=== PATIENT | male | born 1950 | race Caucasian/White ===

== ENCOUNTER 2017-11-30 10:46 | Outpatient (RCR) | payer MEDICARE, OTHER, SELFPAY ==
[2017-11-30 11:54] LABS: International Normalized Ratio 2.3; Prothrombin Time (Protime)PT. 24.3 SECONDS (11.7-14.9)
[2017-11-30 12:11] LABS: Anion Gap 8 (5-15); BUN 52 mg/dL (7-18); BUN/Creat Ratio 18.8 RATIO (10-20); Calcium,Total 9.1 mg/dL (8.5-10.1); Chloride 109 mmol/L (98-107); Creatinine, Serum 2.77 mg/dL (0.70-1.30); EST Glomerular Filtration Rate 24 mL/min (>60); Est Glom Filt Rate - Afr Amer 29 mL/min (>60); Glucose 137 mg/dL (70-110); Potassium 4.2 mmol/L (3.5-5.1); Sodium Level 140 mmol/L (136-145)
== END 2017-11-30 11:10 | disposition home or self-care (01) ==
LOC: LAB 10:46
PROVIDERS: Family Provider Family Medicine; PCP Family Medicine; Visit Provider Internal Medicine Cardiovascular Disease
DX: Z95.2 Presence of prosthetic heart valve (principal); Z79.01 Long term (current) use of 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; I35.9 Nonrheumatic aortic valve disorder, unspecified; I47.2 Ventricular tachycardia; I48.92 Unspecified atrial flutter; I35.1 Nonrheumatic aortic (valve) insufficiency; N18.3 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, stage 3 (moderate); R06.00 Dyspnea, unspecified
CPT/HCPCS: 36415; 80048; 85610

== ENCOUNTER 2017-12-28 08:48 | Outpatient (RCR) | payer MEDICARE, OTHER, SELFPAY ==
[2017-12-28 12:26] LABS: International Normalized Ratio 3.1; Prothrombin Time (Protime)PT. 30.9 SECONDS (11.7-14.9)
== END 2018-01-16 23:59 ==
LOC: BFHLAB 08:48
PROVIDERS: Family Provider Family Medicine; PCP Family Medicine; Visit Provider Physician Assistant Medical
DX: Z79.01 Long term (current) use of 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 (principal)
CPT/HCPCS: 36415; 85610

== ENCOUNTER 2018-01-18 11:05 | Outpatient (RCR) | payer MEDICARE, OTHER, SELFPAY ==
[2018-01-18 11:37] LABS: Hemoglobin 11.4 g/dl (13.0-16.5); Mean Corp Hgb Conc 32.6 g/gl (32-36); Mean Corpuscular Hgb 32.2 pg (27.0-32.0); Mean Corpuscular Volume 98.9 fL (80-94); Platelet Count 125 K/mm3 (150-450); RBC Distribution Width CV 15.1 % (11.6-14.6); RBC Distribution Width SD 52.3 fl (35.1-43.9); Red Blood Count 3.54 M/mm3 (4.6-6.2); White Blood Count 6.7 K/mm3 (4.4-11.0)
[2018-01-18 11:41] LABS: Scan Indicated on CBC? Y/N NO
[2018-01-18 11:44] LABS: International Normalized Ratio 2.5; Prothrombin Time (Protime)PT. 27.1 SECONDS (11.7-14.9)
[2018-01-18 11:56] LABS: Albumin, Serum 4.1 g/dL (3.2-5.0); BUN 47 mg/dL (7-18); BUN/Creat Ratio 19.9 RATIO (10-20); Chloride 105 mmol/L (98-107); Creatinine, Serum 2.36 mg/dL (0.70-1.30); EST Glomerular Filtration Rate 29 mL/min (>60); Est Glom Filt Rate - Afr Amer 35 mL/min (>60); Glucose 100 mg/dL (74-106); Phosphorus 2.7 mg/dL (2.5-4.9); Potassium 4.4 mmol/L (3.5-5.1); Sodium Level 138 mmol/L (136-145)
[2018-01-18 12:14] LABS: PTHIN 103.6 pg/mL (18.4-80.1)
== END 2018-02-16 23:59 ==
LOC: BFHLAB 11:05
PROVIDERS: Family Provider Family Medicine; PCP Family Medicine; Visit Provider Physician Assistant Medical
DX: Z79.01 Long term (current) use of 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 (principal); N17.0 Acute kidney failure with tubular necrosis; N25.81 Secondary hyperparathyroidism of renal origin; D64.9 Anemia, unspecified
CPT/HCPCS: 36415; 80069; 83970; 85027; 85610

== ENCOUNTER → 2018-02-15 14:41 | Outpatient (CLI) | payer MEDICARE, OTHER, SELFPAY ==
[2018-02-15 16:42] LABS: International Normalized Ratio 2.8; Prothrombin Time (Protime)PT. 29.3 SECONDS (11.7-14.9)
== END ==
PROVIDERS: Family Provider Family Medicine; PCP Family Medicine; Visit Provider Internal Medicine Cardiovascular Disease
DX: Z79.01 Long term (current) use of 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 (principal)
CPT/HCPCS: 85610

== ENCOUNTER → 2018-03-14 14:14 | Outpatient (CLI) | payer MEDICARE, OTHER, SELFPAY ==
[2018-03-14 16:16] LABS: International Normalized Ratio 3.4; Prothrombin Time (Protime)PT. 34.3 SECONDS (11.7-14.9)
== END ==
PROVIDERS: Family Provider Family Medicine; PCP Family Medicine; Visit Provider Physician Assistant Medical
DX: Z79.01 Long term (current) use of 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 (principal)
CPT/HCPCS: 36415; 85610

== ENCOUNTER → 2018-04-01 11:56 | Outpatient (CLI) | payer MEDICARE, OTHER, SELFPAY ==
[2018-04-01 12:54] LABS: International Normalized Ratio 3.4; Prothrombin Time (Protime)PT. 34.8 SECONDS (11.7-14.9)
== END ==
PROVIDERS: Family Provider Family Medicine; PCP Family Medicine; Visit Provider Internal Medicine Cardiovascular Disease
DX: Z79.01 Long term (current) use of 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 (principal)
CPT/HCPCS: 36415; 85610

== ENCOUNTER → 2018-04-10 09:23 | Outpatient (CLI) | payer MEDICARE, OTHER, SELFPAY ==
[2018-04-10 12:41] LABS: International Normalized Ratio 2.4; Prothrombin Time (Protime)PT. 26.4 SECONDS (11.7-14.9)
== END ==
PROVIDERS: Family Provider Family Medicine; PCP Family Medicine; Visit Provider Internal Medicine Cardiovascular Disease
DX: Z79.01 Long term (current) use of 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 (principal)
CPT/HCPCS: 36415; 85610

== ENCOUNTER 2018-04-29 10:49 | Outpatient (RCR) | payer MEDICARE, OTHER, SELFPAY ==
--- NOTE | 2018-04-29 10:49 | DT_ITS ---
This patient was seen during an EMR downtime April 22, 2018 - April 29, 2018. This patient may have a combination of paper and electronic documentation or all paper documentation. All documentation is viewable within the e-chart portion of [facility] for each patient visit.
--- NOTE | 2018-04-29 10:49 | DT_ITS ---
This patient was seen during an EMR downtime April 22, 2018 - April 29, 2018. This patient may have a combination of paper and electronic documentation or all paper documentation. All documentation is viewable within the e-chart portion of [facility] for each patient visit.
[2018-04-29 11:50] LABS: International Normalized Ratio 2.5; Prothrombin Time (Protime)PT. 27.1 SECONDS (11.7-14.9)
== END 2018-05-17 12:00 | disposition home or self-care (01) ==
LOC: LAB 10:49
PROVIDERS: Family Provider Family Medicine; PCP Family Medicine; Visit Provider Internal Medicine Cardiovascular Disease
DX: Z79.01 Long term (current) use of 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 (principal)
CPT/HCPCS: 36415; 85610

== ENCOUNTER → 2018-04-29 15:27 | Outpatient (CLI) | payer MEDICARE, OTHER, SELFPAY ==
--- NOTE | 2018-04-29 15:27 | DT_ITS ---
This patient was seen during an EMR downtime April 22, 2018 - April 29, 2018. This patient may have a combination of paper and electronic documentation or all paper documentation. All documentation is viewable within the e-chart portion of [facility] for each patient visit.
== END ==
PROVIDERS: Visit Provider Otolaryngology
DX: H92.10 Otorrhea, unspecified ear (principal); Z79.01 Long term (current) use of 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
CPT/HCPCS: 87070; 87075; 87077; 87186; 87205

== ENCOUNTER → 2018-05-10 09:47 | Outpatient (CLI) | payer MEDICARE, OTHER, SELFPAY ==
[2018-05-10 12:18] LABS: International Normalized Ratio 2.9; Prothrombin Time (Protime)PT. 30.2 SECONDS (11.7-14.9)
== END ==
PROVIDERS: PCP Family Medicine; Visit Provider Internal Medicine Cardiovascular Disease
DX: Z79.01 Long term (current) use of 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 (principal)
CPT/HCPCS: 36415; 85610

== ENCOUNTER → 2018-05-21 10:40 | Outpatient (CLI) | payer MEDICARE, OTHER, SELFPAY ==
[2018-05-21 12:21] LABS: International Normalized Ratio 2.7; Prothrombin Time (Protime)PT. 29.1 SECONDS (11.7-14.9)
== END ==
PROVIDERS: Family Provider Family Medicine; PCP Family Medicine; Visit Provider Internal Medicine Cardiovascular Disease
DX: Z79.01 Long term (current) use of 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 (principal)
CPT/HCPCS: 36415; 85610

== ENCOUNTER → 2018-06-17 11:43 | Outpatient (CLI) | payer MEDICARE, OTHER, SELFPAY ==
[2018-06-17 15:37] LABS: Albumin, Serum 3.5 g/dL (3.2-5.0); BUN 53 mg/dL (7-18); BUN/Creat Ratio 21.4 RATIO (10-20); Calcium,Total 8.5 mg/dL (8.5-10.1); Chloride 111 mmol/L (98-107); Creatinine, Serum 2.48 mg/dL (0.70-1.30); EST Glomerular Filtration Rate 28 mL/min (>60); Est Glom Filt Rate - Afr Amer 33 mL/min (>60); Glucose 95 mg/dL (74-106); Phosphorus 3.4 mg/dL (2.5-4.9); Potassium 4.8 mmol/L (3.5-5.1); Sodium Level 145 mmol/L (136-145)
[2018-06-17 15:42] LABS: Absolute Lymphocyte Count 0.87 X10^3/ul (0.83-4.51); Absolute Neutrophil Count 3.6 X10^3/uL (2.0-7.7); Basophil# 0.03 X10^3/uL; Basophil% 0.6 % (0-1); Eosinophil# 0.27 X10^3/uL; Eosinophils% 5.2 % (0-5); Hematocrit 23.3 % (40-54); Hemoglobin 7.2 g/dl (13.0-16.5); Lymphocyte # 0.87 X10^3/ul (4.0); Lymphocyte % 16.9 % (19-41); Mean Corp Hgb Conc 30.9 g/gl (32-36); Mean Corpuscular Hgb 32.6 pg (27.0-32.0); Mean Corpuscular Volume 105.4 fL (80-94); Mean Platelet Vol. 10.2 fl (6.2-12.0); Monocyte# 0.43 X10^3/uL; Monocyte% 8.3 % (0-10); Neutrophil # 3.55 X10^3/uL (2.7-7.7); Neutrophil % 68.8 % (47-70); Platelet Count 155 K/mm3 (150-450); RBC Distribution Width CV 16.8 % (11.6-14.6); RBC Distribution Width SD 64.6 fl (35.1-43.9); Red Blood Count 2.21 M/mm3 (4.6-6.2); White Blood Count 5.2 K/mm3 (4.4-11.0)
[2018-06-17 15:47] LABS: POSITIVE COUNT NO; POSITIVE DIFFERENTIAL NO; POSITIVE MORPHOLOGY NO
[2018-06-17 15:57] LABS: Anion Gap 11 (5-15); BUN 53 mg/dL (7-18); BUN/Creat Ratio 21.5 RATIO (10-20); Calcium,Total 8.4 mg/dL (8.5-10.1); Chloride 111 mmol/L (98-107); Creatinine, Serum 2.47 mg/dL (0.70-1.30); EST Glomerular Filtration Rate 28 mL/min (>60); Est Glom Filt Rate - Afr Amer 34 mL/min (>60); Glucose 93 mg/dL (74-106); Potassium 4.7 mmol/L (3.5-5.1); Sodium Level 145 mmol/L (136-145); T4 Total, Thyroxin 9.3 ug/dL (4.5-12.1); Thyroid Stim Hormone (TSH) 3.07 uIU/mL (0.358-3.74)
[2018-06-17 16:36] LABS: PTHIN 151.1 pg/mL (18.4-80.1)
[2018-06-19 16:24] LABS: Prothrombin Time (Protime)PT. 31.7 SECONDS (11.7-14.9)
== END ==
PROVIDERS: Internal Medicine Cardiovascular Disease; Physician Assistant Medical; Family Provider Family Medicine; PCP Family Medicine; Visit Provider Internal Medicine Nephrology
DX: N17.0 Acute kidney failure with tubular necrosis (principal); N25.81 Secondary hyperparathyroidism of renal origin; D64.9 Anemia, unspecified; I47.2 Ventricular tachycardia; I10 Essential (primary) hypertension; I95.9 Hypotension, unspecified; I08.0 Rheumatic disorders of both mitral and aortic valves; R60.9 Edema, unspecified; I43 Cardiomyopathy in diseases classified elsewhere; Z95.0 Presence of cardiac pacemaker; Z79.899 Other long term (current) drug therapy
CPT/HCPCS: 36415; 80048; 80069; 83970; 84436; 84443; 85025; 85027; 85610

== ENCOUNTER 2018-06-20 08:51 | Inpatient (IN) | payer MEDICARE, OTHER, SELFPAY ==
[2018-06-20] VITALS (21 sets, daily range): BP systolic 106–147; BP diastolic 42–73; PULSE 70–78; RESP 16–20; TEMP 36.2–36.8; O2SAT 96–100; BMI 30.8; BMI 31.3
--- NOTE | 2018-06-20 09:16 | EKG12_ITS ---
Test Reason : GI BLEED Blood Pressure : / mmHG Vent. Rate : 071 BPM Atrial Rate : 071 BPM P-R Int : 000 ms QRS Dur : 160 ms QT Int : 528 ms P-R-T Axes : 000 -32 119 degrees QTc Int : 573 ms Ventricular-paced rhythm Biventricular pacemaker detected Abnormal ECG Confirmed by LILIBETH NIX, YANIRA ([id number]), editor newspaper SOFIYA JIMÉNEZ ([id number]) on 06/24/2018 1:53:38 PM Referred By: BRYANT Confirmed By:YANIRA MCELROY MD
--- NOTE | 2018-06-20 09:19 | ED.VISSUMM ---
- ER Visit Summary Date of Service: 06/20/18 Chief Complaint: GI bleed History of Present Illness: The patient is a 68 M reports increased fatigue over the past several months. He noted some lightheadedness when standing a few weeks ago and was seen by cardiology office. His labs on June 18 revealed hemoglobin is 7.5 compared to a previous of 10.9 on August 29. His stool guaiac test was positive. Patient received a phone call from his rubber press operator this morning and advised to come to the emergency room. Patient denies abdominal pain. He states his stool has been dark in color but he also takes iron supplements. Past history significant for hypertension, high cholesterol, DVT, endocarditis, non-Hodgkin's lymphoma, currently in remission, atrial flutter with ablation, chronic kidney disease. Patient did have a mechanical aortic valve replacement and acute mitral valve repair. He had abdominal surgery for a rectus sheath hematoma along with appendectomy and cholecystectomy. He does have a pacemaker in place. Physical Examination: Vital signs unremarkable. Patient sitting upright in bed no acute distress. He is alert and talkative. Head neck examination gross unremarkable. Heart is regular rate and rhythm. Mechanical valve click is noted. Lung sounds are clear. Abdomen is soft and nontender. Active bowel sounds noted. Prior surgical scar is noted. Skin examination does reveal pallor. Test Results: EKG is paced at 71. This is unchanged compared to prior. CBC was hemoglobin 7.5 hematocrit 24.7. This is unchanged when compared to 2 days ago. Chemistry studies reveal BUN 72 and a creatinine of 2.88. INR is 2.7. Emergency Department Course and Treatment: Patient was given gentle IV fluids. I spoke with Dr. Grullon, his facilities director. He requested the patient received 2 units of blood with Lasix in between units. Patient's INR needs to maintain between 2.5 and 3.5. I also spoke with Dr. Russo who is available to see the patient as needed for colonoscopy. I spoke with hospitalist and patient will be admitted. Treatment Plan: [] Disposition: Admit Impression: GI bleed This note was generated with [employer] dictation software. It may contain incorrect words, spelling, and punctuation that were not noted in review of the chart prior to signing ED Disposition - Plan for ED Patient: Chief Complaint: GI Bleed Referrals: Vinny Atkinson MD [Primary Care Provider] -
--- NOTE | 2018-06-20 09:23 | ED.DCSUM_ITS ---
- ER Visit Summary Date of Service: 06/20/18 Chief Complaint: GI bleed History of Present Illness: The patient is a 68 M reports increased fatigue over the past several months. He noted some lightheadedness when standing a few weeks ago and was seen by cardiology office. His labs on June 18 revealed hemoglobin is 7.5 compared to a previous of 10.9 on August 29. His stool guaiac test was positive. Patient received a phone call from his stain maker this morning and advised to come to the emergency room. Patient denies abdominal pain. He states his stool has been dark in color but he also takes iron supplements. Past history significant for hypertension, high cholesterol, DVT, endocarditis, non-Hodgkin's lymphoma, currently in remission, atrial flutter with ablation, chronic kidney disease. Patient did have a mechanical aortic valve replacement and acute mitral valve repair. He had abdominal surgery for a rectus sheath hematoma along with appendectomy and cholecystectomy. He does have a pacemaker in place. Physical Examination: Vital signs unremarkable. Patient sitting upright in bed no acute distress. He is alert and talkative. Head neck examination gross unremarkable. Heart is regular rate and rhythm. Mechanical valve click is noted. Lung sounds are clear. Abdomen is soft and nontender. Active bowel sounds noted. Prior surgical scar is noted. Skin examination does reveal pallor. Test Results: EKG is paced at 71. This is unchanged compared to prior. CBC was hemoglobin 7.5 hematocrit 24.7. This is unchanged when compared to 2 days ago. Chemistry studies reveal BUN 72 and a creatinine of 2.88. INR is 2.7. Emergency Department Course and Treatment: Patient was given gentle IV fluids. I spoke with Dr. Grullon, his cost reduction engineer. He requested the patient received 2 units of blood with Lasix in between units. Patient's INR needs to maintain between 2.5 and 3.5. I also spoke with Dr. Russo who is available to see the patient as needed for colonoscopy. I spoke with hospitalist and patient will be admitted. Treatment Plan: [] Disposition: Admit Impression: GI bleed This note was generated with [employer] dictation software. It may contain incorrect words, spelling, and punctuation that were not noted in review of the chart prior to signing ED Disposition - Plan for ED Patient: Chief Complaint: GI Bleed Referrals: Vinny Atkinson MD [Primary Care Provider] -
[2018-06-20 09:30] LABS: Absolute Neutrophil Count 4.7 X10^3/uL (2.0-7.7); Basophil# 0.03 X10^3/uL; Basophil% 0.5 % (0-1); Eosinophil# 0.34 X10^3/uL; Eosinophils% 5.1 % (0-5); Hematocrit 24.7 % (40-54); Hemoglobin 7.5 g/dl (13.0-16.5); International Normalized Ratio 2.7; Lymphocyte % 16.6 % (19-41); Mean Corp Hgb Conc 30.4 g/gl (32-36); Mean Corpuscular Hgb 32.5 pg (27.0-32.0); Mean Corpuscular Volume 106.9 fL (80-94); Mean Platelet Vol. 9.4 fl (6.2-12.0); Monocyte# 0.43 X10^3/uL; Monocyte% 6.5 % (0-10); Neutrophil # 4.73 X10^3/uL (2.7-7.7); Neutrophil % 71.1 % (47-70); Platelet Count 160 K/mm3 (150-450); RBC Distribution Width CV 16.5 % (11.6-14.6); RBC Distribution Width SD 64.5 fl (35.1-43.9); Red Blood Count 2.31 M/mm3 (4.6-6.2); White Blood Count 6.6 K/mm3 (4.4-11.0)
[2018-06-20 09:31] LABS: POSITIVE COUNT NO; POSITIVE DIFFERENTIAL NO; POSITIVE MORPHOLOGY NO
[2018-06-20] MEDS: 0.9% Normal Saline 1,000 ML 150 ML IV (09:33)
[2018-06-20 09:38] LABS: Anion Gap 7 (5-15); BUN 72 mg/dL (7-18); Calcium,Total 8.9 mg/dL (8.5-10.1); Chloride 112 mmol/L (98-107); Creatinine, Serum 2.88 mg/dL (0.70-1.30); EST Glomerular Filtration Rate 23 mL/min (>60); Est Glom Filt Rate - Afr Amer 28 mL/min (>60); Estimated Creatinine Clearance 22.63 ml/min; Glucose 104 mg/dL (74-106); Potassium 5.1 mmol/L (3.5-5.1); Sodium Level 144 mmol/L (136-145)
--- NOTE | 2018-06-20 11:39 | ED.RN ---
dr anthony states pt to go to the floor. pt will be scoped per dr connors later this afternoon
--- NOTE | 2018-06-20 12:09 | ED.RN ---
dr connors on unit. wants pt in edoscopy will.
--- NOTE | 2018-06-20 12:29 | PCM.OPRPT ---
Report of Operation Date of Procedure: 06/20/18 Pre-Operative Diagnosis: anemia, rule out GI bleeding, history of PUD Post-Operative Diagnosis: same Surgery/Procedure Performed:: esophagogastroduodenoscopy - diagnostic Description of Surgical Findings:: blood flecks noted in stomach, pyloric channel ulcer noted - not actively bleeding - clot on it, no duodenal lesions noted, mild gastritis Type of Anesthesia:: MAC Anesthesiologist: Chris Shipley Specimen's removed: none Estimated Blood Loss (mL): none Fluids Replaced: 250 ml RL Description of Procedure: After informed consent was given, the patient was brought to the endoscopy suite and placed in the upright sitting position. Appropriate time out protocol was followed. Appropriate cardiac, blood pressure, and pulse oximetry monitoring was placed. After stable vital signs were noted, the patient was given intravenous conscious sedation. A bite block was placed. The patient was then placed in the left lateral decubitis position. The upper endoscope was lubricated and inserted into the patients mouth and then carefully placed into the patients throat. The patient was asked to swallow and the endoscope was then easily advanced into the patients esophagus. The endoscope was further advanced down into the patients stomach, then past the pylorus, then past the duodenal bulb and then to the second portion of the duodenum. There were no lesions noted in the duodenum. The endoscope was then retracted back into the stomach. There were blood flecks noted in the stomach and there was mild antral gastritis noted. There was a small pyloric channel ulcer noted, there was a clot on it and there was no active bleeding noted. A retroflex view of the stomach revealed no evidence of any masses. No ulcers, no strictures, no suspicious lesions were noted. The endoscope was retracted into the esophagus, where any insufflated gas in the stomach was aspirated out. A small hiatal hernia was noted, it appeared to have a slight sliding component. The gastroesophageal junction appeared normal. The remainder of the esophagus was normal. The upper endoscope was removed intact. Patient tolerated procedure well. - Complications none noted
--- NOTE | 2018-06-20 12:34 | OP.PCM_ITS ---
Report of Operation Date of Procedure: 06/20/18 Pre-Operative Diagnosis: anemia, rule out GI bleeding, history of PUD Post-Operative Diagnosis: same Surgery/Procedure Performed:: esophagogastroduodenoscopy - diagnostic Description of Surgical Findings:: blood flecks noted in stomach, pyloric channel ulcer noted - not actively bleeding - clot on it, no duodenal lesions noted, mild gastritis Type of Anesthesia:: MAC Anesthesiologist: Chris Shipley Specimen's removed: none Estimated Blood Loss (mL): none Fluids Replaced: 250 ml RL Description of Procedure: After informed consent was given, the patient was brought to the endoscopy suite and placed in the upright sitting position. Appropriate time out protocol was followed. Appropriate cardiac, blood pressure, and pulse oximetry monitoring was placed. After stable vital signs were noted, the patient was given intravenous conscious sedation. A bite block was placed. The patient was then placed in the left lateral decubitis position. The upper endoscope was lubricated and inserted into the patient?s mouth and then carefully placed into the patient?s throat. The patient was asked to swallow and the endoscope was then easily advanced into the patient?s esophagus. The endoscope was further advanced down into the patient?s stomach, then past the pylorus, then past the duodenal bulb and then to the second portion of the duodenum. There were no lesions noted in the duodenum. The endoscope was then retracted back into the stomach. There were blood flecks noted in the stomach and there was mild antral gastritis noted. There was a small pyloric channel ulcer noted, there was a clot on it and there was no active bleeding noted. A retroflex view of the stomach revealed no evidence of any masses. No ulcers, no strictures, no suspicious lesions were noted. The endoscope was retracted into the esophagus, where any insufflated gas in the stomach was aspirated out. A small hiatal hernia was noted, it appeared to have a slight sliding component. The gastroesophageal junction appeared normal. The remainder of the esophagus was normal. The upper endoscope was removed intact. Patient tolerated procedure well. - Complications none noted
[2018-06-20] MEDS: 0.9% NaCl Peripheral Flush Adult/Peds IV (14:03)
[2018-06-20] MEDS: Furosemide 40 MG/4 ML Vial IV (14:04)
[2018-06-20] MEDS: 0.9% Normal Saline 1,000 ML 75 ML IV (14:49)
[2018-06-20 18:29] LABS: Hematocrit 26.9 % (40-54); Hemoglobin 8.6 g/dl (13.0-16.5)
--- NOTE | 2018-06-20 20:05 | PCM.HP.STD ---
Problem List (1) Anemia Status: Acute Qualifiers: Anemia type: unspecified type Qualified Code(s): D64.9 - Anemia, unspecified (2) Hemoccult positive stool Status: Acute History of Present Illness Date of Admission: 06/20/18 Chief Complaint: Anemia, Hemoccult positive stool The patient is a 68 year old M who was seen in the emergency room at [facility] after being sent in by his orchard manager due to abnormal labs and Hemoccult positive stool. Patient was seen in his power ballast machine operator's office last Sunday, he complained of weakness and lab was ordered which the patient did not obtain until Sunday of this week. Patient was contacted because his hemoglobin was low at 7.2, his hemoglobin then was repeated on 06/18/18, it was low again at 7.5. Patient had an appointment with his orchard manager today who saw the patient and did Hemoccult of the stool which was positive for blood, patient was then sent to the emergency room for evaluation. Patient takes chronic iron for chronic anemia, he is on chronic 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 due to mechanical heart valve. Patient denies any hematemesis, he denies any rectal bleeding, he denies any nausea, or vomiting. Patient also denies any diarrhea. Evaluation in the emergency room included labs which were remarkable for hemoglobin of 7.5, patient's INR was 2.7, patient's creatinine was elevated at 2.88, BUN was 72. 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) AVR 2002 Paroxysmal ventricular tachycardia (Chronic) Atrial flutter (Chronic) AV junction ablation 03/01 Hyperlipidemia (Chronic) Cardiomyopathy in disease classified elsewhere (Chronic) High triglycerides (Chronic) 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, stage III (moderate) (Chronic) Benign essential hypertension (Chronic) History of mechanical aortic valve replacement (Chronic ~1986) Medical History: Medical History (Last Reviewed 06/20/18 @ 08:11 by Patience Mccracken) Biventricular cardiac pacemaker in situ (Chronic) Z95.0 Rheumatic mitral insufficiency (Chronic) I05.1 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) I06.0 AVR 2002 Bacterial endocarditis (Resolved) 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 septic chock secondary to MRSA bacteremia Paroxysmal ventricular tachycardia (Chronic) I47.2 Atrial flutter (Chronic) I48.92 AV junction ablation 03/01 Hyperlipidemia (Chronic) E78.5 Cardiomyopathy in disease classified elsewhere (Chronic) I43 High triglycerides (Chronic) E78.1 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, stage III (moderate) (Chronic) N18.3 Benign essential hypertension (Chronic) I10 Gout M10.9 MRSA (methicillin resistant Staphylococcus aureus) infection A49.02 MIA (obstructive sleep apnea) G47.33 Anemia D64.9 Diffuse large b-cell lymphoma, extranodal and solid organ sites C83.39 GI bleed K92.2 History of DVT (deep vein thrombosis) Z86.718 TIA (transient ischemic attack) G45.9 Allergies No Known Allergies Allergy (Verified 06/20/18 08:54) Home Medications: Ambulatory Orders Medication Instructions Recorded Aspirin [Aspirin, Baby] 81 mg PO DAILY@0800 02/21/16 Multivitamins,Therapeutic 1 tab PO DAILY 06/06/16 [Multivitamin] Allopurinol [Zyloprim] 100 mg PO DAILYCM 08/29/17 Calcitriol [Rocaltrol] 0.25 mg PO DAILY 08/29/17 polysaccharide iron complex 150 mg 150 mg PO QDAY cap 11/01/17 iron capsule sodium bicarbonate 650 mg tablet 650 mg PO BID #180 tab 11/01/17 doxycycline hyclate 100 mg capsule 100 mg PO BID #180 cap 01/18/18 furosemide 20 mg tablet 20 mg PO QDAY #90 tab 01/18/18 tamsulosin 0.4 mg capsule 0.4 mg PO DAILY #90 cap 01/18/18 Carvedilol [Coreg (Beta Lloyd)] 6.25 mg PO BID 06/20/18 Warfarin Sodium [Coumadin] 6 mg PO ONCE 06/20/18 Warfarin [Coumadin (PBKC)] 1 mg PO DAILY 06/20/18 Surgical History: Surgical History (Last Reviewed 06/20/18 @ 08:11 by Patience Mccracken) dual chamber pacemaker implantation (Resolved) Onset Date: ~10/2010 Reimplantation of pacemaker 05/26/16 BiV PPM History of mechanical aortic valve replacement (Chronic) Onset Date: ~1986 Z95.2 History of aortic valve replacement Onset Date: ~08/2003 Z95.2 987 aortic valve replacement, AVR pericardial tissue valve in 2002 History of appendectomy Z98.890, Z90.49 History of cholecystectomy Z98.890, Z90.49 History of evacuation of hematoma Z98.890 03/02/16 History of mitral valve repair Onset Date: ~08/2003 Z98.890 with pericardial tissue valve Surgical History: appendectomy, cholecystectomy, pacemaker implantation, - - History of aortic valve replacement ?3-mechanical, mitral valve repair, surgery for removal of rectus muscle hematoma Psychiatric History: No pertinent psych hx Lives: Spouse/ Significant Other Smoking Status: Never smoker Tobacco Use: Non-smoker Alcohol: None Drugs: None - *Family History Maternal Family History: Family History (Last Reviewed 06/20/18 @ 08:11 by Patience Mccracken) Father CAD (coronary artery disease) Brother CAD (coronary artery disease) Mother Diabetes Sister Breast cancer Diabetes History Items: Diabetes Paternal Family History: Family History (Last Reviewed 06/20/18 @ 08:11 by Patience Mccracken) Father CAD (coronary artery disease) Brother CAD (coronary artery disease) Mother Diabetes Sister Breast cancer Diabetes History Items: Heart Disease Sibling Family History: Family History (Last Reviewed 06/20/18 @ 08:11 by Patience Mccracken) Father CAD (coronary artery disease) Brother CAD (coronary artery disease) Mother Diabetes Sister Breast cancer Diabetes History Items: Cancer - breast cancer x2 sisters Review of Systems Constitutional: Reports: Weakness, Fatigue. Denies: Anorexia, Chills, Fever, Night Sweats, Malaise, Weight Change Eyes: Denies: Blurred vision, Cataracts, Conjunctivae Inflammation, Double vision, Drainage HEENT: Denies: Difficulty Swallowing, Dysphasia, Ear Pain, Eye Pain, Hearing Changes, Nasal bleeding, Nasal Congestion, Post Nasal Drip Cardiovascular: Denies: Chest Pain, Claudication, Chest Pressure, Chest Tightness, Edema, Heaviness, Orthopnea, Palpitations, Paroxysmal Noc. Dyspnea Respiratory: Denies: Cough, Hemoptysis, Pleuritic Pain, Shortness of Breath, Shortness of breath at rest, Shortness of breath upon exertion, Sputum production, Wheezing Gastrointestinal: Denies: Abdominal Pain, Constipation, Diarrhea, Hematemesis, Hematochezia, Nausea, Melena, Vomiting Genitourinary: Denies: Dysuria, Frequency, Hematuria, Hesitancy, Urgency Musculoskeletal: Denies: Back Pain, Foot Pain, Hand Pain, Joint Pain, Joint stiffness, Joint swelling, Joint Tenderness, Leg Pain Skin: Denies: Dryness, Pruritis, Rash Neurological: Denies: Blurred vision, Double vision, Change in Speech, Slurred speech, Difficulty swallowing, Focal weakness, Headaches, Incoordination, Numbness, Tingling Psychiatric: Denies: Anxiety, Depression, Homicidal Ideations, Suicidal Ideations Endocrine: Denies: Change in Body Habitus, Heat/ Cold Intolerance, Polydipsia, Polyuria Hematologic/ Lymphatic: Denies: Adenopathy, Anemia, Easy Bruising, Easy Bleeding, Petechiae, Purpura VTE Information - Inpt Only VTE Present on Admission: No VTE Mechan Device Prophylaxis: None VTE Pharm Prophylaxis ordered?: No Reason prophylaxis not ordered:: Medical Contraindication - Patient on Coumadin Patient Problems: Active and Suspected Problems (Last Reviewed 06/20/18 @ 08:11 by Patience Mccracken) Anemia (Acute) Hemoccult positive stool (Acute) - Physical Exam General: Alert, Oriented x3, Cooperative, No apparent distress, Well developed, Well nourished HEENT: Atraumatic, PERRLA, EOMI, Normocephalic Oral: Moist Mucosa Neck: Supple, No JVD, No Nuchal Rigidity, Trachea Midline, Thyroid Normal Size and Texture Lungs: Clear to auscultation, Normal air movement, No rhonchi, No wheeze, No rales Cardiovascular: Regular rate, Regular Rhythm - Patient in paced rhythm, Normal S1, Normal S2, No murmurs, No Ectopic Activity Abdomen: Bowel Sounds Present, Soft, Non Tender, Non-Distended, - - Large scarred area over the patient's anterior abdominal wall, right ventral hernia present Extremities: No clubbing, No cyanosis, No edema, Capillary Refill Less than 3 Seconds Skin: No rashes, No breakdown Musculoskeletal: No Tenderness to Palpation of Joints or Extremities Neurological: Cranial nerves II-XII grossly intact, Neuro grossly intact, Sensory exam intact to light touch and pain, Coordination normal Psych/Mental Status: Normal Affect, Appropriate, Alert and oriented to time, place, person, mood and affect Vital Signs Temp Pulse Resp BP Pulse Ox 97.6 F L 70 16 141/62 H 97 06/20/18 16:30 06/20/18 18:59 06/20/18 16:30 06/20/18 16:30 06/20/18 16:30 Oxygen Delivery Method Room Air Weight: 90.7 kg Body Mass Index (BMI) 31.3 Intake and Output for Last 24 Hours 06/18/18 06/19/18 06/20/18 23:59 23:59 23:59 Intake Total 2491 / 2491 Output Total 2200 / 2200 Balance 291 / 291 Laboratory Tests Past 24 Hrs 06/20/18 06/20/18 18:04 18:04 Hgb 8.6 L Hct 26.9 L Vitamin B12 Pending Assessment/Plan All Active Problems (Last Reviewed 06/20/18 @ 08:11 by Patience Mccracken) Anemia (Acute) Hemoccult positive stool (Acute) dual chamber pacemaker implantation (Resolved ~10/2010) Bacterial endocarditis (Resolved) Shortness of breath (Acute) Other chest pain (Acute) Abdominal hernia (Resolved) Endocarditis due to Staphylococcus (Resolved) Mass of anterior abdominal wall (Resolved) Rectus sheath hematoma (Resolved) Sepsis (Resolved) #1 acute GI hemorrhage on a backdrop of chronic anemia-patient will be admitted to PCU, he will be seen by general surgery and have an EGD performed today, I will place him on a PPI IV and monitor his blood count. #2 acute blood loss anemia on a backdrop of chronic anemia-patient will receive 2 units packed red blood cells, H&H will be monitored #3 valvular heart disease-patient has mechanical aortic valve #4 Coagulopathy secondary to chronic Coumadin usage, INR will be monitored #5 chronic antibiotic usage for prophylaxis for aortic valve infection #6 non-Hodgkin's [id number] type, currently in remission #7 Pulmonary hypertension #8 chronic kidney disease stage IV #9 essential hypertension #10 biventricular pacemaker Code Visit Inpatient E&M: 49862 Init Hosp L3
--- NOTE | 2018-06-20 20:10 | HP.PCM_ITS ---
Problem List (1) Anemia Status: Acute Qualifiers: Anemia type: unspecified type Qualified Code(s): D64.9 - Anemia, unspecified (2) Hemoccult positive stool Status: Acute History of Present Illness Date of Admission: 06/20/18 Chief Complaint: Anemia, Hemoccult positive stool The patient is a 68 year old M who was seen in the emergency room at [facility] after being sent in by his practice administrator due to abnormal labs and Hemoccult positive stool. Patient was seen in his can sealer's office last Sunday, he complained of weakness and lab was ordered which the patient did not obtain until Sunday of this week. Patient was contacted because his hemoglobin was low at 7.2, his hemoglobin then was repeated on 06/18/18, it was low again at 7.5. Patient had an appointment with his practice administrator today who saw the patient and did Hemoccult of the stool which was positive for blood, patient was then sent to the emergency room for evaluation. Patient takes chronic iron for chronic anemia, he is on chronic 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 due to mechanical heart valve. Patient denies any hematemesis, he denies any rectal bleeding, he denies any nausea, or vomiting. Patient also denies any diarrhea. Evaluation in the emergency room included labs which were remarkable for hemoglobin of 7.5, patient's INR was 2.7, patient's creatinine was elevated at 2.88, BUN was 72. 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) AVR 2002 Paroxysmal ventricular tachycardia (Chronic) Atrial flutter (Chronic) AV junction ablation 03/01 Hyperlipidemia (Chronic) Cardiomyopathy in disease classified elsewhere (Chronic) High triglycerides (Chronic) 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, stage III (moderate) (Chronic) Benign essential hypertension (Chronic) History of mechanical aortic valve replacement (Chronic ~1986) Medical History: Medical History (Last Reviewed 06/20/18 @ 08:11 by Patience Mccracken) Biventricular cardiac pacemaker in situ (Chronic) Z95.0 Rheumatic mitral insufficiency (Chronic) I05.1 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) I06.0 AVR 2002 Bacterial endocarditis (Resolved) 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 septic chock secondary to MRSA bacteremia Paroxysmal ventricular tachycardia (Chronic) I47.2 Atrial flutter (Chronic) I48.92 AV junction ablation 03/01 Hyperlipidemia (Chronic) E78.5 Cardiomyopathy in disease classified elsewhere (Chronic) I43 High triglycerides (Chronic) E78.1 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, stage III (moderate) (Chronic) N18.3 Benign essential hypertension (Chronic) I10 Gout M10.9 MRSA (methicillin resistant Staphylococcus aureus) infection A49.02 MIA (obstructive sleep apnea) G47.33 Anemia D64.9 Diffuse large b-cell lymphoma, extranodal and solid organ sites C83.39 GI bleed K92.2 History of DVT (deep vein thrombosis) Z86.718 TIA (transient ischemic attack) G45.9 Allergies No Known Allergies Allergy (Verified 06/20/18 08:54) Home Medications: Ambulatory Orders Medication Instructions Recorded Aspirin [Aspirin, Baby] 81 mg PO DAILY@0800 02/21/16 Multivitamins,Therapeutic 1 tab PO DAILY 06/06/16 [Multivitamin] Allopurinol [Zyloprim] 100 mg PO DAILYCM 08/29/17 Calcitriol [Rocaltrol] 0.25 mg PO DAILY 08/29/17 polysaccharide iron complex 150 mg 150 mg PO QDAY cap 11/01/17 iron capsule sodium bicarbonate 650 mg tablet 650 mg PO BID #180 tab 11/01/17 doxycycline hyclate 100 mg capsule 100 mg PO BID #180 cap 01/18/18 furosemide 20 mg tablet 20 mg PO QDAY #90 tab 01/18/18 tamsulosin 0.4 mg capsule 0.4 mg PO DAILY #90 cap 01/18/18 Carvedilol [Coreg (Beta Lloyd)] 6.25 mg PO BID 06/20/18 Warfarin Sodium [Coumadin] 6 mg PO ONCE 06/20/18 Warfarin [Coumadin ([facility])] 1 mg PO DAILY 06/20/18 Surgical History: Surgical History (Last Reviewed 06/20/18 @ 08:11 by Patience Mccracken) dual chamber pacemaker implantation (Resolved) Onset Date: ~10/2010 Reimplantation of pacemaker 05/26/16 BiV PPM History of mechanical aortic valve replacement (Chronic) Onset Date: ~1986 Z95.2 History of aortic valve replacement Onset Date: ~08/2003 Z95.2 987 aortic valve replacement, AVR pericardial tissue valve in 2002 History of appendectomy Z98.890, Z90.49 History of cholecystectomy Z98.890, Z90.49 History of evacuation of hematoma Z98.890 03/02/16 History of mitral valve repair Onset Date: ~08/2003 Z98.890 with pericardial tissue valve Surgical History: appendectomy, cholecystectomy, pacemaker implantation, - - History of aortic valve replacement ?3-mechanical, mitral valve repair, surgery for removal of rectus muscle hematoma Psychiatric History: No pertinent psych hx Lives: Spouse/ Significant Other Smoking Status: Never smoker Tobacco Use: Non-smoker Alcohol: None Drugs: None - *Family History Maternal Family History: Family History (Last Reviewed 06/20/18 @ 08:11 by Patience Mccracken) Father CAD (coronary artery disease) Brother CAD (coronary artery disease) Mother Diabetes Sister Breast cancer Diabetes History Items: Diabetes Paternal Family History: Family History (Last Reviewed 06/20/18 @ 08:11 by Patience Mccracken) Father CAD (coronary artery disease) Brother CAD (coronary artery disease) Mother Diabetes Sister Breast cancer Diabetes History Items: Heart Disease Sibling Family History: Family History (Last Reviewed 06/20/18 @ 08:11 by Patience Mccracken) Father CAD (coronary artery disease) Brother CAD (coronary artery disease) Mother Diabetes Sister Breast cancer Diabetes History Items: Cancer - breast cancer x2 sisters Review of Systems Constitutional: Reports: Weakness, Fatigue. Denies: Anorexia, Chills, Fever, Night Sweats, Malaise, Weight Change Eyes: Denies: Blurred vision, Cataracts, Conjunctivae Inflammation, Double vision, Drainage HEENT: Denies: Difficulty Swallowing, Dysphasia, Ear Pain, Eye Pain, Hearing Changes, Nasal bleeding, Nasal Congestion, Post Nasal Drip Cardiovascular: Denies: Chest Pain, Claudication, Chest Pressure, Chest Tightness, Edema, Heaviness, Orthopnea, Palpitations, Paroxysmal Noc. Dyspnea Respiratory: Denies: Cough, Hemoptysis, Pleuritic Pain, Shortness of Breath, Shortness of breath at rest, Shortness of breath upon exertion, Sputum production, Wheezing Gastrointestinal: Denies: Abdominal Pain, Constipation, Diarrhea, Hematemesis, Hematochezia, Nausea, Melena, Vomiting Genitourinary: Denies: Dysuria, Frequency, Hematuria, Hesitancy, Urgency Musculoskeletal: Denies: Back Pain, Foot Pain, Hand Pain, Joint Pain, Joint stiffness, Joint swelling, Joint Tenderness, Leg Pain Skin: Denies: Dryness, Pruritis, Rash Neurological: Denies: Blurred vision, Double vision, Change in Speech, Slurred speech, Difficulty swallowing, Focal weakness, Headaches, Incoordination, Numbness, Tingling Psychiatric: Denies: Anxiety, Depression, Homicidal Ideations, Suicidal Ideations Endocrine: Denies: Change in Body Habitus, Heat/ Cold Intolerance, Polydipsia, Polyuria Hematologic/ Lymphatic: Denies: Adenopathy, Anemia, Easy Bruising, Easy Bleeding , Petechiae, Purpura VTE Information - Inpt Only VTE Present on Admission: No VTE Mechan Device Prophylaxis: None VTE Pharm Prophylaxis ordered?: No Reason prophylaxis not ordered:: Medical Contraindication - Patient on Coumadin Patient Problems: Active and Suspected Problems (Last Reviewed 06/20/18 @ 08:11 by Patience Mccracken) Anemia (Acute) Hemoccult positive stool (Acute) - Physical Exam General: Alert, Oriented x3, Cooperative, No apparent distress, Well developed, Well nourished HEENT: Atraumatic, PERRLA, EOMI, Normocephalic Oral: Moist Mucosa Neck: Supple, No JVD, No Nuchal Rigidity, Trachea Midline, Thyroid Normal Size and Texture Lungs: Clear to auscultation, Normal air movement, No rhonchi, No wheeze, No rales Cardiovascular: Regular rate, Regular Rhythm - Patient in paced rhythm, Normal S1, Normal S2, No murmurs, No Ectopic Activity Abdomen: Bowel Sounds Present, Soft, Non Tender, Non-Distended, - - Large scarred area over the patient's anterior abdominal wall, right ventral hernia present Extremities: No clubbing, No cyanosis, No edema, Capillary Refill Less than 3 Seconds Skin: No rashes, No breakdown Musculoskeletal: No Tenderness to Palpation of Joints or Extremities Neurological: Cranial nerves II-XII grossly intact, Neuro grossly intact, Sensory exam intact to light touch and pain, Coordination normal Psych/Mental Status: Normal Affect, Appropriate, Alert and oriented to time, place, person, mood and affect Vital Signs Temp Pulse Resp BP Pulse Ox 97.6 F L 70 16 141/62 H 97 06/20/18 16:30 06/20/18 18:59 06/20/18 16:30 06/20/18 16:30 06/20/18 16:30 Oxygen Delivery Method Room Air Weight: 90.7 kg Body Mass Index (BMI) 31.3 Intake and Output for Last 24 Hours 06/18/18 06/19/18 06/20/18 23:59 23:59 23:59 Intake Total 2491 / 2491 Output Total 2200 / 2200 Balance 291 / 291 Laboratory Tests Past 24 Hrs 06/20/18 06/20/18 18:04 18:04 Hgb 8.6 L Hct 26.9 L Vitamin B12 Pending Assessment/Plan All Active Problems (Last Reviewed 06/20/18 @ 08:11 by Patience Mccracken) Anemia (Acute) Hemoccult positive stool (Acute) dual chamber pacemaker implantation (Resolved ~10/2010) Bacterial endocarditis (Resolved) Shortness of breath (Acute) Other chest pain (Acute) Abdominal hernia (Resolved) Endocarditis due to Staphylococcus (Resolved) Mass of anterior abdominal wall (Resolved) Rectus sheath hematoma (Resolved) Sepsis (Resolved) #1 acute GI hemorrhage on a backdrop of chronic anemia-patient will be admitted to PCU, he will be seen by general surgery and have an EGD performed today, I will place him on a PPI IV and monitor his blood count. #2 acute blood loss anemia on a backdrop of chronic anemia-patient will receive 2 units packed red blood cells, H&H will be monitored #3 valvular heart disease-patient has mechanical aortic valve #4 Coagulopathy secondary to chronic Coumadin usage, INR will be monitored #5 chronic antibiotic usage for prophylaxis for aortic valve infection #6 non-Hodgkin's [id number] type, currently in remission #7 Pulmonary hypertension #8 chronic kidney disease stage IV #9 essential hypertension #10 biventricular pacemaker Code Visit Inpatient E&M: 83963 Init Hosp L3
[2018-06-20] MEDS: Carvedilol 6.25 MG Tablet PO (21:12)
[2018-06-20] MEDS: Sodium Bicarbonate 650 MG Tablet PO (21:12)
[2018-06-20] MEDS: Doxycycline 100 MG CAPSULE PO (21:13)
[2018-06-20 21:55] LABS: Hematocrit 26.2 % (40-54); Hemoglobin 8.3 g/dl (13.0-16.5)
[2018-06-21 00:10] VITALS: BP 122/46; PULSE 70; RESP 16; TEMP 36.6; O2SAT 98
[2018-06-21 02:28] LABS: Hematocrit 25.4 % (40-54); Hemoglobin 8.1 g/dl (13.0-16.5)
[2018-06-21 02:38] LABS: International Normalized Ratio 2.9; Prothrombin Time (Protime)PT. 30.2 SECONDS (11.7-14.9)
[2018-06-21 02:41] LABS: Anion Gap 6 (5-15); BUN 60 mg/dL (7-18); BUN/Creat Ratio 24.4 RATIO (10-20); Calcium,Total 8.3 mg/dL (8.5-10.1); Chloride 112 mmol/L (98-107); Creatinine, Serum 2.46 mg/dL (0.70-1.30); EST Glomerular Filtration Rate 28 mL/min (>60); Est Glom Filt Rate - Afr Amer 34 mL/min (>60); Glucose 90 mg/dL (74-106); Potassium 4.4 mmol/L (3.5-5.1); Sodium Level 143 mmol/L (136-145)
[2018-06-21 03:00] VITALS: PULSE 70
[2018-06-21 05:13] VITALS: BP 113/46; PULSE 72; RESP 16; TEMP 36.6; O2SAT 97
[2018-06-21] MEDS: 0.9% Normal Saline 1,000 ML 75 ML IV (05:16)
[2018-06-21 06:58] VITALS: PULSE 78
[2018-06-21 09:57] VITALS: BP 135/63; PULSE 70; RESP 16; TEMP 36.9; O2SAT 99
[2018-06-21] MEDS: Aspirin 81 MG TAB.CHEW PO (09:57)
[2018-06-21] MEDS: Sodium Bicarbonate 650 MG Tablet PO (09:57)
[2018-06-21] MEDS: Furosemide 20 MG Tablet PO (09:57)
[2018-06-21] MEDS: Tamsulosin HCl 0.4 MG Capsule PO (09:57)
[2018-06-21] MEDS: Iron Polysaccharide Complex 150 MG CAPSULE PO (09:57)
[2018-06-21] MEDS: Pantoprazole Sodium 40 MG Tablet PO (09:57)
[2018-06-21] MEDS: Allopurinol 100 MG Tablet PO (09:57)
[2018-06-21] MEDS: Doxycycline 100 MG CAPSULE PO (09:57)
[2018-06-21] MEDS: Carvedilol 6.25 MG Tablet PO (09:57)
[2018-06-21] MEDS: Calcitriol 0.25 MCG Capsule PO (09:57)
[2018-06-21] MEDS: Multivitamins,Therapeutic Tablet 1 TABLET PO (09:57)
[2018-06-21 10:28] LABS: Vitamin B12 805 pg/mL (211-911)
[2018-06-21 10:58] VITALS: PULSE 70
--- NOTE | 2018-06-21 11:47 | DCINST_ITS ---
- Discharge Diagnoses Current Active Problems: Current Active and Chronic Problems (Last Reviewed 06/20/18 @ 08:11 by Patience Mccracken) History of non-Hodgkin's lymphoma (Chronic) Anemia (Acute) Hemoccult positive stool (Acute) GI bleed (Acute) You will use the following diet at home:: No restrictions Your food should be the consistency of: Regular Your liquids should be the consistency of: Regular/Thin Discharge Activity: Return to Normal Activity Weight Bearing Status: Full weight bearing Allergies/Adverse Reactions: Allergies No Known Allergies Allergy (Verified 06/20/18 08:54) Medications to take at Discharge Aspirin [Aspirin, Baby] 81 mg PO DAILY@0800 02/21/16 Multivitamins,Therapeutic [Multivitamin] 1 tab PO DAILY 06/06/16 Allopurinol [Zyloprim] 100 mg PO DAILYCM 08/29/17 Calcitriol [Rocaltrol] 0.25 mg PO DAILY 08/29/17 polysaccharide iron complex 150 mg iron capsule 150 mg PO QDAY cap 11/01/17 sodium bicarbonate 650 mg tablet 650 mg PO BID #180 tab 11/01/17 doxycycline hyclate 100 mg capsule 100 mg PO BID #180 cap 01/18/18 furosemide 20 mg tablet 20 mg PO QDAY #90 tab 01/18/18 tamsulosin 0.4 mg capsule 0.4 mg PO DAILY #90 cap 01/18/18 Carvedilol [Coreg (Beta Lloyd)] 6.25 mg PO BID 06/20/18 Warfarin Sodium [Coumadin] 6 mg PO ONCE 06/20/18 Warfarin [Coumadin] 1 mg PO DAILY 06/20/18 Warfarin [Coumadin] 1 mg PO DAILY@1700 tablet 06/21/18 Warfarin [Coumadin] 6 mg PO DAILY@1700 tablet 06/21/18 Primary Care Physician: Vinny Atkinson MD [Primary Care Provider] - Please follow up with your Primary Care Physician in: in 1-2 weeks Test Results: Test results from this visit will be discussed in further detail at your follow- up appointment, if applicable. Please Follow Up With: Karthikeyan Turner MD When: as directed
--- NOTE | 2018-06-21 12:30 | CASEMGMT ---
See RN CM Assessment Link. DC Plan: Home on discharge -No needs identified. Angelina LIGHTN RN ACM
--- NOTE | 2018-06-22 11:58 | PCM.DC.SUM ---
Discharge Date and Diagnosis - Problem List Patient Problems: Active and Suspected Problems (Last Reviewed 06/20/18 @ 08:11 by Patience Mccracken) GI bleed (Acute) Date of Admission: 06/20/18 Date of Discharge: 06/21/18 - Primary Discharge Diagnosis Active and Suspected Problems (Last Reviewed 06/20/18 @ 08:11 by Patience Mccracken) #1 acute upper GI bleed secondary to duodenal ulceration #2 acute blood loss anemia requiring blood transfusion #3 valvular heart disease-patient has mechanical aortic valve #4 Coagulopathy secondary to chronic Coumadin usage #5 chronic antibiotic usage for prophylaxis for aortic valve infection #6 non-Hodgkin's [id number] type, currently in remission #7 Pulmonary hypertension #8 chronic kidney disease stage IV #9 essential hypertension #10 biventricular pacemaker - Secondary Discharge Diagnosis Chronic Problems (Last Reviewed 06/20/18 @ 08:11 by Patience Mccracken) History of non-Hodgkin's lymphoma (Chronic) Biventricular cardiac pacemaker in situ (Chronic) Encounter for long-term (current) use of high-risk medication (Chronic) Rheumatic mitral insufficiency (Chronic) 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) AVR 2002 Paroxysmal ventricular tachycardia (Chronic) Atrial flutter (Chronic) AV junction ablation 03/01 Hyperlipidemia (Chronic) Cardiomyopathy in disease classified elsewhere (Chronic) High triglycerides (Chronic) 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, stage III (moderate) (Chronic) Benign essential hypertension (Chronic) History of mechanical aortic valve replacement (Chronic ~1986) Hospital Course and Treatment Operations: None Procedures: Blood transfusion, EGD Summary of Care Provided: The patient is a 68 year old M who was sent to the emergency room for evaluation from his industrial relations officer office due to anemia with Hemoccult positive stool. Patient's hemoglobin in the emergency room was 7.5, INR was elevated, creatinine was elevated at 2.88, BUN was 72. Patient was admitted to PCU, he was given blood transfusions, and underwent an EGD by general surgery which showed a duodenal ulceration with a clot on it but no active bleeding. Patient was treated with PPI, on 06/21/18, patient was seen and examined and felt to be in stable condition for discharge home, at that time, his hemoglobin had been stable over the last 24 hours Discharge Activity: Return to Normal Activity Weight Bearing Status: Full weight bearing Home Medications: Medications to take at Discharge Aspirin [Aspirin, Baby] 81 mg PO DAILY@0800 02/21/16 Multivitamins,Therapeutic [Multivitamin] 1 tab PO DAILY 06/06/16 Allopurinol [Zyloprim] 100 mg PO DAILYCM 08/29/17 Calcitriol [Rocaltrol] 0.25 mg PO DAILY 08/29/17 polysaccharide iron complex 150 mg iron capsule 150 mg PO QDAY cap 11/01/17 sodium bicarbonate 650 mg tablet 650 mg PO BID #180 tab 11/01/17 doxycycline hyclate 100 mg capsule 100 mg PO BID #180 cap 01/18/18 furosemide 20 mg tablet 20 mg PO QDAY #90 tab 01/18/18 tamsulosin 0.4 mg capsule 0.4 mg PO DAILY #90 cap 01/18/18 Carvedilol [Coreg (Beta Lloyd)] 6.25 mg PO BID 06/20/18 Warfarin Sodium [Coumadin] 6 mg PO ONCE 06/20/18 Warfarin [Coumadin] 1 mg PO DAILY 06/20/18 Pantoprazole Sodium [Protonix] 40 mg PO DAILY #30 tab 06/21/18 Warfarin [Coumadin] 1 mg PO DAILY@1700 tablet 06/21/18 Warfarin [Coumadin] 6 mg PO DAILY@1700 tablet 06/21/18 Following Prescrptions Were Given to Patient: Pantoprazole Sodium [Protonix] 40 mg PO DAILY #30 tab Primary Care Physician: Vinny Atkinson MD [Primary Care Provider] - Please follow up with your Primary Care Physician in: in 1-2 weeks Please Follow Up With: Karthikeyan Turner MD When: as directed Disposition: Home Minutes spent on discharge:: 32 Patient Condition:: Stable Medical Necessity - Tobacco Use Smoking Status: Never smoker Tobacco Use: Non-smoker Meaningful Use Info Meaningful Use Diagnoses (Choose all that apply): None applicable Code Visit Inpatient E&M: 15739 Disch Hosp
[2018-06-22 12:30] LABS: H. Pylori Antibody (IgG) 0.26 (0.00-0.79)
--- NOTE | 2018-06-24 15:59 | CASEMGMT ---
GIO HEARN DC PHONE CALL. DC DATE: 06/21/18 MAGALIE DC: home Intro role of CM to patient via phone. 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 No questions re: dc instructions, prescriptions. GIO HEARN thanked pt for using [facility]. No suggestions given for care improvements. Pt was happy with care received. Angelina MARIE RN ACM
== END 2018-06-21 12:44 | disposition home or self-care (01) | DRG 811 ==
LOC: ED 11:20 → PCU 11:49
PROVIDERS: Surgery; Admitting Provider Internal Medicine; Emergency Provider Emergency Medicine; Family Provider Family Medicine; PCP Family Medicine; Visit Provider Internal Medicine
PROC: 0DJ08ZZ Inspection of Upper Intestinal Tract, Via Natural or Artificial Opening Endoscopic (ICD-10-PCS; CPT 43235; principal; 2018-06-20 12:00)
DX: D62 Acute posthemorrhagic anemia (principal); K26.4 Chronic or unspecified duodenal ulcer with hemorrhage; N17.0 Acute kidney failure with tubular necrosis; N18.4 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, stage 4 (severe); C85.90 Non-Hodgkin lymphoma, unspecified, unspecified site; N25.81 Secondary hyperparathyroidism of renal origin; I47.2 Ventricular tachycardia; I43 Cardiomyopathy in diseases classified elsewhere; I95.9 Hypotension, unspecified; I08.0 Rheumatic disorders of both mitral and aortic valves; I12.9 Hypertensive chronic kidney disease with stage 1 through stage 4 chronic kidney disease, or unspecified chronic kidney disease; I27.20 Pulmonary hypertension, unspecified; E78.5 Hyperlipidemia, unspecified; Z79.2 Long term (current) use of antibiotics; Z79.01 Long term (current) use of 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; Z79.82 Long term (current) use of aspirin; Z79.899 Other long term (current) drug therapy; Z87.11 Personal history of peptic ulcer disease; Z86.718 Personal history of other venous thrombosis and embolism; Z86.73 Personal history of transient ischemic attack (TIA), and cerebral infarction without residual deficits; Z95.2 Presence of prosthetic heart valve; Z95.0 Presence of cardiac pacemaker
CPT/HCPCS: 36415; 80048; 80069; 82274; 82607; 83970; 84436; 84443; 85014; 85018; 85025; 85610; 86677; 86850; 86900; 86920; 93005; 97802; 99283; J7030; J7120; P9016; A4216; J1940

== ENCOUNTER → 2018-06-26 10:15 | Outpatient (CLI) | payer MEDICARE, OTHER, SELFPAY ==
[2018-06-26 12:25] LABS: Absolute Lymphocyte Count 0.94 X10^3/ul (0.83-4.51); Absolute Neutrophil Count 3.9 X10^3/uL (2.0-7.7); Basophil# 0.03 X10^3/uL; Basophil% 0.5 % (0-1); Eosinophil# 0.28 X10^3/uL; Hematocrit 28.3 % (40-54); Hemoglobin 8.6 g/dl (13.0-16.5); Lymphocyte # 0.94 X10^3/ul (4.0); Lymphocyte % 16.7 % (19-41); Mean Corp Hgb Conc 30.4 g/gl (32-36); Mean Corpuscular Hgb 30.6 pg (27.0-32.0); Mean Corpuscular Volume 100.7 fL (80-94); Mean Platelet Vol. 10.6 fl (6.2-12.0); Monocyte# 0.45 X10^3/uL; Neutrophil # 3.94 X10^3/uL (2.7-7.7); Neutrophil % 69.8 % (47-70); Platelet Count 147 K/mm3 (150-450); RBC Distribution Width CV 15.8 % (11.6-14.6); RBC Distribution Width SD 57.9 fl (35.1-43.9); Red Blood Count 2.81 M/mm3 (4.6-6.2); White Blood Count 5.6 K/mm3 (4.4-11.0)
[2018-06-26 12:28] LABS: POSITIVE COUNT NO; POSITIVE DIFFERENTIAL NO; POSITIVE MORPHOLOGY NO
== END ==
PROVIDERS: Family Provider Family Medicine; PCP Family Medicine; Visit Provider Internal Medicine Nephrology
DX: D50.9 Iron deficiency anemia, unspecified (principal); N17.9 Acute kidney failure, unspecified; N25.81 Secondary hyperparathyroidism of renal origin
CPT/HCPCS: 36415; 85025

== ENCOUNTER → 2018-07-04 11:56 | Outpatient (CLI) | payer MEDICARE, OTHER, SELFPAY ==
[2018-07-04 15:37] LABS: Absolute Lymphocyte Count 1.16 X10^3/ul (0.83-4.51); Absolute Neutrophil Count 4.3 X10^3/uL (2.0-7.7); Basophil# 0.04 X10^3/uL; Basophil% 0.6 % (0-1); Eosinophils% 4.5 % (0-5); Hematocrit 25.2 % (40-54); Hemoglobin 7.9 g/dl (13.0-16.5); Lymphocyte # 1.16 X10^3/ul (4.0); Lymphocyte % 17.6 % (19-41); Mean Corp Hgb Conc 31.3 g/gl (32-36); Mean Corpuscular Hgb 32.1 pg (27.0-32.0); Mean Corpuscular Volume 102.4 fL (80-94); Mean Platelet Vol. 10.8 fl (6.2-12.0); Monocyte# 0.75 X10^3/uL; Monocyte% 11.4 % (0-10); Neutrophil # 4.34 X10^3/uL (2.7-7.7); Neutrophil % 65.7 % (47-70); Platelet Count 166 K/mm3 (150-450); Red Blood Count 2.46 M/mm3 (4.6-6.2); White Blood Count 6.6 K/mm3 (4.4-11.0)
[2018-07-04 15:46] LABS: POSITIVE COUNT NO; POSITIVE DIFFERENTIAL NO; POSITIVE MORPHOLOGY NO
[2018-07-04 16:07] LABS: International Normalized Ratio 2.9; Prothrombin Time (Protime)PT. 30.8 SECONDS (11.7-14.9)
== END ==
PROVIDERS: Family Provider Family Medicine; PCP Family Medicine; Visit Provider Internal Medicine Cardiovascular Disease
DX: D64.9 Anemia, unspecified (principal); Z79.01 Long term (current) use of 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
CPT/HCPCS: 36415; 85025; 85610

== ENCOUNTER 2018-07-05 09:48 | Emergency (ER) | payer MEDICARE, OTHER, SELFPAY ==
[2018-07-05 09:48] VITALS: BP 118/57; PULSE 74; RESP 18; TEMP 36.6; O2SAT 99; BMI 29.7
[2018-07-05 10:19] VITALS: BP 120/55; BP 132/54; BP 138/92; PULSE 70; PULSE 71
--- NOTE | 2018-07-05 10:21 | ED.VISSUMM ---
- ER Visit Summary Date of Service: 07/05/18 Chief Complaint: Acute on chronic anemia History of Present Illness: The patient is a 68 M known history of prior GI bleed. Had upper endoscopy done by Dr. Yelitza Russo 2 weeks ago. At that time he had a healing gastric ulcer which they did not need to do any procedures on. They are going to watch it. He is currently on Protonix. He is also on iron for anemia and GI bleed. Patient has had a history of lymphoma. He is anticoagulated on Coumadin secondary to an aortic mechanical valve. Lesions in the past. Recent black or bloody stools the last several days. Says otherwise she looks better than it did 2 weeks ago. He is actually been feeling well and was cutting grass the other day. He had outpatient labs done and showed a low hemoglobin and he was sent to the ER. Physical Examination: Well-appearing older male. Vital signs are stable afebrile. No distress. H EENT exam unremarkable. Neck. Lungs clear to auscultation bilaterally. Heart regular rhythm. He does have an aortic valve clinic in 3/6 murmur. Abdomen is soft and nontender. Normal bowel sounds no peritoneal signs. He has old surgical scars on his abdomen from prior surgeries. He is moving all 4 extremities. No edema. Neurologically is awake and alert without focal deficits. Test Results: CBC showed a hemoglobin 8.0. Previously was 8.6 then dropped to 7.9 yesterday and today is 8.0. Electrolytes unremarkable. Chronic renal insufficiency BUN of 54 which is his baseline. Creatinine of 3.1. He is on Coumadin INR of 3.0. Emergency Department Course and Treatment: Patient has a low hemoglobin and concern is could he have recurrent bleeding. Treatment Plan: Repeat exam patient is doing well. I spoke to Dr. Yelitza Russo of general surgery. She sculpted within the last several weeks. She wants him to continue his PPI will follow him up as an outpatient. She will do repeat endoscopy in the near future. Disposition: [] Impression: Acute on chronic anemia Anticoagulated on Coumadin History of mechanical heart valve History of prior gastric ulcer and GI bleeds. This note was generated with [employer] software. It may contain incorrect words, spelling, and punctuation that were not noted in review of the chart prior to signing ED Disposition - Plan for ED Patient: Chief Complaint: Abn Labs Referrals: Vinny Atkinson MD [Primary Care Provider] -
[2018-07-05 10:43] LABS: Hematocrit 26.5 % (40-54); Mean Corp Hgb Conc 30.2 g/gl (32-36); Mean Corpuscular Hgb 31.1 pg (27.0-32.0); Mean Corpuscular Volume 103.1 fL (80-94); Platelet Count 186 K/mm3 (150-450); RBC Distribution Width CV 15.9 % (11.6-14.6); RBC Distribution Width SD 60.3 fl (35.1-43.9); Red Blood Count 2.57 M/mm3 (4.6-6.2)
[2018-07-05 10:45] LABS: Prothrombin Time (Protime)PT. 31.4 SECONDS (11.7-14.9)
[2018-07-05 10:48] LABS: Scan Indicated on CBC? Y/N NO
[2018-07-05 10:52] LABS: Anion Gap 6 (5-15); BUN 54 mg/dL (7-18); BUN/Creat Ratio 17.3 RATIO (10-20); Calcium,Total 8.7 mg/dL (8.5-10.1); Chloride 110 mmol/L (98-107); Creatinine, Serum 3.12 mg/dL (0.70-1.30); EST Glomerular Filtration Rate 21 mL/min (>60); Est Glom Filt Rate - Afr Amer 26 mL/min (>60); Estimated Creatinine Clearance 20.89 ml/min; Glucose 111 mg/dL (74-106); Potassium 4.5 mmol/L (3.5-5.1); Sodium Level 144 mmol/L (136-145)
--- NOTE | 2018-07-05 11:40 | ED.DEP ---
ED Disposition - Plan for ED Patient: Disposition: Home or Assisted Living Chief Complaint: Abn Labs Referrals: Vinny Atkinson MD [Primary Care Provider] - As Needed Yelitza Russo MD [STAFF PHYSICIAN] - 1-2 Weeks Additional Instructions: Continue on your Protonix. Call follow-up with Dr. Russo as scheduled. Return if feeling worse, vomiting blood or black stool. Continue on your current medications.
[2018-07-05 12:11] VITALS: BP 128/58; PULSE 70; RESP 14; O2SAT 98
== END 2018-07-05 12:12 | disposition home or self-care (01) ==
PROVIDERS: Emergency Provider Emergency Medicine; Family Provider Family Medicine; PCP Family Medicine
DX: I13.0 Hypertensive heart and chronic kidney disease with heart failure and stage 1 through stage 4 chronic kidney disease, or unspecified chronic kidney disease (principal); N18.9 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, unspecified; I50.9 Heart failure, unspecified; D64.9 Anemia, unspecified; Z79.82 Long term (current) use of aspirin; Z79.01 Long term (current) use of 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; Z79.899 Other long term (current) drug therapy; Z85.72 Personal history of non-Hodgkin lymphomas; Z87.11 Personal history of peptic ulcer disease; Z87.19 Personal history of other diseases of the digestive system; Z95.2 Presence of prosthetic heart valve
CPT/HCPCS: 80048; 85027; 85610; 99284; A4216

== ENCOUNTER → 2018-07-10 14:55 | Outpatient (CLI) | payer MEDICARE, OTHER, SELFPAY ==
[2018-07-10 15:42] LABS: Absolute Lymphocyte Count 1.04 X10^3/ul (0.83-4.51); Absolute Neutrophil Count 3.7 X10^3/uL (2.0-7.7); Basophil# 0.04 X10^3/uL; Basophil% 0.7 % (0-1); Eosinophil# 0.27 X10^3/uL; Eosinophils% 4.7 % (0-5); Hematocrit 24.8 % (40-54); Hemoglobin 7.8 g/dl (13.0-16.5); Lymphocyte # 1.04 X10^3/ul (4.0); Lymphocyte % 18.2 % (19-41); Mean Corp Hgb Conc 31.5 g/gl (32-36); Mean Corpuscular Hgb 32.4 pg (27.0-32.0); Mean Corpuscular Volume 102.9 fL (80-94); Mean Platelet Vol. 9.2 fl (6.2-12.0); Monocyte# 0.61 X10^3/uL; Monocyte% 10.7 % (0-10); Neutrophil # 3.73 X10^3/uL (2.7-7.7); Neutrophil % 65.3 % (47-70); Platelet Count 170 K/mm3 (150-450); RBC Distribution Width CV 16.1 % (11.6-14.6); RBC Distribution Width SD 60.4 fl (35.1-43.9); Red Blood Count 2.41 M/mm3 (4.6-6.2); White Blood Count 5.7 K/mm3 (4.4-11.0)
[2018-07-10 15:43] LABS: POSITIVE COUNT NO; POSITIVE DIFFERENTIAL NO; POSITIVE MORPHOLOGY NO
== END ==
PROVIDERS: Visit Provider Family Medicine
DX: K26.0 Acute duodenal ulcer with hemorrhage (principal); D64.9 Anemia, unspecified
CPT/HCPCS: 36415; 85025

== ENCOUNTER → 2018-07-15 11:33 | Outpatient (CLI) | payer MEDICARE, OTHER, SELFPAY ==
[2018-07-15 15:32] LABS: Absolute Lymphocyte Count 0.93 X10^3/ul (0.83-4.51); Absolute Neutrophil Count 4.4 X10^3/uL (2.0-7.7); Basophil# 0.03 X10^3/uL; Basophil% 0.5 % (0-1); Eosinophil# 0.29 X10^3/uL; Eosinophils% 4.7 % (0-5); Hematocrit 25.1 % (40-54); Hemoglobin 7.6 g/dl (13.0-16.5); Lymphocyte # 0.93 X10^3/ul (4.0); Mean Corp Hgb Conc 30.3 g/gl (32-36); Mean Corpuscular Hgb 31.7 pg (27.0-32.0); Mean Corpuscular Volume 104.6 fL (80-94); Mean Platelet Vol. 9.7 fl (6.2-12.0); Monocyte# 0.53 X10^3/uL; Monocyte% 8.6 % (0-10); Neutrophil # 4.39 X10^3/uL (2.7-7.7); Platelet Count 180 K/mm3 (150-450); RBC Distribution Width CV 15.9 % (11.6-14.6); RBC Distribution Width SD 60.5 fl (35.1-43.9); White Blood Count 6.2 K/mm3 (4.4-11.0)
[2018-07-15 15:48] LABS: POSITIVE COUNT NO; POSITIVE DIFFERENTIAL NO; POSITIVE MORPHOLOGY NO
== END ==
PROVIDERS: Family Provider Family Medicine; PCP Family Medicine; Visit Provider Family Medicine
DX: D50.9 Iron deficiency anemia, unspecified (principal); K26.0 Acute duodenal ulcer with hemorrhage
CPT/HCPCS: 85025

== ENCOUNTER → 2018-07-23 11:29 | Outpatient (CLI) | payer MEDICARE, OTHER, SELFPAY ==
[2018-07-23 15:43] LABS: Absolute Neutrophil Count 5.8 X10^3/uL (2.0-7.7); Basophil# 0.05 X10^3/uL; Basophil% 0.7 % (0-1); Eosinophil# 0.32 X10^3/uL; Eosinophils% 4.3 % (0-5); Hematocrit 30.2 % (40-54); Hemoglobin 9.4 g/dl (13.0-16.5); Lymphocyte % 10.6 % (19-41); Mean Corp Hgb Conc 31.1 g/gl (32-36); Mean Corpuscular Hgb 32.2 pg (27.0-32.0); Mean Corpuscular Volume 103.4 fL (80-94); Mean Platelet Vol. 10.2 fl (6.2-12.0); Monocyte# 0.57 X10^3/uL; Monocyte% 7.6 % (0-10); Neutrophil # 5.78 X10^3/uL (2.7-7.7); Neutrophil % 76.8 % (47-70); POSITIVE COUNT NO; POSITIVE DIFFERENTIAL NO; POSITIVE MORPHOLOGY NO; Platelet Count 143 K/mm3 (150-450); RBC Distribution Width CV 15.9 % (11.6-14.6); RBC Distribution Width SD 59.1 fl (35.1-43.9); Red Blood Count 2.92 M/mm3 (4.6-6.2); White Blood Count 7.5 K/mm3 (4.4-11.0)
[2018-07-23 15:52] LABS: International Normalized Ratio 3.3
== END ==
PROVIDERS: Family Provider Family Medicine; PCP Family Medicine; Visit Provider Internal Medicine Cardiovascular Disease
DX: K26.0 Acute duodenal ulcer with hemorrhage (principal); D64.9 Anemia, unspecified; Z79.01 Long term (current) use of 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
CPT/HCPCS: 36415; 85025; 85610

== ENCOUNTER → 2018-07-30 10:16 | Outpatient (CLI) | payer MEDICARE, OTHER, SELFPAY ==
[2018-07-30 11:51] LABS: Absolute Neutrophil Count 4.5 X10^3/uL (2.0-7.7); Basophil# 0.05 X10^3/uL; Basophil% 0.8 % (0-1); Eosinophil# 0.35 X10^3/uL; Eosinophils% 5.4 % (0-5); Hematocrit 26.3 % (40-54); Hemoglobin 8.2 g/dl (13.0-16.5); Lymphocyte % 16.9 % (19-41); Mean Corp Hgb Conc 31.2 g/gl (32-36); Mean Corpuscular Hgb 31.8 pg (27.0-32.0); Mean Corpuscular Volume 101.9 fL (80-94); Mean Platelet Vol. 9.8 fl (6.2-12.0); Monocyte# 0.55 X10^3/uL; Monocyte% 8.4 % (0-10); Neutrophil # 4.45 X10^3/uL (2.7-7.7); Neutrophil % 68.3 % (47-70); Platelet Count 179 K/mm3 (150-450); RBC Distribution Width SD 58.5 fl (35.1-43.9); Red Blood Count 2.58 M/mm3 (4.6-6.2); White Blood Count 6.5 K/mm3 (4.4-11.0)
[2018-07-30 11:52] LABS: POSITIVE COUNT NO; POSITIVE DIFFERENTIAL NO; POSITIVE MORPHOLOGY NO
[2018-07-30 12:12] LABS: Anion Gap 10 (5-15); BUN 65 mg/dL (7-18); BUN/Creat Ratio 22.9 RATIO (10-20); Calcium,Total 8.9 mg/dL (8.5-10.1); Chloride 107 mmol/L (98-107); Creatinine, Serum 2.84 mg/dL (0.70-1.30); EST Glomerular Filtration Rate 24 mL/min (>60); Est Glom Filt Rate - Afr Amer 29 mL/min (>60); Glucose 129 mg/dL (74-106); Potassium 4.5 mmol/L (3.5-5.1); Sodium Level 143 mmol/L (136-145)
== END ==
PROVIDERS: Internal Medicine Cardiovascular Disease; Family Provider Family Medicine; PCP Family Medicine; Visit Provider Family Medicine
DX: K26.0 Acute duodenal ulcer with hemorrhage (principal); D64.9 Anemia, unspecified; I47.2 Ventricular tachycardia; I48.92 Unspecified atrial flutter; N18.3 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, stage 3 (moderate); Z79.899 Other long term (current) drug therapy
CPT/HCPCS: 36415; 80048; 85025

== ENCOUNTER 2018-08-30 09:53 | Outpatient (RCR) | payer MEDICARE, OTHER, SELFPAY ==
[2018-08-30 10:35] LABS: International Normalized Ratio 2.6
== END 2018-09-18 23:59 ==
LOC: PAVLAB 09:53
PROVIDERS: Family Provider Family Medicine; PCP Family Medicine; Visit Provider Internal Medicine Cardiovascular Disease
DX: Z79.01 Long term (current) use of 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 (principal)
CPT/HCPCS: 36415; 85610

== ENCOUNTER 2018-09-05 09:31 | Day surgery (SDC) | payer MEDICARE, OTHER, SELFPAY ==
[2018-09-05 09:54] VITALS: BP 110/42; PULSE 70; RESP 16; TEMP 36.5; O2SAT 100; BMI 30.7
--- NOTE | 2018-09-05 10:51 | PCM.OPRPT ---
Report of Operation Date of Procedure: 09/05/18 Pre-Operative Diagnosis: anemia, history of peptic ulcer Post-Operative Diagnosis: same Surgery/Procedure Performed:: esophagogastroduodenoscopy Description of Surgical Findings:: no ulcers or masses noted Type of Anesthesia:: MAC Anesthesiologist: Jas Prieto Specimen's removed: none Estimated Blood Loss (mL): none Fluids Replaced: see anesthesia noted Description of Procedure: After informed consent was given, the patient was brought to the endoscopy suite. Appropriate time out protocol was followed. Appropriate cardiac, blood pressure, and pulse oximetry monitoring was placed. After stable vital signs were noted, the patient was given intravenous conscious sedation. The posterior pharynx was sprayed with lidocaine spray times two and a bite block was placed. The patient was then placed in the left lateral decubitis position. The upper endoscope was lubricated and inserted into the patient?s mouth and then carefully placed into the patient?s throat. The patient was asked to swallow and the endoscope was then easily advanced into the patient?s esophagus. The endoscope was further advanced down into the patient?s stomach, then past the pylorus, then past the duodenal bulb and then to the second portion of the duodenum. There were no lesions noted in the duodenum. The endoscope was then retracted back into the stomach. Careful examination of the pyloric channel area was done - no ulcers were noted. A retroflex view of the stomach revealed no evidence of any masses. No ulcers, no strictures, no suspicious lesions were noted. There was not evidence of bleeding throughout. The endoscope was retracted into the esophagus. The gastroesophageal junction appeared normal. The remainder of the esophagus was normal. The upper endoscope was removed intact. Patient tolerated procedure well. - Complications none noted
[2018-09-05 10:52] VITALS: BP 110/42; BP 99/58; PULSE 70; RESP 16; TEMP 36.6; O2SAT 99
[2018-09-05 10:57] VITALS: BP 105/54; BP 110/42; PULSE 70; RESP 16; O2SAT 99
[2018-09-05 11:02] VITALS: BP 110/42; BP 112/55; PULSE 70; RESP 16; O2SAT 99
[2018-09-05 11:07] VITALS: BP 110/42; PULSE 71; RESP 16; TEMP 36.6; O2SAT 100
--- NOTE | 2018-09-05 11:10 | OP.ENDO_ITS ---
Patient Name: Ravindra Amador Procedure Date: 09/05/2018 10:22 AM Date of : 1950 Age: 68 Procedure: Upper GI endoscopy Indications: Iron deficiency anemia, Peptic ulcer Providers: Yelitza Russo MD Medicines: See the Anesthesia note for documentation of the administered medications Patient Profile: Refer to note in patient chart for documentation of history and physical. Complications: No immediate complications. Procedure: Pre-Anesthesia Assessment: - Prior to the procedure, a History and Physical was performed, and patient medications and allergies were reviewed. The patient is competent. The risks and benefits of the procedure and the sedation options and risks were discussed with the patient. All questions were answered and informed consent was obtained. Patient identification and proposed procedure were verified by the physician in the pre-procedure area. Mental Status Examination: alert and oriented. Airway Examination: normal oropharyngeal airway and neck mobility. Respiratory Examination: clear to auscultation. CV Examination: normal. Prophylactic Antibiotics: The patient does not require prophylactic antibiotics. Prior Anticoagulants: The patient has taken no previous anticoagulant or antiplatelet agents. ASA Grade Assessment: II - A patient with mild systemic disease. After reviewing the risks and benefits, the patient was deemed in satisfactory condition to undergo the procedure. The anesthesia plan was to use monitored anesthesia care (MAC). Immediately prior to administration of medications, the patient was re-assessed for adequacy to receive sedatives. The heart rate, respiratory rate, oxygen saturations, blood pressure, adequacy of pulmonary ventilation, and response to care were monitored throughout the procedure. The physical status of the patient was re-assessed after the procedure. After obtaining informed consent, the endoscope was passed under direct vision. Throughout the procedure, the patient's blood pressure, pulse, and oxygen saturations were monitored continuously. The gastroscope was introduced through the mouth, and advanced to the second part of duodenum. The upper GI endoscopy was accomplished without difficulty. The patient tolerated the procedure well. Scope In: 10:39:43 AM Scope Out: 10:46:46 AM Total Procedure Duration Time 0 hours 7 minutes 3 seconds Findings: The examined esophagus was normal. Suspect gastroparesis due to retained gastric contents. No ulcer seen in stomach or duodenal bulb as previous The first portion of the duodenum and second portion of the duodenum were normal. Impression: - Normal esophagus. - Gastroparesis. - Normal first portion of the duodenum and second portion of the duodenum. - No specimens collected. Recommendation: - Discharge patient to home (ambulatory). - Resume previous diet. - Continue present medications. - The findings and recommendations were discussed with the patient's family. Procedure Code(s): --- Professional --- 13826, Esophagogastroduodenoscopy, flexible, transoral; diagnostic, including collection of specimen(s) by brushing or washing, when performed (separate procedure) Diagnosis Code(s): --- Professional --- K31.84, Gastroparesis D50.9, Iron deficiency anemia, unspecified K27.9, Peptic ulcer, site unspecified, unspecified as acute or chronic, without hemorrhage or perforation CPT copyright 2017 [employer]. All rights reserved. The codes documented in this report are preliminary and upon lobby porter review may be revised to meet current compliance requirements. MD Yelitza Boothe MD 09/05/2018 11:10:41 AM This report has been signed electronically. Number of Addenda: 0 Note Initiated On: 09/05/2018 10:22 AM
[2018-09-05 11:25] VITALS: BP 110/42
== END 2018-09-05 11:40 | disposition home or self-care (01) ==
LOC: EN 09:31 → AC 09:32
PROVIDERS: Family Provider Family Medicine; PCP Family Medicine; Referring Provider Surgery; Visit Provider Surgery
PROC: 0DJ08ZZ Inspection of Upper Intestinal Tract, Via Natural or Artificial Opening Endoscopic (ICD-10-PCS; CPT 43235; principal; 2018-09-05 10:25)
DX: K27.9 Peptic ulcer, site unspecified, unspecified as acute or chronic, without hemorrhage or perforation (principal); K31.84 Gastroparesis; D50.9 Iron deficiency anemia, unspecified; I12.9 Hypertensive chronic kidney disease with stage 1 through stage 4 chronic kidney disease, or unspecified chronic kidney disease; N18.3 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, stage 3 (moderate); E78.5 Hyperlipidemia, unspecified; G47.33 Obstructive sleep apnea (adult) (pediatric); K21.9 Gastro-esophageal reflux disease without esophagitis; Z79.01 Long term (current) use of 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; Z79.82 Long term (current) use of aspirin; Z79.899 Other long term (current) drug therapy; Z87.11 Personal history of peptic ulcer disease; Z85.72 Personal history of non-Hodgkin lymphomas; Z87.19 Personal history of other diseases of the digestive system; Z86.718 Personal history of other venous thrombosis and embolism; Z86.73 Personal history of transient ischemic attack (TIA), and cerebral infarction without residual deficits; Z95.0 Presence of cardiac pacemaker; Z95.2 Presence of prosthetic heart valve
CPT/HCPCS: 43235; J7120

== ENCOUNTER 2018-09-18 09:56 | Day surgery (SDC) | payer MEDICARE, OTHER, SELFPAY ==
[2018-09-18] VITALS (7 sets, daily range): BP systolic 95–136; BP diastolic 48–57; PULSE 70–78; RESP 18; TEMP 36.1–37.1; O2SAT 95–100; BMI 30.5
--- NOTE | 2018-09-18 11:00 | COLBX_PTH ---
PATIENT: CHRISTIAN RICHMOND LOC: EN U#:[id number] AGE/SX: 68/M ROOM: RE09/18/[address]: Dr. Yelitza Russo MD : 1950 BED: DIS: 09/18/2018 SPEC #: [id number] RECD: 09/18/18 11:47 STATUS: FRANCISCO PATTERSON #: [id number] JESSICA: 09/18/18 11:[address]: Yelitza Russo DEPT: SURGICAL PATHOLOGY RECD BY: Soto Nelson ENTERED: 09/18/18 12:38 SP TYPE: COLON BX OTHR DR: Dr. Vinny Atkinson MD Tissues: Right colon Procedures: Surgery Specimen Level IV HEADER OPERATION: Colonoscopy (MAC) PRE-OP DIAGNOSIS: Melena and occult positive stools TISSUE SUBMITTED: Biopsies of right colon MICROSCOPIC DIAGNOSIS Right colon, biopsy: Focal mucosal hemorrhage. No evidence of malignancy. No evidence of colitis. AM:nellie 11/1/18 COMMENT Clinical correlation is suggested. MICROSCOPIC DESCRIPTION Slides are reviewed. GROSS DESCRIPTION Received in fixative is one container labeled with the patient's name and designated biopsy of right colon. The specimen consists of two irregular fragments of light gayle soft tissue that in aggregate measure 0.5 x 0.2 x 0.1 cm. The specimen is totally submitted in one cassette. / SJ:rg 09/18/18 TC:5 CPT: 33364
--- NOTE | 2018-09-18 11:39 | OP.ENDO_ITS ---
Patient Name: Ravindra Amador Procedure Date: 09/18/2018 10:44 AM Date of : 1950 Age: 68 Procedure: Colonoscopy Indications: Rectal bleeding, Iron deficiency anemia Providers: Yelitza Russo MD Medicines: See the Anesthesia note for documentation of the administered medications Patient Profile: Refer to note in patient chart for documentation of history and physical. Last Colonoscopy: several years ago. Complications: No immediate complications. Procedure: Pre-Anesthesia Assessment: - Prior to the procedure, a History and Physical was performed, and patient medications and allergies were reviewed. The patient is competent. The risks and benefits of the procedure and the sedation options and risks were discussed with the patient. All questions were answered and informed consent was obtained. Patient identification and proposed procedure were verified by the physician in the pre-procedure area. Mental Status Examination: alert and oriented. Airway Examination: normal oropharyngeal airway and neck mobility. Respiratory Examination: clear to auscultation. CV Examination: normal. Prophylactic Antibiotics: The patient does not require prophylactic antibiotics. Prior Anticoagulants: The patient has taken Coumadin (warfarin), last dose was 1 day prior to procedure. ASA Grade Assessment: III - A patient with severe systemic disease. After reviewing the risks and benefits, the patient was deemed in satisfactory condition to undergo the procedure. The anesthesia plan was to use monitored anesthesia care (MAC). Immediately prior to administration of medications, the patient was re-assessed for adequacy to receive sedatives. The heart rate, respiratory rate, oxygen saturations, blood pressure, adequacy of pulmonary ventilation, and response to care were monitored throughout the procedure. The physical status of the patient was re-assessed after the procedure. After I obtained informed consent, the scope was passed under direct vision. Throughout the procedure, the patient's blood pressure, pulse, and oxygen saturations were monitored continuously. The Colonoscope was introduced through the anus and advanced to the cecum, identified by the appendiceal orifice, IC valve and transillumination. The colonoscopy was performed without difficulty. The patient tolerated the procedure well. The quality of the bowel preparation was fair, lesions less than 2-3 cm may be missed. Scope In: 11:07:42 AM Scope Withdrawal Time 0 hours 13 minutes 45 seconds Scope Out: 11:32:07 AM Total Procedure Duration Time 0 hours 24 minutes 25 seconds Findings: The perianal and digital rectal examinations were normal. A diffuse area of severely friable mucosa with contact bleeding was found in the ascending colon. This was biopsied with a cold forceps for histology. Estimated blood loss was minimal. Non-bleeding internal hemorrhoids were found. Multiple small and large-mouthed diverticula were found in the sigmoid colon. Impression: - Preparation of the colon was fair. - Friability with contact bleeding in the ascending colon. Biopsied. - Non-bleeding internal hemorrhoids. - Diverticulosis in the sigmoid colon. Recommendation: - Discharge patient to home (ambulatory). - Resume previous diet. - Continue present medications. - Await pathology results. - Repeat colonoscopy date to be determined after pending pathology results are reviewed for surveillance based on pathology results. - Return to my office in 1 week. Procedure Code(s): --- Professional --- 13834, Colonoscopy, flexible; with biopsy, single or multiple Diagnosis Code(s): --- Professional --- K64.8, Other hemorrhoids K92.2, Gastrointestinal hemorrhage, unspecified K62.5, Hemorrhage of anus and rectum D50.9, Iron deficiency anemia, unspecified K57.30, Diverticulosis of large intestine without perforation or abscess without bleeding CPT copyright 2017 [employer]. All rights reserved. The codes documented in this report are preliminary and upon fig washer review may be revised to meet current compliance requirements. MD Yelitza Boothe MD 09/18/2018 11:38:53 AM This report has been signed electronically. Number of Addenda: 0 Note Initiated On: 09/18/2018 10:44 AM
== END 2018-09-18 12:30 | disposition home or self-care (01) ==
LOC: EN 09:57 → AC 09:58
PROVIDERS: Family Provider Family Medicine; PCP Family Medicine; Referring Provider Surgery; Visit Provider Surgery
PROC: 0DJD8ZZ Inspection of Lower Intestinal Tract, Via Natural or Artificial Opening Endoscopic (ICD-10-PCS; CPT 45378; principal; 2018-09-18 10:55)
DX: K62.5 Hemorrhage of anus and rectum (principal); K57.30 Diverticulosis of large intestine without perforation or abscess without bleeding; K64.8 Other hemorrhoids; D50.9 Iron deficiency anemia, unspecified; I12.9 Hypertensive chronic kidney disease with stage 1 through stage 4 chronic kidney disease, or unspecified chronic kidney disease; N18.3 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, stage 3 (moderate); E78.5 Hyperlipidemia, unspecified; G47.33 Obstructive sleep apnea (adult) (pediatric); K21.9 Gastro-esophageal reflux disease without esophagitis; Z79.01 Long term (current) use of 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; Z79.82 Long term (current) use of aspirin; Z79.899 Other long term (current) drug therapy; Z95.2 Presence of prosthetic heart valve; Z86.73 Personal history of transient ischemic attack (TIA), and cerebral infarction without residual deficits; Z86.718 Personal history of other venous thrombosis and embolism; Z85.72 Personal history of non-Hodgkin lymphomas; Z95.0 Presence of cardiac pacemaker
CPT/HCPCS: 45380; 88305; J7120

== ENCOUNTER → 2018-11-14 14:06 | Outpatient (CLI) | payer MEDICARE, OTHER, SELFPAY ==
[2018-11-06 13:48] VITALS: BMI 31.3
[2018-11-14 15:36] LABS: Hematocrit 35.9 % (40-54); Hemoglobin 11.4 g/dl (13.0-16.5); Mean Corp Hgb Conc 31.8 g/gl (32-36); Mean Corpuscular Hgb 32.1 pg (27.0-32.0); Mean Corpuscular Volume 101.1 fL (80-94); Mean Platelet Vol. 11.3 fl (6.2-12.0); Platelet Count 121 K/mm3 (150-450); RBC Distribution Width SD 55.3 fl (35.1-43.9); Red Blood Count 3.55 M/mm3 (4.6-6.2); White Blood Count 6.1 K/mm3 (4.4-11.0)
[2018-11-14 15:47] LABS: Scan Indicated on CBC? Y/N NO
[2018-11-14 15:50] LABS: Albumin, Serum 4.2 g/dL (3.2-5.0); BUN 61 mg/dL (7-18); BUN/Creat Ratio 21.7 RATIO (10-20); Chloride 107 mmol/L (98-107); Creatinine, Serum 2.81 mg/dL (0.70-1.30); EST Glomerular Filtration Rate 24 mL/min (>60); Est Glom Filt Rate - Afr Amer 29 mL/min (>60); Glucose 98 mg/dL (74-106); Phosphorus 3.9 mg/dL (2.5-4.9); Potassium 4.4 mmol/L (3.5-5.1); Sodium Level 141 mmol/L (136-145)
[2018-11-14 16:05] LABS: PTHIN 124.5 pg/mL (18.4-80.1)
== END ==
PROVIDERS: Family Provider Family Medicine; PCP Family Medicine; Visit Provider Internal Medicine Nephrology
DX: N18.3 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, stage 3 (moderate) (principal); N25.81 Secondary hyperparathyroidism of renal origin; K92.2 Gastrointestinal hemorrhage, unspecified
CPT/HCPCS: 36415; 80069; 83970; 85027

== ENCOUNTER 2018-12-10 13:55 | Outpatient (RCR) | payer MEDICARE, OTHER, SELFPAY ==
[2018-11-06 13:48] VITALS: BMI 31.3
[2018-11-27 12:09] LABS: Absolute Lymphocyte Count 1.22 X10^3/ul (0.83-4.51); Absolute Neutrophil Count 4.6 X10^3/uL (2.0-7.7); Basophil# 0.04 X10^3/uL; Basophil% 0.6 % (0-1); Eosinophil# 0.34 X10^3/uL; Hematocrit 35.3 % (40-54); Hemoglobin 11.2 g/dl (13.0-16.5); Lymphocyte # 1.22 X10^3/ul (4.0); Lymphocyte % 17.8 % (19-41); Mean Corp Hgb Conc 31.7 g/gl (32-36); Mean Corpuscular Hgb 31.6 pg (27.0-32.0); Mean Corpuscular Volume 99.7 fL (80-94); Mean Platelet Vol. 12.3 fl (6.2-12.0); Monocyte# 0.67 X10^3/uL; Monocyte% 9.8 % (0-10); Neutrophil # 4.57 X10^3/uL (2.7-7.7); Neutrophil % 66.5 % (47-70); Platelet Count 119 K/mm3 (150-450); RBC Distribution Width CV 14.5 % (11.6-14.6); RBC Distribution Width SD 53.5 fl (35.1-43.9); Red Blood Count 3.54 M/mm3 (4.6-6.2); White Blood Count 6.9 K/mm3 (4.4-11.0)
[2018-11-27 12:13] LABS: POSITIVE COUNT NO; POSITIVE DIFFERENTIAL NO; POSITIVE MORPHOLOGY NO
[2018-11-27 12:21] LABS: International Normalized Ratio 2.4; Prothrombin Time (Protime)PT. 26.2 SECONDS (11.7-14.9)
[2018-11-27 12:28] LABS: Albumin, Serum 3.8 g/dL (3.2-5.0); BUN 57 mg/dL (7-18); BUN/Creat Ratio 20.5 RATIO (10-20); Calcium,Total 8.7 mg/dL (8.5-10.1); Chloride 106 mmol/L (98-107); Creatinine, Serum 2.78 mg/dL (0.70-1.30); EST Glomerular Filtration Rate 24 mL/min (>60); Est Glom Filt Rate - Afr Amer 29 mL/min (>60); Glucose 148 mg/dL (74-106); Phosphorus 3.4 mg/dL (2.5-4.9); Potassium 4.8 mmol/L (3.5-5.1); Sodium Level 136 mmol/L (136-145)
[2018-11-27 23:14] LABS: PTHIN 96.8 pg/mL (18.4-80.1)
[2018-12-10 17:11] LABS: International Normalized Ratio 2.5; Prothrombin Time (Protime)PT. 27.3 SECONDS (11.7-14.9)
== END 2018-12-19 23:59 ==
LOC: BFHLAB 13:55
PROVIDERS: Internal Medicine Medical Oncology; Family Provider Family Medicine; PCP Family Medicine; Referring Provider Internal Medicine Nephrology; Visit Provider Internal Medicine Cardiovascular Disease
DX: N17.9 Acute kidney failure, unspecified (principal); N18.3 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, stage 3 (moderate); K92.2 Gastrointestinal hemorrhage, unspecified; N25.81 Secondary hyperparathyroidism of renal origin; Z79.01 Long term (current) use of 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; Z85.72 Personal history of non-Hodgkin lymphomas
CPT/HCPCS: 36415; 80069; 83970; 85025; 85610

== ENCOUNTER → 2019-01-31 09:19 | Outpatient (CLI) | payer MEDICARE, OTHER, SELFPAY ==
[2019-01-27 10:36] VITALS: BMI 31.4
[2019-01-31 12:39] LABS: Hematocrit 34.7 % (40-54); Mean Corp Hgb Conc 31.7 g/gl (32-36); Mean Corpuscular Hgb 31.9 pg (27.0-32.0); Mean Corpuscular Volume 100.6 fL (80-94); Mean Platelet Vol. 10.9 fl (6.2-12.0); Platelet Count 107 K/mm3 (150-450); RBC Distribution Width CV 15.8 % (11.6-14.6); RBC Distribution Width SD 56.3 fl (35.1-43.9); Red Blood Count 3.45 M/mm3 (4.6-6.2); White Blood Count 6.1 K/mm3 (4.4-11.0)
[2019-01-31 12:42] LABS: Scan Indicated on CBC? Y/N NO
[2019-01-31 12:54] LABS: International Normalized Ratio 2.9; Prothrombin Time (Protime)PT. 30.4 SECONDS (11.7-14.9)
[2019-01-31 12:55] LABS: AST(SGOT) 45 U/L (15-37); Alanine Aminotransfer ALT/SGPT 34 U/L (16-61); Albumin, Serum 3.9 g/dL (3.2-5.0); Alkaline Phosphatase 131 U/L (45-117); Anion Gap 5 (5-15); BUN 53 mg/dL (7-18); BUN/Creat Ratio 19.8 RATIO (10-20); Bilirubin, Direct 0.33 mg/dL (0.00-0.30); Calcium,Total 8.8 mg/dL (8.5-10.1); Chloride 112 mmol/L (98-107); Cholesterol 196 mg/dL (200); Creatinine, Serum 2.68 mg/dL (0.70-1.30); EST Glomerular Filtration Rate 25 mL/min (>60); Est Glom Filt Rate - Afr Amer 31 mL/min (>60); Globulin 4.2 g/dL (2.2-4.2); Glucose 105 mg/dL (74-106); High Density Lipoprotein 31 mg/dL; Phosphorus 2.8 mg/dL (2.5-4.9); Potassium 4.5 mmol/L (3.5-5.1); Protein, Total 8.1 g/dL (6.4-8.2); Sodium Level 142 mmol/L (136-145); Triglycerides 213 mg/dL; Very Low Density Lipoprotein 43 mg/dL (5-40)
[2019-01-31 13:22] LABS: PTHIN 101.9 pg/mL (18.4-80.1)
== END ==
PROVIDERS: Family Provider Family Medicine; PCP Family Medicine; Referring Provider Physician Assistant Medical; Visit Provider Internal Medicine Nephrology
DX: E78.5 Hyperlipidemia, unspecified (principal); N17.9 Acute kidney failure, unspecified; N18.3 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, stage 3 (moderate); K92.2 Gastrointestinal hemorrhage, unspecified; N25.81 Secondary hyperparathyroidism of renal origin; Z79.899 Other long term (current) drug therapy
CPT/HCPCS: 36415; 80048; 80061; 80076; 83970; 84100; 85027; 85610

== ENCOUNTER 2019-04-09 11:49 | Outpatient (RCR) | payer MEDICARE, OTHER, SELFPAY ==
[2019-01-27 10:36] VITALS: BMI 31.4
[2019-04-09 12:45] LABS: Prothrombin Time (Protime)PT. 31.6 SECONDS (11.7-14.9)
== END 2019-04-18 23:59 ==
LOC: BFHLAB 11:49
PROVIDERS: Family Provider Family Medicine; PCP Family Medicine; Visit Provider Internal Medicine Cardiovascular Disease
DX: Z79.01 Long term (current) use of 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 (principal)
CPT/HCPCS: 36415; 85610

== ENCOUNTER → 2019-04-22 11:11 | Outpatient (CLI) | payer MEDICARE, OTHER, SELFPAY ==
[2019-04-18 08:29] VITALS: BMI 31.3
[2019-04-19 01:26] VITALS: BMI 31.4
--- NOTE | 2019-04-22 16:15 | STRESSREP ---
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 The baseline ECG demonstrated an electronic ventricular paced rhythm. The peak pharmacologic ECG demonstrated a continued electronic ventricular paced rhythm. There were no cardiac dysrhythmias pretest, during pharmacologic infusion, or recovery. There was no complaint of chest discomfort during pharmacologic infusion or recovery. The examination was discontinued secondary to completion of protocol. Impression: 1. Pharmacologic (Regadenoson) evaluation 2. Peak pharmacologic ECG with a continued electronic ventricular paced rhythm. 3. There were no cardiac dysrhythmias pretest, during pharmacologic infusion, or recovery. 4. Nuclear images pending Myocardial perfusion imaging study: Technique: The patient was injected with 14.2 millicuries of technetium 99m Cardiolite and subsequently rest SPECT Cardiolite nuclear imaging was obtained in the horizontal long, vertical long, and short axis views. The patient underwent pharmacologic (Regadenoson) evaluation with a peak heart rate of 74 beats per minute (49 % percent predicted maximal heart rate) and a peak blood pressure of 44/62 mmHg. The patient was injected with 44.6 millicuries of technetium 99m Cardiolite and subsequently stress SPECT Cardiolite nuclear imaging was obtained in the horizontal long, vertical long, and short axis views. A gated Cardiolite study at peak stress was obtained. Interpretation: Rest and stress SPECT Cardiolite nuclear imaging status post realignment, normalization, and attenuation correction demonstrate the appearance of left ventricular dilatation and otherwise relative uniform tracer uptake. There is end systolic thickening and brightening. The gated Cardiolite study demonstrates myocardial thickening and inward wall motion. The reported LVEF is 54 %. Impression: 1. Rest and stress SPECT currently nuclear imaging demonstrate the appearance of left ventricular dilatation and otherwise relative uniform tracer uptake with no myocardial perfusion changes considered diagnostic for associated stress-induced myocardial ischemia. 2. The gated Cardiolite study reports an LVEF of 54 %. This note was generated with [employer] software. It may contain incorrect words, spelling, and punctuation that were not noted in checking the note before signing.
--- NOTE | 2019-04-22 16:19 | STRESSREP_ITS ---
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 The baseline ECG demonstrated an electronic ventricular paced rhythm. The peak pharmacologic ECG demonstrated a continued electronic ventricular paced rhythm. There were no cardiac dysrhythmias pretest, during pharmacologic infusion, or recovery. There was no complaint of chest discomfort during pharmacologic infusion or recovery. The examination was discontinued secondary to completion of protocol. Impression: 1. Pharmacologic (Regadenoson) evaluation 2. Peak pharmacologic ECG with a continued electronic ventricular paced rhythm. 3. There were no cardiac dysrhythmias pretest, during pharmacologic infusion, or recovery. 4. Nuclear images pending Myocardial perfusion imaging study: Technique: The patient was injected with 14.2 millicuries of technetium 99m Cardiolite and subsequently rest SPECT Cardiolite nuclear imaging was obtained in the horizontal long, vertical long, and short axis views. The patient underwent pharmacologic (Regadenoson) evaluation with a peak heart rate of 74 beats per minute (49 % percent predicted maximal heart rate) and a peak blood pressure of 44/62 mmHg. The patient was injected with 44.6 millicuries of technetium 99m Cardiolite and subsequently stress SPECT Cardiolite nuclear imaging was obtained in the horizontal long, vertical long, and short axis views. A gated Cardiolite study at peak stress was obtained. Interpretation: Rest and stress SPECT Cardiolite nuclear imaging status post realignment, normalization, and attenuation correction demonstrate the appearance of left ventricular dilatation and otherwise relative uniform tracer uptake. There is end systolic thickening and brightening. The gated Cardiolite study demonstrates myocardial thickening and inward wall motion. The reported LVEF is 54 %. Impression: 1. Rest and stress SPECT currently nuclear imaging demonstrate the appearance of left ventricular dilatation and otherwise relative uniform tracer uptake with no myocardial perfusion changes considered diagnostic for associated stress- induced myocardial ischemia. 2. The gated Cardiolite study reports an LVEF of 54 %. This note was generated with [employer] software. It may contain incorrect words, spelling, and punctuation that were not noted in checking the note before signing.
== END ==
PROVIDERS: Family Provider Family Medicine; PCP Family Medicine; Referring Provider Nurse Practitioner Family; Visit Provider Nurse Practitioner Family
DX: R55 Syncope and collapse (principal); R06.02 Shortness of breath; R07.89 Other chest pain; I05.1 Rheumatic mitral insufficiency; I06.0 Rheumatic aortic stenosis; I10 Essential (primary) hypertension; I48.92 Unspecified atrial flutter; I42.9 Cardiomyopathy, unspecified; I38 Endocarditis, valve unspecified; R01.1 Cardiac murmur, unspecified; Z79.899 Other long term (current) drug therapy; Z98.890 Other specified postprocedural states; Z95.2 Presence of prosthetic heart valve; Z95.0 Presence of cardiac pacemaker
CPT/HCPCS: 78452; 93017; 93306; A9500; A4216; J2785

== ENCOUNTER → 2019-05-07 09:33 | Outpatient (CLI) | payer MEDICARE, OTHER, SELFPAY ==
[2019-05-07 09:32] VITALS: BMI 31.3
[2019-05-07 13:43] LABS: International Normalized Ratio 3.4; Prothrombin Time (Protime)PT. 34.6 SECONDS (11.7-14.9)
== END ==
PROVIDERS: Family Provider Family Medicine; PCP Family Medicine; Visit Provider Internal Medicine Cardiovascular Disease
DX: Z79.01 Long term (current) use of 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 (principal)
CPT/HCPCS: 36415; 85610

== ENCOUNTER → 2019-06-05 10:34 | Outpatient (CLI) | payer MEDICARE, OTHER, SELFPAY ==
[2019-05-29 09:57] VITALS: BMI 31.3
[2019-06-05 12:11] LABS: International Normalized Ratio 2.5; Prothrombin Time (Protime)PT. 26.6 SECONDS (11.7-14.9)
== END ==
PROVIDERS: Family Provider Family Medicine; PCP Family Medicine; Visit Provider Internal Medicine Cardiovascular Disease
DX: Z79.01 Long term (current) use of 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 (principal)
CPT/HCPCS: 36415; 85610

== ENCOUNTER → 2019-07-14 10:08 | Outpatient (CLI) | payer MEDICARE, OTHER, SELFPAY ==
[2019-05-29 09:57] VITALS: BMI 31.3
[2019-07-14 12:52] LABS: Absolute Lymphocyte Count 1.16 X10^3/uL (0.83-4.51); Absolute Neutrophil Count 4.8 X10^3/uL (2.0-7.7); Basophil# 0.03 X10^3/uL; Basophil% 0.4 % (0-1); Eosinophils% 4.3 % (0-5); Hematocrit 35.2 % (40-54); Hemoglobin 11.6 g/dL (13.0-16.5); Lymphocyte # 1.16 X10^3/ul (4.0); Lymphocyte % 16.8 % (19-41); Mean Corpuscular Hgb 32.8 pg (27.0-32.0); Mean Corpuscular Volume 99.4 fL (80-94); Mean Platelet Vol. 11.4 fl (6.2-12.0); Monocyte# 0.63 X10^3/uL; Monocyte% 9.1 % (0-10); NRBC Flagged by Analyzer 0 % (0-5); Neutrophil # 4.75 X10^3/uL (2.7-7.7); Platelet Count 131 K/mm3 (150-450); RBC Distribution Width CV 14.9 % (11.6-14.6); RBC Distribution Width SD 54.6 fl (35.1-43.9); Red Blood Count 3.54 M/mm3 (4.6-6.2); White Blood Count 6.9 K/mm3 (4.4-11.0)
[2019-07-14 13:13] LABS: ALB/GLOB Ratio 0.9 RATIO (0.9-2.4); AST(SGOT) 49 U/L (15-37); Alanine Aminotransfer ALT/SGPT 43 U/L (16-61); Albumin, Serum 3.9 g/dL (3.2-5.0); Alkaline Phosphatase 167 U/L (45-117); Anion Gap 9 (5-15); BUN 45 mg/dL (7-18); BUN/Creat Ratio 19.8 RATIO (10-20); Calcium,Total 9.2 mg/dL (8.5-10.1); Chloride 109 mmol/L (98-107); Creatinine, Serum 2.27 mg/dL (0.70-1.30); EST Glomerular Filtration Rate 31 mL/min (>60); Est Glom Filt Rate - Afr Amer 37 mL/min (>60); Ferritin 188 ng/mL (26-388); Globulin 4.3 g/dL (2.2-4.2); Glucose 104 mg/dL (74-106); Iron 59 ug/dL (65-175); Iron Binding Capacity,Total 314 ug/dL (250-450); LDH 446 U/L (87-241); PERCENT IRON SATURATION 18.8 % (15.0-55.0); Potassium 4.5 mmol/L (3.5-5.1); Protein, Total 8.2 g/dL (6.4-8.2); Sodium Level 139 mmol/L (136-145)
== END ==
PROVIDERS: Internal Medicine Medical Oncology; Family Provider Family Medicine; PCP Family Medicine; Visit Provider Internal Medicine Nephrology
DX: N18.3 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, stage 3 (moderate) (principal); N25.81 Secondary hyperparathyroidism of renal origin; D50.9 Iron deficiency anemia, unspecified; Z79.01 Long term (current) use of 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; Z85.72 Personal history of non-Hodgkin lymphomas
CPT/HCPCS: 36415; 80053; 82728; 83540; 83550; 83615; 83970; 84100; 85025; 85610

== ENCOUNTER → 2019-08-14 09:25 | Outpatient (CLI) | payer MEDICARE, OTHER, SELFPAY ==
[2019-07-15 14:04] VITALS: BMI 31.1
[2019-08-14 12:11] LABS: Hematocrit 37.3 % (40-54); Hemoglobin 11.9 g/dL (13.0-16.5); Mean Corp Hgb Conc 31.9 g/dL (32-36); Mean Corpuscular Hgb 32.3 pg (27.0-32.0); Mean Corpuscular Volume 101.4 fL (80-94); Mean Platelet Vol. 10.8 fl (6.2-12.0); Platelet Count 154 K/mm3 (150-450); RBC Distribution Width CV 15.5 % (11.6-14.6); RBC Distribution Width SD 58.3 fl (35.1-43.9); Red Blood Count 3.68 M/mm3 (4.6-6.2); White Blood Count 6.4 K/mm3 (4.4-11.0)
[2019-08-14 12:22] LABS: ALB/GLOB Ratio 0.9 RATIO (0.9-2.4); AST(SGOT) 45 U/L (15-37); Alanine Aminotransfer ALT/SGPT 33 U/L (16-61); Albumin, Serum 3.8 g/dL (3.2-5.0); Alkaline Phosphatase 144 U/L (45-117); Anion Gap 6 (5-15); BUN 54 mg/dL (7-18); BUN/Creat Ratio 23.4 RATIO (10-20); Bilirubin, Direct 0.38 mg/dL (0.00-0.30); Calcium,Total 9.2 mg/dL (8.5-10.1); Chloride 114 mmol/L (98-107); Cholesterol 176 mg/dL (200); Creatinine, Serum 2.31 mg/dL (0.70-1.30); EST Glomerular Filtration Rate 30 mL/min (>60); Est Glom Filt Rate - Afr Amer 36 mL/min (>60); Globulin 4.3 g/dL (2.2-4.2); Glucose 101 mg/dL (74-106); High Density Lipoprotein 33 mg/dL; Phosphorus 3.5 mg/dL (2.5-4.9); Potassium 4.5 mmol/L (3.5-5.1); Protein, Total 8.1 g/dL (6.4-8.2); Sodium Level 142 mmol/L (136-145); Triglycerides 146 mg/dL; Very Low Density Lipoprotein 29 mg/dL (5-40)
[2019-08-14 12:31] LABS: International Normalized Ratio 2.7; Prothrombin Time (Protime)PT. 28.4 SECONDS (11.7-14.9)
[2019-08-14 13:06] LABS: PTHIN 94.2 pg/mL (18.4-80.1)
== END ==
PROVIDERS: Physician Assistant Medical; Family Provider Family Medicine; PCP Family Medicine; Visit Provider Internal Medicine Nephrology
DX: N18.3 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, stage 3 (moderate) (principal); N25.81 Secondary hyperparathyroidism of renal origin; Z79.01 Long term (current) use of 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
CPT/HCPCS: 36415; 80053; 80061; 82248; 83970; 84100; 85027; 85610

== ENCOUNTER → 2019-09-11 10:14 | Outpatient (CLI) | payer MEDICARE, OTHER, SELFPAY ==
[2019-08-28 10:31] VITALS: BMI 30.8
[2019-09-11 12:59] LABS: Prothrombin Time (Protime)PT. 35.7 SECONDS (11.7-14.9)
[2019-09-11 13:02] LABS: International Normalized Ratio 3.5
== END ==
PROVIDERS: Family Provider Family Medicine; PCP Family Medicine; Visit Provider Internal Medicine Cardiovascular Disease
DX: Z79.01 Long term (current) use of 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 (principal)
CPT/HCPCS: 36415; 85610

== ENCOUNTER 2019-11-06 10:18 | Outpatient (RCR) | payer MEDICARE, OTHER, SELFPAY ==
[2019-04-19 01:26] VITALS: BMI 31.4
[2019-08-28 10:31] VITALS: BMI 30.8
[2019-11-06 11:41] LABS: International Normalized Ratio 2.8; Prothrombin Time (Protime)PT. 29.3 SECONDS (11.7-14.9)
== END 2019-11-06 18:00 | disposition home or self-care (01) ==
LOC: LAB 10:18
PROVIDERS: Family Provider Family Medicine; PCP Family Medicine; Referring Provider Internal Medicine Cardiovascular Disease; Visit Provider Internal Medicine Cardiovascular Disease
DX: Z79.01 Long term (current) use of 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 (principal)
CPT/HCPCS: 36415; 85610

== ENCOUNTER 2019-12-08 10:21 | Outpatient (RCR) | payer MEDICARE, OTHER, SELFPAY ==
[2019-08-28 10:31] VITALS: BMI 30.8
[2019-12-08 11:13] LABS: International Normalized Ratio 2.7; Prothrombin Time (Protime)PT. 28.7 SECONDS (11.7-14.9)
== END 2019-12-08 18:00 | disposition home or self-care (01) ==
LOC: LAB 10:21
PROVIDERS: Family Provider Family Medicine; PCP Family Medicine; Referring Provider Internal Medicine Cardiovascular Disease; Visit Provider Internal Medicine Cardiovascular Disease
DX: Z79.01 Long term (current) use of 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 (principal); Z95.2 Presence of prosthetic heart valve
CPT/HCPCS: 36415; 85610

== ENCOUNTER 2020-01-12 05:56 | Outpatient (RCR) | payer MEDICARE, OTHER, SELFPAY ==
[2019-08-28 10:31] VITALS: BMI 30.8
[2020-01-12 07:40] LABS: Absolute Lymphocyte Count 1.38 X10^3/uL (0.83-4.51); Absolute Neutrophil Count 4.1 X10^3/uL (2.0-7.7); Basophil# 0.05 X10^3/uL; Basophil% 0.7 % (0-1); Eosinophil# 0.38 X10^3/uL; Eosinophils% 5.7 % (0-5); Hemoglobin 11.1 g/dL (13.0-16.5); Lymphocyte # 1.38 X10^3/ul (4.0); Lymphocyte % 20.7 % (19-41); Mean Corp Hgb Conc 32.6 g/dL (32-36); Mean Corpuscular Hgb 32.4 pg (27.0-32.0); Mean Corpuscular Volume 99.1 fL (80-94); Monocyte# 0.74 X10^3/uL; Monocyte% 11.1 % (0-10); NRBC Flagged by Analyzer 0 % (0-5); Neutrophil # 4.08 X10^3/uL (2.7-7.7); Neutrophil % 61.2 % (47-70); Platelet Count 153 K/mm3 (150-450); RBC Distribution Width CV 15.2 % (11.6-14.6); RBC Distribution Width SD 55.4 fl (35.1-43.9); Red Blood Count 3.43 M/mm3 (4.6-6.2); White Blood Count 6.7 K/mm3 (4.4-11.0)
[2020-01-12 08:41] LABS: International Normalized Ratio 2.7; Prothrombin Time (Protime)PT. 29.1 SECONDS (11.7-14.9)
[2020-01-12 08:49] LABS: ALB/GLOB Ratio 0.8 RATIO (0.9-2.4); AST(SGOT) 49 U/L (15-37); Alanine Aminotransfer ALT/SGPT 52 U/L (16-61); Albumin, Serum 3.6 g/dL (3.2-5.0); Alkaline Phosphatase 159 U/L (45-117); Anion Gap 8 (5-15); BUN 55 mg/dL (7-18); BUN/Creat Ratio 20.9 RATIO (10-20); Calcium,Total 9.2 mg/dL (8.5-10.1); Chloride 109 mmol/L (98-107); Creatinine, Serum 2.63 mg/dL (0.70-1.30); EST Glomerular Filtration Rate 26 mL/min (>60); Est Glom Filt Rate - Afr Amer 31 mL/min (>60); Ferritin 167 ng/mL (26-388); Globulin 4.4 g/dL (2.2-4.2); Glucose 110 mg/dL (74-106); Iron 60 ug/dL (65-175); Iron Binding Capacity,Total 315 ug/dL (250-450); LDH 409 U/L (87-241); Potassium 4.7 mmol/L (3.5-5.1); Sodium Level 139 mmol/L (136-145)
[2020-01-13 08:52] LABS: Vitamin B12 1657 pg/mL (211-911)
== END 2020-01-12 18:00 | disposition home or self-care (01) ==
LOC: LAB 05:56
PROVIDERS: Internal Medicine Medical Oncology; Family Provider Family Medicine; PCP Family Medicine; Referring Provider Internal Medicine Cardiovascular Disease; Visit Provider Internal Medicine Cardiovascular Disease
DX: Z79.01 Long term (current) use of 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 (principal); Z95.2 Presence of prosthetic heart valve
CPT/HCPCS: 36415; 80053; 82607; 82728; 82746; 83540; 83550; 83615; 85025; 85610

== ENCOUNTER 2020-02-11 08:47 | Outpatient (RCR) | payer MEDICARE, OTHER, SELFPAY ==
[2020-01-19 09:09] VITALS: BMI 30.8
[2020-01-28 15:03] VITALS: BMI 31.8
[2020-02-02 09:56] LABS: International Normalized Ratio 2.6; Prothrombin Time (Protime)PT. 28.1 SECONDS (11.7-14.9)
[2020-02-11 10:41] LABS: Prothrombin Time (Protime)PT. 36.9 SECONDS (11.7-14.9)
[2020-02-11 10:44] LABS: International Normalized Ratio 3.7
== END 2020-02-17 23:59 ==
LOC: PAVLAB 08:47
PROVIDERS: Family Provider Family Medicine; PCP Family Medicine; Referring Provider Internal Medicine Cardiovascular Disease; Visit Provider Internal Medicine Cardiovascular Disease
DX: Z79.01 Long term (current) use of 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 (principal); Z95.2 Presence of prosthetic heart valve
CPT/HCPCS: 36415; 85610

== ENCOUNTER 2020-03-16 08:55 | Outpatient (RCR) | payer MEDICARE, OTHER, SELFPAY ==
[2020-01-28 15:03] VITALS: BMI 31.8
[2020-03-02 11:21] LABS: Absolute Neutrophil Count 4.6 X10^3/uL (2.0-7.7); Basophil# 0.06 X10^3/uL; Basophil% 0.9 % (0-1); Eosinophil# 0.42 X10^3/uL; Hematocrit 31.7 % (40-54); Lymphocyte % 18.5 % (19-41); Mean Corp Hgb Conc 31.5 g/dL (32-36); Mean Corpuscular Hgb 32.2 pg (27.0-32.0); Mean Corpuscular Volume 101.9 fL (80-94); Mean Platelet Vol. 10.5 fl (6.2-12.0); Monocyte# 0.61 X10^3/uL; Monocyte% 8.7 % (0-10); NRBC Flagged by Analyzer 0 % (0-5); Neutrophil # 4.62 X10^3/uL (2.7-7.7); Neutrophil % 65.5 % (47-70); Platelet Count 141 K/mm3 (150-450); RBC Distribution Width SD 59.4 fl (35.1-43.9); Red Blood Count 3.11 M/mm3 (4.6-6.2)
[2020-03-02 11:24] LABS: International Normalized Ratio 3.3
[2020-03-02 11:43] LABS: PTHIN 156.8 pg/mL (18.4-80.1)
[2020-03-02 11:51] LABS: Albumin, Serum 3.7 g/dL (3.2-5.0); BUN 62 mg/dL (7-18); BUN/Creat Ratio 18.5 RATIO (10-20); Calcium,Total 8.9 mg/dL (8.5-10.1); Chloride 113 mmol/L (98-107); Creatinine, Serum 3.35 mg/dL (0.70-1.30); EST Glomerular Filtration Rate 19 mL/min (>60); Est Glom Filt Rate - Afr Amer 24 mL/min (>60); Glucose 102 mg/dL (74-106); Phosphorus 3.9 mg/dL (2.5-4.9); Potassium 5.1 mmol/L (3.5-5.1); Sodium Level 143 mmol/L (136-145)
[2020-03-16 09:31] LABS: Albumin, Serum 3.4 g/dL (3.2-5.0); BUN 59 mg/dL (7-18); BUN/Creat Ratio 19.4 RATIO (10-20); Chloride 110 mmol/L (98-107); Creatinine, Serum 3.04 mg/dL (0.70-1.30); EST Glomerular Filtration Rate 22 mL/min (>60); Est Glom Filt Rate - Afr Amer 26 mL/min (>60); Glucose 114 mg/dL (74-106); Phosphorus 2.8 mg/dL (2.5-4.9); Potassium 4.4 mmol/L (3.5-5.1); Sodium Level 139 mmol/L (136-145)
[2020-03-16 09:44] LABS: International Normalized Ratio 2.6; Prothrombin Time (Protime)PT. 27.6 SECONDS (11.7-14.9)
== END 2020-03-18 23:59 ==
LOC: PAVLAB 08:55
PROVIDERS: Internal Medicine Nephrology; Family Provider Family Medicine; PCP Family Medicine; Referring Provider Internal Medicine Cardiovascular Disease; Visit Provider Internal Medicine Cardiovascular Disease
DX: N18.3 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, stage 3 (moderate) (principal); N25.81 Secondary hyperparathyroidism of renal origin; Z79.01 Long term (current) use of 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; Z95.2 Presence of prosthetic heart valve; N17.9 Acute kidney failure, unspecified
CPT/HCPCS: 36415; 80069; 83970; 85025; 85610

== ENCOUNTER 2020-04-14 08:18 | Outpatient (RCR) | payer MEDICARE, OTHER, SELFPAY ==
[2020-01-28 15:03] VITALS: BMI 31.8
[2020-03-25 09:50] VITALS: BMI 31.8
[2020-03-31 11:03] LABS: International Normalized Ratio 2.2; Prothrombin Time (Protime)PT. 23.7 SECONDS (11.7-14.9)
[2020-04-14 09:56] LABS: International Normalized Ratio 1.9; Prothrombin Time (Protime)PT. 21.2 SECONDS (11.7-14.9)
== END 2020-04-14 18:00 | disposition home or self-care (01) ==
LOC: LAB 08:18
PROVIDERS: Family Provider Family Medicine; PCP Family Medicine; Referring Provider Internal Medicine Cardiovascular Disease; Visit Provider Internal Medicine Cardiovascular Disease
DX: Z79.01 Long term (current) use of 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 (principal); Z95.2 Presence of prosthetic heart valve
CPT/HCPCS: 36415; 85610

== ENCOUNTER → 2020-04-15 07:15 | Outpatient (CLI) | payer MEDICARE, OTHER, SELFPAY ==
[2020-03-25 09:50] VITALS: BMI 31.8
--- NOTE | 2020-04-15 07:16 | ECHOCS_ITS ---
Reason For Study: AVR and MV Repair Procedure This was a 2D Doppler, Color Flow transthoracic echocardiogram. The study was technically difficult. Contrast injection was performed. Exam performed in department. Left Ventricle Moderately dilated left ventricle. D shaped septum in systole and diastole. Mild concentric left ventricular hypertrophy. Segmental dysfunction with preserved ejection fraction (see wall motion). The estimated ejection fraction is 55 %. Unable to assess diastolic dysfunction. Mid-inferoseptal : Hypokinetic. Mid-anteroseptal : Hypokinetic. Septal [place] : Hypokinetic. Right Ventricle Normal RV size. ICD or pacer leads identified within the right ventricle. Normal systolic function. Atria The left atrium is moderately enlarged. Normal right atrium. ICD or pacer leads identified within the right atrium. No doppler evidence for ASD. Mitral Valve Mild focal mitral valve calcification of the anterior leaflet. Mild mitral valve stenosis. An annuloplasty ring is noted in the mitral position. Mild to moderate (1-2) transvalvular insufficiency of the mitral valve. Tricuspid Valve Normal tricuspid valve. Mild to moderate (1-2+) tricuspid valve insufficiency. Right ventricular systolic pressure estimated to be 60 mmHg. Aortic Valve Mild aortic stenosis. Stable appearing mechanical aortic valve apparatus. Mild to Moderate transvalvular insufficiency of the aortic valve. Pulmonic Valve The pulmonic valve is not well visualized. Mild (1+) pulmonic valve insufficiency. Great Vessels The aortic root is not well visualized. Pericardium/Pleural No pericardial effusion. Medication Diluted definity 1ml given slow IV push to enhance endocardial definition. Dr. Grullon gave permission to use Definity with PAP. MMode/2D Measurements & Calculations LVIDd: 6.0 cm IVSd: 1.3 cm LVOT diam: 2.1 cm LVIDs: 3.9 cm LVPWd: 1.3 cm RVDd: 3.0 cm FS: 35.6 % LVOT area: 3.3 cm2 Ao root diam: 3.8 cm LAV(MOD-bp): 120.5 ml LA A4 area: 32.7 cm2 LAV(MOD-bp) Indexed: 59.7 ml/m2 LAV(MOD-sp2): 95.6 ml LAV(MOD-sp4): 122.8 ml LA dimension(2D): 5.7 cm RA A4 area: 16.4 cm2 Doppler Measurements & Calculations MV E max christie: 156.5 cm/sec MV V2 max: 185.3 cm/sec MV P1/2t max christie: 181.6 cm/sec MV max P.7 mmHg MV P1/2t: 102.0 msec MV V2 mean: 102.3 cm/sec MV dec slope: 521.4 cm/sec2 MV mean P.2 mmHg MV V2 VTI: 43.2 cm MVA(P1/2t): 2.2 cm2 MVA(VTI): 1.8 cm2 Ao V2 max: 281.6 cm/sec AI max christie: 349.0 cm/sec LV V1 max: 107.1 cm/sec Ao max P.7 mmHg AI max P.8 mmHg LV V1 max P.6 mmHg Ao V2 mean: 176.5 cm/sec LV V1 mean P.3 mmHg Ao mean P.7 mmHg AI dec slope: 279.3 cm/sec2 LV V1 mean: 70.7 cm/sec Ao V2 VTI: 54.3 cm AI P1/2t: 366.0 msec LV V1 VTI: 23.9 cm HAJA(I,D): 1.5 cm2 HAJA(V,D): 1.3 cm2 SV(LVOT): 79.4 ml PA V2 max: 110.1 cm/sec TR max christie: 359.5 cm/sec TR max P.7 mmHg Interpretation Summary The study was technically difficult. Contrast injection was performed. Moderately dilated left ventricle. Segmental dysfunction with preserved ejection fraction (see wall motion). The estimated ejection fraction is 55 %. D shaped septum in systole and diastole. Mild concentric left ventricular hypertrophy. The left atrium is moderately enlarged. An annuloplasty ring is noted in the mitral position. Mild focal mitral valve calcification of the anterior leaflet. Mild mitral valve stenosis. Mild to moderate (1-2) transvalvular insufficiency of the mitral valve. Mild to moderate (1-2+) tricuspid valve insufficiency. Stable appearing mechanical aortic valve apparatus. Mild aortic stenosis. Mild to Moderate transvalvular insufficiency of the aortic valve. Mild (1+) pulmonic valve insufficiency. Right ventricular systolic pressure estimated to be 60 mmHg. Unable to assess diastolic dysfunction. ICD or pacer leads identified within the right atrium ICD or pacer leads identified within the right ventricle. Ordering Physician: Jeff Grullon Referring Physician: Vinny Atkinson Performed By: Cassandra Menard RDCS
--- NOTE | 2020-04-15 09:36 | STRESSREP_ITS ---
Stress Test Report Date: 04-15-2020 Procedure: Pharmacologic stress nuclear imaging study Indications: Shortness of breath/dyspnea on exertion; fatigue; status post AVR; atrial dysrhythmia; cardiomyopathy; PPM Consent: Per the patient Procedure: The patient underwent pharmacologic (Regadenoson) evaluation with a peak heart rate of 69 beats per minute (46 %predicted maximal heart rate) and a peak blood pressure of 124/58 mmHg. The baseline ECG demonstrated electronic ventricular paced rhythm. The peak pharmacologic ECG demonstrated no obvious ECG changes. There were no cardiac dysrhythmias pretest, during pharmacologic infusion, or recovery. There was no complaint of chest discomfort during pharmacologic infusion or recovery. The examination was discontinued secondary to completion of protocol. Impression: 1. Pharmacologic (Regadenoson) evaluation 2. Peak pharmacologic ECG with continued electronic ventricular paced rhythm with no obvious ECG changes. 3. There were no cardiac dysrhythmias pretest, during pharmacologic infusion, or recovery. 4. Nuclear images pending Myocardial perfusion imaging study: Technique: The patient was injected with 12.0 millicuries of technetium 99m Cardiolite and subsequently rest SPECT Cardiolite nuclear imaging was obtained in the horizontal long, vertical long, and short axis views. The patient underwent pharmacologic (Regadenoson) evaluation with a peak heart rate of 69 beats per minute (46 % percent predicted maximal heart rate) and a peak blood pressure of 124/58 mmHg. The patient was injected with 36.0 millicuries of technetium 99m Cardiolite and subsequently stress SPECT Cardiolite nuclear imaging was obtained in the horizontal long, vertical long, and short axis views. A gated Cardiolite study at peak stress was obtained. Interpretation: Rest and stress SPECT Cardiolite nuclear imaging status post realignment, normalization, and attenuation correction demonstrate at rest relative uniform tracer uptake and myocardial perfusion appearing within normal limits. Status post stress there is a small area of diminished myocardial perfusion/tracer uptake in the mid to distal anterior segments. There are similar type findings on the resting and stress polar map images. There is end systolic thickening and brightening. The gated Cardiolite study demonstrates myocardial thickening and inward wall motion. The reported LVEF is 52 %. Impression: 1. Rest and stress SPECT current nuclear imaging demonstrate myocardial perfusion changes potentially compatible with an area of stress-induced myocardial ischemia in portions of the mid to distal anterior segments although an element of shifting soft tissue attenuation/artifact cannot necessarily be excluded. 2. The gated Cardiolite study reports an LVEF of 52 %. This note was generated with [employer] software. It may contain incorrect words, spelling, and punctuation that were not noted in checking the note before signing.
== END ==
PROVIDERS: PCP Family Medicine; Referring Provider Internal Medicine Cardiovascular Disease; Visit Provider Internal Medicine Cardiovascular Disease
DX: R06.00 Dyspnea, unspecified (principal); R53.83 Other fatigue; I48.3 Typical atrial flutter; I47.2 Ventricular tachycardia; I43 Cardiomyopathy in diseases classified elsewhere; I10 Essential (primary) hypertension; E78.00 Pure hypercholesterolemia, unspecified; Z95.0 Presence of cardiac pacemaker; Z95.2 Presence of prosthetic heart valve; Z98.890 Other specified postprocedural states
CPT/HCPCS: 78452; 93017; 93306; A9500; Q9957; A4216; C8929; J2785

== ENCOUNTER 2020-05-13 09:19 | Outpatient (RCR) | payer MEDICARE, OTHER, SELFPAY ==
[2020-03-25 09:50] VITALS: BMI 31.8
[2020-04-28 10:44] LABS: International Normalized Ratio 3.3; Prothrombin Time (Protime)PT. 33.2 SECONDS (11.7-14.9)
[2020-05-13 09:41] LABS: International Normalized Ratio 2.7; Prothrombin Time (Protime)PT. 28.5 SECONDS (11.7-14.9)
== END 2020-05-18 23:59 ==
LOC: PAVLAB 09:19
PROVIDERS: Family Provider Family Medicine; PCP Family Medicine; Referring Provider Internal Medicine Cardiovascular Disease; Visit Provider Internal Medicine Cardiovascular Disease
DX: Z79.01 Long term (current) use of 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 (principal); Z95.2 Presence of prosthetic heart valve
CPT/HCPCS: 36415; 85610

== ENCOUNTER → 2020-06-02 13:47 | Outpatient (CLI) | payer MEDICARE, OTHER, SELFPAY ==
[2020-01-28 15:03] VITALS: BMI 31.8
[2020-03-25 09:50] VITALS: BMI 31.8
[2020-06-02 16:23] LABS: Absolute Neutrophil Count 3.6 X10^3/uL (2.0-7.7); Basophil# 0.03 X10^3/uL; Basophil% 0.5 % (0-1); Eosinophil# 0.27 X10^3/uL; Eosinophils% 4.9 % (0-5); Hematocrit 31.8 % (40-54); Hemoglobin 10.3 g/dL (13.0-16.5); Lymphocyte % 18.2 % (19-41); Mean Corp Hgb Conc 32.4 g/dL (32-36); Mean Corpuscular Hgb 33.1 pg (27.0-32.0); Mean Corpuscular Volume 102.3 fL (80-94); Mean Platelet Vol. 11.8 fl (6.2-12.0); Monocyte# 0.57 X10^3/uL; Monocyte% 10.4 % (0-10); NRBC Flagged by Analyzer 0 % (0-5); Neutrophil # 3.59 X10^3/uL (2.7-7.7); Neutrophil % 65.6 % (47-70); Platelet Count 132 K/mm3 (150-450); RBC Distribution Width CV 15.3 % (11.6-14.6); Red Blood Count 3.11 M/mm3 (4.6-6.2); White Blood Count 5.5 K/mm3 (4.4-11.0)
[2020-06-02 16:28] LABS: International Normalized Ratio 2.4; Prothrombin Time (Protime)PT. 25.4 SECONDS (11.7-14.9)
[2020-06-02 16:36] LABS: Albumin, Serum 3.8 g/dL (3.2-5.0); BUN 50 mg/dL (7-18); BUN/Creat Ratio 18.1 RATIO (10-20); Chloride 107 mmol/L (98-107); Creatinine, Serum 2.77 mg/dL (0.70-1.30); EST Glomerular Filtration Rate 24 mL/min (>60); Est Glom Filt Rate - Afr Amer 29 mL/min (>60); Glucose 81 mg/dL (74-106); Phosphorus 3.3 mg/dL (2.5-4.9); Potassium 4.3 mmol/L (3.5-5.1); Sodium Level 139 mmol/L (136-145)
[2020-06-03 09:40] LABS: PTHIN 80.9 pg/mL (18.4-80.1)
== END ==
PROVIDERS: PCP Family Medicine; Referring Provider Internal Medicine Cardiovascular Disease; Visit Provider Internal Medicine Nephrology
DX: Z95.2 Presence of prosthetic heart valve (principal); Z79.01 Long term (current) use of 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; N18.3 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, stage 3 (moderate); N17.9 Acute kidney failure, unspecified; N25.81 Secondary hyperparathyroidism of renal origin; D63.1 Anemia in chronic kidney disease
CPT/HCPCS: 36415; 80069; 83970; 85025; 85610

== ENCOUNTER 2020-06-16 10:41 | Outpatient (RCR) | payer MEDICARE, OTHER, SELFPAY ==
[2020-03-25 09:50] VITALS: BMI 31.8
[2020-06-16 11:35] LABS: International Normalized Ratio 2.5; Prothrombin Time (Protime)PT. 26.8 SECONDS (11.7-14.9)
== END 2020-06-16 18:00 | disposition home or self-care (01) ==
LOC: LAB 10:41
PROVIDERS: Family Provider Family Medicine; PCP Family Medicine; Referring Provider Internal Medicine Cardiovascular Disease; Visit Provider Internal Medicine Cardiovascular Disease
DX: Z95.2 Presence of prosthetic heart valve (principal); Z79.01 Long term (current) use of 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
CPT/HCPCS: 36415; 85610

== ENCOUNTER 2020-08-16 11:20 | Outpatient (RCR) | payer MEDICARE, OTHER, SELFPAY ==
[2020-03-25 09:50] VITALS: BMI 31.8
[2020-07-13 13:32] VITALS: BMI 31.1
[2020-08-09 10:47] LABS: International Normalized Ratio 1.5; Prothrombin Time (Protime)PT. 17.1 SECONDS (11.7-14.9)
[2020-08-09 11:11] LABS: AST(SGOT) 31 U/L (15-37); Alanine Aminotransfer ALT/SGPT 22 U/L (16-61); Albumin, Serum 3.4 g/dL (3.2-5.0); Alkaline Phosphatase 155 U/L (45-117); Bilirubin, Direct 0.44 mg/dL (0.00-0.30); Cholesterol 158 mg/dL (200); Globulin 4.1 g/dL (2.2-4.2); High Density Lipoprotein 29 mg/dL; Protein, Total 7.5 g/dL (6.4-8.2); Triglycerides 113 mg/dL; Very Low Density Lipoprotein 23 mg/dL (5-40)
[2020-08-11 12:45] LABS: International Normalized Ratio 1.7; Prothrombin Time (Protime)PT. 19.6 SECONDS (11.7-14.9)
[2020-08-13 10:47] LABS: International Normalized Ratio 2.2; Prothrombin Time (Protime)PT. 23.7 SECONDS (11.7-14.9)
[2020-08-16 12:12] LABS: International Normalized Ratio 2.4
== END 2020-08-16 18:00 | disposition home or self-care (01) ==
LOC: LAB 11:20
PROVIDERS: Physician Assistant Medical; Family Provider Family Medicine; PCP Family Medicine; Referring Provider Internal Medicine Cardiovascular Disease; Visit Provider Internal Medicine Cardiovascular Disease
DX: E78.00 Pure hypercholesterolemia, unspecified (principal); Z95.2 Presence of prosthetic heart valve; Z79.01 Long term (current) use of 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
CPT/HCPCS: 36415; 80061; 80076; 85610

== ENCOUNTER 2020-09-09 10:29 | Outpatient (RCR) | payer MEDICARE, OTHER, SELFPAY ==
[2020-07-13 13:32] VITALS: BMI 31.1
[2020-08-23 12:30] LABS: International Normalized Ratio 3.2
[2020-09-09 11:00] LABS: Absolute Lymphocyte Count 1.14 X10^3/uL (0.83-4.51); Absolute Neutrophil Count 4.2 X10^3/uL (2.0-7.7); Basophil# 0.03 X10^3/uL; Basophil% 0.5 % (0-1); Eosinophil# 0.32 X10^3/uL; Eosinophils% 5.1 % (0-5); Hematocrit 28.2 % (40-54); Hemoglobin 8.8 g/dL (13.0-16.5); Lymphocyte # 1.14 X10^3/ul (4.0); Lymphocyte % 18.2 % (19-41); Mean Corp Hgb Conc 31.2 g/dL (32-36); Mean Corpuscular Hgb 32.7 pg (27.0-32.0); Mean Corpuscular Volume 104.8 fL (80-94); Mean Platelet Vol. 9.8 fl (6.2-12.0); Monocyte# 0.58 X10^3/uL; Monocyte% 9.3 % (0-10); NRBC Flagged by Analyzer 0 % (0-5); Neutrophil # 4.16 X10^3/uL (2.7-7.7); Neutrophil % 66.4 % (47-70); Platelet Count 138 K/mm3 (150-450); RBC Distribution Width CV 15.9 % (11.6-14.6); Red Blood Count 2.69 M/mm3 (4.6-6.2); White Blood Count 6.3 K/mm3 (4.4-11.0)
[2020-09-09 11:10] LABS: International Normalized Ratio 2.6; Prothrombin Time (Protime)PT. 27.3 SECONDS (11.7-14.9)
[2020-09-09 11:18] LABS: ALB/GLOB Ratio 0.8 RATIO (0.9-2.4); AST(SGOT) 34 U/L (15-37); Alanine Aminotransfer ALT/SGPT 24 U/L (16-61); Albumin, Serum 3.4 g/dL (3.2-5.0); Alkaline Phosphatase 147 U/L (45-117); Anion Gap 8 (5-15); BUN 47 mg/dL (7-18); BUN/Creat Ratio 17.2 RATIO (10-20); Calcium,Total 8.9 mg/dL (8.5-10.1); Chloride 112 mmol/L (98-107); Creatinine, Serum 2.73 mg/dL (0.70-1.30); EST Glomerular Filtration Rate 25 mL/min (>60); Est Glom Filt Rate - Afr Amer 30 mL/min (>60); Ferritin 86 ng/mL (26-388); Globulin 4.1 g/dL (2.2-4.2); Glucose 103 mg/dL (74-106); Iron 47 ug/dL (65-175); Iron Binding Capacity,Total 326 ug/dL (250-450); LDH 390 U/L (87-241); PERCENT IRON SATURATION 14.4 % (15.0-55.0); Potassium 4.4 mmol/L (3.5-5.1); Protein, Total 7.5 g/dL (6.4-8.2); Sodium Level 143 mmol/L (136-145)
[2020-09-09 18:57] LABS: Xtra Tube EP Lab EXTRA TUBE
== END 2020-09-09 18:00 | disposition home or self-care (01) ==
LOC: LAB 10:29
PROVIDERS: Internal Medicine Medical Oncology; Family Provider Family Medicine; PCP Family Medicine; Referring Provider Internal Medicine Cardiovascular Disease; Visit Provider Internal Medicine Cardiovascular Disease
DX: Z79.01 Long term (current) use of 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 (principal); Z95.2 Presence of prosthetic heart valve; N18.30 Chronic kidney disease, stage 3 unspecified; N17.9 Acute kidney failure, unspecified; D64.9 Anemia, unspecified; N25.81 Secondary hyperparathyroidism of renal origin
CPT/HCPCS: 36415; 80053; 82728; 83540; 83550; 83615; 85025; 85610

== ENCOUNTER 2020-09-30 10:16 | Outpatient (RCR) | payer MEDICARE, OTHER, SELFPAY ==
[2020-09-17 10:23] VITALS: BMI 31.4
[2020-09-24 10:27] VITALS: BMI 31.4
[2020-09-30 10:42] LABS: International Normalized Ratio 2.5; Prothrombin Time (Protime)PT. 26.1 SECONDS (11.7-14.9)
== END 2020-09-30 18:00 | disposition home or self-care (01) ==
LOC: LAB 10:16
PROVIDERS: Family Provider Family Medicine; PCP Family Medicine; Referring Provider Internal Medicine Cardiovascular Disease; Visit Provider Internal Medicine Cardiovascular Disease
DX: Z95.2 Presence of prosthetic heart valve (principal); Z79.01 Long term (current) use of 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
CPT/HCPCS: 36415; 85610

== ENCOUNTER 2020-10-27 11:24 | Inpatient (IN) | payer MEDICARE, OTHER, SELFPAY ==
[2020-09-24 10:27] VITALS: BMI 31.4
[2020-10-27] VITALS (7 sets, daily range): BP systolic 109–147; BP diastolic 41–75; PULSE 62–83; RESP 16–31; TEMP 36–36.9; O2SAT 97–99; BMI 29.7; BMI 29.9
--- NOTE | 2020-10-27 11:50 | EKG12_ITS ---
Test Reason : Blood Pressure : / mmHG Vent. Rate : 070 BPM Atrial Rate : 070 BPM P-R Int : 320 ms QRS Dur : 156 ms QT Int : 524 ms P-R-T Axes : 025 -16 076 degrees QTc Int : 565 ms Atrial-sensed ventricular-paced rhythm with prolonged AV conduction Biventricular pacemaker detected Abnormal ECG Confirmed by ALLEN NIX, AMINA ([id number]), managing editor TRINA VIVAR ([id number]) on 10/29/2020 2:04:24 PM Referred By: ANA M Confirmed By:AMINA VILLA MD
--- NOTE | 2020-10-27 11:52 | ED.VISSUMM ---
- ER Visit Summary Date of Service: 10/27/20 Chief Complaint: [Shortness of breath and GI bleed] History of Present Illness: The patient is a 70 M [presents to the emergency department complaint of shortness of breath or about a week ago. Patient states that he has had blood in his stool for about a week which is liquid and blood no real clots. Patient is on Coumadin. He has not had a INR checked in over a month because he was quarantining for a Covid exposure. Patient denies any Covid symptoms currently and states he is always little short of breath. Patient has a mild chronic cough that is no different than usual. He said no fever or sore throat. He denies body aches. Patient states that he had been exposed to his [id number] who developed Covid but today was day 14 of his quarantine. He has history of hypertension, high cholesterol, PSVT, atrial flutter and chronic kidney disease. Patient had a aortic valve replacement. Patient states that he had a colonoscopy in August with Dr. Yelitza Russo and apparently had a lot of friable tissue in the right side of the colon.] Physical Examination: [HEENT-PERRLA, EOMI. Cranial nerves II through XII grossly intact. TMs clear. Mucous membranes moist. No adenopathy. Cardiovascular-regular rate and rhythm without murmur or ectopy Lungs-clear to auscultation, chest wall stable without crepitus or subcu emphysema Abdomen-normoactive bowel sounds, soft, nontender, no rebound or rigidity, no peritoneal signs. Rectal exam-no masses noted. He does have some external hemorrhoids but no bleeding noted. Patient had brown stool Extremities-intact ?4, normal range of motion, normal pulses, atraumatic] Test Results: [] Emergency Department Course and Treatment: [] Treatment Plan: [] Disposition: [] Impression: [] This note was generated with 248 [employer] dictation software. It may contain incorrect words, spelling, and punctuation that were not noted in review of the chart prior to signing ED Disposition - Plan for ED Patient: Referrals: Vinny Atkinson MD [Primary Care Provider] -
[2020-10-27] MEDS: 0.9% Normal Saline 1,000 ML 125 ML IV (12:20)
[2020-10-27 12:27] LABS: Absolute Lymphocyte Count 0.83 X10^3/uL (0.83-4.51); Absolute Neutrophil Count 2.9 X10^3/uL (2.0-7.7); Basophil# 0.01 X10^3/uL; Basophil% 0.2 % (0-1); Eosinophil# 0.04 X10^3/uL; Eosinophils% 0.9 % (0-5); Hematocrit 28.2 % (40-54); Hemoglobin 9.1 g/dL (13.0-16.5); Lymphocyte # 0.83 X10^3/ul (4.0); Lymphocyte % 19.1 % (19-41); Mean Corp Hgb Conc 32.3 g/dL (32-36); Mean Corpuscular Hgb 32.4 pg (27.0-32.0); Mean Corpuscular Volume 100.4 fL (80-94); Mean Platelet Vol. 10.3 fl (6.2-12.0); Monocyte% 13.8 % (0-10); NRBC Flagged by Analyzer 0 % (0-5); Neutrophil # 2.85 X10^3/uL (2.7-7.7); Neutrophil % 65.5 % (47-70); Platelet Count 130 K/mm3 (150-450); RBC Distribution Width CV 15.2 % (11.6-14.6); RBC Distribution Width SD 56.4 fl (35.1-43.9); Red Blood Count 2.81 M/mm3 (4.6-6.2); White Blood Count 4.4 K/mm3 (4.4-11.0)
[2020-10-27 12:37] LABS: International Normalized Ratio 2.9; Prothrombin Time (Protime)PT. 29.7 SECONDS (11.7-14.9)
[2020-10-27 12:44] LABS: Anion Gap 6 (5-15); BUN 64 mg/dL (7-18); BUN/Creat Ratio 17.1 RATIO (10-20); Chloride 110 mmol/L (98-107); Creatinine, Serum 3.74 mg/dL (0.70-1.30); EST Glomerular Filtration Rate 17 mL/min (>60); Est Glom Filt Rate - Afr Amer 21 mL/min (>60); Estimated Creatinine Clearance 16.94 ml/min; Glucose 97 mg/dL (74-106); Potassium 4.6 mmol/L (3.5-5.1); Sodium Level 142 mmol/L (136-145)
--- NOTE | 2020-10-27 13:09 | PCM.HP.STD ---
Problem List (1) GI bleed Status: Acute Qualifiers: GI bleed type/associated pathology: unspecified gastrointestinal hemorrhage type Qualified Code(s): K92.2 - Gastrointestinal hemorrhage, unspecified (2) History of aortic valve replacement Status: Chronic Comment: 1986 mechanical aortic valve replacement; AVR pericardial tissue valve in 2002 (3) History of mitral valve repair Status: Resolved Comment: with pericardial tissue valve (4) History of diffuse large B-cell lymphoma Status: Acute (5) Pure hypercholesterolemia Status: Chronic (6) History of non-Hodgkin's lymphoma Status: Chronic (7) Biventricular cardiac pacemaker in situ Status: Chronic (8) Atrial flutter Status: Chronic Qualifiers: Atrial flutter type: typical Qualified Code(s): I48.3 - Typical atrial flutter Comment: AV junction ablation 03/01 (9) 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, stage III (moderate) Status: Chronic (10) Benign essential hypertension Status: Chronic History of Present Illness Date of Admission: 10/27/20 Chief Complaint: Right red bleeding per rectum - 1 week The patient is a 70 year old M with past medical history of mechanical aortic valve replacement, status post mitral valve repair, status post AICD, history of atrial flutter/PSVT on Coumadin who comes in with complaints of bright red bleeding per rectum ongoing for 1 week. Patient had contact with his [id number] who had COVID-19 infection. He had no sought treatment for his rectal bleeding because he was in a 14-day quarantine. Patient stated that today the last day of his current time and he called Dr. Ortiz's office and was asked to come to emergency department. He denied any fever or chills or cough or shortness of breath. He denied any abdominal discomfort. Denied any nausea or vomiting. Labs in the ED showed temperature of 90 6.8F, heart rate 71, blood pressure 131/61, respiratory rate was 16, SPO2 was 99% on room air. WBC count is 4.4, hemoglobin 9.1, platelet count 130, INR 2.9, sodium 142, calcium 4.6, chloride 110, bicarbonate 26, BUN 64, creatinine 3.74, Troponin 0.075 EKG showed paced rhythm. Patient had a recent stress test in March 2020 that was unremarkable. He also had a colonoscopy in July 2019 that showed a focal right-sided lesion suspicious of ischemic colitis. 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) AVR 2002 Paroxysmal ventricular tachycardia (Chronic) Atrial flutter (Chronic) AV junction ablation 03/01 Cardiomyopathy in disease classified elsewhere (Chronic) High triglycerides (Chronic) 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, stage III (moderate) (Chronic) Benign essential hypertension (Chronic) Medical History: Medical History (Last Reviewed 07/13/20 @ 13:30 by Linh Redman) Pure hypercholesterolemia (Chronic) E78.00 Biventricular cardiac pacemaker in situ (Chronic) Onset Date: ~05/26/16 Z95.0 Rheumatic mitral insufficiency (Chronic) I05.1 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) I06.0 AVR 2002 Paroxysmal ventricular tachycardia (Chronic) I47.2 Atrial flutter (Chronic) I48.92 AV junction ablation 03/01 Cardiomyopathy in disease classified elsewhere (Chronic) I43 High triglycerides (Chronic) E78.1 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, stage III (moderate) (Chronic) N18.3 Benign essential hypertension (Chronic) I10 Gout M10.9 MRSA (methicillin resistant Staphylococcus aureus) infection A49.02 MIA (obstructive sleep apnea) G47.33 Anemia D64.9 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 Diffuse large b-cell lymphoma, extranodal and solid organ sites C83.39 GI bleed K92.2 GI bleed K92.2 History of DVT (deep vein thrombosis) Z86.718 TIA (transient ischemic attack) G45.9 Allergies No Known Allergies Allergy (Verified 10/27/20 11:28) Home Medications: Ambulatory Orders Medication Instructions Recorded RX: Multivitamins,Therapeutic 1 tab PO DAILY 06/06/16 [Multivitamin] RX: Allopurinol [Zyloprim] 100 mg PO DAILYCM 08/29/17 RX: Calcitriol [Rocaltrol] 0.25 mg PO DAILY 08/29/17 doxycycline hyclate 100 mg capsule 100 mg PO BID #180 cap 01/18/18 ferrous sulfate 325 mg (65 mg 65 mg PO DAILY tab 11/21/18 iron) tablet cycloBENZAPRine HCl [Flexeril] 10 mg PO QHS 12/31/18 tamsulosin 0.4 mg capsule 0.4 mg PO DAILY #90 cap 01/29/20 RX: Sodium Bicarbonate 650 mg PO BID 07/13/20 Pantoprazole Sodium [Protonix] 40 mg PO DAILY 09/14/20 RX: Carvedilol 3.125 mg PO BID 10/27/20 RX: Furosemide [Lasix] 20 mg PO DAILY 10/27/20 RX: Isosorbide Mononitrate 30 mg PO DAILY 10/27/20 [Isosorbide Mononitrate ER] Warfarin Sodium [Jantoven] 6 mg PO DAILY 10/27/20 Warfarin [Coumadin (PBKC)] 1 mg PO DAILY 10/27/20 Surgical History: Surgical History (Last Reviewed 07/13/20 @ 13:30 by Linh Redman) History of aortic valve replacement (Chronic) Onset Date: ~08/2003 Z95.2 1987 mechanical aortic valve replacement; AVR pericardial tissue valve in 2002 History of mitral valve repair (Resolved) Onset Date: ~08/2003 Z98.890 with pericardial tissue valve History of appendectomy Z98.890, Z90.49 History of cholecystectomy Z98.890, Z90.49 History of evacuation of hematoma Z98.890 03/02/16 History of mechanical aortic valve replacement Onset Date: ~1986 Z95.2 dual chamber pacemaker implantation Onset Date: ~10/2010 Reimplantation of pacemaker 05/26/16 BiV PPM Surgical History: appendectomy, cholecystectomy, pacemaker implantation, - - History of aortic valve replacement ?3-mechanical, mitral valve repair, surgery for removal of rectus muscle hematoma Psychiatric History: No pertinent psych hx Smoking Status: Never smoker Tobacco Use: Non-smoker Alcohol: None Drugs: None - *Family History Maternal Family History: Family History (Last Reviewed 07/13/20 @ 13:30 by Linh Redman) Father CAD (coronary artery disease) Brother CAD (coronary artery disease) Mother Diabetes Sister Breast cancer Diabetes Sister Cancer Diabetes History Items: Diabetes Paternal Family History: Family History (Last Reviewed 07/13/20 @ 13:30 by Linh Redman) Father CAD (coronary artery disease) Brother CAD (coronary artery disease) Mother Diabetes Sister Breast cancer Diabetes Sister Cancer Diabetes History Items: Heart Disease Sibling Family History: Family History (Last Reviewed 07/13/20 @ 13:30 by Linh Redman) Father CAD (coronary artery disease) Brother CAD (coronary artery disease) Mother Diabetes Sister Breast cancer Diabetes Sister Cancer Diabetes History Items: Cancer - breast cancer x2 sisters Review of Systems Constitutional: Reports: Weakness, Fatigue. Denies: Anorexia, Chills, Fever, Malaise, Weight Change Eyes: Denies: Blurred vision, Cataracts, Conjunctivae Inflammation, Pain, Redness HEENT: Denies: Difficulty Hearing, Difficulty Swallowing, Head Aches, Hearing Changes, Sinus Congestion, Sinus Drainage Cardiovascular: Denies: Chest Pain, Claudication, Orthopnea, Palpitations, Paroxysmal Noc. Dyspnea Respiratory: Denies: Cough, Shortness of Breath, Shortness of breath at rest, Shortness of breath upon exertion, Sputum production Gastrointestinal: Denies: Abdominal Pain, Hematemesis, Hematochezia, Nausea, Vomiting Genitourinary: Denies: Dysuria, Frequency, Incontinence, Nocturia Musculoskeletal: Denies: Joint Pain, Joint stiffness, Joint swelling, Joint Tenderness Skin: Denies: Rash, Wounds Neurological: Denies: Difficulty swallowing, Focal weakness, Numbness, Tingling Psychiatric: Denies: Anxiety, Depression, Homicidal Ideations, Suicidal Ideations Hematologic/ Lymphatic: Denies: Easy Bruising, Easy Bleeding VTE Information - Inpt Only VTE Present on Admission: No VTE Pharm Prophylaxis ordered?: Yes Patient Problems: Active and Suspected Problems (Last Reviewed 07/13/20 @ 13:30 by Linh Redman) GI bleed (Acute) History of diffuse large B-cell lymphoma (Acute) - Physical Exam Vitals/I&O's: Vital Signs Temp Pulse Resp BP Pulse Ox 96.8 F L 76 16 120/48 L 99 10/27/20 11:25 10/27/20 12:21 10/27/20 11:25 10/27/20 12:21 10/27/20 11:25 Oxygen Delivery Method Room Air Weight: 86.183 kg Body Mass Index (BMI) 29.7 General: Alert, Oriented x3, Cooperative, No apparent distress HEENT: Atraumatic, PERRLA, EOMI, Normocephalic Oral: Moist Mucosa Neck: Supple Lungs: Clear to auscultation, - - mid-sternal scar Cardiovascular: Regular rate, Regular Rhythm, Normal S1, Normal S2, No murmurs Abdomen: Bowel Sounds Present, Soft, Non Tender, Non-Distended, No Hepato-splenomegaly, - - multiple scars over the abdomen Extremities: No edema Skin: No rashes Musculoskeletal: No Tenderness to Palpation of Joints or Extremities Lymphatic: No Cervical, Supraclavicular, or Inguinal Adenopathy Neurological: Cranial nerves II-XII grossly intact, Neuro grossly intact Psych/Mental Status: Normal Affect, Appropriate Microbiology Past 72 Hours 10/27/20 12:14 Stool Stool Occult Blood (SANDRA) - Final Occult Blood Positive Laboratory Results 10/27/20 12:15: WBC 4.4, RBC 2.81 L, Hgb 9.1 L, Hct 28.2 L, MCV 100.4 H, MCH 32.4 H, MCHC 32.3, RDW Std Deviation 56.4 H, RDW Coeff of Jennifer 15.2 H, Plt Count 130 L, MPV 10.3, Immature Gran % (Auto) 0.500, Neut % (Auto) 65.5, Lymph % (Auto) 19.1, Wetzel % (Auto) 13.8 H, Eos % (Auto) 0.9, Baso % (Auto) 0.2, Absolute Neuts (auto) 2.9, Absolute Lymphs (auto) 0.83, Nucleated RBC % 0 10/27/20 12:15: Sodium 142, Potassium 4.6, Chloride 110 H, Carbon Dioxide 26.0, Anion Gap 6, BUN 64 H, Creatinine 3.74 H, Estim Creat Clear Calc 16.94, Est GFR (MDRD) Af Amer 21 L, Est GFR (MDRD) Non-Af 17 L, BUN/Creatinine Ratio 17.1, Glucose 97, Calcium 9.0, Troponin I 0.075 H 10/27/20 12:15: PT 29.7 H, INR 2.9 10/27/20 12:15: Blood Type Pending, Antibody Screen Pending Current Medications Sodium Chloride () 1,000 mls @ 125 mls/hr IV .Q8H [facility] Last Admin: 10/27/20 12:20 Dose: 125 mls/hr Documented by: Assessment/Plan All Active Problems (Last Reviewed 07/13/20 @ 13:30 by Linh Redman) GI bleed (Acute) Iron deficiency (Acute) History of mitral valve repair (Resolved ~08/2003) Hematochezia (Acute) History of diffuse large B-cell lymphoma (Acute) Syncope and collapse (Acute) Shortness of breath (Acute) Other chest pain (Acute) Abdominal hernia (Resolved) Endocarditis due to Staphylococcus (Resolved) Hemoccult positive stool (Resolved) Mass of anterior abdominal wall (Resolved) Rectus sheath hematoma (Resolved) Sepsis (Resolved) 1. Acute GI bleed, likely related to ischemic colitis Patient had a colonoscopy in [facility] in July 2020 showed a focal area of ischemic colitis INR is therapeutic at 2.[address] Russo, would manage patient conservatively, Gentle IV fluids, trend H&H's, type and screen 2. Status post mechanical aortic valve/mitral valve repair, on Coumadin INR is 2.9, patient has a current GI bleed Discussed with patient's primary lens molder, Dr. Grullon, okay to hold Coumadin INRs in the future would need to be around lower end of range- (2.0-3.0) We will trend INRs, hold Coumadin 3. Hypertension/status post pacemaker/AICD/paroxysmal ventricular tachycardia, all remain stable Continue on carvedilol, isosorbide, 4. Non-Hodgkin's lymphoma, follows with oncology 5. DVT prophylaxis - INR is therapeutic at 2.9 6. CODE STATUS: full code I discussed goals of care and explained in details the various types of CODE STATUS-full code, DNR CCA, DNR CC. Patient wants all aggressive measures. He chose full code. Time spent discussing CODE STATUS 18 minutes Inpatient E&M: 96940 Init Hosp L3 Procedures: 83153 Advncd Care Plan 30 Min
--- NOTE | 2020-10-27 18:31 | CON.PCM_ITS ---
- Consult Date of Consult: 10/27/20 - Reason for Consult REFERRING PHYSICIAN: I was asked to see patient by Dr. Hodgson CHIEF COMPLAINT: Consult (Consult Blood in stool) HPI: The patient is a pleasant 70 year old male who presents with complaint of rectal bleeding and feeling of fatigue. He is found in the [facility] ED to have Hgb of 9, he usually has an Hgb of 11. He had undergone recent colonoscopy on 08/06/2020 with findings of friability of entire right colon with no discrete site of bleeding with multiple biopsies revealing no pathology. I thought that it may be ischemic colitis by gross examination. He does have calcific plaques of the aorta noted on previous CT scans. He had a colonoscopy on 06/20/18, no abnormalities except for contact bleeding/friability of mucosa of right colon. He has noted rectal bleeding for the past week, continuously, he stated that after the colonoscopy in July he had no rectal bleeding for weeks. He denies weight loss. Denies constipation or diarrhea. He denies abdominal pain. He denies family history of colon cancer. He notes no appetite changes. PAST MEDICAL HISTORY Aortic valve disorders History of diffuse B cell NH lymphoma in remission Hemorrhoidal disease GERD (gastroesophageal reflux disease) HTN (hypertension), benign Hyperlipidemia 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 stage III Obstructive sleep apnea PAST SURGICAL HISTORY APPENDECTOMY 1969 COLONOSCOPY 09/18/2018, 08/06/2020 EGD 09/05/2018 INSER DUNBAR PACER XVENOUS ATRIAL 2002 INSERT/REPLACE TEMP PACEMAKER 2016 Cholecystectomy, lap 2003 Evacuation of abdominal wall hematoma and subsequent wound care 2016 Permanent Pacemaker, replacement 2009 aortic valve replacement, [facility] main 1986 Aortic valve replacement, MECHANICAL/mu 2002 MEDICATIONS- calcitriol (ROCALTROL) 0.25 mcg capsule carvedilol (COREG) 6.25 mg tablet cyclobenzaprine (FLEXERIL) 10 mg tablet furosemide (LASIX) 20 mg tablet rfarin (COUMADIN) 7.5 mg ORAL tablet allopurinol (ZYLOPRIM) [address] (PROTONIX) 40 mg tablet Ramipril (ALTACE) 10 mg ORAL tablet colestipol (COLESTID) 5 gram ORAL packet diltiazem CD (CARDIZEM CD) 120 mg ORAL 24 hr capsule Acetaminophen 500 mg ORAL Cap sotalol (SOTALOL AF) 160 mg ORAL tablet niacin 500 mg ORAL CR capsule Aspirin 81 mg ORAL Tab omeprazole (PRILOSEC) 20 mg ORAL capsule ALLERGIES: Patient has no known allergies. PERSONAL HISTORY: TOB - never ETOH - none Drug use - never FAMILY HISTORY Sister x 2 - breast cancer, diabetes Mother diabetes Father CAD Brother CAD Paternal grandfather CAD Paternal aunt CAD Paternal uncle CAD REVIEW OF SYSTEMS: Constitutional: Denies: Anorexia, Chills, Fever, Night Sweats, Malaise, Weight Change Eyes: Denies: Blurred vision, Cataracts, Conjunctivae Inflammation, Double vision, Drainage HEENT: Denies: Difficulty Swallowing, Dysphasia, Ear Pain, Eye Pain, Hearing Changes, Nasal bleeding, Nasal Congestion, Post Nasal Drip Cardiovascular: has mechanical heart valve, Denies: Chest Pain, Claudication, Chest Pressure, Chest Tightness, Edema, Heaviness, Orthopnea, Palpitations, Paroxysmal Noc. Dyspnea Respiratory: Denies: Cough, Hemoptysis, Pleuritic Pain, Shortness of Breath, Shortness of breath at rest, Shortness of breath upon exertion, Sputum production, Wheezing Gastrointestinal: See HPI Genitourinary: Denies: Dysuria, Frequency, Hematuria, Hesitancy, Urgency Neurological: denies seizures, denies recent CVA Psych: denies hallucinations PHYSICAL EXAMINATION: General: The patient is 70 year old male, well nourished, well hydrated in no acute distress. The patient is oriented to time, place, and person. VITALS: Pulse 74, temperature 36.2 ?C (97.2 ?F), temperature source Temporal Artery, weight 90.5 kg (199 lb 9.6 oz), SpO2 99 %. Head ? Normocephalic. EOM intact with sclera clear and no icterus noted. Mouth with mucus membranes moist. Neck - supple with no jugular venous distention noted. Trachea is midline. Lungs ? clear to auscultation. Normal breath sounds. No rales/rhonchi/wheezing noted. No labored breathing noted, such as retractions. No cough heard. Heart ? normal S1 and S2 auscultated. No rubs/clicks/murmurs noted. Regular rate. Abdomen ? soft and benign. Normal bowel sounds. Large midline abdominal incision with scarring due to probable open wound healing by secondary intention. Difficult to determine if any masses or organomegaly due to body habitus. Extremities ? no calf tenderness noted. No pitting edema noted. Skin ? normal skin integrity. Neurological ? gait normal, no focal deficits noted. Psych ? calm and appropriate IMPRESSION: rectal bleeding, anemia, COVID positive PLAN: I have discussed the above with the patient. At this point in time, given that he had recent colonoscopy in Jul of this year, I do not believe that a colonoscopy would be of much benefit. Also given that his BUN/Creat are elevated, a colon cleansing preparation may be harmful. In previous colonoscopies, there was no specific area of bleeding noted in the colon (thus bleeding can't be controlled endoscopically) - it was diffuse friability in the right colon. Alternate option may be right hemicolectomy if area continues to bleed - but this alternative would be a last resort. I have recommended d/c aspirin, and avoid NSAIDs, such as naproxyn, ibuprofen, e tc. Continue to follow up and observe stability of blood count. I would recommend discontinuing coumadin (or ensuring that the INR is not too high), it seems that he notes rectal bleeding when his INR is too elevated (for him). Patient seems to have had multiple complications on coumadin - right colon bleeding, abdominal wall hematoma - an alternative should be considered, if feasible. He can be on a clear liquid diet. Will follow patient with you.
[2020-10-27 19:06] LABS: Hematocrit 27.4 % (40-54); Hemoglobin 8.7 g/dL (13.0-16.5)
[2020-10-27] MEDS: 0.9% Saline Lock 10 ML Syringe IV (21:12)
[2020-10-27] MEDS: Carvedilol 3.125 MG TABLET PO (21:21)
[2020-10-27] MEDS: Sodium Bicarbonate 650 MG Tablet PO (21:21)
[2020-10-27] MEDS: cycloBENZAPRine HCl 10 MG Tablet PO (21:21)
[2020-10-28] VITALS (11 sets, daily range): BP systolic 107–141; BP diastolic 48–57; PULSE 70–75; RESP 18–20; TEMP 36.3–36.9; O2SAT 96
[2020-10-28 00:29] LABS: Hematocrit 25.8 % (40-54); Hemoglobin 8.5 g/dL (13.0-16.5)
[2020-10-28 06:51] LABS: Absolute Lymphocyte Count 0.97 X10^3/uL (0.83-4.51); Absolute Neutrophil Count 2.3 X10^3/uL (2.0-7.7); Basophil# 0.01 X10^3/uL; Basophil% 0.3 % (0-1); Eosinophil# 0.06 X10^3/uL; Eosinophils% 1.6 % (0-5); Hematocrit 25.9 % (40-54); Hemoglobin 8.3 g/dL (13.0-16.5); Lymphocyte # 0.97 X10^3/ul (4.0); Lymphocyte % 25.1 % (19-41); Mean Corpuscular Hgb 31.6 pg (27.0-32.0); Mean Corpuscular Volume 98.5 fL (80-94); Mean Platelet Vol. 11.3 fl (6.2-12.0); Monocyte# 0.52 X10^3/uL; Monocyte% 13.5 % (0-10); NRBC Flagged by Analyzer 0 % (0-5); Neutrophil # 2.29 X10^3/uL (2.7-7.7); Neutrophil % 59.2 % (47-70); Platelet Count 128 K/mm3 (150-450); RBC Distribution Width CV 15.1 % (11.6-14.6); RBC Distribution Width SD 55.4 fl (35.1-43.9); Red Blood Count 2.63 M/mm3 (4.6-6.2); White Blood Count 3.9 K/mm3 (4.4-11.0)
[2020-10-28 06:59] LABS: International Normalized Ratio 2.9; Prothrombin Time (Protime)PT. 29.8 SECONDS (11.7-14.9)
[2020-10-28 07:23] LABS: ALB/GLOB Ratio 0.8 RATIO (0.9-2.4); AST(SGOT) 46 U/L (15-37); Alanine Aminotransfer ALT/SGPT 23 U/L (16-61); Alkaline Phosphatase 177 U/L (45-117); Anion Gap 6 (5-15); BUN 59 mg/dL (7-18); BUN/Creat Ratio 18.2 RATIO (10-20); Calcium,Total 8.3 mg/dL (8.5-10.1); Chloride 109 mmol/L (98-107); Creatinine, Serum 3.24 mg/dL (0.70-1.30); EST Glomerular Filtration Rate 20 mL/min (>60); Est Glom Filt Rate - Afr Amer 24 mL/min (>60); Estimated Creatinine Clearance 19.55 ml/min; Globulin 3.8 g/dL (2.2-4.2); Glucose 85 mg/dL (74-106); Potassium 4.3 mmol/L (3.5-5.1); Protein, Total 6.8 g/dL (6.4-8.2); Sodium Level 139 mmol/L (136-145)
[2020-10-28] MEDS: 0.9% Saline Lock 10 ML Syringe IV ×3 (08:46→19:49)
[2020-10-28] MEDS: Sodium Bicarbonate 650 MG Tablet PO ×2 (08:47→19:49)
[2020-10-28] MEDS: Isosorbide Mononitrate 30 MG Tablet PO (08:47)
[2020-10-28] MEDS: Allopurinol 100 MG Tablet PO (08:47)
[2020-10-28] MEDS: Calcitriol 0.25 MCG Capsule PO (08:47)
[2020-10-28] MEDS: Carvedilol 3.125 MG TABLET PO ×2 (08:47→19:49)
--- NOTE | 2020-10-28 11:46 | PCM.PN.SRG ---
Patient Problems: Active and Suspected Problems (Last Reviewed 07/13/20 @ 13:30 by Linh Redman) GI bleed (Acute) History of diffuse large B-cell lymphoma (Acute) Subjective: patient still with bloody bowel movements INR unchanged from yesterday Hgb down to 8.3 Patient denies abdominal pain - Physical Exam Vitals/I&O's: Vital Signs Temp Pulse Resp BP Pulse Ox 98.4 F 70 20 H 138/57 H 96 10/28/20 06:02 10/28/20 10:44 10/28/20 06:02 10/28/20 06:02 10/28/20 10:59 Oxygen Delivery Method Room Air Weight: 85.2 kg Body Mass Index (BMI) 29.9 Intake and Output for Last 24 Hours 10/26/20 10/27/20 10/28/20 23:59 23:59 23:59 Intake Total 1294.58 / 1294.58 487.25 / 487.25 Balance 1294.58 / 1294.58 487.25 / 487.25 General: Alert, Oriented x3 Neck: Supple Lungs: Normal air movement Abdomen: Soft Microbiology Past 72 Hours 10/27/20 13:42 Mucosa - Nose SARS-CoV-2 Antigen (Rapid) - Final SARS-CoV-2 (COVID 19) 10/27/20 12:14 Stool Stool Occult Blood (SANDRA) - Final Occult Blood Positive Laboratory Results 10/27/20 12:15: WBC 4.4, RBC 2.81 L, Hgb 9.1 L, Hct 28.2 L, MCV 100.4 H, MCH 32.4 H, MCHC 32.3, RDW Std Deviation 56.4 H, RDW Coeff of Jennifer 15.2 H, Plt Count 130 L, MPV 10.3, Immature Gran % (Auto) 0.500, Neut % (Auto) 65.5, Lymph % (Auto) 19.1, [place] % (Auto) 13.8 H, Eos % (Auto) 0.9, Baso % (Auto) 0.2, Absolute Neuts (auto) 2.9, Absolute Lymphs (auto) 0.83, Nucleated RBC % 0 10/27/20 12:15: Sodium 142, Potassium 4.6, Chloride 110 H, Carbon Dioxide 26.0, Anion Gap 6, BUN 64 H, Creatinine 3.74 H, Estim Creat Clear Calc 16.94, Est GFR (MDRD) Af Amer 21 L, Est GFR (MDRD) Non-Af 17 L, BUN/Creatinine Ratio 17.1, Glucose 97, Calcium 9.0, Troponin I 0.075 H 10/27/20 12:15: PT 29.7 H, INR 2.9 10/27/20 12:15: Blood Type A POSITIVE, Antibody Screen NEGATIVE 10/27/20 18:55: Hgb 8.7 L, Hct 27.4 L 10/28/20 00:15: Hgb 8.5 L, Hct 25.8 L 10/28/20 06:06: WBC 3.9 L, RBC 2.63 L, Hgb 8.3 L, Hct 25.9 L, MCV 98.5 H, MCH 31.6, MCHC 32.0, RDW Std Deviation 55.4 H, RDW Coeff of Jennifer 15.1 H, Plt Count 128 L, MPV 11.3, Immature Gran % (Auto) 0.300, Neut % (Auto) 59.2, Lymph % (Auto) 25.1, Kingsbury % (Auto) 13.5 H, Eos % (Auto) 1.6, Baso % (Auto) 0.3, Absolute Neuts (auto) 2.3, Absolute Lymphs (auto) 0.97, Nucleated RBC % 0 10/28/20 06:06: PT 29.8 H, INR 2.9 10/28/20 06:06: Sodium 139, Potassium 4.3, Chloride 109 H, Carbon Dioxide 24.0, Anion Gap 6, BUN 59 H, Creatinine 3.24 H, Estim Creat Clear Calc 19.55, Est GFR (MDRD) Af Amer 24 L, Est GFR (MDRD) Non-Af 20 L, BUN/Creatinine Ratio 18.2, Glucose 85, Calcium 8.3 L, Total Bilirubin 0.80, AST 46 H, ALT 23, Alkaline Phosphatase 177 H, Total Protein 6.8, Albumin 3.0 L, Globulin 3.8, Albumin/Globulin Ratio 0.8 L Current Medications Acetaminophen (Acetaminophen 325 Mg Tablet) 650 mg PO Q6H PRN PRN PRN Reason: Pain Score 1-10/Temp > 100.7 F Albuterol Sulfate (Albuterol 2.5 Mg/3 Ml Vial.Neb.) 2.5 mg INHALATION Q2H PRN PRN PRN Reason: SOB/Wheezing Allopurinol (Allopurinol 100 Mg Tablet) 100 mg PO DAILY [facility] Last Admin: 10/28/20 08:47 Dose: 100 mg Documented by: Calcitriol (Calcitriol 0.25 Mcg Capsule) 0.25 mcg PO DAILY [facility] Last Admin: 10/28/20 08:47 Dose: 0.25 mcg Documented by: Carvedilol (Carvedilol 3.125 Mg Tablet) 3.125 mg PO BID [facility] Last Admin: 10/28/20 08:47 Dose: 3.125 mg Documented by: Cyclobenzaprine HCl (Cyclobenzaprine Hcl 10 Mg Tablet) 10 mg PO QHS [facility] Last Admin: 10/27/20 21:21 Dose: 10 mg Documented by: Ferrous Sulfate (Ferrous Sulfate 325 Mg Tablet) 325 mg PO 1700 [facility] Pantoprazole Sodium 40 mg/ (Sodium Chloride) 110 mls @ 330 mls/hr IV Q12 [facility] Last Infusion: 10/28/20 10:30 Dose: Infused Documented by: Sodium Chloride () 250 mls @ 15 mls/hr IV .[id number] PRN PRN Reason: Saline Flush Last Infusion: 10/28/20 02:47 Dose: 0 mls/hr Documented by: Sodium Chloride () 250 mls @ 15 mls/hr IV .[id number] PRN PRN Reason: Additional IVPB Infusion Isosorbide Mononitrate (Isosorbide Mononitrate 30 Mg Tablet) 30 mg PO DAILY [facility] Last Admin: 10/28/20 08:47 Dose: 30 mg Documented by: Ondansetron HCl (Ondansetron 4 Mg/2 Ml Vial) 4 mg IV Q8H PRN PRN PRN Reason: NAUSEA/VOMITING Sodium Bicarbonate (Sodium Bicarbonate 650 Mg Tablet) 650 mg PO BID [facility] Last Admin: 10/28/20 08:47 Dose: 650 mg Documented by: Sodium Chloride (0.9% Saline Lock 10 Ml Syringe) 10 - 40 ml IV UD PRN PRN Reason: SALINE FLUSH Last Admin: 10/28/20 10:06 Dose: 10 ml Documented by: Tamsulosin HCl (Tamsulosin Hcl 0.4 Mg Capsule) 0.4 mg PO SUPPER [facility] Medical Necessity - Tobacco Use Smoking Status: Never smoker Tobacco Use: Non-smoker Assessment/Plan All Active Problems (Last Reviewed 07/13/20 @ 13:30 by Linh Redman) GI bleed (Acute) Iron deficiency (Acute) History of mitral valve repair (Resolved ~08/2003) Hematochezia (Acute) History of diffuse large B-cell lymphoma (Acute) Syncope and collapse (Acute) Shortness of breath (Acute) Other chest pain (Acute) Abdominal hernia (Resolved) Endocarditis due to Staphylococcus (Resolved) Hemoccult positive stool (Resolved) Mass of anterior abdominal wall (Resolved) Rectus sheath hematoma (Resolved) Sepsis (Resolved) Impression: lower GI bleed - known diffuse right colon friability/bleeding - cannot be controlled endoscopically Plan: Continue present therapy, rec'd discontinue coumadin and change to another anticoagulant if possible
--- NOTE | 2020-10-28 14:08 | PN_ITS ---
<Mason Campos - Last Filed: 10/28/20 14:08> Patient Problems: Active and Suspected Problems (Last Updated 10/28/20 @ 14:[address] Madelin Miranda MD) GI bleed (Acute) Reason for Visit: Bloody stool Subjective: Ongoing blood in stool this AM. Pt denies SOB, LH, dizziness. He denies symptoms of covid including any cough, SOB, fever, chills. Vitals/I&O's: Vital Signs Temp Pulse Resp BP Pulse Ox 98.5 F 70 20 H 108/49 L 96 10/28/20 12:28 10/28/20 13:53 10/28/20 12:28 10/28/20 12:28 10/28/20 12:28 Oxygen Delivery Method Room Air Weight: 187 lb 13.341 oz Body Mass Index (BMI) 29.9 Intake and Output for Last 24 Hours 10/26/20 10/27/20 10/28/20 23:59 23:59 23:59 Intake Total 1294.58 / 1294.58 487.25 / 487.25 Balance 1294.58 / 1294.58 487.25 / 487.25 General: Alert, Oriented x3, Cooperative HEENT: Atraumatic, PERRLA, EOMI, Normocephalic Neck: Supple, No JVD, Negative Carotid Bruits Lungs: Clear to auscultation, Normal air movement Cardiovascular: Regular rate, No murmurs Abdomen: Bowel Sounds Present, Soft, Non Tender Extremities: No edema, Capillary Refill Less than 3 Seconds Skin: No rashes, No breakdown Musculoskeletal: No Tenderness to Palpation of Joints or Extremities Neurological: Cranial nerves II-XII grossly intact Psych/Mental Status: Normal Affect, Appropriate, Alert and oriented to time, place, person, mood and affect Microbiology Past 72 Hours 10/27/20 13:42 Mucosa - Nose SARS-CoV-2 Antigen (Rapid) - Final SARS-CoV-2 (COVID 19) 10/27/20 12:14 Stool Stool Occult Blood (SANDRA) - Final Occult Blood Positive Laboratory Results 10/27/20 18:55: Hgb 8.7 L, Hct 27.4 L 10/28/20 00:15: Hgb 8.5 L, Hct 25.8 L 10/28/20 06:06: WBC 3.9 L, RBC 2.63 L, Hgb 8.3 L, Hct 25.9 L, MCV 98.5 H, MCH 31.6, MCHC 32.0, RDW Std Deviation 55.4 H, RDW Coeff of Jennifer 15.1 H, Plt Count 128 L, MPV 11.3, Immature Gran % (Auto) 0.300, Neut % (Auto) 59.2, Lymph % (Auto) 25.1, Clare % (Auto) 13.5 H, Eos % (Auto) 1.6, Baso % (Auto) 0.3, Absolute Neuts (auto) 2.3, Absolute Lymphs (auto) 0.97, Nucleated RBC % 0 10/28/20 06:06: PT 29.8 H, INR 2.9 10/28/20 06:06: Sodium 139, Potassium 4.3, Chloride 109 H, Carbon Dioxide 24.0, Anion Gap 6, BUN 59 H, Creatinine 3.24 H, Estim Creat Clear Calc 19.55, Est GFR (MDRD) Af Amer 24 L, Est GFR (MDRD) Non-Af 20 L, BUN/Creatinine Ratio 18.2, Glucose 85, Calcium 8.3 L, Total Bilirubin 0.80, AST 46 H, ALT 23, Alkaline Phosphatase 177 H, Total Protein 6.8, Albumin 3.0 L, Globulin 3.8, Albumin/Globulin Ratio 0.8 L Current Medications Acetaminophen (Acetaminophen 325 Mg Tablet) 650 mg PO Q6H PRN PRN PRN Reason: Pain Score 1-10/Temp > 100.7 F Albuterol Sulfate (Albuterol 2.5 Mg/3 Ml Vial.Neb.) 2.5 mg INHALATION Q2H PRN PRN PRN Reason: SOB/Wheezing Allopurinol (Allopurinol 100 Mg Tablet) 100 mg PO DAILY [facility] Last Admin: 10/28/20 08:47 Dose: 100 mg Documented by: Calcitriol (Calcitriol 0.25 Mcg Capsule) 0.25 mcg PO DAILY [facility] Last Admin: 10/28/20 08:47 Dose: 0.25 mcg Documented by: Carvedilol (Carvedilol 3.125 Mg Tablet) 3.125 mg PO BID [facility] Last Admin: 10/28/20 08:47 Dose: 3.125 mg Documented by: Cyclobenzaprine HCl (Cyclobenzaprine Hcl 10 Mg Tablet) 10 mg PO QHS [facility] Last Admin: 10/27/20 21:21 Dose: 10 mg Documented by: Ferrous Sulfate (Ferrous Sulfate 325 Mg Tablet) 325 mg PO 1700 [facility] Pantoprazole Sodium 40 mg/ (Sodium Chloride) 110 mls @ 330 mls/hr IV Q12 [facility] Last Infusion: 10/28/20 10:30 Dose: Infused Documented by: Sodium Chloride () 250 mls @ 15 mls/hr IV .[id number] PRN PRN Reason: Saline Flush Last Infusion: 10/28/20 02:47 Dose: 0 mls/hr Documented by: Sodium Chloride () 250 mls @ 15 mls/hr IV .[id number] PRN PRN Reason: Additional IVPB Infusion Isosorbide Mononitrate (Isosorbide Mononitrate 30 Mg Tablet) 30 mg PO DAILY [facility] Last Admin: 10/28/20 08:47 Dose: 30 mg Documented by: Ondansetron HCl (Ondansetron 4 Mg/2 Ml Vial) 4 mg IV Q8H PRN PRN PRN Reason: NAUSEA/VOMITING Sodium Bicarbonate (Sodium Bicarbonate 650 Mg Tablet) 650 mg PO BID [facility] Last Admin: 10/28/20 08:47 Dose: 650 mg Documented by: Sodium Chloride (0.9% Saline Lock 10 Ml Syringe) 10 - 40 ml IV UD PRN PRN Reason: SALINE FLUSH Last Admin: 10/28/20 10:06 Dose: 10 ml Documented by: Tamsulosin HCl (Tamsulosin Hcl 0.4 Mg Capsule) 0.4 mg PO SUPPER [facility] STROKE Vital Signs/Narrative: Vital Signs Temp Pulse Resp BP Pulse Ox 10/28/20 13:53 70 10/28/20 12:28 98.5 F 75 20 H 108/49 L 96 10/28/20 10:59 96 10/28/20 10:44 70 10/28/20 10:16 70 Medical Necessity - Tobacco Use Smoking Status: Never smoker Tobacco Use: Non-smoker Assessment/Plan All Active Problems (Last Updated 10/28/20 @ 14:[address] Madelin Miranda MD) GI bleed (Acute) Iron deficiency (Acute) Hematochezia (Acute) 1. Acute blood loss anemia 2/2 presumed lower GI bleed- Dr. Russo following. Colonoscopy in jul showed friable colon and concerns for UC. No plans for repeat colonoscopy at this time. Continue to hold warfarin. INR is still therapeutic. Ongoing blood in stool today. Continue to monitor. IV protonix continued. Some mild thrombocytopenia as well. 2. Hx Mechanical aortic valve - Admitting physician confirmed with Dr. Grullon (pts primary cardio) that it is ok to hold warfarin currently. Will need to confirm with Dr. Grullon for timing of resumption. Pts INR is therapeutic at this time. Goal 2-3. 3. Hx Mitral valve repair 4. Hx NHL, B cell lymphoma 5. CKDIII - improving. Pt states this is due to having a fungal infection following valve repair with cadaver valve in the . He was treated with amphotericin at the time. 6. Hx A flutter - rate controlled. Continue Coreg. 7. Covid 19 - positive test and recent exposure, however pt is asymptomatic. He will remain in isolation. 8. Indeterminate troponin - no symptoms. will repeat x1 to trend. DVT ppx: SCDs This patient was seen by Mason Campos PA-C under the supervision of Dr. Miranda/ <Madelin Miranda E - Last Filed: 10/29/20 12:02> Vitals/I&O's: Vital Signs Temp Pulse Resp BP Pulse Ox 98.5 F 70 20 H 108/49 L 96 10/28/20 12:28 10/28/20 13:53 10/28/20 12:28 10/28/20 12:28 10/28/20 12:28 Oxygen Delivery Method Room Air Weight: 187 lb 13.341 oz Body Mass Index (BMI) 29.9 Intake and Output for Last 24 Hours 10/26/20 10/27/20 10/28/20 23:59 23:59 23:59 Intake Total 1294.58 / 1294.58 487.25 / 487.25 Balance 1294.58 / 1294.58 487.25 / 487.25 Microbiology Past 72 Hours 10/27/20 13:42 Mucosa - Nose SARS-CoV-2 Antigen (Rapid) - Final SARS-CoV-2 (COVID 19) 10/27/20 12:14 Stool Stool Occult Blood (SANDRA) - Final Occult Blood Positive Laboratory Results 10/27/20 18:55: Hgb 8.7 L, Hct 27.4 L 10/28/20 00:15: Hgb 8.5 L, Hct 25.8 L 10/28/20 06:06: WBC 3.9 L, RBC 2.63 L, Hgb 8.3 L, Hct 25.9 L, MCV 98.5 H, MCH 31.6, MCHC 32.0, RDW Std Deviation 55.4 H, RDW Coeff of Jennifer 15.1 H, Plt Count 128 L, MPV 11.3, Immature Gran % (Auto) 0.300, Neut % (Auto) 59.2, Lymph % (Auto) 25.1, Clare % (Auto) 13.5 H, Eos % (Auto) 1.6, Baso % (Auto) 0.3, Absolute Neuts (auto) 2.3, Absolute Lymphs (auto) 0.97, Nucleated RBC % 0 10/28/20 06:06: PT 29.8 H, INR 2.9 10/28/20 06:06: Sodium 139, Potassium 4.3, Chloride 109 H, Carbon Dioxide 24.0, Anion Gap 6, BUN 59 H, Creatinine 3.24 H, Estim Creat Clear Calc 19.55, Est GFR (MDRD) Af Amer 24 L, Est GFR (MDRD) Non-Af 20 L, BUN/Creatinine Ratio 18.2, Glucose 85, Calcium 8.3 L, Total Bilirubin 0.80, AST 46 H, ALT 23, Alkaline Phosphatase 177 H, Total Protein 6.8, Albumin 3.0 L, Globulin 3.8, Albumin/Globulin Ratio 0.8 L Current Medications Acetaminophen (Acetaminophen 325 Mg Tablet) 650 mg PO Q6H PRN PRN PRN Reason: Pain Score 1-10/Temp > 100.7 F Albuterol Sulfate (Albuterol 2.5 Mg/3 Ml Vial.Neb.) 2.5 mg INHALATION Q2H PRN PRN PRN Reason: SOB/Wheezing Allopurinol (Allopurinol 100 Mg Tablet) 100 mg PO DAILY [facility] Last Admin: 10/28/20 08:47 Dose: 100 mg Documented by: Calcitriol (Calcitriol 0.25 Mcg Capsule) 0.25 mcg PO DAILY [facility] Last Admin: 10/28/20 08:47 Dose: 0.25 mcg Documented by: Carvedilol (Carvedilol 3.125 Mg Tablet) 3.125 mg PO BID [facility] Last Admin: 10/28/20 08:47 Dose: 3.125 mg Documented by: Cyclobenzaprine HCl (Cyclobenzaprine Hcl 10 Mg Tablet) 10 mg PO QHS [facility] Last Admin: 10/27/20 21:21 Dose: 10 mg Documented by: Ferrous Sulfate (Ferrous Sulfate 325 Mg Tablet) 325 mg PO 1700 [facility] Pantoprazole Sodium 40 mg/ (Sodium Chloride) 110 mls @ 330 mls/hr IV Q12 [facility] Last Infusion: 10/28/20 10:30 Dose: Infused Documented by: Sodium Chloride () 250 mls @ 15 mls/hr IV .[id number] PRN PRN Reason: Saline Flush Last Infusion: 10/28/20 02:47 Dose: 0 mls/hr Documented by: Sodium Chloride () 250 mls @ 15 mls/hr IV .[id number] PRN PRN Reason: Additional IVPB Infusion Isosorbide Mononitrate (Isosorbide Mononitrate 30 Mg Tablet) 30 mg PO DAILY [facility] Last Admin: 10/28/20 08:47 Dose: 30 mg Documented by: Ondansetron HCl (Ondansetron 4 Mg/2 Ml Vial) 4 mg IV Q8H PRN PRN PRN Reason: NAUSEA/VOMITING Sodium Bicarbonate (Sodium Bicarbonate 650 Mg Tablet) 650 mg PO BID [facility] Last Admin: 10/28/20 08:47 Dose: 650 mg Documented by: Sodium Chloride (0.9% Saline Lock 10 Ml Syringe) 10 - 40 ml IV UD PRN PRN Reason: SALINE FLUSH Last Admin: 10/28/20 10:06 Dose: 10 ml Documented by: Tamsulosin HCl (Tamsulosin Hcl 0.4 Mg Capsule) 0.4 mg PO SUPPER [facility] STROKE Vital Signs/Narrative: Vital Signs Temp Pulse Resp BP Pulse Ox 10/28/20 13:53 70 10/28/20 12:28 98.5 F 75 20 H 108/49 L 96 10/28/20 10:59 96 10/28/20 10:44 70 Assessment/Plan Hospitalist Note: I am seeing this patient in conjunction with Mason Campos. I independently seen and examined the patient. Progress note above, laboratory data and imaging studies reviewed and I concur with above treatment plan. Today, patient still having rectal bleeding. Denied abdominal pain, nausea or vomiting. Reported mild chronic cough, no shortness of breath. No fever or chills. - Physical Exam General: Alert, Oriented x3, Cooperative, No apparent distress. HEENT: Atraumatic, PERRLA, EOMI. Neck: Supple, No JVD, Negative Carotid Bruits, Trachea Midline, Thyroid Normal. Lungs: Clear to auscultation, Normal air movement, diminished, no rhonchi, No wheeze, No rales. Cardiovascular: Regular rate, Regular Rhythm, Normal S1, Normal S2, PMI Normal, metallic click. Abdomen: Bowel Sounds Present, Soft, Non Tender, Non-Distended, No Hepato- splenomegaly. Extremities: No clubbing, No cyanosis, No edema Skin: No rashes, No breakdown Neurological: Cranial nerves are intact, neuro grossly intact Vital Signs are stable. Assessment and plan: #1 acute blood loss anemia: Secondary to lower GI bleed. Patient does have a history of chronic anemia, baseline hemoglobin has been around anywhere between 8 to 11 g/dL. Today's hemoglobin is 8.6 g/dL. Patient still actively bleeding. Vital signs are stable. General surgery consulted. Reportedly, patient had colonoscopy in July, which revealed friable COLON. General surgery thinks that there is no need to repeat colonoscopy this time. Plan to monitor H&H, transfuse if hemoglobin is than 8 g/dL. #2 history of mechanical heart valve replacement: Patient was on Coumadin, INR admission was 2.9. Coumadin held for now after discussion with cardiology. Plan to keep holding Coumadin, repeat INR tomorrow morning. #3 COVID-19 infection: Patient tested positive for COVID-19 antigens. He has no symptoms apart from chronic cough, nothing new. He has been afebrile, on room air. He exposed to his [id number] who has Covid around 3 weeks ago. Plan to monitor. #4 other chronic medical problems: Stable, continue current medications as above. This note was generated with ApplyMapation software. It may contain incorrect words, spelling, and punctuation that were not noted in checking the note before signing. Inpatient E&M: 42059 Subs Hosp L2
--- NOTE | 2020-10-28 15:00 | CASEMGMT ---
GIO HEARN called patient in room for initial transition planning/care coordination assessment. GIO HEARN introduced self and role at [facility]. Patient alert and oriented. Patient willing to participate in assessment and is able to answer all questions appropriately. Care providers, pharmacy, and demographics verified. Patient wishes to discharge home, denies need for home health at this time. Patient states he has no further needs or concerns at this time. CM to follow for discharge planning needs that may arise. PCP: Demetrio Specialists: Mitchel, broadcast producer; Johnny, oncology; Kvng, nephrology Preferred Pharmacy: [facility] Insurance: [facility], [employer] Prescription Benefit: yes Living Will/HPOA: yes, Bre Amador HPOA LNOK: Living Arrangements: Patient lives with in single story home with 3 steps to enter the home. Patient states he is independent at home. Transportation: DME/HHC: Patient states he has cane, walker, shower chair, raised toilet, grab bars. GIO HEARN review DME companies with patient and would like [facility] for possible oxygen at discharge. Disposition Plan: Patient to discharge home with family support and follow-up plans in place. Will monitor for need for home oxygen. Erica MARIE, RN, CM
[2020-10-28] MEDS: Ferrous Sulfate 325 MG Tablet PO (16:20)
[2020-10-28] MEDS: Tamsulosin HCl 0.4 MG Capsule PO (17:44)
[2020-10-28 18:36] LABS: Hematocrit 27.4 % (40-54); Hemoglobin 8.6 g/dL (13.0-16.5)
[2020-10-28] MEDS: cycloBENZAPRine HCl 10 MG Tablet PO (19:49)
[2020-10-29 02:35] VITALS: BP 127/58; PULSE 72; RESP 17; TEMP 36.9; O2SAT 97
[2020-10-29 03:16] VITALS: PULSE 70
[2020-10-29 06:41] LABS: Absolute Lymphocyte Count 0.87 X10^3/uL (0.83-4.51); Absolute Neutrophil Count 2.4 X10^3/uL (2.0-7.7); Basophil# 0.01 X10^3/uL; Basophil% 0.3 % (0-1); Eosinophil# 0.06 X10^3/uL; Eosinophils% 1.6 % (0-5); Hematocrit 25.4 % (40-54); Lymphocyte # 0.87 X10^3/ul (4.0); Lymphocyte % 22.6 % (19-41); Mean Corp Hgb Conc 31.5 g/dL (32-36); Mean Corpuscular Hgb 31.7 pg (27.0-32.0); Mean Corpuscular Volume 100.8 fL (80-94); Mean Platelet Vol. 11.1 fl (6.2-12.0); Monocyte# 0.54 X10^3/uL; NRBC Flagged by Analyzer 0 % (0-5); Neutrophil # 2.35 X10^3/uL (2.7-7.7); Platelet Count 129 K/mm3 (150-450); RBC Distribution Width CV 15.2 % (11.6-14.6); RBC Distribution Width SD 56.1 fl (35.1-43.9); Red Blood Count 2.52 M/mm3 (4.6-6.2); White Blood Count 3.9 K/mm3 (4.4-11.0)
[2020-10-29 06:51] LABS: Prothrombin Time (Protime)PT. 30.5 SECONDS (11.7-14.9)
[2020-10-29 07:04] LABS: Anion Gap 5 (5-15); BUN 54 mg/dL (7-18); BUN/Creat Ratio 17.1 RATIO (10-20); Chloride 109 mmol/L (98-107); Creatinine, Serum 3.16 mg/dL (0.70-1.30); EST Glomerular Filtration Rate 21 mL/min (>60); Est Glom Filt Rate - Afr Amer 25 mL/min (>60); Estimated Creatinine Clearance 20.05 ml/min; Glucose 89 mg/dL (74-106); Potassium 4.4 mmol/L (3.5-5.1); Sodium Level 139 mmol/L (136-145)
[2020-10-29] MEDS: Allopurinol 100 MG Tablet PO (08:55)
[2020-10-29] MEDS: Isosorbide Mononitrate 30 MG Tablet PO (08:55)
[2020-10-29] MEDS: Calcitriol 0.25 MCG Capsule PO (08:55)
[2020-10-29] MEDS: 0.9% Saline Lock 10 ML Syringe IV (08:55)
[2020-10-29] MEDS: Sodium Bicarbonate 650 MG Tablet PO (08:55)
[2020-10-29] MEDS: Carvedilol 3.125 MG TABLET PO (08:55)
[2020-10-29 09:00] VITALS: BP 130/57; PULSE 71; RESP 18; TEMP 36.8; O2SAT 96
[2020-10-29 14:03] LABS: Hematocrit 24.8 % (40-54); Hemoglobin 7.9 g/dL (13.0-16.5)
--- NOTE | 2020-10-29 14:22 | DCINST_ITS ---
- Discharge Diagnoses Current Active Problems: Current Active and Chronic Problems (Last Updated 10/28/20 @ 14:[address] Madelin Miranda MD) GI bleed (Acute) History of aortic valve replacement (Chronic ~08/2003) 1987 mechanical aortic valve replacement; AVR pericardial tissue valve in 2002 History of mitral valve repair (Chronic ~08/2003) with pericardial tissue valve History of diffuse large B-cell lymphoma (Chronic) Pure hypercholesterolemia (Chronic) History of non-Hodgkin's lymphoma (Chronic) Biventricular cardiac pacemaker in situ (Chronic ~05/26/16) Atrial flutter (Chronic) AV junction ablation 03/01 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, stage III (moderate) (Chronic) Benign essential hypertension (Chronic) You will use the following diet at home:: Cardiac Your food should be the consistency of: Regular Discharge Activity: Return to Normal Activity Weight Bearing Status: Weight bearing as tolerated Call your doctor if you observe: Fever of 101 or Higher, Shortness of breath, Dizziness, Fainting spells, Chest pain, Increased palpitations (irregular heartbeat), Uncontrolled pain Instructions: Coronavirus Disease 2019 (COVID-19): Caring for Yourself or Others, Preventing the Spread of Infection Understanding Isolation Procedures Additional Instructions: Continue isolation precautions for at least 5 to 7 days, wear facemask all the time, while your hands frequently. Allergies/Adverse Reactions: Allergies No Known Allergies Allergy (Verified 10/27/20 11:28) Medications to take at Discharge Multivitamins,Therapeutic [Multivitamin] 1 tab PO DAILY 06/06/16 Allopurinol [Zyloprim] 100 mg PO DAILYCM 08/29/17 Calcitriol [Rocaltrol] 0.25 mg PO DAILY 08/29/17 doxycycline hyclate 100 mg capsule 100 mg PO BID #180 cap 01/18/18 ferrous sulfate 325 mg (65 mg iron) tablet 65 mg PO DAILY tab 11/21/18 cycloBENZAPRine HCl [Flexeril] 10 mg PO QHS 12/31/18 tamsulosin 0.4 mg capsule 0.4 mg PO DAILY #90 cap 01/29/20 Sodium Bicarbonate 650 mg PO BID 07/13/20 Pantoprazole Sodium [Protonix] 40 mg PO DAILY 09/14/20 Carvedilol 3.125 mg PO BID 10/27/20 Furosemide [Lasix] 20 mg PO DAILY 10/27/20 Isosorbide Mononitrate [Isosorbide Mononitrate ER] 30 mg PO DAILY 10/27/20 Warfarin Sodium [Jantoven] 6 mg PO DAILY 10/27/20 Warfarin [Coumadin] 1 mg PO DAILY 10/27/20 Primary Care Physician: Vinny Atkinson MD [Primary Care Provider] - Please follow up with your Primary Care Physician in: 1 week. Test Results: Test results from this visit will be discussed in further detail at your follow- up appointment, if applicable. Please Follow Up With: Jeff Grullon MD When: 1-2 weeks.
--- NOTE | 2020-10-29 14:24 | DS.PCM_ITS ---
Discharge Date and Diagnosis - Problem List Patient Problems: Active and Suspected Problems (Last Updated 10/28/20 @ 14:[address] Madelin Miranda MD) GI bleed (Acute) Date of Admission: 10/27/20 Date of Discharge: 10/29/20 - Primary Discharge Diagnosis Acute Problems: Active Problems (Last Updated 10/28/20 @ 14:[address] Madelin Miranda MD) #1 acute on chronic blood loss anemia. #2 lower GI bleed. #3 COVID-19 infection. #4 history of mechanical aortic valve replacement, on Coumadin. - Secondary Discharge Diagnosis Chronic Problems: Chronic Problems (Last Updated 10/28/20 @ 14:[address] 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 Russo, general surgery. Operations: None Procedures: None Summary of Care Provided: Patient seen and examined on the day of discharge and the patient was stable on discharge home. He denied any more rectal bleeding. He denied cough or shortness of breath. He denied fever or chills. His vital signs were stable. The patient is a 70 year old M presented to the emergency room because of mild shortness of breath and rectal bleeding. His main complaint was rectal bleeding. Patient had a history of aortic valve replacement with mechanical valve and he has been on Coumadin. He does have a history of chronic anemia and during this hospital stay, hemoglobin went down as low as 7.9 g/dL. There was no indication for blood transfusion. General surgery consulted and Dr. Hassan recommended that there is no indication to repeat the colonoscopy as patient had colonoscopy done as outpatient on July, that revealed friable colonic mucosa. H&H were monitored. During this hospital stay, Coumadin was held after agreement from cardiology and INR remained above 2.5. I discussed with cardiology as well about continuation of Coumadin and recommended that Coumadin should be continued and cannot be stopped for now. Patient stop rectal bleeding and his vital signs been stable. He tested positive for COVID-19 antigens. Patient states that he exposed to his [id number] who have COVID-19 around 3 weeks ago. He remained on room air and he remained afebrile. He had no significant shortness of breath, no cough or sputum production. After discussion with infectious disease, there was no indication to treat COVID-19. His vital signs remained stable. He remained on room air and he remained afebr ile. Patient discharged home in a stable medical condition, instructed to start taking Coumadin tomorrow as his INR on the day of discharge was 3, instructed to continue isolation precautions for 5 to 7 days, will facemask all times and wash hands frequently, recommended from with PCP in 1 week and follow-up with cardiology in 1 to 2 weeks. Patient Problems: Active and Suspected Problems (Last Updated 10/28/20 @ 14:[address] Madelin Miranda MD) GI bleed (Acute) - Physical Exam Vitals/I&O's: Vital Signs Temp Pulse Resp BP Pulse Ox 98.3 F 71 18 130/57 H 96 10/29/20 09:00 10/29/20 09:00 10/29/20 09:00 10/29/20 09:00 10/29/20 09:00 Oxygen Delivery Method Room Air Weight: 188 lb 4.396 oz Body Mass Index (BMI) 29.9 Intake and Output for Last 24 Hours 10/27/20 10/28/20 10/29/20 23:59 23:59 23:59 Intake Total 1294.58 / 1294.58 937.25 / 937.25 110 / 110 Output Total 400 / 400 Balance 1294.58 / 1294.58 937.25 / 937.25 -290 / -290 General: Alert, Oriented x3, Cooperative, No apparent distress HEENT: Atraumatic, PERRLA, EOMI, Normocephalic Oral: Moist Mucosa, No Gingival or Mucosal Lesions/ Ulcerations Neck: Supple, No JVD, Negative Carotid Bruits, Trachea Midline, Thyroid Normal Size and Texture Lungs: Clear to auscultation, Normal air movement, No rhonchi, No wheeze, No rales Cardiovascular: Regular rate, Regular Rhythm, Normal S1, Normal S2, - - Mechanical click. Abdomen: Bowel Sounds Present, Soft, Non Tender, Non-Distended, No Hepato- splenomegaly Extremities: No clubbing, No cyanosis, No edema Skin: No rashes, No breakdown Lymphatic: No Cervical, Supraclavicular, or Inguinal Adenopathy Neurological: Cranial nerves II-XII grossly intact, Neuro grossly intact Psych/Mental Status: Normal Affect, Appropriate Microbiology Past 72 Hours 10/27/20 13:42 Mucosa - Nose SARS-CoV-2 Antigen (Rapid) - Final SARS-CoV-2 (COVID 19) 10/27/20 12:14 Stool Stool Occult Blood (SANDRA) - Final Occult Blood Positive Laboratory Results 10/28/20 06:06: Troponin I 0.086 H 10/28/20 18:20: Hgb 8.6 L, Hct 27.4 L 10/29/20 06:05: PT 30.5 H, INR 3.0 10/29/20 06:05: WBC 3.9 L, RBC 2.52 L, Hgb 8.0 L, Hct 25.4 L, MCV 100.8 H, MCH 31.7, MCHC 31.5 L, RDW Std Deviation 56.1 H, RDW Coeff of Jennifer 15.2 H, Plt Count 129 L, MPV 11.1, Immature Gran % (Auto) 0.500, Neut % (Auto) 61.0, Lymph % (Auto) 22.6, Chester % (Auto) 14.0 H, Eos % (Auto) 1.6, Baso % (Auto) 0.3, Absolute Neuts (auto) 2.4, Absolute Lymphs (auto) 0.87, Nucleated RBC % 0 10/29/20 06:05: Sodium 139, Potassium 4.4, Chloride 109 H, Carbon Dioxide 25.0, Anion Gap 5, BUN 54 H, Creatinine 3.16 H, Estim Creat Clear Calc 20.05, Est GFR (MDRD) Af Amer 25 L, Est GFR (MDRD) Non-Af 21 L, BUN/Creatinine Ratio 17.1, Gl ucose 89, Calcium 8.0 L 10/29/20 13:47: Hgb 7.9 L, Hct 24.8 L Current Medications Acetaminophen (Acetaminophen 325 Mg Tablet) 650 mg PO Q6H PRN PRN PRN Reason: Pain Score 1-10/Temp > 100.7 F Albuterol Sulfate (Albuterol 2.5 Mg/3 Ml Vial.Neb.) 2.5 mg INHALATION Q2H PRN PRN PRN Reason: SOB/Wheezing Allopurinol (Allopurinol 100 Mg Tablet) 100 mg PO DAILY [facility] Last Admin: 10/29/20 08:55 Dose: 100 mg Documented by: Calcitriol (Calcitriol 0.25 Mcg Capsule) 0.25 mcg PO DAILY [facility] Last Admin: 10/29/20 08:55 Dose: 0.25 mcg Documented by: Carvedilol (Carvedilol 3.125 Mg Tablet) 3.125 mg PO BID [facility] Last Admin: 10/29/20 08:55 Dose: 3.125 mg Documented by: Cyclobenzaprine HCl (Cyclobenzaprine Hcl 10 Mg Tablet) 10 mg PO QHS [facility] Last Admin: 10/28/20 19:49 Dose: 10 mg Documented by: Ferrous Sulfate (Ferrous Sulfate 325 Mg Tablet) 325 mg PO 1700 [facility] Last Admin: 10/28/20 16:20 Dose: 325 mg Documented by: Pantoprazole Sodium 40 mg/ (Sodium Chloride) 110 mls @ 330 mls/hr IV Q12 [facility] Last Infusion: 10/29/20 09:20 Dose: Infused Documented by: Sodium Chloride () 250 mls @ 15 mls/hr IV .[id number] PRN PRN Reason: Saline Flush Last Infusion: 10/29/20 09:20 Dose: 15 mls/hr Documented by: Sodium Chloride () 250 mls @ 15 mls/hr IV .[id number] PRN PRN Reason: Additional IVPB Infusion Isosorbide Mononitrate (Isosorbide Mononitrate 30 Mg Tablet) 30 mg PO DAILY [facility] Last Admin: 10/29/20 08:55 Dose: 30 mg Documented by: Ondansetron HCl (Ondansetron 4 Mg/2 Ml Vial) 4 mg IV Q8H PRN PRN PRN Reason: NAUSEA/VOMITING Sodium Bicarbonate (Sodium Bicarbonate 650 Mg Tablet) 650 mg PO BID [facility] Last Admin: 10/29/20 08:55 Dose: 650 mg Documented by: Sodium Chloride (0.9% Saline Lock 10 Ml Syringe) 10 - 40 ml IV UD PRN PRN Reason: SALINE FLUSH Last Admin: 10/29/20 08:55 Dose: 10 ml Documented by: Tamsulosin HCl (Tamsulosin Hcl 0.4 Mg Capsule) 0.4 mg PO SUPPER [facility] Last Admin: 10/28/20 17:44 Dose: 0.4 mg Documented by: Discharge Activity: Return to Normal Activity Weight Bearing Status: Weight bearing as tolerated Call your doctor if you observe: Fever of 101 or Higher, Shortness of breath, Dizziness, Fainting spells, Chest pain, Increased palpitations (irregular heartbeat), Uncontrolled pain Home Medications: Medications to take at Discharge Multivitamins,Therapeutic [Multivitamin] 1 tab PO DAILY 06/06/16 Allopurinol [Zyloprim] 100 mg PO DAILYCM 08/29/17 Calcitriol [Rocaltrol] 0.25 mg PO DAILY 08/29/17 doxycycline hyclate 100 mg capsule 100 mg PO BID #180 cap 01/18/18 ferrous sulfate 325 mg (65 mg iron) tablet 65 mg PO DAILY tab 11/21/18 cycloBENZAPRine HCl [Flexeril] 10 mg PO QHS 12/31/18 tamsulosin 0.4 mg capsule 0.4 mg PO DAILY #90 cap 01/29/20 Sodium Bicarbonate 650 mg PO BID 07/13/20 Pantoprazole Sodium [Protonix] 40 mg PO DAILY 09/14/20 Carvedilol 3.125 mg PO BID 10/27/20 Furosemide [Lasix] 20 mg PO DAILY 10/27/20 Isosorbide Mononitrate [Isosorbide Mononitrate ER] 30 mg PO DAILY 10/27/20 Warfarin Sodium [Jantoven] 6 mg PO DAILY 10/27/20 Warfarin [Coumadin] 1 mg PO DAILY 10/27/20 Primary Care Physician: Vinny Atkinson MD [Primary Care Provider] - Please follow up with your Primary Care Physician in: 1 week. Please Follow Up With: Jeff Grullon MD When: 1-2 weeks. Patient Instructions: Coronavirus Disease 2019 (COVID-19): Caring for Yourself or Others, Preventing the Spread of Infection Understanding Isolation Procedures Disposition: Home Minutes spent on discharge:: 31 Patient Condition:: Stable Medical Necessity - Tobacco Use Smoking Status: Never smoker Tobacco Use: Non-smoker Meaningful Use Info Meaningful Use Diagnoses (Choose all that apply): None applicable Inpatient E&M: 52111 Disch Hosp
[2020-10-29 15:00] VITALS: BP 125/49; PULSE 72; RESP 18; TEMP 36.7; O2SAT 97
--- NOTE | 2020-11-01 13:41 | CASEMGMT ---
RN CM DISCHARGE PHONE CALL DC DATE: 10/30/2020 DC DISPOSITION: Home with oxygen DC DIAGNOSIS: SARS COVID 2 Attempted call to phone. No answer. Angelina LIGHTN RN ACM
== END 2020-10-29 15:05 | disposition home or self-care (01) | DRG 377 ==
LOC: ED 11:50 → PCU 15:12 → MS2 15:13
PROVIDERS: Physician Assistant; Admitting Provider Internal Medicine; Emergency Provider Emergency Medicine; PCP Family Medicine; Visit Provider Hospitalist
DX: K92.1 Melena (principal); U07.1 COVID-19; I47.2 Ventricular tachycardia; D62 Acute posthemorrhagic anemia; C85.90 Non-Hodgkin lymphoma, unspecified, unspecified site; I43 Cardiomyopathy in diseases classified elsewhere; I48.3 Typical atrial flutter; I08.0 Rheumatic disorders of both mitral and aortic valves; I12.9 Hypertensive chronic kidney disease with stage 1 through stage 4 chronic kidney disease, or unspecified chronic kidney disease; N18.30 Chronic kidney disease, stage 3 unspecified; D63.1 Anemia in chronic kidney disease; K63.89 Other specified diseases of intestine; E78.00 Pure hypercholesterolemia, unspecified; Z95.2 Presence of prosthetic heart valve; Z95.0 Presence of cardiac pacemaker; Z86.718 Personal history of other venous thrombosis and embolism; Z86.14 Personal history of Methicillin resistant Staphylococcus aureus infection; Z86.73 Personal history of transient ischemic attack (TIA), and cerebral infarction without residual deficits; Z79.01 Long term (current) use of 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; Z79.899 Other long term (current) drug therapy
CPT/HCPCS: 36415; 80048; 80053; 82274; 84484; 85014; 85018; 85025; 85610; 86850; 86900; 86901; 87426; 93005; 99285; J7030; J7050; A4216

== ENCOUNTER → 2020-11-01 11:22 | Outpatient (CLI) | payer MEDICARE, OTHER, SELFPAY ==
[2020-10-27 17:58] VITALS: BMI 29.9
[2020-11-01 15:51] LABS: International Normalized Ratio 2.5; Prothrombin Time (Protime)PT. 26.4 SECONDS (11.7-14.9)
== END ==
PROVIDERS: PCP Family Medicine; Visit Provider Internal Medicine Cardiovascular Disease
DX: I48.92 Unspecified atrial flutter (principal); Z95.2 Presence of prosthetic heart valve; Z98.890 Other specified postprocedural states; Z79.01 Long term (current) use of 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
CPT/HCPCS: 36415; 85610

== ENCOUNTER → 2020-11-04 11:26 | Outpatient (CLI) | payer MEDICARE, OTHER, SELFPAY ==
[2020-10-27 17:58] VITALS: BMI 29.9
[2020-11-04 15:37] LABS: Absolute Lymphocyte Count 0.89 X10^3/uL (0.83-4.51); Absolute Neutrophil Count 2.7 X10^3/uL (2.0-7.7); Basophil# 0.01 X10^3/uL; Basophil% 0.2 % (0-1); Eosinophil# 0.13 X10^3/uL; Hematocrit 26.5 % (40-54); Hemoglobin 8.4 g/dL (13.0-16.5); Lymphocyte # 0.89 X10^3/ul (4.0); Lymphocyte % 20.8 % (19-41); Mean Corp Hgb Conc 31.7 g/dL (32-36); Mean Corpuscular Hgb 31.5 pg (27.0-32.0); Mean Corpuscular Volume 99.3 fL (80-94); Mean Platelet Vol. 10.4 fl (6.2-12.0); Monocyte# 0.52 X10^3/uL; Monocyte% 12.2 % (0-10); NRBC Flagged by Analyzer 0 % (0-5); Neutrophil % 63.3 % (47-70); Platelet Count 146 K/mm3 (150-450); RBC Distribution Width CV 14.9 % (11.6-14.6); RBC Distribution Width SD 54.1 fl (35.1-43.9); Red Blood Count 2.67 M/mm3 (4.6-6.2); White Blood Count 4.3 K/mm3 (4.4-11.0)
[2020-11-04 15:54] LABS: Prothrombin Time (Protime)PT. 36.2 SECONDS (11.7-14.9)
[2020-11-04 15:58] LABS: International Normalized Ratio 3.7
[2020-11-04 16:09] LABS: ALB/GLOB Ratio 0.7 RATIO (0.9-2.4); AST(SGOT) 37 U/L (15-37); Alanine Aminotransfer ALT/SGPT 23 U/L (16-61); Albumin, Serum 3.2 g/dL (3.2-5.0); Alkaline Phosphatase 209 U/L (45-117); Anion Gap 4 (5-15); BUN 51 mg/dL (7-18); Calcium,Total 9.2 mg/dL (8.5-10.1); Chloride 109 mmol/L (98-107); Creatinine, Serum 2.84 mg/dL (0.70-1.30); EST Glomerular Filtration Rate 23 mL/min (>60); Est Glom Filt Rate - Afr Amer 28 mL/min (>60); Globulin 4.3 g/dL (2.2-4.2); Glucose 86 mg/dL (74-106); Potassium 4.4 mmol/L (3.5-5.1); Protein, Total 7.5 g/dL (6.4-8.2); Sodium Level 140 mmol/L (136-145)
== END ==
LOC: LAB.FUTURE 11:27 → LAB 11-29 09:56
PROVIDERS: PCP Internal Medicine Cardiovascular Disease; Visit Provider Family Medicine
DX: K92.2 Gastrointestinal hemorrhage, unspecified (principal); D64.9 Anemia, unspecified; Z79.01 Long term (current) use of 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
CPT/HCPCS: 36415; 80053; 85025; 85610

== ENCOUNTER → 2020-11-08 10:45 | Outpatient (CLI) | payer MEDICARE, OTHER, SELFPAY ==
[2020-10-27 17:58] VITALS: BMI 29.9
[2020-11-08 11:28] LABS: Prothrombin Time (Protime)PT. 46.6 SECONDS (11.7-14.9)
== END ==
PROVIDERS: PCP Internal Medicine Cardiovascular Disease; Referring Provider Internal Medicine Cardiovascular Disease; Visit Provider Internal Medicine Cardiovascular Disease
DX: I48.92 Unspecified atrial flutter (principal); Z95.2 Presence of prosthetic heart valve; Z79.01 Long term (current) use of 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; Z98.890 Other specified postprocedural states
CPT/HCPCS: 36415; 85610

== ENCOUNTER 2020-11-15 09:15 | Outpatient (RCR) | payer MEDICARE, OTHER, SELFPAY ==
[2020-09-24 10:27] VITALS: BMI 31.4
[2020-10-27 17:58] VITALS: BMI 29.9
[2020-11-11 09:13] LABS: Prothrombin Time (Protime)PT. 39.2 SECONDS (11.7-14.9)
[2020-11-15 10:24] LABS: International Normalized Ratio 2.6
== END 2020-11-15 18:00 | disposition home or self-care (01) ==
LOC: LAB 09:15
PROVIDERS: Family Provider Family Medicine; PCP Internal Medicine Cardiovascular Disease; Referring Provider Internal Medicine Cardiovascular Disease; Visit Provider Internal Medicine Cardiovascular Disease
DX: Z95.2 Presence of prosthetic heart valve (principal); Z79.01 Long term (current) use of 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
CPT/HCPCS: 36415; 85610

== ENCOUNTER 2020-12-13 11:08 | Outpatient (RCR) | payer MEDICARE, OTHER, SELFPAY ==
[2020-10-27 17:58] VITALS: BMI 29.9
[2020-11-22 12:51] LABS: International Normalized Ratio 2.3; Prothrombin Time (Protime)PT. 25.1 SECONDS (11.7-14.9)
[2020-11-29 10:35] LABS: Hematocrit 32.5 % (40-54); Hemoglobin 10.2 g/dL (13.0-16.5); Mean Corp Hgb Conc 31.4 g/dL (32-36); Mean Corpuscular Hgb 31.2 pg (27.0-32.0); Mean Corpuscular Volume 99.4 fL (80-94); Mean Platelet Vol. 10.2 fl (6.2-12.0); Platelet Count 180 K/mm3 (150-450); RBC Distribution Width CV 16.6 % (11.6-14.6); RBC Distribution Width SD 61.4 fl (35.1-43.9); Red Blood Count 3.27 M/mm3 (4.6-6.2); White Blood Count 6.6 K/mm3 (4.4-11.0)
[2020-11-29 10:42] LABS: Prothrombin Time (Protime)PT. 22.3 SECONDS (11.7-14.9)
[2020-11-29 11:06] LABS: Albumin, Serum 3.5 g/dL (3.2-5.0); BUN 38 mg/dL (7-18); BUN/Creat Ratio 14.6 RATIO (10-20); Calcium,Total 9.3 mg/dL (8.5-10.1); Chloride 106 mmol/L (98-107); EST Glomerular Filtration Rate 26 mL/min (>60); Est Glom Filt Rate - Afr Amer 31 mL/min (>60); Glucose 103 mg/dL (74-106); Phosphorus 3.7 mg/dL (2.5-4.9); Potassium 4.3 mmol/L (3.5-5.1); Sodium Level 138 mmol/L (136-145)
[2020-12-06 10:52] LABS: International Normalized Ratio 1.8
[2020-12-06 17:28] LABS: Absolute Lymphocyte Count 1.34 X10^3/uL (0.83-4.51); Basophil# 0.05 X10^3/uL; Basophil% 0.8 % (0-1); Eosinophil# 0.44 X10^3/uL; Eosinophils% 6.7 % (0-5); Hematocrit 33.3 % (40-54); Hemoglobin 10.6 g/dL (13.0-16.5); Lymphocyte # 1.34 X10^3/ul (4.0); Lymphocyte % 20.5 % (19-41); Mean Corp Hgb Conc 31.8 g/dL (32-36); Mean Corpuscular Hgb 31.2 pg (27.0-32.0); Mean Corpuscular Volume 97.9 fL (80-94); Mean Platelet Vol. 11.8 fl (6.2-12.0); Monocyte% 10.7 % (0-10); NRBC Flagged by Analyzer 0 % (0-5); Neutrophil # 3.99 X10^3/uL (2.7-7.7); Platelet Count 149 K/mm3 (150-450); RBC Distribution Width CV 15.6 % (11.6-14.6); White Blood Count 6.5 K/mm3 (4.4-11.0)
[2020-12-06 18:04] LABS: Vitamin B12 1629 pg/mL (211-911)
[2020-12-06 18:41] LABS: ALB/GLOB Ratio 0.8 RATIO (0.9-2.4); AST(SGOT) 42 U/L (15-37); Alanine Aminotransfer ALT/SGPT 28 U/L (16-61); Albumin, Serum 3.9 g/dL (3.2-5.0); Alkaline Phosphatase 190 U/L (45-117); Anion Gap 6 (5-15); BUN 45 mg/dL (7-18); BUN/Creat Ratio 16.7 RATIO (10-20); Calcium,Total 10.1 mg/dL (8.5-10.1); Chloride 104 mmol/L (98-107); EST Glomerular Filtration Rate 25 mL/min (>60); Est Glom Filt Rate - Afr Amer 30 mL/min (>60); Ferritin 126 ng/mL (26-388); Globulin 4.7 g/dL (2.2-4.2); Glucose 79 mg/dL (74-106); Iron 61 ug/dL (65-175); Iron Binding Capacity,Total 361 ug/dL (250-450); LDH 464 U/L (87-241); PERCENT IRON SATURATION 16.9 % (15.0-55.0); Potassium 4.4 mmol/L (3.5-5.1); Protein, Total 8.6 g/dL (6.4-8.2); Sodium Level 137 mmol/L (136-145); T4 Free Direct 1.77 ng/dL (0.76-1.46); Thyroid Stim Hormone (TSH) 0.01 uIU/mL (0.358-3.74)
[2020-12-13 12:17] LABS: International Normalized Ratio 2.1; Prothrombin Time (Protime)PT. 23.3 SECONDS (11.7-14.9)
== END 2020-12-13 18:00 | disposition home or self-care (01) ==
LOC: LAB 11:08
PROVIDERS: Internal Medicine Medical Oncology; Internal Medicine Nephrology; Family Provider Family Medicine; PCP Family Medicine; Referring Provider Internal Medicine Cardiovascular Disease; Visit Provider Internal Medicine Cardiovascular Disease
DX: D64.9 Anemia, unspecified (principal); Z95.2 Presence of prosthetic heart valve; K92.2 Gastrointestinal hemorrhage, unspecified; N18.9 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, unspecified; G25.0 Essential tremor; Z79.899 Other long term (current) drug therapy
CPT/HCPCS: 36415; 80053; 80069; 82607; 82728; 82746; 83540; 83550; 83615; 83970; 84439; 84443; 85025; 85027; 85610

== ENCOUNTER 2021-01-06 10:22 | Outpatient (RCR) | payer MEDICARE, OTHER, SELFPAY ==
[2020-12-14 14:51] VITALS: BMI 29.0
[2020-12-23 10:51] LABS: International Normalized Ratio 2.7; Prothrombin Time (Protime)PT. 28.6 SECONDS (11.7-14.9)
[2021-01-06 11:39] LABS: International Normalized Ratio 2.4; Prothrombin Time (Protime)PT. 25.6 SECONDS (11.7-14.9)
== END 2021-01-06 18:00 | disposition home or self-care (01) ==
LOC: LAB 10:22
PROVIDERS: Family Provider Family Medicine; PCP Family Medicine; Referring Provider Internal Medicine Cardiovascular Disease; Visit Provider Internal Medicine Cardiovascular Disease
DX: Z95.2 Presence of prosthetic heart valve (principal); Z79.899 Other long term (current) drug therapy
CPT/HCPCS: 36415; 85610

== ENCOUNTER 2021-02-11 10:30 | Outpatient (RCR) | payer MEDICARE, OTHER, SELFPAY ==
[2020-12-14 14:51] VITALS: BMI 29.0
[2021-01-21 09:28] LABS: International Normalized Ratio 2.7; Prothrombin Time (Protime)PT. 28.1 SECONDS (11.7-14.9)
[2021-02-11 11:47] LABS: Prothrombin Time (Protime)PT. 22.3 SECONDS (11.7-14.9)
== END 2021-02-11 18:00 | disposition home or self-care (01) ==
LOC: LAB 10:30
PROVIDERS: Family Provider Family Medicine; PCP Family Medicine; Referring Provider Internal Medicine Cardiovascular Disease; Visit Provider Internal Medicine Cardiovascular Disease
DX: Z95.2 Presence of prosthetic heart valve (principal); Z79.899 Other long term (current) drug therapy
CPT/HCPCS: 36415; 85610

== ENCOUNTER 2021-03-16 09:45 | Outpatient (RCR) | payer MEDICARE, OTHER, SELFPAY ==
[2020-12-14 14:51] VITALS: BMI 29.0
[2021-02-18 09:33] LABS: International Normalized Ratio 2.4; Prothrombin Time (Protime)PT. 25.4 SECONDS (11.7-14.9)
[2021-02-25 10:47] LABS: International Normalized Ratio 2.7; Prothrombin Time (Protime)PT. 27.9 SECONDS (11.7-14.9)
[2021-03-16 10:25] LABS: International Normalized Ratio 2.3; Prothrombin Time (Protime)PT. 24.3 SECONDS (11.7-14.9)
== END 2021-03-16 18:00 | disposition home or self-care (01) ==
LOC: LAB 09:45
PROVIDERS: Family Provider Family Medicine; PCP Family Medicine; Referring Provider Internal Medicine Cardiovascular Disease; Visit Provider Internal Medicine Cardiovascular Disease
DX: Z79.01 Long term (current) use of 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 (principal); Z95.2 Presence of prosthetic heart valve
CPT/HCPCS: 36415; 85610

== ENCOUNTER → 2021-03-17 20:36 | Outpatient (CLI) | payer MEDICARE, OTHER, SELFPAY ==
[2021-03-11 07:38] VITALS: BMI 29.4
== END ==
PROVIDERS: PCP Family Medicine; Referring Provider Internal Medicine Critical Care Medicine; Visit Provider Internal Medicine Critical Care Medicine
DX: G47.33 Obstructive sleep apnea (adult) (pediatric) (principal)
CPT/HCPCS: 95811

== ENCOUNTER → 2021-03-24 10:28 | Outpatient (CLI) | payer MEDICARE, OTHER, SELFPAY ==
[2021-03-24 09:45] VITALS: BMI 29.4
[2021-03-24 13:03] LABS: AST(SGOT) 51 U/L (15-37); Alanine Aminotransfer ALT/SGPT 29 U/L (16-61); Albumin, Serum 3.8 g/dL (3.2-5.0); Alkaline Phosphatase 186 U/L (45-117); Bilirubin, Direct 0.57 mg/dL (0.00-0.30); Free T3 2.3 pg/mL (2.18-3.98); Globulin 4.3 g/dL (2.2-4.2); Protein, Total 8.1 g/dL (6.4-8.2); T4 Free Direct 1.04 ng/dL (0.76-1.46); Thyroid Stim Hormone (TSH) 9.23 uIU/mL (0.358-3.74)
[2021-03-25 20:15] LABS: Thyroid Peroxidase AB < 9 IU/mL (0-34)
== END ==
PROVIDERS: PCP Family Medicine; Referring Provider Internal Medicine Endocrinology, Diabetes & Metabolism; Visit Provider Internal Medicine Endocrinology, Diabetes & Metabolism
DX: I10 Essential (primary) hypertension (principal); E05.90 Thyrotoxicosis, unspecified without thyrotoxic crisis or storm
CPT/HCPCS: 36415; 80076; 84439; 84443; 84481; 86376

== ENCOUNTER → 2021-03-25 09:21 | Outpatient (CLI) | payer MEDICARE, OTHER, SELFPAY ==
[2021-03-11 07:38] VITALS: BMI 29.4
[2021-03-24 09:45] VITALS: BMI 29.4
--- NOTE | 2021-03-26 08:53 | PFTCOMP ---
INTRODUCTION: The patient is a 71-year-old male that presents for pulmonary function studies secondary to a diagnosis of dyspnea. Respiratory therapy reports good patient effort. Bronchodilators were used during testing. INTERPRETATION: Forced expiration spirometry demonstrates no evidence of a large airways obstructive ventilatory defect. There was no significant response to aerosolized bronchodilators. Spirograms are of good quality and plateau normally. Body plethysmography was performed and reveals a decreased TLC to 4.5 L, 78% of predicted, indicative of a mild restrictive ventilatory impairment. Diffusing capacity by single breath CO is mildly reduced to 65% of predicted. IMPRESSION: Mild restrictive ventilatory impairment with symmetric reduction in diffusing capacity.
== END ==
PROVIDERS: PCP Family Medicine; Referring Provider Internal Medicine Critical Care Medicine; Visit Provider Internal Medicine Critical Care Medicine
DX: R06.00 Dyspnea, unspecified (principal)
CPT/HCPCS: 94060; 94726; 94729

== ENCOUNTER → 2021-03-29 13:47 | Outpatient (CLI) | payer MEDICARE, OTHER, SELFPAY ==
[2021-03-11 07:38] VITALS: BMI 29.4
[2021-03-24 09:45] VITALS: BMI 29.4
[2021-03-29 14:09] VITALS: PULSE 84; PULSE 86; PULSE 87; PULSE 88; PULSE 90; PULSE 92; O2SAT 97; O2SAT 98; O2SAT 99
--- NOTE | 2021-03-29 14:57 | PCM.PSN.6M ---
PSN 6 Minute Walk Test 6 Minute Walk Test 6 Minute Walk Test: 6 Minute Walk Test PSN:6-Minute Walk Test Start: 03/29/21 14:08 Freq: Status: Active Protocol: RESP.6MINW Document 03/29/21 14:09 [facility] (Rec: 03/29/21 14:12 [facility] [id number]) 6 Minute Walk Test Date Performed 03/29/21 Time Performed 13:45 Height 5 ft 7 in Weight: 83.915 kg Weight in Pounds 185.[address]: Dr Min Assistive device used: None Pre-test Oxygen Delivery Method Room Air Pulse Ox (%) 98 Pulse Rate (60-100 beats/min) 84 Dyspnea Karrie Scale (0-10) 0 Exertion Karrie Scale (6-20) 6 1st minute Oxygen Delivery Method Room Air Pulse Ox (%) 99 Pulse Rate (60-100 beats/min) 87 2nd minute Oxygen Delivery Method Room Air Pulse Ox (%) 98 Pulse Rate (60-100 beats/min) 88 3rd minute Oxygen Delivery Method Room Air Pulse Ox (%) 98 Pulse Rate (60-100 beats/min) 88 4th minute Oxygen Delivery Method Room Air Pulse Ox (%) 98 Pulse Rate (60-100 beats/min) 88 5th minute Oxygen Delivery Method Room Air Pulse Ox (%) 99 Pulse Rate (60-100 beats/min) 90 6th minute Oxygen Delivery Method Room Air Pulse Ox (%) 97 Pulse Rate (60-100 beats/min) 92 Dyspnea Karrie Scale (0-10) 3 Exertion Karrie Scale (6-20) 12 Post-test Oxygen Delivery Method Room Air Pulse Ox (%) 97 Pulse Rate (60-100 beats/min) 86 Full Laps Walked 18 Partial Lap, Number of Tiles Walked 7 Total Distance Walked (ft) 1069 Interpretation Interpretation: The patient was able to ambulate 1069 feet over the course of 6 minutes on room air with no assistive devices or breaks. The patient experienced no significant desaturation or tachycardia during testing. These findings are consistent with a normal exercise oximetry. Recommendations Recommendations: No supplemental oxygen is indicated at this time.
== END ==
PROVIDERS: PCP Family Medicine; Referring Provider Internal Medicine Critical Care Medicine; Visit Provider Internal Medicine Critical Care Medicine
DX: R06.00 Dyspnea, unspecified (principal)
CPT/HCPCS: 94618

== ENCOUNTER 2021-03-30 08:37 | Outpatient (RCR) | payer MEDICARE, OTHER, SELFPAY ==
[2021-03-11 07:38] VITALS: BMI 29.4
[2021-03-24 09:45] VITALS: BMI 29.4
[2021-03-30 09:29] LABS: Prothrombin Time (Protime)PT. 30.2 SECONDS (11.7-14.9)
== END 2021-03-30 18:00 | disposition home or self-care (01) ==
LOC: LAB 08:37
PROVIDERS: Family Provider Family Medicine; PCP Family Medicine; Referring Provider Internal Medicine Cardiovascular Disease; Visit Provider Internal Medicine Cardiovascular Disease
DX: Z95.2 Presence of prosthetic heart valve (principal); Z79.01 Long term (current) use of 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
CPT/HCPCS: 36415; 85610

== ENCOUNTER → 2021-04-04 08:26 | Outpatient (CLI) | payer MEDICARE, OTHER, SELFPAY ==
[2021-03-24 09:45] VITALS: BMI 29.4
--- NOTE | 2021-04-04 08:28 | US_ITS ---
STUDY: ABDOMINAL ULTRASOUND REASON FOR EXAM: Male, 71 years old. Elevated LFTs, jaundice TECHNIQUE: Transabdominal ultrasound was performed with real-time and static hart scale imaging. TECHNICAL QUALITY: Adequate. COMPARISON: CT scan from 09/12/2017 FINDINGS: Liver: The liver measures 17.4 cm. There is normal echogenicity of the liver. The bile ducts are within normal limits. There is hepatic color flow. The direction of portal flow is hepatopetal. There is no demonstrated mass lesion. Portal vein measurement: Gallbladder: The patient is status post cholecystectomy. Common Bile Duct (C.B.D.): The common bile duct measures 5.1 mm. Pancreas: Normal size of the head, body and tail of the pancreas. There is increased echogenicity of the pancreas. There is no demonstrated pancreatic mass or cyst. Spleen: There is splenomegaly. The spleen measures 13 cm. Right Kidney: Normal size of the right kidney. The right kidney measures 11.7 x 4.7 x 4.6 cm. Normal renal cortex. The right cortex measures 1.0 cm. There is a simple 4.0 cm cyst. There is no right hydronephrosis. Left Kidney: Normal size of the left kidney. The left kidney measures 11.4 x 4.8 x 4.5 cm. Normal renal cortex. The left cortex measures 1.0 cm. Multiple simple cysts, largest measures 2.5 cm There is no left hydronephrosis. Aorta: Tapers normally I.V.C.: The IVC is patent. There is no ascites. US/Abdomen Complete IMPRESSION: Simple bilateral renal cysts, no specific follow-up needed Nonspecific splenomegaly Previous cholecystectomy Electronically Signed: Garcia Price MD at 10:39 EDT , Service support ,
== END ==
PROVIDERS: PCP Family Medicine; Referring Provider Family Medicine; Visit Provider Family Medicine
DX: R17 Unspecified jaundice (principal); D64.9 Anemia, unspecified; N18.9 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, unspecified
CPT/HCPCS: 76700

== ENCOUNTER → 2021-04-05 07:14 | Outpatient (CLI) | payer MEDICARE, OTHER, SELFPAY ==
[2021-03-11 07:38] VITALS: BMI 29.4
[2021-03-24 09:45] VITALS: BMI 29.4
[2021-04-05 10:26] LABS: Hematocrit 33.3 % (40-54); Hemoglobin 10.6 g/dL (13.0-16.5); Mean Corp Hgb Conc 31.8 g/dL (32-36); Mean Corpuscular Hgb 32.8 pg (27.0-32.0); Mean Corpuscular Volume 103.1 fL (80-94); Mean Platelet Vol. 12.2 fl (6.2-12.0); Platelet Count 115 K/mm3 (150-450); RBC Distribution Width CV 16.3 % (11.6-14.6); RBC Distribution Width SD 62.4 fl (35.1-43.9); Red Blood Count 3.23 M/mm3 (4.6-6.2); White Blood Count 5.4 K/mm3 (4.4-11.0)
[2021-04-05 10:51] LABS: Albumin, Serum 3.7 g/dL (3.2-5.0); BUN 47 mg/dL (7-18); BUN/Creat Ratio 16.5 RATIO (10-20); Calcium,Total 9.3 mg/dL (8.5-10.1); Chloride 107 mmol/L (98-107); Creatinine, Serum 2.84 mg/dL (0.70-1.30); EST Glomerular Filtration Rate 23 mL/min (>60); Est Glom Filt Rate - Afr Amer 28 mL/min (>60); Glucose 96 mg/dL (74-106); PTHIN 127.8 pg/mL (18.4-80.1); Potassium 4.3 mmol/L (3.5-5.1); Sodium Level 139 mmol/L (136-145)
== END ==
PROVIDERS: PCP Family Medicine; Referring Provider Nurse Practitioner Family; Visit Provider Nurse Practitioner Family
DX: R06.00 Dyspnea, unspecified (principal); I12.9 Hypertensive chronic kidney disease with stage 1 through stage 4 chronic kidney disease, or unspecified chronic kidney disease; N18.4 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, stage 4 (severe); N25.81 Secondary hyperparathyroidism of renal origin; I05.1 Rheumatic mitral insufficiency; I06.0 Rheumatic aortic stenosis; I43 Cardiomyopathy in diseases classified elsewhere; D63.1 Anemia in chronic kidney disease; E78.00 Pure hypercholesterolemia, unspecified; Z95.0 Presence of cardiac pacemaker; Z95.2 Presence of prosthetic heart valve; Z98.890 Other specified postprocedural states
CPT/HCPCS: 36415; 78452; 80069; 83970; 85027; 93017; A9500; A4216; J2785

== ENCOUNTER → 2021-04-06 08:17 | Outpatient (CLI) | payer MEDICARE, OTHER, SELFPAY ==
[2020-12-01 13:00] VITALS: BMI 29.6
[2021-03-24 09:45] VITALS: BMI 29.4
--- NOTE | 2021-04-05 08:51 | STRESSREP_ITS ---
Stress Test Report Date: 04-05-2021 Procedure: Pharmacologic stress nuclear imaging study Indications: Shortness of breath/dyspnea; syncope; cardiac dysrhythmia; status post permanent pacemaker; status post aortic valve replacement; status post mitral valve repair Consent: Per the patient Procedure: The patient underwent pharmacologic (Regadenoson 0.4mg ) evaluation with a peak heart rate of 81 beats per minute (54%predicted maximal heart rate) and a peak blood pressure of 142/64 mmHg. The baseline ECG demonstrated electronic ventricular paced rhythm. The peak pharmacologic ECG demonstrated an electronic ventricular paced rhythm. There were no cardiac dysrhythmias pretest, during pharmacologic infusion, or recovery. There was no complaint of chest discomfort during pharmacologic infusion or recovery. The examination was discontinued secondary to completion of protocol. Impression: 1. Pharmacologic (Regadenoson) evaluation 2. Peak pharmacologic ECG with an electronic ventricular paced rhythm. 3. There were no cardiac dysrhythmias pretest, during pharmacologic infusion, or recovery. 4. Nuclear images pending Myocardial perfusion imaging study: Technique: The patient was injected with 11.8 millicuries of technetium 99m Cardiolite and subsequently rest SPECT Cardiolite nuclear imaging was obtained in the horizontal long, vertical long, and short axis views. The patient underwent pharmacologic (Regadenoson) evaluation with a peak heart rate of 81 beats per minute (54% percent predicted maximal heart rate) and a peak blood pressure of 142/64 mmHg. The patient was injected with 35.0 millicuries of technetium 99m Cardiolite and subsequently stress SPECT Cardiolite nuclear imaging was obtained in the horizontal long, vertical long, and short axis views. A gated Cardiolite study at peak stress was obtained. Interpretation: Rest and stress SPECT Cardiolite nuclear imaging status post realignment, normalization, and attenuation correction demonstrate the appearance of diminished myocardial perfusion/tracer uptake in portions of the distal inferior segments without significant change between rest and stress. There is diminished end systolic thickening and brightening. The gated Cardiolite study demonstrates diminished myocardial thickening and inward wall motion. The reported LVEF is 45%. Impression: 1. Rest and stress SPECT her nuclear imaging demonstrate myocardial perfusion changes potentially compatible with an area of previous myocardial injury/infarction involving portions of the distal inferior segments although soft tissue attenuation/artifact cannot necessarily be excluded with no myocardial perfusion changes considered diagnostic for associated stress-induced myocardial ischemia. 2. The gated Cardiolite study reports an LVEF of 45%. This note was generated with [employer] software. It may contain incorrect words, spelling, and punctuation that were not noted in checking the note before signing.
[2021-04-06 08:55] LABS: Absolute Lymphocyte Count 0.84 X10^3/uL (0.83-4.51); Absolute Neutrophil Count 3.9 X10^3/uL (2.0-7.7); Basophil# 0.03 X10^3/uL; Basophil% 0.5 % (0-1); Eosinophil# 0.26 X10^3/uL; Eosinophils% 4.6 % (0-5); Hematocrit 32.7 % (40-54); Hemoglobin 10.4 g/dL (13.0-16.5); Lymphocyte # 0.84 X10^3/ul (0.83-4.51); Mean Corp Hgb Conc 31.8 g/dL (32-36); Mean Corpuscular Hgb 32.1 pg (27.0-32.0); Mean Corpuscular Volume 100.9 fL (80-94); Mean Platelet Vol. 11.1 fl (6.2-12.0); Monocyte# 0.51 X10^3/uL; Monocyte% 9.1 % (0-10); NRBC Flagged by Analyzer 0 % (0-5); Neutrophil # 3.94 X10^3/uL (2.7-7.7); Neutrophil % 70.3 % (47-70); Platelet Count 120 K/mm3 (150-450); RBC Distribution Width CV 16.4 % (11.6-14.6); RBC Distribution Width SD 61.4 fl (35.1-43.9); Red Blood Count 3.24 M/mm3 (4.6-6.2); White Blood Count 5.6 K/mm3 (4.4-11.0)
[2021-04-06 09:29] LABS: ALB/GLOB Ratio 0.9 RATIO (0.9-2.4); AST(SGOT) 51 U/L (15-37); Alanine Aminotransfer ALT/SGPT 35 U/L (16-61); Albumin, Serum 3.6 g/dL (3.2-5.0); Alkaline Phosphatase 183 U/L (45-117); Anion Gap 7 (5-15); BUN 48 mg/dL (7-18); BUN/Creat Ratio 17.3 RATIO (10-20); Calcium,Total 9.5 mg/dL (8.5-10.1); Chloride 109 mmol/L (98-107); Creatinine, Serum 2.78 mg/dL (0.70-1.30); EST Glomerular Filtration Rate 24 mL/min (>60); Est Glom Filt Rate - Afr Amer 29 mL/min (>60); Globulin 4.2 g/dL (2.2-4.2); Glucose 128 mg/dL (74-106); Lipase 214 U/L (73-393); Potassium 4.3 mmol/L (3.5-5.1); Protein, Total 7.8 g/dL (6.4-8.2); Sodium Level 140 mmol/L (136-145)
[2021-04-06 10:14] LABS: Hepatitis B Surface Antigen Non-Reactive (Nonreactive); Hepatitis C Antibody Non-Reactive (Nonreactive)
[2021-04-09 09:12] LABS: Anti-Nuclear Antibody Test Negative (.)
== END ==
PROVIDERS: PCP Family Medicine; Referring Provider Family Medicine; Visit Provider Family Medicine
DX: K75.9 Inflammatory liver disease, unspecified (principal); R79.89 Other specified abnormal findings of blood chemistry; R16.1 Splenomegaly, not elsewhere classified
CPT/HCPCS: 36415; 80053; 83690; 84443; 85025; 86038; 86803; 87340

== ENCOUNTER → 2021-04-12 | Outpatient (CLI) | payer MEDICARE, OTHER, SELFPAY ==
[2021-03-24 09:45] VITALS: BMI 29.4
[2021-04-12 13:53] LABS: Bacteria 0 SEEN /hpf (None Seen); Mucous, Urine 0 SEEN /hpf (<or=2+); Red Blood Cells-Urine 0 SEEN /hpf (0-5); Squamous Epithelial Cells - UA 0 SEEN /hpf (0-5); White Blood Cells 0 SEEN /hpf (0-5)
[2021-04-12 14:54] LABS: Color, Urine Yellow (Yellow); Glucose, Dipstick Normal (Normal); Ketone-Dipstick Negative (Negative); Leukocyte Esterase-Dipstick Negative /ul (Negative); Nitrite-Dipstick Negative (Negative); Occult Blood-Urine Negative /ul (Negative); Protein-Dipstick Negative (Negative); Urine Bilirubin Dipstick Negative (Negative); Urine Clarity Clear (Clear); Urine Urobilinogen Normal (Normal)
== END | disposition home or self-care (01) ==
LOC: LABSPEC 13:51
PROVIDERS: PCP Family Medicine; Visit Provider Internal Medicine Nephrology
DX: R30.9 Painful micturition, unspecified (principal)
CPT/HCPCS: 81001

== ENCOUNTER → 2021-04-14 08:22 | Outpatient (CLI) | payer MEDICARE, OTHER, SELFPAY ==
[2021-03-24 09:45] VITALS: BMI 29.4
[2021-04-14 10:06] LABS: T4 Free Direct 1.18 ng/dL (0.76-1.46)
== END ==
PROVIDERS: PCP Family Medicine; Referring Provider Internal Medicine Endocrinology, Diabetes & Metabolism; Visit Provider Internal Medicine Endocrinology, Diabetes & Metabolism
DX: R94.6 Abnormal results of thyroid function studies (principal)
CPT/HCPCS: 36415; 84439; 84443

== ENCOUNTER 2021-05-18 11:24 | Outpatient (RCR) | payer MEDICARE, OTHER, SELFPAY ==
[2021-03-24 09:45] VITALS: BMI 29.4
[2021-04-20 11:30] LABS: International Normalized Ratio 2.8; Prothrombin Time (Protime)PT. 28.4 SECONDS (11.7-14.9)
[2021-05-18 12:46] LABS: International Normalized Ratio 3.1; Prothrombin Time (Protime)PT. 31.2 SECONDS (11.7-14.9)
== END 2021-05-18 18:00 | disposition home or self-care (01) ==
LOC: LAB 11:24
PROVIDERS: Family Provider Family Medicine; PCP Family Medicine; Referring Provider Internal Medicine Cardiovascular Disease; Visit Provider Internal Medicine Cardiovascular Disease
DX: Z95.2 Presence of prosthetic heart valve (principal); Z79.01 Long term (current) use of 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
CPT/HCPCS: 36415; 85610

== ENCOUNTER 2021-05-19 10:59 | Inpatient (IN) | payer MEDICARE, OTHER, SELFPAY ==
[2021-03-24 09:45] VITALS: BMI 29.4
[2021-05-19] VITALS (26 sets, daily range): BP systolic 125–190; BP diastolic 55–94; PULSE 69–71; RESP 13–37; TEMP 35.6–37.2; O2SAT 94–100; BMI 34.2; BMI 29.2
[2021-05-19] MEDS: Succinylcholine Chloride 200 MG/10 ML Vial 100 MG IV (11:04)
[2021-05-19] MEDS: Etomidate 20 MG/10 ML Vial IV (11:04)
--- NOTE | 2021-05-19 11:12 | CT_ITS ---
STUDY: CT BRAIN WITHOUT CONTRAST REASON FOR EXAM: Male, 71 years old. Change of mental status RADIATION DOSAGE (If Supplied By Facility): CTDIvol = ( 44.99 ) mGy, DLP = ( 779.24 ) mGycm TECHNIQUE: Transaxial CT imaging of the brain was performed without administration of intravenous contrast material. Individualized dose optimization techniques were used for this CT. COMPARISON: No relevant priors. FINDINGS: Normal soft tissue structures. Normal calvarium. There is mild cerebral atrophy with widening of the extra-axial spaces and ventricular dilatation. Normal white matter tracts of the cerebral hemispheres. There are small punctate calcifications of the basal ganglia which are seen in the aging brain as a normal variant. Normal brainstem. Normal cerebellum. There is no intracranial hemorrhage. There are no findings of an acute ischemic infarction. Partial opacification of the right sphenoid sinus. CT/Brain/Head without Contrast IMPRESSION: Chronic involutional changes of the brain. Partial opacification of the right sphenoid sinus. Electronically Signed: Donte Álvarez MD at 12:13 EDT , Service support ,
--- NOTE | 2021-05-19 11:12 | EKG12_ITS ---
Test Reason : ARREST Blood Pressure : / mmHG Vent. Rate : 071 BPM Atrial Rate : 072 BPM P-R Int : 000 ms QRS Dur : 154 ms QT Int : 492 ms P-R-T Axes : 000 -13 130 degrees QTc Int : 534 ms Poor data quality, interpretation may be adversely affected Ventricular-paced rhythm Biventricular pacemaker detected Abnormal ECG Confirmed by ALLEN NIX, AMINA ([id number]), international editorial producer TRINA VIVAR ([id number]) on 05/20/2021 1:09:39 PM Referred By: APRIL Confirmed By:AMINA VILLA MD
--- NOTE | 2021-05-19 11:12 | RAD_ITS ---
STUDY: X-RAY CHEST REASON FOR EXAM: Male, 71 years old. Post CPR. Chest pain. TECHNIQUE: Single AP portable view of the chest. COMPARISON: Comparison is made with prior study dated 05/04/2017. FINDINGS: An endotracheal tube is in situ. The tip is at 4.7 cm proximal to the papa. Endogastric tube is seen with the tip in the body of the stomach. Mild degree of vascular congestion. There is no demonstrated pleural abnormality. Sternal cerclage wires and vascular clips are present from a prior sternotomy and coronary artery bypass graft procedure (CABG). Moderate cardiomegaly. Normal mediastinum and max. Normal visualized pulmonary arteries. There is atherosclerotic calcification of the aortic arch with tortuosity. Normal visualized thoracic spine. There is degenerative osteoarthritis of the bilateral shoulders. There is no demonstrated abnormality of the visualized soft tissue structures of the upper abdomen. RAD/Chest 1 View (Portable) IMPRESSION: The tip of the endotracheal tube is at 4.7 cm proximal to papa. Cardiomegaly and mild degree of vascular congestion. Electronically Signed: Donte Álvarez MD at 12:13 EDT , Service support ,
--- NOTE | 2021-05-19 11:16 | EDS_ITS ---
HPI History of Present Illness Chief Complaint: CPR Detail of Chief Complaint: Cardiopulmonary arrest Informant: spouse/S.O. and EMS Onset/Context/Timing Onset: Today Context: Sudden Onset Timing: Continuous Current Severity: Severe Maximum Severity: Severe Narrative Narrative: 71-year-old male brought in by squad. Patient is unable to give any history. He is moaning and otherwise not responsive. Per EMS the patient was at a neighbor's house. Collapsed. CPR was started. When squad arrived about 20 to 25 minutes ago with CPR the patient had a pulse. He also began spontaneous breathing. Therefore CPR was discontinued. They were bagging the patient. Prior to the event he reportedly had no complaints. He does have a pacemaker which was firing. Had a pulse with this. He is also on Coumadin. His is also here I will go get a history from her also. stated patient had very similar event in February had an extensive work-up at [facility] without any known cause or specific diagnosis. He is on the Coumadin for mechanical heart valve. Prior similar symptoms: No Recent Illness/Hospitalization: Yes [facility] Medical History Abnormal results of thyroid function studies Anemia Atrial flutter Bacterial endocarditis Benign essential hypertension Biventricular cardiac pacemaker in situ (~05/26/16) Cardiomyopathy in disease classified elsewhere 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, stage III (moderate) Diffuse large b-cell lymphoma, extranodal and solid organ sites GI bleed GI bleed Gout History of DVT (deep vein thrombosis) Hypothyroidism (acquired) MRSA (methicillin resistant Staphylococcus aureus) infection Non-rheumatic mitral regurgitation Non-rheumatic mitral valve stenosis MIA (obstructive sleep apnea) Paroxysmal ventricular tachycardia Pure hypercholesterolemia Rheumatic aortic stenosis Rheumatic mitral insufficiency TIA (transient ischemic attack) Home Medications multivitamin with folic acid 1 tab PO QODAY 06/06/16 [History Last Taken 10/26/20 17:00] allopurinol 100 mg PO DINNER 08/29/17 [History Last Taken 10/26/20 17:00] calcitriol 0.25 mg PO DINNER 08/29/17 [History Last Taken 10/26/20 17:00] doxycycline hyclate 100 mg capsule 100 mg PO BID #180 cap 01/18/18 [Rx Last Taken 10/27/20 09:00] ferrous sulfate 325 mg (65 mg iron) tablet 65 mg PO DINNER tab 11/21/18 [History Last Taken 10/26/20 17:00] cyclobenzaprine 10 mg PO QHS 12/31/18 [History Last Taken 10/26/20 22:00] furosemide 20 mg tablet 20 mg PO DAILY #90 tab 01/27/21 [Rx Last Taken Unknown] sodium bicarbonate 650 mg tablet 650 mg PO BID tablet 03/01/21 [History Last Taken Unknown] levothyroxine 75 mcg tablet 75 mcg PO DAILY #90 tab 04/14/21 [Rx Last Taken Unkn own] isosorbide mononitrate 30 mg tablet,extended release 24 hr 30 mg PO DAILY #90 tab 04/25/21 [Rx Last Taken Unknown] warfarin 6 mg tablet See Rx Instructions .ROUTE .COMPLEX #90 tab 05/06/21 [Rx La st Taken Unknown] carvedilol 3.125 mg PO BID 05/19/21 [History Last Taken Unknown] pantoprazole 40 mg PO DAILY 05/19/21 [History Last Taken Unknown] tamsulosin 0.4 mg PO DINNER 05/19/21 [History Last Taken Unknown] Allergy/AdvReac Type Severity Reaction Status Date / Time No Known Allergies Allergy Verified 05/19/21 11:38 Family History Father CAD (coronary artery disease) CABG Brother CAD (coronary artery disease) CABG Mother Diabetes Sister Breast cancer Diabetes Sister Cancer breast Diabetes Surgical History dual chamber pacemaker implantation (~10/2010) History of aortic valve replacement (~08/2003) History of appendectomy History of cholecystectomy History of evacuation of hematoma History of mechanical aortic valve replacement (~1986) History of mitral valve repair (~08/2003) Social History Smoking Status: Never smoker alcohol intake: never substance use type: does not use caffeine: No what type of physical activity do you participate in: weight training and other details: Nustep frequency: 3-4 times per week duration: 45-60 minutes/day seatbelt use: always do you feel safe at home: Yes ROS ROS ED ROS Narrative Unable to obtain due to the patient's overall medical condition and mental status Review of Systems ROS Unobtainable: due to mental status Constitutional Constitutional ED: Denies fever(s) Eyes Eyes: Denies change in vision ENT ENT ED: Denies ear pain Cardiovascular Cardiovascular: Denies chest pain Respiratory/Chest Respiratory/Chest: Denies dyspnea Gastrointestinal Gastrointestinal: Denies abdominal pain Genitourinary Genitourinary ED: Denies dysuria Musculoskeletal Musculoskeletal: Denies myalgias Integumentary Denies rash Neurologic Neurologic: Denies headache(s) Psychiatric Psychiatric: Denies depression Endocrine Endocrinology: Denies polyuria Hematologic/Lymphatic Hematologic/Lymphatic: Denies easy bruising Allergic/Immunologic Allergic/Immunologic ED: Denies urticaria EXAM Physical Exam Narrative Exam Narrative: Only male brought in by squad. Decreased mental status. Does not answer questions or follow commands. Is being bagged. He is moaning. He does have a blood pressure 176/92 with a pulse of 71 being paced on the monitor. He has both carotid and femoral pulses. Patient has some blood at his lips. HEENT exam pupils are round reactive to light about 3 mm bilaterally. They are not dilated nor fixed. Neck trachea midline. No lymphadenopathy. Lungs clear to auscultation with bagging and post intubation. Bilaterally. Heart regular rhythm rate about 70 3/6 systolic ejection murmur. Abdomen soft nondistended. He has multiple well-healed prior abdominal surgical scars. Extremities he appears to be posturing with his upper extremities. There is no obvious seizure activity. Lower extremities there is no gross deformity. No shortening or rotation. He has bilateral femoral pulses. Neurologically he is moaning. Follows no commands. Makes no purposeful movements. Skin unremarkable other than some minor bruising on his left side. Appears to be old. No rashes. No cellulitis. Const Vital Signs: 05/19/21 11:00 05/19/21 11:10 05/19/21 11:21 Temperature 96.0 F L Temperature Source Temporal Pulse Rate 71 Respiratory Rate 16 Respiratory Effort Agonal Blood Pressure 176/92 H Blood Pressure Mean 120 Pulse Ox 100 Oxygen Delivery Method Ambu-Bag Ambu-Bag Ambu-Bag Oxygen Flow Rate (L/min) 15 15 Fraction of Inspired Oxygen (FIO2) 05/19/21 11:23 05/19/21 11:30 05/19/21 11:58 Temperature Temperature Source Pulse Rate 71 70 70 Respiratory Rate 29 H 37 H 20 H Respiratory Effort Blood Pressure 161/67 H 190/67 H 174/94 H Blood Pressure Mean 98 108 120 Pulse Ox 99 100 94 Oxygen Delivery Method Ambu-Bag Ambu-Bag Mechanical Ventilator Oxygen Flow Rate (L/min) 15 15 Fraction of Inspired Oxygen (FIO2) 50 05/19/21 12:30 Temperature Temperature Source Pulse Rate 70 Respiratory Rate 13 Respiratory Effort Blood Pressure 164/65 H Blood Pressure Mean 98 Pulse Ox 96 Oxygen Delivery Method Mechanical Ventilator Oxygen Flow Rate (L/min) Fraction of Inspired Oxygen (FIO2) Positive well nourished and well developed General Appearance ED: well developed HEENT normocephalic and atraumatic; Negative for trauma or tenderness Eyes PERRL; Negative for EOMs intact bilaterally Neck No full ROM, no lymphadenopathy, No supple and no JVD Resp Resp Narrative: Bilateral breath sounds with bagging. Spontaneous respirations. Cardio regular rate and regular rhythm; Negative for no murmurs Cardio Narrative: 3/6 systolic ejection murmur. GI non-tender, non-distended and no masses Auscultation: normoactive bowel sounds Palpation: soft; Negative for tender Neuro Neuro Narrative: Moaning. No purposeful movements. Posturing. Not answering questions or following commands. Psych Mood & Affect: depressed Skin Skin Narrative: Minor bruising left side appears to be old. Lesions: no lesions Rashes: no rashes MDM MDM MDM Narrative Medical decision making narrative: Patient was intubated shortly after arrival. He was treated with etomidate and succinylcholine. Intubated with a glide scope on the first attempt. Bilateral breath sounds were heard postintubation. Good color change and vapor in the ET tube. Differential diagnosis for cardiopulmonary arrest would be cardiac causes versus possibly intracranial bleed versus other etiologies. He will be given a fluid bolus. Lab Data Attestation: I reviewed the patient's lab results. Lab results narrative: CBC shows a white count of 5. Hemoglobin 11.9. Electrolytes unremarkable gap of 6 BUN of 45 creatinine 2.98 with a history of chronic renal insufficiency. Glucose 129. Lactic acid elevated 3.1. Troponin is 40. INR is 2.90 is on Coumadin. UA shows blood but no signs of infection. CT of the brain shows chronic changes no acute bleed. Read by the radiologist reviewed by me. Portable chest x-ray shows ET tube in good position above the papa. Prior sternotomy. Cardiomegaly. No acute process. Patient resting on the vent with propofol drip and has received IV Ativan. I discussed test results with the . I spoken to the hospitalist and fiscal technician and he will be admitted to the ICU. Currently we have no specific cause for his cardiopulmonary arrest. Labs: Laboratory Results - last 24 hr 05/19/21 05/19/21 05/19/21 11:17 11:17 11:17 WBC 5.9 RBC 3.66 L Hgb 11.9 L Hct 36.9 L MCV 100.8 H MCH 32.5 H MCHC 32.2 RDW Std Deviation 59.5 H RDW Coeff of Jennifer 15.9 H Plt Count 106 L MPV 11.8 Immature Gran % (Auto) 0.200 Neut % (Auto) 56.6 Lymph % (Auto) 29.6 [place] % (Auto) 10.2 H Eos % (Auto) 2.7 Baso % (Auto) 0.7 Absolute Neuts (auto) 3.3 Absolute Lymphs (auto) 1.74 Nucleated RBC % 0 PT INR APTT Sodium 138 Potassium 4.8 Chloride 107 Carbon Dioxide 25.0 Anion Gap 6 BUN 45 H Creatinine 2.98 H Estim Creat Clear Calc 20.95 Est GFR (MDRD) Af Amer 27 L Est GFR (MDRD) Non-Af 22 L BUN/Creatinine Ratio 15.1 Glucose 129 H Lactic Acid 3.1 H* Calcium 9.4 Troponin I High Sens 40.8 Urine Color Urine Clarity Urine pH Ur Specific [place] Urine Protein Urine Glucose (UA) Urine Ketones Urine Occult Blood Urine Nitrite Urine Bilirubin Urine Urobilinogen Ur Leukocyte Esterase Urine RBC Urine WBC Ur Squamous Epith Cells Ur Renal Epithelial Cell Urine Bacteria Hyaline Casts Urine Mucus 05/19/21 05/19/21 11:17 11:25 WBC RBC Hgb Hct MCV MCH MCHC RDW Std Deviation RDW Coeff of [place] Plt Count MPV Immature Gran % (Auto) Neut % (Auto) Lymph % (Auto) [place] % (Auto) Eos % (Auto) Baso % (Auto) Absolute Neuts (auto) Absolute Lymphs (auto) Nucleated RBC % PT 29.5 H INR 2.9 APTT 47.3 H Sodium Potassium Chloride Carbon Dioxide Anion Gap BUN Creatinine Estim Creat Clear Calc Est GFR (MDRD) Af Amer Est GFR (MDRD) Non-Af BUN/Creatinine Ratio Glucose Lactic Acid Calcium Troponin I High Sens Urine Color Yellow Urine Clarity Clear Urine pH 6.0 Ur Specific [place] 1.015 Urine Protein 100 H Urine Glucose (UA) Normal Urine Ketones Negative Urine Occult Blood 150 H Urine Nitrite Negative Urine Bilirubin Negative Urine Urobilinogen Normal Ur Leukocyte Esterase Negative Urine RBC 10-25 SEEN Urine WBC 0-5 SEEN Ur Squamous Epith Cells 0-5 SEEN Ur Renal Epithelial Cell 0-5 SEEN Urine Bacteria 1+ Hyaline Casts 0-5 SEEN Urine Mucus 0 SEEN Radiography Chest X-Ray - ED: 1 View, Read by ED Physician, Read by Radiologist, Unchanged, Mediastinum, Bony Structures, No Acute Disease and Cardiomegaly Diagnostic Testing: Radiology Impression Brain CT 05/19/21 11:12 IMPRESSION: Chronic involutional changes of the brain. Partial opacification of the right sphenoid sinus. Electronically Signed: Donte Álvarez MD at 12:13 EDT , Service support , Chest X-Ray 05/19/21 11:12 IMPRESSION: The tip of the endotracheal tube is at 4.7 cm proximal to papa. Cardiomegaly and mild degree of vascular congestion. Electronically Signed: Donte Álvarez MD at 12:13 EDT , Service support , Rhythm Strip Rhythm Strip: Paced Rate: 71 Ectopy: None EKG Initial EKG: Attestation: I personally reviewed and interpreted this EKG as follows: Comments: Paced rhythm rate of 71. No ST elevation. Critical Care Time Critical Care Time: Yes Critical care time (excluding procedures): 30-74 minutes Discharge Plan Triage Chief Complaint: CPR ED Provider: Shashank Hernandez Dx/Rx/DC Orders Clinical Impression: Cardiopulmonary arrest with successful resuscitation, Airway intubation performed without difficulty, Coagulopathy, History of pacemaker, History of heart valve replacement with mechanical valve Prescriptions: No Action doxycycline hyclate 100 MG capsule 100 mg PO BID Qty: 180 RF: 3 ferrous sulfate 325 mg (65 mg iron) tablet 65 mg PO DINNER RF: 0 multivitamin with folic acid 1 TABLET tablet 1 tab PO QODAY RF: 0 allopurinol 100 MG tablet 100 mg PO DINNER RF: 0 calcitriol 0.25 MCG capsule 0.25 mg PO DINNER RF: 0 cyclobenzaprine 10 MG tablet 10 mg PO QHS RF: 0 pantoprazole [address] For Susp In Packet 40 mg PO DAILY RF: 0 carvedilol 3.125 mg tablet 3.125 mg PO BID RF: 0 tamsulosin 0.4 mg capsule 0.4 mg PO DINNER RF: 0 furosemide 20 mg tablet 20 mg PO DAILY Qty: 90 RF: 3 sodium bicarbonate 650 mg tablet 650 mg PO BID RF: 0 levothyroxine 75 mcg tablet 75 mcg PO DAILY Qty: 90 RF: 3 isosorbide mononitrate 30 mg tablet extended release 24 hr 30 mg PO DAILY Qty: 90 RF: 3 warfarin 6 mg tablet See Rx Instructions mg .ROUTE .COMPLEX Qty: 90 RF: 3 Primary Care Provider: Vinny Atkinson Referrals: Vinny Atkinson MD [Primary Care Provider] -
[2021-05-19 11:23] LABS: Absolute Lymphocyte Count 1.74 X10^3/uL (0.83-4.51); Absolute Neutrophil Count 3.3 X10^3/uL (2.0-7.7); Basophil# 0.04 X10^3/uL; Basophil% 0.7 % (0-1); Eosinophil# 0.16 X10^3/uL; Eosinophils% 2.7 % (0-5); Hematocrit 36.9 % (40-54); Hemoglobin 11.9 g/dL (13.0-16.5); Lymphocyte # 1.74 X10^3/ul (0.83-4.51); Lymphocyte % 29.6 % (19-41); Mean Corp Hgb Conc 32.2 g/dL (32-36); Mean Corpuscular Hgb 32.5 pg (27.0-32.0); Mean Corpuscular Volume 100.8 fL (80-94); Mean Platelet Vol. 11.8 fl (6.2-12.0); Monocyte% 10.2 % (0-10); NRBC Flagged by Analyzer 0 % (0-5); Neutrophil # 3.32 X10^3/uL (2.7-7.7); Neutrophil % 56.6 % (47-70); Platelet Count 106 K/mm3 (150-450); RBC Distribution Width CV 15.9 % (11.6-14.6); RBC Distribution Width SD 59.5 fl (35.1-43.9); Red Blood Count 3.66 M/mm3 (4.6-6.2); White Blood Count 5.9 K/mm3 (4.4-11.0)
[2021-05-19] MEDS: Propofol 10MG/Ml 1,000 MG/100 ML Bottle 6 MG CONT INF (11:24)
[2021-05-19] MEDS: LORazepam 2 MG/ML Syringe 1 MG IV (11:29)
[2021-05-19 11:30] LABS: Mucous, Urine 0 SEEN /hpf (<or=2+)
[2021-05-19 11:31] LABS: Color, Urine Yellow (Yellow); Glucose, Dipstick Normal (Normal); Ketone-Dipstick Negative (Negative); Leukocyte Esterase-Dipstick Negative /ul (Negative); Nitrite-Dipstick Negative (Negative); Occult Blood-Urine 150 /ul (Negative); Protein-Dipstick 100 mg/dl (Negative); Specific Gravity, Urine 1.015 (1.002-1.030); Urine Bilirubin Dipstick Negative (Negative); Urine Clarity Clear (Clear); Urine Urobilinogen Normal (Normal)
[2021-05-19 11:33] LABS: International Normalized Ratio 2.9; Prothrombin Time (Protime)PT. 29.5 SECONDS (11.7-14.9)
[2021-05-19 11:34] LABS: Partial Thromboplast Time 47.3 Seconds (24.1-36.2)
[2021-05-19 11:39] LABS: Red Blood Cells-Urine 10-25 SEEN /hpf (0-5); Squamous Epithelial Cells - UA 0-5 SEEN /hpf (0-5); White Blood Cells 0-5 SEEN /hpf (0-5)
[2021-05-19 11:40] LABS: Bacteria 1+ /hpf (None Seen); Hyaline Cast 0-5 SEEN /lpf (0-5); Renal Epithelial Cells 0-5 SEEN /hpf (0-5)
[2021-05-19 11:41] LABS: Anion Gap 6 (5-15); BUN 45 mg/dL (7-18); BUN/Creat Ratio 15.1 RATIO (10-20); Calcium,Total 9.4 mg/dL (8.5-10.1); Chloride 107 mmol/L (98-107); Creatinine, Serum 2.98 mg/dL (0.70-1.30); EST Glomerular Filtration Rate 22 mL/min (>60); Est Glom Filt Rate - Afr Amer 27 mL/min (>60); Estimated Creatinine Clearance 20.95 ml/min; Glucose 129 mg/dL (74-106); Potassium 4.8 mmol/L (3.5-5.1); Sodium Level 138 mmol/L (136-145); Troponin-I HS 40.8 pg/mL (3.0-78.5)
[2021-05-19 11:52] LABS: Lactic Acid 3.1 mmol/L (0.4-1.9)
--- NOTE | 2021-05-19 11:57 | ED.RN ---
DR CHEN NOTIFIED OF LACTIC ACID LEVEL.
--- NOTE | 2021-05-19 12:45 | HP.PCM.HOS_ITS ---
HPI - General General Date of Admission: 05/19/21 HPI Narrative CHRISTIAN RICHMOND, is a 71 M who presents with a complaint of syncope. He has an extensive PMH as outlined, and was chatting with his neighbor, and abruptly collapsed. His started CPR, and the EMS were called. On arrival, he was found to have a pulse and he had come around. He was brought to the ED where he was minimally responsive. He had a similar episode back in February 2021 and had an extensive workup for it at [facility], with no results. He has a pacemaker. He was intubated on arrival. Vitals in the ED showed blood pressure of 164/65, pulse rate of 70 and respiratory of 13 with oxygen saturation of 96%. Labs showed WBC of 5.9, hemoglobin of 11.9 and platelets of 106. Chemistry showed creatinine of 2.98 and glucose of 129 with lactic acid of 3.1. Urinalysis showed 1+ bacteria. CT of the brain showed chronic involutional changes with no acute intracranial pathology and chest x-ray done showed cardiomegaly and mild degree of vascular congestion. He has been admitted to be managed for acute cardiopulmonary arrest of unclear etiology. [facility] Medical History (Updated 05/19/21 @ 18:[address] 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, stage III (moderate) Diffuse large b-cell lymphoma, extranodal and solid organ sites GI bleed GI bleed Gout History of DVT (deep vein thrombosis) Hypothyroidism (acquired) MRSA (methicillin resistant Staphylococcus aureus) infection Non-rheumatic mitral regurgitation Non-rheumatic mitral valve stenosis MIA (obstructive sleep apnea) Paroxysmal ventricular tachycardia Pure hypercholesterolemia Rheumatic aortic stenosis Rheumatic mitral insufficiency TIA (transient ischemic attack) (~11/19/15) Home Medications multivitamin with folic acid 1 tab PO QODAY 06/06/16 [History Last Taken 10/26/20 17:00] allopurinol 100 mg PO DINNER 08/29/17 [History Last Taken 10/26/20 17:00] calcitriol 0.25 mg PO DINNER 08/29/17 [History Last Taken 10/26/20 17:00] doxycycline hyclate 100 mg capsule 100 mg PO BID #180 cap 03/02/18 [Rx Last Taken 10/27/20 09:00] ferrous sulfate 325 mg (65 mg iron) tablet 65 mg PO DINNER tab 11/21/18 [History Last Taken 10/26/20 17:00] cyclobenzaprine 10 mg PO QHS 12/31/18 [History Last Taken 10/26/20 22:00] furosemide 20 mg tablet 20 mg PO DAILY #90 tab 01/27/21 [Rx Last Taken Unknown] sodium bicarbonate 650 mg tablet 650 mg PO BID tablet 03/01/21 [History Last Taken Unknown] levothyroxine 75 mcg tablet 75 mcg PO DAILY #90 tab 04/14/21 [Rx Last Taken Unknown] isosorbide mononitrate 30 mg tablet,extended release 24 hr 30 mg PO DAILY #90 tab 04/25/21 [Rx Last Taken Unknown] warfarin 6 mg tablet See Rx Instructions .ROUTE .COMPLEX #90 tab 05/06/21 [Rx Last Taken Unknown] carvedilol 3.125 mg PO BID 05/19/21 [History Last Taken Unknown] pantoprazole 40 mg PO DAILY 05/19/21 [History Last Taken Unknown] tamsulosin 0.4 mg PO DINNER 05/19/21 [History Last Taken Unknown] Allergy/AdvReac Type Severity Reaction Status Date / Time No Known Allergies Allergy Verified 05/19/21 11:38 Family History Father CAD (coronary artery disease) CABG Brother CAD (coronary artery disease) CABG Mother Diabetes Sister Breast cancer Diabetes Sister Cancer breast Diabetes Surgical History dual chamber pacemaker implantation (~10/2010) History of aortic valve replacement (~08/2003) History of appendectomy History of cholecystectomy History of evacuation of hematoma History of mechanical aortic valve replacement (~1986) History of mitral valve repair (~08/2003) Social History Smoking Status: Never smoker alcohol intake: never substance use type: does not use caffeine: No what type of physical activity do you participate in: weight training and other details: Nustep frequency: 3-4 times per week duration: 45-60 minutes/day seatbelt use: always do you feel safe at home: Yes ROS Review of Systems ROS Unobtainable: due to encephalopathy, due to endotracheal tube and other Vital Signs Vital Signs Vital Signs: 05/19/21 11:00 05/19/21 11:10 05/19/21 11:21 Temperature 96.0 F L Temperature Source Temporal Pulse Rate 71 Respiratory Rate 16 Respiratory Effort Agonal Blood Pressure 176/92 H Blood Pressure Mean 120 Pulse Ox 100 Oxygen Delivery Method Ambu-Bag Ambu-Bag Ambu-Bag Oxygen Flow Rate (L/min) 15 15 Fraction of Inspired Oxygen (FIO2) 05/19/21 11:23 05/19/21 11:30 05/19/21 11:58 Temperature Temperature Source Pulse Rate 71 70 70 Respiratory Rate 29 H 37 H 20 H Respiratory Effort Blood Pressure 161/67 H 190/67 H 174/94 H Blood Pressure Mean 98 108 120 Pulse Ox 99 100 94 Oxygen Delivery Method Ambu-Bag Ambu-Bag Mechanical Ventilator Oxygen Flow Rate (L/min) 15 15 Fraction of Inspired Oxygen (FIO2) 50 05/19/21 12:30 Temperature Temperature Source Pulse Rate 70 Respiratory Rate 13 Respiratory Effort Blood Pressure 164/65 H Blood Pressure Mean 98 Pulse Ox 96 Oxygen Delivery Method Mechanical Ventilator Oxygen Flow Rate (L/min) Fraction of Inspired Oxygen (FIO2) Weight Weight: 218 lb 11.177 oz Body Mass Index (BMI) 34.2 Physical Exam Const Constitutional Narrative: intubated, sedated HEENT normocephalic and head/scalp atraumatic Eyes EOMs intact bilaterally and conjunctivae normal Neck no lymphadenopathy and no carotid bruits Resp Resp Narrative: diminished breath sounds bibasally, no wheezes or crackles. intubated and sedated. Cardio regular rate, regular rhythm, S1 normal heart sound, S2 normal heart sound and no murmurs Cardio Narrative: mechanical aortic and mitral valve clicks GI normal to inspection, nondistended, normoactive bowel sounds, soft to palpation, non-tender and non-distended Extremity normal to inspection and no clubbing, cyanosis or edema Peripheral Pulses: Yes pulses 2+ throughout Neuro Neuro Narrative: intubated, sedated Results Lab / Micro Data Result Diagrams: 05/19/21 11:17 05/19/21 11:17 Labs: Laboratory Results - last 24 hr 05/19/21 05/19/21 05/19/21 11:17 11:17 11:17 WBC 5.9 RBC 3.66 L Hgb 11.9 L Hct 36.9 L MCV 100.8 H MCH 32.5 H MCHC 32.2 RDW Std Deviation 59.5 H RDW Coeff of Jennifer 15.9 H Plt Count 106 L MPV 11.8 Immature Gran % (Auto) 0.200 Neut % (Auto) 56.6 Lymph % (Auto) 29.6 [place] % (Auto) 10.2 H Eos % (Auto) 2.7 Baso % (Auto) 0.7 Absolute Neuts (auto) 3.3 Absolute Lymphs (auto) 1.74 Nucleated RBC % 0 PT INR APTT Sodium 138 Potassium 4.8 Chloride 107 Carbon Dioxide 25.0 Anion Gap 6 BUN 45 H Creatinine 2.98 H Estim Creat Clear Calc 20.95 Est GFR (MDRD) Af Amer 27 L Est GFR (MDRD) Non-Af 22 L BUN/Creatinine Ratio 15.1 Glucose 129 H Lactic Acid 3.1 H* Calcium 9.4 Troponin I High Sens 40.8 Urine Color Urine Clarity Urine pH Ur Specific [place] Urine Protein Urine Glucose (UA) Urine Ketones Urine Occult Blood Urine Nitrite Urine Bilirubin Urine Urobilinogen Ur Leukocyte Esterase Urine RBC Urine WBC Ur Squamous Epith Cells Ur Renal Epithelial Cell Urine Bacteria Hyaline Casts Urine Mucus 05/19/21 05/19/21 11:17 11:25 WBC RBC Hgb Hct MCV MCH MCHC RDW Std Deviation RDW Coeff of Jennifer Plt Count MPV Immature Gran % (Auto) Neut % (Auto) Lymph % (Auto) [place] % (Auto) Eos % (Auto) Baso % (Auto) Absolute Neuts (auto) Absolute Lymphs (auto) Nucleated RBC % PT 29.5 H INR 2.9 APTT 47.3 H Sodium Potassium Chloride Carbon Dioxide Anion Gap BUN Creatinine Estim Creat Clear Calc Est GFR (MDRD) Af Amer Est GFR (MDRD) Non-Af BUN/Creatinine Ratio Glucose Lactic Acid Calcium Troponin I High Sens Urine Color Yellow Urine Clarity Clear Urine pH 6.0 Ur Specific [place] 1.015 Urine Protein 100 H Urine Glucose (UA) Normal Urine Ketones Negative Urine Occult Blood 150 H Urine Nitrite Negative Urine Bilirubin Negative Urine Urobilinogen Normal Ur Leukocyte Esterase Negative Urine RBC 10-25 SEEN Urine WBC 0-5 SEEN Ur Squamous Epith Cells 0-5 SEEN Ur Renal Epithelial Cell 0-5 SEEN Urine Bacteria 1+ Hyaline Casts 0-5 SEEN Urine Mucus 0 SEEN Rhythm Strip Rhythm Strip: Paced Rate: 71 Ectopy: None Radiology Impression Brain CT 05/19/21 11:12 IMPRESSION: Chronic involutional changes of the brain. Partial opacification of the right sphenoid sinus. Electronically Signed: Donte Álvarez MD at 12:13 EDT , Service support , Chest X-Ray 05/19/21 11:12 IMPRESSION: The tip of the endotracheal tube is at 4.7 cm proximal to papa. Cardiomegaly and mild degree of vascular congestion. Electronically Signed: Donte Álvarez MD at 12:13 EDT , Service support , Assessment & Plan Assessment/Plan (1) Cardiopulmonary arrest with successful resuscitation: PLAN: #Acute cardiopulmonary arrest * Admit to ICU * Cause of cardiac arrest is not clear. Apparently he had a similar episode giovanni k in February 2021 and had an extensive work-up done at [facility].He also had a similar episode some years ago in [place] and says workup was negative then as well. * Will request records from [facility] * Currently intubated. titrate oxygen to maintain saturation above 90%. * Consult cardiology and pulmonology * Will need his pacemaker interrogated * cycle troponin * 2D echo ordered. * Cardiology reviewed patient and based on his complex history and third AV replacement, that he be transferred to [facility] for cardiac cath as part of evaluation for this event. * #History of atrial flutter * also has a biventricular pacemaker inserted * will need interrogation of pacemaker. * cardiology consulted * He last had his pacemaker checked on April 15, 2021. * on coumadin. INR is 2.9 * #History of aortic and mitral valve replacements: on coumadin. INR is therapeutic at 2.9 #CKD stage 3: appears to be at his baseline #hypertension; BP elevated in the 160s systolic. On carvedilol. #Hypothyroidism: On Synthroid. Will check TSH. 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 * Total [id number] time 17 minutes. * Disposition: to transfer to [facility] as recommended by cardiology. Transfer center contacted. Charges/Coding Visit Charges Inpatient E&M: 50566 Init Hosp L3 Procedures Hospitalists Procedures: 05196 Advncd Care Plan 30 Min
--- NOTE | 2021-05-19 13:18 | NURSING ---
ICU 4 INTUBATED, CPR, PACEMEADAVID BOWEN
--- NOTE | 2021-05-19 13:40 | EX.PCM.CONCC ---
Assessment & Plan Assessment/Plan (1) Acute respiratory failure: PLAN: RECOMMENDATIONS: 1. Continue patient on assist control mode mechanical ventilation. 2. Wean FiO2 and PEEP to maintain saturations at or above 90%. 3. Obtain and send sputum for culture. 4. Obtain arterial blood gas. 5. Await device interrogation. 6. Cardiology consultation is pending. IMPRESSIONS: 1. Acute hypoxemic respiratory failure The patient was initially intubated in the emergency department over concerns for airway protection due to encephalopathy. At this time, the patient will be continued on assist control mode of mechanical ventilation. Will obtain arterial blood gas along with sputum culture. Plan to wean FiO2 and PEEP to maintain oxygen saturations at or above 90%. Wean sedating medications to maintain a RASS of -1 to 1. 2. Syncope/cardiopulmonary arrest Unclear precipitating etiology. Await cardiac device interrogation. Echocardiogram is pending, as is cardiology consultation. 3. History of valvular heart disease/atrial flutter/CKD/hypertension/hypothyroidism/non-Hodgkin's lymphoma Complicates care, management, recovery and prognosis. Continue home medications as indicated. TIME: 38 minutes of critical care time, independent of procedures, was spent addressing the patient's [2], review of all data and collaboration with the care team. ([id number]) HPI Consult Data Date of Consult: 05/20/21 HPI Narrative Reason for Consultation: Acute hypoxemic respiratory failure HPI Narrative: The patient is a 71-year-old male, with a history as outlined below, who presented to the emergency department via EMS on May 19 after experiencing a syncopal event and becoming unresponsive. Bystander CPR was initiated. Per report, the patient had been in his normal state of health and was talking with a neighbor when he became acutely unresponsive and collapsed. Upon EMS arrival, the patient was spontaneously breathing and had a weak pulse. The patient does have a history of CKD stage IV and is currently followed by Dr. Sharron Calderon of nephrology. On presentation to the emergency department, the patient was noted to be afebrile and hemodynamically stable. Initial laboratory evaluation revealed a normal white blood cell count. Chemistry profile was notable for a creatinine of 2.98. Lactate was elevated to 3.1. Urine analysis was unremarkable. CT head revealed chronic involutional changes of the brain. Chest x-ray demonstrated cardiomegaly and mild pulmonary vascular congestion. Due to the patient's encephalopathy, he was emergently intubated in the ED. The patient was subsequently admitted to the medical intensive care unit for further management. [facility] Medical History (Updated 05/19/21 @ 18:[address] 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, stage III (moderate) Diffuse large b-cell lymphoma, extranodal and solid organ sites GI bleed GI bleed Gout History of DVT (deep vein thrombosis) Hypothyroidism (acquired) Infectious endocarditis MRSA (methicillin resistant Staphylococcus aureus) infection Non-rheumatic mitral regurgitation Non-rheumatic mitral valve stenosis Non-ST elevation (NSTEMI) myocardial infarction MIA (obstructive sleep apnea) Paroxysmal ventricular tachycardia Pure hypercholesterolemia Rheumatic aortic stenosis Rheumatic mitral insufficiency TIA (transient ischemic attack) (~11/19/15) Home Medications multivitamin with folic acid 1 tab PO QODAY 06/06/16 [History Last Taken 10/26/20 17:00] allopurinol 100 mg PO DINNER 08/29/17 [History Last Taken 10/26/20 17:00] calcitriol 0.25 mg PO DINNER 08/29/17 [History Last Taken 10/26/20 17:00] doxycycline hyclate 100 mg capsule 100 mg PO BID #180 cap 01/18/18 [Rx Last Taken 10/27/20 09:00] ferrous sulfate 325 mg (65 mg iron) tablet 65 mg PO DINNER tab 11/21/18 [History Last Taken 10/26/20 17:00] cyclobenzaprine 10 mg PO QHS 12/31/18 [History Last Taken 10/26/20 22:00] furosemide 20 mg tablet 20 mg PO DAILY #90 tab 01/27/21 [Rx Last Taken Unknown] sodium bicarbonate 650 mg tablet 650 mg PO BID tablet 03/01/21 [History Last Taken Unknown] levothyroxine 75 mcg tablet 75 mcg PO DAILY #90 tab 04/14/21 [Rx Last Taken Unknown] isosorbide mononitrate 30 mg tablet,extended release 24 hr 30 mg PO DAILY #90 tab 04/25/21 [Rx Last Taken Unknown] warfarin 6 mg tablet See Rx Instructions .ROUTE .COMPLEX #90 tab 05/06/21 [Rx Last Taken Unknown] carvedilol 3.125 mg PO BID 05/19/21 [History Last Taken Unknown] pantoprazole 40 mg PO DAILY 05/19/21 [History Last Taken Unknown] tamsulosin 0.4 mg PO DINNER 05/19/21 [History Last Taken Unknown] Allergy/AdvReac Type Severity Reaction Status Date / Time No Known Allergies Allergy Verified 05/19/21 11:38 Family History Father CAD (coronary artery disease) CABG Brother CAD (coronary artery disease) CABG Mother Diabetes Sister Breast cancer Diabetes Sister Cancer breast Diabetes Surgical History (Updated 05/19/21 @ 18:[address] Jeff Grullon MD) dual chamber pacemaker implantation (~10/2010) History of aortic valve replacement (~08/2003) History of appendectomy History of atrioventricular chiquita ablation History of cholecystectomy History of evacuation of hematoma History of mechanical aortic valve replacement (~1986) History of mitral valve repair (~08/2003) Social History Smoking Status: Never smoker alcohol intake: never substance use type: does not use caffeine: No what type of physical activity do you participate in: weight training and other details: Nustep frequency: 3-4 times per week duration: 45-60 minutes/day seatbelt use: always do you feel safe at home: Yes ROS Review of Systems ROS Unobtainable: due to endotracheal tube and due to mental status Physical Exam Const General Appearance: intubated and patient mechanically ventilated Nutritional Appearance: obese HEENT normocephalic and head/scalp atraumatic Mouth: endotracheal tube in place and OG tube in place Eyes PERRL and conjunctivae normal Neck supple General: trachea midline Resp Auscultation: clear to auscultation bilaterally; Negative for rales, rhonchi or wheezes Cardio regular rate and regular rhythm GI normal to inspection, nondistended, normoactive bowel sounds Extremity no clubbing, cyanosis or edema Skin no rashes or lesions noted Neuro Sensorium / Orientation: sedated on vent Lab / Micro Data Result Diagrams: 05/19/21 11:17 05/19/21 11:17 Labs: Laboratory Results - last 24 hr 05/19/21 05/19/21 05/19/21 11:17 11:17 11:17 WBC 5.9 RBC 3.66 L Hgb 11.9 L Hct 36.9 L MCV 100.8 H MCH 32.5 H MCHC 32.2 RDW Std Deviation 59.5 H RDW Coeff of Jennifer 15.9 H Plt Count 106 L MPV 11.8 Immature Gran % (Auto) 0.200 Neut % (Auto) 56.6 Lymph % (Auto) 29.6 [place] % (Auto) 10.2 H Eos % (Auto) 2.7 Baso % (Auto) 0.7 Absolute Neuts (auto) 3.3 Absolute Lymphs (auto) 1.74 Nucleated RBC % 0 PT INR APTT Sodium 138 Potassium 4.8 Chloride 107 Carbon Dioxide 25.0 Anion Gap 6 BUN 45 H Creatinine 2.98 H Estim Creat Clear Calc 20.95 Est GFR (MDRD) Af Amer 27 L Est GFR (MDRD) Non-Af 22 L BUN/Creatinine Ratio 15.1 Glucose 129 H Lactic Acid 3.1 H* Calcium 9.4 Troponin I High Sens 40.8 Urine Color Urine Clarity Urine pH Ur Specific [place] Urine Protein Urine Glucose (UA) Urine Ketones Urine Occult Blood Urine Nitrite Urine Bilirubin Urine Urobilinogen Ur Leukocyte Esterase Urine RBC Urine WBC Ur Squamous Epith Cells Ur Renal Epithelial Cell Urine Bacteria Hyaline Casts Urine Mucus 05/19/21 05/19/21 11:17 11:25 WBC RBC Hgb Hct MCV MCH MCHC RDW Std Deviation RDW Coeff of Jennifer Plt Count MPV Immature Gran % (Auto) Neut % (Auto) Lymph % (Auto) [place] % (Auto) Eos % (Auto) Baso % (Auto) Absolute Neuts (auto) Absolute Lymphs (auto) Nucleated RBC % PT 29.5 H INR 2.9 APTT 47.3 H Sodium Potassium Chloride Carbon Dioxide Anion Gap BUN Creatinine Estim Creat Clear Calc Est GFR (MDRD) Af Amer Est GFR (MDRD) Non-Af BUN/Creatinine Ratio Glucose Lactic Acid Calcium Troponin I High Sens Urine Color Yellow Urine Clarity Clear Urine pH 6.0 Ur Specific [place] 1.015 Urine Protein 100 H Urine Glucose (UA) Normal Urine Ketones Negative Urine Occult Blood 150 H Urine Nitrite Negative Urine Bilirubin Negative Urine Urobilinogen Normal Ur Leukocyte Esterase Negative Urine RBC 10-25 SEEN Urine WBC 0-5 SEEN Ur Squamous Epith Cells 0-5 SEEN Ur Renal Epithelial Cell 0-5 SEEN Urine Bacteria 1+ Hyaline Casts 0-5 SEEN Urine Mucus 0 SEEN Rhythm Strip Rhythm Strip: Paced Rate: 71 Ectopy: None Radiology Impression Brain CT 05/19/21 11:12 IMPRESSION: Chronic involutional changes of the brain. Partial opacification of the right sphenoid sinus. Electronically Signed: Donte Álvarez MD at 12:13 EDT , Service support , Chest X-Ray 05/19/21 11:12 IMPRESSION: The tip of the endotracheal tube is at 4.7 cm proximal to papa. Cardiomegaly and mild degree of vascular congestion. Electronically Signed: Donte Álvarez MD at 12:13 EDT , Service support , Charges/Coding Procedures Hospitalists Procedures: [id number] Critial Care 1st Hr
[2021-05-19 14:43] LABS: Thyroid Stim Hormone (TSH) 4.66 uIU/mL (0.358-3.74)
[2021-05-19 15:00] LABS: Allen Test Positive; Base Excess 0 mmol/L (-2 to +2); Bicarbonate 23.9 mmol/L (22-26); Blood Gas Specimen Type ART; FI02 30; Mode AC; O2 Delivery Device ET Tube; PEEP 5; PO2 90 mmHG (75-100); RR 14; SITE R Radial; SO2 98 % (95-99); Total Carbon Dioxide 25 mmol/L; Vt 450; pCO2 33.2 mmHg (35-45); pH 7.46 (7.35-7.45)
[2021-05-19 15:20] LABS: Reflex Lactate? Y
[2021-05-19 15:25] LABS: T4 Free Direct 1.34 ng/dL (0.76-1.46)
[2021-05-19] MEDS: 0.9% Normal Saline 1,000 ML 125 ML IV (15:48)
[2021-05-19] MEDS: 0.9% Saline Lock 10 ML Syringe IV ×2 (15:50→17:41)
[2021-05-19 16:17] LABS: Lactic Acid 0.8 mmol/L (0.4-1.9)
[2021-05-19 16:28] LABS: Troponin-I HS 157.2 pg/mL (3.0-78.5)
[2021-05-19] MEDS: Propofol 10MG/Ml 1,000 MG/100 ML Bottle 10.2 MG CONT INF (17:05)
[2021-05-19] MEDS: TITRATION PARAMETER CHANGE 1 EACH IV (17:40)
[2021-05-19 18:05] LABS: Bedside Glucose 74 mg/dL (70-110)
--- NOTE | 2021-05-19 18:21 | CON.PCM.CA_ITS ---
Assessment & Plan Assessment/Plan (1) History of aortic valve replacement: PLAN: The patient has a history of a third aortic valve replacement with the current valve being a mechanical valve. He does need to continue AHA antibiotic prophylaxis and anticoagulant therapy. Based upon his repeat event it is not unreasonable to reassess his valvular anatomy and physiology with a follow-up transthoracic echocardiogram. (2) History of mitral valve repair: PLAN: The patient is status post mitral valve repair as noted. Again he does need to continue AHA antibiotic prophylaxis. (3) Paroxysmal ventricular tachycardia: PLAN: The patient has a history of paroxysmal ventricular dysrhythmias. Based upon his most recent [facility] pacemaker interrogation from 02-28-2021 and his current pacemaker interrogation and stay there is no report of any recurrent ventricular dysrhythmias. (4) Atrial flutter: QUALIFIERS: Atrial flutter type: typical Qualified Code(s): I48.3 - Typical atrial flutter PLAN: The patient has a history of atrial flutter. He is status post AV node ablation. He does have a biventricular pacemaker in place. He has continued medical therapy with anticoagulant therapy. (5) History of atrioventricular chiquita ablation: PLAN: The patient is status post an AV chiquita ablation. He has received a permanent pacemaker. His permanent pacemaker was upgraded to a biventricular [employer]Y ROOM OPERATOR pacemaker secondary to concerns of pacemaker mediated cardiomyopathy. (6) Biventricular cardiac pacemaker in situ: PLAN: The patient's pacemaker was interrogated this day by the company site safety representative. It was reported as functioning appropriately. 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 There is been concerns in the past that this may have been pacemaker induced. The patient did have upgrade of his permanent pacemaker to a biventricular DRY ROOM OPERATOR pacemaker. His most recent LV wall motion systolic function is as noted. (8) CAD (coronary artery disease): PLAN: He does have a history of CAD-none angiographically significant based upon his previous [facility] diagnostic cardiac catheterization. At the present time he does have an abnormal high-sensitivity troponin I level. Based upon his cardiovascular history, event of this day, previous events, and his objective findings it would not be unreasonable to consider the patient for repeat evaluation with diagnostic cardiac catheterization. (9) Non-ST elevation (NSTEMI) myocardial infarction: PLAN: Again the patient does have abnormal cardiac enzymes raising concerns of a non-ST segment elevation CT. As noted it is unclear whether this is a primary event versus a type II event secondary to supply demand mismatch brought out by other etiology superimposed upon his chronic medical conditions and his chronic renal insufficiency. At the present time, as there is been no other obvious explanation for his recurrent events and noting his objective findings there may be concern as to progression of his underlying CAD. Thus consideration for diagnostic cardiac catheterization is not unreasonable noting that he is at increased risk for such procedures based upon having to temporarily interrupt his anticoagulant therapy being used to support his third aortic valve replacement (mechanical) and his underlying renal insufficiency based upon concerns of IV contrast related nephropathy. (10) Cardiopulmonary arrest with successful resuscitation: PLAN: The patient is reported as having a cardiopulmonary arrest. The etiology is unclear at this time of his recurrent event. At the present time he does have an abnormal high-sensitivity troponin I level. It is unclear whether this is part of his primary event from a CAD mediated event versus being secondary to his CPR superimposed upon his other underlying cardiovascular disease issues and all superimposed upon his chronic renal insufficiency He is being monitored. Thus far he has not had any definitive cardiac dysrhythmias found to explain his event. Based upon his recurrent events and his objective findings there may be concern as to whether or not his underlying CAD has progressed and is involved. Thus it would not be unreasonable to consider repeat cardiac catheterization to reassess his coronary anatomy. Also depending upon his findings he may need to have further evaluation by electrophysiology with respect to EPS to assist in his evaluation care and whether or not he does need alteration of his biventricular DRY ROOM OPERATOR pacemaker to a biventricular ICD. (11) Infectious endocarditis: QUALIFIERS: Chronicity: chronic PLAN: The patient has a history of underlying infectious endocarditis. He has been chronic antibiotic therapy. He should continue his chronic antibiotic therapy to minimize the risk of any recurrent acute infectious endocarditis events involving his underlying valvular heart disease as he is already had multiple open heart surgery procedures and has been told that he is not an ideal candidate for repeat open heart surgery /valvular repair/replacement procedure. (12) Pure hypercholesterolemia: PLAN: The patient should continue lipid evaluation and medical therapy as deemed appropriate. (13) Benign essential hypertension: PLAN: The patient's blood pressure will need to be followed and his medicines adjusted accordingly. (14) 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, stage III (moderate): PLAN: The patient does have chronic renal insufficiency. This has to be taken into consideration with his medical management as well as consideration for studies such as cardiac catheterization involving IV contrast based upon the concerns of contrast mediated nephropathy. Thus, nephrology may need to be involved in his ongoing evaluation and care. Addt'l Comments Overall, this is a complex cardiovascular/noncardiovascular patient. He has had cardiovascular care performed locally and at [facility]. He has undergone evaluation and care for 3 syncopal events (1 remotely and one earlier this year) and now presents for a recurrent syncopal event/cardiopulmonary arrest. Today's event has led to the aforementioned evaluation and findings. Based upon his complex history and his ongoing events the patient will continue to be monitored. He will have follow-up laboratory studies/noninvasive studies as deemed appropriate. However, it was felt the patient should be considered for a tertiary care center evaluation at [facility] with respect to consideration for diagnostic cardiac catheterization as noted above as well as EP consultation for consideration for EPS barring another etiology to explain his recurrent cardiovascular events. Thus, it would be recommended that the patient be transferred for [facility] for further advance cardiovascular evaluation and care. The patient's case has been previously discussed with Dr. Kaur, Dr. Weeks, and Dr. Hernandez. This note was generated using a voice recognition system and there may be incorrect words, spelling or punctuation that were not noted when reviewing the office note prior to saving. HPI Consult Data Date of Consult: 05/19/21 HPI Narrative HPI Narrative: CHRISTIAN RICHMOND, is a 71 year old white male who presents for ocular consultation secondary to concerns of a possible cardiac arrest situation requiring transient CPR and subsequently mechanical intubation/ventilation and placement in the ICU superimposed upon a history of an underlying aortic valve replacement (x3), mitral valve insufficiency/repair, atrial dysrhythmia with atrial flutter/tachycardia with high-grade AV block status post AV sequential pacemaker placement, status post AV node ablation, status post permanent pacemaker upgrade to a biventricular pacemaker secondary to concerns of pacem mitch induced cardiomyopathy, CAD-previously thought to be nonangiographically significant, with a history of infectious endocarditis on chronic antibiotic therapy. He has been followed as an outpatient. He has had 2 previous events of syncope for which she has undergone noninvasive evaluation with no definitive etiology other than the possibility of dehydration and orthostasis and a possible vas ovagal mediated event. He has been evaluated for these events locally and at [facility] (the site of his previous advanced cardiovascular care). Today, according to the [facility] medical staff, he was reported as having a syncopal event. His was present. There was a question as to whether or not he did not have a pulse or a pressure or respirations. CPR was performed briefly. The EMS was contacted. According to the EMS ECG he appeared to be in an underlying biventricular paced rhythm. He was brought to [facility] for further evaluation. He has undergone subsequent laboratory evaluation which has demonstrated a positive high-sensitivity troponin I level. His ECG demonstrated the appearance of an underlying biventricular paced rhythm. He was also mechanically intubated/ventilated and placed in the ICU. He has also undergone permanent pacemaker interrogation per the [employer] site safety representative. Per the report given to the ICU staff his pacemaker appeared to be functioning appropriately with no alarms or alerts detected. The patient had an echocardiogram performed at [facility] on 02-28-2021 as part of his evaluation for his second syncopal event. Per the report he was status post mechanical AVR and mitral valve ring/repair with a probable ventricular paced rhythm with a dilated LV with a low normal to mildly impaired LVEF with right ventricular enlargement with moderate dysfunction with comments of mild to moderate MR, mild MS, and an estimated RV systolic pressure of 77 mmHg. He subsequently underwent follow-up pharmacologic stress nuclear imaging study at [facility]. The results are as noted below. He did not proceed with diagnostic cardiac catheterization. He did have a previous cardiac catheterization at [facility] on 03-09-2009. Per the report the LAD had 10 to 25% stenosis, the LCx had 10 to 25% stenosis, the RCA system was noted to have plaque disease. His most recent open heart surgery was performed on 08-24-2003 at [facility] which was his third reoperative aortic valve replacement with a #21 [place] valve and a mitral valve repair with a #28 Brady ring. Of note, the patient has stated that he has been told in the past based upon his complex cardiovascular disease with 3 open heart surgeries and his history of infectious endocarditis that he was not believed to be a candidate for repeat valvular repair/replacement. Thus he is continued on his AHA antibiotic prophylaxis, his anticoagulant therapy, and his chronic antibiotic therapy. [facility] Medical History (Updated 05/19/21 @ 18:[address] 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, stage III (moderate) Diffuse large b-cell lymphoma, extranodal and solid organ sites GI bleed GI bleed Gout History of DVT (deep vein thrombosis) Hypothyroidism (acquired) Infectious endocarditis MRSA (methicillin resistant Staphylococcus aureus) infection Non-rheumatic mitral regurgitation Non-rheumatic mitral valve stenosis Non-ST elevation (NSTEMI) myocardial infarction MIA (obstructive sleep apnea) Paroxysmal ventricular tachycardia Pure hypercholesterolemia Rheumatic aortic stenosis Rheumatic mitral insufficiency TIA (transient ischemic attack) (~11/19/15) Home Medications multivitamin with folic acid 1 tab PO QODAY 06/06/16 [History Last Taken 10/26/20 17:00] allopurinol 100 mg PO DINNER 08/29/17 [History Last Taken 10/26/20 17:00] calcitriol 0.25 mg PO DINNER 08/29/17 [History Last Taken 10/26/20 17:00] doxycycline hyclate 100 mg capsule 100 mg PO BID #180 cap 01/18/18 [Rx Last Taken 10/27/20 09:00] ferrous sulfate 325 mg (65 mg iron) tablet 65 mg PO DINNER tab 11/21/18 [History Last Taken 10/26/20 17:00] cyclobenzaprine 10 mg PO QHS 12/31/18 [History Last Taken 10/26/20 22:00] furosemide 20 mg tablet 20 mg PO DAILY #90 tab 01/27/21 [Rx Last Taken Unknown] sodium bicarbonate 650 mg tablet 650 mg PO BID tablet 03/01/21 [History Last Taken Unknown] levothyroxine 75 mcg tablet 75 mcg PO DAILY #90 tab 04/14/21 [Rx Last Taken Unknown] isosorbide mononitrate 30 mg tablet,extended release 24 hr 30 mg PO DAILY #90 tab 04/25/21 [Rx Last Taken Unknown] warfarin 6 mg tablet See Rx Instructions .ROUTE .COMPLEX #90 tab 05/06/21 [Rx Last Taken Unknown] carvedilol 3.125 mg PO BID 05/19/21 [History Last Taken Unknown] pantoprazole 40 mg PO DAILY 05/19/21 [History Last Taken Unknown] tamsulosin 0.4 mg PO DINNER 05/19/21 [History Last Taken Unknown] Allergy/AdvReac Type Severity Reaction Status Date / Time No Known Allergies Allergy Verified 05/19/21 11:38 Family History Father CAD (coronary artery disease) CABG Brother CAD (coronary artery disease) CABG Mother Diabetes Sister Breast cancer Diabetes Sister Cancer breast Diabetes Surgical History (Updated 05/19/21 @ 18:[address] Jeff Grullon MD) dual chamber pacemaker implantation (~10/2010) History of aortic valve replacement (~08/2003) History of appendectomy History of atrioventricular chiquita ablation History of cholecystectomy History of evacuation of hematoma History of mechanical aortic valve replacement (~1986) History of mitral valve repair (~08/2003) Social History Smoking Status: Never smoker alcohol intake: never substance use type: does not use caffeine: No what type of physical activity do you participate in: weight training and other details: Nustep frequency: 3-4 times per week duration: 45-60 minutes/day seatbelt use: always do you feel safe at home: Yes ROS Constitutional Constitutional: Reports as per HPI Eyes Eyes: Reports as per HPI ENT HEENT: Reports as per HPI Cardiovascular Cardiovascular: Reports syncope Respiratory/Chest Respiratory/Chest: Reports as per HPI Gastrointestinal Gastrointestinal: Reports as per HPI Genitourinary Genitourinary: Reports as per HPI Musculoskeletal Musculoskeletal: Reports as per HPI Physical Exam Narrative The patient is in the ICU currently mechanically intubated/ventilated and sedated. Resp clear to auscultation bilaterally Cardio regular rate, regular rhythm and S1 normal heart sound Heart Sounds: prosthetic sounds crisp prosthetic S2 GI normal to inspection, nondistended, normoactive bowel sounds Extremity no pedal edema Skin no rashes or lesions noted Procedure Criteria Type of Procedure Procedure Type: Elective Elective Risks - COVID COVID Risk Discussion: The surgeon/proceduralist and patient have discussed in detail the risk of exposure to and/or potential harm posed by the COVID-19 virus with having a surgery/procedure at this time versus the risk of delaying the surgery/procedure. It is not possible to know either the risk of delaying the surgery or procedure or chance of getting an infection with perfect accuracy, but a joint decision was made between the patient and the surgeon/proceduralist to proceed at this time with the scheduled surgery/procedure as indicated on the consent form. Objective Data Vital Signs: Vital Signs Temp Pulse Resp BP Pulse Ox 96.7 F L 70 14 138/60 H 100 05/19/21 18:00 05/19/21 18:00 05/19/21 18:00 05/19/21 18:00 05/19/21 18:00 Oxygen Flow Rate (L/min) 15 Oxygen Delivery Method Mechanical Ventilator Weight: 186 lb 8 oz Body Mass Index (BMI) 29.2 Intake & Output: Intake and Output for Last 24 Hours 05/17/21 05/18/21 05/19/21 23:59 23:59 23:59 Intake Total 347.77 / 347.77 Output Total 625 / 625 Balance -277.23 / -277.23 Lab / Micro Data Result Diagrams: 05/19/21 11:17 05/19/21 11:17 Labs: Laboratory Results - last 24 hr 05/19/21 05/19/21 05/19/21 11:17 11:17 11:17 WBC 5.9 RBC 3.66 L Hgb 11.9 L Hct 36.9 L MCV 100.8 H MCH 32.5 H MCHC 32.2 RDW Std Deviation 59.5 H RDW Coeff of Jennifer 15.9 H Plt Count 106 L MPV 11.8 Immature Gran % (Auto) 0.200 Neut % (Auto) 56.6 Lymph % (Auto) 29.6 Marin % (Auto) 10.2 H Eos % (Auto) 2.7 Baso % (Auto) 0.7 Absolute Neuts (auto) 3.3 Absolute Lymphs (auto) 1.74 Nucleated RBC % 0 PT INR APTT Sodium 138 Potassium 4.8 Chloride 107 Carbon Dioxide 25.0 Anion Gap 6 BUN 45 H Creatinine 2.98 H Estim Creat Clear Calc 20.95 Est GFR (MDRD) Af Amer 27 L Est GFR (MDRD) Non-Af 22 L BUN/Creatinine Ratio 15.1 Glucose 129 H Lactic Acid 3.1 H* Calcium 9.4 Troponin I High Sens 40.8 TSH Free T4 Urine Color Urine Clarity Urine pH Ur Specific Redstone Urine Protein Urine Glucose (UA) Urine Ketones Urine Occult Blood Urine Nitrite Urine Bilirubin Urine Urobilinogen Ur Leukocyte Esterase Urine RBC Urine WBC Ur Squamous Epith Cells Ur Renal Epithelial Cell Urine Bacteria Hyaline Casts Urine Mucus POC Glucose 05/19/21 05/19/21 05/19/21 11:17 11:17 11:17 WBC RBC Hgb Hct MCV MCH MCHC RDW Std Deviation RDW Coeff of Jennifer Plt Count MPV Immature Gran % (Auto) Neut % (Auto) Lymph % (Auto) Marin % (Auto) Eos % (Auto) Baso % (Auto) Absolute Neuts (auto) Absolute Lymphs (auto) Nucleated RBC % PT 29.5 H INR 2.9 APTT 47.3 H Sodium Potassium Chloride Carbon Dioxide Anion Gap BUN Creatinine Estim Creat Clear Calc Est GFR (MDRD) Af Amer Est GFR (MDRD) Non-Af BUN/Creatinine Ratio Glucose Lactic Acid Calcium Troponin I High Sens TSH 4.66 H Free T4 1.34 Urine Color Urine Clarity Urine pH Ur Specific [place] Urine Protein Urine Glucose (UA) Urine Ketones Urine Occult Blood Urine Nitrite Urine Bilirubin Urine Urobilinogen Ur Leukocyte Esterase Urine RBC Urine WBC Ur Squamous Epith Cells Ur Renal Epithelial Cell Urine Bacteria Hyaline Casts Urine Mucus POC Glucose 05/19/21 05/19/21 05/19/21 11:25 15:45 15:45 WBC RBC Hgb Hct MCV MCH MCHC RDW Std Deviation RDW Coeff of Jennifer Plt Count MPV Immature Gran % (Auto) Neut % (Auto) Lymph % (Auto) Marin % (Auto) Eos % (Auto) Baso % (Auto) Absolute Neuts (auto) Absolute Lymphs (auto) Nucleated RBC % PT INR APTT Sodium Potassium Chloride Carbon Dioxide Anion Gap BUN Creatinine Estim Creat Clear Calc Est GFR (MDRD) Af Amer Est GFR (MDRD) Non-Af BUN/Creatinine Ratio Glucose Lactic Acid 0.8 Calcium Troponin I High Sens 157.2 H* TSH Free T4 Urine Color Yellow Urine Clarity Clear Urine pH 6.0 Ur Specific Redstone 1.015 Urine Protein 100 H Urine Glucose (UA) Normal Urine Ketones Negative Urine Occult Blood 150 H Urine Nitrite Negative Urine Bilirubin Negative Urine Urobilinogen Normal Ur Leukocyte Esterase Negative Urine RBC 10-25 SEEN Urine WBC 0-5 SEEN Ur Squamous Epith Cells 0-5 SEEN Ur Renal Epithelial Cell 0-5 SEEN Urine Bacteria 1+ Hyaline Casts 0-5 SEEN Urine Mucus 0 SEEN POC Glucose 05/19/21 18:00 WBC RBC Hgb Hct MCV MCH MCHC RDW Std Deviation RDW Coeff of Jennifer Plt Count MPV Immature Gran % (Auto) Neut % (Auto) Lymph % (Auto) Marin % (Auto) Eos % (Auto) Baso % (Auto) Absolute Neuts (auto) Absolute Lymphs (auto) Nucleated RBC % PT INR APTT Sodium Potassium Chloride Carbon Dioxide Anion Gap BUN Creatinine Estim Creat Clear Calc Est GFR (MDRD) Af Amer Est GFR (MDRD) Non-Af BUN/Creatinine Ratio Glucose Lactic Acid Calcium Troponin I High Sens TSH Free T4 Urine Color Urine Clarity Urine pH Ur Specific [place] Urine Protein Urine Glucose (UA) Urine Ketones Urine Occult Blood Urine Nitrite Urine Bilirubin Urine Urobilinogen Ur Leukocyte Esterase Urine RBC Urine WBC Ur Squamous Epith Cells Ur Renal Epithelial Cell Urine Bacteria Hyaline Casts Urine Mucus POC Glucose 74 ABG Data ABG results: ABG 05/19/21 14:57 Specimen Type ART Sample Site R Radial pH 7.46 H Bicarbonate Actual 23.9 Total CO2 25 Base Excess 0 O2 Saturation 98 O2 % 30 ABG pCO2 33.2 L ABG pO2 90 German Test Positive Respiration Rate 14 O2 Delivery Device ET Tube Vent Mode AC Tidal Volume 450 POC PEEP 5 Rhythm Strip Rhythm Strip: Paced Rate: 71 Ectopy: None Cardiology Labs/Tests 05/19/21 11:17: WBC 5.9, RBC 3.66 L, Hgb 11.9 L, Hct 36.9 L, MCV 100.8 H, MCH 32.5 H, MCHC 32.2, Plt Count 106 L, MPV 11.8, Immature Gran % (Auto) 0.200, Neut % (Auto) 56.6, Lymph % (Auto) 29.6, Marin % (Auto) 10.2 H, Eos % (Auto) 2.7, Baso % (Auto) 0.7, Absolute Neuts (auto) 3.3, Nucleated RBC % 0 05/19/21 11:17: Sodium 138, Potassium 4.8, Chloride 107, Carbon Dioxide 25.0, Anion Gap 6, BUN 45 H, Creatinine 2.98 H, Est GFR (MDRD) Af Amer 27 L, Est GFR (MDRD) Non-Af 22 L, BUN/Creatinine Ratio 15.1, Glucose 129 H, Calcium 9.4 05/19/21 11:17: Lactic Acid 3.1 H* 05/19/21 11:17: PT 29.5 H, INR 2.9, APTT 47.3 H 05/19/21 11:25: Urine Color Yellow, Urine Clarity Clear, Urine pH 6.0, Ur Specific [place] 1.015, Urine Protein 100 H, Urine Glucose (UA) Normal, Urine Ketones Negative, Urine Occult Blood 150 H, Urine Nitrite Negative, Urine Bilirubin Negative, Urine Urobilinogen Normal, Ur Leukocyte Esterase Negative, Urine RBC 10-25 SEEN, Urine WBC 0-5 SEEN 05/19/21 14:57: pH 7.46 H, Bicarbonate Actual 23.9, Base Excess 0, O2 Saturation 98, ABG pCO2 33.2 L, ABG pO2 90, German Test Positive 05/19/21 15:45: Lactic Acid 0.8 Rhythm: Electronic ventricular paced rhythm EKG: Electronic biventricular pacemaker ECHO: As noted above Stress Test: Stress Test Report Date: 04-05-2021 Procedure: Pharmacologic stress nuclear imaging study Indications: Shortness of breath/dyspnea; syncope; cardiac dysrhythmia; status post permanent pacemaker; status post aortic valve replacement; status post mitral valve repair Consent: Per the patient Procedure: The patient underwent pharmacologic (Regadenoson 0.4mg ) evaluation with a peak heart rate of 81 beats per minute (54%predicted maximal heart rate) and a peak blood pressure of 142/64 mmHg. The baseline ECG demonstrated electronic ventricular paced rhythm. The peak pharmacologic ECG demonstrated an electronic ventricular paced rhythm. There were no cardiac dysrhythmias pretest, during pharmacologic infusion, or recovery. There was no complaint of chest discomfort during pharmacologic infusion or recovery. The examination was discontinued secondary to completion of protocol. Impression: 1. Pharmacologic (Regadenoson) evaluation 2. Peak pharmacologic ECG with an electronic ventricular paced rhythm. 3. There were no cardiac dysrhythmias pretest, during pharmacologic infusion, or recovery. 4. Nuclear images pending Myocardial perfusion imaging study: Technique: The patient was injected with 11.8 millicuries of technetium 99m Cardiolite and subsequently rest SPECT Cardiolite nuclear imaging was obtained in the horizontal long, vertical long, and short axis views. The patient underwent pharmacologic (Regadenoson) evaluation with a peak heart rate of 81 beats per minute (54% percent predicted maximal heart rate) and a peak blood pressure of 142/64 mmHg. The patient was injected with 35.0 millicuries of technetium 99m Cardiolite and subsequently stress SPECT Cardiolite nuclear imaging was obtained in the horizontal long, vertical long, and short axis views. A gated Cardiolite study at peak stress was obtained. Interpretation: Rest and stress SPECT Cardiolite nuclear imaging status post realignment, normalization, and attenuation correction demonstrate the appearance of diminished myocardial perfusion/tracer uptake in portions of the distal inferior segments without significant change between rest and stress. There is diminished end systolic thickening and brightening. The gated Cardiolite study demonstrates diminished myocardial thickening and inward wall motion. The reported LVEF is 45%. Impression: 1. Rest and stress SPECT her nuclear imaging demonstrate myocardial perfusion changes potentially compatible with an area of previous myocardial injury/infarction involving portions of the distal inferior segments although soft tissue attenuation/artifact cannot necessarily be excluded with no myocardial perfusion changes considered diagnostic for associated stress-induced myocardial ischemia. 2. The gated Cardiolite study reports an LVEF of 45%. Cardiac Cath: As noted above CT Surgery: As noted above Radiography Diagnostic Testing: Radiology Impression Brain CT 05/19/21 11:12 IMPRESSION: Chronic involutional changes of the brain. Partial opacification of the right sphenoid sinus. Electronically Signed: Donte Álvarez MD at 12:13 EDT , Service support , Chest X-Ray 05/19/21 11:12 IMPRESSION: The tip of the endotracheal tube is at 4.7 cm proximal to papa. Cardiomegaly and mild degree of vascular congestion. Electronically Signed: Donte Álvarez MD at 12:13 EDT , Service support ,
[2021-05-19 18:37] LABS: Troponin-I HS 185.8 pg/mL (3.0-78.5)
[2021-05-19] MEDS: Carvedilol 3.125 MG TABLET PO (21:11)
[2021-05-19] MEDS: Doxycycline 100 MG CAPSULE PO (21:11)
[2021-05-19 22:15] LABS: Troponin-I HS 160.8 pg/mL (3.0-78.5)
--- NOTE | 2021-05-19 23:12 | NURSING ---
Patient left at 22:45 with [employer] flight to go to [facility]. Patient was still on the ventilator and propofol gtt. Patient did seem comfortable at this time and resting while they transported him out of the room.
== END 2021-05-19 22:45 | disposition short-term general hospital (02) | DRG 280 ==
LOC: ED 12:36 → ICU 16:23
PROVIDERS: Internal Medicine Critical Care Medicine; Admitting Provider Student in an Organized Health Care Education/Training Program; Emergency Provider Emergency Medicine; PCP Family Medicine; Visit Provider Student in an Organized Health Care Education/Training Program
DX: I21.4 Non-ST elevation (NSTEMI) myocardial infarction (principal); J96.01 Acute respiratory failure with hypoxia; I33.0 Acute and subacute infective endocarditis; I42.9 Cardiomyopathy, unspecified; I48.92 Unspecified atrial flutter; I47.2 Ventricular tachycardia; N18.4 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, stage 4 (severe); I12.9 Hypertensive chronic kidney disease with stage 1 through stage 4 chronic kidney disease, or unspecified chronic kidney disease; I08.0 Rheumatic disorders of both mitral and aortic valves; R79.1 Abnormal coagulation profile; I25.10 Atherosclerotic heart disease of native coronary artery without angina pectoris; E78.00 Pure hypercholesterolemia, unspecified; E03.9 Hypothyroidism, unspecified; M10.9 Gout, unspecified; G47.33 Obstructive sleep apnea (adult) (pediatric); Z79.890 Hormone replacement therapy; Z79.2 Long term (current) use of antibiotics; Z79.01 Long term (current) use of 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; Z79.899 Other long term (current) drug therapy; I25.2 Old myocardial infarction; Z85.72 Personal history of non-Hodgkin lymphomas; Z86.73 Personal history of transient ischemic attack (TIA), and cerebral infarction without residual deficits; Z86.14 Personal history of Methicillin resistant Staphylococcus aureus infection; Z86.718 Personal history of other venous thrombosis and embolism; Z95.0 Presence of cardiac pacemaker; Z95.2 Presence of prosthetic heart valve
CPT/HCPCS: 31500; 31720; 36415; 36600; 51702; 70450; 71045; 80048; 81001; 82803; 82962; 83605; 84439; 84443; 84484; 85025; 85610; 85730; 87070; 87205; 93005; 94002; 99251; 99285; J7030; A4216; G0463; J0330

== ENCOUNTER 2021-06-15 09:14 | Outpatient (RCR) | payer MEDICARE, OTHER, SELFPAY ==
[2021-03-24 09:45] VITALS: BMI 29.4
[2021-05-19 14:32] VITALS: BMI 29.2
[2021-05-30 14:36] LABS: International Normalized Ratio 3.8; Prothrombin Time (Protime)PT. 36.4 SECONDS (11.7-14.9)
[2021-06-15 09:54] LABS: International Normalized Ratio 1.8; Prothrombin Time (Protime)PT. 20.3 SECONDS (11.7-14.9)
[2021-06-15 10:27] LABS: T4 Free Direct 1.22 ng/dL (0.76-1.46)
== END 2021-06-15 18:00 | disposition home or self-care (01) ==
LOC: LAB 09:14
PROVIDERS: Internal Medicine Endocrinology, Diabetes & Metabolism; Family Provider Family Medicine; PCP Family Medicine; Referring Provider Internal Medicine Cardiovascular Disease; Visit Provider Internal Medicine Cardiovascular Disease
DX: Z95.2 Presence of prosthetic heart valve (principal); Z79.01 Long term (current) use of 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; E03.9 Hypothyroidism, unspecified
CPT/HCPCS: 36415; 84439; 84443; 85610

== ENCOUNTER 2021-06-28 13:23 | Inpatient (IN) | payer MEDICARE, OTHER, SELFPAY ==
[2021-06-09 09:59] VITALS: BMI 28.8
[2021-06-28] VITALS (11 sets, daily range): BP systolic 122–150; BP diastolic 42–60; PULSE 70–75; RESP 13–23; TEMP 36.2–37.2; O2SAT 93–99; BMI 28.7; BMI 29.1
--- NOTE | 2021-06-28 13:39 | EKG12_ITS ---
Test Reason : Blood Pressure : / mmHG Vent. Rate : 070 BPM Atrial Rate : 067 BPM P-R Int : 000 ms QRS Dur : 180 ms QT Int : 536 ms P-R-T Axes : 000 -81 114 degrees QTc Int : 578 ms Ventricular-paced rhythm Biventricular pacemaker detected Abnormal ECG Confirmed by SOULEYMANE NIX, AIDEE ([id number]), website/blog editor TRINA VIVAR ([id number]) on 07/01/2021 9:16:13 AM Referred By: ANA M Confirmed By:ALVARADO COMER MD
[2021-06-28] MEDS: 0.9% Normal Saline 1,000 ML 150 ML IV ×2 (13:48→20:34)
[2021-06-28] MEDS: Ondansetron 4 MG/2 ML Vial IV (13:48)
--- NOTE | 2021-06-28 14:00 | CT_ITS ---
STUDY: CT BRAIN WITHOUT CONTRAST REASON FOR EXAM: Male, 71 years old. syncope RADIATION DOSAGE (If Supplied By Facility): CTDIvol = ( 44.99 ) mGy, DLP = ( 796.11 ) mGycm TECHNIQUE: Transaxial CT imaging of the brain was performed without administration of intravenous contrast material. Individualized dose optimization techniques were used for this CT. COMPARISON: 05/19/2021 FINDINGS: Normal soft tissue structures. Normal calvarium. Normal size ventricles and extra-axial spaces for the patient''s age. Normal white matter tracts of the cerebral hemispheres. Normal basal ganglia and thalami. Normal brainstem. Normal cerebellum. There is no intracranial hemorrhage. There are no findings of an acute ischemic infarction. Opacification of the right sphenoid sinus consistent with chronic sinusitis. CT/Brain/Head without Contrast IMPRESSION: Normal unenhanced CT scan of the brain. Electronically Signed: Soto Barber MD at 15:53 EDT Tel , Service support ,
[2021-06-28 14:04] LABS: Absolute Lymphocyte Count 1.59 X10^3/uL (0.83-4.51); Absolute Neutrophil Count 4.3 X10^3/uL (2.0-7.7); Basophil# 0.05 X10^3/uL; Basophil% 0.7 % (0-1); Differential Indicated SCAN CRITERIA MET; Eosinophil# 0.25 X10^3/uL; Eosinophils% 3.6 % (0-5); Hematocrit 36.2 % (40-54); Hemoglobin 11.7 g/dL (13.0-16.5); Lymphocyte # 1.59 X10^3/ul (0.83-4.51); Lymphocyte % 22.7 % (19-41); Mean Corp Hgb Conc 32.3 g/dL (32-36); Mean Corpuscular Hgb 31.8 pg (27.0-32.0); Mean Corpuscular Volume 98.4 fL (80-94); Mean Platelet Vol. 10.7 fl (6.2-12.0); Monocyte# 0.76 X10^3/uL; Monocyte% 10.9 % (0-10); NRBC Flagged by Analyzer 0 % (0-5); Neutrophil # 4.32 X10^3/uL (2.7-7.7); Neutrophil % 61.7 % (47-70); POSITIVE COUNT YES; Platelet Count 99 K/mm3 (150-450); RBC Distribution Width CV 15.7 % (11.6-14.6); RBC Distribution Width SD 56.4 fl (35.1-43.9); Red Blood Count 3.68 M/mm3 (4.6-6.2)
[2021-06-28 14:16] LABS: ALB/GLOB Ratio 0.8 RATIO (0.9-2.4); AST(SGOT) 52 U/L (15-37); Alanine Aminotransfer ALT/SGPT 37 U/L (16-61); Albumin, Serum 3.7 g/dL (3.2-5.0); Alkaline Phosphatase 241 U/L (45-117); Anion Gap 10 (5-15); BUN 53 mg/dL (7-18); BUN/Creat Ratio 18.8 RATIO (10-20); Calcium,Total 9.8 mg/dL (8.5-10.1); Chloride 106 mmol/L (98-107); Creatinine, Serum 2.82 mg/dL (0.70-1.30); EST Glomerular Filtration Rate 24 mL/min (>60); Est Glom Filt Rate - Afr Amer 29 mL/min (>60); Estimated Creatinine Clearance 22.14 ml/min; Globulin 4.6 g/dL (2.2-4.2); Glucose 104 mg/dL (74-106); Lipase 138 U/L (73-393); Potassium 4.1 mmol/L (3.5-5.1); Protein, Total 8.3 g/dL (6.4-8.2); Sodium Level 140 mmol/L (136-145); Troponin-I HS 48.8 pg/mL (3.0-78.5)
[2021-06-28] MEDS: Metoclopramide 10 MG/2 ML Vial 5 MG IV (14:17)
[2021-06-28 14:30] LABS: Platelet Estimate ADEQUATE (ADEQ); Platelet Morphology CLUMPED
--- NOTE | 2021-06-28 15:00 | RAD_ITS ---
EXAM: XR CHEST, 1 VIEW CLINICAL INDICATION: Syncope. TECHNIQUE: Frontal view of the chest. This report was created using [employer] report generation technology. COMPARISON: 05/19/2021. FINDINGS: LUNGS AND PLEURAL SPACES: No confluent infiltrates. No pneumothorax. No effusion. HEART: Cardiomegaly is unchanged. MEDIASTINUM: Central airways and mediastinal contour are unremarkable. BONES/JOINTS: Intact sternal wires. SOFT TISSUES: Unremarkable. TUBES, LINES AND DEVICES: ET tube and OG tube have been removed. Single-chamber pacing lead tip remains in the right ventricle. RAD/Chest 1 View (Portable) IMPRESSION: 1. No acute findings in the chest. 2. Possible mild chronic interstitial lung disease without significant change. HRCT chest will help clarify. Electronically Signed: Claudio Gold MD at 15:27 EDT , Service support ,
--- NOTE | 2021-06-28 15:16 | EX.ED.DYSGE1 ---
HPI History of Present Illness Chief Complaint: Nausea/Vomiting Detail of Chief Complaint: Vomiting and syncope Informant: patient and spouse/S.O. Narrative Narrative: Patient presents to the emergency department via EMS from home. gives most of the history as patient is having dry heaves. He apparently had been outside and noted that he was at the front door and did not look good. He was able to walk into the home. Patient started having dry heaves and then passed out for short time. Patient denies chest pain or shortness of breath. He denies abdominal pain. He had a similar episode per about a month ago and was intubated. Patient had had similar episodes in the past as well and has been to [facility] but no etiology for symptoms have been discovered. Patient has history of aortic valve replacement and is on warfarin therapy. Patient has history of atrial flutter as well as hypertension and history of non-Hodgkin's lymphoma. Prior similar symptoms: Yes PFSH [facility] Medical History Abnormal results of thyroid function studies Anemia Atrial flutter Bacterial endocarditis Benign essential hypertension Biventricular cardiac pacemaker in situ (~05/26/16) CAD (coronary artery disease) Cardiomyopathy in disease classified elsewhere 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, stage III (moderate) Diffuse large b-cell lymphoma, extranodal and solid organ sites GI bleed GI bleed Gout History of DVT (deep vein thrombosis) Hypothyroidism (acquired) Infectious endocarditis MRSA (methicillin resistant Staphylococcus aureus) infection Non-rheumatic mitral regurgitation Non-rheumatic mitral valve stenosis Non-ST elevation (NSTEMI) myocardial infarction MIA (obstructive sleep apnea) Paroxysmal ventricular tachycardia Pure hypercholesterolemia Rheumatic aortic stenosis Rheumatic mitral insufficiency TIA (transient ischemic attack) (~11/19/15) Home Medications multivitamin with folic acid 1 tab PO QODAY 06/06/16 [History Last Taken 10/26/20 17:00] allopurinol 100 mg PO DINNER 08/29/17 [History Last Taken 10/26/20 17:00] calcitriol 0.25 mg PO DINNER 08/29/17 [History Last Taken 10/26/20 17:00] doxycycline hyclate 100 mg capsule 100 mg PO BID #180 cap 01/18/18 [Rx Last Taken 10/27/20 09:00] ferrous sulfate 325 mg (65 mg iron) tablet 65 mg PO DINNER tab 11/21/18 [History Last Taken 10/26/20 17:00] cyclobenzaprine 10 mg PO QHS 12/31/18 [History Last Taken 10/26/20 22:00] furosemide 20 mg tablet 20 mg PO DAILY #90 tab 01/27/21 [Rx Last Taken Unknown] sodium bicarbonate 650 mg tablet 650 mg PO BID tablet 03/01/21 [History Last Taken Unknown] levothyroxine 75 mcg tablet 75 mcg PO DAILY #90 tab 04/14/21 [Rx Last Taken Unknown] isosorbide mononitrate 30 mg tablet,extended release 24 hr 30 mg PO DAILY #90 tab 04/25/21 [Rx Last Taken Unknown] warfarin 6 mg tablet See Rx Instructions .ROUTE .COMPLEX #90 tab 05/06/21 [Rx Last Taken Unknown] carvedilol 3.125 mg PO BID 05/19/21 [History Last Taken Unknown] tamsulosin 0.4 mg PO DINNER 05/19/21 [History Last Taken Unknown] warfarin 1 mg tablet 1 mg PO .COMPLEX 05/30/21 [History Last Taken Unknown] Allergy/AdvReac Type Severity Reaction Status Date / Time No Known Allergies Allergy Verified 06/28/21 13:24 Family History Father CAD (coronary artery disease) CABG Brother CAD (coronary artery disease) CABG Mother Diabetes Sister Breast cancer Diabetes Sister Cancer breast Diabetes Surgical History dual chamber pacemaker implantation (~10/2010) History of aortic valve replacement (~08/2003) History of appendectomy History of atrioventricular chiquita ablation History of cholecystectomy History of evacuation of hematoma History of mechanical aortic valve replacement (~1986) History of mitral valve repair (~08/2003) Social History Smoking Status: Never smoker alcohol intake: never substance use type: does not use caffeine: No what type of physical activity do you participate in: weight training and other details: Nustep frequency: 3-4 times per week duration: 45-60 minutes/day seatbelt use: always do you feel safe at home: Yes ROS ROS ED ROS Narrative Syncope Constitutional Constitutional ED: Reports systems reviewed and no addt'l complaints, except as documented; Denies body ache(s), change in weight or chills Eyes Eyes: Denies acute decrease in peripheral vision, change in vision, double vision or loss of vision ENT ENT ED: Reports none; Denies ear pain, lip swelling, loss taste/smell, neck pain, otalgia or sore throat Cardiovascular Cardiovascular: Reports none; Denies abdominal pain, chest pain with activity, leg edema, lightheadedness, palpitations, rapid heart rate or syncope Respiratory/Chest Respiratory/Chest: Reports none; Denies change in mental status, dry cough, dyspnea, hemoptysis, shortness of breath at rest or shortness of breath with exertion Gastrointestinal Gastrointestinal: Reports none, nausea and vomiting; Denies abdominal pain, change in stool character, diarrhea, hematemesis, hematochezia, melena or rectal bleeding Genitourinary Genitourinary ED: Reports none; Denies abdominal discomfort, anuria, dysuria, genital pain or polyuria Musculoskeletal Musculoskeletal: Reports none; Denies arthralgias, back pain, difficulty walking, extremity pain, muscle weakness or myalgias Integumentary Reports none; Denies abscess or rash Neurologic Neurologic: Reports none; Denies abnormal gait, confusion, focal weakness, frequent falls, headache(s), loss of vision, numbness, paresthesias, radicular pain, vertigo or weakness Psychiatric Psychiatric: Reports systems reviewed and no addt'l complaints, except as documented and none; Denies behavioral changes, confusion, difficulty concentrating, hallucinations, suicidal ideation, tactile hallucinations or visual hallucinations Endocrine Endocrinology: Denies none, cold intolerance, excessive sweating, fatigue or heat intolerance Hematologic/Lymphatic Hematologic/Lymphatic: Reports none; Denies anemia, easy bleeding or easy bruising Allergic/Immunologic Allergic/Immunologic ED: Denies as per HPI, none, lip swelling, mouth swelling, throat swelling, tongue swelling or hives EXAM Physical Exam Narrative Exam Narrative: Pale appearing Const Vital Signs: 06/28/21 13:27 06/28/21 13:32 06/28/21 14:32 Temperature 97.1 F L Temperature Source Temporal Pulse Rate 71 70 70 Respiratory Rate 18 23 H 14 Blood Pressure 144/60 H 144/60 H 124/50 H Blood Pressure Mean 88 88 74 Pulse Ox 94 93 98 Oxygen Delivery Method Room Air Room Air 06/28/21 15:04 Temperature Temperature Source Pulse Rate 70 Respiratory Rate 14 Blood Pressure 122/52 H Blood Pressure Mean 75 Pulse Ox 95 Oxygen Delivery Method Room Air Positive well nourished and well developed General Appearance ED: well developed and NAD HEENT Reports TM's clear and moist mucous membranes normocephalic and atraumatic; Negative for trauma or tenderness Tympanic Membrane ED: Yes TM's clear Eyes PERRL and EOMs intact bilaterally General Eye ED: Negative for pale conjunctiva or scleral icterus Neck no lymphadenopathy, supple and no JVD General: Negative for tenderness Chest Wall inspection of chest normal and palpation of chest normal Chest: Negative for tenderness Resp normal respiratory effort and clear to auscultation bilaterally Effort and Inspection: Negative for respiratory distress or pain with movement Auscultation: Negative for rhonchi, wheezes or diminished lung sounds Cardio regular rate, regular rhythm, S1 normal heart sound, S2 normal heart sound and no murmurs Peripheral Pulses: pulses 2+ throughout GI normal to inspection, nondistended, normoactive bowel sounds, soft to palpation, non-tender, non-distended and no masses GI Narrative: Actively vomiting and dry heaves Back/Spine no CVA tenderness and no thoracic nor lumbar tenderness Extremity normal to inspection General Extremety ED: Negative for edema General Extremity: Negative for edema Neuro oriented x3, CN's II-XII intact bilaterally, no sensory deficits noted and gait normal Sensorium / Orientation: awake, alert, oriented to person, oriented to place and oriented to time Motor Exam: strength 5/5 throughout and strength abnormal Psych mental status grossly normal Skin no rashes or lesions noted and no wounds MDM MDM MDM Narrative Medical decision making narrative: Patient was placed on a media monitor and an IV line established. Patient was given Zofran initially 4 mg IV and initially this did improve his nausea and vomiting however then he started to vomit again prior to going to CT and was given Reglan 5 mg IV. Case will be discussed with hospitalist evaluate patient for admission. Etiology of syncope and symptoms unclear. Lab Data Attestation: I reviewed the patient's lab results. Labs: Laboratory Results - last 24 hr 06/28/21 06/28/21 13:30 13:30 WBC 7.0 RBC 3.68 L Hgb 11.7 L Hct 36.2 L MCV 98.4 H MCH 31.8 MCHC 32.3 RDW Std Deviation 56.4 H RDW Coeff of Jennifer 15.7 H Plt Count 99 L MPV 10.7 Immature Gran % (Auto) 0.400 Neut % (Auto) 61.7 Lymph % (Auto) 22.7 [place] % (Auto) 10.9 H Eos % (Auto) 3.6 Baso % (Auto) 0.7 Absolute Neuts (auto) 4.3 Absolute Lymphs (auto) 1.59 Nucleated RBC % 0 Platelet Estimate ADEQUATE Plt Morphology Comment CLUMPED Sodium 140 Potassium 4.1 Chloride 106 Carbon Dioxide 24.0 Anion Gap 10 BUN 53 H Creatinine 2.82 H Estim Creat Clear Calc 22.14 Est GFR (MDRD) Af Amer 29 L Est GFR (MDRD) Non-Af 24 L BUN/Creatinine Ratio 18.8 Glucose 104 Calcium 9.8 Total Bilirubin 2.10 H AST 52 H ALT 37 Alkaline Phosphatase 241 H Troponin I High Sens 48.8 Total Protein 8.3 H Albumin 3.7 Globulin 4.6 H Albumin/Globulin Ratio 0.8 L Lipase 138 Radiography Chest X-Ray - ED: 1 View Diagnostic Testin view chest x-ray interpreted by myself is cardiomegaly with chronic interstitial changes. Patient has sternotomy wires in place. No significant change noted from prior chest x-ray. Official report from radiology pending. EKG Initial EKG: Comments: Ventricularly paced rhythm with a rate of 70 bpm Prior EKG tracings: available for review Prior: Unchanged Discharge Plan Triage Chief Complaint: Nausea/Vomiting ED Provider: Amy Sellers Dx/Rx/DC Orders Clinical Impression: Syncope, Vomiting Prescriptions: No Action doxycycline hyclate 100 MG capsule 100 mg PO BID Qty: 180 RF: 3 ferrous sulfate 325 mg (65 mg iron) tablet 65 mg PO DINNER RF: 0 multivitamin with folic acid 1 TABLET tablet 1 tab PO QODAY RF: 0 allopurinol 100 MG tablet 100 mg PO DINNER RF: 0 calcitriol 0.25 MCG capsule 0.25 mg PO DINNER RF: 0 cyclobenzaprine 10 MG tablet 10 mg PO QHS RF: 0 carvedilol 3.125 mg tablet 3.125 mg PO BID RF: 0 tamsulosin 0.4 mg capsule 0.4 mg PO DINNER RF: 0 furosemide 20 mg tablet 20 mg PO DAILY Qty: 90 RF: 3 sodium bicarbonate 650 mg tablet 650 mg PO BID RF: 0 levothyroxine 75 mcg tablet 75 mcg PO DAILY Qty: 90 RF: 3 isosorbide mononitrate 30 mg tablet extended release 24 hr 30 mg PO DAILY Qty: 90 RF: 3 warfarin 6 mg tablet See Rx Instructions mg .ROUTE .COMPLEX Qty: 90 RF: 3 warfarin 1 mg tablet 1 mg PO .COMPLEX RF: 0 Primary Care Provider: Vinny Atkinson Referrals: Vinny Atkinson MD [Primary Care Provider] - Disposition Disposition: Acute Care Hospital [facility]
[2021-06-28 15:20] LABS: Lactic Acid 1.2 mmol/L (0.4-1.9)
--- NOTE | 2021-06-28 15:34 | HP.PCM.HOS_ITS ---
HPI - General General Date of Admission: 06/28/21 Date of Service: 06/28/21 Chief Complaint: Syncope with N/V HPI Narrative The patient is a 71 y/o M w/ PMHx: Hx DVT, Hypothyroidism, HTN, HLD, Hx NH Lymphoma, Chronic anemia/Fe Deficiency, PAF s/p ablation, MIA, Hx TIA, Vulvular heart disease w/ hx Infectious endocarditis on chronic doxycycline s/p AVR (mechanical) and MV repair, Cardiomyopathy unclear type s/p pacer/ICD placement, recent history of recurrent syncope with [facility] transfer from [facility] in 05/2021 with questionable cardiac arrest and CPR with intubation and ICU admission with unremarkable non-invasive evaluation as well as neurological assessment who now re-presents to the [facility] ED on 07/29/21 with recent onset on day of presentation nausea, emesis followed by recurrent syncopal event, noted to have been outside initially next to the front door with onset nausea with dry heaves with syncopal event following upon returning into the house. He does report feeling poorly over the last 24 hours. He notes having been vaccinated for COVID. Work-up in the ED included T 97.1, heart rate 71, BP 140/60, respiratory rate 18, initially 94% on room air, CBC with WBC 7, hemoglobin 11.7 (06/03/2021 hemoglobin 11.6), platelets 99 (06/03/2021 platelets 138) without marked shift, pending coags upon requested evaluation of patient, CMP with BUN/creatinine 53/2.82, lactic acid 1.2, total bilirubin 2.10, AST/LT 52/37, alk phos 241, high-sensitivity troponin 48.8, lipase 138, chest x-ray with mild chronic interstitial lung disease uncha nged with no acute cardiopulmonary findings. [facility] Medical History Abnormal results of thyroid function studies Anemia Atrial flutter Bacterial endocarditis Benign essential hypertension Biventricular cardiac pacemaker in situ (~05/26/16) CAD (coronary artery disease) Cardiomyopathy in disease classified elsewhere 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, stage III (moderate) Diffuse large b-cell lymphoma, extranodal and solid organ sites GI bleed GI bleed Gout History of DVT (deep vein thrombosis) Hypothyroidism (acquired) Infectious endocarditis MRSA (methicillin resistant Staphylococcus aureus) infection Non-rheumatic mitral regurgitation Non-rheumatic mitral valve stenosis Non-ST elevation (NSTEMI) myocardial infarction MIA (obstructive sleep apnea) Paroxysmal ventricular tachycardia Pure hypercholesterolemia Rheumatic aortic stenosis Rheumatic mitral insufficiency TIA (transient ischemic attack) (~11/19/15) Home Medications multivitamin with folic acid 1 tab PO DAILY 06/06/16 [History Last Taken 06/27/21] allopurinol 100 mg PO DINNER 08/29/17 [History Last Taken 06/27/21] calcitriol 0.25 mg PO DINNER 08/29/17 [History Last Taken 06/27/21] doxycycline hyclate 100 mg capsule 100 mg PO BID #180 cap 01/18/18 [Rx Last Taken 06/28/21] ferrous sulfate 325 mg (65 mg iron) tablet 65 mg PO DINNER tab 11/21/18 [History Last Taken 06/27/21] cyclobenzaprine 10 mg PO QHS 12/31/18 [History Last Taken 06/27/21] furosemide 20 mg tablet 20 mg PO DAILY #90 tab 01/27/21 [Rx Last Taken 06/28/21] sodium bicarbonate 650 mg tablet 650 mg PO BID tablet 03/01/21 [History Last Taken 06/28/21] levothyroxine 75 mcg tablet 75 mcg PO DAILY #90 tab 04/14/21 [Rx Last Taken 06/28/21] isosorbide mononitrate 30 mg tablet,extended release 24 hr 30 mg PO DAILY #90 tab 04/25/21 [Rx Last Taken 06/28/21] carvedilol 3.125 mg PO BID 05/19/21 [History Last Taken 06/28/21] tamsulosin 0.4 mg PO DINNER 05/19/21 [History Last Taken 06/27/21] warfarin 1 mg tablet 1 mg PO DINNER 05/30/21 [History Last Taken 06/28/21] warfarin 6 mg PO DINNER 06/28/21 [History Last Taken 06/28/21] Allergy/AdvReac Type Severity Reaction Status Date / Time No Known Allergies Allergy Verified 06/28/21 13:24 Family History Father CAD (coronary artery disease) CABG Brother CAD (coronary artery disease) CABG Mother Diabetes Sister Breast cancer Diabetes Sister Cancer breast Diabetes Surgical History dual chamber pacemaker implantation (~10/2010) History of aortic valve replacement (~08/2003) History of appendectomy History of atrioventricular chiquita ablation History of cholecystectomy History of evacuation of hematoma History of mechanical aortic valve replacement (~1986) History of mitral valve repair (~08/2003) Social History (Updated 06/28/21 @ 17:[address] Lenora Victoria MD) household members: spouse Smoking Status: Never smoker alcohol intake: never substance use type: does not use caffeine: No what type of physical activity do you participate in: weight training and other details: Nustep frequency: 3-4 times per week duration: 45-60 minutes/day seatbelt use: always do you feel safe at home: Yes ROS ROS Narrative Admission Review of Systems: CONSTITUTIONAL: No weight loss, fever, chills, + weakness or fatigue. HEENT: Eyes: No visual loss, blurred vision, double vision or yellow sclerae. Ears, Nose, Throat: No hearing loss, sneezing, congestion, runny nose or sore throat. SKIN: No rash or itching, lesions, wounds. CARDIOVASCULAR: + Syncope. No chest pain, chest pressure or chest discomfort, palpitations, edema, orthopnea. RESPIRATORY: No shortness of breath, cough or sputum, wheezing, hemoptysis. GASTROINTESTINAL: + N/V, anorexia, nausea, No diarrhea, abdominal pain, melena, BRBPR. GENITOURINARY: No dysuria, frequency, urgency or retention. NEUROLOGICAL: + Syncope. No headache, dizziness, paralysis, ataxia, numbness or tingling in the extremities, focal weakness, change in bowel or bladder control, seizure. MUSCULOSKELETAL: + muscle, back pain, joint pain or stiffness. HEMATOLOGIC: + anemia, bleeding or bruising. LYMPHATICS: No enlarged nodes. No history of splenectomy. PSYCHIATRIC: No history of depression or anxiety. ENDOCRINOLOGIC: No reports of sweating, cold or heat intolerance. No polyuria or polydipsia. ALLERGIES: No history of asthma, hives, eczema or rhinitis. Vital Signs Vital Signs Vital Signs: 06/28/21 13:27 06/28/21 13:32 06/28/21 14:32 Temperature 97.1 F L Temperature Source Temporal Pulse Rate 71 70 70 Respiratory Rate 18 23 H 14 Blood Pressure 144/60 H 144/60 H 124/50 H Blood Pressure Mean 88 88 74 Pulse Ox 94 93 98 Oxygen Delivery Method Room Air Room Air 06/28/21 15:04 Temperature Temperature Source Pulse Rate 70 Respiratory Rate 14 Blood Pressure 122/52 H Blood Pressure Mean 75 Pulse Ox 95 Oxygen Delivery Method Room Air Weight Weight: 183 lb 6.793 oz Body Mass Index (BMI) 28.7 Physical Exam Narrative Physical Examination: General: Awake, alert, oriented x 3 and cooperative, seated upright in ED bed in no apparent distress, denies any lightheadedness or dizziness. Skin: Normal color, normal turgor, no icterus, no cyanosis. HEENT: AT/NC, EOMI, PERRLA, mildly dry MM, no carotid bruits or marked JVD noted. Lungs: CTA bilaterally, moderate effort, mild decrease BL bases, no rales, ronchi or wheezing. Heart: Regular rate and rhythm; no gallop, rub audible, notable mechanical click. Abdomen: Soft, NTTP, ND, normal BS, no HSM. Extremities: No cyanosis, no clubbing, minimal bilateral ankle nonpitting edema. Neurological: Patient awake, alert, oriented as noted, cognitive function intact; pupils equally reactive to light and accommodation, cranial nerves II- XII grossly normal, moving all 4 extremities, no focal deficits, strength mildly to moderately global decrease secondary to acute presentation, improving. Psychiatric: Affect appears mildly fatigued otherwise normal, no acute evidence of depressive or anxiety feelings. Results Lab / Micro Data Result Diagrams: 06/28/21 13:30 06/28/21 13:30 Labs: Laboratory Results - last 24 hr 06/28/21 13:30: WBC 7.0, RBC 3.68 L, Hgb 11.7 L, Hct 36.2 L, MCV 98.4 H, MCH 31.8, MCHC 32.3, RDW Std Deviation 56.4 H, RDW Coeff of Jennifer 15.7 H, Plt Count 99 L, MPV 10.7, Immature Gran % (Auto) 0.400, Neut % (Auto) 61.7, Lymph % (Auto) 22.7, [place] % (Auto) 10.9 H, Eos % (Auto) 3.6, Baso % (Auto) 0.7, Absolute Neuts (auto) 4.3, Absolute Lymphs (auto) 1.59, Nucleated RBC % 0, Platelet Estimate ADEQUATE, Plt Morphology Comment CLUMPED 06/28/21 13:30: Sodium 140, Potassium 4.1, Chloride 106, Carbon Dioxide 24.0, Anion Gap 10, BUN 53 H, Creatinine 2.82 H, Estim Creat Clear Calc 22.14, Est GFR (MDRD) Af Amer 29 L, Est GFR (MDRD) Non-Af 24 L, BUN/Creatinine Ratio 18.8, Glucose 104, Calcium 9.8, Total Bilirubin 2.10 H, AST 52 H, ALT 37, Alkaline Ph osphatase 241 H, Troponin I High Sens 48.8, Total Protein 8.3 H, Albumin 3.7, Globulin 4.6 H, Albumin/Globulin Ratio 0.8 L, Lipase 138 06/28/21 14:35: Lactic Acid 1.2 Radiology Impression Chest X-Ray 06/28/21 15:00 IMPRESSION: 1. No acute findings in the chest. 2. Possible mild chronic interstitial lung disease without significant change. HRCT chest will help clarify. 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 1. Syncopal Event: Unclear etiololgy, possibly vasovagal laying with nausea and emesis/dry heaving episodes but unclear, EKG in ED without evidence of acute ischemia, CXR w/ chronic interstitial lung disease changes otherwise no acute cardiopulmonary findings, initial trop normal. Will admit to PCU, place on a monitored bed to assure no acute myocardial infarction with serial cardiac e nzymes and EKGs, maintain on fall precautions, obtain admission orthostatic and AM orthostatic VS if notable, place BP hold parameters on BP medications, recent echocardiogram performed thus we will not repeat, will attempt to ascertain if carotid ultrasound was performed at [facility] with records requested however if not done will perform, will also request interrogation of patient device. Given serial recurrent events and complicated cardiac history per discussion with patient and family request Dr. Grullon consultation. 2. Valvular heart disease with history of infectious endocarditis: Patient with notable valve history, status post aortic valve replacement and eventually mechanical valve as well as mitral valve repair, recent echocardiogram therefore will not repeat. 3. Cardiomyopathy, unclear type: From reports possibly associated with device, status post ICD and pacer, interrogation requested. 4. PAF: Status post ablation as well as pacer/ICD as noted, will continue Coumadin with INR trending as well as patient chronic Coreg regimen. 5. Hypertension: Continue home regimen including Coreg, isosorbide, Lasix with hold parameters, PRN hydralazine. 6. Hyperlipidemia: Patient not on statin therapy per current list, FLP in AM. 7. Chronic Kidney Disease Stage IV: Admission BUN/Cr 53/2.82, baseline renal function 2.6-2.9, most recently 06/03/2021 creatinine 2.95, repeat BMP in AM. 8. Chronic anemia, iron deficiency: Admission hemoglobin 11.7, stable, 06/03/2021 hemoglobin 11.6, continue iron supplementation and trending. 9. Hypothyroidism: Continue home synthroid regimen, TSH pending. 10. History of DVT: We will continue Coumadin with INR trending as noted. 11. BPH: We will continue patient home Flomax regimen. 12. DVT prophylaxis: SCDs, continue patient Coumadin with INR trending. 13. CODE status: Patient BRENT is his who is present. Discussed CODE status at length including difference between FULL code, DNR-CCA and DNR-CC status. Following discussions about the differences in these status, requested Full Code status. Advanced Care Planning Face to Face Time: 16 minutes. Charges/Coding Visit Charges OBSV E&M: 30867 Initial observation care L3 Procedures Hospitalists Procedures: 22179 Advncd Care Plan 30 Min
[2021-06-28 15:42] LABS: International Normalized Ratio 2.8; Prothrombin Time (Protime)PT. 28.7 SECONDS (11.7-14.9)
[2021-06-28 17:03] LABS: Magnesium 2.1 mg/dL (1.6-2.6); Phosphorus 3.9 mg/dL (2.5-4.9)
[2021-06-28 17:58] LABS: Procalcitonin 0.08 ng/mL (0.00-0.09)
[2021-06-28 17:59] LABS: Probe Check PASS
--- NOTE | 2021-06-28 18:39 | NURSING ---
pacemaker check completed labs being drawn
[2021-06-28 19:49] LABS: Troponin-I HS 68.1 pg/mL (3.0-78.5)
--- NOTE | 2021-06-28 20:08 | PCM.CONS.C ---
Assessment & Plan Assessment/Plan (1) Syncope: QUALIFIERS: Syncope type: unspecified Qualified Code(s): R55 - Syncope and collapse PLAN: The patient has had a recurrent near syncope/syncope event. The etiology is uncertain although there are concerns based upon his situation today is whether or not this may have been orthostatic or vasovagal mediated. Thus far there is been no definitive etiology for an underlying acute coronary syndrome. His pacemaker has been interrogated. It appears to be functioning appropriately. There was no report of AT or AF or VT or VF events. He has had previous carotid artery duplex studies performed in [facility] in 2019. Based upon that report in the medical record he did not appear to have any hemodynamically significant carotid artery disease reported. At the present time he has also not been reported as having any other acute neurologic events to explain his near syncope/syncope. He is going to continue to be monitored. At the moment despite monitoring and laboratory follow-up there are no additional cardiovascular procedures planned based upon his recent extensive cardiovascular evaluation at [facility] and [facility] (x2). (2) CAD (coronary artery disease): QUALIFIERS: Coronary Disease-Associated Artery/Lesion type: hoopa artery [place] vs. transplanted heart: hoopa heart PLAN: He does have a history of CAD. He has continued medical therapy. He has not required revascularization therapy. During his recent [facility] evaluation they did not recommend further evaluation with diagnostic cardiac catheterization based upon his recent stress test findings and the concerns of IV contrast related nephropathy on top of his chronic renal insufficiency. (3) History of aortic valve replacement: PLAN: He has undergone echocardiographic follow-up of his aortic valve replacement at [facility] recently. The results are as noted above. They did not recommend additional valvular evaluation/procedures. He was to continue anticoagulant therapy and AHA antibiotic prophylaxis. (4) History of mitral valve repair: PLAN: As noted above he underwent recent echocardiographic follow-up at [facility]. The results are as noted. He has been recommended for continued AHA on antibiotic prophylaxis. (5) Paroxysmal ventricular tachycardia: PLAN: He has a history of PVT. His device interrogation this day demonstrated no VT or VF events. He has been continuing beta-ivana therapy. 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 He was upgraded to a biventricular permanent pacemaker. His most recent [facility] echocardiogram is as noted. At the moment he will continue medical therapy. (7) Atrial flutter: QUALIFIERS: Atrial flutter type: typical Qualified Code(s): I48.3 - Typical atrial flutter PLAN: He has a history of atrial dysrhythmias. He has undergone AV node ablation. This led to permanent pacemaker placement. He has continued medical therapy including anticoagulant therapy. (8) History of atrioventricular chiquita ablation: PLAN: He does have a history of AV node ablation and thus proceeding with permanent pacemaker placement. (9) History of pacemaker: PLAN: His pacemaker has been interrogated this day with the results as noted. It appears to be functioning appropriately. (10) Infectious endocarditis: QUALIFIERS: Chronicity: chronic PLAN: He has a history of infectious endocarditis. As he is on his third aortic valve replacement he was placed on chronic antibiotic suppressive therapy. Thus far there is been no obvious evidence of any recurrent infectious endocarditis. (11) Pure hypercholesterolemia: PLAN: He should continue risk factor evaluation care as deemed appropriate. (12) Benign essential hypertension: PLAN: His blood pressures can be followed for any obvious evidence of hypotension, orthostatic hypotension, or hypertensive events. His medications have recently been adjusted to avoid any hypotensive events. (13) 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, stage III (moderate): PLAN: He does have chronic kidney disease which has to be taken into consideration with his medications as well as any diagnostic studies including those with IV contrast. (14) COVID-19: PLAN: He has now been diagnosed with COVID-19 despite having had the COVID-19 vaccination. It is unclear whether or not his diagnosis is contributing to this particular event of near syncope/syncope. He will continue evaluation care by internal medicine as deemed appropriate. Addt'l Comments At the present time the patient will continue to be monitored. He is going to receive IV fluids based upon concerns of his event being possibly orthostatic or vasovagal mediated. However care has to be given not to allow IV fluids to progress to an IV overload state. Otherwise, at the present time, as noted above, there were no immediate plans for additional cardiovascular diagnostic studies barring a change in his clinical course. Thank you for allowing me to participate in the care of your patient. Please don't hesitate to call if any issues arise. This note was generated using a voice recognition system and there may be incorrect words, spelling or punctuation that were not noted when reviewing the office note prior to saving. HPI Consult Data Date of Consult: 06/28/21 HPI Narrative HPI Narrative: CHRISTIAN RICHMOND, is a 71 year old white male who presents for evaluation of recurrent near syncope/syncope superimposed upon a history of underlying aortic valve replacement x3 with a most recent mechanical aortic valve prosthesis, status post mitral valve repair, a history of atrial fibrillation/flutter, status post AV node ablation, status post permanent pacemaker placement, paroxysmal ventricular tachycardia, status post pacemaker upgrade to a biventricular pacemaker secondary to concerns of pacemaker induced cardiomyopathy, history of infectious endocarditis on chronic antibiotic therapy, hyperlipidemia, hypertension, chronic renal insufficiency, and now diagnosed with COVID-19 (despite having the COVID-19 vaccination earlier this year). The patient states that he was feeling well earlier today. He was outside cleaning out his trash cans. He states then he felt dizzy. He went into his home. He is not sure whether he totally lost consciousness this time compared to other times as he states he remembers the EMS being there. He knows after the EMS was there he had multiple episodes of nausea and emesis. He did not report any chest discomfort prior to or after the event. He had no episodes of acute shortness of breath/dyspnea. There was no report of any obvious palpitations or rapid rates. He was brought to the hospital for further evaluation. From a cardiac standpoint his troponin I level was negative. His ECG demonstrated an underlying electronic ventricular paced rhythm. His chest x-ray was demonstrated as no acute findings with possible mild chronic interstitial lung disease without significant change. His INR was reported at 2.8. His BUN and creatinine were 53 and 2.82. His potassium level was 4.1. He has subsequently had his pacemaker interrogated. Based upon preliminary interrogation he had no obvious AT or AF events or VT or VF events. No alarms were reported. His device was reported as functioning appropriately. Of note, he has had 2 [facility] evaluations earlier this year for similar type events. Based upon his most recent [facility] evaluation he had a noninvasive evaluation performed. On 05-21-2021 he had a transthoracic echocardiogram performed. Based on the [facility] report his left ventricle was reported as dilated with low normal LV systolic function with an LVEF 54% with the right ventricle being normal size with moderate systolic dysfunction and moderate left atrial enlargement. He is status post mitral valve annuloplasty with mild MR. He is status post mechanical AVR which appeared to be well-seated with evidence of mild to moderate perivalvular and probably some degree of valvular regurgitation. There was mild TR. His estimated RV systolic pressure was 47 mmHg. His study was compared to a previous [facility] study which demonstrated no significant changes with the exception of his estimated RV systolic pressure had decreased. While at [facility] he was not recommended for further evaluation with diagnostic cardiac catheterization or EPS. According to the [facility] report there was a question as to whether his events may have been neurologic mediated as well as vasovagal mediated. At the present time he denies any ongoing acute symptoms. He has denied orthopnea or PND or peripheral pitting edema. He states he has been taking his medications as prescribed. [facility] Medical History (Updated 06/28/21 @ 20:[address] 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, stage III (moderate) COVID-19 Diffuse large b-cell lymphoma, extranodal and solid organ sites GI bleed GI bleed Gout History of DVT (deep vein thrombosis) Hypothyroidism (acquired) Infectious endocarditis MRSA (methicillin resistant Staphylococcus aureus) infection Non-rheumatic mitral regurgitation Non-rheumatic mitral valve stenosis Non-ST elevation (NSTEMI) myocardial infarction MIA (obstructive sleep apnea) Paroxysmal ventricular tachycardia Pure hypercholesterolemia Rheumatic aortic stenosis Rheumatic mitral insufficiency TIA (transient ischemic attack) (~11/19/15) Home Medications multivitamin with folic acid 1 tab PO DAILY 06/06/16 [History Last Taken 06/27/21] allopurinol 100 mg PO DINNER 08/29/17 [History Last Taken 06/27/21] calcitriol 0.25 mg PO DINNER 08/29/17 [History Last Taken 06/27/21] doxycycline hyclate 100 mg capsule 100 mg PO BID #180 cap 01/18/18 [Rx Last Taken 06/28/21] ferrous sulfate 325 mg (65 mg iron) tablet 65 mg PO DINNER tab 11/21/18 [History Last Taken 06/27/21] cyclobenzaprine 10 mg PO QHS 12/31/18 [History Last Taken 06/27/21] furosemide 20 mg tablet 20 mg PO DAILY #90 tab 01/27/21 [Rx Last Taken 06/28/21] sodium bicarbonate 650 mg tablet 650 mg PO BID tablet 03/01/21 [History Last Taken 06/28/21] levothyroxine 75 mcg tablet 75 mcg PO DAILY #90 tab 04/14/21 [Rx Last Taken 06/28/21] isosorbide mononitrate 30 mg tablet,extended release 24 hr 30 mg PO DAILY #90 tab 04/25/21 [Rx Last Taken 06/28/21] carvedilol 3.125 mg PO BID 05/19/21 [History Last Taken 06/28/21] tamsulosin 0.4 mg PO DINNER 05/19/21 [History Last Taken 06/27/21] warfarin 1 mg tablet 1 mg PO DINNER 05/30/21 [History Last Taken 06/28/21] warfarin 6 mg PO DINNER 06/28/21 [History Last Taken 06/28/21] Allergy/AdvReac Type Severity Reaction Status Date / Time No Known Allergies Allergy Verified 06/28/21 13:24 Family History Father CAD (coronary artery disease) CABG Brother CAD (coronary artery disease) CABG Mother Diabetes Sister Breast cancer Diabetes Sister Cancer breast Diabetes Surgical History dual chamber pacemaker implantation (~10/2010) History of aortic valve replacement (~08/2003) History of appendectomy History of atrioventricular chiquita ablation History of cholecystectomy History of evacuation of hematoma History of mechanical aortic valve replacement (~1986) History of mitral valve repair (~08/2003) Social History (Updated 06/28/21 @ 18:33 by Nalini Paz) household members: spouse housing: house Smoking Status: Never smoker alcohol intake: never substance use type: does not use caffeine: No what type of physical activity do you participate in: weight training and other details: Nustep frequency: 3-4 times per week duration: 45-60 minutes/day seatbelt use: always do you feel safe at home: Yes ROS Constitutional Constitutional: Reports as per HPI Eyes Eyes: Reports as per HPI ENT HEENT: Reports as per HPI Cardiovascular Cardiovascular: Reports nausea, syncope and vomiting Respiratory/Chest Respiratory/Chest: Reports as per HPI Gastrointestinal Gastrointestinal: Reports vomiting Musculoskeletal Musculoskeletal: Reports as per HPI Neurologic Neurologic: Reports as per HPI Physical Exam Const alert, oriented x3 and no apparent distress Orientation / Consciousness: awake HEENT normocephalic, head/scalp atraumatic and hearing grossly normal bilaterally Eyes PERRL, EOMs intact bilaterally and conjunctivae normal Neck full ROM, supple and no JVD Chest Chest: midline sternotomy incision Resp normal respiratory effort and clear to auscultation bilaterally Cardio regular rate and S1 normal heart sound Heart Sounds: murmur diastolic II/ left sternal border and systolic II/ holo apex and axilla and prosthetic sounds crisp prosthetic S2 GI normal to inspection, nondistended, normoactive bowel sounds Extremity no pedal edema Objective Data Vital Signs: Vital Signs Temp Pulse Resp BP Pulse Ox 97.8 F 73 17 150/57 H 98 06/28/21 18:13 06/28/21 18:41 06/28/21 18:13 06/28/21 18:41 06/28/21 18:13 Oxygen Delivery Method Room Air Weight: 186 lb 1.122 oz Body Mass Index (BMI) 29.1 Intake & Output: Intake and Output for Last 24 Hours 06/26/21 06/27/21 06/28/21 23:59 23:59 23:59 Intake Total 120 / 120 Balance 120 / 120 Lab / Micro Data Result Diagrams: 06/28/21 13:30 06/28/21 13:30 Labs: Laboratory Results - last 24 hr 06/28/21 13:30: WBC 7.0, RBC 3.68 L, Hgb 11.7 L, Hct 36.2 L, MCV 98.4 H, MCH 31.8, MCHC 32.3, RDW Std Deviation 56.4 H, RDW Coeff of Jennifer 15.7 H, Plt Count 99 L, MPV 10.7, Immature Gran % (Auto) 0.400, Neut % (Auto) 61.7, Lymph % (Auto) 22.7, Gaston % (Auto) 10.9 H, Eos % (Auto) 3.6, Baso % (Auto) 0.7, Absolute Neuts (auto) 4.3, Absolute Lymphs (auto) 1.59, Nucleated RBC % 0, Platelet Estimate ADEQUATE, Plt Morphology Comment CLUMPED 06/28/21 13:30: Sodium 140, Potassium 4.1, Chloride 106, Carbon Dioxide 24.0, Anion Gap 10, BUN 53 H, Creatinine 2.82 H, Estim Creat Clear Calc 22.14, Est GFR (MDRD) Af Amer 29 L, Est GFR (MDRD) Non-Af 24 L, BUN/Creatinine Ratio 18.8, Glucose 104, Calcium 9.8, Total Bilirubin 2.10 H, AST 52 H, ALT 37, Alkaline Phosphatase 241 H, Troponin I High Sens 48.8, Total Protein 8.3 H, Albumin 3.7, Globulin 4.6 H, Albumin/Globulin Ratio 0.8 L, Lipase 138 06/28/21 13:30: Phosphorus 3.9, Magnesium 2.1 06/28/21 14:35: Lactic Acid 1.2 06/28/21 15:18: PT 28.7 H, INR 2.8 06/28/21 16:28: COVID-19 ([place]) Positive 06/28/21 16:35: Procalcitonin 0.08 06/28/21 19:00: Troponin I High Sens 68.1 Cardiology Labs/Tests 06/28/21 13:30: WBC 7.0, RBC 3.68 L, Hgb 11.7 L, Hct 36.2 L, MCV 98.4 H, MCH 31.8, MCHC 32.3, Plt Count 99 L, MPV 10.7, Immature Gran % (Auto) 0.400, Neut % (Auto) 61.7, Lymph % (Auto) 22.7, Gaston % (Auto) 10.9 H, Eos % (Auto) 3.6, Baso % (Auto) 0.7, Absolute Neuts (auto) 4.3, Nucleated RBC % 0 06/28/21 13:30: Sodium 140, Potassium 4.1, Chloride 106, Carbon Dioxide 24.0, Anion Gap 10, BUN 53 H, Creatinine 2.82 H, Est GFR (MDRD) Af Amer 29 L, Est GFR (MDRD) Non-Af 24 L, BUN/Creatinine Ratio 18.8, Glucose 104, Calcium 9.8, Total Bilirubin 2.10 H 06/28/21 13:30: Phosphorus 3.9, Magnesium 2.1 06/28/21 14:35: Lactic Acid 1.2 06/28/21 15:18: PT 28.7 H, INR 2.8 Rhythm: Electronic ventricular paced rhythm EKG: Electronic ventricular paced rhythm ECHO: 04/15/2020 Interpretation Summary The study was technically difficult. Contrast injection was performed. Moderately dilated left ventricle. Segmental dysfunction with preserved ejection fraction (see wall motion). The estimated ejection fraction is 55 %. D shaped septum in systole and diastole. Mild concentric left ventricular hypertrophy. The left atrium is moderately enlarged. An annuloplasty ring is noted in the mitral position. Mild focal mitral valve calcification of the anterior leaflet. Mild mitral valve stenosis. Mild to moderate (1-2) transvalvular insufficiency of the mitral valve. Mild to moderate (1-2+) tricuspid valve insufficiency. Stable appearing mechanical aortic valve apparatus. Mild aortic stenosis. Mild to Moderate transvalvular insufficiency of the aortic valve. Mild (1+) pulmonic valve insufficiency. Right ventricular systolic pressure estimated to be 60 mmHg. Unable to assess diastolic dysfunction. ICD or pacer leads identified within the right atrium ICD or pacer leads identified within the right ventricle. Stress Test Report Date: 04-05-2021 Procedure: Pharmacologic stress nuclear imaging study Indications: Shortness of breath/dyspnea; syncope; cardiac dysrhythmia; status post permanent pacemaker; status post aortic valve replacement; status post mitral valve repair Consent: Per the patient Procedure: The patient underwent pharmacologic (Regadenoson 0.4mg ) evaluation with a peak heart rate of 81 beats per minute (54%predicted maximal heart rate) and a peak blood pressure of 142/64 mmHg. The baseline ECG demonstrated electronic ventricular paced rhythm. The peak pharmacologic ECG demonstrated an electronic ventricular paced rhythm. There were no cardiac dysrhythmias pretest, during pharmacologic infusion, or recovery. There was no complaint of chest discomfort during pharmacologic infusion or recovery. The examination was discontinued secondary to completion of protocol. Impression: 1. Pharmacologic (Regadenoson) evaluation 2. Peak pharmacologic ECG with an electronic ventricular paced rhythm. 3. There were no cardiac dysrhythmias pretest, during pharmacologic infusion, or recovery. 4. Nuclear images pending Myocardial perfusion imaging study: Technique: The patient was injected with 11.8 millicuries of technetium 99m Cardiolite and subsequently rest SPECT Cardiolite nuclear imaging was obtained in the horizontal long, vertical long, and short axis views. The patient underwent pharmacologic (Regadenoson) evaluation with a peak heart rate of 81 beats per minute (54% percent predicted maximal heart rate) and a peak blood pressure of 142/64 mmHg. The patient was injected with 35.0 millicuries of technetium 99m Cardiolite and subsequently stress SPECT Cardiolite nuclear imaging was obtained in the horizontal long, vertical long, and short axis views. A gated Cardiolite study at peak stress was obtained. Interpretation: Rest and stress SPECT Cardiolite nuclear imaging status post realignment, normalization, and attenuation correction demonstrate the appearance of diminished myocardial perfusion/tracer uptake in portions of the distal inferior segments without significant change between rest and stress. There is diminished end systolic thickening and brightening. The gated Cardiolite study demonstrates diminished myocardial thickening and inward wall motion. The reported LVEF is 45%. Impression: 1. Rest and stress SPECT her nuclear imaging demonstrate myocardial perfusion changes potentially compatible with an area of previous myocardial injury/infarction involving portions of the distal inferior segments although soft tissue attenuation/artifact cannot necessarily be excluded with no myocardial perfusion changes considered diagnostic for associated stress-induced myocardial ischemia. 2. The gated Cardiolite study reports an LVEF of 45%. Radiography Diagnostic Testing: Radiology Impression Brain CT 06/28/21 14:00 IMPRESSION: Normal unenhanced CT scan of the brain. Electronically Signed: Soto Barber MD at 15:53 EDT Tel , Service support , Chest X-Ray 06/28/21 15:00 IMPRESSION: 1. No acute findings in the chest. 2. Possible mild chronic interstitial lung disease without significant change. HRCT chest will help clarify. Electronically Signed: Claudio Gold MD at 15:27 EDT , Service support ,
[2021-06-28] MEDS: Tamsulosin HCl 0.4 MG Capsule PO (20:22)
[2021-06-28] MEDS: Ferrous Sulfate 325 MG Tablet PO (20:22)
[2021-06-28] MEDS: Calcitriol 0.25 MCG Capsule PO (20:23)
[2021-06-28] MEDS: Allopurinol 100 MG Tablet PO (20:23)
[2021-06-28] MEDS: Doxycycline 100 MG CAPSULE PO (20:29)
[2021-06-28 20:37] LABS: Troponin-I HS 66.5 pg/mL (3.0-78.5)
[2021-06-28 21:50] LABS: Bacteria 0 SEEN /hpf (None Seen); Mucous, Urine 0 SEEN /hpf (<or=2+); Red Blood Cells-Urine 0 SEEN /hpf (0-5)
[2021-06-28 22:02] LABS: Color, Urine Yellow (Yellow); Glucose, Dipstick Normal (Normal); Ketone-Dipstick Negative (Negative); Leukocyte Esterase-Dipstick Negative /ul (Negative); Nitrite-Dipstick Negative (Negative); Occult Blood-Urine Negative /ul (Negative); Protein-Dipstick 15 mg/dl (Negative); Specific Gravity, Urine 1.015 (1.002-1.030); Urine Bilirubin Dipstick Negative (Negative); Urine Clarity Clear (Clear); Urine Urobilinogen Normal (Normal)
[2021-06-28] MEDS: 0.9% Normal Saline 1,000 ML 100 ML IV (22:12)
[2021-06-28] MEDS: Carvedilol 3.125 MG TABLET PO (22:15)
[2021-06-28] MEDS: Sodium Bicarbonate 650 MG Tablet PO (22:16)
[2021-06-28] MEDS: cycloBENZAPRine HCl 10 MG Tablet PO (22:16)
[2021-06-28 22:22] LABS: Squamous Epithelial Cells - UA 0-5 SEEN /hpf (0-5); White Blood Cells 0-5 SEEN /hpf (0-5)
[2021-06-29] VITALS (13 sets, daily range): BP systolic 119–147; BP diastolic 51–78; PULSE 70–77; RESP 16–20; TEMP 35.8–36.8; O2SAT 93–100
[2021-06-29] MEDS: Levothyroxine 75 MCG Tablet PO (06:22)
[2021-06-29] MEDS: 0.9% Normal Saline 1,000 ML 100 ML IV ×2 (06:22→14:34)
[2021-06-29 07:16] LABS: Absolute Lymphocyte Count 1.26 X10^3/uL (0.83-4.51); Absolute Neutrophil Count 5.9 X10^3/uL (2.0-7.7); Basophil# 0.04 X10^3/uL; Basophil% 0.5 % (0-1); Eosinophil# 0.16 X10^3/uL; Hematocrit 33.6 % (40-54); Hemoglobin 10.7 g/dL (13.0-16.5); Lymphocyte # 1.26 X10^3/ul (0.83-4.51); Lymphocyte % 15.5 % (19-41); Mean Corp Hgb Conc 31.8 g/dL (32-36); Mean Corpuscular Hgb 31.9 pg (27.0-32.0); Mean Corpuscular Volume 100.3 fL (80-94); Mean Platelet Vol. 11.9 fl (6.2-12.0); Monocyte# 0.76 X10^3/uL; Monocyte% 9.3 % (0-10); NRBC Flagged by Analyzer 0 % (0-5); Neutrophil # 5.89 X10^3/uL (2.7-7.7); Neutrophil % 72.2 % (47-70); POSITIVE COUNT YES; Platelet Count 89 K/mm3 (150-450); RBC Distribution Width CV 15.7 % (11.6-14.6); RBC Distribution Width SD 57.3 fl (35.1-43.9); Red Blood Count 3.35 M/mm3 (4.6-6.2); White Blood Count 8.2 K/mm3 (4.4-11.0)
[2021-06-29 07:54] LABS: ALB/GLOB Ratio 0.9 RATIO (0.9-2.4); AST(SGOT) 47 U/L (15-37); Alanine Aminotransfer ALT/SGPT 32 U/L (16-61); Albumin, Serum 3.3 g/dL (3.2-5.0); Alkaline Phosphatase 210 U/L (45-117); Anion Gap 8 (5-15); BUN 47 mg/dL (7-18); BUN/Creat Ratio 18.9 RATIO (10-20); Calcium,Total 8.7 mg/dL (8.5-10.1); Chloride 109 mmol/L (98-107); Creatinine, Serum 2.49 mg/dL (0.70-1.30); EST Glomerular Filtration Rate 27 mL/min (>60); Est Glom Filt Rate - Afr Amer 33 mL/min (>60); Estimated Creatinine Clearance 25.07 ml/min; Globulin 3.6 g/dL (2.2-4.2); Glucose 93 mg/dL (74-106); Potassium 4.2 mmol/L (3.5-5.1); Protein, Total 6.9 g/dL (6.4-8.2); Sodium Level 140 mmol/L (136-145); T4 Free Direct 1.42 ng/dL (0.76-1.46); Thyroid Stim Hormone (TSH) 2.72 uIU/mL (0.358-3.74)
[2021-06-29 08:17] LABS: International Normalized Ratio 3.2; Prothrombin Time (Protime)PT. 31.6 SECONDS (11.7-14.9)
[2021-06-29] MEDS: Multivitamins,Therapeutic Tablet 1 TABLET PO (10:33)
[2021-06-29] MEDS: Isosorbide Mononitrate 30 MG Tablet PO (10:33)
[2021-06-29] MEDS: Furosemide 20 MG Tablet PO (10:33)
[2021-06-29] MEDS: Carvedilol 3.125 MG TABLET PO ×2 (10:33→20:24)
[2021-06-29] MEDS: Sodium Bicarbonate 650 MG Tablet PO ×2 (10:33→20:24)
[2021-06-29] MEDS: Doxycycline 100 MG CAPSULE PO ×2 (10:33→20:24)
--- NOTE | 2021-06-29 10:37 | NURSING ---
Yvonne charge master specialist nurse assisting in providing care to pt/tele monitoring.
--- NOTE | 2021-06-29 12:00 | CASEMGMT ---
RN CM [employer] CM to room to meet with patient for initial transition planning/care coordination assessment. GIO HEARN introduced self and role at [facility]. Pt voices understanding and consents to assessment at this time. Pt sitting up in chair in room in no distress at this time. Pt is A/O at this time and answers all questions appropriately. Care providers, pharmacy, and demographics verified/updated at this time. PCP: Dr Vinny Atkinson Specialists:Dr Grullon--cardiology, Dr Calderon-nephrology, Dr Turner-oncology, Dr Melton-endocrinology, Dr Min- pulmonology, Dr Marciano Puri--hepatology in [place] (has initial appt Jul 21), Sees a neurologist @ [facility]--does not remember name of doctor. [facility] Prescription Benefit: Yes Living Will/HPOA: Has a LW and Healthcare POA, who is his , Bre [place]: , Bre. Dtr, Alina. Son, Clifton Living Arrangements: Lives w/his in one-story home w/basement. 2 steps w/bilat handrails to enter home. Pt states does okay with the stairs. Independent w/ADL's. does most home mgmt tasks. Transportation: Pt does not drive d/t syncopal episodes. provides transportation and he denies transportation concerns. DME: States has the following DME: CPAP, Scooter for long distances. Otherwise, does not use DME to ambulate. Pt states no need for further DME at this time. HHC/SNF: Hx of going to [facility] and has had HHC, but does not remember name of agency. Denies need for HHC or OP therapy. Pt made aware, once he returns home if he would be interested in HHC, to discuss this w/his PCP. Pt voices understanding. Pt wishes to return home and states has no concerns with going home at time of discharge. CM to follow for home oxygen needs and any further discharge planning/needs. Pt voices no further concerns/needs at this time. Advised pt to ask for CM if any further questions/concerns/needs arise. Voices understanding. PLAN: Home w/spousal support and discharge plans in place. Ricky MARIE RN, CM
--- NOTE | 2021-06-29 13:35 | PCM.PN.HOSP ---
Documented by User: Esa KEMP 06/29/21 13:55 Subjective Subjective Patient is a 71-year-old male comfortably resting in bed, alert and orient x3. Patient reports no change or progression of symptoms from admission. Denies chest pain, shortness of breath, palpitations, hemoptysis, sputum production, fever, chills, N/V/D. Objective Data Objective Data Vital Signs: Vital Signs Temp Pulse Resp BP Pulse Ox 97.9 F 72 20 H 123/78 H 99 06/29/21 10:29 06/29/21 10:29 06/29/21 10:29 06/29/21 10:29 06/29/21 10:29 Oxygen Delivery Method Room Air Weight: 186 lb 4.65 oz Body Mass Index (BMI) 29.1 Intake & Output: Intake and Output for Last 24 Hours 06/27/21 06/28/21 06/29/21 23:59 23:59 23:59 Intake Total 1365 / 1865 1816.67 / 1816.67 Output Total 400 / 400 Balance 1365 / 1465 1416.67 / 1416.67 Lab / Micro Data Result Diagrams: 06/29/21 06:20 06/29/21 06:20 Labs: Laboratory Results - last 24 hr 06/28/21 13:30: WBC 7.0, RBC 3.68 L, Hgb 11.7 L, Hct 36.2 L, MCV 98.4 H, MCH 31.8, MCHC 32.3, RDW Std Deviation 56.4 H, RDW Coeff of Jennifer 15.7 H, Plt Count 99 L, MPV 10.7, Immature Gran % (Auto) 0.400, Neut % (Auto) 61.7, Lymph % (Auto) 22.7, Giles % (Auto) 10.9 H, Eos % (Auto) 3.6, Baso % (Auto) 0.7, Absolute Neuts (auto) 4.3, Absolute Lymphs (auto) 1.59, Nucleated RBC % 0, Platelet Estimate ADEQUATE, Plt Morphology Comment CLUMPED 06/28/21 13:30: Sodium 140, Potassium 4.1, Chloride 106, Carbon Dioxide 24.0, Anion Gap 10, BUN 53 H, Creatinine 2.82 H, Estim Creat Clear Calc 22.14, Est GFR (MDRD) Af Amer 29 L, Est GFR (MDRD) Non-Af 24 L, BUN/Creatinine Ratio 18.8, Glucose 104, Calcium 9.8, Total Bilirubin 2.10 H, AST 52 H, ALT 37, Alkaline Phosphatase 241 H, Troponin I High Sens 48.8, Total Protein 8.3 H, Albumin 3.7, Globulin 4.6 H, Albumin/Globulin Ratio 0.8 L, Lipase 138 06/28/21 13:30: Phosphorus 3.9, Magnesium 2.1 06/28/21 14:35: Lactic Acid 1.2 06/28/21 15:18: PT 28.7 H, INR 2.8 06/28/21 16:28: COVID-19 ([facility]) Positive 06/28/21 16:35: Procalcitonin 0.08 06/28/21 19:00: Troponin I High Sens 68.1 06/28/21 19:50: Troponin I High Sens 66.5 06/28/21 21:20: Urine Color Yellow, Urine Clarity Clear, Urine pH 6.0, Ur Specific Yulan 1.015, Urine Protein 15 H, Urine Glucose (UA) Normal, Urine Ketones Negative, Urine Occult Blood Negative, Urine Nitrite Negative, Urine Bilirubin Negative, Urine Urobilinogen Normal, Ur Leukocyte Esterase Negative, Urine RBC 0 SEEN, Urine WBC 0-5 SEEN, Ur Squamous Epith Cells 0-5 SEEN, Urine Bacteria 0 SEEN, Urine Mucus 0 SEEN 06/29/21 06:20: WBC 8.2, RBC 3.35 L, Hgb 10.7 L, Hct 33.6 L, MCV 100.3 H, MCH 31.9, MCHC 31.8 L, RDW Std Deviation 57.3 H, RDW Coeff of Jennifer 15.7 H, Plt Count 89 L, MPV 11.9, Immature Gran % (Auto) 0.500, Neut % (Auto) 72.2 H, Lymph % (Auto) 15.5 L, Giles % (Auto) 9.3, Eos % (Auto) 2.0, Baso % (Auto) 0.5, Absolute Neuts (auto) 5.9, Absolute Lymphs (auto) 1.26, Nucleated RBC % 0 06/29/21 06:20: PT 31.6 H, INR 3.2 06/29/21 06:20: Sodium 140, Potassium 4.2, Chloride 109 H, Carbon Dioxide 23.0, Anion Gap 8, BUN 47 H, Creatinine 2.49 H, Estim Creat Clear Calc 25.07, Est GFR (MDRD) Af Amer 33 L, Est GFR (MDRD) Non-Af 27 L, BUN/Creatinine Ratio 18.9, Glucose 93, Calcium 8.7, Total Bilirubin 2.50 H, AST 47 H, ALT 32, Alkaline Phosphatase 210 H, Total Protein 6.9, Albumin 3.3, Globulin 3.6, Albumin/Globulin Ratio 0.9, TSH 2.72, Free T4 1.42 Micro: Microbiology 06/28/21 16:28 Mucosa - Nasopharyngeal Respiratory Panel (PCR) - Final Radiography Diagnostic Testing: Radiology Impression Brain CT 06/28/21 14:00 IMPRESSION: Normal unenhanced CT scan of the brain. Electronically Signed: Soto Barber MD at 15:53 EDT Tel , Service support , Chest X-Ray 06/28/21 15:00 IMPRESSION: 1. No acute findings in the chest. 2. Possible mild chronic interstitial lung disease without significant change. HRCT chest will help clarify. Electronically Signed: Claudio Gold MD at 15:27 EDT , Service support , Physical Exam Const alert, oriented x3 and no apparent distress HEENT head/scalp atraumatic and moist oral mucous membranes Head and Scalp: normocephalic Eyes EOMs intact bilaterally and conjunctivae normal Neck no lymphadenopathy, supple and no JVD Resp normal respiratory effort, no retractions, no use of accessory muscles and clear to auscultation bilaterally Cardio regular rate, regular rhythm, no murmurs and no JVD GI normal to inspection, nondistended, normoactive bowel sounds, soft to palpation and non-tender Extremity normal to inspection, full ROM and no clubbing, cyanosis or edema Skin no rashes or lesions noted, no wounds, skin turgor normal and no jaundice Neuro CN's II-XII intact bilaterally Psych affect normal Assessment & Plan Assessment/Plan (1) Syncope: QUALIFIERS: Syncope type: unspecified Qualified Code(s): R55 - Syncope and collapse (2) COVID-19: PLAN: Day 2: See subjective. Discharge planning: Patient to be discharged home, no home health care needs or additional therapies identified. 1) syncopal event of unclear etiology Likely vasovagal or orthostatic given absence of evidence otherwise. Patient has had a total of 4 syncopal events in the past 2 years, for which he has had extensive work-up at this hospital as well as down at [facility]. Patient follows with Dr. Grullon, who has not identified any clear etiology of patients syncopal events. Patient's pacemaker has been interrogated and appears to be functioning appropriately. Cardiology is following for current admission and recommends ongoing monitoring. 2) COVID-19 infection Patients COVID-19 PCR returned back positive. Patient is currently asymptomatic for any respiratory or viral symptoms. Denies chest pain, shortness of breath, palpitations, hemoptysis, sputum production, fever, chills, N/V/D. Patient's vital signs are stable, patient is afebrile and currently satting 99% on room air. There is no leukocytosis on CBC. Chest x-ray demonstrates no acute findings, only stable chronic interstitial lung disease. Plan; COVID-[address], continue to monitor CBC and BMP. 3) valvular heart disease History of infectious endocarditis. S/p aortic valve replacement. Echocardiogram completed in May at [facility] demonstrated normal LV systolic function, an estimated EF of 54%, and RVSP of 47 mmHg and an overall stabe echo from prior study. plan; 4) cardiomyopathy Status post ICD and pacer, interrogation as above. 5) paroxysmal atrial fibrillation Status post ablation as well as pacer/ICD, on Coumadin for anticoagulation and Coreg. Continue home regimen. 6) HTN Continue Coreg, isosorbide, Lasix and as needed hydralazine. 7) hyperlipidemia Not on statin regimen at home. 8) chronic iron deficiency anemia Hemoglobin currently 10.7, stable. Continue iron supplementation and trend CBC. 9) hypothyroidism TSH and T4 within normal meds. Continue Synthroid. 10) BPH Continue Flomax DVT prophylaxis -continue Coumadin Patient seen by Esa Conway PA-C, under the supervision of Dr. Peralta. Documented by User: Dr. Adriel Peralta MD 06/29/21 14:02 Objective Data Lab / Micro Data Result Diagrams: 06/29/21 06:20 06/29/21 06:20 Assessment & Plan Addt'l Comments This patient was seen in conjunction with Esa Conway PA-C. I have independently interviewed and examined the patient and reviewed pertinent historical, laboratory, and other data. Please refer to Esa Conway PA-C's note for details of this patient's presentation, findings, and recommendations. I have reviewed Esa Conway PA-C's note and concur with documented findings. In brief, patient is a 72-year-old male admitted with a syncopal episode. SARS-CoV-2 assay obtained as part of his evaluation came back positive Physical Examination: GENERAL: cooperative HEENT: Atraumatic; EYES; Anicteric, Normal Conjunctiva NECK; supple, normal thyroid, RESPIRATORY: Diminished to auscultation CARDIOVASCULAR: Regular S1 S2, GI: soft, normoactive bowel sounds, : No Renal angle tenderness; EXTREMITIES: No edema, no clubbing, MUSCULOSKELETAL: no muscle waisting NEURO: Awake; no lateralizing signs. SKIN: No Rash PSYCH; Flat affect Assessment: 1. Syncopal episode 2. SARS-CoV-2 infection 3. Hypothyroidism 4. Essential hypertension 5. Dyslipidemia 6. Paroxysmal atrial fibrillation status post ablation 7. Aortic valve replacement with a mechanical valve the mitral valve repair as a result of infective endocarditis 8. History of non-Hodgkin's lymphoma currently in remission 9. Anemia of chronic disorder 10. Obstructive sleep apnea 11. History of DVT 12. BPH 13. DVT prophylaxis Recommendations: 1. I have discussed the results of my overview and impressions with the patient 2. Options for management were reviewed Charges/Coding Visit Charges Inpatient E&M: 75350 Subs Hosp L3
[2021-06-29] MEDS: Calcitriol 0.25 MCG Capsule PO (17:18)
[2021-06-29] MEDS: Tamsulosin HCl 0.4 MG Capsule PO (17:18)
[2021-06-29] MEDS: Ferrous Sulfate 325 MG Tablet PO (17:18)
[2021-06-29] MEDS: Allopurinol 100 MG Tablet PO (17:18)
[2021-06-29] MEDS: cycloBENZAPRine HCl 10 MG Tablet PO (20:24)
[2021-06-30] MEDS: 0.9% Normal Saline 1,000 ML 100 ML IV (00:06)
[2021-06-30 02:21] VITALS: PULSE 70
[2021-06-30 04:47] VITALS: BP 108/45; PULSE 70; RESP 18; TEMP 36.8; O2SAT 95
[2021-06-30] MEDS: Levothyroxine 75 MCG Tablet PO (04:50)
[2021-06-30 07:21] LABS: Absolute Lymphocyte Count 1.23 X10^3/uL (0.83-4.51); Absolute Neutrophil Count 4.8 X10^3/uL (2.0-7.7); Basophil# 0.03 X10^3/uL; Basophil% 0.4 % (0-1); Eosinophil# 0.31 X10^3/uL; Eosinophils% 4.4 % (0-5); Hematocrit 33.4 % (40-54); Hemoglobin 10.4 g/dL (13.0-16.5); Lymphocyte # 1.23 X10^3/ul (0.83-4.51); Lymphocyte % 17.3 % (19-41); Mean Corp Hgb Conc 31.1 g/dL (32-36); Mean Corpuscular Hgb 31.8 pg (27.0-32.0); Mean Corpuscular Volume 102.1 fL (80-94); Mean Platelet Vol. 12.8 fl (6.2-12.0); Monocyte% 9.8 % (0-10); NRBC Flagged by Analyzer 0 % (0-5); Neutrophil # 4.82 X10^3/uL (2.7-7.7); Neutrophil % 67.8 % (47-70); Platelet Count 100 K/mm3 (150-450); RBC Distribution Width CV 15.9 % (11.6-14.6); RBC Distribution Width SD 59.1 fl (35.1-43.9); Red Blood Count 3.27 M/mm3 (4.6-6.2); White Blood Count 7.1 K/mm3 (4.4-11.0)
[2021-06-30 07:30] VITALS: PULSE 70
[2021-06-30 07:49] LABS: Anion Gap 9 (5-15); BUN 52 mg/dL (7-18); BUN/Creat Ratio 20.7 RATIO (10-20); Calcium,Total 8.8 mg/dL (8.5-10.1); Chloride 107 mmol/L (98-107); Creatinine, Serum 2.51 mg/dL (0.70-1.30); EST Glomerular Filtration Rate 27 mL/min (>60); Est Glom Filt Rate - Afr Amer 33 mL/min (>60); Estimated Creatinine Clearance 24.87 ml/min; Glucose 103 mg/dL (74-106); Potassium 4.1 mmol/L (3.5-5.1); Sodium Level 139 mmol/L (136-145)
--- NOTE | 2021-06-30 07:49 | DS.PCM_ITS ---
Providers Date of Admission: 06/29/21 Primary Care Physician: Dr. Vinny Atkinson MD Consultations 06/28/21 17:46 Consult: Cardiology Routine Consulting Provider: Jeff Grullon Reason for Consult: Recurrent syncope EMERGENT Consult: No MD Notified: Yes Date Notified: 06/28/21 Time Notified: 17:19 Method of Notification: Text Reason For Visit: SYNCOPE N/V Diagnosis Discharge Diagnosis (1) Syncope: Status: Acute Code(s): R55 - Syncope and collapse Qualifiers: Syncope type: unspecified Qualified Code(s): R55 - Syncope and collapse (2) COVID-19: Status: Acute Code(s): U07.1 - COVID-19 Medications at Discharge Home Medications multivitamin with folic acid 1 tab PO DAILY 06/06/16 allopurinol 100 mg PO DINNER 08/29/17 calcitriol 0.25 mg PO DINNER 08/29/17 doxycycline hyclate 100 mg capsule 100 mg PO BID #180 cap 01/18/18 ferrous sulfate 325 mg (65 mg iron) tablet 65 mg PO DINNER tab 11/21/18 cyclobenzaprine 10 mg PO QHS 12/31/18 furosemide 20 mg tablet 20 mg PO DAILY #90 tab 01/27/21 sodium bicarbonate 650 mg tablet 650 mg PO BID tablet 03/01/21 levothyroxine 75 mcg tablet 75 mcg PO DAILY #90 tab 04/14/21 isosorbide mononitrate 30 mg tablet,extended release 24 hr 30 mg PO DAILY #90 tab 04/25/21 carvedilol 3.125 mg PO BID 05/19/21 tamsulosin 0.4 mg PO DINNER 05/19/21 warfarin 1 mg tablet 1 mg PO DINNER 05/30/21 warfarin 6 mg PO DINNER 06/28/21 Weight / BMI Weight Weight: 89 kg Body Mass Index (BMI) 29.1 ABG / Lab / Microbiology Data Result Diagrams: 06/30/21 06:30 06/30/21 06:30 Laboratory: Laboratory Results - last 24 hr 06/29/21 06:20: PT 31.6 H, INR 3.2 06/29/21 06:20: Sodium 140, Potassium 4.2, Chloride 109 H, Carbon Dioxide 23.0, Anion Gap 8, BUN 47 H, Creatinine 2.49 H, Estim Creat Clear Calc 25.07, Est GFR (MDRD) Af Amer 33 L, Est GFR (MDRD) Non-Af 27 L, BUN/Creatinine Ratio 18.9, Glucose 93, Calcium 8.7, Total Bilirubin 2.50 H, AST 47 H, ALT 32, Alkaline Phosphatase 210 H, Total Protein 6.9, Albumin 3.3, Globulin 3.6, Albumin/Globulin Ratio 0.9, TSH 2.72, Free T4 1.42 06/30/21 06:30: WBC 7.1, RBC 3.27 L, Hgb 10.4 L, Hct 33.4 L, MCV 102.1 H, MCH 31.8, MCHC 31.1 L, RDW Std Deviation 59.1 H, RDW Coeff of Jennifer 15.9 H, Plt Count 100 L, MPV 12.8 H, Immature Gran % (Auto) 0.300, Neut % (Auto) 67.8, Lymph % (Auto) 17.3 L, [place] % (Auto) 9.8, Eos % (Auto) 4.4, Baso % (Auto) 0.4, Absolute Neuts (auto) 4.8, Absolute Lymphs (auto) 1.23, Nucleated RBC % 0 Microbiology: Microbiology 06/28/21 16:28 Mucosa - Nasopharyngeal Respiratory Panel (PCR) - Final Meaningful Use Info Meaningful Use Diagnoses (Choose all that apply): None applicable Discharge Plan Admission Admit Date/Time: 06/29/21 10:16 Primary Reason for Your Visit: Syncopal episode Attending Provider: Adriel Peralta Primary Care Provider: Vinny Atkinson Consulting Providers: Jeff Grullon Instructions Additional Instructions / Restrictions: Patient Problems: Altered Health Status related to Hospitalization Patient Goals: *Optimal Level of Health *Keep Appointments *Medication Compliance *Remain Safe Discharge Orders/Prescriptions Prescriptions: Continued doxycycline hyclate 100 MG capsule 100 mg PO BID Qty: 180 RF: 3 ferrous sulfate 325 mg (65 mg iron) tablet 65 mg PO DINNER RF: 0 multivitamin with folic acid 1 TABLET tablet 1 tab PO DAILY RF: 0 allopurinol 100 MG tablet 100 mg PO DINNER RF: 0 calcitriol 0.25 MCG capsule 0.25 mg PO DINNER RF: 0 cyclobenzaprine 10 MG tablet 10 mg PO QHS RF: 0 carvedilol 3.125 mg tablet 3.125 mg PO BID RF: 0 tamsulosin 0.4 mg capsule 0.4 mg PO DINNER RF: 0 warfarin 6 mg tablet 6 mg PO DINNER RF: 0 furosemide 20 mg tablet 20 mg PO DAILY Qty: 90 RF: 3 sodium bicarbonate 650 mg tablet 650 mg PO BID RF: 0 levothyroxine 75 mcg tablet 75 mcg PO DAILY Qty: 90 RF: 3 isosorbide mononitrate 30 mg tablet extended release 24 hr 30 mg PO DAILY Qty: 90 RF: 3 warfarin 1 mg tablet 1 mg PO DINNER RF: 0 Referrals / Follow Up: Vinny Atkinson MD [Primary Care Provider] - 07/05/21 10:50 am Jane Torres PA [PHYSICIAN F[employer]INE OPERATOR] - 08/02/21 10:30 am Disposition Disposition (needs filled in before D/C Order can be placed): Home, Self Care Charges/Coding Visit Charges Inpatient E&M: 70285 Disch Hosp
--- NOTE | 2021-06-30 10:59 | PCM.DC.SUM ---
Providers Date of Admission: 06/29/21 Primary Care Physician: Dr. Vinny Atkinson MD Consultations 06/28/21 17:46 Consult: Cardiology Routine Consulting Provider: Jeff Grullon Reason for Consult: Recurrent syncope EMERGENT Consult: No MD Notified: Yes Date Notified: 06/28/21 Time Notified: 17:19 Method of Notification: Text Reason For Visit: SYNCOPE N/V Diagnosis Discharge Diagnosis (1) Syncope: Status: Acute Code(s): R55 - Syncope and collapse Qualifiers: Syncope type: unspecified Qualified Code(s): R55 - Syncope and collapse (2) COVID-19: Status: Acute Code(s): U07.1 - COVID-19 Medications at Discharge Home Medications multivitamin with folic acid 1 tab PO DAILY 06/06/16 allopurinol 100 mg PO DINNER 08/29/17 calcitriol 0.25 mg PO DINNER 08/29/17 doxycycline hyclate 100 mg capsule 100 mg PO BID #180 cap 01/18/18 ferrous sulfate 325 mg (65 mg iron) tablet 65 mg PO DINNER tab 11/21/18 cyclobenzaprine 10 mg PO QHS 12/31/18 furosemide 20 mg tablet 20 mg PO DAILY #90 tab 01/27/21 sodium bicarbonate 650 mg tablet 650 mg PO BID tablet 03/01/21 levothyroxine 75 mcg tablet 75 mcg PO DAILY #90 tab 04/14/21 isosorbide mononitrate 30 mg tablet,extended release 24 hr 30 mg PO DAILY #90 tab 04/25/21 carvedilol 3.125 mg PO BID 05/19/21 tamsulosin 0.4 mg PO DINNER 05/19/21 warfarin 1 mg tablet 1 mg PO DINNER 05/30/21 warfarin 6 mg PO DINNER 06/28/21 Hospital Course Summary of Care Provided Minutes Spent on Discharge: 35 Hospital Course: In brief, patient is a 72-year-old male admitted with a syncopal episode. SARS-CoV-2 assay obtained as part of his evaluation came back positive Assessment: 1. Syncopal episode -Of undetermined etiology. Patient has apparently had 4 previous syncopal episode for which she has undergone extensive work-up. Patient was seen in consultation by Dr. Grullon his notes and recommendations reviewed 2. SARS-CoV-2 infection -Patient remained asymptomatic. Patient is a vaccinated patient. He was instructed to current time for 7 additional days following his discharge 3. Hypothyroidism - Patient is on levothyroxine home dose continued 4. Hypertension - Blood pressure controlled, home medications continued with dose adjustment as needed 5. Dyslipidemia -Patient is on statin therapy, continued at home dose 6. Paroxysmal atrial fibrillation ?Status post ablation 7. Aortic valve replacement with a mechanical valve the mitral valve repair -as a result of infective endocarditis 8. History of non-Hodgkin's lymphoma -currently in remission 9. Anemia of chronic disorder 10. Obstructive sleep apnea 11. History of DVT 12. BPH 13. DVT prophylaxis Physical Exam Narrative GENERAL: cooperative HEENT: Atraumatic; EYES; Anicteric, Normal Conjunctiva NECK; supple, normal thyroid, RESPIRATORY: Diminished to auscultation CARDIOVASCULAR: Regular S1 S2, GI: soft, normoactive bowel sounds, : No Renal angle tenderness; EXTREMITIES: No edema, no clubbing, MUSCULOSKELETAL: no muscle waisting NEURO: Awake; no lateralizing signs. SKIN: No Rash PSYCH; Flat affect Weight / BMI Weight Weight: 89 kg Body Mass Index (BMI) 29.1 ABG / Lab / Microbiology Data Result Diagrams: 06/30/21 06:30 06/30/21 06:30 Laboratory: Laboratory Results - last 24 hr 06/30/21 06:30: WBC 7.1, RBC 3.27 L, Hgb 10.4 L, Hct 33.4 L, MCV 102.1 H, MCH 31.8, MCHC 31.1 L, RDW Std Deviation 59.1 H, RDW Coeff of Jennifer 15.9 H, Plt Count 100 L, MPV 12.8 H, Immature Gran % (Auto) 0.300, Neut % (Auto) 67.8, Lymph % (Auto) 17.3 L, [place] % (Auto) 9.8, Eos % (Auto) 4.4, Baso % (Auto) 0.4, Absolute Neuts (auto) 4.8, Absolute Lymphs (auto) 1.23, Nucleated RBC % 0 06/30/21 06:30: Sodium 139, Potassium 4.1, Chloride 107, Carbon Dioxide 23.0, Anion Gap 9, BUN 52 H, Creatinine 2.51 H, Estim Creat Clear Calc 24.87, Est GFR (MDRD) Af Amer 33 L, Est GFR (MDRD) Non-Af 27 L, BUN/Creatinine Ratio 20.7 H, Glucose 103, Calcium 8.8 Microbiology: Microbiology 06/28/21 16:28 Mucosa - Nasopharyngeal Respiratory Panel (PCR) - Final D/C Instructions Discharge Diet: No restrictions Discharge Activity: Return to Normal Activity Call your doctor if you observe: Fever of 101 or Higher, Shortness of breath, Fainting spells and Chest pain Additional Instructions: Patient to current time for 7 additional days Meaningful Use Info Meaningful Use Diagnoses (Choose all that apply): None applicable Discharge Plan Admission Admit Date/Time: 06/29/21 10:16 Primary Reason for Your Visit: Syncopal episode Attending Provider: Adriel Peralta Primary Care Provider: Vinny Atkinson Consulting Providers: Jeff Grullon Discharge Orders/Prescriptions Prescriptions: Continued doxycycline hyclate 100 MG capsule 100 mg PO BID Qty: 180 RF: 3 ferrous sulfate 325 mg (65 mg iron) tablet 65 mg PO DINNER RF: 0 multivitamin with folic acid 1 TABLET tablet 1 tab PO DAILY RF: 0 allopurinol 100 MG tablet 100 mg PO DINNER RF: 0 calcitriol 0.25 MCG capsule 0.25 mg PO DINNER RF: 0 cyclobenzaprine 10 MG tablet 10 mg PO QHS RF: 0 carvedilol 3.125 mg tablet 3.125 mg PO BID RF: 0 tamsulosin 0.4 mg capsule 0.4 mg PO DINNER RF: 0 warfarin 6 mg tablet 6 mg PO DINNER RF: 0 furosemide 20 mg tablet 20 mg PO DAILY Qty: 90 RF: 3 sodium bicarbonate 650 mg tablet 650 mg PO BID RF: 0 levothyroxine 75 mcg tablet 75 mcg PO DAILY Qty: 90 RF: 3 isosorbide mononitrate 30 mg tablet extended release 24 hr 30 mg PO DAILY Qty: 90 RF: 3 warfarin 1 mg tablet 1 mg PO DINNER RF: 0 Referrals / Follow Up: Jeff Grullon MD [STAFF PHYSICIAN] - Within 1 Month Vinny Atkinson MD [Primary Care Provider] - Within 2 Weeks Disposition Disposition (needs filled in before D/C Order can be placed): Home, Self Care Charges/Coding Visit Charges Inpatient E&M: 06031 Disch Hosp
[2021-06-30] MEDS: Sodium Bicarbonate 650 MG Tablet PO (11:16)
[2021-06-30] MEDS: Carvedilol 3.125 MG TABLET PO (11:16)
[2021-06-30] MEDS: Doxycycline 100 MG CAPSULE PO (11:17)
[2021-06-30] MEDS: Isosorbide Mononitrate 30 MG Tablet PO (11:17)
[2021-06-30] MEDS: Furosemide 20 MG Tablet PO (11:17)
[2021-06-30 11:20] VITALS: BP 131/70; PULSE 70; RESP 20; TEMP 36.6; O2SAT 95
--- NOTE | 2021-06-30 11:44 | PHA.DC.MR ---
Pharmacy Service has performed discharge medication reconciliation for this patient. No new medications at time of discharge. Medications reviewed are from previously reported home medications. Home Medications multivitamin with folic acid 1 tab PO DAILY 06/06/16 allopurinol 100 mg PO DINNER 08/29/17 calcitriol 0.25 mg PO DINNER 08/29/17 doxycycline hyclate 100 mg capsule 100 mg PO BID #180 cap 01/18/18 ferrous sulfate 325 mg (65 mg iron) tablet 65 mg PO DINNER tab 11/21/18 cyclobenzaprine 10 mg PO QHS 12/31/18 furosemide 20 mg tablet 20 mg PO DAILY #90 tab 01/27/21 sodium bicarbonate 650 mg tablet 650 mg PO BID tablet 03/01/21 levothyroxine 75 mcg tablet 75 mcg PO DAILY #90 tab 04/14/21 isosorbide mononitrate 30 mg tablet,extended release 24 hr 30 mg PO DAILY #90 tab 04/25/21 carvedilol 3.125 mg PO BID 05/19/21 tamsulosin 0.4 mg PO DINNER 05/19/21 warfarin 1 mg tablet 1 mg PO DINNER 05/30/21 warfarin 6 mg PO DINNER 06/28/21 The patient's discharge medication list was reviewed for discrepancies and discrepancies were resolved.
[2021-06-30 12:00] VITALS: O2SAT 100; O2SAT 99
--- NOTE | 2021-06-30 12:05 | CASEMGMT ---
Per Ana POWERS, pt does not qualify for home oxygen at this time. Therapy states no need for any further therapy. Pt voices no concerns with going home and states no further questions/concerns/needs. Bina POWERS CM
--- NOTE | 2021-07-01 13:34 | CASEMGMT ---
GIO HEARN Discharge Follow-up Phone Call: MAGALIE: Noa Strata: 3 Call Date: 07/01/21 Discharge Date: 06/30/21 Time of Call: 1330 Duration: 5 min Admitting Diagnosis: Covid GIO HEARN completed follow-up phone call after recent hospitalization. Patient states he is feeling better and doing fine. Patient had no questions regarding discharge instructions. Patient has follow-up appts scheduled. Patient states that his breathing has been good. Patient had no further questions or concerns regarding discharge instructions.
== END 2021-06-30 12:24 | disposition home or self-care (01) | DRG 640 ==
LOC: ED 15:22 → PCU 16:04
PROVIDERS: Physician Assistant; Admitting Provider Family Medicine; Emergency Provider Emergency Medicine; PCP Family Medicine; Visit Provider Internal Medicine
DX: E86.0 Dehydration (principal); U07.1 COVID-19; C83.39 Diffuse large B-cell lymphoma, extranodal and solid organ sites; I47.2 Ventricular tachycardia; I43 Cardiomyopathy in diseases classified elsewhere; I48.3 Typical atrial flutter; N18.4 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, stage 4 (severe); R55 Syncope and collapse; I13.10 Hypertensive heart and chronic kidney disease without heart failure, with stage 1 through stage 4 chronic kidney disease, or unspecified chronic kidney disease; D63.1 Anemia in chronic kidney disease; I25.10 Atherosclerotic heart disease of native coronary artery without angina pectoris; I08.3 Combined rheumatic disorders of mitral, aortic and tricuspid valves; E03.9 Hypothyroidism, unspecified; E78.00 Pure hypercholesterolemia, unspecified; I48.0 Paroxysmal atrial fibrillation; G47.33 Obstructive sleep apnea (adult) (pediatric); N40.0 Benign prostatic hyperplasia without lower urinary tract symptoms; M10.9 Gout, unspecified; Z95.1 Presence of aortocoronary bypass graft; Z95.2 Presence of prosthetic heart valve; Z95.0 Presence of cardiac pacemaker; Z79.01 Long term (current) use of 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; Z79.890 Hormone replacement therapy; Z79.899 Other long term (current) drug therapy; Z86.718 Personal history of other venous thrombosis and embolism; Z86.73 Personal history of transient ischemic attack (TIA), and cerebral infarction without residual deficits
CPT/HCPCS: 36415; 70450; 71045; 80048; 80053; 81001; 83605; 83690; 83735; 84100; 84145; 84439; 84443; 84484; 85025; 85610; 87633; 87635; 93005; 97161; 97166; 99251; 99285; J7030; U0005; A4216; G0463; J2405; U0003

== ENCOUNTER 2021-07-08 13:59 | Outpatient (RCR) | payer MEDICARE, OTHER, SELFPAY ==
[2021-06-09 09:59] VITALS: BMI 28.8
[2021-06-24 10:27] LABS: International Normalized Ratio 2.6; Prothrombin Time (Protime)PT. 27.4 SECONDS (11.7-14.9)
[2021-07-08 14:43] LABS: International Normalized Ratio 3.3; Prothrombin Time (Protime)PT. 32.4 SECONDS (11.7-14.9)
== END 2021-07-08 18:00 | disposition home or self-care (01) ==
LOC: LAB 13:59
PROVIDERS: Family Provider Family Medicine; PCP Family Medicine; Referring Provider Internal Medicine Cardiovascular Disease; Visit Provider Internal Medicine Cardiovascular Disease
DX: Z95.2 Presence of prosthetic heart valve (principal); Z79.01 Long term (current) use of 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
CPT/HCPCS: 36415; 85610

== ENCOUNTER 2021-07-24 17:14 | Emergency (ER) | payer MEDICARE, OTHER, SELFPAY ==
[2021-07-24 17:15] VITALS: BP 148/58; PULSE 71; RESP 18; TEMP 36.9; O2SAT 100; BMI 29.0
[2021-07-24 18:14] VITALS: BP 158/50; PULSE 71; RESP 18; O2SAT 95
--- NOTE | 2021-07-24 18:15 | CT_ITS ---
STUDY: CT CERVICAL SPINE WITHOUT CONTRAST REASON FOR EXAM: Male, 71 years old. Injury fall neck pain RADIATION DOSAGE (If Supplied By Facility): CTDIvol = ( 25.95 ) mGy, DLP = ( 578.49 ) mGycm TECHNIQUE: High resolution transaxial imaging was performed without contrast material. Sagittal and coronal images were reconstructed. Individualized dose optimization techniques were used for this CT. COMPARISON: None FINDINGS: Craniocervical junction and cervical spine are intact and aligned. Mineralization is normal. Paraspinous soft tissues are normal. Age-related degeneration produces moderate thecal sac stenosis at C5-C6 and C6-C7. There are scattered moderate bilateral foraminal stenoses, worse at C5-C6 and C6-7. Pacemaker wire is present in the right upper chest. CT/Spine Cervical without Contras IMPRESSION: 1. No acute osseous injury. 2. Spondylotic thecal sac and foraminal stenosis. Electronically Signed: Moses Jackson MD at 18:53 EDT Tel , Service support ,
--- NOTE | 2021-07-24 18:15 | CT_ITS ---
STUDY: CT BRAIN WITHOUT CONTRAST REASON FOR EXAM: Male, 71 years old. Fall injury headache on blood thinners RADIATION DOSAGE (If Supplied By Facility): CTDIvol = ( 44.99 ) mGy, DLP = ( 812.98 ) mGycm TECHNIQUE: Transaxial CT imaging of the brain was performed without administration of intravenous contrast material. Individualized dose optimization techniques were used for this CT. COMPARISON: 28 June 2021 FINDINGS: Brain parenchyma is without focal lesions, mass effect, acute intracranial hemorrhage, extra parenchymal fluid collections, hydrocephalus or herniation. The skull is intact. CT/Brain/Head without Contrast IMPRESSION: 1. Normal CT brain. Electronically Signed: Moses Jackson MD at 18:52 EDT Tel , Service support ,
--- NOTE | 2021-07-24 18:23 | ED.VIS.FALL ---
HPI HPI - Fall History of Present Illness Chief Complaint: Fall Informant: patient and spouse/S.O. Narrative Narrative: Patient is a 71-year-old male with history of mechanical heart valve on Coumadin presenting after a fall. Patient states he was at his grandsons birthday constitution party and was flying a tight. He backed up and then tripped over a rock. He landed on his butt and then hit his head on the gravel driveway. He is now having a headache as well as left hip pain. He also has an abrasion to his left middle finger. He states his INR was 4.6 on Sunday and he did hold his Coumadin on Sunday and then his dose was decreased. Patient currently denies any other complaints. Did not take any for pain prior to arrival. Tetanus Immunization: Unknown [facility] Medical History Abnormal results of thyroid function studies Anemia Atrial flutter Bacterial endocarditis Benign essential hypertension Biventricular cardiac pacemaker in situ (~05/26/16) CAD (coronary artery disease) Cardiomyopathy in disease classified elsewhere 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, stage III (moderate) COVID-19 Diffuse large b-cell lymphoma, extranodal and solid organ sites GI bleed GI bleed Gout History of DVT (deep vein thrombosis) History of pacemaker Hypothyroidism (acquired) Infectious endocarditis MRSA (methicillin resistant Staphylococcus aureus) infection Non-rheumatic mitral regurgitation Non-rheumatic mitral valve stenosis Non-ST elevation (NSTEMI) myocardial infarction MIA (obstructive sleep apnea) Paroxysmal ventricular tachycardia Pure hypercholesterolemia Rheumatic aortic stenosis Rheumatic mitral insufficiency TIA (transient ischemic attack) (~11/19/15) Home Medications multivitamin with folic acid 1 tab PO DAILY 06/06/16 [History Last Taken 06/27/21] allopurinol 100 mg PO DINNER 08/29/17 [History Last Taken 06/27/21] calcitriol 0.25 mg PO DINNER 08/29/17 [History Last Taken 06/27/21] doxycycline hyclate 100 mg capsule 100 mg PO BID #180 cap 01/18/18 [Rx Last Taken 06/28/21] ferrous sulfate 325 mg (65 mg iron) tablet 65 mg PO DINNER tab 11/21/18 [History Last Taken 06/27/21] cyclobenzaprine 10 mg PO QHS 02/12/19 [History Last Taken 06/27/21] furosemide 20 mg tablet 20 mg PO DAILY #90 tab 01/27/21 [Rx Last Taken 06/28/21] sodium bicarbonate 650 mg tablet 650 mg PO BID tablet 03/01/21 [History Last Taken 06/28/21] levothyroxine 75 mcg tablet 75 mcg PO DAILY #90 tab 04/14/21 [Rx Last Taken 06/28/21] isosorbide mononitrate 30 mg tablet,extended release 24 hr 30 mg PO DAILY #90 tab 04/25/21 [Rx Last Taken 06/28/21] carvedilol 3.125 mg PO BID 05/19/21 [History Last Taken 06/28/21] tamsulosin 0.4 mg PO DINNER 05/19/21 [History Last Taken 06/27/21] warfarin 1 mg tablet 1 mg PO DINNER 05/30/21 [History Last Taken 06/28/21] warfarin 6 mg PO DINNER 06/28/21 [History Last Taken 06/28/21] Allergy/AdvReac Type Severity Reaction Status Date / Time No Known Allergies Allergy Verified 07/24/21 17:14 Family History Father CAD (coronary artery disease) CABG Brother CAD (coronary artery disease) CABG Mother Diabetes Sister Breast cancer Diabetes Sister Cancer breast Diabetes Surgical History dual chamber pacemaker implantation (~10/2010) History of aortic valve replacement (~08/2003) History of appendectomy History of atrioventricular chiquita ablation History of cholecystectomy History of evacuation of hematoma History of mechanical aortic valve replacement (~1986) History of mitral valve repair (~08/2003) Social History household members: spouse housing: house Smoking Status: Never smoker alcohol intake: never substance use type: does not use caffeine: No what type of physical activity do you participate in: weight training and other details: Nustep frequency: 3-4 times per week duration: 45-60 minutes/day seatbelt use: always do you feel safe at home: Yes ROS ROS ED Constitutional Constitutional ED: Denies fever(s) Eyes Eyes: Denies change in vision or eye pain ENT ENT ED: Denies dental pain, ear pain, mouth lesions, nasal trauma or rhinorrhea Cardiovascular Cardiovascular: Denies chest pain or syncope Respiratory/Chest Respiratory/Chest: Denies cough or dyspnea Gastrointestinal Gastrointestinal: Denies abdominal pain or nausea Genitourinary Genitourinary ED: Denies dysuria or hematuria Musculoskeletal Musculoskeletal: Reports other Details: Left hip pain ; Denies back pain, myalgias or neck pain Integumentary Reports Abrasions; Denies wounds Neurologic Neurologic: Reports headache(s); Denies paresthesias or weakness Psychiatric Psychiatric: Denies anxiety or depression Hematologic/Lymphatic Hematologic/Lymphatic: Reports easy bleeding and easy bruising EXAM Physical Exam Const Vital Signs: 07/24/21 17:15 07/24/21 17:43 07/24/21 18:14 Temperature 98.4 F Temperature Source Temporal Pulse Rate 71 71 Respiratory Rate 18 18 Respiratory Effort Normal Blood Pressure 148/58 H 158/50 H Blood Pressure Mean 88 86 Pulse Ox 100 95 Oxygen Delivery Method Room Air Room Air Room Air 07/24/21 20:35 Temperature Temperature Source Pulse Rate 69 Respiratory Rate 16 Respiratory Effort Blood Pressure 138/78 H Blood Pressure Mean Pulse Ox 98 Oxygen Delivery Method Positive well nourished and well developed General Appearance ED: well developed HEENT Reports normocephalic, head/scalp atraumatic and hearing grossly normal bilaterally HEENT Narrative: No septal hematoma present normocephalic; Negative for Kat's sign, raccoon eyes or scalp tenderness Nose: no nasal discharge Tympanic Membrane ED: Yes TM's normal bilaterally Tympanic Membrane: TM's normal bilaterally Mouth ED: Yes other Mouth: other Other Details: No Malocclusion Eyes PERRL Neck full ROM and supple General: Negative for tenderness Thyroid: Negative for tender Chest Wall inspection of chest normal and palpation of chest normal Chest: Negative for crepitus Resp normal respiratory effort, no retractions and clear to auscultation bilaterally Cardio regular rate and regular rhythm Jugular Venous Distention: Negative for JVD Peripheral Pulses: pulses 2+ throughout GI non-tender and non-distended Palpation: soft; Negative for guarding or rebound tenderness present Back/Spine Cervical Spine: Negative for cervical spine tenderness Thoracic Spine / Upper Back: Negative for thoracic spinal tenderness Lumbar Spine / Lower Back: Negative for lumbar spinal tenderness Extremity normal to inspection and full ROM Extremity Narrative: pelvis stable, no deformity . Patient points to his left hip as area of pain however I cannot reproduce it with range of motion of the hip. Neuro oriented x3, moves all extremities and no sensory deficits noted Sensorium / Orientation: alert Motor Exam: strength 5/5 throughout Psych mental status grossly normal Skin no wounds Skin Narrative: Nonbleeding superficial abrasion noted to the posterior, middle scalp. Nonbleeding abrasion noted to the distal aspect of the left middle finger pad Trauma: abrasion MDM MDM MDM Narrative Medical decision making narrative: Patient evaluated after mechanical fall. He appears nontoxic in no acute distress. Given Tylenol for pain. INR is recheck today it is 3.1. He is now therapeutic. CT does not show any acute intracranial process or acute fracture of the neck. X-ray of the hip does not show any acute fracture. Patient is counseled on generalized wound care. He does not require any suture repair of his abrasion/lacerations. He is discharged home with instructions take Tylenol and follow-up with his primary care doctor. He is counseled on return precautions. He verbalizes agreement understand this plan. Lab Data Attestation: I reviewed the patient's lab results. Labs: Laboratory Results - last 24 hr 07/24/21 18:48 PT 31.4 H INR 3.1 Radiography X-Ray: Left Hip, Read by ED Physician, Read by Radiologist and No Fracture Diagnostic Testing: Radiology Impression Brain CT 07/24/21 18:15 IMPRESSION: 1. Normal CT brain. Electronically Signed: Moses Jackson MD at 18:52 EDT Tel , Service support , Cervical Spine CT 07/24/21 18:15 IMPRESSION: 1. No acute osseous injury. 2. Spondylotic thecal sac and foraminal stenosis. Electronically Signed: Moses Jackson MD at 18:53 EDT Tel , Service support , Hip/Pelvis X-Ray 07/24/21 18:30 IMPRESSION: Normal x-ray examination of the pelvis and hip. Electronically Signed: Hermann Veloz DO at 19:49 EDT Tel [phone], Service support , Discharge Plan Triage Chief Complaint: Fall ED Provider: Jodi Friedman Dx/Rx/DC Orders Clinical Impression: Fall, Closed head injury, Abrasion hand, Abrasion of finger of left hand, Acute pain of left hip Instructions: ED Hip Contusion, ED Skin Avulsion, ED Fall Prevention Prescriptions: No Action doxycycline hyclate 100 MG capsule 100 mg PO BID Qty: 180 RF: 3 ferrous sulfate 325 mg (65 mg iron) tablet 65 mg PO DINNER RF: 0 multivitamin with folic acid 1 TABLET tablet 1 tab PO DAILY RF: 0 allopurinol 100 MG tablet 100 mg PO DINNER RF: 0 calcitriol 0.25 MCG capsule 0.25 mg PO DINNER RF: 0 cyclobenzaprine 10 MG tablet 10 mg PO QHS RF: 0 carvedilol 3.125 mg tablet 3.125 mg PO BID RF: 0 tamsulosin 0.4 mg capsule 0.4 mg PO DINNER RF: 0 warfarin 6 mg tablet 6 mg PO DINNER RF: 0 furosemide 20 mg tablet 20 mg PO DAILY Qty: 90 RF: 3 sodium bicarbonate 650 mg tablet 650 mg PO BID RF: 0 levothyroxine 75 mcg tablet 75 mcg PO DAILY Qty: 90 RF: 3 isosorbide mononitrate 30 mg tablet extended release 24 hr 30 mg PO DAILY Qty: 90 RF: 3 warfarin 1 mg tablet 1 mg PO DINNER RF: 0 Primary Care Provider: Vinny Atkinson Referrals: Vinny Atkinson MD [Primary Care Provider] - Disposition Disposition: Home, Self Care Discharge Date/Time: 07/24/21 20:35
--- NOTE | 2021-07-24 18:30 | RAD_ITS ---
STUDY: X-RAY - PELVIS AND LEFT HIP REASON FOR EXAM: Male, 71 years old. Injury/Pain TECHNIQUE: 3 views of the pelvis and hip. COMPARISON: None. FINDINGS: There is a non-specific bowel gas pattern. Normal visualized soft tissue structures. Degenerative lower lumbar changes. Normal bilateral iliac wings, sacroiliac joints and visualized sacrum. Normal bilateral superior and inferior pubic rami. Normal pubic symphysis. Normal bilateral ischial tuberosities. Normal visualized femoral head. Normal acetabulum. Normal hip joint. RAD/HIP, UNI W/ Pelvis 2-3 Views IMPRESSION: Normal x-ray examination of the pelvis and hip. Electronically Signed: Hermann Veloz DO at 19:49 EDT Tel [phone], Service support ,
[2021-07-24] MEDS: Acetaminophen 325 MG Tablet 650 MG PO (18:47)
[2021-07-24 19:10] LABS: International Normalized Ratio 3.1; Prothrombin Time (Protime)PT. 31.4 SECONDS (11.7-14.9)
[2021-07-24 20:35] VITALS: BP 138/78; PULSE 69; RESP 16; O2SAT 98
== END 2021-07-24 20:35 | disposition home or self-care (01) ==
PROVIDERS: Emergency Provider Emergency Medicine; PCP Family Medicine
DX: S09.90XA Unspecified injury of head, initial encounter (principal); S60.512A Abrasion of left hand, initial encounter; S60.419A Abrasion of unspecified finger, initial encounter; M25.552 Pain in left hip; I25.10 Atherosclerotic heart disease of native coronary artery without angina pectoris; I25.2 Old myocardial infarction; Z95.2 Presence of prosthetic heart valve; Z95.0 Presence of cardiac pacemaker; Z86.718 Personal history of other venous thrombosis and embolism; Z79.01 Long term (current) use of 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; W01.0XXA Fall on same level from slipping, tripping and stumbling without subsequent striking against object, initial encounter
CPT/HCPCS: 70450; 72125; 73502; 85610; 99283; A4216

== ENCOUNTER → 2021-08-03 09:56 | Outpatient (CLI) | payer MEDICARE, OTHER, SELFPAY ==
--- NOTE | 2021-08-03 10:01 | US_ITS ---
STUDY: ABDOMINAL ULTRASOUND - RIGHT UPPER QUADRANT REASON FOR VISIT: Male, 71 years old ELEVATED LIVER LEVELS TECHNIQUE: Ultrasound evaluation of the right upper quadrant was performed with real-time and static hart-scale imaging. TECHNICAL QUALITY: Adequate. COMPARISON: Comparison is made with prior examination dated 04/04/2021. FINDINGS: Liver: The liver measures 17.7 cm. There is increased echogenicity consistent with fatty infiltration. The bile ducts are within normal limits. There is hepatic color flow. The direction of portal flow is hepatopetal. There is no demonstrated mass lesion. Gallbladder: The patient is status post cholecystectomy. Common Bile Duct (C.B.D.): The common bile duct measures 6 mm. Pancreas: Normal size of the head, body and tail of the pancreas. There is normal echogenicity of the pancreas. There is no demonstrated pancreatic mass or cyst. Right Kidney: Normal size of the right kidney. The right kidney measures 11.2 cm x 4 cm x 4.2 cm. Normal renal cortex. The right cortex measures 1.2 cm. There is no demonstrated renal mass or cyst. There is no right hydronephrosis. IMPRESSION: Fatty infiltration of the liver. Status post cholecystectomy. Electronically Signed: Donte Álvarez MD at 15:56 EDT , Service support , STUDY: ABDOMINAL ULTRASOUND - ELASTOGRAPHY REASON FOR VISIT: Male, 71 years old. Fatty infiltration of the liver. Elevated liver enzymes. TECHNIQUE: Liver stiffness measurements were obtained on a [employer] 85 ultrasound machine using a CA 1-7 probe following the SRU guidelines. 3 measurements were obtained using a 2-D-SWE method. TheIQR/M was 12% suggesting a quality data set. TECHNICAL QUALITY: Adequate. COMPARISON: Comparison is made with prior examination done earlier today. FINDINGS: Liver: Fatty infiltration of the liver. Median liver stiffness measured 10.3 kPa. US/Abdomen Limited IMPRESSION: Liver stiffness measures 10.3 kPa compatible with F3 Metavir score. Electronically Signed: Donte Álvarez MD at 15:57 EDT , Service support ,
== END ==
PROVIDERS: PCP Family Medicine
DX: K76.0 Fatty (change of) liver, not elsewhere classified (principal); I25.10 Atherosclerotic heart disease of native coronary artery without angina pectoris; N18.9 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, unspecified; G47.30 Sleep apnea, unspecified; R74.01 Elevation of levels of liver transaminase levels; Z95.0 Presence of cardiac pacemaker; Z95.2 Presence of prosthetic heart valve; Z79.01 Long term (current) use of 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
CPT/HCPCS: 76705; 76981

== ENCOUNTER 2021-08-11 13:35 | Outpatient (RCR) | payer MEDICARE, OTHER, SELFPAY ==
[2021-07-19 23:52] VITALS: BMI 28.8
[2021-07-22 12:26] LABS: Absolute Lymphocyte Count 1.09 X10^3/uL (0.83-4.51); Absolute Neutrophil Count 3.5 X10^3/uL (2.0-7.7); Basophil# 0.05 X10^3/uL; Basophil% 0.9 % (0-1); Eosinophil# 0.23 X10^3/uL; Eosinophils% 4.2 % (0-5); Hematocrit 33.9 % (40-54); Lymphocyte # 1.09 X10^3/ul (0.83-4.51); Lymphocyte % 20.1 % (19-41); Mean Corp Hgb Conc 32.4 g/dL (32-36); Mean Corpuscular Hgb 32.2 pg (27.0-32.0); Mean Corpuscular Volume 99.1 fL (80-94); Mean Platelet Vol. 12.2 fl (6.2-12.0); Monocyte% 9.2 % (0-10); NRBC Flagged by Analyzer 0 % (0-5); Neutrophil # 3.52 X10^3/uL (2.7-7.7); Platelet Count 118 K/mm3 (150-450); RBC Distribution Width CV 16.4 % (11.6-14.6); RBC Distribution Width SD 59.9 fl (35.1-43.9); Red Blood Count 3.42 M/mm3 (4.6-6.2); White Blood Count 5.4 K/mm3 (4.4-11.0)
[2021-07-22 12:37] LABS: Prothrombin Time (Protime)PT. 42.7 SECONDS (11.7-14.9)
[2021-07-22 12:40] LABS: International Normalized Ratio 4.6
[2021-07-22 12:46] LABS: ALB/GLOB Ratio 0.8 RATIO (0.9-2.4); AST(SGOT) 54 U/L (15-37); Alanine Aminotransfer ALT/SGPT 31 U/L (16-61); Albumin, Serum 3.3 g/dL (3.2-5.0); Alkaline Phosphatase 231 U/L (45-117); Anion Gap 6 (5-15); BUN 55 mg/dL (7-18); BUN/Creat Ratio 19.6 RATIO (10-20); Calcium,Total 9.5 mg/dL (8.5-10.1); Chloride 105 mmol/L (98-107); Creatinine, Serum 2.81 mg/dL (0.70-1.30); EST Glomerular Filtration Rate 24 mL/min (>60); Est Glom Filt Rate - Afr Amer 29 mL/min (>60); Ferritin 158 ng/mL (26-388); Globulin 4.4 g/dL (2.2-4.2); Glucose 172 mg/dL (74-106); Iron 68 ug/dL (65-175); Iron Binding Capacity,Total 282 ug/dL (250-450); PERCENT IRON SATURATION 24.1 % (15.0-55.0); Potassium 4.4 mmol/L (3.5-5.1); Protein, Total 7.7 g/dL (6.4-8.2); Sodium Level 138 mmol/L (136-145)
[2021-07-23 16:08] LABS: ANTINUCLEAR ANTIBODIES DIRECT Negative (Negative)
[2021-07-23 23:07] LABS: Alpha Antitrypsin Serum 166 mg/dL (101-187); Anti-Mitochondrial AB <20.0 Units (0.0-20.0)
[2021-07-23 23:09] LABS: Anti-Smooth Muscle ABS 7 Units (0-19); Immunoglobulin A 160 mg/dL (61-437); t-Transglutaminase IgA <2 U/mL (0-3)
[2021-07-28 14:02] LABS: International Normalized Ratio 3.4; Prothrombin Time (Protime)PT. 33.4 SECONDS (11.7-14.9)
[2021-08-04 14:40] LABS: International Normalized Ratio 2.1; Prothrombin Time (Protime)PT. 23.2 SECONDS (11.7-14.9)
[2021-08-11 14:22] LABS: International Normalized Ratio 2.7; Prothrombin Time (Protime)PT. 27.7 SECONDS (11.7-14.9)
== END 2021-08-11 18:00 | disposition home or self-care (01) ==
LOC: LAB 13:35
PROVIDERS: Family Provider Family Medicine; PCP Family Medicine; Referring Provider Internal Medicine Cardiovascular Disease; Visit Provider Internal Medicine Cardiovascular Disease
DX: R74.01 Elevation of levels of liver transaminase levels (principal); I25.10 Atherosclerotic heart disease of native coronary artery without angina pectoris; N18.9 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, unspecified; G47.30 Sleep apnea, unspecified; Z95.0 Presence of cardiac pacemaker; Z95.2 Presence of prosthetic heart valve; Z79.01 Long term (current) use of 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
CPT/HCPCS: 36415; 80053; 82103; 82728; 82784; 83516; 83540; 83550; 85025; 85610; 86038

== ENCOUNTER 2021-08-18 12:36 | Inpatient (IN) | payer MEDICARE, OTHER, SELFPAY ==
[2021-08-18] VITALS (11 sets, daily range): BP systolic 136–163; BP diastolic 53–86; PULSE 70–80; RESP 16–36; TEMP 36.3–36.8; O2SAT 95–99; BMI 29.7; BMI 28.7
--- NOTE | 2021-08-18 13:06 | RAD_ITS ---
STUDY: X-RAY CHEST REASON FOR EXAM: Male, 71 years old. Cough, sob TECHNIQUE: Single AP portable view of the chest. COMPARISON: Comparison is made with prior study 06/28/2021. FINDINGS: EKG electrodes are seen. Elevation of the right hemidiaphragm. Focal right lower lobe infiltrate. There is no demonstrated pleural abnormality. Sternal cerclage wires and vascular clips are present from a prior sternotomy and coronary artery bypass graft procedure (CABG). A right-sided unipolar pacemaker is seen. Moderate cardiomegaly. Normal mediastinum and max. Normal visualized pulmonary arteries. There is atherosclerotic calcification of the aortic arch with tortuosity. There are diffuse degenerative changes of the visualized thoracic spine. There is degenerative osteoarthritis of the bilateral shoulders. There is no demonstrated abnormality of the visualized soft tissue structures of the upper abdomen. RAD/Chest 1 View (Portable) IMPRESSION: Right lower lobe infiltrate. Cardiomegaly. Electronically Signed: Donte Álvarez MD at 13:50 EDT , Service support ,
--- NOTE | 2021-08-18 13:06 | CT_ITS ---
STUDY: CT BRAIN WITHOUT CONTRAST REASON FOR EXAM: Male, 71 years old. Altered mental status following a recent fall. RADIATION DOSAGE (If Supplied By Facility): CTDIvol = ( 44.99 ) mGy, DLP = ( 779.24 ) mGycm TECHNIQUE: Transaxial CT imaging of the brain was performed without administration of intravenous contrast material. Individualized dose optimization techniques were used for this CT. COMPARISON: Comparison is made with prior study dated 07/24/2021. FINDINGS: Normal soft tissue structures. Normal calvarium. There is mild cerebral atrophy with widening of the extra-axial spaces and ventricular dilatation. There are areas of decreased attenuation within the white matter tracts of the supratentorial brain, consistent with microvascular disease changes. Normal basal ganglia and thalami. Normal brainstem. Normal cerebellum. There is no intracranial hemorrhage. There are no findings of an acute ischemic infarction. Partial opacification of the right sphenoid sinus. CT/Brain/Head without Contrast IMPRESSION: Chronic involutional changes of the brain. Electronically Signed: Donte Álvarez MD at 14:05 EDT , Service support ,
--- NOTE | 2021-08-18 13:07 | EKG12_ITS ---
Test Reason : CONFUSION Blood Pressure : / mmHG Vent. Rate : 070 BPM Atrial Rate : 070 BPM P-R Int : 000 ms QRS Dur : 168 ms QT Int : 532 ms P-R-T Axes : 000 -07 121 degrees QTc Int : 574 ms Ventricular-paced rhythm Biventricular pacemaker detected Abnormal ECG Confirmed by ALLEN NIX, AMINA ([id number]), technical editor TRINA VIVAR ([id number]) on 08/22/2021 7:57:46 AM Referred By: BB/RU Confirmed By:AMINA VILLA MD
--- NOTE | 2021-08-18 13:08 | EX.ED.DYSGE1 ---
HPI History of Present Illness Chief Complaint: Confusion Informant: patient and spouse/S.O. Narrative Narrative: Patient is on warfarin for a mechanical aortic heart valve. About 3 weeks ago, he was flying a kite outside and lost his balance, falling backward hitting his head against some gravel on the ground, and injuring one of his legs. He was seen in the ER and had a negative CT head and pelvis x-ray. About 3 or 4 days ago, he started getting confused. He is normally not confused at all and this is all new for him. He has been appearing short of breath and his cough is gotten worse recently over the last couple months, states he always looks like he is having shortness of breath as he does now off and on. He was vaccinated against Covid. [facility] Medical History Abnormal results of thyroid function studies Anemia Atrial flutter Bacterial endocarditis Benign essential hypertension Biventricular cardiac pacemaker in situ (~05/26/16) CAD (coronary artery disease) Cardiomyopathy in disease classified elsewhere 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, stage III (moderate) COVID-19 Diffuse large b-cell lymphoma, extranodal and solid organ sites GI bleed GI bleed Gout History of DVT (deep vein thrombosis) History of pacemaker Hypothyroidism (acquired) Infectious endocarditis MRSA (methicillin resistant Staphylococcus aureus) infection Non-rheumatic mitral regurgitation Non-rheumatic mitral valve stenosis Non-ST elevation (NSTEMI) myocardial infarction MIA (obstructive sleep apnea) Paroxysmal ventricular tachycardia Pure hypercholesterolemia Rheumatic aortic stenosis Rheumatic mitral insufficiency TIA (transient ischemic attack) (~11/19/15) Home Medications multivitamin with folic acid 1 tab PO DAILY 06/06/16 [History Last Taken 06/27/21] allopurinol 100 mg PO DINNER 08/29/17 [History Last Taken 06/27/21] calcitriol 0.25 mg PO DINNER 08/29/17 [History Last Taken 06/27/21] doxycycline hyclate 100 mg capsule 100 mg PO BID #180 cap 01/18/18 [Rx Last Taken 06/28/21] ferrous sulfate 325 mg (65 mg iron) tablet 65 mg PO DINNER tab 11/21/18 [History Last Taken 06/27/21] cyclobenzaprine 10 mg PO QHS 12/31/18 [History Last Taken 06/27/21] furosemide 20 mg tablet 20 mg PO DAILY #90 tab 01/27/21 [Rx Last Taken 06/28/21] sodium bicarbonate 650 mg tablet 650 mg PO BID tablet 03/01/21 [History Last Taken 06/28/21] levothyroxine 75 mcg tablet 75 mcg PO DAILY #90 tab 04/14/21 [Rx Last Taken 06/28/21] isosorbide mononitrate 30 mg tablet,extended release 24 hr 30 mg PO DAILY #90 tab 04/25/21 [Rx Last Taken 06/28/21] carvedilol 3.125 mg PO BID 05/19/21 [History Last Taken 06/28/21] tamsulosin 0.4 mg PO DINNER 05/19/21 [History Last Taken 06/27/21] warfarin 1 mg tablet 1 mg PO DINNER 05/30/21 [History Last Taken 06/28/21] warfarin 6 mg PO DINNER 06/28/21 [History Last Taken 06/28/21] pantoprazole 40 mg tablet,delayed release tablet PO 08/02/21 [History Last Taken Unknown] Allergy/AdvReac Type Severity Reaction Status Date / Time No Known Allergies Allergy Verified 08/18/21 12:41 Family History Father CAD (coronary artery disease) CABG Brother CAD (coronary artery disease) CABG Mother Diabetes Sister Breast cancer Diabetes Sister Cancer breast Diabetes Surgical History (Updated 08/18/21 @ 14:[address] Alli Centeno MD) dual chamber pacemaker implantation (~10/2010) History of aortic valve replacement (~08/2003) History of appendectomy History of atrioventricular chiquita ablation History of cholecystectomy History of evacuation of hematoma History of mechanical aortic valve replacement (~1986) History of mitral valve repair (~08/2003) Social History household members: spouse housing: house Smoking Status: Never smoker alcohol intake: never substance use type: does not use caffeine: No what type of physical activity do you participate in: weight training and other details: Nustep frequency: 3-4 times per week duration: 45-60 minutes/day seatbelt use: always do you feel safe at home: Yes ROS ROS ED Constitutional Constitutional ED: Denies chills or fever(s) Eyes Eyes: Denies change in vision or diplopia ENT ENT ED: Denies rhinorrhea or sore throat Cardiovascular Cardiovascular: Denies chest pain or palpitations Respiratory/Chest Respiratory/Chest: Reports as per HPI, cough and dyspnea Gastrointestinal Gastrointestinal: Denies abdominal pain, diarrhea, nausea or vomiting Genitourinary Genitourinary ED: Denies dysuria or hematuria Musculoskeletal Musculoskeletal: Denies back pain or neck pain Integumentary Denies abscess or rash Neurologic Neurologic: Reports as per HPI and confusion; Denies headache(s), paresthesias or weakness Psychiatric Psychiatric: Denies anxiety or suicidal thoughts EXAM Physical Exam Const Vital Signs: 08/18/21 12:38 08/18/21 13:12 Temperature 98.0 F Temperature Source Temporal Pulse Rate 73 70 Respiratory Rate 36 H 24 H Blood Pressure 163/61 H 151/55 H Blood Pressure Mean 95 87 Pulse Ox 99 98 Oxygen Delivery Method Room Air Room Air Positive well nourished and well developed General Appearance ED: well developed and NAD HEENT Reports moist mucous membranes normocephalic and atraumatic Eyes PERRL and EOMs intact bilaterally Neck full ROM and supple Resp normal respiratory effort Resp Narrative: Almost appears to have Etienne-Osorio respirations at times being tachypneic and then going back to normal. Patient states he is not feeling dyspneic at this time. states this is how he is breathing all of the time. Auscultation: rales right base Cardio regular rate and regular rhythm Heart Sounds: click early GI non-tender and non-distended Auscultation: normoactive bowel sounds Palpation: soft Back/Spine no CVA tenderness General Back: other FROM Extremity normal to inspection General Extremety ED: Negative for edema, pulses abnormal or tenderness General Extremity: Negative for edema or pulses abnormal Neuro CN's II-XII intact bilaterally and no sensory deficits noted Neuro Narrative: Keenly alert. Sensorium / Orientation: awake, alert, oriented to person and orientation impaired; Negative for oriented to place or oriented to time Motor Exam: strength 5/5 throughout Skin no rashes or lesions noted and no wounds MDM MDM MDM Narrative Medical decision making narrative: Vital signs remained stable. His respiratory rate did wax and wane but for the most part was 18-20 on my count/exam. He does have a right lower lobe infiltrate on the chest x-ray and his Covid is negative. He does not have a leukocytosis, does not meet SIRS criteria therefore no lactate or blood cultures was felt needed. Antibiotics were ordered. However, after discussing with the more, I was unaware that the patient's doxycycline on his medication list is continuous daily because of having a history of a MRSA line infection. Therefore I do think it is reasonable to get blood cultures and a lactate prior to starting antibiotics which was done. His Etienne-Osorio respirations are very interesting here in the emergency department. His pulse ox goes down to 85%, the lowest that I saw, his breathing speeds up, then his oxygen levels go back up to 98% and his breathing slows back down to normal. He kept doing the cycles in the emergency department so oxygen was placed on him. Late in the patient's ED course I received a copy on the fax machine of the PCPs office note from today, it shows that the patient has a history of [place], so I will also add an ammonia level since the states he has had pneumonia in the past and has never been confused like this with it. Additional information includes that they did check a urine in the office, copy was included, it is negative for infection. Also, he was amnestic about events he normally would remember, his had to help him use a spoon to eat today, and he could not remember that he wears a CPAP machine every night, was struggling to answer questions appropriately, and he had a hard time buttoning his pants. Lab Data Attestation: I reviewed the patient's lab results. Labs: Laboratory Results - last 24 hr 08/18/21 08/18/21 08/18/21 13:20 13:20 13:20 WBC 6.2 RBC 3.69 L Hgb 12.1 L Hct 38.3 L MCV 103.8 H MCH 32.8 H MCHC 31.6 L RDW Std Deviation 71.3 H RDW Coeff of Jennifer 18.7 H Plt Count 86 L MPV 12.5 H Immature Gran % (Auto) 0.200 Neut % (Auto) 65.0 Lymph % (Auto) 19.5 Cross % (Auto) 11.9 H Eos % (Auto) 2.4 Baso % (Auto) 1.0 Absolute Neuts (auto) 4.0 Absolute Lymphs (auto) 1.20 Nucleated RBC % 0 Differential Comment SCANNED Anisocytosis 2+ Microcytosis 1+ Macrocytosis 1+ PT 41.2 H INR 4.4 H* Sodium 145 Potassium 4.3 Chloride 111 H Carbon Dioxide 26.0 Anion Gap 8 BUN 49 H Creatinine 2.63 H Estim Creat Clear Calc 23.74 Est GFR (MDRD) Af Amer 31 L Est GFR (MDRD) Non-Af 26 L BUN/Creatinine Ratio 18.6 Glucose 107 H Calcium 9.7 Troponin I High Sens 51 Radiography Diagnostic Testing: Radiology Impression Brain CT 08/18/21 13:06 IMPRESSION: Chronic involutional changes of the brain. Electronically Signed: Donte Álvarez MD at 14:05 EDT , Service support , Chest X-Ray 08/18/21 13:06 IMPRESSION: Right lower lobe infiltrate. Cardiomegaly. Electronically Signed: Donte Álvarez MD at 13:50 EDT , Service support , Discharge Plan Dx/Rx/DC Orders Clinical Impression: Pneumonia, Delirium due to another medical condition, History of heart valve replacement with mechanical valve, Supratherapeutic INR, Hypoxemia Disposition Disposition: Acute Care [facility]
[2021-08-18 13:32] LABS: Basophil# 0.06 X10^3/uL; Eosinophil# 0.15 X10^3/uL; Eosinophils% 2.4 % (0-5); Hematocrit 38.3 % (40-54); Hemoglobin 12.1 g/dL (13.0-16.5); Lymphocyte % 19.5 % (19-41); Mean Corp Hgb Conc 31.6 g/dL (32-36); Mean Corpuscular Hgb 32.8 pg (27.0-32.0); Mean Corpuscular Volume 103.8 fL (80-94); Mean Platelet Vol. 12.5 fl (6.2-12.0); Monocyte# 0.73 X10^3/uL; Monocyte% 11.9 % (0-10); NRBC Flagged by Analyzer 0 % (0-5); POSITIVE COUNT YES; POSITIVE MORPHOLOGY YES; Platelet Count 86 K/mm3 (150-450); RBC Distribution Width CV 18.7 % (11.6-14.6); RBC Distribution Width SD 71.3 fl (35.1-43.9); Red Blood Count 3.69 M/mm3 (4.6-6.2); White Blood Count 6.2 K/mm3 (4.4-11.0)
[2021-08-18 13:35] LABS: Differential Indicated SCAN CRITERIA MET
[2021-08-18 13:41] LABS: Prothrombin Time (Protime)PT. 41.2 SECONDS (11.7-14.9)
[2021-08-18 13:46] LABS: International Normalized Ratio 4.4
[2021-08-18 13:48] LABS: Anion Gap 8 (5-15); BUN 49 mg/dL (7-18); BUN/Creat Ratio 18.6 RATIO (10-20); Calcium,Total 9.7 mg/dL (8.5-10.1); Chloride 111 mmol/L (98-107); Creatinine, Serum 2.63 mg/dL (0.70-1.30); EST Glomerular Filtration Rate 26 mL/min (>60); Est Glom Filt Rate - Afr Amer 31 mL/min (>60); Estimated Creatinine Clearance 23.74 ml/min; Glucose 107 mg/dL (74-106); Potassium 4.3 mmol/L (3.5-5.1); Sodium Level 145 mmol/L (136-145); Troponin-I HS 51 pg/mL (3.0-78.0)
[2021-08-18 13:56] LABS: Anisocytosis 2+; Differential Comment SCANNED; Macrocytosis 1+; Microcytosis 1+
[2021-08-18] MEDS: Ceftriaxone 1 GM/50 ML BAG IV (15:14)
--- NOTE | 2021-08-18 15:21 | HP.PCM.HOS_ITS ---
HPI - General General Date of Admission: 08/18/21 Date of Service: 08/18/21 Chief Complaint: Confusion, altered mental status - 4 days HPI Narrative CHRISTIAN RICHMOND, is a 71 M who presents with confusion ongoing for about 4 days. Patient is usually alert oriented x3. He was noted to be gradually confused over the past 4 days. There has been no fevers or chills or change in his medication. Patient has been vaccinated against COVID-19 pneumonia. Patient was seen to be gradually fatigued with worsening confusion. Patient has had episodes of worsening cough especially with eating. Patient was seen in his primary care doctor's office, UA was unremarkable. He was sent to the emergency room. [facility] Medical History Abnormal results of thyroid function studies Anemia Atrial flutter Bacterial endocarditis Benign essential hypertension Biventricular cardiac pacemaker in situ (~05/26/16) CAD (coronary artery disease) Cardiomyopathy in disease classified elsewhere 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, stage III (moderate) COVID-19 Diffuse large b-cell lymphoma, extranodal and solid organ sites GI bleed GI bleed Gout History of DVT (deep vein thrombosis) History of pacemaker Hypothyroidism (acquired) Infectious endocarditis MRSA (methicillin resistant Staphylococcus aureus) infection Non-rheumatic mitral regurgitation Non-rheumatic mitral valve stenosis Non-ST elevation (NSTEMI) myocardial infarction MIA (obstructive sleep apnea) Paroxysmal ventricular tachycardia Pure hypercholesterolemia Rheumatic aortic stenosis Rheumatic mitral insufficiency TIA (transient ischemic attack) (~11/19/15) Home Medications multivitamin with folic acid 2 tab PO DAILY 06/06/16 [History Last Taken 08/17/21] allopurinol 100 mg PO DINNER 08/29/17 [History Last Taken 08/17/21] calcitriol 0.25 mg PO DINNER 08/29/17 [History Last Taken 08/17/21] doxycycline hyclate 100 mg capsule 100 mg PO BID #180 cap 01/18/18 [Rx Last Taken 08/18/21] ferrous sulfate 325 mg (65 mg iron) tablet 65 mg PO DINNER tab 11/21/18 [History Last Taken 08/17/21] cyclobenzaprine 10 mg PO QHS 12/31/18 [History Last Taken 08/17/21] furosemide 20 mg tablet 20 mg PO DAILY #90 tab 01/27/21 [Rx Last Taken 08/18/21] sodium bicarbonate 650 mg tablet 650 mg PO BID tablet 03/01/21 [History Last Taken 08/18/21] levothyroxine 75 mcg tablet 75 mcg PO DAILY #90 tab 04/14/21 [Rx Last Taken 08/18/21] isosorbide mononitrate 30 mg tablet,extended release 24 hr 30 mg PO DAILY #90 tab 04/25/21 [Rx Last Taken 08/18/21] carvedilol 3.125 mg PO BID 05/19/21 [History Last Taken 08/18/21] tamsulosin 0.4 mg PO DINNER 05/19/21 [History Last Taken 08/17/21] warfarin 6 mg PO DINNER 06/28/21 [History Last Taken 08/17/21] pantoprazole 40 mg tablet,delayed release 40 tablet PO DAILY 08/02/21 [History Last Taken 08/18/21] Allergy/AdvReac Type Severity Reaction Status Date / Time No Known Allergies Allergy Verified 08/18/21 12:41 Family History Father CAD (coronary artery disease) CABG Brother CAD (coronary artery disease) CABG Mother Diabetes Sister Breast cancer Diabetes Sister Cancer breast Diabetes Surgical History dual chamber pacemaker implantation (~10/2010) History of aortic valve replacement (~08/2003) History of appendectomy History of atrioventricular chiquita ablation History of cholecystectomy History of evacuation of hematoma History of mechanical aortic valve replacement (~1986) History of mitral valve repair (~08/2003) Social History household members: spouse housing: house Smoking Status: Never smoker alcohol intake: never substance use type: does not use caffeine: No what type of physical activity do you participate in: weight training and other details: Nustep frequency: 3-4 times per week duration: 45-60 minutes/day seatbelt use: always do you feel safe at home: Yes ROS Review of Systems ROS Unobtainable: due to encephalopathy Vital Signs Vital Signs Vital Signs: 08/18/21 12:38 08/18/21 13:12 09/30/21 15:15 Temperature 98.0 F Temperature Source Temporal Pulse Rate 73 70 73 Respiratory Rate 36 H 24 H 26 H Blood Pressure 163/61 H 151/55 H 146/53 H Blood Pressure Mean 95 87 84 Pulse Ox 99 98 98 Oxygen Delivery Method Room Air Room Air Nasal Cannula Oxygen Flow Rate (L/min) 2 Weight Weight: 86.183 kg Body Mass Index (BMI) 29.7 Physical Exam Narrative Physical exam: General: Alert, Oriented to self, cooperative, no apparent distress, well develope, on 2L oxygen HEENT: Atraumatic Oral: Moist Mucosa Neck: Supple Lungs: Diminished to auscultation Cardiovascular: HS I+II, regular, no murmurs Abdomen: Bowel Sounds Present, Soft, Non Tender Extremities: Bilateral leg edema +1 Results Lab / Micro Data Result Diagrams: 08/18/21 13:20 08/18/21 13:20 Labs: Laboratory Results - last 24 hr 08/18/21 13:20: WBC 6.2, RBC 3.69 L, Hgb 12.1 L, Hct 38.3 L, MCV 103.8 H, MCH 32.8 H, MCHC 31.6 L, RDW Std Deviation 71.3 H, RDW Coeff of Jennifer 18.7 H, Plt Count 86 L, MPV 12.5 H, Immature Gran % (Auto) 0.200, Neut % (Auto) 65.0, Lymph % (Auto) 19.5, [place] % (Auto) 11.9 H, Eos % (Auto) 2.4, Baso % (Auto) 1.0, Absolute Neuts (auto) 4.0, Absolute Lymphs (auto) 1.20, Nucleated RBC % 0, Differential Comment SCANNED, Anisocytosis 2+, Microcytosis 1+, Macrocytosis 1+ 08/18/21 13:20: PT 41.2 H, INR 4.4 H* 08/18/21 13:20: Sodium 145, Potassium 4.3, Chloride 111 H, Carbon Dioxide 26.0, Anion Gap 8, BUN 49 H, Creatinine 2.63 H, Estim Creat Clear Calc 23.74, Est GFR (MDRD) Af Amer 31 L, Est GFR (MDRD) Non-Af 26 L, BUN/Creatinine Ratio 18.6, Glucose 107 H, Calcium 9.7, Troponin I High Sens 51 Micro: Microbiology 08/18/21 13:23 Nasal Secretion SARS-CoV-2 Antigen (Rapid) - Final Radiology Impression Brain CT 08/18/21 13:06 IMPRESSION: Chronic involutional changes of the brain. Electronically Signed: Donte Álvarez MD at 14:05 EDT , Service support , Chest X-Ray 08/18/21 13:06 IMPRESSION: Right lower lobe infiltrate. Cardiomegaly. Electronically Signed: Donte Álvarez MD at 13:50 EDT , Service support , Assessment & Plan Assessment/Plan (1) Acute metabolic encephalopathy: (2) Supratherapeutic INR: (3) Hypoxemia: (4) History of aortic valve replacement: PLAN: 1. Acute metabolic encephalopathy secondary to community-acquired pneumonia Patient is currently alert oriented x1, he is usually alert and oriented x3 CT of the brain showed chronic involutional changes. We will continue with pneumonia treatment Ammonia level is pending Repeat UA 2. Acute hypoxic respiratory failure secondary to acute right lower lobe community-acquired pneumonia, Suspect aspiration pneumonia Patient is currently on 2 L of oxygen Chest x-ray showed right lower lobe pneumonia Patient's gives history of intermittent coughing Started on IV ceftriaxone azithromycin Will switched to IV Unasyn and azithromycin to cover anaerobes Urine Legionella and streptococcal antigen, sputum culture Pulmonology consult per Family request 3. Supratherapeutic INR, INR is 4.4 Would hold Coumadin tonight, will repeat INR in a.m. 4. CKD stage IIIb, creatinine is at baseline. Creatinine today is 2.63 Repeat blood work in a.m. 5. History of aortic valve replacement/hypothyroidism Continue on levothyroxine, hold Coumadin for tonight, repeat INR in a.m. 6. Anemia, macrocytic,history of GI bleed, continue on oral iron, PPI Check TSH, folic acid, vitamin B12 I discussed and explained in details the various types of CODE STATUS-full code, DNR CCA, DNR CC. Patient's stated that patient is a full code. Time spent discussing CODE STATUS 17 minutes Charges/Coding Visit Charges Inpatient E&M: 19962 Init Hosp L3 Procedures Hospitalists Procedures: 06094 Advncd Care Plan 30 Min
[2021-08-18 15:34] LABS: Lactic Acid 1.6 mmol/L (0.4-1.9)
--- NOTE | 2021-08-18 16:24 | PCS.PANDOC ---
PANDEMIC DOCUMENTATION INITIATED: Date: 07/04/2021 Time: 190
[2021-08-18] MEDS: 0.9% Normal Saline 1,000 ML 75 ML IV (17:18)
[2021-08-18] MEDS: Allopurinol 100 MG Tablet PO (17:38)
[2021-08-18] MEDS: Ferrous Sulfate 325 MG Tablet PO (17:38)
[2021-08-18] MEDS: Calcitriol 0.25 MCG Capsule PO (17:38)
[2021-08-18] MEDS: Tamsulosin HCl 0.4 MG Capsule PO (17:38)
[2021-08-18] MEDS: Ipratropium/Albuterol Sulfate 3 ML AMPUL.NEB INHALATION ×2 (18:51→23:00)
[2021-08-18 19:53] LABS: Thyroid Stim Hormone (TSH) 3.37 uIU/mL (0.358-3.74)
--- NOTE | 2021-08-18 19:53 | CPS ---
Patient's home CPAP setup at bedside. CPAP 11 for pressure with a ramp feature. Patient does not know if he uses O2 will machine at night. Patient will be tried without oxygen into machine till determined if a need for oxygen is present. PRODUCT DEVELOPMENT ASSISTANT will monitor patient overnight.
[2021-08-18] MEDS: 0.9% Saline Lock 10 ML Syringe IV (21:38)
[2021-08-18] MEDS: guaiFENesin 1,200 MG Tablet 1200 MG PO (21:39)
[2021-08-18] MEDS: Lactulose 20 GM/30 ML UDC PO (21:39)
[2021-08-18] MEDS: Sodium Bicarbonate 650 MG Tablet PO (21:39)
[2021-08-18] MEDS: Carvedilol 3.125 MG TABLET PO (21:39)
[2021-08-19] VITALS (12 sets, daily range): BP systolic 115–148; BP diastolic 58–61; PULSE 70–78; RESP 14–24; TEMP 36.4–36.8; O2SAT 96–100
[2021-08-19] MEDS: LORazepam 0.5 MG Tablet PO (04:37)
[2021-08-19] MEDS: Levothyroxine 75 MCG Tablet PO (04:37)
[2021-08-19] MEDS: Albuterol 2.5 MG/3 ML VIAL.NEB. INHALATION (04:42)
[2021-08-19] MEDS: 0.9% Normal Saline 1,000 ML 75 ML IV (06:39)
[2021-08-19] MEDS: Ipratropium/Albuterol Sulfate 3 ML AMPUL.NEB INHALATION ×2 (07:27→18:53)
[2021-08-19 07:36] LABS: Absolute Lymphocyte Count 1.09 X10^3/uL (0.83-4.51); Absolute Neutrophil Count 3.5 X10^3/uL (2.0-7.7); Basophil# 0.05 X10^3/uL; Basophil% 0.9 % (0-1); Eosinophil# 0.28 X10^3/uL; Hematocrit 36.5 % (40-54); Hemoglobin 11.3 g/dL (13.0-16.5); Lymphocyte # 1.09 X10^3/ul (0.83-4.51); Lymphocyte % 19.5 % (19-41); Mean Corpuscular Hgb 32.7 pg (27.0-32.0); Mean Corpuscular Volume 105.5 fL (80-94); Mean Platelet Vol. 12.6 fl (6.2-12.0); Monocyte# 0.63 X10^3/uL; Monocyte% 11.3 % (0-10); NRBC Flagged by Analyzer 0 % (0-5); Neutrophil # 3.54 X10^3/uL (2.7-7.7); Neutrophil % 63.1 % (47-70); POSITIVE COUNT YES; POSITIVE MORPHOLOGY YES; Platelet Count 76 K/mm3 (150-450); RBC Distribution Width CV 18.8 % (11.6-14.6); RBC Distribution Width SD 72.9 fl (35.1-43.9); Red Blood Count 3.46 M/mm3 (4.6-6.2); White Blood Count 5.6 K/mm3 (4.4-11.0)
[2021-08-19 07:39] LABS: Differential Indicated SCAN CRITERIA MET
--- NOTE | 2021-08-19 07:53 | PCM.PN.HOSP ---
Objective Data Objective Data Vital Signs: Vital Signs Temp Pulse Resp BP Pulse Ox 97.6 F L 72 21 H 141/61 H 96 08/19/21 03:31 08/19/21 07:47 08/19/21 07:28 08/19/21 03:31 08/19/21 07:28 Oxygen Flow Rate (L/min) 2 Oxygen Delivery Method Nasal Cannula Weight: 183 lb 6.793 oz Body Mass Index (BMI) 28.7 Intake & Output: Intake and Output for Last 24 Hours 08/17/21 08/18/21 08/19/21 23:59 23:59 23:59 Intake Total 517 / 517 1240 / 1240 Balance 517 / 517 1240 / 1240 Lab / Micro Data Result Diagrams: 08/19/21 06:20 08/18/21 13:20 Labs: Laboratory Results - last 24 hr 08/18/21 13:20: WBC 6.2, RBC 3.69 L, Hgb 12.1 L, Hct 38.3 L, MCV 103.8 H, MCH 32.8 H, MCHC 31.6 L, RDW Std Deviation 71.3 H, RDW Coeff of Jennifer 18.7 H, Plt Count 86 L, MPV 12.5 H, Immature Gran % (Auto) 0.200, Neut % (Auto) 65.0, Lymph % (Auto) 19.5, [place] % (Auto) 11.9 H, Eos % (Auto) 2.4, Baso % (Auto) 1.0, Absolute Neuts (auto) 4.0, Absolute Lymphs (auto) 1.20, Nucleated RBC % 0, Differential Comment SCANNED, Anisocytosis 2+, Microcytosis 1+, Macrocytosis 1+ 08/18/21 13:20: PT 41.2 H, INR 4.4 H* 08/18/21 13:20: Sodium 145, Potassium 4.3, Chloride 111 H, Carbon Dioxide 26.0, Anion Gap 8, BUN 49 H, Creatinine 2.63 H, Estim Creat Clear Calc 23.74, Est GFR (MDRD) Af Amer 31 L, Est GFR (MDRD) Non-Af 26 L, BUN/Creatinine Ratio 18.6, Glucose 107 H, Calcium 9.7, Troponin I High Sens 51 08/18/21 13:20: Folate 49.30, TSH 3.37 08/18/21 15:05: Lactic Acid 1.6 08/18/21 15:45: Ammonia 56.0 H 08/19/21 06:20: WBC 5.6, RBC 3.46 L, Hgb 11.3 L, Hct 36.5 L, MCV 105.5 H, MCH 32.7 H, MCHC 31.0 L, RDW Std Deviation 72.9 H, RDW Coeff of Jennifer 18.8 H, Plt Count 76 L, MPV 12.6 H, Immature Gran % (Auto) 0.200, Neut % (Auto) 63.1, Lymph % (Auto) 19.5, [place] % (Auto) 11.3 H, Eos % (Auto) 5.0, Baso % (Auto) 0.9, Absolute Neuts (auto) 3.5, Absolute Lymphs (auto) 1.09, Nucleated RBC % 0 Micro: Microbiology 08/18/21 18:51 Mucosa - Nasopharyngeal Respiratory Panel (PCR) - Final 08/18/21 17:15 Urine, Clean Catch Legionella Antigen - Final 08/18/21 17:15 Urine, Clean Catch Streptococcus pneumoniae Antigen (M - Final 08/18/21 13:23 Nasal Secretion SARS-CoV-2 Antigen (Rapid) - Final Radiography Diagnostic Testing: Radiology Impression Brain CT 08/18/21 13:06 IMPRESSION: Chronic involutional changes of the brain. Electronically Signed: Donte Álvarez MD at 14:05 EDT , Service support , Chest X-Ray 08/18/21 13:06 IMPRESSION: Right lower lobe infiltrate. Cardiomegaly. Electronically Signed: Donte Álvarez MD at 13:50 EDT , Service support , Assessment & Plan Assessment/Plan (1) Acute metabolic encephalopathy: PLAN: 1. Acute metabolic encephalopathy secondary to community-acquired pneumonia Patient is currently alert oriented x1, he is usually alert and oriented x3 CT of the brain showed chronic involutional changes. We will continue with pneumonia treatment Ammonia level is56 Repeat UA 2. Acute hypoxic respiratory failure secondary to acute right lower lobe community-acquired pneumonia, Suspect aspiration pneumonia Patient is currently on 2 L of oxygen Chest x-ray showed right lower lobe pneumonia Patient's gives history of intermittent coughing Started on IV ceftriaxone azithromycin Will switched to IV Unasyn and azithromycin to cover anaerobes Urine Legionella and streptococcal antigen, sputum culture Pulmonology consult per Family request 3. Supratherapeutic INR, INR is 4.4 Would hold Coumadin tonight, will repeat INR in a.m. 4. CKD stage IIIb, creatinine is at baseline. Creatinine today is 2.63 Repeat blood work in a.m. 5. History of aortic valve replacement/hypothyroidism Continue on levothyroxine, hold Coumadin for tonight, repeat INR in a.m. 6. Anemia, macrocytic,history of GI bleed, continue on oral iron, PPI Check TSH, folic acid, vitamin B12
[2021-08-19 08:03] LABS: ALB/GLOB Ratio 0.8 RATIO (0.9-2.4); AST(SGOT) 35 U/L (15-37); Alanine Aminotransfer ALT/SGPT 19 U/L (16-61); Alkaline Phosphatase 252 U/L (45-117); Anion Gap 9 (5-15); BUN 50 mg/dL (7-18); BUN/Creat Ratio 19.5 RATIO (10-20); Calcium,Total 9.2 mg/dL (8.5-10.1); Chloride 111 mmol/L (98-107); Creatinine, Serum 2.57 mg/dL (0.70-1.30); EST Glomerular Filtration Rate 26 mL/min (>60); Est Glom Filt Rate - Afr Amer 32 mL/min (>60); Estimated Creatinine Clearance 24.29 ml/min; Glucose 90 mg/dL (74-106); Potassium 4.1 mmol/L (3.5-5.1); Sodium Level 144 mmol/L (136-145)
[2021-08-19 08:10] LABS: International Normalized Ratio 4.4; Prothrombin Time (Protime)PT. 41.4 SECONDS (11.7-14.9)
[2021-08-19 08:25] LABS: Platelet Estimate MOD DEC (ADEQ)
[2021-08-19 09:54] LABS: White Blood Cells 0 SEEN /hpf (0-5)
[2021-08-19 09:55] LABS: Color, Urine Yellow (Yellow); Glucose, Dipstick Normal (Normal); Ketone-Dipstick Negative (Negative); Leukocyte Esterase-Dipstick Negative /ul (Negative); Nitrite-Dipstick Negative (Negative); Occult Blood-Urine 10 /ul (Negative); Protein-Dipstick 15 mg/dl (Negative); Specific Gravity, Urine 1.015 (1.002-1.030); Urine Bilirubin Dipstick Negative (Negative); Urine Clarity Clear (Clear); Urine Urobilinogen Normal (Normal)
[2021-08-19 09:56] LABS: Vitamin B12 1930 pg/mL (211-911)
[2021-08-19 10:01] LABS: Bacteria RARE /hpf (None Seen); Mucous, Urine RARE /hpf (<or=2+); Red Blood Cells-Urine 0-5 SEEN /hpf (0-5); Squamous Epithelial Cells - UA 0-5 SEEN /hpf (0-5)
[2021-08-19] MEDS: Isosorbide Mononitrate 30 MG Tablet PO (11:16)
[2021-08-19] MEDS: Pantoprazole Sodium 40 MG Tablet PO (11:16)
[2021-08-19] MEDS: Furosemide 20 MG Tablet PO (11:16)
--- NOTE | 2021-08-19 12:12 | CASEMGMT ---
GIO HEARN assessment: Face to Face with patient for initial transition planning/care coordination assessment. GIO HEARN introduced self and role at [facility], pt/ voice understanding and consent to assessment. Pt is sitting up in chair in no distress on 2L nc. Pt is A/Ox4 and answers all questions appropriately but assists at times. Pt's is at bedside during assessment. Care providers, pharmacy, and demographics verified. Presentation: Pt w/ increased confusion for 3 days s/p fall 3 weeks ago Admitting dx: AMS, CAP PCP: Demetrio Specialists: Pako, pulm; Mitchel, cardio; Kvng, nephro; Leydi, neuro; Emily, liver in [place] Preferred Pharmacy: [facility] Insurance: [facility] A/B, AARP Prescription Benefit: [facility]-M[facility] D Living Will/HPOA: Pt has LW/HPOA and is aware that they are on file at [facility]. Pt states his , Bre Amador, is HPOA. LNOK: Bre Amador, Living Arrangements: Pt states lives with in 1 townhouse with 3-5 steps in and states no concerns at home. Pt states is independent with ADL's. Transportation: Pt drives self or drives and states no transportation concerns. DME/HHC: Pt has the following DME: cane, crutches, raised toilet seat, grab bars/rails, shower bench, adjust bed, and cpap thru [facility]. states no need for any further DME but green sheet on chart, if pt qualifies for home oxygen at discharge. states pt has been to [facility] and has had HHC in past. declines need for HHC at discharge. Pt/ state no concerns with going home at time of discharge. Pt is retired. Pt does not smoke cigarettes or drink ETOH. Pt/ state no further concerns/needs. CM to follow for any further discharge planning/needs. Advised pt to ask for CM if any further questions/concerns/needs arise, voices understanding. Pt Goal: [place] GIO HEARN
--- NOTE | 2021-08-19 12:50 | PCM.PN.HOSP ---
Documented by User: Esa KEMP 08/19/21 13:05 Subjective Subjective Patient is a 71-year-old male comfortably resting in a chair and eating breakfast. Patient cannot provide much insight into his current condition as he is acutely confused. Patients informs provider that the patient has limited response to questions asked and is able to feed himself independently, which is an improvement from prior to admission. Patient is still not back to baseline, according to . Objective Data Objective Data Vital Signs: Vital Signs Temp Pulse Resp BP Pulse Ox 97.6 F L 70 16 145/58 H 100 08/19/21 09:22 08/19/21 09:22 08/19/21 09:22 08/19/21 09:22 08/19/21 09:22 Oxygen Flow Rate (L/min) 3 Oxygen Delivery Method Nasal Cannula Weight: 185 lb 3.013 oz Body Mass Index (BMI) 28.7 Intake & Output: Intake and Output for Last 24 Hours 08/17/21 08/18/21 08/19/21 23:59 23:59 23:59 Intake Total 517 / 517 1669.5 / 1669.5 Balance 517 / 517 1669.5 / 1669.5 Lab / Micro Data Result Diagrams: 08/19/21 06:20 08/19/21 06:20 Labs: Laboratory Results - last 24 hr 08/18/21 13:20: WBC 6.2, RBC 3.69 L, Hgb 12.1 L, Hct 38.3 L, MCV 103.8 H, MCH 32.8 H, MCHC 31.6 L, RDW Std Deviation 71.3 H, RDW Coeff of Jennifer 18.7 H, Plt Count 86 L, MPV 12.5 H, Immature Gran % (Auto) 0.200, Neut % (Auto) 65.0, Lymph % (Auto) 19.5, [place] % (Auto) 11.9 H, Eos % (Auto) 2.4, Baso % (Auto) 1.0, Absolute Neuts (auto) 4.0, Absolute Lymphs (auto) 1.20, Nucleated RBC % 0, Differential Comment SCANNED, Anisocytosis 2+, Microcytosis 1+, Macrocytosis 1+ 08/18/21 13:20: PT 41.2 H, INR 4.4 H* 08/18/21 13:20: Sodium 145, Potassium 4.3, Chloride 111 H, Carbon Dioxide 26.0, Anion Gap 8, BUN 49 H, Creatinine 2.63 H, Estim Creat Clear Calc 23.74, Est GFR (MDRD) Af Amer 31 L, Est GFR (MDRD) Non-Af 26 L, BUN/Creatinine Ratio 18.6, Glucose 107 H, Calcium 9.7, Troponin I High Sens 51 08/18/21 13:20: Folate 49.30, TSH 3.37 08/18/21 15:05: Lactic Acid 1.6 08/18/21 15:45: Ammonia 56.0 H 08/18/21 17:15: Urine Color Yellow, Urine Clarity Clear, Urine pH 5.0, Ur Specific [place] 1.015, Urine Protein 15 H, Urine Glucose (UA) Normal, Urine Ketones Negative, Urine Occult Blood 10 H, Urine Nitrite Negative, Urine Bilirubin Negative, Urine Urobilinogen Normal, Ur Leukocyte Esterase Negative, Urine RBC 0-5 SEEN, Urine WBC 0 SEEN, Ur Squamous Epith Cells 0-5 SEEN, Urine Bacteria RARE, Urine Mucus RARE 08/19/21 06:20: WBC 5.6, RBC 3.46 L, Hgb 11.3 L, Hct 36.5 L, MCV 105.5 H, MCH 32.7 H, MCHC 31.0 L, RDW Std Deviation 72.9 H, RDW Coeff of Jennifer 18.8 H, Plt Count 76 L, MPV 12.6 H, Immature Gran % (Auto) 0.200, Neut % (Auto) 63.1, Lymph % (Auto) 19.5, [place] % (Auto) 11.3 H, Eos % (Auto) 5.0, Baso % (Auto) 0.9, Absolute Neuts (auto) 3.5, Absolute Lymphs (auto) 1.09, Nucleated RBC % 0, Platelet Estimate MOD DEC 08/19/21 06:20: Sodium 144, Potassium 4.1, Chloride 111 H, Carbon Dioxide 24.0, Anion Gap 9, BUN 50 H, Creatinine 2.57 H, Estim Creat Clear Calc 24.29, Est GFR (MDRD) Af Amer 32 L, Est GFR (MDRD) Non-Af 26 L, BUN/Creatinine Ratio 19.5, Glucose 90, Calcium 9.2, Total Bilirubin 2.40 H, AST 35, ALT 19, Alkaline Phosphatase 252 H, Total Protein 7.0, Albumin 3.0 L, Globulin 4.0, Albumin/Globulin Ratio 0.8 L 08/19/21 06:20: PT 41.4 H, INR 4.4 H* 08/19/21 06:20: Vitamin B12 1930 H Micro: Microbiology 08/18/21 18:51 Mucosa - Nasopharyngeal Respiratory Panel (PCR) - Final 08/18/21 17:15 Urine, Clean Catch Legionella Antigen - Final 08/18/21 17:15 Urine, Clean Catch Streptococcus pneumoniae Antigen (M - Final 08/18/21 13:23 Nasal Secretion SARS-CoV-2 Antigen (Rapid) - Final Radiography Diagnostic Testing: Radiology Impression Brain CT 08/18/21 13:06 IMPRESSION: Chronic involutional changes of the brain. Electronically Signed: Donte Álvarez MD at 14:05 EDT , Service support , Chest X-Ray 08/18/21 13:06 IMPRESSION: Right lower lobe infiltrate. Cardiomegaly. Electronically Signed: Donte Álvarez MD at 13:50 EDT , Service support , Physical Exam Const alert and no apparent distress Orientation / Consciousness: confused HEENT head/scalp atraumatic, moist oral mucous membranes and oropharynx normal Head and Scalp: normocephalic Eyes PERRL, EOMs intact bilaterally and conjunctivae normal Neck no lymphadenopathy, supple and no JVD Resp normal respiratory effort, no retractions, no use of accessory muscles and clear to auscultation bilaterally Cardio regular rate, regular rhythm, no murmurs and no JVD GI normal to inspection, nondistended, normoactive bowel sounds, soft to palpation and non-tender Extremity normal to inspection, full ROM and no clubbing, cyanosis or edema Skin no rashes or lesions noted, no wounds and skin turgor normal Neuro CN's II-XII intact bilaterally Psych affect normal Assessment & Plan Assessment/Plan (1) Acute metabolic encephalopathy: (2) Pneumonia: (3) Supratherapeutic INR: (4) Hypoxemia: PLAN: Day 1 Discharge planning: Current plan is for patient to discharge home, case management following. 1) acute metabolic encephalopathy secondary to community-acquired pneumonia Patient is currently alert and oriented to self and has limited response to questions asked, patient is also able to independently feed himself. Patients reports that this is improvement from the past couple days, although patient is still not back at baseline where he is usually alert and oriented x3. CT did not demonstrate any acute change and only showed chronic involutional changes of the brain. Ammonia level elevated, lactulose was given. UA unremarkable. Plan; as below, continue lactulose 20 mg p.o. twice daily. 2) acute hypoxic respiratory failure secondary to right lower lobe community-acquired pneumonia. Currently satting 100 percent on 2 L via nasal cannula, was hypoxic on admission. Legionella and strep pneumo urine antigens negative. Viral respiratory panel negative. Rapid Covid is negative. Blood cultures pending. Plan; continue Unasyn and azithromycin, pulmonology consult ordered per family, continue guaifenesin, continue DuoNebs and albuterol, 3) supratherapeutic INR Currently 4.4. Continue to hold Coumadin, repeat INR in a.m. 4) CKD stage IIIb Creatinine currently 2.5, which is patient's baseline. Continue to trend BMP. 5) hypothyroidism Continue Synthroid. 6) GERD Continue PPI. 7) BPH Continue Flomax. 8) atrial flutter Continue Coreg. 9) HTN Continue Coreg, Lasix and isosorbide. DVT prophylaxis - not indicated due to #3. Patient seen by Esa Conway PA-C, under the supervision of Dr. Chowdhury. Documented by User: Dr. Siddharth Chowdhury MD 08/19/21 16:45 Subjective Subjective Seen and examined. Patient is more awake and alert, very evident and corroborated it. Patient still seems difficulty in understanding complex conversation regarding disease. Patient has history of aortic valve replacement, NHL/diffuse large B-cell lymphoma. Lactic acid normal. INR 4.4. BUN/creatinine elevated. Ammonia elevated on lactulose. Objective Data Lab / Micro Data Result Diagrams: 08/19/21 06:20 08/19/21 06:20 Physical Exam Narrative General: Awake, oriented x3, cooperative HEENT: Atraumatic, PERRLA, EOMI, Normocephalic Oral: No Gingival or Mucosal Lesions/ Ulcerations Neck: Supple, No JVD, Negative Carotid Bruits Lungs: Air entry diminished in bilateral lung bases. Right basilar crepitation present. Cardiovascular: Aortic valve click present. Systolic murmur. Regular rhythm, right subclavicular pacemaker Abdomen: Bowel Sounds Present, Soft, Non Tender, Non-Distended : No renal angle tenderness. No suprapubic tenderness. Extremities: No edema, Capillary Refill Less than 3 Seconds Skin: No rashes, No breakdown Musculoskeletal: No Tenderness to Palpation of Joints or Extremities Neurological: Cranial nerves II-XII grossly intact, DTR 2+/4 and Symmetrical, Neuro grossly intact Psych/Mental Status: Flat affect. Assessment & Plan Assessment/Plan (1) Acute metabolic encephalopathy: PLAN: This patient was seen in conjunction with VIRIDIANA Herr. I have independently interviewed and examined the patient and reviewed pertinent history, examination findings, laboratory and plan of management. I have reviewed the note and agree with the documented findings with the few additional points. In brief, patient is admitted with acute metabolic encephalopathy probably due to community-acquired pneumonia and metabolic encephalopathy. Patient is more awake and alert. Ammonia level elevated on lactulose. Patient also with acute hypoxic respiratory failure secondary to right lower lobe pneumonia. On Unasyn. Discontinue azithromycin. Atrial fibrillation, history of aortic valve replacement due to endocarditis from [facility] on Coumadin. Coumadin on hold. Patient is hyperbilirubinemia, total bili 2.4, alkaline phos 252. ALT and AST are normal. Total bilirubin elevated but has been so since December 09. Cholestatic pattern on liver chemistry. 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 CKD stage IIIb Other comorbidities as mentioned above I have discussed my assessment with VIRIDIANA Herr and orders have been reviewed. Charges/Coding Visit Charges Inpatient E&M: 78136 Subs Hosp L2
[2021-08-19] MEDS: Carvedilol 3.125 MG TABLET PO ×2 (13:09→21:37)
[2021-08-19] MEDS: Sodium Bicarbonate 650 MG Tablet PO ×2 (13:09→21:37)
[2021-08-19] MEDS: guaiFENesin 1,200 MG Tablet 1200 MG PO ×2 (13:09→21:37)
[2021-08-19] MEDS: Lactulose 20 GM/30 ML UDC PO ×2 (13:09→21:37)
--- NOTE | 2021-08-19 13:13 | EX.PCM.CONCC ---
Assessment & Plan Assessment/Plan (1) Acute metabolic encephalopathy: (2) History of aortic valve replacement: (3) 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, stage III (moderate): PLAN: RECOMMENDATIONS: 1. Okay to continue Unasyn. Unclear utility of azithromycin 2. Wean oxygen as tolerated 3. Hold Coumadin. Daily INRs 4. Consider initiation of lactulose 5. Delirium protocol 6. Speech therapy evaluation IMPRESSIONS: 1. Acute metabolic encephalopathy Unclear etiology. Patient does appear to have a right lower lobe infiltrate with a history suggestive of intermittent aspiration. Speech therapy would be an appropriate evaluation. Agree with transitioning of antibiotics from ceftriaxone to Unasyn. Patient does not have findings consistent with atypical pneumonia, so azithromycin may not be of much utility. Patient does have an elevated ammonia with a history of [place]. Given his encephalopathy, initiation of lactulose may be appropriate. Patient would be at higher risk for delirium given advanced age chronic kidney disease and baseline hearing and slight loss. Low clinical suspicion for community-acquired pneumonia, but aspiration is very possible. Continue duo nebs, guaifenesin and pulmonary toileting techniques. 2. Acute hypoxic respiratory insufficiency/MIA Patient's previous pulmonary function test and walking oximetry were benign. Patient does have some mild restriction, but not enough to lead to desaturation. Patient would be at risk for central sleep apnea given cardiac history, but recently lost 50 pounds, so obstructive sleep apnea may have been resolved. Patient will need a walking oximetry prior to discharge. Bronchodilators are not unreasonable, but likely will not have significant improvement in respiratory status. 3. CKD stage IIIb/AKIAK/hypothyroidism/GERD/BPH/hypertension/MADRID Complicates care, management, recovery and prognosis. Okay to continue with baseline medications from my perspective. HPI Consult Data Date of Consult: 08/19/21 HPI Narrative HPI Narrative: CHRISTIAN RICHMOND is a 71 M, with past medical history listed below and known to me from previous encounters, who presents to [facility] on 08[facility]18[facility]21 secondary to worsening confusion, cough and shortness of breath. Patient reportedly fell 3 weeks ago playing a kite outside and lost his balance. Patient is on Coumadin therapy secondary to a mechanical heart valve. In the ER, patient was afebrile, but tachypneic at 36 breaths/min. Patient was slightly hypertensive at 163/61, but saturating well on room air. ER staff had noted some Etienne-Osorio type respirations. Laboratory work-up showed a white blood cell count of 6.2, hemoglobin 12.1 and platelets of 86. Patient's INR was elevated at 4.4 and creatinine was 2.63 with a BUN of 49. CT of the head showed only chronic involutional changes and chest x-ray showed a right lower lobe infiltrate with cardiomegaly. Covid testing was negative. Given confusion, was elected to admit the patient for observation. Patient's reports that he started to get confused about 3 or 4 days ago. Patient states that he feels he is at his baseline at this time. Patient is not reporting any pain. Patient is hard of hearing and has poor memory, so he was not able to provide much additional information. Patient's reports that she had noted the confusion about 3 or 4 days ago. Patient reportedly has a history of coughing with eating, especially with dinner. Patient will have fits of coughing to the point that there is almost posttussive emesis. is not aware of any recent fevers or change in sputum. Patient does wear KAREN hose on a routine basis, but has not noticed increased lower extremity edema recently. No GI bleeding has been reported. Review of systems otherwise negative from a constitutional, HEENT, respiratory, cardiovascular, GI, genitourinary, musculoskeletal, skin, neurologic, psychiatric and hematologic system unless stated above. [facility] Medical History Abnormal results of thyroid function studies Anemia Atrial flutter Bacterial endocarditis Benign essential hypertension Biventricular cardiac pacemaker in situ (~05/26/16) CAD (coronary artery disease) Cardiomyopathy in disease classified elsewhere 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, stage III (moderate) COVID-19 Diffuse large b-cell lymphoma, extranodal and solid organ sites GI bleed GI bleed Gout History of DVT (deep vein thrombosis) History of pacemaker Hypothyroidism (acquired) Infectious endocarditis MRSA (methicillin resistant Staphylococcus aureus) infection Non-rheumatic mitral regurgitation Non-rheumatic mitral valve stenosis Non-ST elevation (NSTEMI) myocardial infarction MIA (obstructive sleep apnea) Paroxysmal ventricular tachycardia Pure hypercholesterolemia Rheumatic aortic stenosis Rheumatic mitral insufficiency TIA (transient ischemic attack) (~11/19/15) Home Medications multivitamin with folic acid 2 tab PO DAILY 06/06/16 [History Last Taken 08/17/21] allopurinol 100 mg PO DINNER 08/29/17 [History Last Taken 08/17/21] calcitriol 0.25 mg PO DINNER 08/29/17 [History Last Taken 08/17/21] doxycycline hyclate 100 mg capsule 100 mg PO BID #180 cap 01/18/18 [Rx Last Taken 08/18/21] ferrous sulfate 325 mg (65 mg iron) tablet 65 mg PO DINNER tab 11/21/18 [History Last Taken 08/17/21] cyclobenzaprine 10 mg PO QHS 12/31/18 [History Last Taken 08/17/21] furosemide 20 mg tablet 20 mg PO DAILY #90 tab 01/27/21 [Rx Last Taken 08/18/21] sodium bicarbonate 650 mg tablet 650 mg PO BID tablet 03/01/21 [History Last Taken 08/18/21] levothyroxine 75 mcg tablet 75 mcg PO DAILY #90 tab 04/14/21 [Rx Last Taken 08/18/21] isosorbide mononitrate 30 mg tablet,extended release 24 hr 30 mg PO DAILY #90 tab 04/25/21 [Rx Last Taken 08/18/21] carvedilol 3.125 mg PO BID 05/19/21 [History Last Taken 08/18/21] tamsulosin 0.4 mg PO DINNER 05/19/21 [History Last Taken 08/17/21] warfarin 6 mg PO DINNER 06/28/21 [History Last Taken 08/17/21] pantoprazole 40 mg tablet,delayed release 40 tablet PO DAILY 08/02/21 [History Last Taken 08/18/21] Allergy/AdvReac Type Severity Reaction Status Date / Time No Known Allergies Allergy Verified 08/18/21 12:41 Family History Father CAD (coronary artery disease) CABG Brother CAD (coronary artery disease) CABG Mother Diabetes Sister Breast cancer Diabetes Sister Cancer breast Diabetes Surgical History dual chamber pacemaker implantation (~10/2010) History of aortic valve replacement (~08/2003) History of appendectomy History of atrioventricular chiquita ablation History of cholecystectomy History of evacuation of hematoma History of mechanical aortic valve replacement (~1986) History of mitral valve repair (~08/2003) Social History household members: spouse housing: house Smoking Status: Never smoker alcohol intake: never substance use type: does not use caffeine: No what type of physical activity do you participate in: weight training and other details: Nustep frequency: 3-4 times per week duration: 45-60 minutes/day seatbelt use: always do you feel safe at home: Yes ROS ROS Narrative See HPI Physical Exam Const alert and no apparent distress Orientation / Consciousness: confused HEENT head/scalp atraumatic, moist oral mucous membranes and oropharynx normal Head and Scalp: normocephalic General Ear: hearing grossly impaired bilateral (Hearing aids in place) Eyes PERRL, EOMs intact bilaterally and conjunctivae normal Neck no lymphadenopathy, supple and no JVD Resp normal respiratory effort, no retractions, no use of accessory muscles and clear to auscultation bilaterally Auscultation: Negative for rales, rhonchi or wheezes Cardio regular rate, regular rhythm, no murmurs and no JVD Cardio Narrative: Mechanical heart sound Heart Sounds: prosthetic sounds GI normal to inspection, nondistended, normoactive bowel sounds, soft to palpation and non-tender no CVA tenderness Extremity normal to inspection, full ROM and no clubbing, cyanosis or edema Skin no rashes or lesions noted, no wounds and skin turgor normal Neuro CN's II-XII intact bilaterally Psych Mood & Affect: flat affect Lab / Micro Data Result Diagrams: 08/19/21 06:20 08/19/21 06:20 Labs: Laboratory Results - last 24 hr 08/18/21 13:20: WBC 6.2, RBC 3.69 L, Hgb 12.1 L, Hct 38.3 L, MCV 103.8 H, MCH 32.8 H, MCHC 31.6 L, RDW Std Deviation 71.3 H, RDW Coeff of Jennifer 18.7 H, Plt Count 86 L, MPV 12.5 H, Immature Gran % (Auto) 0.200, Neut % (Auto) 65.0, Lymph % (Auto) 19.5, [place] % (Auto) 11.9 H, Eos % (Auto) 2.4, Baso % (Auto) 1.0, Absolute Neuts (auto) 4.0, Absolute Lymphs (auto) 1.20, Nucleated RBC % 0, Differential Comment SCANNED, Anisocytosis 2+, Microcytosis 1+, Macrocytosis 1+ 08/18/21 13:20: PT 41.2 H, INR 4.4 H* 08/18/21 13:20: Sodium 145, Potassium 4.3, Chloride 111 H, Carbon Dioxide 26.0, Anion Gap 8, BUN 49 H, Creatinine 2.63 H, Estim Creat Clear Calc 23.74, Est GFR (MDRD) Af Amer 31 L, Est GFR (MDRD) Non-Af 26 L, BUN/Creatinine Ratio 18.6, Glucose 107 H, Calcium 9.7, Troponin I High Sens 51 08/18/21 13:20: Folate 49.30, TSH 3.37 08/18/21 15:05: Lactic Acid 1.6 08/18/21 15:45: Ammonia 56.0 H 08/18/21 17:15: Urine Color Yellow, Urine Clarity Clear, Urine pH 5.0, Ur Specific [place] 1.015, Urine Protein 15 H, Urine Glucose (UA) Normal, Urine Ketones Negative, Urine Occult Blood 10 H, Urine Nitrite Negative, Urine Bilirubin Negative, Urine Urobilinogen Normal, Ur Leukocyte Esterase Negative, Urine RBC 0-5 SEEN, Urine WBC 0 SEEN, Ur Squamous Epith Cells 0-5 SEEN, Urine Bacteria RARE, Urine Mucus RARE 08/19/21 06:20: WBC 5.6, RBC 3.46 L, Hgb 11.3 L, Hct 36.5 L, MCV 105.5 H, MCH 32.7 H, MCHC 31.0 L, RDW Std Deviation 72.9 H, RDW Coeff of Jennifer 18.8 H, Plt Count 76 L, MPV 12.6 H, Immature Gran % (Auto) 0.200, Neut % (Auto) 63.1, Lymph % (Auto) 19.5, [place] % (Auto) 11.3 H, Eos % (Auto) 5.0, Baso % (Auto) 0.9, Absolute Neuts (auto) 3.5, Absolute Lymphs (auto) 1.09, Nucleated RBC % 0, Platelet Estimate MOD DEC 08/19/21 06:20: Sodium 144, Potassium 4.1, Chloride 111 H, Carbon Dioxide 24.0, Anion Gap 9, BUN 50 H, Creatinine 2.57 H, Estim Creat Clear Calc 24.29, Est GFR (MDRD) Af Amer 32 L, Est GFR (MDRD) Non-Af 26 L, BUN/Creatinine Ratio 19.5, Glucose 90, Calcium 9.2, Total Bilirubin 2.40 H, AST 35, ALT 19, Alkaline Phosphatase 252 H, Total Protein 7.0, Albumin 3.0 L, Globulin 4.0, Albumin/Globulin Ratio 0.8 L 08/19/21 06:20: PT 41.4 H, INR 4.4 H* 08/19/21 06:20: Vitamin B12 1930 H Micro: Microbiology 08/18/21 18:51 Mucosa - Nasopharyngeal Respiratory Panel (PCR) - Final 08/18/21 17:15 Urine, Clean Catch Legionella Antigen - Final 08/18/21 17:15 Urine, Clean Catch Streptococcus pneumoniae Antigen (M - Final 08/18/21 13:23 Nasal Secretion SARS-CoV-2 Antigen (Rapid) - Final Radiology Impression Brain CT 08/18/21 13:06 IMPRESSION: Chronic involutional changes of the brain. Electronically Signed: Donte Álvarez MD at 14:05 EDT , Service support , Chest X-Ray 08/18/21 13:06 IMPRESSION: Right lower lobe infiltrate. Cardiomegaly. Electronically Signed: Donte Álvarez MD at 13:50 EDT , Service support , Charges/Coding Visit Charges Inpatient E&M: 67673 Init Hosp L2
--- NOTE | 2021-08-19 15:06 | NURSING ---
Read and review SN documentation. Discussed Plan of Care with SN.
[2021-08-19] MEDS: Tamsulosin HCl 0.4 MG Capsule PO (18:08)
[2021-08-19] MEDS: Allopurinol 100 MG Tablet PO (18:09)
[2021-08-19] MEDS: Ferrous Sulfate 325 MG Tablet PO (18:09)
[2021-08-19] MEDS: Calcitriol 0.25 MCG Capsule PO (18:09)
[2021-08-19] MEDS: 0.9% Saline Lock 10 ML Syringe IV (21:37)
[2021-08-20] VITALS (8 sets, daily range): BP systolic 136–158; BP diastolic 44–63; PULSE 71–95; RESP 16–20; TEMP 36.4; O2SAT 93–96
[2021-08-20] MEDS: Levothyroxine 75 MCG Tablet PO (05:35)
[2021-08-20 05:39] LABS: Absolute Lymphocyte Count 0.93 X10^3/uL (0.83-4.51); Absolute Neutrophil Count 4.3 X10^3/uL (2.0-7.7); Basophil# 0.05 X10^3/uL; Basophil% 0.8 % (0-1); Eosinophil# 0.34 X10^3/uL; Eosinophils% 5.4 % (0-5); Hematocrit 38.8 % (40-54); Hemoglobin 12.1 g/dL (13.0-16.5); Lymphocyte # 0.93 X10^3/ul (0.83-4.51); Lymphocyte % 14.7 % (19-41); Mean Corp Hgb Conc 31.2 g/dL (32-36); Mean Corpuscular Hgb 32.9 pg (27.0-32.0); Mean Corpuscular Volume 105.4 fL (80-94); Mean Platelet Vol. 13.1 fl (6.2-12.0); Monocyte# 0.71 X10^3/uL; Monocyte% 11.2 % (0-10); NRBC Flagged by Analyzer 0 % (0-5); Neutrophil # 4.27 X10^3/uL (2.7-7.7); Neutrophil % 67.6 % (47-70); POSITIVE COUNT YES; POSITIVE MORPHOLOGY YES; Platelet Count 73 K/mm3 (150-450); RBC Distribution Width CV 18.6 % (11.6-14.6); RBC Distribution Width SD 71.7 fl (35.1-43.9); Red Blood Count 3.68 M/mm3 (4.6-6.2); White Blood Count 6.3 K/mm3 (4.4-11.0)
[2021-08-20 05:44] LABS: Differential Indicated SCAN CRITERIA MET
[2021-08-20 05:48] LABS: Prothrombin Time (Protime)PT. 43.3 SECONDS (11.7-14.9)
[2021-08-20 06:11] LABS: International Normalized Ratio 4.7
[2021-08-20 06:23] LABS: Anisocytosis 1+; Differential Comment SCANNED; Macrocytosis 1+; Microcytosis RARE; Platelet Estimate SLT DEC (ADEQ)
[2021-08-20 06:24] LABS: Schistocytes RARE
[2021-08-20 06:38] LABS: Anion Gap 9 (5-15); BUN 46 mg/dL (7-18); BUN/Creat Ratio 17.6 RATIO (10-20); Calcium,Total 9.5 mg/dL (8.5-10.1); Chloride 112 mmol/L (98-107); Creatinine, Serum 2.62 mg/dL (0.70-1.30); EST Glomerular Filtration Rate 26 mL/min (>60); Est Glom Filt Rate - Afr Amer 31 mL/min (>60); Estimated Creatinine Clearance 23.83 ml/min; Glucose 111 mg/dL (74-106); Potassium 4.1 mmol/L (3.5-5.1); Sodium Level 144 mmol/L (136-145)
[2021-08-20] MEDS: Ipratropium/Albuterol Sulfate 3 ML AMPUL.NEB INHALATION ×2 (07:07→10:42)
--- NOTE | 2021-08-20 07:53 | PN.CC_ITS ---
Assessment & Plan Assessment/Plan (1) Acute metabolic encephalopathy: (2) History of aortic valve replacement: (3) 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, stage III (moderate): PLAN: RECOMMENDATIONS: 1. Okay to transition to a p.o. equivalent of Unasyn to complete a 7-day course 2. Wean oxygen as tolerated 3. Hold Coumadin. Daily INRs 4. Consider long-term use of lactulose 5. Delirium protocol 6. Speech therapy evaluation 7. Hemodynamically stable on room air. Will sign off from a pulmonary perspective. 8. Patient can follow-up as previously scheduled 9. Walking oximetry prior to discharge IMPRESSIONS: 1. Acute metabolic encephalopathy Unclear etiology. Patient does appear to have a right lower lobe infiltrate with a history suggestive of intermittent aspiration. Speech therapy is following. Patient can likely be transitioned to a p.o. equivalent of Unasyn to complete a 7-day course. Patient did have an elevated ammonia with a history of Wiley. Could consider long-term use of lactulose to help with ammonia in the future. Patient would be at higher risk for delirium given advanced age chronic kidney disease and baseline hearing and slight loss. Low clinical suspicion for community-acquired pneumonia, but aspiration is very possible. Continue duo nebs, guaifenesin and pulmonary toileting techniques. 2. Acute hypoxic respiratory insufficiency/MIA Patient's previous pulmonary function test and walking oximetry were benign. Patient does have some mild restriction, but not enough to lead to desaturation. Patient would be at risk for central sleep apnea given cardiac h istory, but recently lost 50 pounds, so obstructive sleep apnea may have been resolved. Patient will need a walking oximetry prior to discharge. Bronchodilators are not unreasonable, but likely will not have significant improvement in respiratory status. 3. CKD stage IIIb/[place]/hypothyroidism/GERD/BPH/hypertension/WILEY Complicates care, management, recovery and prognosis. Okay to continue with baseline medications from my perspective. Subjective Subjective Patient appears to be much improved this morning. Patient is currently on room air and completely oriented. Patient was able to recognize me from the outpatient office. Patient denies any chest pain, abdominal pain, nausea or v omiting. Objective Data Objective Data Vital Signs: Vital Signs Temp Pulse Resp BP Pulse Ox 36.4 C L 71 18 136/44 H 96 08/20/21 03:30 08/20/21 03:30 08/20/21 03:30 08/20/21 03:30 08/20/21 03:30 Oxygen Flow Rate (L/min) 2 Oxygen Delivery Method Room Air Weight: 84 kg Body Mass Index (BMI) 28.7 Intake & Output: Intake and Output for Last 24 Hours 08/18/21 08/19/21 08/20/21 23:59 23:59 23:59 Intake Total 517 / 517 3235.25 / 3355.25 240 / 240 Balance 517 / 517 3235.25 / 3355.25 240 / 240 Lab / Micro Data Result Diagrams: 08/20/21 04:50 08/20/21 04:50 Labs: Laboratory Results - last 24 hr 08/18/21 17:15: Urine Color Yellow, Urine Clarity Clear, Urine pH 5.0, Ur Speci fic [place] 1.015, Urine Protein 15 H, Urine Glucose (UA) Normal, Urine Ketones Negative, Urine Occult Blood 10 H, Urine Nitrite Negative, Urine Bilirubin Negative, Urine Urobilinogen Normal, Ur Leukocyte Esterase Negative, Urine RBC 0-5 SEEN, Urine WBC 0 SEEN, Ur Squamous Epith Cells 0-5 SEEN, Urine Bacteria RARE, Urine Mucus RARE 08/19/21 06:20: Platelet Estimate MOD DEC 08/19/21 06:20: Sodium 144, Potassium 4.1, Chloride 111 H, Carbon Dioxide 24.0, Anion Gap 9, BUN 50 H, Creatinine 2.57 H, Estim Creat Clear Calc 24.29, Est GFR (MDRD) Af Amer 32 L, Est GFR (MDRD) Non-Af 26 L, BUN/Creatinine Ratio 19.5, Glucose 90, Calcium 9.2, Total Bilirubin 2.40 H, AST 35, ALT 19, Alkaline Phosphatase 252 H, Total Protein 7.0, Albumin 3.0 L, Globulin 4.0, Albumin/Globulin Ratio 0.8 L 08/19/21 06:20: PT 41.4 H, INR 4.4 H* 08/19/21 06:20: Vitamin B12 1930 H 08/20/21 04:50: PT 43.3 H, INR 4.7 H* 08/20/21 04:50: WBC 6.3, RBC 3.68 L, Hgb 12.1 L, Hct 38.8 L, MCV 105.4 H, MCH 32.9 H, MCHC 31.2 L, RDW Std Deviation 71.7 H, RDW Coeff of Jennifer 18.6 H, Plt Count 73 L, MPV 13.1 H, Immature Gran % (Auto) 0.300, Neut % (Auto) 67.6, Lymph % (Auto) 14.7 L, Swain % (Auto) 11.2 H, Eos % (Auto) 5.4 H, Baso % (Auto) 0.8, Absolute Neuts (auto) 4.3, Absolute Lymphs (auto) 0.93, Nucleated RBC % 0, Differential Comment SCANNED, Platelet Estimate SLT DEC, Anisocytosis 1+, Microcytosis RARE, Macrocytosis 1+, Schistocytes RARE 08/20/21 04:50: Sodium 144, Potassium 4.1, Chloride 112 H, Carbon Dioxide 23.0, Anion Gap 9, BUN 46 H, Creatinine 2.62 H, Estim Creat Clear Calc 23.83, Est GFR (MDRD) Af Amer 31 L, Est GFR (MDRD) Non-Af 26 L, BUN/Creatinine Ratio 17.6, G lucose 111 H, Calcium 9.5 Micro: Microbiology 08/18/21 18:51 Mucosa - Nasopharyngeal Respiratory Panel (PCR) - Final 08/18/21 17:15 Urine, Clean Catch Legionella Antigen - Final 08/18/21 17:15 Urine, Clean Catch Streptococcus pneumoniae Antigen (M - Final 08/18/21 13:23 Nasal Secretion SARS-CoV-2 Antigen (Rapid) - Final Physical Exam Const alert, oriented x3 and no apparent distress HEENT head/scalp atraumatic, moist oral mucous membranes and oropharynx normal Head and Scalp: normocephalic General Ear: hearing grossly impaired bilateral (Hearing aids in place) Eyes PERRL, EOMs intact bilaterally and conjunctivae normal Neck no lymphadenopathy, supple and no JVD Resp normal respiratory effort, no retractions, no use of accessory muscles and clear to auscultation bilaterally Auscultation: Negative for rales, rhonchi or wheezes Cardio regular rate, regular rhythm, no murmurs and no JVD Cardio Narrative: Mechanical heart sound Heart Sounds: prosthetic sounds GI normal to inspection, nondistended, normoactive bowel sounds, soft to palpation and non-tender no CVA tenderness Extremity normal to inspection, full ROM and no clubbing, cyanosis or edema Skin no rashes or lesions noted, no wounds and skin turgor normal Neuro CN's II-XII intact bilaterally Psych Mood & Affect: flat affect Charges/Coding Visit Charges Inpatient E&M: 73129 Subs Hosp L2
[2021-08-20] MEDS: Lactulose 20 GM/30 ML UDC PO (09:44)
[2021-08-20] MEDS: Carvedilol 3.125 MG TABLET PO (09:45)
[2021-08-20] MEDS: Pantoprazole Sodium 40 MG Tablet PO (09:45)
[2021-08-20] MEDS: Furosemide 20 MG Tablet PO (09:45)
[2021-08-20] MEDS: guaiFENesin 1,200 MG Tablet 1200 MG PO (09:45)
[2021-08-20] MEDS: Sodium Bicarbonate 650 MG Tablet PO (09:45)
[2021-08-20] MEDS: Isosorbide Mononitrate 30 MG Tablet PO (09:45)
--- NOTE | 2021-08-20 11:10 | DCINST_ITS ---
Discharge Instructions Diet Discharge Diet: No restrictions Activity Discharge Activity: Return to Normal Activity Weight Bearing Status: Weight bearing as tolerated Dressing / Incision Call your doctor if you observe: Fever of 101 or Higher, Numbness or Tingling, Shortness of breath, Dizziness, Chest pain, Increased palpitations (irregular heartbeat) and Calf discomfort Follow Up Care Please Follow Up With: Primary care provider When: Within the next two weeks. Test Results: Test results from this visit will be discussed in further detail at your follow-up appointment, if applicable. Discharge Plan Admission Admit Date/Time: 08/19/21 09:26 Primary Reason for Your Visit: Confusion Attending Provider: Siddharth Chowdhury Primary Care Provider: Vinny Atkinson Consulting Providers: Isaac Min ; Jd Weeks ; Sue Roberts AWNING HANGER Instructions Additional Instructions / Restrictions: Obtain PT/INR on Sunday08/22/2021. Discharge Orders/Prescriptions Prescriptions: New cefdinir 300 mg capsule 300 mg PO BID Qty: 10 RF: 0 Continued doxycycline hyclate 100 MG capsule 100 mg PO BID Qty: 180 RF: 3 ferrous sulfate 325 mg (65 mg iron) tablet 65 mg PO DINNER RF: 0 pantoprazole 40 mg tablet,delayed release (DR/EC) 40 tablet PO DAILY RF: 0 multivitamin with folic acid 1 TABLET tablet 2 tab PO DAILY RF: 0 allopurinol 100 MG tablet 100 mg PO DINNER RF: 0 calcitriol 0.25 MCG capsule 0.25 mg PO DINNER RF: 0 cyclobenzaprine 10 MG tablet 10 mg PO QHS RF: 0 carvedilol 3.125 mg tablet 3.125 mg PO BID RF: 0 tamsulosin 0.4 mg capsule 0.4 mg PO DINNER RF: 0 furosemide 20 mg tablet 20 mg PO DAILY Qty: 90 RF: 3 sodium bicarbonate 650 mg tablet 650 mg PO BID RF: 0 levothyroxine 75 mcg tablet 75 mcg PO DAILY Qty: 90 RF: 3 isosorbide mononitrate 30 mg tablet extended release 24 hr 30 mg PO DAILY Qty: 90 RF: 3 Held warfarin 6 mg tablet 6 mg PO DINNER RF: 0 Hold Instructions: Resume on 08/22/21. Do not resume unless told to do so by your primary care provider. Other Ambulatory Orders: Prothrombin Time w/INR (Routine) Timeframe: 2 Days Facility: [facility] - Location: Laboratory Ordered By: Esa KEMP Referrals / Follow Up: Vinny Atkinson MD [Primary Care Provider] - Within 1 Week (Obtain PT/INR on Sunday08/22/2021. Consult Dr. Atkinson to resume Coumadin. ) Disposition Disposition (needs filled in before D/C Order can be placed): Home, Self Care
--- NOTE | 2021-08-20 14:21 | DS.PCM_ITS ---
Documented by User: Esa KEMP 08/20/21 14:29 Providers Date of Admission: 08/19/21 Primary Care Physician: Dr. Vinny Atkinson MD Consultations 08/18/21 16:38 Consult: Label Designer / Pulmonary Medicine Routine Consulting Provider: Pulmonary Medicine [facility] [place] Reason for Consult: Family request EMERGENT Consult: No MD Notified: Yes Date Notified: 08/18/21 Time Notified: 16:41 Method of Notification: Text Reason For Visit: ALTERED MENTAL STATUS Diagnosis Discharge Diagnosis (1) Acute metabolic encephalopathy: Status: Acute Code(s): G93.41 - Metabolic encephalopathy (2) History of aortic valve replacement: Status: Chronic Code(s): Z95.2 - Presence of prosthetic heart valve (3) 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, stage III (moderate): Status: Chronic Code(s): N18.3 - 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, stage 3 (moderate) Medications at Discharge Home Medications multivitamin with folic acid 2 tab PO DAILY 06/06/16 allopurinol 100 mg PO DINNER 08/29/17 calcitriol 0.25 mg PO DINNER 08/29/17 doxycycline hyclate 100 mg capsule 100 mg PO BID #180 cap 01/18/18 ferrous sulfate 325 mg (65 mg iron) tablet 65 mg PO DINNER tab 11/21/18 cyclobenzaprine 10 mg PO QHS 12/31/18 furosemide 20 mg tablet 20 mg PO DAILY #90 tab 01/27/21 sodium bicarbonate 650 mg tablet 650 mg PO BID tablet 03/01/21 levothyroxine 75 mcg tablet 75 mcg PO DAILY #90 tab 04/14/21 isosorbide mononitrate 30 mg tablet,extended release 24 hr 30 mg PO DAILY #90 tab 04/25/21 carvedilol 3.125 mg PO BID 05/19/21 tamsulosin 0.4 mg PO DINNER 05/19/21 warfarin 6 mg PO DINNER 06/28/21 pantoprazole 40 mg tablet,delayed release 40 tablet PO DAILY 08/02/21 cefdinir 300 mg PO BID #10 cap 08/20/21 lactulose 20 g PO BID #60 ea 08/20/21 Hospital Course Summary of Care Provided Minutes Spent on Discharge: 35 Hospital Course: Disposition: Patient to be discharged home, home health care shawna luque via case management. 1) acute metabolic encephalopathy secondary to community-acquired pneumonia Patient's encephalopathy has resolved, patient is able to hold appropriate conversation and is alert and oriented x3. CT did not demonstrate any acute change and only showed chronic involutional changes of the brain. Ammonia level elevated, lactulose was given. UA unremarkable. Plan; as below, continue lactulose 20 mg p.o. twice daily x1 month, follow-up with primary care provider within the next 2 weeks. 2) acute hypoxic respiratory failure secondary to right lower lobe community-ac quired pneumonia. Currently satting 95 percent on 2 room air, was hypoxic on admission. CBC does not demonstrate a leukocytosis and vital signs are stable, patient is afebrile. Legionella and strep pneumo urine antigens negative. Viral respiratory panel negative. Rapid Covid is negative. Plan; cefdinir 30 mg p.o. twice daily x5 days initiated, follow-up with pulmonology within next 2 weeks. 3) supratherapeutic INR Currently 4.7, continue to hold Coumadin, recheck PT/INR on 08/22/2021. Consult primary care provider before reinitiating Coumadin. 4) CKD stage IIIb Creatinine currently 2.5, which is patient's baseline. 5) hypothyroidism Continue Synthroid. 6) GERD Continue PPI. 7) BPH Continue Flomax. 8) atrial flutter Continue Coreg. 9) HTN Continue Coreg, Lasix and isosorbide. Patient seen by Esa Conway PA-C, under the supervision of Dr. Chowdhury. Physical Exam Narrative Patient is a 71-year-old male comfortably resting in bed, alert and oriented x3. Patient reports feeling improved from admission and is able to hold appropriate conversation. Denies development of any new symptoms overnight. Denies chest pain, shortness of breath, palpitations, hemoptysis, sputum production, fever, chills, N/V/D. Const alert, oriented x3 and no apparent distress HEENT normocephalic, head/scalp atraumatic and hearing grossly normal bilaterally Eyes PERRL, EOMs intact bilaterally and conjunctivae normal Neck no lymphadenopathy, supple and no JVD Resp normal respiratory effort, no retractions and clear to auscultation bilaterally Cardio regular rate, regular rhythm, no murmurs and no JVD GI normal to inspection, nondistended, normoactive bowel sounds, soft to palpation and non-tender Extremity normal to inspection, full ROM and no clubbing, cyanosis or edema Skin no rashes or lesions noted, no wounds and skin turgor normal Neuro CN's II-XII intact bilaterally Psych affect normal Weight / BMI Weight Weight: 185 lb 3.013 oz Body Mass Index (BMI) 28.7 ABG / Lab / Microbiology Data Result Diagrams: 08/20/21 04:50 08/20/21 04:50 Laboratory: Laboratory Results - last 24 hr 08/20/21 04:50: PT 43.3 H, INR 4.7 H* 08/20/21 04:50: WBC 6.3, RBC 3.68 L, Hgb 12.1 L, Hct 38.8 L, MCV 105.4 H, MCH 32.9 H, MCHC 31.2 L, RDW Std Deviation 71.7 H, RDW Coeff of Jennifer 18.6 H, Plt Count 73 L, MPV 13.1 H, Immature Gran % (Auto) 0.300, Neut % (Auto) 67.6, Lymph % (Auto) 14.7 L, Clinch % (Auto) 11.2 H, Eos % (Auto) 5.4 H, Baso % (Auto) 0.8, Absolute Neuts (auto) 4.3, Absolute Lymphs (auto) 0.93, Nucleated RBC % 0, Differential Comment SCANNED, Platelet Estimate SLT DEC, Anisocytosis 1+, Microcytosis RARE, Macrocytosis 1+, Schistocytes RARE 08/20/21 04:50: Sodium 144, Potassium 4.1, Chloride 112 H, Carbon Dioxide 23.0, Anion Gap 9, BUN 46 H, Creatinine 2.62 H, Estim Creat Clear Calc 23.83, Est GFR (MDRD) Af Amer 31 L, Est GFR (MDRD) Non-Af 26 L, BUN/Creatinine Ratio 17.6, Glucose 111 H, Calcium 9.5 Microbiology: Microbiology 08/18/21 18:51 Mucosa - Nasopharyngeal Respiratory Panel (PCR) - Final 08/18/21 17:15 Urine, Clean Catch Legionella Antigen - Final 08/18/21 17:15 Urine, Clean Catch Streptococcus pneumoniae Antigen (M - Final 08/18/21 13:23 Nasal Secretion SARS-CoV-2 Antigen (Rapid) - Final D/C Instructions Discharge Diet: No restrictions Weight Bearing Status: Weight bearing as tolerated Call your doctor if you observe: Fever of 101 or Higher, Numbness or Tingling, Shortness of breath, Dizziness, Chest pain, Increased palpitations (irregular heartbeat) and Calf discomfort Please Follow Up With: Primary care provider When: Within the next two weeks. Meaningful Use Info Meaningful Use Diagnoses (Choose all that apply): None applicable Discharge Plan Admission Admit Date/Time: 08/19/21 09:26 Primary Reason for Your Visit: Confusion Attending Provider: Siddharth Chowdhury Primary Care Provider: Vinny Atkinson Consulting Providers: Isaac Min ; Jd Weeks ; Sue Roberts DENTAL TECHNOLOGY ADVISOR Instructions Additional Instructions / Restrictions: Obtain PT/INR on Sunday08/22/2021. Discharge Orders/Prescriptions Prescriptions: New cefdinir 300 mg capsule 300 mg PO BID Qty: 10 RF: 0 lactulose 20 gram packet 20 g PO BID Qty: 60 RF: 0 Continued doxycycline hyclate 100 MG capsule 100 mg PO BID Qty: 180 RF: 3 ferrous sulfate 325 mg (65 mg iron) tablet 65 mg PO DINNER RF: 0 pantoprazole 40 mg tablet,delayed release (DR/EC) 40 tablet PO DAILY RF: 0 multivitamin with folic acid 1 TABLET tablet 2 tab PO DAILY RF: 0 allopurinol 100 MG tablet 100 mg PO DINNER RF: 0 calcitriol 0.25 MCG capsule 0.25 mg PO DINNER RF: 0 cyclobenzaprine 10 MG tablet 10 mg PO QHS RF: 0 carvedilol 3.125 mg tablet 3.125 mg PO BID RF: 0 tamsulosin 0.4 mg capsule 0.4 mg PO DINNER RF: 0 furosemide 20 mg tablet 20 mg PO DAILY Qty: 90 RF: 3 sodium bicarbonate 650 mg tablet 650 mg PO BID RF: 0 levothyroxine 75 mcg tablet 75 mcg PO DAILY Qty: 90 RF: 3 isosorbide mononitrate 30 mg tablet extended release 24 hr 30 mg PO DAILY Qty: 90 RF: 3 Held warfarin 6 mg tablet 6 mg PO DINNER RF: 0 Hold Instructions: Resume on 08/22/21. Do not resume unless told to do so by your primary care provider. Other Ambulatory Orders: Prothrombin Time w/INR (Routine) Timeframe: 2 Days Facility: [facility] [place] - Location: Laboratory Ordered By: Esa KEMP Referrals / Follow Up: Vinny Atkinson MD [Primary Care Provider] - Within 1 Week (Obtain PT/INR on Sunday08/22/2021. Consult Dr. Atkinson to resume Coumadin. ) Disposition Disposition (needs filled in before D/C Order can be placed): Home, Self Care Documented by User: Dr. Siddharth Chowdhury MD 08/20/21 14:48 Providers Date of Admission: 08/19/21 Reason For Visit: ALTERED MENTAL STATUS Medications at Discharge Home Medications multivitamin with folic acid 2 tab PO DAILY 06/06/16 allopurinol 100 mg PO DINNER 08/29/17 calcitriol 0.25 mg PO DINNER 08/29/17 doxycycline hyclate 100 mg capsule 100 mg PO BID #180 cap 01/18/18 ferrous sulfate 325 mg (65 mg iron) tablet 65 mg PO DINNER tab 11/21/18 cyclobenzaprine 10 mg PO QHS 12/31/18 furosemide 20 mg tablet 20 mg PO DAILY #90 tab 01/27/21 sodium bicarbonate 650 mg tablet 650 mg PO BID tablet 03/01/21 levothyroxine 75 mcg tablet 75 mcg PO DAILY #90 tab 04/14/21 isosorbide mononitrate 30 mg tablet,extended release 24 hr 30 mg PO DAILY #90 tab 04/25/21 carvedilol 3.125 mg PO BID 05/19/21 tamsulosin 0.4 mg PO DINNER 05/19/21 warfarin 6 mg PO DINNER 06/28/21 pantoprazole 40 mg tablet,delayed release 40 tablet PO DAILY 08/02/21 cefdinir 300 mg PO BID #10 cap 08/20/21 lactulose 20 g PO BID #60 ea 08/20/21 Hospital Course Summary of Care Provided Hospital Course: This patient was seen in conjunction with VIRIDIANA Herr. I have independently interviewed and examined the patient and reviewed pertinent history, examination findings, laboratory and plan of management. I have reviewed the note and agree with the documented findings with the few additional points. In brief, patient is admitted with acute metabolic encephalopathy probably due to community-acquired pneumonia and metabolic encephalopathy. Patient is awake and alert and oriented x3. Ammonia level elevated on lactulose. Patient also with acute hypoxic respiratory failure secondary to right lower lobe pneumonia. On Unasyn. Discontinue azithromycin. 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 Coumadin on hold. Patient is discharged on cefdinir to complete a total of 7 days of antibiotic. Patient is hyperbilirubinemia, total bili 2.4, alkaline phos 252. ALT and AST are normal. Total bilirubin elevated but has been so since December 09. Cholestatic pattern on liver chemistry. 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 CKD stage IIIb Other comorbidities as mentioned above Discharge medication reconciliation done. Discharge follow-up instructions completed. Discharge process discussed with the patient and all questions were answered to patient's satisfaction. Total time spent, exact 35 minutes on discharge meds reconciliation, examination, coordination of care with nurses and ancillary staff, review of imaging and blood test and discussion with the patient on follow-up instructions I have discussed my assessment with VIRIDIANA Herr and orders have been reviewed. Physical Exam Narrative General: Awake, oriented x3, cooperative, patient is alert. HEENT: Atraumatic, PERRLA, EOMI, Normocephalic Oral: No Gingival or Mucosal Lesions/ Ulcerations Neck: Supple, No JVD, Negative Carotid Bruits Lungs: Air entry diminished in bilateral lung bases. Lungs clear. Cardiovascular: Aortic valve click present. Systolic murmur. Regular rhythm, right subclavicular pacemaker Abdomen: Bowel Sounds Present, Soft, Non Tender, Non-Distended : No renal angle tenderness. No suprapubic tenderness. Extremities: No edema, Capillary Refill Less than 3 Seconds Skin: No rashes, No breakdown Musculoskeletal: No Tenderness to Palpation of Joints or Extremities Neurological: Cranial nerves II-XII grossly intact, DTR 2+/4 and Symmetrical, Neuro grossly intact Psych/Mental Status: Flat affect. ABG / Lab / Microbiology Data Result Diagrams: 08/20/21 04:50 08/20/21 04:50 Discharge Plan Admission Admit Date/Time: 08/19/21 09:26 Primary Reason for Your Visit: Confusion Attending Provider: Siddharth Chowdhury Primary Care Provider: Vinny Atkinson Consulting Providers: Isaac Min ; Jd Weeks ; Sue Roberts DENTAL TECHNOLOGY ADVISOR Instructions Additional Instructions / Restrictions: Obtain PT/INR on Sunday08/22/2021. Discharge Orders/Prescriptions Prescriptions: New cefdinir 300 mg capsule 300 mg PO BID Qty: 10 RF: 0 lactulose 20 gram packet 20 g PO BID Qty: 60 RF: 0 Continued doxycycline hyclate 100 MG capsule 100 mg PO BID Qty: 180 RF: 3 ferrous sulfate 325 mg (65 mg iron) tablet 65 mg PO DINNER RF: 0 pantoprazole 40 mg tablet,delayed release (DR/EC) 40 tablet PO DAILY RF: 0 multivitamin with folic acid 1 TABLET tablet 2 tab PO DAILY RF: 0 allopurinol 100 MG tablet 100 mg PO DINNER RF: 0 calcitriol 0.25 MCG capsule 0.25 mg PO DINNER RF: 0 cyclobenzaprine 10 MG tablet 10 mg PO QHS RF: 0 carvedilol 3.125 mg tablet 3.125 mg PO BID RF: 0 tamsulosin 0.4 mg capsule 0.4 mg PO DINNER RF: 0 furosemide 20 mg tablet 20 mg PO DAILY Qty: 90 RF: 3 sodium bicarbonate 650 mg tablet 650 mg PO BID RF: 0 levothyroxine 75 mcg tablet 75 mcg PO DAILY Qty: 90 RF: 3 isosorbide mononitrate 30 mg tablet extended release 24 hr 30 mg PO DAILY Qty: 90 RF: 3 Held warfarin 6 mg tablet 6 mg PO DINNER RF: 0 Hold Instructions: Resume on 08/22/21. Do not resume unless told to do so by your primary care provider. Other Ambulatory Orders: Prothrombin Time w/INR (Routine) Timeframe: 2 Days Facility: [facility] [place] - Location: Laboratory Ordered By: Esa KEMP Referrals / Follow Up: Vinny Atkinson MD [Primary Care Provider] - Within 1 Week (Obtain PT/INR on 08/22/2021. Consult Dr. Atkinson to resume Coumadin. ) Disposition Disposition (needs filled in before D/C Order can be placed): Home, Self Care Charges/Coding Visit Charges Inpatient E&M: 24391 Disch Hosp
--- NOTE | 2021-08-20 15:12 | CASEMGMT ---
Addendum entered by Wolf Bennett 08/20/21 16:33: /pt made aware, if once pt returns home, that they feel that pt needs HHC, to contact PCP and discuss w/him. Original Note: GIO HEARN NOTE: This RN CM informed that pt/ are interested in OP therapy. RN CM to room to talk w/pt and at this time. Discussed both HHC and OP therapy at this time. Pt/ decline HHC. states thinks pt will do better getting out of the home and going to OP therapy and she states would like for him to go to [facility]. Script for OP PT/OT and ST obtained from JULI See, and given to at this time and instructed on calling [facility] to set up appts. She voices understanding and appreciation of script and info. Pt/ deny having any other discharge planning/needs. Ricky MARIE RN CM
--- NOTE | 2021-08-22 15:49 | CASEMGMT ---
DOMENIC DC F/u Call DC Date: 08/20/21 DC diagnosis: Acute metabolic encephalopathy DC Disposition: Home Lace/Strata: 10/21 Called patient listed cell phone, answered by patient Bre. Introduced self and role. States that patient is currently taking a nap. States he is doing good, had blood drawn today, got Dairy mccann and now taking a nap. Confirmed picked up Abx and Lactulose. got all his outpatient appointments set up through [facility]. Denies any further questions, concerns or issues at this time. Sharlene Gonzáles RNCM
== END 2021-08-20 13:50 | disposition home or self-care (01) | DRG 193 ==
LOC: ED 15:23 → PCU 15:30
PROVIDERS: Physician Assistant; Admitting Provider Internal Medicine; Emergency Provider Emergency Medicine; PCP Family Medicine; Visit Provider Internal Medicine
DX: J18.9 Pneumonia, unspecified organism (principal); J96.01 Acute respiratory failure with hypoxia; G93.41 Metabolic encephalopathy; C83.39 Diffuse large B-cell lymphoma, extranodal and solid organ sites; I48.92 Unspecified atrial flutter; I48.91 Unspecified atrial fibrillation; N18.32 Chronic kidney disease, stage 3b; I25.10 Atherosclerotic heart disease of native coronary artery without angina pectoris; I12.9 Hypertensive chronic kidney disease with stage 1 through stage 4 chronic kidney disease, or unspecified chronic kidney disease; G47.33 Obstructive sleep apnea (adult) (pediatric); M10.9 Gout, unspecified; E78.00 Pure hypercholesterolemia, unspecified; D53.9 Nutritional anemia, unspecified; E03.9 Hypothyroidism, unspecified; K21.9 Gastro-esophageal reflux disease without esophagitis; K75.81 Nonalcoholic steatohepatitis (NASH); N40.0 Benign prostatic hyperplasia without lower urinary tract symptoms; I25.2 Old myocardial infarction; Z95.2 Presence of prosthetic heart valve; Z95.0 Presence of cardiac pacemaker; Z86.718 Personal history of other venous thrombosis and embolism; Z79.01 Long term (current) use of 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; Z79.899 Other long term (current) drug therapy; Z79.890 Hormone replacement therapy
CPT/HCPCS: 36415; 70450; 71045; 80048; 80053; 81001; 82140; 82607; 82746; 83605; 84443; 84484; 85025; 85610; 87040; 87426; 87449; 87633; 92526; 92610; 93005; 94640; 97162; 97166; 97802; 99251; 99284; J7030; A4216; G0463; J0295

== ENCOUNTER → 2021-08-22 13:09 | Outpatient (CLI) | payer MEDICARE, OTHER, SELFPAY ==
[2021-03-24 09:45] VITALS: BMI 29.4
[2021-08-22 14:02] LABS: Hematocrit 38.6 % (40-54); Mean Corp Hgb Conc 31.1 g/dL (32-36); Mean Corpuscular Hgb 32.7 pg (27.0-32.0); Mean Corpuscular Volume 105.2 fL (80-94); Mean Platelet Vol. 12.9 fl (6.2-12.0); POSITIVE COUNT YES; POSITIVE MORPHOLOGY YES; Platelet Count 76 K/mm3 (150-450); RBC Distribution Width CV 18.4 % (11.6-14.6); RBC Distribution Width SD 71.1 fl (35.1-43.9); Red Blood Count 3.67 M/mm3 (4.6-6.2); White Blood Count 7.7 K/mm3 (4.4-11.0)
[2021-08-22 14:03] LABS: Scan Indicated on CBC? Y/N YES- FLAGS NOTED
[2021-08-22 14:06] LABS: International Normalized Ratio 2.3; Prothrombin Time (Protime)PT. 24.4 SECONDS (11.7-14.9)
[2021-08-22 14:25] LABS: Differential Comment SCANNED
[2021-08-22 14:25] LABS: Albumin, Serum 3.1 g/dL (3.2-5.0); BUN 39 mg/dL (7-18); BUN/Creat Ratio 16.1 RATIO (10-20); Chloride 112 mmol/L (98-107); Creatinine, Serum 2.42 mg/dL (0.70-1.30); EST Glomerular Filtration Rate 28 mL/min (>60); Est Glom Filt Rate - Afr Amer 34 mL/min (>60); Glucose 76 mg/dL (74-106); Phosphorus 2.7 mg/dL (2.5-4.9); Sodium Level 143 mmol/L (136-145)
== END ==
PROVIDERS: Physician Assistant; PCP Family Medicine; Referring Provider Internal Medicine Nephrology; Visit Provider Internal Medicine Nephrology
DX: N18.4 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, stage 4 (severe) (principal); N25.81 Secondary hyperparathyroidism of renal origin; D64.9 Anemia, unspecified; R79.1 Abnormal coagulation profile
CPT/HCPCS: 36415; 80069; 83970; 85027; 85610

== ENCOUNTER 2021-08-24 05:03 | Inpatient (IN) | payer MEDICARE, OTHER, SELFPAY ==
[2021-08-24] VITALS (30 sets, daily range): BP systolic 108–198; BP diastolic 49–114; PULSE 70–104; RESP 14–45; TEMP 36.2–37.3; O2SAT 91–100; BMI 29.5; BMI 28.5
--- NOTE | 2021-08-24 05:26 | RAD_ITS ---
STUDY: X-RAY CHEST REASON FOR EXAM: Male, 71 years old. Chest pain TECHNIQUE: Single AP portable view of the chest. COMPARISON: August 18, 2021 chest x-ray FINDINGS: There is a right-sided pacer with leads overlying the heart. Sternotomy wires are seen midline. Postoperative change in the right neck soft tissues. There is persistent focal linear density in the right lower lobe. Interstitial markings are still mildly prominent in the left lower lobe. There is mild cardiac enlargement. Normal mediastinum and max. Normal visualized pulmonary arteries. There is atherosclerotic calcification of the aortic arch with tortuosity. There are diffuse degenerative changes of the visualized thoracic spine. Normal visualized ribs, clavicles, and shoulders. There is no demonstrated abnormality of the visualized soft tissue structures of the upper abdomen. RAD/Chest 1 View (Portable) IMPRESSION: Stable possibly chronic lung markings. Pacemaker. Status post sternotomy cardiomegaly. Findings relatively stable compared to prior study. Electronically Signed: Britni Mccracken MD at 6:07 EDT Tel , Service support ,
--- NOTE | 2021-08-24 05:26 | EKG12_ITS ---
Test Reason : SOB Blood Pressure : / mmHG Vent. Rate : 071 BPM Atrial Rate : 071 BPM P-R Int : 360 ms QRS Dur : 162 ms QT Int : 504 ms P-R-T Axes : -16 -06 119 degrees QTc Int : 547 ms Electronic ventricular pacemaker Confirmed by SOULEYMANE NIX, AIDEE ([id number]), sausage grinder TRINA VIVAR ([id number]) on 08/29/2021 10:38:42 AM Referred By: APRIL Confirmed By:ALVARADO COMER MD
--- NOTE | 2021-08-24 05:40 | EX.ED.DYSGE1 ---
HPI History of Present Illness Chief Complaint: Shortness of Breath Detail of Chief Complaint: Confused Informant: spouse/S.O. Onset/Context/Timing Onset: Today and Hours Context: Gradual Onset Timing: Continuous Current Severity: Moderate Maximum Severity: Moderate Narrative Narrative: 71-year-old male extensive past medical history including mechanical heart valve which is on Coumadin. Pacemaker. Prior MRSA infection from abdominal surgery. Renal insufficiency stage III. Prior non-Hodgkin's lymphoma. Recently the patient had a fall and head injury in which a CAT scan was negative. Then last week he seemed confused he was hospitalized at that time diagnosed and treated with aspiration pneumonia for which he still on antibiotics. He also had a elevated ammonia level and abnormal liver enzymes for which she was evaluated by a GI physician in [place]. Tonight his said he was doing well and then he started getting confused and like he was short of breath again. No chest pain. No hemoptysis. No fever. No vomiting or diarrhea. Prior similar symptoms: Yes Recent Illness/Hospitalization: Yes [facility] Medical History Abnormal results of thyroid function studies Anemia Atrial flutter Bacterial endocarditis Benign essential hypertension Biventricular cardiac pacemaker in situ (~05/26/16) CAD (coronary artery disease) Cardiomyopathy in disease classified elsewhere 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, stage III (moderate) COVID-19 Diffuse large b-cell lymphoma, extranodal and solid organ sites GI bleed GI bleed Gout History of DVT (deep vein thrombosis) History of pacemaker History of rheumatic fever as a child Hypothyroidism (acquired) Infectious endocarditis MRSA (methicillin resistant Staphylococcus aureus) infection Non-rheumatic mitral regurgitation Non-rheumatic mitral valve stenosis Non-ST elevation (NSTEMI) myocardial infarction MIA (obstructive sleep apnea) Paroxysmal ventricular tachycardia Pure hypercholesterolemia Rheumatic aortic stenosis Rheumatic mitral insufficiency TIA (transient ischemic attack) (~11/19/15) Home Medications multivitamin with folic acid 2 tab PO DAILY 06/06/16 [History Last Taken 08/17/21] allopurinol 100 mg PO DINNER 08/29/17 [History Last Taken 08/17/21] calcitriol 0.25 mg PO DINNER 08/29/17 [History Last Taken 08/17/21] doxycycline hyclate 100 mg capsule 100 mg PO BID #180 cap 01/18/18 [Rx Last Taken 08/18/21] ferrous sulfate 325 mg (65 mg iron) tablet 65 mg PO DINNER tab 11/21/18 [History Last Taken 08/17/21] cyclobenzaprine 10 mg PO QHS 12/31/18 [History Last Taken 08/17/21] furosemide 20 mg tablet 20 mg PO DAILY #90 tab 01/27/21 [Rx Last Taken 08/18/21] sodium bicarbonate 650 mg tablet 650 mg PO BID tablet 03/01/21 [History Last Taken 08/18/21] levothyroxine 75 mcg tablet 75 mcg PO DAILY #90 tab 04/14/21 [Rx Last Taken 08/18/21] isosorbide mononitrate 30 mg tablet,extended release 24 hr 30 mg PO DAILY #90 tab 04/25/21 [Rx Last Taken 08/18/21] carvedilol 3.125 mg PO BID 05/19/21 [History Last Taken 08/18/21] tamsulosin 0.4 mg PO DINNER 05/19/21 [History Last Taken 08/17/21] warfarin 6 mg PO DINNER 06/28/21 [History Last Taken 08/17/21] pantoprazole 40 mg tablet,delayed release 40 tablet PO DAILY 08/02/21 [History Last Taken 08/18/21] cefdinir 300 mg PO BID #10 cap 08/20/21 [Rx Last Taken Unknown] lactulose 20 g PO BID #60 ea 08/20/21 [Rx Last Taken Unknown] Allergy/AdvReac Type Severity Reaction Status Date / Time No Known Allergies Allergy Verified 08/18/21 12:41 Family History Father CAD (coronary artery disease) CABG Brother CAD (coronary artery disease) CABG Mother Diabetes Sister Breast cancer Diabetes Sister Cancer breast Diabetes Surgical History dual chamber pacemaker implantation (~10/2010) History of aortic valve replacement (~08/2003) History of appendectomy History of atrioventricular chiquita ablation History of cholecystectomy History of evacuation of hematoma History of mechanical aortic valve replacement (~1986) History of mitral valve repair (~08/2003) Social History household members: spouse housing: house Smoking Status: Never smoker alcohol intake: never substance use type: does not use caffeine: No what type of physical activity do you participate in: weight training and other details: Nustep frequency: 3-4 times per week duration: 45-60 minutes/day seatbelt use: always do you feel safe at home: Yes ROS ROS ED ROS Narrative Patient not answering questions. thinks he may be short of breath and confused. Review of Systems ROS Unobtainable: due to mental status Constitutional Constitutional ED: Denies chills or fever(s) Eyes Eyes: Denies change in vision ENT ENT ED: Denies ear pain or sore throat Cardiovascular Cardiovascular: Denies chest pain Respiratory/Chest Respiratory/Chest: Reports dyspnea Gastrointestinal Gastrointestinal: Denies abdominal pain, diarrhea, nausea or vomiting Genitourinary Genitourinary ED: Denies dysuria Musculoskeletal Musculoskeletal: Denies myalgias Integumentary Denies rash Neurologic Neurologic: Denies headache(s) Psychiatric Psychiatric: Denies depression Endocrine Endocrinology: Denies polyuria Allergic/Immunologic Allergic/Immunologic ED: Denies urticaria EXAM Physical Exam Narrative Exam Narrative: Or male lying in bed. Vital signs are stable. He is afebrile. His initial blood pressure is 177/83. HEENT exam pupils round reactive light. No facial droop. No signs of trauma. Neck nontender no meningismus. Lungs clear to auscultation bilaterally. Heart regular rhythm rate about 80. No murmur appreciated. Mechanical click. Abdomen soft nondistended normal bowel sounds no peritoneal signs. Large prior abdominal surgical wound but is healed. Patient moving all 4 extremities. Nontender. No edema. Neurologically he is awake he will open his eyes. He is talking incoherently. He is moving all 4 extremities. He is really not following many commands. He does seem confused. Const Vital Signs: 08/24/21 05:04 08/24/21 05:15 08/24/21 05:18 Temperature 98.5 F 98.9 F Temperature Source Oral Oral Pulse Rate 78 70 Respiratory Rate 38 H 30 H Respiratory Effort Short of Breath Labored Respiratory Depth Shallow Respiratory Pattern Tachypnea Blood Pressure 177/83 H 171/79 H Blood Pressure Mean 114 109 Pulse Ox 98 98 Oxygen Delivery Method Room Air Nasal Cannula Nasal Cannula Oxygen Flow Rate (L/min) 2 2 08/24/21 05:37 08/24/21 05:38 08/24/21 05:52 Temperature Temperature Source Pulse Rate Respiratory Rate Respiratory Effort Respiratory Depth Respiratory Pattern Blood Pressure Blood Pressure Mean Pulse Ox Oxygen Delivery Method Nasal Cannula Nasal Cannula Nasal Cannula Oxygen Flow Rate (L/min) 2 2 2 08/24/21 06:10 08/24/21 06:38 Temperature 97.8 F 99.2 F H Temperature Source Temporal Temporal Pulse Rate 89 80 Respiratory Rate 23 H 20 H Respiratory Effort Respiratory Depth Respiratory Pattern Blood Pressure 198/76 H 108/82 H Blood Pressure Mean 116 90 Pulse Ox 96 98 Oxygen Delivery Method Nasal Cannula Oxygen Flow Rate (L/min) 2 Positive well nourished and well developed; Negative for obese, cachectic, contractures or unkempt General Appearance ED: well developed; Negative for unkempt, cachectic, contractures, cyanotic, diaphoretic or NAD Nutritional Appearance: Negative for cachectic or obese HEENT Reports moist mucous membranes Negative for trauma or tenderness Eyes PERRL and EOMs intact bilaterally Neck no lymphadenopathy, supple and no JVD General: Negative for tenderness Chest Wall inspection of chest normal and palpation of chest normal Resp normal respiratory effort and clear to auscultation bilaterally Effort and Inspection: Negative for pain with movement Auscultation: Negative for rales, rhonchi or wheezes Cardio regular rate, regular rhythm, S1 normal heart sound, S2 normal heart sound and no murmurs GI normal to inspection, nondistended, normoactive bowel sounds; Negative for non-tender or non-distended Auscultation: Negative for normoactive bowel sounds Palpation: soft Back/Spine no CVA tenderness Extremity normal to inspection General Extremety ED: Negative for edema or tenderness General Extremity: Negative for edema Neuro No oriented x3 Neuro Narrative: Confused. Not answering questions. Following limited commands. Sensorium / Orientation: alert and orientation impaired Psych Appearance: Negative for unkempt Skin no rashes or lesions noted and no wounds MDM MDM MDM Narrative Medical decision making narrative: 69-year-old male with mental status change. Questionable shortness of breath. Recent hospitalization for aspiration pneumonia. Recent elevated ammonia level of uncertain etiology. Will undergo a sepsis work-up. Has had 2 recent CAT scans that were unremarkable I do not think he needs imaging at this time. Repeat exam patient was initially given a milligram of Ativan to try to help him relax. He had to be given a second dose. states that this is definitely not his baseline. She said normally he is very calm person. She knows it would not of a specific cause at this time. He will be admitted to the hospital and have further evaluation. Lab Data Attestation: I reviewed the patient's lab results. Lab results narrative: CBC shows a white count 9. Hemoglobin 13. Platelet count 120,000 and low. PT/INR of 20 and 1.8. Electrolytes normal gap at 9 BUN and creatinine are 34 and 2.42. Has a known history of renal insufficiency. Liver enzymes alk phos is elevated to 61 AST is 41. Total bilirubin is 2.8. Ammonia level is 35 and actually lower than it was most recently. Lactic acid is 1.7. Labs are not significantly different from recent labs on admission done. The ammonia level is actually significantly improved and it was only 56 previously. Urinalysis shows no signs of action. No nitrates. No whites or red cells. 1+ bacteria. Patient has had 2 CAT scans of the brain in the last 30 days both of which were unremarkable showing chronic changes. I do not think he needs a CAT scan of his brain today. Labs: Laboratory Results - last 24 hr 08/24/21 08/24/21 08/24/21 05:16 05:16 05:16 WBC 9.4 RBC 3.93 L Hgb 13.0 Hct 41.5 MCV 105.6 H MCH 33.1 H MCHC 31.3 L RDW Std Deviation 71.7 H RDW Coeff of Jennifer 18.6 H Plt Count 120 L MPV 12.3 H Immature Gran % (Auto) 0.300 Neut % (Auto) 80.0 H Lymph % (Auto) 9.[address] [place] % (Auto) 7.1 Eos % (Auto) 2.3 Baso % (Auto) 0.5 Absolute Neuts (auto) 7.5 Absolute Lymphs (auto) 0.92 Nucleated RBC % 0 Anisocytosis 2+ PT 20.5 H INR 1.8 APTT Sodium 144 Potassium 4.0 Chloride 109 H Carbon Dioxide 26.0 Anion Gap 9 BUN 34 H Creatinine 2.42 H Estim Creat Clear Calc 25.80 Est GFR (MDRD) Af Amer 34 L Est GFR (MDRD) Non-Af 28 L BUN/Creatinine Ratio 14.0 Glucose 130 H Lactic Acid Calcium 9.8 Total Bilirubin 2.80 H AST 41 H ALT 22 Alkaline Phosphatase 261 H Ammonia Troponin I High Sens 55 Total Protein 8.1 Albumin 3.5 Globulin 4.6 H Albumin/Globulin Ratio 0.8 L Urine Color Urine Clarity Urine pH Ur Specific [place] Urine Protein Urine Glucose (UA) Urine Ketones Urine Occult Blood Urine Nitrite Urine Bilirubin Urine Urobilinogen Ur Leukocyte Esterase Urine RBC Urine WBC Ur Squamous Epith Cells Urine Bacteria Hyaline Casts Urine Mucus 08/24/21 08/24/21 08/24/21 05:16 05:16 05:16 WBC RBC Hgb Hct MCV MCH MCHC RDW Std Deviation RDW Coeff of Jennifer Plt Count MPV Immature Gran % (Auto) Neut % (Auto) Lymph % (Auto) [place] % (Auto) Eos % (Auto) Baso % (Auto) Absolute Neuts (auto) Absolute Lymphs (auto) Nucleated RBC % Anisocytosis PT INR APTT 38.7 H Sodium Cancelled Potassium Cancelled Chloride Cancelled Carbon Dioxide Cancelled Anion Gap Cancelled BUN Cancelled Creatinine Cancelled Estim Creat Clear Calc Cancelled Est GFR (MDRD) Af Amer Cancelled Est GFR (MDRD) Non-Af Cancelled BUN/Creatinine Ratio Cancelled Glucose Cancelled Lactic Acid Calcium Cancelled Total Bilirubin Cancelled AST Cancelled ALT Cancelled Alkaline Phosphatase Cancelled Ammonia 35.0 H Troponin I High Sens Total Protein Cancelled Albumin Cancelled Globulin Cancelled Albumin/Globulin Ratio Cancelled Urine Color Urine Clarity Urine pH Ur Specific [place] Urine Protein Urine Glucose (UA) Urine Ketones Urine Occult Blood Urine Nitrite Urine Bilirubin Urine Urobilinogen Ur Leukocyte Esterase Urine RBC Urine WBC Ur Squamous Epith Cells Urine Bacteria Hyaline Casts Urine Mucus 08/24/21 08/24/21 05:16 06:10 WBC RBC Hgb Hct MCV MCH MCHC RDW Std Deviation RDW Coeff of Jennifer Plt Count MPV Immature Gran % (Auto) Neut % (Auto) Lymph % (Auto) [place] % (Auto) Eos % (Auto) Baso % (Auto) Absolute Neuts (auto) Absolute Lymphs (auto) Nucleated RBC % Anisocytosis PT INR APTT Sodium Potassium Chloride Carbon Dioxide Anion Gap BUN Creatinine Estim Creat Clear Calc Est GFR (MDRD) Af Amer Est GFR (MDRD) Non-Af BUN/Creatinine Ratio Glucose Lactic Acid 1.7 Calcium Total Bilirubin AST ALT Alkaline Phosphatase Ammonia Troponin I High Sens Total Protein Albumin Globulin Albumin/Globulin Ratio Urine Color Yellow Urine Clarity Clear Urine pH 5.0 Ur Specific [place] 1.025 Urine Protein 100 H Urine Glucose (UA) Normal Urine Ketones 5 H Urine Occult Blood 50 H Urine Nitrite Negative Urine Bilirubin Negative Urine Urobilinogen Normal Ur Leukocyte Esterase 25 H Urine RBC 0-5 SEEN Urine WBC 0-5 SEEN Ur Squamous Epith Cells 0 SEEN Urine Bacteria 1+ Hyaline Casts 0-5 SEEN Urine Mucus 0 SEEN Radiography Chest X-Ray - ED: 1 View, Read by ED Physician, Normal, Heart, Mediastinum, Bony Structures, No Acute Disease and Chronic Changes Diagnostic Testing: Radiology Impression Chest X-Ray 08/24/21 05:26 IMPRESSION: Stable possibly chronic lung markings. Pacemaker. Status post sternotomy cardiomegaly. Findings relatively stable compared to prior study. Electronically Signed: Britni Mccracken MD at 6:07 EDT Tel , Service support , Portable chest x-ray single view interpreted both by myself the radiologist shows chronic changes. There is a chronic density in his right lower lobe which could be atelectasis versus aspiration versus scarring. No significant change from prior EKG. He does have cardiomegaly. Has had a prior sternotomy. And a pacemaker on the right side of his chest. Rhythm Strip Rhythm Strip: Paced Rate: 71 Ectopy: None EKG Initial EKG: Attestation: I personally reviewed and interpreted this EKG as follows: Interpretation: No Acute Injury Pattern and Paced Comments: Paced with a rate of 71. Unchanged from prior. Prior EKG tracings: available for review Prior: Unchanged Discharge Plan Triage Chief Complaint: Shortness of Breath ED Provider: Shashank Hernandez Dx/Rx/DC Orders Clinical Impression: Acute alteration in mental status, History of heart valve replacement with mechanical valve, Delirium, Chronic renal insufficiency Prescriptions: No Action doxycycline hyclate 100 MG capsule 100 mg PO BID Qty: 180 RF: 3 ferrous sulfate 325 mg (65 mg iron) tablet 65 mg PO DINNER RF: 0 pantoprazole 40 mg tablet,delayed release (DR/EC) 40 tablet PO DAILY RF: 0 multivitamin with folic acid 1 TABLET tablet 2 tab PO DAILY RF: 0 allopurinol 100 MG tablet 100 mg PO DINNER RF: 0 calcitriol 0.25 MCG capsule 0.25 mg PO DINNER RF: 0 cyclobenzaprine 10 MG tablet 10 mg PO QHS RF: 0 carvedilol 3.125 mg tablet 3.125 mg PO BID RF: 0 tamsulosin 0.4 mg capsule 0.4 mg PO DINNER RF: 0 warfarin 6 mg tablet 6 mg PO DINNER RF: 0 Hold Instructions: Resume on 08/22/21. Do not resume unless told to do so by your primary care provider. cefdinir 300 mg capsule 300 mg PO BID Qty: 10 RF: 0 lactulose 20 gram packet 20 g PO BID Qty: 60 RF: 0 furosemide 20 mg tablet 20 mg PO DAILY Qty: 90 RF: 3 sodium bicarbonate 650 mg tablet 650 mg PO BID RF: 0 levothyroxine 75 mcg tablet 75 mcg PO DAILY Qty: 90 RF: 3 isosorbide mononitrate 30 mg tablet extended release 24 hr 30 mg PO DAILY Qty: 90 RF: 3 Primary Care Provider: Vinny Atkinson Referrals: Vinny Atkinson MD [Primary Care Provider] - Disposition Disposition: Acute Care Hospital [facility]
[2021-08-24 05:41] LABS: Absolute Lymphocyte Count 0.92 X10^3/uL (0.83-4.51); Absolute Neutrophil Count 7.5 X10^3/uL (2.0-7.7); Basophil# 0.05 X10^3/uL; Basophil% 0.5 % (0-1); Eosinophil# 0.22 X10^3/uL; Eosinophils% 2.3 % (0-5); Hematocrit 41.5 % (40-54); Lymphocyte # 0.92 X10^3/ul (0.83-4.51); Lymphocyte % 9.8 % (19-41); Mean Corp Hgb Conc 31.3 g/dL (32-36); Mean Corpuscular Hgb 33.1 pg (27.0-32.0); Mean Corpuscular Volume 105.6 fL (80-94); Mean Platelet Vol. 12.3 fl (6.2-12.0); Monocyte# 0.67 X10^3/uL; Monocyte% 7.1 % (0-10); NRBC Flagged by Analyzer 0 % (0-5); Neutrophil # 7.52 X10^3/uL (2.7-7.7); POSITIVE MORPHOLOGY YES; Platelet Count 120 K/mm3 (150-450); RBC Distribution Width CV 18.6 % (11.6-14.6); RBC Distribution Width SD 71.7 fl (35.1-43.9); Red Blood Count 3.93 M/mm3 (4.6-6.2); White Blood Count 9.4 K/mm3 (4.4-11.0)
[2021-08-24 05:46] LABS: International Normalized Ratio 1.8; Prothrombin Time (Protime)PT. 20.5 SECONDS (11.7-14.9)
[2021-08-24 05:49] LABS: Differential Indicated SCAN CRITERIA MET
[2021-08-24 05:55] LABS: Partial Thromboplast Time 38.7 Seconds (24.1-36.2)
[2021-08-24] MEDS: 0.9% Normal Saline 1,000 ML 999 ML IV (05:55)
[2021-08-24 05:59] LABS: Anisocytosis 2+
[2021-08-24 06:01] LABS: Lactic Acid 1.7 mmol/L (0.4-1.9)
[2021-08-24 06:02] LABS: ALB/GLOB Ratio 0.8 RATIO (0.9-2.4); AST(SGOT) 41 U/L (15-37); Alanine Aminotransfer ALT/SGPT 22 U/L (16-61); Albumin, Serum 3.5 g/dL (3.2-5.0); Alkaline Phosphatase 261 U/L (45-117); Anion Gap 9 (5-15); BUN 34 mg/dL (7-18); Calcium,Total 9.8 mg/dL (8.5-10.1); Chloride 109 mmol/L (98-107); Creatinine, Serum 2.42 mg/dL (0.70-1.30); EST Glomerular Filtration Rate 28 mL/min (>60); Est Glom Filt Rate - Afr Amer 34 mL/min (>60); Globulin 4.6 g/dL (2.2-4.2); Glucose 130 mg/dL (74-106); Protein, Total 8.1 g/dL (6.4-8.2); Sodium Level 144 mmol/L (136-145); Troponin-I HS 55 pg/mL (3.0-78.0)
[2021-08-24] MEDS: LORazepam 2 MG/ML Syringe 1 MG IV ×4 (06:08→23:18)
[2021-08-24 06:23] LABS: Mucous, Urine 0 SEEN /hpf (<or=2+); Squamous Epithelial Cells - UA 0 SEEN /hpf (0-5)
[2021-08-24 06:29] LABS: Color, Urine Yellow (Yellow); Glucose, Dipstick Normal (Normal); Ketone-Dipstick 5 mg/dl (Negative); Leukocyte Esterase-Dipstick 25 /ul (Negative); Nitrite-Dipstick Negative (Negative); Occult Blood-Urine 50 /ul (Negative); Protein-Dipstick 100 mg/dl (Negative); Specific Gravity, Urine 1.025 (1.002-1.030); Urine Bilirubin Dipstick Negative (Negative); Urine Clarity Clear (Clear); Urine Urobilinogen Normal (Normal)
[2021-08-24 06:48] LABS: Red Blood Cells-Urine 0-5 SEEN /hpf (0-5); White Blood Cells 0-5 SEEN /hpf (0-5)
[2021-08-24 06:49] LABS: Bacteria 1+ /hpf (None Seen); Hyaline Cast 0-5 SEEN /lpf (0-5)
--- NOTE | 2021-08-24 07:15 | NURSING ---
DR BARDSHAW FOR DR CHEN
--- NOTE | 2021-08-24 07:26 | NURSING ---
PCU AUGUSTINE DELIRIUM, MENTAL STATUS CHANGE OF UNCERTAIN CAUSES
--- NOTE | 2021-08-24 07:38 | CT_ITS ---
STUDY: CT BRAIN WITHOUT CONTRAST REASON FOR EXAM: Male, 71 years old. AMS RADIATION DOSAGE (If Supplied By Facility): CTDIvol = ( 44.99 ) mGy, DLP = ( 812.98 ) mGycm TECHNIQUE: Transaxial CT imaging of the brain was performed without administration of intravenous contrast material. Individualized dose optimization techniques were used for this CT. COMPARISON: 08/18/2021 FINDINGS: Normal soft tissue structures. Normal calvarium. Normal size ventricles and extra-axial spaces for the patient''s age. Normal white matter tracts of the cerebral hemispheres. Normal basal ganglia and thalami. Normal brainstem. Normal cerebellum. There is no intracranial hemorrhage. There are no findings of an acute ischemic infarction. There is mucoperiosteal inflammatory disease of the sphenoid sinuses consistent with mild chronic sinusitis. CT/Brain/Head without Contrast IMPRESSION: 1. No acute intracranial hemorrhage or mass effect. Electronically Signed: Jona Dowling MD ([place]) at 8:30 EDT , Service support ,
--- NOTE | 2021-08-24 07:47 | HP.PCM.HOS_ITS ---
HPI - General HPI Narrative CHRISTIAN RICHMOND, is a 71 M who presents with multiple comorbidities including recent hospitalization from 08/18-08/20 came to ER with similar condition of altered mental status, confusion for 1 day. During previous hospitalization patient was also admitted for altered mental status confusion but he was fine fo r 2 days before discharge on antibiotic cefdinir for pneumonia and lactulose. As per , she gave lactulose 1 time yesterday for fear of loose bowel movement. Denies any recent change including fever chills, burning micturition, new cough or respiratory illness. As per his , he was talking meaningless, incoherent last night. No vomiting diarrhea or GI bleed. No fall or head injury. Patient is on Coumadin and INR is subtherapeutic, 1.8 for mechanical aortic valve for which he had 3 surgeries for bacterial endocarditis. He also history of MRSA bacteremia in the past. [facility] Medical History Abnormal results of thyroid function studies Anemia Atrial flutter Bacterial endocarditis Benign essential hypertension Biventricular cardiac pacemaker in situ (~05/26/16) CAD (coronary artery disease) Cardiomyopathy in disease classified elsewhere 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, stage III (moderate) COVID-19 Diffuse large b-cell lymphoma, extranodal and solid organ sites GI bleed GI bleed Gout History of DVT (deep vein thrombosis) History of pacemaker History of rheumatic fever as a child Hypothyroidism (acquired) Infectious endocarditis MRSA (methicillin resistant Staphylococcus aureus) infection Non-rheumatic mitral regurgitation Non-rheumatic mitral valve stenosis Non-ST elevation (NSTEMI) myocardial infarction MIA (obstructive sleep apnea) Paroxysmal ventricular tachycardia Pure hypercholesterolemia Rheumatic aortic stenosis Rheumatic mitral insufficiency TIA (transient ischemic attack) (~11/19/15) Home Medications multivitamin with folic acid 2 tab PO DAILY 06/06/16 [History Last Taken 08/17/21] allopurinol 100 mg PO DINNER 08/29/17 [History Last Taken 08/17/21] calcitriol 0.25 mg PO DINNER 08/29/17 [History Last Taken 08/17/21] doxycycline hyclate 100 mg capsule 100 mg PO BID #180 cap 01/18/18 [Rx Last Taken 08/18/21] ferrous sulfate 325 mg (65 mg iron) tablet 65 mg PO DINNER tab 11/21/18 [History Last Taken 08/17/21] cyclobenzaprine 10 mg PO QHS 12/31/18 [History Last Taken 08/17/21] furosemide 20 mg tablet 20 mg PO DAILY #90 tab 01/27/21 [Rx Last Taken 08/18/21] sodium bicarbonate 650 mg tablet 650 mg PO BID tablet 03/01/21 [History Last Taken 08/18/21] levothyroxine 75 mcg tablet 75 mcg PO DAILY #90 tab 04/14/21 [Rx Last Taken 08/18/21] isosorbide mononitrate 30 mg tablet,extended release 24 hr 30 mg PO DAILY #90 tab 04/25/21 [Rx Last Taken 08/18/21] carvedilol 3.125 mg PO BID 05/19/21 [History Last Taken 08/18/21] tamsulosin 0.4 mg PO DINNER 05/19/21 [History Last Taken 08/17/21] warfarin 6 mg PO DINNER 06/28/21 [History Last Taken 08/17/21] pantoprazole 40 mg tablet,delayed release 40 tablet PO DAILY 08/02/21 [History Last Taken 08/18/21] cefdinir 300 mg PO BID #10 cap 08/20/21 [Rx Last Taken Unknown] lactulose 20 g PO BID #60 ea 08/20/21 [Rx Last Taken Unknown] Allergy/AdvReac Type Severity Reaction Status Date / Time No Known Allergies Allergy Verified 08/18/21 12:41 Family History Father CAD (coronary artery disease) CABG Brother CAD (coronary artery disease) CABG Mother Diabetes Sister Breast cancer Diabetes Sister Cancer breast Diabetes Surgical History dual chamber pacemaker implantation (~10/2010) History of aortic valve replacement (~08/2003) History of appendectomy History of atrioventricular chiquita ablation History of cholecystectomy History of evacuation of hematoma History of mechanical aortic valve replacement (~1986) History of mitral valve repair (~08/2003) Social History household members: spouse housing: house Smoking Status: Never smoker alcohol intake: never substance use type: does not use caffeine: No what type of physical activity do you participate in: weight training and other details: Nustep frequency: 3-4 times per week duration: 45-60 minutes/day seatbelt use: always do you feel safe at home: Yes ROS ROS Narrative ROS mainly obtained from does not show any change in bladder or bowel habit or cough, GI, chest pain. Patient gets intermittent tachypnea and then slow down in Etienne-Osorio pattern. Review of Systems ROS Unobtainable: due to encephalopathy and due to mental status Vital Signs Vital Signs Vital Signs: 08/24/21 05:04 08/24/21 05:15 08/24/21 05:18 Temperature 98.5 F 98.9 F Temperature Source Oral Oral Pulse Rate 78 70 Respiratory Rate 38 H 30 H Respiratory Effort Short of Breath Labored Respiratory Depth Shallow Respiratory Pattern Tachypnea Blood Pressure 177/83 H 171/79 H Blood Pressure Mean 114 109 Pulse Ox 98 98 Oxygen Delivery Method Room Air Nasal Cannula Nasal Cannula Oxygen Flow Rate (L/min) 2 2 08/24/21 05:37 08/24/21 05:38 08/24/21 05:52 Temperature Temperature Source Pulse Rate Respiratory Rate Respiratory Effort Respiratory Depth Respiratory Pattern Blood Pressure Blood Pressure Mean Pulse Ox Oxygen Delivery Method Nasal Cannula Nasal Cannula Nasal Cannula Oxygen Flow Rate (L/min) 2 2 2 08/24/21 06:10 08/24/21 06:38 08/24/21 07:00 Temperature 97.8 F 99.2 F H 99 F Temperature Source Temporal Temporal Temporal Pulse Rate 89 80 76 Respiratory Rate 23 H 20 H 28 H Respiratory Effort Respiratory Depth Respiratory Pattern Blood Pressure 198/76 H 108/82 H 123/98 H Blood Pressure Mean 116 90 106 Pulse Ox 96 98 Oxygen Delivery Method Nasal Cannula Oxygen Flow Rate (L/min) 2 08/24/21 07:22 Temperature 99 F Temperature Source Temporal Pulse Rate 74 Respiratory Rate 20 H Respiratory Effort Respiratory Depth Respiratory Pattern Blood Pressure 123/98 H Blood Pressure Mean 106 Pulse Ox Oxygen Delivery Method Oxygen Flow Rate (L/min) Weight Weight: 188 lb 7.924 oz Body Mass Index (BMI) 29.5 Physical Exam Narrative General: Confused, disoriented, incoherent, restless. HEENT: Atraumatic, PERRLA, EOMI, Normocephalic Oral: Oral mucosa is dry. No Gingival or Mucosal Lesions/ Ulcerations Neck: Supple, No JVD, Negative Carotid Bruits Lungs: Air entry equal in bilateral lung bases. No crepitation/rhonchi. Intermittent tachypnea and then hypopnea. Cardiovascular: Paced rhythm, Normal S1, Normal S2, aortic click sound. Prior midline cardiac surgical scar Abdomen: Bowel Sounds Present, Soft, Non Tender, Non-Distended. Midline abdominal surgical scar. : No renal angle tenderness. No suprapubic tenderness. Extremities: No edema, Capillary Refill Less than 3 Seconds Skin: No rashes, No breakdown Musculoskeletal: No Tenderness to Palpation of Joints or Extremities Neurological: Cranial nerves II-XII grossly intact, nonfocal exam Psych/Mental Status: Restless. Results Lab / Micro Data Result Diagrams: 08/24/21 05:16 08/24/21 05:16 Labs: Laboratory Results - last 24 hr 08/24/21 05:16: WBC 9.4, RBC 3.93 L, Hgb 13.0, Hct 41.5, MCV 105.6 H, MCH 33.1 H , MCHC 31.3 L, RDW Std Deviation 71.7 H, RDW Coeff of Jennifer 18.6 H, Plt Count 120 L, MPV 12.3 H, Immature Gran % (Auto) 0.300, Neut % (Auto) 80.0 H, Lymph % (Auto) 9.8 L, Ritchie % (Auto) 7.1, Eos % (Auto) 2.3, Baso % (Auto) 0.5, Absolute Neuts (auto) 7.5, Absolute Lymphs (auto) 0.92, Nucleated RBC % 0, Anisocytosis 2+ 08/24/21 05:16: Sodium 144, Potassium 4.0, Chloride 109 H, Carbon Dioxide 26.0, Anion Gap 9, BUN 34 H, Creatinine 2.42 H, Estim Creat Clear Calc 25.80, Est GFR (MDRD) Af Amer 34 L, Est GFR (MDRD) Non-Af 28 L, BUN/Creatinine Ratio 14.0, Glucose 130 H, Calcium 9.8, Total Bilirubin 2.80 H, AST 41 H, ALT 22, Alkaline Phosphatase 261 H, Troponin I High Sens 55, Total Protein 8.1, Albumin 3.5, Globulin 4.6 H, Albumin/Globulin Ratio 0.8 L 08/24/21 05:16: PT 20.5 H, INR 1.8 08/24/21 05:16: APTT 38.7 H 08/24/21 05:16: Sodium Cancelled, Potassium Cancelled, Chloride Cancelled, Carbon Dioxide Cancelled, Anion Gap Cancelled, BUN Cancelled, Creatinine Cancelled, Estim Creat Clear Calc Cancelled, Est GFR (MDRD) Af Amer Cancelled, Est GFR (MDRD) Non-Af Cancelled, BUN/Creatinine Ratio Cancelled, Glucose Cancelled, Calcium Cancelled, Total Bilirubin Cancelled, AST Cancelled, ALT Cancelled, Alkaline Phosphatase Cancelled, Total Protein Cancelled, Albumin Cancelled, Globulin Cancelled, Albumin/Globulin Ratio Cancelled 08/24/21 05:16: Ammonia 35.0 H 08/24/21 05:16: Lactic Acid 1.7 08/24/21 06:10: Urine Color Yellow, Urine Clarity Clear, Urine pH 5.0, Ur Specific Bricelyn 1.025, Urine Protein 100 H, Urine Glucose (UA) Normal, Urine Ketones 5 H, Urine Occult Blood 50 H, Urine Nitrite Negative, Urine Bilirubin Negative, Urine Urobilinogen Normal, Ur Leukocyte Esterase 25 H, Urine RBC 0-5 SEEN, Urine WBC 0-5 SEEN, Ur Squamous Epith Cells 0 SEEN, Urine Bacteria 1+, Hyaline Casts 0-5 SEEN, Urine Mucus 0 SEEN Micro: Microbiology 08/24/21 05:35 Interface Orders SARS-CoV-2 Antigen (Rapid) - Final Rhythm Strip Rhythm Strip: Paced Rate: 71 Ectopy: None Radiology Impression Chest X-Ray 08/24/21 05:26 IMPRESSION: Stable possibly chronic lung markings. Pacemaker. Status post sternotomy cardiomegaly. Findings relatively stable compared to prior study. Electronically Signed: Britni Mccracken MD at 6:07 EDT Tel , Service support , Assessment & Plan Assessment/Plan (1) Acute metabolic encephalopathy: PLAN: 1. Acute metabolic encephalopathy exact etiology unclear possible metabolic/nonadherence to lactulose/dehydration: Patient is being admitted in PCU. Started on IV fluid half-normal saline. Lactulose is started. Patient also has BUN elevation but is chronically elevated. Does not have fluid overload symptoms including leg swelling or pulmonary edema. CT head ordered. Patient previous CT head did not show any acute change. Sepsis work-up blood cu ltures x2 urine culture and respiratory panel including blood cultures x2 and urine culture ordered. UA is bland and patient is already on antibiotic cefdinir and doxycycline will continue it. 2) Recent diagnosis of acute hypoxic respiratory failure secondary to right lower lobe community-acquired pneumonia.: At that time urinary antigens were negative. Rapid Covid is negative. 3) history of AVR due to back to endocarditis x3, last one mechanical aortic valve prosthesis: INR is subtherapeutic. Continue Coumadin 6 mg 1 dose and then 4 mg daily. 4) CKD stage IIIb: Estimated creatinine is on baseline with BUN/creatinine 2.42. 5) hypothyroidism Continue Synthroid. 6) GERD Continue PPI. 7) BPH Continue Flomax. 8) history of atrial flutter, paroxysmal VT, DVT, history of rheumatic fever in childhood, nonrheumatic mitral regurgitation status post mitral valve repair and AVR status post dual-chamber pacemaker: Continue Coreg. 9) HTN: Currently his blood pressure is fluctuating because he is moving and restless. Continue Coreg, isosorbide. Hold Lasix as patient seems dehydrated. 10. Extensive comorbidities including hypothyroidism, mild coronary artery disease, diffuse large B-cell lymphoma: TSH tomorrow a.m. CODE STATUS: Full code. Same as the last one. Discussed with patient's .
[2021-08-24] MEDS: Haloperidol Lactate 5 MG/ML Vial 2 MG IV (09:36)
[2021-08-24] MEDS: proMETHazine 25 MG/ML Syringe 12.5 MG IM ×2 (09:37→10:24)
--- NOTE | 2021-08-24 10:09 | NURSING ---
ROOM 110
[2021-08-24 10:21] LABS: Bedside Glucose 133 mg/dL (70-110)
[2021-08-24] MEDS: Lactulose 20 GM/30 ML UDC PO (10:36)
--- NOTE | 2021-08-24 10:45 | ED.RN ---
pt's left approx 0845. pt originally in bed 7. decision was made to move pt to bed 5 for staff to monitor pt. pt was restless at 0700 when this RN took over care. previous RN stated that he had been restless and she gave a second dose of ativan prior to her going home. 2nd dose of ativan did not decrease pt's restlessness. multiple times pt was readjusted in bed, monitoring devices reapplied, blankets and gown re-adjusted. pt continued to be restless after he was moved to room 5. Dr. Chowdhury was consulted and new medications ordered verbally. approx 1000, pt appeared moved restless than before. Dr. Chowdhury again consulted and new orders were verbally given which included soft restraints. pt again medicated with minimal to no decrease in pt's restlessness. Dr. Chowdhury also gave verb order for Lactulose to be given rectally. at this time, no results from Lactulose.
--- NOTE | 2021-08-24 10:57 | ED.RN ---
PT CONTINUES TO BE AGITATED. PT THROWING LEGS OVER THE SIDE. MOVING SIDE TO SIDE. LACTULOSE ENEMA GIVEN PER DR AUGUSTINE GRAY. SITTER CURRENTLY AT BEDSIDE
--- NOTE | 2021-08-24 11:07 | ED.RN ---
PT CONTINUES TO HAVE INCREASED PERIODS OF APNEA. PT OXYGEN SATURATION DROPS TO 84 PERCENT. PERIODS OF APNEA LASTING 13 SECONDS. NONREBREATHER PLACED
--- NOTE | 2021-08-24 11:20 | ED.RN ---
IS BACK IN DEPARTMENT. CURRENTLY SITTING WITH PT. PT PLACED ON NONREBREATHER. AWARE. REQUESTS PT TO BE A FULL CODE
--- NOTE | 2021-08-24 12:35 | ED.RN ---
INFORMED ICU THAT WASACTING A SITTER AND HELPING TO KEEP PT CALM. NOT ALLOWED TO ICU PER ICU STAFF. VERBALIZES UNDERSTANDING
--- NOTE | 2021-08-24 12:50 | CON.PCM.CC_ITS ---
Assessment & Plan Assessment/Plan (1) Encephalopathy: PLAN: RECOMMENDATIONS: 1. Check TSH and obtain arterial blood gas. 2. Consider obtaining MRI brain. 3. The patient does not likely need lactulose, given that his ammonia is only mildly elevated. 4. Hold all sedating medications. 5. Start empiric antimicrobials for now. 6. Obtain neurology consultation. 7. If underlying seizure disorder is of concern, the patient may need to be transferred to a tertiary care facility. IMPRESSIONS: 1. Encephalopathy Unclear precipitating etiology. The patient's ammonia level was only mildly elevated, so this is likely not the culprit. Therefore, I do not feel that lactulose is acutely indicated. Will obtain an arterial blood gas and check TSH for now. Given that he is demonstrating a Inrtyh-Kofswn-rwqt respiratory pattern, MRI brain may need to be obtained. Cultures have been obtained and the patient has been placed on antimicrobials. The patient would likely benefit from being placed on noninvasive positive pressure ventilatory support with a backup rate. However, the patient cannot be restrained in the setting of BiPAP utilization. 2. 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 3. 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/hypothyroidism/GERD/history of atrial flutter Complicates care, management, recovery and prognosis. Continue home medications as indicated. This note was generated with [employer] dictation software. It may contain incorrect words, spelling, and punctuation that were not noted in checking the note before signing. HPI Consult Data Date of Consult: 08/25/21 HPI Narrative Reason for Consultation: Encephalopathy HPI Narrative: The patient is a 71-year-old male, with a history as outlined below, who presented to the emergency department on the morning of August 24 with altered mentation. History pertinent to the patient's hospitalization was obtained primarily via chart review, as the patient is too encephalopathic to provide any additional detail. The patient was just admitted to the hospital August 18 through August 20 after presenting with a cough, shortness of breath and confusion. The patient was treated with antimicrobials over concerns for aspiration pneumonia. He also received lactulose due to an elevated ammonia in the setting of [place]. 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 The patient was admitted to [facility] in May 2021 after he was transferred there from an outside hospital due to a syncopal episode. The patient had a negative tilt table test. Pacemaker interrogation was unremarkable. Echocardiogram revealed an ejection fraction of 55% with an RVSP of 47 mmHg. The patient was worked up as well for neurogenic causes. His EEG was normal. CT head showed no acute intracranial pathology. The patient could not undergo an MRI due to his pacemaker. Neurology recommended seizure precautions and follow-up in their seizure clinic. The suspicion for neurogenic causes was high due to a postictal state. On presentation to the emergency department, the patient was noted to be afebrile and hypertensive. He was notably tachypneic as well. Laboratory evaluation revealed no evidence of a leukocytosis. Platelet count was low at 120,000. Coagulation profile revealed an INR of 1.8. Chemistry profile was no table for a creatinine of 2.42. Total bili was increased to 2.8. Alkaline phosphatase was increased to 261. Ammonia was mildly elevated at 35. Urinalysis was largely unrevealing. CT head was unremarkable. FOR[facility]LY [facility], [facility] Medical History Abnormal results of thyroid function studies Anemia Atrial flutter Bacterial endocarditis Benign essential hypertension Biventricular cardiac pacemaker in situ (~05/26/16) CAD (coronary artery disease) Cardiomyopathy in disease classified elsewhere 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, stage III (moderate) COVID-19 Diffuse large b-cell lymphoma, extranodal and solid organ sites GI bleed GI bleed Gout History of DVT (deep vein thrombosis) History of pacemaker History of rheumatic fever as a child Hypothyroidism (acquired) Infectious endocarditis MRSA (methicillin resistant Staphylococcus aureus) infection Non-rheumatic mitral regurgitation Non-rheumatic mitral valve stenosis Non-ST elevation (NSTEMI) myocardial infarction MIA (obstructive sleep apnea) Paroxysmal ventricular tachycardia Pure hypercholesterolemia Rheumatic aortic stenosis Rheumatic mitral insufficiency TIA (transient ischemic attack) (~11/19/15) Home Medications multivitamin with folic acid 2 tab PO DAILY 06/06/16 [History Last Taken 08/17/21] allopurinol 100 mg PO DINNER 08/29/17 [History Last Taken 08/17/21] calcitriol 0.25 mg PO DINNER 08/29/17 [History Last Taken 08/17/21] ferrous sulfate 325 mg (65 mg iron) tablet 65 mg PO DINNER tab 11/21/18 [History Last Taken 08/17/21] cyclobenzaprine 10 mg PO QHS 12/31/18 [History Last Taken 08/17/21] furosemide 20 mg tablet 20 mg PO DAILY #90 tab 01/27/21 [Rx Last Taken 08/18/21] sodium bicarbonate 650 mg tablet 650 mg PO BID tablet 03/01/21 [History Last Taken 08/18/21] isosorbide mononitrate 30 mg tablet,extended release 24 hr 30 mg PO DAILY #90 tab 04/25/21 [Rx Last Taken 08/18/21] carvedilol 3.125 mg PO BID 05/19/21 [History Last Taken 08/18/21] tamsulosin 0.4 mg PO DINNER 05/19/21 [History Last Taken 08/17/21] warfarin 6 mg PO DINNER 06/28/21 [History Last Taken 08/17/21] pantoprazole 40 mg tablet,delayed release 40 tablet PO DAILY 08/02/21 [History Last Taken 08/18/21] cefdinir 300 mg PO BID #10 cap 08/20/21 [Rx Last Taken 08/23/21] doxycycline hyclate 100 mg PO BID 08/24/21 [History Last Taken Unknown] lactulose 20 g PO BID 08/24/21 [History Last Taken Unknown] levothyroxine 75 mcg PO DAILY 08/24/21 [History Last Taken Unknown] Allergy/AdvReac Type Severity Reaction Status Date / Time No Known Allergies Allergy Verified 08/18/21 12:41 Family History Father CAD (coronary artery disease) CABG Brother CAD (coronary artery disease) CABG Mother Diabetes Sister Breast cancer Diabetes Sister Cancer breast Diabetes Surgical History dual chamber pacemaker implantation (~10/2010) History of aortic valve replacement (~08/2003) History of appendectomy History of atrioventricular chiquita ablation History of cholecystectomy History of evacuation of hematoma History of mechanical aortic valve replacement (~1986) History of mitral valve repair (~08/2003) Social History household members: spouse housing: house Smoking Status: Never smoker alcohol intake: never substance use type: does not use caffeine: No what type of physical activity do you participate in: weight training and other details: Nustep frequency: 3-4 times per week duration: 45-60 minutes/day seatbelt use: always do you feel safe at home: Yes ROS Review of Systems ROS Unobtainable: due to encephalopathy Physical Exam Const General Appearance: uncooperative and lethargic Orientation / Consciousness: confused and disoriented Exam Limitations: altered mental status HEENT normocephalic and head/scalp atraumatic Eyes PERRL Neck supple General: trachea midline Chest inspection of chest normal Resp Resp Narrative: Etienne-Osorio respiratory pattern Auscultation: Negative for rales, rhonchi or wheezes Cardio regular rate and regular rhythm Heart Sounds: click GI normal to inspection, nondistended, normoactive bowel sounds Extremity no clubbing, cyanosis or edema Skin no rashes or lesions noted Neuro moves all extremities Psych Activity / Motor Behavior: restless Lab / Micro Data Result Diagrams: 08/25/21 04:45 08/25/21 04:45 Labs: Laboratory Results - last 24 hr 08/24/21 05:16: WBC 9.4, RBC 3.93 L, Hgb 13.0, Hct 41.5, MCV 105.6 H, MCH 33.1 H , MCHC 31.3 L, RDW Std Deviation 71.7 H, RDW Coeff of Jennifer 18.6 H, Plt Count 120 L, MPV 12.3 H, Immature Gran % (Auto) 0.300, Neut % (Auto) 80.0 H, Lymph % (Auto) 9.8 L, Morrison % (Auto) 7.1, Eos % (Auto) 2.3, Baso % (Auto) 0.5, Absolute Neuts (auto) 7.5, Absolute Lymphs (auto) 0.92, Nucleated RBC % 0, Anisocytosis 2+ 08/24/21 05:16: Sodium 144, Potassium 4.0, Chloride 109 H, Carbon Dioxide 26.0, Anion Gap 9, BUN 34 H, Creatinine 2.42 H, Estim Creat Clear Calc 25.80, Est GFR (MDRD) Af Amer 34 L, Est GFR (MDRD) Non-Af 28 L, BUN/Creatinine Ratio 14.0, Glucose 130 H, Calcium 9.8, Total Bilirubin 2.80 H, AST 41 H, ALT 22, Alkaline Phosphatase 261 H, Troponin I High Sens 55, Total Protein 8.1, Albumin 3.5, Globulin 4.6 H, Albumin/Globulin Ratio 0.8 L 08/24/21 05:16: PT 20.5 H, INR 1.8 08/24/21 05:16: APTT 38.7 H 08/24/21 05:16: Sodium Cancelled, Potassium Cancelled, Chloride Cancelled, Carbon Dioxide Cancelled, Anion Gap Cancelled, BUN Cancelled, Creatinine Cancelled, Estim Creat Clear Calc Cancelled, Est GFR (MDRD) Af Amer Cancelled, Est GFR (MDRD) Non-Af Cancelled, BUN/Creatinine Ratio Cancelled, Glucose Cancelled, Calcium Cancelled, Total Bilirubin Cancelled, AST Cancelled, ALT Cancelled, Alkaline Phosphatase Cancelled, Total Protein Cancelled, Albumin Cancelled, Globulin Cancelled, Albumin/Globulin Ratio Cancelled 08/24/21 05:16: Ammonia 35.0 H 08/24/21 05:16: Lactic Acid 1.7 08/24/21 05:16: Magnesium 2.0 08/24/21 06:10: Urine Color Yellow, Urine Clarity Clear, Urine pH 5.0, Ur Specific Ole[place] 1.025, Urine Protein 100 H, Urine Glucose (UA) Normal, Urine Ketones 5 H, Urine Occult Blood 50 H, Urine Nitrite Negative, Urine Bilirubin Negative, Urine Urobilinogen Normal, Ur Leukocyte Esterase 25 H, Urine RBC 0-5 SEEN, Urine WBC 0-5 SEEN, Ur Squamous Epith Cells 0 SEEN, Urine Bacteria 1+, Hyaline Casts 0-5 SEEN, Urine Mucus 0 SEEN 08/24/21 10:17: POC Glucose 133 H Micro: Microbiology 08/24/21 08:04 Mucosa - Other Respiratory Panel (PCR) - Final 08/24/21 05:35 Interface Orders SARS-CoV-2 Antigen (Rapid) - Final Rhythm Strip Rhythm Strip: Paced Rate: 71 Ectopy: None Radiology Impression Chest X-Ray 08/24/21 05:26 IMPRESSION: Stable possibly chronic lung markings. Pacemaker. Status post sternotomy cardiomegaly. Findings relatively stable compared to prior study. Electronically Signed: Britni Mccracken MD at 6:07 EDT Tel , Service support , Brain CT 08/24/21 07:38 IMPRESSION: 1. No acute intracranial hemorrhage or mass effect. Electronically Signed: Jona Dowling MD ([place]) at 8:30 EDT , Service support , Charges/Coding Visit Charges Inpatient E&M: 90204 Init Hosp L3
[2021-08-24 13:25] LABS: Allen Test Positive; Base Excess -4 mmol/L (-2 to +2); Bicarbonate 20.7 mmol/L (22-26); Blood Gas Specimen Type ART; O2 Delivery Device Cannula; PO2 73 mmHG (75-100); SITE L Radial; SO2 95 % (95-99); Total Carbon Dioxide 22 mmol/L; pCO2 30.7 mmHg (35-45); pH 7.44 (7.35-7.45)
[2021-08-24] MEDS: Ceftriaxone 1 GM/50 ML BAG IV (13:26)
[2021-08-24] MEDS: 0.45% Normal Saline 1,000 ML 100 ML IV (13:48)
[2021-08-24 14:31] LABS: Thyroid Stim Hormone (TSH) 2.02 uIU/mL (0.358-3.74)
--- NOTE | 2021-08-24 14:53 | TELEMED_ITS ---
[facility] Telemed has confirmed receipt of a request for visit. This document confirms receipt of the order initiating the consult. To find the results of the consultation, please view the patient's reports for the scanned Telemed Consult.
--- NOTE | 2021-08-24 15:40 | CASEMGMT ---
Social Work Pt has a HCPOA on file naming his Bre Amador. Document in the EMR. No living will on file. ELAYNE Low
--- NOTE | 2021-08-24 15:49 | CASEMGMT ---
Social Work Pt does have a living will and health care POA naming his Bre Amador. Documents printed from EMR and placed on pt chart. ELAYNE Low
[2021-08-25] VITALS (30 sets, daily range): BP systolic 140–179; BP diastolic 47–87; PULSE 70–82; RESP 24–40; TEMP 35.7–37.8; O2SAT 93–99
[2021-08-25] MEDS: Enoxaparin 30 MG/0.3 ML Syringe SC (01:48)
[2021-08-25] MEDS: Acetaminophen 650 MG Suppository RC (01:49)
[2021-08-25] MEDS: hydrALAZINE 20 MG/ML Vial 10 MG IV ×3 (04:42→13:34)
[2021-08-25 05:32] LABS: Absolute Lymphocyte Count 1.33 X10^3/uL (0.83-4.51); Absolute Neutrophil Count 9.9 X10^3/uL (2.0-7.7); Basophil# 0.05 X10^3/uL; Basophil% 0.4 % (0-1); Hemoglobin 12.7 g/dL (13.0-16.5); Lymphocyte # 1.33 X10^3/ul (0.83-4.51); Lymphocyte % 10.5 % (19-41); Mean Corpuscular Hgb 33.4 pg (27.0-32.0); Mean Corpuscular Volume 107.9 fL (80-94); Mean Platelet Vol. 12.8 fl (6.2-12.0); Monocyte# 1.33 X10^3/uL; Monocyte% 10.5 % (0-10); NRBC Flagged by Analyzer 0 % (0-5); Neutrophil % 77.9 % (47-70); POSITIVE MORPHOLOGY YES; Platelet Count 102 K/mm3 (150-450); RBC Distribution Width SD 74.6 fl (35.1-43.9); White Blood Count 12.7 K/mm3 (4.4-11.0)
[2021-08-25 05:41] LABS: International Normalized Ratio 2.4; Prothrombin Time (Protime)PT. 25.1 SECONDS (11.7-14.9)
[2021-08-25 05:47] LABS: Differential Indicated SCAN CRITERIA MET
[2021-08-25 06:23] LABS: Anion Gap 13 (5-15); BUN 46 mg/dL (7-18); BUN/Creat Ratio 14.6 RATIO (10-20); Calcium,Total 9.6 mg/dL (8.5-10.1); Chloride 111 mmol/L (98-107); Creatinine, Serum 3.14 mg/dL (0.70-1.30); EST Glomerular Filtration Rate 21 mL/min (>60); Est Glom Filt Rate - Afr Amer 25 mL/min (>60); Estimated Creatinine Clearance 19.19 ml/min; Glucose 69 mg/dL (74-106); Phosphorus 4.4 mg/dL (2.5-4.9); Sodium Level 143 mmol/L (136-145)
--- NOTE | 2021-08-25 07:06 | PCM.PN.INT ---
Assessment & Plan Assessment/Plan (1) Encephalopathy: PLAN: RECOMMENDATIONS: 1. Wean supplemental oxygen to maintain saturations at or above 90%. 2. Maintain seizure precautions and obtain EEG. 3. Recheck liver function and ammonia. 4. Start D5W given hypoglycemia noted on morning labs. 5. Continue antimicrobials. IMPRESSIONS: 1. Encephalopathy Unclear precipitating etiology. Metabolic work-up has been unrevealing. CT head was unremarkable. The patient is unable to undergo an MRI brain due to his underlying cardiac device. He does have a history of recent hospitalization in May at [facility], for which an underlying seizure disorder was being considered. Although infection is a possibility, cultures have been obtained and the patient has been placed on empiric antimicrobials. Arterial blood gas was within normal limits. Will recheck his hepatic function profile and ammonia level this morning. However, given our lack of neurology coverage and inability to perform continuous EEG monitoring, the patient would likely best be served at a tertiary care facility. 2. Acute hypoxemic respiratory failure Potentially related to an aspiration event versus a primary neurological phenomenon. The patient will be continued on supplemental oxygen to maintain saturations at or above 90%. He has already been previously initiated on antibiotics. 3. 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 4. 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/hypothyroidism/GERD/history of atrial flutter Complicates care, management, recovery and prognosis. Continue home medications as indicated. This note was generated with [employer] dictation software. It may contain incorrect words, spelling, and punctuation that were not noted in checking the note before signing. Subjective Subjective The patient was seen and examined at the bedside this morning. Events from the last 24 hours have been reviewed. The patient is currently afebrile, hemodynamically stable and maintaining appropriate oxygen saturations on 15 L/min via nasal cannula. The patient remains significantly confused and agitated. Due to the fact that he was requiring restraints, he was not able to be placed on any form of noninvasive positive pressure ventilatory support last night. The patient does not have an MRI safe cardiac device in place. Therefore, additional head imaging could not be obtained yesterday. Creatinine has worsened this morning to 3.14. Bicarbonate is low at 19 and BUN is elevated to 46. Glucose is low at 69. Objective Data Objective Data The patient's most recent lab work, culture data and imaging studies have all been personally reviewed. Vital Signs: Vital Signs Temp Pulse Resp BP Pulse Ox 99.7 F H 73 36 H 172/53 H 99 08/25/21 04:00 08/25/21 07:00 08/25/21 07:00 08/25/21 07:00 08/25/21 07:00 Oxygen Flow Rate (L/min) 15 Oxygen Delivery Method Nasal Cannula Weight: 83 kg Body Mass Index (BMI) 28.5 Intake & Output: Intake and Output for Last 24 Hours 08/23/21 08/24/21 08/25/21 23:59 23:59 23:59 Intake Total 2290 / 2290 Balance 2290 / 2290 Lab / Micro Data Attestation: I reviewed the patient's lab results. Result Diagrams: 08/25/21 04:45 08/25/21 04:45 Labs: Laboratory Results - last 24 hr 08/24/21 05:16: Magnesium 2.0 08/24/21 05:16: TSH 2.02 08/24/21 10:17: POC Glucose 133 H 08/25/21 04:45: Sodium 143, Potassium 5.0, Chloride 111 H, Carbon Dioxide 19.0 L, Anion Gap 13, BUN 46 H, Creatinine 3.14 H, Estim Creat Clear Calc 19.19, Est GFR (MDRD) Af Amer 25 L, Est GFR (MDRD) Non-Af 21 L, BUN/Creatinine Ratio 14.6, Glucose 69 L, Calcium 9.6, Phosphorus 4.4, TSH 1.00 08/25/21 04:45: WBC 12.7 H, RBC 3.80 L, Hgb 12.7 L, Hct 41.0, MCV 107.9 H, MCH 33.4 H, MCHC 31.0 L, RDW Std Deviation 74.6 H, RDW Coeff of Jennifer 19.0 H, Plt Count 102 L, MPV 12.8 H, Immature Gran % (Auto) 0.700, Neut % (Auto) 77.9 H, Lymph % (Auto) 10.5 L, [place] % (Auto) 10.5 H, Eos % (Auto) 0.0, Baso % (Auto) 0.4, Absolute Neuts (auto) 9.9 H, Absolute Lymphs (auto) 1.33, Nucleated RBC % 0 08/25/21 04:45: PT 25.1 H, INR 2.4 Micro: Microbiology 08/24/21 08:04 Mucosa - Other Respiratory Panel (PCR) - Final 08/24/21 05:35 Interface Orders SARS-CoV-2 Antigen (Rapid) - Final ABG Data ABG results: ABG 08/24/21 13:18 Specimen Type ART Sample Site L Radial pH 7.44 Bicarbonate Actual 20.7 L Total CO2 22 Base Excess -4 L O2 Saturation 95 ABG pCO2 30.7 L ABG pO2 73 L German Test Positive O2 Delivery Device Cannula Liter Flow 3.0 Radiography Diagnostic Testing: Radiology Impression Brain CT 08/24/21 07:38 IMPRESSION: 1. No acute intracranial hemorrhage or mass effect. Electronically Signed: Jona Dowling MD (Brooks) at 8:30 EDT , Service support , Rhythm Strip Rhythm Strip: Paced Rate: 71 Ectopy: None Physical Exam Const General Appearance: uncooperative and lethargic Orientation / Consciousness: confused and disoriented Exam Limitations: altered mental status HEENT normocephalic and head/scalp atraumatic Eyes PERRL Neck supple General: trachea midline Chest inspection of chest normal Resp Resp Narrative: Etienne-Osorio respiratory pattern Auscultation: Negative for rales, rhonchi or wheezes Cardio regular rate and regular rhythm Heart Sounds: click GI normal to inspection, nondistended, normoactive bowel sounds Extremity no clubbing, cyanosis or edema Skin no rashes or lesions noted Neuro moves all extremities Psych Activity / Motor Behavior: restless Charges/Coding Visit Charges Inpatient E&M: 94856 Subs Hosp L3
[2021-08-25 07:19] LABS: Anisocytosis 1+; Differential Comment SCANNED; Macrocytosis 1+; Polychromasia RARE
[2021-08-25 08:00] LABS: AST(SGOT) 168 U/L (15-37); Alanine Aminotransfer ALT/SGPT 68 U/L (16-61); Albumin, Serum 3.4 g/dL (3.2-5.0); Alkaline Phosphatase 224 U/L (45-117); Bilirubin, Direct 2.38 mg/dL (0.00-0.30); Globulin 4.2 g/dL (2.2-4.2); Protein, Total 7.6 g/dL (6.4-8.2)
[2021-08-25] MEDS: 0.9% Saline Lock 10 ML Syringe IV ×3 (08:22→20:00)
--- NOTE | 2021-08-25 08:34 | PCM.PN.HOSP ---
Subjective Subjective There is no improvement in the patient mental status. Patient is still Agitated, restless, not comprehensive or communicative. Discussed with the research program assistant and prefers to Transfer to tertiary care for inpatient neurology evaluation and EEG monitoring. I talked to the patient's over the phone and she agreed for transfer to [facility]. Objective Data Objective Data Vital Signs: Vital Signs Temp Pulse Resp BP Pulse Ox 99.7 F H 73 36 H 170/65 H 99 08/25/21 04:00 08/25/21 08:21 08/25/21 07:00 08/25/21 08:21 08/25/21 07:00 Oxygen Flow Rate (L/min) 15 Oxygen Delivery Method Nasal Cannula Weight: 182 lb 15.739 oz Body Mass Index (BMI) 28.5 Intake & Output: Intake and Output for Last 24 Hours 08/23/21 08/24/21 08/25/21 23:59 23:59 23:59 Intake Total 2290 / 2290 Balance 2290 / 2290 Lab / Micro Data Result Diagrams: 08/25/21 04:45 08/25/21 04:45 Labs: Laboratory Results - last 24 hr 08/24/21 05:16: Magnesium 2.0 08/24/21 05:16: TSH 2.02 08/24/21 10:17: POC Glucose 133 H 08/25/21 04:45: Sodium 143, Potassium 5.0, Chloride 111 H, Carbon Dioxide 19.0 L, Anion Gap 13, BUN 46 H, Creatinine 3.14 H, Estim Creat Clear Calc 19.19, Est GFR (MDRD) Af Amer 25 L, Est GFR (MDRD) Non-Af 21 L, BUN/Creatinine Ratio 14.6, Glucose 69 L, Calcium 9.6, Phosphorus 4.4, TSH 1.00 08/25/21 04:45: WBC 12.7 H, RBC 3.80 L, Hgb 12.7 L, Hct 41.0, MCV 107.9 H, MCH 33.4 H, MCHC 31.0 L, RDW Std Deviation 74.6 H, RDW Coeff of Jennifer 19.0 H, Plt Count 102 L, MPV 12.8 H, Immature Gran % (Auto) 0.700, Neut % (Auto) 77.9 H, Lymph % (Auto) 10.5 L, [place] % (Auto) 10.5 H, Eos % (Auto) 0.0, Baso % (Auto) 0.4, Absolute Neuts (auto) 9.9 H, Absolute Lymphs (auto) 1.33, Nucleated RBC % 0, Differential Comment SCANNED, Polychromasia RARE, Anisocytosis 1+, Macrocytosis 1+ 08/25/21 04:45: PT 25.1 H, INR 2.4 08/25/21 04:45: Total Bilirubin 4.70 H, Direct Bilirubin 2.38 H, AST 168 H, ALT 68 H, Alkaline Phosphatase 224 H, Total Protein 7.6, Albumin 3.4, Globulin 4.2 08/25/21 07:50: Ammonia 53.0 H Micro: Microbiology 08/24/21 08:04 Mucosa - Other Respiratory Panel (PCR) - Final 08/24/21 05:35 Interface Orders SARS-CoV-2 Antigen (Rapid) - Final ABG Data ABG results: ABG 08/24/21 13:18 Specimen Type ART Sample Site L Radial pH 7.44 Bicarbonate Actual 20.7 L Total CO2 22 Base Excess -4 L O2 Saturation 95 ABG pCO2 30.7 L ABG pO2 73 L German Test Positive O2 Delivery Device Cannula Liter Flow 3.0 Rhythm Strip Rhythm Strip: Paced Rate: 71 Ectopy: None Physical Exam Narrative General: Confused, disoriented, incoherent, restless.Noncommunicative. HEENT: Atraumatic, PERRLA, EOMI, Normocephalic Oral: Oral mucosa is dry. No Gingival or Mucosal Lesions/ Ulcerations Neck: Supple, No JVD, Negative Carotid Bruits Lungs: Air entry equal in bilateral lung bases. No crepitation/rhonchi. Intermittent tachypnea and then hypopnea. Cardiovascular: Paced rhythm, Normal S1, Normal S2, aortic click sound. Prior midline cardiac surgical scar Abdomen: Bowel Sounds Present, Soft, Non Tender, Non-Distended. Midline abdominal surgical scar. : No renal angle tenderness. No suprapubic tenderness. Extremities: No edema, Capillary Refill Less than 3 Seconds Skin: No rashes, No breakdown Musculoskeletal: No Tenderness to Palpation of Joints or Extremities Neurological: Cranial nerves II-XII grossly intact, nonfocal exam Psych/Mental Status: Restless. Assessment & Plan Assessment/Plan (1) Acute metabolic encephalopathy: PLAN: 1. Acute metabolic encephalopathy exact etiology unclear possible metabolic/nonadherence to lactulose/dehydration: Patient is being admitted in PCU. Started on IV fluid half-normal saline. Lactulose is started. Patient also has BUN elevation but is chronically elevated. Does not have fluid overload symptoms including leg swelling or pulmonary edema. CT head ordered. Patient previous CT head did not show any acute change. Sepsis work-up blood cultures x2 urine culture and respiratory panel including blood cultures x2 and urine culture ordered. UA is bland and patient is already on antibiotic Ceftriaxone and home Chronic prophylactic doxycycline for MRSA. 10: Ammonia level is not diagnostic of change in the mental status.Ammonia level 56, 35 and 53.Elevated direct hyperkalemia, alkaline phosphatase and transaminases, right upper quadrant sonogram is ordered.I talked to the patient's and she preferred [facility] but they do not have bed. I further called [facility] transfer line and exchanged the clinical information with funds transfer clerk and she has put in the prior left wrist. I further said she does not require neuro ICU care as per now. 2) Recent diagnosis of acute hypoxic respiratory failure secondary to right lower lobe community-acquired pneumonia.: At that time urinary antigens were negative. Rapid Covid is negative. 3) history of AVR due to back to endocarditis x3, last one mechanical aortic valve prosthesis: INR is subtherapeutic. 08/25: INR is therapeutic. Started on IV heparin drip. DC Lovenox. 4) TIEN ON CKD stage STAGE 3b: Estimated creatinine is on baseline with BUN/creatinine 2.42.BUN/creatinine elevated 46/3.14. May be related to the fluid status. 5) hypothyroidism Continue Synthroid. 6) GERD Continue PPI. 7) BPH Continue Flomax. 8) history of atrial flutter, paroxysmal VT, DVT, history of rheumatic fever in childhood, nonrheumatic mitral regurgitation status post mitral valve repair and AVR status post dual-chamber pacemaker: Continue Coreg. 9) HTN: Currently his blood pressure is fluctuating because he is moving and restless. Continue Coreg, isosorbide. Hold Lasix as patient seems dehydrated. 10. Extensive comorbidities including hypothyroidism, mild coronary artery disease, diffuse large B-cell lymphoma: TSH tomorrow a.m. CODE STATUS: Full code. Same as the last one. Discussed with patient's . Charges/Coding Visit Charges Inpatient E&M: 58597 Subs Hosp L3
--- NOTE | 2021-08-25 08:49 | US_ITS ---
HISTORY: Abnormal labs. TECHNIQUE: Farah scale and color Doppler imaging was performed of the right upper quadrant. Number of images including paperwork: 74. COMPARISON: 08/03/2021. FINDINGS: LIVER: 17.3 cm in length. Mildly heterogeneous echotexture with a lobulated contour. No intrahepatic biliary ductal dilation. CBD: 4 mm in diameter, nondilated. GALLBLADDER: Surgically absent. PANCREAS: Not well-visualized due to overlying bowel gas. RIGHT KIDNEY: 10.5 cm in length with a cortical thickness of 8 mm. No hydronephrosis. 3.7 x 3.8 x 3.7 cm cyst in the lower pole. OTHER: Right pleural effusion identified. US/Abdomen Limited IMPRESSION: Mild hepatomegaly. Echogenic liver from hepatic steatosis or hepatocellular disease with a lobulated contour, raising the possibility of cirrhosis. Right pleural effusion. Cholecystectomy. 3.7 cm right renal cyst. at 1137 Reported and signed by: Renea Baig MD Electronically Signed: Renea Baig MD at 11:36 EDT Tel , Service support ,
[2021-08-25 09:30] LABS: GGTP 192 U/L (15-85)
[2021-08-25] MEDS: Ceftriaxone 1 GM/50 ML BAG IV (10:19)
[2021-08-25] MEDS: HEPARIN/D5w 25,000 UNITS 25,000 UNITS/250 ML IV.SOLN. 10 UNITS IV (10:30)
[2021-08-25 11:05] LABS: Partial Thromboplast Time 47.3 Seconds (24.1-36.2)
--- NOTE | 2021-08-25 14:42 | PCM.CONS.R ---
Assessment & Plan Assessment/Plan (1) Chronic renal insufficiency: (2) TIEN (acute kidney injury): PLAN: On review office chart, it seems she has CKD stage IIIB. Baseline creatinine is around 1.8-2.0. Now creatinine is higher. Bladder scan showed somewhat elevated residual. May need straight catheter. Could be volume depletion related. Other events include cirrhosis, elevated ammonia. No acute indications for dialysis Possible transfer to [facility] later today. Right upper quadrant ultrasound shows no hydronephrosis of right kidney HPI Consult Data Date of Consult: 08/25/21 HPI Narrative HPI Narrative: CHRISTIAN RICHMOND, is a 71 M who presents To the hospital with complaints of altered mental status. Nephrology consultation due to acute on chronic renal failure. Patient is currently poorly responsive. Most of the history is obtained from the charts. He has known history of aortic valve replacement due to endocarditis. Was admitted at [facility] in May due to suspected seizures. Had extensive testing. He also has what seems like cirrhosis. Bilirubin is high. Upper quadrant ultrasound shows cirrhosis morphology. As per staff, he had some postvoid residual. May need straight catheter or Sheikh catheter. [facility] Medical History Abnormal results of thyroid function studies Anemia Atrial flutter Bacterial endocarditis Benign essential hypertension Biventricular cardiac pacemaker in situ (~05/26/16) CAD (coronary artery disease) Cardiomyopathy in disease classified elsewhere 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, stage III (moderate) COVID-19 Diffuse large b-cell lymphoma, extranodal and solid organ sites GI bleed GI bleed Gout History of DVT (deep vein thrombosis) History of pacemaker History of rheumatic fever as a child Hypothyroidism (acquired) Infectious endocarditis MRSA (methicillin resistant Staphylococcus aureus) infection Non-rheumatic mitral regurgitation Non-rheumatic mitral valve stenosis Non-ST elevation (NSTEMI) myocardial infarction MIA (obstructive sleep apnea) Paroxysmal ventricular tachycardia Pure hypercholesterolemia Rheumatic aortic stenosis Rheumatic mitral insufficiency TIA (transient ischemic attack) (~11/19/15) Home Medications multivitamin with folic acid 2 tab PO DAILY 06/06/16 [History Last Taken 08/17/21] allopurinol 100 mg PO DINNER 08/29/17 [History Last Taken 08/17/21] calcitriol 0.25 mg PO DINNER 08/29/17 [History Last Taken 08/17/21] ferrous sulfate 325 mg (65 mg iron) tablet 65 mg PO DINNER tab 11/21/18 [History Last Taken 08/17/21] cyclobenzaprine 10 mg PO QHS 12/31/18 [History Last Taken 08/17/21] furosemide 20 mg tablet 20 mg PO DAILY #90 tab 01/27/21 [Rx Last Taken 08/18/21] sodium bicarbonate 650 mg tablet 650 mg PO BID tablet 03/01/21 [History Last Taken 08/18/21] isosorbide mononitrate 30 mg tablet,extended release 24 hr 30 mg PO DAILY #90 tab 04/25/21 [Rx Last Taken 08/18/21] carvedilol 3.125 mg PO BID 05/19/21 [History Last Taken 08/18/21] tamsulosin 0.4 mg PO DINNER 05/19/21 [History Last Taken 08/17/21] warfarin 6 mg PO DINNER 06/28/21 [History Last Taken 08/17/21] pantoprazole 40 mg tablet,delayed release 40 tablet PO DAILY 08/02/21 [History Last Taken 08/18/21] cefdinir 300 mg PO BID #10 cap 08/20/21 [Rx Last Taken 08/23/21] doxycycline hyclate 100 mg PO BID 08/24/21 [History Last Taken Unknown] lactulose 20 g PO BID 08/24/21 [History Last Taken Unknown] levothyroxine 75 mcg PO DAILY 08/24/21 [History Last Taken Unknown] Allergy/AdvReac Type Severity Reaction Status Date / Time No Known Allergies Allergy Verified 08/18/21 12:41 Family History Father CAD (coronary artery disease) CABG Brother CAD (coronary artery disease) CABG Mother Diabetes Sister Breast cancer Diabetes Sister Cancer breast Diabetes Surgical History dual chamber pacemaker implantation (~10/2010) History of aortic valve replacement (~08/2003) History of appendectomy History of atrioventricular chiquita ablation History of cholecystectomy History of evacuation of hematoma History of mechanical aortic valve replacement (~1986) History of mitral valve repair (~08/2003) Social History household members: spouse housing: house Smoking Status: Never smoker alcohol intake: never substance use type: does not use caffeine: No what type of physical activity do you participate in: weight training and other details: Nustep frequency: 3-4 times per week duration: 45-60 minutes/day seatbelt use: always do you feel safe at home: Yes ROS ROS Narrative Unable to be obtained due to mental status Physical Exam Narrative sleepy no obvious distress no pallor no icterus no JVD s1s2 no murmurs lungs clear abdomen soft no organomegaly no edema no cyanosis Lab / Micro Data Result Diagrams: 08/25/21 04:45 08/25/21 04:45 Labs: Laboratory Results - last 24 hr 08/25/21 04:45: Sodium 143, Potassium 5.0, Chloride 111 H, Carbon Dioxide 19.0 L, Anion Gap 13, BUN 46 H, Creatinine 3.14 H, Estim Creat Clear Calc 19.19, Est GFR (MDRD) Af Amer 25 L, Est GFR (MDRD) Non-Af 21 L, BUN/Creatinine Ratio 14.6, Glucose 69 L, Calcium 9.6, Phosphorus 4.4, TSH 1.00 08/25/21 04:45: WBC 12.7 H, RBC 3.80 L, Hgb 12.7 L, Hct 41.0, MCV 107.9 H, MCH 33.4 H, MCHC 31.0 L, RDW Std Deviation 74.6 H, RDW Coeff of Jennifer 19.0 H, Plt Count 102 L, MPV 12.8 H, Immature Gran % (Auto) 0.700, Neut % (Auto) 77.9 H, Lymph % (Auto) 10.5 L, [place] % (Auto) 10.5 H, Eos % (Auto) 0.0, Baso % (Auto) 0.4, Absolute Neuts (auto) 9.9 H, Absolute Lymphs (auto) 1.33, Nucleated RBC % 0, Differential Comment SCANNED, Polychromasia RARE, Anisocytosis 1+, Macrocytosis 1+ 08/25/21 04:45: PT 25.1 H, INR 2.4 08/25/21 04:45: Total Bilirubin 4.70 H, Direct Bilirubin 2.38 H, AST 168 H, ALT 68 H, Alkaline Phosphatase 224 H, Total Protein 7.6, Albumin 3.4, Globulin 4.2 08/25/21 04:45: GGT 192 H 08/25/21 07:50: Ammonia 53.0 H 08/25/21 10:30: APTT 47.3 H Micro: Microbiology 08/24/21 06:10 Urine, Catheterized Urine Culture - Preliminary Culture exhibits no growth. 08/24/21 08:04 Mucosa - Other Respiratory Panel (PCR) - Final Rhythm Strip Rhythm Strip: Paced Rate: 71 Ectopy: None Radiology Impression Abdomen Ultrasound 08/25/21 08:49 IMPRESSION: Mild hepatomegaly. Echogenic liver from hepatic steatosis or hepatocellular disease with a lobulated contour, raising the possibility of cirrhosis. Right pleural effusion. Cholecystectomy. 3.7 cm right renal cyst. at 1137 Reported and signed by: Renea Baig MD Electronically Signed: Renea Baig MD at 11:36 EDT Tel , Service support ,
--- NOTE | 2021-08-25 15:37 | CT_ITS ---
HISTORY: AMS. TECHNIQUE: Multiple axial images were obtained of the brain without intravenous contrast. A radiation dose optimization technique was used for this scan. # of images incl. paperwork: 248. COMPARISON: 08/24/2021. FINDINGS: BRAIN PARENCHYMA:Multiple small foci and zones of low attenuation in the cerebral white matter most compatible with chronic small vessel ischemic gliosis. INTRACRANIAL HEMORRHAGE: No acute intracranial hemorrhage. CSF SPACES/MASS EFFECT: Diffuse atrophy with compensatory ventricular enlargement. No midline shift or other significant mass effect. ORBITS: Unremarkable. CALVARIUM: Intact. PARANASAL SINUSES AND MASTOID AIR CELLS: Fluid and mucosal thickening in the sphenoid sinus. CT/Brain/Head without Contrast IMPRESSION: No acute intracranial process identified. Chronic small vessel ischemic gliosis. Sphenoid sinusitis. Individualized dose optimization techniques were used for this CT. at 1645 Reported and signed by: Renea Baig MD Electronically Signed: Renea Baig MD at 16:44 EDT Tel , Service support ,
[2021-08-25 17:15] LABS: Partial Thromboplast Time 207.6 Seconds (24.1-36.2)
--- NOTE | 2021-08-25 17:57 | NURSING ---
PANDEMIC CHARTING 08/25/2021 0700
--- NOTE | 2021-08-25 17:59 | NURSING ---
PANDEMIC CHARTING 08/24/2021 0783
[2021-08-25] MEDS: Lactulose 20 GM/30 ML UDC 200 GM RC (18:34)
[2021-08-25 21:40] LABS: Bedside Glucose 92 mg/dL (70-110)
[2021-08-26] VITALS (17 sets, daily range): BP systolic 108–165; BP diastolic 48–92; PULSE 70–74; RESP 13–31; TEMP 34.7–36.1; O2SAT 93–100
[2021-08-26 02:25] LABS: Partial Thromboplast Time 104.2 Seconds (24.1-36.2)
--- NOTE | 2021-08-26 07:23 | PCM.PN.INT ---
Assessment & Plan Assessment/Plan (1) Encephalopathy: PLAN: RECOMMENDATIONS: 1. Wean supplemental oxygen to maintain saturations at or above 90%. 2. Maintain seizure precautions and Keppra as ordered. 3. Continue empiric antimicrobials. 4. Continue D5W, given n.p.o. status. 5. Awaiting bed availability at [facility] for transfer. 6. The patient is medically stable for transfer out of the intensive care unit. IMPRESSIONS: 1. Encephalopathy Unclear precipitating etiology. Metabolic work-up has been unrevealing. CT head was unremarkable. The patient is unable to undergo an MRI brain due to his underlying cardiac device. He does have a history of recent hospitalization in May at [facility], for which an underlying seizure disorder was being considered. Although infection is a possibility, cultures have been obtained and the patient has been placed on empiric antimicrobials. Arterial blood gas was within normal limits. The patient did have an abnormal EEG and was subsequently placed on Keppra following tele-neurology evaluation. However, given our lack of inpatient neurology coverage and inability to perform 24-hour continuous EEG monitoring, it was recommended that the patient be transferred to a tertiary care facility. 2. Acute hypoxemic respiratory failure Potentially related to an aspiration event versus a primary neurological phenomenon. The patient will be continued on supplemental oxygen to maintain saturations at or above 90%. He has already been previously initiated on antibiotics. 3. 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 4. 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/hypothyroidism/GERD/history of atrial flutter Complicates care, management, recovery and prognosis. Continue home medications as indicated. This note was generated with [employer] dictation software. It may contain incorrect words, spelling, and punctuation that were not noted in checking the note before signing. Subjective Subjective The patient was seen and examined at the bedside this morning. Events from the last 24 hours have been reviewed. The patient is currently afebrile, hemodynamically stable and maintaining appropriate oxygen saturations on 3L/min via nasal cannula. The patient remains significantly confused and agitated. Repeat CT head completed yesterday revealed no interval changes. Repeat ammonia level this morning was noted to be 19. Following evaluation by tele-neurology yesterday, the patient was started on Keppra. Objective Data Objective Data The patient's most recent lab work, culture data and imaging studies have all been personally reviewed. Infectious work-up has been unrevealing to date. EEG demonstrated focal left frontal temporal and generalized electrographic slowing. This is indicative of bihemispheric cerebral dysfunction as well as focal left frontal temporal pathology. No epileptiform activity was present. Vital Signs: Vital Signs Temp Pulse Resp BP Pulse Ox 96.0 F L 71 26 H 165/62 H 97 08/26/21 04:00 08/26/21 07:00 08/26/21 07:00 08/26/21 07:00 08/26/21 07:00 Oxygen Flow Rate (L/min) 3 Oxygen Delivery Method Nasal Cannula Weight: 84.9 kg Body Mass Index (BMI) 28.5 Intake & Output: Intake and Output for Last 24 Hours 08/24/21 08/25/21 08/26/21 23:59 23:59 23:59 Intake Total 2290 / 2290 1325.00 / 1325.00 1052.5 / 1052.5 Output Total 400 / 400 250 / 250 Balance 2290 / 2290 925.00 / 925.00 802.5 / 802.5 Lab / Micro Data Attestation: I reviewed the patient's lab results. Result Diagrams: 08/26/21 12:42 08/26/21 03:30 Labs: Laboratory Results - last 24 hr 08/25/21 04:45: Total Bilirubin 4.70 H, Direct Bilirubin 2.38 H, AST 168 H, ALT 68 H, Alkaline Phosphatase 224 H, Total Protein 7.6, Albumin 3.4, Globulin 4.2 08/25/21 04:45: GGT 192 H 08/25/21 07:50: Ammonia 53.0 H 08/25/21 10:30: APTT 47.3 H 08/25/21 16:25: APTT 207.6 H* 08/25/21 21:35: POC Glucose 92 08/26/21 01:03: APTT 104.2 H* 08/26/21 06:15: Ammonia 19.0 Micro: Microbiology 08/24/21 06:10 Urine, Catheterized Urine Culture - Preliminary Culture exhibits no growth. 08/24/21 08:04 Mucosa - Other Respiratory Panel (PCR) - Final 08/24/21 05:35 Interface Orders SARS-CoV-2 Antigen (Rapid) - Final Radiography Diagnostic Testing: Radiology Impression Abdomen Ultrasound 08/25/21 08:49 IMPRESSION: Mild hepatomegaly. Echogenic liver from hepatic steatosis or hepatocellular disease with a lobulated contour, raising the possibility of cirrhosis. Right pleural effusion. Cholecystectomy. 3.7 cm right renal cyst. at 1137 Reported and signed by: Renea Baig MD Electronically Signed: Renae Baig MD at 11:36 EDT Tel , Service support , Brain CT 08/25/21 15:37 IMPRESSION: No acute intracranial process identified. Chronic small vessel ischemic gliosis. Sphenoid sinusitis. Individualized dose optimization techniques were used for this CT. at 1645 Reported and signed by: Renea Baig MD Electronically Signed: Renea Baig MD at 16:44 EDT Tel , Service support , Rhythm Strip Rhythm Strip: Paced Rate: 71 Ectopy: None Physical Exam Const General Appearance: uncooperative and lethargic Orientation / Consciousness: confused and disoriented Exam Limitations: altered mental status HEENT normocephalic and head/scalp atraumatic Eyes PERRL Neck supple General: trachea midline Chest inspection of chest normal Resp Resp Narrative: Etienne-Osorio respiratory pattern Auscultation: Negative for rales, rhonchi or wheezes Cardio regular rate and regular rhythm Heart Sounds: click GI normal to inspection, nondistended, normoactive bowel sounds Extremity no clubbing, cyanosis or edema Skin no rashes or lesions noted Neuro moves all extremities Psych Activity / Motor Behavior: restless Charges/Coding Visit Charges Inpatient E&M: 14530 Subs Hosp L3
--- NOTE | 2021-08-26 11:18 | PCM.PN.REN ---
Subjective Subjective Following for TIEN on CKD. Pt is obtunded. Does not appear to be uncomfortable. Cannot do ROS. Objective Data Objective Data Vital Signs: Vital Signs Temp Pulse Resp BP Pulse Ox 96.0 F L 71 26 H 165/62 H 93 08/26/21 04:00 08/26/21 07:00 08/26/21 07:00 08/26/21 07:00 08/26/21 07:52 Oxygen Flow Rate (L/min) 3 Oxygen Delivery Method Nasal Cannula Weight: 84.9 kg Body Mass Index (BMI) 28.5 Intake & Output: Intake and Output for Last 24 Hours 08/24/21 08/25/21 08/26/21 23:59 23:59 23:59 Intake Total 2290 / 2290 1325.00 / 1325.00 1052.5 / 1052.5 Output Total 400 / 400 250 / 250 Balance 2290 / 2290 925.00 / 925.00 802.5 / 802.5 Lab / Micro Data Result Diagrams: 08/25/21 04:45 08/25/21 04:45 Labs: Laboratory Results - last 24 hr 08/25/21 16:25: APTT 207.6 H* 08/25/21 21:35: POC Glucose 92 08/26/21 01:03: APTT 104.2 H* 08/26/21 06:15: Ammonia 19.0 Micro: Microbiology 08/24/21 05:46 Blood Culture (Wb) - Left Forearm Blood Culture - Preliminary No growth in 48 hours. 08/24/21 05:47 Blood Culture (Wb) - Right Hand Blood Culture - Preliminary No growth in 48 hours. 08/24/21 06:10 Urine, Catheterized Urine Culture - Final Culture exhibits no growth. 08/24/21 08:04 Mucosa - Other Respiratory Panel (PCR) - Final 08/24/21 05:35 Interface Orders SARS-CoV-2 Antigen (Rapid) - Final Radiography Diagnostic Testing: Radiology Impression Abdomen Ultrasound 08/25/21 08:49 IMPRESSION: Mild hepatomegaly. Echogenic liver from hepatic steatosis or hepatocellular disease with a lobulated contour, raising the possibility of cirrhosis. Right pleural effusion. Cholecystectomy. 3.7 cm right renal cyst. at 1137 Reported and signed by: Renea Baig MD Electronically Signed: Renea Baig MD at 11:36 EDT Tel , Service support , Brain CT 08/25/21 15:37 IMPRESSION: No acute intracranial process identified. Chronic small vessel ischemic gliosis. Sphenoid sinusitis. Individualized dose optimization techniques were used for this CT. at 1645 Reported and signed by: Renea Baig MD Electronically Signed: Renea Baig MD at 16:44 EDT Tel , Service support , Rhythm Strip Rhythm Strip: Paced Rate: 71 Ectopy: None Physical Exam Narrative sleepy-arousable but falls asleep quickly no obvious distress no pallor no icterus no JVD s1s2 no murmurs lungs clear anteriorly abdomen soft no organomegaly no edema no cyanosis Assessment & Plan Assessment/Plan (1) Chronic renal insufficiency: PLAN: Baseline serum creatinine is around 2 mg/dL. He has CKD stage IIIb. (2) TIEN (acute kidney injury): PLAN: -Suspect TIEN was initially prerenal from volume depletion and decreased intake. Urinalysis on admission showed high specific gravity without any significant microscopic RBCs. There was 2+ protein on dipstick although the urine is concentrated. -Abdominal ultrasound only look that right kidney which was normal in size, and there is no hydronephrosis. I have low suspicion for obstructive TIEN, but will check formal renal ultrasound if renal function continues to decline. -The patient has a high chance of progression to ischemic ATN. The patient has gained nearly 3 kg in the last 48 hours with positive fluid balance. I will recheck urine indices. -I am awaiting the results of today's metabolic panel. If there is a trend towards increasing serum creatinine, the patient may ultimately need dialysis since he is encephalopathic with worsening kidney function. d/w Dr. Weeks
--- NOTE | 2021-08-26 12:42 | NURSING ---
Lab draw from RT hand x2 attempts by this RN with 25 G butterfly. Sent to Lab.
[2021-08-26 12:49] LABS: Absolute Neutrophil Count 5.8 X10^3/uL (2.0-7.7); Basophil# 0.05 X10^3/uL; Basophil% 0.6 % (0-1); Eosinophil# 0.49 X10^3/uL; Eosinophils% 5.8 % (0-5); Hematocrit 41.6 % (40-54); Hemoglobin 12.9 g/dL (13.0-16.5); Lymphocyte % 16.6 % (19-41); Mean Corpuscular Hgb 33.1 pg (27.0-32.0); Mean Corpuscular Volume 106.7 fL (80-94); Mean Platelet Vol. 11.8 fl (6.2-12.0); Monocyte# 0.68 X10^3/uL; NRBC Flagged by Analyzer 0 % (0-5); Neutrophil # 5.81 X10^3/uL (2.7-7.7); Neutrophil % 68.8 % (47-70); POSITIVE COUNT YES; POSITIVE MORPHOLOGY YES; Platelet Count 57 K/mm3 (150-450); RBC Distribution Width CV 18.6 % (11.6-14.6); White Blood Count 8.5 K/mm3 (4.4-11.0)
--- NOTE | 2021-08-26 12:52 | PN.HOSP_ITS ---
Subjective Subjective More alert, but not following commands. Objective Data Objective Data Vital Signs: Vital Signs Temp Pulse Resp BP Pulse Ox 35.6 C L 71 26 H 165/62 H 93 08/26/21 04:00 08/26/21 07:00 08/26/21 07:00 08/26/21 07:00 08/26/21 07:52 Oxygen Flow Rate (L/min) 3 Oxygen Delivery Method Nasal Cannula Weight: 84.9 kg Body Mass Index (BMI) 28.5 Intake & Output: Intake and Output for Last 24 Hours 08/24/21 08/25/21 08/26/21 23:59 23:59 23:59 Intake Total 2290 / 2290 1325.00 / 1325.00 1052.5 / 1052.5 Output Total 400 / 400 250 / 250 Balance 2290 / 2290 925.00 / 925.00 802.5 / 802.5 Lab / Micro Data Result Diagrams: 08/25/21 04:45 08/25/21 04:45 Labs: Laboratory Results - last 24 hr 08/25/21 16:25: APTT 207.6 H* 08/25/21 21:35: POC Glucose 92 08/26/21 01:03: APTT 104.2 H* 08/26/21 06:15: Ammonia 19.0 08/26/21 11:40: APTT Cancelled Micro: Microbiology 08/24/21 05:46 Blood Culture (Wb) - Left Forearm Blood Culture - Preliminary No growth in 48 hours. 08/24/21 05:47 Blood Culture (Wb) - Right Hand Blood Culture - Preliminary No growth in 48 hours. 08/24/21 06:10 Urine, Catheterized Urine Culture - Final Culture exhibits no growth. 08/24/21 08:04 Mucosa - Other Respiratory Panel (PCR) - Final 08/24/21 05:35 Interface Orders SARS-CoV-2 Antigen (Rapid) - Final Radiography Diagnostic Testing: Radiology Impression Brain CT 08/25/21 15:37 IMPRESSION: No acute intracranial process identified. Chronic small vessel ischemic gliosis. Sphenoid sinusitis. Individualized dose optimization techniques were used for this CT. at 1645 Reported and signed by: Renea Baig MD Electronically Signed: Renea Baig MD at 16:44 EDT Tel , Service support , Rhythm Strip Rhythm Strip: Paced Rate: 71 Ectopy: None Physical Exam Const Constitutional Narrative: confused. opens eyes to voice. speech incomprehensible. does not follow commands. HEENT Mouth: dry mucous membranes Eyes PERRL Resp normal respiratory effort, no retractions, no use of accessory muscles and clear to auscultation bilaterally Cardio regular rate, regular rhythm, S1 normal heart sound and S2 normal heart sound GI normal to inspection, nondistended, normoactive bowel sounds, soft to palpation, non-tender and non-distended Extremity normal to inspection Skin no rashes or lesions noted Neuro Neuro Narrative: no clonus. moves all extremities spontaneously. Assessment & Plan Assessment/Plan (1) Acute metabolic encephalopathy: PLAN: 1. Acute metabolic encephalopathy * exact etiology unclear possible metabolic/nonadherence to lactulose/dehydration: Patient is being admitted in PCU. Started on IV fluid half-normal saline. Lactulose is started. Patient also has BUN elevation but is chronically elevated. Does not have fluid overload symptoms including leg swelling or pulmonary edema. CT head ordered. Patient previous CT head did not show any acute change. Sepsis work-up blood cultures x2 urine culture and respiratory panel including blood cultures x2 and urine culture ordered. UA is bland and patient is already on antibiotic Ceftriaxone and home Chronic prophylactic doxycycline for MRSA. * 08/25: Ammonia level is not diagnostic of change in the mental status.Ammonia level 56, 35 and 53.Elevated direct hyperkalemia, alkaline phosphatase and transaminases, right upper quadrant sonogram is ordered.I talked to the patient's and she preferred [facility] but they do not have bed. I further called [facility] transfer line and exchanged the clinical information with utilization review coordinator and she has put in the prior left wrist. I further said she does not require neuro ICU care as per now. * 08/26: still confused, but reportedly more alert. EEG was negative for seizure. Since we cannot do continuous EEG. We will recheck an EEG to see if there is any evidence of any kind of seizures. Discussed with Dr. Weeks 2) Recent right lower lobe community-acquired pneumonia.: * At that time urinary antigens were negative. * Rapid Covid is negative. * on CTX 3) history of AVR due to back to endocarditis x3, * mechanical aortic valve prosthesis: INR is subtherapeutic. * 08/25: INR is therapeutic. Started on IV heparin drip. DC Lovenox. 4) CKD stage STAGE 3b: * Estimated creatinine is on baseline with BUN/creatinine 2.42.BUN/creatinine elevated 46/3.14. May be related to the fluid status. 5) hypothyroidism Continue Synthroid. 6) GERD Continue PPI. 7) BPH Continue Flomax. 8) history of atrial flutter, paroxysmal VT, DVT, history of rheumatic fever in childhood, nonrheumatic mitral regurgitation status post mitral valve repair and AVR status post dual-chamber pacemaker: Continue Coreg. 9) HTN: Currently his blood pressure is fluctuating because he is moving and restless. Continue Coreg, isosorbide. Hold Lasix as patient seems dehydrated. 10. Extensive comorbidities including hypothyroidism, mild coronary artery disease, diffuse large B-cell lymphoma: TSH tomorrow a.m. CODE STATUS: Full code. Charges/Coding Visit Charges Inpatient E&M: 11480 Subs Hosp L3
[2021-08-26 12:53] LABS: Differential Indicated SCAN CRITERIA MET
[2021-08-26 12:57] LABS: ALB/GLOB Ratio 0.7 RATIO (0.9-2.4); AST(SGOT) 194 U/L (15-37); Alanine Aminotransfer ALT/SGPT 117 U/L (16-61); Albumin, Serum 2.5 g/dL (3.2-5.0); Alkaline Phosphatase 167 U/L (45-117); Anion Gap 8 (5-15); BUN 58 mg/dL (7-18); BUN/Creat Ratio 21.1 RATIO (10-20); Calcium,Total 8.2 mg/dL (8.5-10.1); Chloride 112 mmol/L (98-107); Creatinine, Serum 2.75 mg/dL (0.70-1.30); EST Glomerular Filtration Rate 24 mL/min (>60); Est Glom Filt Rate - Afr Amer 29 mL/min (>60); Estimated Creatinine Clearance 21.91 ml/min; Globulin 3.8 g/dL (2.2-4.2); Glucose 94 mg/dL (74-106); Protein, Total 6.3 g/dL (6.4-8.2); Sodium Level 142 mmol/L (136-145)
[2021-08-26 12:57] LABS: Partial Thromboplast Time 48.1 Seconds (24.1-36.2)
[2021-08-26 13:14] LABS: Crenated RBC 1+; Platelet Estimate MKD DEC (ADEQ); Schistocytes 1+
[2021-08-26 13:15] LABS: Anisocytosis 1+
[2021-08-26] MEDS: Ceftriaxone 1 GM/50 ML BAG IV (13:48)
[2021-08-26 14:20] LABS: International Normalized Ratio 2.7; Prothrombin Time (Protime)PT. 27.7 SECONDS (11.7-14.9)
--- NOTE | 2021-08-26 15:06 | PCM.PN.BLA ---
Progress Note Metabolic panel reviewed. Renal function has actually improved since yesterday.Serum creatinine is down to 2.75 mg/dL. There is no hyperkalemia or severe acidosis. Therefore, there is no need for dialysis today.
--- NOTE | 2021-08-26 16:09 | PCM.DC.SUM ---
Providers Date of Admission: 08/24/21 Date of Discharge: 08/26/21 Primary Care Physician: Dr. Vinny Atkinson MD Consultations 08/24/21 12:44 Consult: Fish Cleaner / Pulmonary Medicine Routine Consulting Provider: Pulmonary Medicine babs Tavares Reason for Consult: AMS, Etienne wan breathing EMERGENT Consult: No Notified: Yes Date Notified: 08/24/21 Time Notified: 11:30 Method of Notification: Verbal 08/25/21 07:10 Consult: Nephrology Routine Consulting Provider: Benito Montano Reason for Consult: TIEN on CKD EMERGENT Consult: No Notified: Yes Date Notified: 08/25/21 Time Notified: 09:13 Method of Notification: Answering Service Reason For Visit: AMS, RECENT DELIRIUM Diagnosis Discharge Diagnosis (1) Encephalopathy: Status: Acute Code(s): G93.40 - Encephalopathy, unspecified Medications at Discharge Home Medications multivitamin with folic acid 2 tab PO DAILY 06/06/16 allopurinol 100 mg PO DINNER 08/29/17 calcitriol 0.25 mg PO DINNER 08/29/17 ferrous sulfate 325 mg (65 mg iron) tablet 65 mg PO DINNER tab 11/21/18 cyclobenzaprine 10 mg PO QHS 12/31/18 furosemide 20 mg tablet 20 mg PO DAILY #90 tab 01/27/21 sodium bicarbonate 650 mg tablet 650 mg PO BID tablet 03/01/21 isosorbide mononitrate 30 mg tablet,extended release 24 hr 30 mg PO DAILY #90 tab 04/25/21 carvedilol 3.125 mg PO BID 05/19/21 tamsulosin 0.4 mg PO DINNER 05/19/21 warfarin 6 mg PO DINNER 06/28/21 pantoprazole 40 mg tablet,delayed release 40 tablet PO DAILY 08/02/21 cefdinir 300 mg PO BID #10 cap 08/20/21 doxycycline hyclate 100 mg PO BID 08/24/21 lactulose 20 g PO BID 08/24/21 levothyroxine 75 mcg PO DAILY 08/24/21 Hospital Course Operations None Procedures Electroencephalogram Summary of Care Provided Minutes Spent on Discharge: 35 Hospital Course: 69-year-old male presents with change in mental status confusion. Patient had been admitted and discharged earlier diagnosed with pneumonia and given antibiotics. Mental status did slightly improved and patient did have an EEG that was abnormal showing focal attenuation. Patient was seen by [facility] who recommended routine extended daily EEGs for the next few days. Patient was started on empiric levetiracetam 250 mg twice daily. Patient's mental status did slightly improve. However patient was still very confused unable to follow commands. Transfer was requested initially to [facility] but did not have any beds available but did have success with [facility]. Patient will be discharged there in stable condition. Additionally, patient had CKD 3 being seen by nephrology. No need for renal replacement therapy was necessary. Patient was continued on treatment for the recent pneumonia. Weight / BMI Weight Weight: 84.9 kg Body Mass Index (BMI) 28.5 ABG / Lab / Microbiology Data Result Diagrams: 08/26/21 12:42 08/26/21 03:30 Laboratory: Laboratory Results - last 24 hr 08/25/21 16:25: APTT 207.6 H* 08/25/21 21:35: POC Glucose 92 08/26/21 01:03: APTT 104.2 H* 08/26/21 03:30: Sodium 142, Potassium 4.0, Chloride 112 H, Carbon Dioxide 22.0, Anion Gap 8, BUN 58 H, Creatinine 2.75 H, Estim Creat Clear Calc 21.91, Est GFR (MDRD) Af Amer 29 L, Est GFR (MDRD) Non-Af 24 L, BUN/Creatinine Ratio 21.1 H, Glucose 94, Calcium 8.2 L, Total Bilirubin 2.00 H, AST 194 H, ALT 117 H, Alkaline Phosphatase 167 H, Total Protein 6.3 L, Albumin 2.5 L, Globulin 3.8, Albumin/Globulin Ratio 0.7 L 08/26/21 06:15: Ammonia 19.0 08/26/21 11:40: APTT Cancelled 08/26/21 12:42: PT 27.7 H, INR 2.7 08/26/21 12:42: WBC 8.5, RBC 3.90 L, Hgb 12.9 L, Hct 41.6, MCV 106.7 H, MCH 33.1 H, MCHC 31.0 L, RDW Std Deviation 74.0 H, RDW Coeff of Jennifer 18.6 H, Plt Count 57 L, MPV 11.8, Immature Gran % (Auto) 0.200, Neut % (Auto) 68.8, Lymph % (Auto) 16.6 L, Cabell % (Auto) 8.0, Eos % (Auto) 5.8 H, Baso % (Auto) 0.6, Absolute Neuts (auto) 5.8, Absolute Lymphs (auto) 1.40, Nucleated RBC % 0, Platelet Estimate MKD DEC, Anisocytosis 1+, Crenated Cell 1+, Schistocytes 1+ 08/26/21 12:42: APTT 48.1 H Microbiology: Microbiology 08/24/21 05:46 Blood Culture (Wb) - Left Forearm Blood Culture - Preliminary No growth in 48 hours. 08/24/21 05:47 Blood Culture (Wb) - Right Hand Blood Culture - Preliminary No growth in 48 hours. 08/24/21 06:10 Urine, Catheterized Urine Culture - Final Culture exhibits no growth. 08/24/21 08:04 Mucosa - Other Respiratory Panel (PCR) - Final 08/24/21 05:35 Interface Orders SARS-CoV-2 Antigen (Rapid) - Final Radiography Diagnostic Testing: Radiology Impression Brain CT 08/25/21 15:37 IMPRESSION: No acute intracranial process identified. Chronic small vessel ischemic gliosis. Sphenoid sinusitis. Individualized dose optimization techniques were used for this CT. at 1645 Reported and signed by: Renea Baig MD Electronically Signed: Renea Baig MD at 16:44 EDT Tel , Service support , Meaningful Use Info Meaningful Use Diagnoses (Choose all that apply): None applicable Discharge Plan Admission Admit Date/Time: 08/24/21 07:39 Primary Reason for Your Visit: encephalopathy Attending Provider: Pako Valadez Primary Care Provider: Vinny Atkinson Consulting Providers: Isaac Min ; Jd Weeks ; Sue Roberts [employer] ; Benito Montano Discharge Orders/Prescriptions Prescriptions: No Action ferrous sulfate 325 mg (65 mg iron) tablet 65 mg PO DINNER RF: 0 pantoprazole 40 mg tablet,delayed release (DR/EC) 40 tablet PO DAILY RF: 0 multivitamin with folic acid 1 TABLET tablet 2 tab PO DAILY RF: 0 allopurinol 100 MG tablet 100 mg PO DINNER RF: 0 calcitriol 0.25 MCG capsule 0.25 mg PO DINNER RF: 0 cyclobenzaprine 10 MG tablet 10 mg PO QHS RF: 0 carvedilol 3.125 mg tablet 3.125 mg PO BID RF: 0 tamsulosin 0.4 mg capsule 0.4 mg PO DINNER RF: 0 warfarin 6 mg tablet 6 mg PO DINNER RF: 0 Hold Instructions: Resume on 08/22/21. Do not resume unless told to do so by your primary care provider. cefdinir 300 mg capsule 300 mg PO BID Qty: 10 RF: 0 doxycycline hyclate 100 MG capsule 100 mg PO BID RF: 0 levothyroxine 75 mcg tablet 75 mcg PO DAILY RF: 0 lactulose 20 gram packet 20 g PO BID RF: 0 furosemide 20 mg tablet 20 mg PO DAILY Qty: 90 RF: 3 sodium bicarbonate 650 mg tablet 650 mg PO BID RF: 0 isosorbide mononitrate 30 mg tablet extended release 24 hr 30 mg PO DAILY Qty: 90 RF: 3 Referrals / Follow Up: Vinny Atkinson MD [Primary Care Provider] - Disposition Disposition (needs filled in before D/C Order can be placed): Acute Care Hospital Charges/Coding Visit Charges Inpatient E&M: 30085 Disch Hosp
== END 2021-08-26 15:10 | disposition short-term general hospital (02) | DRG 640 ==
LOC: ED 07:15 → ICU 08-25 07:21
PROVIDERS: Internal Medicine Critical Care Medicine; Admitting Provider Internal Medicine; Emergency Provider Emergency Medicine; PCP Family Medicine
DX: E86.0 Dehydration (principal); G93.41 Metabolic encephalopathy; I33.0 Acute and subacute infective endocarditis; J96.01 Acute respiratory failure with hypoxia; J69.0 Pneumonitis due to inhalation of food and vomit; N17.9 Acute kidney failure, unspecified; I48.92 Unspecified atrial flutter; I47.2 Ventricular tachycardia; J90 Pleural effusion, not elsewhere classified; N25.81 Secondary hyperparathyroidism of renal origin; D63.1 Anemia in chronic kidney disease; I12.9 Hypertensive chronic kidney disease with stage 1 through stage 4 chronic kidney disease, or unspecified chronic kidney disease; N18.32 Chronic kidney disease, stage 3b; I25.10 Atherosclerotic heart disease of native coronary artery without angina pectoris; I08.0 Rheumatic disorders of both mitral and aortic valves; E03.9 Hypothyroidism, unspecified; K21.9 Gastro-esophageal reflux disease without esophagitis; N40.0 Benign prostatic hyperplasia without lower urinary tract symptoms; E78.00 Pure hypercholesterolemia, unspecified; G47.33 Obstructive sleep apnea (adult) (pediatric); R79.1 Abnormal coagulation profile; I25.2 Old myocardial infarction; Z78.1 Physical restraint status; Z95.0 Presence of cardiac pacemaker; Z95.2 Presence of prosthetic heart valve; Z91.14 Patient's other noncompliance with medication regimen; Z79.01 Long term (current) use of 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; Z79.890 Hormone replacement therapy; Z79.899 Other long term (current) drug therapy; Z85.72 Personal history of non-Hodgkin lymphomas; Z86.14 Personal history of Methicillin resistant Staphylococcus aureus infection; Z86.718 Personal history of other venous thrombosis and embolism; Z86.16 Personal history of COVID-19; Z86.73 Personal history of transient ischemic attack (TIA), and cerebral infarction without residual deficits
CPT/HCPCS: 36415; 36600; 70450; 71045; 76705; 80048; 80053; 80069; 80076; 81001; 82140; 82803; 82962; 82977; 83605; 83735; 83970; 84100; 84443; 84484; 85025; 85027; 85610; 85730; 87040; 87086; 87426; 87633; 93005; 95819; 99285; J7030; A4216

== ENCOUNTER 2021-11-16 11:49 | Outpatient (RCR) | payer MEDICARE, OTHER, SELFPAY ==
[2021-08-18 21:58] VITALS: BMI 28.8
[2021-10-25 12:20] LABS: International Normalized Ratio 2.9; Prothrombin Time (Protime)PT. 29.9 SECONDS (11.7-14.9)
[2021-11-01 17:33] LABS: Prothrombin Time (Protime)PT. 42.4 SECONDS (11.7-14.9)
[2021-11-01 18:22] LABS: International Normalized Ratio 4.6
[2021-11-10 11:16] LABS: Prothrombin Time (Protime)PT. 42.5 SECONDS (11.7-14.9)
[2021-11-10 11:25] LABS: International Normalized Ratio 4.6
[2021-11-16 12:55] LABS: International Normalized Ratio 3.5; Prothrombin Time (Protime)PT. 34.5 SECONDS (11.7-14.9)
== END 2021-11-19 18:00 | disposition home or self-care (01) ==
LOC: LAB 11:49
PROVIDERS: Family Provider Family Medicine; PCP Family Medicine; Referring Provider Internal Medicine Cardiovascular Disease; Visit Provider Internal Medicine Cardiovascular Disease
DX: Z79.01 Long term (current) use of 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 (principal); Z95.2 Presence of prosthetic heart valve
CPT/HCPCS: 36415; 85610

== ENCOUNTER 2021-11-21 10:16 | Outpatient (CLI) | payer MEDICARE, OTHER, SELFPAY ==
[2021-11-21 11:19] LABS: Anion Gap 9 (5-15); BUN 34 mg/dL (7-18); BUN/Creat Ratio 13.4 RATIO (10-20); Calcium,Total 10.5 mg/dL (8.5-10.1); Chloride 105 mmol/L (98-107); Creatinine, Serum 2.53 mg/dL (0.70-1.30); EST Glomerular Filtration Rate 27 mL/min (>60); Est Glom Filt Rate - Afr Amer 32 mL/min (>60); Glucose 131 mg/dL (74-106); Potassium 3.6 mmol/L (3.5-5.1); Sodium Level 139 mmol/L (136-145)
== END 2021-11-21 23:59 | disposition home or self-care (01) ==
LOC: LAB 10:20
PROVIDERS: PCP Family Medicine; Referring Provider Internal Medicine Nephrology; Visit Provider Internal Medicine Nephrology
DX: N17.9 Acute kidney failure, unspecified (principal)
CPT/HCPCS: 36415; 80048

== ENCOUNTER 2021-11-25 13:00 | Outpatient (RCR) | payer MEDICARE, OTHER, SELFPAY ==
--- NOTE | 2021-10-26 10:54 | HP.PTEVAL_ITS ---
Patient's Visit Information CHRISTIAN RICHMOND is a 71 year old M referred to Physical Therapy by Out of Town Doctor with a diagnosis of Deconditioning. Date of Evaluation: 10/26/21 Physical Therapist: Pako Grossman, SHERRILLT, OCS, CSCS - Visit Plan Frequency: 3x /Week Duration: 4-6 Weeks Plan: 3x/week for 3-6 weeks for. 1. Ex for strengthening of LE, posture and overall mobility that patient can eventually do at home with pics when safe. 2. Gait and stair training. 3. ;Stretch HS and gastrocs. - Subjective Just spent 8 weeks in hospital due to with multiple medical problems including liver adn kidney failure and bleeds and resulting in altered mental status. On dialysis 3 days per week now. Had therapy in hosptial but was in bed long time and got week. may have started with liver problems. Was fine prior to this incident outside of 3 open heart surgeries adn was working out as [employer]. Has not done that in about 2 years. Sleeping is OK. No pain. 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 Occasional lightheaded with position change. Has passed out 4x since 2019 and had many tests and no reason why.EEGs, MRI, tilt bard tests all came back OK. Not employed. Spends day when healthy driving dad to doctor appointments and go fishing and play with grandkids. Could do those prior to last couple months. Basic ADLS incldue dressing, bathroom , shower with monitorring. shoshana present and helps him. Currently spends day working on computer finances, watch TV. Ex is walking at home to bathroom. Got own breakfast. Home from hospital last . Has cane and walker and WC but does not use them. No falls. Has no steps in house but 3 to enter from garage with railing. Does them by himself. - Objective 96 spO2 today and 99 HR after steps. Walks slowly and hunched over back to PT but I. Trasfers requiring UE or extra time but I. Steps are reciprocally with two railing and reliant on UE. deficits in sensation to gross light touch in feet. reflexes 1/3 opatella and achilles. Strength LE 4-/5 knees and ankles and 3+ hip abd and ext. Can stand up straight but tends to be kyphoitc in T/S - Balance/Special Test Scores Functional Gait Assessment Score: 22 % Disability: 26.6700 Lower Extremity Functional Score: 12 TUG Test Time Seconds: 13 30 Second Chair Rise Test Seconds: 9 - Goals Goal 1:: 25/30 FGA to minimzie future problems Goal Time Frame: 4-6 Weeks Goal 2:: 15 30 sec sit to stand and ,10 TUG to improve mobility. Goal Time Frame: 4-6 Weeks Goal 3:: Pt I appropriate home based HEP for strengtha dn mobility adn posture Goal Time Frame: 4-6 Weeks Goal 4:: LEFS 35/80 Goal Time Frame: 4-6 Weeks Goal 5:: Pt feel 80% back to baseline prehospital level. Goal Time Frame: 4-6 Weeks - Rehabilitation Potential Physical Therapy Diagnosis: weakness from hosptial stay causing functional deficits. Rehabilitation Potential: Fair - Anticipated Interventions Patient/Client Instruction: Educate patient on: Condition, Plan of Care For the Purpose of:: To increase ROM, To improve muscle performance and motor function, To increase tolerance to activity/condition/position, To improve ability of physical actions for home/community/work/leisure Therapeutic Exercise to Include: Strength training, Postural training, Flexibilty training, Gait and locomotor training For the Purpose of:: To increase ROM, To improve muscle performance and motor function, To increase tolerance to activity/condition/position, To improve ability of physical actions for home/community/work/leisure, To improve gait and locomotor functions Thank you for the opportunity to evaluate your patient. For Medicare and Medicare HMO plans, please review the plan of care and approve it. It will need to be FAXED BACK to us at [phone] for Medicare purposes. For Medicare only, by signing this I certify the plan of care. Please let me know if there are questions or concerns regarding this plan of care. Physician Signature: Date:
--- NOTE | 2021-10-26 11:43 | HP.OTEVAL ---
Patient's Visit Information CHRISTIAN RICHMOND is a 71 year old M, referred to Occupational Therapy by Out of Town Doctor, with a diagnosis of debility. Date of Evaluation: 10/26/21 Occupational Therapist: Jane Nunez, SILVINO/Jayesh, CHT - Subjective This 71 year old male was seen for OT with dx of debility- pt and pts present during assessment- both states he is is performing his ADLs and started doing light cooking and computer use. both states he is back doing what he was prior to his hospital stay but just needs to rest. pt goes to Dialysis 3x week started this end of SEP. pt is fatigued following dialysis but still able to perform daily tasks safely. - ADLs Comments: pt lives with his in a ranch home- has shower chair- grab bars- has motorized scooter. has adj. bed to assist with head and feet elevation- has ww, standard cane and w/c if needed. - Strength Shoulder: right /Left 4/5 Elbow: right /left 4/5 Client Development Manager: right 55# left 60# Lateral Pinch: right 10# left 10# Tripod Pinch: right 10# left 10# - Sensation Sensation Comments: denies - Quick DASH-Disab of Arm,Shoulder& Hand Quick DASH Score: 40.9075 - Rehabilitation General Assessment: Pt demo fair strength and due to pt and pts stating pt has returned to performing his ADLs and IADLs at his PLOF. Pt will cont. with Physical therapy for increase endurance, LE strength and balance. pt and pts agree to POC. - Anticipated Interventions Other Other Interventions: pt will continue with physical therapy at this time. OT not warranted as pt and pts spouse report he is IND with ADLS and their concern is balance and ambulation - Visit Plan TEXT: Thank you for the opportunity to evaluate your patient. For Medicare and Medicare HMO plans, please review the plan of care and approve it. It will need to be FAXED BACK to us at [phone] for Medicare purposes. Please let me know if there are questions or concerns regarding this plan of care. Physician Signature: Date:
--- NOTE | 2022-02-09 11:39 | HP.PT.NRP ---
CHRISTIAN RICHMOND was seen in my office for initial evaluation on 10/26/21. The following Plan of Care was established for this patient: Initial Frequency: 3x /Week Initial Duration: 4-6 Weeks Patient/Client Instruction: Educate patient on: Condition, Plan of Care For the Purpose of:: To increase ROM, To improve muscle performance and motor function, To increase tolerance to activity/condition/position, To improve ability of physical actions for home/community/work/leisure Therapeutic Exercise to Include: Strength training, Postural training, Flexibilty training, Gait and locomotor training For the Purpose of:: To increase ROM, To improve muscle performance and motor function, To increase tolerance to activity/condition/position, To improve ability of physical actions for home/community/work/leisure, To improve gait and locomotor functions This patient was last seen in our office 11/25/21. Pertinent comments regarding their Physical therapy will appear below: Pt seen 7 visits of POC but did not finish POC for reevaluation. At this point it has been over two months and I will discontinue due to nonattendance. At this point I will be discontinuing this patient from physical therapy. I would be happy to see this patient again in the future if found appropriate by the physician. Thank you! Pako Grossman, DPT, OCS, CSCS Balance/Gait/Functional tests - Balance/Special Test Scores Functional Gait Assessment Score: 22 % Disability: 26.6700 Lower Extremity Functional Score: 12 TUG Test Time Seconds: 13 Tug Test: 20-30sec.=variable mobility 30 Second Chair Rise Test Seconds: 9
== END 2021-11-25 19:00 | disposition home or self-care (01) ==
LOC: PT 13:00
PROVIDERS: PCP Family Medicine
DX: R53.81 Other malaise (principal)
CPT/HCPCS: 97110; 97162; 97166

== ENCOUNTER 2021-11-29 09:32 | Outpatient (CLI) | payer MEDICARE, OTHER, SELFPAY | END 2021-11-29 23:59 | disposition short-term general hospital (02) | LOC: POLAB3 09:32 | PROVIDERS: PCP Family Medicine; Visit Provider Internal Medicine Nephrology | DX: N18.4 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, stage 4 (severe) (principal); N25.81 Secondary hyperparathyroidism of renal origin; D63.1 Anemia in chronic kidney disease | CPT/HCPCS: 82140 ==

== ENCOUNTER 2021-12-14 09:35 | Outpatient (RCR) | payer MEDICARE, OTHER, SELFPAY ==
[2021-11-20 04:36] VITALS: BMI 28.8
[2021-11-23 12:55] LABS: Prothrombin Time (Protime)PT. 39.3 SECONDS (11.7-14.9)
[2021-11-23 13:10] LABS: International Normalized Ratio 4.2
[2021-11-28 13:24] LABS: Prothrombin Time (Protime)PT. 84.6 SECONDS (11.7-14.9)
[2021-11-28 13:35] LABS: International Normalized Ratio 10.8
[2021-11-28 13:55] LABS: Albumin, Serum 3.2 g/dL (3.2-5.0); BUN 47 mg/dL (7-18); BUN/Creat Ratio 17.2 RATIO (10-20); Calcium,Total 10.5 mg/dL (8.5-10.1); Chloride 110 mmol/L (98-107); Creatinine, Serum 2.73 mg/dL (0.70-1.30); EST Glomerular Filtration Rate 24 mL/min (>60); Est Glom Filt Rate - Afr Amer 30 mL/min (>60); Glucose 106 mg/dL (74-106); Phosphorus 3.9 mg/dL (2.5-4.9); Potassium 3.7 mmol/L (3.5-5.1); Sodium Level 145 mmol/L (136-145)
[2021-11-28 14:43] LABS: 24 Hour Urine Protein 318.8 mg/24HR (<150 MG/24HR); 24HR. UA Prot. Total Volume 375 mL
[2021-11-28 22:39] LABS: Creat.Clear Total Volume 375 mL; Creatinine Clearance 19 ml/min (100-200); Creatinine Serum Creat 2.7 mg/dL (0.8-1.3); EST Glomerular Filtration Rate 24 mL/min (>60); Est Glom Filt Rate - Afr Amer 30 mL/min (>60)
[2021-11-30 12:45] LABS: Prothrombin Time (Protime)PT. 47.2 SECONDS (11.7-14.9)
[2021-11-30 12:49] LABS: International Normalized Ratio 5.2
[2021-11-30 13:00] LABS: Albumin, Serum 3.3 g/dL (3.2-5.0); BUN 47 mg/dL (7-18); BUN/Creat Ratio 16.7 RATIO (10-20); Calcium,Total 10.3 mg/dL (8.5-10.1); Chloride 113 mmol/L (98-107); Creatinine, Serum 2.82 mg/dL (0.70-1.30); EST Glomerular Filtration Rate 24 mL/min (>60); Est Glom Filt Rate - Afr Amer 29 mL/min (>60); Glucose 122 mg/dL (74-106); Potassium 3.5 mmol/L (3.5-5.1); Sodium Level 144 mmol/L (136-145)
[2021-12-02 12:55] LABS: Prothrombin Time (Protime)PT. 44.1 SECONDS (11.7-14.9)
[2021-12-02 13:01] LABS: International Normalized Ratio 4.8
[2021-12-05 11:54] LABS: Prothrombin Time (Protime)PT. 39.9 SECONDS (11.7-14.9)
[2021-12-05 12:37] LABS: International Normalized Ratio 4.2
[2021-12-07 11:17] LABS: International Normalized Ratio 2.9; Prothrombin Time (Protime)PT. 29.1 SECONDS (11.7-14.9)
[2021-12-14 10:07] LABS: International Normalized Ratio 2.6
== END 2021-12-19 18:00 | disposition home or self-care (01) ==
LOC: LAB 09:35
PROVIDERS: Family Provider Family Medicine; PCP Family Medicine; Referring Provider Internal Medicine Cardiovascular Disease; Visit Provider Internal Medicine Cardiovascular Disease
DX: I48.3 Typical atrial flutter (principal); N18.4 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, stage 4 (severe); Z79.01 Long term (current) use of 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; Z95.2 Presence of prosthetic heart valve
CPT/HCPCS: 36415; 80069; 82570; 82575; 84156; 85610

== ENCOUNTER 2021-12-14 12:56 | Outpatient (CLI) | payer MEDICARE, OTHER, SELFPAY ==
--- NOTE | 2021-12-14 12:59 | VDUE_ITS ---
Reason For Study: Renal failure Right Arm Left Arm Right Cephalic Vein at the wrist measures Left Cephalic Vein at the wrist measures 0.13 x 0.13. cm. 0.18 x 0.18 cm. Right Cephalic Vein in the forearm measures Left Cephalic Vein in the forearm measures 0.19 x 0.19 cm. 0.15 x 0.15 cm. Right Cephalic Vein below antecub measures Left Cephalic Vein below antecub measures 0.16 x 0.16 cm. 0.26 x 0.26 cm. Right Cephalic Vein above antecub measures Left Cephalic Vein above antecub measures 0.21 x 0.21 cm. 0.15 x 0.15 cm. Right Cephalic Vein mid bicep measures 0.19 Left Cephalic Vein at mid bicep measures x 0.19 cm. 0.14 x 0.14 cm. Right Cephalic Vein at the shoulder measures Left Cephalic Vein at the shoulder measures 0.12 x 0.13 cm. 0.14 x 0.14 cm. Right Basilic Vein at the origin measures Basilic vein at origin measures 0.39 x 0.38 0.47 x 0.47 cm. cm. Right Basilic Vein mid bicep measures 0.48 x Basilic vein at bicep measures 0.37 x 0.37 0.47 cm. cm. Right Basilic Vein above antecub measures Basilic vein above antecub measures 0.47 x 0.54 x 0.53 cm. 0.47 cm. Right Brachial artery measures 0.48 x 0.48 Left Brachial artery measures 0.38 x 0.39 cm cm with a velocity of 85.6 cm/sec. with a vleocity of 76.4 cm/sec. Right Radial artery measures 0.19 x 0.19 cm Left Radial artery measures 0.19 x 0.20 cm with a velocity of 59.5 cm/sec. with a velocity of 71.2 cm/sec. VL/Saphenous Vein Mapping, Bilat Interpretation Summary Cephalic veins small bilaterally Patent, compressible bilateral basilic veins Normal bilateral brachial and radial artery flow Ordering Physician: Ford Wen Referring Physician: Vinny Atkinson Performed By: Erica Siu RVT ?
== END 2021-12-14 23:59 | disposition home or self-care (01) ==
PROVIDERS: PCP Family Medicine; Referring Provider Surgery; Visit Provider Surgery
DX: Z01.818 Encounter for other preprocedural examination (principal); N18.4 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, stage 4 (severe); Z95.2 Presence of prosthetic heart valve; Z79.01 Long term (current) use of 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
CPT/HCPCS: 36415; 80069; 82570; 82575; 84156; 85610; 93970

== ENCOUNTER 2021-12-27 10:54 | Outpatient (CLI) | payer MEDICARE, OTHER, SELFPAY ==
[2021-12-27 11:17] LABS: Potassium 3.2 mmol/L (3.5-5.1)
== END 2021-12-27 23:59 | disposition home or self-care (01) ==
LOC: LABSPEC 10:58
PROVIDERS: PCP Family Medicine; Visit Provider Internal Medicine Nephrology
DX: E87.5 Hyperkalemia (principal)
CPT/HCPCS: 84132

== ENCOUNTER 2022-01-10 10:03 | Inpatient (IN) | payer MEDICARE, OTHER, SELFPAY ==
[2022-01-10] VITALS (20 sets, daily range): BP systolic 100–146; BP diastolic 31–99; PULSE 70–99; RESP 18–43; TEMP 36.3–38.7; O2SAT 92–100; BMI 25.7; BMI 23.0
--- NOTE | 2022-01-10 10:14 | EDS_ITS ---
HPI History of Present Illness Chief Complaint: Alt LOC Informant: patient and EMS Narrative Narrative: Reportedly the patient presents to the emergency room for altered level of consciousness. EMS states that he was at dialysis and had multiple diarrheal bowel movements that were associated with diaphoresis and decreased level of consciousness. EMS states that he was ANO x3 and stable vitals in route to the hospital. Prehospital EKG demonstrated a paced rhythm. The patient tells me he does not feel good. My history is limited basically this because anytime I asked him any questions he looks at me and closes his eyes. Somebody also asked him a question he will respond to them. So he tells other staff members that he vomited before dialysis today and had diarrhea dialysis. He states that he still feels nauseated. Reportedly was fine yesterday and during the night. Patient has previously had Covid. He has had fungemia in the past. He had a DIMITRI 1221 that did not show vegetations. [facility] Medical History Abnormal results of thyroid function studies Airway intubation performed without difficulty Anemia in chronic kidney disease Atrial flutter Bacterial endocarditis Benign essential hypertension Biventricular cardiac pacemaker in situ (~05/26/16) CAD (coronary artery disease) Cardiomyopathy in disease classified elsewhere Cardiopulmonary arrest with successful resuscitation 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, stage III (moderate) Chronic renal insufficiency Coagulopathy COVID-19 Diffuse large b-cell lymphoma, extranodal and solid organ sites Dyspnea Encounter for long-term (current) use of high-risk medication Endocarditis due to Staphylococcus GI bleed Gout History of diffuse large B-cell lymphoma History of DVT (deep vein thrombosis) History of non-Hodgkin's lymphoma History of pacemaker History of rheumatic fever as a child Hyperthyroidism Hypothyroidism (acquired) Infectious endocarditis 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 MRSA (methicillin resistant Staphylococcus aureus) infection Non-rheumatic mitral regurgitation Non-rheumatic mitral valve stenosis Non-ST elevation (NSTEMI) myocardial infarction MIA (obstructive sleep apnea) Paroxysmal ventricular tachycardia Pure hypercholesterolemia Rheumatic aortic stenosis Rheumatic mitral insufficiency TIA (transient ischemic attack) (~11/19/15) Home Medications isosorbide mononitrate 30 mg tablet,extended release 24 hr 30 mg PO DAILY #90 tab 04/25/21 [Rx Last Taken 08/18/21] tamsulosin 0.4 mg PO DINNER 05/19/21 [History Last Taken 08/17/21] pantoprazole 40 mg tablet,delayed release 40 tablet PO DAILY 08/02/21 [History Last Taken 08/18/21] doxycycline hyclate 100 mg PO BID 08/24/21 [History Last Taken Unknown] levothyroxine 75 mcg PO DAILY 08/24/21 [History Last Taken Unknown] fluconazole 200 mg tablet 200 mg PO DAILY tab 10/31/21 [History Last Taken Unknown] ondansetron HCl 4 mg tablet 4 mg PO Q6H PRN 10/31/21 [History Last Taken Unknown] warfarin 1 mg tablet 4 mg PO MOTUWE tab 10/31/21 [History Last Taken Unknown] warfarin 5 mg tablet 2 mg PO SUTHFRSA tab 10/31/21 [History Last Taken Unknown] carvedilol 6.25 mg tablet 6.25 mg PO BID #180 tab 12/20/21 [Rx Last Taken Unknown] alprazolam 1 mg tablet 1 mg PO DAILY PRN tab 01/09/22 [History Last Taken Unkno wn] lactulose 10 gram/15 mL oral solution 15 ml PO BID #946 ml 01/09/22 [Rx Last Taken Unknown] levetiracetam 500 mg tablet 500 mg PO BID #60 tab 01/09/22 [Rx Last Taken Unknown] levocarnitine 330 mg tablet 330 mg PO BID #60 tab 01/09/22 [Rx Last Taken Unknown] B complex-vitamin C-folic acid [Nephro-Baltazar] 1 tab PO DAILY 01/10/22 [History Last Taken Unknown] Allergy/AdvReac Type Severity Reaction Status Date / Time No Known Allergies Allergy Verified 01/09/22 09:00 Family History Father CAD (coronary artery disease) CABG Brother CAD (coronary artery disease) CABG Mother Diabetes Sister Breast cancer Diabetes Sister Cancer breast Diabetes Surgical History dual chamber pacemaker implantation (~10/2010) History of aortic valve replacement (~08/2003) History of appendectomy History of atrioventricular chiquita ablation History of cholecystectomy History of evacuation of hematoma History of heart valve replacement with mechanical valve History of heart valve replacement with mechanical valve History of mechanical aortic valve replacement (~1986) History of mitral valve repair (~08/2003) Social History household members: spouse housing: house Smoking Status: Never smoker alcohol intake: never substance use type: does not use caffeine: No what type of physical activity do you participate in: weight training and other details: Nustep frequency: 3-4 times per week duration: 45-60 minutes/day seatbelt use: always do you feel safe at home: Yes ROS ROS ED Review of Systems ROS Unobtainable: due to mental status Gastrointestinal Gastrointestinal: Reports diarrhea, nausea and vomiting EXAM Physical Exam Const Vital Signs: 01/10/22 10:04 01/10/22 10:08 01/10/22 10:25 Temperature 97.9 F 97.9 F Temperature Source Oral Oral Pulse Rate 99 99 Respiratory Rate 24 H 24 H Respiratory Effort Short of Breath Labored Accessory Muscle Use Respiratory Pattern Tachypnea Blood Pressure 146/99 H 146/99 H Blood Pressure Mean 114 114 Pulse Ox 96 96 Oxygen Delivery Method Room Air Room Air Oxygen Flow Rate (L/min) 01/10/22 11:08 01/10/22 11:57 01/10/22 13:03 Temperature 97.4 F L 97.4 F L Temperature Source Oral Oral Pulse Rate 70 70 70 Respiratory Rate 20 H 18 38 H Respiratory Effort Respiratory Pattern Blood Pressure 110/76 100/61 126/45 H Blood Pressure Mean 87 74 72 Pulse Ox 93 95 97 Oxygen Delivery Method Nasal Cannula Nasal Cannula Room Air Oxygen Flow Rate (L/min) 2 3 01/10/22 13:34 Temperature 101.7 F H Temperature Source Axillary Pulse Rate 70 Respiratory Rate 43 H Respiratory Effort Respiratory Pattern Blood Pressure 125/50 H Blood Pressure Mean 75 Pulse Ox 96 Oxygen Delivery Method Nasal Cannula Oxygen Flow Rate (L/min) 4 Positive well nourished and well developed General Appearance ED: well developed HEENT Reports normocephalic, head/scalp atraumatic, TM's clear and moist mucous membranes Negative for trauma Tympanic Membrane ED: Yes TM's clear Eyes PERRL and EOMs intact bilaterally Neck no lymphadenopathy, supple and no JVD Resp normal respiratory effort and clear to auscultation bilaterally Cardio regular rate, regular rhythm and no murmurs GI normal to inspection, nondistended, normoactive bowel sounds and non-tender Palpation: soft Back/Spine no CVA tenderness and normal ROM Extremity normal to inspection General Extremety ED: Negative for edema General Extremity: Negative for edema Neuro oriented x3 and CN's II-XII intact bilaterally Sensorium / Orientation: alert Motor Exam: strength 5/5 throughout Psych mental status grossly normal Mood & Affect: Negative for depressed or tearful Skin no rashes or lesions noted and no wounds MDM MDM MDM Narrative Medical decision making narrative: White count 8.1 hemoglobin 14.5 with a platelet count of 98. INR 2.2. Creatinine 1.83. Total bili of 3 AST of 74 ALT 41 alk phos 316. Lactic acid is pending. Ammonia level is at 50. CT the abdomen pelvis without contrast demonstrates bilateral pleural effusions with bibasilar atelectasis and/or infiltrates. Ascites prostatic enlargement and diffuse bladder wall thickening. Urine is pending as well as the lactic acid. Patient was given vancomycin and Zosyn. He developed fever of 101.7 and t achypnea at 43. Blood pressure 125/50. He is on oxygen currently. Plan will be admission into the hospital Lab Data Attestation: I reviewed the patient's lab results. Labs: Laboratory Results - last 24 hr 01/10/22 01/10/22 01/10/22 10:20 10:20 10:20 WBC 8.1 RBC 4.49 L Hgb 14.5 Hct 44.0 MCV 98.0 H MCH 32.3 H MCHC 33.0 RDW Std Deviation 71.7 H RDW Coeff of Jennifer 20.3 H Plt Count 98 L MPV 11.5 Immature Gran % (Auto) 0.200 Neut % (Auto) 80.6 H Lymph % (Auto) 9.9 L [place] % (Auto) 7.2 Eos % (Auto) 1.7 Baso % (Auto) 0.4 Absolute Neuts (auto) 6.5 Absolute Lymphs (auto) 0.80 L Nucleated RBC % 0 Platelet Estimate MOD DEC Poikilocytosis 1+ Anisocytosis 1+ Ovalocytes 1+ PT 24.0 H INR 2.2 Sodium 140 Potassium 4.2 Chloride 102 Carbon Dioxide 30.0 Anion Gap 8 BUN 25 H Creatinine 1.83 H Estim Creat Clear Calc 34.11 Est GFR (MDRD) Af Amer 47 L Est GFR (MDRD) Non-Af 39 L BUN/Creatinine Ratio 13.7 Glucose 90 Calcium 9.4 Total Bilirubin 3.00 H AST 74 H ALT 41 Alkaline Phosphatase 316 H Ammonia Troponin I High Sens 41 Total Protein 7.5 Albumin 3.2 Globulin 4.3 H Albumin/Globulin Ratio 0.7 L Lipase 109 01/10/22 01/10/22 11:05 11:30 WBC RBC Hgb Hct MCV MCH MCHC RDW Std Deviation RDW Coeff of Jennifer Plt Count MPV Immature Gran % (Auto) Neut % (Auto) Lymph % (Auto) [place] % (Auto) Eos % (Auto) Baso % (Auto) Absolute Neuts (auto) Absolute Lymphs (auto) Nucleated RBC % Platelet Estimate Poikilocytosis Anisocytosis Ovalocytes PT INR Sodium Potassium Chloride Carbon Dioxide Anion Gap BUN Creatinine Estim Creat Clear Calc Est GFR (MDRD) Af Amer Est GFR (MDRD) Non-Af BUN/Creatinine Ratio Glucose Calcium Total Bilirubin AST ALT Alkaline Phosphatase Ammonia Cancelled 50.0 H Troponin I High Sens Total Protein Albumin Globulin Albumin/Globulin Ratio Lipase Radiography Diagnostic Testing: Clinical Impression(s) from Imaging Studies Abdomen/Pelvis CT 01/10/22 13:15 IMPRESSION: Bilateral pleural effusions with bibasilar atelectasis and/or infiltrates worse on the left side. Ascites. Status post cholecystectomy. Prostatic enlargement. Diffuse bladder wall thickening. Stable bilateral renal cysts. Electronically Signed: Donte Álvarez MD at 13:34 EST , Discharge Plan Triage Chief Complaint: Alt LOC ED Provider: Raúl Gomes Dx/Rx/DC Orders Prescriptions: No Action alprazolam 1 mg tablet 1 mg PO DAILY PRN (Reason: anxiety) RF: 0 levetiracetam 500 mg tablet 500 mg PO BID Qty: 60 RF: 2 lactulose 10 gram/15 mL solution 15 ml PO BID Qty: 946 RF: 2 levocarnitine 330 mg tablet 330 mg PO BID Qty: 60 RF: 2 pantoprazole 40 mg tablet,delayed release (DR/EC) 40 tablet PO DAILY RF: 0 fluconazole 200 mg tablet 200 mg PO DAILY RF: 0 ondansetron HCl 4 mg tablet 4 mg PO Q6H PRN (Reason: Nausea) RF: 0 warfarin 5 mg tablet 2 mg PO SUTHFRSA RF: 0 warfarin 1 mg tablet 4 mg PO MOTUWE RF: 0 tamsulosin 0.4 mg capsule 0.4 mg PO DINNER RF: 0 doxycycline hyclate 100 MG capsule 100 mg PO BID RF: 0 levothyroxine 75 mcg tablet 75 mcg PO DAILY RF: 0 Nephro-Baltazar 0.8 mg tablet 1 tab PO DAILY RF: 0 isosorbide mononitrate 30 mg tablet extended release 24 hr 30 mg PO DAILY Qty: 90 RF: 3 carvedilol 6.25 mg tablet 6.25 mg PO BID Qty: 180 RF: 3 Primary Care Provider: Vinny Atkinson
[2022-01-10] MEDS: Ondansetron 4 MG/2 ML Vial IV ×2 (10:26→11:48)
[2022-01-10 10:31] LABS: Absolute Neutrophil Count 6.5 X10^3/uL (2.0-7.7); Basophil# 0.03 X10^3/uL; Basophil% 0.4 % (0-1); Eosinophil# 0.14 X10^3/uL; Eosinophils% 1.7 % (0-5); Hemoglobin 14.5 g/dL (13.0-16.5); Lymphocyte % 9.9 % (19-41); Mean Corpuscular Hgb 32.3 pg (27.0-32.0); Mean Platelet Vol. 11.5 fl (6.2-12.0); Monocyte# 0.58 X10^3/uL; Monocyte% 7.2 % (0-10); NRBC Flagged by Analyzer 0 % (0-5); Neutrophil % 80.6 % (47-70); POSITIVE COUNT YES; POSITIVE MORPHOLOGY YES; Platelet Count 98 K/mm3 (150-450); RBC Distribution Width CV 20.3 % (11.6-14.6); RBC Distribution Width SD 71.7 fl (35.1-43.9); Red Blood Count 4.49 M/mm3 (4.6-6.2); White Blood Count 8.1 K/mm3 (4.4-11.0)
[2022-01-10 10:46] LABS: International Normalized Ratio 2.2
[2022-01-10 10:47] LABS: BUN 25 mg/dL (7-18); Creatinine, Serum 1.83 mg/dL (0.70-1.30); Estimated Creatinine Clearance 34.11 ml/min; Glucose 90 mg/dL (74-106)
[2022-01-10 10:48] LABS: ALB/GLOB Ratio 0.7 RATIO (0.9-2.4); AST(SGOT) 74 U/L (15-37); Alanine Aminotransfer ALT/SGPT 41 U/L (16-61); Albumin, Serum 3.2 g/dL (3.2-5.0); Alkaline Phosphatase 316 U/L (45-117); Anion Gap 8 (5-15); BUN/Creat Ratio 13.7 RATIO (10-20); Calcium,Total 9.4 mg/dL (8.5-10.1); Chloride 102 mmol/L (98-107); EST Glomerular Filtration Rate 39 mL/min (>60); Est Glom Filt Rate - Afr Amer 47 mL/min (>60); Globulin 4.3 g/dL (2.2-4.2); Lipase 109 U/L (73-393); Potassium 4.2 mmol/L (3.5-5.1); Protein, Total 7.5 g/dL (6.4-8.2); Sodium Level 140 mmol/L (136-145); Troponin-I HS 41 pg/mL (3.0-78.0)
[2022-01-10 10:58] LABS: Differential Indicated SCAN CRITERIA MET
[2022-01-10 10:59] LABS: Anisocytosis 1+; Platelet Estimate MOD DEC (ADEQ); Poikilocytosis 1+
[2022-01-10 11:00] LABS: Ovalocyte 1+
--- NOTE | 2022-01-10 13:15 | CT_ITS ---
STUDY: CT ABDOMEN AND PELVIS WITHOUT CONTRAST REASON FOR EXAM: Male, 71 years old. Vomiting and diarrhea RADIATION DOSAGE (If Supplied By Facility): CTDIvol = ( 13.89 ) mGy, DLP = ( 805.76 ) mGycm TECHNIQUE: Transaxial images were obtained from the dome of the diaphragm to the symphysis pubis without oral contrast, and without intravenous contrast. Sagittal and coronal images were reconstructed. Individualized dose optimization techniques were used for this CT. COMPARISON: Comparison is made with prior study dated 09/12/2017. FINDINGS: Small bilateral pleural effusions with bibasilar atelectasis and/or infiltrate slightly more prominent at the left lung base. Dense calcification of the aortic root. Coronary artery calcification. Normal liver. There are surgical clips in the gallbladder fossa consistent with a prior cholecystectomy. Normal spleen. Normal pancreas. Normal bilateral adrenal glands. Stable 3.8 cm cyst in the lower pole of the right kidney 1.1 cm cyst in the lower pole of the left kidney. Normal visualized stomach. Normal small intestine. Normal colon. The appendix is visualized and appears normal. There is diffuse atherosclerotic calcification of the abdominal aorta and its major visceral branches, without a demonstrated aneurysm. Normal inferior vena cava. Normal retroperitoneum. Diffuse bladder wall thickening although the bladder is not completely distended. Small amount of ascites. Prostatic enlargement. This measures 5.9 cm x 5.5 sinus. This causes indentation at the bladder base. Normal abdominal wall. There are diffuse degenerative changes of the visualized lumbar spine. CT/Abdomen/Pelvis without Cont IMPRESSION: Bilateral pleural effusions with bibasilar atelectasis and/or infiltrates worse on the left side. Ascites. Status post cholecystectomy. Prostatic enlargement. Diffuse bladder wall thickening. Stable bilateral renal cysts. Electronically Signed: Donte Álvarez MD at 13:34 EST ,
--- NOTE | 2022-01-10 13:36 | PCM.HP.STD ---
HPI - General General Date of Admission: 01/10/22 Date of Service: 01/10/22 Chief Complaint: HD on day of presentation, N/V, fever, diarrhea, near syncope HPI Narrative The patient is a 71 y/o M w/ PMHx: CAD, Valvular Heart Disease s/p AVR mechanical on coumadin, MIA, HTN, HLD, Hx High Grade B Cell lymphoma in remission, BPH, PAFlutter s/p ablation, CKD stage IV currently undergoing HD w/ Dr. Calderon once weekly with R chest HD access originally placed at [facility] during recent prolonged 08/30/2021 admission who presents to the [facility] ED on 01/10/22 with significant fatigue, malaise, decreased level of consciousness with onset of significant loose stools despite very limited only as needed lactulose as patient was having significant stools and abdominal cramping when he had been on this more frequently in addition to intractable nausea and emesis with incidental significant fever upon ED initial evaluation, increased respiratory rate and accessory muscle usage noted more so since dialysis which was nearly completed per discussion with ED staff and nephrology. Patient has had the symptoms progressing over the last 24 hours. denies any ill contacts. Work-up in the ED included T up to 101.7, heart rate 70, BP 125/50, respiratory rate initially 24 but increased up to 43, initially 96% on room air however became hypoxic eventually and required 4 L nasal cannula to maintain 96% saturation, CBC with WC 8.1, hemoglobin 14.5, platelet 98 with lymphopenia, INR 2.2, CMP with BUN/creatinine 25/1.83, total bilirubin 3, AST/LT 74/41, alk phos 318, ammonia 50, troponin high-sensitivity 41, lipase 109, CT abdomen and pelvis with bilateral pleural effusions with bibasilar atelectasis and/or infiltrates worse on the left side, ascites, evidence status post Vivian cystectomy, prostatic enlargement, diffuse bladder wall thickening with stable bilateral renal cysts. Discussed with ED physician and lactic acid will be obtained. Did discuss also with ED staff and requested that attempts be made to be able to draw out of the right chest dialysis access. Discussed therapy with ED physician and decision to dose with vancomycin, Zosyn and fluconazole. [facility] Medical History Abnormal results of thyroid function studies Airway intubation performed without difficulty Anemia in chronic kidney disease Atrial flutter Bacterial endocarditis Benign essential hypertension Biventricular cardiac pacemaker in situ (~05/26/16) CAD (coronary artery disease) Cardiomyopathy in disease classified elsewhere Cardiopulmonary arrest with successful resuscitation 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, stage III (moderate) Chronic renal insufficiency Coagulopathy COVID-19 Diffuse large b-cell lymphoma, extranodal and solid organ sites Dyspnea Encounter for long-term (current) use of high-risk medication Endocarditis due to Staphylococcus GI bleed Gout History of diffuse large B-cell lymphoma History of DVT (deep vein thrombosis) History of non-Hodgkin's lymphoma History of pacemaker History of rheumatic fever as a child Hyperthyroidism Hypothyroidism (acquired) Infectious endocarditis Iron deficiency USP (current) use of 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 MRSA (methicillin resistant Staphylococcus aureus) infection Non-rheumatic mitral regurgitation Non-rheumatic mitral valve stenosis Non-ST elevation (NSTEMI) myocardial infarction MIA (obstructive sleep apnea) Paroxysmal ventricular tachycardia Pure hypercholesterolemia Rheumatic aortic stenosis Rheumatic mitral insufficiency TIA (transient ischemic attack) (~11/19/15) Home Medications isosorbide mononitrate 30 mg tablet,extended release 24 hr 30 mg PO DAILY #90 tab 04/25/21 [Rx Last Taken 01/09/22] tamsulosin 0.4 mg PO DINNER 05/19/21 [History Last Taken 01/09/22] pantoprazole 40 mg tablet,delayed release 40 tablet PO DAILY 08/02/21 [History Last Taken 01/09/22] doxycycline hyclate 100 mg PO BID 08/24/21 [History Last Taken 01/09/22] levothyroxine 75 mcg PO DAILY 08/24/21 [History Last Taken 01/10/22] fluconazole 200 mg tablet 200 mg PO DAILY tab 10/31/21 [History Last Taken 01/09/22] ondansetron HCl 4 mg tablet 4 mg PO Q6H PRN 10/31/21 [History Last Taken 01/10/22 04:15] warfarin 1 mg tablet 4 mg PO MOTUWE tab 10/31/21 [History Last Taken 01/09/22] warfarin 5 mg tablet 2 mg PO SUTHFRSA tab 10/31/21 [History Last Taken 01/08/22] carvedilol 6.25 mg tablet 6.25 mg PO BID #180 tab 12/20/21 [Rx Last Taken 01/09/22] alprazolam 1 mg tablet 0.5 mg PO DAILY PRN tab 01/09/22 [History Last Taken 01/09/22] levetiracetam 500 mg tablet 500 mg PO BID #60 tab 01/09/22 [Rx Last Taken 01/09/22] levocarnitine 330 mg tablet 330 mg PO BID #60 tab 01/09/22 [Rx Last Taken Unknown] B complex-vitamin C-folic acid [Nephro-Baltazar] 1 tab PO DAILY 01/10/22 [History Last Taken 01/09/22] ferrous sulfate 325 mg PO DAILY 01/10/22 [History Last Taken 01/09/22] lactulose 10 ml PO BID 01/10/22 [History Last Taken 01/09/22] rifaximin 550 mg PO BID 01/10/22 [History Last Taken 01/09/22] Allergy/AdvReac Type Severity Reaction Status Date / Time No Known Allergies Allergy Verified 01/09/22 09:00 Family History Father CAD (coronary artery disease) CABG Brother CAD (coronary artery disease) CABG Mother Diabetes Sister Breast cancer Diabetes Sister Cancer breast Diabetes Surgical History dual chamber pacemaker implantation (~10/2010) History of aortic valve replacement (~08/2003) History of appendectomy History of atrioventricular chiquita ablation History of cholecystectomy History of evacuation of hematoma History of heart valve replacement with mechanical valve History of heart valve replacement with mechanical valve History of mechanical aortic valve replacement (~1986) History of mitral valve repair (~08/2003) Social History household members: spouse housing: house Smoking Status: Never smoker alcohol intake: never substance use type: does not use caffeine: No what type of physical activity do you participate in: weight training and other details: Nustep frequency: 3-4 times per week duration: 45-60 minutes/day seatbelt use: always do you feel safe at home: Yes ROS ROS Narrative does report recent fatigue, malaise, intractable nausea and emesis as well as loose stools but patient cannot give history as he is too encephalopathic. Upon presentation patient was noted to be febrile and had increased work of breathing with accessory muscle usage. Review of Systems ROS Unobtainable: due to encephalopathy Vital Signs Vital Signs Vital Signs: 01/10/22 10:04 01/10/22 10:08 01/10/22 10:25 Temperature 97.9 F 97.9 F Temperature Source Oral Oral Pulse Rate 99 99 Respiratory Rate 24 H 24 H Respiratory Effort Short of Breath Labored Accessory Muscle Use Respiratory Pattern Tachypnea Blood Pressure 146/99 H 146/99 H Blood Pressure Mean 114 114 Pulse Ox 96 96 Oxygen Delivery Method Room Air Room Air Oxygen Flow Rate (L/min) 01/10/22 11:08 01/10/22 11:57 01/10/22 13:03 Temperature 97.4 F L 97.4 F L Temperature Source Oral Oral Pulse Rate 70 70 70 Respiratory Rate 20 H 18 38 H Respiratory Effort Respiratory Pattern Blood Pressure 110/76 100/61 126/45 H Blood Pressure Mean 87 74 72 Pulse Ox 93 95 97 Oxygen Delivery Method Nasal Cannula Nasal Cannula Room Air Oxygen Flow Rate (L/min) 2 3 01/10/22 13:34 Temperature 101.7 F H Temperature Source Axillary Pulse Rate 70 Respiratory Rate 43 H Respiratory Effort Respiratory Pattern Blood Pressure 125/50 H Blood Pressure Mean 75 Pulse Ox 96 Oxygen Delivery Method Nasal Cannula Oxygen Flow Rate (L/min) 4 Weight Weight: 164 lb 3.91 oz Body Mass Index (BMI) 25.7 Physical Exam Narrative Physical Examination: General: Patient extremely encephalopathic, will awaken to painful stimuli, minimally alert when he is awake and can answer some questions but falls back asleep, oriented only to self and place but unable to answer lengthy questions as he is very lethargic, seated upright in the ED bed, increased work of breathing accessory muscle usage, evidence of distress. Skin: Normal color, normal turgor, no icterus, no cyanosis except occasional staged ecchymoses. HEENT: AT/NC, EOMI but difficult is very encephalopathic and closes eyes again very quickly, PERRLA, dry MM, no carotid bruits or JVD noted. Lungs: Diminished, greater bases, increased work of breathing, accessory muscle usage, evidence of distress, no significant rhonchi, wheezing or rails. Heart: Currently regular rate and rhythm; no gallop, rub audible. Abdomen: Soft, no grimacing with palpation, ND, distant hypoactive BS, positive mild HM Extremities: No cyanosis, no clubbing, left lower extremity with pedal to mid mcarthur 2+ pitting edema. Neurological: Patient extremely encephalopathic, will awaken to painful stimuli, minimally alert when he is awake and can answer some questions but falls back asleep, oriented only to self and place but unable to answer lengthy questions as he is very lethargic, cognitive function not baseline intact; pupils equally reactive to light and accommodation, cranial nerves difficult to assess given encephalopathy, moving all extremities to stimuli, strength severely global decreased. Psychiatric: Affect appears in respiratory distress, encephalopathic, no acute evidence of depressive or anxiety feelings. Results Lab / Micro Data Result Diagrams: 01/10/22 10:20 01/10/22 10:20 Labs: Laboratory Results - last 24 hr 01/10/22 10:20: WBC 8.1, RBC 4.49 L, Hgb 14.5, Hct 44.0, MCV 98.0 H, MCH 32.3 H, MCHC 33.0, RDW Std Deviation 71.7 H, RDW Coeff of Jennifer 20.3 H, Plt Count 98 L, MPV 11.5, Immature Gran % (Auto) 0.200, Neut % (Auto) 80.6 H, Lymph % (Auto) 9.9 L, [place] % (Auto) 7.2, Eos % (Auto) 1.7, Baso % (Auto) 0.4, Absolute Neuts (auto) 6.5, Absolute Lymphs (auto) 0.80 L, Nucleated RBC % 0, Platelet Estimate MOD DEC, Poikilocytosis 1+, Anisocytosis 1+, Ovalocytes 1+ 01/10/22 10:20: Sodium 140, Potassium 4.2, Chloride 102, Carbon Dioxide 30.0, Anion Gap 8, BUN 25 H, Creatinine 1.83 H, Estim Creat Clear Calc 34.11, Est GFR (MDRD) Af Amer 47 L, Est GFR (MDRD) Non-Af 39 L, BUN/Creatinine Ratio 13.7, Glucose 90, Calcium 9.4, Total Bilirubin 3.00 H, AST 74 H, ALT 41, Alkaline Phosphatase 316 H, Troponin I High Sens 41, Total Protein 7.5, Albumin 3.2, Globulin 4.3 H, Albumin/Globulin Ratio 0.7 L, Lipase 109 01/10/22 10:20: PT 24.0 H, INR 2.2 01/10/22 11:05: Ammonia Cancelled 01/10/22 11:30: Ammonia 50.0 H Radiology Impression Abdomen/Pelvis CT 01/10/22 13:15 IMPRESSION: Bilateral pleural effusions with bibasilar atelectasis and/or infiltrates worse on the left side. Ascites. Status post cholecystectomy. Prostatic enlargement. Diffuse bladder wall thickening. Stable bilateral renal cysts. Electronically Signed: Donte Álvarez MD at 13:34 EST , Assessment & Plan Assessment/Plan (1) Sepsis: QUALIFIERS: Sepsis type: sepsis due to unspecified organism Sepsis acute organ dysfunction status: unspecified Qualified Code(s): A41.9 - Sepsis, unspecified organism (2) Acute respiratory failure with hypoxia: (3) Pneumonia: QUALIFIERS: Pneumonia type: due to unspecified organism Laterality: bilateral Lung location: unspecified part of lung Qualified Code(s): J18.9 - Pneumonia, unspecified organism (4) Acute encephalopathy: PLAN: The patient is a 71 y/o M w/ PMHx: CAD, Valvular Heart Disease s/p AVR mechanical on coumadin, MIA, HTN, HLD, Hx High Grade B Cell lymphoma in remission, BPH, PAFlutter s/p ablation, CKD stage IV currently undergoing HD w/ Dr. Calderon once weekly with R chest HD access originally placed at [facility] during recent prolonged 08/30/2021 admission who presents to the [facility] ED on 01/10/22 with significant fatigue, malaise, decreased level of consciousness with onset of significant loose stools despite very limited only as needed lactulose as patient was having significant stools and abdominal cramping when he had been on this more frequently in addition to intractable nausea and emesis with incidental significant fever upon ED initial evaluation, increased respiratory rate and accessory muscle usage. #1. Acute Encephalopathy, Multifactorial, secondary to Acute Sepsis secondary to Acute Hypoxic Respiratory Failure secondary to BL PNA, possible GP/GN, possible recurrent Fungemia as noted #2, possibly component #5: Given significant work of breathing, accessory muscle usage, hypoxia with septic appearance will admit to the ICU, maintain on oxygen with wean as tolerated to room air, normal use of CPAP nightly which will be deferred given intractable nausea and emesis, PRN albuterol, maintain on IV Zosyn and Vancomycin, will obtain MRSA screen and de-escalate as able, additionally as patient did have recent fungemia will place back on IV fluconazole at 400 mg daily, HOB, IS parameters w/ pending sputum cultures and urine antigens. Bld cx x 2 obtained in the ED. Also, specifically requested that blood cultures be drawn from patient's right chest dialysis access. Pulmonary critical care physician consulted and following. #2. Recent Marika fungemia: Outside [facility] evaluation with 2/2+ blood cultures noted on 09/09/2021 with no growth since that time and reportedly unclear source however from review of previous ENT notes patient did have removal in his nare of fungemia ball per ENT, initially treated with fluconazole 400 mg daily until 10/30/2021 with transition to suppression with 200 mg daily following this. Patient has been following with infectious disease outpatient. As noted #1 we will resume fluconazole IV 40 mg daily with first dose now and as noted above requested specifically that blood culture be obtained from the right chest access. If concerning findings on blood culture may require repeat DIMITRI with initial 10/2021 DIMITRI without vegetation. #3. N/V/D, unclear etiology, possibly colitis versus gastroenteritis or potentially due to #1: reports only PRN lactulose recently, normally has 3 BM daily with notable increase on day of presentation. Will obtain c-diff, stool cx, O+P with repeat AM CBC. Anti-emetics, pain regimen PRN. #4. Recent TIEN on CKD stage IV secondary to ATN likely secondary to long-term Diflucan and doxycycline requiring HD w/ tunneled dialysis catheter: Admission BUN/Cr 25/1.83, baseline renal function previously noted 2.53, steadily been improving, following with Dr. Sharron Calderon, will continue consultation with nephrology given ESRD ongoing Sunday, , Sunday, repeat BMP in AM. #5. Hyperammonia with liver cirrhosis, unclear specific type, WILEY versus chemotherapy versus cardiac cirrhosis: Patient had recently been initiated on lactulose while hospitalized at [facility] however had been having abdominal cramping and diarrhea therefore they had discontinued this, ammonia level mildly increased at 50 however mental status appropriate, given current diarrhea will avoid lactulose, repeat level in AM. Given unsafe oral intake will hold rifaximin regimen #6. Seizure disorder: Patient with recent evaluation at [facility] with concern for seizure with no marked evidence noted on EEG per report however given concern patient was continued on empiric Keppra with encourage continued outpatient follow-up with neurology. Will transition to IV Keppra given unsafe oral intake. #7. Valvular heart disease with history of prior endocarditis: Hx MVR and status post mechanical aortic valve secondary to history of previous rheumatic heart disease, goal INR 2.5-3.5, TTE at [facility] 10/2021 without any evidence of any vegetations at that time with noted EF 50-55%, well-seated mechanical aortic valve w/ mean aortic valve gradient of 11 mmHg and mild to moderate perivalvular and valvular regurgitation, mean mitral valve gradient 6 mmHg and mild mitral valve rotation, RVSP 53 mmHg similar to 05/2021 ECHO. Given unsafe oral intake will transition to heparin drip and hold Coumadin with INR trending in a.m. Given usage of antibiotics as noted above we will hold doxycycline chronic regimen for which patient had been on for MRSA history with endocarditis previously. #8. Chronic thrombocytopenia: Admission platelets 98, baseline appears 7200, stable, continue to closely monitor and trend, likely associated to his underlying chronic cirrhosis. #9. Chronic normocytic anemia/AOCD: Admission hemoglobin 14.5, improved from prior levels noted, encourage continued follow-up with nephrology, not on any supplementations. #10. Hypothyroidism: We will temporarily hold patient levothyroxine regimen given unsafe oral intake. #11. Chronic anemia/iron deficiency anemia: Admission hemoglobin 14.5, will hold oral supplementation given unsafe oral intake, repeat CBC in AM. #12. Hypertension: Holding oral regimen including isosorbide, beta-ivana therapy given unsafe oral intake, PRN IV hydralazine in the interim. #13. History of VTE: Patient with prior history of DVT and upper extremity clots, patient did report subtherapeutic INR's at [facility], left lower extremity with increased edema, to be cautious despite therapeutic Coumadin will obtain duplex ultrasound in case this occurred during that timeline and he has chronic swelling associated. #14. PAF, flutter: Status post AV chiquita ablation with permanent pacemaker placement with noted concerns at that time for induced cardiomyopathy, continue to monitor on telemetry, transitioned off of Coumadin to heparin drip given unsafe oral intake, holding oral beta-ivana therapy and may use IV Lopressor if necessary. #15. DVT prophylaxis: SCDs, holding Coumadin with transition to heparin drip as noted. #16. CODE status: Patient BRENT is his who is present. Discussed CODE status at length including difference between FULL code, DNR-CCA and DNR-CC status. Following discussions about the differences in these status, requested Full Code status at this time despite his significant comorbidities but did note that if things progressively worsened she would like to re-discuss. Advanced Care Planning Face to Face Time: 16 minutes. Charges/Coding Visit Charges Inpatient E&M: 53006 Init Hosp L3 Procedures Hospitalists Procedures: 43147 Advncd Care Plan 30 Min
--- NOTE | 2022-01-10 14:00 | RAD_ITS ---
STUDY: X-RAY CHEST REASON FOR EXAM: Male, 71 years old. Fever TECHNIQUE: Single AP portable view of the chest. COMPARISON: Comparison is made with prior study dated 08/24/2021. FINDINGS: EKG electrodes are seen. A right-sided double-lumen catheter is present with the tip in the right atrium. A right-sided unipolar pacemaker is present. There is evidence of a small left pleural effusion with left basilar infiltration. Mild increased markings are also seen at the right lung base. There is superimposed mild degree of CHF. Sternal cerclage wires and vascular clips are present from a prior sternotomy and coronary artery bypass graft procedure (CABG). Cardiomegaly. Normal mediastinum and max. Normal visualized pulmonary arteries. There is atherosclerotic calcification of the aortic arch with tortuosity. There are diffuse degenerative changes of the visualized thoracic spine. Normal visualized ribs, clavicles, and shoulders. There is no demonstrated abnormality of the visualized soft tissue structures of the upper abdomen. RAD/Chest 1 View (Portable) IMPRESSION: Small left pleural effusion with left basilar infiltrate. Increased markings at the right lung base. Mild degree of CHF. Electronically Signed: Donte Álvarez MD at 14:38 EST ,
--- NOTE | 2022-01-10 14:18 | NURSING ---
PCU WHITE SEPSIS, ALOC
--- NOTE | 2022-01-10 14:25 | CASEMGMT ---
GIO HEARN Assessment: RN CM to room to meet with patient for initial transition planning/care coordination assessment. GIO HEARN introduced self and role at [facility]. Patient appears drowsy at this time and history provided by Bre Amador who is present at bedside. Care providers, pharmacy, and demographics verified/updated at this time. Admitting Dx: sepsis, acute hypoxic respiratory failure, encephalopathy, bilateral pneumonia PCP: Vinny Atkinson Specialists: Kvng- nephrology, Mitchel- cardiology, Leydi- neurology, Pako- pulmonology, Johnny- oncology Preferred Pharmacy: [facility] Insurance: Medicare A/B & AARP Prescription Benefit: yes Living Will/HPOA: Patient has a living will and HPOA is Bre Amador. These forms are on file at [facility]. LNOK: Bre Amador Living Arrangements: Patient lives with in single story condo with 3 steps to enter the home and a handrail present. reports patient independent with ADLs prior to hospitalization. Per , patient typically ambulates independently without the use of an assistive device within the home but does use a cane when leaving the home. Patient uses an electric scooter for longer distances, such as when he attends grandchildren's sporting events. Smoking/ETOH: Never smoker, denies ETOH use Transportation: Patient does not drive. drives patient and denies transportation concerns. DME/HHC/SNF: Patient has a cane, walker, crutches, walk-in shower with chair, hand-held shower, grab bars, raised toilet seat, portable wheelchair, electric scooter, BP monitor and pulse oximeter at home. Patient has a CPAP supplied by [employer] (no oxygen bleed in). denies need for additional DME at this time. Previous HHC through [facility] HHC and previous SNF stay at [facility] in 2016 following abdominal surgery and [facility] in October 2021. reports patient has hemodialysis once a week on Tuesdays at [facility] but states there has been recent discussion with Dr. Calderon regarding increasing frequency to twice a week on Tuesdays and Saturdays. Patient has not yet started Sunday treatments. Patient's appears supportive and reports she would like to keep patient in their home, if possible. states, I can get any equipment I might need. is interested in HHC at time of hospital discharge. When offered list of HHC providers including quality and resource use data and consistent with the patient's preferred geographic region, declines, stating, We would just want this hospital's home health. CM to follow for any discharge planning/needs. Patient's voices no concerns/needs at this time. Advised patient's to ask for CM if any questions/concerns/needs arise. Voices understanding. Plan/goal: home with HHC
--- NOTE | 2022-01-10 14:25 | VDLE_ITS ---
Reason For Study: swelling Procedure LEFT This is a venous duplex using B-mode, color GSV is normal. flow and spectral Doppler. CFV is compressible, spontaneous, phasic, Exam performed portable in ED. competent, and demonstrates normal The exam was abbreviated due to the COVID 19 augmentation. protocol. FV is compressible, spontaneous, phasic, The exam was diagnostic. competent and demonstrates normal A preliminary report was called and/or faxed augmentation. to [facility]. POP V is compressible, spontaneous, phasic, competent and demonstrates normal augmentation. T/P Trunk is compressible. PTV is compressible. LT PerV is compressible. VL/Venous Duplex US, Unilateral Interpretation Summary There is no evidence of left lower extremity deep vein thrombosis. Left great s aphenous vein appears patent and compressible segmentally. COVID-19 protocol utilized Ordering Physician: Lenora Victoria Performed By: Diego Harding RVT
[2022-01-10 14:39] LABS: Lactic Acid 1.2 mmol/L (0.4-1.9)
[2022-01-10 19:00] LABS: Magnesium 1.6 mg/dL (1.6-2.6); Phosphorus 2.4 mg/dL (2.5-4.9)
--- NOTE | 2022-01-10 20:17 | PCM.RX.CS ---
Consult Pharmacy has been consulted to manage selected antiobiotic: Vancomycin Type of Consult: New start Prior Doses of Antibiotics Received/Current Regimen: Medications Discontinued Medications Vancomycin HCl 1,750 mg/ (Sodium Chloride) 535 mls @ 250 mls/hr IV X1 ONE Stop: 01/10/22 15:50 Last Admin: 01/10/22 19:35 Dose: Infused Documented by: Labs: Sodium 140 mmol/L (136-145) 01/10/22 10:20 Potassium 4.2 mmol/L (3.5-5.1) 01/10/22 10:20 Chloride 102 mmol/L (98-107) 01/10/22 10:20 Carbon Dioxide 30.0 mmol/L (21.0-32.0) 01/10/22 10:20 Anion Gap 8 (5-15) 01/10/22 10:20 BUN 25 mg/dL (7-18) H 01/10/22 10:20 Creatinine 1.83 mg/dL (0.70-1.30) H 01/10/22 10:20 Est GFR (MDRD) Af Amer 47 mL/min (>60) L 01/10/22 10:20 Est GFR (MDRD) Non-Af 39 mL/min (>60) L 01/10/22 10:20 BUN/Creatinine Ratio 13.7 RATIO (10-20) 01/10/22 10:20 Glucose 90 mg/dL (74-106) 01/10/22 10:20 Microbiology: Microbiology 01/10/22 15:20 Nasal Secretion SARS-CoV-2 Antigen (Rapid) - Final Weight used for dosin kg Estimated Creatinine Clearance: 76 mL/min Goal Trough: 15-20 mcg/mL Pharmacy Plan for Drug Dosinmg in ED, 1250mg IV q12h with trough prior to 4th dose. Pharmacy Service will continue to monitor and adjust dosing as required. Follow-Up Labs: Trough Vancomycin - 01/12 @ 0530
--- NOTE | 2022-01-10 20:26 | NURSING ---
Spoke with Dr Victoria re: blood pressures consistently with MAPs 55-64, current 108/36 (58). Per Dr Victoria, OK for MAPS in this range as long as SBP>90.
[2022-01-10 20:35] LABS: M R Staph aureus DNA By PCR Negative (Negative); Probe Check PASS; Specimen Processing Control PASS
[2022-01-10] MEDS: 0.9% Normal Saline 1,000 ML 100 ML IV (21:27)
[2022-01-10 21:47] LABS: Partial Thromboplast Time 52.8 Seconds (24.1-36.2)
[2022-01-10] MEDS: HEPARIN/D5w 25,000 UNITS 25,000 UNITS/250 ML IV.SOLN. 11 UNITS IV (21:53)
[2022-01-10 23:26] LABS: Procalcitonin 0.15 ng/mL (0.00-0.09)
[2022-01-11] VITALS (21 sets, daily range): BP systolic 105–128; BP diastolic 36–77; PULSE 70–80; RESP 16–26; TEMP 36.1–36.4; O2SAT 85–100
[2022-01-11] MEDS: Menthol/Lanolin/Calamine/Znox 113 GM Tube 1 APPLIC TOPICAL ×3 (00:45→21:07)
[2022-01-11 04:17] LABS: Absolute Lymphocyte Count 0.78 X10^3/uL (0.83-4.51); Absolute Neutrophil Count 3.8 X10^3/uL (2.0-7.7); Basophil# 0.02 X10^3/uL; Basophil% 0.4 % (0-1); Eosinophil# 0.17 X10^3/uL; Eosinophils% 3.3 % (0-5); Hematocrit 35.8 % (40-54); Hemoglobin 11.8 g/dL (13.0-16.5); Lymphocyte # 0.78 X10^3/ul (0.83-4.51); Mean Corpuscular Hgb 33.1 pg (27.0-32.0); Mean Corpuscular Volume 100.6 fL (80-94); Mean Platelet Vol. 10.3 fl (6.2-12.0); Monocyte# 0.45 X10^3/uL; Monocyte% 8.7 % (0-10); NRBC Flagged by Analyzer 0 % (0-5); Neutrophil # 3.76 X10^3/uL (2.7-7.7); Neutrophil % 72.2 % (47-70); POSITIVE COUNT YES; POSITIVE MORPHOLOGY YES; Platelet Count 86 K/mm3 (150-450); RBC Distribution Width CV 20.2 % (11.6-14.6); RBC Distribution Width SD 74.9 fl (35.1-43.9); Red Blood Count 3.56 M/mm3 (4.6-6.2); White Blood Count 5.2 K/mm3 (4.4-11.0)
[2022-01-11 04:18] LABS: Differential Indicated SCAN CRITERIA MET
[2022-01-11 04:31] LABS: Anisocytosis 2+
[2022-01-11 04:46] LABS: ALB/GLOB Ratio 0.8 RATIO (0.9-2.4); AST(SGOT) 45 U/L (15-37); Alanine Aminotransfer ALT/SGPT 30 U/L (16-61); Albumin, Serum 2.6 g/dL (3.2-5.0); Alkaline Phosphatase 227 U/L (45-117); Anion Gap 5 (5-15); BUN 32 mg/dL (7-18); Calcium,Total 8.4 mg/dL (8.5-10.1); Chloride 107 mmol/L (98-107); Creatinine, Serum 2.13 mg/dL (0.70-1.30); EST Glomerular Filtration Rate 33 mL/min (>60); Est Glom Filt Rate - Afr Amer 39 mL/min (>60); Estimated Creatinine Clearance 32.32 ml/min; Globulin 3.3 g/dL (2.2-4.2); Glucose 82 mg/dL (74-106); Protein, Total 5.9 g/dL (6.4-8.2); Sodium Level 142 mmol/L (136-145)
[2022-01-11 04:48] LABS: Partial Thromboplast Time 218.1 Seconds (24.1-36.2)
--- NOTE | 2022-01-11 06:11 | EX.PCM.CONCC ---
Assessment & Plan Assessment/Plan (1) Sepsis: PLAN: RECOMMENDATIONS: 1. Continue empiric antimicrobials while awaiting infectious diseases consultation. 2. Nephrology consultation to assist with hemodialysis needs. 3. Stop continuous IV fluids. 4. Continue as needed antiemetics. 5. Continue heparin infusion until the patient has been evaluated by speech therapy. 6. Wean supplemental oxygen to maintain saturations at or above 90%. 7. Encourage incentive spirometer use and mobilize patient as tolerated. IMPRESSIONS: 1. Sepsis The patient presented with sepsis due to possible infectious gastroenteritis versus pneumonia with acute sepsis related organ dysfunction as evidenced by documented blood pressures with a MAP less than 65, altered mentation and hyperbilirubinemia. Patient is currently followed by infectious diseases due to a recent history of fungemia with unclear source. In light of his presentation, a GI infectious work-up is currently underway. The patient has remained largely hemodynamically stable with supplemental IV fluid hydration. I would recommend conservative use of fluids, given the pleural effusions noted on chest imaging, coupled with a history of heart failure with preserved ejection fraction and pulmonary hypertension. While awaiting additional infectious work-up, plan to continue antimicrobials. 2. History of heart failure with preserved ejection fraction/pulmonary hypertension The patient does have evidence of pleural effusions and an elevated BNP. Anticipate improvement with volume optimization through hemodialysis. Wean supplemental oxygen for now for saturations greater than 90%. 3. Encephalopathy The patient has a complex medical history and has had extensive work-up over concerns for syncopal events since 2019. He was just recently seen by neurology. In the past, there has been some concern of a potential epileptic events versus vasovagal/vasodepressor etiology. At the present time, however, the patient's mentation appears to be improved. He has not had any episodes concerning for seizure activity. 4. End-stage renal disease on hemodialysis Nephrology has been consulted to assist with hemodialysis needs. 5. Liver cirrhosis with hyperammonemia Unclear etiology. The patient was previously on lactulose, which is on hold due to increased frequency of bowel movements. 6. Questionable seizure disorder Continue outpatient antiepileptic regimen and follow-up with neurology on outpatient basis. 7. History of VTE Continue heparin infusion as noted above until the patient has been cleared by speech therapy, after which time, the patient's Coumadin can be resumed. 8. Valvular heart disease/thrombocytopenia/hypothyroidism/paroxysmal atrial fibrillation/flutter Complicates care, management, recovery and prognosis. Continue home medications as indicated once cleared by speech therapy. Check TSH. This note was generated with eri[employer]oo dictation software. It may contain incorrect words, spelling, and punctuation that were not noted in checking the note before signing. HPI Consult Data Date of Consult: 01/11/22 HPI Narrative Reason for Consultation: Respiratory failure, pneumonia, sepsis HPI Narrative: The patient is a 71-year-old male, with a history as outlined below, who presented to the emergency department via EMS on January 10 after he became diaphoretic with decreased responsiveness during his dialysis session. The patient did have associated episodes of diarrhea as well. The patient has a complex medical history including sick sinus syndrome status post pacemaker placement, congestive heart failure, valvular heart disease, hypothyroidism, cirrhosis and chronic kidney disease. On presentation to the emergency department, the patient was noted to be afebrile and hemodynamically stable. Laboratory evaluation revealed no evidence of a leukocytosis. The patient does have chronic thrombocytopenia with a platelet count of 98,000. Chemistry profile was notable for a creatinine of 1.83 and phosphorus of 2.4. Lactate was normal at 1.2. Total bili was increased at 3.0. AST was increased at 74 with an alkaline phosphatase of 316. Ammonia level was elevated at 50. CT abdomen/pelvis revealed bilateral pleural effusions and ascites. Left lower extremity duplex ultrasound showed no evidence for DVT. The patient was initially treated with supplemental IV fluids along with antimicrobials. He was then admitted to the medical intensive care unit for further management. [facility] Medical History Abnormal results of thyroid function studies Airway intubation performed without difficulty Anemia in chronic kidney disease Atrial flutter Bacterial endocarditis Benign essential hypertension Biventricular cardiac pacemaker in situ (~05/26/16) CAD (coronary artery disease) Cardiomyopathy in disease classified elsewhere Cardiopulmonary arrest with successful resuscitation 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, stage III (moderate) Chronic renal insufficiency Coagulopathy COVID-19 Diffuse large b-cell lymphoma, extranodal and solid organ sites Dyspnea Encounter for long-term (current) use of high-risk medication Endocarditis due to Staphylococcus GI bleed Gout History of diffuse large B-cell lymphoma History of DVT (deep vein thrombosis) History of non-Hodgkin's lymphoma History of pacemaker History of rheumatic fever as a child Hyperthyroidism Hypothyroidism (acquired) Infectious endocarditis 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 MRSA (methicillin resistant Staphylococcus aureus) infection Non-rheumatic mitral regurgitation Non-rheumatic mitral valve stenosis Non-ST elevation (NSTEMI) myocardial infarction MIA (obstructive sleep apnea) Paroxysmal ventricular tachycardia Pure hypercholesterolemia Rheumatic aortic stenosis Rheumatic mitral insufficiency TIA (transient ischemic attack) (~11/19/15) Home Medications isosorbide mononitrate 30 mg tablet,extended release 24 hr 30 mg PO DAILY #90 tab 04/25/21 [Rx Last Taken 01/09/22] tamsulosin 0.4 mg PO DINNER 05/19/21 [History Last Taken 01/09/22] pantoprazole 40 mg tablet,delayed release 40 tablet PO DAILY 08/02/21 [History Last Taken 01/09/22] doxycycline hyclate 100 mg PO BID 08/24/21 [History Last Taken 01/09/22] levothyroxine 75 mcg PO DAILY 08/24/21 [History Last Taken 01/10/22] fluconazole 200 mg tablet 200 mg PO DAILY tab 10/31/21 [History Last Taken 01/09/22] ondansetron HCl 4 mg tablet 4 mg PO Q6H PRN 10/31/21 [History Last Taken 01/10/22 04:15] warfarin 1 mg tablet 4 mg PO MOTUWE tab 10/31/21 [History Last Taken 01/09/22] warfarin 5 mg tablet 2 mg PO SUTHFRSA tab 10/31/21 [History Last Taken 01/08/22] carvedilol 6.25 mg tablet 6.25 mg PO BID #180 tab 12/20/21 [Rx Last Taken 01/09/22] alprazolam 1 mg tablet 0.5 mg PO DAILY PRN tab 01/09/22 [History Last Taken 01/09/22] levetiracetam 500 mg tablet 500 mg PO BID #60 tab 01/09/22 [Rx Last Taken 01/09/22] levocarnitine 330 mg tablet 330 mg PO BID #60 tab 01/09/22 [Rx Last Taken Unknown] B complex-vitamin C-folic acid [Nephro-Baltazar] 1 tab PO DAILY 01/10/22 [History Last Taken 01/09/22] ferrous sulfate 325 mg PO DAILY 01/10/22 [History Last Taken 01/09/22] lactulose 10 ml PO BID 01/10/22 [History Last Taken 01/09/22] rifaximin 550 mg PO BID 01/10/22 [History Last Taken 01/09/22] Allergy/AdvReac Type Severity Reaction Status Date / Time No Known Allergies Allergy Verified 01/09/22 09:00 Family History Father CAD (coronary artery disease) CABG Brother CAD (coronary artery disease) CABG Mother Diabetes Sister Breast cancer Diabetes Sister Cancer breast Diabetes Surgical History dual chamber pacemaker implantation (~10/2010) History of aortic valve replacement (~08/2003) History of appendectomy History of atrioventricular chiquita ablation History of cholecystectomy History of evacuation of hematoma History of heart valve replacement with mechanical valve History of heart valve replacement with mechanical valve History of mechanical aortic valve replacement (~1986) History of mitral valve repair (~08/2003) Social History household members: spouse housing: house Smoking Status: Never smoker alcohol intake: never substance use type: does not use caffeine: No what type of physical activity do you participate in: weight training and other details: Nustep frequency: 3-4 times per week duration: 45-60 minutes/day seatbelt use: always do you feel safe at home: Yes ROS Constitutional Constitutional: Reports body ache(s), malaise and weakness Eyes Eyes: Denies blurry vision or change in vision ENT HEENT: Denies dysphagia, hoarseness or sore throat Cardiovascular Cardiovascular: Denies chest pain or dyspnea Respiratory/Chest Respiratory/Chest: Denies cough or dyspnea Gastrointestinal Gastrointestinal: Reports diarrhea, nausea and vomiting Genitourinary Genitourinary: Reports difficulty urinating Musculoskeletal Musculoskeletal: Denies arthralgias, back pain or joint pain Integumentary Integumentary: Denies lesions, rash or skin ulcer Neurologic Neurologic: Reports confusion Psychiatric Psychiatric: Denies anxiety or depression Endocrine Endocrinology: Denies fatigue Hematologic/Lymphatic Hematologic/Lymphatic: Denies easy bleeding or easy bruising Physical Exam Const alert and no apparent distress Constitutional Narrative: Resting comfortably in bed. Still has some residual confusion but is otherwise alert and appropriately interactive. General Appearance: cooperative HEENT normocephalic and head/scalp atraumatic Eyes PERRL and conjunctivae normal Neck supple General: trachea midline Chest inspection of chest normal Resp Auscultation: diminished lung sounds; Negative for rales, rhonchi or wheezes Cardio regular rate and regular rhythm Heart Sounds: murmur GI normal to inspection, nondistended, normoactive bowel sounds Extremity General Extremity: edema; Negative for clubbing Skin no rashes or lesions noted Neuro CN's II-XII intact bilaterally and no focal motor deficits Psych Mood & Affect: flat affect Lab / Micro Data Result Diagrams: 01/11/22 04:07 01/11/22 04:07 Labs: Laboratory Results - last 24 hr 01/10/22 10:20: WBC 8.1, RBC 4.49 L, Hgb 14.5, Hct 44.0, MCV 98.0 H, MCH 32.3 H, MCHC 33.0, RDW Std Deviation 71.7 H, RDW Coeff of Jennifer 20.3 H, Plt Count 98 L, MPV 11.5, Immature Gran % (Auto) 0.200, Neut % (Auto) 80.6 H, Lymph % (Auto) 9.9 L, Garrett % (Auto) 7.2, Eos % (Auto) 1.7, Baso % (Auto) 0.4, Absolute Neuts (auto) 6.5, Absolute Lymphs (auto) 0.80 L, Nucleated RBC % 0, Platelet Estimate MOD DEC, Poikilocytosis 1+, Anisocytosis 1+, Ovalocytes 1+ 01/10/22 10:20: Sodium 140, Potassium 4.2, Chloride 102, Carbon Dioxide 30.0, Anion Gap 8, BUN 25 H, Creatinine 1.83 H, Estim Creat Clear Calc 34.11, Est GFR (MDRD) Af Amer 47 L, Est GFR (MDRD) Non-Af 39 L, BUN/Creatinine Ratio 13.7, Glucose 90, Calcium 9.4, Total Bilirubin 3.00 H, AST 74 H, ALT 41, Alkaline Phosphatase 316 H, Troponin I High Sens 41, Total Protein 7.5, Albumin 3.2, Globulin 4.3 H, Albumin/Globulin Ratio 0.7 L, Lipase 109 01/10/22 10:20: PT 24.0 H, INR 2.2 01/10/22 10:20: Phosphorus 2.4 L, Magnesium 1.6 01/10/22 10:20: Procalcitonin 0.15 H 01/10/22 11:05: Ammonia Cancelled 01/10/22 11:30: Ammonia 50.0 H 01/10/22 14:05: Lactic Acid 1.2 01/10/22 17:30: MRSA (PCR) Negative 01/10/22 20:48: APTT 52.8 H 01/11/22 04:07: WBC 5.2, RBC 3.56 L, Hgb 11.8 L, Hct 35.8 L, MCV 100.6 H, MCH 33.1 H, MCHC 33.0, RDW Std Deviation 74.9 H, RDW Coeff of Jennifer 20.2 H, Plt Count 86 L, MPV 10.3, Immature Gran % (Auto) 0.400, Neut % (Auto) 72.2 H, Lymph % (Auto) 15.0 L, Garrett % (Auto) 8.7, Eos % (Auto) 3.3, Baso % (Auto) 0.4, Absolute Neuts (auto) 3.8, Absolute Lymphs (auto) 0.78 L, Nucleated RBC % 0, Anisocytosis 2+ 01/11/22 04:07: Sodium 142, Potassium 4.0, Chloride 107, Carbon Dioxide 30.0, Anion Gap 5, BUN 32 H, Creatinine 2.13 H, Estim Creat Clear Calc 32.32, Est GFR (MDRD) Af Amer 39 L, Est GFR (MDRD) Non-Af 33 L, BUN/Creatinine Ratio 15.0, Glucose 82, Calcium 8.4 L, Total Bilirubin 3.00 H, AST 45 H, ALT 30, Alkaline Phosphatase 227 H, Total Protein 5.9 L, Albumin 2.6 L, Globulin 3.3, Albumin/Globulin Ratio 0.8 L 01/11/22 04:07: Ammonia 46.0 H 01/11/22 04:07: APTT 218.1 H* Micro: Microbiology 01/10/22 20:00 Stool Stool Lactoferrin - Final 01/10/22 15:20 Nasal Secretion SARS-CoV-2 Antigen (Rapid) - Final Radiology Impression Abdomen/Pelvis CT 01/10/22 13:15 IMPRESSION: Bilateral pleural effusions with bibasilar atelectasis and/or infiltrates worse on the left side. Ascites. Status post cholecystectomy. Prostatic enlargement. Diffuse bladder wall thickening. Stable bilateral renal cysts. Electronically Signed: Donte Álvarez MD at 13:34 EST , Chest X-Ray 01/10/22 14:00 IMPRESSION: Small left pleural effusion with left basilar infiltrate. Increased markings at the right lung base. Mild degree of CHF. Electronically Signed: Donte Álvarez MD at 14:38 EST , Venous Doppler Study 01/10/22 14:25 Interpretation Summary There is no evidence of left lower extremity deep vein thrombosis. Left great saphenous vein appears patent and compressible segmentally. COVID-19 protocol utilized Ordering Physician: Lenora Victoria Performed By: Diego Harding RVT Charges/Coding Visit Charges Inpatient E&M: 14538 Init Hosp L3
--- NOTE | 2022-01-11 07:02 | PCM.PN.HOSP ---
Subjective Subjective Seen and examined. Patient is awake and alert responded to questions. Patient has protracted medical history of multiple disease and surgeries in the past. Her T-max 101.7 yesterday afternoon Objective Data Objective Data Vital Signs: Vital Signs Temp Pulse Resp BP Pulse Ox 97.6 F L 70 21 H 111/45 L 93 01/11/22 04:00 01/11/22 06:00 01/11/22 06:00 01/11/22 06:00 01/11/22 06:00 Oxygen Flow Rate (L/min) 2 Oxygen Delivery Method Nasal Cannula Weight: 159 lb 9.835 oz Body Mass Index (BMI) 23.0 Intake & Output: Intake and Output for Last 24 Hours 01/09/22 01/10/22 01/11/22 23:59 23:59 23:59 Intake Total 800 / 800 326.63 / 326.63 Output Total 0 / 0 Balance 800 / 800 326.63 / 326.63 Lab / Micro Data Result Diagrams: 01/11/22 04:07 01/11/22 04:07 Labs: Laboratory Results - last 24 hr 01/10/22 10:20: WBC 8.1, RBC 4.49 L, Hgb 14.5, Hct 44.0, MCV 98.0 H, MCH 32.3 H, MCHC 33.0, RDW Std Deviation 71.7 H, RDW Coeff of Jennifer 20.3 H, Plt Count 98 L, MPV 11.5, Immature Gran % (Auto) 0.200, Neut % (Auto) 80.6 H, Lymph % (Auto) 9.9 L, Bleckley % (Auto) 7.2, Eos % (Auto) 1.7, Baso % (Auto) 0.4, Absolute Neuts (auto) 6.5, Absolute Lymphs (auto) 0.80 L, Nucleated RBC % 0, Platelet Estimate MOD DEC, Poikilocytosis 1+, Anisocytosis 1+, Ovalocytes 1+ 01/10/22 10:20: Sodium 140, Potassium 4.2, Chloride 102, Carbon Dioxide 30.0, Anion Gap 8, BUN 25 H, Creatinine 1.83 H, Estim Creat Clear Calc 34.11, Est GFR (MDRD) Af Amer 47 L, Est GFR (MDRD) Non-Af 39 L, BUN/Creatinine Ratio 13.7, Glucose 90, Calcium 9.4, Total Bilirubin 3.00 H, AST 74 H, ALT 41, Alkaline Phosphatase 316 H, Troponin I High Sens 41, Total Protein 7.5, Albumin 3.2, Globulin 4.3 H, Albumin/Globulin Ratio 0.7 L, Lipase 109 01/10/22 10:20: PT 24.0 H, INR 2.2 01/10/22 10:20: Phosphorus 2.4 L, Magnesium 1.6 01/10/22 10:20: Procalcitonin 0.15 H 01/10/22 11:05: Ammonia Cancelled 01/10/22 11:30: Ammonia 50.0 H 01/10/22 14:05: Lactic Acid 1.2 01/10/22 17:30: MRSA (PCR) Negative 01/10/22 20:48: APTT 52.8 H 01/11/22 04:07: WBC 5.2, RBC 3.56 L, Hgb 11.8 L, Hct 35.8 L, MCV 100.6 H, MCH 33.1 H, MCHC 33.0, RDW Std Deviation 74.9 H, RDW Coeff of Jennifer 20.2 H, Plt Count 86 L, MPV 10.3, Immature Gran % (Auto) 0.400, Neut % (Auto) 72.2 H, Lymph % (Auto) 15.0 L, Bleckley % (Auto) 8.7, Eos % (Auto) 3.3, Baso % (Auto) 0.4, Absolute Neuts (auto) 3.8, Absolute Lymphs (auto) 0.78 L, Nucleated RBC % 0, Anisocytosis 2+ 01/11/22 04:07: Sodium 142, Potassium 4.0, Chloride 107, Carbon Dioxide 30.0, Anion Gap 5, BUN 32 H, Creatinine 2.13 H, Estim Creat Clear Calc 32.32, Est GFR (MDRD) Af Amer 39 L, Est GFR (MDRD) Non-Af 33 L, BUN/Creatinine Ratio 15.0, Glucose 82, Calcium 8.4 L, Total Bilirubin 3.00 H, AST 45 H, ALT 30, Alkaline Phosphatase 227 H, Total Protein 5.9 L, Albumin 2.6 L, Globulin 3.3, Albumin/Globulin Ratio 0.8 L 01/11/22 04:07: Ammonia 46.0 H 01/11/22 04:07: APTT 218.1 H* Micro: Microbiology 01/10/22 20:00 Stool Stool Lactoferrin - Final 01/10/22 15:20 Nasal Secretion SARS-CoV-2 Antigen (Rapid) - Final Radiography Diagnostic Testing: Radiology Impression Abdomen/Pelvis CT 01/10/22 13:15 IMPRESSION: Bilateral pleural effusions with bibasilar atelectasis and/or infiltrates worse on the left side. Ascites. Status post cholecystectomy. Prostatic enlargement. Diffuse bladder wall thickening. Stable bilateral renal cysts. Electronically Signed: Donte Álvarez MD at 13:34 EST , Chest X-Ray 01/10/22 14:00 IMPRESSION: Small left pleural effusion with left basilar infiltrate. Increased markings at the right lung base. Mild degree of CHF. Electronically Signed: Donte Álvarez MD at 14:38 EST , Venous Doppler Study 01/10/22 14:25 Interpretation Summary There is no evidence of left lower extremity deep vein thrombosis. Left great saphenous vein appears patent and compressible segmentally. COVID-19 protocol utilized Ordering Physician: Lenora Victoria Performed By: Diego Harding RVT Physical Exam Narrative Seen and examined. secured entrance monitor shows Pacemaker rhythm. H/o DVT In remote past. General: Alert, Oriented x3, Cooperative HEENT: Atraumatic, PERRLA, EOMI, Normocephalic Oral: No Gingival or Mucosal Lesions/ Ulcerations Neck: Supple, No JVD, Negative Carotid Bruits Lungs: Pacemaker in the right subclavicular region. Air entry diminished in bilateral lung bases. No crepitation/rhonchi Cardiovascular: paced rhythm, Normal S1, Normal S2, S/P AVR. valve adventious sound/murmur Abdomen: Scar in mid abdomen s/p rectal shealth hematoma revoval Bowel Sounds Present, Soft, Non Tender, Non-Distended : No renal angle tenderness. No suprapubic tenderness. Extremities: No edema, Capillary Refill Less than 3 Seconds Skin: No rashes, No breakdown Musculoskeletal: No Tenderness to Palpation of Joints or Extremities Neurological: Cranial nerves II-XII grossly intact, DTR 2+/4, power 4/5 at major joints Psych/Mental Status: Normal Affect, Appropriate. Assessment & Plan Assessment/Plan (1) Sepsis: QUALIFIERS: Sepsis acute organ dysfunction status: unspecified Sepsis type: sepsis due to unspecified organism Qualified Code(s): A41.9 - Sepsis, unspecified organism (2) Acute respiratory failure with hypoxia: (3) Pneumonia: QUALIFIERS: Laterality: bilateral Lung location: unspecified part of lung Pneumonia type: due to unspecified organism Qualified Code(s): J18.9 - Pneumonia, unspecified organism (4) Acute encephalopathy: PLAN: The patient is a 71 y/o M is admitted in ICU through ED for respiratory failure pneumonia and sepsis. The patient was brought by EMS for fever with decreased responsiveness during the dialysis session, diaphoretic, abdominal cramps with, nausea, vomiting episodes of diarrhea. #1. Acute Encephalopathy, multifactorial probably due to sepsis along with with history of recent Marika fungemia, metabolic, hepatic encephalopathy with history of cirrhosis, ESRD on dialysis and other multiple comorbidities and polypharmacy: The patient is being comanaged with testing and regulating technician. Patient is awake and alert. Responding questions appropriately. Acute encephalopathy much improved. Patient allowed oral diet after nursing screening. Home medication reconciliation done. #2. Sepsis due to Bilateral lower lobe pneumonia likely due to norovirus viral pneumonia, with suspicion of bacterial superinfection and recent Marika fungemia: Blood cultures x2 have been sent. qSOFA score is 2/3 with altered mental status and tachypnea On fluconazole IV. Respiratory panel positive for norovirus. Patient on vancomycin and Zosyn. Consult ID. Patient denies nasal pain/fullness. Denies headache. Has mild chronic sinus congestion. Patient had recent outside voice evaluation, 2 out of 2 blood cultures on 08/10/2021 showed no growth at that time. Unclear source but had incidence of previous fungemia multiholed through 1 year as per previous ENT notes. #3. Possible acute gastroenterocolitis with history of decompensated cirrhosis: Patient takes lactulose to goal of 3 bowel movements per day. Stool for c-diff, stool culture, ova impressed have been ordered along with supportive regimen for symptomatic management. Unclear if it is because of lactulose. #4. Recent TIEN on CKD stage IV secondary to ATN likely secondary to long-term Diflucan and doxycycline requiring HD w/ tunneled dialysis catheter: Admission BUN/Cr 25/1.83, baseline renal function previously noted 2.53. Digital Asset Specialist Dr. Calderon is consulted. #5. Decompensated cirrhosis with history of hepatic encephalopathy, thrombocytopenia possibly due to [place] cirrhosis for cardiac cirrhosis: Patient on lactulose and Xifaxan as an outpatient. Continued #6. Seizure disorder: Patient with recent evaluation at [facility] with concern for seizure with no marked evidence noted on EEG per report however given concern patient was continued on empiric Keppra with encourage continued outpatient follow-up with neurology. On IV Keppra. #7. Valvular heart disease with history of prior endocarditis: Hx MVR and status post mechanical aortic valve secondary to history of previous rheumatic heart disease, goal INR 2.5-3.5, TTE at [facility] 10/2021 without any evidence of any vegetations at that time with noted EF 50-55%, well-seated mechanical aortic valve, mean aortic valve gradient of 11 mmHg and mild to moderate perivalvular and valvular regurgitation, mean mitral valve gradient 6 mmHg and mild mitral valve rotation, RVSP 53 mmHg similar to 05/2021 ECHO. 01/11: Plan Home dose of warfarin resumed. INR 2.2 on 01/10. Repeat INR ordered. #8. Chronic thrombocytopenia: Admission platelets 98, baseline about 70,000. Her baseline. Monitor CBC daily #9. Chronic normocytic anemia/anemia of chronic kidney disease chronic diagnosis anemia mixed: A hemoglobin 11.8. On baseline. Admission hemoglobin 14.5 g may be hemoconcentrated. Next #10. Hypothyroidism: patient levothyroxine regimen. Resumed. 11: History of DVT in lower leg and upper extremity. VTE study of left lower extremity was negative. #12. Hypertension: Blood pressure regimen carvedilol resumed. Normotensive. #13. History of VTE: Patient with prior history of DVT and upper extremity clots, patient did report subtherapeutic INR's at [facility], left lower extremity with increased edema, to be cautious despite therapeutic Coumadin will obtain duplex ultrasound in case this occurred during that timeline and he has chronic swelling associated. #14. 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 hospital monitor shows paced rhythm. #15. CODE status: Patient BRENT is his . As per admitting hospitalist, full code. Total time of the visit including total time spent in counseling or coordination of care, (more than 50% of the total time, spent in obtaining medical information from nurses and other ancillary care providers,explaining to the patient about labs, imaging, diagnosis and management), discussion with sap business intelligence consultant, review of labs and imaging is 40 minutes. Charges/Coding Visit Charges Inpatient E&M: 59978 Subs Hosp L3
--- NOTE | 2022-01-11 08:57 | PCM.CONS.R ---
Assessment & Plan Assessment/Plan (1) CKD stage G5/A1, GFR <15 and albumin creatinine ratio <30 mg/g: PLAN: HD qTues. Last dialysis yesterday. May increase frequency to twice a week (/Sun) if encephalopathy, weakness persists. Recent 24h urine CRCL 13cc/min on 01/03/22.Likely has ATN no recovery. Currently TIEN on CKD. (2) Sepsis: PLAN: await cx, renal dose antibiotics (3) Acute encephalopathy: PLAN: improved today (4) Hyperammonemia: PLAN: xifaxan (5) History of heart valve replacement with mechanical valve: PLAN: on anticoagulation (6) Norovirus: HPI Consult Data Date of Consult: 01/11/22 HPI Narrative Reason for Consultation: Renal failure, dialysis mgmt HPI Narrative: CHRISTIAN RICHMOND, is a 71 M admitted to ICU for progressive decline in health with increased fatigue, weakness, poor appetite with intractable nausea, vomiting. He is being evaluated for sepsis. He presented to ER with fever. He was transferred from dialysis center yesterday after his treatment for evaluation. He has been on dialysis once a week since 10/22/21 after his discharge from [facility] for fungemia. He was started on dialysis during his hospitalization at [facility] for Acute on CKD stage 4 from sepsis with no recovery. He was taken off dialysis for 2 weeks in November with 24h urine CRCL 19cc/min then started back on dialysis for uremic symptoms. Repeat 24h urine CRCL 12cc/min on 01/03/22. He has been pancultured and started on iv antibiotics. Stool cx positive for norovirus He has an extensive medical history with TIEN on CKD stage 4 with no recovery, CAD, Valvular Heart Disease s/p AVR mechanical on coumadin, MIA, HTN, HLD, Hx High Grade B Cell lymphoma in remission, BPH, PAFlutter s/p ablation, hyperammonemia on xifaxin. [facility] Medical History Abnormal results of thyroid function studies Airway intubation performed without difficulty Anemia in chronic kidney disease Atrial flutter Bacterial endocarditis Benign essential hypertension Biventricular cardiac pacemaker in situ (~05/26/16) CAD (coronary artery disease) Cardiomyopathy in disease classified elsewhere Cardiopulmonary arrest with successful resuscitation 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, stage III (moderate) Chronic renal insufficiency Coagulopathy COVID-19 Diffuse large b-cell lymphoma, extranodal and solid organ sites Dyspnea Encounter for long-term (current) use of high-risk medication Endocarditis due to Staphylococcus GI bleed Gout History of diffuse large B-cell lymphoma History of DVT (deep vein thrombosis) History of non-Hodgkin's lymphoma History of pacemaker History of rheumatic fever as a child Hyperthyroidism Hypothyroidism (acquired) Infectious endocarditis 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) use of 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 MRSA (methicillin resistant Staphylococcus aureus) infection Non-rheumatic mitral regurgitation Non-rheumatic mitral valve stenosis Non-ST elevation (NSTEMI) myocardial infarction MIA (obstructive sleep apnea) Paroxysmal ventricular tachycardia Pure hypercholesterolemia Rheumatic aortic stenosis Rheumatic mitral insufficiency TIA (transient ischemic attack) (~11/19/15) Home Medications isosorbide mononitrate 30 mg tablet,extended release 24 hr 30 mg PO DAILY #90 tab 04/25/21 [Rx Last Taken 01/09/22] tamsulosin 0.4 mg PO DINNER 05/19/21 [History Last Taken 01/09/22] pantoprazole 40 mg tablet,delayed release 40 tablet PO DAILY 08/02/21 [History Last Taken 01/09/22] doxycycline hyclate 100 mg PO BID 08/24/21 [History Last Taken 01/09/22] levothyroxine 75 mcg PO DAILY 08/24/21 [History Last Taken 01/10/22] fluconazole 200 mg tablet 200 mg PO DAILY tab 10/31/21 [History Last Taken 01/09/22] ondansetron HCl 4 mg tablet 4 mg PO Q6H PRN 10/31/21 [History Last Taken 01/10/22 04:15] warfarin 1 mg tablet 4 mg PO MOTUWE tab 10/31/21 [History Last Taken 01/09/22] warfarin 5 mg tablet 2 mg PO SUTHFRSA tab 10/31/21 [History Last Taken 01/08/22] carvedilol 6.25 mg tablet 6.25 mg PO BID #180 tab 12/20/21 [Rx Last Taken 01/09/22] alprazolam 1 mg tablet 0.5 mg PO DAILY PRN tab 01/09/22 [History Last Taken 01/09/22] levetiracetam 500 mg tablet 500 mg PO BID #60 tab 01/09/22 [Rx Last Taken 01/09/22] levocarnitine 330 mg tablet 330 mg PO BID #60 tab 01/09/22 [Rx Last Taken Unknown] B complex-vitamin C-folic acid [Nephro-Baltazar] 1 tab PO DAILY 01/10/22 [History Last Taken 01/09/22] ferrous sulfate 325 mg PO DAILY 01/10/22 [History Last Taken 01/09/22] lactulose 10 ml PO BID 01/10/22 [History Last Taken 01/09/22] rifaximin 550 mg PO BID 01/10/22 [History Last Taken 01/09/22] Allergy/AdvReac Type Severity Reaction Status Date / Time No Known Allergies Allergy Verified 01/09/22 09:00 Family History Father CAD (coronary artery disease) CABG Brother CAD (coronary artery disease) CABG Mother Diabetes Sister Breast cancer Diabetes Sister Cancer breast Diabetes Surgical History dual chamber pacemaker implantation (~10/2010) History of aortic valve replacement (~08/2003) History of appendectomy History of atrioventricular chiquita ablation History of cholecystectomy History of evacuation of hematoma History of heart valve replacement with mechanical valve History of heart valve replacement with mechanical valve History of mechanical aortic valve replacement (~1986) History of mitral valve repair (~08/2003) Social History household members: spouse housing: house Smoking Status: Never smoker alcohol intake: never substance use type: does not use caffeine: No what type of physical activity do you participate in: weight training and other details: Nustep frequency: 3-4 times per week duration: 45-60 minutes/day seatbelt use: always do you feel safe at home: Yes ROS Review of Systems ROS Unobtainable: other Details: at bedside Constitutional Constitutional: Reports malaise and weakness; Denies chills or fever(s) Cardiovascular Cardiovascular: Denies chest pain Respiratory/Chest Respiratory/Chest: Reports shortness of breath at rest; Denies hemoptysis Gastrointestinal Gastrointestinal: Reports diarrhea, nausea and vomiting; Denies abdominal pain Genitourinary Genitourinary: Reports other Details: oilguria Musculoskeletal Musculoskeletal: Reports other Details: gen weakness Neurologic Neurologic: Reports frequent falls and weakness; Denies seizures Psychiatric Psychiatric: Reports depression Endocrine Endocrinology: Reports fatigue Hematologic/Lymphatic Hematologic/Lymphatic: Reports anemia Physical Exam Const alert and oriented x3 Constitutional Narrative: more awake, responsive, appetite improved Eyes EOMs intact bilaterally Resp clear to auscultation bilaterally Cardio regular rate Cardio Narrative: paced GI non-tender and non-distended Palpation: soft Extremity General Extremity: edema left Skin no wounds Neuro Sensorium / Orientation: awake and alert Psych cooperative Lab / Micro Data Result Diagrams: 01/11/22 04:07 01/11/22 04:07 Labs: Laboratory Results - last 24 hr 01/10/22 10:20: WBC 8.1, RBC 4.49 L, Hgb 14.5, Hct 44.0, MCV 98.0 H, MCH 32.3 H, MCHC 33.0, RDW Std Deviation 71.7 H, RDW Coeff of Jennifer 20.3 H, Plt Count 98 L, MPV 11.5, Immature Gran % (Auto) 0.200, Neut % (Auto) 80.6 H, Lymph % (Auto) 9.9 L, Waller % (Auto) 7.2, Eos % (Auto) 1.7, Baso % (Auto) 0.4, Absolute Neuts (auto) 6.5, Absolute Lymphs (auto) 0.80 L, Nucleated RBC % 0, Platelet Estimate MOD DEC, Poikilocytosis 1+, Anisocytosis 1+, Ovalocytes 1+ 01/10/22 10:20: Sodium 140, Potassium 4.2, Chloride 102, Carbon Dioxide 30.0, Anion Gap 8, BUN 25 H, Creatinine 1.83 H, Estim Creat Clear Calc 34.11, Est GFR (MDRD) Af Amer 47 L, Est GFR (MDRD) Non-Af 39 L, BUN/Creatinine Ratio 13.7, Glucose 90, Calcium 9.4, Total Bilirubin 3.00 H, AST 74 H, ALT 41, Alkaline Phosphatase 316 H, Troponin I High Sens 41, Total Protein 7.5, Albumin 3.2, Globulin 4.3 H, Albumin/Globulin Ratio 0.7 L, Lipase 109 01/10/22 10:20: PT 24.0 H, INR 2.2 01/10/22 10:20: Phosphorus 2.4 L, Magnesium 1.6 01/10/22 10:20: Procalcitonin 0.15 H 01/10/22 11:05: Ammonia Cancelled 01/10/22 11:30: Ammonia 50.0 H 01/10/22 14:05: Lactic Acid 1.2 01/10/22 17:30: MRSA (PCR) Negative 01/10/22 20:48: APTT 52.8 H 01/11/22 04:07: WBC 5.2, RBC 3.56 L, Hgb 11.8 L, Hct 35.8 L, MCV 100.6 H, MCH 33.1 H, MCHC 33.0, RDW Std Deviation 74.9 H, RDW Coeff of Jennifer 20.2 H, Plt Count 86 L, MPV 10.3, Immature Gran % (Auto) 0.400, Neut % (Auto) 72.2 H, Lymph % (Auto) 15.0 L, Waller % (Auto) 8.7, Eos % (Auto) 3.3, Baso % (Auto) 0.4, Absolute Neuts (auto) 3.8, Absolute Lymphs (auto) 0.78 L, Nucleated RBC % 0, Anisocytosis 2+ 01/11/22 04:07: Sodium 142, Potassium 4.0, Chloride 107, Carbon Dioxide 30.0, Anion Gap 5, BUN 32 H, Creatinine 2.13 H, Estim Creat Clear Calc 32.32, Est GFR (MDRD) Af Amer 39 L, Est GFR (MDRD) Non-Af 33 L, BUN/Creatinine Ratio 15.0, Glucose 82, Calcium 8.4 L, Total Bilirubin 3.00 H, AST 45 H, ALT 30, Alkaline Phosphatase 227 H, Total Protein 5.9 L, Albumin 2.6 L, Globulin 3.3, Albumin/Globulin Ratio 0.8 L 01/11/22 04:07: Ammonia 46.0 H 01/11/22 04:07: APTT 218.1 H* Micro: Microbiology 01/10/22 20:00 Stool Stool Lactoferrin - Final 01/10/22 15:20 Nasal Secretion SARS-CoV-2 Antigen (Rapid) - Final Radiology Impression Abdomen/Pelvis CT 01/10/22 13:15 IMPRESSION: Bilateral pleural effusions with bibasilar atelectasis and/or infiltrates worse on the left side. Ascites. Status post cholecystectomy. Prostatic enlargement. Diffuse bladder wall thickening. Stable bilateral renal cysts. Electronically Signed: Donte Álvarez MD at 13:34 EST , Chest X-Ray 01/10/22 14:00 IMPRESSION: Small left pleural effusion with left basilar infiltrate. Increased markings at the right lung base. Mild degree of CHF. Electronically Signed: Donte Álvarez MD at 14:38 EST , Venous Doppler Study 01/10/22 14:25 Interpretation Summary There is no evidence of left lower extremity deep vein thrombosis. Left great saphenous vein appears patent and compressible segmentally. COVID-19 protocol utilized Ordering Physician: Lenora Victoria Performed By: Diego Harding, RVT
--- NOTE | 2022-01-11 09:23 | CASEMGMT ---
Social Work Pt does have a living will and health care POA naming his Bre Mcguire. Copies printed off of EMR and placed on pt chart. ELAYNE Low
[2022-01-11 09:40] LABS: BNP,B-Type NATRIURETIC PEPTIDE 1573.3 pg/mL (0-100)
[2022-01-11 09:48] LABS: Procalcitonin 0.83 ng/mL (0.00-0.09); Thyroid Stim Hormone (TSH) 1.42 uIU/mL (0.358-3.74)
[2022-01-11 10:20] LABS: Mucous, Urine 0 SEEN /hpf (<or=2+)
[2022-01-11 10:24] LABS: Color, Urine Amber (Yellow); Glucose, Dipstick Normal (Normal); Ketone-Dipstick Negative (Negative); Leukocyte Esterase-Dipstick 25 /ul (Negative); Nitrite-Dipstick Negative (Negative); Occult Blood-Urine 25 /ul (Negative); Protein-Dipstick 30 mg/dl (Negative); Specific Gravity, Urine 1.025 (1.002-1.030); Urine Clarity Clear (Clear); Urine Urobilinogen Normal (Normal)
[2022-01-11 10:31] LABS: Urine Bilirubin Dipstick 1 mg/dL (Negative)
[2022-01-11 10:39] LABS: Bacteria RARE /hpf (None Seen); Red Blood Cells-Urine 0-5 SEEN /hpf (0-5); Squamous Epithelial Cells - UA 0-5 SEEN /hpf (0-5); White Blood Cells 0-5 SEEN /hpf (0-5)
--- NOTE | 2022-01-11 10:58 | PCM.RX.CS ---
Consult Pharmacy has been consulted to manage selected antiobiotic: Vancomycin Type of Consult: Follow-up Suspected Infection: Sepsis, Pneumonia Prior Doses of Antibiotics Received/Current Regimen: Received 1750mg iv x 1 post dialysis on 01.10.22. Labs: Sodium 142 mmol/L (136-145) 01/11/22 04:07 Potassium 4.0 mmol/L (3.5-5.1) 01/11/22 04:07 Chloride 107 mmol/L (98-107) 01/11/22 04:07 Carbon Dioxide 30.0 mmol/L (21.0-32.0) 01/11/22 04:07 Anion Gap 5 (5-15) 01/11/22 04:07 BUN 32 mg/dL (7-18) H 01/11/22 04:07 Creatinine 2.13 mg/dL (0.70-1.30) H 01/11/22 04:07 Est GFR (MDRD) Af Amer 39 mL/min (>60) L 01/11/22 04:07 Est GFR (MDRD) Non-Af 33 mL/min (>60) L 01/11/22 04:07 BUN/Creatinine Ratio 15.0 RATIO (10-20) 01/11/22 04:07 Glucose 82 mg/dL (74-106) 01/11/22 04:07 Microbiology: Microbiology 01/10/22 20:00 Stool Stool Lactoferrin - Final 01/10/22 20:00 Stool C. difficile DNA Amplification - Final 01/10/22 15:20 Nasal Secretion SARS-CoV-2 Antigen (Rapid) - Final Weight used for dosin.4 kg Estimated Creatinine Clearance: 32 ml/min Goal Trough: 15-20 mcg/mL Pharmacy Plan for Drug Dosing: Noted to be dialysis patient q Tues. Todays' renal function of Cr 2.13 and CrCl ~32 ml/min. Have ordered random level for AM 01.12.22. Pharmacy Service will continue to monitor and adjust dosing as required. Follow-Up Labs: Trough Vancomycin - random level 01.12.22@0600
[2022-01-11 11:56] LABS: International Normalized Ratio 2.8; Prothrombin Time (Protime)PT. 28.7 SECONDS (11.7-14.9)
[2022-01-11] MEDS: rifAXIMin 550 MG Tablet PO ×2 (12:09→20:59)
[2022-01-11] MEDS: Folic Acid/Vitamin B Comp W-C 1 Capsule 1 CAP PO (12:09)
[2022-01-11] MEDS: Ferrous Sulfate 325 MG Tablet PO (12:09)
[2022-01-11] MEDS: Carvedilol 3.125 MG TABLET PO ×2 (12:09→20:59)
[2022-01-11] MEDS: 0.9% Saline Lock 10 ML Syringe IV (12:10)
--- NOTE | 2022-01-11 12:56 | CASEMGMT ---
Addendum entered by Erica Ruelas 01/11/22 13:59: GIO HEARN received call back from [facility] and they are not able to accept the patient. GIO HEARN in to discuss with patient and . Patient was provided a list of [facility] providers including quality and resource use data and consistent with the patient?s preferred geographic region, medical needs, and insurance network. The patient?s preferred provider is [facility]. GIO HEARN faxed referral to [facility], awaiting call back. CM will continue to follow this patient and plan for a safe discharge. Original Note: GIO HEARN in to discuss discharge needs with patient and . Patient and would like [facility] at discharge for nursing and therapy and prefer [facility]. RN DHIRAJ called and left message for referral. Awaiting call back. CM will continue to follow this patient and plan for a safe discharge.
--- NOTE | 2022-01-11 15:03 | CHAPLAIN ---
Type of Pastoral Visit _x__ Initial Visit ___ Follow-up Visit ___ On-call Visit ___ General Patient Visit ___ Spiritual Assessment ___ Family Conference ___ Bereavement ___ Rapid Response ___ Code Blue ___ Other (describe below) Pastoral Care Referral From _x__ Patient ___ Family ___ Nurse ___ Physician ___ Middle School Librarian ___ Special Services Agent ___ Other (describe below) Sacrament/Intervention _x__ Active listening ___ Anointing ___ Worship ___ Bereavement ___ Communion ___ Leda exploration ___ _x__ Life review _x__ Prayer ___ Reconciliation ___ Sacrament of Sick _x__ Supportive presence ___ Wedding ___ Other (describe below) Pastoral Comments sat at bedside with patient and his spouse; listened to life/health review of pt who has endured many illnesses; pt has insight and also reports acceptance for overall illness and needs; spouse interacts and adds details in conversation
--- NOTE | 2022-01-11 17:00 | PCM.CONS.GEN ---
Assessment & Plan Assessment/Plan (1) Norovirus: PLAN: Norovirus (+). Likely explanation for his acute illness and improving symptoms. Cxs neg so far. Will stop vanc. Cont zosyn for now, likely can stop tomorrow. Will follow, thank you. Pt is covid vaccinated x3. On shelter doxy and fluc. (2) CKD stage G5/A1, GFR <15 and albumin creatinine ratio <30 mg/g: (3) Acute encephalopathy: HPI Consult Data Date of Consult: 01/11/22 HPI Narrative HPI Narrative: CHRISTIAN RICHMOND, is a 71 M who presented 01/10 with one day history of n/v/d, fatigue, confusion. No sick contacts, no unusual foods. feeling fine. Sx worsened while at HD, sent to ED. Fever here, admitted on vanc/zosyn, continued on shelter fluc. Found to have norovirus. Feeling better today. Full ROS performed and neg except as noted above. [facility] Medical History Abnormal results of thyroid function studies Airway intubation performed without difficulty Anemia in chronic kidney disease Atrial flutter Bacterial endocarditis Benign essential hypertension Biventricular cardiac pacemaker in situ (~05/26/16) CAD (coronary artery disease) Cardiomyopathy in disease classified elsewhere Cardiopulmonary arrest with successful resuscitation 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, stage III (moderate) Chronic renal insufficiency Coagulopathy COVID-19 Diffuse large b-cell lymphoma, extranodal and solid organ sites Dyspnea Encounter for long-term (current) use of high-risk medication Endocarditis due to Staphylococcus GI bleed Gout History of diffuse large B-cell lymphoma History of DVT (deep vein thrombosis) History of non-Hodgkin's lymphoma History of pacemaker History of rheumatic fever as a child Hyperthyroidism Hypothyroidism (acquired) Infectious endocarditis 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 MRSA (methicillin resistant Staphylococcus aureus) infection Non-rheumatic mitral regurgitation Non-rheumatic mitral valve stenosis Non-ST elevation (NSTEMI) myocardial infarction MIA (obstructive sleep apnea) Paroxysmal ventricular tachycardia Pure hypercholesterolemia Rheumatic aortic stenosis Rheumatic mitral insufficiency TIA (transient ischemic attack) (~11/19/15) Home Medications isosorbide mononitrate 30 mg tablet,extended release 24 hr 30 mg PO DAILY #90 tab 04/25/21 [Rx Last Taken 01/09/22] tamsulosin 0.4 mg PO DINNER 05/19/21 [History Last Taken 01/09/22] pantoprazole 40 mg tablet,delayed release 40 tablet PO DAILY 08/02/21 [History Last Taken 01/09/22] doxycycline hyclate 100 mg PO BID 08/24/21 [History Last Taken 01/09/22] levothyroxine 75 mcg PO DAILY 08/24/21 [History Last Taken 01/10/22] fluconazole 200 mg tablet 200 mg PO DAILY tab 10/31/21 [History Last Taken 01/09/22] ondansetron HCl 4 mg tablet 4 mg PO Q6H PRN 10/31/21 [History Last Taken 01/10/22 04:15] warfarin 1 mg tablet 4 mg PO MOTUWE tab 10/31/21 [History Last Taken 01/09/22] warfarin 5 mg tablet 2 mg PO SUTHFRSA tab 10/31/21 [History Last Taken 01/08/22] carvedilol 6.25 mg tablet 6.25 mg PO BID #180 tab 12/20/21 [Rx Last Taken 01/09/22] alprazolam 1 mg tablet 0.5 mg PO DAILY PRN tab 01/09/22 [History Last Taken 01/09/22] levetiracetam 500 mg tablet 500 mg PO BID #60 tab 01/09/22 [Rx Last Taken 01/09/22] levocarnitine 330 mg tablet 330 mg PO BID #60 tab 01/09/22 [Rx Last Taken Unknown] B complex-vitamin C-folic acid [Nephro-Baltazar] 1 tab PO DAILY 01/10/22 [History Last Taken 01/09/22] ferrous sulfate 325 mg PO DAILY 01/10/22 [History Last Taken 01/09/22] lactulose 10 ml PO BID 01/10/22 [History Last Taken 01/09/22] rifaximin 550 mg PO BID 01/10/22 [History Last Taken 01/09/22] Allergy/AdvReac Type Severity Reaction Status Date / Time No Known Allergies Allergy Verified 01/09/22 09:00 Family History Father CAD (coronary artery disease) CABG Brother CAD (coronary artery disease) CABG Mother Diabetes Sister Breast cancer Diabetes Sister Cancer breast Diabetes Surgical History dual chamber pacemaker implantation (~10/2010) History of aortic valve replacement (~08/2003) History of appendectomy History of atrioventricular chiquita ablation History of cholecystectomy History of evacuation of hematoma History of heart valve replacement with mechanical valve History of heart valve replacement with mechanical valve History of mechanical aortic valve replacement (~1986) History of mitral valve repair (~08/2003) Social History household members: spouse housing: house Smoking Status: Never smoker alcohol intake: never substance use type: does not use caffeine: No what type of physical activity do you participate in: weight training and other details: Nustep frequency: 3-4 times per week duration: 45-60 minutes/day seatbelt use: always do you feel safe at home: Yes Physical Exam Const alert and no apparent distress General Appearance: cooperative Exam Limitations: no limitations HEENT normocephalic and head/scalp atraumatic Eyes PERRL and EOMs intact bilaterally Neck supple and No nodes Resp normal air movement and clear to auscultation bilaterally Cardio regular rate and regular rhythm GI soft to palpation, non-tender and non-distended Skin no rashes or lesions noted Neuro CN's II-XII intact bilaterally Medical Records Data Medical Nutrition Assessment Dietitian: Malnutrition Criteria Met Start: 01/11/22 11:13 Freq: Status: Active Protocol: Document 01/11/22 11:13 AG (Rec: 01/11/22 11:40 AG [id number]) Nutrition Malnutrition Evidence of Malnutrition Exists Yes Malnutrition (severe): Chronic Evidenced By Suboptimal Energy Intake ( Severe),Weight Loss (Severe), Physical Changes (Severe) Clinical Problem Chronic Disease or Condition Related Malnutrition Etiology severe, chronic malnutrition r /t inadequate energy intake w/ increased energy needs d/t diaylsis Signs/Symptoms as evidenced by unintentional wt loss of 27.6#/14.7% x 4 months, estimated PO intake meeting <75% of estimated energy needs >3 months; obvious severe muscle wasting/ fat loss upon physical exam in orbital, temporal, acromion, and clavicle regions. Status Active Problem Recommendation Dietitian Recommendations/Changes sodium restricted diet; ensure clear w/ breakfast and dinner and magic cup w/ lunch Lab / Micro Data Result Diagrams: 01/11/22 04:07 01/11/22 04:07 Labs: Laboratory Results - last 24 hr 01/10/22 10:20: Phosphorus 2.4 L, Magnesium 1.6 01/10/22 10:20: Procalcitonin 0.15 H 01/10/22 17:30: MRSA (PCR) Negative 01/10/22 20:48: APTT 52.8 H 01/11/22 04:07: WBC 5.2, RBC 3.56 L, Hgb 11.8 L, Hct 35.8 L, MCV 100.6 H, MCH 33.1 H, MCHC 33.0, RDW Std Deviation 74.9 H, RDW Coeff of Jennifer 20.2 H, Plt Count 86 L, MPV 10.3, Immature Gran % (Auto) 0.400, Neut % (Auto) 72.2 H, Lymph % (Auto) 15.0 L, [place] % (Auto) 8.7, Eos % (Auto) 3.3, Baso % (Auto) 0.4, Absolute Neuts (auto) 3.8, Absolute Lymphs (auto) 0.78 L, Nucleated RBC % 0, Anisocytosis 2+ 01/11/22 04:07: Sodium 142, Potassium 4.0, Chloride 107, Carbon Dioxide 30.0, Anion Gap 5, BUN 32 H, Creatinine 2.13 H, Estim Creat Clear Calc 32.32, Est GFR (MDRD) Af Amer 39 L, Est GFR (MDRD) Non-Af 33 L, BUN/Creatinine Ratio 15.0, Glucose 82, Calcium 8.4 L, Total Bilirubin 3.00 H, AST 45 H, ALT 30, Alkaline Phosphatase 227 H, Total Protein 5.9 L, Albumin 2.6 L, Globulin 3.3, Albumin/Globulin Ratio 0.8 L 01/11/22 04:07: Ammonia 46.0 H 01/11/22 04:07: APTT 218.1 H* 01/11/22 09:20: B-Natriuretic Peptide 1573.3 H 01/11/22 09:20: Procalcitonin 0.83 H 01/11/22 09:20: TSH 1.42 01/11/22 09:20: PT 28.7 H, INR 2.8 01/11/22 10:05: Urine Color Jaelyn, Urine Clarity Clear, Urine pH 5.0, Ur Specific [place] 1.025, Urine Protein 30 H, Urine Glucose (UA) Normal, Urine Ketones Negative, Urine Occult Blood 25 H, Urine Nitrite Negative, Urine Bilirubin 1 H, Urine Urobilinogen Normal, Ur Leukocyte Esterase 25 H, Urine RBC 0-5 SEEN, Urine WBC 0-5 SEEN, Ur Squamous Epith Cells 0-5 SEEN, Urine Bacteria RARE, Urine Mucus 0 SEEN Micro: Microbiology 01/10/22 20:00 Stool Stool Lactoferrin - Final 01/10/22 20:00 Stool Enteric Bacteriology - Final Norovirus 01/10/22 20:00 Stool C. difficile DNA Amplification - Final 01/11/22 10:05 Urine, Random Legionella Antigen - Final 01/11/22 10:05 Urine, Random Streptococcus pneumoniae Antigen (M - Final 01/10/22 15:20 Nasal Secretion SARS-CoV-2 Antigen (Rapid) - Final
[2022-01-11] MEDS: Tamsulosin HCl 0.4 MG Capsule PO (17:12)
[2022-01-11] MEDS: Lactulose 20 GM/30 ML UDC 6.666 GM PO (20:59)
[2022-01-12] VITALS (8 sets, daily range): BP systolic 121–134; BP diastolic 43–55; PULSE 70–74; RESP 18; TEMP 36.3–36.4; O2SAT 83–100
[2022-01-12] MEDS: Levothyroxine 75 MCG Tablet PO (05:17)
[2022-01-12] MEDS: Menthol/Lanolin/Calamine/Znox 113 GM Tube 1 APPLIC TOPICAL (05:17)
[2022-01-12 05:48] LABS: Absolute Neutrophil Count 3.5 X10^3/uL (2.0-7.7); Basophil# 0.02 X10^3/uL; Basophil% 0.4 % (0-1); Eosinophil# 0.22 X10^3/uL; Hematocrit 37.4 % (40-54); Hemoglobin 12.2 g/dL (13.0-16.5); Lymphocyte % 20.1 % (19-41); Mean Corp Hgb Conc 32.6 g/dL (32-36); Mean Corpuscular Hgb 32.4 pg (27.0-32.0); Mean Corpuscular Volume 99.5 fL (80-94); Mean Platelet Vol. 11.8 fl (6.2-12.0); Monocyte# 0.65 X10^3/uL; Monocyte% 11.9 % (0-10); NRBC Flagged by Analyzer 0 % (0-5); Neutrophil # 3.47 X10^3/uL (2.7-7.7); Neutrophil % 63.4 % (47-70); POSITIVE COUNT YES; POSITIVE MORPHOLOGY YES; Platelet Count 87 K/mm3 (150-450); RBC Distribution Width CV 20.3 % (11.6-14.6); RBC Distribution Width SD 74.4 fl (35.1-43.9); Red Blood Count 3.76 M/mm3 (4.6-6.2); White Blood Count 5.5 K/mm3 (4.4-11.0)
[2022-01-12 05:51] LABS: Differential Indicated SCAN CRITERIA MET
[2022-01-12 06:00] LABS: International Normalized Ratio 2.9; Prothrombin Time (Protime)PT. 29.2 SECONDS (11.7-14.9)
[2022-01-12 06:08] LABS: Anisocytosis 2+; Platelet Estimate MOD DEC (ADEQ)
[2022-01-12 06:24] LABS: ALB/GLOB Ratio 0.7 RATIO (0.9-2.4); AST(SGOT) 46 U/L (15-37); Alanine Aminotransfer ALT/SGPT 29 U/L (16-61); Albumin, Serum 2.7 g/dL (3.2-5.0); Alkaline Phosphatase 239 U/L (45-117); Anion Gap 7 (5-15); BUN 35 mg/dL (7-18); Calcium,Total 8.8 mg/dL (8.5-10.1); Chloride 109 mmol/L (98-107); EST Glomerular Filtration Rate 27 mL/min (>60); Est Glom Filt Rate - Afr Amer 33 mL/min (>60); Estimated Creatinine Clearance 27.35 ml/min; Globulin 3.7 g/dL (2.2-4.2); Glucose 98 mg/dL (74-106); Potassium 3.5 mmol/L (3.5-5.1); Protein, Total 6.4 g/dL (6.4-8.2); Sodium Level 143 mmol/L (136-145)
--- NOTE | 2022-01-12 07:37 | CASEMGMT ---
GIO HEARN received message from Jordi at [facility]. Patient has been accepted and moving to scheduling. CM will continue to follow this patient and plan for a safe discharge.
--- NOTE | 2022-01-12 07:54 | PCM.PN.HOSP ---
Subjective Subjective Follow-up for sepsis, norovirus, ESRD on hemodialysis and multiple other comorbidities Afebrile. Heart rate and blood pressure in normal range. On 3 L of oxygen. Objective Data Objective Data Vital Signs: Vital Signs Temp Pulse Resp BP Pulse Ox 97.3 F L 74 18 121/43 H 96 01/12/22 03:20 01/12/22 07:00 01/12/22 03:20 01/12/22 03:20 01/12/22 03:20 Oxygen Flow Rate (L/min) 3 Oxygen Delivery Method Nasal Cannula Weight: 161 lb 9.581 oz Body Mass Index (BMI) 23.0 Intake & Output: Intake and Output for Last 24 Hours 01/10/22 01/11/22 01/12/22 23:59 23:59 23:59 Intake Total 800 / 800 2306.08 / 2506.08 430 / 430 Output Total 0 / 0 200 / 500 300 / 300 Balance 800 / 800 2106.08 / 2006.08 130 / 130 Medical Nutrition Assessment Dietitian: Malnutrition Criteria Met Start: 01/11/22 11:13 Freq: Status: Active Protocol: Document 01/11/22 11:13 AG (Rec: 01/11/22 11:40 AG [id number]) Nutrition Malnutrition Evidence of Malnutrition Exists Yes Malnutrition (severe): Chronic Evidenced By Suboptimal Energy Intake ( Severe),Weight Loss (Severe), Physical Changes (Severe) Clinical Problem Chronic Disease or Condition Related Malnutrition Etiology severe, chronic malnutrition r /t inadequate energy intake w/ increased energy needs d/t diaylsis Signs/Symptoms as evidenced by unintentional wt loss of 27.6#/14.7% x 4 months, estimated PO intake meeting <75% of estimated energy needs >3 months; obvious severe muscle wasting/ fat loss upon physical exam in orbital, temporal, acromion, and clavicle regions. Status Active Problem Recommendation Dietitian Recommendations/Changes sodium restricted diet; ensure clear w/ breakfast and dinner and magic cup w/ lunch Lab / Micro Data Result Diagrams: 01/12/22 04:38 01/12/22 04:38 Labs: Laboratory Results - last 24 hr 01/11/22 09:20: B-Natriuretic Peptide 1573.3 H 01/11/22 09:20: Procalcitonin 0.83 H 01/11/22 09:20: TSH 1.42 01/11/22 09:20: PT 28.7 H, INR 2.8 01/11/22 10:05: Urine Color Jaelyn, Urine Clarity Clear, Urine pH 5.0, Ur Specific [place] 1.025, Urine Protein 30 H, Urine Glucose (UA) Normal, Urine Ketones Negative, Urine Occult Blood 25 H, Urine Nitrite Negative, Urine Bilirubin 1 H, Urine Urobilinogen Normal, Ur Leukocyte Esterase 25 H, Urine RBC 0-5 SEEN, Urine WBC 0-5 SEEN, Ur Squamous Epith Cells 0-5 SEEN, Urine Bacteria RARE, Urine Mucus 0 SEEN 01/12/22 04:38: WBC 5.5, RBC 3.76 L, Hgb 12.2 L, Hct 37.4 L, MCV 99.5 H, MCH 32.4 H, MCHC 32.6, RDW Std Deviation 74.4 H, RDW Coeff of Jennifer 20.3 H, Plt Count 87 L, MPV 11.8, Immature Gran % (Auto) 0.200, Neut % (Auto) 63.4, Lymph % (Auto) 20.1, [place] % (Auto) 11.9 H, Eos % (Auto) 4.0, Baso % (Auto) 0.4, Absolute Neuts (auto) 3.5, Absolute Lymphs (auto) 1.10, Nucleated RBC % 0, Platelet Estimate MOD DEC, Anisocytosis 2+ 01/12/22 04:38: PT 29.2 H, INR 2.9 01/12/22 04:38: Sodium 143, Potassium 3.5, Chloride 109 H, Carbon Dioxide 27.0, Anion Gap 7, BUN 35 H, Creatinine 2.50 H, Estim Creat Clear Calc 27.35, Est GFR (MDRD) Af Amer 33 L, Est GFR (MDRD) Non-Af 27 L, BUN/Creatinine Ratio 14.0, Glucose 98, Calcium 8.8, Total Bilirubin 2.10 H, AST 46 H, ALT 29, Alkaline Phosphatase 239 H, Total Protein 6.4, Albumin 2.7 L, Globulin 3.7, Albumin/Globulin Ratio 0.7 L Micro: Microbiology 01/10/22 14:10 Blood Culture (Wb) - Left Wrist Blood Culture - Preliminary No growth in 48 hours. 01/10/22 14:05 Blood Culture (Wb) - Right Wrist Blood Culture - Preliminary No growth in 48 hours. 01/10/22 20:00 Stool Stool Lactoferrin - Final 01/10/22 20:00 Stool Enteric Bacteriology - Final Norovirus 01/10/22 20:00 Stool C. difficile DNA Amplification - Final 01/11/22 10:05 Urine, Random Legionella Antigen - Final 01/11/22 10:05 Urine, Random Streptococcus pneumoniae Antigen (M - Final 01/10/22 15:20 Nasal Secretion SARS-CoV-2 Antigen (Rapid) - Final Physical Exam Narrative Seen and examined. 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 H/o DVT In remote past. General: Alert, Oriented x3, Cooperative HEENT: Atraumatic, PERRLA, EOMI, Normocephalic Oral: No Gingival or Mucosal Lesions/ Ulcerations Neck: Supple, No JVD, Negative Carotid Bruits Lungs: Pacemaker in the right subclavicular region. Air entry diminished in bilateral lung bases. No crepitation/rhonchi Cardiovascular: paced rhythm, Normal S1, Normal S2, S/P AVR. valve adventious sound/murmur Abdomen: Scar in mid abdomen s/p rectal shealth hematoma revoval Bowel Sounds Present, Soft, Non Tender, Non-Distended : No renal angle tenderness. No suprapubic tenderness. Extremities: No edema, Capillary Refill Less than 3 Seconds Skin: No rashes, No breakdown Musculoskeletal: No Tenderness to Palpation of Joints or Extremities Neurological: Cranial nerves II-XII grossly intact, DTR 2+/4, power 4/5 at major joints Psych/Mental Status: Normal Affect, Appropriate. Assessment & Plan Assessment/Plan (1) Sepsis: QUALIFIERS: Sepsis acute organ dysfunction status: unspecified Sepsis type: sepsis due to unspecified organism Qualified Code(s): A41.9 - Sepsis, unspecified organism (2) Acute respiratory failure with hypoxia: (3) Pneumonia: QUALIFIERS: Laterality: bilateral Lung location: unspecified part of lung Pneumonia type: due to unspecified organism Qualified Code(s): J18.9 - Pneumonia, unspecified organism (4) Acute encephalopathy: PLAN: The patient is a 71 y/o M is admitted in ICU through ED for respiratory failure pneumonia and sepsis. The patient was brought by EMS for fever with decreased responsiveness during the dialysis session, diaphoretic, abdominal cramps with, nausea, vomiting episodes of diarrhea. #1. Acute Encephalopathy, multifactorial probably due to sepsis along with with history of recent Marika fungemia, metabolic, hepatic encephalopathy with history of cirrhosis, ESRD on dialysis and other multiple comorbidities and polypharmacy: The patient is being comanaged with cardiovascular surgical tech. Patient is awake and alert. Responding questions appropriately. Acute encephalopathy much improved. Patient allowed oral diet after nursing screening. Home medication reconciliation done. #2. Sepsis due to Bilateral lower lobe pneumonia with suspicion of bacterial superinfection and recent Marika fungemia: Blood cultures x2 have been sent. qSOFA score is 2/3 with altered mental status and tachypnea On fluconazole IV. Patient on vancomycin and Zosyn. Consult ID. Chest x-ray individually reviewed showed left basilar infiltrate with a small effusion in the right increase in infiltrate Patient denies nasal pain/fullness. Denies headache. Has mild chronic sinus congestion. Patient had recent outside [facility] evaluation, 2 out of 2 blood cultures on 08/10/2021 showed no growth at that time. Unclear source but had incidence of previous fungemia in nasal cavity through 1 year as per previous ENT notes. 01/12: ID consult reviewed. Vancomycin discontinued. Patient remains febrile will discontinue Zosyn too. #3. Possible acute gastroenterocolitis due to norovirus with history of decompensated cirrhosis: Patient takes lactulose to goal of 3 bowel movements per day. Stool for c-diff, stool culture, ova impressed have been ordered along with supportive regimen for symptomatic management. Unclear if it is because of lactulose. Enteric bacteriology panel positive for norovirus 01/12: Patient afebrile. #4. Recent TIEN on CKD stage IV secondary to ATN likely secondary to long-term Diflucan and doxycycline requiring HD w/ tunneled dialysis catheter: Admission BUN/Cr 25/1.83, baseline renal function previously noted 2.53. Photograph Developer Dr. Calderon is consulted. #5. Decompensated cirrhosis with history of hepatic encephalopathy, thrombocytopenia possibly due to [place] cirrhosis for cardiac cirrhosis: Patient on lactulose and Xifaxan as an outpatient. Continued #6. Seizure disorder: Patient with recent evaluation at [facility] with concern for seizure with no marked evidence noted on EEG per report however given concern patient was continued on empiric Keppra with encourage continued outpatient follow-up with neurology. On IV Keppra. #7. Valvular heart disease with history of prior endocarditis: Hx MVR and status post mechanical aortic valve secondary to history of previous rheumatic heart disease, goal INR 2.5-3.5, TTE at [facility] 10/2021 without any evidence of any vegetations at that time with noted EF 50-55%, well-seated mechanical aortic valve, mean aortic valve gradient of 11 mmHg and mild to moderate perivalvular and valvular regurgitation, mean mitral valve gradient 6 mmHg and mild mitral valve rotation, RVSP 53 mmHg similar to 05/2021 ECHO. 01/11: Plan Home dose of warfarin resumed. INR 2.2 on 01/10. Repeat INR ordered. #8. Chronic thrombocytopenia: Admission platelets 98, baseline about 70,000. Her baseline. Monitor CBC daily #9. Chronic normocytic anemia/anemia of chronic kidney disease chronic diagnosis anemia mixed: A hemoglobin 11.8. On baseline. Admission hemoglobin 14.5 g may be hemoconcentrated. Next #10. Hypothyroidism: patient levothyroxine regimen. Resumed. 11: History of DVT in lower leg and upper extremity. VTE study of left lower extremity was negative. #12. Hypertension: Blood pressure regimen carvedilol resumed. Normotensive. #13. History of VTE: Patient with prior history of DVT and upper extremity clots, patient did report subtherapeutic INR's at [facility], left lower extremity with increased edema, to be cautious despite therapeutic Coumadin will obtain duplex ultrasound in case this occurred during that timeline and he has chronic swelling associated. #14. 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 #15. CODE status: Patient BRENT is his . As per admitting hospitalist, full code. Total time of the visit including total time spent in counseling or coordination of care, (more than 50% of the total time, spent in obtaining medical information from nurses and other ancillary care providers,explaining to the patient about labs, imaging, diagnosis and management), discussion with case consultant, review of labs and imaging is 40 minutes. Clinical Impression(s) from Imaging Studies Abdomen/Pelvis CT 01/10/22 13:15 IMPRESSION: Bilateral pleural effusions with bibasilar atelectasis and/or infiltrates worse on the left side. Ascites. Status post cholecystectomy. Prostatic enlargement. Diffuse bladder wall thickening. Stable bilateral renal cysts. Chest X-Ray 01/10/22 14:00 IMPRESSION: Small left pleural effusion with left basilar infiltrate. Increased markings at the right lung base. Mild degree of CHF. Venous Doppler Study 01/10/22 14:25 Interpretation Summary There is no evidence of left lower extremity deep vein thrombosis. Left great saphenous vein appears patent and compressible segmentally. COVID-19 protocol utilized
--- NOTE | 2022-01-12 08:23 | PCM.PN.INT ---
Assessment & Plan Assessment/Plan (1) Norovirus: PLAN: RECOMMENDATIONS: 1. Agree with antimicrobial discontinuation. 2. Nephrology following to assist with hemodialysis needs. 3. Continue as needed antiemetics. 4. Continue Coumadin and check INR daily. 5. Wean supplemental oxygen to maintain saturations at or above 90%. 6. Encourage incentive spirometer use and mobilize patient as tolerated. IMPRESSIONS: 1. Viral gastroenteritis The patient initially presented with signs/symptoms and laboratory derangements concerning for sepsis. However, subsequent work-up revealed that the etiology for the patient's acute presentation was more likely to be uncomplicated viral gastroenteritis. The patient's labile blood pressures are likely secondary to intravascular volume depletion and his hyperbilirubinemia and thrombocytopenia are both chronic medical conditions related to his underlying liver disease. Therefore, sepsis has been ruled out from my perspective. Antibiotics have been discontinued. Continue supportive measures for now. The chest imaging findings are more likely secondary to bilateral pleural effusions, especially in light of an elevated BNP of 1500, as opposed to an occult pulmonary infectious etiology. 2. History of heart failure with preserved ejection fraction/pulmonary hypertension The patient does have evidence of pleural effusions and an elevated BNP. Anticipate improvement with volume optimization through hemodialysis. Wean supplemental oxygen for now for saturations greater than 90%. 3. Encephalopathy The patient has a complex medical history and has had extensive work-up over concerns for syncopal events since 2019. He was just recently seen by neurology. In the past, there has been some concern of a potential epileptic events versus vasovagal/vasodepressor etiology. At the present time, however, the patient's mentation appears to be improved, likely suggesting a metabolic etiology. 4. End-stage renal disease on hemodialysis Nephrology has been consulted to assist with hemodialysis needs. 5. Liver cirrhosis with hyperammonemia Unclear etiology, but potentially related to [place] cirrhosis. The patient was previously on lactulose, which is on hold due to increased frequency of bowel movements. 6. Questionable seizure disorder Continue outpatient antiepileptic regimen and follow-up with neurology on outpatient basis. 7. History of VTE Continue Coumadin and monitor INR daily. 8. Valvular heart disease/thrombocytopenia/hypothyroidism/paroxysmal atrial fibrillation/flutter Complicates care, management, recovery and prognosis. Continue home medications as indicated. This note was generated with [employer] software. It may contain incorrect words, spelling, and punctuation that were not noted in checking the note before signing. Subjective Subjective The patient was seen and examined at the bedside this morning. Events from the last 24 hours have been reviewed. The patient is currently afebrile, hemodynamically stable and maintaining appropriate oxygen saturations on 3 L/min via nasal cannula. The patient is currently documented to be overall net +3 L for the hospitalization. He remains on antimicrobials. The patient's diet was advanced yesterday following evaluation by speech therapy. INR this morning was noted to be 2.9. Total bili is elevated at 2.1. Objective Data Objective Data The patient's most recent lab work, culture data and imaging studies have all been personally reviewed. Enteric panel was positive for norovirus. Vital Signs: Vital Signs Temp Pulse Resp BP Pulse Ox 97.3 F L 74 18 121/43 H 96 01/12/22 03:20 01/12/22 07:00 01/12/22 03:20 01/12/22 03:20 01/12/22 03:20 Oxygen Flow Rate (L/min) 3 Oxygen Delivery Method Nasal Cannula Weight: 73.3 kg Body Mass Index (BMI) 23.0 Intake & Output: Intake and Output for Last 24 Hours 01/10/22 01/11/22 01/12/22 23:59 23:59 23:59 Intake Total 800 / 800 2306.08 / 2506.08 430 / 430 Output Total 0 / 0 200 / 500 300 / 300 Balance 800 / 800 2106.08 / 2006.08 130 / 130 Medical Nutrition Assessment Dietitian: Malnutrition Criteria Met Start: 01/11/22 11:13 Freq: Status: Active Protocol: Document 01/11/22 11:13 (Rec: 01/11/22 11:40 [id number]) Nutrition Malnutrition Evidence of Malnutrition Exists Yes Malnutrition (severe): Chronic Evidenced By Suboptimal Energy Intake ( Severe),Weight Loss (Severe), Physical Changes (Severe) Clinical Problem Chronic Disease or Condition Related Malnutrition Etiology severe, chronic malnutrition r /t inadequate energy intake w/ increased energy needs d/t diaylsis Signs/Symptoms as evidenced by unintentional wt loss of 27.6#/14.7% x 4 months, estimated PO intake meeting <75% of estimated energy needs >3 months; obvious severe muscle wasting/ fat loss upon physical exam in orbital, temporal, acromion, and clavicle regions. Status Active Problem Recommendation Dietitian Recommendations/Changes sodium restricted diet; ensure clear w/ breakfast and dinner and magic cup w/ lunch Lab / Micro Data Attestation: I reviewed the patient's lab results. Result Diagrams: 01/12/22 04:38 01/12/22 04:38 Labs: Laboratory Results - last 24 hr 01/11/22 09:20: B-Natriuretic Peptide 1573.3 H 01/11/22 09:20: Procalcitonin 0.83 H 01/11/22 09:20: TSH 1.42 01/11/22 09:20: PT 28.7 H, INR 2.8 01/11/22 10:05: Urine Color Jaelyn, Urine Clarity Clear, Urine pH 5.0, Ur Specific [place] 1.025, Urine Protein 30 H, Urine Glucose (UA) Normal, Urine Ketones Negative, Urine Occult Blood 25 H, Urine Nitrite Negative, Urine Bilirubin 1 H, Urine Urobilinogen Normal, Ur Leukocyte Esterase 25 H, Urine RBC 0-5 SEEN, Urine WBC 0-5 SEEN, Ur Squamous Epith Cells 0-5 SEEN, Urine Bacteria RARE, Urine Mucus 0 SEEN 01/12/22 04:38: WBC 5.5, RBC 3.76 L, Hgb 12.2 L, Hct 37.4 L, MCV 99.5 H, MCH 32.4 H, MCHC 32.6, RDW Std Deviation 74.4 H, RDW Coeff of Jennifer 20.3 H, Plt Count 87 L, MPV 11.8, Immature Gran % (Auto) 0.200, Neut % (Auto) 63.4, Lymph % (Auto) 20.1, [place] % (Auto) 11.9 H, Eos % (Auto) 4.0, Baso % (Auto) 0.4, Absolute Neuts (auto) 3.5, Absolute Lymphs (auto) 1.10, Nucleated RBC % 0, Platelet Estimate MOD DEC, Anisocytosis 2+ 01/12/22 04:38: PT 29.2 H, INR 2.9 01/12/22 04:38: Sodium 143, Potassium 3.5, Chloride 109 H, Carbon Dioxide 27.0, Anion Gap 7, BUN 35 H, Creatinine 2.50 H, Estim Creat Clear Calc 27.35, Est GFR (MDRD) Af Amer 33 L, Est GFR (MDRD) Non-Af 27 L, BUN/Creatinine Ratio 14.0, Glucose 98, Calcium 8.8, Total Bilirubin 2.10 H, AST 46 H, ALT 29, Alkaline Phosphatase 239 H, Total Protein 6.4, Albumin 2.7 L, Globulin 3.7, Albumin/Globulin Ratio 0.7 L Micro: Microbiology 01/10/22 14:10 Blood Culture (Wb) - Left Wrist Blood Culture - Preliminary No growth in 48 hours. 01/10/22 14:05 Blood Culture (Wb) - Right Wrist Blood Culture - Preliminary No growth in 48 hours. 01/10/22 20:00 Stool Stool Lactoferrin - Final 01/10/22 20:00 Stool Enteric Bacteriology - Final Norovirus 01/10/22 20:00 Stool C. difficile DNA Amplification - Final 01/11/22 10:05 Urine, Random Legionella Antigen - Final 01/11/22 10:05 Urine, Random Streptococcus pneumoniae Antigen (M - Final 01/10/22 15:20 Nasal Secretion SARS-CoV-2 Antigen (Rapid) - Final Physical Exam Const alert and no apparent distress Constitutional Narrative: Resting comfortably in bed. General Appearance: cooperative HEENT normocephalic and head/scalp atraumatic Eyes PERRL and conjunctivae normal Neck supple General: trachea midline Chest inspection of chest normal Resp Auscultation: diminished lung sounds; Negative for rales, rhonchi or wheezes Cardio regular rate and regular rhythm Heart Sounds: murmur GI normal to inspection, nondistended, normoactive bowel sounds Extremity General Extremity: edema; Negative for clubbing Skin no rashes or lesions noted Neuro CN's II-XII intact bilaterally and no focal motor deficits Psych Mood & Affect: flat affect Charges/Coding Visit Charges Inpatient E&M: 49849 Subs Hosp L2
[2022-01-12] MEDS: Lactulose 20 GM/30 ML UDC 6.666 GM PO (09:08)
[2022-01-12] MEDS: Isosorbide Mononitrate 30 MG Tablet PO (09:09)
[2022-01-12] MEDS: Pantoprazole Sodium 40 MG Tablet PO (09:09)
[2022-01-12] MEDS: Carvedilol 3.125 MG TABLET PO (09:09)
[2022-01-12] MEDS: Folic Acid/Vitamin B Comp W-C 1 Capsule 1 CAP PO (09:09)
[2022-01-12] MEDS: rifAXIMin 550 MG Tablet PO (09:09)
--- NOTE | 2022-01-12 09:53 | PN.ID_ITS ---
Physical Exam Narrative Feeling better, no fever, out of icu, still some diarrhea. Const alert General Appearance: cooperative Resp normal air movement and clear to auscultation bilaterally Cardio regular rate and regular rhythm GI soft to palpation, non-tender and non-distended Skin no rashes or lesions noted ID ID: Route of nutrition/ use of supplements: [] Nutritional Intake: [] IV Site: [] Sheikh Catheter: [] Assessment & Plan Assessment/Plan (1) Norovirus: PLAN: Norovirus (+). Likely explanation for his acute illness and improving symptoms. Cxs neg so far. Will stop zosyn. Will follow as needed, please call with any new issues. Pt is covid vaccinated x3. On senior living doxy and fluc. (2) CKD stage G5/A1, GFR <15 and albumin creatinine ratio <30 mg/g: (3) Acute encephalopathy:
--- NOTE | 2022-01-12 10:26 | DCINST_ITS ---
Discharge Instructions Follow Up Care Test Results: Test results from this visit will be discussed in further detail at your follow-up appointment, if applicable. Discharge Plan Admission Admit Date/Time: 01/10/22 14:15 Primary Reason for Your Visit: Viral gastroenteritis. Acute encephalopathy Attending Provider: Siddharth Chowdhury Primary Care Provider: Vinny Atkinson Consulting Providers: Ford March ; Jd Weeks ; Sharron Calderon Discharge Orders/Prescriptions Prescriptions: New furosemide 40 mg Tablet 40 mg PO DAILY Qty: 30 RF: 0 Continued alprazolam 1 mg tablet 0.5 mg PO DAILY PRN (Reason: Sleep) RF: 0 levetiracetam 500 mg tablet 500 mg PO BID Qty: 60 RF: 2 levocarnitine 330 mg tablet 330 mg PO BID Qty: 60 RF: 2 pantoprazole 40 mg tablet,delayed release (DR/EC) 40 tablet PO DAILY RF: 0 fluconazole 200 mg tablet 200 mg PO DAILY RF: 0 ondansetron HCl 4 mg tablet 4 mg PO Q6H PRN (Reason: Nausea) RF: 0 warfarin 5 mg tablet 2 mg PO SUTHFRSA RF: 0 warfarin 1 mg tablet 4 mg PO MOTUWE RF: 0 tamsulosin 0.4 mg capsule 0.4 mg PO DINNER RF: 0 levothyroxine 75 mcg tablet 75 mcg PO DAILY RF: 0 Nephro-Baltazar 0.8 mg tablet 1 tab PO DAILY RF: 0 ferrous sulfate 325 mg (65 mg iron) Tablet 325 mg PO DAILY RF: 0 rifaximin 550 mg Tablet 550 mg PO BID RF: 0 isosorbide mononitrate 30 mg tablet extended release 24 hr 30 mg PO DAILY Qty: 90 RF: 3 carvedilol 6.25 mg tablet 6.25 mg PO BID Qty: 180 RF: 3 Discontinued doxycycline hyclate 100 MG capsule 100 mg PO BID RF: 0 lactulose 10 gram/15 mL solution 10 ml PO BID RF: 0 Referrals / Follow Up: Sharron Calderon DO [STAFF PHYSICIAN] - Within 2 Weeks (For ESRD on hemodialysis) Jd Weeks DO [STAFF PHYSICIAN] - Within 2 Weeks (In pulmonary clinic for history of obstructive sleep apnea.) Vinny Atkinson MD [Primary Care Provider] - Within 1 Week Jane Torres PA [PHYSICIAN SMELTER OPERATOR] - Within 1 Month (FOR VALVULAR HEART DISEASE) Disposition Disposition (needs filled in before D/C Order can be placed): Home Health Service
--- NOTE | 2022-01-12 12:23 | PCM.PN.REN ---
Subjective Subjective complains of diarrhea, stop lactulose since he is on xifaxan. Fatigue today due to insomnia last night. Oxygenation stable but dyspneic at times. Will have him take lasix 40mg daily Objective Data Objective Data Vital Signs: Vital Signs Temp Pulse Resp BP Pulse Ox 97.6 F L 72 18 134/55 H 100 01/12/22 09:05 01/12/22 09:05 01/12/22 09:05 01/12/22 09:05 01/12/22 09:05 Oxygen Flow Rate (L/min) 2 Oxygen Delivery Method Nasal Cannula Weight: 73.3 kg Body Mass Index (BMI) 23.0 Intake & Output: Intake and Output for Last 24 Hours 01/10/22 01/11/22 01/12/22 23:59 23:59 23:59 Intake Total 800 / 800 2306.08 / 2506.08 585 / 585 Output Total 0 / 0 200 / 500 300 / 300 Balance 800 / 800 2106.08 / 2006.08 285 / 285 Medical Nutrition Assessment Dietitian: Malnutrition Criteria Met Start: 01/11/22 11:13 Freq: Status: Active Protocol: Document 01/11/22 11:13 AG (Rec: 01/11/22 11:40 AG [id number]) Nutrition Malnutrition Evidence of Malnutrition Exists Yes Malnutrition (severe): Chronic Evidenced By Suboptimal Energy Intake ( Severe),Weight Loss (Severe), Physical Changes (Severe) Clinical Problem Chronic Disease or Condition Related Malnutrition Etiology severe, chronic malnutrition r /t inadequate energy intake w/ increased energy needs d/t diaylsis Signs/Symptoms as evidenced by unintentional wt loss of 27.6#/14.7% x 4 months, estimated PO intake meeting <75% of estimated energy needs >3 months; obvious severe muscle wasting/ fat loss upon physical exam in orbital, temporal, acromion, and clavicle regions. Status Active Problem Recommendation Dietitian Recommendations/Changes sodium restricted diet; ensure clear w/ breakfast and dinner and magic cup w/ lunch Lab / Micro Data Result Diagrams: 01/12/22 04:38 01/12/22 04:38 Labs: Laboratory Results - last 24 hr 01/12/22 04:38: WBC 5.5, RBC 3.76 L, Hgb 12.2 L, Hct 37.4 L, MCV 99.5 H, MCH 32.4 H, MCHC 32.6, RDW Std Deviation 74.4 H, RDW Coeff of Jennifer 20.3 H, Plt Count 87 L, MPV 11.8, Immature Gran % (Auto) 0.200, Neut % (Auto) 63.4, Lymph % (Auto) 20.1, [place] % (Auto) 11.9 H, Eos % (Auto) 4.0, Baso % (Auto) 0.4, Absolute Neuts (auto) 3.5, Absolute Lymphs (auto) 1.10, Nucleated RBC % 0, Platelet Estimate MOD DEC, Anisocytosis 2+ 01/12/22 04:38: PT 29.2 H, INR 2.9 01/12/22 04:38: Sodium 143, Potassium 3.5, Chloride 109 H, Carbon Dioxide 27.0, Anion Gap 7, BUN 35 H, Creatinine 2.50 H, Estim Creat Clear Calc 27.35, Est GFR (MDRD) Af Amer 33 L, Est GFR (MDRD) Non-Af 27 L, BUN/Creatinine Ratio 14.0, Glucose 98, Calcium 8.8, Total Bilirubin 2.10 H, AST 46 H, ALT 29, Alkaline Phosphatase 239 H, Total Protein 6.4, Albumin 2.7 L, Globulin 3.7, Albumin/Globulin Ratio 0.7 L Micro: Microbiology 01/10/22 14:10 Blood Culture (Wb) - Left Wrist Blood Culture - Preliminary No growth in 48 hours. 01/10/22 14:05 Blood Culture (Wb) - Right Wrist Blood Culture - Preliminary No growth in 48 hours. 01/10/22 20:00 Stool Stool Lactoferrin - Final 01/10/22 20:00 Stool Enteric Bacteriology - Final Norovirus 01/10/22 20:00 Stool C. difficile DNA Amplification - Final 01/11/22 10:05 Urine, Random Legionella Antigen - Final 01/11/22 10:05 Urine, Random Streptococcus pneumoniae Antigen (M - Final 01/10/22 15:20 Nasal Secretion SARS-CoV-2 Antigen (Rapid) - Final Physical Exam Const Constitutional Narrative: somnolent, but arrousable General Appearance: cooperative and comfortable Resp clear to auscultation bilaterally Cardio regular rate Cardio Narrative: paced GI non-tender and non-distended Auscultation: normoactive bowel sounds Palpation: soft Extremity Extremity Narrative: mild leg edema Assessment & Plan Assessment/Plan (1) CKD stage G5/A1, GFR <15 and albumin creatinine ratio <30 mg/g: PLAN: HD qTues. Last dialysis yesterday. Will change to twice a week, next dialysis Sat for fluid management, oliguric. Add lasix 40mg daily for complaints of SOB. Ok from renal standpoint to dc to home. Currently TIEN on CKD stage 5 but likely going to be end stage, no recovery. Discussed with hospitalist, pt spouse at bedside. (2) Sepsis: PLAN: no growth so far, renal dose antibiotics (3) Acute encephalopathy: PLAN: improved today (4) Hyperammonemia: PLAN: continue xifaxan, stop lactulose (5) History of heart valve replacement with mechanical valve: PLAN: on anticoagulation (6) Norovirus:
--- NOTE | 2022-01-12 12:35 | DS.PCM_ITS ---
Providers Date of Admission: 01/10/22 Date of Discharge: 01/12/22 Primary Care Physician: Dr. Vinny Atkinson MD Consultations 01/10/22 19:41 Consult: Infectious Disease Routine Consulting Provider: Ford March Reason for Consult: Sepsis, complicated recent [facility] hosp , fungemia, present PNA EMERGENT Consult: No MD Notified: Yes Date Notified: 01/10/22 Time Notified: 14:20 Method of Notification: Text Consult: Soil Conservation Technician / Pulmonary Medicine Routine Consulting Provider: Jd Weeks Reason for Consult: Resp failure, PNA, Sepsis EMERGENT Consult: No Notified: Yes Date Notified: 01/10/22 Time Notified: 14:19 Method of Notification: cortext Consult: Nephrology Routine Consulting Provider: Sharron Calderon Reason for Consult: ESRD on HD, admit sepsis, resp failure, PNA EMERGENT Consult: No MD Notified: Yes Date Notified: 01/10/22 Time Notified: 14:17 Method of Notification: Text Reason For Visit: SEPSIS,ACUTE HYPOXIC RESP FAILURE,ENCEPHALOPATHY Diagnosis Discharge Diagnosis (1) CKD stage G5/A1, GFR <15 and albumin creatinine ratio <30 mg/g: Status: Acute Code(s): N18.5 - 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, stage 5 (2) Sepsis: Status: Deleted Code(s): A41.9 - Sepsis, unspecified organism (3) Acute encephalopathy: Status: Acute Code(s): G93.40 - Encephalopathy, unspecified (4) Hyperammonemia: Status: Chronic Code(s): E72.20 - Disorder of urea cycle metabolism, unspecified (5) History of heart valve replacement with mechanical valve: Status: Chronic Code(s): Z95.2 - Presence of prosthetic heart valve (6) Norovirus: Status: Acute Code(s): A08.11 - Acute gastroenteropathy due to [place] agent Medications at Discharge Home Medications isosorbide mononitrate 30 mg tablet,extended release 24 hr 30 mg PO DAILY #90 tab 04/25/21 tamsulosin 0.4 mg PO DINNER 05/19/21 pantoprazole 40 mg tablet,delayed release 40 tablet PO DAILY 08/02/21 levothyroxine 75 mcg PO DAILY 08/24/21 fluconazole 200 mg tablet 200 mg PO DAILY tab 12/13/21 ondansetron HCl 4 mg tablet 4 mg PO Q6H PRN 10/31/21 warfarin 1 mg tablet 4 mg PO MOTUWE tab 10/31/21 warfarin 5 mg tablet 2 mg PO SUTHFRSA tab 10/31/21 carvedilol 6.25 mg tablet 6.25 mg PO BID #180 tab 12/20/21 alprazolam 1 mg tablet 0.5 mg PO DAILY PRN tab 01/09/22 levetiracetam 500 mg tablet 500 mg PO BID #60 tab 01/09/22 levocarnitine 330 mg tablet 330 mg PO BID #60 tab 01/09/22 Nephro-Baltazar 1 tab PO DAILY 01/10/22 rifaximin 550 mg PO BID 01/10/22 doxycycline hyclate 100 mg PO BID #60 tab 01/12/22 ferrous sulfate 325 mg PO QODAY #0 tab 01/12/22 furosemide 40 mg PO DAILY #30 tab 01/12/22 Hospital Course Summary of Care Provided Hospital Course: The patient is a 71 y/o M is admitted in ICU through ED for respiratory failure pneumonia and sepsis. The patient was brought by EMS for fever with decreased responsiveness during the dialysis session, diaphoretic, abdominal cramps with, nausea, vomiting episodes of diarrhea. #1. Acute Encephalopathy, multifactorial probably due to sepsis along with with history of recent Marika fungemia, metabolic, hepatic encephalopathy with history of cirrhosis, ESRD on dialysis and other multiple comorbidities and polypharmacy: The patient is being comanaged with professor of special education. Patient is awake and alert. Responding questions appropriately. Acute encephalopathy much improved. Patient allowed oral diet after nursing screening. Home medication reconciliation done. 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 Blood cultures x2 have been sent. qSOFA score is 2/3 with altered mental status and tachypnea On fluconazole IV. Patient on vancomycin and Zosyn. Consult ID. Chest x-ray individually reviewed showed left basilar infiltrate with a small effusion in the right infiltrate. Patient denies nasal pain/fullness. Denies headache. Has mild chronic sinus congestion. Patient had recent outside [facility] evaluation, 2 out of 2 blood cultures on 08/10/2021 showed no growth at that time. Unclear source but had incidence of previous fungemia in nasal cavity through 1 year as per previous ENT notes. 01/12: ID consult reviewed. Vancomycin discontinued. Patient remains febrile and Zosyn discontinued. Blood cultures x2 - for 48 hours. Urinary antigens are negative. Discussed with ID said okay for discharge. Patient to continue lifelong fluconazole. Sepsis resolved. Pneumonia ruled out. #3. Sepsis due to acute gastroenterocolitis due to norovirus with history of decompensated cirrhosis: Patient takes lactulose to goal of 3 bowel movements per day. Stool for c-diff, stool culture, ova impressed have been ordered along with supportive regimen for symptomatic management. Unclear if it is because of lactulose. Enteric bacteriology panel positive for norovirus 01/12: Patient afebrile. Stool for C. difficile negative. Patient has a lot of diarrhea due to lactulose therefore discontinued. Advised patient and his to continue Xifaxan. #4. Recent TIEN on CKD stage IV secondary to ATN likely secondary to long-term Diflucan and doxycycline requiring HD w/ tunneled dialysis catheter: Admission BUN/Cr 25/1.83, baseline renal function previously noted 2.53. Industrial Gas Service Helper Dr. Calderon is consulted. #5. Decompensated cirrhosis with history of hepatic encephalopathy, thrombocytopenia possibly due to [place] cirrhosis for cardiac cirrhosis: Patient on lactulose and Xifaxan as an outpatient. Continued #6. Seizure disorder: Patient with recent evaluation at [facility] with concern for se izure with no marked evidence noted on EEG per report however given concern patient was continued on empiric Keppra with encourage continued outpatient follow-up with neurology. On IV Keppra. Change to oral Keppra. #7. Valvular heart disease with history of prior endocarditis: Hx MVR and status post mechanical aortic valve secondary to history of previous rheumatic heart disease, goal INR 2.5-3.5, TTE at [facility] 10/2021 without any evidence of any vegetations at that time with noted EF 50-55%, well-seated mechanical aortic valve, mean aortic valve gradient of 11 mmHg and mild to moderate perivalvular and valvular regurgitation, mean mitral valve gradient 6 mmHg and mild mitral valve rotation, RVSP 53 mmHg similar to 05/2021 ECHO. 01/11: Plan Home dose of warfarin resumed. INR 2.2 on 01/10. 01/12: INR 2.9. Home dose of warfarin continue #8. Chronic thrombocytopenia: Admission platelets 98, baseline about 70,000. Her baseline. Last platelet count 37,000. On baseline. #9. Chronic normocytic anemia/anemia of chronic kidney disease chronic diagnosis anemia mixed: A hemoglobin 11.8. On baseline. Admission hemoglobin 14.5 g may be hemoconcentrated. Next #10. Hypothyroidism: patient levothyroxine regimen. Resumed. 11: History of DVT in lower leg and upper extremity. VTE study of left lower extremity was negative. #12. Hypertension: Blood pressure regimen carvedilol resumed. Normotensive. #13. History of VTE: Patient with prior history of DVT and upper extremity clots, patient did report subtherapeutic INR's at [facility], left lower extremity with increased edema, to be cautious despite therapeutic Coumadin will obtain duplex ultrasound in case this occurred during that timeline and he has chronic swelling associated. #14. 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 traffic monitor specialist shows paced rhythm. #15. CODE status: Patient YUANOA is his . As per admitting hospitalist, full code. Discharge medication reconciliation done. Discharge follow-up instructions completed. Discharge process discussed with the patient and his present in the room and all questions were answered to patient and his satisfaction. Total time spent, exact 35 minutes on discharge meds reconciliation, examination, coordination of care with nurses and ancillary staff, discussion with consultants, review of imaging and blood test and discussion with the patient on follow-up instructions Clinical Impression(s) from Imaging Studies Abdomen/Pelvis CT 01/10/22 13:15 IMPRESSION: Bilateral pleural effusions with bibasilar atelectasis and/or infiltrates worse on the left side. Ascites. Status post cholecystectomy. Prostatic enlargement. Diffuse bladder wall thickening. Stable bilateral renal cysts. Chest X-Ray 01/10/22 14:00 IMPRESSION: Small left pleural effusion with left basilar infiltrate. Increased markings at the right lung base. Mild degree of CHF. Venous Doppler Study 01/10/22 14:25 Interpretation Summary There is no evidence of left lower extremity deep vein thrombosis. Left great saphenous vein appears patent and compressible segmentally. COVID-19 protocol utilized Physical Exam Narrative Seen and examined. Afebrile. Heart rate and blood pressure in normal range. On 2 L of oxygen. cardiac care nurse shows Pacemaker rhythm. General: Alert, Oriented x3, Cooperative HEENT: Atraumatic, PERRLA, EOMI, Normocephalic Oral: No Gingival or Mucosal Lesions/ Ulcerations Neck: Supple, No JVD, Negative Carotid Bruits Lungs: Pacemaker in the right subclavicular region. Air entry diminished in bilateral lung bases. No crepitation/rhonchi Cardiovascular: paced rhythm, Normal S1, Normal S2, S/P AVR. valve adventious sound/murmur Abdomen: Scar in mid abdomen s/p rectal shealth hematoma revoval Bowel Sounds Present, Soft, Non Tender, Non-Distended : On hemodialysis through right permacath. No renal angle tenderness. No suprapubic tenderness. Extremities: Pedal edema resolved. Capillary Refill Less than 3 Seconds Skin: No rashes, No breakdown Musculoskeletal: No Tenderness to Palpation of Joints or Extremities Neurological: Cranial nerves II-XII grossly intact, DTR 2+/4, power 4/5 at major joints Psych/Mental Status: Flat affect. Medical Records Data Medical Nutrition Assessment Dietitian: Malnutrition Criteria Met Start: 01/11/22 11:13 Freq: Status: Active Protocol: Document 01/11/22 11:13 (Rec: 01/11/22 11:40 [id number]) Nutrition Malnutrition Evidence of Malnutrition Exists Yes Malnutrition (severe): Chronic Evidenced By Suboptimal Energy Intake ( Severe),Weight Loss (Severe), Physical Changes (Severe) Clinical Problem Chronic Disease or Condition Related Malnutrition Etiology severe, chronic malnutrition r /t inadequate energy intake w/ increased energy needs d/t diaylsis Signs/Symptoms as evidenced by unintentional wt loss of 27.6#/14.7% x 4 months, estimated PO intake meeting <75% of estimated energy needs >3 months; obvious severe muscle wasting/ fat loss upon physical exam in orbital, temporal, acromion, and clavicle regions. Status Active Problem Recommendation Dietitian Recommendations/Changes sodium restricted diet; ensure clear w/ breakfast and dinner and magic cup w/ lunch Weight / BMI Weight Weight: 161 lb 9.581 oz Body Mass Index (BMI) 23.0 ABG / Lab / Microbiology Data Result Diagrams: 01/12/22 04:38 01/12/22 04:38 Laboratory: Laboratory Results - last 24 hr 01/12/22 04:38: WBC 5.5, RBC 3.76 L, Hgb 12.2 L, Hct 37.4 L, MCV 99.5 H, MCH 32.4 H, MCHC 32.6, RDW Std Deviation 74.4 H, RDW Coeff of Jennifer 20.3 H, Plt Count 87 L, MPV 11.8, Immature Gran % (Auto) 0.200, Neut % (Auto) 63.4, Lymph % (Auto) 20.1, [place] % (Auto) 11.9 H, Eos % (Auto) 4.0, Baso % (Auto) 0.4, Absolute Neuts (auto) 3.5, Absolute Lymphs (auto) 1.10, Nucleated RBC % 0, Platelet Estimate MOD DEC, Anisocytosis 2+ 01/12/22 04:38: PT 29.2 H, INR 2.9 01/12/22 04:38: Sodium 143, Potassium 3.5, Chloride 109 H, Carbon Dioxide 27.0, Anion Gap 7, BUN 35 H, Creatinine 2.50 H, Estim Creat Clear Calc 27.35, Est GFR (MDRD) Af Amer 33 L, Est GFR (MDRD) Non-Af 27 L, BUN/Creatinine Ratio 14.0, Glucose 98, Calcium 8.8, Total Bilirubin 2.10 H, AST 46 H, ALT 29, Alkaline Phosphatase 239 H, Total Protein 6.4, Albumin 2.7 L, Globulin 3.7, Albumin/Globulin Ratio 0.7 L Microbiology: Microbiology 01/10/22 14:10 Blood Culture (Wb) - Left Wrist Blood Culture - Preliminary No growth in 48 hours. 01/10/22 14:05 Blood Culture (Wb) - Right Wrist Blood Culture - Preliminary No growth in 48 hours. 01/10/22 20:00 Stool Stool Lactoferrin - Final 01/10/22 20:00 Stool Enteric Bacteriology - Final Norovirus 01/10/22 20:00 Stool C. difficile DNA Amplification - Final 01/11/22 10:05 Urine, Random Legionella Antigen - Final 01/11/22 10:05 Urine, Random Streptococcus pneumoniae Antigen (M - Final 01/10/22 15:20 Nasal Secretion SARS-CoV-2 Antigen (Rapid) - Final Meaningful Use Info Meaningful Use Diagnoses (Choose all that apply): None applicable Discharge Plan Admission Admit Date/Time: 01/10/22 14:15 Primary Reason for Your Visit: Viral gastroenteritis. Acute encephalopathy Attending Provider: Siddharth Chowdhury Primary Care Provider: Vinny Atkinson Consulting Providers: Ford March ; Jd Weeks ; Sharron Calderon Discharge Orders/Prescriptions Prescriptions: New furosemide 40 mg Tablet 40 mg PO DAILY Qty: 30 RF: 0 doxycycline hyclate 100 mg tablet 100 mg PO BID Qty: 60 RF: 0 Continued alprazolam 1 mg tablet 0.5 mg PO DAILY PRN (Reason: Sleep) RF: 0 levetiracetam 500 mg tablet 500 mg PO BID Qty: 60 RF: 2 levocarnitine 330 mg tablet 330 mg PO BID Qty: 60 RF: 2 pantoprazole 40 mg tablet,delayed release (DR/EC) 40 tablet PO DAILY RF: 0 fluconazole 200 mg tablet 200 mg PO DAILY RF: 0 ondansetron HCl 4 mg tablet 4 mg PO Q6H PRN (Reason: Nausea) RF: 0 warfarin 5 mg tablet 2 mg PO SUTHFRSA RF: 0 warfarin 1 mg tablet 4 mg PO MOTUWE RF: 0 tamsulosin 0.4 mg capsule 0.4 mg PO DINNER RF: 0 levothyroxine 75 mcg tablet 75 mcg PO DAILY RF: 0 Nephro-Baltazar 0.8 mg tablet 1 tab PO DAILY RF: 0 rifaximin 550 mg Tablet 550 mg PO BID RF: 0 isosorbide mononitrate 30 mg tablet extended release 24 hr 30 mg PO DAILY Qty: 90 RF: 3 carvedilol 6.25 mg tablet 6.25 mg PO BID Qty: 180 RF: 3 Changed ferrous sulfate 325 mg (65 mg iron) Tablet 325 mg PO QODAY Qty: 0 RF: 0 Discontinued doxycycline hyclate 100 MG capsule 100 mg PO BID RF: 0 lactulose 10 gram/15 mL solution 10 ml PO BID RF: 0 Referrals / Follow Up: Sharron Calderon DO [STAFF PHYSICIAN] - Within 2 Weeks (For ESRD on hemodialysis) Jd Weeks DO [STAFF PHYSICIAN] - Within 2 Weeks (In pulmonary clinic for history of obstructive sleep apnea.) Vinny Atkinson MD [Primary Care Provider] - Within 1 Week (Please call to setup a hospital follow up appointment. ) Jane Torres PA [PHYSICIAN RICE CLEANING MACHINE TENDER] - 02/01/22 8:30 am (FOR VALV ULAR HEART DISEASE) Disposition Disposition (needs filled in before D/C Order can be placed): Home Health Service Charges/Coding Visit Charges Inpatient E&M: 34021 Disch Hosp
--- NOTE | 2022-01-12 13:35 | CASEMGMT ---
D/C summ/instructions faxed to [facility] and call to Vaishnavi to notify of pt discharge, voices understanding. This RN CM to room and pt/ updated on HHC-voice understanding and state no further questions/concerns/needs. SStaten GIO CM
== END 2022-01-12 16:15 | disposition home health service (06) | DRG 871 ==
LOC: ED 11:06 → ICU 14:34 → PCU 01-11 17:32
PROVIDERS: Internal Medicine Critical Care Medicine; Admitting Provider Family Medicine; Emergency Provider Emergency Medicine; PCP Family Medicine; Visit Provider Internal Medicine
DX: A41.9 Sepsis, unspecified organism (principal); J96.01 Acute respiratory failure with hypoxia; N17.0 Acute kidney failure with tubular necrosis; G93.41 Metabolic encephalopathy; E43 Unspecified severe protein-calorie malnutrition; E72.20 Disorder of urea cycle metabolism, unspecified; N18.4 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, stage 4 (severe); I43 Cardiomyopathy in diseases classified elsewhere; I50.32 Chronic diastolic (congestive) heart failure; I48.92 Unspecified atrial flutter; I13.0 Hypertensive heart and chronic kidney disease with heart failure and stage 1 through stage 4 chronic kidney disease, or unspecified chronic kidney disease; A08.11 Acute gastroenteropathy due to Norwalk agent; J90 Pleural effusion, not elsewhere classified; I27.20 Pulmonary hypertension, unspecified; D69.6 Thrombocytopenia, unspecified; G40.909 Epilepsy, unspecified, not intractable, without status epilepticus; I48.0 Paroxysmal atrial fibrillation; Z99.2 Dependence on renal dialysis; D63.1 Anemia in chronic kidney disease; I25.10 Atherosclerotic heart disease of native coronary artery without angina pectoris; E78.5 Hyperlipidemia, unspecified; E03.9 Hypothyroidism, unspecified; E78.00 Pure hypercholesterolemia, unspecified; K76.1 Chronic passive congestion of liver; K75.81 Nonalcoholic steatohepatitis (NASH); I08.0 Rheumatic disorders of both mitral and aortic valves; N40.0 Benign prostatic hyperplasia without lower urinary tract symptoms; T37.8X5A Adverse effect of other specified systemic anti-infectives and antiparasitics, initial encounter; T36.4X5A Adverse effect of tetracyclines, initial encounter; Z68.25 Body mass index [BMI] 25.0-25.9, adult; Z95.0 Presence of cardiac pacemaker; Z95.2 Presence of prosthetic heart valve; Z79.01 Long term (current) use of 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; Z79.899 Other long term (current) drug therapy; Z86.74 Personal history of sudden cardiac arrest; Z86.718 Personal history of other venous thrombosis and embolism; Z85.72 Personal history of non-Hodgkin lymphomas; Z86.14 Personal history of Methicillin resistant Staphylococcus aureus infection; Z86.73 Personal history of transient ischemic attack (TIA), and cerebral infarction without residual deficits; Z86.16 Personal history of COVID-19
CPT/HCPCS: 36415; 71045; 74176; 80053; 81001; 82140; 82306; 83605; 83630; 83690; 83735; 83880; 83883; 84100; 84145; 84425; 84443; 84484; 85025; 85610; 85730; 87040; 87177; 87209; 87426; 87449; 87493; 87506; 87641; 92526; 92610; 93971; 97162; 97166; 97802; 99251; 99285; J7030; J7040; J7050; A4216; G0463; J2405

== ENCOUNTER 2022-01-16 13:26 | Outpatient (RCR) | payer MEDICARE, OTHER, SELFPAY ==
[2021-12-20 01:26] VITALS: BMI 28.8
[2021-12-20 13:19] LABS: Absolute Lymphocyte Count 1.08 X10^3/uL (0.83-4.51); Absolute Neutrophil Count 2.2 X10^3/uL (2.0-7.7); Basophil# 0.03 X10^3/uL; Basophil% 0.7 % (0-1); Eosinophil# 0.19 X10^3/uL; Eosinophils% 4.7 % (0-5); Hematocrit 37.8 % (40-54); Hemoglobin 12.4 g/dL (13.0-16.5); Lymphocyte # 1.08 X10^3/ul (0.83-4.51); Lymphocyte % 26.9 % (19-41); Mean Corp Hgb Conc 32.8 g/dL (32-36); Mean Corpuscular Hgb 31.4 pg (27.0-32.0); Mean Corpuscular Volume 95.7 fL (80-94); Mean Platelet Vol. 10.9 fl (6.2-12.0); Monocyte# 0.53 X10^3/uL; Monocyte% 13.2 % (0-10); NRBC Flagged by Analyzer 0 % (0-5); Neutrophil # 2.16 X10^3/uL (2.7-7.7); POSITIVE COUNT YES; Platelet Count 88 K/mm3 (150-450); RBC Distribution Width CV 18.7 % (11.6-14.6); RBC Distribution Width SD 62.1 fl (35.1-43.9); Red Blood Count 3.95 M/mm3 (4.6-6.2)
[2021-12-20 13:29] LABS: International Normalized Ratio 2.3; Prothrombin Time (Protime)PT. 24.5 SECONDS (11.7-14.9)
[2021-12-20 13:43] LABS: PTHIN 93.7 pg/mL (18.4-80.1)
[2021-12-20 13:49] LABS: AST(SGOT) 44 U/L (15-37); Alanine Aminotransfer ALT/SGPT 23 U/L (16-61); Albumin, Serum 3.1 g/dL (3.2-5.0); Alkaline Phosphatase 236 U/L (45-117); Anion Gap 4 (5-15); BUN 12 mg/dL (7-18); BUN/Creat Ratio 10.3 RATIO (10-20); Bilirubin, Direct 1.28 mg/dL (0.00-0.30); Calcium,Total 8.4 mg/dL (8.5-10.1); Chloride 99 mmol/L (98-107); Creatinine, Serum 1.16 mg/dL (0.70-1.30); EST Glomerular Filtration Rate 66 mL/min (>60); Est Glom Filt Rate - Afr Amer 79 mL/min (>60); Glucose 83 mg/dL (74-106); Iron 95 ug/dL (65-175); Iron Binding Capacity,Total 315 ug/dL (250-450); PERCENT IRON SATURATION 30.2 % (15.0-55.0); Potassium 2.8 mmol/L (3.5-5.1); Protein, Total 7.1 g/dL (6.4-8.2); Sodium Level 136 mmol/L (136-145)
[2021-12-28 10:52] LABS: International Normalized Ratio 1.9; Prothrombin Time (Protime)PT. 20.7 SECONDS (11.7-14.9)
[2022-01-02 09:25] LABS: Prothrombin Time (Protime)PT. 22.1 SECONDS (11.7-14.9)
[2022-01-09 12:12] LABS: International Normalized Ratio 2.3; Prothrombin Time (Protime)PT. 24.7 SECONDS (11.7-14.9)
[2022-01-09 12:25] LABS: Vitamin D,25 Hydroxy 52.6 ng/mL
[2022-01-23 12:18] LABS: KEPPRA (LEVETIRACETAM) 31.9 ug/mL (10.0-40.0)
[2022-01-24 12:08] LABS: Free Kappa Light Chains 100.9 mg/L (3.3-19.4); Free Lambda Light Chains 54.5 mg/L (5.7-26.3)
[2022-01-24 15:37] LABS: Vitamin B1, Thiamine 166.3 nmol/L (66.5-200.0)
== END 2022-01-16 23:59 | disposition home or self-care (01) ==
LOC: LAB 13:26
PROVIDERS: Psychiatry & Neurology Neurology; Family Provider Family Medicine; PCP Family Medicine; Referring Provider Internal Medicine Cardiovascular Disease; Visit Provider Internal Medicine Cardiovascular Disease
DX: Z95.2 Presence of prosthetic heart valve (principal); Z79.01 Long term (current) use of 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
CPT/HCPCS: 36415; 80048; 80076; 80177; 82140; 82306; 83540; 83550; 83883; 83970; 84425; 85025; 85610

== ENCOUNTER 2022-02-09 13:00 | Outpatient (CLI) | payer MEDICARE, OTHER, SELFPAY | END 2022-02-09 23:59 | disposition home or self-care (01) | PROVIDERS: PCP Family Medicine; Visit Provider Nurse Practitioner Acute Care | DX: G47.33 Obstructive sleep apnea (adult) (pediatric) (principal) | CPT/HCPCS: 98960; G0463 ==

== ENCOUNTER 2022-02-10 09:20 | Outpatient (RCR) | payer MEDICARE, OTHER, SELFPAY ==
[2022-01-17 09:51] VITALS: BMI 28.8
[2022-01-20 13:38] LABS: International Normalized Ratio 2.2; Prothrombin Time (Protime)PT. 23.5 SECONDS (11.7-14.9)
[2022-01-27 09:39] LABS: International Normalized Ratio 2.3; Prothrombin Time (Protime)PT. 24.4 SECONDS (11.7-14.9)
[2022-02-10 10:17] LABS: International Normalized Ratio 2.6; Prothrombin Time (Protime)PT. 27.1 SECONDS (11.7-14.9)
== END 2022-02-16 18:00 | disposition home or self-care (01) ==
LOC: LAB 09:20
PROVIDERS: Family Provider Family Medicine; PCP Family Medicine; Referring Provider Internal Medicine Cardiovascular Disease; Visit Provider Internal Medicine Cardiovascular Disease
DX: Z95.2 Presence of prosthetic heart valve (principal); Z79.01 Long term (current) use of 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
CPT/HCPCS: 36415; 85610

== ENCOUNTER 2022-02-16 13:16 | Outpatient (CLI) | payer MEDICARE, OTHER, SELFPAY ==
[2022-02-16 13:47] VITALS: PULSE 71; PULSE 79; PULSE 87; PULSE 88; PULSE 90; PULSE 91; O2SAT 92; O2SAT 93; O2SAT 94
--- NOTE | 2022-02-16 14:31 | PCM.PSN.6M ---
PSN 6 Minute Walk Test 6 Minute Walk Test 6 Minute Walk Test: 6 Minute Walk Test PSN:6-Minute Walk Test Start: 02/16/22 13:47 Freq: Status: Active Protocol: [id number] Document 02/16/22 13:47 FR (Rec: 02/16/22 13:50 FR [id number]) 6 Minute Walk Test Date Performed 02/16/22 Time Performed 13:30 Height 5 ft 7 in Weight: 72.575 kg Weight in Pounds 160.[address]: Sue Roberts MOTOR AND GENERATOR BRUSH CUTTER Assistive device used: Cane Pre-test Oxygen Delivery Method Room Air Pulse Ox (%) 94 Pulse Rate (60-100 beats/min) 71 Dyspnea Karrie Scale (0-10) 3 Exertion Karrie Scale (6-20) 10 1st minute Oxygen Delivery Method Room Air Pulse Ox (%) 94 Pulse Rate (60-100 beats/min) 90 2nd minute Oxygen Delivery Method Room Air Pulse Ox (%) 94 Pulse Rate (60-100 beats/min) 90 3rd minute Oxygen Delivery Method Room Air Pulse Ox (%) 92 Pulse Rate (60-100 beats/min) 91 4th minute Oxygen Delivery Method Room Air Pulse Ox (%) 92 Pulse Rate (60-100 beats/min) 90 5th minute Oxygen Delivery Method Room Air Pulse Ox (%) 92 Pulse Rate (60-100 beats/min) 87 6th minute Oxygen Delivery Method Room Air Pulse Ox (%) 93 Pulse Rate (60-100 beats/min) 88 Dyspnea Karrie Scale (0-10) 5 Exertion Karrie Scale (6-20) 11 Post-test Oxygen Delivery Method Room Air Pulse Ox (%) 94 Pulse Rate (60-100 beats/min) 79 Full Laps Walked 7 Partial Lap, Number of Tiles Walked 7 Total Distance Walked (ft) 420 Interpretation Interpretation: The patient was able to ambulate 420 feet over the course of 6 minutes on room air with the assistance of a cane and no breaks. The patient experienced desaturation from a baseline of 94% to as low as 92%. No significant tachycardia was noted. These findings are consistent with a musculoskeletal limitation exercise tolerance. Recommendations Recommendations: No supplemental oxygen is indicated at this time. However, patient may need to be retested if exercise tolerance improves.
== END 2022-02-16 23:59 | disposition home or self-care (01) ==
LOC: PSN 13:20
PROVIDERS: PCP Family Medicine; Referring Provider Nurse Practitioner Acute Care; Visit Provider Nurse Practitioner Acute Care
DX: R06.00 Dyspnea, unspecified (principal)
CPT/HCPCS: 94618

== ENCOUNTER 2022-02-20 06:19 | Outpatient (CLI) | payer MEDICARE, OTHER, SELFPAY | END 2022-02-20 23:59 | disposition home or self-care (01) | LOC: PSN 06:19 | PROVIDERS: PCP Family Medicine; Referring Provider Psychiatry & Neurology Neurology; Visit Provider Psychiatry & Neurology Neurology | DX: G93.40 Encephalopathy, unspecified (principal); G40.909 Epilepsy, unspecified, not intractable, without status epilepticus; G31.84 Mild cognitive impairment of uncertain or unknown etiology | CPT/HCPCS: 95819 ==

== ENCOUNTER 2022-03-03 12:46 | Outpatient (RCR) | payer MEDICARE, OTHER, SELFPAY ==
[2022-02-17 02:42] VITALS: BMI 28.8
[2022-02-17 09:54] LABS: International Normalized Ratio 2.8; Prothrombin Time (Protime)PT. 28.7 SECONDS (11.7-14.9)
[2022-03-03 13:43] LABS: International Normalized Ratio 3.1; Prothrombin Time (Protime)PT. 31.8 SECONDS (11.7-14.9)
== END 2022-03-03 18:00 | disposition home or self-care (01) ==
LOC: LAB 12:46
PROVIDERS: Family Provider Family Medicine; PCP Family Medicine; Referring Provider Internal Medicine Cardiovascular Disease; Visit Provider Internal Medicine Cardiovascular Disease
DX: Z95.2 Presence of prosthetic heart valve (principal); Z79.01 Long term (current) use of 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
CPT/HCPCS: 36415; 85610

== ENCOUNTER 2022-04-04 05:47 | Inpatient (IN) | payer MEDICARE, OTHER, SELFPAY ==
[2022-04-04] VITALS (9 sets, daily range): BP systolic 120–139; BP diastolic 47–61; PULSE 69–83; RESP 14–20; TEMP 36.4–37.1; O2SAT 97–100; BMI 24.9; BMI 24.0
--- NOTE | 2022-04-04 06:10 | EX.ED.DYSGE1 ---
HPI History of Present Illness Chief Complaint: Nosebleed Informant: patient and spouse/S.O. Narrative Narrative: Patient is a 72-year-old male with extensive medical history including end-stage renal disease on hemodialysis Tuesdays and Saturdays, atrial fibrillation, mechanical valce on chronic Coumadin therapy and recent supratherapeutic INR presenting with epistaxis. He states he has had epistaxis in the past and has been cauterized by Dr. Quintanilla. Started having nosebleed yesterday. Has had passage of clots and sometimes feels like there is bleeding going down the back of his throat. Currently the bleeding is stopped. The bleeding seems to be coming from the left side of his nose. Denies any lightheadedness. Was on his way to dialysis when he started bleeding again so he came to the emergency room. Last dialysis was on Sunday, 3 days ago. Patient does note that he is also had some bright red blood per rectum but correlates that to the start of his nosebleeds. Denies any lightheadedness or chest pain. No other complaints at this time. [facility] Medical History Abnormal results of thyroid function studies Airway intubation performed without difficulty Anemia in chronic kidney disease Atrial flutter Bacterial endocarditis Benign essential hypertension Biventricular cardiac pacemaker in situ (~05/26/16) CAD (coronary artery disease) Cardiomyopathy in disease classified elsewhere Cardiopulmonary arrest with successful resuscitation 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, stage III (moderate) Chronic renal insufficiency CKD stage G5/A1, GFR <15 and albumin creatinine ratio <30 mg/g Coagulopathy COVID-19 Diffuse large b-cell lymphoma, extranodal and solid organ sites Dyspnea Encounter for long-term (current) use of high-risk medication Endocarditis due to Staphylococcus GI bleed Gout History of diffuse large B-cell lymphoma History of DVT (deep vein thrombosis) History of non-Hodgkin's lymphoma History of pacemaker History of rheumatic fever as a child Hyperthyroidism Hypothyroidism (acquired) Infectious endocarditis Iron deficiency group home (current) use of 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 MRSA (methicillin resistant Staphylococcus aureus) infection Non-rheumatic mitral regurgitation Non-rheumatic mitral valve stenosis Non-ST elevation (NSTEMI) myocardial infarction MIA (obstructive sleep apnea) Paroxysmal ventricular tachycardia Pure hypercholesterolemia Rheumatic aortic stenosis Rheumatic mitral insufficiency Sepsis TIA (transient ischemic attack) (~11/19/15) Home Medications isosorbide mononitrate 30 mg tablet,extended release 24 hr 30 mg PO DAILY #90 tab 04/25/21 [Rx Last Taken 01/09/22] tamsulosin 0.4 mg PO DINNER 05/19/21 [History Last Taken 01/09/22] levothyroxine 75 mcg PO DAILY 08/24/21 [History Last Taken 01/10/22] fluconazole 200 mg tablet 200 mg PO DAILY tab 10/31/21 [History Last Taken 01/09/22] ondansetron HCl 4 mg tablet 4 mg PO Q6H PRN 10/31/21 [History Last Taken 01/10/22 04:15] Nephro-Baltazar 1 tab PO DAILY 01/10/22 [History Last Taken 01/09/22] rifaximin [Xifaxan] 550 mg PO BID 01/10/22 [History Last Taken 01/09/22] doxycycline hyclate 100 mg PO BID #60 tab 01/12/22 [Rx Last Taken Unknown] ferrous sulfate 325 mg PO QODAY #0 tab 01/12/22 [Rx Last Taken 01/09/22] furosemide 40 mg PO DAILY #30 tab 01/12/22 [Rx Last Taken Unknown] albuterol sulfate 90 mcg/actuation aerosol inhaler 2 puff INHALATION Q4H PRN #18 g 01/26/22 [Rx Last Taken Unknown] alprazolam 1 mg tablet 0.5 mg PO QHS tab 02/01/22 [History Last Taken Unknown] levetiracetam 500 mg tablet 500 mg PO BID tab 02/01/22 [History Last Taken Unknown] pantoprazole 40 mg tablet,delayed release 40 mg PO DAILY tab 02/01/22 [History Last Taken Unknown] warfarin 1 mg tablet 4 mg PO .COMPLEX tab 02/01/22 [History Last Taken Unknown] carvedilol [Coreg] 6.25 mg PO BID 04/04/22 [History Last Taken Unknown] levocarnitine [Carnitor] 330 mg PO BID 04/04/22 [History Last Taken Unknown] Allergy/AdvReac Type Severity Reaction Status Date / Time No Known Allergies Allergy Verified 02/01/22 08:47 Family History Father CAD (coronary artery disease) CABG Brother CAD (coronary artery disease) CABG Mother Diabetes Sister Breast cancer Diabetes Sister Cancer breast Diabetes Surgical History dual chamber pacemaker implantation (~10/2010) History of aortic valve replacement (~08/2003) History of appendectomy History of atrioventricular chiquita ablation History of cholecystectomy History of evacuation of hematoma History of heart valve replacement with mechanical valve History of heart valve replacement with mechanical valve History of mechanical aortic valve replacement (~1986) History of mitral valve repair (~08/2003) Social History household members: spouse housing: house Smoking Status: Never smoker alcohol intake: never substance use type: does not use caffeine: No what type of physical activity do you participate in: weight training and other details: Nustep frequency: 3-4 times per week duration: 45-60 minutes/day seatbelt use: always do you feel safe at home: Yes ROS ROS ED Constitutional Constitutional ED: Denies chills or fever(s) Eyes Eyes: Denies change in vision ENT ENT ED: Reports other Details: epistaxis Cardiovascular Cardiovascular: Denies chest pain or palpitations Respiratory/Chest Respiratory/Chest: Denies cough or dyspnea Gastrointestinal Gastrointestinal: Reports other Details: BRBPR ; Denies abdominal pain or vomiting Musculoskeletal Musculoskeletal: Denies arthralgias or myalgias Integumentary Denies rash Neurologic Neurologic: Denies headache(s) or weakness Hematologic/Lymphatic Hematologic/Lymphatic: Reports easy bleeding and easy bruising EXAM Physical Exam Const Vital Signs: 04/04/22 05:48 Temperature 97.6 F L Temperature Source Temporal Pulse Rate 83 Respiratory Rate 18 Blood Pressure 120/61 Blood Pressure Mean 80 Pulse Ox 99 Oxygen Delivery Method Room Air Positive well nourished and well developed General Appearance ED: well developed, NAD and pallor HEENT Reports moist mucous membranes HEENT Narrative: Dried blood noted in the left nares. No active bleeding. No obvious source of bleeding on exam. No blood noted in the oropharynx. Eyes PERRL and EOMs intact bilaterally General Eye ED: Yes pale conjunctiva Neck supple Chest Wall inspection of chest normal Chest Narrative: Tunneled dialysis catheter in the right anterior chest wall. Pacemaker pocket in the right anterior chest wall. Resp normal respiratory effort and clear to auscultation bilaterally Cardio regular rate, regular rhythm and no murmurs GI normal to inspection, nondistended, normoactive bowel sounds and non-tender GI Narrative: Nontender rectal exam. Red mixed with brown stool on rectal exam. No obvious bleeding hemorrhoid. Palpation: soft Extremity normal to inspection Psych mental status grossly normal Skin no rashes or lesions noted and no wounds General Skin Exam: pallor MDM MDM MDM Narrative Medical decision making narrative: Patient's evaluated for epistaxis, rectal bleeding and supratherapeutic INR. Patient's INR level yesterday was 4.3. Patient did not take his Coumadin yesterday. He started having nosebleeds yesterday which continued this morning. He also noticed of some bright red blood per rectum. Patient denies any pain. He was on his way to dialysis when the nosebleed started again so he came to the emergency room. Patient is hemodynamically stable. He is found to have a hemoglobin of 8.5. I spoke to [facility] who states that his hemoglobin on 03/28 was 9.9 and on 03/21 was 10.3. Patient does not have any active bleeding in the ER. There is no obvious source to cauterize in the nose. He does have blood on rectal exam. Given patient's supratherapeutic INR of 4.9 today, 1.5 g drop in his hemoglobin over the last week and actively and I do think he would benefit from admission. Patient and are agreeable with this plan of care. I spoke to ENT, Dr. Parada, at the request of admitting hospitalist. Did not recommend any acute intervention based on the patient's not current bleeding but is aware of the patient being admitted. Lab Data Attestation: I reviewed the patient's lab results. Labs: Laboratory Results - last 24 hr 04/04/22 04/04/22 04/04/22 06:00 06:00 06:00 WBC 6.3 RBC 2.61 L Hgb 8.5 L Hct 25.3 L MCV 96.9 H MCH 32.6 H MCHC 33.6 RDW Std Deviation 49.4 H RDW Coeff of Jennifer 13.9 Plt Count 131 L MPV 9.8 Immature Gran % (Auto) 0.300 Neut % (Auto) 65.3 Lymph % (Auto) 20.3 Petroleum % (Auto) 9.3 Eos % (Auto) 4.3 Baso % (Auto) 0.5 Absolute Neuts (auto) 4.1 Absolute Lymphs (auto) 1.28 Nucleated RBC % 0 PT 45.5 H INR 4.9 H* Sodium 139 Potassium 4.8 Chloride 101 Carbon Dioxide 27.0 Anion Gap 11 BUN 75 H Creatinine 6.40 H Estim Creat Clear Calc 9.61 Est GFR (MDRD) Af Amer 11 L Est GFR (MDRD) Non-Af 9 L BUN/Creatinine Ratio 11.7 Glucose 104 Calcium 9.3 Crossmatch 04/04/22 06:50 WBC RBC Hgb Hct MCV MCH MCHC RDW Std Deviation RDW Coeff of Jennifer Plt Count MPV Immature Gran % (Auto) Neut % (Auto) Lymph % (Auto) Petroleum % (Auto) Eos % (Auto) Baso % (Auto) Absolute Neuts (auto) Absolute Lymphs (auto) Nucleated RBC % PT INR Sodium Potassium Chloride Carbon Dioxide Anion Gap BUN Creatinine Estim Creat Clear Calc Est GFR (MDRD) Af Amer Est GFR (MDRD) Non-Af BUN/Creatinine Ratio Glucose Calcium Crossmatch See Detail Discharge Plan Triage Chief Complaint: Nosebleed ED Provider: Jodi Friedman Dx/Rx/DC Orders Clinical Impression: Supratherapeutic INR, Epistaxis, GI (gastrointestinal bleed), Acute on chronic anemia Prescriptions: No Action alprazolam [Xanax] 1 mg tablet 0.5 mg PO QHS RF: 0 pantoprazole 40 mg tablet,delayed release (DR/EC) 40 mg PO DAILY RF: 0 fluconazole 200 mg tablet 200 mg PO DAILY RF: 0 ondansetron HCl 4 mg tablet 4 mg PO Q6H PRN (Reason: Nausea) RF: 0 warfarin 1 mg tablet 4 mg PO .COMPLEX RF: 0 levetiracetam [Keppra] 500 mg tablet 500 mg PO BID RF: 0 albuterol sulfate [Ventolin HFA] 90 mcg/actuation HFA aerosol inhaler 2 puff inhalation Q4H PRN (Reason: shortness of breath or wheezing) Qty: 18 RF: 6 tamsulosin 0.4 mg capsule 0.4 mg PO DINNER RF: 0 levothyroxine 75 mcg tablet 75 mcg PO DAILY RF: 0 Nephro-Baltazar 0.8 mg tablet 1 tab PO DAILY RF: 0 Xifaxan 550 mg Tablet 550 mg PO BID RF: 0 furosemide 40 mg Tablet 40 mg PO DAILY Qty: 30 RF: 0 doxycycline hyclate 100 mg tablet 100 mg PO BID Qty: 60 RF: 0 ferrous sulfate 325 mg (65 mg iron) Tablet 325 mg PO QODAY Qty: 0 RF: 0 carvedilol [Coreg] 6.25 mg tablet 6.25 mg PO BID RF: 0 levocarnitine [Carnitor] 330 mg tablet 330 mg PO BID RF: 0 isosorbide mononitrate 30 mg tablet extended release 24 hr 30 mg PO DAILY Qty: 90 RF: 3 Primary Care Provider: Vinny Atkinson Referrals: Vinny Atkinson MD [Primary Care Provider] -
[2022-04-04] MEDS: Oxymetazoline 0.05% 1 SPRAY SPRAY.BTL 2 SPRAY NASAL (06:13)
[2022-04-04 06:18] LABS: Absolute Lymphocyte Count 1.28 X10^3/uL (0.83-4.51); Absolute Neutrophil Count 4.1 X10^3/uL (2.0-7.7); Basophil# 0.03 X10^3/uL; Basophil% 0.5 % (0-1); Eosinophil# 0.27 X10^3/uL; Eosinophils% 4.3 % (0-5); Hematocrit 25.3 % (40-54); Hemoglobin 8.5 g/dL (13.0-16.5); Lymphocyte # 1.28 X10^3/ul (0.83-4.51); Lymphocyte % 20.3 % (19-41); Mean Corp Hgb Conc 33.6 g/dL (32-36); Mean Corpuscular Hgb 32.6 pg (27.0-32.0); Mean Corpuscular Volume 96.9 fL (80-94); Mean Platelet Vol. 9.8 fl (6.2-12.0); Monocyte# 0.59 X10^3/uL; Monocyte% 9.3 % (0-10); NRBC Flagged by Analyzer 0 % (0-5); Neutrophil # 4.13 X10^3/uL (2.7-7.7); Neutrophil % 65.3 % (47-70); Platelet Count 131 K/mm3 (150-450); RBC Distribution Width CV 13.9 % (11.6-14.6); RBC Distribution Width SD 49.4 fl (35.1-43.9); Red Blood Count 2.61 M/mm3 (4.6-6.2); White Blood Count 6.3 K/mm3 (4.4-11.0)
[2022-04-04 06:30] LABS: International Normalized Ratio 4.9; Prothrombin Time (Protime)PT. 45.5 SECONDS (11.7-14.9)
[2022-04-04 06:31] LABS: Anion Gap 11 (5-15); BUN 75 mg/dL (7-18); BUN/Creat Ratio 11.7 RATIO (10-20); Calcium,Total 9.3 mg/dL (8.5-10.1); Chloride 101 mmol/L (98-107); EST Glomerular Filtration Rate 9 mL/min (>60); Est Glom Filt Rate - Afr Amer 11 mL/min (>60); Estimated Creatinine Clearance 9.61 ml/min; Glucose 104 mg/dL (74-106); Potassium 4.8 mmol/L (3.5-5.1); Sodium Level 139 mmol/L (136-145)
--- NOTE | 2022-04-04 07:25 | NURSING ---
MED SURG KITTOE ANEMIA, GI BLEED
--- NOTE | 2022-04-04 08:08 | HP.PCM.HOS_ITS ---
[facility] - General General Date of Admission: 04/04/22 Date of Service: 04/04/22 Chief Complaint: Nosebleed and bleeding per rectum HPI Narrative CHRISTIAN RICHMOND, is a 72 M with significant past medical history including mechanical aortic valve on systemic anticoagulation, stage renal disease on dialysis on Tuesdays and Saturdays who presents with epistaxis and bleeding per rectum. Per patient symptoms started a day prior to coming in. His symptoms started with epistaxis. He later noticed bleeding per rectum which he described as bright as red blood in the evening. In view of the persistent nature of his symptoms presented to the emergency department. Patient Coumadin had been held a day prior to his admission INR obtained as outpatient came back at 4.3. INR on admission was 4.9. Admitted to monitored bed with consultation placed to GI and ENT COUNT INCLUDES [facility] Medical History Abnormal results of thyroid function studies Airway intubation performed without difficulty Anemia in chronic kidney disease Atrial flutter Bacterial endocarditis Benign essential hypertension Biventricular cardiac pacemaker in situ (~05/26/16) CAD (coronary artery disease) Cardiomyopathy in disease classified elsewhere Cardiopulmonary arrest with successful resuscitation 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, stage III (moderate) Chronic renal insufficiency CKD stage G5/A1, GFR <15 and albumin creatinine ratio <30 mg/g Coagulopathy COVID-19 Diffuse large b-cell lymphoma, extranodal and solid organ sites Dyspnea Encounter for long-term (current) use of high-risk medication Endocarditis due to Staphylococcus GI bleed Gout History of diffuse large B-cell lymphoma History of DVT (deep vein thrombosis) History of non-Hodgkin's lymphoma History of pacemaker History of rheumatic fever as a child Hyperthyroidism Hypothyroidism (acquired) Infectious endocarditis 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 MRSA (methicillin resistant Staphylococcus aureus) infection Non-rheumatic mitral regurgitation Non-rheumatic mitral valve stenosis Non-ST elevation (NSTEMI) myocardial infarction MIA (obstructive sleep apnea) Paroxysmal ventricular tachycardia Pure hypercholesterolemia Rheumatic aortic stenosis Rheumatic mitral insufficiency Sepsis TIA (transient ischemic attack) (~11/19/15) Home Medications isosorbide mononitrate 30 mg tablet,extended release 24 hr 30 mg PO DAILY #90 tab 04/25/21 [Rx Last Taken 01/09/22] tamsulosin 0.4 mg PO DINNER 05/19/21 [History Last Taken 01/09/22] levothyroxine 75 mcg PO DAILY 10/06/21 [History Last Taken 01/10/22] fluconazole 200 mg tablet 200 mg PO DAILY tab 10/31/21 [History Last Taken 01/09/22] ondansetron HCl 4 mg tablet 4 mg PO Q6H PRN 10/31/21 [History Last Taken 01/10/22 04:15] Nephro-Baltazar 1 tab PO DAILY 01/10/22 [History Last Taken 01/09/22] rifaximin [Xifaxan] 550 mg PO BID 01/10/22 [History Last Taken 01/09/22] doxycycline hyclate 100 mg PO BID #60 tab 01/12/22 [Rx Last Taken Unknown] ferrous sulfate 325 mg PO QODAY #0 tab 01/12/22 [Rx Last Taken 01/09/22] furosemide 40 mg PO DAILY #30 tab 01/12/22 [Rx Last Taken Unknown] albuterol sulfate 90 mcg/actuation aerosol inhaler 2 puff INHALATION Q4H PRN #18 g 01/26/22 [Rx Last Taken Unknown] alprazolam 1 mg tablet 0.5 mg PO QHS tab 02/01/22 [History Last Taken Unknown] levetiracetam 500 mg tablet 500 mg PO BID tab 02/01/22 [History Last Taken Unknown] pantoprazole 40 mg tablet,delayed release 40 mg PO DAILY tab 02/01/22 [History Last Taken Unknown] warfarin 1 mg tablet 4 mg PO .COMPLEX tab 02/01/22 [History Last Taken Unknown] carvedilol [Coreg] 6.25 mg PO BID 04/04/22 [History Last Taken Unknown] levocarnitine [Carnitor] 330 mg PO BID 04/04/22 [History Last Taken Unknown] Allergy/AdvReac Type Severity Reaction Status Date / Time No Known Allergies Allergy Verified 02/01/22 08:47 Family History Father CAD (coronary artery disease) CABG Brother CAD (coronary artery disease) CABG Mother Diabetes Sister Breast cancer Diabetes Sister Cancer breast Diabetes Surgical History dual chamber pacemaker implantation (~10/2010) History of aortic valve replacement (~08/2003) History of appendectomy History of atrioventricular chiquita ablation History of cholecystectomy History of evacuation of hematoma History of heart valve replacement with mechanical valve History of heart valve replacement with mechanical valve History of mechanical aortic valve replacement (~1986) History of mitral valve repair (~08/2003) Social History household members: spouse housing: house Smoking Status: Never smoker alcohol intake: never substance use type: does not use caffeine: No what type of physical activity do you participate in: weight training and other details: Nustep frequency: 3-4 times per week duration: 45-60 minutes/day seatbelt use: always do you feel safe at home: Yes ROS ROS Narrative GENERAL: denies fever, chills, HEENT: Epistaxis RESPIRATORY: denies cough, sputum production, CARDIAC: denies chest pain, palpitations, orthopnea, GASTROINTESTINAL: Hematochezia GENITOURINARY: denies dysuria, urgency, frequency, EXTREMITY: denies swelling MUSCULOSKELETAL: denies current joint pain or tenderness NEUROLOGIC: denies focal numbness, weakness, tingling HEMATOLOGIC: denies easy bruising and/or hemorrhage INTEGUMENT: denies rashes PSYCHIATRIC: denies suicidal or homicidal ideation Vital Signs Vital Signs Vital Signs: 04/04/22 05:48 04/04/22 07:28 Temperature 97.6 F L 97.6 F L Temperature Source Temporal Temporal Pulse Rate 83 75 Respiratory Rate 18 18 Blood Pressure 120/61 120/50 L Blood Pressure Mean 80 73 Pulse Ox 99 97 Oxygen Delivery Method Room Air Room Air Weight Weight: 72.1 kg Body Mass Index (BMI) 24.9 Results Lab / Micro Data Result Diagrams: 04/04/22 06:00 04/04/22 06:00 Labs: Laboratory Results - last 24 hr 04/04/22 06:00: WBC 6.3, RBC 2.61 L, Hgb 8.5 L, Hct 25.3 L, MCV 96.9 H, MCH 32.6 H, MCHC 33.6, RDW Std Deviation 49.4 H, RDW Coeff of Jennifer 13.9, Plt Count 131 L, MPV 9.8, Immature Gran % (Auto) 0.300, Neut % (Auto) 65.3, Lymph % (Auto) 20.3, Centre % (Auto) 9.3, Eos % (Auto) 4.3, Baso % (Auto) 0.5, Absolute Neuts (auto) 4.1, Absolute Lymphs (auto) 1.28, Nucleated RBC % 0 04/04/22 06:00: PT 45.5 H, INR 4.9 H* 04/04/22 06:00: Sodium 139, Potassium 4.8, Chloride 101, Carbon Dioxide 27.0, Anion Gap 11, BUN 75 H, Creatinine 6.40 H, Estim Creat Clear Calc 9.61, Est GFR (MDRD) Af Amer 11 L, Est GFR (MDRD) Non-Af 9 L, BUN/Creatinine Ratio 11.7, Glucose 104, Calcium 9.3 04/04/22 06:50: Blood Type A POSITIVE, Antibody Screen NEGATIVE, Crossmatch See Detail Micro: Microbiology 04/04/22 06:43 Stool Stool Occult Blood (SANDRA) - Final Occult Blood Positive Assessment & Plan Assessment/Plan (1) Epistaxis: (2) Supratherapeutic INR: (3) GI (gastrointestinal bleed): (4) Acute on chronic anemia: PLAN: Patient is a 72-year-old gentleman presenting with epistaxis and hematochezia 1. Epistaxis ? Secondary to patient coagulopathy from Coumadin use. Patient has been admitted to a monitored bed Coumadin held monitoring INR consultation placed to ENT Dr. Red was notified by the ED physician 2. Hematochezia ? Secondary to coagulopathy from Coumadin use. Coumadin held patient started on on Protonix with consultation placed to Dr. Gilmore with gastroenterology 3. Coagulopathy ? Secondary to Coumadin use currently being held 4. Anemia And secondary to acute blood loss anemia as well as anemia of chronic disorder monitoring H&H with plans to transfuse if hemoglobin falls below 7 5. Valvular heart disease ? With mitral valve repair as well as mechanical aortic valve. Patient is on systemic anticoagulation with Coumadin. INR was elevated at 4.9 on admission goal is 2.5-3.5 6. Paroxysmal A. fib/flutter ? Status post AV node ablation 7. Conduction system disorder ? With previous pacemaker which was upgraded to biventricular pacemaker secondary to concern for pacemaker induced cardiomyopathy 8. Previous history of infectious endocarditis ? Patient is on chronic antibiotic suppressive therapy with doxycycline and fluconazole continued 9. Hypertension - Blood pressure controlled, home medications continued with dose adjustment as needed 10. BPH ? Patient is on tamsulosin did continue 11. Hypothyroidism - Patient is on levothyroxine home dose continued 12. GERD ? On PPI 13. Cirrhosis of the liver ? Patient is on rifaximin did continue 14. History of previous DVT in upper and lower extremities ? Patient is on systemic anticoagulation with Coumadin 15. Chronic thrombocytopenia ? Secondary to chronic liver disease monitoring with daily CBC 16. 5. End-stage renal disease ? 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 Sharron Calderon 17. DVT prophylaxis ? On Coumadin Advance planning; did discuss with the patient and family (patient's ) regarding advanced directives as well as CODE STATUS. Did explain the various scenarios involved ( FULL CODE, DNR CCA, DNR CCA with no intubation, and DNR CC and what each meant) patient and family elected to remain full code with CPR and intubation if needed. Order was placed. Time spent on discussion 18 minutes. Charges/Coding Visit Charges Inpatient E&M: 42054 Init Hosp L3 Procedures Hospitalists Procedures: 41015 Advncd Care Plan 30 Min
--- NOTE | 2022-04-04 09:32 | PCM.CONS.R ---
Assessment & Plan Assessment/Plan (1) ESRD (end stage renal disease) on dialysis: PLAN: dialysis today, no heparin (2) Epistaxis: (3) Supratherapeutic INR: PLAN: for valvular replacement (4) Acute on chronic anemia: PLAN: 1u prbc for hgb 7.9g, gen chronic weakness, hx heart disease (5) History of mitral valve repair: (6) History of aortic valve replacement: (7) Debility: HPI Consult Data Date of Consult: 04/04/22 HPI Narrative Reason for Consultation: ESRD dialysis mgmt HPI Narrative: CHRISTIAN RICHMOND, is a 72 M who presents to ED with persistent epistaxis. bloody stool since yesterday. Hgb low at 7.9g, INR elevated at 3.9. He is ESRD on HD qTues, Sat due for dialysis today. Denies abdominal pain, chest pain. Has chronic weakness, debilitation. [facility] Medical History Abnormal results of thyroid function studies Airway intubation performed without difficulty Anemia in chronic kidney disease Atrial flutter Bacterial endocarditis Benign essential hypertension Biventricular cardiac pacemaker in situ (~05/26/16) CAD (coronary artery disease) Cardiomyopathy in disease classified elsewhere Cardiopulmonary arrest with successful resuscitation 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, stage III (moderate) Chronic renal insufficiency CKD stage G5/A1, GFR <15 and albumin creatinine ratio <30 mg/g Coagulopathy COVID-19 Diffuse large b-cell lymphoma, extranodal and solid organ sites Dyspnea Encounter for long-term (current) use of high-risk medication Endocarditis due to Staphylococcus GI bleed Gout History of diffuse large B-cell lymphoma History of DVT (deep vein thrombosis) History of non-Hodgkin's lymphoma History of pacemaker History of rheumatic fever as a child Hyperthyroidism Hypothyroidism (acquired) Infectious endocarditis Iron deficiency long term (current) use of 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 MRSA (methicillin resistant Staphylococcus aureus) infection Non-rheumatic mitral regurgitation Non-rheumatic mitral valve stenosis Non-ST elevation (NSTEMI) myocardial infarction MIA (obstructive sleep apnea) Paroxysmal ventricular tachycardia Pure hypercholesterolemia Rheumatic aortic stenosis Rheumatic mitral insufficiency Sepsis TIA (transient ischemic attack) (~11/19/15) Home Medications isosorbide mononitrate 30 mg tablet,extended release 24 hr 30 mg PO DAILY #90 tab 04/25/21 [Rx Last Taken 01/09/22] tamsulosin 0.4 mg PO DINNER 05/19/21 [History Last Taken 01/09/22] levothyroxine 75 mcg PO DAILY 08/24/21 [History Last Taken 01/10/22] fluconazole 200 mg tablet 200 mg PO DAILY tab 10/31/21 [History Last Taken 01/09/22] ondansetron HCl 4 mg tablet 4 mg PO Q6H PRN 10/31/21 [History Last Taken 01/10/22 04:15] Nephro-Baltazar 1 tab PO DAILY 01/10/22 [History Last Taken 01/09/22] rifaximin [Xifaxan] 550 mg PO BID 01/10/22 [History Last Taken 01/09/22] doxycycline hyclate 100 mg PO BID #60 tab 01/12/22 [Rx Last Taken Unknown] ferrous sulfate 325 mg PO QODAY #0 tab 01/12/22 [Rx Last Taken 01/09/22] furosemide 40 mg PO DAILY #30 tab 01/12/22 [Rx Last Taken Unknown] albuterol sulfate 90 mcg/actuation aerosol inhaler 2 puff INHALATION Q4H PRN #18 g 01/26/22 [Rx Last Taken Unknown] alprazolam 1 mg tablet 0.5 mg PO QHS tab 02/01/22 [History Last Taken Unknown] levetiracetam 500 mg tablet 500 mg PO BID tab 02/01/22 [History Last Taken Unknown] pantoprazole 40 mg tablet,delayed release 40 mg PO DAILY tab 02/01/22 [History Last Taken Unknown] warfarin 1 mg tablet 4 mg PO .COMPLEX tab 02/01/22 [History Last Taken Unknown] carvedilol [Coreg] 6.25 mg PO BID 04/04/22 [History Last Taken Unknown] levocarnitine [Carnitor] 330 mg PO BID 04/04/22 [History Last Taken Unknown] Allergy/AdvReac Type Severity Reaction Status Date / Time No Known Allergies Allergy Verified 02/01/22 08:47 Family History Father CAD (coronary artery disease) CABG Brother CAD (coronary artery disease) CABG Mother Diabetes Sister Breast cancer Diabetes Sister Cancer breast Diabetes Surgical History dual chamber pacemaker implantation (~10/2010) History of aortic valve replacement (~08/2003) History of appendectomy History of atrioventricular chiquita ablation History of cholecystectomy History of evacuation of hematoma History of heart valve replacement with mechanical valve History of heart valve replacement with mechanical valve History of mechanical aortic valve replacement (~1986) History of mitral valve repair (~08/2003) Social History (Updated 04/04/22 @ 09:04 by Nalini Paz) household members: spouse housing: house current occupational status: retired current occupational exposures/hazards: No history of recent travel: No do you think of yourself as: straight/heterosexual Smoking Status: Never smoker alcohol intake: never substance use type: does not use caffeine: No what type of physical activity do you participate in: weight training and other details: Nustep frequency: 3-4 times per week duration: 45-60 minutes/day seatbelt use: always do you feel safe at home: Yes ROS Constitutional Constitutional: Reports weakness; Denies chills or fever(s) ENT HEENT: Reports epistaxis Cardiovascular Cardiovascular: Denies chest pain Respiratory/Chest Respiratory/Chest: Reports dyspnea on exertion; Denies hemoptysis Gastrointestinal Gastrointestinal: Denies diarrhea, nausea or vomiting Genitourinary Genitourinary: Denies hematuria Musculoskeletal Musculoskeletal: Reports other Details: gen weakness Neurologic Neurologic: Reports weakness; Denies tremor(s) Hematologic/Lymphatic Hematologic/Lymphatic: Reports anemia Physical Exam Const alert and oriented x3 Constitutional Narrative: gen weakness, debilitation, sallow complexion Resp clear to auscultation bilaterally Cardio regular rate Cardio Narrative: systolic click GI non-tender and non-distended Palpation: soft Extremity no clubbing, cyanosis or edema Skin General Skin Exam: Negative for petechiae or purpura Neuro Sensorium / Orientation: awake and alert Psych cooperative Lab / Micro Data Result Diagrams: 04/04/22 10:35 04/04/22 06:00 Labs: Laboratory Results - last 24 hr 04/04/22 06:00: WBC 6.3, RBC 2.61 L, Hgb 8.5 L, Hct 25.3 L, MCV 96.9 H, MCH 32.6 H, MCHC 33.6, RDW Std Deviation 49.4 H, RDW Coeff of Jennifer 13.9, Plt Count 131 L, MPV 9.8, Immature Gran % (Auto) 0.300, Neut % (Auto) 65.3, Lymph % (Auto) 20.3, [place] % (Auto) 9.3, Eos % (Auto) 4.3, Baso % (Auto) 0.5, Absolute Neuts (auto) 4.1, Absolute Lymphs (auto) 1.28, Nucleated RBC % 0 04/04/22 06:00: PT 45.5 H, INR 4.9 H* 04/04/22 06:00: Sodium 139, Potassium 4.8, Chloride 101, Carbon Dioxide 27.0, Anion Gap 11, BUN 75 H, Creatinine 6.40 H, Estim Creat Clear Calc 9.61, Est GFR (MDRD) Af Amer 11 L, Est GFR (MDRD) Non-Af 9 L, BUN/Creatinine Ratio 11.7, Glucose 104, Calcium 9.3 04/04/22 06:50: Blood Type A POSITIVE, Antibody Screen NEGATIVE, Crossmatch See Detail Micro: Microbiology 04/04/22 06:43 Stool Stool Occult Blood (SANDRA) - Final Occult Blood Positive
[2022-04-04 10:58] LABS: Hematocrit 23.9 % (40-54); Hemoglobin 7.9 g/dL (13.0-16.5)
--- NOTE | 2022-04-04 13:35 | CASEMGMT ---
GIO HEARN assessment: Face to Face with patient for initial transition planning/care coordination assessment. GIO HEARN introduced self and role at [facility], pt voices understanding and consents to assessment. Pt is lying in bed on room air in no distress getting HD treatment. Pt is A/Ox4 and answers all questions appropriately. Care providers, pharmacy, and demographics verified. Presentation: Nose bleed 04/03, INR 4.3-held last nights warfarin Admitting dx: GI bleed PCP: Demetrio Specialists: Kvng, nephro; Mitchel, cardio; Johnny, onc; Pako, pulm; Liver dr-does not know name Preferred Pharmacy: [facility] Insurance: [employer] A/B, AARP Prescription Benefit: [employer] Living Will/HPOA: Pt has LW/HPOA and is aware that they are on file at [facility]. Pt's , Bre Amador, is HPOA. LNOK: Bre Amador, ; Alina Guillen, daughter Living Arrangements: Pt lives with in 1 story condo with 3 steps in and states no concerns at home. Pt is independent with ADL's. Transportation: Pt's drives and states no transportation concerns. DME/HHC: Pt has the following DME: cane, grab bars, shower chair, and bench in shower. Pt states no need for any further DME. Pt states no hx of HHC but has been to [facility] in past. Pt is on HD at [facility]. Pt states no concerns with going home at time of discharge. Pt is retired. Pt does not smoke cigarettes or drink ETOH. Pt voices no further concerns/needs. CM to follow for any further discharge planning/needs. Advised pt to ask for CM if any further questions/concerns/needs arise, voices understanding. Pt Goal: Home Plan: [place] GIO HEARN
[2022-04-04 14:46] LABS: Hematocrit 28.3 % (40-54); Hemoglobin 9.5 g/dL (13.0-16.5)
--- NOTE | 2022-04-04 15:07 | DIALYSIS ---
Hemodialysis x4 hours completed at 1445 on a 3K bath, tolerated well, UF 1200mL, received 1 unit PRBCs while on treatment, no s/s of transfusion reaction, accessed via right chest tunneled dialysis catheter, worked well, dressing changed today, next treatment planned for Sunday
[2022-04-04] MEDS: Folic Acid/Vitamin B Comp W-C 1 Capsule 1 CAP PO (15:43)
[2022-04-04] MEDS: levETIRAcetam 500 MG Tablet PO ×2 (15:43→21:42)
[2022-04-04] MEDS: Doxycycline 100 MG CAPSULE PO ×2 (15:44→21:42)
[2022-04-04] MEDS: Furosemide 40 MG Tablet PO (15:45)
[2022-04-04] MEDS: rifAXIMin 550 MG Tablet PO ×2 (15:45→21:42)
[2022-04-04] MEDS: Isosorbide Mononitrate 30 MG Tablet PO (15:45)
[2022-04-04] MEDS: Pantoprazole Sodium 40 MG Tablet PO (15:45)
[2022-04-04] MEDS: Fluconazole 100 MG Tablet 200 MG PO (15:46)
--- NOTE | 2022-04-04 18:08 | PCM.CONS.GEN ---
Assessment & Plan Assessment/Plan (1) GI (gastrointestinal bleed): PLAN: The differential diagnosis for his GI bleed does include upper GI bleed with rapid transit, AVM secondary to being end-stage renal disease and having aortic valve replacement increases risk of angiodysplasia and telangiectasias. Supratherapeutic INR would allow for diverticular bleed or any other spontaneous bleed in the GI tract. He does have elevated BUN/creatinine ratio in the setting of the hemodialysis makes it less sensitive for an upper GI bleed. Since he is not bleeding at this time I recommend conservative therapy. If he does continue to bleed we may have to perform an upper lower endoscopy to evaluate his GI tract. We will continue to follow. Recommend maintaining INR between 2.5-3.5. HPI Consult Data Date of Consult: 04/04/22 HPI Narrative HPI Narrative: CHRISTIAN RICHMOND, is a 72 M who presents from home with worsening bleeding from the nose and rectal bleeding. His past medical history is positive for end-stage renal disease on hemodialysis, atrial fibrillation, mechanical aortic valve , mitral valve replacement, atrial fibrillation, ejection fraction less than 30% status post BiV AICD on Coumadin therapy. He states he has had epistaxis in the past and has been cauterized by Dr. Quintanilla. Started having nosebleed yesterday. Has had passage of clots and sometimes feels like there is bleeding going down the back of his throat. Currently the bleeding is stopped. The bleeding seems to be coming from the left side of his nose. Patient does note that he is also had some bright red blood per rectum but correlates that to the start of his nosebleeds. He says that he was having some dark bloody stools approximately 1 hour after the nosebleed he had started. He denies any lightheadedness or chest pain. No other complaints at this time. His hemoglobin was down to 7.6 on admission and he received 2 units of packed red blood cells. His bleeding has subsequently stopped per rectum but he still having a little bleeding from his nose. [facility] Medical History Abnormal results of thyroid function studies Airway intubation performed without difficulty Anemia in chronic kidney disease Atrial flutter Bacterial endocarditis Benign essential hypertension Biventricular cardiac pacemaker in situ (~05/26/16) CAD (coronary artery disease) Cardiomyopathy in disease classified elsewhere Cardiopulmonary arrest with successful resuscitation 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, stage III (moderate) Chronic renal insufficiency CKD stage G5/A1, GFR <15 and albumin creatinine ratio <30 mg/g Coagulopathy COVID-19 Diffuse large b-cell lymphoma, extranodal and solid organ sites Dyspnea Encounter for long-term (current) use of high-risk medication Endocarditis due to Staphylococcus GI bleed Gout History of diffuse large B-cell lymphoma History of DVT (deep vein thrombosis) History of non-Hodgkin's lymphoma History of pacemaker History of rheumatic fever as a child Hyperthyroidism Hypothyroidism (acquired) Infectious endocarditis Iron deficiency [facility] (current) use of 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 MRSA (methicillin resistant Staphylococcus aureus) infection Non-rheumatic mitral regurgitation Non-rheumatic mitral valve stenosis Non-ST elevation (NSTEMI) myocardial infarction MIA (obstructive sleep apnea) Paroxysmal ventricular tachycardia Pure hypercholesterolemia Rheumatic aortic stenosis Rheumatic mitral insufficiency Sepsis TIA (transient ischemic attack) (~11/19/15) Home Medications isosorbide mononitrate 30 mg tablet,extended release 24 hr 30 mg PO DAILY #90 tab 04/25/21 [Rx Last Taken 01/09/22] tamsulosin 0.4 mg PO DINNER 05/19/21 [History Last Taken 01/09/22] levothyroxine 75 mcg PO DAILY 08/24/21 [History Last Taken 01/10/22] fluconazole 200 mg tablet 200 mg PO DAILY tab 10/31/21 [History Last Taken 01/09/22] ondansetron HCl 4 mg tablet 4 mg PO Q6H PRN 10/31/21 [History Last Taken 01/10/22 04:15] Nephro-Baltazar 1 tab PO DAILY 01/10/22 [History Last Taken 01/09/22] rifaximin [Xifaxan] 550 mg PO BID 01/10/22 [History Last Taken 01/09/22] doxycycline hyclate 100 mg PO BID #60 tab 01/12/22 [Rx Last Taken Unknown] ferrous sulfate 325 mg PO QODAY #0 tab 01/12/22 [Rx Last Taken 01/09/22] furosemide 40 mg PO DAILY #30 tab 01/12/22 [Rx Last Taken Unknown] albuterol sulfate 90 mcg/actuation aerosol inhaler 2 puff INHALATION Q4H PRN #18 g 01/26/22 [Rx Last Taken Unknown] alprazolam 1 mg tablet 0.5 mg PO QHS tab 02/01/22 [History Last Taken Unknown] levetiracetam 500 mg tablet 500 mg PO BID tab 02/01/22 [History Last Taken Unknown] pantoprazole 40 mg tablet,delayed release 40 mg PO DAILY tab 02/01/22 [History Last Taken Unknown] warfarin 1 mg tablet 4 mg PO .COMPLEX tab 02/01/22 [History Last Taken Unknown] carvedilol [Coreg] 6.25 mg PO BID 04/04/22 [History Last Taken Unknown] levocarnitine [Carnitor] 330 mg PO BID 04/04/22 [History Last Taken Unknown] Allergy/AdvReac Type Severity Reaction Status Date / Time No Known Allergies Allergy Verified 02/01/22 08:47 Family History Father CAD (coronary artery disease) CABG Brother CAD (coronary artery disease) CABG Mother Diabetes Sister Breast cancer Diabetes Sister Cancer breast Diabetes Surgical History dual chamber pacemaker implantation (~10/2010) History of aortic valve replacement (~08/2003) History of appendectomy History of atrioventricular chiquita ablation History of cholecystectomy History of evacuation of hematoma History of heart valve replacement with mechanical valve History of heart valve replacement with mechanical valve History of mechanical aortic valve replacement (~1986) History of mitral valve repair (~08/2003) Social History (Updated 04/04/22 @ 09:04 by Nalini Paz) household members: spouse housing: house current occupational status: retired current occupational exposures/hazards: No history of recent travel: No do you think of yourself as: straight/heterosexual Smoking Status: Never smoker alcohol intake: never substance use type: does not use caffeine: No what type of physical activity do you participate in: weight training and other details: Nustep frequency: 3-4 times per week duration: 45-60 minutes/day seatbelt use: always do you feel safe at home: Yes ROS Gastrointestinal Gastrointestinal: Reports rectal bleeding Physical Exam Const alert General Appearance: cooperative Orientation / Consciousness: oriented to person HEENT hearing grossly normal bilaterally Head and Scalp: normal to inspection Face and Sinus: face symmetric Nose: external nose normal Mouth: oral and palatal mucosa normal Eyes conjunctivae normal General Eye: normal appearance of both eyes Neck full ROM General: normal visual inspection Lymph Lymphatic: no lymphadenopathy noted Chest inspection of chest normal and palpation of chest normal Chest: symmetrical chest wall rise Resp normal respiratory effort Effort and Inspection: able to speak in complete sentences Cardio regular rate GI non-distended Percussion: normal to percussion Rectal Exam: deferred Neuro Speech: speech normal Gait (Neuro): normal gait Lab / Micro Data Result Diagrams: 04/04/22 14:35 04/04/22 06:00 Labs: Laboratory Results - last 24 hr 04/04/22 06:00: WBC 6.3, RBC 2.61 L, Hgb 8.5 L, Hct 25.3 L, MCV 96.9 H, MCH 32.6 H, MCHC 33.6, RDW Std Deviation 49.4 H, RDW Coeff of Jennifer 13.9, Plt Count 131 L, MPV 9.8, Immature Gran % (Auto) 0.300, Neut % (Auto) 65.3, Lymph % (Auto) 20.3, [place] % (Auto) 9.3, Eos % (Auto) 4.3, Baso % (Auto) 0.5, Absolute Neuts (auto) 4.1, Absolute Lymphs (auto) 1.28, Nucleated RBC % 0 04/04/22 06:00: PT 45.5 H, INR 4.9 H* 04/04/22 06:00: Sodium 139, Potassium 4.8, Chloride 101, Carbon Dioxide 27.0, Anion Gap 11, BUN 75 H, Creatinine 6.40 H, Estim Creat Clear Calc 9.61, Est GFR (MDRD) Af Amer 11 L, Est GFR (MDRD) Non-Af 9 L, BUN/Creatinine Ratio 11.7, Glucose 104, Calcium 9.3 04/04/22 06:50: Blood Type A POSITIVE, Antibody Screen NEGATIVE, Crossmatch See Detail 04/04/22 10:35: Hgb 7.9 L, Hct 23.9 L 04/04/22 14:35: Hgb 9.5 L, Hct 28.3 L Micro: Microbiology 04/04/22 06:43 Stool Stool Occult Blood (SANDRA) - Final Occult Blood Positive Charges/Coding Visit Charges Inpatient E&M: 53065 Init Hosp L2
[2022-04-04] MEDS: Tamsulosin HCl 0.4 MG Capsule PO (18:11)
[2022-04-04] MEDS: LEVOCARNITINE 330 MG TABLET PO (18:11)
[2022-04-04 19:05] LABS: Hematocrit 26.6 % (40-54); Hemoglobin 8.9 g/dL (13.0-16.5)
[2022-04-04] MEDS: Carvedilol 6.25 MG Tablet PO (21:41)
[2022-04-04] MEDS: ALPRAZolam 0.5 MG Tablet PO (21:44)
[2022-04-04 23:48] LABS: Hematocrit 26.9 % (40-54); Hemoglobin 9.1 g/dL (13.0-16.5)
[2022-04-05] VITALS (10 sets, daily range): BP systolic 114–123; BP diastolic 44–73; PULSE 70–83; RESP 12–16; TEMP 36.6–36.8; O2SAT 95–97
[2022-04-05] MEDS: Levothyroxine 75 MCG Tablet PO (05:13)
[2022-04-05 06:46] LABS: Absolute Lymphocyte Count 1.18 X10^3/uL (0.83-4.51); Absolute Neutrophil Count 5.5 X10^3/uL (2.0-7.7); Basophil# 0.02 X10^3/uL; Basophil% 0.3 % (0-1); Eosinophil# 0.23 X10^3/uL; Hematocrit 27.2 % (40-54); Hemoglobin 8.9 g/dL (13.0-16.5); Lymphocyte # 1.18 X10^3/ul (0.83-4.51); Lymphocyte % 15.4 % (19-41); Mean Corp Hgb Conc 32.7 g/dL (32-36); Mean Corpuscular Hgb 31.3 pg (27.0-32.0); Mean Corpuscular Volume 95.8 fL (80-94); Mean Platelet Vol. 10.1 fl (6.2-12.0); Monocyte# 0.77 X10^3/uL; NRBC Flagged by Analyzer 0 % (0-5); Neutrophil # 5.45 X10^3/uL (2.7-7.7); Platelet Count 127 K/mm3 (150-450); RBC Distribution Width CV 14.9 % (11.6-14.6); RBC Distribution Width SD 51.8 fl (35.1-43.9); Red Blood Count 2.84 M/mm3 (4.6-6.2); White Blood Count 7.7 K/mm3 (4.4-11.0)
[2022-04-05 06:53] LABS: International Normalized Ratio 3.8; Prothrombin Time (Protime)PT. 37.4 SECONDS (11.7-14.9)
[2022-04-05 07:06] LABS: Anion Gap 11 (5-15); BUN 37 mg/dL (7-18); BUN/Creat Ratio 9.9 RATIO (10-20); Calcium,Total 9.4 mg/dL (8.5-10.1); Chloride 98 mmol/L (98-107); Creatinine, Serum 3.74 mg/dL (0.70-1.30); EST Glomerular Filtration Rate 17 mL/min (>60); Est Glom Filt Rate - Afr Amer 21 mL/min (>60); Estimated Creatinine Clearance 16.45 ml/min; Glucose 88 mg/dL (74-106); Magnesium 1.8 mg/dL (1.6-2.6); Phosphorus 4.2 mg/dL (2.5-4.9); Potassium 4.2 mmol/L (3.5-5.1); Sodium Level 135 mmol/L (136-145)
--- NOTE | 2022-04-05 07:32 | PN.HOSP_ITS ---
Subjective Subjective Patient seen hemoglobin 8.9. Patient did receive 1 unit PRBC transfusion ordered by nephrology. Patient still having epistaxis Objective Data Objective Data Vital Signs: Vital Signs Temp Pulse Resp BP Pulse Ox 98.3 F 70 12 114/44 L 97 04/05/22 03:15 04/05/22 03:15 04/05/22 03:15 04/05/22 03:15 04/05/22 03:15 Oxygen Delivery Method Room Air Weight: 68.3 kg Body Mass Index (BMI) 24.0 Intake & Output: Intake and Output for Last 24 Hours 04/03/22 04/04/22 04/05/22 23:59 23:59 23:59 Intake Total 930 / 930 600 / 600 Output Total 1200 / 1200 Balance -270 / -270 600 / 600 Lab / Micro Data Result Diagrams: 04/05/22 05:45 04/05/22 05:45 Labs: Laboratory Results - last 24 hr 04/04/22 06:50: Blood Type A POSITIVE, Antibody Screen NEGATIVE, Crossmatch See Detail 04/04/22 10:35: Hgb 7.9 L, Hct 23.9 L 04/04/22 14:35: Hgb 9.5 L, Hct 28.3 L 04/04/22 18:50: Hgb 8.9 L, Hct 26.6 L 04/04/22 23:28: Hgb 9.1 L, Hct 26.9 L 04/05/22 05:45: WBC 7.7, RBC 2.84 L, Hgb 8.9 L, Hct 27.2 L, MCV 95.8 H, MCH 31.3, MCHC 32.7, RDW Std Deviation 51.8 H, RDW Coeff of Jennifer 14.9 H, Plt Count 127 L, MPV 10.1, Immature Gran % (Auto) 0.300, Neut % (Auto) 71.0 H, Lymph % (Auto) 15.4 L, [place] % (Auto) 10.0, Eos % (Auto) 3.0, Baso % (Auto) 0.3, Absolute Neuts (auto) 5.5, Absolute Lymphs (auto) 1.18, Nucleated RBC % 0 04/05/22 05:45: Sodium 135 L, Potassium 4.2, Chloride 98, Carbon Dioxide 26.0, Anion Gap 11, BUN 37 H, Creatinine 3.74 H, Estim Creat Clear Calc 16.45, Est GFR (MDRD) Af Amer 21 L, Est GFR (MDRD) Non-Af 17 L, BUN/Creatinine Ratio 9.9 L, Glucose 88, Calcium 9.4, Phosphorus 4.2, Magnesium 1.8 04/05/22 05:45: PT 37.4 H, INR 3.8 Micro: Microbiology 04/04/22 06:43 Stool Stool Occult Blood (SANDRA) - Final Occult Blood Positive Physical Exam Narrative GENERAL: cooperative HEENT: Atraumatic; EYES; Anicteric, Normal Conjunctiva NECK; supple, normal thyroid, RESPIRATORY: Diminished to auscultation CARDIOVASCULAR: Regular S1 S2, GI: soft, normoactive bowel sounds, : No Renal angle tenderness; EXTREMITIES: No edema, no clubbing, MUSCULOSKELETAL: no muscle wasting NEURO: Awake; no lateralizing signs. SKIN: No Rash PSYCH; Flat affect Assessment & Plan Assessment/Plan (1) Epistaxis: (2) Supratherapeutic INR: (3) GI (gastrointestinal bleed): (4) Acute on chronic anemia: PLAN: Patient is a 72-year-old gentleman presenting with epistaxis and hematochezia 1. Epistaxis ? Secondary to patient coagulopathy from Coumadin use. Patient has been admitted to a monitored bed Coumadin held monitoring INR consultation placed to ENT Dr. Monsalve was notified by the ED physician -04/05/2022 patient still experiencing epistaxis call placed to Dr. Monsalve, message left 2. Hematochezia ? Secondary to coagulopathy from Coumadin use. Coumadin held patient started on on Protonix with consultation placed to Dr. Gilmore with gastroenterology ? 04/05/2022 patient was seen in consultation by Dr. Zheng who recommends conservative management at this point and to keep INR between 2.5-3.5. Patient INR 3.8 this morning 3. Coagulopathy ? Secondary to Coumadin use currently being held ? 04/05/2022 INR up to 3.8 we will continue holding Coumadin and repeat INR in the morning 4. Anemia And secondary to acute blood loss anemia as well as anemia of chronic disorder monitoring H&H with plans to transfuse if hemoglobin falls below 7 -04/05/2022; patient was transfused with 1 unit PRBC ordered by nephrology. Hemoglobin still remains low at 8.9 we will continue with monitoring 5. Valvular heart disease ? With mitral valve repair as well as mechanical aortic valve. Patient is on systemic anticoagulation with Coumadin. INR was elevated at 4.9 on admission goal is 2.5-3.5 6. Paroxysmal A. fib/flutter ? Status post AV node ablation 7. Conduction system disorder ? With previous pacemaker which was upgraded to biventricular pacemaker secondary to concern for pacemaker induced cardiomyopathy 8. Previous history of infectious endocarditis ? Patient is on chronic antibiotic suppressive therapy with doxycycline and fluconazole continued 9. Hypertension - Blood pressure controlled, home medications continued with dose adjustment as needed 10. BPH ? Patient is on tamsulosin did continue 11. Hypothyroidism - Patient is on levothyroxine home dose continued 12. GERD ? On PPI 13. Cirrhosis of the liver ? Patient is on rifaximin did continue 14. History of previous DVT in upper and lower extremities ? Patient is on systemic anticoagulation with Coumadin 15. Chronic thrombocytopenia ? Secondary to chronic liver disease monitoring with daily CBC 16. 5. End-stage renal disease ? Patient is on hemodialysis on Tuesdays and Saturdays consultation has been placed the patient chief technology officer Dr. Sharron Calderon 17. DVT prophylaxis ? On Coumadin Advance planning; did discuss with the patient and family (patient's ) regarding advanced directives as well as CODE STATUS. Did explain the various scenarios involved ( FULL CODE, DNR CCA, DNR CCA with no intubation, and DNR CC and what each meant) patient and family elected to remain full code with CPR and intubation if needed. Order was placed. Time spent on discussion 18 minutes. Charges/Coding Visit Charges Inpatient E&M: 42241 [facility] Hosp L3
[2022-04-05] MEDS: LEVOCARNITINE 330 MG TABLET PO ×2 (11:01→18:08)
[2022-04-05] MEDS: Furosemide 40 MG Tablet PO (11:01)
[2022-04-05] MEDS: Folic Acid/Vitamin B Comp W-C 1 Capsule 1 CAP PO (11:01)
[2022-04-05] MEDS: Pantoprazole Sodium 40 MG Tablet PO (11:01)
[2022-04-05] MEDS: Isosorbide Mononitrate 30 MG Tablet PO (11:01)
[2022-04-05] MEDS: Ferrous Sulfate 325 MG Tablet PO (11:01)
[2022-04-05] MEDS: Carvedilol 6.25 MG Tablet PO ×2 (11:01→21:41)
--- NOTE | 2022-04-05 11:06 | PN.RENAL_ITS ---
Subjective Subjective elevated INR, still with epistaxis. Hgb stable at 8.9g today Objective Data Objective Data Vital Signs: Vital Signs Temp Pulse Resp BP Pulse Ox 98.3 F 70 12 114/44 L 97 04/05/22 03:15 04/05/22 07:16 04/05/22 03:15 04/05/22 03:15 04/05/22 03:15 Oxygen Delivery Method Room Air Weight: 68.3 kg Body Mass Index (BMI) 24.0 Intake & Output: Intake and Output for Last 24 Hours 04/03/22 04/04/22 04/05/22 23:59 23:59 23:59 Intake Total 930 / 930 600 / 600 Output Total 1200 / 1200 Balance -270 / -270 600 / 600 Lab / Micro Data Result Diagrams: 04/05/22 05:45 04/05/22 05:45 Labs: Laboratory Results - last 24 hr 04/04/22 06:50: Blood Type A POSITIVE, Antibody Screen NEGATIVE, Crossmatch See Detail 04/04/22 14:35: Hgb 9.5 L, Hct 28.3 L 04/04/22 18:50: Hgb 8.9 L, Hct 26.6 L 04/04/22 23:28: Hgb 9.1 L, Hct 26.9 L 04/05/22 05:45: WBC 7.7, RBC 2.84 L, Hgb 8.9 L, Hct 27.2 L, MCV 95.8 H, MCH 31.3, MCHC 32.7, RDW Std Deviation 51.8 H, RDW Coeff of Jennifer 14.9 H, Plt Count 127 L, MPV 10.1, Immature Gran % (Auto) 0.300, Neut % (Auto) 71.0 H, Lymph % (Auto) 15.4 L, [place] % (Auto) 10.0, Eos % (Auto) 3.0, Baso % (Auto) 0.3, Absolute Neuts (auto) 5.5, Absolute Lymphs (auto) 1.18, Nucleated RBC % 0 04/05/22 05:45: Sodium 135 L, Potassium 4.2, Chloride 98, Carbon Dioxide 26.0, Anion Gap 11, BUN 37 H, Creatinine 3.74 H, Estim Creat Clear Calc 16.45, Est GFR (MDRD) Af Amer 21 L, Est GFR (MDRD) Non-Af 17 L, BUN/Creatinine Ratio 9.9 L, Glucose 88, Calcium 9.4, Phosphorus 4.2, Magnesium 1.8 04/05/22 05:45: PT 37.4 H, INR 3.8 Micro: Microbiology 04/04/22 06:43 Stool Stool Occult Blood (SANDRA) - Final Occult Blood Positive Physical Exam Const alert and oriented x3 HEENT HEENT Narrative: epistaxis Resp clear to auscultation bilaterally Cardio regular rate Extremity no clubbing, cyanosis or edema Assessment & Plan Assessment/Plan (1) ESRD (end stage renal disease) on dialysis: PLAN: dialysis 2x/wk, next dialysis Sat. HD yesterday without incident (2) Epistaxis: (3) Supratherapeutic INR: PLAN: for valvular replacement (4) Acute on chronic anemia: PLAN: hgb stable at 8.9g (5) History of mitral valve repair: (6) History of aortic valve replacement: (7) Debility:
--- NOTE | 2022-04-05 12:01 | PCM.CONS.GEN ---
Assessment & Plan Assessment/Plan (1) Epistaxis: PLAN: left anterior / inferior septal source cauterized. may change left cotton ball as needed. continue afrin TID today then stop. f/u at [facility] in 2 wks. HPI Consult Data Date of Consult: 04/05/22 HPI Narrative HPI Narrative: CHRISTIAN RICHMOND, is a 72 M who presents with epistaxis after being admitted for a supratherapeutic INR (mechanical valve). no current bleeding with tissue in left nostril. FORMERLY [facility] Medical History Abnormal results of thyroid function studies Airway intubation performed without difficulty Anemia in chronic kidney disease Atrial flutter Bacterial endocarditis Benign essential hypertension Biventricular cardiac pacemaker in situ (~05/26/16) CAD (coronary artery disease) Cardiomyopathy in disease classified elsewhere Cardiopulmonary arrest with successful resuscitation 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, stage III (moderate) Chronic renal insufficiency CKD stage G5/A1, GFR <15 and albumin creatinine ratio <30 mg/g Coagulopathy COVID-19 Diffuse large b-cell lymphoma, extranodal and solid organ sites Dyspnea Encounter for long-term (current) use of high-risk medication Endocarditis due to Staphylococcus GI bleed Gout History of diffuse large B-cell lymphoma History of DVT (deep vein thrombosis) History of non-Hodgkin's lymphoma History of pacemaker History of rheumatic fever as a child Hyperthyroidism Hypothyroidism (acquired) Infectious endocarditis Iron deficiency group home (current) use of 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 MRSA (methicillin resistant Staphylococcus aureus) infection Non-rheumatic mitral regurgitation Non-rheumatic mitral valve stenosis Non-ST elevation (NSTEMI) myocardial infarction MIA (obstructive sleep apnea) Paroxysmal ventricular tachycardia Pure hypercholesterolemia Rheumatic aortic stenosis Rheumatic mitral insufficiency Sepsis TIA (transient ischemic attack) (~11/19/15) Home Medications isosorbide mononitrate 30 mg tablet,extended release 24 hr 30 mg PO DAILY #90 tab 04/25/21 [Rx Last Taken 01/09/22] tamsulosin 0.4 mg PO DINNER 05/19/21 [History Last Taken 01/09/22] levothyroxine 75 mcg PO DAILY 08/24/21 [History Last Taken 01/10/22] fluconazole 200 mg tablet 200 mg PO DAILY tab 10/31/21 [History Last Taken 01/09/22] ondansetron HCl 4 mg tablet 4 mg PO Q6H PRN 10/31/21 [History Last Taken 01/10/22 04:15] Nephro-Baltazar 1 tab PO DAILY 01/10/22 [History Last Taken 01/09/22] rifaximin [Xifaxan] 550 mg PO BID 01/10/22 [History Last Taken 01/09/22] doxycycline hyclate 100 mg PO BID #60 tab 01/12/22 [Rx Last Taken Unknown] ferrous sulfate 325 mg PO QODAY #0 tab 01/12/22 [Rx Last Taken 01/09/22] furosemide 40 mg PO DAILY #30 tab 01/12/22 [Rx Last Taken Unknown] albuterol sulfate 90 mcg/actuation aerosol inhaler 2 puff INHALATION Q4H PRN #18 g 01/26/22 [Rx Last Taken Unknown] alprazolam 1 mg tablet 0.5 mg PO QHS tab 02/01/22 [History Last Taken Unknown] levetiracetam 500 mg tablet 500 mg PO BID tab 02/01/22 [History Last Taken Unknown] pantoprazole 40 mg tablet,delayed release 40 mg PO DAILY tab 02/01/22 [History Last Taken Unknown] warfarin 1 mg tablet 4 mg PO .COMPLEX tab 02/01/22 [History Last Taken Unknown] carvedilol [Coreg] 6.25 mg PO BID 04/04/22 [History Last Taken Unknown] levocarnitine [Carnitor] 330 mg PO BID 04/04/22 [History Last Taken Unknown] Allergy/AdvReac Type Severity Reaction Status Date / Time No Known Allergies Allergy Verified 02/01/22 08:47 Family History Father CAD (coronary artery disease) CABG Brother CAD (coronary artery disease) CABG Mother Diabetes Sister Breast cancer Diabetes Sister Cancer breast Diabetes Surgical History dual chamber pacemaker implantation (~10/2010) History of aortic valve replacement (~08/2003) History of appendectomy History of atrioventricular chiquita ablation History of cholecystectomy History of evacuation of hematoma History of heart valve replacement with mechanical valve History of heart valve replacement with mechanical valve History of mechanical aortic valve replacement (~1986) History of mitral valve repair (~08/2003) Social History (Updated 04/04/22 @ 09:04 by Nalini Paz) household members: spouse housing: house current occupational status: retired current occupational exposures/hazards: No history of recent travel: No do you think of yourself as: straight/heterosexual Smoking Status: Never smoker alcohol intake: never substance use type: does not use caffeine: No what type of physical activity do you participate in: weight training and other details: Nustep frequency: 3-4 times per week duration: 45-60 minutes/day seatbelt use: always do you feel safe at home: Yes ROS Constitutional Constitutional: Reports systems reviewed and no addt'l complaints, except as documented Physical Exam Const alert and oriented x3 General Appearance: cooperative Orientation / Consciousness: awake Exam Limitations: no limitations HEENT normocephalic HEENT Narrative: left anterior septal bleeding source. Lab / Micro Data Result Diagrams: 04/05/22 05:45 04/05/22 05:45 Labs: Laboratory Results - last 24 hr 04/04/22 06:50: Blood Type A POSITIVE, Antibody Screen NEGATIVE, Crossmatch See Detail 04/04/22 14:35: Hgb 9.5 L, Hct 28.3 L 04/04/22 18:50: Hgb 8.9 L, Hct 26.6 L 04/04/22 23:28: Hgb 9.1 L, Hct 26.9 L 04/05/22 05:45: WBC 7.7, RBC 2.84 L, Hgb 8.9 L, Hct 27.2 L, MCV 95.8 H, MCH 31.3, MCHC 32.7, RDW Std Deviation 51.8 H, RDW Coeff of Jennifer 14.9 H, Plt Count 127 L, MPV 10.1, Immature Gran % (Auto) 0.300, Neut % (Auto) 71.0 H, Lymph % (Auto) 15.4 L, [place] % (Auto) 10.0, Eos % (Auto) 3.0, Baso % (Auto) 0.3, Absolute Neuts (auto) 5.5, Absolute Lymphs (auto) 1.18, Nucleated RBC % 0 04/05/22 05:45: Sodium 135 L, Potassium 4.2, Chloride 98, Carbon Dioxide 26.0, Anion Gap 11, BUN 37 H, Creatinine 3.74 H, Estim Creat Clear Calc 16.45, Est GFR (MDRD) Af Amer 21 L, Est GFR (MDRD) Non-Af 17 L, BUN/Creatinine Ratio 9.9 L, Glucose 88, Calcium 9.4, Phosphorus 4.2, Magnesium 1.8 04/05/22 05:45: PT 37.4 H, INR 3.8
--- NOTE | 2022-04-05 12:04 | PCM.OPRPT ---
Problems Associated Problem List Diagnoses (1) Epistaxis: Report of Operation Date of Procedure: 04/05/22 Pre-Operative Diagnosis: epistaxis Post-Operative Diagnosis: epistaxis Surgery/Procedure Performed:: anterior cauterization Surgeon: marija Description of Procedure: the left nasal cavity was evaluated. an anterior septal source was seen and cauterized with silver nitrate.
[2022-04-05] MEDS: Fluconazole 100 MG Tablet 200 MG PO (12:07)
[2022-04-05] MEDS: rifAXIMin 550 MG Tablet PO ×2 (12:08→21:41)
[2022-04-05] MEDS: Doxycycline 100 MG CAPSULE PO ×2 (12:08→21:42)
[2022-04-05] MEDS: levETIRAcetam 500 MG Tablet PO ×2 (12:08→21:42)
[2022-04-05] MEDS: Oxymetazoline 0.05% 1 SPRAY SPRAY.BTL NASAL ×2 (15:16→21:39)
[2022-04-05] MEDS: Tamsulosin HCl 0.4 MG Capsule PO (18:08)
[2022-04-05] MEDS: ALPRAZolam 0.5 MG Tablet PO (21:46)
[2022-04-06 03:15] VITALS: BP 117/52; PULSE 70; RESP 16; TEMP 36.4; O2SAT 98
[2022-04-06 04:37] VITALS: PULSE 71
[2022-04-06] MEDS: Oxymetazoline 0.05% 1 SPRAY SPRAY.BTL NASAL (06:19)
[2022-04-06] MEDS: Levothyroxine 75 MCG Tablet PO (06:19)
[2022-04-06 06:25] LABS: Absolute Lymphocyte Count 1.36 X10^3/uL (0.83-4.51); Absolute Neutrophil Count 3.8 X10^3/uL (2.0-7.7); Basophil# 0.03 X10^3/uL; Basophil% 0.5 % (0-1); Eosinophil# 0.35 X10^3/uL; Eosinophils% 5.6 % (0-5); Hematocrit 24.5 % (40-54); Hemoglobin 8.3 g/dL (13.0-16.5); Lymphocyte # 1.36 X10^3/ul (0.83-4.51); Lymphocyte % 21.8 % (19-41); Mean Corp Hgb Conc 33.9 g/dL (32-36); Mean Corpuscular Volume 94.6 fL (80-94); Mean Platelet Vol. 9.7 fl (6.2-12.0); Monocyte# 0.72 X10^3/uL; Monocyte% 11.5 % (0-10); NRBC Flagged by Analyzer 0 % (0-5); Neutrophil # 3.76 X10^3/uL (2.7-7.7); Neutrophil % 60.1 % (47-70); Platelet Count 131 K/mm3 (150-450); RBC Distribution Width CV 14.6 % (11.6-14.6); RBC Distribution Width SD 49.9 fl (35.1-43.9); Red Blood Count 2.59 M/mm3 (4.6-6.2); White Blood Count 6.3 K/mm3 (4.4-11.0)
[2022-04-06 06:33] LABS: International Normalized Ratio 3.7; Prothrombin Time (Protime)PT. 36.5 SECONDS (11.7-14.9)
[2022-04-06 06:46] LABS: Anion Gap 10 (5-15); BUN 49 mg/dL (7-18); BUN/Creat Ratio 10.1 RATIO (10-20); Calcium,Total 9.5 mg/dL (8.5-10.1); Chloride 97 mmol/L (98-107); Creatinine, Serum 4.86 mg/dL (0.70-1.30); EST Glomerular Filtration Rate 13 mL/min (>60); Est Glom Filt Rate - Afr Amer 15 mL/min (>60); Estimated Creatinine Clearance 12.66 ml/min; Glucose 87 mg/dL (74-106); Potassium 4.5 mmol/L (3.5-5.1); Sodium Level 132 mmol/L (136-145)
[2022-04-06 07:00] VITALS: PULSE 70
--- NOTE | 2022-04-06 07:35 | DS.PCM_ITS ---
Providers Date of Admission: 04/04/22 Primary Care Physician: Dr. Vinny Atkinson MD Consultations 04/04/22 07:23 Consult: Gastroenterology Routine Consulting Provider: [facility] Reason for Consult: RECTAL BLEED EMERGENT Consult: No MD Notified: Yes Date Notified: 04/04/22 Time Notified: 07:23 Method of Notification: Text 04/04/22 07:33 Consult: ENT Routine Consulting Provider: Rolo Mireles Reason for Consult: Epistaxis EMERGENT Consult: No Notified: Yes Date Notified: 04/04/22 Time Notified: 07:33 Method of Notification: ED Physician Initiated Consult: Nephrology Routine Consulting Provider: Sharron Calderon Reason for Consult: ESRD EMERGENT Consult: No Notified: Yes Date Notified: 04/04/22 Time Notified: 07:34 Method of Notification: Text Reason For Visit: GI BLEED Diagnosis Discharge Diagnosis (1) Epistaxis: Status: Acute Code(s): R04.0 - Epistaxis Medications at Discharge Home Medications isosorbide mononitrate 30 mg tablet,extended release 24 hr 30 mg PO DAILY #90 tab 04/25/21 tamsulosin 0.4 mg PO DINNER 05/19/21 levothyroxine 75 mcg PO DAILY 08/24/21 fluconazole 200 mg tablet 200 mg PO DAILY tab 10/31/21 ondansetron HCl 4 mg tablet 4 mg PO Q6H PRN 10/31/21 Nephro-Baltazar 1 tab PO DAILY 01/10/22 Xifaxan 550 mg PO BID 01/10/22 doxycycline hyclate 100 mg PO BID #60 tab 01/12/22 ferrous sulfate 325 mg PO QODAY #0 tab 01/12/22 furosemide 40 mg PO DAILY #30 tab 01/12/22 albuterol sulfate 90 mcg/actuation aerosol inhaler 2 puff INHALATION Q4H PRN #18 g 01/26/22 alprazolam 1 mg tablet 0.5 mg PO QHS tab 02/01/22 levetiracetam 500 mg tablet 500 mg PO BID tab 02/01/22 pantoprazole 40 mg tablet,delayed release 40 mg PO DAILY tab 02/01/22 carvedilol [Coreg] 6.25 mg PO BID 04/04/22 levocarnitine [Carnitor] 330 mg PO BID 04/04/22 oxymetazoline [Nasal [place] (oxymetazoline)] 1 spray NASAL TID #30 ml 04/06/22 warfarin 4 mg PO .COMPLEX #0 tab 04/06/22 Hospital Course Summary of Care Provided Minutes Spent on Discharge: 35 Hospital Course: 1. Epistaxis ? Secondary to patient coagulopathy from Coumadin use. Patient has been admitted to a monitored bed Coumadin held monitoring INR consultation placed to ENT Dr. Monsalve was notified by the ED physician -04/05/2022 patient still experiencing epistaxis call placed to Dr. Mireles, message left 04/06/2022. Patient underwent anterior cauterization by Dr. Mireles on 04/05/2022. Prescription was written for Afrin 2. Hematochezia ? Secondary to coagulopathy from Coumadin use. Coumadin held patient started on on Protonix with consultation placed to Dr. Gilmore with gastroenterology ? 04/05/2022 patient was seen in consultation by Dr. Zheng who recommends conservative management at this point and to keep INR between 2.5-3.5. Patient INR 3.8 this morning 3. Coagulopathy ? Secondary to Coumadin use currently being held ? 04/05/2022 INR up to 3.8 we will continue holding Coumadin and repeat INR in the morning ? 04/06/2022 patient INR 3.7. Patient was instructed to hold Coumadin for a day, to follow-up with primary care physician Dr. Vinny Atkinson on 04/07/2022 for repeat INR and if Coumadin is less than 3.5 PCP to resume Coumadin dosing 4. Anemia And secondary to acute blood loss anemia as well as anemia of chronic disorder monitoring H&H with plans to transfuse if hemoglobin falls below 7 -04/05/2022; patient was transfused with 1 unit PRBC ordered by nephrology. Hemoglobin still remains low at 8.9 we will continue with monitoring 5. Valvular heart disease ? With mitral valve repair as well as mechanical aortic valve. Patient is on systemic anticoagulation with Coumadin. INR was elevated at 4.9 on admission goal is 2.5-3.5 6. Paroxysmal A. fib/flutter ? Status post AV node ablation 7. Conduction system disorder ? 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 Previous history of infectious endocarditis ? Patient is on chronic antibiotic suppressive therapy with doxycycline and fluconazole continued 9. Hypertension - Blood pressure controlled, home medications continued with dose adjustment as needed 10. BPH ? Patient is on tamsulosin did continue 11. Hypothyroidism - Patient is on levothyroxine home dose continued 12. GERD ? On PPI 13. Cirrhosis of the liver ? Patient is on rifaximin did continue 14. History of previous DVT in upper and lower extremities ? Patient is on systemic anticoagulation with Coumadin 15. Chronic thrombocytopenia ? Secondary to chronic liver disease monitoring with daily CBC 16. 5. End-stage renal disease ? 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 Sharron Calderon 17. DVT prophylaxis ? On Coumadin Physical Exam Narrative GENERAL: cooperative HEENT: Atraumatic; EYES; Anicteric, Normal Conjunctiva NECK; supple, normal thyroid, RESPIRATORY: Diminished to auscultation CARDIOVASCULAR: Regular S1 S2, GI: soft, normoactive bowel sounds, : No Renal angle tenderness; EXTREMITIES: No edema, no clubbing, MUSCULOSKELETAL: no muscle wasting NEURO: Awake; no lateralizing signs. SKIN: No Rash PSYCH; Flat affect Weight / BMI Weight Weight: 68.2 kg Body Mass Index (BMI) 24.0 ABG / Lab / Microbiology Data Result Diagrams: 04/06/22 06:05 04/06/22 06:05 Laboratory: Laboratory Results - last 24 hr 04/06/22 06:05: WBC 6.3, RBC 2.59 L, Hgb 8.3 L, Hct 24.5 L, MCV 94.6 H, MCH 32.0, MCHC 33.9, RDW Std Deviation 49.9 H, RDW Coeff of Jennifer 14.6, Plt Count 131 L, MPV 9.7, Immature Gran % (Auto) 0.500, Neut % (Auto) 60.1, Lymph % (Auto) 21.8, [place] % (Auto) 11.5 H, Eos % (Auto) 5.6 H, Baso % (Auto) 0.5, Absolute Neuts (auto) 3.8, Absolute Lymphs (auto) 1.36, Nucleated RBC % 0 04/06/22 06:05: Sodium 132 L, Potassium 4.5, Chloride 97 L, Carbon Dioxide 25.0, Anion Gap 10, BUN 49 H, Creatinine 4.86 H, Estim Creat Clear Calc 12.66, Est GFR (MDRD) Af Amer 15 L, Est GFR (MDRD) Non-Af 13 L, BUN/Creatinine Ratio 10.1, Glucose 87, Calcium 9.5 04/06/22 06:05: PT 36.5 H, INR 3.7 Microbiology: Microbiology 04/04/22 06:43 Stool Stool Occult Blood (SANDRA) - Final Occult Blood Positive D/C Instructions Discharge Diet: Renal Diet Discharge Activity: Return to Normal Activity Call your doctor if you observe: Fever of 101 or Higher, Shortness of breath, Fainting spells and Chest pain Meaningful Use Info Meaningful Use Diagnoses (Choose all that apply): None applicable Discharge Plan Admission Admit Date/Time: 04/04/22 07:18 Attending Provider: Adriel Peralta Primary Care Provider: Vinny Atkinson Consulting Providers: Rolo Mireles ; Sharron Calderon Discharge Orders/Prescriptions Prescriptions: New oxymetazoline [Nasal [place] (oxymetazoline)] 0.05 % [place],Non-Aerosol 1 spray NASAL TID Qty: 30 RF: 0 Continued alprazolam [Xanax] 1 mg tablet 0.5 mg PO QHS RF: 0 pantoprazole 40 mg tablet,delayed release (DR/EC) 40 mg PO DAILY RF: 0 fluconazole 200 mg tablet 200 mg PO DAILY RF: 0 ondansetron HCl 4 mg tablet 4 mg PO Q6H PRN (Reason: Nausea) RF: 0 levetiracetam [Keppra] 500 mg tablet 500 mg PO BID RF: 0 albuterol sulfate [Ventolin HFA] 90 mcg/actuation HFA aerosol inhaler 2 puff inhalation Q4H PRN (Reason: shortness of breath or wheezing) Qty: 18 RF: 6 tamsulosin 0.4 mg capsule 0.4 mg PO DINNER RF: 0 levothyroxine 75 mcg tablet 75 mcg PO DAILY RF: 0 Nephro-Baltazar 0.8 mg tablet 1 tab PO DAILY RF: 0 Xifaxan 550 mg Tablet 550 mg PO BID RF: 0 furosemide 40 mg Tablet 40 mg PO DAILY Qty: 30 RF: 0 doxycycline hyclate 100 mg tablet 100 mg PO BID Qty: 60 RF: 0 ferrous sulfate 325 mg (65 mg iron) Tablet 325 mg PO QODAY Qty: 0 RF: 0 carvedilol [Coreg] 6.25 mg tablet 6.25 mg PO BID RF: 0 levocarnitine [Carnitor] 330 mg tablet 330 mg PO BID RF: 0 isosorbide mononitrate 30 mg tablet extended release 24 hr 30 mg PO DAILY Qty: 90 RF: 3 Changed warfarin 1 mg tablet 4 mg PO .COMPLEX Qty: 0 RF: 0 Referrals / Follow Up: Vinny Atkinson MD [Primary Care Provider] - 04/07/22 (Patient to follow-up with Dr. Atkinson for INR on 04/07/2022 prior to resumption of Coumadin) Disposition Disposition (needs filled in before D/C Order can be placed): Home, Self Care Charges/Coding Visit Charges Inpatient E&M: 70837 Disch Hosp
[2022-04-06 09:15] VITALS: BP 127/50; PULSE 70; RESP 18; TEMP 36.8; O2SAT 98
[2022-04-06] MEDS: levETIRAcetam 500 MG Tablet PO (09:25)
[2022-04-06] MEDS: Doxycycline 100 MG CAPSULE PO (09:25)
[2022-04-06] MEDS: Carvedilol 6.25 MG Tablet PO (09:25)
[2022-04-06] MEDS: Folic Acid/Vitamin B Comp W-C 1 Capsule 1 CAP PO (09:25)
[2022-04-06] MEDS: Pantoprazole Sodium 40 MG Tablet PO (09:25)
[2022-04-06] MEDS: Furosemide 40 MG Tablet PO (09:25)
[2022-04-06] MEDS: Isosorbide Mononitrate 30 MG Tablet PO (09:25)
[2022-04-06] MEDS: rifAXIMin 550 MG Tablet PO (09:26)
[2022-04-06] MEDS: Fluconazole 100 MG Tablet 200 MG PO (09:26)
[2022-04-06] MEDS: LEVOCARNITINE 330 MG TABLET PO (09:26)
--- NOTE | 2022-04-06 11:21 | CASEMGMT ---
This RN CM to room and pt states no concerns with going home at time of discharge. Pt voices no further questions/concerns/needs. [place] RN CM
[2022-04-06 14:15] VITALS: BP 103/41; PULSE 70; RESP 16; TEMP 36.4; O2SAT 98
== END 2022-04-06 15:07 | disposition home or self-care (01) | DRG 150 ==
LOC: ED 06:37 → PCU 07:32
PROVIDERS: Admitting Provider Internal Medicine; Emergency Provider Emergency Medicine; PCP Family Medicine; Visit Provider Internal Medicine
DX: R04.0 Epistaxis (principal); N18.6 End stage renal disease; I12.0 Hypertensive chronic kidney disease with stage 5 chronic kidney disease or end stage renal disease; D68.32 Hemorrhagic disorder due to extrinsic circulating 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; D62 Acute posthemorrhagic anemia; I42.8 Other cardiomyopathies; I48.92 Unspecified atrial flutter; K92.1 Melena; D63.8 Anemia in other chronic diseases classified elsewhere; Z99.2 Dependence on renal dialysis; I48.0 Paroxysmal atrial fibrillation; K74.60 Unspecified cirrhosis of liver; D69.59 Other secondary thrombocytopenia; I25.10 Atherosclerotic heart disease of native coronary artery without angina pectoris; E78.00 Pure hypercholesterolemia, unspecified; K21.9 Gastro-esophageal reflux disease without esophagitis; E03.9 Hypothyroidism, unspecified; N40.0 Benign prostatic hyperplasia without lower urinary tract symptoms; I25.2 Old myocardial infarction; T45.515A Adverse effect of 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, initial encounter; Z95.2 Presence of prosthetic heart valve; Z95.810 Presence of automatic (implantable) cardiac defibrillator; Z79.01 Long term (current) use of 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; Z79.899 Other long term (current) drug therapy; Z86.718 Personal history of other venous thrombosis and embolism; Z86.79 Personal history of other diseases of the circulatory system; Z86.73 Personal history of transient ischemic attack (TIA), and cerebral infarction without residual deficits; Z86.16 Personal history of COVID-19; Z86.74 Personal history of sudden cardiac arrest
CPT/HCPCS: 36415; 80048; 82274; 83735; 84100; 85014; 85018; 85025; 85610; 86850; 86900; 86901; 86920; 86922; 90937; 99283; J7030; P9016; A4216; G0257

== ENCOUNTER 2022-04-08 05:41 | Emergency (ER) | payer MEDICARE, OTHER, SELFPAY ==
[2022-04-08 05:42] VITALS: BP 109/47; PULSE 84; RESP 20; TEMP 36.6; O2SAT 94; BMI 24.1
--- NOTE | 2022-04-08 05:49 | EDS_ITS ---
HPI HPI - URI History of Present Illness Chief Complaint: Nosebleed Detail of Chief Complaint: Left-sided. Informant: patient and spouse/S.O. Onset/Context/Timing Onset: Hours Context: Gradual Onset Timing: Continuous Current Severity: Mild Maximum Severity: Mild Narrative Narrative: 72-year-old male extensive past medical history of CAD, end-stage renal disease on dialysis, anemia, prior mechanical heart valve for which she is on Coumadin. Patient had nosebleed earlier this week and he was admitted to hospital because of that and rectal bleeding with INR 4.9. He was seen by ear nose and throat Dr. Remington Riley. Patient had a cauterized and was discharged home. Said he was doing well and he started bleeding last night on Sunday night around 6 PM. Prior similar symptoms: Yes Recent Illness/Hospitalization: Yes ROS ROS ED ROS Narrative Denies. Review of Systems ROS Unobtainable: Denies due to encephalopathy Constitutional Constitutional ED: Denies fever(s) Eyes Eyes: Denies change in vision ENT ENT ED: Denies ear pain Cardiovascular Cardiovascular: Denies chest pain Respiratory/Chest Respiratory/Chest: Denies dyspnea Gastrointestinal Gastrointestinal: Denies abdominal pain Genitourinary Genitourinary ED: Denies dysuria Musculoskeletal Musculoskeletal: Denies myalgias Integumentary Denies rash Neurologic Neurologic: Denies headache(s) Psychiatric Psychiatric: Denies depression Endocrine Endocrinology: Denies polyuria Hematologic/Lymphatic Hematologic/Lymphatic: Denies easy bruising Allergic/Immunologic Allergic/Immunologic ED: Denies urticaria PFSH PFSH Medical History Abnormal results of thyroid function studies Airway intubation performed without difficulty Anemia in chronic kidney disease Atrial flutter Bacterial endocarditis Benign essential hypertension Biventricular cardiac pacemaker in situ (~05/26/16) CAD (coronary artery disease) Cardiomyopathy in disease classified elsewhere Cardiopulmonary arrest with successful resuscitation 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, stage III (moderate) Chronic renal insufficiency CKD stage G5/A1, GFR <15 and albumin creatinine ratio <30 mg/g Coagulopathy COVID-19 Diffuse large b-cell lymphoma, extranodal and solid organ sites Dyspnea Encounter for long-term (current) use of high-risk medication Endocarditis due to Staphylococcus GI bleed Gout History of diffuse large B-cell lymphoma History of DVT (deep vein thrombosis) History of non-Hodgkin's lymphoma History of pacemaker History of rheumatic fever as a child Hyperthyroidism Hypothyroidism (acquired) Infectious endocarditis Iron deficiency prison (current) use of 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 MRSA (methicillin resistant Staphylococcus aureus) infection Non-rheumatic mitral regurgitation Non-rheumatic mitral valve stenosis Non-ST elevation (NSTEMI) myocardial infarction MIA (obstructive sleep apnea) Paroxysmal ventricular tachycardia Pure hypercholesterolemia Rheumatic aortic stenosis Rheumatic mitral insufficiency Sepsis TIA (transient ischemic attack) (~11/19/15) Home Medications isosorbide mononitrate 30 mg tablet,extended release 24 hr 30 mg PO DAILY #90 tab 04/25/21 [Rx Last Taken 01/09/22] tamsulosin 0.4 mg PO DINNER 05/19/21 [History Last Taken 01/09/22] levothyroxine 75 mcg PO DAILY 08/24/21 [History Last Taken 01/10/22] fluconazole 200 mg tablet 200 mg PO DAILY tab 10/31/21 [History Last Taken 01/09/22] ondansetron HCl 4 mg tablet 4 mg PO Q6H PRN 10/31/21 [History Last Taken 01/10/22 04:15] Nephro-Baltazar 1 tab PO DAILY 01/10/22 [History Last Taken 01/09/22] Xifaxan 550 mg PO BID 01/10/22 [History Last Taken 01/09/22] doxycycline hyclate 100 mg PO BID #60 tab 01/12/22 [Rx Last Taken Unknown] ferrous sulfate 325 mg PO QODAY #0 tab 01/12/22 [Rx Last Taken 01/09/22] furosemide 40 mg PO DAILY #30 tab 01/12/22 [Rx Last Taken Unknown] albuterol sulfate 90 mcg/actuation aerosol inhaler 2 puff INHALATION Q4H PRN #18 g 01/26/22 [Rx Last Taken Unknown] alprazolam 1 mg tablet 0.5 mg PO QHS tab 02/01/22 [History Last Taken Unknown] levetiracetam 500 mg tablet 500 mg PO BID tab 02/01/22 [History Last Taken Unknown] pantoprazole 40 mg tablet,delayed release 40 mg PO DAILY tab 02/01/22 [History Last Taken Unknown] carvedilol [Coreg] 6.25 mg PO BID 04/04/22 [History Last Taken Unknown] oxymetazoline [Nasal [place] (oxymetazoline)] 1 spray NASAL TID #30 ml 04/06/22 [Rx Last Taken Unknown] warfarin 4 mg PO .COMPLEX #0 tab 04/06/22 [Rx Last Taken Unknown] levocarnitine 330 mg tablet 330 mg PO BID #60 tab 04/07/22 [Rx Last Taken Unknown] amoxicillin 500 mg PO TID 3 Days #9 cap 04/08/22 [Rx Last Taken Unknown] Allergy/AdvReac Type Severity Reaction Status Date / Time No Known Allergies Allergy Verified 02/01/22 08:47 Family History Father CAD (coronary artery disease) CABG Brother CAD (coronary artery disease) CABG Mother Diabetes Sister Breast cancer Diabetes Sister Cancer breast Diabetes Surgical History dual chamber pacemaker implantation (~10/2010) History of aortic valve replacement (~08/2003) History of appendectomy History of atrioventricular chiquita ablation History of cholecystectomy History of evacuation of hematoma History of heart valve replacement with mechanical valve History of heart valve replacement with mechanical valve History of mechanical aortic valve replacement (~1986) History of mitral valve repair (~08/2003) Social History household members: spouse housing: house current occupational status: retired current occupational exposures/hazards: No history of recent travel: No Smoking Status: Never smoker alcohol intake: never substance use type: does not use caffeine: No what type of physical activity do you participate in: weight training and other details: Nustep frequency: 3-4 times per week duration: 45-60 minutes/day seatbelt use: always do you feel safe at home: Yes EXAM Physical Exam Narrative Exam Narrative: 72-year-old male no acute distress. Vital signs stable afebrile. H EENT exam his cottonball stuffed in his left nose and soaked with blood. Lungs are clear. Heart regular rhythm. 4/6 stock ejection murmur. Abdomen soft nontender. Moving all 4 extremities. Nontender no edema. Neurologically is awake alert. Currently the right naris has no blood or active bleeding. The left naris has blood in the anterior proximal axis aspect of his nose with a area that has oozing of blood about 6:00 on the floor of his nose. No significant clots. Posterior pharynx is unremarkable without blood. Const Vital Signs: 04/08/22 05:42 Temperature 97.9 F Temperature Source Temporal Pulse Rate 84 Respiratory Rate 20 H Blood Pressure 109/47 L Blood Pressure Mean 67 Pulse Ox 94 Oxygen Delivery Method Room Air Positive well nourished and well developed; Negative for obese, cachectic or contractures General Appearance ED: well developed and NAD; Negative for cachectic, contractures, cyanotic, diaphoretic or pallor Nutritional Appearance: Negative for cachectic or obese HEENT Reports moist mucous membranes normocephalic and atraumatic External Ear: external ears normal Eyes PERRL and EOMs intact bilaterally General Eye ED: Negative for pale conjunctiva or scleral icterus Neck no lymphadenopathy, supple, no meningeal signs and no JVD General: Negative for anterior neck swelling or lymphadenopathy Resp normal respiratory effort and clear to auscultation bilaterally Auscultation: Negative for rales, rhonchi or wheezes Cardio S1 normal heart sound, S2 normal heart sound and no murmurs Cardio Narrative: 4-6 systolic ejection murmur. Rate: regular rate Rhythm: regular rhythm GI non-tender, non-distended and no masses Inspection: Negative for abdominal distention Auscultation: normoactive bowel sounds Palpation: soft; Negative for tender or guarding Back/Spine no CVA tenderness and normal ROM General Back: Negative for CVA tenderness Cervical Spine: Negative for cervical spine tenderness Thoracic Spine / Upper Back: Negative for thoracic spinal tenderness Extremity normal to inspection and full ROM General Extremety ED: Negative for cyanosis or tenderness General Extremity: Negative for cyanosis Neuro oriented x3 Sensorium / Orientation: alert, oriented to person, oriented to place and oriented to time; Negative for orientation impaired, lethargic or stuporous Motor Exam: strength 5/5 throughout Psych mental status grossly normal Mood & Affect: Negative for depressed or tearful Skin General Skin Exam: Negative for jaundice or pallor Lesions: no lesions Rashes: no rashes MDM MDM MDM Narrative Medical decision making narrative: 72-year-old male on Coumadin with a left anterior nosebleed. Prior history of similar. Patient just had his INR checked yesterday it was 3.3. They like keeping his INR between 2-1/2 and 3.5 due to his mechanical valve per his . Procedures Other Procedures Procedure(s): Left anterior nosebleed. Cottonball soaked with Afrin were placed in both sides of his nose. Bleeding stopped left anterior Merocel nasal pack was placed. Patient tolerated procedure well. Discharge Plan Triage Chief Complaint: Nosebleed ED Provider: Shashank Hernandez Dx/Rx/DC Orders Clinical Impression: Epistaxis, Chronic anticoagulation, History of epistaxis, History of heart valve replacement with mechanical valve Instructions: ED Epistaxis (Adult) Prescriptions: New amoxicillin 500 mg capsule 500 mg PO TID 3 Days Qty: 9 RF: 0 No Action alprazolam [Xanax] 1 mg tablet 0.5 mg PO QHS RF: 0 pantoprazole 40 mg tablet,delayed release (DR/EC) 40 mg PO DAILY RF: 0 fluconazole 200 mg tablet 200 mg PO DAILY RF: 0 ondansetron HCl 4 mg tablet 4 mg PO Q6H PRN (Reason: Nausea) RF: 0 levetiracetam [Keppra] 500 mg tablet 500 mg PO BID RF: 0 albuterol sulfate [Ventolin HFA] 90 mcg/actuation HFA aerosol inhaler 2 puff inhalation Q4H PRN (Reason: shortness of breath or wheezing) Qty: 18 RF: 6 tamsulosin 0.4 mg capsule 0.4 mg PO DINNER RF: 0 levothyroxine 75 mcg tablet 75 mcg PO DAILY RF: 0 Nephro-Baltazar 0.8 mg tablet 1 tab PO DAILY RF: 0 Xifaxan 550 mg Tablet 550 mg PO BID RF: 0 furosemide 40 mg Tablet 40 mg PO DAILY Qty: 30 RF: 0 doxycycline hyclate 100 mg tablet 100 mg PO BID Qty: 60 RF: 0 ferrous sulfate 325 mg (65 mg iron) Tablet 325 mg PO QODAY Qty: 0 RF: 0 carvedilol [Coreg] 6.25 mg tablet 6.25 mg PO BID RF: 0 oxymetazoline [Nasal [place] (oxymetazoline)] 0.05 % [place],Non-Aerosol 1 spray NASAL TID Qty: 30 RF: 0 warfarin 1 mg tablet 4 mg PO .COMPLEX Qty: 0 RF: 0 isosorbide mononitrate 30 mg tablet extended release 24 hr 30 mg PO DAILY Qty: 90 RF: 3 levocarnitine [Carnitor] 330 mg tablet 330 mg PO BID Qty: 60 RF: 0 Primary Care Provider: Vinny Atkinson Referrals: Rolo Mireles MD [STAFF PHYSICIAN] - 3-5 Days Vinny Atkinson MD [Primary Care Provider] - Activity Restrictions/Additional Instructions: If rebleeds pinch the anterior nose for 30 minutes straight. If unable to get the bleeding's stop to return to the emergency department. Follow-up with your ear nose and throat doctor to have the packing removed on Sunday. Disposition Disposition: Home, Self Care
[2022-04-08 06:33] VITALS: PULSE 96; O2SAT 96
--- NOTE | 2022-04-08 06:34 | NURSING ---
ambulated patient in hallway. No nose bleeding noted.
== END 2022-04-08 06:34 | disposition home or self-care (01) ==
PROVIDERS: Emergency Provider Emergency Medicine; PCP Family Medicine; Visit Provider Emergency Medicine
DX: R04.0 Epistaxis (principal); Z99.2 Dependence on renal dialysis; I12.0 Hypertensive chronic kidney disease with stage 5 chronic kidney disease or end stage renal disease; N18.6 End stage renal disease; I25.10 Atherosclerotic heart disease of native coronary artery without angina pectoris; I25.2 Old myocardial infarction; E78.00 Pure hypercholesterolemia, unspecified; E03.9 Hypothyroidism, unspecified; Z95.4 Presence of other heart-valve replacement; Z79.01 Long term (current) use of 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; Z79.899 Other long term (current) drug therapy; Z86.73 Personal history of transient ischemic attack (TIA), and cerebral infarction without residual deficits; Z86.16 Personal history of COVID-19; Z86.74 Personal history of sudden cardiac arrest
CPT/HCPCS: 30901; 99282

== ENCOUNTER 2022-04-14 10:02 | Outpatient (RCR) | payer MEDICARE, OTHER, SELFPAY ==
[2022-03-19 03:35] VITALS: BMI 28.8
[2022-03-24 13:45] LABS: International Normalized Ratio 3.7; Prothrombin Time (Protime)PT. 36.4 SECONDS (11.7-14.9)
[2022-04-03 08:48] LABS: Prothrombin Time (Protime)PT. 41.2 SECONDS (11.7-14.9)
[2022-04-03 08:49] LABS: International Normalized Ratio 4.3
[2022-04-07 11:46] LABS: International Normalized Ratio 3.3; Prothrombin Time (Protime)PT. 33.3 SECONDS (11.7-14.9)
[2022-04-10 13:14] LABS: International Normalized Ratio 1.9; Prothrombin Time (Protime)PT. 21.7 SECONDS (11.7-14.9)
[2022-04-12 10:52] LABS: International Normalized Ratio 1.8; Prothrombin Time (Protime)PT. 20.9 SECONDS (11.7-14.9)
[2022-04-14 11:01] LABS: International Normalized Ratio 2.1; Prothrombin Time (Protime)PT. 23.1 SECONDS (11.7-14.9)
== END 2022-04-14 18:00 | disposition home or self-care (01) ==
LOC: LAB 10:02
PROVIDERS: Family Provider Family Medicine; PCP Family Medicine; Referring Provider Internal Medicine Cardiovascular Disease; Visit Provider Internal Medicine Cardiovascular Disease
DX: Z95.2 Presence of prosthetic heart valve (principal); Z79.01 Long term (current) use of 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
CPT/HCPCS: 36415; 85610

== ENCOUNTER 2022-05-17 09:48 | Outpatient (RCR) | payer MEDICARE, OTHER, SELFPAY ==
[2022-04-18 20:58] VITALS: BMI 28.8
[2022-04-19 09:41] LABS: International Normalized Ratio 3.6; Prothrombin Time (Protime)PT. 35.7 SECONDS (11.7-14.9)
[2022-04-26 10:46] LABS: Prothrombin Time (Protime)PT. 42.6 SECONDS (11.7-14.9)
[2022-04-26 18:46] LABS: International Normalized Ratio 4.5
[2022-05-01 11:26] LABS: Albumin 3.6 g/dL (2.9-4.4); Alpha-1-Globulins 0.4 g/dL (0.0-0.4); Alpha-2-Globulins 0.6 g/dL (0.4-1.0); Free Lambda Light Chains 98.8 mg/L (5.7-26.3); Gamma Globulin 1.6 g/dL (0.4-1.8); Immunoglobulin A 106 mg/dL (61-437); Immunoglobulin G 1296 mg/dL (603-1613); Immunoglobulin M 423 mg/dL (15-143); PROEL- TOTAL PROTEIN 7.1 g/dL (6.0-8.5)
[2022-05-01 19:29] LABS: Immunofixation Urine Comment: (.)
[2022-05-03 10:38] LABS: International Normalized Ratio 2.9; Prothrombin Time (Protime)PT. 29.6 SECONDS (11.7-14.9)
[2022-05-10 10:21] LABS: International Normalized Ratio 2.7; Prothrombin Time (Protime)PT. 28.1 SECONDS (11.7-14.9)
[2022-05-17 10:40] LABS: International Normalized Ratio 2.6; Prothrombin Time (Protime)PT. 27.7 SECONDS (11.7-14.9)
== END 2022-05-17 23:59 | disposition home or self-care (01) ==
LOC: LAB 09:48
PROVIDERS: Psychiatry & Neurology Neurology; Family Provider Family Medicine; PCP Family Medicine; Referring Provider Internal Medicine Cardiovascular Disease; Visit Provider Internal Medicine Cardiovascular Disease
DX: Z95.2 Presence of prosthetic heart valve (principal); Z79.01 Long term (current) use of 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; E72.20 Disorder of urea cycle metabolism, unspecified; G62.9 Polyneuropathy, unspecified
CPT/HCPCS: 36415; 82140; 82784; 83883; 84165; 85610; 86334; 86335

== ENCOUNTER 2022-06-14 10:17 | Outpatient (RCR) | payer MEDICARE, OTHER, SELFPAY ==
[2022-05-19 07:22] VITALS: BMI 28.8
[2022-05-31 11:47] LABS: International Normalized Ratio 2.2; Prothrombin Time (Protime)PT. 24.1 SECONDS (11.7-14.9)
[2022-06-14 11:25] LABS: International Normalized Ratio 1.7; Prothrombin Time (Protime)PT. 19.9 SECONDS (11.7-14.9)
== END 2022-06-18 02:49 | disposition home or self-care (01) ==
LOC: LAB 10:17
PROVIDERS: Family Provider Family Medicine; PCP Family Medicine; Referring Provider Internal Medicine Cardiovascular Disease; Visit Provider Internal Medicine Cardiovascular Disease
DX: Z95.2 Presence of prosthetic heart valve (principal); Z79.01 Long term (current) use of 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
CPT/HCPCS: 36415; 85610

== ENCOUNTER 2022-07-05 09:26 | Outpatient (RCR) | payer MEDICARE, OTHER, SELFPAY ==
[2022-06-18 02:49] VITALS: BMI 28.8
[2022-06-21 10:22] LABS: International Normalized Ratio 2.3; Prothrombin Time (Protime)PT. 24.8 SECONDS (11.7-14.9)
[2022-07-05 09:49] LABS: Prothrombin Time (Protime)PT. 30.7 SECONDS (11.7-14.9)
== END 2022-07-05 18:00 | disposition home or self-care (01) ==
LOC: LAB 09:26
PROVIDERS: Family Provider Family Medicine; PCP Family Medicine; Referring Provider Internal Medicine Cardiovascular Disease; Visit Provider Internal Medicine Cardiovascular Disease
DX: Z95.2 Presence of prosthetic heart valve (principal); Z79.01 Long term (current) use of 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
CPT/HCPCS: 36415; 85610

== ENCOUNTER 2022-07-15 11:45 | Inpatient (IN) | payer MEDICARE, OTHER, SELFPAY ==
[2022-07-15] VITALS (17 sets, daily range): BP systolic 98–124; BP diastolic 33–83; PULSE 70–90; RESP 16–24; TEMP 36.3–37.1; O2SAT 95–100; BMI 27.1; BMI 24.7
--- NOTE | 2022-07-15 11:55 | ED.RN ---
DR GREEN MADE AWARE OF CONDITION OF PT
--- NOTE | 2022-07-15 12:13 | ED.RN ---
THIS RN SPOKE WITH DIALYSIS NURSE YFN. PT ARRIVED TO DIALYSIS THIS MORNING AND WAS LETHARGIC AT TIME BUT ANSWERING QUESTIONS. BY THE END OF TREATMENT BP DROPPED 60/40 AND PT NOT TALKING FOLLOWING COMMANDS APPROX 10:50 AM. PER - PT HAS C/O WEAKNESS AND DIZZINESS THROUGHOUT THIS WEAK. PT OPENING EYES BUT NOT FOLLOWING COMMANDS CURRENTLY.
--- NOTE | 2022-07-15 12:16 | EKG12_ITS ---
Test Reason : ALT LOC Blood Pressure : / mmHG Vent. Rate : 070 BPM Atrial Rate : 075 BPM P-R Int : 000 ms QRS Dur : 172 ms QT Int : 542 ms P-R-T Axes : 000 229 132 degrees QTc Int : 585 ms Ventricular-paced rhythm Biventricular pacemaker detected Abnormal ECG Confirmed by LILIBETH NIX, YANIRA ([id number]), book or script editor TRINA VIVAR ([id number]) on 07/18/2022 7:51:45 AM Referred By: ERICA Confirmed By:YANIRA MCELROY MD
--- NOTE | 2022-07-15 12:17 | ED.RN ---
GIO COULTER CAN BE REACHED AT [phone]. PER DR MALDONADO NO STROKE ALERT CALLED AT THIS TIME.
--- NOTE | 2022-07-15 12:17 | EX.ED.DYSGE1 ---
HPI History of Present Illness Chief Complaint: Alt LOC Narrative Narrative: This is a 72-year-old male presenting from dialysis with generalized weakness and altered mentation. His gives the history. She states that he was feeling generally weak this morning before going dialysis. He gets his dialysis on Sunday, , Sunday. She states that typically after dialysis he does not do much for the rest of the day and feels generally weak. The patient today seems to be a little bit weaker per the he is not really communicating with her very well but he is awake. He has a history of visual disorder but is not having seizures. Patient's notes that his blood pressure's were low at dialysis today, and she states they did not discontinue dialysis even though his pressures were low. She states that the blood pressures were as low as 84/35. She does recall that his systolic pressures usually about 115 and that they try to keep his blood pressure low because of his prosthetic heart valve which has been replaced twice. He is on Coumadin and she states that he has been having trouble getting it to a therapeutic range. Patient has not complained of chest pain or shortness of breath. Has not had a fever. He has not had nausea or vomiting. The patient's does state that he looks a little bit more jaundiced than usual. He has a history of liver failure and sees a specialist at [facility]. He is on lactulose for a very long time but his states now he is on Xifaxan. There is been no medication changes. She states that the patient has had a UTI in the past and he still makes urine 3 times a day. He has not complained of dysuria or urinary frequency. [facility] Medical History Abnormal results of thyroid function studies Airway intubation performed without difficulty Anemia in chronic kidney disease Atrial flutter Bacterial endocarditis Benign essential hypertension Biventricular cardiac pacemaker in situ (~05/26/16) CAD (coronary artery disease) Cardiomyopathy in disease classified elsewhere Cardiopulmonary arrest with successful resuscitation 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, stage III (moderate) Chronic renal insufficiency CKD stage G5/A1, GFR <15 and albumin creatinine ratio <30 mg/g Coagulopathy COVID-19 Diffuse large b-cell lymphoma, extranodal and solid organ sites Dyspnea Encounter for long-term (current) use of high-risk medication Endocarditis due to Staphylococcus GI bleed Gout History of diffuse large B-cell lymphoma History of DVT (deep vein thrombosis) History of non-Hodgkin's lymphoma History of pacemaker History of rheumatic fever as a child Hyperthyroidism Hypothyroidism (acquired) Infectious endocarditis 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 MRSA (methicillin resistant Staphylococcus aureus) infection Non-rheumatic mitral regurgitation Non-rheumatic mitral valve stenosis Non-ST elevation (NSTEMI) myocardial infarction MIA (obstructive sleep apnea) Paroxysmal ventricular tachycardia Pure hypercholesterolemia Rheumatic aortic stenosis Rheumatic mitral insufficiency Sepsis TIA (transient ischemic attack) (~11/19/15) Home Medications tamsulosin 0.4 mg capsule 0.4 mg PO DINNER prostate 05/19/21 [History Last Taken 01/09/22] levothyroxine 75 mcg tablet 75 mcg PO DAILY thyroid 08/24/21 [History Last Taken 01/10/22] fluconazole 200 mg tablet 200 mg PO DAILY fungal infection 10/31/21 [History Last Taken 01/09/22] ondansetron HCl 4 mg tablet 4 mg PO Q6H PRN Nausea 10/31/21 [History Last Taken 01/10/22 04:15] rifaximin 550 mg tablet (Xifaxan) 550 mg PO BID diarrhea 01/10/22 [History Last Taken 01/09/22] vitamin B complex-vitamin C-folic acid 0.8 mg tablet (Nephro-Baltazar) 1 tab PO DAILY vitamin 01/10/22 [History Last Taken 01/09/22] doxycycline hyclate 100 mg tablet 100 mg PO BID #60 tabs 01/12/22 [Rx Last Taken Unknown] ferrous sulfate 325 mg (65 mg iron) tablet 325 mg PO QODAY SUPPLEMENT #0 tabs 01/12/22 [Rx Last Taken 01/09/22] albuterol sulfate 90 mcg/actuation aerosol inhaler (Ventolin HFA) 2 puff inhalation Q4H PRN shortness of breath or wheezing #18 grams 01/26/22 [Rx Last Taken Unknown] alprazolam 1 mg tablet (Xanax) 0.5 mg PO QHS Sleep 02/01/22 [History Last Taken Unknown] pantoprazole 40 mg tablet,delayed release 40 mg PO DAILY GERD 02/01/22 [History Last Taken Unknown] carvedilol 6.25 mg tablet (Coreg) 6.25 mg PO BID 04/04/22 [History Last Taken Unknown] levetiracetam 500 mg tablet (Keppra) 500 mg PO BID #60 tabs 04/24/22 [Rx Last Taken Unknown] levocarnitine 330 mg tablet (Carnitor) 330 mg PO BID #60 tabs 04/24/22 [Rx Last Taken Unknown] sevelamer HCl 800 mg tablet (Renagel) 1,600 mg PO TID 06/06/22 [History Last Taken Unknown] isosorbide mononitrate 30 mg tablet,extended release 24 hr 30 mg PO DAILY 07/15/22 [History Last Taken Unknown] warfarin 1 mg tablet 6 mg PO WETH blood thinner 07/15/22 [History Last Taken Unknown] warfarin 6 mg tablet 3 mg PO SUMOTUFRSA 07/15/22 [History Last Taken Unknown] Allergy/AdvReac Type Severity Reaction Status Date / Time No Known Allergies Allergy Verified 07/15/22 11:51 Family History Father CAD (coronary artery disease) CABG Brother CAD (coronary artery disease) CABG Mother Diabetes Sister Breast cancer Diabetes Sister Cancer breast Diabetes Surgical History dual chamber pacemaker implantation (~10/2010) History of aortic valve replacement (~08/2003) History of appendectomy History of atrioventricular chiquita ablation History of cholecystectomy History of evacuation of hematoma History of heart valve replacement with mechanical valve History of heart valve replacement with mechanical valve History of mechanical aortic valve replacement (~1986) History of mitral valve repair (~08/2003) Social History household members: spouse housing: house current occupational status: retired current occupational exposures/hazards: No history of recent travel: No Smoking Status: Never smoker alcohol intake: never substance use type: does not use caffeine: No what type of physical activity do you participate in: weight training and other details: Nustep frequency: 3-4 times per week duration: 45-60 minutes/day seatbelt use: always do you feel safe at home: Yes ROS ROS ED Review of Systems ROS Unobtainable: due to mental status EXAM Physical Exam Const Vital Signs: 07/15/22 11:47 07/15/22 12:18 07/15/22 13:21 Temperature 98.3 F Temperature Source Oral Pulse Rate 76 72 Respiratory Rate 18 16 Blood Pressure 104/50 L 106/55 L Blood Pressure Mean 68 72 Blood Pressure Source Blood Pressure Position Blood Pressure Location Pulse Ox 95 98 99 Oxygen Delivery Method Room Air Room Air Room Air 07/15/22 14:19 07/15/22 15:03 07/15/22 15:40 Temperature 98 F Temperature Source Oral Pulse Rate 72 71 70 Respiratory Rate 17 18 20 H Blood Pressure 113/50 L 98/47 L 105/36 L Blood Pressure Mean 71 64 59 Blood Pressure Source Blood Pressure Position Blood Pressure Location Pulse Ox 99 98 99 Oxygen Delivery Method Room Air Room Air Room Air 07/15/22 15:46 07/15/22 16:01 07/15/22 16:00 Temperature 98 F 97.3 F L 97.9 F Temperature Source Oral Oral Oral Pulse Rate 70 71 70 Respiratory Rate 18 17 17 Blood Pressure 109/43 L 113/39 L 110/40 L Blood Pressure Mean 65 63 63 Blood Pressure Source Monitor Monitor Monitor Blood Pressure Position Semi-Fowlers Semi-Fowlers Semi-Fowlers Blood Pressure Location Left Arm Left Arm Left Arm Pulse Ox 99 100 100 Oxygen Delivery Method Room Air Room Air Room Air 07/15/22 17:39 07/15/22 17:54 07/15/22 18:17 Temperature 98.6 F 98.7 F Temperature Source Oral Oral Pulse Rate 70 71 70 Respiratory Rate 24 H 22 H 18 Blood Pressure 112/45 L 106/33 L Blood Pressure Mean 67 57 Blood Pressure Source Monitor Monitor Blood Pressure Position Semi-Fowlers Semi-Fowlers Blood Pressure Location Left Arm Left Arm Pulse Ox 99 99 97 Oxygen Delivery Method Room Air Room Air Room Air 07/15/22 18:30 07/15/22 17:41 07/15/22 17:41 Temperature 98.3 F 98.3 F Temperature Source Oral Oral Pulse Rate 74 70 85 Respiratory Rate 18 24 H 18 Blood Pressure 113/59 L 114/83 H Blood Pressure Mean 77 93 Blood Pressure Source Monitor Monitor Blood Pressure Position Semi-Fowlers Semi-Fowlers Blood Pressure Location Left Arm Left Arm Pulse Ox 99 99 100 Oxygen Delivery Method Room Air Room Air General Appearance ED: NAD; Negative for pallor HEENT Reports dry mucous membranes Negative for trauma Mouth ED: Yes dry mucous membranes Mouth: dry mucous membranes Eyes PERRL and EOMs intact bilaterally General Eye ED: Yes pale conjunctiva and scleral icterus Neck no lymphadenopathy Resp normal respiratory effort and clear to auscultation bilaterally Auscultation: Negative for rales, rhonchi or wheezes Cardio regular rate and regular rhythm GI normal to inspection, nondistended, normoactive bowel sounds Palpation: soft Neuro Neuro Narrative: Confused. Sensorium / Orientation: alert Motor Exam: general weakness Skin General Skin Exam: jaundice; Negative for pallor MDM MDM MDM Narrative Medical decision making narrative: Patient presenting with generalized weakness but did get full dialysis today. Apparently he was weak beforehand. He is not had any fever, chills, body aches. His blood pressures were a little bit low at dialysis.. This is a new problem for him. I obtained lab work and his CBC showed no leukocytosis but his hemoglobin was acutely down at 5.4. I presume this is likely due to blood loss anemia as the patient's INR was supratherapeutic at 5.9. The patient did not report any bloody stools and his and he states that they checked this pretty religiously because he has a history of GI bleed. They deny any melena. He is not having abdominal pain. He does have conjunctiva pallor on exam and does appear to be a slightly bit jaundiced. Renal function is expected for dialysis patient and is at baseline. Patient's alkaline phosphatase was elevated however his AST and ALT are normal. His direct bilirubin was elevated 0.37 his total bilirubin was 0.7. Ammonia near baseline at 46 and patient is treated for this. High-sensitivity troponin was 59. EKG on my interpretation shows a ventricular paced rhythm at 70 bpm without sign ischemic change. Chest x-ray shows no acute cardiopulmonary process on my interpretation the radiologist agree. CT brain negative for acute findings. At this point I think the patient is likely source generalized weakness and hypotension is likely blood loss. He was typed and screened and crossmatched for 2 units. Initially we discussed transfer to [facility] but after speaking with the hospitalist he was able to consult Dr. Zheng who will see the patient in the ER so he can stay at [facility]. Patient remained clinically stable here. I attempted to call the patient's to discuss the updated plan however she does not answer the phone. Patient was admitted in stabilized condition. Impression: 1. Blood loss anemia 2. GI bleed 3. Generalized weakness 4. Hypotension resolved 5. History of cirrhosis Lab Data Labs: Laboratory Results - last 24 hr 07/15/22 07/15/22 07/15/22 12:04 12:04 12:04 WBC 5.4 RBC 1.59 L Hgb 5.4 L* Hct 15.8 L MCV 99.4 H MCH 34.0 H MCHC 34.2 RDW Std Deviation 59.7 H RDW Coeff of Jennifer 16.9 H Plt Count 125 L MPV 9.4 Immature Gran % (Auto) 0.400 Neut % (Auto) 75.5 H Lymph % (Auto) 13.2 L Sibley % (Auto) 9.2 Eos % (Auto) 1.5 Baso % (Auto) 0.2 Absolute Neuts (auto) 4.1 Absolute Lymphs (auto) 0.72 L Nucleated RBC % 0 Diff Path Review May foll Platelet Estimate 5.4 Hypochromasia 2+ PT INR Sodium 138 Potassium 4.2 Chloride 99 Carbon Dioxide 35.0 H Anion Gap 4 L BUN 36 H Creatinine 3.06 H Estim Creat Clear Calc 20.10 Est GFR (MDRD) Af Amer 26 L Est GFR (MDRD) Non-Af 21 L BUN/Creatinine Ratio 11.8 Glucose 95 Calcium 8.5 Total Bilirubin 0.70 Direct Bilirubin 0.37 H AST 32 ALT 27 Alkaline Phosphatase 297 H Ammonia 46.0 H Troponin I High Sens 59 B-Natriuretic Peptide 277.9 H Total Protein 6.3 L Albumin 2.8 L Globulin 3.5 Lipase 277 Urine Color Urine Clarity Urine pH Ur Specific [place] Urine Protein Urine Glucose (UA) Urine Ketones Urine Occult Blood Urine Nitrite Urine Bilirubin Urine Urobilinogen Ur Leukocyte Esterase Urine RBC Urine WBC Ur Squamous Epith Cells Urine Bacteria Urine Mucus Blood Type Antibody Screen Crossmatch 07/15/22 07/15/22 07/15/22 12:04 13:35 13:55 WBC RBC Hgb Hct MCV MCH MCHC RDW Std Deviation RDW Coeff of Jennifer Plt Count MPV Immature Gran % (Auto) Neut % (Auto) Lymph % (Auto) Sibley % (Auto) Eos % (Auto) Baso % (Auto) Absolute Neuts (auto) Absolute Lymphs (auto) Nucleated RBC % Diff Path Review Platelet Estimate Hypochromasia PT 52.8 H INR 5.9 H* Sodium Potassium Chloride Carbon Dioxide Anion Gap BUN Creatinine Estim Creat Clear Calc Est GFR (MDRD) Af Amer Est GFR (MDRD) Non-Af BUN/Creatinine Ratio Glucose Calcium Total Bilirubin Direct Bilirubin AST ALT Alkaline Phosphatase Ammonia Troponin I High Sens B-Natriuretic Peptide Total Protein Albumin Globulin Lipase Urine Color Urine Clarity Urine pH Ur Specific [place] Urine Protein Urine Glucose (UA) Urine Ketones Urine Occult Blood Urine Nitrite Urine Bilirubin Urine Urobilinogen Ur Leukocyte Esterase Urine RBC Urine WBC Ur Squamous Epith Cells Urine Bacteria Urine Mucus Blood Type Cancelled A POSITIVE Antibody Screen Cancelled NEGATIVE Crossmatch See Detail See Detail 07/15/22 17:00 WBC RBC Hgb Hct MCV MCH MCHC RDW Std Deviation RDW Coeff of Jennifer Plt Count MPV Immature Gran % (Auto) Neut % (Auto) Lymph % (Auto) Sibley % (Auto) Eos % (Auto) Baso % (Auto) Absolute Neuts (auto) Absolute Lymphs (auto) Nucleated RBC % Diff Path Review Platelet Estimate Hypochromasia PT INR Sodium Potassium Chloride Carbon Dioxide Anion Gap BUN Creatinine Estim Creat Clear Calc Est GFR (MDRD) Af Amer Est GFR (MDRD) Non-Af BUN/Creatinine Ratio Glucose Calcium Total Bilirubin Direct Bilirubin AST ALT Alkaline Phosphatase Ammonia Troponin I High Sens B-Natriuretic Peptide Total Protein Albumin Globulin Lipase Urine Color Yellow Urine Clarity Clear Urine pH 8.0 Ur Specific [place] 1.010 Urine Protein 30 H Urine Glucose (UA) Normal Urine Ketones Negative Urine Occult Blood Negative Urine Nitrite Negative Urine Bilirubin 1 H Urine Urobilinogen Normal Ur Leukocyte Esterase 25 H Urine RBC 0 SEEN Urine WBC 0-5 SEEN Ur Squamous Epith Cells 0 SEEN Urine Bacteria 1+ Urine Mucus 0 SEEN Blood Type Antibody Screen Crossmatch Radiography Diagnostic Testing: Clinical Impression(s) from Imaging Studies Brain CT 07/15/22 12:19 IMPRESSION: Chronic involutional changes of the brain. No acute hemorrhage Electronically Signed: Garcia Price MD at 12:59 EDT , Chest X-Ray 07/15/22 12:24 IMPRESSION: No interval change Electronically Signed: Garcia Price MD at 12:52 EDT , Discharge Plan Disposition Disposition: Acute Care Hospital [facility] Discharge Date/Time: 07/15/22 19:30
--- NOTE | 2022-07-15 12:19 | CT_ITS ---
STUDY: CT BRAIN WITHOUT CONTRAST REASON FOR EXAM: Male, 72 years old. Altered mental status RADIATION DOSAGE (If Supplied By Facility): CTDIvol = ( 44.99 ) mGy, DLP = ( 796.11 ) mGycm TECHNIQUE: Transaxial CT imaging of the brain was performed without administration of intravenous contrast material. Individualized dose optimization techniques were used for this CT. COMPARISON: 08/25/2021 FINDINGS: Normal soft tissue structures. Normal calvarium. Normal size ventricles and extra-axial spaces for the patient''s age. Normal white matter tracts of the cerebral hemispheres. Normal basal ganglia and thalami. Normal brainstem. Normal cerebellum. There is no intracranial hemorrhage. There are no findings of an acute ischemic infarction. Normal visualized paranasal sinuses. CT/Brain/Head without Contrast IMPRESSION: Chronic involutional changes of the brain. No acute hemorrhage Electronically Signed: Garcia Price MD at 12:59 EDT ,
--- NOTE | 2022-07-15 12:24 | RAD_ITS ---
STUDY: X-RAY CHEST REASON FOR EXAM: Male, 72 years old. Chest pain TECHNIQUE: Single AP portable view of the chest. COMPARISON: 01/10/2022 FINDINGS: EKG leads overlie the chest. Stable appearance of a right subclavian pacemaker and right subclavian port. Lung chavez show no significant interval change with persistent left pleural effusion and left basilar atelectasis and opacification in the right lung bases findings are all likely chronic. Sternal cerclage wires and vascular clips are present from a prior sternotomy and coronary artery bypass graft procedure (CABG). Normal mediastinum and max. Normal visualized pulmonary arteries. There is atherosclerotic calcification of the aortic arch with tortuosity. There are diffuse degenerative changes of the visualized thoracic spine. Normal visualized ribs, clavicles, and shoulders. There is no demonstrated abnormality of the visualized soft tissue structures of the upper abdomen. RAD/Chest 1 View (Portable) IMPRESSION: No interval change Electronically Signed: Garcia Price MD at 12:52 EDT ,
[2022-07-15 12:59] LABS: Absolute Lymphocyte Count 0.72 X10^3/uL (0.83-4.51); Absolute Neutrophil Count 4.1 X10^3/uL (2.0-7.7); Basophil# 0.01 X10^3/uL; Basophil% 0.2 % (0-1); Eosinophil# 0.08 X10^3/uL; Eosinophils% 1.5 % (0-5); Hematocrit 15.8 % (40-54); Hemoglobin 5.4 g/dL (13.0-16.5); Lymphocyte # 0.72 X10^3/ul (0.83-4.51); Lymphocyte % 13.2 % (19-41); Mean Corp Hgb Conc 34.2 g/dL (32-36); Mean Corpuscular Volume 99.4 fL (80-94); Mean Platelet Vol. 9.4 fl (6.2-12.0); Monocyte% 9.2 % (0-10); NRBC Flagged by Analyzer 0 % (0-5); Neutrophil # 4.11 X10^3/uL (2.7-7.7); Neutrophil % 75.5 % (47-70); POSITIVE COUNT YES; Platelet Count 125 K/mm3 (150-450); RBC Distribution Width CV 16.9 % (11.6-14.6); RBC Distribution Width SD 59.7 fl (35.1-43.9); Red Blood Count 1.59 M/mm3 (4.6-6.2); White Blood Count 5.4 K/mm3 (4.4-11.0)
[2022-07-15 13:04] LABS: Differential Indicated SCAN CRITERIA MET
--- NOTE | 2022-07-15 13:05 | NURSING ---
call from lab, hgb 5.4 , dr. christian made aware.
[2022-07-15 13:08] LABS: International Normalized Ratio 5.9; Prothrombin Time (Protime)PT. 52.8 SECONDS (11.7-14.9)
[2022-07-15 13:10] LABS: AST(SGOT) 32 U/L (15-37); Alanine Aminotransfer ALT/SGPT 27 U/L (16-61); Albumin, Serum 2.8 g/dL (3.2-5.0); Alkaline Phosphatase 297 U/L (45-117); Anion Gap 4 (5-15); BUN 36 mg/dL (7-18); BUN/Creat Ratio 11.8 RATIO (10-20); Bilirubin, Direct 0.37 mg/dL (0.00-0.30); Calcium,Total 8.5 mg/dL (8.5-10.1); Chloride 99 mmol/L (98-107); Creatinine, Serum 3.06 mg/dL (0.70-1.30); EST Glomerular Filtration Rate 21 mL/min (>60); Est Glom Filt Rate - Afr Amer 26 mL/min (>60); Globulin 3.5 g/dL (2.2-4.2); Glucose 95 mg/dL (74-106); Lipase 277 U/L (73-393); Potassium 4.2 mmol/L (3.5-5.1); Protein, Total 6.3 g/dL (6.4-8.2); Sodium Level 138 mmol/L (136-145); Troponin-I HS 59 pg/mL (3.0-78.0)
[2022-07-15 13:22] LABS: BNP,B-Type NATRIURETIC PEPTIDE 277.9 pg/mL (0-100)
[2022-07-15 13:30] LABS: Hypochromasia 2+; Platelet Estimate 5.4 (ADEQ)
--- NOTE | 2022-07-15 13:45 | ED.RN ---
PER DR MALDONADO, DO NOT NEED TO STRAIGHT CATH PT FOR URINE.
--- NOTE | 2022-07-15 16:15 | NURSING ---
JASON MCKENZIE WITH [facility] TRANSFER LINE. PT IS ACCEPTED TO FACILITY BUT WILL NOT HAVE A BED TODAY
[2022-07-15 17:12] LABS: Mucous, Urine 0 SEEN /hpf (<or=2+); Red Blood Cells-Urine 0 SEEN /hpf (0-5); Squamous Epithelial Cells - UA 0 SEEN /hpf (0-5)
[2022-07-15 17:28] LABS: Color, Urine Yellow (Yellow); Glucose, Dipstick Normal (Normal); Ketone-Dipstick Negative (Negative); Leukocyte Esterase-Dipstick 25 /ul (Negative); Nitrite-Dipstick Negative (Negative); Occult Blood-Urine Negative /ul (Negative); Protein-Dipstick 30 mg/dl (Negative); Urine Clarity Clear (Clear); Urine Urobilinogen Normal (Normal)
[2022-07-15 17:39] LABS: Urine Bilirubin Dipstick 1 mg/dL (Negative)
[2022-07-15 17:43] LABS: Bacteria 1+ /hpf (None Seen); White Blood Cells 0-5 SEEN /hpf (0-5)
--- NOTE | 2022-07-15 19:41 | HP.PCM.HOS_ITS ---
HPI - General General Date of Admission: 07/15/22 Date of Service: 07/15/22 Chief Complaint: Weakness/confusion HPI Narrative CHRISTIAN RICHMOND, is a 72 M who presented to the emergency department [facility] on 07/15/2022 secondary to generalized weakness and altered mental status. His gave most of the history to the emergency department physician but she was gone upon my arrival and did not answer her phone. The patient is unfortunately unable to give much history but does give some. Evidently he was feeling generally weak prior to dialysis today. He typically gets dialysis on Sunday, , and Sunday. She did indicate that typically after dialysis he is weaker but felt that he was more weak than xena rae today and not communicating well with her when he was awake. His blood pressures were reportedly low at dialysis but his dialysis was completed. He has a history of a mechanical aortic valve for which she has had 3 replacements and a mitral valve repair. He is on Coumadin at baseline and evidently recently they have been having some difficulty getting his INR therapeutic. He reports that he has had some dark stools that were not black for approximately the last 2 weeks. He denied any chest pain or shortness of breath, fever or chills, complains of some mild nausea but no vomiting. He has a history of liver disease and follows with tailer out at [facility]. He has been stable with regards to this for some time. He is uncertain what caused his liver disease but reports that he is a nondrinker. In the emergency department his temperature was 98.3, heart rate 76, blood pressure 104/50, respiratory rate 18 and oxygen saturation 95% on room air. CBC was obtained and was found to have a normal white count but a markedly low hemoglobin at 5.4 and a thrombocytopenia at 125,000 which appears to be close to his baseline. He has seen oncology previously for follow-up for non-Hodgkin's lymphoma and anemia related to chronic kidney disease and takes iron at baseline . His last hemoglobin after his visit with them on 06/06/2022 was 12.5 so he is dropped more than 6 g in a little over a month. His INR was 5.9. His goal INR is 2.5-3.5. His chemistry panel showed normal electrolytes, chronically elevated serum bike carbonate, a BUN of 36 and a serum creatinine of 3.06. He has a slightly elevated direct bilirubin at 0.37 but his total bilirubin was only 0.7. His AST and ALT are within normal limits, his ammonia was 46. High- sensitivity troponin was 59. His lipase was 277. His UA was not consistent with infection. CT of his head showed chronic involutional changes but no acute hemorrhage or other changes. His chest x-ray demonstrated no interval change from previous exam on 01/10/2022. In the emergency department he was ordered 2 units of packed red blood cells and it was thought that there was no gastroenterology coverage here this weekend so the patient was initially transferred to [facility] however upon discussion with the emergency department physician I was able to get a hold of gastroenterology, Dr. Zheng, and he was willing to see the patient here. The patient was agreeable to staying and the transfer was canceled. [facility] Medical History Abnormal results of thyroid function studies Airway intubation performed without difficulty Anemia in chronic kidney disease Atrial flutter Bacterial endocarditis Benign essential hypertension Biventricular cardiac pacemaker in situ (~05/26/16) CAD (coronary artery disease) Cardiomyopathy in disease classified elsewhere Cardiopulmonary arrest with successful resuscitation 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, stage III (moderate) Chronic renal insufficiency CKD stage G5/A1, GFR <15 and albumin creatinine ratio <30 mg/g Coagulopathy COVID-19 Diffuse large b-cell lymphoma, extranodal and solid organ sites Dyspnea Encounter for long-term (current) use of high-risk medication Endocarditis due to Staphylococcus GI bleed Gout History of diffuse large B-cell lymphoma History of DVT (deep vein thrombosis) History of non-Hodgkin's lymphoma History of pacemaker History of rheumatic fever as a child Hyperthyroidism Hypothyroidism (acquired) Infectious endocarditis Iron deficiency skilled nursing (current) use of 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 MRSA (methicillin resistant Staphylococcus aureus) infection Non-rheumatic mitral regurgitation Non-rheumatic mitral valve stenosis Non-ST elevation (NSTEMI) myocardial infarction MIA (obstructive sleep apnea) Paroxysmal ventricular tachycardia Pure hypercholesterolemia Rheumatic aortic stenosis Rheumatic mitral insufficiency Sepsis TIA (transient ischemic attack) (~11/19/15) Home Medications tamsulosin 0.4 mg capsule 0.4 mg PO DINNER prostate 05/19/21 [History Last Taken 01/09/22] levothyroxine 75 mcg tablet 75 mcg PO DAILY thyroid 08/24/21 [History Last Taken 01/10/22] fluconazole 200 mg tablet 200 mg PO DAILY fungal infection 10/31/21 [History Last Taken 01/09/22] ondansetron HCl 4 mg tablet 4 mg PO Q6H PRN Nausea 10/31/21 [History Last Taken 01/10/22 04:15] rifaximin 550 mg tablet (Xifaxan) 550 mg PO BID diarrhea 01/10/22 [History Last Taken 01/09/22] vitamin B complex-vitamin C-folic acid 0.8 mg tablet (Nephro-Baltazar) 1 tab PO DAILY vitamin 01/10/22 [History Last Taken 01/09/22] doxycycline hyclate 100 mg tablet 100 mg PO BID #60 tabs 01/12/22 [Rx Last Taken Unknown] ferrous sulfate 325 mg (65 mg iron) tablet 325 mg PO QODAY SUPPLEMENT #0 tabs 01/12/22 [Rx Last Taken 01/09/22] albuterol sulfate 90 mcg/actuation aerosol inhaler (Ventolin HFA) 2 puff inhalation Q4H PRN shortness of breath or wheezing #18 grams 01/26/22 [Rx Last Taken Unknown] alprazolam 1 mg tablet (Xanax) 0.5 mg PO QHS Sleep 02/01/22 [History Last Taken Unknown] pantoprazole 40 mg tablet,delayed release 40 mg PO DAILY GERD 02/01/22 [History Last Taken Unknown] carvedilol 6.25 mg tablet (Coreg) 6.25 mg PO BID 04/04/22 [History Last Taken Unknown] levetiracetam 500 mg tablet (Keppra) 500 mg PO BID #60 tabs 04/24/22 [Rx Last Taken Unknown] levocarnitine 330 mg tablet (Carnitor) 330 mg PO BID #60 tabs 04/24/22 [Rx Last Taken Unknown] sevelamer HCl 800 mg tablet (Renagel) 1,600 mg PO TID 06/06/22 [History Last Taken Unknown] isosorbide mononitrate 30 mg tablet,extended release 24 hr 30 mg PO DAILY 07/15/22 [History Last Taken Unknown] warfarin 1 mg tablet 6 mg PO WETH blood thinner 07/15/22 [History Last Taken Un known] warfarin 6 mg tablet 3 mg PO SUMOTUFRSA 07/15/22 [History Last Taken Unknown] Allergy/AdvReac Type Severity Reaction Status Date / Time No Known Allergies Allergy Verified 07/15/22 11:51 Family History Father CAD (coronary artery disease) CABG Brother CAD (coronary artery disease) CABG Mother Diabetes Sister Breast cancer Diabetes Sister Cancer breast Diabetes Surgical History dual chamber pacemaker implantation (~10/2010) History of aortic valve replacement (~08/2003) History of appendectomy History of atrioventricular chiquita ablation History of cholecystectomy History of evacuation of hematoma History of heart valve replacement with mechanical valve History of heart valve replacement with mechanical valve History of mechanical aortic valve replacement (~1986) History of mitral valve repair (~08/2003) Social History household members: spouse housing: house current occupational status: retired current occupational exposures/hazards: No history of recent travel: No Smoking Status: Never smoker alcohol intake: never substance use type: does not use caffeine: No what type of physical activity do you participate in: weight training and other details: Nustep frequency: 3-4 times per week duration: 45-60 minutes/day seatbelt use: always do you feel safe at home: Yes ROS Constitutional Constitutional: Reports fatigue and weakness; Denies anorexia, change in weight, chills, fever(s), malaise, night sweats or other Eyes Eyes: Denies blurry vision, change in eye color, change in vision, discharge from eye(s), double vision, erythema, eye pain, loss of vision or other ENT HEENT: Denies abnormal hearing, dysphagia, ear pain, epistaxis, headache(s), hearing loss, nasal congestion, nasal discharge, post nasal drip, sinus pressure, sore throat or other Cardiovascular Cardiovascular: Denies chest pain, claudication, dyspnea on exertion, edema, lightheadedness, orthopnea, palpitations, paroxysmal nocturnal dyspnea, rapid heart rate, syncope or other Respiratory/Chest Respiratory/Chest: Denies cough, dyspnea, excessive phlegm production, hemopty sis, productive cough, shortness of breath at rest, shortness of breath with exertion, wheezing or other Gastrointestinal Gastrointestinal: Reports melena and nausea; Denies abdominal pain, coffee ground emesis, constipation, diarrhea, dyspepsia, hematemesis, hematochezia, loose stools, vomiting or other Genitourinary Genitourinary: Denies burning urination, difficulty urinating, dysuria, hematuria, nocturia, urinary frequency, urinary hesitancy, urinary incontinence, urinary urgency or other Musculoskeletal Musculoskeletal: Reports joint pain; Denies arthralgias, back pain, joint stiffness, joint swelling, myalgias, neck pain or other Neurologic Neurologic: Denies abnormal gait, abnormal speech, confusion, disequilibrium, dizziness, focal weakness, headache(s), numbness, paresthesias, seizure-like activity, seizures, syncope, tingling, tremor(s) or other Psychiatric Psychiatric: Denies anxiety, depression, homicidal ideation, suicidal ideation or other Endocrine Endocrinology: Denies change in body appearance, cold intolerance, excessive sweating, heat intolerance, polydipsia, polyuria or other Hematologic/Lymphatic Hematologic/Lymphatic: Reports anemia; Denies easy bleeding, easy bruising, lymphadenopathy or other Allergic/Immunologic Allergic/Immunologic: Denies rhinitis, hives, eczemia, asthma or other Vital Signs Vital Signs Vital Signs: 07/15/22 11:47 07/15/22 12:18 07/15/22 13:21 Temperature 98.3 F Temperature Source Oral Pulse Rate 76 72 Respiratory Rate 18 16 Blood Pressure 104/50 L 106/55 L Blood Pressure Mean 68 72 Blood Pressure Source Blood Pressure Position Blood Pressure Location Pulse Ox 95 98 99 Oxygen Delivery Method Room Air Room Air Room Air 07/15/22 14:19 07/15/22 15:03 07/15/22 15:40 Temperature 98 F Temperature Source Oral Pulse Rate 72 71 70 Respiratory Rate 17 18 20 H Blood Pressure 113/50 L 98/47 L 105/36 L Blood Pressure Mean 71 64 59 Blood Pressure Source Blood Pressure Position Blood Pressure Location Pulse Ox 99 98 99 Oxygen Delivery Method Room Air Room Air Room Air 07/15/22 15:46 07/15/22 16:01 07/15/22 16:00 Temperature 98 F 97.3 F L 97.9 F Temperature Source Oral Oral Oral Pulse Rate 70 71 70 Respiratory Rate 18 17 17 Blood Pressure 109/43 L 113/39 L 110/40 L Blood Pressure Mean 65 63 63 Blood Pressure Source Monitor Monitor Monitor Blood Pressure Position Semi-Fowlers Semi-Fowlers Semi-Fowlers Blood Pressure Location Left Arm Left Arm Left Arm Pulse Ox 99 100 100 Oxygen Delivery Method Room Air Room Air Room Air 07/15/22 17:39 07/15/22 17:54 07/15/22 18:17 Temperature 98.6 F 98.7 F Temperature Source Oral Oral Pulse Rate 70 71 70 Respiratory Rate 24 H 22 H 18 Blood Pressure 112/45 L 106/33 L Blood Pressure Mean 67 57 Blood Pressure Source Monitor Monitor Blood Pressure Position Semi-Fowlers Semi-Fowlers Blood Pressure Location Left Arm Left Arm Pulse Ox 99 99 97 Oxygen Delivery Method Room Air Room Air Room Air 07/15/22 18:30 07/15/22 17:41 07/15/22 19:00 Temperature 98.3 F 98.3 F Temperature Source Oral Oral Pulse Rate 74 70 74 Respiratory Rate 18 24 H 18 Blood Pressure 113/59 L 113/59 L Blood Pressure Mean 77 77 Blood Pressure Source Monitor Blood Pressure Position Semi-Fowlers Blood Pressure Location Left Arm Pulse Ox 99 99 99 Oxygen Delivery Method Room Air Room Air 07/15/22 17:41 Temperature 98.3 F Temperature Source Oral Pulse Rate 85 Respiratory Rate 18 Blood Pressure 114/83 H Blood Pressure Mean 93 Blood Pressure Source Monitor Blood Pressure Position Semi-Fowlers Blood Pressure Location Left Arm Pulse Ox 100 Oxygen Delivery Method Room Air Weight Weight: 78.4 kg Body Mass Index (BMI) 27.1 Physical Exam Const alert and oriented x3 Constitutional Narrative: Older white male sitting up in bed, interacts appropriately however responses are extremely slow, appears comfortable at this time and nontoxic, looks somewhat pale General Appearance: cooperative HEENT normocephalic, head/scalp atraumatic and moist oral mucous membranes HEENT Narrative: Marked hearing loss, Mallampati 3, no thrush Eyes PERRL and EOMs intact bilaterally Eyes Narrative: Pale conjunctiva bilaterally, no scleral icterus Neck no lymphadenopathy, supple, no JVD and no carotid bruits Neck Narrative: Trachea midline, no thyroid enlargement Resp normal respiratory effort, no retractions, no use of accessory muscles and clear to auscultation bilaterally Auscultation: Negative for crackles, rales, rhonchi or wheezes Cardio regular rate, S1 normal heart sound, S2 normal heart sound, no rub, no gallops and no JVD; Negative for regular rhythm, no murmurs or no clicks Cardio Narrative: Paced rhythm with intermittent ectopic beats, click noted, soft murmur GI normal to inspection, nondistended, normoactive bowel sounds, soft to palpation and non-tender Extremity no clubbing, cyanosis or edema Extremity Narrative: 2+ pedal pulses Skin no rashes or lesions noted, no wounds, skin turgor normal, no jaundice, no petechiae and no mottling Skin Narrative: Pale, tunneled dialysis catheter right chest-clean and dry and dressing intact Neuro oriented x3, CN's II-XII intact bilaterally, moves all extremities and no focal motor deficits Neuro Narrative: Response time is slow but answers are correct, significant generalized weakness Sensorium / Orientation: awake, alert, oriented to person, oriented to place and oriented to time Psych Psych Narrative: Affect is flat Results Lab / Micro Data Result Diagrams: 07/15/22 12:04 07/15/22 12:04 Labs: Laboratory Results - last 24 hr 07/15/22 12:04: WBC 5.4, RBC 1.59 L, Hgb 5.4 L*, Hct 15.8 L, MCV 99.4 H, MCH 34.0 H, MCHC 34.2, RDW Std Deviation 59.7 H, RDW Coeff of Jennifer 16.9 H, Plt Count 125 L, MPV 9.4, Immature Gran % (Auto) 0.400, Neut % (Auto) 75.5 H, Lymph % (Auto) 13.2 L, [place] % (Auto) 9.2, Eos % (Auto) 1.5, Baso % (Auto) 0.2, Absolute Neuts (auto) 4.1, Absolute Lymphs (auto) 0.72 L, Nucleated RBC % 0, Diff Path Review May foll, Platelet Estimate 5.4, Hypochromasia 2+ 07/15/22 12:04: Sodium 138, Potassium 4.2, Chloride 99, Carbon Dioxide 35.0 H, Anion Gap 4 L, BUN 36 H, Creatinine 3.06 H, Estim Creat Clear Calc 20.10, Est GFR (MDRD) Af Amer 26 L, Est GFR (MDRD) Non-Af 21 L, BUN/Creatinine Ratio 11.8, Glucose 95, Calcium 8.5, Total Bilirubin 0.70, Direct Bilirubin 0.37 H, AST 32, ALT 27, Alkaline Phosphatase 297 H, Troponin I High Sens 59, Total Protein 6.3 L , Albumin 2.8 L, Globulin 3.5, Lipase 277 07/15/22 12:04: Ammonia 46.0 H, B-Natriuretic Peptide 277.9 H 07/15/22 12:04: PT 52.8 H, INR 5.9 H* 07/15/22 13:35: Blood Type Cancelled, Antibody Screen Cancelled, Crossmatch See Detail 07/15/22 13:55: Blood Type A POSITIVE, Antibody Screen NEGATIVE, Crossmatch See Detail 07/15/22 17:00: Urine Color Yellow, Urine Clarity Clear, Urine pH 8.0, Ur Specific Cardale 1.010, Urine Protein 30 H, Urine Glucose (UA) Normal, Urine Ketones Negative, Urine Occult Blood Negative, Urine Nitrite Negative, Urine Bilirubin 1 H, Urine Urobilinogen Normal, Ur Leukocyte Esterase 25 H, Urine RBC 0 SEEN, Urine WBC 0-5 SEEN, Ur Squamous Epith Cells 0 SEEN, Urine Bacteria 1+, Urine Mucus 0 SEEN Radiology Impression Brain CT 07/15/22 12:19 IMPRESSION: Chronic involutional changes of the brain. No acute hemorrhage Electronically Signed: Garcia Price MD at 12:59 EDT , Chest X-Ray 07/15/22 12:24 IMPRESSION: No interval change Electronically Signed: Garcia Price MD at 12:52 EDT , Assessment & Plan Assessment/Plan (1) Acute metabolic encephalopathy: (2) Supratherapeutic INR: (3) GI bleed: (4) Acute on chronic anemia: PLAN: Plan GI bleed -Patient with history of peptic ulcer disease and also mucosal bleeding in the colon no did on scopes in 2018 -Aspirin was discontinued at that time -Unclear if this is upper or lower at this time however would highly suspect upper given history -Transfused 2 units of packed red blood cells -Cycle H&H -Protonix drip with bolus -Octreotide drip -Hold Coumadin but will hold off on reversing INR at this time with his mechanical valves as I would not want to clot off of valve -Repeat INR in a.m. -With history of liver disease will cover for SBP with ceftriaxone 2 g daily -Would be at significant risk for AVMs -Case discussed with Dr. Zheng from gastroenterology and he will follow norm matthew Acute on chronic anemia -Chronic anemia from chronic renal disease -Hemoglobin at baseline was 12.4 on most recent CBC from May -Down to 5.4 today -Transfused 2 units packed red blood cells -Repeat hemoglobin following transfusion -Cycle H&H's every 6 hours -Sinew home oral iron supplementation Supratherapeutic INR -Patient on anticoagulation for mechanical valves -Goal INR 2.5-3.5 -Will not reverse anticoagulation given his history of mechanical valves however will hold Coumadin at this time and repeat INR in a.m. -May need to reverse if bleeding becomes more significant however at this point I suspect a slow trickle over time given his current symptoms--> he seems to be tolerating this hemoglobin without any significant issues and I suspect this bleed to be slow Acute metabolic encephalopathy -Likely related to marked anemia -Transfusion and continue to monitor -Patient is currently alert and oriented x3 however response times are slow End-stage renal disease on HD -M, W, F dialysis -Consult nephrology -Patient follows with Dr. Calderon -Continue phosphate binder Liver cirrhosis -Etiology is unclear -Patient denies any previous alcohol use -Continue home rifaximin -Currently appears to be compensated and I doubt this is the etiology of his confusion at this time -Ultrasound done at [facility] on 02/2022 to assess for hepatocellular carcinoma and it was negative for any nodules or masses -Continue rifaximin Antibiotic use -Med rec shows doxycycline and fluconazole -Unclear if he is currently on these or not and patient was unable to tell me -We will need to confirm--> but it appears that this may be old prescription still left as confirmed Hypertension -Blood pressures currently soft with severe anemia -Hold carvedilol -Hold isosorbide mononitrate GERD -Hold oral Protonix -Use drip at this time BPH -Continue Flomax Hypothyroidism -Continue levothyroxine -Check TSH Possible seizure history -Continue Keppra -Continue levocarnitine -Follows with Dr. Holley at baseline Insomnia -Takes Xanax 0.5 mg at at bedtime for sleep as needed -We will hold at this time with soft blood pressures -Melatonin made available DVT prophylaxis -None needed as INR supratherapeutic CODE STATUS -DNR CCA with no intubation as per discussion on admission Charges/Coding Visit Charges Inpatient E&M: 38125 Init Hosp L3
--- NOTE | 2022-07-15 20:17 | NURSING ---
pt is not able to verify medications with this nurse. Pt states, Review those with my .
[2022-07-15] MEDS: rifAXIMin 550 MG Tablet PO (21:27)
[2022-07-15] MEDS: levETIRAcetam 500 MG Tablet PO (21:27)
[2022-07-15 22:38] LABS: Hematocrit 23.4 % (40-54); Hemoglobin 7.7 g/dL (13.0-16.5)
[2022-07-16] VITALS (11 sets, daily range): BP systolic 110–136; BP diastolic 48–72; PULSE 69–106; RESP 14–20; TEMP 36.3–37.3; O2SAT 93–100; BMI 25.4
--- NOTE | 2022-07-16 01:35 | NURSING ---
while at pt bedside, pt is on phone and noted to state to pt that home medications were reviewed with nurse in ED. pt is nable to recall/ review home medications at this time.
[2022-07-16 04:51] LABS: Absolute Lymphocyte Count 1.12 X10^3/uL (0.83-4.51); Absolute Neutrophil Count 3.9 X10^3/uL (2.0-7.7); Basophil# 0.04 X10^3/uL; Basophil% 0.7 % (0-1); Eosinophils% 1.7 % (0-5); Hematocrit 22.1 % (40-54); Hemoglobin 7.2 g/dL (13.0-16.5); Lymphocyte # 1.12 X10^3/ul (0.83-4.51); Lymphocyte % 18.9 % (19-41); Mean Corp Hgb Conc 32.6 g/dL (32-36); Mean Corpuscular Hgb 32.1 pg (27.0-32.0); Mean Corpuscular Volume 98.7 fL (80-94); Mean Platelet Vol. 9.6 fl (6.2-12.0); Monocyte# 0.77 X10^3/uL; NRBC Flagged by Analyzer 0 % (0-5); Neutrophil # 3.88 X10^3/uL (2.7-7.7); Neutrophil % 65.5 % (47-70); Platelet Count 127 K/mm3 (150-450); RBC Distribution Width CV 17.7 % (11.6-14.6); RBC Distribution Width SD 62.4 fl (35.1-43.9); Red Blood Count 2.24 M/mm3 (4.6-6.2); White Blood Count 5.9 K/mm3 (4.4-11.0)
[2022-07-16 05:10] LABS: Prothrombin Time (Protime)PT. 44.6 SECONDS (11.7-14.9)
[2022-07-16 05:12] LABS: International Normalized Ratio 4.8
[2022-07-16] MEDS: Levothyroxine 75 MCG Tablet PO (05:20)
[2022-07-16 05:24] LABS: Anion Gap 6 (5-15); BUN 56 mg/dL (7-18); Calcium,Total 8.2 mg/dL (8.5-10.1); Chloride 99 mmol/L (98-107); Creatinine, Serum 4.67 mg/dL (0.70-1.30); EST Glomerular Filtration Rate 13 mL/min (>60); Est Glom Filt Rate - Afr Amer 16 mL/min (>60); Estimated Creatinine Clearance 13.17 ml/min; Glucose 83 mg/dL (74-106); Magnesium 1.8 mg/dL (1.6-2.6); Phosphorus 4.5 mg/dL (2.5-4.9); Potassium 5.9 mmol/L (3.5-5.1); Sodium Level 137 mmol/L (136-145)
[2022-07-16] MEDS: levETIRAcetam 500 MG Tablet PO ×2 (10:06→21:31)
[2022-07-16] MEDS: rifAXIMin 550 MG Tablet PO ×2 (10:06→21:31)
[2022-07-16 10:24] LABS: Hematocrit 21.7 % (40-54); Hemoglobin 7.1 g/dL (13.0-16.5)
[2022-07-16 10:45] LABS: Potassium 6.3 mmol/L (3.5-5.1)
--- NOTE | 2022-07-16 12:31 | PN.HOSP_ITS ---
Subjective Subjective Patient reports he is feeling much better today now that his hemoglobin is improved from 5.4-7.1. His is at the bedside and helps fill in some holes. She does state that his CODE STATUS is full code not DNR CCA as he indicated yesterday on admission. We are awaiting Dr. Zheng's input to see what the plan is with regards to scopes. Objective Data Objective Data Vital Signs: Vital Signs Temp Pulse Resp BP Pulse Ox O2 Del Method 99.1 F 69 16 114/48 L 97 Room Air 07/16/22 08:44 07/16/22 08:44 07/16/22 08:44 07/16/22 08:44 07/16/22 08:44 07/16/22 09:02 Oxygen Delivery Method Room Air Weight: 73.845 kg Body Mass Index (BMI) 24.7 Intake & Output: Intake and Output for Last 24 Hours 07/14/22 07/15/22 07/16/22 23:59 23:59 23:59 Intake Total 885 / 985 575 / 575 Output Total 100 / 100 Balance 885 / 885 475 / 475 Lab / Micro Data Result Diagrams: 07/16/22 10:05 07/16/22 10:05 Labs: Laboratory Results - last 24 hr 07/15/22 12:04: WBC 5.4, RBC 1.59 L, Hgb 5.4 L*, Hct 15.8 L, MCV 99.4 H, MCH 34.0 H, MCHC 34.2, RDW Std Deviation 59.7 H, RDW Coeff of Jennifer 16.9 H, Plt Count 125 L, MPV 9.4, Immature Gran % (Auto) 0.400, Neut % (Auto) 75.5 H, Lymph % (Auto) 13.2 L, [place] % (Auto) 9.2, Eos % (Auto) 1.5, Baso % (Auto) 0.2, Absolute Neuts (auto) 4.1, Absolute Lymphs (auto) 0.72 L, Nucleated RBC % 0, Diff Path Review March, Platelet Estimate 5.4, Hypochromasia 2+ 07/15/22 12:04: Sodium 138, Potassium 4.2, Chloride 99, Carbon Dioxide 35.0 H, Anion Gap 4 L, BUN 36 H, Creatinine 3.06 H, Estim Creat Clear Calc 20.10, Est GFR (MDRD) Af Amer 26 L, Est GFR (MDRD) Non-Af 21 L, BUN/Creatinine Ratio 11.8, Glucose 95, Calcium 8.5, Total Bilirubin 0.70, Direct Bilirubin 0.37 H, AST 32, ALT 27, Alkaline Phosphatase 297 H, Troponin I High Sens 59, Total Protein 6.3 L , Albumin 2.8 L, Globulin 3.5, Lipase 277 07/15/22 12:04: Ammonia 46.0 H, B-Natriuretic Peptide 277.9 H 07/15/22 12:04: PT 52.8 H, INR 5.9 H* 07/15/22 13:35: Blood Type Cancelled, Antibody Screen Cancelled, Crossmatch See Detail 07/15/22 13:55: Blood Type A POSITIVE, Antibody Screen NEGATIVE, Crossmatch See Detail 07/15/22 17:00: Urine Color Yellow, Urine Clarity Clear, Urine pH 8.0, Ur Specific [place] 1.010, Urine Protein 30 H, Urine Glucose (UA) Normal, Urine Ketones Negative, Urine Occult Blood Negative, Urine Nitrite Negative, Urine Bilirubin 1 H, Urine Urobilinogen Normal, Ur Leukocyte Esterase 25 H, Urine RBC 0 SEEN, Urine WBC 0-5 SEEN, Ur Squamous Epith Cells 0 SEEN, Urine Bacteria 1+, Urine Mucus 0 SEEN 07/15/22 22:30: Hgb 7.7 L, Hct 23.4 L 07/16/22 04:25: PT 44.6 H, INR 4.8 H* 07/16/22 04:25: WBC 5.9, RBC 2.24 L, Hgb 7.2 L, Hct 22.1 L, MCV 98.7 H, MCH 32.1 H, MCHC 32.6, RDW Std Deviation 62.4 H, RDW Coeff of Jennifer 17.7 H, Plt Count 127 L , MPV 9.6, Immature Gran % (Auto) 0.200, Neut % (Auto) 65.5, Lymph % (Auto) 18.9 L, [place] % (Auto) 13.0 H, Eos % (Auto) 1.7, Baso % (Auto) 0.7, Absolute Neuts (auto) 3.9, Absolute Lymphs (auto) 1.12, Nucleated RBC % 0 07/16/22 04:25: Sodium 137, Potassium 5.9 H, Chloride 99, Carbon Dioxide 32.0, Anion Gap 6, BUN 56 H, Creatinine 4.67 H, Estim Creat Clear Calc 13.17, Est GFR (MDRD) Af Amer 16 L, Est GFR (MDRD) Non-Af 13 L, BUN/Creatinine Ratio 12.0, Glucose 83, Calcium 8.2 L, Phosphorus 4.5, Magnesium 1.8 07/16/22 10:05: Hgb 7.1 L, Hct 21.7 L 07/16/22 10:05: Potassium 6.3 H* Radiography Diagnostic Testing: Radiology Impression Brain CT 07/15/22 12:19 IMPRESSION: Chronic involutional changes of the brain. No acute hemorrhage Electronically Signed: Garcia Price MD at 12:59 EDT , Chest X-Ray 07/15/22 12:24 IMPRESSION: No interval change Electronically Signed: Garcia Price MD at 12:52 EDT , Physical Exam Const alert, oriented x3, no apparent distress and well nourished Constitutional Narrative: Older white male sitting up in bed, at bedside, response times are much more appropriate and timely, patient appears comfortable and nontoxic and is if he is feeling much better today General Appearance: cooperative HEENT normocephalic, head/scalp atraumatic and moist oral mucous membranes HEENT Narrative: Dentition is poor, Mallampati is 2, no thrush Resp normal respiratory effort, no retractions, no use of accessory muscles and clear to auscultation bilaterally Auscultation: Negative for crackles, rales, rhonchi or wheezes Cardio regular rate, S1 normal heart sound, S2 normal heart sound, no rub, no gallops and no JVD; Negative for regular rhythm, no murmurs or no clicks Cardio Narrative: Paced rhythm with intermittent ectopic beats, click noted, soft murmur GI normal to inspection, nondistended, normoactive bowel sounds, soft to palpation and non-tender Extremity no clubbing, cyanosis or edema Extremity Narrative: 2+ pedal pulses Skin no rashes or lesions noted, no wounds, skin turgor normal, no jaundice, no petechiae and no mottling Skin Narrative: Pale, tunneled dialysis catheter right chest-clean and dry and dressing intact Neuro oriented x3, moves all extremities and no focal motor deficits Neuro Narrative: Thoughts times have normalized, general weakness noted Sensorium / Orientation: awake, alert, oriented to person, oriented to place and oriented to time Speech: speech normal Psych affect normal Psych Narrative: Appropriately interactive Assessment & Plan Assessment/Plan (1) Acute metabolic encephalopathy: (2) Supratherapeutic INR: (3) GI bleed: (4) Acute on chronic anemia: (5) Hyperkalemia: PLAN: Plan GI bleed -Patient with history of peptic ulcer disease and also mucosal bleeding in the colon no did on scopes in 2018 -Aspirin was discontinued at that time -Unclear if this is upper or lower at this time however would highly suspect upper given history -Cycle H&H -Continue Protonix drip with bolus -Continue octreotide drip -Continue to hold Coumadin but will hold off on reversing INR at this time with his mechanical valves as I would not want to thrombose his valve -Repeat INR in a.m.--> trending down -With history of liver disease will cover for SBP with ceftriaxone 2 g daily -Plan is for scope later today -GI is following-appreciate input Acute on chronic anemia -Chronic anemia from chronic renal disease -Hemoglobin at baseline was 12.4 on most recent CBC from May -5.4 on admission -Transfused 2 units packed red blood cells on 01/15/2022 -Hemoglobin stable at 7.1-7.2 after transfusion -Cycle H&H's every 6 hours -Continue home oral iron supplementation Hyperkalemia -5.9 with a repeat of 6.3 -Suspect upper secondary to blood transfusion -Was 4.2 on admission -Kayexalate 30 mg today and repeat in a.m. -Patient is due for dialysis on Sunday Supratherapeutic INR -Patient on anticoagulation for mechanical valves -Goal INR 2.5-3.5 -Will not reverse anticoagulation given his history of mechanical valves however will hold Coumadin at this time and repeat INR in a.m. -May need to reverse if bleeding becomes more significant however at this point I suspect a slow trickle over time given his current symptoms--> he seems to be tolerating this hemoglobin without any significant issues and I suspect this bleed to be slow -INR down from 5.9-4.8 -Continue to hold Coumadin Acute metabolic encephalopathy -Resolved End-stage renal disease on HD -TTS dialysis -Consult nephrology--> Dr. Sharron Calderon notified -Continue phosphate binder Liver cirrhosis -Etiology is unclear -Patient denies any previous alcohol use -Continue home rifaximin -Currently appears to be compensated and I doubt this is the etiology of his confusion at this time -Ultrasound done at [facility] on 02/2022 to assess for hepatocellular carcinoma and it was negative for any nodules or masses -Continue rifaximin Hypertension -Blood pressures improved from admission but still within normal range -Continue to hold carvedilol -Continue to hold isosorbide mononitrate GERD -Hold oral Protonix -Use drip at this time BPH -Continue Flomax Hypothyroidism -Continue levothyroxine -TSH was 1.42 on 01/11/2022 Possible seizure history -Continue Keppra -Continue levocarnitine -Follows with Dr. Holley at baseline Insomnia -Takes Xanax 0.5 mg at at bedtime for sleep as needed -We will hold at this time with soft blood pressures -Melatonin made available DVT prophylaxis -Remain supratherapeutic CODE STATUS -CODE STATUS changed to full code, is at bedside and they both agree that his CODE STATUS should be full code at this time. Charges/Coding Visit Charges Inpatient E&M: 21082 Subs Hosp L2
[2022-07-16] MEDS: Sodium Polystyrene Sulfonate 15 GM/60 ML UDC 30 GM PO (13:18)
--- NOTE | 2022-07-16 14:46 | CON.PCM_ITS ---
Assessment & Plan Assessment/Plan (1) GI bleed: PLAN: Differential diagnosis for acute blood loss anemia would be GI bleed secondary to portal gastropathy from a supratherapeutic INR, gastric esophageal varices or duodenal varices, angiodysplasia, gastric antral vascular ectasia, peptic ulcer disease secondary to cirrhosis. Patient undergoing upper endoscopy to evaluate his upper GI tract. He is INR supratherapeutic. Recommend to hold anticoagulation. Also his potassium is elevated 5.9 recommend Kayexalate and evaluation for hemodialysis. Recommend PPI drip and octreotide along with ceftriaxone 1 g IV every 24 hours. (2) Hyperammonemia: PLAN: Hyperammonia anemia likely secondary to blood loss anemia. He is not have any signs of ascites. As per his he has been compliant with his medicines. Recommend continue Xifaxan and lactulose therapy as previously ordered. It may not improve until he gets dialysis. 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 He was mildly encephalopathic which is improved. He is not significantly more jaundiced than he previously was on last admission when I saw him. His current meld is 12 and he is a child [place] C. That makes him very high risk for any procedures. However if his hemoglobin continues to be down after transfusion and correction of his INR he will likely need emergent endoscopy with the caveat that he carries a high morbidity and mortality. HPI Consult Data Date of Consult: 07/17/22 HPI Narrative HPI Narrative: CHRISTIAN RICHMOND, is a 72 M who presents from home with altered mental status. He is known to the GI service. I saw him previously for diagnosis of anemia.? His gives most of the history.? She states that he was feeling generally weak this morning before going dialysis.? He gets his dialysis on Sunday, , Sunday.? She states that typically after dialysis he does not do much for the rest of the day and feels generally weak.? The patient today seems to be a little bit weaker per the he is not really communicating with her very well but he is awake.? 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 Patient's notes that his blood pressure's were low at dialysis today, and she states they did not discontinue dialysis even though his pressures were low.? She states that the blood pressures were as low as 84/35.? She does recall that his systolic pressures usually about 115 and that they try to keep his blood pressure low because of his prosthetic heart valve which has been replaced twice.? He is on Coumadin and she states that he has been having trouble getting it to a therapeutic range.? Patient has not complained of chest pain or shortness of breath.? Has not had a fever.? He has not had nausea or vomiting.? The patient's does state that he looks a little bit more jaundiced than usual.? He has a history of liver failure and sees a specialist at [facility].? He is on lactulose for a very long time but his states now he is on Xifaxan.? There is been no medication changes.? She states that the patient has had a UTI in the past and he still makes urine 3 times a day.? He has not complained of dysuria or urinary frequency. He has a history of end-stage renal disease and gets dialysis on Sunday and Sunday. He was discovered to have a hemoglobin of 7.1. His INR was discovered to be 5.9. His hemoglobin usually ranges between 10 and 11. I was consulted to see him due to worsening anemia and history of cirrhosis. I have never performed endoscopy on him or colonoscopy. Previous consultation when I saw him was for lower GI bleeding and altered mental status. His hemoglobin improved and he followed up with his outside intermission coordinator. [facility] Medical History Abnormal results of thyroid function studies Airway intubation performed without difficulty Anemia in chronic kidney disease Atrial flutter Bacterial endocarditis Benign essential hypertension Biventricular cardiac pacemaker in situ (~05/26/16) CAD (coronary artery disease) Cardiomyopathy in disease classified elsewhere Cardiopulmonary arrest with successful resuscitation 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, stage III (moderate) Chronic renal insufficiency CKD stage G5/A1, GFR <15 and albumin creatinine ratio <30 mg/g Coagulopathy COVID-19 Diffuse large b-cell lymphoma, extranodal and solid organ sites Dyspnea Encounter for long-term (current) use of high-risk medication Endocarditis due to Staphylococcus GI bleed Gout History of diffuse large B-cell lymphoma History of DVT (deep vein thrombosis) History of non-Hodgkin's lymphoma History of pacemaker History of rheumatic fever as a child Hyperthyroidism Hypothyroidism (acquired) Infectious endocarditis Iron deficiency shelter (current) use of 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 MRSA (methicillin resistant Staphylococcus aureus) infection Non-rheumatic mitral regurgitation Non-rheumatic mitral valve stenosis Non-ST elevation (NSTEMI) myocardial infarction MIA (obstructive sleep apnea) Paroxysmal ventricular tachycardia Pure hypercholesterolemia Rheumatic aortic stenosis Rheumatic mitral insufficiency Sepsis TIA (transient ischemic attack) (~11/19/15) Home Medications tamsulosin 0.4 mg capsule 0.4 mg PO DINNER prostate 05/19/21 [History Last Taken 01/09/22] levothyroxine 75 mcg tablet 75 mcg PO DAILY thyroid 08/24/21 [History Last Taken 01/10/22] fluconazole 200 mg tablet 200 mg PO DAILY fungal infection 10/31/21 [History Last Taken 01/09/22] ondansetron HCl 4 mg tablet 4 mg PO Q6H PRN Nausea 10/31/21 [History Last Taken 01/10/22 04:15] rifaximin 550 mg tablet (Xifaxan) 550 mg PO BID diarrhea 01/10/22 [History Last Taken 01/09/22] vitamin B complex-vitamin C-folic acid 0.8 mg tablet (Nephro-Baltazar) 1 tab PO JOAQUINA LY vitamin 01/10/22 [History Last Taken 01/09/22] doxycycline hyclate 100 mg tablet 100 mg PO BID #60 tabs 01/12/22 [Rx Last Taken Unknown] ferrous sulfate 325 mg (65 mg iron) tablet 325 mg PO QODAY SUPPLEMENT #0 tabs 01/12/22 [Rx Last Taken 01/09/22] albuterol sulfate 90 mcg/actuation aerosol inhaler (Ventolin HFA) 2 puff inhalation Q4H PRN shortness of breath or wheezing #18 grams 01/26/22 [Rx Last Taken Unknown] alprazolam 1 mg tablet (Xanax) 0.5 mg PO QHS Sleep 02/01/22 [History Last Taken Unknown] pantoprazole 40 mg tablet,delayed release 40 mg PO DAILY GERD 02/01/22 [History Last Taken Unknown] carvedilol 6.25 mg tablet (Coreg) 6.25 mg PO BID 04/04/22 [History Last Taken Unknown] levetiracetam 500 mg tablet (Keppra) 500 mg PO BID #60 tabs 04/24/22 [Rx Last Taken Unknown] levocarnitine 330 mg tablet (Carnitor) 330 mg PO BID #60 tabs 04/24/22 [Rx Last Taken Unknown] sevelamer HCl 800 mg tablet (Renagel) 1,600 mg PO TID 06/06/22 [History Last Taken Unknown] isosorbide mononitrate 30 mg tablet,extended release 24 hr 30 mg PO DAILY 07/15/22 [History Last Taken Unknown] warfarin 1 mg tablet 6 mg PO WETH blood thinner 07/15/22 [History Last Taken Unknown] warfarin 6 mg tablet 3 mg PO SUMOTUFRSA 07/15/22 [History Last Taken Unknown] Allergy/AdvReac Type Severity Reaction Status Date / Time No Known Allergies Allergy Verified 07/15/22 11:51 Family History Father CAD (coronary artery disease) CABG Brother CAD (coronary artery disease) CABG Mother Diabetes Sister Breast cancer Diabetes Sister Cancer breast Diabetes Surgical History dual chamber pacemaker implantation (~10/2010) History of aortic valve replacement (~08/2003) History of appendectomy History of atrioventricular chiquita ablation History of cholecystectomy History of evacuation of hematoma History of heart valve replacement with mechanical valve History of heart valve replacement with mechanical valve History of mechanical aortic valve replacement (~1986) History of mitral valve repair (~08/2003) Social History household members: spouse housing: house current occupational status: retired current occupational exposures/hazards: No history of recent travel: No Smoking Status: Never smoker alcohol intake: never substance use type: does not use caffeine: No what type of physical activity do you participate in: weight training and other details: Nustep frequency: 3-4 times per week duration: 45-60 minutes/day seatbelt use: always do you feel safe at home: Yes ROS Constitutional Constitutional: Reports fatigue and weakness; Denies anorexia, change in weight, chills, fever(s), malaise, night sweats or other Eyes Eyes: Denies blurry vision, change in eye color, change in vision, discharge from eye(s), double vision, erythema, eye pain, loss of vision or other ENT HEENT: Denies abnormal hearing, dysphagia, ear pain, epistaxis, headache(s), hearing loss, nasal congestion, nasal discharge, post nasal drip, sinus pressure, sore throat or other Cardiovascular Cardiovascular: Denies chest pain, claudication, dyspnea on exertion, edema, lightheadedness, orthopnea, palpitations, paroxysmal nocturnal dyspnea, rapid heart rate, syncope or other Respiratory/Chest Respiratory/Chest: Denies cough, dyspnea, excessive phlegm production, hemoptysis, productive cough, shortness of breath at rest, shortness of breath with exertion, wheezing or other Gastrointestinal Gastrointestinal: Reports melena and nausea; Denies abdominal pain, coffee ground emesis, constipation, diarrhea, dyspepsia, hematemesis, hematochezia, loose stools, vomiting or other Genitourinary Genitourinary: Denies burning urination, difficulty urinating, dysuria, hematuria, nocturia, urinary frequency, urinary hesitancy, urinary incontinence, urinary urgency or other Musculoskeletal Musculoskeletal: Reports joint pain; Denies arthralgias, back pain, joint stiffness, joint swelling, myalgias, neck pain or other Neurologic Neurologic: Denies abnormal gait, abnormal speech, confusion, disequilibrium, dizziness, focal weakness, headache(s), numbness, paresthesias, seizure-like activity, seizures, syncope, tingling, tremor(s) or other Psychiatric Psychiatric: Denies anxiety, depression, homicidal ideation, suicidal ideation or other Endocrine Endocrinology: Denies change in body appearance, cold intolerance, excessive sweating, heat intolerance, polydipsia, polyuria or other Hematologic/Lymphatic Hematologic/Lymphatic: Reports anemia; Denies easy bleeding, easy bruising, lymphadenopathy or other Allergic/Immunologic Allergic/Immunologic: Denies rhinitis, hives, eczemia, asthma or other Physical Exam Const alert, oriented x3, no apparent distress and well nourished General Appearance: cooperative HEENT normocephalic, head/scalp atraumatic and moist oral mucous membranes HEENT Narrative: Dentition is poor Resp normal respiratory effort, no retractions, no use of accessory muscles and clear to auscultation bilaterally Auscultation: Negative for crackles, rales, rhonchi or wheezes Cardio regular rate, S1 normal heart sound, S2 normal heart sound, no rub, no gallops and no JVD; Negative for regular rhythm, no murmurs or no clicks Cardio Narrative: Paced rhythm with intermittent ectopic beats, click noted, soft murmur GI normal to inspection, nondistended, normoactive bowel sounds, soft to palpation and non-tender Extremity no clubbing, cyanosis or edema Extremity Narrative: 2+ pedal pulses Skin no rashes or lesions noted, no wounds, skin turgor normal, no jaundice, no petechiae and no mottling Skin Narrative: Pale, tunneled dialysis catheter right chest-clean and dry and dressing intact Neuro oriented x3, moves all extremities and no focal motor deficits Neuro Narrative: Thoughts times have normalized, general weakness noted Sensorium / Orientation: awake, alert, oriented to person, oriented to place and oriented to time Speech: speech normal Psych affect normal Psych Narrative: Appropriately interactive Lab / Micro Data Result Diagrams: 07/17/22 05:54 07/17/22 05:54 Labs: Laboratory Results - last 24 hr 07/15/22 13:55: Blood Type A POSITIVE, Antibody Screen NEGATIVE, Crossmatch See Detail 07/15/22 17:00: Urine Color Yellow, Urine Clarity Clear, Urine pH 8.0, Ur Specific [place] 1.010, Urine Protein 30 H, Urine Glucose (UA) Normal, Urine Ketones Negative, Urine Occult Blood Negative, Urine Nitrite Negative, Urine Bilirubin 1 H, Urine Urobilinogen Normal, Ur Leukocyte Esterase 25 H, Urine RBC 0 SEEN, Urine WBC 0-5 SEEN, Ur Squamous Epith Cells 0 SEEN, Urine Bacteria 1+, Urine Mucus 0 SEEN 07/15/22 22:30: Hgb 7.7 L, Hct 23.4 L 07/16/22 04:25: PT 44.6 H, INR 4.8 H* 07/16/22 04:25: WBC 5.9, RBC 2.24 L, Hgb 7.2 L, Hct 22.1 L, MCV 98.7 H, MCH 32.1 H, MCHC 32.6, RDW Std Deviation 62.4 H, RDW Coeff of Jennifer 17.7 H, Plt Count 127 L , MPV 9.6, Immature Gran % (Auto) 0.200, Neut % (Auto) 65.5, Lymph % (Auto) 18.9 L, [place] % (Auto) 13.0 H, Eos % (Auto) 1.7, Baso % (Auto) 0.7, Absolute Neuts (auto) 3.9, Absolute Lymphs (auto) 1.12, Nucleated RBC % 0 07/16/22 04:25: Sodium 137, Potassium 5.9 H, Chloride 99, Carbon Dioxide 32.0, Anion Gap 6, BUN 56 H, Creatinine 4.67 H, Estim Creat Clear Calc 13.17, Est GFR (MDRD) Af Amer 16 L, Est GFR (MDRD) Non-Af 13 L, BUN/Creatinine Ratio 12.0, Glucose 83, Calcium 8.2 L, Phosphorus 4.5, Magnesium 1.8 07/16/22 10:05: Hgb 7.1 L, Hct 21.7 L 07/16/22 10:05: Potassium 6.3 H* Charges/Coding Visit Charges Inpatient E&M: 16331 Init Hosp L3
[2022-07-16 15:06] LABS: Potassium 6.1 mmol/L (3.5-5.1)
[2022-07-16] MEDS: Tamsulosin HCl 0.4 MG Capsule PO (16:43)
[2022-07-16] MEDS: SEVELAMER CARBONATE 800 MG TABLET 1600 MG PO (16:43)
[2022-07-16] MEDS: Folic Acid/Vitamin B Comp W-C 1 Capsule 1 CAP PO (16:43)
[2022-07-16 16:55] LABS: Hematocrit 21.8 % (40-54); Hemoglobin 7.1 g/dL (13.0-16.5)
[2022-07-16 19:25] LABS: Potassium 5.6 mmol/L (3.5-5.1)
[2022-07-16] MEDS: 0.9% Saline Lock 10 ML Syringe IV (21:34)
[2022-07-16] MEDS: Ceftriaxone 1 GM/50 ML BAG IV (21:34)
[2022-07-16 22:36] LABS: Hematocrit 20.2 % (40-54); Hemoglobin 6.6 g/dL (13.0-16.5)
--- NOTE | 2022-07-16 23:43 | EKG12_ITS ---
Test Reason : change in rhythm Blood Pressure : / mmHG Vent. Rate : 090 BPM Atrial Rate : 088 BPM P-R Int : 000 ms QRS Dur : 158 ms QT Int : 462 ms P-R-T Axes : 000 -84 122 degrees QTc Int : 565 ms Ventricular-paced rhythm with frequent Premature ventricular complexes Biventricular pacemaker detected Abnormal ECG Confirmed by LILIBETH NIX, YANIRA ([id number]), business editor TRINA VIVAR ([id number]) on 07/18/2022 7:57:43 AM Referred By: Confirmed By:YANIRA MCELROY MD
[2022-07-17] VITALS (26 sets, daily range): BP systolic 90–141; BP diastolic 37–87; PULSE 64–78; RESP 14–22; TEMP 36.3–37.1; O2SAT 92–100
--- NOTE | 2022-07-17 00:45 | PCM.HOSP.N ---
Hospitalist Note Patient on telemetry with episode of irregular appearance of pacer spikes in odd location; however, follow-up EKG with pacer spikes prior to QRS complex. Also, repeat HH 6.6, will order 2 u PRBC. Patient usually per record HD TThSat; however, staff report intention for AM HD and possible EGD 07/17/22.
[2022-07-17] MEDS: Levothyroxine 75 MCG Tablet PO (05:28)
[2022-07-17 06:27] LABS: Absolute Lymphocyte Count 1.32 X10^3/uL (0.83-4.51); Absolute Neutrophil Count 6.1 X10^3/uL (2.0-7.7); Basophil# 0.04 X10^3/uL; Basophil% 0.5 % (0-1); Eosinophils% 2.3 % (0-5); Hematocrit 22.8 % (40-54); Hemoglobin 7.4 g/dL (13.0-16.5); Lymphocyte # 1.32 X10^3/ul (0.83-4.51); Lymphocyte % 15.2 % (19-41); Mean Corp Hgb Conc 32.5 g/dL (32-36); Mean Corpuscular Hgb 31.8 pg (27.0-32.0); Mean Corpuscular Volume 97.9 fL (80-94); Mean Platelet Vol. 9.7 fl (6.2-12.0); Monocyte# 1.04 X10^3/uL; NRBC Flagged by Analyzer 0 % (0-5); Neutrophil # 6.05 X10^3/uL (2.7-7.7); Neutrophil % 69.7 % (47-70); Platelet Count 140 K/mm3 (150-450); RBC Distribution Width CV 17.4 % (11.6-14.6); RBC Distribution Width SD 60.9 fl (35.1-43.9); Red Blood Count 2.33 M/mm3 (4.6-6.2); White Blood Count 8.7 K/mm3 (4.4-11.0)
[2022-07-17 07:06] LABS: International Normalized Ratio 4.3; Prothrombin Time (Protime)PT. 41.1 SECONDS (11.7-14.9)
[2022-07-17 07:13] LABS: ALB/GLOB Ratio 0.9 RATIO (0.9-2.4); AST(SGOT) 35 U/L (15-37); Alanine Aminotransfer ALT/SGPT 26 U/L (16-61); Albumin, Serum 2.8 g/dL (3.2-5.0); Alkaline Phosphatase 286 U/L (45-117); Anion Gap 8 (5-15); BUN 73 mg/dL (7-18); BUN/Creat Ratio 11.8 RATIO (10-20); Calcium,Total 8.5 mg/dL (8.5-10.1); Chloride 106 mmol/L (98-107); Creatinine, Serum 6.21 mg/dL (0.70-1.30); EST Glomerular Filtration Rate 10 mL/min (>60); Est Glom Filt Rate - Afr Amer 11 mL/min (>60); Globulin 3.1 g/dL (2.2-4.2); Glucose 89 mg/dL (74-106); Potassium 5.6 mmol/L (3.5-5.1); Protein, Total 5.9 g/dL (6.4-8.2); Sodium Level 141 mmol/L (136-145)
--- NOTE | 2022-07-17 07:28 | PCM.CONS.R ---
Assessment & Plan Assessment/Plan (1) ESRD (end stage renal disease) on dialysis: PLAN: pt usual dialysis qTues, Sat. last dialysis Sunday at [facility]. Dialysis today for persistent hyperkalemia, multiple blood transfusions. Next dialysis pending labs, volume status. (2) Hyperkalemia: PLAN: dialysis today (3) Acute on chronic anemia: PLAN: s/p 4units prbc (4) GI bleed: PLAN: s/p prbc, GI consulted, endoscopy (5) Debility: PLAN: acute on chronic due to severe anemia (6) Supratherapeutic INR: PLAN: on chronic anticoagulation for valve replacement (7) History of mitral valve repair: (8) History of aortic valve replacement: (9) Benign essential hypertension: (10) Cirrhosis: HPI Consult Data Date of Consult: 07/17/22 HPI Narrative Reason for Consultation: ESRD dialysis mgmt, hyperkalemia HPI Narrative: CHRISTIAN RICHMOND, is a 72 M with ESRD on dialysis twice a week qTues/Sat transferred from dialysis unit after treatment on 07/15 to [facility] ED via squad for altered mental status, progressive weakness past several days. He had weakness more than his baseline where his had difficulty getting him in and out of the car for dialysis. He does not recall details of events on 07/15. He was found to be anemic with hgb 5.4 with supratherapeutic INR of 5.9 on admit. He noticed dark stools but no melena or hematochezia until he had a BM in the ED on 07/15 where the stool was black. Stool for occult blood was positive. Last hgb at dialysis was 8.1g on 07/11 from his baseline of 10g. He is on iv iron and NARENDRA therapy with dialysis. He is on anticoagulation therapy for mechanical valves and dose was recently increased for subtherapeutic levels. He received blood transfusions on admit and hgb improved to 7.1g. He received another 2 unit of prbc for hgb 6.6g. INR 4.3 today. GI consulted with endoscopy on hold due to elevated potassium. Potassium was elevated at 6.1 and was treated medically. Repeat K 5.6 after kayexalate. Dialysis nurse communication technician was not able to be reached yesterday. No call back was returned to me. Potassium 5.6 today. Dialysis arranged for today and currently on dialysis. Proceeding without incident. Pt feeling better now after blood transfusion. Mentation back to [facility]. Pt spouse at bedside. [facility] Medical History Abnormal results of thyroid function studies Airway intubation performed without difficulty Anemia in chronic kidney disease Atrial flutter Bacterial endocarditis Benign essential hypertension Biventricular cardiac pacemaker in situ (~05/26/16) CAD (coronary artery disease) Cardiomyopathy in disease classified elsewhere Cardiopulmonary arrest with successful resuscitation 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, stage III (moderate) Chronic renal insufficiency CKD stage G5/A1, GFR <15 and albumin creatinine ratio <30 mg/g Coagulopathy COVID-19 Diffuse large b-cell lymphoma, extranodal and solid organ sites Dyspnea Encounter for long-term (current) use of high-risk medication Endocarditis due to Staphylococcus GI bleed Gout History of diffuse large B-cell lymphoma History of DVT (deep vein thrombosis) History of non-Hodgkin's lymphoma History of pacemaker History of rheumatic fever as a child Hyperthyroidism Hypothyroidism (acquired) Infectious endocarditis 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 MRSA (methicillin resistant Staphylococcus aureus) infection Non-rheumatic mitral regurgitation Non-rheumatic mitral valve stenosis Non-ST elevation (NSTEMI) myocardial infarction MIA (obstructive sleep apnea) Paroxysmal ventricular tachycardia Pure hypercholesterolemia Rheumatic aortic stenosis Rheumatic mitral insufficiency Sepsis TIA (transient ischemic attack) (~11/19/15) Home Medications tamsulosin 0.4 mg capsule 0.4 mg PO DINNER prostate 05/19/21 [History Last Taken 01/09/22] levothyroxine 75 mcg tablet 75 mcg PO DAILY thyroid 08/24/21 [History Last Taken 01/10/22] fluconazole 200 mg tablet 200 mg PO DAILY fungal infection 10/31/21 [History Last Taken 01/09/22] ondansetron HCl 4 mg tablet 4 mg PO Q6H PRN Nausea 10/31/21 [History Last Taken 01/10/22 04:15] rifaximin 550 mg tablet (Xifaxan) 550 mg PO BID diarrhea 01/10/22 [History Last Taken 01/09/22] vitamin B complex-vitamin C-folic acid 0.8 mg tablet (Nephro-Baltazar) 1 tab PO DAILY vitamin 01/10/22 [History Last Taken 01/09/22] doxycycline hyclate 100 mg tablet 100 mg PO BID #60 tabs 01/12/22 [Rx Last Taken Unknown] ferrous sulfate 325 mg (65 mg iron) tablet 325 mg PO QODAY SUPPLEMENT #0 tabs 01/12/22 [Rx Last Taken 01/09/22] albuterol sulfate 90 mcg/actuation aerosol inhaler (Ventolin HFA) 2 puff inhalation Q4H PRN shortness of breath or wheezing #18 grams 01/26/22 [Rx Last Taken Unknown] alprazolam 1 mg tablet (Xanax) 0.5 mg PO QHS Sleep 02/01/22 [History Last Taken Unknown] pantoprazole 40 mg tablet,delayed release 40 mg PO DAILY GERD 02/01/22 [History Last Taken Unknown] carvedilol 6.25 mg tablet (Coreg) 6.25 mg PO BID 04/04/22 [History Last Taken Unknown] levetiracetam 500 mg tablet (Keppra) 500 mg PO BID #60 tabs 04/24/22 [Rx Last Taken Unknown] levocarnitine 330 mg tablet (Carnitor) 330 mg PO BID #60 tabs 04/24/22 [Rx Last Taken Unknown] sevelamer HCl 800 mg tablet (Renagel) 1,600 mg PO TID 06/06/22 [History Last Taken Unknown] isosorbide mononitrate 30 mg tablet,extended release 24 hr 30 mg PO DAILY 07/15/22 [History Last Taken Unknown] warfarin 1 mg tablet 6 mg PO WETH blood thinner 07/15/22 [History Last Taken Unknown] warfarin 6 mg tablet 3 mg PO SUMOTUFRSA 07/15/22 [History Last Taken Unknown] Allergy/AdvReac Type Severity Reaction Status Date / Time No Known Allergies Allergy Verified 07/15/22 11:51 Family History Father CAD (coronary artery disease) CABG Brother CAD (coronary artery disease) CABG Mother Diabetes Sister Breast cancer Diabetes Sister Cancer breast Diabetes Surgical History dual chamber pacemaker implantation (~10/2010) History of aortic valve replacement (~08/2003) History of appendectomy History of atrioventricular chiquita ablation History of cholecystectomy History of evacuation of hematoma History of heart valve replacement with mechanical valve History of heart valve replacement with mechanical valve History of mechanical aortic valve replacement (~1986) History of mitral valve repair (~08/2003) Social History household members: spouse housing: house current occupational status: retired current occupational exposures/hazards: No history of recent travel: No Smoking Status: Never smoker alcohol intake: never substance use type: does not use caffeine: No what type of physical activity do you participate in: weight training and other details: Nustep frequency: 3-4 times per week duration: 45-60 minutes/day seatbelt use: always do you feel safe at home: Yes ROS Review of Systems ROS Unobtainable: other Details: more responsive today compared to Sunday. Mentation back to baseline. Pt does not recall events from Sunday Constitutional Constitutional: Reports malaise and weakness; Denies chills or fever(s) Eyes Eyes: Denies loss of vision ENT HEENT: Denies nasal congestion Cardiovascular Cardiovascular: Denies chest pain, dyspnea on exertion or edema Respiratory/Chest Respiratory/Chest: Denies shortness of breath at rest Gastrointestinal Gastrointestinal: Reports other Details: dark stools at home, melena at ER on admit ; Denies abdominal pain, hematochezia or vomiting Genitourinary Genitourinary: Denies change in urinary stream Musculoskeletal Musculoskeletal: Reports muscle weakness and other Details: denied falls Neurologic Neurologic: Reports weakness and other Details: chronic weakness but worse past several days, unable to drive to dialysis on Sunday Psychiatric Psychiatric: Reports other Details: delirium on admission resolved today ; Denies confusion Hematologic/Lymphatic Hematologic/Lymphatic: Reports anemia, easy bleeding, easy bruising and other Details: on chronic anticoagulation Physical Exam Const alert and oriented x3 General Appearance: well developed Nutritional Appearance: thin HEENT normocephalic Eyes EOMs intact bilaterally Neck no JVD Resp clear to auscultation bilaterally Cardio regular rate Cardio Narrative: paced GI non-tender and non-distended Auscultation: normoactive bowel sounds Palpation: soft Extremity no clubbing, cyanosis or edema Skin no rashes or lesions noted Neuro Sensorium / Orientation: awake and alert Psych cooperative Lab / Micro Data Result Diagrams: 07/17/22 05:54 07/17/22 05:54 Labs: Laboratory Results - last 24 hr 07/15/22 13:55: Crossmatch See Detail 07/16/22 10:05: Hgb 7.1 L, Hct 21.7 L 07/16/22 10:05: Potassium 6.3 H* 07/16/22 14:28: Potassium 6.1 H* 07/16/22 16:39: Hgb 7.1 L, Hct 21.8 L 07/16/22 18:25: Potassium 5.6 H 07/16/22 22:17: Hgb 6.6 L, Hct 20.2 L 07/17/22 05:54: PT 41.1 H, INR 4.3 H* 07/17/22 05:54: WBC 8.7, RBC 2.33 L, Hgb 7.4 L, Hct 22.8 L, MCV 97.9 H, MCH 31.8, MCHC 32.5, RDW Std Deviation 60.9 H, RDW Coeff of Jennifer 17.4 H, Plt Count 140 L, MPV 9.7, Immature Gran % (Auto) 0.300, Neut % (Auto) 69.7, Lymph % (Auto) 15.2 L, Evans % (Auto) 12.0 H, Eos % (Auto) 2.3, Baso % (Auto) 0.5, Absolute Neuts (auto) 6.1, Absolute Lymphs (auto) 1.32, Nucleated RBC % 0 07/17/22 05:54: Sodium 141, Potassium 5.6 H, Chloride 106, Carbon Dioxide 27.0, Anion Gap 8, BUN 73 H, Creatinine 6.21 H, Estim Creat Clear Calc 9.90, Est GFR (MDRD) Af Amer 11 L, Est GFR (MDRD) Non-Af 10 L, BUN/Creatinine Ratio 11.8, Glucose 89, Calcium 8.5, Phosphorus 6.0 H, Magnesium 2.0, Total Bilirubin 0.80, AST 35, ALT 26, Alkaline Phosphatase 286 H, Total Protein 5.9 L, Albumin 2.8 L, Globulin 3.1, Albumin/Globulin Ratio 0.9
[2022-07-17] MEDS: levETIRAcetam 500 MG Tablet PO ×2 (08:59→22:18)
[2022-07-17] MEDS: rifAXIMin 550 MG Tablet PO ×2 (08:59→22:18)
--- NOTE | 2022-07-17 09:20 | PN.HOSP_ITS ---
Subjective Subjective Feels well. Objective Data Objective Data Vital Signs: Vital Signs Temp Pulse Resp BP Pulse Ox O2 Del Method 36.8 C 70 16 134/53 H 95 Room Air 07/17/22 08:15 07/17/22 08:15 07/17/22 08:15 07/17/22 08:15 07/17/22 08:15 07/17/22 08:15 Oxygen Delivery Method Room Air Weight: 73.4 kg Body Mass Index (BMI) 25.4 Intake & Output: Intake and Output for Last 24 Hours 07/15/22 07/16/22 07/17/22 23:59 23:59 23:59 Intake Total 885 / 985 1422.17 / 1572.17 577.17 / 577.17 Output Total 100 / 100 Balance 885 / 885 1322.17 / 1472.17 577.17 / 577.17 Lab / Micro Data Result Diagrams: 07/17/22 05:54 07/17/22 05:54 Labs: Laboratory Results - last 24 hr 07/15/22 13:55: Crossmatch See Detail 07/16/22 10:05: Hgb 7.1 L, Hct 21.7 L 07/16/22 10:05: Potassium 6.3 H* 07/16/22 14:28: Potassium 6.1 H* 07/16/22 16:39: Hgb 7.1 L, Hct 21.8 L 07/16/22 18:25: Potassium 5.6 H 07/16/22 22:17: Hgb 6.6 L, Hct 20.2 L 07/17/22 05:54: PT 41.1 H, INR 4.3 H* 07/17/22 05:54: WBC 8.7, RBC 2.33 L, Hgb 7.4 L, Hct 22.8 L, MCV 97.9 H, MCH 31.8, MCHC 32.5, RDW Std Deviation 60.9 H, RDW Coeff of Jennifer 17.4 H, Plt Count 140 L, MPV 9.7, Immature Gran % (Auto) 0.300, Neut % (Auto) 69.7, Lymph % (Auto) 15.2 L, [place] % (Auto) 12.0 H, Eos % (Auto) 2.3, Baso % (Auto) 0.5, Absolute Neuts (auto) 6.1, Absolute Lymphs (auto) 1.32, Nucleated RBC % 0 07/17/22 05:54: Sodium 141, Potassium 5.6 H, Chloride 106, Carbon Dioxide 27.0, Anion Gap 8, BUN 73 H, Creatinine 6.21 H, Estim Creat Clear Calc 9.90, Est GFR (MDRD) Af Amer 11 L, Est GFR (MDRD) Non-Af 10 L, BUN/Creatinine Ratio 11.8, Glucose 89, Calcium 8.5, Phosphorus 6.0 H, Magnesium 2.0, Total Bilirubin 0.80, AST 35, ALT 26, Alkaline Phosphatase 286 H, Total Protein 5.9 L, Albumin 2.8 L, Globulin 3.1, Albumin/Globulin Ratio 0.9 Physical Exam Const alert and no apparent distress Neck no lymphadenopathy Resp normal respiratory effort, no retractions, no use of accessory muscles and clear to auscultation bilaterally Cardio regular rate, regular rhythm, S1 normal heart sound and S2 normal heart sound GI normal to inspection, nondistended, normoactive bowel sounds, soft to palpation, non-tender and non-distended Assessment & Plan Assessment/Plan (1) GI bleed: PLAN: -Patient with history of peptic ulcer disease and also mucosal bleeding in the colon no did on scopes in 2018 -Aspirin was discontinued at that time -Unclear if this is upper or lower at this time however would highly suspect upper given history -Cycle H&H -Continue Protonix drip with bolus -Continue octreotide drip -Continue to hold Coumadin but will hold off on reversing INR at this time with his mechanical valves as I would not want to thrombose his valve -Repeat INR in a.m.--> trending down -With history of liver disease will cover for SBP with ceftriaxone 2 g daily -Plan is for scope later today -GI is following-appreciate input (2) Acute on chronic anemia: PLAN: -Chronic anemia from chronic renal disease -Hemoglobin at baseline was 12.4 on most recent CBC from May -5.4 on admission -Transfused 2 units packed red blood cells on 01/15/2022 -Hemoglobin stable at 7.1-7.2 after transfusion -Cycle H&H's every 6 hours -Continue home oral iron supplementation (3) Supratherapeutic INR: PLAN: -Patient on anticoagulation for mechanical valves -Goal INR 2.5-3.5 -Will not reverse anticoagulation given his history of mechanical valves however will hold Coumadin at this time and repeat INR in a.m. -May need to reverse if bleeding becomes more significant however at this point I suspect a slow trickle over time given his current symptoms--> he seems to be tolerating this hemoglobin without any significant issues and I suspect this bleed to be slow -INR down from 5.9-4.8 -Continue to hold Coumadin (4) Hyperkalemia: PLAN: -5.9 with a repeat of 6.3 -Suspect upper secondary to blood transfusion -Was 4.2 on admission -Kayexalate 30 mg today and repeat in a.m. -Patient is due for dialysis on Sunday (5) Acute metabolic encephalopathy: PLAN: resolved PLAN: Plan Acute metabolic encephalopathy -Resolved End-stage renal disease on HD -TTS dialysis -Consult nephrology--> Dr. Sharron Calderon notified -Continue phosphate binder Liver cirrhosis -Etiology is unclear -Patient denies any previous alcohol use -Continue home rifaximin -Currently appears to be compensated and I doubt this is the etiology of his confusion at this time -Ultrasound done at [facility] on 02/2022 to assess for hepatocellular carcinoma and it was negative for any nodules or masses -Continue rifaximin Hypertension -Blood pressures improved from admission but still within normal range -Continue to hold carvedilol -Continue to hold isosorbide mononitrate GERD -Hold oral Protonix -Use drip at this time BPH -Continue Flomax Hypothyroidism -Continue levothyroxine -TSH was 1.42 on 01/11/2022 Possible seizure history -Continue Keppra -Continue levocarnitine -Follows with Dr. Holley at baseline Insomnia -Takes Xanax 0.5 mg at at bedtime for sleep as needed -We will hold at this time with soft blood pressures -Melatonin made available DVT prophylaxis -Remain supratherapeutic CODE STATUS -CODE STATUS changed to full code, is at bedside and they both agree that his CODE STATUS should be full code at this time. Charges/Coding Visit Charges Inpatient E&M: 51085 Subs Hosp L2
--- NOTE | 2022-07-17 10:45 | CASEMGMT ---
GIO HEARN Face to Face with patient for initial transition planning/care coordination assessment. RN CM introduced self and role at [facility]. Patient lying in bed, alert and oriented. Patient willing to participate in assessment and is able to answer all questions appropriately. Care providers, pharmacy, and demographics verified. Patient wishes to discharge home, with possible HHC vs Outpatient therapy pending progress. Patient states he has no further needs or concerns at this time. CM to follow for discharge planning needs that may arise. PCP: Demetrio Specialists: Kvng, archivist political history; Mitchel, sales and service agent; Johnny, oncologist; Pako, push bench operator helper; Leydi, archivist political history Preferred Pharmacy: [facility] Insurance: [facility], [place] Prescription Benefit: yes Living Will/HPOA: yes, Bre Amador LNOK: Living Arrangements: Patient lives in a condo with 3 steps and railing to enter the home. Patient states he is independent at home. Transportation: self, DME/HHC: Patient states he has shower chair, raised toilet, cane, walker, grab bars, lift chair, walker, pulse ox, BP cuff, adjustable bed, and electric scooter at home. Patient has been to [facility] in the past. Will monitor progress with therapy for recommendations, anticipate HHC vs Outpatient therapy. Disposition Plan: Patient to discharge home with family support and follow-up plans in place. Will monitor for HHC vs Outpatient therapy. Erica MARIE, RN, CM
--- NOTE | 2022-07-17 11:30 | EGD_PTH ---
PATIENT: CHRISTIAN RICHMOND LOC: [facility] U#:[id number] AGE/SX: 72/M ROOM: [facility] RE07/15/[address]: Dr. Pako Valadez DO : 1950 BED: 1 DIS: 07/18/2022 SPEC #: [id number] RECD: 07/17/22 16:56 STATUS: FRANCISCO PATTERSON #: [id number] JESSICA: 07/17/22 11:[address]: Kody Zheng DEPT: SURGICAL PATHOLOGY RECD BY: Teena Lopez ENTERED: 07/18/22 08:03 SP TYPE: EGD BIOPSY OTHR DR: DO Dr. Pako Doan DO Dr. Kathryn Lee, DO Dr. Vinny Atkinson MD Tissues: A - Duodenum, NOS B - Gastric mucous membrane C - Gastric mucous membrane Procedures: Surgery Specimen Level IV Comments: @ Ordering doctor for SURI edited from to @ by FROYLAN at 07/18/22 1027 @ Submitting doctor edited from to @ by RGOOD at 07/18/22 1027 HEADER OPERATION: EGD with biopsies, APC cautery (MAC) PRE-OP DIAGNOSIS: Anemia TISSUE SUBMITTED: A ? Duodenum biopsy, B ? Gastric body biopsy, C ? Gastric cardia biopsy MICROSCOPIC DIAGNOSIS A. Duodenum, biopsy: No pathologic change. B. Gastric body, biopsy: Chronic gastritis. See comment. C. Gastric cardia, biopsy: Chronic gastritis. AM:nellie 07/19/2022 COMMENT B. The results of immunohistochemistry for Helicobacter pylori will be reported separately ([id number]). MICROSCOPIC DESCRIPTION Slides are reviewed. GROSS DESCRIPTION A - Received in fixative is one container labeled with the patient's name and designated duodenum biopsy. The specimen consists of one irregular fragment of light gayle soft tissue that measures 0.4 x 0.4 x 0.1 cm. The specimen is totally submitted in one cassette. B - Received in fixative is one container labeled with the patient's name and designated biopsy gastric body. The specimen consists of two irregular fragments of light gayle soft tissue that in aggregate measure 0.5 x 0.3 x 0.1 cm. The specimen is totally submitted in one cassette. C - Received in fixative is one container labeled with the patient's name and designated biopsy gastric cardia. The specimen consists of two irregular fragments of light gayle soft tissue that in aggregate measure 0.5 x 0.4 x 0.1 cm. The specimen is totally submitted in one cassette. / SJ:rg 07/18/2022 TC:5 CPT: 58009 x3
--- NOTE | 2022-07-17 11:30 | IMM_PTH ---
PATIENT: CHRISTIAN RICHMOND LOC: [facility] U#:[id number] AGE/SX: 72/M ROOM: [facility] RE07/15/[address]: Dr. Pako Valadez DO : 1950 BED: 1 DIS: 07/18/2022 SPEC #: [id number] RECD: 07/18/22 12:30 STATUS: FRANCISCO RELa #: [id number] JESSICA: 07/17/22 11:[address]: Kody Zheng DEPT: IMMUNOHISTOCHEMISTRY RECD BY: Marce Graham ENTERED: 07/18/22 12:31 SP TYPE: IMMUNO OTHR DR: DO Dr. Pako Doan DO Dr. Kathryn Lee, DO Dr. Scott Hannan, MD Tissues: B - Stomach, NOS Procedures: H Pylori (initial) PHYSICIAN & INSTITUTION [place] [id number] SPECIMEN INFORMATION: Tissue Source: B ? Gastric body biopsy Clinical Info: Lily Specimen Number: [id number] CPT code: 17368 METHODOLOGY: Deparaffinized sections of prefer/formalin-fixed tissue or PAP/DQ stained slides are incubated with monoclonal/polyclonal antibodies/oligonucleotide probes. Localization is made via biotin free immunoperoxidase method. Appropriate controls are performed and reacted as expected. Results on target cell population are indicated in the following table: RESULTS: ANTIBODY / CLONE RESULT Block B H Pylori (polyclonal) negative These tests were developed and their performance characteristics determined by [facility]. They may not have been cleared or approved by the U.S. Food and Drug Administration. The FDA has determined that such clearance or approval is not necessary. The above immunohistochemical/dualISH markers are ordered and reviewed by the Pathologist. INTERPRETATION: B. Gastric body, biopsy: Negative for Helicobacter pylori organisms. AM:nellie 07/19/2022
--- NOTE | 2022-07-17 15:29 | DIALYSIS ---
Hemodialysis x4 hours completed at 1410 on a 2K bath, tolerated well, UF 1600mL, accessed via RCW tunneled dialysis catheter, worked well, next tx per nephrology
[2022-07-17 15:33] LABS: Pathologist Review Reviewed
--- NOTE | 2022-07-17 16:51 | OP.CCLET_ITS ---
08/24/2022 Vinny Atkinson Re : Upper GI endoscopy procedure for Ravindra Amador Dear Demetrio This procedure was performed on Sunday, July 17, 2022. My impressions and recommendations are as follows: Impressions : - Normal esophagus. - Medium-sized hiatal hernia. - 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 gastropathy. Biopsied. - Gastric antral vascular ectasia with bleeding. Treated with argon plasma coagulation (APC). - Duodenitis. Biopsied. Recommendations : - Return patient to [facility] for [facility] care. - Full liquid diet today. - Give a beta ivana with dosage titrated by the heart rate. - Use Protonix (pantoprazole) 40 mg PO BID for 8 weeks. - Continue present medications. My findings are described in the full procedure note, which is enclosed. If I can be of further assistance, please feel free to contact me at . Sincerely, Kody Zheng, 07/17/2022 4:51:21 PM This report has been signed electronically.
--- NOTE | 2022-07-17 16:51 | OP.EGD_ITS ---
Patient Name: Ravindra Amador Procedure Date: 07/17/2022 4:06 PM Date of : 1950 Age: 72 Procedure: Upper GI endoscopy Indications: Iron deficiency anemia, Melena Providers: Kody Zheng DO Medicines: Monitored Anesthesia Care Patient Profile: This is a 72 year old male. Refer to note in patient chart for documentation of history and physical. Patient has symptoms of chronic dyspepsia and acute nausea. Complications: No immediate complications. Procedure: Pre-Anesthesia Assessment: - Prior to the procedure, a History and Physical was performed, and patient medications and allergies were reviewed. The patient is competent. The risks and benefits of the procedure and the sedation options and risks were discussed with the patient. All questions were answered and informed consent was obtained. Patient identification and proposed procedure were verified by the physician in the pre-procedure area. Mental Status Examination: alert and oriented. Airway Examination: normal oropharyngeal airway and neck mobility. Respiratory Examination: clear to auscultation. CV Examination: normal. Prophylactic Antibiotics: The patient does not require prophylactic antibiotics. Prior Anticoagulants: The patient has taken no previous anticoagulant or antiplatelet agents. ASA Grade Assessment: II - A patient with mild systemic disease. After reviewing the risks and benefits, the patient was deemed in satisfactory condition to undergo the procedure. The anesthesia plan was to use moderate sedation / analgesia (conscious sedation). Immediately prior to administration of medications, the patient was re-assessed for adequacy to receive sedatives. The heart rate, respiratory rate, oxygen saturations, blood pressure, adequacy of pulmonary ventilation, and response to care were monitored throughout the procedure. The physical status of the patient was re-assessed after the procedure. After obtaining informed consent, the endoscope was passed under direct vision. Throughout the procedure, the patient's blood pressure, pulse, and oxygen saturations were monitored continuously. The gastroscope was introduced through the mouth, and advanced to the second part of duodenum. The upper GI endoscopy was accomplished without difficulty. The patient tolerated the procedure well. Scope In: 4:23:22 PM Scope Out: 4:39:28 PM Total Procedure Duration Time 0 hours 16 minutes 6 seconds Findings: The examined esophagus was normal. A medium-sized hiatal hernia was present. Severe portal hypertensive gastropathy was found in the cardia, in the gastric fundus, in the gastric body, on the anterior wall of the stomach, on the greater curvature of the stomach, on the lesser curvature of the stomach, on the posterior wall of the stomach, at the incisura and in the gastric antrum. Biopsies were taken with a cold forceps for histology. Verification of patient identification for the specimen was done. Estimated blood loss was minimal. 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 Coagulation for hemostasis using argon plasma at 0.3 liters/minute and 20 schaffer was successful. Estimated blood loss was minimal. Patchy moderate inflammation characterized by congestion (edema), erosions and granularity was found in the duodenal bulb. Biopsies were taken with a cold forceps for histology. Verification of patient identification for the specimen was done. Estimated blood loss was minimal. Impression: - Normal esophagus. - Medium-sized hiatal hernia. - 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 gastropathy. Biopsied. - Gastric antral vascular ectasia with bleeding. Treated with argon plasma coagulation (APC). - Duodenitis. Biopsied. Recommendation: - [facility]. - Full liquid diet today. - Give a beta ivana with dosage titrated by the heart rate. - Use Protonix (pantoprazole) 40 mg PO BID for 8 weeks. - Continue present medications. Procedure Code(s): --- Professional --- 18983, 59, Esophagogastroduodenoscopy, flexible, transoral; with control of bleeding, any method 02287, 51, Esophagogastroduodenoscopy, flexible, transoral; with biopsy, single or multiple CPT copyright 2017 [employer]. All rights reserved. The codes documented in this report are preliminary and upon cattle farmer review may be revised to meet current compliance requirements. Kody Zheng DO 07/17/2022 4:51:21 PM This report has been signed electronically. Number of Addenda: 1 Note Initiated On: 07/17/2022 4:06 PM Addendum Number: 1 Addendum Date: 08/24/2022 6:03:12 AM MAC was used as sedation for this procedure. Kody Zheng DO 08/24/2022 6:03:15 AM This report has been signed electronically.
[2022-07-17] MEDS: Acetaminophen 325 MG Tablet 650 MG PO (18:31)
[2022-07-17] MEDS: SEVELAMER CARBONATE 800 MG TABLET 1600 MG PO (18:32)
[2022-07-17] MEDS: Folic Acid/Vitamin B Comp W-C 1 Capsule 1 CAP PO (18:34)
[2022-07-17] MEDS: Ceftriaxone 1 GM/50 ML BAG IV (22:14)
[2022-07-18 03:00] VITALS: PULSE 70
[2022-07-18 03:30] VITALS: BP 115/52; PULSE 70; RESP 16; TEMP 36.1; O2SAT 97
[2022-07-18 04:57] LABS: Absolute Lymphocyte Count 0.97 X10^3/uL (0.83-4.51); Absolute Neutrophil Count 4.5 X10^3/uL (2.0-7.7); Basophil# 0.04 X10^3/uL; Basophil% 0.6 % (0-1); Eosinophil# 0.39 X10^3/uL; Eosinophils% 5.8 % (0-5); Hematocrit 24.8 % (40-54); Hemoglobin 8.1 g/dL (13.0-16.5); Lymphocyte # 0.97 X10^3/ul (0.83-4.51); Lymphocyte % 14.4 % (19-41); Mean Corp Hgb Conc 32.7 g/dL (32-36); Mean Corpuscular Hgb 31.3 pg (27.0-32.0); Mean Corpuscular Volume 95.8 fL (80-94); Mean Platelet Vol. 9.6 fl (6.2-12.0); Monocyte% 11.9 % (0-10); NRBC Flagged by Analyzer 0 % (0-5); Neutrophil # 4.49 X10^3/uL (2.7-7.7); Neutrophil % 66.9 % (47-70); Platelet Count 133 K/mm3 (150-450); RBC Distribution Width CV 16.8 % (11.6-14.6); RBC Distribution Width SD 57.6 fl (35.1-43.9); Red Blood Count 2.59 M/mm3 (4.6-6.2); White Blood Count 6.7 K/mm3 (4.4-11.0)
[2022-07-18 05:05] LABS: International Normalized Ratio 3.4; Prothrombin Time (Protime)PT. 34.4 SECONDS (11.7-14.9)
[2022-07-18 05:21] LABS: ALB/GLOB Ratio 0.8 RATIO (0.9-2.4); AST(SGOT) 39 U/L (15-37); Alanine Aminotransfer ALT/SGPT 26 U/L (16-61); Albumin, Serum 2.6 g/dL (3.2-5.0); Alkaline Phosphatase 275 U/L (45-117); Anion Gap 9 (5-15); BUN 30 mg/dL (7-18); BUN/Creat Ratio 7.8 RATIO (10-20); Calcium,Total 7.4 mg/dL (8.5-10.1); Chloride 95 mmol/L (98-107); Creatinine, Serum 3.87 mg/dL (0.70-1.30); EST Glomerular Filtration Rate 16 mL/min (>60); Est Glom Filt Rate - Afr Amer 20 mL/min (>60); Estimated Creatinine Clearance 15.89 ml/min; Globulin 3.1 g/dL (2.2-4.2); Glucose 83 mg/dL (74-106); Potassium 3.9 mmol/L (3.5-5.1); Protein, Total 5.7 g/dL (6.4-8.2); Sodium Level 133 mmol/L (136-145)
[2022-07-18] MEDS: Levothyroxine 75 MCG Tablet PO (06:13)
[2022-07-18 07:07] VITALS: PULSE 73
[2022-07-18 07:08] VITALS: O2SAT 92
--- NOTE | 2022-07-18 08:03 | PCM.PN.HOSP ---
Subjective Subjective Feels well. No new issues. Objective Data Objective Data Vital Signs: Vital Signs Temp Pulse Resp BP Pulse Ox O2 Del Method 36.1 C L 70 16 115/52 L 97 Room Air 07/18/22 03:30 07/18/22 03:30 07/18/22 03:30 07/18/22 03:30 07/18/22 03:30 07/18/22 04:00 Oxygen Delivery Method Room Air Weight: 72.6 kg Body Mass Index (BMI) 25.4 Intake & Output: Intake and Output for Last 24 Hours 07/16/22 07/17/22 07/18/22 23:59 23:59 23:59 Intake Total 1422.17 / 1572.17 1468.17 / 1468.17 100 / 100 Output Total 100 / 100 1500 / 1700 300 / 300 Balance 1322.17 / 1472.17 -31.83 / -231.83 -200 / -200 Lab / Micro Data Result Diagrams: 07/18/22 03:58 07/18/22 03:58 Labs: Laboratory Results - last 24 hr 07/15/22 12:04: Diff Path Review Reviewed 07/15/22 13:55: Crossmatch See Detail 07/18/22 03:58: WBC 6.7, RBC 2.59 L, Hgb 8.1 L, Hct 24.8 L, MCV 95.8 H, MCH 31.3, MCHC 32.7, RDW Std Deviation 57.6 H, RDW Coeff of Jennifer 16.8 H, Plt Count 133 L, MPV 9.6, Immature Gran % (Auto) 0.400, Neut % (Auto) 66.9, Lymph % (Auto) 14.4 L, [place] % (Auto) 11.9 H, Eos % (Auto) 5.8 H, Baso % (Auto) 0.6, Absolute Neuts (auto) 4.5, Absolute Lymphs (auto) 0.97, Nucleated RBC % 0 07/18/22 03:58: PT 34.4 H, INR 3.4 07/18/22 03:58: Sodium 133 L, Potassium 3.9, Chloride 95 L, Carbon Dioxide 29.0, Anion Gap 9, BUN 30 H, Creatinine 3.87 H, Estim Creat Clear Calc 15.89, Est GFR (MDRD) Af Amer 20 L, Est GFR (MDRD) Non-Af 16 L, BUN/Creatinine Ratio 7.8 L, Glucose 83, Calcium 7.4 L, Total Bilirubin 0.80, AST 39 H, ALT 26, Alkaline Phosphatase 275 H, Total Protein 5.7 L, Albumin 2.6 L, Globulin 3.1, Albumin/Globulin Ratio 0.8 L Physical Exam Const alert and no apparent distress Resp normal respiratory effort, no retractions, no use of accessory muscles and clear to auscultation bilaterally Cardio regular rate, regular rhythm, S1 normal heart sound and S2 normal heart sound GI normal to inspection, nondistended, normoactive bowel sounds, soft to palpation, non-tender and non-distended Extremity normal to inspection Neuro oriented x3 Assessment & Plan Assessment/Plan (1) GI bleed: PLAN: -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 -Patient with history of peptic ulcer disease and also mucosal bleeding in the colon no did on scopes in 2018 -Aspirin was discontinued at that time -Unclear if this is upper or lower at this time however would highly suspect upper given history -Cycle H&H -Continue Protonix drip with bolus -Continue octreotide drip -Continue to hold Coumadin but will hold off on reversing INR at this time with his mechanical valves as I would not want to thrombose his valve -Repeat INR in a.m.--> trending down -With history of liver disease will cover for SBP with ceftriaxone 2 g daily -GI is following-appreciate input (2) Acute on chronic anemia: PLAN: -Chronic anemia from chronic renal disease -Hemoglobin at baseline was 12.4 on most recent CBC from May -5.4 on admission -Transfused 2 units packed red blood cells on 01/15/2022 -Hemoglobin stable at 7.1-7.2 after transfusion -Cycle H&H's every 6 hours -Continue home oral iron supplementation (3) Supratherapeutic INR: PLAN: -Patient on anticoagulation for mechanical valves -Goal INR 2.5-3.5 -Will not reverse anticoagulation given his history of mechanical valves however will hold Coumadin at this time and repeat INR in a.m. -May need to reverse if bleeding becomes more significant however at this point I suspect a slow trickle over time given his current symptoms--> he seems to be tolerating this hemoglobin without any significant issues and I suspect this bleed to be slow -INR down (4) Hyperkalemia: PLAN: -5.9 with a repeat of 6.3 -Suspect upper secondary to blood transfusion -Was 4.2 on admission -Kayexalate 30 mg today and repeat in a.m. -Patient is due for dialysis on Sunday (5) Acute metabolic encephalopathy: PLAN: resolved (6) History of aortic valve replacement: PLAN: Resume warfarin. We will have the patient continue with warfarin at 3mg daily. Previously, patient was on warfarin 3 mg Sunday, Sunday, Sunday, Sunday and Sunday and then 6 mg on Sunday and . PLAN: Plan Acute metabolic encephalopathy -Resolved End-stage renal disease on HD -Sun dialysis -Consult nephrology--> Dr. Sharron Calderon notified -Continue phosphate binder Did have hemodialysis on the Liver cirrhosis -Etiology is unclear -Patient denies any previous alcohol use -Continue home rifaximin -Currently appears to be compensated and I doubt this is the etiology of his confusion at this time -Ultrasound done at [facility] on 02/2022 to assess for hepatocellular carcinoma and it was negative for any nodules or masses -Continue rifaximin Hypertension -Blood pressures improved from admission but still within normal range -Continue to hold carvedilol -Continue to hold isosorbide mononitrate GERD -Hold oral Protonix -Use drip at this time BPH -Continue Flomax Hypothyroidism -Continue levothyroxine -TSH was 1.42 on 01/11/2022 Possible seizure history -Continue Keppra -Continue levocarnitine -Follows with Dr. Holley at baseline Insomnia -Takes Xanax 0.5 mg at at bedtime for sleep as needed -We will hold at this time with soft blood pressures -Melatonin made available DVT prophylaxis -Remain supratherapeutic CODE STATUS -CODE STATUS changed to full code, is at bedside and they both agree that his CODE STATUS should be full code at this time.
[2022-07-18 09:12] VITALS: BP 121/58; PULSE 70; RESP 14; TEMP 36.6; O2SAT 93
[2022-07-18] MEDS: SEVELAMER CARBONATE 800 MG TABLET 1600 MG PO ×2 (09:24→11:15)
[2022-07-18] MEDS: levETIRAcetam 500 MG Tablet PO (09:25)
[2022-07-18] MEDS: rifAXIMin 550 MG Tablet PO (09:25)
[2022-07-18] MEDS: Folic Acid/Vitamin B Comp W-C 1 Capsule 1 CAP PO (09:32)
--- NOTE | 2022-07-18 10:44 | DCINST_ITS ---
Discharge Instructions Diet Discharge Diet: Low fat / Low cholesterol Activity Discharge Activity: Return to Normal Activity Dressing / Incision Call your doctor if you observe: - (blood in stools. dark tarry stools. ) Follow Up Care Test Results: Test results from this visit will be discussed in further detail at your follow- up appointment, if applicable. Discharge Plan Admission Admit Date/Time: 07/15/22 18:52 Primary Reason for Your Visit: GI bleed. hyperkalemia Attending Provider: Pako Valadez Primary Care Provider: Vinny Atkinson Consulting Providers: Sharron Calderon ; Nayeli Calderon Instructions Additional Instructions / Restrictions: Also center will reach out to you if you are to have dialysis again this week such as on . Discharge Orders/Prescriptions Prescriptions: New warfarin 6 mg tablet 3 mg PO DAILY Qty: 30 0RF Continued alprazolam [Xanax] 1 mg tablet 0.5 mg PO QHS levetiracetam [Keppra] 500 mg tablet 500 mg PO BID Qty: 60 5RF levocarnitine [Carnitor] 330 mg tablet 330 mg PO BID Qty: 60 5RF Rx Instructions: must administer with a meal/food albuterol sulfate [Ventolin HFA] 90 mcg/actuation HFA aerosol inhaler 2 puff inhalation Q4H PRN (Reason: shortness of breath or wheezing) Qty: 18 6RF sevelamer HCl [Renagel] 800 mg tablet 1,600 mg PO TID Rx Instructions: must administer with a meal/food tamsulosin 0.4 mg capsule 0.4 mg PO DINNER levothyroxine 75 mcg tablet 75 mcg PO DAILY Nephro-Baltazar 0.8 mg tablet 1 tab PO DAILY Label Comments: TAKE 1 TABLET BY MOUTH EVERY DAY Xifaxan 550 mg Tablet 550 mg PO BID ferrous sulfate 325 mg (65 mg iron) Tablet 325 mg PO QODAY Qty: 0 0RF Rx Instructions: 2 hrs before doxycycline carvedilol [Coreg] 6.25 mg tablet 6.25 mg PO BID Rx Instructions: HOLD IF SYSTOLIC BP <100 isosorbide mononitrate 30 mg tablet extended release 24 hr 30 mg PO DAILY Changed pantoprazole 40 mg tablet,delayed release (DR/EC) 40 mg PO BIDCM Qty: 60 0RF Discontinued fluconazole 200 mg tablet 200 mg PO DAILY ondansetron HCl 4 mg tablet 4 mg PO Q6H PRN (Reason: Nausea) doxycycline hyclate 100 mg tablet 100 mg PO BID Qty: 60 0RF warfarin 6 mg tablet 3 mg PO SUMOTUFRSA Protocol: Dose Management Condition: Sunday Dose/Route: 3 mg Instruction: 3 x 1 mg tablets Condition: Sunday Dose/Route: 3 mg Instruction: 3 x 1 mg tablets Condition: Sunday Dose/Route: 3 mg Instruction: 3 x 1 mg tablets Condition: Sunday Dose/Route: 6 mg Instruction: 1 x 6 mg tablet Condition: Dose/Route: 6 mg Instruction: 1 x 6 mg tablet Condition: Sunday Dose/Route: 3 mg Instruction: 3 x 1 mg tablets Condition: Sunday Dose/Route: 3 mg Instruction: 3 x 1 mg tablets Protocol Text: Adjustment Start Date: Sunday07/05/22 INR Value: 3.0 INR Date: 07/05/22 Recheck Date: 07/26/22 warfarin 1 mg tablet 6 mg PO WETH Protocol: Dose Management Condition: Sunday Dose/Route: 3 mg Instruction: 3 x 1 mg tablets Condition: Sunday Dose/Route: 3 mg Instruction: 3 x 1 mg tablets Condition: Sunday Dose/Route: 3 mg Instruction: 3 x 1 mg tablets Condition: Sunday Dose/Route: 6 mg Instruction: 1 x 6 mg tablet Condition: Dose/Route: 6 mg Instruction: 1 x 6 mg tablet Condition: Sunday Dose/Route: 3 mg Instruction: 3 x 1 mg tablets Condition: Sunday Dose/Route: 3 mg Instruction: 3 x 1 mg tablets Protocol Text: Adjustment Start Date: Sunday07/05/22 INR Value: 3.0 INR Date: 07/05/22 Recheck Date: 07/26/22 Rx Instructions: 1 mg PO as directed for adjustement of INR up or down; Referrals / Follow Up: Jeff Grullon MD [Med Staff - Active Staff] - 11/27/22 11:00 am Timmy Holley MD [Non-Staff] - 10/16/22 2:30 pm Vinny Atkinson MD [Primary Care Provider] - Within 2 Weeks Disposition Disposition (needs filled in before D/C Order can be placed): Home, Self Care
--- NOTE | 2022-07-18 10:59 | PCM.DC.SUM ---
Providers Date of Admission: 07/15/22 Primary Care Physician: Dr. Vinny Atkinson MD Consultations 07/15/22 19:54 Consult: Gastroenterology Routine Consulting Provider: [facility] Reason for Consult: GIB EMERGENT Consult: No Notified: Yes Date Notified: 07/15/22 Time Notified: 18:57 Method of Notification: Verbal 07/16/22 07:31 Consult: Nephrology Routine Consulting Provider: Sharron Calderon Reason for Consult: HD EMERGENT Consult: No Notified: Yes Date Notified: 07/16/22 Time Notified: 07:32 Method of Notification: Text Reason For Visit: SEVERE ANEMIA Diagnosis Discharge Diagnosis (1) GI bleed: Status: Acute Code(s): K92.2 - Gastrointestinal hemorrhage, unspecified Plan: -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 -Patient with history of peptic ulcer disease and also mucosal bleeding in the colon no did on scopes in 2018 -Aspirin was discontinued at that time -Continue Protonix drip with bolus -Continue octreotide drip -Continue to hold Coumadin but will hold off on reversing INR at this time with his mechanical valves as I would not want to thrombose his valve -Repeat INR in a.m.--> trending down -With history of liver disease will cover for SBP with ceftriaxone 2 g daily -GI is following-appreciate input (2) Acute on chronic anemia: Status: Chronic Code(s): D64.9 - Anemia, unspecified Plan: -Chronic anemia from chronic renal disease -Hemoglobin at baseline was 12.4 on most recent CBC from May -5.4 on admission -Transfused 2 units packed red blood cells on 01/15/2022 -Hemoglobin stable at 7.1-7.2 after transfusion -Cycle H&H's every 6 hours -Continue home oral iron supplementation (3) Supratherapeutic INR: Status: Acute Code(s): R79.1 - Abnormal coagulation profile Plan: -Patient on anticoagulation for mechanical valves -Goal INR 2.5-3.5 -Will not reverse anticoagulation given his history of mechanical valves however will hold Coumadin at this time and repeat INR in a.m. -May need to reverse if bleeding becomes more significant however at this point I suspect a slow trickle over time given his current symptoms--> he seems to be tolerating this hemoglobin without any significant issues and I suspect this bleed to be slow -INR down (4) Hyperkalemia: Status: Acute Code(s): E87.5 - Hyperkalemia Plan: -5.9 with a repeat of 6.3 -Suspect upper secondary to blood transfusion -Was 4.2 on admission -Kayexalate 30 mg today and repeat in a.m. -Patient is due for dialysis on Sunday (5) Acute metabolic encephalopathy: Status: Resolved Code(s): G93.41 - Metabolic encephalopathy Plan: resolved (6) History of aortic valve replacement: Status: Chronic Code(s): Z95.2 - Presence of prosthetic heart valve Plan: Resume warfarin. We will have the patient continue with warfarin at 3mg daily. Previously, patient was on warfarin 3 mg Sunday, Sunday, Sunday, Sunday and Sunday and then 6 mg on Sunday and . Plan Acute metabolic encephalopathy -Resolved End-stage renal disease on HD -Sun dialysis -Consult nephrology--> Dr. Sharron Calderon notified -Continue phosphate binder Did have hemodialysis on the Liver cirrhosis -Etiology is unclear -Patient denies any previous alcohol use -Continue home rifaximin -Currently appears to be compensated and I doubt this is the etiology of his confusion at this time -Ultrasound done at [facility] on 02/2022 to assess for hepatocellular carcinoma and it was negative for any nodules or masses -Continue rifaximin Hypertension -Blood pressures improved from admission but still within normal range -Continue to hold carvedilol -Continue to hold isosorbide mononitrate GERD -Hold oral Protonix -Use drip at this time BPH -Continue Flomax Hypothyroidism -Continue levothyroxine -TSH was 1.42 on 01/11/2022 Possible seizure history -Continue Keppra -Continue levocarnitine -Follows with Dr. Holley at baseline Insomnia -Takes Xanax 0.5 mg at at bedtime for sleep as needed -We will hold at this time with soft blood pressures -Melatonin made available DVT prophylaxis -Remain supratherapeutic CODE STATUS -CODE STATUS changed to full code, is at bedside and they both agree that his CODE STATUS should be full code at this time. Medications at Discharge Home Medications tamsulosin 0.4 mg capsule 0.4 mg PO DINNER prostate 05/19/21 levothyroxine 75 mcg tablet 75 mcg PO DAILY thyroid 08/24/21 rifaximin 550 mg tablet (Xifaxan) 550 mg PO BID diarrhea 01/10/22 vitamin B complex-vitamin C-folic acid 0.8 mg tablet (Nephro-Baltazar) 1 tab PO DAILY vitamin 01/10/22 ferrous sulfate 325 mg (65 mg iron) tablet 325 mg PO QODAY SUPPLEMENT #0 tabs 01/12/22 albuterol sulfate 90 mcg/actuation aerosol inhaler (Ventolin HFA) 2 puff inhalation Q4H PRN shortness of breath or wheezing #18 grams 01/26/22 alprazolam 1 mg tablet (Xanax) 0.5 mg PO QHS Sleep 02/01/22 carvedilol 6.25 mg tablet (Coreg) 6.25 mg PO BID 04/04/22 levetiracetam 500 mg tablet (Keppra) 500 mg PO BID #60 tabs 04/24/22 levocarnitine 330 mg tablet (Carnitor) 330 mg PO BID #60 tabs 04/24/22 sevelamer HCl 800 mg tablet (Renagel) 1,600 mg PO TID 06/06/22 isosorbide mononitrate 30 mg tablet,extended release 24 hr 30 mg PO DAILY 07/15/22 pantoprazole 40 mg tablet,delayed release 40 mg PO BIDCM GERD #60 tabs 07/18/22 warfarin 6 mg tablet 3 mg PO DAILY #30 tabs 07/18/22 Hospital Course Operations None Procedures Dialysis and EGD Summary of Care Provided Minutes Spent on Discharge: 35 Hospital Course: 72-year-old male presents with weakness and confusion. Patient was found to have acute blood loss anemia of a hemoglobin of 5.4. Likely due to the anemia contributed to his lack of cerebral perfusion pressure which may have caused him to be confused. Compounded by his over 5. Patient does have mechanical aortic valve and his INR did improve. Patient was transfused blood while he was here. Patient's hemoglobin was stable and patient underwent EGD that showed gastric antral ectasia that was treated with argon laser. Patient has remained stable. She patient did have dialysis on probably due to his hyper kalemia. Mild cognitive impairment. Patient was transfused. Patient will be discharged with twice daily Protonix. He was on it daily previous. Patient's warfarin dose was 3 mg with the exception of Sunday and when he would take 6 mg. I have advised him to cut that back to 3 mg daily. Patient is on that for mechanical aortic valve with an INR goal of 2.5-3.5 preferably around 3. Patient does have issues regards to managing his warfarin dosing. I advised him to avoid green and leafy vegetables. Weight / BMI Weight Weight: 72.6 kg Body Mass Index (BMI) 25.4 ABG / Lab / Microbiology Data Result Diagrams: 07/18/22 03:58 07/18/22 03:58 Laboratory: Laboratory Results - last 24 hr 07/15/22 12:04: Diff Path Review Reviewed 07/18/22 03:58: WBC 6.7, RBC 2.59 L, Hgb 8.1 L, Hct 24.8 L, MCV 95.8 H, MCH 31.3, MCHC 32.7, RDW Std Deviation 57.6 H, RDW Coeff of Jennifer 16.8 H, Plt Count 133 L, MPV 9.6, Immature Gran % (Auto) 0.400, Neut % (Auto) 66.9, Lymph % (Auto) 14.4 L, [place] % (Auto) 11.9 H, Eos % (Auto) 5.8 H, Baso % (Auto) 0.6, Absolute Neuts (auto) 4.5, Absolute Lymphs (auto) 0.97, Nucleated RBC % 0 07/18/22 03:58: PT 34.4 H, INR 3.4 07/18/22 03:58: Sodium 133 L, Potassium 3.9, Chloride 95 L, Carbon Dioxide 29.0, Anion Gap 9, BUN 30 H, Creatinine 3.87 H, Estim Creat Clear Calc 15.89, Est GFR (MDRD) Af Amer 20 L, Est GFR (MDRD) Non-Af 16 L, BUN/Creatinine Ratio 7.8 L, Glucose 83, Calcium 7.4 L, Total Bilirubin 0.80, AST 39 H, ALT 26, Alkaline Phosphatase 275 H, Total Protein 5.7 L, Albumin 2.6 L, Globulin 3.1, Albumin/Globulin Ratio 0.8 L D/C Instructions Discharge Diet: Low fat / Low cholesterol (avoid green leafy vegetables. ) Call your doctor if you observe: - (blood in stools. dark tarry stools. ) Meaningful Use Info Meaningful Use Diagnoses (Choose all that apply): None applicable Discharge Plan Admission Admit Date/Time: 07/15/22 18:52 Primary Reason for Your Visit: GI bleed. hyperkalemia Attending Provider: Pako Valadez Primary Care Provider: Vinny Atkinson Consulting Providers: Sharron Calderon ; Nayeli Calderon Instructions Additional Instructions / Restrictions: Also center will reach out to you if you are to have dialysis again this week such as on . Discharge Orders/Prescriptions Prescriptions: New warfarin 6 mg tablet 3 mg PO DAILY Qty: 30 0RF Continued alprazolam [Xanax] 1 mg tablet 0.5 mg PO QHS levetiracetam [Keppra] 500 mg tablet 500 mg PO BID Qty: 60 5RF levocarnitine [Carnitor] 330 mg tablet 330 mg PO BID Qty: 60 5RF Rx Instructions: must administer with a meal/food albuterol sulfate [Ventolin HFA] 90 mcg/actuation HFA aerosol inhaler 2 puff inhalation Q4H PRN (Reason: shortness of breath or wheezing) Qty: 18 6RF sevelamer HCl [Renagel] 800 mg tablet 1,600 mg PO TID Rx Instructions: must administer with a meal/food tamsulosin 0.4 mg capsule 0.4 mg PO DINNER levothyroxine 75 mcg tablet 75 mcg PO DAILY Nephro-Baltazar 0.8 mg tablet 1 tab PO DAILY Label Comments: TAKE 1 TABLET BY MOUTH EVERY DAY Xifaxan 550 mg Tablet 550 mg PO BID ferrous sulfate 325 mg (65 mg iron) Tablet 325 mg PO QODAY Qty: 0 0RF Rx Instructions: 2 hrs before doxycycline carvedilol [Coreg] 6.25 mg tablet 6.25 mg PO BID Rx Instructions: HOLD IF SYSTOLIC BP <100 isosorbide mononitrate 30 mg tablet extended release 24 hr 30 mg PO DAILY Changed pantoprazole 40 mg tablet,delayed release (DR/EC) 40 mg PO BIDCM Qty: 60 0RF Discontinued fluconazole 200 mg tablet 200 mg PO DAILY ondansetron HCl 4 mg tablet 4 mg PO Q6H PRN (Reason: Nausea) doxycycline hyclate 100 mg tablet 100 mg PO BID Qty: 60 0RF warfarin 6 mg tablet 3 mg PO SUMOTUFRSA Protocol: Dose Management Condition: Sunday Dose/Route: 3 mg Instruction: 3 x 1 mg tablets Condition: Sunday Dose/Route: 3 mg Instruction: 3 x 1 mg tablets Condition: Sunday Dose/Route: 3 mg Instruction: 3 x 1 mg tablets Condition: Sunday Dose/Route: 6 mg Instruction: 1 x 6 mg tablet Condition: Dose/Route: 6 mg Instruction: 1 x 6 mg tablet Condition: Sunday Dose/Route: 3 mg Instruction: 3 x 1 mg tablets Condition: Sunday Dose/Route: 3 mg Instruction: 3 x 1 mg tablets Protocol Text: Adjustment Start Date: Sunday07/05/22 INR Value: 3.0 INR Date: 07/05/22 Recheck Date: 07/26/22 warfarin 1 mg tablet 6 mg PO WETH Protocol: Dose Management Condition: Sunday Dose/Route: 3 mg Instruction: 3 x 1 mg tablets Condition: Sunday Dose/Route: 3 mg Instruction: 3 x 1 mg tablets Condition: Sunday Dose/Route: 3 mg Instruction: 3 x 1 mg tablets Condition: Sunday Dose/Route: 6 mg Instruction: 1 x 6 mg tablet Condition: Dose/Route: 6 mg Instruction: 1 x 6 mg tablet Condition: Sunday Dose/Route: 3 mg Instruction: 3 x 1 mg tablets Condition: Sunday Dose/Route: 3 mg Instruction: 3 x 1 mg tablets Protocol Text: Adjustment Start Date: Sunday07/05/22 INR Value: 3.0 INR Date: 07/05/22 Recheck Date: 07/26/22 Rx Instructions: 1 mg PO as directed for adjustement of INR up or down; Referrals / Follow Up: Jeff Grullon MD [Med Staff - Active Staff] - 11/27/22 11:00 am Timmy Holley MD [Non-Staff] - 10/16/22 2:30 pm Vinny Atkinson MD [Primary Care Provider] - Within 2 Weeks Disposition Disposition (needs filled in before D/C Order can be placed): Home, Self Care Charges/Coding Visit Charges Inpatient E&M: 79999 Disch Hosp
[2022-07-18 11:07] VITALS: PULSE 72
--- NOTE | 2022-07-18 11:10 | CASEMGMT ---
This RN CM to room to discuss discharge plan. Pt/ state no concerns with going home at discharge and pt states no need for any OP or HHC therapy at discharge. Pt/ aware to contact PCP if they feel the need for therapy once home, voices understanding. Per Dr. Valadez, Dr. Calderon states pt does not need HD today and that she will likely have him set up for next OP HD on 07/20/22. Call to [facility] and [facility] aware that pt will not need HD today and that Dr. Calderon would like to have pt come in 07/20/22 and she states they have some spots available. [facility] states they will touch base with Dr Calderon and then will notify pt/. Pt/ aware of all, voices understanding and voice no further questions/concerns/needs. Bina POWERS CM
== END 2022-07-18 13:00 | disposition home or self-care (01) | DRG 377 ==
LOC: ED 19:00 → PCU 19:10
PROVIDERS: Anesthesiology; Internal Medicine Gastroenterology; Admitting Provider Internal Medicine; Emergency Provider Student in an Organized Health Care Education/Training Program; PCP Family Medicine
PROC: 0DJ08ZZ Inspection of Upper Intestinal Tract, Via Natural or Artificial Opening Endoscopic (ICD-10-PCS; CPT 43235; principal; 2022-07-17 11:25)
DX: K31.811 Angiodysplasia of stomach and duodenum with bleeding (principal); G93.41 Metabolic encephalopathy; N18.6 End stage renal disease; I12.0 Hypertensive chronic kidney disease with stage 5 chronic kidney disease or end stage renal disease; I43 Cardiomyopathy in diseases classified elsewhere; K76.6 Portal hypertension; C91.10 Chronic lymphocytic leukemia of B-cell type not having achieved remission; D63.1 Anemia in chronic kidney disease; I95.9 Hypotension, unspecified; Z99.2 Dependence on renal dialysis; K74.60 Unspecified cirrhosis of liver; I25.10 Atherosclerotic heart disease of native coronary artery without angina pectoris; E78.00 Pure hypercholesterolemia, unspecified; D50.0 Iron deficiency anemia secondary to blood loss (chronic); E87.5 Hyperkalemia; K21.9 Gastro-esophageal reflux disease without esophagitis; E03.9 Hypothyroidism, unspecified; K29.80 Duodenitis without bleeding; K44.9 Diaphragmatic hernia without obstruction or gangrene; G47.33 Obstructive sleep apnea (adult) (pediatric); Z86.16 Personal history of COVID-19; Z79.01 Long term (current) use of 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; R79.1 Abnormal coagulation profile; G47.00 Insomnia, unspecified; N40.0 Benign prostatic hyperplasia without lower urinary tract symptoms; Z95.0 Presence of cardiac pacemaker; Z86.718 Personal history of other venous thrombosis and embolism; Z79.899 Other long term (current) drug therapy; Z95.2 Presence of prosthetic heart valve
CPT/HCPCS: 36415; 70450; 71045; 80048; 80053; 80076; 81001; 82140; 83690; 83735; 83880; 84100; 84132; 84484; 85014; 85018; 85025; 85610; 86850; 86900; 86901; 86920; 86922; 88305; 88342; 90937; 93005; 99251; 99285; J7030; J7040; P9016; A4216; G0257; G0463; J0696; J2405; J3490

== ENCOUNTER → 2022-07-31 | Outpatient (CLI) | payer MEDICARE, OTHER, SELFPAY ==
--- NOTE | 2022-07-31 07:09 | US_ITS ---
EXAM: US ABDOMEN LIMITED, RIGHT UPPER QUADRANT CLINICAL INDICATION: HCC SCREENING TECHNIQUE: Real-time ultrasound of the right upper quadrant with image documentation. This report was created using [employer] report generation technology. COMPARISON: None. FINDINGS: LIVER: Mildly nodular surface of the liver raises possibility of underlying cirrhosis. Echotexture is somewhat coarse than normal. No intrahepatic biliary ductal dilation. GALLBLADDER: Gallbladder surgically absent. COMMON BILE DUCT: The proximal common bile duct is within normal limits for the patient''s age. PANCREAS: Unremarkable as visualized. No focal abnormality is demonstrated in the pancreas. No pancreatic ductal dilatation. RIGHT KIDNEY: 4.5 cm simple cyst arises from the lower pole of the right kidney. No specific follow-up is indicated. There is no hydronephrosis. No shadowing calculus. US/Abdomen Limited IMPRESSION: Question of liver cirrhosis. Electronically Signed: Josiah Mcallister MD at 8:23 EDT ,
== END | disposition home or self-care (01) ==
LOC: US 07:08
PROVIDERS: PCP Family Medicine
DX: N28.1 Cyst of kidney, acquired (principal); Z90.49 Acquired absence of other specified parts of digestive tract
CPT/HCPCS: 76705

== ENCOUNTER 2022-08-17 10:38 | Outpatient (RCR) | payer MEDICARE, OTHER, SELFPAY ==
[2022-07-19 23:22] VITALS: BMI 28.8
[2022-07-20 10:47] LABS: Hematocrit 25.1 % (40-54); Hemoglobin 8.2 g/dL (13.0-16.5); Mean Corp Hgb Conc 32.7 g/dL (32-36); Mean Corpuscular Hgb 32.4 pg (27.0-32.0); Mean Corpuscular Volume 99.2 fL (80-94); Mean Platelet Vol. 10.1 fl (6.2-12.0); Platelet Count 136 K/mm3 (150-450); RBC Distribution Width CV 17.1 % (11.6-14.6); RBC Distribution Width SD 58.2 fl (35.1-43.9); Red Blood Count 2.53 M/mm3 (4.6-6.2); White Blood Count 5.3 K/mm3 (4.4-11.0)
[2022-07-20 10:58] LABS: International Normalized Ratio 1.5; Prothrombin Time (Protime)PT. 17.7 SECONDS (11.7-14.9)
[2022-07-20 10:59] LABS: Partial Thromboplast Time 37.8 Seconds (24.1-36.2)
[2022-07-20 11:15] LABS: AST(SGOT) 31 U/L (15-37); Alanine Aminotransfer ALT/SGPT 26 U/L (16-61); Albumin, Serum 2.8 g/dL (3.2-5.0); Alkaline Phosphatase 297 U/L (45-117); Anion Gap 12 (5-15); BUN 53 mg/dL (7-18); BUN/Creat Ratio 7.6 RATIO (10-20); Bilirubin, Direct 0.41 mg/dL (0.00-0.30); Calcium,Total 7.4 mg/dL (8.5-10.1); Chloride 99 mmol/L (98-107); Creatinine, Serum 6.95 mg/dL (0.70-1.30); EST Glomerular Filtration Rate 8 mL/min (>60); Est Glom Filt Rate - Afr Amer 10 mL/min (>60); Globulin 3.4 g/dL (2.2-4.2); Glucose 142 mg/dL (74-106); Potassium 3.8 mmol/L (3.5-5.1); Protein, Total 6.2 g/dL (6.4-8.2); Sodium Level 136 mmol/L (136-145)
[2022-07-23 14:24] LABS: AFP, Tumor Marker 1.1 ng/mL (0.0-8.4)
[2022-07-25 12:13] LABS: International Normalized Ratio 1.6; Prothrombin Time (Protime)PT. 18.8 SECONDS (11.7-14.9)
[2022-07-28 11:53] LABS: Absolute Lymphocyte Count 1.04 X10^3/uL (0.83-4.51); Absolute Neutrophil Count 3.7 X10^3/uL (2.0-7.7); Basophil# 0.03 X10^3/uL; Basophil% 0.5 % (0-1); Eosinophils% 5.2 % (0-5); Hematocrit 26.4 % (40-54); Hemoglobin 8.2 g/dL (13.0-16.5); Lymphocyte # 1.04 X10^3/ul (0.83-4.51); Lymphocyte % 17.9 % (19-41); Mean Corp Hgb Conc 31.1 g/dL (32-36); Mean Corpuscular Hgb 31.9 pg (27.0-32.0); Mean Corpuscular Volume 102.7 fL (80-94); Monocyte# 0.74 X10^3/uL; Monocyte% 12.7 % (0-10); NRBC Flagged by Analyzer 0 % (0-5); Neutrophil # 3.69 X10^3/uL (2.7-7.7); Neutrophil % 63.4 % (47-70); Platelet Count 103 K/mm3 (150-450); RBC Distribution Width SD 63.8 fl (35.1-43.9); Red Blood Count 2.57 M/mm3 (4.6-6.2); White Blood Count 5.8 K/mm3 (4.4-11.0)
[2022-07-28 12:00] LABS: International Normalized Ratio 2.3
[2022-08-03 12:27] LABS: International Normalized Ratio 3.3; Prothrombin Time (Protime)PT. 33.3 SECONDS (11.7-14.9)
[2022-08-17 11:32] LABS: Prothrombin Time (Protime)PT. 52.7 SECONDS (11.7-14.9)
[2022-08-17 11:36] LABS: International Normalized Ratio 5.9
== END 2022-08-17 18:00 | disposition home or self-care (01) ==
LOC: LAB 10:38
PROVIDERS: Family Provider Family Medicine; PCP Family Medicine; Referring Provider Internal Medicine Cardiovascular Disease; Visit Provider Internal Medicine Cardiovascular Disease
DX: Z79.01 Long term (current) use of 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 (principal); Z95.2 Presence of prosthetic heart valve; K74.60 Unspecified cirrhosis of liver
CPT/HCPCS: 36415; 80048; 80076; 82105; 85025; 85027; 85610; 85730

== ENCOUNTER 2022-08-28 11:09 | Outpatient (RCR) | payer MEDICARE, OTHER, SELFPAY ==
[2022-08-18 22:00] VITALS: BMI 28.8
[2022-08-21 12:06] LABS: International Normalized Ratio 3.2; Prothrombin Time (Protime)PT. 32.6 SECONDS (11.7-14.9)
[2022-08-28 13:19] LABS: Prothrombin Time (Protime)PT. 39.5 SECONDS (11.7-14.9)
[2022-08-28 13:25] LABS: International Normalized Ratio 4.1
== END 2022-09-18 23:59 ==
LOC: AC 11:09
PROVIDERS: Family Provider Family Medicine; PCP Family Medicine; Referring Provider Internal Medicine Cardiovascular Disease; Visit Provider Internal Medicine Cardiovascular Disease
DX: Z79.01 Long term (current) use of 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 (principal); Z95.2 Presence of prosthetic heart valve; K74.60 Unspecified cirrhosis of liver
CPT/HCPCS: 36415; 85610

== ENCOUNTER 2022-09-18 10:31 | Outpatient (RCR) | payer MEDICARE, OTHER, SELFPAY ==
[2022-09-04 09:52] LABS: Absolute Lymphocyte Count 1.26 X10^3/uL (0.83-4.51); Absolute Neutrophil Count 3.7 X10^3/uL (2.0-7.7); Basophil# 0.05 X10^3/uL; Basophil% 0.8 % (0-1); Eosinophil# 0.44 X10^3/uL; Eosinophils% 7.1 % (0-5); Hematocrit 36.8 % (40-54); Hemoglobin 11.6 g/dL (13.0-16.5); Lymphocyte # 1.26 X10^3/ul (0.83-4.51); Lymphocyte % 20.2 % (19-41); Mean Corp Hgb Conc 31.5 g/dL (32-36); Mean Corpuscular Hgb 31.6 pg (27.0-32.0); Mean Corpuscular Volume 100.3 fL (80-94); Mean Platelet Vol. 10.1 fl (6.2-12.0); Monocyte% 12.8 % (0-10); NRBC Flagged by Analyzer 0 % (0-5); Neutrophil # 3.67 X10^3/uL (2.7-7.7); Neutrophil % 58.9 % (47-70); Platelet Count 164 K/mm3 (150-450); RBC Distribution Width CV 16.1 % (11.6-14.6); RBC Distribution Width SD 59.2 fl (35.1-43.9); Red Blood Count 3.67 M/mm3 (4.6-6.2); White Blood Count 6.2 K/mm3 (4.4-11.0)
[2022-09-04 09:56] LABS: Prothrombin Time (Protime)PT. 31.1 SECONDS (11.7-14.9)
[2022-09-13 11:40] LABS: International Normalized Ratio 3.4; Prothrombin Time (Protime)PT. 33.6 SECONDS (11.7-14.9)
[2022-09-18 11:59] LABS: International Normalized Ratio 2.3
== END 2022-09-18 18:00 | disposition home or self-care (01) ==
LOC: LAB 10:31
PROVIDERS: PCP Family Medicine; Visit Provider Internal Medicine Cardiovascular Disease
DX: D62 Acute posthemorrhagic anemia (principal); Z79.01 Long term (current) use of 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; Z95.2 Presence of prosthetic heart valve
CPT/HCPCS: 36415; 85025; 85610

== ENCOUNTER 2022-10-16 10:41 | Outpatient (RCR) | payer MEDICARE, OTHER, SELFPAY ==
[2022-09-19 00:10] VITALS: BMI 28.8
[2022-09-22 11:24] LABS: International Normalized Ratio 2.1; Prothrombin Time (Protime)PT. 22.8 SECONDS (11.7-14.9)
[2022-09-29 10:31] LABS: International Normalized Ratio 2.3; Prothrombin Time (Protime)PT. 25.2 SECONDS (11.7-14.9)
[2022-09-29 10:56] LABS: T4 Free Direct 1.13 ng/dL (0.76-1.46); Thyroid Stim Hormone (TSH) 0.72 uIU/mL (0.358-3.74)
[2022-09-29 11:58] LABS: Absolute Lymphocyte Count 1.69 X10^3/uL (0.83-4.51); Absolute Neutrophil Count 3.8 X10^3/uL (2.0-7.7); Basophil# 0.06 X10^3/uL; Basophil% 0.9 % (0-1); Eosinophil# 0.35 X10^3/uL; Eosinophils% 5.1 % (0-5); Hematocrit 38.9 % (40-54); Hemoglobin 12.4 g/dL (13.0-16.5); Lymphocyte # 1.69 X10^3/ul (0.83-4.51); Lymphocyte % 24.9 % (19-41); Mean Corp Hgb Conc 31.9 g/dL (32-36); Mean Corpuscular Hgb 31.6 pg (27.0-32.0); Mean Platelet Vol. 10.2 fl (6.2-12.0); Monocyte% 13.2 % (0-10); NRBC Flagged by Analyzer 0 % (0-5); Neutrophil # 3.79 X10^3/uL (2.7-7.7); Neutrophil % 55.8 % (47-70); Platelet Count 163 K/mm3 (150-450); RBC Distribution Width CV 14.8 % (11.6-14.6); RBC Distribution Width SD 54.4 fl (35.1-43.9); Red Blood Count 3.93 M/mm3 (4.6-6.2); White Blood Count 6.8 K/mm3 (4.4-11.0)
[2022-10-06 10:32] LABS: International Normalized Ratio 2.7; Prothrombin Time (Protime)PT. 28.4 SECONDS (11.7-14.9)
[2022-10-16 11:08] LABS: International Normalized Ratio 2.8
== END 2022-10-18 18:00 | disposition home or self-care (01) ==
LOC: LAB 10:41
PROVIDERS: Nurse Practitioner Adult Health; PCP Family Medicine; Referring Provider Internal Medicine Cardiovascular Disease; Visit Provider Internal Medicine Cardiovascular Disease
DX: Z79.01 Long term (current) use of 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 (principal); Z95.2 Presence of prosthetic heart valve; E03.9 Hypothyroidism, unspecified; K92.2 Gastrointestinal hemorrhage, unspecified
CPT/HCPCS: 36415; 82274; 84439; 84443; 85025; 85610

== ENCOUNTER 2022-11-06 09:35 | Outpatient (RCR) | payer MEDICARE, OTHER, SELFPAY ==
[2022-10-19 00:35] VITALS: BMI 28.8
[2022-10-30 10:37] LABS: International Normalized Ratio 3.9; Prothrombin Time (Protime)PT. 38.2 SECONDS (11.7-14.9)
[2022-11-06 10:54] LABS: International Normalized Ratio 2.4; Prothrombin Time (Protime)PT. 25.7 SECONDS (11.7-14.9)
== END 2022-11-06 18:00 | disposition home or self-care (01) ==
LOC: LAB 09:35
PROVIDERS: Psychiatry & Neurology Neurology; PCP Family Medicine; Referring Provider Internal Medicine Cardiovascular Disease; Visit Provider Internal Medicine Cardiovascular Disease
DX: Z79.01 Long term (current) use of 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 (principal); Z95.2 Presence of prosthetic heart valve
CPT/HCPCS: 36415; 85610

== ENCOUNTER 2022-12-06 09:25 | Outpatient (RCR) | payer MEDICARE, OTHER, SELFPAY ==
[2022-11-19 04:08] VITALS: BMI 28.8
[2022-11-22 10:20] LABS: Hematocrit 32.7 % (40-54); Hemoglobin 10.3 g/dL (13.0-16.5); Mean Corp Hgb Conc 31.5 g/dL (32-36); Mean Corpuscular Hgb 32.2 pg (27.0-32.0); Mean Corpuscular Volume 102.2 fL (80-94); Mean Platelet Vol. 9.3 fl (6.2-12.0); Platelet Count 268 K/mm3 (150-450); RBC Distribution Width CV 17.2 % (11.6-14.6); RBC Distribution Width SD 62.9 fl (35.1-43.9); White Blood Count 9.5 K/mm3 (4.4-11.0)
[2022-11-22 10:31] LABS: Prothrombin Time (Protime)PT. 30.7 SECONDS (11.7-14.9)
[2022-11-22 10:33] LABS: Partial Thromboplast Time 63.2 Seconds (24.1-36.2)
[2022-11-22 11:14] LABS: AST(SGOT) 79 U/L (15-37); Alanine Aminotransfer ALT/SGPT 117 U/L (16-61); Albumin, Serum 3.4 g/dL (3.2-5.0); Alkaline Phosphatase 592 U/L (45-117); Anion Gap 7 (5-15); BUN 50 mg/dL (7-18); BUN/Creat Ratio 6.6 RATIO (10-20); Bilirubin, Direct 0.62 mg/dL (0.00-0.30); Calcium,Total 9.4 mg/dL (8.5-10.1); Chloride 97 mmol/L (98-107); Creatinine, Serum 7.58 mg/dL (0.70-1.30); EST Glomerular Filtration Rate 8 mL/min (>60); Est Glom Filt Rate - Afr Amer 9 mL/min (>60); Globulin 5.4 g/dL (2.2-4.2); Glucose 101 mg/dL (74-106); Potassium 5.1 mmol/L (3.5-5.1); Protein, Total 8.8 g/dL (6.4-8.2); Sodium Level 136 mmol/L (136-145)
[2022-11-24 12:08] LABS: Albumin 3.6 g/dL (2.9-4.4); Alpha-1-Globulins 0.5 g/dL (0.0-0.4); Alpha-2-Globulins 0.8 g/dL (0.4-1.0); Free Lambda Light Chains 166.5 mg/L (5.7-26.3); Gamma Globulin 1.9 g/dL (0.4-1.8); Immunoglobulin A 147 mg/dL (61-437); Immunoglobulin G 1495 mg/dL (603-1613)
[2022-11-24 20:06] LABS: Immunofixation Urine Comment: (.); Immunoglobulin M 785 mg/dL (15-143)
[2022-12-06 11:54] LABS: International Normalized Ratio 2.4; Prothrombin Time (Protime)PT. 25.6 SECONDS (11.7-14.9)
[2022-12-06 12:11] LABS: AST(SGOT) 101 U/L (15-37); Alanine Aminotransfer ALT/SGPT 143 U/L (16-61); Albumin, Serum 3.1 g/dL (3.2-5.0); Alkaline Phosphatase 557 U/L (45-117); Bilirubin, Direct 0.61 mg/dL (0.00-0.30); Globulin 5.3 g/dL (2.2-4.2); Protein, Total 8.4 g/dL (6.4-8.2)
[2022-12-06 12:44] LABS: Hepatitis B Surface Antigen Non-Reactive (Nonreactive); Hepatitis C Antibody Non-Reactive (Nonreactive)
[2022-12-07 22:06] LABS: HCV Quant. RNA PCR HCV Not Detected IU/mL (.); Hepatitis A AB, Total Positive (Negative)
[2022-12-08 13:09] LABS: Hepatitis B Core AB IgM Negative (Negative)
== END 2022-12-06 18:00 | disposition home or self-care (01) ==
LOC: LAB 09:25
PROVIDERS: PCP Family Medicine; Referring Provider Internal Medicine Cardiovascular Disease; Visit Provider Internal Medicine Cardiovascular Disease
DX: Z79.01 Long term (current) use of 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 (principal); Z95.2 Presence of prosthetic heart valve; K74.60 Unspecified cirrhosis of liver
CPT/HCPCS: 36415; 80048; 80076; 82140; 82784; 83883; 84165; 85027; 85610; 85730; 86334; 86335; 86705; 86708; 86803; 87340; 87522

== ENCOUNTER → 2022-12-06 | Outpatient (CLI) | payer MEDICARE, OTHER, SELFPAY ==
--- NOTE | 2022-12-06 09:49 | ECHOD_ITS ---
Reason For Study: VALVE REPLACEMETNE TOMAS Procedure This was a 2D Doppler, Color Flow transthoracic echocardiogram. Exam performed in department. Left Ventricle Borderline enlarged left ventricle. Mild concentric left ventricular hypertrophy. Left ventricular systolic function is normal. The estimated ejection fraction is 60 %. Post operative septal motion. Stage 2 diastolic dysfunction. Right Ventricle Normal RV size. ICD or pacer leads identified within the right ventricle. Normal systolic function. Atria The left atrium is mildly enlarged. The right atrium is mildly enlarged. ICD or pacer leads identified within the right atrium. No doppler evidence for ASD. Mitral Valve Anterior leaflet diffuse mitral valve thickening. Moderate focal mitral valve calcification of the anterior leaflet. An annuloplasty ring is noted in the mitral position. Mild to moderate (1-2) transvalvular insufficiency of the mitral valve. Tricuspid Valve Normal tricuspid valve. Mild to moderate (1-2+) tricuspid valve insufficiency. Right ventricular systolic pressure estimated to be 50 mmHg. Aortic Valve The aortic valve apparatus is not well visualized, however, based upon the 2D echocardiographic images obtained there appears to be a stable mechanical prosthetic aortic valve apparatus with spectral Doppler data compatible with mild aortic valve stenosis. Mild transvalvular insufficiency of the aortic valve. Pulmonic Valve Normal pulmonic valve. Trivial pulmonic valve insufficiency. Great Vessels Normal sized aortic root. Pericardium/Pleural No pericardial effusion. MMode/2D Measurements & Calculations LVIDd: 5.7 cm IVSd: 1.4 cm LVOT diam: 2.0 cm LVIDs: 4.1 cm LVPWd: 1.3 cm LVOT area: 3.2 cm2 RVDd: 3.5 cm FS: 28.1 % Ao root diam: 3.8 cm LAV(MOD-bp): 106.4 ml LVAd ap4: 33.3 cm2 LAV(MOD-bp) Indexed: 57.1 ml/m2 LVLd ap4: 7.9 cm LAV(MOD-sp2): 110.5 ml EDV(MOD-sp4): 112.8 ml LAV(MOD-sp4): 101.6 ml EDV(sp4-el): 119.3 ml LVAs ap4: 18.2 cm2 LVLs ap4: 6.6 cm ESV(MOD-sp4): 43.3 ml ESV(sp4-el): 42.6 ml EF(MOD-sp4): 61.6 % EF(sp4-el): 64.3 % SV(MOD-sp4): 69.5 ml SV(sp4-el): 76.7 ml LA A4 area: 28.6 cm2 LA dimension(2D): 5.9 cm RA A4 area: 16.3 cm2 Time Measurements MV dec time: 0.22 sec Doppler Measurements & Calculations MV E max syed: 155.5 cm/sec Lat Peak E' Syed: 6.9 cm/sec Med Peak E' Syed: 6.3 cm/sec MV A max syed: 87.1 cm/sec E/E' lat: 22.4 E/E' med: 24.9 MV E/A: 1.8 MV V2 max: 159.9 cm/sec MV P1/2t max syed: 255.6 cm/sec Ao V2 max: 263.3 cm/sec MV max P.2 mmHg MV P1/2t: 129.2 msec Ao max P.8 mmHg MV V2 mean: 84.7 cm/sec Ao V2 mean: 172.7 cm/sec MV mean P.7 mmHg MV dec slope: 579.4 cm/sec2 Ao mean P.3 mmHg MV V2 VTI: 44.9 cm MVA(P1/2t): 1.7 cm2 Ao V2 VTI: 59.2 cm AV (velocity ratio): 0.51 MVA(VTI): 2.1 cm2 HAJA(I,D): 1.6 cm2 HAJA(V,D): 1.6 cm2 AI max syed: 341.7 cm/sec LV V1 max: 135.5 cm/sec MR max syed: 496.4 cm/sec AI max P.7 mmHg LV V1 max P.4 mmHg MR max P.6 mmHg LV V1 mean P.5 mmHg MR mean syed: 381.3 cm/sec AI dec slope: 269.0 cm/sec2 LV V1 mean: 101.3 cm/sec MR mean P.6 mmHg AI P1/2t: 372.1 msec LV V1 VTI: 30.5 cm MR VTI: 181.4 cm SV(LVOT): 96.3 ml PA V2 max: 102.1 cm/sec TR max syed: 341.2 cm/sec PA V2 mean: 72.7 cm/sec TR max P.6 mmHg ECHO/Echo Complete Interpretation Summary Borderline enlarged left ventricle. Left ventricular systolic function is normal. The estimated ejection fraction is 60 %. Post operative septal motion. Mild concentric left ventricular hypertrophy. The left atrium is mildly enlarged. The right atrium is mildly enlarged. An annuloplasty ring is noted in the mitral position. Anterior leaflet diffuse mitral valve thickening. Moderate focal mitral valve calcification of the anterior leaflet. Mild to moderate (1-2) transvalvular insufficiency of the mitral valve. Mild to moderate (1-2+) tricuspid valve insufficiency. The aortic valve apparatus is not well visualized, however, based upon the 2D e chocardiographic images obtained there appears to be a stable mechanical prosthetic aortic valve apparatus with spectral Doppler data compatible with mild aortic valve stenosis. Mild transvalvular insufficiency of the aortic valve. Trivial pulmonic valve insufficiency. Right ventricular systolic pressure estimated to be 50 mmHg. Stage 2 diastolic dysfunction. ICD or pacer leads identified within the right atrium ICD or pacer leads identified within the right ventricle. Ordering Physician: Jeff Grullon Referring Physician: Jeff Grullon Performed By: Yvette Poe RCS
== END | disposition home or self-care (01) ==
LOC: CVS 09:48
PROVIDERS: PCP Family Medicine; Referring Provider Internal Medicine Cardiovascular Disease; Visit Provider Internal Medicine Cardiovascular Disease
DX: E78.5 Hyperlipidemia, unspecified (principal); I10 Essential (primary) hypertension; Z95.0 Presence of cardiac pacemaker; Z98.890 Other specified postprocedural states
CPT/HCPCS: 36415; 80076; 85610; 86705; 86708; 86803; 87340; 87522; 93306

== ENCOUNTER → 2022-12-08 | Outpatient (CLI) | payer MEDICARE, OTHER, SELFPAY ==
--- NOTE | 2022-12-08 09:07 | US_ITS ---
STUDY: ABDOMINAL ULTRASOUND - RIGHT UPPER QUADRANT REASON FOR VISIT: Male, 72 years old CIRRHOSIS OF LIVER TECHNIQUE: Ultrasound evaluation of the right upper quadrant was performed with real-time and static hart-scale imaging. TECHNICAL QUALITY: Adequate. COMPARISON: Comparison is made with prior study dated 07/31/2022. FINDINGS: Liver: The liver measures 16.7 cm. There is a heterogeneous echogenicity of the liver with a lobular contour. The bile ducts are within normal limits. There is hepatic color flow. The direction of portal flow is hepatopetal. There is no demonstrated mass lesion. Gallbladder: The patient is status post cholecystectomy. Common Bile Duct (C.B.D.): The common bile duct measures 7.5 mm. Pancreas: Normal size of the head, body and tail of the pancreas. There is no demonstrated pancreatic mass or cyst. Right Kidney: Normal size of the right kidney. The right kidney measures 10.3 cm x 4.7 cm x 4.8 cm. There is thinning of the renal cortex. The right cortex measures 0.8 cm. There is a 4.1 cm x 4 cm x 3.3 cm cyst in the inferior pole of the kidney. There is no right hydronephrosis. US/Abdomen Limited IMPRESSION: Heterogeneous echogenicity of the liver with a lobular contour. Prior cholecystectomy. Right renal cyst Electronically Signed: Donte Álvarez MD at 14:06 EST ,
== END | disposition home or self-care (01) ==
PROVIDERS: PCP Family Medicine
DX: K74.69 Other cirrhosis of liver (principal)
CPT/HCPCS: 76705

== ENCOUNTER 2023-01-03 09:06 | Outpatient (RCR) | payer MEDICARE, OTHER, SELFPAY ==
[2022-12-20 08:35] VITALS: BMI 28.8
[2022-12-20 11:27] LABS: International Normalized Ratio 2.8; Prothrombin Time (Protime)PT. 28.8 SECONDS (11.7-14.9)
[2023-01-03 09:54] LABS: International Normalized Ratio 3.6; Prothrombin Time (Protime)PT. 35.7 SECONDS (11.7-14.9)
== END 2023-01-03 18:00 | disposition home or self-care (01) ==
LOC: LAB 09:06
PROVIDERS: PCP Family Medicine; Referring Provider Internal Medicine Cardiovascular Disease; Visit Provider Internal Medicine Cardiovascular Disease
DX: Z79.01 Long term (current) use of 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 (principal); Z95.2 Presence of prosthetic heart valve
CPT/HCPCS: 36415; 85610

== ENCOUNTER 2023-01-17 16:23 | Inpatient (IN) | payer MEDICARE, OTHER, SELFPAY ==
[2023-01-17] VITALS (12 sets, daily range): BP systolic 94–123; BP diastolic 44–50; PULSE 70–74; RESP 16–20; TEMP 36.4–36.8; O2SAT 97–100; BMI 26.9; BMI 27.1
--- NOTE | 2023-01-17 17:17 | EKG12_ITS ---
Test Reason : ABN LABS Blood Pressure : / mmHG Vent. Rate : 071 BPM Atrial Rate : 076 BPM P-R Int : 000 ms QRS Dur : 142 ms QT Int : 528 ms P-R-T Axes : 000 214 128 degrees QTc Int : 573 ms Ventricular-paced rhythm Abnormal ECG Confirmed by SOULEYMANE NIX, AIDEE ([id number]), medical transcription editor TRINA VIVAR ([id number]) on 01/22/2023 9:53:46 AM Referred By: Confirmed By:ALVARADO COMER MD
--- NOTE | 2023-01-17 17:18 | EX.ED.DYSGE1 ---
HPI History of Present Illness Chief Complaint: Abn Labs Narrative Narrative: 72-year-old male past medical history of aortic valve replacement, mechanical, on Coumadin, pacemaker, cirrhosis of the liver, presents with symptomatic anemia, complaining of shortness of breath, fatigue, but no chest pain. Last year, he did have a small, slow, esophageal bleed, but had a large amount of blood in his stool at that time. He states that Dr. Zheng cauterized it. He presents because of increasing, symptomatic anemia, with decreasing hemoglobin. He denies any bleeding diathesis, no hematemesis, no bright red blood per rectum. He and his state that they went to his relationship manager in [place] and had lab work yesterday which showed he was anemic. They also state that he had lab work today with a hemoglobin of 7.4. He was sent in by gastroenterology because he will require scoping. He denies any dizziness or lightheadedness. [facility] Medical History Abnormal results of thyroid function studies Airway intubation performed without difficulty Anemia in chronic kidney disease Atherosclerotic heart disease of [place] coronary artery without angina pectoris Atrial flutter Bacterial endocarditis Benign essential hypertension Biventricular cardiac pacemaker in situ (~05/26/16) CAD (coronary artery disease) Cardiomyopathy in disease classified elsewhere Cardiopulmonary arrest with successful resuscitation Cirrhosis CKD stage G5/A1, GFR <15 and albumin creatinine ratio <30 mg/g Coagulopathy COVID-19 Diffuse large b-cell lymphoma, extranodal and solid organ sites Dyspnea Encounter for long-term (current) use of high-risk medication Endocarditis due to Staphylococcus Epilepsy ESRD (end stage renal disease) on dialysis Gout History of diffuse large B-cell lymphoma History of DVT (deep vein thrombosis) History of non-Hodgkin's lymphoma History of pacemaker History of rheumatic fever as a child HLD (hyperlipidemia) Hyperthyroidism Hypothyroidism (acquired) Infectious endocarditis 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 Mild cognitive impairment MRSA (methicillin resistant Staphylococcus aureus) infection Non-rheumatic mitral regurgitation Non-rheumatic mitral valve stenosis Non-ST elevation (NSTEMI) myocardial infarction MIA (obstructive sleep apnea) Other specified cardiac dysrhythmias Paroxysmal ventricular tachycardia Polyneuropathy Pure hypercholesterolemia Rheumatic aortic stenosis Rheumatic mitral insufficiency Sepsis TIA (transient ischemic attack) (~11/19/15) Vitamin D insufficiency Home Medications tamsulosin 0.4 mg capsule 0.4 mg PO DINNER prostate 05/19/21 [History Last Taken 01/09/22] levothyroxine 75 mcg tablet 75 mcg PO DAILY thyroid 08/24/21 [History Last Taken 01/10/22] rifaximin 550 mg tablet (Xifaxan) 550 mg PO BID diarrhea 01/10/22 [History Last Taken 01/09/22] vitamin B complex-vitamin C-folic acid 0.8 mg tablet (Nephro-Baltazar) 1 tab PO DAILY vitamin 01/10/22 [History Last Taken 01/09/22] alprazolam 1 mg tablet (Xanax) 0.5 mg PO QHS Sleep 02/01/22 [History Last Taken Unknown] isosorbide mononitrate 30 mg tablet,extended release 24 hr 30 mg PO DAILY 07/15/22 [History Last Taken Unknown] warfarin 6 mg tablet 3 mg PO DAILY #45 tabs 07/20/22 [Rx Last Taken Unknown] warfarin 1 mg tablet 1 mg PO .COMPLEX 09/14/22 [History Last Taken Unknown] levetiracetam 250 mg tablet 250 mg PO BID #60 tabs 10/16/22 [Rx Last Taken Unknown] pantoprazole 40 mg tablet,delayed release 40 mg PO QAM #90 tabs 10/16/22 [Rx Last Taken Unknown] cyclobenzaprine 10 mg tablet 10 mg PO DAILY 11/27/22 [History Last Taken Unknown] doxycycline hyclate 100 mg tablet 100 mg PO BID 11/27/22 [History Last Taken Unknown] fluconazole 200 mg tablet (Diflucan) 200 mg PO DAILY 11/27/22 [History Last Taken Unknown] isosorbide mononitrate 30 mg tablet,extended release 24 hr 30 mg PO DAILY 11/27/22 [History Last Taken Unknown] carvedilol 3.125 mg tablet 3.125 mg PO BID #60 tabs 12/11/22 [Rx Last Taken Unknown] warfarin 1 mg tablet 1.5 mg PO QWEEK 01/17/23 [History Last Taken Unknown] warfarin 3 mg tablet 3 mg PO DAILY 01/17/23 [History Last Taken Unknown] Allergy/AdvReac Type Severity Reaction Status Date / Time No Known Allergies Allergy Verified 01/17/23 16:27 Family History Father CAD (coronary artery disease) CABG Brother CAD (coronary artery disease) CABG Mother Diabetes Sister Breast cancer Diabetes Sister Cancer breast Diabetes Surgical History dual chamber pacemaker implantation (~10/2010) History of aortic valve replacement (~08/2003) History of appendectomy History of atrioventricular chiquita ablation History of cholecystectomy History of evacuation of hematoma History of heart valve replacement with mechanical valve History of heart valve replacement with mechanical valve History of mechanical aortic valve replacement (~1986) History of mechanical aortic valve replacement (~08/24/03) History of mitral valve repair (~08/24/03) Social History household members: spouse housing: house current occupational status: retired current occupational exposures/hazards: No history of recent travel: No Smoking Status: Never smoker alcohol intake: never substance use type: does not use caffeine: No what type of physical activity do you participate in: weight training and other details: Nustep frequency: 3-4 times per week duration: 45-60 minutes/day seatbelt use: always do you feel safe at home: Yes ROS ROS ED ROS Narrative Constitutional: No fever, no chills. Positive fatigue. HEENT: No sore throat. No neck pain. No loss of vision. No rhinorrhea. Cardiovascular: No chest pain. No palpitations. No pedal edema. Respiratory: No cough, mild shortness of breath. Abdominal: No abdominal pain. No nausea. No vomiting. No hematemesis. No bright red blood per rectum. Chronically has dark stool secondary to medication. Genitourinary: No dysuria. No hematuria. Musculoskeletal: No myalgias. No arthralgias. Neurologic: No headaches. No dizziness. No lightheadedness. Skin: No rash. No change in color. Psychiatric: No depression. No anxiety. EXAM Physical Exam Narrative Exam Narrative: Afebrile. Vital signs noted. No noted bleeding diathesis. HEENT: Normocephalic. Atraumatic. PERRL, EOMI. Neck soft and supple. No point tenderness or step off. Cardiovascular: Regular rate and rhythm. No murmurs, rubs, or gallops appreciated. Sound of mechanical heart valve auscultated. Respiratory: No tachypnea. Lungs clear to auscultation bilaterally. Gastrointestinal: Abdomen soft, nontender, with normoactive bowel sounds. No rebound or guarding. Rectal examination deferred/declined by patient. Neurological: Awake. Alert. Nonfocal, nonlateralizing. Skin: No rash. Positive pallor. Musculoskeletal: No pedal edema. Full range of motion extremities. Const Vital Signs: 01/17/23 16:23 01/17/23 17:51 01/17/23 18:51 Temperature 97.8 F Temperature Source Temporal Pulse Rate 74 Pulse Rate [Lying] 71 Pulse Rate [Sitting (for 1 minute prior to obtaining)] Pulse Rate [Standing (for 1 minute prior to obtaining)] Respiratory Rate 16 Respiratory Effort Normal Non-Labored Respiratory Pattern Normal Blood Pressure 102/48 L Blood Pressure [Lying] 106/49 L Blood Pressure [Sitting (for 1 minute prior to obtaining)] Blood Pressure [Standing (for 1 minute prior to obtaining)] Blood Pressure Mean 66 Blood Pressure Mean [Lying] 68 Blood Pressure Mean [Sitting (for 1 minute prior to obtaining)] Blood Pressure Mean [Standing (for 1 minute prior to obtaining)] Pulse Ox 100 Oxygen Delivery Method Room Air 01/17/23 18:57 01/17/23 18:59 01/17/23 19:36 Temperature 97.9 F Temperature Source Temporal Pulse Rate 70 Pulse Rate [Lying] Pulse Rate [Sitting (for 1 minute prior to obtaining)] 71 Pulse Rate [Standing (for 1 minute prior to obtaining)] 71 Respiratory Rate 16 Respiratory Effort Respiratory Pattern Blood Pressure 103/50 L Blood Pressure [Lying] Blood Pressure [Sitting (for 1 minute prior to obtaining)] 105/47 L Blood Pressure [Standing (for 1 minute prior to obtaining)] 97/47 L Blood Pressure Mean 67 Blood Pressure Mean [Lying] Blood Pressure Mean [Sitting (for 1 minute prior to obtaining)] 66 Blood Pressure Mean [Standing (for 1 minute prior to obtaining)] 63 Pulse Ox 98 Oxygen Delivery Method Room Air 01/17/23 19:51 01/17/23 20:34 Temperature 97.6 F L Temperature Source Temporal Pulse Rate 70 70 Pulse Rate [Lying] Pulse Rate [Sitting (for 1 minute prior to obtaining)] Pulse Rate [Standing (for 1 minute prior to obtaining)] Respiratory Rate 16 20 H Respiratory Effort Respiratory Pattern Blood Pressure 95/47 L 100/45 L Blood Pressure [Lying] Blood Pressure [Sitting (for 1 minute prior to obtaining)] Blood Pressure [Standing (for 1 minute prior to obtaining)] Blood Pressure Mean 63 63 Blood Pressure Mean [Lying] Blood Pressure Mean [Sitting (for 1 minute prior to obtaining)] Blood Pressure Mean [Standing (for 1 minute prior to obtaining)] Pulse Ox 98 100 Oxygen Delivery Method Room Air Room Air MDM MDM MDM Narrative Medical decision making narrative: I will obtain new laboratory work including CBC, CMP, INR as he is on Coumadin, and orthostatics with type and screen. As he is going to be scoped by gastroenterology, rectal examination has been deferred and declined by the patient. I will review his laboratory work and speak with the hospitalist regarding admission for endoscopy by gastroenterology. Comprehensive work-up was pursued. EKG was obtained and interpreted which shows a ventricular paced rhythm at [address] changes. I reviewed his CBC which shows a normal white count of 7.0, hemoglobin low at 6.8, hematocrit 22.2. He had initially been typed and screened, but type and crossmatch for transfusion of 2 units was entered. He has normal platelet count of 235. INR shows elevated value at 3.6, but he does have a mechanical heart valve. In review of his CMP, he has a normal sodium of 137, potassium normal at 4.0, BUN is elevated at 67 with a creatinine of 7.67 consistent with his end-stage renal disease. Glucose is elevated at 120 with a normal anion gap of 9. AST and ALT are elevated at 72 and 71 respectively. At this point in time, given his anemia requiring transfusion, symptomatic anemia, and coagulopathy secondary to Coumadin, patient was discussed with the hospitalist, Dr. Rothman, for admission to [facility] for gastroenterology consultation for endoscopy. Prior to admission he was administered an IV bolus of Protonix of 40 mg. Patient is in stable condition. History & Record Review Discussion w/independent historian: Patient and Significant other Additional record(s) reviewed:: Prior labs Lab Data Attestation: I reviewed the patient's lab results. Labs: Laboratory Results - last 24 hr 01/17/23 01/17/23 01/17/23 17:40 17:40 17:40 WBC 7.0 RBC 2.14 L Hgb 6.8 L Hct 22.2 L MCV 103.7 H MCH 31.8 MCHC 30.6 L RDW Std Deviation 62.4 H RDW Coeff of Jennifer 16.6 H Plt Count 235 MPV 9.0 Immature Gran % (Auto) 0.600 Neut % (Auto) 61.7 Lymph % (Auto) 18.1 L [place] % (Auto) 12.9 H Eos % (Auto) 6.0 H Baso % (Auto) 0.7 Absolute Neuts (auto) 4.3 Absolute Lymphs (auto) 1.26 Nucleated RBC % 0 PT 35.8 H INR 3.6 Sodium 137 Potassium 4.0 Chloride 98 Carbon Dioxide 30.0 Anion Gap 9 BUN 67 H Creatinine 7.67 H* Estim Creat Clear Calc 8.02 Est GFR (MDRD) Af Amer 9 L Est GFR (MDRD) Non-Af 7 L BUN/Creatinine Ratio 8.7 L Glucose 120 H Calcium 9.2 Total Bilirubin 0.80 AST 72 H ALT 71 H Alkaline Phosphatase 481 H Total Protein 8.0 Albumin 3.2 Globulin 4.8 H Albumin/Globulin Ratio 0.7 L Blood Type Antibody Screen Crossmatch 01/17/23 01/17/23 17:40 17:40 WBC RBC Hgb Hct MCV MCH MCHC RDW Std Deviation RDW Coeff of Jennifer Plt Count MPV Immature Gran % (Auto) Neut % (Auto) Lymph % (Auto) [place] % (Auto) Eos % (Auto) Baso % (Auto) Absolute Neuts (auto) Absolute Lymphs (auto) Nucleated RBC % PT INR Sodium Potassium Chloride Carbon Dioxide Anion Gap BUN Creatinine Estim Creat Clear Calc Est GFR (MDRD) Af Amer Est GFR (MDRD) Non-Af BUN/Creatinine Ratio Glucose Calcium Total Bilirubin AST ALT Alkaline Phosphatase Total Protein Albumin Globulin Albumin/Globulin Ratio Blood Type A POSITIVE Antibody Screen NEGATIVE Crossmatch See Detail Discharge Plan Dx/Rx/DC Orders Clinical Impression: Anemia requiring transfusions, jail (current) use of 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, Symptomatic anemia, ESRD (end stage renal disease) on dialysis Disposition Disposition: Acute Care Hospital [facility]
[2023-01-17] MEDS: 0.9% Normal Saline 1,000 ML 1000 ML IV (17:48)
[2023-01-17 18:06] LABS: Absolute Lymphocyte Count 1.26 X10^3/uL (0.83-4.51); Absolute Neutrophil Count 4.3 X10^3/uL (2.0-7.7); Basophil# 0.05 X10^3/uL; Basophil% 0.7 % (0-1); Eosinophil# 0.42 X10^3/uL; Hematocrit 22.2 % (40-54); Hemoglobin 6.8 g/dL (13.0-16.5); Lymphocyte # 1.26 X10^3/ul (0.83-4.51); Lymphocyte % 18.1 % (19-41); Mean Corp Hgb Conc 30.6 g/dL (32-36); Mean Corpuscular Hgb 31.8 pg (27.0-32.0); Mean Corpuscular Volume 103.7 fL (80-94); Monocyte% 12.9 % (0-10); NRBC Flagged by Analyzer 0 % (0-5); Neutrophil # 4.29 X10^3/uL (2.7-7.7); Neutrophil % 61.7 % (47-70); Platelet Count 235 K/mm3 (150-450); RBC Distribution Width CV 16.6 % (11.6-14.6); RBC Distribution Width SD 62.4 fl (35.1-43.9); Red Blood Count 2.14 M/mm3 (4.6-6.2)
[2023-01-17 18:12] LABS: International Normalized Ratio 3.6; Prothrombin Time (Protime)PT. 35.8 SECONDS (11.7-14.9)
[2023-01-17 18:34] LABS: ALB/GLOB Ratio 0.7 RATIO (0.9-2.4); AST(SGOT) 72 U/L (15-37); Alanine Aminotransfer ALT/SGPT 71 U/L (16-61); Albumin, Serum 3.2 g/dL (3.2-5.0); Alkaline Phosphatase 481 U/L (45-117); Anion Gap 9 (5-15); BUN 67 mg/dL (7-18); BUN/Creat Ratio 8.7 RATIO (10-20); Calcium,Total 9.2 mg/dL (8.5-10.1); Chloride 98 mmol/L (98-107); Creatinine, Serum 7.67 mg/dL (0.70-1.30); EST Glomerular Filtration Rate 7 mL/min (>60); Est Glom Filt Rate - Afr Amer 9 mL/min (>60); Estimated Creatinine Clearance 8.02 ml/min; Globulin 4.8 g/dL (2.2-4.2); Glucose 120 mg/dL (74-106); Sodium Level 137 mmol/L (136-145)
--- NOTE | 2023-01-17 21:38 | HP.PCM.HOS_ITS ---
HPI - General General Date of Admission: 01/17/23 Date of Service: 01/17/23 Chief Complaint: Anemia HPI Narrative CHRISTIAN RICHMOND, is a 72 M with a significant history of liver cirrhosis; end- stage renal disease on dialysis; lymphoma; prior history of GI bleed; and mechanical aortic valve who presents to emergency department with anemia. On the same day of presentation ordered hemoglobin by his highballer returned as 7.4 (? 7.5) patient was notified by his GI office, Dr. Zheng's office to come to the emergency department as patient may need to be admitted for a scope. The patient reports fatigue ongoing for a while and that has not changed. He reports shortness of breath going for a while that has not changed. Emergency department doctor reported that patient refused rectal examination at the emergency department since the plan is for him to have a scope. [facility] Medical History Abnormal results of thyroid function studies Airway intubation performed without difficulty Anemia in chronic kidney disease Atherosclerotic heart disease of [place] coronary artery without angina pectoris Atrial flutter Bacterial endocarditis Benign essential hypertension Biventricular cardiac pacemaker in situ (~05/26/16) CAD (coronary artery disease) Cardiomyopathy in disease classified elsewhere Cardiopulmonary arrest with successful resuscitation Cirrhosis CKD stage G5/A1, GFR <15 and albumin creatinine ratio <30 mg/g Coagulopathy COVID-19 Diffuse large b-cell lymphoma, extranodal and solid organ sites Dyspnea Encounter for long-term (current) use of high-risk medication Endocarditis due to Staphylococcus Epilepsy ESRD (end stage renal disease) on dialysis Gout History of diffuse large B-cell lymphoma History of DVT (deep vein thrombosis) History of non-Hodgkin's lymphoma History of pacemaker History of rheumatic fever as a child HLD (hyperlipidemia) Hyperthyroidism Hypothyroidism (acquired) Infectious endocarditis 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 Mild cognitive impairment MRSA (methicillin resistant Staphylococcus aureus) infection Non-rheumatic mitral regurgitation Non-rheumatic mitral valve stenosis Non-ST elevation (NSTEMI) myocardial infarction MIA (obstructive sleep apnea) Other specified cardiac dysrhythmias Paroxysmal ventricular tachycardia Polyneuropathy Pure hypercholesterolemia Rheumatic aortic stenosis Rheumatic mitral insufficiency Sepsis TIA (transient ischemic attack) (~11/19/15) Vitamin D insufficiency Home Medications tamsulosin 0.4 mg capsule 0.4 mg PO DINNER prostate 05/19/21 [History Last Taken 01/09/22] levothyroxine 75 mcg tablet 75 mcg PO DAILY thyroid 08/24/21 [History Last Taken 01/10/22] rifaximin 550 mg tablet (Xifaxan) 550 mg PO BID diarrhea 01/10/22 [History Last Taken 01/09/22] vitamin B complex-vitamin C-folic acid 0.8 mg tablet (Nephro-Baltazar) 1 tab PO DAILY vitamin 01/10/22 [History Last Taken 01/09/22] alprazolam 1 mg tablet (Xanax) 0.5 mg PO QHS Sleep 02/01/22 [History Last Taken Unknown] isosorbide mononitrate 30 mg tablet,extended release 24 hr 30 mg PO DAILY Check with primary doctor 07/15/22 [History Last Taken Unknown] levetiracetam 250 mg tablet 250 mg PO BID #60 tabs 10/16/22 [Rx Last Taken Unknown] pantoprazole 40 mg tablet,delayed release 40 mg PO QAM #90 tabs 10/16/22 [Rx Last Taken Unknown] cyclobenzaprine 10 mg tablet 10 mg PO BID PRN PRN Muscle Pain 11/27/22 [History Last Taken Unknown] doxycycline hyclate 100 mg tablet 100 mg PO BID 11/27/22 [History Last Taken Unknown] fluconazole 200 mg tablet (Diflucan) 200 mg PO DAILY 11/27/22 [History Last Taken Unknown] isosorbide mononitrate 30 mg tablet,extended release 24 hr 30 mg PO DAILY 11/27/22 [History Last Taken Unknown] warfarin 1 mg tablet 1.5 mg PO QWEEK 01/17/23 [History Last Taken Unknown] warfarin 3 mg tablet 3 mg PO DAILY 01/17/23 [History Last Taken Unknown] Allergy/AdvReac Type Severity Reaction Status Date / Time No Known Allergies Allergy Verified 01/17/23 16:27 Family History Father CAD (coronary artery disease) CABG Brother CAD (coronary artery disease) CABG Mother Diabetes Sister Breast cancer Diabetes Sister Cancer breast Diabetes Surgical History dual chamber pacemaker implantation (~10/2010) History of aortic valve replacement (~08/2003) History of appendectomy History of atrioventricular chiquita ablation History of cholecystectomy History of evacuation of hematoma History of heart valve replacement with mechanical valve History of heart valve replacement with mechanical valve History of mechanical aortic valve replacement (~1986) History of mechanical aortic valve replacement (~08/24/03) History of mitral valve repair (~08/24/03) Social History household members: spouse housing: house current occupational status: retired current occupational exposures/hazards: No history of recent travel: No Smoking Status: Never smoker alcohol intake: never substance use type: does not use caffeine: No what type of physical activity do you participate in: weight training and other details: Nustep frequency: 3-4 times per week duration: 45-60 minutes/day seatbelt use: always do you feel safe at home: Yes ROS ROS Narrative Pertinent positives and pertinent negatives as noted in HPI. All other systems were reviewed and are negative Vital Signs Vital Signs Vital Signs: 01/17/23 16:23 01/17/23 17:51 01/17/23 18:51 Temperature 97.8 F Temperature Source Temporal Pulse Rate 74 Pulse Rate [Lying] 71 Pulse Rate [Sitting (for 1 minute prior to obtaining)] Pulse Rate [Standing (for 1 minute prior to obtaining)] Respiratory Rate 16 Respiratory Effort Normal Non-Labored Respiratory Pattern Normal Blood Pressure 102/48 L Blood Pressure [Lying] 106/49 L Blood Pressure [Sitting (for 1 minute prior to obtaining)] Blood Pressure [Standing (for 1 minute prior to obtaining)] Blood Pressure Mean 66 Blood Pressure Mean [Lying] 68 Blood Pressure Mean [Sitting (for 1 minute prior to obtaining)] Blood Pressure Mean [Standing (for 1 minute prior to obtaining)] Pulse Ox 100 Oxygen Delivery Method Room Air 01/17/23 18:57 01/17/23 18:59 01/17/23 19:36 Temperature 97.9 F Temperature Source Temporal Pulse Rate 70 Pulse Rate [Lying] Pulse Rate [Sitting (for 1 minute prior to obtaining)] 71 Pulse Rate [Standing (for 1 minute prior to obtaining)] 71 Respiratory Rate 16 Respiratory Effort Respiratory Pattern Blood Pressure 103/50 L Blood Pressure [Lying] Blood Pressure [Sitting (for 1 minute prior to obtaining)] 105/47 L Blood Pressure [Standing (for 1 minute prior to obtaining)] 97/47 L Blood Pressure Mean 67 Blood Pressure Mean [Lying] Blood Pressure Mean [Sitting (for 1 minute prior to obtaining)] 66 Blood Pressure Mean [Standing (for 1 minute prior to obtaining)] 63 Pulse Ox 98 Oxygen Delivery Method Room Air 01/17/23 19:51 01/17/23 20:34 Temperature 97.6 F L Temperature Source Temporal Pulse Rate 70 70 Pulse Rate [Lying] Pulse Rate [Sitting (for 1 minute prior to obtaining)] Pulse Rate [Standing (for 1 minute prior to obtaining)] Respiratory Rate 16 20 H Respiratory Effort Respiratory Pattern Blood Pressure 95/47 L 100/45 L Blood Pressure [Lying] Blood Pressure [Sitting (for 1 minute prior to obtaining)] Blood Pressure [Standing (for 1 minute prior to obtaining)] Blood Pressure Mean 63 63 Blood Pressure Mean [Lying] Blood Pressure Mean [Sitting (for 1 minute prior to obtaining)] Blood Pressure Mean [Standing (for 1 minute prior to obtaining)] Pulse Ox 98 100 Oxygen Delivery Method Room Air Room Air Weight Weight: 78.103 kg Body Mass Index (BMI) 26.9 Physical Exam Narrative Physical exam: General: Well-nourished, well-developed. Head: Normocephalic, atraumatic, no tenderness Eyes: Vision is grossly intact. EOMI ENT, no trauma, moist mucous membranes, no rhinorrhea Neck: Nontender, No thyromegaly. CVS: Regular rate and rhythm. Mechanical click heart sound. Respiratory : clear to auscultation bilaterally, chest wall nontender, no wheezing Abdomen: Soft, nontender, nondistended, normal bowel sounds, no masses : Deferred Back: Nontender, no CVA tenderness, no midline spinal tenderness, deformities, step-offs Extremities: Nontender full range of motion, no trauma Skin: Normal color, no trauma, abrasions Neuro: Alert, oriented, cranial nerves II through XII grossly intact. Psychiatry: Normal mood. Normal affect. Not depressed. Not anxious. Results Lab / Micro Data Attestation: I reviewed the patient's lab results. Result Diagrams: 01/18/23 04:09 01/17/23 17:40 Labs: Laboratory Results - last 24 hr 01/17/23 17:40: WBC 7.0, RBC 2.14 L, Hgb 6.8 L, Hct 22.2 L, MCV 103.7 H, MCH 31.8, MCHC 30.6 L, RDW Std Deviation 62.4 H, RDW Coeff of Jennifer 16.6 H, Plt Count 235, MPV 9.0, Immature Gran % (Auto) 0.600, Neut % (Auto) 61.7, Lymph % (Auto) 18.1 L, [place] % (Auto) 12.9 H, Eos % (Auto) 6.0 H, Baso % (Auto) 0.7, Absolute N euts (auto) 4.3, Absolute Lymphs (auto) 1.26, Nucleated RBC % 0 01/17/23 17:40: PT 35.8 H, INR 3.6 01/17/23 17:40: Sodium 137, Potassium 4.0, Chloride 98, Carbon Dioxide 30.0, Anion Gap 9, BUN 67 H, Creatinine 7.67 H*, Estim Creat Clear Calc 8.02, Est GFR (MDRD) Af Amer 9 L, Est GFR (MDRD) Non-Af 7 L, BUN/Creatinine Ratio 8.7 L, Glucose 120 H, Calcium 9.2, Total Bilirubin 0.80, AST 72 H, ALT 71 H, Alkaline Phosphatase 481 H, Total Protein 8.0, Albumin 3.2, Globulin 4.8 H, Albumin/Glob ulin Ratio 0.7 L 01/17/23 17:40: Blood Type A POSITIVE, Antibody Screen NEGATIVE 01/17/23 17:40: Crossmatch See Detail Assessment & Plan Assessment/Plan (1) Anemia requiring transfusions: (2) ABLA (acute blood loss anemia): PLAN: Plan Acute on chronic anemia requiring blood transfusion secondary to acute blood loss anemia. Fecal occult blood test ordered at the [facility] returned positive. Hemoglobin presentation was 6.8. Hemoglobin earlier on on the same day of presentation was 7.5. Baseline hemoglobin is from 10-12. EGD on 07/17/2022 showed portal hypertensive gastropathy. Biopsies were done. Gastric antral vascular ectasia with bleeding. He had treatment with argon plasma coagulation. Also he had duodenitis. 2 units of packed red blood cells was ordered emergency department to be transfused. Check H&H 1 hour after second liter of blood has been transfused. Hold Coumadin. GI consult. N.p.o. after midnight. With hypotension after 2 units of blood has been given octreotide IV bolus and drip ordered. Hypotension Likely secondary to anemia With 2 units of blood patient systolic blood pressure was less than 90 with MAP of 55. 250 mL of normal saline bolus given. Midodrine ordered. Octreotide ordered. Hold home blood pressure medications. Trend blood pressures. Aortic valve replacement with supratherapeutic INR INR on presentation was 3.6. Trend. End-stage renal disease on dialysis Renal diet Nephrology consult DVT prophylaxis Not indicated as patient is supratherapeutic on INR. Charges/Coding Visit Charges Inpatient E&M: 91111 Init Hosp L3
--- NOTE | 2023-01-17 23:30 | EX.PCM.CON.G ---
HPI Consult Data Date of Consult: 01/17/23 HPI Narrative Reason for Consultation: Anemia HPI Narrative: CHRISTIAN RICHMOND, is a 72 M who presents?72 M who presents for the evaluation of worsening anemia.? He is known to the GI service.? I saw him previously for diagnosis of anemia.? H He gets his dialysis on Sunday, , Sunday.? She states that typically after dialysis he does not do much for the rest of the day and feels generally weak.? The patient today seems to be a little bit weaker per the he is not really communicating with her very well but he is awake.? ?He has a history of visual disorder but is not having seizures.? Patient's notes that his blood pressure's were low at dialysis today, and she states they did not discontinue dialysis even though his pressures were low.? She states that the blood pressures were as low as 84/35.? She does recall that his systolic pressures usually about 115 and that they try to keep his blood pressure low because of his prosthetic heart valve which has been replaced twice.? ?He is on Coumadin and she states that he has been having trouble getting it to a therapeutic range.? Patient has not complained of chest pain or shortness of breath.? Has not had a fever.? He has not had nausea or vomiting.? The patient's does state that he looks a little bit more jaundiced than usual.? He has a history of liver failure and sees a specialist at [facility].? He is on lactulose for a very long time but his states now he is on Xifaxan.? There is been no medication changes.? She states that the patient has had a UTI in the past and he still makes urine 3 times a day.? He has not complained of dysuria or urinary frequency.? He has a history of end-stage renal disease and gets dialysis on Sunday and Sunday. He was discovered to have a hemoglobin of 7.5.? His INR was discovered to be 3.4.? His hemoglobin usually ranges between 10 and 11.? I was consulted to see him due to worsening anemia and history of cirrhosis.?? Previous consultation when I saw him was for lower GI bleeding and altered mental status.? 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 [facility] Medical History Abnormal results of thyroid function studies Airway intubation performed without difficulty Anemia in chronic kidney disease Atherosclerotic heart disease of [place] coronary artery without angina pectoris Atrial flutter Bacterial endocarditis Benign essential hypertension Biventricular cardiac pacemaker in situ (~05/26/16) CAD (coronary artery disease) Cardiomyopathy in disease classified elsewhere Cardiopulmonary arrest with successful resuscitation Cirrhosis CKD stage G5/A1, GFR <15 and albumin creatinine ratio <30 mg/g Coagulopathy COVID-19 Diffuse large b-cell lymphoma, extranodal and solid organ sites Dyspnea Encounter for long-term (current) use of high-risk medication Endocarditis due to Staphylococcus Epilepsy ESRD (end stage renal disease) on dialysis Gout History of diffuse large B-cell lymphoma History of DVT (deep vein thrombosis) History of non-Hodgkin's lymphoma History of pacemaker History of rheumatic fever as a child HLD (hyperlipidemia) Hyperthyroidism Hypothyroidism (acquired) Infectious endocarditis Iron deficiency residential (current) use of 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 Mild cognitive impairment MRSA (methicillin resistant Staphylococcus aureus) infection Non-rheumatic mitral regurgitation Non-rheumatic mitral valve stenosis Non-ST elevation (NSTEMI) myocardial infarction MIA (obstructive sleep apnea) Other specified cardiac dysrhythmias Paroxysmal ventricular tachycardia Polyneuropathy Pure hypercholesterolemia Rheumatic aortic stenosis Rheumatic mitral insufficiency Sepsis TIA (transient ischemic attack) (~11/19/15) Vitamin D insufficiency Home Medications tamsulosin 0.4 mg capsule 0.4 mg PO DINNER prostate 05/19/21 [History Last Taken 01/09/22] levothyroxine 75 mcg tablet 75 mcg PO DAILY thyroid 08/24/21 [History Last Taken 01/10/22] rifaximin 550 mg tablet (Xifaxan) 550 mg PO BID diarrhea 01/10/22 [History Last Taken 01/09/22] vitamin B complex-vitamin C-folic acid 0.8 mg tablet (Nephro-Baltazar) 1 tab PO DAILY vitamin 01/10/22 [History Last Taken 01/09/22] alprazolam 1 mg tablet (Xanax) 0.5 mg PO QHS Sleep 02/01/22 [History Last Taken Unknown] isosorbide mononitrate 30 mg tablet,extended release 24 hr 30 mg PO DAILY Check with primary doctor 07/15/22 [History Last Taken Unknown] levetiracetam 250 mg tablet 250 mg PO BID #60 tabs 10/16/22 [Rx Last Taken Unknown] pantoprazole 40 mg tablet,delayed release 40 mg PO QAM #90 tabs 10/16/22 [Rx Last Taken Unknown] cyclobenzaprine 10 mg tablet 10 mg PO BID PRN PRN Muscle Pain 11/27/22 [History Last Taken Unknown] doxycycline hyclate 100 mg tablet 100 mg PO BID 11/27/22 [History Last Taken Unknown] fluconazole 200 mg tablet (Diflucan) 200 mg PO DAILY 11/27/22 [History Last Taken Unknown] isosorbide mononitrate 30 mg tablet,extended release 24 hr 30 mg PO DAILY 11/27/22 [History Last Taken Unknown] warfarin 1 mg tablet 1.5 mg PO QWEEK 01/17/23 [History Last Taken Unknown] warfarin 3 mg tablet 3 mg PO DAILY 01/17/23 [History Last Taken Unknown] Allergy/AdvReac Type Severity Reaction Status Date / Time No Known Allergies Allergy Verified 01/17/23 16:27 Family History Father CAD (coronary artery disease) CABG Brother CAD (coronary artery disease) CABG Mother Diabetes Sister Breast cancer Diabetes Sister Cancer breast Diabetes Surgical History dual chamber pacemaker implantation (~10/2010) History of aortic valve replacement (~08/2003) History of appendectomy History of atrioventricular chiquita ablation History of cholecystectomy History of evacuation of hematoma History of heart valve replacement with mechanical valve History of heart valve replacement with mechanical valve History of mechanical aortic valve replacement (~1986) History of mechanical aortic valve replacement (~08/24/03) History of mitral valve repair (~08/24/03) Social History household members: spouse housing: house current occupational status: retired current occupational exposures/hazards: No history of recent travel: No Smoking Status: Never smoker alcohol intake: never substance use type: does not use caffeine: No what type of physical activity do you participate in: weight training and other details: Nustep frequency: 3-4 times per week duration: 45-60 minutes/day seatbelt use: always do you feel safe at home: Yes ROS Constitutional Constitutional: Denies chills or fever(s) Eyes Eyes: Denies loss of vision ENT HEENT: Denies nasal congestion Cardiovascular Cardiovascular: Denies chest pain, dyspnea on exertion or edema Respiratory/Chest Respiratory/Chest: Denies dyspnea on exertion, hemoptysis or productive cough Gastrointestinal Gastrointestinal: Denies abdominal pain, anorexia, hematemesis, hematochezia, melena or nausea Genitourinary Genitourinary: Denies change in urinary stream Musculoskeletal Musculoskeletal: Reports other Details: generalized weakness Psychiatric Psychiatric: Denies anxiety or confusion Endocrine Endocrinology: Reports fatigue Hematologic/Lymphatic Hematologic/Lymphatic: Reports easy bleeding and easy bruising Physical Exam Const alert and oriented x3 Constitutional Narrative: at bedside General Appearance: well developed Resp Auscultation: crackles left Cardio regular rate Cardio Narrative: paced GI non-tender and non-distended Auscultation: normoactive bowel sounds Palpation: soft Back/Spine normal ROM Extremity full ROM Skin no rashes or lesions noted and no wounds Neuro CN's II-XII intact bilaterally Sensorium / Orientation: awake and alert Psych cooperative Lab / Micro Data Result Diagrams: 01/18/23 04:09 01/18/23 04:09 Labs: Laboratory Results - last 24 hr 01/17/23 17:40: WBC 7.0, RBC 2.14 L, Hgb 6.8 L, Hct 22.2 L, MCV 103.7 H, MCH 31.8, MCHC 30.6 L, RDW Std Deviation 62.4 H, RDW Coeff of Jennifer 16.6 H, Plt Count 235, MPV 9.0, Immature Gran % (Auto) 0.600, Neut % (Auto) 61.7, Lymph % (Auto) 18.1 L, [place] % (Auto) 12.9 H, Eos % (Auto) 6.0 H, Baso % (Auto) 0.7, Absolute Neuts (auto) 4.3, Absolute Lymphs (auto) 1.26, Nucleated RBC % 0 01/17/23 17:40: PT 35.8 H, INR 3.6 01/17/23 17:40: Sodium 137, Potassium 4.0, Chloride 98, Carbon Dioxide 30.0, Anion Gap 9, BUN 67 H, Creatinine 7.67 H*, Estim Creat Clear Calc 8.02, Est GFR (MDRD) Af Amer 9 L, Est GFR (MDRD) Non-Af 7 L, BUN/Creatinine Ratio 8.7 L, Glucose 120 H, Calcium 9.2, Total Bilirubin 0.80, AST 72 H, ALT 71 H, Alkaline Phosphatase 481 H, Total Protein 8.0, Albumin 3.2, Globulin 4.8 H, Albumin/Globulin Ratio 0.7 L 01/17/23 17:40: Blood Type A POSITIVE, Antibody Screen NEGATIVE 01/17/23 17:40: Crossmatch See Detail 01/18/23 04:09: PT 33.9 H, INR 3.4 01/18/23 04:09: Sodium 135 L, Potassium 4.6, Chloride 98, Carbon Dioxide 26.0, Anion Gap 11, BUN 76 H, Creatinine 8.14 H*, Estim Creat Clear Calc 7.56, Est GFR (MDRD) Af Amer 8 L, Est GFR (MDRD) Non-Af 7 L, BUN/Creatinine Ratio 9.3 L, Glucose 100, Calcium 8.8 01/18/23 04:09: Hgb 9.2 L Micro: Microbiology 01/18/23 00:21 Stool Stool Occult Blood (SANDRA) - Final Occult Blood Positive Assessment & Plan Assessment/Plan (1) GI bleed: PLAN: Differential diagnosis for acute blood loss anemia would be GI bleed secondary to portal gastropathy from a supratherapeutic INR, gastric esophageal varices or duodenal varices, angiodysplasia, gastric antral vascular ectasia, peptic ulcer disease secondary to cirrhosis. Patient undergoing upper endoscopy to evaluate his upper GI tract. He is INR supratherapeutic. Recommend to hold anticoagulation. Also his potassium is elevated 5.9 recommend Kayexalate and evaluation for hemodialysis. Recommend PPI drip and octreotide along with ceftriaxone 1 g IV every 24 hours. (2) Cirrhosis: PLAN: As per the family he has a history of nonalcoholic steatohepatitis resulting in cirrhosis. He was mildly encephalopathic which is improved. He is not significantly more jaundiced than he previously was on last admission when I saw him. His current meld is 12 and he is a child [place] C. That makes him very high risk for any procedures. However if his hemoglobin continues to be down after transfusion and correction of his INR he will likely need emergent endoscopy with the caveat that he carries a high morbidity and mortality. Charges/Coding Visit Charges Inpatient E&M: 29737 Init Hosp L3
[2023-01-18] VITALS (21 sets, daily range): BP systolic 87–143; BP diastolic 38–84; PULSE 69–77; RESP 16–18; TEMP 36.3–36.9; O2SAT 94–100; BMI 27.1
[2023-01-18 04:14] LABS: Hemoglobin 9.2 g/dL (13.0-16.5)
[2023-01-18 04:23] LABS: International Normalized Ratio 3.4; Prothrombin Time (Protime)PT. 33.9 SECONDS (11.7-14.9)
[2023-01-18 04:52] LABS: Anion Gap 11 (5-15); BUN 76 mg/dL (7-18); BUN/Creat Ratio 9.3 RATIO (10-20); Calcium,Total 8.8 mg/dL (8.5-10.1); Chloride 98 mmol/L (98-107); Creatinine, Serum 8.14 mg/dL (0.70-1.30); EST Glomerular Filtration Rate 7 mL/min (>60); Est Glom Filt Rate - Afr Amer 8 mL/min (>60); Estimated Creatinine Clearance 7.56 ml/min; Glucose 100 mg/dL (74-106); Potassium 4.6 mmol/L (3.5-5.1); Sodium Level 135 mmol/L (136-145)
[2023-01-18] MEDS: Midodrine HCl 5 MG Tablet 10 MG PO ×3 (05:21→18:51)
[2023-01-18] MEDS: Octreotide 0.1 MG/ML ML 0.05 MG IV (05:23)
--- NOTE | 2023-01-18 08:49 | PCM.CONS.R ---
Assessment & Plan Assessment/Plan (1) ESRD (end stage renal disease) on dialysis: PLAN: recently completed training for home dialysis. Last dialysis Sunday. Dialysis arranged today (2) Anemia requiring transfusions: PLAN: NARENDRA, iron as needed. 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 Received blood transfusion. Noticed fatigue but other than thaty was fine. Dark stools while on iron. On NARENDRA with dialysis. ESRD due to ATN. Last dialysis was Sunday. He has completed his home dialysis training and was scheduled to go home today. Went to [facility] yesterday for followup with liver specialist. Saw Dr Zheng who avised pt to be admitted for anemia. He is on anticoagulation for afib, prosthetic valve [facility] Medical History Abnormal results of thyroid function studies Airway intubation performed without difficulty Anemia in chronic kidney disease Atherosclerotic heart disease of [place] coronary artery without angina pectoris Atrial flutter Bacterial endocarditis Benign essential hypertension Biventricular cardiac pacemaker in situ (~05/26/16) CAD (coronary artery disease) Cardiomyopathy in disease classified elsewhere Cardiopulmonary arrest with successful resuscitation Cirrhosis CKD stage G5/A1, GFR <15 and albumin creatinine ratio <30 mg/g Coagulopathy COVID-19 Diffuse large b-cell lymphoma, extranodal and solid organ sites Dyspnea Encounter for long-term (current) use of high-risk medication Endocarditis due to Staphylococcus Epilepsy ESRD (end stage renal disease) on dialysis Gout History of diffuse large B-cell lymphoma History of DVT (deep vein thrombosis) History of non-Hodgkin's lymphoma History of pacemaker History of rheumatic fever as a child HLD (hyperlipidemia) Hyperthyroidism Hypothyroidism (acquired) Infectious endocarditis Iron deficiency residential (current) use of 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 Mild cognitive impairment MRSA (methicillin resistant Staphylococcus aureus) infection Non-rheumatic mitral regurgitation Non-rheumatic mitral valve stenosis Non-ST elevation (NSTEMI) myocardial infarction MIA (obstructive sleep apnea) Other specified cardiac dysrhythmias Paroxysmal ventricular tachycardia Polyneuropathy Pure hypercholesterolemia Rheumatic aortic stenosis Rheumatic mitral insufficiency Sepsis TIA (transient ischemic attack) (~11/19/15) Vitamin D insufficiency Home Medications tamsulosin 0.4 mg capsule 0.4 mg PO DINNER prostate 05/19/21 [History Last Taken 01/09/22] levothyroxine 75 mcg tablet 75 mcg PO DAILY thyroid 08/24/21 [History Last Taken 01/10/22] rifaximin 550 mg tablet (Xifaxan) 550 mg PO BID diarrhea 01/10/22 [History Last Taken 01/09/22] vitamin B complex-vitamin C-folic acid 0.8 mg tablet (Nephro-Baltazar) 1 tab PO DAILY vitamin 01/10/22 [History Last Taken 01/09/22] alprazolam 1 mg tablet (Xanax) 0.5 mg PO QHS Sleep 02/01/22 [History Last Taken Unknown] isosorbide mononitrate 30 mg tablet,extended release 24 hr 30 mg PO DAILY Check with primary doctor 07/15/22 [History Last Taken Unknown] levetiracetam 250 mg tablet 250 mg PO BID #60 tabs 10/16/22 [Rx Last Taken Unknown] pantoprazole 40 mg tablet,delayed release 40 mg PO QAM #90 tabs 10/16/22 [Rx Last Taken Unknown] cyclobenzaprine 10 mg tablet 10 mg PO BID PRN PRN Muscle Pain 11/27/22 [History Last Taken Unknown] doxycycline hyclate 100 mg tablet 100 mg PO BID 11/27/22 [History Last Taken Unknown] fluconazole 200 mg tablet (Diflucan) 200 mg PO DAILY 11/27/22 [History Last Taken Unknown] isosorbide mononitrate 30 mg tablet,extended release 24 hr 30 mg PO DAILY 11/27/22 [History Last Taken Unknown] warfarin 1 mg tablet 1.5 mg PO QWEEK 01/17/23 [History Last Taken Unknown] warfarin 3 mg tablet 3 mg PO DAILY 01/17/23 [History Last Taken Unknown] Allergy/AdvReac Type Severity Reaction Status Date / Time No Known Allergies Allergy Verified 01/17/23 16:27 Family History Father CAD (coronary artery disease) CABG Brother CAD (coronary artery disease) CABG Mother Diabetes Sister Breast cancer Diabetes Sister Cancer breast Diabetes Surgical History dual chamber pacemaker implantation (~10/2010) History of aortic valve replacement (~08/2003) History of appendectomy History of atrioventricular chiquita ablation History of cholecystectomy History of evacuation of hematoma History of heart valve replacement with mechanical valve History of heart valve replacement with mechanical valve History of mechanical aortic valve replacement (~1986) History of mechanical aortic valve replacement (~08/24/03) History of mitral valve repair (~08/24/03) Social History household members: spouse housing: house current occupational status: retired current occupational exposures/hazards: No history of recent travel: No Smoking Status: Never smoker alcohol intake: never substance use type: does not use caffeine: No what type of physical activity do you participate in: weight training and other details: Nustep frequency: 3-4 times per week duration: 45-60 minutes/day seatbelt use: always do you feel safe at home: Yes ROS Constitutional Constitutional: Denies chills or fever(s) Eyes Eyes: Denies loss of vision ENT HEENT: Denies nasal congestion Cardiovascular Cardiovascular: Denies chest pain, dyspnea on exertion or edema Respiratory/Chest Respiratory/Chest: Denies dyspnea on exertion, hemoptysis or productive cough Gastrointestinal Gastrointestinal: Denies abdominal pain, anorexia, hematemesis, hematochezia, melena or nausea Genitourinary Genitourinary: Denies change in urinary stream Musculoskeletal Musculoskeletal: Reports other Details: generalized weakness Psychiatric Psychiatric: Denies anxiety or confusion Endocrine Endocrinology: Reports fatigue Hematologic/Lymphatic Hematologic/Lymphatic: Reports easy bleeding and easy bruising Physical Exam Const alert and oriented x3 Constitutional Narrative: at bedside General Appearance: well developed Resp Auscultation: crackles left Cardio regular rate Cardio Narrative: paced GI non-tender and non-distended Auscultation: normoactive bowel sounds Palpation: soft Back/Spine normal ROM Extremity full ROM Skin no rashes or lesions noted and no wounds Neuro CN's II-XII intact bilaterally Sensorium / Orientation: awake and alert Psych cooperative Lab / Micro Data Result Diagrams: 01/18/23 04:09 01/18/23 04:09 Labs: Laboratory Results - last 24 hr 01/17/23 17:40: WBC 7.0, RBC 2.14 L, Hgb 6.8 L, Hct 22.2 L, MCV 103.7 H, MCH 31.8, MCHC 30.6 L, RDW Std Deviation 62.4 H, RDW Coeff of Jennifer 16.6 H, Plt Count 235, MPV 9.0, Immature Gran % (Auto) 0.600, Neut % (Auto) 61.7, Lymph % (Auto) 18.1 L, [place] % (Auto) 12.9 H, Eos % (Auto) 6.0 H, Baso % (Auto) 0.7, Absolute Neuts (auto) 4.3, Absolute Lymphs (auto) 1.26, Nucleated RBC % 0 01/17/23 17:40: PT 35.8 H, INR 3.6 01/17/23 17:40: Sodium 137, Potassium 4.0, Chloride 98, Carbon Dioxide 30.0, Anion Gap 9, BUN 67 H, Creatinine 7.67 H*, Estim Creat Clear Calc 8.02, Est GFR (MDRD) Af Amer 9 L, Est GFR (MDRD) Non-Af 7 L, BUN/Creatinine Ratio 8.7 L, Glucose 120 H, Calcium 9.2, Total Bilirubin 0.80, AST 72 H, ALT 71 H, Alkaline Phosphatase 481 H, Total Protein 8.0, Albumin 3.2, Globulin 4.8 H, Albumin/Globulin Ratio 0.7 L 01/17/23 17:40: Blood Type A POSITIVE, Antibody Screen NEGATIVE 01/17/23 17:40: Crossmatch See Detail 01/18/23 04:09: PT 33.9 H, INR 3.4 01/18/23 04:09: Sodium 135 L, Potassium 4.6, Chloride 98, Carbon Dioxide 26.0, Anion Gap 11, BUN 76 H, Creatinine 8.14 H*, Estim Creat Clear Calc 7.56, Est GFR (MDRD) Af Amer 8 L, Est GFR (MDRD) Non-Af 7 L, BUN/Creatinine Ratio 9.3 L, Glucose 100, Calcium 8.8 01/18/23 04:09: Hgb 9.2 L Micro: Microbiology 01/18/23 00:21 Stool Stool Occult Blood (SANDRA) - Final Occult Blood Positive
--- NOTE | 2023-01-18 09:20 | PCM.PN.HOSP ---
Reason for Visit Reason for Visit: Diagnoses Acute posthemorrhagic anemia (01/17/23) Anemia, unspecified (01/17/23) Subjective Subjective Reported no significant complaints this morning, no chest pain or shortness of breath. Objective Data Objective Data Vital Signs: Vital Signs Temp Pulse Resp BP Pulse Ox O2 Del Method 98.4 F 76 16 117/56 L 95 Room Air 01/18/23 06:15 01/18/23 07:45 01/18/23 06:15 01/18/23 06:15 01/18/23 07:45 01/18/23 07:45 Oxygen Delivery Method Room Air Weight: 78.6 kg Body Mass Index (BMI) 27.1 Intake & Output: Intake and Output for Last 24 Hours 01/16/23 01/17/23 01/18/23 23:59 23:59 23:59 Intake Total 600 / 600 275 / 275 Balance 600 / 600 275 / 275 Lab / Micro Data Result Diagrams: 01/18/23 04:09 01/18/23 04:09 Labs: Laboratory Results - last 24 hr 01/17/23 17:40: WBC 7.0, RBC 2.14 L, Hgb 6.8 L, Hct 22.2 L, MCV 103.7 H, MCH 31.8, MCHC 30.6 L, RDW Std Deviation 62.4 H, RDW Coeff of Jennifer 16.6 H, Plt Count 235, MPV 9.0, Immature Gran % (Auto) 0.600, Neut % (Auto) 61.7, Lymph % (Auto) 18.1 L, [place] % (Auto) 12.9 H, Eos % (Auto) 6.0 H, Baso % (Auto) 0.7, Absolute Neuts (auto) 4.3, Absolute Lymphs (auto) 1.26, Nucleated RBC % 0 01/17/23 17:40: PT 35.8 H, INR 3.6 01/17/23 17:40: Sodium 137, Potassium 4.0, Chloride 98, Carbon Dioxide 30.0, Anion Gap 9, BUN 67 H, Creatinine 7.67 H*, Estim Creat Clear Calc 8.02, Est GFR (MDRD) Af Amer 9 L, Est GFR (MDRD) Non-Af 7 L, BUN/Creatinine Ratio 8.7 L, Glucose 120 H, Calcium 9.2, Total Bilirubin 0.80, AST 72 H, ALT 71 H, Alkaline Phosphatase 481 H, Total Protein 8.0, Albumin 3.2, Globulin 4.8 H, Albumin/Globulin Ratio 0.7 L 01/17/23 17:40: Blood Type A POSITIVE, Antibody Screen NEGATIVE 01/17/23 17:40: Crossmatch See Detail 01/18/23 04:09: PT 33.9 H, INR 3.4 01/18/23 04:09: Sodium 135 L, Potassium 4.6, Chloride 98, Carbon Dioxide 26.0, Anion Gap 11, BUN 76 H, Creatinine 8.14 H*, Estim Creat Clear Calc 7.56, Est GFR (MDRD) Af Amer 8 L, Est GFR (MDRD) Non-Af 7 L, BUN/Creatinine Ratio 9.3 L, Glucose 100, Calcium 8.8 01/18/23 04:09: Hgb 9.2 L Micro: Microbiology 01/18/23 00:21 Stool Stool Occult Blood (SANDRA) - Final Occult Blood Positive Physical Exam Narrative General: Alert, oriented, no apparent distress HEENT: Atraumatic, normocephalic Eyes: Anicteric, normal conjunctiva, extraocular movements grossly intact Neck: Supple Respiratory: Clear to auscultation bilaterally, normal respiratory effort Cardiovascular: Regular rate and rhythm GI: Soft, nontender, nondistended Extremities: No edema Musculoskeletal: Moving all extremities Neuro: No overt focal neurological deficits Skin: No rashes appreciated Psych: Cooperative Assessment & Plan Assessment/Plan (1) GI bleed: PLAN: Plan #Acute blood loss anemia/acute on chronic anemia requiring blood transfusion secondary to GI bleed -Hemoglobin history of 6.8 requiring units of packed red blood cells with hemoglobin this a.m. of 9.2 -Placed on octreotide drip and PPI drip and it was recommended to hold anticoagulation -FOBT was positive -Status post endoscopy with Dr. Zheng 01/18 which showed red blood in the gastric body, portal hypertensive gastropathy and a single bleeding angiodysplastic lesion in the stomach which was treated with a heater probe. Was recommended for full liquid diet to continue current medications -On Coumadin at home for mechanical aortic valve with an INR 3.4 this a.m., continue to trend INR. Coumadin has been on hold due to GI bleed -Remains on PPI and octreotide drips #Mechanical aortic valve replacement/history of mitral valve repair -Mechanical aortic valve is a 21 mm [place] -Mitral valve repair #28 Brady #Atrial fibrillation status post AV chiquita ablation -Has permanent pacemaker -Currently in sinus rhythm #End-stage renal disease on dialysis -Nephrology consulted -Continue midodrine 3 times daily #Heart failure with preserved ejection fraction -Echo 12/06/2022 with stage II diastolic dysfunction -Follows with Dr. Grullon on an outpatient basis -Monitor respiratory and fluid status -Daily weights #Cirrhosis secondary to [place] -Liver enzymes mildly elevated -We will trend CMP -Continue rifaximin #Hypothyroidism -Continue Synthroid #Lymphoma #DVT ppx: Is therapeutic on Coumadin, will add SCDs Mimi Centeno MD Time spent in the patient's overall evaluation,decision-making process, review of diagnostic data, adjustment of management, discussion with other providers, nursing nursing and ancillary staff involved in patient's care documentation, 30 minutes Charges/Coding Visit Charges Inpatient E&M: 79968 Subs Hosp L2
[2023-01-18] MEDS: Epoetin Alfa epbx 10,000 UNITS/ML 10000 UNIT SC (10:43)
--- NOTE | 2023-01-18 12:36 | OP.EGD_ITS ---
Patient Name: Ravindra Amador Procedure Date: 01/18/2023 12:16 PM Date of : 1950 Age: 72 Procedure: Upper GI endoscopy Indications: Melena Providers: Kody Zheng DO Medicines: Monitored Anesthesia Care Patient Profile: This is a 72 year old male. Refer to note in patient chart for documentation of history and physical. Patient has symptoms of acute nausea. Complications: No immediate complications. Procedure: Pre-Anesthesia Assessment: - Prior to the procedure, a History and Physical was performed, and patient medications and allergies were reviewed. The risks and benefits of the procedure and the sedation options and risks were discussed with the patient. All questions were answered and informed consent was obtained. Patient identification and proposed procedure were verified by the physician in the pre-procedure area. Mental Status Examination: alert and oriented. Airway Examination: normal oropharyngeal airway and neck mobility. Respiratory Examination: clear to auscultation. CV Examination: normal. Prophylactic Antibiotics: The patient does not require prophylactic antibiotics. Prior Anticoagulants: The patient has taken no previous anticoagulant or antiplatelet agents. ASA Grade Assessment: II - A patient with mild systemic disease. After reviewing the risks and benefits, the patient was deemed in satisfactory condition to undergo the procedure. The anesthesia plan was to use monitored anesthesia care (MAC). Immediately prior to administration of medications, the patient was re-assessed for adequacy to receive sedatives. The heart rate, respiratory rate, oxygen saturations, blood pressure, adequacy of pulmonary ventilation, and response to care were monitored throughout the procedure. The physical status of the patient was re-assessed after the procedure. After obtaining informed consent, the endoscope was passed under direct vision. Throughout the procedure, the patient's blood pressure, pulse, and oxygen saturations were monitored continuously. The Endoscope was introduced through the mouth, and advanced to the second part of duodenum. The upper GI endoscopy was accomplished without difficulty. The patient tolerated the procedure well. Scope In: 12:25:10 PM Scope Out: 12:30:12 PM Total Procedure Duration Time 0 hours 5 minutes 2 seconds Findings: No gross lesions were noted in the entire esophagus. Red blood was found in the gastric body. Moderate portal hypertensive gastropathy was found in the cardia. A single 5 mm bleeding angiodysplastic lesion was found in the gastric fundus. Coagulation for hemostasis using heater probe was successful. Estimated blood loss was minimal. The second portion of the duodenum was normal. Impression: - No gross lesions in esophagus. - Red blood in the gastric body. - 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 gastropathy. - A single bleeding angiodysplastic lesion in the stomach. Treated with a heater probe. - Normal second portion of the duodenum. - No specimens collected. Recommendation: - Return patient to [facility] for [facility] care. - Full liquid diet. - Continue present medications. Procedure Code(s): --- Professional --- 75475, Esophagogastroduodenoscopy, flexible, transoral; with control of bleeding, any method CPT copyright 2017 [employer]. All rights reserved. The codes documented in this report are preliminary and upon veterinarian epidemiologist review may be revised to meet current compliance requirements. Kody Zheng DO 01/18/2023 12:35:45 PM This report has been signed electronically. Number of Addenda: 0 Note Initiated On: 01/18/2023 12:16 PM
--- NOTE | 2023-01-18 12:37 | OP.CCLET_ITS ---
01/18/2023 David Menjivar [address] [facility] [place] [address] Re : Upper GI endoscopy procedure for Ravindra Amador Dear Dr. Menjivar This procedure was performed on January. My impressions and recommendations are as follows: Impressions : - No gross lesions in esophagus. - Red blood in the gastric body. - 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 gastropathy. - A single bleeding angiodysplastic lesion in the stomach. Treated with a heater probe. - Normal second portion of the duodenum. - No specimens collected. Recommendations : - Return patient to [facility] for [facility] care. - Full liquid diet. - Continue present medications. My findings are described in the full procedure note, which is enclosed. If I can be of further assistance, please feel free to contact me at . Sincerely, Kody Zheng, 01/18/2023 12:35:45 PM This report has been signed electronically.
--- NOTE | 2023-01-18 13:50 | CASEMGMT ---
RN DHIRAJ Face to Face with patient for initial transition planning/care coordination assessment. RN CM introduced self and role at [facility]. Patient lying in bed, alert and oriented, at bedside. Patient willing to participate in assessment and is able to answer all questions appropriately. Care providers, pharmacy, and demographics verified. Patient wishes to discharge home, denies need for home health at this time. Patient states he has no further needs or concerns at this time. CM to follow for discharge planning needs that may arise. PCP: [facility] Specialists: Dwight, ENT; Mitchel, urgent care; Pako, medical records library professor; Norm, GI; Johnny, oncologist; Kvng, spike driver Preferred Pharmacy: [facility] Insurance: [facility], [facility] Prescription Benefit: yes Living Will/HPOA: yes, Bre Amador LNOK: Living Arrangements: Patient lives with in a single story condo with 2 steps and railing to enter the home. Patient is independent at home. Transportation: self, DME/HHC: Patient has shower chair, raised toilet, cane, crutches, grab bars, walker, rollator, wheelchair, and pusle ox at home. Patient attends HD at [facility] but was to be setup with home HD today. Patient has been to [facility] in the past. Patient has had [facility] in the past. Disposition Plan: Patient to discharge home with family support and follow--up plans in place. Erica MARIE, RN, CM
--- NOTE | 2023-01-18 15:08 | CHAPLAIN ---
Type of Pastoral Visit _x__ Initial Visit ___ Follow-up Visit ___ On-call Visit ___ General Patient Visit ___ Spiritual Assessment ___ Family Conference ___ Bereavement ___ Rapid Response ___ Code Blue ___ Other (describe below) Pastoral Care Referral From _x__ Patient ___ Family ___ Nurse ___ Physician ___ Housekeeping Staff ___ Ship Design Teacher ___ Other (describe below) Sacrament/Intervention _x__ Active listening ___ Anointing ___ Orthodox ___ Bereavement ___ Communion ___ Leda exploration ___ ___ Life review ___ Prayer ___ Reconciliation ___ Sacrament of Sick _x__ Supportive presence ___ Wedding ___ Other (describe below) Pastoral Comments patient is receiving dialysis but is alert and able to talk freely; spouse and son are with pt; spouse does much of the talking about pt history; pt is receptive to spiritual care but states that he is not in need of anything at this time; expressions of thankfulness for thoughtful concern
--- NOTE | 2023-01-18 15:13 | CASEMGMT ---
Patient has a Healthcare Power of [employer] Professional on file at [facility]. Patient's is his Healthcare Power of [employer] Professional. Patient does not have a Healthcare Living Will on file at [facility]. Chata BUSH
[2023-01-18] MEDS: Tamsulosin HCl 0.4 MG Capsule PO (18:51)
--- NOTE | 2023-01-18 19:12 | DIALYSIS ---
Hemodialysis tx completed x 3 hours without complications. Pt tolerated tx well, fluid removed 2500ml using crit-line monitor. vitals stable throughout tx. Verbal report given to [employer] Painting. Next scheduled dialysis tx 01/20/23
[2023-01-18] MEDS: Doxycycline 100 MG CAPSULE PO (21:47)
[2023-01-18] MEDS: rifAXIMin 550 MG Tablet PO (21:47)
[2023-01-18] MEDS: 0.9% Saline Lock 10 ML Syringe IV (21:47)
[2023-01-18] MEDS: Pantoprazole Sodium 40 MG Tablet PO (21:47)
[2023-01-18] MEDS: levETIRAcetam 250 MG Tablet PO (21:47)
[2023-01-18] MEDS: ALPRAZolam 0.5 MG Tablet PO (21:47)
[2023-01-19 03:28] VITALS: BP 119/55; PULSE 71; RESP 18; TEMP 36.9; O2SAT 95
[2023-01-19] MEDS: Levothyroxine 75 MCG Tablet PO (05:37)
[2023-01-19 06:00] VITALS: BMI 27.1
[2023-01-19 06:14] LABS: Absolute Lymphocyte Count 1.13 X10^3/uL (0.83-4.51); Absolute Neutrophil Count 5.8 X10^3/uL (2.0-7.7); Basophil# 0.07 X10^3/uL; Basophil% 0.8 % (0-1); Eosinophil# 0.41 X10^3/uL; Eosinophils% 4.9 % (0-5); Hematocrit 32.9 % (40-54); Hemoglobin 11.2 g/dL (13.0-16.5); Lymphocyte # 1.13 X10^3/ul (0.83-4.51); Lymphocyte % 13.4 % (19-41); Mean Corpuscular Hgb 32.5 pg (27.0-32.0); Mean Corpuscular Volume 95.4 fL (80-94); Mean Platelet Vol. 8.3 fl (6.2-12.0); Monocyte# 0.97 X10^3/uL; Monocyte% 11.5 % (0-10); NRBC Flagged by Analyzer 0 % (0-5); Neutrophil # 5.82 X10^3/uL (2.7-7.7); Neutrophil % 68.9 % (47-70); Platelet Count 183 K/mm3 (150-450); RBC Distribution Width SD 58.4 fl (35.1-43.9); Red Blood Count 3.45 M/mm3 (4.6-6.2); White Blood Count 8.4 K/mm3 (4.4-11.0)
[2023-01-19 06:27] LABS: International Normalized Ratio 3.1; Prothrombin Time (Protime)PT. 31.9 SECONDS (11.7-14.9)
[2023-01-19 06:39] LABS: ALB/GLOB Ratio 0.6 RATIO (0.9-2.4); AST(SGOT) 73 U/L (15-37); Alanine Aminotransfer ALT/SGPT 68 U/L (16-61); Albumin, Serum 3.1 g/dL (3.2-5.0); Alkaline Phosphatase 517 U/L (45-117); Anion Gap 9 (5-15); BUN 41 mg/dL (7-18); BUN/Creat Ratio 6.9 RATIO (10-20); Calcium,Total 8.9 mg/dL (8.5-10.1); Chloride 98 mmol/L (98-107); Creatinine, Serum 5.96 mg/dL (0.70-1.30); EST Glomerular Filtration Rate 10 mL/min (>60); Est Glom Filt Rate - Afr Amer 12 mL/min (>60); Estimated Creatinine Clearance 10.32 ml/min; Globulin 4.9 g/dL (2.2-4.2); Glucose 94 mg/dL (74-106); Potassium 4.6 mmol/L (3.5-5.1); Sodium Level 133 mmol/L (136-145)
[2023-01-19 08:04] VITALS: O2SAT 97
[2023-01-19 08:14] VITALS: BP 107/49; PULSE 87; RESP 15; TEMP 36.4; O2SAT 94
[2023-01-19] MEDS: Midodrine HCl 5 MG Tablet 10 MG PO ×2 (08:21→12:22)
[2023-01-19] MEDS: cycloBENZAPRine HCl 10 MG Tablet PO (08:22)
[2023-01-19] MEDS: Folic Acid/Vitamin B Comp W-C 1 Capsule 1 CAP PO (08:22)
[2023-01-19] MEDS: Fluconazole 100 MG Tablet PO (08:22)
[2023-01-19] MEDS: rifAXIMin 550 MG Tablet PO (08:22)
[2023-01-19] MEDS: Doxycycline 100 MG CAPSULE PO (08:22)
[2023-01-19] MEDS: levETIRAcetam 250 MG Tablet PO (08:23)
[2023-01-19] MEDS: Pantoprazole Sodium 40 MG Tablet PO (08:23)
[2023-01-19] MEDS: Lactulose 20 GM/30 ML PHA UDC 30 GM PO (09:52)
[2023-01-19 14:32] VITALS: BP 127/53; PULSE 69; RESP 16; TEMP 36.9; O2SAT 99
--- NOTE | 2023-01-19 15:04 | CASEMGMT ---
GIO HEARN NOTE: Per Dr Centeno, plan is to discharge pt home today. Call placed to [facility] and spoke w/Linh who is the home dialysis nurse. She is aware plan is for pt to discharge home today. She states she is @ pt's home at this time to get everything set up to start home dialysis tomorrow @ 8 AM. GIO HEARN to room. Pt sitting up in chair in room. He is aware of the above plan. He denies having any further discharge planning needs or concerns. Ricky LIGHTN RN CM
--- NOTE | 2023-01-19 15:37 | DS.PCM_ITS ---
Providers Date of Admission: 01/17/23 Date of Discharge: 01/19/23 Primary Care Physician: Dr. David Menjivar, Consultations 01/17/23 22:25 Consult: Gastroenterology Routine Consulting Provider: Kody Zheng Reason for Consult: symptomatic anemia EMERGENT Consult: No Notified: Yes Date Notified: 01/18/23 Time Notified: 06:24 Method of Notification: Text Consult: Nephrology Routine Consulting Provider: Sharron Calderon Reason for Consult: ESRD on dialysis EMERGENT Consult: No Notified: Yes Date Notified: 01/18/23 Time Notified: 06:26 Method of Notification: Text Reason For Visit: SYMPTOMATIC ANEMIA Diagnosis Discharge Diagnosis (1) GI bleed: Status: Resolved Code(s): K92.2 - Gastrointestinal hemorrhage, unspecified Plan #Acute blood loss anemia/acute on chronic anemia requiring blood transfusion secondary to GI bleed #Mechanical aortic valve replacement/history of mitral valve repair #Atrial fibrillation status post AV chiquita ablation #End-stage renal disease on dialysis #Heart failure with preserved ejection fraction #Cirrhosis secondary to [place] #Hypothyroidism #Lymphoma Medications at Discharge Home Medications tamsulosin 0.4 mg capsule 0.4 mg PO DINNER prostate 05/19/21 levothyroxine 75 mcg tablet 75 mcg PO DAILY thyroid 08/24/21 rifaximin 550 mg tablet (Xifaxan) 550 mg PO BID diarrhea 01/10/22 vitamin B complex-vitamin C-folic acid 0.8 mg tablet (Nephro-Baltazar) 1 tab PO DAILY vitamin 01/10/22 alprazolam 1 mg tablet (Xanax) 0.5 mg PO QHS Sleep 02/01/22 levetiracetam 250 mg tablet 250 mg PO BID #60 tabs 10/16/22 pantoprazole 40 mg tablet,delayed release 40 mg PO QAM #90 tabs 10/16/22 cyclobenzaprine 10 mg tablet 10 mg PO BID PRN PRN Muscle Pain 11/27/22 doxycycline hyclate 100 mg tablet 100 mg PO BID infection 11/27/22 fluconazole 200 mg tablet (Diflucan) 200 mg PO DAILY infection 11/27/22 warfarin 1 mg tablet 1.5 mg PO QWEEK blood thinner 01/17/23 warfarin 3 mg tablet 3 mg PO DAILY blood thinner 01/17/23 Hospital Course Procedures - (EGD) Summary of Care Provided Minutes Spent on Discharge: 33 Hospital Course: CHRISTIAN RICHMOND, is a 72 M with a significant history of liver cirrhosis; end-s tage renal disease on dialysis; lymphoma; prior history of GI bleed; and mechanical aortic valve who presented to emergency department 01/17/23 with anemia.? On the same day of presentation ordered hemoglobin by his eligibility counselor returned as 7.4 and patient was notified by his GI office, Dr. Zheng's office, to come to the emergency department as patient may need to be admitted for a scope. He was found to have a hemoglobin of 6.8 in the ED and FOBT positive and given 2 units packed red blood cells. Placed on octreotide and PPI drips and was recommended to hold his Coumadin but this was not reversed. 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 He had EGD on 01/18/2023 which showed red blood in the gastric body with portal hypertensive gastropathy and a single bleeding angiodysplastic lesion in the stomach which was treated with a heater probe. He tolerated this well and tolerated advanced diet. Discussed with Dr. Zheng and he was taken off octreotide and PPI was transitioned to oral. He was cleared for resumption of anticoagulation the following day. On day of discharge she had no complaints. Nephrology did follow for dialysis during his admission as well. Discharge instructions as followed: -Would recommend lab work (CBC) to check your hemoglobin in 3 to 5 days through your primary care physician's office.? Please call their office upon discharge to obtain order for lab work. -You will need to follow-up with Dr. Zheng with GI in his office upon d ischarge.? Please call his office to schedule your hospital follow-up appointment (ph. [phone]) or call your outside provider to schedule a hospital follow-up appointment if preferred -Please resume your home Coumadin, your INR was 3.4 initially and on 01/19 it was 3.1 after a dose was held on admission due to bleeding.? 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 Grullon your beef cattle specialist -Please continue dialysis as scheduled -You had low blood pressure during a portion of your hospital stay and medications were added to keep your blood pressure up.? Your blood pressure is much improved and you will not be discharged on the medicine to increase your blood pressure however would recommend holding isosorbide mononitrate and monitoring blood pressure.? This will likely be able to be resumed but we discussed with prescribing physician prior to resumption -Please call your primary care provider's office upon discharge to schedule a hospital follow up within 1 week. -For any concerning signs or symptoms please call 911 or proceed to the nearest emergency department Physical Exam Narrative General: Alert, oriented, no apparent distress HEENT: Atraumatic, normocephalic Eyes: Anicteric, normal conjunctiva, extraocular movements grossly intact Neck: Supple Respiratory: Clear to auscultation bilaterally, normal respiratory effort Cardiovascular: Regular rate and rhythm GI: Soft, nontender, nondistended Extremities: No edema Musculoskeletal: Moving all extremities Neuro: No overt focal neurological deficits Skin: No rashes appreciated Psych: Cooperative Weight / BMI Weight Weight: 78.8 kg Body Mass Index (BMI) 27.1 ABG / Lab / Microbiology Data Result Diagrams: 01/19/23 06:05 01/19/23 06:05 Laboratory: Laboratory Results - last 24 hr 01/17/23 17:40: Crossmatch See Detail 01/19/23 06:05: PT 31.9 H, INR 3.1 01/19/23 06:05: WBC 8.4, RBC 3.45 L, Hgb 11.2 L, Hct 32.9 L, MCV 95.4 H D, MCH 32.5 H, MCHC 34.0 D, RDW Std Deviation 58.4 H, RDW Coeff of Jennifer 17.0 H, Plt Count 183, MPV 8.3, Immature Gran % (Auto) 0.500, Neut % (Auto) 68.9, Lymph % (Auto) 13.4 L, [place] % (Auto) 11.5 H, Eos % (Auto) 4.9, Baso % (Auto) 0.8, Absolute Neuts (auto) 5.8, Absolute Lymphs (auto) 1.13, Nucleated RBC % 0 01/19/23 06:05: Sodium 133 L, Potassium 4.6, Chloride 98, Carbon Dioxide 26.0, Anion Gap 9, BUN 41 H, Creatinine 5.96 H, Estim Creat Clear Calc 10.32, Est GFR (MDRD) Af Amer 12 L, Est GFR (MDRD) Non-Af 10 L, BUN/Creatinine Ratio 6.9 L, Glucose 94, Calcium 8.9, Total Bilirubin 1.20 H, AST 73 H, ALT 68 H, Alkaline Phosphatase 517 H, Total Protein 8.0, Albumin 3.1 L, Globulin 4.9 H, Albumin/ Globulin Ratio 0.6 L 01/19/23 06:05: Ammonia 38.0 H Microbiology: Microbiology 01/18/23 00:21 Stool Stool Occult Blood (SANDRA) - Final Occult Blood Positive D/C Instructions Discharge Diet: - (Renal diet) Meaningful Use Info Meaningful Use Diagnoses (Choose all that apply): None applicable Discharge Plan Admission Admit Date/Time: 01/17/23 21:26 Primary Reason for Your Visit: Anemia Attending Provider: Mimi Centeno Primary Care Provider: David Menjivar Consulting Providers: Kody Zheng ; Sharron Calderon ; Karthikeyan Rothman Instructions Patient Instructions: ED Upper GI Bleeding (Stable) Additional Instructions / Restrictions: DISCHARGE INSTRUCTIONS PLEASE READ *Please take this with you to your next doctors appointment* -Would recommend lab work (CBC) to check your hemoglobin in 3 to 5 days through your primary care physician's office. Please call their office upon discharge to obtain order for lab work. -You will need to follow-up with Dr. Zheng with GI in his office upon discharge . Please call his office to schedule your hospital follow-up appointment (ph. [phone]) or call your outside provider to schedule a hospital follow-up appointment if preferred -Please resume your home Coumadin, your INR was 3.4 initially and on 01/19 it was 3.1 after a dose was held on admission due to bleeding. 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 Grullon your beef cattle specialist -Please continue dialysis as scheduled -You had low blood pressure during a portion of your hospital stay and medications were added to keep your blood pressure up. Your blood pressure is much improved and you will not be discharged on the medicine to increase your blood pressure however would recommend holding isosorbide mononitrate and monitoring blood pressure. This will likely be able to be resumed but we discussed with prescribing physician prior to resumption -Please call your primary care provider's office upon discharge to schedule a hospital follow up within 1 week. -For any concerning signs or symptoms please call 911 or proceed to the nearest emergency department Discharge Orders/Prescriptions Prescriptions: Continued alprazolam [Xanax] 1 mg tablet 0.5 mg PO QHS levetiracetam 250 mg tablet 250 mg PO BID Qty: 60 6RF cyclobenzaprine 10 mg tablet 10 mg PO BID PRN PRN (Reason: Muscle Pain) doxycycline hyclate 100 mg tablet 100 mg PO BID fluconazole [Diflucan] 200 mg tablet 200 mg PO DAILY tamsulosin 0.4 mg capsule 0.4 mg PO DINNER levothyroxine 75 mcg tablet 75 mcg PO DAILY Nephro-Baltazar 0.8 mg tablet 1 tab PO DAILY Label Comments: TAKE 1 TABLET BY MOUTH EVERY DAY Xifaxan 550 mg Tablet 550 mg PO BID warfarin 3 mg Tablet 3 mg PO DAILY Protocol: Dose Management Condition: Sunday Dose/Route: 3 mg Instruction: 1 x 3 mg tablet Condition: Sunday Dose/Route: 3 mg Instruction: 1 x 3 mg tablet Condition: Sunday Dose/Route: 3 mg Instruction: 1 x 3 mg tablet Condition: Sunday Dose/Route: 1.5 mg Instruction: 0.5 x 3 mg tablets Condition: Dose/Route: 3 mg Instruction: 1 x 3 mg tablet Condition: Sunday Dose/Route: 3 mg Instruction: 1 x 3 mg tablet Condition: Sunday Dose/Route: 3 mg Instruction: 1 x 3 mg tablet Protocol Text: Adjustment Start Date: 01/18/23 INR Value: 3.4 INR Date: 01/18/23 Recheck Date: 01/25/23 Rx Instructions: Every day except wednesdays warfarin 1 mg Tablet 1.5 mg PO QWEEK Protocol: Dose Management Condition: Sunday Dose/Route: 3 mg Instruction: 1 x 3 mg tablet Condition: Sunday Dose/Route: 3 mg Instruction: 1 x 3 mg tablet Condition: Sunday Dose/Route: 3 mg Instruction: 1 x 3 mg tablet Condition: Sunday Dose/Route: 1.5 mg Instruction: 0.5 x 3 mg tablets Condition: Dose/Route: 3 mg Instruction: 1 x 3 mg tablet Condition: Sunday Dose/Route: 3 mg Instruction: 1 x 3 mg tablet Condition: Sunday Dose/Route: 3 mg Instruction: 1 x 3 mg tablet Protocol Text: Adjustment Start Date: 01/18/23 INR Value: 3.4 INR Date: 01/18/23 Recheck Date: 01/25/23 Rx Instructions: every sunday pantoprazole 40 mg tablet,delayed release (DR/EC) 40 mg PO QAM Qty: 90 3RF Discontinued isosorbide mononitrate 30 mg tablet extended release 24 hr 30 mg PO DAILY isosorbide mononitrate 30 mg tablet extended release 24 hr 30 mg PO DAILY Referrals / Follow Up: David Menjivar DO [Primary Care Provider] - 01/24/23 10:20 am Disposition Disposition (needs filled in before D/C Order can be placed): Home, Self Care Charges/Coding Visit Charges Inpatient E&M: 49140 Disch Hosp >30min
[2023-01-19 15:47] VITALS: BP 127/53; PULSE 69; RESP 16; TEMP 36.9; O2SAT 99
--- NOTE | 2023-01-19 15:51 | PHA.DC.MC ---
Pharmacy Service has performed discharge medication reconciliation and counseling for this patient. The patient was counseled on the following discharge medications and changes in medications for homegoing were reviewed. 1. ISOSORBIDE- MEDICATION DISCONTINUED The Reason for Use, instructions for use, and potential side effects were reviewed for all new medications. The patient's questions regarding all of their medications were answered. The patient was able to verbally demonstrate an understanding of their discharge medications. Home Medications tamsulosin 0.4 mg capsule 0.4 mg PO DINNER prostate 05/19/21 levothyroxine 75 mcg tablet 75 mcg PO DAILY thyroid 08/24/21 rifaximin 550 mg tablet (Xifaxan) 550 mg PO BID diarrhea 01/10/22 vitamin B complex-vitamin C-folic acid 0.8 mg tablet (Nephro-Baltazar) 1 tab PO DAILY vitamin 01/10/22 alprazolam 1 mg tablet (Xanax) 0.5 mg PO QHS Sleep 02/01/22 levetiracetam 250 mg tablet 250 mg PO BID #60 tabs 10/16/22 pantoprazole 40 mg tablet,delayed release 40 mg PO QAM #90 tabs 10/16/22 cyclobenzaprine 10 mg tablet 10 mg PO BID PRN PRN Muscle Pain 11/27/22 doxycycline hyclate 100 mg tablet 100 mg PO BID infection 11/27/22 fluconazole 200 mg tablet (Diflucan) 200 mg PO DAILY infection 11/27/22 warfarin 1 mg tablet 1.5 mg PO QWEEK blood thinner 01/17/23 warfarin 3 mg tablet 3 mg PO DAILY blood thinner 01/17/23 The patient's discharge medication list was reviewed for discrepancies and discrepancies were resolved.
== END 2023-01-19 17:00 | disposition home or self-care (01) | DRG 377 ==
LOC: ED 21:33 → PCU 21:45
PROVIDERS: Internal Medicine Gastroenterology; Admitting Provider Hospitalist; Emergency Provider Emergency Medicine; PCP Family Medicine; Visit Provider Internal Medicine
PROC: 0DJ08ZZ Inspection of Upper Intestinal Tract, Via Natural or Artificial Opening Endoscopic (ICD-10-PCS; CPT 43235; principal; 2023-01-18 12:10)
DX: K31.811 Angiodysplasia of stomach and duodenum with bleeding (principal); N18.6 End stage renal disease; K76.6 Portal hypertension; D68.32 Hemorrhagic disorder due to extrinsic circulating 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; D62 Acute posthemorrhagic anemia; I13.2 Hypertensive heart and chronic kidney disease with heart failure and with stage 5 chronic kidney disease, or end stage renal disease; I50.32 Chronic diastolic (congestive) heart failure; D63.1 Anemia in chronic kidney disease; I95.89 Other hypotension; K74.69 Other cirrhosis of liver; Z99.2 Dependence on renal dialysis; I48.91 Unspecified atrial fibrillation; K75.81 Nonalcoholic steatohepatitis (NASH); I25.10 Atherosclerotic heart disease of native coronary artery without angina pectoris; E78.00 Pure hypercholesterolemia, unspecified; K31.89 Other diseases of stomach and duodenum; G31.84 Mild cognitive impairment of uncertain or unknown etiology; I25.2 Old myocardial infarction; E03.9 Hypothyroidism, unspecified; E87.5 Hyperkalemia; T45.515A Adverse effect of 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, initial encounter; Z90.49 Acquired absence of other specified parts of digestive tract; Z95.0 Presence of cardiac pacemaker; Z95.2 Presence of prosthetic heart valve; Z79.01 Long term (current) use of 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; Z79.899 Other long term (current) drug therapy; Z86.74 Personal history of sudden cardiac arrest; Z86.16 Personal history of COVID-19; Z86.73 Personal history of transient ischemic attack (TIA), and cerebral infarction without residual deficits; Z85.72 Personal history of non-Hodgkin lymphomas
CPT/HCPCS: 36415; 80048; 80053; 80076; 82105; 82140; 82274; 85018; 85025; 85610; 86850; 86900; 86901; 86920; 90937; 93005; 99284; J7030; J7040; J7050; P9016; A4216; G0257; J2354; J2405; J3490; Q5106

== ENCOUNTER → 2023-01-24 | Outpatient (CLI) | payer MEDICARE, OTHER, SELFPAY ==
[2023-01-24 15:29] LABS: Absolute Lymphocyte Count 1.08 X10^3/uL (0.83-4.51); Basophil# 0.06 X10^3/uL; Basophil% 0.8 % (0-1); Eosinophil# 0.35 X10^3/uL; Eosinophils% 4.9 % (0-5); Hematocrit 35.6 % (40-54); Hemoglobin 11.2 g/dL (13.0-16.5); Lymphocyte # 1.08 X10^3/ul (0.83-4.51); Mean Corp Hgb Conc 31.5 g/dL (32-36); Mean Corpuscular Hgb 31.5 pg (27.0-32.0); Mean Platelet Vol. 10.2 fl (6.2-12.0); Monocyte# 0.72 X10^3/uL; NRBC Flagged by Analyzer 0 % (0-5); Neutrophil # 4.95 X10^3/uL (2.7-7.7); Neutrophil % 68.6 % (47-70); Platelet Count 127 K/mm3 (150-450); RBC Distribution Width CV 16.6 % (11.6-14.6); RBC Distribution Width SD 60.6 fl (35.1-43.9); Red Blood Count 3.56 M/mm3 (4.6-6.2); White Blood Count 7.2 K/mm3 (4.4-11.0)
[2023-01-24 15:35] LABS: International Normalized Ratio 2.5; Prothrombin Time (Protime)PT. 26.8 SECONDS (11.7-14.9)
== END | disposition home or self-care (01) ==
LOC: BFHLAB 11:15
PROVIDERS: PCP Family Medicine; Visit Provider Family Medicine
DX: D64.9 Anemia, unspecified (principal); Z79.01 Long term (current) use of 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
CPT/HCPCS: 36415; 85025; 85610

== ENCOUNTER 2023-02-02 09:14 | Outpatient (RCR) | payer MEDICARE, OTHER, SELFPAY ==
[2023-01-16 22:30] VITALS: BMI 28.8
[2023-01-17 10:54] LABS: Absolute Lymphocyte Count 1.42 X10^3/uL (0.83-4.51); Absolute Neutrophil Count 5.2 X10^3/uL (2.0-7.7); Basophil# 0.04 X10^3/uL; Basophil% 0.5 % (0-1); Eosinophil# 0.47 X10^3/uL; Eosinophils% 5.9 % (0-5); Hematocrit 23.8 % (40-54); Hemoglobin 7.5 g/dL (13.0-16.5); Lymphocyte # 1.42 X10^3/ul (0.83-4.51); Lymphocyte % 17.7 % (19-41); Mean Corp Hgb Conc 31.5 g/dL (32-36); Mean Corpuscular Hgb 32.1 pg (27.0-32.0); Mean Corpuscular Volume 101.7 fL (80-94); Mean Platelet Vol. 9.4 fl (6.2-12.0); Monocyte# 0.84 X10^3/uL; Monocyte% 10.5 % (0-10); NRBC Flagged by Analyzer 0 % (0-5); Neutrophil % 64.8 % (47-70); Platelet Count 239 K/mm3 (150-450); RBC Distribution Width CV 16.7 % (11.6-14.6); RBC Distribution Width SD 61.4 fl (35.1-43.9); Red Blood Count 2.34 M/mm3 (4.6-6.2)
[2023-01-17 11:10] LABS: International Normalized Ratio 3.4; Prothrombin Time (Protime)PT. 33.8 SECONDS (11.7-14.9)
[2023-01-17 11:35] LABS: AST(SGOT) 64 U/L (15-37); Alanine Aminotransfer ALT/SGPT 74 U/L (16-61); Albumin, Serum 3.2 g/dL (3.2-5.0); Alkaline Phosphatase 519 U/L (45-117); Anion Gap 11 (5-15); BUN 62 mg/dL (7-18); BUN/Creat Ratio 8.6 RATIO (10-20); Bilirubin, Direct 0.39 mg/dL (0.00-0.30); Calcium,Total 9.6 mg/dL (8.5-10.1); Chloride 96 mmol/L (98-107); Creatinine, Serum 7.21 mg/dL (0.70-1.30); EST Glomerular Filtration Rate 8 mL/min (>60); Est Glom Filt Rate - Afr Amer 10 mL/min (>60); Globulin 5.1 g/dL (2.2-4.2); Glucose 96 mg/dL (74-106); Potassium 4.1 mmol/L (3.5-5.1); Protein, Total 8.3 g/dL (6.4-8.2); Sodium Level 135 mmol/L (136-145)
[2023-01-18 18:55] LABS: AFP, Tumor Marker < 1.8 ng/mL (0.0-8.4)
[2023-02-02 09:43] LABS: International Normalized Ratio 2.2
== END 2023-02-16 23:13 | disposition home or self-care (01) ==
LOC: LAB 09:14
PROVIDERS: PCP Family Medicine; Referring Provider Internal Medicine Cardiovascular Disease; Visit Provider Internal Medicine Cardiovascular Disease
DX: Z79.01 Long term (current) use of 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 (principal); Z95.2 Presence of prosthetic heart valve
CPT/HCPCS: 36415; 80048; 80076; 82105; 85025; 85610

== ENCOUNTER → 2023-03-12 | Outpatient (CLI) | payer MEDICARE, OTHER, SELFPAY ==
--- NOTE | 2023-03-12 08:07 | RAD_ITS ---
STUDY: X-RAY CHEST REASON FOR EXAM: Male, 73 years old. Pleural effusion TECHNIQUE: PA and lateral views of the chest. COMPARISON: Comparison is made with prior study dated July 15, 2022. FINDINGS: A right-sided double-lumen catheter seen with the tip at the junction of the superior vena cava and right atrium. A right-sided dual-chamber pacemaker is seen. Persistent pleural parenchymal changes at the left lung base. The left pleural effusion has decreased in size as compared to prior study. The right lung base is unremarkable. There is no demonstrated pleural abnormality. Sternal cerclage wires and vascular clips are present from a prior sternotomy and coronary artery bypass graft procedure (CABG). Normal mediastinum and max. Normal visualized pulmonary arteries. Normal visualized aortic arch and descending thoracic aorta. There are diffuse degenerative changes of the visualized thoracic spine. Normal visualized ribs, clavicles, and shoulders. There is no demonstrated abnormality of the visualized soft tissue structures of the upper abdomen. RAD/Chest PA and Lateral IMPRESSION: Residual pleural-parenchymal change at the left lung base although there has been improvement in the left pleural effusion as compared to prior study. Electronically Signed: Donte Álvarez MD at 12:40 EDT ,
== END | disposition home or self-care (01) ==
LOC: RAD 08:05
PROVIDERS: PCP Family Medicine; Referring Provider Nurse Practitioner Acute Care; Visit Provider Nurse Practitioner Acute Care
DX: J90 Pleural effusion, not elsewhere classified (principal)
CPT/HCPCS: 71046

== ENCOUNTER 2023-03-29 08:30 | Day surgery (SDC) | payer MEDICARE, OTHER, SELFPAY ==
[2023-03-29 07:24] VITALS: BMI 24.3
[2023-03-29 08:45] LABS: Hematocrit 32.2 % (40-54); Hemoglobin 10.3 g/dL (13.0-16.5); Mean Corpuscular Hgb 32.3 pg (27.0-32.0); Mean Corpuscular Volume 100.9 fL (80-94); Mean Platelet Vol. 8.9 fl (6.2-12.0); Platelet Count 245 K/mm3 (150-450); RBC Distribution Width CV 15.6 % (11.6-14.6); RBC Distribution Width SD 57.5 fl (35.1-43.9); Red Blood Count 3.19 M/mm3 (4.6-6.2); White Blood Count 10.5 K/mm3 (4.4-11.0)
--- NOTE | 2023-03-29 08:50 | PCM.HP.BLA ---
History and Physical Date of Admission: 03/29/23 isit Reasons:?CVC EXCHANGE FOR DAMAGED ART LUMEN Chief Complaint: CVC exchange consult [facility] [employer] [facility] Required: No Is patient in pain?: No Allergies No Known Allergies Allergy (Verified 03/27/23 14:46) Medications tamsulosin 0.4 mg capsule 0.4 mg PO DINNER prostate 05/19/21 [History Confirmed 03/27/23] levothyroxine 75 mcg tablet 75 mcg PO DAILY thyroid 08/24/21 [History Confirmed 03/27/23] rifaximin 550 mg tablet (Xifaxan) 550 mg PO BID diarrhea 01/10/22 [History Confirmed 03/27/23] vitamin B complex-vitamin C-folic acid 0.8 mg tablet (Nephro-Baltazar) 1 tab PO DAILY vitamin 01/10/22 [History Confirmed 03/27/23] alprazolam 1 mg tablet (Xanax) 0.5 mg PO QHS Sleep 02/01/22 [History Confirmed 03/27/23] levetiracetam 250 mg tablet 250 mg PO BID #60 tabs 10/16/22 [Rx Confirmed 03/27/23] pantoprazole 40 mg tablet,delayed release 40 mg PO QAM #90 tabs 10/16/22 [Rx Confirmed 03/27/23] cyclobenzaprine 10 mg tablet 10 mg PO BID PRN PRN Muscle Pain 11/27/22 [History Confirmed 03/27/23] doxycycline hyclate 100 mg tablet 100 mg PO BID infection 11/27/22 [History Confirmed 03/27/23] fluconazole 200 mg tablet (Diflucan) 200 mg PO DAILY infection 11/27/22 [History Confirmed 03/27/23] warfarin 1 mg tablet 1.5 mg PO QWEEK blood thinner 01/17/23 [History Confirmed 03/27/23] warfarin 3 mg tablet 3 mg PO DAILY blood thinner 01/17/23 [History Confirmed 03/27/23] amoxicillin 500 mg capsule ea PO 03/27/23 [History Confirmed 03/27/23] PFSH Medical History? ABLA (acute blood loss anemia) Abnormal results of thyroid function studies Airway intubation performed without difficulty Anemia in chronic kidney disease Anemia requiring transfusions Atherosclerotic heart disease of [place] coronary artery without angina pectoris Atrial flutter Bacterial endocarditis Biventricular cardiac pacemaker in situ (~05/26/16) CAD (coronary artery disease) Cardiomyopathy in disease classified elsewhere Cardiopulmonary arrest with successful resuscitation Cirrhosis CKD stage G5/A1, GFR <15 and albumin creatinine ratio <30 mg/g Coagulopathy COVID-19 Diffuse large b-cell lymphoma, extranodal and solid organ sites Dyspnea Encounter for long-term (current) use of high-risk medication Endocarditis due to Staphylococcus Epilepsy ESRD (end stage renal disease) on dialysis Gout History of diffuse large B-cell lymphoma History of DVT (deep vein thrombosis) History of non-Hodgkin's lymphoma History of pacemaker History of rheumatic fever as a child HLD (hyperlipidemia) Hyperthyroidism Hypothyroidism (acquired) Infectious endocarditis Iron deficiency retirement (current) use of 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 Mild cognitive impairment MRSA (methicillin resistant Staphylococcus aureus) infection Non-rheumatic mitral regurgitation Non-rheumatic mitral valve stenosis Non-ST elevation (NSTEMI) myocardial infarction MIA (obstructive sleep apnea) Other specified cardiac dysrhythmias Paroxysmal ventricular tachycardia Polyneuropathy Pure hypercholesterolemia Rheumatic aortic stenosis Rheumatic mitral insufficiency Sepsis TIA (transient ischemic attack) (~11/19/15) Vitamin D insufficiency Surgical History? dual chamber pacemaker implantation (~10/2010) History of aortic valve replacement (~08/2003) History of appendectomy History of atrioventricular chiquita ablation History of cholecystectomy History of evacuation of hematoma History of heart valve replacement with mechanical valve History of heart valve replacement with mechanical valve History of mechanical aortic valve replacement (~1986) History of mechanical aortic valve replacement (~08/24/03) History of mitral valve repair (~08/24/03) Family History? Father?? CAD (coronary artery disease) ?? ? CABGBrother CAD (coronary artery disease) ?? ? CABGMother DiabetesSister Breast cancer DiabetesSister Cancer ?? ? breast Diabetes Social History? household members:? spouse housing:? house current occupational status:? retired current occupational exposures/hazards:? No history of recent travel:? No Smoking Status:? Never smoker alcohol intake:? never substance use type:? does not use caffeine:? No what type of physical activity do you participate in:? weight training and other details: Nustep frequency:? 3-4 times per week duration:? 45-60 minutes/day seatbelt use:? always do you feel safe at home:? Yes HPI HPI HPI: 73-year-old gentleman is referred because of a malfunctioning tunneled hemodialysis catheters.? It is of note that he was just seen by [facility] on March 26, 2023 regarding anemia.? He was treated for a GI bleed early in January.? It is of note that he is on home hemodialysis.? Does have a history of cirrhosis.? Patient had this inserted in interventional general radiology October 10, 2021.? There was high grade stenosis of the caudal aspect of the internal jugular vein with collateralization at the thorax inlet.? The catheter was a glidepath 27 cm tip to cuff.? The arterial line has been damagedScrew with the plastic although they are still using it.? They were told that at the time of his placement they had no other options.? Apparently he had gone down to interventional radiology 3 separate days 3 separate times and this was their last ditch effort 2 years ago to get access.? They remind me that I saw him remotely and attempt to place a fistula and saw no site due to central venous obstruction ROS General General: Yes fatigue; No weight change, appetite, colon cancer, breast cancer or weakness HEENT HEENT: No difficulty swallowing, eye injury, eye surgery, swollen glands or hoarseness Endo Endocrine: Yes thyroid disease; No diabetes mellitus, thyroid cancer, Hair loss, heat intolerance or cold intolerance Skin Skin: No rash or changing moles Breast Breast: No left breast lump, right breast lump, nipple discharge, breast pain, abnormal mammogram, abnormal US or breast enlargement Musc Musculoskeletal: Yes arthritis and gout; No back problems, rheumatoid arthritis or joint pain Cardio Cardiovascular: Yes murmur, pacemaker, heart disease, atrial fibrillation and high blood pressure; No heart attack, heart stent, palpitations, shortness of breat with exertion or chest pain Psych Psychiatric: No depression, anxiety or hearing voices Resp Respiratory: Yes shortness of breath, No sleep apnea, Yes cough, Yes COPD, No asthma, No emphysema and No wheezing Gastro Gastrointestinal: No abdominal pain, No nausea or vomiting, No diarrhea, No constipation, No blood in stool, No acid reflux, Yes hemorrhoids, No ulcers, No gallbladder problem and No black,tarry stools Reji Hematologic: Yes blood thinners, No blood disorders, No bleeding, Yes anemia and No blood clots Neuro Neurologic: No system reviewed and no additional complaints, except as documented, No as per HPI, No abnormal gait, No abnormal hearing, No abnormal movements, No abnormal speech, No behavioral changes, No burning sensations, No confusion, No convulsions, No disequilibrium, No dizziness, No localized weakness, No frequent falls, No headache(s), No lack of coordination, No loss of vision, No memory loss, Yes numbness, No other visual disturbances, No radicular pain, No restless legs, No sensory deficit, No syncope, Yes tingling, No tremor(s), No weakness and No other Exam Const General: cooperative, comfortable and no acute distress Nutritional Appearance: average body habitus Eyes Other: Bronzing of the skin noted Chest Other: Right neck chest has an indwelling glidepath tunneled hemodialysis catheter.? The skin is clean and dry.? Taping on the arterial line side.? No erythema no drainage. Resp Effort & Inspection: normal respiratory effort Cardio Rate: regular rate Rhythm: regular rhythm Neuro General: patient alert and patient awake Psych Appearance: grossly normal Assessment and Plan Assessment and Plan (1) Problem with dialysis access: ?Status:?Acute ?Plan: 73-year-old gentleman with a very difficult presentation.? He has pacemaker defibrillator wires.? He has central venous stenosis.? Even at a tertiary center with interventional radiology 2 years ago they found this last area to place a catheter and found to stenosis at that time as well. I have offered him 3 options.? We could try to see if we can get a glidepath catheter repair kit to replace the arterial side.? We will look into that for him. Secondary option would be to go to the [facility] and to attempt an qauo-gnc-tbid replacement of the current catheter.? There is risk in this and that he already had central venous stenosis at the time of the placement of this catheter 2 years ago Thirdly we could refer to a tertiary center and allow them down at [facility] to either repair the catheter or attempt replacement. He has had an opportunity to ask and have questions answered.? He and his will try to decide how they would like to approach this.? Tentatively I have him scheduled in our [facility] for potential intervention on March 29, 2023.? As noted we are attempting to see if we can get a repair kit for this style the catheter as this is not the catheter that we will utilize locally. Copy: [facility] Frod Wen M.D., F.A.C.S. The patient had been instructed to stop his warfarin. Unfortunately he took it anyway. INR is 2.4. Having to gauge the risk benefit ratio of catheter site infection with a fracture catheter versus bleeding we will attempt to proceed with catheter exchange today. Ford Wen M.D., F.A.C.S.
[2023-03-29 08:55] LABS: International Normalized Ratio 2.4; Prothrombin Time (Protime)PT. 26.4 SECONDS (11.7-14.9)
[2023-03-29 09:22] LABS: Anion Gap 11 (5-15); BUN 77 mg/dL (7-18); BUN/Creat Ratio 8.2 RATIO (10-20); Calcium,Total 9.7 mg/dL (8.5-10.1); Chloride 98 mmol/L (98-107); Creatinine, Serum 9.37 mg/dL (0.70-1.30); EST Glomerular Filtration Rate 6 mL/min (>60); Est Glom Filt Rate - Afr Amer 7 mL/min (>60); Estimated Creatinine Clearance 6.47 ml/min; Glucose 108 mg/dL (74-106); Potassium 4.6 mmol/L (3.5-5.1); Sodium Level 137 mmol/L (136-145)
--- NOTE | 2023-03-29 10:53 | PCM.OPRPT ---
Report of Operation Date of Procedure: 03/29/23 Pre-Operative Diagnosis: Fractured access line tunneled right internal jugular hemodialysis catheters with inability to obtain repair kit Post-Operative Diagnosis: Same Surgery/Procedure Performed:: Removal and exchange right internal jugular tunneled hemodialysis catheters with placement of 23 cm precurved palindrome catheters Lot [id number]. reference [id number] PE, Description of Surgical Findings:: Timeout and informed consent was obtained. The patient was taken to the special procedures lab and placed on the table. He received 2 g of Ancef intravenously. He received 50 mcg of fentanyl and 1 mg Versed is intravenous sedation. The right neck and chest were sterilely prepped with chlorhexidine. Draping was performed. Then the catheters were thoroughly doused with Betadine. They were allowed to dry. 1% lidocaine mixed 50-50 with 0.5% Marcaine was used as a local anesthetic. Throughout the procedure a total of 25 cc was used. Local was instilled at the neck counterincision was created sharp and blunt dissection was used to identify the previously curved catheter and it was secured with a hemostat. Local was instilled lateral to the previous catheter and overlying the previous catheter as well. Counterincision was made at the exit site of the old catheter the cuff was identified dissected free and then the catheter was amputated. The catheter was withdrawn at the neck and an 035 J-wire was inserted through the catheter under fluoroscopic control. A 6 Belgian sheath dilator was inserted. The dilator was removed. A universal flush catheter was placed over the wire and using the standard J-wire to gain access to the inferior vena cava. I exchanged out for an 035 Magic wire. Then I made a counterincision lateral to the previously placed catheter and I tunneled 23 cm precurved palindrome catheter. We gently dilated with the 14 Belgian dilator. Then placed the introducing sheath dilator over the Magic wire. Remove the Magic wire and the dilator. Advanced the catheter through the sheath and split the sheath. Then positioned the catheter so that the tip was close to the SVC atrial junction. Seem to have a very nice positional lie. It aspirated easily. It was flushed with 2 cc of 1 200 units of heparin per channel. The neck site was closed with interrupted 4-0 Vicryl subdermal stitch and Steri-Strips applied. The catheter was secured at the exit site with 3-0 nylon and sterile dressings applied. Fluoroscopy demonstrated good position. Did not see any pneumothorax. Pressure was held for hemostasis. He was taken to the recovery room in satisfactory addition. Head of bed of is elevated. Set portable suction x-rays pending. Specimens none. Drains none. Blood loss 100 cc. He tolerated the procedure well was taken to his recovery room in satisfactory condition. Ford Wen M.D., F.A.C.S. Surgeon: Ford Wen Type of Anesthesia: IV Sedation and Local
--- NOTE | 2023-03-29 11:05 | RAD_ITS ---
STUDY: X-RAY CHEST REASON FOR EXAM: Male, 73 years old. Line placement TECHNIQUE: Single AP portable view of the chest. COMPARISON: Comparison is made with prior examination dated March 12, 2023. FINDINGS: A right-sided temporary dialysis catheter seen with the tip at the junction of the superior vena cava and right atrium. Persistent pleural-parenchymal changes in the left lung base. The right lung is clear. Prominence of the right hilum. There is no demonstrated pleural abnormality. Sternal cerclage wires and vascular clips are present from a prior sternotomy and coronary artery bypass graft procedure (CABG). A right-sided dual-chamber pacemaker is seen. Normal mediastinum and max. Normal visualized pulmonary arteries. There is atherosclerotic calcification of the aortic arch with tortuosity. There are diffuse degenerative changes of the visualized thoracic spine. There is degenerative osteoarthritis of the bilateral shoulders. There is no demonstrated abnormality of the visualized soft tissue structures of the upper abdomen. RAD/Chest 1 View (Portable) IMPRESSION: A right-sided double-lumen catheter is seen with the tip at the junction of the superior vena cava and right atrium. Otherwise, there has been essentially no change. Electronically Signed: Donte Álvarez MD at 14:58 EDT ,
--- NOTE | 2023-03-29 11:12 | DCINST_ITS ---
Discharge Instructions Diet Discharge Diet: Renal Diet Activity Discharge Activity: May Not Drive and May Not Shower (Please do not shower over the catheters for at least 2 weeks. ) Lifting Restrictions: 10 pound weight lifting restriction for 1 week Dressing / Incision Call your doctor if your incision/area has: Continuous Slow Oozing, Sudden Increased Bleeding and Increased Redness Call your doctor if you observe: Fever of 101 or Higher Additional Dressing/Incision Instructions:: Leave the current dressing in place for 2 to 3 days if the patient is able to tolerate and there is no signs of blistering. You may then remove the current dressing but reapply a gauze and tape dressing both to the neck site and chest site changing them as needed to k eep the areas clean and dry for total of 2 weeks. The neck counterincision is closed with sutures underneath the skin that will dissolve and Steri-Strips. You may remove the Steri-Strips in 10 days. The catheters are and secured in place with nylon suture. This will either slowly extrude itself from the skin or require removal. There is a Dacron cuff that needs to heal thoroughly in the place. If the sutures are still intact then please make an appointment for my office between 2 to 3 months to have that suture removed. Follow Up Care Please Follow Up With: Ford Wen MD When: Approximately 2 to 3 months [phone] Test Results: Test results from this visit will be discussed in further detail at your follow- up appointment, if applicable. Discharge Plan Admission Attending Provider: Ford Wen Primary Care Provider: David Menjivar Discharge Orders/Prescriptions Prescriptions: No Action alprazolam [Xanax] 1 mg tablet 0.5 mg PO QHS levetiracetam 250 mg tablet 250 mg PO BID Qty: 60 6RF cyclobenzaprine 10 mg tablet 10 mg PO BID PRN PRN (Reason: Muscle Pain) doxycycline hyclate 100 mg tablet 100 mg PO BID fluconazole [Diflucan] 200 mg tablet 200 mg PO DAILY amoxicillin 500 mg capsule 500 mg PO DAILY Label Comments: take 2 capsules by mouth immediately then 1 capsule by mouth three times a day until finished tamsulosin 0.4 mg capsule 0.4 mg PO DINNER levothyroxine 75 mcg tablet 75 mcg PO DAILY Nephro-Baltazar 0.8 mg tablet 1 tab PO DAILY Label Comments: TAKE 1 TABLET BY MOUTH EVERY DAY Xifaxan 550 mg Tablet 550 mg PO BID warfarin 3 mg Tablet 3 mg PO DAILY Protocol: Dose Management Condition: Sunday Dose/Route: 4 mg Instruction: 1 x 1 mg tablet, 1 x 3 mg tablet Condition: Sunday Dose/Route: 4 mg Instruction: 1 x 1 mg tablet, 1 x 3 mg tablet Condition: Sunday Dose/Route: 4 mg Instruction: 1 x 1 mg tablet, 1 x 3 mg tablet Condition: Sunday Dose/Route: 4 mg Instruction: 1 x 1 mg tablet, 1 x 3 mg tablet Condition: Dose/Route: 4 mg Instruction: 1 x 1 mg tablet, 1 x 3 mg tablet Condition: Sunday Dose/Route: 4 mg Instruction: 1 x 1 mg tablet, 1 x 3 mg tablet Condition: Sunday Dose/Route: 4 mg Instruction: 1 x 1 mg tablet, 1 x 3 mg tablet Protocol Text: Adjustment Start Date: Sunday03/26/23 INR Value: 3.2 INR Date: 03/26/23 Recheck Date: 04/02/23 Rx Instructions: Every day except wednesdays warfarin 1 mg Tablet 1.5 mg PO QWEEK Protocol: Dose Management Condition: Sunday Dose/Route: 4 mg Instruction: 1 x 1 mg tablet, 1 x 3 mg tablet Condition: Sunday Dose/Route: 4 mg Instruction: 1 x 1 mg tablet, 1 x 3 mg tablet Condition: Sunday Dose/Route: 4 mg Instruction: 1 x 1 mg tablet, 1 x 3 mg tablet Condition: Sunday Dose/Route: 4 mg Instruction: 1 x 1 mg tablet, 1 x 3 mg tablet Condition: Dose/Route: 4 mg Instruction: 1 x 1 mg tablet, 1 x 3 mg tablet Condition: Sunday Dose/Route: 4 mg Instruction: 1 x 1 mg tablet, 1 x 3 mg tablet Condition: Sunday Dose/Route: 4 mg Instruction: 1 x 1 mg tablet, 1 x 3 mg tablet Protocol Text: Adjustment Start Date: Sunday03/26/23 INR Value: 3.2 INR Date: 03/26/23 Recheck Date: 04/02/23 Rx Instructions: every sunday pantoprazole 40 mg tablet,delayed release (DR/EC) 40 mg PO QAM Qty: 90 3RF Referrals / Follow Up: David Menjivar DO [Primary Care Provider] - Disposition Disposition (needs filled in before D/C Order can be placed): Home, Self Care
== END 2023-03-29 11:45 | disposition home or self-care (01) ==
PROVIDERS: PCP Family Medicine; Referring Provider Surgery; Visit Provider Surgery
DX: T82.49XA Other complication of vascular dialysis catheter, initial encounter (principal); T82.838A Hemorrhage due to vascular prosthetic devices, implants and grafts, initial encounter; Z99.2 Dependence on renal dialysis; N18.6 End stage renal disease; Z79.01 Long term (current) use of 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; I25.2 Old myocardial infarction; X58.XXXA Exposure to other specified factors, initial encounter; E03.9 Hypothyroidism, unspecified; I25.10 Atherosclerotic heart disease of native coronary artery without angina pectoris; E78.00 Pure hypercholesterolemia, unspecified; D63.1 Anemia in chronic kidney disease; Z95.0 Presence of cardiac pacemaker; Z95.2 Presence of prosthetic heart valve; Z79.899 Other long term (current) drug therapy; Z86.73 Personal history of transient ischemic attack (TIA), and cerebral infarction without residual deficits; Z86.74 Personal history of sudden cardiac arrest; Z86.16 Personal history of COVID-19
CPT/HCPCS: 36415; 36558; 71045; 76937; 77001; 80048; 85025; 85027; 85610; 99152; 99153; 99283; Q9967; A4216; C1769

== ENCOUNTER 2023-03-29 17:01 | Emergency (ER) | payer MEDICARE, OTHER, SELFPAY ==
[2023-03-29 17:03] VITALS: BP 104/45; PULSE 72; RESP 16; TEMP 36.6; O2SAT 100; BMI 27.3
[2023-03-29 17:12] VITALS: BP 113/45; PULSE 73; RESP 14; O2SAT 100
--- NOTE | 2023-03-29 17:17 | EDS_ITS ---
HPI History of Present Illness Chief Complaint: Wound [facility] Medical History ABLA (acute blood loss anemia) Abnormal results of thyroid function studies Airway intubation performed without difficulty Anemia in chronic kidney disease Anemia requiring transfusions Atherosclerotic heart disease of [place] coronary artery without angina pectoris Atrial flutter Bacterial endocarditis Biventricular cardiac pacemaker in situ (~05/26/16) CAD (coronary artery disease) Cardiomyopathy in disease classified elsewhere Cardiopulmonary arrest with successful resuscitation Cirrhosis CKD stage G5/A1, GFR <15 and albumin creatinine ratio <30 mg/g Coagulopathy COVID-19 Diffuse large b-cell lymphoma, extranodal and solid organ sites Dyspnea Encounter for long-term (current) use of high-risk medication Endocarditis due to Staphylococcus Epilepsy ESRD (end stage renal disease) on dialysis Gout History of diffuse large B-cell lymphoma History of DVT (deep vein thrombosis) History of non-Hodgkin's lymphoma History of pacemaker History of rheumatic fever as a child HLD (hyperlipidemia) Hyperthyroidism Hypothyroidism (acquired) Infectious endocarditis [facility] deficiency [facility] (current) use of 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 Mild cognitive impairment MRSA (methicillin resistant Staphylococcus aureus) infection Non-rheumatic mitral regurgitation Non-rheumatic mitral valve stenosis Non-ST elevation (NSTEMI) myocardial infarction MIA (obstructive sleep apnea) Other specified cardiac dysrhythmias Paroxysmal ventricular tachycardia Polyneuropathy Pure hypercholesterolemia Rheumatic aortic stenosis Rheumatic mitral insufficiency Sepsis TIA (transient ischemic attack) (~11/19/15) Vitamin D insufficiency Home Medications tamsulosin 0.4 mg capsule 0.4 mg PO DINNER prostate 05/19/21 [History Last Taken 01/09/22] levothyroxine 75 mcg tablet 75 mcg PO DAILY thyroid 08/24/21 [History Last Taken 01/10/22] rifaximin 550 mg tablet (Xifaxan) 550 mg PO BID diarrhea 01/10/22 [History Last Taken 01/09/22] vitamin B complex-vitamin C-folic acid 0.8 mg tablet (Nephro-Baltazar) 1 tab PO DAILY vitamin 01/10/22 [History Last Taken 01/09/22] alprazolam 1 mg tablet (Xanax) 0.5 mg PO QHS Sleep 02/01/22 [History Last Taken Unknown] levetiracetam 250 mg tablet 250 mg PO BID #60 tabs 10/16/22 [Rx Last Taken Unknown] pantoprazole 40 mg tablet,delayed release 40 mg PO QAM #90 tabs 10/16/22 [Rx Last Taken Unknown] cyclobenzaprine 10 mg tablet 10 mg PO BID PRN PRN Muscle Pain 11/27/22 [History Last Taken Unknown] doxycycline hyclate 100 mg tablet 100 mg PO BID infection 11/27/22 [History Last Taken Unknown] fluconazole 200 mg tablet (Diflucan) 200 mg PO DAILY infection 11/27/22 [History Last Taken Unknown] warfarin 1 mg tablet 1.5 mg PO QWEEK blood thinner 01/17/23 [History Last Taken 03/28/23] warfarin 3 mg tablet 3 mg PO DAILY blood thinner 01/17/23 [History Last Taken Unknown] amoxicillin 500 mg capsule 500 mg PO DAILY 03/27/23 [History Last Taken Unknown] Allergy/AdvReac Type Severity Reaction Status Date / Time No Known Allergies Allergy Verified 03/29/23 17:04 Family History Father CAD (coronary artery disease) CABG Brother CAD (coronary artery disease) CABG Mother Diabetes Sister Breast cancer Diabetes Sister Cancer breast Diabetes Surgical History dual chamber pacemaker implantation (~10/2010) History of aortic valve replacement (~08/2003) History of appendectomy History of atrioventricular chiquita ablation History of cholecystectomy History of evacuation of hematoma History of heart valve replacement with mechanical valve History of heart valve replacement with mechanical valve History of mechanical aortic valve replacement (~1986) History of mechanical aortic valve replacement (~08/24/03) History of mitral valve repair (~08/24/03) Social History household members: spouse housing: house current occupational status: retired current occupational exposures/hazards: No history of recent travel: No Smoking Status: Never smoker alcohol intake: never substance use type: does not use caffeine: No what type of physical activity do you participate in: weight training and other details: Nustep frequency: 3-4 times per week duration: 45-60 minutes/day seatbelt use: always do you feel safe at home: Yes EXAM Physical Exam Const Vital Signs: 03/29/23 17:03 03/29/23 17:12 03/29/23 19:53 Temperature 98 F Temperature Source Temporal Pulse Rate 72 73 71 Respiratory Rate 16 14 18 Blood Pressure 104/45 L 113/45 L 113/50 L Blood Pressure Mean 64 67 71 Pulse Ox 100 100 100 Oxygen Delivery Method Room Air Room Air Room Air [facility] Narrative Medical decision making narrative: HISTORY OF PRESENT ILLNESS: 73-year-old male here for bleeding from recently placed dialysis catheter. This was done by vascular surgery Dr. Wen. REVIEW OF SYSTEMS: Pertinent positives: Bleeding from right chest port Pertinent negatives: Lightheadedness, fatigue, chest pain PHYSICAL EXAM: Nursing triage notes reviewed, Vital signs reviewed Constitutional: [facility] HENT: MMM Eyes: Pupils equal round and reactive to light, Extraocular muscles intact Neck: No stridor, no JVD, full neck ROM Lungs: Clear to auscultation, No wheezing or rales. No increased work of breathing, no conversational dyspnea, no accessory muscle use, no nasal flaring. No respiratory distress noted Heart: Regular rate and rhythm, No murmurs, No rubs and No gallops, 2+ distal pulses (radial, femoral, posterior tibial) in all extremities Abdomen: Soft, there is no tenderness, rigidity, rebound or guarding, no obvious peritoneal signs, no palpable pulsatile abdominal masses, no auscultated abdominal bruit : No CVAT Extremities: No edema Neuro: No focal neurological deficits, cranial nerves II through XII intact, 5/5 strength in all extremities. Intact sensation to light touch in all extremities, 2+ reflexes bilateral patella tendons. Normal gait. No ataxia. Skin: No rash or lesions noted MEDICAL DECISION MAKING: Chief Complaint: Bleeding dialysis fistula. External records reviewed: Chest x-ray from today shows IMPRESSION: A right-sided double-lumen catheter is seen with the tip at the junction of the superior vena cava and right atrium. Otherwise, there has been essentially no change. ? [facility] Narrative: Patient had oozing from a suture site in the right chest. Pressure was applied. Labs including INR were obtained. INR was therapeutic. No need for reversal or emergent vitamin K treatment. He is not significantly anemic. I discussed the case with Dr. Wen. He would like to come in and evaluate the patient for himself. Dr. Wen recommended ED observation approxi-1 hour. After this observation. Patient had no evidence of bleeding. He is appropriate for discharge home. Factors affecting care: Liver cirrhosis, cardiomyopathy, ESRD, DVT, lymphoma, hypothyroidism, NSTEMI, on warfarin Social determinants of health: none History obtained from others: the patient's Shared decision making: I will have a discussion with the patient and or visitors regarding risk/benefits of further testing or admission. They will be made aware of of the risk/benefits inherent in this decision they will be given the opportunity to voice understanding. Consults: Vascular surgery Lab Data Labs: Laboratory Results - last 24 hr 03/29/23 03/29/23 03/29/23 17:30 17:30 17:30 WBC 9.9 RBC 3.09 L Hgb 9.8 L Hct 31.1 L MCV 100.6 H MCH 31.7 MCHC 31.5 L RDW Std Deviation 58.2 H RDW Coeff of Jennifer 15.8 H Plt Count 247 MPV 9.4 Immature Gran % (Auto) 0.500 Neut % (Auto) 66.0 Lymph % (Auto) 16.2 L [place] % (Auto) 11.1 H Eos % (Auto) 5.5 H Baso % (Auto) 0.7 Absolute Neuts (auto) 6.5 Absolute Lymphs (auto) 1.60 Nucleated RBC % 0 PT 28.3 H INR 2.6 Sodium 139 Potassium 4.3 Chloride 99 Carbon Dioxide 27.0 Anion Gap 13 BUN 79 H Creatinine 9.97 H* Estim Creat Clear Calc 6.08 Est GFR (MDRD) Af Amer 7 L Est GFR (MDRD) Non-Af 6 L BUN/Creatinine Ratio 7.9 L Glucose 106 Calcium 9.5 Discharge Plan Triage Chief Complaint: Wound ED Provider: Matt Palafox Dx/Rx/DC Orders Prescriptions: No Action alprazolam [Xanax] 1 mg tablet 0.5 mg PO QHS levetiracetam 250 mg tablet 250 mg PO BID Qty: 60 6RF cyclobenzaprine 10 mg tablet 10 mg PO BID PRN PRN (Reason: Muscle Pain) doxycycline hyclate 100 mg tablet 100 mg PO BID fluconazole [Diflucan] 200 mg tablet 200 mg PO DAILY amoxicillin 500 mg capsule 500 mg PO DAILY Label Comments: take 2 capsules by mouth immediately then 1 capsule by mouth three times a day until finished tamsulosin 0.4 mg capsule 0.4 mg PO DINNER levothyroxine 75 mcg tablet 75 mcg PO DAILY Nephro-Baltazar 0.8 mg tablet 1 tab PO DAILY Label Comments: TAKE 1 TABLET BY MOUTH EVERY DAY Xifaxan 550 mg Tablet 550 mg PO BID warfarin 3 mg Tablet 3 mg PO DAILY Protocol: Dose Management Condition: Sunday Dose/Route: 4 mg Instruction: 1 x 1 mg tablet, 1 x 3 mg tablet Condition: Sunday Dose/Route: 4 mg Instruction: 1 x 1 mg tablet, 1 x 3 mg tablet Condition: Sunday Dose/Route: 4 mg Instruction: 1 x 1 mg tablet, 1 x 3 mg tablet Condition: Sunday Dose/Route: 4 mg Instruction: 1 x 1 mg tablet, 1 x 3 mg tablet Condition: Dose/Route: 4 mg Instruction: 1 x 1 mg tablet, 1 x 3 mg tablet Condition: Sunday Dose/Route: 4 mg Instruction: 1 x 1 mg tablet, 1 x 3 mg tablet Condition: Sunday Dose/Route: 4 mg Instruction: 1 x 1 mg tablet, 1 x 3 mg tablet Protocol Text: Adjustment Start Date: Sunday03/26/23 INR Value: 3.2 INR Date: 03/26/23 Recheck Date: 04/02/23 Rx Instructions: Every day except wednesdays warfarin 1 mg Tablet 1.5 mg PO QWEEK Protocol: Dose Management Condition: Sunday Dose/Route: 4 mg Instruction: 1 x 1 mg tablet, 1 x 3 mg tablet Condition: Sunday Dose/Route: 4 mg Instruction: 1 x 1 mg tablet, 1 x 3 mg tablet Condition: Sunday Dose/Route: 4 mg Instruction: 1 x 1 mg tablet, 1 x 3 mg tablet Condition: Sunday Dose/Route: 4 mg Instruction: 1 x 1 mg tablet, 1 x 3 mg tablet Condition: Dose/Route: 4 mg Instruction: 1 x 1 mg tablet, 1 x 3 mg tablet Condition: Sunday Dose/Route: 4 mg Instruction: 1 x 1 mg tablet, 1 x 3 mg tablet Condition: Sunday Dose/Route: 4 mg Instruction: 1 x 1 mg tablet, 1 x 3 mg tablet Protocol Text: Adjustment Start Date: Sunday03/26/23 INR Value: 3.2 INR Date: 03/26/23 Recheck Date: 04/02/23 Rx Instructions: every sunday pantoprazole 40 mg tablet,delayed release (DR/EC) 40 mg PO QAM Qty: 90 3RF Primary Care Provider: David Menjivar Referrals: David Menjivar DO [Primary Care Provider] -
[2023-03-29 17:48] LABS: Absolute Neutrophil Count 6.5 X10^3/uL (2.0-7.7); Basophil# 0.07 X10^3/uL; Basophil% 0.7 % (0-1); Eosinophil# 0.54 X10^3/uL; Eosinophils% 5.5 % (0-5); Hematocrit 31.1 % (40-54); Hemoglobin 9.8 g/dL (13.0-16.5); Lymphocyte % 16.2 % (19-41); Mean Corp Hgb Conc 31.5 g/dL (32-36); Mean Corpuscular Hgb 31.7 pg (27.0-32.0); Mean Corpuscular Volume 100.6 fL (80-94); Mean Platelet Vol. 9.4 fl (6.2-12.0); Monocyte% 11.1 % (0-10); NRBC Flagged by Analyzer 0 % (0-5); Neutrophil # 6.54 X10^3/uL (2.7-7.7); Platelet Count 247 K/mm3 (150-450); RBC Distribution Width CV 15.8 % (11.6-14.6); RBC Distribution Width SD 58.2 fl (35.1-43.9); Red Blood Count 3.09 M/mm3 (4.6-6.2); White Blood Count 9.9 K/mm3 (4.4-11.0)
[2023-03-29 17:58] LABS: International Normalized Ratio 2.6; Prothrombin Time (Protime)PT. 28.3 SECONDS (11.7-14.9)
[2023-03-29 18:06] LABS: Anion Gap 13 (5-15); BUN 79 mg/dL (7-18); BUN/Creat Ratio 7.9 RATIO (10-20); Calcium,Total 9.5 mg/dL (8.5-10.1); Chloride 99 mmol/L (98-107); Creatinine, Serum 9.97 mg/dL (0.70-1.30); EST Glomerular Filtration Rate 6 mL/min (>60); Est Glom Filt Rate - Afr Amer 7 mL/min (>60); Estimated Creatinine Clearance 6.08 ml/min; Glucose 106 mg/dL (74-106); Potassium 4.3 mmol/L (3.5-5.1); Sodium Level 139 mmol/L (136-145)
--- NOTE | 2023-03-29 19:20 | PN.SURG_ITS ---
Subjective Subjective Patient presented to the emergency room with bleeding at the removal site from the right IJ tunneled dialysis catheter Objective Data Objective Data Vital Signs: Vital Signs Temp Pulse Resp BP Pulse Ox O2 Del Method 98 F 73 14 113/45 L 100 Room Air 03/29/23 17:03 03/29/23 17:12 03/29/23 17:12 03/29/23 17:12 03/29/23 17:12 03/29/23 17:12 Oxygen Delivery Method Room Air Weight: 174 lb 7 oz Body Mass Index (BMI) 27.3 Lab / Micro Data Result Diagrams: 03/29/23 17:30 03/29/23 17:30 Labs: Laboratory Results - last 24 hr 03/29/23 17:30: WBC 9.9, RBC 3.09 L, Hgb 9.8 L, Hct 31.1 L, MCV 100.6 H, MCH 31.7, MCHC 31.5 L, RDW Std Deviation 58.2 H, RDW Coeff of Jennifer 15.8 H, Plt Count 247, MPV 9.4, Immature Gran % (Auto) 0.500, Neut % (Auto) 66.0, Lymph % (Auto) 16.2 L, [place] % (Auto) 11.1 H, Eos % (Auto) 5.5 H, Baso % (Auto) 0.7, Absolute Neuts (auto) 6.5, Absolute Lymphs (auto) 1.60, Nucleated RBC % 0 03/29/23 17:30: PT 28.3 H, INR 2.6 03/29/23 17:30: Sodium 139, Potassium 4.3, Chloride 99, Carbon Dioxide 27.0, Anion Gap 13, BUN 79 H, Creatinine 9.97 H*, Estim Creat Clear Calc 6.08, Est GFR (MDRD) Af Amer 7 L, Est GFR (MDRD) Non-Af 6 L, BUN/Creatinine Ratio 7.9 L, Glucose 106, Calcium 9.5 Assessment & Plan Assessment/Plan (1) Problem with dialysis access: PLAN: Plan There was bruising and slight tunnel hematoma from the site of the removal of the previous right chest tunneled dialysis catheter. The new catheter site appeared relatively dry. I cleansed the area with Betadine I then personally held pressure for 1 hour. There was still some oozing at the site so I then used 1% lidocaine 4 cc and then put two 3-0 nylon sutures then. I placed fibula are and held pressure and there was still some oozing so then I used topical thrombin saturated another piece of fibular placed over the exit site placed with 4 x 4's ABD and a last press pressure dressing and had nursing hold another half hour. At that point it appeared the bleeding is stopped. After discussing with the and patient elected to go home. If there is further bleeding that he will need to return. He will not perform dialysis at home tomorrow. If there are any difficulties since instructed to contact the office or myself. I believe that the bleeding from the tunneled catheter site that was removed was secondary to the chronicity of that which that dialysis catheter was in place for 2 years as well as the patient's Coumadin anticoagulation. Total blood loss approximately 50 cc. Ford Wen M.D., F.A.C.S.
[2023-03-29 19:53] VITALS: BP 113/50; PULSE 71; RESP 18; O2SAT 100
--- NOTE | 2023-03-29 19:54 | ED.RN ---
direct pressure was held to site from [id number]. will observe for 1 hour per surgeon request.
[2023-03-29] MEDS: Thrombin 5,000 IU Kit (PSA) 5,000 IU Vial 5000 IU TOPICAL (20:06)
[2023-03-29 21:09] VITALS: BP 106/47; PULSE 70; RESP 20; O2SAT 100
[2023-03-29 21:59] VITALS: RESP 22
== END 2023-03-29 21:59 | disposition home or self-care (01) ==
PROVIDERS: Emergency Provider Emergency Medicine; PCP Family Medicine; Visit Provider Emergency Medicine
DX: T82.838A Hemorrhage due to vascular prosthetic devices, implants and grafts, initial encounter (principal); Z99.2 Dependence on renal dialysis; N18.6 End stage renal disease; I25.2 Old myocardial infarction; E03.9 Hypothyroidism, unspecified; I25.10 Atherosclerotic heart disease of native coronary artery without angina pectoris; E78.00 Pure hypercholesterolemia, unspecified; D63.1 Anemia in chronic kidney disease; Z95.2 Presence of prosthetic heart valve; Z79.01 Long term (current) use of 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; Z79.899 Other long term (current) drug therapy; Z86.73 Personal history of transient ischemic attack (TIA), and cerebral infarction without residual deficits; Z86.74 Personal history of sudden cardiac arrest; Z86.16 Personal history of COVID-19; X58.XXXA Exposure to other specified factors, initial encounter
CPT/HCPCS: 80048; 85025; 85610; A4216

== ENCOUNTER 2023-04-19 12:41 | Outpatient (RCR) | payer MEDICARE, OTHER, SELFPAY ==
[2023-02-16 23:14] VITALS: BMI 28.8
[2023-04-19 14:11] LABS: International Normalized Ratio 2.7; Prothrombin Time (Protime)PT. 29.4 SECONDS (11.7-14.9)
== END 2023-04-19 18:00 | disposition home or self-care (01) ==
LOC: LAB 12:41
PROVIDERS: PCP Family Medicine; Referring Provider Internal Medicine Cardiovascular Disease; Visit Provider Internal Medicine Cardiovascular Disease
DX: Z79.01 Long term (current) use of 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 (principal); Z95.2 Presence of prosthetic heart valve
CPT/HCPCS: 36415; 85610

== ENCOUNTER 2023-06-11 11:44 | Outpatient (RCR) | payer MEDICARE, OTHER, SELFPAY ==
[2023-05-18 22:35] VITALS: BMI 28.8
[2023-06-11 12:48] LABS: International Normalized Ratio 1.8; Prothrombin Time (Protime)PT. 20.9 SECONDS (11.7-14.9)
== END 2023-06-18 18:00 | disposition home or self-care (01) ==
LOC: LAB 11:44
PROVIDERS: PCP Family Medicine; Referring Provider Internal Medicine Cardiovascular Disease; Visit Provider Internal Medicine Cardiovascular Disease
DX: Z79.01 Long term (current) use of 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 (principal); Z95.2 Presence of prosthetic heart valve
CPT/HCPCS: 36415; 85610

== ENCOUNTER → 2023-07-11 | Outpatient (CLI) | payer MEDICARE, OTHER, SELFPAY ==
[2023-07-11 16:04] LABS: AST(SGOT) 99 U/L (15-37); Alanine Aminotransfer ALT/SGPT 106 U/L (16-61); Albumin, Serum 2.7 g/dL (3.2-5.0); Alkaline Phosphatase 572 U/L (45-117); Bilirubin, Direct 0.54 mg/dL (0.00-0.30); Globulin 5.2 g/dL (2.2-4.2); Protein, Total 7.9 g/dL (6.4-8.2)
== END | disposition home or self-care (01) ==
LOC: BFHLAB 13:35
PROVIDERS: PCP Family Medicine; Referring Provider Family Medicine; Visit Provider Family Medicine
DX: R18.8 Other ascites (principal); R41.0 Disorientation, unspecified
CPT/HCPCS: 36415; 80076; 82140

== ENCOUNTER → 2023-07-31 | Outpatient (CLI) | payer MEDICARE, OTHER, SELFPAY ==
--- NOTE | 2023-07-31 15:28 | CT_ITS ---
INDICATION: CIRRHOSIS OF LIVER EXAMINATION: CT ABDOMEN WITH AND WITHOUT CONTRAST TECHNIQUE: Helically acquired images were obtained of the abdomen both before and after IV contrast. A radiation dose optimization technique was used for this scan. IV Contrast dosage and agent: 100 cc of Isovue-300. Oral contrast: Given. RADIATION DOSAGE (If Supplied By Facility): CTDIvol = ( 23.56 ) mGy, DLP = ( 1846.11 ) mGycm COMPARISON: Prior exam of 01/10/2022. FINDINGS: LOWER CHEST: The visualized left lower lung infiltrate could be due to pneumonia. Persistent small left pleural effusion which could be loculated. Resolved right pleural effusion. LIVER: Homogeneous. No focal mass. GALLBLADDER AND BILIARY TREE: Status post cholecystectomy. No intra- or extrahepatic biliary ductal dilation. PANCREAS: Atrophic pancreas. SPLEEN: Normal size without focal cystic or solid mass. ADRENAL GLANDS: 1 cm left adrenal gland nodule could be due to adenoma. KIDNEYS AND URETERS: Atrophic kidneys. Bilateral simple renal cysts unchanged. No evidence of hydronephrosis PERITONEUM: No ascites or free air. No other fluid collection. BOWEL: No stomach or bowel distension. No focal inflammatory change. The appendix is not visualized. The rectum is not entirely excluded on this exam. LYMPH NODES: No enlarged mesenteric or retroperitoneal lymph nodes. VESSELS: Atherosclerotic calcifications of the abdominal aorta without evidence of aneurysm. ABDOMINAL WALL: No discrete abdominal wall hernia. BONES: No lytic or blastic abnormality. Degenerative changes of the spine. CT/Abdomen W/WO IV Contrast IMPRESSION: 1. Left lower lung infiltrate could be due to pneumonia. Persistent small left pleural effusion which could be loculated. 2. Otherwise no focal acute inflammatory process. 3. Small left adrenal nodule likely due to adenoma. Follow-up exam in one year with washout study or MRI with contrast. 4. Atrophic kidneys without evidence of hydronephrosis. Electronically Signed: Jorden Baldwin MD at 17:24 EDT ,
== END | disposition home or self-care (01) ==
LOC: CT 15:26
PROVIDERS: PCP Family Medicine
DX: K74.69 Other cirrhosis of liver (principal)
CPT/HCPCS: 74170; Q9967

== ENCOUNTER → 2023-10-03 | Outpatient (CLI) | payer MEDICARE, OTHER, SELFPAY ==
[2023-10-03 12:53] LABS: T4 Free Direct 1.01 ng/dL (0.76-1.46)
[2023-10-03 13:01] LABS: Vitamin B12 905 pg/mL (211-911)
== END | disposition home or self-care (01) ==
LOC: BFHLAB 08:55
PROVIDERS: PCP Family Medicine; Visit Provider Family Medicine
DX: E03.9 Hypothyroidism, unspecified (principal); D64.9 Anemia, unspecified
CPT/HCPCS: 36415; 82607; 84439; 84443

== ENCOUNTER → 2023-12-26 | Outpatient (CLI) | payer MEDICARE, OTHER, SELFPAY ==
--- NOTE | 2023-12-26 09:20 | US_ITS ---
STUDY: ABDOMINAL ULTRASOUND - RIGHT UPPER QUADRANT REASON FOR VISIT: Male, 73 years old CIRRHOSIS HCC SCREEN TECHNIQUE: Ultrasound evaluation of the right upper quadrant was performed with real-time and static hart-scale imaging. TECHNICAL QUALITY: Adequate. COMPARISON: Comparison is made with prior study dated June 07, 2023. FINDINGS: Liver: The liver measures 16.8 cm. There is a heterogeneous echogenicity of the liver. The bile ducts are within normal limits. There is hepatic color flow. The direction of portal flow is hepatopetal. There is no demonstrated mass lesion. Gallbladder: The patient is status post cholecystectomy. Common Bile Duct (C.B.D.): The common bile duct measures 7 mm. Pancreas: Normal size of the head, body and tail of the pancreas. There is increased echogenicity of the pancreas. There is no demonstrated pancreatic mass or cyst. Right Kidney: Normal size of the right kidney. The right kidney measures 10.3 cm x 4.1 cm x 4.8 cm. There is thinning of the renal cortex. The right cortex measures 0.7 cm. There is a 4.2 cm by 4 cm x 3.3 cm renal cysts. There is no right hydronephrosis. US/Abdomen Limited IMPRESSION: Heterogeneous echotexture of the liver. Status post cholecystectomy. Stable right renal cyst. Electronically Signed: Donte Álvarez MD at 11:05 EST ,
--- OUTSIDE RECORDS SUMMARY | 2023-12-26 10:54 | XMS RPT_ITS | CCD ---
Author Name Unknown Address [address] [place] [address] Organization [facility] Care Team Providers [facility] [employer] Vendor Name Role Phone GIO Cohen, Meron Goldberg Unavailable Unavailabl e GIO Cohen, Meron Goldberg Unavailable Unavailabl e PROVIDER, UNKNOWN Admitting Unavailable PROVIDER, UNKNOWN Attending Unavailable PROVIDER, UNKNOWN Admitting Unavailable PROVIDER, UNKNOWN Attending Unavailable Jeff Grullon MD Unavailable Nikita Atkinson MD Primary Care Provider [facility] GUERO/ASAD, Karthikeyan Unavailable Sharron Calderon DO Unavailable Isaac Min MD Unavailable Jeff Grullon MD Unavailable Jeff Grullon MD Unavailable Nikita Atkinson MD [facility] JACK/ASAD, Karthikeyan Unavailable Sharron Calderon DO Unavailable Isaac Min MD Unavailable Castro Menjivar DO Primary Care Provider Jeff Grullon MD Unavailable Johnny JACK/ASAD, Karthikeyan Unavailable Sharron Calderon DO Unavailable Isaac Min MD Unavailable Castro Menjivar DO Primary Care Provider NIKITA ATKINSON Primary Care Unavailable THOMAS MONTANA Admitting Unavailable RAVINDRA MCCOY II Attending Unavailable CONSULT, PULMONOLOGY Consulting Unavailable NIKITA ATKINSON Primary Care Unavailable NIKITA ATKINSON Primary Care Unavailable SEBASTIÁN CARTER Attending Unavailable MINGO IBARRA Referring Unavailable CASTRO MENJIVAR Primary Care Unavailable CASTRO MENJIVAR Primary Care Unavailable VAISHNAVI FRY Referring Unavailable VAISHNAVI FRY Attending Unavailable NIKITA ATKINSON Primary Care Unavailable KELBY PEOPLES Attending Unavailable NIKITA ATKINSON Referring Unavailable Allergies Allergy Classification Reported Allergen(s) Allergy Type Date of Onset Reaction(s) Facility (2 sources) NKDA drug allergy 04-24-2013 [facility] Work Phone: (2 sources) NKA drug allergy 04-24-2013 [facility] Work Phone: Medications Current Medications Medication Drug Class(es) Dates Sig (Normalized) Sig (Original) acetaminophen 500 mg oral tablet (9 sources) Start: 04-25-2022 acetaminophen 500 MG tablet Take 1 tablet by mouth. 0 04/25/2022 Active Completed/Discontinued Medications Medication Drug Class(es) Dates Sig (Normalized) Sig (Original) acyclovir 400 mg oral tablet (8 sources) Herpesvirus Nucleoside Analog DNA Polymerase Inhibitor, Herpes Simplex Virus Nucleoside Analog DNA Polymerase Inhibitor, Herpes Zoster Virus Nucleoside Analog DNA Polymerase Inhibitor Start: 11-16-2011 End: 02-26-2012 take 1 tablet by mouth twice daily ACYCLOVIR 400 MG TABS One tablet by mouth twice daily ACYCLOVIR [id number] Aleisha Alonso RN Problems Active Problems Problem Classification Problem Date Documented Da te Episodic/Chronic Cardiac arrest and ventricular fibrillation (6 sources) Cardiac arrest; 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: [Cardiac arrest, cause unspecified] Onset: 05-19-2021 05-19-2021 Chronic Cardiac dysrhythmias (20 sources) Atrial flutter; 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: [Atrial paroxysmal tachycardia] Onset: 05-01-2011 05-01-2011 Chronic 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 (2 sources) 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 stage 3; 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: [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, stage 3 (moderate)] Onset: 06-27-2016 06-27-2016 Chronic Chronic ulcer of skin (2 sources) Skin ulcer; 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: [Non-pressure chronic ulcer of skin of other sites with unspecified severity] Onset: 04-10-2016 07-05-2016 Chronic Conduction disorders (2 sources) Cardiac pacemaker in situ; 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: [Presence of cardiac pacemaker] Onset: 05-01-2011 05-01-2011 Chronic Congestive heart failure; nonhypertensive (6 sources) Chronic systolic heart failure; 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: [Chronic systolic (congestive) heart failure] Onset: 2013 03-08-2016 Chronic Coronary atherosclerosis and other heart disease (6 sources) Coronary arteriosclerosis; 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: [Atherosclerotic heart disease of [place] coronary artery without angina pectoris] 10-17-2021 Chronic Diseases of white blood cells (8 sources) Leukemoid reaction; 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: [Leukocytosis] Onset: 05-01-2011 05-01-2011 Chronic Disorders of lipid metabolism (4 sources) Hypertriglyceridemia ; 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: [Hyperlipidemia] Onset: 05-01-2011 03-03-2015 Chronic Essential hypertension (8 sources) Hypertensive disorder; 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: [Benign hypertension] Onset: 05-01-2011 05-01-2011 Chronic Heart valve disorders (16 sources) Heart valve replaced by other means; 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] Onset: 05-01-2011 05-01-2011 Chronic Hyperplasia of prostate (6 sources) Benign prostatic hyperplasia; 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: [Benign prostatic hyperplasia without lower urinary tract symptoms] 10-17-2021 Chronic Non-Hodgkin's lymphoma (8 sources) Non-Hodgkin's lymphoma (clinical); 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: [Non-Hodgkin lymphoma, unspecified, unspecified site] Onset: 12-26-2010 10-06-2011 Chronic Other circulatory disease (2 sources) 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, unspecified; 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: [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, unspecified] Onset: 05-01-2011 05-01-2011 Chronic Other liver diseases (10 sources) Cirrhosis of liver; 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: [Unspecified cirrhosis of liver] Onset: 08-25-2021 Chronic Other liver diseases (2 sources) Other specified diseases of liver; 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: [Other specified diseases of liver] Onset: 02-03-2023 Chronic Other liver diseases (2 sources) Unspecified cirrhosis of liver; 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: [Unspecified cirrhosis of liver] Onset: 09-10-2021 Chronic Other nervous system disorders (6 sources) Disorder of brain; 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: [Encephalopathy, unspecified] Onset: 08-26-2021 08-28-2021 Chronic Other nutritional; endocrine; and metabolic disorders (2 sources) Other disorders of bilirubin metabolism; 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: [Other disorders of bilirubin metabolism] Onset: 02-03-2023 Chronic Other upper respiratory infections (6 sources) Sphenoidal sinusitis; 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: [Chronic sphenoidal sinusitis] Onset: 08-25-2021 09-21-2021 Chronic Hilary-; endo-; and myocarditis; cardiomyopathy (8 sources) Cardiomyopathy in diseases classified elsewhere; 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: [Cardiomyopathy] Onset: 05-01-2011 05-01-2011 Chronic Residual codes; unclassified (6 sources) Obstructive sleep apnea syndrome; 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: [Obstructive sleep apnea (adult) (pediatric)] 10-17-2021 Chronic Residual codes; unclassified (6 sources) History of radiofrequency ablation operation for arrhythmia; 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: [Other specified postprocedural states] 08-07-2013 Episodic Transient cerebral ischemia (6 sources) Transient cerebral ischemia; 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: [Transient cerebral ischemic attack, unspecified] Onset: 05-20-2016 05-20-2016 Chronic Unclassified (2 sources) Body mass index (BMI) 30.0-30.9, adult; 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: [Body mass index (BMI) 30.0-30.9, adult] Onset: 09-13-2015 09-13-2015 Chronic Unclassified (2 sources) Warfarin therapy started; 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] Onset: 02-28-2017 02-28-2017 Unclassified (2 sources) Tuberculosis screening ; 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: [Encounter for screening for respiratory tuberculosis] Onset: 10-03-2011 10-06-2011 Unclassified (2 sources) Aftercare ; 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: [Encounter for other specified surgical aftercare] Onset: 04-10-2016 07-05-2016 Unclassified (2 sources) Drug therapy finding; 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] Onset: 01-26-2016 03-01-2016 Unclassified (2 sources) Long-term drug therapy; 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: [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] Onset: 05-01-2011 05-01-2011 Unclassified (1 source) Elevation of levels of liver transaminase levels; 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: [Elevation of levels of liver transaminase levels] Onset: 02-03-2023 Past or Other Problems Problem Classification Problem Date Documented Da te Episodic/Chronic Abdominal hernia (2 sources) Hernia of abdominal wall; 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: [Unspecified abdominal hernia without obstruction or gangrene] Onset: 01-26-2016 03-01-2016 Episodic Acute and unspecified renal failure (8 sources) Acute injury of kidney; 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: [Acute kidney failure, unspecified] Onset: 08-25-2021 10-17-2021 Episodic Acute posthemorrhagic anemia (6 sources) Acute posthemorrhagic anemia; 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: [Acute posthemorrhagic anemia] Onset: 03-15-2016 Resolved: 03-30-2016 03-30-2016 Episodic Bacterial infection (8 sources) Methicillin resistant Staphylococcus aureus infection; 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: [Bacteremia due to Methicillin resistant Staphylococcus aureus] Onset: 05-15-2016 Resolved: 06-27-2016 09-06-2016 Episodic Complication of device; implant or graft (6 sources) Infection associated with vascular device; 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: [Infection and inflammatory reaction due to other cardiac and vascular devices, implants and grafts, initial encounter] Onset: 05-15-2016 05-15-2016 Episodic Complications of surgical procedures or medical care (4 sources) Postoperative hemorrhage; 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: [Other complications of procedures, not elsewhere classified, initial encounter] Onset: 04-10-2016 07-05-2016 Episodic Deficiency and other anemia (6 sources) Anemia; 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: [Anemia, unspecified] Onset: 01-12-2011 08-28-2021 Episodic Fluid and electrolyte disorders (6 sources) Disorder of electrolytes; 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: [Other disorders of electrolyte and fluid balance, not elsewhere classified] Onset: 08-28-2021 08-28-2021 Episodic Gastrointestinal hemorrhage (6 sources) Blood-tinged feces; 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: [Melena] Onset: 03-19-2016 Resolved: 03-30-2016 03-30-2016 Episodic Genitourinary symptoms and ill-defined conditions (9 sources) Wayne hematuria; 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: [Gross hematuria] Onset: 03-09-2016 Resolved: 03-30-2016 03-30-2016 Episodic Malaise and fatigue (8 sources) Fatigue; 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: [Asthenia] Onset: 12-08-2013 12-08-2013 Episodic Mood disorders (6 sources) Mood disorders Onset: 07-07-2016 Resolved: 07-07-2016 07-07-2016 Mycoses (6 sources) Fungemia; 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: [Unspecified mycosis] Onset: 09-24-2021 10-17-2021 Episodic Nonspecific chest pain (2 sources) Chest pain, unspecified; 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: [Chest pain, unspecified] Onset: 05-01-2011 05-01-2011 Episodic Open wounds of head; neck; and trunk (6 sources) Open wound of abdomen; 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: [Unspecified open wound of abdominal wall, unspecified quadrant without penetration into peritoneal cavity, initial encounter] Onset: 03-22-2016 03-22-2016 Episodic Other aftercare (6 sources) Patient encounter status; 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: [Encounter for therapeutic drug level monitoring] Onset: 05-19-2016 Resolved: 06-26-2016 06-26-2016 Episodic Other diseases of kidney and ureters (6 sources) Kidney disease; 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: [Disorder of kidney and ureter, unspecified] Onset: 08-26-2021 08-27-2021 Episodic Other disorders of stomach and duodenum (6 sources) Cyclical vomiting syndrome; 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: [Cyclical vomiting syndrome unrelated to migraine] Onset: 03-29-2016 Resolved: 06-26-2016 06-26-2016 Episodic Other gastrointestinal disorders (2 sources) Anterior abdominal wall mass; 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: [Localized swelling, mass and lump, trunk] Onset: 01-26-2016 03-01-2016 Episodic Other lower respiratory disease (4 sources) Dyspnea; 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: [Shortness of breath] Onset: 09-29-2011 09-29-2011 Episodic Other nervous system disorders (6 sources) Metabolic encephalopathy; 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: [Metabolic encephalopathy] Onset: 05-20-2016 Resolved: 06-26-2016 06-26-2016 Chronic Other screening for suspected conditions (not mental disorders or infectious disease) (8 sources) Deviation of international normalized ratio from target range; 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: [Abnormal coagulation profile] Onset: 05-22-2021 05-22-2021 Episodic Hilary-; endo-; and myocarditis; cardiomyopathy (8 sources) Bacterial endocarditis; 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: [Acute infective endocarditis] Onset: 06-27-2016 06-27-2016 Episodic Pleurisy; pneumothorax; pulmonary collapse (5 sources) Pleural effusion; 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: [Pleural effusion, not elsewhere classified] Onset: 02-03-2023 02-03-2023 Episodic Pneumonia (4 sources) Bronchopneumonia, unspecified organism; 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: [Lobar pneumonia, unspecified organism] Onset: 10-03-2011 10-06-2011 Episodic Residual codes; unclassified (6 sources) Altered mental status; 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: [Altered mental status, unspecified] Onset: 08-25-2021 09-09-2021 Episodic Septicemia (except in labor) (12 sources) Septic shock; 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: [Sepsis, unspecified organism] Onset: 03-07-2016 Resolved: 06-26-2016 03-22-2016 Episodic Shock (6 sources) Shock; 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: [Shock, unspecified] Onset: 03-08-2016 Resolved: 03-22-2016 03-22-2016 Episodic Superficial injury; contusion (8 sources) Contusion of abdominal wall, initial encounter; 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: [Hematoma of groin] Onset: 03-03-2013 Resolved: 06-26-2016 03-01-2016 Episodic Syncope (6 sources) Syncope; 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: [Syncope and collapse] Onset: 02-26-2021 05-26-2021 Episodic Unclassified (12 sources) Family history of ischemic heart disease and other diseases of the circulatory system; 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: [Body mass index (BMI) 29.0-29.9, adult] Onset: 09-29-2011 07-28-2014 Episodic Unclassified (1 source) Elevation of levels of liver transaminase levels; 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: [Elevation of levels of liver transaminase levels] Onset: 02-03-2023 Urinary tract infections (6 sources) Urinary tract infectious disease; 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: [Urinary tract infection, site not specified] Onset: 03-25-2016 Resolved: 06-26-2016 06-26-2016 Episodic Viral infection (6 sources) COVID-19; 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: [Pneumonia due to other virus not elsewhere classified] Onset: 08-28-2021 08-28-2021 Episodic Results Test Name Value Interpretation Reference Range Facil ity Vital Signs Date Time Vital Sign Value Performing Clinician Consuelo rincon 07-13-2023 08:33-0400 Body height 170.2 cm Vaishnavi Fry DO Work Phone: [facility] 07-13-2023 08:33-0400 Body mass index (BMI) [Ratio] 27.41 kg/m2 Vaishnavi Fry DO Work Phone: [facility] 07-13-2023 08:33-0400 Body temperature 97.2 [degF] Vaishnavi Fry DO Work Phone: [facility] 07-13-2023 08:33-0400 Body weight 79.38 kg Vaishnavi Fry DO Work Phone: [facility] 07-13-2023 08:33-0400 Diastolic blood pressure 38 mm[Hg] Vaishnavi Fry DO Work Phone: [facility] 07-13-2023 08:33-0400 Systolic blood pressure 88 mm[Hg] Vaishnavi Fry DO Work Phone: [facility] 03-28-2023 09:52-0400 Diastolic blood pressure 53 mm[Hg] Sebastián Garcia MD Work Phone: [facility] 03-28-2023 09:52-0400 Heart rate 90 /min Sebastián Garcia MD Work Phone: [facility] 03-28-2023 09:52-0400 SaO2% (BldA) [Mass fraction] 97 % Sebastián Garcia MD Work Phone: [facility] 03-28-2023 09:52-0400 Systolic blood pressure 83 mm[Hg] Sebastián Garcia MD Work Phone: [facility] 01-15-2023 10:51-0500 Body height 170.2 cm Kelby Peoples APRN-SPOOLING MACHINE OPERATOR Work Phone: [facility] 01-15-2023 10:51-0500 Body mass index (BMI) [Ratio] 27.41 kg/m2 Kelby Peoples APRN-SPOOLING MACHINE OPERATOR Work Phone: [facility] 01-15-2023 10:51-0500 Body temperature 97.9 [degF] Kelby Peoples APRN-SPOOLING MACHINE OPERATOR Work Phone: [facility] 01-15-2023 10:51-0500 Body weight 79.38 kg Kelby Peoples PRODUCTION ASSISTANT-SPOOLING MACHINE OPERATOR Work Phone: [facility] 01-15-2023 10:51-0500 Diastolic blood pressure 54 mm[Hg] Kelby Peoples PRODUCTION ASSISTANT-SPOOLING MACHINE OPERATOR Work Phone: [facility] 01-15-2023 10:51-0500 Heart rate 69 /min Kelby Peoples PRODUCTION ASSISTANT-SPOOLING MACHINE OPERATOR Work Phone: [facility] 01-15-2023 10:51-0500 Respiratory rate 16 /min Kelby Peoples PRODUCTION ASSISTANT-SPOOLING MACHINE OPERATOR Work Phone: [facility] 01-15-2023 10:51-0500 SaO2% (BldA) [Mass fraction] 100 % Kelby Peoples PRODUCTION ASSISTANT-SPOOLING MACHINE OPERATOR Work Phone: [facility] 01-15-2023 10:51-0500 Systolic blood pressure 116 mm[Hg] Kelby Peoples PRODUCTION ASSISTANT-SPOOLING MACHINE OPERATOR Work Phone: [facility] 07-14-2022 11:12-0400 Body height 170.2 cm Vaishnavi Sobotka DO Work Phone: [facility] 07-14-2022 11:12-0400 Body mass index (BMI) [Ratio] 25.87 kg/m2 Vaishnavi Sobotka DO Work Phone: [facility] 07-14-2022 11:12-0400 Body temperature 98.1 [degF] Vaishnavi Sobotka DO Work Phone: [facility] 07-14-2022 11:12-0400 Body weight 74.93 kg Vaishnavi Sobotka DO Work Phone: [facility] 07-14-2022 11:12-0400 Diastolic blood pressure 59 mm[Hg] Vaishnavi Sobotka DO Work Phone: [facility] 07-14-2022 11:12-0400 Heart rate 71 /min Vaishnavi Garciaka DO Work Phone: [facility] 07-14-2022 11:12-0400 Respiratory rate 16 /min Vaishnavi Sobotka DO Work Phone: [facility] 07-14-2022 11:12-0400 SaO2% (BldA) [Mass fraction] 99 % Vaishnavi Sobotka DO Work Phone: [facility] 07-14-2022 11:12-0400 Systolic blood pressure 103 mm[Hg] Vaishnavi Blancootka DO Work Phone: [facility] 07-16-2017 16:22-0400 BMI (Body Mass Index) 28.35 kg/m2 [facility] Work Phone: 07-16-2017 16:22-0400 BP Diastolic 56 mm[Hg] [facility] Work Phone: 07-16-2017 16:22-0400 BP Systolic 128 mm[Hg] [facility] Work Phone: 07-16-2017 16:22-0400 Height 175.26 cm [facility] Work Phone: 07-16-2017 16:22-0400 Pulse (Heart Rate) 64 /min [facility] Work Phone: 07-16-2017 16:22-0400 Respiratory Rate 16 /min [facility] Work Phone: 07-16-2017 16:22-0400 Weight 87.09 kg [facility] Work Phone: 02-19-2017 11:46-0400 Body Temperature 97.3 [degF] [facility] Work Phone: 02-19-2017 11:46-0400 BSA (Body Surface Area) 2.04 m2 [facility] Work Phone: 06-05-2016 15:23-0400 Body Temperature 98.1 [degF] [facility] Work Phone: 04-10-2016 16:42-0400 Height 175.26 cm [facility] Work Phone: 02-26-2015 16:22-0400 Pulse Oximetry 98 % [facility] Work Phone: Encounters Encounter Date Encounter Type Care Provider Facility Start: 10-03-2023 Refill Leia Chatman [email or web address] Start: 07-13-2023 ambulatory [facility] Start: 07-13-2023 End: 07-13-2023 Office outpatient visit 25 minutes Vaishnavi Fry DO Work Phone: Gastroenterology and Hepatology [facility] Procedures Date Procedure Procedure Detail Performing Clinician Start: 03-28-2023 Cysto w/simple remov al stone & stent Sebastián Garcia MD Work Phone: Start: 02-07-2023 PSA screening NIKITA RODNEY Plan of Treatment Date Care Activity Detail Author Start: 07-24-2028 Tetanus vaccination TETANUS [facility] enter Start: 02-04-2028 Lipid panel LIPID SCREENING [facility] Start: 05-20-2026 Fasting lipid profile LIPID SCREENING [facility] Start: 05-20-2026 Lipid panel LIPID SCREENING [facility] Start: 02-08-2024 Prostate specific antigen measurement PROSTATE CANCER SCREENING DISCUSSION [facility] Start: 12-05-2023 End: 12-05-2023 Patient encounter procedure 12/05/2023 10:00 AM EST Office [facility] [address] [place] [id number] Kelby Peoples, PRODUCTION ASSISTANT-SPOOLING MACHINE OPERATOR [address] [place] [address] [facility] Start: 07-20-2023 COVID-19 VACCINE ( season) COVID-19 VACCINE () [facility] Start: 07-20-2023 End: 07-12-2024 CT Abdomen WO and W contrast IV CT ABDOMEN WITH AND WITHOUT CONTRAST Imaging Routine Other cirrhosis of liver Expected: 07/20/2023 (Approximate), Expires: 07/12/2024 [facility] Immunizations Immunization Date Immunization Notes Care Provider Fa jorge 08-22-2022 influenza virus vaccine, unspecified formulation Vaishnavi Fry DO Work Phone: [facility] 10-25-2021 influenza virus vaccine, unspecified formulation Vaishnavi Fry DO Work Phone: [facility] 10-24-2021 pneumococcal conjuga te vaccine, 13 valent Kelby Peoples PRODUCTION ASSISTANT-SPOOLING MACHINE OPERATOR Work Phone: [facility] 07-20-2012 influenza virus vaccine, unspecified formulation Kelby Peoples PRODUCTION ASSISTANT-SPOOLING MACHINE OPERATOR Work Phone: [facility] 08-16-2011 influenza virus vaccine, whole virus Kelby Peoples PRODUCTION ASSISTANT-SPOOLING MACHINE OPERATOR Work Phone: [facility] Work Phone: Payers Date Payer Category Payer Medicare [id number] 2015 Medicare MEDICARE MEDICAR E A AND B [id number] 2015-Present [address] [place] [address] [id number] 2011 Unknown [id number] 2011 Unknown AARP AARP xxxxxx [id number] 2011-Present [address] [place] [address] [id number] 1949 Unknown [id number] 1949 Unknown [id number] 1949 Unknown [id number] 1949 Unknown [id number] 1949 Unknown [id number] 1949 Unknown [id number] 1949 Unknown [id number] Social History Date Type Detail Facility Start: 08-07-2013 End: 01-15-2023 Tobacco smoking status NHIS Never smoked tobacco [facility] Start: 08-07-2013 End: 01-15-2023 Tobacco use and exposure Smokeless tobacco non-user [facility] Start: 12-19-2021 End: 07-13-2023 Alcohol intake Current non-drinker of alcohol (finding) [facility] Start: 1950 Sex Assigned At Not on file [facility] Start: 01-05-2023 End: 01-15-2023 Exposure to SARS-CoV-2 (event) Not sure [facility] Start: 07-13-2023 History of Social function [facility] Start: 07-13-2023 Tobacco use panel [facility] Medical Equipment Procedure Code Equipment Code Equipment Origin al Text Equipment Identifier Dates Lead Patrick Nichole [id number] - [id number] Start: 08-07-2013 Lead Pace Lv [id number] - [id number] Start: 05-26-2016 Cardiac pacemaker, device (physical object) ([id number]) 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 - Oral Last office visit: 07/13/23 Next office visit: 12/05/23 Date of Last Labs: 03/28/23 NICOLAS 07/13/23 PLAN: - Labs (BMP, LFTs, INR) should be performed every 3 months with an updated MELD score. Reviewed recent labs ordered by PCP. - Given his underlying cirrhosis, I recommend HCC screening every 6 months with an abdominal imaging study in conjunction with a serum AFP. Next imaging due CT triple phase to follow up liver lesion; however this appears stable from previous imaging so if again stable, can resume RUQ US for screening. Update AFP. - Variceal screening has been deferred for now given his medical conditions, need for AC and bridging therapy if stopped, etc. Can reconsider based on clinic course. He would not be an ideal candidate for band ligation given need for AC and has not tolerated beta blockers given hypotension. - Continue Rifaximin for management of hepatic encephalopathy. He has not tolerated Lactulose in the past. - For pain, I recommend acetaminophen, up to but not exceeding 2,000 mg daily, and would try to avoid using NSAIDs for pain control given their risk for mucosal ulceration, bleeding and nephrotoxicity. Would also recommend against using narcotics or benzodiazepines given their risk for precipitating or exacerbating hepatic encephalopathy. - I expressed my concern that his ongoing weakness/frailty is multifactorial given cirrhosis, cardiac disease and renal failure and likely to be progressive. At this time, family feels they have adequate support. - Vaccination status: Immunity against HBV and HAV. - For follow up, he will return to clinic in 4 months with Kelby Peoples. [facility] 10-03-2023 Miscellaneous Notes Provider: Dr Fry Name of Medication: rifAXIMin 550 MG tablet Verify dose and usage direction: Take 1 tablet by mouth 2 times daily. - Oral Last office visit: 07/13/23 Next office visit: 12/05/23 Date of Last Labs: 03/28/23 NICOLAS 07/13/23 PLAN: - Labs (BMP, LFTs, INR) should be performed every 3 months with an updated MELD score. Reviewed recent labs ordered by PCP. - Given his underlying cirrhosis, I recommend HCC screening every 6 months with an abdominal imaging study in conjunction with a serum AFP. Next imaging due CT triple phase to follow up liver lesion; however this appears stable from previous imaging so if again stable, can resume RUQ US for screening. Update AFP. - Variceal screening has been deferred for now given his medical conditions, need for AC and bridging therapy if stopped, etc. Can reconsider based on clinic course. He would not be an ideal candidate for band ligation given need for AC and has not tolerated beta blockers given hypotension. - Continue Rifaximin for management of hepatic encephalopathy. He has not tolerated Lactulose in the past. - For pain, I recommend acetaminophen, up to but not exceeding 2,000 mg daily, and would try to avoid using NSAIDs for pain control given their risk for mucosal ulceration, bleeding and nephrotoxicity. Would also recommend against using narcotics or benzodiazepines given their risk for precipitating or exacerbating hepatic encephalopathy. - I expressed my concern that his ongoing weakness/frailty is multifactorial given cirrhosis, cardiac disease and renal failure and likely to be progressive. At this time, family feels they have adequate support. - Vaccination status: Immunity against HBV and HAV. - For follow up, he will return to clinic in 4 months with Kelby Peoples. [facility] REFILL REQUEST Provider: Dr Fry Name of Medication: rifAXIMin 550 MG tablet Verify dose and usage direction: Take 1 tablet by mouth 2 times daily. - Oral Last office visit: 07/13/23 Next office visit: 12/05/23 Date of Last Labs: 03/28/23 Best time to reach patient: Anytime, Does patient prefer 30 day or 90 day supply ? 90 day supply PREFERRED PHARMACY IS ATTACHED TO ENCOUNTER [employer] documented in this encounter [facility] 10-03-2023 Telephone encounter Note GHN REFILL REQUEST Provider: Dr Fry Name of Medication: rifAXIMin 550 MG tablet Verify dose and usage direction: Take 1 tablet by mouth 2 times daily. - Oral Last office visit: 07/13/23 Next office visit: 12/05/23 Date of Last Labs: 03/28/23 Best time to reach patient: Anytime, Does patient prefer 30 day or 90 day supply ? 90 day supply PREFERRED PHARMACY IS ATTACHED TO ENCOUNTER [employer] [facility] 07-13-2023 History of Presen t illness Narrative -Referring Provider for today's consult: Vaishnavi Fry DO -Primary Care Provider: Castro Menjivar History of Present Illness Ravindra Amador is a 73 y.o. male who presents to the [facility] today for consultation regarding his diagnosis of Follow-up. I have reviewed his medical, surgical, family and social history and have updated medication and allergy information in the computerized patient record. I have also personally reviewed pertinent outside hospital documentation, laboratory results and imaging as outlined below. Mr. 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 His medical history is also notable for rheumatic heart disease s/p AV replacement, atrial flutter on Warfarin, CAD, MIA, HLD, ESRD on iHD, possible seizure disorder on Keppra (currently being weaned due to lower suspicion) and hypertension. Mr. Mcguire reports a remote history of abnormal liver function tests though workup was largely unremarkable (previous testing not available to review). In fall 2020, he was transferred to [facility] for respiratory failure due to COVID, retroperitoneal bleeding, pelvic fractures and fumgemia. During this prolonged admission, he underwent abdominal imaging which was concerned for cirrhosis. 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 His liver disease was complicated by HE. He was started on Lactulose with some improvement, though Rifaximin later added after discharge given ongoing concerns for HE. Since his last clinic appointment, he had another prolonged admission due to a loculated pleural effusion thought to be related to PNA which was treated with a chest tube and antibiotics. During this admission, he underwent abdominal imaging which revealed a possible bladder mass and a small subcm lesion in the liver. He is not feeling well today. He has had significant weakness and balance issues. His is with him consistently at home to help. Did slide off the bed last week but did not fall down the stairs. was unable to get him off the floor and had to call the emergency squad. also notes an episode of confusion this weekend. Currently on Rifaximin, not taking Lactulose. Taking Zofran for nausea. Past Medical History He has a past medical history of Anemia, Arthritis, Atrial flutter, Atrial tachycardia, BPH (benign prostatic hyperplasia), CAD (coronary artery disease), Cardiomyopathy, Congestive heart failure, unspecified, Essential hypertension, benign, Gout, Hematochezia, Hematoma (03/2012, 04/2012), HTN (hypertension), benign, Kidney stones, Leukocytosis, Lymphoma, MIA (obstructive sleep apnea), Pacemaker, S/P AVR (aortic valve replacement), S/P radiofrequency ablation operation for arrhythmia, and Septic shock. He has no past medical history of Diabetes mellitus or Difficult intubation. Past Surgical History Past Surgical History: Procedure Laterality Date EGD DIAGNOSTIC 06/2022 INSERTION CVC TUNNELED N/A 10/10/2021 Laterality: N/A; Surgeon: Remy Ferrer MD; Location: [facility] INTERVENTIONAL RADIOLOGY (VIR) INSERTION CVC TUNNELED N/A 10/03/2021 Laterality: N/A; Surgeon: William Duran II, MD; Location: [facility] INTERVENTIONAL RADIOLOGY (VIR) PLACEMENT PROBE FOR TRANSESOPHAGEAL ECHOCARDIOGRAPHY N/A 09/23/2021 Laterality: N/A; Surgeon: Sadia Nieto MD; Location: [facility] ROSS MAIN OR ESS NASAL DIAGNOSTIC Bilateral 09/20/2021 Laterality: Bilateral; Surgeon: You Wise MD; Location: [facility] CCCT MAIN OR ESS SPHENOID SINUSOTOMY WITH REMOVAL TISSUE Right 09/20/2021 Laterality: Right; Surgeon: You Wise MD; Location: [facility] MAIN OR ESS TOTAL ETHMOIDECTOMY Right 09/20/2021 Laterality: Right; Surgeon: You Wise MD; Location: [facility] MAIN OR REMOVAL CVC TUNNELED Right 07/07/2016 Laterality: Right; Surgeon: William Grider MD; Location: [facility] INTERVENTIONAL RADIOLOGY (VIR) CARDIAC VEIN ELECTRODE PLACEMENT FOR LV PACING N/A 05/26/2016 Laterality: N/A; Surgeon: Yi Cody MD; Location: [facility] ROSS EP PACEMAKER PLACEMENT N/A 05/26/2016 Laterality: N/A; Surgeon: Yi Cody MD; Location: [facility] ROS[facility] EP INSERTION CVC TUNNELED Right 05/19/2016 Laterality: Right; Surgeon: William Grider MD; Location: [facility] INTERVENTIONAL RADIOLOGY (VIR) INSERTION CVC TUNNELED Left 05/18/2016 Laterality: Left; Surgeon: William Grider MD; Location: [facility] INTERVENTIONAL RADIOLOGY (VIR) PACEMAKER ELECTRODE REMOVAL N/A 05/08/2016 Laterality: N/A; Surgeon: Luigi Mart MD; Location: [facility] ROSS EP COLONOSCOPY DIAGNOSTIC N/A 03/20/2016 Laterality: N/A; Surgeon: Jeremiah García MD; Location: [facility] ENDOSCOPY EP IMPLANT BIVENTRICULAR PACEMAKER TOTAL 08/07/2013 3 leads CARDIAC VEIN ELECTRODE PLACEMENT FOR LV PACING N/A 08/07/2013 Laterality: N/A; Surgeon: Favio Kline MD; Location: [facility] ROSS EP PACEMAKER ELECTRODE REMOVAL 08/07/2013 Surgeon: Favio Kline MD; Location: [facility] EP AV NODE ABLATION N/A 02/26/2013 Laterality: N/A; Surgeon: Favio Kline MD; Location: [facility] [place] EP CARDIAC PACEMAKER PLACEMENT 10/20/2010 Implant: [employer]onic [id number] [employer] CARDIAC PACEMAKER PLACEMENT 08/31/2003 Implant: Medtronic [id number] [place] [address] APPENDECTOMY CO ANESTH,OPEN HEART SURGERY+PUMP Home Medications Current Outpatient Medications Medication Sig ALPRAZolam 0.5 MG tablet Take 1 tablet by mouth At bedtime as needed for Anxiety. B Njmhqbk-Y-Yjykx Acid (NEPHRO-SHIRIN PO) Take by mouth. Cyclobenzaprine 10 MG tablet Take 1 tablet by mouth Every 8 hours as needed. doxycycline hyclate 100 MG capsule Take 1 capsule by mouth 2 times daily. levothyroxine 75 MCG tablet Take 1 tablet by mouth every morning before breakfast. Midodrine HCl 10 MG tablet Take 1 tablet by mouth. 1 Tablet Sunday, Sunday, Sunday 2 Tablets Sun And Sun pantoprazole [address] tablet DR Take 1 tablet by mouth daily. Tamsulosin HCl 0.4 MG capsule Take 1 capsule by mouth daily with dinner. Xifaxan 550 MG tablet TAKE ONE TABLET BY MOUTH TWICE A DAY fluconazole 200 MG tablet Take 1 tablet by mouth See admin instructions. Starting 10/21, take 2 tablets once per day through 10/30. Starting 10/31, take 1 tablet once per day levETIRAcetam 250 MG tablet Take 1 tablet by mouth 2 times daily. warfarin 4 MG tablet Take 2 tablets by mouth every evening at 6 PM. Allergies No Known Allergies Social History He is present today with his . Family History His family history includes Breast Cancer in his sister; Diabetes in his mother, paternal aunt, paternal uncle, and sister; Heart Defect in his paternal uncle; Heart Disease - Other in his brother, father, paternal aunt, and paternal uncle; Heart Surgery in his brother and father. Review of Systems GENERAL: Negative for any nausea, vomiting, fevers, chills, or weight loss. NEUROLOGIC: Negative for any blurry vision, blind spots, double vision, facial asymmetry, dysphagia, dysarthria, hemiparesis, hemisensory deficits, vertigo, ataxia. HEENT: Negative for any head trauma, neck trauma, neck stiffness, photophobia, phonophobia, sinusitis, rhinitis. CARDIAC: Negative for any chest pain, dyspnea on exertion, paroxysmal nocturnal dyspnea, peripheral edema. PULMONARY: Negative for any shortness of breath, wheezing, GASTROINTESTINAL: Negative for any abdominal pain, nausea, vomiting, bright red blood per rectum, melena. GENITOURINARY: Negative for any dysuria, hematuria, incontinence. INTEGUMENTARY: Negative for any rashes, cuts, insect bites. RHEUMATOLOGIC: Negative for any photosensitive rashes, history of vasculitis or kidney problems. +joint pain. HEMATOLOGIC: Negative for any abnormal bruising, frequent infections or bleeding. Physical Exam Blood pressure (!) 88/38, temperature 97.2 F (36.2 C), temperature source Temporal, height 1.702 m (5' 7 ), weight 79.4 kg (175 lb). Wt Readings from Last 3 Encounters: 07/13/23 79.4 kg (175 lb) 02/12/23 74.4 kg (164 lb 0.4 oz) 01/15/23 79.4 kg (175 lb) Constitutional: Chronically ill appearing male in a wheelchair. HEENT: Normocephalic, pupils equal and round, negative for any scleral icterus. Normal appearing oropharynx without any appreciable cervical lymphadenopathy. Cardiovascular: Mechanical heart sounds, without any appreciable rubs or gallops. Pulmonary: Normal breath sounds, without any appreciable crackles, wheezing or rhonchi. Abdominal: Soft, nontender, nondistended with normal bowel sounds without any appreciable ascites. Negative for any appreciable hepatosplenomegaly. Extremities: No LE edema. Negative for any asterixis. Mild tremor. Skin: Negative for any appreciable rashes. Negative for palmar erythema. Objective Data: Labs: I reviewed the following: OSH Labs -- 07/11/2023: LFT: TB 0.9, AST 99, ALT 106, ALP 572 INR 2.1 CBC: WBC 14.8, HG 10.6, PLT 277 Chem 6: Na 134, K 4.0, Cr 7.63 , Lab Results Component Value Date SODIUM 136 02/21/2023 POTASSIUM 5.0 02/21/2023 CHLORIDE 98 02/21/2023 CO2 24 02/21/2023 BUN 47 (H) 02/21/2023 CREATSERUM 7.20 (H) 02/21/2023 Lab Results Component Value Date WBC 7.92 02/21/2023 HGB 8.3 (L) 02/21/2023 HCT 25.6 (L) 02/21/2023 PLATELET 201 02/21/2023 MCV 98.1 (H) 02/21/2023 Lab Results Component Value Date ALT 39 02/21/2023 AST 34 02/21/2023 GGT 516 (H) 02/06/2023 ALKPHOS 376 (H) 02/21/2023 BILITOTAL 0.9 02/21/2023 BILIDIRECT 0.3 (H) 02/21/2023 MELD 3.0: 27 at 02/22/2023 12:01 PM MELD-Na: 30 at 02/22/2023 12:01 PM Calculated from: Serum Creatinine: On dialysis. Using the maximum value. Serum Sodium: 136 mmol/L at 02/21/2023 1:55 AM Total Bilirubin: 0.9 mg/dL (Using min of 1 mg/dL) at 02/21/2023 1:55 AM Serum Albumin: 3.4 g/dL at 02/21/2023 1:55 AM INR(ratio): 2.5 at 02/22/2023 12:01 PM Age at listing (hypothetical): 72 years Sex: Male at 02/22/2023 12:01 PM Serologic Workup: Hepatitis C AB: Negative Hepatitis B surface AB: Positive Hepatitis B surface AG: Negative Hepatitis B core total AB: Negative Hepatitis A Total IgG: Positive Ferritin: 224.3 Iron saturation: 20 DOUG: Negative AMA: Negative Anti Smooth Muscle AB: Negative Ig IgA: 158 IgM: 383 Ceruloplasmin: 37 A1AT level: 210 Imaging: CT A/P with IV contrast (02/03/2023): 1. Peripheral left lower lobe consolidation with complex pleural effusion. Empyema not excluded. 2. Indeterminate subcentimeter focus of relative hyperenhancement may localize to the posterior bladder wall or underlying prostate. Urothelial malignancy is within the differential diagnosis. Correlation with direct visualization is suggested. 3. Morphologic features of consistent with provided hx hepatic cirrhosis. Tiny hyperenhancing focus within hepatic segment 4A/8 appears unchanged from October 05, 2021. 4. Ancillary findings otherwise as above. RUQ US (03/17/2022); 1. Heterogeneous hepatic parenchymal echogenicity suggestive of hepatic parenchymal disease. No focal hepatic lesion. 2. A 2.8 cm right lower pole renal cyst. Echocardiogram (09/14/2021): Limited echo to evaluate valves. Left ventricle is normal in size. Low-normal LV systolic function. Ejection fraction is 50-55% by visual estimation. Device wire present in RA and RV. S/p mechanical AVR, well seated. Leaflets poorly visualized due to artifact. Mean gradient 11 mmHg. Mild-moderate paravalvular and valvular regurgitation. S/p mitral valve annuloplasty. Mitral leaflets are thickened with restricted motion. Mean gradient 6 mmHg. Mild regurgitation Mild tricuspid regurgitation Mild pulmonary regurgitation. Assuming normal RA pressure, RVSP estimated 53 mmHg There are no obvious prosthetic valve vegetations visualized. Compared to prior study 05/21/21, valvular hemodynamics are similar CT Angio (09/10/2021): 1. Increase in size of the left retroperitoneal hematoma compared to 09/08/2021. No active contrast extravasation identified. 2. Cirrhotic appearance of the liver. 3. Bilateral pleural effusions with associated atelectasis. 4. Unchanged left pubic pubic rami and acetabular fractures CT A/P without contrast (09/08/2021): 1. The left psoas hematoma and small retroperitoneal hematomas are stable however there is new extension into the left iliac fossa and down into the inguinal canal. 2. Small amount of free fluid in the pelvis. No loculated peritoneal fluid collections. 3. Morphology and slight nodularity of the liver suggesting cirrhosis. The spleen is not enlarged and no upper abdominal venous collaterals suggest portal venous hypertension. 4. Stable mild to moderate body wall edema. Stable bilateral pleural effusions, right greater than left. Assessment and Plan Ravindra Amador is a 73 y.o. 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 His medical history is also notable for rheumatic heart disease s/p AV replacement, atrial flutter on Warfarin, CAD, MIA, HLD, ESRD on iHD and hypertension. MELD 3.0 27. PLAN: - Labs (BMP, LFTs, INR) should be performed every 3 months with an updated MELD score. Reviewed recent labs ordered by PCP. - Given his underlying cirrhosis, I recommend HCC screening every 6 months with an abdominal imaging study in conjunction with a serum AFP. Next imaging due CT triple phase to follow up liver lesion; however this appears stable from previous imaging so if again stable, can resume RUQ US for screening. Update AFP. - Variceal screening has been deferred for now given his medical conditions, need for AC and bridging therapy if stopped, etc. Can reconsider based on clinic course. He would not be an ideal candidate for band ligation given need for AC and has not tolerated beta blockers given hypotension. - Continue Rifaximin for management of hepatic encephalopathy. He has not tolerated Lactulose in the past. - For pain, I recommend acetaminophen, up to but not exceeding 2,000 mg daily, and would try to avoid using NSAIDs for pain control given their risk for mucosal ulceration, bleeding and nephrotoxicity. Would also recommend against using narcotics or benzodiazepines given their risk for precipitating or exacerbating hepatic encephalopathy. - I expressed my concern that his ongoing weakness/frailty is multifactorial given cirrhosis, cardiac disease and renal failure and likely to be progressive. At this time, family feels they have adequate support. - Vaccination status: Immunity against HBV and HAV. - For follow up, he will return to clinic in 4 months with Kelby Peoples. Thank you for allowing us to participate in the care of Ravindra Amador. Vaishnavi Fry DO Head Stock Operator of Clinical Medicine Division of Gastroenterology, Hepatology and Nutrition [facility] Pager: [phone] This Mobile Qa Tester verified the patients name and date of . documented in this encounter [facility] 03-28-2023 History of Presen t illness Narrative Patient here today for cystoscopy. Patient escorted to procedure room where procedure was explained and patient agreed to continue. Sterile scope was set up with Normal Saline (Scope # [id number]). Medications and allergies were verified with the patient and are consistent with the EMR. Consent was obtained per Dr. Matthews. Kelfex given prior to procedure. Patient was placed in supine position prepped in sterile fashion with 2% Lidocaine jelly intra-urethra for anesthesia. Time Out Per Dr. Iyer. Patient tolerated the procedure well. Associated Order(s): CYSTOSCOPY Post-Procedure Diagnose(s): Urinary frequency CYSTOSCOPY Date/Time: 03/28/2023 10:00 AM Performed by: Sebastián Garcia MD Authorized by: Sebastián Garcia MD The attending physician was present for the entire procedure. Pre-Procedure: Indications: other Detailed information of all possible complications and side effects were discussed with the patient, these include but not only; UTI, sepsis, hematuria, incontinence, urethral injury and cardiovascular complications. Informed consent was obtained. The patient was given one dose of antibiotics. Procedure: Procedure performed: cystoscopy and calculi / foreign body removal The patient was placed supine with all pressure points well padded. with chlorhexidine. lidocaine 2% topical gel was inserted into urethra for local anesthesia. The flexible cystoscope was lubricated and placed into the urethral tract under direct visualization. A 360 survey of the bladder was performed. The cystoscope was reflected and the bladder neck and the ureteral orifices were inspected. The findings are detailed below. The cystoscope was removed following any additional procedures documented below. Findings: There was a prominent median lobe. The lateral lobes were obstructive in appearance. No tumors observed. No bladder fistula present. No foreign bodies observed. Stone(s) were found within the bladder (a bladder stone was removed using a basket. ). No trabeculations were found. Both ureteral orifices were normal in size, shape and position The urethra was inspected. No foreign body(s) present in urethra. No urethral diverticulum observed. No urethral stricture found. Stone was visualized and removed. Post Procedure: Patient tolerated procedure with no immediate complications Procedure Comments: A urine specimen was taken and sent for culture and cytology. He is noted to have elevated PSA. He tells me his PCP monitors this. I have advised him to consider a biopsy or prostate MRI. unfortunately he is not a candidate for MRI due to his ICD. He also is on blood thinners with target INR of 2.5-3.5 and as such a biopsy would require him going off his anticoagulation. His PCP has been periodically checking his PSA. I have advised him to continue this and consider a biopsy. He does understand not investigating an elevated PSA could lead to undiagnosed clinically significant prostate cancer. At this time he has other health concerns and would like to follow up on his PSA with his GP. I am happy to see him to discuss further in 3-6 months. At this time he is not interested in this. documented [facility] History of Presen t illness Narrative Images from the original note were not included. CLINICAL CARE TEAM: -Referring Provider for today's consult: Nikita Atkinson MD -Primary Care Provider: Nikita Atkinson HISTORY OF PRESENT ILLNESS: Ravindra Amador is a 72 y.o. male who presents to the [facility] today for follow-up. I have reviewed his medical, surgical, and social history and have updated medication and allergy information in the computerized patient record. 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 He was seen by our inpatient team 08/26-10/10/2021 for new concerns of cirrhosis. Patient initially transferred for acute hypoxic respiratory insufficiency secondary to COVID pneumonia, UTI, TIEN. Hospital course c/b left retroperitoneal bleed in setting of warfarin use and thrombocytopenia, pelvic fractures. He was noticed to have increasing hyperbilirubinemia. Per , he was found to have increased LFTs in the past, referred to Gastroenterology with negative workup, although unclear what was done. No history of significant alcohol use, no IV drug use or history of hepatitis. No family history of liver disease. Patient also with no other reported liver disease. CT A/P 09/02/21 with left retroperitoneal hemorrhage, no evidence of hemoperitoneum, bilateral pleural effusions, pelvic fractures, cirrhosis morphology of liver. Last echo with EF 54%. NICOLAS was with Dr. Fry 07/14/2022. Ravindra Amador is doing well. He was recently found to have elevated LFTs, workup unremarkable thus far. He is now requiring dialysis 3-4 days a week due to his CKD. He is tolerating dialysis well. His last iHD treatment was Sunday. Usually 1.8-2.6L off. Denies any swelling in BLE or abd distention. Appetite is good, continues to have issues with fatigue. Thinking is clear, moving his bowels 2-3 times a day. He does follow locally with GI, and completed EGD 07/17/2022 following a GI bleed. Otherwise, he denies any recent fevers, chills, night sweats, unexpected weight loss, chest pain, shortness of breath, abdominal pain, diarrhea, constipation, melena, hematochezia. PAST MEDICAL, SURGICAL, FAMILY, & SOCIAL HISTORY: Past Medical History: Diagnosis Date Anemia Arthritis Atrial flutter Atrial tachycardia BPH (benign prostatic hyperplasia) CAD (coronary artery disease) Cardiomyopathy Congestive heart failure, unspecified Essential hypertension, benign Gout Hematochezia Hematoma 03/2012, 04/2012 HTN (hypertension), benign Kidney stones Leukocytosis Lymphoma h/o chemo MIA (obstructive sleep apnea) Pacemaker S/P AVR (aortic valve replacement) mechanical S/P radiofrequency ablation operation for arrhythmia Septic shock Past Surgical History: Procedure Laterality Date EGD DIAGNOSTIC 06/2022 INSERTION CVC TUNNELED N/A 10/10/2021 Laterality: N/A; Surgeon: Remy Ferrer MD; Location: [facility] INTERVENTIONAL RADIOLOGY (VIR) INSERTION CVC TUNNELED N/A 10/03/2021 Laterality: N/A; Surgeon: William Duran II, MD; Location: [facility] INTERVENTIONAL RADIOLOGY (VIR) PLACEMENT PROBE FOR TRANSESOPHAGEAL ECHOCARDIOGRAPHY N/A 09/23/2021 Laterality: N/A; Surgeon: Sadia Nieto MD; Location: [facility] MAIN OR ESS NASAL DIAGNOSTIC Bilateral 09/20/2021 Laterality: Bilateral; Surgeon: You Wise MD; Location: [facility] MAIN OR ESS SPHENOID SINUSOTOMY WITH REMOVAL TISSUE Right 09/20/2021 Laterality: Right; Surgeon: You Wise MD; Location: [facility] MAIN OR ESS TOTAL ETHMOIDECTOMY Right 09/20/2021 Laterality: Right; Surgeon: You Wise MD; Location: [facility] MA[facility] OR REMOVAL CVC TUNNELED Right 07/07/2016 Laterality: Right; Surgeon: William Grider MD; Location: [facility] INTERVENTIONAL RADIOLOGY (VIR) CARDIAC VEIN ELECTRODE PLACEMENT FOR LV PACING N/A 05/26/2016 Laterality: N/A; Surgeon: Yi Cody MD; Location: [facility] ROSS EP PACEMAKER PLACEMENT N/A 05/26/2016 Laterality: N/A; Surgeon: Yi Cody MD; Location: [facility] EP INSERTION CVC TUNNELED Right 05/19/2016 Laterality: Right; Surgeon: William Grider MD; Location: [facility] INTERVENTIONAL RADIOLOGY (VIR) INSERTION CVC TUNNELED Left 05/18/2016 Laterality: Left; Surgeon: William Grider MD; Location: [facility] INTERVENTIONAL RADIOLOGY (VIR) PACEMAKER ELECTRODE REMOVAL N/A 05/08/2016 Laterality: N/A; Surgeon: Luigi Mart MD; Location: [facility] EP COLONOSCOPY DIAGNOSTIC N/A 03/20/2016 Laterality: N/A; Surgeon: Jeremiah García MD; Location: [facility] EP IMPLANT BIVENTRICULAR PACEMAKER TOTAL 08/07/2013 3 leads CARDIAC VEIN ELECTRODE PLACEMENT FOR LV PACING N/A 08/07/2013 Laterality: N/A; Surgeon: Favio Kline MD; Location: [facility] EP PACEMAKER ELECTRODE REMOVAL 08/07/2013 Surgeon: Favio Kline MD; Location: [facility] EP AV NODE ABLATION N/A 02/26/2013 Laterality: N/A; Surgeon: Favio Kline MD; Location: [facility] EP CARDIAC PACEMAKER PLACEMENT 10/20/2010 Implant: Medtronic [id number] Versa CARDIAC PACEMAKER PLACEMENT 08/31/2003 Implant: Medtronic [id number] [place] [address] APPENDECTOMY CO ANESTH,OPEN HEART SURGERY+PUMP Family History Problem Relation Age of Onset Heart Surgery Father CABG x5 Heart Disease - Other Father Diabetes Mother Heart Disease - Other Paternal Uncle Diabetes Paternal Uncle Heart Surgery Brother CABG x3 Heart Defect Paternal Uncle all Paternal uncles with heart problems Breast Cancer Sister Diabetes Sister Heart Disease - Other Brother Heart Disease - Other Paternal Aunt Diabetes Paternal Aunt Social History Socioeconomic History Marital status: Tobacco Use Smoking status: Never Smokeless tobacco: Never Substance and Sexual Activity Alcohol use: No Drug use: No Sexual activity: Yes Partners: Male Social History Narrative Merged History Encounter MEDICATIONS: Current Outpatient Medications Medication Sig acetaminophen 500 MG tablet Take 1 tablet by mouth. ALPRAZolam 1 MG tablet take 1 tablet by mouth at bedtime for sleep B Pxesvdk-K-Xjaew Acid (NEPHRO-SHIRIN PO) Take by mouth. Cyclobenzaprine 10 MG tablet Take 1 tablet by mouth Every 8 hours as needed. doxycycline hyclate 100 MG capsule Take 1 capsule by mouth 2 times daily. fluconazole 200 MG tablet Take 1 tablet by mouth See admin instructions. Starting 10/21, take 2 tablets once per day through 10/30. Starting 10/31, take 1 tablet once per day Heparin 1000 UNIT/ML Solution by Tube route. isosorbide mononitrate 30 MG Tab SR 24 HR tablet XL Take 1 tablet by mouth daily. levETIRAcetam 250 MG tablet levothyroxine 75 MCG tablet Take 1 tablet by mouth every morning before breakfast. Methoxy PEG-Epoetin Beta (MIRCERA IJ) Inject 200 mcg under the skin. ondansetron 4 MG tablet Take 1 tablet by mouth every 6 hours as needed for Nausea / Vomiting (1st line for Nausea/Vomiting). pantoprazole [address] tablet DR Take 1 tablet by mouth daily. Sucroferric Oxyhydroxide (Velphoro) 500 MG Chew Tab Chew 1 tablet Three times a day. Tamsulosin HCl 0.4 MG capsule Take 1 capsule by mouth daily with dinner. warfarin 1 MG tablet Take 6 tablets by mouth every evening at 6 PM. Xifaxan 550 MG tablet TAKE ONE TABLET BY MOUTH TWICE A DAY ALLERGIES: Patient has no known allergies. PHYSICAL EXAM: BP 116/54 (BP Location: Left arm, BP Position: Sitting) Pulse 69 Temp 97.9 F (36.6 C) Resp 16 Ht 1.702 m (5' 7 ) Wt 79.4 kg (175 lb) SpO2 100% BMI 27.41 kg/m Smoking Status Never Constitutional: Breathing easily, in no acute distress. Does appear cachectic. HEENT: PER, mild scleral icterus, normal appearing oropharynx, no appreciable cervical LAD Cardiovascular: Normal rate and regular rhythm. Right chest permacath. Pulmonary/Chest: Breath sounds normal. Abdominal: Soft. NT/ND. Hepatomegaly. Extrem: +1 LLE edema. No gross focal motor deficits in distal extrem. Neurological: AOx3. No asterixis Skin: Does appear mildly jaundiced. REVIEW OF SYSTEMS; otherwise full ROS was reviewed and was otherwise negative Review of Systems Constitutional: Negative. HENT: Negative. Cardiovascular: Negative. Musculoskeletal: Negative. Psychiatric: Negative. Lymph/Heme: Negative. LABORATORY EVALUATION: I have reviewed his pertinent laboratory data in the computerized patient record. Lab Results Component Value Date/Time PT 24.6 (H) 10/20/2021 05:52 AM PT 27.7 (H) 06/01/2016 04:13 AM INR 2.3 (H) 10/20/2021 05:52 AM INR 2.6 (H) 06/01/2016 04:13 AM PLATELET 80 (L) 10/19/2021 06:26 AM PLATELET 196 08/07/2016 09:38 AM PLATELET 281 06/05/2016 12:00 AM WBC 5.80 10/19/2021 06:26 AM WBC 7.3 08/07/2016 09:38 AM WBC 9.2 06/05/2016 12:00 AM HGB 8.1 (L) 10/19/2021 06:26 AM HGB 9.8 (L) 08/07/2016 09:38 AM HGB 9.3 06/05/2016 12:00 AM POTASSIUM 4.2 10/20/2021 05:52 AM POTASSIUM 5.34 (H) 09/15/2021 12:20 AM POTASSIUM 6.8 06/06/2016 12:00 AM POTASSIUM 4.59 08/25/2003 09:23 AM BUN 15 10/20/2021 05:52 AM BUN 59 (H) 08/07/2016 09:38 AM CREATSERUM 1.97 (H) 10/20/2021 05:52 AM CREATSERUM 2.06 (H) 08/07/2016 09:38 AM CREATSERUM 3.0 06/05/2016 12:00 AM CREATSERUM 0.77 11/25/2014 10:42 AM GFR 34 (L) 10/20/2021 05:52 AM GFR 32 (L) 08/07/2016 09:38 AM Lab Results Component Value Date ALT 14 10/24/2021 AST 32 10/24/2021 GGT 190 (H) 05/15/2016 ALKPHOS 264 (H) 10/24/2021 BILITOTAL 1.6 (H) 10/24/2021 BILIDIRECT 0.7 (H) 10/24/2021 OSH RUQ US 12/08/2021 Unremarkable per pt photo of report. Will obtain results. CT A/P 09/08/2021 IMPRESSION: 1. The left psoas hematoma and small retroperitoneal hematomas are stable however there is new extension into the left iliac fossa and down into the inguinal canal. 2. Small amount of free fluid in the pelvis. No loculated peritoneal fluid collections. 3. Morphology and slight nodularity of the liver suggesting cirrhosis. The spleen is not enlarged and no upper abdominal venous collaterals suggest portal venous hypertension. 4. Stable mild to moderate body wall edema. Stable bilateral pleural effusions, right greater than left. OSH EGD 07/17/2022 Computed MELD-Na score unavailable. Necessary lab results were not found in the last year. Computed MELD score unavailable. Necessary lab results were not found in the last year. ASSESSMENT AND PLAN: Ravindra Amador is a 72 y.o. 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 He was seen by our inpatient team 08/26-10/10/2021 for new concerns of cirrhosis. Patient initially transferred for acute hypoxic respiratory insufficiency secondary to COVID pneumonia, UTI, TIEN. Hospital course c/b left retroperitoneal bleed in setting of warfarin use and thrombocytopenia, pelvic fractures. He was noticed to have increasing hyperbilirubinemia. No recent episodes of hematemesis, melena, abdominal distention. Per , he was found to have increased LFTs in the past, referred to Gastroenterology with negative workup, although unclear what was done. No history of significant alcohol use, no IV drug use or history of hepatitis. No family history of liver disease. Patient also with no other reported liver disease. CTAP 09/02/21 with left retroperitoneal hemorrhage, no evidence of hemoperitoneum, bilateral pleural effusions, pelvic fractures, cirrhosis morphology of liver. Last echo with EF 54%. On iHD 3-4 times weekly. Plan WILEY Cirrhosis: MELD-Na 33 from previous labs. Will recheck MELD-Na labs Sunday with iHD. Ascites: Not present on exam. I would recommend adherence to a strict 2 gram, low sodium diet. EV: EGD reviewed. Continue with local surveillance. . HE: A&Ox3. Continue Xifaxan. HCC: I would recommend ongoing surveillance for HCC with abdominal imaging in conjunction with serum AFP every 6 months. AFP ordered. US reviewed. 2. Frailty/deconditioning/severe protein calorie malnutrition. Recommend Boost/Ensure/Glucerna shakes 1-2 per meal and most importantly 1 before bedtime. Protein: 1.2-1.5 g/kg/day, calories: 30-35 kcal/kg/day. 3. Discussed elevated LFTs, workup unremarkable. Pt denies any new medications or herbal supplements. Ordered US doppler. To note: Pt pacemaker is not MRI compatible. I discussed my impression and plan with the patient. The patient had the opportunity to ask all questions regarding their condition and answered those questions to the best of my ability Discussion with patient and /or family with regards to: Diagnostic results and or recommended studies Risks and benefits of management or treatment options Important of compliance with chosen treatment Risk factor reduction Patient and family education In addition, I would recommend vaccination against hepatitis A and B. I recommend lifelong abstinence from alcohol and tobacco. I would recommend adherence to a strict 2 gram, low sodium diet. I would strictly avoid using NSAIDs for pain control given their risk for mucosal ulceration, bleeding and nephrotoxicity. For pain, I recommend acetaminophen, up to but not exceeding 2,000 mg daily. I would recommend against using narcotics or benzodiazepines given their risk for precipitating or exacerbating hepatic encephalopathy. I would recommend ongoing surveillance for HCC with abdominal imaging in conjunction with serum AFP every 6 months. I would strictly avoid raw shellfish given the risk of Vibrio Vulnificus in cirrhotics. FOLLOW-UP -For follow up, he will return to Dr. Fry's clinic in 4 months. Thank you for allowing me to participate in the care of Ravindra Amador. PATRICIA Purdy Hepatology Nurse Practitioner Division of Gastroenterology, Hepatology, and Nutrition documented in this encounter [facility] 07-14-2022 History of Presen t illness Narrative -Referring Provider for today's consult: Nikita Atkinson MD -Primary Care Provider: Nikita Atkinson History of Present Illness Ravindra Amador is a 72 y.o. male who presents to the [facility] today for consultation regarding his diagnosis of Follow-up. I have reviewed his medical, surgical, family and social history and have updated medication and allergy information in the computerized patient record. I have also personally reviewed pertinent outside hospital documentation, laboratory results and imaging as outlined below. Mr. Mcguire has a history of decompensated cirrhosis complicated by HE that presented to clinic for follow up. His medical history is also notable for rheumatic heart disease s/p AV replacement, atrial flutter on Warfarin, CAD, MIA, HLD, ESRD on iHD and hypertension. Mr. Mcguire reports a remote history of abnormal liver function tests though workup was largely unremarkable (previous testing not available to review). In fall 2020, he was transferred to [facility] for respiratory failure due to COVID, retroperitoneal bleeding, pelvic fractures and fumgemia. During this prolonged admission, he underwent abdominal imaging which was concerned for cirrhosis. Etiology was thought to be related to WILEY. His liver disease was complicated by HE. He was started on Lactulose with some improvement, though Rifaximin later added after discharge given ongoing concerns for HE. Since his last clinic appointment, he has been having issues with joint pain for which he is taking APAP. He reports improvement in HE. He has been taking Rifaximin. Stopped Lactulose. He denies signs of hepatic decompensation including ascites, jaundice, scleral icterus, or GIB. Past Medical History He has a past medical history of Anemia, Arthritis, Atrial flutter, Atrial tachycardia, BPH (benign prostatic hyperplasia), CAD (coronary artery disease), Cardiomyopathy, Congestive heart failure, unspecified, Essential hypertension, benign, Gout, Hematochezia, Hematoma (03/2012, 04/2012), HTN (hypertension), benign, Kidney stones, Leukocytosis, Lymphoma, MIA (obstructive sleep apnea), Pacemaker, S/P AVR (aortic valve replacement), S/P radiofrequency ablation operation for arrhythmia, and Septic shock. He has no past medical history of Diabetes mellitus or Difficult intubation. Past Surgical History Past Surgical History: Procedure Laterality Date INSERTION CVC TUNNELED N/A 10/10/2021 Laterality: N/A; Surgeon: Remy Ferrer MD; Location: [facility] INTERVENTIONAL RADIOLOGY (VIR) INSERTION CVC TUNNELED N/A 10/03/2021 Laterality: N/A; Surgeon: William Duran II, MD; Location: [facility] INTERVENTIONAL RADIOLOGY (VIR) PLACEMENT PROBE FOR TRANSESOPHAGEAL ECHOCARDIOGRAPHY N/A 09/23/2021 Laterality: N/A; Surgeon: Sadia Nieto MD; Location: [facility] MAIN OR ESS NASAL DIAGNOSTIC Bilateral 09/20/2021 Laterality: Bilateral; Surgeon: You Wise MD; Location: [facility] MAIN OR ESS SPHENOID SINUSOTOMY WITH REMOVAL TISSUE Right 09/20/2021 Laterality: Right; Surgeon: You Wise MD; Location: [facility] MAIN OR ESS TOTAL ETHMOIDECTOMY Right 09/20/2021 Laterality: Right; Surgeon: You Wise MD; Location: [facility] MAIN OR REMOVAL CVC TUNNELED Right 07/07/2016 Laterality: Right; Surgeon: William Grider MD; Location: [facility] INTERVENTIONAL RADIOLOGY (VIR) CARDIAC VEIN ELECTRODE PLACEMENT FOR LV PACING N/A 05/26/2016 Laterality: N/A; Surgeon: Yi Cody MD; Location: [facility] EP PACEMAKER PLACEMENT N/A 05/26/2016 Laterality: N/A; Surgeon: Yi Cody MD; Location: [facility] EP INSERTION CVC TUNNELED Right 05/19/2016 Laterality: Right; Surgeon: William Grider MD; Location: [facility] INTERVENTIONAL RADIOLOGY (VIR) INSERTION CVC TUNNELED Left 05/18/2016 Laterality: Left; Surgeon: William Grider MD; Location: [facility] INTERVENTIONAL RADIOLOGY (VIR) PACEMAKER ELECTRODE REMOVAL N/A 05/08/2016 Laterality: N/A; Surgeon: Luigi Mart MD; Location: [facility] EP COLONOSCOPY DIAGNOSTIC N/A 03/20/2016 Laterality: N/A; Surgeon: Jeremiah García MD; Location: [facility] EP IMPLANT BIVENTRICULAR PACEMAKER TOTAL 08-07-2013 3 leads CARDIAC VEIN ELECTRODE PLACEMENT FOR LV PACING N/A 08/07/2013 Laterality: N/A; Surgeon: Favio Kline MD; Location: [facility] EP PACEMAKER ELECTRODE REMOVAL 08/07/2013 Surgeon: Favio Kline MD; Location: [facility] EP AV NODE ABLATION N/A 02/26/2013 Laterality: N/A; Surgeon: Favio Kline MD; Location: [facility] CARDIAC PACEMAKER PLACEMENT 10/20/2010 Implant: Medtronic [id number] Versa CARDIAC PACEMAKER PLACEMENT 08/31/2003 Implant: Medtronic [id number] [place] [address] APPENDECTOMY CO ANESTH,OPEN HEART SURGERY+PUMP Home Medications Current Outpatient Medications Medication Sig carveDILOL 6.25 MG tablet Take 1 tablet by mouth 2 times daily with meals. fluconazole 200 MG tablet Take 1 tablet by mouth See admin instructions. Starting 10/21, take 2 tablets once per day through 10/30. Starting 10/31, take 1 tablet once per day furOSEmide 20 MG tablet Take 20 mg by mouth 2 times daily. isosorbide mononitrate 30 MG Tab SR 24 HR tablet XL Take 1 tablet by mouth daily. levocarnitine 330 MG tablet Take 1 tablet by mouth. levothyroxine 75 MCG tablet Take 1 tablet by mouth every morning before breakfast. ondansetron 4 MG tablet Take 1 tablet by mouth every 6 hours as needed for Nausea / Vomiting (1st line for Nausea/Vomiting). pantoprazole [address] tablet DR Take 1 tablet by mouth daily. rifAXIMin 550 MG tablet 550 mg. sevelamer 800 MG tablet TAKE 3 TABLETS BY MOUTH THREE TIMES DAILY WITH MEALS (INCREASE TO 4 TABLETS IF EATING OUT) Tamsulosin HCl 0.4 MG capsule Take 1 capsule by mouth daily with dinner. ferrous sulfate 325 (65 Fe) MG tablet Take 1 tablet by mouth daily. Levetiracetam 1000 MG tablet Take 1 tablet by mouth at bedtime. rifAXIMin, M-1851, 550 MG tablet Take 1 tablet by mouth once. warfarin 1 MG tablet Take 6 tablets by mouth every evening at 6 PM. Allergies No Known Allergies Social History He is present today with his . Family History His family history includes Breast Cancer in his sister; Diabetes in his mother, paternal aunt, paternal uncle, and sister; Heart Defect in his paternal uncle; Heart Disease - Other in his brother, father, paternal aunt, and paternal uncle; Heart Surgery in his brother and father. Review of Systems GENERAL: Negative for any nausea, vomiting, fevers, chills, or weight loss. NEUROLOGIC: Negative for any blurry vision, blind spots, double vision, facial asymmetry, dysphagia, dysarthria, hemiparesis, hemisensory deficits, vertigo, ataxia. HEENT: Negative for any head trauma, neck trauma, neck stiffness, photophobia, phonophobia, sinusitis, rhinitis. CARDIAC: Negative for any chest pain, dyspnea on exertion, paroxysmal nocturnal dyspnea, peripheral edema. PULMONARY: Negative for any shortness of breath, wheezing, GASTROINTESTINAL: Negative for any abdominal pain, nausea, vomiting, bright red blood per rectum, melena. GENITOURINARY: Negative for any dysuria, hematuria, incontinence. INTEGUMENTARY: Negative for any rashes, cuts, insect bites. RHEUMATOLOGIC: Negative for any photosensitive rashes, history of vasculitis or kidney problems. +joint pain. HEMATOLOGIC: Negative for any abnormal bruising, frequent infections or bleeding. Physical Exam Blood pressure 103/59, pulse 71, temperature 98.1 F (36.7 C), temperature source Temporal, resp. rate 16, height 1.702 m (5' 7 ), weight 74.9 kg (165 lb 3.2 oz), SpO2 99 %. Wt Readings from Last 3 Encounters: 07/14/22 74.9 kg (165 lb 3.2 oz) 12/19/21 59 kg (130 lb) 12/16/21 74 kg (163 lb 3.2 oz) Constitutional: Chronically ill appearing male in a wheelchair. Oriented to person, place, and time. HEENT: Normocephalic, pupils equal and round, negative for any scleral icterus. Normal appearing oropharynx without any appreciable cervical lymphadenopathy. Cardiovascular: Mechanical heart sounds, without any appreciable rubs or gallops. Pulmonary: Normal breath sounds, without any appreciable crackles, wheezing or rhonchi. Abdominal: Soft, nontender, nondistended with normal bowel sounds without any appreciable ascites. Negative for any appreciable hepatosplenomegaly. Extremities: No LE edema. Negative for any asterixis. Skin: Negative for any appreciable rashes. Negative for palmar erythema. Objective Data: Labs: I reviewed the following: Lab Results Component Value Date SODIUM 137 10/20/2021 POTASSIUM 4.2 10/20/2021 CHLORIDE 100 10/20/2021 CO2 30 10/20/2021 BUN 15 10/20/2021 CREATSERUM 1.97 (H) 10/20/2021 Lab Results Component Value Date WBC 5.80 10/19/2021 HGB 8.1 (L) 10/19/2021 HCT 26.3 (L) 10/19/2021 PLATELET 80 (L) 10/19/2021 MCV 101.5 (H) 10/19/2021 Lab Results Component Value Date ALT 14 10/24/2021 AST 32 10/24/2021 GGT 190 (H) 05/15/2016 ALKPHOS 264 (H) 10/24/2021 BILITOTAL 1.6 (H) 10/24/2021 BILIDIRECT 0.7 (H) 10/24/2021 MELD-Na score: 27 at 10/12/2021 9:00 AM MELD score: 27 at 10/13/2021 12:06 AM Calculated from: Serum Creatinine: On dialysis. Using 4 mg/dL. Serum Sodium: 139 mmol/L (Using max of 137 mmol/L) at 10/12/2021 9:00 AM Total Bilirubin: 1.7 mg/dL at 10/11/2021 3:45 AM INR(ratio): 1.6 at 10/11/2021 3:45 AM Age: 71 years Serologic Workup: Hepatitis C AB: Negative Hepatitis B surface AB: Positive Hepatitis B surface AG: Negative Hepatitis B core total AB: Negative Hepatitis A Total IgG: Positive Ferritin: 224.3 Iron saturation: 20 DOUG: Negative AMA: Negative Anti Smooth Muscle AB: Negative Ig IgA: 158 IgM: 383 Ceruloplasmin: 37 A1AT level: 210 Imaging: RUQ US (03/17/2022); 1. Heterogeneous hepatic parenchymal echogenicity suggestive of hepatic parenchymal disease. No focal hepatic lesion. 2. A 2.8 cm right lower pole renal cyst. Echocardiogram (09/14/2021): Limited echo to evaluate valves. Left ventricle is normal in size. Low-normal LV systolic function. Ejection fraction is 50-55% by visual estimation. Device wire present in RA and RV. S/p mechanical AVR, well seated. Leaflets poorly visualized due to artifact. Mean gradient 11 mmHg. Mild-moderate paravalvular and valvular regurgitation. S/p mitral valve annuloplasty. Mitral leaflets are thickened with restricted motion. Mean gradient 6 mmHg. Mild regurgitation Mild tricuspid regurgitation Mild pulmonary regurgitation. Assuming normal RA pressure, RVSP estimated 53 mmHg There are no obvious prosthetic valve vegetations visualized. Compared to prior study 05/21/21, valvular hemodynamics are similar CT Angio (09/10/2021): 1. Increase in size of the left retroperitoneal hematoma compared to 09/08/2021. No active contrast extravasation identified. 2. Cirrhotic appearance of the liver. 3. Bilateral pleural effusions with associated atelectasis. 4. Unchanged left pubic pubic rami and acetabular fractures CT A/P without contrast (09/08/2021): 1. The left psoas hematoma and small retroperitoneal hematomas are stable however there is new extension into the left iliac fossa and down into the inguinal canal. 2. Small amount of free fluid in the pelvis. No loculated peritoneal fluid collections. 3. Morphology and slight nodularity of the liver suggesting cirrhosis. The spleen is not enlarged and no upper abdominal venous collaterals suggest portal venous hypertension. 4. Stable mild to moderate body wall edema. Stable bilateral pleural effusions, right greater than left. Assessment and Plan Ravindra Amador is a 72 y.o. male with a past medical history of decompensated cirrhosis complicated by HE that presented to clinic for follow up. His medical history is also notable for rheumatic heart disease s/p AV replacement, atrial flutter on Warfarin, CAD, MIA, HLD, ESRD on iHD and hypertension. PLAN: - Labs (BMP, LFTs, INR) should be performed every 3 months with an updated MELD score. - Given his underlying cirrhosis, I recommend HCC screening every 6 months with an abdominal imaging study in conjunction with a serum AFP. Next imaging due 08/2022 and ordered RUQ US - Variceal screening has been deferred for now given his medical conditions, need for AC and bridging therapy if stopped, etc. Can reconsider based on clinic course. He would not be an ideal candidate for band ligation given need for AC and has not tolerated beta blockers given hypotension. - Continue Rifaximin for management of hepatic encephalopathy. He was advised when this was started he no longer needed Lactulose. His symptoms seem stable for now and can hold on restarting. - For pain, I recommend acetaminophen, up to but not exceeding 2,000 mg daily, and would try to avoid using NSAIDs for pain control given their risk for mucosal ulceration, bleeding and nephrotoxicity. Would also recommend against using narcotics or benzodiazepines given their risk for precipitating or exacerbating hepatic encephalopathy. - Frailty/Deconditioning/Severe Calorie Malnutrition: Recommend Boost/Ensure/Glucerna shakes 1-2 per meal and most importantly 1 before bedtime. Protein: 1.2-1.5g/kg/day, caloies 30-35 kcal/kg/day. - Vaccination status: Immunity against HBV and HAV. - For follow up, he will return to clinic in 6 months with Kelby Peoples. Thank you for allowing us to participate in the care of Ravindra Amador. Vaishnavi Fry DO Head Stock Operator of Clinical Medicine Division of Gastroenterology, Hepatology and Nutrition [facility] Pager: [phone] documented in this encounter [facility] Diagnosis Cirrhosis of liver without ascites, unspecified hepatic cirrhosis type- Primary [facility] Diagnosis Cirrhosis of liver without ascites, unspecified hepatic cirrhosis type- Primary [facility] Diagnosis Urinary frequency- Primary [facility] Diagnosis Other cirrhosis of liver- Primary documented in this encounter [facility] Summary Purpose Family History No Family History Records FoundNo Family History Records FoundNo Family History Records Found Advance Directives Latest Code Status on File Code Status Date Activated Date Inactivated Comments Full Code 10/10/2021 6:50 PM Full Code 08/26/2021 5:39 PM 10/10/2021 6:50 PM Full Code 05/19/2021 11:54 PM 08/26/2021 5:39 PM Full Code 2021 7:22 AM 05/19/2021 11:54 PM Full Code 02/26/2021 5:53 PM 2021 7:22 AM Latest Code Status on File Code Status Date Activated Date Inactivated Comments Full Code 10/10/2021 6:50 PM Code Status History Code Status Date Activated Date Inactivated Comments Full Code 08/26/2021 5:39 PM 10/10/2021 6:50 PM Full Code 05/19/2021 11:54 PM 08/26/2021 5:39 PM Full Code 2021 7:22 AM 05/19/2021 11:54 PM Full Code 02/26/2021 5:53 PM 2021 7:22 AM Latest Code Status on File Code Status Date Activated Date Inactivated Comments Full Code 02/03/2023 6:13 AM Code Status History Code Status Date Activated Date Inactivated Comments Full Code 10/10/2021 6:50 PM 02/03/2023 6:13 AM Full Code 08/26/2021 5:39 PM 10/10/2021 6:50 PM Full Code 05/19/2021 11:54 PM 08/26/2021 5:39 PM Full Code 2021 7:22 AM 05/19/2021 11:54 PM Latest Code Status on File Code Status Date Activated Date Inactivated Comments Full Code 02/03/2023 6:13 AM Code Status History Code Status Date Activated Date Inactivated Comments Full Code 10/10/2021 6:50 PM 02/03/2023 6:13 AM Full Code 08/26/2021 5:39 PM 10/10/2021 6:50 PM Full Code 05/19/2021 11:54 PM 08/26/2021 5:39 PM Full Code 2021 7:22 AM 05/19/2021 11:54 PM Reason for Referral Specialty Diagnoses / Procedures Referred By Contac t Referred To Contact Diagnoses Cirrhosis of liver without ascites, unspecified hepatic cirrhosis type Procedures US ABDOMEN RUQ/LIVER/GB Kelby Peoples, PRODUCTION ASSISTANT-SPOOLING MACHINE OPERATOR [address] [place] [address] Referral ID Status Reason Start Date Expiration Date V isits Requested Visits Authorized [id number] New Request 12/19/2021 01/13/2023 1 1 Specialty Diagnoses / Procedures Referred By Contac t Referred To Contact Diagnoses Cirrhosis of liver without ascites, unspecified hepatic cirrhosis type Procedures US ABDOMEN RUQ/LIVER/GB Vaishnavi Fry DO [address] [place] [address] Referral ID Status Reason Start Date Expiration Date V isits Requested Visits Authorized [id number] New Request 07/14/2022 08/08/2023 1 1 Specialty Diagnoses / Procedures Referred By Contac t Referred To Contact Diagnoses Cirrhosis of liver without ascites, unspecified hepatic cirrhosis type Procedures US ABDOMEN LIVER DOPPLER Kelby Peoples, PRODUCTION ASSISTANT-SPOOLING MACHINE OPERATOR [address] [place] [address] Referral ID Status Reason Start Date Expiration Date V isits Requested Visits Authorized [id number] New Request 01/15/2023 02/09/2024 1 1 Specialty Diagnoses / Procedures Referred By Contac t Referred To Contact Diagnoses Other cirrhosis of liver Procedures CT ABDOMEN WITH AND WITHOUT CONTRAST CO CT SCAN OF ABDOMEN Vaishnavi Bains DO [address] [place] [address] Referral ID Status Reason Start Date Expiration Date V isits Requested Visits Authorized [id number] New Request 07/13/2023 08/06/2024 1 1 Additional Source Comments (unrecognized sect ion and content) No Status Records FoundNo Status Records FoundNo Status Records Found INFORMATION SOURCE (unrecogn ized section and content) DATE CREATED AUTHOR AUTHOR'S ORGANIZ ATION 12/26/2021 [facility] DATE CREATED AUTHOR AUTHOR'S ORGANIZ ATION 07/14/2023 [facility] Reason for Visit (unrecogniz ed section and content) Referral ID Status Reason Start Date Expiration Date V isits Requested Visits Authorized [id number] New Request 12/19/2021 01/13/2023 1 1 Reason Comments Follow-up Reason Comments Follow-up Cirrhosis Reason Comments Cystoscopy Specialty Diagnoses / Procedures Referred By Contac t Referred To Contact Urology Diagnoses Abnormal radiologic findings on diagnostic imaging of renal pelvis, ureter, or bladder Procedures CO CYSTOURETHROSCOPY FOR DIAGNOSIS Mingo Ibarra MD [address] [place] [address] Referral ID Status Reason Start Date Expiration Date V isits Requested Visits Authorized [id number] New Request 02/06/2023 03/02/2024 1 1 Reason Onset Date Comments Medication Refill 10/03/2023 Care Teams (unrecognized sec tion and content) Market Stall Vendor Relationship Specialty Start Date End Date Nikita Atkinson MD [address] [place] [phone] PCP - General Family Medicine 02/26/21 Jeff Grullon MD [address] [place] [address] Cardiovascular Disease 05/19/13 Karthikeyan Turner MB/[facility]B [address] [place] [address] Oncologist Hematology 08/28/21 Sharron Calderon DO [address] [place] [address] Business Integration Manager Nephrology 08/28/21 Isaac Min MD [address] [place] [address] Reel Fed Printer Pulmonary Disease 08/28/21 Market Stall Vendor Relationship Specialty Start Date End Date Nikita Atkinson MD [address] [place] [phone] PCP - General Family Medicine 02/26/21 Jeff Grullon MD [address] [place] [address] Cardiovascular Disease 05/19/13 Karthikeyan Turner MB/CHB [address] [place] [address] Oncologist Hematology 08/28/21 Sharron Calderon DO [address] [place] [address] Business Integration Manager Nephrology 08/28/21 Isaac Min MD [address] [place] [address] Reel Fed Printer Pulmonary Disease 08/28/21 Market Stall Vendor Relationship Specialty Start Date End Date Castro Menjivar DO [address] [place] [address] [place] [phone] PCP - General Family Medicine 02/03/23 Jeff Grullon MD [address] [place] [address] Cardiovascular Disease 05/19/13 Karthikeyan Turner MB/CHB [address] [place] [address] Oncologist Hematology 08/28/21 Sharron Calderon DO [address] [place] [address] Business Integration Manager Nephrology 08/28/21 Isaac Min MD [address] [place] [address] Reel Fed Printer Pulmonary Disease 08/28/21 Market Stall Vendor Relationship Specialty Start Date End Date Castro Menjivar DO [address] [place] [address] [place] [address] [place] [address] PCP - General Family Medicine 02/03/23 Jeff Grullon MD [address] [place] [address] Cardiovascular Disease 05/19/13 Karthikeyan Turner MB/CHB [address] [place] [address] Oncologist Hematology 08/28/21 Sharron Calderon DO [address] [place] [address] Business Integration Manager Nephrology 08/28/21 Isaac Min MD [address] [place] [address] Reel Fed Printer Pulmonary Disease 08/28/21 Market Stall Vendor Relationship Specialty Start Date End Date Castro Menjivar [address] [place] [address] [place] [address] PCP - General Family Medicine 02/03/23 Jeff Grullon MD [address] [place] [address] Cardiovascular Disease 05/19/13 Karthikeyan Turner MB/[facility] [address] [place] [address] Oncologist Hematology 08/28/21 Sharron Calderon DO [address] [address] Business Integration Manager Nephrology 08/28/21 Isaac Min MD [address] [place] [address] Reel Fed Printer Pulmonary Disease 08/28/21 FOR RECORDS PERTAINING TO PATIENTS WHO ARE OR HAVE BEEN ENROLLED IN A CHEMICAL DEPENDENCY/SUBSTANCEABUSE PROGRAM, SOME INFORMATION MAY BE OMITTED. This clinical summary was aggregated from multiple sources. Caution should be exercised in using it in the provision of clinical care. This summary normalizes information from multiple sources, and as a consequence, information in this document may materially change the coding, format and clinical context of patient data. In addition, data may be omitted in some cases. CLINICAL DECISIONS SHOULD BE BASED ON THE PRIMARY CLINICAL RECORDS. [employer] [facility]. provides no warranty or guarantee of the accuracy or completeness of information in this document.
== END | disposition home or self-care (01) ==
LOC: US 09:19
PROVIDERS: PCP Family Medicine
DX: K74.69 Other cirrhosis of liver (principal)
CPT/HCPCS: 76705

== ENCOUNTER → 2024-04-24 | Outpatient (CLI) | payer MEDICARE, OTHER, SELFPAY ==
[2024-04-24 09:45] LABS: AST(SGOT) 59 U/L (15-37); Alanine Aminotransfer ALT/SGPT 50 U/L (16-61); Albumin, Serum 3.3 g/dL (3.2-5.0); Alkaline Phosphatase 346 U/L (45-117); Bilirubin, Direct 0.32 mg/dL (0.00-0.30); Globulin 5.8 g/dL (2.2-4.2); Protein, Total 9.1 g/dL (6.4-8.2)
== END | disposition home or self-care (01) ==
PROVIDERS: PCP Family Medicine
DX: K74.69 Other cirrhosis of liver (principal)
CPT/HCPCS: 36415; 80076; 82105

== ENCOUNTER → 2024-06-19 | Outpatient (CLI) | payer MEDICARE, OTHER, SELFPAY ==
--- NOTE | 2024-06-19 14:35 | RAD_ITS ---
STUDY: X-RAY - RIGHT HAND, ATTENTION INDEX FINGER REASON FOR EXAM: Male, 74 years old. TRAUMA TECHNIQUE: 3 view(s) of the finger were obtained. COMPARISON: None. FINDINGS: Normal metacarpal head. Normal metacarpophalangeal joint. Nondisplaced oblique fracture through the midportion of the proximal phalanx of the index finger. Normal middle phalanx. Normal distal phalanx. Normal proximal interphalangeal joint. Normal distal interphalangeal joint. Soft tissue swelling. RAD/Finger(s) Min 2 Views IMPRESSION: Nondisplaced oblique fracture through the midportion of the proximal phalanx of the index finger. Overlying soft tissue swelling. Electronically Signed: Donte Álvarez MD at 14:50 EDT ,
== END | disposition home or self-care (01) ==
LOC: RAD 14:27
PROVIDERS: PCP Family Medicine; Referring Provider Family Medicine; Visit Provider Family Medicine
DX: S69.91XA Unspecified injury of right wrist, hand and finger(s), initial encounter (principal); X58.XXXA Exposure to other specified factors, initial encounter
CPT/HCPCS: 73140

== ENCOUNTER → 2024-07-02 | Outpatient (CLI) | payer MEDICARE, OTHER, SELFPAY ==
--- NOTE | 2024-07-02 08:12 | US_ITS ---
STUDY: ABDOMINAL ULTRASOUND - RIGHT UPPER QUADRANT REASON FOR VISIT: Male, 74 years old SCREENING FOR HCC, CIRRHOSIS OF LIVER TECHNIQUE: Ultrasound evaluation of the right upper quadrant was performed with real-time and static hart-scale imaging. TECHNICAL QUALITY: Adequate. COMPARISON: Comparison is made with prior study dated December 26, 2023. FINDINGS: Liver: The liver measures 18.9 cm. There is a heterogeneous echogenicity of the liver. The bile ducts are within normal limits. There is hepatic color flow. The direction of portal flow is hepatopetal. There is no demonstrated mass lesion. Gallbladder: The patient is status post cholecystectomy. Common Bile Duct (C.B.D.): The common bile duct measures 6.1 mm. Pancreas: Normal size of the head, body and tail of the pancreas. There is increased echogenicity of the pancreas. There is no demonstrated pancreatic mass or cyst. Right Kidney: Normal size of the right kidney. The right kidney measures 11.8 cm x 4.3 cm x 4.3 cm. Normal renal cortex. The right cortex measures 1 cm. There is a 4.3 cm x 3.8 cm x 3.3 cm right renal cyst There is no right hydronephrosis. US/Abdomen Limited IMPRESSION: Mild hepatomegaly and heterogeneous echotexture of the liver. Status post cholecystectomy. Stable right renal cyst. Electronically Signed: Donte Álvarez MD at 16:19 EDT ,
== END | disposition home or self-care (01) ==
LOC: US 08:11
PROVIDERS: PCP Family Medicine
DX: K74.69 Other cirrhosis of liver (principal)
CPT/HCPCS: 76705

== ENCOUNTER → 2024-10-08 | Outpatient (CLI) | payer MEDICARE, OTHER, SELFPAY ==
[2024-10-08 12:57] LABS: T4 Free Direct 0.89 ng/dL (0.76-1.46)
== END | disposition home or self-care (01) ==
LOC: BFHLAB 10:03
PROVIDERS: PCP Family Medicine; Referring Provider Family Medicine; Visit Provider Family Medicine
DX: E03.9 Hypothyroidism, unspecified (principal); Z12.5 Encounter for screening for malignant neoplasm of prostate
CPT/HCPCS: 36415; 84153; 84439; 84443; G0103

== ENCOUNTER → 2024-11-25 | Outpatient (CLI) | payer MEDICARE, OTHER, SELFPAY ==
[2024-11-25 19:12] LABS: ALB/GLOB Ratio 0.6 RATIO (0.9-2.4); AST(SGOT) 82 U/L (15-37); Alanine Aminotransfer ALT/SGPT 83 U/L (16-61); Albumin, Serum 3.6 g/dL (3.2-5.0); Alkaline Phosphatase 397 U/L (45-117); Anion Gap 10 (5-15); BUN 46 mg/dL (7-18); Calcium,Total 9.4 mg/dL (8.5-10.1); Chloride 94 mmol/L (98-107); Creatinine, Serum 6.61 mg/dL (0.70-1.30); EST Glomerular Filtration Rate 9 mL/min (>60); Est Glom Filt Rate - Afr Amer 11 mL/min (>60); Globulin 6.2 g/dL (2.2-4.2); Glucose 107 mg/dL (74-106); Potassium 4.2 mmol/L (3.5-5.1); Protein, Total 9.8 g/dL (6.4-8.2); Sodium Level 131 mmol/L (136-145)
[2024-11-28 14:08] LABS: Albumin 4.1 g/dL (2.9-4.4); Alpha-1-Globulins 0.4 g/dL (0.0-0.4); Alpha-2-Globulins 0.8 g/dL (0.4-1.0); Gamma Globulin 2.2 g/dL (0.4-1.8); Immunoglobulin A 183 mg/dL (61-437); Immunoglobulin G 1583 mg/dL (603-1613); Immunoglobulin M 982 mg/dL (15-143); PROEL- TOTAL PROTEIN 8.8 g/dL (6.0-8.5)
== END | disposition home or self-care (01) ==
LOC: MTLAB 14:45
PROVIDERS: PCP Family Medicine; Referring Provider Psychiatry & Neurology Neurology; Visit Provider Psychiatry & Neurology Neurology
DX: E72.20 Disorder of urea cycle metabolism, unspecified (principal); G31.84 Mild cognitive impairment of uncertain or unknown etiology; G62.9 Polyneuropathy, unspecified
CPT/HCPCS: 36415; 80053; 82140; 82784; 84165; 86334

== ENCOUNTER 2024-12-16 14:27 | Emergency (ER) | payer MEDICARE, OTHER, SELFPAY ==
[2024-12-16 14:29] VITALS: BP 118/78; PULSE 98; RESP 18; TEMP 37; O2SAT 98; BMI 26.9
--- NOTE | 2024-12-16 17:51 | EDS_ITS ---
HPI History of Present Illness Chief Complaint: Other, Pain/Inj Informant: patient and spouse/S.O. Narrative Narrative: Sent in here by nephrology for evaluation of his right chest Vas-Cath. Dialysis patient 4 days a week at home. Spouse helps him. He had cath exchange [address] Wen secondary to a fracture of the At that time per spouse. 1 hour into dialysis, noted at least 3 tablespoons of blood from the rubber tubing just proximal to the. She stopped dialysis clean off the blood. She flushed with saline and there was no leakage. She contacted dialysis nurse who discussed with nephrology team. She was told not to use it and to go to the ED for evaluation by general surgery. 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 History of rheumatic fever as a child COVID-19 Infectious endocarditis Non-ST elevation (NSTEMI) myocardial infarction CAD (coronary artery disease) History of pacemaker Coagulopathy Airway intubation performed without difficulty Cardiopulmonary arrest with successful resuscitation Hypothyroidism (acquired) Abnormal results of thyroid function studies Hyperthyroidism MIA (obstructive sleep apnea) Dyspnea Non-rheumatic mitral regurgitation Non-rheumatic mitral valve stenosis Iron deficiency History of diffuse large B-cell lymphoma Anemia in chronic kidney disease Pure hypercholesterolemia Biventricular cardiac pacemaker in situ (~05/26/16) Encounter for long-term (current) use of high-risk medication 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, 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 TIA (transient ischemic attack) (~11/19/15) History of DVT (deep vein thrombosis) Gout Paroxysmal ventricular tachycardia Atrial flutter Cardiomyopathy in disease classified elsewhere MRSA (methicillin resistant Staphylococcus aureus) infection History of non-Hodgkin's lymphoma Endocarditis due to Staphylococcus Benign essential hypertension Home Medications ?Medication ?Instructions ?Recorded ?Last Taken ?Type levothyroxine 75 mcg tablet 75 mcg PO DAILY thyroid 08/24/21 12/16/24 History vitamin B complex-vitamin C-folic 1 tab PO DAILY vitamin 01/10/22 12/16/24 History acid 0.8 mg tablet (Nephro-Baltazar) doxycycline hyclate 100 mg tablet 100 mg PO BID infection 11/27/22 12/16/24 History fluconazole 200 mg tablet 200 mg PO DAILY 06/11/23 12/16/24 History sucroferric oxyhydroxide 500 mg 1,000 mg PO QPC 12/12/23 12/15/24 History chewable tablet (Velphoro) albuterol sulfate 90 mcg/actuation 2 puff inhalation Q4-6H PRN 03/19/24 Unknown History aerosol inhaler shortness of breath or wheezing alprazolam 1 mg tablet (Xanax) 1 mg PO QHS Sleep 05/28/24 12/15/24 History cyclobenzaprine 10 mg tablet 10 mg PO BID 05/28/24 12/16/24 History midodrine 10 mg tablet 40 mg PO DAILY 05/28/24 12/16/24 History pantoprazole 40 mg tablet,delayed 40 mg PO QAM #90 tabs 12/01/24 12/16/24 Rx release cinacalcet 30 mg tablet 30 mg PO MOWEFR 12/16/24 Unknown History lactulose 10 gram/15 mL oral 15 ml PO BID 12/16/24 Unknown History solution (Constulose) warfarin 1 mg tablet (Jantoven) 1 mg PO MOTU 12/16/24 12/16/24 History warfarin 2 mg tablet 2 mg PO SUTUWETHFR 12/16/24 12/15/24 History Allergy/AdvReac Type Severity Reaction Status Date / Time No Known Allergies Allergy Verified 11/25/24 13:56 Family History Father CAD (coronary artery disease) CABG Brother CAD (coronary artery disease) CABG Mother Diabetes Sister Breast cancer Diabetes Sister Cancer breast Diabetes Surgical History History of mechanical aortic valve replacement (~08/24/03) History of heart valve replacement with mechanical valve History of atrioventricular chiquita ablation History of heart valve replacement with mechanical valve History of evacuation of hematoma History of cholecystectomy History of appendectomy dual chamber pacemaker implantation (~10/2010) History of aortic valve replacement (~08/2003) History of mitral valve repair (~08/24/03) History of mechanical aortic valve replacement (~1986) Social History household members: spouse housing: house current occupational status: retired current occupational exposures/hazards: No history of recent travel: No Smoking Status: Never smoker alcohol intake: never substance use type: does not use caffeine: No what type of physical activity do you participate in: weight training and other details: Nustep frequency: 3-4 times per week duration: 45-60 minutes/day seatbelt use: always do you feel safe at home: Yes ROS ROS ED Constitutional Constitutional ED: Denies chills, fever(s) or sweats ENT ENT ED: Denies sore throat Cardiovascular Cardiovascular: Denies chest pain, leg edema, palpitations or racing heartbeat Respiratory/Chest Respiratory/Chest: Denies cough, dyspnea or dyspnea on exertion Gastrointestinal Gastrointestinal: Denies abdominal pain, diarrhea, nausea or vomiting Musculoskeletal Musculoskeletal: Denies back pain, extremity pain or neck pain Neurologic Neurologic: Denies headache(s), paresthesias or weakness EXAM Physical Exam Const Vital Signs: 12/16/24 14:29 12/16/24 18:28 12/16/24 19:52 Temperature 98.6 F 97.8 F Temperature Source Oral Pulse Rate 98 70 70 Respiratory Rate 18 18 Blood Pressure 118/78 105/50 L 112/56 L Blood Pressure Mean 91 68 74 Pulse Ox 98 97 100 Oxygen Delivery Method Room Air Room Air Positive well nourished and well developed General Appearance ED: well developed and NAD HEENT Reports moist mucous membranes normocephalic and atraumatic Eyes General Eye ED: Yes normal appearance of both eyes Neck full ROM Chest Wall Chest Narrative: Right chest wall vas cath dressing clean, dry, intact. rubber between the cap and tubing was cracked. Chest: tenderness Resp normal respiratory effort and normal air movement Effort and Inspection: symmetric chest movement; Negative for respiratory distress Cardio regular rate, regular rhythm and no murmurs Peripheral Pulses: pulses 2+ throughout GI normal to inspection, nondistended, normoactive bowel sounds and non-tender Palpation: Negative for guarding or rebound tenderness present Extremity normal to inspection General Extremety ED: Negative for edema or tenderness General Extremity: Negative for edema Neuro oriented x3 and no sensory deficits noted Sensorium / Orientation: awake and alert Skin no rashes or lesions noted and no wounds MDM MDM MDM Narrative Medical decision making narrative: Interventions / MDM: Differential diagnosis: Vas cath evaluation, end-stage renal disease on hemodialysis, chronic anticoagulation, nonalcoholic cirrhosis Diagnosis considered but do not suspect: N/A My EKG interpretation: N/A Imaging independently reviewed and interpreted by myself: N/A External documents reviewed: N/A Test considered but not ordered:N/A ED course: There is cracking of the rubber between the tubing and the cap. I di scussed with on-call surgeon Dr. Abdullahi who was aware of the patient. He will evaluate the patient. However patient is on warfarin. He would like labs drawn. He will see and help with disposition. 1930: Labs chronic transaminitis, creatinine 88.22 BUN 55. Potassium 4.3. Patient was evaluated by surgery, he was able to flush the tubing there was no leakage. Recommend referral to vascular surgery for outpatient evaluation and further options if needed. Re-evaluation: stable Disposition discussed with patient/family/significant other: Patient seen other Case discussed with consulting clinician: Surgery This note was generated with [employer] dictation software. It may contain incorrect words, spelling, and punctuation that were not noted in checking the note before signing. Lab Data Attestation: I reviewed the patient's lab results. Labs: Laboratory Results - last 24 hr 12/16/24 18:12 WBC 8.4 RBC 3.22 L Hgb 11.1 L Hct 33.7 L MCV 104.7 H MCH 34.5 H MCHC 32.9 RDW Std Deviation 67.9 H RDW Coeff of Jennifer 17.8 H Plt Count 214 MPV 9.0 Immature Gran % (Auto) 0.500 Neut % (Auto) 63.8 Lymph % (Auto) 19.7 Galax % (Auto) 9.1 Eos % (Auto) 5.8 H Baso % (Auto) 1.1 H Absolute Neuts (auto) 5.4 Absolute Lymphs (auto) 1.65 Nucleated RBC % 0 Platelet Estimate ADEQUATE RBC Morphology N CHROM Anisocytosis 1+ Macrocytosis 1+ PT 22.6 H INR 1.9 APTT 88.1 H Sodium 135 L Potassium 4.3 Chloride 97 L Carbon Dioxide 29.0 Anion Gap 10 BUN 55 H Creatinine 8.22 H* Estim Creat Clear Calc 7.26 Est GFR (MDRD) Af Amer 8 L Est GFR (MDRD) Non-Af 7 L BUN/Creatinine Ratio 6.7 L Glucose 101 Calcium 9.0 Total Bilirubin 0.80 Direct Bilirubin 0.44 H AST 52 H ALT 66 H Alkaline Phosphatase 449 H Total Protein 9.0 H Albumin 3.5 Globulin 5.5 H Discharge Plan Triage Chief Complaint: Other, Pain/Inj ED Provider: Diego Reaves Dx/Rx/DC Orders Clinical Impression: Vascular catheter dysfunction, ESRD on hemodialysis, Subtherapeutic international normalized ratio (INR), Liver cirrhosis, Transaminitis Prescriptions: No Action alprazolam [Xanax] 1 mg tablet 1 mg PO QHS doxycycline hyclate 100 mg tablet 100 mg PO BID fluconazole 200 mg tablet 200 mg PO DAILY midodrine 10 mg tablet 40 mg PO DAILY Rx Instructions: TAKE UP TO 4 TABS ONLY ON DIALYSIS DAYS Velphoro 500 mg tablet,chewable 1,000 mg PO QPC cyclobenzaprine 10 mg tablet 10 mg PO BID albuterol sulfate 90 mcg/actuation HFA aerosol inhaler 2 puff inhalation Q4-6H PRN (Reason: shortness of breath or wheezing) Patient Comments: pt hasnt taken in over year levothyroxine 75 mcg tablet 75 mcg PO DAILY Nephro-Baltazar 0.8 mg tablet 1 tab PO DAILY lactulose [Constulose] 10 gram/15 mL solution 15 ml PO BID Patient Comments: PT HASNT STARTED YET. PT ADVISED TO TITRATE AND SEE WHAT WORKS. warfarin [Jantoven] 1 mg tablet 1 mg PO MOTU warfarin 2 mg tablet 2 mg PO SUTUWETHFR Protocol: Dose Management Condition: Sunday Dose/Route: 2 mg Instruction: 1 x 2 mg tablet Condition: Sunday Dose/Route: 1 mg Instruction: 0.5 x 2 mg tablets Condition: Sunday Dose/Route: 1 mg Instruction: 0.5 x 2 mg tablets Condition: Sunday Dose/Route: 2 mg Instruction: 1 x 2 mg tablet Condition: Dose/Route: 2 mg Instruction: 1 x 2 mg tablet Condition: Sunday Dose/Route: 2 mg Instruction: 1 x 2 mg tablet Condition: Sunday Dose/Route: 2 mg Instruction: 1 x 2 mg tablet Protocol Text: Adjustment Start Date: Sunday12/16/24 INR Value: 2.5 INR Date: 12/15/24 Recheck Date: 12/23/24 cinacalcet 30 mg tablet 30 mg PO Patient Comments: TAKE 1 TABLET BY MOUTH THREE DAYS (TIMES) A WEEK pantoprazole 40 mg tablet,delayed release (DR/EC) 40 mg PO QAM Qty: 90 3RF Primary Care Provider: David Menjivar Referrals: Pako Lemus MD [Med Staff - Active Staff] - 3-5 Days David Menjivar DO [Primary Care Provider] - Activity Restrictions/Additional Instructions: Your INR is 1.9 today. Your labs are stable. He was seen by Dr. Abdullahi in the ED. Catheter is flushing with no leakage. Continue to use at home. Follow-up with Dr. Lemus for evaluation. Print Language: Azerbaijani Disposition Disposition: Home, Self Care Discharge Date/Time: 12/16/24 19:53
[2024-12-16 18:22] LABS: Absolute Lymphocyte Count 1.65 X10^3/uL (0.83-4.51); Absolute Neutrophil Count 5.4 X10^3/uL (2.0-7.7); Basophil# 0.09 X10^3/uL; Basophil% 1.1 % (0-1); Eosinophil# 0.49 X10^3/uL; Eosinophils% 5.8 % (0-5); Hematocrit 33.7 % (40-54); Hemoglobin 11.1 g/dL (13.0-16.5); Lymphocyte # 1.65 X10^3/ul (0.83-4.51); Lymphocyte % 19.7 % (19-41); Mean Corp Hgb Conc 32.9 g/dL (32-36); Mean Corpuscular Hgb 34.5 pg (27.0-32.0); Mean Corpuscular Volume 104.7 fL (80-94); Monocyte# 0.76 X10^3/uL; Monocyte% 9.1 % (0-10); NRBC Flagged by Analyzer 0 % (0-5); Neutrophil # 5.36 X10^3/uL (2.7-7.7); Neutrophil % 63.8 % (47-70); POSITIVE MORPHOLOGY YES; Platelet Count 214 K/mm3 (150-450); RBC Distribution Width CV 17.8 % (11.6-14.6); RBC Distribution Width SD 67.9 fl (35.1-43.9); Red Blood Count 3.22 M/mm3 (4.6-6.2); White Blood Count 8.4 K/mm3 (4.4-11.0)
[2024-12-16 18:28] VITALS: BP 105/50; PULSE 70; O2SAT 97
[2024-12-16 18:31] LABS: Differential Indicated SCAN CRITERIA MET
[2024-12-16 18:34] LABS: International Normalized Ratio 1.9; Prothrombin Time (Protime)PT. 22.6 SECONDS (11.7-14.9)
[2024-12-16 18:36] LABS: Partial Thromboplast Time 88.1 Seconds (24.1-36.2)
[2024-12-16 19:14] LABS: Anisocytosis 1+; Macrocytosis 1+; Platelet Estimate ADEQUATE (ADEQ); Red Cell Morphology N CHROM NORMAL (NORM C&C)
[2024-12-16 19:19] LABS: AST(SGOT) 52 U/L (15-37); Alanine Aminotransfer ALT/SGPT 66 U/L (16-61); Albumin, Serum 3.5 g/dL (3.2-5.0); Alkaline Phosphatase 449 U/L (45-117); Anion Gap 10 (5-15); BUN 55 mg/dL (7-18); BUN/Creat Ratio 6.7 RATIO (10-20); Bilirubin, Direct 0.44 mg/dL (0.00-0.30); Chloride 97 mmol/L (98-107); Creatinine, Serum 8.22 mg/dL (0.70-1.30); EST Glomerular Filtration Rate 7 mL/min (>60); Est Glom Filt Rate - Afr Amer 8 mL/min (>60); Estimated Creatinine Clearance 7.26 ml/min; Globulin 5.5 g/dL (2.2-4.2); Glucose 101 mg/dL (74-106); Potassium 4.3 mmol/L (3.5-5.1); Sodium Level 135 mmol/L (136-145)
[2024-12-16] MEDS: Heparin 10,000 UNITS/10 ML Vial IV (19:22)
--- NOTE | 2024-12-16 19:36 | EX.PCM.CON.S ---
Assessment & Plan Assessment/Plan (1) Problem with dialysis access: PLAN: Patient is a 74-year-old male with history of ESRD related to adverse effect from medications on home hemodialysis via a tunneled right internal jugular hemodialysis catheter who presents on direction from his dialysis center because of concerns for a tear in the catheter. However, with patient's 's history and direct exam of the catheter the tear is in a outer rubber sheath that appears to serve a protective coupling function to the underlying tubing and port. There appeared to be no disruption of the tubing. In order to further confirm the integrity of the catheter I sterilely accessed the venous port first aspirating a small volume of blood without observing any extravasation from the catheter tubing. I then locked the catheter with 2 mL of injectable heparin concentration 1000 units/mL. A sterile chlorhexidine was placed over the port. Patient's spouse expressed relief and appreciation for this demonstration. I have asked emergency medicine to provide referral to vascular surgery as patient will need to be considered for an atypical dialysis access and may require a nonanatomic AV graft. Lastly, patient's spouse was advised to try to reinforce the minute tear with a small amount of electrical tape until which time the catheter can hopefully be discontinued. Alonso Abdullahi MD General Surgery Endocrine Surgery Pager: [facility] [address] [place] [address], [address] [place] [address] Office: [phone] HPI Consult Data Date of Consult: 12/16/24 HPI Narrative Reason for Consultation: Hemodialysis access complication HPI Narrative: CHRISTIAN AMADOR, is a 74 M who presents to [facility] on direction from their dialysis center, for sending us after contacting them with a concern about possible leaking dialysis access. Patient presents with his who provides most of the history. She states that her 's been on hemodialysis since approximately 2020 when his progressive chronic kidney disease further deteriorated. Patient's notes that the renal dysfunction began with an initial insult related to use of amphotericin B for a remote fungemia. They report that Dr. Ford Wen performed patient's initial tunneled dialysis catheter and then repeated the procedure in March 2023 after portion of the catheter cracked and could not be repaired. Mrs. Amador further adds that her was deemed a poor candidate for AV fistula given a history of extremity clots and a previously?placed left?sided pacer that had to be relocated to the right side on the account of a bacteremia. She goes on to say that he also was disqualified from consideration for peritoneal dialysis on the basis of a history of a complicated hematoma evacuation from a rectus sheath hematoma and subsequent MRSA infection years ago that led to a 3-month hospital stay with the [facility]. Therefore, given her 's poor health and these disqualification's they have continued on hemodialysis at home via the tunneled right IJ hemodialysis catheter. She details that earlier today she had initiated dialysis and was approximately 1 hour in when she believes she noticed some blood coming from a tear in a rubber covering of the access port. After noting this tear she contacted the dialysis center and was advised as above. 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 continuous churn (current) use of 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 History of rheumatic fever as a child COVID-19 Infectious endocarditis Non-ST elevation (NSTEMI) myocardial infarction CAD (coronary artery disease) History of pacemaker Coagulopathy Airway intubation performed without difficulty Cardiopulmonary arrest with successful resuscitation Hypothyroidism (acquired) Abnormal results of thyroid function studies Hyperthyroidism MIA (obstructive sleep apnea) Dyspnea Non-rheumatic mitral regurgitation Non-rheumatic mitral valve stenosis Iron deficiency History of diffuse large B-cell lymphoma Anemia in chronic kidney disease Pure hypercholesterolemia Biventricular cardiac pacemaker in situ (~05/26/16) Encounter for long-term (current) use of high-risk medication 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, 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 TIA (transient ischemic attack) (~11/19/15) History of DVT (deep vein thrombosis) Gout Paroxysmal ventricular tachycardia Atrial flutter Cardiomyopathy in disease classified elsewhere MRSA (methicillin resistant Staphylococcus aureus) infection History of non-Hodgkin's lymphoma Endocarditis due to Staphylococcus Benign essential hypertension Home Medications ?Medication ?Instructions ?Recorded ?Last Taken ?Type levothyroxine 75 mcg tablet 75 mcg PO DAILY thyroid 08/24/21 12/16/24 History vitamin B complex-vitamin C-folic 1 tab PO DAILY vitamin 01/10/22 12/16/24 History acid 0.8 mg tablet (Nephro-Baltazar) doxycycline hyclate 100 mg tablet 100 mg PO BID infection 11/27/22 12/16/24 History fluconazole 200 mg tablet 200 mg PO DAILY 06/11/23 12/16/24 History sucroferric oxyhydroxide 500 mg 1,000 mg PO QPC 12/12/23 12/15/24 History chewable tablet (Velphoro) albuterol sulfate 90 mcg/actuation 2 puff inhalation Q4-6H PRN 03/19/24 Unknown History aerosol inhaler shortness of breath or wheezing alprazolam 1 mg tablet (Xanax) 1 mg PO QHS Sleep 05/28/24 12/15/24 History cyclobenzaprine 10 mg tablet 10 mg PO BID 05/28/24 12/16/24 History midodrine 10 mg tablet 40 mg PO DAILY 05/28/24 12/16/24 History pantoprazole 40 mg tablet,delayed 40 mg PO QAM #90 tabs 12/01/24 12/16/24 Rx release cinacalcet 30 mg tablet 30 mg PO MOWEFR 12/16/24 Unknown History lactulose 10 gram/15 mL oral 15 ml PO BID 12/16/24 Unknown History solution (Constulose) warfarin 1 mg tablet (Jantoven) 1 mg PO MOTU 12/16/24 12/16/24 History warfarin 2 mg tablet 2 mg PO SUTUWETHFR 12/16/24 12/15/24 History Allergy/AdvReac Type Severity Reaction Status Date / Time No Known Allergies Allergy Verified 11/25/24 13:56 Family History Father CAD (coronary artery disease) CABG Brother CAD (coronary artery disease) CABG Mother Diabetes Sister Breast cancer Diabetes Sister Cancer breast Diabetes Surgical History History of mechanical aortic valve replacement (~08/24/03) History of heart valve replacement with mechanical valve History of atrioventricular chiquita ablation History of heart valve replacement with mechanical valve History of evacuation of hematoma History of cholecystectomy History of appendectomy dual chamber pacemaker implantation (~10/2010) History of aortic valve replacement (~08/2003) History of mitral valve repair (~08/24/03) History of mechanical aortic valve replacement (~1986) Social History household members: spouse housing: house current occupational status: retired current occupational exposures/hazards: No history of recent travel: No Smoking Status: Never smoker alcohol intake: never substance use type: does not use caffeine: No what type of physical activity do you participate in: weight training and other details: Nustep frequency: 3-4 times per week duration: 45-60 minutes/day seatbelt use: always do you feel safe at home: Yes Physical Exam Const alert, oriented x3, no apparent distress and healthy appearing Chest Chest Narrative: Dialysis catheter in place and right upper chest with a clean dry dressing over the tunnel site. Patient's spouse points to a 1 mm tear in the rubber covering over the outer portion of the venous port. Through this tear the underlying catheter tubing is examined and there are no clear areas of fracture or catheter disruption. Lab / Micro Data 12/16/24 18:12 12/16/24 18:12 Labs: Laboratory Results - last 24 hr 12/16/24 18:12: WBC 8.4, RBC 3.22 L, Hgb 11.1 L, Hct 33.7 L, MCV 104.7 H, MCH 34.5 H, MCHC 32.9, RDW Std Deviation 67.9 H, RDW Coeff of Jennifer 17.8 H, Plt Count 214, MPV 9.0, Immature Gran % (Auto) 0.500, Neut % (Auto) 63.8, Lymph % (Auto) 19.7, [place] % (Auto) 9.1, Eos % (Auto) 5.8 H, Baso % (Auto) 1.1 H, Absolute Neuts (auto) 5.4, Absolute Lymphs (auto) 1.65, Nucleated RBC % 0, Platelet Estimate ADEQUATE, RBC Morphology N CHROM, Anisocytosis 1+, Macrocytosis 1+, PT 22.6 H, INR 1.9, APTT 88.1 H, Sodium 135 L, Potassium 4.3, Chloride 97 L, Carbon Dioxide 29.0, Anion Gap 10, BUN 55 H, Creatinine 8.22 H*, Estim Creat Clear Calc 7.26, Est GFR (MDRD) Af Amer 8 L, Est GFR (MDRD) Non-Af 7 L, BUN/Creatinine Ratio 6.7 L, Glucose 101, Calcium 9.0, Total Bilirubin 0.80, Direct Bilirubin 0.44 H, AST 52 H, ALT 66 H, Alkaline Phosphatase 449 H, Total Protein 9.0 H, Albumin 3.5, Globulin 5.5 H Charges/Coding Visit Charges Office Visits / Consults: 49416 ED Visit; Moderate Severity
[2024-12-16 19:52] VITALS: BP 112/56; PULSE 70; RESP 18; TEMP 36.6; O2SAT 100
== END 2024-12-16 19:53 | disposition home or self-care (01) ==
PROVIDERS: Emergency Provider Emergency Medicine; PCP Family Medicine; Visit Provider Emergency Medicine
DX: N18.6 End stage renal disease (principal); K74.60 Unspecified cirrhosis of liver; I42.9 Cardiomyopathy, unspecified; Z99.2 Dependence on renal dialysis; I25.10 Atherosclerotic heart disease of native coronary artery without angina pectoris; R74.01 Elevation of levels of liver transaminase levels; E78.00 Pure hypercholesterolemia, unspecified; I25.2 Old myocardial infarction; G47.33 Obstructive sleep apnea (adult) (pediatric); Z79.01 Long term (current) use of 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; Z86.16 Personal history of COVID-19; Z86.73 Personal history of transient ischemic attack (TIA), and cerebral infarction without residual deficits; Z86.718 Personal history of other venous thrombosis and embolism; Z79.51 Long term (current) use of inhaled steroids; Z79.899 Other long term (current) drug therapy; Z95.0 Presence of cardiac pacemaker
CPT/HCPCS: 80048; 80076; 85025; 85610; 85730; 96374; 99283; A4216

== ENCOUNTER 2024-12-17 15:59 | Emergency (ER) | payer MEDICARE, OTHER, SELFPAY ==
[2024-12-17 16:00] VITALS: BP 116/59; PULSE 82; RESP 16; TEMP 36.8; O2SAT 100; BMI 27.2
[2024-12-17 18:25] VITALS: BP 104/82; PULSE 71; RESP 14; O2SAT 99
[2024-12-17 20:00] VITALS: BP 107/48; PULSE 88; RESP 16; O2SAT 100
--- NOTE | 2024-12-17 20:09 | EDS_ITS ---
HPI History of Present Illness Chief Complaint: Wound Check Informant: patient and family Narrative Narrative: 74-year-old male presenting to the emergency room after being referred here by nephrology. Family was seen last night and was evaluated by surgery for d ysfunction of the dialysis tunneled IJ catheter. Patient has a significant medical history that is outlined below taken from Dr. Abdullahi's history CHRISTIAN AMADOR, is a 74 M who presents to [facility] on direction from their dialysis center, for sending us after contacting them with a concern about possible leaking dialysis access. Patient presents with his who provides most of the history. She states that her 's been on hemodialysis since approximately 2020 when his progressive chronic kidney disease further deteriorated. Patient's notes that the renal dysfunction began with an initial insult related to use of amphotericin B for a remote fungemia. They report that Dr. Ford Wen performed patient's initial tunneled dialysis catheter and then repeated the procedure in March 2023 after portion of the catheter cracked and could not be repaired. Mrs. Amador further adds that her was deemed a poor candidate for AV fistula given a history of extremity clots and a previously?placed left?sided pacer that had to be relocated to the right side on the account of a bacteremia. She goes on to say that he also was disqualified from consideration for peritoneal dialysis on the basis of a history of a complicated hematoma evacuation from a rectus sheath hematoma and subsequent MRSA infection years ago that led to a 3-month hospital stay with the [facility]. Therefore, given her 's poor health and these disqualification's they have continued on hemodialysis at home via the tunneled right IJ hemodialysis catheter. She details that earlier today she had initiated dialysis and was approximately 1 hour in when she believes she noticed some blood coming from a tear in a rubber covering of the access port. After noting this tear she contacted the dialysis center and was advised as above. (1) Problem with dialysis access: PLAN: Patient is a 74-year-old male with history of ESRD related to adverse effect from medications on home hemodialysis via a tunneled right internal jugular hemodialysis catheter who presents on direction from his dialysis center because of concerns for a tear in the catheter. However, with patient's 's history and direct exam of the catheter the tear is in a outer rubber sheath that appears to serve a protective coupling function to the underlying tubing and port. There appeared to be no disruption of the tubing. In order to further confirm the integrity of the catheter I sterilely accessed the venous port first aspirating a small volume of blood without observing any extravasation from the catheter tubing. I then locked the catheter with 2 mL of injectable heparin concentration 1000 units/mL. A sterile chlorhexidine was placed over the port. Patient's spouse expressed relief and appreciation for this demonstration. I have asked emergency medicine to provide referral to vascular surgery as patient will need to be considered for an atypical dialysis access and may require a nonanatomic AV graft. Lastly, patient's spouse was advised to try to reinforce the minute tear with a small amount of electrical tape until which time the catheter can hopefully be discontinued. Today the states he was doing dialysis when she noticed a very small amount of blood. The last 30 minutes the spot of blood turned into about a 2 inch diameter [place]. She spoke with nephrology/dialysis center and was referred back to the emergency room being told that they should not use the tube until it is changed at a risk of infection. [facility] Medical History Pleural effusion associated with hepatic disorder ABLA (acute blood loss anemia) Anemia requiring transfusions Atherosclerotic heart disease of [place] coronary artery without angina pectoris Cirrhosis HLD (hyperlipidemia) Other specified cardiac dysrhythmias ESRD (end stage renal disease) on dialysis CKD stage G5/A1, GFR <15 and albumin creatinine ratio <30 mg/g Sepsis Vitamin D insufficiency Polyneuropathy Mild cognitive impairment Epilepsy group home (current) use of 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 History of rheumatic fever as a child COVID-19 Infectious endocarditis Non-ST elevation (NSTEMI) myocardial infarction CAD (coronary artery disease) History of pacemaker Coagulopathy Airway intubation performed without difficulty Cardiopulmonary arrest with successful resuscitation Hypothyroidism (acquired) Abnormal results of thyroid function studies Hyperthyroidism MIA (obstructive sleep apnea) Dyspnea Non-rheumatic mitral regurgitation Non-rheumatic mitral valve stenosis Iron deficiency History of diffuse large B-cell lymphoma Anemia in chronic kidney disease Pure hypercholesterolemia Biventricular cardiac pacemaker in situ (~05/26/16) Encounter for long-term (current) use of high-risk medication 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, 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 TIA (transient ischemic attack) (~11/19/15) History of DVT (deep vein thrombosis) Gout Paroxysmal ventricular tachycardia Atrial flutter Cardiomyopathy in disease classified elsewhere MRSA (methicillin resistant Staphylococcus aureus) infection History of non-Hodgkin's lymphoma Endocarditis due to Staphylococcus Benign essential hypertension Home Medications ?Medication ?Instructions ?Recorded ?Last Taken ?Type levothyroxine 75 mcg tablet 75 mcg PO DAILY thyroid 08/24/21 12/16/24 History vitamin B complex-vitamin C-folic 1 tab PO DAILY vitamin 01/10/22 12/16/24 History acid 0.8 mg tablet (Nephro-Baltazar) doxycycline hyclate 100 mg tablet 100 mg PO BID infection 11/27/22 12/16/24 History fluconazole 200 mg tablet 200 mg PO DAILY 06/11/23 12/16/24 History sucroferric oxyhydroxide 500 mg 1,000 mg PO QPC 12/12/23 12/15/24 History chewable tablet (Velphoro) albuterol sulfate 90 mcg/actuation 2 puff inhalation Q4-6H PRN 03/19/24 Unknown History aerosol inhaler shortness of breath or wheezing alprazolam 1 mg tablet (Xanax) 1 mg PO QHS Sleep 05/28/24 12/15/24 History cyclobenzaprine 10 mg tablet 10 mg PO BID 05/28/24 12/16/24 History midodrine 10 mg tablet 40 mg PO DAILY 05/28/24 12/16/24 History pantoprazole 40 mg tablet,delayed 40 mg PO QAM #90 tabs 12/01/24 12/16/24 Rx release cinacalcet 30 mg tablet 30 mg PO MOWEFR 12/16/24 Unknown History lactulose 10 gram/15 mL oral 15 ml PO BID 12/16/24 Unknown History solution (Constulose) warfarin 1 mg tablet (Jantoven) 1 mg PO MOTU 12/16/24 12/16/24 History warfarin 2 mg tablet 2 mg PO SUTUWETHFR 12/16/24 12/15/24 History amoxicillin 500 mg capsule 2,000 mg PO DAILY PRN DENTAL 12/17/24 Unknown History TREATMENT triamcinolone acetonide 0.1 % 1 applic topical BID PRN SKIN 12/17/24 Unknown History 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 Allergy/AdvReac Type Severity Reaction Status Date / Time No Known Allergies Allergy Verified 12/17/24 16:01 Family History Father CAD (coronary artery disease) CABG Brother CAD (coronary artery disease) CABG Mother Diabetes Sister Breast cancer Diabetes Sister Cancer breast Diabetes Surgical History History of mechanical aortic valve replacement (~08/24/03) History of heart valve replacement with mechanical valve History of atrioventricular chiquita ablation History of heart valve replacement with mechanical valve History of evacuation of hematoma History of cholecystectomy History of appendectomy dual chamber pacemaker implantation (~10/2010) History of aortic valve replacement (~08/2003) History of mitral valve repair (~08/24/03) History of mechanical aortic valve replacement (~1986) Social History household members: spouse housing: house current occupational status: retired current occupational exposures/hazards: No history of recent travel: No Smoking Status: Never smoker alcohol intake: never substance use type: does not use caffeine: No what type of physical activity do you participate in: weight training and other details: Nustep frequency: 3-4 times per week duration: 45-60 minutes/day seatbelt use: always do you feel safe at home: Yes ROS ROS ED Constitutional Constitutional ED: Denies chills or weight loss Eyes Eyes: Denies change in vision or diplopia ENT ENT ED: Denies ear pain, rhinorrhea or sore throat Cardiovascular Cardiovascular: Denies chest pain, orthopnea, palpitations or racing heartbeat Respiratory/Chest Respiratory/Chest: Denies cough, dyspnea or orthopnea Gastrointestinal Gastrointestinal: Denies abdominal pain, diarrhea, nausea or vomiting Genitourinary Genitourinary ED: Denies dysuria, hematuria or urinary frequency Musculoskeletal Musculoskeletal: Denies arthralgias or myalgias Integumentary Denies abscess or rash Neurologic Neurologic: Denies headache(s) or weakness Psychiatric Psychiatric: Denies anxiety, depression, suicidal ideation or suicidal thoughts Endocrine Endocrinology: Denies polydipsia, polyphagia or polyuria Allergic/Immunologic Allergic/Immunologic ED: Denies mouth swelling, tongue swelling or urticaria EXAM Physical Exam Const Vital Signs: 12/17/24 16:00 12/17/24 18:25 12/17/24 20:00 Temperature 98.2 F Temperature Source Oral Pulse Rate 82 71 88 Respiratory Rate 16 14 16 Blood Pressure 116/59 L 104/82 H 107/48 L Blood Pressure Mean 78 89 67 Pulse Ox 100 99 100 Oxygen Delivery Method Room Air Room Air Room Air 12/17/24 22:00 Temperature Temperature Source Pulse Rate 70 Respiratory Rate 17 Blood Pressure 97/48 L Blood Pressure Mean 64 Pulse Ox 99 Oxygen Delivery Method Room Air Positive well nourished and well developed General Appearance ED: well developed HEENT Reports normocephalic, head/scalp atraumatic and moist mucous membranes Eyes PERRL and EOMs intact bilaterally Neck no lymphadenopathy, supple and no JVD Chest Wall inspection of chest normal and palpation of chest normal Chest Narrative: Dialysis port site clean dry intact Resp normal respiratory effort and clear to auscultation bilaterally Cardio regular rate, regular rhythm and no murmurs GI normal to inspection, nondistended, normoactive bowel sounds and non-tender Palpation: soft Back/Spine no CVA tenderness and normal ROM Extremity normal to inspection General Extremety ED: Negative for edema General Extremity: Negative for edema Neuro oriented x3 and CN's II-XII intact bilaterally Sensorium / Orientation: alert Motor Exam: strength 5/5 throughout Psych mental status grossly normal Mood & Affect: Negative for depressed or tearful Skin no rashes or lesions noted and no wounds MDM MDM MDM Narrative Medical decision making narrative: I spoke with our surgeon Dr. Smyth. We do not have a repair kit at this time and is unclear if we are going to get 1. When the patient had a procedure back in 2022 is because there is an inability to obtain a repair kit. Patient did get his dialysis treatment today but will eventually need 1 in the next several days. I asked surgery about Dr. Lemus here but they state that he deferred to general surgery for this. I did not have a clear plan for this individual. It is highly probable he may need to go to another institution which she is done when he saw [facility] in the past. I reach out to [facility] and waiting a phone call back. In the interim obtain baseline labs shows a white count of 9.3 hemoglobin 11.4 platelet count of 218 INR is 2 creatinine 6.65 potassium 5.8 sodium 129 BUN of 42 glucose 86 magnesium 2.2 phosphorus 3.6. History & Record Review Discussion w/independent historian: Patient and Significant other Lab Data Attestation: I reviewed the patient's lab results. Labs: Laboratory Results - last 24 hr 12/17/24 20:56 WBC 9.3 RBC 3.27 L Hgb 11.4 L Hct 34.6 L MCV 105.8 H MCH 34.9 H MCHC 32.9 RDW Std Deviation 69.6 H RDW Coeff of Jennifer 17.7 H Plt Count 218 MPV 9.7 Immature Gran % (Auto) 0.500 Neut % (Auto) 63.1 Lymph % (Auto) 19.3 [place] % (Auto) 11.0 H Eos % (Auto) 5.3 H Baso % (Auto) 0.8 Absolute Neuts (auto) 5.8 Absolute Lymphs (auto) 1.79 Nucleated RBC % 0 Differential Comment SCANNED Platelet Estimate ADEQUATE Anisocytosis 2+ PT 22.8 H INR 2.0 Sodium 129 L Potassium 5.8 H Chloride 94 L Carbon Dioxide 24.0 Anion Gap 11 BUN 42 H Creatinine 6.65 H Estim Creat Clear Calc 8.97 Est GFR (MDRD) Af Amer 11 L Est GFR (MDRD) Non-Af 9 L BUN/Creatinine Ratio 6.3 L Glucose 86 Calcium 8.6 Phosphorus 3.6 Magnesium 2.2 Discharge Plan Triage Chief Complaint: Wound Check ED Provider: Raúl Gomes Dx/Rx/DC Orders Prescriptions: No Action alprazolam [Xanax] 1 mg tablet 1 mg PO QHS doxycycline hyclate 100 mg tablet 100 mg PO BID fluconazole 200 mg tablet 200 mg PO DAILY midodrine 10 mg tablet 40 mg PO DAILY Rx Instructions: TAKE UP TO 4 TABS ONLY ON DIALYSIS DAYS Velphoro 500 mg tablet,chewable 1,000 mg PO QPC Rx Instructions: WITH EACH MEAL cyclobenzaprine 10 mg tablet 10 mg PO BID albuterol sulfate 90 mcg/actuation HFA aerosol inhaler 2 puff inhalation Q4-6H PRN (Reason: shortness of breath or wheezing) Patient Comments: pt hasnt taken in over year levothyroxine 75 mcg tablet 75 mcg PO DAILY Nephro-Baltazar 0.8 mg tablet 1 tab PO DAILY lactulose [Constulose] 10 gram/15 mL solution 15 ml PO BID Patient Comments: PT ADVISED TO TITRATE AND SEE WHAT WORKS. warfarin [Jantoven] 1 mg tablet 1 mg PO MOTU Patient Comments: BASED ON INR warfarin 2 mg tablet 2 mg PO SUTUWETHFR Protocol: Dose Management Condition: Sunday Dose/Route: 2 mg Instruction: 1 x 2 mg tablet Condition: Sunday Dose/Route: 1 mg Instruction: 0.5 x 2 mg tablets Condition: Sunday Dose/Route: 1 mg Instruction: 0.5 x 2 mg tablets Condition: Sunday Dose/Route: 2 mg Instruction: 1 x 2 mg tablet Condition: Dose/Route: 2 mg Instruction: 1 x 2 mg tablet Condition: Sunday Dose/Route: 2 mg Instruction: 1 x 2 mg tablet Condition: Sunday Dose/Route: 2 mg Instruction: 1 x 2 mg tablet Protocol Text: Adjustment Start Date: Sunday12/16/24 INR Value: 2.5 INR Date: 12/15/24 Recheck Date: 12/23/24 Patient Comments: BASED ON INR cinacalcet 30 mg tablet 30 mg PO Patient Comments: TAKE 1 TABLET BY MOUTH THREE DAYS (TIMES) A WEEK amoxicillin 500 mg capsule 2,000 mg PO DAILY PRN (Reason: DENTAL TREATMENT) Rx Instructions: TAKE 1 HOUR PRIOR TO TREATMENT triamcinolone acetonide 0.1 % lotion 1 applic topical BID PRN (Reason: SKIN 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) pantoprazole 40 mg tablet,delayed release (DR/EC) 40 mg PO QAM Qty: 90 3RF Primary Care Provider: David Menjivar Referrals: David Menjivar DO [Primary Care Provider] - Print Language: Bahamian
[2024-12-17 21:18] LABS: Absolute Lymphocyte Count 1.79 X10^3/uL (0.83-4.51); Absolute Neutrophil Count 5.8 X10^3/uL (2.0-7.7); Basophil# 0.07 X10^3/uL; Basophil% 0.8 % (0-1); Eosinophil# 0.49 X10^3/uL; Eosinophils% 5.3 % (0-5); Hematocrit 34.6 % (40-54); Hemoglobin 11.4 g/dL (13.0-16.5); Lymphocyte # 1.79 X10^3/ul (0.83-4.51); Lymphocyte % 19.3 % (19-41); Mean Corp Hgb Conc 32.9 g/dL (32-36); Mean Corpuscular Hgb 34.9 pg (27.0-32.0); Mean Corpuscular Volume 105.8 fL (80-94); Mean Platelet Vol. 9.7 fl (6.2-12.0); Monocyte# 1.02 X10^3/uL; NRBC Flagged by Analyzer 0 % (0-5); Neutrophil # 5.84 X10^3/uL (2.7-7.7); Neutrophil % 63.1 % (47-70); POSITIVE MORPHOLOGY YES; Platelet Count 218 K/mm3 (150-450); RBC Distribution Width CV 17.7 % (11.6-14.6); RBC Distribution Width SD 69.6 fl (35.1-43.9); Red Blood Count 3.27 M/mm3 (4.6-6.2); White Blood Count 9.3 K/mm3 (4.4-11.0)
[2024-12-17 21:32] LABS: Anisocytosis 2+; Differential Comment SCANNED; Platelet Estimate ADEQUATE (ADEQ)
[2024-12-17 21:33] LABS: Prothrombin Time (Protime)PT. 22.8 SECONDS (11.7-14.9)
[2024-12-17 21:41] LABS: Anion Gap 11 (5-15); BUN 42 mg/dL (7-18); BUN/Creat Ratio 6.3 RATIO (10-20); Calcium,Total 8.6 mg/dL (8.5-10.1); Chloride 94 mmol/L (98-107); Creatinine, Serum 6.65 mg/dL (0.70-1.30); EST Glomerular Filtration Rate 9 mL/min (>60); Est Glom Filt Rate - Afr Amer 11 mL/min (>60); Estimated Creatinine Clearance 8.97 ml/min; Glucose 86 mg/dL (74-106); Magnesium 2.2 mg/dL (1.6-2.6); Phosphorus 3.6 mg/dL (2.5-4.9); Potassium 5.8 mmol/L (3.5-5.1); Sodium Level 129 mmol/L (136-145)
[2024-12-17 22:00] VITALS: BP 97/48; PULSE 70; RESP 17; O2SAT 99
[2024-12-18] VITALS (12 sets, daily range): BP systolic 106–121; BP diastolic 35–50; PULSE 67–80; RESP 12–18; TEMP 36.8; O2SAT 90–99
--- NOTE | 2024-12-18 09:27 | ED.RN ---
CALLED PHYSICIANS @ [id number] THEY ARE ABOUT AN HR OUT. NEW ETA IS 1010
== END 2024-12-18 10:35 | disposition short-term general hospital (02) ==
PROVIDERS: Emergency Provider Emergency Medicine; PCP Family Medicine; Visit Provider Emergency Medicine
DX: T82.898A Other specified complication of vascular prosthetic devices, implants and grafts, initial encounter (principal); N18.6 End stage renal disease; I12.0 Hypertensive chronic kidney disease with stage 5 chronic kidney disease or end stage renal disease; X58.XXXA Exposure to other specified factors, initial encounter; Z99.2 Dependence on renal dialysis; E78.00 Pure hypercholesterolemia, unspecified; I25.10 Atherosclerotic heart disease of native coronary artery without angina pectoris; Z95.2 Presence of prosthetic heart valve; Z79.01 Long term (current) use of 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; Z79.899 Other long term (current) drug therapy; Z86.16 Personal history of COVID-19
CPT/HCPCS: 80048; 83735; 84100; 85025; 85610; 99283; A4216

== ENCOUNTER → 2024-12-31 | Outpatient (CLI) | payer MEDICARE, OTHER, SELFPAY ==
--- NOTE | 2024-12-31 08:47 | US_ITS ---
EXAM: US Abdomen Limited, Right Upper Quadrant CLINICAL INDICATION: TECHNIQUE: Real-time ultrasound of the right upper quadrant with image documentation. COMPARISON: No relevant prior studies available. FINDINGS: LIVER: Hepatopetal blood flow in main portal vein. Liver measures 16.6 cm. No intrahepatic bile duct dilation. GALLBLADDER: Cholecystectomy. COMMON BILE DUCT: Unremarkable as visualized. No stones. No dilation. Common bile duct measures 0.6 cm in diameter. PANCREAS: Unremarkable as visualized. RIGHT KIDNEY: Right renal cyst measuring 4.2 x 3.9 x 3.7 cm. No stones. No hydronephrosis. The right kidney measures 10.1 x 5.2 x 4.3 cm. OTHER FINDINGS: Coarse echotexture. US/Abdomen Limited IMPRESSION: Simple right renal cyst. Coarse echotexture of the liver could be underlying hepatocellular disease. No focal mass. Reading Location: [facility]
== END | disposition home or self-care (01) ==
LOC: US 08:46
PROVIDERS: PCP Family Medicine
DX: K74.69 Other cirrhosis of liver (principal)
CPT/HCPCS: 76705

== ENCOUNTER 2025-02-12 22:15 | Emergency (ER) | payer MEDICARE, OTHER, SELFPAY ==
[2025-02-12 22:16] VITALS: BP 96/41; PULSE 88; RESP 16; TEMP 36.4; O2SAT 95
[2025-02-12 22:19] VITALS: BMI 27.2
--- NOTE | 2025-02-12 23:02 | CT_ITS ---
PROCEDURE: CHEST WITHOUT CONTRAST 02/12/2025 REASON FOR EXAM: 74-year-old male, history of recent pneumonia. TECHNIQUE: Chest CT without contrast. Coronal and Sagittal reconstruction series were provided. One or more dose reduction techniques were used (e.g., Automated exposure control, adjustment of the mA and/or kV according to patient size, use of iterative reconstruction technique RADIATION DOSE SUMMARY: Not recorded. COMPARISON: Chest radiograph earlier same day. FINDINGS: Hardware: Right chest wall pacemaker. Right IJ central venous catheter with tip terminating in the right atrium. Lymph nodes: Visualization is limited without the use of IV contrast. Prominent bilateral lower cervical, mediastinal and hilar nodes. No axillary lymphadenopathy. Heart and Vasculature: Mild cardiomegaly without pericardial effusion. Prior median sternotomy and CABG with severe coronary artery calcification of the [place] arteries. Prior aortic valve replacement. Dilation of the main pulmonary artery measuring 3.8 cm. Lungs and Airways: The central airways are patent. Reticulonodular and ground- glass opacities within the right middle and left upper and lower lobes. Additional small ground-glass nodules throughout the bilateral lungs. Moderate-sized left pleural fluid collection measuring an average Hounsfield unit of 18. No pneumothorax. Bones: Lower cervical and thoracic spondylosis. Surgical clip or marker within the lamina of the right T1 vertebral body. CT/Chest without Contrast IMPRESSION: 1. Moderate-sized left pleural fluid collection, most compatible with pleural e mpyema, however visualization is limited without the use of IV contrast. Diagnostic thoracentesis could be performed if clinica lly indicated for further evaluation. 2. Reticulonodular and ground-glass opacities throughout the bilateral lungs, c ompatible with reported history of pneumonia. Additional considerations include superimposed infection, inflammatory pneumoni tis or, less likely malignancy or pulmonary manifestation of lymphoma. 3. Prominent lower cervical, mediastinal and hilar nodes, of indeterminate sign ificance. Correlation with prior imaging recommended. Reading Location: [id number]
--- NOTE | 2025-02-12 23:02 | EKG12_ITS ---
Test Reason : GI BLEED Blood Pressure : */* mmHG Vent. Rate : 73 BPM Atrial Rate : 73 BPM P-R Int : * ms QRS Dur : 154 ms QT Int : 514 ms P-R-T Axes : * 214 111 degrees QTcB Int : 566 ms Ventricular-paced rhythm Biventricular pacemaker detected Abnormal ECG Confirmed by ALLEN NIX, AMINA ([id number]), research editor SIMON JARA ([id number]) on 02/13/2025 8:26:47 AM Referred By: ABI Confirmed By: AMINA VILLA MD
--- NOTE | 2025-02-12 23:02 | CT_ITS ---
PROCEDURE: CTA ABD/PELVIS W/WO CONTRAST 02/12/2025 REASON FOR EXAM: 74-year-old male, rectal bleeding. Currently on nighttime dialysis at home. TECHNIQUE: CTA imaging of the abdomen and pelvis with intravenous contrast. Coronal and Sagittal reconstruction series were provided. 3D, 3D post processing, 3D reconstructions, Maximum intensity projection (MIPs) Volume rendering and Shaded surface rendering was provided. CONTRAST: Isovue-300 VOLUME: 100mL One or more dose reduction techniques were used (e.g., Automated exposure control, adjustment of the mA and/or kV according to patient size, use of iterative reconstruction technique). RADIATION DOSE SUMMARY: CTDlvol: 75 mGy DLP: 1500 mGycm COMPARISON: Abdominal ultrasound 12/31/2024. FINDINGS: Aorta: Mild ectasia of the abdominal aorta with severe mixed calcified and noncalcified plaque. No aneurysm. Iliac Arteries: The bilateral common iliac, internal and external iliac arteries are patent with moderate mixed atherosclerotic plaque. No aneurysmal dilation. Prior coil embolization of the right inferior epigastric artery. Celiac: Moderate stenosis of the celiac trunk at its origin due to mixed calcified and noncalcified plaque. Standard celiac trunk anatomy with mild mixed calcific plaque throughout the distal vessels. SMA: Moderate stenosis of the SMA origin and just distal to its origin and proximally 2 cm due to mixed calcified and noncalcified plaque. ANNA : Patent. Single bilateral renal arteries are patent with moderate stenosis at their origins. Other Findings: Liver: Normal in size without arterially enhancing mass. No biliary ductal dilation. Prior cholecystectomy. Spleen: Prior infarct along the superior aspect of the spleen with dystrophic calcifications. Adrenals: Multiple small left adrenal nodules. Unremarkable right adrenal gland. Kidneys: Severe bilateral renal cortical atrophy. Bilateral renal cysts and additional hypodensities. Bilateral calcifications, likely vascular. No hydronephrosis. Bladder: Decompressed. Prostate: Marked prostatic enlargement. Bowels: The bowel loops are normal in caliber. No ascites or pneumoperitoneum. No inflammatory mass in the expected region of the appendix. Moderate distal diverticulosis. Lymph nodes: Prominent left retroperitoneal nodes, of indeterminate significance. Bones/soft tissues: Large cutaneous defect along the ventral abdominal wall, compatible with prior abdominal surgery. Thoracolumbar spondylosis. Moderate chronic compression fracture deformity of the L3 vertebral body. Surgical clips within the right inguinal region. CT/CTA Abd/Pelvis W/WO Contrast IMPRESSION: 1. Patent aortoiliac vessels with moderate mixed atherosclerotic plaque as desc ribed. Visualization for acute GI bleed is limited without venous or delayed phase imaging. 2. Multiple small left adrenal nodules and prominent left retroperitoneal nodes , of indeterminate significance. Correlation with prior abdominal imaging recommended if available. If not available, follow-up imaging is recommended. 3. Markedly enlarged prostate. Correlation with PSA recommended. Reading Location: [id number]
--- NOTE | 2025-02-12 23:05 | EX.ED.DYSGE1 ---
HPI History of Present Illness Chief Complaint: GI Bleed Narrative Narrative: The patient is a 74-year-old male with past medical history of end-stage renal disease on dialysis 4 days a week, CAD, Heart valve on warfarin, MIA, cirrhosis on lactulose, TIA, atrial flutter who presents to the emergency department with concern of bright red blood per rectum and generalized weakness not feeling well. He states he is also was diagnosed with pneumonia recently and was started on Levaquin on Sunday this past week however he still coughing up significant amount of phlegm. Patient notes that for the last week he has had off-and-on bright red blood per rectum. He states that his stools have been always dark because he is on a medication with high iron supplementation. 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 History of rheumatic fever as a child COVID-19 Infectious endocarditis Non-ST elevation (NSTEMI) myocardial infarction CAD (coronary artery disease) History of pacemaker Coagulopathy Airway intubation performed without difficulty Cardiopulmonary arrest with successful resuscitation Hypothyroidism (acquired) Abnormal results of thyroid function studies Hyperthyroidism MIA (obstructive sleep apnea) Dyspnea Non-rheumatic mitral regurgitation Non-rheumatic mitral valve stenosis Iron deficiency History of diffuse large B-cell lymphoma Anemia in chronic kidney disease Pure hypercholesterolemia Biventricular cardiac pacemaker in situ (~05/26/16) Encounter for long-term (current) use of high-risk medication 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, 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 TIA (transient ischemic attack) (~11/19/15) History of DVT (deep vein thrombosis) Gout Paroxysmal ventricular tachycardia Atrial flutter Cardiomyopathy in disease classified elsewhere MRSA (methicillin resistant Staphylococcus aureus) infection History of non-Hodgkin's lymphoma Endocarditis due to Staphylococcus Benign essential hypertension Home Medications ?Medication ?Instructions ?Recorded ?Last Taken ?Type levothyroxine 75 mcg tablet 75 mcg PO DAILY thyroid 08/24/21 12/16/24 History vitamin B complex-vitamin C-folic 1 tab PO DAILY vitamin 01/10/22 12/16/24 History acid 0.8 mg tablet (Nephro-Baltazar) doxycycline hyclate 100 mg tablet 100 mg PO BID infection 11/27/22 12/16/24 History fluconazole 200 mg tablet 200 mg PO DAILY 06/11/23 12/16/24 History sucroferric oxyhydroxide 500 mg 1,000 mg PO QPC 12/12/23 12/15/24 History chewable tablet (Velphoro) albuterol sulfate 90 mcg/actuation 2 puff inhalation Q4-6H PRN 03/19/24 Unknown History aerosol inhaler shortness of breath or wheezing alprazolam 1 mg tablet (Xanax) 1 mg PO QHS Sleep 05/28/24 12/15/24 History cyclobenzaprine 10 mg tablet 10 mg PO BID 05/28/24 12/16/24 History midodrine 10 mg tablet 40 mg PO DAILY 05/28/24 12/16/24 History pantoprazole 40 mg tablet,delayed 40 mg PO QAM #90 tabs 12/01/24 12/16/24 Rx release warfarin 1 mg tablet (Jantoven) 1 mg PO .satsun 12/16/24 12/16/24 History warfarin 2 mg tablet 2 mg PO .-sun12/16/24 12/15/24 History amoxicillin 500 mg capsule 2,000 mg PO DAILY PRN DENTAL 12/17/24 Unknown History TREATMENT triamcinolone acetonide 0.1 % 1 applic topical BID PRN SKIN 12/17/24 Unknown History 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 cinacalcet 30 mg tablet 30 mg PO MOTH 01/28/25 Unknown History lactulose 10 gram/15 mL oral 20 ml PO QDAY 01/28/25 Unknown History solution (Constulose) Allergy/AdvReac Type Severity Reaction Status Date / Time No Known Allergies Allergy Verified 02/12/25 22:16 Family History Father CAD (coronary artery disease) CABG Brother CAD (coronary artery disease) CABG Mother Diabetes Sister Breast cancer Diabetes Sister Cancer breast Diabetes Surgical History S/P arteriovenous (AV) fistula repair History of mechanical aortic valve replacement (~08/24/03) History of heart valve replacement with mechanical valve History of atrioventricular chiquita ablation History of heart valve replacement with mechanical valve History of evacuation of hematoma History of cholecystectomy History of appendectomy dual chamber pacemaker implantation (~10/2010) History of aortic valve replacement (~08/2003) History of mitral valve repair (~08/24/03) History of mechanical aortic valve replacement (~1986) Social History household members: spouse housing: house current occupational status: retired current occupational exposures/hazards: No history of recent travel: No Smoking Status: Never smoker alcohol intake: never substance use type: does not use caffeine: No what type of physical activity do you participate in: weight training and other details: Nustep frequency: 3-4 times per week duration: 45-60 minutes/day seatbelt use: always do you feel safe at home: Yes ROS ROS ED ROS Narrative Constitutional: Denies fevers, chills, headaches, lightness, dizziness Eyes: Denies change in vision double vision blurry vision Cardiovascular: Denies chest pain or palpitation Respiratory: Complains of chronic shortness of breath and coughing with sputum production as noted above complains of Abdomen: Complains of bright red blood per rectum with bowel movements as noted above denies any vomiting : Denies urinary symptoms Neurological: Denies numbness, weakness, tingling Musculoskeletal: Denies back pain Skin: Denies any rashes or lesions EXAM Physical Exam Narrative Exam Narrative: General: Patient was lying in bed rest comfortably did not appear to be in acute distress Head: Atraumatic, normocephalic Eyes: PERRL bilaterally, EOMI bilateral, no conjunctival injection noted Neck: Soft, supple, trachea midline Cardiovascular: Regular rate and rhythm no murmurs gallops rubs noted Respiratory: Clear to auscultation bilaterally Abdomen: Soft, nondistended, no tenderness palpation, patient has old surgical scar in the middle of his abdomen that they state was from a previous hematoma that he developed after his rectus sheath ripped Rectal exam: No external hemorrhoids noted no bright red blood per rectum noted, patient did have dark stool noted Extremities: +4/5 strength noted in the bilateral per lower extremity, radial pulse +2/4 in about upper extremities Neurological: Patient follow commands knew that he was at [facility] year is 2024 Skin: Warm, dry, intact, no concern for infection surrounding his dialysis port Const Vital Signs: 02/12/25 22:16 02/12/25 23:08 02/13/25 00:03 Temperature 97.5 F L 98.0 F Temperature Source Oral Oral Pulse Rate 88 70 Respiratory Rate 16 24 H Blood Pressure 96/41 L 101/46 L Blood Pressure Mean 59 64 Pulse Ox 95 100 Oxygen Delivery Method Room Air Nasal Cannula Nasal Cannula Oxygen Flow Rate (L/min) 2 2 02/13/25 00:15 02/13/25 01:00 02/13/25 02:00 Temperature 98.0 F 98.0 F 98 F Temperature Source Oral Oral Oral Pulse Rate 70 70 72 Respiratory Rate 24 H 24 H 23 H Blood Pressure 99/41 L 99/41 L 103/39 L Blood Pressure Mean 60 60 60 Pulse Ox 100 100 100 Oxygen Delivery Method Nasal Cannula Nasal Cannula Room Air Oxygen Flow Rate (L/min) 2 2 02/13/25 04:00 02/13/25 05:30 Temperature 98.0 F Temperature Source Temporal Pulse Rate 74 70 Respiratory Rate 24 H 26 H Blood Pressure 97/43 L 103/50 L Blood Pressure Mean 61 67 Pulse Ox 100 96 Oxygen Delivery Method Nasal Cannula Nasal Cannula Oxygen Flow Rate (L/min) 2 2 MDM MDM MDM Narrative Medical decision making narrative: Patient is a 74-year-old male who presents to the emerged part with concern for pneumonia and rectal bleeding while on warfarin. On the differential diagnose includes Melamin to diverticulosis, diverticulitis, hemorrhoids, multifocal pneumonia. Once workup is obtained reviewed he will be reevaluated. Patient will not be given a 30 cc/kg bolus of IV fluids as there is concern for a hypervolemic state as he is due for dialysis. Patient's CBC was reviewed showed no evidence leukocytosis white blood count 7.9, hemoglobin was noted to be 8.1 his baseline is around 10-11 based on previous blood draws, plate count normal at 151. Patient's INR was 1.4, PT of 17.9, sodium normal 139, potassium normal 3.8, creatinine was elevated at 6.24 however he is on dialysis. Patient's lactic acid was elevated to 3, AST and ALT were 72 and 25 respectively. Patient's ammonia level normal at 27.3. Patient's CT chest was reviewed showed moderate size left pleural effusion most compatible with pleural empyema diagnostic thoracentesis recommended. Reticulonodular groundglass opacities throughout the bilateral lungs compatible with reported history of pneumonia also consider superimposed infection, inflammatory pneumonitis or less likely malignancy or pulmonary manifestation of lymphoma. Prominent lower cervical mediastinal hilar nodes of indeterminate significance. Given that we do not have cardiothoracic surgery as patient likely has an empyema we will discussed with [facility] for transfer as he has been to the facilities in the past. Patient was ordered vancomycin and Zosyn at 1 AM. Patient was given Protonix at 1:30 AM as his rectal exam was Hemoccult positive. Patient at bedside originally was refusing IV fluids as she was concerned that he will drowning in secretions from too much fluid and needing dialysis. After discussion with her she was agreeable to a liter of fluid. I discussed this plan with the patient and at bedside they are agreeable with this plan will reach out to [facility] for transfer. After several hours of waiting callback from physician the patient will ultimately be excepted and transferred down to [facility] by Dr. Weber. They were updated with the plan all question concerns answered. Lab Data Labs: Laboratory Results - last 24 hr 02/12/25 23:08 WBC 7.9 RBC 2.34 L Hgb 8.1 L Hct 25.0 L MCV 106.8 H MCH 34.6 H MCHC 32.4 RDW Std Deviation 71.6 H RDW Coeff of Jennifer 18.6 H Plt Count 151 MPV 10.4 Immature Gran % (Auto) 1.000 H Neut % (Auto) 74.5 H Lymph % (Auto) 13.1 L [place] % (Auto) 9.3 Eos % (Auto) 1.7 Baso % (Auto) 0.4 Absolute Neuts (auto) 5.9 Absolute Lymphs (auto) 1.03 Nucleated RBC % 0.3 Platelet Estimate ADEQUATE RBC Morphology N CHROM Hypochromasia RARE Anisocytosis 1+ Macrocytosis 1+ Ovalocytes RARE PT 17.9 H INR 1.4 APTT 66.1 H Sodium 139 Potassium 3.8 Chloride 94 L Carbon Dioxide 23.1 Anion Gap 21 H BUN 28 H Creatinine 6.24 H Estim Creat Clear Calc 9.56 L* Est GFR (MDRD) Non-Af 9 L BUN/Creatinine Ratio 4.4 L Glucose 97 Lactic Acid 3.0 H* Calcium 8.1 Total Bilirubin 0.59 AST 72 H ALT 25 Alkaline Phosphatase 361 H Total Protein 6.9 Albumin 3.4 Globulin 3.5 Albumin/Globulin Ratio 1.0 Radiography Diagnostic Testing: Clinical Impression(s) from Imaging Studies Abdomen/Pelvis CTA 02/12/25 23:02 IMPRESSION: 1. Patent aortoiliac vessels with moderate mixed atherosclerotic plaque as described. Visualization for acute GI bleed is limited without venous or delayed phase imaging. 2. Multiple small left adrenal nodules and prominent left retroperitoneal nodes, of indeterminate significance. Correlation with prior abdominal imaging recommended if available. If not available, follow-up imaging is recommended. 3. Markedly enlarged prostate. Correlation with PSA recommended. Reading Location: [facility] Chest CT 02/12/25 23:02 IMPRESSION: 1. Moderate-sized left pleural fluid collection, most compatible with pleural empyema, however visualization is limited without the use of IV contrast. Diagnostic thoracentesis could be performed if clinically indicated for further evaluation. 2. Reticulonodular and ground-glass opacities throughout the bilateral lungs, compatible with reported history of pneumonia. Additional considerations include superimposed infection, inflammatory pneumonitis or, less likely malignancy or pulmonary manifestation of lymphoma. 3. Prominent lower cervical, mediastinal and hilar nodes, of indeterminate significance. Correlation with prior imaging recommended. Reading Location: [facility] Discharge Plan Triage Chief Complaint: GI Bleed Other Complaint: Shortness of Breath ED Provider: Kaveh Hadley Dx/Rx/DC Orders Clinical Impression: Pleural effusion on left, Empyema lung, Pneumonia, Acute upper GI bleed, Generalized weakness Prescriptions: No Action alprazolam [Xanax] 1 mg tablet 1 mg PO QHS doxycycline hyclate 100 mg tablet 100 mg PO BID fluconazole 200 mg tablet 200 mg PO DAILY midodrine 10 mg tablet 40 mg PO DAILY Rx Instructions: TAKE UP TO 4 TABS ONLY ON DIALYSIS DAYS Velphoro 500 mg tablet,chewable 1,000 mg PO QPC Rx Instructions: WITH EACH MEAL cyclobenzaprine 10 mg tablet 10 mg PO BID albuterol sulfate 90 mcg/actuation HFA aerosol inhaler 2 puff inhalation Q4-6H PRN (Reason: shortness of breath or wheezing) Patient Comments: pt hasnt taken in over year levothyroxine 75 mcg tablet 75 mcg PO DAILY Nephro-Baltazar 0.8 mg tablet 1 tab PO DAILY warfarin [Jantoven] 1 mg tablet 1 mg PO .sun Protocol: Dose Management Condition: Sunday Dose/Route: 1 mg Instruction: 1 x 1 mg tablet Condition: Sunday Dose/Route: 2 mg Instruction: 1 x 2 mg tablet Condition: Sunday Dose/Route: 2 mg Instruction: 1 x 2 mg tablet Condition: Sunday Dose/Route: 2 mg Instruction: 1 x 2 mg tablet Condition: Dose/Route: 2 mg Instruction: 1 x 2 mg tablet Condition: Sunday Dose/Route: 2 mg Instruction: 1 x 2 mg tablet Condition: Sunday Dose/Route: 1 mg Instruction: 1 x 1 mg tablet Protocol Text: Adjustment Start Date: Sunday02/11/25 INR Value: 2.7 INR Date: 02/11/25 Patient Comments: BASED ON INR warfarin 2 mg tablet 2 mg PO . Protocol: Dose Management Condition: Sunday Dose/Route: 1 mg Instruction: 1 x 1 mg tablet Condition: Sunday Dose/Route: 2 mg Instruction: 1 x 2 mg tablet Condition: Sunday Dose/Route: 2 mg Instruction: 1 x 2 mg tablet Condition: Sunday Dose/Route: 2 mg Instruction: 1 x 2 mg tablet Condition: Dose/Route: 2 mg Instruction: 1 x 2 mg tablet Condition: Sunday Dose/Route: 2 mg Instruction: 1 x 2 mg tablet Condition: Sunday Dose/Route: 1 mg Instruction: 1 x 1 mg tablet Protocol Text: Adjustment Start Date: Sunday02/11/25 INR Value: 2.7 INR Date: 02/11/25 Patient Comments: BASED ON INR lactulose [Constulose] 10 gram/15 mL solution 20 ml PO QDAY cinacalcet 30 mg tablet 30 mg PO MOTH amoxicillin 500 mg capsule 2,000 mg PO DAILY PRN (Reason: DENTAL TREATMENT) Rx Instructions: TAKE 1 HOUR PRIOR TO TREATMENT triamcinolone acetonide 0.1 % lotion 1 applic topical BID PRN (Reason: SKIN 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) pantoprazole 40 mg tablet,delayed release (DR/EC) 40 mg PO QAM Qty: 90 3RF Primary Care Provider: David Menjivar Referrals: David Menjivar DO [Primary Care Provider] - Print Language: Serbian Disposition Disposition: DC/Tx to Another Type of [facility]
[2025-02-12 23:23] LABS: Absolute Lymphocyte Count 1.03 X10^3/uL (0.83-4.51); Absolute Neutrophil Count 5.9 X10^3/uL (2.0-7.7); Basophil# 0.03 X10^3/uL; Basophil% 0.4 % (0-1); Eosinophil# 0.13 X10^3/uL; Eosinophils% 1.7 % (0-5); Hemoglobin 8.1 g/dL (13.0-16.5); Lymphocyte # 1.03 X10^3/ul (0.83-4.51); Lymphocyte % 13.1 % (19-41); Mean Corp Hgb Conc 32.4 g/dL (32-36); Mean Corpuscular Hgb 34.6 pg (27.0-32.0); Mean Corpuscular Volume 106.8 fL (80-94); Mean Platelet Vol. 10.4 fl (6.2-12.0); Monocyte# 0.73 X10^3/uL; Monocyte% 9.3 % (0-10); NRBC Flagged by Analyzer 0.3 % (0-5); Neutrophil # 5.87 X10^3/uL (2.7-7.7); Neutrophil % 74.5 % (47-70); POSITIVE MORPHOLOGY YES; Platelet Count 151 K/mm3 (150-450); RBC Distribution Width CV 18.6 % (11.6-14.6); RBC Distribution Width SD 71.6 fl (35.1-43.9); Red Blood Count 2.34 M/mm3 (4.6-6.2); White Blood Count 7.9 K/mm3 (4.4-11.0)
[2025-02-12 23:33] LABS: International Normalized Ratio 1.4; Prothrombin Time (Protime)PT. 17.9 SECONDS (11.7-14.9)
[2025-02-12 23:34] LABS: Partial Thromboplast Time 66.1 Seconds (24.1-36.2)
[2025-02-12 23:46] LABS: Differential Indicated SCAN CRITERIA MET
[2025-02-12 23:47] LABS: Anisocytosis 1+; Hypochromasia RARE; Macrocytosis 1+; Ovalocyte RARE; Platelet Estimate ADEQUATE (ADEQ); Red Cell Morphology N CHROM NORMAL (NORM C&C)
[2025-02-13] VITALS (10 sets, daily range): BP systolic 92–103; BP diastolic 39–55; PULSE 70–74; RESP 16–26; TEMP 36.6–36.8; O2SAT 95–100
[2025-02-13 00:07] LABS: AST(SGOT) 72 U/L (<=37); Alanine Aminotransfer ALT/SGPT 25 U/L (<=46); Albumin, Serum 3.4 g/dL (3.4-4.8); Alkaline Phosphatase 361 U/L (40-129); Anion Gap 21 (5-15); BUN 28 mg/dL (4-19); BUN/Creat Ratio 4.4 RATIO (10-20); Calcium,Total 8.1 mg/dL (7.6-11.0); Carbon Dioxide 23.1 mmol/L (21.0-32.0); Chloride 94 mmol/L (98-108); Creatinine, Serum 6.24 mg/dL (0.70-1.20); EST Glomerular Filtration Rate 9 (>60); Estimated Creatinine Clearance 9.56 ml/min (50-250); Globulin 3.5 g/dL (2.2-4.2); Glucose 97 mg/dL (70-99); Potassium 3.8 mmol/L (3.3-5.1); Protein, Total 6.9 g/dL (5.9-8.4); Sodium Level 139 mmol/L (133-145); Total Bilirubin 0.59 mg/dL (0.00-1.30)
[2025-02-13] MEDS: Piperacil/Tazobactam 4.5 GM in 0.9% Normal Saline (100mL MB+) 100 ML IV (01:19)
[2025-02-13] MEDS: 0.9% Normal Saline (1000mL) 1,000 ML 999 ML IV (01:38)
[2025-02-13] MEDS: Pantoprazole Sodium 40 MG in 0.9% Normal Saline (100mL MB+) 100 ML 330 MG IV (01:57)
[2025-02-13] MEDS: Vancomycin HCl 1,250 MG in 0.9% Normal Saline (250mL Bag) 250 ML 167 MG IV (02:36)
--- NOTE | 2025-02-13 02:39 | ED.RN ---
Pt's okay with one liter IV normal saline--infusing slow.Pt is a dialysis pt and fear of fluid overload.
--- NOTE | 2025-02-13 05:47 | ED.RN ---
Pt's permitted one liter of fluid and antibiotics and protonix,but did not want him to have more fluids---afraid of fluid overload. aware of 's request.
--- NOTE | 2025-02-13 05:57 | PCA ---
PT ACCEPTED [facility] [address] [phone] ETA 2-3 HRS
--- NOTE | 2025-02-13 06:18 | ED.RN ---
Pt's made aware of the $1000 upfront fee to pay for transportation to [facility]. Pt's said she was fine with that because she wants him to go to [facility]. made aware that pt only got the one liter of Normal Saline. Pt's was stated,Fine.Good.
--- NOTE | 2025-02-13 08:24 | ED.RN ---
updated family and patient on transporting squad ETA
== END 2025-02-13 08:53 | disposition other institution (70) ==
PROVIDERS: Emergency Provider Emergency Medicine; PCP Family Medicine; Visit Provider Emergency Medicine
DX: J86.9 Pyothorax without fistula (principal); I12.0 Hypertensive chronic kidney disease with stage 5 chronic kidney disease or end stage renal disease; N18.6 End stage renal disease; K74.60 Unspecified cirrhosis of liver; J90 Pleural effusion, not elsewhere classified; K62.5 Hemorrhage of anus and rectum; J18.9 Pneumonia, unspecified organism; I25.10 Atherosclerotic heart disease of native coronary artery without angina pectoris; I25.2 Old myocardial infarction; Z99.2 Dependence on renal dialysis; E78.00 Pure hypercholesterolemia, unspecified; R06.02 Shortness of breath; Z95.2 Presence of prosthetic heart valve; Z79.01 Long term (current) use of 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; Z79.899 Other long term (current) drug therapy; Z86.16 Personal history of COVID-19; Z86.73 Personal history of transient ischemic attack (TIA), and cerebral infarction without residual deficits
CPT/HCPCS: 36415; 71046; 71250; 74174; 80048; 80053; 82140; 82274; 83605; 83880; 85025; 85610; 85730; 87040; 93005; 96365; 96366; 96367; 99285; Q9967; A4216

== ENCOUNTER → 2025-02-12 | Outpatient (CLI) | payer MEDICARE, OTHER, SELFPAY ==
--- NOTE | 2025-02-12 15:40 | RAD_ITS ---
PROCEDURE: CHEST PA AND LATERAL 02/12/2025 REASON FOR EXAM: COUGH TECHNIQUE: Single view chest with supine and upright views of the abdomen. COMPARISON: Chest x-ray dated 03/29/2023. FINDINGS: Pacemaker, dialysis catheter are noted overlying the right chest. There are stable median sternotomy wires present. Cardiac silhouette is stable in size. Since prior examination, there has been significant increasing pulmonary vascular congestion throughout. There also increasing bilateral pulmonary infiltrates particularly within the mid to lower lung zones. These findings are concerning for multifocal pneumonia versus pulmonary edema. Follow-up until resolution is recommended. Surgical clips seen within the right upper abdominal quadrant, likely from prior cholecystectomy procedure. Surgical clips seen overlying the right neck region. RAD/Chest PA and Lateral IMPRESSION: Increasing bilateral alveolar interstitial infiltrates are suggestive of multif ocal pneumonia versus significant pulmonary edema. Follow-up until resolution is recommended. Reading Location: [id number]
[2025-02-12 16:14] LABS: Absolute Lymphocyte Count 1.23 X10^3/uL (0.83-4.51); Absolute Neutrophil Count 5.7 X10^3/uL (2.0-7.7); Basophil# 0.03 X10^3/uL; Basophil% 0.4 % (0-1); Eosinophil# 0.15 X10^3/uL; Eosinophils% 1.9 % (0-5); Hematocrit 24.8 % (40-54); Hemoglobin 7.8 g/dL (13.0-16.5); Lymphocyte # 1.23 X10^3/ul (0.83-4.51); Lymphocyte % 15.8 % (19-41); Mean Corp Hgb Conc 31.5 g/dL (32-36); Mean Corpuscular Hgb 34.1 pg (27.0-32.0); Mean Corpuscular Volume 108.3 fL (80-94); Mean Platelet Vol. 10.5 fl (6.2-12.0); Monocyte# 0.68 X10^3/uL; Monocyte% 8.7 % (0-10); NRBC Flagged by Analyzer 0 % (0-5); Neutrophil # 5.65 X10^3/uL (2.7-7.7); Neutrophil % 72.4 % (47-70); POSITIVE MORPHOLOGY YES; Platelet Count 146 K/mm3 (150-450); RBC Distribution Width CV 18.7 % (11.6-14.6); RBC Distribution Width SD 73.6 fl (35.1-43.9); Red Blood Count 2.29 M/mm3 (4.6-6.2); White Blood Count 7.8 K/mm3 (4.4-11.0)
[2025-02-12 17:06] LABS: Ammonia 27.3 umol/L (16-60)
[2025-02-12 17:17] LABS: Differential Indicated SCAN CRITERIA MET
[2025-02-12 17:19] LABS: Anisocytosis 1+; Macrocytosis 1+; Ovalocyte 1+; Platelet Estimate ADEQUATE (ADEQ); Red Cell Morphology N CHROM NORMAL (NORM C&C)
[2025-02-12 19:55] LABS: Anion Gap 20 (5-15); BUN 25 mg/dL (4-19); BUN/Creat Ratio 4.2 RATIO (10-20); Calcium,Total 8.3 mg/dL (7.6-11.0); Carbon Dioxide 23.2 mmol/L (21.0-32.0); Chloride 93 mmol/L (98-108); Creatinine, Serum 5.84 mg/dL (0.70-1.20); EST Glomerular Filtration Rate 9 (>60); Glucose 91 mg/dL (70-99); Potassium 3.3 mmol/L (3.3-5.1); Sodium Level 137 mmol/L (133-145)
[2025-02-12 20:14] LABS: Pro- Brain NATRIURETIC PEPTIDE 46910 pg/mL (<=1800)
== END | disposition home or self-care (01) ==
LOC: LAB 15:09
PROVIDERS: PCP Family Medicine; Referring Provider Family Medicine; Visit Provider Family Medicine
DX: R05.9 Cough, unspecified (principal); K74.60 Unspecified cirrhosis of liver; R53.1 Weakness; R06.00 Dyspnea, unspecified; E87.1 Hypo-osmolality and hyponatremia
CPT/HCPCS: 36415; 71046; 80048; 82140; 83880; 85025

== ENCOUNTER → 2025-03-23 | Outpatient (CLI) | payer MEDICARE, OTHER, SELFPAY ==
--- NOTE | 2025-03-23 13:54 | CT_ITS ---
PROCEDURE: ABDOMEN/PELVIS WITH CONTRAST 03/23/2025 and 07/31/2023 REASON FOR EXAM: HYPEREMESIS TECHNIQUE: Abdomen and pelvis CT with intravenous and oral contrast. Coronal and Sagittal reconstruction series were provided. PATIENT PREPARATION: Per protocol INTRAVENOUS CONTRAST: 100 mL Isovue 300 One or more dose reduction techniques were used (e.g., Automated exposure control, adjustment of the mA and/or kV according to patient size, use of iterative reconstruction technique. RADIATION DOSE SUMMARY: CTDlvol: 15.5 mGy DLP: 852.5 mGycm COMPARISON: CT abdomen and pelvis 02/12/2025 FINDINGS: Lung bases: Left pleural effusion with peripheral enhancement, similar to prior. Left lower lobe atelectasis. Cardiomegaly with device leads partially imaged. Liver: Subcentimeter hyperdensity in the midline liver (series 2 image 24), similar to CT in 2022 Gallbladder: Surgically absent. Spleen: Calcifications at the periphery are unchanged. Pancreas: Unremarkable. Adrenals: Subcentimeter left adrenal nodule is unchanged. Kidneys: Bilateral cortical atrophy. Bilateral simple cysts. No hydronephrosis. Bladder: Unremarkable for degree of distention. Reproductive Organs: Marked prostatomegaly Bowel: No obstruction or inflammation. Colonic diverticulosis. Appendix: The appendix is not identified. There is no inflammatory process identified in the right lower quadrant to suggest appendicitis. Lymph nodes: A few prominent subcentimeter retroperitoneal lymph nodes are unchanged. Vasculature: Moderate diffuse atherosclerotic calcifications are noted. Peritoneum / Retroperitoneum: No free fluid. Bones: Degenerative changes of the spine. Soft tissues: Surgical clips in the right inguinal region. CT/Abdomen/Pelvis WITH Contrast IMPRESSION: 1. No acute intra-abdominal abnormality. 2. Moderate left pleural effusion with peripheral enhancement, again suggestiv e of empyema. 3. Multiple additional unchanged findings as detailed above. Reading Location: [facility]
== END | disposition home or self-care (01) ==
PROVIDERS: PCP Family Medicine
DX: K76.6 Portal hypertension (principal); K31.89 Other diseases of stomach and duodenum
CPT/HCPCS: 74177; Q9967

== ENCOUNTER → 2025-04-08 | Outpatient (CLI) | payer MEDICARE, OTHER, SELFPAY ==
--- NOTE | 2025-04-08 10:10 | NM_ITS ---
PROCEDURE: GASTRIC EMPTYING STUDY 04/08/2025 REASON FOR EXAM: HYPEREMESIS COMPARISON: None TECHNIQUE: The patient ingested a standard meal of oatmeal with 1.2 mCi of technetium labeled sulfur colloid and water. There was no vomiting postprandially. Anterior and posterior planar images of the upper abdomen were obtained for 1 minute immediately following the meal at 1h, 2h and 4h if more than 10% of the activity persisted within the stomach. Regions of interest were drawn, and a geometric mean was used to calculate a [id number]. RADIOPHARMACEUTICAL: Sulfur colloid DOSE 1.2mCi FINDINGS: Percent activity remaining in stomach: 1 hour 50 % (normal 37-90%) NM/Gastric Emptying Study IMPRESSION: Normal gastric emptying. Reading Location: [place] [id number]
== END | disposition home or self-care (01) ==
LOC: PSN 07:54
PROVIDERS: PCP Family Medicine; Referring Provider Nurse Practitioner Acute Care; Visit Provider Nurse Practitioner Acute Care
DX: R06.00 Dyspnea, unspecified (principal); K76.6 Portal hypertension; K31.89 Other diseases of stomach and duodenum
CPT/HCPCS: 78264; 94060; 94726; 94729; A9541

== ENCOUNTER 2025-04-18 17:59 | Emergency (ER) | payer MEDICARE, OTHER, SELFPAY ==
[2025-04-18 18:01] VITALS: BP 106/52; PULSE 94; RESP 16; TEMP 36.4; O2SAT 100; BMI 24.9
--- NOTE | 2025-04-18 18:19 | RAD_ITS ---
PROCEDURE: PELVIS 1 OR 2 VIEWS 04/18/2025 REASON FOR EXAM: PAIN TECHNIQUE: 1 view(s) of the pelvis. COMPARISON: None. FINDINGS: No evidence of acute fracture or dislocation. Mild degenerative changes of the bilateral hips. Surgical clips overlie the right hip. RAD/Pelvis 1 or 2 Views IMPRESSION: No acute osseous abnormalities. Mild hip osteoarthrosis. Reading Location: [place] [id number]
--- NOTE | 2025-04-18 18:19 | RAD_ITS ---
PROCEDURE: FEMUR MIN 2 VIEWS 04/18/2025 REASON FOR EXAM: PAIN TECHNIQUE: 4 views of the right femur. COMPARISON: None. FINDINGS: No evidence of acute fracture or dislocation. Surgical clips overlie the right hip. RAD/Femur Min 2 Views IMPRESSION: No acute osseous abnormality. Reading Location: [place] [id number]
[2025-04-18 18:27] VITALS: BMI 26.5
--- NOTE | 2025-04-18 18:29 | EDS_ITS ---
HPI <VIRIDIANA Art - Last Filed: 04/18/25 19:35> History of Present Illness Chief Complaint: Lower Extremity Injury Narrative Narrative: 75-year-old male uses a rollator and tripped in the bathroom 2 days ago when he was bending over to olive picker a bathroom scale. He states he fell backward onto his buttock and right hip. No head injury or LOC. That evening he was able to ambulate with his rollator but has had progressive pain in the right hip and thigh and his has been pushing him around in a wheelchair. He denies pain radiating down the leg. No weakness or paresthesias. No back pain. 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 History of rheumatic fever as a child COVID-19 Infectious endocarditis Non-ST elevation (NSTEMI) myocardial infarction CAD (coronary artery disease) History of pacemaker Coagulopathy Airway intubation performed without difficulty Cardiopulmonary arrest with successful resuscitation Hypothyroidism (acquired) Abnormal results of thyroid function studies Hyperthyroidism MIA (obstructive sleep apnea) Dyspnea Non-rheumatic mitral regurgitation Non-rheumatic mitral valve stenosis Iron deficiency History of diffuse large B-cell lymphoma Anemia in chronic kidney disease Pure hypercholesterolemia Biventricular cardiac pacemaker in situ (~05/26/16) Encounter for long-term (current) use of high-risk medication 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, 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 TIA (transient ischemic attack) (~11/19/15) History of DVT (deep vein thrombosis) Gout Paroxysmal ventricular tachycardia Atrial flutter Cardiomyopathy in disease classified elsewhere MRSA (methicillin resistant Staphylococcus aureus) infection History of non-Hodgkin's lymphoma Endocarditis due to Staphylococcus Benign essential hypertension Home Medications ?Medication ?Instructions ?Recorded ?Last Taken ?Type levothyroxine 75 mcg tablet 75 mcg PO DAILY thyroid 12/16/24 History vitamin B complex-vitamin C-folic 1 tab PO DAILY vitam in 01/10/22 12/16/24 History acid 0.8 mg tablet (Nephro-Baltazar) doxycycline hyclate 100 mg tablet 100 mg PO BID infect ion 11/27/22 12/16/24 History fluconazole 200 mg tablet 200 mg PO DAILY 06/11/23 History sucroferric oxyhydroxide 500 mg 1,000 mg PO QPC 12/15/24 History chewable tablet (Velphoro) albuterol sulfate 90 mcg/actuation 2 puff inhalation Q 4-6H PRN 03/19/24 Unknown History aerosol inhaler shortness of breath or wheez ing alprazolam 1 mg tablet (Xanax) 1 mg PO QHS Sleep 05/2812/15/24 History cyclobenzaprine 10 mg tablet 10 mg PO BID 05/28/24 History pantoprazole 40 mg tablet,delayed 40 mg PO QAM #90 tab s 12/01/24 12/16/24 Rx release warfarin 1 mg tablet (Jantoven) 1 mg PO .satsun 12/16/24 History warfarin 2 mg tablet 2 mg PO .-sun12/16/2411/20 History amoxicillin 500 mg capsule 2,000 mg PO DAILY PRN DENTA L 12/17/24 Unknown History TREATMENT triamcinolone acetonide 0.1 % 1 applic topical BID PRN SKIN 12/17/24 Unknown History 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 cinacalcet 30 mg tablet 30 mg PO MOTH 01/28/25 Unkno wn History lactulose 10 gram/15 mL oral 20 ml PO QDAY 01/28/25 Un known History solution (Constulose) metoclopramide HCl 5 mg tablet 2.5 mg (1/2 x 5 mg) PO QAC #50 tabs 03/17/25 Unknown Rx midodrine 10 mg tablet See Rx Instructions PO .COMP STU To 03/25/25 Unknown History keep BP up during dialysis Allergy/AdvReac Type Severity Reaction Status Date / Time No Known Allergies Allergy Verified 04/18/25 18:03 Family History Father CAD (coronary artery disease) CABG Brother CAD (coronary artery disease) CABG Mother Diabetes Sister Breast cancer Diabetes Sister Cancer breast Diabetes Surgical History History of esophagogastroduodenoscopy (EGD) History of colonoscopy S/P arteriovenous (AV) fistula repair History of mechanical aortic valve replacement (~08/24/03) History of heart valve replacement with mechanical valve History of atrioventricular chiquita ablation History of heart valve replacement with mechanical valve History of evacuation of hematoma History of cholecystectomy History of appendectomy dual chamber pacemaker implantation (~10/2010) History of aortic valve replacement (~08/2003) History of mitral valve repair (~08/24/03) History of mechanical aortic valve replacement (~1986) Social History household members: spouse housing: house current occupational status: retired current occupational exposures/hazards: No history of recent travel: No Smoking Status: Never smoker alcohol intake: never substance use type: does not use caffeine: No what type of physical activity do you participate in: weight training and other details: Nustep frequency: 3-4 times per week duration: 45-60 minutes/day seatbelt use: always do you feel safe at home: Yes ROS <VIRIDIANA Art - Last Filed: 04/18/25 19:35> ROS ED ROS Narrative Respiratory: Negative for shortness of breath. GI: Negative for abdominal pain, nausea, vomiting. Neuro: Negative for motor/sensory dysfunction. Skin: Negative for wound. Musc: Positive for right hip pain. EXAM <VIRIDIANA Art - Last Filed: 04/18/25 19:35> Physical Exam Narrative Exam Narrative: CONST: Patient sitting in no acute distress. EYES: Normal inspection. NECK: Normal inspection. RESP: No respiratory distress, CTAB. CVS: Regular rate and rhythm, flexor mechanical heart valve. ABD: Soft and nontender, no guarding or rebound, nondistended. Back: Normal inspection, no midline tenderness. SKIN: Color normal, no rash, warm, dry, intact. EXTREMITIES: Normal appearance, full range of motion of upper extremities, no bony tenderness, 2+ radial pulses. Pelvis stable. No reproducible tenderness palpation over the hip femur knee or lower leg but he has pain in the lateral hip and proximal femur with logroll. Able to extend both knees and dorsiflex and plantarflex. 2+ DP pulses. NEURO: Alert and answering questions appropriately. PSYCH: Normal affect. Const Vital Signs: 04/18/25 18:01 Temperature 97.6 F L Temperature Source Oral Pulse Rate 94
--- NOTE | 2025-04-18 18:29 | ED.VIS.LOWEX ---
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 He states he fell backward onto his buttock and right hip. No head injury or LOC. That evening he was able to ambulate with his rollator but has had progressive pain in the right hip and thigh and his has been pushing him around in a wheelchair. He denies pain radiating down the leg. No weakness or paresthesias. No back pain. [facility] <VIRIDIANA Art - Last Filed: 04/18/25 19:35> [facility] Medical History (Reviewed 03/25/25 @ 09:42 by Sue Roberts SPECIAL PROCEDURES TECHNOLOGIST, SPECIAL PROCEDURES TECHNOLOGIST-C) Pleural effusion associated with hepatic disorder ABLA (acute blood loss anemia) Anemia requiring transfusions Atherosclerotic heart disease of [place] coronary artery without angina pectoris Cirrhosis HLD (hyperlipidemia) Other specified cardiac dysrhythmias ESRD (end stage renal disease) on dialysis CKD stage G5/A1, GFR <15 and albumin creatinine ratio <30 mg/g Sepsis Vitamin D insufficiency Polyneuropathy Mild cognitive impairment 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) use of 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 History of rheumatic fever as a child COVID-19 Infectious endocarditis Non-ST elevation (NSTEMI) myocardial infarction CAD (coronary artery disease) History of pacemaker Coagulopathy Airway intubation performed without difficulty Cardiopulmonary arrest with successful resuscitation Hypothyroidism (acquired) Abnormal results of thyroid function studies Hyperthyroidism MIA (obstructive sleep apnea) Dyspnea Non-rheumatic mitral regurgitation Non-rheumatic mitral valve stenosis Iron deficiency History of diffuse large B-cell lymphoma Anemia in chronic kidney disease Pure hypercholesterolemia Biventricular cardiac pacemaker in situ (~05/26/16) Encounter for long-term (current) use of high-risk medication 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, 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 TIA (transient ischemic attack) (~11/19/15) History of DVT (deep vein thrombosis) Gout Paroxysmal ventricular tachycardia Atrial flutter Cardiomyopathy in disease classified elsewhere MRSA (methicillin resistant Staphylococcus aureus) infection History of non-Hodgkin's lymphoma Endocarditis due to Staphylococcus Benign essential hypertension Home Medications ?Medication ?Instructions ?Recorded ?Last Taken ?Type levothyroxine 75 mcg tablet 75 mcg PO DAILY thyroid 08/24/21 12/16/24 History vitamin B complex-vitamin C-folic 1 tab PO DAILY vitamin 01/10/22 12/16/24 History acid 0.8 mg tablet (Nephro-Baltazar) doxycycline hyclate 100 mg tablet 100 mg PO BID infection 11/27/22 12/16/24 History fluconazole 200 mg tablet 200 mg PO DAILY 06/11/23 12/16/24 History sucroferric oxyhydroxide 500 mg 1,000 mg PO QPC 12/12/23 12/15/24 History chewable tablet (Velphoro) albuterol sulfate 90 mcg/actuation 2 puff inhalation Q4-6H PRN 03/19/24 Unknown History aerosol inhaler shortness of breath or wheezing alprazolam 1 mg tablet (Xanax) 1 mg PO QHS Sleep 05/28/24 12/15/24 History cyclobenzaprine 10 mg tablet 10 mg PO BID 05/28/24 12/16/24 History pantoprazole 40 mg tablet,delayed 40 mg PO QAM #90 tabs 12/01/24 12/16/24 Rx release warfarin 1 mg tablet (Jantoven) 1 mg PO .[place] 12/16/24 12/16/24 History warfarin 2 mg tablet 2 mg PO .-sun12/16/24 12/15/24 History amoxicillin 500 mg capsule 2,000 mg PO DAILY PRN DENTAL 12/17/24 Unknown History TREATMENT triamcinolone acetonide 0.1 % 1 applic topical BID PRN SKIN 12/17/24 Unknown History 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 cinacalcet 30 mg tablet 30 mg PO MOTH 01/28/25 Unknown History lactulose 10 gram/15 mL oral 20 ml PO QDAY 01/28/25 Unknown History solution (Constulose) metoclopramide HCl 5 mg tablet 2.5 mg (1/2 x 5 mg) PO QAC #50 tabs 03/17/25 Unknown Rx midodrine 10 mg tablet See Rx Instructions PO .COMPLEX To 03/25/25 Unknown History keep BP up during dialysis Allergy/AdvReac Type Severity Reaction Status Date / Time No Known Allergies Allergy Verified 04/18/25 18:03 Family History (Reviewed 03/25/25 @ 09:42 by Sue Roberts SPECIAL PROCEDURES TECHNOLOGIST, SPECIAL PROCEDURES TECHNOLOGIST-C) Father CAD (coronary artery disease) CABG Brother CAD (coronary artery disease) CABG Mother Diabetes Sister Breast cancer Diabetes Sister Cancer breast Diabetes Surgical History (Reviewed 03/25/25 @ 09:42 by Sue Roberts SPECIAL PROCEDURES TECHNOLOGIST, SPECIAL PROCEDURES TECHNOLOGIST-C) History of esophagogastroduodenoscopy (EGD) History of colonoscopy S/P arteriovenous (AV) fistula repair History of mechanical aortic valve replacement (~08/24/03) History of heart valve replacement with mechanical valve History of atrioventricular chiquita ablation History of heart valve replacement with mechanical valve History of evacuation of hematoma History of cholecystectomy History of appendectomy dual chamber pacemaker implantation (~10/2010) History of aortic valve replacement (~08/2003) History of mitral valve repair (~08/24/03) History of mechanical aortic valve replacement (~1986) Social History (Reviewed 03/25/25 @ 09:42 by Sue Roberts SPECIAL PROCEDURES TECHNOLOGIST, SPECIAL PROCEDURES TECHNOLOGIST-C) household members: spouse housing: house current occupational status: retired current occupational exposures/hazards: No history of recent travel: No Smoking Status: Never smoker alcohol intake: never substance use type: does not use caffeine: No what type of physical activity do you participate in: weight training and other details: Nustep frequency: 3-4 times per week duration: 45-60 minutes/day seatbelt use: always do you feel safe at home: Yes ROS <VIRIDIANA rAt - Last Filed: 04/18/25 19:35> ROS ED ROS Narrative Respiratory: Negative for shortness of breath. GI: Negative for abdominal pain, nausea, vomiting. Neuro: Negative for motor/sensory dysfunction. Skin: Negative for wound. Musc: Positive for right hip pain. EXAM <VIRIDIANA Art - Last Filed: 04/18/25 19:35> Physical Exam Narrative Exam Narrative: CONST: Patient sitting in no acute distress. EYES: Normal inspection. NECK: Normal inspection. RESP: No respiratory distress, CTAB. CVS: Regular rate and rhythm, flexor mechanical heart valve. ABD: Soft and nontender, no guarding or rebound, nondistended. Back: Normal inspection, no midline tenderness. SKIN: Color normal, no rash, warm, dry, intact. EXTREMITIES: Normal appearance, full range of motion of upper extremities, no bony tenderness, 2+ radial pulses. Pelvis stable. No reproducible tenderness palpation over the hip femur knee or lower leg but he has pain in the lateral hip and proximal femur with logroll. Able to extend both knees and dorsiflex and plantarflex. 2+ DP pulses. NEURO: Alert and answering questions appropriately. PSYCH: Normal affect. Const Vital Signs: 04/18/25 18:01 Temperature 97.6 F L Temperature Source Oral Pulse Rate 94 Respiratory Rate 16 Blood Pressure 106/52 L Blood Pressure Mean 70 Pulse Ox 100 Oxygen Delivery Method Room Air <Dr. Kush Pool MD - Last Filed: 04/18/25 20:54> Physical Exam Const Vital Signs: 04/18/25 18:01 Temperature 97.6 F L Temperature Source Oral Pulse Rate 94 Respiratory Rate 16 Blood Pressure 106/52 L Blood Pressure Mean 70 Pulse Ox 100 Oxygen Delivery Method Room Air MDM <VIRIDIANA Art - Last Filed: 04/18/25 19:35> MDM MDM Narrative Medical decision making narrative: History of from: Patient and spouse Differential includes contusion versus hyper phallic fracture 75-year-old male had mechanical fall 2 days ago injuring his right hip. He has had progressively worsening pain. He normally uses a rollator but his has been pushing him in a wheelchair. He is awake alert no distress. Vital stable. He has no external signs of injury. He reports the pain is over the right lateral hip and proximal femur but I cannot reproduce it with palpation. He has slight pain with logroll. No shortening or rotation. Distal pulses intact. The rest of his exam is negative for trauma. X-rays of the right hip and femur are negative. Patient to ambulate with his rollator and they are comfortable going home. I recommended ice and Tylenol and follow-up with primary care if symptoms do not improve with conservative treatment for repeat imaging. He was discharged in stable condition. I have personally performed a face to face assessment of the patient and have reviewed the RYAN Note. I performed a substantive portion of the visit including all aspects of the following. My maldonado findings include: History is patient had mechanical fall. He was reaching for a scale that was in pounds since the pill he was given by dialysis was in kilograms 100 and what his weight was not pounds. He fell. He complains of pain right ischial tuberosity right greater trochanteric area. He has no history of head trauma. He denies neck pain. Nuys paresthesia, anesthesia Medicus upper or lower extremity. Denies cardiac respiratory symptoms Exam is vital signs noted. HEENT is unremarkable no evidence of trauma. There is no midline posterior cervical neck pain. Lungs are clear to sedation. Heart is regular. Rate is normal. Abdomen is soft nontender. There is no pain ovation over the pubic symphysis iliac wing or left ischial tuberosity. He does have pain ovation over the right ischial tuberosity and the right greater trochanteric region there is no shortening of the right lower extremity. Logrolling causes no discomfort. He has no pain to palpation of his knee. There is no swelling of the knee. Medical Decision Making x-ray of the femur and pelvis were obtained. There is no acute findings per my read. Will have nurse make patient ambulate to make sure he is able to weight-bear. If he is able to weight-bear he will be discharged to home Other additions or changes: [None] Radiography Diagnostic Testing: Clinical Impression(s) from Imaging Studies Femur X-Ray 04/18/25 18:19 IMPRESSION: No acute osseous abnormality. Reading Location: [id number] Pelvis X-Ray 04/18/25 18:19 IMPRESSION: No acute osseous abnormalities. Mild hip osteoarthrosis. Reading Location: [id number] ED attending interpretation of right hip shows no fracture or dislocation. ED attending interpretation of right femur shows no fracture or dislocation. <Dr. Kush Pool MD - Last Filed: 04/18/25 20:54> [facility] Narrative Medical decision making narrative: History of from: Patient and spouse Differential includes contusion versus hyper phallic fracture 75-year-old male had mechanical fall 2 days ago injuring his right hip. He has had progressively worsening pain. He normally uses a rollator but his has been pushing him in a wheelchair. He is awake alert no distress. Vital stable. He has no external signs of injury. He reports the pain is over the right lateral hip and proximal femur but I cannot reproduce it with palpation. He has slight pain with logroll. No shortening or rotation. Distal pulses intact. The rest of his exam is negative for trauma. X-rays of the right hip and femur are negative. Patient to ambulate with his rollator and they are comfortable going home. I recommended ice and Tylenol and follow-up with primary care if symptoms do not improve with conservative treatment for repeat imaging. He was discharged in stable condition. I have personally performed a face to face assessment of the patient and have reviewed the RYAN Note. I performed a substantive portion of the visit including all aspects of the following. My maldonado findings include: History is patient had mechanical fall. He was reaching for a scale that was in pounds since the pill he was given by dialysis was in kilograms 100 and what his weight was not pounds. He fell. He complains of pain right ischial tuberosity right greater trochanteric area. He has no history of head trauma. He denies neck pain. Nuys paresthesia, anesthesia Medicus upper or lower extremity. Denies cardiac respiratory symptoms Exam is vital signs noted. HEENT is unremarkable no evidence of trauma. There is no midline posterior cervical neck pain. Lungs are clear to sedation. Heart is regular. Rate is normal. Abdomen is soft nontender. There is no pain ovation over the pubic symphysis iliac wing or left ischial tuberosity. He does have pain ovation over the right ischial tuberosity and the right greater trochanteric region there is no shortening of the right lower extremity. Logrolling causes no discomfort. He has no pain to palpation of his knee. There is no swelling of the knee. Medical Decision Making x-ray of the femur and pelvis were obtained. There is no acute findings per my read. Will have nurse make patient ambulate to make sure he is able to weight-bear. If he is able to weight-bear he will be discharged to home Other additions or changes: Patient was able to walk with his walker. He had no limp. Therefore will discharge to home Radiography Chest X-Ray - ED: 1 View (Single view pelvis reveals no acute fracture or abnormality. Surgical clips noted right side. This is dependently reviewed interpreted by me at 1857), 2 View (2 view x-ray of the femur reveals no fracture. There is no dislocation subluxation of the hip joint or knee joint.) and Read by ED Physician Diagnostic Testing: Clinical Impression(s) from Imaging Studies Femur X-Ray 04/18/25 18:19 IMPRESSION: No acute osseous abnormality. Reading Location: [id number] Pelvis X-Ray 04/18/25 18:19 IMPRESSION: No acute osseous abnormalities. Mild hip osteoarthrosis. Reading Location: [id number] Discharge Plan Triage Chief Complaint: Lower Extremity Injury ED Midlevel Provider: Kayleigh Heath ED Provider: Kush Pool Dx/Rx/DC Orders Clinical Impression: Fall, Contusion of hip, right Instructions: Bruises (Contusions) Prescriptions: No Action alprazolam [Xanax] 1 mg tablet 1 mg PO QHS doxycycline hyclate 100 mg tablet 100 mg PO BID fluconazole 200 mg tablet 200 mg PO DAILY Velphoro 500 mg tablet,chewable 1,000 mg PO QPC Rx Instructions: WITH EACH MEAL cyclobenzaprine 10 mg tablet 10 mg PO BID albuterol sulfate 90 mcg/actuation HFA aerosol inhaler 2 puff inhalation Q4-6H PRN (Reason: shortness of breath or wheezing) Patient Comments: pt hasnt taken in over year metoclopramide HCl 5 mg tablet 2.5 mg PO QAC Qty: 50 1RF Rx Instructions: administer 30 minutes before meals midodrine 10 mg tablet See Rx Instructions PO .COMPLEX Patient Comments: Take up to 4 tabs on dialysis days Rx Instructions: orally; up to 4 tabs on dialysis days (--) levothyroxine 75 mcg tablet 75 mcg PO DAILY Nephro-Baltazar 0.8 mg tablet 1 tab PO DAILY warfarin [Jantoven] 1 mg tablet 1 mg PO .[place] Protocol: Dose Management Condition: Sunday Dose/Route: 2 mg Instruction: 1 x 2 mg tablet Condition: Sunday Dose/Route: 3 mg Instruction: 1 x 1 mg tablet, 1 x 2 mg tablet Condition: Sunday Dose/Route: 2 mg Instruction: 1 x 2 mg tablet Condition: Sunday Dose/Route: 2 mg Instruction: 1 x 2 mg tablet Condition: Dose/Route: 2 mg Instruction: 1 x 2 mg tablet Condition: Sunday Dose/Route: 2 mg Instruction: 1 x 2 mg tablet Condition: Sunday Dose/Route: 2 mg Instruction: 1 x 2 mg tablet Protocol Text: Adjustment Start Date: Sunday04/14/25 INR Value: 2.3 INR Date: 04/13/25 Recheck Date: 04/20/25 Patient Comments: BASED ON INR warfarin 2 mg tablet 2 mg PO . Protocol: Dose Management Condition: Sunday Dose/Route: 2 mg Instruction: 1 x 2 mg tablet Condition: Sunday Dose/Route: 3 mg Instruction: 1 x 1 mg tablet, 1 x 2 mg tablet Condition: Sunday Dose/Route: 2 mg Instruction: 1 x 2 mg tablet Condition: Sunday Dose/Route: 2 mg Instruction: 1 x 2 mg tablet Condition: Dose/Route: 2 mg Instruction: 1 x 2 mg tablet Condition: Sunday Dose/Route: 2 mg Instruction: 1 x 2 mg tablet Condition: Sunday Dose/Route: 2 mg Instruction: 1 x 2 mg tablet Protocol Text: Adjustment Start Date: Sunday04/14/25 INR Value: 2.3 INR Date: 04/13/25 Recheck Date: 04/20/25 Patient Comments: BASED ON INR lactulose [Constulose] 10 gram/15 mL solution 20 ml PO QDAY cinacalcet 30 mg tablet 30 mg PO MOTH amoxicillin 500 mg capsule 2,000 mg PO DAILY PRN (Reason: DENTAL TREATMENT) Rx Instructions: TAKE 1 HOUR PRIOR TO TREATMENT triamcinolone acetonide 0.1 % lotion 1 applic topical BID PRN (Reason: SKIN 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) pantoprazole 40 mg tablet,delayed release (DR/EC) 40 mg PO QAM Qty: 90 3RF Primary Care Provider: David Menjivar Referrals: David Menjivar DO [Primary Care Provider] - Activity Restrictions/Additional Instructions: The x-rays of your hip, pelvis, and femur show no fractures. I suspect you have pain from bruising. I recommend you ice and 20-minute sessions off-and-on throughout the day and take Tylenol every 6 hours as needed. Pain is not improving in 7 to 10 days see your family doctor. Print Language: Hong [place]er Disposition Disposition: Home, Self Care Discharge Date/Time: 04/18/25 19:50
--- NOTE | 2025-04-18 19:46 | NURSING ---
Pt ambulated in the [place] with walker. Did well.
== END 2025-04-18 19:50 | disposition home or self-care (01) ==
PROVIDERS: Emergency Provider Emergency Medicine; PCP Family Medicine; Visit Provider Emergency Medicine
DX: S70.01XA Contusion of right hip, initial encounter (principal); I12.0 Hypertensive chronic kidney disease with stage 5 chronic kidney disease or end stage renal disease; N18.6 End stage renal disease; W01.0XXA Fall on same level from slipping, tripping and stumbling without subsequent striking against object, initial encounter; Y92.002 Bathroom of unspecified non-institutional (private) residence as the place of occurrence of the external cause; Z99.2 Dependence on renal dialysis; Z79.01 Long term (current) use of 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; Z79.899 Other long term (current) drug therapy; Z86.718 Personal history of other venous thrombosis and embolism; Z86.16 Personal history of COVID-19
CPT/HCPCS: 72170; 73552; 99282

== ENCOUNTER → 2025-04-29 | Outpatient (CLI) | payer MEDICARE, OTHER, SELFPAY ==
--- NOTE | 2025-04-29 13:53 | CT_ITS ---
PROCEDURE: CHEST WITHOUT CONTRAST 04/29/2025 REASON FOR EXAM: PNEUMONIA TECHNIQUE: Chest CT without contrast. Coronal and Sagittal reconstruction series were provided. One or more dose reduction techniques were used (e.g., Automated exposure control, adjustment of the mA and/or kV according to patient size, use of iterative reconstruction technique RADIATION DOSE SUMMARY: CTDlvol: 12.38 mGy DLP: 399 mGycm COMPARISON: 02/12/2025. FINDINGS: Right internal jugular central catheter is in good position. AICD remains in good position. Unchanged moderate cardiomegaly. Prior CABG, unchanged. Unchanged coronary artery calcifications. Prior valve replacement, unchanged. Dilatation of the main pulmonary artery measuring 3.8 cm, unchanged. Unchanged moderate-sized left pleural effusion. Unchanged left pleural thickening. Unchanged airspace consolidation in the left lower lobe. Decreased bilateral basilar atelectatic pulmonary changes. Unchanged right pleural calcifications. Moderate diffuse spondylosis. Normal unenhanced main pulmonary artery and right and left pulmonary arteries. Normal bilateral peripheral pulmonary arteries. Calcified atheromatous plaques of the thoracic aorta and visualized great vessels. There is no demonstrated aortic aneurysm. Normal pericardium. Normal mediastinum. Normal hilar regions. Normal visualized trachea and bronchi. CT/Chest without Contrast IMPRESSION: Coronary artery calcification (CAC) is is present Right internal jugular central catheter is in good position. AICD remains in good position. Unchanged moderate cardiomegaly. Prior CABG, unchanged. Unchanged coronary artery calcifications. Prior valve replacement, unchanged. Dilatation of the main pulmonary artery measuring 3.8 cm, unchanged. Unchanged moderate-sized left pleural effusion. Unchanged left pleural thickening. Unchanged airspace consolidation in the left lower lobe. Decreased bilateral basilar atelectatic pulmonary changes. Unchanged right pleural calcifications. Moderate diffuse spondylosis. Reading [facility]
--- NOTE | 2025-04-29 13:54 | CT_ITS ---
PROCEDURE: EXTREMITY LOWER WITHOUT CONTRA 04/29/2025 REASON FOR EXAM: R PROMIXAL FEMUR PAIN S/P FALL X RAY NEGATIVE TECHNIQUE: Axial CT images of the right femur obtained without intravenous contrast. Coronal and Sagittal reconstruction series were provided. CONTRAST: None One or more dose reduction techniques were used (e.g., Automated exposure control, adjustment of the mA and/or kV according to patient size, use of iterative reconstruction technique). RADIATION DOSE SUMMARY: DLP: 879.54 mGycm COMPARISON: April 18, 2025 FINDINGS: Bones: There is a nondisplaced fracture of the right superior ramus, with a component extending into the anterior medial acetabulum, axial image 21-/213. There is a nondisplaced fracture of the inferior pubic ramus in the middle 1/3 on the right, axial image 39-47/213. The femur appears intact. Surgical clips are noted in the inguinal region and right lower quadrant. Atherosclerotic calcifications are visible. Joints: The hip joint space is maintained. CT/Extremity Lower without Contra IMPRESSION: There is a nondisplaced fracture of the right superior ramus, with a component extending into the anterior medial acetabulum, axial image 21-/213. There is a nondisplaced fracture of the inferior pubic ramus in the middle 1/3 on the right, axial image 39-47/213. Multiple attempts were made to communicate the critical findings. Callback con firmation is requested. Reading Location: [facility]
== END | disposition home or self-care (01) ==
LOC: PSN 13:51 → CT 13:51
PROVIDERS: PCP Family Medicine; Referring Provider Nurse Practitioner Acute Care; Visit Provider Family Medicine
DX: M79.651 Pain in right thigh (principal); R06.00 Dyspnea, unspecified
CPT/HCPCS: 71250; 73700; J2405

== ENCOUNTER → 2025-06-11 | Outpatient (CLI) | payer MEDICARE, OTHER, SELFPAY ==
[2025-06-11 11:20] LABS: Prothrombin Time (Protime)PT. 27.9 SECONDS (11.7-14.9)
== END | disposition home or self-care (01) ==
LOC: LAB 10:39
PROVIDERS: PCP Family Medicine; Referring Provider Physician Assistant Medical; Visit Provider Physician Assistant Medical
DX: Z51.81 Encounter for therapeutic drug level monitoring (principal); Z79.01 Long term (current) use of 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; Z95.2 Presence of prosthetic heart valve
CPT/HCPCS: 36415; 85610

== ENCOUNTER 2025-06-14 08:52 | Emergency (ER) | payer MEDICARE, OTHER, SELFPAY ==
[2025-06-14 08:53] VITALS: BP 124/41; PULSE 88; RESP 16; TEMP 36.4; O2SAT 99; BMI 26.2
--- NOTE | 2025-06-14 09:17 | ED.VIS.BACK ---
HPI History of Present Illness Chief Complaint: Back Informant: patient Onset/Context/Timing Onset: Weeks (1.5) Context: Gradual Onset Timing: Continuous Quality: Aching Location: Lumbar Worsened by: improves with Ambulation Relieved by: Nothing Associated Symptoms Associated Symptoms: Numbness, Tingling, Radiation to Right Leg, Radiation to Left Leg and Abdominal Pain; Negative for Fever, Constipation or Fecal Incontinence Narrative Narrative: Patient presents with back pain that has been getting worse over the past 1-1/2 weeks. states patient has been feeling more weak over the past few days. Patient states his pain is mainly over the lower lumbar area. Patient states it is worse with ambulation. Patient states that the pain radiates down both lower extremities. Patient admits to some numbness and tingling in his lower extremities. states that this is chronic. Patient also admits to cough and abdominal pain. The patient denies any nausea or vomiting. Patient denies any fevers or chills. is concerned that this could be from his hepatic encephalopathy. states patient has been taking his lactulose as prescribed. states that patient has had similar symptoms when his ammonia level has been elevated in the past. Prior similar symptoms: Yes PFSH [facility] Medical History Pleural effusion associated with hepatic disorder ABLA (acute blood loss anemia) Anemia requiring transfusions Atherosclerotic heart disease of [place] coronary artery without angina pectoris Cirrhosis HLD (hyperlipidemia) Other specified cardiac dysrhythmias ESRD (end stage renal disease) on dialysis CKD stage G5/A1, GFR <15 and albumin creatinine ratio <30 mg/g Sepsis Vitamin D insufficiency Polyneuropathy Mild cognitive impairment Epilepsy alf (current) use of 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 History of rheumatic fever as a child COVID-19 Infectious endocarditis Non-ST elevation (NSTEMI) myocardial infarction CAD (coronary artery disease) History of pacemaker Coagulopathy Airway intubation performed without difficulty Cardiopulmonary arrest with successful resuscitation Hypothyroidism (acquired) Abnormal results of thyroid function studies Hyperthyroidism MIA (obstructive sleep apnea) Dyspnea Non-rheumatic mitral regurgitation Non-rheumatic mitral valve stenosis Iron deficiency History of diffuse large B-cell lymphoma Anemia in chronic kidney disease Pure hypercholesterolemia Biventricular cardiac pacemaker in situ (~05/26/16) Encounter for long-term (current) use of high-risk medication 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, 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 TIA (transient ischemic attack) (~11/19/15) History of DVT (deep vein thrombosis) Gout Paroxysmal ventricular tachycardia Atrial flutter Cardiomyopathy in disease classified elsewhere MRSA (methicillin resistant Staphylococcus aureus) infection History of non-Hodgkin's lymphoma Endocarditis due to Staphylococcus Benign essential hypertension Home Medications ?Medication ?Instructions ?Recorded ?Last Taken ?Type levothyroxine 75 mcg tablet 75 mcg PO DAILY thyroid 08/24/21 12/16/24 History vitamin B complex-vitamin C-folic 1 tab PO DAILY vitamin 01/10/22 12/16/24 History acid 0.8 mg tablet (Nephro-Baltazar) doxycycline hyclate 100 mg tablet 100 mg PO BID infection 11/27/22 12/16/24 History fluconazole 200 mg tablet 200 mg PO DAILY 06/11/23 12/16/24 History albuterol sulfate 90 mcg/actuation 2 puff inhalation Q4-6H PRN 03/19/24 Unknown History aerosol inhaler shortness of breath or wheezing cyclobenzaprine 10 mg tablet 10 mg PO BID 05/28/24 12/16/24 History pantoprazole 40 mg tablet,delayed 40 mg PO QAM #90 tabs 12/01/24 12/16/24 Rx release warfarin 1 mg tablet (Jantoven) 1 mg PO .satsun 12/16/24 12/16/24 History warfarin 2 mg tablet 2 mg PO .-sun12/16/24 12/15/24 History amoxicillin 500 mg capsule 2,000 mg PO DAILY PRN DENTAL 12/17/24 Unknown History TREATMENT triamcinolone acetonide 0.1 % 1 applic topical BID PRN SKIN 12/17/24 Unknown History 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 lactulose 10 gram/15 mL oral 20 ml PO QDAY 01/28/25 Unknown History solution (Constulose) metoclopramide HCl 5 mg tablet 2.5 mg (1/2 x 5 mg) PO QAC #50 tabs 03/17/25 Unknown Rx midodrine 10 mg tablet See Rx Instructions PO .COMPLEX To 03/25/25 Unknown History keep BP up during dialysis alprazolam 1 mg tablet (Xanax) 2 mg PO QHS Sleep 05/27/25 Unknown History sucroferric oxyhydroxide 500 mg 500 mg PO QPC 05/27/25 Unknown History chewable tablet (Velphoro) sucroferric oxyhydroxide 500 mg 500 mg PO TID To reduce phosphorus 05/27/25 Unknown History chewable tablet (Velphoro) in blood oxycodone-acetaminophen 5 mg-325 1 tab PO Q6H PRN PRN Pain 3 days 06/14/25 Unknown Rx mg tablet #12 TABLETS Allergy/AdvReac Type Severity Reaction Status Date / Time No Known Allergies Allergy Verified 06/14/25 08:57 Family History Father CAD (coronary artery disease) CABG Brother CAD (coronary artery disease) CABG Mother Diabetes Sister Breast cancer Diabetes Sister Cancer breast Diabetes Surgical History History of esophagogastroduodenoscopy (EGD) History of colonoscopy S/P arteriovenous (AV) fistula repair History of mechanical aortic valve replacement (~08/24/03) History of heart valve replacement with mechanical valve History of atrioventricular chiquita ablation History of heart valve replacement with mechanical valve History of evacuation of hematoma History of cholecystectomy History of appendectomy dual chamber pacemaker implantation (~10/2010) History of aortic valve replacement (~08/2003) History of mitral valve repair (~08/24/03) History of mechanical aortic valve replacement (~1986) Social History household members: spouse housing: house current occupational status: retired current occupational exposures/hazards: No history of recent travel: No Smoking Status: Never smoker alcohol intake: never substance use type: does not use caffeine: No what type of physical activity do you participate in: weight training and other details: Nustep frequency: 3-4 times per week duration: 45-60 minutes/day seatbelt use: always do you feel safe at home: Yes ROS ROS ED Constitutional Constitutional ED: Denies chills or fever(s) Eyes Eyes: Denies blurry vision or change in vision ENT ENT ED: Denies rhinorrhea or sore throat Cardiovascular Cardiovascular: Denies chest pain or palpitations Respiratory/Chest Respiratory/Chest: Reports cough; Denies dyspnea Gastrointestinal Gastrointestinal: Reports abdominal pain; Denies nausea or vomiting Genitourinary Genitourinary ED: Denies dysuria or hematuria Musculoskeletal Musculoskeletal: Reports back pain; Denies neck pain Integumentary Denies abscess or rash Neurologic Neurologic: Reports weakness; Denies headache(s) Allergic/Immunologic Allergic/Immunologic ED: Denies mouth swelling or urticaria EXAM Physical Exam Const Vital Signs: 06/14/25 08:53 06/14/25 12:40 06/14/25 13:45 Temperature 97.6 F L 97.6 F L Temperature Source Oral Pulse Rate 88 70 70 Respiratory Rate 16 18 18 Blood Pressure 124/41 H 110/41 L 120/43 L Blood Pressure Mean 68 64 68 Pulse Ox 99 100 99 Oxygen Delivery Method Room Air Positive well nourished and well developed Constitutional Narrative: BMI is 26.3. General Appearance ED: well developed and NAD HEENT Reports moist mucous membranes Eyes General Eye ED: Negative for scleral icterus Neck supple and no JVD Cardio regular rate and regular rhythm GI soft to palpation and non-distended Palpation: tender epigastric, LLQ, RLQ, LUQ, RUQ and periumbilical; Negative for guarding or rebound tenderness present Extremity normal to inspection Neuro oriented x3 and no sensory deficits noted Neuro Narrative: Strength is 4 out of 5 bilaterally in the lower extremities. Sensorium / Orientation: alert Psych Mood & Affect: depressed Skin no rashes or lesions noted General Skin Exam: Negative for jaundice MDM MDM MDM Narrative Medical decision making narrative: Differential diagnosis includes musculoskeletal back pain, pancreatitis, retroperitoneal hematoma, anemia, bowel obstruction, perforation, hepatic encephalopathy, and coagulopathy. CBC will be obtained to assess for leukocytosis anemia. Comprehensive metabolic profile will be obtained to assess for cardiac function, renal function, electrolyte abnormality. Lipase will be obtained to assess for pancreatitis. Urinalysis will be obtained to assess for urinary tract infection.. Serum ammonia level will be obtained to assess for hepatic encephalopathy. Serum lactate will be obtained to assess for sepsis. CT scan of the abdomen pelvis will be obtained to assess for bowel obstruction, pancreatitis, and retroperitoneal hematoma. History & Record Review Additional record(s) reviewed:: Prior ED visit and Prior labs Lab Data Attestation: I reviewed the patient's lab results. Lab results narrative: CBC was reviewed. There is a mild leukocytosis of 11.5. Hemoglobin was low at 9.5 and hematocrit was 29.9. These are consistent with previous results. Comprehensive metabolic profile was reviewed. BUN was elevated at 49 and creatinine was elevated at 6.37. These are consistent with previous results. Lipase was reviewed and was normal at 43. Serum ammonia level was reviewed and was normal at 45. Serum lactate was reviewed and was less than 1.0. PT with INR and PTT were reviewed. Pro time was 24.2 and INR was therapeutic at 2.1. PTT was elevated at 98.5. This is likely due to the heparin that is administered after dialysis. Labs: Laboratory Results - last 24 hr 06/14/25 06/14/25 09:10 09:57 WBC 11.5 H RBC 3.03 L Hgb 9.5 L Hct 29.9 L MCV 98.7 H MCH 31.4 MCHC 31.8 L RDW Std Deviation 68.3 H RDW Coeff of Jennifer 19.0 H Plt Count 216 MPV 10.2 Immature Gran % (Auto) 0.300 Neut % (Auto) 64.9 Lymph % (Auto) 18.8 L [place] % (Auto) 9.8 Eos % (Auto) 5.6 H Baso % (Auto) 0.6 Absolute Neuts (auto) 7.5 Absolute Lymphs (auto) 2.16 Nucleated RBC % 0 Anisocytosis 1+ PT 24.2 H INR 2.1 APTT 98.5 H* Sodium 136 Potassium 3.7 Chloride 92 L Carbon Dioxide 26.6 Anion Gap 17 H BUN 49 H Creatinine 6.37 H Estim Creat Clear Calc 9.22 L* Est GFR (MDRD) Non-Af 8 L BUN/Creatinine Ratio 7.7 L Glucose 99 Lactic Acid < 1.0 Calcium 9.6 Total Bilirubin 0.67 AST 49 H ALT 20 Alkaline Phosphatase 508 H Ammonia 45.0 Total Protein 7.2 Albumin 3.3 L Globulin 4.0 Albumin/Globulin Ratio 0.8 L Lipase 43 Radiography Diagnostic Testing: Clinical Impression(s) from Imaging Studies Abdomen/Pelvis CT 06/14/25 09:50 IMPRESSION: Mild superior endplate compression of L3 which is new since the prior CT. Mildly irregular hepatic surface contour in the setting of hepatomegaly may represent early fibrotic change. Consider elastography. Constipation. Reading Location: [facility] CT scan of the abdomen and pelvis was obtained. There is a mild superior endplate compression of L3 which is new compared to previous CT scan. There is constipation noted. There is early fibrotic changes of the liver. This was interpreted by the radiologist and was also independently reviewed by myself. EKG Initial EKG: Interpretation: Paced (71) and LBBB Comments: EKG was obtained. On my independent interpretation, it showed a paced rhythm with a rate of 71. QRS interval was prolonged at 152 ms. QTc interval was prolonged at 556 ms. There is extreme right axis deviation at 213. There is a left bundle branch block pattern noted. There are no acute ST or T wave changes noted. Prior EKG tracings: available for review Prior: Unchanged (02/12/2025) Treatment and Re-Evaluation Narrative: Patient was given a dose of Zofran here. Patient and spouse were advised of his findings. Patient was able to ambulate here in the emergency department without difficulty. Patient felt comfortable going home. Patient was given a prescription for a short course of Percocet. Patient was instructed to follow-up with his primary care physician in 5 to 7 days. Patient and spouse understood and were agreeable with the plan. All questions were answered. Discharge Plan Triage Chief Complaint: Back ED Provider: Pako Mendoza Dx/Rx/DC Orders Clinical Impression: Acute low back pain, ESRD (end stage renal disease) on dialysis, Benign essential hypertension Instructions: ED Back Pain (Acute or Chronic) Prescriptions: New oxycodone-acetaminophen 5-325 mg tablet 1 tab PO Q6H PRN PRN (Reason: Pain) 3 Days Qty: 12 0RF No Action alprazolam [Xanax] 1 mg tablet 2 mg PO QHS doxycycline hyclate 100 mg tablet 100 mg PO BID fluconazole 200 mg tablet 200 mg PO DAILY cyclobenzaprine 10 mg tablet 10 mg PO BID Velphoro 500 mg tablet,chewable 500 mg PO QPC Rx Instructions: WITH EACH MEAL albuterol sulfate 90 mcg/actuation HFA aerosol inhaler 2 puff inhalation Q4-6H PRN (Reason: shortness of breath or wheezing) Patient Comments: pt hasnt taken in over year metoclopramide HCl 5 mg tablet 2.5 mg PO QAC Qty: 50 1RF Rx Instructions: administer 30 minutes before meals midodrine 10 mg tablet See Rx Instructions PO .COMPLEX Patient Comments: Take up to 4 tabs on dialysis days Rx Instructions: orally; up to 4 tabs on dialysis days (-) Velphoro 500 mg tablet,chewable 500 mg PO TID levothyroxine 75 mcg tablet 75 mcg PO DAILY Nephro-Baltazar 0.8 mg tablet 1 tab PO DAILY warfarin [Jantoven] 1 mg tablet 1 mg PO .sun Protocol: Dose Management Condition: Sunday Dose/Route: 2 mg Instruction: 1 x 2 mg tablet Condition: Sunday Dose/Route: 1 mg Instruction: 1 x 1 mg tablet Condition: Sunday Dose/Route: 1 mg Instruction: 1 x 1 mg tablet Condition: Sunday Dose/Route: 1 mg Instruction: 1 x 1 mg tablet Condition: Dose/Route: 1 mg Instruction: 1 x 1 mg tablet Condition: Sunday Dose/Route: 1 mg Instruction: 1 x 1 mg tablet Condition: Sunday Dose/Route: 2 mg Instruction: 1 x 2 mg tablet Protocol Text: Adjustment Start Date: 06/11/25 INR Value: 2.5 INR Date: 06/11/25 Recheck Date: 06/15/25 Patient Comments: BASED ON INR warfarin 2 mg tablet 2 mg PO . Protocol: Dose Management Condition: Sunday Dose/Route: 2 mg Instruction: 1 x 2 mg tablet Condition: Sunday Dose/Route: 1 mg Instruction: 1 x 1 mg tablet Condition: Sunday Dose/Route: 1 mg Instruction: 1 x 1 mg tablet Condition: Sunday Dose/Route: 1 mg Instruction: 1 x 1 mg tablet Condition: Dose/Route: 1 mg Instruction: 1 x 1 mg tablet Condition: Sunday Dose/Route: 1 mg Instruction: 1 x 1 mg tablet Condition: Sunday Dose/Route: 2 mg Instruction: 1 x 2 mg tablet Protocol Text: Adjustment Start Date: 06/11/25 INR Value: 2.5 INR Date: 06/11/25 Recheck Date: 06/15/25 Patient Comments: BASED ON INR lactulose [Constulose] 10 gram/15 mL solution 20 ml PO QDAY amoxicillin 500 mg capsule 2,000 mg PO DAILY PRN (Reason: DENTAL TREATMENT) Rx Instructions: TAKE 1 HOUR PRIOR TO TREATMENT triamcinolone acetonide 0.1 % lotion 1 applic topical BID PRN (Reason: SKIN 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) pantoprazole 40 mg tablet,delayed release (DR/EC) 40 mg PO QAM Qty: 90 3RF Primary Care Provider: David Menjivar Referrals: David Menjivar DO [Primary Care Provider] - 3-5 Days Print Language: [place]ese Disposition Disposition: Home, Self Care
--- OUTSIDE RECORDS SUMMARY | 2025-06-14 09:31 | XMS RPT_ITS | CCD ---
Author Organization [facility] Care Team Providers Care Wood Science Professor Name Role Phone GIO Cohen, Meron Goldberg Unavailable Unavailabl e GIO Cohen, Meron Goldberg Unavailable Unavailabl e PROVIDER, UNKNOWN Admitting Unavailable PROVIDER, UNKNOWN Attending Unavailable PROVIDER, UNKNOWN Admitting Unavailable PROVIDER, UNKNOWN Attending Unavailable Dr. Vinny Atkinson Primary Care Provider Dr. Vinny Atkinson Referring Provider Linda DRYWALL SANDER, DRYWALL SANDER-C Esa Norwood Attending Provider Isis Arce Attending Provider Unavailable Dr. Ford Wen Attending Provider Dr. Ford Wen Referring Provider MD Sharron Calderon Referring Provider Unavailable Dr. Timmy Miranda Attending Provider Dr. Lenora Victoria Referring Provider [phone] Dr. Marquis Gomes Emergency Provider Dr. Lenora Victoria Admit Provider Dr. Ford March Other Provider Dr. Jd Weeks Attending Provider Dr. Jd Weeks Other Provider Dr. Sharron Calderon Other Provider Dr. Siddharth Chowdhury Other Provider Dr. Siddharth Chowdhury Attending Provider [phone] Alejandra BUSTOS, JULI-C Sue Attending Provider Alejandra BUSTOS, JULI-C Sue Referring Provider [phone] Alejandra BUSTOS, DRYWALL SANDER-C Sue Other Provider Dr. Isaac Min Attending Provider Dr. Vinny Atkinson Primary Care Provider Dr. Vinny Atkinson Referring Provider Isis Arce Attending Provider Unavailable Jeff Grullon MD Unavailable Vinny Atkinson MD Primary Care Provider [facility] MB/Karthikeyan KAMARA Unavailable Sharron Calderon DO Unavailable Isaac Min MD Unavailable Dr. Jodi Friedman Emergency Provider Dr. Adriel Peralta Admit Provider Unavailable Fabian, Dr. Morel Attending Provider Unavailable Fabian, Dr. Morel Other Provider Unavailable Dr. Rolo Mireles Other Provider Norm, Dr. Gates Attending Provider Dr. Vinny Atkinson Primary Care Provider Dr. Ford Wen Attending Provider Dr. Vinny Atkinson Primary Care Provider Dr. Vinny Atkinson Referring Provider Dr. Sharron Calderon Other Provider Dr. Adriel Peralta Referring Provider Unavailable Dr. Timmy Miranda Attending Provider Jeff Grullon MD Unavailable Dr. Vinny Atkinson Primary Care Provider Dr. Vinny Atkinson Referring Provider Isis Arce Attending Provider Unavailable Dr. Isaac Min Attending Provider Dr. Karthikeyan Turner Attending Provider Dr. Eliazar Jeff Emergency Provider Dr. Nayeli Calderon Admit Provider Dr. Nayeli Calderon Attending Provider Dr. Nayeli Calderon Other Provider Dr. Pako Valadez Other Provider Dr. Lenora Victoria Attending Provider Dr. Pako Valadez Attending Provider Dr. Vinny Atkinson Primary Care Provider Dr. Jodi Friedman Emergency Provider Dr. Adriel Peralta Admit Provider Unavailable Fabian, Dr. Morel Attending Provider Unavailable Fabian, Dr. Morel Other Provider Unavailable Dr. Ajith Mireles Other Provider Dr. Sharron Calderon Other Provider Dr. Jeff Grullon Attending Provider Dr. Nayeli Calderon Referring Provider Dr. Pako Valadez Referring Provider Dr. Kody Zheng Attending Provider Dr. Pako Valadez Attending Provider Dr. Vinny Atkinson Primary Care Provider Dr. Sharron Calderon Other Provider Dr. Vinny Atkinson Primary Care Provider Dr. Vinny Atkinson Referring Provider Dr. Vinny Atkinson Referring Provider Best DRYWALL SANDER, DRYWALL SANDER-C Deja Goldberg Attending Provider [phone] Dr. Castro Ferrara Primary Care Provider Dr. Timmy Miranda Attending Provider Dr. Jeff Grullon Attending Provider Isis Arce Attending Provider Unavailable Jeff Grullon MD Unavailable Vinny Atkinson MD Primary Care Provider Johnny JACK/CHB, Karthikeyan Unavailable Sharron Calderon DO Unavailable Isaac Min MD Unavailable MD Claudio Garrison Emergency Provider Dr. Karthikeyan Rothman Admit Provider Dr. Karthikeyan Rothman Attending Provider Dr. Karthikeyan Rothman Other Provider Dr. Kody Zheng Attending Provider [phone] Dr. Kody Zheng Other Provider [phone] Sharron Calderon Other Provider Dr. Mimi Centeno Other Provider Dr. Mimi Centeno Attending Provider Dr. Vinny Atkinson Referring Provider 1([facility][phone] Timmy Miranda Attending Provider 1([facility])[phone] Dr. Castro Ferrara Primary Care Provider 1([facility])[phone] Jeff Grullon Attending Provider [phone] MD Claudio Garrison Emergency Provider Dr. Karthikeyan Rothman Admit Provider Dr. Karthikeyan Rothman Attending Provider Dr. Karthikeyan Rothman Other Provider Dr. Kody Zheng Attending Provider 1([facility][phone] Dr. Kody Zheng Other Provider 1([facility])[phone] Sharron Calderon Other Provider Dr. Mimi Centeno Other Provider Dr. Mimi Centeno Attending Provider Dr. Castro Ferrara Attending Provider Dr. Vinny Atkinson Referring Provider Dr. Castro Ferrara Primary Care Provider Dr. Mimi Centeno Referring Provider 1([facility])[phone] Castro Ferrara Referring Provider Dr. Niels Flores Attending Provider Alejandra BUSTOS, JULI-Eileen Rogers Attending Provider Castro Ferrara DO Primary Care Provider Dr. Castro Ferrara Primary Care Provider Dr. Jeff Grullon Attending Provider Best BUSTOS, JULI-Eileen Goldberg Attending Provider [phone] Dr. Ford Wen Attending Provider Dr. Ford Wen Referring Provider Dr. Ford Wen Other Provider Dr. Castro Ferrara Primary Care Provider [phone] Dr. Jeff Grullon Attending Provider MD Claudio Garrison Emergency Provider Dr. Karthikeyan Rothman Admit Provider Dr. Karthikeyan Rothman Attending Provider Dr. Karthikeyan Rothman Other Provider Dr. Kody Zheng Attending Provider [phone] Dr. Kody Zheng Other Provider [phone] Sharron Calderon Other Provider Dr. Mimi Centeno Referring Provider Dr. Mimi Centeno Other Provider Dr. Mimi Centeno Attending Provider Dr. Castro Ferrara Attending Provider Dr. Castro Ferrara Referring Provider Dr. Niels Flores Attending Provider [phone] AMY Roberts NP Attending Provider AMY Jewell NP Attending Provider [phone] Dr. Ford Wen Attending Provider Dr. Ford Wen Referring Provider [phone] Dr. Ford Wen Other Provider Dr. Castro Ferrara Primary Care Provider MD Claudio Garrison Emergency Provider Dr. Karthikeyan Rothman Admit Provider Dr. aKrthikeyan Rothman Other Provider Norm, Dr. Gates Other Provider Dr. Sharron Calderon Other Provider Dr. Mimi Centeno Other Provider Norm, Dr. Gates Attending Provider [phone] Mimi Centeno Referring Provider Bertha KEMP, PASamantaC Trina Attending Provider Dr. Timmy Miranda Attending Provider Aniya Box Attending Provider Unavailable Mitchel NIX, Jeff Roberts Unavailable Morgan GUERO/CHBKarthikeyan Unavailable Sharron Calderon DO Unavailable Isaac Min MD Unavailable Castro Ferrara DO Primary Care Provider Dr. Castro Ferrara Primary Care Provider [phone] Dr. Castro Ferrara Attending Provider [phone] Castro Ferrara Referring Provider Dr. Karthikeyan Turner Attending Provider Linda DRYWALL SANDER, DRYWALL SANDER-Eileen Norwood Attending Provider Dr. Castro Ferrara Primary Care Provider [phone] Dr. Castro Ferrara Attending Provider [phone] Castro Ferrara Referring Provider Dr. Castro Ferrara Primary Care Provider [phone] Dr. Castro Ferrara Referring Provider [phone] Roof DRYWALL SANDER, DRYWALL SANDER-C Esa Norwood Attending Provider Dr. Castro Ferrara Attending Provider Dr. Timmy Miranda Attending Provider Isis Arce Attending Provider Unavailable Dr. Isaac Min Attending Provider Dr. Castro Ferrara Primary Care Provider Dr. Castro Ferrara Attending Provider Dr. Castro Ferrara Referring Provider Dr. Niels Flores Attending Provider Roof DRYWALL SANDER, DRYWALL SANDER-C Esa Norwood Attending Provider Mitchel NIX, Jeff Roberts Unavailable Karthikeyan Turner MD Unavailable Niels Flores MD Unavailable Dr. Castro Ferrara DO Primary Care Provider Dr. Castro Ferrara DO Attending Provider Dr. Castro Ferrara DO Referring Provider Dr. Timmy Miranda MD Attending Provider Dr. Timmy Miranda MD Referring Provider [phone] Dr. Diego Reaves DO Attending Provider Dr. Diego Reaves DO Emergency Provider Dr. Diego Reaves DO Referring Provider Dr. Alonso Abdullahi MD Attending Provider Dr. Marquis Gomes DO Attending Provider Dr. Marquis Gomes DO Emergency Provider KELBY CHANCE Attending Provider KELBY CHANCE Referring Provider Dr. Sharron Calderon DO Attending Provider Dr. Sharron Calderon DO Referring Provider Dr. Niels Flores MD Attending Provider [phone] Isis Arce Attending Provider Unavailable Linda DRYWALL SANDER-C, Esa Norwood Attending Provider Jomar LOPEZ, Dr. Linn Emergency Provider [phone] Karthikeyan Turner MD Unavailable Kvng LOPEZ, Sharron Unavailable Isaac Min MD Unavailable Unavailable Josias LOPEZ, Castro Clemons Primary Care Provider Raymundo Flores MD, Niels Ortega Unavailable Unavailable Josias LOPEZ, Dr. Hernandez Primary Care Provider Josias LOPEZ, Dr. Hernandez Attending Provider Josias LOPEZ, Dr. Hernandez Referring Provider Jomar LOPEZ, Dr. Linn Attending Provider Paulino DRYWALL SANDER-C, Vaishnavi Attending Provider [phone] Paulino DRYWALL SANDER-C, Vaishnavi Referring Provider Alejandra DRYWALL SANDER-C, Sue Attending Provider Josias LOPEZ, Dr. Hernandez Primary Care Provider Josias LOPEZ, Dr. Hernandez Attending Provider Alejandra DRYWALL SANDER-C, Sue Referring Provider Paulino DRYWALL SANDER-C, Vaishnavi Other Provider [phone] Kvng LOPEZ, Sharron Unavailable Isaac Min MD Unavailable Castro Ferrara DO Primary Care Provider Niels Flores MD Unavailable RIKA CASTRO Attending Unavailable CARLY MANE Admitting Unavailable CONSULT, IP TO NEPHROLOGY [facility] Consulti ng Unavailable CASTRO FERRARA A Primary Care Unavailable MARQUIS GOMES Referring Unavailable SELF, SELF Referring Unavailable CASTRO FERRARA Primary Care Unavailable KELBY CHANCE Attending Unavailable SELF, SELF Referring Unavailable VAISHNAVI FRY Attending Unavailable CASTRO FERRARA Primary Care Unavailable SELF, SELF Referring Unavailable CASTRO FERRARA Primary Care Unavailable KELBY CHANCE Attending Unavailable KAVEH HADLEY Referring Unavailable JOSIAS, CASTRO A Primary Care Unavailable CONSULT, NEPHROLOGY Consulting Unavailable NAYELI CASILLAS Admitting Unavailable HODA MOORE Attending Unavailable Josias LOPEZ, Dr. Hernandez Primary Care Provider Josias DO, Dr. Hernandez Attending Provider Yrn NIX, Dr. Currie Emergency Provider Josias DO, Dr. Hernandez Primary Care Provider Josias DO, Dr. Hernandez Attending Provider Yrn NIX, Dr. Currie Attending Provider Josias DO, Dr. Hernandez Primary Care Provider Josias DO, Dr. Hernandez Attending Provider [facility], Dr. Miles Attending Provider Johnny NIX, Dr. Napier Attending Provider Demetrio NIX, Dr. Casillas Primary Care Provider Unava ilable Demetrio NIX, Dr. Casillas Referring Provider Unavaila rebecca Grullon MD, Dr. Aguilar Other Provider Marquis Gomes Attending Unavailable Josias, Castro Primary Care Unavailable Vaishnavi Bob Referring Unavailable Josias, Castro Primary Care Unavailable Vaishnavi Bob Attending Unavailable Josias, Castro Attending Unavailable Josias, Castro Referring Unavailable Josias, Castro Primary Care Unavailable Timmy Miranda Referring Unavailable Timmy Miranda Attending Unavailable Josias, Castro Primary Care Unavailable Josias, Castro Primary Care Unavailable Josias, Castro Attending Unavailable Josias, Castro Primary Care Unavailable Josias, Castro Attending Unavailable Josias, Castro Primary Care Unavailable Josias, Castro Attending Unavailable Josias, Castro Primary Care Unavailable Josias, Castro Attending Unavailable Josias, Castro Primary Care Unavailable Josias, Castro Attending Unavailable Josias, Castro Attending Unavailable Josias, Castro Primary Care Unavailable Josias, Castro Attending Unavailable Josias, Castro Primary Care Unavailable Josias, Castro Primary Care Unavailable Josias, Castro Attending Unavailable Esa Ansari Referring Unavailable Josias, Castro Primary Care Unavailable Esa Ansari Attending Unavailable Alejandra DRYWALL SANDER, Sue Referring Unavailable Roberts DRYWALL SANDER, Sue Consulting Unavailable Josias, Castro Primary Care Unavailable Castro Ferrara Attending Unavailable Alejandra DRYWALL SANDER, Sue Referring Unavailable Vaishnavi Bob Consulting Unavailable Josias, Castro Primary Care Unavailable Alejandra DRYWALL SANDER, Sue Attending Unavailable Demetrio, Vinny Referring Unavailable Karthikeyan Turner Attending Unavailable Demetrio, Vinny Primary Care Unavailable Jeff Grullon Consulting Unavailable Jane Jhaveri Referring Unavail able Josias, Castro Primary Care Unavailable Jane Jhaveri Attending Unavail able Vaishnavi Bob Referring Unavailable Vaishnavi Bob Attending Unavailable Josias, Castro Primary Care Unavailable Josias, Castro Primary Care Unavailable Josias, Castro Attending Unavailable Josias, Castro Primary Care Unavailable Josias Castro Attending Unavailable Josias, Castro Primary Care Unavailable JosiasCastro Attending Unavailable Josias, Castro Primary Care Unavailable JosiasCastro Attending Unavailable Josias, Castro Attending Unavailable Josias, Castro Primary Care Unavailable JosiasCastro Attending Unavailable Josias, Castro Primary Care Unavailable JosiasCastro Attending Unavailable Josias, Castro Primary Care Unavailable Josias, Castro Attending Unavailable Josias, Castro Primary Care Unavailable Josias, Castro Attending Unavailable Josias, Castro Primary Care Unavailable Josias, Castro Attending Unavailable Josias, Castro Primary Care Unavailable Josias Castro Attending Unavailable Josias, Castro Primary Care Unavailable Josias, Castro Attending Unavailable Josias, Castro Primary Care Unavailable JosiasCastro Attending Unavailable Josias, Castro Primary Care Unavailable JosiasCastro Attending Unavailable Josias, Castro Primary Care Unavailable JosiasCastro Attending Unavailable Josias, Castro Primary Care Unavailable JosiasCastro Attending Unavailable Josias, Castro Primary Care Unavailable JosiasCastro Attending Unavailable Josias, Castro Primary Care Unavailable Josias, Castro Referring Unavailable Isis Arce Attending Unavailable Josias, Castro Primary Care Unavailable Josias Castro Referring Unavailable Esa Mckeon NP Attending Unavailable Josias, Castro Primary Care Unavailable Vaishnavi Bob Attending Unavailable JosiasCastro Referring Unavailable Josias, Castro Primary Care Unavailable Josias, Castro Primary Care Unavailable Niels Flores Attending Unavailable Josias, Castro Primary Care Unavailable Niels Flores Attending Unavailable Josias, Castro Primary Care Unavailable Niels Flores Attending Unavailable JosiasCastro Referring Unavailable Timmy Miranda Attending Unavailable Josias, Castro Referring Unavailable Josias, Castro Primary Care Unavailable Karthikeyan Turner Attending Unavailable Josias, Castro Primary Care Unavailable Josias, Castro Referring Unavailable Josias, Castro Primary Care Unavailable JosiasCastro Attending Unavailable Josias, Castro Primary Care Unavailable JosiasCastro Attending Unavailable Josias, Castro Primary Care Unavailable JosiasCastro Attending Unavailable Josias, Castro Primary Care Unavailable JosiasCastro Attending Unavailable Alejandra DRYWALL SANDER, Sue Referring Unavailable Josias, Castro Primary Care Unavailable Jd Weeks Attending Unavailable Josias, Castro Primary Care Unavailable JosiasCastro parra Attending Unavailable Josias, Castro Primary Care Unavailable JosiasCastro parra Attending Unavailable JosiasCastro moy Attending Unavailable Josias, Castro Primary Care Unavailable Esa Ansari Attending Unavailable Esa Ansari Referring Unavailable Josias, Castro Primary Care Unavailable Josias, Castro Primary Care Unavailable JosiasCastro parra Referring Unavailable JosiasCastro parra Attending Unavailable Diego Reaves Attending Unavailable Josias, Castro Primary Care Unavailable JosiasCastro moy Attending Unavailable JosiasCastro Referring Unavailable Josias, Castro Primary Care Unavailable Josias, Castro Primary Care Unavailable Niels Flores Attending Unavailable Josias, Castro Referring Unavailable Alejandra DRYWALL SANDER, Sue Attending Unavailable Josias, Castro Primary Care Unavailable JosiasCastro Referring Unavailable JosiasCastro parra Attending Unavailable JosiasCastro Primary Care Unavailable JosiasCastro parra Primary Care Unavailable JosiasCastro parra Attending Unavailable Josias, Castro Primary Care Unavailable Kush Pool Attending Unavailable Josias, Castro Primary Care Unavailable JosiasCastro moy Attending Unavailable Josias, Castro Primary Care Unavailable JosiasCastro parra Attending Unavailable JosiasCastro Primary Care Unavailable JosiasCastro parra Attending Unavailable Josias, Castro Primary Care Unavailable JosiasCastro parra Attending Unavailable Josias, Castro Primary Care Unavailable JosiasCastro parar Attending Unavailable Josias, Castro Primary Care Unavailable JosiasCastro moy Attending Unavailable JosiasCastro Attending Unavailable JosiasCastro Primary Care Unavailable JosiasCastro Attending Unavailable Josias, Castro Primary Care Unavailable Josias, Castro Primary Care Unavailable JosiasCastro parra Attending Unavailable Josias, Castro Primary Care Unavailable JosiasCastro parra Attending Unavailable Josias, Castro Primary Care Unavailable Josias, Castro Attending Unavailable Josias, Castro Attending Unavailable Josias, Castro Primary Care Unavailable Josias, Castro Attending Unavailable Josias, Acstro Primary Care Unavailable Josias, Castro Attending Unavailable Josias, Castro Primary Care Unavailable Josias, Castro Primary Care Unavailable Josias, Castro Attending Unavailable Josias, Castro Primary Care Unavailable Josias, Castro Attending Unavailable Josias, Castro Primary Care Unavailable Josias, Castro Attending Unavailable Josias, Castro Primary Care Unavailable Josias, Castro Attending Unavailable Josias, Castro Primary Care Unavailable Josias, Castro Attending Unavailable Josias, Castro Primary Care Unavailable Josias, Castro Attending Unavailable Josias, Castro Primary Care Unavailable Josias, Castro Attending Unavailable Josias, Castro Primary Care Unavailable Josias, Castro Attending Unavailable Josias, Castro Primary Care Unavailable Josias, Castro Attending Unavailable Josias, Castro Primary Care Unavailable Josias, Castro Attending Unavailable Diego Reaves Referring Unavailable Alonso Abdullahi Attending Unavailable Josias, Castro Primary Care Unavailable Josias, Castro Attending Unavailable Josias, Castro Primary Care Unavailable Josias, Castro Primary Care Unavailable Josias, Castro Attending Unavailable Josias, Castro Primary Care Unavailable Josias, Castro Attending Unavailable Josias, Castro Primary Care Unavailable Josias, Castro Attending Unavailable Sharron Calderon Referring Unavailable Sharron Calderon Attending Unavailable Josias, Castro Primary Care Unavailable Josias, Castro Primary Care Unavailable Kaveh Hadley Attending Unavailable Allergies Allergy Classification Reported Allergen(s) Allergy Type Date of Onset Reaction(s) Facility (2 sources) NKDA drug allergy 04-24-2013 [facility] Work Phone: (2 sources) NKA drug allergy 04-24-2013 [facility] Work Phone: Medications Current Medications Medication Drug Class(es) Dates Sig (Normalized) Sig (Original) ALPRAZolam 1 mg oral tablet (20 sources) Benzodiazepine Start: 12-18-2024 End: 12-19-2024 take 1 mg by mouth once daily at bedtime 1 mg, Oral, DAILY AT BEDTIME, First dose on Sun12/18/24 at 2100, Until Discontinued Start: 01-18-2024 End: 03-06-2025 Start: 01-05-2023 take 1 tablet by dyana th at bedtime for sleep ALPRAZolam 1 MG tablet take 1 tablet by mouth at bedtime for sleep 0 01/05/2023 Active Start: 02-01-2022 take 0.5 mg by mouth at bedtime Alprazolam (Xanax) 1 mg tablet Active 0.5 MG PO AT BEDTIME February 01, 2022 7:48am Start: 01-09-2022 End: 05-27-2025 End: 04-02-2024 take 1 tablet by mouth at bedtime as needed for anxiety ALPRAZolam 0.5 MG tablet Take 1 tablet by mouth At bedtime as needed for Anxiety. 04/02/2024 Discontinued (Medication Reconciliation (suppress cancel msg)) amoxicillin 500 mg oral caps ule (20 sources) Penicillin-class Antibacterial Start: 12-17-2024 Start: 03-27-2023 End: 12-12-2023 Start: 04-08-2022 End: 04-24-2022 Start: 04-08-2022 End: 04-24-2022 take 500 mg by mouth three times daily Amoxicillin Discontinued 500 MG PO THREE TIMES A DAY 9 April 07, 2022 11:00pm April 24, 2022 1:04pm B Xzeusak-C-Ihpgv Acid (NEPHRO-BALTAZAR PO) (11 sources) take 1 tablet by dyana th at bedtime B Bfuipyn-Q-Slmwd Acid (NEPHRO-BALTAZAR PO) Take 1 tablet by mouth at bedtime. Active B Oqwejrq-R-Tegq c Acid (NEPHRO-BALTAZAR PO) Take by mouth. Active B Ycgfggj-C-Bgod c Acid (NEPHRO-BALTAZAR PO) Take by mouth. 0 Active B Complex-Vitamin C-Folic Acid (Nephro-Baltazar) 0.8 mg tablet (20 sources) Start: 01-10-2022 take 1 tablet by mouth once daily B Complex-Vitamin C-Folic Acid (Nephro-Baltazar) 0.8 mg tablet Active 1 TABLET PO DAILY January 10, 2022 12:55pm Start: 01-10-2022 take 1 tablet by dyana th once daily B Complex-Vitamin C-Folic Acid (Nephro-Baltazar) 0.8 mg tablet Active 1 TABLET PO DAILY January 10, 2022 12:00am Start: 01-10-2022 take 1 tablet by dyana th once daily B Complex-Vitamin C-Folic Acid (Nephro-Baltazar) 0.8 mg tablet Active 1 TABLET PO DAILY January 10, 2022 1:00am cyclobenzaprine hydrochlorid e 10 mg oral tablet (20 sources) Muscle Relaxant Start: 12-12-2023 End: 03-06-2025 Start: 12-12-2023 take 10 mg by mouth once daily Cyclobenzaprine Active 10 MG PO DAILY December 12, 2023 12:00am Start: 11-27-2022 End: 10-29-2023 Start: 11-27-2022 End: 10-29-2023 take 10 mg by mouth twice daily as needed Cyclobenzaprine Discontinued 10 MG PO TWICE DAILY NEEDED November 27, 2022 12:00am October 29, 2023 6:11pm Start: 11-27-2022 take 10 mg by mouth once daily Cyclobenzaprine Active 10 MG PO DAILY November 27, 2022 12:00am Start: 12-31-2018 End: 10-31-2021 Start: 09-03-2018 End: 11-21-2018 Start: 09-03-2018 End: 11-21-2018 take 10 mg by mouth once daily Cyclobenzaprine Discontinued 10 MG PO DAILY September 02, 2018 11:00pm November 21, 2018 3:07pm take 1 tablet by dyana th every eight hours as needed Cyclobenzaprine 10 MG tablet Take 1 tablet by mouth Every 8 hours as needed. Active fluconazole 200 mg oral tabl et (20 sources) Azole Antifungal Start: 02-15-2025 End: 03-06-2025 Start: 02-13-2025 End: 02-14-2025 Start: 10-20-2021 End: 03-06-2025 furosemide 40 mg oral tablet (20 sources) Loop Diuretic Start: 01-12-2022 take 40 mg by mouth once daily Furosemide Active 40 MG PO DAILY January 12, 2022 1:27pm Hold if systolic blood pressure less than 100 mmHg Start: 11-01-2017 End: 10-31-2021 Start: 05-07-2017 End: 01-18-2018 Start: 05-12-2013 End: 06-29-2016 take 1 tablet by mouth twice daily LASIX 40 MG TABS One tablet by mouth twice daily FUROSEMIDE [id number] Jeff Grullon MD Start: 04-24-2013 End: 02-19-2017 take 1 tablet by mouth once daily as needed LASIX 40 MG TABS One tablet by mouth daily as needed FUROSEMIDE [id number] Patience Mccracken LPN Start: 12-05-2011 End: 01-15-2023 take 1 tablet by mouth twice daily LASIX 20 MG TABS One tablet by mouth twice daily FUROSEMIDE [id number] Oswaldo Ken MD Start: 05-01-2011 take 1 tablet by dyana th once daily LASIX 20 MG TABS One tablet by mouth daily FUROSEMIDE [id number] Philly Molina hydrOXYzine hydrochloride 25 mg oral tablet (5 sources) Antihistamine Start: 04-15-2025 take 1 tablet by mouth three times daily as needed hydrOXYzine HCl 25 MG tablet Take 1 tablet by mouth 3 times daily as needed for Itching. 30 tablet 2 04/15/2025 Active Start: 02-19-2025 End: 03-06-2025 Methoxy PEG-Epoetin Beta (MIRCERA IJ) (1 source) Start: 12-28-2022 Methoxy PEG-Ep oetin Beta (MIRCERA IJ) Inject 200 mcg under the skin. 0 12/28/2022 Active metoclopramide 5 mg oral tablet (6 sources) Dopamine-2 Receptor Antagonist Start: 03-17-2025 midodrine hydrochloride 10 mg oral tablet (20 sources) alpha-Adrenergic Agonist Start: 02-16-2025 End: 03-06-2025 Start: 12-18-2024 End: 12-19-2024 10 mg, Oral, ONCE DIRECTE D, 1 dose, Starting on Sun12/19/24 at 1018, Until Sun12/19/24 at 1239, Other, Administer 30 minutes prior to scheduled dialysis Start: 06-25-2023 Midodrine HCl 10 MG tablet Take 1 tablet by mouth. 1 Tablet Sunday, Sunday, Sunday 2 Tablets Sun And Sun06/25/2023 Active Start: 06-04-2023 End: 03-25-2025 Start: 06-04-2023 End: 06-11-2023 take 1 dose by mouth once daily at bedtime Midodrine Discontinued 10 MG PO THREE TIMES A DAY June 03, 2023 11:00pm June 11, 2023 9:19am do not give last dose of day after 6PM or within 4 hrs of bedtime sucroferric oxyhydroxide 500 mg chewable tablet (20 sources) Start: 12-12-2023 End: 05-27-2025 Start: 08-16-2022 End: 02-24-2025 take 500 mg by mouth twice daily at mealtime Sucroferric Oxyhydroxide (VELPHORO PO) Take 500 mg by mouth 2 times daily. With each meal Active take 500 mg by mouth twice daily at mealtime Sucroferric Oxyhydroxide (VELPHORO PO) Take 500 mg by mouth 2 times daily. With each meal 0 Active triamcinolone acetonide 1 mg /ml topical lotion (6 sources) Corticosteroid Start: 12-17-2024 warfarin sodium 2 mg oral ta blet (20 sources) Vitamin K Antagonist Start: 03-04-2025 End: 03-05-2025 Start: 03-02-2025 End: 03-04-2025 Start: 12-16-2024 Start: 12-12-2023 End: 12-12-2023 Warfarin Active 4 MG PO .COM PLEX 90 December 12, 2023 12:03pm 4 mg orally as directed; Start: 06-06-2023 End: 03-06-2025 Start: 02-22-2023 End: 05-28-2024 Start: 01-17-2023 End: 05-28-2024 Start: 01-17-2023 End: 10-29-2023 Start: 09-14-2022 End: 05-28-2024 Start: 07-15-2022 End: 07-18-2022 Warfarin Discontinued 6 MG P O WETH July 15, 2022 5:51pm July 18, 2022 9:48am 1 mg PO as directed for adjustement of INR up or down; Start: 04-26-2022 End: 01-17-2023 Start: 10-31-2021 End: 07-18-2022 Start: 10-31-2021 End: 02-01-2022 Start: 10-31-2021 End: 07-18-2022 Start: 10-31-2021 End: 04-26-2022 Warfarin Discontinued 4 MG P O .COMPLEX 0 April 06, 2022 9:59am April 26, 2022 11:28am 4 mg PO MOTUWETHSA, 2 mg on Sunday and Sunday; Patient to hold Coumadin on 04/06/2022, INR to be performed on 04/07/2022 and if less than 3.5 patient to resume Coumadin Start: 10-31-2021 End: 02-01-2022 Warfarin Discontinued 2 MG P O SUTHFRSA October 31, 2021 12:00am February 01, 2022 7:53am Start: 10-20-2021 take 6 tablets by mo uth once daily in the evening warfarin 1 MG tablet Take 6 tablets by mouth every evening at 6 PM. 180 tablet 0 10/20/2021 Active Start: 06-28-2021 End: 10-31-2021 take 1 tablet by mouth once daily at dinner Warfarin Discontinued 6 MG PO WITH DINNER June 28, 2021 2:36pm October 31, 2021 2:09pm TAKE ONE TABLET DAILY- CURRENT DOSE IS 7 MG DAILY. OR OTHERWISE INSTRUCTED. Start: 05-06-2021 End: 06-28-2021 Warfarin Discontinued 0 MG . ROUTE .COMPLEX 90 May 06, 2021 7:40am June 28, 2021 2:36pm TAKE ONE TABLET DAILY- CURRENT DOSE IS 7 MG DAILY. OR OTHERWISE INSTRUCTED. Start: 03-24-2021 End: 10-31-2021 Start: 03-24-2021 End: 05-06-2021 take 6 mg by mouth once daily Warfarin Discontinued 6 MG PO DAILY March 23, 2021 11:00pm May 06, 2021 7:40am Start: 11-15-2020 End: 11-16-2020 Start: 10-27-2020 End: 03-24-2021 take 7 mg by mouth once daily Warfarin Discontinued 1 MG PO DAILY October 27, 2020 12:00am March 24, 2021 1:59pm PT CURRENTLY TAKING 7 MG DAILY Start: 10-27-2020 End: 12-01-2020 take 7 mg by mouth once daily Warfarin Sodium (Jantove n) 6 MG tablet Discontinued 6 MG PO DAILY October 27, 2020 12:00am December 01, 2020 1:02pm PT CURRENTLY TAKING 7 MG DAILY Start: 01-27-2019 End: 01-29-2020 take 1 tablet by mouth once daily Warfarin Discontinued 6 MG PO DAILY January 27, 2019 9:40am January 29, 2020 11:04am Take one tablet daily- current dose is 7 mg daily. Or otherwise as instructed. Start: 09-25-2018 End: 03-24-2021 Start: 09-25-2018 End: 10-27-2020 take 1 mg by mouth once daily Warfarin Discontinued 1 MG PO DAILY January 28, 2020 11:00pm October 27, 2020 12:43pm Start: 06-20-2018 End: 01-27-2019 take 7 mg by mouth once daily Warfarin Discontinued 7 MG PO DAILY June 20, 2018 9:45am January 27, 2019 9:45am Start: 01-23-2018 End: 05-02-2018 Start: 01-23-2018 End: 05-02-2018 Warfarin (Coumadin) 1 mg tab let Discontinued 1 MG PO .COMPLEX 180 May 01, 2018 8:57am May 02, 2018 3:57pm 1 mg PO one tablet daily with a 6mg tablet to = 7 mg: pt needs extra tablets as his dose changes often Start: 01-21-2018 End: 06-20-2018 Start: 01-18-2018 End: 01-29-2020 Start: 01-18-2018 End: 06-20-2018 take 1 dose by mouth once Warfarin Discontinued 6 MG P O ONCE 90 January 18, 2018 12:00am June 20, 2018 9:45am current dose is 7 mg 6 days a week and 7.5 mg once a week. Start: 11-01-2017 End: 01-21-2018 Start: 11-01-2017 End: 01-21-2018 take 1 mg by mouth once daily Warfarin Discontinued 1 MG PO daily 180 January 18, 2018 10:45am January 21, 2018 4:24pm Start: 07-03-2016 End: 11-01-2017 take 10 mg by mouth once daily Warfarin Discontinued 1 0 MG PO DAILY@1700 July 03, 2016 9:21am November 01, 2017 9:09am Start: 06-23-2016 End: 07-03-2016 take 3 tablets by mouth once daily Warfarin (Jantoven) 5 MG tablet Discontinued 15 MG PO DAILY@1700 90 June 22, 2016 11:00pm July 03, 2016 9:21am Start: 04-30-2016 End: 11-01-2017 Start: 04-30-2016 End: 06-23-2016 Warfarin (Coumadin (Pbkc)) 5 MG tablet Discontinued 7.5 MG PO DAILY April 29, 2016 11:00pm June 23, 2016 10:26am Start: 09-05-2013 COUMADIN 1 MG TABS Take with a 6 mg : Sunday through Sunday take 7 mg daily, Sunday take 8 mg daily or as directed WARFARIN SODIUM [id number] Jeff Grullon MD Start: 09-05-2013 COUMADIN 1 MG TABS two tablets every evening with a 6mg tablets and as directed WARFARIN SODIUM [id number] Jeff Grullon MD Start: 09-05-2013 End: 06-05-2016 COUMADIN 6 MG TABS This dosa ge includes: 7 mg daily Sun through Sunday, 8 mg on Sat and Sun. WARFARIN SODIUM [id number] Aleisha Alonso RN Start: 09-05-2013 COUMADIN 5 MG TABS 15 mg X 4 days per week and 10 mg X 3 days per week or as directed (dose changes often) WARFARIN SODIUM [id number] Jeff Grullon MD Start: 09-04-2013 COUMADIN 1 MG TABS This dosage includes: 7 mg daily Sun through Sunday, 6.5 mg on Sat and Sun. WARFARIN SODIUM [id number] Aleisha Alonso RN Start: 12-05-2011 End: 06-09-2014 WARFARIN SODIUM 7.5 MG TABS take one and half tablets by mouth every evening WARFARIN SODIUM [id number] Carla Schmid Start: 09-29-2011 COUMADIN 1 MG TABS Take 1 tablet with a 6 mg tablet to = 7 mg a day, except on Sunday take two 1 mg tablets with a 6 to = 8 WARFARIN SODIUM [id number] Aleisha Alonso RN Start: 09-29-2011 take 1 tablet by dyana th once daily, then take 1 tablet by mouth once daily, then take 2 tablets by mouth, then take 8 tablets by mouth COUMADIN 6 MG TABS One tablet by mouth daily (with a 1 mg tablet daily to = 7 mg, except on Sunday take two 1 mg to =8 ) WARFARIN SODIUM [id number] Oswaldo Ken MD (20 sources) Start: 01-10-2022 Start: 10-27-2020 End: 12-01-2020 Start: 06-06-2016 End: 10-31-2021 Completed/Discontinued Medications Medication Drug Class(es) Dates Sig (Normalized) Sig (Original) acetaminophen 325 mg oral tablet (20 sources) Start: 12-18-2024 End: 12-19-2024 take 1 tablet by mouth every six hours as needed 650 mg, Oral, EVERY 6 HOURS NEEDED, Starting on Jerrica 12/18/24 at 1402, Until 12/19/24 at 1904, Mild Pain, Oral temp > 100.4 F, Maximum dose of acetaminophen is 4000 mg from all sources in 24 hours. Start: 04-02-2024 End: 04-02-2024 take 1 tablet by mouth every six hours as needed 650 mg, Oral, EVERY 6 HOURS NEEDED, Starting on Sun04/02/24 at 1136, Until Sun04/02/24 at 1530, Mild Pain, Maximum dose of acetaminophen is 4000 mg from all sources in 24 hours., Post-op/Post-Proc Start: 04-25-2022 acetaminophen 500 MG tablet Take 1 tablet by mouth. 0 04/25/2022 Active Start: 06-23-2016 End: 07-03-2016 Start: 06-23-2016 End: 07-03-2016 take 2 tablets by mouth every six hours as needed Acetaminophen (Tylenol) 325 MG tablet Discontinued 650 MG PO EVERY 6 HOURS NEEDED 0 June 22, 2016 11:00pm July 03, 2016 9:19am Start: 09-04-2013 End: 06-05-2016 take 1 tablet by mouth twice daily ACETAMINOPHEN 500 MG TABS One tablet by mouth twice daily ACETAMINOPHEN [id number] Jane Torres PA-C take 1000 mg by mout h twice daily Acetaminophen (TYLENOL PO) Take 1,000 mg by mouth 2 times daily. Active Acetaminophen (T YLENOL PO) Take by mouth. Active acyclovir 400 mg oral tablet (8 sources) Herpesvirus Nucleoside Analog DNA Polymerase Inhibitor, Herpes Simplex Virus Nucleoside Analog DNA Polymerase Inhibitor, Herpes Zoster Virus Nucleoside Analog DNA Polymerase Inhibitor Start: 11-16-2011 End: 02-26-2012 take 1 tablet by mouth twice daily ACYCLOVIR 400 MG TABS One tablet by mouth twice daily ACYCLOVIR [id number] Aleisha Alonso RN Start: 05-01-2011 End: 10-06-2011 take 1 tablet by mouth twice daily ACYCLOVIR 400 MG TABS One tablet by mouth twice daily ACYCLOVIR [id number] Oswaldo Ken MD [id number] 200 actuat albuter ol 0.09 mg/actuat metered dose inhaler (20 sources) beta2-Adrenergic Agonist Start: 02-14-2025 End: 03-06-2025 Start: 03-19-2024 Start: 01-26-2022 take 1 puff(s) by in halation every four hours Albuterol Sulfate (Ventolin Hfa) 90 mcg/actuation HFA aerosol inhaler Active 2 PUFF INHALATION Q4H January 26, 2022 3:05pm Start: 01-26-2022 End: 10-16-2022 Start: 01-26-2022 End: 10-16-2022 take 1 puff(s) by inhalation every four hours Albuterol Sulfate (Ventolin Hfa) 90 mcg/actuation HFA aerosol inhaler Discontinued 2 PUFF INHALATION Q4H January 26, 2022 12:00am October 16, 2022 11:25am Start: 01-26-2022 End: 10-16-2022 Start: 10-06-2011 End: 07-04-2012 VENTOLIN HFA 108 (90 Base) M CG/ACT AERS As needed - 90mcg/inh ALBUTEROL SULFATE [id number] Oswaldo Ken MD allopurinol 100 mg oral tabl et (20 sources) Xanthine Oxidase Inhibitor Start: 08-29-2017 End: 10-31-2021 Start: 05-01-2011 End: 06-05-2016 take 1 tablet by mouth once daily ALLOPURINOL 100 MG TABS One tablet by mouth daily ALLOPURINOL [id number] Philly Molina aluminum hydroxide 40 mg/ml / magnesium hydroxide 40 mg/ml / simethicone 4 mg/ml oral suspension (2 sources) Start: 12-18-2024 End: 12-19-2024 take 30 mL by mouth every six hours as needed 30 mL, Oral, EVERY 6 HOURS NEEDED, Starting on Jerrica 12/18/24 at 1402, Until Sun12/19/24 at 1904, Indigestion, Per 5 mL is equivalent to: (Alum-Mag Hydroxide 200-225 mg and Simethicone 20 mg) and (Alum-Mag Hydroxide 200-200 mg and Simethicone 20 mg) Start: 04-02-2024 End: 04-02-2024 take 30 mL by mouth every six hours as needed 30 mL, Oral, EVERY 6 HOURS NEEDED, Starting on Sun04/02/24 at 1136, Until Sun04/02/24 at 1530, Indigestion, Per 5 mL is equivalent to: (Alum-Mag Hydroxide 200-225 mg and Simethicone 20 mg) and (Alum-Mag Hydroxide 200-200 mg and Simethicone 20 mg), Post-op/Post-Proc amLODIPine 2.5 mg oral tablet (6 sources) Dihydropyridine Calcium Channel Lloyd Start: 10-29-2014 End: 06-29-2016 take 1 tablet by mouth once daily NORVASC 2.5 MG TABS One tablet by mouth daily AMLODIPINE BESYLATE [id number] Jeff Grullon MD ascorbic acid 500 mg chewable tablet (20 sources) Start: 06-06-2016 End: 07-03-2016 Start: 06-05-2016 End: 06-29-2016 take 1 tablet by mouth twice daily ASCORBIC ACID 250 MG TABS One tablet by mouth twice daily ASCORBIC ACID [id number] Jeff Grullon MD ascorbic acid 100 mg / bioti n 0.15 mg / calcium pantothenate 5 mg / folic acid 1 mg / niacin 20 mg / pyridoxine 10 mg / riboflavin 1.7 mg / thiamine mononitrate 1.5 mg / vitamin b12 0.006 mg oral capsule (5 sources) Nicotinic Acid, Vitamin B12, Vitamin C Start: 02-16-2025 End: 03-06-2025 Start: 12-18-2024 End: 12-19-2024 take 1 capsule by mouth once daily 1 mg (1 capsule), Oral, DAILY, First dose on Jerrica 12/18/24 at 1430, Until Discontinued Start: 10-20-2021 End: 07-14-2022 take 1 capsule by mouth once daily vitamin C/B complex/folic acid 1 MG capsule Take 1 capsule by mouth daily. 30 capsule 0 10/20/2021 07/14/2022 Discontinued aspirin 81 mg delayed release oral tablet (20 sources) Nonsteroidal Anti-inflammatory Drug Start: 03-01-2021 End: 03-07-2021 Start: 05-01-2011 take 1 tablet by dyana once daily ASPIRIN 81 MG TABS One tablet by mouth daily ASPIRIN [id number] Meron Cohen RN Start: 05-01-2011 End: 02-26-2012 take 1 tablet by mouth once daily ASPIRIN EC 81 MG TBEC One tablet by mouth daily ASPIRIN [id number] Gabi Mcconnell RN atropine sulfate 0.025 mg / diphenoxylate hydrochloride 2.5 mg oral tablet (4 sources) Anticholinergic, Cholinergic Muscarinic Antagonist, Antidiarrheal Start: 11-16-2011 End: 02-26-2012 LOMOTIL 2.5-0.025 MG TABS 1 tablet every 4 hours as needed DIPHENOXYLATE-ATROPINE [id number] Oswaldo Ken MD benzonatate (4 sources) Non-narcotic Antitussive Start: 11-16-2011 TESSALON 200 MG CAPS twice daily as needed BENZONATATE [id number] Aleisha Alonso RN Start: 11-16-2011 End: 02-26-2012 TESSALON 200 MG CAPS twice d aily as needed BENZONATATE [id number] Oswaldo Ken MD bisacodyl 5 mg delayed relea se oral tablet (2 sources) Stimulant Laxative Start: 02-15-2025 End: 02-15-2025 calcitriol 0.51884 mg oral c apsule (20 sources) Vitamin D3 Analog Start: 02-16-2025 End: 02-16-2025 Start: 08-29-2017 End: 10-31-2021 take 0.25 mg by mouth at dinner Calcitriol Discontinue d 0.25 MG PO WITH DINNER August 28, 2017 11:00pm October 31, 2021 2:08pm Start: 02-28-2017 End: 07-14-2022 calcium acetate 667 mg oral capsule (2 sources) Start: 02-13-2025 End: 03-06-2025 carvedilol 3.125 mg oral tab let (20 sources) alpha-Adrenergic Lloyd, beta-Adrenergic Lloyd Start: 09-01-2022 End: 12-11-2022 Start: 10-20-2021 End: 01-15-2023 Start: 05-06-2021 End: 10-31-2021 Start: 03-01-2021 End: 05-06-2021 Start: 03-01-2021 End: 05-06-2021 take 3.125 mg by mouth twice daily at mealtime Carvedilol Discontinued 3.125 MG PO TWICE A DAY March 07, 2021 9:33am May 06, 2021 7:40am must administer with a meal/food Start: 06-23-2020 End: 03-01-2021 Start: 06-23-2020 End: 06-25-2020 take 0.5 tablet by mouth twice daily Carvedilol Discontinued 3.125 MG PO TWICE A DAY 180 June 23, 2020 4:04pm June 25, 2020 3:23pm 1/2 tablet po BID Start: 03-25-2020 End: 06-23-2020 take 0.5 tablet by mouth twice daily Carvedilol Discontinued 6.25 MG PO TWICE A DAY 180 March 25, 2020 9:26am June 23, 2020 4:05pm 1/2 tablet po BID Start: 05-29-2019 End: 06-23-2020 Start: 06-20-2018 End: 05-29-2019 take 6.25 mg by mouth twice daily Carvedilol Discontinued 6.25 MG PO TWICE A DAY June 20, 2018 7:13am May 29, 2019 8:50am Start: 06-05-2016 End: 05-29-2019 cefdinir 300 mg oral capsule (20 sources) Cephalosporin Antibacterial Start: 08-20-2021 End: 10-31-2021 cefTRIAXone 1000 mg injection (2 sources) Cephalosporin Antibacterial Start: 02-15-2025 End: 02-19-2025 take 1 g intravenously every twenty-four hours cephalexin 250 mg oral capsule (6 sources) Cephalosporin Antibacterial Start: 03-28-2023 End: 03-28-2023 cephALEXin (KEFLEX) capsule 250 mg Start: 04-23-2014 End: 07-28-2014 take 1 tablet by mouth three times daily KEFLEX 250 MG CAPS One tablet by mouth three times daily CEPHALEXIN [id number] Jane Torres PA-C sugar-free cholestyramine resin 4000 mg powder for oral suspension (14 sources) Bile Acid Sequestrant Start: 01-29-2014 End: 06-05-2016 CHOLESTYRAMINE LIGHT 4 GM PACK 1 and 1/2 pack twice daily to = 6 Grams bid CHOLESTYRAMINE LIGHT [id number] Carla Schmid Start: 01-29-2014 QUESTRAN 4 GM PACK 1-1/2 pkts twice daily to equal 6 Gm twice a day CHOLESTYRAMINE [id number] Jeff Grullon MD Start: 01-16-2013 End: 01-21-2013 QUESTRAN 4 GM PACK 1-1/2 pkt s twice daily to equal 6 Gm twice a day CHOLESTYRAMINE [id number] Jeff Grullon MD cinacalcet 30 mg oral tablet (20 sources) Calcium-sensing Receptor Agonist Start: 12-19-2024 End: 12-19-2024 take 30 mg by mouth once 30 mg, Oral, EVERY M, W & F, First dose on Sun12/19/24 at 0900, Until Discontinued Start: 10-01-2024 End: 05-27-2025 codeine / guaiFENesin (4 sources) Opioid Agonist Start: 11-16-2011 End: 02-26-2012 ROBAFEN AC 100-10 MG/5ML SYR P 1-2 tbsp by mouth every 4 hours as needed GUAIFENESIN-CODEINE [id number] Oswaldo Ken MD Start: 11-16-2011 ROBAFEN AC 100 -10 MG/5ML SYRP 1-2 tbsp by mouth every 4 hours as needed GUAIFENESIN-CODEINE [id number] Aleisha Alonso RN colestipol hydrochloride 5000 mg oral granules (4 sources) Bile Acid Sequestrant Start: 06-09-2011 End: 01-21-2013 COLESTID 5 GM PACK 1 pkg by mouth 2 X daily COLESTIPOL HCL [id number] Oswaldo Ken MD 0.3 ml darbepoetin yonis 0.2 mg/ml prefilled syringe (2 sources) Erythropoiesis-sti mulating Agent Start: 03-03-2025 End: 03-06-2025 24 hr dilTIAZem hydrochloride 180 mg extended release oral capsule (6 sources) Calcium Channel Lloyd Start: 01-21-2013 End: 04-24-2013 take 1 tablet by mouth twice daily CARDIZEM CD 180 MG [id number] One tablet by mouth twice daily DILTIAZEM HCL COATED BEADS [id number] Jeff Grullon MD Start: 05-01-2011 take 1 tablet by dyana once daily CARDIZEM CD 300 MG [id number] One tablet by mouth daily DILTIAZEM HCL COATED BEADS [id number] Oswaldo Ken MD diphenhydrAMINE hydrochloride 25 mg oral tablet (2 sources) Histamine-1 Receptor Antagonist Start: 02-18-2025 End: 02-20-2025 take 25 mg by mouth every six hours as needed docusate sodium 100 mg oral capsule (20 sources) Start: 04-24-2016 End: 07-03-2016 Start: 04-24-2016 End: 07-03-2016 take 2 tablets by mouth twice daily COLACE 100 MG CAPS Two tablets by mouth twice daily DOCUSATE SODIUM [id number] Jeff Grullon MD Docusate Sodium (COLACE PO) Take by mouth 2 times daily. Active Docusate Sodium (COLACE PO) Take by mouth. Active doxycycline monohydrate 100 mg oral capsule (20 sources) Tetracycline-class Drug Start: 02-13-2025 End: 03-06-2025 Start: 12-18-2024 End: 12-19-2024 take 100 mg by mouth every twelve hours 100 mg, Oral, EVERY 12 HOURS, First dose on Sun12/18/24 at 2100, Until Discontinued Start: 12-12-2022 take 1 capsule by mo uth twice daily doxycycline hyclate 100 MG capsule Take 1 capsule by mouth 2 times daily. 12/12/2022 Active Start: 11-27-2022 Start: 01-12-2022 End: 07-18-2022 Start: 01-23-2017 End: 01-23-2018 take 100 mg by mouth every twelve hours DOXYCYCLINE HYCLATE 100 MG CAPS 100 mg po q 12H DOXYCYCLINE HYCLATE [id number] Eli Rajan MD Start: 07-03-2016 End: 01-12-2022 Start: 06-29-2016 End: 02-19-2017 take 1 tablet by mouth twice daily DOXYCYCLINE HYCLATE 100 MG TABS One tablet by mouth twice daily DOXYCYCLINE HYCLATE [id number] Patience Mccracken LPN Drug or medicament (substanc e) (20 sources) Start: 03-05-2025 End: 03-04-2025 Start: 03-05-2025 End: 03-02-2025 Start: 03-01-2025 End: 02-28-2025 Start: 2025 End: 02-26-2025 Start: 02-26-2025 End: 02-25-2025 Start: 02-26-2025 End: 02-23-2025 Start: 02-22-2025 End: 02-21-2025 Start: 02-20-2025 End: 02-19-2025 Start: 02-16-2025 End: 02-16-2025 Start: 02-13-2025 End: 02-13-2025 End: 02-24-2025 0.6 ml enoxaparin sodium 100 mg/ml prefilled syringe (20 sources) Low Molecular Weight Heparin Start: 03-23-2025 End: 03-25-2025 Start: 02-09-2025 End: 02-12-2025 Start: 06-04-2023 End: 06-11-2023 Start: 06-04-2023 End: 06-11-2023 Enoxaparin Discontinued 60 M G SC Q12H 6 June 03, 2023 11:00pm June 11, 2023 9:18am Start: 02-16-2016 End: 08-28-2016 LOVENOX 80 MG/0.8ML SOLN One 80 mg injection subq twice daily ENOXAPARIN SODIUM [id number] Jeff Grullon MD Start: 02-16-2016 LOVENOX 100 MG /ML SOLN one subcutaneous injection twice daily ENOXAPARIN SODIUM [id number] Jeff Grullon MD Start: 05-01-2011 End: 10-06-2011 LOVENOX 100 MG/ML SOLN Subcu taneously every morning ENOXAPARIN SODIUM [id number] Oswaldo Ken MD esomeprazole 40 mg delayed release oral capsule (4 sources) Proton Pump Inhibitor Start: 05-01-2011 End: 11-23-2011 take 1 tablet by mouth once daily NEXIUM 40 MG CPDR One tablet by mouth daily ESOMEPRAZOLE MAGNESIUM [id number] Oswaldo Ken MD ferrous sulfate 325 mg oral tablet (20 sources) Start: 01-10-2022 End: 10-16-2022 Start: 05-27-2021 End: 01-15-2023 take 325 mg by mouth once daily Ferrous Sulfate Discon tinued 325 MG PO DAILY January 10, 2022 12:00am January 12, 2022 1:03pm Start: 11-21-2018 End: 10-31-2021 Start: 11-21-2018 End: 10-31-2021 take 65 mg by mouth at dinner Ferrous Sulfate Disconti nued 65 MG PO WITH DINNER November 21, 2018 12:00am October 31, 2021 2:10pm guaiFENesin 20 mg/ml oral solution (1 source) Start: 12-18-2024 End: 12-19-2024 take 400 mg by mouth every six hours as needed 400 mg, Oral, EVERY 6 HOURS NEEDED, Starting on Jerrica 12/18/24 at 1402, Until 12/19/24 at 1904, Cough, Congestion 250 ml heparin sodium, porcine 100 unt/ml injection (3 sources) Unfractionated Heparin, Anti-coagulant Start: 02-13-2025 End: 03-05-2025 Start: 02-18-2022 Heparin 1000 U NIT/ML Solution by Tube route. 0 02/18/2022 Active 1 ml HYDROmorphone hydrochloride 1 mg/ml cartridge (1 source) Opioid Agonist Start: 04-02-2024 End: 04-02-2024 take 0.2 mg intravenously every two hours as needed 0.2 mg, Intravenous, EVERY 2 HOURS NEEDED, Starting on Sun04/02/24 at 1136, Until Sun04/02/24 at 1530, Severe Pain, If unable to tolerate PO, Post-op/Post-Proc sodium hypochlorite 0.125 mg/ml topical solution (4 sources) Start: 06-05-2016 End: 06-29-2016 DI-DAK-JOELLEN 0.0125 % SOLN one application by topical route as needed SODIUM HYPOCHLORITE [id number] Carla Schmid 24 hr isosorbide mononitrate 30 mg extended release oral tablet (20 sources) Nitrate Vasodilator Start: 04-19-2020 End: 01-19-2023 lactulose 667 mg/ml oral solution (20 sources) Osmotic Laxative Start: 02-13-2025 End: 02-15-2025 Start: 12-16-2024 End: 03-06-2025 Start: 10-16-2022 End: 11-27-2022 Start: 10-16-2022 End: 11-27-2022 take 10 g by mouth once daily Lactulose Discontinued 1 0 GM PO DAILY October 16, 2022 12:00am November 27, 2022 1:25pm Start: 10-31-2021 End: 01-12-2022 Start: 08-20-2021 End: 10-31-2021 levETIRAcetam 250 mg oral ta blet (20 sources) Start: 10-16-2022 End: 09-19-2023 Start: 10-16-2022 End: 04-02-2024 take 250 mg by mouth twice daily Levetiracetam Discontinued 250 MG PO TWICE A DAY 60 October 16, 2022 12:00am June 11, 2023 9:19am Start: 01-09-2022 End: 10-16-2022 Start: 10-31-2021 End: 01-09-2022 levOCARNitine 330 mg oral ta blet (20 sources) Carnitine Analog Start: 01-09-2022 End: 01-15-2023 levothyroxine (20 sources) l-Thyroxine Start: 02-14-2025 End: 03-06-2025 Start: 04-14-2021 End: 12-19-2024 lidocaine hydrochloride 0.02 mg/mg topical gel (2 sources) Antiarrhythmic, Amide Local Anesthetic Start: 03-28-2023 End: 03-28-2023 Lidocaine HCl Urethral/Mucosal 2 % jelly prefilled syringe (Urojet) PRSY 10 mL lisinopril 10 mg oral tablet (20 sources) Angiotensin Converting Enzyme Inhibitor Start: 04-11-2016 End: 04-24-2016 magnesium oxide 400 mg oral tablet (1 source) Start: 04-02-2024 End: 04-02-2024 800 mg, Oral, ADMINISTER DIRECTED, Starting on Sun04/02/24 at 1136, Until Sun04/02/24 at 1530, See admin instructions, For Magnesium 1.6 - 2.0, give 800 mg of Magnesium oxide, Post-op/Post-Proc 50 ml magnesium sulfate 80 mg/ml injection (1 source) Start: 04-02-2024 End: 04-02-2024 4 g, Intravenous, Administer over 4 Hours, ADMINISTER DIRECTED, Starting on Sun04/02/24 at 1136, Until Sun04/02/24 at 1530, Other, Magnesium Replacement Therapy, If Magnesium less than 1.6, give 4 g Magnesium Sulfate IVPB over 4 hours (may give over 1 hour if arrhythmias present)., Post-op/Post-Proc melatonin 3 mg oral tablet (6 sources) Start: 02-13-2025 End: 03-06-2025 Start: 12-18-2024 End: 12-19-2024 take 6 mg by mouth once daily at bedtime as needed 6 mg, Oral, DAILY AT BEDTIME NEEDED, Starting on Jerrica 12/18/24 at 1402, Until Sun12/19/24 at 1904, Insomnia Start: 04-02-2024 End: 04-02-2024 take 3 mg by mouth once daily at bedtime as needed 3 mg, Oral, DAILY AT BEDTIME NEEDED, Starting on Sun04/02/24 at 1136, Until Sun04/02/24 at 1530, Insomnia, Post-op/Post-Proc Start: 10-20-2021 End: 07-14-2022 take 2 tablets by mouth at bedtime as needed melatonin 3 MG tablet Take 2 tablets by mouth at bedtime as needed for Insomnia. 0 10/20/2021 07/14/2022 Discontinued metoprolol tartrate 25 mg oral tablet (20 sources) beta-Adrenergic Lloyd Start: 12-08-2013 End: 06-05-2016 take 0.5 tablet by mouth twice daily METOPROLOL TARTRATE 25 MG TABS One-half tablet by mouth twice daily METOPROLOL TARTRATE [id number] Jeff Grullon MD Start: 05-12-2013 take 1 tablet by dyana th twice daily METOPROLOL TARTRATE 25 MG TABS One tablet by mouth twice daily METOPROLOL TARTRATE [id number] Jane Torres, LORENA Start: 04-24-2013 take 1 tablet by dyana th twice daily METOPROLOL TARTRATE 50 MG TABS One half tablet by mouth twice daily METOPROLOL TARTRATE [id number] Jane Torres PA-C MULTIPLE VITAMIN (2 sources) Start: 06-05-2016 take 1 tablet by mouth once daily DAILY VALUE MULTIVITAMIN TABS One tablet by mouth daily MULTIPLE VITAMIN [id number] Carla Schmid Multivitamin With Folic Acid (20 sources) Start: 06-06-2016 End: 10-31-2021 take 2 tablets by mouth once daily Multivitamin With Folic Acid Discontinued 2 TABLET PO DAILY June 06, 2016 6:36pm October 31, 2021 3:13pm Start: 06-06-2016 End: 10-31-2021 take 2 tablets by mouth once daily Multivitamin With Folic Acid Discontinued 2 TABLET PO DAILY June 05, 2016 11:00pm October 31, 2021 2:13pm Start: 06-06-2016 End: 10-31-2021 take 2 tablets by mouth once daily Multivitamin With Folic Acid Discontinued 2 TABLET PO DAILY June 06, 2016 12:00am October 31, 2021 3:13pm niacin 500 mg extended release oral tablet (20 sources) Nicotinic Acid Start: 03-03-2014 take 1 tablet by mouth once daily NIACIN 500 MG TABS One tablet by mouth daily NIACIN [id number] Jeff Grullon MD Start: 03-03-2014 End: 06-05-2016 take 1 tablet by mouth once daily NIACIN ER 500 MG CR-TABS One tablet by mouth daily NIACIN [id number] Meron Cohen RN Start: 02-26-2012 take 2 tablets by mo [facility] once daily NIASPAN 500 MG CR-TABS two tablets by mouth daily NIACIN (ANTIHYPERLIPIDEMIC) [id number] Oswaldo Ken MD Start: 11-16-2011 End: 04-22-2013 take 1 tablet by mouth once daily NIASPAN 1000 MG CR-TABS One tablet by mouth daily NIACIN (ANTIHYPERLIPIDEMIC) [id number] Jeff Grullon MD Start: 05-01-2011 take 1 tablet by dyana twice daily NIASPAN 500 MG CR-TABS One tablet by mouth twice daily NIACIN (ANTIHYPERLIPIDEMIC) [id number] Philly Molina 2 ml ondansetron 2 mg/ml injection (20 sources) Serotonin-3 Receptor Antagonist Start: 04-02-2024 End: 04-02-2024 4 mg, Intravenous, EVERY 4 HOURS NEEDED, Starting on Sun04/02/24 at 1136, Until Sun04/02/24 at 1530, Nausea / Vomiting, Post-op/Post-Proc Start: 10-10-2021 End: 07-18-2022 Start: 11-16-2011 End: 02-26-2012 ZOFRAN 4 MG TABS every 4 emmy rs As needed ONDANSETRON HCL [id number] Oswaldo Ken MD Start: 05-01-2011 End: 10-06-2011 ZOFRAN 4 MG TABS As needed 2 ONDANSETRON HCL [id number] Philly Molina Ondansetron 4mg/2ml (ZOFRAN) injection 4 mg (1 source) Start: 12-18-2024 End: 12-19-2024 take 4 mg intravenously every six hours as needed Ondansetron 4mg/2ml (ZOFRAN) injection 4 mg oxyCODONE (20 sources) Opioid Agonist Start: 04-02-2024 End: 04-02-2024 take 1 tablet by mouth every four hours as needed oxyCODONE (ROXICODONE) tablet 5 mg Start: 06-05-2016 End: 06-29-2016 take 1 tablet by mouth every three hours as needed OXYCODONE HCL 10 MG TABS one tab by mouth every 3 hours as needed OXYCODONE HCL [id number] Jeff Grullon MD Start: 04-11-2016 End: 06-23-2016 oxymetazoline hydrochloride 0.5 mg/ml nasal spray (20 sources) Start: 04-06-2022 End: 06-06-2022 Start: 04-06-2022 End: 06-06-2022 Oxymetazoline (Nasal Martinez ( Oxymetazoline)) 0.05 % spray,non-aerosol Discontinued 1 SPRAY NASAL THREE TIMES A DAY May 08, 2022 2:39pm June 06, 2022 1:24pm Start: 04-06-2022 End: 06-06-2022 pantoprazole 40 mg delayed r elease oral tablet (20 sources) Proton Pump Inhibitor Start: 02-15-2025 End: 02-18-2025 Start: 08-02-2021 End: 12-19-2024 Start: 08-02-2021 End: 03-06-2025 Start: 09-14-2020 End: 03-01-2021 Start: 06-21-2018 End: 09-03-2018 Perflutren Lipid Microsphere (DEFINITY) 1.5 mL in Normal saline flush 0.9% 8.5 mL (1 source) Start: 03-24-2024 End: 03-24-2024 2 mL, Intravenous, ONCE, 1 dose, On Sun03/24/24 at 1615, FOR ECHO PROCEDURE ONLY Dilute 1.5 mL of Definity with 8.5 mL of 0.9% sodium chloride and draw up in a 10 mL syringe. Administration during procedure as directed by physician. Recorded MAR dose is cumulative amount given during procedure., Echo Procedure polyethylene glycol 3350 02425 mg powder for oral solution (20 sources) Osmotic Laxative Start: 12-18-2024 End: 12-19-2024 17 g, Oral, DAILY NEEDED, Starting on Jerrica 12/18/24 at 1402, Until Sun12/19/24 at 1904, Constipation 1st Line Start: 04-02-2024 End: 04-02-2024 17 g, Oral, DAILY NEEDED, Starting on Sun04/02/24 at 1136, Until Sun04/02/24 at 1530, Constipation 1st Line, Post-op/Post-Proc Start: 06-06-2016 End: 07-03-2016 POLYETHYLENE GLYCOL 3350 (4 sources) Start: 06-05-2016 End: 06-29-2016 take 1 dose by mouth once daily MIRALAX PACK one packet by mouth daily POLYETHYLENE GLYCOL 3350 [id number] Jeff Grullon MD Start: 06-05-2016 take 1 dose by mouth once daily MIRALAX PACK one packet by mouth daily POLYETHYLENE GLYCOL 3350 [id number] Carla Schmid polysaccharide iron complex 150 mg oral capsule (20 sources) Start: 11-01-2017 End: 11-21-2018 Start: 11-01-2017 End: 11-21-2018 Polysaccharide Iron Complex (Ferrex 150) 150 mg iron capsule Discontinued 150 MG PO TWICE A DAY July 29, 2018 9:55am November 21, 2018 3:06pm Start: 07-16-2017 take 1 tablet by dyana once daily FERREX 150 150 MG CAPS One tablet by mouth daily POLYSACCHARIDE IRON COMPLEX [id number] Ariana Maynard POTASSIUM CHLORIDE JOANNE CR (14 sources) Start: 02-15-2025 End: 02-15-2025 Start: 06-25-2012 End: 04-24-2013 take 1 tablet by mouth once daily KLOR-CON M20 20 MEQ CR-TABS One tablet by mouth daily POTASSIUM CHLORIDE JOANNE CR [id number] Jeff Grullon MD Start: 06-25-2012 take 1 tablet by dyana th once daily KLOR-CON M20 20 MEQ CR-TABS One tablet by mouth daily POTASSIUM CHLORIDE JOANNE CR [id number] Oswaldo Ken MD Start: 12-13-2011 KLOR-CON M20 2 0 MEQ CR-TABS POTASSIUM CHLORIDE JOANNE CR [id number] Aleisha Alonso RN Start: 10-06-2011 take 1 tablet by dyana th once daily POTASSIUM CHLORIDE 20 MEQ PACK One tablet by mouth daily POTASSIUM CHLORIDE [id number] Oswaldo Ken MD Start: 05-01-2011 take 1 tablet by dyana th once daily POTASSIUM CHLORIDE ER 10 MEQ CR-TABS One tablet by mouth daily POTASSIUM CHLORIDE [id number] Philly Molina promethazine (20 sources) Phenothiazine Start: 12-18-2024 End: 12-19-2024 take 1 tablet by mouth every six hours as needed Promethazine HCl (PHENERGAN) tablet 25 mg Start: 06-06-2016 End: 07-03-2016 Start: 06-05-2016 End: 08-28-2016 take 1-2 tablets by mouth every eight hours as needed PROMETHAZINE HCL 12.5 MG TABS one-two tabs by mouth every 8 hours as needed PROMETHAZINE HCL [id number] Jeff Grullon MD ramipril 2.5 mg oral capsule (8 sources) Angiotensin Converting Enzyme Inhibitor Start: 11-10-2013 End: 06-05-2016 take 1 tablet by mouth twice daily ALTACE 2.5 MG CAPS One tablet by mouth twice daily RAMIPRIL [id number] Carla Schmid Start: 05-01-2011 take 1 tablet by dyana th once daily ALTACE 2.5 MG CAPS One tablet by mouth daily RAMIPRIL [id number] Oswaldo Ken MD rifAMPin 300 mg oral capsule (20 sources) Rifamycin Antibacterial Start: 06-05-2016 End: 06-29-2016 rifAXIMin 550 mg oral tablet (20 sources) Rifamycin Antibacterial Start: 01-10-2022 End: 11-28-2025 take 1 tablet by mouth once Sarthak Zimmer, [id number], 550 MG tablet Take 1 tablet by mouth once. 0 01/15/2023 Discontinued senna leaves (4 sources) Start: 06-05-2016 take 1 tablet by dyana th twice daily as needed [facility] SENNA 8.6 MG TABS One tablet by mouth twice daily as needed SENNOSIDES [id number] Carla Schmid Start: 06-05-2016 End: 06-29-2016 take 1 tablet by mouth twice daily as needed [facility] SENNA 8.6 MG TABS One tablet by mouth twice daily as needed SENNOSIDES [id number] Jeff Grullon MD sennosides, [facility] 8.6 mg oral tablet (20 sources) Start: 06-06-2016 End: 07-03-2016 Start: 06-06-2016 End: 07-03-2016 take 1 tablet by mouth once daily as needed Sennosides (Ying-Mona) 1 TABLET tablet Discontinued 1 TABLET PO DAILY NEEDED June 05, 2016 11:00pm July 03, 2016 9:17am Start: 06-06-2016 End: 07-03-2016 sevelamer carbonate 800 mg oral tablet (20 sources) Phosphate Binder Start: 12-18-2024 End: 12-19-2024 take 800 mg by mouth three times daily at mealtime 800 mg, Oral, 3 TIMES DAILY WITH MEALS, First dose on Jerrica 12/18/24 at 1700, Until Discontinued, Swallow whole; do not crush, chew, or break. Hold if patient is not receiving tube feeding or on a diet. Start: 02-21-2023 End: 07-13-2023 take 2 tablets by mouth three times daily at mealtime sevelamer 800 MG tablet Take 2 tablets by mouth 3 times daily with meals. 180 tablet 0 02/21/2023 07/13/2023 Discontinued Start: 07-11-2022 End: 01-15-2023 sevelamer 800 MG tablet TAKE 3 TABLETS BY MOUTH THREE TIMES DAILY WITH MEALS (INCREASE TO 4 TABLETS IF EATING OUT) 0 07/11/2022 01/15/2023 Discontinued Start: 06-06-2022 End: 11-27-2022 sodium bicarbonate 650 mg or al tablet (20 sources) Start: 07-13-2020 End: 10-31-2021 Start: 06-05-2016 End: 10-30-2018 Start: 06-05-2016 take 1 tablet by dyana th three times daily SODIUM BICARBONATE 650 MG TABS One tablet by mouth three times daily SODIUM BICARBONATE [id number] Jeff Grullon MD 1000 ml sodium chloride 9 mg/ml injection (1 source) Start: 04-02-2024 End: 04-02-2024 Intravenous, at 10 mL/hr, CONTINUOUS, Starting on Sun04/02/24 at 0745, Until Sun04/02/24 at 1530, KVO fluids, start the morning of procedure., Pre-op/Pre-Proc SOTALOL HCL (6 sources) Antiarrhythmic Start: 07-04-2012 take 1 tablet by mouth twice daily SOTALOL HCL 120 MG TABS One tablet by mouth twice daily SOTALOL HCL [id number] Oswaldo Ken MD Start: 07-04-2012 End: 04-24-2013 take 1 tablet by mouth twice daily SOTALOL HCL 120 MG TABS One tablet by mouth twice daily SOTALOL HCL [id number] Jeff Grullon MD Start: 05-01-2011 take 1 tablet by dyana th twice daily SOTALOL HCL (AF) 120 MG TABS One tablet by mouth twice daily SOTALOL HCL AF [id number] Oswaldo Ken MD sulfamethoxazole 800 mg / trimethoprim 160 mg oral tablet (4 sources) Dihydrofolate Reductase Inhibitor Antibacterial, Sulfonamide Antimicrobial Start: 05-01-2011 End: 10-06-2011 BACTRIM DS 800-160 MG TABS Est-Ctz-Jksihps SULFAMETHOXAZOLE-TRIMETHOPRIM [id number] Oswaldo Ken MD tamsulosin hydrochloride 0.4 mg oral capsule (20 sources) alpha-Adrenergic Lloyd Start: 05-01-2011 End: 10-22-2024 vancomycin 500 mg injection (20 sources) Glycopeptide Antibacterial Start: 06-06-2016 End: 06-23-2016 Start: 06-06-2016 End: 06-23-2016 Vancomycin In 0.9 % Sodium C hl Discontinued 1.25 GM IV EVERY OTHER DAY June 05, 2016 11:00pm June 23, 2016 10:17am Start: 06-06-2016 End: 06-23-2016 Vancomycin HCl in NaCl (Vancocin) 1,500 mg 290 ml premade IVPB (1 source) Start: 04-02-2024 End: 04-02-2024 1,500 mg, Intravenous, Administer over 1 Hours, CRIME SCENE EVIDENCE TECHNICIAN TO PROCEDURE, 1 dose, Starting on Sun04/02/24 at 0000, Until Sun04/02/24 at 0902, Other, Preoperative antibiotic, Order should be timed for day of procedure. Floor nurse to start Vancomycin infusion on unit floor when EP lab staff notifies that patient is section hand to EP lab. Vancomycin is preferred agent for device implants, based on national, community and local ([facility]) MRSA rates., Pre-op/Pre-Proc VITAMIN A TABS (20 sources) Vitamin A Start: 06-27-2016 VITAMIN A PALM ITATE TABS 10,000 IU daily VITAMIN A TABS [id number] Gabi Mcconnell RN Start: 06-27-2016 End: 06-29-2016 VITAMIN A PALMITATE TABS 10, 000 IU daily VITAMIN A TABS [id number] Jeff Grullon MD Start: 06-06-2016 End: 07-03-2016 Problems Active Problems Problem Classification Problem Date Documented Date Episodic/Chronic Acute and unspecified renal failure (20 sources) Injury of kidney; 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: [Acute kidney failure, unspecified] Onset: 1 Resolved: 5 10-17-2021 Episodic Acute posthemorrhagic anemia (20 sources) Acute posthemorrhagic anemia; 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: [Acute posthemorrhagic anemia] Onset: 6 Resolved: 6 03-30-2016 Episodic Bacterial infection (20 sources) Methicillin resistant Staphylococcus aureus infection; 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: [Bacteremia due to Methicillin resistant Staphylococcus aureus] Onset: 6 Resolved: 6 09-06-2016 Episodic Cardiac arrest and ventricular fibrillation (16 sources) Cardiac arrest; 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: [Cardiac arrest, cause unspecified] Onset: 1 05-19-2021 Chronic Cardiac dysrhythmias (20 sources) Atrial flutter; 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: [Atrial paroxysmal tachycardia] Onset: 1 05-01-2011 Chronic 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 (20 sources) 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 stage 3; 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: [Stage 3 chronic kidney disease] Onset: 1 06-27-2016 Chronic Chronic ulcer of skin (2 sources) Skin ulcer; 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: [Non-pressure chronic ulcer of skin of other sites with unspecified severity] Onset: 6 07-05-2016 Chronic Coagulation and hemorrhagic disorders (5 sources) Thrombocytopenic disorder; 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: [Thrombocytopenia, unspecified] Onset: 5 02-13-2025 Chronic Complication of device; implant or graft (20 sources) Dialysis finding; 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: [Other specified complication of vascular prosthetic devices, implants and grafts, initial encounter] Onset: 5 03-27-2023 Chronic Complication of device; implant or graft (20 sources) Infection associated with vascular device; 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: [Infection and inflammatory reaction due to other cardiac and vascular devices, implants and grafts, initial encounter] Onset: 6 05-15-2016 Episodic Complications of surgical procedures or medical care (16 sources) Postoperative hemorrhage; 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: [Other complications of procedures, not elsewhere classified, initial encounter] Onset: 6 07-05-2016 Episodic Conduction disorders (20 sources) Cardiac pacemaker in situ; 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: [Biventricular cardiac pacemaker present] Onset: 1 05-01-2011 Chronic Congestive heart failure; nonhypertensive (20 sources) Chronic systolic heart failure; 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: [Chronic systolic (congestive) heart failure] Onset: 3 03-08-2016 Chronic Coronary atherosclerosis and other heart disease (20 sources) Coronary arteriosclerosis; 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: [Atherosclerotic heart disease of [place] coronary artery without angina pectoris] 10-17-2021 Chronic Deficiency and other anemia (20 sources) Anemia; 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: [Anemia, unspecified] Onset: 1 08-28-2021 Episodic Deficiency and other anemia (20 sources) Chronic anemia; 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: [Anemia, unspecified] 04-14-2022 Episodic Deficiency and other anemia (20 sources) Anemia, unspecified; 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: [Anemia, unspecified] Episodic Delirium, dementia, and amnestic and other cognitive disorders (20 sources) Delirium; 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: [Delirium due to known physiological condition] 08-28-2021 Chronic Diseases of white blood cells (17 sources) Leukemoid reaction; 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: [Leukocytosis] Onset: 1 05-01-2011 Chronic Disorders of lipid metabolism (20 sources) Hypertriglyceridemia; 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: [Hyperlipidemia] Onset: 1 03-03-2015 Chronic E Codes: Fall (20 sources) Fall; 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: [Unspecified fall, initial encounter] 08-28-2021 Episodic Essential hypertension (20 sources) Hypertensive disorder; 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: [Benign essential hypertension] Onset: 1 05-01-2011 Chronic Fluid and electrolyte disorders (20 sources) Disorder of electrolytes; 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: [Other disorders of electrolyte and fluid balance, not elsewhere classified] Onset: 1 08-28-2021 Episodic Heart valve disorders (20 sources) Heart valve replaced by other means; 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] Onset: 3 05-01-2011 Chronic Hepatitis (1 source) Nonalcoholic steatohepatitis; 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: [Nonalcoholic steatohepatitis (MADRID)] 04-16-2025 Chronic Hyperplasia of prostate (16 sources) Benign prostatic hyperplasia; 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: [Benign prostatic hyperplasia without lower urinary tract symptoms] 10-17-2021 Chronic Intestinal infection (20 sources) Viral gastroenteritis due to [place]-like agent; 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: [Acute gastroenteropathy due to [place] agent] Episodic Intestinal obstruction without hernia (4 sources) Stenosis of colon; 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: [Other intestinal obstruction unspecified as to partial versus complete obstruction] Onset: 5 02-17-2025 Episodic Malaise and fatigue (20 sources) Fatigue; 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: [Asthenia] Onset: 4 12-08-2013 Episodic Nausea and vomiting (20 sources) Vomiting; 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: [Vomiting, unspecified] 07-08-2021 Episodic Non-Hodgkin's lymphoma (20 sources) Non-Hodgkin's lymphoma (clinical); 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] Onset: 1 10-06-2011 Chronic Non-Hodgkin`s lymphoma (1 source) Personal history of non-Hodgkin lymphomas; 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: [Personal history of non-Hodgkin lymphomas] Onset: 5 Episodic Nutritional deficiencies (20 sources) Vitamin D deficiency; 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: [Vitamin D deficiency, unspecified] Chronic Other aftercare (20 sources) Long-term current use of anticoagulant; 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] 12-06-2022 Episodic Other aftercare (20 sources) 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; 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: [Long-term (current) use of 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] Episodic Other circulatory disease (2 sources) 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, unspecified; 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: [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, unspecified] Onset: 1 05-01-2011 Chronic Other connective tissue disease (1 source) Pain in right thigh; 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: [Pain in right thigh] Onset: 5 Episodic Other disorders of stomach and duodenum (10 sources) Persistent vomiting; 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: [Cyclical vomiting syndrome unrelated to migraine] 03-18-2025 Episodic Other disorders of stomach and duodenum (1 source) Other diseases of stomach and duodenum; 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: [Other diseases of stomach and duodenum] Onset: 5 Episodic Other hereditary and degenerative nervous system conditions (20 sources) Impaired cognition; 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: [Mild cognitive impairment, so stated] 10-16-2022 Chronic Other hereditary and degenerative nervous system conditions (20 sources) Mild cognitive impairment, so stated; 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: [Mild cognitive impairment, so stated] Onset: 5 Chronic Other hereditary and degenerative nervous system conditions (9 sources) Essential tremor; 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: [Essential tremor] 08-07-2023 Chronic Other hereditary and degenerative nervous system conditions (1 source) Essential tremor; 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: [Essential and other specified forms of tremor] 08-07-2023 Chronic Other injuries and conditions due to external causes (20 sources) Closed injury of head; 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: [Unspecified injury of head, initial encounter] 08-28-2021 Episodic Other injuries and conditions due to external causes (1 source) Unspecified injury of right hip, initial encounter; 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: [Unspecified injury of right hip, initial encounter] Onset: 5 Episodic Other liver diseases (20 sources) Cirrhosis of liver; 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: [Unspecified cirrhosis of liver] Onset: 1 Chronic Other liver diseases (9 sources) Unspecified cirrhosis of liver; 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: [Cirrhosis of liver without mention of alcohol] Chronic Other liver diseases (10 sources) 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 gastropathy; 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: [Portal hypertension] 03-18-2025 Chronic Other liver diseases (3 sources) Other cirrhosis of liver; 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: [Other cirrhosis of liver] Onset: 4 Chronic Other liver diseases (2 sources) Portal hypertension; 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: [Portal hypertension] Onset: 5 Chronic Other liver diseases (6 sources) Enzyme level - finding; 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: [Elevated transaminase measurement] 12-24-2024 Episodic Other liver diseases (1 source) Hepatic encephalopathy; 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: [Hepatic encephalopathy] 04-16-2025 Episodic Other lower respiratory disease (20 sources) Dyspnea; 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: [Dyspnea, unspecified] Onset: 1 09-29-2011 Episodic Other lower respiratory disease (20 sources) Hypoxemia; 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: [Hypoxemia] 08-28-2021 Episodic Other lower respiratory disease (20 sources) Cough; 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: [Cough] Episodic Other lower respiratory disease (20 sources) Dyspnea, unspecified; 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: [Other respiratory abnormalities] Onset: 5 Episodic Other nervous system disorders (20 sources) Disorder of brain; 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: [Encephalopathy, unspecified] Onset: 1 08-28-2021 Chronic Other nervous system disorders (20 sources) Polyneuropathy; 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: [Polyneuropathy, unspecified] 10-16-2022 Chronic Other nervous system disorders (20 sources) Metabolic encephalopathy; 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: [Metabolic encephalopathy] Onset: 6 Resolved: 6 06-26-2016 Chronic Other nervous system disorders (20 sources) Polyneuropathy, unspecified; 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: [Unspecified hereditary and idiopathic peripheral neuropathy] Onset: 5 Chronic Other nervous system disorders (18 sources) Encephalopathy, unspecified; 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: [Encephalopathy, unspecified] Chronic Other nervous system disorders (6 sources) Metabolic encephalopathy; 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: [Metabolic encephalopathy] Chronic Other non-traumatic joint disorders (20 sources) Hip pain; 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: [Pain in left hip] 08-28-2021 Episodic Other nutritional; endocrine; and metabolic disorders (20 sources) Hyperammonemia; 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: [Disorder of urea cycle metabolism, unspecified] 10-16-2022 Chronic Other nutritional; endocrine; and metabolic disorders (20 sources) Disorder of urea cycle metabolism, unspecified; 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: [Disorders of urea cycle metabolism] Onset: Chronic Other screening for suspected conditions (not mental disorders or infectious disease) (10 sources) CT of chest abnormal; 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: [Abnormal findings on diagnostic imaging of other specified body structures] 03-25-2025 Chronic Other screening for suspected conditions (not mental disorders or infectious disease) (20 sources) INR raised; 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: [Abnormal coagulation profile] Onset: 1 05-22-2021 Episodic Other upper respiratory disease (20 sources) Bleeding from nose; 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: [Epistaxis] 04-14-2022 Episodic Other upper respiratory disease (8 sources) Epistaxis; 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: [Epistaxis] Episodic Other upper respiratory infections (15 sources) Sphenoidal sinusitis; 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: [Chronic sphenoidal sinusitis] Onset: 1 09-21-2021 Chronic Hilary-; endo-; and myocarditis; cardiomyopathy (20 sources) Cardiomyopathy in diseases classified elsewhere; 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: [Cardiomyopathy] Onset: 1 05-01-2011 Chronic Peripheral and visceral atherosclerosis (10 sources) Disorder of colon; 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: [Acute infarction of large intestine, extent unspecified] 03-18-2025 Episodic Pleurisy; pneumothorax; pulmonary collapse (20 sources) Pleural effusion; 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: [Pleural effusion, not elsewhere classified] Onset: 3 03-08-2023 Episodic Pneumonia (20 sources) Bronchopneumonia, unspecified organism; 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: [Pneumonia] Onset: 1 10-06-2011 Episodic Residual codes; unclassified (20 sources) Obstructive sleep apnea syndrome; 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: [Obstructive sleep apnea (adult) (pediatric)] 10-17-2021 Chronic Residual codes; unclassified (13 sources) Obstructive sleep apnea (adult) (pediatric); 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: [Obstructive sleep apnea (adult)(pediatric)] Chronic Residual codes; unclassified (20 sources) Altered mental status; 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: [Altered mental status, unspecified] Onset: 1 Resolved: 5 09-09-2021 Episodic Residual codes; unclassified (20 sources) Delirium; 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: [Disorientation, unspecified] 07-26-2022 Episodic Residual codes; unclassified (20 sources) History of radiofrequency ablation operation for arrhythmia; 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: [Other specified postprocedural states] 08-07-2013 Episodic Residual codes; unclassified (20 sources) H/O: respiratory disease; 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: [Personal history of other specified conditions] 04-16-2022 Episodic Residual codes; unclassified (20 sources) History of ablation of atrioventricular node; 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: [Other specified postprocedural states] 11-24-2022 Episodic Residual codes; unclassified (10 sources) Early satiety; 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: [Early satiety] 03-18-2025 Episodic Respiratory failure; insufficiency; arrest (adult) (20 sources) Acute respiratory failure; 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: [Acute respiratory failure with hypoxia] Episodic Septicemia (except in labor) (20 sources) Sepsis; 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: [Sepsis, unspecified organism] Onset: 6 Resolved: 6 Episodic Superficial injury; contusion (20 sources) Contusion of abdominal wall, initial encounter; 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: [Abrasion of hand] Onset: 3 Resolved: 6 03-01-2016 Episodic Syncope (20 sources) Syncope; 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: [Syncope and collapse] Onset: 1 Resolved: 5 Episodic Thyroid disorders (1 source) Hypothyroidism, unspecified; 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: [Hypothyroidism, unspecified] Onset: 4 Chronic Unclassified (2 sources) Body mass index (BMI) 30.0-30.9, adult; 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: [Body mass index (BMI) 30.0-30.9, adult] Onset: 5 09-13-2015 Chronic Unclassified (2 sources) Warfarin therapy started; 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] Onset: 7 02-28-2017 Unclassified (2 sources) Tuberculosis screening ; 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: [Encounter for screening for respiratory tuberculosis] Onset: 1 10-06-2011 Unclassified (2 sources) Aftercare ; 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: [Encounter for other specified surgical aftercare] Onset: 6 07-05-2016 Unclassified (2 sources) Drug therapy finding; 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: [intermediate (current) use of 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] Onset: 6 03-01-2016 Unclassified (2 sources) Long-term drug therapy; 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] Onset: 1 05-01-2011 Unclassified (1 source) Cough, unspecified; 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: [Cough, unspecified] Onset: 5 Viral infection (20 sources) Disease caused by 2019-nCoV; 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: [COVID-19] Onset: 1 Resolved: 5 08-28-2021 Episodic Past or Other Problems Problem Classification Problem Date Documented Da te Episodic/Chronic Abdominal hernia (2 sources) Hernia of abdominal wall; 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: [Unspecified abdominal hernia without obstruction or gangrene] Onset: 01-26-2016 03-01-2016 Episodic Gastrointestinal hemorrhage (20 sources) Hematochezia; 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: [Melena] Onset: 03-19-2016 Resolved: 03-30-2016 03-30-2016 Episodic Genitourinary symptoms and ill-defined conditions (16 sources) Wayne hematuria; 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: [Gross hematuria] Onset: 03-09-2016 Resolved: 03-30-2016 03-30-2016 Episodic Mood disorders (13 sources) Mood disorders Onset: 07-07-2016 Resolved: 07-07-2016 07-07-2016 Mycoses (16 sources) Fungemia; 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: [Unspecified mycosis] Onset: 09-24-2021 10-17-2021 Episodic Nonspecific chest pain (2 sources) Chest pain, unspecified; 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: [Chest pain, unspecified] Onset: 05-01-2011 05-01-2011 Episodic Open wounds of head; neck; and trunk (16 sources) Open wound of abdomen; 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: [Unspecified open wound of abdominal wall, unspecified quadrant without penetration into peritoneal cavity, initial encounter] Onset: 03-22-2016 03-22-2016 Episodic Other aftercare (15 sources) Patient encounter status; 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: [Encounter for therapeutic drug level monitoring] Onset: 05-19-2016 Resolved: 06-26-2016 06-26-2016 Episodic Other diseases of kidney and ureters (16 sources) Kidney disease; 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: [Disorder of kidney and ureter, unspecified] Onset: 08-26-2021 08-27-2021 Episodic Other disorders of stomach and duodenum (15 sources) Cyclical vomiting syndrome; 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: [Cyclical vomiting syndrome unrelated to migraine] Onset: 03-29-2016 Resolved: 06-26-2016 06-26-2016 Episodic Other gastrointestinal disorders (2 sources) Anterior abdominal wall mass; 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: [Localized swelling, mass and lump, trunk] Onset: 01-26-2016 03-01-2016 Episodic Other injuries and conditions due to external causes (1 source) Unspecified injury of right wrist, hand and finger(s), initial encounter; 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: [Unspecified injury of right wrist, hand and finger(s), initial encounter] Onset: 07-18-2024 Episodic Hilary-; endo-; and myocarditis; cardiomyopathy (19 sources) Bacterial endocarditis; 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: [Acute infective endocarditis] Onset: 06-27-2016 06-27-2016 Episodic Residual codes; unclassified (20 sources) History of repair of mitral valve; 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: [Other specified postprocedural states] Onset: 11-19-2002 11-24-2022 Episodic Residual codes; unclassified (20 sources) Other specified postprocedural states; 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: [Personal history of surgery to heart and great vessels, presenting hazards to health] Onset: 11-19-2002 Episodic Shock (15 sources) Shock; 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: [Shock, unspecified] Onset: 03-08-2016 Resolved: 03-22-2016 03-22-2016 Episodic Transient cerebral ischemia (16 sources) Transient cerebral ischemia; 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: [Transient cerebral ischemic attack, unspecified] Onset: 05-20-2016 Resolved: 12-18-2024 05-20-2016 Chronic Unclassified (12 sources) Family history of ischemic heart disease and other diseases of the circulatory system; 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: [Body mass index (BMI) 29.0-29.9, adult] Onset: 09-29-2011 07-28-2014 Episodic Urinary tract infections (15 sources) Urinary tract infectious disease; 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: [Urinary tract infection, site not specified] Onset: 03-25-2016 Resolved: 06-26-2016 06-26-2016 Episodic Results Test Name Value Interpretation Reference Range Facility Absolute lymphocyte countOrd ered By: Karthikeyan Turner on 05-27-2025 Lymphocytes Auto (Unsp spec) [#/Vol] 1.55 10*3/uL 0.83-4.51 [facility] Automated lymphocyte count a s percentage of total leukocytesOrdered By: Karthikeyan Turner on 05-27-2025 Lymphocytes/100 WBC Auto (Unsp spec) 14.9 % Low 19-41 [facility] Basophil percentageOrdered B y: Karthikeyan Turner on 05-27-2025 Basophils/100 WBC (Bld) 0.6 % 0-1 [facility] Eosinophil percentageOrdered By: Karthikeyan Turner on 05-27-2025 Eosinophils/100 WBC (Bld) 3.1 % 0-5 [facility] Erythrocyte distribution wid th ratioOrdered By: Karthikeyan Turner on 05-27-2025 Erythrocyte distribution width (RBC) [Ratio] 17.7 % High 11.6-14.6 [facility] Erythrocyte distribution wid th standard deviationOrdered By: Karthikeyan Turner on 05-27-2025 Erythrocyte distribution width (RBC) [Ratio] 62.8 fl High 35.1-43.9 [facility] Hematocrit Auto (Bld) [Volum e fraction]Ordered By: Karthikeyan Turner on 05-27-2025 Hematocrit (Bld) [Volume fraction] 26.8 % Low 40-54 [facility] Hemoglobin measurementOrdere d By: Karthikeyan Turner on 05-27-2025 Hemoglobin (Bld) [Mass/Vol] 8.3 g/dL Low 13.0-16.5 [facility] Immature granulocytes/100 WB C Auto (Bld)Ordered By: Karthikeyan Turner on 05-27-2025 Immature granulocytes/100 WBC (Bld) 0.700 % 0.0-0.9 [facility] MCV (mean corpuscular volume ) determinationOrdered By: Karthikeyan Turner on 05-27-2025 MCV (RBC) [Entitic vol] 98.2 fL High 80-94 [facility] Mean corpuscular hemoglobin (MCH) determinationOrdered By: Karthikeyan Turner on 05-27-2025 MCH (RBC) [Entitic mass] 30.4 pg 27.0-32.0 [facility] Monocyte percentageOrdered B y: Karthikeyan Turner on 05-27-2025 Monocytes/100 WBC (Bld) 11.0 % High 0-10 [facility] Neutrophil percentageOrdered By: Karthikeyan Turner on 05-27-2025 Neutrophils/100 WBC (Bld) 69.7 % 47-70 [facility] Platelet countOrdered By: Holly Turner on 05-27-2025 Platelets (Bld) [#/Vol] 344 10*3/uL 150-450 [facility] Prothrombin timeOrdered By: Karthikeyan Turner on 05-27-2025 PT Coag (PPP) [Time] 37.6 s High 11.7-14.9 [facility] RBC Auto (Bld) [#/Vol]Ordere d By: Karthikeyan Turner on 05-27-2025 RBC (Bld) [#/Vol] 2.73 10*6/uL Low 4.6-6.2 [facility] White blood cell (WBC) count Ordered By: Karthikeyan Turner on 05-27-2025 WBC (Bld) [#/Vol] 10.4 10*3/uL 4.4-11.0 [facility] No Panel InformationOrdered By: Niels Flores on 05-18-2025 3.2 [facility] No Panel InformationOrdered By: Jane Torres on 05-13-2025 2.1 [facility] No Panel InformationOrdered By: Jane Torres on 05-11-2025 1.9 [facility] No Panel InformationOrdered By: Jane Torres on 05-07-2025 2.5 [facility] No Panel InformationOrdered By: Jane Torres on 05-04-2025 4.8 [facility] No Panel InformationOrdered By: aJne Torres on 04-28-2025 4.2 [facility] No Panel InformationOrdered By: Jane Torres on 04-27-2025 2.4 [facility] No Panel Informationon 04-20 3.2 [facility] No Panel InformationOrdered By: Jane Torres on 04-13-2025 2.3 [facility] No Panel InformationOrdered By: Jane Torres on 04-06-2025 2.1 [facility] No Panel InformationOrdered By: Jane Torres on 03-30-2025 2.8 [facility] No Panel InformationOrdered By: Jane Torres on 03-25-2025 2.5 [facility] No Panel InformationOrdered By: Jane Torres on 03-23-2025 1.7 Low [facility] No Panel Informationon 03-16 2.2 [facility] No Panel InformationOrdered By: Jane Torres on 03-12-2025 3.5 [facility] No Panel InformationOrdered By: Jane Torres on 03-10-2025 4.7 High [facility] No Panel InformationOrdered By: Esa Mckeon on 03-09-2025 4.5 [facility] Laboratory - Coagulationon 0 03-06-2025 INR Coag (Bld) [Relative time] 3.2 {INR} High 0.9 - 1.1 [facility] PT Coag (PPP) [Time] 32.9 s High [facility] No Panel Informationon 03-06 [facility] 3.2 [facility] Interpretation and review of laboratory results Abnormal [facility] Radiology Study observation (narrative) [facility] PROTIME-INRon 03-06-2025 INR Coag (PPP) [Relative time] 3.2 {INR} High 0.9-1.1 [facility] Comment on above: Performed By: #### X M #### [facility] (DEFAULT) [address] [address] PT Coag (PPP) [Time] 32.9 s High 11.9-14.2 [facility] Comment on above: Performed By: #### X M #### [facility] (DEFAULT) [address] [address] CALCIUMon 03-05-2025 Calcium [Mass/Vol] 9.4 mg/dL Normal 8.6-10.5 [facility] Comment on above: Performed By: #### X M #### [facility] (DEFAULT) [address] [place] [address] CBC,PLATELETSon 03-05-2025 Hematocrit (Bld) [Volume fraction] 34.2 % Low 39.6-48.8 [facility] Comment on above: Performed By: #### H EMOGC #### [facility] (DEFAULT) [address] [place] [address] Hemoglobin (Bld) [Mass/Vol] 10.6 g/dL Low 13.4-16.8 [facility] Comment on above: Performed By: #### H EMOGC #### [facility] (DEFAULT) [address] [address] MCV (RBC) [Entitic vol] 104.3 fL High 79.0-94.5 O [facility] Comment on above: Performed By: #### H EMOGC #### [facility] (DEFAULT) [address] [address] Mean Cell Hgb 32.3 pg Normal 26.1-33.3 [facility] Comment on above: Performed By: #### H EMOGC #### [facility] (DEFAULT) [address] [address] Mean Cell Hgb Conc 31.0 g/dL Low 31.9-36.5 [facility] Comment on above: Performed By: #### H EMOGC #### [facility] (DEFAULT) [address] [place] [address] Platelet mean volume (Bld) [Entitic vol] 9.2 fL Normal 8.7-12.3 [facility] Comment on above: Performed By: #### H EMOGC #### [facility] (DEFAULT) [address] [address] Platelets (Bld) [#/Vol] 303 10*3/uL Normal 146-337 [facility] Comment on above: Performed By: #### H EMOGC #### [facility] (DEFAULT) [address] [place] [address] RBC (Bld) [#/Vol] 3.28 10*6/uL Low 4.38-5.83 [facility] Comment on above: Performed By: #### H EMO #### [facility] (DEFAULT) [address] [place] [address] RBC Distribution 17.1 % High 10.9-14.3 [facility] Comment on above: Performed By: #### H EMOGC #### [facility] (DEFAULT) [address] [place] [address] WBC (Bld) [#/Vol] 10.65 10*3/uL High 3.73-10.10 [facility] Comment on above: Performed By: #### H EMO #### [facility] (DEFAULT) [address] [place] [address] CHEM 7 (LYTES,BUN,CREA,GLUC) on 03-05-2025 Anion gap [Moles/Vol] 19 mmol/L High 7-17 [facility] Comment on above: Performed By: #### X M #### [facility] (DEFAULT) [address] [place] [address] Chloride [Moles/Vol] 100 mmol/L Normal 98-108 [facility] Comment on above: Performed By: #### X M #### [facility] (DEFAULT) [address] [place] [address] CO2 [Moles/Vol] 25 mmol/L Normal 21-31 [facility] Comment on above: Performed By: #### X M #### [facility] (DEFAULT) [address] [place] [address] Creatinine [Mass/Vol] 5.35 mg/dL High 0.70-1.30 [facility] Comment on above: Performed By: #### X M #### [facility] (DEFAULT) [address] [place] [address] GFR/1.73 sq M.predicted among non-blacks MDRD (S/P/Bld) [Vol rate/Area] 10 mL/min/{1.73_m2} Low >=60 [facility] Comment on above: Result Comment: Repo rted eGFR is based on the CKD-EPI 2020 equation using creatinine, age, and sex. Performed By: #### X M #### [facility] (DEFAULT) [address] [place] [address] Glucose [Mass/Vol] 95 mg/dL Normal Nonfastin -179 mg/dL; Fastin-99 [facility] Comment on above: Performed By: #### X M #### [facility] (DEFAULT) [address] [place] [address] Osmolality [Osmolality] 297 mosm/kg Normal 278-305 [facility] Comment on above: Performed By: #### X M #### [facility] (DEFAULT) [address] [place] [address] Potassium [Moles/Vol] 5.1 mmol/L High 3.5-5.0 [facility] Comment on above: Performed By: #### X M #### [facility] (DEFAULT) [address] [place] [address] Sodium [Moles/Vol] 139 mmol/L Normal 135-145 [facility] Comment on above: Performed By: #### X M #### [facility] (DEFAULT) [address] [place] [address] Urea nitrogen [Mass/Vol] 26 mg/dL High 7-25 [facility] Comment on above: Performed By: #### X M #### [facility] (DEFAULT) [address] [address] Urea nitrogen/Creatinine [Mass ratio] 5 mg/mg Normal [facility] Comment on above: Performed By: #### X M #### [facility] (DEFAULT) [address] [place] [address] Laboratory - Chemistry and C hemistry - challengeon 03-05-2025 Anion gap [Moles/Vol] 19 mmol/L High 7 - 17 mmol/L [facility] Calcium [Mass/Vol] 9.4 mg/dL 8.6 - 10. 5 mg/dL [facility] Chloride [Moles/Vol] 100 mmol/L 98 - 10 8 mmol/L [facility] CO2 [Moles/Vol] 25 mmol/L 21 - 31 mmol/L [facility] Creatinine [Mass/Vol] 5.35 mg/dL High 0.70 - 1.30 mg/dL [facility] Glucose [Mass/Vol] 95 mg/dL 70 - 179 mg/dL [facility] Magnesium [Mass/Vol] 2 mg/dL 1.6 - 2 .6 mg/dL [facility] Osmolality Calc [Osmolality] 297 [facility] Phosphate [Mass/Vol] 4.9 mg/dL High 2.2 - 4 .6 mg/dL [facility] Potassium [Moles/Vol] 5.1 mmol/L High 3.5 - 5.0 mmol/L [facility] Sodium [Moles/Vol] 139 mmol/L 135 - 145 mmol/L [facility] Urea nitrogen [Mass/Vol] 26 mg/dL High 7 - 25 mg/dL [facility] Urea nitrogen/Creatinine [Mass ratio] 5 mg/mg [facility] Laboratory - Coagulationon 0 03-05-2025 aPTT Coag (PPP) [Time] 86.9 s High [facility] INR Coag (Bld) [Relative time] 2.8 {INR} High 0.9 - 1.1 [facility] PT Coag (PPP) [Time] 29.8 s High [facility] Laboratory - Hematology and Cell countson 03-05-2025 Erythrocyte distribution width (RBC) [Ratio] 17.1 % High 10.9 - 14.3 % [facility] Hematocrit (Bld) [Volume fraction] 34.2 % Low 39.6 - 48.8 % [facility] Hemoglobin (Bld) [Mass/Vol] 10.6 g/dL Low 13.4 - 16.8 g/dL [facility] MCH (RBC) [Entitic mass] 32.3 pg 26.1 - 33.3 pg [facility] MCHC (RBC) [Mass/Vol] 31 g/dL Low 31.9 - 36.5 g/dL [facility] MCV (RBC) [Entitic vol] 104.3 fL High 79.0 - 94.5 fL [facility] Platelet mean volume (Bld) [Entitic vol] 9.2 fL 8.7 - 12.3 fL [facility] Platelets (Bld) [#/Vol] 303 10*3/uL 146 - 337 K/uL [facility] RBC (Bld) [#/Vol] 3.28 10*6/uL Low [facility] WBC (Bld) [#/Vol] 10.65 10*3/uL High 3.73 - 10 .10 K/uL [facility] MAGNESIUMon 03-05-2025 Magnesium [Mass/Vol] 2.0 mg/dL Normal 1.6-2.6 [facility] Comment on above: Performed By: #### X M #### [facility] (DEFAULT) [address] [place] [address] No Panel Informationon 03-05 ABO/RH(D) TYPE Positive [facility] Specimen Expiration 03/08/2025 23:59 [facility] Interpretation and review of laboratory results Abnormal [facility] Interpretation and review of laboratory results Abnormal [facility] eGFR, CKD-EPI, Male 10 Low - PINF [facility] Interpretation and review of laboratory results Abnormal [facility] Interpretation and review of laboratory results Normal [facility] Interpretation and review of laboratory results Abnormal [facility] PHOSPHATE, INORGANICon 03-05 Phosphorous 4.9 mg/dL High 2.2-4.6 [facility] Comment on above: Performed By: #### X M #### [facility] (DEFAULT) [address] [place] [address] PROTIME-INRon 03-05-2025 INR Coag (PPP) [Relative time] 2.8 {INR} High 0.9-1.1 [facility] Comment on above: Performed By: #### X M #### [facility] (DEFAULT) [address] [place] [address] PT Coag (PPP) [Time] 29.8 s High 11.9-14.2 [facility] Comment on above: Performed By: #### X M #### [facility] (DEFAULT) [address] [place] [address] PTTon 03-05-2025 aPTT Coag (Bld) [Time] 86.9 s High 24.0-34.[address] [facility] Comment on above: Order Comment: After initiation a PTT should be checked every 6 hours from time of last dose change or, if dose has not changed, 6 hours after last PTT result posted.? The frequent monitoring should occur until PTT in goal range for two consecutive lab draws without dose changes at which time PTTs may be checked no less frequently than every 12 hours.? If dose requires a change, PTT should be monitored at least every 6 hours until titration is no longer indicated, then as directed above.? If PTT above goal range refer to medication administration instructions. Performed By: #### X M #### [facility] (DEFAULT) [address] [place] [id number] TYPE AND SCREENon 03-05-2025 ABO/RH(D) TYPE Positive Normal [facility] Comment on above: Performed By: #### X M #### [facility] (DEFAULT) [address] [place] [phone] Specimen Expiration 03/08/2025 23:59 Normal [facility] Comment on above: Performed By: #### X M #### [facility] (DEFAULT) [address] [place] [address] BLOOD CULTUREon 03-04-2025 Bacteria identified Cx Nom (Unsp spec) NO GROWTH DAY 5 OF 5 Normal [facility] Comment on above: Order Comment: 2 Bot tles (1 Set - consists of 1 Aerobic bottle and 1 Anaerobic bottle) -1st Peripheral DrawFor vacutainer method draw: Fill aerobic bottle first, then anaerobic Performed By: #### X M #### [facility] (DEFAULT) [address] [place] [address] Laboratory - Coagulationon 0 03-04-2025 aPTT Coag (PPP) [Time] 112.5 s High OS [facility] aPTT Coag (PPP) [Time] 94.9 s High OS [facility] aPTT Coag (PPP) [Time] 113.6 s High OS [facility] aPTT Coag (PPP) [Time] 110.5 s High OS [facility] INR Coag (Bld) [Relative time] 2.4 {INR} High 0.9 - 1.1 [facility] PT Coag (PPP) [Time] 26.1 s High [facility] No Panel Informationon 03-04 Interpretation and review of laboratory results Abnormal [facility] Interpretation and review of laboratory results Abnormal [facility] Interpretation and review of laboratory results Abnormal [facility] Interpretation and review of laboratory results Abnormal [facility] Interpretation and review of laboratory results Abnormal [facility] Radiology Study observation (narrative) [facility] PROTIME-INRon 03-04-2025 INR Coag (PPP) [Relative time] 2.4 {INR} High 0.9-1.1 [facility] Comment on above: Performed By: #### X M #### [facility] (DEFAULT) [address] [place] [phone] PT Coag (PPP) [Time] 26.1 s High 11.9-14.2 [facility] Comment on above: Performed By: #### X M #### [facility] (DEFAULT) [address] [address] PTTon 03-04-2025 aPTT Coag (Bld) [Time] 112.5 s High 24.0-34.[address] [facility] Comment on above: Order Comment: After initiation a PTT should be checked every 6 hours from time of last dose change or, if dose has not changed, 6 hours after last PTT result posted.? The frequent monitoring should occur until PTT in goal range for two consecutive lab draws without dose changes at which time PTTs may be checked no less frequently than every 12 hours.? If dose requires a change, PTT should be monitored at least every 6 hours until titration is no longer indicated, then as directed above.? If PTT above goal range refer to medication administration instructions. Performed By: #### X M #### [facility] (DEFAULT) [address] [address] aPTT Coag (Bld) [Time] 94.9 s High 24.0-34.[address] [facility] Comment on above: Order Comment: After initiation a PTT should be checked every 6 hours from time of last dose change or, if dose has not changed, 6 hours after last PTT result posted.? The frequent monitoring should occur until PTT in goal range for two consecutive lab draws without dose changes at which time PTTs may be checked no less frequently than every 12 hours.? If dose requires a change, PTT should be monitored at least every 6 hours until titration is no longer indicated, then as directed above.? If PTT above goal range refer to medication administration instructions. Performed By: #### X M #### [facility] (DEFAULT) [address] [address] aPTT Coag (Bld) [Time] 113.6 s High 24.0-34.[address] [facility] Comment on above: Order Comment: After initiation a PTT should be checked every 6 hours from time of last dose change or, if dose has not changed, 6 hours after last PTT result posted.? The frequent monitoring should occur until PTT in goal range for two consecutive lab draws without dose changes at which time PTTs may be checked no less frequently than every 12 hours.? If dose requires a change, PTT should be monitored at least every 6 hours until titration is no longer indicated, then as directed above.? If PTT above goal range refer to medication administration instructions. Performed By: #### X M #### [facility] ([facility] [address] [address] aPTT Coag (Bld) [Time] 110.5 s High 24.0-34.[address] [facility] Comment on above: Order Comment: After initiation a PTT should be checked every 6 hours from time of last dose change or, if dose has not changed, 6 hours after last PTT result posted.? The frequent monitoring should occur until PTT in goal range for two consecutive lab draws without dose changes at which time PTTs may be checked no less frequently than every 12 hours.? If dose requires a change, PTT should be monitored at least every 6 hours until titration is no longer indicated, then as directed above.? If PTT above goal range refer to medication administration instructions. Performed By: #### X M #### [facility] (DEFAULT) [address] [place] [id number] BLOOD CULTUREon 03-03-2025 Bacteria identified Cx Nom (Unsp spec) NO GROWTH DAY 5 OF 5 Normal [facility] Comment on above: Order Comment: 2 Bot tles (1 Set - consists of 1 Aerobic bottle and 1 Anaerobic bottle) -1st Peripheral DrawFor vacutainer method draw: Fill aerobic bottle first, then anaerobicResults may be compromised due to LOW VOLUME of the BACT\ALERT bottle UNDER 8mLs, which can be associated with decreased sensitivity. The optimal blood volume is 8-10mLs per aerobic/anaerobic blood culture bottle. Performed By: #### X M #### [facility] (DEFAULT) [address] [address] CALCIUMon 03-03-2025 Calcium [Mass/Vol] 9.0 mg/dL Normal 8.6-10.5 [facility] Comment on above: Performed By: #### X M #### [facility] (DEFAULT) [address] [place] [phone] CBC,PLATELETSon 03-03-2025 Hematocrit (Bld) [Volume fraction] 35.1 % Low 39.6-48.8 [facility] Comment on above: Performed By: #### X M #### [facility] (DEFAULT) [address] [place] [address] 64657 Hemoglobin (Bld) [Mass/Vol] 10.9 g/dL Low 13.4-16.8 [facility] Comment on above: Performed By: #### X M #### [facility] (DEFAULT) [address] [place] [address] 89972 MCV (RBC) [Entitic vol] 104.5 fL High 79.0-94.5 [facility] Comment on above: Performed By: #### X M #### [facility] (DEFAULT) [address] [place] [address] 85995 Mean Cell Hgb 32.4 pg Normal 26.1-33.3 [facility] Comment on above: Performed By: #### X M #### [facility] (DEFAULT) [address] [place] [address] 99162 Mean Cell Hgb Conc 31.1 g/dL Low 31.9-36.5 [facility] Comment on above: Performed By: #### X M #### [facility] (DEFAULT) [address] [place] [address] 27789 Platelet mean volume (Bld) [Entitic vol] 9.5 fL Normal 8.7-12.3 [facility] Comment on above: Performed By: #### X M #### [facility] (DEFAULT) [address] [place] [address] Platelets (Bld) [#/Vol] 288 10*3/uL Normal 146-337 [facility] Comment on above: Performed By: #### X M #### [facility] (DEFAULT) [address] [place] [address] 72004 RBC (Bld) [#/Vol] 3.36 10*6/uL Low 4.38-5.83 [facility] Comment on above: Performed By: #### X M #### [facility] (DEFAULT) [address] [place] [address] 22919 RBC Distribution 17.4 % High 10.9-14.3 [facility] Comment on above: Performed By: #### X M #### [facility] (DEFAULT) [address] [place] [address]156 WBC (Bld) [#/Vol] 8.86 10*3/uL Normal 3.73-10.10 [facility] Comment on above: Performed By: #### X M #### [facility] (DEFAULT) [address] [place] [address] CHEM 7 (LYTES,BUN,CREA,GLUC) on 03-03-2025 Anion gap [Moles/Vol] 18 mmol/L High 7-17 [facility] Comment on above: Performed By: #### X M #### [facility] (DEFAULT) [address] [place] [address]69 Chloride [Moles/Vol] 97 mmol/L Low 98-108 [facility] Comment on above: Performed By: #### X M #### [facility] (DEFAULT) [address] [place] [address] CO2 [Moles/Vol] 25 mmol/L Normal 21-31 [facility] Comment on above: Performed By: #### X M #### [facility] (DEFAULT) [address] [place] [address] Creatinine [Mass/Vol] 5.02 mg/dL High 0.70-1.30 [facility] Comment on above: Performed By: #### X M #### [facility] (DEFAULT) [address] [place] [address] 15574 GFR/1.73 sq M.predicted among non-blacks MDRD (S/P/Bld) [Vol rate/Area] 11 mL/min/{1.73_m2} Low >=60 [facility] Comment on above: Result Comment: Repo rted eGFR is based on the CKD-EPI 2020 equation using creatinine, age, and sex. Performed By: #### X M #### [facility] (DEFAULT) [address] [place] [address] Glucose [Mass/Vol] 89 mg/dL Normal Nonfastin -179 mg/dL; Fastin-99 [facility] Comment on above: Performed By: #### X M #### [facility] (DEFAULT) [address] [place] [address] Osmolality [Osmolality] 288 mosm/kg Normal 278-305 [facility] Comment on above: Performed By: #### X M #### [facility] (DEFAULT) [address] [place] [address] Potassium [Moles/Vol] 4.6 mmol/L Normal 3.5-5.0 [facility] Comment on above: Performed By: #### X M #### [facility] (DEFAULT) [address] [place] [address] Sodium [Moles/Vol] 135 mmol/L Normal 135-145 [facility] Comment on above: Performed By: #### X M #### [facility] (DEFAULT) [address] [place] [address] Urea nitrogen [Mass/Vol] 24 mg/dL Normal 7-25 [facility] Comment on above: Performed By: #### X M #### [facility] (DEFAULT) [address] [place] [address] 58525 Urea nitrogen/Creatinine [Mass ratio] 5 mg/mg Normal [facility] Comment on above: Performed By: #### X M #### [facility] (DEFAULT) [address] [place] [address] IRON/IRON BINDING/TRANSFERRI Non 03-03-2025 Iron [Mass/Vol] 59 ug/dL Normal 40-174 [facility] Comment on above: Performed By: #### X M #### [facility] (DEFAULT) [address] [place] [address] Iron Saturation 24 % Normal 20-55 [facility] Comment on above: Performed By: #### X M #### [facility] (DEFAULT) [address] [address] Total Iron Binding Capacity 241 mcg/dL Low 250-425 [facility] Comment on above: Performed By: #### X M #### [facility] (DEFAULT) [address] [address] Transferrin [Mass/Vol] 193 mg/dL Low 200-[address] [facility] Comment on above: Performed By: #### X M #### [facility] (DEFAULT) [address] [address] Laboratory - Chemistry and C hemistry - challengeon 03-03-2025 Iron [Mass/Vol] 59 ug/dL [facility] Iron binding capacity [Mass/Vol] 241 Low [facility] Iron saturation [Mass fraction] 24 % 20 - 55 % [facility] Transferrin [Mass/Vol] 193 mg/dL Low 200 - 400 mg/dL [facility] Anion gap [Moles/Vol] 18 mmol/L High 7 - 17 mmol/L [facility] Chloride [Moles/Vol] 97 mmol/L Low 98 - 10 8 mmol/L [facility] CO2 [Moles/Vol] 25 mmol/L 21 - 31 mmol/L [facility] Creatinine [Mass/Vol] 5.02 mg/dL High 0.70 - 1.30 mg/dL [facility] Glucose [Mass/Vol] 89 mg/dL 70 - 179 mg/dL [facility] Osmolality Calc [Osmolality] 288 [facility] Potassium [Moles/Vol] 4.6 mmol/L 3.5 - 5.0 mmol/L [facility] Sodium [Moles/Vol] 135 mmol/L 135 - 145 mmol/L [facility] Urea nitrogen [Mass/Vol] 24 mg/dL 7 - 25 mg/dL [facility] Urea nitrogen/Creatinine [Mass ratio] 5 mg/mg [facility] Magnesium [Mass/Vol] 1.9 mg/dL 1.6 - 2 .6 mg/dL [facility] Phosphate [Mass/Vol] 4.5 mg/dL 2.2 - 4 .6 mg/dL [facility] Calcium [Mass/Vol] 9 mg/dL 8.6 - 10. 5 mg/dL [facility] Laboratory - Coagulationon 0 03-03-2025 aPTT Coag (PPP) [Time] 94.8 s High [facility] aPTT Coag (PPP) [Time] 80.8 s High [facility] INR Coag (Bld) [Relative time] 2.1 {INR} High 0.9 - 1.1 [facility] PT Coag (PPP) [Time] 23.6 s High [facility] aPTT Coag (PPP) [Time] 102.3 s High [facility] Laboratory - Hematology and Cell countson 03-03-2025 Erythrocyte distribution width (RBC) [Ratio] 17.4 % High 10.9 - 14.3 % [facility] Hematocrit (Bld) [Volume fraction] 35.1 % Low 39.6 - 48.8 % [facility] Hemoglobin (Bld) [Mass/Vol] 10.9 g/dL Low 13.4 - 16.8 g/dL [facility] MCH (RBC) [Entitic mass] 32.4 pg 26.1 - 33.3 pg [facility] MCHC (RBC) [Mass/Vol] 31.1 g/dL Low 31.9 - 36.5 g/dL [facility] MCV (RBC) [Entitic vol] 104.5 fL High 79.0 - 94.5 fL [facility] Platelet mean volume (Bld) [Entitic vol] 9.5 fL 8.7 - 12.3 fL [facility] Platelets (Bld) [#/Vol] 288 10*3/uL 146 - 337 K/uL [facility] RBC (Bld) [#/Vol] 3.36 10*6/uL Low [facility] WBC (Bld) [#/Vol] 8.86 10*3/uL 3.73 - 10. 10 K/uL [facility] MAGNESIUMon 03-03-2025 Magnesium [Mass/Vol] 1.9 mg/dL Normal 1.6-2.6 [facility] Comment on above: Performed By: #### X M #### [facility] (DEFAULT) [address] [place] [address] No Panel Informationon 03-03 Interpretation and review of laboratory results Abnormal [facility] Interpretation and review of laboratory results Abnormal [facility] Interpretation and review of laboratory results Abnormal [facility] Interpretation and review of laboratory results Abnormal [facility] Interpretation and review of laboratory results Abnormal [facility] eGFR, CKD-EPI, Male 11 Low - PINF [facility] Interpretation and review of laboratory results Abnormal [facility] Interpretation and review of laboratory results Normal [facility] Interpretation and review of laboratory results Abnormal [facility] PHOSPHATE, INORGANICon 03-03 Phosphorous 4.5 mg/dL Normal 2.2-4.6 [facility] Comment on above: Performed By: #### X M #### [facility] (DEFAULT) [address] [place] [id number] PROTIME-INRon 03-03-2025 INR Coag (PPP) [Relative time] 2.1 {INR} High 0.9-1.1 [facility] Comment on above: Performed By: #### X M #### [facility] (DEFAULT) [address] [place] [address] PT Coag (PPP) [Time] 23.6 s High 11.9-14.2 [facility] Comment on above: Performed By: #### X M #### [facility] (DEFAULT) [address] [address] PTTon 03-03-2025 aPTT Coag (Bld) [Time] 94.8 s High 24.0-34.[address] [facility] Comment on above: Order Comment: After initiation a PTT should be checked every 6 hours from time of last dose change or, if dose has not changed, 6 hours after last PTT result posted.? The frequent monitoring should occur until PTT in goal range for two consecutive lab draws without dose changes at which time PTTs may be checked no less frequently than every 12 hours.? If dose requires a change, PTT should be monitored at least every 6 hours until titration is no longer indicated, then as directed above.? If PTT above goal range refer to medication administration instructions. Performed By: #### S URGP #### [facility] (DEFAULT) [address] [place] [address] aPTT Coag (Bld) [Time] 80.8 s High 24.0-34.[address] [facility] Comment on above: Order Comment: After initiation a PTT should be checked every 6 hours from time of last dose change or, if dose has not changed, 6 hours after last PTT result posted.? The frequent monitoring should occur until PTT in goal range for two consecutive lab draws without dose changes at which time PTTs may be checked no less frequently than every 12 hours.? If dose requires a change, PTT should be monitored at least every 6 hours until titration is no longer indicated, then as directed above.? If PTT above goal range refer to medication administration instructions. Performed By: #### X M #### [facility] (DEFAULT) [address] [place] [address] aPTT Coag (Bld) [Time] 102.3 s High 24.0-34.[address] [facility] Comment on above: Order Comment: After initiation a PTT should be checked every 6 hours from time of last dose change or, if dose has not changed, 6 hours after last PTT result posted.? The frequent monitoring should occur until PTT in goal range for two consecutive lab draws without dose changes at which time PTTs may be checked no less frequently than every 12 hours.? If dose requires a change, PTT should be monitored at least every 6 hours until titration is no longer indicated, then as directed above.? If PTT above goal range refer to medication administration instructions. Performed By: #### X M #### [facility] (DEFAULT) [address] [address] Bacteria identified Cx Nom ( Bld)Ordered By: Kia Higuera on 03-02-2025 Bacteria identified Cx Nom (Unsp spec) Growth [facility] Bacteria identified Cx Nom (Unsp spec) METHICILLIN RESISTANT STAPHYLOCOCCUS EPIDERMIDIS Abnormal [facility] Interpretation and review of laboratory results Abnormal [facility] Bacteria identified Cx Nom ( Unsp spec)Ordered By: Jaelyn Rodrigez on 03-02-2025 Microscopic observation Other stain Nom (Unsp spec) Neutrophils, Light [facility] Microscopic observation Other stain Nom (Unsp spec) No organisms seen [facility] CHEM 6 (LYTES, BUN CREA)on 0 03-02-2025 Anion gap [Moles/Vol] 21 mmol/L High 7-17 [facility] Comment on above: Performed By: #### X M #### [facility] (DEFAULT) [address] [place] [address] Chloride [Moles/Vol] 97 mmol/L Low 98-108 [facility] Comment on above: Performed By: #### X M #### [facility] (DEFAULT) [address] [place] [address] CO2 [Moles/Vol] 24 mmol/L Normal 21-31 [facility] Comment on above: Performed By: #### X M #### [facility] (DEFAULT) [address] [place] [address]951 Creatinine [Mass/Vol] 7.34 mg/dL High 0.70-1.30 [facility] Comment on above: Performed By: #### X M #### [facility] (DEFAULT) [address] [place] [address]457 GFR/1.73 sq M.predicted among non-blacks MDRD (S/P/Bld) [Vol rate/Area] 7 mL/min/{1.73_m2} Low >=60 [facility] Comment on above: Result Comment: Repo rted eGFR is based on the CKD-EPI 2020 equation using creatinine, age, and sex. Performed By: #### X M #### [facility] (DEFAULT) [address] [place] [address] Potassium [Moles/Vol] 4.6 mmol/L Normal 3.5-5.0 [facility] Comment on above: Performed By: #### X M #### [facility] (DEFAULT) [address] [place] [address] Sodium [Moles/Vol] 137 mmol/L Normal 135-145 [facility] Comment on above: Performed By: #### X M #### [facility] (DEFAULT) [address] [place] [address] 21747 Urea nitrogen [Mass/Vol] 44 mg/dL High 7-25 [facility] Comment on above: Performed By: #### X M #### [facility] (DEFAULT) [address] [place] [address]996 Urea nitrogen/Creatinine [Mass ratio] 6 mg/mg Normal [facility] Comment on above: Performed By: #### X M #### [facility] (DEFAULT) [address] [address] HEMOGLOBIN & HEMATOCRITon Hematocrit (Bld) [Volume fraction] 30.8 % Low 39.6-48.8 [facility] Comment on above: Performed By: #### X M #### [facility] (DEFAULT) [address] [place] [address] Hemoglobin (Bld) [Mass/Vol] 9.7 g/dL Low 13.4-16.8 [facility] Comment on above: Performed By: #### X M #### [facility] (DEFAULT) [address] [place] [address] Laboratory - Chemistry and C hemistry - challengeon 03-02-2025 Anion gap [Moles/Vol] 21 mmol/L High 7 - 17 mmol/L [facility] Chloride [Moles/Vol] 97 mmol/L Low 98 - 10 8 mmol/L [facility] CO2 [Moles/Vol] 24 mmol/L 21 - 31 mmol/L [facility] Creatinine [Mass/Vol] 7.34 mg/dL High 0.70 - 1.30 mg/dL [facility] Potassium [Moles/Vol] 4.6 mmol/L 3.5 - 5.0 mmol/L [facility] Sodium [Moles/Vol] 137 mmol/L 135 - 145 mmol/L [facility] Urea nitrogen [Mass/Vol] 44 mg/dL High 7 - 25 mg/dL [facility] Urea nitrogen/Creatinine [Mass ratio] 6 mg/mg [facility] Laboratory - CoagulationOrde red By: Rae Meza on 03-02-2025 aPTT Coag (PPP) [Time] 88.4 s High [facility] Laboratory - Coagulationon 0 03-02-2025 INR Coag (Bld) [Relative time] 2.1 {INR} High 0.9 - 1.1 [facility] PT Coag (PPP) [Time] 23 s High [facility] aPTT Coag (PPP) [Time] 61.2 s High [facility] aPTT Coag (PPP) [Time] 130.2 s High [facility] INR Coag (Bld) [Relative time] 1.9 {INR} High 0.9 - 1.1 [facility] PT Coag (PPP) [Time] 21.4 s High [facility] Laboratory - CoagulationOrde red By: Jenni Calle on 03-02-2025 aPTT Coag (PPP) [Time] 53 s High [facility] - Hematology and Cell countson 03-02-2025 Hematocrit (Bld) [Volume fraction] 30.8 % Low 39.6 - 48.8 % [facility] Hemoglobin (Bld) [Mass/Vol] 9.7 g/dL Low 13.4 - 16.8 g/dL [facility] Laboratory - Microbiology an d Antimicrobial susceptibilityOrdered By: Jaelyn Rodrigez on 03-02-2025 Bacteria identified Cx Nom (Unsp spec) NO GROWTH DAY 2 OF 2 [facility] No Panel InformationOrdered By: Rae Meza on 03-02-2025 Interpretation and review of laboratory results Abnormal [facility] No Panel Informationon 03-02 Interpretation and review of laboratory results Abnormal [facility] Interpretation and review of laboratory results Abnormal [facility] eGFR, CKD-EPI, Male 7 Low - PINF [facility] Interpretation and review of laboratory results Abnormal [facility] Interpretation and review of laboratory results Abnormal [facility] Interpretation and review of laboratory results Abnormal [facility] ABO/RH(D) TYPE Positive [facility] Specimen Expiration 03/05/2025 05:08 [facility] Interpretation and review of laboratory results Abnormal [facility] No Panel InformationOrdered By: Jenni Calle on 03-02-2025 Interpretation and review of laboratory results Abnormal [facility] PROTIME-INRon 03-02-2025 INR Coag (PPP) [Relative time] 2.1 {INR} High 0.9-1.1 [facility] Comment on above: Performed By: #### X M #### [facility] (DEFAULT) [address] [place] [phone] PT Coag (PPP) [Time] 23.0 s High 11.9-14.2 [facility] Comment on above: Performed By: #### X M #### [facility] (DEFAULT) [address] [place] [address] 13394 INR Coag (PPP) [Relative time] 1.9 {INR} High 0.9-1.1 [facility] Comment on above: Performed By: #### G EN #### [facility] (DEFAULT) [address] [place] [address] PT Coag (PPP) [Time] 21.4 s High 11.9-14.2 [facility] Comment on above: Performed By: #### G EN #### [facility] (DEFAULT) [address] [place] [address] PTTon 03-02-2025 aPTT Coag (Bld) [Time] 88.4 s High 24.0-34.[address] [facility] Comment on above: Order Comment: After initiation a PTT should be checked every 6 hours from time of last dose change or, if dose has not changed, 6 hours after last PTT result posted.? The frequent monitoring should occur until PTT in goal range for two consecutive lab draws without dose changes at which time PTTs may be checked no less frequently than every 12 hours.? If dose requires a change, PTT should be monitored at least every 6 hours until titration is no longer indicated, then as directed above.? If PTT above goal range refer to medication administration instructions. Performed By: #### X M #### [facility] (DEFAULT) [address] [place] [phone] aPTT Coag (Bld) [Time] 61.2 s High 24.0-34.[address] [facility] Comment on above: Order Comment: After initiation a PTT should be checked every 6 hours from time of last dose change or, if dose has not changed, 6 hours after last PTT result posted.? The frequent monitoring should occur until PTT in goal range for two consecutive lab draws without dose changes at which time PTTs may be checked no less frequently than every 12 hours.? If dose requires a change, PTT should be monitored at least every 6 hours until titration is no longer indicated, then as directed above.? If PTT above goal range refer to medication administration instructions. Performed By: #### X M #### [facility] (DEFAULT) [address] [address] aPTT Coag (Bld) [Time] 53.0 s High 24.0-34.[address] [facility] Comment on above: Order Comment: After initiation a PTT should be checked every 6 hours from time of last dose change or, if dose has not changed, 6 hours after last PTT result posted.? The frequent monitoring should occur until PTT in goal range for two consecutive lab draws without dose changes at which time PTTs may be checked no less frequently than every 12 hours.? If dose requires a change, PTT should be monitored at least every 6 hours until titration is no longer indicated, then as directed above.? If PTT above goal range refer to medication administration instructions. Performed By: #### [facility] #### [facility] (DEFAULT) [address] [address] aPTT Coag (Bld) [Time] 130.2 s High 24.0-34.[address] [facility] Comment on above: Performed By: #### G EN #### [facility] (DEFAULT) [address] [address] TYPE AND SCREENon 03-02-2025 ABO/RH(D) TYPE Positive [facility] Comment on above: Performed By: #### X M #### [facility] (DEFAULT) [address] [address] Specimen Expiration 03/05/2025 05:08 [facility] Comment on above: Performed By: #### X M #### [facility] (DEFAULT) [address] [address] Laboratoryon 03-01-2025 Methicillin resistance mecA+mecC genes Molgen Ql (Islt/Spec) Detected Abnormal Not Detected [facility] Laboratory - Coagulationon 0 03-01-2025 aPTT Coag (PPP) [Time] 103.5 s High [facility] aPTT Coag (PPP) [Time] 57.2 s High OS [facility] Laboratory - CoagulationOrde red By: Flaquita Cook on 03-01-2025 aPTT Coag (PPP) [Time] 102.3 s High [facility] Laboratory - Microbiology an d Antimicrobial susceptibilityon 03-01-2025 C. albicans DNA RENETTA+non-probe Ql (Pos bld culture) Not detected Not Detected [facility] C. glabrata DNA RENETTA+non-probe Ql (Pos bld culture) Not detected Not Detected [facility] C. krusei DNA RENETTA+non-probe Ql (Pos bld culture) Not detected Not Detected [facility] C. parapsilosis DNA RENETTA+non-probe Ql (Pos bld culture) Not detected Not Detected [facility] C. tropicalis DNA RENETTA+non-probe Ql (Pos bld culture) Not detected Not Detected [facility] E. cloacae complex DNA RENETTA+non-probe Ql (Pos bld culture) Not detected Not Detected [facility] E. coli DNA RENETTA+non-probe Ql (Pos bld culture) Not detected Not Detected [facility] H. influenzae DNA RENETTA+non-probe Ql (Pos bld culture) Not detected Not Detected [facility] K. oxytoca DNA RENETTA+non-probe Ql (Pos bld culture) Not detected Not Detected [facility] L. monocytogenes DNA RENETTA+non-probe Ql (Pos bld culture) Not detected Not Detected [facility] N. meningitidis DNA RENETTA+non-probe Ql (Pos bld culture) Not detected Not Detected [facility] P. aeruginosa DNA RENETTA+non-probe Ql (Pos bld culture) Not detected Not Detected [facility] Proteus sp DNA RENETTA+non-probe Ql (Pos bld culture) Not detected Not Detected [facility] S. agalactiae DNA RENETTA+non-probe Ql (Pos bld culture) Not detected Not Detected [facility] S. aureus DNA RENETTA+non-probe Ql (Pos bld culture) Not detected Not Detected [facility] S. marcescens DNA RENETTA+non-probe Ql (Pos bld culture) Not detected [facility] S. pneumoniae DNA RENETTA+non-probe Ql (Pos bld culture) Not detected [facility] S. pyogenes DNA RENETTA+non-probe Ql (Pos bld culture) Not detected Not Detected [facility] Staphylococcus sp DNA RENETTA+non-probe Ql (Pos bld culture) Detected Abnormal Not Detected [facility] Streptococcus sp DNA RENETTA+non-probe Ql (Pos bld culture) Not detected Not Detected [facility] No Panel Informationon 03-01 Interpretation and review of laboratory results Abnormal [facility] Acinetobacter calcoaceticus-baumannii complex DNA Not detected Not Detected [facility] Bacteroides fragilis DNA Not detected Not Detected [facility] Marika auris DNA Not detected Not Detected [facility] Cryptococcus jaime/neoformans DNA Not detected Not Detected [facility] Enterobacterales DNA Not detected Not Detected [facility] Enterococcus faecalis DNA Not detected Not Detected [facility] Enterococcus faecium DNA Not detected Not Detected [facility] Interpretation and review of laboratory results Abnormal [facility] Klebsiella aerogenes DNA Not detected Not Detected [facility] Klebsiella pneumoniae group DNA Not detected Not Detected [facility] Salmonella species DNA Not detected Not Detecte d [facility] Staphylococcus epidermidis DNA Detected Abnormal Not Detected [facility] Staphylococcus lugdunensis DNA Not detected Not Detected [facility] Stenotrophomonas maltophilia DNA Not detected Not Detected [facility] Interpretation and review of laboratory results Abnormal [facility] No Panel InformationOrdered By: Flaquita Cook on 03-01-2025 Interpretation and review of [facility] results [facility] aPTT Coag (Bld) [Time] 103.5 s High 24.0-34.[address] [facility] Comment on above: Order Comment: After initiation a PTT should be checked every 6 hours from time of last dose change or, if dose has not changed, 6 hours after last PTT result posted.? The frequent monitoring should occur until PTT in goal range for two consecutive lab draws without dose changes at which time PTTs may be checked no less frequently than every 12 hours.? If dose requires a change, PTT should be monitored at least every 6 hours until titration is no longer indicated, then as directed above.? If PTT above goal range refer to medication administration instructions. Performed By: #### X M #### [facility] (DEFAULT) [address] [address] aPTT Coag (Bld) [Time] 102.3 s High 24.0-34.[address] [facility] Comment on above: Order Comment: After initiation a PTT should be checked every 6 hours from time of last dose change or, if dose has not changed, 6 hours after last PTT result posted.? The frequent monitoring should occur until PTT in goal range for two consecutive lab draws without dose changes at which time PTTs may be checked no less frequently than every 12 hours.? If dose requires a change, PTT should be monitored at least every 6 hours until titration is no longer indicated, then as directed above.? If PTT above goal range refer to medication administration instructions. Performed By: #### S URGP #### [facility] (DEFAULT) [address] [address] aPTT Coag (Bld) [Time] 57.2 s High 24.0-34.[address] [facility] Comment on above: Order Comment: After initiation a PTT should be checked every 6 hours from time of last dose change or, if dose has not changed, 6 hours after last PTT result posted.? The frequent monitoring should occur until PTT in goal range for two consecutive lab draws without dose changes at which time PTTs may be checked no less frequently than every 12 hours.? If dose requires a change, PTT should be monitored at least every 6 hours until titration is no longer indicated, then as directed above.? If PTT above goal range refer to medication administration instructions. Performed By: #### P TT #### [facility] (DEFAULT) [address] [address] BACTERIAL CULTURE AND DIRECT SMEAR, LESION, TISSUE, DEVICEon 02-28-2025 Bacteria identified Cx Nom (Unsp spec) NO GROWTH DAY 2 OF 2 Normal [facility] Comment on above: Performed By: #### G EN #### [facility] (DEFAULT) [address] [address] Microscopic observation Gram stain Nom (Unsp spec) Normal [facility] Comment on above: Result Comment: Neut rophils, Light No organisms seen Performed By: #### G EN #### [facility] (DEFAULT) [address] [address] BLOOD CULTUREon 02-28-2025 Bacteria identified Cx Nom (Unsp spec) Normal [facility] Comment on above: Order Comment: 2 Bot tles (1 Set - consists of 1 Aerobic bottle and 1 Anaerobic bottle) -1st Peripheral DrawFor vacutainer method draw: Fill aerobic bottle first, then anaerobicResults may be compromised due to HIGH VOLUME of the BACT\ALERT bottle EXCEEDING 10mLs, which can be associated with increased contamination. The optimal blood volume is 8-10mLs per aerobic/anaerobic blood culture bottle. Result Comment: Grow th 4650 Methicillin Resistant Staphylococcus epidermidis The recovery of this organism(s) from a single blood culture most likely represents contamination during collection. Susceptibility testing will not be performed. Please evaluate carefully prior to initiation or continuation of microbial therapy. If further workup is needed, please contact the blood culture area at [phone] within 2 days. Performed By: #### X M #### [facility] (DEFAULT) [address] [address] BLOOD CULTURE IDENTIFICATION PANELon 02-28-2025 Acinetobacter calcoaceticus-baumannii complex DNA Not detected Normal Not Detected [facility] Comment on above: Order Comment: 2 Bot tles (1 Set - consists of 1 Aerobic bottle and 1 Anaerobic bottle) -1st Peripheral DrawFor vacutainer method draw: Fill aerobic bottle first, then anaerobicResults may be compromised due to HIGH VOLUME of the BACT\ALERT bottle EXCEEDING 10mLs, which can be associated with increased contamination. The optimal blood volume is 8-10mLs per aerobic/anaerobic blood culture bottle.This test was performed using a multiplex nucleic acid test that detects and identifies multiple bacterial and yeast nucleic acids and select genetic determinants associated with antimicrobial resistance. Culture is necessary to confirm susceptibilities and identify organisms not detected by this test. A Not Detected result for a genetic marker of antimicrobial resistance does not indicate susceptibility to associated antimicrobial drugs or drug classes. Results should be used in conjunction with other clinical and laboratory findings. Performed By: #### X M #### [facility] (DEFAULT) [address] [place] [address] Bacteroides fragilis DNA Not detected Normal Not Detected [facility] Comment on above: Order Comment: 2 Bot tles (1 Set - consists of 1 Aerobic bottle and 1 Anaerobic bottle) -1st Peripheral DrawFor vacutainer method draw: Fill aerobic bottle first, then anaerobicResults may be compromised due to HIGH VOLUME of the BACT\ALERT bottle EXCEEDING 10mLs, which can be associated with increased contamination. The optimal blood volume is 8-10mLs per aerobic/anaerobic blood culture bottle.This test was performed using a multiplex nucleic acid test that detects and identifies multiple bacterial and yeast nucleic acids and select genetic determinants associated with antimicrobial resistance. Culture is necessary to confirm susceptibilities and identify organisms not detected by this test. A Not Detected result for a genetic marker of antimicrobial resistance does not indicate susceptibility to associated antimicrobial drugs or drug classes. Results should be used in conjunction with other clinical and laboratory findings. Performed By: #### X M #### [facility] (DEFAULT) [address] [place] [id number] Marika albicans DNA Not detected Normal Not Detected [facility] Comment on above: Order Comment: 2 Bot tles (1 Set - consists of 1 Aerobic bottle and 1 Anaerobic bottle) -1st Peripheral DrawFor vacutainer method draw: Fill aerobic bottle first, then anaerobicResults may be compromised due to HIGH VOLUME of the BACT\ALERT bottle EXCEEDING 10mLs, which can be associated with increased contamination. The optimal blood volume is 8-10mLs per aerobic/anaerobic blood culture bottle.This test was performed using a multiplex nucleic acid test that detects and identifies multiple bacterial and yeast nucleic acids and select genetic determinants associated with antimicrobial resistance. Culture is necessary to confirm susceptibilities and identify organisms not detected by this test. A Not Detected result for a genetic marker of antimicrobial resistance does not indicate susceptibility to associated antimicrobial drugs or drug classes. Results should be used in conjunction with other clinical and laboratory findings. Performed By: #### X M #### [facility] (DEFAULT) [address] [address] Marika auris DNA Not detected Normal Not Detected [facility] Comment on above: Order Comment: 2 Bot tles (1 Set - consists of 1 Aerobic bottle and 1 Anaerobic bottle) -1st Peripheral DrawFor vacutainer method draw: Fill aerobic bottle first, then anaerobicResults may be compromised due to HIGH VOLUME of the BACT\ALERT bottle EXCEEDING 10mLs, which can be associated with increased contamination. The optimal blood volume is 8-10mLs per aerobic/anaerobic blood culture bottle.This test was performed using a multiplex nucleic acid test that detects and identifies multiple bacterial and yeast nucleic acids and select genetic determinants associated with antimicrobial resistance. Culture is necessary to confirm susceptibilities and identify organisms not detected by this test. A Not Detected result for a genetic marker of antimicrobial resistance does not indicate susceptibility to associated antimicrobial drugs or drug classes. Results should be used in conjunction with other clinical and laboratory findings. Performed By: #### X M #### [facility] (DEFAULT) [address] [address] Marika glabrata DNA Not detected Normal Not Detected [facility] Comment on above: Order Comment: 2 Bot tles (1 Set - consists of 1 Aerobic bottle and 1 Anaerobic bottle) -1st Peripheral DrawFor vacutainer method draw: Fill aerobic bottle first, then anaerobicResults may be compromised due to HIGH VOLUME of the BACT\ALERT bottle EXCEEDING 10mLs, which can be associated with increased contamination. The optimal blood volume is 8-10mLs per aerobic/anaerobic blood culture bottle.This test was performed using a multiplex nucleic acid test that detects and identifies multiple bacterial and yeast nucleic acids and select genetic determinants associated with antimicrobial resistance. Culture is necessary to confirm susceptibilities and identify organisms not detected by this test. A Not Detected result for a genetic marker of antimicrobial resistance does not indicate susceptibility to associated antimicrobial drugs or drug classes. Results should be used in conjunction with other clinical and laboratory findings. Performed By: #### X M #### [facility] (DEFAULT) [address] [address] Marika krusei DNA Not detected Normal Not Detected [facility] Comment on above: Order Comment: 2 Bot tles (1 Set - consists of 1 Aerobic bottle and 1 Anaerobic bottle) -1st Peripheral DrawFor vacutainer method draw: Fill aerobic bottle first, then anaerobicResults may be compromised due to HIGH VOLUME of the BACT\ALERT bottle EXCEEDING 10mLs, which can be associated with increased contamination. The optimal blood volume is 8-10mLs per aerobic/anaerobic blood culture bottle.This test was performed using a multiplex nucleic acid test that detects and identifies multiple bacterial and yeast nucleic acids and select genetic determinants associated with antimicrobial resistance. Culture is necessary to confirm susceptibilities and identify organisms not detected by this test. A Not Detected result for a genetic marker of antimicrobial resistance does not indicate susceptibility to associated antimicrobial drugs or drug classes. Results should be used in conjunction with other clinical and laboratory findings. Performed By: #### X M #### [facility] (DEFAULT) [address] [address] Marika parapsilosis DNA Not detected Normal Not Detected [facility] Comment on above: Order Comment: 2 Bot tles (1 Set - consists of 1 Aerobic bottle and 1 Anaerobic bottle) -1st Peripheral DrawFor vacutainer method draw: Fill aerobic bottle first, then anaerobicResults may be compromised due to HIGH VOLUME of the BACT\ALERT bottle EXCEEDING 10mLs, which can be associated with increased contamination. The optimal blood volume is 8-10mLs per aerobic/anaerobic blood culture bottle.This test was performed using a multiplex nucleic acid test that detects and identifies multiple bacterial and yeast nucleic acids and select genetic determinants associated with antimicrobial resistance. Culture is necessary to confirm susceptibilities and identify organisms not detected by this test. A Not Detected result for a genetic marker of antimicrobial resistance does not indicate susceptibility to associated antimicrobial drugs or drug classes. Results should be used in conjunction with other clinical and laboratory findings. Performed By: #### X M #### [facility] (DEFAULT) [address] [address] Marika tropicalis DNA Not detected Normal Not Detecte d [facility] Comment on above: Order Comment: 2 Bot tles (1 Set - consists of 1 Aerobic bottle and 1 Anaerobic bottle) -1st Peripheral DrawFor vacutainer method draw: Fill aerobic bottle first, then anaerobicResults may be compromised due to HIGH VOLUME of the BACT\ALERT bottle EXCEEDING 10mLs, which can be associated with increased contamination. The optimal blood volume is 8-10mLs per aerobic/anaerobic blood culture bottle.This test was performed using a multiplex nucleic acid test that detects and identifies multiple bacterial and yeast nucleic acids and select genetic determinants associated with antimicrobial resistance. Culture is necessary to confirm susceptibilities and identify organisms not detected by this test. A Not Detected result for a genetic marker of antimicrobial resistance does not indicate susceptibility to associated antimicrobial drugs or drug classes. Results should be used in conjunction with other clinical and laboratory findings. Performed By: #### X M #### [facility] (DEFAULT) [address] [place] [address] Cryptococcus jaime/neoformans DNA Not detected Normal Not Detected [facility] Comment on above: Order Comment: 2 Bot tles (1 Set - consists of 1 Aerobic bottle and 1 Anaerobic bottle) -1st Peripheral DrawFor vacutainer method draw: Fill aerobic bottle first, then anaerobicResults may be compromised due to HIGH VOLUME of the BACT\ALERT bottle EXCEEDING 10mLs, which can be associated with increased contamination. The optimal blood volume is 8-10mLs per aerobic/anaerobic blood culture bottle.This test was performed using a multiplex nucleic acid test that detects and identifies multiple bacterial and yeast nucleic acids and select genetic determinants associated with antimicrobial resistance. Culture is necessary to confirm susceptibilities and identify organisms not detected by this test. A Not Detected result for a genetic marker of antimicrobial resistance does not indicate susceptibility to associated antimicrobial drugs or drug classes. Results should be used in conjunction with other clinical and laboratory findings. Performed By: #### X M #### [facility] (DEFAULT) [address] [place] [address] Enterobacter cloacae complex DNA Not detected Normal Not Detected [facility] Comment on above: Order Comment: 2 Bot tles (1 Set - consists of 1 Aerobic bottle and 1 Anaerobic bottle) -1st Peripheral DrawFor vacutainer method draw: Fill aerobic bottle first, then anaerobicResults may be compromised due to HIGH VOLUME of the BACT\ALERT bottle EXCEEDING 10mLs, which can be associated with increased contamination. The optimal blood volume is 8-10mLs per aerobic/anaerobic blood culture bottle.This test was performed using a multiplex nucleic acid test that detects and identifies multiple bacterial and yeast nucleic acids and select genetic determinants associated with antimicrobial resistance. Culture is necessary to confirm susceptibilities and identify organisms not detected by this test. A Not Detected result for a genetic marker of antimicrobial resistance does not indicate susceptibility to associated antimicrobial drugs or drug classes. Results should be used in conjunction with other clinical and laboratory findings. Performed By: #### X M #### [facility] (DEFAULT) [address] [place] [id number] Enterobacterales DNA Not detected Normal Not Detected [facility] Comment on above: Order Comment: 2 Bot tles (1 Set - consists of 1 Aerobic bottle and 1 Anaerobic bottle) -1st Peripheral DrawFor vacutainer method draw: Fill aerobic bottle first, then anaerobicResults may be compromised due to HIGH VOLUME of the BACT\ALERT bottle EXCEEDING 10mLs, which can be associated with increased contamination. The optimal blood volume is 8-10mLs per aerobic/anaerobic blood culture bottle.This test was performed using a multiplex nucleic acid test that detects and identifies multiple bacterial and yeast nucleic acids and select genetic determinants associated with antimicrobial resistance. Culture is necessary to confirm susceptibilities and identify organisms not detected by this test. A Not Detected result for a genetic marker of antimicrobial resistance does not indicate susceptibility to associated antimicrobial drugs or drug classes. Results should be used in conjunction with other clinical and laboratory findings. Performed By: #### X M #### [facility] (DEFAULT) [address] [address] Enterococcus faecalis DNA Not detected Normal Not Detected [facility] Comment on above: Order Comment: 2 Bot tles (1 Set - consists of 1 Aerobic bottle and 1 Anaerobic bottle) -1st Peripheral DrawFor vacutainer method draw: Fill aerobic bottle first, then anaerobicResults may be compromised due to HIGH VOLUME of the BACT\ALERT bottle EXCEEDING 10mLs, which can be associated with increased contamination. The optimal blood volume is 8-10mLs per aerobic/anaerobic blood culture bottle.This test was performed using a multiplex nucleic acid test that detects and identifies multiple bacterial and yeast nucleic acids and select genetic determinants associated with antimicrobial resistance. Culture is necessary to confirm susceptibilities and identify organisms not detected by this test. A Not Detected result for a genetic marker of antimicrobial resistance does not indicate susceptibility to associated antimicrobial drugs or drug classes. Results should be used in conjunction with other clinical and laboratory findings. Performed By: #### X M #### [facility] (DEFAULT) [address] [place] [id number] Enterococcus faecium DNA Not detected Normal Not Detected [facility] Comment on above: Order Comment: 2 Bot tles (1 Set - consists of 1 Aerobic bottle and 1 Anaerobic bottle) -1st Peripheral DrawFor vacutainer method draw: Fill aerobic bottle first, then anaerobicResults may be compromised due to HIGH VOLUME of the BACT\ALERT bottle EXCEEDING 10mLs, which can be associated with increased contamination. The optimal blood volume is 8-10mLs per aerobic/anaerobic blood culture bottle.This test was performed using a multiplex nucleic acid test that detects and identifies multiple bacterial and yeast nucleic acids and select genetic determinants associated with antimicrobial resistance. Culture is necessary to confirm susceptibilities and identify organisms not detected by this test. A Not Detected result for a genetic marker of antimicrobial resistance does not indicate susceptibility to associated antimicrobial drugs or drug classes. Results should be used in conjunction with other clinical and laboratory findings. Performed By: #### X M #### [facility] (DEFAULT) [address] [place] [id number] Escherichia coli DNA Not detected Normal Not Detected [facility] Comment on above: Order Comment: 2 Bot tles (1 Set - consists of 1 Aerobic bottle and 1 Anaerobic bottle) -1st Peripheral DrawFor vacutainer method draw: Fill aerobic bottle first, then anaerobicResults may be compromised due to HIGH VOLUME of the BACT\ALERT bottle EXCEEDING 10mLs, which can be associated with increased contamination. The optimal blood volume is 8-10mLs per aerobic/anaerobic blood culture bottle.This test was performed using a multiplex nucleic acid test that detects and identifies multiple bacterial and yeast nucleic acids and select genetic determinants associated with antimicrobial resistance. Culture is necessary to confirm susceptibilities and identify organisms not detected by this test. A Not Detected result for a genetic marker of antimicrobial resistance does not indicate susceptibility to associated antimicrobial drugs or drug classes. Results should be used in conjunction with other clinical and laboratory findings. Performed By: #### X M #### [facility] (DEFAULT) [address] [address] Haemophilus influenzae DNA Not detected Normal Not Detected [facility] Comment on above: Order Comment: 2 Bot tles (1 Set - consists of 1 Aerobic bottle and 1 Anaerobic bottle) -1st Peripheral DrawFor vacutainer method draw: Fill aerobic bottle first, then anaerobicResults may be compromised due to HIGH VOLUME of the BACT\ALERT bottle EXCEEDING 10mLs, which can be associated with increased contamination. The optimal blood volume is 8-10mLs per aerobic/anaerobic blood culture bottle.This test was performed using a multiplex nucleic acid test that detects and identifies multiple bacterial and yeast nucleic acids and select genetic determinants associated with antimicrobial resistance. Culture is necessary to confirm susceptibilities and identify organisms not detected by this test. A Not Detected result for a genetic marker of antimicrobial resistance does not indicate susceptibility to associated antimicrobial drugs or drug classes. Results should be used in conjunction with other clinical and laboratory findings. Performed By: #### X M #### [facility] (DEFAULT) [address] [address] Klebsiella aerogenes DNA Not detected Normal Not Detected [facility] Comment on above: Order Comment: 2 Bot tles (1 Set - consists of 1 Aerobic bottle and 1 Anaerobic bottle) -1st Peripheral DrawFor vacutainer method draw: Fill aerobic bottle first, then anaerobicResults may be compromised due to HIGH VOLUME of the BACT\ALERT bottle EXCEEDING 10mLs, which can be associated with increased contamination. The optimal blood volume is 8-10mLs per aerobic/anaerobic blood culture bottle.This test was performed using a multiplex nucleic acid test that detects and identifies multiple bacterial and yeast nucleic acids and select genetic determinants associated with antimicrobial resistance. Culture is necessary to confirm susceptibilities and identify organisms not detected by this test. A Not Detected result for a genetic marker of antimicrobial resistance does not indicate susceptibility to associated antimicrobial drugs or drug classes. Results should be used in conjunction with other clinical and laboratory findings. Performed By: #### X M #### [facility] (DEFAULT) [address] [address] Klebsiella oxytoca DNA Not detected Normal Not Detecte d [facility] Comment on above: Order Comment: 2 Bot tles (1 Set - consists of 1 Aerobic bottle and 1 Anaerobic bottle) -1st Peripheral DrawFor vacutainer method draw: Fill aerobic bottle first, then anaerobicResults may be compromised due to HIGH VOLUME of the BACT\ALERT bottle EXCEEDING 10mLs, which can be associated with increased contamination. The optimal blood volume is 8-10mLs per aerobic/anaerobic blood culture bottle.This test was performed using a multiplex nucleic acid test that detects and identifies multiple bacterial and yeast nucleic acids and select genetic determinants associated with antimicrobial resistance. Culture is necessary to confirm susceptibilities and identify organisms not detected by this test. A Not Detected result for a genetic marker of antimicrobial resistance does not indicate susceptibility to associated antimicrobial drugs or drug classes. Results should be used in conjunction with other clinical and laboratory findings. Performed By: #### X M #### [facility] (DEFAULT) [address] [place] [id number] Klebsiella pneumoniae group DNA Not detected Normal Not Detected [facility] Comment on above: Order Comment: 2 Bot tles (1 Set - consists of 1 Aerobic bottle and 1 Anaerobic bottle) -1st Peripheral DrawFor vacutainer method draw: Fill aerobic bottle first, then anaerobicResults may be compromised due to HIGH VOLUME of the BACT\ALERT bottle EXCEEDING 10mLs, which can be associated with increased contamination. The optimal blood volume is 8-10mLs per aerobic/anaerobic blood culture bottle.This test was performed using a multiplex nucleic acid test that detects and identifies multiple bacterial and yeast nucleic acids and select genetic determinants associated with antimicrobial resistance. Culture is necessary to confirm susceptibilities and identify organisms not detected by this test. A Not Detected result for a genetic marker of antimicrobial resistance does not indicate susceptibility to associated antimicrobial drugs or drug classes. Results should be used in conjunction with other clinical and laboratory findings. Performed By: #### X M #### [facility] (DEFAULT) [address] [place] [id number] Listeria monocytogenes DNA Not detected Normal Not Detected [facility] Comment on above: Order Comment: 2 Bot tles (1 Set - consists of 1 Aerobic bottle and 1 Anaerobic bottle) -1st Peripheral DrawFor vacutainer method draw: Fill aerobic bottle first, then anaerobicResults may be compromised due to HIGH VOLUME of the BACT\ALERT bottle EXCEEDING 10mLs, which can be associated with increased contamination. The optimal blood volume is 8-10mLs per aerobic/anaerobic blood culture bottle.This test was performed using a multiplex nucleic acid test that detects and identifies multiple bacterial and yeast nucleic acids and select genetic determinants associated with antimicrobial resistance. Culture is necessary to confirm susceptibilities and identify organisms not detected by this test. A Not Detected result for a genetic marker of antimicrobial resistance does not indicate susceptibility to associated antimicrobial drugs or drug classes. Results should be used in conjunction with other clinical and laboratory findings. Performed By: #### X M #### [facility] (DEFAULT) [address] [place] [id number] mecA/C Detected Abnormal Not Detected [facility] Comment on above: Order Comment: 2 Bot tles (1 Set - consists of 1 Aerobic bottle and 1 Anaerobic bottle) -1st Peripheral DrawFor vacutainer method draw: Fill aerobic bottle first, then anaerobicResults may be compromised due to HIGH VOLUME of the BACT\ALERT bottle EXCEEDING 10mLs, which can be associated with increased contamination. The optimal blood volume is 8-10mLs per aerobic/anaerobic blood culture bottle.This test was performed using a multiplex nucleic acid test that detects and identifies multiple bacterial and yeast nucleic acids and select genetic determinants associated with antimicrobial resistance. Culture is necessary to confirm susceptibilities and identify organisms not detected by this test. A Not Detected result for a genetic marker of antimicrobial resistance does not indicate susceptibility to associated antimicrobial drugs or drug classes. Results should be used in conjunction with other clinical and laboratory findings. Performed By: #### X M #### [facility] (DEFAULT) [address] [place] [id number] Neisseria meningitidis DNA Not detected Normal Not Detected [facility] Comment on above: Order Comment: 2 Bot tles (1 Set - consists of 1 Aerobic bottle and 1 Anaerobic bottle) -1st Peripheral DrawFor vacutainer method draw: Fill aerobic bottle first, then anaerobicResults may be compromised due to HIGH VOLUME of the BACT\ALERT bottle EXCEEDING 10mLs, which can be associated with increased contamination. The optimal blood volume is 8-10mLs per aerobic/anaerobic blood culture bottle.This test was performed using a multiplex nucleic acid test that detects and identifies multiple bacterial and yeast nucleic acids and select genetic determinants associated with antimicrobial resistance. Culture is necessary to confirm susceptibilities and identify organisms not detected by this test. A Not Detected result for a genetic marker of antimicrobial resistance does not indicate susceptibility to associated antimicrobial drugs or drug classes. Results should be used in conjunction with other clinical and laboratory findings. Performed By: #### X M #### [facility] (DEFAULT) [address] [place] [id number] Proteus species DNA Not detected Normal Not Detected [facility] Comment on above: Order Comment: 2 Bot tles (1 Set - consists of 1 Aerobic bottle and 1 Anaerobic bottle) -1st Peripheral DrawFor vacutainer method draw: Fill aerobic bottle first, then anaerobicResults may be compromised due to HIGH VOLUME of the BACT\ALERT bottle EXCEEDING 10mLs, which can be associated with increased contamination. The optimal blood volume is 8-10mLs per aerobic/anaerobic blood culture bottle.This test was performed using a multiplex nucleic acid test that detects and identifies multiple bacterial and yeast nucleic acids and select genetic determinants associated with antimicrobial resistance. Culture is necessary to confirm susceptibilities and identify organisms not detected by this test. A Not Detected result for a genetic marker of antimicrobial resistance does not indicate susceptibility to associated antimicrobial drugs or drug classes. Results should be used in conjunction with other clinical and laboratory findings. Performed By: #### X M #### [facility] (DEFAULT) [address] [place] [id number] Pseudomonas aeruginosa DNA Not detected Normal Not Detected [facility] Comment on above: Order Comment: 2 Bot tles (1 Set - consists of 1 Aerobic bottle and 1 Anaerobic bottle) -1st Peripheral DrawFor vacutainer method draw: Fill aerobic bottle first, then anaerobicResults may be compromised due to HIGH VOLUME of the BACT\ALERT bottle EXCEEDING 10mLs, which can be associated with increased contamination. The optimal blood volume is 8-10mLs per aerobic/anaerobic blood culture bottle.This test was performed using a multiplex nucleic acid test that detects and identifies multiple bacterial and yeast nucleic acids and select genetic determinants associated with antimicrobial resistance. Culture is necessary to confirm susceptibilities and identify organisms not detected by this test. A Not Detected result for a genetic marker of antimicrobial resistance does not indicate susceptibility to associated antimicrobial drugs or drug classes. Results should be used in conjunction with other clinical and laboratory findings. Performed By: #### X M #### [facility] (DEFAULT) [address] [address] Salmonella species DNA Not detected Normal Not Detecte d [facility] Comment on above: Order Comment: 2 Bot tles (1 Set - consists of 1 Aerobic bottle and 1 Anaerobic bottle) -1st Peripheral DrawFor vacutainer method draw: Fill aerobic bottle first, then anaerobicResults may be compromised due to HIGH VOLUME of the BACT\ALERT bottle EXCEEDING 10mLs, which can be associated with increased contamination. The optimal blood volume is 8-10mLs per aerobic/anaerobic blood culture bottle.This test was performed using a multiplex nucleic acid test that detects and identifies multiple bacterial and yeast nucleic acids and select genetic determinants associated with antimicrobial resistance. Culture is necessary to confirm susceptibilities and identify organisms not detected by this test. A Not Detected result for a genetic marker of antimicrobial resistance does not indicate susceptibility to associated antimicrobial drugs or drug classes. Results should be used in conjunction with other clinical and laboratory findings. Performed By: #### X M #### [facility] (DEFAULT) [address] [address] Serratia marcescens DNA Not detected Normal Not Detect ed [facility] Comment on above: Order Comment: 2 Bot tles (1 Set - consists of 1 Aerobic bottle and 1 Anaerobic bottle) -1st Peripheral DrawFor vacutainer method draw: Fill aerobic bottle first, then anaerobicResults may be compromised due to HIGH VOLUME of the BACT\ALERT bottle EXCEEDING 10mLs, which can be associated with increased contamination. The optimal blood volume is 8-10mLs per aerobic/anaerobic blood culture bottle.This test was performed using a multiplex nucleic acid test that detects and identifies multiple bacterial and yeast nucleic acids and select genetic determinants associated with antimicrobial resistance. Culture is necessary to confirm susceptibilities and identify organisms not detected by this test. A Not Detected result for a genetic marker of antimicrobial resistance does not indicate susceptibility to associated antimicrobial drugs or drug classes. Results should be used in conjunction with other clinical and laboratory findings. Performed By: #### X M #### [facility] (DEFAULT) [address] [address] Staphylococcus aureus DNA Not detected Normal Not Detected [facility] Comment on above: Order Comment: 2 Bot tles (1 Set - consists of 1 Aerobic bottle and 1 Anaerobic bottle) -1st Peripheral DrawFor vacutainer method draw: Fill aerobic bottle first, then anaerobicResults may be compromised due to HIGH VOLUME of the BACT\ALERT bottle EXCEEDING 10mLs, which can be associated with increased contamination. The optimal blood volume is 8-10mLs per aerobic/anaerobic blood culture bottle.This test was performed using a multiplex nucleic acid test that detects and identifies multiple bacterial and yeast nucleic acids and select genetic determinants associated with antimicrobial resistance. Culture is necessary to confirm susceptibilities and identify organisms not detected by this test. A Not Detected result for a genetic marker of antimicrobial resistance does not indicate susceptibility to associated antimicrobial drugs or drug classes. Results should be used in conjunction with other clinical and laboratory findings. Performed By: #### X M #### [facility] (DEFAULT) [address] [place] [phone] Staphylococcus epidermidis DNA Detected Abnormal Not Detected [facility] Comment on above: Order Comment: 2 Bot tles (1 Set - consists of 1 Aerobic bottle and 1 Anaerobic bottle) -1st Peripheral DrawFor vacutainer method draw: Fill aerobic bottle first, then anaerobicResults may be compromised due to HIGH VOLUME of the BACT\ALERT bottle EXCEEDING 10mLs, which can be associated with increased contamination. The optimal blood volume is 8-10mLs per aerobic/anaerobic blood culture bottle.This test was performed using a multiplex nucleic acid test that detects and identifies multiple bacterial and yeast nucleic acids and select genetic determinants associated with antimicrobial resistance. Culture is necessary to confirm susceptibilities and identify organisms not detected by this test. A Not Detected result for a genetic marker of antimicrobial resistance does not indicate susceptibility to associated antimicrobial drugs or drug classes. Results should be used in conjunction with other clinical and laboratory findings. Performed By: #### X M #### [facility] (DEFAULT) [address] [place] [id number] Staphylococcus lugdunensis DNA Not detected Normal Not Detected [facility] Comment on above: Order Comment: 2 Bot tles (1 Set - consists of 1 Aerobic bottle and 1 Anaerobic bottle) -1st Peripheral DrawFor vacutainer method draw: Fill aerobic bottle first, then anaerobicResults may be compromised due to HIGH VOLUME of the BACT\ALERT bottle EXCEEDING 10mLs, which can be associated with increased contamination. The optimal blood volume is 8-10mLs per aerobic/anaerobic blood culture bottle.This test was performed using a multiplex nucleic acid test that detects and identifies multiple bacterial and yeast nucleic acids and select genetic determinants associated with antimicrobial resistance. Culture is necessary to confirm susceptibilities and identify organisms not detected by this test. A Not Detected result for a genetic marker of antimicrobial resistance does not indicate susceptibility to associated antimicrobial drugs or drug classes. Results should be used in conjunction with other clinical and laboratory findings. Performed By: #### X M #### [facility] (DEFAULT) [address] [address] Staphylococcus species DNA Detected Abnormal Not Detected [facility] Comment on above: Order Comment: 2 Bot tles (1 Set - consists of 1 Aerobic bottle and 1 Anaerobic bottle) -1st Peripheral DrawFor vacutainer method draw: Fill aerobic bottle first, then anaerobicResults may be compromised due to HIGH VOLUME of the BACT\ALERT bottle EXCEEDING 10mLs, which can be associated with increased contamination. The optimal blood volume is 8-10mLs per aerobic/anaerobic blood culture bottle.This test was performed using a multiplex nucleic acid test that detects and identifies multiple bacterial and yeast nucleic acids and select genetic determinants associated with antimicrobial resistance. Culture is necessary to confirm susceptibilities and identify organisms not detected by this test. A Not Detected result for a genetic marker of antimicrobial resistance does not indicate susceptibility to associated antimicrobial drugs or drug classes. Results should be used in conjunction with other clinical and laboratory findings. Performed By: #### X M #### [facility] (DEFAULT) [address] [address] Stenotrophomonas maltophilia DNA Not detected Normal Not Detected [facility] Comment on above: Order Comment: 2 Bot tles (1 Set - consists of 1 Aerobic bottle and 1 Anaerobic bottle) -1st Peripheral DrawFor vacutainer method draw: Fill aerobic bottle first, then anaerobicResults may be compromised due to HIGH VOLUME of the BACT\ALERT bottle EXCEEDING 10mLs, which can be associated with increased contamination. The optimal blood volume is 8-10mLs per aerobic/anaerobic blood culture bottle.This test was performed using a multiplex nucleic acid test that detects and identifies multiple bacterial and yeast nucleic acids and select genetic determinants associated with antimicrobial resistance. Culture is necessary to confirm susceptibilities and identify organisms not detected by this test. A Not Detected result for a genetic marker of antimicrobial resistance does not indicate susceptibility to associated antimicrobial drugs or drug classes. Results should be used in conjunction with other clinical and laboratory findings. Performed By: #### X M #### [facility] (DEFAULT) [address] [address] Streptococcus agalactiae (Group B) DNA Not detected Normal Not Detected [facility] Comment on above: Order Comment: 2 Bot tles (1 Set - consists of 1 Aerobic bottle and 1 Anaerobic bottle) -1st Peripheral DrawFor vacutainer method draw: Fill aerobic bottle first, then anaerobicResults may be compromised due to HIGH VOLUME of the BACT\ALERT bottle EXCEEDING 10mLs, which can be associated with increased contamination. The optimal blood volume is 8-10mLs per aerobic/anaerobic blood culture bottle.This test was performed using a multiplex nucleic acid test that detects and identifies multiple bacterial and yeast nucleic acids and select genetic determinants associated with antimicrobial resistance. Culture is necessary to confirm susceptibilities and identify organisms not detected by this test. A Not Detected result for a genetic marker of antimicrobial resistance does not indicate susceptibility to associated antimicrobial drugs or drug classes. Results should be used in conjunction with other clinical and laboratory findings. Performed By: #### X M #### [facility] (DEFAULT) [address] [place] [id number] Streptococcus pneumoniae DNA Not detected Normal Not Detected [facility] Comment on above: Order Comment: 2 Bot tles (1 Set - consists of 1 Aerobic bottle and 1 Anaerobic bottle) -1st Peripheral DrawFor vacutainer method draw: Fill aerobic bottle first, then anaerobicResults may be compromised due to HIGH VOLUME of the BACT\ALERT bottle EXCEEDING 10mLs, which can be associated with increased contamination. The optimal blood volume is 8-10mLs per aerobic/anaerobic blood culture bottle.This test was performed using a multiplex nucleic acid test that detects and identifies multiple bacterial and yeast nucleic acids and select genetic determinants associated with antimicrobial resistance. Culture is necessary to confirm susceptibilities and identify organisms not detected by this test. A Not Detected result for a genetic marker of antimicrobial resistance does not indicate susceptibility to associated antimicrobial drugs or drug classes. Results should be used in conjunction with other clinical and laboratory findings. Performed By: #### X M #### [facility] (DEFAULT) [address] [address] Streptococcus pyogenes (Group A) DNA Not detected Normal Not Detected [facility] Comment on above: Order Comment: 2 Bot tles (1 Set - consists of 1 Aerobic bottle and 1 Anaerobic bottle) -1st Peripheral DrawFor vacutainer method draw: Fill aerobic bottle first, then anaerobicResults may be compromised due to HIGH VOLUME of the BACT\ALERT bottle EXCEEDING 10mLs, which can be associated with increased contamination. The optimal blood volume is 8-10mLs per aerobic/anaerobic blood culture bottle.This test was performed using a multiplex nucleic acid test that detects and identifies multiple bacterial and yeast nucleic acids and select genetic determinants associated with antimicrobial resistance. Culture is necessary to confirm susceptibilities and identify organisms not detected by this test. A Not Detected result for a genetic marker of antimicrobial resistance does not indicate susceptibility to associated antimicrobial drugs or drug classes. Results should be used in conjunction with other clinical and laboratory findings. Performed By: #### X M #### [facility] (DEFAULT) [address] [address] Streptococcus species DNA Not detected Normal Not Detected [facility] Comment on above: Order Comment: 2 Bot tles (1 Set - consists of 1 Aerobic bottle and 1 Anaerobic bottle) -1st Peripheral DrawFor vacutainer method draw: Fill aerobic bottle first, then anaerobicResults may be compromised due to HIGH VOLUME of the BACT\ALERT bottle EXCEEDING 10mLs, which can be associated with increased contamination. The optimal blood volume is 8-10mLs per aerobic/anaerobic blood culture bottle.This test was performed using a multiplex nucleic acid test that detects and identifies multiple bacterial and yeast nucleic acids and select genetic determinants associated with antimicrobial resistance. Culture is necessary to confirm susceptibilities and identify organisms not detected by this test. A Not Detected result for a genetic marker of antimicrobial resistance does not indicate susceptibility to associated antimicrobial drugs or drug classes. Results should be used in conjunction with other clinical and laboratory findings. Performed By: #### X M #### [facility] (DEFAULT) [address] [address] CALCIUMon 02-28-2025 Calcium [Mass/Vol] 8.9 mg/dL Normal 8.6-10.5 [facility] Comment on above: Performed By: #### H EMOGC #### [facility] (DEFAULT) [address] [place] [address] CBC,PLATELETSon 02-28-2025 Hematocrit (Bld) [Volume fraction] 31.0 % Low 39.6-48.8 [facility] Comment on above: Performed By: #### H EMOGC #### [facility] (DEFAULT) [address] [place] [address] Hemoglobin (Bld) [Mass/Vol] 9.4 g/dL Low 13.4-16.8 [facility] Comment on above: Performed By: #### H EMOGC #### [facility] (DEFAULT) [address] [place] [address] MCV (RBC) [Entitic vol] 107.3 fL High 79.0-94.5 [facility] Comment on above: Performed By: #### H EMO #### [facility] (DEFAULT) [address] [place] [address] Mean Cell Hgb 32.5 pg Normal 26.1-33.3 [facility] Comment on above: Performed By: #### H EMOGC #### [facility] (DEFAULT) [address] [place] [address]47 Mean Cell Hgb Conc 30.3 g/dL Low 31.9-36.5 [facility] Comment on above: Performed By: #### H EMOGC #### [facility] (DEFAULT) [address] [place] [address] Platelet mean volume (Bld) [Entitic vol] 9.7 fL Normal 8.7-12.3 [facility] Comment on above: Performed By: #### H EMOGC #### [facility] (DEFAULT) [address] [place] [address] Platelets (Bld) [#/Vol] 220 10*3/uL Normal 146-337 [facility] Comment on above: Performed By: #### H EMOGC #### [facility] (DEFAULT) [address] [place] [address] RBC (Bld) [#/Vol] 2.89 10*6/uL Low 4.38-5.83 [facility] Comment on above: Performed By: #### H EMOGC #### [facility] (DEFAULT) [address] [place] [address] RBC Distribution 17.6 % High 10.9-14.3 [facility] Comment on above: Performed By: #### H EMOGC #### [facility] (DEFAULT) [address] [address] WBC (Bld) [#/Vol] 6.86 10*3/uL Normal 3.73-10.10 [facility] Comment on above: Performed By: #### H EMOGC #### [facility] (DEFAULT) [address] [place] [address] CHEM 7 (LYTES,BUN,CREA,GLUC) on 02-28-2025 Anion gap [Moles/Vol] 19 mmol/L High 7-17 [facility] Comment on above: Performed By: #### H EMOGC #### [facility] (DEFAULT) [address] [place] [address] Chloride [Moles/Vol] 101 mmol/L Normal 98-108 [facility] Comment on above: Performed By: #### H EMOGC #### [facility] (DEFAULT) [address] [place] [address] CO2 [Moles/Vol] 25 mmol/L Normal 21-31 [facility] Comment on above: Performed By: #### H EMOGC #### [facility] (DEFAULT) [address] [place] [address] Creatinine [Mass/Vol] 6.59 mg/dL High 0.70-1.30 [facility] Comment on above: Performed By: #### H EMOGC #### [facility] (DEFAULT) [address] [place] [address] GFR/1.73 sq M.predicted among non-blacks MDRD (S/P/Bld) [Vol rate/Area] 8 mL/min/{1.73_m2} Low >=60 [facility] Comment on above: Result Comment: Repo rted eGFR is based on the CKD-EPI 2020 equation using creatinine, age, and sex. Performed By: #### H EMOGC #### [facility] (DEFAULT) [address] [place] [address] Glucose [Mass/Vol] 114 mg/dL Normal Nonfastin -179 mg/dL; Fastin-99 [facility] Comment on above: Performed By: #### H EMOGC #### [facility] (DEFAULT) [address] [place] [address] Osmolality [Osmolality] 303 mosm/kg Normal 278-305 [facility] Comment on above: Performed By: #### H EMOGC #### [facility] (DEFAULT) [address] [place] [address] Potassium [Moles/Vol] 4.5 mmol/L Normal 3.5-5.0 [facility] Comment on above: Performed By: #### H EMOGC #### [facility] (DEFAULT) [address] [place] [address] Sodium [Moles/Vol] 140 mmol/L Normal 135-145 [facility] Comment on above: Performed By: #### H EMOGC #### [facility] (DEFAULT) [address] [place] [address] Urea nitrogen [Mass/Vol] 36 mg/dL High 7-25 [facility] Comment on above: Performed By: #### H EMOGC #### [facility] (DEFAULT) [address] [place] [address] Urea nitrogen/Creatinine [Mass ratio] 5 mg/mg Normal [facility] Comment on above: Performed By: #### [facility] #### [facility] (DEFAULT) [address] [place] [address] Laboratory - Chemistry and C hemistry - challengeon 02-28-2025 Anion gap [Moles/Vol] 19 mmol/L High 7 - 17 mmol/L [facility] Chloride [Moles/Vol] 101 mmol/L 98 - 10 8 mmol/L [facility] CO2 [Moles/Vol] 25 mmol/L 21 - 31 mmol/L [facility] Creatinine [Mass/Vol] 6.59 mg/dL High 0.70 - 1.30 mg/dL [facility] Glucose [Mass/Vol] 114 mg/dL 70 - 179 mg/dL [facility] Magnesium [Mass/Vol] 1.9 mg/dL 1.6 - 2 .6 mg/dL [facility] Osmolality Calc [[facility]olality] [facility] Phosphate [Mass/Vol] 4.7 mg/dL High 2.2 - 4 .6 mg/dL [facility] Potassium [Moles/Vol] 4.5 mmol/L 3.5 - 5.0 mmol/L [facility] Sodium [Moles/Vol] 140 mmol/L 135 - 145 mmol/L [facility] Urea nitrogen [Mass/Vol] 36 mg/dL High 7 - 25 mg/dL [facility] Urea nitrogen/Creatinine [Mass ratio] 5 mg/mg [facility] Calcium [Mass/Vol] 8.9 mg/dL 8.6 - 10. 5 mg/dL [facility] Laboratory - Coagulationon 0 02-28-2025 aPTT Coag (PPP) [Time] 73.8 s High OS [facility] INR Coag (Bld) [Relative time] 1.5 {INR} High 0.9 - 1.1 [facility] PT Coag (PPP) [Time] 17.9 s [facility] aP[facility] Coag (PPP) [Time] 82.1 s High OS [facility] aPTT Coag (PPP) [Time] 101.1 s High OS [facility] INR Coag (Bld) [Relative time] 1.5 {INR} High 0.9 - 1.1 [facility] PT Coag (PPP) [Time] 17.8 s High [facility] Laboratory - CoagulationOrde red By: Mindi Abbott on 02-28-2025 aPTT Coag (PPP) [Time] 87.5 s High OS [facility] Laboratory - Hematology and Cell countson 02-28-2025 Erythrocyte distribution width (RBC) [Ratio] 17.6 % High 10.9 - 14.3 % [facility] Hematocrit (Bld) [Volume fraction] 31 % Low 39.6 - 48.8 % [facility] Hemoglobin (Bld) [Mass/Vol] 9.4 g/dL Low 13.4 - 16.8 g/dL [facility] MCH (RBC) [Entitic mass] 32.5 pg 26.1 - 33.3 pg [facility] MCHC (RBC) [Mass/Vol] 30.3 g/dL Low 31.9 - 36.5 g/dL [facility] MCV (RBC) [Entitic vol] 107.3 fL High 79.0 - 94.5 fL [facility] Platelet mean volume (Bld) [Entitic vol] 9.7 fL 8.7 - 12.3 fL [facility] Platelets (Bld) [#/Vol] 220 10*3/uL 146 - 337 K/uL [facility] RBC (Bld) [#/Vol] 2.89 10*6/uL Low [facility] WBC (Bld) [#/Vol] 6.86 10*3/uL 3.73 - 10. 10 K/uL [facility] MAGNESIUMon 02-28-2025 Magnesium [Mass/Vol] 1.9 mg/dL Normal 1.6-2.6 [facility] Comment on above: Performed By: #### [facility] #### [facility] (DEFAULT) [address] [place] [address] No Panel Informationon 02-28 Interpretation and review of laboratory results Abnormal [facility] Interpretation and review of laboratory results Abnormal [facility] Interpretation and review of laboratory results Abnormal [facility] Interpretation and review of laboratory results Abnormal [facility] Interpretation and review of laboratory results Abnormal [facility] eGFR, CKD-EPI, Male 8 Low - PINF [facility] Interpretation and review of laboratory results Abnormal [facility] Interpretation and review of laboratory results Normal [facility] Interpretation and review of laboratory results Abnormal [facility] Radiology Study observation (narrative) [facility] No Panel InformationOrdered By: Mindi Abbott on 02-28-2025 Interpretation and review of laboratory results Abnormal [facility] PHOSPHATE, INORGANICon 02-28 Phosphorous 4.7 mg/dL High 2.2-4.6 [facility] Comment on above: Performed By: #### H EMOGC #### [facility] (DEFAULT) [address] [place] [address] PROTIME-INRon 02-28-2025 INR Coag (PPP) [Relative time] 1.5 {INR} High 0.9-1.1 [facility] Comment on above: Performed By: #### P TI, PTT ####[facility] (DEFAULT)[address] [place] [address] PT Coag (PPP) [Time] 17.9 s High 11.9-14.2 [facility] Comment on above: Performed By: #### P TI, PTT ####[facility] (DEFAULT)[address] [place] [address] INR Coag (PPP) [Relative time] 1.5 {INR} High 0.9-1.1 [facility] Comment on above: Performed By: #### X M #### [facility] (DEFAULT) [address] [address] PT Coag (PPP) [Time] 17.8 s High 11.9-14.2 [facility] Comment on above: Performed By: #### X M #### [facility] (DEFAULT) [address] [address] PTTon 02-28-2025 aPTT Coag (Bld) [Time] 73.8 s High 24.0-34.[address] [facility] Comment on above: Order Comment: After initiation a PTT should be checked every 6 hours from time of last dose change or, if dose has not changed, 6 hours after last PTT result posted.? The frequent monitoring should occur until PTT in goal range for two consecutive lab draws without dose changes at which time PTTs may be checked no less frequently than every 12 hours.? If dose requires a change, PTT should be monitored at least every 6 hours until titration is no longer indicated, then as directed above.? If PTT above goal range refer to medication administration instructions. Performed By: #### P TI, PTT ####[facility] (DEFAULT)[address] [place] [address] aPTT Coag (Bld) [Time] 82.1 s High 24.0-34.[address] [facility] Comment on above: Order Comment: After initiation a PTT should be checked every 6 hours from time of last dose change or, if dose has not changed, 6 hours after last PTT result posted.? The frequent monitoring should occur until PTT in goal range for two consecutive lab draws without dose changes at which time PTTs may be checked no less frequently than every 12 hours.? If dose requires a change, PTT should be monitored at least every 6 hours until titration is no longer indicated, then as directed above.? If PTT above goal range refer to medication administration instructions. Performed By: #### G EN #### [facility] (DEFAULT) [address] [address] aPTT Coag (Bld) [Time] 101.1 s High 24.0-34.[address] [facility] Comment on above: Order Comment: After initiation a PTT should be checked every 6 hours from time of last dose change or, if dose has not changed, 6 hours after last PTT result posted.? The frequent monitoring should occur until PTT in goal range for two consecutive lab draws without dose changes at which time PTTs may be checked no less frequently than every 12 hours.? If dose requires a change, PTT should be monitored at least every 6 hours until titration is no longer indicated, then as directed above.? If PTT above goal range refer to medication administration instructions. Performed By: #### X M #### [facility] (DEFAULT) [address] [address] aPTT Coag (Bld) [Time] 87.5 s High 24.0-34.[address] [facility] Comment on above: Order Comment: After initiation a PTT should be checked every 6 hours from time of last dose change or, if dose has not changed, 6 hours after last PTT result posted.? The frequent monitoring should occur until PTT in goal range for two consecutive lab draws without dose changes at which time PTTs may be checked no less frequently than every 12 hours.? If dose requires a change, PTT should be monitored at least every 6 hours until titration is no longer indicated, then as directed above.? If PTT above goal range refer to medication administration instructions. Performed By: #### X M #### [facility] (DEFAULT) [address] [address] Laboratory - CoagulationOrde red By: Sagrario Schulte on 2025 aPTT Coag (PPP) [Time] 66.9 s High OS [facility] Laboratory - CoagulationOrde red By: Kaylin Arthur on 2025 aPTT Coag (PPP) [Time] 97.6 s High OS [facility] Laboratory - Coagulationon 0 2025 aPTT Coag (PPP) [Time] 64.8 s High OS [facility] INR Coag (Bld) [Relative time] 1.5 {INR} High 0.9 - 1.1 [facility] PT Coag (PPP) [Time] 17.6 s High [facility] No Panel InformationOrdered By: Sagrario Schulte on 2025 Interpretation and review of laboratory results Abnormal [facility] No Panel InformationOrdered By: Kaylin Arthur on 2025 Interpretation and review of laboratory results Abnormal [facility] No Panel Informationon 02-27 ABO/RH(D) TYPE Positive [facility] Specimen Expiration 03/02/2025 04:16 [facility] Interpretation and review of laboratory results Abnormal [facility] Interpretation and review of laboratory results Abnormal [facility] PROTIME-INRon 2025 INR Coag (PPP) [Relative time] 1.5 {INR} High 0.9-1.1 [facility] Comment on above: Performed By: #### X M #### [facility] (DEFAULT) [address] [place] [address] PT Coag (PPP) [Time] 17.6 s High 11.9-14.2 [facility] Comment on above: Performed By: #### X M #### [facility] (DEFAULT) [address] [place] [address] PTTon 2025 aPTT Coag (Bld) [Time] 66.9 s High 24.0-34.[address] [facility] Comment on above: Order Comment: After initiation a PTT should be checked every 6 hours from time of last dose change or, if dose has not changed, 6 hours after last PTT result posted.? The frequent monitoring should occur until PTT in goal range for two consecutive lab draws without dose changes at which time PTTs may be checked no less frequently than every 12 hours.? If dose requires a change, PTT should be monitored at least every 6 hours until titration is no longer indicated, then as directed above.? If PTT above goal range refer to medication administration instructions. Performed By: #### X M #### [facility] (DEFAULT) [address] [address] aPTT Coag (Bld) [Time] 97.6 s High 24.0-34.[address] [facility] Comment on above: Order Comment: After initiation a PTT should be checked every 6 hours from time of last dose change or, if dose has not changed, 6 hours after last PTT result posted.? The frequent monitoring should occur until PTT in goal range for two consecutive lab draws without dose changes at which time PTTs may be checked no less frequently than every 12 hours.? If dose requires a change, PTT should be monitored at least every 6 hours until titration is no longer indicated, then as directed above.? If PTT above goal range refer to medication administration instructions. Performed By: #### P TT ####[facility] (DEFAULT)[address] [place] [address] aPTT Coag (Bld) [Time] 64.8 s High 24.0-34.[address] [facility] Comment on above: Order Comment: After initiation a PTT should be checked every 6 hours from time of last dose change or, if dose has not changed, 6 hours after last PTT result posted.? The frequent monitoring should occur until PTT in goal range for two consecutive lab draws without dose changes at which time PTTs may be checked no less frequently than every 12 hours.? If dose requires a change, PTT should be monitored at least every 6 hours until titration is no longer indicated, then as directed above.? If PTT above goal range refer to medication administration instructions. Performed By: #### X M #### [facility] (DEFAULT) [address] [address] TYPE AND SCREENon 2025 ABO/RH(D) TYPE Positive [facility] Comment on above: Performed By: #### X M #### [facility] (DEFAULT) [address] [address] Specimen Expiration 03/02/2025 04:16 [facility] Comment on above: Performed By: #### X M #### [facility] (DEFAULT) [address] [place] [address] Laboratory - Chemistry and C hemistry - challengeon 02-26-2025 Anion gap [Moles/Vol] 17 mmol/L 7 - 17 mmol/L [facility] Calcium [Mass/Vol] 8.7 mg/dL 8.6 - 10. 5 mg/dL [facility] Chloride [Moles/Vol] 98 mmol/L 98 - 10 8 mmol/L [facility] CO2 [Moles/Vol] 26 mmol/L 21 - 31 mmol/L [facility] Creatinine [Mass/Vol] 4.82 mg/dL High 0.70 - 1.30 mg/dL [facility] Glucose [Mass/Vol] 91 mg/dL 70 - 179 mg/dL [facility] Magnesium [Mass/Vol] 1.8 mg/dL 1.6 - 2 .6 mg/dL [facility] Osmolality Calc [Osmolality] [facility] Phosphate [Mass/Vol] 4.3 mg/dL 2.2 - 4 .6 mg/dL [facility] Potassium [Moles/Vol] 4.4 mmol/L 3.5 - 5.0 mmol/L [facility] Sodium [Moles/Vol] 137 mmol/L 135 - 145 mmol/L [facility] Urea nitrogen [Mass/Vol] 22 mg/dL 7 - 25 mg/dL [facility] Urea nitrogen/Creatinine [Mass ratio] 5 mg/mg [facility] Laboratory - Coagulationon 0 02-26-2025 aPTT Coag (PPP) [Time] 95 s High OS [facility] aPTT Coag (PPP) [Time] 93.8 s High OS [facility] INR Coag (Bld) [Relative time] 1.4 {INR} High 0.9 - 1.1 [facility] PT Coag (PPP) [Time] 16.9 s High [facility] Laboratory - Hematology and Cell countson 02-26-2025 Erythrocyte distribution width (RBC) [Ratio] 18.1 % High 10.9 - 14.3 % [facility] Hematocrit (Bld) [Volume fraction] 28 % Low 39.6 - 48.8 % [facility] Hemoglobin (Bld) [Mass/Vol] 8.5 g/dL Low 13.4 - 16.8 g/dL [facility] MCH (RBC) [Entitic mass] 33.1 pg 26.1 - 33.3 pg [facility] MCHC (RBC) [Mass/Vol] 30.4 g/dL Low 31.9 - 36.5 g/dL [facility] MCV (RBC) [Entitic vol] 108.9 fL High 79.0 - 94.5 fL [facility] Platelet mean volume (Bld) [Entitic vol] 10.1 fL 8.7 - 12.3 fL [facility] Platelets (Bld) [#/Vol] 175 10*3/uL 146 - 337 K/uL [facility] RBC (Bld) [#/Vol] 2.57 10*6/uL Low [facility] WBC (Bld) [#/Vol] 5.9 10*3/uL 3.73 - 10. 10 K/uL [facility] No Panel Informationon 02-26 Interpretation and review of laboratory results Abnormal [facility] Interpretation and review of laboratory results Abnormal [facility] Interpretation and review of laboratory results Abnormal [facility] eGFR, CKD-EPI, Male 12 Low - PINF [facility] Interpretation and review of laboratory results Abnormal [facility] Interpretation and review of laboratory results Normal [facility] Interpretation and review of laboratory results Abnormal [facility] PTTon 02-26-2025 aPTT Coag (Bld) [Time] 95.0 s High 24.0-34.3 [facility] Comment on above: Order Comment: After initiation a PTT should be checked every 6 hours from time of last dose change or, if dose has not changed, 6 hours after last PTT result posted.? The frequent monitoring should occur until PTT in goal range for two consecutive lab draws without dose changes at which time PTTs may be checked no less frequently than every 12 hours.? If dose requires a change, PTT should be monitored at least every 6 hours until titration is no longer indicated, then as directed above.? If PTT above goal range refer to medication administration instructions. Performed By: #### S URGP #### [facility] (DEFAULT) [address] [address] CALCIUMon 02-25-2025 Calcium [Mass/Vol] 8.7 mg/dL Normal 8.6-10.5 [facility] Comment on above: Performed By: #### X M #### [facility] (DEFAULT) [address] [address] CBC,PLATELETSon 02-25-2025 Hematocrit (Bld) [Volume fraction] 28.0 % Low 39.6-48.8 [facility] Comment on above: Performed By: #### X M #### [facility] (DEFAULT) [address] [address] Hemoglobin (Bld) [Mass/Vol] 8.5 g/dL Low 13.4-16.8 [facility] Comment on above: Performed By: #### X M #### [facility] (DEFAULT) [address] [address] MCV (RBC) [Entitic vol] 108.9 fL High 79.0-94.5 O [facility] Comment on above: Performed By: #### X M #### [facility] (DEFAULT) [address] [address] Mean Cell Hgb 33.1 pg Normal 26.1-33.3 [facility] Comment on above: Performed By: #### X M #### [facility] (DEFAULT) [address] [address] Mean Cell Hgb Conc 30.4 g/dL Low 31.9-36.5 [facility] Comment on above: Performed By: #### X M #### [facility] (DEFAULT) [address] [address] Platelet mean volume (Bld) [Entitic vol] 10.1 fL Normal 8.7-12.3 [facility] Comment on above: Performed By: #### X M #### [facility] (DEFAULT) [address] [address] Platelets (Bld) [#/Vol] 175 10*3/uL Normal 146-337 [facility] Comment on above: Performed By: #### X M #### [facility] (DEFAULT) [address] [address] RBC (Bld) [#/Vol] 2.57 10*6/uL Low 4.38-5.83 [facility] Comment on above: Performed By: #### X M #### [facility] (DEFAULT) [address] [address] RBC Distribution 18.1 % High 10.9-14.3 [facility] Comment on above: Performed By: #### X M #### [facility] (DEFAULT) [address] [address] WBC (Bld) [#/Vol] 5.90 10*3/uL Normal 3.73-10.10 [facility] Comment on above: Performed By: #### X M #### [facility] (DEFAULT) [address] [address] CHEM 7 (LYTES,BUN,CREA,GLUC) on 02-25-2025 Anion gap [Moles/Vol] 17 mmol/L Normal 7-17 [facility] Comment on above: Performed By: #### X M #### [facility] (DEFAULT) [address] [address] Chloride [Moles/Vol] 98 mmol/L Normal 98-108 [facility] Comment on above: Performed By: #### X M #### [facility] (DEFAULT) [address] [place] [address] CO2 [Moles/Vol] 26 mmol/L Normal 21-31 [facility] Comment on above: Performed By: #### X M #### [facility] (DEFAULT) [address] [place] [address] Creatinine [Mass/Vol] 4.82 mg/dL High 0.70-1.30 [facility] Comment on above: Performed By: #### X M #### [facility] (DEFAULT) [address] [place] [address] GFR/1.73 sq M.predicted among non-blacks MDRD (S/P/Bld) [Vol rate/Area] 12 mL/min/{1.73_m2} Low >=60 [facility] Comment on above: Result Comment: Repo rted eGFR is based on the CKD-EPI 2020 equation using creatinine, age, and sex. Performed By: #### X M #### [facility] (DEFAULT) [address] [place] [address] Glucose [Mass/Vol] 91 mg/dL Normal Nonfastin -179 mg/dL; Fastin-99 [facility] Comment on above: Performed By: #### X M #### [facility] (DEFAULT) [address] [place] [address] Osmolality [Osmolality] 291 mosm/kg Normal 278-305 [facility] Comment on above: Performed By: #### X M #### [facility] (DEFAULT) [address] [place] [address] Potassium [Moles/Vol] 4.4 mmol/L Normal 3.5-5.0 [facility] Comment on above: Performed By: #### X M #### [facility] (DEFAULT) [address] [place] [address] Sodium [Moles/Vol] 137 mmol/L Normal 135-145 [facility] Comment on above: Performed By: #### X M #### [facility] (DEFAULT) [address] [place] [address] Urea nitrogen [Mass/Vol] 22 mg/dL Normal 7-25 [facility] Comment on above: Performed By: #### X M #### [facility] (DEFAULT) [address] [place] [address] Urea nitrogen/Creatinine [Mass ratio] 5 mg/mg Normal [facility] Comment on above: Performed By: #### X M #### [facility] (DEFAULT) [address] [place] [address] Laboratory - Coagulationon 0 02-25-2025 aPTT Coag (PPP) [Time] 79.7 s High [facility] MAGNESIUMon 02-25-2025 Magnesium [Mass/Vol] 1.8 mg/dL Normal 1.6-2.6 [facility] Comment on above: Performed By: #### X M #### [facility] (DEFAULT) [address] [place] [address] No Panel Informationon 02-25 Interpretation and review of laboratory results Abnormal [facility] PHOSPHATE, INORGANICon 02-25 Phosphorous 4.3 mg/dL Normal 2.2-4.6 [facility] Comment on above: Performed By: #### X M #### [facility] (DEFAULT) [address] [place] [address] PROTIME-INRon 02-25-2025 INR Coag (PPP) [Relative time] 1.4 {INR} High 0.9-1.1 [facility] Comment on above: Performed By: #### P TI, PTT ####[facility] (DEFAULT)[address] [place], [place] [address] [address] PT Coag (PPP) [Time] 16.9 s High 11.9-14.2 [facility] Comment on above: Performed By: #### P TI, PTT ####[facility] (DEFAULT)[address] [place] [address] PTTon 02-25-2025 aPTT Coag (Bld) [Time] 93.8 s High 24.0-34.[address] [facility] Comment on above: Order Comment: After initiation a PTT should be checked every 6 hours from time of last dose change or, if dose has not changed, 6 hours after last PTT result posted.? The frequent monitoring should occur until PTT in goal range for two consecutive lab draws without dose changes at which time PTTs may be checked no less frequently than every 12 hours.? If dose requires a change, PTT should be monitored at least every 6 hours until titration is no longer indicated, then as directed above.? If PTT above goal range refer to medication administration instructions. Performed By: #### P TI, PTT ####[facility] (DEFAULT)[address] [place] [address] aPTT Coag (Bld) [Time] 79.7 s High 24.0-34.[address] [facility] Comment on above: Order Comment: After initiation a PTT should be checked every 6 hours from time of last dose change or, if dose has not changed, 6 hours after last PTT result posted.? The frequent monitoring should occur until PTT in goal range for two consecutive lab draws without dose changes at which time PTTs may be checked no less frequently than every 12 hours.? If dose requires a change, PTT should be monitored at least every 6 hours until titration is no longer indicated, then as directed above.? If PTT above goal range refer to medication administration instructions. Performed By: #### X M #### [facility] (DEFAULT) [address] [place] [address] CALCIUMon 02-24-2025 Calcium [Mass/Vol] 8.6 mg/dL Normal 8.6-10.5 [facility] Comment on above: Performed By: #### X M #### [facility] (DEFAULT) [address] [place] [address] CBC,PLATELETSon 02-24-2025 Hematocrit (Bld) [Volume fraction] 28.9 % Low 39.6-48.8 [facility] Comment on above: Performed By: #### X M #### [facility] (DEFAULT) [address] [address] Hemoglobin (Bld) [Mass/Vol] 8.8 g/dL Low 13.4-16.8 [facility] Comment on above: Performed By: #### X M #### [facility] (DEFAULT) [address] [address] MCV (RBC) [Entitic vol] 108.6 fL High 79.0-94.5 [facility] Comment on above: Performed By: #### X M #### [facility] (DEFAULT) [address] [address] Mean Cell Hgb 33.1 pg Normal 26.1-33.3 [facility] Comment on above: Performed By: #### X M #### [facility] (DEFAULT) [address] [address] Mean Cell Hgb Conc 30.4 g/dL Low 31.9-36.5 [facility] Comment on above: Performed By: #### X M #### [facility] (DEFAULT) [address] [address] Platelet mean volume (Bld) [Entitic vol] 10.4 fL Normal 8.7-12.3 [facility] Comment on above: Performed By: #### X M #### [facility] (DEFAULT) [address] [address] Platelets (Bld) [#/Vol] 159 10*3/uL Normal 146-337 [facility] Comment on above: Performed By: #### X M #### [facility] (DEFAULT) [address] [address] RBC (Bld) [#/Vol] 2.66 10*6/uL Low 4.38-5.83 [facility] Comment on above: Performed By: #### X M #### [facility] (DEFAULT) [address] [place] [address] RBC Distribution 18.4 % High 10.9-14.3 [facility] Comment on above: Performed By: #### X M #### [facility] (DEFAULT) [address] [place] [address] WBC (Bld) [#/Vol] 6.26 10*3/uL Normal 3.73-10.10 [facility] Comment on above: Performed By: #### X M #### [facility] (DEFAULT) [address] [place] [address] CHEM 7 (LYTES,BUN,CREA,GLUC) on 02-24-2025 Anion gap [Moles/Vol] 17 mmol/L Normal 7-17 [facility] Comment on above: Performed By: #### X M #### [facility] (DEFAULT) [address] [place] [address] Chloride [Moles/Vol] 99 mmol/L Normal 98-108 [facility] Comment on above: Performed By: #### X M #### [facility] (DEFAULT) [address] [place] [address] CO2 [Moles/Vol] 27 mmol/L Normal 21-31 [facility] Comment on above: Performed By: #### X M #### [facility] (DEFAULT) [address] [place] [address] Creatinine [Mass/Vol] 3.74 mg/dL High 0.70-1.30 [facility] Comment on above: Performed By: #### X M #### [facility] (DEFAULT) [address] [place] [address] GFR/1.73 sq M.predicted among non-blacks MDRD (S/P/Bld) [Vol rate/Area] 16 mL/min/{1.73_m2} Low >=60 [facility] Comment on above: Result Comment: Repo rted eGFR is based on the CKD-EPI 2020 equation using creatinine, age, and sex. Performed By: #### X M #### [facility] (DEFAULT) [address] [place] [address] Glucose [Mass/Vol] 81 mg/dL Normal Nonfastin -179 mg/dL; Fastin-99 [facility] Comment on above: Performed By: #### X M #### [facility] (DEFAULT) [address] [place] [address] Osmolality [Osmolality] 291 mosm/kg Normal 278-305 [facility] Comment on above: Performed By: #### X M #### [facility] (DEFAULT) [address] [place] [address] Potassium [Moles/Vol] 4.0 mmol/L Normal 3.5-5.0 [facility] Comment on above: Performed By: #### X M #### [facility] (DEFAULT) [address] [place] [address] Sodium [Moles/Vol] 139 mmol/L Normal 135-145 [facility] Comment on above: Performed By: #### X M #### [facility] (DEFAULT) [address] [place] [address] Urea nitrogen [Mass/Vol] 17 mg/dL Normal 7-25 [facility] Comment on above: Performed By: #### X M #### [facility] (DEFAULT) [address] [place] [address] Urea nitrogen/Creatinine [Mass ratio] 5 mg/mg Normal [facility] Comment on above: Performed By: #### X M #### [facility] (DEFAULT) [address] [place] [address] Laboratory - Chemistry and C hemistry - challengeon 02-24-2025 Anion gap [Moles/Vol] 17 mmol/L 7 - 17 mmol/L [facility] Chloride [Moles/Vol] 99 mmol/L 98 - 10 8 mmol/L [facility] CO2 [Moles/Vol] 27 mmol/L 21 - 31 mmol/L [facility] Creatinine [Mass/Vol] 3.74 mg/dL High 0.70 - 1.30 mg/dL [facility] Glucose [Mass/Vol] 81 mg/dL 70 - 179 mg/dL [facility] Osmolality Calc [Osmolality] 291 [facility] Potassium [Moles/Vol] 4 mmol/L 3.5 - 5.0 mmol/L [facility] Sodium [Moles/Vol] 139 mmol/L 135 - 145 mmol/L [facility] Urea nitrogen [Mass/Vol] 17 mg/dL 7 - 25 mg/dL [facility] Urea nitrogen/Creatinine [Mass ratio] 5 mg/mg [facility] Calcium [Mass/Vol] 8.6 mg/dL 8.6 - 10. 5 mg/dL [facility] Magnesium [Mass/Vol] 1.8 mg/dL 1.6 - 2 .6 mg/dL [facility] Phosphate [Mass/Vol] 2.8 mg/dL 2.2 - 4 .6 mg/dL [facility] Laboratory - Coagulationon 0 02-24-2025 aPTT Coag (PPP) [Time] 94.4 s High [facility] INR Coag (Bld) [Relative time] 1.3 {INR} High 0.9 - 1.1 [facility] PT Coag (PPP) [Time] 15.8 s High [facility] aPTT Coag (PPP) [Time] 75.1 s High [facility] aPTT Coag (PPP) [Time] 81.3 s High [facility] INR Coag (Bld) [Relative time] 1.2 {INR} High 0.9 - 1.1 [facility] PT Coag (PPP) [Time] 15.5 s High [facility] aPTT Coag (PPP) [Time] 76.4 s High [facility] Laboratory - Hematology and Cell countson 04-08-2025 Erythrocyte distribution width (RBC) [Ratio] 18.4 % High 10.9 - 14.3 % [facility] Hematocrit (Bld) [Volume fraction] 28.9 % Low 39.6 - 48.8 % [facility] Hemoglobin (Bld) [Mass/Vol] 8.8 g/dL Low 13.4 - 16.8 g/dL [facility] MCH (RBC) [Entitic mass] 33.1 pg 26.1 - 33.3 pg [facility] MCHC (RBC) [Mass/Vol] 30.4 g/dL Low 31.9 - 36.5 g/dL [facility] MCV (RBC) [Entitic vol] 108.6 fL High 79.0 - 94.5 fL [facility] Platelet mean volume (Bld) [Entitic vol] 10.4 fL 8.7 - 12.3 fL [facility] Platelets (Bld) [#/Vol] 159 10*3/uL 146 - 337 K/uL [facility] RBC (Bld) [#/Vol] 2.66 10*6/uL Low [facility] WBC (Bld) [#/Vol] 6.26 10*3/uL 3.73 - 10. 10 K/uL [facility] MAGNESIUMon 02-24-2025 Magnesium [Mass/Vol] 1.8 mg/dL Normal 1.6-2.6 [facility] Comment on above: Performed By: #### X M #### [facility] (DEFAULT) [address] [place] [address] No Panel Informationon 02-24 Interpretation and review of laboratory results Abnormal [facility] Interpretation and review of laboratory results Abnormal [facility] Interpretation and review of laboratory results Abnormal [facility] Interpretation and review of laboratory results Abnormal [facility] Interpretation and review of laboratory results Abnormal [facility] ABO/RH(D) TYPE Positive [facility] Specimen Expiration 2025 07:14 [facility] eGFR, CKD-EPI, Male 16 Low - PINF [facility] Interpretation and review of laboratory results Abnormal [facility] Interpretation and review of laboratory results Normal [facility] Interpretation and review of laboratory results Abnormal [facility] Interpretation and review of laboratory results Abnormal [facility] PHOSPHATE, INORGANICon 02-24 Phosphorous 2.8 mg/dL Normal 2.2-4.6 [facility] Comment on above: Performed By: #### X M #### [facility] (DEFAULT) [address] [place] [address] PROTIME-INRon 02-24-2025 INR Coag (PPP) [Relative time] 1.3 {INR} High 0.9-1.1 [facility] Comment on above: Performed By: #### X M #### [facility] (DEFAULT) [address] [place] [address] PT Coag (PPP) [Time] 15.8 s High 11.9-14.2 [facility] Comment on above: Performed By: #### X M #### [facility] (DEFAULT) [address] [place] [address] INR Coag (PPP) [Relative time] 1.2 {INR} High 0.9-1.1 [facility] Comment on above: Performed By: #### X M #### [facility] (DEFAULT) [address] [place] [address] PT Coag (PPP) [Time] 15.5 s High 11.9-14.2 [facility] Comment on above: Performed By: #### X M #### [facility] (DEFAULT) [address] [place] [address] PTTon 02-24-2025 aPTT Coag (Bld) [Time] 94.4 s High 24.0-34.[address] [facility] Comment on above: Order Comment: After initiation a PTT should be checked every 6 hours from time of last dose change or, if dose has not changed, 6 hours after last PTT result posted.? The frequent monitoring should occur until PTT in goal range for two consecutive lab draws without dose changes at which time PTTs may be checked no less frequently than every 12 hours.? If dose requires a change, PTT should be monitored at least every 6 hours until titration is no longer indicated, then as directed above.? If PTT above goal range refer to medication administration instructions. Performed By: #### X M #### [facility] (DEFAULT) [address] [address] aPTT Coag (Bld) [Time] 75.1 s High 24.0-34.[address] [facility] Comment on above: Order Comment: After initiation a PTT should be checked every 6 hours from time of last dose change or, if dose has not changed, 6 hours after last PTT result posted.? The frequent monitoring should occur until PTT in goal range for two consecutive lab draws without dose changes at which time PTTs may be checked no less frequently than every 12 hours.? If dose requires a change, PTT should be monitored at least every 6 hours until titration is no longer indicated, then as directed above.? If PTT above goal range refer to medication administration instructions. Performed By: #### X M #### [facility] (DEFAULT) [address] [address] aPTT Coag (Bld) [Time] 81.3 s High 24.0-34.[address] [facility] Comment on above: Order Comment: After initiation a PTT should be checked every 6 hours from time of last dose change or, if dose has not changed, 6 hours after last PTT result posted.? The frequent monitoring should occur until PTT in goal range for two consecutive lab draws without dose changes at which time PTTs may be checked no less frequently than every 12 hours.? If dose requires a change, PTT should be monitored at least every 6 hours until titration is no longer indicated, then as directed above.? If PTT above goal range refer to medication administration instructions. Performed By: #### X M #### [facility] (DEFAULT) [address] [place] [address] TYPE AND SCREENon 02-24-2025 ABO/RH(D) TYPE Positive Normal [facility] Comment on above: Performed By: #### X M #### [facility] (DEFAULT) [address] [place] [address] Specimen Expiration 2025 07:14 Normal [facility] Comment on above: Performed By: #### X M #### [facility] (DEFAULT) [address] [place] [address] Laboratory - CoagulationOrde red By: Yocasta Day on 02-23-2025 aPTT Coag (PPP) [Time] 140 s High [facility] Laboratory - CoagulationOrde red By: Lexis Chase on 02-23-2025 aPTT Coag (PPP) [Time] 97.4 s High [facility] Laboratory - Coagulationon 0 02-23-2025 aPTT Coag (PPP) [Time] 41.8 s High [facility] INR Coag (Bld) [Relative time] 1.1 {INR} 0.9 - 1.1 [facility] PT Coag (PPP) [Time] 14.5 s High [facility] No Panel InformationOrdered By: Yocasta Day on 02-23-2025 Interpretation and review of laboratory results Abnormal [facility] No Panel InformationOrdered By: Lexis Chase on 02-23-2025 Interpretation and review of laboratory results Abnormal [facility] No Panel Informationon 02-23 Interpretation and review of laboratory results Abnormal [facility] Interpretation and review of laboratory results Abnormal [facility] PROTIME-INRon 02-23-2025 INR Coag (PPP) [Relative time] 1.1 {INR} Normal 0.9-1.1 [facility] Comment on above: Performed By: #### X M #### [facility] (DEFAULT) [address] [address] PT Coag (PPP) [Time] 14.5 s High 11.9-14.2 [facility] Comment on above: Performed By: #### X M #### [facility] (DEFAULT) [address] [address] PTTon 02-23-2025 aPTT Coag (Bld) [Time] 76.4 s High 24.0-34.[address] [facility] Comment on above: Order Comment: After initiation a PTT should be checked every 6 hours from time of last dose change or, if dose has not changed, 6 hours after last PTT result posted.? The frequent monitoring should occur until PTT in goal range for two consecutive lab draws without dose changes at which time PTTs may be checked no less frequently than every 12 hours.? If dose requires a change, PTT should be monitored at least every 6 hours until titration is no longer indicated, then as directed above.? If PTT above goal range refer to medication administration instructions. Performed By: #### X M #### [facility] (DEFAULT) [address] [address] aPTT Coag (Bld) [Time] 140.0 s High 24.0-34.[address] [facility] Comment on above: Order Comment: After initiation a PTT should be checked every 6 hours from time of last dose change or, if dose has not changed, 6 hours after last PTT result posted.? The frequent monitoring should occur until PTT in goal range for two consecutive lab draws without dose changes at which time PTTs may be checked no less frequently than every 12 hours.? If dose requires a change, PTT should be monitored at least every 6 hours until titration is no longer indicated, then as directed above.? If PTT above goal range refer to medication administration instructions. Performed By: #### P TT #### [facility] (DEFAULT) [address] [place] [address]797 aPTT Coag (Bld) [Time] 97.4 s High 24.0-34.[address] [facility] Comment on above: Order Comment: After initiation a PTT should be checked every 6 hours from time of last dose change or, if dose has not changed, 6 hours after last PTT result posted.? The frequent monitoring should occur until PTT in goal range for two consecutive lab draws without dose changes at which time PTTs may be checked no less frequently than every 12 hours.? If dose requires a change, PTT should be monitored at least every 6 hours until titration is no longer indicated, then as directed above.? If PTT above goal range refer to medication administration instructions. Performed By: #### X M #### [facility] (DEFAULT) [address] [address] aPTT Coag (Bld) [Time] 41.8 s High 24.0-34.[address] [facility] Comment on above: Order Comment: After initiation a PTT should be checked every 6 hours from time of last dose change or, if dose has not changed, 6 hours after last PTT result posted.? The frequent monitoring should occur until PTT in goal range for two consecutive lab draws without dose changes at which time PTTs may be checked no less frequently than every 12 hours.? If dose requires a change, PTT should be monitored at least every 6 hours until titration is no longer indicated, then as directed above.? If PTT above goal range refer to medication administration instructions. Performed By: #### X M #### [facility] (DEFAULT) [address] [place] [address] Laboratory - Coagulationon 0 02-22-2025 aPTT Coag (PPP) [Time] 93.6 s High OS [facility] aPTT Coag (PPP) [Time] 49.7 s High OS [facility] INR Coag (Bld) [Relative time] 1.1 {INR} 0.9 - 1.1 [facility] PT Coag (PPP) [Time] 14.2 s [facility] Laboratory - CoagulationOrde red By: Isidar Donnelly on 02-22-2025 aPTT Coag (PPP) [Time] 74 s High OS [facility] No Panel Informationon 02-22 Interpretation and review of laboratory results Abnormal [facility] Interpretation and review of laboratory results Abnormal [facility] Interpretation and review of laboratory results Normal [facility] No Panel InformationOrdered By: Isidra Donnelly on 02-22-2025 Interpretation and review of laboratory results Abnormal [facility] PROTIME-INRon 02-22-2025 INR Coag (PPP) [Relative time] 1.1 {INR} Normal 0.9-1.1 [facility] Comment on above: Performed By: #### X M #### [facility] (DEFAULT) [address] [place] [address] PT Coag (PPP) [Time] 14.2 s Normal 11.9-14.2 [facility] Comment on above: Performed By: #### X M #### [facility] (DEFAULT) [address] [place] [address] PTTon 02-22-2025 aPTT Coag (Bld) [Time] 93.6 s High 24.0-34.[address] [facility] Comment on above: Order Comment: After initiation a PTT should be checked every 6 hours from time of last dose change or, if dose has not changed, 6 hours after last PTT result posted.? The frequent monitoring should occur until PTT in goal range for two consecutive lab draws without dose changes at which time PTTs may be checked no less frequently than every 12 hours.? If dose requires a change, PTT should be monitored at least every 6 hours until titration is no longer indicated, then as directed above.? If PTT above goal range refer to medication administration instructions. Performed By: #### P TT #### [facility] (DEFAULT) [address] [place] [address] 58701 aPTT Coag (Bld) [Time] 74.0 s High 24.0-34.[address] [facility] Comment on above: Order Comment: After initiation a PTT should be checked every 6 hours from time of last dose change or, if dose has not changed, 6 hours after last PTT result posted.? The frequent monitoring should occur until PTT in goal range for two consecutive lab draws without dose changes at which time PTTs may be checked no less frequently than every 12 hours.? If dose requires a change, PTT should be monitored at least every 6 hours until titration is no longer indicated, then as directed above.? If PTT above goal range refer to medication administration instructions. Performed By: #### X M #### [facility] (DEFAULT) [address] [address] aPTT Coag (Bld) [Time] 49.7 s High 24.0-34.[address] [facility] Comment on above: Order Comment: After initiation a PTT should be checked every 6 hours from time of last dose change or, if dose has not changed, 6 hours after last PTT result posted.? The frequent monitoring should occur until PTT in goal range for two consecutive lab draws without dose changes at which time PTTs may be checked no less frequently than every 12 hours.? If dose requires a change, PTT should be monitored at least every 6 hours until titration is no longer indicated, then as directed above.? If PTT above goal range refer to medication administration instructions. Performed By: #### X M #### [facility] (DEFAULT) [address] [address] CALCIUMon 02-21-2025 Calcium [Mass/Vol] 8.3 mg/dL Low 8.6-10.5 [facility] Comment on above: Performed By: #### S URGP #### [facility] (DEFAULT) [address] [place] [address] CBC,PLATELETSon 02-21-2025 Hematocrit (Bld) [Volume fraction] 27.2 % Low 39.6-48.8 [facility] Comment on above: Performed By: #### [facility] #### [facility] (DEFAULT) [address] [address] Hemoglobin (Bld) [Mass/Vol] 8.1 g/dL Low 13.4-16.8 [facility] Comment on above: Performed By: #### H EMO #### [facility] (DEFAULT) [address] [place] [address] MCV (RBC) [Entitic vol] 109.7 fL High 79.0-94.5 O [facility] Comment on above: Performed By: #### H EMOGC #### [facility] (DEFAULT) [address] [place] [address]251 Mean Cell Hgb 32.7 pg Normal 26.1-33.3 [facility] Comment on above: Performed By: #### H EMOGC #### [facility] (DEFAULT) [address] [address] Mean Cell Hgb Conc 29.8 g/dL Low 31.9-36.5 [facility] Comment on above: Performed By: #### H EMOGC #### [facility] (DEFAULT) [address] [place] [address]927 Platelet mean volume (Bld) [Entitic vol] 11.0 fL Normal 8.7-12.3 [facility] Comment on above: Performed By: #### H EMOGC #### [facility] (DEFAULT) [address] [address] Platelets (Bld) [#/Vol] 141 10*3/uL Low 146-337 [facility] Comment on above: Performed By: #### H EMOGC #### [facility] (DEFAULT) [address] [address] RBC (Bld) [#/Vol] 2.48 10*6/uL Low 4.38-5.83 [facility] Comment on above: Performed By: #### H EMOGC #### [facility] (DEFAULT) [address] [address] RBC Distribution 19.1 % High 10.9-14.3 [facility] Comment on above: Performed By: #### H EMOGC #### [facility] (DEFAULT) [address] [address] WBC (Bld) [#/Vol] 8.97 10*3/uL Normal 3.73-10.10 [facility] Comment on above: Performed By: #### H EMO #### [facility] (DEFAULT) [address] [place] [address] CHEM 7 (LYTES,BUN,CREA,GLUC) on 02-21-2025 Anion gap [Moles/Vol] 17 mmol/L Normal 7-17 [facility] Comment on above: Performed By: #### G EN #### [facility] (DEFAULT) [address] [place] [address]041 Chloride [Moles/Vol] 99 mmol/L Normal 98-108 [facility] Comment on above: Performed By: #### G EN #### [facility] (DEFAULT) [address] [place] [address]125 CO2 [Moles/Vol] 23 mmol/L Normal 21-31 [facility] Comment on above: Performed By: #### G EN #### [facility] (DEFAULT) [address] [place] [address] Creatinine [Mass/Vol] 6.62 mg/dL High 0.70-1.30 [facility] Comment on above: Performed By: #### G EN #### [facility] (DEFAULT) [address] [place] [address] GFR/1.73 sq M.predicted among non-blacks MDRD (S/P/Bld) [Vol rate/Area] 8 mL/min/{1.73_m2} Low >=60 [facility] Comment on above: Result Comment: Repo rted eGFR is based on the CKD-EPI 2020 equation using creatinine, age, and sex. Performed By: #### G EN #### [facility] (DEFAULT) [address] [place] [address]758 Glucose [Mass/Vol] 108 mg/dL Normal Nonfastin -179 mg/dL; Fastin-99 [facility] Comment on above: Performed By: #### G EN #### [facility] (DEFAULT) [address] [place] [address]31 Osmolality [Osmolality] 289 mosm/kg Normal 278-305 [facility] Comment on above: Performed By: #### G EN #### [facility] (DEFAULT) [address] [place] [address] Potassium [Moles/Vol] 3.7 mmol/L [facility] 3.5-5.0 [facility] above: Performed By: #### G EN #### [facility] (DEFAULT) [address] [place] [address] Sodium [Moles/Vol] 135 mmol/L Normal 135-145 [facility] Comment on above: Performed By: #### G EN #### [facility] (DEFAULT) [address] [place] [address]72 Urea nitrogen [Mass/Vol] 28 mg/dL High 7-25 [facility] Comment on above: Performed By: #### G EN #### [facility] (DEFAULT) [address] [place] [address]679 Urea nitrogen/Creatinine [Mass ratio] 4 mg/mg Normal [facility] Comment on above: Performed By: #### G EN #### [facility] (DEFAULT) [address] [place] [address] Laboratory - Chemistry and C hemistry - challengeOrdered By: Summer Thompson on 02-21-2025 Anion gap [Moles/Vol] 17 mmol/L 7 - 17 mmol/L [facility] Chloride [Moles/Vol] 99 mmol/L 98 - 10 8 mmol/L [facility] CO2 [Moles/Vol] 23 mmol/L 21 - 31 mmol/L [facility] Creatinine [Mass/Vol] 6.62 mg/dL High 0.70 - 1.30 mg/dL [facility] Glucose [Mass/Vol] 108 mg/dL 70 - 179 mg/dL [facility] Osmolality Calc [Osmolality] [address] [facility] Potassium [Moles/Vol] 3.7 mmol/L 3.5 - 5.0 mmol/L [facility] Sodium [Moles/Vol] 135 mmol/L 135 - 145 mmol/L [facility] Urea nitrogen [Mass/Vol] 28 mg/dL High 7 - 25 [facility] Urea [facility]/Creatinine [Mass ratio] 4 mg[facility] Laboratory - Chemistry and C hemistry - challengeon 02-21-2025 Calcium [Mass/Vol] 8.3 mg/dL Low 8.6 - 10. 5 mg/dL [facility] Magnesium [Mass/Vol] 1.5 mg/dL Low 1.6 - 2 .6 mg/dL [facility] Phosphate [Mass/Vol] 3.2 mg/dL 2.2 - 4 .6 mg/dL [facility] Laboratory - CoagulationOrde red By: Linh Jang on 02-21-2025 aPTT Coag (PPP) [Time] 132.7 s High OS [facility] Laboratory - Coagulationon 0 02-21-2025 aPTT Coag (PPP) [Time] 93.9 s High OS [facility] INR Coag (Bld) [Relative time] 1.2 {INR} High 0.9 - 1.1 [facility] PT Coag (PPP) [Time] 14.8 s High [facility] Laboratory - Hematology and Cell countson 02-21-2025 Erythrocyte distribution width (RBC) [Ratio] 19.1 % High 10.9 - 14.3 % [facility] Hematocrit (Bld) [Volume fraction] 27.2 % Low 39.6 - 48.8 % [facility] Hemoglobin (Bld) [Mass/Vol] 8.1 g/dL Low 13.4 - 16.8 g/dL [facility] MCH (RBC) [Entitic mass] 32.7 pg 26.1 - 33.3 pg [facility] MCHC (RBC) [Mass/Vol] 29.8 g/dL Low 31.9 - 36.5 g/dL [facility] MCV (RBC) [Entitic vol] 109.7 fL High 79.0 - 94.5 fL [facility] Platelet mean volume (Bld) [Entitic vol] 11 fL 8.7 - 12.3 fL [facility] Platelets (Bld) [#/Vol] 141 10*3/uL Low 146 - 337 K/uL [facility] RBC (Bld) [#/Vol] 2.48 10*6/uL Low [facility] WBC (Bld) [#/Vol] 8.97 10*3/uL 3.73 - 10. 10 K/uL [facility] MAGNESIUMon 02-21-2025 Magnesium [Mass/Vol] 1.5 mg/dL Low 1.6-2.6 [facility] Comment on above: Performed By: #### G EN #### [facility] (DEFAULT) [address] [place] [address] No Panel InformationOrdered By: Linh Jang on 02-21-2025 Interpretation and review of laboratory results Abnormal [facility] No Panel Informationon 02-21 Interpretation and review of laboratory results Abnormal [facility] ABO/RH(D) TYPE Positive [facility] Specimen Expiration 02/24/2025 01:05 [facility] Interpretation and review of laboratory results Abnormal [facility] Interpretation and review of laboratory results Normal [facility] Interpretation and review of laboratory results Abnormal [facility] Interpretation and review of laboratory results Abnormal [facility] No Panel InformationOrdered By: Summer Thompson on 02-21-2025 eGFR, CKD-EPI, Male 8 Low - PINF [facility] Interpretation and review of laboratory results Abnormal [facility] PHOSPHATE, INORGANICon 02-21 Phosphorous 3.2 mg/dL Normal 2.2-4.6 [facility] Comment on above: Performed By: #### G EN #### [facility] (DEFAULT) [address] [address] PROTIME-INRon 02-21-2025 INR Coag (PPP) [Relative time] 1.2 {INR} High 0.9-1.1 [facility] Comment on above: Performed By: #### X M #### [facility] (DEFAULT) [address] [address] PT Coag (PPP) [Time] 14.8 s High 11.9-14.2 [facility] Comment on above: Performed By: #### X M #### [facility] (DEFAULT) [address] [address] PTTon 02-21-2025 aPTT Coag (Bld) [Time] 132.7 s High 24.0-34.[address] [facility] Comment on above: Order Comment: After initiation a PTT should be checked every 6 hours from time of last dose change or, if dose has not changed, 6 hours after last PTT result posted.? The frequent monitoring should occur until PTT in goal range for two consecutive lab draws without dose changes at which time PTTs may be checked no less frequently than every 12 hours.? If dose requires a change, PTT should be monitored at least every 6 hours until titration is no longer indicated, then as directed above.? If PTT above goal range refer to medication administration instructions. Performed By: #### X M #### [facility] (DEFAULT) [address] [address] aPTT Coag (Bld) [Time] 93.9 s High 24.0-34.[address] [facility] Comment on above: Order Comment: After initiation a PTT should be checked every 6 hours from time of last dose change or, if dose has not changed, 6 hours after last PTT result posted.? The frequent monitoring should occur until PTT in goal range for two consecutive lab draws without dose changes at which time PTTs may be checked no less frequently than every 12 hours.? If dose requires a change, PTT should be monitored at least every 6 hours until titration is no longer indicated, then as directed above.? If PTT above goal range refer to medication administration instructions. Performed By: #### G EN #### [facility] (DEFAULT) [address] [address] TYPE AND SCREENon 02-21-2025 ABO/RH(D) TYPE Positive Normal [facility] Comment on above: Performed By: #### S URGP #### [facility] (DEFAULT) [address] [address] Specimen Expiration 02/24/2025 01:05 Normal [facility] Comment on above: Performed By: #### S URGP #### [facility] (DEFAULT) [address] [address] CBC,PLATELETSon 02-20-2025 Hematocrit (Bld) [Volume fraction] 27.2 % Low 39.6-48.8 [facility] Comment on above: Performed By: #### H EMOGC #### [facility] (DEFAULT) [address] [address] Hemoglobin (Bld) [Mass/Vol] 8.2 g/dL Low 13.4-16.8 [facility] Comment on above: Performed By: #### H EMOGC #### [facility] (DEFAULT) [address] [address] MCV (RBC) [Entitic vol] 111.0 fL High 79.0-94.5 O [facility] Comment on above: Performed By: #### H EMOGC #### [facility] (DEFAULT) [address] [address] Mean Cell Hgb 33.5 pg High 26.1-33.3 [facility] Comment on above: Performed By: #### H EMOGC #### [facility] (DEFAULT) [address] [address] Mean Cell Hgb Conc 30.1 g/dL Low 31.9-36.5 [facility] Comment on above: Performed By: #### H EMOGC #### [facility] (DEFAULT) [address] [place] [address] Platelet mean volume (Bld) [Entitic vol] 9.5 fL Normal 8.7-12.3 [facility] Comment on above: Performed By: #### H EMOGC #### [facility] (DEFAULT) [address] [place] [address] Platelets (Bld) [#/Vol] 169 10*3/uL Normal 146-337 [facility] Comment on above: Performed By: #### H EMOGC #### [facility] (DEFAULT) [address] [address] RBC (Bld) [#/Vol] 2.45 10*6/uL Low 4.38-5.83 [facility] Comment on above: Performed By: #### H EMOGC #### [facility] (DEFAULT) [address] [place] [address] RBC Distribution 19.2 % High 10.9-14.3 [facility] Comment on above: Performed By: #### H EMOGC #### [facility] (DEFAULT) [address] [place] [address] WBC (Bld) [#/Vol] 9.07 10*3/uL Normal 3.73-10.10 [facility] Comment on above: Performed By: #### H EMOGC #### [facility] (DEFAULT) [address] [address] CHEM 7 (LYTES,BUN,CREA,GLUC) on 02-20-2025 Anion gap [Moles/Vol] 15 mmol/L Normal 7-17 [facility] Comment on above: Performed By: #### P TT #### [facility] (DEFAULT) [address] [place] [address] Chloride [Moles/Vol] 98 mmol/L Normal 98-108 [facility] Comment on above: Performed By: #### P TT #### [facility] (DEFAULT) [address] [place] [address] CO2 [Moles/Vol] 28 mmol/L Normal 21-31 [facility] Comment on above: Performed By: #### P TT #### [facility] (DEFAULT) [address] [place] [address] Creatinine [Mass/Vol] 4.40 mg/dL High 0.70-1.30 [facility] Comment on above: Performed By: #### P TT #### [facility] (DEFAULT) [address] [place] [address]25 GFR/1.73 sq M.predicted among non-blacks MDRD (S/P/Bld) [Vol rate/Area] 13 mL/min/{1.73_m2} Low >=60 [facility] Comment on above: Result Comment: Repo rted eGFR is based on the CKD-EPI 2020 equation using creatinine, age, and sex. Performed By: #### P TT #### [facility] (DEFAULT) [address] [place] [address] Glucose [Mass/Vol] 99 mg/dL Normal Nonfastin -179 mg/dL; Fastin-99 [facility] Comment on above: Performed By: #### P TT #### [facility] (DEFAULT) [address] [place] [address] Osmolality [Osmolality] 288 mosm/kg Normal 278-305 [facility] Comment on above: Performed By: #### P TT #### [facility] (DEFAULT) [address] [place] [address] Potassium [Moles/Vol] 4.0 mmol/L Normal 3.5-5.0 [facility] Comment on above: Performed By: #### P TT #### [facility] (DEFAULT) [address] [place] [address]77 Sodium [Moles/Vol] 137 mmol/L Normal 135-145 [facility] Comment on above: Performed By: #### P TT #### [facility] (DEFAULT) [address] [place] [address] Urea nitrogen [Mass/Vol] 14 mg/dL Normal 7-25 [facility] Comment on above: Performed By: #### P TT #### [facility] (DEFAULT) [address] [place] [address]75 Urea nitrogen/Creatinine [Mass ratio] 3 mg/mg Normal [facility] Comment on above: Performed By: #### P TT #### [facility] (DEFAULT) [address] [place] [address] Laboratory - Chemistry and C hemistry - challengeon 02-20-2025 Anion gap [Moles/Vol] 15 mmol/L 7 - 17 mmol/L [facility] Chloride [Moles/Vol] 98 mmol/L 98 - 10 8 mmol/L [facility] CO2 [Moles/Vol] 28 mmol/L 21 - 31 mmol/L [facility] Creatinine [Mass/Vol] 4.4 mg/dL High 0.70 - 1.30 mg/dL [facility] Glucose [Mass/Vol] 99 mg/dL 70 - 179 mg/dL [facility] Osmolality Calc [Osmolality] 288 [facility] Potassium [Moles/Vol] 4 mmol/L 3.5 - 5.0 mmol/L [facility] Sodium [Moles/Vol] 137 mmol/L 135 - 145 mmol/L [facility] Urea nitrogen [Mass/Vol] 14 mg/dL 7 - 25 mg/dL [facility] Urea nitrogen/Creatinine [Mass ratio] 3 mg/mg [facility] Magnesium [Mass/Vol] 1.7 mg/dL 1.6 - 2 .6 mg/dL [facility] Phosphate [Mass/Vol] 2.1 mg/dL Low 2.2 - 4 .6 mg/dL [facility] Laboratory - Coagulationon 0 02-20-2025 aPTT Coag (PPP) [Time] 93.3 s High OS [facility] aPTT Coag (PPP) [Time] 88.2 s High OS [facility] INR Coag (Bld) [Relative time] 1.1 {INR} 0.9 - 1.1 [facility] PT Coag (PPP) [Time] 14.5 s High [facility] Laboratory - Hematology and Cell countson 02-20-2025 Erythrocyte distribution width (RBC) [Ratio] 19.2 % High 10.9 - 14.3 % [facility] Hematocrit (Bld) [Volume fraction] 27.2 % Low 39.6 - 48.8 % [facility] Hemoglobin (Bld) [Mass/Vol] 8.2 g/dL Low 13.4 - 16.8 g/dL [facility] MCH (RBC) [Entitic mass] 33.5 pg High 26.1 - 33.3 pg [facility] MCHC (RBC) [Mass/Vol] 30.1 g/dL Low 31.9 - 36.5 g/dL [facility] MCV (RBC) [Entitic vol] 111 fL High 79.0 - 94.5 fL [facility] Platelet mean volume (Bld) [Entitic vol] 9.5 fL 8.7 - 12.3 fL [facility] Platelets (Bld) [#/Vol] 169 10*3/uL 146 - 337 K/uL [facility] RBC (Bld) [#/Vol] 2.45 10*6/uL Low [facility] WBC (Bld) [#/Vol] 9.07 10*3/uL 3.73 - 10. 10 K/uL [facility] MAGNESIUMon 02-20-2025 Magnesium [Mass/Vol] 1.7 mg/dL Normal 1.6-2.6 [facility] Comment on above: Performed By: #### P TT #### [facility] (DEFAULT) [address] [place] [address] No Panel Informationon 02-20 Interpretation and review of laboratory results Abnormal [facility] Interpretation and review of laboratory results Abnormal [facility] eGFR, CKD-EPI, Male 13 Low - PINF [facility] Interpretation and review of laboratory results Abnormal [facility] Interpretation and review of laboratory results Normal [facility] Interpretation and review of laboratory results Abnormal [facility] Interpretation and review of laboratory results Abnormal [facility] Interpretation and review of laboratory results Abnormal [facility] PHOSPHATE, INORGANICon 02-20 Phosphorous 2.1 mg/dL Low 2.2-4.6 [facility] Comment on above: Performed By: #### P TT #### [facility] (DEFAULT) [address] [place] [id number] PROTIME-INRon 02-20-2025 INR Coag (PPP) [Relative time] 1.1 {INR} Normal 0.9-1.1 [facility] Comment on above: Performed By: #### X M #### [facility] (DEFAULT) [address] [place] [address]459 PT Coag (PPP) [Time] 14.5 s High 11.9-14.2 [facility] Comment on above: Performed By: #### X M #### [facility] (DEFAULT) [address] [place] [address] 57068 PTTon 02-20-2025 aPTT Coag (Bld) [Time] 93.3 s High 24.0-34.[address] [facility] Comment on above: Order Comment: After initiation a PTT should be checked every 6 hours from time of last dose change or, if dose has not changed, 6 hours after last PTT result posted.? The frequent monitoring should occur until PTT in goal range for two consecutive lab draws without dose changes at which time PTTs may be checked no less frequently than every 12 hours.? If dose requires a change, PTT should be monitored at least every 6 hours until titration is no longer indicated, then as directed above.? If PTT above goal range refer to medication administration instructions. Performed By: #### X M #### [facility] (DEFAULT) [address] [address] aPTT Coag (Bld) [Time] 88.2 s High 24.0-34.3 [place] [facility] Comment on above: Order Comment: After initiation a PTT should be checked every 6 hours from time of last dose change or, if dose has not changed, 6 hours after last PTT result posted.? The frequent monitoring should occur until PTT in goal range for two consecutive lab draws without dose changes at which time PTTs may be checked no less frequently than every 12 hours.? If dose requires a change, PTT should be monitored at least every 6 hours until titration is no longer indicated, then as directed above.? If PTT above goal range refer to medication administration instructions. Performed By: #### X M #### [facility] (DEFAULT) [address] [address] CBC,PLATELETSon 02-19-2025 Hematocrit (Bld) [Volume fraction] 26.3 % Low 39.6-48.8 [facility] Comment on above: Performed By: #### X M #### [facility] (DEFAULT) [address] [address] Hemoglobin (Bld) [Mass/Vol] 8.0 g/dL Low 13.4-16.8 [facility] Comment on above: Performed By: #### X M #### [facility] (DEFAULT) [address] [address] MCV (RBC) [Entitic vol] 110.5 fL High 79.0-94.5 O [facility] Comment on above: Performed By: #### X M #### [facility] (DEFAULT) [address] [address] Mean Cell Hgb 33.6 pg High 26.1-33.3 [facility] Comment on above: Performed By: #### X M #### [facility] (DEFAULT) [address] [place] [address]66 Mean Cell Hgb Conc 30.4 g/dL Low 31.9-36.5 [facility] Comment on above: Performed By: #### X M #### [facility] (DEFAULT) [address] [place] [address] Platelet mean volume (Bld) [Entitic vol] 10.0 fL Normal 8.7-12.3 [facility] Comment on above: Performed By: #### X M #### [facility] (DEFAULT) [address] [place] [address] Platelets (Bld) [#/Vol] 166 10*3/uL Normal 146-337 [facility] Comment on above: Performed By: #### X M #### [facility] (DEFAULT) [address] [place] [address] RBC (Bld) [#/Vol] 2.38 10*6/uL Low 4.38-5.83 [facility] Comment on above: Performed By: #### X M #### [facility] (DEFAULT) [address] [address] RBC Distribution 19.2 % High 10.9-14.3 [facility] Comment on above: Performed By: #### X M #### [facility] (DEFAULT) [address] [place] [address] WBC (Bld) [#/Vol] 9.51 10*3/uL Normal 3.73-10.10 [facility] Comment on above: Performed By: #### X M #### [facility] (DEFAULT) [address] [place] [address] CHEM 7 (LYTES,BUN,CREA,GLUC) on 02-19-2025 Anion gap [Moles/Vol] 17 mmol/L Normal 7-17 [facility] Comment on above: Performed By: #### G EN #### [facility] (DEFAULT) [address] [place] [address]25 Chloride [Moles/Vol] 99 mmol/L Normal 98-108 [facility] Comment on above: Performed By: #### G EN #### [facility] (DEFAULT) [address] [address] CO2 [Moles/Vol] 25 mmol/L Normal 21-31 [facility] Comment on above: Performed By: #### G EN #### [facility] (DEFAULT) [address] [address] Creatinine [Mass/Vol] 7.51 mg/dL High 0.70-1.30 [facility] Comment on above: Performed By: #### G EN #### [facility] (DEFAULT) [address] [address] GFR/1.73 sq M.predicted among non-blacks MDRD (S/P/Bld) [Vol rate/Area] 7 mL/min/{1.73_m2} Low >=60 [facility] Comment on above: Result Comment: Repo rted eGFR is based on the CKD-EPI 2020 equation using creatinine, age, and sex. Performed By: #### G EN #### [facility] (DEFAULT) [address] [address] Glucose [Mass/Vol] 93 mg/dL Normal Nonfastin -179 mg/dL; Fastin-99 [facility] Comment on above: Performed By: #### G EN #### [facility] (DEFAULT) [address] [place] [address] Osmolality [Osmolality] 291 mosm/kg Normal 278-305 [facility] Comment on above: Performed By: #### G EN #### [facility] (DEFAULT) [address] [address] Potassium [Moles/Vol] 3.8 mmol/L Normal 3.5-5.0 [facility] Comment on above: Performed By: #### G EN #### [facility] (DEFAULT) [address] [place] [address] Sodium [Moles/Vol] 137 mmol/L Normal 135-145 [facility] Comment on above: Performed By: #### G EN #### [facility] (DEFAULT) [address] [place] [address] Urea nitrogen [Mass/Vol] 27 mg/dL High 7-25 [facility] Comment on above: Performed By: #### G EN #### [facility] (DEFAULT) [address] [place] [address] Urea nitrogen/Creatinine [Mass ratio] 4 mg/mg Normal [facility] Comment on above: Performed By: #### G EN #### [facility] (DEFAULT) [address] [address] Laboratory - Chemistry and C hemistry - challengeOrdered By: Fernanda Mcgill on 02-19-2025 Anion gap [Moles/Vol] 17 mmol/L 7 - 17 mmol/L [facility] Chloride [Moles/Vol] 99 mmol/L 98 - 10 8 mmol/L [facility] CO2 [Moles/Vol] 25 mmol/L 21 - 31 mmol/L [facility] Creatinine [Mass/Vol] 7.51 mg/dL High 0.70 - 1.30 mg/dL [facility] Glucose [Mass/Vol] 93 mg/dL 70 - 179 mg/dL [facility] Osmolality Calc [Osmolality] 291 [facility] Potassium [Moles/Vol] 3.8 mmol/L 3.5 - 5.0 mmol/L [facility] Sodium [Moles/Vol] 137 mmol/L 135 - 145 mmol/L [facility] Urea nitrogen [Mass/Vol] 27 mg/dL High 7 - 25 mg/dL [facility] Urea nitrogen/Creatinine [Mass ratio] 4 mg/mg [facility] - Chemistry and C hemistry - challengeon 02-19-2025 Magnesium [Mass/Vol] 1.6 mg/dL 1.6 - 2 .6 mg/dL [facility] Phosphate [Mass/Vol] 3.2 mg/dL 2.2 - 4 .6 mg/dL [facility] Laboratory - Coagulationon 0 02-19-2025 aPTT Coag (PPP) [Time] 93.2 s High OS [facility] aPTT Coag (PPP) [Time] 95.8 s High OS [facility] aPTT Coag (PPP) [Time] 93.3 s High OS [facility] INR Coag (Bld) [Relative time] 1.2 {INR} High 0.9 - 1.[address] [facility] PT Coag (PPP) [Time] 15.4 s High [facility] Laboratory - Hematology and Cell countson 02-19-2025 Erythrocyte distribution width (RBC) [Ratio] 19.2 % High 10.9 - 14.3 % [facility] Hematocrit (Bld) [Volume fraction] 26.3 % Low 39.6 - 48.8 % [facility] Hemoglobin (Bld) [Mass/Vol] 8 g/dL Low 13.4 - 16.8 g/dL [facility] MCH (RBC) [Entitic mass] 33.6 pg High 26.1 - 33.3 pg [facility] MCHC (RBC) [Mass/Vol] 30.4 g/dL Low 31.9 - 36.5 g/dL [facility] MCV (RBC) [Entitic vol] 110.5 fL High 79.0 - 94.5 fL [facility] Platelet mean volume (Bld) [Entitic vol] 10 fL 8.7 - 12.3 fL [facility] Platelets (Bld) [#/Vol] 166 10*3/uL 146 - 337 K/uL [facility] RBC (Bld) [#/Vol] 2.38 10*6/uL Low [facility] WBC (Bld) [#/Vol] 9.51 10*3/uL 3.73 - 10. 10 K/uL [facility] MAGNESIUMon 02-19-2025 Magnesium [Mass/Vol] 1.6 mg/dL Normal 1.6-2.6 [facility] Comment on above: Performed By: #### G EN #### [facility] (DEFAULT) [address] [place] [phone] No Panel Informationon 02-19 Interpretation and review of laboratory results Abnormal [facility] Interpretation and review of laboratory results Abnormal [facility] Interpretation and review of laboratory results Abnormal [facility] Interpretation and review of laboratory results Abnormal [facility] Interpretation and review of laboratory results Normal [facility] Interpretation and review of laboratory results Abnormal [facility] No Panel InformationOrdered By: Fernanda Mcgill on 02-19-2025 eGFR, CKD-EPI, Male 7 Low - PINF [facility] Interpretation and review of laboratory results Abnormal [facility] PHOSPHATE, INORGANICon 02-19 Phosphorous 3.2 mg/dL Normal 2.2-4.6 [facility] Comment on above: Performed By: #### G EN #### [facility] (DEFAULT) [address] [place] [address] PROTIME-INRon 02-19-2025 INR Coag (PPP) [Relative time] 1.2 {INR} High 0.9-1.1 [facility] Comment on above: Performed By: #### S URGP #### [facility] (DEFAULT) [address] [place] [address] PT Coag (PPP) [Time] 15.4 s High 11.9-14.2 [facility] Comment on above: Performed By: #### S URGP #### [facility] (DEFAULT) [address] [place] [address] PTTon 02-19-2025 aPTT Coag (Bld) [Time] 93.2 s High 24.0-34.[address] [facility] Comment on above: Order Comment: After initiation a PTT should be checked every 6 hours from time of last dose change or, if dose has not changed, 6 hours after last PTT result posted.? The frequent monitoring should occur until PTT in goal range for two consecutive lab draws without dose changes at which time PTTs may be checked no less frequently than every 12 hours.? If dose requires a change, PTT should be monitored at least every 6 hours until titration is no longer indicated, then as directed above.? If PTT above goal range refer to medication administration instructions. Performed By: #### P TT ####[facility] (DEFAULT)[address] [place] [address] aPTT Coag (Bld) [Time] 95.8 s High 24.0-34.[address] [facility] Comment on above: Order Comment: After initiation a PTT should be checked every 6 hours from time of last dose change or, if dose has not changed, 6 hours after last PTT result posted.? The frequent monitoring should occur until PTT in goal range for two consecutive lab draws without dose changes at which time PTTs may be checked no less frequently than every 12 hours.? If dose requires a change, PTT should be monitored at least every 6 hours until titration is no longer indicated, then as directed above.? If PTT above goal range refer to medication administration instructions. Performed By: #### P TT #### [facility] (DEFAULT) [address] [place] [address] aPTT Coag (Bld) [Time] 93.3 s High 24.0-34.[address] [facility] Comment on above: Order Comment: After initiation a PTT should be checked every 6 hours from time of last dose change or, if dose has not changed, 6 hours after last PTT result posted.? The frequent monitoring should occur until PTT in goal range for two consecutive lab draws without dose changes at which time PTTs may be checked no less frequently than every 12 hours.? If dose requires a change, PTT should be monitored at least every 6 hours until titration is no longer indicated, then as directed above.? If PTT above goal range refer to medication administration instructions. Performed By: #### S URGP #### [facility] (DEFAULT) [address] [place] [address] CBC,PLATELETSon 02-18-2025 Hematocrit (Bld) [Volume fraction] 26.8 % Low 39.6-48.8 [facility] Comment on above: Performed By: #### P TT #### [facility] (DEFAULT) [address] [place] [address] Hemoglobin (Bld) [Mass/Vol] 8.2 g/dL Low 13.4-16.8 [facility] Comment on above: Performed By: #### P TT #### [facility] (DEFAULT) [address] [place] [address] MCV (RBC) [Entitic vol] 110.3 fL High 79.0-94.5 [facility] Comment on above: Performed By: #### P TT #### [facility] (DEFAULT) [address] [place] [address] Mean Cell Hgb 33.7 pg High 26.1-33.3 [facility] Comment on above: Performed By: #### P TT #### [facility] (DEFAULT) [address] [place] [address] Mean Cell Hgb Conc 30.6 g/dL Low 31.9-36.5 [facility] Comment on above: Performed By: #### P TT #### [facility] (DEFAULT) [address] [place] [address] Platelet mean volume (Bld) [Entitic vol] 10.1 fL Normal 8.7-12.3 [facility] Comment on above: Performed By: #### P TT #### [facility] (DEFAULT) [address] [place] [address] Platelets (Bld) [#/Vol] 188 10*3/uL Normal 146-337 [facility] Comment on above: Performed By: #### P TT #### [facility] (DEFAULT) [address] [place] [address] RBC (Bld) [#/Vol] 2.43 10*6/uL Low 4.38-5.83 [facility] Comment on above: Performed By: #### P TT #### [facility] (DEFAULT) [address] [place] [address] RBC Distribution 19.2 % High 10.9-14.3 [facility] Comment on above: Performed By: #### P TT #### [facility] (DEFAULT) [address] [place] [address] WBC (Bld) [#/Vol] 9.23 10*3/uL Normal 3.73-10.10 [facility] Comment on above: Performed By: #### P TT #### [facility] (DEFAULT) [address] [place] [address] CHEM 7 (LYTES,BUN,CREA,GLUC) on 02-18-2025 Anion gap [Moles/Vol] 17 mmol/L Normal 7-17 [facility] Comment on above: Performed By: #### X M #### [facility] (DEFAULT) [address] [place] [address] Chloride [Moles/Vol] 98 mmol/L Normal 98-108 [facility] Comment on above: Performed By: #### X M #### [facility] (DEFAULT) [address] [place] [address] CO2 [Moles/Vol] 25 mmol/L Normal 21-31 [facility] Comment on above: Performed By: #### X M #### [facility] (DEFAULT) [address] [place] [address] Creatinine [Mass/Vol] 4.82 mg/dL High 0.70-1.30 [facility] Comment on above: Performed By: #### X M #### [facility] (DEFAULT) [address] [place] [address] GFR/1.73 sq M.predicted among non-blacks MDRD (S/P/Bld) [Vol rate/Area] 12 mL/min/{1.73_m2} Low >=60 [facility] Comment on above: Result Comment: Repo rted eGFR is based on the CKD-EPI 2020 equation using creatinine, age, and sex. Performed By: #### X M #### [facility] (DEFAULT) [address] [place] [address] Glucose [Mass/Vol] 84 mg/dL Normal Nonfastin -179 mg/dL; Fastin-99 [facility] Comment on above: Performed By: #### X M #### [facility] (DEFAULT) [address] [place] [address] Osmolality [Osmolality] 286 mosm/kg Normal 278-305 [facility] Comment on above: Performed By: #### X M #### [facility] (DEFAULT) [address] [place] [address] Potassium [Moles/Vol] 4.2 mmol/L Normal 3.5-5.0 [facility] Comment on above: Performed By: #### X M #### [facility] (DEFAULT) [address] [place] [address] Sodium [Moles/Vol] 136 mmol/L Normal 135-145 [facility] Comment on above: Performed By: #### X M #### [facility] (DEFAULT) [address] [place] [address] Urea nitrogen [Mass/Vol] 16 mg/dL Normal 7-25 [facility] Comment on above: Performed By: #### X M #### [facility] (DEFAULT) [address] [place] [address] Urea nitrogen/Creatinine [Mass ratio] 3 mg/mg Normal [facility] Comment on above: Performed By: #### X M #### [facility] (DEFAULT) [address] [place] [address] Laboratory - Chemistry and C hemistry - challengeon 02-18-2025 Phosphate [Mass/Vol] 2.7 mg/dL 2.2 - 4 .6 mg/dL [facility] Anion gap [Moles/Vol] 17 mmol/L 7 - 17 mmol/L [facility] Chloride [Moles/Vol] 98 mmol/L 98 - 10 8 mmol/L [facility] CO2 [Moles/Vol] 25 mmol/L 21 - 31 mmol/L [facility] Creatinine [Mass/Vol] 4.82 mg/dL High 0.70 - 1.30 mg/dL [facility] Glucose [Mass/Vol] 84 mg/dL 70 - 179 mg/dL [facility] Magnesium [Mass/Vol] 1.7 mg/dL 1.6 - 2 .6 mg/dL [facility] Osmolality Calc [Osmolality] 286 [facility] Potassium [Moles/Vol] 4.2 mmol/L 3.5 - 5.0 mmol/L [facility] Sodium [Moles/Vol] 136 mmol/L 135 - 145 mmol/L [facility] Urea nitrogen [Mass/Vol] 16 mg/dL 7 - 25 mg/dL [facility] Urea nitrogen/Creatinine [Mass ratio] 3 mg/mg [facility] Laboratory - Coagulationon 0 02-18-2025 aPTT Coag (PPP) [Time] 91.2 s High [facility] aPTT Coag (PPP) [Time] 80.4 s High [facility] INR Coag (Bld) [Relative time] 1.4 {INR} High 0.9 - 1.1 [facility] PT Coag (PPP) [Time] 16.7 s [facility] aPTT Coag (PPP) [Time] 64.5 s High [facility] Laboratory - CoagulationOrde red By: Marybeth Russo on 02-18-2025 aPTT Coag (PPP) [Time] 49.3 s High [facility] Laboratory - Hematology and Cell countson 02-18-2025 Erythrocyte distribution width (RBC) [Ratio] 19.2 % High 10.9 - 14.3 % [facility] Hematocrit (Bld) [Volume fraction] 26.8 % Low 39.6 - 48.8 % [facility] Hemoglobin (Bld) [Mass/Vol] 8.2 g/dL Low 13.4 - 16.8 g/dL [facility] MCH (RBC) [Entitic mass] 33.7 pg High 26.1 - 33.3 pg [facility] MCHC (RBC) [Mass/Vol] 30.6 g/dL Low 31.9 - 36.5 g/dL [facility] MCV (RBC) [Entitic vol] 110.3 fL High 79.0 - 94.5 fL [facility] Platelet mean volume (Bld) [Entitic vol] 10.1 fL 8.7 - 12.3 fL [facility] Platelets (Bld) [#/Vol] 188 10*3/uL 146 - 337 K/uL [facility] RBC (Bld) [#/Vol] 2.43 10*6/uL Low [facility] WBC (Bld) [#/Vol] 9.23 10*3/uL 3.73 - 10. 10 K/uL [facility] Platelet mean volume (Bld) [Entitic vol] 10.3 fL 8.7 - 12.3 fL [facility] Platelets (Bld) [#/Vol] 186 10*3/uL 146 - 337 K/uL [facility] MAGNESIUMon 02-18-2025 Magnesium [Mass/Vol] 1.7 mg/dL Normal 1.6-2.6 [facility] Comment on above: Performed By: #### X M #### [facility] (DEFAULT) [address] [place] [address] No Panel Informationon 02-18 Interpretation and review of laboratory results Abnormal [facility] Interpretation and review of laboratory results Abnormal [facility] Interpretation and review of laboratory results Abnormal [facility] ABO/RH(D) TYPE Positive [facility] Specimen Expiration 02/21/2025 03:43 [facility] Interpretation and review of laboratory results Abnormal [facility] Interpretation and review of laboratory results Normal [facility] eGFR, CKD-EPI, Male 12 Low - PINF [facility] Interpretation and review of laboratory results Abnormal [facility] Interpretation and review of laboratory results Normal [facility] Interpretation and review of laboratory results Abnormal [facility] Interpretation and review of laboratory results Normal [facility] No Panel InformationOrdered By: Faith Pina on 02-18-2025 Case Report [facility] Work Phone: Clinical History [id number] NVxh miHyQNLbjKSrG1UkduiaKAen QI3yIL5lqInkhPVkqNBpCVIs YlDgb1igh922rGJqr3cjSRZK dtrxnYv7hJqrP45rd9L3Dhbp W5adEWKkCStiKHDxEBrfsKNr CSw1JEBiwAJvpoKgXbKjTCHr yILjtIS9PXIrUE7htkzjTDyf UUvzBNFgthR8ZSQkqGZgO7Xk HLTgCD9hvrzoJNY5GUffMMVz OLW9DpLfLTWbg9Dplzz0PvOy xVq5l5pfBZCgFEAdkHcis1th AOC0UNYfgZXmC9mrvJ9xRYZh KR9eicmkt3znWDdaFUiyHNZl jSP8inE2JFKtuQFgE4RawR6o FHPgJNQswhTkzAvqrR8eIgKx DDbwUdUnHv9jMSykM6nkdQol WyHqOb7rCD0vmBnttxCcN6sb JVACGGVaW8WqNGptv8Ampyg7 ICBBdHJpYWwgdGFjaHljYXJk oZHwTGQPc5CmkaGeeZTvxuQg acuzHYohCGYxIX1wSZj3aPGk nDWai7ghebwmXkHgfBmuOsLp Z9MmfWY1I5YyinBbx6etTRMa HKVjIRNxAJSXC6UhenBqmR0r hxXfiWUfY4unKIFwSIUir54q m9UmgwF1xSCxJNBdysQcnkDv xWUzjWaxAkVcJX8tgKdyFnOm HPFrJK19xIJqSRd6qPSciQNp g8xikbxsIuSvuWlgNtCvIPL2 aHJpdGlzLiAgSGVtYXRvbWEu WVXBbA1eqC2uOI4yBSfsbPQ5 l8OoJPshPN9pKHn3bP37cQro t3tttIDzYhRdEYBrwOf9rY3b WK1lPPt4eXVxoHhnySOzyRig SxGtIYXzvYApFVCheWO5UVXj MSBLC0VlSZ1nkOfrLLAgeVHm UDGqbUxlU2BjHH37ZePcOXE5 f61ggLGbw9zgRvWsRlTdnGul YHCvd1F9OVIvDsUpzULgyuEm LCFhOK7nKHqeiMOhYAHAIWTu lMHoDPCgQOSCoATxPXtae9Bz srJcGwBtJ42mG3TghQk9HQGr PXJavEMbKCixdVLpYJY6sdWd BAXgUcgiDB4wDUAgeaByo747 r3JpmMv0XlFiR1OsbAmrAKJf d7OkKpHeWomnlN1chVqmBLia THB1WVCiw2Ciy8XiCQIHbXIc ciBkaXNlYXNlLiAgVHJhbnNp JV99JRepN5wvdJksXHV3kWGc vm3kJMqjg7Dfb5Oan0UvMVec YOlnflJynZH4LCBdn7Gqe5Hs XZZQTKu4dQWiol1jDVErm3Z4 pUTtEVLpq2Jub2IbYZxhXLF7 [facility] Work Phone: For Immediate Release to Patient's MyChart? Yes Yes [facility] Work Phone: Gross Description q5tthVIvOZLhg0nvWIUb bGFu ZzEwMzNcZnRuYmpcdWMxIHtc fxPtOLcrmKuzFHGoBCHfDL6l lPhrzFt7uJzbUCLappY5iHCv VFjay0gkGXG4x5gvbiwkQTOk VJeyJl2zlGTekLthCgNdWDZz TCf7kG42UDCwfJ1uvGPgWCfl qfNpTZInK3BkTG0aDHpjjUFu DNW0hGboJNSvusmrMnW8RJwd VHMigyltIVz3KGhfEAYgwCW0 LSFsjTYzK2QwMGFwAH2houe5 FRW3JFcxSPRxXeQ3UNUviDNi EOCdfDeaHImks828HAH3DePx TYZmneTwfByhqM7oMdXdOCUy VGhlIHNwZWNpbWVuIGlzIHJl N3MtxvLnMQuwQZ6uAHYdny0v ZXJseSBsYWJlbGVkIGNvbnRh tP9bvjZ5gORiMOKkIBCuXOXs FJ83T8NurvVeFCMzuaIeJSQo VOWhpP8rLW63aLHgcw1zDPCq ffqoISXlV2VhMARhK1LvKZ1m ePPpZVGxXHXlqVJlrH2xaaAg cuMhADIyE90ozWIjGEFtfYgf n6uyNBDsnZ4hTGY1oxjvdg7e XOwiN5icqMflXPAgS67bsDQh hAfjAR7gySIeED2qTOUwuwWr k0GzOG7uXX3rIDGyj2X6XWWq pvWht0X2uF5oLQ5nSVTgc3A1 CXV7vChxkODkttQnJzRlD10e kY2aF8NfABCqs1QpWCsfHP3h bF8cXoRkDKWhVMDllQQeNEEn vnBHMTAjBAMfPD0bcDl6IOcj IhiMUYSpBWl2Efl7PnjpXTUf ga88DYU8CgLdx3A6GGNcQiQd YWPeAP6tcZnpRBLtKC3xDTOd K3bioD5glbn9RsPbQQXdYqG3 JMEwyuW5Wzr0IOQmUNenq7kl i5MoFBYaIXn0eTfcVvHtHKZe m0wqvhBkMwLhHPEaUFXyPJMg vVCjV036k2hrm6pnjnFfcYZ4 FDXoPXN6XCusqtMbujV1BXvq uEFhNzS3HPixxcJwOUlvtvRt uiZgPau2CPCiN777KVN9aVaa l1qvHTJ1ITGcBCMzRmApWg7n pZSpM175CSWkIQIQLYOnkDn8 TFQvclRfwqQpaLTYg389S854 j7ppIDAuibUboCyChpdtd3aq B654OMMvgLMfqyWfSuCjTAPc yXFxpTX8RECzZT5gtryhSZxc PVjbCYHapjG2UUKuiRPiT2Ie WQWnSU3mgqtjEDT4BKtgCKNn YUX4KuKdSVRxj0Smthu3DmXn db9tgf40IBL2m5GojMdbBAS0 DOY4FsMbSa7voFNqVJCmZU6y EzHsxGUlFWBjkr03uOgnLCfb sgPmvQ3mMiExVYMkfIHgHVFd DP2yxXFiJKYleG7dvxpjMOHo UnJncmwgPBGwtDcinsOoOf0c tUgiQNB4VYpfI2bdgF0lKkP5 ZPpfP7uifP6tLHq7HNpbuSE1 IBZmdX0iLU0yelaea0blGOzp OTlrEPPwnrN3hiC0WHBsvRVj V0LfwR9iVKZwMP5ywysqj3nd GBC8TNpkAKPyHUU7OeUgFKDw t9Fjewa1QkIhj1AzvQPuXUcb X85me439LGJnfhZjB0pzzCMv rmiayDWornhbGBznqxN1LXVj XHBsYWluXGYxXGZzMjJcbGFu ZzEwMzNcaGljaFxmMVxkYmNo YQKxMTuwR5hwWwJoBkApXcWZ mw6gh7KgDZRnjyV3uXuhPFNv o0Cvh9RzWpPQnyW0VAfqbSIo cnRccGFyfX0= [facility] Work Phone: Microscopic Description a7orrUNvKYJdg4xu ZGVmbGFu ZzEwMzNcZnRuYmpcdWMxIHtc ftVuNCorx5OlR9PqXdWzIAmr bnNpXGRlZmxhbmcxMDMzXGZ0 ytPmTEXxDOilAKZsQBvgIh4l xPQmjEyrWvAmNWNsw7gevnPZ hqsibJd8g3iaRTJwYbP4uFSc FPfxT2vdcoZocCPfGEQfYCt3 qS19UYHbiA3umVUsNPexbjWi TmP7APvnMUSdOkY8RWKwnVTa YTOsZ7ihNLIjXQhuBNHaEVvd qZDaIUT7sZohz2C3dTKkuMCy zVetNtPcLzPfKoBZg5TeFIk1 tLpiG1WrSLSuJzH4hPYwJCSh QGqtAVOvSTIhuvG9uJ93ACsb iiW6jTAvs8Chk15tc913dD1o vYEgKIC7LBVmPYBygYQpFJJv NRP4ZNXlpSGhE5uyDODzSW6z pqarPVqzVAonVMUdhQJ4WBSx zUYaA1ZuHIVaBYgnZKKpimm3 PoKvNa7uqQJgfNjxEKlsu7hi i4blaZInRjt5MFXiFoPiEwtv OLqlr1Bxf1maERNxaj7jBLY8 dUNwkRezb3B1yQShHVWrlIKv muKbNOKvIbR8OEyaIN4lmo82 IPKhDBZ9zd9heIFkyFsjysXj hIGsWXcwX9HqFZIjy652PKSb X3UeSKKcv1R7odZdFjZgRUKd tBJ6kmN0MPVbSKm8wDAkrzD1 txWgxPBrF0crhM5oSHMwGI9p ejfsa0vaNCunOVqkGISesPR8 onP3DZNbcQHmN7QlvP8dSOGf VLefDCPmrry5CnHdMq5duNKh eTcyMFxzYmtwYWdlXHBnbmNv bnRccGduZGVjXHBsYWluXHBs YWluXGYwXGZzMjRccWxccGxh nY7fJqTnNuHfSUqrIK6zLYNs P1amiRDxSOFgZUTtP0tnJpBq hJ9dkDfkLTlojuDpOWOusVwd qf4kG68gnZWbGPsdvSftEUWc v95su1MzIOOcdcUpzd3lOR1h SCBjwm78ARP8KzWpm9C1VDZu NrRlCAXeSZ4spHvqLUPkFB9s DHUyZ1ycuD6pfnk3UnJaCXRo YgG0BBFpboN1Arh1BXTgLRqa x5snl2KuTOKyVRl9iWynHrYg DUMnu4fpijPnOdLkTTGsFTVw RCTsbPBtK969g4gqr4ioeyOx aEV1DYIxHDZ9TPrnasSuloP6 MZxwyTVlUaU9KYgwdiSgAMod lePaedYpXmv3CLQqU379ZRP4 xUfcq7ubZZU4NKAbWDSvKxHi Fs9boDZvG713GGUyKEWGGCBo dUz1AFQvsgCyfcIznBFEt775 L185g6rbABVfehUhwHaMjqjw z5deF970BBNmoGUfrgVgKoJk ABSjwAKzhDI9MUAvYO0cnhyt RCsxCPbjEGPvvsB1ACNaiXSv G3QuMIWpLE8jbhhvKMK7GXcs JMCjWNJ4SnSgRJWtx7Wvvce1 MbUciv4byw44UPQ1y6OthBun LRG4TLO8PaSkWf9ucQUiHXDb EW3uIhSgdIIjXHQpjc95yXbf CUgfjrWerL6iHoZeXACjxOZf HXXqLK9zkYMoXNXoxY1ilnap XHBnYnJkcmhlYWRccGdicmRy Jo9geAhqBST0HXsvE4rbrY8x KoM5VMsvA6okpW1dOWh6VKnd bXJ1QWQjuH5wEK4krikdg1al XYetTJnbAGVgxvL8mzR9QEAb jJLpV7DniX7rUZEsNE0vvsuh b7lsYMT0UAohHLRyUIM7SoJw GKFfh8Autcl4YqYcb2UcvVIm UIjzT44ym018CUGhztEkB3gy bGFpblxwbGFpblxmMFxmczI0 XHFsXHBsYWluXGYxXGZzMjBc bGFuZzEwMzNcaGljaFxmMVxk AyOrNSPwQQrlI2jzHvKtY3Mg UVAfWlFqnPVhDESfmFSqf982 an3enaNyqB50GVThoMRvoOFv RGZxTEUePMG0jAMqsOrvFPZd rYQodF11bu3geUT5q0WePN6q n8OrdVCfYPtTDSvgdL2op3o9 dHZocMQerFDekbF7oE0wKOyQ J8zjFTIeceBfsGhrhB6sqHFb qMFjtXW8IND9wkV5IFQgIYHk teMza9IcMOHobBImmuEdIWPv SGYpysHfhc4hEESazNG7tDQd W5EJGLbeeJ0wjrRVJDHrL2Mo IENlbnRlciBDbGluaWNhbCBM MGLcccM5g1U7QDTPjMZ1l5fl B9fiHT5eJHwUUaKZMZXmCVZ5 DHYMV6lifl0yyeSEt4ZzOMHF vXASNXwoYBTTo9y7vIX8vthm C6ozSJVaUMMaDFFOfYdpFU8s gJ5sObd4t1Xsi9OlrpMhNWfL NVN0RKH8skW7OLOxDLPyreAy o9ZqLQGyeTFhlwWiIEIpSESg ajTyiw8eDMVxmJA1kLGyZ6EH WXvopI7gccEAPMUnK8XkHTXv bnRlciBDbGluaWNhbCBMYWJv btR8l1Q2PFLGBC1yeLAVbGSj s6vjdujwCOUbCOrhVKPmgIyb VWMbcsFkHIXSj5z3hJR8kjue N6tjREOdYQMwCLWidEB8CRA7 cyByZXBvcnRlZCBoZXJlLCBl aJFkbULvSp4mRCHRTRtjFOGp XKHvLN3sdYIcNFXcVCJpQKYv BVGuGowzl4BlPCYuye73LXOi FawpvSkzVQQMCCHkw5HmQW6r SIOdzOetXFDxuA9ai4VfBZXb w09uAPPISHfhLZMnGTNqMSRr myV5d8M0VPlkUGAyD0VwSCAm WDP2wmMkeoSTBXxPBCHcKOX8 HDkdMiglDHN9zeXaJIZok4Tm HKzuJ7mhN75tcBxkkMh7gGU0 DFU9wK1nGhWWgMEvtTOjeZPu LATwLZDlPJNbCd8vAGOunM6b X4WeMDN5ipKpk0HbNbRDoOM7 OXTpg0MySYKzq3TfRoCtunCi AXYxBSUkSFQnjH58RCI0uPko pKleplOuVD3mVCZsenPxGTDk HBRgrL0oeLAhiD7= [facility] Work Phone: Pathologic Diagnosis b5ywkVPbQYJpbDVqKUZ wNVxh mkWgMDMomYQrW9JbfpgmINzd IX7fIJ5gjPyajWIleCOgSFOn UcMvy1zjr171yMDeg8acBIKY bvmjjVi2e3eiIFMLyO1gm9i4 qI10KOJhhN8lyWEwHIlvjsOz KBepiqPkncTuMhv7HSQ9jFso WxursCE1hBAabUU9EDyyr5Fm lBtnkAiwUZPgGBT2WTQ1VWoe b9O0DP9koTH7NJdlDKU5JZlq j2SdIM7jFKd2CDate3XmnJKx oLR4BRzpy1CdFRGigCwrGMPf fZ4zLtRxVVjphzCqihGqqmNk ZRloyrEcqnNdDXlboaLwz8Mg kwBwhPX5GXnzxsKjjUK6xGwz PNKaT0W7G335VAbhopApdmDs NvBistn1JSFqAMWdCkCyjErp DeYlQwheUPQ8b5gxtST0mDQ7 JGnjdYI2YUbyMmVcW6grWCSy lK9aC61qE2wgLKVmjRvrLJdj BJDjmPF1WIY6YRWwt8xsMTQo dUMqtIBwIrOxMKnxXee2i8bj THMfpF06rIHvodO1pHfyFJbp czIwfXtcbGlzdGxldmVsXGxl yhYnomNdVqAzcTH7BTotFsHl UwPhkPF3VDmpElJtlMX2WSkv mAZlfQR9BNpewQH9LBq2ZXr2 PJrlBJfxJpp2nKzdaBG5IZdn tF3jIJVwA14fMvZsIwYaSN24 VTfmq4CbGFTcsMtfNGKlsT0j YzIzXGxldmVsbmZjbjIzXGxl awQkofXpUUejgpQhy3UoirPq tJQ6FYvtbiCaeHR8fAolPEKs V9I0Z120JTfvyoRgrkTdTvIn trf3UDLhOYFnAqA1z2ejvHF0 bNC9YLbaxOV1XItuRsNxK4pb DVJhrE9jY29sC5elEXUcsOfb QJqtSKKstVA2NRP4UFQpf5fw ZXZlbHRleHRcJzAxXCdiNzt9 y7fwPTHegD74aRMbizY0nAie MVxmczIwfXtcbGlzdGxldmVs LDgqqxQgydNxJwVdpOY1OLpp LlSjTaWbuKS7FOljMwCmjNB4 RFwmlYRrqTM2LLhbzAE8HAz2 PKp0JJajPWrjGgi8eDfybJK4 SXzgqJ3vRFEiL96dEyCxBfIr SM53LHood0MuDWOtyDyqCDDr nG4zSrQdXSijnlFaoaNlskWy TWgrnsGbwmSpAXclxrUpn9Cg lvHfbDB1REdsstCdwUA4oJcn YEVeD9C0Q935ODedmjHqmhLk SnKppuq4BYGzTFYwVfZ1y9ag oRZ9vDR0SWiaoAI1OQudMgOf S9fkCZOuqZ0mM10lT5hmWKBn fJrdVCufWDPewKC2IPH0YKOh b5xiYUUeqXOiwUFzQiNbVWbl Zid2w8osLOQefZ67qVBlxbN6 fVxmMVxmczIwfXtcbGlzdGxl dmVsXGxldmVsbmZjMjNcbGV2 JZhcJcXqYtXxsLF7DYkwSvQj hAG6CClpvLKpzQK5VNhfjNT5 WOu4HUy4SDsvWPhaVds9fMii eKG9YLnvcV6kWRAkO32rSyHg KqSsSZ26aRyjFiaipRO7h8Da zfLqHBU7YFBgVVjjRcoiwAL3 v7KucjZhBEZarWwvrTpsAMNd QZE8IGZ1MMmbs5LfgcXkshso BNUnnA86GXfhghJ2vJqkTTIh taorAlT1QZcsBADcskjgHKk0 OCcyZPQhcSI0ZHTvsDJiL4Jl OQPqTN1drpu7ZQE2EZiqBWWy UpA7DWVzzQWrJLHazNkwZHep z585ZXJ3AbMeNSVladKyvBeo yY8zLgslatRgYOBuYCRKVcZW z2dqmzkij5ykoC9uVPytSlxf jQS7StspXXPzvSffLtLkCbxs ODBcbGluMzYwXGxzMVxpbHZs WPdiiDFkifhlJNKgGrDoW0Qk PVM1nVSwf9p5LZUveFIrs9Nv PHCtZGOnzWEzsZGfk8IuJS8w C3Nue0caEAZnLHjcmGk2ZTNw m8CnyMWatLqnAN3xeRiip6Fx QUIltA5mftViVFxrIANeMD3e dP1clLzfbH2reVYvqFIctNOm cSMborGaYf1pDFN8gS0fBBwn gA93rRX2smCtpdHxZIbtmGw5 YADfc6NztwtjWLbgdA4wbVPy jN3dmz0rMBJmdqognZNrNigj FStvbmSsiYBpTFXczwPUm98r FG58EoDTyVUaZycuWFerR4Zi NLOaTBOjktCto1BgifIyh7v5 aCBjbGluaWNhbCBpbXByZXNz sG0kND4kGZKmyT8sxHOfgYYs aGVtaWEuIFNpbWlsYXIgZmlu VMhyD8NfSKM5BUeqDWY5TVAo Q2QtbJceVTNppoVkHQFaFVGh JFgdDTWei18blDM7cG7bJJlo kKpwlM9zSPF3rP0emmQtstFr z4K7XHXjQN7oFNjvXJEfa40a yF2cnQM2NrGMaZRlDUWspxWu tpFzqianQI3dZXYkZtGeVWwy S06pseK9SeSmgYRfqF== [facility] Work Phone: Professional Interpretation Performed at: e8aceLVqQDYlfKAwWmChBAFv EOGpj6sdEVEcxFCrTeTmFdFh JeAmQosopHTeCCQaGoFjw9rm l912tIXwf7awQGXfYxT5jSXv YSSboRXlJ960SNKrVQkah8cd c8CmBYHttBCyu3N1VMBBgyqq jVy7vRaoC18xu8E9HlulX8wg MMBqVQGqS5QhID7sLQUzUki8 KXO7IZH8FVXvGVFjC0HdFA3v WJGapXFcSQe1g5cgtJzlRLCi UYP0j2kmKVpzxaIjZE2ueg9w yXq7f8hvnpLuRQIvUZSomFLH IWKlH3ZxoBycCd5bsRa3pWhf XjrkAHJ5Zwg7VV2gqj47pih1 xDwfKIPjavbeTcC9UJxaJVPq ecppOEs6MNupVTWqkID4XVBi tXUhX4VqURAfND8yhin0COS7 KHxtVFVjIyG0UUQhgCYrRQIb nEgdKIipc170AOK0ZvWvQD6w N7Flc6G0yB1ihWTlZNVtcGXp RzEcMTKyqu5vwBTfMSphe6Ih HKL2jaM1yLGdlCHvTUCxIV28 Ygsuj5JgVnwdGKO9UJSycfOh s4Toj4yzRoYoloYdC0njM6Iw PVGwBWRtYGAbTpFzagDzg6Bx c9QuqTIawAj4h2ymNZOxSYHk lSicv3oxCFT2ILRhG8C9gXUg e0jpPDyqNEDwlML6csY7RYBx uMIdV5WkbQ9uHNOzDB2fqyr6 q2bbYAF9NMpnAWLuAmE1duI8 JIFpeJMmUWCjtLonVNkjh288 PRA2XdOhFECqe8LxC7XrtPjn O75riLdfF90zYLKmoTjvmH0y uUpsgM2eTdTcTvNcLHbpZRQj XHBsYWluXGYxXGZzMjJcbGFu ZzEwMzNcaGljaFxmMVxkYmNo XDZuPOflL4ahYlKpPlOdHfAK G6OfG9WBUfNGEL9XFFjQZHgk S2WCHCWNQSYULI0WS2XVEHeB Rv0MLTUEGnwzmINpNFUpKOAD TVC1KNHfsHsyIWBpGZRfdvYS r5j4lAX0zbauV3wgzkJ7EbKd MFxwYXJ9 [facility] Work Phone: [facility] Work Phone: No Panel InformationOrdered By: Marybeth Russo on 02-18-2025 Interpretation and review of laboratory results Abnormal [facility] PHOSPHATE, INORGANICon 02-18 Phosphorous 2.7 mg/dL Normal 2.2-4.6 [facility] Comment on above: Performed By: #### X M #### [facility] (DEFAULT) [address] [place] [id number] PLATELET COUNTon 02-18-2025 Platelet mean volume (Bld) [Entitic vol] 10.3 fL Normal 8.7-12.3 [facility] Comment on above: Performed By: #### X M #### [facility] (DEFAULT) [address] [place] [id number] Platelets (Bld) [#/Vol] 186 10*3/uL Normal 146-337 [facility] Comment on above: Performed By: #### X M #### [facility] (DEFAULT) [address] [place] [address] PROTIME-INRon 02-18-2025 INR Coag (PPP) [Relative time] 1.4 {INR} High 0.9-1.1 [facility] Comment on above: Performed By: #### P TT, PTI ####[facility] (DEFAULT)[address] [place] [id number] PT Coag (PPP) [Time] 16.7 s High 11.9-14.2 [facility] Comment on above: Performed By: #### P TT, PTI ####[facility] (DEFAULT)[address] [place] [id number] PTTon 02-18-2025 aPTT Coag (Bld) [Time] 91.2 s High 24.0-34.[address] [facility] Comment on above: Order Comment: After initiation a PTT should be checked every 6 hours from time of last dose change or, if dose has not changed, 6 hours after last PTT result posted.? The frequent monitoring should occur until PTT in goal range for two consecutive lab draws without dose changes at which time PTTs may be checked no less frequently than every 12 hours.? If dose requires a change, PTT should be monitored at least every 6 hours until titration is no longer indicated, then as directed above.? If PTT above goal range refer to medication administration instructions. Performed By: #### X M #### [facility] (DEFAULT) [address] [address] aPTT Coag (Bld) [Time] 80.4 s High 24.0-34.[address] [facility] Comment on above: Order Comment: After initiation a PTT should be checked every 6 hours from time of last dose change or, if dose has not changed, 6 hours after last PTT result posted.? The frequent monitoring should occur until PTT in goal range for two consecutive lab draws without dose changes at which time PTTs may be checked no less frequently than every 12 hours.? If dose requires a change, PTT should be monitored at least every 6 hours until titration is no longer indicated, then as directed above.? If PTT above goal range refer to medication administration instructions. Performed By: #### H EMOGC #### [facility] (DEFAULT) [address] [address] aPTT Coag (Bld) [Time] 64.5 s High 24.0-34.[address] [facility] Comment on above: Order Comment: After initiation a PTT should be checked every 6 hours from time of last dose change or, if dose has not changed, 6 hours after last PTT result posted.? The frequent monitoring should occur until PTT in goal range for two consecutive lab draws without dose changes at which time PTTs may be checked no less frequently than every 12 hours.? If dose requires a change, PTT should be monitored at least every 6 hours until titration is no longer indicated, then as directed above.? If PTT above goal range refer to medication administration instructions. Performed By: #### P TT, PTI ####[facility] (DEFAULT)[address] [address] aPTT Coag (Bld) [Time] 49.3 s High 24.0-34.[address] [facility] Comment on above: Order Comment: After initiation a PTT should be checked every 6 hours from time of last dose change or, if dose has not changed, 6 hours after last PTT result posted.? The frequent monitoring should occur until PTT in goal range for two consecutive lab draws without dose changes at which time PTTs may be checked no less frequently than every 12 hours.? If dose requires a change, PTT should be monitored at least every 6 hours until titration is no longer indicated, then as directed above.? If PTT above goal range refer to medication administration instructions. Performed By: #### X M #### [facility] (DEFAULT) [address] [address] TYPE AND SCREENon 02-18-2025 ABO/RH(D) TYPE Positive Normal [facility] Comment on above: Performed By: #### X M #### [facility] (DEFAULT) [address] [address] Specimen Expiration 02/21/2025 03:43 Normal [facility] Comment on above: Performed By: #### X M #### [facility] (DEFAULT) [address] [address] CBC,PLATELETSon 02-17-2025 Hematocrit (Bld) [Volume fraction] 24.0 % Low 39.6-48.8 [facility] Comment on above: Performed By: #### X M #### [facility] (DEFAULT) [address] [address] Hemoglobin (Bld) [Mass/Vol] 7.6 g/dL Low 13.4-16.8 [facility] Comment on above: Performed By: #### X M #### [facility] (DEFAULT) [address] [address] MCV (RBC) [Entitic vol] 108.6 fL High 79.0-94.5 O [facility] Comment on above: Performed By: #### X M #### [facility] (DEFAULT) [address] [address] Mean Cell Hgb 34.4 pg High 26.1-33.3 [facility] Comment on above: Performed By: #### X M #### [facility] (DEFAULT) [address] [place] [address] Mean Cell Hgb Conc 31.7 g/dL Low 31.9-36.5 [facility] Comment on above: Performed By: #### X M #### [facility] (DEFAULT) [address] [place] [address] Platelet mean volume (Bld) [Entitic vol] 9.7 fL Normal 8.7-12.3 [facility] Comment on above: Performed By: #### X M #### [facility] (DEFAULT) [address] [place] [address] Platelets (Bld) [#/Vol] 170 10*3/uL Normal 146-337 [facility] Comment on above: Performed By: #### X M #### [facility] (DEFAULT) [address] [place] [address] RBC (Bld) [#/Vol] 2.21 10*6/uL Low 4.38-5.83 [facility] Comment on above: Performed By: #### X M #### [facility] (DEFAULT) [address] [place] [address] RBC Distribution 19.4 % High 10.9-14.3 [facility] Comment on above: Performed By: #### X M #### [facility] (DEFAULT) [address] [place] [address] WBC (Bld) [#/Vol] 8.48 10*3/uL Normal 3.73-10.10 [facility] Comment on above: Performed By: #### X M #### [facility] (DEFAULT) [address] [place] [address] CHEM 7 (LYTES,BUN,CREA,GLUC) on 02-17-2025 Anion gap [Moles/Vol] 16 mmol/L Normal 7-17 [facility] Comment on above: Performed By: #### X M #### [facility] (DEFAULT) [address] [place] [address] Chloride [Moles/Vol] 98 mmol/L Normal 98-108 [facility] Comment on above: Performed By: #### X M #### [facility] (DEFAULT) [address] [place] [address] CO2 [Moles/Vol] 27 mmol/L Normal 21-31 [facility] Comment on above: Performed By: #### X M #### [facility] (DEFAULT) [address] [place] [address] Creatinine [Mass/Vol] 5.28 mg/dL High 0.70-1.30 [facility] Comment on above: Performed By: #### X M #### [facility] (DEFAULT) [address] [place] [address] GFR/1.73 sq M.predicted among non-blacks MDRD (S/P/Bld) [Vol rate/Area] 11 mL/min/{1.73_m2} Low >=60 [facility] Comment on above: Result Comment: Repo rted eGFR is based on the CKD-EPI 2020 equation using creatinine, age, and sex. Performed By: #### X M #### [facility] (DEFAULT) [address] [place] [address] Glucose [Mass/Vol] 99 mg/dL Normal Nonfastin -179 mg/dL; Fastin-99 [facility] Comment on above: Performed By: #### X M #### [facility] (DEFAULT) [address] [place] [address] Osmolality [Osmolality] 289 mosm/kg Normal 278-305 [facility] Comment on above: Performed By: #### X M #### [facility] (DEFAULT) [address] [place] [address] Potassium [Moles/Vol] 4.1 mmol/L Normal 3.5-5.0 [facility] Comment on above: Performed By: #### X M #### [facility] (DEFAULT) [address] [place] [address] Sodium [Moles/Vol] 137 mmol/L Normal 135-145 [facility] Comment on above: Performed By: #### X M #### [facility] (DEFAULT) [address] [place] [address] Urea nitrogen [Mass/Vol] 17 mg/dL Normal 7-25 [facility] Comment on above: Performed By: #### X M #### [facility] (DEFAULT) [address] [place] [address] Urea nitrogen/Creatinine [Mass ratio] 3 mg/mg Normal [facility] Comment on above: Performed By: #### X M #### [facility] (DEFAULT) [address] [place] [address] Cardiac echo study Procedure on 02-17-2025 Ao ASC index 2.02 cm/m2 [facility] Ao peak christie 1.92 m/s [facility] Ao SOV index 1.94 cm/m2 [facility] Ao STJ index 1.98 cm/m2 [facility] V[facility] LVOT peak gradient 1 mmHg [facility] gradient 15 [facility]HG [facility] AV valve area 1.24 cm2 [facility] AV Velocity Ratio 0.27 [facility] HAJA (continuity Vmax) 1 cm2 [facility] HAJA (continuity VTI) 1.24 cm2 [facility] HAJA index (continuity Vmax) 0.52 [facility] index (continuity VTI) 0.65 [facility]2/[facility] e' pk christie 0.06 m/s [facility] Avg E/e' ratio 10.[address] [facility] Body surface area Derived from formula 1.91 m2 [facility] BP EF 69 % [facility] DI (Vmax) 0.[address] [facility] DI (VTI) 0.33 m/[address] [facility] E wave decelartion time 298.06 msec [facility] e' lateral pk christie 0.0664 m/s [facility] e' lateral pk christie 0.07 m/s [facility] e' septal pk christie 0.0482 m/s [facility] e' septal pk christie 0.05 m/s [facility] E/A ratio 1.[address] [facility] E/e' lateral ratio 8.73 [facility] E/e' septal ratio 12.03 [facility] Echo EF Estimated 55 % [facility] EF SP 2CH [address] [facility] EF SP 4CH [address] [facility] EST RAP 8 mmHg [facility] EST RVSP 55 mmHg [facility] FS 31 % [facility] IVC ostium 2.29 cm [facility] IVS 1.2 cm [facility] [place] area 4CH 32.01 cm2 [facility] [place] ESV BP (MOD) 108 mL [facility] [place] ESV BP (MOD) index 57 mL/m2 [facility] [place] ESV SP 2CH (MOD) 76 mL [facility] [place] ESV SP 4CH (MOD) 127 mL [facility] [place] EDV BP 103 mL [facility] [place] EDV SP 2CH 134 mL [facility] [place] EDV SP 4CH 78 mL [facility] [place] ESV BP 32 mL [facility] [place] ESV SP 2CH 36 mL [facility] [place] ESV SP 4CH 26 mL [facility] LV mass 234.36 g [facility] [place] Mass Index 122.7 g/m2 [facility] [place] RWT 0.[address] [facility] [place] stroke volume BP (ml) 71 mL [facility] [place] stroke volume index BP 37.17 mL/m2 [facility] LVIDD 5.73 cm [facility] LVIDS 3.98 cm [facility] LVOT area 3.76 cm2 [facility] LVOT diameter 2.19 cm [facility] LVOT peak christie 0.51 m/s [facility] LVOT peak VTI 12.66 cm [facility] LVOT stroke volume 48 cm3 [facility] LVOT stroke volume index 24.96 ml/m2 [facility] Mr max christie 5 m/s [facility] MR PISA EROA 0.15 cm2 [facility] MV mean gradient 4 mmHg [facility] MV peak gradient 12 mmHg [facility] MV pk A christie 0.35 m/s [facility] MV pk E christie 0.58 [facility] valve area by continuity eq 0.99 cm2 [facility] MV VTI 48.32 cm [facility] MVA (continuity VTI) 0.99 cm [facility] AV VTI RATIO PRE STRESS 0.[address] [facility] LV BIPLANE SYSTOLIC VOLUME INDEX 16.75 mL/m2 [facility] LV BP DIASTOLIC VOLUME INDEX 53.93 mL/m2 [facility] PW 0.84 cm [facility] RA area 4CH (MOD) 17.18 cm2 [facility] RA vol index 4CH (MOD) 26.18 mL/m2 [facility] Radius 0.6 cm [facility] Right atrium volume 4 chamber method of disks 50 mL [facility] RV Area diastolic 18 cm2 [facility] RV Area systolic 12.5 cm2 [facility] RV basal diam 3.54 cm [facility] RV Fractional area change 30.6 % [facility] RV long diam 8.08 cm [facility] RV mid diam 2.65 cm [facility] RV S' 6.95 cm/s [facility] RVOT peak gradient 1 mmHg [facility] RVOT peak christie 0.44 m/s [facility] RVOT peak VTI 11.1 cm [facility] RVOT PLAX DIAM 2.5 cm [facility] Sinus 3.71 cm [facility] STJ 3.79 cm [facility] Stroke Volume 48 cm/mL [facility] Stroke volume index [facility].81 [facility] TR pk grad 47 mmHg [facility] TR pk christie 3.41 m/s [facility] Vn Nyquist 0.33 m/s [facility] UMOUT [facility] Radiology Study observation (narrative) [facility] ECHOCARDIOGRAMon 02-17-2025 Echocardiography Mildly dilated left ventricle with mild increase in septal wall wall thickness (max 1.2 cm). Normal systolic function, LVEF 55-60%, with abnormal septal motion. Diastolic function could not be assessed d/t MVr. Normal right ventricular size with low normal systolic function. S/p mitral valve repair with an annuloplasty ring & mild residual, posteriorly directed, regurgitation (EROA 0.15 cm2). MV gradients of 12/4 mmHg obtained at HR of 70 bpm. Prosthesis in aortic position, appears well seated. Disk mobility could not be assessed. No evidence of dysfunction on Doppler assessment (Vmax 1.9, PG 15/9 mmHg, DI Vmax 0.27, DI VTI 0.33) with mild regurgitation. Mild to moderate tricuspid regurgitation with moderate RVSP elevation, estimated at 55 mmHg. Mild dilation of the visualized segments of the ascending aorta (3.8 cm). No evidence of intracardiac shunting on agitated saline or color Doppler study. Table formatting from the original result was not included. Images from the original result were not included. [facility] Facility [facility] Patient Information Patient Name Christian Amador Legal Sex Male Indication for Exam Priority: Routine Dx: Systolic heart failure, unspecified HF chronicity [I50.20 (ICD-10-CM)] Order Question Reason for Exam Followed valvular disease and check for shunting. Please schedule for Saturday 02/17 due to EGD/colonoscopy on Sunday. Interpretation Summary Result History is available. Mildly dilated left ventricle with mild increase in septal wall wall thickness (max 1.2 cm). Normal systolic function, LVEF 55-60%, with abnormal septal motion. Diastolic function could not be assessed d/t MVr. Normal right ventricular size with low normal systolic function. S/p mitral valve repair with an annuloplasty ring & mild residual, posteriorly directed, regurgitation (EROA 0.15 cm2). MV gradients of 12/4 mmHg obtained at HR of 70 bpm. Prosthesis in aortic position, appears well seated. Disk mobility could not be assessed. No evidence of dysfunction on Doppler assessment (Vmax 1.9, PG 15/9 mmHg, DI Vmax 0.27, DI VTI 0.33) with mild regurgitation. Mild to moderate tricuspid regurgitation with moderate RVSP elevation, estimated at 55 mmHg. Mild dilation of the visualized segments of the ascending aorta (3.8 cm). No evidence of intracardiac shunting on agitated saline or color Doppler study. Findings Left Ventricle Chamber size is normal. Increased wall thickness. Normal global systolic function. Regional wall motion is normal. Abnormal septal motion. The ejection fraction is 55% (+/- 5%) by visual estimate. Ejection fraction is normal (55 - 60%). Unable to assess diastolic function. Right Ventricle Chamber size is normal. Systolic function is low normal. Device wire is present. Estimated right ventricular systolic pressure is 55 mmHg. Right ventricular S' is 6.95 cm/s. Tricuspid annular plane systolic excursion is 1.81 cm. Left Atrium Chamber size is severely enlarged. Right Atrium Chamber size is mildly enlarged. A device wire is present. Septum The atrial septum is normal. No evidence of patent foramen ovale determined by color flow and saline contrast. Mitral Valve Moderate anterior and posterior leaflet thickening. Leaflet mobility is normal. A prosthetic 28 mm Brady annular ring is present. Mild regurgitation. EROA by PISA 0.15 cm2. No valve stenosis. Aortic Valve Trileaflet valve. Leaflet mobility is normal. [address] Edward mechanical valve. Trace regurgitation. No stenosis. LVOT diameter: 2.19 cm. Mean gradient: 9 mmHg. Dimensionless Index by VTI: 0.33. Dimensionless Index by VMAX: 0.27. Valve area continuity VMAX: 1.00 cm2. Valve area continuity VTI: 1.24 cm2. Stroke volume index: 24.96 ml/m2. The valve Vmax is 1.92 m/s. Tricuspid Valve Normal leaflets. Leaflet mobility is normal. Mild to moderate regurgitation directed centrally. Hepatic vein flow shows systolic reversal. No stenosis. Pulmonary artery/right heart systolic pressure is elevated, estimated at 51-55mmHg, (Consider referral to cardiology: Pulmonary Hypertension). Estimated right ventricular systolic pressure is 55 mmHg. Estimated right atrial pressure is 8.00 mmHg. Pulmonic Valve Trace regurgitation. No stenosis. Aorta Ascending aorta is mildly enlarged. SOV: 3.71 cm. STJ: 3.79 cm. Ascendin.85 cm. Pericardium No pericardial effusion. IVC/SVC The inferior vena cava is enlarged. The inferior vena cava structure is normal. Reading Providers Reading Role Read Date Rosetta Sainz MD [facility] [place], Test [employer] 02/17/2025 Left Heart Measurements LV - Systole LVIDD 5.73 cm IVS 1.2 cm LVIDS 3.98 cm PW 0.84 cm LV RWT 0.29 LV Mass Index 122.7 g/m2 LV EDV BP 103 mL LV ESV BP 32 mL BP EF 69 % LV stroke volume BP (ml) 71 mL LV stroke volume index BP 37.17 mL/m2 LV - Diastole MV pk E christie (more content not included)... Normal [facility] Laboratory - Chemistry and C hemistry - challengeOrdered By: Adrian Coronado on 02-17-2025 Anion gap [Moles/Vol] 16 mmol/L 7 - 17 mmol/L [facility] Chloride [Moles/Vol] 98 mmol/L 98 - 10 8 mmol/L [facility] CO2 [Moles/Vol] 27 mmol/L 21 - 31 mmol/L [facility] Creatinine [Mass/Vol] 5.28 mg/dL High 0.70 - 1.30 mg/dL [facility] Glucose [Mass/Vol] 99 mg/dL 70 - 179 mg/dL [facility] Osmolality Calc [Osmolality] 289 [facility] Potassium [Moles/Vol] 4.1 mmol/L 3.5 - 5.0 mmol/L [facility] Sodium [Moles/Vol] 137 mmol/L 135 - 145 mmol/L [facility] Urea nitrogen [Mass/Vol] 17 mg/dL 7 - 25 mg/dL [facility] Urea nitrogen/Creatinine [Mass ratio] 3 mg/mg [facility] Laboratory - Chemistry and C hemistry - challengeon 02-17-2025 Magnesium [Mass/Vol] 1.7 mg/dL 1.6 - 2 .6 mg/dL [facility] Phosphate [Mass/Vol] 2.9 mg/dL 2.2 - 4 .6 mg/dL [facility] Laboratory - CoagulationOrde red By: Ekta Cano on 02-17-2025 aPTT Coag (PPP) [Time] Critically high [facility] Laboratory - Coagulationon 0 02-17-2025 aPTT Coag (PPP) [Time] 109.2 s High [facility] aPTT Coag (PPP) [Time] 93.6 s High [facility] Laboratory - Hematology and Cell countson 02-17-2025 Erythrocyte distribution width (RBC) [Ratio] 19.4 % High 10.9 - 14.3 % [facility] Hematocrit (Bld) [Volume fraction] 24 % Low 39.6 - 48.8 % [facility] Hemoglobin (Bld) [Mass/Vol] 7.6 g/dL Low 13.4 - 16.8 g/dL [facility] MCH (RBC) [Entitic mass] 34.4 pg High 26.1 - 33.3 pg [facility] MCHC (RBC) [Mass/Vol] 31.7 g/dL Low 31.9 - 36.5 g/dL [facility] MCV (RBC) [Entitic vol] 108.6 fL High 79.0 - 94.5 fL [facility] Platelet mean volume (Bld) [Entitic vol] 9.7 fL 8.7 - 12.3 fL [facility] Platelets (Bld) [#/Vol] 170 10*3/uL 146 - 337 K/uL [facility] RBC (Bld) [#/Vol] 2.21 10*6/uL Low [facility] WBC (Bld) [#/Vol] 8.48 10*3/uL 3.73 - 10. 10 K/uL [facility] MAGNESIUMon 02-17-2025 Magnesium [Mass/Vol] 1.7 mg/dL Normal 1.6-2.6 [facility] Comment on above: Performed By: #### X M #### [facility] (DEFAULT) [address] [place] [id number] No Panel InformationOrdered By: Ekta Cano on 02-17-2025 Interpretation and review of laboratory results Abnormal [facility] No Panel Informationon 02-17 Interpretation and review of laboratory results Abnormal [facility] Interpretation and review of laboratory results Normal [facility] Interpretation and review of laboratory results Abnormal [facility] Interpretation and review of laboratory results Abnormal [facility] No Panel InformationOrdered By: Adrian Coronado on 02-17-2025 eGFR, CKD-EPI, Male 11 Low - PINF [facility] Interpretation and review of laboratory results Abnormal [facility] PHOSPHATE, INORGANICon 02-17 Phosphorous 2.9 mg/dL Normal 2.2-4.6 [facility] Comment on above: Performed By: #### X M #### [facility] (DEFAULT) [address] [place] [address] PTTon 02-17-2025 aPTT Coag (Bld) [Time] s Critically high 24.0-34. 3 [facility] Comment on above: Order Comment: After initiation a PTT should be checked every 6 hours from time of last dose change or, if dose has not changed, 6 hours after last PTT result posted.? The frequent monitoring should occur until PTT in goal range for two consecutive lab draws without dose changes at which time PTTs may be checked no less frequently than every 12 hours.? If dose requires a change, PTT should be monitored at least every 6 hours until titration is no longer indicated, then as directed above.? If PTT above goal range refer to medication administration instructions. Result Comment: Spec imen integrity checked. Repeated and verified Performed By: #### P TT #### [facility] (DEFAULT) [address] [place] [phone] aPTT Coag (Bld) [Time] 109.2 s High 24.0-34.[address] [facility] Comment on above: Order Comment: After initiation a PTT should be checked every 6 hours from time of last dose change or, if dose has not changed, 6 hours after last PTT result posted.? The frequent monitoring should occur until PTT in goal range for two consecutive lab draws without dose changes at which time PTTs may be checked no less frequently than every 12 hours.? If dose requires a change, PTT should be monitored at least every 6 hours until titration is no longer indicated, then as directed above.? If PTT above goal range refer to medication administration instructions. Performed By: #### X M #### [facility] (DEFAULT) [address] [address] aPTT Coag (Bld) [Time] 93.6 s High 24.0-34.[address] [facility] Comment on above: Order Comment: After initiation a PTT should be checked every 6 hours from time of last dose change or, if dose has not changed, 6 hours after last PTT result posted.? The frequent monitoring should occur until PTT in goal range for two consecutive lab draws without dose changes at which time PTTs may be checked no less frequently than every 12 hours.? If dose requires a change, PTT should be monitored at least every 6 hours until titration is no longer indicated, then as directed above.? If PTT above goal range refer to medication administration instructions. Performed By: #### X M #### [facility] (DEFAULT) [address] [place] [id number] Bacteria identified Respirat ory culture Nom (Unsp spec)Ordered By: Momo Fofana on 02-16-2025 Bacteria identified Cx Nom (Unsp spec) Growth [facility] Bacteria identified Cx Nom (Unsp spec) Light Growth Common oropharyngeal microbes [facility] Microscopic observation Other stain Nom (Unsp spec) Neutrophils, Light [facility] Microscopic observation Other stain Nom (Unsp spec) Contaminating bacteria and epithelials present [facility] Microscopic observation Other stain Nom (Unsp spec) Specimen is of optimum quality [facility] CBC,PLATELETSon 02-16-2025 Hematocrit (Bld) [Volume fraction] 25.8 % Low 39.6-48.8 [facility] Comment on above: Performed By: #### X M #### [facility] (DEFAULT) [address] [place] [id number] Hemoglobin (Bld) [Mass/Vol] 7.8 g/dL Low 13.4-16.8 [facility] Comment on above: Performed By: #### X M #### [facility] (DEFAULT) [address] [place] [phone] MCV (RBC) [Entitic vol] 110.3 fL High 79.0-94.5 O [facility] Comment on above: Performed By: #### X M #### [facility] (DEFAULT) [address] [place] [address] Mean Cell Hgb 33.3 pg Normal 26.1-33.3 [facility] Comment on above: Performed By: #### X M #### [facility] (DEFAULT) [address] [place] [address] Mean Cell Hgb Conc 30.2 g/dL Low 31.9-36.5 [facility] Comment on above: Performed By: #### X M #### [facility] (DEFAULT) [address] [place] [phone] Platelet mean volume (Bld) [Entitic vol] 10.0 fL Normal 8.7-12.3 [facility] Comment on above: Performed By: #### X M #### [facility] (DEFAULT) [address] [place] [phone] Platelets (Bld) [#/Vol] 181 10*3/uL Normal 146-337 [facility] Comment on above: Performed By: #### X M #### [facility] (DEFAULT) [address] [place] [address] RBC (Bld) [#/Vol] 2.34 10*6/uL Low 4.38-5.83 [facility] Comment on above: Performed By: #### X M #### [facility] (DEFAULT) [address] [place] [address] RBC Distribution 19.2 % High 10.9-14.3 [facility] Comment on above: Performed By: #### X M #### [facility] (DEFAULT) [address] [place] [phone] WBC (Bld) [#/Vol] 16.30 10*3/uL High 3.73-10.10 [facility] Comment on above: Performed By: #### X M #### [facility] (DEFAULT) [address] [place] [phone] CHEM 7 (LYTES,BUN,CREA,GLUC) on 02-16-2025 Anion gap [Moles/Vol] 23 mmol/L High 7-17 [facility] Comment on above: Performed By: #### X M #### [facility] (DEFAULT) [address] [place] [phone] Chloride [Moles/Vol] 97 mmol/L Low 98-108 [facility] Comment on above: Performed By: #### X M #### [facility] (DEFAULT) [address] [place] [address] CO2 [Moles/Vol] 22 mmol/L Normal 21-31 [facility] Comment on above: Performed By: #### X M #### [facility] (DEFAULT) [address] [place] [address] Creatinine [Mass/Vol] 8.21 mg/dL High 0.70-1.30 [facility] Comment on above: Performed By: #### X M #### [facility] (DEFAULT) [address] [place] [address] GFR/1.73 sq M.predicted among non-blacks MDRD (S/P/Bld) [Vol rate/Area] 6 mL/min/{1.73_m2} Low >=60 [facility] Comment on above: Result Comment: Repo rted eGFR is based on the CKD-EPI 2020 equation using creatinine, age, and sex. Performed By: #### X M #### [facility] (DEFAULT) [address] [place] [address] Glucose [Mass/Vol] 84 mg/dL Normal Nonfastin -179 mg/dL; Fastin-99 [facility] Comment on above: Performed By: #### X M #### [facility] (DEFAULT) [address] [place] [address] Osmolality [Osmolality] 293 mosm/kg Normal 278-305 [facility] Comment on above: Performed By: #### X M #### [facility] (DEFAULT) [address] [place] [address] Potassium [Moles/Vol] 4.7 mmol/L Normal 3.5-5.0 [facility] Comment on above: Performed By: #### X M #### [facility] (DEFAULT) [address] [place] [address]2827 Sodium [Moles/Vol] 137 mmol/L Normal 135-145 [facility] Comment on above: Performed By: #### X M #### [facility] (DEFAULT) [address] [place] [address] 15874 Urea nitrogen [Mass/Vol] 29 mg/dL High 7-25 [facility] Comment on above: Performed By: #### X M #### [facility] (DEFAULT) [address] [place] [address] Urea nitrogen/Creatinine [Mass ratio] 4 mg/mg Normal [facility] Comment on above: Performed By: #### X M #### [facility] (DEFAULT) [address] [place] [phone] Laboratory - Chemistry and C hemistry - challengeOrdered By: Shikha Mayo on 02-16-2025 Anion gap [Moles/Vol] 23 mmol/L High 7 - 17 mmol/L [facility] Chloride [Moles/Vol] 97 mmol/L Low 98 - 10 8 mmol/L [facility] CO2 [Moles/Vol] 22 mmol/L 21 - 31 mmol/L [facility] Creatinine [Mass/Vol] 8.21 mg/dL High 0.70 - 1.30 mg/dL [facility] Glucose [Mass/Vol] 84 mg/dL 70 - 179 mg/dL [facility] Osmolality Calc [Osmolality] 293 [facility] Potassium [Moles/Vol] 4.7 mmol/L 3.5 - 5.0 mmol/L [facility] Sodium [Moles/Vol] 137 mmol/L 135 - 145 mmol/L [facility] Urea nitrogen [Mass/Vol] 29 mg/dL High 7 - 25 mg/dL [facility] Urea nitrogen/Creatinine [Mass ratio] 4 mg/mg [facility] Laboratory - CoagulationOrde red By: Ernestine Sharpe on 02-16-2025 aPTT Coag (PPP) [Time] 86.8 s High [facility] Laboratory - Coagulationon 0 02-16-2025 aPTT Coag (PPP) [Time] 46 s High [facility] INR Coag (Bld) [Relative time] 1.5 {INR} High 0.9 - 1.[address] [facility] PT Coag (PPP) [Time] 17.9 s High [facility] Laboratory - Hematology and Cell countson 02-16-2025 Erythrocyte distribution width (RBC) [Ratio] 19.2 % High 10.9 - 14.3 % [facility] Hematocrit (Bld) [Volume fraction] 25.8 % Low 39.6 - 48.8 % [facility] Hemoglobin (Bld) [Mass/Vol] 7.8 g/dL Low 13.4 - 16.8 g/dL [facility] MCH (RBC) [Entitic mass] 33.3 pg 26.1 - 33.3 pg [facility] MCHC (RBC) [Mass/Vol] 30.2 g/dL Low 31.9 - 36.5 g/dL [facility] MCV (RBC) [Entitic vol] 110.3 fL High 79.0 - 94.5 fL [facility] Platelet mean volume (Bld) [Entitic vol] 10 fL 8.7 - 12.3 fL [facility] Platelets (Bld) [#/Vol] 181 10*3/uL 146 - 337 K/uL [facility] RBC (Bld) [#/Vol] 2.34 10*6/uL Low [facility] WBC (Bld) [#/Vol] 16.3 10*3/uL High 3.73 - 10. 10 K/uL [facility] No Panel InformationOrdered By: Ernestine Sharpe on 02-16-2025 Interpretation and review of laboratory results Abnormal [facility] No Panel Informationon 02-16 [facility] Body surface area Derived from formula 1.91 m2 [facility] LAB, [facility] Radiology Study observation (narrative) [facility] Interpretation and review of laboratory results Abnormal [facility] Interpretation and review of laboratory results Abnormal [facility] No Panel InformationOrdered By: Shikha Mayo on 02-16-2025 eGFR, CKD-EPI, Male 6 Low - PINF [facility] Interpretation and review of laboratory results Abnormal [facility] PT,INR,PTTon 02-16-2025 aPTT Coag (Bld) [Time] 46.0 s High 24.0-34.[address] [facility] Comment on above: Performed By: #### X M #### [facility] (DEFAULT) [address] [place] [id number] INR Coag (PPP) [Relative time] 1.5 {INR} High 0.9-1.1 [facility] Comment on above: Performed By: #### X M #### [facility] (DEFAULT) [address] [address] PT Coag (PPP) [Time] 17.9 s High 11.9-14.2 [facility] Comment on above: Performed By: #### X M #### [facility] (DEFAULT) [address] [place] [address] [id number] PTTon 02-16-2025 aPTT Coag (Bld) [Time] 86.8 s High 24.0-34.[address] [facility] Comment on above: Order Comment: After initiation a PTT should be checked every 6 hours from time of last dose change or, if dose has not changed, 6 hours after last PTT result posted.? The frequent monitoring should occur until PTT in goal range for two consecutive lab draws without dose changes at which time PTTs may be checked no less frequently than every 12 hours.? If dose requires a change, PTT should be monitored at least every 6 hours until titration is no longer indicated, then as directed above.? If PTT above goal range refer to medication administration instructions. Performed By: #### X M #### [facility] (DEFAULT) [address] [address] SURG PATH REQUESTon 02-17-20 Case Report Normal [facility] Comment on above: Result Comment: Surg ical Pathology Report Case: [id number] Authorizing Provider: Gen Oh MD Collected: 02/16/2025 09:28 AM Ordering Location: [facility] Received: 02/16/2025 11:19 AM Pathologist: ROSE Lawson Specimen: COLON TISSUE OR BIOPSY, sigmoid colon bxs; r/o ischemia, r/o malignancy Performed By: #### S URGP #### [facility] (DEFAULT) [address] [place] [address] Clinical History R/o ischemia. R/o malignancy. Medical History: Atrial tachycardia. Coronary artery disease. Hypertension, benign. Obstructive sleep apnea. S/p radiofrequency ablation operative for arrhythmia. Anemia. Essential hypertension, benign. Arthritis. Hematoma. Lymphoma. Hematochezia. Hypothyroidism. Arrhythmia. Hyperlipidemia. Atrial flutter. S/p aortic valve replacement. Leukocytosis. Benign prostatic hyperplasia. Gout. Pacemaker. Kidney stones. Congestive heart failure, unspecified. Cardiomyopathy. Septic shock. Rheumatic heart disease. Liver disease. Transient ischemic attack. Gastroesophageal reflux disease. Seizures. Vascular disease. Normal [facility] Comment on above: Performed By: #### S URGP #### [facility] (DEFAULT) [address] [place] [address] Gross Description Normal [facility] Comment on above: Result Comment: The specimen is received in one properly labeled container with the patient's name and accession number. A. The specimen is designated sigmoid colon bxs; r/o ischemia, r/o malignancy and consists of one soft gayle portion of tissue which is 0.4 cm in greatest dimension. TE 1 Lab Use Only: JobID [id number] Grosser for this case was: Chris Wilson Performed By: #### S URGP #### [facility] (DEFAULT) [address] [place] [address] Microscopic Description Normal [facility] Comment on above: Result Comment: A fl croscopic examination was performed. All controls show appropriate reactivity. All immunohistochemistry (IHC), in situ hybridization (DONNA), and histochemical tests were developed by and are performed at the [facility] Clinical Laboratory, Histology and IHC Lab, [address] [place] [address], [place] [address]. All Immunofluorescent (IF) tests were developed by and are performed at the [facility], Renal Division, [address] [place] [address]. All tests reported here, except for PD-L1, have not been cleared by or approved by the [place] Food and Drug Administration (FDA). The laboratory is regulated under CLIA as qualified to perform high-complexity testing. The tests are used for clinical purposes. They should not be regarded as investigational or for research. Performed By: #### S URGP #### [facility] (DEFAULT) [address] [place] [address] Pathologic Diagnosis Normal [facility] Comment on above: Result Comment: A. C olon, sigmoid, biopsy: Extensive mucosal and submucosal necrosis, negative for malignancy, see comment. Immunohistochemical stains for Cytomegalovirus is negative for viral inclusions. Comment: The findings are consistent with clinical impression of colonic ischemia. Similar findings (at least focally) can be seen in association with infections and severe medication injury. There is no evidence of malignancy. at 1116 EDT Performed By: #### S URGP #### [facility] (DEFAULT) [address] [place] [address] Professional Interpretation Performed at: [facility] Comment on above: Result Comment: [facility] For Immediate Release to Patient's [facility]? Yes [address] [place] [address] Performed By: #### S URGP #### [facility] (DEFAULT) [address] [place] [id number] CBC,PLATELETSon 02-15-2025 Hematocrit (Bld) [Volume fraction] 25.0 % Low 39.6-48.8 [facility] Comment on above: Performed By: #### X M #### [facility] (DEFAULT) [address] [address] Hemoglobin (Bld) [Mass/Vol] 7.6 g/dL Low 13.4-16.8 [facility] Comment on above: Performed By: #### X M #### [facility] (DEFAULT) [address] [place] [address] MCV (RBC) [Entitic vol] 111.1 fL High 79.0-94.5 O [facility] Comment on above: Performed By: #### X M #### [facility] (DEFAULT) [address] [place] [address] 16294 Mean Cell Hgb 33.8 pg High 26.1-33.3 [facility] Comment on above: Performed By: #### X M #### [facility] (DEFAULT) [address] [place] [address] 9[address] Mean Cell Hgb Conc 30.4 g/dL Low 31.9-36.5 [facility] Comment on above: Performed By: #### X M #### [facility] (DEFAULT) [address] [place] [address]134 Platelet mean volume (Bld) [Entitic vol] 9.6 fL Normal 8.7-12.3 [facility] Comment on above: Performed By: #### X M #### [facility] (DEFAULT) [address] [place] [address] Platelets (Bld) [#/Vol] 158 10*3/uL Normal 146-337 [facility] Comment on above: Performed By: #### X M #### [facility] (DEFAULT) [address] [place] [address]233 RBC (Bld) [#/Vol] 2.25 10*6/uL Low 4.38-5.83 [facility] Comment on above: Performed By: #### X M #### [facility] (DEFAULT) [address] [place] [address] 10671 RBC Distribution 19.3 % High 10.9-14.3 [facility] Comment on above: Performed By: #### X M #### [facility] (DEFAULT) [address] [place] [address]167 WBC (Bld) [#/Vol] 8.41 10*3/uL Normal 3.73-10.10 [facility] Comment on above: Performed By: #### X M #### [facility] (DEFAULT) [address] [place] [address] CHEM 7 (LYTES,BUN,CREA,GLUC) on 02-15-2025 Anion gap [Moles/Vol] 16 mmol/L Normal 7-17 [facility] Comment on above: Performed By: #### X M #### [facility] (DEFAULT) [address] [place] [address]451 Chloride [Moles/Vol] 99 mmol/L Normal 98-108 [facility] Comment on above: Performed By: #### X M #### [facility] (DEFAULT) [address] [place] [address] 27768 CO2 [Moles/Vol] 26 mmol/L Normal 21-31 [facility] Comment on above: Performed By: #### X M #### [facility] (DEFAULT) [address] [place] [address] Creatinine [Mass/Vol] 7.08 mg/dL High 0.70-1.30 [facility] Comment on above: Performed By: #### X M #### [facility] (DEFAULT) [address] [place] [address] GFR/1.73 sq M.predicted among non-blacks MDRD (S/P/Bld) [Vol rate/Area] 7 mL/min/{1.73_m2} Low >=60 [facility] Comment on above: Result Comment: Repo rted eGFR is based on the CKD-EPI 2020 equation using creatinine, age, and sex. Performed By: #### X M #### [facility] (DEFAULT) [address] [place] [address]367 Glucose [Mass/Vol] 93 mg/dL Normal Nonfastin -179 mg/dL; Fastin-99 [facility] Comment on above: Performed By: #### X M #### [facility] (DEFAULT) [address] [place] [address] Osmolality [Osmolality] 292 mosm/kg Normal 278-305 [facility] Comment on above: Performed By: #### X M #### [facility] (DEFAULT) [address] [place] [address] Potassium [Moles/Vol] 3.4 mmol/L Low 3.5-5.0 [facility] on above: Performed By: #### X M #### [facility] (DEFAULT) [address] [place] [address] Sodium [Moles/Vol] 138 mmol/L Normal 135-145 [facility] Comment on above: Performed By: #### X M #### [facility] (DEFAULT) [address] [place] [address] Urea nitrogen [Mass/Vol] 24 mg/dL Normal 7-25 [facility] Comment on above: Performed By: #### X M #### [facility] (DEFAULT) [address] [place] [address] 065[address] Urea nitrogen/Creatinine [Mass ratio] 3 mg/mg Normal [facility] Comment on above: Performed By: #### X M #### [facility] (DEFAULT) [address] [place] [address] Laboratory - Chemistry and C hemistry - challengeOrdered By: Soto Layton on 02-15-2025 Anion gap [Moles/Vol] 16 mmol/L 7 - 17 mmol/L [facility] Chloride [Moles/Vol] 99 mmol/L 98 - 10 8 mmol/L [facility] CO2 [Moles/Vol] 26 mmol/L 21 - 31 mmol/L [facility] Creatinine [Mass/Vol] 7.08 mg/dL High 0.70 - 1.30 mg/dL [facility] Glucose [Mass/Vol] 93 mg/dL 70 - 179 mg/dL [facility] Osmolality Calc [Osmolality] 292 [facility] Potassium [Moles/Vol] 3.4 mmol/L Low 3.5 - 5.0 mmol/L [facility] Sodium [Moles/Vol] 138 mmol/L 135 - 145 mmol/L [facility] Urea nitrogen [Mass/Vol] 24 mg/dL 7 - 25 mg/dL [facility] Urea nitrogen/Creatinine [Mass ratio] 3 mg/mg [facility] Laboratory - Coagulationon 0 02-15-2025 aPTT Coag (PPP) [Time] 77.2 s High OS U [facility] aPTT Coag (PPP) [Time] 93.3 s High OS [facility] INR Coag (Bld) [Relative time] 1.6 {INR} High 0.9 - 1.1 [facility] PT Coag (PPP) [Time] 19.2 s [facility] Cell countson 02-15-2025 Platelet mean volume (Bld) [Entitic vol] 10 fL 8.7 - 12.3 fL [facility] Platelets (Bld) [#/Vol] 181 10*3/uL 146 - 337 K/uL [facility] Erythrocyte distribution width (RBC) [Ratio] 19.3 % High 10.9 - 14.3 % [facility] Hematocrit (Bld) [Volume fraction] 25 % Low 39.6 - 48.8 % [facility] Hemoglobin (Bld) [Mass/Vol] 7.6 g/dL Low 13.4 - 16.8 g/dL [facility] MCH (RBC) [Entitic mass] 33.8 pg High 26.1 - 33.3 pg [facility] MCHC (RBC) [Mass/Vol] 30.4 g/dL Low 31.9 - 36.5 g/dL [facility] MCV (RBC) [Entitic vol] 111.1 fL High 79.0 - 94.5 fL [facility] Platelet mean volume (Bld) [Entitic vol] 9.6 fL 8.7 - 12.3 fL [facility] Platelets (Bld) [#/Vol] 158 10*3/uL 146 - 337 K/uL [facility] RBC (Bld) [#/Vol] 2.25 10*6/uL Low [facility] WBC (Bld) [#/Vol] 8.41 10*3/uL 3.73 - 10. 10 K/uL [facility] No Panel Informationon 02-15 Interpretation and review of laboratory results Abnormal [facility] Interpretation and review of laboratory results Normal [facility] ABO/RH(D) TYPE Positive [facility] Specimen Expiration 02/18/2025 06:12 [facility] Interpretation and review of laboratory results Abnormal [facility] Interpretation and review of laboratory results Abnormal [facility] Interpretation and review of laboratory results Abnormal [facility] No Panel InformationOrdered By: Soto Layton on 02-15-2025 eGFR, CKD-EPI, Male 7 Low - PINF [facility] Interpretation and review of laboratory results Abnormal [facility] PLATELET COUNTon 02-15-2025 Platelet mean volume (Bld) [Entitic vol] 10.0 fL Normal 8.7-12.3 [facility] Comment on above: Performed By: #### S URGP #### [facility] (DEFAULT) [address] [place] [address] Platelets (Bld) [#/Vol] 181 10*3/uL Normal 146-337 [facility] Comment on above: Performed By: #### S URGP #### [facility] (DEFAULT) [address] [place] [address] PROTIME-INRon 02-15-2025 INR Coag (PPP) [Relative time] 1.6 {INR} High 0.9-1.1 [facility] Comment on above: Order Comment: Ongoi ng: Daily until INR is therapeutic for 2 consecutive days, then every 2 days for 14 days or until discharged. Performed By: #### P TI, PTT ####[facility] (DEFAULT)[address] [place] [address] PT Coag (PPP) [Time] 19.2 s High 11.9-14.2 [facility] Comment on above: Order Comment: Ongoi ng: Daily until INR is therapeutic for 2 consecutive days, then every 2 days for 14 days or until discharged. Performed By: #### P TI, PTT ####[facility] (DEFAULT)[address] [place] [address] PTTon 02-15-2025 aPTT Coag (Bld) [Time] 77.2 s High 24.0-34.[address] [facility] Comment on above: Order Comment: After initiation a PTT should be checked every 6 hours from time of last dose change or, if dose has not changed, 6 hours after last PTT result posted.? The frequent monitoring should occur until PTT in goal range for two consecutive lab draws without dose changes at which time PTTs may be checked no less frequently than every 12 hours.? If dose requires a change, PTT should be monitored at least every 6 hours until titration is no longer indicated, then as directed above.? If PTT above goal range refer to medication administration instructions. Performed By: #### X M #### [facility] (DEFAULT) [address] [place] [address] aPTT Coag (Bld) [Time] 93.3 s High 24.0-34.[address] [facility] Comment on above: Order Comment: After initiation a PTT should be checked every 6 hours from time of last dose change or, if dose has not changed, 6 hours after last PTT result posted.? The frequent monitoring should occur until PTT in goal range for two consecutive lab draws without dose changes at which time PTTs may be checked no less frequently than every 12 hours.? If dose requires a change, PTT should be monitored at least every 6 hours until titration is no longer indicated, then as directed above.? If PTT above goal range refer to medication administration instructions. Performed By: #### P TI, PTT ####[facility] (DEFAULT)[address] [place] [address] TYPE AND SCREENon 02-15-2025 ABO/RH(D) TYPE Positive Normal [facility] Comment on above: Performed By: #### X M #### [facility] (DEFAULT) [address] [place] [address] Specimen Expiration 02/18/2025 06:12 Normal [facility] Comment on above: Performed By: #### X M #### [facility] (DEFAULT) [address] [place] [address] CALCIUMon 02-14-2025 Calcium [Mass/Vol] 8.0 mg/dL Low 8.6-10.5 [facility] Comment on above: Performed By: #### X M #### [facility] (DEFAULT) [address] [place] [address]42 CBC,PLATELETSon 02-14-2025 Hematocrit (Bld) [Volume fraction] 24.3 % Low 39.6-48.8 [facility] Comment on above: Performed By: #### X M #### [facility] (DEFAULT) [address] [place] [address] 23442 Hemoglobin (Bld) [Mass/Vol] 7.4 g/dL Low 13.4-16.8 [facility] Comment on above: Performed By: #### X M #### [facility] (DEFAULT) [address] [place] [address] 38753 MCV (RBC) [Entitic vol] 110.5 fL High 79.0-94.5 [facility] Comment on above: Performed By: #### X M #### [facility] (DEFAULT) [address] [place] [address] 91617 Mean Cell Hgb 33.6 pg High 26.1-33.3 [facility] Comment on above: Performed By: #### X M #### [facility] (DEFAULT) [address] [place] [address] 14893 Mean Cell Hgb Conc 30.5 g/dL Low 31.9-36.5 [facility] Comment on above: Performed By: #### X M #### [facility] (DEFAULT) [address] [place] [address] 24420 Platelet mean volume (Bld) [Entitic vol] 9.7 fL Normal 8.7-12.3 [facility] Comment on above: Performed By: #### X M #### [facility] (DEFAULT) [address] [place] [address] 09687 Platelets (Bld) [#/Vol] 157 10*3/uL Normal 146-337 [facility] Comment on above: Performed By: #### X M #### [facility] (DEFAULT) [address] [address] RBC (Bld) [#/Vol] 2.20 10*6/uL Low 4.38-5.83 [facility] Comment on above: Performed By: #### X M #### [facility] (DEFAULT) [address] [place] [address] 64022 RBC Distribution 18.6 % High 10.9-14.3 [facility] Comment on above: Performed By: #### X M #### [facility] (DEFAULT) [address] [place] [address] 44143 WBC (Bld) [#/Vol] 8.48 10*3/uL Normal 3.73-10.10 [facility] Comment on above: Performed By: #### X M #### [facility] (DEFAULT) [address] [address] CHEM 7 (LYTES,BUN,CREA,GLUC) on 02-14-2025 Anion gap [Moles/Vol] 16 mmol/L Normal 7-17 [facility] Comment on above: Performed By: #### X M #### [facility] (DEFAULT) [address] [place] [address] 35120 Chloride [Moles/Vol] 98 mmol/L Normal 98-108 [facility] Comment on above: Performed By: #### X M #### [facility] (DEFAULT) [address] [place] [address] 56700 CO2 [Moles/Vol] 26 mmol/L Normal 21-31 [facility] Comment on above: Performed By: #### X M #### [facility] (DEFAULT) [address] [place] [address] 35640 Creatinine [Mass/Vol] 4.06 mg/dL High 0.70-1.30 [facility] Comment on above: Performed By: #### X M #### [facility] (DEFAULT) [address] [place] [address] 91754 GFR/1.73 sq M.predicted among non-blacks MDRD (S/P/Bld) [Vol rate/Area] 15 mL/min/{1.73_m2} Low >=60 [facility] Comment on above: Result Comment: Repo rted eGFR is based on the CKD-EPI 2020 equation using creatinine, age, and sex. Performed By: #### X M #### [facility] (DEFAULT) [address] [place] [address] 82631 Glucose [Mass/Vol] 100 mg/dL Normal Nonfastin -179 mg/dL; Fastin-99 [facility] Comment on above: Performed By: #### X M #### [facility] (DEFAULT) [address] [place] [address] 19453 Osmolality [Osmolality] 285 mosm/kg Normal 278-305 [facility] Comment on above: Performed By: #### X M #### [facility] (DEFAULT) [address] [place] [address] 55664 Potassium [Moles/Vol] 3.6 mmol/L Normal 3.5-5.0 [facility] Comment on above: Performed By: #### X M #### [facility] (DEFAULT) [address] [place] [address] 64100 Sodium [Moles/Vol] 136 mmol/L Normal 135-145 [facility] Comment on above: Performed By: #### X M #### [facility] (DEFAULT) [address] [place] [address] 82287 Urea nitrogen [Mass/Vol] 13 mg/dL Normal 7-25 [facility] Comment on above: Performed By: #### X M #### [facility] (DEFAULT) [address] [place] [address] 40987 Urea nitrogen/Creatinine [Mass ratio] 3 mg/mg Normal [facility] Comment on above: Performed By: #### X M #### [facility] (DEFAULT) [address] [place] [address] 74539 FOLATE, SERUMon 02-14-2025 Folate 38.32 ng/mL Normal >5.38 [facility] Comment on above: Performed By: #### X M #### [facility] (DEFAULT) [address] [place] [address]9650 HEPATIC FUNCTION PANELon Albumin [Mass/Vol] 3.4 g/dL Low 3.5-5.0 [facility] Comment on above: Performed By: #### X M #### [facility] (DEFAULT) [address] [place] [address] 47487 ALP [Catalytic activity/Vol] 274 U/L High 32-126 [facility] Comment on above: Performed By: #### X M #### [facility] (DEFAULT) [address] [place] [address] 79102 ALT [Catalytic activity/Vol] 15 U/L Normal 10-52 [facility] Comment on above: Performed By: #### X M #### [facility] (DEFAULT) [address] [place] [address] 62721 AST [Catalytic activity/Vol] 41 U/L High 10-39 [facility] Comment on above: Performed By: #### X M #### [facility] (DEFAULT) [address] [place] [address] 36723 Bilirubin [Mass/Vol] 0.7 mg/dL Normal <1.5 [facility] Comment on above: Performed By: #### X M #### [facility] (DEFAULT) [address] [place] [address] 59682 Bilirubin.indirect [Mass/Vol] 0.3 mg/dL High <0.3 [facility] Comment on above: Performed By: #### X M #### [facility] (DEFAULT) [address] [place] [address] Protein [Mass/Vol] 7.0 g/dL Normal 6.4-8.3 [facility] Comment on above: Performed By: #### X M #### [facility] (DEFAULT) [address] [address] IMMUNOCOMPROMISED RESPIRATOR Y PANELon 02-14-2025 Adenovirus - Pcr Not detected Normal Not Detected [facility] Comment on above: Order Comment: Viral transport media (red screw top with red liquid media) or BAL - Collection must be done while wearing N-95 mask, eye protection, gown and gloves.\X09\Results should be used in conjunction with other clinical and laboratory findings. This result does not rule out co-infections with pathogens that are not screened for by the Respiratory Panel(RP). This RP assay was performed using a Film Array multiplex nucleic acid assay. Performed By: #### X M #### [facility] (DEFAULT) [address] [address] Bordetella Parapertussis Not detected Normal Not Detected [facility] Comment on above: Order Comment: Viral transport media (red screw top with red liquid media) or BAL - Collection must be done while wearing N-95 mask, eye protection, gown and gloves.\X09\Results should be used in conjunction with other clinical and laboratory findings. This result does not rule out co-infections with pathogens that are not screened for by the Respiratory Panel(RP). This RP assay was performed using a Film Array multiplex nucleic acid assay. Performed By: #### X M #### [facility] (DEFAULT) [address] [address] Bordetella Pertussis Not detected Normal Not Detected [facility] Comment on above: Order Comment: Viral transport media (red screw top with red liquid media) or BAL - Collection must be done while wearing N-95 mask, eye protection, gown and gloves.\X09\Results should be used in conjunction with other clinical and laboratory findings. This result does not rule out co-infections with pathogens that are not screened for by the Respiratory Panel(RP). This RP assay was performed using a Film Array multiplex nucleic acid assay. Performed By: #### X M #### [facility] (DEFAULT) [address] [address] Chlamydia Pneumoniae Not detected Normal Not Detected [facility] Comment on above: Order Comment: Viral transport media (red screw top with red liquid media) or BAL - Collection must be done while wearing N-95 mask, eye protection, gown and gloves.\X09\Results should be used in conjunction with other clinical and laboratory findings. This result does not rule out co-infections with pathogens that are not screened for by the Respiratory Panel(RP). This RP assay was performed using a Film Array multiplex nucleic acid assay. Performed By: #### X M #### [facility] (DEFAULT) [address] [address] Coronavirus 229E Not detected Normal Not Detected [facility] Comment on above: Order Comment: Viral transport media (red screw top with red liquid media) or BAL - Collection must be done while wearing N-95 mask, eye protection, gown and gloves.\X09\Results should be used in conjunction with other clinical and laboratory findings. This result does not rule out co-infections with pathogens that are not screened for by the Respiratory Panel(RP). This RP assay was performed using a Film Array multiplex nucleic acid assay. Performed By: #### X M #### [facility] (DEFAULT) [address] [address] Coronavirus Hku1 Not detected Normal Not Detected [facility] Comment on above: Order Comment: Viral transport media (red screw top with red liquid media) or BAL - Collection must be done while wearing N-95 mask, eye protection, gown and gloves.\X09\Results should be used in conjunction with other clinical and laboratory findings. This result does not rule out co-infections with pathogens that are not screened for by the Respiratory Panel(RP). This RP assay was performed using a Film Array multiplex nucleic acid assay. Performed By: #### X M #### [facility] (DEFAULT) [address] [address] Coronavirus Nl63 Not detected Normal Not Detected [facility] Comment on above: Order Comment: Viral transport media (red screw top with red liquid media) or BAL - Collection must be done while wearing N-95 mask, eye protection, gown and gloves.\X09\Results should be used in conjunction with other clinical and laboratory findings. This result does not rule out co-infections with pathogens that are not screened for by the Respiratory Panel(RP). This RP assay was performed using a Film Array multiplex nucleic acid assay. Performed By: #### X M #### [facility] (DEFAULT) [address] [address] Coronavirus Oc43 Not detected Normal Not Detected [facility] Comment on above: Order Comment: Viral transport media (red screw top with red liquid media) or BAL - Collection must be done while wearing N-95 mask, eye protection, gown and gloves.\X09\Results should be used in conjunction with other clinical and laboratory findings. This result does not rule out co-infections with pathogens that are not screened for by the Respiratory Panel(RP). This RP assay was performed using a Film Array multiplex nucleic acid assay. Performed By: #### X M #### [facility] (DEFAULT) [address] [address] Influenza A - Pcr Not detected Normal Not Detected [facility] Comment on above: Order Comment: Viral transport media (red screw top with red liquid media) or BAL - Collection must be done while wearing N-95 mask, eye protection, gown and gloves.\X09\Results should be used in conjunction with other clinical and laboratory findings. This result does not rule out co-infections with pathogens that are not screened for by the Respiratory Panel(RP). This RP assay was performed using a Film Array multiplex nucleic acid assay. Performed By: #### X M #### [facility] (DEFAULT) [address] [address] Influenza B - Pcr Not detected Normal Not Detected [facility] Comment on above: Order Comment: Viral transport media (red screw top with red liquid media) or BAL - Collection must be done while wearing N-95 mask, eye protection, gown and gloves.\X09\Results should be used in conjunction with other clinical and laboratory findings. This result does not rule out co-infections with pathogens that are not screened for by the Respiratory Panel(RP). This RP assay was performed using a Film Array multiplex nucleic acid assay. Performed By: #### X M #### [facility] (DEFAULT) [address] [address] Metapneumovirus - Pcr Detected Abnormal Not Detected [facility] Comment on above: Order Comment: Viral transport media (red screw top with red liquid media) or BAL - Collection must be done while wearing N-95 mask, eye protection, gown and gloves.\X09\Results should be used in conjunction with other clinical and laboratory findings. This result does not rule out co-infections with pathogens that are not screened for by the Respiratory Panel(RP). This RP assay was performed using a Film Array multiplex nucleic acid assay. Result Comment: DROP LET PLUS CONTACT ISOLATION IS REQUIRED for INPATIENTS with human metapneumovirus. Performed By: #### X M #### [facility] (DEFAULT) [address] [address] Mycoplasma Pneumoniae Not detected Normal Not Detected [facility] Comment on above: Order Comment: Viral transport media (red screw top with red liquid media) or BAL - Collection must be done while wearing N-95 mask, eye protection, gown and gloves.\X09\Results should be used in conjunction with other clinical and laboratory findings. This result does not rule out co-infections with pathogens that are not screened for by the Respiratory Panel(RP). This RP assay was performed using a Film Array multiplex nucleic acid assay. Performed By: #### X M #### [facility] (DEFAULT) [address] [address] Parainfluenza 1 - Pcr Not detected Normal Not Detected [facility] Comment on above: Order Comment: Viral transport media (red screw top with red liquid media) or BAL - Collection must be done while wearing N-95 mask, eye protection, gown and gloves.\X09\Results should be used in conjunction with other clinical and laboratory findings. This result does not rule out co-infections with pathogens that are not screened for by the Respiratory Panel(RP). This RP assay was performed using a Film Array multiplex nucleic acid assay. Performed By: #### X M #### [facility] (DEFAULT) [address] [place] [address] Parainfluenza 2 - Pcr Not detected Normal Not Detected [facility] Comment on above: Order Comment: Viral transport media (red screw top with red liquid media) or BAL - Collection must be done while wearing N-95 mask, eye protection, gown and gloves.\X09\Results should be used in conjunction with other clinical and laboratory findings. This result does not rule out co-infections with pathogens that are not screened for by the Respiratory Panel(RP). This RP assay was performed using a Film Array multiplex nucleic acid assay. Performed By: #### X M #### [facility] (DEFAULT) [address] [address] Parainfluenza 3 - Pcr Not detected Normal Not Detected [facility] Comment on above: Order Comment: Viral transport media (red screw top with red liquid media) or BAL - Collection must be done while wearing N-95 mask, eye protection, gown and gloves.\X09\Results should be used in conjunction with other clinical and laboratory findings. This result does not rule out co-infections with pathogens that are not screened for by the Respiratory Panel(RP). This RP assay was performed using a Film Array multiplex nucleic acid assay. Performed By: #### X M #### [facility] (DEFAULT) [address] [address] Parainfluenza 4 - Pcr Not detected Normal Not Detected [facility] Comment on above: Order Comment: Viral transport media (red screw top with red liquid media) or BAL - Collection must be done while wearing N-95 mask, eye protection, gown and gloves.\X09\Results should be used in conjunction with other clinical and laboratory findings. This result does not rule out co-infections with pathogens that are not screened for by the Respiratory Panel(RP). This RP assay was performed using a Film Array multiplex nucleic acid assay. Performed By: #### X M #### [facility] (DEFAULT) [address] [place] [address] Rhinovirus/Enterovirus - PCR Not detected Normal Not Detected [facility] Comment on above: Order Comment: Viral transport media (red screw top with red liquid media) or BAL - Collection must be done while wearing N-95 mask, eye protection, gown and gloves.\X09\Results should be used in conjunction with other clinical and laboratory findings. This result does not rule out co-infections with pathogens that are not screened for by the Respiratory Panel(RP). This RP assay was performed using a Film Array multiplex nucleic acid assay. Performed By: #### X M #### [facility] (DEFAULT) [address] [place] [address] Rsv - Pcr Not detected Normal Not Detected [facility] Comment on above: Order Comment: Viral transport media (red screw top with red liquid media) or BAL - Collection must be done while wearing N-95 mask, eye protection, gown and gloves.\X09\Results should be used in conjunction with other clinical and laboratory findings. This result does not rule out co-infections with pathogens that are not screened for by the Respiratory Panel(RP). This RP assay was performed using a Film Array multiplex nucleic acid assay. Performed By: #### X M #### [facility] (DEFAULT) [address] [place] [address] SARS-CoV-2 (COVID-19) RNA RENETTA+probe Ql (Unsp spec) Not detected Normal NOT DETECTED [facility] Comment on above: Order Comment: Viral transport media (red screw top with red liquid media) or BAL - Collection must be done while wearing N-95 mask, eye protection, gown and gloves.\X09\Results should be used in conjunction with other clinical and laboratory findings. This result does not rule out co-infections with pathogens that are not screened for by the Respiratory Panel(RP). This RP assay was performed using a Film Array multiplex nucleic acid assay. Performed By: #### X M #### [facility] (DEFAULT) [address] [place] [address] LOWER RESPIRATORY CULTURE, B ACTERIALon 02-14-2025 Bacteria identified Cx Nom (Unsp spec) Normal [facility] Comment on above: Result Comment: Grow th 4471 Light Growth Common oropharyngeal microbes Performed By: #### X M #### [facility] (DEFAULT) [address] [place] [address] Microscopic observation Gram stain Nom (Unsp spec) Normal [facility] Comment on above: Result Comment: Neut rophils, Light Contaminating bacteria and epithelials present Specimen is of optimum quality Performed By: #### X M #### [facility] (DEFAULT) [address] [place] [address] Laboratory - Chemistry and C hemistry - challengeOrdered By: Ganesh Carson on 02-14-2025 Folate [Mass/Vol] 38.32 ng/mL 5.38 - PIN F ng/mL [facility] Laboratory - Chemistry and C hemistry - challengeon 02-14-2025 Cobalamin (Vitamin B12) [Mass/Vol] 1962 pg/mL High 211 - 911 pg/mL [facility] Calcium [Mass/Vol] 8 mg/dL Low 8.6 - 10. 5 mg/dL [facility] Albumin [Mass/Vol] 3.4 g/dL Low 3.5 - 5.0 g/dL [facility] ALP [Catalytic activity/Vol] 274 U/L High 32 - 126 U/L [facility] ALT [Catalytic activity/Vol] 15 U/L 10 - 52 U/L [facility] AST [Catalytic activity/Vol] 41 U/L High 10 - 39 U/L [facility] Bilirubin [Mass/Vol] 0.7 mg/dL NINF - 1.5 mg/dL [facility] Bilirubin.direct [Mass/Vol] 0.3 mg/dL High NINF - 0.3 mg/dL [facility] Magnesium [Mass/Vol] 1.7 mg/dL 1.6 - 2 .6 mg/dL [facility] Phosphate [Mass/Vol] 2.1 mg/dL Low 2.2 - 4 .6 mg/dL [facility] Protein [Mass/Vol] 7 g/dL 6.4 - 8.3 g/dL [facility] Laboratory - Chemistry and C hemistry - challengeOrdered By: Jay Chin on 02-14-2025 Anion gap [Moles/Vol] 16 mmol/L 7 - 17 mmol/L [facility] Chloride [Moles/Vol] 98 mmol/L 98 - 10 8 mmol/L [facility] CO2 [Moles/Vol] 26 mmol/L 21 - 31 mmol/L [facility] Creatinine [Mass/Vol] 4.06 mg/dL High 0.70 - 1.30 mg/dL [facility] Glucose [Mass/Vol] 100 mg/dL 70 - 179 mg/dL [facility] Osmolality Calc [Osmolality] 285 [facility] Potassium [Moles/Vol] 3.6 mmol/L 3.5 - 5.0 mmol/L [facility] Sodium [Moles/Vol] 136 mmol/L 135 - 145 mmol/L [facility] Urea nitrogen [Mass/Vol] 13 mg/dL 7 - 25 mg/dL [facility] Urea nitrogen/Creatinine [Mass ratio] 3 mg/mg [facility] Laboratory - Coagulationon 0 02-14-2025 aPTT Coag (PPP) [Time] 80.1 s High [facility] aPTT Coag (PPP) [Time] 94.8 s High OS [facility] aPTT Coag (PPP) [Time] 98.3 s High OS [facility] Laboratory - CoagulationOrde red By: Simone Tong on 02-14-2025 aPTT Coag (PPP) [Time] 99.9 s High [facility] INR Coag (Bld) [Relative time] 1.7 {INR} High 0.9 - 1.1 [facility] PT Coag (PPP) [Time] 19.5 s High [facility] Laboratory - Hematology and Cell countson 02-14-2025 Erythrocyte distribution width (RBC) [Ratio] 18.6 % High 10.9 - 14.3 % [facility] Hematocrit (Bld) [Volume fraction] 24.3 % Low 39.6 - 48.8 % [facility] Hemoglobin (Bld) [Mass/Vol] 7.4 g/dL Low 13.4 - 16.8 g/dL [facility] MCH (RBC) [Entitic mass] 33.6 pg High 26.1 - 33.3 pg [facility] MCHC (RBC) [Mass/Vol] 30.5 g/dL Low 31.9 - 36.5 g/dL [facility] MCV (RBC) [Entitic vol] 110.5 fL High 79.0 - 94.5 fL [facility] Platelet mean volume (Bld) [Entitic vol] 9.7 fL 8.7 - 12.3 fL [facility] Platelets (Bld) [#/Vol] 157 10*3/uL 146 - 337 K/uL [facility] RBC (Bld) [#/Vol] 2.2 10*6/uL Low [facility] WBC (Bld) [#/Vol] 8.48 10*3/uL 3.73 - 10. 10 K/uL [facility] MAGNESIUMon 02-14-2025 Magnesium [Mass/Vol] 1.7 mg/dL Normal 1.6-2.6 [facility] Comment on above: Performed By: #### X M #### [facility] (DEFAULT) [address] [place] [address] No Panel Informationon 02-14 Interpretation [facility] review of [facility] of [facility] results Abnormal [facility] Interpretation and review of laboratory results Abnormal [facility] Interpretation and review of laboratory results Abnormal [facility] Interpretation and review of laboratory results Abnormal [facility] Interpretation and review of laboratory results Normal [facility] Interpretation and review of laboratory results Abnormal [facility] Interpretation and review of laboratory results Abnormal [facility] No Panel InformationOrdered By: Ganesh Carson on 02-14-2025 Interpretation and review of laboratory results Normal [facility] No Panel InformationOrdered By: Unassigned Pacs on 02-14-2025 [facility] Work Phone: No Panel InformationOrdered By: Jay Chin on 02-14-2025 eGFR, CKD-EPI, Male 15 Low - PINF [facility] Interpretation and review of laboratory results Abnormal [facility] No Panel InformationOrdered By: Simone Tong on 02-14-2025 Interpretation and review of laboratory results Abnormal [facility] PHOSPHATE, INORGANICon 02-14 Phosphorous 2.1 mg/dL Low 2.2-4.6 [facility] Comment on above: Performed By: #### X M #### [facility] (DEFAULT) [address] [place] [id number] PT,INR,PTTon 02-14-2025 aPTT Coag (Bld) [Time] 99.9 s High 24.0-34.[address] [facility] Comment on above: Performed By: #### X M #### [facility] (DEFAULT) [address] [place] [address] INR Coag (PPP) [Relative time] 1.7 {INR} High 0.9-1.1 [facility] Comment on above: Performed By: #### X M #### [facility] (DEFAULT) [address] [place] [id number] PT Coag (PPP) [Time] 19.5 s High 11.9-14.2 [facility] Comment on above: Performed By: #### X M #### [facility] (DEFAULT) [address] [place] [address] PTTon 02-14-2025 aPTT Coag (Bld) [Time] 80.1 s High 24.0-34.[address] [facility] Comment on above: Order Comment: After initiation a PTT should be checked every 6 hours from time of last dose change or, if dose has not changed, 6 hours after last PTT result posted.? The frequent monitoring should occur until PTT in goal range for two consecutive lab draws without dose changes at which time PTTs may be checked no less frequently than every 12 hours.? If dose requires a change, PTT should be monitored at least every 6 hours until titration is no longer indicated, then as directed above.? If PTT above goal range refer to medication administration instructions. Performed By: #### X M #### [facility] (DEFAULT) [address] [place] [address] aPTT Coag (Bld) [Time] 94.8 s High 24.0-34.[address] [facility] Comment on above: Order Comment: After initiation a PTT should be checked every 6 hours from time of last dose change or, if dose has not changed, 6 hours after last PTT result posted.? The frequent monitoring should occur until PTT in goal range for two consecutive lab draws without dose changes at which time PTTs may be checked no less frequently than every 12 hours.? If dose requires a change, PTT should be monitored at least every 6 hours until titration is no longer indicated, then as directed above.? If PTT above goal range refer to medication administration instructions. Performed By: #### H EMO #### [facility] (DEFAULT) [address] [place] [address] aPTT Coag (Bld) [Time] 98.3 s High 24.0-34.[address] [facility] Comment on above: Order Comment: After initiation a PTT should be checked every 6 hours from time of last dose change or, if dose has not changed, 6 hours after last PTT result posted.? The frequent monitoring should occur until PTT in goal range for two consecutive lab draws without dose changes at which time PTTs may be checked no less frequently than every 12 hours.? If dose requires a change, PTT should be monitored at least every 6 hours until titration is no longer indicated, then as directed above.? If PTT above goal range refer to medication administration instructions. Performed By: #### X M #### [facility] (DEFAULT) [address] [place] [address] Respiratory virus DNA+RNA NA A+probe Nom (Unsp spec)Ordered By: Jairon Jiménez on 02-14-2025 Adenovirus DNA RENETTA+probe Nom (Unsp spec) Not detected Not Detected [facility] B. parapertussis DNA RENETTA+probe Ql (Unsp spec) Not detected Not Detected [facility] B. pertussis DNA RENETTA+probe Ql (Unsp spec) Not detected Not Detected [facility] C. pneumoniae DNA RENETTA+probe Ql (Unsp spec) Not detected Not Detected [facility] FLUAV RNA RENETTA+probe Ql (Unsp spec) Not detected Not Detected [facility] FLUBV RNA RENETTA+probe Ql (Unsp spec) Not detected Not Detected [facility] HCoV 229E RNA RENETTA+non-probe Ql (Nph) Not detected Not Detected [facility] HCoV HKU1 RNA RENETTA+non-probe Ql (Nph) Not detected Not Detected [facility] HCoV NL63 RNA RENETTA+non-probe Ql (Nph) Not detected Not Detected [facility] HCoV OC43 RNA RENETTA+non-probe Ql (Nph) Not detected Not Detected [facility] hMPV A RNA RENETTA+probe Ql (Unsp spec) Detected Abnormal Not Detected [facility] Interpretation and review of laboratory results Abnormal [facility] M. pneumoniae DNA RENETTA+probe Ql (Unsp spec) Not detected Not Detected [facility] Parainfluenza virus 1 RNA RENETTA+probe Ql (Unsp spec) Not detected Not Detected [facility] Parainfluenza virus 2 RNA RENETTA+probe Ql (Unsp spec) Not detected Not Detected [facility] Parainfluenza virus 3 RNA RENETTA+probe Ql (Unsp spec) Not detected Not Detected [facility] Parainfluenza virus 4 RNA RENETTA+probe Ql (Unsp spec) Not detected Not Detected [facility] Rhinovirus+Enterovirus RNA RENETTA+probe Ql (Unsp spec) Not detected Not Detected [facility] RSV RNA RENETTA+probe Ql (Unsp spec) Not detected Not Detected [facility] SARS-CoV-2 (COVID-19) RNA RENETTA+probe Ql (Unsp spec) Not detected NOT DETECTED [facility] VITAMIN B12on 02-14-2025 Cobalamin (Vitamin B12) [Mass/Vol] 1962 pg/mL High 211-911 [facility] Comment on above: Result Comment: Test ing of Methylmalonic Acid and Intrinsic Factor Blocking Antibody are recommended if clinical suspicion for pernicious anemia due to B12 deficiency is high for patients with intermediate B12 levels (211 to 400 pg/mL) to rule out spurious heterophile antibodies. Performed By: #### X M #### [facility] (DEFAULT) [address] [address] CALCIUMon 02-13-2025 Calcium [Mass/Vol] 7.5 mg/dL Low 8.6-10.5 [facility] Comment on above: Performed By: #### X M #### [facility] (DEFAULT) [address] [place] [phone] CBC AND ELECTRONIC DIFFon Abs Baso Auto < Normal 0.00-0.09 [facility] Comment on above: Performed By: #### X M #### [facility] (DEFAULT) [address] [place] [address]91 Basophils/100 WBC (Bld) 0.4 % Normal [facility] Comment on above: Performed By: #### X M #### [facility] (DEFAULT) [address] [place] [address] DIFF STATUS Electronic Differential Normal [facility] Comment on above: Performed By: #### X M #### [facility] (DEFAULT) [address] [place] [address] Eosinophils (Bld) [#/Vol] 0.14 10*3/uL Normal 0.00-0.48 [facility] Comment on above: Performed By: #### X M #### [facility] (DEFAULT) [address] [address] Eosinophils/100 WBC (Bld) 1.8 % Normal [facility] Comment on above: Performed By: #### X M #### [facility] (DEFAULT) [address] [place] [address] Hematocrit (Bld) [Volume fraction] 24.4 % Low 39.6-48.8 [facility] Comment on above: Performed By: #### X M #### [facility] (DEFAULT) [address] [address] Hemoglobin (Bld) [Mass/Vol] 7.3 g/dL Low 13.4-16.8 [facility] Comment on above: Performed By: #### X M #### [facility] (DEFAULT) [address] [address] Immature Grans % 0.8 % Normal [facility] Comment on above: Performed By: #### X M #### [facility] (DEFAULT) [address] [address] Immature Grans Absolute 0.06 K/uL Normal <=0.07 [facility] Comment on above: Performed By: #### X M #### [facility] (DEFAULT) [address] [place] [address] Lymphocytes (Bld) [#/Vol] 1.34 10*3/uL Normal 0.83-3.57 [facility] Comment on above: Performed By: #### X M #### [facility] (DEFAULT) [address] [address] Lymphocytes/100 WBC (Bld) 16.9 % Normal [facility] Comment on above: Performed By: #### X M #### [facility] (DEFAULT) [address] [address] MCV (RBC) [Entitic vol] 110.4 fL High 79.0-94.5 [facility] Comment on above: Performed By: #### X M #### [facility] (DEFAULT) [address] [address] Mean Cell Hgb 33.0 pg Normal 26.1-33.3 [facility] Comment on above: Performed By: #### X M #### [facility] (DEFAULT) [address] [address] Mean Cell Hgb Conc 29.9 g/dL Low 31.9-36.5 [facility] Comment on above: Performed By: #### X M #### [facility] (DEFAULT) [address] [address] Monocytes (Bld) [#/Vol] 0.90 10*3/uL Normal 0.24-0.93 [facility] Comment on above: Performed By: #### X M #### [facility] (DEFAULT) [address] [address] Monocytes/100 WBC (Bld) 11.3 % Normal [facility] Comment on above: Performed By: #### X M #### [facility] (DEFAULT) [address] [address] Nucleated RBC 0.0 /100 WBC Normal <=0.2 [facility] Comment on above: Performed By: #### X M #### [facility] (DEFAULT) [address] [place] [address] Platelet mean volume (Bld) [Entitic vol] 9.5 fL Normal 8.7-12.3 [facility] Comment on above: Performed By: #### X M #### [facility] (DEFAULT) [address] [place] [address] Platelets (Bld) [#/Vol] 139 10*3/uL Low 146-337 [facility] Comment on above: Performed By: #### X M #### [facility] (DEFAULT) [address] [place] [address]852 RBC (Bld) [#/Vol] 2.21 10*6/uL Low 4.38-5.83 [facility] Comment on above: Performed By: #### X M #### [facility] (DEFAULT) [address] [place] [address] RBC Distribution 18.6 % High 10.9-14.3 [facility] Comment on above: Performed By: #### X M #### [facility] (DEFAULT) [address] [place] [address] Segs + Bands Auto 68.8 % Normal [facility] Comment on above: Performed By: #### X M #### [facility] (DEFAULT) [address] [place] [address] Segs + Bands,Absolute Auto 5.46 K/uL Normal 1.57-6.19 [facility] Comment on above: Performed By: #### X M #### [facility] (DEFAULT) [address] [place] [address] WBC (Bld) [#/Vol] 7.93 10*3/uL Normal 3.73-10.10 [facility] Comment on above: Performed By: #### X M #### [facility] (DEFAULT) [address] [place] [address] CBC,PLATELETSon 02-13-2025 Hematocrit (Bld) [Volume fraction] 24.7 % Low 39.6-48.8 [facility] Comment on above: Order Comment: Basel ine: within 24 hours prior to treatment initiationOngoing: as needed for monitoring Performed By: #### X M #### [facility] (DEFAULT) [address] [address] Hemoglobin (Bld) [Mass/Vol] 7.6 g/dL Low 13.4-16.8 [facility] Comment on above: Order Comment: Basel ine: within 24 hours prior to treatment initiationOngoing: as needed for monitoring Performed By: #### X M #### [facility] (DEFAULT) [address] [address] MCV (RBC) [Entitic vol] 109.8 fL High 79.0-94.5 [facility] Comment on above: Order Comment: Basel ine: within 24 hours prior to treatment initiationOngoing: as needed for monitoring Performed By: #### X M #### [facility] (DEFAULT) [address] [address] Mean Cell Hgb 33.8 pg High 26.1-33.3 [facility] Comment on above: Order Comment: Basel ine: within 24 hours prior to treatment initiationOngoing: as needed for monitoring Performed By: #### X M #### [facility] (DEFAULT) [address] [address] Mean Cell Hgb Conc 30.8 g/dL Low 31.9-36.5 [facility] Comment on above: Order Comment: Basel ine: within 24 hours prior to treatment initiationOngoing: as needed for monitoring Performed By: #### X M #### [facility] (DEFAULT) [address] [address] Platelet mean volume (Bld) [Entitic vol] 10.1 fL Normal 8.7-12.3 [facility] Comment on above: Order Comment: Basel ine: within 24 hours prior to treatment initiationOngoing: as needed for monitoring Performed By: #### X M #### [facility] (DEFAULT) [address] [address] Platelets (Bld) [#/Vol] 156 10*3/uL Normal 146-337 [facility] Comment on above: Order Comment: Basel ine: within 24 hours prior to treatment initiationOngoing: as needed for monitoring Performed By: #### X M #### [facility] (DEFAULT) [address] [address] RBC (Bld) [#/Vol] 2.25 10*6/uL Low 4.38-5.83 [facility] Comment on above: Order Comment: Basel ine: within 24 hours prior to treatment initiationOngoing: as needed for monitoring Performed By: #### X M #### [facility] (DEFAULT) [address] [address] RBC Distribution 18.9 % High 10.9-14.3 [facility] Comment on above: Order Comment: Basel ine: within 24 hours prior to treatment initiationOngoing: as needed for monitoring Performed By: #### X M #### [facility] (DEFAULT) [address] [address] WBC (Bld) [#/Vol] 8.91 10*3/uL Normal 3.73-10.10 [facility] Comment on above: Order Comment: Basel ine: within 24 hours prior to treatment initiationOngoing: as needed for monitoring Performed By: #### X M #### [facility] (DEFAULT) [address] [address] CHEM 7 (LYTES,BUN,CREA,GLUC) on 02-13-2025 Anion gap [Moles/Vol] 16 mmol/L Normal 7-17 [facility] Comment on above: Performed By: #### X M #### [facility] (DEFAULT) [address] [address] Chloride [Moles/Vol] 97 mmol/L Low 98-108 [facility] Comment on above: Performed By: #### X M #### [facility] (DEFAULT) [address] [place] [address] CO2 [Moles/Vol] 31 mmol/L Normal 21-31 [facility] Comment on above: Performed By: #### X M #### [facility] (DEFAULT) [address] [place] [address] Creatinine [Mass/Vol] 7.16 mg/dL High 0.70-1.30 [facility] Comment on above: Performed By: #### X M #### [facility] (DEFAULT) [address] [place] [address] GFR/1.73 sq M.predicted among non-blacks MDRD (S/P/Bld) [Vol rate/Area] 7 mL/min/{1.73_m2} Low >=60 [facility] Comment on above: Result Comment: Repo rted eGFR is based on the CKD-EPI 2020 equation using creatinine, age, and sex. Performed By: #### X M #### [facility] (DEFAULT) [address] [place] [address] Glucose [Mass/Vol] 87 mg/dL Normal Nonfastin -179 mg/dL; Fastin-99 [facility] Comment on above: Performed By: #### X M #### [facility] (DEFAULT) [address] [place] [address] Osmolality [Osmolality] 298 mosm/kg Normal 278-305 [facility] Comment on above: Performed By: #### X M #### [facility] (DEFAULT) [address] [place] [address] Potassium [Moles/Vol] 3.6 mmol/L Normal 3.5-5.0 [facility] Comment on above: Performed By: #### X M #### [facility] (DEFAULT) [address] [place] [address] Sodium [Moles/Vol] 140 mmol/L Normal 135-145 [facility] Comment on above: Performed By: #### X M #### [facility] (DEFAULT) [address] [place] [address] Urea nitrogen [Mass/Vol] 33 mg/dL High 7-25 [facility] Comment on above: Performed By: #### X M #### [facility] (DEFAULT) [address] [place] [address] Urea nitrogen/Creatinine [Mass ratio] 5 mg/mg Normal [facility] Comment on above: Performed By: #### X M #### [facility] (DEFAULT) [address] [place] [address] CT CHEST (INTERPRETATION - O UTSIDE IMAGE)on 02-13-2025 CT CHEST (INTERPRETATION - OUTSIDE IMAGE) EXAM: CT CHEST (INTERPRETATION - OUTSIDE IMAGE), 02/13/2025 12:03 PM DATE- OUTSIDE STUDY PERFORMED: February 12, 2025 COMPARISON: February 06, 2023 CLINICAL INDICATIONS: Reason for Exam:->cough, SOB DISCLAIMER: This is an interpretation of images obtained at an outside imaging facility. This report refers only to the anatomic area or body part in the study description, as requested. Image quality is good but a tobacco drying machine operator view was not provided STUDY DESCRIPTION: CT Chest without IV contrast TECHNIQUE: Standard CT of the chest was performed without IV contrast. FINDINGS: Lungs and Pleura: Left pleural effusion with surrounding pleural thickening. Underlying compressive volume loss. Bilateral patches of groundglass attenuation, suggestive of superimposed pneumonia. Tracheobronchial tree: Patent centrally. Mediastinum/Jovanna: Scattered prominent mediastinal lymph nodes, likely reactive. Axilla and Supraclavicular Region: Scattered supraclavicular nodes. Normal thyroid. Cardiovascular: Normal heart size. Dense atherosclerotic calcifications of the aorta and coronary arteries. Surgical changes of prior coronary artery bypass grafting. Right subclavian pacemaker with lead tips in the right ventricle and in a coronary vein over the left ventricle. The origin of the chest is centered slightly into the IVC, unchanged. Mildly enlarged main pulmonary artery, similar to the previous study. Aortic valve replacement. Upper Abdomen: Prior cholecystectomy. Vascular calcifications. Left adrenal gland thickening, similar to the previous study. Bones and Soft Tissue: Midline sternal wires. Degenerative change of the thoracic spine. Additional Findings: Right IJ line tip in good position near the cavoatrial junction. IMPRESSION: 1. Left pleural effusion with dense pleural thickening suggestive of empyema. 2. Asymmetric patches of groundglass attenuation bilaterally, suggestive of pneumonia. Normal [facility] CT Cheston 02-13-2025 RADIOLOGY RADIOLOGY [facility] Radiology Study observation (narrative) [facility] CT ChestOrdered By: Kaden Patterson on 02-13-2025 [facility] Work Phone: Chronic hepatitis differenti ation between hepatitis B and C virus panelon 02-13-2025 HBV core IgG+IgM Ql (S) Negative Negative [facility] HBV surface Ab IA Ql (S) Negative Negative [facility] HCV Ab Ql (S) Negative Negative [facility] Interpretation and review of laboratory results Normal [facility] DIALYSIS HEP PANEL-CHRONICon 02-13-2025 Hep B Core Ab,Total (IgG+IgM) Negative Normal Negative [facility] Comment on above: Performed By: #### X M #### [facility] (DEFAULT) [address] [address] Hep B Surface Ab Negative Normal Negative [facility] Comment on above: Performed By: #### X M #### [facility] (DEFAULT) [address] [place] [address] Hepatitis C Antibody Negative Normal Negative [facility] Comment on above: Performed By: #### X M #### [facility] (DEFAULT) [address] [address] Electrocardiogram reportOrde red By: Niels Flores on 02-13-2025 EKG study [facility] Work Phone: HEP B SURFACE AG-Marylou 01-18 Hepatitis B Surface Ag-Stat Negative Normal Negative [facility] Comment on above: Performed By: #### X M #### [facility] (DEFAULT) [address] [place] [address] HEPATIC FUNCTION PANELon Albumin [Mass/Vol] 3.3 g/dL Low 3.5-5.0 [facility] Comment on above: Performed By: #### X M #### [facility] (DEFAULT) [address] [place] [address] ALP [Catalytic activity/Vol] 265 U/L High 32-126 [facility] Comment on above: Performed By: #### X M #### [facility] (DEFAULT) [address] [place] [address] ALT [Catalytic activity/Vol] 19 U/L Normal 10-52 [facility] Comment on above: Performed By: #### X M #### [facility] (DEFAULT) [address] [place] [address] AST [Catalytic activity/Vol] 40 U/L High 10-39 [facility] Comment on above: Performed By: #### X M #### [facility] (DEFAULT) [address] [address] Bilirubin [Mass/Vol] 0.7 mg/dL Normal <1.5 [facility] Comment on above: Performed By: #### X M #### [facility] (DEFAULT) [address] [address] Bilirubin.indirect [Mass/Vol] 0.3 mg/dL High <0.3 [facility] Comment on above: Performed By: #### X M #### [facility] (DEFAULT) [address] [place] [address] Protein [Mass/Vol] 6.8 g/dL Normal 6.4-8.3 [facility] Comment on above: Performed By: #### X M #### [facility] (DEFAULT) [address] [place] [address] LACTATE DEHYDROGENASEon 01-18 LD Total 301 U/L High 100-190 [facility] Comment on above: Performed By: #### P TT #### [facility] (DEFAULT) [address] [place] [address] Laboratory - Chemistry and C hemistry - challengeon 02-13-2025 LDH Lactate to pyruvate reaction [Catalytic activity/Vol] 301 U/L High 100 - 190 U/L [facility] Protein [Mass/Vol] 7 g/dL 6.4 - 8.3 g/dL [facility] Albumin [Mass/Vol] 3.3 g/dL Low 3.5 - 5.0 g/dL [facility] ALP [Catalytic activity/Vol] 265 U/L High 32 - 126 U/L [facility] ALT [Catalytic activity/Vol] 19 U/L 10 - 52 U/L [facility] Anion gap [Moles/Vol] 16 mmol/L 7 - 17 mmol/L [facility] AST [Catalytic activity/Vol] 40 U/L High 10 - 39 U/L [facility] Bilirubin [Mass/Vol] 0.7 mg/dL NINF - 1.5 mg/dL [facility] Bilirubin.direct [Mass/Vol] 0.3 mg/dL High NINF - 0.3 mg/dL [facility] Calcium [Mass/Vol] 7.5 mg/dL Low 8.6 - 10. 5 mg/dL [facility] Chloride [Moles/Vol] 97 mmol/L Low 98 - 10 8 mmol/L [facility] CO2 [Moles/Vol] 31 mmol/L 21 - 31 mmol/L [facility] Creatinine [Mass/Vol] 7.16 mg/dL High 0.70 - 1.30 mg/dL [facility] Glucose [Mass/Vol] 87 mg/dL 70 - 179 mg/dL [facility] Magnesium [Mass/Vol] 1.8 mg/dL 1.6 - 2 .6 mg/dL [facility] Osmolality Calc [Osmolality] [facility] [Mass/Vol] 2.9 mg/dL 2.2 - 4 .6 mg/dL [facility] Potassium [Moles/Vol] 3.6 mmol/L 3.5 - 5.0 mmol/L [facility] Protein [Mass/Vol] 6.8 g/dL 6.4 - 8.3 g/dL [facility] Sodium [Moles/Vol] 140 mmol/L 135 - 145 mmol/L [facility] Urea nitrogen [Mass/Vol] 33 mg/dL High 7 - 25 mg/dL [facility] Urea nitrogen/Creatinine [Mass ratio] 5 mg/mg [facility] Laboratory - Coagulationon 0 02-13-2025 aPTT Coag (PPP) [Time] 60.5 s High [facility] INR Coag (Bld) [Relative time] 1.7 {INR} High 0.9 - 1.1 [facility] PT Coag (PPP) [Time] 20 s High [facility] Laboratory - Hematology and Cell countson 02-13-2025 Erythrocyte distribution width (RBC) [Ratio] 18.9 % High 10.9 - 14.3 % [facility] Hematocrit (Bld) [Volume fraction] 24.7 % Low 39.6 - 48.8 % [facility] Hemoglobin (Bld) [Mass/Vol] 7.6 g/dL Low 13.4 - 16.8 g/dL [facility] MCH (RBC) [Entitic mass] 33.8 pg High 26.1 - 33.3 pg [facility] MCHC (RBC) [Mass/Vol] 30.8 g/dL Low 31.9 - 36.5 g/dL [facility] MCV (RBC) [Entitic vol] 109.8 fL High 79.0 - 94.5 fL [facility] Platelet mean volume (Bld) [Entitic vol] 10.1 fL 8.7 - 12.3 fL [facility] Platelets (Bld) [#/Vol] 156 10*3/uL 146 - 337 K/uL [facility] RBC (Bld) [#/Vol] 2.25 10*6/uL Low [facility] WBC (Bld) [#/Vol] 8.91 10*3/uL 3.73 - 10. 10 K/uL [facility] Basophils (Bld) [#/Vol] K/uL 0.00 - 0.09 K/uL [facility] Basophils/100 WBC (Bld) 0.4 % O [facility] Differential cell count method Nom (Bld) Electronic Differential [facility] Eosinophils (Bld) [#/Vol] 0.14 10*3/uL 0.00 - 0.48 K/uL [facility] Eosinophils/100 WBC (Bld) 1.8 % [facility] Erythrocyte distribution width (RBC) [Ratio] 18.6 % High 10.9 - 14.3 % [facility] Hematocrit (Bld) [Volume fraction] 24.4 % Low 39.6 - 48.8 % [facility] Hemoglobin (Bld) [Mass/Vol] 7.3 g/dL Low 13.4 - 16.8 g/dL [facility] Immature granulocytes (Bld) [#/Vol] 0.06 10*3/uL NINF - 0.07 K/uL [facility] Immature granulocytes/100 WBC (Bld) 0.8 % [facility] Lymphocytes (Bld) [#/Vol] 1.34 10*3/uL 0.83 - 3.57 K/uL [facility] Lymphocytes/100 WBC (Bld) 16.9 % [facility] MCH (RBC) [Entitic mass] 33 pg 26.1 - 33.3 pg [facility] MCHC (RBC) [Mass/Vol] 29.9 g/dL Low 31.9 - 36.5 g/dL [facility] MCV (RBC) [Entitic vol] 110.4 fL High 79.0 - 94.5 fL [facility] Monocytes (Bld) [#/Vol] 0.9 10*3/uL 0.24 - 0.93 K/uL [facility] Monocytes/100 WBC (Bld) 11.3 % [facility] Neutrophils (Bld) [#/Vol] 5.46 10*3/uL 1.57 - 6.19 K/uL [facility] Nucleated RBC/100 WBC (Bld) [Ratio] 0 % NINF [facility] Platelet mean volume (Bld) [Entitic vol] 9.5 fL 8.7 - 12.3 fL [facility] Platelets (Bld) [#/Vol] 139 10*3/uL Low 146 - 337 K/uL [facility] RBC (Bld) [#/Vol] 2.21 10*6/uL Low [facility] Segmented neutrophils/100 WBC (Bld) 68.8 % [facility] WBC (Bld) [#/Vol] 7.93 10*3/uL 3.73 - 10. 10 K/uL [facility] Laboratory - Microbiology an d Antimicrobial susceptibilityOrdered By: Helga Yang on 02-13-2025 HBV surface Ag Ql (S) Negative Negative [facility] MAGNESIUMon 02-13-2025 Magnesium [Mass/Vol] 1.8 mg/dL Normal 1.6-2.6 [facility] Comment on above: Performed By: #### X M #### [facility] (DEFAULT) [address] [place] [address] No Panel Informationon 02-13 Interpretation and review of laboratory results Abnormal [facility] Interpretation and review of laboratory results Abnormal [facility] Interpretation and review of laboratory results Abnormal [facility] Interpretation and review of laboratory results Normal [facility] Interpretation and review of laboratory results Abnormal [facility] eGFR, CKD-EPI, Male 7 Low - PINF [facility] Interpretation and review of laboratory results Abnormal [facility] Interpretation and review of laboratory results Normal [facility] Interpretation and review of laboratory results Abnormal [facility] No Panel InformationOrdered By: Helga Yang on 02-13-2025 Interpretation and review of laboratory results Normal [facility] PHOSPHATE, INORGANICon 02-13 Phosphorous 2.9 mg/dL Normal 2.2-4.6 [facility] Comment on above: Performed By: #### X M #### [facility] (DEFAULT) [address] [address] PROTEIN TOTALon 02-13-2025 Protein [Mass/Vol] 7.0 g/dL Normal 6.4-8.3 [facility] Comment on above: Performed By: #### P TT #### [facility] (DEFAULT) [address] [address] PROTIME-INRon 02-13-2025 INR Coag (PPP) [Relative time] 1.7 {INR} High 0.9-1.1 [facility] Comment on above: Order Comment: Basel ine: within 24 hours prior to treatment initiationCheck for duplicate INR orders within the last 24 hours Performed By: #### X M #### [facility] (DEFAULT) [address] [address] PT Coag (PPP) [Time] 20.0 s High 11.9-14.2 [facility] Comment on above: Order Comment: Basel ine: within 24 hours prior to treatment initiationCheck for duplicate INR orders within the last 24 hours Performed By: #### X M #### [facility] (DEFAULT) [address] [address] PTTon 02-13-2025 aPTT Coag (Bld) [Time] 60.5 s High 24.0-34.[address] [facility] Comment on above: Order Comment: Draw prior to initiation of intravenous Heparin. Performed By: #### X M #### [facility] (DEFAULT) [address] [address] ALP [Catalytic activity/Vol] Ordered By: Kaveh Hadley on 02-12-2025 Serum or plasma alkaline phosphatase measurement 361 U/L High 40-129 [facility] ALT [Catalytic activity/Vol] Ordered By: Kaveh Hadley on 02-12-2025 Serum or plasma alanine aminotransferase (ALT) measurement 25 U/L <47 [facility] Absolute lymphocyte countOrd ered By: Kaveh Hadley on 02-12-2025 Lymphocytes Auto (Unsp spec) [#/Vol] 1.03 10*3/uL 0.83-4.51 [facility] Absolute lymphocyte countOrd ered By: Castro Ferrara on 02-12-2025 Lymphocytes Auto (Unsp spec) [#/Vol] 1.23 10*3/uL 0.83-4.51 [facility] Absolute neutrophil countOrd ered By: Kaveh Hadley on 02-12-2025 Absolute neutrophil count 5.9 X10^3/uL 2.0-7.7 [facility] Absolute neutrophil countOrd ered By: Castro Ferrara on 02-12-2025 Absolute neutrophil count 5.7 X10^3/uL 2.0-7.7 [facility] Activated partial thrombopla stin time (aPTT) in platelet poor plasma by coagulation aOrdered By: Kaveh Hadley on 02-12-2025 aPTT Coag (PPP) [Time] 66.1 s High 24.1-36.2 [facility] Albumin [Mass/Vol]Ordered By : Kaveh Hadley on 02-12-2025 Serum or plasma albumin measurement (mass/volume) 3.4 g/dL 3.4-4.8 [facility] Albumin/Globulin [Mass ratio ]Ordered By: Kaveh Hadley on 02-12-2025 Serum or plasma albumin/globulin mass ratio 1.0 RATIO 0.9-2.4 [facility] Anion gap [Moles/Vol]Ordered By: Kaveh Hadley on 02-12-2025 Anion gap in Serum or Plasma 21 High 5-15 [facility] Anion gap [Moles/Vol]Ordered By: Castro Ferrara on 02-12-2025 Anion gap in Serum or Plasma 20 High 5-15 [facility] Anion gap in Serum or Plasma Ordered By: Kaveh Hadley on 02-12-2025 Anion gap [Moles/Vol] 21 mmol/L High 5-15 [facility] Anion gap in Serum or Plasma Ordered By: Castro Ferrara on 02-12-2025 Anion gap [Moles/Vol] 20 mmol/L High 5-15 [facility] Automated lymphocyte count a s percentage of total leukocytesOrdered By: Kaveh Hadley on 02-12-2025 Lymphocytes/100 WBC Auto (Unsp spec) 13.1 % Low 19-41 [facility] Automated lymphocyte count a s percentage of total leukocytesOrdered By: Castro Ferrara on 02-12-2025 Lymphocytes/100 WBC Auto (Unsp spec) 15.8 % Low 19-41 [facility] BUN/creatinine ratioOrdered By: Kaveh Hadley on 02-12-2025 Urea nitrogen/Creatinine [Mass ratio] 4.4 mg/mg Low 10-20 [facility] BUN/creatinine ratio 4.4 RATIO Low 10-20 [facility] BUN/creatinine ratioOrdered By: Castro Ferrara on 02-12-2025 Urea nitrogen/Creatinine [Mass ratio] 4.2 mg/mg Low 10- [facility] BUN/creatinine ratio 4.2 RATIO Low 10-20 [facility] Basophil percentageOrdered B y: Kaveh Hadley on 02-12-2025 Basophils/100 WBC (Bld) 0.4 % 0-1 [facility] Basophil percentage 0.4 % 0-1 [facility] Basophil percentageOrdered B y: Castro Ferrara on 02-12-2025 Basophils/100 WBC (Bld) 0.4 % 0-1 [facility] Basophil percentage 0.4 % 0-1 [facility] Bilirubin, totalOrdered By: Kaveh Hadley on 02-12-2025 Bilirubin [Mass/Vol] 0.59 mg/dL 0.00-1.30 [facility] Bilirubin, total 0.59 mg/dL 0.00-1.30 [facility] Blood cultureOrdered By: Michelet Hadley on 02-12-2025 Bacteria identified Cx Nom (Bld) No growth in 5 days. [facility] Bacteria identified Cx Nom (Bld) No growth in 5 days. [facility] Blood manual differential co mment interpretation (narrative result)Ordered By: Castro Ferrara on 02-12-2025 Manual differential comment [place] (Bld) [Interp] @SLIDESCANNED [facility] Calcium [Mass/Vol]Ordered By : Kaveh Hadley on 02-12-2025 Serum or plasma calcium measurement (mass/volume) 8.1 mg/dL 7.6-11.0 [facility] Calcium [Mass/Vol]Ordered By : Castro Ferrara on 02-12-2025 Serum or plasma calcium measurement (mass/volume) 8.3 mg/dL 7.6-11.0 [facility] Carbon dioxide, total [Moles /volume] in Central venous bloodOrdered By: Kaveh Hadley on 02-12-2025 CO2 [Moles/Vol] 23.1 mmol/L 21.0-32.0 [facility] Carbon dioxide, total [Moles/volume] in Central venous blood 23.1 mmol/L 21.0-32.0 [facility] Carbon dioxide, total [Moles /volume] in Central venous bloodOrdered By: Castro Ferrara on 02-12-2025 CO2 [Moles/Vol] 23.2 mmol/L 21.0-32.0 [facility] Carbon dioxide, total [Moles/volume] in Central venous blood 23.2 mmol/L 21.0-32.0 [facility] Chloride assayOrdered By: Rommel Hadley on 02-12-2025 Chloride [Moles/Vol] 94 mmol/L Low 98-108 [facility] Chloride assay 94 mmol/L Low 98-108 [facility] Chloride assayOrdered By: Shailesh Ferrara on 02-12-2025 Chloride [Moles/Vol] 93 mmol/L Low 98-108 [facility] Chloride assay 93 mmol/L Low 98-108 [facility] Creatinine [Mass/Vol]Ordered By: Kaveh Hadley on 02-12-2025 Serum creatinine measurement (mass/volume) 6.24 mg/dL High 0.70-1.20 [facility] Creatinine [Mass/Vol]Ordered By: Castro Ferrara on 02-12-2025 Serum creatinine measurement (mass/volume) 5.84 mg/dL High 0.70-1.20 [facility] Eosinophil percentageOrdered By: Kaveh Hadley on 02-12-2025 Eosinophils/100 WBC (Bld) 1.7 % 0-5 [facility] Eosinophil percentage 1.7 % 0-5 [facility] Eosinophil percentageOrdered By: Castro Ferrara on 02-12-2025 Eosinophils/100 WBC (Bld) 1.9 % 0-5 [facility] Eosinophil percentage 1.9 % 0-5 [facility] Erythrocyte distribution wid th (RBC) [Entitic vol]Ordered By: Kaveh Hadley on 02-12-2025 Erythrocyte distribution width standard deviation 71.6 fl High 35.1-43.9 [facility] Erythrocyte distribution wid th (RBC) [Entitic vol]Ordered By: Castro Ferrara on 02-12-2025 Erythrocyte distribution width standard deviation 73.6 fl High 35.1-43.9 [facility] Erythrocyte distribution wid th (RBC) [Ratio]Ordered By: aKveh Hadley on 02-12-2025 Erythrocyte distribution width ratio 18.6 % High 11.6-14.6 [facility] Erythrocyte distribution wid th (RBC) [Ratio]Ordered By: Castro Ferrara on 02-12-2025 Erythrocyte distribution width ratio 18.7 % High 11.6-14.6 [facility] Erythrocyte distribution wid th ratioOrdered By: Kaveh Hadley on 02-12-2025 Erythrocyte distribution width (RBC) [Ratio] 18.6 % High 11.6-14.6 [facility] Erythrocyte distribution wid th ratioOrdered By: Castro Ferrara on 02-12-2025 Erythrocyte distribution width (RBC) [Ratio] 18.7 % High 11.6-14.6 [facility] Erythrocyte distribution wid th standard deviationOrdered By: Kaveh Hadley on 02-12-2025 Erythrocyte distribution width (RBC) [Ratio] 71.6 fl High 35.1-43.9 [facility] Erythrocyte distribution wid th standard deviationOrdered By: Castro Ferrara on 02-12-2025 Erythrocyte distribution width (RBC) [Ratio] 73.6 fl High 35.1-43.9 [facility] Erythrocyte morphology asses smentOrdered By: Kaveh Hadley on 02-12-2025 RBC morphology finding Nom (Bld) N CHROM NORMAL NORM C&C [facility] Erythrocyte morphology asses smentOrdered By: Castro Ferrara on 02-12-2025 RBC morphology finding Nom (Bld) N CHROM NORMAL NORM C&C [facility] Estimation of creatinine omkar aranceOrdered By: Kaveh Hadley on 02-12-2025 Estimation of creatinine clearance 9.56 ml/min Low 50-250 [facility] GFR/1.73 sq M.predicted bonnie g non-blacks MDRD (S/P/Bld) [Vol rate/Area]Ordered By: Kaveh Hadley on 02-12-2025 Glomerular filtration rate (GFR) estimation/1.73 sq m using serum, plasma, or whole b 9 Low >60 [facility] GFR/1.73 sq M.predicted bonnie g non-blacks MDRD (S/P/Bld) [Vol rate/Area]Ordered By: Castro Ferrara on 02-12-2025 Glomerular filtration rate (GFR) estimation/1.73 sq m using serum, plasma, or whole b 9 Low >60 [facility] Glomerular filtration rate ( GFR) estimation/1.73 sq m using serum, plasma, or whole bOrdered By: Kaveh Hadley on 02-12-2025 GFR/1.73 sq M.predicted among non-blacks MDRD (S/P/Bld) [Vol rate/Area] 9 mL/min/{1.73_m2} Low >60 [facility] Glomerular filtration rate ( GFR) estimation/1.73 sq m using serum, plasma, or whole bOrdered By: Castro Ferrara on 02-12-2025 GFR/1.73 sq M.predicted among non-blacks MDRD (S/P/Bld) [Vol rate/Area] 9 mL/min/{1.73_m2} Low >60 [facility] Glucose [Mass/Vol]Ordered By : Kaveh Hadley on 02-12-2025 Serum glucose measurement (mass/volume) 97 mg/dL - [facility] Glucose [Mass/Vol]Ordered By : Castro Ferrara on 02-12-2025 Serum glucose measurement (mass/volume) 91 mg/dL -99 [facility] Hematocrit Auto (Bld) [Volum e fraction]Ordered By: Kaveh Hadley on 02-12-2025 Hematocrit (Bld) [Volume fraction] 25.0 % Low 40-54 [facility] Automated blood hematocrit (percentage) 25.0 % Low 40-54 [facility] Hematocrit Auto (Bld) [Volum e fraction]Ordered By: Castro Ferrara on 02-12-2025 Hematocrit (Bld) [Volume fraction] 24.8 % Low 40-54 [facility] Automated blood hematocrit (percentage) 24.8 % Low 40-54 [facility] Hemoglobin measurementOrdere d By: Kaveh Hadley on 02-12-2025 Hemoglobin (Bld) [Mass/Vol] 8.1 g/dL Low 13.0-16.5 [facility] Hemoglobin measurement 8.1 g/dL Low 13.0-16.5 [facility] Hemoglobin measurementOrdere d By: Castro Ferrara on 02-12-2025 Hemoglobin (Bld) [Mass/Vol] 7.8 g/dL Low 13.0-16.5 [facility] Hemoglobin measurement 7.8 g/dL Low 13.0-16.5 [facility] Hypochromatic red blood cell detectionOrdered By: Kaveh Hadley on 02-12-2025 Hypochromia Ql (Bld) RARE [facility] Hypochromatic red blood cell detection RARE [facility] Immature granulocytes/100 WB C Auto (Bld)Ordered By: Kaveh Hadley on 02-12-2025 Immature granulocytes/100 WBC (Bld) 1.000 % High 0.0-0.9 [facility] Automated immature granulocyte percentage 1.000 % High 0.0-0.9 [facility] Immature granulocytes/100 WB C Auto (Bld)Ordered By: Castro Ferrara on 02-12-2025 Immature granulocytes/100 WBC (Bld) 0.800 % 0.0-0.9 [facility] Automated immature granulocyte percentage 0.800 % 0.0-0.9 [facility] International normalized rat io (INR) calculationOrdered By: Kaveh Hadley on 02-12-2025 International normalized ratio (INR) calculation 1.4 [facility] Lactic acid measurementOrder ed By: Kaveh Hadley on 02-12-2025 Lactic acid measurement 3.0 mmol/L High 0.0-2.0 [facility] Lower GI hemoglobin IA Ql (S tl)Ordered By: Kaveh Hadley on 02-12-2025 Stool gastrointestinal hemoglobin detection by immunologic method Positive Abnormal [facility] Lymphocytes Auto (Unsp spec) [#/Vol]Ordered By: Kaveh Hadley on 02-12-2025 Absolute lymphocyte count 1.03 X10^3/uL 0.83-4.51 [facility] Lymphocytes Auto (Unsp spec) [#/Vol]Ordered By: Castro Ferrara on 02-12-2025 Absolute lymphocyte count 1.23 X10^3/uL 0.83-4.51 [facility] Lymphocytes/100 WBC Auto (Un sp spec)Ordered By: Kaveh Hadley on 02-12-2025 Automated lymphocyte count as percentage of total leukocytes 13.1 % Low - [facility] Lymphocytes/100 WBC Auto (Un sp spec)Ordered By: Castro Ferrara on 02-12-2025 Automated lymphocyte count as percentage of total leukocytes 15.8 % Low - [facility] MCV (RBC) [Entitic vol]Order ed By: Kaveh Hadley on 02-12-2025 MCV (mean corpuscular volume) determination 106.8 fL High 80-94 [facility] MCV (RBC) [Entitic vol]Order ed By: Castro Ferrara on 02-12-2025 MCV (mean corpuscular volume) determination 108.3 fL High 80-94 [facility] MCV (mean corpuscular volume ) determinationOrdered By: Kaveh Hadley on 02-12-2025 MCV (RBC) [Entitic vol] 106.8 fL High 80-94 [facility] MCV (mean corpuscular volume ) determinationOrdered By: Castro Ferrara on 02-12-2025 MCV (RBC) [Entitic vol] 108.3 fL High 80-94 [facility] Macrocytes detectionOrdered By: Kaveh Hadley on 02-12-2025 Macrocytes Ql (Bld) 1+ [facility] Macrocytes detection 1+ [facility] Macrocytes detectionOrdered By: Castro Ferrara on 02-12-2025 Macrocytes Ql (Bld) 1+ [facility] Macrocytes detection 1+ [facility] Manual differential comment [place] (Bld) [Interp]Ordered By: Castro Ferrara on 02-12-2025 Blood manual differential comment interpretation (narrative result) @SLIDESCANNED [facility] Mean corpuscular hemoglobin (MCH) determinationOrdered By: Kaveh Hadley on 02-12-2025 MCH (RBC) [Entitic mass] 34.6 pg High 27.0-32.0 [facility] Mean corpuscular hemoglobin (MCH) determination 34.6 pg High 27.0-32.0 [facility] Mean corpuscular hemoglobin (MCH) determinationOrdered By: Castro Ferrara on 02-12-2025 MCH (RBC) [Entitic mass] 34.1 pg High 27.0-32.0 [facility] Mean corpuscular hemoglobin (MCH) determination 34.1 pg High 27.0-32.0 [facility] Mean corpuscular hemoglobin concentration (MCHC) determinationOrdered By: Kaveh Haldey on 02-12-2025 Mean corpuscular hemoglobin concentration (MCHC) determination 32.4 g/dL 32-36 [facility] Mean corpuscular hemoglobin concentration (MCHC) determinationOrdered By: Castro Ferrara on 02-12-2025 Mean corpuscular hemoglobin concentration (MCHC) determination 31.5 g/dL Low 32-36 [facility] Mean platelet volume determi nationOrdered By: Kaveh Hadley on 02-12-2025 Mean platelet volume determination 10.4 fl 6.2-12.0 [facility] Mean platelet volume determi nationOrdered By: Castro Ferrara on 02-12-2025 Mean platelet volume determination 10.5 fl 6.2-12.0 [facility] Monocyte percentageOrdered B y: Kaveh Hadley on 02-12-2025 Monocytes/100 WBC (Bld) 9.3 % 0-10 [facility] Monocyte percentage 9.3 % 0-10 [facility] Monocyte percentageOrdered B y: Castro Ferrara on 02-12-2025 Monocytes/100 WBC (Bld) 8.7 % 0-10 [facility] Monocyte percentage 8.7 % 0-10 [facility] Neutrophil percentageOrdered By: Kaveh Hadley on 02-12-2025 Neutrophils/100 WBC (Bld) 74.5 % High 47-70 [facility] Neutrophil percentage 74.5 % High 47-70 [facility] Neutrophil percentageOrdered By: Castro Ferrara on 02-12-2025 Neutrophils/100 WBC (Bld) 72.4 % High 47-70 [facility] Neutrophil percentage 72.4 % High 47-70 [facility] No Panel InformationOrdered By: Kaveh Hadley on 02-12-2025 72 U/L High <38 [facility] No Panel InformationOrdered By: Castro Ferrara on 02-12-2025 [address] pg/mL High <1800 [facility] Nucleated red blood cell per centageOrdered By: Kaveh Hadley on 02-12-2025 Nucleated red blood cell percentage 0.3 % 0-5 [facility] Nucleated red blood cell per centageOrdered By: Castro Ferrara on 02-12-2025 Nucleated red blood cell percentage 0 % 0-5 [facility] Ovalocyte detectionOrdered B y: Kaveh Hadley on 02-12-2025 Ovalocytes LM Ql (Bld) RARE [facility] Ovalocyte detectionOrdered B y: Castro Ferrara on 02-12-2025 Ovalocytes LM Ql (Bld) 1+ [facility] Platelet countOrdered By: Rommel Hadley on 02-12-2025 Platelets (Bld) [#/Vol] 151 10*3/uL 150-450 [facility] Platelet count 151 K/mm3 150-450 [facility] Platelet countOrdered By: Shailesh Ferrara on 02-12-2025 Platelets (Bld) [#/Vol] 146 10*3/uL Low 150-450 [facility] Platelet count 146 K/mm3 Low 150-450 [facility] Platelet estimateOrdered By: Kaveh Hadley on 02-12-2025 Platelets LM Ql (Bld) ADEQUATE ADEQ [facility] Platelet estimateOrdered By: Castro Ferrara on 02-12-2025 Platelets LM Ql (Bld) ADEQUATE ADEQ [facility] Platelets LM Ql (Bld)Ordered By: Kaveh Hadley on 02-12-2025 Platelet estimate ADEQUATE ADEQ [facility] Platelets LM Ql (Bld)Ordered By: Castro Ferrara on 02-12-2025 Platelet estimate ADEQUATE ADEQ [facility] Potassium (Unsp spec) [Mass/ Vol]Ordered By: Kaveh Hadley on 02-12-2025 Potassium measurement (mass/volume) 3.8 mmol/L 3.3-5.1 [facility] Potassium (Unsp spec) [Mass/ Vol]Ordered By: Castro Ferrara on 02-12-2025 Potassium measurement (mass/volume) 3.3 mmol/L 3.3-5.1 [facility] Potassium measurement (mass/ volume)Ordered By: Kaveh Hadley on 02-12-2025 Potassium (Unsp spec) [Mass/Vol] 3.8 mmol/L 3.3-5.1 [facility] Potassium measurement (mass/ volume)Ordered By: Castro Ferrara on 02-12-2025 Potassium (Unsp spec) [Mass/Vol] 3.3 mmol/L 3.3-5.1 [facility] Prothrombin timeOrdered By: Kaveh Hadley on 02-12-2025 PT Coag (PPP) [Time] 17.9 s High 11.7-14.9 [facility] Prothrombin time 17.9 SECONDS High 11.7-14.9 [facility] RBC Auto (Bld) [#/Vol]Ordere d By: Kaveh Hadley on 02-12-2025 RBC (Bld) [#/Vol] 2.34 10*6/uL Low 4.6-6.2 [facility] Automated blood erythrocyte count 2.34 M/mm3 Low 4.6-6.2 [facility] RBC Auto (Bld) [#/Vol]Ordere d By: Castro Ferrara on 02-12-2025 RBC (Bld) [#/Vol] 2.29 10*6/uL Low 4.6-6.2 [facility] Automated blood erythrocyte count 2.29 M/mm3 Low 4.6-6.2 [facility] RBC morphology finding Nom ( Bld)Ordered By: Kaveh Hadley on 02-12-2025 Erythrocyte morphology assessment N CHROM NORMAL NORM C&C [facility] RBC morphology finding Nom ( Bld)Ordered By: Castro Ferrara on 02-12-2025 Erythrocyte morphology assessment N CHROM NORMAL NORM C&C [facility] Serum creatinine measurement (mass/volume)Ordered By: Kaveh Hadley on 02-12-2025 Creatinine [Mass/Vol] 6.24 mg/dL High 0.70-1.20 [facility] Serum creatinine measurement (mass/volume)Ordered By: Castro Ferrara on 02-12-2025 Creatinine [Mass/Vol] 5.84 mg/dL High 0.70-1.20 [facility] Serum globulin measurementOr dered By: Kaveh Hadley on 02-12-2025 Globulin (S) [Mass/Vol] 3.5 g/dL 2.2-4.2 [facility] Serum globulin measurement 3.5 g/dL 2.2-4.2 [facility] Serum glucose measurement (m ass/volume)Ordered By: Kaveh Hadley on 02-12-2025 Glucose [Mass/Vol] 97 mg/dL 70-99 [facility] Serum glucose measurement (m ass/volume)Ordered By: Castro Ferrara on 02-12-2025 Glucose [Mass/Vol] 91 mg/dL 70-99 [facility] Serum or plasma alanine lorenzana otransferase (ALT) measurementOrdered By: Kaveh Hadley on 02-12-2025 ALT [Catalytic activity/Vol] 25 U/L <47 [facility] Serum or plasma albumin khalif urement (mass/volume)Ordered By: Kaveh aHdley on 02-12-2025 Albumin [Mass/Vol] 3.4 g/dL 3.4-4.8 [facility] Serum or plasma albumin/glob ulin mass ratioOrdered By: Kaveh Hadley on 02-12-2025 Albumin/Globulin [Mass ratio] 1.0 {ratio} 0.9-2.4 [facility] Serum or plasma alkaline guille sphatase measurementOrdered By: Kaveh Hadley on 02-12-2025 ALP [Catalytic activity/Vol] 361 U/L High 40-129 [facility] Serum or plasma calcium khalif urement (mass/volume)Ordered By: Kaveh Hadley on 02-12-2025 Calcium [Mass/Vol] 8.1 mg/dL 7.6-11.0 [facility] Serum or plasma calcium khalif urement (mass/volume)Ordered By: Castro Ferrara on 02-12-2025 Calcium [Mass/Vol] 8.3 mg/dL 7.6-11.0 [facility] Serum or plasma urea nitroge n measurement (mass/volume)Ordered By: Kaveh Hadley on 02-12-2025 Urea nitrogen [Mass/Vol] 28 mg/dL High 03-07 [facility] Serum or plasma urea nitroge n measurement (mass/volume)Ordered By: Castro Ferrara on 02-12-2025 Urea nitrogen [Mass/Vol] 25 mg/dL High 03-07 [facility] Sodium levelOrdered By: Kody Hadley on 02-12-2025 Sodium [Moles/Vol] 139 mmol/L 133-145 [facility] Sodium level 139 mmol/L 133-145 [facility] Sodium levelOrdered By: Castro Ferrara on 02-12-2025 Sodium [Moles/Vol] 137 mmol/L 133-145 [facility] Sodium level 137 mmol/L 133-145 [facility] Stool gastrointestinal hemog lobin detection by immunologic methodOrdered By: Kaveh Hadley on 02-12-2025 Lower GI hemoglobin IA Ql (Stl) Positive Abnormal [facility] Total proteinOrdered By: Michelet Hadley on 02-12-2025 Protein [Mass/Vol] 6.9 g/dL 5.9-8.4 [facility] Total protein 6.9 g/dL 5.9-8.4 [facility] Urea nitrogen [Mass/Vol]Orde red By: Kaveh Hadley on 02-12-2025 Serum or plasma urea nitrogen measurement (mass/volume) 28 mg/dL [facility] 03-07 [facility] Urea nitrogen [Mass/Vol]Orde red By: Castro Ferrara on 02-12-2025 Serum or plasma urea nitrogen measurement (mass/volume) 25 mg/dL High 03-07 [facility] Venous blood ammonia measure mentOrdered By: Castro Ferrara on 02-12-2025 Ammonia (P) [Moles/Vol] 27.3 umol/L 16-60 [facility] Venous blood ammonia measurement 27.3 umol/L 16-60 [facility] White blood cell (WBC) count Ordered By: Kaveh Hadley on 02-12-2025 WBC (Bld) [#/Vol] 7.9 10*3/uL 4.4-11.0 [facility] White blood cell (WBC) count 7.9 K/mm3 4.4-11.0 [facility] White blood cell (WBC) count Ordered By: Castro Ferrara on 02-12-2025 WBC (Bld) [#/Vol] 7.8 10*3/uL 4.4-11.0 [facility] White blood cell (WBC) count 7.8 K/mm3 4.4-11.0 [facility] aPTT Coag (PPP) [Time]Ordere d By: Kaveh Hadley on 02-12-2025 Activated partial thromboplastin time (aPTT) in platelet poor plasma by coagulation a 66.1 Seconds High 24.1-36.2 [facility] No Panel InformationOrdered By: Jane Torres on 02-11-2025 2.7 [facility] No Panel InformationOrdered By: Jane Torres on 02-09-2025 1.9 [facility] No Panel InformationOrdered By: Jane Torres on 02-02-2025 4.1 [facility] No Panel InformationOrdered By: Jane Torres on 01-26-2025 3.9 [facility] Hematocrit Auto (Bld) [Volum e fraction]Ordered By: Sharron Calderon on 01-22-2025 Hematocrit (Bld) [Volume fraction] 31.3 % [facility] 40-54 [facility] Automated blood hematocrit (percentage) 31.3 % [facility] 40-54 [facility] Hemoglobin measurementOrdere d By: Sharron Calderon on 01-22-2025 Hemoglobin (Bld) [Mass/Vol] 10.1 g/dL Low 13.0-16.5 [facility] Hemoglobin measurement 10.1 g/dL Low 13.0-16.5 [facility] No Panel Informationon 01-19 3.6 [facility] No Panel Informationon 01-05 3.9 [facility] No Panel InformationOrdered By: Jane Torres on 01-02-2025 3.2 [facility] No Panel Informationon 12-29 2.3 [facility] No Panel InformationOrdered By: sEa Mckeon on 12-24-2024 1.9 [facility] No Panel InformationOrdered By: Jane Torres on 12-22-2024 1.9 [facility] CASE REQUEST DEPARTMENT USE ONLY INTERVENTIONAL RADIOLOGY: REPAIR CENTRAL VENOUS ACCESS DEVICE CATHETER W/O PORT PUMPon 12-19-2024 ROSE Liriano 12/19/2024 10:51 AM CASE REQUEST DEPARTMENT USE ONLY INTERVENTIONAL RADIOLOGY: REPAIR CENTRAL VENOUS ACCESS DEVICE CATHETER W/O PORT PUMP Procedure Date: 12/19/2024 Performed by: ROSE Liriano Authorized by: Trina Graham APRN-CUSTOMER ASSISTANT DIAGNOSIS End stage renal disease Indications Indications: broken port Niland Protocol Verbal consent obtained Risks and benefits were discussed. Consent given by: patient Patient identity confirmed: verbally with patient time out called Checklist was followed: Yes Procedure Details Hand hygiene used Landmarks identified Skin prep agent completely dried prior to procedure Maximum sterile barriers were used: cap, mask, sterile gown, sterile gloves, and large sterile sheet Location: right IJ THDC Patient position: Supine Anesthesia: Local anesthesia used: no Sedation Patient not sedated Procedure stop date: 12/19/2024 Post-procedure Line secured: Yes Dressing applied: Sterile Post Procedure Diagnosis: End stage renal disease Estimated blood loss (ml): 0 Procedure complications: none Patient tolerated the procedure well with no immediate complications I performed the procedure myself Additional Notes OPERATORS ROSE Liriano PREOPERATIVE DIAGNOSIS Broken clamp of a tunneled HD catheter. PROCEDURE 1. Repair of right IJ tunneled hemodialysis catheter. INDICATIONS/CONSENT Christian Amador is a 74 y.o. male, with ESRD , who was referred for repair of his tunneled hemodialysis catheter because of broken clamp. The risks, benefits and alternatives of the procedure were explained and a consent was obtained TECHNIQUE The catheter and skin were prepped and draped in the usual sterile fashion. The port was clamped, old hub were removed and a hub was placed. Port was flushed and capped. There were no complications. ROSE Liriano [facility] Radiology Study observation (narrative) [facility] CBC,PLATELETSon 12-19-2024 Erythrocyte distribution width (RBC) [Ratio] 17.7 % High 10.9 - 14.3 % [facility] Hematocrit (Bld) [Volume fraction] 35.8 % Low 39.6 - 48.8 % [facility] Hemoglobin (Bld) [Mass/Vol] 11.3 g/dL Low 13.4 - 16.8 g/dL [facility] Interpretation and review of laboratory results Abnormal [facility] MCH (RBC) [Entitic mass] 33.5 pg High 26.1 - 33.3 pg [facility] MCHC (RBC) [Mass/Vol] 31.6 g/dL Low 31.9 - 36.5 g/dL [facility] MCV (RBC) [Entitic vol] 106.2 fL High 79.0 - 94.5 fL [facility] Platelet mean volume (Bld) [Entitic vol] 10.3 fL 8.7 - 12.3 fL [facility] Platelets (Bld) [#/Vol] 201 10*3/uL 146 - 337 K/uL [facility] RBC (Bld) [#/Vol] 3.37 10*6/uL Low [facility] WBC (Bld) [#/Vol] 9.85 10*3/uL 3.73 - 10. 10 K/uL [facility] Hematocrit (Bld) [Volume fraction] 35.8 % Low 39.6-48.8 [facility] Comment on above: Performed By: #### X M #### [facility] (DEFAULT) [address] [address] Hemoglobin (Bld) [Mass/Vol] 11.3 g/dL Low 13.4-16.8 [facility] Comment on above: Performed By: #### X M #### [facility] (DEFAULT) [address] [address] MCV (RBC) [Entitic vol] 106.2 fL High 79.0-94.5 O [facility] Comment on above: Performed By: #### X M #### [facility] (DEFAULT) [address] [address] Mean Cell Hgb 33.5 pg High 26.1-33.3 [facility] Comment on above: Performed By: #### X M #### [facility] (DEFAULT) [address] [address] Mean Cell Hgb Conc 31.6 g/dL Low 31.9-36.5 [facility] Comment on above: Performed By: #### X M #### [facility] (DEFAULT) [address] [address] Platelet mean volume (Bld) [Entitic vol] 10.3 fL Normal 8.7-12.3 [facility] Comment on above: Performed By: #### X M #### [facility] (DEFAULT) [address] [address] Platelets (Bld) [#/Vol] 201 10*3/uL Normal 146-337 [facility] Comment on above: Performed By: #### X M #### [facility] (DEFAULT) [address] [address] RBC (Bld) [#/Vol] 3.37 10*6/uL Low 4.38-5.83 [facility] Comment on above: Performed By: #### X M #### [facility] (DEFAULT) [address] [address] RBC Distribution 17.7 % High 10.9-14.3 [facility] Comment on above: Performed By: #### X M #### [facility] (DEFAULT) [address] [address] WBC (Bld) [#/Vol] 9.85 10*3/uL Normal 3.73-10.10 [facility] Comment on above: Performed By: #### X M #### [facility] (DEFAULT) [address] [address] CHEM 7 (LYTES,BUN,CREA,GLUC) on 12-19-2024 Anion gap [Moles/Vol] 21 mmol/L High 7 - 17 mmol/L [facility] Chloride [Moles/Vol] 94 mmol/L Low 98 - 10 8 mmol/L [facility] CO2 [Moles/Vol] 25 mmol/L 21 - 31 mmol/L [facility] Creatinine [Mass/Vol] 9.09 mg/dL High 0.70 - 1.30 mg/dL [facility] eGFR, CKD-EPI, Male 6 Low - PINF [facility] Comment on above: Reported eGFR is bas ed on the CKD-EPI 2020 equation using creatinine, age, and sex. Glucose [Mass/Vol] 83 mg/dL 70 - 99 mg/dL [facility] Interpretation and review of laboratory results Abnormal [facility] Osmolality Calc [Osmolality] 299 [facility] Potassium [Moles/Vol] 4.5 mmol/L 3.5 - 5.0 mmol/L [facility] Sodium [Moles/Vol] 135 mmol/L 135 - 145 mmol/L [facility] Urea nitrogen [Mass/Vol] 58 mg/dL High 7 - 25 mg/dL [facility] Urea nitrogen/Creatinine [Mass ratio] 6 mg/mg [facility] Anion gap [Moles/Vol] 21 mmol/L High 7-17 [facility] Comment on above: Performed By: #### X M #### [facility] (DEFAULT) [address] [place] [address] Chloride [Moles/Vol] 94 mmol/L Low 98-108 [facility] Comment on above: Performed By: #### X M #### [facility] (DEFAULT) [address] [place] [address] CO2 [Moles/Vol] 25 mmol/L Normal 21-31 [facility] Comment on above: Performed By: #### X M #### [facility] (DEFAULT) [address] [place] [address] Creatinine [Mass/Vol] 9.09 mg/dL High 0.70-1.30 [facility] Comment on above: Performed By: #### X M #### U [facility] (DEFAULT) [address] [place] [address] GFR/1.73 sq M.predicted among non-blacks MDRD (S/P/Bld) [Vol rate/Area] 6 mL/min/{1.73_m2} Low >=60 [facility] Comment on above: Result Comment: Repo rted eGFR is based on the CKD-EPI 2020 equation using creatinine, age, and sex. Performed By: #### X M #### [facility] (DEFAULT) [address] [place] [address] Glucose [Mass/Vol] 83 mg/dL Normal 70-99 [facility] Comment on above: Performed By: #### X M #### [facility] (DEFAULT) [address] [place] [address] Osmolality [Osmolality] 299 mosm/kg Normal 278-305 [facility] Comment on above: Performed By: #### X M #### [facility] (DEFAULT) [address] [place] [address] Potassium [Moles/Vol] 4.5 mmol/L Normal 3.5-5.0 [facility] Comment on above: Performed By: #### X M #### [facility] (DEFAULT) [address] [place] [address] Sodium [Moles/Vol] 135 mmol/L Normal 135-145 [facility] Comment on above: Performed By: #### X M #### U [facility] (DEFAULT) [address] [place] [address] Urea nitrogen [Mass/Vol] 58 mg/dL High 7-25 [facility] Comment on above: Performed By: #### X M #### [facility] (DEFAULT) [address] [place] [address] Urea nitrogen/Creatinine [Mass ratio] 6 mg/mg Normal [facility] Comment on above: Performed By: #### X M #### [facility] (DEFAULT) [address] [place] [address] No Panel Informationon 12-19 2.0 [facility] PT,INR,PTTon 12-19-2024 aPTT Coag (PPP) [Time] 80.4 s High [facility] INR Coag (Bld) [Relative time] 2.0 {INR} High 0.9 - 1.1 [facility] Interpretation and review of laboratory results Abnormal [facility] PT Coag (PPP) [Time] 22.3 s High [facility] aPTT Coag (Bld) [Time] 80.4 s High 24.0-34.[address] [facility] Comment on above: Performed By: #### X M #### [facility] (DEFAULT) [address] [place] [address] INR Coag (PPP) [Relative time] 2.0 {INR} High 0.9-1.1 [facility] Comment on above: Performed By: #### X M #### [facility] (DEFAULT) [address] [place] [address] PT Coag (PPP) [Time] 22.3 s High 11.9-14.2 [facility] Comment on above: Performed By: #### X M #### [facility] (DEFAULT) [address] [place] [address] CBC,PLATELETSon 12-18-2024 Erythrocyte distribution width (RBC) [Ratio] 17.8 % High 10.9 - 14.3 % [facility] Hematocrit (Bld) [Volume fraction] 33.8 % Low 39.6 - 48.8 % [facility] Hemoglobin (Bld) [Mass/Vol] 11.0 g/dL Low 13.4 - 16.8 g/dL [facility] Interpretation and review of laboratory results Abnormal [facility] MCH (RBC) [Entitic mass] 34.4 pg High 26.1 - 33.3 pg [facility] MCHC (RBC) [Mass/Vol] 32.5 g/dL 31.9 - 36.5 g/dL [facility] MCV (RBC) [Entitic vol] 105.6 fL High 79.0 - 94.5 fL [facility] Platelet mean volume (Bld) [Entitic vol] 9.9 fL 8.7 - 12.3 fL [facility] Platelets (Bld) [#/Vol] 198 10*3/uL 146 - 337 K/uL [facility] RBC (Bld) [#/Vol] 3.20 10*6/uL Low [facility] WBC (Bld) [#/Vol] 9.74 10*3/uL 3.73 - 10. 10 K/uL [facility] Hematocrit (Bld) [Volume fraction] 33.8 % Low 39.6-48.8 [facility] Comment on above: Performed By: #### X M #### [facility] (DEFAULT) [address] [address] Hemoglobin (Bld) [Mass/Vol] 11.0 g/dL Low 13.4-16.8 [facility] Comment on above: Performed By: #### X M #### [facility] (DEFAULT) [address] [place] [address] MCV (RBC) [Entitic vol] 105.6 fL High 79.0-94.5 O [facility] Comment on above: Performed By: #### X M #### [facility] (DEFAULT) [address] [place] [address] Mean Cell Hgb 34.4 pg High 26.1-33.3 [facility] Comment on above: Performed By: #### X M #### [facility] (DEFAULT) [address] [address] Mean Cell Hgb Conc 32.5 g/dL Normal 31.9-36.5 [facility] Comment on above: Performed By: #### X M #### [facility] (DEFAULT) [address] [place] [address] Platelet mean volume (Bld) [Entitic vol] 9.9 fL Normal 8.7-12.3 [facility] Comment on above: Performed By: #### X M #### [facility] (DEFAULT) [address] [place] [address] Platelets (Bld) [#/Vol] 198 10*3/uL Normal 146-337 [facility] Comment on above: Performed By: #### X M #### [facility] (DEFAULT) [address] [place] [address] RBC (Bld) [#/Vol] 3.20 10*6/uL Low 4.38-5.83 [facility] Comment on above: Performed By: #### X M #### [facility] (DEFAULT) [address] [place] [address] RBC Distribution 17.8 % High 10.9-14.3 [facility] Comment on above: Performed By: #### X M #### [facility] (DEFAULT) [address] [place] [address] WBC (Bld) [#/Vol] 9.74 10*3/uL Normal 3.73-10.10 [facility] Comment on above: Performed By: #### X M #### [facility] (DEFAULT) [address] [place] [address] CHEM 7 (LYTES,BUN,CREA,GLUC) on 12-18-2024 Anion gap [Moles/Vol] 17 mmol/L 7 - 17 mmol/L [facility] Chloride [Moles/Vol] 93 mmol/L Low 98 - 10 8 mmol/L [facility] CO2 [Moles/Vol] 28 mmol/L 21 - 31 mmol/L [facility] Creatinine [Mass/Vol] 8.06 mg/dL High 0.70 - 1.30 mg/dL [facility] eGFR, CKD-EPI, Male 6 Low - PINF [facility] Comment on above: Reported eGFR is bas ed on the CKD-EPI 2020 equation using creatinine, age, and sex. Glucose [Mass/Vol] 89 mg/dL 70 - 99 mg/dL [facility] Osmolality Calc [Osmolality] 294 [facility] Potassium [Moles/Vol] 5.2 mmol/L High 3.5 - 5.0 mmol/L [facility] Comment on above: Specimen slightly he molyzed. Potassium results may be falsey elevated by more than 0.5 mmol/L. Consider recollection. Sodium [Moles/Vol] 133 mmol/L Low 135 - 145 mmol/L [facility] Urea nitrogen [Mass/Vol] 48 mg/dL High 7 - 25 mg/dL [facility] Urea nitrogen/Creatinine [Mass ratio] 6 mg/mg [facility] Anion gap [Moles/Vol] 17 mmol/L Normal 7-17 [facility] Comment on above: Performed By: #### X M #### [facility] (DEFAULT) [address] [address] Chloride [Moles/Vol] 93 mmol/L Low 98-108 [facility] Comment on above: Performed By: #### X M #### [facility] (DEFAULT) [address] [address] CO2 [Moles/Vol] 28 mmol/L Normal 21-31 [facility] Comment on above: Performed By: #### X M #### [facility] (DEFAULT) [address] [address] Creatinine [Mass/Vol] 8.06 mg/dL High 0.70-1.30 [facility] Comment on above: Performed By: #### X M #### [facility] (DEFAULT) [address] [address] GFR/1.73 sq M.predicted among non-blacks MDRD (S/P/Bld) [Vol rate/Area] 6 mL/min/{1.73_m2} Low >=60 [facility] Comment on above: Result Comment: Repo rted eGFR is based on the CKD-EPI 2020 equation using creatinine, age, and sex. Performed By: #### X M #### [facility] (DEFAULT) [address] [place] [address] Glucose [Mass/Vol] 89 mg/dL Normal 70-99 [facility] Comment on above: Performed By: #### X M #### [facility] (DEFAULT) [address] [place] [address] Osmolality [Osmolality] 294 mosm/kg Normal 278-305 [facility] Comment on above: Performed By: #### X M #### [facility] (DEFAULT) [address] [place] [address] Potassium [Moles/Vol] 5.2 mmol/L High 3.5-5.0 [facility] Comment on above: Result Comment: Spec imen slightly hemolyzed. Potassium results may be falsey elevated by more than 0.5 mmol/L. Consider recollection. Performed By: #### X M #### [facility] (DEFAULT) [address] [place] [address] Sodium [Moles/Vol] 133 mmol/L Low 135-145 [facility] Comment on above: Performed By: #### X M #### [facility] (DEFAULT) [address] [place] [address] Urea nitrogen [Mass/Vol] 48 mg/dL High 7-25 [facility] Comment on above: Performed By: #### X M #### [facility] (DEFAULT) [address] [place] [address] Urea nitrogen/Creatinine [Mass ratio] 6 mg/mg Normal [facility] Comment on above: Performed By: #### X M #### [facility] (DEFAULT) [address] [place] [address] HEPATIC FUNCTION PANELon Albumin [Mass/Vol] 4.2 g/dL 3.5 - 5.0 g/dL [facility] ALP [Catalytic activity/Vol] 375 U/L High 32 - 126 U/L [facility] ALT [Catalytic activity/Vol] 37 U/L 10 - 52 U/L [facility] AST [Catalytic activity/Vol] 48 U/L High 10 - 39 U/L [facility] Comment on above: Specimen slightly he molyzed. AST results may be falsely elevated. Interpret within the clinical context. Bilirubin [Mass/Vol] 1.1 mg/dL NINF - 1.5 mg/dL [facility] Bilirubin.direct [Mass/Vol] 0.2 mg/dL [facility] mg/dL [facility] Comment on above: Specimen hemolyzed. Direct bilirubin results may be falsely decreased. Interpret within the clinical context. Protein [Mass/Vol] 8.6 g/dL High 6.4 - 8.3 g/dL [facility] Albumin [Mass/Vol] 4.2 g/dL Normal 3.5-5.0 [facility] Comment on above: Performed By: #### X M #### [facility] (DEFAULT) [address] [address] ALP [Catalytic activity/Vol] 375 U/L High 32-126 [facility] Comment on above: Performed By: #### X M #### [facility] (DEFAULT) [address] [place] [address] ALT [Catalytic activity/Vol] 37 U/L Normal 10-52 [facility] Comment on above: Performed By: #### X M #### [facility] (DEFAULT) [address] [place] [address] AST [Catalytic activity/Vol] 48 U/L High 10-39 [facility] Comment on above: Result Comment: Spec imen slightly hemolyzed. AST results may be falsely elevated. Interpret within the clinical context. Performed By: #### X M #### [facility] (DEFAULT) [address] [place] [address] Bilirubin [Mass/Vol] 1.1 mg/dL Normal <1.5 [facility] Comment on above: Performed By: #### X M #### [facility] (DEFAULT) [address] [place] [address] Bilirubin.indirect [Mass/Vol] 0.2 mg/dL Normal <0.3 [facility] Comment on above: Result Comment: Spec imen hemolyzed. Direct bilirubin results may be falsely decreased. Interpret within the clinical context. Performed By: #### X M #### [facility] (DEFAULT) [address] [place] [address] Protein [Mass/Vol] 8.6 g/dL High 6.4-8.3 [facility] Comment on above: Performed By: #### X M #### [facility] (DEFAULT) [address] [place] [address] No Panel Informationon 12-18 Interpretation and review of laboratory results Abnormal [facility] PT,INR,PTTon 12-18-2024 aPTT Coag (PPP) [Time] 75.2 s High [facility] INR Coag (Bld) [Relative time] 1.9 {INR} High 0.9 - 1.1 [facility] Interpretation and review of laboratory results Abnormal [facility] PT Coag (PPP) [Time] 21.8 s High [facility] aPTT Coag (Bld) [Time] 75.2 s High 24.0-34.[address] [facility] Comment on above: Performed By: #### X M #### [facility] (DEFAULT) [address] [place] [id number] INR Coag (PPP) [Relative time] 1.9 {INR} High 0.9-1.1 [facility] Comment on above: Performed By: #### X M #### [facility] (DEFAULT) [address] [place] [address] PT Coag (PPP) [Time] 21.8 s High 11.9-14.2 [facility] Comment on above: Performed By: #### X M #### [facility] (DEFAULT) [address] [place] [id number] Absolute lymphocyte countOrd ered By: Marquis Gomes on 12-17-2024 Lymphocytes Auto (Unsp spec) [#/Vol] 1.79 10*3/uL 0.83-4.51 [facility] Absolute neutrophil countOrd ered By: Marquis Gomes on 12-17-2024 Absolute neutrophil count 5.8 X10^3/uL 2.0-7.7 [facility] Automated lymphocyte count a s percentage of total leukocytesOrdered By: Marquis Gomes on 12-17-2024 Lymphocytes/100 WBC Auto (Unsp spec) 19.3 % 19-41 [facility] Basophil percentageOrdered B y: Marquis Gomes on 12-17-2024 Basophils/100 WBC (Bld) 0.8 % 0-1 [facility] Basophil percentage 0.8 % 0-1 [facility] Blood manual differential co mment interpretation (narrative result)Ordered By: Marquis Gomes on 12-17-2024 Manual differential comment [place] (Bld) [Interp] SCANNED [facility] Blood urea nitrogen (BUN)/cr eatinine ratioOrdered By: Marquis Gomes on 12-17-2024 Blood urea nitrogen (BUN)/creatinine ratio 6.3 RATIO Low 10-20 [facility] Calcium [Mass/Vol]Ordered By : Marquis Gomes on 12-17-2024 Serum or plasma calcium measurement (mass/volume) 8.6 mg/dL 8.5-10.1 [facility] Carbon dioxide measurementOr dered By: Marquis Gomes on 12-17-2024 CO2 [Moles/Vol] 24.0 mmol/L 21.0-32.0 [facility] Carbon dioxide measurement 24.0 mmol/L 21.0-32.0 [facility] Chloride measurementOrdered By: Marquis Gomes on 12-17-2024 Chloride [Moles/Vol] 94 mmol/L Low 98-107 [facility] Chloride measurement 94 mmol/L Low 98-107 [facility] Creatinine [Mass/Vol]Ordered By: Marquis Gomes on 12-17-2024 Serum or plasma creatinine measurement (mass/volume) 6.65 mg/dL High 0.70-1.30 [facility] Eosinophil percentageOrdered By: Marquis Gomes on 12-17-2024 Eosinophils/100 WBC (Bld) 5.3 % High 0-5 [facility] Eosinophil percentage 5.3 % High 0-5 [facility] Erythrocyte distribution wid th (RBC) [Entitic vol]Ordered By: Marquis Gomes on 12-17-2024 Erythrocyte distribution width standard deviation 69.6 fl High 35.1-43.9 [facility] Erythrocyte distribution wid th (RBC) [Ratio]Ordered By: Marquis Gomes on 12-17-2024 Erythrocyte distribution width ratio 17.7 % High 11.6-14.6 [facility] Erythrocyte distribution wid th ratioOrdered By: Marquis Gomes on 12-17-2024 Erythrocyte distribution width (RBC) [Ratio] 17.7 % High 11.6-14.6 [facility] Erythrocyte distribution wid th standard deviationOrdered By: Marquis Gomes on 12-17-2024 Erythrocyte distribution width (RBC) [Ratio] 69.6 fl High 35.1-43.9 [facility] Estimated glomerular filtrat ion rate (GFR) AmericanOrdered By: Marquis Gomes on 12-17-2024 Estimated glomerular filtration rate (GFR) 11 mL/min Low >60 [facility] Estimation of creatinine omkar aranceOrdered By: Marquis Gomes on 12-17-2024 Estimation of creatinine clearance 8.97 ml/min [facility] Glomerular filtration rate ( GFR) estimationOrdered By: Marquis Gomes on 12-17-2024 GFR/1.73 sq M.predicted among non-blacks MDRD (S/P/Bld) [Vol rate/Area] 9 mL/min/{1.73_m2} Low >60 [facility] Glomerular filtration rate (GFR) estimation 9 mL/min Low >60 [facility] Glucose measurementOrdered B y: Marquis Gomes on 12-17-2024 Glucose [Mass/Vol] 86 mg/dL 74-[address] [facility] [address] [facility] Glucose measurement 86 mg/dL 74-[address] [facility] [address] [facility] Hematocrit Auto (Bld) [Volum e fraction]Ordered By: Marquis Gomes on 12-17-2024 Hematocrit (Bld) [Volume fraction] 34.6 % Low 40-54 [facility] Automated blood hematocrit (percentage) 34.6 % Low 40-54 [facility] Hemoglobin measurementOrdere d By: Marquis Gomes on 12-17-2024 Hemoglobin (Bld) [Mass/Vol] 11.4 g/dL Low 13.0-16.5 [facility] Hemoglobin measurement 11.4 g/dL Low 13.0-16.5 [facility] Immature granulocytes/100 WB C Auto (Bld)Ordered By: Marquis Gomes on 12-17-2024 Immature granulocytes/100 WBC (Bld) 0.500 % 0.0-0.9 [facility] Automated immature granulocyte percentage 0.500 % 0.0-0.9 [facility] International normalized rat io (INR) calculationOrdered By: Marquis Gomes on 12-17-2024 International normalized ratio (INR) calculation 2.0 [facility] Lymphocytes Auto (Unsp spec) [#/Vol]Ordered By: Marquis Gomes on 12-17-2024 Absolute lymphocyte count 1.79 X10^3/uL 0.83-4.51 [facility] Lymphocytes/100 WBC Auto (Un sp spec)Ordered By: Marquis Gomes on 12-17-2024 Automated lymphocyte count as percentage of total leukocytes 19.3 % 19-41 [facility] MCV (RBC) [Entitic vol]Order ed By: Marquis Gomes on 12-17-2024 MCV (mean corpuscular volume) determination 105.8 fL High 80-94 [facility] MCV (mean corpuscular volume ) determinationOrdered By: Marquis Gomes on 12-17-2024 MCV (RBC) [Entitic vol] 105.8 fL High 80-94 [facility] Magnesium measurementOrdered By: Marquis Gomes on 12-17-2024 Magnesium [Mass/Vol] 2.2 mg/dL 1.6-2.6 [facility] Magnesium measurement 2.2 mg/dL 1.6-2.6 [facility] Manual differential comment [place] (Bld) [Interp]Ordered By: Marquis Gomes on 12-17-2024 Blood manual differential comment interpretation (narrative result) SCANNED [facility] Mean corpuscular hemoglobin (MCH) determinationOrdered By: Marquis Gomes on 12-17-2024 MCH (RBC) [Entitic mass] 34.9 pg High 27.0-32.0 [facility] Mean corpuscular hemoglobin (MCH) determination 34.9 pg High 27.0-32.0 [facility] Mean corpuscular hemoglobin concentration (MCHC) determinationOrdered By: Marquis Gomes on 12-17-2024 Mean corpuscular hemoglobin concentration (MCHC) determination 32.9 g/dL 32-36 [facility] Mean platelet volume determi nationOrdered By: Marquis Gomes on 12-17-2024 Mean platelet volume determination 9.7 fl 6.2-12.0 [facility] Monocyte percentageOrdered B y: Marquis Gomes on 12-17-2024 Monocytes/100 WBC (Bld) 11.0 % High 0-10 [facility] Monocyte percentage 11.0 % High 0-10 [facility] Neutrophil percentageOrdered By: Marquis Gomes on 12-17-2024 Neutrophils/100 WBC (Bld) 63.1 % 47-70 [facility] Neutrophil percentage 63.1 % 47-70 [facility] No Panel InformationOrdered By: Marquis Gomes on 12-17-2024 2+ [facility] Nucleated red blood cell per centageOrdered By: Marquis Gomes on 12-17-2024 Nucleated red blood cell percentage 0 % 0-5 [facility] Phosphorus measurementOrdere d By: Marquis Gomes on 12-17-2024 Phosphorus measurement 3.6 mg/dL 2.5-4.9 [facility] Platelet countOrdered By: Anshu Gomes on 12-17-2024 Platelets (Bld) [#/Vol] 218 10*3/uL 150-450 [facility] Platelet count 218 K/mm3 150-450 [facility] Platelet estimateOrdered By: Marquis Gomes on 12-17-2024 Platelets LM Ql (Bld) ADEQUATE ADEQ [facility] Platelets LM Ql (Bld)Ordered By: Marquis Gomes on 12-17-2024 Platelet estimate ADEQUATE ADEQ [facility] Potassium measurementOrdered By: Marquis Gomes on 12-17-2024 Potassium [Moles/Vol] 5.8 mmol/L High 3.5-5.1 [facility] Potassium measurement 5.8 mmol/L High 3.5-5.1 [facility] Prothrombin timeOrdered By: Marquis Gomes on 12-17-2024 PT Coag (PPP) [Time] 22.8 s High 11.7-14.9 [facility] Prothrombin time 22.8 SECONDS High 11.7-14.9 [facility] RBC Auto (Bld) [#/Vol]Ordere d By: Marquis Gomes on 12-17-2024 RBC (Bld) [#/Vol] 3.27 10*6/uL Low 4.6-6.2 [facility] Automated blood erythrocyte count 3.27 M/mm3 Low 4.6-6.2 [facility] Serum anion gap measurementO rdered By: Marquis Gomes on 12-17-2024 Serum anion gap measurement 11 5-15 [facility] Serum or plasma calcium khalif urement (mass/volume)Ordered By: Marquis Gomes on 12-17-2024 Calcium [Mass/Vol] 8.6 mg/dL 8.5-10.1 [facility] Serum or plasma creatinine m easurement (mass/volume)Ordered By: Marquis Gomes on 12-17-2024 Creatinine [Mass/Vol] 6.65 mg/dL High 0.70-1.30 [facility] Serum or plasma urea nitroge n measurement (mass/volume)Ordered By: Marquis Gomes on 12-17-2024 Urea nitrogen [Mass/Vol] 42 mg/dL High 7-18 [facility] Sodium levelOrdered By: Sourav Gomes on 12-17-2024 Sodium [Moles/Vol] 129 mmol/L Low 136-145 [facility] Sodium level 129 mmol/L Low 136-145 [facility] Urea nitrogen [Mass/Vol]Orde red By: Marquis Gomes on 12-17-2024 Serum or plasma urea nitrogen measurement (mass/volume) 42 mg/dL High 7-18 [facility] White blood cell (WBC) count Ordered By: Marquis Gomes on 12-17-2024 WBC (Bld) [#/Vol] 9.3 10*3/uL 4.4-11.0 [facility] White blood cell (WBC) count 9.3 K/mm3 4.4-11.0 [facility] ALP [Catalytic activity/Vol] Ordered By: Diego Reaves on 12-16-2024 Serum or plasma alkaline phosphatase measurement 449 U/L High 45-117 [facility] ALT [Catalytic activity/Vol] Ordered By: Diego Reaves on 12-16-2024 Serum or plasma alanine aminotransferase (ALT) measurement 66 U/L High 16-61 [facility] Absolute lymphocyte countOrd ered By: Diego Reaves on 12-16-2024 Lymphocytes Auto (Unsp spec) [#/Vol] 1.65 10*3/uL 0.83-4.51 [facility] Absolute neutrophil countOrd ered By: Diego Reaves on 12-16-2024 Absolute neutrophil count 5.4 X10^3/uL 2.0-7.7 [facility] Activated partial thrombopla stin time (aPTT) in platelet poor plasma by coagulation aOrdered By: Diego Reaves on 12-16-2024 aPTT Coag (PPP) [Time] 88.1 s High 24.1-36.2 [facility] Albumin [Mass/Vol]Ordered By : Diego Reaves on 12-16-2024 Serum or plasma albumin measurement (mass/volume) 3.5 g/dL 3.2-5.0 [facility] Automated lymphocyte count a s percentage of total leukocytesOrdered By: Diego Reaves on 12-16-2024 Lymphocytes/100 WBC Auto (Unsp spec) 19.7 % 19-41 [facility] Basophil percentageOrdered B y: Diego Reaves on 12-16-2024 Basophils/100 WBC (Bld) 1.1 % High 0-1 [facility] Basophil percentage 1.1 % High 0-1 [facility] Bilirubin directOrdered By: Diego Reaves on 12-16-2024 Bilirubin.direct [Mass/Vol] 0.44 mg/dL High 0.00-0.30 [facility] Bilirubin, totalOrdered By: Diego Reaves on 12-16-2024 Bilirubin [Mass/Vol] 0.80 mg/dL 0.20-1.00 [facility] Bilirubin, total 0.80 mg/dL 0.20-1.00 [facility] Bilirubin.direct [Mass/Vol]O rdered By: Diego Reaves on 12-16-2024 Bilirubin direct 0.44 mg/dL High 0.00-0.30 [facility] Blood urea nitrogen (BUN)/cr eatinine ratioOrdered By: Diego Reaves on 12-16-2024 Blood urea nitrogen (BUN)/creatinine ratio 6.7 RATIO Low 10-20 [facility] Calcium [Mass/Vol]Ordered By : Diego Reaves on 12-16-2024 Serum or plasma calcium measurement (mass/volume) 9.0 mg/dL 8.5-10.1 [facility] Carbon dioxide measurementOr dered By: Diego Reaves on 12-16-2024 CO2 [Moles/Vol] 29.0 mmol/L 21.0-32.0 [facility] Carbon dioxide measurement 29.0 mmol/L 21.0-32.0 [facility] Chloride measurementOrdered By: Diego Reaves on 12-16-2024 Chloride [Moles/Vol] 97 mmol/L Low 98-107 [facility] Chloride measurement 97 mmol/L Low 98-107 [facility] Creatinine [Mass/Vol]Ordered By: Diego Reaves on 12-16-2024 Serum or plasma creatinine measurement (mass/volume) 8.22 mg/dL High 0.70-1.30 [facility] Eosinophil percentageOrdered By: Diego Reaves on 12-16-2024 Eosinophils/100 WBC (Bld) 5.8 % High 0-5 [facility] Eosinophil percentage 5.8 % High 0-5 [facility] Erythrocyte distribution wid th (RBC) [Entitic vol]Ordered By: Diego Reaves on 12-16-2024 Erythrocyte distribution width standard deviation 67.9 fl High 35.1-43.9 [facility] Erythrocyte distribution wid th (RBC) [Ratio]Ordered By: Diego Reaves on 12-16-2024 Erythrocyte distribution width ratio 17.8 % High 11.6-14.6 [facility] Erythrocyte distribution wid th ratioOrdered By: Diego Reaves on 12-16-2024 Erythrocyte distribution width (RBC) [Ratio] 17.8 % High 11.6-14.6 [facility] Erythrocyte distribution wid th standard deviationOrdered By: Diego Reaves on 12-16-2024 Erythrocyte distribution width (RBC) [Ratio] 67.9 fl High 35.1-43.9 [facility] Erythrocyte morphology asses smentOrdered By: Diego Reaves on 12-16-2024 RBC morphology finding Nom (Bld) N CHROM NORMAL NORM C&C [facility] Estimated glomerular filtrat ion rate (GFR) AmericanOrdered By: Diego Reaves on 12-16-2024 Estimated glomerular filtration rate (GFR) 8 mL/min Low >60 [facility] Estimation of creatinine omkar aranceOrdered By: Diego Reaves on 12-16-2024 Estimation of creatinine clearance 7.26 ml/min [facility] Glomerular filtration rate ( GFR) estimationOrdered By: Diego Reaves on 12-16-2024 GFR/1.73 sq M.predicted among non-blacks MDRD (S/P/Bld) [Vol rate/Area] 7 mL/min/{1.73_m2} Low >60 [facility] Glomerular filtration rate (GFR) estimation 7 mL/min Low >60 [facility] Glucose measurementOrdered B y: Diego Reaves on 12-16-2024 Glucose [Mass/Vol] 101 mg/dL 74-106 [facility] Glucose measurement 101 mg/dL 74-[address] [address] [facility] Hematocrit Auto (Bld) [Volum e fraction]Ordered By: Diego Reaves on 12-16-2024 Hematocrit (Bld) [Volume fraction] 33.7 % Low 40-54 [facility] Automated blood hematocrit (percentage) 33.7 % Low 40-54 [facility] Hemoglobin measurementOrdere d By: Diego Reaves on 12-16-2024 Hemoglobin (Bld) [Mass/Vol] 11.1 g/dL Low 13.0-16.5 [facility] Hemoglobin measurement 11.1 g/dL Low 13.0-16.5 [facility] Immature granulocytes/100 WB C Auto (Bld)Ordered By: Diego Reaves on 12-16-2024 Immature granulocytes/100 WBC (Bld) 0.500 % 0.0-0.9 [facility] Automated immature granulocyte percentage 0.500 % 0.0-0.9 [facility] International normalized rat io (INR) calculationOrdered By: Diego Reaves on 12-16-2024 International normalized ratio (INR) calculation 1.9 [facility] Lymphocytes Auto (Unsp spec) [#/Vol]Ordered By: Diego Reaves on 12-16-2024 Absolute lymphocyte count 1.65 X10^3/uL 0.83-4.51 [facility] Lymphocytes/100 WBC Auto (Un sp spec)Ordered By: Diego Reaves on 12-16-2024 Automated lymphocyte count as percentage of total leukocytes 19.7 % 19-41 [facility] MCV (RBC) [Entitic vol]Order ed By: Diego Reaves on 12-16-2024 MCV (mean corpuscular volume) determination 104.7 fL High 80-94 [facility] MCV (mean corpuscular volume ) determinationOrdered By: Diego Reaves on 12-16-2024 MCV (RBC) [Entitic vol] 104.7 fL High 80-94 [facility] Macrocytes detectionOrdered By: Diego Reaves on 12-16-2024 [facility]Bld[facility] Mean corpuscular hemoglobin (MCH) determinationOrdered By: Diego Reaves on 12-16-2024 MCH (RBC) [Entitic mass] 34.5 pg High 27.0-32.0 [facility] Mean corpuscular hemoglobin (MCH) determination 34.5 pg High 27.0-32.0 [facility] Mean corpuscular hemoglobin concentration (MCHC) determinationOrdered By: Diego Reaves on 12-16-2024 Mean corpuscular hemoglobin concentration (MCHC) determination 32.9 g/dL 32-36 [facility] Mean platelet volume determi nationOrdered By: Diego Reaves on 12-16-2024 Mean platelet volume determination 9.0 fl 6.2-12.0 [facility] Monocyte percentageOrdered B y: Diego Reaves on 12-16-2024 Monocytes/100 WBC (Bld) 9.1 % 0-10 [facility] Monocyte percentage 9.1 % 0-10 [facility] Neutrophil percentageOrdered By: Diego Reaves on 12-16-2024 Neutrophils/100 WBC (Bld) 63.8 % 47-70 [facility] Neutrophil percentage 63.8 % 47-70 [facility] No Panel InformationOrdered By: Diego Reaves on 12-16-2024 52 U/L High 15-37 [facility] Nucleated red blood cell per centageOrdered By: Diego Reaves on 12-16-2024 Nucleated red blood cell percentage 0 % 0-5 [facility] Platelet countOrdered By: Costa Reaves on 12-16-2024 Platelets (Bld) [#/Vol] 214 10*3/uL 150-450 [facility] Platelet count 214 K/mm3 150-450 [facility] Platelet estimateOrdered By: Diego Reaves on 12-16-2024 Platelets LM Ql (Bld) ADEQUATE ADEQ [facility] Platelets LM Ql (Bld)Ordered By: Diego Reaves on 12-16-2024 Platelet estimate ADEQUATE [facility] Potassium measurementOrdered By: Diego Reaves on 12-16-2024 Potassium [Moles/Vol] 4.3 mmol/L 3.5-5.1 [facility] Potassium measurement 4.3 mmol/L 3.5-5.1 [facility] Prothrombin timeOrdered By: Diego Reaves on 12-16-2024 PT Coag (PPP) [Time] 22.6 s High 11.7-14.9 [facility] Prothrombin time 22.6 SECONDS High 11.7-14.9 [facility] RBC Auto (Bld) [#/Vol]Ordere d By: Diego Reaves on 12-16-2024 RBC (Bld) [#/Vol] 3.22 10*6/uL Low 4.6-6.2 [facility] Automated blood erythrocyte count 3.22 M/mm3 Low 4.6-6.2 [facility] RBC morphology finding Nom ( Bld)Ordered By: Diego Reaves on 12-16-2024 Erythrocyte morphology assessment N CHROM NORMAL NORM C&C [facility] Serum anion gap measurementO rdered By: Diego Reaves on 12-16-2024 Serum anion gap measurement 10 5-15 [facility] Serum globulin measurementOr dered By: Diego Reaves on 12-16-2024 Globulin (S) [Mass/Vol] 5.5 g/dL High 2.2-4.2 [facility] Serum globulin measurement 5.5 g/dL High 2.2-4.2 [facility] Serum or plasma alanine lorenzana otransferase (ALT) measurementOrdered By: Diego Reaves on 12-16-2024 ALT [Catalytic activity/Vol] 66 U/L High 16-61 [facility] Serum or plasma albumin khalif urement (mass/volume)Ordered By: Diego Reaves on 12-16-2024 Albumin [Mass/Vol] 3.5 g/dL 3.2-5.0 [facility] Serum or plasma alkaline guille sphatase measurementOrdered By: Diego Reaves on 12-16-2024 ALP [Catalytic activity/Vol] 449 U/L High 45-117 [facility] Serum or plasma calcium khalif urement (mass/volume)Ordered By: Diego Reaves on 12-16-2024 Calcium [Mass/Vol] 9.0 mg/dL 8.5-10.1 [facility] Serum or plasma creatinine m easurement (mass/volume)Ordered By: Diego Reaves on 12-16-2024 Creatinine [Mass/Vol] 8.22 mg/dL High 0.70-1.30 [facility] Serum or plasma urea nitroge n measurement (mass/volume)Ordered By: Diego Reaves on 12-16-2024 Urea nitrogen [Mass/Vol] 55 mg/dL High 7-18 [facility] Sodium levelOrdered By: Diego Reaves on 12-16-2024 Sodium [Moles/Vol] 135 mmol/L Low 136-145 [facility] Sodium level 135 mmol/L Low 136-145 [facility] Total proteinOrdered By: Cristian Reaves on 12-16-2024 Protein [Mass/Vol] 9.0 g/dL High 6.4-8.2 [facility] Total protein 9.0 g/dL High 6.4-8.2 [facility] Urea nitrogen [Mass/Vol]Orde red By: Diego Reaves on 12-16-2024 Serum or plasma urea nitrogen measurement (mass/volume) 55 mg/dL High 7-18 [facility] White blood cell (WBC) count Ordered By: Diego Reaves on 12-16-2024 WBC (Bld) [#/Vol] 8.4 10*3/uL 4.4-11.0 [facility] White blood cell (WBC) count 8.4 K/mm3 4.4-11.0 [facility] aPTT Coag (PPP) [Time]Ordere d By: Diego Reaves on 12-16-2024 Activated partial thromboplastin time (aPTT) in platelet poor plasma by coagulation a 88.1 Seconds High 24.1-36.2 [facility] No Panel Informationon 12-15 2.5 [facility] No Panel Informationon 12-08 2.5 [facility] No Panel Informationon 12-03 2.5 [facility] No Panel Informationon 12-01 4.5 High [facility] ALP [Catalytic activity/Vol] Ordered By: Timmy Miranda on 11-25-2024 Serum or plasma alkaline phosphatase measurement 397 U/L High 45-117 [facility] ALT [Catalytic activity/Vol] Ordered By: Timmy Miranda on 11-25-2024 Serum or plasma alanine aminotransferase (ALT) measurement 83 U/L High 16-61 [facility] Albumin Elph [Mass/Vol]Order ed By: Timmy Miranda on 11-25-2024 Serum or plasma albumin measurement by electrophoresis (mass/volume) 4.1 g/dL 2.9-4.4 [facility] Albumin [Mass/Vol]Ordered By : Timmy Miranda on 11-25-2024 Serum or plasma albumin measurement (mass/volume) 3.6 g/dL 3.2-5.0 [facility] Albumin to globulin ratioOrd ered By: Timmy Miranda on 11-25-2024 Albumin to globulin ratio 0.6 RATIO Low 0.9-2.4 [facility] Alpha 1 globulin Elph [Mass/ Vol]Ordered By: Timmy Miranda on 11-25-2024 Serum or plasma alpha 1 globulin measurement by electrophoresis (mass/volume) 0.4 g/dL 0.0-0.4 [facility] Serum or plasma alpha 1 globulin measurement by electrophoresis (mass/volume) 0.8 g/dL 0.4-1.0 [facility] Beta globulin Elph [Mass/Vol ]Ordered By: Timmy Miranda on 11-25-2024 Serum or plasma beta globulin measurement by electrophoresis (mass/volume) 1.3 g/dL 0.7-1.3 [facility] Bilirubin, totalOrdered By: Timmy Miranda on 11-25-2024 Bilirubin, total 1.00 mg/dL 0.20-1.00 [facility] Blood urea nitrogen (BUN)/cr eatinine ratioOrdered By: Timmy Miranda on 11-25-2024 Blood urea nitrogen (BUN)/creatinine ratio 7.0 RATIO Low 10-20 [facility] Calcium [Mass/Vol]Ordered By : Timmy iMranda on 11-25-2024 Serum or plasma calcium measurement (mass/volume) 9.4 mg/dL 8.5-10.1 [facility] Carbon dioxide measurementOr dered By: Timmy Miranda on 11-25-2024 Carbon dioxide measurement 28.0 mmol/L 21.0-32.0 [facility] Chloride measurementOrdered By: Timmy Miranda 11-25-2024 Chloride measurement 94 mmol/L Low 98-107 [facility] Creatinine [Mass/Vol]Ordered By: Timmy Miranda 11-25-2024 Serum or plasma creatinine measurement (mass/volume) 6.61 mg/dL High 0.70-1.30 [facility] Estimated glomerular filtrat ion rate (GFR) AmericanOrdered By: Timmy Miranda on 11-25-2024 Estimated glomerular filtration rate (GFR) 11 mL/min Low >60 [facility] Gamma globulin Elph [Mass/Vo l]Ordered By: Timmy Miranda on 11-25-2024 Serum or plasma gamma globulin measurement by electrophoresis (mass/volume) 2.2 g/dL High 0.4-1.8 [facility] Globulin (S) [Mass/Vol]Order ed By: Timmy Miranda on 11-25-2024 Serum globulin measurement (mass/volume) 4.7 g/dL High 2.2-3.9 [facility] Glomerular filtration rate ( GFR) estimationOrdered By: Timmy Miranda on 11-25-2024 Glomerular filtration rate (GFR) estimation 9 mL/min Low >60 [facility] Glucose measurementOrdered B y: Timmy Miranda on 11-25-2024 Glucose measurement 107 mg/dL High 74-106 [facility] IgA [Mass/Vol]Ordered By: Ra john Miranda on 11-25-2024 Serum or plasma IgA measurement (mass/volume) 183 mg/dL 61-437 [facility] IgG [Mass/Vol]Ordered By: Ra john Miranda on 11-25-2024 Serum or plasma IgG measurement (mass/volume) 1583 mg/dL 603-1613 [facility] Immunoglobulin M measurement Ordered By: Timmy Miranda on 11-25-2024 Immunoglobulin M measurement 982 mg/dL High 15-143 [facility] No Panel InformationOrdered By: Timmy Miranda on 11-25-2024 82 U/L High 15-37 [facility] Potassium measurementOrdered By: Timmy Miranda on 11-25-2024 Potassium measurement 4.2 mmol/L 3.5-5.1 [facility] Protein Fractions Immunofixa tion [place] [Interp]Ordered By: Timmy Miranda on 11-25-2024 Interpretation of serum or plasma protein pattern by immunofixation (narrative result Not Observed g/dL Not Observed [facility] Protein [Mass/Vol]Ordered By : Timmy Miranda on 11-25-2024 Serum or plasma protein measurement (mass/volume) 8.8 g/dL High 6.0-8.5 [facility] Serum albumin/globulin ratio Ordered By: Timmy Miranda on 11-25-2024 Serum albumin/globulin ratio 0.9 0.7-1.7 [facility] Serum anion gap measurementO rdered By: Timmy Miranda on 11-25-2024 Serum anion gap measurement 10 5-15 [facility] Serum or plasma immunoelectr ophoresis interpretation (nominal result)Ordered By: Timmy Miranda on 11-25-2024 Serum or plasma immunoelectrophoresis interpretation (nominal result) Comment . [facility] Sodium levelOrdered By: Berenice leyvajason Miranda on 11-25-2024 Sodium level 131 mmol/L Low 136-145 [facility] Total proteinOrdered By: Andres alves Leydi on 11-25-2024 Total protein 9.8 g/dL High 6.4-8.2 [facility] Urea nitrogen [Mass/Vol]Orde red By: Timmy Miranda on 11-25-2024 Serum or plasma urea nitrogen measurement (mass/volume) 46 mg/dL High 7-18 [facility] Venous blood ammonia measure mentOrdered By: Timmy Miranda on 11-25-2024 Venous blood ammonia measurement 74.0 umol/L High 11-32 [facility] No Panel Informationon 11-24 3.3 [facility] No Panel Informationon 11-17 3.6 High [facility] No Panel Informationon 11-03 2.7 [facility] No Panel Informationon 10-27 3.1 [facility] AFP TUMOR MARKERon AFP Tumor Marker 2.6 ng/mL Normal <8.1 [facility] Comment on above: Result Comment: This test was performed on the [employer] Immunoassay platform by [employer] which is a two-site sandwich chemiluminescent immunoassay. It is important to note that assays using different manufacturers and/or methods may not be comparable. Performed By: #### X M #### [facility] (DEFAULT) [address] [address] CBC AND ELECTRONIC DIFFon Basophils (Bld) [#/Vol] 0.07 10*3/uL Normal 0.00-0.09 [facility] Comment on above: Performed By: #### X M #### [facility] (DEFAULT) [address] [address] Basophils/100 WBC (Bld) 0.7 % Normal O [facility] Comment on above: Performed By: #### X M #### [facility] (DEFAULT) [address] [address] DIFF STATUS Electronic Differential Normal [facility] Comment on above: Performed By: #### X M #### [facility] (DEFAULT) [address] [address] Eosinophils (Bld) [#/Vol] 0.45 10*3/uL Normal 0.00-0.48 [facility] Comment on above: Performed By: #### X M #### [facility] (DEFAULT) [address] [place] [address] Eosinophils/100 WBC (Bld) 4.5 % Normal [facility] Comment on above: Performed By: #### X M #### [facility] (DEFAULT) [address] [place] [address] Hematocrit (Bld) [Volume fraction] 36.5 % Low 39.6-48.8 [facility] Comment on above: Performed By: #### X M #### [facility] (DEFAULT) [address] [place] [address] Hemoglobin (Bld) [Mass/Vol] 11.5 g/dL Low 13.4-16.8 [facility] Comment on above: Performed By: #### X M #### [facility] (DEFAULT) [address] [place] [address] Immature Grans % 0.4 % Normal [facility] Comment on above: Performed By: #### X M #### [facility] (DEFAULT) [address] [place] [address] Immature Grans Absolute 0.04 K/uL Normal <=0.07 O [facility] Comment on above: Performed By: #### X M #### [facility] (DEFAULT) [address] [place] [address] Lymphocytes (Bld) [#/Vol] 1.74 10*3/uL Normal 0.83-3.57 [facility] Comment on above: Performed By: #### X M #### [facility] (DEFAULT) [address] [place] [address] Lymphocytes/100 WBC (Bld) 17.6 % Normal [facility] Comment on above: Performed By: #### X M #### [facility] (DEFAULT) [address] [place] [address] MCV (RBC) [Entitic vol] 106.7 fL High 79.0-94.5 [facility] Comment on above: Performed By: #### X M #### [facility] (DEFAULT) [address] [place] [address] Mean Cell Hgb 33.6 pg High 26.1-33.3 [facility] Comment on above: Performed By: #### X M #### [facility] (DEFAULT) [address] [place] [address] Mean Cell Hgb Conc 31.5 g/dL Low 31.9-36.5 [facility] Comment on above: Performed By: #### X M #### [facility] (DEFAULT) [address] [place] [address] Monocytes (Bld) [#/Vol] 0.98 10*3/uL High 0.24-0.93 [facility] Comment on above: Performed By: #### X M #### [facility] (DEFAULT) [address] [place] [address] Monocytes/100 WBC (Bld) 9.9 % Normal [facility] Comment on above: Performed By: #### X M #### [facility] (DEFAULT) [address] [place] [address] Nucleated RBC 0.0 /100 WBC Normal <=0.2 [facility] Comment on above: Performed By: #### X M #### [facility] (DEFAULT) [address] [place] [address] Platelet mean volume (Bld) [Entitic vol] 11.2 fL Normal 8.7-12.3 [facility] Comment on above: Performed By: #### X M #### [facility] (DEFAULT) [address] [place] [address] Platelets (Bld) [#/Vol] 180 10*3/uL Normal 146-337 [facility] Comment on above: Performed By: #### X M #### [facility] (DEFAULT) [address] [place] [address] RBC (Bld) [#/Vol] 3.42 10*6/uL Low 4.38-5.83 [facility] Comment on above: Performed By: #### X M #### [facility] (DEFAULT) [address] [place] [address] RBC Distribution 17.6 % High 10.9-14.3 [facility] Comment on above: Performed By: #### X M #### [facility] (DEFAULT) [address] [place] [address] Segs + Bands Auto 66.9 % Normal [facility] Comment on above: Performed By: #### X M #### [facility] (DEFAULT) [address] [place] [address] Segs + Bands,Absolute Auto 6.63 K/uL High 1.57-6.19 [facility] Comment on above: Performed By: #### X M #### [facility] (DEFAULT) [address] [place] [address] WBC (Bld) [#/Vol] 9.91 10*3/uL Normal 3.73-10.10 [facility] Comment on above: Performed By: #### X M #### [facility] (DEFAULT) [address] [place] [address] CHEM 6 (LYTES, BUN CREA)on 1 12-23-2023 Anion gap [Moles/Vol] 19 mmol/L High 7 - 17 mmol/L [facility] Chloride [Moles/Vol] 92 mmol/L Low 98 - 10 8 mmol/L [facility] CO2 [Moles/Vol] 31 mmol/L 21 - 31 mmol/L [facility] Creatinine [Mass/Vol] 7.96 mg/dL High 0.70 - 1.30 mg/dL [facility] eGFR, CKD-EPI, Male 7 Low - PINF [facility] Comment on above: Reported eGFR is bas ed on the CKD-EPI 2020 equation using creatinine, age, and sex. Potassium [Moles/Vol] 3.7 mmol/L 3.5 - 5.0 mmol/L [facility] Sodium [Moles/Vol] 138 mmol/L 135 - 145 mmol/L [facility] Urea nitrogen [Mass/Vol] 57 mg/dL High 7 - 25 mg/dL [facility] Urea nitrogen/Creatinine [Mass ratio] 7 mg/mg [facility] Anion gap [Moles/Vol] 19 mmol/L High 7-17 [facility] Comment on above: Performed By: #### S URGP #### [facility] (DEFAULT) [address] [address] Chloride [Moles/Vol] 92 mmol/L Low 98-108 [facility] Comment on above: Performed By: #### S URGP #### [facility] (DEFAULT) [address] [place] [address] CO2 [Moles/Vol] 31 mmol/L Normal 21-31 [facility] Comment on above: Performed By: #### S URGP #### [facility] (DEFAULT) [address] [address] Creatinine [Mass/Vol] 7.96 mg/dL High 0.70-1.30 [facility] Comment on above: Performed By: #### S URGP #### [facility] (DEFAULT) [address] [address] GFR/1.73 sq M.predicted among non-blacks MDRD (S/P/Bld) [Vol rate/Area] 7 mL/min/{1.73_m2} Low >=60 [facility] Comment on above: Result Comment: Repo rted eGFR is based on the CKD-EPI 2020 equation using creatinine, age, and sex. Performed By: #### S URGP #### [facility] (DEFAULT) [address] [place] [address] Potassium [Moles/Vol] 3.7 mmol/L Normal 3.5-5.0 [facility] Comment on above: Performed By: #### S URGP #### [facility] (DEFAULT) [address] [place] [address] Sodium [Moles/Vol] 138 mmol/L Normal 135-145 [facility] Comment on above: Performed By: #### S URGP #### [facility] (DEFAULT) [address] [place] [address] Urea nitrogen [Mass/Vol] 57 mg/dL High 7-25 [facility] Comment on above: Performed By: #### S URGP #### [facility] (DEFAULT) [address] [place] [address] Urea nitrogen/Creatinine [Mass ratio] 7 mg/mg Normal [facility] Comment on above: Performed By: #### S URGP #### U [facility] (DEFAULT) [address] [place] [address] HEPATIC FUNCTION PANELon Albumin [Mass/Vol] 4.4 g/dL 3.5 - 5.0 g/dL [facility] ALP [Catalytic activity/Vol] 410 U/L High 32 - 126 U/L [facility] ALT [Catalytic activity/Vol] 64 U/L High 10 - 52 U/L [facility] AST [Catalytic activity/Vol] 64 U/L High 10 - 39 U/L [facility] Bilirubin [Mass/Vol] 1.0 mg/dL [facility] mg/dL [facility] Bilirubin.direct [Mass/Vol] 0.4 mg/dL High NINF - 0.3 mg/dL [facility] Protein [Mass/Vol] 9.0 g/dL High 6.4 - 8.3 g/dL [facility] Albumin [Mass/Vol] 4.4 g/dL Normal 3.5-5.0 [facility] Comment on above: Performed By: #### S URGP #### [facility] (DEFAULT) [address] [place] [address] ALP [Catalytic activity/Vol] 410 U/L High 32-126 [facility] Comment on above: Performed By: #### S URGP #### [facility] (DEFAULT) [address] [place] [address] ALT [Catalytic activity/Vol] 64 U/L High 10-52 [facility] Comment on above: Performed By: #### S URGP #### [facility] (DEFAULT) [address] [place] [address] AST [Catalytic activity/Vol] 64 U/L High 10-39 [facility] Comment on above: Performed By: #### S URGP #### [facility] (DEFAULT) [address] [place] [address] Bilirubin [Mass/Vol] 1.0 mg/dL Normal <1.5 [facility] Comment on above: Performed By: #### S URGP #### [facility] (DEFAULT) [address] [place] [address] Bilirubin.indirect [Mass/Vol] 0.4 mg/dL High <0.3 [facility] Comment on above: Performed By: #### S URGP #### [facility] (DEFAULT) [address] [place] [address] Protein [Mass/Vol] 9.0 g/dL High 6.4-8.3 [facility] Comment on above: Performed By: #### S URGP #### [facility] (DEFAULT) [address] [place] [address] No Panel Informationon 10-22 Interpretation and review of laboratory results Abnormal [facility] PROTIME-INRon 10-22-2024 INR Coag (Bld) [Relative time] 2.1 {INR} High 0.9 - 1.1 [facility] Interpretation and review of laboratory results Abnormal [facility] PT Coag (PPP) [Time] 23.5 s High [facility] INR Coag (PPP) [Relative time] 2.1 {INR} High 0.9-1.1 [facility] Comment on above: Performed By: #### X M #### [facility] (DEFAULT) [address] [place] [address] PT Coag (PPP) [Time] 23.5 s High 11.9-14.2 [facility] Comment on above: Performed By: #### X M #### [facility] (DEFAULT) [address] [place] [address] No Panel Informationon 10-20 3.9 High [facility] Alanine aminotransferase (AL T) assayOrdered By: Karthikeyan Turner on 05-28-2024 ALT [Catalytic activity/Vol] 64 U/L High 16-61 [facility] Alkaline phosphataseOrdered By: Karthikeyan Turner on 05-28-2024 ALP [Catalytic activity/Vol] 359 U/L High 45-117 [facility] Bilirubin, totalOrdered By: Karthikeyan Turner on 05-28-2024 Bilirubin [Mass/Vol] 0.80 mg/dL 0.20-1.00 [facility] Carbon dioxide measurementOr dered By: Karthikeyan Turner on 05-28-2024 CO2 [Moles/Vol] 28.0 mmol/L 21.0-32.0 [facility] Chloride measurementOrdered By: Karthikeyan Turner on 05-28-2024 Chloride [Moles/Vol] 93 mmol/L Low 98-107 [facility] Glomerular filtration rate ( GFR) estimationOrdered By: Karthikeyan Turner on 05-28-2024 GFR/1.73 sq M.predicted among non-blacks MDRD (S/P/Bld) [Vol rate/Area] 7 mL/min/{1.73_m2} Low >60 [facility] Glucose measurementOrdered B y: Karthikeyan Turner on 05-28-2024 Glucose [Mass/Vol] 128 mg/dL High 74-106 [facility] No Panel InformationOrdered By: Karthikeyan Turner on 05-28-2024 RARE [facility] 63 U/L High 15-37 [facility] Potassium measurementOrdered By: Karthikeyan Turner on 05-28-2024 Potassium [Moles/Vol] 3.5 mmol/L 3.5-5.1 [facility] Serum albumin measurementOrd ered By: Karthikeyan Turner on 05-28-2024 Albumin [Mass/Vol] 3.4 g/dL 3.2-5.0 [facility] Serum globulin measurementOr dered By: Karthikeyan Turner on 05-28-2024 Globulin (S) [Mass/Vol] 5.8 g/dL High 2.2-4.2 W [facility] Serum or plasma calcium khalif urement (mass/volume)Ordered By: Karthikeyan Turner on 05-28-2024 Calcium [Mass/Vol] 10.1 mg/dL 8.5-10.1 [facility] Serum or plasma creatinine m easurement (mass/volume)Ordered By: Karthikeyan Turner on 05-28-2024 Creatinine [Mass/Vol] 8.46 mg/dL High 0.70-1.30 [facility] Serum or plasma urea nitroge n measurement (mass/volume)Ordered By: Karthikeyan Turner on 05-28-2024 Urea nitrogen [Mass/Vol] 60 mg/dL High 7-18 [facility] Sodium levelOrdered By: Lebron Turner on 05-28-2024 Sodium [Moles/Vol] 133 mmol/L Low 136-145 [facility] Total proteinOrdered By: Lul Turner on 05-28-2024 Protein [Mass/Vol] 9.2 g/dL High 6.4-8.2 [facility] CBC AND ELECTRONIC DIFFon Basophils (Bld) [#/Vol] 0.09 10*3/uL 0.00 - 0.09 K/uL [facility] Basophils/100 WBC (Bld) 0.8 % O [facility] Differential cell count method Nom (Bld) Electronic Differential [facility] Eosinophils (Bld) [#/Vol] 0.48 10*3/uL 0.00 - 0.48 K/uL [facility] Eosinophils/100 WBC (Bld) 4.3 % [facility] Erythrocyte distribution width (RBC) [Ratio] 17.2 % High 10.9 - 14.3 % [facility] Hematocrit (Bld) [Volume fraction] 38.7 % Low 39.6 - 48.8 % [facility] Hemoglobin (Bld) [Mass/Vol] 12.7 g/dL Low 13.4 - 16.8 g/dL [facility] Immature granulocytes (Bld) [#/Vol] 0.08 10*3/uL High NINF - 0.07 K/uL [facility] Immature granulocytes/100 WBC (Bld) 0.7 % [facility] Interpretation and review of laboratory results Abnormal [facility] Lymphocytes (Bld) [#/Vol] 2.40 10*3/uL 0.83 - 3.57 K/uL [facility] Lymphocytes/100 WBC (Bld) 21.7 % [facility] MCH (RBC) [Entitic mass] 34.9 pg High 26.1 - 33.3 pg [facility] MCHC (RBC) [Mass/Vol] 32.8 g/dL 31.9 - 36.5 g/dL [facility] MCV (RBC) [Entitic vol] 106.3 fL High 79.0 - 94.5 fL [facility] Comment on above: Results inconsistent with previous results Monocytes (Bld) [#/Vol] 1.24 10*3/uL High 0.24 - 0.93 K/uL [facility] Monocytes/100 WBC (Bld) 11.2 % O [facility] Neutrophils (Bld) [#/Vol] 6.79 10*3/uL High 1.57 - 6.19 K/uL [facility] Nucleated RBC/100 WBC (Bld) [Ratio] 0.0 % NINF [facility] Platelet mean volume (Bld) [Entitic vol] 9.3 fL 8.7 - 12.3 fL [facility] Platelets (Bld) [#/Vol] 247 10*3/uL 146 - 337 K/uL [facility] RBC (Bld) [#/Vol] 3.64 10*6/uL Low [facility] Segmented neutrophils/100 WBC (Bld) 61.3 % [facility] WBC (Bld) [#/Vol] 11.08 10*3/uL High 3.73 - 10 .10 K/uL [facility] CHEM 7 (LYTES,BUN,CREA,GLUC) Ordered By: Jenni Espinal on 04-02-2024 Anion gap [Moles/Vol] 24 mmol/L High 7 - 17 mmol/L [facility] Chloride [Moles/Vol] 91 mmol/L Low 98 - 10 8 mmol/L [facility] CO2 [Moles/Vol] 25 mmol/L 21 - 31 mmol/L [facility] Creatinine [Mass/Vol] 7.94 mg/dL High 0.70 - 1.30 mg/dL [facility] eGFR, CKD-EPI, Male 7 Low - PINF [facility] Comment on above: Reported eGFR is bas ed on the CKD-EPI 2020 equation using creatinine, age, and sex. Glucose [Mass/Vol] 94 mg/dL 70 - 99 mg/dL [facility] Interpretation and review of laboratory results Abnormal [facility] Osmolality Calc [Osmolality] 300 [facility] Potassium [Moles/Vol] 4.0 mmol/L 3.5 - 5.0 mmol/L [facility] Sodium [Moles/Vol] 136 mmol/L 135 - 145 mmol/L [facility] Urea nitrogen [Mass/Vol] 54 mg/dL High 7 - 25 mg/dL [facility] Urea nitrogen/Creatinine [Mass ratio] 7 mg/mg [facility] PT,INR,PTTon 04-02-2024 aPTT Coag (PPP) [Time] 56.0 s High OS [facility] INR Coag (Bld) [Relative time] 1.7 {INR} High 0.9 - 1.1 [facility] Interpretation and review of laboratory results Abnormal [facility] PT Coag (PPP) [Time] 19.9 s High [facility] US Heart limitedOrdered By: Jeff Grullon on 03-24-2024 Avg e' pk christie 0.10 m/s [facility] Work Phone: Avg E/e' ratio 12.35 [facility] Work Phone: Body surface area Derived from formula 1.89 m2 [facility]: BP EF 49 % [facility] Work Phone: E wave decelartion time 295.09 msec [facility] Work Phone: e' lateral pk christie 0.1095 m/s [facility]: e' lateral pk christie 0.11 m/s [facility] Work [facility]: e' septal pk christie 0.0900 m/s [facility] Work [facility]: e' septal pk christie 0.09 m/s [facility] Work Phone: E/e' lateral ratio 11.14 [facility] Work Phone: E/e' septal ratio 13.56 [facility] Work Phone: EF SP 2CH [address] [facility] Work Phone: EF SP 4CH [address] [facility] Work Phone: EST RAP 3.00 mmHg [facility] Work Phone: EST RVSP 36 mmHg [facility] Work Phone: FS 32 % 28 - 44 % [facility] Work Phone: IVC ostium 1.88 cm [facility] Work Phone: IVS 1.08 cm [facility] Work Phone: LA area 4CH 22.62 cm2 [facility] Work Phone: LA ESV SP 4CH (MOD) 77 mL [facility] Work Phone: LA size 5.04 cm [facility] Work Phone: LEFT ATRIAL DIAMETER INDEX 2.67 cm/m2 [facility] Work Phone: LV EDV BP 110 mL [facility] Work Phone: LV EDV SP 2CH 113 mL [facility] Work Phone: LV EDV SP 4CH 103 mL [facility] Work Phone: LV ESV BP 56 mL [facility] Work Phone: LV ESV SP 2CH 57 mL [facility] Work Phone: LV ESV SP 4CH 53 mL [facility] Work Phone: LV mass 272.55 g [facility] Work Phone: LV Mass Index 144.2 g/m2 [facility] Work Phone: LV RWT 0.33 [facility] Work Phone: LV stroke volume BP (ml) 54 mL [facility] Work Phone: LV stroke volume index BP 28.57 mL/m2 [facility] Work Phone: LVIDD 6.15 cm [facility] Work Phone: LVIDS 4.19 cm [facility] Work Phone: LVOT area 3.87 cm2 [facility] Work Phone: LVOT diameter 2.22 cm [facility] Work Phone: MV pk E christie 1.22 m/s [facility] Work Phone: MV stenosis pressure 1/2 time 85.57 ms [facility] Work Phone: MV valve area p 1/2 method 2.57 cm2 [facility] Work Phone: [facility] ECHO LV BIPLANE SYSTOLIC VOLUME INDEX 29.63 mL/m2 [facility] Work Phone: [facility] ECHO LV BP DIASTOLIC VOLUME INDEX 58.20 mL/m2 [facility] Work Phone: PW 1.01 cm [facility] Work Phone: RA vol index 4CH (MOD) 26.98 mL/m2 [facility] Work Phone: Right atrium volume 4 chamber method of disks [facility]: RV S' 8.41 cm/s [facility] Work Phone: TR pk grad 33 mmHg [facility] Work Phone: TR pk christie 2.88 m/s [facility] Work Phone: [facility] Work Phone: Heart limitedon 4 Left Ventricle: Fede france size is mildly enlarged. Increased wall thickness. Mild concentric hypertrophy. Global hypokinesis. Abnormal septal motion consistent with right ventricular pacing. Ejection fraction is mildly reduced (45 - 50%). Unable to assess diastolic function. Right Ventricle: Chamber size is normal. Systolic function is normal. Device wire is present. Left Atrium: Chamber size is enlarged. Right Atrium: Chamber size is normal. A device wire is present. Aortic Valve: [address] Edward mechanical valve. Stable appearing. Mitral Valve: Moderate anterior and posterior leaflet thickening. Leaflet mobility is restricted. A prosthetic 28 mm Brday annular ring is present. Tricuspid Valve: Mild regurgitation. Estimated right ventricular systolic pressure is 36 mmHg. Pulmonary artery/right heart systolic pressure is elevated. (Mild) Comment: Limited Study. Technically difficult study. Left Ventricle Chamber size is mildly enlarged. Increased wall thickness. Mild concentric hypertrophy. Global hypokinesis. Abnormal septal motion consistent with right ventricular pacing. The ejection fraction is 49%. Ejection fraction is mildly reduced (45 - 50%). Unable to assess diastolic function. Right Ventricle Chamber size is normal. Segmental wall motion is normal. Systolic function is normal. Device wire is present. Left Atrium Chamber size is enlarged. Right Atrium Chamber size is normal. A device wire is present. IVC/SVC The inferior vena cava is normal in size. Mitral Valve Moderate anterior and posterior leaflet thickening. Leaflet mobility is restricted. A prosthetic 28 mm Brady annular ring is present. Tricuspid Valve Normal leaflets. Leaflet mobility is normal. Mild regurgitation. Pulmonary artery/right heart systolic pressure is elevated. Estimated right ventricular systolic pressure is 36 mmHg. Aortic Valve [address] Edward mechanical valve. Stable appearing. Pulmonic Valve Pulmonic valve not well visualized. Pericardium No pericardial effusion. Septum The atrial septum is normal. Pulmonary Artery Pulmonary artery not well visualized. Aorta Aorta not assessed. Study Details A limited echocardiography study (including microbubbles) was performed. Overall study quality was poor. Contrast indication: evaluation of left ventricle contiguous segments and evaluation of left ventricle apex. Study limitations include technically difficult study. Imaging system used: Siemens. Clinical history: Prior to device changeout, scheduled 04/02. Asses EF to confirm if device upgrade is needed.. Indications Indications for study: LV function, abnormal ecg and atrial fib / atrial flutter. Wall Scoring Score Index: 2.00 The left ventricular wall motion is globally hypokinetic. [facility] Radiology Study observation (narrative) [facility] No Panel Informationon 12-24 INR International Normalized Ratio 2.7 [facility] No Panel Informationon 12-17 INR International Normalized Ratio 2.3 [facility] No Panel Informationon 12-10 INR International Normalized Ratio 2.6 [facility] AFP TUMOR MARKEROrdered By: Juan Carlos Calderon on 12-05-2023 AFP.tumor marker [Mass/Vol] ng/mL NINF - 8.1 ng/mL [facility] Comment on above: This test was perfor med on the [employer] Immunoassay platform by [employer] which is a two-site sandwich chemiluminescent immunoassay. It is important to note that assays using different manufacturers and/or methods may not be comparable. Interpretation and review of laboratory results Normal [facility] CHEM 6 (LYTES, BUN CREA)on 0 12-05-2023 Anion gap [Moles/Vol] 21 mmol/L High 7 - 17 mmol/L [facility] Chloride [Moles/Vol] 91 mmol/L Low 98 - 10 8 mmol/L [facility] CO2 [Moles/Vol] 28 mmol/L 21 - 31 mmol/L [facility] Creatinine [Mass/Vol] 8.10 mg/dL High 0.70 - 1.30 mg/dL [facility] eGFR, CKD-EPI, Male 6 Low - PINF [facility] Comment on above: Reported eGFR is bas ed on the CKD-EPI 2020 equation using creatinine, age, and sex. Potassium [Moles/Vol] 4.4 mmol/L 3.5 - 5.0 mmol/L [facility] Sodium [Moles/Vol] 136 mmol/L 135 - 145 mmol/L [facility] Urea nitrogen [Mass/Vol] 57 mg/dL High 7 - 25 mg/dL [facility] Urea nitrogen/Creatinine [Mass ratio] 7 mg/mg [facility] HEPATIC FUNCTION PANELon Albumin [Mass/Vol] 4.4 g/dL 3.5 - 5.0 g/dL [facility] ALP [Catalytic activity/Vol] 337 U/L High 32 - 126 U/L [facility] ALT [Catalytic activity/Vol] 56 U/L High 10 - 52 U/L [facility] AST [Catalytic activity/Vol] 63 U/L High 10 - 39 U/L [facility] Bilirubin [Mass/Vol] 1.0 mg/dL [facility] mg/dL [facility] Bilirubin.direct [Mass/Vol] 0.3 mg/dL High NINF - 0.3 mg/dL [facility] Protein [Mass/Vol] 9.3 g/dL High 6.4 - 8.3 g/dL [facility] No Panel Informationon 12-05 Interpretation and review of laboratory results Abnormal [facility] PROTIME-INRon 12-05-2023 INR Coag (Bld) [Relative time] 1.8 {INR} High 0.9 - 1.1 [facility] Interpretation and review of laboratory results Abnormal [facility] PT Coag (PPP) [Time] 20.8 s High [facility] No Panel Informationon 12-03 INR International Normalized Ratio 2.9 [facility] No Panel Informationon 11-26 INR International Normalized Ratio 3.2 [facility] No Panel Informationon 11-19 INR International Normalized Ratio 3.8 [facility] No Panel Informationon 11-12 INR International Normalized Ratio 2.7 [facility] No Panel Informationon 11-05 INR International Normalized Ratio 2.7 [facility] No Panel Informationon 10-29 INR International Normalized Ratio 3.1 [facility] No Panel Informationon 10-22 INR International Normalized Ratio 3.7 [facility] No Panel Informationon 10-15 INR International Normalized Ratio 3.1 [facility] No Panel Informationon 10-08 INR International Normalized Ratio 4.0 [facility] Laboratory - Chemistry and C hemistry - challengeOrdered By: Castro Ferrara on 10-03-2023 Cobalamin (Vitamin B12) [Mass/Vol] 905 pg/mL 211-911 [facility] Free T4 [Mass/Vol] 1.01 ng/dL 0.76-1.46 [facility] No Panel InformationOrdered By: Castro Ferrara on 10-03-2023 Thyroid Stimulating Hormone (TSH) 4.40 uIU/mL 0.358-3.74 [facility] No Panel Informationon 10-01 INR International Normalized Ratio 3.7 [facility] No Panel Informationon 09-24 INR International Normalized Ratio 2.2 [facility] No Panel Informationon 09-17 INR International Normalized Ratio 3.3 [facility] No Panel Informationon 09-10 INR International Normalized Ratio 2.9 [facility] No Panel Informationon 09-03 INR International Normalized Ratio 2.2 [facility] No Panel Informationon 08-27 INR International Normalized Ratio 4.3 [facility] No Panel Informationon 08-20 INR International Normalized Ratio 2.8 [facility] No Panel Informationon 08-13 INR International Normalized Ratio 2.5 [facility] No Panel Informationon 08-06 INR International Normalized Ratio 2.1 [facility] No Panel Informationon 07-30 INR International Normalized Ratio 2.9 [facility] No Panel Informationon 07-23 INR International Normalized Ratio 3.2 [facility] No Panel Informationon 07-16 INR International Normalized Ratio 2.3 [facility] Basophil percentageOrdered B y: Castro Ferrara on 07-11-2023 Ammonia (P) [Moles/Vol] 25.0 umol/L [facility] Bilirubin [Mass/Vol] 0.90 mg/dL 0.20-1.00 [facility] Comment on above: For patients on eltr ombopag therapy, use of Dimension [place] TBIL is not recommended. Protein [Mass/Vol] 7.9 g/dL 6.4-8.2 [facility] Direct bilirubinOrdered By: Castro Ferrara on 07-11-2023 Bilirubin.direct [Mass/Vol] 0.54 mg/dL 0.00-0.30 [facility] Laboratory - Chemistry and C hemistry - challengeOrdered By: Castro Ferrara on 07-11-2023 ALP [Catalytic activity/Vol] 572 U/L 45-117 [facility] ALT [Catalytic activity/Vol] 106 U/L 16-61 [facility] Globulin (S) [Mass/Vol] 5.2 g/dL 2.2-4.2 [facility] Serum or plasma albumin khalif urement (mass/volume)Ordered By: Castro Ferrara on 07-11-2023 Albumin [Mass/Vol] 2.7 g/dL 3.2-5.0 [facility] Thin prep Papanicolaou smear with manual screeningOrdered By: Castro Ferrara on 07-11-2023 Thin prep Papanicolaou smear with manual screening 99 U/L 15-37 [facility] No Panel Informationon 07-09 INR International Normalized Ratio 2.1 [facility] No Panel Informationon 07-02 INR International Normalized Ratio 2.7 [facility] No Panel Informationon 06-27 INR International Normalized Ratio 3.5 [facility] No Panel Informationon 06-25 INR International Normalized Ratio 4.8 [facility] No Panel Informationon 06-18 INR International Normalized Ratio 4.0 [facility] No Panel Informationon 06-15 INR International Normalized Ratio 3.3 [facility] INR in Blood by Coagulation assayOrdered By: Niels Flores on 06-11-2023 INR Coag (Bld) [Relative time] 1.8 {INR} [facility] Laboratory - CoagulationOrde red By: Niels Flores on 06-11-2023 PT Coag (PPP) [Time] 20.9 s 11.7-14.9 [facility] No Panel Informationon 06-08 INR International Normalized Ratio 2.5 [facility] No Panel Informationon 06-06 INR International Normalized Ratio 7.0 [facility] Absolute lymphocyte countOrd ered By: Karthikeyan Turner on 06-04-2023 Lymphocytes Auto (Unsp spec) [#/Vol] 1.59 10*3/uL 0.83-4.51 [facility] Albumin Elph [Mass/Vol]Order ed By: Timmy Miranda on 06-04-2023 Albumin [Mass/Vol] 3.6 g/dL 2.9-4.4 [facility] Basophil percentageOrdered B y: Timmy Miranda on 06-04-2023 Ammonia (P) [Moles/Vol] 26.0 umol/L 11-32 [facility] Basophil percentageOrdered B y: Karthikeyan Turner on 06-04-2023 Basophils/100 WBC (Bld) 0.5 % 0-1 [facility] Bilirubin [Mass/Vol] 0.80 mg/dL 0.20-1.00 [facility] Comment on above: For patients on eltr ombopag therapy, use of Dimension [place] TBIL is not recommended. Chloride [Moles/Vol] 97 mmol/L 98-107 [facility] Eosinophils/100 WBC (Bld) 1.2 % 0-5 [facility] Glucose [Mass/Vol] 183 mg/dL 74-106 [facility] Comment on above: Fasting Glucose resu lt greater than or equal to 126 mg/dL suggests DIABETES MELLITUS per A.D.A. criteria. LDH [Catalytic activity/Vol] 373 U/L 87-241 [facility] Neutrophils (Bld) [#/Vol] 12.0 10*3/uL 2.0-7.7 [facility] Neutrophils/100 WBC (Bld) 80.8 % 47-70 [facility] Potassium [Moles/Vol] 4.0 mmol/L 3.5-5.1 [facility] Protein [Mass/Vol] 9.6 g/dL 6.4-8.2 [facility] Sodium [Moles/Vol] 134 mmol/L 136-145 [facility] WBC (Bld) [#/Vol] 14.8 10*3/uL 4.4-11.0 [facility] Blood erythrocytes count (nu mber/volume)Ordered By: Karthikeyan Turenr on 06-04-2023 RBC (Bld) [#/Vol] 3.30 10*6/uL 4.6-6.2 [facility] Blood hemoglobin measurement (mass/volume)Ordered By: Karthikeyan Turner on 06-04-2023 Hemoglobin (Bld) [Mass/Vol] 10.6 g/dL 13.0-16.5 [facility] Blood lymphocytes/100 leukoc ytesOrdered By: Karthikeyan Turner on 06-04-2023 Lymphocytes/100 WBC (Bld) 10.7 % 19-41 [facility] Blood monocytes/100 leukocyt esOrdered By: Karthikeyan Turner on 06-04-2023 Monocytes/100 WBC (Bld) 5.5 % 0-10 [facility] Blood platelet mean volumeOr dered By: Karthikeyan Turner on 06-04-2023 Platelet mean volume (Bld) [Entitic vol] 9.3 fL 6.2-12.0 [facility] Determination of erythrocyte mean corpuscular volume (MCV)Ordered By: Karthikeyan Turner on 06-04-2023 MCV (RBC) [Entitic vol] 100.6 fL 80-94 [facility] Hematocrit Auto (Bld) [Volum e fraction]Ordered By: Karthikeyan Turner on 06-04-2023 Hematocrit (Bld) [Volume fraction] 33.2 % 40-54 [facility] Interpretation of serum or p lasma protein pattern by immunofixation (narrative resultOrdered By: Timmy Miranda on 06-04-2023 Protein Fractions Immunofixation [place] [Interp] See comment [facility] Comment on above: NOT OBSERVED Laboratory - Chemistry and C hemistry - challengeOrdered By: Karthikeyan Turner on 06-04-2023 ALP [Catalytic activity/Vol] 564 U/L 45-117 [facility] ALT [Catalytic activity/Vol] 119 U/L 16-61 [facility] CO2 [Moles/Vol] 28.0 mmol/L 21.0-32.0 [facility] Urea nitrogen/Creatinine [Mass ratio] 6.2 mg/mg 10-20 [facility] Laboratory - Hematology and Cell countsOrdered By: Karthikeyan Turner on 06-04-2023 Erythrocyte distribution width (RBC) [Entitic vol] 62.4 fL 35.1-43.9 [facility] Erythrocyte distribution width (RBC) [Ratio] 17.2 % 11.6-14.6 [facility] Immature granulocytes/100 WBC (Bld) 1.300 % 0.0-0.9 [facility] Comment on above: IG% - Immature Granu locytes (promyelocytes, myelocytes and metamyelocytes) > 1% indicates that a LEFT SHIFT is Present. MCH (RBC) [Entitic mass] 32.1 pg 27.0-32.0 [facility] Nucleated RBC/100 WBC (Bld) [Ratio] 0 % 0-5 [facility] MCHC Auto (RBC) [Mass/Vol]Or dered By: Karthikeyan Turner on 06-04-2023 MCHC (RBC) [Mass/Vol] 31.9 g/dL 32-36 [facility] No Panel InformationOrdered By: Timmy Miranda on 06-04-2023 Addendum Document Comment . [facility] Comment on above: Protein electrophore sis scan will follow via computer,mail, or mechanical engineering teacher delivery.Performed at: [place] [id number] Director: Zen Joshi PhD, Phone: [phone] No Panel InformationOrdered By: Karthikeyan Turner on 06-04-2023 Estimated Creatinine Clearance Calc 7.94 ml/min [facility] Estimated GFR (MDRD) Amer 9 mL/min >60 [facility] Comment on above: GFR Calc Estimated GFR (MDRD) Non-Af Amer 7 mL/min >60 [facility] Comment on above: Non- GFR Calc No Panel Informationon 06-04 INR International Normalized Ratio 1.6 [facility] Platelets bldOrdered By: Lul Turner on 06-04-2023 Platelets (Bld) [#/Vol] 277 10*3/uL 150-450 [facility] Serum [id number] measu rement by electrophoresisOrdered By: Timmy Miranda on 06-04-2023 Alpha 1 globulin Elph [Mass/Vol] 0.4 g/dL 0.0-0.4 [facility] Alpha 1 globulin Elph [Mass/Vol] 1.0 g/dL 0.4-1.0 [facility] Serum globulin measurement ( mass/volume)Ordered By: Timmy Miranda on 06-04-2023 Globulin (S) [Mass/Vol] 4.6 g/dL 2.2-3.9 [facility] Serum or plasma IgA measurem ent (mass/volume)Ordered By: Timmy Miranda on 06-04-2023 IgA [Mass/Vol] 164 mg/dL 61-437 [facility] Serum or plasma IgG measurem ent (mass/volume)Ordered By: Timmy Miranda on 06-04-2023 IgG [Mass/Vol] 1594 mg/dL 603-1613 [facility] Serum or plasma IgM measurem ent (mass/volume)Ordered By: Timmy Miranda on 06-04-2023 IgM [Mass/Vol] 795 mg/dL High 15-143 [facility] Comment on above: Results confirmed on dilution. Serum or plasma albumin khalif urement (mass/volume)Ordered By: Karthikeyan Turner on 06-04-2023 Albumin [Mass/Vol] 3.3 g/dL 3.2-5.0 [facility] Serum or plasma albumin/glob ulin mass ratioOrdered By: Karthikeyan Turner on 06-04-2023 Albumin/Globulin [Mass ratio] 0.5 {ratio} 0.9-2.4 [facility] Serum or plasma beta globuli n measurement by electrophoresis (mass/volume)Ordered By: Timmy Miranda on 06-04-2023 Beta globulin Elph [Mass/Vol] 1.1 g/dL 0.7-1.3 [facility] Serum or plasma calcium khalif urement (mass/volume)Ordered By: Karthikeyan Turner on 06-04-2023 Calcium [Mass/Vol] 10.5 mg/dL 8.5-10.1 [facility] Serum or plasma creatinine m easurement (mass/volume)Ordered By: Karthikeyan Turner on 06-04-2023 Creatinine [Mass/Vol] 7.63 mg/dL 0.70-1.30 [facility] Comment on above: Critical Result(s) C alled at: 14:29:52 06/04/2023 by: Shana Herman to [facility]. Results read back by same.The validity of the calculated GFR & GFRAA in patients over 70 years has not been determined. Clinical correlation is essential. Serum or plasma gamma globul in measurement by electrophoresis (mass/volume)Ordered By: Timmy Mrianda on 06-04-2023 Gamma globulin Elph [Mass/Vol] 2.0 g/dL High 0.4-1.8 [facility] Serum or plasma immunoelectr ophoresis interpretation (nominal result)Ordered By: Timmy Miranda on 06-04-2023 Interpretation IEP [Interp] Comment . [facility] Comment on above: No monoclonality det ected. Serum or plasma urea nitroge n measurement (mass/volume)Ordered By: Karthikeyan Turner on 06-04-2023 Urea nitrogen [Mass/Vol] 47 mg/dL 7-18 [facility] Thin prep Papanicolaou smear with manual screeningOrdered By: Karthikeyan Turner on 06-04-2023 Thin prep Papanicolaou smear with manual screening 98 U/L 15- [facility] Thin prep Papanicolaou smear with manual screening 9 5-15 [facility] Thin prep Papanicolaou smear with manual screeningOrdered By: Timmy Miranda on 06-04-2023 Thin prep Papanicolaou smear with manual screening 0.8 0.7-1.7 [facility] Total protein bloodOrdered B y: Timmy Miranda on 06-04-2023 Protein [Mass/Vol] 8.2 g/dL 6.0-8.5 [facility] No Panel Informationon 05-28 INR International Normalized Ratio 3.2 [facility] No Panel Informationon 05-25 INR International Normalized Ratio 2.8 [facility] No Panel Informationon 05-23 INR International Normalized Ratio 4.0 [facility] No Panel Informationon 05-21 INR International Normalized Ratio 5.1 [facility] No Panel Informationon 05-14 INR International Normalized Ratio 2.3 [facility] No Panel Informationon 05-07 INR International Normalized Ratio 3.0 [facility] No Panel Informationon 04-30 INR International Normalized Ratio 4.4 [facility] No Panel Informationon 04-23 INR International Normalized Ratio 2.6 [facility] INR in Blood by Coagulation assayOrdered By: Niels Flores on 04-19-2023 INR Coag (Bld) [Relative time] 2.7 {INR} [facility] Laboratory - CoagulationOrde red By: Niels Flores on 04-19-2023 PT Coag (PPP) [Time] 29.4 s 11.7-14.9 [facility] No Panel Informationon 04-16 INR International Normalized Ratio 4.1 [facility] No Panel Informationon 04-09 INR International Normalized Ratio 2.7 [facility] No Panel Informationon 04-02 INR International Normalized Ratio 2.2 [facility] Absolute lymphocyte countOrd ered By: Dr. Palafox on 03-29-2023 Lymphocytes Auto (Unsp spec) [#/Vol] 1.60 10*3/uL 0.83-4.51 [facility] Basophil percentageOrdered B y: Dr. Palafox on 03-29-2023 Basophil percentage 106 mg/dL 74-106 [facility] Basophil percentage 139 mmol/L 136-145 [facility] Basophil percentage 4.3 mmol/L 3.5-5.1 [facility] Basophil percentage 99 mmol/L 98-107 [facility] Basophils (Bld) [#/Vol] 9.9 10*3/uL 4.4-11.0 [facility] Basophils (Bld) [#/Vol] 6.5 10*3/uL 2.0-7.7 [facility] Basophils/100 WBC (Bld) 66.0 % 47-70 [facility] Basophils/100 WBC (Bld) 5.5 % 0-5 [facility] Basophils/100 WBC (Bld) 0.7 % 0-1 [facility] Basophil percentageOrdered B y: Matt Palafox on 03-29-2023 Chloride [Moles/Vol] 99 mmol/L 98-107 [facility] Eosinophils/100 WBC (Bld) 5.5 % 0-5 [facility] Glucose [Mass/Vol] 106 mg/dL 74-106 [facility] Comment on above: Fasting Glucose resu lt from 100 to 125 mg/dL suggests IMPAIRED HOMEOSTASIS per A.D.A. criteria. Neutrophils (Bld) [#/Vol] 6.5 10*3/uL 2.0-7.7 [facility] Neutrophils/100 WBC (Bld) 66.0 % 47-70 [facility] Potassium [Moles/Vol] 4.3 mmol/L 3.5-5.1 [facility] Sodium [Moles/Vol] 139 mmol/L 136-145 [facility] WBC (Bld) [#/Vol] 9.9 10*3/uL 4.4-11.0 [facility] Basophil percentageOrdered B y: Dr. Wen on 03-29-2023 Basophil percentage 108 mg/dL 74-106 [facility] Basophil percentage 137 mmol/L 136-145 [facility] Basophil percentage 4.6 mmol/L 3.5-5.1 [facility] Basophil percentage 98 mmol/L 98-107 [facility] Basophils (Bld) [#/Vol] 10.5 10*3/uL 4.4-11.0 [facility] Chloride [Moles/Vol] 98 mmol/L 98-107 [facility] Glucose [Mass/Vol] 108 mg/dL 74-106 [facility] Comment on above: Fasting Glucose resu lt from 100 to 125 mg/dL suggests IMPAIRED HOMEOSTASIS per A.D.A. criteria. Potassium [Moles/Vol] 4.6 mmol/L 3.5-5.1 [facility] Sodium [Moles/Vol] 137 mmol/L 136-145 [facility] WBC (Bld) [#/Vol] 10.5 10*3/uL 4.4-11.0 [facility] Blood erythrocytes count (nu mber/volume)Ordered By: Dr. Palafox on 03-29-2023 RBC (Bld) [#/Vol] 3.09 10*6/uL 4.6-6.2 [facility] Blood erythrocytes count (nu mber/volume)Ordered By: Dr. Wen on 03-29-2023 RBC (Bld) [#/Vol] 3.19 10*6/uL 4.6-6.2 [facility] Blood hemoglobin measurement (mass/volume)Ordered By: Dr. Palafox on 03-29-2023 Hemoglobin (Bld) [Mass/Vol] 9.8 g/dL 13.0-16.5 [facility] Blood hemoglobin measurement (mass/volume)Ordered By: Dr. Wen on 03-29-2023 Hemoglobin (Bld) [Mass/Vol] 10.3 g/dL 13.0-16.5 [facility] Blood lymphocytes/100 leukoc ytesOrdered By: Dr. Palafox on 03-29-2023 Lymphocytes/100 WBC (Bld) 16.2 % 19-41 [facility] Blood monocytes/100 leukocyt esOrdered By: Dr. Palafox on 03-29-2023 Monocytes/100 WBC (Bld) 11.1 % 0-10 [facility] Blood platelet mean volumeOr dered By: Dr. Palafox on 03-29-2023 Platelet mean volume (Bld) [Entitic vol] 9.4 fL 6.2-12.0 [facility] Blood platelet mean volumeOr dered By: Dr. Wen on 03-29-2023 Platelet mean volume (Bld) [Entitic vol] 8.9 fL 6.2-12.0 [facility] Determination of erythrocyte mean corpuscular volume (MCV)Ordered By: Dr. Palafox on 03-29-2023 MCV (RBC) [Entitic vol] 100.6 fL 80-94 [facility] [place] Determination of erythrocyte mean corpuscular volume (MCV)Ordered By: Dr. Wen on 03-29-2023 MCV (RBC) [Entitic vol] 100.9 fL 80-94 [facility] Hematocrit Auto (Bld) [Volum e fraction]Ordered By: Dr. Palafox on 03-29-2023 Hematocrit (Bld) [Volume fraction] 31.1 % 40-54 [facility] Hematocrit Auto (Bld) [Volum e fraction]Ordered By: Dr. Wen on 03-29-2023 Hematocrit (Bld) [Volume fraction] 32.2 % 40-54 [facility] INR in Blood by Coagulation assayOrdered By: Dr. Palafox on 03-29-2023 INR Coag (Bld) [Relative time] 2.6 {INR} [facility] INR in Blood by Coagulation assayOrdered By: Dr. Wen on 03-29-2023 INR Coag (Bld) [Relative time] 2.4 {INR} [facility] Laboratory - Chemistry and C hemistry - challengeOrdered By: Matt Palafox on 03-29-2023 CO2 [Moles/Vol] 27.0 mmol/L 21.0-32.0 [facility] Urea nitrogen/Creatinine [Mass ratio] 7.9 mg/mg 10- [facility] Laboratory - Chemistry and C hemistry - challengeOrdered By: Dr. Wen on 03-29-2023 CO2 [Moles/Vol] 28.0 mmol/L 21.0-32.0 [facility] Urea nitrogen/Creatinine [Mass ratio] 8.2 mg/mg 10 [facility] Laboratory - CoagulationOrde red By: Matt Palafox on 03-29-2023 PT Coag (PPP) [Time] 28.3 s 11.7-14.9 [facility] Laboratory - CoagulationOrde red By: Dr. Wen on 03-29-2023 PT Coag (PPP) [Time] 26.4 s 11.7-14.9 [facility] Laboratory - Hematology and Cell countsOrdered By: Matt Palafox on 03-29-2023 Erythrocyte distribution width (RBC) [Entitic vol] 58.2 fL 35.1-43.9 [facility] Erythrocyte distribution width (RBC) [Ratio] 15.8 % 11.6-14.6 [facility] Immature granulocytes/100 WBC (Bld) 0.500 % 0.0-0.9 [facility] Comment on above: IG% - Immature Granu locytes (promyelocytes, myelocytes and metamyelocytes) > 1% indicates that a LEFT SHIFT is Present. MCH (RBC) [Entitic mass] 31.7 pg 27.0-32.0 [facility] Nucleated RBC/100 WBC (Bld) [Ratio] 0 % 0-5 [facility] Laboratory - Hematology and Cell countsOrdered By: Dr. Wen on 03-29-2023 Erythrocyte distribution width (RBC) [Entitic vol] 57.5 fL 35.1-43.9 [facility] Erythrocyte distribution width (RBC) [Ratio] 15.6 % 11.6-14.6 [facility] MCH (RBC) [Entitic mass] 32.3 pg 27.0-32.0 [facility] MCHC Auto (RBC) [Mass/Vol]Or dered By: Dr. Palafox on 03-29-2023 MCHC (RBC) [Mass/Vol] 31.5 g/dL 32-36 [facility] Auto (RBC) [Mass/Vol]Or dered By: Dr. Wen on 03-29-2023 MCHC (RBC) [Mass/Vol] 32.0 g/dL 32-36 [facility] No Panel InformationOrdered By: Matt Palafox on 03-29-2023 Estimated Creatinine Clearance Calc 6.08 ml/min [facility] Estimated GFR (MDRD) Amer 7 mL/min >60 [facility] Comment on above: GFR Calc Estimated GFR (MDRD) Non-Af Amer 6 mL/min >60 [facility] Comment on above: Non- GFR Calc No Panel InformationOrdered By: Dr. Palafox on 03-29-2023 31.7 pg 27.0-32.0 [facility] 15.8 % 11.6-14.6 [facility] 58.2 fl 35.1-43.9 [facility] 0.500 % 0.0-0.9 [facility] 0 % 0-5 [facility] 28.3 SECONDS 11.7-14.9 [facility] 6 mL/min >60 [facility] 7 mL/min >60 [facility] 6.08 ml/min [facility] 7.9 RATIO 10-20 [facility] 27.0 mmol/L 21.0-32.0 [facility] No Panel InformationOrdered By: Dr. Wen on 03-29-2023 Estimated Creatinine Clearance Calc 6.47 ml/min [facility] Estimated GFR (MDRD) Amer 7 mL/min >60 [facility] Comment on above: GFR Calc Estimated GFR (MDRD) Non-Af Amer 6 mL/min >60 [facility] Comment on above: Non- GFR Calc 32.3 pg 27.0-32.0 [facility] 15.6 % 11.6-14.6 [facility] 57.5 fl 35.1-43.9 [facility] 26.4 SECONDS 11.7-14.9 [facility] 6 mL/min >60 [facility] 7 mL/min >60 [facility] 6.47 ml/min [facility] 8.2 RATIO 10-20 [facility] 28.0 mmol/L 21.0-32.0 [facility] Platelets bldOrdered By: Dr. Palafox on 03-29-2023 Platelets (Bld) [#/Vol] 247 10*3/uL 150-450 [facility] Platelets bldOrdered By: Dr. Wen on 03-29-2023 Platelets (Bld) [#/Vol] 245 10*3/uL 150-450 [facility] Serum or plasma calcium khalif urement (mass/volume)Ordered By: Dr. Palafox on 03-29-2023 Calcium [Mass/Vol] 9.5 mg/dL 8.5-10.1 [facility] Serum or plasma calcium khalif urement (mass/volume)Ordered By: Dr. Wen on 03-29-2023 Calcium [Mass/Vol] 9.7 mg/dL 8.5-10.1 [facility] Serum or plasma creatinine m easurement (mass/volume)Ordered By: Dr. Palafox on 03-29-2023 Creatinine [Mass/Vol] 9.97 mg/dL 0.70-1.30 [facility] Comment on above: Critical Result(s) C alled at: 18:13:03 03/29/2023 by: KAYLIN VICTORIA to ANN MARIE PATINO. Results read back by same.The validity of the calculated GFR & GFRAA in patients over 70 years has not been determined. Clinical correlation is essential. Serum or plasma creatinine m easurement (mass/volume)Ordered By: Dr. Wen on 03-29-2023 Creatinine [Mass/Vol] 9.37 mg/dL 0.70-1.30 [facility] Comment on above: Critical Result(s) C alled at: 09:29:52 03/29/2023 by: Shana Feldman. Results read back by same.The validity of the calculated GFR & GFRAA in patients over 70 years has not been determined. Clinical correlation is essential. Serum or plasma urea nitroge n measurement (mass/volume)Ordered By: Dr. Palafox on 03-29-2023 Urea nitrogen [Mass/Vol] 79 mg/dL 7-18 [facility] Serum or plasma urea nitroge n measurement (mass/volume)Ordered By: Dr. Wen on 03-29-2023 Urea nitrogen [Mass/Vol] 77 mg/dL 7-18 [facility] Thin prep Papanicolaou smear with manual screeningOrdered By: Dr. Palafox on 03-29-2023 Thin prep Papanicolaou smear with manual screening 13 04-02 [facility] Thin prep Papanicolaou smear with manual screeningOrdered By: Dr. Wen on 03-29-2023 Thin prep Papanicolaou smear with manual screening 11 04-02 [facility] CYSTOSCOPYon 03-28-2023 Darrel echavarria MD 03/28/2023 12:02 PM CYSTOSCOPY Date/Time: 03/28/2023 10:00 AM Performed by: Darrel Garcia MD Authorized by: Darrel Garcia MD The attending physician was present [...] time he is not interested in this. [facility] Radiology Study observation (narrative) [facility] No Panel Informationon 03-26 INR International Normalized Ratio 3.2 [facility] 3.2 [facility] No Panel Informationon 03-19 INR International Normalized Ratio 4.0 [facility] 4.0 [facility] No Panel Informationon 03-12 INR International Normalized Ratio 2.4 [facility] 2.4 [facility] No Panel Informationon 03-05 INR International Normalized Ratio 2.0 [facility] 2.0 [facility] No Panel Informationon 03-01 INR International Normalized Ratio 2.9 [facility] 2.9 [facility] No Panel Informationon 02-28 INR International Normalized Ratio 4.2 [facility] 4.2 [facility] No Panel Informationon 02-26 INR International Normalized Ratio 5.4 [facility] 5.4 [facility] No Panel Informationon 02-23 INR International Normalized Ratio 4.4 [facility] 4.4 [facility] INR in Blood by Coagulation assayOrdered By: Dr. Grullon on 02-02-2023 INR Coag (Bld) [Relative time] 2.2 {INR} [facility] Laboratory - CoagulationOrde red By: Dr. Grullon on 02-02-2023 PT Coag (PPP) [Time] 24.0 s 11.7-14.9 [facility] No Panel InformationOrdered By: Dr. Grullon on 02-02-2023 24.0 SECONDS 11.7-14.9 [facility] No Panel Informationon 01-31 INR International Normalized Ratio 4.6 [facility] 4.6 [facility] No Panel Informationon 01-29 INR International Normalized Ratio 5.7 [facility] 5.7 [facility] Absolute lymphocyte countOrd ered By: Dr. Ferrara on 01-24-2023 Lymphocytes Auto (Unsp spec) [#/Vol] 1.08 10*3/uL 0.83-4.51 [facility] Basophil percentageOrdered B y: Dr. Ferrara on 01-24-2023 Basophils (Bld) [#/Vol] 7.2 10*3/uL 4.4-11.0 [facility] Basophils (Bld) [#/Vol] 5.0 10*3/uL 2.0-7.7 [facility] Basophils/100 WBC (Bld) 0.8 % 0-1 [facility] Basophils/100 WBC (Bld) 68.6 % 47-70 [facility] Basophils/100 WBC (Bld) 4.9 % 0-5 [facility] Eosinophils/100 WBC (Bld) 4.9 % 0-5 [facility] Neutrophils (Bld) [#/Vol] 5.0 10*3/uL 2.0-7.7 [facility] Neutrophils/100 WBC (Bld) 68.6 % 47-70 [facility] WBC (Bld) [#/Vol] 7.2 10*3/uL 4.4-11.0 [facility] Blood erythrocytes count (nu mber/volume)Ordered By: Dr. Ferrara on 01-24-2023 RBC (Bld) [#/Vol] 3.56 10*6/uL 4.6-6.2 [facility] Blood hemoglobin measurement (mass/volume)Ordered By: Dr. Ferrara on 01-24-2023 Hemoglobin (Bld) [Mass/Vol] 11.2 g/dL 13.0-16.5 [facility] Blood lymphocytes/100 leukoc ytesOrdered By: Dr. Ferrara on 01-24-2023 Lymphocytes/100 WBC (Bld) 15.0 % 19-41 [facility] Blood monocytes/100 leukocyt esOrdered By: Dr. Ferrara on 01-24-2023 Monocytes/100 WBC (Bld) 10.0 % 0-10 [facility] Blood platelet mean volumeOr dered By: Dr. Ferrara on 01-24-2023 Platelet mean volume (Bld) [Entitic vol] 10.2 fL 6.2-12.0 [facility] Determination of erythrocyte mean corpuscular volume (MCV)Ordered By: Dr. Ferrara on 01-24-2023 MCV (RBC) [Entitic vol] 100.0 fL 80-94 [facility] Hematocrit Auto (Bld) [Volum e fraction]Ordered By: Dr. Ferrara on 01-24-2023 Hematocrit (Bld) [Volume fraction] 35.6 % 40-54 [facility] INR in Blood by Coagulation assayOrdered By: Dr. Ferrara on 01-24-2023 INR Coag (Bld) [Relative time] 2.5 {INR} [facility] Laboratory - CoagulationOrde red By: Dr. Ferrara on 01-24-2023 PT Coag (PPP) [Time] 26.8 s 11.7-14.9 [facility] Laboratory - Hematology and Cell countsOrdered By: Dr. Ferrara on 01-24-2023 Erythrocyte distribution width (RBC) [Entitic vol] 60.6 fL 35.1-43.9 [facility] Erythrocyte distribution width (RBC) [Ratio] 16.6 % 11.6-14.6 [facility] Immature granulocytes/100 WBC (Bld) 0.700 % 0.0-0.9 [facility] Comment on above: IG% - Immature Granu locytes (promyelocytes, myelocytes and metamyelocytes) > 1% indicates that a LEFT SHIFT is Present. MCH (RBC) [Entitic mass] 31.5 pg 27.0-32.0 [facility] Nucleated RBC/100 WBC (Bld) [Ratio] 0 % 0-5 [facility] MCHC Auto (RBC) [Mass/Vol]Or dered By: Dr. Ferrara on 01-24-2023 MCHC (RBC) [Mass/Vol] 31.5 g/dL 32-36 [facility] No Panel InformationOrdered By: Dr. Ferrara on 01-24-2023 31.5 pg 27.0-32.0 [facility] 16.6 % 11.6-14.6 [facility] 60.6 fl 35.1-43.9 [facility] 0.700 % 0.0-0.9 [facility] 0 % 0-5 [facility] 26.8 SECONDS 11.7-14.9 [facility] Platelets bldOrdered By: Dr. Ferrara on 01-24-2023 Platelets (Bld) [#/Vol] 127 10*3/uL 150-450 [facility] No Panel Informationon 01-22 INR International Normalized Ratio 1.6 [facility] 1.6 [facility] Absolute lymphocyte countOrd ered By: Dr. Centeno on 01-19-2023 Lymphocytes Auto (Unsp spec) [#/Vol] 1.13 10*3/uL 0.83-4.51 [facility] Basophil percentageOrdered B y: Dr. Centeno on 01-19-2023 Ammonia (P) [Moles/Vol] 38.0 umol/L - [facility] Basophil percentage 94 mg/dL 74-106 [facility] Basophil percentage 8.0 g/dL 6.4-8.2 [facility] Basophil percentage 1.20 mg/dL 0.20-1.00 [facility] Basophil percentage 133 mmol/L 136-145 [facility] Basophil percentage 4.6 mmol/L 3.5-5.1 [facility] Basophil percentage 98 mmol/L 98-107 [facility] Basophil percentage 38.0 umol/L 11-32 [facility] Basophils (Bld) [#/Vol] 8.4 10*3/uL 4.4-11.0 [facility] Basophils (Bld) [#/Vol] 5.8 10*3/uL 2.0-7.7 [facility] Basophils/100 WBC (Bld) 0.8 % 0-1 [facility] [place] Basophils/100 WBC (Bld) 68.9 % 47-70 [facility] Basophils/100 WBC (Bld) 4.9 % 0-5 [facility] Bilirubin [Mass/Vol] 1.20 mg/dL 0.20-1.00 [facility] Comment on above: For patients on eltr ombopag therapy, use of Dimension [place] TBIL is not recommended. Chloride [Moles/Vol] 98 mmol/L 98-107 [facility] Eosinophils/100 WBC (Bld) 4.9 % 0-5 [facility] Glucose [Mass/Vol] 94 mg/dL 74-106 [facility] Neutrophils (Bld) [#/Vol] 5.8 10*3/uL 2.0-7.7 [facility] Neutrophils/100 WBC (Bld) 68.9 % 47-70 [facility] Potassium [Moles/Vol] 4.6 mmol/L 3.5-5.1 [facility] Protein [Mass/Vol] 8.0 g/dL 6.4-8.2 [facility] Sodium [Moles/Vol] 133 mmol/L 136-145 [facility] WBC (Bld) [#/Vol] 8.4 10*3/uL 4.4-11.0 [facility] Blood erythrocytes count (nu mber/volume)Ordered By: Dr. Centeno on 01-19-2023 RBC (Bld) [#/Vol] 3.45 10*6/uL 4.6-6.2 [facility] Blood hemoglobin measurement (mass/volume)Ordered By: Dr. Centeno on 01-19-2023 Hemoglobin (Bld) [Mass/Vol] 11.2 g/dL 13.0-16.5 [facility] Blood lymphocytes/100 leukoc ytesOrdered By: Dr. Centeno on 01-19-2023 Lymphocytes/100 WBC (Bld) 13.4 % 19-41 [facility] Blood monocytes/100 leukocyt esOrdered By: Dr. Centeno on 01-19-2023 Monocytes/100 WBC (Bld) 11.5 % 0-10 [facility] Blood platelet mean volumeOr dered By: Dr. Centeno on 01-19-2023 Platelet mean volume (Bld) [Entitic vol] 8.3 fL 6.2-12.0 [facility] Determination of erythrocyte mean corpuscular volume (MCV)Ordered By: Dr. Centeno on 01-19-2023 MCV (RBC) [Entitic vol] 95.4 fL 80-94 [facility] Comment on above: Delta: 103.7 on Hematocrit Auto (Bld) [Volum e fraction]Ordered By: Dr. Centeno on 01-19-2023 Hematocrit (Bld) [Volume fraction] 32.9 % 40-54 [facility] INR in Blood by Coagulation assayOrdered By: Dr. Rothman on 01-19-2023 INR Coag (Bld) [Relative time] 3.1 {INR} [facility] Laboratory - Chemistry and C hemistry - challengeOrdered By: Dr. Centeno on 01-19-2023 ALP [Catalytic activity/Vol] 517 U/L 45-117 [facility] ALT [Catalytic activity/Vol] 68 U/L 16-61 [facility] CO2 [Moles/Vol] 26.0 mmol/L 21.0-32.0 [facility] Globulin (S) [Mass/Vol] 4.9 g/dL 2.2-4.2 [facility] Urea nitrogen/Creatinine [Mass ratio] 6.9 mg/mg 10-20 [facility] Laboratory - CoagulationOrde red By: Dr. Rothman on 01-19-2023 PT Coag (PPP) [Time] 31.9 s 11.7-14.9 [facility] Laboratory - Hematology and Cell countsOrdered By: Dr. Centeno on 01-19-2023 Erythrocyte distribution width (RBC) [Entitic vol] 58.4 fL 35.1-43.9 [facility] Erythrocyte distribution width (RBC) [Ratio] 17.0 % 11.6-14.6 [facility] Immature granulocytes/100 WBC (Bld) 0.500 % 0.0-0.9 [facility] Comment on above: IG% - Immature Granu locytes (promyelocytes, myelocytes and metamyelocytes) > 1% indicates that a LEFT SHIFT is Present. MCH (RBC) [Entitic mass] 32.5 pg 27.0-32.0 [facility] Nucleated RBC/100 WBC (Bld) [Ratio] 0 % 0-5 [facility] MCHC Auto (RBC) [Mass/Vol]Or dered By: Dr. Centeno on 01-19-2023 MCHC (RBC) [Mass/Vol] 34.0 g/dL 32-36 [facility] Comment on above: Delta: 30.6 on [id number] No Panel InformationOrdered By: Dr. Centeno on 01-19-2023 Estimated Creatinine Clearance Calc 10.32 ml/min [facility] Estimated GFR (MDRD) Amer 12 mL/min >60 [facility] Comment on above: GFR Calc Estimated GFR (MDRD) Non-Af Amer 10 mL/min >60 [facility] Comment on above: Non- GFR Calc 32.5 pg 27.0-32.0 [facility] 17.0 % 11.6-14.6 [facility] 58.4 fl 35.1-43.9 [facility] 0.500 % 0.0-0.9 [facility] 0 % 0-5 [facility] 10 mL/min >60 [facility] 12 mL/min >60 [facility] 10.32 ml/min [facility] 6.9 RATIO 10-20 [facility] 4.9 g/dL 2.2-4.2 [facility] 517 U/L 45-117 [facility] 68 U/L 16-61 [facility] 26.0 mmol/L 21.0-32.0 [facility] No Panel InformationOrdered By: Dr. Rothman on 01-19-2023 31.9 SECONDS 11.7-14.9 [facility] Platelets bldOrdered By: Dr. Centeno on 01-19-2023 Platelets (Bld) [#/Vol] 183 10*3/uL 150-450 [facility] Serum or plasma albumin khalif urement (mass/volume)Ordered By: Dr. Centeno on 01-19-2023 Albumin [Mass/Vol] 3.1 g/dL 3.2-5.0 [facility] Serum or plasma albumin/glob ulin mass ratioOrdered By: Dr. Centeno on 01-19-2023 Albumin/Globulin [Mass ratio] 0.6 {ratio} 0.9-2.4 [facility] Serum or plasma calcium khalif urement (mass/volume)Ordered By: Dr. Centeno on 01-19-2023 Calcium [Mass/Vol] 8.9 mg/dL 8.5-10.1 [facility] Serum or plasma creatinine m easurement (mass/volume)Ordered By: Dr. Centeno on 01-19-2023 Creatinine [Mass/Vol] 5.96 mg/dL 0.70-1.30 [facility] Comment on above: The validity of the calculated GFR & GFRAA in patients over 70 years has not been determined. Clinical correlation is essential. Serum or plasma urea nitroge n measurement (mass/volume)Ordered By: Dr. Centeno on 01-19-2023 Urea nitrogen [Mass/Vol] 41 mg/dL 7-18 [facility] Thin prep Papanicolaou smear with manual screeningOrdered By: Dr. Centeno on 01-19-2023 Thin prep Papanicolaou smear with manual screening 73 U/L 15-37 [facility] Thin prep Papanicolaou smear with manual screening 9 5-15 [facility] Lower GI hemoglobin IA Ql (S tl)Ordered By: Dr. Rothman on 01-18-2023 Stool Occult Blood (SANDRA) Positive [facility] Stool gastrointestinal hemoglobin detection by immunologic method Positive [facility] Absolute lymphocyte countOrd ered By: Dr. Garrison on 01-17-2023 Lymphocytes Auto (Unsp spec) [#/Vol] 1.26 10*3/uL 0.83-4.51 [facility] Absolute lymphocyte countOrd ered By: Dr. Grullon on 01-17-2023 Lymphocytes Auto (Unsp spec) [#/Vol] 1.42 10*3/uL 0.83-4.51 [facility] Basophil percentageOrdered B y: Dr. Garrison on 01-17-2023 Basophils/100 WBC (Bld) 0.7 % 0-1 [facility] Bilirubin [Mass/Vol] 0.80 mg/dL 0.20-1.00 [facility] Comment on above: For patients on eltr ombopag therapy, use of Dim[employer] [place] TBIL is not recommended. Chloride [Moles/Vol] 98 mmol/L 98-107 [facility] Eosinophils/100 WBC (Bld) 6.0 % 0-5 [facility] Glucose [Mass/Vol] 120 mg/dL 74-106 [facility] Comment on above: Fasting Glucose resu lt from 100 to 125 mg/dL suggests IMPAIRED HOMEOSTASIS per A.D.A. criteria. Neutrophils (Bld) [#/Vol] 4.3 10*3/uL 2.0-7.7 [facility] Neutrophils/100 WBC (Bld) 61.7 % 47-70 [facility] Potassium [Moles/Vol] 4.0 mmol/L 3.5-5.1 [facility] Protein [Mass/Vol] 8.0 g/dL 6.4-8.2 [facility] Sodium [Moles/Vol] 137 mmol/L 136-145 [facility] WBC (Bld) [#/Vol] 7.0 10*3/uL 4.4-11.0 [facility] Basophil percentageOrdered B y: Dr. Grullon on 01-17-2023 Basophil percentage 96 mg/dL 74-106 [facility] Basophil percentage 8.3 g/dL 6.4-8.2 [facility] Basophil percentage 0.80 mg/dL 0.20-1.00 [facility] Basophil percentage 135 mmol/L 136-145 [facility] Basophil percentage 4.1 mmol/L 3.5-5.1 [facility] Basophil percentage 96 mmol/L 98-107 [facility] Basophils (Bld) [#/Vol] 8.0 10*3/uL 4.4-11.0 [facility] Basophils (Bld) [#/Vol] 5.2 10*3/uL 2.0-7.7 [facility] Basophils/100 WBC (Bld) 0.5 % 0-1 [facility] Basophils/100 WBC (Bld) 64.8 % 47-70 [facility] Basophils/100 WBC (Bld) 5.9 % 0-5 [facility] Bilirubin [Mass/Vol] 0.80 mg/dL 0.20-1.00 [facility] Comment on above: For patients on eltr ombopag therapy, use of Dimension [place] TBIL is not recommended. Chloride [Moles/Vol] 96 mmol/L 98-107 [facility] Eosinophils/100 WBC (Bld) 5.9 % 0-5 [facility] Glucose [Mass/Vol] 96 mg/dL 74-106 [facility] Neutrophils (Bld) [#/Vol] 5.2 10*3/uL 2.0-7.7 [facility] Neutrophils/100 WBC (Bld) 64.8 % 47-70 [facility] Potassium [Moles/Vol] 4.1 mmol/L 3.5-5.1 [facility] Protein [Mass/Vol] 8.3 g/dL 6.4-8.2 [facility] Sodium [Moles/Vol] 135 mmol/L 136-145 [facility] WBC (Bld) [#/Vol] 8.0 10*3/uL 4.4-11.0 [facility] Blood erythrocytes count (nu mber/volume)Ordered By: Dr. Garrison on 01-17-2023 RBC (Bld) [#/Vol] 2.14 10*6/uL 4.6-6.2 [facility] Blood erythrocytes count (nu mber/volume)Ordered By: Dr. Grullon on 01-17-2023 RBC (Bld) [#/Vol] 2.34 10*6/uL 4.6-6.2 [facility] Blood hemoglobin measurement (mass/volume)Ordered By: Dr. Garrison on 01-17-2023 Hemoglobin (Bld) [Mass/Vol] 6.8 g/dL 13.0-16.5 [facility] Blood hemoglobin measurement (mass/volume)Ordered By: Dr. Grullon on 01-17-2023 Hemoglobin (Bld) [Mass/Vol] 7.5 g/dL 13.0-16.5 [facility] Blood lymphocytes/100 leukoc ytesOrdered By: Dr. Garrison on 01-17-2023 Lymphocytes/100 WBC (Bld) 18.1 % 19- [facility] Blood lymphocytes/100 leukoc ytesOrdered By: Dr. Grullon on 01-17-2023 Lymphocytes/100 WBC (Bld) 17.7 % - [facility] Blood monocytes/100 leukocyt esOrdered By: Dr. Garrison on 01-17-2023 Monocytes/100 WBC (Bld) 12.9 % 0-10 W [facility] [place] Blood monocytes/100 leukocyt esOrdered By: Dr. Grullon on 01-17-2023 Monocytes/100 WBC (Bld) 10.5 % 0-10 [facility] Blood platelet mean volumeOr dered By: Dr. Garrison on 01-17-2023 Platelet mean volume (Bld) [Entitic vol] 9.0 fL 6.2-12.0 [facility] Blood platelet mean volumeOr dered By: Dr. Grullon on 01-17-2023 Platelet mean volume (Bld) [Entitic vol] 9.4 fL 6.2-12.0 [facility] Determination of erythrocyte mean corpuscular volume (MCV)Ordered By: Dr. Garrison on 01-17-2023 MCV (RBC) [Entitic vol] 103.7 fL 80-94 [facility] Determination of erythrocyte mean corpuscular volume (MCV)Ordered By: Dr. Grullon on 01-17-2023 MCV (RBC) [Entitic vol] 101.7 fL 80-94 [facility] Direct bilirubinOrdered By: Dr. Grullon on 01-17-2023 Bilirubin.direct [Mass/Vol] 0.39 mg/dL 0.00-0.30 [facility] Hematocrit Auto (Bld) [Volum e fraction]Ordered By: Dr. Garrison on 01-17-2023 Hematocrit (Bld) [Volume fraction] 22.2 % 40-54 [facility] Hematocrit Auto (Bld) [Volum e fraction]Ordered By: Dr. Grullon on 01-17-2023 Hematocrit (Bld) [Volume fraction] 23.8 % 40-54 [facility] INR in Blood by Coagulation assayOrdered By: Dr. Garrison on 01-17-2023 INR Coag (Bld) [Relative time] 3.6 {INR} [facility] INR in Blood by Coagulation assayOrdered By: Dr. Grullon on 01-17-2023 INR Coag (Bld) [Relative time] 3.4 {INR} [facility] Laboratory - Chemistry and C hemistry - challengeOrdered By: Dr. Garrison on 01-17-2023 ALP [Catalytic activity/Vol] 481 U/L 45-117 [facility] ALT [Catalytic activity/Vol] 71 U/L [facility] CO2 [Moles/Vol] 30.0 mmol/L 21.0-32.0 [facility] Globulin (S) [Mass/Vol] 4.8 g/dL 2.2-4.2 [facility] Urea nitrogen/Creatinine [Mass ratio] 8.7 mg/mg 09-07 [facility] Laboratory - Chemistry and C hemistry - challengeOrdered By: Dr. Grullon on 01-17-2023 ALP [Catalytic activity/Vol] 519 U/L 45-117 [facility] ALT [Catalytic activity/Vol] 74 U/L - [facility] CO2 [Moles/Vol] 28.0 mmol/L 21.0-32.0 [facility] Globulin (S) [Mass/Vol] 5.1 g/dL 2.2-4.2 [facility] Urea nitrogen/Creatinine [Mass ratio] 8.6 mg/mg 09-07 [facility] Laboratory - CoagulationOrde red By: Dr. Garrison on 01-17-2023 PT Coag (PPP) [Time] 35.8 s 11.7-14.9 [facility] Laboratory - CoagulationOrde red By: Dr. Grullon on 01-17-2023 PT Coag (PPP) [Time] 33.8 s 11.7-14.9 [facility] Laboratory - Hematology and Cell countsOrdered By: Dr. Grarison on 01-17-2023 Erythrocyte distribution width (RBC) [Entitic vol] 62.4 fL 35.1-43.9 [facility] Erythrocyte distribution width (RBC) [Ratio] 16.6 % 11.6-14.6 [facility] Immature granulocytes/100 WBC (Bld) 0.600 % 0.0-0.9 [facility] Comment on above: IG% - Immature Granu locytes (promyelocytes, myelocytes and metamyelocytes) > 1% indicates that a LEFT SHIFT is Present. MCH (RBC) [Entitic mass] 31.8 pg 27.0-32.0 [facility] Nucleated RBC/100 WBC (Bld) [Ratio] 0 % 0-5 [facility] Laboratory - Hematology and Cell countsOrdered By: Dr. Grullon on 01-17-2023 Erythrocyte distribution width (RBC) [Entitic vol] 61.4 fL 35.1-43.9 [facility] Erythrocyte distribution width (RBC) [Ratio] 16.7 % 11.6-14.6 [facility] Immature granulocytes/100 WBC (Bld) 0.600 % 0.0-0.9 [facility] Comment on above: IG% - Immature Granu locytes (promyelocytes, myelocytes and metamyelocytes) > 1% indicates that a LEFT SHIFT is Present. MCH (RBC) [Entitic mass] 32.1 pg 27.0-32.0 [facility] Nucleated RBC/100 WBC (Bld) [Ratio] 0 % 0-5 [facility] Lower GI hemoglobin IA Ql (S tl)Ordered By: Karthikeyan Rothman on 01-17-2023 Stool Occult Blood (SANDRA) Positive [facility] MCHC Auto (RBC) [Mass/Vol]Or dered By: Dr. Garrison on 01-17-2023 MCHC (RBC) [Mass/Vol] 30.6 g/dL 32-36 [facility] MCHC Auto (RBC) [Mass/Vol]Or dered By: Dr. Grullon on 01-17-2023 MCHC (RBC) [Mass/Vol] 31.5 g/dL 32-36 [facility] No Panel InformationOrdered By: Dr. Garrison on 01-17-2023 Estimated Creatinine Clearance Calc 8.02 ml/min [facility] Estimated GFR (MDRD) Amer 9 mL/min >60 [facility] Comment on above: GFR Calc Estimated GFR (MDRD) Non-Af Amer 7 mL/min >60 [facility] Comment on above: Non- GFR Calc No Panel InformationOrdered By: Dr. Grullon on 01-17-2023 Estimated GFR (MDRD) Amer 10 mL/min >60 [facility] Comment on above: GFR Calc Estimated GFR (MDRD) Non-Af Amer 8 mL/min >60 [facility] Comment on above: Non- GFR Calc 32.1 pg 27.0-32.0 [facility] 16.7 % 11.6-14.6 [facility] 61.4 fl 35.1-43.9 [facility] 0.600 % 0.0-0.9 [facility] 0 % 0-5 [facility] 8 mL/min >60 [facility] 10 mL/min >60 [facility] 8.6 RATIO 10-20 [facility] 5.1 g/dL 2.2-4.2 [facility] 519 U/L 45-117 [facility] 74 U/L 16-61 [facility] 28.0 mmol/L 21.0-32.0 [facility] Platelets bldOrdered By: Dr. Garrison on 01-17-2023 Platelets (Bld) [#/Vol] 235 10*3/uL 150-450 [facility] Platelets bldOrdered By: Dr. Grullon on 01-17-2023 Platelets (Bld) [#/Vol] 239 10*3/uL 150-450 [facility] Serum or plasma albumin khalif urement (mass/volume)Ordered By: Dr. Garrison on 01-17-2023 Albumin [Mass/Vol] 3.2 g/dL 3.2-5.0 [facility] Serum or plasma albumin khalif urement (mass/volume)Ordered By: Dr. Grullon on 01-17-2023 Albumin [Mass/Vol] 3.2 g/dL 3.2-5.0 [facility] Serum or plasma albumin/glob ulin mass ratioOrdered By: Dr. Garrison on 01-17-2023 Albumin/Globulin [Mass ratio] 0.7 {ratio} 0.9-2.4 [facility] Serum or plasma pwkcu-0-wbar protein tumor marker measurement (units/volume)Ordered By: Dr. Grullon on 01-17-2023 AFP.tumor marker Qn < 1.8 ng/mL 0.0-8.4 [facility] Comment on above: [employer] [place] ectrochemiluminescence Immunoassay(ECLIA)Values obtained with different assay methods or kits cannotbe used interchangeably. Results cannot be interpreted asabsolute evidence of the presence or absence of malignantdisease.This test is not interpretable in females.Performed at: [facility] [id number] Director: Zen Joshi PhD, Phone: [phone] Serum or plasma calcium khalif urement (mass/volume)Ordered By: Dr. Garrison on 01-17-2023 Calcium [Mass/Vol] 9.2 mg/dL 8.5-10.1 [facility] Serum or plasma calcium khalif urement (mass/volume)Ordered By: Dr. Grullon on 01-17-2023 Calcium [Mass/Vol] 9.6 mg/dL 8.5-10.1 [facility] Serum or plasma creatinine m easurement (mass/volume)Ordered By: Dr. Garrison on 01-17-2023 Creatinine [Mass/Vol] 7.67 mg/dL 0.70-1.30 [facility] Comment on above: Critical Result(s) C alled at: 18:40:59 01/17/2023 by: Gabriela Sanderson to [facility]. Results read back by same.The validity of the calculated GFR & GFRAA in patients over 70 years has not been determined. Clinical correlation is essential. Serum or plasma creatinine m easurement (mass/volume)Ordered By: Dr. Grullon on 01-17-2023 Creatinine [Mass/Vol] 7.21 mg/dL 0.70-1.30 [facility] Comment on above: The validity of the calculated GFR & GFRAA in patients over 70 years has not been determined. Clinical correlation is essential. Serum or plasma urea nitroge n measurement (mass/volume)Ordered By: Dr. Garrison on 01-17-2023 Urea nitrogen [Mass/Vol] 67 mg/dL 06-05 [facility] Serum or plasma urea nitroge n measurement (mass/volume)Ordered By: Dr. Grullon on 01-17-2023 Urea nitrogen [Mass/Vol] 62 mg/dL 06-05 [facility] Thin prep Papanicolaou smear with manual screeningOrdered By: Dr. Garrison on 01-17-2023 Thin prep Papanicolaou smear with manual screening 72 U/L [facility] Thin prep Papanicolaou smear with manual screening 9 04-02 [facility] Thin prep Papanicolaou smear with manual screeningOrdered By: Dr. Grullon on 01-17-2023 Thin prep Papanicolaou smear with manual screening 64 U/L [facility] Thin prep Papanicolaou smear with manual screening 11 04-02 [facility] INR in Blood by Coagulation assayOrdered By: Dr. Grullon on 01-03-2023 INR Coag (Bld) [Relative time] 3.6 {INR} [facility] Laboratory - CoagulationOrde red By: Dr. Grullon on 01-03-2023 PT Coag (PPP) [Time] 35.7 s 11.7-14.9 [facility] No Panel InformationOrdered By: Dr. Grullon on 01-03-2023 35.7 SECONDS 11.7-14.9 [facility] Basophil percentageOrdered B y: Dr. Grullon on 12-06-2022 Basophil percentage TNP [facility] Comment on above: Test not performed Basophil percentage 8.4 g/dL 6.4-8.2 [facility] Basophil percentage 1.00 mg/dL 0.20-1.00 [facility] Bilirubin [Mass/Vol] 1.00 mg/dL 0.20-1.00 [facility] Comment on above: For patients on eltr ombopag therapy, use of Dimension [place] TBIL is not recommended. Protein [Mass/Vol] 8.4 g/dL 6.4-8.2 [facility] Direct bilirubinOrdered By: Dr. Grullon on 12-06-2022 Bilirubin.direct [Mass/Vol] 0.61 mg/dL 0.00-0.30 [facility] INR in Blood by Coagulation assayOrdered By: Dr. Grullon on 12-06-2022 INR Coag (Bld) [Relative time] 2.4 {INR} [facility] Laboratory - Chemistry and C hemistry - challengeOrdered By: Dr. Grullon on 12-06-2022 ALP [Catalytic activity/Vol] 557 U/L 45-117 [facility] ALT [Catalytic activity/Vol] 143 U/L - [facility] Globulin (S) [Mass/Vol] 5.3 g/dL 2.2-4.2 [facility] Laboratory - CoagulationOrde red By: Dr. Grullon on 12-06-2022 PT Coag (PPP) [Time] 25.6 s 11.7-14.9 [facility] No Panel InformationOrdered By: Dr. Grullon on 12-06-2022 Addendum Document Comment . [facility] Comment on above: The quantitative ran ge of this assay is 15 IU/mL to 100million IU/mL. Hepatitis A Antibody Total Positive Negative [facility] Hepatitis B Core IgM Antibody Negative Negative [facility] Comment on above: Performed at: [employer] [facility] [id number] Director: Kenny Akbar MD, Phone: [phone] at: [employer] [facility] [id number] Director: Zen Joshi PhD, Phone: [phone] Hepatitis B Surface Antigen Non-Reactive Nonreactive [facility] Hepatitis C Antibody Non-Reactive Nonreactive [facility] Comment on above: Non Reactive: < 0.8 Equivocal: >/= 0.8 to < 1.0 Reactive: >/= 1.0The CDC recommends that a reactive/equivocal HCV antibody result be followed up by the HCV Nucleic Acid Amplificationtest (309631) 25.6 SECONDS 11.7-14.9 [facility] 5.3 g/dL 2.2-4.2 [facility] 557 U/L 45-117 [facility] 143 U/L - [facility] Positive Negative [facility] Negative Negative [facility] Non-Reactive Nonreactive [facility] Serum or plasma albumin khalif urement (mass/volume)Ordered By: Dr. Grullon on 12-06-2022 Albumin [Mass/Vol] 3.1 g/dL 3.2-5.0 [facility] Serum or plasma hepatitis C virus RNA measurement by probe and target amplification mOrdered By: Dr. Grullon on 12-06-2022 HCV RNA RENETTA+probe Qn Not detected . [facility] Thin prep Papanicolaou smear with manual screeningOrdered By: Dr. Grullon on 12-06-2022 Thin prep Papanicolaou smear with manual screening 101 U/L 15-37 [facility] Albumin Elph [Mass/Vol]on Albumin [Mass/Vol] 3.6 g/dL 2.9-4.4 [facility] Basophil percentageOrdered B y: Dr. Miranda on 11-22-2022 Basophil percentage 101 mg/dL 74-106 [facility] Basophil percentage 136 mmol/L 136-145 [facility] Basophil percentage 5.1 mmol/L 3.5-5.1 [facility] Basophil percentage 97 mmol/L 98-107 [facility] Basophils (Bld) [#/Vol] 9.5 10*3/uL 4.4-11.0 [facility] Chloride [Moles/Vol] 97 mmol/L 98-107 [facility] Glucose [Mass/Vol] 101 mg/dL 74-106 [facility] Comment on above: Fasting Glucose resu lt from 100 to 125 mg/dL suggests IMPAIRED HOMEOSTASIS per A.D.A. criteria. Potassium [Moles/Vol] 5.1 mmol/L 3.5-5.1 [facility] Sodium [Moles/Vol] 136 mmol/L 136-145 [facility] WBC (Bld) [#/Vol] 9.5 10*3/uL 4.4-11.0 [facility] Ammonia (P) [Moles/Vol] 27.0 umol/L 11-32 [facility] Basophil percentage 27.0 umol/L 11-32 [facility] Basophil percentageon 2022 Basophil percentage Comment: . [facility] Comment on above: Presence of monoclon al protein is unclear at this time. Suggestrepeat in 3 to 6 months if clinically indicated.Performed at: - [facility] [id number] Director: Zen Joshi PhD, Phone: [phone] Blood erythrocytes count (nu mber/volume)Ordered By: Dr. Miranda on 11-22-2022 RBC (Bld) [#/Vol] 3.20 10*6/uL 4.6-6.2 [facility] Blood hemoglobin measurement (mass/volume)Ordered By: Dr. Miranda on 11-22-2022 Hemoglobin (Bld) [Mass/Vol] 10.3 g/dL 13.0-16.5 [facility] Blood platelet mean volumeOr dered By: Dr. Miranda on 11-22-2022 Platelet mean volume (Bld) [Entitic vol] 9.3 fL 6.2-12.0 [facility] Determination of erythrocyte mean corpuscular volume (MCV)Ordered By: Dr. Miranda on 11-22-2022 MCV (RBC) [Entitic vol] 102.2 fL 80-94 [facility] Hematocrit Auto (Bld) [Volum e fraction]Ordered By: Dr. Miranda on 11-22-2022 Hematocrit (Bld) [Volume fraction] 32.7 % 40-54 [facility] Interpretation of serum or p lasma protein pattern by immunofixation (narrative resulton 11-22-2022 Protein Fractions Immunofixation [place] [Interp] See comment [facility] Comment on above: NOT OBSERVED Laboratory - Chemistry and C hemistry - challengeOrdered By: Dr. Miranda on 11-22-2022 CO2 [Moles/Vol] 32.0 mmol/L 21.0-32.0 [facility] Urea nitrogen/Creatinine [Mass ratio] 6.6 mg/mg 10-20 [facility] Laboratory - CoagulationOrde red By: Dr. Miranda on 11-22-2022 aPTT Coag (Bld) [Time] 63.2 s 24.1-36.2 [facility] Laboratory - Hematology and Cell countsOrdered By: Dr. Miranda on 11-22-2022 Erythrocyte distribution width (RBC) [Entitic vol] 62.9 fL 35.1-43.9 [facility] Erythrocyte distribution width (RBC) [Ratio] 17.2 % 11.6-14.6 [facility] MCH (RBC) [Entitic mass] 32.2 pg 27.0-32.0 [facility] Auto (RBC) [Mass/Vol]Or dered By: Dr. Miranda on 11-22-2022 MCHC (RBC) [Mass/Vol] 31.5 g/dL 32-36 [facility] No Panel InformationOrdered By: Dr. Miranda on 11-22-2022 Estimated GFR (MDRD) Amer 9 mL/min >60 [facility] Comment on above: GFR Calc Estimated GFR (MDRD) Non-Af Amer 8 mL/min >60 [facility] Comment on above: Non- GFR Calc 32.2 pg 27.0-32.0 [facility] 17.2 % 11.6-14.6 [facility] 62.9 fl 35.1-43.9 [facility] 63.2 Seconds 24.1-36.2 [facility] 8 mL/min >60 [facility] 9 mL/min >60 [facility] 6.6 RATIO 10-20 [facility] 32.0 mmol/L 21.0-32.0 [facility] No Panel Informationon 11-22 Addendum Document Comment . [facility] Comment on above: Protein electrophore sis scan will follow via computer,mail, or mechanical engineering teacher delivery. Free Lambda Light Chains, Quant 166.5 mg/L 5.7-26.3 [facility] 166.5 mg/L 5.7-26.3 [facility] Platelets bldOrdered By: Dr. Miranda on 11-22-2022 Platelets (Bld) [#/Vol] 268 10*3/uL 150-450 [facility] Serum vxood-3-qlzpaoaw measu rement by electrophoresison 11-22-2022 Alpha 1 globulin Elph [Mass/Vol] 0.5 g/dL 0.0-0.4 [facility] Alpha 1 globulin Elph [Mass/Vol] 0.8 g/dL 0.4-1.0 [facility] Serum immunoglobulin kappa l ight chains/immunoglobulin lambda light chains mass ratioon 11-22-2022 Immunoglobulin light chains.kappa/Immunoglob ulin light chains.lambda (S) [Mass ratio] 1.77 0.26-1.65 [facility] Serum or plasma IgA measurem ent (mass/volume)on 11-22-2022 IgA [Mass/Vol] 147 mg/dL 61-437 [facility] Serum or plasma IgG measurem ent (mass/volume)on 11-22-2022 IgG [Mass/Vol] 1495 mg/dL 603-1613 [facility] Serum or plasma IgM measurem ent (mass/volume)on 11-22-2022 IgM [Mass/Vol] 785 mg/dL 15-143 [facility] Comment on above: Results confirmed on dilution. Serum or plasma beta globuli n measurement by electrophoresis (mass/volume)on 11-22-2022 Beta globulin Elph [Mass/Vol] 1.2 g/dL 0.7-1.3 [facility] Serum or plasma calcium khalif urement (mass/volume)Ordered By: Dr. Miranda on 11-22-2022 Calcium [Mass/Vol] 9.4 mg/dL 8.5-10.1 [facility] Serum or plasma creatinine m easurement (mass/volume)Ordered By: Dr. Miranda on 11-22-2022 Creatinine [Mass/Vol] 7.58 mg/dL 0.70-1.30 [facility] Comment on above: Critical Result(s) C alled at: 11:20:48 11/22/2022 by: Shana Herman to Adalgisa Lofton. Results read back by same.The validity of the calculated GFR & GFRAA in patients over 70 years has not been determined. Clinical correlation is essential. Serum or plasma gamma globul in measurement by electrophoresis (mass/volume)on 11-22-2022 Gamma globulin Elph [Mass/Vol] 1.9 g/dL 0.4-1.8 [facility] Serum or plasma immunoelectr ophoresis interpretation (nominal result)on 11-22-2022 Interpretation IEP [Interp] Comment . [facility] Comment on above: No monoclonality det ected. Serum or plasma immunoglobul in kappa light chains measurement (mass/volume)on 11-22-2022 Immunoglobulin light chains.kappa [Mass/Vol] 294.0 mg/L 3.3-19.4 [facility] Serum or plasma urea nitroge n measurement (mass/volume)Ordered By: Dr. Miranda on 01-04-2023 Urea nitrogen [Mass/Vol] 50 mg/dL 7-18 [facility] Thin prep Papanicolaou smear with manual screeningOrdered By: Dr. Miranda on 11-22-2022 Thin prep Papanicolaou smear with manual screening 7 5-15 [facility] Thin prep Papanicolaou smear with manual screeningon 11-22-2022 Thin prep Papanicolaou smear with manual screening 0.9 0.7-1.7 [facility] Total protein bloodon 2022 Protein [Mass/Vol] 8.0 g/dL 6.0-8.5 [facility] INR in Blood by Coagulation assayOrdered By: Dr. Grullon on 11-06-2022 INR Coag (Bld) [Relative time] 2.4 {INR} [facility] Laboratory - CoagulationOrde red By: Dr. Grullon on 11-06-2022 PT Coag (PPP) [Time] 25.7 s 11.7-14.9 [facility] INR in Blood by Coagulation assayOrdered By: Dr. Grullon on 10-16-2022 INR Coag (Bld) [Relative time] 2.8 {INR} [facility] Laboratory - CoagulationOrde red By: Dr. Grullon on 10-16-2022 PT Coag (PPP) [Time] 29.0 s 11.7-14.9 [facility] Absolute lymphocyte countOrd ered By: Deja Jewell on 09-29-2022 Lymphocytes Auto (Unsp spec) [#/Vol] 1.69 10*3/uL 0.83-4.51 [facility] Basophil percentageOrdered B y: Deja Jewell on 09-29-2022 Basophils/100 WBC (Bld) 0.9 % 0-1 [facility] Eosinophils/100 WBC (Bld) 5.1 % 0-5 [facility] Neutrophils (Bld) [#/Vol] 3.8 10*3/uL 2.0-7.7 [facility] Neutrophils/100 WBC (Bld) 55.8 % 47-70 [facility] WBC (Bld) [#/Vol] 6.8 10*3/uL 4.4-11.0 [facility] Blood erythrocytes count (nu mber/volume)Ordered By: Deja Jewell on 09-29-2022 RBC (Bld) [#/Vol] 3.93 10*6/uL 4.6-6.2 [facility] Blood hemoglobin measurement (mass/volume)Ordered By: Deja Jewell on 09-29-2022 Hemoglobin (Bld) [Mass/Vol] 12.4 g/dL 13.0-16.5 [facility] Blood lymphocytes/100 leukoc ytesOrdered By: Deja Jewell on 09-29-2022 Lymphocytes/100 WBC (Bld) 24.9 % 19-41 [facility] Blood monocytes/100 leukocyt esOrdered By: Deja Jewell on 09-29-2022 Monocytes/100 WBC (Bld) 13.2 % 0-10 [facility] [place] Blood platelet mean volumeOr dered By: Deja Jewell on 09-29-2022 Platelet mean volume (Bld) [Entitic vol] 10.2 fL 6.2-12.0 [facility] Determination of erythrocyte mean corpuscular volume (MCV)Ordered By: Deja Jewell on 09-29-2022 MCV (RBC) [Entitic vol] 99.0 fL 80-94 [facility] [place] Hematocrit Auto (Bld) [Volum e fraction]Ordered By: Deja Jewell on 09-29-2022 Hematocrit (Bld) [Volume fraction] 38.9 % 40-54 [facility] Laboratory - Chemistry and C hemistry - challengeOrdered By: Dr. Grullon on 09-29-2022 Free T4 [Mass/Vol] 1.13 ng/dL 0.76-1.46 [facility] Laboratory - Hematology and Cell countsOrdered By: Deja Jewell on 09-29-2022 Erythrocyte distribution width (RBC) [Entitic vol] 54.4 fL 35.1-43.9 [facility] Erythrocyte distribution width (RBC) [Ratio] 14.8 % 11.6-14.6 [facility] Immature granulocytes/100 WBC (Bld) 0.100 % 0.0-0.9 [facility] Comment on above: IG% - Immature Granu locytes (promyelocytes, myelocytes and metamyelocytes) > 1% indicates that a LEFT SHIFT is Present. MCH (RBC) [Entitic mass] 31.6 pg 27.0-32.0 [facility] Nucleated RBC/100 WBC (Bld) [Ratio] 0 % 0-5 [facility] Lower GI hemoglobin IA Ql (S tl)Ordered By: Deja Jewell on 09-29-2022 Stool Occult Blood (SANDRA) Positive [facility] MCHC Auto (RBC) [Mass/Vol]Or dered By: Deja Jewell on 09-29-2022 MCHC (RBC) [Mass/Vol] 31.9 g/dL 32-36 [facility] No Panel InformationOrdered By: Dr. Grullon on 09-29-2022 Thyroid Stimulating Hormone (TSH) 0.72 uIU/mL 0.358-3.74 [facility] Platelets bldOrdered By: Ritu Jewell on 09-29-2022 Platelets (Bld) [#/Vol] 163 10*3/uL 150-450 [facility] INR in Blood by Coagulation assayOrdered By: Dr. Grullon on 09-18-2022 INR Coag (Bld) [Relative time] 2.3 {INR} [facility] Laboratory - CoagulationOrde red By: Dr. Grullon on 09-18-2022 PT Coag (PPP) [Time] 25.0 s 11.7-14.9 [facility] Absolute lymphocyte countOrd ered By: Dr. Ferrara on 09-04-2022 Lymphocytes Auto (Unsp spec) [#/Vol] 1.26 10*3/uL 0.83-4.51 [facility] Basophil percentageOrdered B y: Dr. Ferrara on 09-04-2022 Basophils/100 WBC (Bld) 0.8 % 0-1 [facility] [place] Eosinophils/100 WBC (Bld) 7.1 % 0-5 [facility] Neutrophils (Bld) [#/Vol] 3.7 10*3/uL 2.0-7.7 [facility] Neutrophils/100 WBC (Bld) 58.9 % 47-70 [facility] WBC (Bld) [#/Vol] 6.2 10*3/uL 4.4-11.0 [facility] Blood erythrocytes count (nu mber/volume)Ordered By: Dr. Ferrara on 09-04-2022 RBC (Bld) [#/Vol] 3.67 10*6/uL 4.6-6.2 [facility] Blood hemoglobin measurement (mass/volume)Ordered By: Dr. Ferrara on 09-04-2022 Hemoglobin (Bld) [Mass/Vol] 11.6 g/dL 13.0-16.5 [facility] Blood lymphocytes/100 leukoc ytesOrdered By: Dr. Ferrara on 09-04-2022 Lymphocytes/100 WBC (Bld) 20.2 % 19-41 [facility] Blood monocytes/100 leukocyt esOrdered By: Dr. Ferrara on 09-04-2022 Monocytes/100 WBC (Bld) 12.8 % 0-10 [facility] [place] Blood platelet mean volumeOr dered By: Dr. Ferrara on 09-04-2022 Platelet mean volume (Bld) [Entitic vol] 10.1 fL 6.2-12.0 [facility] Determination of erythrocyte mean corpuscular volume (MCV)Ordered By: Dr. Ferrara on 09-04-2022 MCV (RBC) [Entitic vol] 100.3 fL 80-94 [facility] [place] Hematocrit Auto (Bld) [Volum e fraction]Ordered By: Dr. Ferrara on 09-04-2022 Hematocrit (Bld) [Volume fraction] 36.8 % 40-54 [facility] Laboratory - Hematology and Cell countsOrdered By: Dr. Ferrara on 09-04-2022 Erythrocyte distribution width (RBC) [Entitic vol] 59.2 fL 35.1-43.9 [facility] Erythrocyte distribution width (RBC) [Ratio] 16.1 % 11.6-14.6 [facility] Immature granulocytes/100 WBC (Bld) 0.200 % 0.0-0.9 [facility] Comment on above: IG% - Immature Granu locytes (promyelocytes, myelocytes and metamyelocytes) > 1% indicates that a LEFT SHIFT is Present. MCH (RBC) [Entitic mass] 31.6 pg 27.0-32.0 [facility] Nucleated RBC/100 WBC (Bld) [Ratio] 0 % 0-5 [facility] MCHC Auto (RBC) [Mass/Vol]Or dered By: Dr. Ferrara on 09-04-2022 MCHC (RBC) [Mass/Vol] 31.5 g/dL 32-36 [facility] Platelets bldOrdered By: Dr. Ferrara on 09-04-2022 Platelets (Bld) [#/Vol] 164 10*3/uL 150-450 [facility] INR in Blood by Coagulation assayOrdered By: Dr. Grullon on 08-28-2022 INR Coag (Bld) [Relative time] 4.1 {INR} [facility] Comment on above: CRITICAL VALUE VERIF IED. CALLED TO TRINA CORMIER08/28/22 1324 Sherley Mckeon.RESULTS READ BACK BY SAME . Laboratory - CoagulationOrde red By: Dr. Grullon on 08-28-2022 PT Coag (PPP) [Time] 39.5 s 11.7-14.9 [facility] INR in Blood by Coagulation assayon 08-17-2022 INR Coag (Bld) [Relative time] 5.9 {INR} [facility] Work Phone: Comment on above: CRITICAL VALUE VERIF IED. [facility]08/17[facility]22 1134 Hubert De Los Santos.RESULTS READ BACK BY SAME. Laboratory - Coagulationon 0 08-17-2022 PT Coag (PPP) [Time] 52.7 s 11.7-14.9 [facility] Work Phone: INR in Blood by Coagulation assayon 08-03-2022 INR Coag (Bld) [Relative time] 3.3 {INR} [facility] Work Phone: [phone] Laboratory - Coagulationon 0 08-03-2022 PT Coag (PPP) [Time] 33.3 s 11.7-14.9 [facility] Work Phone: Absolute lymphocyte counton 07-28-2022 Lymphocytes Auto (Unsp spec) [#/Vol] 1.04 10*3/uL 0.83-4.51 [facility] Work Phone: Basophil percentageon 2021 Basophils/100 WBC (Bld) 0.5 % 0-1 [facility] [place] Work Phone: [phone] Eosinophils/100 WBC (Bld) 5.2 % 0-5 [facility] Work Phone: Neutrophils (Bld) [#/Vol] 3.7 10*3/uL 2.0-7.7 [facility] Work Phone: Neutrophils/100 WBC (Bld) 63.4 % 47-70 [facility] Work Phone: [phone] WBC (Bld) [#/Vol] 5.8 10*3/uL 4.4-11.0 [facility] Work Phone: [phone] Blood erythrocytes count (nu mber/volume)on 07-28-2022 RBC (Bld) [#/Vol] 2.57 10*6/uL 4.6-6.2 [facility] Work Phone: Blood hemoglobin measurement (mass/volume)on 07-28-2022 Hemoglobin (Bld) [Mass/Vol] 8.2 g/dL 13.0-16.5 [facility] Work Phone: Blood lymphocytes/100 leukoc yteson 07-28-2022 Lymphocytes/100 WBC (Bld) 17.9 % 19-41 [facility] Work Phone: Blood monocytes/100 leukocyt eson 07-28-2022 Monocytes/100 WBC (Bld) 12.7 % 0-10 [facility] [place] Work Phone: Blood platelet mean volumeon 07-28-2022 Platelet mean volume (Bld) [Entitic vol] 10.0 fL 6.2-12.0 [facility] Work Phone: Determination of erythrocyte mean corpuscular volume (MCV)on 07-28-2022 MCV (RBC) [Entitic vol] 102.7 fL 80-94 [facility] [place] Work Phone: Hematocrit Auto (Bld) [Volum e fraction]on 07-28-2022 Hematocrit (Bld) [Volume fraction] 26.4 % 40-54 [facility] Work Phone: Laboratory - Hematology and Cell countson 07-28-2022 Erythrocyte distribution width (RBC) [Entitic vol] 63.8 fL 35.1-43.9 [facility] Work Phone: Erythrocyte distribution width (RBC) [Ratio] 17.0 % 11.6-14.6 [facility] Work Phone: Immature granulocytes/100 WBC (Bld) 0.300 % 0.0-0.9 [facility] Work Phone: Comment on above: IG% - Immature Granu locytes (promyelocytes, myelocytes and metamyelocytes) > 1% indicates that a LEFT SHIFT is Present. MCH (RBC) [Entitic mass] 31.9 pg 27.0-32.0 [facility] Work Phone: Nucleated RBC/100 WBC (Bld) [Ratio] 0 % 0-5 [facility] Work Phone: MCHC Auto (RBC) [Mass/Vol]on 07-28-2022 MCHC (RBC) [Mass/Vol] 31.1 g/dL 32-36 [facility] Work Phone: [phone] Platelets bldon 07-28-2022 Platelets (Bld) [#/Vol] 103 10*3/uL 150-450 [facility] Work Phone: Basophil percentageon 2021 Bilirubin [Mass/Vol] 0.70 mg/dL 0.20-1.00 [facility] Work Phone: Comment on above: For patients on eltr ombopag therapy, use of Dimension [place] TBIL is not recommended. Chloride [Moles/Vol] 99 mmol/L 98-107 [facility] Work Phone: Glucose [Mass/Vol] 142 mg/dL 74-106 [facility] Work Phone: Comment on above: Fasting Glucose resu lt greater than or equal to 126 mg/dL suggests DIABETES MELLITUS per A.D.A. criteria. Potassium [Moles/Vol] 3.8 mmol/L 3.5-5.1 [facility] Work Phone: Protein [Mass/Vol] 6.2 g/dL 6.4-8.2 [facility] Work Phone: Sodium [Moles/Vol] 136 mmol/L 136-145 [facility] Work Phone: Direct bilirubinon 2 Bilirubin.direct [Mass/Vol] 0.41 mg/dL 0.00-0.30 [facility] Work Phone: Laboratory - Chemistry and C hemistry - challengeon 07-20-2022 ALP [Catalytic activity/Vol] 297 U/L 45-117 [facility] Work Phone: ALT [Catalytic activity/Vol] 26 U/L 16-61 [facility] Work Phone: CO2 [Moles/Vol] 25.0 mmol/L 21.0-32.0 [facility] Work Phone: Globulin (S) [Mass/Vol] 3.4 g/dL 2.2-4.2 [facility] [place] Work Phone: Urea nitrogen/Creatinine [Mass ratio] 7.6 mg/mg 10-20 [facility] Work Phone: Laboratory - Coagulationon 0 07-20-2022 aPTT Coag (Bld) [Time] 37.8 s 24.1-36.2 [facility] Work Phone: No Panel Informationon 07-20 Estimated GFR (MDRD) Amer 10 mL/min >60 [facility] Work Phone: Comment on above: GFR Calc Estimated GFR (MDRD) Non-Af Amer 8 mL/min >60 [facility] Work Phone: Comment on above: Non- GFR Calc Serum or plasma albumin khalif urement (mass/volume)on 07-20-2022 Albumin [Mass/Vol] 2.8 g/dL 3.2-5.0 [facility] Work Phone: Serum or plasma [id number] protein tumor marker measurement (units/volume)on 07-20-2022 AFP.tumor marker Qn 1.1 ng/mL 0.0-8.4 [facility] Work Phone: Comment on above: [employer] [place] ectrochemiluminescence Immunoassay(ECLIA)Values obtained with different assay methods or kits cannotbe used interchangeably. Results cannot be interpreted asabsolute evidence of the presence or absence of malignantdisease.This test is not interpretable in females.Performed at: [facility] [address] [id number] Director: Zen Joshi PhD, Phone: [phone] Serum or plasma calcium khalif urement (mass/volume)on 07-20-2022 Calcium [Mass/Vol] 7.4 mg/dL 8.5-10.1 [facility] Work Phone: Serum or plasma creatinine m easurement (mass/volume)on 07-20-2022 Creatinine [Mass/Vol] 6.95 mg/dL 0.70-1.30 [facility] Work Phone: Comment on above: The validity of the calculated GFR & GFRAA in patients over 70 years has not been determined. Clinical correlation is essential. Serum or plasma urea nitroge n measurement (mass/volume)on 07-20-2022 Urea nitrogen [Mass/Vol] 53 mg/dL 7-18 [facility] Work Phone: Thin prep Papanicolaou smear with manual screeningon 07-20-2022 Thin prep Papanicolaou smear with manual screening 31 U/L 15-37 [facility] Work Phone: Thin prep Papanicolaou smear with manual screening 12 5-15 [facility] Work Phone: Absolute lymphocyte counton 07-18-2022 Lymphocytes Auto (Unsp spec) [#/Vol] 0.97 10*3/uL 0.83-4.51 [facility] Work Phone: Basophil percentageon 2021 Basophils/100 WBC (Bld) 0.6 % 0-1 [facility] [place] Work Phone: [phone] Bilirubin [Mass/Vol] 0.80 mg/dL 0.20-1.00 [facility] Work Phone: Comment on above: For patients on eltr ombopag therapy, use of [employer] [place] TBIL is not recommended. Chloride [Moles/Vol] 95 mmol/L 98-107 [facility] Work Phone: [phone] Eosinophils/100 WBC (Bld) 5.8 % 0-5 [facility] Work Phone: Glucose [Mass/Vol] 83 mg/dL 74-106 [facility] Work Phone: Neutrophils (Bld) [#/Vol] 4.5 10*3/uL 2.0-7.7 [facility] Work Phone: Neutrophils/100 WBC (Bld) 66.9 % 47-70 [facility] Work Phone: [phone] Potassium [Moles/Vol] 3.9 mmol/L 3.5-5.1 [facility] Work Phone: [phone] Protein [Mass/Vol] 5.7 g/dL 6.4-8.2 [facility] Work Phone: Sodium [Moles/Vol] 133 mmol/L 136-145 [facility] Work Phone: [phone] WBC (Bld) [#/Vol] 6.7 10*3/uL 4.4-11.0 [facility] Work Phone: Blood erythrocytes count (nu mber/volume)on 07-18-2022 RBC (Bld) [#/Vol] 2.59 10*6/uL 4.6-6.2 [facility] Work Phone: [phone] Blood hemoglobin measurement (mass/volume)on 07-18-2022 Hemoglobin (Bld) [Mass/Vol] 8.1 g/dL 13.0-16.5 [facility] Work Phone: Blood lymphocytes/100 leukoc yteson 07-18-2022 Lymphocytes/100 WBC (Bld) 14.4 % 19-41 [facility] Work Phone: [phone] Blood monocytes/100 leukocyt eson 07-18-2022 Monocytes/100 WBC (Bld) 11.9 % 0-10 [facility] [place] Work Phone: Blood platelet mean volumeon 07-18-2022 Platelet mean volume (Bld) [Entitic vol] 9.6 fL 6.2-12.0 [facility] Work Phone: Determination of erythrocyte mean corpuscular volume (MCV)on 07-18-2022 MCV (RBC) [Entitic vol] 95.8 fL 80-94 [facility] [place] Work Phone: Hematocrit Auto (Bld) [Volum e fraction]on 07-18-2022 Hematocrit (Bld) [Volume fraction] 24.8 % 40-54 [facility] Work Phone: INR in Blood by Coagulation assayon 07-18-2022 INR Coag (Bld) [Relative time] 3.4 {INR} [facility] Work Phone: Laboratory - Chemistry and C hemistry - challengeon 07-18-2022 ALP [Catalytic activity/Vol] 275 U/L 45-117 [facility] Work Phone: ALT [Catalytic activity/Vol] 26 U/L 16-61 [facility] Work Phone: CO2 [Moles/Vol] 29.0 mmol/L 21.0-32.0 [facility] Work Phone: Globulin (S) [Mass/Vol] 3.1 g/dL 2.2-4.2 [facility] [place] Work Phone: Urea nitrogen/Creatinine [Mass ratio] 7.8 mg/mg 10-20 [facility] Work Phone: Laboratory - Coagulationon 0 07-18-2022 PT Coag (PPP) [Time] 34.4 s 11.7-14.9 [facility] Work Phone: Laboratory - Hematology and Cell countson 07-18-2022 Erythrocyte distribution width (RBC) [Entitic vol] 57.6 fL 35.1-43.9 [facility] Work Phone: Erythrocyte distribution width (RBC) [Ratio] 16.8 % 11.6-14.6 [facility] Work Phone: Immature granulocytes/100 WBC (Bld) 0.400 % 0.0-0.9 [facility] Work Phone: Comment on above: IG% - Immature Granu locytes (promyelocytes, myelocytes and metamyelocytes) > 1% indicates that a LEFT SHIFT is Present. MCH (RBC) [Entitic mass] 31.3 pg 27.0-32.0 [facility] Work Phone: Nucleated RBC/100 WBC (Bld) [Ratio] 0 % 0-5 [facility] Work Phone: MCHC Auto (RBC) [Mass/Vol]on 07-18-2022 MCHC (RBC) [Mass/Vol] 32.7 g/dL 32-36 [facility] Work Phone: No Panel Informationon 07-18 Estimated Creatinine Clearance Calc 15.89 ml/min [facility] Work Phone: Estimated GFR (MDRD) Amer 20 mL/min >60 [facility] Work Phone: Comment on above: GFR Calc Estimated GFR (MDRD) Non-Af Amer 16 mL/min >60 [facility] Work Phone: Comment on above: Non- GFR Calc Platelets bldon 07-18-2022 Platelets (Bld) [#/Vol] 133 10*3/uL 150-450 [facility] Work Phone: Serum or plasma albumin khalif urement (mass/volume)on 07-18-2022 Albumin [Mass/Vol] 2.6 g/dL 3.2-5.0 [facility] Work Phone: Serum or plasma albumin/glob ulin mass ratioon 07-18-2022 Albumin/Globulin [Mass ratio] 0.8 {ratio} 0.9-2.4 [facility] Work Phone: Serum or plasma calcium khalif urement (mass/volume)on 07-18-2022 Calcium [Mass/Vol] 7.4 mg/dL 8.5-10.1 [facility] Work Phone: Serum or plasma creatinine m easurement (mass/volume)on 07-18-2022 Creatinine [Mass/Vol] 3.87 mg/dL 0.70-1.30 [facility] Work Phone: Comment on above: The validity of the calculated GFR & GFRAA in patients over 70 years has not been determined. Clinical correlation is essential. Serum or plasma urea nitroge n measurement (mass/volume)on 07-18-2022 Urea nitrogen [Mass/Vol] 30 mg/dL 7-18 [facility] Work Phone: Thin prep Papanicolaou smear with manual screeningon 07-18-2022 Thin prep Papanicolaou smear with manual screening 39 U/L 15-37 [facility] Work Phone: Thin prep Papanicolaou smear with manual screening 9 5-15 [facility] Work Phone: Basophil percentageon 2021 Basophil percentage 6.0 mg/dL 2.5-4.9 [facility] Work Phone: Laboratory - Chemistry and C hemistry - challengeon 07-17-2022 Magnesium [Mass/Vol] 2.0 mg/dL 1.6-2.6 [facility] Work Phone: Absolute lymphocyte counton 07-15-2022 Lymphocytes Auto (Unsp spec) [#/Vol] 0.72 10*3/uL 0.83-4.51 [facility] Work Phone: Basophil percentageon 2021 Basophil percentage 0-5 SEEN /hpf 0-5 [facility] Work Phone: Ammonia (P) [Moles/Vol] 46.0 umol/L 11-32 [facility] Work Phone: [phone] Basophils/100 WBC (Bld) 0.2 % 0-1 [facility] [place] Work Phone: Bilirubin [Mass/Vol] 0.70 mg/dL 0.20-1.00 [facility] Work Phone: Comment on above: For patients on eltr ombopag therapy, use of Dim[employer] [place] TBIL is not recommended. Chloride [Moles/Vol] 99 mmol/L 98-107 [facility] Work Phone: [phone] Eosinophils/100 WBC (Bld) 1.5 % 0-5 [facility] Work Phone: [phone] Glucose [Mass/Vol] 95 mg/dL 74-106 [facility] Work Phone: Neutrophils (Bld) [#/Vol] 4.1 10*3/uL 2.0-7.7 [facility] Work Phone: Neutrophils/100 WBC (Bld) 75.5 % 47-70 [facility] Work Phone: [phone] Potassium [Moles/Vol] 4.2 mmol/L 3.5-5.1 [facility] Work Phone: Protein [Mass/Vol] 6.3 g/dL 6.4-8.2 [facility] Work Phone: [phone] Sodium [Moles/Vol] 138 mmol/L 136-145 [facility] Work Phone: WBC (Bld) [#/Vol] 5.4 10*3/uL 4.4-11.0 [facility] Work Phone: Bilirubin Test strip Ql (U)o n 07-15-2022 Bilirubin Ql (U) 1 mg/dL Negative [facility] Work Phone: Comment on above: COLOR OF URINE MAY A FFECT DIPSTICK RESULTS. Blood erythrocytes count (nu mber/volume)on 07-15-2022 RBC (Bld) [#/Vol] 1.59 10*6/uL 4.6-6.2 [facility] Work Phone: Blood hemoglobin measurement (mass/volume)on 07-15-2022 Hemoglobin (Bld) [Mass/Vol] 5.4 g/dL 13.0-16.5 [facility] Work Phone: Blood lymphocytes/100 leukoc yteson 07-15-2022 Lymphocytes/100 WBC (Bld) 13.2 % 19-41 [facility] Work Phone: Blood monocytes/100 leukocyt eson 07-15-2022 Monocytes/100 WBC (Bld) 9.2 % 0-10 [facility] [place] Work Phone: Blood platelet adequacy dete ction by light microscopyon 07-15-2022 Platelets LM Ql (Bld) 5.4 ADEQ [facility] Work Phone: Blood platelet mean volumeon 07-15-2022 Platelet mean volume (Bld) [Entitic vol] 9.4 fL 6.2-12.0 [facility] Work Phone: Determination of erythrocyte mean corpuscular volume (MCV)on 07-15-2022 MCV (RBC) [Entitic vol] 99.4 fL 80-94 [facility] [place] Work Phone: Direct bilirubinon 2 Bilirubin.direct [Mass/Vol] 0.37 mg/dL 0.00-0.30 [facility] Work Phone: Hematocrit Auto (Bld) [Volum e fraction]on 07-15-2022 Hematocrit (Bld) [Volume fraction] 15.8 % 40-54 [facility] Work Phone: Hypochromatic red blood cell detectionon 07-15-2022 Hypochromia Ql (Bld) 2+ [facility] Work Phone: INR in Blood by Coagulation assayon 07-15-2022 INR Coag (Bld) [Relative time] 5.9 {INR} [facility] Work Phone: Ketones Test strip Ql (U)on 07-15-2022 Ketones Ql (U) Negative Negative [facility] Work Phone: Laboratory - Chemistry and C hemistry - challengeon 07-15-2022 ALP [Catalytic activity/Vol] 297 U/L 45-117 [facility] Work Phone: [phone] ALT [Catalytic activity/Vol] 27 U/L 16-61 [facility] Work Phone: CO2 [Moles/Vol] 35.0 mmol/L 21.0-32.0 [facility] Work Phone: Globulin (S) [Mass/Vol] 3.5 g/dL 2.2-4.2 [facility] [place] Work Phone: Lipase [Catalytic activity/Vol] 277 U/L 73-393 [facility] Work Phone: [phone] Natriuretic peptide B (Bld) [Mass/Vol] 277.9 pg/mL 0-100 [facility] Work Phone: Urea nitrogen/Creatinine [Mass ratio] 11.8 mg/mg 10-20 [facility] Work Phone: Laboratory - Coagulationon 0 07-15-2022 PT Coag (PPP) [Time] 52.8 s 11.7-14.9 [facility] Work Phone: Laboratory - Hematology and Cell countson 07-15-2022 Erythrocyte distribution width (RBC) [Entitic vol] 59.7 fL 35.1-43.9 [facility] Work Phone: [phone] Erythrocyte distribution width (RBC) [Ratio] 16.9 % 11.6-14.6 [facility] Work Phone: Immature granulocytes/100 WBC (Bld) 0.400 % 0.0-0.9 [facility] Work Phone: Comment on above: IG% - Immature Granu locytes (promyelocytes, myelocytes and metamyelocytes) > 1% indicates that a LEFT SHIFT is Present. MCH (RBC) [Entitic mass] 34.0 pg 27.0-32.0 [facility] Work Phone: Nucleated RBC/100 WBC (Bld) [Ratio] 0 % 0-5 [facility] Work Phone: MCHC Auto (RBC) [Mass/Vol]on 07-15-2022 MCHC (RBC) [Mass/Vol] 34.2 g/dL 32-36 [facility] Work Phone: Mucus LM Ql (Urine sed)on Mucus Ql (Urine sed) 0 SEEN /hpf [facility] Work Phone: Nitrite Test strip Ql (U)on 07-15-2022 Nitrite Ql (U) Negative Negative [facility] Work Phone: No Panel Informationon 07-15 Estimated Creatinine Clearance Calc 20.10 ml/min [facility] Work Phone: Estimated GFR (MDRD) Amer 26 mL/min >60 [facility] Work Phone: Comment on above: GFR Calc Estimated GFR (MDRD) Non-Af Amer 21 mL/min >60 [facility] Work Phone: Comment on above: Non- GFR Calc Troponin I High Sensitivity 59 pg/mL 3.0-78.0 [facility] Work Phone: Comment on above: Please Note: New Nichole t Units and Gender Specific Reference Ranges. For more information see Policy Stat Procedure [place] High Sensitivity Troponin (TNIH) and attachments. Platelets bldon 07-15-2022 Platelets (Bld) [#/Vol] 125 10*3/uL 150-450 [facility] Work Phone: Protein Test strip Ql (U)on 07-15-2022 Protein Ql (U) 30 mg/dl Negative [facility] Work Phone: Review by pathologiston 06-20 Pathologist review [place] (Unsp spec) [Interp] Flor barber [facility] Work Phone: Pathologist review [place] (Unsp spec) [Interp] Reviewed [facility] Work Phone: Comment on above: Previous reported re sult: Flor barber Edited by: RGOOD on 07/17/22:1533Severe Microcytic anemia.Mild Thrombocytopenia.Clinical correlation necessary.Jose Frank M.D. 07/17/22 AMENDED REPORT 07/17/22 1533 PATH REV previously reported as: Flor barber Serum or plasma albumin khalif urement (mass/volume)on 07-15-2022 Albumin [Mass/Vol] 2.8 g/dL 3.2-5.0 [facility] Work Phone: Serum or plasma calcium khalif urement (mass/volume)on 07-15-2022 Calcium [Mass/Vol] 8.5 mg/dL 8.5-10.1 [facility] Work Phone: Serum or plasma creatinine m easurement (mass/volume)on 07-15-2022 Creatinine [Mass/Vol] 3.06 mg/dL 0.70-1.30 [facility] Work Phone: Comment on above: The validity of the calculated GFR & GFRAA in patients over 70 years has not been determined. Clinical correlation is essential. Serum or plasma urea nitroge n measurement (mass/volume)on 07-15-2022 Urea nitrogen [Mass/Vol] 36 mg/dL 7-18 [facility] Work Phone: Squamous epithelial cells de tection in urine sediment by light microscopyon 07-15-2022 Epithelial cells.squamous LM Ql (Urine sed) 0 SEEN /hpf 0-5 [facility] Work Phone: Thin prep Papanicolaou smear with manual screeningon 07-15-2022 Thin prep Papanicolaou smear with manual screening 32 U/L 15-37 [facility] Work Phone: Thin prep Papanicolaou smear with manual screening 4 5-15 [facility] Work Phone: Urine blood detectionon 06-20 RBC Ql (U) Negative Negative [facility] Work Phone: RBC Ql (U) 0 SEEN /hpf 0-5 [facility] Work Phone: Urine clarityon 07-15-2022 Clarity (U) Clear Clear [facility] Work Phone: Urine color determinationon 07-15-2022 Color (U) Yellow Yellow [facility] Work Phone: Urine glucose detectionon Glucose Ql (U) Normal mg/dl Normal [facility] Work Phone: Urine leukocyte esterase det ection by dipstickon 07-15-2022 Leukocyte esterase Test strip Ql (U) 25 /ul Negative [facility] Work Phone: Urine pHon 07-15-2022 pH (U) 8.0 [pH] 5.0 - 8.0 [facility] Work Phone: Urine sediment bacteria coun t by microscopy (number/high power field)on 07-15-2022 Bacteria LM.HPF (Urine sed) [#/Area] 1 /[HPF] None Seen [facility] Work Phone: Urine specific gravity measu rementon 07-15-2022 Specific gravity (U) [Rel density] 1.010 1.002-1.030 [facility] Work Phone: Urobilinogen Auto test strip Ql (U)on 07-15-2022 Urobilinogen Ql (U) Normal mg/dl Normal [facility] Work Phone: INR in Blood by Coagulation assayon 07-05-2022 INR Coag (Bld) [Relative time] 3.0 {INR} [facility] Work Phone: Laboratory - Coagulationon 0 07-05-2022 PT Coag (PPP) [Time] 30.7 s 11.7-14.9 [facility] Work Phone: INR in Blood by Coagulation assayon 06-14-2022 INR Coag (Bld) [Relative time] 1.7 {INR} [facility] Work Phone: Laboratory - Coagulationon 0 06-14-2022 PT Coag (PPP) [Time] 19.9 s 11.7-14.9 [facility] Work Phone: Absolute lymphocyte counton 06-06-2022 Lymphocytes Auto (Unsp spec) [#/Vol] 1.06 10*3/uL 0.83-4.51 [facility] Work Phone: Basophil percentageon 2021 Basophils/100 WBC (Bld) 0.9 % 0-1 [facility] Work Phone: Bilirubin [Mass/Vol] 1.40 mg/dL 0.20-1.00 [facility] Work Phone: Comment on above: For patients on eltr ombopag therapy, use of Dimension [place] TBIL is not recommended. Chloride [Moles/Vol] 99 mmol/L 98-107 [facility] Work Phone: [phone] Eosinophils/100 WBC (Bld) 5.5 % 0-5 [facility] Work Phone: Glucose [Mass/Vol] 132 mg/dL 74-106 [facility] Work Phone: Comment on above: Fasting Glucose resu lt greater than or equal to 126 mg/dL suggests DIABETES MELLITUS per A.D.A. criteria. Neutrophils (Bld) [#/Vol] 3.8 10*3/uL 2.0-7.7 [facility] Work Phone: Neutrophils/100 WBC (Bld) 64.1 % 47-70 [facility] Work Phone: Potassium [Moles/Vol] 4.2 mmol/L 3.5-5.1 [facility] Work Phone: Protein [Mass/Vol] 8.9 g/dL 6.4-8.2 [facility] Work Phone: Sodium [Moles/Vol] 139 mmol/L 136-145 [facility] Work Phone: WBC (Bld) [#/Vol] 5.9 10*3/uL 4.4-11.0 [facility] Work Phone: Blood erythrocytes count (nu mber/volume)on 06-06-2022 RBC (Bld) [#/Vol] 3.86 10*6/uL 4.6-6.2 [facility] Work Phone: Blood hemoglobin measurement (mass/volume)on 06-06-2022 Hemoglobin (Bld) [Mass/Vol] 12.4 g/dL 13.0-16.5 [facility] Work Phone: Blood lymphocytes/100 leukoc yteson 06-06-2022 Lymphocytes/100 WBC (Bld) 18.1 % 19-41 [facility] Work Phone: Blood monocytes/100 leukocyt eson 06-06-2022 Monocytes/100 WBC (Bld) 11.2 % 0-10 [facility] Work Phone: Blood platelet mean volumeon 06-06-2022 Platelet mean volume (Bld) [Entitic vol] 9.2 fL 6.2-12.0 [facility] Work Phone: Determination of erythrocyte mean corpuscular volume (MCV)on 06-06-2022 MCV (RBC) [Entitic vol] 98.4 fL 80-94 [facility] Work Phone: Hematocrit Auto (Bld) [Volum e fraction]on 06-06-2022 Hematocrit (Bld) [Volume fraction] 38.0 % 40-54 [facility] Work Phone: Iron measurement (mass/mass) Ordered By: Karthikeyan Turner on 06-06-2022 Iron (Unsp spec) [Mass/Mass] 143 ug/dL 65-175 [facility] Laboratory - Chemistry and C hemistry - challengeon 06-06-2022 ALP [Catalytic activity/Vol] 566 U/L 45-117 [facility] Work Phone: ALT [Catalytic activity/Vol] 56 U/L 16-61 [facility] Work Phone: [phone] CO2 [Moles/Vol] 33.0 mmol/L 21.0-32.0 [facility] Work Phone: Globulin (S) [Mass/Vol] 5.1 g/dL 2.2-4.2 [facility] Work Phone: Urea nitrogen/Creatinine [Mass ratio] 8.7 mg/mg 10-20 [facility] Work Phone: Laboratory - Chemistry and C hemistry - challengeOrdered By: Karthikeyan Turner on 06-06-2022 Cobalamin (Vitamin B12) [Mass/Vol] 1049 pg/mL 211-911 [facility] Laboratory - Hematology and Cell countson 06-06-2022 Erythrocyte distribution width (RBC) [Entitic vol] 50.9 fL 35.1-43.9 [facility] Work Phone: Erythrocyte distribution width (RBC) [Ratio] 14.0 % 11.6-14.6 [facility] Work Phone: Immature granulocytes/100 WBC (Bld) 0.200 % 0.0-0.9 [facility] Work Phone: Comment on above: IG% - Immature Granu locytes (promyelocytes, myelocytes and metamyelocytes) > 1% indicates that a LEFT SHIFT is Present. MCH (RBC) [Entitic mass] 32.1 pg 27.0-32.0 [facility] Work Phone: [phone] Nucleated RBC/100 WBC (Bld) [Ratio] 0 % 0-5 [facility] Work Phone: MCHC Auto (RBC) [Mass/Vol]on 06-06-2022 MCHC (RBC) [Mass/Vol] 32.6 g/dL 32-36 [facility] Work Phone: No Panel Informationon 06-06 Estimated Creatinine Clearance Calc 19.91 ml/min [facility] Work Phone: Estimated GFR (MDRD) Amer 26 mL/min >60 [facility] Work Phone: Comment on above: GFR Calc Estimated GFR (MDRD) Non-Af Amer 21 mL/min >60 [facility] Work Phone: Comment on above: Non- GFR Calc No Panel InformationOrdered By: Karthikeyan Turner on 06-06-2022 Total Iron Binding Capacity 297 ug/dL 250-450 [facility] 1049 pg/mL High 211-911 [facility] 297 ug/dL 250-450 [facility] Platelets bldon 06-06-2022 Platelets (Bld) [#/Vol] 133 10*3/uL 150-450 [facility] Work Phone: Serum or plasma albumin khalif urement (mass/volume)on 06-06-2022 Albumin [Mass/Vol] 3.8 g/dL 3.2-5.0 [facility] Work Phone: Serum or plasma albumin/glob ulin mass ratioon 06-06-2022 Albumin/Globulin [Mass ratio] 0.7 {ratio} 0.9-2.4 [facility] Work Phone: Serum or plasma calcium khalif urement (mass/volume)on 06-06-2022 Calcium [Mass/Vol] 9.8 mg/dL 8.5-10.1 [facility] Work Phone: Serum or plasma creatinine m easurement (mass/volume)on 06-06-2022 Creatinine [Mass/Vol] 3.09 mg/dL 0.70-1.30 [facility] Work Phone: Comment on above: The validity of the calculated GFR & GFRAA in patients over 70 years has not been determined. Clinical correlation is essential. Serum or plasma ferritin vivienne surement (mass/volume)Ordered By: Karthikeyan Tunrer on 06-06-2022 Ferritin [Mass/Vol] 829 ng/mL High 26-388 [facility] Serum or plasma folate measu rement (mass/volume)Ordered By: Karthikeyan Turner on 06-06-2022 Folate [Mass/Vol] 54.20 ng/mL 3.1-55.4 [facility] Serum or plasma iron saturat ion measurement (mass fraction)Ordered By: Karthikeyan Turner on 06-06-2022 Iron saturation [Mass fraction] 48.1 % 15.0-55.0 [facility] Serum or plasma urea nitroge n measurement (mass/volume)on 06-06-2022 Urea nitrogen [Mass/Vol] 27 mg/dL 7-18 [facility] Work Phone: Thin prep Papanicolaou smear with manual screeningon 06-06-2022 Thin prep Papanicolaou smear with manual screening 71 U/L 15-37 [facility] Work Phone: Thin prep Papanicolaou smear with manual screening 7 5-15 [facility] Work Phone: Thin prep Papanicolaou smear with manual screening 537 U/L 87-241 [facility] Work Phone: INR in Blood by Coagulation assayon 05-17-2022 INR Coag (Bld) [Relative time] 2.6 {INR} [facility] Work Phone: Laboratory - Coagulationon 0 05-17-2022 PT Coag (PPP) [Time] 27.7 s 11.7-14.9 [facility] Work Phone: Albumin Elph [Mass/Vol]on Albumin [Mass/Vol] 3.6 g/dL 2.9-4.4 [facility] Work Phone: Basophil percentageon 2021 Ammonia (P) [Moles/Vol] 37.0 umol/L 11-32 [facility] Work Phone: Basophil percentage Comment: . [facility] Work Phone: Comment on above: Presence of monoclon al protein is unclear at this time. Suggestrepeat in 3 to 6 months if clinically indicated.Performed at: [facility] [address] [id number] Director: Zen Joshi PhD, Phone: [phone] Interpretation of serum or p lasma protein pattern by immunofixation (narrative resulton 04-26-2022 Protein Fractions Immunofixation [place] [Interp] See comment [facility] Work Phone: Comment on above: NOT OBSERVED No Panel Informationon 04-26 Addendum Document Comment . [facility] Work Phone: Comment on above: Protein electrophore sis scan will follow via computer,mail, or mechanical engineering teacher delivery. Free Lambda Light Chains, Quant 98.8 mg/L 5.7-26.3 [facility] Work Phone: Serum mogaf-5-hcdfvygg measu rement by electrophoresison 04-26-2022 Alpha 1 globulin Elph [Mass/Vol] 0.4 g/dL 0.0-0.4 [facility] Work Phone: Alpha 1 globulin Elph [Mass/Vol] 0.6 g/dL 0.4-1.0 [facility] Work Phone: Serum globulin measurement ( mass/volume)on 04-26-2022 Globulin (S) [Mass/Vol] 3.5 g/dL 2.2-3.9 [facility] Work Phone: Serum immunoglobulin kappa l ight chains/immunoglobulin lambda light chains mass ratioon 04-26-2022 Immunoglobulin light chains.kappa/Immunoglob ulin light chains.lambda (S) [Mass ratio] 1.89 0.26-1.65 [facility] Work Phone: Serum or plasma IgA measurem ent (mass/volume)on 04-26-2022 IgA [Mass/Vol] 106 mg/dL 61-437 [facility] Work Phone: Serum or plasma IgG measurem ent (mass/volume)on 04-26-2022 IgG [Mass/Vol] 1296 mg/dL 603-1613 [facility] Work Phone: Serum or plasma IgM measurem ent (mass/volume)on 04-26-2022 IgM [Mass/Vol] 423 mg/dL 15-143 [facility] Work Phone: Serum or plasma beta globuli n measurement by electrophoresis (mass/volume)on 04-26-2022 Beta globulin Elph [Mass/Vol] 0.9 g/dL 0.7-1.3 [facility] Work Phone: Serum or plasma gamma globul in measurement by electrophoresis (mass/volume)on 04-26-2022 Gamma globulin Elph [Mass/Vol] 1.6 g/dL 0.4-1.8 [facility] Work Phone: Serum or plasma immunoelectr ophoresis interpretation (nominal result)on 04-26-2022 Interpretation IEP [Interp] Comment . [facility] Work Phone: Comment on above: No monoclonality det ected. Serum or plasma immunoglobul in kappa light chains measurement (mass/volume)on 04-26-2022 Immunoglobulin light chains.kappa [Mass/Vol] 187.0 mg/L 3.3-19.4 [facility] Work Phone: Thin prep Papanicolaou smear with manual screeningon 04-26-2022 Thin prep Papanicolaou smear with manual screening 1.1 0.7-1.7 [facility] Work Phone: Total protein bloodon 2021 Protein [Mass/Vol] 7.1 g/dL 6.0-8.5 [facility] Work Phone: INR in Blood by Coagulation assayon 04-14-2022 INR Coag (Bld) [Relative time] 2.1 {INR} [facility] Work Phone: Laboratory - Coagulationon 0 04-14-2022 PT Coag (PPP) [Time] 23.1 s 11.7-14.9 [facility] Work Phone: INR in Blood by Coagulation assayon 04-07-2022 INR Coag (Bld) [Relative time] 3.3 {INR} [facility] Work Phone: Laboratory - Coagulationon 0 04-07-2022 PT Coag (PPP) [Time] 33.3 s 11.7-14.9 [facility] Work Phone: Absolute lymphocyte counton 04-06-2022 Lymphocytes Auto (Unsp spec) [#/Vol] 1.36 10*3/uL 0.83-4.51 [facility] Work Phone: Basophil percentageon 2021 Basophils/100 WBC (Bld) 0.5 % 0-1 [facility] Work Phone: Chloride [Moles/Vol] 97 mmol/L 98-[address] [facility] Work Phone: Eosinophils/100 WBC (Bld) 5.6 % 0-5 [facility] Work Phone: Glucose [Mass/Vol] 87 mg/dL 74-106 [facility] Work Phone: Neutrophils (Bld) [#/Vol] 3.8 10*3/uL 2.0-7.7 [facility] Work Phone: Neutrophils/100 WBC (Bld) 60.1 % 47-70 [facility] Work Phone: Potassium [Moles/Vol] 4.5 mmol/L 3.5-5.1 [facility] Work Phone: Sodium [Moles/Vol] 132 mmol/L 136-145 [facility] Work Phone: WBC (Bld) [#/Vol] 6.3 10*3/uL 4.4-11.0 [facility] Work Phone: Blood erythrocytes count (nu mber/volume)on 04-06-2022 RBC (Bld) [#/Vol] 2.59 10*6/uL 4.6-6.2 [facility] Work Phone: Blood hemoglobin measurement (mass/volume)on 04-06-2022 Hemoglobin (Bld) [Mass/Vol] 8.3 g/dL 13.0-16.5 [facility] Work Phone: Blood lymphocytes/100 leukoc yteson 04-06-2022 Lymphocytes/100 WBC (Bld) 21.8 % 19-41 [facility] Work Phone: Blood monocytes/100 leukocyt eson 04-06-2022 Monocytes/100 WBC (Bld) 11.5 % 0-10 [facility] Work Phone: Blood platelet mean volumeon 04-06-2022 Platelet mean volume (Bld) [Entitic vol] 9.7 fL 6.2-12.0 [facility] Work Phone: Determination of erythrocyte mean corpuscular volume (MCV)on 04-06-2022 MCV (RBC) [Entitic vol] 94.6 fL 80-94 [facility] Work Phone: Hematocrit Auto (Bld) [Volum e fraction]on 04-06-2022 Hematocrit (Bld) [Volume fraction] 24.5 % 40-54 [facility] Work Phone: INR in Blood by Coagulation assayon 04-06-2022 INR Coag (Bld) [Relative time] 3.7 {INR} [facility] Work Phone: Laboratory - Chemistry and C hemistry - challengeon 04-06-2022 CO2 [Moles/Vol] 25.0 mmol/L 21.0-32.0 [facility] Work Phone: Urea nitrogen/Creatinine [Mass ratio] 10.1 mg/mg 10-20 [facility] Work Phone: Laboratory - Coagulationon 0 04-06-2022 PT Coag (PPP) [Time] 36.5 s [facility].7-14.9 [facility]: Laboratory - Hematology and Cell countson 04-06-2022 Erythrocyte distribution width (RBC) [Entitic vol] 49.9 fL 35.1-43.9 [facility] Work Phone: Erythrocyte distribution width (RBC) [Ratio] 14.6 % 11.6-14.6 [facility] Work Phone: Immature granulocytes/100 WBC (Bld) 0.500 % 0.0-0.9 [facility] Work Phone: Comment on above: IG% - Immature Granu locytes (promyelocytes, myelocytes and metamyelocytes) > 1% indicates that a LEFT SHIFT is Present. MCH (RBC) [Entitic mass] 32.0 pg 27.0-32.0 [facility] Work Phone: Nucleated RBC/100 WBC (Bld) [Ratio] 0 % 0-5 [facility] Work Phone: MCHC Auto (RBC) [Mass/Vol]on 04-06-2022 MCHC (RBC) [Mass/Vol] 33.9 g/dL 32-36 [facility] Work Phone: No Panel Informationon 04-06 Estimated Creatinine Clearance Calc 12.66 ml/min [facility] Work Phone: Estimated GFR (MDRD) Amer 15 mL/min >60 [facility] Work Phone: Comment on above: GFR Calc Estimated GFR (MDRD) Non-Af Amer 13 mL/min >60 [facility] Work Phone: Comment on above: Non- GFR Calc Platelets bldon 04-06-2022 Platelets (Bld) [#/Vol] 131 10*3/uL 150-450 [facility] Work Phone: Serum or plasma calcium khalif urement (mass/volume)on 04-06-2022 Calcium [Mass/Vol] 9.5 mg/dL 8.5-10.1 [facility] Work Phone: Serum or plasma creatinine m easurement (mass/volume)on 04-06-2022 Creatinine [Mass/Vol] 4.86 mg/dL 0.70-1.30 [facility] Work Phone: Comment on above: The validity of the calculated GFR & GFRAA in patients over 70 years has not been determined. Clinical correlation is essential. Serum or plasma urea nitroge n measurement (mass/volume)on 04-06-2022 Urea nitrogen [Mass/Vol] 49 mg/dL 7-18 [facility] Work Phone: Thin prep Papanicolaou smear with manual screeningon 04-06-2022 Thin prep Papanicolaou smear with manual screening 10 5-15 [facility] Work Phone: Basophil percentageon 2021 Basophil percentage 4.2 mg/dL 2.5-4.9 [facility] Work Phone: Laboratory - Chemistry and C hemistry - challengeon 04-05-2022 Magnesium [Mass/Vol] 1.8 mg/dL 1.6-2.6 [facility] Work Phone: Lower GI hemoglobin IA Ql (S tl)on 04-04-2022 Stool Occult Blood (SANDRA) Positive [facility] Work Phone: INR in Blood by Coagulation assayon 04-03-2022 INR Coag (Bld) [Relative time] 4.3 {INR} [facility] Work Phone: Comment on above: CRITICAL VALUE VERIF IED. CALLED TO [id number]/16/22 0849 Shana Herman.RESULTS READ BACK BY SAME . Laboratory - Coagulationon 0 04-03-2022 PT Coag (PPP) [Time] 41.2 s 11.7-14.9 [facility] Work Phone: INR in Blood by Coagulation assayon 03-03-2022 INR Coag (Bld) [Relative time] 3.1 {INR} [facility] Work Phone: Laboratory - Coagulationon 0 03-03-2022 PT Coag (PPP) [Time] 31.8 s 11.7-14.9 [facility] Work Phone: INR in Blood by Coagulation assayon 02-17-2022 INR Coag (Bld) [Relative time] 2.8 {INR} [facility] Work Phone: Laboratory - Coagulationon 0 02-17-2022 PT Coag (PPP) [Time] 28.7 s 11.7-14.9 [facility] Work Phone: INR in Blood by Coagulation assayon 02-10-2022 INR Coag (Bld) [Relative time] 2.6 {INR} [facility] Work Phone: Laboratory - Coagulationon 0 02-10-2022 PT Coag (PPP) [Time] 27.1 s 11.7-14.9 [facility] Work Phone: Basophil percentageon 2021 Ammonia (P) [Moles/Vol] 50.0 umol/L 11-32 [facility] Work Phone: INR in Blood by Coagulation assayon 01-16-2022 INR Coag (Bld) [Relative time] 2.0 {INR} [facility] Work Phone: Laboratory - Coagulationon 0 01-16-2022 PT Coag (PPP) [Time] 22.0 s 11.7-14.9 [facility] Work Phone: No Panel Informationon 01-16 Levetiracetam (Keppra) Level 31.9 ug/mL [facility] Work Phone: Comment on above: Performed at: [address] [id number] Director: Kenny Akbar MD, Phone: [phone] Absolute lymphocyte counton 01-12-2022 Lymphocytes Auto (Unsp spec) [#/Vol] 1.10 10*3/uL 0.83-4.51 [facility] Work Phone: Basophil percentageon 2021 Basophils/100 WBC (Bld) 0.4 % 0-1 [facility] [place] Work Phone: Bilirubin [Mass/Vol] 2.10 mg/dL 0.20-1.00 [facility] Work Phone: Comment on above: For patients on eltr ombopag therapy, use of Dimension [place] TBIL is not recommended. Chloride [Moles/Vol] 109 mmol/L 98-107 [facility] Work Phone: Eosinophils/100 WBC (Bld) 4.0 % 0-5 [facility] Work Phone: [phone] Glucose [Mass/Vol] 98 mg/dL 74-106 [facility] Work Phone: Neutrophils (Bld) [#/Vol] 3.5 10*3/uL 2.0-7.7 [facility] Work Phone: [phone] Neutrophils/100 WBC (Bld) 63.4 % 47-70 [facility] Work Phone: Potassium [Moles/Vol] 3.5 mmol/L 3.5-5.1 [facility] Work Phone: Protein [Mass/Vol] 6.4 g/dL 6.4-8.2 [facility] Work Phone: [phone] Sodium [Moles/Vol] 143 mmol/L 136-145 [facility] Work Phone: WBC (Bld) [#/Vol] 5.5 10*3/uL 4.4-11.0 [facility] Work Phone: Blood erythrocytes count (nu mber/volume)on 01-12-2022 RBC (Bld) [#/Vol] 3.76 10*6/uL 4.6-6.2 [facility] Work Phone: Blood hemoglobin measurement (mass/volume)on 01-12-2022 Hemoglobin (Bld) [Mass/Vol] 12.2 g/dL 13.0-16.5 [facility] Work Phone: [phone] Blood lymphocytes/100 leukoc yteson 01-12-2022 Lymphocytes/100 WBC (Bld) 20.1 % 19-41 [facility] Work Phone: [phone] Blood monocytes/100 leukocyt eson 01-12-2022 Monocytes/100 WBC (Bld) 11.9 % 0-10 [facility] Work Phone: Blood platelet adequacy dete ction by light microscopyon 01-12-2022 Platelets LM Ql (Bld) MOD DEC ADEQ [facility] Work Phone: Blood platelet mean volumeon 01-12-2022 Platelet mean volume (Bld) [Entitic vol] 11.8 fL 6.2-12.0 [facility] Work Phone: Determination of erythrocyte mean corpuscular volume (MCV)on 01-12-2022 MCV (RBC) [Entitic vol] 99.5 fL 80-94 [facility] Work Phone: Hematocrit Auto (Bld) [Volum e fraction]on 01-12-2022 Hematocrit (Bld) [Volume fraction] 37.4 % 40-54 [facility] Work Phone: INR in Blood by Coagulation assayon 01-12-2022 INR Coag (Bld) [Relative time] 2.9 {INR} [facility] Work Phone: Laboratory - Chemistry and C hemistry - challengeon 01-12-2022 ALP [Catalytic activity/Vol] 239 U/L 45-117 [facility] Work Phone: ALT [Catalytic activity/Vol] 29 U/L 16-61 [facility] Work Phone: CO2 [Moles/Vol] 27.0 mmol/L 21.0-32.0 [facility] Work Phone: Globulin (S) [Mass/Vol] 3.7 g/dL 2.2-4.2 [facility] [place] Work Phone: Urea nitrogen/Creatinine [Mass ratio] 14.0 mg/mg 10-20 [facility] Work Phone: Laboratory - Coagulationon 0 01-12-2022 PT Coag (PPP) [Time] 29.2 s 11.7-14.9 [facility] - Hematology and Cell countson 01-12-2022 Anisocytosis Ql (Bld) 2+ [facility] Work Phone: Erythrocyte distribution width (RBC) [Entitic vol] 74.4 fL 35.1-43.9 [facility] Work Phone: Erythrocyte distribution width (RBC) [Ratio] 20.3 % 11.6-14.6 [facility] Work Phone: Immature granulocytes/100 WBC (Bld) 0.200 % 0.0-0.9 [facility] Work Phone: Comment on above: IG% - Immature Granu locytes (promyelocytes, myelocytes and metamyelocytes) > 1% indicates that a LEFT SHIFT is Present. MCH (RBC) [Entitic mass] 32.4 pg 27.0-32.0 [facility] Work Phone: Nucleated RBC/100 WBC (Bld) [Ratio] 0 % 0-5 [facility] Work Phone: MCHC Auto (RBC) [Mass/Vol]on 01-12-2022 MCHC (RBC) [Mass/Vol] 32.6 g/dL 32-36 [facility] Work Phone: No Panel Informationon 01-12 Estimated Creatinine Clearance Calc 27.35 ml/min [facility] Work Phone: Estimated GFR (MDRD) Amer 33 mL/min >60 [facility] Work Phone: Comment on above: GFR Calc Estimated GFR (MDRD) Non-Af Amer 27 mL/min >60 [facility] Work Phone: Comment on above: Non- GFR Calc Platelets bldon 01-12-2022 Platelets (Bld) [#/Vol] 87 10*3/uL 150-450 [facility] [place] Work Phone: Serum or plasma albumin khalif urement (mass/volume)on 01-12-2022 Albumin [Mass/Vol] 2.7 g/dL 3.2-5.0 [facility] Work Phone: Serum or plasma albumin/glob ulin mass ratioon 01-12-2022 Albumin/Globulin [Mass ratio] 0.7 {ratio} 0.9-2.4 [facility] Work Phone: Serum or plasma calcium khalif urement (mass/volume)on 01-12-2022 Calcium [Mass/Vol] 8.8 mg/dL 8.5-10.1 [facility] Work Phone: Serum or plasma creatinine m easurement (mass/volume)on 01-12-2022 Creatinine [Mass/Vol] 2.50 mg/dL 0.70-1.30 [facility] Work Phone: Comment on above: The validity of the calculated GFR & GFRAA in patients over 70 years has not been determined. Clinical correlation is essential. Serum or plasma urea nitroge n measurement (mass/volume)on 01-12-2022 Urea nitrogen [Mass/Vol] 35 mg/dL 7-18 [facility] Work Phone: Thin prep Papanicolaou smear with manual screeningon 01-12-2022 Thin prep Papanicolaou smear with manual screening 46 U/L 15-37 [facility] Work Phone: Thin prep Papanicolaou smear with manual screening 7 5-15 [facility] Work Phone: Activated partial thrombopla stin time (aPTT) in platelet poor plasma by coagulation aon 01-11-2022 aPTT Coag (PPP) [Time] 218.1 s 24.1-36.2 [facility] Work Phone: Comment on above: CRITICAL VALUE VERIF IED. CALLED TO Eileen FINNEY RN ICU01/11/22 0447 Robert Odonnell.RESULTS READ BACK BY SAME. Basophil percentageon 2021 Basophil percentage 0-5 SEEN /hpf [facility] Work Phone: Ammonia (P) [Moles/Vol] 46.0 umol/L 11-32 [facility] Work Phone: Bilirubin Test strip Ql (U)o n 01-11-2022 Bilirubin Ql (U) 1 mg/dL Negative [facility] Work Phone: Comment on above: COLOR OF URINE MAY A FFECT DIPSTICK RESULTS. Ketones Test strip Ql (U)on 01-11-2022 Ketones Ql (U) Negative Negative [facility] Work Phone: Laboratory - Chemistry and C hemistry - challengeon 01-11-2022 Natriuretic peptide B (Bld) [Mass/Vol] 1573.3 pg/mL 0-100 [facility] Work Phone: Mucus LM Ql (Urine sed)on Mucus Ql (Urine sed) 0 SEEN /hpf [facility] Work Phone: Nitrite Test strip Ql (U)on 01-11-2022 Nitrite Ql (U) Negative Negative [facility] Work Phone: No Panel Informationon 01-11 Thyroid Stimulating Hormone (TSH) 1.42 uIU/mL 0.358-3.74 [facility] Work Phone: Streptococcus pneumoniae Antigen (M [facility] Work Phone: Protein Test strip Ql (U)on 01-11-2022 Protein Ql (U) 30 mg/dl Negative [facility] Work Phone: Serum procalcitonin measurem enton 01-11-2022 Procalcitonin [Mass/Vol] 0.83 ng/mL 0.00-0.09 [facility] Work Phone: Comment on above: A procalcitonin (PCT ) level above 2.0 ng/mL on the first day of ICU admission is associated with a high risk for progression to severe sepsis and/or septic shock. A PCT level below 0.5 ng/mL on the first day of ICU admission is associated with a low risk for progression to severe and/or septic shock. Note: Concentrations <0.5 ng/mL do not exclude an infection on account of localized infections (without systemic signs) which can be associated with such low concentrations, or a systemic infection in its initial stages (<6 hours). Furthermore, increased procalcitonin can occur without infection. PCT concentrations between 0.5 and 2.0 ng/mL should be interpreted taking into account the patient's history. It is recommended to retest PCT within 6-24 hours if any concentrations <2 ng/mL are obtained. Squamous epithelial cells de tection in urine sediment by light microscopyon 01-11-2022 Epithelial cells.squamous LM Ql (Urine sed) 0-5 SEEN /hpf [facility] Work Phone: Urine blood detectionon 12-21 RBC Ql (U) 25 /ul Negative [facility] Work Phone: RBC Ql (U) 0-5 SEEN /hpf [facility] Work Phone: Urine clarityon 01-11-2022 Clarity (U) Clear Clear [facility] Work Phone: Urine color determinationon 01-11-2022 Color (U) Jaelyn Yellow [facility] Work Phone: Urine glucose detectionon Glucose Ql (U) Normal mg/dl Normal [facility] Work Phone: Urine leukocyte esterase det ection by dipstickon 01-11-2022 Leukocyte esterase Test strip Ql (U) 25 /ul Negative [facility] Work Phone: Urine pHon 01-11-2022 pH (U) 5.0 [pH] [facility] Work Phone: Urine sediment bacteria coun t by microscopy (number/high power field)on 01-11-2022 Bacteria LM.HPF (Urine sed) [#/Area] RARE /hpf None Seen [facility] Work Phone: Urine specific gravity measu rementon 01-11-2022 Specific gravity (U) [Rel density] 1.025 [facility] Work Phone: Urobilinogen Auto test strip Ql (U)on 01-11-2022 Urobilinogen Ql (U) Normal mg/dl Normal [facility] Work Phone: Basophil percentageon 2021 Lactate [Moles/Vol] 1.2 mmol/L 0.4-2.0 [facility] Work Phone: Basophil percentage 2.4 mg/dL 2.5-4.9 [facility] Work Phone: Blood poikilocytosis detecti on by light microscopyon 01-10-2022 Poikilocytosis LM Ql (Bld) 1+ [facility] Work Phone: Laboratory - Chemistry and C hemistry - challengeon 01-10-2022 Lipase [Catalytic activity/Vol] 109 U/L 73-393 [facility] Work Phone: Magnesium [Mass/Vol] 1.6 mg/dL 1.6-2.6 [facility] Work Phone: Comment on above: Slight Hemolysis, Re sult may be falsely increased. Laboratory - Microbiology an d Antimicrobial susceptibilityon 01-10-2022 Bacteria identified Cx Nom (Bld) No growth in 5 days. [facility] Work Phone: No Panel Informationon 01-10 Methicillin-Resist S.aureus DNA PCR Negative Negative [facility] Work Phone: SARS-CoV-2 Antigen (Rapid) [facility] Work Phone: Troponin I High Sensitivity 41 pg/mL 3.0-78.0 [facility] Work Phone: Comment on above: Please Note: New Nichole t Units and Gender Specific Reference Ranges. For more information see Policy Stat Procedure [place] High Sensitivity Troponin (TNIH) and attachments. Ovalocyte detectionon 2021 Ovalocytes LM Ql (Bld) 1+ [facility] Work Phone: No Panel Informationon 01-09 Free Lambda Light Chains, Quant 54.5 mg/L [facility] Work Phone: Vitamin D 25-Hydroxy 52.6 ng/mL [facility] Work Phone: Comment on above: Vitamin D 25(OH) Sta tus Range Deficiency <20 ng/mL (50nmol/L) Insufficiency 20 - 30 ng/mL (50 - 75 nmol/L) Sufficiency 30 - 100 ng/mL (75 - 250 nmol/L) Toxicity >100 ng/mL (>250 nmol/L) Whole Blood Vitamin B1 Level 166.3 nmol/L [facility] Work Phone: Comment on above: Performed at: [facility] [address]esh [id number] [place], [place] [id number] Director: Zen Joshi PhD, Phone: [phone] at: [facility] [address] [id number] Director: Kenny Akbar MD, Phone: [phone] Serum immunoglobulin kappa l ight chains/immunoglobulin lambda light chains mass ratioon 01-09-2022 Immunoglobulin light chains.kappa/Immunoglob ulin light chains.lambda (S) [Mass ratio] 1.85 [facility] Work Phone: Serum or plasma immunoglobul in kappa light chains measurement (mass/volume)on 01-09-2022 Immunoglobulin light chains.kappa [Mass/Vol] 100.9 mg/L [facility] Work Phone: Basophil percentageon 2021 Potassium [Moles/Vol] 3.2 mmol/L 3.5-5.1 [facility] Work Phone: Absolute lymphocyte counton 12-20-2021 Lymphocytes Auto (Unsp spec) [#/Vol] 1.08 10*3/uL 0.83-4.51 [facility] Work Phone: Basophil percentageon 2021 Basophils/100 WBC (Bld) 0.7 % 0-1 [facility] [place] Work Phone: Bilirubin [Mass/Vol] 2.50 mg/dL 0.20-1.00 [facility] Work Phone: Comment on above: For patients on eltr ombopag therapy, use of Dimension [place] TBIL is not recommended. Chloride [Moles/Vol] 99 mmol/L 98-107 [facility] Work Phone: Eosinophils/100 WBC (Bld) 4.7 % 0-5 [facility] Work Phone: Glucose [Mass/Vol] 83 mg/dL 74-106 [facility] Work Phone: Neutrophils (Bld) [#/Vol] 2.2 10*3/uL 2.0-7.7 [facility] Work Phone: Neutrophils/100 WBC (Bld) 54.0 % 47-70 [facility] Work Phone: Potassium [Moles/Vol] 2.8 mmol/L 3.5-5.1 [facility] Work Phone: Protein [Mass/Vol] 7.1 g/dL 6.4-8.2 [facility] Work Phone: Sodium [Moles/Vol] 136 mmol/L 136-145 [facility] Work Phone: WBC (Bld) [#/Vol] 4.0 10*3/uL 4.4-11.0 [facility] Work Phone: Blood erythrocytes count (nu mber/volume)on 12-20-2021 RBC (Bld) [#/Vol] 3.95 10*6/uL 4.6-6.2 [facility] Work [facility]: Blood hemoglobin measurement (mass/volume)on 12-20-2021 Hemoglobin (Bld) [Mass/Vol] 12.4 g/dL 13.0-16.5 [facility] Work Phone: Blood lymphocytes/100 leukoc yteson 12-20-2021 Lymphocytes/100 WBC (Bld) 26.9 % 19-41 [facility] Work Phone: Blood monocytes/100 leukocyt eson 12-20-2021 Monocytes/100 WBC (Bld) 13.2 % 0-10 [facility] [place] Work Phone: Blood platelet mean volumeon 12-20-2021 Platelet mean volume (Bld) [Entitic vol] 10.9 fL 6.2-12.0 [facility] Work Phone: Determination of erythrocyte mean corpuscular volume (MCV)on 12-20-2021 MCV (RBC) [Entitic vol] 95.7 fL 80-94 [facility] Work Phone: Direct bilirubinon 2 Bilirubin.direct [Mass/Vol] 1.28 mg/dL 0.00-0.30 [facility] Work Phone: Hematocrit Auto (Bld) [Volum e fraction]on 12-20-2021 Hematocrit (Bld) [Volume fraction] 37.8 % 40-54 [facility] Work Phone: Iron measurement (mass/mass) on 12-20-2021 Iron (Unsp spec) [Mass/Mass] 95 ug/dL 65-175 [facility] Work Phone: Laboratory - Chemistry and C hemistry - challengeon 12-20-2021 ALP [Catalytic activity/Vol] 236 U/L 45-117 [facility] Work Phone: ALT [Catalytic activity/Vol] 23 U/L 16-61 [facility] Work Phone: CO2 [Moles/Vol] 33.0 mmol/L 21.0-32.0 [facility] Work Phone: Globulin (S) [Mass/Vol] 4.0 g/dL 2.2-4.2 [facility] Work Phone: Urea nitrogen/Creatinine [Mass ratio] 10.3 mg/mg 10-20 [facility] Work Phone: Laboratory - Hematology and Cell countson 12-20-2021 Erythrocyte distribution width (RBC) [Entitic vol] 62.1 fL 35.1-43.9 [facility] Work Phone: Erythrocyte distribution width (RBC) [Ratio] 18.7 % 11.6-14.6 [facility] Work Phone: Immature granulocytes/100 WBC (Bld) 0.500 % 0.0-0.9 [facility] Work Phone: Comment on above: IG% - Immature Granu locytes (promyelocytes, myelocytes and metamyelocytes) > 1% indicates that a LEFT SHIFT is Present. MCH (RBC) [Entitic mass] 31.4 pg 27.0-32.0 [facility] Work Phone: Nucleated RBC/100 WBC (Bld) [Ratio] 0 % 0-5 [facility] Work Phone: MCHC Auto (RBC) [Mass/Vol]on 12-20-2021 MCHC (RBC) [Mass/Vol] 32.8 g/dL 32-36 [facility] Work Phone: No Panel Informationon 12-20 Estimated GFR (MDRD) Amer 79 mL/min >60 [facility] Work Phone: Comment on above: GFR Calc Estimated GFR (MDRD) Non-Af Amer 66 mL/min >60 [facility] Work Phone: Comment on above: Non- GFR Calc Parathyroid Hormone (Intact) 93.7 pg/mL 18.4-80.1 [facility] Work Phone: Total Iron Binding Capacity 315 ug/dL 250-450 [facility] Work Phone: Platelets bldon 12-20-2021 Platelets (Bld) [#/Vol] 88 10*3/uL 150-450 [facility] Work Phone: Serum or plasma albumin khalif urement (mass/volume)on 12-20-2021 Albumin [Mass/Vol] 3.1 g/dL 3.2-5.0 [facility] Work Phone: Serum or plasma calcium khalif urement (mass/volume)on 12-20-2021 Calcium [Mass/Vol] 8.4 mg/dL 8.5-10.1 [facility] Work Phone: Serum or plasma creatinine m easurement (mass/volume)on 12-20-2021 Creatinine [Mass/Vol] 1.16 mg/dL 0.70-1.30 [facility] Work Phone: Comment on above: The validity of the calculated GFR & GFRAA in patients over 70 years has not been determined. Clinical correlation is essential. Serum or plasma iron saturat ion measurement (mass fraction)on 12-20-2021 Iron saturation [Mass fraction] 30.2 % 15.0-55.0 [facility] Work Phone: Serum or plasma urea nitroge n measurement (mass/volume)on 12-20-2021 Urea nitrogen [Mass/Vol] 12 mg/dL 7-18 [facility] Work Phone: Thin prep Papanicolaou smear with manual screeningon 12-20-2021 Thin prep Papanicolaou smear with manual screening 44 U/L 15-37 [facility] Work Phone: Thin prep Papanicolaou smear with manual screening 4 5-15 [facility] Work Phone: INR in Blood by Coagulation assayon 12-14-2021 INR Coag (Bld) [Relative time] 2.6 {INR} [facility] Work Phone: Laboratory - Coagulationon 0 12-14-2021 PT Coag (PPP) [Time] 27.0 s 11.7-14.9 [facility] Work Phone: Basophil percentageon 2021 Basophil percentage 4.0 mg/dL 2.5-4.9 [facility] Work Phone: Chloride [Moles/Vol] 113 mmol/L 98-107 [facility] Work Phone: Glucose [Mass/Vol] 122 mg/dL 74-106 [facility] Work Phone: Comment on above: Fasting Glucose resu lt from 100 to 125 mg/dL suggests IMPAIRED HOMEOSTASIS per A.D.A. criteria.Please note revised GLUCOSE reference range effective 2017. Potassium [Moles/Vol] 3.5 mmol/L 3.5-5.1 [facility] Work Phone: Sodium [Moles/Vol] 144 mmol/L 136-145 [facility] Work Phone: Laboratory - Chemistry and C hemistry - challengeon 11-30-2021 CO2 [Moles/Vol] 21.0 mmol/L 21.0-32.0 [facility] Work Phone: Urea nitrogen/Creatinine [Mass ratio] 16.7 mg/mg 10-20 [facility] Work Phone: No Panel Informationon 11-30 Estimated GFR (MDRD) Amer 29 mL/min >60 [facility] Work Phone: Comment on above: GFR Calc Estimated GFR (MDRD) Non-Af Amer 24 mL/min >60 [facility] Work Phone: Comment on above: Non- GFR Calc Serum or plasma albumin khalif urement (mass/volume)on 11-30-2021 Albumin [Mass/Vol] 3.3 g/dL 3.2-5.0 [facility] Work Phone: Serum or plasma calcium khalif urement (mass/volume)on 11-30-2021 Calcium [Mass/Vol] 10.3 mg/dL 8.5-10.1 [facility] Work Phone: Serum or plasma creatinine m easurement (mass/volume)on 11-30-2021 Creatinine [Mass/Vol] 2.82 mg/dL 0.70-1.30 [facility] Work Phone: Comment on above: The validity of the calculated GFR & GFRAA in patients over 70 years has not been determined. Clinical correlation is essential. Serum or plasma urea nitroge n measurement (mass/volume)on 11-30-2021 Urea nitrogen [Mass/Vol] 47 mg/dL 7-18 [facility] Work Phone: Urine creatinine measurement (mass/volume)on 11-30-2021 Creatinine (U) [Mass/Vol] 197.00 mg/dL NO RANGE EST. [facility] Work Phone: Basophil percentageon 2021 Ammonia (P) [Moles/Vol] 53.0 umol/L 11-32 [facility] Work Phone: 24 hour urine protein measur ement (mass/time)on 11-28-2021 Protein (24H U) [Mass/Time] 318.8 mg/24HR 0-151 [facility] Work Phone: 24 hour urine protein measur ement (mass/volume)on 11-28-2021 Protein (24H U) [Mass/Vol] 85.0 mg/dL 0.0-11.8 [facility] Work Phone: Creatinine clearanceon 11-28 Creatinine renal clearance Unsp time (U+S/P) [Vol/Time] 19 ml/min 100-200 [facility] Work Phone: Laboratory - Specimen inform ationon 11-28-2021 Collection duration (U) 24.0 HOURS 24.0-24.0 [facility] Work Phone: No Panel Informationon 11-28 Timed Urine Volume 375 mL [facility] Work Phone: Basophil percentageon 2021 Chloride [Moles/Vol] 105 mmol/L 98-107 [facility] Work Phone: Glucose [Mass/Vol] 131 mg/dL 74-106 [facility] Work Phone: Comment on above: Fasting Glucose resu lt greater than or equal to 126 mg/dL suggests DIABETES MELLITUS per A.D.A. criteria.Please note revised GLUCOSE reference range effective 2017. Potassium [Moles/Vol] 3.6 mmol/L 3.5-5.1 [facility] Work Phone: Sodium [Moles/Vol] 139 mmol/L 136-145 [facility] Work Phone: Laboratory - Chemistry and C hemistry - challengeon 11-21-2021 CO2 [Moles/Vol] 25.0 mmol/L 21.0-32.0 [facility] Work Phone: Urea nitrogen/Creatinine [Mass ratio] 13.4 mg/mg 10-20 [facility] Work Phone: No Panel Informationon 11-21 Estimated GFR (MDRD) Amer 32 mL/min >60 [facility] Work Phone: Comment on above: GFR Calc Estimated GFR (MDRD) Non-Af Amer 27 mL/min >60 [facility] Work Phone: Comment on above: Non- GFR Calc Serum or plasma calcium khalif urement (mass/volume)on 11-21-2021 Calcium [Mass/Vol] 10.5 mg/dL 8.5-10.1 [facility] Work Phone: Serum or plasma creatinine m easurement (mass/volume)on 11-21-2021 Creatinine [Mass/Vol] 2.53 mg/dL 0.70-1.30 [facility] Work Phone: Comment on above: The validity of the calculated GFR & GFRAA in patients over 70 years has not been determined. Clinical correlation is essential. Serum or plasma urea nitroge n measurement (mass/volume)on 11-21-2021 Urea nitrogen [Mass/Vol] 34 mg/dL 7-18 [facility] Work Phone: Thin prep Papanicolaou smear with manual screeningon 11-21-2021 Thin prep Papanicolaou smear with manual screening 9 5-15 [facility] Work Phone: INR in Blood by Coagulation assayon 11-16-2021 INR Coag (Bld) [Relative time] 3.5 {INR} [facility] Work Phone: Laboratory - Coagulationon 1 PT Coag (PPP) [Time] 34.5 s 11.7-14.9 [facility] Work Phone: Dina 08-02-2021 CNPN Telephone (CARDMN) -------- CHRISTIAN AMADOR ([id number]) 1950 M Date Time Provider Department 08/02/21 ALFONSO DAHL During your visit today, we recorded the following information about you: Laverne Weber [facility] 08/02/2021 5:14 PM Addendum Patient referred to Dr. Dahl from [facility], [place], [place], Dr. Jeff Grullon. Records Scanned into Pyreg Request sent to the appointment center to schedule patient. Laverne Weber [facility] Allergies As of Date: 08/02/2021 (No Known Allergies) Date Reviewed: 08/06/2020 Reviewed by: Rachael Garcia) GIO Forrest - Fully Assessed Reason for Visit: Received Outside Medical Records [[id number]] Prescriptions as of 08/02/2021 - calcitriol (ROCALTROL) 0.25 mcg capsule Take 0.25 mcg by mouth once daily. - carvedilol (COREG) 6.25 mg tablet Take 3.125 mg by mouth twice daily with meals. - doxycycline hyclate (VIBRAMYCIN) 100 mg capsule Take 100 mg by mouth twice daily. - cyclobenzaprine (FLEXERIL) 10 mg tablet Take 10 mg by mouth three times daily as needed. - furosemide (LASIX) 20 mg tablet Take 20 mg by mouth twice daily. - ferrous sulfate (IRON) 325 mg (65 mg iron) tablet Take 325 mg by mouth daily with breakfast. - MULTI-VITAMIN ORAL Take by mouth. - pantoprazole DR (PROTONIX) 40 mg tablet Take 40 mg by mouth once daily. - sodium bicarbonate 650 mg tablet Take 650 mg by mouth twice daily. - pantoprazole DR (PROTONIX) 40 mg tablet Take 1 tablet by mouth twice daily. - Ramipril (ALTACE) 10 mg ORAL tablet Take one tablet daily - tamsulosin (FLOMAX) 0.4 mg ORAL Cp24 Take one tablet daily - colestipol (COLESTID) 5 gram ORAL packet Take two times daily - diltiazem CD (CARDIZEM CD) 120 mg ORAL 24 hr capsule Take two times daily - Acetaminophen 500 mg ORAL Cap Takes two tablets two times daily - sotalol (SOTALOL AF) 160 mg ORAL tablet Take one tablet two times daily - warfarin (COUMADIN) 7.5 mg ORAL tablet Takes 7-7.5mg one time daily - allopurinol (ZYLOPRIM) 100 mg ORAL tablet Take one tablet daily - niacin 500 mg ORAL CR capsule Take two tablets one time daily - Aspirin 81 mg ORAL Tab Take one to two tablets daily - acetaminophen-hydrocodon e (VICODIN) 5-500 mg ORAL per tablet Take one tablet every four to tsix hours - omeprazole (PRILOSEC) 20 mg ORAL capsule Take one talet daily Problem List As Of Date 08/02/2021 Noted Resolved Lymphadenopathy [R59.1] 11/15/2010 Encounter Status:Closed by LAVERNE DAVISON on 08/02/21 Normal [facility] INR in Blood by Coagulation assayon 06-03-2021 INR Coag (Bld) [Relative time] 3.0 {INR} [facility] Laboratory - Coagulationon 0 06-03-2021 PT Coag (PPP) [Time] 30.4 s 11.7-14.9 [facility] Erythrocyte distribution wid th standard deviationon 12-31-2018 Erythrocyte distribution width (RBC) [Entitic vol] 52.8 fL High 35.1-43.9 [facility] Laboratory - Hematology and Cell countson 12-31-2018 Erythrocyte distribution width (RBC) [Ratio] 14.8 % 11.6-14.6 [facility] No Panel Informationon 12-31 14.8 % High 11.6-14.6 [facility] Total cell counton 9 Cells counted [employer] (Bld/Tiss) [#] Not Reportable [facility] No Panel Informationon 08-13 Stool Occult Blood (SANDRA) Positive [facility] Positive Abnormal [facility] No Panel Informationon 06-18 Positive Abnormal [facility] Coumadin Management: Valery Orona 10-09-2017 INR Coag RelTime (Bld) 2.5 to 3.5 Invalid Interpretation Code [facility] Work Phone: Lab Report: Prothrombin Time w/INRon 10-08-2017 INR Coag RelTime (PPP) 2.4 {INR} Invalid Interpretation Code [facility] Work Phone: Prothrombin time (PT) Coag time (PPP) 25.3 s High 11.7-14.9 [facility] Work Phone: Coumadin Management: Valery rod Calcon 09-20-2017 INR Coag RelTime (Bld) Hospital lab Invalid Interpretation Code [employer] Work Phone: [phone] INR Coag RelTime (Bld) 2.5 to 3.5 Invalid Interpretation Code [employer] Work Phone: [phone] INR Coag RelTime (PPP) 3.5 {INR} Invalid Interpretation Code [employer] Work Phone: [phone] Prothrombin time (PT) Coag time (PPP) 33.8 s Invalid Interpretation Code [employer] Work Phone: [phone] Lab Report: Prothrombin Time w/INRon 09-20-2017 Prothrombin time (PT) Coag time (PPP) 33.8 s High 11.7-14.9 [employer] Work Phone: [phone] Replaced Document: Uric Acid on 08-08-2017 Urate 9.1 mg/dL High 3.5-7.2 [employer] Work Phone: [phone] Office Visiton 07-16-2017 Dietary management education, guidance, and counseling (procedure) yes Invalid Interpretation Code [employer] Work Phone: [phone] Documentation of current medications (procedure) Done Invalid Interpretation Code [employer] Work Phone: [phone] Fall risk assessment No Invalid Interpretation Code [employer] Work Phone: [phone] Tobacco use CPHS Never smoker Invalid Interpretation Code [employer] Work Phone: [phone] Lab Report: BNP,B-Type NATRI URETIC PEPTIDEon 05-02-2017 BNP 410.2 pg/mL High 0-100 [employer] Work Phone: [phone] Lab Report: Basic Metabolic Profile (BMP)on 05-02-2017 Anion gap 8 mmol/L Invalid Interpretation Code 5-15 [employer] Work Phone: [phone] BUN/Creatinine Ratio 18.4 RATIO Invalid Interpretation Code 10-20 [employer] Work Phone: [phone] Calcium 9.0 mg/dL Invalid Interpretation Code 8.5-10.1 [employer] Work Phone: [phone] Chloride 105 mmol/L Invalid Interpretation Code 98-107 [employer] Work Phone: [phone] CO2 24.0 mmol/L Invalid Interpretation Code 21.0-32.0 [facility] Work Phone: [phone] Creatinine 1.96 mg/dL High 0.70-1.30 [facility] Work Phone: [phone] eGFR (non-black) 44 mL/min/{1.73_m2} Low >60 [facility] Work Phone: [phone] eGFR (non-black) 36 mL/min/{1.73_m2} Low >60 [facility] Work Phone: [phone] Glucose mass conc 94 mg/dL Invalid Interpretation Code 70-110 [facility] Work Phone: [phone] Potassium molar conc 4.4 mmol/L Invalid Interpretation Code 3.5-5.1 [facility] Work Phone: [phone] Sodium 137 mmol/L Invalid Interpretation Code 136-145 [facility] Work Phone: [phone] Urea nitrogen 36 mg/dL High 7-18 [facility] Work Phone: [phone] Lab Report: CBC W/Diff, Auto matedon 05-02-2017 Absolute Neut 3.4 X10 3/UL Invalid Interpretation Code 2.0-7.7 [facility] Work Phone: [phone] Basophils/100 WBC Auto (Bld) 0.5 % Invalid Interpretation Code 0-1 [facility] Work Phone: [phone] Eosinophils/100 leukocytes 3.9 % Invalid Interpretation Code 0-5 [facility] Work Phone: [phone] Erythrocyte distribution width Auto Ratio (RBC) 14.8 % High 11.6-14.6 [facility] Work Phone: [phone] Erythrocytes (RBC) 3.77 10*6/uL Low 4.6-6.2 [facility] Work Phone: [phone] Hematocrit (HCT) 36.8 % Low 40-54 [facility] Work Phone: [phone] Hemoglobin mass conc (Bld) 12.0 g/dL Low 13.0-16.5 [facility] Work Phone: [phone] Immature granulocytes/100 WBC (Bld) 0.200 % Invalid Interpretation Code 0.0-0.9 [employer] Work Phone: [phone] Lymphocytes 1.49 X10 3/UL Invalid Interpretation Code 0.83-4.51 [employer] Work Phone: [phone] Lymphocytes/100 leukocytes 25.5 % Invalid Interpretation Code 19-41 [employer] Work Phone: [phone] MCH 31.8 pg Invalid Interpretation Code 27.0-32.0 [employer] Work Phone: [phone] MCHC mass conc (RBC) 32.6 G/GL Invalid Interpretation Code 32-36 [employer] Work Phone: [phone] MCV 97.6 fL High 80-94 [employer] Work Phone: [phone] Monocytes/100 leukocytes 12.5 % High 0-10 [employer] Work Phone: [phone] Neutrophils/100 WBC Auto (Bld) 57.4 % Invalid Interpretation Code 47-70 [employer] Work Phone: [phone] Platelets 117 10*3/mm3 Low 150-450 [employer] Work Phone: [phone] PMV by Tao 10.8 fL Invalid Interpretation Code 6.2-12.0 [employer] Work Phone: [phone] RDW SD 53.3 fL High 35.1-43.9 [employer] Work Phone: [phone] WBC (Leukocytes) 5.9 10*3/uL Invalid Interpretation Code 4.4-11.0 [employer] Work Phone: [phone] Lab Report: T4 Total, Thyrox inon 05-02-2017 Thyroxine (T4) 7.8 ug/dL Invalid Interpretation Code 4.5-12.1 [employer] Work Phone: [phone] Lab Report: Thyroid Stim Hor radha (TSH)on 05-02-2017 Thyroid stimulating hormone (TSH) 2.38 u[iU]/mL Invalid Interpretation Code 0.358-3.74 [employer] Work Phone: [phone] Lab Report: PTH,INTACTon Parathyrin intact (PTH) 186 pg/mL High 14-72 [employer] Work Phone: [phone] Lab Report: Vitamin D,25 Hyd roxyon 04-11-2017 Vitamin D 25-OH 28.0 ng/mL Invalid Interpretation Code [employer] Work Phone: [phone] Lab Report: Renal Profileon 04-10-2017 Albumin 3.6 g/dL Invalid Interpretation Code 3.4-5.0 [facility] [employer] Work Phone: [phone] PHOS 2.4 mg/dL Low 2.5-4.9 [facility] Work Phone: [phone] Lab Report: Comprehensive Me tabolic Profilon 02-19-2017 Alanine aminotransferase (ALT) 42 U/L Invalid Interpretation Code 12-78 [employer] Work Phone: [phone] Albumin/Globulin Ratio 1 {ratio} Invalid Interpretation Code 0.9-2.4 [employer] Work Phone: [phone] Alkaline phosphatase (ALP) 173 U/L High 45-117 [employer] Work Phone: [phone] Aspartate aminotransferase (AST) 40 U/L High 15-37 [employer] Work Phone: [phone] Bilirubin (total) 1.10 mg/dL High 0.20-1.00 [employer] Work Phone: [phone] Globulin 4.3 g/dL High 2.3-3.5 [employer] Work Phone: [phone] Protein 8.5 g/dL High 6.4-8.2 [employer] Work Phone: [phone] Lab Report: LDHon 02-19-2017 LDH 344 U/L High 87-241 [employer] Work Phone: [phone] Lab Report: Magnesiumon Magnesium 2.3 mg/dL Invalid Interpretation Code 1.8-2.4 [employer] Work Phone: [phone] Lab Report: PSA,Total- Diagn osticon 02-19-2017 PSA, DIAGNOSTIC 4.73 ng/mL High 0.0-4.0 [employer] Work Phone: [phone] Office Visit: 6 MO - LABSon 02-19-2017 Tobacco smoking status NHIS Never Invalid Interpretation Code [employer] Work Phone: [phone] 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 See lab report for original value. [employer] Work Phone: [phone] Lab Report: Erythrocyte Sed Rateon 09-11-2016 Erythrocyte sedimentation rate 41 mm/h High 0-20 [employer] Work Phone: [phone] Lab Report: PSA,Total - Viridiana al Screenon 09-05-2016 PSA,TOT SCREEN 4.68 ng/mL High 0.00-4.00 [employer] Work Phone: [phone] Microbiology: Culture, Fungu s w/ [id number] 04-05-2016 CUFST . Invalid Interpretation Code [employer] Phone: [phone] Microbiology: Culture, Blood (WB)on 03-12-2016 Bacteria culture BCNo growth in 5 days. Invalid Interpretation Code [employer] Phone: [phone] Microbiology: Culture, Sputu mon 03-10-2016 Bacteria sputum culture . Invalid Interpretation Code [employer] Work Phone: [phone] Lab Report: Basic Metabolic Profile (BMP)on 03-07-2016 Creatinine 34.13 mL/min Invalid Interpretation Code [employer] Phone: [phone] Lab Report: CBC W/Diff, Auto matedon 03-07-2016 Pathologist (cervix/vaginal) May foll Invalid Interpretation Code [employer] Work Phone: [phone] SMEAR COMMENT SCANNED Invalid Interpretation Code [employer] Phone: [phone] Lab Report: Partial Thrombop last Timeon 03-07-2016 aPTT 62.4 s High 24.1-36.2 [employer] Work Phone: Replaced Document: Mk R Staph Aureus DNA by PCRon 03-07-2016 INR Coag RelTime (Bld) Negative Invalid Interpretation Code Negative [employer] Work Phone: Lab Report: Hemoglobin A1con 03-06-2016 Hemoglobin A1c/Hemoglobin.total mass fraction (Bld) 5.3 % Invalid Interpretation Code 4.2-6.3 [employer] Work Phone: [phone] Lab Report: Lactic Acidon Lactate 1.8 mmol/L Invalid Interpretation Code 0.4-2.0 [employer] Work Phone: [phone] Lab Report: CBC W/Diff, Auto matedon 03-05-2016 Anisocytosis presence 3+ Invalid Interpretation Code [employer] Work Phone: [phone] MICROCYTES 1+ Invalid Interpretation Code [employer] Phone: [phone] Lab Report: Prealbuminon Prealbumin 25.3 mg/dL Invalid Interpretation Code 20.0-40.0 [employer] Work Phone: [phone] Lab Report: Prothrombin Time Fingerstickon 03-02-2016 Prothrombin time (PT) Coag time (PPP) 14.7 s High 11.9-14.4 [employer] Work Phone: Office Visiton 01-18-2016 Colonoscopy (procedure) Diverticulosis Invalid Interpretation Code [employer] Phone: [phone] Lab Report: Lipid Profileon 12-09-2015 Cholesterol 229 mg/dL High 200 [employer] Work Phone: [phone] HDL Cholesterol 44 mg/dL Invalid Interpretation Code [employer] Work Phone: [phone] LDL Cholesterol 127 mg/dL Invalid Interpretation Code 0-130 [employer] Work Phone: [phone] Triglyceride 291 mg/dL High [employer] Work Phone: [phone] very low density lipoproteins 58 mg/dL High 5-40 [employer] Work Phone: [phone] Lab Report: Liver Profileon 12-09-2015 Bilirubin (direct) 0.18 mg/dL Invalid Interpretation Code 0.00-0.30 [employer] Work Phone: [phone] Office Visit: [facility] 09-13-20 15 General cardiovascular disease 10Y risk [#] [place] 27 % Invalid Interpretation Code [employer] Work Phone: [phone] Replaced Document: Mable CADET Observationson 09-13-2015 EKG QRS axis -96 deg Invalid Interpretation Code [employer] Work Phone: [phone] Interpretation Electronic ventricul ar pacemaker Pacemaker ECG, No further analysis INSUFFICIENT DATA Invalid Interpretation Code [employer] Work Phone: [phone] P [place] 1 deg Invalid Interpretation Code [employer] Work Phone: [phone] AR Interval 0 ms Invalid Interpretation Code [employer] Work Phone: [phone] Pulse (Heart Rate) 71 /min Invalid Interpretation Code [employer] Work Phone: [phone] QRS Duration 144 ms Invalid Interpretation Code [employer] Work Phone: [phone] QT Interval new path ms Invalid Interpretation Code [employer] Work Phone: [phone] T [place] 109 deg Invalid Interpretation Code [employer] Work Phone: [phone] Replaced Document: Mable CADET Observationson 05-08-2013 Pulse (Heart Rate) 532 ms Invalid Interpretation Code [employer] Work Phone: [phone] Office Visiton 10-06-2011 cardiac risk group B Invalid Interpretation Code [employer] Work Phone: [phone] cholesterol, target level 200 mg/dL Invalid Interpretation Code [employer] Work Phone: [phone] HDL cholesterol, serum, target level 40 mg/dL Invalid Interpretation Code [employer] Work Phone: [phone] LDL target level 130 mg/dL Invalid Interpretation Code [employer] Work Phone: [phone] triglyceride, target level 150 mg/dL Invalid Interpretation Code [employer] Work Phone: [phone] Stool gastrointestinal hemog lobin detection by immunologic method Stool Occult Blood (SANDRA) Positive [facility] Work Phone: Vital Signs Date Time Vital Sign Value Performing Clinician Facility 05-27-2025 13:14-0400 Body height 170.[address] Castro Ferrara DO Work Phone: [facility] 05-27-2025 13:14-0400 Body mass index (BMI) [Ratio] 25 kg/m2 Dr. Castro Ferrara DO Work Phone: [facility] 05-27-2025 13:14-0400 Body weight 72.[address] Castro Ferrara DO Work Phone: [facility] 05-27-2025 13:14-0400 Diastolic blood pressure 48 mm[Hg] Dr. Castro Ferrara DO Work Phone: [facility] 05-27-2025 13:14-0400 Heart rate 72 /min Dr. Castro Ferrara DO Work Phone: [facility] 05-27-2025 13:14-0400 Respiratory rate 14 /min Dr. Castro Ferrara DO Work Phone: [facility] 05-27-2025 13:14-0400 SaO2% (BldA) [Mass fraction] 97 % Dr. Castro Ferrara DO Work Phone: [facility] 05-27-2025 13:14-0400 Systolic blood pressure 105 mm[Hg] Dr. Castro Ferrara DO Work Phone: [facility] 04-18-2025 18:27-0400 Body mass index (BMI) [Ratio] 26.5 kg/m2 Dr. Castro Ferrara DO Work Phone: [facility] 04-18-2025 18:27-0400 Body weight 76.[address] Castro Ferrara DO Work Phone: [facility] 04-18-2025 18:01-0400 Body height 170.[address] Castro Ferrara DO Work Phone: [facility] 04-18-2025 18:01-0400 Body temperature 97.6 [degF] Dr. Castro Ferrara DO Work Phone: [facility] 04-18-2025 18:01-0400 Diastolic blood pressure 52 mm[Hg] Dr. Castro Ferrara DO Work Phone: [facility] 04-18-2025 18:01-0400 Heart rate 94 /min Dr. Castro Ferrara DO Work Phone: [facility] 04-18-2025 18:01-0400 Respiratory rate 16 /min Dr. Castro Ferrara DO Work Phone: [facility] 04-18-2025 18:01-0400 SaO2% (BldA) [Mass fraction] 100 % Dr. Castro Ferrara DO Work Phone: [facility] 04-18-2025 18:01-0400 Systolic blood pressure 106 mm[Hg] Dr. Castro Ferrara DO Work Phone: [facility] 04-15-2025 15:44-0400 Body height 170.8 cm Vaishnavi Blancootka DO Work Phone: [facility] Comment on above: pt. stated 04-15-2025 15:44-0400 Body mass index (BMI) [Ratio] 21.45 kg/m2 Vaishnavi Sobotka DO Work Phone: [facility] 04-15-2025 15:44-0400 Body weight 62.6 kg Vaishnavi Bellaotka DO Work Phone: [facility] 04-15-2025 15:44-0400 Diastolic blood pressure 40 mm[Hg] Vaishnavi Bellaotka DO Work Phone: [facility] Comment on above: provider made aware 04-15-2025 15:44-0400 Heart rate 70 /min Vaishnavi Sobotka DO Work Phone: [facility] 04-15-2025 15:44-0400 Respiratory rate 16 /min Vaishnavi Sobotka DO Work Phone: [facility] 04-15-2025 15:44-0400 SaO2% (BldA) [Mass fraction] 96 % Vaishnavi Fry DO Work Phone: [facility] 04-15-2025 15:44-0400 Systolic blood pressure 90 mm[Hg] Vaishnavi Fry DO Work Phone: [facility] Comment on above: provider made aware 03-25-2025 08:28-0400 Body mass index (BMI) [Ratio] 25.2 kg/m2 Dr. Castro Ferrara DO Work Phone: [facility] 03-25-2025 08:28-0400 Body temperature 96.8 [degF] Dr. Castro Ferrara DO Work Phone: [facility] 03-25-2025 08:28-0400 Body weight 73.[address] Castro Ferrara DO Work Phone: [facility] 03-25-2025 08:28-0400 Diastolic blood pressure 56 mm[Hg] Dr. Castro Ferrara DO Work Phone: [facility] 03-25-2025 08:28-0400 Heart rate 52 /min Dr. Castro Ferrara DO Work Phone: [facility] 03-25-2025 08:28-0400 Respiratory rate 18 /min Dr. Castro Ferrraa DO Work Phone: [facility] 03-25-2025 08:28-0400 SaO2% (BldA) [Mass fraction] 96 % Dr. Castro Ferrara DO Work Phone: [facility] 03-25-2025 08:28-0400 Systolic blood pressure 95 mm[Hg] Dr. Castro Ferrara DO Work Phone: [facility] 03-17-2025 15:11-0400 Body weight 73.[address] Castro Ferrara DO Work Phone: [facility] 03-06-2025 14:24-0400 Body temperature 97.5 [degF] Hoda Moore MD Work Phone: [facility] 03-06-2025 14:24-0400 Diastolic blood pressure 57 mm[Hg] Hoda Moore MD Work Phone: [facility] 03-06-2025 14:24-0400 Heart rate 69 /min Hoda Moore MD Work Phone: [facility] 03-06-2025 14:24-0400 Respiratory rate 18 /min Hoda Moore MD Work Phone: [facility] 03-06-2025 14:24-0400 SaO2% (BldA) [Mass fraction] 100 % Hoda Moore MD Work Phone: [facility] 03-06-2025 14:24-0400 Systolic blood pressure 116 mm[Hg] Hoda Moore MD Work Phone: [facility] 02-17-2025 07:32-0400 Body height 170.2 cm Hoda Moore MD Work Phone: [facility] 02-17-2025 07:32-0400 Body mass index (BMI) [Ratio] 27.24 kg/m2 Hoda Moore MD Work Phone: [facility] 02-17-2025 07:32-0400 Body weight 78.9 kg Hoda Moore MD Work Phone: [facility] 02-13-2025 08:00-0400 Diastolic blood pressure 55 mm[Hg] Dr. Castro Ferrara DO Work Phone: [facility] 02-13-2025 08:00-0400 Heart rate 74 /min Dr. Castro Ferrara DO Work Phone: [facility] 02-13-2025 08:00-0400 Inhaled oxygen flow rate 2 L/min Dr. Castro Ferrara DO Work Phone: [facility] 02-13-2025 08:00-0400 Respiratory rate 16 /min Dr. Castro Ferrara DO Work Phone: [facility] 02-13-2025 08:00-0400 SaO2% (BldA) [Mass fraction] 95 % Dr. Castro Ferrara DO Work Phone: [facility] 02-13-2025 08:00-0400 Systolic blood pressure 92 mm[Hg] Dr. Castro Ferrara DO Work Phone: [facility] 02-13-2025 06:12-0400 Body temperature 98.2 [degF] Dr. Castro Ferrara DO Work Phone: [facility] 02-12-2025 22:19-0400 Body mass index (BMI) [Ratio] 27.2 kg/m2 Dr. Castro Ferrara DO Work Phone: [facility] 02-12-2025 22:19-0400 Body weight 78.[address] Castro Ferrara DO Work Phone: [facility] 02-12-2025 22:16-0400 Body height 170.[address] Castro Ferrara DO Work Phone: [facility] 01-28-2025 10:39-0400 Body mass index (BMI) [Ratio] 27.2 kg/m2 Dr. Castro Ferrara DO Work Phone: [facility] 01-28-2025 10:39-0400 Body weight 78.[address] Castro Ferrara DO Work Phone: [facility] 01-28-2025 10:39-0400 Diastolic blood pressure 51 mm[Hg] Dr. Castro Ferrara DO Work Phone: [facility] 03-12-2025 10:39-0400 Heart rate 73 /min Dr. Castro Ferrara DO Work Phone: [facility] 01-28-2025 10:39-0400 Respiratory rate 16 /min Dr. Castro Ferrara DO Work Phone: [facility] 01-28-2025 10:39-0400 Systolic blood pressure 92 mm[Hg] Dr. Castro Ferrara DO Work Phone: [facility] 12-19-2024 16:00-0500 Body temperature 97.7 [degF] Carly Mane MD Work Phone: [facility] 12-19-2024 16:00-0500 Diastolic blood pressure 55 mm[Hg] Carly Mane MD Work Phone: [facility] 12-19-2024 16:00-0500 Heart rate 87 /min Carly Mane MD Work Phone: [facility] 12-19-2024 16:00-0500 Respiratory rate 18 /min Carly Mane MD Work Phone: [facility] 12-19-2024 16:00-0500 SaO2% (BldA) [Mass fraction] 96 % Carly Mane MD Work Phone: [facility] 12-19-2024 16:00-0500 Systolic blood pressure 115 mm[Hg] Carly Mane MD Work Phone: [facility] 12-18-2024 17:00-0500 Body height 170.2 cm Carly Mane MD Work Phone: [facility] 12-18-2024 17:00-0500 Body mass index (BMI) [Ratio] 27.32 kg/m2 Carly Mane MD Work Phone: [facility] 12-18-2024 17:00-0500 Body weight 79.15 kg Carly Mane MD Work Phone: [facility] 12-18-2024 10:11-0500 Diastolic blood pressure 48 mm[Hg] Dr. Castro Ferrara DO Work Phone: [facility] 12-18-2024 10:11-0500 Heart rate 80 /min Dr. Castro Ferrara DO Work Phone: [facility] 12-18-2024 10:11-0500 Respiratory rate 16 /min Dr. Castro Ferrara DO Work Phone: [facility] 12-18-2024 10:11-0500 SaO2% (BldA) [Mass fraction] 95 % Dr. Castro Ferrara DO Work Phone: [facility] 12-18-2024 10:11-0500 Systolic blood pressure 116 mm[Hg] Dr. Castro Ferrara DO Work Phone: [facility] 12-18-2024 09:09-0500 Body temperature 98.2 [degF] Dr. Castro Ferrara DO Work Phone: [facility] 12-17-2024 16:00-0500 Body mass index (BMI) [Ratio] 27.2 kg/m2 Dr. Castro Ferrara DO Work Phone: [facility] 12-17-2024 16:00-0500 Body weight 78.[address] Castro Ferrara DO Work Phone: [facility] 12-16-2024 19:52-0500 Body temperature 97.8 [degF] Dr. Castro Ferrara DO Work Phone: [facility] 12-16-2024 19:52-0500 Diastolic blood pressure 56 mm[Hg] Dr. Castro Ferrara DO Work Phone: [facility] 12-16-2024 19:52-0500 Heart rate 70 /min Dr. Castro Ferrara DO Work Phone: [facility] 12-16-2024 19:52-0500 Respiratory rate 18 /min Dr. Castro Ferrara DO Work Phone: [facility] 12-16-2024 19:52-0500 SaO2% (BldA) [Mass fraction] 100 % Dr. Castro Ferrara DO Work Phone: [facility] 12-16-2024 19:52-0500 Systolic blood pressure 112 mm[Hg] Dr. Castro Ferrara DO Work Phone: [facility] 12-16-2024 14:29-0500 Body mass index (BMI) [Ratio] 26.9 kg/m2 Dr. Castro Ferrara DO Work Phone: [facility] 12-16-2024 14:29-0500 Body weight [address] Castro Ferrara DO Work Phone: [facility] 11-25-2024 16:09-0500 Diastolic blood pressure 44 mm[Hg] Dr. Castro Ferrara DO Work Phone: [facility] 11-25-2024 16:09-0500 Systolic blood pressure 90 mm[Hg] Dr. Castro Ferrara DO Work Phone: [facility] 11-25-2024 13:49-0500 Body mass index (BMI) [Ratio] 27.2 kg/m2 Dr. Castro Ferrara DO Work Phone: [facility] 11-25-2024 13:49-0500 Body temperature 97.7 [degF] Dr. Castro Ferrara DO Work Phone: [facility] 11-25-2024 13:49-0500 Body weight 78.[address] Castro Ferrara DO Work Phone: [facility] 11-25-2024 13:49-0500 Heart rate 80 /min Dr. Castro Ferrara DO Work Phone: [facility] 11-25-2024 13:49-0500 Respiratory rate 17 /min Dr. Castro Ferrara DO Work Phone: [facility] 11-25-2024 13:49-0500 SaO2% (BldA) [Mass fraction] 100 % Dr. Castro Ferrara DO Work Phone: [facility] 10-22-2024 10:51-0500 Body height 170.2 cm Kelby Chance BUSINESS SERVICES SPECIALIST SALES-CUSTOMER ASSISTANT Work Phone: [facility] 10-22-2024 10:51-0500 Body mass index (BMI) [Ratio] 27.25 kg/m2 Kelby Chance BUSINESS SERVICES SPECIALIST SALES-CUSTOMER ASSISTANT Work Phone: [facility] 10-22-2024 10:51-0500 Body weight 78.93 kg Kelby Chance BUSINESS SERVICES SPECIALIST SALES-CUSTOMER ASSISTANT Work Phone: [facility] 10-22-2024 10:51-0500 Diastolic blood pressure 48 mm[Hg] Kelby Chance BUSINESS SERVICES SPECIALIST SALES-CUSTOMER ASSISTANT Work Phone: [facility] 10-22-2024 10:51-0500 Systolic blood pressure 122 mm[Hg] Kelby Chance BUSINESS SERVICES SPECIALIST SALES-CUSTOMER ASSISTANT Work Phone: [facility] 04-16-2024 10:19-0400 Diastolic blood pressure 38 mm[Hg] Vaishnavi Sobotka DO Work Phone: [facility] 04-16-2024 10:19-0400 Heart rate 70 /min Vaishnavi Sobotka DO Work Phone: [facility] 04-16-2024 10:19-0400 SaO2% (BldA) [Mass fraction] 100 % Vaishnavi Sobotka DO Work Phone: [facility] 04-16-2024 10:19-0400 Systolic blood pressure 78 mm[Hg] Vaishnavi Sobotka DO Work Phone: [facility] 04-02-2024 13:15-0400 Diastolic blood pressure 54 mm[Hg] Ronnie Ferrari MD Work Phone: [facility] 04-02-2024 13:15-0400 Heart rate 69 /min Ronnie Ferrari MD Work Phone: 7(736)[phone] [place] [address] 04-02-2024 13:15-0400 Respiratory rate 18 /min Ronnie Ferrari MD Work Phone: 5(320)[phone] [place] [address] 04-02-2024 13:15-0400 SaO2% (BldA) [Mass fraction] 99 % Ronnie Ferrari MD Work Phone: 7(325)330-781486 [place] [address] 04-02-2024 13:15-0400 Systolic blood pressure 98 mm[Hg] Ronnie Ferrari MD Work Phone: 8(967)295-625986 [place] [address] 04-02-2024 08:03-0400 Body height 170.2 cm Ronnie Ferrari MD Work Phone: 6(151)[phone] [place] [address] 04-02-2024 08:03-0400 Body mass index (BMI) [Ratio] 26.41 kg/m2 Ronnie Ferrari MD Work Phone: 7(679)238-844986 [place] [address] 04-02-2024 08:03-0400 Body temperature 98.1 [degF] Ronnie Ferrari MD Work Phone: 4(276)277-052486 [place] [address] 04-02-2024 08:03-0400 Body weight 76.5 kg Ronnie Ferrari MD Work Phone: 0(631)[phone] [place] [address] 03-24-2024 16:11-0400 Body height 170.2 cm Carla ROSE Work Phone: 7(715)[phone] [place] [address] 03-24-2024 16:11-0400 Body mass index (BMI) [Ratio] 26.62 kg/m2 Carla ROSE Work Phone: 8(550)600-142886 [place] [address] 03-24-2024 16:11-0400 Body weight 77.1 kg Carla De Andazal MBBS Work Phone: [facility] 03-24-2024 16:11-0400 Diastolic blood pressure 62 mm[Hg] Aguirre Nelson MBBS Work Phone: [facility] 03-24-2024 16:11-0400 Systolic blood pressure 108 mm[Hg] Aguirre Nelson MBBS Work Phone: [facility] 12-12-2023 11:12-0500 Body height 170.[address] Castro Ferrara Work Phone: [facility] 12-12-2023 11:12-0500 Body mass index (BMI) [Ratio] 27.3 kg/m2 Dr. Castro Ferrara Work Phone: [facility] 12-12-2023 11:12-0500 Body weight 79.[address] Castro Ferrara Work Phone: [facility] 12-12-2023 11:12-0500 Diastolic blood pressure 57 mm[Hg] Dr. Castro Ferrara Work Phone: [facility] 12-12-2023 11:12-0500 Heart rate 71 /min Dr. Castro Ferrara Work Phone: [facility] 12-12-2023 11:12-0500 Respiratory rate 16 /min Dr. Castro Ferrara Work Phone: [facility] 12-12-2023 11:12-0500 Systolic blood pressure 96 mm[Hg] Dr. Castro Ferrara Work Phone: [facility] 12-05-2023 09:47-0500 Body height 170.2 cm Kelby GOMEZ Work Phone: [facility] 12-05-2023 09:47-0500 Body mass index (BMI) [Ratio] 26.63 kg/m2 Kelby Chance APRN-CUSTOMER ASSISTANT Work Phone: [facility] 12-05-2023 09:47-0500 Body weight 77.11 kg Kelby Chance APRN-CUSTOMER ASSISTANT Work Phone: [facility] 12-05-2023 09:47-0500 Diastolic blood pressure 62 mm[Hg] Kelby Chance APRN-CUSTOMER ASSISTANT Work Phone: [facility] 12-05-2023 09:47-0500 Heart rate 74 /min Kelby Chance APRN-CUSTOMER ASSISTANT Work Phone: [facility] 12-05-2023 09:47-0500 SaO2% (BldA) [Mass fraction] 93 % Kelby Chance APRN-CUSTOMER ASSISTANT Work Phone: [facility] 12-05-2023 09:47-0500 Systolic blood pressure 108 mm[Hg] Kelby Chance APRN-CUSTOMER ASSISTANT Work Phone: [facility] 09-19-2023 06:08-0400 Body height 170.[address] Castro Ferrara Work Phone: [facility] 09-19-2023 06:08-0400 Body mass index (BMI) [Ratio] 26.9 kg/m2 Dr. Castro Ferrara Work Phone: [facility] 09-19-2023 06:08-0400 Body temperature 97.3 [degF] Dr. Castro Ferrara Work Phone: [facility] 09-19-2023 06:08-0400 Body weight 78.[address] Castro Ferrara Work Phone: [facility] 09-19-2023 06:08-0400 Diastolic blood pressure 54 mm[Hg] Dr. Castro Ferrara Work Phone: [facility] 09-19-2023 06:08-0400 Heart rate 92 /min Dr. Castro Ferrara Work Phone: [facility] 09-19-2023 06:08-0400 Respiratory rate 18 /min Dr. Castro Ferrara Work Phone: [facility] 09-19-2023 06:08-0400 SaO2% (BldA) [Mass fraction] 92 % Dr. Castro Ferrara Work Phone: [facility] 09-19-2023 06:08-0400 Systolic blood pressure 88 mm[Hg] Dr. Castro Ferrara Work Phone: [facility] 08-07-2023 14:36-0400 Body temperature 98.2 [degF] Dr. Castro Ferrara Work Phone: [facility] 08-07-2023 14:36-0400 Diastolic blood pressure 40 mm[Hg] Dr. Castro Ferrara Work Phone: [facility] 08-07-2023 14:36-0400 Heart rate 74 /min Dr. Castro Ferrara Work Phone: [facility] 08-07-2023 14:36-0400 Respiratory rate 16 /min Dr. Castro Ferrara Work Phone: [facility] 08-07-2023 14:36-0400 SaO2% (BldA) [Mass fraction] 99 % Dr. Castro Ferrara Work Phone: [facility] 08-07-2023 14:36-0400 Systolic blood pressure 98 mm[Hg] Dr. Castro Ferrara Work Phone: [facility] 07-13-2023 08:33-0400 Body height 170.2 cm Vaishnavi Sobashkanka DO Work Phone: [facility] 07-13-2023 08:33-0400 Body mass index (BMI) [Ratio] 27.41 kg/m2 Vaishnavi Sobotka DO Work Phone: [facility] 07-13-2023 08:33-0400 Body temperature 97.2 [degF] Vaishnavi Garciaka DO Work Phone: [facility] 07-13-2023 08:33-0400 Body weight 79.38 kg Vaishnavi Sobotka DO Work Phone: [facility] 07-13-2023 08:33-0400 Diastolic blood pressure 38 mm[Hg] Vaishnavi Sobotka DO Work Phone: [facility] 07-13-2023 08:33-0400 Systolic blood pressure 88 mm[Hg] Vaishnavi Garciaka DO Work Phone: [facility] 06-11-2023 10:09-0400 Body height 170.[address] Castro Ferrara Work Phone: [facility] 06-11-2023 10:09-0400 Body mass index (BMI) [Ratio] 27.3 kg/m2 Dr. Castro Ferrara Work Phone: [facility] 06-11-2023 10:09-0400 Body weight 79.[address] Castro Ferrara Work Phone: [facility] 06-11-2023 10:09-0400 Diastolic blood pressure 59 mm[Hg] Dr. Castro Ferrara Work Phone: [facility] 06-11-2023 10:09-0400 Heart rate 88 /min Dr. Castro Ferrara Work Phone: [facility] 06-11-2023 10:09-0400 Respiratory rate 22 /min Dr. Castro Ferrara Work Phone: [facility] 06-11-2023 10:09-0400 SaO2% (BldA) [Mass fraction] 99 % Dr. Castro Ferrara Work Phone: [facility] 06-11-2023 10:09-0400 Systolic blood pressure 98 mm[Hg] Dr. Castro Ferrara Work Phone: [facility] 06-04-2023 14:32-0400 Body mass index (BMI) [Ratio] 26.6 kg/m2 Dr. Castro Ferrara Work Phone: [facility] 06-04-2023 14:32-0400 Body temperature 97.2 [degF] Dr. Castro Ferrara Work Phone: [facility] 06-04-2023 14:32-0400 Body weight 77.[address] Castro Ferrara Work Phone: [facility] 06-04-2023 14:32-0400 Diastolic blood pressure 54 mm[Hg] Dr. Castro Ferrara Work Phone: [facility] 06-04-2023 14:32-0400 Heart rate 69 /min Dr. Castro Ferrara Work Phone: [facility] 06-04-2023 14:32-0400 Respiratory rate 16 /min Dr. Castro Ferrara Work Phone: [facility] 06-04-2023 14:32-0400 SaO2% (BldA) [Mass fraction] 99 % Dr. Castro Ferrara Work Phone: [facility] 06-04-2023 14:32-0400 Systolic blood pressure 98 mm[Hg] Dr. Castro Ferrara Work Phone: [facility] 05-18-2023 22:35-0400 Body mass index (BMI) [Ratio] 28.8 kg/m2 Dr. Castro Ferrara Work Phone: [facility] 04-09-2023 11:02-0400 Body height 170.[address] Castro Ferrara Work Phone: [facility] 04-09-2023 11:02-0400 Body mass index (BMI) [Ratio] 27.4 kg/m2 Dr. Castro Ferrara Work Phone: [facility] 04-09-2023 11:02-0400 Body temperature 97.8 [degF] Dr. Castro Ferrara Work Phone: [facility] 04-09-2023 11:02-0400 Body weight 79.[address] Castro Ferrara Work Phone: [facility] 04-09-2023 11:02-0400 Diastolic blood pressure 50 mm[Hg] Dr. Castro Ferrara Work Phone: [facility] 04-09-2023 11:02-0400 Heart rate 87 /min Dr. Castro Ferrara Work Phone: [facility] 04-09-2023 11:02-0400 Respiratory rate 16 /min Dr. Castro Ferrara Work Phone: [facility] 04-09-2023 11:02-0400 SaO2% (BldA) [Mass fraction] 99 % Dr. Castro Ferrara Work Phone: [facility] 04-09-2023 11:02-0400 Systolic blood pressure 116 mm[Hg] Dr. Castro Ferrara Work Phone: [facility] 03-29-2023 21:59-0400 Respiratory rate 22 /min Dr. Castro Ferrara Work Phone: [facility] 03-29-2023 21:09-0400 Diastolic blood pressure 47 mm[Hg] Dr. Castro Ferrara Work Phone: [facility] 03-29-2023 21:09-0400 Heart rate 70 /min Dr. Castro Ferrara Work Phone: [facility] 03-29-2023 21:09-0400 SaO2% (BldA) [Mass fraction] 100 % Dr. Castro Ferrara Work Phone: [facility] 03-29-2023 21:09-0400 Systolic blood pressure 106 mm[Hg] Dr. Castro Ferrara Work Phone: [facility] 03-29-2023 17:03-0400 Body height 170.[address] Castro Ferrara Work Phone: [facility] 03-29-2023 17:03-0400 Body mass index (BMI) [Ratio] 27.3 kg/m2 Dr. Castro Ferrara Work Phone: [facility] 03-29-2023 17:03-0400 Body temperature 98 [degF] Dr. Castro Ferrara Work Phone: [facility] 03-29-2023 17:03-0400 Body weight 79.[address] Castro Ferrara Work Phone: [facility] 03-29-2023 09:06-0400 Body height 170.[address] Castro Ferrara Work Phone: [facility] 03-29-2023 09:06-0400 Body weight 70.[address] Castro Ferrara Work Phone: [facility] 03-29-2023 07:24-0400 Body mass index (BMI) [Ratio] 24.3 kg/m2 Dr. Castro Ferrara Work Phone: [facility] 03-28-2023 09:52-0400 Diastolic blood pressure 53 mm[Hg] Darrel Garcia MD Work Phone: [facility] 03-28-2023 09:52-0400 Heart rate 90 /min Darrel Garcia MD Work Phone: [facility] 03-28-2023 09:52-0400 SaO2% (BldA) [Mass fraction] 97 % Darrel Garcia MD Work Phone: [facility] 03-28-2023 09:52-0400 Systolic blood pressure 83 mm[Hg] Darrel Garcia MD Work Phone: [facility] 03-27-2023 14:44-0400 Body temperature 96.6 [degF] Dr. Castro Ferrara Work Phone: [facility] 03-27-2023 14:44-0400 Diastolic blood pressure 61 mm[Hg] Dr. Castro Ferrara Work Phone: [facility] 03-27-2023 14:44-0400 Heart rate 70 /min Dr. Castro Ferrara Work Phone: [facility] 03-27-2023 14:44-0400 Respiratory rate 18 /min Dr. Castro Ferrara Work Phone: [facility] 03-27-2023 14:44-0400 SaO2% (BldA) [Mass fraction] 98 % Dr. Castro Ferrara Work Phone: [facility] 03-27-2023 14:44-0400 Systolic blood pressure 97 mm[Hg] Dr. Castro Ferrara Work Phone: [facility] 03-08-2023 10:27-0400 Body height 170.[address] Vinny Atkinson Work Phone: [facility] 03-08-2023 10:27-0400 Body mass index (BMI) [Ratio] 29.1 kg/m2 Dr. Vinny Atkinson Work Phone: [facility] 03-08-2023 10:27-0400 Body temperature 97.3 [degF] Dr. Vinny Atkinson Work Phone: [facility] 03-08-2023 10:27-0400 Body weight 84.[address] Vinny Atkinson Work Phone: [facility] 03-08-2023 10:27-0400 Diastolic blood pressure 48 mm[Hg] Dr. Vinny Atkinson Work Phone: [facility] 03-08-2023 10:27-0400 Heart rate 88 /min Dr. Vinny Atkinson Work Phone: [facility] 03-08-2023 10:27-0400 Respiratory rate 18 /min Dr. Vinny Atkinson Work Phone: [facility] 03-08-2023 10:27-0400 SaO2% (BldA) [Mass fraction] 99 % Dr. Vinny Atkinson Work Phone: [facility] 03-08-2023 10:27-0400 Systolic blood pressure 81 mm[Hg] Dr. Vinny Atkinson Work Phone: [facility] 02-16-2023 23:14-0400 Body mass index (BMI) [Ratio] 28.8 kg/m2 Dr. Castro Ferrara Work Phone: [facility] 01-19-2023 15:47-0500 Body temperature 98.4 [degF] Dr. Vinny Atkinson Work Phone: [facility] 01-19-2023 15:47-0500 Diastolic blood pressure 53 mm[Hg] Dr. Vinny Atkinson Work Phone: [facility] 01-19-2023 15:47-0500 Heart rate 69 /min Dr. Vinny Atkinson Work Phone: [facility] 01-19-2023 15:47-0500 Respiratory rate 16 /min Dr. Vinny Atkinson Work Phone: [facility] 01-19-2023 15:47-0500 SaO2% (BldA) [Mass fraction] 99 % Dr. Vinny Atkinson Work Phone: [facility] 01-19-2023 15:47-0500 Systolic blood pressure 127 mm[Hg] Dr. Vinny Atkinson Work Phone: [facility] 01-19-2023 15:28-0500 Body height 170.[address] Vinny Atkinson Work Phone: [facility] 01-19-2023 15:28-0500 Body weight 78.[address] Vinny Atkinson Work Phone: [facility] 01-19-2023 06:00-0500 Body mass index (BMI) [Ratio] 27.1 kg/m2 Dr. Vinny Atkinson Work Phone: [facility] 01-17-2023 22:04-0500 Body temperature 97.8 [degF] Dr. Vinny Atkinson Work Phone: [facility] 01-17-2023 22:04-0500 Diastolic blood pressure 47 mm[Hg] Dr. Vinny Atkinson Work Phone: [facility] 01-17-2023 22:04-0500 Heart rate 74 /min Dr. Vinny Atkinson Work Phone: [facility] 01-17-2023 22:04-0500 Respiratory rate 18 /min Dr. Vinny Atkinson Work Phone: [facility] 01-17-2023 22:04-0500 SaO2% (BldA) [Mass fraction] 99 % Dr. Vinny Atkinson Work Phone: [facility] 01-17-2023 22:04-0500 Systolic blood pressure 106 mm[Hg] Dr. Vinny Atkinson Work Phone: [facility] 01-17-2023 16:23-0500 Body height 170.[address] Vinny Atkinson Work Phone: [facility] 01-17-2023 16:23-0500 Body mass index (BMI) [Ratio] 26.9 kg/m2 Dr. Vinny Atkinson Work Phone: [facility] 01-17-2023 16:23-0500 Body weight 78.[address] Vinny Atkinson Work Phone: [facility] 01-16-2023 22:30-0500 Body mass index (BMI) [Ratio] 28.8 kg/m2 Dr. Vinny Atkinson Work Phone: [facility] 01-15-2023 10:51-0500 Body height 170.2 cm Kelby GOMEZ Work Phone: [facility] 01-15-2023 10:51-0500 Body mass index (BMI) [Ratio] 27.41 kg/m2 Kelby Chance APRN-CUSTOMER ASSISTANT Work Phone: [facility] 01-15-2023 10:51-0500 Body temperature 97.9 [degF] Kelby Chance APRN-CUSTOMER ASSISTANT Work Phone: [facility] 01-15-2023 10:51-0500 Body weight 79.38 kg Kelby Chance APRN-CUSTOMER ASSISTANT Work Phone: [facility] 01-15-2023 10:51-0500 Diastolic blood pressure 54 mm[Hg] Kelby Chance APRN-CUSTOMER ASSISTANT Work Phone: [facility] 01-15-2023 10:51-0500 Heart rate 69 /min Kelby Chance APRN-CUSTOMER ASSISTANT Work Phone: [facility] 01-15-2023 10:51-0500 Respiratory rate 16 /min Kelby Chance APRN-CUSTOMER ASSISTANT Work Phone: [facility] 01-15-2023 10:51-0500 SaO2% (BldA) [Mass fraction] 100 % Kelby Chance APRN-CUSTOMER ASSISTANT Work Phone: [facility] 01-15-2023 10:51-0500 Systolic blood pressure 116 mm[Hg] Kelby Chance APRN-CUSTOMER ASSISTANT Work Phone: [facility] 12-20-2022 08:35-0500 Body mass index (BMI) [Ratio] 28.8 kg/m2 Dr. Vinny Atkinson Work Phone: [facility] 11-27-2022 13:21-0500 Body height 170.[address] Vinny Atkinson Work Phone: [facility] 11-27-2022 13:21-0500 Body mass index (BMI) [Ratio] 26 kg/m2 Dr. Vinny Atkinson Work Phone: [facility] 11-27-2022 13:21-0500 Body weight 75.[address] Vinny Atkinson Work Phone: [facility] 11-27-2022 13:21-0500 Diastolic blood pressure 60 mm[Hg] Dr. Vinny Atkinson Work Phone: [facility] 11-27-2022 13:21-0500 Heart rate 72 /min Dr. Vinny Atkinson Work Phone: [facility] 11-27-2022 13:21-0500 Respiratory rate 16 /min Dr. Vinny Atkinson Work Phone: [facility] 11-27-2022 13:21-0500 Systolic blood pressure 110 mm[Hg] Dr. Vinny Atkinson Work Phone: [facility] 11-19-2022 04:08-0500 Body mass index (BMI) [Ratio] 28.8 kg/m2 Dr. Vinny Atkinson Work Phone: [facility] 10-19-2022 00:35-0500 Body mass index (BMI) [Ratio] 28.8 kg/m2 Dr. Vinny Atkinson Work Phone: [facility] 10-16-2022 12:06-0500 Body mass index (BMI) [Ratio] 25.8 kg/m2 Dr. Vinny Atkinson Work Phone: [facility] 10-16-2022 12:06-0500 Diastolic blood pressure 42 mm[Hg] Dr. Vinny Atkinson Work Phone: [facility] 10-16-2022 12:06-0500 Systolic blood pressure 100 mm[Hg] Dr. Vinny Atkinson Work Phone: [facility] 10-16-2022 11:16-0500 Body temperature 98.2 [degF] Dr. Vinny Atkinson Work Phone: [facility] 10-16-2022 11:16-0500 Body weight 74.[address] Vinny Atkinson Work Phone: [facility] 10-16-2022 11:16-0500 Heart rate 87 /min Dr. Vinny Atkinson Work Phone: [facility] 10-16-2022 11:16-0500 Respiratory rate 16 /min Dr. Vinny Atkinson Work Phone: [facility] 10-16-2022 11:16-0500 SaO2% (BldA) [Mass fraction] 97 % Dr. Vinny Atkinson Work Phone: [facility] 09-27-2022 08:33-0500 Body mass index (BMI) [Ratio] 25.3 kg/m2 Dr. Vinny Atkinson Work Phone: [facility] 09-27-2022 08:33-0500 Body weight 73.[address] Vinny Atkinson Work Phone: [facility] 09-27-2022 08:33-0500 Diastolic blood pressure 64 mm[Hg] Dr. Vinny Atkinson Work Phone: [facility] 09-27-2022 08:33-0500 Heart rate 70 /min Dr. Vinny Atkinson Work Phone: [facility] 09-27-2022 08:33-0500 SaO2% (BldA) [Mass fraction] 98 % Dr. Vinny Atkinson Work Phone: [facility] 09-27-2022 08:33-0500 Systolic blood pressure 108 mm[Hg] Dr. Vinny Atkinson Work Phone: [facility] 09-19-2022 00:10-0400 Body mass index (BMI) [Ratio] 28.8 kg/m2 Dr. Vinny Atkinson Work Phone: [facility] 08-18-2022 22:00-0400 Body mass index (BMI) [Ratio] 28.8 kg/m2 Dr. Vinny Atkinson Work Phone: [facility] 07-19-2022 23:22-0400 Body mass index (BMI) [Ratio] 28.8 kg/m2 Dr. Vinny Atkinson Work Phone: [facility] Work Phone: 07-18-2022 11:07-0400 Heart rate 72 /min Dr. Vinny Atkinson Work Phone: [facility] Work Phone: 07-18-2022 09:12-0400 Body temperature 97.9 [degF] Dr. Vinny Atkinson Work Phone: [facility] Work Phone: 07-18-2022 09:12-0400 Diastolic blood pressure 58 mm[Hg] Dr. Vinny Atkinson Work Phone: [facility] Work Phone: 07-18-2022 09:12-0400 Respiratory rate 14 /min Dr. Vinny Atkinson Work Phone: [facility] Work Phone: 07-18-2022 09:12-0400 SaO2% (BldA) [Mass fraction] 93 % Dr. Vinny Atkinson Work Phone: [facility] Work Phone: 07-18-2022 09:12-0400 Systolic blood pressure 121 mm[Hg] Dr. Vinny Atkinson Work Phone: [facility] Work Phone: 07-18-2022 03:58-0400 Body weight 72.[address] Vinny Atkinson Work Phone: [facility] Work Phone: 07-16-2022 13:00-0400 Body height 170.[address] Vinny Atkinson Work Phone: [facility] Work Phone: 07-16-2022 13:00-0400 Body mass index (BMI) [Ratio] 25.4 kg/m2 Dr. Vinny Atkinson Work Phone: [facility] Work Phone: 07-15-2022 19:00-0400 Body temperature 98.3 [degF] Dr. Vinny Atkinson Work Phone: [facility] Work Phone: 07-15-2022 19:00-0400 Diastolic blood pressure 59 mm[Hg] Dr. Vinny Atkinson Work Phone: [facility] Work Phone: 07-15-2022 19:00-0400 Heart rate 74 /min Dr. Vinny Atkinson Work Phone: [facility] Work Phone: 07-15-2022 19:00-0400 Respiratory rate 18 /min Dr. Vinny Atkinson Work Phone: [facility] Work Phone: 07-15-2022 19:00-0400 SaO2% (BldA) [Mass fraction] 99 % Dr. Vinny Atkinson Work Phone: [facility] Work Phone: 07-15-2022 19:00-0400 Systolic blood pressure 113 mm[Hg] Dr. Vinny Atkinson Work Phone: [facility] Work Phone: 07-15-2022 11:47-0400 Body height 170.[address] Vinny Atkinson Work Phone: [facility] Work Phone: 07-15-2022 11:47-0400 Body mass index (BMI) [Ratio] 27.1 kg/m2 Dr. Vinny Atkinson Work Phone: [facility] Work Phone: 07-15-2022 11:47-0400 Body weight 78.[address] Vinny Atkinson Work Phone: [facility] Work Phone: 07-14-2022 11:12-0400 Body height 170.2 cm Vaishnavi Fry Work Phone: [facility] 07-14-2022 11:12-0400 Body mass index (BMI) [Ratio] 25.87 kg/m2 Vaishnavi Sobotka DO Work Phone: [facility] 07-14-2022 11:12-0400 Body temperature 98.1 [degF] Vaishnavi Sobotka DO Work Phone: [facility] 07-14-2022 11:12-0400 Body weight 74.93 kg Vaishnavi Sobotka DO Work Phone: [facility] 07-14-2022 11:12-0400 Diastolic blood pressure 59 mm[Hg] Vaishnavi Sobotka DO Work Phone: [facility] 07-14-2022 11:12-0400 Heart rate 71 /min Vaishnavi Sobotka DO Work Phone: [facility] 07-14-2022 11:12-0400 Respiratory rate 16 /min Vaishnavi Sobotka DO Work Phone: [facility] 07-14-2022 11:12-0400 SaO2% (BldA) [Mass fraction] 99 % Vaishnavi Sobotka DO Work Phone: [facility] 07-14-2022 11:12-0400 Systolic blood pressure 103 mm[Hg] Vaishnavi Sobotka DO Work Phone: [facility] 06-18-2022 02:49-0400 Body mass index (BMI) [Ratio] 28.8 kg/m2 Dr. Vinny Atkinson Work Phone: [facility] Work Phone: 06-06-2022 14:06-0400 Body mass index (BMI) [Ratio] 24 kg/m2 Dr. Vinny Atkinson Work Phone: [facility] Work Phone: 06-06-2022 14:06-0400 Body temperature 98.2 [degF] Dr. Vinny Atkinson Work Phone: [facility] Work Phone: 06-06-2022 14:06-0400 Body weight 69.[address] Vinny Atkinson Work Phone: [facility] Work Phone: 06-06-2022 14:06-0400 Diastolic blood pressure 61 mm[Hg] Dr. Vinny Atkinson Work Phone: [facility] Work Phone: 06-06-2022 14:06-0400 Heart rate 69 /min Dr. Vinny Atkinson Work Phone: [facility] Work Phone: 06-06-2022 14:06-0400 Respiratory rate 18 /min Dr. Vinny Atkinson Work Phone: [facility] Work Phone: 06-06-2022 14:06-0400 SaO2% (BldA) [Mass fraction] 98 % Dr. Vinny Atkinson Work Phone: [facility] Work Phone: 06-06-2022 14:06-0400 Systolic blood pressure 123 mm[Hg] Dr. Vinny Atkinson Work Phone: [facility] Work Phone: 05-23-2022 10:47-0400 Body mass index (BMI) [Ratio] 23.8 kg/m2 Dr. Vinny Atkinson Work Phone: [facility] Work Phone: 05-23-2022 10:47-0400 Body temperature 98.6 [degF] Dr. Vinny Atkinson Work Phone: [facility] Work Phone: 05-23-2022 10:47-0400 Body weight 68.[address] Vinny Atkinson Work Phone: [facility] Work Phone: 05-23-2022 10:47-0400 Diastolic blood pressure 54 mm[Hg] Dr. Vinny Atkinson Work Phone: [facility] Work Phone: 05-23-2022 10:47-0400 Heart rate 78 /min Dr. Vinny Atkinson Work Phone: [facility] Work Phone: 05-23-2022 10:47-0400 Respiratory rate 17 /min Dr. Vinny Atkinson Work Phone: [facility] Work Phone: 05-23-2022 10:47-0400 SaO2% (BldA) [Mass fraction] 98 % Dr. Vinny Atkinson Work Phone: [facility] Work Phone: 05-23-2022 10:47-0400 Systolic blood pressure 122 mm[Hg] Dr. Vinny Atkinson Work Phone: [facility] Work Phone: 05-19-2022 07:22-0400 Body mass index (BMI) [Ratio] 28.8 kg/m2 Dr. Vinny Atkinson Work Phone: [facility] Work Phone: 05-08-2022 15:37-0400 Body height 170.[address] Vinny Atkinson Work Phone: [facility] Work Phone: 05-08-2022 15:37-0400 Body mass index (BMI) [Ratio] 24.5 kg/m2 Dr. Vinny Atkinson Work Phone: [facility] Work Phone: 05-08-2022 15:37-0400 Body weight 71.[address] Vinny Atkinson Work Phone: [facility] Work Phone: 05-08-2022 15:37-0400 Diastolic blood pressure 56 mm[Hg] Dr. Vinny Atkinson Work Phone: [facility] Work Phone: 05-08-2022 15:37-0400 Heart rate 80 /min Dr. Vinny Atkinson Work Phone: [facility] Work Phone: 05-08-2022 15:37-0400 Respiratory rate 16 /min Dr. Vinny Atkinson Work Phone: [facility] Work Phone: 05-08-2022 15:37-0400 Systolic blood pressure 124 mm[Hg] Dr. Vinny Atkinson Work Phone: [facility] Work Phone: 04-24-2022 14:04-0400 Body temperature 98.5 [degF] Dr. Vinny Atkinson Work Phone: [facility] Work Phone: 04-24-2022 14:04-0400 Diastolic blood pressure 52 mm[Hg] Dr. Vinny Atkinson Work Phone: [facility] Work Phone: 04-24-2022 14:04-0400 Heart rate 72 /min Dr. Vinny Atkinson Work Phone: [facility] Work Phone: 04-24-2022 14:04-0400 Respiratory rate 17 /min Dr. Vinny Atkisnon Work Phone: [facility] Work Phone: 04-24-2022 14:04-0400 SaO2% (BldA) [Mass fraction] 97 % Dr. Vinny Atkinson Work Phone: [facility] Work Phone: 04-24-2022 14:04-0400 Systolic blood pressure 116 mm[Hg] Dr. Vinny Atkinson Work Phone: [facility] Work Phone: 04-18-2022 20:58-0400 Body mass index (BMI) [Ratio] 28.8 kg/m2 Dr. Vinny Atkinson Work Phone: [facility] Work Phone: 04-08-2022 06:33-0400 Heart rate 96 /min Dr. Vinny Atkinson Work Phone: [facility] Work Phone: 04-08-2022 06:33-0400 SaO2% (BldA) [Mass fraction] 96 % Dr. Vinny Atkinson Work Phone: [facility] Work Phone: 04-08-2022 05:42-0400 Body height 170.[address] Vinny Atkinson Work Phone: [facility] Work Phone: 04-08-2022 05:42-0400 Body mass index (BMI) [Ratio] 24.1 kg/m2 Dr. Vinny Atkinson Work Phone: [facility] Work Phone: 04-08-2022 05:42-0400 Body temperature 97.9 [degF] Dr. Vinny Atkinson Work Phone: [facility] Work Phone: 04-08-2022 05:42-0400 Body weight [address] Vinny Atkinson Work Phone: [facility] Work Phone: 04-08-2022 05:42-0400 Diastolic blood pressure 47 mm[Hg] Dr. Vinny Atkinson Work Phone: [facility] Work Phone: 04-08-2022 05:42-0400 Respiratory rate 20 /min Dr. Vinny Atkinson Work Phone: [facility] Work Phone: 04-08-2022 05:42-0400 Systolic blood pressure 109 mm[Hg] Dr. Vinny Atkinson Work Phone: [facility] Work Phone: 04-06-2022 14:15-0400 Body temperature 97.6 [degF] Dr. Vinny Atkinson Work Phone: [facility] Work Phone: 04-06-2022 14:15-0400 Diastolic blood pressure 41 mm[Hg] Dr. Vinny Atkinson Work Phone: [facility] Work Phone: 04-06-2022 14:15-0400 Heart rate 70 /min Dr. Vinny Atkinson Work Phone: [facility] Work Phone: 04-06-2022 14:15-0400 Respiratory rate 16 /min Dr. Vinny Atkinson Work Phone: [facility] Work Phone: 04-06-2022 14:15-0400 SaO2% (BldA) [Mass fraction] 98 % Dr. Vinny Atkinson Work Phone: [facility] Work Phone: 04-06-2022 14:15-0400 Systolic blood pressure 103 mm[Hg] Dr. Vinny Atkinson Work Phone: [facility] Work Phone: 04-06-2022 06:00-0400 Body weight 68.[address] Vinny Atkinson Work Phone: [facility] Work Phone: 04-04-2022 14:50-0400 Body height 170.[address] Vinny Atkinson Work Phone: [facility] Work Phone: 04-04-2022 09:01-0400 Body mass index (BMI) [Ratio] 24 kg/m2 Dr. Vinny Atkinson Work Phone: [facility] Work Phone: 03-19-2022 03:35-0400 Body mass index (BMI) [Ratio] 28.8 kg/m2 Dr. Vinny Atkinson Work Phone: [facility] Work Phone: 02-17-2022 02:42-0400 Body mass index (BMI) [Ratio] 28.8 kg/m2 Dr. Vinny Atkinson Work Phone: [facility] Work Phone: 02-16-2022 13:47-0400 Body height 170.[address] Vinny Atkinson Work Phone: [facility] Work Phone: 02-16-2022 13:47-0400 Body weight 72.[address] Vinny Atkinson Work Phone: [facility] Work Phone: 02-16-2022 13:47-0400 Heart rate 71 /min Dr. Vinny Atkinson Work Phone: [facility] Work Phone: 02-16-2022 13:47-0400 SaO2% (BldA) [Mass fraction] 94 % Dr. Vinny Atkinson Work Phone: [facility] Work Phone: 02-01-2022 08:44-0400 Body mass index (BMI) [Ratio] 22.5 kg/m2 Dr. Vinny Atkinson Work Phone: [facility] Work Phone: 02-01-2022 08:44-0400 Body weight 71.[address] Vinny Atkinson Work Phone: [facility] Work Phone: 02-01-2022 08:44-0400 Diastolic blood pressure 58 mm[Hg] Dr. Vinny Atkinson Work Phone: [facility] Work Phone: 03-16-2022 08:44-0400 Heart rate 69 /min Dr. Vinny Atkinson Work Phone: [facility] Work Phone: 02-01-2022 08:44-0400 Respiratory rate 18 /min Dr. Vinny Atkinson Work Phone: [facility] Work Phone: 02-01-2022 08:44-0400 Systolic blood pressure 114 mm[Hg] Dr. Vinny Atkinson Work Phone: [facility] Work Phone: 02-01-2022 08:44-0400 Body mass index (BMI) [Ratio] 22.5 kg/m2 Dr. Vinny Atkinson Work Phone: [facility] Work Phone: 02-01-2022 08:44-0400 Body weight 71.[address] Vinny Atkinson Work Phone: [facility] Work Phone: 02-01-2022 08:44-0400 Diastolic blood pressure 58 mm[Hg] Dr. Vinny Atkinson Work Phone: [facility] Work Phone: 02-01-2022 08:44-0400 Heart rate 69 /min Dr. Vinny Atkinson Work Phone: [facility] Work Phone: 02-01-2022 08:44-0400 Respiratory rate 18 /min Dr. Vinny Atkinson Work Phone: [facility] Work Phone: 02-01-2022 08:44-0400 Systolic blood pressure 114 mm[Hg] Dr. Vinny Atkinson Work Phone: [facility] Work Phone: 01-26-2022 13:40-0500 Diastolic blood pressure 66 mm[Hg] Dr. Vinny Atkinson Work Phone: [facility] Work Phone: 01-26-2022 13:40-0500 Heart rate 70 /min Dr. Vinny Atkinson Work Phone: [facility] Work Phone: 01-26-2022 13:40-0500 Respiratory rate 16 /min Dr. Vinny Atkinson Work Phone: [facility] Work Phone: 01-26-2022 13:40-0500 SaO2% (BldA) [Mass fraction] 97 % Dr. Vinny Atkinson Work Phone: [facility] Work Phone: 01-26-2022 13:40-0500 Systolic blood pressure 131 mm[Hg] Dr. Vinny Atkinson Work Phone: [facility] Work Phone: 01-26-2022 12:40-0500 Diastolic blood pressure 66 mm[Hg] Dr. Vinny Atkinson Work Phone: [facility] Work Phone: 01-26-2022 12:40-0500 Heart rate 70 /min Dr. Vinny Atkinson Work Phone: [facility] Work Phone: 01-26-2022 12:40-0500 Respiratory rate 16 /min Dr. Vinny Atkinson Work Phone: [facility] Work Phone: 01-26-2022 12:40-0500 SaO2% (BldA) [Mass fraction] 97 % Dr. Vinny Atkinson Work Phone: [facility] Work Phone: 01-26-2022 12:40-0500 Systolic blood pressure 131 mm[Hg] Dr. Vinny Atkinson Work Phone: [facility] Work Phone: 01-17-2022 09:51-0500 Body mass index (BMI) [Ratio] 28.8 kg/m2 Dr. Vinny Atkinson Work Phone: [facility] Work Phone: 01-17-2022 08:51-0500 Body mass index (BMI) [Ratio] 28.8 kg/m2 Dr. Vinny Atkinson Work Phone: [facility] Work Phone: 01-12-2022 12:48-0500 Body temperature 97.6 [degF] Dr. Vinny Atkinson Work Phone: [facility] Work Phone: 01-12-2022 12:48-0500 Diastolic blood pressure 55 mm[Hg] Dr. Vinny Atkinson Work Phone: [facility] Work Phone: 01-12-2022 12:48-0500 Heart rate 72 /min Dr. Vinny Atkinson Work Phone: [facility] Work Phone: 01-12-2022 12:48-0500 Respiratory rate 18 /min Dr. Vinny Atkinson Work Phone: [facility] Work Phone: 01-12-2022 12:48-0500 SaO2% (BldA) [Mass fraction] 100 % Dr. Vinny Atkinson Work Phone: [facility] Work Phone: 01-12-2022 12:48-0500 Systolic blood pressure 134 mm[Hg] Dr. iVnny Atkinson Work Phone: [facility] Work Phone: 01-12-2022 05:00-0500 Body weight 73.[address] Vinny Atkinson Work Phone: [facility] Work Phone: 01-10-2022 14:05-0500 Body mass index (BMI) [Ratio] 23 kg/m2 Dr. Vinny Atkinson Work Phone: [facility] Work Phone: 01-10-2022 13:48-0500 Inhaled oxygen concentration 100 % Dr. Vinny Atkinson Work Phone: [facility] Work Phone: 01-09-2022 19:31-0500 Diastolic blood pressure 66 mm[Hg] Dr. Vinny Atkinson Work Phone: [facility] Work Phone: 01-09-2022 19:31-0500 Systolic blood pressure 150 mm[Hg] Dr. Vinny Atkinson Work Phone: [facility] Work Phone: 01-09-2022 07:57-0500 Heart rate 75 /min Dr. Vinny Atkinson Work Phone: [facility] Work Phone: 01-09-2022 07:57-0500 SaO2% (BldA) [Mass fraction] 98 % Dr. Vinny Atkinson Work Phone: [facility] Work Phone: 12-20-2021 00:26-0500 Body mass index (BMI) [Ratio] 28.8 kg/m2 Dr. Vinny Atkinson Work Phone: [facility] Work Phone: 12-15-2021 11:30-0500 Body mass index (BMI) [Ratio] 24.3 kg/m2 Dr. Vinny Atkinson Work Phone: [facility] Work Phone: 12-15-2021 11:30-0500 Body temperature 96.7 [degF] Dr. Vinny Atkinson Work Phone: [facility] Work Phone: 12-15-2021 11:30-0500 Body weight 70.[address] Vinny Atkinson Work Phone: [facility] Work Phone: 12-15-2021 11:30-0500 Diastolic blood pressure 71 mm[Hg] Dr. Vinny Atkinson Work Phone: [facility] Work Phone: 12-15-2021 11:30-0500 Heart rate 70 /min Dr. Vinny Atkinson Work Phone: [facility] Work Phone: 12-15-2021 11:30-0500 Respiratory rate 20 /min Dr. Vinny Atkinson Work Phone: [facility] Work Phone: 12-15-2021 11:30-0500 SaO2% (BldA) [Mass fraction] 97 % Dr. Vinny Atkinson Work Phone: [facility] Work Phone: 12-15-2021 11:30-0500 Systolic blood pressure 136 mm[Hg] Dr. Vinny Atkinson Work Phone: [facility] Work Phone: 11-20-2021 03:36-0500 Body mass index (BMI) [Ratio] 28.8 kg/m2 Dr. Vinny Atkinson Work Phone: [facility] Work Phone: 10-31-2021 12:56-0500 Body mass index (BMI) [Ratio] 25.7 kg/m2 Dr. Vinny Atkinson Work Phone: [facility] Work Phone: 10-31-2021 12:56-0500 Body weight 74.[address] Vinny Atkinson Work Phone: [facility] Work Phone: 10-31-2021 12:56-0500 Diastolic blood pressure 58 mm[Hg] Dr. Vinny Atkinson Work Phone: [facility] Work Phone: 10-31-2021 12:56-0500 Heart rate 72 /min Dr. Vinny Atkinson Work Phone: [facility] Work Phone: 10-31-2021 12:56-0500 Respiratory rate 16 /min Dr. Vinny Atkinson Work Phone: [facility] Work Phone: 10-31-2021 12:56-0500 Systolic blood pressure 144 mm[Hg] Dr. Vinny Atkinson Work Phone: [facility] Work Phone: 08-18-2021 21:58-0400 Body mass index (BMI) [Ratio] 28.8 kg/m2 Dr. Vinny Atkinson Work Phone: [facility] Work Phone: 05-19-2021 14:32-0400 Body mass index (BMI) [Ratio] 29.2 kg/m2 Dr. Vinny Atkinson Work Phone: [facility] Work Phone: 12-14-2020 14:51-0500 Body mass index (BMI) [Ratio] 29 kg/m2 Dr. Vinny Atkinsno Work Phone: [facility] 12-14-2020 14:51-0500 Body temperature 97.6 [degF] Dr. Vinny Atkinson Work Phone: [facility] 12-14-2020 14:51-0500 Body weight 84.[address] Vinny Atkinson Work Phone: [facility] Work Phone: 12-14-2020 14:51-0500 Diastolic blood pressure 64 mm[Hg] Dr. Vinny Atkinson Work Phone: [facility] 12-14-2020 14:51-0500 Heart rate 70 /min Dr. Vinny Atkinson Work Phone: [facility] 12-14-2020 14:51-0500 Respiratory rate 16 /min Dr. Vinny Atkinson Work Phone: [facility] 12-14-2020 14:51-0500 SaO2% (BldA) [Mass fraction] 100 % Dr. Vinny Atkinson Work Phone: [facility] 12-14-2020 14:51-0500 Systolic blood pressure 154 mm[Hg] Dr. Vinny Atkinson Work Phone: [facility] 07-16-2017 16:22-0400 BMI (Body Mass Index) 28.35 [...] 11:46-0400 BSA (Body Surface Area) 2.04 m2 [facility] Work Phone: 06-05-2016 15:23-0400 Body Temperature 98.1 [degF] [facility] Work Phone: 04-10-2016 16:42-0400 Height 175.26 cm Meron Cohen RN [facility] Work Phone: 02-26-2015 16:22-0400 Pulse Oximetry 98 % Meron Cohen RN [facility] Work Phone: Encounters Encounter Date Encounter Type Care Provider Facility Start: 06-11-2025 ambulatory Jane KEMP Facility:[facility] Start: 06-10-2025 ambulatory [facility]: [facility] Start: 06-08-2025 ambulatory [facility]: [facility] Start: 06-01-2025 ambulatory [facility] Facility:[facility] Start: 05-29-2025 ambulatory [facility]: [facility] Start: 05-27-2025 End: 05-27-[address] Castro Ferrara DO Work Phone: -[facility] Start: 05-27-2025 End: 05-27-2025 Dr. Karthikeyan Turner MD -[facility] Work Phone: Start: 05-27-2025 ambulatory [facility] Facility: [facility] Start: 05-27-2025 Dr. Castro moy DO -[facility] Work Phone: Start: 05-25-2025 ambulatory [facility]: [facility] Start: 05-25-2025 Dr. Castro moy DO -[facility] Work Phone: Start: 05-18-2025 ambulatory [facility]: [facility] Start: 05-18-2025 Dr. Castro moy DO -[facility] Work Phone: Start: 05-13-2025 ambulatory [facility] Facility: [facility] Start: 05-13-2025 Dr. Castro moy DO -[facility] Work Phone: Start: 05-11-2025 ambulatory [facility] Facility: [facility] Start: 05-11-2025 Dr. Castro moy DO -[facility] Work Phone: Start: 05-07-2025 ambulatory [facility]: [facility] Start: 05-07-2025 Dr. Castro moy DO -[facility] Work Phone: Start: 05-04-2025 ambulatory Castro Ferrara Facility: [facility] Start: 05-04-2025 Dr. Castro moy DO -[facility] Work Phone: Start: 04-29-2025 End: 04-29-[address] Castro Ferrara DO Work Phone: [facility] Work Phone: Start: 04-29-2025 End: 04-29-2025 Dr. Castro Ferrara DO -[facility] Work Phone: Start: 04-28-2025 End: 04-29-2025 ambulatory [facility] Facility:[facility] Start: 04-28-2025 Dr. Castro moy DO -[facility] Work Phone: Start: 04-27-2025 ambulatory Castro Ferrara Facility: [facility] Start: 04-27-2025 Dr. Castro moy DO -[facility] Work Phone: Start: 04-20-2025 ambulatory Castro Ferrara Facility: [facility] Start: 04-20-2025 Dr. Castro moy DO -[facility] Work Phone: Start: 04-18-2025 End: 04-18-2025 Dr. Castro Ferrara DO Work Phone: -Emergency Department Work Phone: Start: 04-18-2025 End: 04-18-2025 Emergency department patient visit Dr. Castro Ferrara DO Work Phone: [facility] Work Phone: Start: 04-15-2025 End: 04-15-2025 Office outpatient visit 25 minutes Vaishnavi Fry DO Work Phone: [facility] Comment on above: Other cirrhosis of l iver (Primary Dx); Hepatic encephalopathy; Metabolic dysfunction-associated steatohepatitis (MASH) Start: 04-15-2025 ambulatory SELF SELF Facility:[facility] Start: 04-13-2025 ambulatory Castro Josias Facility: [facility] Start: 04-13-2025 Dr. Castro moy [facility] Work Phone: Start: 04-08-2025 ambulatory Vaishnavi Bob Facility: [facility] Start: 04-08-2025 End: 04-08-[address] Castro Ferrara DO Work Phone: [facility] Work Phone: Start: 04-08-2025 End: 04-08-2025 Sue Roberts DRYWALL SANDER-C -Pulmonary Services/Neurology Work Phone: Start: 04-08-2025 End: 04-08-2025 ambulatory Sue Roberts NP Facility:[facility] Start: 04-06-2025 ambulatory Castro Ferrara Facility: [facility] Start: 04-06-2025 Dr. Castro moy -[facility] Work Phone: Start: 03-30-2025 ambulatory Castro Murilloman Facility: [facility] Start: 03-30-2025 Dr. Castro moy [facility] Work Phone: Start: 03-25-2025 End: 03-25-2025 Sue Roberts DRYWALL SANDER-C -[facility] Work Phone: Start: 03-25-2025 End: 03-25-2025 ambulatory Sue Roberts NP Facility:[facility] Start: 03-23-2025 End: 03-23-[address] Castro Ferrara DO Work Phone: [facility] Work Phone: Start: 03-23-2025 End: 03-23-2025 Vaishnavi Bob DRYWALL SANDER-C -[facility] Work Phone: Start: 03-23-2025 ambulatory Castro Ferrara Facility: [facility] Start: 03-23-2025 Dr. Castro moy DO -[facility] Work Phone: Start: 03-23-2025 End: 03-23-2025 ambulatory Vaishnavi Bob Facility:[facility] Start: 03-17-2025 End: 03-17-2025 Vaishnavi Bob DRYWALL SANDER-C -[facility] Work Phone: Start: 03-17-2025 End: 03-17-2025 ambulatory Vaishnavi Bob Facility:[facility] Start: 03-16-2025 ambulatory [facility]: [facility] Start: 03-16-2025 Dr. Castro moy -[facility] Work Phone: Start: 03-12-2025 ambulatory [facility] Facility: [facility] Start: 03-12-2025 Dr. Castro moy -[facility] Work Phone: Start: 03-10-2025 ambulatory [facility] Facility: [facility] Start: 03-10-2025 Dr. Castro moy -[facility] Work Phone: Start: 03-09-2025 [facility] Start: 03-09-2025 Dr. Castro moy [facility] Work Phone: Start: 03-06-2025 ambulatory [facility]: [facility] Start: 03-06-2025 Dr. Castro moy [facility] Work Phone: Start: 02-13-2025 End: 03-06-2025 Evaluation and management of inpatient Fernanda Parra MD Work Phone: [id number] Start: 02-12-2025 End: 02-13-2025 Dr. Castro Ferrara DO Work Phone: -Emergency Department Work Phone: Start: 02-12-2025 End: 02-13-2025 Emergency department patient visit Dr. Castro Ferrara DO Work Phone: [facility] Work Phone: Start: 02-12-2025 End: 02-12-2025 Dr. Castro Ferrara DO -Laboratory Work Phone: Start: 02-11-2025 End: 02-12-2025 ambulatory [facility] Facility:[facility] Start: 02-11-2025 Dr. Castro moy DO -[facility] Work Phone: Start: 02-09-2025 ambulatory [facility] Facility: [facility] Start: 02-09-2025 Dr. Castro moy DO -[facility] Work Phone: Start: 02-02-2025 ambulatory [facility] Facility: [facility] Start: 02-02-2025 Dr. Castro moy DO -[facility] Work Phone: Start: 01-28-2025 End: 01-28-2025 ambulatory [facility] Facility:[facility] Start: 01-28-2025 End: 01-28-2025 Dr. Niels Flores MD -[facility] Work Phone: Start: 01-26-2025 ambulatory [facility] Facility: [facility] Start: 01-26-2025 Dr. Castro moy DO -[facility] Work Phone: Start: 01-22-2025 Dr. Sharron Calderon DO -Laboratory Work Phone: Start: 01-22-2025 ambulatory Sharron Calderon Facility: [facility] Start: 01-19-2025 ambulatory [facility]: [facility] Start: 01-19-2025 Dr. Castro moy DO -[facility] Work Phone: Start: 01-05-2025 ambulatory [facility]: [facility] Start: 01-05-2025 Dr. Castro moy DO -[facility] Work Phone: Start: 01-02-2025 ambulatory [facility] Facility: [facility] Start: 01-02-2025 Dr. Castro moy DO -[facility] Work Phone: Start: 12-31-2024 End: 12-31-2024 Dr. Castro Ferrara DO Work Phone[facility] Work Phone: Start: 12-31-2024 End: 12-31-2024 ambulatory [facility] Facility:[facility] Start: 12-29-2024 ambulatory [facility]: [facility] Start: 12-29-2024 Dr. Castro moy DO -[facility] Work Phone: Start: 12-24-2024 ambulatory [facility] Facility: [facility] Start: 12-24-2024 Dr. Castro moy DO -[facility] Work Phone: Start: 12-22-2024 ambulatory [facility]: [facility] Start: 12-22-2024 Dr. Castro moy DO -[facility] Work Phone: Start: 12-19-2024 ambulatory [facility]: [facility] Start: 12-19-2024 Dr. Castro moy DO -[facility] Work Phone: Start: 12-18-2024 End: 12-19-2024 Evaluation and management of inpatient Carly Mane MD Work Phone: [id number] Comment on above: Acute candidal endoc arditis Start: 12-17-2024 End: 12-18-2024 Dr. Marquis Gomes DO -Emergency Department Work Phone: Start: 12-17-2024 End: 12-18-2024 Emergency department patient visit Marquis Gomes Facility:[facility] Start: 12-16-2024 ambulatory Diego Reaves [facility] Start: 12-16-2024 Dr. Alonso connor MD -[facility] Start: 12-16-2024 End: 12-16-2024 Dr. Diego Reaves DO -Emergency Departmen t Work Phone: Start: 12-16-2024 End: 12-16-2024 Emergency department patient visit Diego Reaves Facility:[facility] Start: 12-15-2024 ambulatory [facility]: [facility] Start: 12-15-2024 Dr. Castro moy DO -[facility] Work Phone: Start: 12-08-2024 ambulatory [facility] Facility: [facility] Start: 12-08-2024 Dr. Castro moy DO -[facility] Work Phone: Start: 12-03-2024 ambulatory [facility]: [facility] Start: 12-03-2024 Dr. Castro moy DO -[facility] Work Phone: Start: 12-01-2024 ambulatory [facility]: [facility] Start: 12-01-2024 Dr. Castro moy DO -[facility] Work Phone: Start: 11-25-2024 End: 11-25-2024 Dr. Timmy Miranda MD -[facility] Work Phone: Start: 11-25-2024 End: 11-25-[address] [facility] Start: 11-24-2024 End: 11-25-20[facility] [facility] Start: 11-24-2024 Dr. Castro moy DO -[facility] Work Phone: Start: 11-17-2024 ambulatory [facility] Facility: [facility] Start: 11-17-2024 Dr. Castro moy DO -[facility] Work Phone: Start: 11-03-2024 ambulatory [facility] Facility: [facility] Start: 11-03-2024 Dr. Castro moy DO -[facility] Work Phone: Start: 10-27-2024 ambulatory [facility] Facility: [facility] Start: 10-27-2024 Dr. Castro moy DO -[facility] Work Phone: Start: 10-22-2024 End: 10-22-2024 Office outpatient visit 25 minutes Kelby Chance APRN-CUSTOMER ASSISTANT Work Phone: [facility] [place] Comment on above: Other cirrhosis of l iver (Primary Dx) Start: 10-22-2024 ambulatory SELF SELF Facility:[facility] Start: 10-20-2024 ambulatory [facility] Facility: [facility] Start: 10-20-2024 Dr. Castro moy -[facility] Work Phone: Start: 10-13-2024 ambulatory Castro Josias Facility: [facility] Start: 10-08-2024 End: 10-08-2024 ambulatory Castro Josias Facility:[facility] Start: 10-06-2024 ambulatory Castro Josias Facility: [facility] Start: 09-29-2024 ambulatory Castro Josias Facility: [facility] Start: 09-22-2024 ambulatory Castro Josias Facility: [facility] Start: 09-15-2024 ambulatory Castro Josias Facility: [facility] Start: 09-08-2024 ambulatory Castro Josias Facility: [facility] Start: 09-01-2024 ambulatory Castro Josias Facility: [facility] Start: 08-25-2024 ambulatory Castro Josias Facility: [facility] Start: 08-18-2024 ambulatory Castro Josias Facility: [facility] Start: 08-11-2024 ambulatory Castro Josias Facility: [facility] Start: 08-07-2024 ambulatory Castro Josias Facility: [facility] Start: 08-04-2024 ambulatory Castro Josias Facility: [facility] Start: 07-31-2024 End: 07-31-2024 ambulatory Castro Josias Facility:[facility] Start: 07-28-2024 ambulatory Castro Josias Facility: [facility] Start: 07-22-2024 ambulatory Castro Josias Facility: [facility] Start: 07-21-2024 ambulatory Castro Josias Facility: [facility] Start: 07-14-2024 ambulatory Castro Josias Facility: [facility] Start: 07-07-2024 ambulatory Castro Josias Facility: [facility] Start: 07-02-2024 End: 07-02-2024 ambulatory [facility] Facility:[facility] Start: 06-30-2024 ambulatory Castro Josias Facility: [facility] Start: 06-23-2024 ambulatory Castro Josias Facility: [facility] Start: 06-19-2024 End: 06-19-2024 ambulatory Castro Josias Facility:[facility] Start: 06-16-2024 ambulatory Castro Josias Facility: [facility] Start: 04-16-2024 End: 04-16-2024 Office outpatient visit 25 minutes Vaishnavi Fry DO Work Phone: [facility] Comment on above: Other cirrhosis of l iver (Primary Dx) Start: 04-02-2024 End: 04-02-2024 Subsequent hospital visit by physician Ronnie Ferrari MD Work Phone: Cardiology [facility] Comment on above: SSS (sick sinus synd theodora) Start: 03-24-2024 End: 03-24-2024 Subsequent hospital visit by physician Carla ROSE Work Phone: [facility] [place] Start: 12-31-2023 Non-patient / Non-visit Dr. Shailesh Ferrara Work Phone: [facility] Work Phone: Start: 12-26-2023 End: 12-26-[address] Castro Ferrara Work Phone: [facility] Work Phone: Start: 12-26-2023 End: 12-26-[address] Castro Ferrara Work Phone: [facility]-Ultrasound, [facility] Work Phone: Start: 12-24-2023 Non-patient / Non-visit Dr. Shailesh Ferrara Work Phone: [facility] Work Phone: Start: 12-17-2023 Non-patient / Non-visit Dr. Shailesh Ferrara Work Phone: [facility] Work Phone: Start: 12-12-2023 End: 12-12-[address] Castro Ferrara Work Phone: [facility] Work Phone: Start: 12-10-2023 Non-patient / Non-visit Dr. Shailesh Ferrara Work Phone: [facility] Work Phone: Start: 12-05-2023 End: 12-05-2023 Office outpatient visit 25 minutes Kelby Chance BUSINESS SERVICES SPECIALIST SALES-CUSTOMER ASSISTANT Work Phone: [facility] [place] Comment on above: Other cirrhosis of l iver (Primary Dx); Cirrhosis of liver without ascites, unspecified hepatic cirrhosis type; Frailty; Physical deconditioning Start: 12-03-2023 Non-patient / Non-visit Dr. Shailesh Ferrara Work Phone: [facility] Work Phone: Start: 11-26-2023 Non-patient / Non-visit Dr. Shailesh Ferrara Work Phone: [facility] Work Phone: Start: 11-19-2023 Non-patient / Non-visit Dr. Shailesh Ferrara Work Phone: [facility] Work Phone: Start: 11-12-2023 Non-patient / Non-visit Dr. Shailesh Ferrara Work Phone: [facility] Work Phone: Start: 11-05-2023 Non-patient / Non-visit Dr. Shailesh Ferrara Work Phone: [facility] Work Phone: Start: 10-29-2023 Non-patient / Non-visit Dr. Shailesh Ferrara Work Phone: [facility] Work Phone: Start: 10-22-2023 Non-patient / Non-visit Dr. Shailesh Ferrara Work Phone: [facility] Work Phone: Start: 10-15-2023 Non-patient / Non-visit Dr. Shailesh Ferrara Work Phone: [facility] Work Phone: Start: 10-08-2023 Non-patient / Non-visit Dr. Shailesh Ferrara Work Phone: [facility] Work Phone: Start: 10-03-2023 End: 10-03-2023 Refill Leia Tucker Central Scheduling Start: 10-03-2023 End: 10-03-[address] Castro Ferrara Work Phone: [facility] Start: 10-01-2023 Non-patient / Non-visit Dr. Shailesh Ferrara Work Phone: [facility] Work Phone: Start: 09-24-2023 Non-patient / Non-visit Dr. Shailesh Ferrara Work Phone: [facility] Work Phone: Start: 09-19-2023 End: 09-19-[address] Castro Ferrara Work Phone: [facility]-Pulmonary Medicine [facility] Work Phone: Start: 09-17-2023 Non-patient / Non-visit Dr. Shailesh Ferrara Work Phone: [facility] Work Phone: Start: 09-12-2023 End: 09-12-[address] Castro Ferrara Work Phone: [facility] Work Phone: Start: 09-10-2023 Non-patient / Non-visit Dr. Shailesh Ferrara Work Phone: [facility] Work Phone: Start: 09-03-2023 Non-patient / Non-visit Dr. Shailesh Ferrara Work Phone: [facility] Work Phone: Start: 08-27-2023 Non-patient / Non-visit Dr. Shailesh Ferrara Work Phone: [facility] Work Phone: Start: 08-20-2023 Non-patient / Non-visit [facility] Shialesh Ferr[facility] Start: 08-13-2023 Non-patient / Non-visit Dr. Shailesh Ferrara Work Phone: [facility] Work Phone: Start: 08-07-2023 End: 08-07-[address] Castro Ferrara Work Phone: [facility] Work Phone: Start: 08-06-2023 Non-patient / Non-visit Dr. Shailesh Ferrara Work Phone: [facility] Work Phone: Start: 07-31-2023 End: 07-31-[address] Castro Ferrara Work Phone: [facility] Work Phone: Start: 07-31-2023 End: 07-31-[address] Castro Ferrara Work Phone: [facility] Work Phone: Start: 07-30-2023 Non-patient / Non-visit Dr. Shailesh Ferrara Work Phone: [facility] Work Phone: Start: 07-23-2023 Non-patient / Non-visit Dr. Shailesh Ferrara Work Phone: [facility] Work Phone: Start: 07-16-2023 Non-patient / Non-visit Dr. Shailesh Ferrara Work Phone: [facility] Work Phone: Start: 07-13-2023 End: 07-13-2023 Office outpatient visit 25 minutes Vaishnavi Fry DO Work Phone: Gastroenterology and Hepatology [facility] Comment on above: Other cirrhosis of l iver (Primary Dx) Start: 07-11-2023 End: 07-11-[address] Castro Ferrara Work Phone: [facility] Work Phone: Start: 07-11-2023 End: 07-11-[address] Castro Ferrara Work Phone: [facility] Start: 07-09-2023 Non-patient / Non-visit Dr. Shailesh Ferrara Work Phone: [facility] Work Phone: Start: 07-02-2023 Non-patient / Non-visit [facility] Shailesh Ferrara [facility] Work [facility]: Start: 06-27-2023 Non-patient / Non-visit Dr. Shailesh Ferrara Work Phone: [facility] Work Phone: Start: 06-25-2023 Non-patient / Non-visit [facility] Shailesh Ferrara [facility]: Start: 06-18-2023 Non-patient / Non-visit Dr. Shailesh Ferrara Work Phone: [facility] Work Phone: Start: 06-15-2023 Non-patient / Non-visit Dr. Shailesh Ferrara Work Phone: [facility] Work Phone: Start: 06-11-2023 End: 06-18-[address] Castro Ferrara Work Phone: [facility]-Laboratory Work Phone: Start: 06-11-2023 End: 06-11-[address] Castro Ferrara Work Phone: [facility] Work Phone: Start: 06-08-2023 Non-patient / Non-visit Dr. Shailesh Ferrara Work Phone: [facility] Work Phone: Start: 06-06-2023 Non-patient / Non-visit Dr. Shailesh Ferrara Work Phone: [facility] Work Phone: Start: 06-04-2023 End: 06-04-[address] Castro Ferrara Work Phone: [facility] Work Phone: Start: 06-04-[address] Castro Ferrara Work Phone: [facility] Start: 06-04-2023 Non-patient / Non-visit Dr. Shailesh Ferrara Work Phone: [facility] Work Phone: Start: 05-28-2023 Non-patient / Non-visit Dr. Shailesh Ferrara Work Phone: [facility] Work Phone: Start: 05-25-2023 Non-patient / Non-visit Dr. Shailesh Ferrara Work Phone: [facility] Work Phone: Start: 05-23-2023 Non-patient / Non-visit Dr. Shailesh Ferrara Work Phone: [facility] Work Phone: Start: 05-21-2023 Non-patient / Non-visit Dr. Shailesh verduzco Josias Work Phone: [facility] Work Phone: Start: 05-14-2023 Non-patient / Non-visit Dr. Shailesh verduzco Josias Work Phone: [facility] Work Phone: Start: 05-07-2023 Non-patient / Non-visit Dr. Shailesh Ferrara Work Phone: [facility] Work Phone: Start: 04-30-2023 Non-patient / Non-visit Dr. Shailesh Davisutzman Work Phone: [facility] Work Phone: Start: 04-23-2023 Non-patient / Non-visit Dr. Shailesh verduzco Josias Work Phone: [facility] Work Phone: Start: 04-19-2023 End: 04-19-[address] Castro Ferrara Work Phone: [facility] Work Phone: Start: 04-19-2023 End: 04-19-[address] Castro Ferrara Work Phone: [facility]-Laboratory Work Phone: Start: 04-17-2023 Non-patient / Non-visit Dr. Shailesh Ferrara Work Phone: [facility] Work Phone: Start: 04-16-2023 Non-patient / Non-visit Dr. Shailesh Ferrara Work Phone: [facility] Work Phone: Start: 04-09-2023 End: 04-09-[address] Castro Ferrara Work Phone: [facility] Work Phone: Start: 04-09-2023 Non-patient / Non-visit Dr. Shailesh Ferrara Work Phone: [facility] Work Phone: Start: 04-04-2023 End: 04-04-[address] Castro Ferrara Work Phone: [facility] Work Phone: Start: 04-02-2023 End: 04-02-[address] Castro Ferrara Work Phone: [facility] Work Phone: Start: 03-29-2023 End: 03-29-2023 Emergency department patient visit Dr. Castro Ferrara Work Phone: [facility] Work Phone: Start: 03-29-2023 End: 03-29-2023 Dr. Castro Ferrara Work Phone: [facility]-Emergency Department Start: 03-29-2023 Non-patient / Non-visit Dr. Shailesh Ferrara Work Phone: [facility] Start: 03-29-2023 End: 03-29-2023 Admission to same day surgery center Dr. Castro Ferrara Work Phone: [facility]-Bone Char Kiln Tender/Special Procedures Start: 03-29-2023 End: 03-29-[address] Castro Ferrara Work Phone: [facility] Work Phone: Start: 03-29-2023 End: 03-29-2023 Dr. Castro Ferrara Work Phone: [facility]-Bone Char Kiln Tender/Special Procedures Start: 03-28-2023 End: 03-28-2023 Patient encounter procedure Darrel Garcia MD Work Phone: [facility] Comment on above: Urinary frequency (P rimary Dx) Start: 03-27-2023 End: 03-27-[address] Castro Ferrara Work Phone: [facility] Start: 03-27-2023 End: 03-27-2023 Dr. Castro Ferrara Work Phone: [facility] Start: 03-26-2023 End: 03-26-[address] Castro Ferrara Work Phone: [facility] Start: 03-26-2023 End: 03-26-2023 Dr. Castro Ferrara Work Phone: [facility] Start: 03-19-2023 Non-patient / Non-visit Dr. Shailesh Ferrara Work Phone: [facility] Start: 03-19-2023 Dr. Castro moy Work Phone: [facility] Start: 03-12-2023 Non-patient / Non-visit Dr. Domigno Atkisnon Work Phone: [facility] Start: 03-12-2023 Dr. Castro moy Work Phone: [facility] Start: 03-12-2023 End: 03-12-[address] Vinny Atkinson Work Phone: [facility] Work Phone: Start: 03-12-2023 End: 03-12-[address] Vinny Atkinson Work Phone: [facility] Start: 03-12-2023 End: 03-12-2023 Dr. Castro Ferrara Work Phone: [facility] Start: 03-08-2023 End: 03-08-[address] Vinny Atkinson Work Phone: [facility] Start: 03-08-2023 End: 03-08-2023 Dr. Castro Ferrara Work Phone: [facility] Start: 03-05-2023 End: 03-05-[address] Vinny Atkinson Work Phone: [facility] Start: 03-05-2023 End: 03-05-2023 Dr. Castro Ferrara Work Phone: [facility] Start: 03-01-2023 Non-patient / Non-visit Dr. Domingo Atkinson Work Phone: [facility] Start: 03-01-2023 Dr. Castro moy Work Phone: [facility] Start: 02-28-2023 Non-patient / Non-visit Dr. Domingo Atkinson Work Phone: [facility] Start: 02-28-2023 Dr. Castro moy Work Phone: [facility] Start: 02-26-2023 Non-patient / Non-visit Dr. Domingo Atkinson Work Phone: [facility] Start: 02-26-2023 Dr. Castro moy Work Phone: [facility] Start: 02-23-2023 Non-patient / Non-visit Dr. Domingo Atkinson Work Phone: [facility] Start: 02-23-2023 Dr. Castro moy Work Phone: [facility] Start: 02-02-2023 End: 02-16-[address] Vinny Atkinson Work Phone: [facility] Work Phone: Start: 02-02-2023 End: 02-16-[address] Vinny Atkinson Work Phone: [facility] Start: 02-02-2023 End: 02-16-2023 Dr. Castro Ferrara Work Phone: [facility] Start: 01-31-2023 Non-patient / Non-visit Dr. Domingo Atkinson Work Phone: [facility] Start: 01-31-2023 Dr. Castro moy Work Phone: [facility] Start: 01-29-2023 Non-patient / Non-visit Dr. Domingo Atkinson Work Phone: [facility] Start: 01-29-2023 Dr. Castro moy Work Phone: [facility] Start: 01-24-2023 End: 01-24-[address] Vinny Atkinson Work Phone: [facility] Work Phone: Start: 01-24-2023 End: 01-24-[address] Vinny Atkinson Work Phone: [facility] Start: 01-24-2023 End: 01-24-2023 Dr. Castro Ferrara Work Phone: [facility] Start: 01-22-2023 Non-patient / Non-visit Dr. Domingo Atkinson Work Phone: [facility] Start: 01-22-2023 Dr. Castro moy Work Phone: [facility] Start: 01-19-2023 Non-patient / Non-visit Dr. Domingo Atkinson Work Phone: [facility] Start: 01-19-2023 Dr. Castro moy Work Phone: [facility] Start: 01-18-2023 Non-patient / Non-visit Dr. Domingo Atkinson Work Phone: [facility] Start: 01-18-2023 Dr. Castro moy Work Phone: [facility] Start: 01-18-2023 Non-patient / Non-visit Dr. Domingo Atkinson Work Phone: [facility] Start: 01-18-2023 Dr. Castro moy Work Phone: [facility] Start: 01-17-2023 Non-patient / Non-visit Dr. Domingo Atkinson Work Phone: [facility] Start: 01-17-2023 Dr. Castro moy Work Phone: [facility] Start: 01-17-2023 Non-patient / Non-visit Dr. Domingo Atkinson Work Phone: [facility] Start: 01-17-2023 End: 01-19-2023 Evaluation and management of inpatient Dr. Vinny Atkinson Work Phone: [facility]-Progressive Care Unit Start: 01-17-2023 End: 01-19-2023 Dr. Castro Ferrara Work Phone: [facility]-Progressive Care Unit Start: 01-17-[address] Vinny Atkinson Work Phone: [facility]-Laboratory Start: 01-15-2023 End: 01-15-2023 Office outpatient visit 25 minutes Kelby Chance BUSINESS SERVICES SPECIALIST SALES-CUSTOMER ASSISTANT Work Phone: [facility]astroenterology [facility] Hepatology [facility] Comment on above: Cirrhosis of liver w ithout ascites, unspecified hepatic cirrhosis type (Primary Dx) Start: 01-03-2023 End: 01-03-[address] Vinny Atkinson Work Phone: [facility] Work Phone: Start: 01-03-2023 End: 01-03-[address] Vinny Atkinson Work Phone: [facility]-Laboratory Start: 01-03-2023 End: 01-03-2023 Dr. Castro Ferrara Work Phone: [facility] Start: 12-08-2022 End: 12-08-[address] Vinny Atkinson Work Phone: [facility] Work Phone: Start: 12-08-2022 End: 12-08-[address] Vinny Atkinson Work Phone: [facility]-Ultrasound, [facility] Start: 12-08-2022 End: 12-08-2022 Dr. Castro Ferrara Work Phone: [facility]-Ultrasound, [facility] Start: 12-06-2022 Non-patient / Non-visit Dr. Domingo Atkinson Work Phone: [facility] Start: 12-06-2022 End: 12-06-[address] Vinny Atkinson Work Phone: [facility]-Cardiovascular Services Start: 12-06-2022 End: 12-06-[address] Vinny Atkinson Work Phone: [facility] Work Phone: Start: 12-06-2022 End: 12-06-[address] V[facility] At[facility] Start: 12-06-[address] Vinny Atkinson Work Phone: [facility] Start: 12-06-2022 End: 12-06-2022 Dr. Castro Ferrara Work Phone: [facility] Start: 11-27-2022 End: 11-27-[address] Vinny Atkinson Work Phone: [facility] Start: 11-06-2022 End: 11-06-[address] Vinny Atkinson [facility] Start: 10-16-2022 End: 10-16-[address] Vinny Atkinson Work Phone: [facility] Start: 10-16-2022 End: 10-18-[address] Vinny Atkinson [facility] Start: 09-27-2022 End: 09-27-[address] Vinny Atkinson Work Phone: [facility] Start: 09-18-2022 End: 09-18-[address] Vinny Atkinson Work Phone: [facility] Work Phone: Start: 09-18-2022 End: 09-18-[address] Vinny Atkinson [facility] Start: 09-18-[address] Vinny Atkinson Work Phone: [facility] Start: 08-28-2022 End: 09-18-[address] Vinny Atkinson Work Phone: [facility] Work Phone: Start: 08-28-2022 End: 09-18-[address] Vinny Atkinson Work Phone: [facility]-Hris Developer Start: 08-17-2022 End: 08-17-[address] Vinny Atkinson Work Phone: [facility] Work Phone: Start: 08-17-2022 End: 08-17-[address] Vinny Atkinson Work Phone: [facility]-Labor[facility] Start: 08-03-[address] Vinny Atkinson Work Phone: [facility] Start: 07-31-2022 End: 07-31-[address] Vinny Atkinson Work Phone: [facility] Work Phone: Start: 07-31-2022 End: 07-31-[address] Vinny Atkinson Work Phone: [facility] Start: 07-18-2022 Non-patient / Non-visit Dr. Domingo Atkinson Work Phone: [facility] Phys[facility] Start: 07-17-2022 Non-patient / Non-visit Dr. Domingo Atkinson Work Phone: [facility] Start: 07-17-2022 Non-patient / Non-visit Dr. Domingo Atkinson Work Phone: [facility] Start: 07-16-2022 Non-patient / Non-visit Dr. Domingo Atkinson Work Phone: [facility] Start: 07-16-2022 Non-patient / Non-visit Dr. Domingo Atkinson Work Phone: [facility] Start: 07-15-2022 End: 07-18-2022 Non-patient / Non-visit Dr. Vinny Atkinson Work Phone: [facility] Start: 07-15-2022 End: 07-18-2022 Evaluation and management of inpatient Dr. Vinny Atkinson Work Phone: [facility]-Progressive Care Unit Start: 07-14-2022 End: 07-14-2022 Office outpatient visit 25 minutes Ethel Robertson APRN-CUSTOMER ASSISTANT Work Phone: Gastroenterology and Hepatology [facility] Comment on above: Cirrhosis of liver w ithout ascites, unspecified hepatic cirrhosis type (Primary Dx) Start: 07-05-2022 End: 07-05-[address] Vinny Atkinson Work Phone: [facility] Work Phone: Start: 07-05-2022 End: 07-05-[address] Vinny Atkinson Work Phone: [facility]-Laboratory Start: 07-05-[address] Vinny Atkinson Work Phone: [facility]Laboratory Start: 06-14-2022 End: 06-18-[address] Vinny Atkinson Work Phone: [facility]Laboratory Start: 06-06-2022 End: 06-06-[address] Vinny Atkinson Work Phone: [facility] Start: 06-06-[address] Vinny Atkinson Work Phone: [facility] Oncology Start: 05-23-2022 End: 05-23-[address] [facility] Start: 05-17-2022 End: 05-17-[address] Vinny Atkinson Work Phone: [facility]Labor[facility] Start: 05-08-2022 End: 05-08-[address] Vinny Atkinson Work Phone: [facility] Start: 04-24-2022 End: 04-24-[address] Vinny Atkinson Work Phone: [facility] Neurology Start: 04-14-2022 End: 04-14-[address] Vinny Atkinson Work Phone: [facility]Laboratory Start: 04-08-2022 End: 04-08-2022 Emergency department patient visit Dr. Vinny Atkinson Work Phone: [facility]-Emergency Department Start: 04-07-[address] Vinny Atkinson Work Phone: [facility]Laboratory Start: 04-06-2022 Non-patient / Non-visit Dr. Domingo Atkinson Work Phone: [facility] Inpatient Physicians Start: 04-05-2022 Non-patient / Non-visit Dr. Domingo Atkinson Work Phone: [facility] Inpatient Physicians Start: 04-04-2022 Non-patient / Non-visit Dr. Domingo Atkinson Work Phone: [facility] Start: 04-04-2022 Non-patient / Non-visit Dr. Domingo Atkinson Work Phone: [facility]patient [facility]icians Start: 04-04-2022 End: 04-06-2022 Evaluation and management of inpatient Dr. Vinny Atkinson Work Phone: [facility]Progressive Care Unit Start: 04-03-[address] Vinny Atkinson Work Phone: [facility]Laboratory Start: 03-17-2022 End: 03-17-2022 Subsequent hospital visit by physician Kelby Chance APRN-BILL Work Phone: [facility] Comment on above: Arrived Start: 03-03-2022 End: 03-03-[address] Vinny Atkinson Work Phone: [facility]Labor[facility] Start: 02-20-2022 End: 02-20-[address] Vinny Atkinson Work Phone: [facility]-Pulmonary Services/Neurology Start: 02-17-[address] Vinny Atkinson Work Phone: [facility]Laboratory Start: 02-16-2022 Non-patient / Non-visit Dr. Domingo Atkinson Work Phone: [facility] Start: 02-16-2022 End: 02-16-[address] Vinny Atkinson [facility] Start: 02-10-2022 End: 02-16-[address] Vinny Atkinson Work Phone: [facility]Labor[facility] Start: 02-09-2022 End: 02-09-[address] Vinny Atkinson Work Phone: [facility]Sleep Lab Start: 02-01-2022 End: 02-01-[address] Vinny Atkinson Work Phone: [facility] Start: 01-26-2022 End: 01-26-[address] Vinny Atkinson [facility] Start: 01-16-2022 End: 01-16-[address] Vinny Atkinson Work Phone: [facility] Start: 01-12-2022 Non-patient / Non-visit Dr. Domingo Atkinson Work Phone: [facility] Inpatient Physicians Start: 01-12-2022 Non-patient / Non-visit Dr. Domingo Atkinson Work Phone: [facility] Start: 01-11-2022 Non-patient / Non-visit Dr. Domingo Atkinson Work Phone: [facility] Inpatient Physicians Start: 01-10-2022 Non-patient / Non-visit Dr. Domingo Atkinson Work Phone: [facility] Start: 01-10-2022 End: 01-12-2022 Evaluation and management of inpatient Dr. Vinny Atkinson [facility] Start: 01-09-2022 End: 01-09-[address] Vinny Atkinson Work Phone: [facility] Neurology Start: 12-27-2021 End: 12-27-[address] Vinny Atkinson Work Phone: [facility]-Laboratory, Specimen Start: 12-15-2021 End: 12-15-[address] Vinny Atkinson Work Phone: [facility] Start: 12-14-2021 Non-patient / Non-visit Dr. Domingo Atkinson Work Phone: [facility] Start: 12-14-2021 End: 12-14-[address] Vinyn Atkinson Work Phone: [facility]-Cardiovascular Services Start: 12-14-2021 End: 12-19-[address] Vinny Atkinson Work Phone: [facility] Start: 11-29-2021 End: 11-29-[address] Vinny Atkinson Work Phone: [facility]-Laboratory, Phy Office 3rd Flr Start: 11-25-2021 End: 11-25-[address] Vinny Atkinson Work Phone: [facility]-Physical Therapy Start: 11-21-2021 End: 11-21-[address] Vinny Atkinson [facility] Start: 11-16-2021 End: 11-19-[address] Vinny Atkinson [facility] Start: 10-31-2021 End: 10-31-[address] Vinny Atkinson Work Phone: [facility] Start: 10-31-2021 End: 10-31-[address] Vinny Atkinson Work Phone: [facility] Start: 05-24-2021 End: 05-24-2021 ambulatory UNKNOWN PROVIDER Facility:[facility] Start: 05-19-2021 ambulatory [facility] Procedures Date Procedure Procedure Detail Performing Clinician Start: 05-27-2025 Blood count smear mcrscp w/mnl difrntl wbc count Dr. Castro Ferrara DO Work Phone: Start: 05-27-2025 Calculation of international normalized ratio Dr. Castro Ferrara DO Work Phone: Start: 05-27-2025 Mean corpuscular hemoglobin concentration determination Dr. Castro Ferrara DO Work Phone: Start: 05-27-2025 Nucleated red blood cell count procedure Dr. Castro Ferrara DO Work Phone: Start: 05-27-2025 Platelet mean volume determination Dr. Mk Ferrara DO Work Phone: Start: 04-29-2025 MRI of lower extremity Dr. Castro Ferrara DO Work Phone: Start: 04-29-2025 CT of chest without contrast Dr. Castro Godoy DO Work Phone: Start: 04-18-2025 Plain radiography of pelvis Dr. Castro reyes DO Work Phone: Start: 04-18-2025 Plain X-ray of femur Dr. Castro Ferrara DO Work Phone: Start: 04-08-2025 Radionuclide gastric emptying study Dr. Castro Ferrara DO Work Phone: Start: 03-23-2025 Computed tomography of abdomen and pelvis with contrast Dr. Castro Ferrara DO Work Phone: Start: 03-06-2025 GENERAL PROCEDURE Alexander Stiles MD Work Phone: Start: 03-06-2025 Prothrombin time Key Rizo MD Work Phone: Start: 03-05-2025 Hemodialysis Alexander Stiles MD Work Phone: Start: 03-05-2025 Antibody screen Hoda Moore MD Work Phone: Start: 03-05-2025 Antibody screen RIKA CASTRO Comment on above: Performed By: #### XM #### [facility] [address] Start: 03-05-2025 Assay of magnesium Hien Anderson MD Work Phone: Start: 03-05-2025 Blood typing serologic abo Agueda mcconnell MD Work Phone: Start: 03-04-2025 Thromboplastin time partial plasma/whole blood Nayeli Casillas MD Work Phone: Start: 03-04-2025 Thromboplastin time partial plasma/whole blood Nayeli Casillas MD Work Phone: Start: 03-04-2025 GENERAL PROCEDURE Alexander Stiles MD Work Phone: Start: 03-04-2025 Culture bacterial blood aerobic w/id isolates Mel Aldana MD Work Phone: Start: 03-04-2025 Thromboplastin time partial plasma/whole blood Nayeli Casillas MD Work Phone: Start: 03-04-2025 Thromboplastin time partial plasma/whole blood Nayeli Casillas MD Work Phone: Start: 03-04-2025 Prothrombin time Key Rizo MD Work Phone: Start: 03-03-2025 Thromboplastin time partial plasma/whole blood Nayeli Casillas MD Work Phone: Start: 03-03-2025 Culture bacterial blood aerobic w/id isolates Mel Aldana MD Work Phone: Start: 03-03-2025 Prothrombin time Mel Aldana MD Work Phone: Start: 03-03-2025 Hemodialysis Taya ROSE Work Phone: Start: 03-03-2025 Assay of magnesium Hien Anderson MD Work Phone: Start: 03-02-2025 Prothrombin time Key Rizo MD Work Phone: Start: 03-02-2025 Thromboplastin time partial plasma/whole blood Nayeli Casillas MD Work Phone: Start: 03-02-2025 Assay of urea nitrogen quantitative Taya ROSE Work Phone: Start: 03-02-2025 Thromboplastin time partial plasma/whole blood Nayeli Casillas MD Work Phone: Start: 03-02-2025 Antibody screen Hoda Moore MD Work Phone: Start: 03-02-2025 Antibody screen SILVIATAMAR SCHWARTZG Comment on above: Performed By: #### XM #### [facility] ([facility]) [address] [place] [address] Start: 03-02-2025 Blood typing serologic abo Agueda mcconnell MD Work Phone: Start: 03-02-2025 Prothrombin time Key Rizo MD Work Phone: Start: 03-01-2025 Thromboplastin time partial plasma/whole blood Nayeli Casillas MD Work Phone: Start: 03-01-2025 Thromboplastin time partial plasma/whole blood Nayeli Casillas MD Work Phone: Start: 03-01-2025 Thromboplastin time partial plasma/whole blood Nayeli Casillas MD Work Phone: Start: 03-01-2025 Hemodialysis [place] J Kalani [facility] Work Phone: Start: 02-28-2025 Prothrombin time Key Rizo MD Work Phone: Start: 02-28-2025 BLOOD CULTURE IDENTIFICATION PANEL Ladyhet u Jayesh Stiles MD Work Phone: Start: 02-28-2025 Cul bact xcpt urine blood/stool aerobic isol Alexander Stiles MD Work Phone: Start: 02-28-2025 GENERAL PROCEDURE Alexander Stiles MD Work Phone: Start: 02-28-2025 Thromboplastin time partial plasma/whole blood Nayeli Casillas MD Work Phone: Start: 02-28-2025 Thromboplastin time partial plasma/whole blood Nayeli Casillas MD Work Phone: Start: 02-28-2025 Assay of magnesium Hien Anderson MD Work Phone: Start: 2025 Thromboplastin time partial plasma/whole blood Nayeli Casillas MD Work Phone: Start: 2025 Hemodialysis [place] Kurt JACK Work Phone: Start: 2025 Thromboplastin time partial plasma/whole blood Nayeli Casillas MD Work Phone: Start: 2025 Antibody screen Hoda Moore MD Work Phone: Start: 2025 Antibody screen RIKA CASTRO Comment on above: Performed By: #### XM #### [facility] (DEFAULT) [address] [address] Start: 2025 Blood typing serologic abo Agueda mcconnell MD Work Phone: Start: 2025 Prothrombin time Key Rizo MD Work Phone: Start: 02-26-2025 Thromboplastin time partial plasma/whole blood Nayeli Casillas MD Work Phone: Start: 02-25-2025 Assay of magnesium Hien Anderson MD Work Phone: Start: 02-25-2025 Hemodialysis [place] Kaci ROSE Work Phone: Start: 02-25-2025 Thromboplastin time partial plasma/whole blood Nayeli Casillas MD Work Phone: Start: 02-24-2025 Prothrombin time Key Rizo MD Work Phone: Start: 02-24-2025 Hemodialysis Maria Eugenia ROSE Work Phone: Start: 02-24-2025 Thromboplastin time partial plasma/whole blood Nayeli Casillas MD Work Phone: Start: 02-24-2025 Prothrombin time Key Rizo MD Work Phone: Start: 02-24-2025 Antibody screen Hoda Moore MD Work Phone: Start: 02-24-2025 Antibody screen SILVIADIANThomas MARBELLA Comment on above: Performed By: #### XM #### [facility] (DEFAULT) [address] [address] Start: 02-23-2025 End: 02-24-2025 Assay of magnesium Hien Anderson MD Work Phone: Start: 02-24-2025 Blood typing serologic abo Agueda mcconnell MD Work Phone: Start: 02-23-2025 Thromboplastin time partial plasma/whole blood Nayeli Casillas MD Work Phone: Start: 02-23-2025 Thromboplastin time partial plasma/whole blood Nayeli Casillas MD Work Phone: Start: 02-23-2025 Thromboplastin time partial plasma/whole blood Nayeli Casillas MD Work Phone: Start: 02-23-2025 Prothrombin time Key Rizo MD Work Phone: Start: 02-22-2025 Thromboplastin time partial plasma/whole blood Nayeli Casillas MD Work Phone: Start: 02-22-2025 Thromboplastin time partial plasma/whole blood Nayeli Casillas MD Work Phone: Start: 02-22-2025 Prothrombin time Key Rizo MD Work Phone: Start: 02-22-2025 Hemodialysis Taya JACK Work Phone: Start: 02-21-2025 Thromboplastin time partial plasma/whole blood Nayeli Casillas MD Work Phone: Start: 02-21-2025 Thromboplastin time partial plasma/whole blood Nayeli Casillas MD Work Phone: Start: 02-21-2025 Antibody screen Hoda Moore MD Work Phone: Start: 02-21-2025 Antibody screen RIKA CASTRO Comment on above: Performed By: #### SURGP #### [facility] ([facility]) [address] [place] [address] Start: 02-21-2025 Assay of magnesium Castro A Yann [facility] Work Phone: Start: 02-21-2025 Blood typing serologic abo Agueda mcconnell MD Work Phone: Start: 02-20-2025 Thromboplastin time partial plasma/whole blood Nayeli Casillas MD Work Phone: Start: 02-20-2025 Thromboplastin time partial plasma/whole blood Nayeli Casillas MD Work Phone: Start: 02-20-2025 Hemodialysis Taya JACK Work Phone: Start: 02-20-2025 Assay of magnesium Castro A [facility] Work Phone: Start: 02-19-2025 Thromboplastin time partial plasma/whole blood Nayeli Casillas MD Work Phone: Start: 02-19-2025 Thromboplastin time partial plasma/whole blood Nayeli Casillas MD Work Phone: Start: 02-19-2025 Assay of magnesium Castro A [facility] Work Phone: Start: 02-18-2025 Thromboplastin time partial plasma/whole blood Nayeli Casillas MD Work Phone: Start: 02-18-2025 Hemodialysis Kelby Elizondo BUSINESS SERVICES SPECIALIST SALES-CUSTOMER ASSISTANT Work Phone: Start: 02-18-2025 Thromboplastin time partial plasma/whole blood Nayeli Casillas MD Work Phone: Start: 02-18-2025 Antibody screen Hoda Moore MD Work Phone: Start: 02-18-2025 Antibody screen SILVIADIANThomas CASTRO Comment on above: Performed By: #### XM #### [facility] [address] Start: 02-18-2025 End: 02-18-2025 Assay of magnesium Castro A [facility] Work Phone: Start: 02-18-2025 Blood typing serologic abo Agueda mcconnell MD Work Phone: Start: 02-18-2025 Thromboplastin time partial plasma/whole blood Nayeli Casillas MD Work Phone: Start: 02-17-2025 Thromboplastin time partial plasma/whole blood Nayeli Casillas MD Work Phone: Start: 02-17-2025 Thromboplastin time partial plasma/whole blood Nayeli Casillas MD Work Phone: Start: 02-17-2025 Echo tthrc r-t 2d w/wom-mode compl spec&colr d Agueda Collins MD Work Phone: Start: 02-17-2025 Assay of magnesium Castro Lerner [facility] Work Phone: Start: 02-16-2025 Thromboplastin time partial plasma/whole blood Nayeli Casillas MD Work Phone: Start: 02-16-2025 Hemodialysis Maria Eugenia ROSE Work Phone: Start: 02-16-2025 CONTINUOUS CARDIAC MONITORING STRIP Other Other Start: 02-16-2025 CARDIAC RHYTHM (SCANNED) Other Other OT Start: 02-16-2025 Hemodialysis Maria Eugenia ROSE Work Phone: Start: 02-16-2025 Colonoscopy flx dx w/collj spec when pfrmd Elie Sanches MD Work Phone: Start: 02-16-2025 DIAGNOSTIC UPPER ENDOSCOPY lEie Aparicio Work Phone: Start: 02-16-2025 Level iv surg pathology gross&microscopic exam Gen Oh MD Work Phone: Start: 02-16-2025 Creatinine blood Agueda Collins MD Work Phone: Start: 02-15-2025 Blood count platelet automated Nayeli Casillas MD Work Phone: Start: 02-15-2025 Antibody screen Hoda Moore MD Work Phone: Start: 02-15-2025 Antibody screen RIKA CASTRO Comment on above: Performed By: #### XM #### [facility] (DEFAULT) [address] [place] [address] Start: 02-15-2025 Blood typing serologic abo Agueda mcconnell MD Work Phone: Start: 02-15-2025 Prothrombin time Nayeli Casillas MD Work Phone: Start: 02-14-2025 Thromboplastin time partial plasma/whole blood Nayeli Casillas MD Work Phone: Start: 02-14-2025 Assay of folic acid serum Agueda Collins MD Work Phone: Start: 02-14-2025 Smr prim src gram/giemsa stain bct fungi/cell Agueda Collins MD Work Phone: Start: 02-14-2025 Respiratory virus DNA+RNA [Identifier] in Unspecified specimen by RENETTA with probe detection Agueda Collins MD Work Phone: Start: 02-14-2025 Thromboplastin time partial plasma/whole blood Nayeli Casillas MD Work Phone: Start: 02-14-2025 CONTINUOUS CARDIAC MONITORING STRIP Other Other Start: 02-14-2025 Bilirubin direct Nayeli Casillas MD Work Phone: Start: 02-13-2025 Blood count complete automated Nayeli Casillas MD Work Phone: Start: 02-13-2025 Thromboplastin time partial plasma/whole blood Nayeli Casillas MD Work Phone: Start: 02-13-2025 CHRONIC HEPATITIS PANEL(DIALYSIS, ESRD, TIEN) Maria Eugenia JACK Work Phone: Start: 02-13-2025 Hepatitis b surf antibody hbsab Maria Eugenia ROSE Work Phone: Start: 02-13-2025 Iaad ia hepatitis b surface antigen Maria Eugenia ROSE Work Phone: Start: 02-13-2025 Lactate dehydrogenase ldh Nayeli echavarria MD Work Phone: Start: 02-13-2025 Hemodialysis Maria Eugenia Landry ROSE Work Phone: Start: 02-13-2025 Ct thorax w/o contrast material Nayeli Casillas MD Work Phone: Start: 02-13-2025 Bilirubin direct Nayeli Casillas MD Work Phone: Start: 02-13-2025 CBC AND ELECTRONIC DIFF Nayeli Casillas MD Work Phone: Start: 02-13-2025 Complete blood count with white cell differential, automated Nayeli Casillas MD Work Phone: Start: 02-12-2025 Blood count smear mcrscp w/mnl difrntl wbc count Dr. Castro Ferrara DO Work Phone: Start: 02-12-2025 Calculation of international normalized ratio Dr. Castro Ferrara DO Work Phone: Start: 02-12-[address] Castro Ferrara DO Work Phone: Start: 02-12-2025 Mean corpuscular hemoglobin concentration determination Dr. Castro Ferrara DO Work Phone: Start: 02-12-2025 Nucleated red blood cell count procedure Dr. Castro Ferrara DO Work Phone: Start: 02-12-2025 Platelet mean volume determination Dr. Mk Ferrara DO Work Phone: Start: 02-12-2025 Computed tomography of abdomen and pelvis with contrast Dr. Castro Ferrara DO Work Phone: Start: 02-12-2025 CT of chest without contrast Dr. Castro Godoy DO Work Phone: Start: 02-12-2025 X-ray of chest, PA and lateral views Dr. Castro Ferrara DO Work Phone: Start: 02-12-2025 Blood count smear mcrscp w/mnl difrntl wbc count Dr. Castro Ferrara DO Work Phone: Start: 02-12-2025 Mean corpuscular hemoglobin concentration determination Dr. Castro Ferrara DO Work Phone: Start: 02-12-2025 Nucleated red blood cell count procedure Dr. Castro Ferrara DO Work Phone: Start: 02-12-2025 Platelet mean volume determination Dr. Mk Ferrara DO Work Phone: Start: 02-12-[address] Castro Ferrara DO Work Phone: Start: 02-12-2025 Measurement of occult blood in stool specimen using immunoassay Dr. Castro Ferrara DO Work Phone: Start: 12-31-[address] Castro lira DO Work Phone: Start: 12-19-2024 Hemodialysis Trina B Santos BUSINESS SERVICES SPECIALIST SALES-CUSTOMER ASSISTANT Work Phone: Start: 12-19-2024 Creatinine blood Malcom Fuller MD Work Phone: Start: 12-18-2024 Prothrombin time Malcom Fuller MD Work Phone: Start: 12-18-2024 Creatinine blood Malcom Fuller MD Work Phone: Start: 12-18-2024 Hepatic function panel Malcom rod MD Work Phone: Start: 12-17-[address] Castro Ferrara DO Work Phone: Start: 12-17-2024 Blood count smear mcrscp w/mnl difrntl wbc count Dr. Castro Ferrara DO Work Phone: Start: 12-17-2024 BUN/Creatinine ratio Dr. Castro Ferrara DO Work Phone: Start: 12-17-2024 Calculation of international normalized ratio Dr. Castro Ferrara DO Work Phone: Start: 12-17-[address] Castro Ferrara DO Work Phone: Start: 12-17-2024 Mean corpuscular hemoglobin concentration determination Dr. Castro Ferrara DO Work Phone: Start: 12-17-2024 Measurement of renal function Dr. Castro whitman DO Work Phone: Start: 12-17-2024 Nucleated red blood cell count procedure Dr. Castro Ferrara DO Work Phone: Start: 12-17-2024 Platelet mean volume determination Dr. Mk Ferrara DO Work Phone: Start: 12-16-[address] Castro Ferrara DO Work Phone: Start: 12-16-2024 Blood count smear mcrscp w/mnl difrntl wbc count Dr. Castro Ferrara DO Work Phone: Start: 12-16-2024 BUN/Creatinine ratio Dr. Castro Ferrara DO Work Phone: Start: 12-16-2024 Calculation of international normalized ratio Dr. Castro Ferrara DO Work Phone: Start: 12-16-[address] Castro Ferrara DO Work Phone: Start: 12-16-2024 Mean corpuscular hemoglobin concentration determination Dr. Castro Ferrara DO Work Phone: Start: 12-16-2024 Measurement of renal function Dr. Castro whitman DO Work Phone: Start: 12-16-2024 Nucleated red blood cell count procedure Dr. Castro Ferrara DO Work Phone: Start: 12-16-2024 Platelet mean volume determination Dr. Mk Ferrara DO Work Phone: Start: 05-28-2024 Albumin/Globulin ratio Dr. Castro Ferrara DO Work Phone: Start: 05-28-[address] Castro Ferrara DO Work Phone: Start: 05-28-2024 BUN/Creatinine ratio Dr. Castro Ferrara DO Work Phone: Start: 05-28-[address] Castro Ferrara DO Work Phone: Start: 05-28-[address] Castro moy DO Work Phone: Start: 05-28-2024 Measurement of renal function Dr. Castro whitman DO Work Phone: Start: 04-02-2024 Cardiac electrophysiology Ronnie leyva MD Work Phone: Start: 04-02-2024 CBC AND ELECTRONIC DIFF Aileen Phoenix BUSINESS SERVICES SPECIALIST SALES-CUSTOMER ASSISTANT Work Phone: Start: 04-02-2024 Complete blood count with white cell differential, automated Aileen Phoenix BUSINESS SERVICES SPECIALIST SALES-CUSTOMER ASSISTANT Work Phone: Start: 04-02-2024 Creatinine blood Aileen Phoenix BUSINESS SERVICES SPECIALIST SALES-CUSTOMER ASSISTANT Work Phone: Start: 04-02-2024 Ecg routine ecg w/least 12 lds w/i&r Aileen Phoenix BUSINESS SERVICES SPECIALIST SALES-CUSTOMER ASSISTANT Work Phone: Start: 03-24-2024 Echo transthorc r-t 2d w/wo m-mode rec f-up/lmtd Aguirre Danilo Nelson ROSE Work Phone: Start: 12-26-[address] Castro lira Work Phone: Start: 07-31-2023 CT of abdomen with contrast Dr. Castro reyes Work Phone: Start: 06-04-2023 Allergen spec ige crude allergen extract each Dr. Castro Ferrara DO Work Phone: Start: 06-04-[address] Castro lira DO Work Phone: Start: 03-29-2023 Plain chest X-ray Dr. Castro Ferrara Work Phone: Start: 03-28-2023 Cysto w/simple removal stone & stent Darrel Garcia MD Work Phone: Start: 03-12-2023 Plain chest X-ray Dr. Vinny Atkinson Work Phone: Start: 02-03-2023 Lipid 1996 panel - Serum or Plasma Darrel Garcia MD Work Phone: Start: 01-18-2023 Measurement of occult blood in stool specimen using immunoassay Dr. Castro Ferrara Work Phone: Start: 01-18-[address] Vinny guido Work Phone: Start: 12-08-[address] Vinny guido Work Phone: Start: 07-31-[address] Vinny guido Work Phone: Start: 07-17-[address] Vinny guido Work Phone: Start: 07-15-2022 Plain chest X-ray Dr. Vinny Atkinson Work Phone: Start: 07-15-2022 CT of head without contrast Dr. Vinny myers Work Phone: Start: 04-04-2022 Measurement of occult blood in stool specimen using immunoassay Dr. Vinny Atkinson Work Phone: Start: 01-11-2022 End: 01-11-2022 Legionella pneumophila antigen assay Dr. Vinny Atkinson Work Phone: Start: 01-11-2022 Streptococcus pneumoniae Antigen (M Dr. Vinny Atkinson Work Phone: Start: 01-10-2022 Bacteria identified in Blood by Culture Dr. Vinny Atkinson Work Phone: Start: 01-10-2022 Ova OR parasites identification Dr. Manjinder Atkinson Work Phone: Start: 01-10-2022 Plain chest X-ray Dr. Vinny Atkinson Work Phone: Start: 01-10-2022 SARS-CoV-2 Antigen (Rapid) Dr. Vinny guido Work Phone: Start: 01-10-2022 CT of abdomen and pelvis without contrast Dr. Vinny Atkinson Work Phone: Start: 05-20-2021 Lipid 1996 panel - Serum or Plasma Kelby Chance BUSINESS SERVICES SPECIALIST SALES-CUSTOMER ASSISTANT Work Phone: Start: 08-13-2018 Stool Occult Blood (SANDRA) Dr. Castro Jama an Work Phone: Start: 08-13-2018 Dr. Castro Ferrara DO Work Phone: Start: 06-18-2018 Dr. Castro Ferrara DO Work Phone: Start: 08-28-2017 End: 08-28-2017 Interrogation eval f2f implantable cv mntr sys Jane Torres PA-C Work Phone: Start: 08-28-2017 End: 08-28-2017 Program eval implantable in prsn multi ld pacer Jane Torres PA-C Work Phone: Start: 07-16-2017 End: 07-16-2017 Follow Up Appt 6 months Jeff Grullon MD Start: 07-16-2017 End: 07-16-2017 MMM Jeff Grullon MD Start: 05-04-2017 End: 06-26-2017 Follow Up Appt 3 months Jeff Grullon MD Start: 05-04-2017 End: 06-26-2017 Pacer Clinic Jeff Grullon MD Start: 05-04-2017 End: 05-04-2017 Program eval implantable in prsn multi ld pacer Jeff Grullon MD Start: 05-02-2017 End: 05-02-2017 *BMP Jane Torres PA-C Work Phone: Start: 05-02-2017 End: 05-02-2017 *CBC with Differential Jane Torres PA-C Work Phone: Start: 05-02-2017 End: 06-26-2017 Follow Up Appt Other Jane Torres PA-C Work Phone: Start: 05-02-2017 End: 05-02-2017 Natriuretic peptide B [Mass/volume] in Blood Jane Torres PA-C Work Phone: Start: 05-02-2017 End: 06-26-2017 PFM Jane Torres PA-C Work Phone: Start: 05-02-2017 End: 05-02-2017 Thyrotropin [Units/volume] in Serum or Plasma Jane Torres PA-C Work Phone: Start: 05-02-2017 End: 05-02-2017 Thyroxine (T4) [Mass/volume] in Serum or Plasma Jane Torres PA-C Work Phone: Start: 02-28-2017 End: 03-06-2017 INR in Platelet poor plasma by Coagulation assay Jeff Grullon MD Start: 02-19-2017 End: 02-22-2017 *CBC w/Diff - oncology ONLY Carla lezama Work Phone: Start: 02-19-2017 End: 02-22-2017 *CMP Complete Metabolic Panel Carla Schmid Work Phone: Start: 02-19-2017 End: 02-22-2017 Carcinoembryonic Ag [Mass/volume] in Serum or Plasma Karthikeyan Turner MD Work Phone: Start: 02-19-2017 End: 02-19-2017 Lactate dehydrogenase [Enzymatic activity/volume] in Serum or Plasma Carla Schmid Work Phone: Start: 02-19-2017 End: 02-19-2017 Magnesium [Mass/volume] in Serum or Plasma Carla Schmid Work Phone: Start: 02-19-2017 End: 02-19-2017 Urate [Mass/volume] in Serum or Plasma Carla Schmid Work Phone: Start: 01-23-2017 End: 04-17-2017 Follow Up Appt 3 months Jane Torres PA-C Work Phone: Start: 01-23-2017 End: 04-17-2017 Pacer Clinic Jane Torres PA-C Work Phone: Start: 01-23-2017 End: 01-23-2017 Program eval implantable in prsn multi ld pacer Jane Torres PA-C Work Phone: Start: 12-18-2016 End: 12-18-2016 Follow Up Appt 6 months Jeff Grullon MD Start: 12-18-2016 End: 12-18-2016 [facility] Jeff Grullon MD Start: 10-17-2016 End: 04-10-2017 Follow Up Appt 3 months Jane Torres PA-C Work Phone: Start: 10-17-2016 End: 04-10-2017 Pacer Clinic Jane Torres PA-C Work Phone: Start: 10-17-2016 End: 10-17-2016 Program eval implantable in prsn multi ld pacer Jane Torres PA-C Work Phone: Start: 09-06-2016 End: 09-11-2016 C reactive protein [Mass/volume] in Serum or Plasma by High sensitivity method Eli Rajan MD Start: 09-06-2016 End: 09-11-2016 Erythrocyte sedimentation rate Eli Rajan MD Start: 08-28-2016 End: 08-28-2016 Follow Up Appt 3 months Jeff Grullon MD Start: 08-28-2016 End: 08-28-2016 Follow Up Appt Other Jeff Grullon MD Start: 08-28-2016 End: 08-28-2016 PFM Jeff Grullon MD Start: 07-13-2016 End: 07-13-2016 *BMP Jeff Grullon MD Start: 07-13-2016 End: 07-13-2016 INR in Platelet poor plasma by Coagulation assay Jeff Grullon MD Start: 07-05-2016 End: 08-28-2016 Follow Up Appt 3 months Jeff Grullon MD Start: 07-05-2016 End: 08-28-2016 Pacer Clinic Jeff Grullon MD Start: 07-05-2016 End: 07-05-2016 Program eval implantable in prsn multi ld pacer Jeff Grullon MD Start: 06-29-2016 End: 04-10-2017 Echocardiography Jeff Grullon MD Start: 06-29-2016 End: 06-29-2016 Follow Up Appt 6 weeks Jeff Grullon MD Start: 06-29-2016 End: 06-29-2016 MMM Jeff Grullon MD Start: 04-10-2016 End: 10-16-2016 Follow Up Appt 2 weeks Kaylin Kyle MD Start: 03-09-2016 End: 04-10-2017 *Hepatic Function Panel Jeff Grullon MD Start: 03-09-2016 End: 04-10-2017 Lipid 1996 panel - Serum or Plasma Jeff Grullon MD Start: 01-26-2016 End: 03-01-2016 Follow Up Appt Other Kaylin Kyle MD Start: 12-15-2015 End: 06-29-2016 Follow Up Appt 3 months Jeff Grullon MD Start: 12-15-2015 End: 06-29-2016 Pacer Clinic Jeff Grullon MD Start: 12-15-2015 End: 12-15-2015 Program eval implantable in prsn multi ld pacer Jeff Grullon MD Start: 12-03-2015 End: 12-09-2015 *Hepatic Function Panel Jeff Grullon MD Start: 12-03-2015 End: 12-09-2015 Lipid 1996 panel - Serum or Plasma Jeff Grullon MD Start: 09-13-2015 End: 09-21-2015 *BMP Jane Torres PA-C Work Phone: Start: 09-13-2015 End: 09-21-2015 *CBC with Differential Jane Torres PA-C Work Phone: Start: 09-13-2015 End: 06-29-2016 Follow Up Appt 3 months Jane Torres PA-C Work Phone: Start: 09-13-2015 End: 06-29-2016 Follow Up Appt 6 months Jane Torres PA-C Work Phone: Start: 09-13-2015 End: 06-29-2016 Pacer Clinic Jane Torres PA-C Work Phone: Start: 09-13-2015 End: 06-29-2016 PFM Jane Torres PA-C Work Phone: Start: 09-13-2015 End: 09-13-2015 Program eval implantable in prsn multi ld pacer Jane Torres PA-C Work Phone: Start: 06-03-2015 End: 06-03-2015 *Hepatic Function Panel Jane Torres PA-C Work Phone: Start: 06-03-2015 End: 06-03-2015 Lipid 1996 panel - Serum or Plasma Rosalie Torres PA-C Work Phone: Start: 05-14-2015 End: 09-01-2015 Follow Up Appt 3 months Jeff Grullon MD Start: 05-14-2015 End: 05-19-2015 Interrogation eval f2f implantable cv mntr sys Jeff Grullon MD Start: 05-14-2015 End: 09-01-2015 Pacer Clinic Jeff Grullon MD Start: 05-14-2015 End: 05-19-2015 Program eval implantable in prsn multi ld pacer Jeff Grullon MD Start: 03-03-2015 End: 06-03-2015 *BMP Jane Torres PA-C Work Phone: Start: 02-26-2015 End: 03-01-2015 Follow Up Appt 6 months Jeff Grullon MD Start: 02-26-2015 End: 03-01-2015 MMM Jeff Grullon MD Start: 02-17-2015 End: 03-03-2015 *Hepatic Function Panel Jane Torres PA-C Work Phone: Start: 02-17-2015 End: 03-03-2015 Lipid 1996 panel - Serum or Plasma Rosalie Torres PA-C Work Phone: Start: 02-08-2015 End: 03-01-2015 Follow Up Appt 3 months Jeff Grullon MD Start: 02-08-2015 End: 03-01-2015 Pacer Clinic Jeff Grullon MD Start: 02-08-2015 End: 02-08-2015 Program eval implantable in prsn multi ld pacer Jeff Grullon MD Start: 12-17-2014 End: 03-01-2015 INR in Platelet poor plasma by Coagulation assay Jeff Grullon MD Start: 11-24-2014 End: 11-24-2014 Nurse, Teaching, Wound Check (no charge) Jane Torres PA-C Work Phone: Start: 10-29-2014 End: 11-16-2014 Follow Up BP Check Jeff Grullon MD Start: 10-27-2014 End: 03-01-2015 Follow Up Appt 3 months Jane Torres PA-C Work Phone: Start: 10-27-2014 End: 10-28-2014 Interrogation eval f2f implantable cv mntr sys Jane Torres PA-C Work Phone: Start: 10-27-2014 End: 03-01-2015 Pacer Clinic Jane Torres PA-C Work Phone: Start: 10-27-2014 End: 10-28-2014 Program eval implantable in prsn multi ld pacer Jane Torres PA-C Work Phone: Start: 07-28-2014 End: 07-28-2014 Follow Up Appt 6 months Jane Torres PA-C Work Phone: Start: 07-28-2014 End: 07-28-2014 PFM Jane Torres PA-C Work Phone: Start: 07-23-2014 End: 07-28-2014 Follow Up Appt 3 months Jeff Grullon MD Start: 07-23-2014 End: 07-28-2014 Pacer Clinic Jeff Grullon MD Start: 07-23-2014 End: 07-23-2014 Program eval implantable in prsn multi ld pacer Jeff Grullon MD Start: 05-19-2014 End: 06-09-2014 Lipid 1996 panel - Serum or Plasma Jeff Grullon MD Start: 05-15-2014 End: 06-09-2014 *Hepatic Function Panel Jeff Grullon MD Start: 04-29-2014 End: 05-01-2014 Echocardiography Jeff Grullon MD Start: 04-23-2014 End: 07-06-2014 Device Interrogation Jeff Grullon MD Start: 04-23-2014 End: 07-06-2014 Echocardiography Jeff Grullon MD Start: 04-23-2014 End: 07-06-2014 Follow Up Appt 3 months Jeff Grullon MD Start: 04-23-2014 End: 04-23-2014 Interrogation eval f2f implantable cv mntr sys Jeff Grullon MD Start: 04-23-2014 End: 07-06-2014 MMM Jeff Grullon MD Start: 04-23-2014 End: 04-24-2014 Pacer Clinic Jeff Grullon MD Start: 04-23-2014 End: 04-23-2014 Program eval implantable in prsn multi ld pacer Jeff Grullon MD Start: 03-24-2014 End: 03-24-2014 *Hepatic Function Panel Jeff Grullon MD Start: 02-24-2014 End: 02-24-2014 Lipid 1996 panel - Serum or Plasma Jeff Grullon MD Start: 12-08-2013 End: 12-09-2013 CBC W Auto Differential panel - Blood Jane Torres PA-C Work Phone: Start: 12-08-2013 End: 12-08-2013 Follow Up Appt 3 months Jeff Grullon MD Start: 12-08-2013 End: 12-08-2013 Follow Up Appt 4 months Jane Torres PA-C Work Phone: Start: 12-08-2013 End: 12-08-2013 Pacer Clinic Jeff Grullon MD Start: 12-08-2013 End: 12-08-2013 PFM Jane Torres PA-C Work Phone: Start: 12-08-2013 End: 12-08-2013 Program eval implantable in prsn multi ld pacer Jeff Grullon MD Start: 11-18-2013 End: 12-03-2013 *BMP Jeff Grullon MD Start: 09-15-2013 End: 11-10-2013 *Hepatic Function Panel Jeff Grullon MD Start: 09-15-2013 End: 11-10-2013 Lipid 1996 panel - Serum or Plasma Jeff Grullon MD Start: 09-11-2013 End: 09-24-2013 *BMP Jeff Grullon MD Start: 09-04-2013 End: 11-10-2013 Echocardiography Jeff Grullon MD Start: 09-04-2013 End: 11-10-2013 Follow Up Appt 3 months Jeff Grullon MD Start: 09-04-2013 End: 09-04-2013 MM Jeff Grullon MD Start: 09-04-2013 End: 11-10-2013 Pacer Clinic Jeff Grullon MD Start: 09-04-2013 End: 09-04-2013 Program eval implantable in prsn multi ld pacer Jeff Grullon MD Start: 08-15-2013 End: 11-10-2013 Follow Up Appt 1 month Jeff Grullon MD Start: 08-15-2013 End: 08-15-2013 Nurse, Teaching, Wound Check (no charge) Jeff Grullon MD Start: 08-15-2013 End: 11-10-2013 Pacer Clinic Jeff Grullon MD Start: 06-09-2013 End: 06-09-2013 *Hepatic Function Panel Jeff Grullon MD Start: 06-09-2013 End: 06-09-2013 Lipid 1996 panel - Serum or Plasma Jeff Grullon MD Start: 06-03-2013 End: 06-09-2013 *Hepatic Function Panel Jeff Grullon MD Start: 05-13-2013 End: 11-10-2013 *BMP Jane Torres PA-C Work Phone: Start: 05-12-2013 End: 05-13-2013 *BMP Jane Torres PA-C Work Phone: Start: 05-12-2013 End: 05-13-2013 *CBC with Differential Jane Torres PA-C Work Phone: Start: 05-12-2013 End: 11-10-2013 Echocardiography Jane Torres PA-C Work Phone: Start: 05-12-2013 End: 05-13-2013 Natriuretic peptide B [Mass/volume] in Blood Jane Torres PA-C Work Phone: Start: 05-08-2013 End: 11-10-2013 Follow Up Appt 3 months Mk Moran Start: 05-08-2013 End: 05-08-2013 Follow Up Appt Other Jane Torres PA-C Work Phone: Start: 05-08-2013 End: 11-10-2013 Pacer Loli Flores MD Start: 05-08-2013 End: 05-08-2013 Program eval implantable in persn dual ld pacedanilo Flores MD Start: 04-24-2013 End: 05-06-2013 *BMP Jeff Grullon MD Start: 04-24-2013 End: 05-08-2013 *Hepatic Function Panel Jeff Grullon MD Start: 04-24-2013 End: 05-08-2013 Follow Up Appt 3 months Jeff Grullon MD Start: 04-24-2013 End: 05-08-2013 Lipid 1996 panel - Serum or Plasma Jeff Grullon MD Start: 04-24-2013 End: 05-08-2013 PFM Jeff Grullon MD Start: 01-21-2013 End: 03-18-2013 *BMP Oswaldo Ken MD Start: 01-21-2013 End: 03-18-2013 *CBC with Differential Oswaldo Ken MD Start: 01-21-2013 End: 01-21-2013 Follow Up Appt 3 months Oswaldo Ken MD Start: 01-21-2013 End: 03-18-2013 Magnesium [Mass/volume] in Serum or Plasma Oswaldo Ken MD Start: 01-21-2013 End: 03-18-2013 Thyrotropin [Units/volume] in Serum or Plasma Oswaldo Ken MD Start: 01-21-2013 End: 03-18-2013 Thyroxine (T4) [Mass/volume] in Serum or Plasma Oswaldo Ken MD Start: 10-24-2012 End: 01-01-2013 *BMP Oswaldo Ken MD Start: 10-24-2012 End: 10-30-2012 Echocardiography Oswaldo Ken MD Start: 10-24-2012 End: 10-24-2012 Follow Up Appt 3 months Oswaldo Ken MD Start: 10-24-2012 End: 01-01-2013 Magnesium [Mass/volume] in Serum or Plasma Oswaldo Ken MD Start: 10-24-2012 End: 01-01-2013 Thyrotropin [Units/volume] in Serum or Plasma Oswaldo Ken MD Start: 10-24-2012 End: 01-01-2013 Thyroxine (T4) [Mass/volume] in Serum or Plasma Oswaldo Ken MD Start: 09-25-2012 End: 10-07-2012 *Hepatic Function Panel Oswaldo Ken MD Start: 09-25-2012 End: 10-07-2012 Lipid 1996 panel - Serum or Plasma Marcie Ken MD Start: 07-04-2012 End: 07-04-2012 Follow Up Appt 4 months Oswaldo Ken MD Start: 06-17-2012 End: 06-17-2012 *BMP Oswaldo Ken MD Start: 06-17-2012 End: 06-17-2012 *Hepatic Function Panel Oswaldo Ken MD Start: 06-17-2012 End: 06-17-2012 Lipid 1996 panel - Serum or Plasma Marcie Ken MD Start: 06-17-2012 End: 06-17-2012 Magnesium [Mass/volume] in Serum or Plasma Oswaldo Ken MD Start: 02-26-2012 End: 02-26-2012 Follow Up Appt 4 months Oswaldo Ken MD Start: 12-12-2011 End: 12-12-2011 *Hepatic Function Panel Ally Arce RN Start: 12-12-2011 End: 12-12-2011 Lipid 1996 panel - Serum or Plasma Ally Arce RN Start: 12-11-2011 End: 12-12-2011 *BMP Oswaldo Ken MD Start: 12-11-2011 End: 12-12-2011 INR in Platelet poor plasma by Coagulation assay Oswaldo Ken MD Start: 11-23-2011 End: 11-23-2011 Follow Up Appt 3 months Ally Arce RN Start: 10-06-2011 End: 10-06-2011 Ecg routine ecg w/least 12 lds w/i&r Oswaldo Ken MD Start: 10-06-2011 End: 10-06-2011 Follow Up Appt Other Oswaldo Ken MD Measurement of occul t blood in stool specimen using immunoassay Dr. Vinny Atkinson Work Phone: Measurement of occul t blood in stool specimen using immunoassay Dr. Vinny Atkinson Work Phone: Measurement of occul t blood in stool specimen using immunoassay Dr. Vinny Atkinson Work Phone: Stool Occult Blood (SANDRA) Dr. Vinny Atkinson Work Phone: Plan of Treatment Date Care Activity Detail Author Start: 07-24-2028 Tetanus vaccination [facility] Start: 02-04-2028 Lipid panel LIPID SCREENING [facility] Start: 05-20-2026 Fasting lipid profile LIPID SCREENING [facility] Start: 05-20-2026 Lipid panel LIPID SCREENING [facility] Start: 02-16-2026 Screening for malignant neoplasm of colon [facility] Start: 11-18-2025 End: 11-18-2025 Patient encounter procedure 11/18/2025 11:00 AM EST Office Visit [facility] [address] [place] [address] Kelby Chance, BUSINESS SERVICES SPECIALIST SALES-CUSTOMER ASSISTANT [address] [place] [address] [facility] Start: 10-16-2025 End: 04-15-2026 US Abdomen RUQ US ABDOMEN RUQ/LIVER/GB Imaging Routine Other cirrhosis of liver Expected: 10/16/2025 (Approximate), Expires: 04/15/2026 [facility] Comment on above: Expected: 10/16/2025 (Approximate), Expi res: 04/15/2026 Start: 06-24-2025 End: 06-24-2025 Patient encounter procedure 06/24/2025 1:30 PM EDT Office Visit [facility]enterology [facility] [address] [place] [id number] Vaishnavi Fry, DO [address] [place] [address] [facility] Start: 06-03-2025 End: 06-03-2025 Patient encounter procedure 06/03/2025 11:30 AM EDT Office Visit [facility] [address] [place] [address] Vaishnavi Fry, DO [address] [place] [address] [facility]ology [facility] Start: 05-27-2025 [facility] Start: 04-29-2025 Walking distance 6 minutes [facility] Start: 04-18-2025 [facility] Start: 04-16-2025 End: 04-16-2026 AFP TUMOR MARKER AFP TUMOR MARKER Lab Routine Other cirrhosis of liver Expected: 04/16/2025 (Approximate), Expires: 04/16/2026 [facility] Comment on above: Expected: 04/16/2025 (Approximate), Expi res: 04/16/2026 Start: 04-15-2025 End: 04-15-2025 ambulatory [facility] Start: 04-08-2025 Measurement of respiratory function [facility] Start: 03-23-2025 Computed tomography of abdomen and pelvis with contrast [facility] Start: 03-23-2025 CT Abdomen and Pelvis W contrast IV [facility] Start: 02-13-2025 End: 02-13-2025 [facility] Start: 02-12-2025 End: 02-12-2025 [facility] Start: 02-03-2025 COVID-19 VACCINE (6 - Pfizer risk season) COVID-19 VACCINE (6 - Pfizer risk season) [facility] Start: 12-29-2024 End: 10-22-2025 US Abdomen RUQ US ABDOMEN RUQ/LIVER/GB Imaging Routine Other cirrhosis of liver Expected: 12/29/2024 (Approximate), Expires: 10/22/2025 [facility] Comment on above: Expected: 12/29/2024 (Approximate), Expi res: 10/22/2025 Start: 12-17-2024 [facility] Start: 12-16-2024 [facility] Start: 12-16-2024 [facility] Start: 10-22-2024 End: 10-22-2025 AFP TUMOR MARKER [facility] Comment on above: Expected: 10/22/2024 (Approximate), Expi res: 10/22/2025 Start: 10-22-2024 End: 10-22-2024 Patient encounter procedure 10/22/2024 11:00 AM EST Office Visit [facility] [address] [place] [phone] Kelby Chance, BUSINESS SERVICES SPECIALIST SALES-CUSTOMER ASSISTANT [address] [place] [address] [facility] Start: 07-17-2024 End: 04-16-2025 US Abdomen RUQ US ABDOMEN RUQ/LIVER/GB Imaging Routine Other cirrhosis of liver Expected: 07/17/2024 (Approximate), Expires: 04/16/2025 [facility] Comment on above: Expected: 07/17/2024 (Approximate), Expi res: 04/16/2025 Start: 04-16-2024 End: 04-16-2024 Patient encounter procedure 04/16/2024 10:30 AM EDT Office Visit [facility]ology [facility] [address] [place] [address] Vaishnavi Fry, [address] [place], [place] [id number] [facility] Start: 04-02-2024 End: 04-02-2024 Admission to same day surgery center 04/02/2024 9:45 AM EDT - 04/02/2024 11:00 AM EDT Surgery Cardiovascular Imaging [facility] [address] [place] [phone] Rick Stuart All [address] [place] [address] ICD Generator Changeout Cardiovascular Imaging Lab [facility] Comment on above: ICD Generator Changeout Start: 04-02-2024 Subsequent hospital visit by physician 04/02/2024 9:45 AM EDT Hospital Encounter [facility]iology [facility] [address] [place] [address] Ronnie Ferrari MD [address] [place] [address] SSS (sick sinus syndrome) [facility] Comment on above: SSS (sick sinus syndrome) Start: 02-08-2024 Prostate specific antigen measurement PROSTATE CANCER SCREENING DISCUSSION [facility] Start: 01-18-2024 End: 12-05-2024 US Abdomen RUQ US ABDOMEN RUQ/LIVER/GB Imaging Routine Other cirrhosis of liver Cirrhosis of liver without ascites, unspecified hepatic cirrhosis type Frailty Expected: 01/18/2024 (Approximate), Expires: 12/05/2024 [facility] Comment on above: Expected: 01/18/2024 (Approximate), Expi res: 12/05/2024 Start: 12-05-2023 End: 12-05-2023 Patient encounter procedure 12/05/2023 10:00 AM EST Office Visit [facility] [address] [place] [phone] Kelby Chance, BUSINESS SERVICES SPECIALIST SALES-CUSTOMER ASSISTANT [address] [place] [address] [facility] Start: 12-04-2023 Zoster vaccine hzv live for subcutaneous use ZOSTER (SHINGLES) VACCINE (2 of 2) [facility] Start: 07-20-2023 COVID-19 VACCINE ( season) COVID-19 VACCINE ( season) [facility] Start: 07-20-2023 End: 07-12-2024 CT Abdomen WO and W contrast IV CT ABDOMEN WITH AND WITHOUT CONTRAST Imaging Routine Other cirrhosis of liver Expected: 07/20/2023 (Approximate), Expires: 07/12/2024 [facility] Comment on above: Expected: 07/20/2023 (Approximate), Expi res: 07/12/2024 Start: 07-20-2023 Influenza vaccination INFLUENZA VACCINE (#1) [facility] Start: 05-08-2023 End: 05-08-2023 Patient encounter procedure 05/08/2023 Office Visit Gastroenterology Vaishnavi Fry, [address] [place] [address] Gastroenterology and Hepatology [facility] Start: 03-29-2023 [facility] Start: 03-29-2023 Plain chest X-ray Chest 1 View (Portable) [facility] Start: 03-29-2023 XR Chest Single view [facility] Start: 03-28-2023 End: 03-28-2024 Bacteria identified in Urine by Culture [facility] Comment on above: Expected: 03/28/2023, Expires: Start: 01-19-2023 Patient discharge [facility] Start: 01-18-2023 Application of intermittent pneumatic compression device [facility] Start: 01-18-2023 Administration of blood product [facility] Start: 01-17-2023 Following clinical pathway protocol [facility] Start: 01-17-2023 Assessment of risk of venous thromboembolism [facility] Start: 01-17-2023 Insertion of catheter into peripheral vein [facility] Start: 01-17-2023 Oxygen therapy [facility] Start: 01-17-2023 Providing care according to standard [facility] Start: 01-17-2023 Provision of activity privileges [facility] Start: 01-17-2023 Referral to gastroenterology service [facility] Start: 01-17-2023 Referral to salesperson [employer] [facility] Start: 01-17-2023 [facility] Start: 01-17-2023 Verification routine [facility] Start: 01-17-2023 Admission procedure [facility] Start: 01-17-2023 Administration of blood product [facility] Start: 01-17-2023 Transfusion of red blood cells [facility] Start: 01-17-2023 Leukocyte reduced red blood cells [facility] Start: 01-15-2023 End: 01-15-2024 AFP TUMOR MARKER AFP TUMOR MARKER Lab Routine Cirrhosis of liver without ascites, unspecified hepatic cirrhosis type Expected: 01/15/2023 (Approximate), Expires: 01/15/2024 [facility] Comment on above: Expected: 01/15/2023 (Approximate), Expi res: 01/15/2024 Start: 01-15-2023 End: 01-15-2024 CHEM 6 (LYTES, BUN CREA) CHEM 6 (LYTES, BUN CREA) Lab Routine Cirrhosis of liver without ascites, unspecified hepatic cirrhosis type Expected: 01/15/2023, Expires: 01/15/2024 [facility] Comment on above: Expected: 01/15/2023, Expires: Start: 01-15-2023 End: 01-15-2024 Complete blood count with white cell differential, automated CBC, EDIF, PLATELET Lab Routine Cirrhosis of liver without ascites, unspecified hepatic cirrhosis type Expected: 01/15/2023 (Approximate), Expires: 01/15/2024 [facility] Comment on above: Expected: 01/15/2023 (Approximate), Expi res: 01/15/2024 Start: 01-15-2023 End: 01-15-2024 Hepatic function 2000 panel - Serum or Plasma HEPATIC FUNCTION PANEL Lab Routine Cirrhosis of liver without ascites, unspecified hepatic cirrhosis type Expected: 01/15/2023 (Approximate), Expires: 01/15/2024 [facility] Comment on above: Expected: 01/15/2023 (Approximate), Expi res: 01/15/2024 Start: 01-15-2023 End: 01-15-2024 PROTIME-INR PROTIME-INR Lab Routine Cirrhosis of liver without ascites, unspecified hepatic cirrhosis type Expected: 01/15/2023 (Approximate), Expires: 01/15/2024 [facility] Comment on above: Expected: 01/15/2023 (Approximate), Expi res: 01/15/2024 Start: 01-15-2023 End: 01-15-2024 US.doppler Abdominal vessels US ABDOMEN LIVER DOPPLER Imaging Routine Cirrhosis of liver without ascites, unspecified hepatic cirrhosis type Expected: 01/15/2023, Expires: 01/15/2024 [facility] Comment on above: Expected: 01/15/2023, Expires: Start: 01-15-2023 End: 01-15-2023 Patient encounter procedure 01/15/2023 Office Visit Gastroenterology Kelby Chance, BUSINESS SERVICES SPECIALIST SALES-CUSTOMER ASSISTANT [address] [place] [address] Gastroenterology and Hepatology [facility] Start: 10-24-2022 Pneumococcal vaccination [facility] Start: 08-26-2022 Thyroid stimulating hormone measurement [facility] Start: 08-19-2022 End: 07-14-2023 US Abdomen RUQ US ABDOMEN RUQ/LIVER/GB Imaging Routine Cirrhosis of liver without ascites, unspecified hepatic cirrhosis type Expected: 08/19/2022, Expires: 07/14/2023 [facility] Comment on above: Expected: 08/19/2022, Expires: Start: 07-20-2022 Influenza vaccination INFLUENZA VACCINE (#1) [facility] Start: 07-18-2022 Patient discharge [facility] Work Phone: Start: 07-18-2022 [facility] Work Phone: Start: 07-17-2022 Referral to occupational therapist [facility] Work Phone: Start: 07-17-2022 Dialysis procedure [facility] Work Phone: Start: 07-17-2022 Prothrombin time [facility] Work Phone: Start: 07-17-2022 Administration of blood product [facility] Work Phone: Start: 07-17-2022 [facility] Work Phone: Start: 07-16-2022 Referral to salesperson [employer] [facility] Work Phone: Start: 07-16-2022 Prothrombin time [facility] Work Phone: Start: 07-15-2022 Following clinical pathway protocol [facility] Work Phone: Start: 07-15-2022 Assessment of risk of venous thromboembolism [facility] Work Phone: Start: 07-15-2022 Catheterization of vein [facility] Work Phone: Start: 07-15-2022 Incentive spirometry [facility] Work Phone: Start: 07-15-2022 Insertion of catheter into peripheral vein [facility] Work Phone: Start: 07-15-2022 Measuring intake and output [facility] Work Phone: Start: 07-15-2022 Providing care according to standard [facility] Work Phone: Start: 07-15-2022 Provision of activity privileges [facility] Work Phone: Start: 07-15-2022 Referral to gastroenterology service [facility] Work Phone: Start: 07-15-2022 Referral to service [facility] Work Phone: Start: 07-15-2022 [facility] Work Phone: Start: 07-15-2022 Admission procedure [facility] Work Phone: Start: 07-15-2022 Administration of blood product [facility] Work Phone: Start: 07-15-2022 End: 07-16-2022 [facility] Work Phone: Start: 04-20-2022 End: 04-20-2022 Patient encounter procedure 04/20/2022 Office Visit Gastroenterology Vaishnavi Fry, DO [address] [place] [address] Gastroenterology and Hepatology [facility] Start: 04-08-2022 Control nasal hemorrhage anterior simple CONTROL OF NOSEBLEED [facility] Work Phone: Start: 04-06-2022 Patient discharge [facility] Work Phone: Start: 04-04-2022 Administration of blood product [facility] Work Phone: Start: 04-04-2022 Dialysis procedure [facility] Work Phone: Start: 04-04-2022 Following clinical pathway protocol [facility] Work Phone: Start: 04-04-2022 Referral to ear, nose and throat service [facility] Work Phone: Start: 04-04-2022 Referral to salesperson [employer] [facility] Work Phone: Start: 04-04-2022 Referral to gastroenterology service [facility] Work Phone: Start: 04-04-2022 Catheterization of vein [facility] Work Phone: Start: 04-04-2022 Incentive spirometry [facility] Work Phone: Start: 04-04-2022 Admission procedure [facility] Work Phone: Start: 04-04-2022 Assessment of risk of venous thromboembolism [facility] Work Phone: Start: 04-04-2022 Insertion of catheter into peripheral vein [facility] Work Phone: Start: 04-04-2022 Measuring intake and output [facility] Work Phone: Start: 04-04-2022 Providing care according to standard [facility] Work Phone: Start: 04-04-2022 End: 04-04-2022 [facility] Work Phone: Start: 04-04-2022 Ambulation without limitation [facility] Work Phone: Start: 04-04-2022 Transfusion of red blood cells [facility] Work Phone: Start: 12-23-2021 COVID-19 VACCINE (4 - Booster for Pfizer series) COVID-19 VACCINE (4 - Booster for Pfizer series) [facility] Start: 08-06-2021 Screening for malignant neoplasm of colon COLORECTAL CANCER SCREENING DISCUSSION [facility] Start: 09-12-2018 Administration of blood product [facility] Start: 09-12-2018 [facility] Start: 08-14-2018 Administration of blood product [facility] Start: 08-14-2018 [facility] Start: 07-17-2018 Administration of blood product [facility] Start: 07-17-2018 [facility] Start: 01-18-2018 End: 01-18-2018 Appointment Appointment [facility] Work Phone: Start: 12-04-2017 End: 12-04-2017 Appointment Appointment [facility] Work Phone: Start: 10-08-2017 End: 10-08-2017 INR Coag RelTime (PPP) *PT/INR - Standing Order [facility] Work Phone: Start: 08-28-2017 End: 08-28-2017 Follow Up Appt 3 months Follow Up Appt 3 months [facility] Work Phone: Start: 08-28-2017 End: 08-28-2017 Pacer Clinic [facility] Work Phone: Start: 08-21-2017 End: 02-19-2017 *CBC w/Diff - oncology ONLY *CBC w/Diff - oncology ONLY [facility] Work Phone: Start: 08-21-2017 End: 02-19-2017 *CMP Complete Metabolic Panel *CMP Complete Metabolic Panel [facility] Work Phone: Start: 08-21-2017 End: 02-19-2017 Lactate dehydrogenase (LDH) *LDH -LDH (Lactate Dehydrogenase) [facility] Work Phone: Start: 07-16-2017 End: 07-16-2017 Follow Up Appt 6 months Follow Up Appt 6 months [facility] Work Phone: Start: 07-16-2017 End: 07-16-2017 MMM MMM [facility] Work Phone: Start: 05-04-2017 End: 06-26-2017 Follow Up Appt 3 months Follow Up Appt 3 months [employer] [facility] Work Phone: Start: 05-04-2017 End: 06-26-2017 Pacer Clinic [facility] Work Phone: Start: 05-02-2017 End: 05-02-2017 *BMP *BMP [facility] Work Phone: Start: 05-02-2017 End: 05-02-2017 *CBC with Differential *CBC with Differential [facility] Work Phone: Start: 05-02-2017 End: 05-02-2017 BNP *Brain Natriuretic Peptide BNP [facility] Work Phone: Start: 05-02-2017 End: 05-02-2017 Chest x-ray X-Ray, Chest, PA & Lateral [facility] Work Phone: Start: 05-02-2017 End: 06-26-2017 Follow Up Appt Other Follow Up Appt Other [facility] Work Phone: Start: 05-02-2017 End: 06-26-2017 PFM PFM [facility] Work Phone: Start: 05-02-2017 End: 05-02-2017 Thyroid stimulating hormone (TSH) *TSH [facility] Work Phone: Start: 05-02-2017 End: 05-02-2017 Thyroxine (T4) *T4 (Total) [facility] Work Phone: Start: 05-01-2017 Colonoscopy COLORECTAL CANCER SCREENING DISCUSSION [facility] Start: 05-01-2017 Screening for malignant neoplasm of colon COLORECTAL CANCER SCREENING DISCUSSION [facility] Start: 02-28-2017 End: 03-06-2017 INR Coag RelTime (PPP) *PT/INR - Standing Order [facility] Work Phone: Start: 02-19-2017 End: 02-22-2017 *CBC w/Diff - oncology ONLY *CBC w/Diff - oncology ONLY [facility] Work Phone: Start: 02-19-2017 End: 02-22-2017 *CMP Complete Metabolic Panel *CMP Complete Metabolic Panel [facility] Work Phone: Start: 02-19-2017 End: 02-22-2017 Carcinoembryonic antigen *CEA (Carcinoembryonic Ag) [facility] Work Phone: Start: 02-19-2017 End: 02-19-2017 Lactate dehydrogenase (LDH) *LDH -LDH (Lactate Dehydrogenase) [facility] Work Phone: Start: 02-19-2017 End: 02-19-2017 Magnesium *Magnesium [facility] Work Phone: Start: 02-19-2017 End: 02-22-2017 Office outpatient visit 15 minutes [id number] Ofc Vst, Est Level III [facility] Work Phone: Start: 02-19-2017 End: 02-19-2017 Urate *Uric Acid Blood [facility] Work Phone: Start: 01-23-2017 End: 04-17-2017 Follow Up Appt 3 months Follow Up Appt 3 months [facility] Work Phone: Start: 01-23-2017 End: 04-17-2017 Pacer Clinic Pacer Clinic [facility] Work Phone: Start: 12-18-2016 End: 12-18-2016 Follow Up Appt 6 months Follow Up Appt 6 months [facility] Work Phone: Start: 12-18-2016 End: 12-18-2016 PFM PFM [facility] Work Phone: Start: 11-29-2016 End: 09-07-2016 Echocardiography Echocardiogram (complete) [facility] Work Phone: Start: 10-17-2016 End: 04-10-2017 Follow Up Appt 3 months Follow Up Appt 3 months [facility] Work Phone: Start: 10-17-2016 End: 04-10-2017 Pacer Clinic Pacer Clinic [facility] Work Phone: Start: 09-06-2016 End: 09-11-2016 C reactive protein (hsCRP) *CRP - C-Reative Protein [employer] Work Phone: Start: 09-06-2016 End: 09-11-2016 Erythrocyte sedimentation rate *Sedimentation Rate (ESR) [employer] Work Phone: Start: 09-04-2016 End: 06-05-2016 *CBC with Differential *CBC with Differential [employer] Work Phone: Start: 09-04-2016 End: 06-05-2016 *CMP Complete Metabolic Panel *CMP Complete Metabolic Panel [facility] Work Phone: Start: 09-04-2016 End: 06-05-2016 Lactate dehydrogenase (LDH) *LDH -LDH (Lactate Dehydrogenase) [facility] Work Phone: Start: 09-04-2016 End: 06-05-2016 Urate *Uric Acid Blood [facility] Work Phone: Start: 08-28-2016 End: 08-28-2016 Follow Up Appt 3 months Follow Up Appt 3 months [facility] Work Phone: Start: 08-28-2016 End: 08-28-2016 Follow Up Appt Other Follow Up Appt Other [facility] Work Phone: Start: 08-28-2016 End: 08-28-2016 PFM PFM [facility] Work Phone: Start: 07-13-2016 End: 07-13-2016 *BMP *BMP [facility] Work Phone: Start: 07-13-2016 End: 07-13-2016 INR Coag RelTime (PPP) *PT/INR [facility] Work Phone: Start: 07-05-2016 End: 08-28-2016 Follow Up Appt 3 months Follow Up Appt 3 months [facility] Work Phone: Start: 07-05-2016 End: 08-28-2016 Pacer Clinic Pacer Clinic [facility] Work Phone: Start: 06-29-2016 End: 06-29-2016 Echocardiography Echocardiogram (complete) [facility] Work Phone: Start: 06-29-2016 End: 06-29-2016 Follow Up Appt 6 weeks Follow Up Appt 6 weeks [facility] Work Phone: Start: 06-29-2016 End: 06-29-2016 MMM MMM [facility] Work Phone: Start: 05-25-2016 End: 11-25-2015 *CBC with Differential *CBC with Differential [facility] Work Phone: Start: 05-25-2016 End: 11-25-2015 *CMP Complete Metabolic Panel *CMP Complete Metabolic Panel [facility] Work Phone: Start: 05-25-2016 End: 11-25-2015 Lactate dehydrogenase (LDH) *LDH -LDH (Lactate Dehydrogenase) [facility] Work Phone: Start: 05-25-2016 End: 11-25-2015 Urate *Uric Acid Blood [facility] Work Phone: Start: 04-10-2016 End: 10-16-2016 Follow Up Appt 2 weeks Follow Up Appt 2 weeks [facility] Work Phone: Start: 03-09-2016 End: 04-10-2017 *Hepatic Function Panel *Hepatic Function Panel [facility] Work Phone: Start: 03-09-2016 End: 04-10-2017 Lipid panel [AGGREGATE] *Lipid Profile CC PCP [facility] Work Phone: Start: 01-26-2016 End: 03-01-2016 Follow Up Appt Other Follow Up Appt Other [facility] Work Phone: Start: 01-04-2016 End: 01-05-2016 Surgery Referral Surgery Referral Kaylin Kyle MD, [facility], [address], [address], [place], [address] [facility] Work Phone: Start: 12-15-2015 End: 06-29-2016 Follow Up Appt 3 months Follow Up Appt 3 months [facility] Work Phone: Start: 12-15-2015 End: 06-29-2016 Pacer Clinic Pacer Clinic [facility] Work Phone: Start: 12-03-2015 End: 12-09-2015 *Hepatic Function Panel *Hepatic Function Panel [facility] Work Phone: Start: 12-03-2015 End: 12-09-2015 Lipid panel [AGGREGATE] *Lipid Profile CC PCP [facility] Work Phone: Start: 09-13-2015 End: 09-21-2015 *BMP *BMP [facility] Work Phone: Start: 09-13-2015 End: 09-21-2015 *CBC with Differential *CBC with Differential [facility] Work Phone: Start: 09-13-2015 End: 06-29-2016 Follow Up Appt 3 months Follow Up Appt 3 months [facility] Work Phone: Start: 09-13-2015 End: 06-29-2016 Follow Up Appt 6 months Follow Up Appt 6 months [facility] Work Phone: Start: 09-13-2015 End: 06-29-2016 Pacer Clinic Pacer Clinic [facility] Work Phone: Start: 09-13-2015 End: 06-29-2016 PFM PFM [facility] Work Phone: Start: 06-03-2015 End: 06-03-2015 *Hepatic Function Panel *Hepatic Function Panel [facility] Work Phone: Start: 06-03-2015 End: 06-03-2015 Lipid panel [AGGREGATE] *Lipid Profile CC PCP [facility] Work Phone: Start: 05-14-2015 End: 09-01-2015 Follow Up Appt 3 months Follow Up Appt 3 months [facility] Work Phone: Start: 05-14-2015 End: 09-01-2015 Pacer Clinic Pacer Clinic [facility] Work Phone: Start: 03-03-2015 End: 03-04-2015 *BMP *BMP [facility] Work Phone: Start: 02-26-2015 End: 03-01-2015 Follow Up Appt 6 months Follow Up Appt 6 months [facility] Work Phone: Start: 02-26-2015 End: 03-01-2015 MMM MMM [facility] Work Phone: Start: 02-17-2015 End: 02-16-2015 *Hepatic Function Panel *Hepatic Function Panel [facility] Work Phone: Start: 02-17-2015 End: 02-16-2015 Lipid panel [AGGREGATE] *Lipid Profile CC PCP [facility] Work Phone: Start: 02-08-2015 End: 03-01-2015 Follow Up Appt 3 months Follow Up Appt 3 months [facility] Work Phone: Start: 02-08-2015 End: 03-01-2015 Pacer Clinic Pacer Clinic [facility] Work Phone: Start: 12-17-2014 End: 03-01-2015 INR Coag RelTime (PPP) *PT/INR - Standing Order [facility] Work Phone: Start: 10-29-2014 End: 11-16-2014 Follow Up BP Check Follow Up BP Check [facility] Work Phone: Start: 10-27-2014 End: 03-01-2015 Follow Up Appt 3 months Follow Up Appt 3 months [facility] Work Phone: Start: 10-27-2014 End: 03-01-2015 Pacer Clinic Pacer Clinic [facility] Work Phone: Start: 07-28-2014 End: 07-28-2014 Follow Up Appt 6 months Follow Up Appt 6 months [facility] Work Phone: Start: 07-28-2014 End: 07-28-2014 PFM PFM [facility] Work Phone: Start: 07-23-2014 End: 07-28-2014 Follow Up Appt 3 months Follow Up Appt 3 months [facility] Work Phone: Start: 07-23-2014 End: 07-28-2014 Pacer Clinic Pacer Clinic [facility] Work Phone: Start: 05-19-2014 End: 06-09-2014 Lipid panel [AGGREGATE] *Lipid Profile CC PCP [facility] Work Phone: Start: 05-15-2014 End: 05-15-2014 *Hepatic Function Panel *Hepatic Function Panel [facility] Work Phone: Start: 04-29-2014 End: 04-24-2014 Echocardiography Echocardiogram (complete) [facility] Work Phone: Start: 04-23-2014 End: 07-06-2014 Device Interrogation Device Interrogation [facility] Work Phone: Start: 04-23-2014 End: 04-24-2014 Echocardiography Echocardiogram (complete) [facility] Work Phone: Start: 04-23-2014 End: 07-06-2014 Follow Up Appt 3 months Follow Up Appt 3 months [facility] Work Phone: Start: 04-23-2014 End: 07-06-2014 MMM MMM [facility] Work Phone: Start: 04-23-2014 End: 04-24-2014 Pacer Clinic Pacer Clinic [facility] Work Phone: Start: 03-30-2014 End: 03-24-2014 *Hepatic Function Panel *Hepatic Function Panel [facility] Work Phone: Start: 03-19-2014 End: 02-24-2014 Lipid panel [AGGREGATE] *Lipid Profile CC PCP [facility] Work Phone: Start: 12-08-2013 End: 12-09-2013 CBC W Auto Differential panel - Blood *CBC without Diff [facility] Work Phone: Start: 12-08-2013 End: 12-08-2013 Follow Up Appt 3 months Follow Up Appt 3 months [facility] Work Phone: Start: 12-08-2013 End: 12-08-2013 Follow Up Appt 4 months Follow Up Appt 4 months [facility] Work Phone: Start: 12-08-2013 End: 12-08-2013 Pacer Clinic Pacer Clinic [facility] Work Phone: Start: 12-08-2013 End: 12-08-2013 PFM PFM [facility] Work Phone: Start: 11-18-2013 End: 12-03-2013 *BMP *BMP [facility] Work Phone: Start: 09-15-2013 End: 11-10-2013 *Hepatic Function Panel *Hepatic Function Panel [facility] Work Phone: Start: 09-15-2013 End: 11-10-2013 Lipid panel [AGGREGATE] *Lipid Profile CC PCP [facility] Work Phone: Start: 09-11-2013 End: 09-24-2013 *BMP *BMP [facility] Work Phone: Start: 09-04-2013 End: 09-04-2013 Echocardiography Echocardiogram (limited) [facility] Work Phone: Start: 09-04-2013 End: 11-10-2013 Follow Up Appt 3 months Follow Up Appt 3 months [facility] Work Phone: Start: 09-04-2013 End: 09-04-2013 MMM MMM [facility] Work Phone: Start: 09-04-2013 End: 11-10-2013 Pacer Clinic Pacer Clinic [facility] Work Phone: Start: 08-15-2013 End: 11-10-2013 Follow Up Appt 1 month Follow Up Appt 1 month [facility] Work Phone: Start: 08-15-2013 End: 11-10-2013 Pacer Clinic Pacer Clinic [facility] Work Phone: Start: 07-23-2013 End: 06-09-2013 *Hepatic Function Panel *Hepatic Function Panel [facility] Work Phone: Start: 07-23-2013 End: 06-09-2013 Lipid panel [AGGREGATE] *Lipid Profile CC PCP [facility] Work Phone: Start: 06-03-2013 End: 06-09-2013 *Hepatic Function Panel *Hepatic Function Panel [facility] Work Phone: Start: 05-13-2013 End: 11-10-2013 *BMP *BMP [facility] Work Phone: Start: 05-12-2013 End: 05-13-2013 *BMP *BMP [facility] Work Phone: Start: 05-12-2013 End: 05-13-2013 *CBC with Differential *CBC with Differential [facility] Work Phone: Start: 05-12-2013 End: 05-13-2013 BNP *Brain Natriuretic Peptide BNP [facility] Work Phone: Start: 05-12-2013 End: 05-12-2013 Echocardiography Echocardiogram (complete) [facility] Work Phone: Start: 05-08-2013 End: 11-10-2013 Follow Up Appt 3 months Follow Up Appt 3 months [facility] Work Phone: Start: 05-08-2013 End: 05-08-2013 Follow Up Appt Other Follow Up Appt Other [facility] Work Phone: Start: 05-08-2013 End: 11-10-2013 Pacer Clinic Pacer Clinic [facility] Work Phone: Start: 04-24-2013 End: 05-06-2013 *BMP *BMP [facility] Work Phone: Start: 04-24-2013 End: 05-08-2013 *Hepatic Function Panel *Hepatic Function Panel [facility] Work Phone: Start: 04-24-2013 End: 05-08-2013 Follow Up Appt 3 months Follow Up Appt 3 months [facility] Work Phone: Start: 04-24-2013 End: 05-08-2013 Lipid panel [AGGREGATE] *Lipid Profile CC PCP [facility] Work Phone: Start: 04-24-2013 End: 05-08-2013 PFM PFM [facility] Work Phone: Start: 01-21-2013 End: 03-18-2013 *BMP *BMP [facility] Work Phone: Start: 01-21-2013 End: 03-18-2013 *CBC with Differential *CBC with Differential [facility] Work Phone: Start: 01-21-2013 End: 01-21-2013 Follow Up Appt 3 months Follow Up Appt 3 months [facility] Work Phone: Start: 01-21-2013 End: 03-18-2013 Magnesium *Magnesium [facility] Work Phone: Start: 01-21-2013 End: 03-18-2013 Thyroid stimulating hormone (TSH) *TSH [facility] Work Phone: Start: 01-21-2013 End: 03-18-2013 Thyroxine (T4) *T4 (Total) [facility] Work Phone: Start: 10-24-2012 End: 01-01-2013 *BMP *BMP [facility] Work Phone: Start: 10-24-2012 End: 10-24-2012 Echocardiography Echocardiogram (complete) [facility] Work Phone: Start: 10-24-2012 End: 10-24-2012 Follow Up Appt 3 months Follow Up Appt 3 months [facility] Work Phone: Start: 10-24-2012 End: 01-01-2013 Magnesium *Magnesium [facility] Work Phone: Start: 10-24-2012 End: 01-01-2013 Thyroid stimulating hormone (TSH) *TSH [facility] Work Phone: Start: 10-24-2012 End: 01-01-2013 Thyroxine (T4) *T4 (Total) [facility] Work Phone: Start: 09-25-2012 End: 10-07-2012 *Hepatic Function Panel *Hepatic Function Panel [facility] Work Phone: Start: 09-25-2012 End: 10-07-2012 Lipid panel [AGGREGATE] *Lipid Profile [facility] Work Phone: Start: 07-04-2012 End: 07-04-2012 Follow Up Appt 4 months Follow Up Appt 4 months [facility] Work Phone: Start: 06-26-2012 End: 06-17-2012 *BMP *BMP [facility] Work Phone: Start: 06-26-2012 End: 06-17-2012 *Hepatic Function Panel *Hepatic Function Panel [facility] Work Phone: Start: 06-26-2012 End: 06-17-2012 Lipid panel [AGGREGATE] *Lipid Profile [facility] Work Phone: Start: 06-26-2012 End: 06-17-2012 Magnesium *Magnesium [facility] Work Phone: Start: 05-22-2012 End: 12-12-2011 *Hepatic Function Panel *Hepatic Function Panel [facility] Work Phone: Start: 05-22-2012 End: 12-12-2011 Lipid panel [AGGREGATE] *Lipid Profile [facility] Work Phone: Start: 02-26-2012 End: 02-26-2012 Follow Up Appt 4 months Follow Up Appt 4 months [facility] Work Phone: Start: 12-11-2011 End: 12-12-2011 *BMP *BMP [facility] Work Phone: Start: 12-11-2011 End: 12-12-2011 INR Coag RelTime (PPP) *PT/INR [facility] Work Phone: Start: 11-23-2011 End: 11-23-2011 Follow Up Appt 3 months Follow Up Appt 3 months [facility] Work Phone: Start: 10-06-2011 End: 10-06-2011 Ecg routine ecg w/least 12 lds w/i&r EKG (In office) [facility] Work Phone: Start: 10-06-2011 End: 10-06-2011 Follow Up Appt Other Follow Up Appt Other [facility] Work Phone: Start: 1999 Prostate specific antigen measurement PROSTATE CANCER SCREENING DISCUSSION [facility] Start: 1999 Zoster vaccine hzv live for subcutaneous use ZOSTER (SHINGLES) VACCINE (1 of 2) [facility] Start: 02-28-1968 Third diphtheria, tetanus and acellular pertussis (DTaP) vaccination TDAP (ADULT) [facility] Start: 02-28-1968 Zoster vaccine hzv live for subcutaneous use ZOSTER (SHINGLES) VACCINE (1 of 2) [facility] Start: 1967 Tetanus vaccination TETANUS [facility] Start: 1954 COVID-19 VACCINE (#1) COVID-19 VACCINE (#1) [facility] Start: 1949 COVID-19 VACCINE (#1) COVID-19 VACCINE (#1) [facility] AFP TUMOR MARKER AFP TUMOR MARKE R Lab Routine Cirrhosis of liver without ascites, unspecified hepatic cirrhosis type Ordered: 07/14/2022 [facility] Comment on above: Ordered: 07/14/2022 AFP TUMOR MARKER AFP TUMOR MARKE R Lab Routine Other cirrhosis of liver Ordered: 04/16/2024 [facility] Comment on above: Ordered: 04/16/2024 Alanine aminotransfe rase [Enzymatic activity/volume] in Serum or Plasma [facility] Albumin [Mass/volume ] in Serum or Plasma [facility] Alkaline phosphatase [Enzymatic activity/volume] in Serum or Plasma [facility] Dxtkm-5-yyehshwqdgh. tumo r marker [Units/volume] in Serum or Plasma [facility] Anion gap in Serum o r Plasma [facility] End: 02-28-2025 Bacteria identified in Blood by Culture [facility] End: 03-03-2025 Bacteria identified in Blood by Culture [facility] End: 03-04-2025 Bacteria identified in Blood by Culture [facility] Bilirubin, total measurement [facility] BUN/Creatinine ratio [facility] Calcium [Mass/volume ] in Serum or Plasma [facility] CALCULI, URINARY (KI DNEY STONE) CALCULI, URINARY (KIDNEY STONE) Fluids Routine Urinary frequency 03/28/2023 10:56 AM EDT [facility] Carbon dioxide, tota l [Moles/volume] in Central venous blood [facility] CBC,PLATELETS CBC,PLATELETS La b Routine Cirrhosis of liver without ascites, unspecified hepatic cirrhosis type Ordered: 07/14/2022 [facility] Comment on above: Ordered: 07/14/2022 CHEM 6 (LYTES, BUN CREA) CHEM 6 (LYTES, BUN CREA) Lab Routine Cirrhosis of liver without ascites, unspecified hepatic cirrhosis type Ordered: 07/14/2022 [facility] Comment on above: Ordered: 07/14/2022 Creatinine [Mass/vol ume] in Serum or Plasma [facility] CT Abdomen and Pelvi s contrast [facility] Work Phone: CT Abdomen and Pelvi s contrast [facility] CT Chest WO contrast [facility] Work Phone: CT Chest WO contrast [facility] CT Chest WO contrast [facility] CYTOLOGY, NON-REPOSSESSOR CYTOLOGY, NON- REPOSSESSOR Cytology Routine Urinary frequency 03/28/2023 10:56 AM EDT [facility] Electrophysiology study EP PROCE DURE - EPS/ABLATION/DEVICE Electrophysiology Routine SSS (sick sinus syndrome) 04/02/2024 11:28 AM EDT [facility] Work Phone: Ferritin [Mass/volum e] in Serum or Plasma [facility] Glucose [Mass/volume ] in Serum or Plasma [facility] Hemoglobin [Mass/vol ume] in Blood [facility] Work Phone: Hepatic function 200 0 panel - Serum or Plasma HEPATIC FUNCTION PANEL Lab Routine Cirrhosis of liver without ascites, unspecified hepatic cirrhosis type Ordered: 07/14/2022 [facility] Comment on above: Ordered: 07/14/2022 Hepatic function 200 0 panel - Serum or Plasma HEPATIC FUNCTION PANEL Lab Routine Other cirrhosis of liver Ordered: 04/16/2024 [facility] Comment on above: Ordered: 04/16/2024 INR in Blood by Coagulation assay [facility] Work Phone: Iron [Mass/mass] in Unspecified specimen [facility] Iron saturation [Mas s Fraction] in Serum or Plasma [facility] Lactate dehydrogenas e measurement [facility] Measurement of renal function [facility] Patient Education [facility] [employer] Work Phone: Patient referral [facility] Work Phone: Potassium measurement [facility] Prothrombin time [facility] Work Phone: PT,INR,PTT PT,INR,PTT Lab R outine Cirrhosis of liver without ascites, unspecified hepatic cirrhosis type Ordered: 07/14/2022 [facility] Comment on above: Ordered: 07/14/2022 Radionuclide gastric emptying study [facility] Serum chloride measurement [facility] Sodium measurement [facility] Total iron binding capacity measurement [facility] Total protein measurement [facility] Urea nitrogen [Mass/volume] in Serum or Plasma [facility] Urine immunofixation [facility] End: 03-17-2022 US Abdomen RUQ [facility] Comment on above: 1 Occurrences starting 03/17/2022 until 03/17/2022 Walking distance 6 minutes [facility] Immunizations Immunization Date Immunization Notes Care Provider Frantz patel 10-09-2023 zoster vaccine, unspecified formulation Kelby Chance BUSINESS SERVICES SPECIALIST SALES-CUSTOMER ASSISTANT Work Phone: [facility] 08-22-2022 influenza virus vaccine, unspecified formulation Vaishnavi Sobotka DO Work Phone: [facility] 10-25-2021 influenza virus vaccine, unspecified formulation Vaishnavi Sobotka DO Work Phone: [facility] 10-24-2021 pneumococcal conjuga te vaccine, 13 valent Kelby Chance BUSINESS SERVICES SPECIALIST SALES-CUSTOMER ASSISTANT Work Phone: [facility] 09-19-[address] Vinny Atkinson Work Phone: [facility] 01-21-2021 Covid (Pfizer) Dr. Vinny guido Work Phone: [facility] 12-24-2020 Covid (Pfizer) Dr. Vinny guido Work Phone: [facility] 08-25-[address] Vinny Atkinson Work Phone: [facility] 07-20-2012 influenza virus vaccine, unspecified formulation Kelby Chance BUSINESS SERVICES SPECIALIST SALES-CUSTOMER ASSISTANT Work Phone: [facility] 08-16-2011 influenza virus vaccine, whole virus Kelby Chance BUSINESS SERVICES SPECIALIST SALES-CUSTOMER ASSISTANT Work Phone: [facility] Work Phone: Payers Date Payer Category Payer Self-pay [id number] 2015 Medicare [id number] 2013 Medicare [id number] 2013 Medicare [id number] 2011 Managed Care (unspecified) [id number] 2011 Unknown AARP AARP [id number] 2011-Present [address] [place] [address] [id number] 2011 Unknown [id number] 1950 Unknown [id number] 2.16.840.1.668873.3.579.2.7 32 1950 Unknown [id number] 2.16.840.1.497494.3.579.2.5 94 1949 Unknown [id number] 2.16.840.1.092342.3.579.2.5 94 1949 Unknown [id number] 2.16.840.1.757879.3.579.2.5 94 1949 Unknown [id number] 2.16.840.1.935509.3.579.2.5 94 1949 Unknown [id number] 2.16.840.1.555947.3.579.2.5 94 Unknown [id number] 2.16.840.1.093271.3.579.2.4 62 Unknown [id number] 2.16.840.1.519098.3.579.2.4 62 Unknown [id number] 2.16.840.1.763844.3.579.2.4 62 Unknown [id number] 2.16.840.1.920409.3.579.2.4 62 Unknown [id number] 2.16.840.1.338276.3.579.2.4 62 Unknown [id number] 2.16.840.1.925799.3.579.2.4 62 Unknown [id number] 2.16.840.1.463373.3.579.2.4 62 Unknown [id number] 2.16.840.1.738751.3.579.2.4 62 Unknown [id number] 2.16.840.1.253443.3.579.2.4 62 Unknown [id number] 2.16.840.1.406096.3.579.2.4 62 Unknown [id number] 2.16.840.1.601311.3.579.2.4 62 Unknown [id number] 2.16.840.1.656819.3.579.2.4 62 Unknown [id number] 2.16.840.1.616798.3.579.2.4 62 Unknown [id number] 2.16.840.1.831649.3.579.2.4 62 Unknown [id number] 2.16.840.1.472108.3.579.2.4 62 Unknown [id number] 2.16.840.1.777535.3.579.2.4 62 Unknown [id number] 2.16.840.1.472268.3.579.2.4 62 Unknown [id number] 2.16.840.1.372915.3.579.2.4 62 Unknown [id number] 2.16.840.1.366539.3.579.2.4 62 Unknown [id number] 2.16.840.1.976786.3.579.2.4 62 Unknown [id number] 2.16.840.1.632751.3.579.2.4 62 Unknown [id number] 2.16.840.1.066485.3.579.2.4 62 Unknown [id number] 2.16.840.1.112524.3.579.2.4 62 Unknown [id number] 2.16.840.1.262533.3.579.2.4 62 Unknown [id number] 2.16.840.1.246704.3.579.2.4 62 Unknown [id number] 2.16.840.1.039406.3.579.2.4 62 Unknown [id number] 2.16.840.1.943032.3.579.2.4 62 Unknown [id number] 2.16.840.1.153627.3.579.2.4 62 Unknown [id number] 2.16.840.1.278669.3.579.2.4 62 Unknown [id number] 2.16.840.1.613184.3.579.2.4 62 Unknown [id number] 2.16.840.1.633585.3.579.2.4 62 Unknown [id number] 2.16.840.1.347181.3.579.2.4 62 Unknown [id number] 2.16.840.1.081443.3.579.2.4 62 Unknown [id number] 2.16.840.1.667888.3.579.2.4 62 Unknown [id number] 2.16.840.1.261756.3.579.2.4 62 Unknown [id number] 2.16.840.1.351584.3.579.2.4 62 Unknown [id number] 2.16.840.1.265022.3.579.2.4 62 Unknown [id number] 2.16.840.1.242050.3.579.2.4 62 Unknown [id number] 2.16.840.1.095290.3.579.2.4 62 Unknown [id number] 2.16.840.1.118469.3.579.2.4 62 Unknown [id number] 2.16.840.1.959283.3.579.2.4 62 Unknown [id number] 2.16.840.1.306049.3.579.2.4 62 Unknown [id number] 2.16.840.1.772180.3.579.2.4 62 Unknown [id number] 2.16.840.1.381445.3.579.2.4 62 Unknown [id number] 2.16.840.1.093603.3.579.2.4 62 Unknown [id number] 2.16.840.1.290564.3.579.2.4 62 Unknown [id number] 2.16.840.1.599816.3.579.2.4 62 Unknown [id number] 2.16.840.1.810487.3.579.2.4 62 Unknown [id number] 2.16.840.1.014315.3.579.2.4 62 Unknown [id number] 2.16.840.1.789993.3.579.2.4 62 Unknown [id number] 2.16.840.1.236218.3.579.2.4 62 Unknown [id number] 2.16.840.1.778753.3.579.2.4 62 Unknown [id number] 2.16.840.1.752280.3.579.2.4 62 Unknown [id number] 2.16.840.1.438435.3.579.2.4 62 Unknown [id number] 2.16.840.1.816665.3.579.2.4 62 Unknown [id number] 2.16.840.1.576773.3.579.2.4 62 Unknown [id number] 2.16.840.1.787946.3.579.2.4 62 Unknown [id number] 2.16.840.1.031674.3.579.2.4 62 Unknown [id number] 2.16.840.1.732423.3.579.2.4 62 Unknown [id number] 2.16.840.1.465202.3.579.2.4 62 Unknown [id number] 2.16.840.1.149254.3.579.2.4 62 Unknown [id number] 2.16.840.1.506168.3.579.2.4 62 Unknown [id number] 2.16.840.1.392293.3.579.2.4 62 Unknown [id number] 2.16.840.1.970153.3.579.2.4 62 Unknown [id number] 2.16.840.1.780298.3.579.2.4 62 Unknown [id number] 2.16.840.1.303760.3.579.2.4 62 Unknown [id number] 2.16.840.1.870431.3.579.2.4 62 Unknown [id number] 2.16.840.1.444737.3.579.2.4 62 Unknown [id number] 2.16.840.1.669417.3.579.2.4 62 Unknown [id number] 2.16.840.1.287759.3.579.2.4 62 Unknown [id number] 2.16.840.1.041147.3.579.2.4 62 Unknown [id number] 2.16.840.1.358224.3.579.2.4 62 Unknown [id number] 2.16.840.1.391976.3.579.2.4 62 Unknown [id number] 2.16.840.1.318968.3.579.2.4 62 Unknown [id number] 2.16.840.1.075433.3.579.2.4 62 Unknown [id number] 2.16.840.1.061890.3.579.2.4 62 Unknown [id number] 2.16.840.1.184828.3.579.2.4 62 Unknown [id number] 2.16.840.1.126297.3.579.2.4 62 Unknown [id number] 2.16.840.1.605336.3.579.2.4 62 Unknown [id number] 2.16.840.1.315784.3.579.2.4 62 Unknown [id number] 2.16.840.1.034486.3.579.2.4 62 Unknown [id number] 2.16.840.1.449291.3.579.2.4 62 Unknown [id number] 2.16.840.1.590775.3.579.2.4 62 Unknown [id number] 2.16.840.1.473814.3.579.2.4 62 Unknown [id number] 2.16.840.1.153387.3.579.2.4 62 Unknown [id number] 2.16.840.1.985436.3.579.2.4 62 Unknown [id number] 2.16.840.1.046617.3.579.2.4 62 Unknown [id number] 2.16.840.1.577861.3.579.2.4 62 Unknown [id number] 2.16.840.1.842887.3.579.2.4 62 Unknown [id number] 2.16.840.1.651896.3.579.2.4 62 Unknown [id number] 2.16.840.1.934865.3.579.2.4 62 Social History Date Type Detail Facility Start: 02-01-2022 End: 12-12-2023 Tobacco smoking status NHIS Unknown if ever smoked [facility] Start: 03-15-2021 None [facility] Start: 03-15-2021 Non-smoker [facility] Start: 1950 Sex Assigned At Male [facility] Start: 08-07-2013 End: 04-18-2025 Tobacco smoking status NHIS Never smoked tobacco [facility] Start: 08-07-2013 End: 01-15-2023 Tobacco use and exposure Smokeless tobacco non-user [facility] Start: 12-19-2021 End: 12-05-2023 Alcohol intake Current non-drinker of alcohol (finding) [facility] Start: 1950 Sex Assigned At Not on file [facility] Start: 01-05-2023 End: 01-15-2023 Exposure to SARS-CoV-2 (event) Not sure [facility] Start: 06-21-2018 Spouse/ Significant Other [facility] Start: 07-13-2023 End: 02-15-2025 History of Social function [facility] Start: 07-13-2023 End: 02-15-2025 Tobacco use panel [facility] Start: 04-16-2024 End: 04-15-2025 Alcoholic beverage intake Lifetime non-drinker (finding) [facility] Start: 10-17-2024 Gender identity Identifies as male gender (finding) [facility] Start: 10-17-2024 Sexual orientation Heterosexual (finding) [facility] Has the [employer], oil, or water [employer] threatened to shut off services in your home in past 12Mo No [facility] How hard is it for y ou to pay for the very basics like food, housing, medical care, and heating Not very hard [facility] (I/We) worried hannah er (my/our) food would run out before (I/we) got money to buy more. Never true [facility] In the past 12 month s, has lack of transportation kept you from medical appointments or from getting medications? No [facility] Start: 12-22-2012 End: 02-13-2025 Sex Male (finding) [facility] Medical Equipment Procedure Code Equipment Code Equipment Original Text Equipment Identifier Dates [employer] COOK SHORT ORDER-P [id number] FDA Start: 05-26-2016 [employer] COOK SHORT ORDER-P [id number] FDA Start: 05-26-2016 [employer] COOK SHORT ORDER-P C4TR01 FDA Start: 05-26-2016 [employer] COOK SHORT ORDER-P C4TR01 FDA Start: 05-26-2016 [employer] COOK SHORT ORDER-P C4TR01 FDA Start: 05-26-2016 [id number] Start: 08-07-2013 Lead Pace Lv [id number]/75 - [id number] Start: 05-26-2016 Cardiac pacemaker, device (physical object) ([id number]) 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 ([id number], [id number]_[id number] FDA Start: 10-10-2021 Comment on above: Description: Implant time-out completed by intra-procedural staff including this RN, scada technician, and performing physician. The following was completed. RN reads out loud implant type/size/ expiration date, and verbalizes location. Holds package up to tech to visually verify implant details. Tech reads back package details MD verifies verbally correct implant Time-out was completed for each coil during embolization, if applicable. [employer] COOK SHORT ORDER-P C4TR01 FDA Start: 05-26-2016 [employer] COOK SHORT ORDER-P C4TR01 FDA Start: 05-26-2016 [employer] COOK SHORT ORDER-P C4TR01 FDA Start: 05-26-2016 [employer] COOK SHORT ORDER-P C4TR01 FDA Start: 05-26-2016 [employer] COOK SHORT ORDER-P C4TR01 FDA Start: 05-26-2016 [employer] COOK SHORT ORDER-P C4TR01 FDA Start: 05-26-2016 [employer] COOK SHORT ORDER-P C4TR01 FDA Start: 05-26-2016 [employer] COOK SHORT ORDER-P C4TR01 FDA Start: 05-26-2016 [employer] COOK SHORT ORDER-P C4TR01 FDA Start: 05-26-2016 [employer] COOK SHORT ORDER-P C4TR01 FDA Start: 05-26-2016 [employer] COOK SHORT ORDER-P C4TR01 FDA Start: 05-26-2016 [employer] COOK SHORT ORDER-P C4TR01 FDA Start: 05-26-2016 [employer] COOK SHORT ORDER-P C4TR01 FDA Start: 05-26-2016 [employer] COOK SHORT ORDER-P C4TR01 FDA Start: 05-26-2016 [employer] COOK SHORT ORDER-P C4TR01 FDA Start: 05-26-2016 [employer] COOK SHORT ORDER-P C4TR01 FDA Start: 05-26-2016 [employer] COOK SHORT ORDER-P C4TR01 FDA Start: 05-26-2016 [employer] COOK SHORT ORDER-P C4TR01 FDA Start: 05-26-2016 [employer] COOK SHORT ORDER-P C4TR01 FDA Start: 05-26-2016 [employer] COOK SHORT ORDER-P C4TR01 FDA Start: 05-26-2016 [employer] COOK SHORT ORDER-P C4TR01 FDA Start: 05-26-2016 [employer] COOK SHORT ORDER-P C4TR01 FDA Start: 05-26-2016 FDA Start: 05-26-2016 [id number] FDA Start: 03-29-2023 [employer] COOK SHORT ORDER-P C4TR01 FDA Start: 05-26-2016 [employer] COOK SHORT ORDER-P C4TR01 FDA Start: 05-26-2016 [employer] COOK SHORT ORDER-P C4TR01 FDA Start: 05-26-2016 [employer] COOK SHORT ORDER-P C4TR01 FDA Start: 05-26-2016 [employer] COOK SHORT ORDER-P C4TR01 FDA Start: 05-26-2016 Lead Pace Standard Mdt 52cm - [id number] Start: 05-26-2016 Cardiac pacemaker, device (physical object) ([id number]) [id number] Start: 04-02-2024 Cardiac pacemaker, device (physical object) ([id number]) 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 FDA Start: 05-26-2016 FDA Start: 05-26-2016 FDA Start: 05-26-2016 FDA Start: 05-26-2016 FDA Start: 05-26-2016 FDA Start: 05-26-2016 Goals Date Patient Goal Desired Activity /State Functional Status Date Assessment Result Facility 02-15-2025 Within the last year , have you been humiliated or emotionally abused in other ways by your partner or ex-partner? No [facility] 02-15-2025 Within the last year , have you been afraid of your partner or ex-partner? No [facility] 02-15-2025 Within the last year , have you been kicked, hit, slapped, or otherwise physically hurt by your partner or ex-partner? No [facility] 02-13-2025 Are you deaf, or do you have serious difficulty hearing Yes [facility] 02-13-2025 Are you blind, or do you have serious difficulty seeing, even when wearing glasses No [facility] 02-13-2025 Do you have serious difficulty walking or climbing stairs No [facility] 02-13-2025 Do you have difficul ty dressing or bathing Yes [facility] 02-13-2025 Because of a physica l, mental, or emotional condition, do you have difficulty doing errands alone such as visiting a physician's office or shopping No [facility] 01-19-2023 Functional status Ambulates;Bill r;Bathroom Privilege [facility] Work Phone: 07-18-2022 Functional status Patient Activity Chair [facility] Work Phone: 07-18-2022 Functional status Activity Abili ty With Assist of 1 [facility] Work Phone: 07-17-2022 Functional status None [facility] Work Phone: 04-06-2022 Functional status Chair [facility] Work Phone: 01-12-2022 Functional status Patient Activi ty Ambulates [facility] Work Phone: 01-12-2022 Functional status Activity Abili ty With Assist of 1 [facility] Work Phone: 01-12-2022 Functional status None [facility] Work Phone: Mental Status Date Assessment Result Facility 02-13-2025 Because of a physica l, mental, or emotional condition, do you have serious difficulty concentrating, remembering, or making decisions No [facility] 12-16-2024 Cognitive function Awake;Alert;Appropriat e [facility] Work Phone: 01-19-2023 Cognitive function Voice/Name [facility] Work Phone: 01-17-2023 Cognitive function Level Of Cons ciousness Awake;Alert;Appropriate;Fol lows Commands [facility] Work Phone: 07-18-2022 Cognitive function Voice/Name [facility] Work Phone: 07-15-2022 Cognitive function Level Of Cons ciousness Drowsy [facility] Work Phone: 04-06-2022 Cognitive function Voice/Name [facility] Work Phone: 01-12-2022 Cognitive function Voice/Name [facility] Work Phone: 09-27-2020 Cognitive function Awake;Alert;A ppropriate;Fol lows Commands [facility] Work Phone: 09-24-2020 Cognitive function Voice/Name [facility] Work Phone: 09-12-2018 Cognitive function Appropriate;C ashlee;Relaxed;Ch eerful [facility] Work Phone: Clinical Notes 08-19-2003 to 04-30-2025 Vaishnavi Fry DO - 04/15/2025 4:00 PM EDTBgrecia Arana LPN - 04/15/2025 4:00 PM EDTPatient InstructionsNursing Notes - Adeel Ramon RN - 03/06/2025 3:07 PM EDKaren Crowe - 03/03/2025 1:26 PM EDT Note Date & Type Note Facility 04-30-2025 Radiology Diagnostic study note [facility] 04-30-2025 Radiology Diagnostic study note [facility] 04-18-2025 Radiology Diagnostic study note [facility] 04-18-2025 Radiology Diagnostic study note [facility] 04-18-2025 Hospital Discharge instructions Additional Instructions The x-rays of your hip, pelvis, and femur show no fractures. I suspect you have pain from bruising. I recommend you ice and 20-minute sessions off-and-on throughout the day and take Tylenol every 6 hours as needed. Pain is not improving in 7 to 10 days see your family doctor. [facility] Work Phone: 04-15-2025 History of Present illness Narrative -Referring Provider for today's consult: Self, Self -Primary Care Provider: Castro Ferrara History of Present Illness Christian Amador is a 75 y.o. male who presents to the [facility] today for consultation regarding his diagnosis of Follow-up (Pt's states he was in the hospital at [facility] in 02/13/2025-03/09/2025 for pneumonia, rectal bleeding, cat scan of abdomen and gastric emptying test done at [place]. ). I have reviewed his medical, surgical, family [...] Warfarin, CAD, MIA, HLD, ESRD on iHD, and possible seizure disorder previously on Keppra. Mr. Mcguire reports a remote history of abnormal liver function tests though workup was largely unremarkable (previous testing not available to review). In fall 2020, he was transferred to [facility] for respiratory failure due to COVID, retroperitoneal bleeding, pelvic fractures and fungemia. During this prolonged admission, he underwent abdominal imaging which was concerning for cirrhosis. 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 His liver disease was complicated by HE which is improved on Lactulose. Mr. Mcguire had another prolonged admission in 02/2023 due to a loculated pleural effusion thought to be related to PNA which was treated with a chest tube and antibiotics. During this admission, he underwent abdominal imaging which revealed a possible bladder mass and a small subcm lesion in the liver. He did complete follow up imaging for this lesion in 07/2023 without evidence of a liver lesion. Since his last appointment, he was admitted again for SOB -- found to have metapneumovirus in the setting of his chronic effusion. During this admission, he was noted to have rectal bleeding -- underwent an EGD which revealed PHG and a colonoscopy with evidence of colonic ischemia which was thought to be the source. Since discharge, he has been feeling overall ok. Fatigue/energy level has been fluctuating. Itching remains a prominent issue. He denies signs of hepatic decompensation including ascites, jaundice, scleral icterus, HE or GIB. Past Medical History He has a past medical history of Anemia, Arrhythmia, Arthritis, Atrial flutter, Atrial tachycardia, BPH (benign prostatic hyperplasia), CAD (coronary artery disease), Cardiomyopathy, Congestive heart failure, unspecified, Essential hypertension, benign, GERD (gastroesophageal reflux disease), Gout, Hematochezia, Hematoma (03/2012, 04/2012), HTN (hypertension), benign, Hyperlipidemia, Hypothyroidism, Kidney stones, Leukocytosis, Liver disease, Lymphoma, Lymphoma, MIA (obstructive sleep apnea), Pacemaker, Rheumatic heart disease, S/P AVR (aortic valve replacement), S/P radiofrequency ablation operation for arrhythmia, Seizure (06/08), Septic shock, TIA (transient ischemic attack), and Vascular disease. He has no past medical history of Diabetes mellitus or Difficult intubation. Past Surgical History Past Surgical History: Procedure Laterality Date UPGRADE GENERATOR PACEMAKER SINGLE TO DUAL CHAMBER SYSTEM N/A 04/02/2024 Laterality: N/A; Surgeon: oRnnie Ferrari MD; Location: [facility] EGD DIAGNOSTIC 06/2022 INSERTION CVC TUNNELED N/A 10/10/2021 Laterality: N/A; Surgeon: Remy Ferrer MD; Location: [facility]) INSERTION CVC TUNNELED N/A 10/03/2021 Laterality: N/A; Surgeon: Kaylin Duran II, MD; Location: [facility] ([facility]) PLACEMENT PROBE FOR TRANSESOPHAGEAL [...] CVC TUNNELED Right 07/07/2016 Laterality: Right; Surgeon: Kaylin Grider MD; Location: [facility] INTERVENTIONAL RADIOLOGY (VIR) CARDIAC VEIN ELECTRODE PLACEMENT FOR LV PACING N/A 05/26/2016 Laterality: N/A; Surgeon: Yi Cody MD; Location: [facility] EP PACEMAKER PLACEMENT N/A 05/26/2016 Laterality: N/A; Surgeon: Yi Cody MD; Location: [facility] INSERTION CVC TUNNELED Right 05/19/2016 Laterality: Right; Surgeon: Kaylin Grider MD; Location: [facility] INTERVENTIONAL RADIOLOGY (VIR) INSERTION CVC TUNNELED Left 05/18/2016 Laterality: Left; Surgeon: Kaylin Grider MD; Location: [facility] INTERVENTIONAL RADIOLOGY (VIR) PACEMAKER ELECTRODE REMOVAL [...] N/A; Surgeon: Favio Kline MD; Location: [facility] CARDIAC PACEMAKER PLACEMENT 10/20/2010 Implant: Medtronic [id number] Versa CARDIAC PACEMAKER PLACEMENT 08/31/2003 Implant: Medtronic LUQ000 [place] [address] APPENDECTOMY AR ANES HRT PERICRD SAC&GRT 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 ALPRAZolam 1 MG tablet Take 1 tablet by mouth at bedtime. B Rjyzpqw-Q-Yuajc Acid (NEPHRO-BALTAZAR PO) Take 1 tablet by mouth at bedtime. Cyclobenzaprine 10 MG tablet Take 1 tablet by mouth 2 times daily. doxycycline hyclate 100 MG capsule Take 1 capsule by mouth 2 times daily. Fluconazole 200 MG tablet Take 1 tablet by mouth daily. Lactulose 10 GM/15ML Solution oral solution Take 15 mL by mouth 2 times daily. (Patient taking differently: Take 15 mL by mouth daily.) levothyroxine 75 MCG tablet Take 1 tablet by mouth every morning before breakfast. Midodrine HCl 10 MG tablet Take 1 tablet by mouth. 1 Tablet Sunday, Sunday, Sunday 2 Tablets Sun And Sun (Patient taking differently: Take 1 tablet by mouth. 1 Tablet Sunday, Sunday, Sunday 2 Tablets Sun And Sun and up to 40 mg on dialysis days (4 tabs)) pantoprazole [address] tablet DR Take 1 tablet by mouth daily. Reglan 5 MG tablet Take 0.5 tablets by mouth Three times a day. 1/2 hour before meals Sensipar 30 MG tablet Take 1 tablet by mouth 3 times weekly. (Patient taking differently: Take 1 tablet by mouth twice a week. Given on Sunday and ) Sucroferric Oxyhydroxide 500 MG Chew Tab Chew 1,000 mg 3 times daily with meals. warfarin 2 MG tablet Take 1 tablet by mouth every evening at 6 PM. Allergies No Known Allergies Social History He is present today with his . Family History His family history includes Breast Cancer in his sister; Coronary Artery Disease in his brother and father; Diabetes in his mother, paternal aunt, paternal uncle, and sister; Heart Defect in his paternal uncle; Heart Disease - Other in his brother, father, paternal aunt, and paternal uncle; Heart Surgery in his brother and father; Myocardial Infarction in his paternal uncle and paternal uncle; Sudden Cardiac in his paternal uncle. Review of Systems GENERAL: Negative for any nausea, vomiting, fevers, chills, or weight loss. +fatigue NEUROLOGIC: Negative for any blurry vision, blind [...] Negative for any rashes, cuts, insect bites. +itching RHEUMATOLOGIC: Negative for any photosensitive rashes, history of vasculitis or kidney problems. HEMATOLOGIC: Negative for any abnormal bruising, frequent infections or bleeding. Physical Exam Blood pressure 90/40, pulse 70, resp. rate 16, height 1.708 m (5' 7.25), weight 62.6 kg (138 lb), SpO2 96%. Wt Readings from Last 3 Encounters: 04/15/25 62.6 kg (138 lb) 02/17/25 78.9 kg (173 lb 15.1 oz) 12/18/24 79.2 kg (174 lb 8 oz) Constitutional: Chronically ill appearing male in [...] following: Lab Results Component Value Date SODIUM 139 03/05/2025 POTASSIUM 5.1 (H) 03/05/2025 CHLORIDE 100 03/05/2025 CO2 25 03/05/2025 BUN 26 (H) 03/05/2025 CREATSERUM 5.35 (H) 03/05/2025 Lab Results Component Value Date WBC 10.65 (H) 03/05/2025 HGB 10.6 (L) 03/05/2025 HCT 34.2 (L) 03/05/2025 PLATELET 303 03/05/2025 MCV 104.3 (H) 03/05/2025 Lab Results Component Value Date ALT 15 02/14/2025 AST 41 (H) 02/14/2025 GGT 516 (H) 02/06/2023 ALKPHOS 274 (H) 02/14/2025 BILITOTAL 0.7 02/14/2025 BILIDIRECT 0.3 (H) 02/14/2025 MELD 3.0: 22 at 02/16/2025 4:31 AM MELD-Na: 25 at 02/16/2025 4:31 AM Calculated from: Serum Creatinine: 8.21 mg/dL (Using max of 3 mg/dL) at 02/16/2025 4:31 AM Serum Sodium: 137 mmol/L at 02/16/2025 4:31 AM Total Bilirubin: 0.7 mg/dL (Using min of 1 mg/dL) at 02/14/2025 12:26 AM Serum Albumin: 3.4 g/dL at 02/14/2025 12:26 AM INR(ratio): 1.6 at 02/15/2025 4:47 AM Age at listing (hypothetical): 74 years Sex: Male at 02/16/2025 4:31 AM Serologic Workup: Hepatitis C AB: Negative Hepatitis B surface AB: Positive Hepatitis B surface AG: Negative Hepatitis B core total AB: Negative Hepatitis A Total IgG: Positive Ferritin: 224.3 Iron saturation: 20 DOUG: Negative AMA: Negative Anti Smooth Muscle AB: Negative Ig IgA: 158 IgM: 383 Ceruloplasmin: 37 A1AT level: 210 Imaging: Echocardiogram (02/17/2025): Mildly dilated left ventricle with mild increase in septal wall wall thickness (max 1.2 cm). Normal systolic function, LVEF 55-60%, with abnormal septal motion. Diastolic function could not be assessed d/t MVr. Normal right ventricular size with low normal systolic function. S/p mitral valve repair with an annuloplasty ring & mild residual, posteriorly directed, regurgitation (EROA 0.15 cm2). MV gradients of 12/4 mmHg obtained at HR of 70 bpm. Prosthesis in aortic position, appears well seated. Disk mobility could not be assessed. No evidence of dysfunction on Doppler assessment (Vmax 1.9, PG 15/9 mmHg, DI Vmax 0.27, DI VTI 0.33) with mild regurgitation. Mild to moderate tricuspid regurgitation with moderate RVSP elevation, estimated at 55 mmHg. Mild dilation of the visualized segments of the ascending aorta (3.8 cm). No evidence of intracardiac shunting on agitated saline or color Doppler study RUQ US (12/31/2024): Coarse echotexture of the liver could be underlying hepatocellular disease. No focal mass. RUQ US (07/02/2024): Mild hepatomegaly and hetergenous echotexture of the liver. RUQ US (12/2023): Heterogenous echotexture of the liver. CT A/P with IV contrast (07/2024): Left lobe infiltrate could be due to pneumonia. Persistent small left pleural effusion which could be loculated. Otherwise no focal acute inflammatory process Small adrenal nodule Atrophic kidneys without evidence of hydronpehrosis Liver without mass Echocardiogram (02/12/2023): - Left ventricle is normal in size with mild concentric hypertrophy. Ejection fraction 50-55%. - Right ventricle is normal in size with mildly reduced function. Device wire is present. - Severely dilated left atrium. - Bubble study is negative for shunt. - Aortic valve is mechanical ([address] [place]). Vmax 3.2 m/s, MG 20 mmHg. Mild regurgitation, likely valvular and paravalvular. - Mitral valve is s/p ring annuloplasty (#28 Brady) with known ring dehiscence. Leaflets are moderately thickened. Mild-moderate regurgitation. Mean gradient 4 mmHg at 71 bpm. - Mild TR, mild AR. - RVSP estimated 42 mmHg. - Compared to prior study 09/23/21, overall findings are similar. CT A/P with IV contrast (02/03/2023): 1. [...] Ancillary findings otherwise as above. RUQ US (03/17/2022): 1. Heterogeneous hepatic parenchymal echogenicity suggestive of [...] bilateral pleural effusions, right greater than left. Procedures: Colonoscopy (02/16/2025): Impression: - Moderate stenosis and ulceration in the sigmoid colon. Due to concern for possible ischemic bowel, the moderate stenosis was not traversed. Biopsied. - Myochosis in sigmoid colon - Bleeding external and internal hemorrhoids. EGD (02/16/2025): Impression: - Z-line regular, 43 cm from the incisors. - Normal esophagus. - 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 gastropathy. - Normal examined duodenum. Assessment and Plan Christian Amador is a 75 y.o. 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 His medical history is also notable for rheumatic heart disease s/p AV replacement, atrial flutter on Warfarin, CAD, MIA, HLD, ESRD on iHD, possible seizure disorder previously on Keppra. MELD 22 but driven by INR on Coumadin and renal dysfunction PLAN: - Labs (BMP, LFTs, INR) should be performed every 3 months with an updated MELD score. Reviewed recent labs. - Given his underlying cirrhosis, I recommend HCC screening every 6 months with an abdominal imaging study in conjunction with a serum AFP. Reports that he underwent an unremarkable CT scan last month at this local hospital. We'll attempt to obtain this report then tentatively plan for a RUQ US in 6months. Update AFP with next labs. - He underwent an EGD on 01/2025 without evidence of varices. Can consider repeat EGD in 2-3 years based on overall clinic status. - He has to restart Lactulose and stop Rifaximin due to insurance limitations. - For pain, I recommend acetaminophen, up to but not exceeding 2,000 mg daily, and would try to avoid using NSAIDs for pain control given their risk for mucosal ulceration, bleeding and nephrotoxicity. Would also recommend against using narcotics or benzodiazepines given their risk for precipitating or exacerbating hepatic encephalopathy. - Vaccination status: Immunity against HBV and HAV. - For follow up, he will return to clinic in 6months with Kelby Chance and with me in 1 year. Thank you for allowing us to participate in the care of Christian Amador. Vaishnavi Fry DO Guidance Director of Clinical Medicine Division of Gastroenterology, Hepatology and Nutrition [facility] Pager: [phone] Patient verified name and date of with this [employer]. Pt. Is accompanied by his today. documented in this encounter [facility] 04-15-2025 Instructions Vaishnavi Fry DO - 04/15/2025 4:00 PM EDT Plan for repeat liver ultrasound in 6months which can be completed locally Atarax prescribed for itching Follow up in 6months with Kelby Chance documented in this encounter [facility] 04-08-2025 Nuclear medicine Diagnostic study note [facility] 03-06-2025 Miscellaneous Notes Summary: discharge Patient discharge instructions reviewed, to include follow-up scheduling, discharge medications and changes to home medications, discharge plans. IV removed; patient denies any questions. Patient discharged in stable condition, by wheelchair, accompanied by RN Tunneled HD CVC used for HD treatment, adequate flows on machine, able to achieve pump speed: 400 ml/min blood flow rate. Net 1705 ml removed over 3.5hours; BLP 82.3. Average Crit Line Profile A-B. Pt tolerated well with VSS - No LOC changes/concerns. No behavioral issues during tx. - Pt in AV paced Rhythm, no changes in rhythm during tx. - Dialyzer Clearance:Moderate. - No medication administered. 03/06/25 1335 Tx Assessment/Safety (Pre/Post) Post Procedure Bleach Disinfectant? No Blood Liters Processed (BLP) 76.9 Transport Modality bed Dialyzer Clearance moderate Tolerance to Dialysis Procedure Patient goal decreased for BP support. Patient had emesis of about 20 ml while on HD. Net removal 1705 Treatment Assessment Machine Temperature 96.8 F (36 C) Crit Line - Hematocrit 35 % Crit Line - Hemoglobin 11.9 g/dL Crit Line - Blood Volume % -10 % Crit Line - SvO2 39.2 % Hemodialysis, Lines Secure/Site Visible Yes Hemodialysis, Safety Factors no supplemental oxygenation needed;access site visible and intact Hemodialysis, Comments patient tolerating treatment well;resting with stable VS, no complaints (Treatment end blood returned) Vital Signs Temp 97.8 F (36.6 C) Temp source Oral Pulse (Heart Rate) 71 Resp Rate (!) 27 BP 91/48 MAP (mmHg) 68 mmHg O2 Sat (%) 99 % ECG/Rhythm Lead Monitored Lead II Rhythm A-V sequential paced Tunneled Central Line - Double Lumen 10/10/21 1116 red white internal jugular vein, right other (see comments) Placement Date/Time: 10/10/21 111 Present On Admission : yes Placement Over Guidewire: yes Lumen 1: red Lumen 2: white Location: internal jugular vein, right Device/Lot Number: dialysis/apheresis catheter Size/Length: (c) other (see comments)... Insertion Site WDL WDL Site Signs/Symptoms dressing dry and intact;site asymptomatic Site Preparation/Maintenance site cleansed: chlorhexidine solution;site cleansed: 70% alcohol;dressing: transparent semipermeable;dressing: antimicrobial;dressing: dry and intact Date Dressing Changed 03/02/25 Securement sutures, secured with Lumen 1 Patency/Maintenance flushed without difficulty Date Lumen 1 Cap/Connector Changed/Applied 03/06/25 Lumen 2 Patency/Maintenance flushed without difficulty Date Lumen 2 Cap/Connector Changed/Applied 03/06/25 Indication/Daily Review of Necessity hemodialysis Treatment Record Start Time 1000 Stop Time 1335 Initiation air foam detector engaged;all connections secured;parameters set, arterial;parameters set, venous;prime given (specify mL);saline line double clamped Fluid Volume Removal 2004 Total Fluid Given 300 Returning to Patient Care Unit Transport Testing Complete yes NPO no O2 (Room air) Changes In Status no [place] Procedure Orders Written no Sending RN/Tech Name Alyssa Phone [phone] Returning to Patient Care Unit Transport yes General Pain Documentation (Adult, OB, Peds) Presence of Pain denies pain/discomfort Presence of Pain Score (Auto-calculated) 0 LOC/Significant Event RASS (Crain Agitation-Sedation Scale) 0-->alert and calm Significant Event HD treatment end Post-Hemodialysis Assessment Report given to GIO Donnelly Problem: Hemodialysis Goal: Safe, Effective Therapy Delivery Outcome: Progressing Goal: Effective Tissue Perfusion Outcome: Progressing Goal: Absence of Infection Signs and Symptoms Outcome: Progressing iHD tx ordered x 3.5 hrs. Plan to remove 2 kg as pt tolerates.. Pt on 2K bath as ordered, K+ of 5.1 on 03/06/2025. During [facility] Dialysis Treatment on 03/06/2025 the following interventions for Prevent/Manage Dialysis Procedure Complication were completed: Ensure system correctly primed, connections secure, and air detector alarms engaged. Verify correct machine setting with physician order. Assure proper dialysate conductivity and water quality prior to starting treatment Closely monitor patient throughout for tolerance to treatment During [facility] Dialysis Treatment on 03/06/2025 the following interventions to Protect/Monitor Dialysis Line/Access Site were completed: Inspect and monitor dialysis line and access site. Change dressing and caps per protocol Educate patient on home care, and reportable symptoms During [facility] Dialysis Treatment on 03/06/2025 the following interventions for Prevent/Manage Dialysis Procedure Complication were completed: Ensure system correctly primed, connections secure, and air detector alarms engaged. Verify correct machine setting with physician order. Assure proper dialysate conductivity and water quality prior to starting treatment Closely monitor patient throughout for tolerance to treatment Problem: Infection Goal: Absence of Infection Signs and Symptoms Outcome: Progressing Problem: Fall Injury Risk Goal: Fall/Trauma/Injury Risk: Absence of Trauma/Injury/Falls Description: Patient will demonstrate the desired outcomes. Outcome: Progressing Problem: Pain Acute Goal: Optimal Pain Control and Function Outcome: Progressing During [facility] Dialysis Treatment on 03/04/2025 the following interventions for Prevent/Manage Dialysis Procedure Complication were completed: Ensure system correctly primed, connections secure, and air detector alarms engaged. Verify correct machine setting with physician order. Assure proper dialysate conductivity and water quality prior to starting treatment Closely monitor patient throughout for tolerance to treatment During [facility] Dialysis Treatment on 03/04/2025 the following interventions for Monitoring and Managing Fluid Electrolyte/Acid Base Balance were completed: Monitor intake and output. Monitor daily weight. Enforce fluid restriction. Manage electrolyte shifts and resulting effect. Assess presence/location of edema. During Christian Amador's Dialysis Treatment on 03/04/2025 the following interventions to Protect/Monitor Dialysis Line/Access Site were completed: Inspect and monitor dialysis line and access site. Change dressing and caps per protocol Educate patient on home care, and reportable symptoms 03/04/25 1355 Tx Assessment/Safety (Pre/Post) Blood Liters Processed (BLP) 74.2 Transport Modality bed Dialyzer Clearance moderate Tolerance to Dialysis Procedure Tolerated tx well, 2L UF removed. Off 10 min early d/t transport early arrival. Treatment Assessment UF Goal/mL: 2300 Fluid Removed/mL: 2300 ml Profile B Hemodialysis, Lines Secure/Site Visible Yes Hemodialysis, Safety Factors vital signs stable Vital Signs Temp 97.5 F (36.4 C) Pulse (Heart Rate) 71 Resp Rate (!) 26 BP 103/52 MAP (mmHg) 73 mmHg O2 Sat (%) 100 % ECG/Rhythm Lead Monitored Lead II Rhythm ventricular paced Tunneled Central Line - Double Lumen 10/10/21 1116 red white internal jugular vein, right other (see comments) Placement Date/Time: 10/10/21 1116 Present On Admission : yes Placement Over Guidewire: yes Lumen 1: red Lumen 2: white Location: internal jugular vein, right Device/Lot Number: dialysis/apheresis catheter Size/Length: (c) other (see comments)... Insertion Site WDL WDL Lumen 1 Patency/Maintenance flushed without difficulty Date Lumen 1 Cap/Connector Changed/Applied 03/04/25 Lumen 2 Patency/Maintenance flushed without difficulty Date Lumen 2 Cap/Connector Changed/Applied 03/04/25 Indication/Daily Review of Necessity hemodialysis Treatment Record Stop Time 1355 Fluid Volume Removal 2300 Total Fluid Given 300 Returning to Patient Care Unit Transport Testing Complete yes Changes In Status no [place] Procedure Orders Written no Sending RN/Tech Name Kenn POWERS Returning to Patient Care Unit Transport yes Cognitive/Neuro/Behavioral WDL Cognitive/Neuro/Behavioral WDL WDL Cardiovascular WDL Cardiac WDL ex;heart sounds Heart Sounds valve click Respiratory WDL Respiratory WDL ex;breath sounds Breath Sounds All Lung Chavez Breath Sounds diminished LOC/Significant Event RASS (Crain Agitation-Sedation Scale) 0-->alert and calm Significant Event HD completed. Post-Hemodialysis Assessment Report given to GIO Douglas Pt next PTT is due at 1415. HD RN accidentally draw pt PTT whiles the pt is at HD and it was 113.6. Per sliding scale, If PTT is 112-126, hold infusion for 60 minutes and decrease dose by 2 units/kg/hr. DO you want me to hold the heparin drip or let it run and draw the right PTT, which is due at 1415. MD Aldana notified. During [facility] Dialysis Treatment on 03/04/2025 the following interventions for Monitoring and Managing Fluid Electrolyte/Acid Base Balance were completed: Monitor intake and output. Monitor daily weight. Enforce fluid restriction. Manage electrolyte shifts and resulting effect. Assess presence/location of edema. During [facility] Dialysis Treatment on 03/04/2025 the following interventions for Prevent/Manage Dialysis Procedure Complication were completed: Ensure system correctly primed, connections secure, and air detector alarms engaged. Verify correct machine setting with physician order. Assure proper dialysate conductivity and water quality prior to starting treatment Closely monitor patient throughout for tolerance to treatment During [facility] Dialysis Treatment on 03/04/2025 the following interventions to Protect/Monitor Dialysis Line/Access Site were completed: Inspect and monitor dialysis line and access site. Change dressing and caps per protocol Educate patient on home care, and reportable symptoms The blood culture order from the line was mistakenly marked as collected by the VICE PRESIDENT [employer] GENERAL MANAGER [employer] [place], but it was not collected properly. Dr. Mel Aldana was notified and a re-order was requested. Problem: Adult Inpatient Plan of Care Goal: Plan of Care Review Outcome: Progressing Goal: Patient-Specific Goal (Individualized) Outcome: Progressing Goal: Absence of Hospital-Acquired Illness or Injury Outcome: Progressing Goal: Optimal Comfort and Wellbeing Outcome: Progressing Goal: Readiness for Transition of Care Outcome: Progressing HD Treatment Note iHD treatment complete, blood returned. Lines clamped and capped. Treatment Length: 3.5 hours; Bath Used: 3K; Blood Pump: adequate flows on machine, able to achieve BFR of 400 ml/min; Net Removed: 2 kg; BLP: 78.2. Average Crit Line Profile A/B. Tolerance: Pt tolerated treatment well with no interventions. Access: Right IJ Tunneled HD Line. Access Concerns: Pt has two small skin tears under the window dressing to his TDC. Small amounts of blood still seeping from tears, so sterile 2x2 gauze placed under window and SILVERIO Acevedo, consulted. Art & Yovani pressures were mildly elevated throughout tx. Dr. Jordan Uriarte notified, pt might benefit from TPA dwell prior to next tx. Cognition: Baseline: Oriented x 4. Changes: No LOC changes/concerns. Behavior: No behavioral issues during tx. Cardiac: Baseline: V-Paced.. Changes during tx: None Dialyzer Clearance: Clear. Medication: No medication administered. Report given to Stella Clemons RN. HD RN remained at bedside for duration of treatment. Pt stable upon departure from Dialysis Unit. 03/02/25 1430 Machine Checks Station/Room Number [id number] Tx Assessment/Safety (Pre/Post) Blood Liters Processed (BLP) 78.2 Transport Modality bed Dialyzer Clearance clear Tolerance to Dialysis Procedure well Treatment Assessment Blood Flow Rate (BFR) mL/min 400 Dialysate Flow Rate (DFR) mL/min 800 mL/min Arterial Pressure (AP) mmHg -250 Venous Pressure (FITNESS/WELLNESS DIRECTOR) mmHg 200 Transmembrane Pressure (TMP) mmHg 40 UF Goal/mL: 2300 Ultrafiltration Rate (UFR) mL/hr 750 Fluid Removed/mL: 2300 ml Machine Temperature 95.9 F (35.5 C) Crit Line - Hematocrit 30.6 % Crit Line - Hemoglobin 10.4 g/dL Crit Line - Blood Volume % -9.8 % Crit Line - SvO2 45.9 % Profile B Hemodialysis, Lines Secure/Site Visible Yes Hemodialysis, Safety Factors vital signs stable;access site visible and intact;no supplemental oxygenation needed Hemodialysis, Comments patient tolerating treatment well;resting with stable VS, no complaints Vital Signs Temp 97.6 F (36.4 C) Temp source Axillary Pulse (Heart Rate) 71 Heart Rate Source Monitor Resp Rate 23 BP 95/48 MAP (mmHg) 69 mmHg BP Method Automatic BP Location Left arm BP Position Lying O2 Sat (%) 100 % O2 Device room air ECG/Rhythm Lead Monitored Lead II Rhythm ventricular paced Tunneled Central Line - Double Lumen 10/10/21 1116 red white internal jugular vein, right other (see comments) Placement Date/Time: 10/10/21 1116 Present On Admission : yes Placement Over Guidewire: yes Lumen 1: red Lumen 2: white Location: internal jugular vein, right Device/Lot Number: dialysis/apheresis catheter Size/Length: (c) other (see comments)... Insertion Site WDL WDL Site Signs/Symptoms dressing dry and intact;site asymptomatic Site Preparation/Maintenance dressing: dry and intact Treatment Record Start Time 1055 Stop Time 1427 Fluid Volume Removal 2300 Total Fluid Given 300 Returning to Patient Care Unit Transport Testing Complete yes Additional Restrictions no Changes In Status no [place] Procedure Orders Written no Sending RN/Tech Name GIO Paulson Phone [phone] Returning to Patient Care Unit Transport yes Cognitive/Neuro/Behavioral WDL Cognitive/Neuro/Behavioral WDL WDL Motor Response (unassessed) Cardiovascular WDL Cardiac WDL ex Heart Sounds valve click Respiratory WDL Respiratory WDL ex Breath Sounds All Lung Chavez Breath Sounds diminished Genitourinary WDL Genitourinary WDL ex Voiding Characteristics patient on hemodialysis Safety Patient Safety WDL WDL Patient Safety Factors side rails raised x 3;bed in low position;wheels locked;call light in reach;ID band on;sitter/caregiver at bedside (HD RN remained at bedside for duration of tx) Infection Prevention personal protective equipment utilized;hand hygiene promoted;equipment surfaces disinfected Isolation Precautions contact precautions maintained;droplet precautions maintained Safety Management Safety Promotion/Fall Prevention clutter-free environment maintained;fall prevention program maintained General Pain Documentation (Adult, OB, Peds) Presence of Pain denies pain/discomfort Presence of Pain Score (Auto-calculated) 0 LOC/Significant Event RASS (Crain Agitation-Sedation Scale) 0-->alert and calm Significant Event iHD complete, pt off circ Post-Hemodialysis Assessment Report given to Stella Clemons RN Problem: Hemodialysis Goal: Safe, Effective Therapy Delivery Outcome: Progressing Goal: Effective Tissue Perfusion Outcome: Progressing Goal: Absence of Infection Signs and Symptoms Outcome: Progressing iHD tx ordered x 3.5 hrs. Plan to remove 2 kg as pt tolerates. Last iHD tx was 02/28/2025. Pt on 3K bath as ordered, K+ of 4.6 on 03/02/2025. During [facility] on 03/02/2025 the following interventions for Prevent/Manage Dialysis Procedure Complication were completed: Ensure system correctly primed, connections secure, and air detector alarms engaged. Verify correct machine setting with physician order. Assure proper dialysate conductivity and water quality prior to starting treatment Closely monitor patient throughout for tolerance to treatment During [facility] on 03/02/2025 the following interventions to Protect/Monitor Dialysis Line/Access Site were completed: Inspect and monitor dialysis line and access site. Change dressing and caps per protocol Educate patient on home care, and reportable symptoms During [facility] on 03/02/2025 the following interventions for Prevent/Manage Dialysis Procedure Complication were completed: Ensure system correctly primed, connections secure, and air detector alarms engaged. Verify correct machine setting with physician order. Assure proper dialysate conductivity and water quality prior to starting treatment Closely monitor patient throughout for tolerance to treatment Problem: Infection Goal: Absence of Infection Signs and Symptoms Outcome: Progressing Problem: Fall Injury Risk Goal: Fall/Trauma/Injury Risk: Absence of Trauma/Injury/Falls Description: Patient will demonstrate the desired outcomes. Outcome: Progressing Goal: Knowledge of risk factors/behavior modification Description: Knowledge of risk factors/behavior modification for fall/injury prevention Outcome: Progressing 02/28/251918 Tx Assessment/Safety (Pre/Post) Blood Liters Processed (BLP) 77.3 Transport Modality bed Dialyzer Clearance clear Tolerance to Dialysis Procedure tolerated tx well. 2.7 L net fluid removal in 3.5 hours. got Midodrine prior to HD. BP was stable until the very end when it dropped into the 80s systolic (pt asymptoamtic - BP stabilizaed post tx). pt's dressing was bloody when he arrived to tx with drainage coming from two separate skin tears above the insertion site (pictures in media file). this RN notified dr stiles and swabbed for infection and chris blood cultures x1 from the line. pressure dressing applied to contain bleeding. no signs of bleeding post tx - no blood in dressing Treatment Assessment Fluid Removed/mL: 2958 ml Hemodialysis, Comments (off circ) Vital Signs Temp 97.7 F (36.5 C) Temp source Axillary Heart Rate Source Monitor BP 98/51 BP Method Automatic BP Location Left arm BP Position Lying O2 Sat (%) 100 % O2 Device room air Treatment Record Stop Time 1918 Fluid Volume Removal 2958 Total Fluid Given 300 Safety Patient Safety WDL WDL Patient Safety Factors bed in low position;call light in reach;ID band on;side rails raised x 4;wheels locked General Pain Documentation (Adult, OB, Peds) Presence of Pain denies pain/discomfort Presence of Pain Score (Auto-calculated) 0 Post-Hemodialysis Assessment Report given to abraham lundberg During [facility] on 02/28/2025 the following interventions for Prevent/Manage Dialysis Procedure Complication were completed: Ensure system correctly primed, connections secure, and air detector alarms engaged. Verify correct machine setting with physician order. Assure proper dialysate conductivity and water quality prior to starting treatment Closely monitor patient throughout for tolerance to treatment During [facility] on 02/28/2025 the following interventions for Monitoring and Managing Fluid Electrolyte/Acid Base Balance were completed: Monitor intake and output. Monitor daily weight. Enforce fluid restriction. Manage electrolyte shifts and resulting effect. Assess presence/location of edema. During [facility] on 02/28/2025 the following interventions to Protect/Monitor Dialysis Line/Access Site were completed: Inspect and monitor dialysis line and access site. Change dressing and caps per protocol Educate patient on home care, and reportable symptoms Pt PTT is due but pt is at HD. Told Adriel DWYER RN about the PTT and he said he will draw it. Problem: Adult Inpatient Plan of Care Goal: Plan of Care Review Outcome: Progressing Goal: Absence of Hospital-Acquired Illness or Injury Outcome: Progressing Goal: Optimal Comfort and Wellbeing Outcome: Progressing Problem: Hemodialysis Goal: Safe, Effective Therapy Delivery Outcome: Progressing Goal: Effective Tissue Perfusion Outcome: Progressing Goal: Absence of Infection Signs and Symptoms Outcome: Progressing Problem: Breathing Pattern Ineffective Goal: Effective Breathing Pattern Outcome: Progressing 02/26/25 1032 Tx Assessment/Safety (Pre/Post) Blood Liters Processed (BLP) 65.4 Transport Modality bed Dialyzer Clearance moderate Tolerance to Dialysis Procedure Well, 2L UF. Vital Signs Temp 97.6 F (36.4 C) Temp source Oral Pulse (Heart Rate) 75 Resp Rate (!) 34 BP 101/51 MAP (mmHg) 73 mmHg O2 Sat (%) 99 % Treatment Record Start Time 0732 Stop Time 1032 Fluid Volume Removal 2400 Total Fluid Given 400 Returning to Patient Care Unit Transport Testing Complete yes NPO no Additional Restrictions no Changes In Status no [place] Procedure Orders Written no Sending RN/Tech Name Jordi POWERS Returning to Patient Care Unit Transport yes LOC/Significant Event Significant Event iHD completed Post-Hemodialysis Assessment Report given to Primary RN Problem: Hemodialysis Goal: Safe, Effective Therapy Delivery Outcome: Progressing During [facility] Treatment on 02/26/2025 the following interventions for Monitoring and Managing Fluid Electrolyte/Acid Base Balance were completed: Monitor intake and output. Monitor daily weight. Enforce fluid restriction. Manage electrolyte shifts and resulting effect. Assess presence/location of edema. During [facility] on 02/26/2025 the following interventions for Prevent/Manage Dialysis Procedure Complication were completed: Ensure system correctly primed, connections secure, and air detector alarms engaged. Verify correct machine setting with physician order. Assure proper dialysate conductivity and water quality prior to starting treatment Closely monitor patient throughout for tolerance to treatment During [facility] on 02/26/2025 the following interventions to Protect/Monitor Dialysis Line/Access Site were completed: Inspect and monitor dialysis line and access site. Change dressing and caps per protocol Educate patient on home care, and reportable symptoms Problem: Adult Inpatient Plan of Care Goal: Absence of Hospital-Acquired Illness or Injury Outcome: Progressing Goal: Optimal Comfort and Wellbeing Outcome: Progressing Problem: Breathing Pattern Ineffective Goal: Effective Breathing Pattern Outcome: Progressing A dual assessment of skin condition was performed by this signwriter and Bonnie Layton RN> Skin Assessment: Skin not within defined limits. - Photo taken and uploaded into notes in [facility]: Yes Fabian Score: 19 LDA Added:No Stella Swenson RN 02/25/25 1057 Tx Assessment/Safety (Pre/Post) Blood Liters Processed (BLP) 66.8 Transport Modality bed Dialyzer Clearance moderate Tolerance to Dialysis Procedure Well. 1.7L UF per crit line/vitals. Treatment Assessment Fluid Removed/mL: 2000 ml Vital Signs Pulse (Heart Rate) 69 Resp Rate (!) 31 BP 97/49 MAP (mmHg) 70 mmHg O2 Sat (%) 99 % Treatment Record Start Time 0756 Stop Time 1057 Fluid Volume Removal 2000 Total Fluid Given 300 Returning to Patient Care Unit Transport Testing Complete yes NPO no Additional Restrictions no Changes In Status no [place] Procedure Orders Written no Sending RN/Tech Name Jordi POWERS Returning to Patient Care Unit Transport yes LOC/Significant Event Significant Event iHD completed Post-Hemodialysis Assessment Report given to Primary RN Problem: Hemodialysis Goal: Safe, Effective Therapy Delivery Outcome: Progressing During [facility] on 02/25/2025 the following interventions for Monitoring and Managing Fluid Electrolyte/Acid Base Balance were completed: Monitor intake and output. Monitor daily weight. Enforce fluid restriction. Manage electrolyte shifts and resulting effect. Assess presence/location of edema. During [facility] on 02/25/2025 the following interventions for Prevent/Manage Dialysis Procedure Complication were completed: Ensure system correctly primed, connections secure, and air detector alarms engaged. Verify correct machine setting with physician order. Assure proper dialysate conductivity and water quality prior to starting treatment Closely monitor patient throughout for tolerance to treatment During [facility] on 02/25/2025 the following interventions to Protect/Monitor Dialysis Line/Access Site were completed: Inspect and monitor dialysis line and access site. Change dressing and caps per protocol Educate patient on home care, and reportable symptoms Problem: Adult Inpatient Plan of Care Goal: Plan of Care Review Outcome: Progressing Goal: Patient-Specific Goal (Individualized) Outcome: Progressing Goal: Absence of Hospital-Acquired Illness or Injury Outcome: Progressing Problem: Hemodialysis Goal: Safe, Effective Therapy Delivery Outcome: Progressing Goal: Effective Tissue Perfusion Outcome: Progressing Goal: Absence of Infection Signs and Symptoms Outcome: Progressing Problem: Breathing Pattern Ineffective Goal: Effective Breathing Pattern Outcome: Progressing 02/23/25 1730 Tx Assessment/Safety (Pre/Post) Blood Liters Processed (BLP) 76.4 Transport Modality bed Dialyzer Clearance moderate Tolerance to Dialysis Procedure Well with 2L UF off. Profile A/B throughout tx. Treatment Assessment Blood Flow Rate (BFR) mL/min 400 Dialysate Flow Rate (DFR) mL/min 800 mL/min Arterial Pressure (AP) mmHg -230 Venous Pressure (FITNESS/WELLNESS DIRECTOR) mmHg 160 Transmembrane Pressure (TMP) mmHg 30 UF Goal/mL: 2300 Ultrafiltration Rate (UFR) mL/hr 660 Fluid Removed/mL: 2300 ml Machine Temperature 95.9 F (35.5 C) Crit Line - Hematocrit 27.6 % Crit Line - Hemoglobin 9.4 g/dL Crit Line - Blood Volume % -8 % Crit Line - SvO2 60.4 % Profile A Hemodialysis, Lines Secure/Site Visible Yes Hemodialysis, Safety Factors vital signs stable;access site visible and intact Hemodialysis, Comments patient tolerating treatment well;resting with stable VS, no complaints Vital Signs Temp 97.5 F (36.4 C) Temp source Oral Pulse (Heart Rate) 70 Heart Rate Source Monitor Resp Rate (!) 26 BP 97/51 MAP (mmHg) 72 mmHg BP Method Automatic BP Location Left arm BP Position Lying O2 Sat (%) 99 % O2 Device room air Tunneled Central Line - Double Lumen 10/10/21 1116 red white internal jugular vein, right other (see comments) Placement Date/Time: 10/10/21 111 Present On Admission : yes Placement Over Guidewire: yes Lumen 1: red Lumen 2: white Location: internal jugular vein, right Device/Lot Number: dialysis/apheresis catheter Size/Length: (c) other (see comments)... Insertion Site WDL WDL Site Signs/Symptoms site asymptomatic;dressing dry and intact Site Preparation/Maintenance dressing: changed Date Dressing Changed 02/23/25 Securement catheter securement device, secured with Lumen 1 Patency/Maintenance flushed without difficulty Date Lumen 1 Cap/Connector Changed/Applied 02/23/25 Lumen 2 Patency/Maintenance flushed without difficulty Date Lumen 2 Cap/Connector Changed/Applied 02/23/25 Indication/Daily Review of Necessity hemodialysis Treatment Record Start Time 1408 Stop Time 1738 Initiation air foam detector engaged;all connections secured;parameters set, arterial;parameters set, venous Fluid Volume Removal 2300 Total Fluid Given 300 Returning to Patient Care Unit Transport Testing Complete yes NPO no Additional Restrictions no Changes In Status no [place] Procedure Orders Written no Sending RN/Tech Name Juju POWERS Phone [phone] Returning to Patient Care Unit Transport yes Cognitive/Neuro/Behavioral WDL Cognitive/Neuro/Behavioral WDL WDL Safety Patient Safety WDL ex;safety factors Safety Management Safety Promotion/Fall Prevention safety round/check completed;fall prevention program maintained LOC/Significant Event RASS (Crain Agitation-Sedation Scale) 0-->alert and calm Significant Event HD completed Post-Hemodialysis Assessment Report given to Raissa POWERS During [facility] on 02/23/2025 the following interventions for Monitoring and Managing Fluid Electrolyte/Acid Base Balance were completed: Monitor intake and output. Monitor daily weight. Enforce fluid restriction. Manage electrolyte shifts and resulting effect. Assess presence/location of edema. During [facility] on 02/23/2025 the following interventions for Prevent/Manage Dialysis Procedure Complication were completed: Ensure system correctly primed, connections secure, and air detector alarms engaged. Verify correct machine setting with physician order. Assure proper dialysate conductivity and water quality prior to starting treatment Closely monitor patient throughout for tolerance to treatment During [facility] on 02/23/2025 the following interventions to Protect/Monitor Dialysis Line/Access Site were completed: Inspect and monitor dialysis line and access site. Change dressing and caps per protocol Educate patient on home care, and reportable symptoms 02/23/25 1402 Outlier Review Reviewing for: Outlier Meeting Medical Necessity: Yes Medical Necessity Summary: heparin gtt until INR therapeutic. Lovenox bridge not appropriate due to dialysis patient and mechanical mitral valve. Barriers: IV Drug Needs;Standard Treatment/Therapy Barrier(s) Comments: no discharge barriers. INR 1.1 today - goal 2.5-3.5 Intervention: No intervention needed;Discussion with team Ever is established w/a local coumadin clinic - will follow up there once INR is therapeutic. Juju Su RN Clinical Office Specialist Please note that I am a float floor care technician and may not cover the same service every day. Please call the main Care Management office at [phone] for up-to-date coverage. Problem: Adult Inpatient Plan of Care Goal: Plan of Care Review Outcome: Progressing Goal: Patient-Specific Goal (Individualized) Outcome: Progressing Goal: Absence of Hospital-Acquired Illness or Injury Outcome: Progressing Goal: Optimal Comfort and Wellbeing Outcome: Progressing Goal: Readiness for Transition of Care Outcome: Progressing Problem: Hemodialysis Goal: Safe, Effective Therapy Delivery Outcome: Progressing Goal: Effective Tissue Perfusion Outcome: Progressing Goal: Absence of Infection Signs and Symptoms Outcome: Progressing Problem: Breathing Pattern Ineffective Goal: Effective Breathing Pattern Outcome: Progressing Problem: Adult Inpatient Plan of Care Goal: Plan of Care Review Outcome: Progressing Goal: Patient-Specific Goal (Individualized) Outcome: Progressing Goal: Absence of Hospital-Acquired Illness or Injury Outcome: Progressing Goal: Optimal Comfort and Wellbeing Outcome: Progressing Goal: Readiness for Transition of Care Outcome: Progressing HD Treatment Note iHD treatment complete, blood returned. Lines clamped and capped. Treatment Length: 3.5 hours; Bath Used: 3K; Blood Pump: adequate flows on machine, able to achieve BFR of 400 ml/min; Net Removed: 2 kg; BLP: 77.3. Average Crit Line Profile A/B. Tolerance: Pt tolerated treatment well with no interventions. Access: Right IJ Tunneled HD Line; dressing and caps CDI. Access Concerns: No concerns with access noted. Cognition: Baseline: Oriented x 4. Changes: No LOC changes/concerns. Behavior: No behavioral issues during tx. Cardiac: Baseline: V-Paced.. Changes during tx: None Dialyzer Clearance: Moderate. Medication: Pt was given 10 mg Midodrine PO at start of iHD tx. Report given to Farrah Anthony, RN, [phone]. HD RN remained at bedside for duration of treatment. Pt stable upon departure from Dialysis Unit. 02/21/25 1830 Machine Checks Station/Room Number [id number] Tx Assessment/Safety (Pre/Post) Blood Liters Processed (BLP) 77.3 Transport Modality bed Dialyzer Clearance moderate Tolerance to Dialysis Procedure well Treatment Assessment Blood Flow Rate (BFR) mL/min 400 Dialysate Flow Rate (DFR) mL/min 800 mL/min Arterial Pressure (AP) mmHg -190 Venous Pressure (FITNESS/WELLNESS DIRECTOR) mmHg 170 Transmembrane Pressure (TMP) mmHg 10 UF Goal/mL: 2300 Ultrafiltration Rate (UFR) mL/hr 780 Fluid Removed/mL: 2300 ml Machine Temperature 95.9 F (35.5 C) Crit Line - Hematocrit 27.1 % Crit Line - Hemoglobin 9.2 g/dL Crit Line - Blood Volume % -8.5 % Crit Line - SvO2 59.8 % Profile A Hemodialysis, Lines Secure/Site Visible Yes Hemodialysis, Safety Factors vital signs stable;access site visible and intact;no supplemental oxygenation needed Hemodialysis, Comments patient tolerating treatment well;resting with stable VS, no complaints Vital Signs Pulse (Heart Rate) 69 Heart Rate Source Monitor Resp Rate (!) 55 BP 104/51 MAP (mmHg) 74 mmHg BP Method Automatic BP Location Right arm BP Position Lying O2 Sat (%) 99 % O2 Device room air ECG/Rhythm Lead Monitored Lead II Rhythm ventricular paced Tunneled Central Line - Double Lumen 10/10/21 1116 red white internal jugular vein, right other (see comments) Placement Date/Time: 10/10/21 1116 Present On Admission : yes Placement Over Guidewire: yes Lumen 1: red Lumen 2: white Location: internal jugular vein, right Device/Lot Number: dialysis/apheresis catheter Size/Length: (c) other (see comments)... Insertion Site WDL WDL Site Signs/Symptoms dressing dry and intact;site asymptomatic Site Preparation/Maintenance dressing: dry and intact Treatment Record Start Time 1458 Stop Time 1826 Fluid Volume Removal 2300 Total Fluid Given 300 Returning to Patient Care Unit Transport Testing Complete yes Additional Restrictions no Changes In Status no [place] Procedure Orders Written no Sending RN/Felix Name GIO Paulson Phone [phone] Returning to Patient Care Unit Transport yes Cognitive/Neuro/Behavioral WDL Cognitive/Neuro/Behavioral WDL ex Motor Response (unassessed) Cardiovascular WDL Cardiac WDL ex Heart Sounds valve click Respiratory WDL Respiratory WDL ex Breath Sounds All Lung Chavez Breath Sounds diminished Genitourinary WDL Genitourinary WDL ex Voiding Characteristics patient on hemodialysis Safety Patient Safety WDL WDL Patient Safety Factors side rails raised x 3;bed in low position;wheels locked;call light in reach;ID band on;sitter/caregiver at bedside (HD RN remained at bedside for duration of tx) Infection Prevention personal protective equipment utilized;hand hygiene promoted;equipment surfaces disinfected Isolation Precautions contact precautions maintained;droplet precautions maintained Safety Management Safety Promotion/Fall Prevention clutter-free environment maintained;fall prevention program maintained General Pain Documentation (Adult, OB, Peds) Presence of Pain denies pain/discomfort Presence of Pain Score (Auto-calculated) 0 LOC/Significant Event RASS (Crain Agitation-Sedation Scale) 0-->alert and calm Significant Event iHD complete, pt off circ Post-Hemodialysis Assessment Report given to Farrah Anthony RN, [phone] Problem: Hemodialysis Goal: Safe, Effective Therapy Delivery Outcome: Progressing Goal: Effective Tissue Perfusion Outcome: Progressing Goal: Absence of Infection Signs and Symptoms Outcome: Progressing iHD tx ordered x 3.5 hrs. Plan to remove 2 kg as pt tolerates. Last iHD tx was 02/19/2025. Pt on 3K bath as ordered, K+ of 3.7 on 02/21/2025. During [facility] on 02/21/2025 the following interventions for Prevent/Manage Dialysis Procedure Complication were completed: Ensure system correctly primed, connections secure, and air detector alarms engaged. Verify correct machine setting with physician order. Assure proper dialysate conductivity and water quality prior to starting treatment Closely monitor patient throughout for tolerance to treatment During [facility] on 02/21/2025 the following interventions to Protect/Monitor Dialysis Line/Access Site were completed: Inspect and monitor dialysis line and access site. Change dressing and caps per protocol Educate patient on home care, and reportable symptoms During [facility] on 02/21/2025 the following interventions for Prevent/Manage Dialysis Procedure Complication were completed: Ensure system correctly primed, connections secure, and air detector alarms engaged. Verify correct machine setting with physician order. Assure proper dialysate conductivity and water quality prior to starting treatment Closely monitor patient throughout for tolerance to treatment Problem: Adult Inpatient Plan of Care Goal: Optimal Comfort and Wellbeing Outcome: Progressing Goal: Readiness for Transition of Care Outcome: Progressing Problem: Hemodialysis Goal: Absence of Infection Signs and Symptoms Outcome: Progressing 1820: PTT came back at 95.8. Physician okay'd Heparin gtt. To continue to run at the current rate. HD Treatment Note Access used for this treatment: RIJ tunneled line Access issues/complications: None Average Crit line profile: A-B LOC baseline: WNL Any changes to LOC baseline after HD: None Any changes to cardiac rhythm with HD: None Kidney cleared: Moderate Medications with HD treatment: pt on heparin gtt (see MAR) Patient tolerated treatment: Well without intervention Treatment Length: 3.5 hours; Blood pump: 400 ml/min Dialysate Flow: 800 ml/min; Net UF: 2 kg; BVP: 77 L; Bath Used: 3 K / 2.5 Ca 02/19/25 1828 Tx Assessment/Safety (Pre/Post) Less Than 30 Days Hepatitis B Surface Antigen Status Negative Hepatitis B Surface Antigen Resulted From [facility] lab Date Hepatitis B Surface Antigen Status Obtained 03/16/24 Post Procedure Bleach Disinfectant? No Blood Liters Processed (BLP) 77 Transport Modality bed Dialyzer Clearance moderate Tolerance to Dialysis Procedure well Treatment Assessment Fluid Removed/mL: 2400 ml Crit Line - Hematocrit 25.6 % Crit Line - Hemoglobin 8.7 g/dL Crit Line - Blood Volume % -10.2 % Crit Line - SvO2 73 % Hemodialysis, Comments (HD treatment complete; pt's blood returned) Vital Signs Pulse (Heart Rate) 69 Resp Rate 24 BP 98/48 MAP (mmHg) 69 mmHg O2 Sat (%) 98 % O2 Device room air Flow (L/min) 0 Tunneled Central Line - Double Lumen 10/10/21 1116 red white internal jugular vein, right other (see comments) Placement Date/Time: 10/10/21 1116 Present On Admission : yes Placement Over Guidewire: yes Lumen 1: red Lumen 2: white Location: internal jugular vein, right Device/Lot Number: dialysis/apheresis catheter Size/Length: (c) other (see comments)... Site Signs/Symptoms dressing dry and intact Lumen 1 Patency/Maintenance flushed without difficulty;blood return, able to obtain Lumen 2 Patency/Maintenance flushed without difficulty;blood return, able to obtain Indication/Daily Review of Necessity hemodialysis Treatment Record Start Time 1457 Stop Time 1828 Fluid Volume Removal 2400 Total Fluid Given 400 Cognitive/Neuro/Behavioral WDL Cognitive/Neuro/Behavioral WDL WDL LOC/Significant Event RASS (Crain Agitation-Sedation Scale) 0-->alert and calm Significant Event HD treatment complete; HD Treatment Plan of Care Plan for a 3.5 hour HD treatment today with UF goal of 2 kg as tolerated During [facility] on 02/19/2025 the following interventions to Protect/Monitor Dialysis Line/Access Site were completed: Inspect and monitor dialysis line and access site. Change dressing and caps per protocol Educate patient on home care, and reportable symptoms During [facility] on 02/19/2025 the following interventions for Prevent/Manage Dialysis Procedure Complication were completed: Ensure system correctly primed, connections secure, and air detector alarms engaged. Verify correct machine setting with physician order. Assure proper dialysate conductivity and water quality prior to starting treatment Closely monitor patient throughout for tolerance to treatment Problem: Adult Inpatient Plan of Care Goal: Optimal Comfort and Wellbeing Outcome: Progressing Goal: Readiness for Transition of Care Outcome: Progressing Problem: Hemodialysis Goal: Effective Tissue Perfusion Outcome: Progressing Goal: Absence of Infection Signs and Symptoms Outcome: Progressing Problem: Adult Inpatient Plan of Care Goal: Plan of Care Review Outcome: Progressing Problem: Adult Inpatient Plan of Care Goal: Optimal Comfort and Wellbeing Outcome: Progressing Goal: Readiness for Transition of Care Outcome: Progressing Problem: Breathing Pattern Ineffective Goal: Effective Breathing Pattern Outcome: Progressing Problem: Hemodialysis Goal: Effective Tissue Perfusion Outcome: Progressing Goal: Absence of Infection Signs and Symptoms Outcome: Progressing 02/17/251939 Tx Assessment/Safety (Pre/Post) Blood Liters Processed (BLP) 64.5 Transport Modality bed Dialyzer Clearance streaked Tolerance to Dialysis Procedure Well, net uf 2L removed, via Rt TDC. maintained soft BP throughout tx, however asymptomatic. Treatment Assessment UF Goal/mL: 2300 Fluid Removed/mL: 2300 ml Machine Temperature 97.9 F (36.6 C) Crit Line - Hematocrit 25.3 % Crit Line - Hemoglobin 8.6 g/dL Crit Line - Blood Volume % -10.3 % Crit Line - SvO2 58.7 % Profile B Hemodialysis, Lines Secure/Site Visible Yes Hemodialysis, Safety Factors access site visible and intact;vital signs stable;no supplemental oxygenation needed Hemodialysis, Comments resting with stable VS, no complaints;patient tolerating treatment well (iHD tx ended, vss, pt stable) Vital Signs Temp 97.7 F (36.5 C) Temp source Oral Pulse (Heart Rate) 71 Heart Rate Source Monitor Resp Rate (!) 29 BP 107/53 MAP (mmHg) 76 mmHg BP Method Automatic BP Location Left arm BP Position Lying O2 Sat (%) 100 % O2 Device room air Treatment Record Stop Time 1939 Initiation prime given (specify mL) Fluid Volume Removal 2300 Total Fluid Given 300 Returning to Patient Care Unit Transport Testing Complete yes NPO no Additional Restrictions none Changes In Status no [place] Procedure Orders Written no Sending RN/Tech Name Abigail POWERS Phone [phone] Returning to Patient Care Unit Transport yes Cognitive/Neuro/Behavioral WDL Cognitive/Neuro/Behavioral WDL WDL Motor Response General General return to WDL General Pain Documentation (Adult, OB, Peds) Presence of Pain denies pain/discomfort Presence of Pain Score (Auto-calculated) 0 Sleep/Rest/Relaxation (Adult,Pediatric,OB) Sleep/Rest/Relaxation awake LOC/Significant Event RASS (Crain Agitation-Sedation Scale) 0-->alert and calm Significant Event Off circ, conversant Post-Hemodialysis Assessment Report given to Prim RN Problem: Hemodialysis Goal: Safe, Effective Therapy Delivery Outcome: Progressing Goal: Effective Tissue Perfusion Outcome: Progressing Goal: Absence of Infection Signs and Symptoms Outcome: Progressing During [facility] on 02/17/2025 the following interventions for Monitoring and Managing Fluid Electrolyte/Acid Base Balance were completed: Monitor intake and output. Monitor daily weight. Enforce fluid restriction. Manage electrolyte shifts and resulting effect. Assess presence/location of edema. During [facility] on 02/17/2025 the following interventions to Protect/Monitor Dialysis Line/Access Site were completed: Inspect and monitor dialysis line and access site. Change dressing and caps per protocol Educate patient on home care, and reportable symptoms During [facility] on 02/17/2025 the following interventions for Prevent/Manage Dialysis Procedure Complication were completed: Ensure system correctly primed, connections secure, and air detector alarms engaged. Verify correct machine setting with physician order. Assure proper dialysate conductivity and water quality prior to starting treatment Closely monitor patient throughout for tolerance to treatment Requested that pt do walk of life with staff. Pt refused saying that he was to weak to walk today. Since pt is not leaving today will attempt to do walk of like again tomorrow when his is here. Brief GI/Hepatology update [facility] is a 74 y.o. 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 Colonoscopy 02/16/25 Impression: - Moderate stenosis and ulceration in the sigmoid colon. Due to concern for possible ischemic bowel, the moderate stenosis was not traversed. Biopsied. - Myochosis in sigmoid colon - Bleeding external and internal hemorrhoids. EGD 02/16/25 Impression: - Z-line regular, 43 cm from the incisors. - Normal esophagus. - 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 gastropathy. - Normal examined duodenum. - No specimens collected. Recommendation: - Resume previous diet. - Continue present medications. - Await pathology results. - Repeat colonoscopy date to be determined after pending pathology results are reviewed for surveillance based on pathology results and for surveillance based on clinical status at that time - No endoscopic indication for PPI - Please place referral for outpatient GI - We will sign off Discussed with Dr. Jordan, attending physician Please reach out with any questions. Tia Billingsley MD Fellow, Gastroenterology 02/16/25 1725 Tx Assessment/Safety (Pre/Post) Post Procedure Bleach Disinfectant? No Blood Liters Processed (BLP) 67.1 Transport Modality bed Dialyzer Clearance moderate;streaked Tolerance to Dialysis Procedure Tolerated well with systolic bp in the 90's most of the session. Treatment Assessment Fluid Removed/mL: 2300 ml Machine Temperature 96.8 F (36 C) Crit Line - Hematocrit 25.8 % Crit Line - Hemoglobin 8.8 g/dL Crit Line - Blood Volume % -11.4 % Crit Line - SvO2 55 % Profile B Hemodialysis, Lines Secure/Site Visible Yes Hemodialysis, Safety Factors no supplemental oxygenation needed;vital signs stable;access site visible and intact Vital Signs Temp 97.7 F (36.5 C) Temp source Axillary Pulse (Heart Rate) 69 Heart Rate Source Monitor Resp Rate 24 BP 90/49 MAP (mmHg) 65 mmHg BP Method Automatic BP Location Left arm BP Position Lying O2 Sat (%) 98 % O2 Device room air Flow (L/min) 0 Tunneled Central Line - Double Lumen 10/10/21 1116 red white internal jugular vein, right other (see comments) Placement Date/Time: 10/10/21 1116 Present On Admission : yes Placement Over Guidewire: yes Lumen 1: red Lumen 2: white Location: internal jugular vein, right Device/Lot Number: dialysis/apheresis catheter Size/Length: (c) other (see comments)... Insertion Site WDL WDL Site Signs/Symptoms dressing dry and intact;site asymptomatic Site Preparation/Maintenance site cleansed: 70% alcohol;dressing: dry and intact (alcohol to tegos) Date Dressing Changed 02/16/25 Lumen 1 Patency/Maintenance flushed without difficulty Lumen 2 Patency/Maintenance flushed without difficulty Indication/Daily Review of Necessity hemodialysis Treatment Record Start Time 1426 Stop Time 1725 Fluid Volume Removal 2300 Total Fluid Given 300 Returning to Patient Care Unit Transport Testing Complete yes NPO no Additional Restrictions none Changes In Status no [place] Procedure Orders Written no Sending RN/Tech Name Ivan POWERS Phone [phone] Returning to Patient Care Unit Transport yes LOC/Significant Event RASS (Crain Agitation-Sedation Scale) 0-->alert and calm Significant Event HD tx completed. Post-Hemodialysis Assessment Report given to To Nalini POWERS 3 hour HD tx completed. Blood returned. NET UF=2kgs. SIM=750wx/min. No medications administered. Stable tx with soft bp, systolic in the 90's most of session. Alert and oriented X4. Planning a 3 hour dialysis session today with 2kgs to be removed. During [facility] on 02/16/2025 the following interventions to Protect/Monitor Dialysis Line/Access Site were completed: Inspect and monitor dialysis line and access site. Change dressing and caps per protocol Educate patient on home care, and reportable symptoms During [facility] on 02/16/2025 the following interventions for Monitoring and Managing Fluid Electrolyte/Acid Base Balance were completed: Monitor intake and output. Monitor daily weight. Enforce fluid restriction. Manage electrolyte shifts and resulting effect. Assess presence/location of edema. Problem: Adult Inpatient Plan of Care Goal: Optimal Comfort and Wellbeing Outcome: Progressing Goal: Readiness for Transition of Care Outcome: Progressing Problem: Hemodialysis Goal: Effective Tissue Perfusion Outcome: Progressing Goal: Absence of Infection Signs and Symptoms Outcome: Progressing Problem: Breathing Pattern Ineffective Goal: Effective Breathing Pattern Outcome: Progressing Per Farrah with [facility] micro lab ([phone]) who states blood cultures drawn 01/2725 have no growth. Expected to finalize tomorrow. Notified hospitalist Dr Rizo. Siobhan Fern[place] [phone] Report called to Nalini Webber updated on patient status post procedure. MD Serrano notified that patients BM at 0300 was yellow liquid with some particles and picture was uploaded into media. also notified that patient had finished initial 4000mL of colonoscopy prep. This RN asked if patient needed to receive PRN Golytely dose. declined PRN dose stating BM did not have any stool in it and it would be fine. Problem: Adult Inpatient Plan of Care Goal: Plan of Care Review Outcome: Progressing Goal: Patient-Specific Goal (Individualized) Outcome: Progressing Goal: Absence of Hospital-Acquired Illness or Injury Outcome: Progressing Goal: Optimal Comfort and Wellbeing Outcome: Progressing Goal: Readiness for Transition of Care Outcome: Progressing Problem: Adult Inpatient Plan of Care Goal: Optimal Comfort and Wellbeing Outcome: Progressing Problem: Breathing Pattern Ineffective Goal: Effective Breathing Pattern Outcome: Progressing RPP + for human metapneumo virus will place required contact and droplet precautions. Linn Serrano MD Overnight cross covering physician [phone] Problem: Breathing Pattern Ineffective Goal: Effective Breathing Pattern Outcome: Progressing Intervention: Promote Improved Breathing Pattern Flowsheets (Taken 02/14/2025 1112) Head of Bed (HOB) Positioning: HOB at 30-45 degrees Thoracic Surgery Updated Plan of Care Thoracic surgery was engaged yesterday for concern for left empyema. Poor surgical candidate so we recommended pulmonology and IR consideration. Per pulmonology, chronic collection is unlikely to be source of symptoms and did not show great improvement with drainage on previous presentations. As such tube placement was deferred which is reasonable. - Patient is not a surgical candidate for VATS in setting of significant surgical history and comorbidities. - Defer further management to pulmonology and primary service - Thoracic surgery will sign off at this time. Plan discussed with attending Dr. Nash. Please do not hesitate to reach out if new questions or concerns arise. Please identify the Thoracic Surgery consult resident section hand via [employer]. The signwriter of this note may not be the resident section hand or available for immediate responses. Thank you for allowing us to participate in the excellent care of this patient. Kenrick Lopez MD Cardiothoracic Surgery PGY-2 #[id number] Overnight Call: Previous Progress Notes and/or H&P Reviewed. Informed that pt with pt has twitching of face states a little more since HD done but his body was twitching then and not so much now. we are getting ready to draw PTT (heparin gtt) and am labs do you want anything added? - advised RN to get chem 7 earlier and added calcium and mag. No further reports of twitching. Linn Serrano MD Overnight cross covering physician [phone] Problem: Adult Inpatient Plan of Care Goal: Absence of Hospital-Acquired Illness or Injury Outcome: Progressing Goal: Optimal Comfort and Wellbeing Outcome: Progressing 02/13/25 1840 Tx Assessment/Safety (Pre/Post) Less Than 30 Days Hepatitis B Surface Antigen Status Negative Hepatitis B Surface Antigen Resulted From [facility] lab Date Hepatitis B Surface Antigen Status Obtained 02/13/25 Transport Modality bed Dialyzer Clearance moderate;streaked Tolerance to Dialysis Procedure Tolerated well with pt's desired UF goal of 1kg. Treatment Assessment Fluid Removed/mL: 1300 ml Machine Temperature 96.8 F (36 C) Crit Line - Hematocrit 25.2 % Crit Line - Hemoglobin 8.6 g/dL Crit Line - Blood Volume % -8.7 % Crit Line - SvO2 50.3 % Profile B Hemodialysis, Lines Secure/Site Visible Yes Hemodialysis, Safety Factors supplemental oxygenation;access site visible and intact;vital signs stable Hemodialysis, Comments (3 hour HD tx completed. Blood returned. NET UF=1kg.) Vital Signs Temp 97.6 F (36.4 C) Temp source Oral Pulse (Heart Rate) 76 Heart Rate Source Monitor Resp Rate 18 BP 110/53 MAP (mmHg) 77 mmHg BP Method Automatic BP Location Right arm BP Position Lying O2 Sat (%) 99 % O2 Device nasal cannula Flow (L/min) 2 Tunneled Central Line - Double Lumen 10/10/21 1116 red white internal jugular vein, right other (see comments) Placement Date/Time: 10/10/21 111 Present On Admission : yes Placement Over Guidewire: yes Lumen 1: red Lumen 2: white Location: internal jugular vein, right Device/Lot Number: dialysis/apheresis catheter Size/Length: (c) other (see comments)... Insertion Site WDL WDL Site Signs/Symptoms dressing dry and intact;site asymptomatic Site Preparation/Maintenance site cleansed: 70% alcohol (alcohol to tegos) Lumen 1 Patency/Maintenance flushed without difficulty Lumen 2 Patency/Maintenance flushed without difficulty Indication/Daily Review of Necessity hemodialysis Treatment Record Start Time 1537 Stop Time 1840 Fluid Volume Removal 1300 Total Fluid Given 300 Returning to Patient Care Unit Transport Testing Complete yes NPO no O2 NC Additional Restrictions none Changes In Status no [place] Procedure Orders Written no Sending RN/Tech Name Ivan POWERS Phone [phone] Returning to Patient Care Unit Transport yes LOC/Significant Event RASS (Crain Agitation-Sedation Scale) 0-->alert and calm Significant Event HD tx completed. Post-Hemodialysis Assessment Report given to Report to Adiel POWERS 3 hour HD tx completed. Blood returned. NET UF=1kg per pt request. States usually it's 0.5-1kg. AJQ=125pr/min. Coumadin 2mg and Heparin drip started at 12units/kg/hr. Stable tx. Planning a 3 hour HD tx with 2kgs to be removed. During [facility] Treatment on 02/13/2025 the following interventions to Protect/Monitor Dialysis Line/Access Site were completed: Inspect and monitor dialysis line and access site. Change dressing and caps per protocol Educate patient on home care, and reportable symptoms During [facility] Treatment on 02/13/2025 the following interventions for Monitoring and Managing Fluid Electrolyte/Acid Base Balance were completed: Monitor intake and output. Monitor daily weight. Enforce fluid restriction. Manage electrolyte shifts and resulting effect. Assess presence/location of edema. Interventional Plan of Care Note After Pulmonary evaluated, it was determined that the effusion was chronic and does not require chest tube placement. Will cancel chest tube placement. Please reach out to IR if this changes. Shana Lew MD Diagnostic Radiology PGY3 R2 Images from the original note were not included. On admission to [facility], from outside facility a dual RN initial assessment of skin condition was performed by Adiel Olvera RN and Linh Mcconnell RN. Skin Assessment: Skin not within defined limits. - Wound(s) identified: Yes - Photo taken and uploaded into notes in [facility]: Yes Fabian Score: 19 LDA Added:Yes Adiel Olvera RN documented in this encounter [facility] 03-06-2025 Miscellaneous Notes Summary: discharge Patient discharge instructions reviewed, to include follow-up scheduling, discharge medications and changes to home medications, discharge plans. IV removed; patient denies any questions. Patient discharged in stable condition, by wheelchair, accompanied by RN Tunneled HD CVC used for HD treatment, adequate flows on machine, able to achieve pump speed: 400 ml/min blood flow rate. Net 1705 ml removed over 3.5hours; BLP 82.3. Average Crit Line Profile A-B. Pt tolerated well with VSS - No LOC changes/concerns. No behavioral issues during tx. - Pt in AV paced Rhythm, no changes in rhythm during tx. - Dialyzer Clearance:Moderate. - No medication administered. 03/06/25 1335 Tx Assessment/Safety (Pre/Post) Post Procedure Bleach Disinfectant? No Blood Liters Processed (BLP) 76.9 Transport Modality bed Dialyzer Clearance moderate Tolerance to Dialysis Procedure Patient goal decreased for BP support. Patient had emesis of about 20 ml while on HD. Net removal 1705 Treatment Assessment Machine Temperature 96.8 F (36 C) Crit Line - Hematocrit 35 % Crit Line - Hemoglobin 11.9 g/dL Crit Line - Blood Volume % -10 % Crit Line - SvO2 39.2 % Hemodialysis, Lines Secure/Site Visible Yes Hemodialysis, Safety Factors no supplemental oxygenation needed;access site visible and intact Hemodialysis, Comments patient tolerating treatment well;resting with stable VS, no complaints (Treatment end blood returned) Vital Signs Temp 97.8 F (36.6 C) Temp source Oral Pulse (Heart Rate) 71 Resp Rate (!) 27 BP 91/48 MAP (mmHg) 68 mmHg O2 Sat (%) 99 % ECG/Rhythm Lead Monitored Lead II Rhythm A-V sequential paced Tunneled Central Line - Double Lumen 10/10/21 1116 red white internal jugular vein, right other (see comments) Placement Date/Time: 10/10/21 111 Present On Admission : yes Placement Over Guidewire: yes Lumen 1: red Lumen 2: white Location: internal jugular vein, right Device/Lot Number: dialysis/apheresis catheter Size/Length: (c) other (see comments)... Insertion Site WDL WDL Site Signs/Symptoms dressing dry and intact;site asymptomatic Site Preparation/Maintenance site cleansed: chlorhexidine solution;site cleansed: 70% alcohol;dressing: transparent semipermeable;dressing: antimicrobial;dressing: dry and intact Date Dressing Changed 03/02/25 Securement sutures, secured with Lumen 1 Patency/Maintenance flushed without difficulty Date Lumen 1 Cap/Connector Changed/Applied 03/06/25 Lumen 2 Patency/Maintenance flushed without difficulty Date Lumen 2 Cap/Connector Changed/Applied 03/06/25 Indication/Daily Review of Necessity hemodialysis Treatment Record Start Time 1000 Stop Time 1335 Initiation air foam detector engaged;all connections secured;parameters set, arterial;parameters set, venous;prime given (specify mL);saline line double clamped Fluid Volume Removal 2004 Total Fluid Given 300 Returning to Patient Care Unit Transport Testing Complete yes NPO no O2 (Room air) Changes In Status no [place] Procedure Orders Written no Sending RN/Tech Name Alyssa Phone [phone] Returning to Patient Care Unit Transport yes General Pain Documentation (Adult, OB, Peds) Presence of Pain denies pain/discomfort Presence of Pain Score (Auto-calculated) 0 LOC/Significant Event RASS (Crain Agitation-Sedation Scale) 0-->alert and calm Significant Event HD treatment end Post-Hemodialysis Assessment Report given to GIO Donnelly Problem: Hemodialysis Goal: Safe, Effective Therapy Delivery Outcome: Progressing Goal: Effective Tissue Perfusion Outcome: Progressing Goal: Absence of Infection Signs and Symptoms Outcome: Progressing iHD tx ordered x 3.5 hrs. Plan to remove 2 kg as pt tolerates.. Pt on 2K bath as ordered, K+ of 5.1 on 03/06/2025. During [facility] Treatment on 03/06/2025 the following interventions for Prevent/Manage Dialysis Procedure Complication were completed: Ensure system correctly primed, connections secure, and air detector alarms engaged. Verify correct machine setting with physician order. Assure proper dialysate conductivity and water quality prior to starting treatment Closely monitor patient throughout for tolerance to treatment During [facility] on 03/06/2025 the following interventions to Protect/Monitor Dialysis Line/Access Site were completed: Inspect and monitor dialysis line and access site. Change dressing and caps per protocol Educate patient on home care, and reportable symptoms During [facility] Treatment on 03/06/2025 the following interventions for Prevent/Manage Dialysis Procedure Complication were completed: Ensure system correctly primed, connections secure, and air detector alarms engaged. Verify correct machine setting with physician order. Assure proper dialysate conductivity and water quality prior to starting treatment Closely monitor patient throughout for tolerance to treatment Problem: Infection Goal: Absence of Infection Signs and Symptoms Outcome: Progressing Problem: Fall Injury Risk Goal: Fall/Trauma/Injury Risk: Absence of Trauma/Injury/Falls Description: Patient will demonstrate the desired outcomes. Outcome: Progressing Problem: Pain Acute Goal: Optimal Pain Control and Function Outcome: Progressing During [facility] Treatment on 03/04/2025 the following interventions for Prevent/Manage Dialysis Procedure Complication were completed: Ensure system correctly primed, connections secure, and air detector alarms engaged. Verify correct machine setting with physician order. Assure proper dialysate conductivity and water quality prior to starting treatment Closely monitor patient throughout for tolerance to treatment During [facility] Treatment on 03/04/2025 the following interventions for Monitoring and Managing Fluid Electrolyte/Acid Base Balance were completed: Monitor intake and output. Monitor daily weight. Enforce fluid restriction. Manage electrolyte shifts and resulting effect. Assess presence/location of edema. During [facility] Treatment on 03/04/2025 the following interventions to Protect/Monitor Dialysis Line/Access Site were completed: Inspect and monitor dialysis line and access site. Change dressing and caps per protocol Educate patient on home care, and reportable symptoms 03/04/25 1355 Tx Assessment/Safety (Pre/Post) Blood Liters Processed (BLP) 74.2 Transport Modality bed Dialyzer Clearance moderate Tolerance to Dialysis Procedure Tolerated tx well, 2L UF removed. Off 10 min early d/t transport early arrival. Treatment Assessment UF Goal/mL: 2300 Fluid Removed/mL: 2300 ml Profile B Hemodialysis, Lines Secure/Site Visible Yes Hemodialysis, Safety Factors vital signs stable Vital Signs Temp 97.5 F (36.4 C) Pulse (Heart Rate) 71 Resp Rate (!) 26 BP 103/52 MAP (mmHg) 73 mmHg O2 Sat (%) 100 % ECG/Rhythm Lead Monitored Lead II Rhythm ventricular paced Tunneled Central Line - Double Lumen 10/10/21 1116 red white internal jugular vein, right other (see comments) Placement Date/Time: 10/10/21 111 Present On Admission : yes Placement Over Guidewire: yes Lumen 1: red Lumen 2: white Location: internal jugular vein, right Device/Lot Number: dialysis/apheresis catheter Size/Length: (c) other (see comments)... Insertion Site WDL WDL Lumen 1 Patency/Maintenance flushed without difficulty Date Lumen 1 Cap/Connector Changed/Applied 03/04/25 Lumen 2 Patency/Maintenance flushed without difficulty Date Lumen 2 Cap/Connector Changed/Applied 03/04/25 Indication/Daily Review of Necessity hemodialysis Treatment Record Stop Time 1355 Fluid Volume Removal 2300 Total Fluid Given 300 Returning to Patient Care Unit Transport Testing Complete yes Changes In Status no [place] Procedure Orders Written no Sending RN/Tech Name Kenn POWERS Returning to Patient Care Unit Transport yes Cognitive/Neuro/Behavioral WDL Cognitive/Neuro/Behavioral WDL WDL Cardiovascular WDL Cardiac WDL ex;heart sounds Heart Sounds valve click Respiratory WDL Respiratory WDL ex;breath sounds Breath Sounds All Lung Chavez Breath Sounds diminished LOC/Significant Event RASS (Crain Agitation-Sedation Scale) 0-->alert and calm Significant Event HD completed. Post-Hemodialysis Assessment Report given to GIO Douglas Pt next PTT is due at 1415. HD RN accidentally draw pt PTT whiles the pt is at HD and it was 113.6. Per sliding scale, If PTT is 112-126, hold infusion for 60 minutes and decrease dose by 2 units/kg/hr. DO you want me to hold the heparin drip or let it run and draw the right PTT, which is due at 1415. MD Aldana notified. During [facility] on 03/04/2025 the following interventions for Monitoring and Managing Fluid Electrolyte/Acid Base Balance were completed: Monitor intake and output. Monitor daily weight. Enforce fluid restriction. Manage electrolyte shifts and resulting effect. Assess presence/location of edema. During [facility] on 03/04/2025 the following interventions for Prevent/Manage Dialysis Procedure Complication were completed: Ensure system correctly primed, connections secure, and air detector alarms engaged. Verify correct machine setting with physician order. Assure proper dialysate conductivity and water quality prior to starting treatment Closely monitor patient throughout for tolerance to treatment During [facility] on 03/04/2025 the following interventions to Protect/Monitor Dialysis Line/Access Site were completed: Inspect and monitor dialysis line and access site. Change dressing and caps per protocol Educate patient on home care, and reportable symptoms The blood culture order from the line was mistakenly marked as collected by the VICE PRESIDENT [employer] GENERAL [employer] [place], but it was not collected properly. Dr. Mel Aldana was notified and a re-order was requested. Problem: Adult Inpatient Plan of Care Goal: Plan of Care Review Outcome: Progressing Goal: Patient-Specific Goal (Individualized) Outcome: Progressing Goal: Absence of Hospital-Acquired Illness or Injury Outcome: Progressing Goal: Optimal Comfort and Wellbeing Outcome: Progressing Goal: Readiness for Transition of Care Outcome: Progressing HD Treatment Note iHD treatment complete, blood returned. Lines clamped and capped. Treatment Length: 3.5 hours; Bath Used: 3K; Blood Pump: adequate flows on machine, able to achieve BFR of 400 ml/min; Net Removed: 2 kg; BLP: 78.2. Average Crit Line Profile A/B. Tolerance: Pt tolerated treatment well with no interventions. Access: Right IJ Tunneled HD Line. Access Concerns: Pt has two small skin tears under the window dressing to his TDC. Small amounts of blood still seeping from tears, so sterile 2x2 gauze placed under window and Kristina TAKE AWAY WORKER, consulted. Art [employer] Yovani pressures were mildly elevated throughout tx. Dr. Jordan Uriarte notified, pt might benefit from TPA dwell prior to next tx. Cognition: Baseline: Oriented x 4. Changes: No LOC changes/concerns. Behavior: No behavioral issues during tx. Cardiac: Baseline: V-Paced.. Changes during tx: None Dialyzer Clearance: Clear. Medication: No medication administered. Report given to Stella Clemons RN. HD RN remained at bedside for duration of treatment. Pt stable upon departure from Dialysis Unit. 03/02/25 1430 Machine Checks Station/Room Number [id number] Tx Assessment/Safety (Pre/Post) Blood Liters Processed (BLP) 78.2 Transport Modality bed Dialyzer Clearance clear Tolerance to Dialysis Procedure well Treatment Assessment Blood Flow Rate (BFR) mL/min 400 Dialysate Flow Rate (DFR) mL/min 800 mL/min Arterial Pressure (AP) mmHg -250 Venous Pressure (FITNESS/WELLNESS DIRECTOR) mmHg 200 Transmembrane Pressure (TMP) mmHg 40 UF Goal/mL: 2300 Ultrafiltration Rate (UFR) mL/hr 750 Fluid Removed/mL: 2300 ml Machine Temperature 95.9 F (35.5 C) Crit Line - Hematocrit 30.6 % Crit Line - Hemoglobin 10.4 g/dL Crit Line - Blood Volume % -9.8 % Crit Line - SvO2 45.9 % Profile B Hemodialysis, Lines Secure/Site Visible Yes Hemodialysis, Safety Factors vital signs stable;access site visible and intact;no supplemental oxygenation needed Hemodialysis, Comments patient tolerating treatment well;resting with stable VS, no complaints Vital Signs Temp 97.6 F (36.4 C) Temp source Axillary Pulse (Heart Rate) 71 Heart Rate Source Monitor Resp Rate 23 BP 95/48 MAP (mmHg) 69 mmHg BP Method Automatic BP Location Left arm BP Position Lying O2 Sat (%) 100 % O2 Device room air ECG/Rhythm Lead Monitored Lead II Rhythm ventricular paced Tunneled Central Line - Double Lumen 10/10/21 1116 red white internal jugular vein, right other (see comments) Placement Date/Time: 10/10/21 1116 Present On Admission : yes Placement Over Guidewire: yes Lumen 1: red Lumen 2: white Location: internal jugular vein, right Device/Lot Number: dialysis/apheresis catheter Size/Length: (c) other (see comments)... Insertion Site WDL WDL Site Signs/Symptoms dressing dry and intact;site asymptomatic Site Preparation/Maintenance dressing: dry and intact Treatment Record Start Time 1055 Stop Time 1427 Fluid Volume Removal 2300 Total Fluid Given 300 Returning to Patient Care Unit Transport Testing Complete yes Additional Restrictions no Changes In Status no [place] Procedure Orders Written no Sending RN/Tech Name GIO Paulson Phone [phone] Returning to Patient Care Unit Transport yes Cognitive/Neuro/Behavioral WDL Cognitive/Neuro/Behavioral WDL WDL Motor Response (unassessed) Cardiovascular WDL Cardiac WDL ex Heart Sounds valve click Respiratory WDL Respiratory WDL ex Breath Sounds All Lung Chavez Breath Sounds diminished Genitourinary WDL Genitourinary WDL ex Voiding Characteristics patient on hemodialysis Safety Patient Safety WDL WDL Patient Safety Factors side rails raised x 3;bed in low position;wheels locked;call light in reach;ID band on;sitter/caregiver at bedside (HD RN remained at bedside for duration of tx) Infection Prevention personal protective equipment utilized;hand hygiene promoted;equipment surfaces disinfected Isolation Precautions contact precautions maintained;droplet precautions maintained Safety Management Safety Promotion/Fall Prevention clutter-free environment maintained;fall prevention program maintained General Pain Documentation (Adult, OB, Peds) Presence of Pain denies pain/discomfort Presence of Pain Score (Auto-calculated) 0 LOC/Significant Event RASS (Crain Agitation-Sedation Scale) 0-->alert and calm Significant Event iHD complete, pt off circ Post-Hemodialysis Assessment Report given to Stella Clemons RN Problem: Hemodialysis Goal: Safe, Effective Therapy Delivery Outcome: Progressing Goal: Effective Tissue Perfusion Outcome: Progressing Goal: Absence of Infection Signs and Symptoms Outcome: Progressing iHD tx ordered x 3.5 hrs. Plan to remove 2 kg as pt tolerates. Last iHD tx was 02/28/2025. Pt on 3K bath as ordered, K+ of 4.6 on 03/02/2025. During [facility] on 03/02/2025 the following interventions for Prevent/Manage Dialysis Procedure Complication were completed: Ensure system correctly primed, connections secure, and air detector alarms engaged. Verify correct machine setting with physician order. Assure proper dialysate conductivity and water quality prior to starting treatment Closely monitor patient throughout for tolerance to treatment During [facility] on 03/02/2025 the following interventions to Protect/Monitor Dialysis Line/Access Site were completed: Inspect and monitor dialysis line and access site. Change dressing and caps per protocol Educate patient on home care, and reportable symptoms During [facility] on 03/02/2025 the following interventions for Prevent/Manage Dialysis Procedure Complication were completed: Ensure system correctly primed, connections secure, and air detector alarms engaged. Verify correct machine setting with physician order. Assure proper dialysate conductivity and water quality prior to starting treatment Closely monitor patient throughout for tolerance to treatment Problem: Infection Goal: Absence of Infection Signs and Symptoms Outcome: Progressing Problem: Fall Injury Risk Goal: Fall/Trauma/Injury Risk: Absence of Trauma/Injury/Falls Description: Patient will demonstrate the desired outcomes. Outcome: Progressing Goal: Knowledge of risk factors/behavior modification Description: Knowledge of risk factors/behavior modification for fall/injury prevention Outcome: Progressing 02/28/251918 Tx Assessment/Safety (Pre/Post) Blood Liters Processed (BLP) 77.3 Transport Modality bed Dialyzer Clearance clear Tolerance to Dialysis Procedure tolerated tx well. 2.7 L net fluid removal in 3.5 hours. got Midodrine prior to HD. BP was stable until the very end when it dropped into the 80s systolic (pt asymptoamtic - BP stabilizaed post tx). pt's dressing was bloody when he arrived to tx with drainage coming from two separate skin tears above the insertion site (pictures in media file). this RN notified dr stiles and swabbed for infection and chris blood cultures x1 from the line. pressure dressing applied to contain bleeding. no signs of bleeding post tx - no blood in dressing Treatment Assessment Fluid Removed/mL: 2958 ml Hemodialysis, Comments (off circ) Vital Signs Temp 97.7 F (36.5 C) Temp source Axillary Heart Rate Source Monitor BP 98/51 BP Method Automatic BP Location Left arm BP Position Lying O2 Sat (%) 100 % O2 Device room air Treatment Record Stop Time 1918 Fluid Volume Removal 2958 Total Fluid Given 300 Safety Patient Safety WDL WDL Patient Safety Factors bed in low position;call light in reach;ID band on;side rails raised x 4;wheels locked General Pain Documentation (Adult, OB, Peds) Presence of Pain denies pain/discomfort Presence of Pain Score (Auto-calculated) 0 Post-Hemodialysis Assessment Report given to abraham lundberg During [facility] on 02/28/2025 the following interventions for Prevent/Manage Dialysis Procedure Complication were completed: Ensure system correctly primed, connections secure, and air detector alarms engaged. Verify correct machine setting with physician order. Assure proper dialysate conductivity and water quality prior to starting treatment Closely monitor patient throughout for tolerance to treatment During [facility] on 02/28/2025 the following interventions for Monitoring and Managing Fluid Electrolyte/Acid Base Balance were completed: Monitor intake and output. Monitor daily weight. Enforce fluid restriction. Manage electrolyte shifts and resulting effect. Assess presence/location of edema. During [facility] on 02/28/2025 the following interventions to Protect/Monitor Dialysis Line/Access Site were completed: Inspect and monitor dialysis line and access site. Change dressing and caps per protocol Educate patient on home care, and reportable symptoms Pt PTT is due but pt is at HD. Told Adriel HD RN about the PTT and he said he will draw it. Problem: Adult Inpatient Plan of Care Goal: Plan of Care Review Outcome: Progressing Goal: Absence of Hospital-Acquired Illness or Injury Outcome: Progressing Goal: Optimal Comfort and Wellbeing Outcome: Progressing Problem: Hemodialysis Goal: Safe, Effective Therapy Delivery Outcome: Progressing Goal: Effective Tissue Perfusion Outcome: Progressing Goal: Absence of Infection Signs and Symptoms Outcome: Progressing Problem: Breathing Pattern Ineffective Goal: Effective Breathing Pattern Outcome: Progressing 02/26/25 1032 Tx Assessment/Safety (Pre/Post) Blood Liters Processed (BLP) 65.4 Transport Modality bed Dialyzer Clearance moderate Tolerance to Dialysis Procedure Well, 2L UF. Vital Signs Temp 97.6 F (36.4 C) Temp source Oral Pulse (Heart Rate) 75 Resp Rate (!) 34 BP 101/51 MAP (mmHg) 73 mmHg O2 Sat (%) 99 % Treatment Record Start Time 0732 Stop Time 1032 Fluid Volume Removal 2400 Total Fluid Given 400 Returning to Patient Care Unit Transport Testing Complete yes NPO no Additional Restrictions no Changes In Status no [place] Procedure Orders Written no Sending RN/Tech Name Jordi POWERS Returning to Patient Care Unit Transport yes LOC/Significant Event Significant Event iHD completed Post-Hemodialysis Assessment Report given to Primary RN Problem: Hemodialysis Goal: Safe, Effective Therapy Delivery Outcome: Progressing During [facility] on 02/26/2025 the following interventions for Monitoring and Managing Fluid Electrolyte/Acid Base Balance were completed: Monitor intake and output. Monitor daily weight. Enforce fluid restriction. Manage electrolyte shifts and resulting effect. Assess presence/location of edema. During [facility] on 02/26/2025 the following interventions for Prevent/Manage Dialysis Procedure Complication were completed: Ensure system correctly primed, connections secure, and air detector alarms engaged. Verify correct machine setting with physician order. Assure proper dialysate conductivity and water quality prior to starting treatment Closely monitor patient throughout for tolerance to treatment During [facility] on 02/26/2025 the following interventions to Protect/Monitor Dialysis Line/Access Site were completed: Inspect and monitor dialysis line and access site. Change dressing and caps per protocol Educate patient on home care, and reportable symptoms Problem: Adult Inpatient Plan of Care Goal: Absence of Hospital-Acquired Illness or Injury Outcome: Progressing Goal: Optimal Comfort and Wellbeing Outcome: Progressing Problem: Breathing Pattern Ineffective Goal: Effective Breathing Pattern Outcome: Progressing A dual assessment of skin condition was performed by this signwriter and Bonnie Layton RN> Skin Assessment: Skin not within defined limits. - Photo taken and uploaded into notes in [facility]: Yes Fabian Score: 19 LDA Added:No Stella Swenson RN 02/25/25 1057 Tx Assessment/Safety (Pre/Post) Blood Liters Processed (BLP) 66.8 Transport Modality bed Dialyzer Clearance moderate Tolerance to Dialysis Procedure Well. 1.7L UF per crit line/vitals. Treatment Assessment Fluid Removed/mL: 2000 ml Vital Signs Pulse (Heart Rate) 69 Resp Rate (!) 31 BP 97/49 MAP (mmHg) 70 mmHg O2 Sat (%) 99 % Treatment Record Start Time 0756 Stop Time 1057 Fluid Volume Removal 2000 Total Fluid Given 300 Returning to Patient Care Unit Transport Testing Complete yes NPO no Additional Restrictions no Changes In Status no [place] Procedure Orders Written no Sending RN/Tech Name Jordi POWERS Returning to Patient Care Unit Transport yes LOC/Significant Event Significant Event iHD completed Post-Hemodialysis Assessment Report given to Primary RN Problem: Hemodialysis Goal: Safe, Effective Therapy Delivery Outcome: Progressing During [facility] on 02/25/2025 the following interventions for Monitoring and Managing Fluid Electrolyte/Acid Base Balance were completed: Monitor intake and output. Monitor daily weight. Enforce fluid restriction. Manage electrolyte shifts and resulting effect. Assess presence/location of edema. During [facility] on 02/25/2025 the following interventions for Prevent/Manage Dialysis Procedure Complication were completed: Ensure system correctly primed, connections secure, and air detector alarms engaged. Verify correct machine setting with physician order. Assure proper dialysate conductivity and water quality prior to starting treatment Closely monitor patient throughout for tolerance to treatment During [facility] on 02/25/2025 the following interventions to Protect/Monitor Dialysis Line/Access Site were completed: Inspect and monitor dialysis line and access site. Change dressing and caps per protocol Educate patient on home care, and reportable symptoms Problem: Adult Inpatient Plan of Care Goal: Plan of Care Review Outcome: Progressing Goal: Patient-Specific Goal (Individualized) Outcome: Progressing Goal: Absence of Hospital-Acquired Illness or Injury Outcome: Progressing Problem: Hemodialysis Goal: Safe, Effective Therapy Delivery Outcome: Progressing Goal: Effective Tissue Perfusion Outcome: Progressing Goal: Absence of Infection Signs and Symptoms Outcome: Progressing Problem: Breathing Pattern Ineffective Goal: Effective Breathing Pattern Outcome: Progressing 02/23/25 1730 Tx Assessment/Safety (Pre/Post) Blood Liters Processed (BLP) 76.4 Transport Modality bed Dialyzer Clearance moderate Tolerance to Dialysis Procedure Well with 2L UF off. Profile A/B throughout tx. Treatment Assessment Blood Flow Rate (BFR) mL/min 400 Dialysate Flow Rate (DFR) mL/min 800 mL/min Arterial Pressure (AP) mmHg -230 Venous Pressure (FITNESS/WELLNESS DIRECTOR) mmHg 160 Transmembrane Pressure (TMP) mmHg 30 UF Goal/mL: 2300 Ultrafiltration Rate (UFR) mL/hr 660 Fluid Removed/mL: 2300 ml Machine Temperature 95.9 F (35.5 C) Crit Line - Hematocrit 27.6 % Crit Line - Hemoglobin 9.4 g/dL Crit Line - Blood Volume % -8 % Crit Line - SvO2 60.4 % Profile A Hemodialysis, Lines Secure/Site Visible Yes Hemodialysis, Safety Factors vital signs stable;access site visible and intact Hemodialysis, Comments patient tolerating treatment well;resting with stable VS, no complaints Vital Signs Temp 97.5 F (36.4 C) Temp source Oral Pulse (Heart Rate) 70 Heart Rate Source Monitor Resp Rate (!) 26 BP 97/51 MAP (mmHg) 72 mmHg BP Method Automatic BP Location Left arm BP Position Lying O2 Sat (%) 99 % O2 Device room air Tunneled Central Line - Double Lumen 10/10/21 111 red white internal jugular vein, right other (see comments) Placement Date/Time: 10/10/211115 Present On Admission : yes Placement Over Guidewire: yes Lumen 1: red Lumen 2: white Location: internal jugular vein, right Device/Lot Number: dialysis/apheresis catheter Size/Length: (c) other (see comments)... Insertion Site WDL WDL Site Signs/Symptoms site asymptomatic;dressing dry and intact Site Preparation/Maintenance dressing: changed Date Dressing Changed 02/23/25 Securement catheter securement device, secured with Lumen 1 Patency/Maintenance flushed without difficulty Date Lumen 1 Cap/Connector Changed/Applied 02/23/25 Lumen 2 Patency/Maintenance flushed without difficulty Date Lumen 2 Cap/Connector Changed/Applied 02/23/25 Indication/Daily Review of Necessity hemodialysis Treatment Record Start Time 1408 Stop Time 1738 Initiation air foam detector engaged;all connections secured;parameters set, arterial;parameters set, venous Fluid Volume Removal 2300 Total Fluid Given 300 Returning to Patient Care Unit Transport Testing Complete yes NPO no Additional Restrictions no Changes In Status no [place] Procedure Orders Written no Sending RN/Tech Name Juju POWERS Phone [phone] Returning to Patient Care Unit Transport yes Cognitive/Neuro/Behavioral WDL Cognitive/Neuro/Behavioral WDL WDL Safety Patient Safety WDL ex;safety factors Safety Management Safety Promotion/Fall Prevention safety round/check completed;fall prevention program maintained LOC/Significant Event RASS (Crain Agitation-Sedation Scale) 0-->alert and calm Significant Event HD completed Post-Hemodialysis Assessment Report given to Raissa POWERS During [facility] on 02/23/2025 the following interventions for Monitoring and Managing Fluid Electrolyte/Acid Base Balance were completed: Monitor intake and output. Monitor daily weight. Enforce fluid restriction. Manage electrolyte shifts and resulting effect. Assess presence/location of edema. During [facility] on 02/23/2025 the following interventions for Prevent/Manage Dialysis Procedure Complication were completed: Ensure system correctly primed, connections secure, and air detector alarms engaged. Verify correct machine setting with physician order. Assure proper dialysate conductivity and water quality prior to starting treatment Closely monitor patient throughout for tolerance to treatment During [facility] on 02/23/2025 the following interventions to Protect/Monitor Dialysis Line/Access Site were completed: Inspect and monitor dialysis line and access site. Change dressing and caps per protocol Educate patient on home care, and reportable symptoms 02/23/25 1402 Outlier Review Reviewing for: Outlier Meeting Medical Necessity: Yes Medical Necessity Summary: heparin gtt until INR therapeutic. Lovenox bridge not appropriate due to dialysis patient and mechanical mitral valve. Barriers: IV Drug Needs;Standard Treatment/Therapy Barrier(s) Comments: no discharge barriers. INR 1.1 today - goal 2.5-3.5 Intervention: No intervention needed;Discussion with team Ever is established w/a local coumadin clinic - will follow up there once INR is therapeutic. Juju Su RN Clinical Office Specialist Please note that I am a float floor care technician and may not cover the same service every day. Please call the main Care Management office at [phone] for up-to-date coverage. Problem: Adult Inpatient Plan of Care Goal: Plan of Care Review Outcome: Progressing Goal: Patient-Specific Goal (Individualized) Outcome: Progressing Goal: Absence of Hospital-Acquired Illness or Injury Outcome: Progressing Goal: Optimal Comfort and Wellbeing Outcome: Progressing Goal: Readiness for Transition of Care Outcome: Progressing Problem: Hemodialysis Goal: Safe, Effective Therapy Delivery Outcome: Progressing Goal: Effective Tissue Perfusion Outcome: Progressing Goal: Absence of Infection Signs and Symptoms Outcome: Progressing Problem: Breathing Pattern Ineffective Goal: Effective Breathing Pattern Outcome: Progressing Problem: Adult Inpatient Plan of Care Goal: Plan of Care Review Outcome: Progressing Goal: Patient-Specific Goal (Individualized) Outcome: Progressing Goal: Absence of Hospital-Acquired Illness or Injury Outcome: Progressing Goal: Optimal Comfort and Wellbeing Outcome: Progressing Goal: Readiness for Transition of Care Outcome: Progressing HD Treatment Note iHD treatment complete, blood returned. Lines clamped and capped. Treatment Length: 3.5 hours; Bath Used: 3K; Blood Pump: adequate flows on machine, able to achieve BFR of 400 ml/min; Net Removed: 2 kg; BLP: 77.3. Average Crit Line Profile A/B. Tolerance: Pt tolerated treatment well with no interventions. Access: Right IJ Tunneled HD Line; dressing and caps CDI. Access Concerns: No concerns with access noted. Cognition: Baseline: Oriented x 4. Changes: No LOC changes/concerns. Behavior: No behavioral issues during tx. Cardiac: Baseline: V-Paced.. Changes during tx: None Dialyzer Clearance: Moderate. Medication: Pt was given 10 mg Midodrine PO at start of iHD tx. Report given to Farrah Anthony RN, [phone]. HD RN remained at bedside for duration of treatment. Pt stable upon departure from Dialysis Unit. 02/21/25 1830 Machine Checks Station/Room Number [id number] Tx Assessment/Safety (Pre/Post) Blood Liters Processed (BLP) 77.3 Transport Modality bed Dialyzer Clearance moderate Tolerance to Dialysis Procedure well Treatment Assessment Blood Flow Rate (BFR) mL/min 400 Dialysate Flow Rate (DFR) mL/min 800 mL/min Arterial Pressure (AP) mmHg -190 Venous Pressure (FITNESS/WELLNESS DIRECTOR) mmHg 170 Transmembrane Pressure (TMP) mmHg 10 UF Goal/mL: 2300 Ultrafiltration Rate (UFR) mL/hr 780 Fluid Removed/mL: 2300 ml Machine Temperature 95.9 F (35.5 C) Crit Line - Hematocrit 27.1 % Crit Line - Hemoglobin 9.2 g/dL Crit Line - Blood Volume % -8.5 % Crit Line - SvO2 59.8 % Profile A Hemodialysis, Lines Secure/Site Visible Yes Hemodialysis, Safety Factors vital signs stable;access site visible and intact;no supplemental oxygenation needed Hemodialysis, Comments patient tolerating treatment well;resting with stable VS, no complaints Vital Signs Pulse (Heart Rate) 69 Heart Rate Source Monitor Resp Rate (!) 55 BP 104/51 MAP (mmHg) 74 mmHg BP Method Automatic BP Location Right arm BP Position Lying O2 Sat (%) 99 % O2 Device room air ECG/Rhythm Lead Monitored Lead II Rhythm ventricular paced Tunneled Central Line - Double Lumen 10/10/21 1116 red white internal jugular vein, right other (see comments) Placement Date/Time: 10/10/21 111 Present On Admission : yes Placement Over Guidewire: yes Lumen 1: red Lumen 2: white Location: internal jugular vein, right Device/Lot Number: dialysis/apheresis catheter Size/Length: (c) other (see comments)... Insertion Site WDL WDL Site Signs/Symptoms dressing dry and intact;site asymptomatic Site Preparation/Maintenance dressing: dry and intact Treatment Record Start Time 1458 Stop Time 1826 Fluid Volume Removal 2300 Total Fluid Given 300 Returning to Patient Care Unit Transport Testing Complete yes Additional Restrictions no Changes In Status no [place] Procedure Orders Written no Sending RN/Tech Name GIO Paulson Phone [phone] Returning to Patient Care Unit Transport yes Cognitive/Neuro/Behavioral WDL Cognitive/Neuro/Behavioral WDL ex Motor Response (unassessed) Cardiovascular WDL Cardiac WDL ex Heart Sounds valve click Respiratory WDL Respiratory WDL ex Breath Sounds All Lung Chavez Breath Sounds diminished Genitourinary WDL Genitourinary WDL ex Voiding Characteristics patient on hemodialysis Safety Patient Safety WDL WDL Patient Safety Factors side rails raised x 3;bed in low position;wheels locked;call light in reach;ID band on;sitter/caregiver at bedside (HD RN remained at bedside for duration of tx) Infection Prevention personal protective equipment utilized;hand hygiene promoted;equipment surfaces disinfected Isolation Precautions contact precautions maintained;droplet precautions maintained Safety Management Safety Promotion/Fall Prevention clutter-free environment maintained;fall prevention program maintained General Pain Documentation (Adult, OB, Peds) Presence of Pain denies pain/discomfort Presence of Pain Score (Auto-calculated) 0 LOC/Significant Event RASS (Crain Agitation-Sedation Scale) 0-->alert and calm Significant Event iHD complete, pt off circ Post-Hemodialysis Assessment Report given to Farrah Anthony RN, [phone] Problem: Hemodialysis Goal: Safe, Effective Therapy Delivery Outcome: Progressing Goal: Effective Tissue Perfusion Outcome: Progressing Goal: Absence of Infection Signs and Symptoms Outcome: Progressing iHD tx ordered x 3.5 hrs. Plan to remove 2 kg as pt tolerates. Last iHD tx was 02/19/2025. Pt on 3K bath as ordered, K+ of 3.7 on 02/21/2025. During [facility] on 02/21/2025 the following interventions for Prevent/Manage Dialysis Procedure Complication were completed: Ensure system correctly primed, connections secure, and air detector alarms engaged. Verify correct machine setting with physician order. Assure proper dialysate conductivity and water quality prior to starting treatment Closely monitor patient throughout for tolerance to treatment During [facility] on 02/21/2025 the following interventions to Protect/Monitor Dialysis Line/Access Site were completed: Inspect and monitor dialysis line and access site. Change dressing and caps per protocol Educate patient on home care, and reportable symptoms During [facility] on 02/21/2025 the following interventions for Prevent/Manage Dialysis Procedure Complication were completed: Ensure system correctly primed, connections secure, and air detector alarms engaged. Verify correct machine setting with physician order. Assure proper dialysate conductivity and water quality prior to starting treatment Closely monitor patient throughout for tolerance to treatment Problem: Adult Inpatient Plan of Care Goal: Optimal Comfort and Wellbeing Outcome: Progressing Goal: Readiness for Transition of Care Outcome: Progressing Problem: Hemodialysis Goal: Absence of Infection Signs and Symptoms Outcome: Progressing 182: PTT came back at 95.8. Physician renita'd Heparin gtt. To continue to run at the current rate. HD Treatment Note Access used for this treatment: RIJ tunneled line Access issues/complications: None Average Crit line profile: A-B LOC baseline: WNL Any changes to LOC baseline after HD: None Any changes to cardiac rhythm with HD: None Kidney cleared: Moderate Medications with HD treatment: pt on heparin gtt (see MAR) Patient tolerated treatment: Well without intervention Treatment Length: 3.5 hours; Blood pump: 400 ml/min Dialysate Flow: 800 ml/min; Net UF: 2 kg; BVP: 77 L; Bath Used: 3 K / 2.5 Ca 02/19/25 1828 Tx Assessment/Safety (Pre/Post) Less Than 30 Days Hepatitis B Surface Antigen Status Negative Hepatitis B Surface Antigen Resulted From [facility] lab Date Hepatitis B Surface Antigen Status Obtained 03/16/24 Post Procedure Bleach Disinfectant? No Blood Liters Processed (BLP) 77 Transport Modality bed Dialyzer Clearance moderate Tolerance to Dialysis Procedure well Treatment Assessment Fluid Removed/mL: 2400 ml Crit Line - Hematocrit 25.6 % Crit Line - Hemoglobin 8.7 g/dL Crit Line - Blood Volume % -10.2 % Crit Line - SvO2 73 % Hemodialysis, Comments (HD treatment complete; pt's blood returned) Vital Signs Pulse (Heart Rate) 69 Resp Rate 24 BP 98/48 MAP (mmHg) 69 mmHg O2 Sat (%) 98 % O2 Device room air Flow (L/min) 0 Tunneled Central Line - Double Lumen 10/10/21 1116 red white internal jugular vein, right other (see comments) Placement Date/Time: 10/10/21 111 Present On Admission : yes Placement Over Guidewire: yes Lumen 1: red Lumen 2: white Location: internal jugular vein, right Device/Lot Number: dialysis/apheresis catheter Size/Length: (c) other (see comments)... Site Signs/Symptoms dressing dry and intact Lumen 1 Patency/Maintenance flushed without difficulty;blood return, able to obtain Lumen 2 Patency/Maintenance flushed without difficulty;blood return, able to obtain Indication/Daily Review of Necessity hemodialysis Treatment Record Start Time 1457 Stop Time 1828 Fluid Volume Removal 2400 Total Fluid Given 400 Cognitive/Neuro/Behavioral WDL Cognitive/Neuro/Behavioral WDL WDL LOC/Significant Event RASS (Crain Agitation-Sedation Scale) 0-->alert and calm Significant Event HD treatment complete; HD Treatment Plan of Care Plan for a 3.5 hour HD treatment today with UF goal of 2 kg as tolerated During [facility] on 02/19/2025 the following interventions to Protect/Monitor Dialysis Line/Access Site were completed: Inspect and monitor dialysis line and access site. Change dressing and caps per protocol Educate patient on home care, and reportable symptoms During [facility] Treatment on 02/19/2025 the following interventions for Prevent/Manage Dialysis Procedure Complication were completed: Ensure system correctly primed, connections secure, and air detector alarms engaged. Verify correct machine setting with physician order. Assure proper dialysate conductivity and water quality prior to starting treatment Closely monitor patient throughout for tolerance to treatment Problem: Adult Inpatient Plan of Care Goal: Optimal Comfort and Wellbeing Outcome: Progressing Goal: Readiness for Transition of Care Outcome: Progressing Problem: Hemodialysis Goal: Effective Tissue Perfusion Outcome: Progressing Goal: Absence of Infection Signs and Symptoms Outcome: Progressing Problem: Adult Inpatient Plan of Care Goal: Plan of Care Review Outcome: Progressing Problem: Adult Inpatient Plan of Care Goal: Optimal Comfort and Wellbeing Outcome: Progressing Goal: Readiness for Transition of Care Outcome: Progressing Problem: Breathing Pattern Ineffective Goal: Effective Breathing Pattern Outcome: Progressing Problem: Hemodialysis Goal: Effective Tissue Perfusion Outcome: Progressing Goal: Absence of Infection Signs and Symptoms Outcome: Progressing 02/17/251939 Tx Assessment/Safety (Pre/Post) Blood Liters Processed (BLP) 64.5 Transport Modality bed Dialyzer Clearance streaked Tolerance to Dialysis Procedure Well, net uf 2L removed, via Rt TDC. maintained soft BP throughout tx, however asymptomatic. Treatment Assessment UF Goal/mL: 2300 Fluid Removed/mL: 2300 ml Machine Temperature 97.9 F (36.6 C) Crit Line - Hematocrit 25.3 % Crit Line - Hemoglobin 8.6 g/dL Crit Line - Blood Volume % -10.3 % Crit Line - SvO2 58.7 % Profile B Hemodialysis, Lines Secure/Site Visible Yes Hemodialysis, Safety Factors access site visible and intact;vital signs stable;no supplemental oxygenation needed Hemodialysis, Comments resting with stable VS, no complaints;patient tolerating treatment well (iHD tx ended, vss, pt stable) Vital Signs Temp 97.7 F (36.5 C) Temp source Oral Pulse (Heart Rate) 71 Heart Rate Source Monitor Resp Rate (!) 29 BP 107/53 MAP (mmHg) 76 mmHg BP Method Automatic BP Location Left arm BP Position Lying O2 Sat (%) 100 % O2 Device room air Treatment Record Stop Time 1939 Initiation prime given (specify mL) Fluid Volume Removal 2300 Total Fluid Given 300 Returning to Patient Care Unit Transport Testing Complete yes NPO no Additional Restrictions none Changes In Status no [place] Procedure Orders Written no Sending RN/Tech Name Abigail POWERS Phone [phone] Returning to Patient Care Unit Transport yes Cognitive/Neuro/Behavioral WDL Cognitive/Neuro/Behavioral WDL WDL Motor Response General General return to WDL General Pain Documentation (Adult, OB, Peds) Presence of Pain denies pain/discomfort Presence of Pain Score (Auto-calculated) 0 Sleep/Rest/Relaxation (Adult,Pediatric,OB) Sleep/Rest/Relaxation awake LOC/Significant Event RASS (Crain Agitation-Sedation Scale) 0-->alert and calm Significant Event Off circ, conversant Post-Hemodialysis Assessment Report given to Prim RN Problem: Hemodialysis Goal: Safe, Effective Therapy Delivery Outcome: Progressing Goal: Effective Tissue Perfusion Outcome: Progressing Goal: Absence of Infection Signs and Symptoms Outcome: Progressing During [facility] Treatment on 02/17/2025 the following interventions for Monitoring and Managing Fluid Electrolyte/Acid Base Balance were completed: Monitor intake and output. Monitor daily weight. Enforce fluid restriction. Manage electrolyte shifts and resulting effect. Assess presence/location of edema. During [facility] Treatment on 02/17/2025 the following interventions to Protect/Monitor Dialysis Line/Access Site were completed: Inspect and monitor dialysis line and access site. Change dressing and caps per protocol Educate patient on home care, and reportable symptoms During [facility] Treatment on 02/17/2025 the following interventions for Prevent/Manage Dialysis Procedure Complication were completed: Ensure system correctly primed, connections secure, and air detector alarms engaged. Verify correct machine setting with physician order. Assure proper dialysate conductivity and water quality prior to starting treatment Closely monitor patient throughout for tolerance to treatment Requested that pt do walk of life with staff. Pt refused saying that he was to weak to walk today. Since pt is not leaving today will attempt to do walk of like again tomorrow when his is here. Brief GI/Hepatology update Christian Amador is a 74 y.o. 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 Colonoscopy 02/16/25 Impression: - Moderate stenosis and ulceration in the sigmoid colon. Due to concern for possible ischemic bowel, the moderate stenosis was not traversed. Biopsied. - Myochosis in sigmoid colon - Bleeding external and internal hemorrhoids. EGD 02/16/25 Impression: - Z-line regular, 43 cm from the incisors. - Normal esophagus. - 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 gastropathy. - Normal examined duodenum. - No specimens collected. Recommendation: - Resume previous diet. - Continue present medications. - Await pathology results. - Repeat colonoscopy date to be determined after pending pathology results are reviewed for surveillance based on pathology results and for surveillance based on clinical status at that time - No endoscopic indication for PPI - Please place referral for outpatient GI - We will sign off Discussed with Dr. Jordan, attending physician Please reach out with any questions. Tia Billingsley MD Fellow, Gastroenterology 02/16/25 1725 Tx Assessment/Safety (Pre/Post) Post Procedure Bleach Disinfectant? No Blood Liters Processed (BLP) 67.1 Transport Modality bed Dialyzer Clearance moderate;streaked Tolerance to Dialysis Procedure Tolerated well with systolic bp in the 90's most of the session. Treatment Assessment Fluid Removed/mL: 2300 ml Machine Temperature 96.8 F (36 C) Crit Line - Hematocrit 25.8 % Crit Line - Hemoglobin 8.8 g/dL Crit Line - Blood Volume % -11.4 % Crit Line - SvO2 55 % Profile B Hemodialysis, Lines Secure/Site Visible Yes Hemodialysis, Safety Factors no supplemental oxygenation needed;vital signs stable;access site visible and intact Vital Signs Temp 97.7 F (36.5 C) Temp source Axillary Pulse (Heart Rate) 69 Heart Rate Source Monitor Resp Rate 24 BP 90/49 MAP (mmHg) 65 mmHg BP Method Automatic BP Location Left arm BP Position Lying O2 Sat (%) 98 % O2 Device room air Flow (L/min) 0 Tunneled Central Line - Double Lumen 10/10/21 1116 red white internal jugular vein, right other (see comments) Placement Date/Time: 10/10/21 111 Present On Admission : yes Placement Over Guidewire: yes Lumen 1: red Lumen 2: white Location: internal jugular vein, right Device/Lot Number: dialysis/apheresis catheter Size/Length: (c) other (see comments)... Insertion Site WDL WDL Site Signs/Symptoms dressing dry and intact;site asymptomatic Site Preparation/Maintenance site cleansed: 70% alcohol;dressing: dry and intact (alcohol to tegos) Date Dressing Changed 02/16/25 Lumen 1 Patency/Maintenance flushed without difficulty Lumen 2 Patency/Maintenance flushed without difficulty Indication/Daily Review of Necessity hemodialysis Treatment Record Start Time 1426 Stop Time 1725 Fluid Volume Removal 2300 Total Fluid Given 300 Returning to Patient Care Unit Transport Testing Complete yes NPO no Additional Restrictions none Changes In Status no [place] Procedure Orders Written no Sending RN/Tech Name Ivan POWERS Phone [phone] Returning to Patient Care Unit Transport yes LOC/Significant Event RASS (Crain Agitation-Sedation Scale) 0-->alert and calm Significant Event HD tx completed. Post-Hemodialysis Assessment Report given to To Nalini POWERS 3 hour HD tx completed. Blood returned. NET UF=2kgs. PUS=401br/min. No medications administered. Stable tx with soft bp, systolic in the 90's most of session. Alert and oriented X4. Planning a 3 hour dialysis session today with 2kgs to be removed. During [facility] Dialysis Treatment on 02/16/2025 the following interventions to Protect/Monitor Dialysis Line/Access Site were completed: Inspect and monitor dialysis line and access site. Change dressing and caps per protocol Educate patient on home care, and reportable symptoms During [facility] Treatment on 02/16/2025 the following interventions for Monitoring and Managing Fluid Electrolyte/Acid Base Balance were completed: Monitor intake and output. Monitor daily weight. Enforce fluid restriction. Manage electrolyte shifts and resulting effect. Assess presence/location of edema. Problem: Adult Inpatient Plan of Care Goal: Optimal Comfort and Wellbeing Outcome: Progressing Goal: Readiness for Transition of Care Outcome: Progressing Problem: Hemodialysis Goal: Effective Tissue Perfusion Outcome: Progressing Goal: Absence of Infection Signs and Symptoms Outcome: Progressing Problem: Breathing Pattern Ineffective Goal: Effective Breathing Pattern Outcome: Progressing Per Farrah with [facility] micro lab ([phone]) who states blood cultures drawn 01/2725 have no growth. Expected to finalize tomorrow. Notified hospitalist Dr Rizo. Siobhan Fernandez[place] [phone] Report called to Nalini Webber updated on patient status post procedure. MD Serrano notified that patients BM at 0300 was yellow liquid with some particles and picture was uploaded into media. also notified that patient had finished initial 4000mL of colonoscopy prep. This RN asked if patient needed to receive PRN Golytely dose. MD declined PRN dose stating BM did not have any stool in it and it would be fine. Problem: Adult Inpatient Plan of Care Goal: Plan of Care Review Outcome: Progressing Goal: Patient-Specific Goal (Individualized) Outcome: Progressing Goal: Absence of Hospital-Acquired Illness or Injury Outcome: Progressing Goal: Optimal Comfort and Wellbeing Outcome: Progressing Goal: Readiness for Transition of Care Outcome: Progressing Problem: Adult Inpatient Plan of Care Goal: Optimal Comfort and Wellbeing Outcome: Progressing Problem: Breathing Pattern Ineffective Goal: Effective Breathing Pattern Outcome: Progressing RPP + for human metapneumo virus will place required contact and droplet precautions. Linn Serrano MD Overnight cross covering physician [phone] Problem: Breathing Pattern Ineffective Goal: Effective Breathing Pattern Outcome: Progressing Intervention: Promote Improved Breathing Pattern Flowsheets (Taken 02/14/2025 1112) Head of Bed (HOB) Positioning: HOB at 30-45 degrees Thoracic Surgery Updated Plan of Care Thoracic surgery was engaged yesterday for concern for left empyema. Poor surgical candidate so we recommended pulmonology and IR consideration. Per pulmonology, chronic collection is unlikely to be source of symptoms and did not show great improvement with drainage on previous presentations. As such tube placement was deferred which is reasonable. - Patient is not a surgical candidate for VATS in setting of significant surgical history and comorbidities. - Defer further management to pulmonology and primary service - Thoracic surgery will sign off at this time. Plan discussed with attending Dr. Nash. Please do not hesitate to reach out if new questions or concerns arise. Please identify the Thoracic Surgery consult resident section hand via [employer]. The signwriter of this note may not be the resident section hand or available for immediate responses. Thank you for allowing us to participate in the excellent care of this patient. Kenrick Lopez MD Cardiothoracic Surgery PGY-2 #[id number] Overnight Call: Previous Progress Notes and/or H&P Reviewed. Informed that pt with pt has twitching of face states a little more since HD done but his body was twitching then and not so much now. we are getting ready to draw PTT (heparin gtt) and am labs do you want anything added? - advised RN to get chem 7 earlier and added calcium and mag. No further reports of twitching. Linn Serrano MD Overnight cross covering physician [phone] Problem: Adult Inpatient Plan of Care Goal: Absence of Hospital-Acquired Illness or Injury Outcome: Progressing Goal: Optimal Comfort and Wellbeing Outcome: Progressing 02/13/25 1840 Tx Assessment/Safety (Pre/Post) Less Than 30 Days Hepatitis B Surface Antigen Status Negative Hepatitis B Surface Antigen Resulted From [facility] lab Date Hepatitis B Surface Antigen Status Obtained 02/13/25 Transport Modality bed Dialyzer Clearance moderate;streaked Tolerance to Dialysis Procedure Tolerated well with pt's desired UF goal of 1kg. Treatment Assessment Fluid Removed/mL: 1300 ml Machine Temperature 96.8 F (36 C) Crit Line - Hematocrit 25.2 % Crit Line - Hemoglobin 8.6 g/dL Crit Line - Blood Volume % -8.7 % Crit Line - SvO2 50.3 % Profile B Hemodialysis, Lines Secure/Site Visible Yes Hemodialysis, Safety Factors supplemental oxygenation;access site visible and intact;vital signs stable Hemodialysis, Comments (3 hour HD tx completed. Blood returned. NET UF=1kg.) Vital Signs Temp 97.6 F (36.4 C) Temp source Oral Pulse (Heart Rate) 76 Heart Rate Source Monitor Resp Rate 18 BP 110/53 MAP (mmHg) 77 mmHg BP Method Automatic BP Location Right arm BP Position Lying O2 Sat (%) 99 % O2 Device nasal cannula Flow (L/min) 2 Tunneled Central Line - Double Lumen 10/10/21 1116 red white internal jugular vein, right other (see comments) Placement Date/Time: 10/10/21 111 Present On Admission : yes Placement Over Guidewire: yes Lumen 1: red Lumen 2: white Location: internal jugular vein, right Device/Lot Number: dialysis/apheresis catheter Size/Length: (c) other (see comments)... Insertion Site WDL WDL Site Signs/Symptoms dressing dry and intact;site asymptomatic Site Preparation/Maintenance site cleansed: 70% alcohol (alcohol to tegos) Lumen 1 Patency/Maintenance flushed without difficulty Lumen 2 Patency/Maintenance flushed without difficulty Indication/Daily Review of Necessity hemodialysis Treatment Record Start Time 1536 Stop Time 1840 Fluid Volume Removal 1300 Total Fluid Given 300 Returning to Patient Care Unit Transport Testing Complete yes NPO no O2 NC Additional Restrictions none Changes In Status no [place] Procedure Orders Written no Sending RN/Tech Name Ivan POWERS Phone [phone] Returning to Patient Care Unit Transport yes LOC/Significant Event RASS (Crain Agitation-Sedation Scale) 0-->alert and calm Significant Event HD tx completed. Post-Hemodialysis Assessment Report given to Report to Adiel POWERS 3 hour HD tx completed. Blood returned. NET UF=1kg per pt request. States usually it's 0.5-1kg. JDY=079up/min. Coumadin 2mg and Heparin drip started at 12units/kg/hr. Stable tx. Planning a 3 hour HD tx with 2kgs to be removed. During [facility] Dialysis Treatment on 02/13/2025 the following interventions to Protect/Monitor Dialysis Line/Access Site were completed: Inspect and monitor dialysis line and access site. Change dressing and caps per protocol Educate patient on home care, and reportable symptoms During [facility] Treatment on 02/13/2025 the following interventions for Monitoring and Managing Fluid Electrolyte/Acid Base Balance were completed: Monitor intake and output. Monitor daily weight. Enforce fluid restriction. Manage electrolyte shifts and resulting effect. Assess presence/location of edema. Interventional Plan of Care Note After Pulmonary evaluated, it was determined that the effusion was chronic and does not require chest tube placement. Will cancel chest tube placement. Please reach out to IR if this changes. Shana Lew MD Diagnostic Radiology PGY3 R2 Images from the original note were not included. On admission to [facility], from outside facility a dual RN initial assessment of skin condition was performed by Adiel Olvera RN and Linh Mcconnell RN. Skin Assessment: Skin not within defined limits. - Wound(s) identified: Yes - Photo taken and uploaded into notes in IHIS: Yes Fabian Score: 19 LDA Added:Yes Adiel Olvera RN documented in this encounter [facility] 03-06-2025 History of Present illness Narrative Care Management Discharge Note Selected Continued Care - Admitted Since 02/13/2025 Dialysis/Infusion Coordination complete. Service Provider Services Address Phone Fax Patient Preferred [facility] [facility] Dialysis [address], [place] [address] [phone] -- Internal Comment last updated by ELAYNE Vo 2025 1307 Home HD Confirmed with patients at bedside that patient checks his INR every Sunday and follows up his Director Private with results. to transport patient home. AVS updated. Patient medically stable for discharge per physician/medical team. 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 Mel MARIE, RN Clinical Office Specialist [address] [place] [address] Can be reached by phone at [phone] or by Secure Chat Images from the original note were not included. Infectious Disease Consult Progress Note CURRENT HOSPITALIZATION/LOS: Admit Date: 02/13/2025 Date of Evaluation: 55:07 PM Pt goind well and without complaints. in room. Scheduled Meds: ALPRAZolam 1 mg Oral QHS [Held by provider] calcium acetate - Phos Binder 667 mg Oral TID w/meals Cinacalcet 30 mg Oral Once per day on Sunday Cyclobenzaprine 10 mg Oral Q12H darbepoetin 60 mcg Subcutaneous Q7 days Doxycycline monohydrate 100 mg Oral Q12H Fluconazole 200 mg Oral QHS Lactulose 10 g Oral BID Levothyroxine 75 mcg Oral Before BKF Midodrine HCl 10 mg Oral Once per day on Sunday Pantoprazole 40 mg Oral BID vitamin C/B complex/folic acid (VIRT-CAPS) 1 capsule Oral Daily Warfarin 2 mg Oral Daily early evening Continuous Infusions: OBJECTIVE FINDINGS: Vital Signs (24hrs): Temp: [97.4 F (36.3 C)-99.1 F (37.3 C)] 99.1 F (37.3 C) Pulse (Heart Rate): [69-83] 73 Resp Rate: [16-18] 16 BP: (99-107)/(50-55) 105/50 O2 Sat (%): [96 %-100 %] 97 % Lines/Drains/Airways/Wounds: Patient Lines/Drains/Airways Status Active Lines, Drains, Airways, & Wound Overview Name Placement date Placement time Site Days Tunneled Central Line - Double Lumen 10/10/21 1116 red white internal jugular vein, right other (see comments) 10/10/21 1116 -- 1242 Peripheral IV Line - Single Lumen 02/14/25 1840 forearm, posterior, right 22 gauge 02/14/25 1840 -- 18 Wound Skin Tear 02/03/23 1515 Midline;Posterior Buttocks 02/03/23 1515 Buttocks 761 Wound Surgical 02/13/23 0820 incision Left Back 02/13/23 0820 Back 751 PHYSICAL EXAM: General: Laying in bed, no apparent distress. CV: S1 and S2 normal, no murmurs, clicks, gallops or rubs. Regular rate and rhythm. Pulm: Chest is clear, no wheezing or rales. Normal symmetric air entry throughout both lung chavez. No chest wall deformities or tenderness. Trunk/Abd: The abdomen is soft without tenderness, guarding, mass, rebound or organomegaly. Bowel sounds are normal. Ext& Skin: No edema, No rash. DIAGNOSTIC RESULTS/PROCEDURES: Labs: WBC/Hgb/Hct/Plts: 10.65/10.6/34.2/303 (03/05 416) Bun/Creat/Cl/CO2/Glucose: 26/5.35/100/25/95 (03/05 416) Na/K+/Phos/Mg/Ca: 139/5.1/4.9/2.0/9.4 (03/05 416) Radiology/Images: Reviewed TTE: Mildly dilated left ventricle with mild increase in septal wall wall thickness (max 1.2 cm). Normal systolic function, LVEF 55-60%, with abnormal septal motion. Diastolic function could not be assessed d/t MVr. Normal right ventricular size with low normal systolic function. S/p mitral valve repair with an annuloplasty ring & mild residual, posteriorly directed, regurgitation (EROA 0.15 cm2). MV gradients of 12/4 mmHg obtained at HR of 70 bpm. Prosthesis in aortic position, appears well seated. Disk mobility could not be assessed. No evidence of dysfunction on Doppler assessment (Vmax 1.9, PG 15/9 mmHg, DI Vmax 0.27, DI VTI 0.33) with mild regurgitation. Mild to moderate tricuspid regurgitation with moderate RVSP elevation, estimated at 55 mmHg. Mild dilation of the visualized segments of the ascending aorta (3.8 cm). No evidence of intracardiac shunting on agitated saline or color Doppler study Cultures: Reviewed ASSESSMENT: Line cx + MRSE, swabs insertion site neg. Repeat cx neg. 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 pMV with PPM Cirrhosis RECOMMENDATIONS: Hold additional abx. Repeat blood cultures neg. ID will sign off. Call back if concerns or questions. Garcia Bay MD, PhD [facility] Progress Note Patient: Christian Amador, : 1950, Impression / Plan Christian Amador is a 74 y.o. 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 He presented to [facility] with fatigue and [facility] fluid [facility] that was found to be chronic. He was found to have metapneumo virus infection. Also found to have acute on chronic anemia in setting of hematochezia for which he underwent colonoscopy which was inconclusive. He remains inpatient for heparin gtt bridge to home warfarin. S/p Mechanical MV Subtherapeutic INR - resolved INR goal 2.5-3.5, INR 1.7 on admission. On warfarin at home with regimen of 2mg M-F, 1mg on Sat and Sun (12mg total weekly dose, started about 1 week prior to presentation due to previously labile INRs). - s/p heparin gtt; bridged until therapeutic on home warfarin (high risk medication requiring monitoring for toxicity) - pharmacy consulted for assistance with warfarin management and dose adjustments. Had been giving 4mg daily (double home dose) for several days without much movement. gave 8mg 02/24. Gave 4mg 02/25, pharm adjusted dose to 4 mg 02/27 with plan for 3 mg until therapeutic but INR not moving - gave 8 mg again 02/28, 03/01 - give 5mg warfarin 03/02, 03/03 - decrease to 3 mg 03/04, down to 2mg on 03/05 given at goal and anticipate can do daily, with INR check 03/09/25 Positive blood culture Blood cultures requested per neph due to skin changes at TDC site. Grew staph epi in 11/20, high suspicion for contaminant given specimen and patient's clinical status (no fevers, normal WBC), but neph remains concerned about site. - ID consulted for further guidance on c/f infected TDC - repeat blood cultures from line 03/04 NGTD - pending NGTD on 03/06 can dc home Acute blood loss anemia 2/2 rectal bleeding Stenosis and ulceration of sigmoid colon c/f ischemia Bleeding external and internal hemorrhoids Hb back in Nov was 11, Hb 7.3 on admission and has remained stable. GI consulted and patient underwent colonoscopy which revealed area of stenosis and possible ischemia in sigmoid colon, unable to pass camera beyond stenosis. EGD revealed PHG. - path negative for malignancy - Repeat cscope date to be determined by GI pending path results and based on clinical status at that time (needs referral for GI follow up at discharge) MADRID cirrhosis of liver MELD 26 - Continue lactulose - EGD this admission with PHG but no varices. No BB 2/2 hypotension - HCC screening UTD Metapneumovirus infection Supportive care, isolation Chronic pleural effusion Effusion is chronic and stable since at least CT Chest in January 2023. Pleural fluid was exudative at that time with no evidence of malignant cells on cytology. Thoracic consulted and pt is not a candidate for VATS. His current symptoms are more likely to be related to his viral infection than to this effusion ESRD on home dialysis - Neph consulted - Midodrine with HD - Continue cinacalcet, phos binder to be resumed on dc given uptrending again (sub formulary option) Atrial fibrillation s/p AVN ablation, PPM on AC as above MRSA bacteremia on life long suppressive antibiotics Continue home doxy History of fungemia on chronic fluconazole Continue home fluconazole Insomnia continue home xanax nightly Complexity Hypothyroidism - Continue thyroid replacement. Any conditions listed below are present on admission unless otherwise specified. Medical Readiness For Discharge: Anticipated Tomorrow 03/06/2025 DVT prophylaxis with hep gtt -> warfarin Anticipated Disposition: home 03/06 Code status is Full Code Interval History / Subjective No acute events overnight. at bedside. Updated on INR at goal but still pending cx ngtd x 48 hrs. Really wants to dc home. Objective Temp: [97.3 F (36.3 C)-98.2 F (36.8 C)] 98.1 F (36.7 C) Pulse (Heart Rate): [69-83] 79 Resp Rate: [16-26] 16 BP: (93-107)/(50-55) 99/55 O2 Sat (%): [95 %-100 %] 100 % Physical Exam Gen: A, A, NAD ENT: MMM Resp: normal effort on room air, TDC in R chest Cardio: RRR with loud click, no KVNG Psych: appropriate affect and cognition Data Review WBC/Hgb/Hct/Plts: 10.65/10.6/34.2/303 (03/05 416) Na/K+/Phos/Mg/Ca: 139/5.1/4.9/2.0/9.4 (03/05 416) Bun/Creat/Cl/CO2/Glucose: 26/5.35/100/25/95 (03/05 416) Ptt/Pt/Inr: 86.9/29.8/2.8 (03/05 416) [facility] Medicine Progress Note Patient: Christian Amador, : 1950, Impression / Plan Christian Amador is a 74 y.o. 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 He presented to OSH with fatigue and was [facility] for [facility] fluid collection that was found to be chronic. He was found to have metapneumo virus infection. Also found to have acute on chronic anemia in setting of hematochezia for which he underwent colonoscopy which was inconclusive. He remains inpatient for heparin gtt bridge to home warfarin. S/p Mechanical MV Subtherapeutic INR INR goal 2.5-3.5, INR 1.7 on admission. On warfarin at home with regimen of 2mg M-F, 1mg on Sat and Sun (12mg total weekly dose). Stable dose regimen and no other medication or diet changes recently - heparin gtt to bridge until therapeutic on home warfarin (high risk medication requiring monitoring for toxicity) - pharmacy consulted for assistance with warfarin management and dose adjustments. Had been giving 4mg daily (double home dose) for several days without much movement. gave 8mg 02/24. Gave 4mg 02/25, pharm adjusted dose to 4 mg 02/27 with plan for 3 mg until therapeutic but INR not moving - gave 8 mg again 02/28, 03/01 - give 5mg warfarin 03/02, 03/03 - decrease to 3 mg 03/04 as INR near goal Positive blood culture Blood cultures requested per neph due to skin changes at TDC site. Grew staph epi in 11/20, high suspicion for contaminant given specimen and patient's clinical status (no fevers, normal WBC), but neph remains concerned about site. - ID consulted for further guidance on c/f infected TDC - repeat blood cultures ordered (cx from line marked as collected but not done 03/03 - reordered line cx 03/04) Acute blood loss anemia 2/2 rectal bleeding Stenosis and ulceration of sigmoid colon c/f ischemia Bleeding external and internal hemorrhoids Hb back in Nov was 11, Hb 7.3 on admission and has remained stable. GI consulted and patient underwent colonoscopy which revealed area of stenosis and possible ischemia in sigmoid colon, unable to pass camera beyond stenosis. EGD revealed PHG. - path negative for malignancy - Repeat cscope date to be determined by GI pending path results and based on clinical status at that time (needs referral for GI follow up at discharge) MADRID cirrhosis of liver MELD 26 - Continue lactulose - EGD this admission with PHG but no varices. No BB 2/2 hypotension - HCC screening UTD Metapneumovirus infection Supportive care, isolation Chronic pleural effusion Effusion is chronic and stable since at least CT Chest in January 2023. Pleural fluid was exudative at that time with no evidence of malignant cells on cytology. Thoracic consulted and pt is not a candidate for VATS. His current symptoms are more likely to be related to his viral infection than to this effusion ESRD on home dialysis - Neph consulted - Midodrine with HD - Continue cinacalcet, phos binder (sub formulary option) Atrial fibrillation s/p AVN ablation, PPM on AC as above MRSA bacteremia on life long suppressive antibiotics Continue home doxy History of fungemia on chronic fluconazole Continue home fluconazole Insomnia continue home xanax nightly Complexity Hypothyroidism - Continue thyroid replacement. Any conditions listed below are present on admission unless otherwise specified. Medical Readiness For Discharge: Anticipated in 5+ Days DVT prophylaxis with hep gtt -> warfarin Anticipated Disposition: home when INR 2.5 Code status is Full Code Interval History / Subjective No acute events overnight. INR nearing goal. Repeat blood cultures pending. Denies any acute complaints apart from wanting to get out of the hospital. Objective Temp: [97 F (36.1 C)-98.3 F (36.8 C)] 97.4 F (36.3 C) Pulse (Heart Rate): [69-82] 69 Resp Rate: [16-28] 24 BP: (97-116)/(50-67) 112/52 O2 Sat (%): [95 %-100 %] 99 % Physical Exam Gen: A, A, NAD ENT: MMM Resp: normal effort on room air Cardio: RRR, WWP Psych: Ox3, appropriate affect and cognition Data Review Ptt/Pt/Inr: 113.6/26.1/2.4 (03/04 0322-03/04 1040) Care Management Progress Note Plan of Care- Treatment Updates: Working on therapeutic INR, must be 2.5 prior to discharge. INR was 2.1. Patient with positive cultures, ID consulted, awaiting final recs. Discharge updates: Patient to discharge home with spouse, spouse to provide transportation. Patient has home HD, patient to follow with home hemo RN at discharge. Barriers: medical readiness (therapeutic INR, final ID plan) Current Referrals and Status Home Dialysis info Selected Continued Care - Admitted Since 02/13/2025 Dialysis/Infusion Service Provider Services Address Phone Fax Patient Preferred [facility] D[facility] [address], [place] [address] [phone] -- Internal Comment last updated by ELAYNE Vo 2025 1307 Home HD ELAYNE Guzman Clinical Trials Nurse [phone] Available on secure chat. NUTRITION FOLLOW-UP Pt with identified nutrition risk factors: Current admit and PMHx Nutrition Plan of Care: 1. Continue current diet order. 2. Pt declined oral nutrition supplements. 3. Monitor for significant weight changes. 4. Monitor GI and skin integrity. 5. Monitor and encourage po intakes with goal of average po being 75%. 6. Cooperer to follow. ___ Met with patient today at bedside wearing mask to obtain following information: Diet Order: DIET PHOSPHORUS AND POTASSIUM RESTRICTED (RENAL) Appetite: good Per doc flow sheet: Date Breakfast Lunch Dinner 03/03 03/02 50% 03/01 75% 02/28 100% 02/27 100% 100% Po average over past five days is 85% of 5 meals. Admit wt: 174 lb Last recorded : 02/17/25 Weight: 78.9 kg (173 lb 15.1 oz) Height: 170.2 cm (5' 7.01) no significant weight changes in 1 month Net IO Since Admission: -8,571.62 mL [03/03/25 1326] GI Last Bowel Movement: 03/02/25 Skin Assessment Fabian Score: 19 Pt does not meet criteria for STAND skin bundle Active Wounds: Wound Skin Tear 02/03/23 1515 Midline;Posterior Buttocks (759) Wound Surgical 02/13/23 0820 incision Left Back (749) Edema none Additional Information Pt stated not wanting a nepro oral supplement. Pt states they don't have any nausea or vomiting. Laney Crowe [facility] dietary director student Cosigned by PAMELA Riggins at 03/03/2025 2:33 PM EDT Associated attestation - Tamiko Boss DT - 03/03/2025 2:33 PM EDT I have reviewed/corrected the Cooperer student note and agree with the nutrition plan of care. PAMELA Riggins Pager [phone] Hospital Medicine Progress Note Patient: Christian Amador, : 1950, Impression / Plan Christian Amadro is a 74 y.o. 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 He presented to OSH with fatigue and was [facility] for [facility] fluid collection that was found to be chronic. He was found to have metapneumo virus infection. Also found to have acute on chronic anemia in setting of hematochezia for which he underwent colonoscopy which was inconclusive. He remains inpatient for heparin gtt bridge to home warfarin. S/p Mechanical MV Subtherapeutic INR INR goal 2.5-3.5, INR 1.7 on admission. On warfarin at home with regimen of 2mg M-F, 1mg on Sat and Sun (12mg total weekly dose). Stable dose regimen and no other medication or diet changes recently - heparin gtt to bridge until therapeutic on home warfarin (high risk medication requiring monitoring for toxicity) - pharmacy consulted for assistance with warfarin management and dose adjustments. Had been giving 4mg daily (double home dose) for several days without much movement. gave 8mg 02/24. Gave 4mg 02/25, pharm adjusted dose to 4 mg 02/27 with plan for 3 mg until therapeutic but INR not moving - gave 8 mg again 02/28, 03/01 - give 5mg warfarin 03/02 - will f/up pm INR (am lab drawn at 10 pm) and consider decreasing to 4mg Positive blood culture Blood cultures requested per neph due to skin changes at TDC site. Grew staph epi in 1/2, high suspicion for contaminant given specimen and patient's clinical status (no fevers, normal WBC), but neph remains concerned about site. - ID consulted for further guidance on c/f infected TDC - repeat blood cultures ordered Acute blood loss anemia 2/2 rectal bleeding Stenosis and ulceration of sigmoid colon c/f ischemia Bleeding external and internal hemorrhoids Hb back in Nov was 11, Hb 7.3 on admission and has remained stable. GI consulted and patient underwent colonoscopy which revealed area of stenosis and possible ischemia in sigmoid colon, unable to pass camera beyond stenosis. EGD revealed PHG. - path negative for malignancy - Repeat cscope date to be determined by GI pending path results and based on clinical status at that time (needs referral for GI follow up at discharge) MADRID cirrhosis of liver MELD 26 - Continue lactulose - EGD this admission with PHG but no varices. No BB 2/2 hypotension - HCC screening UTD Metapneumovirus infection Supportive care, isolation Chronic pleural effusion Effusion is chronic and stable since at least CT Chest in January 2023. Pleural fluid was exudative at that time with no evidence of malignant cells on cytology. Thoracic consulted and pt is not a candidate for VATS. His current symptoms are more likely to be related to his viral infection than to this effusion ESRD on home dialysis - Neph consulted - Midodrine with HD - Continue cinacalcet, phos binder (sub formulary option) Atrial fibrillation s/p AVN ablation, PPM on AC as above MRSA bacteremia on life long suppressive antibiotics Continue home doxy History of fungemia on chronic fluconazole Continue home fluconazole Insomnia continue home xanax nightly Complexity Hypothyroidism - Continue thyroid replacement. Any conditions listed below are present on admission unless otherwise specified. Medical Readiness For Discharge: Anticipated in 5+ Days DVT prophylaxis with hep gtt -> warfarin Anticipated Disposition: home when INR 2.5 Code status is Full Code Interval History / Subjective No acute events overnight. INR slowly improving. Discussed plan for ID consult due to nephrology's concern re: blood culture. Denies any acute complaints apart from wanting to get out of the hospital. Objective Temp: [97.4 F (36.3 C)-98.2 F (36.8 C)] 97.4 F (36.3 C) Pulse (Heart Rate): [69-139] 70 Resp Rate: [16-37] 16 BP: (81-116)/(44-56) 107/53 O2 Sat (%): [95 %-100 %] 95 % Physical Exam Gen: A, A, NAD ENT: MMM Resp: normal effort on room air Cardio: RRR, WWP Psych: Ox3, appropriate affect and cognition Data Review WBC/Hgb/Hct/Plts: 8.86/10.9/35.1/288 (03/03 517) Na/K+/Phos/Mg/Ca: 135/4.6/4.5/1.9/9.0 (03/03 517) Bun/Creat/Cl/CO2/Glucose: 24/5.02/97/25/89 (03/03 517) Ptt/Pt/Inr: 102.3/23.0/2.1 (03/02 2226-03/03 517) ESRD Note: Diagnosis: ESRD on dialysis currently hospitalized for workup of hematochezia. Remains hospitalized to get his INR therapeutic Subjective: Feels ok today, seen after dialysis Plan: ESRD MTTS- HD today, 3K, 2L UF (4x/week) Anemia of renal disease - Hb low, check iron saturation, start aranesp 60mcg/wk Secondary hyperparathyroidism - Phos at goal, continue phoslo, sensipar Blood pressure management in a patient with ESRD - acceptable, continue midodrine Access - RIJ TDC, area of skin defect close to exit site. No ozzing. Nutrition - Nephronex/nephrocaps Pertinent Data/Labs: Lab Results Component Value Date POTASSIUM 4.6 03/02/2025 POTASSIUM 4.5 02/28/2025 POTASSIUM 4.4 02/25/2025 POTASSIUM 5.34 (H) 09/15/2021 POTASSIUM 4.8 08/07/2016 POTASSIUM 6.8 06/06/2016 POTASSIUM 6.6 06/05/2016 POTASSIUM 5.5 (H) 06/01/2016 POTASSIUM 5.0 05/31/2016 POTASSIUM 4.59 08/25/2003 POTASSIUM 4.20 08/24/2003 POTASSIUM 4.70 08/24/2003 Lab Results Component Value Date HGB 9.7 (L) 03/02/2025 HGB 9.4 (L) 02/28/2025 HGB 8.5 (L) 02/25/2025 HGB 9.8 (L) 08/07/2016 HGB 9.3 06/05/2016 HGB 8.9 (L) 06/01/2016 HGB 9.0 (L) 05/31/2016 IRONSATURAT 47 02/12/2023 IRONSATURAT 5 (L) 05/03/2016 FERRITIN 224.3 09/12/2021 FERRITIN 726 (H) 05/03/2016 Lab Results Component Value Date PHOSPHORUS 4.7 (H) 02/28/2025 PHOSPHORUS 4.3 02/25/2025 PHOSPHORUS 3.3 05/02/2016 PHOSPHORUS 4.0 05/01/2016 CALCIUM 8.9 02/28/2025 CALCIUM 8.7 02/25/2025 CALCIUM 9.4 08/07/2016 CALCIUM 9.4 06/01/2016 PTH 283.6 (H) 02/04/2023 PTH 101.8 (H) 09/13/2021 PTH 87.2 (H) 05/15/2016 BP Readings from Last 3 Encounters: 03/02/25 95/48 12/19/24 115/55 10/22/24 122/48 Physical Exam: BP 95/48 (BP Location: Left arm, BP Position: Lying) Pulse 71 Temp 97.6 F (36.4 C) (Axillary) Resp 23 Ht 1.702 m (5' 7.01) Wt 78.9 kg (173 lb 15.1 oz) SpO2 100% BMI 27.24 kg/m Smoking Status Never Gen: NAD Heart: audible heart sounds, no edema Lungs: CTAB Abd: soft, NT Neuro: Awake and alert Access: RIJ TDC ALPRAZolam 1 mg Oral QHS [Held by provider] calcium acetate - Phos Binder 667 mg Oral TID w/meals Cinacalcet 30 mg Oral Once per day on Sunday Cyclobenzaprine 10 mg Oral Q12H Doxycycline monohydrate 100 mg Oral Q12H Fluconazole 200 mg Oral QHS Lactulose 10 g Oral BID Levothyroxine 75 mcg Oral Before BKF Midodrine HCl 10 mg Oral Once per day on Sunday Pantoprazole 40 mg Oral BID vitamin C/B complex/folic acid (VIRT-CAPS) 1 capsule Oral Daily Warfarin 5 mg Oral Daily early evening ROSE Browne, MS Attending Auditor Tax 03/02/25 1151 Outlier Review Reviewing for: Outlier Meeting Medical Necessity: Yes Medical Necessity Summary: Patient's INR must be 2.5 prior to discharge, today 03/02 INR 1.9 Barriers: Standard Treatment/Therapy Intervention: No intervention needed Action by Other Stakeholder SW;Office SpecialistIcu Rn Comments: CM/SW continue to follow Escalated to: None Required ELAYNE Guzman Clinical Trials Nurse [phone] Available on secure chat. Hospital Medicine Progress Note Patient: Christian Amador, : 1950, Impression / Plan Christian Amador is a 74 y.o. 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 He presented to OSH with fatigue and was transferred to [facility] for [facility] fluid collection that was found to be chronic. He was found to have metapneumo virus infection. Also found to have acute on chronic anemia in setting of hematochezia for which he underwent colonoscopy which was inconclusive. He remains inpatient for heparin gtt bridge to home warfarin. S/p Mechanical MV Subtherapeutic INR INR goal 2.5-3.5, INR 1.7 on admission. On warfarin at home with regimen of 2mg M-F, 1mg on Sat and Sun (12mg total weekly dose). Stable dose regimen and no other medication or diet changes recently - heparin gtt to bridge until therapeutic on home warfarin (high risk medication requiring monitoring for toxicity) - pharmacy consulted for assistance with warfarin management and dose adjustments. Had been giving 4mg daily (double home dose) for several days without much movement. gave 8mg 02/24. Gave 4mg 02/25, pharm adjusted dose to 4 mg 02/27 with plan for 3 mg until therapeutic but INR not moving - gave 8 mg again 02/28, 03/01 - give 5mg warfarin 03/02 Acute blood loss anemia 2/2 rectal bleeding Stenosis and ulceration of sigmoid colon c/f ischemia Bleeding external and internal hemorrhoids Hb back in Nov was 11, Hb 7.3 on admission and has remained stable. GI consulted and patient underwent colonoscopy which revealed area of stenosis and possible ischemia in sigmoid colon, unable to pass camera beyond stenosis. EGD revealed PHG. - path negative for malignancy - Repeat cscope date to be determined by GI pending path results and based on clinical status at that time (needs referral for GI follow up at discharge) MADRID cirrhosis of liver MELD 26 - Continue lactulose - EGD this admission with PHG but no varices. No BB 2/2 hypotension - HCC screening UTD Metapneumovirus infection Supportive care, isolation Chronic pleural effusion Effusion is chronic and stable since at least CT Chest in January 2023. Pleural fluid was exudative at that time with no evidence of malignant cells on cytology. Thoracic consulted and pt is not a candidate for VATS. His current symptoms are more likely to be related to his viral infection than to this effusion ESRD on home dialysis - Neph consulted - Midodrine with HD - Continue cinacalcet, phos binder (sub formulary option) Atrial fibrillation s/p AVN ablation, PPM on AC as above MRSA bacteremia on life long suppressive antibiotics Continue home doxy History of fungemia on chronic fluconazole Continue home fluconazole Insomnia continue home xanax nightly Complexity Hypothyroidism - Continue thyroid replacement. Any conditions listed below are present on admission unless otherwise specified. Medical Readiness For Discharge: Anticipated in 5+ Days DVT prophylaxis with hep gtt -> warfarin Anticipated Disposition: home when INR 2.5 Code status is Full Code Interval History / Subjective No acute events overnight. INR slowly improving. D/w and patient at bedside. No acute complaints. Objective Temp: [97.1 F (36.2 C)-98.1 F (36.7 C)] 97.5 F (36.4 C) Pulse (Heart Rate): [70-79] 70 Resp Rate: [16-18] 16 BP: (106-119)/(51-56) 119/51 O2 Sat (%): [95 %-100 %] 98 % Physical Exam Gen: A, A, NAD ENT: MMM Resp: normal effort on room air Cardio: RRR, WWP Psych: Ox3, appropriate affect and cognition Data Review Ptt/Pt/Inr: 53.0/21.4/1.9 (03/02 032-03/02 813) [facility] Medicine Progress Note Patient: Christian Amador, : 1950, Impression / Plan Christian Amador is a 74 y.o. 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 He presented to OSH with fatigue and was transferred to [facility] for pleural fluid collection that was found to be chronic. He was found to have metapneumo virus infection. Also found to have acute on chronic anemia in setting of hematochezia for which he underwent colonoscopy which was inconclusive. He remains inpatient for heparin gtt bridge to home warfarin. S/p Mechanical MV Subtherapeutic INR INR goal 2.5-3.5, INR 1.7 on admission. On warfarin at home with regimen of 2mg M-F, 1mg on Sat and Sun (12mg total weekly dose). Stable dose regimen and no other medication or diet changes recently - heparin gtt to bridge until therapeutic on home warfarin (high risk medication requiring monitoring for toxicity) - pharmacy consulted for assistance with warfarin management and dose adjustments. Had been giving 4mg daily (double home dose) for several days without much movement. gave 8mg 02/24. Gave 4mg 02/25, pharm adjusted dose to 4 mg 02/27 with plan for 3 mg until therapeutic but INR not moving - will give 8 mg again 02/28, 03/01 and adjust tomorrow as needed Acute blood loss anemia 2/2 rectal bleeding Stenosis and ulceration of sigmoid colon c/f ischemia Bleeding external and internal hemorrhoids Hb back in Nov was 11, Hb 7.3 on admission and has remained stable. GI consulted and patient underwent colonoscopy which revealed area of stenosis and possible ischemia in sigmoid colon, unable to pass camera beyond stenosis. EGD revealed PHG. - path negative for malignancy - Repeat cscope date to be determined by GI pending path results and based on clinical status at that time (needs referral for GI follow up at discharge) MADRID cirrhosis of liver MELD 26 - Continue lactulose - EGD this admission with PHG but no varices. No BB 2/2 hypotension - HCC screening UTD Metapneumovirus infection Supportive care, isolation Chronic pleural effusion Effusion is chronic and stable since at least CT Chest in January 2023. Pleural fluid was exudative at that time with no evidence of malignant cells on cytology. Thoracic consulted and pt is not a candidate for VATS. His current symptoms are more likely to be related to his viral infection than to this effusion ESRD on home dialysis - Neph consulted - Midodrine with HD - Continue cinacalcet, phos binder (sub formulary option) Atrial fibrillation s/p AVN ablation, PPM on AC as above MRSA bacteremia on life long suppressive antibiotics Continue home doxy History of fungemia on chronic fluconazole Continue home fluconazole Insomnia continue home xanax nightly Complexity Hypothyroidism - Continue thyroid replacement. Any conditions listed below are present on admission unless otherwise specified. Medical Readiness For Discharge: Anticipated in 5+ Days DVT prophylaxis with hep gtt -> warfarin Anticipated Disposition: home when INR 2.5 Code status is Full Code Interval History / Subjective No acute events overnight. INR flat again today. Continuing increased dose. No acute complaints. Objective Temp: [97.2 F (36.2 C)-98.5 F (36.9 C)] 97.5 F (36.4 C) Pulse (Heart Rate): [69-82] 82 Resp Rate: [16-28] 16 BP: (88-112)/(46-59) 104/54 O2 Sat (%): [96 %-100 %] 96 % Physical Exam Gen: A, A, NAD ENT: MMM Resp: normal effort on room air Cardio: RRR, WWP Psych: Ox3, appropriate affect and cognition Data Review Ptt/Pt/Inr: 57.2/17.9/1.5 (02/28 2221-03/01 0539) Hospital Medicine Progress Note Patient: Christian Amador, : 1950, Impression / Plan Christian Amador is a 74 y.o. 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 He presented to OSH with fatigue and was transferred to [facility] for pleural fluid collection that was found to be chronic. He was found to have metapneumo virus infection. Also found to have acute on chronic anemia in setting of hematochezia for which he underwent colonoscopy which was inconclusive. He remains inpatient for heparin gtt bridge to home warfarin. S/p Mechanical MV Subtherapeutic INR INR goal 2.5-3.5, INR 1.7 on admission. On warfarin at home with regimen of 2mg M-F, 1mg on Sat and Sun (12mg total weekly dose). Stable dose regimen and no other medication or diet changes recently - heparin gtt to bridge until therapeutic on home warfarin (high risk medication requiring monitoring for toxicity) - pharmacy consulted for assistance with warfarin management and dose adjustments. Had been giving 4mg daily (double home dose) for several days without much movement. gave 8mg 02/24. Gave 4mg 02/25, pharm adjusted dose to 4 mg 02/27 with plan for 3 mg until therapeutic but INR not moving - will give 8 mg again 02/28 and adjust tomorrrow Acute blood loss anemia 2/2 rectal bleeding Stenosis and ulceration of sigmoid colon c/f ischemia Bleeding external and internal hemorrhoids Hb back in Nov was 11, Hb 7.3 on admission and has remained stable. GI consulted and patient underwent colonoscopy which revealed area of stenosis and possible ischemia in sigmoid colon, unable to pass camera beyond stenosis. EGD revealed PHG. - path negative for malignancy - Repeat cscope date to be determined by GI pending path results and based on clinical status at that time (needs referral for GI follow up at discharge) MADRID cirrhosis of liver MELD 26 - Continue lactulose - EGD this admission with PHG but no varices. No BB 2/2 hypotension - HCC screening UTD Metapneumovirus infection Supportive care, isolation Chronic pleural effusion Effusion is chronic and stable since at least CT Chest in January 2023. Pleural fluid was exudative at that time with no evidence of malignant cells on cytology. Thoracic consulted and pt is not a candidate for VATS. His current symptoms are more likely to be related to his viral infection than to this effusion ESRD on home dialysis - Neph consulted - Midodrine with HD - Continue cinacalcet, phos binder (sub formulary option) Atrial fibrillation s/p AVN ablation, PPM on AC as above MRSA bacteremia on life long suppressive antibiotics Continue home doxy History of fungemia on chronic fluconazole Continue home fluconazole Insomnia continue home xanax nightly Complexity Hypothyroidism - Continue thyroid replacement. Any conditions listed below are present on admission unless otherwise specified. Medical Readiness For Discharge: Anticipated in 5+ Days DVT prophylaxis with hep gtt -> warfarin Anticipated Disposition: home when INR 2.5 Code status is Full Code Interval History / Subjective No acute events overnight. INR flat today. D/w and patient plan to increase dose tonight, which they are both happy with. No acute complaints. Objective Temp: [97.3 F (36.3 C)-98.6 F (37 C)] 98.5 F (36.9 C) Pulse (Heart Rate): [69-79] 76 Resp Rate: [16] 16 BP: (103-124)/(46-75) 124/59 O2 Sat (%): [91 %-100 %] 92 % Physical Exam Gen: A, A, NAD ENT: MMM Resp: normal effort on room air Cardio: RRR, WWP Psych: Ox3, appropriate affect and cognition Data Review WBC/Hgb/Hct/Plts: 6.86/9.4/31.0/220 (02/28 109) Na/K+/Phos/Mg/Ca: 140/4.5/4.7/1.9/8.9 (02/28 109) Bun/Creat/Cl/CO2/Glucose: 36/6.59/101/25/114 (02/28 109) Ptt/Pt/Inr: 101.1/17.8/1.5 (02/28 109-02/28 0759) Care Management Progress Note Plan of Care- Treatment Updates: Working on therapeutic INR, must be 2.5 prior to discharge. INR today 02/27 was 1.5 Discharge updates: Patient to discharge home with spouse, spouse to provide transportation. Patient has home HD, patient to follow with home hemo RN at discharge. Current Referrals and Status Home Dialysis info Selected Continued Care - Admitted Since 02/13/2025 Dialysis/Infusion Service Provider Services Address Phone Fax Patient Preferred [facility] [place] [facility] D[facility] [address], [facility] [id number] [phone] -- Internal Comment last updated by ELAYNE Vo 2025 1307 Home HD ELAYNE Guzman Clinical Trials Nurse [phone] Available on secure chat. Hospital Medicine Progress Note Patient: Christian Amador, : 1950, Impression / Plan Christian Amador is a 74 y.o. 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 He presented to OSH with fatigue and was transferred to [facility] for pleural fluid collection that was found to be chronic. He was found to have metapneumo virus infection. Also found to have acute on chronic anemia in setting of hematochezia for which he underwent colonoscopy which was inconclusive. He remains inpatient for heparin gtt bridge to home warfarin. S/p Mechanical MV Subtherapeutic INR INR goal 2.5-3.5, INR 1.7 on admission. On warfarin at home with regimen of 2mg M-F, 1mg on Sat and Sun (12mg total weekly dose). Stable dose regimen and no other medication or diet changes recently - heparin gtt to bridge until therapeutic on home warfarin (high risk medication requiring monitoring for toxicity) - pharmacy consulted for assistance with warfarin management and dose adjustments. Had been giving 4mg daily (double home dose) for several days without much movement. gave 8mg 02/24. Gave 4mg 02/25, pharm adjusted dose to 4 mg tonight, 02/27, then plan for 3 mg until therapeutic Acute blood loss anemia 2/2 rectal bleeding Stenosis and ulceration of sigmoid colon c/f ischemia Bleeding external and internal hemorrhoids Hb back in Nov was 11, Hb 7.3 on admission and has remained stable. GI consulted and patient underwent colonoscopy which revealed area of stenosis and possible ischemia in sigmoid colon, unable to pass camera beyond stenosis. EGD revealed PHG. - path negative for malignancy - Repeat cscope date to be determined by GI pending path results and based on clinical status at that time (needs referral for GI follow up at discharge) MADRID cirrhosis of liver MELD 26 - Continue lactulose - EGD this admission with PHG but no varices. No BB 2/2 hypotension - HCC screening UTD Metapneumovirus infection Supportive care, isolation Chronic pleural effusion Effusion is chronic and stable since at least CT Chest in January 2023. Pleural fluid was exudative at that time with no evidence of malignant cells on cytology. Thoracic consulted and pt is not a candidate for VATS. His current symptoms are more likely to be related to his viral infection than to this effusion ESRD on home dialysis - Neph consulted - Midodrine with HD - Continue cinacalcet, phos binder (sub formulary option) Atrial fibrillation s/p AVN ablation, PPM on AC as above MRSA bacteremia on life long suppressive antibiotics Continue home doxy History of fungemia on chronic fluconazole Continue home fluconazole Insomnia continue home xanax nightly Complexity Hypothyroidism - Continue thyroid replacement. Any conditions listed below are present on admission unless otherwise specified. Medical Readiness For Discharge: Anticipated in 5+ Days DVT prophylaxis with hep gtt -> warfarin Anticipated Disposition: home when INR 2.5 Code status is Full Code Interval History / Subjective No acute events overnight. INR slowly increasing, 1.5 today. Patient says it has taken him 2 weeks in the past to get INR up while hospitalized. No acute complaints. Objective Temp: [97.5 F (36.4 C)-98.6 F (37 C)] 98.3 F (36.8 C) Pulse (Heart Rate): [69-80] 69 Resp Rate: [16] 16 BP: (99-121)/(48-56) 106/54 O2 Sat (%): [93 %-99 %] 93 % Physical Exam Gen: A, A, NAD ENT: MMM Resp: normal effort on room air Cardio: RRR, WWP Psych: Ox3, appropriate affect and cognition Data Review Ptt/Pt/Inr: 97.6/17.6/1.5 (02/275-02/27 0935) Hospital Medicine Progress Note Patient: Christian Amador, : 1950, Impression / Plan Christian Amador is a 74 y.o. 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 He presented to OSH with fatigue and was transferred to [facility] for pleural fluid collection that was found to be chronic. He was found to have metapneumo virus infection. Also found to have acute on chronic anemia in setting of hematochezia for which he underwent colonoscopy which was inconclusive. He remains inpatient for heparin gtt bridge to home warfarin. S/p Mechanical MV Subtherapeutic INR INR goal 2.5-3.5, INR 1.7 on admission. On warfarin at home with regimen of 2mg M-F, 1mg on Sat and Sun (12mg total weekly dose). Stable dose regimen and no other medication or diet changes recently - heparin gtt to bridge until therapeutic on home warfarin (high risk medication requiring monitoring for toxicity) - pharmacy consulted for assistance with warfarin management and dose adjustments. Had been giving 4mg daily (double home dose) for several days without much movement. gave 8mg 02/24. Gave 4mg 02/25, pharm adjusted dose to alternating 2mg, 1mg every other day Acute blood loss anemia 2/2 rectal bleeding Stenosis and ulceration of sigmoid colon c/f ischemia Bleeding external and internal hemorrhoids Hb back in Nov was 11, Hb 7.3 on admission and has remained stable. GI consulted and patient underwent colonoscopy which revealed area of stenosis and possible ischemia in sigmoid colon, unable to pass camera beyond stenosis. EGD revealed PHG. - path negative for malignancy - Repeat cscope date to be determined by GI pending path results and based on clinical status at that time (needs referral for GI follow up at discharge) MADRID cirrhosis of liver MELD 26 - Continue lactulose - EGD this admission with PHG but no varices. No BB 2/2 hypotension - HCC screening UTD Metapneumovirus infection Supportive care, isolation Chronic pleural effusion Effusion is chronic and stable since at least CT Chest in January 2023. Pleural fluid was exudative at that time with no evidence of malignant cells on cytology. Thoracic consulted and pt is not a candidate for VATS. His current symptoms are more likely to be related to his viral infection than to this effusion ESRD on home dialysis - Neph consulted - Midodrine with HD - Continue cinacalcet, phos binder (sub formulary option) Atrial fibrillation s/p AVN ablation, PPM on AC as above MRSA bacteremia on life long suppressive antibiotics Continue home doxy History of fungemia on chronic fluconazole Continue home fluconazole Insomnia continue home xanax nightly Complexity Hypothyroidism - Continue thyroid replacement. Any conditions listed below are present on admission unless otherwise specified. Medical Readiness For Discharge: Anticipated in 5+ Days DVT prophylaxis with hep gtt -> warfarin Anticipated Disposition: home when INR 2.5 Code status is Full Code Interval History / Subjective No acute events overnight. Seen in HD. INR slowly increasing, 1.4 today. Objective Temp: [97.4 F (36.3 C)-97.6 F (36.4 C)] 97.5 F (36.4 C) Pulse (Heart Rate): [69-77] 70 Resp Rate: [18-38] 18 BP: (86-118)/(45-67) 116/67 O2 Sat (%): [95 %-100 %] 97 % Physical Exam Gen: A, A, NAD ENT: MMM Resp: normal effort on room air Cardio: RRR, WWP Psych: Ox3, appropriate affect and cognition Data Review WBC/Hgb/Hct/Plts: 5.90/8.5/28.0/175 (02/255) Na/K+/Phos/Mg/Ca: 137/4.4/4.3/1.8/8.7 (02/25 2345) Bun/Creat/Cl/CO2/Glucose: 22/4.82/98/26/91 (02/25 2345) Ptt/Pt/Inr: 93.8/16.9/1.4 (02/25 2345) ESRD Note: Diagnosis: ESRD on dialysis currently hospitalized for workup of hematochezia. And pleural effusion Remains hospitalized to get his INR therapeutic Subjective: Feels ok today, seen during dialysis bp low but tolerating well continues to be in isolation Plan: ESRD MTTS- HD today, 3K, 2L UF (4x/week) this week did MWTH and will do sat Anemia of renal disease - Hb low, check iron saturation, start aranesp 60mcg/wk Secondary hyperparathyroidism - Phos at goal, continue phoslo, sensipar Blood pressure management in a patient with ESRD - acceptable, continue midodrine Access - RIJ TDC Nutrition - Nephronex/nephrocaps Pertinent Data/Labs: Lab Results Component Value Date POTASSIUM 4.4 02/25/2025 POTASSIUM 4.0 02/24/2025 POTASSIUM 3.7 02/21/2025 POTASSIUM 5.34 (H) 09/15/2021 POTASSIUM 4.8 08/07/2016 POTASSIUM 6.8 06/06/2016 POTASSIUM 6.6 06/05/2016 POTASSIUM 5.5 (H) 06/01/2016 POTASSIUM 5.0 05/31/2016 POTASSIUM 4.59 08/25/2003 POTASSIUM 4.20 08/24/2003 POTASSIUM 4.70 08/24/2003 Lab Results Component Value Date HGB 8.5 (L) 02/25/2025 HGB 8.8 (L) 02/24/2025 HGB 8.1 (L) 02/21/2025 HGB 9.8 (L) 08/07/2016 HGB 9.3 06/05/2016 HGB 8.9 (L) 06/01/2016 HGB 9.0 (L) 05/31/2016 IRONSATURAT 47 02/12/2023 IRONSATURAT 5 (L) 05/03/2016 FERRITIN 224.3 09/12/2021 FERRITIN 726 (H) 05/03/2016 Lab Results Component Value Date PHOSPHORUS 4.3 02/25/2025 PHOSPHORUS 2.8 02/24/2025 PHOSPHORUS 3.3 05/02/2016 PHOSPHORUS 4.0 05/01/2016 CALCIUM 8.7 02/25/2025 CALCIUM 8.6 02/24/2025 CALCIUM 9.4 08/07/2016 CALCIUM 9.4 06/01/2016 PTH 283.6 (H) 02/04/2023 PTH 101.8 (H) 09/13/2021 PTH 87.2 (H) 05/15/2016 BP Readings from Last 3 Encounters: 02/26/25 114/54 12/19/24 115/55 10/22/24 122/48 Physical Exam: BP 114/54 Pulse 74 Temp 97.6 F (36.4 C) (Oral) Resp (!) 31 Ht 1.702 m (5' 7.01) Wt 78.9 kg (173 lb 15.1 oz) SpO2 99% BMI 27.24 kg/m Smoking Status Never Gen: NAD Heart: audible heart sounds, no edema Lungs: CTAB Abd: soft, NT Neuro: Awake and alert Access: RIJ TDC ALPRAZolam 1 mg Oral QHS [Held by provider] calcium acetate - Phos Binder 667 mg Oral TID w/meals Cinacalcet 30 mg Oral Once per day on Sunday Cyclobenzaprine 10 mg Oral Q12H [START ON 2025] dialysate Dialysis Once in dialysis Doxycycline monohydrate 100 mg Oral Q12H Fluconazole 200 mg Oral QHS Lactulose 10 g Oral BID Levothyroxine 75 mcg Oral Before BKF Midodrine HCl 10 mg Oral Once per day on Sunday Pantoprazole 40 mg Oral BID vitamin C/B complex/folic acid (VIRT-CAPS) 1 capsule Oral Daily warfarin 2 mg Oral Once per day on Sunday And [START ON 02/28/2025] Warfarin 1 mg Oral Once per day on Sunday MARIA EUGENIA LANDRY M.D,ALEJANDRO Attending Nephrology ESRD Note: Diagnosis: ESRD on dialysis currently hospitalized for workup of hematochezia. And pleural effusion Remains hospitalized to get his INR therapeutic Subjective: Feels ok today, seen during dialysis bp low but tolerating well Plan: ESRD MTTS- HD today, 3K, 2L UF (4x/week) Anemia of renal disease - Hb low, check iron saturation, start aranesp 60mcg/wk Secondary hyperparathyroidism - Phos at goal, continue phoslo, sensipar Blood pressure management in a patient with ESRD - acceptable, continue midodrine Access - RIJ TDC Nutrition - Nephronex/nephrocaps Pertinent Data/Labs: Lab Results Component Value Date POTASSIUM 4.0 02/24/2025 POTASSIUM 3.7 02/21/2025 POTASSIUM 4.0 02/20/2025 POTASSIUM 5.34 (H) 09/15/2021 POTASSIUM 4.8 08/07/2016 POTASSIUM 6.8 06/06/2016 POTASSIUM 6.6 06/05/2016 POTASSIUM 5.5 (H) 06/01/2016 POTASSIUM 5.0 05/31/2016 POTASSIUM 4.59 08/25/2003 POTASSIUM 4.20 08/24/2003 POTASSIUM 4.70 08/24/2003 Lab Results Component Value Date HGB 8.8 (L) 02/24/2025 HGB 8.1 (L) 02/21/2025 HGB 8.2 (L) 02/20/2025 HGB 9.8 (L) 08/07/2016 HGB 9.3 06/05/2016 HGB 8.9 (L) 06/01/2016 HGB 9.0 (L) 05/31/2016 IRONSATURAT 47 02/12/2023 IRONSATURAT 5 (L) 05/03/2016 FERRITIN 224.3 09/12/2021 FERRITIN 726 (H) 05/03/2016 Lab Results Component Value Date PHOSPHORUS 2.8 02/24/2025 PHOSPHORUS 3.2 02/21/2025 PHOSPHORUS 3.3 05/02/2016 PHOSPHORUS 4.0 05/01/2016 CALCIUM 8.6 02/24/2025 CALCIUM 8.3 (L) 02/21/2025 CALCIUM 9.4 08/07/2016 CALCIUM 9.4 06/01/2016 PTH 283.6 (H) 02/04/2023 PTH 101.8 (H) 09/13/2021 PTH 87.2 (H) 05/15/2016 BP Readings from Last 3 Encounters: 02/25/25 102/52 12/19/24 115/55 10/22/24 122/48 Physical Exam: BP 102/52 Pulse 71 Temp 97.9 F (36.6 C) (Oral) Resp (!) 32 Ht 1.702 m (5' 7.01) Wt 78.9 kg (173 lb 15.1 oz) SpO2 99% BMI 27.24 kg/m Smoking Status Never Gen: NAD Heart: audible heart sounds, no edema Lungs: CTAB Abd: soft, NT Neuro: Awake and alert Access: RIJ TDC ALPRAZolam 1 mg Oral QHS [Held by provider] calcium acetate - Phos Binder 667 mg Oral TID w/meals Cinacalcet 30 mg Oral Once per day on Sunday Cyclobenzaprine 10 mg Oral Q12H [START ON 02/26/2025] dialysate Dialysis Once in dialysis Doxycycline monohydrate 100 mg Oral Q12H Fluconazole 200 mg Oral QHS Lactulose 10 g Oral BID Levothyroxine 75 mcg Oral Before BKF Midodrine HCl 10 mg Oral Once per day on Sunday Pantoprazole 40 mg Oral BID vitamin C/B complex/folic acid (VIRT-CAPS) 1 capsule Oral Daily [START ON 02/26/2025] warfarin 2 mg Oral Once per day on Sunday And [START ON 02/28/2025] Warfarin 1 mg Oral Once per day on Sunday Warfarin 4 mg Oral Daily early evening MARIA EUGENIA LANDRY M.D,ALEJANDRO Attending Nephrology Hospital Medicine Progress Note Patient: Christian Amador, : 1950, Impression / Plan Christian Amador is a 74 y.o. 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 He presented to OSH with fatigue and was transferred to [facility] for pleural fluid collection that was found to be chronic. He was found to have metapneumo virus infection. Also found to have acute on chronic anemia in setting of hematochezia for which he underwent colonoscopy which was inconclusive. He remains inpatient for heparin gtt bridge to home warfarin. S/p Mechanical MV Subtherapeutic INR INR goal 2.5-3.5, INR 1.7 on admission. On warfarin at home with regimen of 2mg M-F, 1mg on Sat and Sun (12mg total weekly dose). Stable dose regimen and no other medication or diet changes recently - heparin gtt to bridge until therapeutic on home warfarin (high risk medication requiring monitoring for toxicity) - pharmacy consulted for assistance with warfarin management and dose adjustments. Had been giving 4mg daily (double home dose) for several days without much movement. gave 8mg 02/24. Will give 4mg today 02/25 Acute blood loss anemia 2/2 rectal bleeding Stenosis and ulceration of sigmoid colon c/f ischemia Bleeding external and internal hemorrhoids Hb back in Nov was 11, Hb 7.3 on admission and has remained stable. GI consulted and patient underwent colonoscopy which revealed area of stenosis and possible ischemia in sigmoid colon, unable to pass camera beyond stenosis. EGD revealed PHG. - await colon pathology results. Repeat cscope date to be determined by GI pending path results and based on clinical status at that time (needs referral for GI follow up at discharge) MADRID cirrhosis of liver MELD 26 - Continue lactulose - EGD this admission with PHG but no varices. No BB 2/2 hypotension - HCC screening UTD Metapneumovirus infection Supportive care, isolation Chronic pleural effusion Effusion is chronic and stable since at least CT Chest in January 2023. Pleural fluid was exudative at that time with no evidence of malignant cells on cytology. Thoracic consulted and pt is not a candidate for VATS. His current symptoms are more likely to be related to his viral infection than to this effusion ESRD on home dialysis - Neph consulted - Midodrine with HD - Continue cinacalcet, phos binder (sub formulary option) Atrial fibrillation s/p AVN ablation, PPM on AC as above MRSA bacteremia on life long suppressive antibiotics Continue home doxy History of fungemia on chronic fluconazole Continue home fluconazole Insomnia continue home xanax nightly Complexity Hypothyroidism - Continue thyroid replacement. Any conditions listed below are present on admission unless otherwise specified. Medical Readiness For Discharge: Anticipated in 5+ Days DVT prophylaxis with hep gtt -> warfarin Anticipated Disposition: home when INR 2.5 Code status is Full Code Hien Anderson MD [facility] [id number] Interval History / Subjective No new issues INR 1.3 Seen this afternoon after HD Objective Temp: [97.7 F (36.5 C)-98.6 F (37 C)] 97.7 F (36.5 C) Pulse (Heart Rate): [69-84] 73 Resp Rate: [16-36] 20 BP: (88-130)/(45-64) 97/51 O2 Sat (%): [94 %-100 %] 98 % Physical Exam Gen: A, A, NAD ENT: MMM Resp: normal effort on room air Cardio: RRR, WWP Psych: Ox3, appropriate affect and cognition Data Review Ptt/Pt/Inr: 79.7/15.8/1.3 (02/24 2307-02/25 1135) Follow up Note: Diagnosis: ESRD on dialysis currently hospitalized for workup of hematochezia./pleural effusion Remains hospitalized to get his INR therapeutic Subjective: Feels ok today, no chest pain no sob denies nausea or vommitting looks tired Plan: ESRD MTTS- HD Sunday , 3K, 2L UF (4x/week) Anemia of renal disease - Hb low, check iron saturation, start aranesp 60mcg/wk Secondary hyperparathyroidism - Phos at goal, continue phoslo, sensipar Blood pressure management in a patient with ESRD - acceptable, continue midodrine Access - RIJ TDC Nutrition - Nephronex/nephrocaps Pertinent Data/Labs: Lab Results Component Value Date POTASSIUM 4.0 02/24/2025 POTASSIUM 3.7 02/21/2025 POTASSIUM 4.0 02/20/2025 POTASSIUM 5.34 (H) 09/15/2021 POTASSIUM 4.8 08/07/2016 POTASSIUM 6.8 06/06/2016 POTASSIUM 6.6 06/05/2016 POTASSIUM 5.5 (H) 06/01/2016 POTASSIUM 5.0 05/31/2016 POTASSIUM 4.59 08/25/2003 POTASSIUM 4.20 08/24/2003 POTASSIUM 4.70 08/24/2003 Lab Results Component Value Date HGB 8.8 (L) 02/24/2025 HGB 8.1 (L) 02/21/2025 HGB 8.2 (L) 02/20/2025 HGB 9.8 (L) 08/07/2016 HGB 9.3 06/05/2016 HGB 8.9 (L) 06/01/2016 HGB 9.0 (L) 05/31/2016 IRONSATURAT 47 02/12/2023 IRONSATURAT 5 (L) 05/03/2016 FERRITIN 224.3 09/12/2021 FERRITIN 726 (H) 05/03/2016 Lab Results Component Value Date PHOSPHORUS 2.8 02/24/2025 PHOSPHORUS 3.2 02/21/2025 PHOSPHORUS 3.3 05/02/2016 PHOSPHORUS 4.0 05/01/2016 CALCIUM 8.6 02/24/2025 CALCIUM 8.3 (L) 02/21/2025 CALCIUM 9.4 08/07/2016 CALCIUM 9.4 06/01/2016 PTH 283.6 (H) 02/04/2023 PTH 101.8 (H) 09/13/2021 PTH 87.2 (H) 05/15/2016 BP Readings from Last 3 Encounters: 02/24/25 98/50 12/19/24 115/55 10/22/24 122/48 Physical Exam: BP 98/50 (BP Location: Left arm, BP Position: Lying) Pulse 72 Temp 97.8 F (36.6 C) (Oral) Resp 16 Ht 1.702 m (5' 7.01) Wt 78.9 kg (173 lb 15.1 oz) SpO2 94% BMI 27.24 kg/m Smoking Status Never Gen: NAD Heart: audible heart sounds, no edema Lungs: CTAB Abd: soft, NT Neuro: Awake and alert Access: RIJ TDC ALPRAZolam 1 mg Oral QHS [Held by provider] calcium acetate - Phos Binder 667 mg Oral TID w/meals Cinacalcet 30 mg Oral Once per day on Sunday Cyclobenzaprine 10 mg Oral Q12H Doxycycline monohydrate 100 mg Oral Q12H Fluconazole 200 mg Oral QHS Lactulose 10 g Oral BID Levothyroxine 75 mcg Oral Before BKF Midodrine HCl 10 mg Oral Once per day on Sunday Pantoprazole 40 mg Oral BID vitamin C/B complex/folic acid (VIRT-CAPS) 1 capsule Oral Daily warfarin 2 mg Oral Once per day on Sunday And [START ON 02/28/2025] Warfarin 1 mg Oral Once per day on Sunday Warfarin 6 mg Oral Daily early evening MARIA EUGENIA LANDRY M.D,KATHRINEN Attending Nephrology [facility] Progress Note Patient: Christian Amador, : 1950, Impression / Plan Christian Amador is a 74 y.o. 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 He presented to OSH with fatigue and was transferred to [facility] for pleural fluid collection that was found to be chronic. He was found to have metapneumo virus infection. Also found to have acute on chronic anemia in setting of hematochezia for which he underwent colonoscopy which was inconclusive. He remains inpatient for heparin gtt bridge to home warfarin. S/p Mechanical MV Subtherapeutic INR INR goal 2.5-3.5, INR 1.7 on admission. On warfarin at home with regimen of 2mg M-F, 1mg on Sat and Sun (12mg total weekly dose) - heparin gtt to bridge until therapeutic on home warfarin (high risk medication requiring monitoring for toxicity) - pharmacy consulted for assistance with warfarin management and dose adjustments. Will give 8mg today 02/24 as his INR has not increased after several days of 4mg. Additionally, pt reports in past he has needed up to 10mg daily x3 days for his INR to increase Acute blood loss anemia 2/2 rectal bleeding Stenosis and ulceration of sigmoid colon c/f ischemia Bleeding external and internal hemorrhoids Hb back in Nov was 11, Hb 7.3 on admission and has remained stable. GI consulted and patient underwent colonoscopy which revealed area of stenosis and possible ischemia in sigmoid colon, unable to pass camera beyond stenosis. EGD revealed PHG. - await colon pathology results. Repeat cscope date to be determined by GI pending path results and based on clinical status at that time (needs referral for GI follow up at discharge) MADRID cirrhosis of liver MELD 26 - Continue lactulose - EGD this admission with PHG but no varices. No BB 2/2 hypotension - HCC screening UTD Metapneumovirus infection Supportive care, isolation Chronic pleural effusion Effusion is chronic and stable since at least CT Chest in January 2023. Pleural fluid was exudative at that time with no evidence of malignant cells on cytology. Thoracic consulted and pt is not a candidate for VATS. His current symptoms are more likely to be related to his viral infection than to this effusion ESRD on home dialysis - Neph consulted - Midodrine with HD - Continue cinacalcet, phos binder (sub formulary option) Atrial fibrillation s/p AVN ablation, PPM on AC as above MRSA bacteremia on life long suppressive antibiotics Continue home doxy History of fungemia on chronic fluconazole Continue home fluconazole Insomnia continue home xanax nightly Complexity Hypothyroidism - Continue thyroid replacement. Any conditions listed below are present on admission unless otherwise specified. Medical Readiness For Discharge: Anticipated in 5+ Days DVT prophylaxis with hep gtt -> warfarin Anticipated Disposition: home when INR 2.5 Code status is Full Code Hien Anderson MD [facility] [id number] Interval History / Subjective No new issues INR 1.2 at bedside Objective Temp: [97.5 F (36.4 C)-98.4 F (36.9 C)] 97.8 F (36.6 C) Pulse (Heart Rate): [69-82] 72 Resp Rate: [16-30] 16 BP: (86-111)/(47-64) 98/50 O2 Sat (%): [93 %-100 %] 94 % Physical Exam Gen: A, A, NAD ENT: MMM Resp: normal effort on room air Cardio: RRR, WWP Psych: Ox3, appropriate affect and cognition Data Review WBC/Hgb/Hct/Plts: 6.26/8.8/28.9/159 (04/08 0002) Na/K+/Phos/Mg/Ca: 139/4.0/2.8/1.8/8.6 (02/24 0002) Bun/Creat/Cl/CO2/Glucose: 17/3.74/99/27/81 (02/24 2) Ptt/Pt/Inr: 75.1/15.5/1.2 (02/24 0433-02/24 104) ESRD Note: Diagnosis: ESRD on dialysis currently hospitalized for workup of hematochezia. Remains hospitalized to get his INR therapeutic Subjective: Feels ok today, seen prior to dialysis Plan: ESRD MTTS- HD today, 3K, 2L UF (4x/week) Anemia of renal disease - Hb low, check iron saturation, start aranesp 60mcg/wk Secondary hyperparathyroidism - Phos at goal, continue phoslo, sensipar Blood pressure management in a patient with ESRD - acceptable, continue midodrine Access - RIJ TDC Nutrition - Nephronex/nephrocaps Pertinent Data/Labs: Lab Results Component Value Date POTASSIUM 3.7 02/21/2025 POTASSIUM 4.0 02/20/2025 POTASSIUM 3.8 02/19/2025 POTASSIUM 5.34 (H) 09/15/2021 POTASSIUM 4.8 08/07/2016 POTASSIUM 6.8 06/06/2016 POTASSIUM 6.6 06/05/2016 POTASSIUM 5.5 (H) 06/01/2016 POTASSIUM 5.0 05/31/2016 POTASSIUM 4.59 08/25/2003 POTASSIUM 4.20 08/24/2003 POTASSIUM 4.70 08/24/2003 Lab Results Component Value Date HGB 8.1 (L) 02/21/2025 HGB 8.2 (L) 02/20/2025 HGB 8.0 (L) 02/19/2025 HGB 9.8 (L) 08/07/2016 HGB 9.3 06/05/2016 HGB 8.9 (L) 06/01/2016 HGB 9.0 (L) 05/31/2016 IRONSATURAT 47 02/12/2023 IRONSATURAT 5 (L) 05/03/2016 FERRITIN 224.3 09/12/2021 FERRITIN 726 (H) 05/03/2016 Lab Results Component Value Date PHOSPHORUS 3.2 02/21/2025 PHOSPHORUS 2.1 (L) 02/20/2025 PHOSPHORUS 3.3 05/02/2016 PHOSPHORUS 4.0 05/01/2016 CALCIUM 8.3 (L) 02/21/2025 CALCIUM 8.0 (L) 02/14/2025 CALCIUM 9.4 08/07/2016 CALCIUM 9.4 06/01/2016 PTH 283.6 (H) 02/04/2023 PTH 101.8 (H) 09/13/2021 PTH 87.2 (H) 05/15/2016 BP Readings from Last 3 Encounters: 02/23/25 102/51 12/19/24 115/55 10/22/24 122/48 Physical Exam: BP 102/51 Pulse 69 Temp 97.3 F (36.3 C) (Oral) Resp (!) 26 Ht 1.702 m (5' 7.01) Wt 78.9 kg (173 lb 15.1 oz) SpO2 100% BMI 27.24 kg/m Smoking Status Never Gen: NAD Heart: audible heart sounds, no edema Lungs: CTAB Abd: soft, NT Neuro: Awake and alert Access: RIJ TDC ALPRAZolam 1 mg Oral QHS [Held by provider] calcium acetate - Phos Binder 667 mg Oral TID w/meals Cinacalcet 30 mg Oral Once per day on Sunday Cyclobenzaprine 10 mg Oral Q12H [START ON 02/26/2025] dialysate Dialysis Once in dialysis Doxycycline monohydrate 100 mg Oral Q12H Fluconazole 200 mg Oral QHS Lactulose 10 g Oral BID Levothyroxine 75 mcg Oral Before BKF Midodrine HCl 10 mg Oral Once per day on Sunday Pantoprazole 40 mg Oral BID vitamin C/B complex/folic acid (VIRT-CAPS) 1 capsule Oral Daily warfarin 2 mg Oral Once per day on Sunday And [START ON 02/28/2025] Warfarin 1 mg Oral Once per day on Sunday ROSE Browne, MS Attending [employer] NUTRITION RISK SCREENING NOTE Pt with identified nutrition risk factors: Current admit, PMHx, and Low Fabian score Nutrition Plan of Care: 1. Continue current diet order. 2. No oral supplements warranted at this time. 3. Monitor for significant weight changes. 4. Monitor GI and skin integrity. 5. Monitor and encourage po intakes with goal of average po being 75%. 6. Cooperer to follow. Christian Amador is a 74 y.o. male admitted with a PMH of ESRD on home dialysis, atrial fibrillation s/p AVN ablation and PPM, MRSA bacteremia on life long suppressive antibiotics, fungemia on chronic fluconazole, mechanical mitral valve, and MADRID cirrhosis of liver, presented to OSH with fatigue, transferred to [facility] for pleural fluid collection that was found to be chronic. Also found to have acute on chronic anemia in setting of hematochezia. Past medical history reviewed in chart. Pt is being seen for nutrition screen due to the following: admission 7 days or greater Nutrition Risk Factor Screening Met with patient today at bedside wearing mask to obtain following information: Pt's appetite is good. Pt with no nausea, vomiting, diarrhea or constipation GI: Last Bowel Movement: 02/22/25 Pt with no issues with chewing and/or swallowing Food Allergies reviewed:None Cultural or Uatsdin Restrictions/Preferences: None Pt reports weight loss of 1 lbs in 10 days . Nutrition Risk Screening (MST) Have you recently lost weight without trying?: 0- no Have you been eating poorly because of decreased appetite?: 0- No Malnutrition Screening Tool Score: 0 Skin Assessment Fabian Score: 18 STAND skin bundle initiated Active Wounds: Wound Skin Tear 02/03/23 1515 Midline;Posterior Buttocks (751) Wound Surgical 02/13/23 0820 incision Left Back (741) Edema none I/O Net IO Since Admission: -2,684.15 mL [02/23/25 1514] Additional Information Pt stated having a good appetite/PO and has been consuming 100% of most all meals this admission. Pt has no other nutritional concerns and denies N/V, diarrhea, constipation,chewing/swallow issues or severe weight changes over the past three months. Follow for tolerance to PO and weight changes. Current Diet Order DIET PHOSPHORUS AND POTASSIUM RESTRICTED (RENAL) Anthropometrics Height: 170.2 cm (5' 7.01) Admit wt: 174 lb IBW: 148 lb %IBW: 118% BMI: 27.2 UBW: 174 lb %UBW: 100% Wt Readings from Last 10 Encounters: 02/17/25 78.9 kg (173 lb 15.1 oz) 12/18/24 79.2 kg (174 lb 8 oz) 10/22/24 78.9 kg (174 lb) 04/16/24 (P) 78.9 kg (174 lb) 04/02/24 76.5 kg (168 lb 10.4 oz) 03/24/24 77.1 kg (169 lb 15.6 oz) 12/05/23 77.1 kg (170 lb) 07/13/23 79.4 kg (175 lb) 02/12/23 74.4 kg (164 lb 0.4 oz) 01/15/23 79.4 kg (175 lb) PAMELA Greenberg Pager:[phone] [facility] Progress Note Patient: Christian Amador, : 1950, Impression / Plan Christian Amador is a 74 y.o. 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 He presented to OSH with fatigue and was transferred to [facility] for pleural fluid collection that was found to be chronic. He was found to have metapneumo virus infection. Also found to have acute on chronic anemia in setting of hematochezia for which he underwent colonoscopy which was inconclusive. He remains inpatient for heparin gtt bridge to home warfarin. S/p Mechanical MV Subtherapeutic INR INR goal 2.5-3.5, INR 1.7 on admission. On warfarin at home with regimen of 2mg M-F, 1mg on Sat and Sun (12mg total weekly dose) - heparin gtt to bridge until therapeutic on home warfarin (high risk medication requiring monitoring for toxicity) - pharmacy consulted for assistance with warfarin management and dose adjustments Acute blood loss anemia 2/2 rectal bleeding Stenosis and ulceration of sigmoid colon c/f ischemia Bleeding external and internal hemorrhoids Hb back in Nov was 11, Hb 7.3 on admission and has remained stable. GI consulted and patient underwent colonoscopy which revealed area of stenosis and possible ischemia in sigmoid colon, unable to pass camera beyond stenosis. EGD revealed PHG. - await colon pathology results. Repeat cscope date to be determined by GI pending path results and based on clinical status at that time (needs referral for GI follow up at discharge) MADRID cirrhosis of liver MELD 26 - Continue lactulose - EGD this admission with PHG but no varices. No BB 2/2 hypotension - HCC screening UTD Metapneumovirus infection Supportive care, isolation Chronic pleural effusion Effusion is chronic and stable since at least CT Chest in January 2023. Pleural fluid was exudative at that time with no evidence of malignant cells on cytology. Thoracic consulted and pt is not a candidate for VATS. His current symptoms are more likely to be related to his viral infection than to this effusion ESRD on home dialysis - Neph consulted - Midodrine with HD - Continue cinacalcet, phos binder (sub formulary option) Atrial fibrillation s/p AVN ablation, PPM on AC as above MRSA bacteremia on life long suppressive antibiotics Continue home doxy History of fungemia on chronic fluconazole Continue home fluconazole Insomnia continue home xanax nightly Complexity Hypomagnesemia - Continue to monitor and replete. Hypocalcemia - Continue to monitor and replete. Thrombocytopenia - Continue to monitor. Hypothyroidism - Continue thyroid replacement. Any conditions listed below are present on admission unless otherwise specified. Medical Readiness For Discharge: Anticipated in 5+ Days DVT prophylaxis with hep gtt -> warfarin Anticipated Disposition: home when INR 2.5 Code status is Full Code Hien Anderson MD [facility] [id number] Interval History / Subjective No new issues INR 1.1 Objective Temp: [97.3 F (36.3 C)-98.3 F (36.8 C)] 98.2 F (36.8 C) Pulse (Heart Rate): [69-95] 71 Resp Rate: [16] 16 BP: (92-113)/(48-57) 110/53 O2 Sat (%): [94 %-100 %] 96 % Physical Exam Gen: A, A, NAD ENT: MMM Resp: normal effort on room air Cardio: RRR, WWP Psych: Ox3, appropriate affect and cognition Data Review Ptt/Pt/Inr: 41.8/14.5/1.1 (02/23 0417-02/23 0548) [facility] Progress Note Patient: Christian Amador, : 1950, Impression / Plan Christian Amador is a 74 y.o. 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 He presented to OSH with fatigue and was transferred to [facility] for pleural fluid collection that was found to be chronic. He was found to have metapneumo virus infection. Also found to have acute on chronic anemia in setting of hematochezia for which he underwent colonoscopy which was inconclusive. He remains inpatient for heparin gtt bridge to home warfarin. S/p Mechanical MV Subtherapeutic INR INR goal 2.5-3.5, INR 1.7 on admission. On warfarin at home with regimen of 2mg M-F, 1mg on Sat and Sun (12mg total weekly dose) - heparin gtt to bridge until therapeutic on home warfarin (high risk medication requiring monitoring for toxicity) - pharmacy consulted for assistance with warfarin management and dose adjustments Acute blood loss anemia 2/2 rectal bleeding Stenosis and ulceration of sigmoid colon c/f ischemia Bleeding external and internal hemorrhoids Hb back in Nov was 11, Hb 7.3 on admission and has remained stable. GI consulted and patient underwent colonoscopy which revealed area of stenosis and possible ischemia in sigmoid colon, unable to pass camera beyond stenosis. EGD revealed PHG. - await colon pathology results. Repeat cscope date to be determined by GI pending path results and based on clinical status at that time (needs referral for GI follow up at discharge) MADRID cirrhosis of liver MELD 26 - Continue lactulose - EGD this admission with PHG but no varices. No BB 2/2 hypotension - HCC screening UTD Metapneumovirus infection Supportive care, isolation Chronic pleural effusion Effusion is chronic and stable since at least CT Chest in January 2023. Pleural fluid was exudative at that time with no evidence of malignant cells on cytology. Thoracic consulted and pt is not a candidate for VATS. His current symptoms are more likely to be related to his viral infection than to this effusion ESRD on home dialysis - Neph consulted - Midodrine with HD - Continue cinacalcet, phos binder (sub formulary option) Atrial fibrillation s/p AVN ablation, PPM on AC as above MRSA bacteremia on life long suppressive antibiotics Continue home doxy History of fungemia on chronic fluconazole Continue home fluconazole Insomnia continue home xanax nightly Complexity Hypomagnesemia - Continue to monitor and replete. Hypocalcemia - Continue to monitor and replete. Thrombocytopenia - Continue to monitor. Hypothyroidism - Continue thyroid replacement. Any conditions listed below are present on admission unless otherwise specified. Medical Readiness For Discharge: Anticipated in 5+ Days DVT prophylaxis with hep gtt -> warfarin Anticipated Disposition: home when INR 2.5 Code status is Full Code Hien Anderson MD [facility] [id number] Interval History / Subjective No new issues INR 1.1 Objective Temp: [97.2 F (36.2 C)-98.2 F (36.8 C)] 98.1 F (36.7 C) Pulse (Heart Rate): [69-77] 75 Resp Rate: [14-55] 16 BP: (94-118)/(46-66) 109/55 O2 Sat (%): [94 %-100 %] 94 % Physical Exam Gen: A, A, NAD ENT: MMM Resp: normal effort on room air Cardio: RRR, WWP Psych: Ox3, appropriate affect and cognition Data Review Ptt/Pt/Inr: 74.0/14.2/1.1 (02/23 132-02/22 829) ESRD Note: Diagnosis: ESRD on dialysis currently hospitalized for workup of hematochezia Subjective: seen on floor prior to dialysis, feeling weak. SOB at baseline. Not lightheaded or dizzy. Plan: ESRD MTTS- HD today, 3K, 2L UF (4x/week) Anemia of renal disease - Hb low, aranesp 60mcg/wk Secondary hyperparathyroidism - Phos at goal, continue phoslo, sensipar Blood pressure management in a patient with ESRD - acceptable, continue midodrine Access - RIJ TDC Nutrition - Nephronex/nephrocaps Pertinent Data/Labs: Lab Results Component Value Date POTASSIUM 3.7 02/21/2025 POTASSIUM 4.0 02/20/2025 POTASSIUM 3.8 02/19/2025 POTASSIUM 5.34 (H) 09/15/2021 POTASSIUM 4.8 08/07/2016 POTASSIUM 6.8 06/06/2016 POTASSIUM 6.6 06/05/2016 POTASSIUM 5.5 (H) 06/01/2016 POTASSIUM 5.0 05/31/2016 POTASSIUM 4.59 08/25/2003 POTASSIUM 4.20 08/24/2003 POTASSIUM 4.70 08/24/2003 Lab Results Component Value Date HGB 8.1 (L) 02/21/2025 HGB 8.2 (L) 02/20/2025 HGB 8.0 (L) 02/19/2025 HGB 9.8 (L) 08/07/2016 HGB 9.3 06/05/2016 HGB 8.9 (L) 06/01/2016 HGB 9.0 (L) 05/31/2016 IRONSATURAT 47 02/12/2023 IRONSATURAT 5 (L) 05/03/2016 FERRITIN 224.3 09/12/2021 FERRITIN 726 (H) 05/03/2016 Lab Results Component Value Date PHOSPHORUS 3.2 02/21/2025 PHOSPHORUS 2.1 (L) 02/20/2025 PHOSPHORUS 3.3 05/02/2016 PHOSPHORUS 4.0 05/01/2016 CALCIUM 8.3 (L) 02/21/2025 CALCIUM 8.0 (L) 02/14/2025 CALCIUM 9.4 08/07/2016 CALCIUM 9.4 06/01/2016 PTH 283.6 (H) 02/04/2023 PTH 101.8 (H) 09/13/2021 PTH 87.2 (H) 05/15/2016 BP Readings from Last 3 Encounters: 02/21/25 118/53 12/19/24 115/55 10/22/24 122/48 Physical Exam: BP 118/53 (BP Location: Right arm, BP Position: Lying) Pulse 71 Temp 98.1 F (36.7 C) (Oral) Resp 22 Ht 1.702 m (5' 7.01) Wt 78.9 kg (173 lb 15.1 oz) SpO2 94% BMI 27.24 kg/m Smoking Status Never Gen: NAD HEENT: MMM, no icterus or pallor Heart: regular, no edema Lungs: Comfortable breathing, no wheezing Abd: soft, NT Neuro: Awake and alert Access: RIJ TDC ALPRAZolam 1 mg Oral QHS [Held by provider] calcium acetate - Phos Binder 667 mg Oral TID w/meals Cinacalcet 30 mg Oral Once per day on Sunday Cyclobenzaprine 10 mg Oral Q12H Doxycycline monohydrate 100 mg Oral Q12H Fluconazole 200 mg Oral QHS Lactulose 10 g Oral BID Levothyroxine 75 mcg Oral Before BKF Midodrine HCl 10 mg Oral Once per day on Sunday Pantoprazole 40 mg Oral BID vitamin C/B complex/folic acid (VIRT-CAPS) 1 capsule Oral Daily [START ON 02/23/2025] warfarin 2 mg Oral Once per day on Sunday And Warfarin 1 mg Oral Once per day on Sunday Kaveh Perez MD Division of Nephrology [facility] Medicine Progress Note Patient: Christian Amador, : 1950, Impression / Plan Christian Amador is a 74 y.o. 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 He presented to OSH with fatigue and was transferred to [facility] for pleural fluid collection that was found to be chronic. He was found to have metapneumo virus infection. Also found to have acute on chronic anemia in setting of hematochezia for which he underwent colonoscopy which was inconclusive. He remains inpatient for heparin gtt bridge to home warfarin. S/p Mechanical MV Subtherapeutic INR INR goal 2.5-3.5, INR 1.7 on admission. On warfarin at home with regimen of 2mg M-F, 1mg on Sat and Sun (12mg total weekly dose) - heparin gtt to bridge until therapeutic on home warfarin (high risk medication requiring monitoring for toxicity) - pharmacy consulted for assistance with warfarin management and dose adjustments Acute blood loss anemia 2/2 rectal bleeding Stenosis and ulceration of sigmoid colon c/f ischemia Bleeding external and internal hemorrhoids Hb back in Nov was 11, Hb 7.3 on admission and has remained stable. GI consulted and patient underwent colonoscopy which revealed area of stenosis and possible ischemia in sigmoid colon, unable to pass camera beyond stenosis. EGD revealed PHG. - await colon pathology results. Repeat cscope date to be determined by GI pending path results and based on clinical status at that time (needs referral for GI follow up at discharge) MADRID cirrhosis of liver MELD 26 - Continue lactulose - EGD this admission with PHG but no varices. No BB 2/2 hypotension - HCC screening UTD Metapneumovirus infection Supportive care, isolation Chronic pleural effusion Effusion is chronic and stable since at least CT Chest in January 2023. Pleural fluid was exudative at that time with no evidence of malignant cells on cytology. Thoracic consulted and pt is not a candidate for VATS. His current symptoms are more likely to be related to his viral infection than to this effusion ESRD on home dialysis - Neph consulted - Midodrine with HD - Do not have his home phos binder on formulary, starting Phoslo while amditted - Continue cinacalcet Atrial fibrillation s/p AVN ablation, PPM on AC as above MRSA bacteremia on life long suppressive antibiotics Continue home doxy History of fungemia on chronic fluconazole Continue home fluconazole Insomnia continue home xanax nightly Complexity Hypomagnesemia - Continue to monitor and replete. Hypocalcemia - Continue to monitor and replete. Thrombocytopenia - Continue to monitor. Hypothyroidism - Continue thyroid replacement. Any conditions listed below are present on admission unless otherwise specified. Medical Readiness For Discharge: Anticipated in 5+ Days DVT prophylaxis with hep gtt -> warfarin Anticipated Disposition: home when INR 2.5 Code status is Full Code Hien Anderson MD Hospital Medicine [id number] Interval History / Subjective No new issues INR 1.2, hb stable at bedside Objective Temp: [97.3 F (36.3 C)-98.5 F (36.9 C)] 98.5 F (36.9 C) Pulse (Heart Rate): [69-71] 71 Resp Rate: [16-18] 16 BP: (94-103)/(47-55) 101/55 O2 Sat (%): [94 %-100 %] 94 % Physical Exam Gen: A, A, NAD ENT: MMM Resp: normal effort on room air Cardio: RRR, WWP Psych: Ox3, appropriate affect and cognition Data Review WBC/Hgb/Hct/Plts: 8.97/8.1/27.2/141 (02/21 319) Na/K+/Phos/Mg/Ca: 135/3.7/3.2/1.5/8.3 (02/21 319) Bun/Creat/Cl/CO2/Glucose: 28/6.62/99/23/108 (02/21 319) Ptt/Pt/Inr: 93.9/14.8/1.2 (02/21 319-02/21 1014) Care Management Progress Note Plan of Care- Treatment Updates: Currently working on heparin drip bridge to home warfarin. INR must be 2.5-3.5 to be therapeutic. Patient's INR 1.1 today 02/20. Discharge updates: Patient to discharge home with spouse. Patient to resume home HD through [facility] dialysis. Spouse to provide transportation. Barriers: Medical readiness (therapeutic INR) Sarah ANGULO, CH[employer] Clinical Trials Nurse [phone] Available on secure chat. Hospital Medicine Progress Note Patient: Christian Amador, : 1950, Impression / Plan Christian Amador is a 74 y.o. 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 He presented to OSH with fatigue and was transferred to [facility] for pleural fluid collection that was found to be chronic. He was found to have metapneumo virus infection. Also found to have acute on chronic anemia in setting of hematochezia for which he underwent colonoscopy which was inconclusive. He remains inpatient for heparin gtt bridge to home warfarin. S/p Mechanical MV Subtherapeutic INR INR goal 2.5-3.5, INR 1.7 on admission. On warfarin at home with regimen of 2mg M-F, 1mg on Sat and Sun (12mg total weekly dose) - heparin gtt to bridge until therapeutic on home warfarin (high risk medication requiring monitoring for toxicity) - received 4mg warfarin 02/19 and will order again today 02/20. pharmacy consulted for assistance with warfarin management and dose adjustments Acute blood loss anemia 2/2 rectal bleeding Stenosis and ulceration of sigmoid colon c/f ischemia Bleeding external and internal hemorrhoids Hb back in Nov was 11, Hb 7.3 on admission and has remained stable. GI consulted and patient underwent colonoscopy which revealed area of stenosis and possible ischemia in sigmoid colon, unable to pass camera beyond stenosis. EGD revealed PHG. - await colon pathology results. Repeat cscope date to be determined by GI pending path results and based on clinical status at that time (needs referral for GI follow up at discharge) MADRID cirrhosis of liver MELD 26 - Continue lactulose - EGD this admission with PHG but no varices. No BB 2/2 hypotension - HCC screening UTD Metapneumovirus infection Supportive care, isolation Chronic pleural effusion Effusion is chronic and stable since at least CT Chest in January 2023. Pleural fluid was exudative at that time with no evidence of malignant cells on cytology. Thoracic consulted and pt is not a candidate for VATS. His current symptoms are more likely to be related to his viral infection than to this effusion ESRD on home dialysis - Neph consulted - Midodrine with HD - Do not have his home phos binder on formulary, starting Phoslo while amditted - Continue cinacalcet Atrial fibrillation s/p AVN ablation, PPM on AC as above MRSA bacteremia on life long suppressive antibiotics Continue home doxy History of fungemia on chronic fluconazole Continue home fluconazole Insomnia continue home xanax nightly Complexity Hypocalcemia - Continue to monitor and replete. Hypophosphatemia - Continue to monitor and replete. Hypothyroidism - Continue thyroid replacement. Any conditions listed below are present on admission unless otherwise specified. Medical Readiness For Discharge: Anticipated in 5+ Days DVT prophylaxis with hep gtt -> warfarin Anticipated Disposition: home when INR 2.5 Code status is Full Code Hien Anderson MD [facility] Medicine [id number] Interval History / Subjective No new issues INR 1.1, hb stable at bedside Objective Temp: [97.5 F (36.4 C)-98.7 F (37.1 C)] 97.8 F (36.6 C) Pulse (Heart Rate): [69-76] 71 Resp Rate: [16-27] 18 BP: (89-108)/(45-62) 101/62 O2 Sat (%): [94 %-99 %] 94 % Physical Exam Gen: A, A, NAD ENT: MMM Resp: normal effort on room air Cardio: RRR, WWP Psych: Ox3, appropriate affect and cognition Data Review WBC/Hgb/Hct/Plts: 9.07/8.2/27.2/169 (02/20 303) Na/K+/Phos/Mg/Ca: 137/4.0/2.1/1.7/-- (02/20 303) Bun/Creat/Cl/CO2/Glucose: 14/4.40/98/28/99 (02/20 303) Ptt/Pt/Inr: 88.2/14.5/1.1 (02/20 030-02/20 1009) Pt is currently a Home Hemo pt at [facility] . Pt will need to follow up with their Home Hemo RN at discharge. [facility] Medicine Progress Note Patient: Christian Amador, : 1950, Impression / Plan Christian Amador is a 74 y.o. 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 He presented to OSH with fatigue and was transferred to [facility] for pleural fluid collection that was found to be chronic. He was found to have metapneumo virus infection. Also found to have acute on chronic anemia in setting of hematochezia for which he underwent colonoscopy which was inconclusive. He remains inpatient for heparin gtt bridge to home warfarin. S/p Mechanical MV Subtherapeutic INR INR goal 2.5-3.5, INR 1.7 on admission. On warfarin at home with regimen of 2mg M-F, 1mg on Sat and Sun. - heparin gtt to bridge until therapeutic on home warfarin (high risk medication requiring monitoring for toxicity) - will increase home dose to 4mg tonight 4.3 and then back to home reg tomorrow Acute blood loss anemia 2/2 rectal bleeding Stenosis and ulceration of sigmoid colon c/f ischemia Bleeding external and internal hemorrhoids Hb back in Nov was 11, Hb 7.3 on admission and has remained stable. GI consulted and patient underwent colonoscopy which revealed area of stenosis and possible ischemia in sigmoid colon, unable to pass camera beyond stenosis. EGD revealed PHG. - await colon pathology results. Repeat cscope date to be determined by GI pending path results and based on clinical status at that time (needs referral for GI follow up at discharge) MADRID cirrhosis of liver MELD 26 - Continue lactulose - EGD this admission with PHG but no varices. No BB 2/2 hypotension - HCC screening UTD Metapneumovirus infection Supportive care, isolation Chronic pleural effusion Effusion is chronic and stable since at least CT Chest in January 2023. Pleural fluid was exudative at that time with no evidence of malignant cells on cytology. Thoracic consulted and pt is not a candidate for VATS. His current symptoms are more likely to be related to his viral infection than to this effusion ESRD on home dialysis - Neph consulted - Midodrine with HD - Do not have his home phos binder on formulary, starting Phoslo while amditted - Continue cinacalcet Atrial fibrillation s/p AVN ablation, PPM on AC as above MRSA bacteremia on life long suppressive antibiotics Continue home doxy History of fungemia on chronic fluconazole Continue home fluconazole Insomnia continue home xanax nightly Complexity Hypocalcemia - Continue to monitor and replete. Hypothyroidism - Continue thyroid replacement. Any conditions listed below are present on admission unless otherwise specified. Medical Readiness For Discharge: Anticipated in 2-4 Days DVT prophylaxis with hep gtt -> warfarin Anticipated Disposition: home when INR 2.5 Code status is Full Code Hien Anderson MD [facility] Medicine [id number] Interval History / Subjective Pt feeling tired today, didn't sleep much overnight due to coughing Going for HD today at bedside. Questions answered Objective Temp: [97.6 F (36.4 C)-99.4 F (37.4 C)] 97.7 F (36.5 C) Pulse (Heart Rate): [69-80] 69 Resp Rate: [16-27] 21 BP: (89-107)/(45-61) 101/53 O2 Sat (%): [92 %-99 %] 99 % Physical Exam Gen: A, A, NAD ENT: MMM Resp: normal effort on room air with few crackles at bases Cardio: RRR, +mechanical valve click, WWP GI: S/NT/ND, NABS Psych: Ox3, appropriate affect and cognition Data Review WBC/Hgb/Hct/Plts: 9.51/8.0/26.3/166 (02/19 423) Na/K+/Phos/Mg/Ca: 137/3.8/3.2/1.6/-- (02/19 423) Bun/Creat/Cl/CO2/Glucose: 27/7.51/99/25/93 (02/19 423) Ptt/Pt/Inr: 93.3/15.4/1.2 (02/19 423) ESRD Note: Diagnosis: ESRD on dialysis currently hospitalized for workup of hematochezia Subjective: Feels ok today, seen prior to dialysis Plan: ESRD MTTS- HD today, 3K, 2L UF (4x/week) Anemia of renal disease - Hb low, check iron saturation, start aranesp 60mcg/wk Secondary hyperparathyroidism - Phos at goal, continue phoslo, sensipar Blood pressure management in a patient with ESRD - acceptable, continue midodrine Access - RIJ TDC Nutrition - Nephronex/nephrocaps Pertinent Data/Labs: Lab Results Component Value Date POTASSIUM 3.8 02/19/2025 POTASSIUM 4.2 02/18/2025 POTASSIUM 4.1 02/17/2025 POTASSIUM 5.34 (H) 09/15/2021 POTASSIUM 4.8 08/07/2016 POTASSIUM 6.8 06/06/2016 POTASSIUM 6.6 06/05/2016 POTASSIUM 5.5 (H) 06/01/2016 POTASSIUM 5.0 05/31/2016 POTASSIUM 4.59 08/25/2003 POTASSIUM 4.20 08/24/2003 POTASSIUM 4.70 08/24/2003 Lab Results Component Value Date HGB 8.0 (L) 02/19/2025 HGB 8.2 (L) 02/18/2025 HGB 7.6 (L) 02/17/2025 HGB 9.8 (L) 08/07/2016 HGB 9.3 06/05/2016 HGB 8.9 (L) 06/01/2016 HGB 9.0 (L) 05/31/2016 IRONSATURAT 47 02/12/2023 IRONSATURAT 5 (L) 05/03/2016 FERRITIN 224.3 09/12/2021 FERRITIN 726 (H) 05/03/2016 Lab Results Component Value Date PHOSPHORUS 3.2 02/19/2025 PHOSPHORUS 2.7 02/18/2025 PHOSPHORUS 3.3 05/02/2016 PHOSPHORUS 4.0 05/01/2016 CALCIUM 8.0 (L) 02/14/2025 CALCIUM 7.5 (L) 02/13/2025 CALCIUM 9.4 08/07/2016 CALCIUM 9.4 06/01/2016 PTH 283.6 (H) 02/04/2023 PTH 101.8 (H) 09/13/2021 PTH 87.2 (H) 05/15/2016 BP Readings from Last 3 Encounters: 02/19/25 106/53 12/19/24 115/55 10/22/24 122/48 Physical Exam: BP 106/53 (BP Location: Left arm, BP Position: Lying) Pulse 80 Temp 97.7 F (36.5 C) (Oral) Resp 16 Ht 1.702 m (5' 7.01) Wt 78.9 kg (173 lb 15.1 oz) SpO2 95% BMI 27.24 kg/m Smoking Status Never Gen: NAD Heart: audible heart sounds, no edema Lungs: CTAB Abd: soft, NT Neuro: Awake and alert Access: RIJ TDC ALPRAZolam 1 mg Oral QHS calcium acetate - Phos Binder 667 mg Oral TID w/meals cefTRIAXone 1 g Intravenous Q24H Cinacalcet 30 mg Oral Once per day on Sunday Cyclobenzaprine 10 mg Oral Q12H Doxycycline monohydrate 100 mg Oral Q12H Fluconazole 200 mg Oral QHS Lactulose 10 g Oral BID Levothyroxine 75 mcg Oral Before BKF Midodrine HCl 10 mg Oral Once per day on Sunday Pantoprazole 40 mg Oral BID vitamin C/B complex/folic acid (VIRT-CAPS) 1 capsule Oral Daily warfarin 2 mg Oral Once per day on Sunday And Warfarin 1 mg Oral Once per day on Sunday ROSE Browne, MS Attending [employer]itor [employer] [facility] Medicine Progress Note Patient: Christian Amador, : 1950, Impression / Plan Christian Amador is a 74 y.o. male with a PMH of ESRD on home dialysis, atrial fibrillation s/p AVN ablation and PPM, MRSA bacteremia on life long suppressive antibiotics, fungemia on chronic fluconazole, mechanical mitral valve, and MADRID cirrhosis of liver, presented to OSH with fatigue, transferred to [facility] for pleural fluid collection that was found to be chronic. Also found to have acute on chronic anemia in setting of hematochezia. Fatigue/weakness Hematochezia Acute blood loss anemia Pt has known external hemorrhoids. Hb back in Nov was 11, Hb 7.3 on admission and has remained stable. - No recent colonoscopies seen in our system - Blood consent completed - monitor H/H, type and screen --H/H has remained stable - GI consulted-- -s/p EGD and colonoscopy -Area of stenosis and possible ischemia unable to pass in colonoscopy -Ulceration noted -Continue IV PPI until GI update -Resume regular diet per report recs -Follow up recs regarding colonoscopy findings -check folate- WNL/B12- c/w supplenentation today given macrocytosis Chronic pleural effusion Effusion is chronic as it was present at least [address] Chest, noted on CT Chest in January 2023 on L side. Pleural fluid was exudative at that time with no evidence of malignant cells on cytology. Thought secondary to PNA, completed tx with ceftriaxone x2 weeks and had chest tube placed for drainage. Although he has cough, he has not had fever and is on RA, breathing comfortably so holding off on antibiotics for now. - Thoracic consulted-- not a candidate for VATS - Pulm consulted-- did not recommend Chest tube- should re establish with pulm outpatient - Holding off on antibiotics for now -Check LRCX and RVP. Unable to get legionella/step Ag due to being anuric. -metapneumovirus positive- supportive care. Likely accounts for some of his fatigue/weakness. Metapneumovirus infection -supportive care, isolation Mechanical MV INR goal 2.5-3.5, INR 1.7 on admission. On warfarin at home with regimen of 2mg M-F, 1mg on Sat and Sun. - Resuming warfarin today, monitor INR - heparin gtt to bridge until therapeutic ESRD on home dialysis Pt reports he does HD at home 4x weekly. - Neph consulted - Midodrine with HD - Do not have his home phos binder on formulary, starting Phoslo while amditted - Continue cinacalcet Atrial fibrillation s/p AVN ablation PPM - on AC as above. Holding for colonoscopy MRSA bacteremia on life long suppressive antibiotics - Continue home doxy History of fungemia on chronic fluconazole - Continue home fluconazole MADRID cirrhosis of liver MELD 26 - Continue lactulose - No evidence of ascites on exam - Dec HCC screening negative Complexity Hypocalcemia - Continue to monitor and replete. Hypothyroidism - Continue thyroid replacement. Medical Readiness For Discharge: Anticipated in 2-4 Days DVT prophylaxis with currently on heparin gtt Anticipated Disposition: home Code status is Full Code Interval History / Subjective No acute events overnight, updated pt and his on plans Objective Temp: [97.5 F (36.4 C)-99.1 F (37.3 C)] 98.3 F (36.8 C) Pulse (Heart Rate): [69-74] 70 Resp Rate: [16-31] 16 BP: (92-113)/(47-63) 100/55 O2 Sat (%): [90 %-100 %] 93 % Physical Exam Gen: Sleeping after anesthesia, wakes easily Eyes:EOMI, no icterus ENT:MMM, trachea midline Resp: Decreased but coarse breath sounds in L lung field, normal respiratory effort Cardio: RRR, normal S1, S2, no M/R/G. No KVNG. GI:S/NT/ND Skin:No jaundice or rash Neuro: No focal deficits Psych:Ox3, appropriate affect and cognition Data Review WBC/Hgb/Hct/Plts: 9.23/8.2/26.8/186, 188 (02/18 530) Na/K+/Phos/Mg/Ca: 136/4.2/2.7/1.7/-- (02/18 537) Bun/Creat/Cl/CO2/Glucose: 16/4.82/98/25/84 (02/18 537) Ptt/Pt/Inr: 80.4/16.7/1.4 (02/18 0559-02/19 932) Dialysis Note: Patient seen on hemodialysis. Chart and flowsheet reviewed. Tolerating procedure well. Patient denies CP. SOB. And and N/V/D. Indication of Dialysis: ESRD Ix: Clearance and Volume UF (kg): 2L K (meq): 3mEq Filter: Optiflux BFR (ml/min): 400 DFR (ml/min): 800 Access: Rt TDC ESRD - On HHD 4 times a week 3 hours dry weight 75.5 kg -HD today and continue TTS schedule -check weight daily and after each dialysis treatment -check chem 6 daily while admitted -keep strict Is and Os -give nephrocaps/nephronex daily -low Na, low K, low phos, high protein diet. 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 Thank you, Kelby Elizondo APRN-[facility] Nephrology Pager #[phone] Physical Examination: Constitutional: no acute distress, appears comfortable Chest: normal respiratory effort; on room air Abdominal: non-distended Extremities: well perfused, trace bilateral lower extremity edema Skin: no rash Wt Readings from Last 3 Encounters: 02/17/25 78.9 kg (173 lb 15.1 oz) 12/18/24 79.2 kg (174 lb 8 oz) 10/22/24 78.9 kg (174 lb) Temp Readings from Last 3 Encounters: 02/17/25 98.3 F (36.8 C) (Oral) 12/19/24 97.7 F (36.5 C) (Oral) 04/02/24 98.1 F (36.7 C) (Oral) BP Readings from Last 3 Encounters: 02/17/25 108/54 12/19/24 115/55 10/22/24 122/48 Pulse Readings from Last 3 Encounters: 02/17/25 69 12/19/24 87 04/16/24 70 Lab Results Component Value Date CREATSERUM 5.28 (H) 02/17/2025 CREATSERUM 8.21 (H) 02/16/2025 CREATSERUM 7.08 (H) 02/15/2025 BUN 17 02/17/2025 BUN 29 (H) 02/16/2025 SODIUM 137 02/17/2025 POTASSIUM 4.1 02/17/2025 CHLORIDE 98 02/17/2025 CO2 27 02/17/2025 CALCIUM 8.0 (L) 02/14/2025 PHOSPHORUS 2.9 02/17/2025 ALBUMIN 3.4 (L) 02/14/2025 Lab Results Component Value Date PTH 283.6 (H) 02/04/2023 [id number] 40.3 09/03/2021 CALCIUM 8.0 (L) 02/14/2025 ICA 4.6 09/15/2021 PHOSPHORUS 2.9 02/17/2025 MAGNESIUM 1.7 02/17/2025 Lab Results Component Value Date WBC 8.48 02/17/2025 HGB 7.6 (L) 02/17/2025 HCT 24.0 (L) 02/17/2025 PLATELET 170 02/17/2025 MCV 108.6 (H) 02/17/2025 Lab Results Component Value Date PH 7.346 09/16/2021 PCO2 43.7 09/16/2021 PO2 51.4 09/16/2021 HCO3 23.4 09/16/2021 LACT 1.5 02/04/2023 [facility] Medicine Progress Note Patient: Christian Amador, : 1950, Impression / Plan Christian Amador is a 74 y.o. male with a PMH of ESRD on home dialysis, atrial fibrillation s/p AVN ablation and PPM, MRSA bacteremia on life long suppressive antibiotics, fungemia on chronic fluconazole, mechanical mitral valve, and MADRID cirrhosis of liver, presented to OSH with fatigue, transferred to [facility] for pleural fluid collection that was found to be chronic. Also found to have acute on chronic anemia in setting of hematochezia. Fatigue/weakness Hematochezia Acute blood loss anemia Pt has known external hemorrhoids. Hb back in Nov was 11, Hb 7.3 on admission and has remained stable. - No recent colonoscopies seen in our system - Blood consent completed - monitor H/H, type and screen --H/H has remained stable - GI consulted-- -s/p EGD and colonoscopy -Area of stenosis and possible ischemia unable to pass in colonoscopy -Ulceration noted -Continue IV PPI until GI update -Resume regular diet per report recs -Follow up recs regarding colonoscopy findings -check folate/B12 today given macrocytosis Chronic pleural effusion Effusion is chronic as it was present at least [address] Chest, noted on CT Chest in January 2023 on L side. Pleural fluid was exudative at that time with no evidence of malignant cells on cytology. Thought secondary to PNA, completed tx with ceftriaxone x2 weeks and had chest tube placed for drainage. Although he has cough, he has not had fever and is on RA, breathing comfortably so holding off on antibiotics for now. - Thoracic consulted-- not a candidate for VATS - Pulm consulted-- did not recommend Chest tube- should re establish with pulm outpatient - Holding off on antibiotics for now -Check LRCX and RVP. Unable to get legionella/step Ag due to being anuric. -metapneumovirus positive- supportive care. Likely accounts for some of his fatigue/weakness. Metapneumovirus infection -supportive care, isolation Mechanical MV INR goal 2.5-3.5, INR 1.7 on admission. On warfarin at home with regimen of 2mg M-F, 1mg on Sat and Sun. - Resuming warfarin today, monitor INR - heparin gtt to bridge until therapeutic - if Hb stabilizes can consider dc with lovenox bridge sooner ESRD on home dialysis Pt reports he does HD at home 4x weekly. - Neph consulted - Midodrine with HD - Do not have his home phos binder on formulary, starting Phoslo while amditted - Continue cinacalcet Atrial fibrillation s/p AVN ablation PPM - on AC as above. Holding for colonoscopy MRSA bacteremia on life long suppressive antibiotics - Continue home doxy History of fungemia on chronic fluconazole - Continue home fluconazole MADRID cirrhosis of liver MELD 26 - Continue lactulose - No evidence of ascites on exam - Dec HCC screening negative Complexity Hypocalcemia - Continue to monitor and replete. Hypothyroidism - Continue thyroid replacement. Medical Readiness For Discharge: Anticipated in 2-4 Days DVT prophylaxis with currently on heparin gtt Anticipated Disposition: home Code status is Full Code Interval History / Subjective No acute events overnight, updated pt and his on plans Objective Temp: [97.2 F (36.2 C)-98.6 F (37 C)] 98.1 F (36.7 C) Pulse (Heart Rate): [69-71] 69 Resp Rate: [16-26] 18 BP: (89-113)/(43-54) 113/53 O2 Sat (%): [90 %-99 %] 91 % Weight: [78.9 kg (173 lb 15.1 oz)] 78.9 kg (173 lb 15.1 oz) Physical Exam Gen: Sleeping after anesthesia, wakes easily Eyes:EOMI, no icterus ENT:MMM, trachea midline Resp: Decreased but coarse breath sounds in L lung field, normal respiratory effort Cardio: RRR, normal S1, S2, no M/R/G. No KVNG. GI:S/NT/ND Skin:No jaundice or rash Neuro: No focal deficits Psych:Ox3, appropriate affect and cognition Data Review WBC/Hgb/Hct/Plts: 8.48/7.6/24.0/170 (02/17 103) Na/K+/Phos/Mg/Ca: 137/4.1/2.9/1.7/-- (02/17 103) Bun/Creat/Cl/CO2/Glucose: 17/5.28/98/27/99 (02/17 103) Ptt/Pt/Inr: 109.2/--/-- (02/17 1329) Care Management Progress Note Plan of Care- Treatment Updates: Hepatology signed off, GI and nephrology following. Patient had EGD and colonoscopy yesterday 02/16. Monitoring Hb level. Patient currently on heparin drip. Therapeutic INR for patient would be 2.5-3.5. If patient discharges prior to therapeutic INR, will need lovenox bridge to warfarin. Discharge updates: Patient to discharge home with spouse. Patient to resume home HD. Spouse to provide transportation. ELAYNE Guzman Clinical Trials Nurse [phone] Available on secure chat. NEPHROLOGY INPATIENT FOLLOW UP NOTE Reason for Consultation: ESRD Referring Provider: Key Rizo MD Hospital Day: 3 SUBJECTIVE Seen during dialysis doing well talked earlier to his also denies cp or sob no nausea or vommiting had echocardiogram earlier OBJECTIVE Vitals: BP 93/52 Pulse 69 Temp 97.9 F (36.6 C) (Oral) Resp (!) 25 Ht 1.702 m (5' 7) Wt 78.9 kg (174 lb) SpO2 94% BMI 27.25 kg/m Smoking Status Never I/O last 3 completed shifts: In: 550 [P.O.:200; I.V.:350] Out: - Scheduled Medications ALPRAZolam 1 mg Oral QHS [Held by provider] calcium acetate - Phos Binder 667 mg Oral TID w/meals cefTRIAXone 1 g Intravenous Q24H Cinacalcet 30 mg Oral Once per day on Sunday Cyclobenzaprine 10 mg Oral Q12H dialysate Dialysis Once in dialysis Doxycycline monohydrate 100 mg Oral Q12H Fluconazole 200 mg Oral QHS Lactulose 10 g Oral BID Levothyroxine 75 mcg Oral Before BKF Midodrine HCl 10 mg Oral Once per day on Sunday Pantoprazole 40 mg Intravenous BID vitamin C/B complex/folic acid (VIRT-CAPS) 1 capsule Oral Daily [Held by provider] warfarin 2 mg Oral Once per day on Sunday And [Held by provider] Warfarin 1 mg Oral Once per day on Sunday Physical Examination: Constitutional: no acute distress Chest: ctab, no wheezing Cardiovascular: rrr, no murmurs Abdominal: non-distended, +bowel sounds Extremities: well perfused, trace le edema Dialysis acess rt TDC Relevant Data: Lab Results Component Value Date SODIUM 137 02/16/2025 POTASSIUM 4.7 02/16/2025 CHLORIDE 97 (L) 02/16/2025 CO2 22 02/16/2025 BUN 29 (H) 02/16/2025 CREATSERUM 8.21 (H) 02/16/2025 GLUCOSE 84 02/16/2025 Lab Results Component Value Date WBC 16.30 (H) 02/16/2025 HGB 7.8 (L) 02/16/2025 HCT 25.8 (L) 02/16/2025 PLATELET 181 02/16/2025 MCV 110.3 (H) 02/16/2025 Lab Results Component Value Date PTH 283.6 (H) 02/04/2023 CALCIUM 8.0 (L) 02/14/2025 PHOSPHORUS 2.1 (L) 02/14/2025 ASSESSMENT AND PLAN: 74 yr old male with history of htn ,esrd on home hd ,history of AVR,afib,lymphoma admitted with progressive sob ,weakness found to have left pleural effusion Problem list: ESRD Left pleural effusion Recommendations: On HHD 4 times a week 3 hours dry weight 75.5 kg will dialyse today for 3 hours try 2 litres uf using 3 k bath will dialyse again in am Anemia transfuse if HB drops below 7 check iron studies if replete start aranesp 40 micrograms weekly BMD po4 low encourage to eat dairy products start calcitriol 0.25 micrograms with dialysis as calcium low too Rectal bleed gi following Thank you for allowing us to participate in the care of this patient. Please page with questions or concerns. MARIA EUGENIA LANDRY M.D,ALEJANDRO Attending Nephrology page [phone] Hospital Medicine Progress Note Patient: Christian Amador, : 1950, Impression / Plan Christian Amador is a 74 y.o. male with a PMH of ESRD on home dialysis, atrial fibrillation s/p AVN ablation and PPM, MRSA bacteremia on life long suppressive antibiotics, fungemia on chronic fluconazole, mechanical mitral valve, and MADRID cirrhosis of liver, presented to OSH with fatigue, transferred to [facility] for pleural fluid collection that was found to be chronic. Also found to have acute on chronic anemia in setting of hematochezia. Fatigue/weakness Hematochezia Acute blood loss anemia Pt has known external hemorrhoids. Hb back in Nov was 11, Hb 7.3 on admission and has remained stable. - No recent colonoscopies seen in our system - Blood consent completed - monitor H/H, type and screen --H/H has remained stable - GI consulted-- -s/p EGD and colonoscopy -Area of stenosis and possible ischemia unable to pass in colonoscopy -Ulceration noted -Continue IV PPI until GI update -Resume regular diet per report recs -Follow up recs regarding colonoscopy findings -check folate/B12 today given macrocytosis Chronic pleural effusion Effusion is chronic as it was present at least [address] Chest, noted on CT Chest in January 2023 on L side. Pleural fluid was exudative at that time with no evidence of malignant cells on cytology. Thought secondary to PNA, completed tx with ceftriaxone x2 weeks and had chest tube placed for drainage. Although he has cough, he has not had fever and is on RA, breathing comfortably so holding off on antibiotics for now. - Thoracic consulted-- not a candidate for VATS - Pulm consulted-- did not recommend Chest tube- should re establish with pulm outpatient - Holding off on antibiotics for now -Check LRCX and RVP. Unable to get legionella/step Ag due to being anuric. -metapneumovirus positive- supportive care. Likely accounts for some of his fatigue/weakness. Metapneumovirus infection -supportive care, isolation Mechanical MV INR goal 2.5-3.5, INR 1.7 on admission. On warfarin at home with regimen of 2mg M-F, 1mg on Sat and Sun. - holding warfarin - heparin gtt to bridge until therapeutic ESRD on home dialysis Pt reports he does HD at home 4x weekly. - Neph consulted - Midodrine with HD - Do not have his home phos binder on formulary, starting Phoslo while amditted - Continue cinacalcet Atrial fibrillation s/p AVN ablation PPM - on AC as above. Holding for colonoscopy MRSA bacteremia on life long suppressive antibiotics - Continue home doxy History of fungemia on chronic fluconazole - Continue home fluconazole MADRID cirrhosis of liver MELD 26 - Continue lactulose - No evidence of ascites on exam - Dec HCC screening negative Complexity Hypocalcemia - Continue to monitor and replete. Hypophosphatemia - Continue to monitor and replete. Medical Readiness For Discharge: Anticipated in 2-4 Days DVT prophylaxis with currently on heparin gtt Anticipated Disposition: home Code status is Full Code Interval History / Subjective Seen after colonoscopy, sleeping, discussed updates with his Objective Temp: [97.3 F (36.3 C)-98.5 F (36.9 C)] 97.9 F (36.6 C) Pulse (Heart Rate): [69-81] 73 Resp Rate: [16-31] 31 BP: (89-115)/(51-55) 89/53 O2 Sat (%): [91 %-100 %] 92 % Weight: [78.9 kg (174 lb)] 78.9 kg (174 lb) Physical Exam Gen: Sleeping after anesthesia, wakes easily Eyes:EOMI, no icterus ENT:MMM, trachea midline Resp: Decreased but coarse breath sounds in L lung field, normal respiratory effort Cardio: RRR, normal S1, S2, no M/R/G. No KVNG. GI:S/NT/ND Skin:No jaundice or rash Neuro: No focal deficits Psych:Ox3, appropriate affect and cognition Data Review WBC/Hgb/Hct/Plts: 16.30/7.8/25.8/181 (02/16 431) Na/K+/Phos/Mg/Ca: 137/4.7/--/--/-- (02/16 431) Bun/Creat/Cl/CO2/Glucose: 29/8.21/97/22/84 (02/16 431) Ptt/Pt/Inr: 46.0/17.9/1.5 (02/16 431) Department of Pharmacy Renal Documentation Note Patient: Christian Amador Room/Bed: 1191/A Patient is on Intermittent Hemodialysis Phosphorus Binder Management The patient is currently prescribed Phoslo 667 TID. The patient s most recent phosphorus levels include: Lab Results Component Value Date/Time Phosphorous 2.1 (L) 02/14/2025 0026 Phosphorous 2.9 02/13/2025 1150 Based on this/these value(s) I have made the following changes: Held Phoslo. I have modified the orders in I[facility] to reflect the above plan. Please feel free to contact me with any further questions. Name: Castro Lerner RPH Date/Time: 02/16/2025 6:45 AM Department of Pharmacy Renal Documentation Note Patient: Christian Amador Room/Bed: 1191/A Patient is on Intermittent Hemodialysis Nephrocap Addition Because this patient is on hemodialysis, I have added a daily nephrocap to the orders in IS. Please feel free to contact me with any further questions. Name: Castro Lerner RPH Date/Time: 02/16/2025 6:44 AM Hospital Medicine Progress Note Patient: Christian Amador, : 1950, Impression / Plan Christian Amador is a 74 y.o. male with a PMH of ESRD on home dialysis, atrial fibrillation s/p AVN ablation and PPM, MRSA bacteremia on life long suppressive antibiotics, fungemia on chronic fluconazole, mechanical mitral valve, and MADRID cirrhosis of liver, presented to OSH with fatigue, transferred to [facility] for pleural fluid collection that was found to be chronic. Also found to have acute on chronic anemia in setting of hematochezia. Fatigue/weakness Hematochezia Acute blood loss anemia Pt has known external hemorrhoids. Hb back in Nov was 11, Hb 7.3 on admission and has remained stable. - No recent colonoscopies seen in our system - Blood consent completed - monitor H/H, type and screen --H/H has remained stable - GI consulted-- planning for EGD and colonoscopy on Sunday. Will prep tonight. -PPI BID, ceftriaxone ppx, -hold heparin at midnight -check folate/B12 today given macrocytosis Chronic pleural effusion Effusion is chronic as it was present at least [address] Chest, noted on CT Chest in January 2023 on L side. Pleural fluid was exudative at that time with no evidence of malignant cells on cytology. Thought secondary to PNA, completed tx with ceftriaxone x2 weeks and had chest tube placed for drainage. Although he has cough, he has not had fever and is on RA, breathing comfortably so holding off on antibiotics for now. - Thoracic consulted-- not a candidate for VATS - Pulm consulted-- did not recommend Chest tube - Holding off on antibiotics for now -Check LRCX and RVP. Unable to get legionella/step Ag due to being anuric. -metapneumovirus positive- supportive care. Likely accounts for some of his fatigue/weakness. Metapneumovirus infection -supportive care, isolation Mechanical MV INR goal 2.5-3.5, INR 1.7 on admission. On warfarin at home with regimen of 2mg M-F, 1mg on Sat and Sun. - holding warfarin - heparin gtt to bridge until therapeutic ESRD on home dialysis Pt reports he does HD at home 4x weekly. - Neph consulted - Midodrine with HD - Do not have his home phos binder on formulary, starting Phoslo while amditted - Continue cinacalcet Atrial fibrillation s/p AVN ablation PPM - on AC as above. Holding for colonoscopy MRSA bacteremia on life long suppressive antibiotics - Continue home doxy History of fungemia on chronic fluconazole - Continue home fluconazole MADRID cirrhosis of liver MELD 26 - Continue lactulose - No evidence of ascites on exam - Dec HCC screening negative Complexity Hypokalemia - Continue to monitor and replete. Hypocalcemia - Continue to monitor and replete. Hypophosphatemia - Continue to monitor and replete. Hypothyroidism - Continue thyroid replacement. Medical Readiness For Discharge: Anticipated in 2-4 Days DVT prophylaxis with currently on heparin gtt Anticipated Disposition: home Code status is Full Code Interval History / Subjective No significant events overnight. No new concerns. Planning for colonoscopy tomorrow. Objective Temp: [97.3 F (36.3 C)-99.7 F (37.6 C)] 97.4 F (36.3 C) Pulse (Heart Rate): [69-83] 70 Resp Rate: [16-18] 16 BP: (104-117)/(51-58) 107/54 O2 Sat (%): [91 %-98 %] 96 % Physical Exam Gen:Alert, Awake, NAD Eyes:EOMI, no icterus ENT:MMM, trachea midline Resp: Decreased but coarse breath sounds in L lung field, normal respiratory effort Cardio: RRR, normal S1, S2, no M/R/G. No KVNG. GI:S/NT/ND Skin:No jaundice or rash Neuro: No focal deficits Psych:Ox3, appropriate affect and cognition Data Review WBC/Hgb/Hct/Plts: 8.41/7.6/25.0/158 (02/15 447) Na/K+/Phos/Mg/Ca: 138/3.4/--/--/-- (02/15 447) Bun/Creat/Cl/CO2/Glucose: 24/7.08/99/26/93 (02/15 447) Ptt/Pt/Inr: 93.3/19.2/1.6 (02/15 447) Discharge Planning Assessment Is the patient able to participate in the assessment?: Yes Care Management Plan Completion of AVS and discharge documentation Arrangement of outpatient follow up Initial Discharge Planning Expected Discharge Disposition: Home Transportation Available for Discharge: Private Vehicle, Family or Friend () Anticipated DME: none Anticipated Services at Discharge: Outpatient follow up Patient Assessment Completed: Initial Legal Next of Kin Does the patient have a Guardian?: No Spouse: Yes Name and Contact information: Anna Amador, /HCPOA per patient report, Adult Child(jane), List All Adult Children: Yes Name and Contact information: Sean Amador, son [phone]. Anna noted he lives about 30 min from them Reviewed and Updated in Demographics? : Yes Advanced Care Planning Medication Management Does the patient have prescription insurance coverage? : Yes (medicare, AARP) Is the patient on Anticoagulation? : No [facility] [address] [place] [phone] - [address] [facility] [phone] Living Environment and Support System Is the patient from a facility or snf?: No Living Environment: Condominium (ranch condo with finished basement) Patient Caregiving Responsibilities: Self Patient-identified caregiver/support network: Family Who does the patient identify as a teachable caregiver(s)?: Spouse or Partner, Child(jane) - Independent Services Does the patient use a home health or hospice agency?: No Current with dialysis?: Yes (home dialysis 4 days a week) Does the patient use any community programs or services?: No Does patient use DME? : rollator, straight cane, wheelchair, grab bars, elevated toilet seat Does the patient use oxygen?: No Does patient use medical supplies? : none Anticipated Changes Related to Illness/Injury? : No Initial ADLs Prior to Arrival What is the patient's baseline physical functioning prior to this acute illness?: assist with ADLs What is the patient's baseline cognitive functioning prior to this acute illness?: independent Is the patient's baseline functioning changed by this acute illness? : No Concerns with patient being able to care for themselves at home? 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 : No Patient is a 74 yo male admitted for hematochezia as well as concern for empyema at [facility] (which patient does not have). Care plan includes GI, pulmonary and thoracic surgery consults. Planning for EGD and colonoscopy tomorrow. Patient on IV ATB for concern for pneumonia. Patient has multiple chronic medical problems. He is on home dialysis. 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 She is extremely supportive. Patient reports that he lives in [place] with his and will return home at discharge. Patient does use some DME at home but no HHC. Patient and family deny any active SDOH concerns. Anna noted that the ambulance company made her pay $1400 before they would transport the patient to [facility] from [facility] on Sunday since he was not going to the next closest hospital. She states that she has never been charged like this before and patient has been transferred her other times previously. I encouraged her to call the ambulance company, as I also have never heard of a patient being charged up front to be transported to a higher level of care hospital. Anna also noted that if patient needs outpatient PT at discharge, they have a favorite place to go outpatient. She states that patient has been SOB lately when walking to the bathroom and although his pulse ox is always in the mid 90s, she may pursue self-pay home oxygen for a little while after discharge to see if that helps the patient. She states that Dr Ferrara gave her a prescription already so she may try to make those arrangements after discharge. Please consult case management if discharge planning needs arise. At the time of this assessment, patient and spouse plan to return home at discharge without HHC. Spouse noted that her car is in the shop and ready to be picked up tomorrow 02/16 so she will be away from the hospital for a bit. Deborah ARCE CM Pt called out stating arm was bleeding. Rt arm bleeding from small pinpoint area from old IV start attempt. Pressure held 20minutes then pressure dressing applied. No bleeding at this time noted. Circ checks WNL to rt arm. Heparin gtt infusing with no problem. Pt at bedside. 0115: no bleeding from Rt arm site. Pt resting easy. Heparin gtt continues Hospital Medicine Progress Note Patient: Christian Amador, : 1950, Impression / Plan Christian Amador is a 74 y.o. male with a PMH of ESRD on home dialysis, atrial fibrillation s/p AVN ablation and PPM, MRSA bacteremia on life long suppressive antibiotics, fungemia on chronic fluconazole, mechanical mitral valve, and MADRID cirrhosis of liver, presented to OSH with fatigue, transferred to [facility] for pleural fluid collection that was found to be chronic. Also found to have acute on chronic anemia in setting of hematochezia. Fatigue/weakness Hematochezia Acute blood loss anemia Pt has known external hemorrhoids. Hb back in Nov was 11, Hb 7.3 on admission and has remained stable. - No recent colonoscopies seen in our system - Blood consent completed - monitor H/H, type and screen - GI consult today -check folate/B12 today given macrocytosis Chronic pleural effusion Effusion is chronic as it was present at least [address] Chest, noted on CT Chest in January 2023 on L side. Pleural fluid was exudative at that time with no evidence of malignant cells on cytology. Thought secondary to PNA, completed tx with ceftriaxone x2 weeks and had chest tube placed for drainage. Although he has cough, he has not had fever and is on RA, breathing comfortably so holding off on antibiotics for now. - Thoracic consulted-- not a candidate for VATS - Pulm consulted-- did not recommend Chest tube - Holding off on antibiotics for now -Check LRCX and RVP. Unable to get legionella/step Ag due to being anuric. Mechanical MV INR goal 2.5-3.5, INR 1.7 on admission. On warfarin at home with regimen of 2mg M-F, 1mg on Sat and Sun. - Continue warfarin - heparin gtt to bridge until therapeutic ESRD on home dialysis Pt reports he does HD at home 4x weekly. - Neph consulted - Midodrine with HD - Do not have his home phos binder on formulary, starting Phoslo while amditted - Continue cinacalcet Atrial fibrillation s/p AVN ablation PPM - on AC as above MRSA bacteremia on life long suppressive antibiotics - Continue home doxy History of fungemia on chronic fluconazole - Continue home fluconazole MADRID cirrhosis of liver MELD 26 - Continue lactulose - No evidence of ascites on exam - Dec HCC screening negative Complexity Hypocalcemia - Continue to monitor and replete. Hypophosphatemia - Continue to monitor and replete. Hypothyroidism - Continue thyroid replacement. Medical Readiness For Discharge: DVT prophylaxis with currently on heparin gtt Anticipated Disposition: home Code status is Full Code Interval History / Subjective No significant events overnight. No new concerns. Did not notice any hematochezia this morning. No hematemesis. Stool is always dark due to iron supplements. Objective Temp: [97.3 F (36.3 C)-98.7 F (37.1 C)] 98.1 F (36.7 C) Pulse (Heart Rate): [69-81] 81 Resp Rate: [16-30] 18 BP: (93-115)/(50-83) 107/53 O2 Sat (%): [92 %-100 %] 98 % Weight: [78.9 kg (174 lb)] 78.9 kg (174 lb) Physical Exam Gen:Alert, Awake, NAD Eyes:EOMI, no icterus ENT:MMM, trachea midline Resp: Decreased but coarse breath sounds in L lung field, normal respiratory effort Cardio: RRR, normal S1, S2, no M/R/G. No KVNG. GI:S/NT/ND Skin:No jaundice or rash Neuro: No focal deficits Psych:Ox3, appropriate affect and cognition Data Review WBC/Hgb/Hct/Plts: 8.48/7.4/24.3/157 (02/14 26) Na/K+/Phos/Mg/Ca: 136/3.6/2.1/1.7/8.0 (02/14 26) Bun/Creat/Cl/CO2/Glucose: 13/4.06/98/26/100 (02/14 26) Ptt/Pt/Inr: 98.3/19.5/1.7 (02/14 26-02/14 701) Pt noted to have facial twitching at times. Pt verifies jerking movements were to arms and legs earlier and now just face. Pt denies any distress. Dr Serrano notified. 0026: labs sent at this time with PTT. Pt twitching a little less noticeable but continues. Pt denies distress.. NNO 0241: Pt resting easy. No jerking or twitching noted in sleep. Tele and cpox wnl at rest. Department of Pharmacy Renal Documentation Note Patient: Christian Amador Room/Bed: 1191/A Assessment and Plan: The patient is currently maintained on intermittent hemodialysis. The current medication profile was reviewed for appropriate dosing and timing and any contraindications to prescribed therapies. No adjustments to medication therapy are necessary at this time. A pharmacist will continue to follow patient and recommend drug levels and dose changes as clinically appropriate. Would recommend adding on neprocap (home med for patient). Please contact with any questions, Name: Omid Bonilla RPh,Lakesha Phone: [phone] Date/Time: 02/13/2025 5:19 PM documented in this encounter [facility] 03-06-2025 History of Present illness Narrative Care Management Discharge Note Selected Continued Care - Admitted Since 02/13/2025 Dialysis/Infusion Coordination complete. Service Provider Services Address Phone Fax Patient Preferred [facility] [facility] [address], [place] [address] [phone] -- Internal Comment last updated by ELAYNE Vo 2025 1307 Home HD Confirmed with patients at bedside that patient checks his INR every Sunday and follows up his Director Private with results. to transport patient home. AVS updated. Patient medically stable for discharge per physician/medical team. 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 Mel MARIE, RN Clinical Office Specialist [address] [place] [address] Can be reached by phone at [phone] or by Secure Chat Images from the original note were not included. Infectious Disease Consult Progress Note CURRENT HOSPITALIZATION/LOS: Admit Date: 02/13/2025 Date of Evaluation: :07 PM Pt goind well and without complaints. in room. Scheduled Meds: ALPRAZolam 1 mg Oral QHS [Held by provider] calcium acetate - Phos Binder 667 mg Oral TID w/meals Cinacalcet 30 mg Oral Once per day on Sunday Cyclobenzaprine 10 mg Oral Q12H darbepoetin 60 mcg Subcutaneous Q7 days Doxycycline monohydrate 100 mg Oral Q12H Fluconazole 200 mg Oral QHS Lactulose 10 g Oral BID Levothyroxine 75 mcg Oral Before BKF Midodrine HCl 10 mg Oral Once per day on Sunday Pantoprazole 40 mg Oral BID vitamin C/B complex/folic acid (VIRT-CAPS) 1 capsule Oral Daily Warfarin 2 mg Oral Daily early evening Continuous Infusions: OBJECTIVE FINDINGS: Vital Signs (24hrs): Temp: [97.4 F (36.3 C)-99.1 F (37.3 C)] 99.1 F (37.3 C) Pulse (Heart Rate): [69-83] 73 Resp Rate: [16-18] 16 BP: (99-107)/(50-55) 105/50 O2 Sat (%): [96 %-100 %] 97 % Lines/Drains/Airways/Wounds: Patient Lines/Drains/Airways Status Active Lines, Drains, Airways, & Wound Overview Name Placement date Placement time Site Days Tunneled Central Line - Double Lumen 10/10/21 1116 red white internal jugular vein, right other (see comments) 10/10/21 1116 -- 1242 Peripheral IV Line - Single Lumen 02/14/25 1840 forearm, posterior, right 22 gauge 02/14/25 1840 -- 18 Wound Skin Tear 02/03/23 1515 Midline;Posterior Buttocks 02/03/23 1515 Buttocks 761 Wound Surgical 02/13/23 0820 incision Left Back 02/13/23 0820 Back 751 PHYSICAL EXAM: General: Laying in bed, no apparent distress. CV: S1 and S2 normal, no murmurs, clicks, gallops or rubs. Regular rate and rhythm. Pulm: Chest is clear, no wheezing or rales. Normal symmetric air entry throughout both lung chavez. No chest wall deformities or tenderness. Trunk/Abd: The abdomen is soft without tenderness, guarding, mass, rebound or organomegaly. Bowel sounds are normal. Ext& Skin: No edema, No rash. DIAGNOSTIC RESULTS/PROCEDURES: Labs: WBC/Hgb/Hct/Plts: 10.65/10.6/34.2/303 (03/05 416) Bun/Creat/Cl/CO2/Glucose: 26/5.35/100/25/95 (03/05 416) Na/K+/Phos/Mg/Ca: 139/5.1/4.9/2.0/9.4 (03/05 416) Radiology/Images: Reviewed TTE: Mildly dilated left ventricle with mild increase in septal wall wall thickness (max 1.2 cm). Normal systolic function, LVEF 55-60%, with abnormal septal motion. Diastolic function could not be assessed d/t MVr. Normal right ventricular size with low normal systolic function. S/p mitral valve repair with an annuloplasty ring & mild residual, posteriorly directed, regurgitation (EROA 0.15 cm2). MV gradients of 12/4 mmHg obtained at HR of 70 bpm. Prosthesis in aortic position, appears well seated. Disk mobility could not be assessed. No evidence of dysfunction on Doppler assessment (Vmax 1.9, PG 15/9 mmHg, DI Vmax 0.27, DI VTI 0.33) with mild regurgitation. Mild to moderate tricuspid regurgitation with moderate RVSP elevation, estimated at 55 mmHg. Mild dilation of the visualized segments of the ascending aorta (3.8 cm). No evidence of intracardiac shunting on agitated saline or color Doppler study Cultures: Reviewed ASSESSMENT: Line cx + MRSE, swabs insertion site neg. Repeat cx neg. 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 pMV with PPM Cirrhosis RECOMMENDATIONS: Hold additional abx. Repeat blood cultures neg. ID will sign off. Call back if concerns or questions. Garcia Bay MD, PhD [facility] Hospital Medicine Progress Note Patient: Christian Amador, : 1950, Impression / Plan Christian Amador is a 74 y.o. 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 He presented to OSH with fatigue and was transferred to [facility] for pleural fluid collection that was found to be chronic. He was found to have metapneumo virus infection. Also found to have acute on chronic anemia in setting of hematochezia for which he underwent colonoscopy which was inconclusive. He remains inpatient for heparin gtt bridge to home warfarin. S/p Mechanical MV Subtherapeutic INR - resolved INR goal 2.5-3.5, INR 1.7 on admission. On warfarin at home with regimen of 2mg M-F, 1mg on Sat and Sun (12mg total weekly dose, started about 1 week prior to presentation due to previously labile INRs). - s/p heparin gtt; bridged until therapeutic on home warfarin (high risk medication requiring monitoring for toxicity) - pharmacy consulted for assistance with warfarin management and dose adjustments. Had been giving 4mg daily (double home dose) for several days without much movement. gave 8mg 02/24. Gave 4mg 02/25, pharm adjusted dose to 4 mg 02/27 with plan for 3 mg until therapeutic but INR not moving - gave 8 mg again 02/28, 03/01 - give 5mg warfarin 03/02, 03/03 - decrease to 3 mg 03/04, down to 2mg on 03/05 given at goal and anticipate can do daily, with INR check 03/09/25 Positive blood culture Blood cultures requested per neph due to skin changes at TDC site. Grew staph epi in 11/20, high suspicion for contaminant given specimen and patient's clinical status (no fevers, normal WBC), but neph remains concerned about site. - ID consulted for further guidance on c/f infected TDC - repeat blood cultures from line 03/04 NGTD - pending NGTD on 03/06 can dc home Acute blood loss anemia 2/2 rectal bleeding Stenosis and ulceration of sigmoid colon c/f ischemia Bleeding external and internal hemorrhoids Hb back in Nov was 11, Hb 7.3 on admission and has remained stable. GI consulted and patient underwent colonoscopy which revealed area of stenosis and possible ischemia in sigmoid colon, unable to pass camera beyond stenosis. EGD revealed PHG. - path negative for malignancy - Repeat cscope date to be determined by GI pending path results and based on clinical status at that time (needs referral for GI follow up at discharge) MADRID cirrhosis of liver MELD 26 - Continue lactulose - EGD this admission with PHG but no varices. No BB 2/2 hypotension - HCC screening UTD Metapneumovirus infection Supportive care, isolation Chronic pleural effusion Effusion is chronic and stable since at least CT Chest in January 2023. Pleural fluid was exudative at that time with no evidence of malignant cells on cytology. Thoracic consulted and pt is not a candidate for VATS. His current symptoms are more likely to be related to his viral infection than to this effusion ESRD on home dialysis - Neph consulted - Midodrine with HD - Continue cinacalcet, phos binder to be resumed on dc given uptrending again (sub formulary option) Atrial fibrillation s/p AVN ablation, PPM on AC as above MRSA bacteremia on life long suppressive antibiotics Continue home doxy History of fungemia on chronic fluconazole Continue home fluconazole Insomnia continue home xanax nightly Complexity Hypothyroidism - Continue thyroid replacement. Any conditions listed below are present on admission unless otherwise specified. Medical Readiness For Discharge: Anticipated Tomorrow 03/06/2025 DVT prophylaxis with hep gtt -> warfarin Anticipated Disposition: home 03/06 Code status is Full Code Interval History / Subjective No acute events overnight. at bedside. Updated on INR at goal but still pending cx ngtd x 48 hrs. Really wants to dc home. Objective Temp: [97.3 F (36.3 C)-98.2 F (36.8 C)] 98.1 F (36.7 C) Pulse (Heart Rate): [69-83] 79 Resp Rate: [16-26] 16 BP: (93-107)/(50-55) 99/55 O2 Sat (%): [95 %-100 %] 100 % Physical Exam Gen: A, A, NAD ENT: MMM Resp: normal effort on room air, TDC in R chest Cardio: RRR with loud click, no KVNG Psych: appropriate affect and cognition Data Review WBC/Hgb/Hct/Plts: 10.65/10.6/34.2/303 (03/05 416) Na/K+/Phos/Mg/Ca: 139/5.1/4.9/2.0/9.4 (03/05 416) Bun/Creat/Cl/CO2/Glucose: 26/5.35/100/25/95 (03/05 416) Ptt/Pt/Inr: 86.9/29.8/2.8 (03/05 416) Hospital Medicine Progress Note Patient: Christian Amador, : 1950, Impression / Plan Christian Amador is a 74 y.o. 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 He presented to OSH with fatigue and was transferred to [facility] for pleural fluid collection that was found to be chronic. He was found to have metapneumo virus infection. Also found to have acute on chronic anemia in setting of hematochezia for which he underwent colonoscopy which was inconclusive. He remains inpatient for heparin gtt bridge to home warfarin. S/p Mechanical MV Subtherapeutic INR INR goal 2.5-3.5, INR 1.7 on admission. On warfarin at home with regimen of 2mg M-F, 1mg on Sat and Sun (12mg total weekly dose). Stable dose regimen and no other medication or diet changes recently - heparin gtt to bridge until therapeutic on home warfarin (high risk medication requiring monitoring for toxicity) - pharmacy consulted for assistance with warfarin management and dose adjustments. Had been giving 4mg daily (double home dose) for several days without much movement. gave 8mg 02/24. Gave 4mg 02/25, pharm adjusted dose to 4 mg 02/27 with plan for 3 mg until therapeutic but INR not moving - gave 8 mg again 02/28, 03/01 - give 5mg warfarin 03/02, 03/03 - decrease to 3 mg 03/04 as INR near goal Positive blood culture Blood cultures requested per neph due to skin changes at TDC site. Grew staph epi in 11/20, high suspicion for contaminant given specimen and patient's clinical status (no fevers, normal WBC), but neph remains concerned about site. - ID consulted for further guidance on c/f infected TDC - repeat blood cultures ordered (cx from line marked as collected but not done 03/03 - reordered line cx 03/04) Acute blood loss anemia 2/2 rectal bleeding Stenosis and ulceration of sigmoid colon c/f ischemia Bleeding external and internal hemorrhoids Hb back in Nov was 11, Hb 7.3 on admission and has remained stable. GI consulted and patient underwent colonoscopy which revealed area of stenosis and possible ischemia in sigmoid colon, unable to pass camera beyond stenosis. EGD revealed PHG. - path negative for malignancy - Repeat cscope date to be determined by GI pending path results and based on clinical status at that time (needs referral for GI follow up at discharge) MADRID cirrhosis of liver MELD 26 - Continue lactulose - EGD this admission with PHG but no varices. No BB 2/2 hypotension - HCC screening UTD Metapneumovirus infection Supportive care, isolation Chronic pleural effusion Effusion is chronic and stable since at least CT Chest in January 2023. Pleural fluid was exudative at that time with no evidence of malignant cells on cytology. Thoracic consulted and pt is not a candidate for VATS. His current symptoms are more likely to be related to his viral infection than to this effusion ESRD on home dialysis - Neph consulted - Midodrine with HD - Continue cinacalcet, phos binder (sub formulary option) Atrial fibrillation s/p AVN ablation, PPM on AC as above MRSA bacteremia on life long suppressive antibiotics Continue home doxy History of fungemia on chronic fluconazole Continue home fluconazole Insomnia continue home xanax nightly Complexity Hypothyroidism - Continue thyroid replacement. Any conditions listed below are present on admission unless otherwise specified. Medical Readiness For Discharge: Anticipated in 5+ Days DVT prophylaxis with hep gtt -> warfarin Anticipated Disposition: home when INR 2.5 Code status is Full Code Interval History / Subjective No acute events overnight. INR nearing goal. Repeat blood cultures pending. Denies any acute complaints apart from wanting to get out of the hospital. Objective Temp: [97 F (36.1 C)-98.3 F (36.8 C)] 97.4 F (36.3 C) Pulse (Heart Rate): [69-82] 69 Resp Rate: [16-28] 24 BP: (97-116)/(50-67) 112/52 O2 Sat (%): [95 %-100 %] 99 % Physical Exam Gen: A, A, NAD ENT: MMM Resp: normal effort on room air Cardio: RRR, WWP Psych: Ox3, appropriate affect and cognition Data Review Ptt/Pt/Inr: 113.6/26.1/2.4 (03/04 0322-03/04 1040) Care Management Progress Note Plan of Care- Treatment Updates: Working on therapeutic INR, must be 2.5 prior to discharge. INR was 2.1. Patient with positive cultures, ID consulted, awaiting final recs. Discharge updates: Patient to discharge home with spouse, spouse to provide transportation. Patient has home HD, patient to follow with home hemo RN at discharge. Barriers: medical readiness (therapeutic INR, final ID plan) Current Referrals and Status Home Dialysis info Selected Continued Care - Admitted Since 02/13/2025 Dialysis/Infusion Service Provider Services Address Phone Fax Patient Preferred [facility] [place] [facility] [address] [place] [address] [phone] -- Internal Comment last updated by ELAYNE Vo 2025 1307 Home HD Sarah ANGULO, ELAYNE Clinical Trials Nurse [phone] Available on secure chat. NUTRITION FOLLOW-UP Pt with identified nutrition risk factors: Current admit and PMHx Nutrition Plan of Care: 1. Continue current diet order. 2. Pt declined oral nutrition supplements. 3. Monitor for significant weight changes. 4. Monitor GI and skin integrity. 5. Monitor and encourage po intakes with goal of average po being 75%. 6. Cooperer to follow. ___ Met with patient today at bedside wearing mask to obtain following information: Diet Order: DIET PHOSPHORUS AND POTASSIUM RESTRICTED (RENAL) Appetite: good Per doc flow sheet: Date Breakfast Lunch Dinner 03/03 03/02 50% 03/01 75% 02/28 100% 02/27 100% 100% Po average over past five days is 85% of 5 meals. Admit wt: 174 lb Last recorded : 02/17/25 Weight: 78.9 kg (173 lb 15.1 oz) Height: 170.2 cm (5' 7.01) no significant weight changes in 1 month Net IO Since Admission: -8,571.62 mL [03/03/25 1326] GI Last Bowel Movement: 03/02/25 Skin Assessment Fabian Score: 19 Pt does not meet criteria for STAND skin bundle Active Wounds: Wound Skin Tear 02/03/23 1515 Midline;Posterior Buttocks (759) Wound Surgical 02/13/23 0820 incision Left Back (749) Edema none Additional Information Pt stated not wanting a nepro oral supplement. Pt states they don't have any nausea or vomiting. Laney Crowe [facility] dietary director student Cosigned by PAMELA Riggins at 03/03/2025 2:33 PM EDT Associated attestation - Tamiko Boss DT - 03/03/2025 2:33 PM EDT I have reviewed/corrected the Cooperer student note and agree with the nutrition plan of care. PAMELA Riggins Pager [phone] Hospital Medicine Progress Note Patient: Christian Amador, : 1950, Impression / Plan Christian Amador is a 74 y.o. 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 He presented to OSH with fatigue and was transferred to [facility] for pleural fluid collection that was found to be chronic. He was found to have metapneumo virus infection. Also found to have acute on chronic anemia in setting of hematochezia for which he underwent colonoscopy which was inconclusive. He remains inpatient for heparin gtt bridge to home warfarin. S/p Mechanical MV Subtherapeutic INR INR goal 2.5-3.5, INR 1.7 on admission. On warfarin at home with regimen of 2mg M-F, 1mg on Sat and Sun (12mg total weekly dose). Stable dose regimen and no other medication or diet changes recently - heparin gtt to bridge until therapeutic on home warfarin (high risk medication requiring monitoring for toxicity) - pharmacy consulted for assistance with warfarin management and dose adjustments. Had been giving 4mg daily (double home dose) for several days without much movement. gave 8mg 02/24. Gave 4mg 02/25, pharm adjusted dose to 4 mg 02/27 with plan for 3 mg until therapeutic but INR not moving - gave 8 mg again 02/28, 03/01 - give 5mg warfarin 03/02 - will f/up pm INR (am lab drawn at 10 pm) and consider decreasing to 4mg Positive blood culture Blood cultures requested per neph due to skin changes at TDC site. Grew staph epi in 1, high suspicion for contaminant given specimen and patient's clinical status (no fevers, normal WBC), but neph remains concerned about site. - ID consulted for further guidance on c/f infected TDC - repeat blood cultures ordered Acute blood loss anemia 2/2 rectal bleeding Stenosis and ulceration of sigmoid colon c/f ischemia Bleeding external and internal hemorrhoids Hb back in Nov was 11, Hb 7.3 on admission and has remained stable. GI consulted and patient underwent colonoscopy which revealed area of stenosis and possible ischemia in sigmoid colon, unable to pass camera beyond stenosis. EGD revealed PHG. - path negative for malignancy - Repeat cscope date to be determined by GI pending path results and based on clinical status at that time (needs referral for GI follow up at discharge) MADRID cirrhosis of liver MELD 26 - Continue lactulose - EGD this admission with PHG but no varices. No BB 2/2 hypotension - HCC screening UTD Metapneumovirus infection Supportive care, isolation Chronic pleural effusion Effusion is chronic and stable since at least CT Chest in January 2023. Pleural fluid was exudative at that time with no evidence of malignant cells on cytology. Thoracic consulted and pt is not a candidate for VATS. His current symptoms are more likely to be related to his viral infection than to this effusion ESRD on home dialysis - Neph consulted - Midodrine with HD - Continue cinacalcet, phos binder (sub formulary option) Atrial fibrillation s/p AVN ablation, PPM on AC as above MRSA bacteremia on life long suppressive antibiotics Continue home doxy History of fungemia on chronic fluconazole Continue home fluconazole Insomnia continue home xanax nightly Complexity Hypothyroidism - Continue thyroid replacement. Any conditions listed below are present on admission unless otherwise specified. Medical Readiness For Discharge: Anticipated in 5+ Days DVT prophylaxis with hep gtt -> warfarin Anticipated Disposition: home when INR 2.5 Code status is Full Code Interval History / Subjective No acute events overnight. INR slowly improving. Discussed plan for ID consult due to nephrology's concern re: blood culture. Denies any acute complaints apart from wanting to get out of the hospital. Objective Temp: [97.4 F (36.3 C)-98.2 F (36.8 C)] 97.4 F (36.3 C) Pulse (Heart Rate): [69-139] 70 Resp Rate: [16-37] 16 BP: (81-116)/(44-56) 107/53 O2 Sat (%): [95 %-100 %] 95 % Physical Exam Gen: A, A, NAD ENT: MMM Resp: normal effort on room air Cardio: RRR, WWP Psych: Ox3, appropriate affect and cognition Data Review WBC/Hgb/Hct/Plts: 8.86/10.9/35.1/288 (03/03 517) Na/K+/Phos/Mg/Ca: 135/4.6/4.5/1.9/9.0 (03/03 517) Bun/Creat/Cl/CO2/Glucose: 24/5.02/97/25/89 (03/03 517) Ptt/Pt/Inr: 102.3/23.0/2.1 (03/02 2226-03/03 517) ESRD Note: Diagnosis: ESRD on dialysis currently hospitalized for workup of hematochezia. Remains hospitalized to get his INR therapeutic Subjective: Feels ok today, seen after dialysis Plan: ESRD MTTS- HD today, 3K, 2L UF (4x/week) Anemia of renal disease - Hb low, check iron saturation, start aranesp 60mcg/wk Secondary hyperparathyroidism - Phos at goal, continue phoslo, sensipar Blood pressure management in a patient with ESRD - acceptable, continue midodrine Access - RIJ TDC, area of skin defect close to exit site. No ozzing. Nutrition - Nephronex/nephrocaps Pertinent Data/Labs: Lab Results Component Value Date POTASSIUM 4.6 03/02/2025 POTASSIUM 4.5 02/28/2025 POTASSIUM 4.4 02/25/2025 POTASSIUM 5.34 (H) 09/15/2021 POTASSIUM 4.8 08/07/2016 POTASSIUM 6.8 06/06/2016 POTASSIUM 6.6 06/05/2016 POTASSIUM 5.5 (H) 06/01/2016 POTASSIUM 5.0 05/31/2016 POTASSIUM 4.59 08/25/2003 POTASSIUM 4.20 08/24/2003 POTASSIUM 4.70 08/24/2003 Lab Results Component Value Date HGB 9.7 (L) 03/02/2025 HGB 9.4 (L) 02/28/2025 HGB 8.5 (L) 02/25/2025 HGB 9.8 (L) 08/07/2016 HGB 9.3 06/05/2016 HGB 8.9 (L) 06/01/2016 HGB 9.0 (L) 05/31/2016 IRONSATURAT 47 02/12/2023 IRONSATURAT 5 (L) 05/03/2016 FERRITIN 224.3 09/12/2021 FERRITIN 726 (H) 05/03/2016 Lab Results Component Value Date PHOSPHORUS 4.7 (H) 02/28/2025 PHOSPHORUS 4.3 02/25/2025 PHOSPHORUS 3.3 05/02/2016 PHOSPHORUS 4.0 05/01/2016 CALCIUM 8.9 02/28/2025 CALCIUM 8.7 02/25/2025 CALCIUM 9.4 08/07/2016 CALCIUM 9.4 06/01/2016 PTH 283.6 (H) 02/04/2023 PTH 101.8 (H) 09/13/2021 PTH 87.2 (H) 05/15/2016 BP Readings from Last 3 Encounters: 03/02/25 95/48 12/19/24 115/55 10/22/24 122/48 Physical Exam: BP 95/48 (BP Location: Left arm, BP Position: Lying) Pulse 71 Temp 97.6 F (36.4 C) (Axillary) Resp 23 Ht 1.702 m (5' 7.01) Wt 78.9 kg (173 lb 15.1 oz) SpO2 100% BMI 27.24 kg/m Smoking Status Never Gen: NAD Heart: audible heart sounds, no edema Lungs: CTAB Abd: soft, NT Neuro: Awake and alert Access: RIJ TDC ALPRAZolam 1 mg Oral QHS [Held by provider] calcium acetate - Phos Binder 667 mg Oral TID w/meals Cinacalcet 30 mg Oral Once per day on Sunday Cyclobenzaprine 10 mg Oral Q12H Doxycycline monohydrate 100 mg Oral Q12H Fluconazole 200 mg Oral QHS Lactulose 10 g Oral BID Levothyroxine 75 mcg Oral Before BKF Midodrine HCl 10 mg Oral Once per day on Sunday Pantoprazole 40 mg Oral BID vitamin C/B complex/folic acid (VIRT-CAPS) 1 capsule Oral Daily Warfarin 5 mg Oral Daily early evening ROSE Browne, MS Attending Auditor Tax 03/02/25 1151 Outlier Review Reviewing for: Outlier Meeting Medical Necessity: Yes Medical Necessity Summary: Patient's INR must be 2.5 prior to discharge, today 03/02 INR 1.9 Barriers: Standard Treatment/Therapy Intervention: No intervention needed Action by Other Stakeholder SW;Office SpecialistIcu Rn Comments: CM/SW continue to follow Escalated to: None Required ELAYNE Guzman Clinical Trials Nurse [phone] Available on secure chat. Hospital Medicine Progress Note Patient: Christian Amador, : 1950, Impression / Plan Christian Amador is a 74 y.o. 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 He presented to OSH with fatigue and was transferred to [facility] for pleural fluid collection that was found to be chronic. He was found to have metapneumo virus infection. Also found to have acute on chronic anemia in setting of hematochezia for which he underwent colonoscopy which was inconclusive. He remains inpatient for heparin gtt bridge to home warfarin. S/p Mechanical MV Subtherapeutic INR INR goal 2.5-3.5, INR 1.7 on admission. On warfarin at home with regimen of 2mg M-F, 1mg on Sat and Sun (12mg total weekly dose). Stable dose regimen and no other medication or diet changes recently - heparin gtt to bridge until therapeutic on home warfarin (high risk medication requiring monitoring for toxicity) - pharmacy consulted for assistance with warfarin management and dose adjustments. Had been giving 4mg daily (double home dose) for several days without much movement. gave 8mg 02/24. Gave 4mg 02/25, pharm adjusted dose to 4 mg 02/27 with plan for 3 mg until therapeutic but INR not moving - gave 8 mg again 02/28, 03/01 - give 5mg warfarin 03/02 Acute blood loss anemia 2/2 rectal bleeding Stenosis and ulceration of sigmoid colon c/f ischemia Bleeding external and internal hemorrhoids Hb back in Nov was 11, Hb 7.3 on admission and has remained stable. GI consulted and patient underwent colonoscopy which revealed area of stenosis and possible ischemia in sigmoid colon, unable to pass camera beyond stenosis. EGD revealed PHG. - path negative for malignancy - Repeat cscope date to be determined by GI pending path results and based on clinical status at that time (needs referral for GI follow up at discharge) MADRID cirrhosis of liver MELD 26 - Continue lactulose - EGD this admission with PHG but no varices. No BB 2/2 hypotension - HCC screening UTD Metapneumovirus infection Supportive care, isolation Chronic pleural effusion Effusion is chronic and stable since at least CT Chest in January 2023. Pleural fluid was exudative at that time with no evidence of malignant cells on cytology. Thoracic consulted and pt is not a candidate for VATS. His current symptoms are more likely to be related to his viral infection than to this effusion ESRD on home dialysis - Neph consulted - Midodrine with HD - Continue cinacalcet, phos binder (sub formulary option) Atrial fibrillation s/p AVN ablation, PPM on AC as above MRSA bacteremia on life long suppressive antibiotics Continue home doxy History of fungemia on chronic fluconazole Continue home fluconazole Insomnia continue home xanax nightly Complexity Hypothyroidism - Continue thyroid replacement. Any conditions listed below are present on admission unless otherwise specified. Medical Readiness For Discharge: Anticipated in 5+ Days DVT prophylaxis with hep gtt -> warfarin Anticipated Disposition: home when INR 2.5 Code status is Full Code Interval History / Subjective No acute events overnight. INR slowly improving. D/w and patient at bedside. No acute complaints. Objective Temp: [97.1 F (36.2 C)-98.1 F (36.7 C)] 97.5 F (36.4 C) Pulse (Heart Rate): [70-79] 70 Resp Rate: [16-18] 16 BP: (106-119)/(51-56) 119/51 O2 Sat (%): [95 %-100 %] 98 % Physical Exam Gen: A, A, NAD ENT: MMM Resp: normal effort on room air Cardio: RRR, WWP Psych: Ox3, appropriate affect and cognition Data Review Ptt/Pt/Inr: 53.0/21.4/1.9 (03/02 0325-03/02 0813) [facility] Medicine Progress Note Patient: Christian Amador, : 1950, Impression / Plan Christian Amador is a 74 y.o. 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 He presented to OSH with fatigue and was transferred to [facility] for pleural fluid collection that was found to be chronic. He was found to have metapneumo virus infection. Also found to have acute on chronic anemia in setting of hematochezia for which he underwent colonoscopy which was inconclusive. He remains inpatient for heparin gtt bridge to home warfarin. S/p Mechanical MV Subtherapeutic INR INR goal 2.5-3.5, INR 1.7 on admission. On warfarin at home with regimen of 2mg M-F, 1mg on Sat and Sun (12mg total weekly dose). Stable dose regimen and no other medication or diet changes recently - heparin gtt to bridge until therapeutic on home warfarin (high risk medication requiring monitoring for toxicity) - pharmacy consulted for assistance with warfarin management and dose adjustments. Had been giving 4mg daily (double home dose) for several days without much movement. gave 8mg 02/24. Gave 4mg 02/25, pharm adjusted dose to 4 mg 02/27 with plan for 3 mg until therapeutic but INR not moving - will give 8 mg again 02/28, 03/01 and adjust tomorrow as needed Acute blood loss anemia 2/2 rectal bleeding Stenosis and ulceration of sigmoid colon c/f ischemia Bleeding external and internal hemorrhoids Hb back in Nov was 11, Hb 7.3 on admission and has remained stable. GI consulted and patient underwent colonoscopy which revealed area of stenosis and possible ischemia in sigmoid colon, unable to pass camera beyond stenosis. EGD revealed PHG. - path negative for malignancy - Repeat cscope date to be determined by GI pending path results and based on clinical status at that time (needs referral for GI follow up at discharge) MADRID cirrhosis of liver MELD 26 - Continue lactulose - EGD this admission with PHG but no varices. No BB 2/2 hypotension - HCC screening UTD Metapneumovirus infection Supportive care, isolation Chronic pleural effusion Effusion is chronic and stable since at least CT Chest in January 2023. Pleural fluid was exudative at that time with no evidence of malignant cells on cytology. Thoracic consulted and pt is not a candidate for VATS. His current symptoms are more likely to be related to his viral infection than to this effusion ESRD on home dialysis - Neph consulted - Midodrine with HD - Continue cinacalcet, phos binder (sub formulary option) Atrial fibrillation s/p AVN ablation, PPM on AC as above MRSA bacteremia on life long suppressive antibiotics Continue home doxy History of fungemia on chronic fluconazole Continue home fluconazole Insomnia continue home xanax nightly Complexity Hypothyroidism - Continue thyroid replacement. Any conditions listed below are present on admission unless otherwise specified. Medical Readiness For Discharge: Anticipated in 5+ Days DVT prophylaxis with hep gtt -> warfarin Anticipated Disposition: home when INR 2.5 Code status is Full Code Interval History / Subjective No acute events overnight. INR flat again today. Continuing increased dose. No acute complaints. Objective Temp: [97.2 F (36.2 C)-98.5 F (36.9 C)] 97.5 F (36.4 C) Pulse (Heart Rate): [69-82] 82 Resp Rate: [16-28] 16 BP: (88-112)/(46-59) 104/54 O2 Sat (%): [96 %-100 %] 96 % Physical Exam Gen: A, A, NAD ENT: MMM Resp: normal effort on room air Cardio: RRR, WWP Psych: Ox3, appropriate affect and cognition Data Review Ptt/Pt/Inr: 57.2/17.9/1.5 (02/28 2221-03/01 0539) Hospital Medicine Progress Note Patient: Christian Amador, : 1950, Impression / Plan Christian Amador is a 74 y.o. 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 He presented to OSH with fatigue and was transferred to [facility] for pleural fluid collection that was found to be chronic. He was found to have metapneumo virus infection. Also found to have acute on chronic anemia in setting of hematochezia for which he underwent colonoscopy which was inconclusive. He remains inpatient for heparin gtt bridge to home warfarin. S/p Mechanical MV Subtherapeutic INR INR goal 2.5-3.5, INR 1.7 on admission. On warfarin at home with regimen of 2mg M-F, 1mg on Sat and Sun (12mg total weekly dose). Stable dose regimen and no other medication or diet changes recently - heparin gtt to bridge until therapeutic on home warfarin (high risk medication requiring monitoring for toxicity) - pharmacy consulted for assistance with warfarin management and dose adjustments. Had been giving 4mg daily (double home dose) for several days without much movement. gave 8mg 02/24. Gave 4mg 02/25, pharm adjusted dose to 4 mg 02/27 with plan for 3 mg until therapeutic but INR not moving - will give 8 mg again 02/28 and adjust tomorrrow Acute blood loss anemia 2/2 rectal bleeding Stenosis and ulceration of sigmoid colon c/f ischemia Bleeding external and internal hemorrhoids Hb back in Nov was 11, Hb 7.3 on admission and has remained stable. GI consulted and patient underwent colonoscopy which revealed area of stenosis and possible ischemia in sigmoid colon, unable to pass camera beyond stenosis. EGD revealed PHG. - path negative for malignancy - Repeat cscope date to be determined by GI pending path results and based on clinical status at that time (needs referral for GI follow up at discharge) MADRID cirrhosis of liver MELD 26 - Continue lactulose - EGD this admission with PHG but no varices. No BB 2/2 hypotension - HCC screening UTD Metapneumovirus infection Supportive care, isolation Chronic pleural effusion Effusion is chronic and stable since at least CT Chest in January 2023. Pleural fluid was exudative at that time with no evidence of malignant cells on cytology. Thoracic consulted and pt is not a candidate for VATS. His current symptoms are more likely to be related to his viral infection than to this effusion ESRD on home dialysis - Neph consulted - Midodrine with HD - Continue cinacalcet, phos binder (sub formulary option) Atrial fibrillation s/p AVN ablation, PPM on AC as above MRSA bacteremia on life long suppressive antibiotics Continue home doxy History of fungemia on chronic fluconazole Continue home fluconazole Insomnia continue home xanax nightly Complexity Hypothyroidism - Continue thyroid replacement. Any conditions listed below are present on admission unless otherwise specified. Medical Readiness For Discharge: Anticipated in 5+ Days DVT prophylaxis with hep gtt -> warfarin Anticipated Disposition: home when INR 2.5 Code status is Full Code Interval History / Subjective No acute events overnight. INR flat today. D/w and patient plan to increase dose tonight, which they are both happy with. No acute complaints. Objective Temp: [97.3 F (36.3 C)-98.6 F (37 C)] 98.5 F (36.9 C) Pulse (Heart Rate): [69-79] 76 Resp Rate: [16] 16 BP: (103-124)/(46-75) 124/59 O2 Sat (%): [91 %-100 %] 92 % Physical Exam Gen: A, A, NAD ENT: MMM Resp: normal effort on room air Cardio: RRR, WWP Psych: Ox3, appropriate affect and cognition Data Review WBC/Hgb/Hct/Plts: 6.86/9.4/31.0/220 (02/28 109) Na/K+/Phos/Mg/Ca: 140/4.5/4.7/1.9/8.9 (02/28 109) Bun/Creat/Cl/CO2/Glucose: 36/6.59/101/25/114 (02/28 109) Ptt/Pt/Inr: 101.1/17.8/1.5 (02/28 0109-02/28 0759) Care Management Progress Note Plan of Care- Treatment Updates: Working on therapeutic INR, must be 2.5 prior to discharge. INR today 02/27 was 1.5 Discharge updates: Patient to discharge home with spouse, spouse to provide transportation. Patient has home HD, patient to follow with home hemo RN at discharge. Current Referrals and Status Home Dialysis info Selected Continued Care - Admitted Since 02/13/2025 Dialysis/Infusion Service Provider Services Address Phone Fax Patient Preferred [facility] [place] [facility] D[facility] [phone], [facility] [id number] [phone] -- Internal Comment last updated by ELAYNE Vo 2025 [id number] Home HD Sarah ANGULO, ELAYNE Clinical Trials Nurse [phone] Available on secure chat. Hospital Medicine Progress Note Patient: Christian Amador, : 1950, Impression / Plan Christian Amador is a 74 y.o. 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 He presented to OSH with fatigue and was transferred to [facility] for pleural fluid collection that was found to be chronic. He was found to have metapneumo virus infection. Also found to have acute on chronic anemia in setting of hematochezia for which he underwent colonoscopy which was inconclusive. He remains inpatient for heparin gtt bridge to home warfarin. S/p Mechanical MV Subtherapeutic INR INR goal 2.5-3.5, INR 1.7 on admission. On warfarin at home with regimen of 2mg M-F, 1mg on Sat and Sun (12mg total weekly dose). Stable dose regimen and no other medication or diet changes recently - heparin gtt to bridge until therapeutic on home warfarin (high risk medication requiring monitoring for toxicity) - pharmacy consulted for assistance with warfarin management and dose adjustments. Had been giving 4mg daily (double home dose) for several days without much movement. gave 8mg 02/24. Gave 4mg 02/25, pharm adjusted dose to 4 mg tonight, 02/27, then plan for 3 mg until therapeutic Acute blood loss anemia 2/2 rectal bleeding Stenosis and ulceration of sigmoid colon c/f ischemia Bleeding external and internal hemorrhoids Hb back in Nov was 11, Hb 7.3 on admission and has remained stable. GI consulted and patient underwent colonoscopy which revealed area of stenosis and possible ischemia in sigmoid colon, unable to pass camera beyond stenosis. EGD revealed PHG. - path negative for malignancy - Repeat cscope date to be determined by GI pending path results and based on clinical status at that time (needs referral for GI follow up at discharge) MADRID cirrhosis of liver MELD 26 - Continue lactulose - EGD this admission with PHG but no varices. No BB 2/2 hypotension - HCC screening UTD Metapneumovirus infection Supportive care, isolation Chronic pleural effusion Effusion is chronic and stable since at least CT Chest in January 2023. Pleural fluid was exudative at that time with no evidence of malignant cells on cytology. Thoracic consulted and pt is not a candidate for VATS. His current symptoms are more likely to be related to his viral infection than to this effusion ESRD on home dialysis - Neph consulted - Midodrine with HD - Continue cinacalcet, phos binder (sub formulary option) Atrial fibrillation s/p AVN ablation, PPM on AC as above MRSA bacteremia on life long suppressive antibiotics Continue home doxy History of fungemia on chronic fluconazole Continue home fluconazole Insomnia continue home xanax nightly Complexity Hypothyroidism - Continue thyroid replacement. Any conditions listed below are present on admission unless otherwise specified. Medical Readiness For Discharge: Anticipated in 5+ Days DVT prophylaxis with hep gtt -> warfarin Anticipated Disposition: home when INR 2.5 Code status is Full Code Interval History / Subjective No acute events overnight. INR slowly increasing, 1.5 today. Patient says it has taken him 2 weeks in the past to get INR up while hospitalized. No acute complaints. Objective Temp: [97.5 F (36.4 C)-98.6 F (37 C)] 98.3 F (36.8 C) Pulse (Heart Rate): [69-80] 69 Resp Rate: [16] 16 BP: (99-121)/(48-56) 106/54 O2 Sat (%): [93 %-99 %] 93 % Physical Exam Gen: A, A, NAD ENT: MMM Resp: normal effort on room air Cardio: RRR, WWP Psych: Ox3, appropriate affect and cognition Data Review Ptt/Pt/Inr: 97.6/17.6/1.5 (02/27 0205-02/27 0935) Hospital Medicine Progress Note Patient: Christian Amador, : 1950, Impression / Plan Christian Amador is a 74 y.o. 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 He presented to OSH with fatigue and was transferred to [facility] for pleural fluid collection that was found to be chronic. He was found to have metapneumo virus infection. Also found to have acute on chronic anemia in setting of hematochezia for which he underwent colonoscopy which was inconclusive. He remains inpatient for heparin gtt bridge to home warfarin. S/p Mechanical MV Subtherapeutic INR INR goal 2.5-3.5, INR 1.7 on admission. On warfarin at home with regimen of 2mg M-F, 1mg on Sat and Sun (12mg total weekly dose). Stable dose regimen and no other medication or diet changes recently - heparin gtt to bridge until therapeutic on home warfarin (high risk medication requiring monitoring for toxicity) - pharmacy consulted for assistance with warfarin management and dose adjustments. Had been giving 4mg daily (double home dose) for several days without much movement. gave 8mg 02/24. Gave 4mg 02/25, pharm adjusted dose to alternating 2mg, 1mg every other day Acute blood loss anemia 2/2 rectal bleeding Stenosis and ulceration of sigmoid colon c/f ischemia Bleeding external and internal hemorrhoids Hb back in Nov was 11, Hb 7.3 on admission and has remained stable. GI consulted and patient underwent colonoscopy which revealed area of stenosis and possible ischemia in sigmoid colon, unable to pass camera beyond stenosis. EGD revealed PHG. - path negative for malignancy - Repeat cscope date to be determined by GI pending path results and based on clinical status at that time (needs referral for GI follow up at discharge) MADRID cirrhosis of liver MELD 26 - Continue lactulose - EGD this admission with PHG but no varices. No BB 2/2 hypotension - HCC screening UTD Metapneumovirus infection Supportive care, isolation Chronic pleural effusion Effusion is chronic and stable since at least CT Chest in January 2023. Pleural fluid was exudative at that time with no evidence of malignant cells on cytology. Thoracic consulted and pt is not a candidate for VATS. His current symptoms are more likely to be related to his viral infection than to this effusion ESRD on home dialysis - Neph consulted - Midodrine with HD - Continue cinacalcet, phos binder (sub formulary option) Atrial fibrillation s/p AVN ablation, PPM on AC as above MRSA bacteremia on life long suppressive antibiotics Continue home doxy History of fungemia on chronic fluconazole Continue home fluconazole Insomnia continue home xanax nightly Complexity Hypothyroidism - Continue thyroid replacement. Any conditions listed below are present on admission unless otherwise specified. Medical Readiness For Discharge: Anticipated in 5+ Days DVT prophylaxis with hep gtt -> warfarin Anticipated Disposition: home when INR 2.5 Code status is Full Code Interval History / Subjective No acute events overnight. Seen in HD. INR slowly increasing, 1.4 today. Objective Temp: [97.4 F (36.3 C)-97.6 F (36.4 C)] 97.5 F (36.4 C) Pulse (Heart Rate): [69-77] 70 Resp Rate: [18-38] 18 BP: (86-118)/(45-67) 116/67 O2 Sat (%): [95 %-100 %] 97 % Physical Exam Gen: A, A, NAD ENT: MMM Resp: normal effort on room air Cardio: RRR, WWP Psych: Ox3, appropriate affect and cognition Data Review WBC/Hgb/Hct/Plts: 5.90/8.5/28.0/175 (02/255) Na/K+/Phos/Mg/Ca: 137/4.4/4.3/1.8/8.7 (02/25 2345) Bun/Creat/Cl/CO2/Glucose: 22/4.82/98/26/91 (02/25 2345) Ptt/Pt/Inr: 93.8/16.9/1.4 (02/25 2345) ESRD Note: Diagnosis: ESRD on dialysis currently hospitalized for workup of hematochezia. And pleural effusion Remains hospitalized to get his INR therapeutic Subjective: Feels ok today, seen during dialysis bp low but tolerating well continues to be in isolation Plan: ESRD MTTS- HD today, 3K, 2L UF (4x/week) this week did MWTH and will do sat Anemia of renal disease - Hb low, check iron saturation, start aranesp 60mcg/wk Secondary hyperparathyroidism - Phos at goal, continue phoslo, sensipar Blood pressure management in a patient with ESRD - acceptable, continue midodrine Access - RIJ TDC Nutrition - Nephronex/nephrocaps Pertinent Data/Labs: Lab Results Component Value Date POTASSIUM 4.4 02/25/2025 POTASSIUM 4.0 02/24/2025 POTASSIUM 3.7 02/21/2025 POTASSIUM 5.34 (H) 09/15/2021 POTASSIUM 4.8 08/07/2016 POTASSIUM 6.8 06/06/2016 POTASSIUM 6.6 06/05/2016 POTASSIUM 5.5 (H) 06/01/2016 POTASSIUM 5.0 05/31/2016 POTASSIUM 4.59 08/25/2003 POTASSIUM 4.20 08/24/2003 POTASSIUM 4.70 08/24/2003 Lab Results Component Value Date HGB 8.5 (L) 02/25/2025 HGB 8.8 (L) 02/24/2025 HGB 8.1 (L) 02/21/2025 HGB 9.8 (L) 08/07/2016 HGB 9.3 06/05/2016 HGB 8.9 (L) 06/01/2016 HGB 9.0 (L) 05/31/2016 IRONSATURAT 47 02/12/2023 IRONSATURAT 5 (L) 05/03/2016 FERRITIN 224.3 09/12/2021 FERRITIN 726 (H) 05/03/2016 Lab Results Component Value Date PHOSPHORUS 4.3 02/25/2025 PHOSPHORUS 2.8 02/24/2025 PHOSPHORUS 3.3 05/02/2016 PHOSPHORUS 4.0 05/01/2016 CALCIUM 8.7 02/25/2025 CALCIUM 8.6 02/24/2025 CALCIUM 9.4 08/07/2016 CALCIUM 9.4 06/01/2016 PTH 283.6 (H) 02/04/2023 PTH 101.8 (H) 09/13/2021 PTH 87.2 (H) 05/15/2016 BP Readings from Last 3 Encounters: 02/26/25 114/54 12/19/24 115/55 10/22/24 122/48 Physical Exam: BP 114/54 Pulse 74 Temp 97.6 F (36.4 C) (Oral) Resp (!) 31 Ht 1.702 m (5' 7.01) Wt 78.9 kg (173 lb 15.1 oz) SpO2 99% BMI 27.24 kg/m Smoking Status Never Gen: NAD Heart: audible heart sounds, no edema Lungs: CTAB Abd: soft, NT Neuro: Awake and alert Access: RIJ TDC ALPRAZolam 1 mg Oral QHS [Held by provider] calcium acetate - Phos Binder 667 mg Oral TID w/meals Cinacalcet 30 mg Oral Once per day on Sunday Cyclobenzaprine 10 mg Oral Q12H [START ON 2025] dialysate Dialysis Once in dialysis Doxycycline monohydrate 100 mg Oral Q12H Fluconazole 200 mg Oral QHS Lactulose 10 g Oral BID Levothyroxine 75 mcg Oral Before BKF Midodrine HCl 10 mg Oral Once per day on Sunday Pantoprazole 40 mg Oral BID vitamin C/B complex/folic acid (VIRT-CAPS) 1 capsule Oral Daily warfarin 2 mg Oral Once per day on Sunday And [START ON 02/28/2025] Warfarin 1 mg Oral Once per day on Sunday MARIA EUGENIA LANDRY M.D,ALEJANDRO Attending Nephrology ESRD Note: Diagnosis: ESRD on dialysis currently hospitalized for workup of hematochezia. And pleural effusion Remains hospitalized to get his INR therapeutic Subjective: Feels ok today, seen during dialysis bp low but tolerating well Plan: ESRD MTTS- HD today, 3K, 2L UF (4x/week) Anemia of renal disease - Hb low, check iron saturation, start aranesp 60mcg/wk Secondary hyperparathyroidism - Phos at goal, continue phoslo, sensipar Blood pressure management in a patient with ESRD - acceptable, continue midodrine Access - RIJ TDC Nutrition - Nephronex/nephrocaps Pertinent Data/Labs: Lab Results Component Value Date POTASSIUM 4.0 02/24/2025 POTASSIUM 3.7 02/21/2025 POTASSIUM 4.0 02/20/2025 POTASSIUM 5.34 (H) 09/15/2021 POTASSIUM 4.8 08/07/2016 POTASSIUM 6.8 06/06/2016 POTASSIUM 6.6 06/05/2016 POTASSIUM 5.5 (H) 06/01/2016 POTASSIUM 5.0 05/31/2016 POTASSIUM 4.59 08/25/2003 POTASSIUM 4.20 08/24/2003 POTASSIUM 4.70 08/24/2003 Lab Results Component Value Date HGB 8.8 (L) 02/24/2025 HGB 8.1 (L) 02/21/2025 HGB 8.2 (L) 02/20/2025 HGB 9.8 (L) 08/07/2016 HGB 9.3 06/05/2016 HGB 8.9 (L) 06/01/2016 HGB 9.0 (L) 05/31/2016 IRONSATURAT 47 02/12/2023 IRONSATURAT 5 (L) 05/03/2016 FERRITIN 224.3 09/12/2021 FERRITIN 726 (H) 05/03/2016 Lab Results Component Value Date PHOSPHORUS 2.8 02/24/2025 PHOSPHORUS 3.2 02/21/2025 PHOSPHORUS 3.3 05/02/2016 PHOSPHORUS 4.0 05/01/2016 CALCIUM 8.6 02/24/2025 CALCIUM 8.3 (L) 02/21/2025 CALCIUM 9.4 08/07/2016 CALCIUM 9.4 06/01/2016 PTH 283.6 (H) 02/04/2023 PTH 101.8 (H) 09/13/2021 PTH 87.2 (H) 05/15/2016 BP Readings from Last 3 Encounters: 02/25/25 102/52 12/19/24 115/55 10/22/24 122/48 Physical Exam: BP 102/52 Pulse 71 Temp 97.9 F (36.6 C) (Oral) Resp (!) 32 Ht 1.702 m (5' 7.01) Wt 78.9 kg (173 lb 15.1 oz) SpO2 99% BMI 27.24 kg/m Smoking Status Never Gen: NAD Heart: audible heart sounds, no edema Lungs: CTAB Abd: soft, NT Neuro: Awake and alert Access: RIJ TDC ALPRAZolam 1 mg Oral QHS [Held by provider] calcium acetate - Phos Binder 667 mg Oral TID w/meals Cinacalcet 30 mg Oral Once per day on Sunday Cyclobenzaprine 10 mg Oral Q12H [START ON 02/26/2025] dialysate Dialysis Once in dialysis Doxycycline monohydrate 100 mg Oral Q12H Fluconazole 200 mg Oral QHS Lactulose 10 g Oral BID Levothyroxine 75 mcg Oral Before BKF Midodrine HCl 10 mg Oral Once per day on Sunday Pantoprazole 40 mg Oral BID vitamin C/B complex/folic acid (VIRT-CAPS) 1 capsule Oral Daily [START ON 02/26/2025] warfarin 2 mg Oral Once per day on Sunday And [START ON 02/28/2025] Warfarin 1 mg Oral Once per day on Sunday Warfarin 4 mg Oral Daily early evening MARIA EUGENIA LANDRY M.D,ALEJANDRO Attending Nephrology [facility] Medicine Progress Note Patient: Christian Amador, : 1950, Impression / Plan Christian Amador is a 74 y.o. 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 He presented to OSH with fatigue and was transferred to [facility] for pleural fluid collection that was found to be chronic. He was found to have metapneumo virus infection. Also found to have acute on chronic anemia in setting of hematochezia for which he underwent colonoscopy which was inconclusive. He remains inpatient for heparin gtt bridge to home warfarin. S/p Mechanical MV Subtherapeutic INR INR goal 2.5-3.5, INR 1.7 on admission. On warfarin at home with regimen of 2mg M-F, 1mg on Sat and Sun (12mg total weekly dose). Stable dose regimen and no other medication or diet changes recently - heparin gtt to bridge until therapeutic on home warfarin (high risk medication requiring monitoring for toxicity) - pharmacy consulted for assistance with warfarin management and dose adjustments. Had been giving 4mg daily (double home dose) for several days without much movement. gave 8mg 02/24. Will give 4mg today 02/25 Acute blood loss anemia 2/2 rectal bleeding Stenosis and ulceration of sigmoid colon c/f ischemia Bleeding external and internal hemorrhoids Hb back in Nov was 11, Hb 7.3 on admission and has remained stable. GI consulted and patient underwent colonoscopy which revealed area of stenosis and possible ischemia in sigmoid colon, unable to pass camera beyond stenosis. EGD revealed PHG. - await colon pathology results. Repeat cscope date to be determined by GI pending path results and based on clinical status at that time (needs referral for GI follow up at discharge) MADRID cirrhosis of liver MELD 26 - Continue lactulose - EGD this admission with PHG but no varices. No BB 2/2 hypotension - HCC screening UTD Metapneumovirus infection Supportive care, isolation Chronic pleural effusion Effusion is chronic and stable since at least CT Chest in January 2023. Pleural fluid was exudative at that time with no evidence of malignant cells on cytology. Thoracic consulted and pt is not a candidate for VATS. His current symptoms are more likely to be related to his viral infection than to this effusion ESRD on home dialysis - Neph consulted - Midodrine with HD - Continue cinacalcet, phos binder (sub formulary option) Atrial fibrillation s/p AVN ablation, PPM on AC as above MRSA bacteremia on life long suppressive antibiotics Continue home doxy History of fungemia on chronic fluconazole Continue home fluconazole Insomnia continue home xanax nightly Complexity Hypothyroidism - Continue thyroid replacement. Any conditions listed below are present on admission unless otherwise specified. Medical Readiness For Discharge: Anticipated in 5+ Days DVT prophylaxis with hep gtt -> warfarin Anticipated Disposition: home when INR 2.5 Code status is Full Code Hien Anderson MD [facility] Hospital Medicine [id number] Interval History / Subjective No new issues INR 1.3 Seen this afternoon after HD Objective Temp: [97.7 F (36.5 C)-98.6 F (37 C)] 97.7 F (36.5 C) Pulse (Heart Rate): [69-84] 73 Resp Rate: [16-36] 20 BP: (88-130)/(45-64) 97/51 O2 Sat (%): [94 %-100 %] 98 % Physical Exam Gen: A, A, NAD ENT: MMM Resp: normal effort on room air Cardio: RRR, WWP Psych: Ox3, appropriate affect and cognition Data Review Ptt/Pt/Inr: 79.7/15.8/1.3 (02/24 2307-02/25 1135) Follow up Note: Diagnosis: ESRD on dialysis currently hospitalized for workup of hematochezia./pleural effusion Remains hospitalized to get his INR therapeutic Subjective: Feels ok today, no chest pain no sob denies nausea or vommitting looks tired Plan: ESRD MTTS- HD Sunday , 3K, 2L UF (4x/week) Anemia of renal disease - Hb low, check iron saturation, start aranesp 60mcg/wk Secondary hyperparathyroidism - Phos at goal, continue phoslo, sensipar Blood pressure management in a patient with ESRD - acceptable, continue midodrine Access - RIJ TDC Nutrition - Nephronex/nephrocaps Pertinent Data/Labs: Lab Results Component Value Date POTASSIUM 4.0 02/24/2025 POTASSIUM 3.7 02/21/2025 POTASSIUM 4.0 02/20/2025 POTASSIUM 5.34 (H) 09/15/2021 POTASSIUM 4.8 08/07/2016 POTASSIUM 6.8 06/06/2016 POTASSIUM 6.6 06/05/2016 POTASSIUM 5.5 (H) 06/01/2016 POTASSIUM 5.0 05/31/2016 POTASSIUM 4.59 08/25/2003 POTASSIUM 4.20 08/24/2003 POTASSIUM 4.70 08/24/2003 Lab Results Component Value Date HGB 8.8 (L) 02/24/2025 HGB 8.1 (L) 02/21/2025 HGB 8.2 (L) 02/20/2025 HGB 9.8 (L) 08/07/2016 HGB 9.3 06/05/2016 HGB 8.9 (L) 06/01/2016 HGB 9.0 (L) 05/31/2016 IRONSATURAT 47 02/12/2023 IRONSATURAT 5 (L) 05/03/2016 FERRITIN 224.3 09/12/2021 FERRITIN 726 (H) 05/03/2016 Lab Results Component Value Date PHOSPHORUS 2.8 02/24/2025 PHOSPHORUS 3.2 02/21/2025 PHOSPHORUS 3.3 05/02/2016 PHOSPHORUS 4.0 05/01/2016 CALCIUM 8.6 02/24/2025 CALCIUM 8.3 (L) 02/21/2025 CALCIUM 9.4 08/07/2016 CALCIUM 9.4 06/01/2016 PTH 283.6 (H) 02/04/2023 PTH 101.8 (H) 09/13/2021 PTH 87.2 (H) 05/15/2016 BP Readings from Last 3 Encounters: 02/24/25 98/50 12/19/24 115/55 10/22/24 122/48 Physical Exam: BP 98/50 (BP Location: Left arm, BP Position: Lying) Pulse 72 Temp 97.8 F (36.6 C) (Oral) Resp 16 Ht 1.702 m (5' 7.01) Wt 78.9 kg (173 lb 15.1 oz) SpO2 94% BMI 27.24 kg/m Smoking Status Never Gen: NAD Heart: audible heart sounds, no edema Lungs: CTAB Abd: soft, NT Neuro: Awake and alert Access: RIJ TDC ALPRAZolam 1 mg Oral QHS [Held by provider] calcium acetate - Phos Binder 667 mg Oral TID w/meals Cinacalcet 30 mg Oral Once per day on Sunday Cyclobenzaprine 10 mg Oral Q12H Doxycycline monohydrate 100 mg Oral Q12H Fluconazole 200 mg Oral QHS Lactulose 10 g Oral BID Levothyroxine 75 mcg Oral Before BKF Midodrine HCl 10 mg Oral Once per day on Sunday Pantoprazole 40 mg Oral BID vitamin C/B complex/folic acid (VIRT-CAPS) 1 capsule Oral Daily warfarin 2 mg Oral Once per day on Sunday And [START ON 02/28/2025] Warfarin 1 mg Oral Once per day on Sunday Warfarin 6 mg Oral Daily early evening MARIA EUGENIA LANDRY M.D,ALEJANDRO Attending Nephrology [facility] Medicine Progress Note Patient: Christian Amador, : 1950, Impression / Plan Christian Amador is a 74 y.o. 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 He presented to OSH with fatigue and was transferred to [facility] for pleural fluid collection that was found to be chronic. He was found to have metapneumo virus infection. Also found to have acute on chronic anemia in setting of hematochezia for which he underwent colonoscopy which was inconclusive. He remains inpatient for heparin gtt bridge to home warfarin. S/p Mechanical MV Subtherapeutic INR INR goal 2.5-3.5, INR 1.7 on admission. On warfarin at home with regimen of 2mg M-F, 1mg on Sat and Sun (12mg total weekly dose) - heparin gtt to bridge until therapeutic on home warfarin (high risk medication requiring monitoring for toxicity) - pharmacy consulted for assistance with warfarin management and dose adjustments. Will give 8mg today 02/24 as his INR has not increased after several days of 4mg. Additionally, pt reports in past he has needed up to 10mg daily x3 days for his INR to increase Acute blood loss anemia 2/2 rectal bleeding Stenosis and ulceration of sigmoid colon c/f ischemia Bleeding external and internal hemorrhoids Hb back in Nov was 11, Hb 7.3 on admission and has remained stable. GI consulted and patient underwent colonoscopy which revealed area of stenosis and possible ischemia in sigmoid colon, unable to pass camera beyond stenosis. EGD revealed PHG. - await colon pathology results. Repeat cscope date to be determined by GI pending path results and based on clinical status at that time (needs referral for GI follow up at discharge) MADRID cirrhosis of liver MELD 26 - Continue lactulose - EGD this admission with PHG but no varices. No BB 2/2 hypotension - HCC screening UTD Metapneumovirus infection Supportive care, isolation Chronic pleural effusion Effusion is chronic and stable since at least CT Chest in January 2023. Pleural fluid was exudative at that time with no evidence of malignant cells on cytology. Thoracic consulted and pt is not a candidate for VATS. His current symptoms are more likely to be related to his viral infection than to this effusion ESRD on home dialysis - Neph consulted - Midodrine with HD - Continue cinacalcet, phos binder (sub formulary option) Atrial fibrillation s/p AVN ablation, PPM on AC as above MRSA bacteremia on life long suppressive antibiotics Continue home doxy History of fungemia on chronic fluconazole Continue home fluconazole Insomnia continue home xanax nightly Complexity Hypothyroidism - Continue thyroid replacement. Any conditions listed below are present on admission unless otherwise specified. Medical Readiness For Discharge: Anticipated in 5+ Days DVT prophylaxis with hep gtt -> warfarin Anticipated Disposition: home when INR 2.5 Code status is Full Code Hien Anderson MD [facility] Medicine [id number] Interval History / Subjective No new issues INR 1.2 at bedside Objective Temp: [97.5 F (36.4 C)-98.4 F (36.9 C)] 97.8 F (36.6 C) Pulse (Heart Rate): [69-82] 72 Resp Rate: [16-30] 16 BP: (86-111)/(47-64) 98/50 O2 Sat (%): [93 %-100 %] 94 % Physical Exam Gen: A, A, NAD ENT: MMM Resp: normal effort on room air Cardio: RRR, WWP Psych: Ox3, appropriate affect and cognition Data Review WBC/Hgb/Hct/Plts: 6.26/8.8/28.9/159 (02/24 0002) Na/K+/Phos/Mg/Ca: 139/4.0/2.8/1.8/8.6 (02/24 0002) Bun/Creat/Cl/CO2/Glucose: 17/3.74/99/27/81 (02/24 0002) Ptt/Pt/Inr: 75.1/15.5/1.2 (02/24 0433-02/24 1049) ESRD Note: Diagnosis: ESRD on dialysis currently hospitalized for workup of hematochezia. Remains hospitalized to get his INR therapeutic Subjective: Feels ok today, seen prior to dialysis Plan: ESRD MTTS- HD today, 3K, 2L UF (4x/week) Anemia of renal disease - Hb low, check iron saturation, start aranesp 60mcg/wk Secondary hyperparathyroidism - Phos at goal, continue phoslo, sensipar Blood pressure management in a patient with ESRD - acceptable, continue midodrine Access - RIJ TDC Nutrition - Nephronex/nephrocaps Pertinent Data/Labs: Lab Results Component Value Date POTASSIUM 3.7 02/21/2025 POTASSIUM 4.0 02/20/2025 POTASSIUM 3.8 02/19/2025 POTASSIUM 5.34 (H) 09/15/2021 POTASSIUM 4.8 08/07/2016 POTASSIUM 6.8 06/06/2016 POTASSIUM 6.6 06/05/2016 POTASSIUM 5.5 (H) 06/01/2016 POTASSIUM 5.0 05/31/2016 POTASSIUM 4.59 08/25/2003 POTASSIUM 4.20 08/24/2003 POTASSIUM 4.70 08/24/2003 Lab Results Component Value Date HGB 8.1 (L) 02/21/2025 HGB 8.2 (L) 02/20/2025 HGB 8.0 (L) 02/19/2025 HGB 9.8 (L) 08/07/2016 HGB 9.3 06/05/2016 HGB 8.9 (L) 06/01/2016 HGB 9.0 (L) 05/31/2016 IRONSATURAT 47 02/12/2023 IRONSATURAT 5 (L) 05/03/2016 FERRITIN 224.3 09/12/2021 FERRITIN 726 (H) 05/03/2016 Lab Results Component Value Date PHOSPHORUS 3.2 02/21/2025 PHOSPHORUS 2.1 (L) 02/20/2025 PHOSPHORUS 3.3 05/02/2016 PHOSPHORUS 4.0 05/01/2016 CALCIUM 8.3 (L) 02/21/2025 CALCIUM 8.0 (L) 02/14/2025 CALCIUM 9.4 08/07/2016 CALCIUM 9.4 06/01/2016 PTH 283.6 (H) 02/04/2023 PTH 101.8 (H) 09/13/2021 PTH 87.2 (H) 05/15/2016 BP Readings from Last 3 Encounters: 02/23/25 102/51 12/19/24 115/55 10/22/24 122/48 Physical Exam: BP 102/51 Pulse 69 Temp 97.3 F (36.3 C) (Oral) Resp (!) 26 Ht 1.702 m (5' 7.01) Wt 78.9 kg (173 lb 15.1 oz) SpO2 100% BMI 27.24 kg/m Smoking Status Never Gen: NAD Heart: audible heart sounds, no edema Lungs: CTAB Abd: soft, NT Neuro: Awake and alert Access: RIJ TDC ALPRAZolam 1 mg Oral QHS [Held by provider] calcium acetate - Phos Binder 667 mg Oral TID w/meals Cinacalcet 30 mg Oral Once per day on Sunday Cyclobenzaprine 10 mg Oral Q12H [START ON 02/26/2025] dialysate Dialysis Once in dialysis Doxycycline monohydrate 100 mg Oral Q12H Fluconazole 200 mg Oral QHS Lactulose 10 g Oral BID Levothyroxine 75 mcg Oral Before BKF Midodrine HCl 10 mg Oral Once per day on Sunday Pantoprazole 40 mg Oral BID vitamin C/B complex/folic acid (VIRT-CAPS) 1 capsule Oral Daily warfarin 2 mg Oral Once per day on Sunday And [START ON 02/28/2025] Warfarin 1 mg Oral Once per day on Sunday ROSE Browne, MS Attending [employer] NUTRITION RISK SCREENING NOTE Pt with identified nutrition risk factors: Current admit, PMHx, and Low Fabian score Nutrition Plan of Care: 1. Continue current diet order. 2. No oral supplements warranted at this time. 3. Monitor for significant weight changes. 4. Monitor GI and skin integrity. 5. Monitor and encourage po intakes with goal of average po being 75%. 6. Cooperer to follow. Christian Amador is a 74 y.o. male admitted with a PMH of ESRD on home dialysis, atrial fibrillation s/p AVN ablation and PPM, MRSA bacteremia on life long suppressive antibiotics, fungemia on chronic fluconazole, mechanical mitral valve, and MADRID cirrhosis of liver, presented to OSH with fatigue, transferred to [facility] for pleural fluid collection that was found to be chronic. Also found to have acute on chronic anemia in setting of hematochezia. Past medical history reviewed in chart. Pt is being seen for nutrition screen due to the following: admission 7 days or greater Nutrition Risk Factor Screening Met with patient today at bedside wearing mask to obtain following information: Pt's appetite is good. Pt with no nausea, vomiting, diarrhea or constipation GI: Last Bowel Movement: 02/22/25 Pt with no issues with chewing and/or swallowing Food Allergies reviewed:None Cultural or Uatsdin Restrictions/Preferences: None Pt reports weight loss of 1 lbs in 10 days . Nutrition Risk Screening (MST) Have you recently lost weight without trying?: 0- no Have you been eating poorly because of decreased appetite?: 0- No Malnutrition Screening Tool Score: 0 Skin Assessment Fabian Score: 18 STAND skin bundle initiated Active Wounds: Wound Skin Tear 02/03/23 1515 Midline;Posterior Buttocks (751) Wound Surgical 02/13/23 0820 incision Left Back (741) Edema none I/O Net IO Since Admission: -2,684.15 mL [02/23/25 1514] Additional Information Pt stated having a good appetite/PO and has been consuming 100% of most all meals this admission. Pt has no other nutritional concerns and denies N/V, diarrhea, constipation,chewing/swallow issues or severe weight changes over the past three months. Follow for tolerance to PO and weight changes. Current Diet Order DIET PHOSPHORUS AND POTASSIUM RESTRICTED (RENAL) Anthropometrics Height: 170.2 cm (5' 7.01) Admit wt: 174 lb IBW: 148 lb %IBW: 118% BMI: 27.2 UBW: 174 lb %UBW: 100% Wt Readings from Last 10 Encounters: 02/17/25 78.9 kg (173 lb 15.1 oz) 12/18/24 79.2 kg (174 lb 8 oz) 10/22/24 78.9 kg (174 lb) 04/16/24 (P) 78.9 kg (174 lb) 04/02/24 76.5 kg (168 lb 10.4 oz) 03/24/24 77.1 kg (169 lb 15.6 oz) 12/05/23 77.1 kg (170 lb) 07/13/23 79.4 kg (175 lb) 02/12/23 74.4 kg (164 lb 0.4 oz) 01/15/23 79.4 kg (175 lb) PAMELA Greenberg Pager:[phone] Hospital Medicine Progress Note Patient: Christian Amador, : 1950, Impression / Plan Christian Amador is a 74 y.o. 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 He presented to OSH with fatigue and was transferred to [facility] for pleural fluid collection that was found to be chronic. He was found to have metapneumo virus infection. Also found to have acute on chronic anemia in setting of hematochezia for which he underwent colonoscopy which was inconclusive. He remains inpatient for heparin gtt bridge to home warfarin. S/p Mechanical MV Subtherapeutic INR INR goal 2.5-3.5, INR 1.7 on admission. On warfarin at home with regimen of 2mg M-F, 1mg on Sat and Sun (12mg total weekly dose) - heparin gtt to bridge until therapeutic on home warfarin (high risk medication requiring monitoring for toxicity) - pharmacy consulted for assistance with warfarin management and dose adjustments Acute blood loss anemia 2/2 rectal bleeding Stenosis and ulceration of sigmoid colon c/f ischemia Bleeding external and internal hemorrhoids Hb back in Nov was 11, Hb 7.3 on admission and has remained stable. GI consulted and patient underwent colonoscopy which revealed area of stenosis and possible ischemia in sigmoid colon, unable to pass camera beyond stenosis. EGD revealed PHG. - await colon pathology results. Repeat cscope date to be determined by GI pending path results and based on clinical status at that time (needs referral for GI follow up at discharge) MADRID cirrhosis of liver MELD 26 - Continue lactulose - EGD this admission with PHG but no varices. No BB 2/2 hypotension - HCC screening UTD Metapneumovirus infection Supportive care, isolation Chronic pleural effusion Effusion is chronic and stable since at least CT Chest in January 2023. Pleural fluid was exudative at that time with no evidence of malignant cells on cytology. Thoracic consulted and pt is not a candidate for VATS. His current symptoms are more likely to be related to his viral infection than to this effusion ESRD on home dialysis - Neph consulted - Midodrine with HD - Continue cinacalcet, phos binder (sub formulary option) Atrial fibrillation s/p AVN ablation, PPM on AC as above MRSA bacteremia on life long suppressive antibiotics Continue home doxy History of fungemia on chronic fluconazole Continue home fluconazole Insomnia continue home xanax nightly Complexity Hypomagnesemia - Continue to monitor and replete. Hypocalcemia - Continue to monitor and replete. Thrombocytopenia - Continue to monitor. Hypothyroidism - Continue thyroid replacement. Any conditions listed below are present on admission unless otherwise specified. Medical Readiness For Discharge: Anticipated in 5+ Days DVT prophylaxis with hep gtt -> warfarin Anticipated Disposition: home when INR 2.5 Code status is Full Code Hien Anderson MD [facility] Medicine [id number] Interval History / Subjective No new issues INR 1.1 Objective Temp: [97.3 F (36.3 C)-98.3 F (36.8 C)] 98.2 F (36.8 C) Pulse (Heart Rate): [69-95] 71 Resp Rate: [16] 16 BP: (92-113)/(48-57) 110/53 O2 Sat (%): [94 %-100 %] 96 % Physical Exam Gen: A, A, NAD ENT: MMM Resp: normal effort on room air Cardio: RRR, WWP Psych: Ox3, appropriate affect and cognition Data Review Ptt/Pt/Inr: 41.8/14.5/1.1 (02/23 417-02/23 05) Hospital Medicine Progress Note Patient: Christian Amador, : 1950, Impression / Plan Christian Amador is a 74 y.o. 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 He presented to OSH with fatigue and was transferred to [facility] for pleural fluid collection that was found to be chronic. He was found to have metapneumo virus infection. Also found to have acute on chronic anemia in setting of hematochezia for which he underwent colonoscopy which was inconclusive. He remains inpatient for heparin gtt bridge to home warfarin. S/p Mechanical MV Subtherapeutic INR INR goal 2.5-3.5, INR 1.7 on admission. On warfarin at home with regimen of 2mg M-F, 1mg on Sat and Sun (12mg total weekly dose) - heparin gtt to bridge until therapeutic on home warfarin (high risk medication requiring monitoring for toxicity) - pharmacy consulted for assistance with warfarin management and dose adjustments Acute blood loss anemia 2/2 rectal bleeding Stenosis and ulceration of sigmoid colon c/f ischemia Bleeding external and internal hemorrhoids Hb back in Nov was 11, Hb 7.3 on admission and has remained stable. GI consulted and patient underwent colonoscopy which revealed area of stenosis and possible ischemia in sigmoid colon, unable to pass camera beyond stenosis. EGD revealed PHG. - await colon pathology results. Repeat cscope date to be determined by GI pending path results and based on clinical status at that time (needs referral for GI follow up at discharge) MADRID cirrhosis of liver MELD 26 - Continue lactulose - EGD this admission with PHG but no varices. No BB 2/2 hypotension - HCC screening UTD Metapneumovirus infection Supportive care, isolation Chronic pleural effusion Effusion is chronic and stable since at least CT Chest in January 2023. Pleural fluid was exudative at that time with no evidence of malignant cells on cytology. Thoracic consulted and pt is not a candidate for VATS. His current symptoms are more likely to be related to his viral infection than to this effusion ESRD on home dialysis - Neph consulted - Midodrine with HD - Continue cinacalcet, phos binder (sub formulary option) Atrial fibrillation s/p AVN ablation, PPM on AC as above MRSA bacteremia on life long suppressive antibiotics Continue home doxy History of fungemia on chronic fluconazole Continue home fluconazole Insomnia continue home xanax nightly Complexity Hypomagnesemia - Continue to monitor and replete. Hypocalcemia - Continue to monitor and replete. Thrombocytopenia - Continue to monitor. Hypothyroidism - Continue thyroid replacement. Any conditions listed below are present on admission unless otherwise specified. Medical Readiness For Discharge: Anticipated in 5+ Days DVT prophylaxis with hep gtt -> warfarin Anticipated Disposition: home when INR 2.5 Code status is Full Code Hien Anderson MD [facility] [id number] Interval History / Subjective No new issues INR 1.1 Objective Temp: [97.2 F (36.2 C)-98.2 F (36.8 C)] 98.1 F (36.7 C) Pulse (Heart Rate): [69-77] 75 Resp Rate: [14-55] 16 BP: (94-118)/(46-66) 109/55 O2 Sat (%): [94 %-100 %] 94 % Physical Exam Gen: A, A, NAD ENT: MMM Resp: normal effort on room air Cardio: RRR, WWP Psych: Ox3, appropriate affect and cognition Data Review Ptt/Pt/Inr: 74.0/14.2/1.1 (02/23 132-02/22 829) ESRD Note: Diagnosis: ESRD on dialysis currently hospitalized for workup of hematochezia Subjective: seen on floor prior to dialysis, feeling weak. SOB at baseline. Not lightheaded or dizzy. Plan: ESRD MTTS- HD today, 3K, 2L UF (4x/week) Anemia of renal disease - Hb low, aranesp 60mcg/wk Secondary hyperparathyroidism - Phos at goal, continue phoslo, sensipar Blood pressure management in a patient with ESRD - acceptable, continue midodrine Access - RIJ TDC Nutrition - Nephronex/nephrocaps Pertinent Data/Labs: Lab Results Component Value Date POTASSIUM 3.7 02/21/2025 POTASSIUM 4.0 02/20/2025 POTASSIUM 3.8 02/19/2025 POTASSIUM 5.34 (H) 09/15/2021 POTASSIUM 4.8 08/07/2016 POTASSIUM 6.8 06/06/2016 POTASSIUM 6.6 06/05/2016 POTASSIUM 5.5 (H) 06/01/2016 POTASSIUM 5.0 05/31/2016 POTASSIUM 4.59 08/25/2003 POTASSIUM 4.20 08/24/2003 POTASSIUM 4.70 08/24/2003 Lab Results Component Value Date HGB 8.1 (L) 02/21/2025 HGB 8.2 (L) 02/20/2025 HGB 8.0 (L) 02/19/2025 HGB 9.8 (L) 08/07/2016 HGB 9.3 06/05/2016 HGB 8.9 (L) 06/01/2016 HGB 9.0 (L) 05/31/2016 IRONSATURAT 47 02/12/2023 IRONSATURAT 5 (L) 05/03/2016 FERRITIN 224.3 09/12/2021 FERRITIN 726 (H) 05/03/2016 Lab Results Component Value Date PHOSPHORUS 3.2 02/21/2025 PHOSPHORUS 2.1 (L) 02/20/2025 PHOSPHORUS 3.3 05/02/2016 PHOSPHORUS 4.0 05/01/2016 CALCIUM 8.3 (L) 02/21/2025 CALCIUM 8.0 (L) 02/14/2025 CALCIUM 9.4 08/07/2016 CALCIUM 9.4 06/01/2016 PTH 283.6 (H) 02/04/2023 PTH 101.8 (H) 09/13/2021 PTH 87.2 (H) 05/15/2016 BP Readings from Last 3 Encounters: 02/21/25 118/53 12/19/24 115/55 10/22/24 122/48 Physical Exam: BP 118/53 (BP Location: Right arm, BP Position: Lying) Pulse 71 Temp 98.1 F (36.7 C) (Oral) Resp 22 Ht 1.702 m (5' 7.01) Wt 78.9 kg (173 lb 15.1 oz) SpO2 94% BMI 27.24 kg/m Smoking Status Never Gen: NAD HEENT: MMM, no icterus or pallor Heart: regular, no edema Lungs: Comfortable breathing, no wheezing Abd: soft, NT Neuro: Awake and alert Access: RIJ TDC ALPRAZolam 1 mg Oral QHS [Held by provider] calcium acetate - Phos Binder 667 mg Oral TID w/meals Cinacalcet 30 mg Oral Once per day on Sunday Cyclobenzaprine 10 mg Oral Q12H Doxycycline monohydrate 100 mg Oral Q12H Fluconazole 200 mg Oral QHS Lactulose 10 g Oral BID Levothyroxine 75 mcg Oral Before BKF Midodrine HCl 10 mg Oral Once per day on Sunday Pantoprazole 40 mg Oral BID vitamin C/B complex/folic acid (VIRT-CAPS) 1 capsule Oral Daily [START ON 02/23/2025] warfarin 2 mg Oral Once per day on Sunday And Warfarin 1 mg Oral Once per day on Sunday Kaveh Perez MD Division of Nephrology [facility] Medicine Progress Note Patient: Christian Amador, : 1950, Impression / Plan Christian Amador is a 74 y.o. 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 He presented to OSH with fatigue and was transferred to [facility] for pleural fluid collection that was found to be chronic. He was found to have metapneumo virus infection. Also found to have acute on chronic anemia in setting of hematochezia for which he underwent colonoscopy which was inconclusive. He remains inpatient for heparin gtt bridge to home warfarin. S/p Mechanical MV Subtherapeutic INR INR goal 2.5-3.5, INR 1.7 on admission. On warfarin at home with regimen of 2mg M-F, 1mg on Sat and Sun (12mg total weekly dose) - heparin gtt to bridge until therapeutic on home warfarin (high risk medication requiring monitoring for toxicity) - pharmacy consulted for assistance with warfarin management and dose adjustments Acute blood loss anemia 2/2 rectal bleeding Stenosis and ulceration of sigmoid colon c/f ischemia Bleeding external and internal hemorrhoids Hb back in Nov was 11, Hb 7.3 on admission and has remained stable. GI consulted and patient underwent colonoscopy which revealed area of stenosis and possible ischemia in sigmoid colon, unable to pass camera beyond stenosis. EGD revealed PHG. - await colon pathology results. Repeat cscope date to be determined by GI pending path results and based on clinical status at that time (needs referral for GI follow up at discharge) MADRID cirrhosis of liver MELD 26 - Continue lactulose - EGD this admission with PHG but no varices. No BB 2/2 hypotension - HCC screening UTD Metapneumovirus infection Supportive care, isolation Chronic pleural effusion Effusion is chronic and stable since at least CT Chest in January 2023. Pleural fluid was exudative at that time with no evidence of malignant cells on cytology. Thoracic consulted and pt is not a candidate for VATS. His current symptoms are more likely to be related to his viral infection than to this effusion ESRD on home dialysis - Neph consulted - Midodrine with HD - Do not have his home phos binder on formulary, starting Phoslo while amditted - Continue cinacalcet Atrial fibrillation s/p AVN ablation, PPM on AC as above MRSA bacteremia on life long suppressive antibiotics Continue home doxy History of fungemia on chronic fluconazole Continue home fluconazole Insomnia continue home xanax nightly Complexity Hypomagnesemia - Continue to monitor and replete. Hypocalcemia - Continue to monitor and replete. Thrombocytopenia - Continue to monitor. Hypothyroidism - Continue thyroid replacement. Any conditions listed below are present on admission unless otherwise specified. Medical Readiness For Discharge: Anticipated in 5+ Days DVT prophylaxis with hep gtt -> warfarin Anticipated Disposition: home when INR 2.5 Code status is Full Code Hien Anderson MD Hospital Medicine [id number] Interval History / Subjective No new issues INR 1.2, hb stable at bedside Objective Temp: [97.3 F (36.3 C)-98.5 F (36.9 C)] 98.5 F (36.9 C) Pulse (Heart Rate): [69-71] 71 Resp Rate: [16-18] 16 BP: (94-103)/(47-55) 101/55 O2 Sat (%): [94 %-100 %] 94 % Physical Exam Gen: A, A, NAD ENT: MMM Resp: normal effort on room air Cardio: RRR, WWP Psych: Ox3, appropriate affect and cognition Data Review WBC/Hgb/Hct/Plts: 8.97/8.1/27.2/141 (02/21 319) Na/K+/Phos/Mg/Ca: 135/3.7/3.2/1.5/8.3 (02/21 319) Bun/Creat/Cl/CO2/Glucose: 28/6.62/99/23/108 (02/21 319) Ptt/Pt/Inr: 93.9/14.8/1.2 (02/21 319-02/21 1014) Care Management Progress Note Plan of Care- Treatment Updates: Currently working on heparin drip bridge to home warfarin. INR must be 2.5-3.5 to be therapeutic. Patient's INR 1.1 today /4. Discharge updates: Patient to discharge home with spouse. Patient to resume home HD through [facility] dialysis. Spouse to provide transportation. Barriers: Medical readiness (therapeutic INR) Sarah ANGULO, [employer] Clinical Trials Nurse [phone] Available on secure chat. Hospital Medicine Progress Note Patient: Christian Amador, : 1950, Impression / Plan Christian Amador is a 74 y.o. 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 He presented to OSH with fatigue and was transferred to [facility] for pleural fluid collection that was found to be chronic. He was found to have metapneumo virus infection. Also found to have acute on chronic anemia in setting of hematochezia for which he underwent colonoscopy which was inconclusive. He remains inpatient for heparin gtt bridge to home warfarin. S/p Mechanical MV Subtherapeutic INR INR goal 2.5-3.5, INR 1.7 on admission. On warfarin at home with regimen of 2mg M-F, 1mg on Sat and Sun (12mg total weekly dose) - heparin gtt to bridge until therapeutic on home warfarin (high risk medication requiring monitoring for toxicity) - received 4mg warfarin 02/19 and will order again today 02/20. pharmacy consulted for assistance with warfarin management and dose adjustments Acute blood loss anemia 2/2 rectal bleeding Stenosis and ulceration of sigmoid colon c/f ischemia Bleeding external and internal hemorrhoids Hb back in Nov was 11, Hb 7.3 on admission and has remained stable. GI consulted and patient underwent colonoscopy which revealed area of stenosis and possible ischemia in sigmoid colon, unable to pass camera beyond stenosis. EGD revealed PHG. - await colon pathology results. Repeat cscope date to be determined by GI pending path results and based on clinical status at that time (needs referral for GI follow up at discharge) MADRID cirrhosis of liver MELD 26 - Continue lactulose - EGD this admission with PHG but no varices. No BB 2/2 hypotension - HCC screening UTD Metapneumovirus infection Supportive care, isolation Chronic pleural effusion Effusion is chronic and stable since at least CT Chest in January 2023. Pleural fluid was exudative at that time with no evidence of malignant cells on cytology. Thoracic consulted and pt is not a candidate for VATS. His current symptoms are more likely to be related to his viral infection than to this effusion ESRD on home dialysis - Neph consulted - Midodrine with HD - Do not have his home phos binder on formulary, starting Phoslo while amditted - Continue cinacalcet Atrial fibrillation s/p AVN ablation, PPM on AC as above MRSA bacteremia on life long suppressive antibiotics Continue home doxy History of fungemia on chronic fluconazole Continue home fluconazole Insomnia continue home xanax nightly Complexity Hypocalcemia - Continue to monitor and replete. Hypophosphatemia - Continue to monitor and replete. Hypothyroidism - Continue thyroid replacement. Any conditions listed below are present on admission unless otherwise specified. Medical Readiness For Discharge: Anticipated in 5+ Days DVT prophylaxis with hep gtt -> warfarin Anticipated Disposition: home when INR 2.5 Code status is Full Code Hien Anderson MD [facility] Medicine [id number] Interval History / Subjective No new issues INR 1.1, hb stable at bedside Objective Temp: [97.5 F (36.4 C)-98.7 F (37.1 C)] 97.8 F (36.6 C) Pulse (Heart Rate): [69-76] 71 Resp Rate: [16-27] 18 BP: (89-108)/(45-62) 101/62 O2 Sat (%): [94 %-99 %] 94 % Physical Exam Gen: A, A, NAD ENT: MMM Resp: normal effort on room air Cardio: RRR, WWP Psych: Ox3, appropriate affect and cognition Data Review WBC/Hgb/Hct/Plts: 9.07/8.2/27.2/169 (02/20 303) Na/K+/Phos/Mg/Ca: 137/4.0/2.1/1.7/-- (02/20 303) Bun/Creat/Cl/CO2/Glucose: 14/4.40/98/28/99 (02/20 303) Ptt/Pt/Inr: 88.2/14.5/1.1 (02/20 030-02/20 1009) Pt is currently a Home Hemo pt at [facility] . Pt will need to follow up with their Home Hemo RN at discharge. Hospital Medicine Progress Note Patient: Christian Amador, : 1950, Impression / Plan Christian Amador is a 74 y.o. 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 He presented to OSH with fatigue and was transferred to [facility] for pleural fluid collection that was found to be chronic. He was found to have metapneumo virus infection. Also found to have acute on chronic anemia in setting of hematochezia for which he underwent colonoscopy which was inconclusive. He remains inpatient for heparin gtt bridge to home warfarin. S/p Mechanical MV Subtherapeutic INR INR goal 2.5-3.5, INR 1.7 on admission. On warfarin at home with regimen of 2mg M-F, 1mg on Sat and Sun. - heparin gtt to bridge until therapeutic on home warfarin (high risk medication requiring monitoring for toxicity) - will increase home dose to 4mg tonight 4.3 and then back to home reg tomorrow Acute blood loss anemia 2/2 rectal bleeding Stenosis and ulceration of sigmoid colon c/f ischemia Bleeding external and internal hemorrhoids Hb back in Nov was 11, Hb 7.3 on admission and has remained stable. GI consulted and patient underwent colonoscopy which revealed area of stenosis and possible ischemia in sigmoid colon, unable to pass camera beyond stenosis. EGD revealed PHG. - await colon pathology results. Repeat cscope date to be determined by GI pending path results and based on clinical status at that time (needs referral for GI follow up at discharge) MADRID cirrhosis of liver MELD 26 - Continue lactulose - EGD this admission with PHG but no varices. No BB 2/2 hypotension - HCC screening UTD Metapneumovirus infection Supportive care, isolation Chronic pleural effusion Effusion is chronic and stable since at least CT Chest in January 2023. Pleural fluid was exudative at that time with no evidence of malignant cells on cytology. Thoracic consulted and pt is not a candidate for VATS. His current symptoms are more likely to be related to his viral infection than to this effusion ESRD on home dialysis - Neph consulted - Midodrine with HD - Do not have his home phos binder on formulary, starting Phoslo while amditted - Continue cinacalcet Atrial fibrillation s/p AVN ablation, PPM on AC as above MRSA bacteremia on life long suppressive antibiotics Continue home doxy History of fungemia on chronic fluconazole Continue home fluconazole Insomnia continue home xanax nightly Complexity Hypocalcemia - Continue to monitor and replete. Hypothyroidism - Continue thyroid replacement. Any conditions listed below are present on admission unless otherwise specified. Medical Readiness For Discharge: Anticipated in 2-4 Days DVT prophylaxis with hep gtt -> warfarin Anticipated Disposition: home when INR 2.5 Code status is Full Code Hien Anderson MD [facility] Medicine [id number] Interval History / Subjective Pt feeling tired today, didn't sleep much overnight due to coughing Going for HD today at bedside. Questions answered Objective Temp: [97.6 F (36.4 C)-99.4 F (37.4 C)] 97.7 F (36.5 C) Pulse (Heart Rate): [69-80] 69 Resp Rate: [16-27] 21 BP: (89-107)/(45-61) 101/53 O2 Sat (%): [92 %-99 %] 99 % Physical Exam Gen: A, A, NAD ENT: MMM Resp: normal effort on room air with few crackles at bases Cardio: RRR, +mechanical valve click, WWP GI: S/NT/ND, NABS Psych: Ox3, appropriate affect and cognition Data Review WBC/Hgb/Hct/Plts: 9.51/8.0/26.3/166 (02/19 423) Na/K+/Phos/Mg/Ca: 137/3.8/3.2/1.6/-- (02/19 423) Bun/Creat/Cl/CO2/Glucose: 27/7.51/99/25/93 (02/19 423) Ptt/Pt/Inr: 93.3/15.4/1.2 (02/19 423) ESRD Note: Diagnosis: ESRD on dialysis currently hospitalized for workup of hematochezia Subjective: Feels ok today, seen prior to dialysis Plan: ESRD MTTS- HD today, 3K, 2L UF (4x/week) Anemia of renal disease - Hb low, check iron saturation, start aranesp 60mcg/wk Secondary hyperparathyroidism - Phos at goal, continue phoslo, sensipar Blood pressure management in a patient with ESRD - acceptable, continue midodrine Access - RIJ TD Nutrition - Nephronex/nephrocaps Pertinent Data/Labs: Lab Results Component Value Date POTASSIUM 3.8 02/19/2025 POTASSIUM 4.2 02/18/2025 POTASSIUM 4.1 02/17/2025 POTASSIUM 5.34 (H) 09/15/2021 POTASSIUM 4.8 08/07/2016 POTASSIUM 6.8 06/06/2016 POTASSIUM 6.6 06/05/2016 POTASSIUM 5.5 (H) 06/01/2016 POTASSIUM 5.0 05/31/2016 POTASSIUM 4.59 08/25/2003 POTASSIUM 4.20 08/24/2003 POTASSIUM 4.70 08/24/2003 Lab Results Component Value Date HGB 8.0 (L) 02/19/2025 HGB 8.2 (L) 02/18/2025 HGB 7.6 (L) 02/17/2025 HGB 9.8 (L) 08/07/2016 HGB 9.3 06/05/2016 HGB 8.9 (L) 06/01/2016 HGB 9.0 (L) 05/31/2016 IRONSATURAT 47 02/12/2023 IRONSATURAT 5 (L) 05/03/2016 FERRITIN 224.3 09/12/2021 FERRITIN 726 (H) 05/03/2016 Lab Results Component Value Date PHOSPHORUS 3.2 02/19/2025 PHOSPHORUS 2.7 02/18/2025 PHOSPHORUS 3.3 05/02/2016 PHOSPHORUS 4.0 05/01/2016 CALCIUM 8.0 (L) 02/14/2025 CALCIUM 7.5 (L) 02/13/2025 CALCIUM 9.4 08/07/2016 CALCIUM 9.4 06/01/2016 PTH 283.6 (H) 02/04/2023 PTH 101.8 (H) 09/13/2021 PTH 87.2 (H) 05/15/2016 BP Readings from Last 3 Encounters: 02/19/25 106/53 12/19/24 115/55 10/22/24 122/48 Physical Exam: BP 106/53 (BP Location: Left arm, BP Position: Lying) Pulse 80 Temp 97.7 F (36.5 C) (Oral) Resp 16 Ht 1.702 m (5' 7.01) Wt 78.9 kg (173 lb 15.1 oz) SpO2 95% BMI 27.24 kg/m Smoking Status Never Gen: NAD Heart: audible heart sounds, no edema Lungs: CTAB Abd: soft, NT Neuro: Awake and alert Access: RIJ TDC ALPRAZolam 1 mg Oral QHS calcium acetate - Phos Binder 667 mg Oral TID w/meals cefTRIAXone 1 g Intravenous Q24H Cinacalcet 30 mg Oral Once per day on Sunday Cyclobenzaprine 10 mg Oral Q12H Doxycycline monohydrate 100 mg Oral Q12H Fluconazole 200 mg Oral QHS Lactulose 10 g Oral BID Levothyroxine 75 mcg Oral Before BKF Midodrine HCl 10 mg Oral Once per day on Sunday Pantoprazole 40 mg Oral BID vitamin C/B complex/folic acid (VIRT-CAPS) 1 capsule Oral Daily warfarin 2 mg Oral Once per day on Sunday And Warfarin 1 mg Oral Once per day on Sunday ROSE Browne, MS Attending [employer] Hospital Medicine Progress Note Patient: Christian Amador, : 1950, Impression / Plan Christian Amador is a 74 y.o. male with a PMH of ESRD on home dialysis, atrial fibrillation s/p AVN ablation and PPM, MRSA bacteremia on life long suppressive antibiotics, fungemia on chronic fluconazole, mechanical mitral valve, and MADRID cirrhosis of liver, presented to OSH with fatigue, transferred to [facility] for pleural fluid collection that was found to be chronic. Also found to have acute on chronic anemia in setting of hematochezia. Fatigue/weakness Hematochezia Acute blood loss anemia Pt has known external hemorrhoids. Hb back in Nov was 11, Hb 7.3 on admission and has remained stable. - No recent colonoscopies seen in our system - Blood consent completed - monitor H/H, type and screen --H/H has remained stable - GI consulted-- -s/p EGD and colonoscopy -Area of stenosis and possible ischemia unable to pass in colonoscopy -Ulceration noted -Continue IV PPI until GI update -Resume regular diet per report recs -Follow up recs regarding colonoscopy findings -check folate- WNL/B12- c/w supplenentation today given macrocytosis Chronic pleural effusion Effusion is chronic as it was present at least [address] Chest, noted on CT Chest in January 2023 on L side. Pleural fluid was exudative at that time with no evidence of malignant cells on cytology. Thought secondary to PNA, completed tx with ceftriaxone x2 weeks and had chest tube placed for drainage. Although he has cough, he has not had fever and is on RA, breathing comfortably so holding off on antibiotics for now. - Thoracic consulted-- not a candidate for VATS - Pulm consulted-- did not recommend Chest tube- should re establish with pulm outpatient - Holding off on antibiotics for now -Check LRCX and RVP. Unable to get legionella/step Ag due to being anuric. -metapneumovirus positive- supportive care. Likely accounts for some of his fatigue/weakness. Metapneumovirus infection -supportive care, isolation Mechanical MV INR goal 2.5-3.5, INR 1.7 on admission. On warfarin at home with regimen of 2mg M-F, 1mg on Sat and Sun. - Resuming warfarin today, monitor INR - heparin gtt to bridge until therapeutic ESRD on home dialysis Pt reports he does HD at home 4x weekly. - Neph consulted - Midodrine with HD - Do not have his home phos binder on formulary, starting Phoslo while amditted - Continue cinacalcet Atrial fibrillation s/p AVN ablation PPM - on AC as above. Holding for colonoscopy MRSA bacteremia on life long suppressive antibiotics - Continue home doxy History of fungemia on chronic fluconazole - Continue home fluconazole MADRID cirrhosis of liver MELD 26 - Continue lactulose - No evidence of ascites on exam - Dec HCC screening negative Complexity Hypocalcemia - Continue to monitor and replete. Hypothyroidism - Continue thyroid replacement. Medical Readiness For Discharge: Anticipated in 2-4 Days DVT prophylaxis with currently on heparin gtt Anticipated Disposition: home Code status is Full Code Interval History / Subjective No acute events overnight, updated pt and his on plans Objective Temp: [97.5 F (36.4 C)-99.1 F (37.3 C)] 98.3 F (36.8 C) Pulse (Heart Rate): [69-74] 70 Resp Rate: [16-31] 16 BP: (92-113)/(47-63) 100/55 O2 Sat (%): [90 %-100 %] 93 % Physical Exam Gen: Sleeping after anesthesia, wakes easily Eyes:EOMI, no icterus ENT:MMM, trachea midline Resp: Decreased but coarse breath sounds in L lung field, normal respiratory effort Cardio: RRR, normal S1, S2, no M/R/G. No KVNG. GI:S/NT/ND Skin:No jaundice or rash Neuro: No focal deficits Psych:Ox3, appropriate affect and cognition Data Review WBC/Hgb/Hct/Plts: 9.23/8.2/26.8/186, 188 (02/18 530) Na/K+/Phos/Mg/Ca: 136/4.2/2.7/1.7/-- (02/18 537) Bun/Creat/Cl/CO2/Glucose: 16/4.82/98/25/84 (02/18 537) Ptt/Pt/Inr: 80.4/16.7/1.4 (02/18 0559-02/18 0932) Dialysis Note: Patient seen on hemodialysis. Chart and flowsheet reviewed. Tolerating procedure well. Patient denies CP. SOB. And and N/V/D. Indication of Dialysis: ESRD Ix: Clearance and Volume UF (kg): 2L K (meq): 3mEq Filter: Optiflux BFR (ml/min): 400 DFR (ml/min): 800 Access: Rt TDC ESRD - On HHD 4 times a week 3 hours dry weight 75.5 kg -HD today and continue TTS schedule -check weight daily and after each dialysis treatment -check chem 6 daily while admitted -keep strict Is and Os -give nephrocaps/nephronex daily -low Na, low K, low phos, high protein diet. 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 Thank you, Kelby Elizondo APRN-[facility] Nephrology Pager #[phone] Physical Examination: Constitutional: no acute distress, appears comfortable Chest: normal respiratory effort; on room air Abdominal: non-distended Extremities: well perfused, trace bilateral lower extremity edema Skin: no rash Wt Readings from Last 3 Encounters: 02/17/25 78.9 kg (173 lb 15.1 oz) 12/18/24 79.2 kg (174 lb 8 oz) 10/22/24 78.9 kg (174 lb) Temp Readings from Last 3 Encounters: 02/17/25 98.3 F (36.8 C) (Oral) 12/19/24 97.7 F (36.5 C) (Oral) 04/02/24 98.1 F (36.7 C) (Oral) BP Readings from Last 3 Encounters: 02/17/25 108/54 12/19/24 115/55 10/22/24 122/48 Pulse Readings from Last 3 Encounters: 02/17/25 69 12/19/24 87 04/16/24 70 Lab Results Component Value Date CREATSERUM 5.28 (H) 02/17/2025 CREATSERUM 8.21 (H) 02/16/2025 CREATSERUM 7.08 (H) 02/15/2025 BUN 17 02/17/2025 BUN 29 (H) 02/16/2025 SODIUM 137 02/17/2025 POTASSIUM 4.1 02/17/2025 CHLORIDE 98 02/17/2025 CO2 27 02/17/2025 CALCIUM 8.0 (L) 02/14/2025 PHOSPHORUS 2.9 02/17/2025 ALBUMIN 3.4 (L) 02/14/2025 Lab Results Component Value Date PTH 283.6 (H) 02/04/2023 [id number] 40.3 09/03/2021 CALCIUM 8.0 (L) 02/14/2025 ICA 4.6 09/15/2021 PHOSPHORUS 2.9 02/17/2025 MAGNESIUM 1.7 02/17/2025 Lab Results Component Value Date WBC 8.48 02/17/2025 HGB 7.6 (L) 02/17/2025 HCT 24.0 (L) 02/17/2025 PLATELET 170 02/17/2025 MCV 108.6 (H) 02/17/2025 Lab Results Component Value Date PH 7.346 09/16/2021 PCO2 43.7 09/16/2021 PO2 51.4 09/16/2021 HCO3 23.4 09/16/2021 LACT 1.5 02/04/2023 [facility] Medicine Progress Note Patient: Christian Amador, : 1950, Impression / Plan Christian Amador is a 74 y.o. male with a PMH of ESRD on home dialysis, atrial fibrillation s/p AVN ablation and PPM, MRSA bacteremia on life long suppressive antibiotics, fungemia on chronic fluconazole, mechanical mitral valve, and MADRID cirrhosis of liver, presented to OSH with fatigue, transferred to [facility] for pleural fluid collection that was found to be chronic. Also found to have acute on chronic anemia in setting of hematochezia. Fatigue/weakness Hematochezia Acute blood loss anemia Pt has known external hemorrhoids. Hb back in Nov was 11, Hb 7.3 on admission and has remained stable. - No recent colonoscopies seen in our system - Blood consent completed - monitor H/H, type and screen --H/H has remained stable - GI consulted-- -s/p EGD and colonoscopy -Area of stenosis and possible ischemia unable to pass in colonoscopy -Ulceration noted -Continue IV PPI until GI update -Resume regular diet per report recs -Follow up recs regarding colonoscopy findings -check folate/B12 today given macrocytosis Chronic pleural effusion Effusion is chronic as it was present at least [address] Chest, noted on CT Chest in January 2023 on L side. Pleural fluid was exudative at that time with no evidence of malignant cells on cytology. Thought secondary to PNA, completed tx with ceftriaxone x2 weeks and had chest tube placed for drainage. Although he has cough, he has not had fever and is on RA, breathing comfortably so holding off on antibiotics for now. - Thoracic consulted-- not a candidate for VATS - Pulm consulted-- did not recommend Chest tube- should re establish with pulm outpatient - Holding off on antibiotics for now -Check LRCX and RVP. Unable to get legionella/step Ag due to being anuric. -metapneumovirus positive- supportive care. Likely accounts for some of his fatigue/weakness. Metapneumovirus infection -supportive care, isolation Mechanical MV INR goal 2.5-3.5, INR 1.7 on admission. On warfarin at home with regimen of 2mg M-F, 1mg on Sat and Sun. - Resuming warfarin today, monitor INR - heparin gtt to bridge until therapeutic - if Hb stabilizes can consider dc with lovenox bridge sooner ESRD on home dialysis Pt reports he does HD at home 4x weekly. - Neph consulted - Midodrine with HD - Do not have his home phos binder on formulary, starting Phoslo while amditted - Continue cinacalcet Atrial fibrillation s/p AVN ablation PPM - on AC as above. Holding for colonoscopy MRSA bacteremia on life long suppressive antibiotics - Continue home doxy History of fungemia on chronic fluconazole - Continue home fluconazole MADRID cirrhosis of liver MELD 26 - Continue lactulose - No evidence of ascites on exam - Dec HCC screening negative Complexity Hypocalcemia - Continue to monitor and replete. Hypothyroidism - Continue thyroid replacement. Medical Readiness For Discharge: Anticipated in 2-4 Days DVT prophylaxis with currently on heparin gtt Anticipated Disposition: home Code status is Full Code Interval History / Subjective No acute events overnight, updated pt and his on plans Objective Temp: [97.2 F (36.2 C)-98.6 F (37 C)] 98.1 F (36.7 C) Pulse (Heart Rate): [69-71] 69 Resp Rate: [16-26] 18 BP: (89-113)/(43-54) 113/53 O2 Sat (%): [90 %-99 %] 91 % Weight: [78.9 kg (173 lb 15.1 oz)] 78.9 kg (173 lb 15.1 oz) Physical Exam Gen: Sleeping after anesthesia, wakes easily Eyes:EOMI, no icterus ENT:MMM, trachea midline Resp: Decreased but coarse breath sounds in L lung field, normal respiratory effort Cardio: RRR, normal S1, S2, no M/R/G. No KVNG. GI:S/NT/ND Skin:No jaundice or rash Neuro: No focal deficits Psych:Ox3, appropriate affect and cognition Data Review WBC/Hgb/Hct/Plts: 8.48/7.6/24.0/170 (02/17 103) Na/K+/Phos/Mg/Ca: 137/4.1/2.9/1.7/-- (02/17 103) Bun/Creat/Cl/CO2/Glucose: 17/5.28/98/27/99 (02/17 103) Ptt/Pt/Inr: 109.2/--/-- (02/17 132) Care Management Progress Note Plan of Care- Treatment Updates: Hepatology signed off, GI and nephrology following. Patient had EGD and colonoscopy yesterday 02/16. Monitoring Hb level. Patient currently on heparin drip. Therapeutic INR for patient would be 2.5-3.5. If patient discharges prior to therapeutic INR, will need lovenox bridge to warfarin. Discharge updates: Patient to discharge home with spouse. Patient to resume home HD. Spouse to provide transportation. ELAYNE Guzman Clinical Trials Nurse [phone] Available on secure chat. NEPHROLOGY INPATIENT FOLLOW UP NOTE Reason for Consultation: ESRD Referring Provider: Key Rizo MD Hospital Day: 3 SUBJECTIVE Seen during dialysis doing well talked earlier to his also denies cp or sob no nausea or vommiting had echocardiogram earlier OBJECTIVE Vitals: BP 93/52 Pulse 69 Temp 97.9 F (36.6 C) (Oral) Resp (!) 25 Ht 1.702 m (5' 7) Wt 78.9 kg (174 lb) SpO2 94% BMI 27.25 kg/m Smoking Status Never I/O last 3 completed shifts: In: 550 [P.O.:200; I.V.:350] Out: - Scheduled Medications ALPRAZolam 1 mg Oral QHS [Held by provider] calcium acetate - Phos Binder 667 mg Oral TID w/meals cefTRIAXone 1 g Intravenous Q24H Cinacalcet 30 mg Oral Once per day on Sunday Cyclobenzaprine 10 mg Oral Q12H dialysate Dialysis Once in dialysis Doxycycline monohydrate 100 mg Oral Q12H Fluconazole 200 mg Oral QHS Lactulose 10 g Oral BID Levothyroxine 75 mcg Oral Before BKF Midodrine HCl 10 mg Oral Once per day on Sunday Pantoprazole 40 mg Intravenous BID vitamin C/B complex/folic acid (VIRT-CAPS) 1 capsule Oral Daily [Held by provider] warfarin 2 mg Oral Once per day on Sunday And [Held by provider] Warfarin 1 mg Oral Once per day on Sunday Physical Examination: Constitutional: no acute distress Chest: ctab, no wheezing Cardiovascular: rrr, no murmurs Abdominal: non-distended, +bowel sounds Extremities: well perfused, trace le edema Dialysis acess rt TDC Relevant Data: Lab Results Component Value Date SODIUM 137 02/16/2025 POTASSIUM 4.7 02/16/2025 CHLORIDE 97 (L) 02/16/2025 CO2 22 02/16/2025 BUN 29 (H) 02/16/2025 CREATSERUM 8.21 (H) 02/16/2025 GLUCOSE 84 02/16/2025 Lab Results Component Value Date WBC 16.30 (H) 02/16/2025 HGB 7.8 (L) 02/16/2025 HCT 25.8 (L) 02/16/2025 PLATELET 181 02/16/2025 MCV 110.3 (H) 02/16/2025 Lab Results Component Value Date PTH 283.6 (H) 02/04/2023 CALCIUM 8.0 (L) 02/14/2025 PHOSPHORUS 2.1 (L) 02/14/2025 ASSESSMENT AND PLAN: 74 yr old male with history of htn ,esrd on home hd ,history of AVR,afib,lymphoma admitted with progressive sob ,weakness found to have left pleural effusion Problem list: ESRD Left pleural effusion Recommendations: On HHD 4 times a week 3 hours dry weight 75.5 kg will dialyse today for 3 hours try 2 litres uf using 3 k bath will dialyse again in am Anemia transfuse if HB drops below 7 check iron studies if replete start aranesp 40 micrograms weekly BMD po4 low encourage to eat dairy products start calcitriol 0.25 micrograms with dialysis as calcium low too Rectal bleed gi following Thank you for allowing us to participate in the care of this patient. Please page with questions or concerns. MARIA EUGENIA LANDRY M.D,ALEJANDRO Attending Nephrology page [phone] Hospital Medicine Progress Note Patient: Christian Amador, : 1950, Impression / Plan Christian Amador is a 74 y.o. male with a PMH of ESRD on home dialysis, atrial fibrillation s/p AVN ablation and PPM, MRSA bacteremia on life long suppressive antibiotics, fungemia on chronic fluconazole, mechanical mitral valve, and MADRID cirrhosis of liver, presented to OSH with fatigue, transferred to [facility] for pleural fluid collection that was found to be chronic. Also found to have acute on chronic anemia in setting of hematochezia. Fatigue/weakness Hematochezia Acute blood loss anemia Pt has known external hemorrhoids. Hb back in Nov was 11, Hb 7.3 on admission and has remained stable. - No recent colonoscopies seen in our system - Blood consent completed - monitor H/H, type and screen --H/H has remained stable - GI consulted-- -s/p EGD and colonoscopy -Area of stenosis and possible ischemia unable to pass in colonoscopy -Ulceration noted -Continue IV PPI until GI update -Resume regular diet per report recs -Follow up recs regarding colonoscopy findings -check folate/B12 today given macrocytosis Chronic pleural effusion Effusion is chronic as it was present at least [address] Chest, noted on CT Chest in January 2023 on L side. Pleural fluid was exudative at that time with no evidence of malignant cells on cytology. Thought secondary to PNA, completed tx with ceftriaxone x2 weeks and had chest tube placed for drainage. Although he has cough, he has not had fever and is on RA, breathing comfortably so holding off on antibiotics for now. - Thoracic consulted-- not a candidate for VATS - Pulm consulted-- did not recommend Chest tube- should re establish with pulm outpatient - Holding off on antibiotics for now -Check LRCX and RVP. Unable to get legionella/step Ag due to being anuric. -metapneumovirus positive- supportive care. Likely accounts for some of his fatigue/weakness. Metapneumovirus infection -supportive care, isolation Mechanical MV INR goal 2.5-3.5, INR 1.7 on admission. On warfarin at home with regimen of 2mg M-F, 1mg on Sat and Sun. - holding warfarin - heparin gtt to bridge until therapeutic ESRD on home dialysis Pt reports he does HD at home 4x weekly. - Neph consulted - Midodrine with HD - Do not have his home phos binder on formulary, starting Phoslo while amditted - Continue cinacalcet Atrial fibrillation s/p AVN ablation PPM - on AC as above. Holding for colonoscopy MRSA bacteremia on life long suppressive antibiotics - Continue home doxy History of fungemia on chronic fluconazole - Continue home fluconazole MADRID cirrhosis of liver MELD 26 - Continue lactulose - No evidence of ascites on exam - Dec HCC screening negative Complexity Hypocalcemia - Continue to monitor and replete. Hypophosphatemia - Continue to monitor and replete. Medical Readiness For Discharge: Anticipated in 2-4 Days DVT prophylaxis with currently on heparin gtt Anticipated Disposition: home Code status is Full Code Interval History / Subjective Seen after colonoscopy, sleeping, discussed updates with his Objective Temp: [97.3 F (36.3 C)-98.5 F (36.9 C)] 97.9 F (36.6 C) Pulse (Heart Rate): [69-81] 73 Resp Rate: [16-31] 31 BP: (89-115)/(51-55) 89/53 O2 Sat (%): [91 %-100 %] 92 % Weight: [78.9 kg (174 lb)] 78.9 kg (174 lb) Physical Exam Gen: Sleeping after anesthesia, wakes easily Eyes:EOMI, no icterus ENT:MMM, trachea midline Resp: Decreased but coarse breath sounds in L lung field, normal respiratory effort Cardio: RRR, normal S1, S2, no M/R/G. No KVNG. GI:S/NT/ND Skin:No jaundice or rash Neuro: No focal deficits Psych:Ox3, appropriate affect and cognition Data Review WBC/Hgb/Hct/Plts: 16.30/7.8/25.8/181 (02/16 431) Na/K+/Phos/Mg/Ca: 137/4.7/--/--/-- (02/16 431) Bun/Creat/Cl/CO2/Glucose: 29/8.21/97/22/84 (02/16 431) Ptt/Pt/Inr: 46.0/17.9/1.5 (02/16 431) Department of Pharmacy Renal Documentation Note Patient: Christian Amador Room/Bed: [facility]/A Patient is on Intermittent Hemodialysis Phosphorus Binder Management The patient is currently prescribed Phoslo 667 TID. The patient s most recent phosphorus levels include: Lab Results Component Value Date/Time Phosphorous 2.1 (L) 02/14/2025 0026 Phosphorous 2.9 02/13/2025 1150 Based on this/these value(s) I have made the following changes: Held Phoslo. I have modified the orders in [facility] to reflect the above plan. Please feel free to contact me with any further questions. Name: Castro Lerner RPH Date/Time: 02/16/2025 6:45 AM Department of Pharmacy Renal Documentation Note Patient: Christian Amador Room/Bed: 1191/A Patient is on Intermittent Hemodialysis Nephrocap Addition Because this patient is on hemodialysis, I have added a daily nephrocap to the orders in IHIS. Please feel free to contact me with any further questions. Name: Castro Lerner RPH Date/Time: 02/16/2025 6:44 AM Hospital Medicine Progress Note Patient: Christian Amador, : 1950, Impression / Plan Christian Amador is a 74 y.o. male with a PMH of ESRD on home dialysis, atrial fibrillation s/p AVN ablation and PPM, MRSA bacteremia on life long suppressive antibiotics, fungemia on chronic fluconazole, mechanical mitral valve, and MADRID cirrhosis of liver, presented to OSH with fatigue, transferred to [facility] for pleural fluid collection that was found to be chronic. Also found to have acute on chronic anemia in setting of hematochezia. Fatigue/weakness Hematochezia Acute blood loss anemia Pt has known external hemorrhoids. Hb back in Nov was 11, Hb 7.3 on admission and has remained stable. - No recent colonoscopies seen in our system - Blood consent completed - monitor H/H, type and screen --H/H has remained stable - GI consulted-- planning for EGD and colonoscopy on Sunday. Will prep tonight. -PPI BID, ceftriaxone ppx, -hold heparin at midnight -check folate/B12 today given macrocytosis Chronic pleural effusion Effusion is chronic as it was present at least [address] Chest, noted on CT Chest in January 2023 on L side. Pleural fluid was exudative at that time with no evidence of malignant cells on cytology. Thought secondary to PNA, completed tx with ceftriaxone x2 weeks and had chest tube placed for drainage. Although he has cough, he has not had fever and is on RA, breathing comfortably so holding off on antibiotics for now. - Thoracic consulted-- not a candidate for VATS - Pulm consulted-- did not recommend Chest tube - Holding off on antibiotics for now -Check LRCX and RVP. Unable to get legionella/step Ag due to being anuric. -metapneumovirus positive- supportive care. Likely accounts for some of his fatigue/weakness. Metapneumovirus infection -supportive care, isolation Mechanical MV INR goal 2.5-3.5, INR 1.7 on admission. On warfarin at home with regimen of 2mg M-F, 1mg on Sat and Sun. - holding warfarin - heparin gtt to bridge until therapeutic ESRD on home dialysis Pt reports he does HD at home 4x weekly. - Neph consulted - Midodrine with HD - Do not have his home phos binder on formulary, starting Phoslo while amditted - Continue cinacalcet Atrial fibrillation s/p AVN ablation PPM - on AC as above. Holding for colonoscopy MRSA bacteremia on life long suppressive antibiotics - Continue home doxy History of fungemia on chronic fluconazole - Continue home fluconazole MADRID cirrhosis of liver MELD 26 - Continue lactulose - No evidence of ascites on exam - Dec HCC screening negative Complexity Hypokalemia - Continue to monitor and replete. Hypocalcemia - Continue to monitor and replete. Hypophosphatemia - Continue to monitor and replete. Hypothyroidism - Continue thyroid replacement. Medical Readiness For Discharge: Anticipated in 2-4 Days DVT prophylaxis with currently on heparin gtt Anticipated Disposition: home Code status is Full Code Interval History / Subjective No significant events overnight. No new concerns. Planning for colonoscopy tomorrow. Objective Temp: [97.3 F (36.3 C)-99.7 F (37.6 C)] 97.4 F (36.3 C) Pulse (Heart Rate): [69-83] 70 Resp Rate: [16-18] 16 BP: (104-117)/(51-58) 107/54 O2 Sat (%): [91 %-98 %] 96 % Physical Exam Gen:Alert, Awake, NAD Eyes:EOMI, no icterus ENT:MMM, trachea midline Resp: Decreased but coarse breath sounds in L lung field, normal respiratory effort Cardio: RRR, normal S1, S2, no M/R/G. No KVNG. GI:S/NT/ND Skin:No jaundice or rash Neuro: No focal deficits Psych:Ox3, appropriate affect and cognition Data Review WBC/Hgb/Hct/Plts: 8.41/7.6/25.0/158 (02/15 447) Na/K+/Phos/Mg/Ca: 138/3.4/--/--/-- (02/15 447) Bun/Creat/Cl/CO2/Glucose: 24/7.08/99/26/93 (02/15 447) Ptt/Pt/Inr: 93.3/19.2/1.6 (02/15 447) Discharge Planning Assessment Is the patient able to participate in the assessment?: Yes Care Management Plan Completion of AVS and discharge documentation Arrangement of outpatient follow up Initial Discharge Planning Expected Discharge Disposition: Home Transportation Available for Discharge: Private Vehicle, Family or Friend () Anticipated DME: none Anticipated Services at Discharge: Outpatient follow up Patient Assessment Completed: Initial Legal Next of Kin Does the patient have a Guardian?: No Spouse: Yes Name and Contact information: Anna Amador, /HCPOA per patient report, Adult Child(jane), List All Adult Children: Yes Name and Contact information: Sean Amador, son [phone]. Anna noted he lives about 30 min from them Reviewed and Updated in Demographics? : Yes Advanced Care Planning Medication Management Does the patient have prescription insurance coverage? : Yes (medicare, AARP) Is the patient on Anticoagulation? : No [facility] [address] [place] [phone] - [address] [facility] [phone] Living Environment and Support System Is the patient from a facility or snf?: No Living Environment: Condominium (ranch condo with finished basement) Patient Caregiving Responsibilities: Self Patient-identified caregiver/support network: Family Who does the patient identify as a teachable caregiver(s)?: Spouse or Partner, Child(jane) - Independent Services Does the patient use a home health or hospice agency?: No Current with dialysis?: Yes (home dialysis 4 days a week) Does the patient use any community programs or services?: No Does patient use DME? : rollator, straight cane, wheelchair, grab bars, elevated toilet seat Does the patient use oxygen?: No Does patient use medical supplies? : none Anticipated Changes Related to Illness/Injury? : No Initial ADLs Prior to Arrival What is the patient's baseline physical functioning prior to this acute illness?: assist with ADLs What is the patient's baseline cognitive functioning prior to this acute illness?: independent Is the patient's baseline functioning changed by this acute illness? : No Concerns with patient being able to care for themselves at home? 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 : No Patient is a 74 yo male admitted for hematochezia as well as concern for empyema at [facility] (which patient does not have). Care plan includes GI, pulmonary and thoracic surgery consults. Planning for EGD and colonoscopy tomorrow. Patient on IV ATB for concern for pneumonia. Patient has multiple chronic medical problems. He is on home dialysis. 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 She is extremely supportive. Patient reports that he lives in [place] with his and will return home at discharge. Patient does use some DME at home but no HHC. Patient and family deny any active SDOH concerns. Anna noted that the ambulance company made her pay $1400 before they would transport the patient to [facility] from the [facility] on Sunday since he was not going to the next closest hospital. She states that she has never been charged like this before and patient has been transferred her other times previously. I encouraged her to call the ambulance company, as I also have never heard of a patient being charged up front to be transported to a higher level of care hospital. Anna also noted that if patient needs outpatient PT at discharge, they have a favorite place to go outpatient. She states that patient has been SOB lately when walking to the bathroom and although his pulse ox is always in the mid 90s, she may pursue self-pay home oxygen for a little while after discharge to see if that helps the patient. She states that Dr Ferrara gave her a prescription already so she may try to make those arrangements after discharge. Please consult case management if discharge planning needs arise. At the time of this assessment, patient and spouse plan to return home at discharge without HHC. Spouse noted that her car is in the shop and ready to be picked up tomorrow 02/16 so she will be away from the hospital for a bit. Deborah ARCE CM Pt called out stating arm was bleeding. Rt arm bleeding from small pinpoint area from old IV start attempt. Pressure held 20minutes then pressure dressing applied. No bleeding at this time noted. Circ checks WNL to rt arm. Heparin gtt infusing with no problem. Pt at bedside. 0115: no bleeding from Rt arm site. Pt resting easy. Heparin gtt continues Hospital Medicine Progress Note Patient: Christian Amador, : 1950, Impression / Plan Christian Amador is a 74 y.o. male with a PMH of ESRD on home dialysis, atrial fibrillation s/p AVN ablation and PPM, MRSA bacteremia on life long suppressive antibiotics, fungemia on chronic fluconazole, mechanical mitral valve, and MADRID cirrhosis of liver, presented to OSH with fatigue, transferred to [facility] for pleural fluid collection that was found to be chronic. Also found to have acute on chronic anemia in setting of hematochezia. Fatigue/weakness Hematochezia Acute blood loss anemia Pt has known external hemorrhoids. Hb back in Nov was 11, Hb 7.3 on admission and has remained stable. - No recent colonoscopies seen in our system - Blood consent completed - monitor H/H, type and screen - GI consult today -check folate/B12 today given macrocytosis Chronic pleural effusion Effusion is chronic as it was present at least [address] Chest, noted on CT Chest in January 2023 on L side. Pleural fluid was exudative at that time with no evidence of malignant cells on cytology. Thought secondary to PNA, completed tx with ceftriaxone x2 weeks and had chest tube placed for drainage. Although he has cough, he has not had fever and is on RA, breathing comfortably so holding off on antibiotics for now. - Thoracic consulted-- not a candidate for VATS - Pulm consulted-- did not recommend Chest tube - Holding off on antibiotics for now -Check LRCX and RVP. Unable to get legionella/step Ag due to being anuric. Mechanical MV INR goal 2.5-3.5, INR 1.7 on admission. On warfarin at home with regimen of 2mg M-F, 1mg on Sat and Sun. - Continue warfarin - heparin gtt to bridge until therapeutic ESRD on home dialysis Pt reports he does HD at home 4x weekly. - Neph consulted - Midodrine with HD - Do not have his home phos binder on formulary, starting Phoslo while amditted - Continue cinacalcet Atrial fibrillation s/p AVN ablation PPM - on AC as above MRSA bacteremia on life long suppressive antibiotics - Continue home doxy History of fungemia on chronic fluconazole - Continue home fluconazole MADRID cirrhosis of liver MELD 26 - Continue lactulose - No evidence of ascites on exam - Dec HCC screening negative Complexity Hypocalcemia - Continue to monitor and replete. Hypophosphatemia - Continue to monitor and replete. Hypothyroidism - Continue thyroid replacement. Medical Readiness For Discharge: DVT prophylaxis with currently on heparin gtt Anticipated Disposition: home Code status is Full Code Interval History / Subjective No significant events overnight. No new concerns. Did not notice any hematochezia this morning. No hematemesis. Stool is always dark due to iron supplements. Objective Temp: [97.3 F (36.3 C)-98.7 F (37.1 C)] 98.1 F (36.7 C) Pulse (Heart Rate): [69-81] 81 Resp Rate: [16-30] 18 BP: (93-115)/(50-83) 107/53 O2 Sat (%): [92 %-100 %] 98 % Weight: [78.9 kg (174 lb)] 78.9 kg (174 lb) Physical Exam Gen:Alert, Awake, NAD Eyes:EOMI, no icterus ENT:MMM, trachea midline Resp: Decreased but coarse breath sounds in L lung field, normal respiratory effort Cardio: RRR, normal S1, S2, no M/R/G. No KVNG. GI:S/NT/ND Skin:No jaundice or rash Neuro: No focal deficits Psych:Ox3, appropriate affect and cognition Data Review WBC/Hgb/Hct/Plts: 8.48/7.4/24.3/157 (02/14 26) Na/K+/Phos/Mg/Ca: 136/3.6/2.1/1.7/8.0 (02/14 26) Bun/Creat/Cl/CO2/Glucose: 13/4.06/98/26/100 (02/14 26) Ptt/Pt/Inr: 98.3/19.5/1.7 (02/14 26-02/14 701) Pt noted to have facial twitching at times. Pt verifies jerking movements were to arms and legs earlier and now just face. Pt denies any distress. Dr Serrano notified. 0026: labs sent at this time with PTT. Pt twitching a little less noticeable but continues. Pt denies distress.. NNO 0241: Pt resting easy. No jerking or twitching noted in sleep. Tele and cpox wnl at rest. Department of Pharmacy Renal Documentation Note Patient: Christian Amador Room/Bed: 1191/A Assessment and Plan: The patient is currently maintained on intermittent hemodialysis. The current medication profile was reviewed for appropriate dosing and timing and any contraindications to prescribed therapies. No adjustments to medication therapy are necessary at this time. A pharmacist will continue to follow patient and recommend drug levels and dose changes as clinically appropriate. Would recommend adding on neprocap (home med for patient). Please contact with any questions, Name: Omid Bonilla RPh,[place]akesha Phone: [phone] Date/Time: 02/13/2025 5:19 PM documented in this encounter [facility] 03-06-2025 Hospital course Narrative Images from the original note were not included. Hospital Medicine Discharge Summary Patient Name Christian Amador Age (Date of ) 75 y.o. (1950) Admit Date 02/13/2025 Discharge Date 03/06/2025 Inpatient Days 21 Primary Diagnoses Subtherapeutic INR with mechanical aortic valve and MV annuloplasty Acute blood loss anemia due to rectal bleeding, stenosis and ulceration of sigmoid colon; chronic anemia of CKD Metapneumovirus infection Chronic pleural effusion Positive blood culture Action Items Follow up with PCP for routine care Continue warfarin 2mg/d and INR check 03/09/25 Cont home HD; f/up with local neph re: aranesp Follow up with local GI Follow up with [facility]ology Follow up with [facility] hepatology Dear Doctors, I recently had the opportunity to care for Christian Amador during his recent hospital stay at [facility]. As you may know, Christian Amador is a 75 y.o. 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 The below details his hospital course. All problems present on admission unless otherwise noted. Patient presented with fatigue and cough and rectal bleeding over the last week. PCP ordered Chest x-ray and saw what seemed to be a large pleural effusion so was recommended to present for further care. CT chest at outside hospital showed moderate size left pleural effusion compatible with empyema. They did not do thoracentesis or chest tube. CT angio abdomen pelvis was obtained due to GI bleeding without acute GI bleed. He was transferred to [facility] for further care. Notably, patient's pleural effusion is chronic and stable compared to CT chest in January of 2023. Pleural fluid at that time was exudative without evidence of malignancy on cytology. Thoracic surgery was consulted this admission and he was not a candidate for VATS. Given he was positive for metapneumovirus, this was thought to be the triggering etiology for his symptoms as opposed to the pleural effusion and he will follow up with pulmonology as an outpatient. For his acute on chronic anemia, he underwent EGD and colonoscopy - former showed portal hypertensive gastropathy, latter showed area of stenosis and possible ischemia in the sigmoid, and unable to pass the camera past the stenosis. Pathology with extensive mucosal and submucosal necrosis, negative for malignancy or CMV. Overall suspected related to colonic ischemia. His hemoglobin remained stable and he will follow up with his local GI provider given his colonoscopy results. He will also follow up with [facility] hepatology given his MADRID cirrhosis. Neph continued his dialysis while he was admitted. There was concern about infection involving his tunneled line, so blood culture obtained per neph request from his line on which grew VITO. Subsequent repeat culture was negative. ID thought contaminant. He will follow up with his local salesperson [employer] glass[employer] for consideration for starting Aranesp versus alternative agent and his phos binder was resumed on discharge. Finally, patient had a subtherapeutic INR on admission with his goal INR of 2.5-3.5 with his mechanical AV (+Afib, recognizing goal without this would be 2-3). He was ultimately bridged with heparin to Coumadin (required a few boosts of dosing for warfarin before got to goal); given overall trend, he will discharge on 2mg daily (from 2mg M-F and 1mg Sat + Sun), with repeat INR on 03/09/25. He will follow up with his local teradata solution architect for continued care. Upon discharge the patient's code was Full Code Please see the remainder of this document for relevant data from this admission as well as the patient's discharge instructions and follow-up appointments.. An electronic copy of the patient's records can be obtained via [facility] at [email or web address] It has been my pleasure participating in this patient's care. Please contact me with any questions or concerns regarding his hospital stay. The total time of discharge was 60 minutes. Sincerely, Hoda Moore MD Division of Hospital Medicine This note was formatted using dictation software. Please excuse spelling or grammatical errors. For patients -- this note is intended for communication between physicians and other members of your medical team and may contain words and language that are unfamiliar. Relevant Data from this Admission Vitals BP: 91/52 Pulse (Heart Rate): 72 Resp Rate: 18 Temp: 97.7 F (36.5 C) O2 Sat (%): 99 % Weight: 78.9 kg (173 lb 15.1 oz) Physical Exam on Discharge Gen: laying in bed, no acute distress Resp: lungs clear to auscultation bilaterally, normal work of breathing; TDC in R chest CV: RRR, soft systolic murmur, normal S1 and S2, No KVNG Abd: soft, nondistended, +BS Psych: appropriate affect and cognition Recent Labs 03/05/25 0416 03/06/25 0458 WBC 10.65* -- HGB 10.6* -- PLATELET 303 -- SODIUM 139 -- POTASSIUM 5.1* -- CO2 25 -- ANIONGAP 19* -- BUN 26* -- CREATSERUM 5.35* -- MAGNESIUM 2.0 -- PHOSPHORUS 4.9* -- INR 2.8* 3.2* PTT 86.9* -- The patient has Malnutrition Severity: none. I reviewed and agreed with the Nutrition plan outlined in the Dietitian s note. Patient Instructions on Discharge Future Appointments Date Time Provider Department Center 03/24/2025 2:30 PM Wm Nicholas MD [facility] 04/15/2025 4:00 PM Vaishnavi Fry, CPNGAS [facility] Other [facility] [address] [facility] [id number] Follow up Follow up with your Home Hemo RN upon discharge Medication List for when you go home START taking these medications Morning Afternoon Evening Bedtime As Needed Sucroferric Oxyhydroxide 500 MG CHEW Chew 1,000 mg 3 times daily with meals. 1,000 mg 1,000 mg 1,000 mg CONTINUE taking these medications Morning Afternoon Evening Bedtime As Needed ALPRAZolam 1 MG TABS Take 1 tablet by mouth at bedtime. Commonly known as: XANAX Last time this was given: 1 mg on March 05, 2025 9:23 PM 1 tablet Cyclobenzaprine 10 MG TABS Take 1 tablet by mouth 2 times daily. Commonly known as: FLEXERIL Last time this was given: 10 mg on March 06, 2025 8:09 AM 1 tablet 1 tablet doxycycline hyclate 100 MG CAPS Take 1 capsule by mouth 2 times daily. Commonly known as: VIBRAMYCIN Last time this was given: Ask your nurse or doctor 1 capsule 1 capsule Fluconazole 200 MG TABS Take 1 tablet by mouth daily. Commonly known as: DIFLUCAN Last time this was given: 200 mg on March 05, 2025 9:23 PM 1 tablet Lactulose 10 GM/15ML SOLN oral solution Take 15 mL by mouth 2 times daily. Commonly known as: CHRONULAC Last time this was given: 10 g on March 06, 2025 8:10 AM 15 mL 15 mL Levothyroxine 75 MCG TABS Take 1 tablet by mouth every morning before breakfast. Commonly known as: SYNTHROID Last time this was given: 75 mcg on March 06, 2025 5:58 AM 1 tablet Midodrine HCl 10 MG TABS Take 1 tablet by mouth. 1 Tablet Sunday, Sunday, Sunday 2 Tablets Sun And Sun Last time this was given: 10 mg on March 06, 2025 8:09 AM Take 1 tablet by mouth. 1 Tablet Sunday, Sunday, Sunday 2 Tablets Sun And Sun NEPHRO-BALTAZAR PO Take 1 tablet by mouth at bedtime. Last time this was given: Ask your nurse or doctor 1 tablet Pantoprazole [address] tablet DR Take 1 tablet by mouth daily. Commonly known as: PROTONIX Last time this was given: 40 mg on March 06, 2025 8:09 AM 1 tablet Sensipar 30 MG TABS Take 1 tablet by mouth 3 times weekly. Last time this was given: 30 mg on March 05, 2025 8:09 AM Generic drug: Cinacalcet Take 1 tablet by mouth 3 times weekly. TYLENOL PO Take by mouth. Take by mouth. warfarin 2 MG tablet Take 1 tablet by mouth every evening at 6 PM. Commonly known as: COUMADIN Last time this was given: 2 mg on March 05, 2025 5:59 PM 1 tablet STOP taking these medications rifAXIMin 550 MG TABS Commonly known as: XIFAXAN documented in this encounter [facility] 03-06-2025 Hospital course Narrative Images from the original note were not included. Hospital Medicine Discharge Summary Patient Name Christian Amador Age (Date of ) 75 y.o. (1950) Admit Date 02/13/2025 Discharge Date 03/06/2025 Inpatient Days 21 Primary Diagnoses Subtherapeutic INR with mechanical aortic valve and MV annuloplasty Acute blood loss anemia due to rectal bleeding, stenosis and ulceration of sigmoid colon; chronic anemia of CKD Metapneumovirus infection Chronic pleural effusion Positive blood culture Action Items Follow up with PCP for routine care Continue warfarin 2mg/d and INR check 03/09/25 Cont home HD; f/up with local neph re: aranesp Follow up with local GI Follow up with [facility] Follow up with [facility] Dear Doctors, I recently had the opportunity to care for Christian Amador during his recent hospital stay at [facility]. As you may know, Christian Amador is a 75 y.o. 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 The below details his hospital course. All problems present on admission unless otherwise noted. Patient presented with fatigue and cough and rectal bleeding over the last week. PCP ordered Chest x-ray and saw what seemed to be a large pleural effusion so was recommended to present for further care. CT chest at outside hospital showed moderate size left pleural effusion compatible with empyema. They did not do thoracentesis or chest tube. CT angio abdomen pelvis was obtained due to GI bleeding without acute GI bleed. He was transferred to [facility] for further care. Notably, patient's pleural effusion is chronic and stable compared to CT chest in January of 2023. Pleural fluid at that time was exudative without evidence of malignancy on cytology. Thoracic surgery was consulted this admission and he was not a candidate for VATS. Given he was positive for metapneumovirus, this was thought to be the triggering etiology for his symptoms as opposed to the pleural effusion and he will follow up with pulmonology as an outpatient. For his acute on chronic anemia, he underwent EGD and colonoscopy - former showed portal hypertensive gastropathy, latter showed area of stenosis and possible ischemia in the sigmoid, and unable to pass the camera past the stenosis. Pathology with extensive mucosal and submucosal necrosis, negative for malignancy or CMV. Overall suspected related to colonic ischemia. His hemoglobin remained stable and he will follow up with his local GI provider given his colonoscopy results. He will also follow up with [facility] hepatology given his MADRID cirrhosis. Neph continued his dialysis while he was admitted. There was concern about infection involving his tunneled line, so blood culture obtained per neph request from his line on which grew VITO. Subsequent repeat culture was negative. ID thought contaminant. He will follow up with his local salesperson [employer] for consideration for starting Aranesp versus alternative agent and his phos binder was resumed on discharge. Finally, patient had a subtherapeutic INR on admission with his goal INR of 2.5-3.5 with his mechanical AV (+Afib, recognizing goal without this would be 2-3). He was ultimately bridged with heparin to Coumadin (required a few boosts of dosing for warfarin before got to goal); given overall trend, he will discharge on 2mg daily (from 2mg M-F and 1mg Sat + Sun), with repeat INR on 03/09/25. He will follow up with his local teradata solution architect for continued care. Upon discharge the patient's code was Full Code Please see the remainder of this document for relevant data from this admission as well as the patient's discharge instructions and follow-up appointments.. An electronic copy of the patient's records can be obtained via [facility] at [email or web address] It has been my pleasure participating in this patient's care. Please contact me with any questions or concerns regarding his hospital stay. The total time of discharge was 60 minutes. Sincerely, Hoda Moore MD Division of Hospital Medicine This note was formatted using dictation software. Please excuse spelling or grammatical errors. For patients -- this note is intended for communication between physicians and other members of your medical team and may contain words and language that are unfamiliar. Relevant Data from this Admission Vitals BP: 91/52 Pulse (Heart Rate): 72 Resp Rate: 18 Temp: 97.7 F (36.5 C) O2 Sat (%): 99 % Weight: 78.9 kg (173 lb 15.1 oz) Physical Exam on Discharge Gen: laying in bed, no acute distress Resp: lungs clear to auscultation bilaterally, normal work of breathing; TDC in R chest CV: RRR, soft systolic murmur, normal S1 and S2, No KVNG Abd: soft, nondistended, +BS Psych: appropriate affect and cognition Recent Labs 03/05/25 0416 03/06/25 0458 WBC 10.65* -- HGB 10.6* -- PLATELET 303 -- SODIUM 139 -- POTASSIUM 5.1* -- CO2 25 -- ANIONGAP 19* -- BUN 26* -- CREATSERUM 5.35* -- MAGNESIUM 2.0 -- PHOSPHORUS 4.9* -- INR 2.8* 3.2* PTT 86.9* -- The patient has Malnutrition Severity: none. I reviewed and agreed with the Nutrition plan outlined in the Dietitian s note. Patient Instructions on Discharge Future Appointments Date Time Provider Department Center 03/24/2025 2:30 PM Wm Nicholas MD [facility] 04/15/2025 4:00 PM Vaishnavi Fry, CPNGAS [facility] Other [facility] [address] [facility] [address] Follow up Follow up with your Home Hemo RN upon discharge Medication List for when you go home START taking these medications Morning Afternoon Evening Bedtime As Needed Sucroferric Oxyhydroxide 500 MG CHEW Chew 1,000 mg 3 times daily with meals. 1,000 mg 1,000 mg 1,000 mg CONTINUE taking these medications Morning Afternoon Evening Bedtime As Needed ALPRAZolam 1 MG TABS Take 1 tablet by mouth at bedtime. Commonly known as: XANAX Last time this was given: 1 mg on March 05, 2025 9:23 PM 1 tablet Cyclobenzaprine 10 MG TABS Take 1 tablet by mouth 2 times daily. Commonly known as: FLEXERIL Last time this was given: 10 mg on March 06, 2025 8:09 AM 1 tablet 1 tablet doxycycline hyclate 100 MG CAPS Take 1 capsule by mouth 2 times daily. Commonly known as: VIBRAMYCIN Last time this was given: Ask your nurse or doctor 1 capsule 1 capsule Fluconazole 200 MG TABS Take 1 tablet by mouth daily. Commonly known as: DIFLUCAN Last time this was given: 200 mg on March 05, 2025 9:23 PM 1 tablet Lactulose 10 GM/15ML SOLN oral solution Take 15 mL by mouth 2 times daily. Commonly known as: CHRONULAC Last time this was given: 10 g on March 06, 2025 8:10 AM 15 mL 15 mL Levothyroxine 75 MCG TABS Take 1 tablet by mouth every morning before breakfast. Commonly known as: SYNTHROID Last time this was given: 75 mcg on March 06, 2025 5:58 AM 1 tablet Midodrine HCl 10 MG TABS Take 1 tablet by mouth. 1 Tablet Sunday, Sunday, Sunday 2 Tablets Sun And Sun Last time this was given: 10 mg on March 06, 2025 8:09 AM Take 1 tablet by mouth. 1 Tablet Sunday, Sunday, Sunday 2 Tablets Sun And Sun NEPHRO-BALTAZAR PO Take 1 tablet by mouth at bedtime. Last time this was given: Ask your nurse or doctor 1 tablet Pantoprazole [address] tablet DR Take 1 tablet by mouth daily. Commonly known as: PROTONIX Last time this was given: 40 mg on March 06, 2025 8:09 AM 1 tablet Sensipar 30 MG TABS Take 1 tablet by mouth 3 times weekly. Last time this was given: 30 mg on March 05, 2025 8:09 AM Generic drug: Cinacalcet Take 1 tablet by mouth 3 times weekly. TYLENOL PO Take by mouth. Take by mouth. warfarin 2 MG tablet Take 1 tablet by mouth every evening at 6 PM. Commonly known as: COUMADIN Last time this was given: 2 mg on March 05, 2025 5:59 PM 1 tablet STOP taking these medications rifAXIMin 550 MG TABS Commonly known as: XIFAXAN documented in this encounter [facility] 03-06-2025 Procedure note Associated Ord er(s): GENERAL PROCEDURE Dialysis Procedure Note Subjective/ events: Seen on HD. No new complaints . Vitals were stable. Dialysis Prescription Indication of HD: ESRD UF (kg): 1-2 kg, K (meq) bath: 3K BFR (ml/min): 400 DFR (ml/min): 800 Access: TDC Vitals Vitals: 03/05/25 2047 03/05/25 2351 03/06/25 0457 03/06/25 0719 BP: 127/54 114/52 104/48 98/50 Pulse: 79 70 76 83 Resp: 16 16 16 16 Temp: 97.1 degrees F (36.2 degrees C) 97.8 degrees F (36.6 degrees C) 98.2 degrees F (36.8 degrees C) 97.4 degrees F (36.3 degrees C) TempSrc: Oral Oral Oral Oral SpO2: 96% 98% 97% 93% Weight: Height: Wt Readings from Last 3 Encounters: 02/17/25 78.9 kg (173 lb 15.1 oz) 12/18/24 79.2 kg (174 lb 8 oz) 10/22/24 78.9 kg (174 lb) Intake/Output Summary (Last 24 hours) at 03/06/2025 1103 Last data filed at 03/06/2025 0600 Gross per 24 hour Intake 490 ml Output -- Net 490 ml Meds: ALPRAZolam 1 mg Oral QHS [Held by provider] calcium acetate - Phos Binder 667 mg Oral TID w/meals Cinacalcet 30 mg Oral Once per day on Sunday Cyclobenzaprine 10 mg Oral Q12H darbepoetin 60 mcg Subcutaneous Q7 days Doxycycline monohydrate 100 mg Oral Q12H Fluconazole 200 mg Oral QHS Lactulose 10 g Oral BID Levothyroxine 75 mcg Oral Before BKF Midodrine HCl 10 mg Oral Once per day on Sunday Pantoprazole 40 mg Oral BID vitamin C/B complex/folic acid (VIRT-CAPS) 1 capsule Oral Daily Warfarin 2 mg Oral Daily early evening Labs: Lab Results Component Value Date SODIUM 139 03/05/2025 POTASSIUM 5.1 (H) 03/05/2025 CHLORIDE 100 03/05/2025 CO2 25 03/05/2025 BUN 26 (H) 03/05/2025 CREATSERUM 5.35 (H) 03/05/2025 GLUCOSE 95 03/05/2025 Lab Results Component Value Date CALCIUM 9.4 03/05/2025 PHOSPHORUS 4.9 (H) 03/05/2025 Lab Results Component Value Date IRON 59 03/03/2025 FERRITIN 224.3 09/12/2021 Lab Results Component Value Date ALBUMIN 3.4 (L) 02/14/2025 ALBUMINALB 3.4 (L) 09/05/2021 Assessment : ESKD on HD Plan and recommendations: Patient is seen and examined during dialysis. Dialysis prescription reviewed and adjusted as needed. Access is functional. Patient tolerated treatment without issues. Alexander Stiles MD Division of Nephrology Pager: [phone] Associated Order(s): GENERAL PROCEDURE Dialysis Procedure Note Subjective/ events: Seen on HD. No new complaints . Vitals were stable. Dialysis Prescription Indication of HD: ESRD UF (kg): 1-2 K (meq) bath: 3K BFR (ml/min): 400 DFR (ml/min): 800 Access: TDC Vitals Vitals: 03/04/25 0300 03/04/25 0804 03/04/25 1030 03/04/25 1100 BP: 111/59 116/53 97/67 112/52 Pulse: 71 79 71 69 Resp: 20 20 (!) 28 24 Temp: 97.7 degrees F (36.5 degrees C) 98.3 degrees F (36.8 degrees C) 97.4 degrees F (36.3 degrees C) TempSrc: Oral Oral Oral SpO2: 100% 98% 100% 99% Weight: Height: Wt Readings from Last 3 Encounters: 02/17/25 78.9 kg (173 lb 15.1 oz) 12/18/24 79.2 kg (174 lb 8 oz) 10/22/24 78.9 kg (174 lb) Intake/Output Summary (Last 24 hours) at 03/04/2025 1143 Last data filed at 03/04/2025 0909 Gross per 24 hour Intake 1486.01 ml Output -- Net 1486.01 ml Meds: ALPRAZolam 1 mg Oral QHS [Held by provider] calcium acetate - Phos Binder 667 mg Oral TID w/meals Cinacalcet 30 mg Oral Once per day on Sunday Cyclobenzaprine 10 mg Oral Q12H darbepoetin 60 mcg Subcutaneous Q7 days [START ON 03/05/2025] dialysate Dialysis Once in dialysis Doxycycline monohydrate 100 mg Oral Q12H Fluconazole 200 mg Oral QHS Lactulose 10 g Oral BID Levothyroxine 75 mcg Oral Before BKF Midodrine HCl 10 mg Oral Once per day on Sunday Pantoprazole 40 mg Oral BID vitamin C/B complex/folic acid (VIRT-CAPS) 1 capsule Oral Daily Warfarin 3 mg Oral Daily early evening Labs: Lab Results Component Value Date SODIUM 135 03/03/2025 POTASSIUM 4.6 03/03/2025 CHLORIDE 97 (L) 03/03/2025 CO2 25 03/03/2025 BUN 24 03/03/2025 CREATSERUM 5.02 (H) 03/03/2025 GLUCOSE 89 03/03/2025 Lab Results Component Value Date CALCIUM 9.0 03/03/2025 PHOSPHORUS 4.5 03/03/2025 Lab Results Component Value Date IRON 59 03/03/2025 FERRITIN 224.3 09/12/2021 Lab Results Component Value Date ALBUMIN 3.4 (L) 02/14/2025 ALBUMINALB 3.4 (L) 09/05/2021 Assessment : ESKD on HD Plan and recommendations: Patient is seen and examined during dialysis. Dialysis prescription reviewed and adjusted as needed. Access is functional. Patient tolerated treatment without issues. Alexander Stiles MD Division of Nephrology Pager: [phone] Associated Order(s): GENERAL PROCEDURE Dialysis Procedure Note Subjective/ events: Seen on HD. No new complaints . Vitals were stable. Swab from exit site taken due to concern for infection Dialysis Prescription Indication of HD: ESRD UF (kg): 2-3 K (meq) bath: 3K BFR (ml/min): 400 DFR (ml/min): 800 Access: TDC Vitals Vitals: 02/27/25 2320 02/28/25 0249 02/28/25 0749 02/28/25 1155 BP: 109/54 112/75 124/59 109/52 Pulse: 71 79 76 76 Resp: 16 16 Temp: 98.6 degrees F (37 degrees C) 98.2 degrees F (36.8 degrees C) 98.5 degrees F (36.9 degrees C) 97.5 degrees F (36.4 degrees C) TempSrc: Oral Oral Oral Oral SpO2: 95% 91% 92% 100% Weight: Height: Wt Readings from Last 3 Encounters: 02/17/25 78.9 kg (173 lb 15.1 oz) 12/18/24 79.2 kg (174 lb 8 oz) 10/22/24 78.9 kg (174 lb) Intake/Output Summary (Last 24 hours) at 02/28/2025 1533 Last data filed at 02/28/2025 0800 Gross per 24 hour Intake 0 ml Output -- Net 0 ml Meds: ALPRAZolam 1 mg Oral QHS [Held by provider] calcium acetate - Phos Binder 667 mg Oral TID w/meals Cinacalcet 30 mg Oral Once per day on Sunday Cyclobenzaprine 10 mg Oral Q12H [START ON 03/01/2025] dialysate Dialysis Once in dialysis Doxycycline monohydrate 100 mg Oral Q12H Fluconazole 200 mg Oral QHS Lactulose 10 g Oral BID Levothyroxine 75 mcg Oral Before BKF Midodrine HCl 10 mg Oral Once per day on Sunday Pantoprazole 40 mg Oral BID vitamin C/B complex/folic acid (VIRT-CAPS) 1 capsule Oral Daily Warfarin 8 mg Oral Daily early evening Labs: Lab Results Component Value Date SODIUM 140 02/28/2025 POTASSIUM 4.5 02/28/2025 CHLORIDE 101 02/28/2025 CO2 25 02/28/2025 BUN 36 (H) 02/28/2025 CREATSERUM 6.59 (H) 02/28/2025 GLUCOSE 114 02/28/2025 Lab Results Component Value Date CALCIUM 8.9 02/28/2025 PHOSPHORUS 4.7 (H) 02/28/2025 Lab Results Component Value Date IRON 102 02/12/2023 FERRITIN 224.3 09/12/2021 Lab Results Component Value Date ALBUMIN 3.4 (L) 02/14/2025 ALBUMINALB 3.4 (L) 09/05/2021 Assessment : ESKD on HD Plan and recommendations: Patient is seen and examined during dialysis. Dialysis prescription reviewed and adjusted as needed. Access is functional. Patient tolerated treatment without issues. Alexander Stiles MD Division of Nephrology Pager: [phone] documented in this encounter [facility] 03-06-2025 Procedure note Associated Ord er(s): GENERAL PROCEDURE Dialysis Procedure Note Subjective/ events: Seen on HD. No new complaints . Vitals were stable. Dialysis Prescription Indication of HD: ESRD UF (kg): 1-2 kg, K (meq) bath: 3K BFR (ml/min): 400 DFR (ml/min): 800 Access: TDC Vitals Vitals: 03/05/25 2047 03/05/25 2351 03/06/25 0457 03/06/25 0719 BP: 127/54 114/52 104/48 98/50 Pulse: 79 70 76 83 Resp: 16 16 16 16 Temp: 97.1 degrees F (36.2 degrees C) 97.8 degrees F (36.6 degrees C) 98.2 degrees F (36.8 degrees C) 97.4 degrees F (36.3 degrees C) TempSrc: Oral Oral Oral Oral SpO2: 96% 98% 97% 93% Weight: Height: Wt Readings from Last 3 Encounters: 02/17/25 78.9 kg (173 lb 15.1 oz) 12/18/24 79.2 kg (174 lb 8 oz) 10/22/24 78.9 kg (174 lb) Intake/Output Summary (Last 24 hours) at 03/06/2025 1103 Last data filed at 03/06/2025 0600 Gross per 24 hour Intake 490 ml Output -- Net 490 ml Meds: ALPRAZolam 1 mg Oral QHS [Held by provider] calcium acetate - Phos Binder 667 mg Oral TID w/meals Cinacalcet 30 mg Oral Once per day on Sunday Cyclobenzaprine 10 mg Oral Q12H darbepoetin 60 mcg Subcutaneous Q7 days Doxycycline monohydrate 100 mg Oral Q12H Fluconazole 200 mg Oral QHS Lactulose 10 g Oral BID Levothyroxine 75 mcg Oral Before BKF Midodrine HCl 10 mg Oral Once per day on Sunday Pantoprazole 40 mg Oral BID vitamin C/B complex/folic acid (VIRT-CAPS) 1 capsule Oral Daily Warfarin 2 mg Oral Daily early evening Labs: Lab Results Component Value Date SODIUM 139 03/05/2025 POTASSIUM 5.1 (H) 03/05/2025 CHLORIDE 100 03/05/2025 CO2 25 03/05/2025 BUN 26 (H) 03/05/2025 CREATSERUM 5.35 (H) 03/05/2025 GLUCOSE 95 03/05/2025 Lab Results Component Value Date CALCIUM 9.4 03/05/2025 PHOSPHORUS 4.9 (H) 03/05/2025 Lab Results Component Value Date IRON 59 03/03/2025 FERRITIN 224.3 09/12/2021 Lab Results Component Value Date ALBUMIN 3.4 (L) 02/14/2025 ALBUMINALB 3.4 (L) 09/05/2021 Assessment : ESKD on HD Plan and recommendations: Patient is seen and examined during dialysis. Dialysis prescription reviewed and adjusted as needed. Access is functional. Patient tolerated treatment without issues. Alexander Stiles MD Division of Nephrology Pager: [phone] Associated Order(s): GENERAL PROCEDURE Dialysis Procedure Note Subjective/ events: Seen on HD. No new complaints . Vitals were stable. Dialysis Prescription Indication of HD: ESRD UF (kg): 1-2 K (meq) bath: 3K BFR (ml/min): 400 DFR (ml/min): 800 Access: TDC Vitals Vitals: 03/04/25 0300 03/04/25 0804 03/04/25 1030 03/04/25 1100 BP: 111/59 116/53 97/67 112/52 Pulse: 71 79 71 69 Resp: 20 20 (!) 28 24 Temp: 97.7 degrees F (36.5 degrees C) 98.3 degrees F (36.8 degrees C) 97.4 degrees F (36.3 degrees C) TempSrc: Oral Oral Oral SpO2: 100% 98% 100% 99% Weight: Height: Wt Readings from Last 3 Encounters: 02/17/25 78.9 kg (173 lb 15.1 oz) 12/18/24 79.2 kg (174 lb 8 oz) 10/22/24 78.9 kg (174 lb) Intake/Output Summary (Last 24 hours) at 03/04/2025 1143 Last data filed at 03/04/2025 0909 Gross per 24 hour Intake 1486.01 ml Output -- Net 1486.01 ml Meds: ALPRAZolam 1 mg Oral QHS [Held by provider] calcium acetate - Phos Binder 667 mg Oral TID w/meals Cinacalcet 30 mg Oral Once per day on Sunday Cyclobenzaprine 10 mg Oral Q12H darbepoetin 60 mcg Subcutaneous Q7 days [START ON 03/05/2025] dialysate Dialysis Once in dialysis Doxycycline monohydrate 100 mg Oral Q12H Fluconazole 200 mg Oral QHS Lactulose 10 g Oral BID Levothyroxine 75 mcg Oral Before BKF Midodrine HCl 10 mg Oral Once per day on Sunday Pantoprazole 40 mg Oral BID vitamin C/B complex/folic acid (VIRT-CAPS) 1 capsule Oral Daily Warfarin 3 mg Oral Daily early evening Labs: Lab Results Component Value Date SODIUM 135 03/03/2025 POTASSIUM 4.6 03/03/2025 CHLORIDE 97 (L) 03/03/2025 CO2 25 03/03/2025 BUN 24 03/03/2025 CREATSERUM 5.02 (H) 03/03/2025 GLUCOSE 89 03/03/2025 Lab Results Component Value Date CALCIUM 9.0 03/03/2025 PHOSPHORUS 4.5 03/03/2025 Lab Results Component Value Date IRON 59 03/03/2025 FERRITIN 224.3 09/12/2021 Lab Results Component Value Date ALBUMIN 3.4 (L) 02/14/2025 ALBUMINALB 3.4 (L) 09/05/2021 Assessment : ESKD on HD Plan and recommendations: Patient is seen and examined during dialysis. Dialysis prescription reviewed and adjusted as needed. Access is functional. Patient tolerated treatment without issues. Alexander Stiles MD Division of Nephrology Pager: [phone] Associated Order(s): GENERAL PROCEDURE Dialysis Procedure Note Subjective/ events: Seen on HD. No new complaints . Vitals were stable. Swab from exit site taken due to concern for infection Dialysis Prescription Indication of HD: ESRD UF (kg): 2-3 K (meq) bath: 3K BFR (ml/min): 400 DFR (ml/min): 800 Access: TDC Vitals Vitals: 02/27/25 2320 02/28/25 0249 02/28/25 0749 02/28/25 1155 BP: 109/54 112/75 124/59 109/52 Pulse: 71 79 76 76 Resp: Temp: 98.6 degrees F (37 degrees C) 98.2 degrees F (36.8 degrees C) 98.5 degrees F (36.9 degrees C) 97.5 degrees F (36.4 degrees C) TempSrc: Oral Oral Oral Oral SpO2: 95% 91% 92% 100% Weight: Height: Wt Readings from Last 3 Encounters: 02/17/25 78.9 kg (173 lb 15.1 oz) 12/18/24 79.2 kg (174 lb 8 oz) 10/22/24 78.9 kg (174 lb) Intake/Output Summary (Last 24 hours) at 02/28/2025 1533 Last data filed at 02/28/2025 0800 Gross per 24 hour Intake 0 ml Output -- Net 0 ml Meds: ALPRAZolam 1 mg Oral QHS [Held by provider] calcium acetate - Phos Binder 667 mg Oral TID w/meals Cinacalcet 30 mg Oral Once per day on Sunday Cyclobenzaprine 10 mg Oral Q12H [START ON 03/01/2025] dialysate Dialysis Once in dialysis Doxycycline monohydrate 100 mg Oral Q12H Fluconazole 200 mg Oral QHS Lactulose 10 g Oral BID Levothyroxine 75 mcg Oral Before BKF Midodrine HCl 10 mg Oral Once per day on Sunday Pantoprazole 40 mg Oral BID vitamin C/B complex/folic acid (VIRT-CAPS) 1 capsule Oral Daily Warfarin 8 mg Oral Daily early evening Labs: Lab Results Component Value Date SODIUM 140 02/28/2025 POTASSIUM 4.5 02/28/2025 CHLORIDE 101 02/28/2025 CO2 25 02/28/2025 BUN 36 (H) 02/28/2025 CREATSERUM 6.59 (H) 02/28/2025 GLUCOSE 114 02/28/2025 Lab Results Component Value Date CALCIUM 8.9 02/28/2025 PHOSPHORUS 4.7 (H) 02/28/2025 Lab Results Component Value Date IRON 102 02/12/2023 FERRITIN 224.3 09/12/2021 Lab Results Component Value Date ALBUMIN 3.4 (L) 02/14/2025 ALBUMINALB 3.4 (L) 09/05/2021 Assessment : ESKD on HD Plan and recommendations: Patient is seen and examined during dialysis. Dialysis prescription reviewed and adjusted as needed. Access is functional. Patient tolerated treatment without issues. Alexander Stiles MD Division of Nephrology Pager: [phone] documented in this encounter [facility] 03-03-2025 Consult note Associated Order (s): IP CONSULT TO INFECTIOUS DISEASE Images from the original note were not included. Infectious Disease Consult Note REQUESTING PHYSICIAN: Mel Aldana MD REASON FOR CONSULTATION: Pt with 1/2 positive blood cx MRSE, more likely contaminant but neph with concern about TDC site and want removed if c/f real bacteremia, appreciate eval HISTORY OF PRESENT ILLNESS: Christian Amador is a 75 y.o. male w h/o ESRD on HD, afib s/p AVN ablation and PPM, s/p AVR x3 c/b MRSA bacteremia on suppressive doxy, fungemia on chronic fluconazole, and MADRID cirrhosis who presented to the hospital on 02/13/2025 with fatigue and pleural effusion and found to have metapneumo vl course c/b GI bleeding. PT with bleeding around TDC site and blood cx from line for MRSE. Swabs of TDC site neg. REVIEW OF SYSTEMS: Constitutional: No fevers or chills Eyes: No vision changes Ears: No hearing changes Cardiovascular: No chest pain or palpitations Respiratory: No shortness of breath or cough Gastrointestinal: No abdominal pain, nausea/vomiting/constipation/diarr hea. Genitourinary: No urinary frequency or dysuria Musculoskeletal: No myalgia or arthralgia Skin: No rash Neurology: No paresthesias Hematology/Lymphatic: No edema CURRENT HOSPITALIZATION/LOS: Admit Date: 02/13/2025 [facility] Hospital LOS: 18 days MEDICAL HISTORY: Past Medical History: Diagnosis Date Anemia Arrhythmia Arthritis Atrial flutter Atrial tachycardia BPH (benign prostatic hyperplasia) CAD (coronary artery disease) Cardiomyopathy Congestive heart failure, unspecified Essential hypertension, benign GERD (gastroesophageal reflux disease) Gout Hematochezia Hematoma 03/2012, 04/2012 HTN (hypertension), benign Hyperlipidemia Hypothyroidism Kidney stones Leukocytosis Liver disease Lymphoma h/o chemo Lymphoma MIA (obstructive sleep apnea) Pacemaker Rheumatic heart disease S/P AVR (aortic valve replacement) mechanical S/P radiofrequency ablation operation for arrhythmia Seizure 06/08 Septic shock TIA (transient ischemic attack) Vascular disease SURGICAL HISTORY: Past Surgical History: Procedure Laterality Date UPGRADE GENERATOR PACEMAKER SINGLE TO DUAL CHAMBER SYSTEM N/A 04/02/2024 Laterality: N/A; Surgeon: Ronnie Ferrari MD; Location: [facility] EGD DIAGNOSTIC 06/2022 INSERTION CVC TUNNELED N/A 10/10/2021 Laterality: N/A; Surgeon: Remy Ferrer MD; Location: [facility] INTERVENTIONAL RADIOLOGY (VIR) INSERTION CVC TUNNELED N/A 10/03/2021 Laterality: N/A; Surgeon: Kaylin Duran II, MD; Location: [facility] INTERVENTIONAL RADIOLOGY (VIR) PLACEMENT PROBE FOR [...] CVC TUNNELED Right 07/07/2016 Laterality: Right; Surgeon: Kaylin Grider MD; Location: [facility] INTERVENTIONAL RADIOLOGY (VIR) CARDIAC VEIN ELECTRODE PLACEMENT FOR LV PACING N/A 05/26/2016 Laterality: N/A; Surgeon: Yi Cody MD; Location: [facility] EP PACEMAKER PLACEMENT N/A 05/26/2016 Laterality: N/A; Surgeon: Yi Cody MD; Location: [facility] EP INSERTION CVC TUNNELED Right 05/19/2016 Laterality: Right; Surgeon: Kaylin Grider MD; Location: [facility] INTERVENTIONAL RADIOLOGY (VIR) INSERTION CVC TUNNELED Left 05/18/2016 Laterality: Left; Surgeon: Kaylin Grider MD; Location: [facility] INTERVENTIONAL RADIOLOGY (VIR) PACEMAKER ELECTRODE REMOVAL N/A 05/08/2016 Laterality: N/A; Surgeon: Luigi Mart MD; Location: [facility] EP COLONOSCOPY DIAGNOSTIC N/A 03/20/2016 Laterality: N/A; Surgeon: Jeremiah García MD; Location: [facility] ENDOSCOPY EP IMPLANT BIVENTRICULAR PACEMAKER TOTAL 08/07/2013 [...] Versa CARDIAC PACEMAKER PLACEMENT 08/31/2003 Implant: Medtronic [id number] [place] [address] APPENDECTOMY AR ANES HRT PERICRD SAC&GRT 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 FAMILY HISTORY: Family History Problem Relation Age of Onset Diabetes Mother Heart Surgery Father CABG x5 Heart Disease - Other Father Coronary Artery Disease Father Breast Cancer Sister Diabetes Sister Heart Surgery Brother CABG x3 Heart Disease - Other Brother Coronary Artery Disease Brother Heart Disease - Other Paternal Aunt Diabetes Paternal Aunt Heart Disease - Other Paternal Uncle Diabetes Paternal Uncle Myocardial Infarction Paternal Uncle Heart Defect Paternal Uncle all Paternal uncles with heart problems Sudden Cardiac Paternal Uncle Myocardial Infarction Paternal Uncle SOCIAL HISTORY: Social History Tobacco Use Smoking status: Never Smokeless tobacco: Never Vaping Use Vaping status: Never Used Substance Use Topics Alcohol use: Never Drug use: No ALLERGIES: No Known Allergies PRIOR TO ARRIVAL MEDS: Medications Prior to Admission Medication Sig Dispense Refill Last Dose/Taking Acetaminophen (TYLENOL PO) Take by mouth. ALPRAZolam 1 MG tablet Take 1 tablet by mouth at bedtime. B Uddrhkb-B-Oyhpy Acid (NEPHRO-BALTAZAR PO) Take 1 tablet by mouth at bedtime. Cyclobenzaprine 10 MG tablet Take 1 tablet by mouth 2 times daily. doxycycline hyclate 100 MG capsule Take 1 capsule by mouth 2 times daily. fluconazole 200 MG tablet Take 1 tablet by mouth See admin instructions. Starting 10/21, take 2 tablets once per day through 10/30. Starting 10/31, take 1 tablet once per day (Patient taking differently: Take 1 tablet by mouth daily.) 40 tablet 0 Lactulose 10 GM/15ML Solution oral solution Take 15 mL by mouth 2 times daily. levothyroxine 75 MCG tablet Take 1 tablet by mouth every morning before breakfast. 30 tablet 0 Midodrine HCl 10 MG tablet Take 1 tablet by mouth. 1 Tablet Sunday, Sunday, Sunday 2 Tablets Sun And Sun pantoprazole [address] tablet DR Take 1 tablet by mouth daily. 30 tablet 0 rifAXIMin 550 MG tablet Take 1 tablet by mouth 2 times daily. 60 tablet 11 Sensipar 30 MG tablet Take 1 tablet by mouth 3 times weekly. warfarin 2 MG tablet Take 1 tablet by mouth every evening at 6 PM. Scheduled Meds: ALPRAZolam 1 mg Oral QHS [Held by provider] calcium acetate - Phos Binder 667 mg Oral TID w/meals Cinacalcet 30 mg Oral Once per day on Sunday Cyclobenzaprine 10 mg Oral Q12H darbepoetin 60 mcg Subcutaneous Q7 days Doxycycline monohydrate 100 mg Oral Q12H Fluconazole 200 mg Oral QHS Lactulose 10 g Oral BID Levothyroxine 75 mcg Oral Before BKF Midodrine HCl 10 mg Oral Once per day on Sunday Pantoprazole 40 mg Oral BID vitamin C/B complex/folic acid (VIRT-CAPS) 1 capsule Oral Daily Warfarin 5 mg Oral Daily early evening Continuous Infusions: heparin 7 Units/kg/hr (03/03/25 06) PRN Meds:Albuterol, hydroxyzine, Melatonin OBJECTIVE FINDINGS: Vital Signs (24hrs): Temp: [97.4 F (36.3 C)-98.2 F (36.8 C)] 97.8 F (36.6 C) Pulse (Heart Rate): [69-139] 72 Resp Rate: [16-37] 16 BP: (81-116)/(44-56) 116/56 O2 Sat (%): [95 %-100 %] 95 % Lines/Drains/Airways/Wounds: Patient Lines/Drains/Airways Status Active Lines, Drains, Airways, & Wound Overview Name Placement date Placement time Site Days Tunneled Central Line - Double Lumen 10/10/21 1116 red white internal jugular vein, right other (see comments) 10/10/21 1116 -- 1239 Peripheral IV Line - Single Lumen 02/14/25 1840 forearm, posterior, right 22 gauge 02/14/25 1840 -- 16 Wound Skin Tear 02/03/23 1515 Midline;Posterior Buttocks 02/03/23 1515 Buttocks 758 Wound Surgical 02/13/23 0820 incision Left Back 02/13/23 0820 Back 749 PHYSICAL EXAM: General: Laying in bed, no apparent distress. HEENT: Pupils equal and reactive, extraocular muscles intact. Mucous membranes are moist. Neck: Supple, no lymphadenopathy. CV: S1 and S2 normal, no murmurs, clicks, gallops or rubs. Regular rate and rhythm. Pulm: Chest is clear, no wheezing or rales. Normal symmetric air entry throughout both lung chavez. No chest wall deformities or tenderness. Trunk/Abd: The abdomen is soft without tenderness, guarding, mass, rebound or organomegaly. Bowel sounds are normal. Ext & Skin: TDC site; Neuro: Patient is alert and oriented times three. DIAGNOSTIC RESULTS/PROCEDURES: WBC/Hgb/Hct/Plts: 8.86/10.9/35.1/288 (03/03 517) Bun/Creat/Cl/CO2/Glucose: 24/5.02/97/25/89 (03/03 517) Na/K+/Phos/Mg/Ca: 135/4.6/4.5/1.9/9.0 (03/03 517) Lab Results Component Value Date SEDRATE 51 06/05/2016 Lab Results Component Value Date CRP 26.1 06/05/2016 Cultures: Reviewed Cx TDC site neg Blood cx line + MRSE Radiology/Images: Reviewed TTE 4-1: Mildly dilated left ventricle with mild increase in septal wall wall thickness (max 1.2 cm). Normal systolic function, LVEF 55-60%, with abnormal septal motion. Diastolic function could not be assessed d/t MVr. Normal right ventricular size with low normal systolic function. S/p mitral valve repair with an annuloplasty ring & mild residual, posteriorly directed, regurgitation (EROA 0.15 cm2). MV gradients of 12/4 mmHg obtained at HR of 70 bpm. Prosthesis in aortic position, appears well seated. Disk mobility could not be assessed. No evidence of dysfunction on Doppler assessment (Vmax 1.9, PG 15/9 mmHg, DI Vmax 0.27, DI VTI 0.33) with mild regurgitation. Mild to moderate tricuspid regurgitation with moderate RVSP elevation, estimated at 55 mmHg. Mild dilation of the visualized segments of the ascending aorta (3.8 cm). No evidence of intracardiac shunting on agitated saline or color Doppler study. ASSESSMENT: Line cx + MRSE, swabs insertion site neg. 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 pMV with PPM Cirrhosis RECOMMENDATIONS: Hold any additional abx for now. Repeat line and peripheral blood cx. Please ensure sterile technique in obtaining blood cx. If neg would conclude the initial cx and contaminant. If positive start vanco and remove line and get DIMITRI. ID team 5 to follow. Garcia Bay MD, PhD [facility] Associated Order(s): IP CONSULT TO GASTROENTEROLOGY Images from the original note were not included. HEPATOLOGY INITIAL CONSULT NOTE Reason for Consultation: anemia and hematochezia HISTORY OF PRESENT ILLNESS: Christian Amador is a 74 y.o. 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 Follows with Dr. Fry outpatient. GI consulted for BRBPR, anemia. Endorses intermittent rectal bleeding (describes as blood mixed with stool) which he has noticed in the past and attributed to his known external hemorrhoids. Single episode of overt hematochezia while he was at OSH along with single episode of nonbloody emesis. Denies hematemesis, CGE, melena. Also noticed worsening SOB on exertion so was seen by PCP who ordered a CXR that found large pleural effusion so was advised to go to ED. At baseline sleeps on several pillows at home or elevated HOB. OSH CT Chest showing moderate sized Left pleural fluid collection most compatible with empyema. Reticoulonodular groundglass opacities thorughout bilateral lungs. They did not perform thoracentesis or place chest tube. OSH CTA A/P for GI bleeding which showed no acute GI bleed but multiple small L adrenal nodules, markedly enlarged prostate. OSH notable for Hb 8.1, WBC 7.9, INR 1.4. Most recent vitals: stable, on 2L NC. Pertinent labs: WBC 8.5, Hgb 7.4 (baseline 11-12), PLT 157, INR 1.7. Evaluated by pulmonology and thoracic surgery for pleural effusion-- neither plan intervention given apparent chronicity of collection. Decompensated [facility] cirrhosis history - HE: rifaximin 550mg bid and lactulose - Varices: previously deferred EV screening given his medical conditions, need for AC and bridging therapy if stopped, etc. He would not be an ideal candidate for band ligation given need for AC and has not tolerated beta blockers given hypotension. - Renal: on HD - Ascites: n/a - SBP: n/a - HCC: most recent OSH RUQUS normal (12/31/24); AFP 2.6 (10/2024) Anticoagulation/Antiplatelet: warfarin, bridging over with hep gtt NSAIDs: denies Imaging: OSH imaging as above [facility] over read of CT Chest 1. Left pleural effusion with dense pleural thickening suggestive of empyema. 2. Asymmetric patches of groundglass attenuation bilaterally, suggestive of pneumonia. Prior endoscopy: OSH colonoscopy (07/2020) - Non-bleeding external and internal hemorrhoids. - Diverticulosis in the sigmoid colon, in the descending colon, in the transverse colon and in the ascending colon. - Erythematous mucosa in the ascending colon. Biopsied. Right colon, biopsy - Colonic mucosa with no significant diagnostic alteration. OS EGD 07/17/2022 Blood products: n/a Most recent TTE: EF 45-50%, RVSP normal PAST MEDICAL HISTORY: PAST MEDICAL HISTORY Past Medical History: Diagnosis Date Anemia Arrhythmia Arthritis Atrial flutter Atrial tachycardia BPH (benign prostatic hyperplasia) CAD (coronary artery disease) Cardiomyopathy Congestive heart failure, unspecified Essential hypertension, benign GERD (gastroesophageal reflux disease) Gout Hematochezia Hematoma 03/2012, 04/2012 HTN (hypertension), benign Hyperlipidemia Hypothyroidism Kidney stones Leukocytosis Liver disease Lymphoma h/o chemo Lymphoma MIA (obstructive sleep apnea) Pacemaker Rheumatic heart disease S/P AVR (aortic valve replacement) mechanical S/P radiofrequency ablation operation for arrhythmia Seizure 06/08 Septic shock TIA (transient ischemic attack) Vascular disease PAST SURGICAL HISTORY Past Surgical History: Procedure Laterality Date UPGRADE GENERATOR PACEMAKER SINGLE TO DUAL CHAMBER SYSTEM N/A 04/02/2024 Laterality: N/A; Surgeon: Ronnie Ferrari MD; Location: [facility] EGD DIAGNOSTIC 06/2022 INSERTION CVC TUNNELED N/A 10/10/2021 Laterality: N/A; Surgeon: Remy Ferrer MD; Location: [facility] INTERVENTIONAL RADIOLOG[facility] (VIR) INSERTION CVC TUNNELED N/A 10/03/2021 Laterality: N/A; Surgeon: Kaylin Duran II, MD; Location: [facility] INTERVENTIONAL RADIOLOG[facility] (VIR) PLACEMENT PROBE FOR TRANSESOPHAGEAL [...] CVC TUNNELED Right 07/07/2016 Laterality: Right; Surgeon: Kaylin Grider MD; Location: [facility] INTERVENTIONAL RADIOLOGY (VIR) CARDIAC VEIN ELECTRODE PLACEMENT FOR LV PACING N/A 05/26/2016 Laterality: N/A; Surgeon: Yi Cody MD; Location: [facility] EP PACEMAKER PLACEMENT N/A 05/26/2016 Laterality: N/A; Surgeon: Yi Cody MD; Location: [facility] EP INSERTION CVC TUNNELED Right 05/19/2016 Laterality: Right; Surgeon: Kaylin Grider MD; Location: [facility] INTERVENTIONAL RADIOLOGY (VIR) INSERTION CVC TUNNELED Left 05/18/2016 Laterality: Left; Surgeon: Kaylin Grider MD; Location: [facility] INTERVENTIONAL RADIOLOGY (VIR) PACEMAKER ELECTRODE REMOVAL N/A 05/08/2016 Laterality: N/A; Surgeon: Luigi Mart MD; Location: [facility] EP COLONOSCOPY DIAGNOSTIC N/A 03/20/2016 Laterality: N/A; Surgeon: Jeremiah García MD; Location: [facility] ENDOSCOPY EP IMPLANT BIVENTRICULAR PACEMAKER TOTAL 08/07/2013 3 leads CARDIAC VEIN ELECTRODE PLACEMENT FOR LV PACING N/A 08/07/2013 Laterality: N/A; Surgeon: Favio Kline MD; Location: [facility] EP PACEMAKER ELECTRODE REMOVAL 08/07/2013 Surgeon: Favio Kline MD; Location: [facility] EP AV NODE ABLATION N/A 02/26/2013 Laterality: N/A; Surgeon: Favio lKine MD; Location: [facility] EP CARDIAC PACEMAKER PLACEMENT 10/20/2010 Implant: Medtronic [id number] Versa CARDIAC PACEMAKER PLACEMENT 08/31/2003 Implant: [employer]onic [id number] [place] [address] APPENDECTOMY AR ANES HRT PERICRD SAC&GRT 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 He has never used smokeless tobacco. He reports that he does not drink alcohol and does not use drugs. FAMILY HISTORY Family History Problem Relation Age of Onset Diabetes Mother Heart Surgery Father CABG x5 Heart Disease - Other Father Coronary Artery Disease Father Breast Cancer Sister Diabetes Sister Heart Surgery Brother CABG x3 Heart Disease - Other Brother Coronary Artery Disease Brother Heart Disease - Other Paternal Aunt Diabetes Paternal Aunt Heart Disease - Other Paternal Uncle Diabetes Paternal Uncle Myocardial Infarction Paternal Uncle Heart Defect Paternal Uncle all Paternal uncles with heart problems Sudden Cardiac Paternal Uncle Myocardial Infarction Paternal Uncle REVIEW OF SYSTEMS: 10-point ROS negative unless otherwise noted in HPI. PHYSICAL EXAM: Temp: [97.3 F (36.3 C)-98.7 F (37.1 C)] 98.1 F (36.7 C) Pulse (Heart Rate): [69-81] 81 Resp Rate: [16-30] 18 BP: (93-115)/(50-83) 107/53 O2 Sat (%): [92 %-100 %] 98 % Weight: [78.9 kg (174 lb)] 78.9 kg (174 lb) Wt Readings from Last 3 Encounters: 02/13/25 78.9 kg (174 lb) 12/18/24 79.2 kg (174 lb 8 oz) 10/22/24 78.9 kg (174 lb) Gen: AAO x 3, NAD Card: RRR Pulm: normal WOB Abd: soft, NT, ND. No ascites. Ext: no edema Neuro: no focal deficits or asterixis LABS: Reviewed. IMAGING/STUDIES: All relevant imaging and procedures were reviewed. MELD 3.0: 24 at 02/14/2025 12:26 AM MELD-Na: 26 at 02/14/2025 12:26 AM Calculated from: Serum Creatinine: 4.06 mg/dL (Using max of 3 mg/dL) at 02/14/2025 12:26 AM Serum Sodium: 136 mmol/L at 02/14/2025 12:26 AM Total Bilirubin: 0.7 mg/dL (Using min of 1 mg/dL) at 02/14/2025 12:26 AM Serum Albumin: 3.4 g/dL at 02/14/2025 12:26 AM INR(ratio): 1.7 at 02/14/2025 12:26 AM Age at listing (hypothetical): 74 years Sex: Male at 02/14/2025 12:26 AM ASSESSMENT: Christian Amador is a 74 y.o. 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 Follows with Dr. Fry outpatient. GI consulted for BRBPR, anemia. His BRBPR is likely outlet bleeding from known hemorrhoids. However he has had a large drop in hemoglobin from baseline in the span of 2 months and it seems unlikely that this is entirely attributable to hemorrhoids. 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 His ESRD also predisposes to formation of AVMs which can have a similar effect. RECOMMENDATIONS: - Plan for EGD and colonoscopy, earliest possible on 02/16. - Start prep on 02/15, instructions below. Make NPO at 0001 on 02/16 - Please hold heparin gtt starting at midnight prior to procedure - IV PPI 40mg bid - 2 large bore IV (18 gauge or more) - Trend CBC, transfuse for goal Hgb > 7 - Ceftriaxone as part of UGIB prophylaxis in cirrhosis - Check CBC, coags, and BMP in the morning of procedure. Please ensure that hemoglobin is >7, platelets >50 and INR <1.6 - Endoscopy may need to be rescheduled reasons including but not limited to the following: urgent / emergent procedures, change in clinic status (example - respiratory decompensation overnight, hypotension, etc), echocardiogram ordered but not complete prior to endoscopy or at the discretion of anesthesia staff Prep instructions Use colonoscopy order set which includes diet, prep and labs. - If patient is unable to tolerate the prep, can consider placing an NG tube to help with administration. - appropriate stool for colonoscopy should be clear or light yellow; there should be NO brown stool; there should be no solid or semi-solid stool components; the floor RN should assist in assessing stool for appropriateness - failure of adequate bowel prep and confirmation may result in delay of patient's colonoscopy Decompensated [facility] cirrhosis history - HE: continue rifaximin 550mg bid and lactulose - Varices: previously deferred EV screening given his medical conditions, need for AC and bridging therapy if stopped, etc. He would not be an ideal candidate for band ligation given need for AC and has not tolerated beta blockers given hypotension. - Renal: on HD - Ascites: n/a - SBP: n/a - HCC: most recent OSH RUQUS normal (12/31/24); AFP 2.6 (10/2024) This consult was seen and discussed with Dr. Marcos, the attending physician. We will continue to follow. Elie Sanches MD Fellow, Gastroenterology Cosigned by Fernanad Marcos MD at 02/14/2025 1:58 PM EDT Associated attestation - Fernanda Marcos MD - 02/14/2025 1:58 PM EDT ATTENDING STATEMENT: Patient's history and physical exam reviewed with the fellow. All pertinent laboratory data, imaging and procedures have been reviewed. I have reviewed the fellow's documentation and have made appropriate changes. I agree with the fellow's dictated impression and plan as outlined below. In summary, Christian Amador is a 74 y.o.male with MASH cirrhosis c/b HE, rheumatic heart disease s/p MVR on warfarin, ESRD on HD who is admitted with rectal bleeding and acute on chronic anemia. Patient reports intermittent rectal bleeding - bright red blood mixed with stool. Notes that stool is chronically dark. Hgb is ~7 here, previous baseline of 11-12 as recently as 11/2024. Has not had recent endoscopic evaluation given need for uninterrupted anticoagulation. Now, given concern for blood loss and ability to bridge warfarin as an inpatient, reasonable to pursue both EGD (history of GAVE) and colonoscopy. Prep instructions as noted by Dr. Sanches. Warfarin should be held (with heparin gtt continued). Please ensure BID lactulose is continued. Please contact the hepatology consult service with additional questions and concerns. Fernanda Marcos MD Guidance Director of Internal Medicine Division of Gastroenterology, Hepatology, and Nutrition Pager: [phone] Associated Order(s): IP CONSULT TO PULMONOLOGY Images from the original note were not included. Pulmonary/Critical Care Medicine Inpatient Consultation Reason for Consultation: 74 yo transferred to [facility] for L pleural fluid collection concerning for empyema. Thoracic recommending pulm consult Requesting Physician: Nayeli Casillas MD Outpatient Pulmonary Physician: none HPI: Christian Amador is a 74 y.o. male w/PMHx of non-hodgkin's lymphoma s/p therapy, HTN, ESRD on HD, cardiomyopathy s/p PPM, BPH, CAD, s/p mechanical AVR on warfarin, MRSA bacteremia on suppressive antibiotics, fungemia on suppressive antifungals who presented on 02/13/2025 with from an OSH for evaluation of a pleural effusion. He originally presented to a hospital in [place], [place] with subacute worsening of chronic weakness over the course of about 1.5-3 weeks. Prior to this, he was able to perform ADLs and walk about half a city block: now, he can barely sit on the side of the bed without significant difficulty. He has a chronic dry cough since 2010 that has worsened over the last 1.5-3wks and is now productive of greenish sputum. His had increased cough over this time as well. He denies fever, chills, chest pain, rigors. He notes a history of chronic dyspnea for an unspecified amount of time, but at least 1 year. As above, he is unable to walk more than half a block at a time without feeling short of breath. Relevant Prior Pulmonary History: Chronic left pleural effusion since at least 2020. Previously exudative in 2022. Chest tube placed in 2022 without significant resolution of effusion. Never smoker. Lives with 1 cat and 1 dog, no birds. He has minimal workplace exposures. Never in the or [facility]. No history of lung cancer. No history of asthma. ROS: Pertinent positives and negatives as per HPI. All other systems were reviewed and negative. Past Medical, Surgical, Family & Social History: Past Medical History: Diagnosis Date Anemia Arrhythmia Arthritis Atrial flutter Atrial tachycardia BPH (benign prostatic hyperplasia) CAD (coronary artery disease) Cardiomyopathy Congestive heart failure, unspecified Essential hypertension, benign GERD (gastroesophageal reflux disease) Gout Hematochezia Hematoma 03/2012, 04/2012 HTN (hypertension), benign Hyperlipidemia Hypothyroidism Kidney stones Leukocytosis Liver disease Lymphoma h/o chemo Lymphoma MIA (obstructive sleep apnea) Pacemaker Rheumatic heart disease S/P AVR (aortic valve replacement) mechanical S/P radiofrequency ablation operation for arrhythmia Seizure 06/08 Septic shock TIA (transient ischemic attack) Vascular disease Past Surgical History: Procedure Laterality Date UPGRADE GENERATOR PACEMAKER SINGLE TO DUAL CHAMBER SYSTEM N/A 04/02/2024 Laterality: N/A; Surgeon: Ronnie Ferrari MD; Location: [facility] EP EGD DIAGNOSTIC 06/2022 INSERTION CVC TUNNELED N/A 10/10/2021 Laterality: N/A; Surgeon: Remy Ferrer MD; Location: [facility] INTERVENTIONAL RADIOLOGY (VIR) INSERTION CVC TUNNELED N/A 10/03/2021 Laterality: N/A; Surgeon: Kaylin Duran II, MD; Location: [facility] INTERVENTIONAL RADIOLOGY (VIR) PLACEMENT PROBE FOR TRANSESOPHAGEAL ECHOCARDIOGRAPHY N/A 09/23/2021 Laterality: N/A; Surgeon: Sadia Nieto MD; Location: [facility] MAIN OR ESS NASAL DIAGNOSTIC Bilateral 09/20/2021 Laterality: Bilateral; Surgeon: You Wise MD; Location[facility] MA[facility] OR ESS SPHENOID SINUSOTOMY WITH REMOVAL TISSUE Right 09/20/2021 Laterality: Right; Surgeon: You Wise MD; Location[facility] MA[facility] OR ESS TOTAL ETHMOIDECTOMY Right 09/20/2021 Laterality: Right; Surgeon: You Wise MD; Location[facility] MAIN OR REMOVAL CVC TUNNELED Right 07/07/2016 Laterality: Right; Surgeon: Kalyin Grider MD; Location: [facility] INTERVENTIONAL RADIOLOGY (VIR) CARDIAC VEIN ELECTRODE PLACEMENT FOR LV PACING N/A 05/26/2016 Laterality: N/A; Surgeon: Yi Cody MD; Location: [facility] EP PACEMAKER PLACEMENT N/A 05/26/2016 Laterality: N/A; Surgeon: Yi Cody MD; Location: [facility] EP INSERTION CVC TUNNELED Right 05/19/2016 Laterality: Right; Surgeon: Kaylin Grider MD; Location: [facility] INTERVENTIONAL RADIOLOGY (VIR) INSERTION CVC TUNNELED Left 05/18/2016 Laterality: Left; Surgeon: Kaylin Grider MD; Location: [facility] INTERVENTIONAL RADIOLOGY (VIR) [...] Versa CARDIAC PACEMAKER PLACEMENT 08/31/2003 Implant: Medtronic [id number] [place] [address] APPENDECTOMY AR ANES HRT PERICRD SAC&GRT 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 Family History Problem Relation Age of Onset Diabetes Mother Heart Surgery Father CABG x5 Heart Disease - Other Father Coronary Artery Disease Father Breast Cancer Sister Diabetes Sister Heart Surgery Brother CABG x3 Heart Disease - Other Brother Coronary Artery Disease Brother Heart Disease - Other Paternal Aunt Diabetes Paternal Aunt Heart Disease - Other Paternal Uncle Diabetes Paternal Uncle Myocardial Infarction Paternal Uncle Heart Defect Paternal Uncle all Paternal uncles with heart problems Sudden Cardiac Paternal Uncle Myocardial Infarction Paternal Uncle Social History Tobacco Use Smoking status: Never Smokeless tobacco: Never Vaping Use Vaping status: Never Used Substance Use Topics Alcohol use: Never Drug use: No Allergies & Medications: No Known Allergies Scheduled Medications: ALPRAZolam 1 mg Oral QHS calcium acetate - Phos Binder 667 mg Oral TID w/meals Cinacalcet 30 mg Oral Once per day on Sunday Cyclobenzaprine 10 mg Oral Q12H Doxycycline monohydrate 100 mg Oral Q12H Fluconazole 200 mg Oral Daily Lactulose 10 g Oral Daily [START ON 02/14/2025] Levothyroxine 75 mcg Oral Before BKF [START ON 02/16/2025] Midodrine HCl 10 mg Oral Once per day on Sunday Pantoprazole 40 mg Oral Daily [Held by provider] warfarin 2 mg Oral Once per day on Sunday And [Held by provider] Warfarin 1 mg Oral Once per day on Sunday Continuous Infusions: PRN Medications:Melatonin Objective Findings: Physical Exam: Temp: [97.7 F (36.5 C)] 97.7 F (36.5 C) Pulse (Heart Rate): [76] 76 Resp Rate: [18] 18 BP: (110)/(51) 110/51 O2 Sat (%): [96 %] 96 % Weight: [78.9 kg (174 lb)] 78.9 kg (174 lb) GEN: deconditioned elderly gentleman, NAD HEENT: mucosa moist, pupils equal and reactive to light, slow speech, hard of hearing RESP: normal inspiratory effort, bilateral polyphonic expiratory wheezing in most lung chavez, inspiratory crackles in bilateral lower windows CV: RRR, no m/g/r. Very prominent S2, loudest over LUSB. GI: soft, NT, ND, MSK: no gross deformities EXT: no lower extremity edema SKIN: no overt clubbing, warm, dry NEURO: AxOx3, no gross motor deficits Wt Readings from Last 10 Encounters: 02/13/25 78.9 kg (174 lb) 12/18/24 79.2 kg (174 lb 8 oz) 10/22/24 78.9 kg (174 lb) 04/16/24 (P) 78.9 kg (174 lb) 04/02/24 76.5 kg (168 lb 10.4 oz) 03/24/24 77.1 kg (169 lb 15.6 oz) 12/05/23 77.1 kg (170 lb) 07/13/23 79.4 kg (175 lb) 02/12/23 74.4 kg (164 lb 0.4 oz) 01/15/23 79.4 kg (175 lb) Lab Data: WBC/Hgb/Hct/Plts: 7.93/7.3/24.4/139 (02/13 1150) Na/K+/Phos/Mg/Ca: 140/3.6/2.9/1.8/7.5 (02/13 1150) Bun/Creat/Cl/CO2/Glucose: 33/7.16/97/31/87 (02/13 1150) Ptt/Pt/Inr: --/20.0/1.7 (02/13 115) Relevant Microbiologic Data: Lab Results Component Value Date BALIMPRESSIO 12/12/2010 (NOTE) Cellular specimen comprised of alveolar macrophages and rare neutrophils. No microorganisms are seen. Moderare red blood cells. Review Of Tests and Records: CXR: 02/12/2025 Comparison to 02/05/[address]: 02/13/2025 on top, 02/03/2023 on bottom Prior Echo: 03/24/2024 Left Ventricle: Chamber size is mildly enlarged. Increased wall thickness. Mild concentric hypertrophy. Global hypokinesis. Abnormal septal motion consistent with right ventricular pacing. Ejection fraction is mildly reduced (45 - 50%). Unable to assess diastolic function. Right Ventricle: Chamber size is normal. Systolic function is normal. Device wire is present. Left Atrium: Chamber size is enlarged. Right Atrium: Chamber size is normal. A device wire is present. Aortic Valve: [address] [place] mechanical valve. Stable appearing. Mitral Valve: Moderate anterior and posterior leaflet thickening. Leaflet mobility is restricted. A prosthetic 28 mm Brady annular ring is present. Tricuspid Valve: Mild regurgitation. Estimated right ventricular systolic pressure is 36 mmHg. Pulmonary artery/right heart systolic pressure is elevated. (Mild) Comment: Limited Study. Technically difficult study. I have personally reviewed and interpreted the above imaging studies with the pulmonary/critical care attending. Impression & Recommendations: 74yo male with a notable pmh of lymphoma s/p chemotherapy, numerous cardiac surgeries, ESRD on HD, MADRID cirrhosis who presented for evaluation of a pleural effusion from an OSH. This pleural effusion is chronic and most likely secondary to a previous cardiac surgery and does not likely represent an active empyema or acute process. Impression: Chronic Left Pleural Effusion Etiology is possibly a prior cardiac surgery given the exudative, but noninfected and nonmalignant nature of the effusion in 2022. Unlikely to represent an acute infection like empyema. He has few symptoms of intrapleural sepsis and the effusion is nearly identical to the previous effusion Remarkably similar in size and character as 202. There is a chance the effusion is contributing to his chronic dyspnea. 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 At this time, definitive management of the effusion would require VATS due to the chronic nature and thickened pleural rinds that would not respond to chest tube drainage. Increased Cough and Sputum Production Unclear etiology, but a low level of bacterial or viral infection may be present. Recommendations: Infectious work up with lower respiratory culture, RVP, urine strep and legionella antigens It is reasonable to cover for CAP. Ultimate choice of antibiotics per primary. We do not feel a chest tube or thoracentesis is warranted at this time: the effusion is chronic and stable appearing compared to 2023 and we have very little concern for intrapleural sepsis at this time. Standard bronchopulmonary hygiene with IS, PEP, frequent ambulation (if unable to ambulate, frequent up to chair and PT/OT) Given wheezing on exam, recommend prn albuterol or duoneb nebulizers Thank you for this consult. Please page with additional questions or concerns. Patient was seen and discussed with the pulmonary consult attending. All recommendations are preliminary until cosigned by the attending. Layo Steward MD Internal Medicine PGY-2 [facility] Pulmonary Consults Cosigned by Israel Kemp MD at 02/13/2025 9:22 PM EDT Associated attestation - Israel Kemp MD - 02/13/2025 9:22 PM EDT Pulmonary/Critical Care Staff. I personally interviewed and examined this patient and discussed the case with the resident. I reviewed the history and exam detailed in the note. I agree with the medical decision making, assessment and plan. The patient has a chronic left pleural effusion dating back to at least 2020 with evidence of loculation since 2022. No significant change in appearance of the effusion now compared to January 2023. Attempts at drainage of the effusion and improvement in the pleural space were attempted in 2022 with a pigtail catheter. There was no benefit then. I see no reason to repeat the procedure now. It is not likely that this chronic pleural effusion is contributing to the patient's current symptoms of weakness. It could be contributing to underlying dyspnea and respiratory insufficiency due to restriction of left lung. However, this would require VATS to address which carries significant morbidity in this patient. The patient does have a productive cough and would check a sputum culture. Israel Kemp MD assisted living director Division of Pulmonary Medicine, Critical Care and Sleep Dept of Internal Medicine [facility] Associated Order(s): IP CONSULT TO INTERVENTIONAL RADIOLOGY Interventional Radiology Consult Note [facility] evaporator supervisor [id number] - [facility] evaporator supervisor [id number] PATIENT: Mr. Christian Amador Admission Date: 02/13/2025 Requesting Provider/Service: Fernanda Parra MD HPI: Christian Amador is a 74 y.o. male with HTN, ESRD on dialysis, lymphoma s/p chemotherapy, who presented with worsening cough, was found to have left lung loculated effusion. Reason for Consult: 74 yo transferred to [facility] for L pleural fluid collection concerning for empyema. Thoracic recommending pulm consult Currently on Blood Thinner: Warfarin, currently being held Sedation Anticipated: Moderate Diet: DIET LIVER - VERY LOW SODIUM Code Status: Full Code Pertinent Labs: Lab Results Component Value Date/Time INR 1.7 (H) 02/13/2025 11:50 AM INR 2.6 (H) 06/01/2016 04:13 AM PLATELET 139 (L) 02/13/2025 11:50 AM PLATELET 196 08/07/2016 09:38 AM PLATELET 281 06/05/2016 12:00 AM HGB 7.3 (L) 02/13/2025 11:50 AM HGB 9.8 (L) 08/07/2016 09:38 AM HGB 9.3 06/05/2016 12:00 AM GFR 7 (L) 02/13/2025 11:50 AM GFR 34 (L) 10/20/2021 05:52 AM GFR 32 (L) 08/07/2016 09:38 AM No Known Allergies Contrast Allergy: No Current Medications: ALPRAZolam 1 mg Oral QHS calcium acetate - Phos Binder 667 mg Oral TID w/meals Cinacalcet 30 mg Oral Once per day on Sunday Cyclobenzaprine 10 mg Oral Q12H Doxycycline monohydrate 100 mg Oral Q12H Fluconazole 200 mg Oral Daily Lactulose 10 g Oral Daily [START ON 02/14/2025] Levothyroxine 75 mcg Oral Before BKF [START ON 02/16/2025] Midodrine HCl 10 mg Oral Once per day on Sunday Pantoprazole 40 mg Oral Daily [Held by provider] warfarin 2 mg Oral Once per day on Sunday And [Held by provider] Warfarin 1 mg Oral Once per day on Sunday Melatonin Vitals: Blood pressure 110/51, pulse 76, temperature 97.7 F (36.5 C), temperature source Oral, resp. rate 18, weight 78.9 kg (174 lb), SpO2 96%. Laboratory Data: Lab Results Component Value Date/Time PT 20.0 (H) 02/13/2025 11:50 AM PT 27.7 (H) 06/01/2016 04:13 AM INR 1.7 (H) 02/13/2025 11:50 AM INR 2.6 (H) 06/01/2016 04:13 AM PTT 80.4 (H) 12/19/2024 03:25 AM PTT 110 (HH) 06/01/2016 04:13 AM Lab Results Component Value Date WBC 7.93 02/13/2025 HGB 7.3 (L) 02/13/2025 HCT 24.4 (L) 02/13/2025 PLATELET 139 (L) 02/13/2025 MCV 110.4 (H) 02/13/2025 Lab Results Component Value Date SODIUM 140 02/13/2025 POTASSIUM 3.6 02/13/2025 CHLORIDE 97 (L) 02/13/2025 CO2 31 02/13/2025 BUN 33 (H) 02/13/2025 CREATSERUM 7.16 (H) 02/13/2025 GLUCOSE 87 02/13/2025 Lab Results Component Value Date/Time GFR 7 (L) 02/13/2025 11:50 AM GFR 34 (L) 10/20/2021 05:52 AM GFR 32 (L) 08/07/2016 09:38 AM Imaging Information: CT Chest 02/12/25 reviewed in the record. IMPRESSION AND RECOMMENDATIONS Christian Amador is a 74 y.o. male with HTN, ESRD on dialysis, lymphoma s/p chemotherapy, who presented with worsening cough, was found to have left lung loculated effusion. Will plan for Image Guided Left chest tube when IR schedule permits. Please keep NPO at midnight prior to the procedure. Coag goals INR <1.5 and Platelets > 50k. Please notify IR if the situation changes. Consult discussed with Dr. Parra from the requesting team on 02/13/2025 at 1:55 PM. Consult reviewed with IR Attending Dr. Clark who agrees with the above plan. Shana Lew MD; 02/13/2025, 1:34 PM Important Notes Procedures are performed with either moderate sedation or anesthesia services. Both require the patient to be NPO (which includes tube feeds). Patients will need to lie flat comfortably for the duration of the procedure. Please be aware that patients requiring anesthesia services will require additional coordination which may increase the time from consult to procedure. Cosigned by Dilan Clark MD at 02/13/2025 2:03 PM EDT Associated Order(s): IP CONSULT TO NEPHROLOGY Inpatient Nephrology Consult Note Reason for Consultation: ESRD Requesting Physician: Fernanda Parra MD History of Present Illness: Christian Amador is a 74 y.o. male who we have been consulted to see on 02/13/2025. Christian Amador has a past medical history of HTN,ESRD on home hemodialysis ,HTN,S/P AVR,lymphoma s/p chemo Patient was having progressive weakness for the past week or so. Chronic cough possibly worsening, chronic SOB stable. Not on O2 at home. He presented to his PCP who heard crackles in LLL and prescribed levaquin. Patient presented to [facility] ED last night for progressive symptoms and was found to have L pleural effusion concerning for empyema. WBC 7.9 at OSH. He was transferred immediately to [facility] for thoracic surgery evaluation. No chest tube was placed. He denies fevers/chills.he makes little urine gets Home HD 4 days a week for 3 hours he has a right TDC in place in nov it was replaced he gives use of amphotericin B used during his heart surgery as cause of esrd Nephrology is consulted for Dialysis management Past Medical History: Diagnosis Date Anemia Arrhythmia Arthritis Atrial flutter Atrial tachycardia BPH (benign prostatic hyperplasia) CAD (coronary artery disease) Cardiomyopathy Congestive heart failure, unspecified Essential hypertension, benign GERD (gastroesophageal reflux disease) Gout Hematochezia Hematoma 03/2012, 04/2012 HTN (hypertension), benign Hyperlipidemia Hypothyroidism Kidney stones Leukocytosis Liver disease Lymphoma h/o chemo Lymphoma MIA (obstructive sleep apnea) Pacemaker Rheumatic heart disease S/P AVR (aortic valve replacement) mechanical S/P radiofrequency ablation operation for arrhythmia Seizure 06/08 Septic shock TIA (transient ischemic attack) Vascular disease Past Surgical History: Procedure Laterality Date UPGRADE GENERATOR PACEMAKER SINGLE TO DUAL CHAMBER SYSTEM N/A 04/02/2024 Laterality: N/A; Surgeon: Ronnie Ferrari MD; Location: [facility] EP EGD DIAGNOSTIC 06/2022 INSERTION CVC TUNNELED N/A 10/10/2021 Laterality: N/A; Surgeon: Remy Ferrer MD; Location: [facility] INTERVENTIONAL RADIOLOGY (VIR) INSERTION CVC TUNNELED N/A 10/03/2021 Laterality: N/A; Surgeon: Kaylin Duran II, MD; Location: [facility] INTERVENTIONAL RADIOLOGY (VIR) PLACEMENT PROBE FOR TRANSESOPHAGEAL ECHOCARDIOGRAPHY N/A 09/23/2021 Laterality: N/A; Surgeon: Sadia Nieto MD; Location: [facility] MAIN OR ESS NASAL DIAGNOSTIC Bilateral 09/20/2021 Laterality: Bilateral; Surgeon: You Wise MD; Location: [facility] MAIN OR ESS SPHENOID SINUSOTOMY WITH REMOVAL TISSUE Right 09/20/2021 Laterality: Right; Surgeon: You Wise MD; Location: [facility] MAIN OR ESS TOTAL ETHMOIDECTOMY Right 09/20/2021 Laterality: Right; Surgeon: You Wise MD; Location: [facility] MAIN OR REMOVAL CVC TUNNELED Right 07/07/2016 Laterality: Right; Surgeon: Kaylin Grider MD; Location: [facility] INTERVENTIONAL RADIOLOGY (VIR) CARDIAC VEIN ELECTRODE PLACEMENT FOR LV PACING N/A 05/26/2016 Laterality: N/A; Surgeon: Yi Cody MD; Location: [facility] EP PACEMAKER PLACEMENT N/A 05/26/2016 Laterality: N/A; Surgeon: Yi Cody MD; Location: [facility] EP INSERTION CVC TUNNELED Right 05/19/2016 Laterality: Right; Surgeon: Kaylin Grider MD; Location: [facility] INTERVENTIONAL RADIOLOGY (VIR) INSERTION CVC TUNNELED Left 05/18/2016 Laterality: Left; Surgeon: Kaylin Grider MD; Location: [facility] INTERVENTIONAL RADIOLOGY (VIR) [...] Versa CARDIAC PACEMAKER PLACEMENT 08/31/2003 Implant: [employer]tr[employer] [id number] [place] [address] APPENDECTOMY AR ANES HRT PERICRD SAC&GRT 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 ALPRAZolam 1 MG tablet Take 1 tablet by mouth at bedtime. B Nqmubvp-I-Ojjga Acid (NEPHRO-BALTAZAR PO) Take 1 tablet by mouth at bedtime. Cyclobenzaprine 10 MG tablet Take 1 tablet by mouth 2 times daily. Docusate Sodium (COLACE PO) Take by mouth 2 times daily. doxycycline hyclate 100 MG capsule Take 1 capsule by mouth 2 times daily. fluconazole 200 MG tablet Take 1 tablet by mouth See admin instructions. Starting 10/21, take 2 tablets once per day through 10/30. Starting 10/31, take 1 tablet once per day (Patient taking differently: Take 1 tablet by mouth daily.) 40 tablet 0 Lactulose 10 GM/15ML Solution oral solution Take 15 mL by mouth 2 times daily. levothyroxine 75 MCG tablet Take 1 tablet by mouth every morning before breakfast. 30 tablet 0 Midodrine HCl 10 MG tablet Take 1 tablet by mouth. 1 Tablet Sunday, Sunday, Sunday 2 Tablets Sun And Sun pantoprazole [address] tablet DR Take 1 tablet by mouth daily. 30 tablet 0 rifAXIMin 550 MG tablet Take 1 tablet by mouth 2 times daily. 60 tablet 11 Sensipar 30 MG tablet Take 1 tablet by mouth 3 times weekly. Sucroferric Oxyhydroxide 500 MG Chew Tab Chew 1,000 mg 3 times daily with meals. Plus one tablet with snacks warfarin 2 MG tablet Take 1 tablet by mouth every evening at 6 PM. Inpatient Meds: ALPRAZolam 1 mg Oral QHS calcium acetate - Phos Binder 667 mg Oral TID w/meals Cinacalcet 30 mg Oral Once per day on Sunday Cyclobenzaprine 10 mg Oral BID Doxycycline monohydrate 100 mg Oral Q12H Fluconazole 200 mg Oral Daily Lactulose 10 g Oral Daily [START ON 02/14/2025] Levothyroxine 75 mcg Oral Before BKF [START ON 02/16/2025] Midodrine HCl 10 mg Oral Once per day on Sunday Pantoprazole 40 mg Oral Daily vancomycin 10 mg/kg (Adjusted) Intravenous Q48H [Held by provider] warfarin 2 mg Oral Once per day on Sunday And [Held by provider] Warfarin 1 mg Oral Once per day on Sunday No Known Allergies Family History Problem Relation Age of Onset Diabetes Mother Heart Surgery Father CABG x5 Heart Disease - Other Father Coronary Artery Disease Father Breast Cancer Sister Diabetes Sister Heart Surgery Brother CABG x3 Heart Disease - Other Brother Coronary Artery Disease Brother Heart Disease - Other Paternal Aunt Diabetes Paternal Aunt Heart Disease - Other Paternal Uncle Diabetes Paternal Uncle Myocardial Infarction Paternal Uncle Heart Defect Paternal Uncle all Paternal uncles with heart problems Sudden Cardiac Paternal Uncle Myocardial Infarction Paternal Uncle Social History Tobacco Use Smoking status: Never Smokeless tobacco: Never Vaping Use Vaping status: Never Used Substance Use Topics Alcohol use: Never Drug use: No Review of Systems: General ROS: as per HPI and the remainder of the ROS is negative. Physical Examination: Vital Signs Temp: [97.7 F (36.5 C)] 97.7 F (36.5 C) Pulse (Heart Rate): [76] 76 Resp Rate: [18] 18 BP: (110)/(51) 110/51 O2 Sat (%): [96 %] 96 % Weight: [78.9 kg (174 lb)] 78.9 kg (174 lb) No intake/output data recorded. No intake/output data recorded. BP 110/51 (BP Location: Right arm, BP Position: Lying) Pulse 76 Temp 97.7 F (36.5 C) (Oral) Resp 18 Wt 78.9 kg (174 lb) SpO2 96% BMI 27.25 kg/m Smoking Status Never General: Alert and comfortable, not in respiratory distress HEENT: Normocephalic,atraumatic head, no scleral icterus, no periorbital edema, moist mucous membranes. Neck: Supple, no LAD, Heart: Regular rhythm, S1 and S2 auscultated,ssm at apex Lungs: decreased breath sounds on left side no use of accessary muscles Abdomen: Soft, non-tender, non-distended, normoactive BS. Extremities: No lower extremity edema. Warm and dry, peripheral pulses are palpable Skin: No rashes, excoriations. No stasis dermatitis. Neuro: Alert, oriented x 3, able to move all extremities Dialysis acess RT TDC with dressing over it looks clean Relevant Data: Lab Results Component Value Date SODIUM 140 02/13/2025 POTASSIUM 3.6 02/13/2025 CHLORIDE 97 (L) 02/13/2025 CO2 31 02/13/2025 BUN 33 (H) 02/13/2025 CREATSERUM 7.16 (H) 02/13/2025 GLUCOSE 87 02/13/2025 Lab Results Component Value Date CALCIUM 7.5 (L) 02/13/2025 PHOSPHORUS 2.9 02/13/2025 Lab Results Component Value Date WBC 7.93 02/13/2025 HGB 7.3 (L) 02/13/2025 HCT 24.4 (L) 02/13/2025 PLATELET 139 (L) 02/13/2025 MCV 110.4 (H) 02/13/2025 Lab Results Component Value Date CREATSERUM 7.16 (H) 02/13/2025 CREATSERUM 9.09 (H) 12/19/2024 CREATSERUM 8.06 (H) 12/18/2024 CREATSERUM 2.06 (H) 08/07/2016 CREATSERUM 3.0 06/05/2016 CREATSERUM 2.41 (H) 06/01/2016 CREATSERUM 2.29 (H) 05/31/2016 CREATSERUM 0.77 11/25/2014 CREATSERUM 1.35 (H) 11/26/2013 CREATSERUM 1.17 (H) 05/07/2013 Lab Results Component Value Date SPGRVTYUR 1.024 09/12/2021 GLUCOSEURINE Negative 09/12/2021 BILIRUBINURI NEGATIVE 04/27/2012 KETONESURINE Negative 09/12/2021 BLOODURINE Large (A) 09/12/2021 NITRITESURIN Negative 09/12/2021 LEUKOCESTUR Small (A) 09/12/2021 WBCURINE 10-20 (A) 09/12/2021 RBCURINE >20 (A) 09/12/2021 BACTERIAURIN TRACE (A) 09/12/2021 Impressions: 74 yr old male with history of htn ,esrd on home hd ,history of AVR,afib,lymphoma admitted with progressive sob ,weakness found to have left pleural effusion Problem list: ESRD Left pleural effusion Recommendations: On HHD 4 times a week 3 hours dry weight 75.5 kg will dialyse today for 3 hours try 2 litres uf using 3 k bath Anemia transfuse if HB drops below 7 check iron studies if replete start aranesp 40 micrograms weekly BMD check po4 and ipth Hypocalcemia stable if po4 is above 5.5 start phoslo 667 mg 1 tab tid with meals Thank you for allowing [facility] to participate in the care of your patient. MARIA EUGENIA LANDRY M.D,ALEJANDRO Attending Nephrology Associated Order(s): IP CONSULT TO SURGERY - THORACIC THORACIC SURGERY CONSULT NOTE Patient Name: Christian Amador Admit Date: 02/13/2025 [facility] Hospital: LOS: 0 days Date of Evaluation: 02/13/2025 11:59 AM Reason for Consult / Chief Complaint: 74 yo transferred to [facility] for thoracic evaluation in setting of empyema ASSESSMENT: Christian Amador is a 74 y.o. male with extensive cardiac history, history of lymphoma, and ESRD on HD who presents with L pleural effusion concerning for empyema. PLAN: - recommend IR consult for pigtail chest tube placement - Patient is a poor surgical candidate recommend pulmonology consult for further recommendations after chest tube placement - recommend heparin bridge This plan was discussed with and approved by Attending MD Dr. Nash. Thank you for allowing us to participate in the care of your patient. Should you have any further questions please do not hesitate to contact the surgery consult team. Mindi Lozano MD HPI: Patient was having progressive weakness for the past week or so. Chronic cough possibly worsening, chronic SOB stable. Not on O2 at home. He presented to his PCP who heard crackles in LLL and prescribed levaquin. Patient presented to [facility] ED last night for progressive symptoms and was found to have L pleural effusion concerning for empyema. WBC 7.9 at OSH. He was [facility] for [facility] evaluation. No chest tube was placed. He denies fevers/chills. HISTORY: PAST MEDICAL HISTORY He has a past medical history of Anemia, Arrhythmia, Arthritis, Atrial flutter, Atrial tachycardia, BPH (benign prostatic hyperplasia), CAD (coronary artery disease), Cardiomyopathy, Congestive heart failure, unspecified, Essential hypertension, benign, GERD (gastroesophageal reflux disease), Gout, Hematochezia, Hematoma (03/2012, 04/2012), HTN (hypertension), benign, Hyperlipidemia, Hypothyroidism, Kidney stones, Leukocytosis, Liver disease, Lymphoma, Lymphoma, MIA (obstructive sleep apnea), Pacemaker, Rheumatic heart disease, S/P AVR (aortic valve replacement), S/P radiofrequency ablation operation for arrhythmia, Seizure (06/08), Septic shock, TIA (transient ischemic attack), and Vascular disease. He has no past medical history of Diabetes mellitus or Difficult intubation. PAST SURGICAL HISTORY His has a past surgical history that includes cardiac pacemaker placement (08/31/2003); cardiac pacemaker placement (10/20/2010); appendectomy; pr anes hrt pericrd sac&grt vsls w/internal investigator oxtj >1mo po; ep implant biventricular pacemaker total (08/07/2013); cardiac vein electrode placement for lv pacing (N/A, 08/07/2013); pacemaker electrode removal (08/07/2013); av node ablation (N/A, 02/26/2013); colonoscopy diagnostic (N/A, 03/20/2016); pacemaker electrode removal (N/A, 05/08/2016); insertion cvc tunneled (Left, 05/18/2016); insertion cvc tunneled (Right, 05/19/2016); cardiac vein electrode placement for lv pacing (N/A, 05/26/2016); pacemaker placement (N/A, 05/26/2016); removal cvc tunneled (Right, 07/07/2016); ess nasal diagnostic (Bilateral, 09/20/2021); ess sphenoid sinusotomy with removal tissue (Right, 09/20/2021); ess total ethmoidectomy (Right, 09/20/2021); placement probe for transesophageal echocardiography (N/A, 09/23/2021); insertion cvc tunneled (N/A, 10/03/2021); insertion cvc tunneled (N/A, 10/10/2021); egd diagnostic (06/2022); and upgrade generator pacemaker single to dual chamber system (N/A, 04/02/2024). Social History Tobacco Use Smoking status: Never Smokeless tobacco: Never Vaping Use Vaping status: Never Used Substance Use Topics Alcohol use: Never Drug use: No FAMILY HISTORY His family history includes Breast Cancer in his sister; Coronary Artery Disease in his brother and father; Diabetes in his mother, paternal aunt, paternal uncle, and sister; Heart Defect in his paternal uncle; Heart Disease - Other in his brother, father, paternal aunt, and paternal uncle; Heart Surgery in his brother and father; Myocardial Infarction in his paternal uncle and paternal uncle; Sudden Cardiac in his paternal uncle. He He indicated that his mother is . He indicated that his father is . He indicated that two of his three sisters are alive. He indicated that only one of his four brothers is alive. He indicated that the status of his paternal aunt is unknown. He indicated that one of his three paternal uncles is . ALLERGIES No Known Allergies Prior to Admission medications Medication Sig Start Date End Date Taking? Authorizing Provider Acetaminophen (TYLENOL PO) Take by mouth. Historical Provider ALPRAZolam 1 MG tablet Take 1 tablet by mouth at bedtime. 01/18/24 Historical Provider B Wrhxdoh-V-Ucekb Acid (NEPHRO-BALTAZAR PO) Take 1 tablet by mouth at bedtime. Historical Provider Cyclobenzaprine 10 MG tablet Take 1 tablet by mouth 2 times daily. Historical Provider Docusate Sodium (COLACE PO) Take by mouth 2 times daily. Historical Provider doxycycline hyclate 100 MG capsule Take 1 capsule by mouth 2 times daily. 12/12/22 Historical Provider fluconazole 200 MG tablet Take 1 tablet by mouth See admin instructions. Starting 10/21, take 2 tablets once per day through 10/30. Starting 10/31, take 1 tablet once per day Patient taking differently: Take 1 tablet by mouth daily. 10/20/21 Mike Mendoza MD Lactulose 10 GM/15ML Solution oral solution Take 15 mL by mouth 2 times daily. Historical Provider levothyroxine 75 MCG tablet Take 1 tablet by mouth every morning before breakfast. 10/21/21 Mike Mendoza MD Midodrine HCl 10 MG tablet Take 1 tablet by mouth. 1 Tablet Sunday, Sunday, Sunday 2 Tablets Sun And Sun06/25/23 Historical Provider pantoprazole [address] tablet DR Take 1 tablet by mouth daily. 10/21/21 Mike Mendoza MD rifAXIMin 550 MG tablet Take 1 tablet by mouth 2 times daily. 12/03/24 11/28/25 Vaishnavi Fry, Sensipar 30 MG tablet Take 1 tablet by mouth 3 times weekly. 10/01/24 Historical Provider Sucroferric Oxyhydroxide 500 MG Chew Tab Chew 1,000 mg 3 times daily with meals. Plus one tablet with snacks Historical Provider warfarin 2 MG tablet Take 1 tablet by mouth every evening at 6 PM. 03/06/24 Historical Provider REVIEW OF SYSTEMS: A full review of systems was preformed and was negative unless otherwise noted. General: Negative; Dermatological: Negative; Ophthalmic: Negative; ENT: Negative; Breast: negative; Gastrointestinal: Negative; Cardiac: Negative; Respiratory: Negative; Genito-Urinary: Negative. Endocrine: Negative; Musculoskeletal : Negative; Neurological: Negative; Psychological:Negative PHYSICAL EXAM: Vital Signs: Reviewed: BP 110/51 (BP Location: Right arm, BP Position: Lying) Pulse 76 Temp 97.7 F (36.5 C) (Oral) Resp 18 SpO2 96% Smoking Status Never , There is no height or weight on file to calculate BMI. Constitutional: Well-developed, well-nourished, in no distress. Skin/Wounds: Walsh, warm and dry Neurological: Awake, alert, follows commands, moves all extremities Lungs: Respiratory effort is normal, equal rise and fall of chest. On NC Heart: Regular rate and rhythm, peripheral pulses 2+, well perfused Abdomen: Soft, non-distended : Deferred Extremities: Movement of extremities to command DATA REVIEWED Medications, allergies, diagnostic studies and lab reports reviewed. VITAL SIGNS: INTAKE/OUTPUT: Temp: [97.7 F (36.5 C)] 97.7 F (36.5 C) Pulse (Heart Rate): [76] 76 Resp Rate: [18] 18 BP: (110)/(51) 110/51 O2 Sat (%): [96 %] 96 % No intake/output data recorded. WEIGHT/BMI: RESPIRATORY: Wt Readings from Last 2 Encounters: 12/18/24 79.2 kg (174 lb 8 oz) 10/22/24 78.9 kg (174 lb) There is no height or weight on file to calculate BMI. Oxygen Therapy O2 Sat (%): 96 % O2 Device: room air LABS: Lab Results Component Value Date RESULTCULT NO GROWTH DAY 5 OF 5 05/15/2016 RESULTCULT NO GROWTH DAY 5 OF 5 05/15/2016 DIAGNOSTIC RESULTS: Significant New Imaging/Radiological Studies: CT ANGIO ABDOMEN/PELVIS (OUTSIDE IMAGE) Result Date: 02/13/2025 Outside Imaging Study for Support of Clinical Care. This study was sent from an outside facility to [facility] for support of clinical care of the patient within the [facility] system. XR CHEST (OUTSIDE IMAGE) Result Date: 02/13/2025 Outside Imaging Study for Support of Clinical Care. This study was sent from an outside facility to [facility] for support of clinical care of the patient within the [facility] system. CT CHEST (OUTSIDE IMAGE) Result Date: 02/13/2025 Outside Imaging Study for Support of Clinical Care. This study was sent from an outside facility to [facility] for support of clinical care of the patient within the [facility] system. Cosigned by Galileo Nash MD at 02/18/2025 4:59 PM EDT documented in this encounter [facility] 03-03-2025 Consult note Associated Order (s): IP CONSULT TO INFECTIOUS DISEASE Images from the original note were not included. Infectious Disease Consult Note REQUESTING PHYSICIAN: Mel Aldana MD REASON FOR CONSULTATION: Pt with 1/2 positive blood cx MRSE, more likely contaminant but neph with concern about TDC site and want removed if c/f real bacteremia, appreciate eval HISTORY OF PRESENT ILLNESS: Christian Amador is a 75 y.o. male w h/o ESRD on HD, afib s/p AVN ablation and PPM, s/p AVR x3 c/b MRSA bacteremia on suppressive doxy, fungemia on chronic fluconazole, and MADRID cirrhosis who presented to the hospital on 02/13/2025 with fatigue and pleural effusion and found to have metapneumo vl course c/b GI bleeding. PT with bleeding around TDC site and blood cx from line for MRSE. Swabs of TDC site neg. REVIEW OF SYSTEMS: Constitutional: No fevers or chills Eyes: No vision changes Ears: No hearing changes Cardiovascular: No chest pain or palpitations Respiratory: No shortness of breath or cough Gastrointestinal: No abdominal pain, nausea/vomiting/constipation/diarr hea. Genitourinary: No urinary frequency or dysuria Musculoskeletal: No myalgia or arthralgia Skin: No rash Neurology: No paresthesias Hematology/Lymphatic: No edema CURRENT HOSPITALIZATION/LOS: Admit Date: 02/13/2025 [facility] LOS: 18 days MEDICAL HISTORY: Past Medical History: Diagnosis Date Anemia Arrhythmia Arthritis Atrial flutter Atrial tachycardia BPH (benign prostatic hyperplasia) CAD (coronary artery disease) Cardiomyopathy Congestive heart failure, unspecified Essential hypertension, benign GERD (gastroesophageal reflux disease) Gout Hematochezia Hematoma 03/2012, 04/2012 HTN (hypertension), benign Hyperlipidemia Hypothyroidism Kidney stones Leukocytosis Liver disease Lymphoma h/o chemo Lymphoma MIA (obstructive sleep apnea) Pacemaker Rheumatic heart disease S/P AVR (aortic valve replacement) mechanical S/P radiofrequency ablation operation for arrhythmia Seizure 06/08 Septic shock TIA (transient ischemic attack) Vascular disease SURGICAL HISTORY: Past Surgical History: Procedure Laterality Date UPGRADE GENERATOR PACEMAKER SINGLE TO DUAL CHAMBER SYSTEM N/A 04/02/2024 Laterality: N/A; Surgeon: Ronnie Ferrari MD; Location: [facility] EP EGD DIAGNOSTIC 06/2022 INSERTION CVC TUNNELED N/A 10/10/2021 Laterality: N/A; Surgeon: Remy Ferrer MD; Location: [facility] INTERVENTIONAL RADIOLOGY (VIR) INSERTION CVC TUNNELED N/A 10/03/2021 Laterality: N/A; Surgeon: Kaylin Duran II, MD; Location: [facility] INTERVENTIONAL RADIOLOGY (VIR) PLACEMENT PROBE FOR TRANSESOPHAGEAL ECHOCARDIOGRAPHY N/A 09/23/2021 Laterality: N/A; Surgeon: Sadia Nieto MD; Location: [facility] MAIN OR ESS NASAL DIAGNOSTIC Bilateral 09/20/2021 Laterality: Bilateral; Surgeon: You Wise MD; [facility] OR ESS SPHENOID SINUSOTOMY WITH REMOVAL TISSUE Right 09/20/2021 Laterality: Right; Surgeon: You Wise MD; [facility] MA[facility] OR ESS TOTAL ETHMOIDECTOMY Right 09/20/2021 Laterality: Right; Surgeon: You Wise MD; Location: [facility] MAIN OR REMOVAL CVC TUNNELED Right 07/07/2016 Laterality: Right; Surgeon: Kaylin Grider MD; Location: [facility] INTERVENTIONAL RADIOLOGY (VIR) CARDIAC VEIN ELECTRODE PLACEMENT FOR LV PACING N/A 05/26/2016 Laterality: N/A; Surgeon: Yi Cody MD; Location: [facility] EP PACEMAKER PLACEMENT N/A 05/26/2016 Laterality: N/A; Surgeon: Yi Cody MD; Location: [facility] EP INSERTION CVC TUNNELED Right 05/19/2016 Laterality: Right; Surgeon: Kaylin Grider MD; Location: [facility] INTERVENTIONAL RADIOLOGY (VIR) INSERTION CVC TUNNELED Left 05/18/2016 Laterality: Left; Surgeon: Kaylin Grider MD; Location: [facility] INTERVENTIONAL RADIOLOGY (VIR) [...] Versa CARDIAC PACEMAKER PLACEMENT 08/31/2003 Implant: Medtronic [id number] [place] [address] APPENDECTOMY AR ANES HRT PERICRD SAC&GRT 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 FAMILY HISTORY: Family History Problem Relation Age of Onset Diabetes Mother Heart Surgery Father CABG x5 Heart Disease - Other Father Coronary Artery Disease Father Breast Cancer Sister Diabetes Sister Heart Surgery Brother CABG x3 Heart Disease - Other Brother Coronary Artery Disease Brother Heart Disease - Other Paternal Aunt Diabetes Paternal Aunt Heart Disease - Other Paternal Uncle Diabetes Paternal Uncle Myocardial Infarction Paternal Uncle Heart Defect Paternal Uncle all Paternal uncles with heart problems Sudden Cardiac Paternal Uncle Myocardial Infarction Paternal Uncle SOCIAL HISTORY: Social History Tobacco Use Smoking status: Never Smokeless tobacco: Never Vaping Use Vaping status: Never Used Substance Use Topics Alcohol use: Never Drug use: No ALLERGIES: No Known Allergies PRIOR TO ARRIVAL MEDS: Medications Prior to Admission Medication Sig Dispense Refill Last Dose/Taking Acetaminophen (TYLENOL PO) Take by mouth. ALPRAZolam 1 MG tablet Take 1 tablet by mouth at bedtime. B Heijqqi-F-Qjkxd Acid (NEPHRO-BALTAZAR PO) Take 1 tablet by mouth at bedtime. Cyclobenzaprine 10 MG tablet Take 1 tablet by mouth 2 times daily. doxycycline hyclate 100 MG capsule Take 1 capsule by mouth 2 times daily. fluconazole 200 MG tablet Take 1 tablet by mouth See admin instructions. Starting 10/21, take 2 tablets once per day through 10/30. Starting 10/31, take 1 tablet once per day (Patient taking differently: Take 1 tablet by mouth daily.) 40 tablet 0 Lactulose 10 GM/15ML Solution oral solution Take 15 mL by mouth 2 times daily. levothyroxine 75 MCG tablet Take 1 tablet by mouth every morning before breakfast. 30 tablet 0 Midodrine HCl 10 MG tablet Take 1 tablet by mouth. 1 Tablet Sunday, Sunday, Sunday 2 Tablets Sun And Sun pantoprazole [address] tablet DR Take 1 tablet by mouth daily. 30 tablet 0 rifAXIMin 550 MG tablet Take 1 tablet by mouth 2 times daily. 60 tablet 11 Sensipar 30 MG tablet Take 1 tablet by mouth 3 times weekly. warfarin 2 MG tablet Take 1 tablet by mouth every evening at 6 PM. Scheduled Meds: ALPRAZolam 1 mg Oral QHS [Held by provider] calcium acetate - Phos Binder 667 mg Oral TID w/meals Cinacalcet 30 mg Oral Once per day on Sunday Cyclobenzaprine 10 mg Oral Q12H darbepoetin 60 mcg Subcutaneous Q7 days Doxycycline monohydrate 100 mg Oral Q12H Fluconazole 200 mg Oral QHS Lactulose 10 g Oral BID Levothyroxine 75 mcg Oral Before BKF Midodrine HCl 10 mg Oral Once per day on Sunday Pantoprazole 40 mg Oral BID vitamin C/B complex/folic acid (VIRT-CAPS) 1 capsule Oral Daily Warfarin 5 mg Oral Daily early evening Continuous Infusions: heparin 7 Units/kg/hr (03/03/25 06) PRN Meds:Albuterol, hydroxyzine, Melatonin OBJECTIVE FINDINGS: Vital Signs (24hrs): Temp: [97.4 F (36.3 C)-98.2 F (36.8 C)] 97.8 F (36.6 C) Pulse (Heart Rate): [69-139] 72 Resp Rate: [16-37] 16 BP: (81-116)/(44-56) 116/56 O2 Sat (%): [95 %-100 %] 95 % Lines/Drains/Airways/Wounds: Patient Lines/Drains/Airways Status Active Lines, Drains, Airways, & Wound Overview Name Placement date Placement time Site Days Tunneled Central Line - Double Lumen 10/10/21 1116 red white internal jugular vein, right other (see comments) 10/10/21 1116 -- 1239 Peripheral IV Line - Single Lumen 02/14/25 1840 forearm, posterior, right 22 gauge 02/14/25 1840 -- 16 Wound Skin Tear 02/03/23 1515 Midline;Posterior Buttocks 02/03/23 1515 Buttocks 758 Wound Surgical 02/13/23 0820 incision Left Back 02/13/23 0820 Back 749 PHYSICAL EXAM: General: Laying in bed, no apparent distress. HEENT: Pupils equal and reactive, extraocular muscles intact. Mucous membranes are moist. Neck: Supple, no lymphadenopathy. CV: S1 and S2 normal, no murmurs, clicks, gallops or rubs. Regular rate and rhythm. Pulm: Chest is clear, no wheezing or rales. Normal symmetric air entry throughout both lung chavez. No chest wall deformities or tenderness. Trunk/Abd: The abdomen is soft without tenderness, guarding, mass, rebound or organomegaly. Bowel sounds are normal. Ext & Skin: TDC site; Neuro: Patient is alert and oriented times three. DIAGNOSTIC RESULTS/PROCEDURES: WBC/Hgb/Hct/Plts: 8.86/10.9/35.1/288 (03/03 517) Bun/Creat/Cl/CO2/Glucose: 24/5.02/97/25/89 (03/03 517) Na/K+/Phos/Mg/Ca: 135/4.6/4.5/1.9/9.0 (03/03 0517) Lab Results Component Value Date SEDRATE 51 06/05/2016 Lab Results Component Value Date CRP 26.1 06/05/2016 Cultures: Reviewed Cx TDC site neg Blood cx line + MRSE Radiology/Images: Reviewed TTE 4-1: Mildly dilated left ventricle with mild increase in septal wall wall thickness (max 1.2 cm). Normal systolic function, LVEF 55-60%, with abnormal septal motion. Diastolic function could not be assessed d/t MVr. Normal right ventricular size with low normal systolic function. S/p mitral valve repair with an annuloplasty ring & mild residual, posteriorly directed, regurgitation (EROA 0.15 cm2). MV gradients of 12/4 mmHg obtained at HR of 70 bpm. Prosthesis in aortic position, appears well seated. Disk mobility could not be assessed. No evidence of dysfunction on Doppler assessment (Vmax 1.9, PG 15/9 mmHg, DI Vmax 0.27, DI VTI 0.33) with mild regurgitation. Mild to moderate tricuspid regurgitation with moderate RVSP elevation, estimated at 55 mmHg. Mild dilation of the visualized segments of the ascending aorta (3.8 cm). No evidence of intracardiac shunting on agitated saline or color Doppler study. ASSESSMENT: Line cx + MRSE, swabs insertion site neg. 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 pMV with PPM Cirrhosis RECOMMENDATIONS: Hold any additional abx for now. Repeat line and peripheral blood cx. Please ensure sterile technique in obtaining blood cx. If neg would conclude the initial cx and contaminant. If positive start vanco and remove line and get DIMITRI. ID team [id number] to follow. Garcia Bay MD, PhD [facility]fect[facility] Associated Order(s): IP CONSULT TO GASTROENTEROLOGY Images from the original note were not included. HEPATOLOGY INITIAL CONSULT NOTE Reason for Consultation: anemia and hematochezia HISTORY OF PRESENT ILLNESS: Christian Amador is a 74 y.o. 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 Follows with Dr. Fry outpatient. GI consulted for BRBPR, anemia. Endorses intermittent rectal bleeding (describes as blood mixed with stool) which he has noticed in the past and attributed to his known external hemorrhoids. Single episode of overt hematochezia while he was at OSH along with single episode of nonbloody emesis. Denies hematemesis, CGE, melena. Also noticed worsening SOB on exertion so was seen by PCP who ordered a CXR that found large pleural effusion so was advised to go to ED. At baseline sleeps on several pillows at home or elevated HOB. OSH CT Chest showing moderate sized Left pleural fluid collection most compatible with empyema. Reticoulonodular groundglass opacities thorughout bilateral lungs. They did not perform thoracentesis or place chest tube. OSH CTA A/P for GI bleeding which showed no acute GI bleed but multiple small L adrenal nodules, markedly enlarged prostate. OSH notable for Hb 8.1, WBC 7.9, INR 1.4. Most recent vitals: stable, on 2L NC. Pertinent labs: WBC 8.5, Hgb 7.4 (baseline 11-12), PLT 157, INR 1.7. Evaluated by pulmonology and thoracic surgery for pleural effusion-- neither plan intervention given apparent chronicity of collection. Decompensated [facility] cirrhosis history - HE: rifaximin 550mg bid and lactulose - Varices: previously deferred EV screening given his medical conditions, need for AC and bridging therapy if stopped, etc. He would not be an ideal candidate for band ligation given need for AC and has not tolerated beta blockers given hypotension. - Renal: on HD - Ascites: n/a - SBP: n/a - HCC: most recent OSH RUQUS normal (12/31/24); AFP 2.6 (10/2024) Anticoagulation/Antiplatelet: warfarin, bridging over with hep gtt NSAIDs: denies Imaging: OSH imaging as above [facility] over read of CT Chest 1. Left pleural effusion with dense pleural thickening suggestive of empyema. 2. Asymmetric patches of groundglass attenuation bilaterally, suggestive of pneumonia. Prior endoscopy: [facility] colonoscopy (07/2020) - Non-bleeding external and internal hemorrhoids. - Diverticulosis in the sigmoid colon, in the descending colon, in the transverse colon and in the ascending colon. - Erythematous mucosa in the ascending colon. Biopsied. Right colon, biopsy - Colonic mucosa with no significant diagnostic alteration. OSH EGD 07/17/2022 Blood products: n/a Most recent TTE: EF 45-50%, RVSP normal PAST MEDICAL HISTORY: PAST MEDICAL HISTORY Past Medical History: Diagnosis Date Anemia Arrhythmia Arthritis Atrial flutter Atrial tachycardia BPH (benign prostatic hyperplasia) CAD (coronary artery disease) Cardiomyopathy Congestive heart failure, unspecified Essential hypertension, benign GERD (gastroesophageal reflux disease) Gout Hematochezia Hematoma 03/2012, 04/2012 HTN (hypertension), benign Hyperlipidemia Hypothyroidism Kidney stones Leukocytosis Liver disease Lymphoma h/o chemo Lymphoma MIA (obstructive sleep apnea) Pacemaker Rheumatic heart disease S/P AVR (aortic valve replacement) mechanical S/P radiofrequency ablation operation for arrhythmia Seizure 06/08 Septic shock TIA (transient ischemic attack) Vascular disease PAST SURGICAL HISTORY Past Surgical History: Procedure Laterality Date UPGRADE GENERATOR PACEMAKER SINGLE TO DUAL CHAMBER SYSTEM N/A 04/02/2024 Laterality: N/A; Surgeon: Ronnie Ferrari MD; Location: [facility] EP EGD DIAGNOSTIC 06/2022 INSERTION CVC TUNNELED N/A 10/10/2021 Laterality: N/A; Surgeon: Remy Ferrer MD; Location: [facility] INTERVENTIONAL RADIOLOGY (VIR) INSERTION CVC TUNNELED N/A 10/03/2021 Laterality: N/A; Surgeon: Kaylin Duran II, MD; Location: [facility] INTERVENTIONAL RADIOLOGY (VIR) PLACEMENT PROBE FOR TRANSESOPHAGEAL ECHOCARDIOGRAPHY N/A 09/23/2021 Laterality: N/A; Surgeon: Sadia Nieto MD; Location: [facility] MAIN OR ESS NASAL DIAGNOSTIC Bilateral 09/20/2021 Laterality: Bilateral; Surgeon: You Wise MD; Location: [facility] MAIN OR ESS SPHENOID SINUSOTOMY WITH REMOVAL TISSUE Right 09/20/2021 Laterality: Right; Surgeon: You Wise MD; Location: [facility] MAIN OR ESS TOTAL ETHMOIDECTOMY Right 09/20/2021 Laterality: Right; Surgeon: You Wise MD; Location: [facility] MAIN OR REMOVAL CVC TUNNELED Right 07/07/2016 Laterality: Right; Surgeon: Kaylin Grider MD; Location: [facility] INTERVENTIONAL RADIOLOGY (VIR) CARDIAC VEIN ELECTRODE PLACEMENT FOR LV PACING N/A 05/26/2016 Laterality: N/A; Surgeon: Yi Cody MD; Location: [facility] EP PACEMAKER PLACEMENT N/A 05/26/2016 Laterality: N/A; Surgeon: Yi Cody MD; Location: [facility] EP INSERTION CVC TUNNELED Right 05/19/2016 Laterality: Right; Surgeon: Kaylin Grider MD; Location: [facility] INTERVENTIONAL RADIOLOGY (VIR) INSERTION CVC TUNNELED Left 05/18/2016 Laterality: Left; Surgeon: Kaylin Grider MD; Location: [facility] INTERVENTIONAL RADIOLOGY (VIR) [...] Versa CARDIAC PACEMAKER PLACEMENT 08/31/2003 Implant: [employer] [id number] [place] [address] APPENDECTOMY AR ANES HRT PERICRD SAC&GRT 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 He has never used smokeless tobacco. He reports that he does not drink alcohol and does not use drugs. FAMILY HISTORY Family History Problem Relation Age of Onset Diabetes Mother Heart Surgery Father CABG x5 Heart Disease - Other Father Coronary Artery Disease Father Breast Cancer Sister Diabetes Sister Heart Surgery Brother CABG x3 Heart Disease - Other Brother Coronary Artery Disease Brother Heart Disease - Other Paternal Aunt Diabetes Paternal Aunt Heart Disease - Other Paternal Uncle Diabetes Paternal Uncle Myocardial Infarction Paternal Uncle Heart Defect Paternal Uncle all Paternal uncles with heart problems Sudden Cardiac Paternal Uncle Myocardial Infarction Paternal Uncle REVIEW OF SYSTEMS: 10-point ROS negative unless otherwise noted in HPI. PHYSICAL EXAM: Temp: [97.3 F (36.3 C)-98.7 F (37.1 C)] 98.1 F (36.7 C) Pulse (Heart Rate): [69-81] 81 Resp Rate: [16-30] 18 BP: (93-115)/(50-83) 107/53 O2 Sat (%): [92 %-100 %] 98 % Weight: [78.9 kg (174 lb)] 78.9 kg (174 lb) Wt Readings from Last 3 Encounters: 02/13/25 78.9 kg (174 lb) 12/18/24 79.2 kg (174 lb 8 oz) 10/22/24 78.9 kg (174 lb) Gen: AAO x 3, NAD Card: RRR Pulm: normal WOB Abd: soft, NT, ND. No ascites. Ext: no edema Neuro: no focal deficits or asterixis LABS: Reviewed. IMAGING/STUDIES: All relevant imaging and procedures were reviewed. MELD 3.0: 24 at 02/14/2025 12:26 AM MELD-Na: 26 at 02/14/2025 12:26 AM Calculated from: Serum Creatinine: 4.06 mg/dL (Using max of 3 mg/dL) at 02/14/2025 12:26 AM Serum Sodium: 136 mmol/L at 02/14/2025 12:26 AM Total Bilirubin: 0.7 mg/dL (Using min of 1 mg/dL) at 02/14/2025 12:26 AM Serum Albumin: 3.4 g/dL at 02/14/2025 12:26 AM INR(ratio): 1.7 at 02/14/2025 12:26 AM Age at listing (hypothetical): 74 years Sex: Male at 02/14/2025 12:26 AM ASSESSMENT: Christian Amador is a 74 y.o. 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 Follows with Dr. Fry outpatient. GI consulted for BRBPR, anemia. His BRBPR is likely outlet bleeding from known hemorrhoids. However he has had a large drop in hemoglobin from baseline in the span of 2 months and it seems unlikely that this is entirely attributable to hemorrhoids. 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 His ESRD also predisposes to formation of AVMs which can have a similar effect. RECOMMENDATIONS: - Plan for EGD and colonoscopy, earliest possible on 02/16. - Start prep on 02/15, instructions below. Make NPO at 0001 on 02/16 - Please hold heparin gtt starting at midnight prior to procedure - IV PPI 40mg bid - 2 large bore IV (18 gauge or more) - Trend CBC, transfuse for goal Hgb > 7 - Ceftriaxone as part of UGIB prophylaxis in cirrhosis - Check CBC, coags, and BMP in the morning of procedure. Please ensure that hemoglobin is >7, platelets >50 and INR <1.6 - Endoscopy may need to be rescheduled reasons including but not limited to the following: urgent / emergent procedures, change in clinic status (example - respiratory decompensation overnight, hypotension, etc), echocardiogram ordered but not complete prior to endoscopy or at the discretion of anesthesia staff Prep instructions Use colonoscopy order set which includes diet, prep and labs. - If patient is unable to tolerate the prep, can consider placing an NG tube to help with administration. - appropriate stool for colonoscopy should be clear or light yellow; there should be NO brown stool; there should be no solid or semi-solid stool components; the floor RN should assist in assessing stool for appropriateness - failure of adequate bowel prep and confirmation may result in delay of patient's colonoscopy Decompensated [facility] cirrhosis history - HE: continue rifaximin 550mg bid and lactulose - Varices: previously deferred EV screening given his medical conditions, need for AC and bridging therapy if stopped, etc. He would not be an ideal candidate for band ligation given need for AC and has not tolerated beta blockers given hypotension. - Renal: on HD - Ascites: n/a - SBP: n/a - HCC: most recent OSH RUQUS normal (12/31/24); AFP 2.6 (10/2024) This consult was seen and discussed with Dr. Marcos, the attending physician. We will continue to follow. Elie Sanches MD Fellow, Gastroenterology Cosigned by Fernanda Marcos MD at 02/14/2025 1:58 PM EDT Associated attestation - Fernanda Marcos MD - 02/14/2025 1:58 PM EDT ATTENDING STATEMENT: Patient's history and physical exam reviewed with the fellow. All pertinent laboratory data, imaging and procedures have been reviewed. I have reviewed the fellow's documentation and have made appropriate changes. I agree with the fellow's dictated impression and plan as outlined below. In summary, Christian Amador is a 74 y.o.male with [facility] cirrhosis c/b HE, rheumatic heart disease s/p MVR on warfarin, ESRD on HD who is admitted with rectal bleeding and acute on chronic anemia. Patient reports intermittent rectal bleeding - bright red blood mixed with stool. Notes that stool is chronically dark. Hgb is ~7 here, previous baseline of 11-12 as recently as 11/2024. Has not had recent endoscopic evaluation given need for uninterrupted anticoagulation. Now, given concern for blood loss and ability to bridge warfarin as an inpatient, reasonable to pursue both EGD (history of GAVE) and colonoscopy. Prep instructions as noted by Dr. Sanches. Warfarin should be held (with heparin gtt continued). Please ensure BID lactulose is continued. Please contact the hepatology consult service with additional questions and concerns. Fernanda Marcos MD Guidance Director of Internal Medicine Division of Gastroenterology, Hepatology, and Nutrition Pager: [phone] Associated Order(s): IP CONSULT TO PULMONOLOGY Images from the original note were not included. Pulmonary/Critical Care Medicine Inpatient Consultation Reason for Consultation: 74 yo transferred to [facility] for L pleural fluid collection concerning for empyema. Thoracic recommending pulm consult Requesting Physician: Nayeli Casillas MD Outpatient Pulmonary Physician: none HPI: Christian Amador is a 74 y.o. male w/PMHx of non-hodgkin's lymphoma s/p therapy, HTN, ESRD on HD, cardiomyopathy s/p PPM, BPH, CAD, s/p mechanical AVR on warfarin, MRSA bacteremia on suppressive antibiotics, fungemia on suppressive antifungals who presented on 02/13/2025 with from an OSH for evaluation of a pleural effusion. He originally presented to a hospital in [place], [place] with subacute worsening of chronic weakness over the course of about 1.5-3 weeks. Prior to this, he was able to perform ADLs and walk about half a city block: now, he can barely sit on the side of the bed without significant difficulty. He has a chronic dry cough since 2010 that has worsened over the last 1.5-3wks and is now productive of greenish sputum. His had increased cough over this time as well. He denies fever, chills, chest pain, rigors. He notes a history of chronic dyspnea for an unspecified amount of time, but at least 1 year. As above, he is unable to walk more than half a block at a time without feeling short of breath. Relevant Prior Pulmonary History: Chronic left pleural effusion since at least 2020. Previously exudative in 2022. Chest tube placed in 2022 without significant resolution of effusion. Never smoker. Lives with 1 cat and 1 dog, no birds. He has minimal workplace exposures. Never in the or [facility]. No history of lung cancer. No history of asthma. ROS: Pertinent positives and negatives as per HPI. All other systems were reviewed and negative. Past Medical, Surgical, Family & Social History: Past Medical History: Diagnosis Date Anemia Arrhythmia Arthritis Atrial flutter Atrial tachycardia BPH (benign prostatic hyperplasia) CAD (coronary artery disease) Cardiomyopathy Congestive heart failure, unspecified Essential hypertension, benign GERD (gastroesophageal reflux disease) Gout Hematochezia Hematoma 03/2012, 04/2012 HTN (hypertension), benign Hyperlipidemia Hypothyroidism Kidney stones Leukocytosis Liver disease Lymphoma h/o chemo Lymphoma MIA (obstructive sleep apnea) Pacemaker Rheumatic heart disease S/P AVR (aortic valve replacement) mechanical S/P radiofrequency ablation operation for arrhythmia Seizure 06/08 Septic shock TIA (transient ischemic attack) Vascular disease Past Surgical History: Procedure Laterality Date UPGRADE GENERATOR PACEMAKER SINGLE TO DUAL CHAMBER SYSTEM N/A 04/02/2024 Laterality: N/A; Surgeon: Ronnie Ferrari MD; Location: [facility] EP EGD DIAGNOSTIC 06/2022 INSERTION CVC TUNNELED N/A 10/10/2021 Laterality: N/A; Surgeon: Remy Ferrer MD; Location: [facility] INTERVENTIONAL RADIOLOGY (VIR) INSERTION CVC TUNNELED N/A 10/03/2021 Laterality: N/A; Surgeon: Kaylin Duran II, MD; Location: [facility] INTERVENTIONAL RADIOLOGY (VIR) PLACEMENT PROBE FOR TRANSESOPHAGEAL ECHOCARDIOGRAPHY N/A 09/23/2021 Laterality: N/A; Surgeon: Sadia Nieto MD; Location: [facility] MAIN OR ESS NASAL DIAGNOSTIC Bilateral 09/20/2021 Laterality: Bilateral; Surgeon: You Wise MD; Location: [facility] MAIN OR ESS SPHENOID SINUSOTOMY WITH REMOVAL TISSUE Right 09/20/2021 Laterality: Right; Surgeon: You Wise MD; Location: [facility] MAIN OR ESS TOTAL ETHMOIDECTOMY Right 09/20/2021 Laterality: Right; Surgeon: Yuo Wise MD; Location: [facility] MAIN OR REMOVAL CVC TUNNELED Right 07/07/2016 Laterality: Right; Surgeon: Kaylin Grider MD; Location: [facility] INTERVENTIONAL RADIOLOGY (VIR) CARDIAC VEIN ELECTRODE PLACEMENT FOR LV PACING N/A 05/26/2016 Laterality: N/A; Surgeon: Yi Cody MD; Location: [facility] EP PACEMAKER PLACEMENT N/A 05/26/2016 Laterality: N/A; Surgeon: Yi Cody MD; Location: [facility] EP INSERTION CVC TUNNELED Right 05/19/2016 Laterality: Right; Surgeon: Kaylin Grider MD; Location: [facility] INTERVENTIONAL RADIOLOGY (VIR) INSERTION CVC TUNNELED Left 05/18/2016 Laterality: Left; Surgeon: Kaylin Grider MD; Location: [facility] INTERVENTIONAL RADIOLOGY (VIR) PACEMAKER ELECTRODE REMOVAL [...] Vers[employer] CARDIAC PACEMAKER PLACEMENT 08/31/2003 Implant: [employer] [id number] [place] [address] APPENDECTOMY AR ANES HRT PERICRD SAC&GRT 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 Family History Problem Relation Age of Onset Diabetes Mother Heart Surgery Father CABG x5 Heart Disease - Other Father Coronary Artery Disease Father Breast Cancer Sister Diabetes Sister Heart Surgery Brother CABG x3 Heart Disease - Other Brother Coronary Artery Disease Brother Heart Disease - Other Paternal Aunt Diabetes Paternal Aunt Heart Disease - Other Paternal Uncle Diabetes Paternal Uncle Myocardial Infarction Paternal Uncle Heart Defect Paternal Uncle all Paternal uncles with heart problems Sudden Cardiac Paternal Uncle Myocardial Infarction Paternal Uncle Social History Tobacco Use Smoking status: Never Smokeless tobacco: Never Vaping Use Vaping status: Never Used Substance Use Topics Alcohol use: Never Drug use: No Allergies & Medications: No Known Allergies Scheduled Medications: ALPRAZolam 1 mg Oral QHS calcium acetate - Phos Binder 667 mg Oral TID w/meals Cinacalcet 30 mg Oral Once per day on Sunday Cyclobenzaprine 10 mg Oral Q12H Doxycycline monohydrate 100 mg Oral Q12H Fluconazole 200 mg Oral Daily Lactulose 10 g Oral Daily [START ON 02/14/2025] Levothyroxine 75 mcg Oral Before BKF [START ON 02/16/2025] Midodrine HCl 10 mg Oral Once per day on Sunday Pantoprazole 40 mg Oral Daily [Held by provider] warfarin 2 mg Oral Once per day on Sunday And [Held by provider] Warfarin 1 mg Oral Once per day on Sunday Continuous Infusions: PRN Medications:Melatonin Objective Findings: Physical Exam: Temp: [97.7 F (36.5 C)] 97.7 F (36.5 C) Pulse (Heart Rate): [76] 76 Resp Rate: [18] 18 BP: (110)/(51) 110/51 O2 Sat (%): [96 %] 96 % Weight: [78.9 kg (174 lb)] 78.9 kg (174 lb) GEN: deconditioned elderly gentleman, NAD HEENT: mucosa moist, pupils equal and reactive to light, slow speech, hard of hearing RESP: normal inspiratory effort, bilateral polyphonic expiratory wheezing in most lung chavez, inspiratory crackles in bilateral lower windows CV: RRR, no m/g/r. Very prominent S2, loudest over LUSB. GI: soft, NT, ND, MSK: no gross deformities EXT: no lower extremity edema SKIN: no overt clubbing, warm, dry NEURO: AxOx3, no gross motor deficits Wt Readings from Last 10 Encounters: 02/13/25 78.9 kg (174 lb) 12/18/24 79.2 kg (174 lb 8 oz) 10/22/24 78.9 kg (174 lb) 04/16/24 (P) 78.9 kg (174 lb) 04/02/24 76.5 kg (168 lb 10.4 oz) 03/24/24 77.1 kg (169 lb 15.6 oz) 12/05/23 77.1 kg (170 lb) 07/13/23 79.4 kg (175 lb) 02/12/23 74.4 kg (164 lb 0.4 oz) 01/15/23 79.4 kg (175 lb) Lab Data: WBC/Hgb/Hct/Plts: 7.93/7.3/24.4/139 (02/13 1150) Na/K+/Phos/Mg/Ca: 140/3.6/2.9/1.8/7.5 (02/13 1150) Bun/Creat/Cl/CO2/Glucose: 33/7.16/97/31/87 (02/13 1150) Ptt/Pt/Inr: --/20.0/1.7 (02/13 1150) Relevant Microbiologic Data: Lab Results Component Value Date BALIMPRESSIO 12/12/2010 (NOTE) Cellular specimen comprised of alveolar macrophages and rare neutrophils. No microorganisms are seen. Moderare red blood cells. Review Of Tests and Records: CXR: 02/12/2025 Comparison to 02/05/[address]: 02/13/2025 on top, 02/03/2023 on bottom Prior Echo: 03/24/2024 Left Ventricle: Chamber size is mildly enlarged. Increased wall thickness. Mild concentric hypertrophy. Global hypokinesis. Abnormal septal motion consistent with right ventricular pacing. Ejection fraction is mildly reduced (45 - 50%). Unable to assess diastolic function. Right Ventricle: Chamber size is normal. Systolic function is normal. Device wire is present. Left Atrium: Chamber size is enlarged. Right Atrium: Chamber size is normal. A device wire is present. Aortic Valve: [address] [place] mechanical valve. Stable appearing. Mitral Valve: Moderate anterior and posterior leaflet thickening. Leaflet mobility is restricted. A prosthetic 28 mm Brady annular ring is present. Tricuspid Valve: Mild regurgitation. Estimated right ventricular systolic pressure is 36 mmHg. Pulmonary artery/right heart systolic pressure is elevated. (Mild) Comment: Limited Study. Technically difficult study. I have personally reviewed and interpreted the above imaging studies with the pulmonary/critical care attending. Impression & Recommendations: 74yo male with a notable pmh of lymphoma s/p chemotherapy, numerous cardiac surgeries, ESRD on HD, MADRID cirrhosis who presented for evaluation of a pleural effusion from an OSH. This pleural effusion is chronic and most likely secondary to a previous cardiac surgery and does not likely represent an active empyema or acute process. Impression: Chronic Left Pleural Effusion Etiology is possibly a prior cardiac surgery given the exudative, but noninfected and nonmalignant nature of the effusion in 2022. Unlikely to represent an acute infection like empyema. He has few symptoms of intrapleural sepsis and the effusion is nearly identical to the previous effusion Remarkably similar in size and character as 202. There is a chance the effusion is contributing to his chronic dyspnea. 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 At this time, definitive management of the effusion would require VATS due to the chronic nature and thickened pleural rinds that would not respond to chest tube drainage. Increased Cough and Sputum Production Unclear etiology, but a low level of bacterial or viral infection may be present. Recommendations: Infectious work up with lower respiratory culture, RVP, urine strep and legionella antigens It is reasonable to cover for CAP. Ultimate choice of antibiotics per primary. We do not feel a chest tube or thoracentesis is warranted at this time: the effusion is chronic and stable appearing compared to 2023 and we have very little concern for intrapleural sepsis at this time. Standard bronchopulmonary hygiene with IS, PEP, frequent ambulation (if unable to ambulate, frequent up to chair and PT/OT) Given wheezing on exam, recommend prn albuterol or duoneb nebulizers Thank you for this consult. Please page with additional questions or concerns. Patient was seen and discussed with the pulmonary consult attending. All recommendations are preliminary until cosigned by the attending. Layo Steward MD Internal Medicine PGY-2 [facility] Pulmonary Consults Cosigned by Israel Kemp MD at 02/13/2025 9:22 PM EDT Associated attestation - Israel Kemp MD - 02/13/2025 9:22 PM EDT Pulmonary/Critical Care Staff. I personally interviewed and examined this patient and discussed the case with the resident. I reviewed the history and exam detailed in the note. I agree with the medical decision making, assessment and plan. The patient has a chronic left pleural effusion dating back to at least 2020 with evidence of loculation since 2022. No significant change in appearance of the effusion now compared to January 2023. Attempts at drainage of the effusion and improvement in the pleural space were attempted in 2022 with a pigtail catheter. There was no benefit then. I see no reason to repeat the procedure now. It is not likely that this chronic pleural effusion is contributing to the patient's current symptoms of weakness. It could be contributing to underlying dyspnea and respiratory insufficiency due to restriction of left lung. However, this would require VATS to address which carries significant morbidity in this patient. The patient does have a productive cough and would check a sputum culture. Israel Kemp MD assisted living director Division of Pulmonary Medicine, Critical Care and Sleep Dept of Internal Medicine [facility] Associated Order(s): IP CONSULT TO INTERVENTIONAL RADIOLOGY Interventional Radiology Consult Note [facility] evaporator supervisor [id number] - [facility] evaporator supervisor [id number] PATIENT: Mr. Christian Amador Admission Date: 02/13/2025 Requesting Provider/Service: Fernanda Parra MD HPI: Christian Amador is a 74 y.o. male with HTN, ESRD on dialysis, lymphoma s/p chemotherapy, who presented with worsening cough, was found to have left lung loculated effusion. Reason for Consult: 74 yo transferred to [facility] for L pleural fluid collection concerning for empyema. Thoracic recommending pulm consult Currently on Blood Thinner: Warfarin, currently being held Sedation Anticipated: Moderate Diet: DIET LIVER - VERY LOW SODIUM Code Status: Full Code Pertinent Labs: Lab Results Component Value Date/Time INR 1.7 (H) 02/13/2025 11:50 AM INR 2.6 (H) 06/01/2016 04:13 AM PLATELET 139 (L) 02/13/2025 11:50 AM PLATELET 196 08/07/2016 09:38 AM PLATELET 281 06/05/2016 12:00 AM HGB 7.3 (L) 02/13/2025 11:50 AM HGB 9.8 (L) 08/07/2016 09:38 AM HGB 9.3 06/05/2016 12:00 AM GFR 7 (L) 02/13/2025 11:50 AM GFR 34 (L) 10/20/2021 05:52 AM GFR 32 (L) 08/07/2016 09:38 AM No Known Allergies Contrast Allergy: No Current Medications: ALPRAZolam 1 mg Oral QHS calcium acetate - Phos Binder 667 mg Oral TID w/meals Cinacalcet 30 mg Oral Once per day on Sunday Cyclobenzaprine 10 mg Oral Q12H Doxycycline monohydrate 100 mg Oral Q12H Fluconazole 200 mg Oral Daily Lactulose 10 g Oral Daily [START ON 02/14/2025] Levothyroxine 75 mcg Oral Before BKF [START ON 02/16/2025] Midodrine HCl 10 mg Oral Once per day on Sunday Pantoprazole 40 mg Oral Daily [Held by provider] warfarin 2 mg Oral Once per day on Sunday And [Held by provider] Warfarin 1 mg Oral Once per day on Sunday Melatonin Vitals: Blood pressure 110/51, pulse 76, temperature 97.7 F (36.5 C), temperature source Oral, resp. rate 18, weight 78.9 kg (174 lb), SpO2 96%. Laboratory Data: Lab Results Component Value Date/Time PT 20.0 (H) 02/13/2025 11:50 AM PT 27.7 (H) 06/01/2016 04:13 AM INR 1.7 (H) 02/13/2025 11:50 AM INR 2.6 (H) 06/01/2016 04:13 AM PTT 80.4 (H) 12/19/2024 03:25 AM PTT 110 (HH) 06/01/2016 04:13 AM Lab Results Component Value Date WBC 7.93 02/13/2025 HGB 7.3 (L) 02/13/2025 HCT 24.4 (L) 02/13/2025 PLATELET 139 (L) 02/13/2025 MCV 110.4 (H) 02/13/2025 Lab Results Component Value Date SODIUM 140 02/13/2025 POTASSIUM 3.6 02/13/2025 CHLORIDE 97 (L) 02/13/2025 CO2 31 02/13/2025 BUN 33 (H) 02/13/2025 CREATSERUM 7.16 (H) 02/13/2025 GLUCOSE 87 02/13/2025 Lab Results Component Value Date/Time GFR 7 (L) 02/13/2025 11:50 AM GFR 34 (L) 10/20/2021 05:52 AM GFR 32 (L) 08/07/2016 09:38 AM Imaging Information: CT Chest 02/12/25 reviewed in the record. IMPRESSION AND RECOMMENDATIONS Christian Amador is a 74 y.o. male with HTN, ESRD on dialysis, lymphoma s/p chemotherapy, who presented with worsening cough, was found to have left lung loculated effusion. Will plan for Image Guided Left chest tube when IR schedule permits. Please keep NPO at midnight prior to the procedure. Coag goals INR <1.5 and Platelets > 50k. Please notify IR if the situation changes. Consult discussed with Dr. Parra from the requesting team on 02/13/2025 at 1:55 PM. Consult reviewed with IR Attending Dr. Clark who agrees with the above plan. Shana Lew MD; 02/13/2025, 1:34 PM Important Notes Procedures are performed with either moderate sedation or anesthesia services. Both require the patient to be NPO (which includes tube feeds). Patients will need to lie flat comfortably for the duration of the procedure. Please be aware that patients requiring anesthesia services will require additional coordination which may increase the time from consult to procedure. Cosigned by Dilan Clark MD at 02/13/2025 2:03 PM EDT Associated Order(s): IP CONSULT TO NEPHROLOGY Inpatient Nephrology Consult Note Reason for Consultation: ESRD Requesting Physician: Fernanda Parra MD History of Present Illness: Christian Amador is a 74 y.o. male who we have been consulted to see on 02/13/2025. Christian Amador has a past medical history of HTN,ESRD on home hemodialysis ,HTN,S/P AVR,lymphoma s/p chemo Patient was having progressive weakness for the past week or so. Chronic cough possibly worsening, chronic SOB stable. Not on O2 at home. He presented to his PCP who heard crackles in LLL and prescribed levaquin. Patient presented to OSH ED last night for progressive symptoms and was found to have L pleural effusion concerning for empyema. WBC 7.9 at OSH. He was transferred immediately to [facility] for thoracic surgery evaluation. No chest tube was placed. He denies fevers/chills.he makes little urine gets Home HD 4 days a week for 3 hours he has a right TDC in place in [place] it was replaced he gives use of amphotericin B used during his heart surgery as cause of esrd Nephrology is consulted for Dialysis management Past Medical History: Diagnosis Date Anemia Arrhythmia Arthritis Atrial flutter Atrial tachycardia BPH (benign prostatic hyperplasia) CAD (coronary artery disease) Cardiomyopathy Congestive heart failure, unspecified Essential hypertension, benign GERD (gastroesophageal reflux disease) Gout Hematochezia Hematoma 03/2012, 04/2012 HTN (hypertension), benign Hyperlipidemia Hypothyroidism Kidney stones Leukocytosis Liver disease Lymphoma h/o chemo Lymphoma MIA (obstructive sleep apnea) Pacemaker Rheumatic heart disease S/P AVR (aortic valve replacement) mechanical S/P radiofrequency ablation operation for arrhythmia Seizure 06/08 Septic shock TIA (transient ischemic attack) Vascular disease Past Surgical History: Procedure Laterality Date UPGRADE GENERATOR PACEMAKER SINGLE TO DUAL CHAMBER SYSTEM N/A 04/02/2024 Laterality: N/A; Surgeon: Ronnie Ferrari MD; Location: [facility] RICK EGD DIAGNOSTIC 06/2022 INSERTION CVC TUNNELED N/A 10/10/2021 Laterality: N/A; Surgeon: Remy Ferrer MD; Location: [facility] INTERVENTIONAL RADIOLOGY (VIR) INSERTION CVC TUNNELED N/A 10/03/2021 Laterality: N/A; Surgeon: Kaylin Duran II, MD; Location: [facility] INTERVENTIONAL RADIOLOGY (VIR) PLACEMENT PROBE FOR [...] CVC TUNNELED Right 07/07/2016 Laterality: Right; Surgeon: Kaylin Grider MD; Location: [facility] INTERVENTIONAL RADIOLOGY (VIR) CARDIAC VEIN ELECTRODE PLACEMENT FOR LV PACING N/A 05/26/2016 Laterality: N/A; Surgeon: Yi Cody MD; Location: [facility] ROSS EP PACEMAKER PLACEMENT N/A 05/26/2016 Laterality: N/A; Surgeon: Yi Cody MD; Location: [facility] ROSS EP INSERTION CVC TUNNELED Right 05/19/2016 Laterality: Right; Surgeon: Kaylin Grider MD; Location: [facility] INTERVENTIONAL RADIOLOGY (VIR) INSERTION CVC TUNNELED Left 05/18/2016 Laterality: Left; Surgeon: Kaylin Girder MD; Location: [facility] INTERVENTIONAL RADIOLOGY (VIR) PACEMAKER [...] Versa CARDIAC PACEMAKER PLACEMENT 08/31/2003 Implant: [employer] [id number] [place] [address] APPENDECTOMY AR ANES HRT PERICRD SAC&GRT 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 ALPRAZolam 1 MG tablet Take 1 tablet by mouth at bedtime. B Ajxzcgl-M-Rbhuj Acid (NEPHRO-BALTAZAR PO) Take 1 tablet by mouth at bedtime. Cyclobenzaprine 10 MG tablet Take 1 tablet by mouth 2 times daily. Docusate Sodium (COLACE PO) Take by mouth 2 times daily. doxycycline hyclate 100 MG capsule Take 1 capsule by mouth 2 times daily. fluconazole 200 MG tablet Take 1 tablet by mouth See admin instructions. Starting 10/21, take 2 tablets once per day through 10/30. Starting 10/31, take 1 tablet once per day (Patient taking differently: Take 1 tablet by mouth daily.) 40 tablet 0 Lactulose 10 GM/15ML Solution oral solution Take 15 mL by mouth 2 times daily. levothyroxine 75 MCG tablet Take 1 tablet by mouth every morning before breakfast. 30 tablet 0 Midodrine HCl 10 MG tablet Take 1 tablet by mouth. 1 Tablet Sunday, Sunday, Sunday 2 Tablets Sun And Sun pantoprazole [address] tablet DR Take 1 tablet by mouth daily. 30 tablet 0 rifAXIMin 550 MG tablet Take 1 tablet by mouth 2 times daily. 60 tablet 11 Sensipar 30 MG tablet Take 1 tablet by mouth 3 times weekly. Sucroferric Oxyhydroxide 500 MG Chew Tab Chew 1,000 mg 3 times daily with meals. Plus one tablet with snacks warfarin 2 MG tablet Take 1 tablet by mouth every evening at 6 PM. Inpatient Meds: ALPRAZolam 1 mg Oral QHS calcium acetate - Phos Binder 667 mg Oral TID w/meals Cinacalcet 30 mg Oral Once per day on Sunday Cyclobenzaprine 10 mg Oral BID Doxycycline monohydrate 100 mg Oral Q12H Fluconazole 200 mg Oral Daily Lactulose 10 g Oral Daily [START ON 02/14/2025] Levothyroxine 75 mcg Oral Before BKF [START ON 02/16/2025] Midodrine HCl 10 mg Oral Once per day on Sunday Pantoprazole 40 mg Oral Daily vancomycin 10 mg/kg (Adjusted) Intravenous Q48H [Held by provider] warfarin 2 mg Oral Once per day on Sunday And [Held by provider] Warfarin 1 mg Oral Once per day on Sunday No Known Allergies Family History Problem Relation Age of Onset Diabetes Mother Heart Surgery Father CABG x5 Heart Disease - Other Father Coronary Artery Disease Father Breast Cancer Sister Diabetes Sister Heart Surgery Brother CABG x3 Heart Disease - Other Brother Coronary Artery Disease Brother Heart Disease - Other Paternal Aunt Diabetes Paternal Aunt Heart Disease - Other Paternal Uncle Diabetes Paternal Uncle Myocardial Infarction Paternal Uncle Heart Defect Paternal Uncle all Paternal uncles with heart problems Sudden Cardiac Paternal Uncle Myocardial Infarction Paternal Uncle Social History Tobacco Use Smoking status: Never Smokeless tobacco: Never Vaping Use Vaping status: Never Used Substance Use Topics Alcohol use: Never Drug use: No Review of Systems: General ROS: as per HPI and the remainder of the ROS is negative. Physical Examination: Vital Signs Temp: [97.7 F (36.5 C)] 97.7 F (36.5 C) Pulse (Heart Rate): [76] 76 Resp Rate: [18] 18 BP: (110)/(51) 110/51 O2 Sat (%): [96 %] 96 % Weight: [78.9 kg (174 lb)] 78.9 kg (174 lb) No intake/output data recorded. No intake/output data recorded. BP 110/51 (BP Location: Right arm, BP Position: Lying) Pulse 76 Temp 97.7 F (36.5 C) (Oral) Resp 18 Wt 78.9 kg (174 lb) SpO2 96% BMI 27.25 kg/m Smoking Status Never General: Alert and comfortable, not in respiratory distress HEENT: Normocephalic,atraumatic head, no scleral icterus, no periorbital edema, moist mucous membranes. Neck: Supple, no LAD, Heart: Regular rhythm, S1 and S2 auscultated,ssm at apex Lungs: decreased breath sounds on left side no use of accessary muscles Abdomen: Soft, non-tender, non-distended, normoactive BS. Extremities: No lower extremity edema. Warm and dry, peripheral pulses are palpable Skin: No rashes, excoriations. No stasis dermatitis. Neuro: Alert, oriented x 3, able to move all extremities Dialysis acess RT TDC with dressing over it looks clean Relevant Data: Lab Results Component Value Date SODIUM 140 02/13/2025 POTASSIUM 3.6 02/13/2025 CHLORIDE 97 (L) 02/13/2025 CO2 31 02/13/2025 BUN 33 (H) 02/13/2025 CREATSERUM 7.16 (H) 02/13/2025 GLUCOSE 87 02/13/2025 Lab Results Component Value Date CALCIUM 7.5 (L) 02/13/2025 PHOSPHORUS 2.9 02/13/2025 Lab Results Component Value Date WBC 7.93 02/13/2025 HGB 7.3 (L) 02/13/2025 HCT 24.4 (L) 02/13/2025 PLATELET 139 (L) 02/13/2025 MCV 110.4 (H) 02/13/2025 Lab Results Component Value Date CREATSERUM 7.16 (H) 02/13/2025 CREATSERUM 9.09 (H) 12/19/2024 CREATSERUM 8.06 (H) 12/18/2024 CREATSERUM 2.06 (H) 08/07/2016 CREATSERUM 3.0 06/05/2016 CREATSERUM 2.41 (H) 06/01/2016 CREATSERUM 2.29 (H) 05/31/2016 CREATSERUM 0.77 11/25/2014 CREATSERUM 1.35 (H) 11/26/2013 CREATSERUM 1.17 (H) 05/07/2013 Lab Results Component Value Date SPGRVTYUR 1.024 09/12/2021 GLUCOSEURINE Negative 09/12/2021 BILIRUBINURI NEGATIVE 04/27/2012 KETONESURINE Negative 09/12/2021 BLOODURINE Large (A) 09/12/2021 NITRITESURIN Negative 09/12/2021 LEUKOCESTUR Small (A) 09/12/2021 WBCURINE 10-20 (A) 09/12/2021 RBCURINE >20 (A) 09/12/2021 BACTERIAURIN TRACE (A) 09/12/2021 Impressions: 74 yr old male with history of htn ,esrd on home hd ,history of AVR,afib,lymphoma admitted with progressive sob ,weakness found to have left pleural effusion Problem list: ESRD Left pleural effusion Recommendations: On HHD 4 times a week 3 hours dry weight 75.5 kg will dialyse today for 3 hours try 2 litres uf using 3 k bath Anemia transfuse if HB drops below 7 check iron studies if replete start aranesp 40 micrograms weekly BMD check po4 and ipth Hypocalcemia stable if po4 is above 5.5 start phoslo 667 mg 1 tab tid with meals Thank you for allowing [facility] to participate in the care of your patient. MARIA EUGENIA LANDRY M.D,ALEJANDRO Attending Nephrology Associated Order(s): IP CONSULT TO SURGERY - THORACIC THORACIC SURGERY CONSULT NOTE Patient Name: Christian Amador Admit Date: 02/13/2025 [facility] Hospital: LOS: 0 days Date of Evaluation: 02/13/2025 11:59 AM Reason for Consult / Chief Complaint: 74 yo transferred to [facility] for thoracic evaluation in setting of empyema ASSESSMENT: Christian Amador is a 74 y.o. male with extensive cardiac history, history of lymphoma, and ESRD on HD who presents with L pleural effusion concerning for empyema. PLAN: - recommend IR consult for pigtail chest tube placement - Patient is a poor surgical candidate recommend pulmonology consult for further recommendations after chest tube placement - recommend heparin bridge This plan was discussed with and approved by Attending MD Dr. Nash. Thank you for allowing us to participate in the care of your patient. Should you have any further questions please do not hesitate to contact the surgery consult team. Mindi Lozano MD HPI: Patient was having progressive weakness for the past week or so. Chronic cough possibly worsening, chronic SOB stable. Not on O2 at home. He presented to his PCP who heard crackles in LLL and prescribed levaquin. Patient presented [facility] ED last night for progressive symptoms and was found to have L pleural effusion concerning for empyema. WBC 7.9 at OSH. He was transferred immediately to [facility] for thoracic surgery evaluation. No chest tube was placed. He denies fevers/chills. HISTORY: PAST MEDICAL HISTORY He has a past medical history of Anemia, Arrhythmia, Arthritis, Atrial flutter, Atrial tachycardia, BPH (benign prostatic hyperplasia), CAD (coronary artery disease), Cardiomyopathy, Congestive heart failure, unspecified, Essential hypertension, benign, GERD (gastroesophageal reflux disease), Gout, Hematochezia, Hematoma (03/2012, 04/2012), HTN (hypertension), benign, Hyperlipidemia, Hypothyroidism, Kidney stones, Leukocytosis, Liver disease, Lymphoma, Lymphoma, MIA (obstructive sleep apnea), Pacemaker, Rheumatic heart disease, S/P AVR (aortic valve replacement), S/P radiofrequency ablation operation for arrhythmia, Seizure (06/08), Septic shock, TIA (transient ischemic attack), and Vascular disease. He has no past medical history of Diabetes mellitus or Difficult intubation. PAST SURGICAL HISTORY His has a past surgical history that includes cardiac pacemaker placement (08/31/2003); cardiac pacemaker placement (10/20/2010); appendectomy; pr anes hrt pericrd sac&grt vsls w/internal investigator oxtj >1mo po; ep implant biventricular pacemaker total (08/07/2013); cardiac vein electrode placement for lv pacing (N/A, 08/07/2013); pacemaker electrode removal (08/07/2013); av node ablation (N/A, 02/26/2013); colonoscopy diagnostic (N/A, 03/20/2016); pacemaker electrode removal (N/A, 05/08/2016); insertion cvc tunneled (Left, 05/18/2016); insertion cvc tunneled (Right, 05/19/2016); cardiac vein electrode placement for lv pacing (N/A, 05/26/2016); pacemaker placement (N/A, 05/26/2016); removal cvc tunneled (Right, 07/07/2016); ess nasal diagnostic (Bilateral, 09/20/2021); ess sphenoid sinusotomy with removal tissue (Right, 09/20/2021); ess total ethmoidectomy (Right, 09/20/2021); placement probe for transesophageal echocardiography (N/A, 09/23/2021); insertion cvc tunneled (N/A, 10/03/2021); insertion cvc tunneled (N/A, 10/10/2021); egd diagnostic (06/2022); and upgrade generator pacemaker single to dual chamber system (N/A, 04/02/2024). Social History Tobacco Use Smoking status: Never Smokeless tobacco: Never Vaping Use Vaping status: Never Used Substance Use Topics Alcohol use: Never Drug use: No FAMILY HISTORY His family history includes Breast Cancer in his sister; Coronary Artery Disease in his brother and father; Diabetes in his mother, paternal aunt, paternal uncle, and sister; Heart Defect in his paternal uncle; Heart Disease - Other in his brother, father, paternal aunt, and paternal uncle; Heart Surgery in his brother and father; Myocardial Infarction in his paternal uncle and paternal uncle; Sudden Cardiac in his paternal uncle. He He indicated that his mother is . He indicated that his father is . He indicated that two of his three sisters are alive. He indicated that only one of his four brothers is alive. He indicated that the status of his paternal aunt is unknown. He indicated that one of his three paternal uncles is . ALLERGIES No Known Allergies Prior to Admission medications Medication Sig Start Date End Date Taking? Authorizing Provider Acetaminophen (TYLENOL PO) Take by mouth. Historical Provider ALPRAZolam 1 MG tablet Take 1 tablet by mouth at bedtime. 01/18/24 Historical Provider B Kakpdqs-B-Osskb Acid (NEPHRO-BALTAZAR PO) Take 1 tablet by mouth at bedtime. Historical Provider Cyclobenzaprine 10 MG tablet Take 1 tablet by mouth 2 times daily. Historical Provider Docusate Sodium (COLACE PO) Take by mouth 2 times daily. Historical Provider doxycycline hyclate 100 MG capsule Take 1 capsule by mouth 2 times daily. 12/12/22 Historical Provider fluconazole 200 MG tablet Take 1 tablet by mouth See admin instructions. Starting 10/21, take 2 tablets once per day through 10/30. Starting 10/31, take 1 tablet once per day Patient taking differently: Take 1 tablet by mouth daily. 10/20/21 Mike Mendoza MD Lactulose 10 GM/15ML Solution oral solution Take 15 mL by mouth 2 times daily. Historical Provider levothyroxine 75 MCG tablet Take 1 tablet by mouth every morning before breakfast. 10/21/21 Mike Mendoza MD Midodrine HCl 10 MG tablet Take 1 tablet by mouth. 1 Tablet Sunday, Sunday, Sunday 2 Tablets Sun And Sun06/25/23 Historical Provider pantoprazole [address] tablet DR Take 1 tablet by mouth daily. 10/21/21 Mike Mendoza MD rifAXIMin 550 MG tablet Take 1 tablet by mouth 2 times daily. 12/03/24 11/28/25 Vaishnavi Fry DO Sensipar 30 MG tablet Take 1 tablet by mouth 3 times weekly. 10/01/24 Historical Provider Sucroferric Oxyhydroxide 500 MG Chew Tab Chew 1,000 mg 3 times daily with meals. Plus one tablet with snacks Historical Provider warfarin 2 MG tablet Take 1 tablet by mouth every evening at 6 PM. 03/06/24 Historical Provider REVIEW OF SYSTEMS: A full review of systems was preformed and was negative unless otherwise noted. General: Negative; Dermatological: Negative; Ophthalmic: Negative; ENT: Negative; Breast: negative; Gastrointestinal: Negative; Cardiac: Negative; Respiratory: Negative; Genito-Urinary: Negative. Endocrine: Negative; Musculoskeletal : Negative; Neurological: Negative; Psychological:Negative PHYSICAL EXAM: Vital Signs: Reviewed: BP 110/51 (BP Location: Right arm, BP Position: Lying) Pulse 76 Temp 97.7 F (36.5 C) (Oral) Resp 18 SpO2 96% Smoking Status Never , There is no height or weight on file to calculate BMI. Constitutional: Well-developed, well-nourished, in no distress. Skin/Wounds: Walsh, warm and dry Neurological: Awake, alert, follows commands, moves all extremities Lungs: Respiratory effort is normal, equal rise and fall of chest. On NC Heart: Regular rate and rhythm, peripheral pulses 2+, well perfused Abdomen: Soft, non-distended : Deferred Extremities: Movement of extremities to command DATA REVIEWED Medications, allergies, diagnostic studies and lab reports reviewed. VITAL SIGNS: INTAKE/OUTPUT: Temp: [97.7 F (36.5 C)] 97.7 F (36.5 C) Pulse (Heart Rate): [76] 76 Resp Rate: [18] 18 BP: (110)/(51) 110/51 O2 Sat (%): [96 %] 96 % No intake/output data recorded. WEIGHT/BMI: RESPIRATORY: Wt Readings from Last 2 Encounters: 12/18/24 79.2 kg (174 lb 8 oz) 10/22/24 78.9 kg (174 lb) There is no height or weight on file to calculate BMI. Oxygen Therapy O2 Sat (%): 96 % O2 Device: room air LABS: Lab Results Component Value Date RESULTCULT NO GROWTH DAY 5 OF 05/15/2016 RESULTCULT NO GROWTH DAY 5 OF 05/15/2016 DIAGNOSTIC RESULTS: Significant New Imaging/Radiological Studies: CT ANGIO ABDOMEN/PELVIS (OUTSIDE IMAGE) Result Date: 02/13/2025 Outside Imaging Study for Support of Clinical Care. This study was sent from an outside facility to [facility] for support of clinical care of the patient within the [facility] system. XR CHEST (OUTSIDE IMAGE) Result Date: 02/13/2025 Outside Imaging Study for Support of Clinical Care. This study was sent from an outside facility to [facility] for support of clinical care of the patient within the [facility] system. CT CHEST (OUTSIDE IMAGE) Result Date: 02/13/2025 Outside Imaging Study for Support of Clinical Care. This study was sent from an outside facility to [facility] for support of clinical care of the patient within the [facility] system. Cosigned by Galileo Nash MD at 02/18/2025 4:59 PM EDT documented in this encounter [facility] 02-16-2025 Hospital Discharge instructions Hoda Moore MD - 02/16/2025 10:21 AM EDT Patient Experience Survey Reminder You may receive a survey in the mail within a few weeks regarding your hospitalization. This helps us to improve the care and services we provide at [facility]. We truly appreciate you taking the time to fill this out. We particularly welcome any specific comments you may have (good or bad!) regarding your experience at [facility] so that we may use them to continue to strive towards excellence for our patients. Discharge instructions from your inpatient doctor, Hoda Moore MD, and team You were admitted to the hospital for fatigue probably related to metapneumovirus infection While you were here, - your pleural effusion was stable - you had acute on chronic anemia. GI performed colonoscopy which showed some stenosis and possible ischemia in the sigmoid colon. EGD did not show varices but did show portal hypertensive gastropathy (common with people with cirrhosis, and can be source for bleeding) - we got your INR back to goal After discharge, please do the following: Follow up with PCP for routine care Continue warfarin at 2mg every day. Recheck INR next Sunday Follow up with GI (Dr. Zheng) given colonoscopy results Follow up with pulmonary given your pleural effusion Follow up with hepatology (Dr. Fry) Follow up with nephrology about starting aranesp (injection treatment to help low blood counts due to dialysis - usually administered during dialysis once a week) You Have a Referral To Our Outpatient Pulmonary (Lung Doctor) Clinics During your stay in the hospital, our doctors found that you would benefit from seeing our lung specialists in the clinic to help with your lungs and breathing. Some of the conditions our lung doctors see in the clinic: Asthma Bronchiectasis Chronic Bronchitis Chronic Obstructive Pulmonary Disease (COPD) Emphysema Interstitial Lung Disease Lung Nodules Pneumonia Pulmonary Fibrosis Pulmonary Hypertension Sarcoidosis Scheduling Please call [phone] to schedule this appointment. Many appointments can also be scheduled online using [employer] by visiting ([email or web address]). The outpatient pulmonary clinics are at the following locations: [facility]; [address]; [address] [address] Outpatient Care [place]; [address] [address] Outpatient Care [place], [facility] [facility] 4th Floor, [address] [address] You can go to the following website for more information: [email or web address] Please review the first page of your after-visit summary for a detailed list of medication changes, follow-up instructions and scheduled appointments. Please note that not all appointments will be set up on discharge per case management policy. Please check your my chart if needed and follow up with your appointments if you do not receive a call. If you have any questions after your discharge, please call our office at [phone] or your floor and one of our nurses will call you back. Division of Hospital Medicine [phone] documented in this encounter [facility] 02-16-2025 Hospital Discharge instructions Hoda Moore MD - 02/16/2025 10:21 AM EDT Patient Experience Survey Reminder You may receive a survey in the mail within a few weeks regarding your hospitalization. This helps us to improve the care and services we provide at [facility]. We truly appreciate you taking the time to fill this out. We particularly welcome any specific comments you may have (good or bad!) regarding your experience at [facility] so that we may use them to continue to strive towards excellence for our patients. Discharge instructions from your inpatient doctor, Hoda Moore MD, and team You were admitted to the hospital for fatigue probably related to metapneumovirus infection While you were here, - your pleural effusion was stable - you had acute on chronic anemia. GI performed colonoscopy which showed some stenosis and possible ischemia in the sigmoid colon. EGD did not show varices but did show portal hypertensive gastropathy (common with people with cirrhosis, and can be source for bleeding) - we got your INR back to goal After discharge, please do the following: Follow up with PCP for routine care Continue warfarin at 2mg every day. Recheck INR next Sunday Follow up with GI (Dr. Zheng) given colonoscopy results Follow up with pulmonary given your pleural effusion Follow up with hepatology (Dr. Fry) Follow up with nephrology about starting aranesp (injection treatment to help low blood counts due to dialysis - usually administered during dialysis once a week) You Have a Referral To Our Outpatient Pulmonary (Lung Doctor) Clinics During your stay in the hospital, our doctors found that you would benefit from seeing our lung specialists in the clinic to help with your lungs and breathing. Some of the conditions our lung doctors see in the clinic: Asthma Bronchiectasis Chronic Bronchitis Chronic Obstructive Pulmonary Disease (COPD) Emphysema Interstitial Lung Disease Lung Nodules Pneumonia Pulmonary Fibrosis Pulmonary Hypertension Sarcoidosis Scheduling Please call [phone] to schedule this appointment. Many appointments can also be scheduled online using [employer] by visiting ([email or web address]). The outpatient pulmonary clinics are at the following locations: Outpatient Care [facility]; [address] [facility] [address] [facility] Outpatient Care; [address] [facility] [address] Outpatient Care [place]; [address] [address] Outpatient Care [place], [address], [address], [place] [address] You can go to the following website for more information: [email or web address] Please review the first page of your after-visit summary for a detailed list of medication changes, follow-up instructions and scheduled appointments. Please note that not all appointments will be set up on discharge per case management policy. Please check your my chart if needed and follow up with your appointments if you do not receive a call. If you have any questions after your discharge, please call our office at [phone] or your floor and one of our nurses will call you back. Division of Hospital Medicine [phone] documented in this encounter [facility] 02-13-2025 History and physical note Hospital Medicine Admission History & Physical Patient: Christian Amador, : 1950, Date of face to face patient encounter: 02/13/2025 Impression / Plan Christian Amador is a 74 y.o. male with a PMH of ESRD on home dialysis, atrial fibrillation s/p AVN ablation and PPM, MRSA bacteremia on life long suppressive antibiotics, fungemia on chronic fluconazole, mechanical mitral valve, and MADRID cirrhosis of liver, presented to OSH with fatigue, [facility] for [facility] fluid collection that was found to be chronic. Also found to have acute on chronic anemia in setting of hematochezia. Problem list reviewed at admission. Fatigue/weakness Hematochezia Pt has known external hemorrhoids. Hb back in Nov was 11, Hb 7.3 on admission. No recent colonoscopies seen in our system - Blood consent completed - Hb check @ 8p - GI consult tomorrow Chronic pleural effusion Effusion is chronic as it was present at least [address] Chest, noted on CT Chest in January 2023 on L side. Pleural fluid was exudative at that time with no evidence of malignant cells on cytology. Thought secondary to PNA, completed tx with ceftriaxone x2 weeks and had chest tube placed for drainage. Although he has cough, he has not had fever and is on RA, breathing comfortably so holding off on antibiotics for now. - Thoracic consulted - Pulm consulted - Given chronicity, no need to place chest tube now - Holding off on antibiotics for now Mechanical MV INR goal 2.5-3.5, INR 1.7 on admission. On warfarin at home with regimen of 2mg M-F, 1mg on Sat and Sun. - Continue warfarin - heparin gtt to bridge until therapeutic ESRD on home dialysis Pt reports he does HD at home 4x weekly. - Neph consulted - Midodrine with HD - Do not have his home phos binder on formulary, starting Phoslo while amditted - Continue cinacalcet Atrial fibrillation s/p AVN ablation PPM - on AC as above MRSA bacteremia on life long suppressive antibiotics - Continue home doxy History of fungemia on chronic fluconazole - Continue home fluconazole MADRID cirrhosis of liver MELD 26 - Continue lactulose - No evidence of ascites on exam - Dec HCC screening negative Complexity. Any conditions listed below are present on admission unless otherwise specified. . DVT prophylaxis with lovenox Anticipated Disposition: home vs SNF Code status is FULL Chief Complaint Pleural fluid collection History of Presenting Illness Christian Amador is a 74 y.o. male with a PMH of ESRD on home dialysis, mechanical mitral valve, atrial fibrillation s/p AVN ablation and PPM, MRSA bacteremia on life long suppressive antibiotics, fungemia on chronic fluconazole and MADRID cirrhosis of liver, admitted here as transfer from OSH for pleural fluid collection. Pt reports for the past week or so, he has started to feel extremely weak and fatigued. He reports associated cough and also noted rectal bleeding, which he has had before with his external hemorrhoids. He saw his PCP who performed a CXR and labs. PCP saw what seemed to be large pleural effusion on CXR so he advised pt go to the ED for further evaluation. CT Chest obtained at OSH ED showing moderate sized Left pleural fluid collection most compatible with empyema. Reticoulonodular groundglass opacities thorughout bilateral lungs. They did not perform thoracentesis or place chest tube. They also obtained CTA A/P for GI bleeding which showed no acute GI bleed but multiple small L adrenal nodules, markedly enlarged prostate. Labs notable for Hb 8.1, WBC 7.9, INR 1.4. Review of Systems Constitutional: No fever, chills, weight changes Eyes: No vision changes ENT: No ringing, loss of hearing Cardiovascular: No LE edema, leg pain with walking, PND, Orthopnea Respiratory: + cough, SOB Gastrointestinal: No abd pain, constipation, diarrhea Genitourinary: No dysuria, gross hematuria Integumentary: No rash Musculoskeletal: No joint deformity, joint pains Psychiatric: No depressed mood History Past Medical History: Diagnosis Date Anemia Arrhythmia Arthritis Atrial flutter Atrial tachycardia BPH (benign prostatic hyperplasia) CAD (coronary artery disease) Cardiomyopathy Congestive heart failure, unspecified Essential hypertension, benign GERD (gastroesophageal reflux disease) Gout Hematochezia Hematoma 03/2012, 04/2012 HTN (hypertension), benign Hyperlipidemia Hypothyroidism Kidney stones Leukocytosis Liver disease Lymphoma h/o chemo Lymphoma MIA (obstructive sleep apnea) Pacemaker Rheumatic heart disease S/P AVR (aortic valve replacement) mechanical S/P radiofrequency ablation operation for arrhythmia Seizure 06/08 Septic shock TIA (transient ischemic attack) Vascular disease Past Surgical History: Procedure Laterality Date UPGRADE GENERATOR PACEMAKER SINGLE TO DUAL CHAMBER SYSTEM N/A 04/02/2024 Laterality: N/A; Surgeon: Ronnie Ferrari MD; Location: [facility] EP EGD DIAGNOSTIC 06/2022 INSERTION CVC TUNNELED N/A 10/10/2021 Laterality: N/A; Surgeon: Remy Ferrer MD; Location: [facility] INTERVENTIONAL RADIOLOGY (VIR) INSERTION CVC TUNNELED N/A 10/03/2021 Laterality: N/A; Surgeon: Kaylin Duran II, MD; Location: [facility] INTERVENTIONAL RADIOLOGY (VIR) PLACEMENT PROBE FOR TRANSESOPHAGEAL ECHOCARDIOGRAPHY N/A 09/23/2021 Laterality: N/A; Surgeon: Sadia Nieto MD; Location: [facility] MAIN OR ESS NASAL DIAGNOSTIC Bilateral 09/20/2021 Laterality: Bilateral; Surgeon: You Wise MD; [facility] ESS SPHENOID SINUSOTOMY WITH REMOVAL TISSUE Right 09/20/2021 Laterality: Right; Surgeon: You Wise MD; Location: [facility] MAIN OR ESS TOTAL ETHMOIDECTOMY Right 09/20/2021 Laterality: Right; Surgeon: You Wise MD; Location: [facility] MAIN OR REMOVAL CVC TUNNELED Right 07/07/2016 Laterality: Right; Surgeon: Kaylin Grider MD; Location: [facility] INTERVENTIONAL RADIOLOGY (VIR) CARDIAC VEIN ELECTRODE PLACEMENT FOR LV PACING N/A 05/26/2016 Laterality: N/A; Surgeon: Yi Cody MD; Location: [facility] EP PACEMAKER PLACEMENT N/A 05/26/2016 Laterality: N/A; Surgeon: Yi Cody MD; Location: [facility] EP INSERTION CVC TUNNELED Right 05/19/2016 Laterality: Right; Surgeon: Kaylin Grider MD; Location: [facility] INTERVENTIONAL RADIOLOGY (VIR) INSERTION CVC TUNNELED Left 05/18/2016 Laterality: Left; Surgeon: Kaylin Grider MD; Location: [facility] INTERVENTIONAL RADIOLOGY (VIR) PACEMAKER ELECTRODE REMOVAL N/A 05/08/2016 Laterality: N/A; Surgeon: Luigi Mart MD; Location: [facility] EP COLONOSCOPY DIAGNOSTIC N/A 03/20/2016 Laterality: N/A; Surgeon: Jeremiah García MD; Location: [facility] ENDOSCOPY EP IMPLANT BIVENTRICULAR PACEMAKER TOTAL 08/07/2013 [...] Versa CARDIAC PACEMAKER PLACEMENT 08/31/2003 Implant: Medtronic [id number] [place] [address] APPENDECTOMY AR ANES HRT PERICRD SAC&GRT 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 He has never used smokeless tobacco. He reports that he does not drink alcohol and does not use drugs. Family History family history includes Breast Cancer in his sister; Coronary Artery Disease in his brother and father; Diabetes in his mother, paternal aunt, paternal uncle, and sister; Heart Defect in his paternal uncle; Heart Disease - Other in his brother, father, paternal aunt, and paternal uncle; Heart Surgery in his brother and father; Myocardial Infarction in his paternal uncle and paternal uncle; Sudden Cardiac in his paternal uncle. Medications / Allergies Prior to Admission Medications Prescriptions ALPRAZolam 1 MG tablet Sig: Take 1 tablet by mouth at bedtime. Acetaminophen (TYLENOL PO) Sig: Take by mouth. B Rymyvcg-Z-Totll Acid (NEPHRO-BALTAZAR PO) Sig: Take 1 tablet by mouth at bedtime. Cyclobenzaprine 10 MG tablet Sig: Take 1 tablet by mouth 2 times daily. Docusate Sodium (COLACE PO) Sig: Take by mouth 2 times daily. Lactulose 10 GM/15ML Solution oral solution Sig: Take 15 mL by mouth 2 times daily. Midodrine HCl 10 MG tablet Sig: Take 1 tablet by mouth. 1 Tablet Sunday, Sunday, Sunday 2 Tablets Sun And Sun Sensipar 30 MG tablet Sig: Take 1 tablet by mouth 3 times weekly. Sucroferric Oxyhydroxide 500 MG Chew Tab Sig: Chew 1,000 mg 3 times daily with meals. Plus one tablet with snacks doxycycline hyclate 100 MG capsule Sig: Take 1 capsule by mouth 2 times daily. fluconazole 200 MG tablet Sig: Take 1 tablet by mouth See admin instructions. Starting 10/21, take 2 tablets once per day through 10/30. Starting 10/31, take 1 tablet once per day Patient taking differently: Take 1 tablet by mouth daily. levothyroxine 75 MCG tablet Sig: Take 1 tablet by mouth every morning before breakfast. pantoprazole [address] tablet Sig: Take 1 tablet by mouth daily. rifAXIMin 550 MG tablet Sig: Take 1 tablet by mouth 2 times daily. warfarin 2 MG tablet Sig: Take 1 tablet by mouth every evening at 6 PM. Note (12/19/2024): Current dose is 1 mg Sun/Sun and 2 mg rest of week Facility-Administered Medications: None No Known Allergies Objective Findings Smoking Status Never Physical Exam Gen: Alert, Awake, NAD Eyes: EOMI, no icterus ENT: MMM, trachea midline Resp: Decreased but coarse breath sounds in L lung field, normal respiratory effort Cardio: RRR, normal S1, S2, no M/R/G. No KVNG. GI: S/NT/ND Skin: No jaundice or rash Neuro: No focal deficits Psych: Ox3, appropriate affect and cognition Data Review documented in this encounter [facility] 02-13-2025 History and physical note Hospital Medicine Admission History & Physical Patient: Christian Amador, : 1950, Date of face to face patient encounter: 02/13/2025 Impression / Plan Christian Amador is a 74 y.o. male with a PMH of ESRD on home dialysis, atrial fibrillation s/p AVN ablation and PPM, MRSA bacteremia on life long suppressive antibiotics, fungemia on chronic fluconazole, mechanical mitral valve, and MADRID cirrhosis of liver, presented to OSH with fatigue, transferred to [facility] for pleural fluid collection that was found to be chronic. Also found to have acute on chronic anemia in setting of hematochezia. Problem list reviewed at admission. Fatigue/weakness Hematochezia Pt has known external hemorrhoids. Hb back in Nov was 11, Hb 7.3 on admission. No recent colonoscopies seen in our system - Blood consent completed - Hb check @ 8p - GI consult tomorrow Chronic pleural effusion Effusion is chronic as it was present at least [address] Chest, noted on CT Chest in January 2023 on L side. Pleural fluid was exudative at that time with no evidence of malignant cells on cytology. Thought secondary to PNA, completed tx with ceftriaxone x2 weeks and had chest tube placed for drainage. Although he has cough, he has not had fever and is on RA, breathing comfortably so holding off on antibiotics for now. - Thoracic consulted - Pulm consulted - Given chronicity, no need to place chest tube now - Holding off on antibiotics for now Mechanical MV INR goal 2.5-3.5, INR 1.7 on admission. On warfarin at home with regimen of 2mg M-F, 1mg on Sat and Sun. - Continue warfarin - heparin gtt to bridge until therapeutic ESRD on home dialysis Pt reports he does HD at home 4x weekly. - Neph consulted - Midodrine with HD - Do not have his home phos binder on formulary, starting Phoslo while amditted - Continue cinacalcet Atrial fibrillation s/p AVN ablation PPM - on AC as above MRSA bacteremia on life long suppressive antibiotics - Continue home doxy History of fungemia on chronic fluconazole - Continue home fluconazole MADRID cirrhosis of liver MELD 26 - Continue lactulose - No evidence of ascites on exam - Dec HCC screening negative Complexity. Any conditions listed below are present on admission unless otherwise specified. . DVT prophylaxis with lovenox Anticipated Disposition: home vs SNF Code status is FULL Chief Complaint Pleural fluid collection History of Presenting Illness Christian Amador is a 74 y.o. male with a PMH of ESRD on home dialysis, mechanical mitral valve, atrial fibrillation s/p AVN ablation and PPM, MRSA bacteremia on life long suppressive antibiotics, fungemia on chronic fluconazole and MADRID cirrhosis of liver, admitted here as transfer from OSH for pleural fluid collection. Pt reports for the past week or so, he has started to feel extremely weak and fatigued. He reports associated cough and also noted rectal bleeding, which he has had before with his external hemorrhoids. He saw his PCP who performed a CXR and labs. PCP saw what seemed to be large pleural effusion on CXR so he advised pt go to the ED for further evaluation. CT Chest obtained at O[facility] ED showing moderate sized Left pleural fluid collection most compatible with empyema. Reticoulonodular groundglass opacities thorughout bilateral lungs. They did not perform thoracentesis or place chest tube. They also obtained CTA A/P for GI bleeding which showed no acute GI bleed but multiple small L adrenal nodules, markedly enlarged prostate. Labs notable for Hb 8.1, WBC 7.9, INR 1.4. Review of Systems Constitutional: No fever, chills, weight changes Eyes: No vision changes ENT: No ringing, loss of hearing Cardiovascular: No LE edema, leg pain with walking, PND, Orthopnea Respiratory: + cough, SOB Gastrointestinal: No abd pain, constipation, diarrhea Genitourinary: No dysuria, gross hematuria Integumentary: No rash Musculoskeletal: No joint deformity, joint pains Psychiatric: No depressed mood History Past Medical History: Diagnosis Date Anemia Arrhythmia Arthritis Atrial flutter Atrial tachycardia BPH (benign prostatic hyperplasia) CAD (coronary artery disease) Cardiomyopathy Congestive heart failure, unspecified Essential hypertension, benign GERD (gastroesophageal reflux disease) Gout Hematochezia Hematoma 03/2012, 04/2012 HTN (hypertension), benign Hyperlipidemia Hypothyroidism Kidney stones Leukocytosis Liver disease Lymphoma h/o chemo Lymphoma MIA (obstructive sleep apnea) Pacemaker Rheumatic heart disease S/P AVR (aortic valve replacement) mechanical S/P radiofrequency ablation operation for arrhythmia Seizure 06/08 Septic shock TIA (transient ischemic attack) Vascular disease Past Surgical History: Procedure Laterality Date UPGRADE GENERATOR PACEMAKER SINGLE TO DUAL CHAMBER SYSTEM N/A 04/02/2024 Laterality: N/A; Surgeon: Ronnie Ferrari MD; Location: [facility] EP EGD DIAGNOSTIC 06/2022 INSERTION CVC TUNNELED N/A 10/10/2021 Laterality: N/A; Surgeon: Remy Ferrer MD; Location: [facility] INTERVENTIONAL RADIOLOGY (VIR) INSERTION CVC TUNNELED N/A 10/03/2021 Laterality: N/A; Surgeon: Kaylin Duran II, MD; Location: [facility] INTERVENTIONAL RADIOLOGY (VIR) PLACEMENT PROBE FOR TRANSESOPHAGEAL ECHOCARDIOGRAPHY N/A 09/23/2021 Laterality: N/A; Surgeon: Sadia Nieto MD; Location: [facility] MAIN OR ESS NASAL DIAGNOSTIC Bilateral 09/20/2021 Laterality: Bilateral; Surgeon: You Wise MD; Location: [facility] MAIN OR ESS SPHENOID SINUSOTOMY WITH REMOVAL TISSUE Right 09/20/2021 Laterality: Right; Surgeon: You Wise MD; Location: [facility] MAIN OR ESS TOTAL ETHMOIDECTOMY Right 09/20/2021 Laterality: Right; Surgeon: You Wise MD; Location: [facility] MAIN OR REMOVAL CVC TUNNELED Right 07/07/2016 Laterality: Right; Surgeon: Kaylin Grider MD; Location: [facility] INTERVENTIONAL RADIOLOGY (VIR) CARDIAC VEIN ELECTRODE PLACEMENT FOR LV PACING N/A 05/26/2016 Laterality: N/A; Surgeon: Yi Cody MD; Location: [facility] EP PACEMAKER PLACEMENT N/A 05/26/2016 Laterality: N/A; Surgeon: Yi Cody MD; Location: [facility] EP INSERTION CVC TUNNELED Right 05/19/2016 Laterality: Right; Surgeon: Kaylin Grider MD; Location: [facility] INTERVENTIONAL RADIOLOGY (VIR) INSERTION CVC TUNNELED Left 05/18/2016 Laterality: Left; Surgeon: Kaylin Grider MD; Location: [facility] INTERVENTIONAL RADIOLOGY (VIR) [...] Versa CARDIAC PACEMAKER PLACEMENT 08/31/2003 Implant: Medtronic [id number] [place] [address] APPENDECTOMY AR ANES HRT PERICRD SAC&GRT 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 He has never used smokeless tobacco. He reports that he does not drink alcohol and does not use drugs. Family History family history includes Breast Cancer in his sister; Coronary Artery Disease in his brother and father; Diabetes in his mother, paternal aunt, paternal uncle, and sister; Heart Defect in his paternal uncle; Heart Disease - Other in his brother, father, paternal aunt, and paternal uncle; Heart Surgery in his brother and father; Myocardial Infarction in his paternal uncle and paternal uncle; Sudden Cardiac in his paternal uncle. Medications / Allergies Prior to Admission Medications Prescriptions ALPRAZolam 1 MG tablet Sig: Take 1 tablet by mouth at bedtime. Acetaminophen (TYLENOL PO) Sig: Take by mouth. B Mjkityq-M-Vccnr Acid (NEPHRO-BALTAZAR PO) Sig: Take 1 tablet by mouth at bedtime. Cyclobenzaprine 10 MG tablet Sig: Take 1 tablet by mouth 2 times daily. Docusate Sodium (COLACE PO) Sig: Take by mouth 2 times daily. Lactulose 10 GM/15ML Solution oral solution Sig: Take 15 mL by mouth 2 times daily. Midodrine HCl 10 MG tablet Sig: Take 1 tablet by mouth. 1 Tablet Sunday, Sunday, Sunday 2 Tablets Sun And Sun Sensipar 30 MG tablet Sig: Take 1 tablet by mouth 3 times weekly. Sucroferric Oxyhydroxide 500 MG Chew Tab Sig: Chew 1,000 mg 3 times daily with meals. Plus one tablet with snacks doxycycline hyclate 100 MG capsule Sig: Take 1 capsule by mouth 2 times daily. fluconazole 200 MG tablet Sig: Take 1 tablet by mouth See admin instructions. Starting 10/21, take 2 tablets once per day through 10/30. Starting 10/31, take 1 tablet once per day Patient taking differently: Take 1 tablet by mouth daily. levothyroxine 75 MCG tablet Sig: Take 1 tablet by mouth every morning before breakfast. pantoprazole [address] migdalia CAO Sig: Take 1 tablet by mouth daily. rifAXIMin 550 MG tablet Sig: Take 1 tablet by mouth 2 times daily. warfarin 2 MG tablet Sig: Take 1 tablet by mouth every evening at 6 PM. Note (12/19/2024): Current dose is 1 mg Sun/Sun and 2 mg rest of week Facility-Administered Medications: None No Known Allergies Objective Findings Smoking Status Never Physical Exam Gen: Alert, Awake, NAD Eyes: EOMI, no icterus ENT: MMM, trachea midline Resp: Decreased but coarse breath sounds in L lung field, normal respiratory effort Cardio: RRR, normal S1, S2, no M/R/G. No KVNG. GI: S/NT/ND Skin: No jaundice or rash Neuro: No focal deficits Psych: Ox3, appropriate affect and cognition Data Review documented in this encounter [facility] 02-13-2025 Discharge summary Note Date/Time February 13, 2025 6:07am [facility] Medical Records Department [address] [place] [address] Emergency Department Summary 02/12/25 MR#: [id number] Acct: [id number] Name: CHRISTIAN AMADOR Rep #:[id number] : 1950 74 From: Kaveh Hadley DO PCP: Dr. Castro Ferrara DO Status:REG ER Location: ED ADDENDUM by Dr. Kaveh Hadley DO on 02/13/25 at 0607 Patient is EKG reviewed and showed sinus rhythm with a rate of 81 bpm 02/13/25 0607<Electronically signed by Kaveh Hadley DO> Cosigner Signature (if applicable): cc: Dr. Castro Ferrara DO ~* Signed HPI History of Present Illness Chief Complaint: GI Bleed Narrative Narrative: The patient is a 74-year-old male with past medical history of end-stage renal disease on dialysis 4 days a week, CAD, Heart valve on warfarin, MIA, cirrhosis on lactulose, TIA, atrial flutter who presents to the emergency department with concern of bright red blood per rectum and generalized weakness not feeling well. He states he is also was diagnosed with pneumonia recently and was started on Levaquin on Sunday this past week however he still coughing up significant amount of phlegm. Patient notes that for the last week he has had off-and-on bright red blood per rectum. He states that his stools have been always dark because he is on a medication with high iron supplementation. 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 History of rheumatic fever as a child COVID-19 Infectious endocarditis Non-ST elevation (NSTEMI) myocardial infarction CAD (coronary artery disease) History of pacemaker Coagulopathy Airway intubation performed without difficulty Cardiopulmonary arrest with successful resuscitation Hypothyroidism (acquired) Abnormal results of thyroid function studies Hyperthyroidism MIA (obstructive sleep apnea) Dyspnea Non-rheumatic mitral regurgitation Non-rheumatic mitral valve stenosis Iron deficiency History of diffuse large B-cell lymphoma Anemia in chronic kidney disease Pure hypercholesterolemia Biventricular cardiac pacemaker in situ (~05/26/16) Encounter for long-term (current) use of high-risk medication 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, 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 TIA (transient ischemic attack) (~11/19/15) History of DVT (deep vein thrombosis) Gout Paroxysmal ventricular tachycardia Atrial flutter Cardiomyopathy in disease classified elsewhere MRSA (methicillin resistant Staphylococcus aureus) infection History of non-Hodgkin's lymphoma Endocarditis due to Staphylococcus Benign essential hypertension Home Medications ?Medication ?Instructions ?Recorded ?Last Taken ?Type levothyroxine 75 mcg tablet 75 mcg PO DAILY thyroid 12/16/24 History vitamin B complex-vitamin C-folic 1 tab PO DAILY vitam in 01/10/22 12/16/24 History acid 0.8 mg tablet (Nephro-Baltazar) doxycycline hyclate 100 mg tablet 100 mg PO BID infect ion 11/27/22 12/16/24 History fluconazole 200 mg tablet 200 mg PO DAILY 06/11/23 History sucroferric oxyhydroxide 500 mg 1,000 mg PO QPC 12/15/24 History chewable tablet (Velphoro) albuterol sulfate 90 mcg/actuation 2 puff inhalation Q 4-6H PRN 03/19/24 Unknown History aerosol inhaler shortness of breath or wheez ing alprazolam 1 mg tablet (Xanax) 1 mg PO QHS Sleep 05/2812/15/24 History cyclobenzaprine 10 mg tablet 10 mg PO BID 05/28/24 History midodrine 10 mg tablet 40 mg PO DAILY 05/28/2411/20 History pantoprazole 40 mg tablet,delayed 40 mg PO QAM #90 tab s 12/01/24 12/16/24 Rx release warfarin 1 mg tablet (Jantoven) 1 mg PO .satsun 12/16/24 History warfarin 2 mg tablet 2 mg PO .-sun12/16/2411/20 History amoxicillin 500 mg capsule 2,000 mg PO DAILY PRN DENTA L 12/17/24 Unknown History TREATMENT triamcinolone acetonide 0.1 % 1 applic topical BID PRN SKIN 12/17/24 Unknown History 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 cinacalcet 30 mg tablet 30 mg PO MOTH 01/28/25 Unkno wn History lactulose 10 gram/15 mL oral 20 ml PO QDAY 01/28/25 Un known History solution (Constulose) Allergy/AdvReac Type Severity Reaction Status Date / Time No Known Allergies Allergy Verified 02/12/25 22:16 Family History Father CAD (coronary artery disease) CABG Brother CAD (coronary artery disease) CABG Mother Diabetes Sister Breast cancer Diabetes Sister Cancer breast Diabetes Surgical History S/P arteriovenous (AV) fistula repair History of mechanical aortic valve replacement (~08/24/03) History of heart valve replacement with mechanical valve History of atrioventricular chiquita ablation History of heart valve replacement with mechanical valve History of evacuation of hematoma History of cholecystectomy History of appendectomy dual chamber pacemaker implantation (~10/2010) History of aortic valve replacement (~08/2003) History of mitral valve repair (~08/24/03) History of mechanical aortic valve replacement (~1986) Social History household members: spouse housing: house current occupational status: retired current occupational exposures/hazards: No history of recent travel: No Smoking Status: Never smoker alcohol intake: never substance use type: does not use caffeine: No what type of physical activity do you participate in: weight training and otherdetails: Nustep frequency: 3-4 times per week duration: 45-60 minutes/day seatbelt use: always do you feel safe at home: Yes ROS ROS ED ROS Narrative Constitutional: Denies fevers, chills, headaches, lightness, dizziness Eyes: Denies change in vision double vision blurry vision Cardiovascular: Denies chest pain or palpitation Respiratory: Complains of chronic shortness of breath and coughing with sputum production as noted above complains of Abdomen: Complains of bright red blood per rectum with bowel movements as noted above denies any vomiting : Denies urinary symptoms Neurological: Denies numbness, weakness, tingling Musculoskeletal: Denies back pain Skin: Denies any rashes or lesions EXAM Physical Exam Narrative Exam Narrative: General: Patient was lying in bed rest comfortably did not appear to be in acutedistress Head: Atraumatic, normocephalic Eyes: PERRL bilaterally, EOMI bilateral, no conjunctival injection noted Neck: Soft, supple, trachea midline Cardiovascular: Regular rate and rhythm no murmurs gallops rubs noted Respiratory: Clear to auscultation bilaterally Abdomen: Soft, nondistended, no tenderness palpation, patient has old surgical scar in the middle of his abdomen that they state was from a previous hematoma that he developed after his rectus sheath ripped Rectal exam: No external hemorrhoids noted no bright red blood per rectum noted,patient did have dark stool noted Extremities: +4/5 strength noted in the bilateral per lower extremity, radial pulse +2/4 in about upper extremities Neurological: Patient follow commands knew that he was at [facility] year is 2024 Skin: Warm, dry, intact, no concern for infection surrounding his dialysis port Const Vital Signs: 02/12/25 22:16 02/12/25 23:08 02/13/25 00:03 Temperature 97.5 F L 98.0 F Temperature Source Oral Oral Pulse Rate 88 70 Respiratory Rate 16 24 H Blood Pressure 96/41 L 101/46 L Blood Pressure Mean 59 64 Pulse Ox 95 100 Oxygen Delivery Method Room Air Nasal Cannula Nasal Cannula Oxygen Flow Rate (L/min) 2 2 02/13/25 00:15 02/13/25 01:00 02/13/25 02:00 Temperature 98.0 F 98.0 F 98 F Temperature Source Oral Oral Oral Pulse Rate 70 70 72 Respiratory Rate 24 H 24 H 23 H Blood Pressure 99/41 L 99/41 L 103/39 L Blood Pressure Mean 60 60 60 Pulse Ox 100 100 100 Oxygen Delivery Method Nasal Cannula Nasal Cannula Room Air Oxygen Flow Rate (L/min) 2 2 02/13/25 04:00 02/13/25 05:30 Temperature 98.0 F Temperature Source Temporal Pulse Rate 74 70 Respiratory Rate 24 H 26 H Blood Pressure 97/43 L 103/50 L Blood Pressure Mean 61 67 Pulse Ox 100 96 Oxygen Delivery Method Nasal Cannula Nasal Cannula Oxygen Flow Rate (L/min) 2 2 MDM MDM MDM Narrative Medical decision making narrative: Patient is a 74-year-old male who presents to the emerged part with concern for pneumonia and rectal bleeding while on warfarin. On the differential diagnose includes Melamin to diverticulosis, diverticulitis, hemorrhoids, multifocal pneumonia. Once workup is obtained reviewed he will be reevaluated. Patient will not be given a 30 cc/kg bolus of IV fluids as there is concern for a hypervolemic state as he is due for dialysis. Patient's CBC was reviewed showed no evidence leukocytosis white blood count 7.9, hemoglobin was noted to be 8.1 his baseline is around 10-11 based on previous blood draws, plate count normal at 151. Patient's INR was 1.4, PT of 17.9, sodium normal 139, potassium normal 3.8, creatinine was elevated at 6.24 however he is on dialysis. Patient's lactic acid was elevated to 3, AST and ALTwere 72 and 25 respectively. Patient's ammonia level normal at 27.3. Patient'sCT chest was reviewed showed moderate size left pleural effusion most compatiblewith pleural empyema diagnostic thoracentesis recommended. Reticulonodular groundglass opacities throughout the bilateral lungs compatible with reported history of pneumonia also consider superimposed infection, inflammatory pneumonitis or less likely malignancy or pulmonary manifestation of lymphoma. Prominent lower cervical mediastinal hilar nodes of indeterminate significance. Given that we do not have cardiothoracic surgery as patient likely has an empyema we will discussed with [facility] for transfer as he has been to the facilities in the past. Patient was ordered vancomycin and Zosyn at 1 AM. Patient was given Protonix at1:30 AM as his rectal exam was Hemoccult positive. Patient at bedside originally was refusing IV fluids as she was concerned that he will drowning in secretions from too much fluid and needing dialysis. After discussion with her she was agreeable to a liter of fluid. I discussed this plan with the patient and at bedside they are agreeable with this plan will reach out to [facility] for transfer. After several hours of waiting callback from physician the patient will ultimately be excepted and transferred down to [facility] by Dr. Weber. They were updated with the plan all question concerns answered. Lab Data Labs: Laboratory Results - last 24 hr 02/12/25 23:08 WBC 7.9 RBC 2.34 L Hgb 8.1 L Hct 25.0 L MCV 106.8 H MCH 34.6 H MCHC 32.4 RDW Std Deviation 71.6 H RDW Coeff of Jennifer 18.6 H Plt Count 151 MPV 10.4 Immature Gran % (Auto) 1.000 H Neut % (Auto) 74.5 H Lymph % (Auto) 13.1 L Ingham % (Auto) 9.3 Eos % (Auto) 1.7 Baso % (Auto) 0.4 Absolute Neuts (auto) 5.9 Absolute Lymphs (auto) 1.03 Nucleated RBC % 0.3 Platelet Estimate ADEQUATE RBC Morphology N CHROM Hypochromasia RARE Anisocytosis 1+ Macrocytosis 1+ Ovalocytes RARE PT 17.9 H INR 1.4 APTT 66.1 H Sodium 139 Potassium 3.8 Chloride 94 L Carbon Dioxide 23.1 Anion Gap 21 H BUN 28 H Creatinine 6.24 H Estim Creat Clear Calc 9.56 L* Est GFR (MDRD) Non-Af 9 L BUN/Creatinine Ratio 4.4 L Glucose 97 Lactic Acid 3.0 H* Calcium 8.1 Total Bilirubin 0.59 AST 72 H ALT 25 Alkaline Phosphatase 361 H Total Protein 6.9 Albumin 3.4 Globulin 3.5 Albumin/Globulin Ratio 1.0 Radiography Diagnostic Testing: Clinical Impression(s) from Imaging Studies Abdomen/Pelvis CTA 02/12/25 23:02 IMPRESSION: 1. Patent aortoiliac vessels with moderate mixed atherosclerotic plaque as described. Visualization for acute GI bleed is limited without venous or delayed phase imaging. 2. Multiple small left adrenal nodules and prominent left retroperitoneal nodes,of indeterminate significance. Correlation with prior abdominal imaging recommended if available. If not available, follow-up imaging is recommended. 3. Markedly enlarged prostate. Correlation with PSA recommended. Reading Location: [facility] Chest CT 02/12/25 23:02 IMPRESSION: 1. Moderate-sized left pleural fluid collection, most compatible with pleural empyema, however visualization is limited without the use of IV contrast. Diagnostic thoracentesis could be performed if clinically indicated for further evaluation. 2. Reticulonodular and ground-glass opacities throughout the bilateral lungs, compatible with reported history of pneumonia. Additional considerations include superimposed infection, inflammatory pneumonitis or, less likely malignancy or pulmonary manifestation of lymphoma. 3. Prominent lower cervical, mediastinal and hilar nodes, of indeterminate significance. Correlation with prior imaging recommended. Reading Location: [facility] Discharge Plan Triage Chief Complaint: GI Bleed Other Complaint: Shortness of Breath ED Provider: Kaveh Hadley Dx/Rx/DC Orders Clinical Impression: Pleural effusion on left, Empyema lung, Pneumonia, Acute upper GI bleed, Generalized weakness Prescriptions: No Action alprazolam [Xanax] 1 mg tablet 1 mg PO QHS doxycycline hyclate 100 mg tablet 100 mg PO BID fluconazole 200 mg tablet 200 mg PO DAILY midodrine 10 mg tablet 40 mg PO DAILY Rx Instructions: TAKE UP TO 4 TABS ONLY ON DIALYSIS DAYS Velphoro 500 mg tablet,chewable 1,000 mg PO QPC Rx Instructions: WITH EACH MEAL cyclobenzaprine 10 mg tablet 10 mg PO BID albuterol sulfate 90 mcg/actuation HFA aerosol inhaler 2 puff inhalation Q4-6H PRN (Reason: shortness of breath or wheezing) Patient Comments: pt hasnt taken in over year levothyroxine 75 mcg tablet 75 mcg PO DAILY Nephro-Baltazar 0.8 mg tablet 1 tab PO DAILY warfarin [Jantoven] 1 mg tablet 1 mg PO .satsun Protocol: Dose Management Condition: Sunday Dose/Route: 1 mg Instruction: 1 x 1 mg tablet Condition: Sunday Dose/Route: 2 mg Instruction: 1 x 2 mg tablet Condition: Sunday Dose/Route: 2 mg Instruction: 1 x 2 mg tablet Condition: Sunday Dose/Route: 2 mg Instruction: 1 x 2 mg tablet Condition: Dose/Route: 2 mg Instruction: 1 x 2 mg tablet Condition: Sunday Dose/Route: 2 mg Instruction: 1 x 2 mg tablet Condition: Sunday Dose/Route: 1 mg Instruction: 1 x 1 mg tablet Protocol Text: Adjustment Start Date: Sunday02/11/25 INR Value: 2.7 INR Date: 02/11/25 Patient Comments: BASED ON INR warfarin 2 mg tablet 2 mg PO . Protocol: Dose Management Condition: Sunday Dose/Route: 1 mg Instruction: 1 x 1 mg tablet Condition: Sunday Dose/Route: 2 mg Instruction: 1 x 2 mg tablet Condition: Sunday Dose/Route: 2 mg Instruction: 1 x 2 mg tablet Condition: Sunday Dose/Route: 2 mg Instruction: 1 x 2 mg tablet Condition: Dose/Route: 2 mg Instruction: 1 x 2 mg tablet Condition: Sunday Dose/Route: 2 mg Instruction: 1 x 2 mg tablet Condition: Sunday Dose/Route: 1 mg Instruction: 1 x 1 mg tablet Protocol Text: Adjustment Start Date: Sunday02/11/25 INR Value: 2.7 INR Date: 02/11/25 Patient Comments: BASED ON INR lactulose [Constulose] 10 gram/15 mL solution 20 ml PO QDAY cinacalcet 30 mg tablet 30 mg PO MOTH amoxicillin 500 mg capsule 2,000 mg PO DAILY PRN (Reason: DENTAL TREATMENT) Rx Instructions: TAKE 1 HOUR PRIOR TO TREATMENT triamcinolone acetonide 0.1 % lotion 1 applic topical BID PRN (Reason: SKIN 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) pantoprazole 40 mg tablet,delayed release (DR/EC) 40 mg PO QAM Qty: 90 3RF Primary Care Provider: Castro Ferrara Referrals: Castro Ferrara DO [Primary Care Provider] - Print Language: Malagasy Disposition Disposition: DC/Tx to Another Type of HCF What to do if you have Problems For any increased pain, shortness of breath, bleeding, nausea or vomiting, chestpain, or any unexpected problems, contact your Primary Care Provider. Call [facility] ([phone]) or report to the closest Emergency Room. Call 911 if necessary. 02/13/25 0559 <Electronically signed by Kaveh Hadley DO> Cosigner Signature (if applicable): CC: Dr. 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 * Plan of Care - Shikha Johnson RN - 12/19/2024 4:48 PM EST Problem: Hemodialysis Goal: Safe, Effective Therapy Delivery Outcome: Progressing Goal: Effective Tissue Perfusion Outcome: Progressing Goal: Absence of Infection Signs and Symptoms Outcome: Progressing * Nursing Notes - Shikha Johsnon RN - 12/19/2024 4:48 PM EST End of Hemodialysis/Ultrafiltration Report 2 hr HD tx completed, blood returned. NET UF OFF= 1kg BFR = 350; BVP= 38L. Overall pt Crit Line Profile was B. Post HD access care provided per policy and procedure. Shikha Johnson RN 12/19/24 1530 Tx Assessment/Safety (Pre/Post) Post Procedure Bleach Disinfectant? No Blood Liters Processed (BLP) 38.1 Transport Modality bed Dialyzer Clearance clear Tolerance to Dialysis Procedure well Treatment Assessment Fluid Removed/mL: 1300 ml Machine Temperature 96.8 F (36 C) Profile A Hemodialysis, Lines Secure/Site Visible Yes Hemodialysis, Safety Factors no supplemental oxygenation needed;vital signs stable;access site visible and intact Vital Signs Temp 97.6 F (36.4 C) Temp source Temporal Pulse (Heart Rate) 69 Resp Rate 22 BP 112/55 MAP (mmHg) 78 mmHg O2 Sat (%) 100 % Tunneled Central Line - Double Lumen 10/10/21 1116 red white internal jugular vein, right other (see comments) Placement Date/Time: 10/10/21 1116 Present On Admission : yes Placement Over Guidewire: yes Lumen 1: red Lumen 2: white Location: internal jugular vein, right Device/Lot Number: dialysis/apheresis catheter Size/Length: (c) other (see comments)... Insertion Site WDL WDL Indication/Daily Review of Necessity hemodialysis Treatment Record Stop Time 1530 Fluid Volume Removal 1300 Total Fluid Given 300 Returning to Patient Care Unit Transport Returning to Patient Care Unit Transport yes Sending RN/Tech Name [facility] GIO Cognitive/Neuro/Behavioral WDL Cognitive/Neuro/Behavioral WDL WDL Cardiovascular WDL Cardiac WDL WDL Peripheral Neurovascular WDL Peripheral Neurovascular WDL WDL Respiratory WDL Respiratory WDL WDL Genitourinary WDL Genitourinary WDL ex;voiding ability/characteristics Voiding Characteristics patient on hemodialysis Safety Patient Safety WDL WDL Safety Management Safety Promotion/Fall Prevention fall prevention program maintained General Pain Documentation (Adult, OB, Peds) Presence of Pain denies pain/discomfort Presence of Pain Score (Auto-calculated) 0 Select Pain Scale DVPRS (Defense and Veterans Pain Rating Scale) (Adult- Cognitively Intact) DVPRS (Defense and Veterans Pain Rating Scale) DVPRS: Rest 0- no pain DVPRS: Activity 0- no pain LOC/Significant Event RASS (Crain Agitation-Sedation Scale) 0-->alert and calm Significant Event HD TX ended per policy Post-Hemodialysis Assessment Report given to Katherine POWERS * Nursing Notes - Rosangela Yousif RN - 12/19/2024 1:39 PM EST Final Discharge Planning and Transportation Final Discharge Planning Discharge Disposition: Home Services at Discharge: Outpatient dialysis/Peritoneal dialysis Selected Continued Care - Admitted Since 12/18/2024 Dialysis/Infusion Service Provider Selected Services Address Phone Fax Patient Preferred [facility] D[facility] [address] [address] [phone] -- Internal Comment last updated by ELAYNE Guzman 12/19/2024 1050 Patient does PD at home 12/18/24 1542 Final Discharge Planning Discharge Disposition Home Services at Discharge Outpatient dialysis/Peritoneal dialysis CM/SW AVS Portion Completed Yes Plan Plan discharge home with self care and follow up appointments Patient/Family In Agreement With Plan yes Plan Comments patient has denied any needs for HHC or DME services at this time. Transport Request Mode of Transfer Private Vehicle Plan Plan: discharge home with self care and follow up appointments Patient/Family In Agreement With Plan: yes Plan Comments: patient has denied any needs for HHC or DME services at this time. Transportation Transport Request Mode of Transfer: Private Vehicle CM had conversation with patient/caregiver related to specialty care follow-up. Barriers identified: None Signed, Rosangela MARIE, RN Clinical Office Specialist/ Float * Nursing Notes - Ayana Crouch RN - 12/19/2024 11:47 AM EST Hep B Surface Ag (HBsAg) Negative No Reference Range Provided - November 25, 2024 * Plan of Care - Rachael Platt RN - 12/19/2024 12:58 AM EST Problem: Adult Inpatient Plan of Care Goal: Plan of Care Review Outcome: Progressing Goal: Patient-Specific Goal (Individualized) Outcome: Progressing Problem: Pain Acute Goal: Optimal Pain Control and Function Outcome: Progressing * Plan of Care - Farrah Schafer RN - 12/18/2024 5:20 PM EST RN reassessed pt.at bedside. No significant changes were noted from previous assessment. Pt. is resting comfortably. Personal items and call light are within pt. reach. Problem: Adult Inpatient Plan of Care Goal: Plan of Care Review Outcome: Progressing Goal: Patient-Specific Goal (Individualized) Outcome: Progressing Goal: Absence of Hospital-Acquired Illness or Injury Outcome: Progressing Goal: Optimal Comfort and Wellbeing Outcome: Progressing Goal: Readiness for Transition of Care Outcome: Progressing Problem: Swallowing Impairment Goal: Optimal Eating/Swallowing without Aspiration Outcome: Progressing * Nursing Notes - Rosangela Yousif RN - 12/18/2024 3:00 PM EST Discharge Planning Assessment Is the patient able to participate in the assessment?: Yes Care Management Plan Plan to discharge home with self care and follow up appointments. Initial Discharge Planning Expected Discharge Disposition: Home Transportation Available for Discharge: Family or Friend Anticipated DME: none Anticipated Services at Discharge: Outpatient follow up, Outpatient dialysis/Peritoneal dialysis Patient Assessment Completed: Initial Legal Next of Kin Does the patient have a Guardian?: No Spouse: Yes Name and Contact information: Anna Mcguire [phone] Adult Child(jane), List All Adult Children: Yes Name and Contact information: Alina Mindy [phone] Would you like to add additional adult children?: Yes Name and Contact information: Sean Amador [phone] Parent(s) - List All Living Parents: No Adult Sibling(s), List All Adult Siblings: No Nearest Adult Related by Blood or Adoption: No Patient Reports No Relatives by Blood or Adoption.: No Referral to Social Work to Identify Legal Next of Kin?: No Reviewed and Updated in Demographics? : Yes Advanced Care Planning Has the patient completed Advance Directives?: Not Completed Referral to Social Work for Advance Care Planning? : Patient Declines Medication Management Does the patient have prescription insurance coverage? : Yes Is the patient on Anticoagulation? : No [facility] [address] [place] [address] Living Environment and Support System Is the patient from a facility or snf?: No Living Environment: House Patient Caregiving Responsibilities: Self, Spouse Patient-identified caregiver/support network: Family Who does the patient identify as a teachable caregiver(s)?: Spouse or Partner Services Does the patient use a home health or hospice agency?: No Current with dialysis?: Yes Dialysis Overview Updated?: Yes Does the patient use any community programs or services?: No Does patient use DME? : gila perera DME provider name and contact: unknown Would you like to add additional DME providers?: No Does the patient use oxygen?: No Does patient use medical supplies? : none Anticipated Changes Related to Illness/Injury? : No Initial ADLs Prior to Arrival What is the patient's baseline physical functioning prior to this acute illness?: independent What is the patient's baseline cognitive functioning prior to this acute illness?: independent Is the patient's baseline functioning changed by this acute illness? : No Concerns with patient being able to care for themselves at home? 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 : No Signed, Rosangela AMRIE, RN Clinical Office Specialist/ Float * Nursing Notes - Farrah Schafer RN - 12/18/2024 1:32 PM EST Received Christian Amador to [place] [id number] from outside ED Transferred to bed without incident. Vital signs stable. Pain level is good. Pt oriented to room, call light, and bed alarms. Bed in low position, siderails elevated x2 to allow for pt mobility and bed alarm set. MCB tablet offered, pt acceptedAssessment complete. [facility] Note* Nursing Notes - Shikha Johnson RN - 12/19/2024 4:48 PM EST End of Hemodialysis/Ultrafiltration Report 2 hr HD tx completed, blood returned. NET UF OFF= 1kg BFR = 350; BVP= 38L. Overall pt Crit Line Profile was B. Post HD access care provided per policy and procedure. Shikha Johnson RN 12/19/24 1530 Tx Assessment/Safety (Pre/Post) Post Procedure Bleach Disinfectant? No Blood Liters Processed (BLP) 38.1 Transport Modality bed Dialyzer Clearance clear Tolerance to Dialysis Procedure well Treatment Assessment Fluid Removed/mL: 1300 ml Machine Temperature 96.8 F (36 C) Profile A Hemodialysis, Lines Secure/Site Visible Yes Hemodialysis, Safety Factors no supplemental oxygenation needed;vital signs stable;access site visible and intact Vital Signs Temp 97.6 F (36.4 C) Temp source Temporal Pulse (Heart Rate) 69 Resp Rate 22 BP 112/55 MAP (mmHg) 78 mmHg O2 Sat (%) 100 % Tunneled Central Line - Double Lumen 10/10/21 1116 red white internal jugular vein, right other (see comments) Placement Date/Time: 10/10/21 1116 Present On Admission : yes Placement Over Guidewire: yes Lumen 1: red Lumen 2: white Location: internal jugular vein, right Device/Lot Number: dialysis/apheresis catheter Size/Length: (c) other (see comments)... Insertion Site WDL WDL Indication/Daily Review of Necessity hemodialysis Treatment Record Stop Time 1530 Fluid Volume Removal 1300 Total Fluid Given 300 Returning to Patient Care Unit Transport Returning to Patient Care Unit Transport yes Sending RN/Tech Name [facility] GIO Cognitive/Neuro/Behavioral WDL Cognitive/Neuro/Behavioral WDL WDL Cardiovascular WDL Cardiac WDL WDL Peripheral Neurovascular WDL Peripheral Neurovascular WDL WDL Respiratory WDL Respiratory WDL WDL Genitourinary WDL Genitourinary WDL ex;voiding ability/characteristics Voiding Characteristics patient on hemodialysis Safety Patient Safety WDL WDL Safety Management Safety Promotion/Fall Prevention fall prevention program maintained General Pain Documentation (Adult, OB, Peds) Presence of Pain denies pain/discomfort Presence of Pain Score (Auto-calculated) 0 Select Pain Scale DVPRS (Defense and Veterans Pain Rating Scale) (Adult- Cognitively Intact) DVPRS (Defense and Veterans Pain Rating Scale) DVPRS: Rest 0- no pain DVPRS: Activity 0- no pain LOC/Significant Event RASS (Crain Agitation-Sedation Scale) 0-->alert and calm Significant Event HD TX ended per policy Post-Hemodialysis Assessment Report given to Katherine POWERS [facility]01-31-2025 Plan of care note* Plan of Care - Shikha Johnson RN - 12/19/2024 4:48 PM EST Problem: Hemodialysis Goal: Safe, Effective Therapy Delivery Outcome: Progressing Goal: Effective Tissue Perfusion Outcome: Progressing Goal: Absence of Infection Signs and Symptoms Outcome: Progressing [facility]01-31-2025 Nurse Note* Nursing Notes - Rosangela Yousif RN - 12/19/2024 1:39 PM EST Final Discharge Planning and Transportation Final Discharge Planning Discharge Disposition: Home Services at Discharge: Outpatient dialysis/Peritoneal dialysis Selected Continued Care - Admitted Since 12/18/2024 Dialysis/Infusion Service Provider Selected Services Address Phone Fax Patient Preferred [facility] Dialysis [address], [facility] [address] [phone] -- Internal Comment last updated by ELAYNE Guzman 12/19/2024 1050 Patient does PD at home 12/18/24 1542 Final Discharge Planning Discharge Disposition Home Services at Discharge Outpatient dialysis/Peritoneal dialysis CM/SW AVS Portion Completed Yes Plan Plan discharge home with self care and follow up appointments Patient/Family In Agreement With Plan yes Plan Comments patient has denied any needs for HHC or DME services at this time. Transport Request Mode of Transfer Private Vehicle Plan Plan: discharge home with self care and follow up appointments Patient/Family In Agreement With Plan: yes Plan Comments: patient has denied any needs for HHC or DME services at this time. Transportation Transport Request Mode of Transfer: Private Vehicle CM had conversation with patient/caregiver related to specialty care follow-up. Barriers identified: None Signed, Rosangela MARIE, RN Clinical Office Specialist/ Float 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 Christian Amador is a 74 y.o. 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 Patient is on home dialysis and use HD 4 times a week on , , Sun and Sun. He noticed some leaking of blood around one of the HD ports 2 days ago and only was dialyzed for 1 hour, he contacted his Auditor Tax and they recommended him to go to the ED, after adm, nephrology consulted, exchanged the port at bedside. He tolerated well. Go for HD today.tolerate well, port works well. His INR at 2.0. called to Dr. Flores's DRYW[employer]ANDER Donnell, was instructed to just taking his warfarin 2mg and follow up with him. Ok to dc today. BMI: 27.4 Upon discharge the patient's code was Full Code Please see the remainder of this document for relevant data from this admission as well as the patient's discharge instructions and follow-up appointments. An electronic copy of the patient's recordscan be obtained via [facility] at [email or web address] It has been my pleasure participating in this patient's care. Please contact me with any questions or concerns regarding his hospital stay. The total time of discharge was 30 minutes. Sincerely, Rika Castro MD Division of Hospital Medicine Problem list reviewed at discharge. Relevant Data from this Admission Temp: [97.2 F (36.2 C)-98.1 F (36.7 C)] 97.2 F (36.2 C) Pulse (Heart Rate): [70-92] 71 Resp Rate: [16-18] 18 BP: (106-122)/(56-67) 114/56 O2 Sat (%): [94 %-98 %] 97 % Weight: [79.2 kg (174 lb 8 oz)] 79.2 kg (174 lb 8 oz) Physical Exam Gen: Alert, Awake, NAD Eyes: PERRLA, EOMI, no icterus ENT: MMM, trachea midline Resp: CTA & P, normal respiratory effort. HD port in right chest Cardio: RRR, normal S1, S2, no M/R/G. No KVNG. GI: S/NT/ND, NABS Recent Labs 12/18/24 1512 12/18/24 1754 12/19/24 0325 WBC 9.74 -- 9.85 HGB 11.0* -- 11.3* PLATELET 198 -- 201 SODIUM 133* -- 135 POTASSIUM 5.2* -- 4.5 CO2 28 -- 25 ANIONGAP 17 -- 21* BUN 48* -- 58* CREATSERUM 8.06* -- 9.09* AST 48* -- -- ALT 37 -- -- ALKPHOS 375* -- -- BILITOTAL 1.1 -- -- BILIDIRECT 0.2 -- -- INR -- < > 2.0* PTT -- < > 80.4* < > = values in this interval not displayed. Patient Instructions Future Appointments Date Time Provider Department Center 12/19/2024 12:30 PM DIALYSIS [facility] [address], [facility] 06/24/2025 1:30 PM Vaishnavi Fry DO [facility] Castro Clemons JosiasDO [address] Madi Clemons [facility] [phone] Schedule an appointment as soon as possible for a visit post hospital discharge Medication List for when you go home CONTINUE taking these medications Morning Afternoon Evening Bedtime As Needed ALPRAZolam 1 MG TABS Take 1 tablet by mouth at bedtime. Commonly known as: XANAX Last time this was given: 1 mg on December 18, 2024 8:32 PM COLACE PO Take by mouth 2 times daily. Cyclobenzaprine 10 MG TABS Take 1 tablet by mouth 2 times daily. Commonly known as: FLEXERIL Last time this was given: 10 mg on December 19, 2024 8:29 AM doxycycline hyclate 100 MG CAPS Take 1 capsule by mouth 2 times daily. Commonly known as: VIBRAMYCIN Last time this was given: Ask your nurse or doctor Fluconazole 200 MG TABS Take 1 tablet by mouth See admin instructions. Starting 10/21, take 2 tablets once per day through 10/30. Starting 10/31, take 1 tablet once per day Commonly known as: DIFLUCAN Last time this was given: 200 mg on December 19, 2024 8:29 AM Lactulose 10 GM/15ML SOLN oral solution Take 15 mL by mouth 2 times daily. Commonly known as: CHRONULAC Last time this was given: 20 g on December 19, 2024 8:29 AM Levothyroxine 75 MCG TABS Take 1 tablet by mouth every morning before breakfast. Commonly known as: SYNTHROID Last time this was given: 75 mcg on December 19, 2024 6:27 AM Midodrine HCl 10 MG TABS Take 1 tablet by mouth. 1 Tablet Sunday, Sunday, Sunday 2 Tablets Sun And Sun NEPHRO-BALTAZAR PO Take 1 tablet by mouth at bedtime. Last time this was given: Ask your nurse or doctor Pantoprazole [address] tablet DR Take 1 tablet by mouth daily. Commonly known as: PROTONIX Last time this was given: 40 mg on December 19, 2024 8:29 AM rifAXIMin 550 MG TABS Take 1 tablet by mouth 2 times daily. Commonly known as: XIFAXAN Sensipar 30 MG TABS Take 1 tablet by mouth 3 times weekly. Last time this was given: 30 mg on December 19, 2024 8:36 AM Generic drug: Cinacalcet TYLENOL PO Take by mouth. VELPHORO PO Take 500 mg by mouth 2 times daily. With each meal warfarin 2 MG tablet Take 1 tablet by mouth every evening at 6 PM. Commonly known as: COUMADIN [facility] Nurse Note* Nursing Notes - Ayana Crouch RN - 12/19/2024 11:47 AM EST Hep B Surface Ag (HBsAg) Negative No Reference Range Provided - November 25, 2024 [facility]01-31-2025 History of Present illness Narrative* ELAYNE Guzman - 12/19/2024 10:50 AM EST Care Management Discharge Note Selected Continued Care - Admitted Since 12/18/2024 Dialysis/Infusion Service Provider Selected Services Address Phone Fax Patient Preferred [facility] Dialysis [address] [facility], [facility] [address] [phone] -- Internal Comment last updated by ELAYNE Guzman 12/19/2024 1050 Patient does PD at home Patient to resume dialysis at discharge. Please let Power Superintendent know if patient will need iv antibiotics with dialysis at dc. RN to fax discharge information to dialysis day of discharge : john/avs/dc summary/last dialysis order or flowsheet information. KEV Sanz Clinical Trials Nurse * PATRICIA Nina - 12/19/2024 10:16 AM EST Inpatient Nephrology Follow-up Note Primary Reason for Consult: Fluid and Electrolyte Evaluation/Management for ESRD patients Subjective: Patient was seen in his room prior to TDC repair and again in dialysis. Tolerating session well. Nofurther complaints. Hopeful to go home this evening. ALPRAZolam 1 mg Oral QHS Cinacalcet 30 mg Oral Q MWF Cyclobenzaprine 10 mg Oral Q12H Doxycycline monohydrate 100 mg Oral Q12H Fluconazole 200 mg Oral Daily Lactulose 20 g Oral BID Levothyroxine 75 mcg Oral Before BKF Pantoprazole 40 mg Oral Daily sevelamer 800 mg Oral TID w/meals vitamin C/B complex/folic acid (VIRT-CAPS) 1 capsule Oral Daily Physical Examination: BP 114/56 (BP Location: Right arm, BP Position: Sitting) Pulse 71 Temp 97.2 F (36.2 C) (Oral) Resp 18 Ht 1.702 m (5' 7.01) Wt 79.2 kg (174 lb 8 oz) SpO2 97% BMI 27.32 kg/m Smoking Status Never I/O last 3 completed shifts: In: 220 [P.O.:220] Out: - Constitutional: NAD, awake, comfortable appearing Chest: Unlabored on RA Cardiovascular: Normal rate & regular rhythm. Abdomen: Soft, non-tender, non-distended Extremities: No peripheral edema Neurological: alert, oriented, grossly intact Skin: No rash noted Access: RIJ TDC Relevent Data: Lab Results Component Value Date CREATSERUM 9.09 (H) 12/19/2024 CREATSERUM 8.06 (H) 12/18/2024 CREATSERUM 7.96 (H) 10/22/2024 BUN 58 (H) 12/19/2024 SODIUM 135 12/19/2024 POTASSIUM 4.5 12/19/2024 CHLORIDE 94 (L) 12/19/2024 CO2 25 12/19/2024 CALCIUM 9.4 02/21/2023 PHOSPHORUS 5.8 (H) 02/21/2023 ALBUMIN 4.2 12/18/2024 Lab Results Component Value Date WBC 9.85 12/19/2024 HGB 11.3 (L) 12/19/2024 PLATELET 201 12/19/2024 Lab Results Component Value Date PTH 283.6 (H) 02/04/2023 [id number] 40.3 09/03/2021 [id number] 10.3 (L) 05/15/2016 CALCIUM 9.4 02/21/2023 PHOSPHORUS 5.8 (H) 02/21/2023 Lab Results Component Value Date URIC 10.0 (H) 09/05/2021 Lab Results Component Value Date HGB 11.3 (L) 12/19/2024 MCV 106.2 (H) 12/19/2024 FERRITIN 224.3 09/12/2021 IRON 102 02/12/2023 IRONSATURAT 47 02/12/2023 TIBC 216 (L) 02/12/2023 TRANSFERRIN 173 (L) 02/12/2023 Lab Results Component Value Date HEPATITISB Negative 02/04/2023 Labs and imaging and microbiology data reviewed Assessment: The patient is a 74 y.o. male with a PMH of ESRD on home dialysis, atrial fibrillation, status postAVN ablation, PPM, MRSA bacteremia on life long suppressive antibiotics, fungemia on chronic fluconazole, mechanical mitral valve, MADRID cirrhosis of liver admitted directly from an outside hospital for TDC malfunction. 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 ESRD - HD today s/p TDC repair: 2 hrs, 1 kg UF as tolerated, 3 K bath. If catheter is functioning well he can discharge home today. 2. HTN (goal < 140/90) - Stable at goal. Not on antihypertensives. Resume daily PRN midodrine, and pre-HD midodrine before his next dialysis session. 3. Anemia of CKD (goal Hgb 10-11 g/dL) - Stable at goal. 4. 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 Velphoro non formulary, start sevelamer 800 mg TID with meals Resume cinacalcet 30 mg TIW 5. Nutrition - Cont renal vitamin 1 tab daily. Recommend low salt, low potassium, low phosphate, and high protein diet. Limit fluids to 1.2 L/day. Goal albumin is 4.0 g/dL. 6. Assessment of dialysis access - RIJ TDC s/p repair. Tolerating dialysis, BFR 350 ml/min. . Thank you for allowing us to participate in the care of this patient! PATRICIA Nina Nephrology Pager # [phone] [facility] Procedure note* ROSE Liriano - 12/19/2024 10:48 AM ESTAssociated Order(s): CASE REQUEST DEPARTMENT USE ONLY INTERVENTIONAL RADIOLOGY: REPAIR CENTRAL VENOUS ACCESS DEVICE CATHETER W/O PORT PUMP Post-Procedure Diagnose(s): ESRD (end stage renal disease) CASE REQUEST DEPARTMENT USE ONLY INTERVENTIONAL RADIOLOGY: REPAIR CENTRAL VENOUS ACCESS DEVICE CATHETER W/O PORT PUMP Procedure Date: 12/19/2024 Performed by: ROSE Liriano Authorized by: PATRICIA Nina DIAGNOSIS End stage renal disease Indications Indications: broken port Niland Protocol Verbal consent obtained Risks and benefits were discussed. Consent given by: patient Patient identity confirmed: verbally with patient time out called Checklist was followed: Yes Procedure Details Hand hygiene used Landmarks identified Skin prep agent completely dried prior to procedure Maximum sterile barriers were used: cap, mask, sterile gown, sterile gloves, and large sterile sheet Location: right IJ THDC Patient position: Supine Anesthesia: Local anesthesia used: no Sedation Patient not sedated Procedure stop date: 12/19/2024 Post-procedure Line secured: Yes Dressing applied: Sterile Post Procedure Diagnosis: End stage renal disease Estimated blood loss (ml): 0 Procedure complications: none Patient tolerated the procedure well with no immediate complications I performed the procedure myself Additional Notes OPERATORS ROSE Liriano PREOPERATIVE DIAGNOSIS Broken clamp of a tunneled HD catheter. PROCEDURE 1. Repair of right IJ tunneled hemodialysis catheter. INDICATIONS/CONSENT Christian Amador is a 74 y.o. male, with ESRD , who was referred for repair of his tunneled hemodialysis catheter because of broken clamp. The risks, benefits and alternatives of the procedure were explained and a consent was obtained TECHNIQUE The catheter and skin were prepped and draped in the usual sterile fashion. The port was clamped, old hub were removed and a hub was placed. Port was flushed and capped. There were no complications. ROSE Liriano [facility]01-31-2025 Procedure note* ROSE Liriano - 12/19/2024 10:48 AM ESTAssociated Order(s): CASE REQUEST DEPARTMENT USE ONLY INTERVENTIONAL RADIOLOGY: REPAIR CENTRAL VENOUS ACCESS DEVICE CATHETER W/O PORT PUMP Post-Procedure Diagnose(s): ESRD (end stage renal disease) CASE REQUEST DEPARTMENT USE ONLY INTERVENTIONAL RADIOLOGY: REPAIR CENTRAL VENOUS ACCESS DEVICE CATHETER W/O PORT PUMP Procedure Date: 12/19/2024 Performed by: ROSE Liriano Authorized by: PATRICIA Nina DIAGNOSIS End stage renal disease Indications Indications: broken port Niland Protocol Verbal consent obtained Risks and benefits were discussed. Consent given by: patient Patient identity confirmed: verbally with patient time out called Checklist was followed: Yes Procedure Details Hand hygiene used Landmarks identified Skin prep agent completely dried prior to procedure Maximum sterile barriers were used: cap, mask, sterile gown, sterile gloves, and large sterile sheet Location: right IJ [facility] Patient position: Supine Anesthesia: Local anesthesia used: no Sedation Patient not sedated Procedure stop date: 12/19/2024 Post-procedure Line secured: Yes Dressing applied: Sterile Post Procedure Diagnosis: End stage renal disease Estimated blood loss (ml): 0 Procedure complications: none Patient tolerated the procedure well with no immediate complications I performed the procedure myself Additional Notes OPERATORS ROSE Liriano PREOPERATIVE DIAGNOSIS Broken clamp of a tunneled HD catheter. PROCEDURE 1. Repair of right IJ tunneled hemodialysis catheter. INDICATIONS/CONSENT Christian Amador is a 74 y.o. male, with ESRD , who was referred for repair of his tunneled hemodialysis catheter because of broken clamp. The risks, benefits and alternatives of the procedure were explained and a consent was obtained TECHNIQUE The catheter and skin were prepped and draped in the usual sterile fashion. The port was clamped, old hub were removed and a hub was placed. Port was flushed and capped. There were no complications. ROSE Liriano documented [facility] Hospital Discharge instructions* Discharge Instructions* Kayleigh Izquierdo RN - 12/19/2024 9:44 AM EST Patient Experience Survey Reminder You may receive a survey in the mail within a few weeks regarding your hospitalization. This helps us to improve the care and services we provide at [facility]. We truly appreciate you taking the time to fill this out. We particularly welcome any specific comments you may have (good or bad!) regarding your experienceat [facility] so that we may use them to continue to strive towards excellence for our patients. documented in this encounterOS[facility] Plan of care note* Plan of Care - Rachael Platt RN - 12/19/2024 12:58 AM EST Problem: Adult Inpatient Plan of Care Goal: Plan of Care Review Outcome: Progressing Goal: Patient-Specific Goal (Individualized) Outcome: Progressing Problem: Pain Acute Goal: Optimal Pain Control and Function Outcome: Progressing [facility] Plan of care note* Plan of Care - Farrah Schafer RN - 12/18/2024 5:20 PM EST RN reassessed pt.at bedside. No significant changes were noted from previous assessment. Pt. is resting comfortably. Personal items and call light are within pt. reach. Problem: Adult Inpatient Plan of Care Goal: Plan of Care Review Outcome: Progressing Goal: Patient-Specific Goal (Individualized) Outcome: Progressing Goal: Absence of Hospital-Acquired Illness or Injury Outcome: Progressing Goal: Optimal Comfort and Wellbeing Outcome: Progressing Goal: Readiness for Transition of Care Outcome: Progressing Problem: Swallowing Impairment Goal: Optimal Eating/Swallowing without Aspiration Outcome: Progressing [facility] Nurse Note* Nursing Notes - Rosangela Yousif RN - 12/18/2024 3:00 PM EST Discharge Planning Assessment Is the patient able to participate in the assessment?: Yes Care Management Plan Plan to discharge home with self care and follow up appointments. Initial Discharge Planning Expected Discharge Disposition: Home Transportation Available for Discharge: Family or Friend Anticipated DME: none Anticipated Services at Discharge: Outpatient follow up, Outpatient dialysis/Peritoneal dialysis Patient Assessment Completed: Initial Legal Next of Kin Does the patient have a Guardian?: No Spouse: Yes Name and Contact information: Anna Mcguire [phone] Adult Child(jane), List All Adult Children: Yes Name and Contact information: Alina Guillen [phone] Would you like to add additional adult children?: Yes Name and Contact information: Sean Amador [phone] Parent(s) - List All Living Parents: No Adult Sibling(s), List All Adult Siblings: No Nearest Adult Related by Blood or Adoption: No Patient Reports No Relatives by Blood or Adoption.: No Referral to Social Work to Identify Legal Next of Kin?: No Reviewed and Updated in Demographics? : Yes Advanced Care Planning Has the patient completed Advance Directives?: Not Completed Referral to Social Work for Advance Care Planning? : Patient Declines Medication Management Does the patient have prescription insurance coverage? : Yes Is the patient on Anticoagulation? : No [facility] [address], [address] [place] [address] Living Environment and Support System Is the patient from a facility or snf?: No Living Environment: House Patient Caregiving Responsibilities: Self, Spouse Patient-identified caregiver/support network: Family Who does the patient identify as a teachable caregiver(s)?: Spouse or Partner Services Does the patient use a home health or hospice agency?: No Current with dialysis?: Yes Dialysis Overview Updated?: Yes Does the patient use any community programs or services?: No Does patient use DME? : gila perera DME provider name and contact: unknown Would you like to add additional DME providers?: No Does the patient use oxygen?: No Does patient use medical supplies? : none Anticipated Changes Related to Illness/Injury? : No Initial ADLs Prior to Arrival What is the patient's baseline physical functioning prior to this acute illness?: independent What is the patient's baseline cognitive functioning prior to this acute illness?: independent Is the patient's baseline functioning changed by this acute illness? : No Concerns with patient being able to care for themselves at home? 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 : No Signed, Rosangela MARIE, GIO Clinical Office Specialist/ Float [facility] Consult note* Trina Carmelina Tavarezt, BUSINESS SERVICES SPECIALIST SALES-CUSTOMER ASSISTANT - 12/18/2024 2:33 PM ESTAssociated Order(s): IP CONSULT TO NEPHROLOGY [facility] DIV[facility] NEPHROLOGY INPATIENT CONSULTATION NOTE I saw Christian Amador at the [facility] on 12/18/2024. Reason for Consultation: ESRD Evaluation and management Referring Provider: Malcom Araiza MD History of Present Illness: Christian Amador is a 74 y.o. male who we have been consulted to see on 12/18/2024 Patient has a past medical history of ESRD on home dialysis, atrial fibrillation, status post AVN ablation, PPM, MRSA bacteremia on life long suppressive antibiotics, fungemia on chronic fluconazole,mechanical mitral valve, MADRID cirrhosis of liver admitted directly from an outside hospital for TDCmalfunction. He first noticed blood slowly leaking from the distal portion (blue port) of his TDC during dialysis on Sunday. 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 This did not resolve the issue. He was transferred to [facility] for further intervention. His last dialysis session was Sunday. He is hopeful the catheter can be repaired rather than replaced as he is on warfarin for a mechanical valve and will require heparin bridge. He states it has taken 2 weeks to become therapeutic during previous heparin bridge occurrences. He overall feels well. He denies fevers, chills, chest pain, SOB, headaches, dizziness, abdominal pain, nausea, vomiting and diarrhea. Nephrology is consulted for ESRD management. Dialysis History: Dialysis Prescription: The patient dialyzes at home (HHD) on // under the care of Dr. Sharron Calderon Dialysis Vintage: 2020 Access History: RIJ TDC Residual Kidney Function: Anuric Past Medical History: Diagnosis Date Anemia Arrhythmia Arthritis Atrial flutter Atrial tachycardia BPH (benign prostatic hyperplasia) CAD (coronary artery disease) Cardiomyopathy Congestive heart failure, unspecified Essential hypertension, benign GERD (gastroesophageal reflux disease) Gout Hematochezia Hematoma 03/2012, 04/2012 HTN (hypertension), benign Hyperlipidemia Hypothyroidism Kidney stones Leukocytosis Liver disease Lymphoma h/o chemo Lymphoma MIA (obstructive sleep apnea) Pacemaker Rheumatic heart disease S/P AVR (aortic valve replacement) mechanical S/P radiofrequency ablation operation for arrhythmia Seizure 06/08 Septic shock TIA (transient ischemic attack) Vascular disease Past Surgical History: Procedure Laterality Date UPGRADE GENERATOR PACEMAKER SINGLE TO DUAL CHAMBER SYSTEM N/A 04/02/2024 Laterality: N/A; Surgeon: Ronnie Ferrari MD; Location: [facility] EP EGD DIAGNOSTIC 06/2022 INSERTION CVC TUNNELED N/A 10/10/2021 Laterality: N/A; Surgeon: Remy Ferrer MD; Location: [facility] INTERVENTIONAL RADIOLOGY (VIR) INSERTION CVC TUNNELED N/A 10/03/2021 Laterality: N/A; Surgeon: Kaylin Duran II, MD; Location: [facility] INTERVENTIONAL RADIOLOGY (VIR) PLACEMENT PROBE FOR TRANSESOPHAGEAL ECHOCARDIOGRAPHY N/A 09/23/2021 Laterality: N/A; Surgeon: Sadia Nieto MD; Location: [facility] MAIN OR ESS NASAL DIAGNOSTIC Bilateral 09/20/2021 Laterality: Bilateral; Surgeon: You Wise MD; Location: [facility] MAIN OR ESS SPHENOID SINUSOTOMY WITH REMOVAL TISSUE Right 09/20/2021 Laterality: Right; Surgeon: You Wise MD; [facility] TOTAL ETHMOIDECTOMY Right 09/20/2021 Laterality: Right; Surgeon: You Wise MD; Location: [facility] MAIN OR REMOVAL CVC TUNNELED Right 07/07/2016 Laterality: Right; Surgeon: Kaylin Grider MD; Location: [facility] INTERVENTIONAL RADIOLOGY (VIR) CARDIAC VEIN ELECTRODE PLACEMENT FOR LV PACING N/A 05/26/2016 Laterality: N/A; Surgeon: Yi Cody MD; Location: [facility] EP PACEMAKER PLACEMENT N/A 05/26/2016 Laterality: N/A; Surgeon: Yi Cody MD; Location: [facility] EP INSERTION CVC TUNNELED Right 05/19/2016 Laterality: Right; Surgeon: Kaylin Grider MD; Location: [facility] INTERVENTIONAL RADIOLOGY (VIR) INSERTION CVC TUNNELED Left 05/18/2016 Laterality: Left; Surgeon: Kaylin Grider MD; Location: [facility] INTERVENTIONAL RADIOLOGY (VIR) [...] Versa CARDIAC PACEMAKER PLACEMENT 08/31/2003 Implant: [employer] [id number] [place] [address] APPENDECTOMY AR ANES HRT PERICRD SAC&GRT 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 Scheduled Meds: ALPRAZolam 1 mg Oral QHS [START ON 12/19/2024] Cinacalcet 30 mg Oral Q MWF Cyclobenzaprine 10 mg Oral Q12H Doxycycline monohydrate 100 mg Oral Q12H [START ON 12/19/2024] Fluconazole 200 mg Oral Daily Lactulose 20 g Oral BID [START ON 12/19/2024] Levothyroxine 75 mcg Oral Before BKF Pantoprazole 40 mg Oral Daily sevelamer 800 mg Oral TID w/meals vitamin C/B complex/folic acid (VIRT-CAPS) 1 capsule Oral Daily IV Infusions: No Known Allergies Family History Problem Relation Age of Onset Diabetes Mother Heart Surgery Father CABG x5 Heart Disease - Other Father Coronary Artery Disease Father Breast Cancer Sister Diabetes Sister Heart Surgery Brother CABG x3 Heart Disease - Other Brother Coronary Artery Disease Brother Heart Disease - Other Paternal Aunt Diabetes Paternal Aunt Heart Disease - Other Paternal Uncle Diabetes Paternal Uncle Myocardial Infarction Paternal Uncle Heart Defect Paternal Uncle all Paternal uncles with heart problems Sudden Cardiac Paternal Uncle Myocardial Infarction Paternal Uncle Social History Socioeconomic History Marital status: Spouse name: Not on file Number of children: Not on file Years of education: Not on file Highest education level: Not on file Occupational History Not on file Tobacco Use Smoking status: Never Smokeless tobacco: Never Vaping Use Vaping status: Never Used Substance and Sexual Activity Alcohol use: Never Drug use: No Sexual activity: Not Currently Partners: Female control/protection: Female Sterilization, Menopause, Tubal Ligation Other Topics Concern Occupational Exposure No Hobby Hazards No Social History Narrative Merged History Encounter Social Determinants of Health Financial Resource Strain: Not on file Food Insecurity: Not on file Transportation Needs: Not on file Physical Activity: Not on file Stress: Not on file Social Connections: Not on file Intimate Partner Violence: Not on file Housing Stability: Not on file Review of Systems: Negative except for as stated in HPI Physical Examination: Vital Signs BP 122/58 (BP Location: Right arm, BP Position: Sitting) Pulse 92 Temp 97.4 F (36.3 C) (Oral) Resp 16 Ht 1.702 m (5' 7) Wt 79.2 kg (174 lb 8 oz) SpO2 94% BMI 27.33 kg/m Smoking Status Never No intake/output data recorded. Constitutional: Well developed, well nourished, comfortable appearing HEENT: Normocephalic and atraumatic. Sclera non-icteric, mucus membranes moist Neck: Supple, no masses Chest: Respiratory effort is normal. The lungs are clear without rales or rhonchi. Cardiovascular: Exam reveals no gallop or rub. 2+ peripheral pulses bilaterally Abdominal: Soft. No tenderness, no rebound Musculoskeletal: Grossly normal range of motion all extremities, no joint swelling Extremities: Warm and well perfused. No peripheral edema Neurological: alert, oriented, grossly intact Skin: No obvious rash Dialysis Access: [facility] Relevant Data: Lab Results Component Value Date SODIUM 138 10/22/2024 POTASSIUM 3.7 10/22/2024 CHLORIDE 92 (L) 10/22/2024 CO2 31 10/22/2024 BUN 57 (H) 10/22/2024 CREATSERUM 7.96 (H) 10/22/2024 GLUCOSE 94 04/02/2024 Lab Results Component Value Date WBC 9.91 10/22/2024 HGB 11.5 (L) 10/22/2024 HCT 36.5 (L) 10/22/2024 PLATELET 180 10/22/2024 MCV 106.7 (H) 10/22/2024 Lab Results Component Value Date SPGRVTYUR 1.024 09/12/2021 GLUCOSEURINE Negative 09/12/2021 BILIRUBINURI NEGATIVE 04/27/2012 KETONESURINE Negative 09/12/2021 BLOODURINE Large (A) 09/12/2021 NITRITESURIN Negative 09/12/2021 LEUKOCESTUR Small (A) 09/12/2021 WBCURINE 10-20 (A) 09/12/2021 RBCURINE >20 (A) 09/12/2021 BACTERIAURIN TRACE (A) 09/12/2021 Lab Results Component Value Date CREATSERUM 7.96 (H) 10/22/2024 CREATSERUM 7.94 (H) 04/02/2024 CREATSERUM 8.10 (H) 12/05/2023 CREATSERUM 2.06 (H) 08/07/2016 CREATSERUM 3.0 06/05/2016 CREATSERUM 2.41 (H) 06/01/2016 CREATSERUM 2.29 (H) 05/31/2016 CREATSERUM 0.77 11/25/2014 CREATSERUM 1.35 (H) 11/26/2013 CREATSERUM 1.17 (H) 05/07/2013 Lab Results Component Value Date PTH 283.6 (H) 02/04/2023 CALCIUM 9.4 02/21/2023 PHOSPHORUS 5.8 (H) 02/21/2023 Assessment/Plan: Assessment: The patient is a 74 y.o. male with a PMH of ESRD on home dialysis, atrial fibrillation, status postAVN ablation, PPM, MRSA bacteremia on life long suppressive antibiotics, fungemia on chronic fluconazole, mechanical mitral valve, MADRID cirrhosis of liver admitted directly from an outside hospital for TDC malfunction. 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 ESRD - No indication for HD today. Will resume HD tomorrow pending TDC repair. 2. HTN (goal < 140/90) - Stable at goal. Not on antihypertensives. Resume daily PRN midodrine, and pre-HD midodrine before his next dialysis session. 3. Anemia of CKD (goal Hgb 10-11 g/dL) - Transfuse to maintain hgb > 7. 4. 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 Velphoro non formulary, start sevelamer 800 mg TID with meals Resume cinacalcet 30 mg TIW 5. Nutrition - Cont renal vitamin 1 tab daily. Recommend low salt, low potassium, low phosphate, and high protein diet. Limit fluids to 1.2 L/day. Goal albumin is 4.0 g/dL. 6. Assessment of dialysis access - RIJ TDC. Tape to distal portion of the blue port. To be further assessed tomorrow. . Thank you for allowing us to participate in the care of this patient! PATRICIA Nina Nephrology Pager # [phone] [facility]01-30-2025 Consult note* PATRICIA Nina - 12/18/2024 2:33 PM ESTAssociated Order(s): IP CONSULT TO NEPHROLOGY [facility] NEPHROLOGY INPATIENT CONSULTATION NOTE I saw Christian Amador at the [facility] on 12/18/2024. Reason for Consultation: ESRD Evaluation and management Referring Provider: Malcom Araiza MD History of Present Illness: Christian Amador is a 74 y.o. male who we have been consulted to see on 12/18/2024 Patient has a past medical history of ESRD on home dialysis, atrial fibrillation, status post AVN ablation, PPM, MRSA bacteremia on life long suppressive antibiotics, fungemia on chronic fluconazole,mechanical mitral valve, MADRID cirrhosis of liver admitted directly from an outside hospital for TDCmalfunction. He first noticed blood slowly leaking from the distal portion (blue port) of his TDC during dialysis on Sunday. 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 This did not resolve the issue. He was transferred to [facility] for further intervention. His last dialysis session was Sunday. He is hopeful the catheter can be repaired rather than replaced as he is on warfarin for a mechanical valve and will require heparin bridge. He states it has taken 2 weeks to become therapeutic during previous heparin bridge occurrences. He overall feels well. He denies fevers, chills, chest pain, SOB, headaches, dizziness, abdominal pain, nausea, vomiting and diarrhea. Nephrology is consulted for ESRD management. Dialysis History: Dialysis Prescription: The patient dialyzes at home (HHD) on // under the care of Dr. Sharron Calderon Dialysis Vintage: 2020 Access History: [facility] Residual Kidney Function: Anuric Past Medical History: Diagnosis Date Anemia Arrhythmia Arthritis Atrial flutter Atrial tachycardia BPH (benign prostatic hyperplasia) CAD (coronary artery disease) Cardiomyopathy Congestive heart failure, unspecified Essential hypertension, benign GERD (gastroesophageal reflux disease) Gout Hematochezia Hematoma 03/2012, 04/2012 HTN (hypertension), benign Hyperlipidemia Hypothyroidism Kidney stones Leukocytosis Liver disease Lymphoma h/o chemo Lymphoma MIA (obstructive sleep apnea) Pacemaker Rheumatic heart disease S/P AVR (aortic valve replacement) mechanical S/P radiofrequency ablation operation for arrhythmia Seizure 06/08 Septic shock TIA (transient ischemic attack) Vascular disease Past Surgical History: Procedure Laterality Date UPGRADE GENERATOR PACEMAKER SINGLE TO DUAL CHAMBER SYSTEM N/A 04/02/2024 Laterality: N/A; Surgeon: Ronnie Ferrari MD; Location: [facility] EP EGD DIAGNOSTIC 06/2022 INSERTION CVC TUNNELED N/A 10/10/2021 Laterality: N/A; Surgeon: Remy Ferrer MD; Location: [facility] INTERVENTIONAL RADIOLOGY (VIR) INSERTION CVC TUNNELED N/A 10/03/2021 Laterality: N/A; Surgeon: Kaylin Duran II, MD; Location: [facility] INTERVENTIONAL RADIOLOGY (VIR) PLACEMENT PROBE FOR TRANSESOPHAGEAL ECHOCARDIOGRAPHY N/A 09/23/2021 Laterality: N/A; Surgeon: Sadia Nieto MD; Location: [facility] MAIN OR ESS NASAL DIAGNOSTIC Bilateral 09/20/2021 Laterality: Bilateral; Surgeon: You Wise MD; Location: [facility] MAIN OR ESS SPHENOID SINUSOTOMY WITH REMOVAL TISSUE Right 09/20/2021 Laterality: Right; Surgeon: You Wise MD; Location: [facility] MAIN OR ESS TOTAL ETHMOIDECTOMY Right 09/20/2021 Laterality: Right; Surgeon: You Wise MD; Location: [facility] MAIN OR REMOVAL CVC TUNNELED Right 07/07/2016 Laterality: Right; Surgeon: Kaylin Grider MD; Location: [facility] INTERVENTIONAL RADIOLOGY (VIR) CARDIAC VEIN ELECTRODE PLACEMENT FOR LV PACING N/A 05/26/2016 Laterality: N/A; Surgeon: Yi Cody MD; Location: [facility] EP PACEMAKER PLACEMENT N/A 05/26/2016 Laterality: N/A; Surgeon: Yi Cody MD; Location: [facility] EP INSERTION CVC TUNNELED Right 05/19/2016 Laterality: Right; Surgeon: Kaylin Grider MD; Location: [facility] INTERVENTIONAL RADIOLOGY (VIR) INSERTION CVC TUNNELED Left 05/18/2016 Laterality: Left; Surgeon: Kaylin Grider MD; Location: [facility] INTERVENTIONAL RADIOLOGY (VIR) [...] Versa CARDIAC PACEMAKER PLACEMENT 08/31/2003 Implant: [employer]tronic [id number] [place] [address] APPENDECTOMY AR ANES HRT PERICRD SAC&GRT 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 Scheduled Meds: ALPRAZolam 1 mg Oral QHS [START ON 12/19/2024] Cinacalcet 30 mg Oral Q MWF Cyclobenzaprine 10 mg Oral Q12H Doxycycline monohydrate 100 mg Oral Q12H [START ON 12/19/2024] Fluconazole 200 mg Oral Daily Lactulose 20 g Oral BID [START ON 12/19/2024] Levothyroxine 75 mcg Oral Before BKF Pantoprazole 40 mg Oral Daily sevelamer 800 mg Oral TID w/meals vitamin C/B complex/folic acid (VIRT-CAPS) 1 capsule Oral Daily IV Infusions: No Known Allergies Family History Problem Relation Age of Onset Diabetes Mother Heart Surgery Father CABG x5 Heart Disease - Other Father Coronary Artery Disease Father Breast Cancer Sister Diabetes Sister Heart Surgery Brother CABG x3 Heart Disease - Other Brother Coronary Artery Disease Brother Heart Disease - Other Paternal Aunt Diabetes Paternal Aunt Heart Disease - Other Paternal Uncle Diabetes Paternal Uncle Myocardial Infarction Paternal Uncle Heart Defect Paternal Uncle all Paternal uncles with heart problems Sudden Cardiac Paternal Uncle Myocardial Infarction Paternal Uncle Social History Socioeconomic History Marital status: Spouse name: Not on file Number of children: Not on file Years of education: Not on file Highest education level: Not on file Occupational History Not on file Tobacco Use Smoking status: Never Smokeless tobacco: Never Vaping Use Vaping status: Never Used Substance and Sexual Activity Alcohol use: Never Drug use: No Sexual activity: Not Currently Partners: Female control/protection: Female Sterilization, Menopause, Tubal Ligation Other Topics Concern Occupational Exposure No Hobby Hazards No Social History Narrative Merged History Encounter Social Determinants of Health Financial Resource Strain: Not on file Food Insecurity: Not on file Transportation Needs: Not on file Physical Activity: Not on file Stress: Not on file Social Connections: Not on file Intimate Partner Violence: Not on file Housing Stability: Not on file Review of Systems: Negative except for as stated in HPI Physical Examination: Vital Signs BP 122/58 (BP Location: Right arm, BP Position: Sitting) Pulse 92 Temp 97.4 F (36.3 C) (Oral) Resp 16 Ht 1.702 m (5' 7) Wt 79.2 kg (174 lb 8 oz) SpO2 94% BMI 27.33 kg/m Smoking Status Never No intake/output data recorded. Constitutional: Well developed, well nourished, comfortable appearing HEENT: Normocephalic and atraumatic. Sclera non-icteric, mucus membranes moist Neck: Supple, no masses Chest: Respiratory effort is normal. The lungs are clear without rales or rhonchi. Cardiovascular: Exam reveals no gallop or rub. 2+ peripheral pulses bilaterally Abdominal: Soft. No tenderness, no rebound Musculoskeletal: Grossly normal range of motion all extremities, no joint swelling Extremities: Warm and well perfused. No peripheral edema Neurological: alert, oriented, grossly intact Skin: No obvious rash Dialysis Access: [facility] Relevant Data: Lab Results Component Value Date SODIUM 138 10/22/2024 POTASSIUM 3.7 10/22/2024 CHLORIDE 92 (L) 10/22/2024 CO2 31 10/22/2024 BUN 57 (H) 10/22/2024 CREATSERUM 7.96 (H) 10/22/2024 GLUCOSE 94 04/02/2024 Lab Results Component Value Date WBC 9.91 10/22/2024 HGB 11.5 (L) 10/22/2024 HCT 36.5 (L) 10/22/2024 PLATELET 180 10/22/2024 MCV 106.7 (H) 10/22/2024 Lab Results Component Value Date SPGRVTYUR 1.024 09/12/2021 GLUCOSEURINE Negative 09/12/2021 BILIRUBINURI NEGATIVE 04/27/2012 KETONESURINE Negative 09/12/2021 BLOODURINE Large (A) 09/12/2021 NITRITESURIN Negative 09/12/2021 LEUKOCESTUR Small (A) 09/12/2021 WBCURINE 10-20 (A) 09/12/2021 RBCURINE >20 (A) 09/12/2021 BACTERIAURIN TRACE (A) 09/12/2021 Lab Results Component Value Date CREATSERUM 7.96 (H) 10/22/2024 CREATSERUM 7.94 (H) 04/02/2024 CREATSERUM 8.10 (H) 12/05/2023 CREATSERUM 2.06 (H) 08/07/2016 CREATSERUM 3.0 06/05/2016 CREATSERUM 2.41 (H) 06/01/2016 CREATSERUM 2.29 (H) 05/31/2016 CREATSERUM 0.77 11/25/2014 CREATSERUM 1.35 (H) 11/26/2013 CREATSERUM 1.17 (H) 05/07/2013 Lab Results Component Value Date PTH 283.6 (H) 02/04/2023 CALCIUM 9.4 02/21/2023 PHOSPHORUS 5.8 (H) 02/21/2023 Assessment/Plan: Assessment: The patient is a 74 y.o. male with a PMH of ESRD on home dialysis, atrial fibrillation, status postAVN ablation, PPM, MRSA bacteremia on life long suppressive antibiotics, fungemia on chronic fluconazole, mechanical mitral valve, MADRID cirrhosis of liver admitted directly from an outside hospital for TDC malfunction. 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 ESRD - No indication for HD today. Will resume HD tomorrow pending TDC repair. 2. HTN (goal < 140/90) - Stable at goal. Not on antihypertensives. Resume daily PRN midodrine, and pre-HD midodrine before his next dialysis session. 3. Anemia of CKD (goal Hgb 10-11 g/dL) - Transfuse to maintain hgb > 7. 4. 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 Velphoro non formulary, start sevelamer 800 mg TID with meals Resume cinacalcet 30 mg TIW 5. Nutrition - Cont renal vitamin 1 tab daily. Recommend low salt, low potassium, low phosphate, and high protein diet. Limit fluids to 1.2 L/day. Goal albumin is 4.0 g/dL. 6. Assessment of dialysis access - RIJ TDC. Tape to distal portion of the blue port. To be further assessed tomorrow. . Thank you for allowing us to participate in the care of this patient! Trina Graham APRN-[facility] Nephrology Pager # [phone] [facility] History and physical note* Malcom Araiza MD - 12/18/2024 2:03 PM EST Images from the original note were not included. Hospital Medicine Admission History & Physical Patient: Christian Amador, 1950, [id number] Physician: Malcom Fuller MD, Attending Physician, Pager #[phone], [facility] service Date of face to face patient encounter: 12/18/2024. Assessment and Plan Christian Amador is a 74 y.o. 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 ESRD on home HD for the last 1 year. He usually do HD on , Sun, Sun and Sunday. Noted leaking around one of the HD port and was advised to go to the ED, from ED he was admitted [facility]. Consult Nephrology. Check labs. - Renal diet, close I&O monitoring - Home Velphoro -> sevelamer 800mg tid while inpatient (not on formulary) HD associated hypotension: takes Midodrine as needed on the HD days. History of MRSA bacteremia complicated by mechanical heart valve endocarditis s/p replacement of mechanical aortic valve - goal 2.5-3.5, on warfarin at home. Check INR Likely need reversal of INR and heparin bridge. continue Doxycycline 100 mg BID (on it life long) Also continue Fluconazole due to fungemia 200 mg daily. MADRID cirrhosis with history of hepatic encephalopathy. No longer able to afford Rifaximin, Currently on lactulose. Monitor mental status, adjust lactulose as needed. Also reported mild cognitive impairment. Check LFT History of CAD, heart failure, afib/flutter and SSS s/p AVN ablation and PPM placement - no acute issues at this time. - Off GDMT due to hypotension with HD DLBCL (s/p treatment now in remission), GERD- continue pantoprazole Hypothyroidism- continue Synthroid DVT prophylaxis with warfarin/heparin Disposition: Home when improved Code status is Full Code Discussed with and updated regarding the plan of care. Chief Complaint Dialysis access problem History of Presenting Illness Christian Amador is a 74 y.o. male that has been admitted to [facility]. Christian Amador is a 74 y.o. 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 Patient is on home dialysis and use HD 4 times a week on , , Sun and Sun. He noticed some leaking of blood around one of the HD ports 2 days ago and only was dialyzed for 1 hour, he contacted hisNephrologist and they recommended him to go to the ED, he was seen by a surgeon who recommended to tape the port, but the leaking recurred and he went back to the ED [facility]. He denied any chest pain, shortness of breath or leg swelling. Takes midodrine during HD days when BP runs low. Medical History Past Medical History: Diagnosis Date Anemia Arrhythmia Arthritis Atrial flutter Atrial tachycardia BPH (benign prostatic hyperplasia) CAD (coronary artery disease) Cardiomyopathy Congestive heart failure, unspecified Essential hypertension, benign GERD (gastroesophageal reflux disease) Gout Hematochezia Hematoma 03/2012, 04/2012 HTN (hypertension), benign Hyperlipidemia Hypothyroidism Kidney stones Leukocytosis Liver disease Lymphoma h/o chemo Lymphoma MIA (obstructive sleep apnea) Pacemaker Rheumatic heart disease S/P AVR (aortic valve replacement) mechanical S/P radiofrequency ablation operation for arrhythmia Seizure 06/08 Septic shock TIA (transient ischemic attack) Vascular disease Past Surgical History: Procedure Laterality Date UPGRADE GENERATOR PACEMAKER SINGLE TO DUAL CHAMBER SYSTEM N/A 04/02/2024 Laterality: N/A; Surgeon: Ronnie Ferrari MD; Location: [facility] EP EGD DIAGNOSTIC 06/2022 INSERTION CVC TUNNELED N/A 10/10/2021 Laterality: N/A; Surgeon: Remy Ferrer MD; Location: [facility] INTERVENTIONAL RADIOLOGY (VIR) INSERTION CVC TUNNELED N/A 10/03/2021 Laterality: N/A; Surgeon: Kaylin Duran II, MD; Location: [facility] INTERVENTIONAL RADIOLOGY (VIR) PLACEMENT PROBE FOR TRANSESOPHAGEAL ECHOCARDIOGRAPHY N/A 09/23/2021 Laterality: N/A; Surgeon: Sadia Nieto MD; Location: [facility] MAIN OR ESS NASAL DIAGNOSTIC Bilateral 09/20/2021 Laterality: Bilateral; Surgeon: You Wise MD; Location: [facility] MAIN OR ESS SPHENOID SINUSOTOMY WITH REMOVAL TISSUE Right 09/20/2021 Laterality: Right; Surgeon: You Wise MD; Location: [facility] MAIN OR ESS TOTAL ETHMOIDECTOMY Right 09/20/2021 Laterality: Right; Surgeon: You Wise MD; Location: [facility] MAIN OR REMOVAL CVC TUNNELED Right 07/07/2016 Laterality: Right; Surgeon: Kaylin Grider MD; Location: [facility] INTERVENTIONAL RADIOLOGY (VIR) CARDIAC VEIN ELECTRODE PLACEMENT FOR LV PACING N/A 05/26/2016 Laterality: N/A; Surgeon: Yi Cody MD; Location: [facility] EP PACEMAKER PLACEMENT N/A 05/26/2016 Laterality: N/A; Surgeon: Yi Cody MD; Location: [facility] EP INSERTION CVC TUNNELED Right 05/19/2016 Laterality: Right; Surgeon: Kaylin Grider MD; Location[facility] INTERVENTIONAL RADIOLOGY (VIR) INSERTION CVC TUNNELED Left 05/18/2016 Laterality: Left; Surgeon: Kaylin Grider MD; Location: [facility] INTERVENTIONAL RADIOLOGY (VIR) PACEMAKER ELECTRODE REMOVAL N/A 05/08/2016 Laterality: N/A; Surgeon: Luigi Mart MD; Location: [facility] EP COLONOSCOPY DIAGNOSTIC N/A 03/20/2016 Laterality: N/A; Surgeon: Jeremiah García MD; Location: [facility] ENDOSCOPY EP IMPLANT BIVENTRICULAR PACEMAKER TOTAL 08/07/2013 [...] Versa CARDIAC PACEMAKER PLACEMENT 08/31/2003 Implant: [employer] [id number] [place] [address] APPENDECTOMY AR ANES HRT PERICRD SAC&GRT 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 Social History Social History Tobacco Use Smoking status: Never Smokeless tobacco: Never Substance Use Topics Alcohol use: Never Social History Substance and Sexual Activity Drug Use No Family History family history includes Breast Cancer in his sister; Coronary Artery Disease in his brother and father; Diabetes in his mother, paternal aunt, paternal uncle, and sister; Heart Defect in his paternaluncle; Heart Disease - Other in his brother, father, paternal aunt, and paternal uncle; Heart Surgery in his brother and father; Myocardial Infarction in his paternal uncle and paternal uncle; SuddenCardiac in his paternal uncle. MEDICATIONS Prior to Admission Medications Prescriptions Last Dose Informant Patient Reported? Taking? ALPRAZolam 1 MG tablet Yes No Sig: Take 1 tablet by mouth at bedtime. Acetaminophen (TYLENOL PO) Yes No Sig: Take by mouth. B Obpbcec-Z-Qvkkc Acid (NEPHRO-BALTAZAR PO) Yes No Sig: Take 1 tablet by mouth at bedtime. Cyclobenzaprine 10 MG tablet Yes No Sig: Take 1 tablet by mouth 2 times daily. Docusate Sodium (COLACE PO) Self Yes No Sig: Take by mouth 2 times daily. Lactulose 10 GM/15ML Solution oral solution Yes No Sig: Take 15 mL by mouth 2 times daily. Midodrine HCl 10 MG tablet Yes No Sig: Take 1 tablet by mouth. 1 Tablet Sunday, Sunday, Sunday 2 Tablets Sun And Sun Sensipar 30 MG tablet Yes No Sig: Take 1 tablet by mouth 3 times weekly. Sucroferric Oxyhydroxide (VELPHORO PO) Yes No Sig: Take 500 mg by mouth 2 times daily. With each meal doxycycline hyclate 100 MG capsule Yes No Sig: Take 1 capsule by mouth 2 times daily. fluconazole 200 MG tablet No No Sig: Take 1 tablet by mouth See admin instructions. Starting 10/21, take 2 tablets once per day through 10/30. Starting 10/31, take 1 tablet once per day Patient taking differently: Take 1 tablet by mouth daily. levothyroxine 75 MCG tablet No No Sig: Take 1 tablet by mouth every morning before breakfast. pantoprazole [address] tablet DR No No Sig: Take 1 tablet by mouth daily. rifAXIMin 550 MG tablet No No Sig: Take 1 tablet by mouth 2 times daily. warfarin 2 MG tablet Yes No Sig: Take 1 tablet by mouth every evening at 6 PM. Facility-Administered Medications: None ALLERGIES No Known Allergies Review of Systerms As per HPI PHYSICAL EXAM Vitals: 12/18/24 1331 BP: 122/58 Pulse: 92 Resp: 16 Temp: 97.4 F (36.3 C) SpO2: 94% O2 Device: room air (12/18/24 1331) Constitutional: vital signs noted. oriented to person, place, and time. Cardiovascular: normal rate and regular rhythm. Respiratory: no tachypnea, retractions or cyanosis. Gastrointestinal: no rebound tenderness noted. Musculoskeletal: no muscular tenderness noted. Skin: normal coloration and turgor, no rashes, no suspicious skin lesions noted. Neurological: screening mental status exam normal. DATA REVIEW Body mass index is 27.33 kg/m . I have reviewed the patient's medical history in detail and updated the computerized patient record. Reviewed all the relevant laboratory and imaging studies. Malcom Fuller MD Guidance Director-Clinical, Division of Hospital Medicine [facility] 12/18/2024 2:03 PM [facility]01-30-2025 History and physical note* Malcom Araiza MD - 12/18/2024 2:03 PM EST Images from the original note were not included. Hospital Medicine Admission History & Physical Patient: Christian Amador, 1950, [id number] Physician: Malcom Fuller MD, Attending Physician, Pager #[phone], [facility] service Date of face to face patient encounter: 12/18/2024. Assessment and Plan Christian Amador is a 74 y.o. 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 ESRD on home HD for the last 1 year. He usually do HD on , Sun, Sun and Sunday. Noted leaking around one of the HD port and was advised to go to the ED, from ED he was admitted [facility]. Consult Nephrology. Check labs. - Renal diet, close I&O monitoring - Home Velphoro -> sevelamer 800mg tid while inpatient (not on formulary) HD associated hypotension: takes Midodrine as needed on the HD days. History of MRSA bacteremia complicated by mechanical heart valve endocarditis s/p replacement of mechanical aortic valve - goal 2.5-3.5, on warfarin at home. Check INR Likely need reversal of INR and heparin bridge. continue Doxycycline 100 mg BID (on it life long) Also continue Fluconazole due to fungemia 200 mg daily. MADRID cirrhosis with history of hepatic encephalopathy. No longer able to afford Rifaximin, Currently on lactulose. Monitor mental status, adjust lactulose as needed. Also reported mild cognitive impairment. Check LFT History of CAD, heart failure, afib/flutter and SSS s/p AVN ablation and PPM placement - no acute issues at this time. - Off GDMT due to hypotension with HD DLBCL (s/p treatment now in remission), GERD- continue pantoprazole Hypothyroidism- continue Synthroid DVT prophylaxis with warfarin/heparin Disposition: Home when improved Code status is Full Code Discussed with and updated regarding the plan of care. Chief Complaint Dialysis access problem History of Presenting Illness Christian Amador is a 74 y.o. male that has been admitted to [facility]. Christian Amador is a 74 y.o. 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 Patient is on home dialysis and use HD 4 times a week on , , Sun and Sun. He noticed some leaking of blood around one of the HD ports 2 days ago and only was dialyzed for 1 hour, he contacted hisNephrologist and they recommended him to go to the ED, he was seen by a surgeon who recommended to tape the port, but the leaking recurred and he went back to the ED [facility]. He denied any chest pain, shortness of breath or leg swelling. Takes midodrine during HD days when BP runs low. Medical History Past Medical History: Diagnosis Date Anemia Arrhythmia Arthritis Atrial flutter Atrial tachycardia BPH (benign prostatic hyperplasia) CAD (coronary artery disease) Cardiomyopathy Congestive heart failure, unspecified Essential hypertension, benign GERD (gastroesophageal reflux disease) Gout Hematochezia Hematoma 03/2012, 04/2012 HTN (hypertension), benign Hyperlipidemia Hypothyroidism Kidney stones Leukocytosis Liver disease Lymphoma h/o chemo Lymphoma MIA (obstructive sleep apnea) Pacemaker Rheumatic heart disease S/P AVR (aortic valve replacement) mechanical S/P radiofrequency ablation operation for arrhythmia Seizure 06/08 Septic shock TIA (transient ischemic attack) Vascular disease Past Surgical History: Procedure Laterality Date UPGRADE GENERATOR PACEMAKER SINGLE TO DUAL CHAMBER SYSTEM N/A 04/02/2024 Laterality: N/A; Surgeon: Ronnie Ferrari MD; Location: [facility] EP EGD DIAGNOSTIC 06/2022 INSERTION CVC TUNNELED N/A 10/10/2021 Laterality: N/A; Surgeon: Remy Ferrer MD; Location: [facility] INTERVENTIONAL RADIOLOGY (VIR) INSERTION CVC TUNNELED N/A 10/03/2021 Laterality: N/A; Surgeon: Kaylin Duran II, MD; Location: [facility] INTERVENTIONAL RADIOLOGY (VIR) PLACEMENT PROBE FOR [...] CVC TUNNELED Right 07/07/2016 Laterality: Right; Surgeon: Kaylin Grider MD; Location: [facility] INTERVENTIONAL RADIOLOGY (VIR) CARDIAC VEIN ELECTRODE PLACEMENT FOR LV PACING N/A 05/26/2016 Laterality: N/A; Surgeon: Yi Cody MD; Location: [facility] EP PACEMAKER PLACEMENT N/A 05/26/2016 Laterality: N/A; Surgeon: Yi Cody MD; Location: [facility] EP INSERTION CVC TUNNELED Right 05/19/2016 Laterality: Right; Surgeon: Kaylin Grider MD; Location: [facility] INTERVENTIONAL RADIOLOGY (VIR) INSERTION CVC TUNNELED Left 05/18/2016 Laterality: Left; Surgeon: Kaylin Grider MD; Location: [facility] INTERVENTIONAL RADIOLOGY (VIR) PACEMAKER ELECTRODE REMOVAL N/A 05/08/2016 Laterality: N/A; Surgeon: Luigi Mart MD; Location: [facility] EP COLONOSCOPY DIAGNOSTIC N/A 03/20/2016 Laterality: N/A; Surgeon: Jeremiah García MD; Location: [facility] ENDOSCOPY EP IMPLANT BIVENTRICULAR PACEMAKER TOTAL 08/07/2013 3 leads CARDIAC VEIN ELECTRODE PLACEMENT FOR LV PACING N/A 08/07/2013 Laterality: N/A; Surgeon: Favio Kline MD; Location: [facility] EP PACEMAKER ELECTRODE REMOVAL 08/07/2013 Surgeon: Favio Kline MD; Location: [facility] EP AV NODE ABLATION N/A 02/26/2013 Laterality: N/A; Surgeon: Favio Kline MD; Location: [facility] CARDIAC PACEMAKER PLACEMENT 10/20/2010 Implant: Medtronic [id number] Versa CARDIAC PACEMAKER PLACEMENT 08/31/2003 Implant: Medtronic [id number] [place] [address] APPENDECTOMY AR ANES HRT PERICRD SAC&GRT 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 Social History Social History Tobacco Use Smoking status: Never Smokeless tobacco: Never Substance Use Topics Alcohol use: Never Social History Substance and Sexual Activity Drug Use No Family History family history includes Breast Cancer in his sister; Coronary Artery Disease in his brother and father; Diabetes in his mother, paternal aunt, paternal uncle, and sister; Heart Defect in his paternaluncle; Heart Disease - Other in his brother, father, paternal aunt, and paternal uncle; Heart Surgery in his brother and father; Myocardial Infarction in his paternal uncle and paternal uncle; SuddenCardiac in his paternal uncle. MEDICATIONS Prior to Admission Medications Prescriptions Last Dose Informant Patient Reported? Taking? ALPRAZolam 1 MG tablet Yes No Sig: Take 1 tablet by mouth at bedtime. Acetaminophen (TYLENOL PO) Yes No Sig: Take by mouth. B Ywfkpzd-R-Fbhvk Acid (NEPHRO-BALTAZAR PO) Yes No Sig: Take 1 tablet by mouth at bedtime. Cyclobenzaprine 10 MG tablet Yes No Sig: Take 1 tablet by mouth 2 times daily. Docusate Sodium (COLACE PO) Self Yes No Sig: Take by mouth 2 times daily. Lactulose 10 GM/15ML Solution oral solution Yes No Sig: Take 15 mL by mouth 2 times daily. Midodrine HCl 10 MG tablet Yes No Sig: Take 1 tablet by mouth. 1 Tablet Sunday, Sunday, Sunday 2 Tablets Sun And Sun Sensipar 30 MG tablet Yes No Sig: Take 1 tablet by mouth 3 times weekly. Sucroferric Oxyhydroxide (VELPHORO PO) Yes No Sig: Take 500 mg by mouth 2 times daily. With each meal doxycycline hyclate 100 MG capsule Yes No Sig: Take 1 capsule by mouth 2 times daily. fluconazole 200 MG tablet No No Sig: Take 1 tablet by mouth See admin instructions. Starting 10/21, take 2 tablets once per day through 10/30. Starting 10/31, take 1 tablet once per day Patient taking differently: Take 1 tablet by mouth daily. levothyroxine 75 MCG tablet No No Sig: Take 1 tablet by mouth every morning before breakfast. pantoprazole [address] tablet DR No No Sig: Take 1 tablet by mouth daily. rifAXIMin 550 MG tablet No No Sig: Take 1 tablet by mouth 2 times daily. warfarin 2 MG tablet Yes No Sig: Take 1 tablet by mouth every evening at 6 PM. Facility-Administered Medications: None ALLERGIES No Known Allergies Review of Systerms As per HPI PHYSICAL EXAM Vitals: 12/18/24 1331 BP: 122/58 Pulse: 92 Resp: 16 Temp: 97.4 F (36.3 C) SpO2: 94% O2 Device: room air (12/18/24 1331) Constitutional: vital signs noted. oriented to person, place, and time. Cardiovascular: normal rate and regular rhythm. Respiratory: no tachypnea, retractions or cyanosis. Gastrointestinal: no rebound tenderness noted. Musculoskeletal: no muscular tenderness noted. Skin: normal coloration and turgor, no rashes, no suspicious skin lesions noted. Neurological: screening mental status exam normal. DATA REVIEW Body mass index is 27.33 kg/m . I have reviewed the patient's medical history in detail and updated the computerized patient record. Reviewed all the relevant laboratory and imaging studies. Malcom Fuller MD Guidance Director-Clinical, Division of Hospital Medicine [facility] 12/18/2024 2:03 PM documented [facility] Nurse Note* Nursing Notes - Farrah Schafer RN - 12/18/2024 1:32 PM EST Received Christian Amador to [place] [id number] from outside ED Transferred to bed without incident. Vital signs stable. Pain level is good. Pt oriented to room, call light, and bed alarms. Bed in low position, siderails elevated x2 to allow for pt mobility and bed alarm set. MCB tablet offered, pt acceptedAssessment complete. [facility] Evaluation note* Diagnosis Onset Date Resolution Status Admit Date Essential tremor chronic November 25, 2024 1:45pm Hyperammonemia chronic November 1:45pm Mild cognitive impairment chronic November 25, 2024 1:45pm Polyneuropathy chronic November 1:45pm Syncope resolved November 25, 1:45pm Biventricular cardiac pacemaker in situ May, acute January 28 10:02am Cardiomyopathy chronic January 10:02am History of cardiac radiofrequency ablation (RFA) [facility] 2024 10:02am Biventricular cardiac pacemaker in situ May, acute January 28 10:03am History of mitral valve repair August, acute January 28, 2025 10:03am Benign essential hypertension chroni c January 28, 2025 10:03am CAD (coronary artery disease) chroni c January 28, 2025 10:03am Cardiomyopathy chronic January 10:03am History of aortic valve replacement 2002January 28, 2025 10:03am History of cardiac radiofrequency ablation (RFA) chronic [facility] 2024 10:03am HLD (hyperlipidemia) [facility] 2024 10:03am Other specified cardiac dysrhythmias chronic January 28, 2025 10:03am [facility] Work Phone: [phone]) 467-842412-04-2024 History of Present illness Narrative* Kelby Chance, BUSINESS SERVICES SPECIALIST SALES-CUSTOMER ASSISTANT - 10/22/2024 11:00 AM EST Images from the original note were not included. CLINICAL CARE TEAM: -Referring Provider for today's consult: Self, Self -Primary Care Provider: Castro Ferrara HISTORY OF PRESENT ILLNESS: Christian Amador is a 74 y.o. male who [facility] [...] warfarin use and thrombocytopenia, pelvic fractures. He wasnoticed to have increasing hyperbilirubinemia. Per , he was found to have increased LFTs in thepast, referred to Gastroenterology with negative workup, although unclear what was done. No historyof significant alcohol use, no IV drug use or history of hepatitis. No family history of liver disease. Patient also with no other reported liver disease. CT A/P 09/02/21 with left retroperitoneal hemorrhage, no evidence of hemoperitoneum, bilateral pleural effusions, pelvic fractures, cirrhosis morphology of liver. Last echo with EF 54%. He had another prolonged admission due to a loculated pleural effusion thought to be related to PNAwhich was treated with a chest tube and antibiotics. During this admission, he underwent abdominal imaging which revealed a possible bladder mass and a small subcm lesion in the liver. NICOLAS was with Dr. Fry 04/16/2024. Christian Amador is doing well. Denies any recent ER visits or hospitalizations. Appetite is good,he has been working on portion control. He is moving his bowels without issues. He is moving his bowels 2-3 times daily. Denies any swelling in BLE or abd distention. He is not tolerant to lactulose b ut is taking Rifaximin as ordered. His currently on iHD; schedule is M,, and Sunday. Continues to have issues with fatigue. He continues to have issues with poor sleep, but improved since last visit. Otherwise, he denies any recent fevers, chills, night sweats, unexpected weight loss, chest pain, abdominal pain, diarrhea, constipation, melena, hematochezia. He does have chronic SOB. Presents to clinic today with his . PAST MEDICAL, SURGICAL, FAMILY, & SOCIAL HISTORY: Past Medical History: Diagnosis Date Anemia Arrhythmia Arthritis Atrial flutter Atrial tachycardia BPH (benign prostatic hyperplasia) CAD (coronary artery disease) Cardiomyopathy Congestive heart failure, unspecified Essential hypertension, benign GERD (gastroesophageal reflux disease) Gout Hematochezia Hematoma 03/2012, 04/2012 HTN (hypertension), benign Hyperlipidemia Hypothyroidism Kidney stones Leukocytosis Liver disease Lymphoma h/o chemo Lymphoma MIA (obstructive sleep apnea) Pacemaker Rheumatic heart disease S/P AVR (aortic valve replacement) mechanical S/P radiofrequency ablation operation for arrhythmia Seizure 06/08 Septic shock TIA (transient ischemic attack) Vascular disease Past Surgical History: Procedure Laterality Date UPGRADE GENERATOR PACEMAKER SINGLE TO DUAL CHAMBER SYSTEM N/A 04/02/2024 Laterality: N/A; Surgeon: Ronnie Ferrari MD; Location: [facility] EP EGD DIAGNOSTIC 06/2022 INSERTION CVC TUNNELED N/A 10/10/2021 Laterality: N/A; Surgeon: Remy Ferrer MD; Location: [facility] INTERVENTIONAL RADIOLOGY (VIR) INSERTION CVC TUNNELED N/A 10/03/2021 Laterality: N/A; Surgeon: Kaylin Duran II, MD; Location: [facility] INTERVENTIONAL RADIOLOGY (VIR) PLACEMENT PROBE FOR TRANSESOPHAGEAL ECHOCARDIOGRAPHY N/A 09/23/2021 Laterality: N/A; Surgeon: Sadia Nieto MD; Location: [facility] MAIN OR ESS NASAL DIAGNOSTIC Bilateral 09/20/2021 Laterality: Bilateral; Surgeon: You Wise MD; Location: [facility] MAIN OR ESS SPHENOID SINUSOTOMY WITH REMOVAL TISSUE Right 09/20/2021 Laterality: Right; Surgeon: You Wise MD; Location: [facility] MAIN OR ESS TOTAL ETHMOIDECTOMY Right 09/20/2021 Laterality: Right; Surgeon: You Wise MD; Location: [facility] MAIN OR REMOVAL CVC TUNNELED Right 07/07/2016 Laterality: Right; Surgeon: Kaylin Grider MD; Location: [facility] INTERVENTIONAL RADIOLOGY (VIR) CARDIAC VEIN ELECTRODE PLACEMENT FOR LV PACING N/A 05/26/2016 Laterality: N/A; Surgeon: Yi Cody MD; Location: [facility] EP PACEMAKER PLACEMENT N/A 05/26/2016 Laterality: N/A; Surgeon: Yi Cody MD; Location: [facility] EP INSERTION CVC TUNNELED Right 05/19/2016 Laterality: Right; Surgeon: Kaylin Grider MD; [facility] INTERVENTIONAL RADIOLOGY (VIR) INSERTION CVC TUNNELED Left 05/18/2016 Laterality: Left; Surgeon: Kaylin Grider MD; [facility] INTER[facility] (VIR) PACEMAKER ELECTRODE REMOVAL [...] Versa CARDIAC PACEMAKER PLACEMENT 08/31/2003 Implant: Medtronic [id number] [place] [address] APPENDECTOMY AR ANES HRT PERICRD SAC&GRT 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 Family History Problem Relation Age of Onset Diabetes Mother Heart Surgery Father CABG x5 Heart Disease - Other Father Coronary Artery Disease Father Breast Cancer Sister Diabetes Sister Heart Surgery Brother CABG x3 Heart Disease - Other Brother Coronary Artery Disease Brother Heart Disease - Other Paternal Aunt Diabetes Paternal Aunt Heart Disease - Other Paternal Uncle Diabetes Paternal Uncle Myocardial Infarction Paternal Uncle Heart Defect Paternal Uncle all Paternal uncles with heart problems Sudden Cardiac Paternal Uncle Myocardial Infarction Paternal Uncle Social History Socioeconomic History Marital status: Tobacco Use Smoking status: Never Smokeless tobacco: Never Vaping Use Vaping status: Never Used Substance and Sexual Activity Alcohol use: Never Drug use: No Sexual activity: Not Currently Partners: Female control/protection: Female Sterilization, Menopause, Tubal Ligation Other Topics Concern Occupational Exposure No Hobby Hazards No Social History Narrative Merged History Encounter MEDICATIONS: Current Outpatient Medications Medication Sig Acetaminophen (TYLENOL PO) Take by mouth. ALPRAZolam 1 MG tablet Take 1 tablet by mouth at bedtime. B Owobkvv-O-Ggbon Acid (NEPHRO-BALTAZAR PO) Take 1 tablet by mouth at bedtime. Cyclobenzaprine 10 MG tablet Take 1 tablet by mouth 2 times daily. Docusate Sodium (COLACE PO) Take by mouth 2 times daily. doxycycline hyclate 100 MG capsule Take 1 capsule by mouth 2 times daily. fluconazole 200 MG tablet Take 1 tablet by mouth See admin instructions. Starting 10/21, take 2 tablets once per day through 10/30. Starting 10/31, take 1 tablet once per day (Patient taking differently: Take 1 tablet by mouth daily.) levothyroxine 75 MCG tablet Take 1 tablet by mouth every morning before breakfast. Midodrine HCl 10 MG tablet Take 1 tablet by mouth. 1 Tablet Sunday, Sunday, Sunday 2 Tablets Sun And Sun pantoprazole [address] tablet DR Take 1 tablet by mouth daily. Sensipar 30 MG tablet Take 1 tablet by mouth 3 times weekly. Sucroferric Oxyhydroxide (VELPHORO PO) Take 500 mg by mouth 2 times daily. With each meal warfarin 2 MG tablet Take 1 tablet by mouth every evening at 6 PM. rifAXIMin 550 MG tablet Take 1 tablet by mouth 2 times daily. ALLERGIES: Patient has no known allergies. PHYSICAL EXAM: BP 122/48 (BP Location: Left arm, BP Position: Sitting) Ht 1.702 m (5' 7) Wt 78.9 kg (174 lb) BMI 27.25 kg/m Smoking Status Never Constitutional: Breathing easily, in no acute distress. Does appear cachectic. HEENT: PER, mild scleral icterus, normal appearing oropharynx, no appreciable cervical LAD Cardiovascular: Normal rate and regular rhythm. Right chest permacath. Pulmonary/Chest: Breath sounds normal. Abdominal: Soft. NT/ND. Hepatomegaly. Extrem: No appreciable LE edema. No gross focal motor deficits in [...] record. Lab Results Component Value Date/Time PT 19.9 (H) 04/02/2024 07:57 AM PT 27.7 (H) 06/01/2016 04:13 AM INR 1.7 (H) 04/02/2024 07:57 AM INR 2.6 (H) 06/01/2016 04:13 AM PLATELET 247 04/02/2024 07:57 AM PLATELET 196 08/07/2016 09:38 AM PLATELET 281 06/05/2016 12:00 AM WBC 11.08 (H) 04/02/2024 07:57 AM WBC 7.3 08/07/2016 09:38 AM WBC 9.2 06/05/2016 12:00 AM HGB 12.7 (L) 04/02/2024 07:57 AM HGB 9.8 (L) 08/07/2016 09:38 AM HGB 9.3 06/05/2016 12:00 AM POTASSIUM 4.0 04/02/2024 07:57 AM POTASSIUM 5.34 (H) 09/15/2021 12:20 AM POTASSIUM 6.8 06/06/2016 12:00 AM POTASSIUM 4.59 08/25/2003 09:23 AM BUN 54 (H) 04/02/2024 07:57 AM BUN 59 (H) 08/07/2016 09:38 AM CREATSERUM 7.94 (H) 04/02/2024 07:57 AM CREATSERUM 2.06 (H) 08/07/2016 09:38 AM CREATSERUM 3.0 06/05/2016 12:00 AM CREATSERUM 0.77 11/25/2014 10:42 AM GFR 7 (L) 04/02/2024 07:57 AM GFR 34 (L) 10/20/2021 05:52 AM GFR 32 (L) 08/07/2016 09:38 AM Lab Results Component Value Date ALT 56 (H) 12/05/2023 AST 63 (H) 12/05/2023 GGT 516 (H) 02/06/2023 ALKPHOS 337 (H) 12/05/2023 BILITOTAL 1.0 12/05/2023 BILIDIRECT 0.3 (H) 12/05/2023 Serologic Workup: Hepatitis C AB: Negative Hepatitis B surface AB: Positive Hepatitis B surface AG: Negative Hepatitis B core total AB: Negative Hepatitis A Total IgG: Positive Ferritin: 224.3 Iron saturation: 20 DOUG: Negative AMA: Negative Anti Smooth Muscle AB: Negative Ig IgA: 158 IgM: 383 Ceruloplasmin: 37 A1AT level: 210 Imaging: RUQ US 07/02/2024 CT A/P with IV contrast (02/03/2023): 1. [...] visualized due to artifact. Mean gradient 11 mmHg.Mild-moderate paravalvular and valvular regurgitation. S/p mitral valve [...] bilateral pleural effusions, right greater than left. MELD 3.0: 24 at 12/05/2023 10:36 AM MELD-Na: 26 at 12/05/2023 10:36 AM Calculated from: Serum Creatinine: 8.10 mg/dL (Using max of 3 mg/dL) at 12/05/2023 10:36 AM Serum Sodium: 136 mmol/L at 12/05/2023 10:36 AM Total Bilirubin: 1.0 mg/dL at 12/05/2023 10:36 AM Serum Albumin: 4.4 g/dL (Using max of 3.5 g/dL) at 12/05/2023 10:36 AM INR(ratio): 1.8 at 12/05/2023 10:36 AM Age at listing (hypothetical): 73 years Sex: Male at 12/05/2023 10:36 AM ASSESSMENT AND PLAN: Christian Amador is a 74 y.o. 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 He was seen by our inpatient team 08/26-10/10/2021 for new concerns of cirrhosis.Patient initially transferred for acute hypoxic respiratory insufficiency secondary to COVID pneumonia, UTI, TIEN. Hospital course c/b left retroperitoneal bleed in setting of warfarin use and thrombocytopenia, pelvic fractures. He was noticed to have increasing hyperbilirubinemia. No recent episodes of hematemesis, melena, abdominal distention. Per , he was found to have increased LFTs in thepast, referred to Gastroenterology with negative workup, although unclear what was done. No historyof significant alcohol use, no IV drug use or history of hepatitis. No family history of liver disease. Patient also with no other reported liver disease. CTAP 09/02/21 with left retroperitoneal hemorrhage, no evidence of hemoperitoneum, bilateral pleural effusions, pelvic fractures, cirrhosis morphology of liver. Last echo with EF 54%. On iHD 4 times weekly. Plan MADRID Cirrhosis: MELD 24 from previous labs. Will recheck MELD labs today. Ascites: Not present on exam. I would recommend adherence to a strict 2 gram, low sodium diet. EV: Variceal screening has been deferred for now given his medical conditions, need for AC . HE: A&Ox3. Continue Xifaxan. HCC: I would recommend ongoing surveillance for HCC with abdominal imaging in conjunction with serum AFP every 6 months. US and AFP ordered. 2. Frailty/deconditioning/severe protein calorie malnutrition. Recommend Boost/Ensure/Glucerna shakes 1-2 per meal and most importantly 1 before bedtime. Protein: 1.2-1.5 g/kg/day, calories: 30-35 kcal/kg/day. I discussed my impression and plan with [...] strictly avoid raw shellfish given the risk ofVibrio Vulnificus in cirrhotics. FOLLOW-UP -For follow up, he will return to Dr. Fry's clinic in 6 months. Thank you for allowing me to participate in the care of Christian Alejandra Lacyana maría. Kelby Chance, AILIN-CUSTOMER ASSISTANT Hepatology Nurse Practitioner Division of Gastroenterology, Hepatology, and Nutrition documented in this encounter[facility] Instructions* Patient Instructions* PATRICIA Flower - 10/22/2024 11:00 AM EST Labs today Schedule your ultrasound for 12/2024 locally documented in [facility] encounter[facility] History of Present illness Narrative* Vaishnavi Fry, - 04/16/2024 10:30 AM EDT -Referring Provider for today's consult: Olena Salas MD -Primary Care Provider: Castro Ferrara History of Present Illness Christian Amador is a 74 y.o. male who presents to the [facility] today for consultation regarding his diagnosis of Follow-up (Patient's states he gets tired often.). I have reviewedhis medical, surgical, family and social history and have updated medication and allergy information in the computerized patient record. I have also personally reviewed pertinent outside hospital documentation, laboratory results and imaging as outlined below. Mr. 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 His medical history is also notable for rheumatic heart disease s/p AV replacement, atrial flutter on Warfarin, CAD, MIA, HLD, ESRD on iHD, and possible seizure disorder previously on Keppra. Mr. Mcguire reports a remote history of abnormal liver function tests though workup was largely unremarkable (previous testing not available to review). In fall 2020, he was transferred to [facility] for respiratory failure due to COVID, retroperitoneal bleeding, pelvic fractures and fumgemia. During this prolonged admission, he underwent abdominal imaging which was concerning for cirrhosis. Etiology wasthought to be related to MASH. His liver disease was complicated by HE. He was started on Lactulosewith some improvement, though Rifaximin later added after discharge given ongoing concerns for HE. He had another prolonged admission in 02/2023 due to a loculated pleural effusion thought to be related to PNA which was treated with a chest tube and antibiotics. During this admission, he underwent abdominal imaging which revealed a possible bladder mass and a small subcm lesion in the liver. He did complete follow up imaging for this lesion in 07/2023 without evidence of a liver lesion. He has no acute complaints today other then ongoing nausea and fatigue. He denies signs of hepatic decompensation including ascites, jaundice, scleral icterus, HE or GIB. Past Medical History He has a past medical history of Anemia, Arrhythmia, Arthritis, Atrial flutter, Atrial tachycardia,BPH (benign prostatic hyperplasia), CAD (coronary artery disease), Cardiomyopathy, Congestive heartfailure, unspecified, Essential hypertension, benign, GERD (gastroesophageal reflux disease), Gout,Hematochezia, Hematoma (03/2012, 04/2012), HTN (hypertension), benign, Hyperlipidemia, Hypothyroidism, Kidney stones, Leukocytosis, Liver disease, Lymphoma, Lymphoma, MIA (obstructive sleep apnea), Pacemaker, Rheumatic heart disease, S/P AVR (aortic valve replacement), S/P radiofrequency ablation operation for arrhythmia, Seizure (06/08), Septic shock, TIA (transient ischemic attack), and Vascular disease. He has no past medical history of Diabetes mellitus or Difficult intubation. Past Surgical History Past Surgical History: Procedure Laterality Date UPGRADE GENERATOR PACEMAKER SINGLE TO DUAL CHAMBER SYSTEM N/A 04/02/2024 Laterality: N/A; Surgeon: Ronnie Ferrari MD; Location: [facility] EP EGD DIAGNOSTIC 06/2022 INSERTION CVC TUNNELED N/A 10/10/2021 Laterality: N/A; Surgeon: Remy Ferrer MD; Location: [facility] INTERVENTIONAL RADIOLOGY (VIR) INSERTION CVC TUNNELED N/A 10/03/2021 Laterality: N/A; Surgeon: Kaylin Duran II, MD; Location: [facility] INTERVENTIONAL RADIOLOGY (VIR) PLACEMENT PROBE FOR TRANSESOPHAGEAL ECHOCARDIOGRAPHY N/A 09/23/2021 Laterality: N/A; Surgeon: Sadia Nieto MD; Location: [facility] MAIN OR ESS NASAL DIAGNOSTIC Bilateral 09/20/2021 Laterality: Bilateral; Surgeon: You Wise MD; Location: [facility] MAIN OR ESS SPHENOID SINUSOTOMY WITH REMOVAL TISSUE Right 09/20/2021 Laterality: Right; Surgeon: You Wise MD; Location[facility] MA[facility] OR ESS TOTAL ETHMOIDECTOMY Right 09/20/2021 Laterality: Right; Surgeon: You Wise MD; Location: [facility] MAIN OR REMOVAL CVC TUNNELED Right 07/07/2016 Laterality: Right; Surgeon: Kaylin Grider MD; Location: [facility] INTERVENTIONAL RADIOLOGY (VIR) CARDIAC VEIN ELECTRODE PLACEMENT FOR LV PACING N/A 05/26/2016 Laterality: N/A; Surgeon: Yi Cody MD; Location: [facility] EP PACEMAKER PLACEMENT N/A 05/26/2016 Laterality: N/A; Surgeon: Yi Cody MD; Location: [facility] EP INSERTION CVC TUNNELED Right 05/19/2016 Laterality: Right; Surgeon: Kaylin Grider MD; Location: [facility] INTERVENTIONAL RADIOLOGY (VIR) INSERTION CVC TUNNELED Left 05/18/2016 Laterality: Left; Surgeon: Kaylin Grider MD; Location: [facility] INTERVENTIONAL RADIOLOGY (VIR) PACEMAKER ELECTRODE REMOVAL N/A 05/08/2016 Laterality: N/A; Surgeon: Luigi Mart MD; Location: [facility] EP COLONOSCOPY DIAGNOSTIC N/A 03/20/2016 Laterality: N/A; [...] Versa CARDIAC PACEMAKER PLACEMENT 08/31/2003 Implant: Medtronic [id number] [place] [address] APPENDECTOMY AR ANES HRT PERICRD SAC&GRT 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 ALPRAZolam 1 MG tablet Take 1 tablet by mouth at bedtime. B Ayquqdn-E-Ijaoe Acid (NEPHRO-BALTAZAR PO) Take 1 tablet by mouth at bedtime. Cyclobenzaprine 10 MG tablet Take 1 tablet by mouth 2 times daily. Docusate Sodium (COLACE PO) Take by mouth 2 times daily. doxycycline hyclate 100 MG capsule Take 1 capsule by mouth 2 times daily. fluconazole 200 MG tablet Take 1 tablet by mouth See admin instructions. Starting 10/21, take 2 tablets once per day through 10/30. Starting 10/31, take 1 tablet once per day (Patient taking differently: Take 1 tablet by mouth daily.) levothyroxine 75 MCG tablet Take 1 tablet by mouth every morning before breakfast. Midodrine HCl 10 MG tablet Take 1 tablet by mouth. 1 Tablet Sunday, Sunday, Sunday 2 Tablets Sun And Sun pantoprazole [address] tablet DR Take 1 tablet by mouth daily. Sucroferric Oxyhydroxide (VELPHORO PO) Take 500 mg by mouth 2 times daily. With each meal Tamsulosin HCl 0.4 MG capsule Take 1 capsule by mouth daily with dinner. warfarin 2 MG tablet Take 1 tablet by mouth every evening at 6 PM. rifAXIMin 550 MG tablet Take 1 tablet by mouth 2 times daily. Allergies No Known Allergies Social History He is present today with his . Family History His family history includes Breast Cancer in his sister; Coronary Artery Disease in his brother andfather; Diabetes in his mother, paternal aunt, paternal uncle, and sister; Heart Defect in his paternal uncle; Heart Disease - Other in his brother, father, paternal aunt, and paternal uncle; Heart Surgery in his brother and father; Myocardial Infarction in his paternal uncle and paternal uncle; Sandra den Cardiac in his paternal uncle. Review of Systems GENERAL: Negative for any nausea, vomiting, fevers, chills, or weight loss. +fatigue NEUROLOGIC: Negative for any blurry vision, blind spots, double vision, facial asymmetry, dysphagia, dysarthria, hemiparesis, hemisensory deficits, vertigo, ataxia. HEENT: Negative for any head trauma, neck trauma, neck stiffness, photophobia, phonophobia, sinusitis, rhinitis. CARDIAC: Negative for any chest pain, dyspnea on exertion, paroxysmal nocturnal dyspnea, peripheraledema. PULMONARY: Negative for any shortness of breath, wheezing, GASTROINTESTINAL: Negative for any abdominal pain, nausea, vomiting, bright red blood per rectum, melena. GENITOURINARY: Negative for any dysuria, hematuria, incontinence. INTEGUMENTARY: Negative for any rashes, cuts, insect bites. RHEUMATOLOGIC: Negative for any photosensitive rashes, history of vasculitis or kidney problems. HEMATOLOGIC: Negative for any abnormal bruising, frequent infections or bleeding. Physical Exam Blood pressure (!) 78/38, pulse 70, resp. rate (P) 24, height (P) 1.702 m (5' 7), weight (P) 78.9 kg (174 lb), SpO2 100%. Wt Readings from Last 3 Encounters: 04/16/24 (P) 78.9 kg (174 lb) 04/02/24 76.5 kg (168 lb 10.4 oz) 03/24/24 77.1 kg (169 lb 15.6 oz) Constitutional: Chronically ill appearing male in [...] following: Lab Results Component Value Date SODIUM 136 04/02/2024 POTASSIUM 4.0 04/02/2024 CHLORIDE 91 (L) 04/02/2024 CO2 25 04/02/2024 BUN 54 (H) 04/02/2024 CREATSERUM 7.94 (H) 04/02/2024 Lab Results Component Value Date WBC 11.08 (H) 04/02/2024 HGB 12.7 (L) 04/02/2024 HCT 38.7 (L) 04/02/2024 PLATELET 247 04/02/2024 MCV 106.3 (H) 04/02/2024 Lab Results Component Value Date ALT 56 (H) 12/05/2023 AST 63 (H) 12/05/2023 GGT 516 (H) 02/06/2023 ALKPHOS 337 (H) 12/05/2023 BILITOTAL 1.0 12/05/2023 BILIDIRECT 0.3 (H) 12/05/2023 MELD 3.0: 24 at 12/05/2023 10:36 AM MELD-Na: 26 at 12/05/2023 10:36 AM Calculated from: Serum Creatinine: 8.10 mg/dL (Using max of 3 mg/dL) at 12/05/2023 10:36 AM Serum Sodium: 136 mmol/L at 12/05/2023 10:36 AM Total Bilirubin: 1.0 mg/dL at 12/05/2023 10:36 AM Serum Albumin: 4.4 g/dL (Using max of 3.5 g/dL) at 12/05/2023 10:36 AM INR(ratio): 1.8 at 12/05/2023 10:36 AM Age at listing (hypothetical): 73 years Sex: Male at 12/05/2023 10:36 AM Serologic Workup: Hepatitis C AB: Negative Hepatitis B surface AB: Positive Hepatitis B surface AG: Negative Hepatitis B core total AB: Negative Hepatitis A Total IgG: Positive Ferritin: 224.3 Iron saturation: 20 DOUG: Negative AMA: Negative Anti Smooth Muscle AB: Negative Ig IgA: 158 IgM: 383 Ceruloplasmin: 37 A1AT level: 210 Imaging: RUQ US (12/2023): Report not available but patient denies note of HCC. CT A/P with IV contrast (07/2024): Left lobe infiltrate could be due to pneumonia. Persistent small left pleural effusion which could be loculated. Otherwise no focal acute inflammatory process Small adrenal nodule Atrophic kidneys without evidence of hydronpehrosis Liver without mass Echocardiogram (02/12/2023): - Left ventricle is normal in size with mild concentric hypertrophy. Ejection fraction 50-55%. - Right ventricle is normal in size with mildly reduced function. Device wire is present. - Severely dilated left atrium. - Bubble study is negative for shunt. - Aortic valve is mechanical ([address] [place]). Vmax 3.2 m/s, MG 20 mmHg. Mild regurgitation, likely valvular and paravalvular. - Mitral valve is s/p ring annuloplasty (#28 Brady) with known ring dehiscence. Leaflets are moderately thickened. Mild-moderate regurgitation. Mean gradient 4 mmHg at 71 bpm. - Mild TR, mild AR. - RVSP estimated 42 mmHg. - Compared to prior study 09/23/21, overall findings are similar. CT A/P with IV contrast (02/03/2023): 1. [...] Ancillary findings otherwise as above. RUQ US (03/17/2022): 1. Heterogeneous hepatic parenchymal echogenicity suggestive of [...] visualized due to artifact. Mean gradient 11 mmHg.Mild-moderate paravalvular and valvular regurgitation. S/p mitral valve [...] right greater than left. Assessment and Plan Christian Amador is a 74 y.o. 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 His medical history is also notable for rheumatic heart disease s/p AV replacement, atrial flutter on Warfarin, CAD, MIA, HLD, ESRD on iHD, possible seizure disorder previously on Keppra. MELD [address] INR on Coumadin and renal dysfunction PLAN: - Labs (BMP, LFTs, INR) should be performed every 3 months with an updated MELD score. Reviewed recent labs. - Given his underlying cirrhosis, I recommend HCC screening every 6 months with an abdominal imaging study in conjunction with a serum AFP. Next RUQ US due and 06/2024 (assuming 12/2023 US confirmed not to have HCC--completed at [facility]) and ordered today to complete locally. Update AFP with next labs. - Variceal screening has been deferred for [...] for precipitating or exacerbating hepatic encephalopathy. - Vaccination status: Immunity against HBV and HAV. - He reports chronic hypotension, worsen on dialysis days. His BP is low in clinic today and I encouraged him to review this with his [employer] to see if dose needs adjustment. - For follow up, he will return to clinic in 6months with Kelby Chance and with me in 1 year. Thank you for allowing us to participate in the care of Christian Amador. Vaishnavi Fry DO Guidance Director of Clinical Medicine Division of Gastroenterology, Hepatology and Nutrition [facility] Pager: [phone] * Brenda Arana LPN - 04/16/2024 10:30 AM EDT Patient verified name and date of with this INTERN [employer]AND. Patient is accompanied by his today. [facility]U [facility] Instructions* Patient Instructions* Vaishnavi Fry DO - 04/16/2024 10:30 AM EDT Follow up in 6months with Kelby Chance Print liver ultrasound to complete around 06/2024 Print labs to complete with next blood draw documented in this encounterU [facility] Nurse Note* Nursing Notes - Enrico Bateman RN - 04/02/2024 1:13 PM EDT Discharge instructions and printed AVS reviewed with patient by GIO Weston all questions answered. Ptverbalizes understanding. IV dc'd with no difficulty and catheter tip intact. Telemetry dc'd. VS stable at time of discharge. Patient being discharged to home by car with spouse. No patient belongings left at bedside. Post procedure recovery without events. R chest/axillary site without bleeding orhematoma, palpable radial pulses. Ice pack applied to site. U [facility]05-15-2024 Miscellaneous Notes* Nursing Notes - Enrico Bateman RN - 04/02/2024 1:13 PM EDT Discharge instructions and printed AVS reviewed with patient by GIO Weston all questions answered. Ptverbalizes understanding. IV dc'd with no difficulty and catheter tip intact. Telemetry dc'd. VS stable at time of discharge. Patient being discharged to home by car with spouse. No patient belongings left at bedside. Post procedure recovery without events. R chest/axillary site without bleeding orhematoma, palpable radial pulses. Ice pack applied to site. * Nursing Notes - Enrico Bateman RN - 04/02/2024 8:06 AM EDT Pt arrives to room 2446 in IPR for ICD c/o. ECG completed. IV started in R arm. Labs drawn and sent. 0.9 NS IVF initiated @ 10mL/ hr per pump. Pt prep completed. Valuables given to spouse. Clothes secured in room. Questions about procedure answered. Family brought to bedside. Bed in low position, side rail up x2 and call light given to pt. Tele monitor shows Vpaced . [facility] Discharge instructions* Discharge Instr - Activity* PATRICIA Bunch - 04/02/2024 11:04 AM EDT YOUR ACTIVITY RESTRICTIONS FOR THE NEXT FOUR WEEKS Avoid lifting any objects heavier than 10 pounds Avoid raising your device side arm above your shoulder. We encourage you to use the arm on the ICD implanted side as long as the movement is below shoulder level and within the lifting restrictions. Avoid activities that require pushing or pulling heavy objects Avoid vigorous exercise which would include the following: Washing windows or goodwin Vacuuming Tennis and golf but you may practice putting Lifting weights Running, jogging, or aerobics Contact sports Snow shoveling Mowing the lawn Chopping wood It is ok to lift your arms up to wash your hair but you should not be raising your arm on a repetitive basis. You must wait six weeks post implant before resuming a full golf swing DRIVING RESTRICTIONS You are not allowed to drive for 48 hours after your surgery Patients who have had a syncopal episode (or passed out) have an additional restriction: They are not allowed to drive for three months after their last syncopal (passing out) episode. If you have questions regarding this restriction, please contact your physician s office, not the Device [facility] * Discharge Instr - Diet* PATRICIA Bunch - 04/02/2024 11:04 AM EDT Diet: Cardiac 4gm NA Low sodium, low fat, low cholesterol, caffeine controlled. Sodium restricted to 4 grams. * Discharge Instr - Notify* PATRICIA Bunch - 04/02/2024 11:04 AM EDT Images from the original note were not included. Call the Device Clinic if you have: Dizziness, lightheadedness, or you pass out A very slow heartbeat - 40 beats per minute or slower Unusual shortness of breath Other signs that concern you If you have any of these signs and need medical help right away, call 911. When you are nauseated, you may feel weak and sweaty and notice a lot of saliva in your mouth. Nausea often leads to vomiting. Most of the time you do not need to worry about nausea and vomiting, butthey can be signs of other illnesses. The doctor has checked you carefully, but problems can develop later. If you notice any problems ornew symptoms, get medical treatment right away. Follow-up care is a maldonado part of your treatment and safety. Be sure to make and go to all appointments, and call your doctor if you are having problems. It's also a good idea to know your test resultsand keep a list of the medicines you take. How can you care for yourself at home? To prevent dehydration, drink plenty of fluids, enough so that your urine is light yellow or clear like water. Choose water and other caffeine-free clear liquids until you feel better. If you have kidney, heart, or liver disease and have to limit fluids, talk with your doctor before you increase the amount of fluids you drink. Rest in bed until you feel better. When you are able to eat, try clear soups, mild foods, and liquids until all symptoms are gone for 12 to 48 hours. Other good choices include dry toast, crackers, cooked cereal, and gelatin dessert, such as Jell-O. When should you call for help? Call 911 anytime you think you may need emergency care. For example, call if: You passed out (lost consciousness) Call your doctor now or seek immediate medical care if: You have symptoms of dehydration, such as: Dry eyes and a dry mouth Passing only a little dark urine Feeling thirstier than usual You have new or worsening belly pain You have a new or higher fever You vomit blood or what looks like coffee grounds Watch closely for changes in your health, and be sure to contact your doctor if: You have on going nausea and vomiting Your vomiting gets worse Your vomiting last longer than 2 days You are not getting better as expected Where can you learn more? Go to https://www.Pieceablewise.net/osumychart. * Discharge Instr - Wound Care* PTARICIA Bunch - 04/02/2024 11:04 AM EDT Your incision care The pacemaker may buldge slightly under the skin. This is normal and common right after surgery. This will lesson over the nxt few weeks. You may have bruising around the incision, especially if you take blood thinner medicines, called 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, such as aspirin or warfarin. Itching is a normal part of the healing process. Try not to rub or scratch the incision site. Keep your incision clean and dry. Your dressing is waterproof and can be worn in the shower. Your dressing can be left in place for up to seven (7) days. Dressing may need to be changed sooner, depending on the amount of fluid it absorbs. Dressing flexes with skin during body movement. * Attachments The following attachments cannot be sent through Care Everywhere. * [facility] ([facility]) (Malagasy) documented in this encounterSelect [facility] History and physical note* PATRICIA Bunch - 04/02/2024 8:15 AM EDT Chief Complaint Device Change Out HPI Christian Amador is a 74 y.o. 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 He has undergone COOK SHORT ORDER-P implant in the past, reportedly by after AV node ablation, although details regarding deviceand outside records are unavailable to me at this time. Reportedly, the device has reached battery depletion and he presents today for change out. Patient Active Problem List Diagnosis SSS (sick sinus syndrome) MIA (obstructive sleep apnea) Leukocytosis HTN (hypertension), benign Atrial flutter Atrial tachycardia S/P radiofrequency ablation operation for arrhythmia High Grade B cell lymphoma Anemia Atrial fibrillation Chronic systolic heart failure H/O mechanical aortic valve replacement Cardiomyopathy, nonischemic Open abdominal wall wound Infection due to implanted cardiac device TIA (transient ischemic attack) Syncope Cardiac arrest Subtherapeutic international normalized ratio (INR) Acute encephalopathy Renal disease (High Serum Creatinine) Electrolyte disorder (K, Cl, or Na) Pneumonia due to COVID-19 virus Altered mental status Cirrhosis of liver without ascites Sphenoid sinusitis Acute candidal endocarditis Fungemia TIEN (acute kidney injury) Debility CAD (coronary artery disease) BPH (benign prostatic hyperplasia) Pleural effusion Past Medical History: Diagnosis Date Anemia Arthritis Atrial flutter Atrial tachycardia BPH (benign prostatic hyperplasia) CAD (coronary artery disease) Cardiomyopathy Congestive heart failure, unspecified Essential hypertension, benign Gout Hematochezia Hematoma 03/2012, 04/2012 HTN (hypertension), benign Hypothyroidism Kidney stones Leukocytosis Liver disease Lymphoma h/o chemo Lymphoma MIA (obstructive sleep apnea) Pacemaker Rheumatic heart disease S/P AVR (aortic valve replacement) mechanical S/P radiofrequency ablation operation for arrhythmia Septic shock TIA (transient ischemic attack) Past Surgical History: Procedure Laterality Date EGD DIAGNOSTIC 06/2022 INSERTION CVC TUNNELED N/A 10/10/2021 Laterality: N/A; Surgeon: Remy Ferrer MD; Location: [facility] INTERVENTIONAL RADIOLOGY (VIR) INSERTION CVC TUNNELED N/A 10/03/2021 Laterality: N/A; Surgeon: Kaylin Duran II, MD; Location: [facility] INTERVENTIONAL RADIOLOGY (VIR) PLACEMENT PROBE FOR TRANSESOPHAGEAL ECHOCARDIOGRAPHY N/A 09/23/2021 Laterality: N/A; Surgeon: Sadia Nieto MD; Location: [facility] MAIN OR ESS NASAL DIAGNOSTIC Bilateral 09/20/2021 Laterality: Bilateral; Surgeon: You Wise MD; Location: [facility] MAIN OR ESS SPHENOID SINUSOTOMY WITH REMOVAL TISSUE Right 09/20/2021 Laterality: Right; Surgeon: You Wise MD; Location: [facility] MAIN OR ESS TOTAL ETHMOIDECTOMY Right 09/20/2021 Laterality: Right; Surgeon: You Wise MD; Location: [facility] MAIN OR REMOVAL CVC TUNNELED Right 07/07/2016 Laterality: Right; Surgeon: Kaylin Grider MD; Location: [facility] INTERVENTIONAL RADIOLOGY (VIR) CARDIAC VEIN ELECTRODE PLACEMENT FOR LV PACING N/A 05/26/2016 Laterality: N/A; Surgeon: Yi Cody MD; Location: [facility] EP PACEMAKER PLACEMENT N/A 05/26/2016 Laterality: N/A; Surgeon: Yi Cody MD; Location: [facility] EP INSERTION CVC TUNNELED Right 05/19/2016 Laterality: Right; Surgeon: Kaylin Grider MD; Location: [facility] INTERVENTIONAL RADIOLOGY (VIR) INSERTION CVC TUNNELED Left 05/18/2016 Laterality: Left; Surgeon: Kaylin Grider MD; Location: [facility] INTERVENTIONAL RADIOLOGY (VIR) [...] Versa CARDIAC PACEMAKER PLACEMENT 08/31/2003 Implant: Medtronic [id number] [place] [address] APPENDECTOMY AR ANESTH,OPEN HEART SURGERY+PUMP Medications Prior to Admission Medication Sig Dispense Refill Last Dose ALPRAZolam 1 MG tablet Take 1 tablet by mouth at bedtime. 04/01/2024 B Sjombqe-A-Fwgfs Acid (NEPHRO-BALTAZAR PO) Take 1 tablet by mouth at bedtime. 04/01/2024 Cyclobenzaprine 10 MG tablet Take 1 tablet by mouth 2 times daily. 04/02/2024 doxycycline hyclate 100 MG capsule Take 1 capsule by mouth 2 times daily. 04/01/2024 levothyroxine 75 MCG tablet Take 1 tablet by mouth every morning before breakfast. 30 tablet 0 04/02/2024 Midodrine HCl 10 MG tablet Take 1 tablet by mouth. 1 Tablet Sunday, Sunday, Sunday 2 Tablets Sun And Sun04/02/2024 pantopraz[address] tablet DR Take 1 tablet by mouth daily. 30 tablet 0 04/01/2024 Sucroferric Oxyhydroxide (VELPHORO PO) Take 500 mg by mouth 2 times daily. With each meal 04/01/2024 Tamsulosin HCl 0.4 MG capsule Take 1 capsule by mouth daily with dinner. 30 capsule 0 04/01/2024 warfarin 2 MG tablet Take 1 tablet by mouth every evening at 6 PM. 04/01/2024 Acetaminophen (TYLENOL PO) Take by mouth. Docusate Sodium (COLACE PO) Take by mouth. fluconazole 200 MG tablet Take 1 tablet by mouth See admin instructions. Starting 10/21, take 2 tablets once per day through 10/30. Starting 10/31, take 1 tablet once per day (Patient taking differently: Take 1 tablet by mouth daily.) 40 tablet 0 No Known Allergies Social History Socioeconomic History Marital status: Tobacco Use Smoking status: Never Smokeless tobacco: Never Vaping Use Vaping status: Never Used Substance and Sexual Activity Alcohol use: No Drug use: No Sexual activity: Yes Partners: Male Social History Narrative Merged History Encounter Family History Problem Relation Age of Onset Heart Surgery Father CABG x5 Heart Disease - Other Father Diabetes Mother Heart Disease - Other Paternal Uncle Diabetes Paternal Uncle Heart Surgery Brother CABG x3 Heart Defect Paternal Uncle all Paternal uncles with heart problems Breast Cancer Sister Diabetes Sister Heart Disease - Other Brother Heart Disease - Other Paternal Aunt Diabetes Paternal Aunt Referring MD Dr. Flores PCP Castro CABRERA MD: Dr. Ferrari Anticoagulation: coumadin managed by: home monitoring Has the patient missed any doses of anticoagulation. no When was the last dose taken. 04/01/2024 [id number] Vasc score: 9 ([id number]) Prior Cardiac testing: Results for orders placed during the hospital encounter of 03/24/24 ECHOCARDIOGRAM LIMITED/FOLLOWUP 03/24/2024 (Final) Interpretation Summary Left Ventricle: Chamber size is mildly enlarged. Increased wall thickness. Mild concentric hypertrophy. Global hypokinesis. Abnormal septal motion consistent with right ventricular pacing. Ejection fraction is mildly reduced (45 - 50%). Unable to assess diastolic function. Right Ventricle: Chamber size is normal. Systolic function is normal. Device wire is present. Left Atrium: Chamber size is enlarged. Right Atrium: Chamber size is normal. A device wire is present. Aortic Valve: [address] Edward mechanical valve. Stable appearing. Mitral Valve: Moderate anterior and posterior leaflet thickening. Leaflet mobility is restricted. Aprosthetic 28 mm Brady annular ring is present. Tricuspid Valve: Mild regurgitation. Estimated right ventricular systolic pressure is 36 mmHg. Pulmonary artery/right heart systolic pressure is elevated. (Mild) Comment: Limited Study. Technically difficult study. Review of System Constitutional: Negative for fever, weight loss, weight gain and reports malaise/fatigue. Skin: Negative. HEENT: Negative. Cardiovascular: Negative for leg swelling. Negative for palpitations, chest pain, + dyspnea, no orthopnea, and PND. Negative for lightheadedness or syncope. Respiratory: Negative for cough. Is not experiencing shortness of breath currently. Gastrointestinal: Negative for abdominal pain, nausea, vomiting, diarrhea, melena, and constipation. Endocrine: Negative for polyuria, polydipsia, heat or cold intolerance. Genitourinary: Negative for frequency or burning with urination. Neurological: Negative for dizziness and headaches. Psychiatric: No documented psych history Telemetry V pace BP 113/55 (BP Location: Left arm, BP Position: Lying) Pulse 71 Temp 98.1 F (36.7 C) (Oral) Resp 16 Ht 1.702 m (5' 7) Wt 76.5 kg (168 lb 10.4 oz) SpO2 98% BMI 26.41 kg/m Smoking Status Never Body mass index is 26.41 kg/m . Physical Exam General appearance - alert, LOC x 3, well appearing, and in no distress Neck - supple, no significant adenopathy, carotids upstroke normal bilaterally without bruits. Chest - lungs clear to auscultation, breath sounds equal and symmetric, no rhonchi, rales or wheezes, no accessory muscle use Heart - regular rate and rhythm, S1 and S2 normal, no murmurs, + mechanical click, gallops or rubs,normal bilateral carotid upstroke without bruits, + JVD Abdomen - soft, nontender, nondistended, no masses or organomegaly, bowel sounds present x 4 quadrants. Extremities - peripheral pulses intact, no pedal edema, no clubbing or cyanosis Skin - normal coloration and turgor, no rashes, no suspicious skin lesions noted Lab Results Component Value Date SODIUM 136 12/05/2023 POTASSIUM 4.4 12/05/2023 CHLORIDE 91 (L) 12/05/2023 CO2 28 12/05/2023 BUN 57 (H) 12/05/2023 CREATSERUM 8.10 (H) 12/05/2023 GLUCOSE 98 02/21/2023 Lab Results Component Value Date WBC 11.08 (H) 04/02/2024 HGB 12.7 (L) 04/02/2024 HCT 38.7 (L) 04/02/2024 PLATELET 247 04/02/2024 MCV 106.3 (H) 04/02/2024 INR Date Value Ref Range Status 12/05/2023 1.8 (H) 0.9 - 1.1 Final 02/22/2023 2.5 (H) 0.9 - 1.1 Final 02/22/2023 2.4 (H) 0.9 - 1.1 Final Assessment and Plan Device Battery Depletion: Proceed with change out with routine post procedure orders. [facility] Work Phone: [phone]) 225-738005-15-2024 History and physical note* Miracle Parks, AILIN-CUSTOMER ASSISTANT - 04/02/2024 8:15 AM EDT Chief Complaint Device Change Out HPI Christian Amador is a 74 y.o. 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 He has undergone COOK SHORT ORDER-P implant in the past, reportedly by after AV node ablation, although details regarding deviceand outside records are unavailable to me at this time. Reportedly, the device has reached battery depletion and he presents today for change out. Patient Active Problem List Diagnosis SSS (sick sinus syndrome) MIA (obstructive sleep apnea) Leukocytosis HTN (hypertension), benign Atrial flutter Atrial tachycardia S/P radiofrequency ablation operation for arrhythmia High Grade B cell lymphoma Anemia Atrial fibrillation Chronic systolic heart failure H/O mechanical aortic valve replacement Cardiomyopathy, nonischemic Open abdominal wall wound Infection due to implanted cardiac device TIA (transient ischemic attack) Syncope Cardiac arrest Subtherapeutic international normalized ratio (INR) Acute encephalopathy Renal disease (High Serum Creatinine) Electrolyte disorder (K, Cl, or Na) Pneumonia due to COVID-19 virus Altered mental status Cirrhosis of liver without ascites Sphenoid sinusitis Acute candidal endocarditis Fungemia TIEN (acute kidney injury) Debility CAD (coronary artery disease) BPH (benign prostatic hyperplasia) Pleural effusion Past Medical History: Diagnosis Date Anemia Arthritis Atrial flutter Atrial tachycardia BPH (benign prostatic hyperplasia) CAD (coronary artery disease) Cardiomyopathy Congestive heart failure, unspecified Essential hypertension, benign Gout Hematochezia Hematoma 03/2012, 04/2012 HTN (hypertension), benign Hypothyroidism Kidney stones Leukocytosis Liver disease Lymphoma h/o chemo Lymphoma MIA (obstructive sleep apnea) Pacemaker Rheumatic heart disease S/P AVR (aortic valve replacement) mechanical S/P radiofrequency ablation operation for arrhythmia Septic shock TIA (transient ischemic attack) Past Surgical History: Procedure Laterality Date EGD DIAGNOSTIC 06/2022 INSERTION CVC TUNNELED N/A 10/10/2021 Laterality: N/A; Surgeon: Remy Ferrer MD; Location: [facility] INTERVENTIONAL RADIOLOGY (VIR) INSERTION CVC TUNNELED N/A 10/03/2021 Laterality: N/A; Surgeon: Kaylin Duran II, MD; Location: [facility] INTERVENTIONAL RADIOLOGY (VIR) PLACEMENT PROBE FOR TRANSESOPHAGEAL ECHOCARDIOGRAPHY N/A 09/23/2021 Laterality: N/A; Surgeon: Sadia Nieto MD; Location: [facility] MAIN OR ESS NASAL DIAGNOSTIC Bilateral 09/20/2021 Laterality: Bilateral; Surgeon: You Wise MD; Location: [facility] MAIN OR ESS SPHENOID SINUSOTOMY WITH REMOVAL TISSUE Right 09/20/2021 Laterality: Right; Surgeon: You Wise MD; Location: [facility] MAIN OR ESS TOTAL ETHMOIDECTOMY Right 09/20/2021 Laterality: Right; Surgeon: You Wise MD; Location: [facility] MAIN OR REMOVAL CVC TUNNELED Right 07/07/2016 Laterality: Right; Surgeon: Kaylin Grider MD; Location: [facility] INTERVENTIONAL RADIOLOGY (VIR) CARDIAC VEIN ELECTRODE PLACEMENT FOR LV PACING N/A 05/26/2016 Laterality: N/A; Surgeon: Yi Cody MD; Location: [facility] EP PACEMAKER PLACEMENT N/A 05/26/2016 Laterality: N/A; Surgeon: Yi Cody MD; Location: [facility] EP INSERTION CVC TUNNELED Right 05/19/2016 Laterality: Right; Surgeon: Kaylin Grider MD; Location: [facility] INTERVENTIONAL RADIOLOGY (VIR) INSERTION CVC TUNNELED Left 05/18/2016 Laterality: Left; Surgeon: Kaylin Grider MD; Location: [facility] INTERVENTIONAL RADIOLOGY (VIR) [...] Versa CARDIAC PACEMAKER PLACEMENT 08/31/2003 Implant: Medtronic [id number] [place] [address] APPENDECTOMY AR ANESTH,OPEN HEART SURGERY+PUMP Medications Prior to Admission Medication Sig Dispense Refill Last Dose ALPRAZolam 1 MG tablet Take 1 tablet by mouth at bedtime. 04/01/2024 B Ehrwcih-W-Cloxw Acid (NEPHRO-BALTAZAR PO) Take 1 tablet by mouth at bedtime. 04/01/2024 Cyclobenzaprine 10 MG tablet Take 1 tablet by mouth 2 times daily. 04/02/2024 doxycycline hyclate 100 MG capsule Take 1 capsule by mouth 2 times daily. 04/01/2024 levothyroxine 75 MCG tablet Take 1 tablet by mouth every morning before breakfast. 30 tablet 0 04/02/2024 Midodrine HCl 10 MG tablet Take 1 tablet by mouth. 1 Tablet Sunday, Sunday, Sunday 2 Tablets Sun And Sun04/02/[address] pantop[address] tablet DR Take 1 tablet by mouth daily. 30 tablet 0 04/01/2024 Sucroferric Oxyhydroxide (VELPHORO PO) Take 500 mg by mouth 2 times daily. With each meal 04/01/2024 Tamsulosin HCl 0.4 MG capsule Take 1 capsule by mouth daily with dinner. 30 capsule 0 04/01/2024 warfarin 2 MG tablet Take 1 tablet by mouth every evening at 6 PM. 04/01/2024 Acetaminophen (TYLENOL PO) Take by mouth. Docusate Sodium (COLACE PO) Take by mouth. fluconazole 200 MG tablet Take 1 tablet by mouth See admin instructions. Starting 10/21, take 2 tablets once per day through 10/30. Starting 10/31, take 1 tablet once per day (Patient taking differently: Take 1 tablet by mouth daily.) 40 tablet 0 No Known Allergies Social History Socioeconomic History Marital status: Tobacco Use Smoking status: Never Smokeless tobacco: Never Vaping Use Vaping status: Never Used Substance and Sexual Activity Alcohol use: No Drug use: No Sexual activity: Yes Partners: Male Social History Narrative Merged History Encounter Family History Problem Relation Age of Onset Heart Surgery Father CABG x5 Heart Disease - Other Father Diabetes Mother Heart Disease - Other Paternal Uncle Diabetes Paternal Uncle Heart Surgery Brother CABG x3 Heart Defect Paternal Uncle all Paternal uncles with heart problems Breast Cancer Sister Diabetes Sister Heart Disease - Other Brother Heart Disease - Other Paternal Aunt Diabetes Paternal Aunt Referring MD Dr. Flores PCP Castro CABRERA MD: Dr. Ferrari Anticoagulation: coumadin managed by: home monitoring Has the patient missed any doses of anticoagulation. no When was the last dose taken. 04/01/2024 [id number]- Vasc score: 9 ([id number]) Prior Cardiac testing: Results for orders placed during the hospital encounter of 03/24/24 ECHOCARDIOGRAM LIMITED/FOLLOWUP 03/24/2024 (Final) Interpretation Summary Left Ventricle: Chamber size is mildly enlarged. Increased wall thickness. Mild concentric hypertrophy. Global hypokinesis. Abnormal septal motion consistent with right ventricular pacing. Ejection fraction is mildly reduced (45 - 50%). Unable to assess diastolic function. Right Ventricle: Chamber size is normal. Systolic function is normal. Device wire is present. Left Atrium: Chamber size is enlarged. Right Atrium: Chamber size is normal. A device wire is present. Aortic Valve: [address] Edward mechanical valve. Stable appearing. Mitral Valve: Moderate anterior and posterior leaflet thickening. Leaflet mobility is restricted. Aprosthetic 28 mm Brady annular ring is present. Tricuspid Valve: Mild regurgitation. Estimated right ventricular systolic pressure is 36 mmHg. Pulmonary artery/right heart systolic pressure is elevated. (Mild) Comment: Limited Study. Technically difficult study. Review of System Constitutional: Negative for fever, weight loss, weight gain and reports malaise/fatigue. Skin: Negative. HEENT: Negative. Cardiovascular: Negative for leg swelling. Negative for palpitations, chest pain, + dyspnea, no orthopnea, and PND. Negative for lightheadedness or syncope. Respiratory: Negative for cough. Is not experiencing shortness of breath currently. Gastrointestinal: Negative for abdominal pain, nausea, vomiting, diarrhea, melena, and constipation. Endocrine: Negative for polyuria, polydipsia, heat or cold intolerance. Genitourinary: Negative for frequency or burning with urination. Neurological: Negative for dizziness and headaches. Psychiatric: No documented psych history Telemetry V pace BP 113/55 (BP Location: Left arm, BP Position: Lying) Pulse 71 Temp 98.1 F (36.7 C) (Oral) Resp 16 Ht 1.702 m (5' 7) Wt 76.5 kg (168 lb 10.4 oz) SpO2 98% BMI 26.41 kg/m Smoking Status Never Body mass index is 26.41 kg/m . Physical Exam General appearance - alert, LOC x 3, well appearing, and in no distress Neck - supple, no significant adenopathy, carotids upstroke normal bilaterally without bruits. Chest - lungs clear to auscultation, breath sounds equal and symmetric, no rhonchi, rales or wheezes, no accessory muscle use Heart - regular rate and rhythm, S1 and S2 normal, no murmurs, + mechanical click, gallops or rubs,normal bilateral carotid upstroke without bruits, + JVD Abdomen - soft, nontender, nondistended, no masses or organomegaly, bowel sounds present x 4 quadrants. Extremities - peripheral pulses intact, no pedal edema, no clubbing or cyanosis Skin - normal coloration and turgor, no rashes, no suspicious skin lesions noted Lab Results Component Value Date SODIUM 136 12/05/2023 POTASSIUM 4.4 12/05/2023 CHLORIDE 91 (L) 12/05/2023 CO2 28 12/05/2023 BUN 57 (H) 12/05/2023 CREATSERUM 8.10 (H) 12/05/2023 GLUCOSE 98 02/21/2023 Lab Results Component Value Date WBC 11.08 (H) 04/02/2024 HGB 12.7 (L) 04/02/2024 HCT 38.7 (L) 04/02/2024 PLATELET 247 04/02/2024 MCV 106.3 (H) 04/02/2024 INR Date Value Ref Range Status 12/05/2023 1.8 (H) 0.9 - 1.1 Final 02/22/2023 2.5 (H) 0.9 - 1.1 Final 02/22/2023 2.4 (H) 0.9 - 1.1 Final Assessment and Plan Device Battery Depletion: Proceed with change out with routine post procedure orders. [facility] Nurse Note* Nursing Notes - Enrico Bateman RN - 04/02/2024 8:06 AM EDT Pt arrives to room 2446 in IPR for ICD c/o. ECG completed. IV started in R arm. Labs drawn and sent. 0.9 NS IVF initiated @ 10mL/ hr per pump. Pt prep completed. Valuables given to spouse. Clothes secured in room. Questions about procedure answered. Family brought to bedside. Bed in low position, side rail up x2 and call light given to pt. Tele monitor shows Vpaced . [facility]05-06-2024 History of Present illness Narrative* Alina Kulkarni RN - 03/24/2024 3:30 PM EDT Definity Risk Screening: Explained Definity use to patient including potential side effects with emphasis on patient informing the RN/technologist if they develop any symptoms after administration. status: na Medication list reviewed. Known sensitivity to Perflutren or Polyethylene Glycol (PEG-containing products such as bowel preparations or laxatives): no Definity dose: 1.5 ml diluted with 8.5 ml saline (start with 1-2 ml, additional doses as needed) Total dose given: 2 ml After administration of Definity contrast, the patient experienced no side effects and was without complaints. IV removed and intact. Adequate hemostasis achieved. [facility] History of Present illness Narrative* Kelby Jayesh Chance, BUSINESS SERVICES SPECIALIST SALES-CUSTOMER ASSISTANT - 12/05/2023 10:00 AM EST CLINICAL CARE TEAM: -Referring Provider for today's consult: Castro Ferrara, -Primary Care Provider: Castro Ferrara HISTORY OF PRESENT ILLNESS: Christian Amador is a 73 y.o. male who [facility] today for follow-up. I have [...] warfarin use and thrombocytopenia, pelvic fractures. He wasnoticed to have increasing hyperbilirubinemia. Per , he was found to have increased LFTs in thepast, referred to Gastroenterology with negative workup, although unclear what was done. No historyof significant alcohol use, no IV drug use or history of hepatitis. No family history of liver disease. Patient also with no other reported liver disease. CT A/P 09/02/21 with left retroperitoneal hemorrhage, no evidence of hemoperitoneum, bilateral pleural effusions, pelvic fractures, cirrhosis morphology of liver. Last echo with EF 54%. He had another prolonged admission due to a loculated pleural effusion thought to be related to PNAwhich was treated with a chest tube and antibiotics. During this admission, he underwent abdominal imaging which revealed a possible bladder mass and a small subcm lesion in the liver. NICOLAS was with Dr. Fry 07/13/2023. Christian Amador is doing well. Denies any recent ER visits or hospitalizations. Appetite is good,moving his bowels without issues. He is moving his bowels 2-3 times daily. Denies any swelling in BLE or abd distention. He is not tolerant to lactulose but is taking Rifaximin as ordered. His current ly on iHD; schedule is ,, and Sunday. Continues to have issues with fatigue. He does follow locally with GI, and completed EGD 07/17/2022. He continues to have issues with poor sleep. Otherwise, he denies any recent fevers, chills, night sweats, unexpected weight loss, chest pain, abdominal pain , diarrhea, constipation, melena, hematochezia. He does have chronic SOB. Presents to clinic today with his . PAST MEDICAL, SURGICAL, FAMILY, & SOCIAL HISTORY: [...] CVC TUNNELED N/A 10/03/2021 Laterality: N/A; Surgeon: Kaylin Duran II, MD; Location: [facility] INTERVENTIONAL RADIOLOGY (VIR) PLACEMENT PROBE FOR TRANSESOPHAGEAL [...] CVC TUNNELED Right 07/07/2016 Laterality: Right; Surgeon: Kaylin Grider MD; Location: [facility] INTERVENTIONAL RADIOLOGY (VIR) CARDIAC VEIN ELECTRODE PLACEMENT FOR LV PACING N/A 05/26/2016 Laterality: N/A; Surgeon: Yi Cody MD; Location: [facility] EP PACEMAKER PLACEMENT N/A 05/26/2016 Laterality: N/A; Surgeon: Yi Cody MD; Location: [facility] EP INSERTION CVC TUNNELED Right 05/19/2016 Laterality: Right; Surgeon: Kaylin Grider MD; Location: [facility] INTERVENTIONAL RADIOLOGY (VIR) INSERTION CVC TUNNELED Left 05/18/2016 Laterality: Left; Surgeon: Kaylin Grider MD; Location: [facility] INTERVENTIONAL RADIOLOGY (VIR) PACEMAKER ELECTRODE REMOVAL [...] Versa CARDIAC PACEMAKER PLACEMENT 08/31/2003 Implant: Medtronic [id number] [place] [address] APPENDECTOMY AR ANESTH,OPEN HEART SURGERY+PUMP Family History Problem Relation [...] Use Smoking status: Never Smokeless tobacco: Never Vaping Use Vaping Use: Never used Substance and Sexual Activity Alcohol use: No Drug use: No Sexual activity: Yes Partners: Male Social History Narrative Merged History Encounter MEDICATIONS: Current Outpatient Medications Medication Sig ALPRAZolam 0.5 MG tablet Take 1 tablet by mouth At bedtime as needed for Anxiety. B Vtcxbir-T-Fdbcu Acid (NEPHRO-BALTAZAR PO) Take by mouth. Cyclobenzaprine 10 MG tablet Take 1 tablet by mouth Every 8 hours as needed. doxycycline hyclate 100 MG capsule Take 1 capsule by mouth 2 times daily. fluconazole 200 MG tablet Take 1 tablet by mouth See admin instructions. Starting 10/21, take 2 tablets once per day through 10/30. Starting 10/31, take 1 tablet once per day levothyroxine 75 MCG tablet Take 1 tablet by mouth every morning before breakfast. Midodrine HCl 10 MG tablet Take 1 tablet by mouth. 1 Tablet Sunday, Sunday, Sunday 2 Tablets Sun And Sun pantoprazole [address] tablet DR Take 1 tablet by mouth daily. Sucroferric Oxyhydroxide (VELPHORO PO) Take 500 mg by mouth 2 times daily. With each meal Tamsulosin HCl 0.4 MG capsule Take 1 capsule by mouth daily with dinner. levETIRAcetam 250 MG tablet Take 1 tablet by mouth 2 times daily. rifAXIMin 550 MG tablet Take 1 tablet by mouth 2 times daily. (Patient not taking: Reported on 12/05/2023) warfarin 4 MG tablet Take 2 tablets by mouth every evening at 6 PM. ALLERGIES: Patient has no known allergies. PHYSICAL EXAM: BP 108/62 (BP Location: Left arm, BP Position: Sitting) Pulse 74 Ht 1.702 m (5' 7) Wt 77.1 kg (170 lb) SpO2 93% BMI 26.63 kg/m Smoking Status Never Constitutional: Breathing easily, in no acute distress. Does appear cachectic. HEENT: PER, mild scleral icterus, normal appearing oropharynx, no appreciable cervical LAD Cardiovascular: Normal rate and regular rhythm. Right chest permacath. Pulmonary/Chest: Breath sounds normal. Abdominal: Soft. NT/ND. Hepatomegaly. Extrem: No appreciable LE edema. No gross focal motor deficits in [...] record. Lab Results Component Value Date/Time PT 20.8 (H) 12/05/2023 10:36 AM PT 27.7 (H) 06/01/2016 04:13 AM INR 1.8 (H) 12/05/2023 10:36 AM INR 2.6 (H) 06/01/2016 04:13 AM PLATELET 255 12/05/2023 10:36 AM PLATELET 196 08/07/2016 09:38 AM PLATELET 281 06/05/2016 12:00 AM WBC 11.34 (H) 12/05/2023 10:36 AM WBC 7.3 08/07/2016 09:38 AM WBC 9.2 06/05/2016 12:00 AM HGB 12.3 (L) 12/05/2023 10:36 AM HGB 9.8 (L) 08/07/2016 09:38 AM HGB 9.3 06/05/2016 12:00 AM POTASSIUM 4.4 12/05/2023 10:36 AM POTASSIUM 5.34 (H) 09/15/2021 12:20 AM POTASSIUM 6.8 06/06/2016 12:00 AM POTASSIUM 4.59 08/25/2003 09:23 AM BUN 57 (H) 12/05/2023 10:36 AM BUN 59 (H) 08/07/2016 09:38 AM CREATSERUM 8.10 (H) 12/05/2023 10:36 AM CREATSERUM 2.06 (H) 08/07/2016 09:38 AM CREATSERUM 3.0 06/05/2016 12:00 AM CREATSERUM 0.77 11/25/2014 10:42 AM GFR 6 (L) 12/05/2023 10:36 AM GFR 34 (L) 10/20/2021 05:52 AM GFR 32 (L) 08/07/2016 09:38 AM Lab Results Component Value Date ALT 56 (H) 12/05/2023 AST 63 (H) 12/05/2023 GGT 516 (H) 02/06/2023 ALKPHOS 337 (H) 12/05/2023 BILITOTAL 1.0 12/05/2023 BILIDIRECT 0.3 (H) 12/05/2023 Serologic Workup: Hepatitis C AB: Negative Hepatitis [...] visualized due to artifact. Mean gradient 11 mmHg.Mild-moderate paravalvular and valvular regurgitation. S/p mitral valve [...] bilateral pleural effusions, right greater than left. MELD 3.0: 24 at 12/05/2023 10:36 AM MELD-Na: 26 at 12/05/2023 10:36 AM Calculated from: Serum Creatinine: 8.10 mg/dL (Using max of 3 mg/dL) at 12/05/2023 10:36 AM Serum Sodium: 136 mmol/L at 12/05/2023 10:36 AM Total Bilirubin: 1.0 mg/dL at 12/05/2023 10:36 AM Serum Albumin: 4.4 g/dL (Using max of 3.5 g/dL) at 12/05/2023 10:36 AM INR(ratio): 1.8 at 12/05/2023 10:36 AM Age at listing (hypothetical): 73 years Sex: Male at 12/05/2023 10:36 AM ASSESSMENT AND PLAN: Christian Amador is a 73 y.o. 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 He was seen by our inpatient team 08/26-10/10/2021 for new concerns of cirrhosis.Patient initially transferred for acute hypoxic respiratory insufficiency secondary to COVID pneumonia, UTI, TIEN. Hospital course c/b left retroperitoneal bleed in setting of warfarin use and thrombocytopenia, pelvic fractures. He was noticed to have increasing hyperbilirubinemia. No recent episodes of hematemesis, melena, abdominal distention. Per , he was found to have increased LFTs in thepast, referred to Gastroenterology with negative workup, although unclear what was done. No historyof significant alcohol use, no IV drug use or history of hepatitis. No family history of liver disease. Patient also with no other reported liver disease. CTAP 09/02/21 with left retroperitoneal hemorrhage, no evidence of hemoperitoneum, bilateral pleural effusions, pelvic fractures, cirrhosis morphology of liver. Last echo with EF 54%. On iHD 4 times weekly. 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 Will recheck MELD labs today. Ascites: Not present on exam. I would recommend adherence to a strict 2 gram, low sodium diet. EV: Variceal screening has been deferred for now given his medical conditions, need for AC . HE: A&Ox3. Continue Xifaxan. HCC: I would recommend ongoing surveillance for HCC with abdominal imaging in conjunction with serum AFP every 6 months. US and AFP ordered. Reviewed outside CT from 07/2023 no liver lesions. . 2. Frailty/deconditioning/severe protein calorie malnutrition. Recommend Boost/Ensure/Glucerna shakes 1-2 per meal and most importantly 1 before bedtime. Protein: 1.2-1.5 g/kg/day, calories: 30-35 kcal/kg/day. 3. Again discussed disease progression and multiple comorbidities. Answered all questions to pt satisfaction. I discussed my impression and plan with [...] strictly avoid raw shellfish given the risk ofVibrio Vulnificus in cirrhotics. FOLLOW-UP -For follow up, he will return to Dr. Fry's clinic in 4 months. Thank you for allowing me to participate in the care of Christian Amador. PATRICIA Purdy Hepatology Nurse Practitioner Division of Gastroenterology, Hepatology, and Nutrition documented in this [facility]01-17-2024 Instructions* Patient Instructions* PATRICIA Flower - 12/05/2023 10:00 AM EST Labs today Schedule your ultrasound locally for 01/2024 Return to clinic in 4 months documented in this [facility]11-15-2023 Telephone encounter Note* Telephone Encounter - Tayler Pineda RN - 10/03/2023 10:52 AM EST Provider: Dr Fry Name of Medication: rifAXIMin [...] CT triple phase to follow up liver lesion;however this appears stable from previous imaging so [...] to clinic in 4 months with Kelby Chance. [facility]11-15-2023 Miscellaneous Notes* Telephone Encounter - Tayler Pineda RN - 10/03/2023 10:52 AM EST Provider: Dr Fry Name of Medication: rifAXIMin [...] CT triple phase to follow up liver lesion;however this appears stable from previous imaging so [...] to clinic in 4 months with Kelby Chance. * Telephone Encounter - Leia Chatman - 10/03/2023 10:40 AM EST ARIEL REFILL REQUEST Provider: Dr Fry Name of [...] supply PREFERRED PHARMACY IS [facility] documented [facility] this [facility] Telephone encounter Note* Telephone Encounter - Leia Chatman - 10/03/2023 10:40 AM EST ARIEL REFILL REQUEST Provider: Dr Fry Name of [...] supply PREFERRED PHARMACY IS ATTACHED TO ENCOUNTER [employer] [facility]08-25-[facility]23 History of Present illness Narrative* Vaishnavi Fry DO - 07/13/2023 9:00 AM EDT -Referring Provider for today's consult: Vaishnavi Fry DO -Primary Care Provider: Castro Ferrara History of Present Illness Christian Amador is a 73 y.o. male who presents to the [facility] today for consultation regarding his diagnosis of Follow-up. I have reviewed his medical, surgical, family and social history and have updated medication and allergy information in the computerized patient record. I have also personally reviewed pertinent outside hospital documentation, laboratory results and imaging asoutlined below. Mr. 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 His medical history is also [...] with a chest tube and antibiotics. During thisadmission, he underwent abdominal imaging which revealed a [...] Anemia, Arthritis, Atrial flutter, Atrial tachycardia, BPH (benignprostatic hyperplasia), CAD (coronary artery disease), Cardiomyopathy, Congestive [...] Laterality: N/A; Surgeon: Remy Ferrer MD; Location: [facility] INTERVENTIONAL RADIOLOGY (VIR) INSERTION CVC TUNNELED N/A 10/03/2021 Laterality: N/A; Surgeon: Kaylin Duran II, MD; Location: [facility] INTERVENTIONAL RADIOLOGY (VIR) PLACEMENT PROBE FOR TRANSESOPHAGEAL ECHOCARDIOGRAPHY N/A 09/23/2021 Laterality: N/A; Surgeon: Sadia Nieto MD; Location: [facility] MAIN OR ESS NASAL DIAGNOSTIC Bilateral 09/20/2021 Laterality: Bilateral; Surgeon: You Wise MD; Location: [facility] MAIN OR ESS SPHENOID SINUSOTOMY WITH REMOVAL TISSUE Right 09/20/2021 Laterality: Right; Surgeon: You Wise MD; Location: [facility] MAIN OR ESS TOTAL ETHMOIDECTOMY Right 09/20/2021 Laterality: Right; Surgeon: You Wise MD; Location: [facility] MAIN OR REMOVAL CVC TUNNELED Right 07/07/2016 Laterality: Right; Surgeon: Kaylin Grider MD; Location: [facility] INTERVENTIONAL RADIOLOGY (VIR) CARDIAC VEIN ELECTRODE PLACEMENT FOR LV PACING N/A 05/26/2016 Laterality: N/A; Surgeon: Yi Cody MD; Location: [facility] EP PACEMAKER PLACEMENT N/A 05/26/2016 Laterality: N/A; Surgeon: Yi Cody MD; Location: [facility] EP INSERTION CVC TUNNELED Right 05/19/2016 Laterality: Right; Surgeon: Kaylin Grider MD; Location: [facility] INTERVENTIONAL RADIOLOGY (VIR) INSERTION CVC TUNNELED Left 05/18/2016 Laterality: Left; Surgeon: Kaylin Grider MD; Location: [facility] INTERVENTIONAL RADIOLOGY (VIR) PACEMAKER ELECTRODE REMOVAL N/A 05/08/2016 Laterality: N/A; Surgeon: Luigi Mart MD; Location: [facility] EP COLONOSCOPY DIAGNOSTIC N/A 03/20/2016 Laterality: N/A; Surgeon: Jeremiah García MD; Location: [facility] ENDOSCOPY EP IMPLANT BIVENTRICULAR PACEMAKER TOTAL 08/07/2013 3 leads CARDIAC VEIN ELECTRODE PLACEMENT FOR LV PACING N/A 08/07/2013 Laterality: N/A; Surgeon: Favio Kline MD; Location: [facility] EP PACEMAKER ELECTRODE REMOVAL 08/07/2013 Surgeon: Favio Kline MD; Location: [facility] AV NODE ABLATION N/A 02/26/2013 Laterality: N/A; Surgeon: Favio Kline MD; Location: [facility] EP CARDIAC PACEMAKER PLACEMENT 10/20/2010 Implant: [employer] [id number] Versa CARDIAC PACEMAKER PLACEMENT 08/31/2003 Implant: [employer]onic [id number] [place] [address] APPENDECTOMY AR ANESTH,OPEN HEART SURGERY+PUMP Home Medications Current Outpatient Medications Medication Sig ALPRAZolam 0.5 MG tablet Take 1 tablet by mouth At bedtime as needed for Anxiety. B Ryppldx-B-Aunno Acid (NEPHRO-BALTAZAR PO) Take by mouth. Cyclobenzaprine 10 MG tablet Take 1 tablet by mouth Every 8 hours as needed. doxycycline hyclate 100 MG capsule Take 1 capsule by mouth 2 times daily. levothyroxine 75 MCG tablet Take 1 tablet by mouth every morning before breakfast. Midodrine HCl 10 MG tablet Take 1 tablet by mouth. 1 Tablet Sunday, Sunday, Sunday 2 Tablets Sun Th And Sun pantoprazole [address] [...] pain, dyspnea on exertion, paroxysmal nocturnal dyspnea, peripheraledema. PULMONARY: Negative for any shortness of breath, [...] temperature source Temporal, height 1.702 m (5' 7), weight 79.4 kg (175 lb). Wt Readings [...] visualized due to artifact. Mean gradient 11 mmHg.Mild-moderate paravalvular and valvular regurgitation. S/p mitral valve [...] right greater than left. Assessment and Plan Christian Amador is a 73 y.o. male with [...] CT triple phase to follow up liver lesion;however this appears stable from previous imaging so [...] to clinic in 4 months with Kelby Chance. Thank you for allowing us to participate in the care of Christian Amador. Vaishnavi Fry DO Guidance Director of Clinical Medicine Division of Gastroenterology, Hepatology and Nutrition [facility] Pager: [phone] * Ismael Mora - 07/13/2023 9:00 AM EDT This Proof Inspector verified the patients name and date of . documented in this encounterOS[facility] Wen [facility] March 29, 2023 7:23pm Note Date/Time March 29, 2023 7:23p [facility] Medical Records Department [address] [place] [address] Progress Note - Surgery 03/29/231919 MR#: [id number] Acct: [id number] Name: CHRISTIAN AMADOR Rep #:[id number] : 1950 73 From: Ford Wen MD PCP: Dr. Castro Ferrara, Status:REG ER Location: ED Subjective Subjective Patient presented to the emergency room with bleeding at the removal site from the right IJ tunneled dialysis catheter Objective Data Objective Data Vital Signs: Vital Signs Temp Pulse Resp BP Pulse Ox O2 Del Method 98 F 73 14 113/45 L 100 Room Air 03/29/23 17:03 03/29/23 17:12 03/29/23 17:12 03/29/23 17:12 03/29/23 17:12 03/29/23 17:12 Oxygen Delivery Method Room Air Weight: 174 lb 7 oz Body Mass Index (BMI) 27.3 Lab / Micro Data Result Diagrams: 03/29/23 17:30 03/29/23 17:30 Labs: Laboratory Results - last 24 hr 03/29/23 17:30: WBC 9.9, RBC 3.09 L, Hgb 9.8 L, Hct 31.1 L, MCV 100.6 H, MCH 31.7, MCHC 31.5 L, RDW Std Deviation 58.2 H, RDW Coeff of Jennifer 15.8 H, Plt Count 247, MPV 9.4, Immature Gran % (Auto) 0.500, Neut % (Auto) 66.0, Lymph % (Auto) 16.2 L, Ingham % (Auto) 11.1 H, Eos % (Auto) 5.5 H, Baso % (Auto) 0.7, Absolute Neuts (auto) 6.5, Absolute Lymphs (auto) 1.60, Nucleated RBC % 0 03/29/23 17:30: PT 28.3 H, INR 2.6 03/29/23 17:30: Sodium 139, Potassium 4.3, Chloride 99, Carbon Dioxide 27.0, Anion Gap 13, BUN 79 H, Creatinine 9.97 H*, Estim Creat Clear Calc 6.08, Est GFR(MDRD) Af Amer 7 L, Est GFR (MDRD) Non-Af 6 L, BUN/Creatinine Ratio 7.9 L, Glucose 106, Calcium 9.5 Assessment & Plan Assessment/Plan (1) Problem with dialysis access: PLAN: Plan There was bruising and slight tunnel hematoma from the site of the removal of the previous right chest tunneled dialysis catheter. The new catheter site appeared relatively dry. I cleansed the area with Betadine I then personally held pressure for 1 hour. There was still some oozing at the site so I then used 1% lidocaine 4 cc and then put two 3-0 nylon sutures then. I placed fibulaare and held pressure and there was still some oozing so then I used topical thrombin saturated another piece of fibular placed over the exit site placed with 4 x 4's ABD and a last press pressure dressing and had nursing hold anotherhalf hour. At that point it appeared the bleeding is stopped. After discussingwith the and patient elected to go home. If there is further bleeding thathe will need to return. He will not perform dialysis at home tomorrow. If there are any difficulties since instructed to contact the office or myself. I believe that the bleeding from the tunneled catheter site that was removed wassecondary to the chronicity of that which that dialysis catheter was in place for 2 years as well as the patient's Coumadin anticoagulation. Total blood lossapproximately 50 cc. Ford Wen M.D., F.A.C.S. 03/29/231922 <Electronically signed by Ford Wen MD> Cosigner Signature (if applicable): CC: ~ Signed [facility] Work Phone: 1(689) 515-619105-11-[address] Palafox [facility] March 29, 2023 9:10pm Note Date/Time March 29, 2023 5:21p m [facility] Medical Records Department [address] [place] [address] Emergency Department Summary 03/29/23 MR#: [id number] Acct: [id number] Name: CHRISTIAN AMADOR Rep #:[id number] : 1950 73 From: Matt Drake PCP: Dr. Castro Ferrara, DO Status:REG ER Location: ED HPI History of Present Illness Chief Complaint: Wound [employer] [facility] [employer] Medical History ABLA (acute blood loss anemia) Abnormal results of thyroid function studies Airway intubation performed without difficulty Anemia in chronic kidney disease Anemia requiring transfusions Atherosclerotic heart disease of [place] band coronary artery without angina pectoris Atrial flutter Bacterial endocarditis Biventricular cardiac pacemaker in situ (~05/26/16) CAD (coronary artery disease) Cardiomyopathy in disease classified elsewhere Cardiopulmonary arrest with successful resuscitation Cirrhosis CKD stage G5/A1, GFR <15 and albumin creatinine ratio <30 mg/g Coagulopathy COVID-19 Diffuse large b-cell lymphoma, extranodal and solid organ sites Dyspnea Encounter for long-term (current) use of high-risk medication Endocarditis due to Staphylococcus Epilepsy ESRD (end stage renal disease) on dialysis Gout History of diffuse large B-cell lymphoma History of DVT (deep vein thrombosis) History of non-Hodgkin's lymphoma History of pacemaker History of rheumatic fever as a child HLD (hyperlipidemia) Hyperthyroidism Hypothyroidism (acquired) Infectious endocarditis Iron deficiency intermediate (current) use of 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 Mild cognitive impairment MRSA (methicillin resistant Staphylococcus aureus) infection Non-rheumatic mitral regurgitation Non-rheumatic mitral valve stenosis Non-ST elevation (NSTEMI) myocardial infarction MIA (obstructive sleep apnea) Other specified cardiac dysrhythmias Paroxysmal ventricular tachycardia Polyneuropathy Pure hypercholesterolemia Rheumatic aortic stenosis Rheumatic mitral insufficiency Sepsis TIA (transient ischemic attack) (~11/19/15) Vitamin D insufficiency Home Medications tamsulosin 0.4 mg capsule 0.4 mg PO DINNER prostate 05/19/21 [History Last Taken 01/09/22] levothyroxine 75 mcg tablet 75 mcg PO DAILY thyroid 08/24/21 [History Last Taken 01/10/22] rifaximin 550 mg tablet (Xifaxan) 550 mg PO BID diarrhea 01/10/22 [History Last Taken 01/09/22] vitamin B complex-vitamin C-folic acid 0.8 mg tablet (Nephro-Baltazar) 1 tab PO DAILY vitamin 01/10/22 [History Last Taken 01/09/22] alprazolam 1 mg tablet (Xanax) 0.5 mg PO QHS Sleep 02/01/22 [History Last Taken Unknown] levetiracetam 250 mg tablet 250 mg PO BID #60 tabs 10/16/22 [Rx Last Taken Unknown] pantoprazole 40 mg tablet,delayed release 40 mg PO QAM #90 tabs 10/16/22 [Rx Last Taken Unknown] cyclobenzaprine 10 mg tablet 10 mg PO BID PRN PRN Muscle Pain 11/27/22 [History Last Taken Unknown] doxycycline hyclate 100 mg tablet 100 mg PO BID infection 11/27/22 [History Last Taken Unknown] fluconazole 200 mg tablet (Diflucan) 200 mg PO DAILY infection 11/27/22 [History Last Taken Unknown] warfarin 1 mg tablet 1.5 mg PO QWEEK blood thinner 01/17/23 [History Last Taken 03/28/23] warfarin 3 mg tablet 3 mg PO DAILY blood thinner 01/17/23 [History Last Taken Unknown] amoxicillin 500 mg capsule 500 mg PO DAILY 03/27/23 [History Last Taken Unknown] Allergy/AdvReac Type Severity Reaction Status Date / Time No Known Allergies Allergy Verified 03/29/23 17:04 Family History Father CAD (coronary artery disease) CABG Brother CAD (coronary artery disease) CABG Mother Diabetes Sister Breast cancer Diabetes Sister Cancer breast Diabetes Surgical History dual chamber pacemaker implantation (~10/2010) History of aortic valve replacement (~08/2003) History of appendectomy History of atrioventricular chiquita ablation History of cholecystectomy History of evacuation of hematoma History of heart valve replacement with mechanical valve History of heart valve replacement with mechanical valve History of mechanical aortic valve replacement (~1986) History of mechanical aortic valve replacement (~08/24/03) History of mitral valve repair (~08/24/03) Social History household members: spouse housing: house current occupational status: retired current occupational exposures/hazards: No history of recent travel: No Smoking Status: Never smoker alcohol intake: never substance use type: does not use caffeine: No what type of physical activity do you participate in: weight training and otherdetails: Nustep frequency: 3-4 times per week duration: 45-60 minutes/day seatbelt use: always do you feel safe at home: Yes EXAM Physical Exam Const Vital Signs: 03/29/23 17:03 03/29/23 17:12 03/29/23 19:53 Temperature 98 F Temperature Source Temporal Pulse Rate 72 73 71 Respiratory Rate 16 14 18 Blood Pressure 104/45 L 113/45 L 113/50 L Blood Pressure Mean 64 67 71 Pulse Ox 100 100 100 Oxygen Delivery Method Room Air Room Air Room Air MDM MDM MDM Narrative Medical decision making narrative: HISTORY OF PRESENT ILLNESS: 73-year-old male here for bleeding from recently placed dialysis catheter. Thiswas done by vascular surgery Dr. Wen. REVIEW OF SYSTEMS: Pertinent positives: Bleeding from right chest port Pertinent negatives: Lightheadedness, fatigue, chest pain PHYSICAL EXAM: Nursing triage notes reviewed, Vital signs reviewed Constitutional: please see mdm HENT: MMM Eyes: Pupils equal round and reactive to light, Extraocular muscles intact Neck: No stridor, no JVD, full neck ROM Lungs: Clear to auscultation, No wheezing or rales. No increased work of breathing, no conversational dyspnea, no accessory muscle use, no nasal flaring. No respiratory distress noted Heart: Regular rate and rhythm, No murmurs, No rubs and No gallops, 2+ distal pulses (radial, femoral, posterior tibial) in all extremities Abdomen: Soft, there is no tenderness, rigidity, rebound or guarding, no obviousperitoneal signs, no palpable pulsatile abdominal masses, no auscultated abdominal bruit : No CVAT Extremities: No edema Neuro: No focal neurological deficits, cranial nerves II through XII intact, 5/5strength in all extremities. Intact sensation to light touch in all extremities,2+ reflexes bilateral patella tendons. Normal gait. No ataxia. Skin: No rash or lesions noted MEDICAL DECISION MAKING: Chief Complaint: Bleeding dialysis fistula. External records reviewed: Chest x-ray from today shows IMPRESSION: A right-sided double-lumen catheter is seen with the tip at the junction of the superior vena cava and right atrium. Otherwise, there has been essentially no change. ? MDM Narrative: Patient had oozing from a suture site in the right chest. Pressure was applied. Labs including INR were obtained. INR was therapeutic. No need for reversal or emergent vitamin K treatment. He is not significantly anemic. I discussed the case with Dr. Wen. He would like to come in and evaluate the patient for himself. Dr. Wen recommended ED observation approxi-1 hour. After this observation. Patient had no evidence of bleeding. He is appropriate for discharge home. Factors affecting care: Liver cirrhosis, cardiomyopathy, ESRD, DVT, lymphoma, hypothyroidism, NSTEMI, on warfarin Social determinants of health: none History obtained from others: the patient's Shared decision making: I will have a discussion with the patient and or visitors regarding risk/benefits of further testing or admission. They will be made aware of of the risk/benefits inherent in this decision they will be given the opportunity to voice understanding. Consults: Vascular surgery Lab Data Labs: Laboratory Results - last 24 hr 03/29/23 03/29/23 03/29/23 17:30 17:30 17:30 WBC 9.9 RBC 3.09 L Hgb 9.8 L Hct 31.1 L MCV 100.6 H MCH 31.7 MCHC 31.5 L RDW Std Deviation 58.2 H RDW Coeff of Jennifer 15.8 H Plt Count 247 MPV 9.4 Immature Gran % (Auto) 0.500 Neut % (Auto) 66.0 Lymph % (Auto) 16.2 L Ingham % (Auto) 11.1 H Eos % (Auto) 5.5 H Baso % (Auto) 0.7 Absolute Neuts (auto) 6.5 Absolute Lymphs (auto) 1.60 Nucleated RBC % 0 PT 28.3 H INR 2.6 Sodium 139 Potassium 4.3 Chloride 99 Carbon Dioxide 27.0 Anion Gap 13 BUN 79 H Creatinine 9.97 H* Estim Creat Clear Calc 6.08 Est GFR (MDRD) Af Amer 7 L Est GFR (MDRD) Non-Af 6 L BUN/Creatinine Ratio 7.9 L Glucose 106 Calcium 9.5 Discharge Plan Triage Chief Complaint: Wound ED Provider: Matt Palafox Dx/Rx/DC Orders Prescriptions: No Action alprazolam [Xanax] 1 mg tablet 0.5 mg PO QHS levetiracetam 250 mg tablet 250 mg PO BID Qty: 60 6RF cyclobenzaprine 10 mg tablet 10 mg PO BID PRN PRN (Reason: Muscle Pain) doxycycline hyclate 100 mg tablet 100 mg PO BID fluconazole [Diflucan] 200 mg tablet 200 mg PO DAILY amoxicillin 500 mg capsule 500 mg PO DAILY Label Comments: take 2 capsules by mouth immediately then 1 capsule by mouth three times a day until finished tamsulosin 0.4 mg capsule 0.4 mg PO DINNER levothyroxine 75 mcg tablet 75 mcg PO DAILY Nephro-Baltazar 0.8 mg tablet 1 tab PO DAILY Label Comments: TAKE 1 TABLET BY MOUTH EVERY DAY Xifaxan 550 mg Tablet 550 mg PO BID warfarin 3 mg Tablet 3 mg PO DAILY Protocol: Dose Management Condition: Sunday Dose/Route: 4 mg Instruction: 1 x 1 mg tablet, 1 x 3 mg tablet Condition: Sunday Dose/Route: 4 mg Instruction: 1 x 1 mg tablet, 1 x 3 mg tablet Condition: Sunday Dose/Route: 4 mg Instruction: 1 x 1 mg tablet, 1 x 3 mg tablet Condition: Sunday Dose/Route: 4 mg Instruction: 1 x 1 mg tablet, 1 x 3 mg tablet Condition: Dose/Route: 4 mg Instruction: 1 x 1 mg tablet, 1 x 3 mg tablet Condition: Sunday Dose/Route: 4 mg Instruction: 1 x 1 mg tablet, 1 x 3 mg tablet Condition: Sunday Dose/Route: 4 mg Instruction: 1 x 1 mg tablet, 1 x 3 mg tablet Protocol Text: Adjustment Start Date: Sunday03/26/23 INR Value: 3.2 INR Date: 03/26/23 Recheck Date: 04/02/23 Rx Instructions: Every day except wednesdays warfarin 1 mg Tablet 1.5 mg PO QWEEK Protocol: Dose Management Condition: Sunday Dose/Route: 4 mg Instruction: 1 x 1 mg tablet, 1 x 3 mg tablet Condition: Sunday Dose/Route: 4 mg Instruction: 1 x 1 mg tablet, 1 x 3 mg tablet Condition: Sunday Dose/Route: 4 mg Instruction: 1 x 1 mg tablet, 1 x 3 mg tablet Condition: Sunday Dose/Route: 4 mg Instruction: 1 x 1 mg tablet, 1 x 3 mg tablet Condition: Dose/Route: 4 mg Instruction: 1 x 1 mg tablet, 1 x 3 mg tablet Condition: Sunday Dose/Route: 4 mg Instruction: 1 x 1 mg tablet, 1 x 3 mg tablet Condition: Sunday Dose/Route: 4 mg Instruction: 1 x 1 mg tablet, 1 x 3 mg tablet Protocol Text: Adjustment Start Date: Sunday03/26/23 INR Value: 3.2 INR Date: 03/26/23 Recheck Date: 04/02/23 Rx Instructions: every sunday pantoprazole 40 mg tablet,delayed release (DR/EC) 40 mg PO QAM Qty: 90 3RF Primary Care Provider: Castro Ferrara Referrals: Castro Ferrara DO [Primary Care Provider] - What to do if you have Problems For any increased pain, shortness of breath, bleeding, nausea or vomiting, chestpain, or any unexpected problems, contact your Primary Care Provider. Call [facility] ([phone]) or report to the closest Emergency Room. Call 911 if necessary. 03/29/232109 <Electronically signed by Matt Palafox DO> Cosigner Signature (if applicable): CC: Dr. Castro Ferrara DO ~ Signed [facility] Work Phone: 1([phone]) 519-310305-11-[address] Wen [facility] March 29, 2023 11:15am Note Date/Time March 29, 2023 11:15 am [facility] Medical Records Department [address] [place] [address] Instructions for Home/Discharge Instructions 03/29/23 1112 MR#: [id number] Acct: [id number] Name: CHRISTIAN AMADOR Rep #:[id number] : 1950 73 From: Ford Wen MD PCP: Dr. Castro Ferrara DO Status:REG [facility] Discharge Instructions Diet Discharge Diet: Renal Diet Activity Discharge Activity: May Not Drive and May Not Shower (Please do not shower over the catheters for at least 2 weeks. ) Lifting Restrictions: 10 pound weight lifting restriction for 1 week Dressing / Incision Call your doctor if your incision/area has: Continuous Slow Oozing, Sudden Increased Bleeding and Increased Redness Call your doctor if you observe: Fever of 101 or Higher Additional Dressing/Incision Instructions:: Leave the current dressing in place for 2 to 3 days if the patient is able to tolerate and there is no signs of blistering. You may then remove the current dressing but reapply a gauze and tape dressing both to the neck site and chest site changing them as needed to keep the areas clean and dry for total of 2 weeks. The neck counterincision is closed with sutures underneath the skin that will dissolve and Steri-Strips. You may remove the Steri-Strips in 10 days. The catheters are and secured in place with nylon suture. This will either slowly extrude itself from the skin or require removal. There is a Dacron cuff that needs to heal thoroughly in the place. If the sutures are still intact then please make an appointment for my office between 2 to 3 months to have thatsuture removed. Follow Up Care Please Follow Up With: Ford Wen MD When: Approximately 2 to 3 months [phone] Test Results: Test results from this visit will be discussed in further detail at your follow- up appointment, if applicable. Discharge Plan Admission Attending Provider: Ford Wen Primary Care Provider: Castro Ferrara Discharge Orders/Prescriptions Prescriptions: No Action alprazolam [Xanax] 1 mg tablet 0.5 mg PO QHS levetiracetam 250 mg tablet 250 mg PO BID Qty: 60 6RF cyclobenzaprine 10 mg tablet 10 mg PO BID PRN PRN (Reason: Muscle Pain) doxycycline hyclate 100 mg tablet 100 mg PO BID fluconazole [Diflucan] 200 mg tablet 200 mg PO DAILY amoxicillin 500 mg capsule 500 mg PO DAILY Label Comments: take 2 capsules by mouth immediately then 1 capsule by mouth three times a day until finished tamsulosin 0.4 mg capsule 0.4 mg PO DINNER levothyroxine 75 mcg tablet 75 mcg PO DAILY Nephro-Baltazar 0.8 mg tablet 1 tab PO DAILY Label Comments: TAKE 1 TABLET BY MOUTH EVERY DAY Xifaxan 550 mg Tablet 550 mg PO BID warfarin 3 mg Tablet 3 mg PO DAILY Protocol: Dose Management Condition: Sunday Dose/Route: 4 mg Instruction: 1 x 1 mg tablet, 1 x 3 mg tablet Condition: Sunday Dose/Route: 4 mg Instruction: 1 x 1 mg tablet, 1 x 3 mg tablet Condition: Sunday Dose/Route: 4 mg Instruction: 1 x 1 mg tablet, 1 x 3 mg tablet Condition: Sunday Dose/Route: 4 mg Instruction: 1 x 1 mg tablet, 1 x 3 mg tablet Condition: Dose/Route: 4 mg Instruction: 1 x 1 mg tablet, 1 x 3 mg tablet Condition: Sunday Dose/Route: 4 mg Instruction: 1 x 1 mg tablet, 1 x 3 mg tablet Condition: Sunday Dose/Route: 4 mg Instruction: 1 x 1 mg tablet, 1 x 3 mg tablet Protocol Text: Adjustment Start Date: Sunday03/26/23 INR Value: 3.2 INR Date: 03/26/23 Recheck Date: 04/02/23 Rx Instructions: Every day except wednesdays warfarin 1 mg Tablet 1.5 mg PO QWEEK Protocol: Dose Management Condition: Sunday Dose/Route: 4 mg Instruction: 1 x 1 mg tablet, 1 x 3 mg tablet Condition: Sunday Dose/Route: 4 mg Instruction: 1 x 1 mg tablet, 1 x 3 mg tablet Condition: Sunday Dose/Route: 4 mg Instruction: 1 x 1 mg tablet, 1 x 3 mg tablet Condition: Sunday Dose/Route: 4 mg Instruction: 1 x 1 mg tablet, 1 x 3 mg tablet Condition: Dose/Route: 4 mg Instruction: 1 x 1 mg tablet, 1 x 3 mg tablet Condition: Sunday Dose/Route: 4 mg Instruction: 1 x 1 mg tablet, 1 x 3 mg tablet Condition: Sunday Dose/Route: 4 mg Instruction: 1 x 1 mg tablet, 1 x 3 mg tablet Protocol Text: Adjustment Start Date: Sunday03/26/23 INR Value: 3.2 INR Date: 03/26/23 Recheck Date: 04/02/23 Rx Instructions: every sunday pantoprazole 40 mg tablet,delayed release (DR/EC) 40 mg PO QAM Qty: 90 3RF Referrals / Follow Up: Castro Ferrara DO [Primary Care Provider] - Disposition Disposition (needs filled in before D/C Order can be placed): Home, Self Care 03/29/23 1115<Electronically signed by Ford Wen MD>Ford Wen MD CC: Dr. Castro Ferrara, DO ~ Signed [facility] Work Phone: 1(329) 453-949205-11-2023 History and physical note Author Dr. Wen [facility] March 29, 2023 9:04am Note Date/Time March 29, 2023 8:51a m [facility] Medical Records Department [address] [place] [address] History & Physical Exam 03/29/23 0850 MR#: [id number] Acct: [id number] Name: CHRISTIAN AMADOR Rep #:[id number] : 1950 73 From: Ford Wen MD PCP: Dr. Castro Ferrara, Status[place] [place] [facility] History and Physical Date of Admission: 03/29/23 isit Reasons:?CVC EXCHANGE FOR DAMAGED ART LUMEN Chief Complaint: CVC exchange consult Provider Network Analyst Required: No Is patient in pain?: No Allergies No Known Allergies Allergy (Verified 03/27/23 14:46) Medications tamsulosin 0.4 mg capsule 0.4 mg PO DINNER prostate 05/19/21 [History Confirmed 03/27/23] levothyroxine 75 mcg tablet 75 mcg PO DAILY thyroid 08/24/21 [History Confirmed 03/27/23] rifaximin 550 mg tablet (Xifaxan) 550 mg PO BID diarrhea 01/10/22 [History Confirmed 03/27/23] vitamin B complex-vitamin C-folic acid 0.8 mg tablet (Nephro-Baltazar) 1 tab PO DAILY vitamin 01/10/22 [History Confirmed 03/27/23] alprazolam 1 mg tablet (Xanax) 0.5 mg PO QHS Sleep 02/01/22 [History Confirmed 03/27/23] levetiracetam 250 mg tablet 250 mg PO BID #60 tabs 10/16/22 [Rx Confirmed 03/27/23] pantoprazole 40 mg tablet,delayed release 40 mg PO QAM #90 tabs 10/16/22 [Rx Confirmed 03/27/23] cyclobenzaprine 10 mg tablet 10 mg PO BID PRN PRN Muscle Pain 11/27/22 [History Confirmed 03/27/23] doxycycline hyclate 100 mg tablet 100 mg PO BID infection 11/27/22 [History Confirmed 03/27/23] fluconazole 200 mg tablet (Diflucan) 200 mg PO DAILY infection 11/27/22 [History Confirmed 03/27/23] warfarin 1 mg tablet 1.5 mg PO QWEEK blood thinner 01/17/23 [History Confirmed 03/27/23] warfarin 3 mg tablet 3 mg PO DAILY blood thinner 01/17/23 [History Confirmed 03/27/23] amoxicillin 500 mg capsule ea PO 03/27/23 [History Confirmed 03/27/23] PFSH Medical History? ABLA (acute blood loss anemia) Abnormal results of thyroid function studies Airway intubation performed without difficulty Anemia in chronic kidney disease Anemia requiring transfusions Atherosclerotic heart disease of match-e-be[place]she[place]wish band coronary artery without angina pectoris Atrial flutter Bacterial endocarditis Biventricular cardiac pacemaker in situ (~05/26/16) CAD (coronary artery disease) Cardiomyopathy in disease classified elsewhere Cardiopulmonary arrest with successful resuscitation Cirrhosis CKD stage G5/A1, GFR <15 and albumin creatinine ratio <30 mg/g Coagulopathy COVID-19 Diffuse large b-cell lymphoma, extranodal and solid organ sites Dyspnea Encounter for long-term (current) use of high-risk medication Endocarditis due to Staphylococcus Epilepsy ESRD (end stage renal disease) on dialysis Gout History of diffuse large B-cell lymphoma History of DVT (deep vein thrombosis) History of non-Hodgkin's lymphoma History of pacemaker History of rheumatic fever as a child HLD (hyperlipidemia) Hyperthyroidism Hypothyroidism (acquired) Infectious endocarditis 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 dual chamber pacemaker implantation (~10/2010) History of aortic valve replacement (~08/2003) History of appendectomy History of atrioventricular chiquita ablation History of cholecystectomy History of evacuation of hematoma History of heart valve replacement with mechanical valve History of heart valve replacement with mechanical valve History of mechanical aortic valve replacement (~1986) History of mechanical aortic valve replacement (~08/24/03) History of mitral valve repair (~08/24/03) Family History? Father?? CAD (coronary artery disease) ?? ? CABGBrother CAD (coronary artery disease) ?? ? CABGMother DiabetesSister Breast cancer DiabetesSister Cancer ?? ? breast Diabetes Social History? household members:? spouse housing:? house current occupational status:? retired current occupational exposures/hazards:? No history of recent travel:? No Smoking Status:? Never smoker alcohol intake:? never substance use type:? does not use caffeine:? No what type of physical activity do you participate in:? weight training and otherdetails: Nustep frequency:? 3-4 times per week duration:? 45-60 minutes/day seatbelt use:? always do you feel safe at home:? Yes HPI HPI HPI: 73-year-old gentleman is referred because of a malfunctioning tunneled hemodialysis catheters.? It is of note that he was just seen by [facility] gastroenterology on March 26, 2023 regarding anemia.? He was treated for a GI bleedearly in January.? It is of note that he is on home hemodialysis.? Does have a history of cirrhosis.? Patient had this inserted in interventional general radiology October 10, 2021.? 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 The catheter was a glidepath 27 cm tip to cuff.? The arterial line has been damagedScrew with the plastic although they are still using it.? They were told that at the time of his placement they had no other options.? Apparently he had gone down to interventional radiology 3 separate days 3 separate times and this was their last ditch effort 2 years ago to get access.? They remind me that I saw him remotely and attempt to place a fistula and saw no site due to central venous obstruction ROS General General: Yes fatigue; No weight change, appetite, colon cancer, breast cancer or weakness HEENT HEENT: No difficulty swallowing, eye injury, eye surgery, swollen glands or hoarseness Endo Endocrine: Yes thyroid disease; No diabetes mellitus, thyroid cancer, Hair loss, heat intolerance or cold intolerance Skin Skin: No rash or changing moles Breast Breast: No left breast lump, right breast lump, nipple discharge, breast pain, abnormal mammogram, abnormal US or breast enlargement Musc Musculoskeletal: Yes arthritis and gout; No back problems, rheumatoid arthritis or joint pain Cardio Cardiovascular: Yes murmur, pacemaker, heart disease, atrial fibrillation and high blood pressure; No heart attack, heart stent, palpitations, shortness of breat with exertion or chest pain Psych Psychiatric: No depression, anxiety or hearing voices Resp Respiratory: Yes shortness of breath, No sleep apnea, Yes cough, Yes COPD, No asthma, No emphysema and No wheezing Gastro Gastrointestinal: No abdominal pain, No nausea or vomiting, No diarrhea, No constipation, No blood in stool, No acid reflux, Yes hemorrhoids, No ulcers, No gallbladder problem and No black,tarry stools Reji Hematologic: Yes blood thinners, No blood disorders, No bleeding, Yes anemia andNo blood clots Neuro Neurologic: No system reviewed and no additional complaints, except as documented, No as per HPI, No abnormal gait, No abnormal hearing, No abnormal movements, No abnormal speech, No behavioral changes, No burning sensations, No confusion, No convulsions, No disequilibrium, No dizziness, No localized weakness, No frequent falls, No headache(s), No lack of coordination, No loss ofvision, No memory loss, Yes numbness, No other visual disturbances, No radicularpain, No restless legs, No sensory deficit, No syncope, Yes tingling, No tremor(s), No weakness and No other Exam Const General: cooperative, comfortable and no acute distress Nutritional Appearance: average body habitus Eyes Other: Bronzing of the skin noted Chest Other: Right neck chest has an indwelling glidepath tunneled hemodialysis catheter.? The skin is clean and dry.? Taping on the arterial line side.? No erythema no drainage. Resp Effort & Inspection: normal respiratory effort Cardio Rate: regular rate Rhythm: regular rhythm Neuro General: patient alert and patient awake Psych Appearance: grossly normal Assessment and Plan Assessment and Plan (1) Problem with dialysis access: ?Status:?Acute ?Plan: 73-year-old gentleman with a very difficult presentation.? He has pacemaker defibrillator wires.? He has central venous stenosis.? Even at a tertiary centerwith interventional radiology 2 years ago they found this last area to place a catheter and found to stenosis at that time as well. I have offered him 3 options.? We could try to see if we can get a glidepath catheter repair kit to replace the arterial side.? We will look into that for him. Secondary option would be to go to the [facility] and to attempt an [id number] replacement of the current catheter.? There is risk in this and that he already had central venous stenosis at the time of the placement of this catheter 2 years ago Thirdly we could refer to a tertiary center and allow them down at [facility] to either repair the catheter or attempt replacement. He has had an opportunity to ask and have questions answered.? He and his will try to decide how they would like to approach this.? Tentatively I have himscheduled in our [facility] for potential intervention on March 29, 2023.? As noted we are attempting to see if we can get a repair kit for this style the catheter as this is not the catheter that we will utilize locally. Copy: [facility] Ford Wen M.D., F.A.C.S. The patient had been instructed to stop his warfarin. Unfortunately he took it anyway. INR is 2.4. Having to gauge the risk benefit ratio of catheter site infection with a fracture catheter versus bleeding we will attempt to proceed withcatheter exchange today. Ford Wen M.D., F.A.C.S. 03/29/23 0904 <Electronically signed by Ford Wen MD> Cosigner Signature (if applicable): CC: Dr. Castro Ferrara, DO; Dr. Ford Wen MD~ Signed [facility] Work Phone: 1(974) 130-469505-11-2023 Procedure [facility] 03-28-2023 History of Present illness Narrative* Bouchra Lim, DEVAUGHN - 03/28/2023 10:00 AM EDT Patient here today for cystoscopy. Patient escorted to procedure room where procedure was explainedand patient agreed to continue. Sterile scope was [...] Dr. Iyer. Patient tolerated the procedure well. * Darrel Garcia MD - 03/28/2023 10:00 AM EDTAssociated Order(s): CYSTOSCOPY Post-Procedure Diagnose(s): Urinary frequency CYSTOSCOPY Date/Time: 03/28/2023 10:00 AM Performed by: Darrel Garcia MD Authorized by: Darrel Garcia MD The attending physician was present [...] for local anesthesia. The flexible cystoscope was lubricatedand placed into the urethral tract under direct [...] bodies observed. Stone(s) were found within the bladder(a bladder stone was removed using a basket. [...] monitors this. I have advised him to considera biopsy or prostate MRI. unfortunately he is not a candidate for MRI due to his ICD. He also is onblood thinners with target INR of 2.5-3.5 and as such a biopsy would require him going off his anticoagulation. His PCP has been periodically checking his PSA. I have advised him to continue this andconsider a biopsy. He does understand not investigating an elevated PSA could lead to undiagnosed clinically significant prostate cancer. At this time he has other health concerns and would like to follow up on his PSA with his GP. I am happy to see him to discuss further in 3-6 months. At this time he is not interested in this. [facility] Centeno [facility] January 18, 2023 4:50pm Note Date/Time January 18, 2023 9:20 am [facility] Medical Records Department [address] [place] [id number] Progress Note - Hospitalist 01/18/23919 MR#: [id number] Acct: [id number] Name: CHRISTIAN AMADOR Rep #:[id number] : 1950 72 From: Mimi Centeno MD PCP: Dr. Castro Ferrara, DO Status:ADM IN Location: [facility] [id number] Reason for Visit Reason for Visit: Diagnoses Acute posthemorrhagic anemia (01/17/23) Anemia, unspecified (01/17/23) Subjective Subjective Reported no significant complaints this morning, no chest pain or shortness of breath. Objective Data Objective Data Vital Signs: Vital Signs Temp Pulse Resp BP Pulse Ox O2 Del Method 98.4 F 76 16 117/56 L 95 Room Air 01/18/23 06:15 01/18/23 07:45 01/18/23 06:15 01/18/23 06:15 01/18/23 07:45 01/18/23 07:45 Oxygen Delivery Method Room Air Weight: 78.6 kg Body Mass Index (BMI) 27.1 Intake & Output: Intake and Output for Last 24 Hours 01/16/23 01/17/23 01/18/23 23:59 23:59 23:59 Intake Total 600 / 600 275 / 275 Balance 600 / 600 275 / 275 Lab / Micro Data Result Diagrams: 01/18/23 04:09 01/18/23 04:09 Labs: Laboratory Results - last 24 hr 01/17/23 17:40: WBC 7.0, RBC 2.14 L, Hgb 6.8 L, Hct 22.2 L, MCV 103.7 H, MCH 31.8, MCHC 30.6 L, RDW Std Deviation 62.4 H, RDW Coeff of Jennifer 16.6 H, Plt Count 235, MPV 9.0, Immature Gran % (Auto) 0.600, Neut % (Auto) 61.7, Lymph % (Auto) 18.1 L, Ingham % (Auto) 12.9 H, Eos % (Auto) 6.0 H, Baso % (Auto) 0.7, Absolute Neuts (auto) 4.3, Absolute Lymphs (auto) 1.26, Nucleated RBC % 0 01/17/23 17:40: PT 35.8 H, INR 3.6 01/17/23 17:40: Sodium 137, Potassium 4.0, Chloride 98, Carbon Dioxide 30.0, Anion Gap 9, BUN 67 H, Creatinine 7.67 H*, Estim Creat Clear Calc 8.02, Est GFR (MDRD) Af Amer 9 L, Est GFR (MDRD) Non-Af 7 L, BUN/Creatinine Ratio 8.7 L, Glucose 120 H, Calcium 9.2, Total Bilirubin 0.80, AST 72 H, ALT 71 H, Alkaline Phosphatase 481 H, Total Protein 8.0, Albumin 3.2, Globulin 4.8 H, Albumin/Globulin Ratio 0.7 L 01/17/23 17:40: Blood Type A POSITIVE, Antibody Screen NEGATIVE 01/17/23 17:40: Crossmatch See Detail 01/18/23 04:09: PT 33.9 H, INR 3.4 01/18/23 04:09: Sodium 135 L, Potassium 4.6, Chloride 98, Carbon Dioxide 26.0, Anion Gap 11, BUN 76 H, Creatinine 8.14 H*, Estim Creat Clear Calc 7.56, Est GFR(MDRD) Af Amer 8 L, Est GFR (MDRD) Non-Af 7 L, BUN/Creatinine Ratio 9.3 L, Glucose 100, Calcium 8.8 01/18/23 04:09: Hgb 9.2 L Micro: Microbiology 01/18/23 00:21 Stool Stool Occult Blood (SANDRA) - Final Occult Blood Positive Physical Exam Narrative General: Alert, oriented, no apparent distress HEENT: Atraumatic, normocephalic Eyes: Anicteric, normal conjunctiva, extraocular movements grossly intact Neck: Supple Respiratory: Clear to auscultation bilaterally, normal respiratory effort Cardiovascular: Regular rate and rhythm GI: Soft, nontender, nondistended Extremities: No edema Musculoskeletal: Moving all extremities Neuro: No overt focal neurological deficits Skin: No rashes appreciated Psych: Cooperative Assessment & Plan Assessment/Plan (1) GI bleed: PLAN: Plan #Acute blood loss anemia/acute on chronic anemia requiring blood transfusion secondary to GI bleed -Hemoglobin history of 6.8 requiring units of packed red blood cells with hemoglobin this a.m. of 9.2 -Placed on octreotide drip and PPI drip and it was recommended to hold anticoagulation -FOBT was positive -Status post endoscopy with Dr. Zheng / which showed red blood in the gastricbody, portal hypertensive gastropathy and a single bleeding angiodysplastic lesion in the stomach which was treated with a heater probe. Was recommended for full liquid diet to continue current medications -On Coumadin at home for mechanical aortic valve with an INR 3.4 this a.m., continue to trend INR. Coumadin has been on hold due to GI bleed -Remains on PPI and octreotide drips #Mechanical aortic valve replacement/history of mitral valve repair -Mechanical aortic valve is a 21 mm [place] -Mitral valve repair #28 Brady #Atrial fibrillation status post AV chiquita ablation -Has permanent pacemaker -Currently in sinus rhythm #End-stage renal disease on dialysis -Nephrology consulted -Continue midodrine 3 times daily #Heart failure with preserved ejection fraction -Echo 12/06/2022 with stage II diastolic dysfunction -Follows with Dr. Grullon on an outpatient basis -Monitor respiratory and fluid status -Daily weights #Cirrhosis secondary to [place] -Liver enzymes mildly elevated -We will trend CMP -Continue rifaximin #Hypothyroidism -Continue Synthroid #Lymphoma #DVT ppx: Is therapeutic on Coumadin, will add SCDs Mimi Centeno MD Time spent in the patient's overall evaluation,decision-making process, review of diagnostic data, adjustment of management, discussion with other providers, nursing nursing and ancillary staff involved in patient's care documentation, 30minutes Charges/Coding Visit Charges Inpatient E&M: 34558 Subs Hosp L2 01/18/23 1631 <Electronically signed by Mimi Centeno MD> Cosigner Signature (if applicable): CC: ~ Signed ADDENDUM by Dr. Mimi Centeno MD on 01/18/23 at [address] Zheng, will DC octreotide, change PPI to oral, also requested 1 unit packed red blood cells and to hold an anticoagulation today and can consider resumption tomorrow. 01/18/23 1650<Electronically signed by Mimi Centeno MD> Cosigner Signature (if applicable): cc: ~* Signed [facility] Work Phone: 1(594) 794-582003-02-2023 Consult note Author Kody Zheng [facility] January 18, 2023 11:55am Note Date/Time January 18, 2023 11:5 5am [facility] Medical Records Department [address] [place] [address] Consultation - GI 01/17/23 2330 MR#: [id number] Acct: [id number] Name: CHRISTIAN AMADOR Rep #:[id number] : 1950 72 From: Kody Zheng DO PCP: Dr. Castro Ferrara, DO Status:ADM IN Location: [place] [id number]- HPI Consult Data Date of Consult: 01/17/23 HPI Narrative Reason for Consultation: Anemia HPI Narrative: CHRISTIAN AMADOR, is a 72 M who presents?72 M who presents for the evaluation of worsening anemia.? He is known to the GI service.? I saw him previously for diagnosis of anemia.? H He gets his dialysis on Sunday, , Sunday.? She states that typically after dialysis he does not do much for the rest of theday and feels generally weak.? The patient today seems to be a little bit weakerper the he is not really communicating with her very well but he is awake.? ?He has a history of visual disorder but is not having seizures.? Patient's wifenotes that his blood pressure's were low at dialysis today, and she states they did not discontinue dialysis even though his pressures were low.? She states that the blood pressures were as low as 84/35.? She does recall that his systolic pressures usually about 115 and that they try to keep his blood pressure low because of his prosthetic heart valve which has been replaced twice.? ?He is on Coumadin and she states that he has been having trouble getting it to a therapeutic range.? Patient has not complained of chest pain or shortness of breath.? Has not had a fever.? He has not had nausea or vomiting.? The patient'swife does state that he looks a little bit more jaundiced than usual.? He has a history of liver failure and sees a specialist at [facility].? He is on lactulose for a very long time but his states now he is on Xifaxan.? There is been no medication changes.? She states that the patient has had a UTI in the past and he still makes urine 3 times a day.? He has not complained of dysuria or urinary frequency.? He has a history of end-stage renal disease and gets dialysis on Sunday and Sunday. He was discovered to have a hemoglobin of 7.5.? His INR was discovered to be 3.4.? His hemoglobin usually ranges between 10 and 11.? I was consulted to see him due to worsening anemia and history of cirrhosis.?? Previous consultation when I saw him was for lower GI bleeding and altered mental status.? His hemoglobin improved and he followed up with his outside computer engineer. [facility] Medical History Abnormal results of thyroid function studies Airway intubation performed without difficulty Anemia in chronic kidney disease Atherosclerotic heart disease of match-e-be-n[place]she-wish band coronary artery without angina pectoris Atrial flutter Bacterial endocarditis Benign essential hypertension Biventricular cardiac pacemaker in situ (~05/26/16) CAD (coronary artery disease) Cardiomyopathy in disease classified elsewhere Cardiopulmonary arrest with successful resuscitation Cirrhosis CKD stage G5/A1, GFR <15 and albumin creatinine ratio <30 mg/g Coagulopathy COVID-19 Diffuse large b-cell lymphoma, extranodal and solid organ sites Dyspnea Encounter for long-term (current) use of high-risk medication Endocarditis due to Staphylococcus Epilepsy ESRD (end stage renal disease) on dialysis Gout History of diffuse large B-cell lymphoma History of DVT (deep vein thrombosis) History of non-Hodgkin's lymphoma History of pacemaker History of rheumatic fever as a child HLD (hyperlipidemia) Hyperthyroidism Hypothyroidism (acquired) Infectious endocarditis 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 Mild cognitive impairment MRSA (methicillin resistant Staphylococcus aureus) infection Non-rheumatic mitral regurgitation Non-rheumatic mitral valve stenosis Non-ST elevation (NSTEMI) myocardial infarction MIA (obstructive sleep apnea) Other specified cardiac dysrhythmias Paroxysmal ventricular tachycardia Polyneuropathy Pure hypercholesterolemia Rheumatic aortic stenosis Rheumatic mitral insufficiency Sepsis TIA (transient ischemic attack) (~11/19/15) Vitamin D insufficiency Home Medications tamsulosin 0.4 mg capsule 0.4 mg PO DINNER prostate 05/19/21 [History Last Taken 01/09/22] levothyroxine 75 mcg tablet 75 mcg PO DAILY thyroid 08/24/21 [History Last Taken 01/10/22] rifaximin 550 mg tablet (Xifaxan) 550 mg PO BID diarrhea 01/10/22 [History Last Taken 01/09/22] vitamin B complex-vitamin C-folic acid 0.8 mg tablet (Nephro-Baltazar) 1 tab PO DAILY vitamin 01/10/22 [History Last Taken 01/09/22] alprazolam 1 mg tablet (Xanax) 0.5 mg PO QHS Sleep 02/01/22 [History Last Taken Unknown] isosorbide mononitrate 30 mg tablet,extended release 24 hr 30 mg PO DAILY Check with primary doctor 07/15/22 [History Last Taken Unknown] levetiracetam 250 mg tablet 250 mg PO BID #60 tabs 10/16/22 [Rx Last Taken Unknown] pantoprazole 40 mg tablet,delayed release 40 mg PO QAM #90 tabs 10/16/22 [Rx Last Taken Unknown] cyclobenzaprine 10 mg tablet 10 mg PO BID PRN PRN Muscle Pain 11/27/22 [History Last Taken Unknown] doxycycline hyclate 100 mg tablet 100 mg PO BID 11/27/22 [History Last Taken Unknown] fluconazole 200 mg tablet (Diflucan) 200 mg PO DAILY 11/27/22 [History Last Taken Unknown] isosorbide mononitrate 30 mg tablet,extended release 24 hr 30 mg PO DAILY 11/27/22 [History Last Taken Unknown] warfarin 1 mg tablet 1.5 mg PO QWEEK 01/17/23 [History Last Taken Unknown] warfarin 3 mg tablet 3 mg PO DAILY 01/17/23 [History Last Taken Unknown] Allergy/AdvReac Type Severity Reaction Status Date / Time No Known Allergies Allergy Verified 01/17/23 16:27 Family History Father CAD (coronary artery disease) CABG Brother CAD (coronary artery disease) CABG Mother Diabetes Sister Breast cancer Diabetes Sister Cancer breast Diabetes Surgical History dual chamber pacemaker implantation (~10/2010) History of aortic valve replacement (~08/2003) History of appendectomy History of atrioventricular chiquita ablation History of cholecystectomy History of evacuation of hematoma History of heart valve replacement with mechanical valve History of heart valve replacement with mechanical valve History of mechanical aortic valve replacement (~1986) History of mechanical aortic valve replacement (~08/24/03) History of mitral valve repair (~08/24/03) Social History household members: spouse housing: house current occupational status: retired current occupational exposures/hazards: No history of recent travel: No Smoking Status: Never smoker alcohol intake: never substance use type: does not use caffeine: No what type of physical activity do you participate in: weight training and otherdetails: Nustep frequency: 3-4 times per week duration: 45-60 minutes/day seatbelt use: always do you feel safe at home: Yes ROS Constitutional Constitutional: Denies chills or fever(s) Eyes Eyes: Denies loss of vision ENT HEENT: Denies nasal congestion Cardiovascular Cardiovascular: Denies chest pain, dyspnea on exertion or edema Respiratory/Chest Respiratory/Chest: Denies dyspnea on exertion, hemoptysis or productive cough Gastrointestinal Gastrointestinal: Denies abdominal pain, anorexia, hematemesis, hematochezia, melena or nausea Genitourinary Genitourinary: Denies change in urinary stream Musculoskeletal Musculoskeletal: Reports other Details: generalized weakness Psychiatric Psychiatric: Denies anxiety or confusion Endocrine Endocrinology: Reports fatigue Hematologic/Lymphatic Hematologic/Lymphatic: Reports easy bleeding and easy bruising Physical Exam Const alert and oriented x3 Constitutional Narrative: at bedside General Appearance: well developed Resp Auscultation: crackles left Cardio regular rate Cardio Narrative: paced GI non-tender and non-distended Auscultation: normoactive bowel sounds Palpation: soft Back/Spine normal ROM Extremity full ROM Skin no rashes or lesions noted and no wounds Neuro CN's II-XII intact bilaterally Sensorium / Orientation: awake and alert Psych cooperative Lab / Micro Data Result Diagrams: 01/18/23 04:09 01/18/23 04:09 Labs: Laboratory Results - last 24 hr 01/17/23 17:40: WBC 7.0, RBC 2.14 L, Hgb 6.8 L, Hct 22.2 L, MCV 103.7 H, MCH 31.8, MCHC 30.6 L, RDW Std Deviation 62.4 H, RDW Coeff of Jennifer 16.6 H, Plt Count 235, MPV 9.0, Immature Gran % (Auto) 0.600, Neut % (Auto) 61.7, Lymph % (Auto) 18.1 L, Ingham % (Auto) 12.9 H, Eos % (Auto) 6.0 H, Baso % (Auto) 0.7, Absolute Neuts (auto) 4.3, Absolute Lymphs (auto) 1.26, Nucleated RBC % 0 01/17/23 17:40: PT 35.8 H, INR 3.6 01/17/23 17:40: Sodium 137, Potassium 4.0, Chloride 98, Carbon Dioxide 30.0, Anion Gap 9, BUN 67 H, Creatinine 7.67 H*, Estim Creat Clear Calc 8.02, Est GFR (MDRD) Af Amer 9 L, Est GFR (MDRD) Non-Af 7 L, BUN/Creatinine Ratio 8.7 L, Glucose 120 H, Calcium 9.2, Total Bilirubin 0.80, AST 72 H, ALT 71 H, Alkaline Phosphatase 481 H, Total Protein 8.0, Albumin 3.2, Globulin 4.8 H, Albumin/Globulin Ratio 0.7 L 01/17/23 17:40: Blood Type A POSITIVE, Antibody Screen NEGATIVE 01/17/23 17:40: Crossmatch See Detail 01/18/23 04:09: PT 33.9 H, INR 3.4 01/18/23 04:09: Sodium 135 L, Potassium 4.6, Chloride 98, Carbon Dioxide 26.0, Anion Gap 11, BUN 76 H, Creatinine 8.14 H*, Estim Creat Clear Calc 7.56, Est GFR(MDRD) Af Amer 8 L, Est GFR (MDRD) Non-Af 7 L, BUN/Creatinine Ratio 9.3 L, Glucose 100, Calcium 8.8 01/18/23 04:09: Hgb 9.2 L Micro: Microbiology 01/18/23 00:21 Stool Stool Occult Blood (SANDRA) - Final Occult Blood Positive Assessment & Plan Assessment/Plan (1) GI bleed: PLAN: Differential diagnosis for acute blood loss anemia would be GI bleed secondary to portal gastropathy from a supratherapeutic INR, gastric esophageal varices or duodenal varices, angiodysplasia, gastric antral vascular ectasia, peptic ulcer disease secondary to cirrhosis. Patient undergoing upper endoscopyto evaluate his upper GI tract. He is INR supratherapeutic. Recommend to hold anticoagulation. Also his potassium is elevated 5.9 recommend Kayexalate and evaluation for hemodialysis. Recommend PPI drip and octreotide along with ceftriaxone 1 g IV every 24 hours. (2) Cirrhosis: PLAN: As per the family he has a history of nonalcoholic steatohepatitis resulting in cirrhosis. He was mildly encephalopathic which is improved. He isnot significantly more jaundiced than he previously was on last admission when Isaw him. His current meld is 12 and he is a child [place] C. That makes him very high risk for any procedures. However if his hemoglobin continues to be down after transfusion and correction of his INR he will likely need emergent endoscopy with the caveat that he carries a high morbidity and mortality. Charges/Coding Visit Charges Inpatient E&M: 88954 Init Hosp L3 01/18/23 1155 <Electronically signed by Kody Zheng DO> Cosigner Signature (if applicable): CC: Dr. Sharron Calderon DO; Dr. Karthikeyan Rothman MD; Dr. Castro Ferrara DO; Kody Zheng DO~ Signed [facility] Work Phone: 1(887) 545-844403-02-2023 Procedure [facility] 01-18-2023 Procedure [facility]03-02-2023 History and physical note Author Dr. Rothman [facility] January 18, 2023 5:12am Note Date/Time January 17, 2023 9:38 pm [facility] Medical Records Department [address] [place] [address] H&P Exam - Hospitalist 01/17/238 MR#: [id number] Acct: [id number] Name: CHRISTINA AMADOR Rep #:[id number] : 1950 72 From: Karthikeyan Rothman MD PCP: Dr. Castro Ferrara, DO Status:ADM IN Location: [facility] [id number] HPI - General General Date of Admission: 01/17/23 Date of Service: 01/17/23 Chief Complaint: Anemia HPI Narrative CHRISTIAN AMADOR, is a 72 M with a significant history of liver cirrhosis; end- stage renal disease on dialysis; lymphoma; prior history of GI bleed; and mechanical aortic valve who presents to emergency department with anemia. On the same day of presentation ordered hemoglobin by his lokie driver returned as 7.4 (? 7.5) patient was notified by his GI office, Dr. Zheng's office to come to the emergency department as patient may need to be admitted for a scope. The patient reports fatigue ongoing for a while and that has not changed. He reports shortness of breath going for a while that has not changed. Emergency department doctor reported that patient refused rectal examination at the emergency department since the plan is for him to have a scope. [facility] Medical History Abnormal results of thyroid function studies Airway intubation performed without difficulty Anemia in chronic kidney disease Atherosclerotic heart disease of [place] coronary artery without angina pectoris Atrial flutter Bacterial endocarditis Benign essential hypertension Biventricular cardiac pacemaker in situ (~05/26/16) CAD (coronary artery disease) Cardiomyopathy in disease classified elsewhere Cardiopulmonary arrest with successful resuscitation Cirrhosis CKD stage G5/A1, GFR <15 and albumin creatinine ratio <30 mg/g Coagulopathy COVID-19 Diffuse large b-cell lymphoma, extranodal and solid organ sites Dyspnea Encounter for long-term (current) use of high-risk medication Endocarditis due to Staphylococcus Epilepsy ESRD (end stage renal disease) on dialysis Gout History of diffuse large B-cell lymphoma History of DVT (deep vein thrombosis) History of non-Hodgkin's lymphoma History of pacemaker History of rheumatic fever as a child HLD (hyperlipidemia) Hyperthyroidism Hypothyroidism (acquired) Infectious endocarditis 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 Mild cognitive impairment MRSA (methicillin resistant Staphylococcus aureus) infection Non-rheumatic mitral regurgitation Non-rheumatic mitral valve stenosis Non-ST elevation (NSTEMI) myocardial infarction MIA (obstructive sleep apnea) Other specified cardiac dysrhythmias Paroxysmal ventricular tachycardia Polyneuropathy Pure hypercholesterolemia Rheumatic aortic stenosis Rheumatic mitral insufficiency Sepsis TIA (transient ischemic attack) (~11/19/15) Vitamin D insufficiency Home Medications tamsulosin 0.4 mg capsule 0.4 mg PO DINNER prostate 05/19/21 [History Last Taken 01/09/22] levothyroxine 75 mcg tablet 75 mcg PO DAILY thyroid 08/24/21 [History Last Taken 01/10/22] rifaximin 550 mg tablet (Xifaxan) 550 mg PO BID diarrhea 01/10/22 [History Last Taken 01/09/22] vitamin B complex-vitamin C-folic acid 0.8 mg tablet (Nephro-Baltazar) 1 tab PO DAILY vitamin 01/10/22 [History Last Taken 01/09/22] alprazolam 1 mg tablet (Xanax) 0.5 mg PO QHS Sleep 02/01/22 [History Last Taken Unknown] isosorbide mononitrate 30 mg tablet,extended release 24 hr 30 mg PO DAILY Check with primary doctor 07/15/22 [History Last Taken Unknown] levetiracetam 250 mg tablet 250 mg PO BID #60 tabs 10/16/22 [Rx Last Taken Unknown] pantoprazole 40 mg tablet,delayed release 40 mg PO QAM #90 tabs 10/16/22 [Rx Last Taken Unknown] cyclobenzaprine 10 mg tablet 10 mg PO BID PRN PRN Muscle Pain 11/27/22 [History Last Taken Unknown] doxycycline hyclate 100 mg tablet 100 mg PO BID 11/27/22 [History Last Taken Unknown] fluconazole 200 mg tablet (Diflucan) 200 mg PO DAILY 11/27/22 [History Last Taken Unknown] isosorbide mononitrate 30 mg tablet,extended release 24 hr 30 mg PO DAILY 11/27/22 [History Last Taken Unknown] warfarin 1 mg tablet 1.5 mg PO QWEEK 01/17/23 [History Last Taken Unknown] warfarin 3 mg tablet 3 mg PO DAILY 01/17/23 [History Last Taken Unknown] Allergy/AdvReac Type Severity Reaction Status Date / Time No Known Allergies Allergy Verified 01/17/23 16:27 Family History Father CAD (coronary artery disease) CABG Brother CAD (coronary artery disease) CABG Mother Diabetes Sister Breast cancer Diabetes Sister Cancer breast Diabetes Surgical History dual chamber pacemaker implantation (~10/2010) History of aortic valve replacement (~08/2003) History of appendectomy History of atrioventricular chiquita ablation History of cholecystectomy History of evacuation of hematoma History of heart valve replacement with mechanical valve History of heart valve replacement with mechanical valve History of mechanical aortic valve replacement (~1986) History of mechanical aortic valve replacement (~08/24/03) History of mitral valve repair (~08/24/03) Social History household members: spouse housing: house current occupational status: retired current occupational exposures/hazards: No history of recent travel: No Smoking Status: Never smoker alcohol intake: never substance use type: does not use caffeine: No what type of physical activity do you participate in: weight training and otherdetails: Nustep frequency: 3-4 times per week duration: 45-60 minutes/day seatbelt use: always do you feel safe at home: Yes ROS ROS Narrative Pertinent positives and pertinent negatives as noted in HPI. All other systems were reviewed and are negative Vital Signs Vital Signs Vital Signs: 01/17/23 16:23 01/17/23 17:51 01/17/23 18:51 Temperature 97.8 F Temperature Source Temporal Pulse Rate 74 Pulse Rate [Lying] 71 Pulse Rate [Sitting (for 1 minute prior to obtaining)] Pulse Rate [Standing (for 1 minute prior to obtaining)] Respiratory Rate 16 Respiratory Effort Normal Non-Labored Respiratory Pattern Normal Blood Pressure 102/48 L Blood Pressure [Lying] 106/49 L Blood Pressure [Sitting (for 1 minute prior to obtaining)] Blood Pressure [Standing (for 1 minute prior to obtaining)] Blood Pressure Mean 66 Blood Pressure Mean [Lying] 68 Blood Pressure Mean [Sitting (for 1 minute prior to obtaining)] Blood Pressure Mean [Standing (for 1 minute prior to obtaining)] Pulse Ox 100 Oxygen Delivery Method Room Air 01/17/23 18:57 01/17/23 18:59 01/17/23 19:36 Temperature 97.9 F Temperature Source Temporal Pulse Rate 70 Pulse Rate [Lying] Pulse Rate [Sitting (for 1 minute prior to obtaining)] 71 Pulse Rate [Standing (for 1 minute prior to obtaining)] 71 Respiratory Rate 16 Respiratory Effort Respiratory Pattern Blood Pressure 103/50 L Blood Pressure [Lying] Blood Pressure [Sitting (for 1 minute prior to obtaining)] 105/47 L Blood Pressure [Standing (for 1 minute prior to obtaining)] 97/47 L Blood Pressure Mean 67 Blood Pressure Mean [Lying] Blood Pressure Mean [Sitting (for 1 minute prior to obtaining)] 66 Blood Pressure Mean [Standing (for 1 minute prior to obtaining)] 63 Pulse Ox 98 Oxygen Delivery Method Room Air 01/17/23 19:51 01/17/23 20:34 Temperature 97.6 F L Temperature Source Temporal Pulse Rate 70 70 Pulse Rate [Lying] Pulse Rate [Sitting (for 1 minute prior to obtaining)] Pulse Rate [Standing (for 1 minute prior to obtaining)] Respiratory Rate 16 20 H Respiratory Effort Respiratory Pattern Blood Pressure 95/47 L 100/45 L Blood Pressure [Lying] Blood Pressure [Sitting (for 1 minute prior to obtaining)] Blood Pressure [Standing (for 1 minute prior to obtaining)] Blood Pressure Mean 63 63 Blood Pressure Mean [Lying] Blood Pressure Mean [Sitting (for 1 minute prior to obtaining)] Blood Pressure Mean [Standing (for 1 minute prior to obtaining)] Pulse Ox 98 100 Oxygen Delivery Method Room Air Room Air Weight Weight: 78.103 kg Body Mass Index (BMI) 26.9 Physical Exam Narrative Physical exam: General: Well-nourished, well-developed. Head: Normocephalic, atraumatic, no tenderness Eyes: Vision is grossly intact. EOMI ENT, no trauma, moist mucous membranes, no rhinorrhea Neck: Nontender, No thyromegaly. CVS: Regular rate and rhythm. Mechanical click heart sound. Respiratory : clear to auscultation bilaterally, chest wall nontender, no wheezing Abdomen: Soft, nontender, nondistended, normal bowel sounds, no masses : Deferred Back: Nontender, no CVA tenderness, no midline spinal tenderness, deformities, step-offs Extremities: Nontender full range of motion, no trauma Skin: Normal color, no trauma, abrasions Neuro: Alert, oriented, cranial nerves II through XII grossly intact. Psychiatry: Normal mood. Normal affect. Not depressed. Not anxious. Results Lab / Micro Data Attestation: I reviewed the patient's lab results. Result Diagrams: 01/18/23 04:09 01/17/23 17:40 Labs: Laboratory Results - last 24 hr 01/17/23 17:40: WBC 7.0, RBC 2.14 L, Hgb 6.8 L, Hct 22.2 L, MCV 103.7 H, MCH 31.8, MCHC 30.6 L, RDW Std Deviation 62.4 H, RDW Coeff of Jennifer 16.6 H, Plt Count 235, MPV 9.0, Immature Gran % (Auto) 0.600, Neut % (Auto) 61.7, Lymph % (Auto) 18.1 L, Ingham % (Auto) 12.9 H, Eos % (Auto) 6.0 H, Baso % (Auto) 0.7, Absolute Neuts (auto) 4.3, Absolute Lymphs (auto) 1.26, Nucleated RBC % 0 01/17/23 17:40: PT 35.8 H, INR 3.6 01/17/23 17:40: Sodium 137, Potassium 4.0, Chloride 98, Carbon Dioxide 30.0, Anion Gap 9, BUN 67 H, Creatinine 7.67 H*, Estim Creat Clear Calc 8.02, Est GFR (MDRD) Af Amer 9 L, Est GFR (MDRD) Non-Af 7 L, BUN/Creatinine Ratio 8.7 L, Glucose 120 H, Calcium 9.2, Total Bilirubin 0.80, AST 72 H, ALT 71 H, Alkaline Phosphatase 481 H, Total Protein 8.0, Albumin 3.2, Globulin 4.8 H, Albumin/Globulin Ratio 0.7 L 01/17/23 17:40: Blood Type A POSITIVE, Antibody Screen NEGATIVE 01/17/23 17:40: Crossmatch See Detail Assessment & Plan Assessment/Plan (1) Anemia requiring transfusions: (2) ABLA (acute blood loss anemia): PLAN: Plan Acute on chronic anemia requiring blood transfusion secondary to acute blood loss anemia. Fecal occult blood test ordered at the [facility] returned positive. Hemoglobin presentation was 6.8. Hemoglobin earlier on on the same day of presentation was 7.5. Baseline hemoglobin is from 10-12. EGD on 07/17/2022 showed portal hypertensive gastropathy. Biopsies were done. Gastric antral vascular ectasia with bleeding. He had treatment with argon plasma coagulation. Also he had duodenitis. 2 units of packed red blood cells was ordered emergency department to be transfused. Check H&H 1 hour after second liter of blood has been transfused. Hold Coumadin. GI consult. N.p.o. after midnight. With hypotension after 2 units of blood has been given octreotide IV bolus and drip ordered. Hypotension Likely secondary to anemia With 2 units of blood patient systolic blood pressure was less than 90 with MAP of 55. 250 mL of normal saline bolus given. Midodrine ordered. Octreotide ordered. Hold home blood pressure medications. Trend blood pressures. Aortic valve replacement with supratherapeutic INR INR on presentation was 3.6. Trend. End-stage renal disease on dialysis Renal diet Nephrology consult DVT prophylaxis Not indicated as patient is supratherapeutic on INR. Charges/Coding Visit Charges Inpatient E&M: 74419 Init Hosp L3 01/18/23 0512 <Electronically signed by Karthikeyan Rothman MD> Cosigner Signature (if applicable): CC: Dr. Karthikeyan Rothman MD; Dr. Castro Ferrara DO~ Signed [facility] Work Phone: 1(875) 842-336703-01-[address] Garrison [facility] January 17, 2023 9:34pm Note Date/Time January 17, 2023 5:24 pm [facility] Medical Records Department [address] [place] [id number] Emergency Department Summary 01/17/23 MR#: [id number] Acct: [id number] Name: CHRISTIAN AMADOR Rep #:[id number] : 1950 72 From: Claudio Garrison MD PCP: Dr. Castro Ferrara DO Status:REG ER Location: ED HPI History of Present Illness Chief Complaint: Abn Labs Narrative Narrative: 72-year-old male past medical history of aortic valve replacement, mechanical, on Coumadin, pacemaker, cirrhosis of the liver, presents with symptomatic anemia, complaining of shortness of breath, fatigue, but no chest pain. Last year, he did have a small, slow, esophageal bleed, but had a large amount of blood in his stool at that time. He states that Dr. Zheng cauterized it. He presents because of increasing, symptomatic anemia, with decreasing hemoglobin. He denies any bleeding diathesis, no hematemesis, no bright red blood per rectum. 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 They also state that he had lab work today with a hemoglobin of 7.4. He was sent in by gastroenterologybecause he will require scoping. He denies any dizziness or lightheadedness. [facility] Medical History Abnormal results of thyroid function studies Airway intubation performed without difficulty Anemia in chronic kidney disease Atherosclerotic heart disease of [place] coronary artery without angina pectoris Atrial flutter Bacterial endocarditis Benign essential hypertension Biventricular cardiac pacemaker in situ (~05/26/16) CAD (coronary artery disease) Cardiomyopathy in disease classified elsewhere Cardiopulmonary arrest with successful resuscitation Cirrhosis CKD stage G5/A1, GFR <15 and albumin creatinine ratio <30 mg/g Coagulopathy COVID-19 Diffuse large b-cell lymphoma, extranodal and solid organ sites Dyspnea Encounter for long-term (current) use of high-risk medication Endocarditis due to Staphylococcus Epilepsy ESRD (end stage renal disease) on dialysis Gout History of diffuse large B-cell lymphoma History of DVT (deep vein thrombosis) History of non-Hodgkin's lymphoma History of pacemaker History of rheumatic fever as a child HLD (hyperlipidemia) Hyperthyroidism Hypothyroidism (acquired) Infectious endocarditis 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 Mild cognitive impairment MRSA (methicillin resistant Staphylococcus aureus) infection Non-rheumatic mitral regurgitation Non-rheumatic mitral valve stenosis Non-ST elevation (NSTEMI) myocardial infarction MIA (obstructive sleep apnea) Other specified cardiac dysrhythmias Paroxysmal ventricular tachycardia Polyneuropathy Pure hypercholesterolemia Rheumatic aortic stenosis Rheumatic mitral insufficiency Sepsis TIA (transient ischemic attack) (~11/19/15) Vitamin D insufficiency Home Medications tamsulosin 0.4 mg capsule 0.4 mg PO DINNER prostate 05/19/21 [History Last Taken 01/09/22] levothyroxine 75 mcg tablet 75 mcg PO DAILY thyroid 08/24/21 [History Last Taken 01/10/22] rifaximin 550 mg tablet (Xifaxan) 550 mg PO BID diarrhea 01/10/22 [History Last Taken 01/09/22] vitamin B complex-vitamin C-folic acid 0.8 mg tablet (Nephro-Baltazar) 1 tab PO DAILY vitamin 01/10/22 [History Last Taken 01/09/22] alprazolam 1 mg tablet (Xanax) 0.5 mg PO QHS Sleep 02/01/22 [History Last Taken Unknown] isosorbide mononitrate 30 mg tablet,extended release 24 hr 30 mg PO DAILY 07/15/22 [History Last Taken Unknown] warfarin 6 mg tablet 3 mg PO DAILY #45 tabs 07/20/22 [Rx Last Taken Unknown] warfarin 1 mg tablet 1 mg PO .COMPLEX 09/14/22 [History Last Taken Unknown] levetiracetam 250 mg tablet 250 mg PO BID #60 tabs 10/16/22 [Rx Last Taken Unknown] pantoprazole 40 mg tablet,delayed release 40 mg PO QAM #90 tabs 10/16/22 [Rx Last Taken Unknown] cyclobenzaprine 10 mg tablet 10 mg PO DAILY 11/27/22 [History Last Taken Unknown] doxycycline hyclate 100 mg tablet 100 mg PO BID 11/27/22 [History Last Taken Unknown] fluconazole 200 mg tablet (Diflucan) 200 mg PO DAILY 11/27/22 [History Last Taken Unknown] isosorbide mononitrate 30 mg tablet,extended release 24 hr 30 mg PO DAILY 11/27/22 [History Last Taken Unknown] carvedilol 3.125 mg tablet 3.125 mg PO BID #60 tabs 12/11/22 [Rx Last Taken Unknown] warfarin 1 mg tablet 1.5 mg PO QWEEK 01/17/23 [History Last Taken Unknown] warfarin 3 mg tablet 3 mg PO DAILY 01/17/23 [History Last Taken Unknown] Allergy/AdvReac Type Severity Reaction Status Date / Time No Known Allergies Allergy Verified 01/17/23 16:27 Family History Father CAD (coronary artery disease) CABG Brother CAD (coronary artery disease) CABG Mother Diabetes Sister Breast cancer Diabetes Sister Cancer breast Diabetes Surgical History dual chamber pacemaker implantation (~10/2010) History of aortic valve replacement (~08/2003) History of appendectomy History of atrioventricular chiquita ablation History of cholecystectomy History of evacuation of hematoma History of heart valve replacement with mechanical valve History of heart valve replacement with mechanical valve History of mechanical aortic valve replacement (~1986) History of mechanical aortic valve replacement (~08/24/03) History of mitral valve repair (~08/24/03) Social History household members: spouse housing: house current occupational status: retired current occupational exposures/hazards: No history of recent travel: No Smoking Status: Never smoker alcohol intake: never substance use type: does not use caffeine: No what type of physical activity do you participate in: weight training and otherdetails: Nustep frequency: 3-4 times per week duration: 45-60 minutes/day seatbelt use: always do you feel safe at home: Yes ROS ROS ED ROS Narrative Constitutional: No fever, no chills. Positive fatigue. HEENT: No sore throat. No neck pain. No loss of vision. No rhinorrhea. Cardiovascular: No chest pain. No palpitations. No pedal edema. Respiratory: No cough, mild shortness of breath. Abdominal: No abdominal pain. No nausea. No vomiting. No hematemesis. No bright red blood per rectum. Chronically has dark stool secondary to medication. Genitourinary: No dysuria. No hematuria. Musculoskeletal: No myalgias. No arthralgias. Neurologic: No headaches. No dizziness. No lightheadedness. Skin: No rash. No change in color. Psychiatric: No depression. No anxiety. EXAM Physical Exam Narrative Exam Narrative: Afebrile. Vital signs noted. No noted bleeding diathesis. HEENT: Normocephalic. Atraumatic. PERRL, EOMI. Neck soft and supple. No pointtenderness or step off. Cardiovascular: Regular rate and rhythm. No murmurs, rubs, or gallops appreciated. Sound of mechanical heart valve auscultated. Respiratory: No tachypnea. Lungs clear to auscultation bilaterally. Gastrointestinal: Abdomen soft, nontender, with normoactive bowel sounds. No rebound or guarding. Rectal examination deferred/declined by patient. Neurological: Awake. Alert. Nonfocal, nonlateralizing. Skin: No rash. Positive pallor. Musculoskeletal: No pedal edema. Full range of motion extremities. Const Vital Signs: 01/17/23 16:23 01/17/23 17:51 01/17/23 18:51 Temperature 97.8 F Temperature Source Temporal Pulse Rate 74 Pulse Rate [Lying] 71 Pulse Rate [Sitting (for 1 minute prior to obtaining)] Pulse Rate [Standing (for 1 minute prior to obtaining)] Respiratory Rate 16 Respiratory Effort Normal Non-Labored Respiratory Pattern Normal Blood Pressure 102/48 L Blood Pressure [Lying] 106/49 L Blood Pressure [Sitting (for 1 minute prior to obtaining)] Blood Pressure [Standing (for 1 minute prior to obtaining)] Blood Pressure Mean 66 Blood Pressure Mean [Lying] 68 Blood Pressure Mean [Sitting (for 1 minute prior to obtaining)] Blood Pressure Mean [Standing (for 1 minute prior to obtaining)] Pulse Ox 100 Oxygen Delivery Method Room Air 01/17/23 18:57 01/17/23 18:59 01/17/23 19:36 Temperature 97.9 F Temperature Source Temporal Pulse Rate 70 Pulse Rate [Lying] Pulse Rate [Sitting (for 1 minute prior to obtaining)] 71 Pulse Rate [Standing (for 1 minute prior to obtaining)] 71 Respiratory Rate 16 Respiratory Effort Respiratory Pattern Blood Pressure 103/50 L Blood Pressure [Lying] Blood Pressure [Sitting (for 1 minute prior to obtaining)] 105/47 L Blood Pressure [Standing (for 1 minute prior to obtaining)] 97/47 L Blood Pressure Mean 67 Blood Pressure Mean [Lying] Blood Pressure Mean [Sitting (for 1 minute prior to obtaining)] 66 Blood Pressure Mean [Standing (for 1 minute prior to obtaining)] 63 Pulse Ox 98 Oxygen Delivery Method Room Air 01/17/23 19:51 01/17/23 20:34 Temperature 97.6 F L Temperature Source Temporal Pulse Rate 70 70 Pulse Rate [Lying] Pulse Rate [Sitting (for 1 minute prior to obtaining)] Pulse Rate [Standing (for 1 minute prior to obtaining)] Respiratory Rate 16 20 H Respiratory Effort Respiratory Pattern Blood Pressure 95/47 L 100/45 L Blood Pressure [Lying] Blood Pressure [Sitting (for 1 minute prior to obtaining)] Blood Pressure [Standing (for 1 minute prior to obtaining)] Blood Pressure Mean 63 63 Blood Pressure Mean [Lying] Blood Pressure Mean [Sitting (for 1 minute prior to obtaining)] Blood Pressure Mean [Standing (for 1 minute prior to obtaining)] Pulse Ox 98 100 Oxygen Delivery Method Room Air Room Air MDM MDM MDM Narrative Medical decision making narrative: I will obtain new laboratory work including CBC, CMP, INR as he is on Coumadin, and orthostatics with type and screen. As he is going to be scoped by gastroenterology, rectal examination has been deferred and declined by the patient. I will review his laboratory work and speak with the hospitalist regarding admission for endoscopy by gastroenterology. Comprehensive work-up was pursued. EKG was obtained and interpreted which showsa ventricular paced rhythm at [address] changes. I reviewed his CBC which shows a normal white count of 7.0, hemoglobin low at 6.8, hematocrit 22.2. He had initially been typed and screened, but type and crossmatch for transfusion of 2 units was entered. He has normal platelet count of 235. INR shows elevated value at 3.6, but he does have a mechanical heart valve. In review of his CMP, he has a normal sodium of 137, potassium normal at 4.0, BUN is elevated at 67 with a creatinine of 7.67 consistent with his end-stage renal disease. Glucose is elevated at 120 with a normal anion gap of 9. AST and ALT are elevated at 72 and 71 respectively. At this point in time, given his anemia requiring transfusion, symptomatic anemia, and coagulopathy secondary to Coumadin, patient was discussed with the hospitalist, Dr. Rothman, for admission to [facility] for gastroenterology consultation for endoscopy. Prior to admission he was administered an IV bolus of Protonix of 40 mg. Patient is in stable condition. History & Record Review Discussion w/independent historian: Patient and Significant other Additional record(s) reviewed:: Prior labs Lab Data Attestation: I reviewed the patient's lab results. Labs: Laboratory Results - last 24 hr 01/17/23 01/17/23 01/17/23 17:40 17:40 17:40 WBC 7.0 RBC 2.14 L Hgb 6.8 L Hct 22.2 L MCV 103.7 H MCH 31.8 MCHC 30.6 L RDW Std Deviation 62.4 H RDW Coeff of Jennifer 16.6 H Plt Count 235 MPV 9.0 Immature Gran % (Auto) 0.600 Neut % (Auto) 61.7 Lymph % (Auto) 18.1 L Ingham % (Auto) 12.9 H Eos % (Auto) 6.0 H Baso % (Auto) 0.7 Absolute Neuts (auto) 4.3 Absolute Lymphs (auto) 1.26 Nucleated RBC % 0 PT 35.8 H INR 3.6 Sodium 137 Potassium 4.0 Chloride 98 Carbon Dioxide 30.0 Anion Gap 9 BUN 67 H Creatinine 7.67 H* Estim Creat Clear Calc 8.02 Est GFR (MDRD) Af Amer 9 L Est GFR (MDRD) Non-Af 7 L BUN/Creatinine Ratio 8.7 L Glucose 120 H Calcium 9.2 Total Bilirubin 0.80 AST 72 H ALT 71 H Alkaline Phosphatase 481 H Total Protein 8.0 Albumin 3.2 Globulin 4.8 H Albumin/Globulin Ratio 0.7 L Blood Type Antibody Screen Crossmatch 01/17/23 01/17/23 17:40 17:40 WBC RBC Hgb Hct MCV MCH MCHC RDW Std Deviation RDW Coeff of Jennifer Plt Count MPV Immature Gran % (Auto) Neut % (Auto) Lymph % (Auto) Ingham % (Auto) Eos % (Auto) Baso % (Auto) Absolute Neuts (auto) Absolute Lymphs (auto) Nucleated RBC % PT INR Sodium Potassium Chloride Carbon Dioxide Anion Gap BUN Creatinine Estim Creat Clear Calc Est GFR (MDRD) Af Amer Est GFR (MDRD) Non-Af BUN/Creatinine Ratio Glucose Calcium Total Bilirubin AST ALT Alkaline Phosphatase Total Protein Albumin Globulin Albumin/Globulin Ratio Blood Type A POSITIVE Antibody Screen NEGATIVE Crossmatch See Detail Discharge Plan Dx/Rx/DC Orders Clinical Impression: Anemia requiring transfusions, intermediate (current) use of 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, Symptomatic anemia, ESRD (end stage renal disease) on dialysis Disposition Disposition: Acute Care [facility] What to do if you have Problems For any increased pain, shortness of breath, bleeding, nausea or vomiting, chestpain, or any unexpected problems, contact your Primary Care Provider. Call [facility] ([phone]) or report to the closest Emergency Room. Call 911 if necessary. 01/17/232133 <Electronically signed by Claudio Garrison MD> Cosigner Signature (if applicable): CC: Dr. Castro Ferrara, ~ Signed [facility] Work Phone: [phone]) 873-138903-01-[address] Garrison [facility] January 17, 2023 9:34pm Note Date/Time January 17, 2023 5:24 pm [facility] Medical Records Department [address] [place] [address] Emergency Department Summary 01/17/23 MR#: [id number] Acct: [id number] Name: CHRISTIAN AMADOR Rep #:[id number] : 1950 72 From: Claudio Garrison MD PCP: Dr. Castro Ferrara DO Status:REG ER Location: ED HPI History of Present Illness Chief Complaint: Abn Labs Narrative Narrative: 72-year-old male past medical history of aortic valve replacement, mechanical, on Coumadin, pacemaker, cirrhosis of the liver, presents with symptomatic anemia, complaining of shortness of breath, fatigue, but no chest pain. Last year, he did have a small, slow, esophageal bleed, but had a large amount of blood in his stool at that time. He states that Dr. Zheng cauterized it. He presents because of increasing, symptomatic anemia, with decreasing hemoglobin. He denies any bleeding diathesis, no hematemesis, no bright red blood per rectum. 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 They also state that he had lab work today with a hemoglobin of 7.4. He was sent in by gastroenterologybecause he will require scoping. He denies any dizziness or lightheadedness. [facility] Medical History Abnormal results of thyroid function studies Airway intubation performed without difficulty Anemia in chronic kidney disease Atherosclerotic heart disease of [place] coronary artery without angina pectoris Atrial flutter Bacterial endocarditis Benign essential hypertension Biventricular cardiac pacemaker in situ (~05/26/16) CAD (coronary artery disease) Cardiomyopathy in disease classified elsewhere Cardiopulmonary arrest with successful resuscitation Cirrhosis CKD stage G5/A1, GFR <15 and albumin creatinine ratio <30 mg/g Coagulopathy COVID-19 Diffuse large b-cell lymphoma, extranodal and solid organ sites Dyspnea Encounter for long-term (current) use of high-risk medication Endocarditis due to Staphylococcus Epilepsy ESRD (end stage renal disease) on dialysis Gout History of diffuse large B-cell lymphoma History of DVT (deep vein thrombosis) History of non-Hodgkin's lymphoma History of pacemaker History of rheumatic fever as a child HLD (hyperlipidemia) Hyperthyroidism Hypothyroidism (acquired) Infectious endocarditis Iron deficiency intermediate (current) use of 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 Mild cognitive impairment MRSA (methicillin resistant Staphylococcus aureus) infection Non-rheumatic mitral regurgitation Non-rheumatic mitral valve stenosis Non-ST elevation (NSTEMI) myocardial infarction MIA (obstructive sleep apnea) Other specified cardiac dysrhythmias Paroxysmal ventricular tachycardia Polyneuropathy Pure hypercholesterolemia Rheumatic aortic stenosis Rheumatic mitral insufficiency Sepsis TIA (transient ischemic attack) (~11/19/15) Vitamin D insufficiency Home Medications tamsulosin 0.4 mg capsule 0.4 mg PO DINNER prostate 05/19/21 [History Last Taken 01/09/22] levothyroxine 75 mcg tablet 75 mcg PO DAILY thyroid 08/24/21 [History Last Taken 01/10/22] rifaximin 550 mg tablet (Xifaxan) 550 mg PO BID diarrhea 01/10/22 [History Last Taken 01/09/22] vitamin B complex-vitamin C-folic acid 0.8 mg tablet (Nephro-Baltazar) 1 tab PO DAILY vitamin 01/10/22 [History Last Taken 01/09/22] alprazolam 1 mg tablet (Xanax) 0.5 mg PO QHS Sleep 02/01/22 [History Last Taken Unknown] isosorbide mononitrate 30 mg tablet,extended release 24 hr 30 mg PO DAILY 07/15/22 [History Last Taken Unknown] warfarin 6 mg tablet 3 mg PO DAILY #45 tabs 07/20/22 [Rx Last Taken Unknown] warfarin 1 mg tablet 1 mg PO .COMPLEX 09/14/22 [History Last Taken Unknown] levetiracetam 250 mg tablet 250 mg PO BID #60 tabs 10/16/22 [Rx Last Taken Unknown] pantoprazole 40 mg tablet,delayed release 40 mg PO QAM #90 tabs 10/16/22 [Rx Last Taken Unknown] cyclobenzaprine 10 mg tablet 10 mg PO DAILY 11/27/22 [History Last Taken Unknown] doxycycline hyclate 100 mg tablet 100 mg PO BID 11/27/22 [History Last Taken Unknown] fluconazole 200 mg tablet (Diflucan) 200 mg PO DAILY 11/27/22 [History Last Taken Unknown] isosorbide mononitrate 30 mg tablet,extended release 24 hr 30 mg PO DAILY 11/27/22 [History Last Taken Unknown] carvedilol 3.125 mg tablet 3.125 mg PO BID #60 tabs 12/11/22 [Rx Last Taken Unknown] warfarin 1 mg tablet 1.5 mg PO QWEEK 01/17/23 [History Last Taken Unknown] warfarin 3 mg tablet 3 mg PO DAILY 01/17/23 [History Last Taken Unknown] Allergy/AdvReac Type Severity Reaction Status Date / Time No Known Allergies Allergy Verified 01/17/23 16:27 Family History Father CAD (coronary artery disease) CABG Brother CAD (coronary artery disease) CABG Mother Diabetes Sister Breast cancer Diabetes Sister Cancer breast Diabetes Surgical History dual chamber pacemaker implantation (~10/2010) History of aortic valve replacement (~08/2003) History of appendectomy History of atrioventricular chiquita ablation History of cholecystectomy History of evacuation of hematoma History of heart valve replacement with mechanical valve History of heart valve replacement with mechanical valve History of mechanical aortic valve replacement (~1986) History of mechanical aortic valve replacement (~08/24/03) History of mitral valve repair (~08/24/03) Social History household members: spouse housing: house current occupational status: retired current occupational exposures/hazards: No history of recent travel: No Smoking Status: Never smoker alcohol intake: never substance use type: does not use caffeine: No what type of physical activity do you participate in: weight training and otherdetails: Nustep frequency: 3-4 times per week duration: 45-60 minutes/day seatbelt use: always do you feel safe at home: Yes ROS ROS ED ROS Narrative Constitutional: No fever, no chills. Positive fatigue. HEENT: No sore throat. No neck pain. No loss of vision. No rhinorrhea. Cardiovascular: No chest pain. No palpitations. No pedal edema. Respiratory: No cough, mild shortness of breath. Abdominal: No abdominal pain. No nausea. No vomiting. No hematemesis. No bright red blood per rectum. Chronically has dark stool secondary to medication. Genitourinary: No dysuria. No hematuria. Musculoskeletal: No myalgias. No arthralgias. Neurologic: No headaches. No dizziness. No lightheadedness. Skin: No rash. No change in color. Psychiatric: No depression. No anxiety. EXAM Physical Exam Narrative Exam Narrative: Afebrile. Vital signs noted. No noted bleeding diathesis. HEENT: Normocephalic. Atraumatic. PERRL, EOMI. Neck soft and supple. No pointtenderness or step off. Cardiovascular: Regular rate and rhythm. No murmurs, rubs, or gallops appreciated. Sound of mechanical heart valve auscultated. Respiratory: No tachypnea. Lungs clear to auscultation bilaterally. Gastrointestinal: Abdomen soft, nontender, with normoactive bowel sounds. No rebound or guarding. Rectal examination deferred/declined by patient. Neurological: Awake. Alert. Nonfocal, nonlateralizing. Skin: No rash. Positive pallor. Musculoskeletal: No pedal edema. Full range of motion extremities. Const Vital Signs: 01/17/23 16:23 01/17/23 17:51 01/17/23 18:51 Temperature 97.8 F Temperature Source Temporal Pulse Rate 74 Pulse Rate [Lying] 71 Pulse Rate [Sitting (for 1 minute prior to obtaining)] Pulse Rate [Standing (for 1 minute prior to obtaining)] Respiratory Rate 16 Respiratory Effort Normal Non-Labored Respiratory Pattern Normal Blood Pressure 102/48 L Blood Pressure [Lying] 106/49 L Blood Pressure [Sitting (for 1 minute prior to obtaining)] Blood Pressure [Standing (for 1 minute prior to obtaining)] Blood Pressure Mean 66 Blood Pressure Mean [Lying] 68 Blood Pressure Mean [Sitting (for 1 minute prior to obtaining)] Blood Pressure Mean [Standing (for 1 minute prior to obtaining)] Pulse Ox 100 Oxygen Delivery Method Room Air 01/17/23 18:57 01/17/23 18:59 01/17/23 19:36 Temperature 97.9 F Temperature Source Temporal Pulse Rate 70 Pulse Rate [Lying] Pulse Rate [Sitting (for 1 minute prior to obtaining)] 71 Pulse Rate [Standing (for 1 minute prior to obtaining)] 71 Respiratory Rate 16 Respiratory Effort Respiratory Pattern Blood Pressure 103/50 L Blood Pressure [Lying] Blood Pressure [Sitting (for 1 minute prior to obtaining)] 105/47 L Blood Pressure [Standing (for 1 minute prior to obtaining)] 97/47 L Blood Pressure Mean 67 Blood Pressure Mean [Lying] Blood Pressure Mean [Sitting (for 1 minute prior to obtaining)] 66 Blood Pressure Mean [Standing (for 1 minute prior to obtaining)] 63 Pulse Ox 98 Oxygen Delivery Method Room Air 01/17/23 19:51 01/17/23 20:34 Temperature 97.6 F L Temperature Source Temporal Pulse Rate 70 70 Pulse Rate [Lying] Pulse Rate [Sitting (for 1 minute prior to obtaining)] Pulse Rate [Standing (for 1 minute prior to obtaining)] Respiratory Rate 16 20 H Respiratory Effort Respiratory Pattern Blood Pressure 95/47 L 100/45 L Blood Pressure [Lying] Blood Pressure [Sitting (for 1 minute prior to obtaining)] Blood Pressure [Standing (for 1 minute prior to obtaining)] Blood Pressure Mean 63 63 Blood Pressure Mean [Lying] Blood Pressure Mean [Sitting (for 1 minute prior to obtaining)] Blood Pressure Mean [Standing (for 1 minute prior to obtaining)] Pulse Ox 98 100 Oxygen Delivery Method Room Air Room Air MDM MDM MDM Narrative Medical decision making narrative: I will obtain new laboratory work including CBC, CMP, INR as he is on Coumadin, and orthostatics with type and screen. As he is going to be scoped by gastroenterology, rectal examination has been deferred and declined by the patient. I will review his laboratory work and speak with the hospitalist regarding admission for endoscopy by gastroenterology. Comprehensive work-up was pursued. EKG was obtained and interpreted which showsa ventricular paced rhythm at [address] changes. I reviewed his CBC which shows a normal white count of 7.0, hemoglobin low at 6.8, hematocrit 22.2. He had initially been typed and screened, but type and crossmatch for transfusion of 2 units was entered. He has normal platelet count of 235. INR shows elevated value at 3.6, but he does have a mechanical heart valve. In review of his CMP, he has a normal sodium of 137, potassium normal at 4.0, BUN is elevated at 67 with a creatinine of 7.67 consistent with his end-stage renal disease. Glucose is elevated at 120 with a normal anion gap of 9. AST and ALT are elevated at 72 and 71 respectively. At this point in time, given his anemia requiring transfusion, symptomatic anemia, and coagulopathy secondary to Coumadin, patient was discussed with the hospitalist, Dr. Rothman, for admission to [facility] for gastroenterology consultation for endoscopy. Prior to admission he was administered an IV bolus of Protonix of 40 mg. Patient is in stable condition. History & Record Review Discussion w/independent historian: Patient and Significant other Additional record(s) reviewed:: Prior labs Lab Data Attestation: I reviewed the patient's lab results. Labs: Laboratory Results - last 24 hr 01/17/23 01/17/23 01/17/23 17:40 17:40 17:40 WBC 7.0 RBC 2.14 L Hgb 6.8 L Hct 22.2 L MCV 103.7 H MCH 31.8 MCHC 30.6 L RDW Std Deviation 62.4 H RDW Coeff of Jennifer 16.6 H Plt Count 235 MPV 9.0 Immature Gran % (Auto) 0.600 Neut % (Auto) 61.7 Lymph % (Auto) 18.1 L Ingham % (Auto) 12.9 H Eos % (Auto) 6.0 H Baso % (Auto) 0.7 Absolute Neuts (auto) 4.3 Absolute Lymphs (auto) 1.26 Nucleated RBC % 0 PT 35.8 H INR 3.6 Sodium 137 Potassium 4.0 Chloride 98 Carbon Dioxide 30.0 Anion Gap 9 BUN 67 H Creatinine 7.67 H* Estim Creat Clear Calc 8.02 Est GFR (MDRD) Af Amer 9 L Est GFR (MDRD) Non-Af 7 L BUN/Creatinine Ratio 8.7 L Glucose 120 H Calcium 9.2 Total Bilirubin 0.80 AST 72 H ALT 71 H Alkaline Phosphatase 481 H Total Protein 8.0 Albumin 3.2 Globulin 4.8 H Albumin/Globulin Ratio 0.7 L Blood Type Antibody Screen Crossmatch 01/17/23 01/17/23 17:40 17:40 WBC RBC Hgb Hct MCV MCH MCHC RDW Std Deviation RDW Coeff of Jennifer Plt Count MPV Immature Gran % (Auto) Neut % (Auto) Lymph % (Auto) Ingham % (Auto) Eos % (Auto) Baso % (Auto) Absolute Neuts (auto) Absolute Lymphs (auto) Nucleated RBC % PT INR Sodium Potassium Chloride Carbon Dioxide Anion Gap BUN Creatinine Estim Creat Clear Calc Est GFR (MDRD) Af Amer Est GFR (MDRD) Non-Af BUN/Creatinine Ratio Glucose Calcium Total Bilirubin AST ALT Alkaline Phosphatase Total Protein Albumin Globulin Albumin/Globulin Ratio Blood Type A POSITIVE Antibody Screen NEGATIVE Crossmatch See Detail Discharge Plan Dx/Rx/DC Orders Clinical Impression: Anemia requiring transfusions, 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 Call [facility] ([phone]) or report to the closest Emergency Room. Call 911 if necessary. 01/17/232133 <Electronically signed by Claudio Garrison MD> Cosigner Signature (if applicable): CC: Dr. Castro Ferrara, DO ~ Signed [facility] Work Phone: [phone] History of Present illness Narrative* Kelby Jayesh Chance, BUSINESS SERVICES SPECIALIST SALES-CUSTOMER ASSISTANT - 01/15/2023 11:30 AM EST Images from the original note were not included. CLINICAL CARE TEAM: -Referring Provider for today's consult: Vinny Atkinson MD -Primary Care Provider: Vinny Atkinson HISTORY OF PRESENT ILLNESS: Christian Amador is a 72 y.o. male who [...] warfarin use and thrombocytopenia, pelvic fractures. He wasnoticed to have increasing hyperbilirubinemia. Per , he was found to have increased LFTs in thepast, referred to Gastroenterology with negative workup, although unclear what was done. No historyof significant alcohol use, no IV drug use or history of hepatitis. No family history of liver disease. Patient also with no other reported liver disease. CT A/P 09/02/21 with left retroperitoneal hemorrhage, no evidence of hemoperitoneum, bilateral pleural effusions, pelvic fractures, cirrhosis morphology of liver. Last echo with EF 54%. NICOLAS was with Dr. Fry 07/14/2022. Christian Amador is doing well. He was recently [...] with fatigue. Thinking is clear, moving his bowels2-3 times a day. He does follow locally [...] CVC TUNNELED N/A 10/03/2021 Laterality: N/A; Surgeon: Kaylin Duran II, MD; Location: [facility] INTERVENTIONAL RADIOLOGY (VIR) PLACEMENT PROBE FOR TRANSESOPHAGEAL [...] CVC TUNNELED Right 07/07/2016 Laterality: Right; Surgeon: Kaylin Grider MD; Location: [facility] INTERVENTIONAL RADIOLOGY (VIR) CARDIAC VEIN ELECTRODE PLACEMENT FOR LV PACING N/A 05/26/2016 Laterality: N/A; Surgeon: Yi Cody MD; Location: [facility] ROSS EP PACEMAKER PLACEMENT N/A 05/26/2016 Laterality: N/A; Surgeon: Yi Cody MD; Location: [facility] ROSS EP INSERTION CVC TUNNELED Right 05/19/2016 Laterality: Right; Surgeon: Kaylin Grider MD; Location: [facility] INTERVENTIONAL RADIOLOGY (VIR) INSERTION CVC TUNNELED Left 05/18/2016 Laterality: Left; Surgeon: Kaylin Grider MD; Location: [facility] INTERVENTIONAL RADIOLOGY (VIR) [...] Laterality: N/A; Surgeon: Favio Kline MD; Location: [facility] EP CARDIAC PACEMAKER PLACEMENT 10/20/2010 Implant: [employer] [id number] Versa CARDIAC PACEMAKER PLACEMENT 08/31/2003 Implant: [employer] [id number] [place] [address] APPENDECTOMY AR ANESTH,OPEN HEART SURGERY+PUMP Family History Problem Relation [...] by mouth at bedtime for sleep B [id number] Acid (NEPHRO-BALTAZAR PO) Take by mouth. Cyclobenzaprine 10 MG [...] C) Resp 16 Ht 1.702 m (5' 7) Wt 79.4 kg (175 lb) SpO2 100% [...] in the last year. ASSESSMENT AND PLAN: Christian Amador is a 72 y.o. 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 He was seen by our inpatient team 08/26-10/10/2021 for new concerns of cirrhosis.Patient initially transferred for acute hypoxic respiratory insufficiency secondary to COVID pneumonia, UTI, TIEN. Hospital course c/b left retroperitoneal bleed in setting of warfarin use and thrombocytopenia, pelvic fractures. He was noticed to have increasing hyperbilirubinemia. No recent episodes of hematemesis, melena, abdominal distention. Per , he was found to have increased LFTs in thepast, referred to Gastroenterology with negative workup, although unclear what was done. No historyof significant alcohol use, no IV drug use or history of hepatitis. No family history of liver disease. Patient also with no other reported liver disease. CTAP 09/02/21 with left retroperitoneal hemorrhage, no evidence of hemoperitoneum, bilateral pleural effusions, pelvic fractures, cirrhosis morphology of liver. Last echo with EF 54%. On iHD 3-4 times weekly. 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 Will [...] strictly avoid raw shellfish given the risk ofVibrio Vulnificus in cirrhotics. FOLLOW-UP -For follow up, he will return to Dr. Fry's clinic in 4 months. Thank you for allowing me to participate in the care of Christian Amador. PATRICIA Purdy Hepatology Nurse Practitioner Division of Gastroenterology, Hepatology, and Nutrition [facility] History of Present illness Narrative* Vaishnavi Clemons Ang, DO - 07/14/2022 11:30 AM EDT -Referring Provider for today's consult: Vinny Atkinson MD -Primary Care Provider: Vinny Atkisnon History of Present Illness Christian Amador is a 72 y.o. male who presents to the [facility] today for consultation regarding his diagnosis of Follow-up. I have reviewed his medical, surgical, family and social history and have updated medication and allergy information in the computerized patient record. I have also personally reviewed pertinent outside hospital documentation, laboratory results and imaging asoutlined below. Mr. 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 His liver disease was complicated by HE. He was started on Lactulose with some improvement, though Rifaximin later added after discharge given ongoing concerns for HE. Since his last clinic appointment, he has been having issues with joint pain for which he is takingAPAP. He reports improvement in HE. He has been taking Rifaximin. Stopped Lactulose. He denies signs of hepatic decompensation including ascites, jaundice, scleral icterus, or GIB. Past Medical History He has a past medical history of Anemia, Arthritis, Atrial flutter, Atrial tachycardia, BPH (benignprostatic hyperplasia), CAD (coronary artery disease), Cardiomyopathy, Congestive [...] Laterality: N/A; Surgeon: Remy Ferrer MD; Location: [facility] INTERVENTIONAL RADIOLOGY (VIR) INSERTION CVC TUNNELED N/A 10/03/2021 Laterality: N/A; Surgeon: Kaylin Duran II, MD; Location: [facility] INTERVENTIONAL RADIOLOGY (VIR) PLACEMENT PROBE FOR TRANSESOPHAGEAL ECHOCARDIOGRAPHY N/A 09/23/2021 Laterality: N/A; Surgeon: Sadia Nieto MD; Location: [facility] MAIN OR ESS NASAL DIAGNOSTIC Bilateral 09/20/2021 Laterality: Bilateral; Surgeon: You Wise MD; Location: [facility] MAIN OR ESS SPHENOID SINUSOTOMY WITH REMOVAL TISSUE Right 09/20/2021 Laterality: Right; Surgeon: You Wise MD; Location: [facility] MAIN OR ESS TOTAL ETHMOIDECTOMY Right 09/20/2021 Laterality: Right; Surgeon: You Wise MD; Location: [facility] MAIN OR REMOVAL CVC TUNNELED Right 07/07/2016 Laterality: Right; Surgeon: Kaylin Grider MD; Location: [facility] INTERVENTIONAL RADIOLOGY (VIR) CARDIAC VEIN ELECTRODE PLACEMENT FOR LV PACING N/A 05/26/2016 Laterality: N/A; Surgeon: Yi Cody MD; Location: [facility] EP PACEMAKER PLACEMENT N/A 05/26/2016 Laterality: N/A; Surgeon: Yi Cody MD; Location: [facility] EP INSERTION CVC TUNNELED Right 05/19/2016 Laterality: Right; Surgeon: Kaylin Grider MD; Location: [facility] INTERVENTIONAL RADIOLOGY (VIR) INSERTION CVC TUNNELED Left 05/18/2016 Laterality: Left; Surgeon: Kaylin Grider MD; Location: [facility] INTERVENTIONAL RADIOLOGY (VIR) PACEMAKER ELECTRODE REMOVAL N/A 05/08/2016 Laterality: N/A; Surgeon: Luigi Mart MD; Location: [facility] EP COLONOSCOPY DIAGNOSTIC N/A 03/20/2016 Laterality: N/A; Surgeon: eJremiah García MD; Location: [facility] ENDOSCOPY EP IMPLANT BIVENTRICULAR PACEMAKER TOTAL 08-07-2013 3 leads CARDIAC VEIN ELECTRODE PLACEMENT FOR LV PACING N/A 08/07/2013 Laterality: N/A; Surgeon: Favio Kline MD; Location: [facility] EP PACEMAKER ELECTRODE REMOVAL 08/07/2013 Surgeon: Favio Kline MD; Location: [facility] EP AV NODE ABLATION N/A 02/26/2013 Laterality: N/A; Surgeon: Favio Kline MD; Location: [facility] EP CARDIAC PACEMAKER PLACEMENT 10/20/2010 Implant: [employer]onic [id number] Versa CARDIAC PACEMAKER PLACEMENT 08/31/2003 Implant: [employer]onic [id number] [place] [address] APPENDECTOMY AR ANESTH,OPEN HEART SURGERY+PUMP Home Medications Current Outpatient [...] TIMES DAILY WITH MEALS (INCREASE TO 4 TABLETSIF EATING OUT) Tamsulosin HCl 0.4 MG capsule [...] pain, dyspnea on exertion, paroxysmal nocturnal dyspnea, peripheraledema. PULMONARY: Negative for any shortness of breath, [...] resp. rate 16, height 1.702 m (5' 7), weight 74.9 kg (165 lb 3.2 oz), [...] visualized due to artifact. Mean gradient 11 mmHg.Mild-moderate paravalvular and valvular regurgitation. S/p mitral valve [...] right greater than left. Assessment and Plan Christian Amador is a 72 y.o. male with [...] encephalopathy. He was advised when this was startedhe no longer needed Lactulose. His symptoms seem [...] to clinic in 6 months with Kelby Chance. Thank you for allowing us to participate in the care of Christian Amador. Vaishnavi Fry DO Guidance Director of Clinical Medicine Division of Gastroenterology, Hepatology and Nutrition [facility] Pager: [phone] 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 Hyperammonemia resolved Syncope resolved Encephalopathy acute Sepsis acute Vitamin D insufficiency 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 Acute encephalopathy resolve d Acute respiratory failure with hypoxia resolved History of heart valve repla cement with mechanical valve resolved Hyperammonemia resolved Norovirus resolved Pneumonia resolved Cough acute Dyspnea acute MIA (obstructive sleep apnea) acute Cough acute Benign essential hypertension chronic Biventricular cardiac pacemaker in situ May, chronic History of aortic valve replacement 2002 chronic History of mitral valve repair 2002 chronic Biventricular cardiac pacemaker in situ May, chronic [facility] Work Phone: [phone]) 510-997407-01-2016 Evaluation note* Diagnosis Onset Date Resolution Status Hyperammonemia chronic Mild cognitive impairment ch ronic Polyneuropathy chronic Syncope resolved Biventricular cardiac pacemaker in situ May, acute History of cardiac radiofrequency ablation (RFA) acute History of mitral valve repair August, acute HLD (hyperlipidemia) acute Biventricular cardiac pacemaker in situ May, acute History of atrioventricular chiquita ablation acute History of cardiac radiofrequency ablation (RFA) acute ESRD (end stage renal disease) on dialysis acute History of mechanical aortic valve replacement August acute History of mitral valve repair August, acute Liver cirrhosis acute GI bleed resolved [facility] Work Phone: [phone]) [phone] Evaluation note* Diagnosis Onset Date Resolution Status Biventricular cardiac pacemaker in situ May, acute History of cardiac radiofrequency ablation (RFA) acute History of mitral valve repair August, acute HLD (hyperlipidemia) acute Biventricular cardiac pacemaker in situ May, acute History of atrioventricular chiquita ablation acute History of cardiac radiofrequency ablation (RFA) acute ESRD (end stage renal disease) on dialysis acute History of mechanical aortic valve replacement August acute History of mitral valve repair August, acute Liver cirrhosis acute GI bleed resolved [facility] Work Phone: 1([phone] 231-222107-01-2016 Evaluation note* Diagnosis Onset Date Resolution Status Biventricular cardiac pacemaker in situ May, acute History of cardiac radiofrequency ablation (RFA) acute History of mitral valve repair August, acute HLD (hyperlipidemia) acute Biventricular cardiac pacemaker in situ May, acute History of atrioventricular chiquita ablation acute History of cardiac radiofrequency ablation (RFA) acute ESRD (end stage renal disease) on dialysis acute History of mechanical aortic valve replacement August acute History of mitral valve repair August, acute Liver cirrhosis acute GI bleed resolved Biventricular cardiac pacemaker in situ May, acute History of atrioventricular chiquita ablation acute History of cardiac radiofrequency ablation (RFA) acute Pleural effusion acute [facility] Work Phone: [phone] 300-796807-01-2016 Evaluation note* Diagnosis Onset Date Resolution Status Biventricular cardiac pacemaker in situ May, acute History of atrioventricular chiquita ablation acute Cardiomyopathy chronic Biventricular cardiac pacemaker in situ May, acute History of mitral valve repair August, acute HLD (hyperlipidemia) acute Cardiomyopathy chronic History of aortic valve replacement 2002 chronic History of cardiac radiofrequency ablation (RFA) 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 Other specified cardiac dysrhythmias chronic Benign essential hypertension resolved Essential tremor chronic Mild cognitive impairment ch ronic Polyneuropathy chronic Syncope resolved Biventricular cardiac pacemaker in situ May, acute History of atrioventricular chiquita ablation acute Cardiomyopathy chronic History of cardiac radiofrequency ablation (RFA) chronic Dyspnea [facility] Work Phone: 1([phone]) 244-427707-01-2016 Evaluation note* Diagnosis Onset Date Resolution Status Biventricular cardiac pacemaker in situ May, acute History of atrioventricular chiquita ablation acute Cardiomyopathy chronic History of cardiac radiofrequency ablation (RFA) chronic Dyspnea chronic Biventricular cardiac pacemaker in situ May, acute History of atrioventricular chiquita ablation acute Cardiomyopathy chronic Biventricular cardiac pacemaker in situ May, acute History of mitral valve repair August, acute Benign essential hypertension chronic CAD (coronary artery disease) chronic Cardiomyopathy chronic History of aortic valve replacement 2002 chronic History of cardiac radiofrequency ablation (RFA) chronic HLD (hyperlipidemia) chronic Other specified cardiac dysrhythmias [facility] Work Phone: 1([phone]) 529-943307-01-2016 Evaluation note* Diagnosis Onset Date Resolution Status Admit Date Biventricular cardiac pacema ker in situ May, acute January 28, 2025 10:02am Cardiomyopathy chronic January 10:02am History of cardiac radiofrequency ablation (RFA) chronic [facility] 2024 10:02am Biventricular cardiac pacema ker in situ May, acute January 28, 2025 10:03am History of mitral valve repair August, ac [place] January 28, 2025 10:03am Benign essential hypertension chroni c January 28, 2025 10:03am CAD (coronary artery disease) chroni c January 28, 2025 10:03am Cardiomyopathy chronic January 10:03am History of aortic valve replacement 2003 chronic January 28, 2025 10:03am History of cardiac radiofrequency ablation (RFA) chronic [facility] 2024 10:03am HLD (hyperlipidemia) chronic [facility] 2024 10:03am Other specified cardiac dysrhythmias chronic January 28, 2025 10:03am Early satiety acute March 17, 2025 2:51pm Emesis, persistent acute March 17, 2025 2:51pm Necrosis of colon acute February 182024 2:51pm 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, 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 2:51pm Abnormal CT scan, chest acute M 2024 9:12am Cardiomyopathy chronic March 25, 2 025 9:12am Dyspnea chronic March 25, 2025 9:12am MIA (obstructive sleep apnea) [facility] March 25, 2025 9:12am [facility] Work Phone: 1([phone] 655-241607-01-2016 Evaluation note* Diagnosis Onset Date Resolution Status Admit Date Biventricular cardiac pacemaker in situ May, acute January 28 10:02am Cardiomyopathy chronic January 10:02am History of cardiac radiofrequency ablation (RFA) [facility] 2024 10:02am Biventricular cardiac pacemaker in situ May, acute January 28 10:03am History of mitral valve repair August, ac [place] January 28, 2025 10:03am Benign essential hypertension [facility] January 28, 2025 10:03am CAD (coronary artery disease) [facility] January 28, 2025 10:03am Cardiomyopathy chronic January 10:03am History of aortic valve replacement 2002 [facility] January 28, 2025 10:03am History of cardiac radiofrequency ablation (RFA) [facility] 2024 10:03am HLD (hyperlipidemia) [facility] 2024 10:03am Other specified cardiac dysrhythmias chronic January 28, 2025 10:03am Early satiety acute March 17, 2025 2:51pm Emesis, persistent acute March 17, 2025 2:51pm Necrosis of colon acute February 182024 2:51pm 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 gastropathy chronic March 17, 2025 2:51pm Abnormal CT scan, chest acute M 2024 9:12am Cardiomyopathy chronic March 25, 2 025 9:12am Dyspnea chronic March 25, 2025 9:12am [facility]IA (ob[facility]ive [facility] apnea[facility] March 25, 2025 9:12am GI bleed acute May 27, 2025 12:45pm Hematochezia resolved May 27 12:45pm [facility] Work Phone: 1([phone] 403-504110-01-2003 Evaluation note* Diagnosis Onset Date Resolution Status ESRD (end stage renal disease) on dialysis acute History of mechanical aortic valve replacement August acute History of mitral valve repair August, acute Liver cirrhosis acute GI bleed resolved Biventricular cardiac pacemaker in situ May, acute History of atrioventricular chiquita ablation acute History of cardiac radiofrequency ablation (RFA) acute Pleural effusion acute Anemia chronic Problem with dialysis access acute [facility] Work Phone: [phone]) 646-760810-01-2003 Evaluation note* Diagnosis Onset Date Resolution Status ESRD (end stage renal disease) on dialysis acute History of mechanical aortic valve replacement August acute History of mitral valve repair August, acute Liver cirrhosis acute GI bleed resolved Biventricular cardiac pacemaker in situ May, acute History of atrioventricular chiquita ablation acute History of cardiac radiofrequency ablation (RFA) acute Pleural effusion acute Anemia chronic Problem with dialysis access acute ESRD (end stage renal disease) on dialysis acute Problem with dialysis access acute [facility] Work Phone: Discharge summary Author Dr. Centeno [facility] January 19, 2023 3:37pm Note Date/Time January 19, 2023 3:37 pm [facility] Medical Records Department [address] [place] [id number] Instructions for Home/Discharge Instructions 01/19/23 1536 MR#: [id number] Acct: [id number] Name: CHRISTIAN AMADOR Rep #:[id number] : 1950 72 From: Mimi Centeno MD PCP: Dr. Castro Ferrara, DO Status:ADM IN Discharge Instructions Diet Discharge Diet: - (Renal diet) Activity Discharge Activity: Return to Normal Activity Follow Up Care Test Results: Test results from this visit will be discussed in further detail at your follow- up appointment, if applicable. Discharge Plan Admission Admit Date/Time: 01/17/23 21:26 Primary Reason for Your Visit: Anemia Attending Provider: Mimi Centeno Primary Care Provider: Castro Ferrara Consulting Providers: Kdoy Zheng ; Sharron Calderon ; Karthikeyan Rothman Instructions Patient Instructions: ED Upper GI Bleeding (Stable) Additional Instructions / Restrictions: DISCHARGE INSTRUCTIONS PLEASE READ *Please take this with you to your next doctors appointment* -Would recommend lab work (CBC) to check your hemoglobin in 3 to 5 days through your primary care physician's office. Please call their office upon discharge to obtain order for lab work. -You will need to follow-up with Dr. Zheng with GI in his office upon discharge. Please call his office to schedule your hospital follow-up appointment (ph. [phone]) or call your outside provider to schedule a hospital follow-up appointment if preferred -Please resume your home Coumadin, your INR was 3.4 initially and on 01/19 it was 3.1 after a dose was held on admission due to bleeding. 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 Your blood pressure is much improved and you will not be discharged on the medicine to increase your blood pressure however would recommend holding isosorbide mononitrate and monitoring blood pressure. This will likely be able to be resumed but we discussed with prescribing physician prior to resumption -Please call your primary care provider's office upon discharge to schedule a hospital follow up within 1 week. -For any concerning signs or symptoms please call [phone] or proceed to the nearest emergency department Discharge Orders/Prescriptions Prescriptions: Continued alprazolam [Xanax] 1 mg tablet 0.5 mg PO QHS levetiracetam 250 mg tablet 250 mg PO BID Qty: 60 6RF cyclobenzaprine 10 mg tablet 10 mg PO BID PRN PRN (Reason: Muscle Pain) doxycycline hyclate 100 mg tablet 100 mg PO BID fluconazole [Diflucan] 200 mg tablet 200 mg PO DAILY tamsulosin 0.4 mg capsule 0.4 mg PO DINNER levothyroxine 75 mcg tablet 75 mcg PO DAILY Nephro-Baltazar 0.8 mg tablet 1 tab PO DAILY Label Comments: TAKE 1 TABLET BY MOUTH EVERY DAY Xifaxan 550 mg Tablet 550 mg PO BID warfarin 3 mg Tablet 3 mg PO DAILY Protocol: Dose Management Condition: Sunday Dose/Route: 3 mg Instruction: 1 x 3 mg tablet Condition: Sunday Dose/Route: 3 mg Instruction: 1 x 3 mg tablet Condition: Sunday Dose/Route: 3 mg Instruction: 1 x 3 mg tablet Condition: Sunday Dose/Route: 1.5 mg Instruction: 0.5 x 3 mg tablets Condition: Dose/Route: 3 mg Instruction: 1 x 3 mg tablet Condition: Sunday Dose/Route: 3 mg Instruction: 1 x 3 mg tablet Condition: Sunday Dose/Route: 3 mg Instruction: 1 x 3 mg tablet Protocol Text: Adjustment Start Date: 01/18/23 INR Value: 3.4 INR Date: 01/18/23 Recheck Date: 01/25/23 Rx Instructions: Every day except wednesdays warfarin 1 mg Tablet 1.5 mg PO QWEEK Protocol: Dose Management Condition: Sunday Dose/Route: 3 mg Instruction: 1 x 3 mg tablet Condition: Sunday Dose/Route: 3 mg Instruction: 1 x 3 mg tablet Condition: Sunday Dose/Route: 3 mg Instruction: 1 x 3 mg tablet Condition: Sunday Dose/Route: 1.5 mg Instruction: 0.5 x 3 mg tablets Condition: Dose/Route: 3 mg Instruction: 1 x 3 mg tablet Condition: Sunday Dose/Route: 3 mg Instruction: 1 x 3 mg tablet Condition: Sunday Dose/Route: 3 mg Instruction: 1 x 3 mg tablet Protocol Text: Adjustment Start Date: 01/18/23 INR Value: 3.4 INR Date: 01/18/23 Recheck Date: 01/25/23 Rx Instructions: every sunday pantoprazole 40 mg tablet,delayed release (DR/EC) 40 mg PO QAM Qty: 90 3RF Discontinued isosorbide mononitrate 30 mg tablet extended release 24 hr 30 mg PO DAILY isosorbide mononitrate 30 mg tablet extended release 24 hr 30 mg PO DAILY Referrals / Follow Up: Castro Ferrara DO [Primary Care Provider] - Within 1 Week Disposition Disposition (needs filled in before D/C Order can be placed): Home, Self Care 01/19/23 1537<Electronically signed by Mimi Centeno MD>Mimi Centeno MD CC: Dr. Sharron Calderon DO; Dr. Karthikeyan Rothman MD; Dr. 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 Acute encephalopathy resolve d Acute respiratory failure with hypoxia resolved History of heart valve repla cement with mechanical valve resolved Hyperammonemia resolved Norovirus resolved Pneumonia resolved Cough acute Dyspnea acute MIA (obstructive sleep apnea) acute Cough acute Benign essential hypertension chronic Biventricular cardiac pacemaker in situ May, chronic History of aortic valve replacement 2002 chronic History of mitral valve repair 2002 chronic Biventricular cardiac pacemaker in situ May, [facility] Work Phone: Evaluation note* Diagnosis Cirrhosis of liver without ascites, unspecified hepatic cirrhosis type 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 Acute encephalopathy resolve d Acute respiratory failure with hypoxia resolved History of heart valve repla cement with mechanical valve resolved Hyperammonemia resolved Norovirus resolved Pneumonia resolved Cough acute Dyspnea acute MIA (obstructive sleep apnea) acute Cough acute Benign essential hypertension chronic Biventricular cardiac pacemaker in situ May, chronic History of aortic valve replacement 2002 chronic History of mitral valve repair 2002 chronic Biventricular cardiac pacemaker in situ May, chronic Debility acute Epistaxis acute ESRD (end stage renal disease) on dialysis acute GI (gastrointestinal bleed) acute Supratherapeutic INR acute 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 History of aortic valve replacement 2002 chronic History of mitral valve repair 2002 [facility] Work Phone: Evaluation note* Diagnosis Onset Date Resolution Status Polyneuropathy acute Mild cognitive impairment ch ronic Vitamin D insufficiency 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 Hyperammonemia resolved Syncope resolved Encephalopathy acute Sepsis acute Vitamin D insufficiency 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 Acute encephalopathy resolve d Acute respiratory failure with hypoxia resolved History of heart valve repla cement with mechanical valve resolved Hyperammonemia resolved Norovirus resolved Pneumonia resolved Cough acute Dyspnea acute MIA (obstructive sleep apnea) acute Cough acute Benign essential hypertension chronic Biventricular cardiac pacemaker in situ May, chronic History of aortic valve replacement 2002 chronic History of mitral valve repair 2002 chronic Biventricular cardiac pacemaker in situ May, chronic Debility acute ESRD (end stage renal disease) on dialysis acute Supratherapeutic INR acute History of aortic valve replacement 2002 chronic History of mitral valve repair 2002 chronic Acute on chronic anemia reso lved Epistaxis resolved GI (gastrointestinal bleed) resolved [facility] Work Phone: Evaluation note* Diagnosis Onset Date Resolution Status Cough acute Dyspnea acute MIA (obstructive sleep apnea) acute Cough acute Benign essential hypertension chronic Biventricular cardiac pacemaker in situ May, chronic History of aortic valve replacement 2002 chronic History of mitral valve repair 2002 chronic Biventricular cardiac pacemaker in situ May, chronic Debility acute ESRD (end stage renal disease) on dialysis acute Supratherapeutic INR acute History of aortic valve replacement 2002 chronic History of mitral valve repair 2002 chronic Acute on chronic anemia reso lved Epistaxis resolved GI (gastrointestinal bleed) resolved Hyperammonemia chronic Mild cognitive impairment ch ronic Polyneuropathy chronic Syncope resolved CAD (coronary artery disease) acute Cardiomyopathy acute History of cardiac radiofrequency ablation (RFA) acute HLD (hyperlipidemia) acute intermediate (current) use of 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 acute Other specified cardiac dysrhythmias acute Benign essential hypertension chronic Biventricular cardiac pacemaker in situ May, chronic History of aortic valve replacement 2002 chronic History of mitral valve repair 2003 chronic Cardiomyopathy acute History of cardiac radiofrequency ablation (RFA) acute Biventricular cardiac pacemaker in situ May, chronic History of aortic valve replacement 2002 chronic History of mitral valve repair 2002 chronic [facility] Work Phone: Evaluation note* Diagnosis Cirrhosis of liver without ascites, unspecified hepatic cirrhosis type- Primary 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 Other specified cardiac dysrhythmias acute Benign essential hypertension chronic Biventricular cardiac pacemaker in situ May, chronic History of aortic valve replacement 2002 chronic History of mitral valve repair 2003 chronic Cardiomyopathy acute History of cardiac radiofrequency ablation (RFA) acute Biventricular cardiac pacemaker in situ May, chronic History of aortic valve replacement 2003 chronic History of mitral valve repair 2003 chronic Cough acute Dyspnea acute MIA (obstructive sleep apnea) acute Hematochezia resolved [facility] Work Phone: Evaluation note* Diagnosis Onset Date Resolution Status Debility acute ESRD (end stage renal disease) on dialysis acute Supratherapeutic INR acute History of aortic valve replacement 2003 chronic History of mitral valve repair 2003 chronic Acute on chronic anemia reso lved Epistaxis resolved GI (gastrointestinal bleed) resolved Hyperammonemia chronic Mild cognitive impairment ch ronic Polyneuropathy chronic Syncope resolved CAD (coronary artery disease) acute Cardiomyopathy acute History of cardiac radiofrequency ablation (RFA) acute HLD (hyperlipidemia) 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 Other specified cardiac dysrhythmias acute Benign essential hypertension chronic Biventricular cardiac pacemaker in situ May, chronic History of aortic valve replacement 2002 chronic History of mitral valve repair 2002 chronic Cardiomyopathy acute History of cardiac radiofrequency ablation (RFA) acute Biventricular cardiac pacemaker in situ May, chronic History of aortic valve replacement 2002 chronic History of mitral valve repair 2002 chronic Cough acute Dyspnea acute MIA (obstructive sleep apnea) acute Hematochezia resolved Cirrhosis acute Debility acute ESRD (end stage renal disease) on dialysis acute GI bleed acute Hyperkalemia acute Supratherapeutic INR acute 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 Benign essential hypertension chronic History of aortic valve replacement 2003 chronic History of mitral valve repair 2003 chronic Hyperammonemia chronic Acute metabolic encephalopathy resolved [facility] Work Phone: Evaluation note* Diagnosis Onset Date Resolution Status Acute on chronic anemia reso lved Debility resolved Epistaxis resolved GI (gastrointestinal bleed) resolved Supratherapeutic INR resolve d Hyperammonemia resolved Syncope resolved Cough resolved Dyspnea resolved GI bleed acute Hematochezia resolved Acute metabolic encephalopathy resolved Acute on chronic anemia reso lved Debility resolved GI bleed resolved Hyperammonemia resolved Hyperkalemia resolved Supratherapeutic INR resolve d [facility] Work Phone: Evaluation note* Diagnosis Onset Date Resolution Status Hyperammonemia resolved Syncope resolved Cough resolved Dyspnea resolved GI bleed acute Hematochezia resolved Acute metabolic encephalopathy resolved Acute on chronic anemia reso lved Debility resolved GI bleed resolved Hyperammonemia resolved Hyperkalemia resolved Supratherapeutic INR resolve [facility] Work Phone: Evaluation note* Diagnosis Onset Date Resolution Status Cough resolved Dyspnea resolved GI bleed acute Hematochezia resolved Acute metabolic encephalopathy resolved Acute on chronic anemia reso lved Debility resolved GI bleed resolved Hyperammonemia resolved Hyperkalemia resolved Supratherapeutic INR resolve [facility] Work Phone: Evaluation note* Diagnosis Onset Date Resolution Status GI bleed acute Hyperammonemia chronic Mild cognitive impairment ch ronic Polyneuropathy chronic Syncope resolved Benign essential hypertension acute Biventricular cardiac pacemaker in situ May, acute History of cardiac radiofrequency ablation (RFA) acute History of mitral valve repair August, acute HLD (hyperlipidemia) acute intermediate (current) use of 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 acute Biventricular cardiac pacemaker in situ May, acute History of atrioventricular chiquita ablation acute History of cardiac radiofrequency ablation (RFA) acute [facility] Work Phone: Evaluation note* Diagnosis Cirrhosis of liver without ascites, unspecified hepatic cirrhosis type- Primary [facility] Diagnosis Onset Date Resolution Status GI bleed acute Hyperammonemia chronic Mild cognitive impairment ch ronic Polyneuropathy chronic Syncope resolved Benign essential hypertension acute Biventricular cardiac pacemaker in situ May, acute History of cardiac radiofrequency ablation (RFA) acute History of mitral valve repair August, acute HLD (hyperlipidemia) acute intermediate (current) use of 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 acute Biventricular cardiac pacemaker in situ May, acute History of atrioventricular chiquita ablation acute History of cardiac radiofrequency ablation (RFA) acute Anemia requiring transfusions acute ESRD (end stage renal disease) on dialysis 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 Symptomatic anemia acute [facility] Work Phone: Evaluation note* Diagnosis Onset Date Resolution Status GI bleed acute Hyperammonemia chronic Mild cognitive impairment ch ronic Polyneuropathy chronic Syncope resolved Benign essential hypertension acute Biventricular cardiac pacemaker in situ May, acute History of cardiac radiofrequency ablation (RFA) acute History of mitral valve repair August, acute HLD (hyperlipidemia) acute intermediate (current) use of 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 acute Biventricular cardiac pacemaker in situ May, acute History of atrioventricular chiquita ablation acute History of cardiac radiofrequency ablation (RFA) acute ABLA (acute blood loss anemia) acute Anemia requiring transfusions acute Atherosclerotic heart diseas e of [place] coronary artery without angina pectoris acute Benign essential hypertension acute ESRD (end stage renal disease) on dialysis acute History of mechanical aortic valve replacement August acute History of mitral valve repair August, acute Liver cirrhosis acute intermediate (current) use of 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 acute Symptomatic anemia acute GI bleed resolved [facility] Work Phone: Evaluation note* Diagnosis Urinary frequency- Primary [facility] Diagnosis Other cirrhosis of liver- Primary [facility] Diagnosis Onset Date Resolution Status Anemia chronic Problem with dialysis access acute ESRD (end stage renal disease) on dialysis acute Problem with dialysis access acute Hyperammonemia chronic Mild cognitive impairment ch ronic Polyneuropathy chronic Syncope resolved GI bleed acute Hematochezia resolved Biventricular cardiac pacemaker in situ May, acute History of atrioventricular chiquita ablation acute Cardiomyopathy chronic Biventricular cardiac pacemaker in situ May, acute History of mitral valve repair August, acute HLD (hyperlipidemia) acute Cardiomyopathy chronic History of aortic valve replacement 2002 chronic History of cardiac radiofrequency ablation (RFA) 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 Other specified cardiac dysrhythmias chronic Benign essential hypertension resolved [facility] Work Phone: Evaluation note* Diagnosis Onset Date Resolution Status Hyperammonemia chronic Mild cognitive impairment ch ronic Polyneuropathy chronic Syncope resolved GI bleed acute Hematochezia resolved Biventricular cardiac pacemaker in situ May, acute History of atrioventricular chiquita ablation acute Cardiomyopathy chronic Biventricular cardiac pacemaker in situ May, acute History of mitral valve repair August, acute HLD (hyperlipidemia) acute Cardiomyopathy chronic History of aortic valve replacement 2002 chronic History of cardiac radiofrequency ablation (RFA) 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 Other specified cardiac dysrhythmias chronic Benign essential hypertension resolved [facility] Work Phone: Evaluation note* Diagnosis SSS (sick sinus syndrome) Sinoatrial node dysfunction Pleural effusion- Primary Unspecified pleural effusion SSS (sick sinus syndrome) Sinoatrial node dysfunction PAF (paroxysmal atrial fibrillation) Atrial fibrillation Benign prostatic hyperplasia, unspecified whether lower urinary tract symptoms present Debility Debility, unspecified TIEN (acute kidney injury) Acute kidney failure, unspecified Fungemia Other and unspecified mycoses Acute candidal endocarditis Cirrhosis of liver without ascites, unspecified hepatic cirrhosis type Altered mental status, unspecified altered mental status type Pneumonia due to COVID-19 virus Electrolyte disorder (K, Cl, or Na) Electrolyte and fluid disorders not elsewhere classified Renal disease (High Serum Creatinine) Unspecified disorder of kidney and ureter Acute encephalopathy Encephalopathy, unspecified Subtherapeutic international normalized ratio (INR) Abnormal coagulation profile Cardiac arrest Syncope, unspecified syncope type TIA (transient ischemic attack) Unspecified transient cerebral ischemia Infection due to implanted cardiac device Open wound of abdominal wall, initial encounter Cardiomyopathy, nonischemic Other primary cardiomyopathies H/O mechanical aortic valve replacement Heart valve replaced by other means Chronic systolic heart failure Atrial fibrillation, unspecified type Anemia, unspecified type Non-Hodgkin's lymphoma, unspecified body region, unspecified non-Hodgkin lymphoma type S/P radiofrequency ablation operation for arrhythmia Other postprocedural status Atrial tachycardia Other specified cardiac dysrhythmias Atrial flutter, unspecified type HTN (hypertension), benign Essential hypertension, benign MIA (obstructive sleep apnea) Obstructive sleep apnea (adult) (pediatric) SSS (sick sinus syndrome) Sinoatrial node dysfunction [facility] Diagnosis SSS (sick sinus syndrome) Sinoatrial node dysfunction SSS (sick sinus syndrome) Sinoatrial node dysfunction [facility] Diagnosis Other cirrhosis of liver- Primary [facility] Diagnosis Cirrhosis of liver without ascites, unspecified hepatic cirrhosis type Frailty Senility without mention of psychosis Physical deconditioning Debility, unspecified [facility] Diagnosis Atrial fibrillation- Primary A-fib Atrial fibrillation H/O mechanical aortic valve replacement Heart valve replaced by other means HTN (hypertension), benign Essential hypertension, benign SSS (sick sinus syndrome) Sinoatrial node dysfunction Atrial flutter Atrial tachycardia Other specified cardiac dysrhythmias Chronic systolic heart failure High Grade B cell lymphoma Other malignant lymphomas, unspecified site, extranodal and solid organ sites Hematoma of groin Contusion of abdominal wall Cardiomyopathy Other primary cardiomyopathies SSS (sick sinus syndrome) Sinoatrial node dysfunction Other cirrhosis of liver- Primary [facility] Diagnosis Atrial fibrillation- Primary A-fib Atrial fibrillation H/O mechanical aortic valve replacement Heart valve replaced by other means HTN (hypertension), benign Essential hypertension, benign SSS (sick sinus syndrome) Sinoatrial node dysfunction Atrial flutter Atrial tachycardia Other specified cardiac dysrhythmias Chronic systolic heart failure High Grade B cell lymphoma Other malignant lymphomas, unspecified site, extranodal and solid organ sites Hematoma of groin Contusion of abdominal wall Cardiomyopathy Other primary cardiomyopathies SSS (sick sinus syndrome) Sinoatrial node dysfunction ESRD (end stage renal disease)- Primary End stage renal disease ESRD (end stage renal disease) End stage renal disease Mechanical complication of hemodialysis catheter Acute candidal endocarditis CAD (coronary artery disease) Coronary atherosclerosis of unspecified type of vessel, [place] or graft Chronic systolic heart failure Electrolyte disorder (K, Cl, or Na) Electrolyte and fluid disorders not elsewhere classified H/O mechanical aortic valve replacement Heart valve replaced by other means HTN (hypertension), benign Essential hypertension, benign S/P radiofrequency ablation operation for arrhythmia Other postprocedural status [facility] Diagnosis Atrial fibrillation- Primary A-fib Atrial fibrillation H/O mechanical aortic valve replacement Heart valve replaced by other means HTN (hypertension), benign Essential hypertension, benign SSS (sick sinus syndrome) Sinoatrial node dysfunction Atrial flutter Atrial tachycardia Other specified cardiac dysrhythmias Chronic systolic heart failure High Grade B cell lymphoma Other malignant lymphomas, unspecified site, extranodal and solid organ sites Hematoma of groin Contusion of abdominal wall Cardiomyopathy Other primary cardiomyopathies SSS (sick sinus syndrome) Sinoatrial node dysfunction Empyema- Primary Empyema without mention of fistula Pleural effusion Unspecified pleural effusion Stenosis colon Unspecified intestinal obstruction Abnormal colonoscopy Nonspecific (abnormal) findings on radiological and other examination of gastrointestinal tract Chronic pleural effusion Systolic heart failure, unspecified HF chronicity ESRD (end stage renal disease) End stage renal disease Subtherapeutic international normalized ratio (INR) Abnormal coagulation profile Thrombocytopenia (Low Platelets) Thrombocytopenia, unspecified [facility] Diagnosis Atrial fibrillation- Primary A-fib Atrial fibrillation H/O mechanical aortic valve replacement Heart valve replaced by other means HTN (hypertension), benign Essential hypertension, benign SSS (sick sinus syndrome) Sinoatrial node dysfunction Atrial flutter Atrial tachycardia Other specified cardiac dysrhythmias Chronic systolic heart failure High Grade B cell lymphoma Other malignant lymphomas, unspecified site, extranodal and solid organ sites Hematoma of groin Contusion of abdominal wall Cardiomyopathy Other primary cardiomyopathies SSS (sick sinus syndrome) Sinoatrial node dysfunction Other cirrhosis of liver- Primary Hepatic encephalopathy Metabolic dysfunction-associated steatohepatitis (MASH) [facility] Attachments The following attachments cannot be sent through Care Everywhere. * [facility] (Malagasy[facility] for referral (narrative)No reason for referral information availableWSelect [facility] [place] Work Phone: Reason for visit Narrative* Auth/Cert (Routine) Specialty Diagnoses / Procedures Referred By Pricila t Referred To Contact Diagnoses Pneumonia (Empyema) Fernanda Parra MD [address] [place] [address] Phone: tel: fax: [facility] [address] [place] [address] Referral ID Status Reason Start Date Expiration Date Visits Re quested Visits Authorized [id number] 1 1 [facility] Summary Purpose Family History No Family History Records Found Relationship Condition Age at Onset Recorded Date/T carleen father Coronary artery disease Unknown brother Coronary artery disease Unknown mother Diabetes mellitus Unknown sister Malignant neoplasm of breast Unknown Diabetes mellitus Unknown sister Malignant neoplasm Unknown Advance Directives No Advanced Directives Records Found Advance Directive Response Recorded Date/ Time Advance Directives Yes September 22, 2020 1:15pm Living Will Yes January 10 4:07pm Power of Medical Imaging Tech Yes January 10, 2022 4:07pm Latest Code Status on File Code Status Date Activated Date Inactivated Comments Full Code 10/10/2021 6:50 PM Full Code 08/26/2021 5:39 PM 10/10/2021 6:50 PM Full Code 05/19/2021 11:54 PM 08/26/2021 5:39 PM Full Code 2021 7:22 AM 05/19/2021 11:54 PM Full Code 02/26/2021 5:53 PM 2021 7:22 AM Advance Directive Response Recorded Date/ Time Name of Medical Power of Medical Imaging Tech ANNA AMADOR January 10, 2022 4:07pm Advance Directives Yes September 22, 2020 1:15pm Living Will No April 04, 2022 9 :10am Power of Medical Imaging Tech No April 04, 2022 9:10am Advance Directive Response Recorded Date/ Time Name of Medical Power of Medical Imaging Tech ANNA AMADOR January 10, 2022 4:07pm Advance Directives Yes September 22, 2020 1:15pm Living Will No April 08, 2022 5 :45am Power of Medical Imaging Tech No April 08, 2022 5:45am Advance Directive Response Recorded Date/ Time Advance Directives Yes September 22, 2020 1:15pm Living Will No April 08, 2022 5 :45am Power of Medical Imaging Tech No April 08, 2022 5:45am Advance Directive Response Recorded Date/ Time Advance Directives on File Yes 2019 1:15pm Name of Medical Power of Medical Imaging Tech ANNA AMADOR () September 22, 2020 1:15pm Name of Medical Power of Medical Imaging Tech July 15, 2022 11:54am Advance Directives Yes September 22, 2020 1:15pm Living Will Yes July 15 11:54am Power of Medical Imaging Tech Yes July 15 11:54am Advance Directive Response Recorded Date/ Time Advance Directives on File Yes 2019 1:15pm Name of Medical Power of Medical Imaging Tech ANNA AMADOR () September 22, 2020 1:15pm Name of Medical Power of Medical Imaging Tech Anna Amador July 15, 2022 8:00pm Advance Directives Yes September 22, 2020 1:15pm Living Will Yes July 15 8:00pm Power of Medical Imaging Tech Yes July 15 022 8:00pm Advance Directive Response Recorded Date/ Time Advance Directives Yes September 22, 2020 12:15pm Living Will Yes July 15 7:00pm Power of Medical Imaging Tech Yes July 15 7:00pm Latest Code Status on File Code Status Date Activated Date Inactivated Comments Full Code 10/10/2021 6:50 PM Code Status History Code Status Date Activated Date Inactivated Comments Full Code 08/26/2021 5:39 PM 10/10/2021 6:50 PM Full Code 05/19/2021 11:54 PM 08/26/2021 5:39 PM Full Code 2021 7:22 AM 05/19/2021 11:54 PM Full Code 02/26/2021 5:53 PM 2021 7:22 AM Advance Directive Response Recorded Date/ Time Advance Directives Yes September 22, 2020 12:15pm Living Will No January 17, 2023 5:51pm Power of Medical Imaging Tech No January 17 5:51pm Advance Directive Response Recorded Date/ Time Name of Medical Power of Medical Imaging Tech anna lacy ana maría January 17, 2023 10:33pm Advance Directives Yes September 22, 2020 12:15pm Living Will Yes January 17, 2023 10:33pm Power of Medical Imaging Tech Yes January 17 10:33pm Advance Directive Response Recorded Date/ Time Name of Medical Power of Medical Imaging Tech anna lacy ana maría January 17, 2023 11:33pm Advance Directives Yes September 22, 2020 1:15pm Living Will Yes January 17, 2023 11:33pm Power of Medical Imaging Tech Yes January 17 11:33pm Latest Code Status on File Code Status Date Activated Date Inactivated Comments Full Code 02/03/2023 6:13 AM Code Status History Code Status Date Activated Date Inactivated Comments Full Code 10/10/2021 6:50 PM 02/03/2023 6:13 AM Full Code 08/26/2021 5:39 PM 10/10/2021 6:50 PM Full Code 05/19/2021 11:54 PM 08/26/2021 5:39 PM Full Code 2021 7:22 AM 05/19/2021 11:54 PM Advance Directive Response Recorded Date/ Time Name of Medical Power of Medical Imaging Tech anna lacy ana maría January 17, 2023 11:33pm Advance Directives on File Yes March 192022 9:06am Name of Medical Power of Medical Imaging Tech Martin March 29, 2023 9:06am Advance Directives Yes March 29 9:06am Living Will Yes March 29, 2023 9 :06am Power of Medical Imaging Tech Yes March 29, 2023 9:06am Advance Directive Response Recorded Date/ Time Name of Medical Power of Medical Imaging Tech anna lacy ana maría January 17, 2023 11:33pm Advance Directives on File Yes March 192022 9:06am Name of Medical Power of Medical Imaging Tech (Anna March 29, 2023 9:06am Name of Medical Power of Medical Imaging Tech Anna MOISE wi fe March 29, 2023 5:12pm Advance Directives Yes March 29 9:06am Living Will Yes March 29, 2023 5 :12pm Power of Medical Imaging Tech Yes March 29, 2023 5:12pm Latest Code Status on File Code Status Date Activated Date Inactivated Comments Full Code 02/03/2023 6:13 AM Code Status History Code Status Date Activated Date Inactivated Comments Full Code 10/10/2021 6:50 PM 02/03/2023 6:13 AM Full Code 08/26/2021 5:39 PM 10/10/2021 6:50 PM Full Code 05/19/2021 11:54 PM 08/26/2021 5:39 PM Full Code 2021 7:22 AM 05/19/2021 11:54 PM Advance Directive Response Recorded Date/ Time Advance Directives on File Yes 2019 1:15pm Name of Medical Power of Medical Imaging Tech ANNA AMADOR () September 22, 2020 1:15pm Advance Directives on File Yes March 192022 9:06am Name of Medical Power of Medical Imaging Tech (Anna March 29, 2023 9:06am Name of Medical Power of Medical Imaging Tech Anna MOISE wi fe March 29, 2023 5:12pm Advance Directives Yes March 29 9:06am Living Will Yes March 29, 2023 5 :12pm Power of Medical Imaging Tech Yes March 29, 2023 5:12pm Advance Directive Response Recorded Date/ Time Advance Directives on File Yes 2019 1:15pm Name of Medical Power of Medical Imaging Tech ANNA AMADOR () September 22, 2020 1:15pm Advance Directives Yes March 29 9:06am Living Will Yes March 29, 2023 5 :12pm Power of Medical Imaging Tech Yes March 29, 2023 5:12pm Advance Directive Response Recorded Date/ Time Advance Directives Yes March 29 8:06am Living Will Yes March 29, 2023 4 :12pm Power of Medical Imaging Tech Yes March 29, 2023 4:12pm Date Activated Date Inactivated Comments 02/03/2023 6:13 AM Date Activated Date Inactivated Comments 10/10/2021 6:50 PM 02/03/2023 6:13 AM Date Activated Date Inactivated Comments 08/26/2021 5:39 PM 10/10/2021 6:50 PM Date Activated Date Inactivated Comments 05/19/2021 11:54 PM 08/26/2021 5:39 PM Date Activated Date Inactivated Comments 2021 7:22 AM 05/19/2021 11:54 PM Date Activated Date Inactivated Comments 04/02/2024 11:37 AM Date Activated Date Inactivated Comments 02/03/2023 6:13 AM 04/02/2024 11:37 AM Date Activated Date Inactivated Comments 10/10/2021 6:50 PM 02/03/2023 6:13 AM Date Activated Date Inactivated Comments 08/26/2021 5:39 PM 10/10/2021 6:50 PM Date Activated Date Inactivated Comments 05/19/2021 11:54 PM 08/26/2021 5:39 PM Date Activated Date Inactivated Comments 12/18/2024 2:02 PM Date Activated Date Inactivated Comments 04/02/2024 11:37 AM 12/18/2024 2:02 PM Date Activated Date Inactivated Comments 02/03/2023 6:13 AM 04/02/2024 11:37 AM Date Activated Date Inactivated Comments 10/10/2021 6:50 PM 02/03/2023 6:13 AM Date Activated Date Inactivated Comments 08/26/2021 5:39 PM 10/10/2021 6:50 PM Advance Directive Response Recorded Date/ Time Living Will Yes March 29, 2023 5 :12pm Do you have a Healthcare Power of Medical Imaging Tech? Yes March 29, 2023 5:12pm Living Will Yes December 16 6:17pm Do you have a Healthcare Power of Medical Imaging Tech? Yes December 16, 2024 6:17pm Name of Medical Power of Medical Imaging Tech Crys Mcguire December 16, 2024 6:17pm Living Will Yes February 12, 2025 10:36pm Do you have a Healthcare Power of Medical Imaging Tech? Yes February 12, 2025 10:36pm Name of Medical Power of Medical Imaging Tech --anna February 12, 2025 10:36pm Living Will Yes December 17 8:43pm Do you have a Healthcare Power of Medical Imaging Tech? Yes December 17, 2024 8:43pm Name of Medical Power of Medical Imaging Tech ANNA MCGUIRE December 17, 2024 8:43pm Advance Directives Yes March 29 9:06am Date Activated Date Inactivated Comments 02/13/2025 10:53 AM Date Activated Date Inactivated Comments 12/18/2024 2:02 PM 02/13/2025 10:53 AM Date Activated Date Inactivated Comments 04/02/2024 11:37 AM 12/18/2024 2:02 PM Date Activated Date Inactivated Comments 02/03/2023 6:13 AM 04/02/2024 11:37 AM Date Activated Date Inactivated Comments 10/10/2021 6:50 PM 02/03/2023 6:13 AM Advance Directive Response Recorded Date/ Time Living Will Yes March 29, 2023 5 :12pm Do you have a Healthcare Power of Medical Imaging Tech? Yes March 29, 2023 5:12pm Living Will Yes February 12, 2025 10:36pm Do you have a Healthcare Power of Medical Imaging Tech? Yes February 12, 2025 10:36pm Name of Medical Power of Medical Imaging Tech --anna February 12, 2025 10:36pm Do you have a Healthcare Power of Medical Imaging Tech? Yes April 18, 2025 6:23pm Name of Medical Power of Medical Imaging Tech Anna Amador April 18, 2025 6:23pm Advance Directives Yes March 29 9:06am Advance Directive Response Recorded Date/ Time Living Will Yes March 29, 2023 5 :12pm Do you have a Healthcare Pow er of Medical Imaging Tech? Yes March 29, 2023 5:12pm Advance Directives on File Yes 2019 1:15pm Living Will Yes September 22 1:15pm Do you have a Healthcare Pow er of Medical Imaging Tech? Yes September 22, 2020 1:15pm Name of Medical Power of Medical Imaging Tech ANNA AMADOR () September 22, 2020 1:15pm Living Will Yes March 27th, 2025 10:36pm Do you have a Healthcare Pow er of Medical Imaging Tech? Yes February 12, 2025 10:36pm Name of Medical Power of Medical Imaging Tech --anna February 12, 2025 10:36pm Do you have a Healthcare Pow er of Medical Imaging Tech? Yes April 18, 2025 6:23pm Name of Medical Power of Medical Imaging Tech Anna Amador April 18, 2025 6:23pm Advance Directives Yes March 29 9:06am Chief Complaint and Reason for Visit Chief Complaint S/P [facility] (RECORDS [facility]) PPM CK S/O TIEN WEAKNESS/ PT BRING RX S/O kidney desaese VM 12/12, FISTULA HYPERKALEMIA SYNCOPE EPISODES/HOSP FU SEPSIS,ACUTE HYPOXIC RESP FAILURE,ENCEPHALOPATHY SEPSIS,ACUTE HYPOXIC RESP FAILURE,ENCEPHALOPATHY SEPSIS,ACUTE HYPOXIC RESP FAILURE,ENCEPHALOPATHY SEPSIS,ACUTE HYPOXIC RESP FAILURE,ENCEPHALOPATHY SEPSIS,ACUTE HYPOXIC RESP FAILURE,ENCEPHALOPATHY S/O/ LABS FROM 2 OTHER DRS/CC INR TO [facility] FU 3 mos COOK SHORT ORDER-P f/u Sees JHR @ 9AM SLEEP APNEA; LM 02/06 S/O/ LABS FROM 2 OTHER DRS/CC INR TO [facility] Dyspnea, unspecified Dyspnea, unspecified Reason for Visit Benign essential hyp ertension Biventricular cardiac pacemaker in situ History of aortic valve replacement History of mitral valve repair Syncope Biventricular cardiac pacemaker in situ 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, 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 Polyneuropathy Mild cognitive impairment Vitamin D insufficiency Hyperammonemia Syncope Encephalopathy Sepsis Vitamin D insufficiency Acute encephalopathy Acute respiratory failure with hypoxia History of heart valve replacement with mechanical valve Hyperammonemia Norovirus Pneumonia Cough Dyspnea MIA (obstructive sleep apnea) Cough Benign essential hypertension Biventricular cardiac pacemaker in situ History of aortic valve replacement History of mitral valve repair Biventricular cardiac pacemaker in situ Chief Complaint S/P [facility] (RECORDS [facility]) PPM CK S/O TIEN WEAKNESS/ PT BRING RX S/O kidney desaese VM 12/12, FISTULA HYPERKALEMIA SYNCOPE EPISODES/HOSP FU SEPSIS,ACUTE HYPOXIC RESP FAILURE,ENCEPHALOPATHY SEPSIS,ACUTE HYPOXIC RESP FAILURE,ENCEPHALOPATHY SEPSIS,ACUTE HYPOXIC RESP FAILURE,ENCEPHALOPATHY SEPSIS,ACUTE HYPOXIC RESP FAILURE,ENCEPHALOPATHY SEPSIS,ACUTE HYPOXIC RESP FAILURE,ENCEPHALOPATHY S/O/ [facility]S [facility] DRS[facility] COOK SHORT ORDER-P f/u Sees JHR @ 9AM SLEEP APNEA; LM 02/06 S/O/ LABS FROM 2 OTHER DRS[facility] Dyspnea, unspecified Dyspnea, unspecified S/O/ LABS FROM 2 OTHER DRS/CC [facility] TO [facility] ENCEPHALOPATHY Reason for Visit Benign essential hyp ertension Biventricular cardiac pacemaker in situ History of aortic valve replacement History of mitral valve repair Syncope Biventricular cardiac pacemaker in situ 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, stage III (moderate) intermediate (current) use of 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 Polyneuropathy Mild cognitive impairment Vitamin D insufficiency Hyperammonemia Syncope Encephalopathy Sepsis Vitamin D insufficiency Acute encephalopathy Acute respiratory failure with hypoxia History of heart valve replacement with mechanical valve Hyperammonemia Norovirus Pneumonia Cough Dyspnea MIA (obstructive sleep apnea) Cough Benign essential hypertension Biventricular cardiac pacemaker in situ History of aortic valve replacement History of mitral valve repair Biventricular cardiac pacemaker in situ Chief Complaint S/O TIEN WEAKNESS/ PT BRING RX S/O kidney desaese VM 12/12, FISTULA HYPERKALEMIA SYNCOPE EPISODES/HOSP FU SEPSIS,ACUTE HYPOXIC RESP FAILURE,ENCEPHALOPATHY SEPSIS,ACUTE HYPOXIC RESP FAILURE,ENCEPHALOPATHY SEPSIS,ACUTE HYPOXIC RESP FAILURE,ENCEPHALOPATHY SEPSIS,ACUTE HYPOXIC RESP FAILURE,ENCEPHALOPATHY SEPSIS,ACUTE HYPOXIC RESP FAILURE,ENCEPHALOPATHY S/O/ LABS FROM 2 OTHER DRS/CC INR TO [facility] FU 3 mos COOK SHORT ORDER-P f/u Sees JHR @ 9AM SLEEP APNEA; LM 02/06 S/O/ LABS FROM 2 OTHER DRS/CC [facility] Dyspnea, unspecified Dyspnea, unspecified S/O/ LABS FROM 2 OTHER DRS/CC [facility] ENCEPHALOPATHY Reason for Visit Chronic kidney disea se, stage III (moderate) intermediate (current) use of 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 Polyneuropathy Mild cognitive impairment Vitamin D insufficiency Hyperammonemia Syncope Encephalopathy Sepsis Vitamin D insufficiency Acute encephalopathy Acute respiratory failure with hypoxia History of heart valve replacement with mechanical valve Hyperammonemia Norovirus Pneumonia Cough Dyspnea MIA (obstructive sleep apnea) Cough Benign essential hypertension Biventricular cardiac pacemaker in situ History of aortic valve replacement History of mitral valve repair Biventricular cardiac pacemaker in situ Chief Complaint TIEN WEAKNESS/ PT BRING RX I483 kidney desaese VM 12/12, FISTULA HYPERKALEMIA SYNCOPE EPISODES/HOSP FU SEPSIS,ACUTE HYPOXIC RESP FAILURE,ENCEPHALOPATHY SEPSIS,ACUTE HYPOXIC RESP FAILURE,ENCEPHALOPATHY SEPSIS,ACUTE HYPOXIC RESP FAILURE,ENCEPHALOPATHY SEPSIS,ACUTE HYPOXIC RESP FAILURE,ENCEPHALOPATHY SEPSIS,ACUTE HYPOXIC RESP FAILURE,ENCEPHALOPATHY S/O/ LABS FROM 2 OTHER DRS/CC INR TO [facility] FU 3 mos COOK SHORT ORDER-P f/u Sees JHR @ 9AM SLEEP APNEA; LM 02/06 S/O/ [facility] Dyspnea, unspecified Dyspnea, unspecified ENCEPHALOPATHY S/O/ LABS FROM 2 OTHER DRS/CC [facility] TO [facility] Reason for Visit Chronic kidney disea se, 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 Polyneuropathy Mild cognitive impairment Vitamin D insufficiency Hyperammonemia Syncope Encephalopathy Sepsis Vitamin D insufficiency Acute encephalopathy Acute respiratory failure with hypoxia History of heart valve replacement with mechanical valve Hyperammonemia Norovirus Pneumonia Cough Dyspnea MIA (obstructive sleep apnea) Cough Benign essential hypertension Biventricular cardiac pacemaker in situ History of aortic valve replacement History of mitral valve repair Biventricular cardiac pacemaker in situ Chief Complaint I483 kidney desaese VM 12/12, FISTULA HYPERKALEMIA SYNCOPE EPISODES/HOSP FU SEPSIS,ACUTE HYPOXIC RESP FAILURE,ENCEPHALOPATHY SEPSIS,ACUTE HYPOXIC RESP FAILURE,ENCEPHALOPATHY SEPSIS,ACUTE HYPOXIC RESP FAILURE,ENCEPHALOPATHY SEPSIS,ACUTE HYPOXIC RESP FAILURE,ENCEPHALOPATHY SEPSIS,ACUTE HYPOXIC RESP FAILURE,ENCEPHALOPATHY S/O/ LABS FROM 2 OTHER DRS/CC INR TO [facility] FU 3 mos COOK SHORT ORDER-P f/u Sees JHR @ 9AM SLEEP APNEA; LM 02/06 S/O/ LABS FROM 2 OTHER DRS/CC INR TO [facility] Dyspnea, unspecified Dyspnea, unspecified ENCEPHALOPATHY S/O/ LABS FROM 2 OTHER DRS/CC IN[facility] TO [facility] S/O GI BLEED GI BLEED GI BLEED GI BLEED GI BLEED Reason for Visit Chronic kidney disea se, 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 Polyneuropathy Mild cognitive impairment Vitamin D insufficiency Hyperammonemia Syncope Encephalopathy Sepsis Vitamin D insufficiency Acute encephalopathy Acute respiratory failure with hypoxia History of heart valve replacement with mechanical valve Hyperammonemia Norovirus Pneumonia Cough Dyspnea MIA (obstructive sleep apnea) Cough Benign essential hypertension Biventricular cardiac pacemaker in situ History of aortic valve replacement History of mitral valve repair Biventricular cardiac pacemaker in situ Debility Epistaxis ESRD (end stage renal disease) on dialysis GI (gastrointestinal bleed) Supratherapeutic INR Acute on chronic anemia History of aortic valve replacement History of mitral valve repair Chief Complaint I483 kidney desaese VM 12/12, FISTULA HYPERKALEMIA SYNCOPE EPISODES/HOSP FU SEPSIS,ACUTE HYPOXIC RESP FAILURE,ENCEPHALOPATHY SEPSIS,ACUTE HYPOXIC RESP FAILURE,ENCEPHALOPATHY SEPSIS,ACUTE HYPOXIC RESP FAILURE,ENCEPHALOPATHY SEPSIS,ACUTE HYPOXIC RESP FAILURE,ENCEPHALOPATHY SEPSIS,ACUTE HYPOXIC RESP FAILURE,ENCEPHALOPATHY S/O/ LABS FROM 2 OTHER DRS[facility] 3 mos COOK SHORT ORDER-P f/u Sees JHR @ 9AM SLEEP APNEA; LM 02/06 S/O/ LABS FROM 2 OTHER DRS/CC [facility] Dyspnea, unspecified Dyspnea, unspecified ENCEPHALOPATHY S/O/ LABS FROM 2 OTHER DRS/CC [facility] GI BLEED GI BLEED GI BLEED GI BLEED GI BLEED S/O nose bleed Reason for Visit Chronic kidney disea se, 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 Polyneuropathy Mild cognitive impairment Vitamin D insufficiency Hyperammonemia Syncope Encephalopathy Sepsis Vitamin D insufficiency Acute encephalopathy Acute respiratory failure with hypoxia History of heart valve replacement with mechanical valve Hyperammonemia Norovirus Pneumonia Cough Dyspnea MIA (obstructive sleep apnea) Cough Benign essential hypertension Biventricular cardiac pacemaker in situ History of aortic valve replacement History of mitral valve repair Biventricular cardiac pacemaker in situ Debility Epistaxis ESRD (end stage renal disease) on dialysis GI (gastrointestinal bleed) Supratherapeutic INR Acute on chronic anemia History of aortic valve replacement History of mitral valve repair Chief Complaint HYPERKALEMIA SYNCOPE EPISODES/HOSP FU SEPSIS,ACUTE HYPOXIC RESP FAILURE,ENCEPHALOPATHY SEPSIS,ACUTE HYPOXIC RESP FAILURE,ENCEPHALOPATHY SEPSIS,ACUTE HYPOXIC RESP FAILURE,ENCEPHALOPATHY SEPSIS,ACUTE HYPOXIC RESP FAILURE,ENCEPHALOPATHY SEPSIS,ACUTE HYPOXIC RESP FAILURE,ENCEPHALOPATHY S/O/ LABS FROM 2 OTHER DRS/CC INR TO [facility] FU 3 mos COOK SHORT ORDER-P f/u Sees JHR @ 9AM SLEEP APNEA; LM 02/06 S/O/ LABS FROM 2 OTHER DRS/CC IN[facility] TO [facility] Dyspnea, unspecified Dyspnea, unspecified ENCEPHALOPATHY S/O/ LABS FROM 2 OTHER DRS/CC [facility] GI BLEED GI BLEED GI BLEED GI BLEED GI BLEED nose bleed S/O Reason for Visit Polyneuropathy Mild cognitive impairment Vitamin D insufficiency Hyperammonemia Syncope Encephalopathy Sepsis Vitamin D insufficiency Acute encephalopathy Acute respiratory failure with hypoxia History of heart valve replacement with mechanical valve Hyperammonemia Norovirus Pneumonia Cough Dyspnea MIA (obstructive sleep apnea) Cough Benign essential hypertension Biventricular cardiac pacemaker in situ History of aortic valve replacement History of mitral valve repair Biventricular cardiac pacemaker in situ Debility ESRD (end stage renal disease) on dialysis Supratherapeutic INR History of aortic valve replacement History of mitral valve repair Acute on chronic anemia Epistaxis GI (gastrointestinal bleed) Chief Complaint Hospital FU 3 mos COOK SHORT ORDER-P f/u Sees J[facility] @ 9AM SLEEP APNEA; LM 02/06 S/O/ LABS FROM 2 OTHER DRS/CC INR TO [facility] Dyspnea, unspecified Dyspnea, unspecified ENCEPHALOPATHY S/O/ LABS FROM 2 OTHER DRS/CC [facility] TO [facility] GI BLEED GI BLEED GI BLEED GI BLEED GI BLEED nose bleed S/O 3 M FU 3 mo COOK SHORT ORDER-P fu/PFM 3:30 S/O ADD'L E ORDERS DR MIRANDA 04/26/22 Reason for Visit Cough Dyspnea MIA (obstructive sleep apnea) Cough Benign essential hypertension Biventricular cardiac pacemaker in situ History of aortic valve replacement History of mitral valve repair Biventricular cardiac pacemaker in situ Debility ESRD (end stage renal disease) on dialysis Supratherapeutic INR History of aortic valve replacement History of mitral valve repair Acute on chronic anemia Epistaxis GI (gastrointestinal bleed) Hyperammonemia Mild cognitive impairment Polyneuropathy Syncope CAD (coronary artery disease) Cardiomyopathy History of cardiac radiofrequency ablation (RFA) HLD (hyperlipidemia) intermediate (current) use of 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 Other specified cardiac dysrhythmias Benign essential hypertension Biventricular cardiac pacemaker in situ History of aortic valve replacement History of mitral valve repair Cardiomyopathy History of cardiac radiofrequency ablation (RFA) Biventricular cardiac pacemaker in situ History of aortic valve replacement History of mitral valve repair Chief Complaint GI BLEED GI BLEED GI BLEED GI BLEED GI BLEED nose bleed S/O 3 M FU 3 mo COOK SHORT ORDER-P fu/PFM 3:30 S/O ADD'L E ORDERS DR MIRANDA 04/26/22 3 M FU 6MO LABS 1YR LABS S/O ADD'L E ORDERS DR MIRANDA 04/26/22 S/O ADD'L E ORDERS DR MIRANDA 04/26/22 SEVERE ANEMIA Reason for Visit Debility ESRD (end stage renal disease) on dialysis Supratherapeutic INR History of aortic valve replacement History of mitral valve repair Acute on chronic anemia Epistaxis GI (gastrointestinal bleed) Hyperammonemia Mild cognitive impairment Polyneuropathy Syncope CAD (coronary artery disease) Cardiomyopathy History of cardiac radiofrequency ablation (RFA) HLD (hyperlipidemia) intermediate (current) use of 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 Other specified cardiac dysrhythmias Benign essential hypertension Biventricular cardiac pacemaker in situ History of aortic valve replacement History of mitral valve repair Cardiomyopathy History of cardiac radiofrequency ablation (RFA) Biventricular cardiac pacemaker in situ History of aortic valve replacement History of mitral valve repair Cough Dyspnea MIA (obstructive sleep apnea) Hematochezia Chief Complaint GI BLEED GI BLEED GI BLEED GI BLEED GI BLEED nose bleed S/O 3 M FU 3 mo COOK SHORT ORDER-P fu/PFM 3:30 S/O ADD'L E ORDERS DR MIRANDA 04/26/22 3 M FU 6MO LABS 1YR LABS S/O ADD'L E ORDERS DR MIRANDA 04/26/22 S/O ADD'L E ORDERS DR MIRANDA 04/26/22 SEVERE ANEMIA SEVERE ANEMIA SEVERE ANEMIA SEVERE ANEMIA SEVERE ANEMIA SEVERE ANEMIA Reason for Visit Debility ESRD (end stage renal disease) on dialysis Supratherapeutic INR History of aortic valve replacement History of mitral valve repair Acute on chronic anemia Epistaxis GI (gastrointestinal bleed) Hyperammonemia Mild cognitive impairment Polyneuropathy Syncope CAD (coronary artery disease) Cardiomyopathy History of cardiac radiofrequency ablation (RFA) 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 Other specified cardiac dysrhythmias Benign essential hypertension Biventricular cardiac pacemaker in situ History of aortic valve replacement History of mitral valve repair Cardiomyopathy History of cardiac radiofrequency ablation (RFA) Biventricular cardiac pacemaker in situ History of aortic valve replacement History of mitral valve repair Cough Dyspnea MIA (obstructive sleep apnea) Hematochezia Cirrhosis Debility ESRD (end stage renal disease) on dialysis GI bleed Hyperkalemia Supratherapeutic INR Acute on chronic anemia Benign essential hypertension History of aortic valve replacement History of mitral valve repair Hyperammonemia Acute metabolic encephalopathy Chief Complaint GI BLEED GI BLEED nose bleed S/O 3 M FU 3 mo COOK SHORT ORDER-P fu/PFM 3:30 S/O ADD'L E ORDERS DR MIRANDA 04/26/22 3 M FU 6MO LABS 1YR LABS S/O ADD'L E ORDERS DR MIRANDA 04/26/22 S/O ADD'L E ORDERS DR MIRANDA 04/26/22 SEVERE ANEMIA SEVERE ANEMIA SEVERE ANEMIA SEVERE ANEMIA SEVERE ANEMIA SEVERE ANEMIA SEVERE ANEMIA HCC SCREENING S/O addl paper order Dr Ferrara 07/28/22 Reason for Visit Acute on chronic ane ryder Debility Epistaxis GI (gastrointestinal bleed) Supratherapeutic INR Hyperammonemia Syncope Cough Dyspnea GI bleed Hematochezia Acute metabolic encephalopathy Acute on chronic anemia Debility GI bleed Hyperammonemia Hyperkalemia Supratherapeutic INR Chief Complaint 3 M FU 3 mo COOK SHORT ORDER-P fu/PFM 3:30 S/O ADD'L E ORDERS DR MIRANDA 04/26/22 3 M FU 6MO LABS 1YR LABS S/O ADD'L E ORDERS DR MIRANDA 04/26/22 S/O ADD'L E ORDERS DR MIRANDA 04/26/22 SEVERE ANEMIA SEVERE ANEMIA SEVERE ANEMIA SEVERE ANEMIA SEVERE ANEMIA SEVERE ANEMIA SEVERE ANEMIA HCC SCREENING S/O addl paper order Dr Ferrara 07/28/22 Reason for Visit Hyperammonemia Syncope Cough Dyspnea GI bleed Hematochezia Acute metabolic encephalopathy Acute on chronic anemia Debility GI bleed Hyperammonemia Hyperkalemia Supratherapeutic INR Chief Complaint 3 M FU 6MO LABS 1YR LABS S/O ADD'L E ORDERS DR MIRANDA 04/26/22 S/O ADD'L E ORDERS DR MIRANDA 04/26/22 SEVERE ANEMIA SEVERE ANEMIA SEVERE ANEMIA SEVERE ANEMIA SEVERE ANEMIA SEVERE ANEMIA SEVERE ANEMIA HCC SCREENING S/O addl paper order Dr Ferrara 07/28/22 S/O addl paper order Dr Ferrara 07/28/22 Reason for Visit Cough Dyspnea GI bleed Hematochezia Acute metabolic encephalopathy Acute on chronic anemia Debility GI bleed Hyperammonemia Hyperkalemia Supratherapeutic INR Chief Complaint S/O addl paper order Dr Ferrara 07/28/22 FU LABSPEC/THREE ORDERS THREE IZABELLA 09-29-22 6 M FU PRIORITY s/o 6 m fu/Ally 2:00 6 m fu/PFM 1:15 s/o Other specified postprocedural states CIRRHOSIS Reason for Visit GI bleed Hyperammonemia Mild cognitive impairment Polyneuropathy Syncope Benign essential hypertension Biventricular cardiac pacemaker in situ History of cardiac radiofrequency ablation (RFA) History of mitral valve repair 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 Biventricular cardiac pacemaker in situ History of atrioventricular chiquita ablation History of cardiac radiofrequency ablation (RFA) Chief Complaint FU LABSPEC/THREE ORDERS THREE IZABELLA 09-29-22 6 M FU PRIORITY s/o 6 m fu/Ally 2:00 6 m fu/PFM 1:15 s/o Other specified postprocedural states CIRRHOSIS s/o Reason for Visit GI bleed Hyperammonemia Mild cognitive impairment Polyneuropathy Syncope Benign essential hypertension Biventricular cardiac pacemaker in situ History of cardiac radiofrequency ablation (RFA) History of mitral valve repair 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 Biventricular cardiac pacemaker in situ History of atrioventricular chiquita ablation History of cardiac radiofrequency ablation (RFA) Chief Complaint FU LABSPEC/THREE ORDERS THREE IZABELLA 09-29-22 6 M FU PRIORITY s/o 6 m fu/Ally 2:00 6 m fu/PFM 1:15 s/o Other specified postprocedural states CIRRHOSIS s/o s/o SYMPTOMATIC ANEMIA Reason for Visit GI bleed Hyperammonemia Mild cognitive impairment Polyneuropathy Syncope Benign essential hypertension Biventricular cardiac pacemaker in situ History of cardiac radiofrequency ablation (RFA) History of mitral valve repair 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 Biventricular cardiac pacemaker in situ History of atrioventricular chiquita ablation History of cardiac radiofrequency ablation (RFA) Anemia requiring transfusions ESRD (end stage renal disease) on 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 Symptomatic anemia Chief Complaint FU LABSPEC/THREE ORDERS THREE IZABELLA 09-29-22 6 M FU PRIORITY s/o 6 m fu/Ally 2:00 6 m fu/PFM 1:15 s/o Other specified postprocedural states CIRRHOSIS s/o s/o SYMPTOMATIC ANEMIA SYMPTOMATIC ANEMIA SYMPTOMATIC ANEMIA SYMPTOMATIC ANEMIA Reason for Visit GI bleed Hyperammonemia Mild cognitive impairment Polyneuropathy Syncope Benign essential hypertension Biventricular cardiac pacemaker in situ History of cardiac radiofrequency ablation (RFA) History of mitral valve repair HLD (hyperlipidemia) intermediate (current) use of 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 Biventricular cardiac pacemaker in situ History of atrioventricular chiquita ablation History of cardiac radiofrequency ablation (RFA) ABLA (acute blood loss anemia) Anemia requiring transfusions Atherosclerotic heart disease of [place] coronary artery without angina pectoris Benign essential hypertension ESRD (end stage renal disease) on dialysis History of mechanical aortic valve replacement History of mitral valve repair 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 Symptomatic anemia GI bleed Chief Complaint LABSPEC/THREE ORDERS THREE IZABELLA 09-29-22 6 M FU PRIORITY s/o 6 m fu/Ally 2:00 6 m fu/PFM 1:15 s/o Other specified postprocedural states CIRRHOSIS s/o s/o SYMPTOMATIC ANEMIA SYMPTOMATIC ANEMIA SYMPTOMATIC ANEMIA SYMPTOMATIC ANEMIA SYMPTOMATIC ANEMIA Reason for Visit Hyperammonemia Mild cognitive impairment Polyneuropathy Syncope Biventricular cardiac pacemaker in situ History of cardiac radiofrequency ablation (RFA) History of mitral valve repair HLD (hyperlipidemia) Biventricular cardiac pacemaker in situ History of atrioventricular chiquita ablation History of cardiac radiofrequency ablation (RFA) ESRD (end stage renal disease) on dialysis History of mechanical aortic valve replacement History of mitral valve repair Liver cirrhosis GI bleed Chief Complaint s/o 6 m fu/Ally 2:00 6 m fu/PFM 1:15 s/o Other specified postprocedural states CIRRHOSIS s/o SYMPTOMATIC ANEMIA SYMPTOMATIC ANEMIA SYMPTOMATIC ANEMIA SYMPTOMATIC ANEMIA SYMPTOMATIC ANEMIA s/o Reason for Visit Biventricular cardia c pacemaker in situ History of cardiac radiofrequency ablation (RFA) History of mitral valve repair HLD (hyperlipidemia) Biventricular cardiac pacemaker in situ History of atrioventricular chiquita ablation History of cardiac radiofrequency ablation (RFA) ESRD (end stage renal disease) on dialysis History of mechanical aortic valve replacement History of mitral valve repair Liver cirrhosis GI bleed Chief Complaint 6 m fu/Ally 2:00 6 m fu/PFM 1:15 s/o Other specified postprocedural states CIRRHOSIS s/o SYMPTOMATIC ANEMIA SYMPTOMATIC ANEMIA SYMPTOMATIC ANEMIA SYMPTOMATIC ANEMIA SYMPTOMATIC ANEMIA s/o 3 [facility] FU EORDER Reason for Visit Biventricular cardia c pacemaker in situ History of cardiac radiofrequency ablation (RFA) History of mitral valve repair HLD (hyperlipidemia) Biventricular cardiac pacemaker in situ History of atrioventricular chiquita ablation History of cardiac radiofrequency ablation (RFA) ESRD (end stage renal disease) on dialysis History of mechanical aortic valve replacement History of mitral valve repair Liver cirrhosis GI bleed Biventricular cardiac pacemaker in situ History of atrioventricular chiquita ablation History of cardiac radiofrequency ablation (RFA) Pleural effusion Chief Complaint s/o Other specified postprocedural states CIRRHOSIS s/o SYMPTOMATIC ANEMIA SYMPTOMATIC ANEMIA SYMPTOMATIC ANEMIA SYMPTOMATIC ANEMIA SYMPTOMATIC ANEMIA s/o 3 [facility] FU EORDER 6 MO FU CVC EXCHANGE FOR DAMAGED ART LUMEN stat labs stat labs Reason for Visit ESRD (end stage gildardo l disease) on dialysis History of mechanical aortic valve replacement History of mitral valve repair Liver cirrhosis GI bleed Biventricular cardiac pacemaker in situ History of atrioventricular chiquita ablation History of cardiac radiofrequency ablation (RFA) Pleural effusion Anemia Problem with dialysis access Chief Complaint s/o Other specified postprocedural states CIRRHOSIS s/o SYMPTOMATIC ANEMIA SYMPTOMATIC ANEMIA SYMPTOMATIC ANEMIA SYMPTOMATIC ANEMIA SYMPTOMATIC ANEMIA s/o 3 [facility] FU EORDER 6 MO FU CVC EXCHANGE FOR DAMAGED ART LUMEN stat labs stat labs WOUND Reason for Visit ESRD (end stage gildardo l disease) on dialysis History of mechanical aortic valve replacement History of mitral valve repair Liver cirrhosis GI bleed Biventricular cardiac pacemaker in situ History of atrioventricular chiquita ablation History of cardiac radiofrequency ablation (RFA) Pleural effusion Anemia Problem with dialysis access Chief Complaint SYMPTOMATIC ANEMIA SYMPTOMATIC ANEMIA SYMPTOMATIC ANEMIA s/o 3 [facility] FU EORDER 6 MO FU CVC EXCHANGE FOR DAMAGED ART LUMEN stat labs stat labs WOUND suture removal and check caths check catheter exchange site 6 M FU Amb Documentation s/o Reason for Visit ESRD (end stage gildardo l disease) on dialysis History of mechanical aortic valve replacement History of mitral valve repair Liver cirrhosis GI bleed Biventricular cardiac pacemaker in situ History of atrioventricular chiquita ablation History of cardiac radiofrequency ablation (RFA) Pleural effusion Anemia Problem with dialysis access ESRD (end stage renal disease) on dialysis Problem with dialysis access Chief Complaint 6 MO FU CVC EXCHANGE FOR DAMAGED ART LUMEN stat labs stat labs WOUND suture removal and check caths check catheter exchange site 6 M FU Amb Documentation s/o 6MO LABS 1YR LABS 6 MO F/U / ALLY 10:00 s/o Reason for Visit Anemia Problem with dialysis access ESRD (end stage renal disease) on dialysis Problem with dialysis access Hyperammonemia Mild cognitive impairment Polyneuropathy Syncope GI bleed Hematochezia Biventricular cardiac pacemaker in situ History of atrioventricular chiquita ablation Cardiomyopathy Biventricular cardiac pacemaker in situ History of mitral valve repair HLD (hyperlipidemia) Cardiomyopathy History of aortic valve replacement History of cardiac radiofrequency ablation (RFA) intermediate (current) use of 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 Other specified cardiac dysrhythmias Benign essential hypertension Chief Complaint 6 M FU Amb Documentation s/o 6MO LABS 1YR LABS 6 MO F/U / ALLY 10:00 s/o CIRRHOSIS OF LIVER Reason for Visit Hyperammonemia Mild cognitive impairment Polyneuropathy Syncope GI bleed Hematochezia Biventricular cardiac pacemaker in situ History of atrioventricular chiquita ablation Cardiomyopathy Biventricular cardiac pacemaker in situ History of mitral valve repair HLD (hyperlipidemia) Cardiomyopathy History of aortic valve replacement History of cardiac radiofrequency ablation (RFA) intermediate (current) use of 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 Other specified cardiac dysrhythmias Benign essential hypertension Chief Complaint 6 MO F/U / ALLY 10:00 s/o CIRRHOSIS OF LIVER 4 M FU 3 m PPM check 4 M FU Reason for Visit Biventricular cardia c pacemaker in situ History of atrioventricular chiquita ablation Cardiomyopathy Biventricular cardiac pacemaker in situ History of mitral valve repair HLD (hyperlipidemia) Cardiomyopathy History of aortic valve replacement History of cardiac radiofrequency ablation (RFA) intermediate (current) use of 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 Other specified cardiac dysrhythmias Benign essential hypertension Essential tremor Mild cognitive impairment Polyneuropathy Syncope Biventricular cardiac pacemaker in situ History of atrioventricular chiquita ablation Cardiomyopathy History of cardiac radiofrequency ablation (RFA) Dyspnea Chief Complaint 3 m PPM check 4 M FU Pacer Check Remote 6 m fu / JHR @ 11:30 6 m fu / ALLY @ 11 CIRRHOSIS, SCREENING FOR HCC Reason for Visit Biventricular cardia c pacemaker in situ History of atrioventricular chiquita ablation Cardiomyopathy History of cardiac radiofrequency ablation (RFA) Dyspnea Biventricular cardiac pacemaker in situ History of atrioventricular chiquita ablation Cardiomyopathy Biventricular cardiac pacemaker in situ History of mitral valve repair Benign essential hypertension CAD (coronary artery disease) Cardiomyopathy History of aortic valve replacement History of cardiac radiofrequency ablation (RFA) HLD (hyperlipidemia) Other specified cardiac dysrhythmias Chief Complaint Admit Date 10 mo fu November 25, 2024 1: 45pm EORDER November 25, 2024 2: 44pm DIALYSIS CATHETER CHECK December 16 2:27pm DIALYSIS CATHETER CHECK December 16 7:36pm DIALYSIS PORT LEAKING December 17, 2024 3:59pm MADRID CIRRHOSIS, HCC SCREEN December 8:45am D63.1 January 22, 2025 2:00 pm Pacer Check Remote January 28, 2025 9:0 0am 3 mos COOK SHORT ORDER-P f/u / JHR @ 10:30 January 10:02am 6 m fu / ALLY @ 10 January 28, 2025 10: 03am GI BLEED, PNEUMONIA February 12, 2025 10: 15pm Reason for Visit Admit Date Essential tremor November 25, 2024 1: 45pm Hyperammonemia November 25, 2024 1: 45pm Mild cognitive impairment November 25, 2 025 1:45pm Polyneuropathy November 25, 2024 1: 45pm Syncope November 25, 2024 1: 45pm Biventricular cardiac pacemaker in situ January 28, 2025 10:02am Cardiomyopathy January 28, 2025 10: 02am History of cardiac radiofrequency ablati on (RFA) January 28, 2025 10:02am Biventricular cardiac pacemaker in situ January 28, 2025 10:03am History of mitral valve repair January 10:03am Benign essential hypertension January 10:03am CAD (coronary artery disease) January 10:03am Cardiomyopathy January 28, 2025 10: 03am History of aortic valve replacement [facility] 2024 10:03am History of cardiac radiofrequency ablati on (RFA) January 28, 2025 10:03am HLD (hyperlipidemia) January 28, 2025 10 :03am Other specified cardiac dysrhythmias [facility] 2024 10:03am Chief Complaint Admit Date DIALYSIS CATHETER CHECK December 16 2:27pm DIALYSIS CATHETER CHECK December 16 7:36pm DIALYSIS PORT LEAKING December 17, 2024 3:59pm MADRID CIRRHOSIS, HCC SCREEN December 8:45am D63.1 January 22, 2025 2:00 pm Pacer Check Remote January 28, 2025 9:0 0am 3 mos COOK SHORT ORDER-P f/u / JHR @ 10:30 January 10:02am 6 m fu / ALLY @ 10 January 28, 2025 10: 03am GI BLEED, PNEUMONIA February 12, 2025 10: 15pm Hospital FU March 17, 2025 2:5 1pm HYPEREMESIS March 23, 2025 1:53pm Hospital Follow up March 25, 2025 9:12am Reason for Visit Admit Date Biventricular cardiac pacemaker in situ January 28, 2025 10:02am Cardiomyopathy January 28, 2025 10: 02am History of cardiac radiofrequency ablati on (RFA) January 28, 2025 10:02am Biventricular cardiac pacemaker in situ January 28, 2025 10:03am History of mitral valve repair January 10:03am Benign essential hypertension January 10:03am CAD (coronary artery disease) January 10:03am Cardiomyopathy January 28, 2025 10: 03am History of aortic valve replacement [facility] 2024 10:03am History of cardiac radiofrequency ablati on (RFA) January 28, 2025 10:03am HLD (hyperlipidemia) January 28, 2025 10 :03am Other specified cardiac dysrhythmias Mar [facility] 2024 10:03am Early satiety March 17, 2025 2:5 1pm Emesis, persistent March 17, 2025 2:5 1pm Necrosis of colon March 17, 2025 2:5 1pm 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 gastropathy March 172024 2:51pm Abnormal CT scan, chest March 25, 2025 9: 12am Cardiomyopathy March 25, 2025 9:12am Dyspnea March 25, 2025 9:12am MIA (obstructive sleep apnea) March 25, 9:12am Chief Complaint Admit Date DIALYSIS CATHETER CHECK December 16 2:27pm DIALYSIS CATHETER CHECK December 16 7:36pm DIALYSIS PORT LEAKING December 17, 2024 3:59pm MADRID CIRRHOSIS, HCC SCREEN December 8:45am D63.1 January 22, 2025 2:00 pm Pacer Check Remote January 28, 2025 9:0 0am 3 mos COOK SHORT ORDER-P f/u / JHR @ 10:January 10:02am 6 m fu / ALLY @ January 28, 2025 10: 03am GI BLEED, PNEUMONIA February 12, 2025 10: 15pm Hospital FU March 17, 2025 2:5 1pm HYPEREMESIS March 23, 2025 1:53pm Hospital Follow up March 25, 2025 9:12am R06.00 - Dyspnea, unspecified April 08, 2025 7:52am Chief Complaint Admit Date MADRID CIRRHOSIS, HCC SCREEN December 8:45am D63.1 January 22, 2025 2:00 pm Pacer Check Remote January 28, 2025 9:0 0am 3 mos COOK SHORT ORDER-P f/u / JHR @ 10:January 10:02am 6 m fu / ALLY @ 10 January 28, 2025 10: 03am GI BLEED, PNEUMONIA February 12, 2025 10: 15pm Hospital FU March 17, 2025 2:5 1pm HYPEREMESIS March 23, 2025 1:53pm Hospital Follow up March 25, 2025 9:12am R06.00 - Dyspnea, unspecified April 08, 2025 7:52am lower extre April 18, 2025 5:59p m Chief Complaint Admit Date D63.1 January 22, 2025 2:00 pm Pacer Check Remote January 28, 2025 9:0 0am 3 mos COOK SHORT ORDER-P f/u / JHR @ 10:30 January 10:02am 6 m fu / ALLY @ 10 January 28, 2025 10: 03am GI BLEED, PNEUMONIA February 12, 2025 10: 15pm Hospital FU March 17, 2025 2:5 1pm HYPEREMESIS March 23, 2025 1:53pm Hospital Follow up March 25, 2025 9:12am R06.00 - Dyspnea, unspecified April 08, 2025 7:52am lower extre April 18, 2025 5:59p m R06.00 - Dyspnea, unspecified / PAIN IN R THIGH April 29, 2025 1:50pm Chief Complaint Admit Date Pacer Check Remote January 28, 2025 9:0 0am 3 mos COOK SHORT ORDER-P f/u / JHR @ 10:January 10:02am 6 m fu / ALLY @ 10 January 28, 2025 10: 03am GI BLEED, PNEUMONIA February 12, 2025 10: 15pm Hospital FU March 17, 2025 2:5 1pm HYPEREMESIS March 23, 2025 1:53pm Hospital Follow up March 25, 2025 9:12am R06.00 - Dyspnea, unspecified April 08, 2025 7:52am R06.00 - Dyspnea, unspecified April 08, 2025 8:15am lower extre April 18, 2025 5:59p m R06.00 - Dyspnea, unspecified / PAIN IN R THIGH April 29, 2025 1:50pm 6MO LABS May 27, 2025 12:45 pm 1 YEAR LABS May 27, 2025 12:51 pm Reason for Visit Admit Date Biventricular cardiac pacemaker in situ January 28, 2025 10:02am Cardiomyopathy January 28, 2025 10: 02am History of cardiac radiofrequency ablati on (RFA) January 28, 2025 10:02am Biventricular cardiac pacemaker in situ January 28, 2025 10:03am History of mitral valve repair January 10:03am Benign essential hypertension January 10:03am CAD (coronary artery disease) January 10:03am Cardiomyopathy January 28, 2025 10: 03am History of aortic valve replacement [facility] 20[facility] 10:03am History of cardiac radiofrequency ablati on (RFA) January 28, 2025 10:03am HLD (hyperlipidemia) January 28, 2025 10 :03am Other specified cardiac dysrhythmias Mar 2024 10:03am Early satiety March 17, 2025 2:5 1pm Emesis, persistent March 17, 2025 2:5 1pm Necrosis of colon March 17, 2025 2:5 1pm 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 gastropathy March 172024 2:51pm Abnormal CT scan, chest March 25, 2025 9: 12am Cardiomyopathy March 25, 2025 9:12am Dyspnea March 25, 2025 9:12am MIA (obstructive sleep apnea) March 25, 9:12am GI bleed May 27, 2025 12:45 pm Hematochezia May 27, 2025 12:45 pm Reason for Referral Specialty Diagnoses / Procedures Referred By Contac t Referred To Contact Diagnoses Cirrhosis of liver without ascites, unspecified hepatic cirrhosis type Procedures US ABDOMEN RUQ/LIVER/GB Kelby Chance APRN-CUSTOMER ASSISTANT [address] [place] [address] Referral ID Status Reason Start Date Expiration Date V isits Requested Visits Authorized [id number] New Request 12/19/2021 01/13/2023 1 1 Specialty Diagnoses / Procedures Referred By Contac t Referred To Contact Diagnoses Cirrhosis of liver without ascites, unspecified hepatic cirrhosis type Procedures US ABDOMEN RUQ/LIVER/GB Vaishnavi Fry, DO [address] [place] [address] Referral ID Status Reason Start Date Expiration Date V isits Requested Visits Authorized [id number] New Request 07/14/2022 08/08/2023 1 1 Specialty Diagnoses / Procedures Referred By Contac t Referred To Contact Diagnoses Cirrhosis of liver without ascites, unspecified hepatic cirrhosis type Procedures US ABDOMEN LIVER DOPPLER Kelby Chance, BUSINESS SERVICES SPECIALIST SALES-CUSTOMER ASSISTANT [address] [place] [address] Referral ID Status Reason Start Date Expiration Date V isits Requested Visits Authorized [id number] New Request 01/15/2023 02/09/2024 1 1 Specialty Diagnoses / Procedures Referred By Contac t Referred To Contact Diagnoses Other cirrhosis of liver Procedures CT ABDOMEN WITH AND WITHOUT CONTRAST AR CT SCAN OF ABDOMEN COMBO Vaishnavi Fry, DO [address] [place] [address] Referral ID Status Reason Start Date Expiration Date V isits Requested Visits Authorized [id number] New Request 07/13/2023 08/06/2024 1 1 Specialty Diagnoses / Procedures Referred By Contac t Referred To Contact Diagnoses SSS (sick sinus syndrome) PAF (paroxysmal atrial fibrillation) Procedures ECHOCARDIOGRAM LIMITED/FOLLOWUP AR ECHO HEART XTHORACIC,LIMITED AR DOPPLER ECHO HEART,LIMITED,F/U AR DOPPLER COLOR FLOW VELOCITY MAP Carla Damon, MBBS [address] [place] [address] Referral ID Status Reason Start Date Expiration Date V isits Requested Visits Authorized [id number] New Request 03/17/2024 04/11/2025 1 1 Specialty Diagnoses / Procedures Referred By Contac t Referred To Contact Procedures ECG Aileen Phoenix, BUSINESS SERVICES SPECIALIST SALES-CUSTOMER ASSISTANT [address] [place] [address] Referral ID Status Reason Start Date Expiration Date V isits Requested Visits Authorized [id number] New Request 04/02/2024 04/27/2025 1 1 Specialty Diagnoses / Procedures Referred By Contac t Referred To Contact Diagnoses Other cirrhosis of liver Procedures US ABDOMEN RUQ/LIVER/GB Vaishnavi Fry, DO [address] [place] [address] Referral ID Status Reason Start Date Expiration Date V isits Requested Visits Authorized [id number] New Request 04/16/2024 05/11/2025 1 1 Specialty Diagnoses / Procedures Referred By Contac t Referred To Contact Diagnoses Other cirrhosis of liver Cirrhosis of liver without ascites, unspecified hepatic cirrhosis type Frailty Procedures US ABDOMEN RUQ/LIVER/GB Kelby Chance, BUSINESS SERVICES SPECIALIST SALES-CUSTOMER ASSISTANT [address] [place] [address] Referral ID Status Reason Start Date Expiration Date V isits Requested Visits Authorized [id number] New Request 12/05/2023 12/29/2024 1 1 Specialty Diagnoses / Procedures Referred By Contac t Referred To Contact Diagnoses Other cirrhosis of liver Procedures US ABDOMEN RUQ/LIVER/GB Kelby Chance, BUSINESS SERVICES SPECIALIST SALES-CUSTOMER ASSISTANT [address] [place] [phone] Referral ID Status Reason Start Date Expiration Date V isits Requested Visits Authorized [id number] New Request 10/22/2024 11/16/2025 1 1 Specialty Diagnoses / Procedures Referred By Contac t Referred To Contact Procedures Trina No, BUSINESS SERVICES SPECIALIST SALES-CUSTOMER ASSISTANT [address] [place], [place] [id number] Referral ID Status Reason Start Date Expiration Date V isits Requested Visits Authorized [id number] New Request 12/19/2024 01/13/2026 1 1 Specialty Diagnoses / Procedures Referred By Contac t Referred To Contact Procedures NO PHARMACOLOGICAL DVT PROPHYLAXIS Malcom Chicas MD [address] [place] [phone] Referral ID Status Reason Start Date Expiration Date V isits Requested Visits Authorized [id number] New Request 12/18/2024 01/12/2026 1 1 Specialty Diagnoses / Procedures Referred By Contac t Referred To Contact Procedures DVT/VTE RISK ASSESSMENT Malcom Chicas MD [address] [place] [address] Referral ID Status Reason Start Date Expiration Date V isits Requested Visits Authorized [id number] New Request 12/18/2024 01/12/2026 1 1 Additional Source Comments (unrecognized sect ion and content) No Status Records FoundNo Status Records FoundNo Status Records FoundNo Status Records Found INFORMATION SOURCE (unrecogn ized section and content) DATE CREATED AUTHOR 06/25/2021 [employer] DATE CREATED AUTHOR AUTHOR'S ORGANIZ ATION 12/26/2021 [facility] DATE CREATED AUTHOR AUTHOR'S ORGANIZ ATION 04/18/2025 [facility] DATE CREATED AUTHOR AUTHOR'S ORGANIZ ATION 06/11/2025 [facility] Goals (unrecognized section and content) Goals may be documented in a n alternate sectionGoals may be documented in an alternate sectionGoals may be documented in an alternate sectionGoals may be documented in an alternate sectionGoals may be documented in an alternate sectionGoals may be documented in an alternate sectionGoals may be documented in an alternate sectionGoals may be documented in an alternate sectionGoals may be documented in an alternate sectionGoals may be documented in an alternate sectionGoals may be documented in an alternate sectionGoals may be documented in an alternate sectionGoals may be documented in an alternate sectionGoals may be documented in an alternate sectionGoals may be documented in an alternate sectionGoals may be documented in an alternate sectionGoals may be documented in an alternate sectionGoals may be documented in an alternate sectionGoals may be documented in an alternate sectionGoals may be documented in an alternate sectionGoals may be documented in an alternate sectionGoals may be documented in an alternate sectionGoals may be documented in an alternate sectionGoals may be documented in an alternate section Reason for Visit (unrecogniz ed section and content) Specialty Diagnoses / Procedures Referred By Pricila anthony Referred To Contact Diagnoses Cirrhosis of liver without ascites, unspecified hepatic cirrhosis type Procedures US ABDOMEN RUQ/LIVER/GB Kelby Chance, BUSINESS SERVICES SPECIALIST SALES-CUSTOMER ASSISTANT [address] [place] [address] Referral ID Status Reason Start Date Expiration Date V isits Requested Visits Authorized [id number] New Request 12/19/2021 01/13/2023 1 1 Reason Comments Follow-up Reason Comments Follow-up Cirrhosis Reason Comments Cystoscopy Specialty Diagnoses / Procedures Referred By Contac t Referred To Contact Urology Diagnoses Abnormal radiologic findings on diagnostic imaging of renal pelvis, ureter, or bladder Procedures AR CYSTOURETHROSCOPY FOR DIAGNOSIS Mingo Shine MD [address] [place] [address] Referral ID Status Reason Start Date Expiration Date V isits Requested Visits Authorized [id number] New Request 02/06/2023 03/02/2024 1 1 Reason Onset Date Comments Medication Refill 10/03/2023 Specialty Diagnoses / Procedures Referred By Contac t Referred To Contact Diagnoses SSS (sick sinus syndrome) PAF (paroxysmal atrial fibrillation) Procedures ECHOCARDIOGRAM LIMITED/FOLLOWUP AR ECHO HEART XTHORACIC,LIMITED AR DOPPLER ECHO HEART,LIMITED,F/U AR DOPPLER COLOR FLOW VELOCITY MAP Carla Damon MBBS [address] [place] [address] Referral ID Status Reason Start Date Expiration Date V isits Requested Visits Authorized [id number] New Request 03/17/2024 04/11/2025 1 1 Specialty Diagnoses / Procedures Referred By Contac t Referred To Contact Diagnoses SSS (sick sinus syndrome) SSS (sick sinus syndrome) [I49.5] Procedures AR RMVL IMPLTBL DFB PLSE GEN W/REPL PLSE GEN 1 LEAD ICD GENERATOR CHANGEOUT Ronnie Ferrari MD [address] [facility] [address] [place] [address] [facility] [address] [place] [address] Referral ID Status Reason Start Date Expiration Date Visits Re quested Visits Authorized [id number] 1 1 Reason Comments Follow-up Patient's state s he gets tired often. Reason Comments Cirrhosis Cirrhosis of liver w ithout ascites, unspecified hepatic cirrhosis type Follow-up Reason Comments Follow-up Pt is being seen for 6 month follow up. Specialty Diagnoses / Procedures Referred By Contac t Referred To Contact Diagnoses Issues with HD Carly Marquez MD [address] [place] [address] [facility] [address] [place] [address] Referral ID Status Reason Start Date Expiration Date Visits Re quested Visits Authorized [id number] 1 Reason Comments Follow-up Pt's states he was in the hospital at [facility] in 02/13/2025- 03/09/2025 for pneumonia, rectal bleeding, cat scan of abdomen and gastric emptying test done at [place]. Care Teams (unrecognized sec tion and content) Wood Science Professor Relationship Specialty Start Date End Date Vinny Atkinson MD [address] [place] [phone] PCP - General Family Medicine 02/26/21 Jeff Grullon MD [address] [facility] [place] [phone] Cardiovascular Medicine 05/19/13 Karthikeyan Turner MB/ASAD [address] [place], [place] [address] Oncologist Hematology 08/28/21 Sharron Calderon DO [address] [phone] Auditor Tax Nephrology 08/28/21 Isaac Min MD [address] [place] [address] Handcrew Foreman Pulmonary Disease 08/28/21 Wood Science Professor Relationship Specialty Start Date End Date Vinny Atkinson MD [address] [place] [address] PCP - General Family Medicine 02/26/21 Jeff Grullon MD [address] [facility] [place] [phone] Cardiovascular Disease 05/19/13 Karthikeyan Turner MB/CHB [address] [place], [place] [phone] Oncologist Hematology 08/28/21 Sharron Calderon DO [address] [place] [phone] Auditor Tax Nephrology 08/28/21 Isaac Min MD [address] [place] [phone] Handcrew Foreman Pulmonary Disease 08/28/21 Team Status: Active Member Role Status Dates Dr. Vinny Atkinson MD Family Provider Active Dr. Castro Ferrara DO Primary Care Provider Active Team Status: Inactive Member Role Status Dates Dr. Vinny Atkinson MD Referring Provider Active Dr. Timmy Miranda MD Attending Provider Active Dr. Castro Ferrara DO Primary Care Provider Active Team Status: Inactive Member Role Status Dates Dr. Vinny Atkinson MD Referring Provider Active Dr. Jeff Grullon MD Attending Provider Active Dr. Castro Ferrara DO Primary Care Provider Active Team Status: Inactive Member Role Status Dates Dr. Vinny Atkinson MD Referring Provider Active Isis Arce Attending Provider Active Dr. Castro Ferrara DO Primary Care Provider Active Team Status: Inactive Member Role Status Dates Dr. Vinny Atkinson MD Referring Provider Active Deja Jewell DRYWALL SANDER, DRYWALL SANDER-C Attending Provider Active Dr. Castro Ferrara DO Primary Care Provider Active Team Status: Active Member Role Status Dates Dr. Castro Ferrara DO Primary Care Provider Active Dr. Jeff Grullon MD Attending Provider Active Team Status: Inactive Member Role Status Dates Dr. Castro Ferrara DO Primary Care Provider Active Dr. Jeff Grullon MD Attending Provider Active Team Status: Inactive Member Role Status Dates Dr. Vinny Atkinson MD Primary Care Provider, Family Mn ovider Active Dr. Jeff Grullon MD Attending Provider, Referring Provider Active Dr. Karthikeyan Turner MD Other Provider Active Dr. Pedro Melton MD Other Provider Active LETICIA SUAREZ Other Provider Active Dr. Sharron Calderon DO Other Provider Active MERON LAMA Other Provider Active Dr. Timmy Miranda MD Other Provider Active ANG DAVIS Other Provider Active Dr. Castro Ferrara , DO Other Provider Active Team Status: Inactive Member Role Status Dates Dr. Castro Ferrara , DO Primary Care Provider Active Dr. Jeff Grullon MD Attending Provider, Referring Provider Active Dr. Kody Zheng , DO Other Provider Active Dr. Vinny Atkinson MD Other Provider Active Team Status: Inactive Member Role Status Dates Dr. Castro Ferrara , DO Primary Care Provider Active Dr. Jeff Grullon MD Attending Provider, Referring Provider Active Dr. Kody Zheng , DO Other Provider Active Dr. Vinny Atkinson MD Other Provider Active Dr. Timmy Miranda MD Other Provider Active Team Status: Active Member Role Status Dates Dr. Castro Ferrara , DO Primary Care Provider Active Dr. Jeff Grullon MD Attending Provider, Referring Provider Active Dr. Kody Zheng , DO Other Provider Active Dr. Vinny Atkinson MD Other Provider Active Dr. Timmy Miranda MD Other Provider Active ANG DAVIS Other Provider Active Team Status: Active Member Role Status Dates Dr. Castro Ferrara DO Primary Care Provider Active ANG DAVIS Attending Provider, Referring Provide r Active Team Status: Inactive Member Role Status Dates Dr. Castro Ferrara , DO Primary Care Provider Active Dr. Jeff Grullon MD Attending Provider, Referring Provider Active Team Status: Inactive Member Role Status Dates Dr. Castro Ferrara , DO Primary Care Provider Active ANG DAVIS Attending Provider, Referring Provide r Active Team Status: Inactive Member Role Status Dates Dr. Castro Ferrara , DO Primary Care Provider Active Dr. Jeff Grullon MD Attending Provider, Referring Provider Active Dr. Kody Zheng , DO Other Provider Active Dr. Vinny Atkinson MD Other Provider Active Dr. Timmy Miranda MD Other Provider Active ANG DAVIS Other Provider Active Wood Science Professor Relationship Specialty Start Date End Date Vinny Atkinson MD [address] [place] [phone] PCP - General Family Medicine 02/26/21 Jeff Grullon MD [address] [facility] [place] [phone] Cardiovascular Disease 05/19/13 Karthikeyan Turner MB/CHB [address] [place] [address] Oncologist Hematology 08/28/21 Sharron Calderon DO [address] [place] [phone] Auditor Tax Nephrology 08/28/21 Isaac Min MD [address] [place] [address] Handcrew Foreman Pulmonary Disease 08/28/21 Team Status: Inactive Member Role Status Dates Dr. Vinny Atkinson MD Referring Provider Active Isis Arce Active Dr. Castro Ferrara , DO Primary Care Provider Active Dr. Jeff Grullon MD Attending Provider Active Team Status: Active Member Role Status Dates Dr. Castro Ferrara , DO Primary Care Provider Active Dr. Jeff Grullon MD Attending Provider, Referring Provider Active Dr. Kody Zheng , DO Other Provider Active Dr. Vinny Atkinson MD Other Provider Active Dr. Timmy Miranda MD Other Provider Active ANG DAVIS Other Provider Active MERON LAMA Other Provider Active Team Status: Active Member Role Status Dates Dr. Castro Ferrara , DO Primary Care Provider Active Claudio Garrison MD Emergency Provider Active Dr. Karthikeyan Rothman MD Admit Provider, Attending Pro vider Active Team Status: Active Member Role Status Dates Dr. Castro Ferrara , DO Primary Care Provider Active Claudio Garrison MD Emergency Provider Active Dr. Karthikeyan Rothman MD Admit Provider, Attending Provider, Other Provider Active Team Status: Active Member Role Status Dates Dr. Castro Ferrara , DO Primary Care Provider Active Claudio Garrison MD Emergency Provider Active Dr. Karthikeyan Rothman MD Admit Provider, Other Provide r Active Dr. Kody Zheng , DO Attending Provider, Other Prov ider Active Dr. Sharron Calderon , DO Other Provider Active Dr. Mimi Centeno MD Other Provider Active Team Status: Active Member Role Status Dates Dr. Castro Ferrara , DO Primary Care Provider Active Dr. Kody Zheng , DO Attending Provider Active Team Status: Active Member Role Status Dates Dr. Castro Ferrara , DO Primary Care Provider Active Claudio Garrison MD Emergency Provider Active Dr. Karthikeyan Rothman MD Admit Provider, Other Provide r Active Dr. Kody Zheng , DO Other Provider Active Dr. Sharron Calderon , DO Other Provider Active Dr. Mimi Centeno MD Attending Provider, Other Provid er Active Team Status: Inactive Member Role Status Dates Dr. Castro Ferrara , DO Primary Care Provider Active Claudio Garrison MD Emergency Provider Active Dr. Karthikeyan Rothman MD Admit Provider, Other Provide r Active Dr. Kody Zheng , DO Other Provider Active Dr. Sharron Calderon , DO Other Provider Active Dr. Mimi Centeno MD Attending Provider Active Team Status: Active Member Role Status Dates Dr. Castro Ferrara , DO Primary Care Provider, Attendin g Provider Active Team Status: Inactive Member Role Status Dates Dr. Castro Ferrara , DO Primary Care Provider, Attendin g Provider Active Team Status: Inactive Member Role Status Dates Dr. Castro Ferrara , DO Primary Care Provider Active Dr. Jeff Grullon MD Attending Provider, Referring Provider Active Dr. Kody Zheng , DO Other Provider Active Dr. Vinny Atkinson MD Other Provider Active Dr. Timmy Miranda MD Other Provider Active ANG DAVIS Other Provider Active MERON LAMA Other Provider Active Team Status: Inactive Member Role Status Dates Dr. Castro Ferrara , DO Primary Care Provider, Referrin g Provider Active Isis Arce Active Dr. Niels Flores MD Attending Provider Active Team Status: Active Member Role Status Dates Dr. Castro Ferrara , DO Primary Care Provider Active Claudio Garrison MD Emergency Provider Active Dr. Karthikeyan Rothman MD Admit Provider, Other Provide r Active Dr. Kody Zheng , DO Attending Provider, Other Prov ider Active Dr. Sharron Calderon , DO Other Provider Active Dr. Mimi Centeno MD Referring Provider, Other Provid er Active Team Status: Active Member Role Status Dates Dr. Castro Ferrara , DO Primary Care Provider Active Dr. Kody Zheng , DO Attending Provider Active Dr. Mimi Centeno MD Referring Provider Active Team Status: Inactive Member Role Status Dates Dr. Castro Ferrara DO Primary Care Provider, Referrin g Provider Active Sue Roberts DRYWALL SANDER, DRYWALL SANDER-C Attending Provider Active Team Status: Inactive Member Role Status Dates Dr. Castro Ferrara DO Primary Care Provider Active Sue Roberts DRYWALL SANDER, DRYWALL SANDER-C Attending Provider, Referrin g Provider Active Wood Science Professor Relationship Specialty Start Date End Date Castro Ferrara DO [address] [place] [address] [place] [address] PCP - General Family Medicine 02/03/23 Jeff Grullon MD [address] [facility] [address] [place] [address] Cardiovascular Disease 05/19/13 Karthikeyan Turner MB/CHB [address] [facility] [place] [address] Oncologist Hematology 08/28/21 Sharron Calderon DO [address] [facility] [address] Auditor Tax Nephrology 08/28/21 Isaac Min MD [address] [place] [address] Handcrew Foreman Pulmonary Disease 08/28/21 Team Status: Inactive Member Role Status Dates Dr. Castro Ferrara DO Primary Care Provider, Referrin g Provider Active Deja Jewell DRYWALL SANDER, DRYWALL SANDER-C Attending Provider Active Team Status: Inactive Member Role Status Dates Dr. Castro Ferrara DO Primary Care Provider, Referrin g Provider Active Dr. Ford Wen MD Attending Provider Active Team Status: Active Member Role Status Dates Dr. Castro Ferrara DO Primary Care Provider Active Dr. Ford Wen MD Attending Provid er, Referring Provider, Other Provider Active Team Status: Inactive Member Role Status Dates Dr. Castro Ferrara DO Primary Care Provider Active Dr. Ford Wen MD Attending Provider, Referring Provider Active Team Status: Inactive Member Role Status Dates Dr. Castro Ferrara , DO Primary Care Provider Active Dr. Matt Palafox , DO Emergency Provider Active Team Status: Inactive Member Role Status Dates Dr. Castro Ferrara , DO Primary Care Provider, Referrin g Provider Active Dr. Timmy Miranda MD Attending Provider Active Team Status: Inactive Member Role Status Dates Dr. Castro Ferrara DO Primary Care Provider, Referrin g Provider Active Trina KEMP, PA-C Attending Provider Active Team Status: Active Member Role Status Dates Dr. Castro Ferrara DO Primary Care Provider Active Aniya Box Attending Provider Active Team Status: Inactive Member Role Status Dates Dr. Castro Ferrara DO Primary Care Provider Active Dr. Kody Zheng DO Other Provider Active Dr. Vinny Atkinson MD Other Provider Active Dr. Timmy Miranda MD Other Provider Active ANG DAVIS Other Provider Active MERON LAMA Other Provider Active Dr. Niels Flores MD Attending Provider, Referring Pro vider Active Team Status: Inactive Member Role Status Dates Dr. Castro Ferrara , DO Primary Care Provider Active Dr. Matt Palafox DO Attending Provider, Emergency P nelly Active Wood Science Professor Relationship Specialty Start Date End Date Castro Ferrara DO [address] [place] [address] [place] [phone] PCP - General Family Medicine 02/03/23 Jeff Grullon MD [address] [facility] [place] [phone] Cardiovascular Disease 05/19/13 Karthikeyan Turner MB/CHB [address] [place], [place] [phone] Oncologist Hematology 08/28/21 Sharron Calderon DO [address] [place] [phone] Auditor Tax Nephrology 08/28/21 Isaac Min MD [address] [place] [address] Handcrew Foreman Pulmonary Disease 08/28/21 Team Status: Inactive Member Role Status Dates Dr. Castro Ferrara , Primary Care Provider, Referrin g Provider Active Esa Mckeon DRYWALL SANDER, DRYWALL SANDER-C Attending Provider Active Team Status: Inactive Member Role Status Dates Dr. Castro Ferrara DO Primary Care Provider, Referrin g Provider Active Dr. Karthikeyan Turner MD Attending Provider Active Team Status: Active Member Role Status Dates Dr. Karthikeyan Turner MD Attending Provider Active Dr. Vinny Atkinson MD Primary Care Provi demetri, Family Provider, Referring Provider Active Dr. Jeff Grullon MD Other Provider Active Team Status: Inactive Member Role Status Dates Dr. Castro Ferrara DO Primary Care Prov ider, Attending Provider, Referring Provider Active Team Status: Inactive Member Role Status Dates Dr. Castro Ferrara DO Primary Care Provider Active ANG DAVIS Attending Provider Active Wood Science Professor Relationship Specialty Start Date End Date Castro Ferrara DO [address] [place] [address] [place] [address] PCP - General Family Medicine 02/03/23 Jeff Grullon MD [address] [facility] [place] [address] Cardiovascular Disease 05/19/13 Karthikeyan Turner MB/ASAD [address] [place] [address] Oncologist Hematology 08/28/21 Sharron Calderon DO [address] [address] Auditor Tax Nephrology 08/28/21 Isaac Min MD [address] [place] [address] Handcrew Foreman Pulmonary Disease 08/28/21 Team Status: Inactive Member Role Status Dates Dr. Castro Ferrara DO Primary Care Provider, Referrin g Provider Active Dr. Isaac Min MD Attending Provider Active Team Status: Inactive Member Role Status Dates Dr. Castro Ferrara DO Primary Care Provider, Referrin g Provider Active Isis Arce Attending Provider Active Team Status: Inactive Member Role Status Dates Dr. Castro Ferrara DO Primary Care Provider Active Dr. Niels Flores MD Attending Provider Active Team Status: Inactive Member Role Status Dates Dr. Castro Ferrara DO Primary Care Provider Active MERON LAMA Attending Provider, Referring Provider Active Wood Science Professor Relationship Specialty Start Date End Date Castro Ferrara DO [address] [place] [address] PCP - General Family Medicine 02/03/23 Jeff Grullon MD Cardiovascular Disease 05/19/13 Karthikeyan Turner MD [address] [place] [place] [id number] Oncologist Hematology 08/28/21 Sharron Calderon DO [address] [place] [address] Auditor Tax Nephrology 08/28/21 Isaac Min MD [address] [place] [address] Handcrew Foreman Pulmonary Disease 08/28/21 Wood Science Professor Relationship Specialty Start Date End Date Castro Ferrara DO [address] [place] [address] [place] [phone] PCP - General Family Medicine 02/03/23 Karthikeyan Turner MD [address] [place] [place] [id number] Oncologist Hematology 08/28/21 Sharron Calderon DO [address] [place] [phone] Auditor Tax Nephrology 08/28/21 Isaac Min MD [address] [place] [phone] Handcrew Foreman Pulmonary Disease 08/28/21 Niels Flores MD [address] [place] [phone] Cardiovascular Disease 04/02/24 Wood Science Professor Relationship Specialty Start Date End Date Castro Ferrara DO [address] [place] [address] [place] [phone] PCP - General Family Medicine 02/03/23 Karthikeyan Turner MD [address], [place] [phone] Oncologist Hematology 08/28/21 Sharron Calderon DO [address] [place] [phone] Auditor Tax Nephrology 08/28/21 Isaac Min MD [address] [place] [phone] Handcrew Foreman Pulmonary Disease 08/28/21 Niels Flores MD [address] [facility] [place] [address] Cardiovascular Disease 04/02/24 Wood Science Professor Relationship Specialty Start Date End Date Castro Ferrara DO [address] [place] [address] PCP - General Family Medicine 02/03/23 Jeff Grullon MD [address] [facility] [place] [address] Cardiovascular Disease 05/19/13 Karthikeyan Turner MB/CHB [address] [place], [place] [phone] Oncologist Hematology 08/28/21 Sharron Calderon DO [address] [facility] [place] [phone] Auditor Tax Nephrology 08/28/21 Isaac Min MD [address] [place] [address] Handcrew Foreman Pulmonary Disease 08/28/21 Wood Science Professor Relationship Specialty Start Date End Date Castro Ferrara DO [address] [place] [address] [place] [address] PCP - General Family Medicine 02/03/23 Karthikeyan Turner MD [address] [place] [place] [address] Oncologist Hematology 08/28/21 Sharron Calderon DO [address] [place] [phone] Auditor Tax Nephrology 08/28/21 Isaac Min MD [address] [place] [phone] Handcrew Foreman Pulmonary Disease 08/28/21 Niels Flores MD [address] [place] [phone] Cardiovascular Disease 04/02/24 Wood Science Professor Relationship Specialty Start Date End Date Josias Castro ClemonsDO [address] [place] [address] [place] [address] PCP - General Family Medicine 02/03/23 Karthikeyan Turner MD [address] [place], [place] [id number] Oncologist Hematology 08/28/21 Sharron Calderon DO [address] [place] [phone] Auditor Tax Nephrology 08/28/21 Isaac Min MD [address] [place] [phone] Handcrew Foreman Pulmonary Disease 08/28/21 Niels Flores MD [address] [place] [address] Cardiovascular Disease 04/02/24 Team Status: Active Member Role Status Dates Dr. Castro Ferrara DO Primary Care Provider Active Team Status: Active Member Role Status Dates Dr. Castro Ferrara DO Primary Care Provider Active Start: October 20, 2024 Dr. Castro Ferrara DO Attending Provider Active Start: October 20, 2024 Team Status: Active Member Role Status Dates Dr. Castro Ferrara DO Primary Care Provider Active Start: October 27, 2024 Dr. Castro Ferrara DO Attending Provider Active Start: October 27, 2024 Team Status: Active Member Role Status Dates Dr. Castro Ferrara DO Primary Care Provider Active Start: November 03, 2024 Dr. Castro Ferrara DO Attending Provider Active Start: November 03, 2024 Team Status: Active Member Role Status Dates Dr. Castro Ferrara DO Primary Care Provider Active Start: November 17, 2024 Dr. Castro Ferrara DO Attending Provider Active Start: November 17, 2024 Team Status: Active Member Role Status Dates Dr. Castro Ferrara DO Primary Care Provider Active Start: November 24, 2024 Dr. Castro Ferrara DO Attending Provider Active Start: November 24, 2024 Team Status: Inactive Member Role Status Dates Dr. Castro Ferrara DO Primary Care Provider Active Start: November 25, 2024 End: November 25, 2024 Dr. Castro Ferrara DO Referring Provider Active Start: November 25, 2024 End: November 25, 2024 Dr. Timmy Miranda MD Attending Provider Active Start: November 25, 2024 End: November 25, 2024 Team Status: Inactive Member Role Status Dates Dr. Castro Ferrara DO Primary Care Provider Active Start: November 25, 2024 End: November 25, 2024 Dr. Timmy Miranda MD Attending Provider Active Start: November 25, 2024 End: November 25, 2024 Dr. Timmy Miranda MD Referring Provider Active Start: November 25, 2024 End: November 25, 2024 Team Status: Active Member Role Status Dates Dr. Castro Ferrara DO Primary Care Provider Active Start: December 01, 2024 Dr. Castro Ferrara DO Attending Provider Active Start: December 01, 2024 Team Status: Active Member Role Status Dates Dr. Castro Ferrara DO Primary Care Provider Active Start: December 03, 2024 Dr. Castro Ferrara DO Attending Provider Active Start: December 03, 2024 Team Status: Active Member Role Status Dates Dr. Castro Ferrara DO Primary Care Provider Active Start: December 08, 2024 Dr. Castro Ferrara DO Attending Provider Active Start: December 08, 2024 Team Status: Active Member Role Status Dates Dr. Castro Ferrara DO Primary Care Provider Active Start: December 15, 2024 Dr. Castro Ferrara DO Attending Provider Active Start: December 15, 2024 Team Status: Inactive Member Role Status Dates Dr. Castro Ferrara DO Primary Care Provider Active Start: December 16, 2024 End: December 16, 2024 Dr. Diego Reaves DO Attending Provider Active Start : December 16, 2024 End: December 16, 2024 Dr. Diego Reaves DO Emergency Provider Active Start : December 16, 2024 End: December 16, 2024 Team Status: Active Member Role Status Dates Dr. Castro Ferrara DO Primary Care Provider Active Start: December 16, 2024 Dr. Diego Reaves DO Referring Provider Active Start : December 16, 2024 Dr. Diego Reaves DO Emergency Provider Active Start : December 16, 2024 Dr. Alonso Abdullahi MD Attending Provider Active Start: December 16, 2024 Team Status: Inactive Member Role Status Dates Dr. Castro Ferrara DO Primary Care Provider Active Start: December 17, 2024 End: December 18, 2024 Dr. Marquis Gomes DO Attending Provider Active Start: December 17, 2024 End: December 18, 2024 Dr. Marquis Gomes DO Emergency Provider Active Start: December 17, 2024 End: December 18, 2024 Team Status: Active Member Role Status Dates Dr. Castro Ferrara DO Primary Care Provider Active Start: December 19, 2024 Dr. Castro Ferrara DO Attending Provider Active Start: December 19, 2024 Team Status: Active Member Role Status Dates Dr. Castro Ferrara DO Primary Care Provider Active Start: December 22, 2024 Dr. Castro Ferrara DO Attending Provider Active Start: December 22, 2024 Team Status: Active Member Role Status Dates Dr. Castro Ferrara DO Primary Care Provider Active Start: December 24, 2024 Dr. Castro Ferrara DO Attending Provider Active Start: December 24, 2024 Team Status: Active Member Role Status Dates Dr. Castro Ferrara DO Primary Care Provider Active Start: December 29, 2024 Dr. Castro Ferrara DO Attending Provider Active Start: December 29, 2024 Team Status: Inactive Member Role Status Dates Dr. Castro Ferrara DO Primary Care Provider Active Start: December 31, 2024 End: December 31, 2024 MERON LAMA Attending Provider Active Start: December 31, 2024 End: December 31, 2024 MERON LAMA Referring Provider Active Start: December 31, 2024 End: December 31, 2024 Team Status: Active Member Role Status Dates Dr. Castro Ferrara DO Primary Care Provider Active Start: January 02, 2025 Dr. Castro Ferrara DO Attending Provider Active Start: January 02, 2025 Team Status: Active Member Role Status Dates Dr. Castro Ferrara DO Primary Care Provider Active Start: January 05, 2025 Dr. Castro Ferrara DO Attending Provider Active Start: January 05, 2025 Team Status: Active Member Role Status Dates Dr. Castro Ferrara DO Primary Care Provider Active Start: January 19, 2025 Dr. Castro Ferrara DO Attending Provider Active Start: January 19, 2025 Team Status: Active Member Role Status Dates Dr. Castro Ferrara DO Primary Care Provider Active Start: January 22, 2025 Dr. Sharron Calderon DO Attending Provider Active Start: January 22, 2025 Dr. Sharron Calderon DO Referring Provider Active Start: January 22, 2025 Team Status: Active Member Role Status Dates Dr. Castro Ferrara DO Primary Care Provider Active Start: January 26, 2025 Dr. Castro Ferrara DO Attending Provider Active Start: January 26, 2025 Team Status: Inactive Member Role Status Dates Dr. Castro Ferrara DO Primary Care Provider Active Start: January 28, 2025 End: January 28, 2025 Dr. Niels Flores MD Attending Provider Active S tart: January 28, 2025 End: January 28, 2025 Team Status: Inactive Member Role Status Dates Dr. Castro Ferrara DO Primary Care Provider Active Start: January 28, 2025 End: January 28, 2025 Dr. Castro Ferrara DO Referring Provider Active Start: January 28, 2025 End: January 28, 2025 Isis Arce Attending Provider Active Start: 2024 End: January 28, 2025 Team Status: Inactive Member Role Status Dates Dr. Castro Ferrara DO Primary Care Provider Active Start: January 28, 2025 End: January 28, 2025 Dr. Castro Ferrara DO Referring Provider Active Start: January 28, 2025 End: January 28, 2025 Esa Mckeon DRYWALL SANDER, DRYWALL SANDER-C Attending Provider Active S tart: January 28, 2025 End: January 28, 2025 Team Status: Active Member Role Status Dates Dr. Castro Ferrara DO Primary Care Provider Active Start: February 02, 2025 Dr. Castro Ferrara DO Attending Provider Active Start: February 02, 2025 Team Status: Active Member Role Status Dates Dr. Castro Ferrara DO Primary Care Provider Active Start: February 09, 2025 Dr. Castro Ferrara DO Attending Provider Active Start: February 09, 2025 Team Status: Active Member Role Status Dates Dr. Castro Ferrara DO Primary Care Provider Active Start: February 11, 2025 Dr. Castro Ferrara DO Attending Provider Active Start: February 11, 2025 Team Status: Active Member Role Status Dates Dr. Castro Ferrara DO Primary Care Provider Active Start: February 12, 2025 Dr. Castro Ferrara DO Attending Provider Active Start: February 12, 2025 Dr. Castro Ferrara DO Referring Provider Active Start: February 12, 2025 Team Status: Inactive Member Role Status Dates Dr. Castro Ferrara DO Primary Care Provider Active Start: February 12, 2025 End: February 13, 2025 Dr. Kaveh Hadley DO Emergency Provider Active Start: February 12, 2025 End: February 13, 2025 Wood Science Professor Relationship Specialty Start Date End Date Castro Ferrara DO [address] [place] [address] PCP - General Family Medicine 02/03/23 Karthikeyan Turner MD [address] [place] [address] Oncologist Hematology 08/28/21 Sharron Calderon DO [address] [place] [address] Auditor Tax Nephrology 08/28/21 Isaac Min MD [address] [place] [address] Handcrew Foreman Pulmonary Disease 08/28/21 Niels Flores MD [address] [place] [address] Cardiovascular Disease 04/02/24 Wood Science Professor Relationship Specialty Start Date End Date Castro Ferrara DO [address] [place] [address] PCP - General Family Medicine 02/03/23 Karthikeyan Turner MD [address] [place] [address] Oncologist Hematology 08/28/21 Sharron Calderon DO [address] [place] [address] Auditor Tax Nephrology 08/28/21 Isaac Min MD [address] [place] [address] Handcrew Foreman Pulmonary Disease 08/28/21 Niels Flores MD [address] [place] [address] Cardiovascular Disease 04/02/24 Team Status: Inactive Member Role Status Dates Dr. Castro Ferrara DO Primary Care Provider Active Start: February 12, 2025 End: February 12, 2025 Dr. Castro Ferrara DO Attending Provider Active Start: February 12, 2025 End: February 12, 2025 Dr. Castro Ferrara DO Referring Provider Active Start: February 12, 2025 End: February 12, 2025 Team Status: Inactive Member Role Status Dates Dr. Castro Ferrara DO Primary Care Provider Active Start: February 12, 2025 End: February 13, 2025 Dr. Kaveh Hadley DO Attending Provider Active Start: February 12, 2025 End: February 13, 2025 Dr. Kaveh Hadley DO Emergency Provider Active Start: February 12, 2025 End: February 13, 2025 Team Status: Active Member Role Status Dates Dr. Castro Ferrara DO Primary Care Provider Active Start: March 06, 2025 Dr. Castro Ferrara DO Attending Provider Active Start: March 06, 2025 Team Status: Active Member Role Status Dates Dr. Castro Ferrara DO Primary Care Provider Active Start: March 09, 2025 Dr. Castro Ferrara DO Attending Provider Active Start: March 09, 2025 Team Status: Active Member Role Status Dates Dr. Castro Ferrara DO Primary Care Provider Active Start: March 10, 2025 Dr. Castro Ferrara DO Attending Provider Active Start: March 10, 2025 Team Status: Active Member Role Status Dates Dr. Castro Ferrara DO Primary Care Provider Active Start: March 12, 2025 Dr. Castro Ferrara DO Attending Provider Active Start: March 12, 2025 Team Status: Active Member Role Status Dates Dr. Castro Ferrara DO Primary Care Provider Active Start: March 16, 2025 Dr. Castro Ferrara DO Attending Provider Active Start: March 16, 2025 Team Status: Inactive Member Role Status Dates Dr. Castro Ferrara DO Primary Care Provider Active Start: March 17, 2025 End: March 17, 2025 Dr. Castro Ferrara DO Referring Provider Active Start: March 17, 2025 End: March 17, 2025 AMY Caro Attending Provider Active S tart: March 17, 2025 End: March 17, 2025 Team Status: Active Member Role Status Dates Dr. Castro Ferrara DO Primary Care Provider Active Start: March 23, 2025 Dr. Castro Ferrara DO Attending Provider Active Start: March 23, 2025 Team Status: Inactive Member Role Status Dates Dr. Castro Ferrara DO Primary Care Provider Active Start: March 23, 2025 End: March 23, 2025 AMY Caro Attending Provider Active S tart: March 23, 2025 End: March 23, 2025 AMY Caro Referring Provider Active S tart: March 23, 2025 End: March 23, 2025 Team Status: Inactive Member Role Status Dates Dr. Castro Ferrara DO Primary Care Provider Active Start: March 25, 2025 End: March 25, 2025 Dr. Castro Ferrara DO Referring Provider Active Start: March 25, 2025 End: March 25, 2025 Sue Roberts NP, DRYWALL SANDER-C Attending Provider Active Start: March 25, 2025 End: March 25, 2025 Team Status: Active Member Role Status Dates Dr. Castro Ferrara DO Primary Care Provider Active Start: March 30, 2025 Dr. Castro Ferrara DO Attending Provider Active Start: March 30, 2025 Team Status: Active Member Role Status Dates Dr. Castro Ferrara DO Primary Care Provider Active Start: April 06, 2025 Dr. Castro Ferrara DO Attending Provider Active Start: April 06, 2025 Team Status: Inactive Member Role Status Dates Dr. Castro Ferrara DO Primary Care Provider Active Start: April 08, 2025 End: April 08, 2025 Sue Roberts NP, DRYWALL SANDER-C Attending Provider Active Start: April 08, 2025 End: April 08, 2025 Sue Roberts NP, DRYWALL SANDER-C Referring Provider Active Start: April 08, 2025 End: April 08, 2025 AMY Caro Other Provider Active Start : April 08, 2025 End: April 08, 2025 Wood Science Professor Relationship Specialty Start Date End Date Castro Ferrara DO [address] [place] [address] PCP - General Family Medicine 02/03/23 Karthikeyan Turner MD [address], [place] [address] Oncologist Hematology 08/28/21 Sharron Calderon DO [address] [place] [address] Auditor Tax Nephrology 08/28/21 Isaac Min MD [address] [place] [address] Handcrew Foreman Pulmonary Disease 08/28/21 Niels Flores MD [address] [place] [address] Cardiovascular Disease 04/02/24 Team Status: Active Member Role Status Dates Dr. Castro Ferrara DO Primary Care Provider Active Start: April 13, 2025 Dr. Castro Ferrara DO Attending Provider Active Start: April 13, 2025 Team Status: Inactive Member Role Status Dates Dr. Castro Ferrara DO Primary Care Provider Active Start: April 18, 2025 End: April 18, 2025 Dr. Kush Pool MD Emergency Provider Active Sta rt: April 18, 2025 End: April 18, 2025 Team Status: Inactive Member Role Status Dates Dr. Castro Ferrara DO Primary Care Provider Active Start: April 18, 2025 End: April 18, 2025 Dr. Kush Pool MD Attending Provider Active Sta rt: April 18, 2025 End: April 18, 2025 Dr. Kush Pool MD Emergency Provider Active Sta rt: April 18, 2025 End: April 18, 2025 Team Status: Active Member Role Status Dates Dr. Castro Ferrara DO Primary Care Provider Active Start: April 20, 2025 Dr. Castro Ferrara DO Attending Provider Active Start: April 20, 2025 Team Status: Active Member Role Status Dates Dr. Castro Ferrara DO Primary Care Provider Active Start: April 27, 2025 Dr. Castro Ferrara DO Attending Provider Active Start: April 27, 2025 Team Status: Active Member Role Status Dates Dr. Castro Ferrara DO Primary Care Provider Active Start: April 28, 2025 Dr. Castro Ferrara DO Attending Provider Active Start: April 28, 2025 Team Status: Inactive Member Role Status Dates Dr. Castro Ferrara DO Primary Care Provider Active Start: April 29, 2025 End: April 29, 2025 Dr. Castro Ferrara DO Attending Provider Active Start: April 29, 2025 End: April 29, 2025 Sue Roberts DRYWALL SANDER, DRYWALL SANDER-C Referring Provider Active Start: April 29, 2025 End: April 29, 2025 Team Status: Active Member Role Status Dates Dr. Castro Ferrara DO Primary Care Provider Active Start: May 04, 2025 Dr. Castro Ferrara DO Attending Provider Active Start: May 04, 2025 Team Status: Active Member Role/Relationship Status Dates Dr. Castro Ferrara DO Primary Care Provider Active Team Status: Inactive Member Role/Relationship Status Dates Dr. Castro Ferrara DO Primary Care Provider Active Start: January 28, 2025 End: January 28, 2025 Dr. Niels Flores MD Attending Provider Active S tart: January 28, 2025 End: January 28, 2025 Team Status: Inactive Member Role/Relationship Status Dates Dr. Castro Ferrara DO Primary Care Provider Active Start: January 28, 2025 End: January 28, 2025 Dr. Castro Ferrara DO Referring Provider Active Start: January 28, 2025 End: January 28, 2025 Isis Arce Attending Provider Active Start: 2024 End: January 28, 2025 Team Status: Inactive Member Role/Relationship Status Dates Dr. Castro Ferrara DO Primary Care Provider Active Start: January 28, 2025 End: January 28, 2025 Dr. Castro Ferrara DO Referring Provider Active Start: January 28, 2025 End: January 28, 2025 Esa Mckeon DRYWALL SANDER, DRYWALL SANDER-C Attending Provider Active S tart: January 28, 2025 End: January 28, 2025 Team Status: Active Member Role/Relationship Status Dates Dr. Castro Ferrara DO Primary Care Provider Active Start: February 02, 2025 Dr. Castro Ferrara DO Attending Provider Active Start: February 02, 2025 Team Status: Active Member Role/Relationship Status Dates Dr. Castro Ferrara DO Primary Care Provider Active Start: February 09, 2025 Dr. Castro Ferrara DO Attending Provider Active Start: February 09, 2025 Team Status: Active Member Role/Relationship Status Dates Dr. Castro Ferrara DO Primary Care Provider Active Start: February 11, 2025 Dr. Castro Ferrara DO Attending Provider Active Start: February 11, 2025 Team Status: Inactive Member Role/Relationship Status Dates Dr. Castro Ferrara DO Primary Care Provider Active Start: February 12, 2025 End: February 12, 2025 Dr. Castro Ferrara DO Attending Provider Active Start: February 12, 2025 End: February 12, 2025 Dr. aCstro Ferrara DO Referring Provider Active Start: February 12, 2025 End: February 12, 2025 Team Status: Inactive Member Role/Relationship Status Dates Dr. Castro Ferrara DO Primary Care Provider Active Start: February 12, 2025 End: February 13, 2025 Dr. Kaveh Hadley DO Attending Provider Active Start: February 12, 2025 End: February 13, 2025 Dr. Kaveh Hadley DO Emergency Provider Active Start: February 12, 2025 End: February 13, 2025 Team Status: Active Member Role/Relationship Status Dates Dr. Castro Ferrara DO Primary Care Provider Active Start: March 06, 2025 Dr. Castro Ferrara DO Attending Provider Active Start: March 06, 2025 Team Status: Active Member Role/Relationship Status Dates Dr. Castro Ferrara DO Primary Care Provider Active Start: March 09, 2025 Dr. Castro Ferrara DO Attending Provider Active Start: March 09, 2025 Team Status: Active Member Role/Relationship Status Dates Dr. Castro Ferrara DO Primary Care Provider Active Start: March 10, 2025 Dr. Castro Ferrara DO Attending Provider Active Start: March 10, 2025 Team Status: Active Member Role/Relationship Status Dates Dr. Castro Ferrara DO Primary Care Provider Active Start: March 12, 2025 Dr. Castro Ferrara DO Attending Provider Active Start: March 12, 2025 Team Status: Active Member Role/Relationship Status Dates Dr. Castro Ferrara DO Primary Care Provider Active Start: March 16, 2025 Dr. Castro Ferrara DO Attending Provider Active Start: March 16, 2025 Team Status: Inactive Member Role/Relationship Status Dates Dr. Castro Ferrara DO Primary Care Provider Active Start: March 17, 2025 End: March 17, 2025 Dr. Castro Ferrara DO Referring Provider Active Start: March 17, 2025 End: March 17, 2025 AMY Caro Attending Provider Active S tart: March 17, 2025 End: March 17, 2025 Team Status: Active Member Role/Relationship Status Dates Dr. Castro Ferrara DO Primary Care Provider Active Start: March 23, 2025 Dr. Castro Ferrara DO Attending Provider Active Start: March 23, 2025 Team Status: Inactive Member Role/Relationship Status Dates Dr. Castro Ferrara DO Primary Care Provider Active Start: March 23, 2025 End: March 23, 2025 Vaishnavi Bob NP-C Attending Provider Active S tart: March 23, 2025 End: March 23, 2025 Vaishnavi Bob DRYWALL SANDER-C Referring Provider Active S tart: March 23, 2025 End: March 23, 2025 Team Status: Inactive Member Role/Relationship Status Dates Dr. Castro Ferrara DO Primary Care Provider Active Start: March 25, 2025 End: March 25, 2025 Dr. Castro Ferrara DO Referring Provider Active Start: March 25, 2025 End: March 25, 2025 Sue Roberts DRYWALL SANDER, DRYWALL SANDER-C Attending Provider Active Start: March 25, 2025 End: March 25, 2025 Team Status: Active Member Role/Relationship Status Dates Dr. Castro Ferrara DO Primary Care Provider Active Start: March 30, 2025 Dr. Castro Ferrara DO Attending Provider Active Start: March 30, 2025 Team Status: Active Member Role/Relationship Status Dates Dr. Castro Ferrara DO Primary Care Provider Active Start: April 06, 2025 Dr. Castro Ferrara DO Attending Provider Active Start: April 06, 2025 Team Status: Inactive Member Role/Relationship Status Dates Dr. Castro Ferrara DO Primary Care Provider Active Start: April 08, 2025 End: April 08, 2025 Sue Roberts DRYWALL SANDER, DRYWALL SANDER-C Attending Provider Active Start: April 08, 2025 End: April 08, 2025 Sue Roberts DRYWALL SANDER, DRYWALL SANDER-C Referring Provider Active Start: April 08, 2025 End: April 08, 2025 Vaishnavi Bob NP-C Other Provider Active Start : April 08, 2025 End: April 08, 2025 Team Status: Active Member Role/Relationship Status Dates Dr. Castro Ferrara DO Primary Care Provider Active Start: April 08, 2025 Dr. Jd Weeks DO Attending Provider Active S tart: April 08, 2025 Sue Roberts DRYWALL SANDER, DRYWALL SANDER-C Referring Provider Active Start: April 08, 2025 Team Status: Active Member Role/Relationship Status Dates Dr. Castro Ferrara DO Primary Care Provider Active Start: April 13, 2025 Dr. Castro Ferrara DO Attending Provider Active Start: April 13, 2025 Team Status: Inactive Member Role/Relationship Status Dates Dr. Castro Ferrara DO Primary Care Provider Active Start: April 18, 2025 End: April 18, 2025 Dr. Kush Pool MD Attending Provider Active Sta rt: April 18, 2025 End: April 18, 2025 Dr. Kush Pool MD Emergency Provider Active Sta rt: April 18, 2025 End: April 18, 2025 Team Status: Active Member Role/Relationship Status Dates Dr. Castro Ferrara DO Primary Care Provider Active Start: April 20, 2025 Dr. Castro Ferrara DO Attending Provider Active Start: April 20, 2025 Team Status: Active Member Role/Relationship Status Dates Dr. Castro Ferrara DO Primary Care Provider Active Start: April 27, 2025 Dr. Castro Ferrara DO Attending Provider Active Start: April 27, 2025 Team Status: Active Member Role/Relationship Status Dates Dr. Castro Ferrara DO Primary Care Provider Active Start: April 28, 2025 Dr. Castro Ferrara DO Attending Provider Active Start: April 28, 2025 Team Status: Inactive Member Role/Relationship Status Dates Dr. Castro Ferrara DO Primary Care Provider Active Start: April 29, 2025 End: April 29, 2025 Dr. Castro Ferrara DO Attending Provider Active Start: April 29, 2025 End: April 29, 2025 Sue Roberts DRYWALL SANDER, DRYWALL SANDER-C Referring Provider Active Start: April 29, 2025 End: April 29, 2025 Team Status: Active Member Role/Relationship Status Dates Dr. Castro Ferrara DO Primary Care Provider Active Start: May 04, 2025 Dr. Castro Ferrara DO Attending Provider Active Start: May 04, 2025 Team Status: Active Member Role/Relationship Status Dates Dr. Castro Ferrara DO Primary Care Provider Active Start: May 07, 2025 Dr. Castro Ferrara DO Attending Provider Active Start: May 07, 2025 Team Status: Active Member Role/Relationship Status Dates Dr. Castro Ferrara DO Primary Care Provider Active Start: May 11, 2025 Dr. Castro Ferrara DO Attending Provider Active Start: May 11, 2025 Team Status: Active Member Role/Relationship Status Dates Dr. Castro Ferrara DO Primary Care Provider Active Start: May 13, 2025 Dr. Castro Ferrara DO Attending Provider Active Start: May 13, 2025 Team Status: Active Member Role/Relationship Status Dates Dr. Castro Ferrara DO Primary Care Provider Active Start: May 18, 2025 Dr. Castro Ferrara DO Attending Provider Active Start: May 18, 2025 Team Status: Active Member Role/Relationship Status Dates Dr. Castro Ferrara DO Primary Care Provider Active Start: May 25, 2025 Dr. Csatro Ferrara DO Attending Provider Active Start: May 25, 2025 Team Status: Active Member Role/Relationship Status Dates Dr. Castro Ferrara DO Primary Care Provider Active Start: May 27, 2025 Dr. Castro Ferrara DO Attending Provider Active Start: May 27, 2025 Team Status: Active Member Role/Relationship Status Dates Dr. Karthikeyan Tunrer MD Attending Provider Active S tart: May 27, 2025 Dr. Vinny Atkinson MD Primary Care Provider Active Start: May 27, 2025 Dr. Vinny Atkinson MD Family Provider Active Sta rt: May 27, 2025 Dr. Vinny Atkinson MD Referring Provider Active Start: May 27, 2025 Dr. Jeff Grullon MD Other Provider Active St art: May 27, 2025 Team Status: Inactive Member Role/Relationship Status Dates Dr. Castro Ferrara DO Primary Care Provider Active Start: May 27, 2025 End: May 27, 2025 Dr. Castro Ferrara DO Referring Provider Active Start: May 27, 2025 End: May 27, 2025 Dr. Karthikeyan Turner MD Attending Provider Active S tart: May 27, 2025 End: May 27, 2025 Continuous Active and Recently Administ ered Medications (unrecognized section and content) Medication Order 03/31/2024 04/01/2024 04/02/2024 Sodium chloride 0.9% IV solution 500 mL Intravenous, at 10 mL/hr, CONTINUOUS, Starting on Sun04/02/24 at 0745, Until Sun04/02/24 at 1530, KVO fluids, start the morning of procedure., Pre-op/Pre-Proc 0801 ($$New Bag$$ - Provider: Enrico Bateman RN) PRN Medication Order 03/31/2024 04/01/2024 04/02/2024 Acetaminophen (TYLENOL) tablet 650 mg 650 mg, Oral, EVERY 6 HOURS NEEDED, Starting on Sun04/02/24 at 1136, Until Sun04/02/24 at 1530, Mild Pain, Maximum dose of acetaminophen is 4000 mg from all sources in 24 hours., Post-op/Post-Proc alum/mag hydrox.-simethicone oral suspension 30 mL 30 mL, Oral, EVERY 6 HOURS NEEDED, Starting on Sun04/02/24 at 1136, Until Sun04/02/24 at 1530, Indigestion, Per 5 mL is equivalent to: (Alum-Mag Hydroxide 200-225 mg and Simethicone 20 mg) and (Alum-Mag Hydroxide 200-200 mg and Simethicone 20 mg), Post-op/Post-Proc ceFAZolin (ANCEF) injection (CANCELED) Administer over 3 Minutes, NEEDED, Starting on Sun04/02/24 at 1020, Until Sun04/02/24 at 1147, Intra-op/Intra-Proc 1020 (Given - Provid er: Ford Gonzalez RN) fentaNYL (SUBLIMAZE) injection (CANCELED) Administer over 2 Minutes, NEEDED, Starting on Sun04/02/24 at 1030, Until Sun04/02/24 at 1147, Intra-op/Intra-Proc 1030 (Given - Provid er: Ford Gonzalez RN) HYDROmorphone (DILAUDID) injection 0.2 mg 0.2 mg, Intravenous, EVERY 2 HOURS NEEDED, Starting on Sun04/02/24 at 1136, Until Sun04/02/24 at 1530, Severe Pain, If unable to tolerate PO, Post-op/Post-Proc Lidocaine (XYLOCAINE) 10 mg/mL injection (CANCELED) NEEDED, Starting on Sun04/02/24 at 1035, Until Sun04/02/24 at 1147, Intra-op/Intra-Proc 1035 (Given - Provid er: Carrie Freeman MD) magnesium oxide (MAG-OX) tablet 800 mg 800 mg, Oral, ADMINISTER DIRECTED, Starting on Sun04/02/24 at 1136, Until Sun04/02/24 at 1530, See admin instructions, For Magnesium 1.6 - 2.0, give 800 mg of Magnesium oxide, Post-op/Post-Proc Magnesium sulfate 4 g in sterile water 50 ml premix IVPB 4 g, Intravenous, Administer over 4 Hours, ADMINISTER DIRECTED, Starting on Sun04/02/24 at 1136, Until Sun04/02/24 at 1530, Other, Magnesium Replacement Therapy, If Magnesium less than 1.6, give 4 g Magnesium Sulfate IVPB over 4 hours (may give over 1 hour if arrhythmias present)., Post-op/Post-Proc Melatonin tablet 3 mg 3 mg, Oral, DAILY AT BEDTIME NEEDED, Starting on Sun04/02/24 at 1136, Until Sun04/02/24 at 1530, Insomnia, Post-op/Post-Proc midazolam (VERSED) injection (CANCELED) NEEDED, Starting on Sun04/02/24 at 1030, Until Sun04/02/24 at 1147, Intra-op/Intra-Proc 1030 (Given - Provid er: Ford Gonzalez RN) Ondansetron 4mg/2ml (ZOFRAN) injection 4 mg 4 mg, Intravenous, EVERY 4 HOURS NEEDED, Starting on Sun04/02/24 at 1136, Until Sun04/02/24 at 1530, Nausea / Vomiting, Post-op/Post-Proc oxyCODONE (ROXICODONE) tablet 5 mg(Linked Group 1) 5 mg, Oral, EVERY 4 HOURS NEEDED, Starting on Sun04/02/24 at 1136, Until Sun04/02/24 at 1530, Moderate Pain, Severe Pain, PRN for Moderate Pain. Use for Severe Pain if IV not available for use as initial dose. Higher dose may be administred if lower dose was previously documented as ineffective and did not result in adverse effects (RR<10, decrease in level of consciousness)., Post-op/Post-Proc oxyCODONE HCl (ROXICODONE) tablet 10 mg(Linked Group 1) 10 mg, Oral, EVERY 4 HOURS NEEDED, Starting on Sun04/02/24 at 1136, Until Sun04/02/24 at 1530, Moderate Pain, Severe Pain, PRN for Moderate Pain. Use for Severe Pain if IV not available for use as initial dose. 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 Floor nurse to start Vancomycin infusion on unit floor when EP lab staff notifies that patient is section hand to EP lab. Vancomycin is preferred agent for device implants, based on national, community and local ([facility]) MRSA rates., Pre-op/Pre-Proc 0802 ($$New Bag$$ - Provider: Enrico Bateman RN) No Frequency Medication Order 03/31/2024 04/01/2024 04/02/2024 Sodium chloride 0.9% IV solution 1 dose, Starting on Sun04/02/24 at 0738, Until Sun04/02/24 at 1530, Created by cabinet override [id number] (Canceled Entry - Provider: System Discharge - Comment: Automatically canceled at discontinue of medication order) Linked Groups Order Group 1: oxyCODONE (ROXICODONE) tablet 5 mgJump to med 5 mg, Oral, EVERY 4 HOURS NEEDED, Starting on Sun04/02/24 at 1136, Until Sun04/02/24 at 1530, Moderate Pain, Severe Pain, PRN for Moderate Pain. Use for Severe Pain if IV not available for use as initial dose. Higher dose may be administred if lower dose was previously documented as ineffective and did not result in adverse effects (RR<10, decrease in level of consciousness)., Post-op/Post-Proc Or oxyCODONE HCl (ROXICODONE) tablet 10 mgJump to med 10 mg, Oral, EVERY 4 HOURS NEEDED, Starting on Sun04/02/24 at 1136, Until Sun04/02/24 at 1530, Moderate Pain, Severe Pain, PRN for Moderate Pain. Use for Severe Pain if IV not available for use as initial dose. Higher dose may be administred if lower dose was previously documented as ineffective and did not result in adverse effects (RR<10, decrease in level of consciousness), Post-op/Post-Proc Scheduled Medication Order 12/17/2024 12/18/2024 12/19/2024 ALPRAZolam (XANAX) tablet 1 mg 1 mg, Oral, DAILY AT BEDTIME, First dose on Sun12/18/24 at 2100, Until Discontinued 2031 (Given - Provider: Rachael Platt RN) Cinacalcet (SENSIPAR) tablet 30 mg 30 mg, Oral, EVERY M, W & F, First dose on Sun12/19/24 at 0900, Until Discontinued 835 (Given - Provid er: Katherine Enciso RN) Cyclobenzaprine (FLEXERIL) tablet 10 mg 10 mg, Oral, EVERY 12 HOURS, First dose on Sun12/18/24 at 2100, Until Discontinued 2031 (Given - Provider: Rachael Platt RN) 08 (Given - Provider: Katherine Enciso RN) Doxycycline monohydrate (MONODOX) capsule 100 mg 100 mg, Oral, EVERY 12 HOURS, First dose on Sun12/18/24 at 2100, Until Discontinued 2031 (Given - Provider: Rachael Platt RN) 08 (Given - Provider: Katherine Enciso RN) Fluconazole (DIFLUCAN) tablet 200 mg 200 mg, Oral, DAILY, First dose on Sun12/19/24 at 0900, Until Discontinued, Swallow tablet whole; do not crush, split or chew. Contact pharmacy if alternate route or dose is needed. 08 (Given - Provid er: Katherine Enciso RN) Lactulose (CHRONULAC) oral solution 20 g 20 g, Oral, 2 TIMES DAILY, First dose (after last modification) on Sun12/18/24 at 1700, Until Discontinued, Monitor frequency of bowel movements, Titrate the dose for 2-3 soft bowel movements/day 5 (Given - Provider: Farrah Schafer RN) 0829 (Given - Provider: Katherine Enciso RN)1700 (Canceled Entry - Provider: System Discharge - Comment: Automatically canceled at discontinue of medication order) Levothyroxine (SYNTHROID) tablet 75 mcg 75 mcg, Oral, DAILY BEFORE BREAKFAST, First dose on Sun12/19/24 at 0600, Until Discontinued 06 (Given - Provid er: Rachael Platt RN) Pantoprazole (PROTONIX) tablet DR 40 mg 40 mg, Oral, DAILY, First dose on Jerrica 12/18/24 at 1430, Until Discontinued, Swallow whole; do not crush or chew., Indications: Continuation of Home Therapy 151 (Given - Provider: Farrah Schafer RN) 0829 (Given - Provider: Katherine Enciso RN) sevelamer (RENVELA) tablet 800 mg 800 mg, Oral, 3 TIMES DAILY WITH MEALS, First dose on Jerrica 12/18/24 at 1700, Until Discontinued, Swallow whole; do not crush, chew, or break. Hold if patient is not receiving tube feeding or on a diet. 1745 (Given - Provider: Farrah Schafer RN) 0829 (Given - Provider: Katherine Enciso RN)1250 (Given - Provider: Katherine Enciso RN)1700 (Canceled Entry - Provider: System Discharge - Comment: Automatically canceled at discontinue of medication order) vitamin C/B complex/folic acid (VIRT-CAPS) capsule 1 mg 1 mg (1 capsule), Oral, DAILY, First dose on Jerrica 12/18/24 at 1430, Until Discontinued 151 (Given - Provider: Farrah Schafer RN) 0829 (Given - Provider: Katherine Enciso RN) PRN Medication Order 12/17/2024 12/18/2024 12/19/2024 Acetaminophen (TYLENOL) tablet 650 mg 650 mg, Oral, EVERY 6 HOURS NEEDED, Starting on Jerrica 12/18/24 at 1402, Until Sun12/19/24 at 1904, Mild Pain, Oral temp > 100.4 F, Maximum dose of acetaminophen is 4000 mg from all sources in 24 hours. alum/mag hydrox.-simethicone oral suspension 30 mL 30 mL, Oral, EVERY 6 HOURS NEEDED, Starting on Sun12/18/24 at 1402, Until Sun12/19/24 at 1904, Indigestion, Per 5 mL is equivalent to: (Alum-Mag Hydroxide 200-225 mg and Simethicone 20 mg) and (Alum-Mag Hydroxide 200-200 mg and Simethicone 20 mg) guaiFENesin (ROBITUSSIN) oral solution 400 mg 400 mg, Oral, EVERY 6 HOURS NEEDED, Starting on Sun12/18/24 at 1402, Until Sun12/19/24 at 1904, Cough, Congestion Melatonin tablet 6 mg 6 mg, Oral, DAILY AT BEDTIME NEEDED, Starting on Sun12/18/24 at 1402, Until Sun12/19/24 at 1904, Insomnia midodrine (ProAmatine) tablet 10 mg 10 mg, Oral, DAILY NEEDED, Starting on Jerrica 12/18/24 at 1358, Until Sun12/19/24 at 1904, Other, low BP midodrine (ProAmatine) tablet 10 mg (COMPLETED) 10 mg, Oral, ONCE DIRECTED, 1 dose, Starting on Sun12/19/24 at 1018, Until Sun12/19/24 at 1239, Other, Administer 30 minutes prior to scheduled dialysis 1239 (Given - Provid er: Katherine Enciso RN) Ondansetron (ZOFRAN) tablet 4 mg(Linked Group 1) 4 mg, Oral, EVERY 6 HOURS NEEDED, Starting on Jerrica 12/18/24 at 1402, Until Sun12/19/24 at 1904, Nausea / Vomiting, 1st line for Nausea/Vomiting Ondansetron 4mg/2ml (ZOFRAN) injection 4 mg(Linked Group 1) 4 mg, Intravenous, EVERY 6 HOURS NEEDED, Starting on Jerrica 12/18/24 at 1402, Until Sun12/19/24 at 1904, Nausea / Vomiting, 1st line for Nausea/Vomiting Polyethylene glycol (MIRALAX) packet 17 g 17 g, Oral, DAILY NEEDED, Starting on Jerrica 12/18/24 at 1402, Until Sun12/19/24 at 1904, Constipation 1st Line Promethazine (PHENERGAN) suppository 25 mg(Linked Group 2) 25 mg, Rectal, EVERY 6 HOURS NEEDED, Starting on Jerrica 12/18/24 at 1402, Until Sun12/19/24 at 1904, Refractory Nausea Vomiting, 2nd line for nausea/vomiting Promethazine HCl (PHENERGAN) tablet 25 mg(Linked Group 2) 25 mg, Oral, EVERY 6 HOURS NEEDED, Starting on Jerrica 12/18/24 at 1402, Until Sun12/19/24 at 1904, Refractory Nausea Vomiting, 2nd line for nausea/vomiting Linked Groups Order Group 1: Ondansetron 4mg/2ml (ZOFRAN) injection 4 mgJump to med 4 mg, Intravenous, EVERY 6 HOURS NEEDED, Starting on Jerrica 12/18/24 at 1402, Until Sun12/19/24 at 1904, Nausea / Vomiting, 1st line for Nausea/Vomiting Or Ondansetron (ZOFRAN) tablet 4 mgJump to med 4 mg, Oral, EVERY 6 HOURS NEEDED, Starting on Sun12/18/24 at 1402, Until Sun12/19/24 at 1904, Nausea / Vomiting, 1st line for Nausea/Vomiting Group 2: Promethazine HCl (PHENERGAN) tablet 25 mgJump to med 25 mg, Oral, EVERY 6 HOURS NEEDED, Starting on Sun12/18/24 at 1402, Until Sun12/19/24 at 1904, Refractory Nausea Vomiting, 2nd line for nausea/vomiting Or Promethazine (PHENERGAN) suppository 25 mgJump to med 25 mg, Rectal, EVERY 6 HOURS NEEDED, Starting on Sun12/18/24 at 1402, Until Sun12/19/24 at 1904, Refractory Nausea Vomiting, 2nd line for nausea/vomiting Scheduled Medication Order 03/04/2025 03/05/2025 03/06/2025 ALPRAZolam (XANAX) tablet 1 mg 1 mg, Oral, DAILY AT BEDTIME, First dose on Sun02/13/25 at 2100, Until Discontinued 2030 (Given - Provider: Che Cabrera RN) 2122 (Given - Provider: Shana Rees RN) calcium acetate - Phos Binder (PHOSLO) capsule 667 mg 667 mg, Oral, 3 TIMES DAILY WITH MEALS, First dose on Sun02/13/25 at 1700, Until Discontinued, On hold since Sun02/20/2025 at 0825 until manually unheld 0800 (Automatically Held)1200 (Automatically Held)1700 (Automatically Held) 0800 (Automatically Held)1200 (Automatically Held)1700 (Automatically Held) 0800 (Automatically Held)1200 (Automatically Held)1730 (Unheld by provider - Provider: System Discharge) Cinacalcet (SENSIPAR) tablet 30 mg 30 mg, Oral, TWICE WEEKLY (Once per day on Sunday), First dose on Sun02/13/25 at 1315, Until Discontinued 808 (Given - Provider: Sally Huff, GIO) Cyclobenzaprine (FLEXERIL) tablet 10 mg 10 mg, Oral, EVERY 12 HOURS, First dose on Sun02/13/25 at 1315, Until Discontinued 0848 (Given - Provider: Stella Swenson RN)2030 (Given - Provider: Che Cabrera, RN) 807 (Given - Provider: Sally Huff, GIO)2122 (Given - Provider: Shana Rees RN) 808 (Given - Provider: Adeel Ramon, GIO) Darbepoetin Yonis (ARANESP) injection 60 mcg 60 mcg, Subcutaneous, EVERY 7 DAYS, First dose on Sun03/03/25 at 1700, Until Discontinued, Indications: Iron Deficiency Anemia in Patients with ESRD on dialysis dialysate 3 K - 2.50 Ca Solution 1 (COMPLETED) Dialysis, Administer over 3.5 Hours, ONCE IN DIALYSIS, 1 dose, On Sun03/05/25 at 0000, Dialysis 1100 (Given - Provider: Thea Villa RN) 0000 (Due) Doxycycline monohydrate (MONODOX) capsule 100 mg 100 mg, Oral, EVERY 12 HOURS, First dose on Sun02/13/25 at 1315, Until Discontinued 0848 (Given - Provider: Stella Swenson RN)2030 (Given - Provider: Che Cabrera, GIO) 807 (Given - Provider: Sally Huff RN)2122 (Given - Provider: Shana Rees RN) 808 (Given - Provider: Adeel Ramon, GIO) Fluconazole (DIFLUCAN) tablet 200 mg 200 mg, Oral, DAILY AT BEDTIME, First dose (after last modification) on Sun02/15/25 at 2100, Until Discontinued, Swallow tablet whole; do not crush, split or chew. Contact pharmacy if alternate route or dose is needed. 2030 (Given - Provider: Che Cabrera RN) 2122 (Given - Provider: Shana Rees RN) Lactulose (CHRONULAC) oral solution 10 g 10 g, Oral, 2 TIMES DAILY, First dose (after last modification) on Sun02/15/25 at 0900, Until Discontinued 0848 (Given - Provider: Stella Swenson RN)170 (Given - Provider: Stella Swenson RN) 0848 (Given - Provider: Sally Huff RN)1757 (Given - Provider: Sally Huff, GIO) 0810 (Given - Provider: Adeel Ramon, GIO)1700 (Canceled Entry - Provider: System Discharge - Comment: Automatically canceled at discontinue of medication order) Levothyroxine (SYNTHROID) tablet 75 mcg 75 mcg, Oral, DAILY BEFORE BREAKFAST, First dose on Sun02/14/25 at 0600, Until Discontinued, Hold tube feedings for 1 hour before and 1 hour after medication administration. 0525 (Given - Provider: Chuck Syed RN) 0606 (Given - Provider: Che Cabrera RN) 0558 (Given - Provider: Sagrario Guevara RN) midodrine (ProAmatine) tablet 10 mg 10 mg, Oral, CUSTOM FREQUENCY (Once per day on Sunday), First dose on Sun02/16/25 at 0900, Until Discontinued 0808 (Given - Provider: Sally Huff RN) 0809 (Given - Provider: Adeel Ramon, GIO) Pantoprazole (PROTONIX) tablet DR 40 mg 40 mg, Oral, 2 TIMES DAILY, First dose on Sun02/18/25 at 1700, Until Discontinued, Swallow whole; do not crush or chew., Indications: Continuation of Home Therapy, GI Bleed 0849 (Given - Provider: Stella Swenson RN)1706 (Given - Provider: Stella Swenson, GIO) 0808 (Given - Provider: Sally Huff RN)1759 (Given - Provider: Sally Huff, GIO) 0809 (Given - Provider: Adeel Ramon, GIO)1700 (Canceled Entry - Provider: System Discharge - Comment: Automatically canceled at discontinue of medication order) vitamin C/B complex/folic acid (VIRT-CAPS) capsule 1 mg 1 mg (1 capsule), Oral, DAILY, First dose on Sun02/16/25 at 0900, Until Discontinued 0848 (Given - Provider: Stella Swenson RN) 0808 (Given - Provider: Sally Huff, GIO) 0809 (Given - Provider: Adeel Ramon, GIO) warfarin (COUMADIN) tablet 2 mg 2 mg, Oral, DAILY EARLY EVENING, First dose (after last modification) on Jerrica 03/05/25 at 1800, Until Discontinued, Swallow tablet whole; do not crush, split or chew. Contact pharmacy if alternate route or dose is needed. 175 (Given - Provider: Sally Huff RN) Warfarin (COUMADIN) tablet 3 mg (CANCELED) 3 mg, Oral, DAILY EARLY EVENING, First dose (after last modification) on Sun03/04/25 at 1800, Until Discontinued, Swallow tablet whole; do not crush, split or chew. Contact pharmacy if alternate route or dose is needed. 170 (Given - Provider: Stella Swenson RN) Continuous Medication Order 03/04/2025 03/05/2025 03/06/2025 Heparin 25,000 units in dextrose 5% 250 mL premix infusion (CANCELED) CONTINUOUS, Starting on Sun02/13/25 at 1630, Until Jerrica 03/05/25 at 0713, INTERMEDIATE/CARDIAC SLIDING SCALE FOR PATIENTS EQUAL TO OR GREATER THAN 65KG: Initiate dose at 12 units/kg/hr. If PTT is less than 47, increase dose by 3 units/kg/hr. If PTT is 47-60, increase dose by 2 units/kg/hr. If PTT is 61-71, increase dose by 1 unit/kg/hr. If PTT is 72-95, no change. If PTT is 96-111, decrease dose by 1 unit/kg/hr. If PTT is 112-126, hold infusion for 60 minutes and decrease dose by 2 units/kg/hr. If PTT greater than 126, hold infusion and check PTT every 2 hours. Once PTT is in goal range or below, restart infusion at 3 units/kg/hr lower than the most recent dose. Note: Round PTT to nearest whole number (e.g. 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 0547 ($$New Bag$$ - Provider: Chuck Syed RN)0657 (Rate/Dose Verify - Provider: Chuck Syed RN)0815 (Rate/Dose Change - Provider: Stella Swenson RN - Comment: PTT 110.5, Per sliding scale If PTT is 96-111, decrease dose by 1 unit/kg/hr.)1529 (Rate/Dose Verify - Provider: Stella Swenson RN - Comment: PTT 94.9, per sliding scale, If PTT is 72-95, no change.)2158 (Hold - Provider: Che Cabrera RN - Reason: Other - Comment: PTT is 112.5, hold for 60 minutes per protocol)2326 (Rate/Dose Change - Provider: Che Cabrera RN) 0508 (Rate/Dose Verify - Provider: Che Cabrera RN - Comment: PTT-86.9, per protocol no change in rate)0810 (Stopped - Provider: Sally Huff RN) PRN Medication Order 03/04/2025 03/05/2025 03/06/2025 Albuterol inhaler 2 puff 2 puff, Inhalation, EVERY 6 HOURS NEEDED, Starting on Sun02/14/25 at 0630, Until Sun03/06/25 at 1730, Shortness of Breath, Wait at least one(1) full minute between inhalations hydrOXYzine hcl (ATARAX) tablet 10 mg 10 mg, Oral, 3 TIMES DAILY NEEDED, Starting on Sun02/20/25 at 0314, Until Sun03/06/25 at 1730, Anxiety, Itching Melatonin tablet 6 mg 6 mg, Oral, DAILY AT BEDTIME NEEDED, Starting on Sun02/13/25 at 1051, Until Sun03/06/25 at 1730, Insomnia Scheduled Medication Order 03/04/2025 03/05/2025 03/06/2025 ALPRAZolam (XANAX) tablet 1 mg 1 mg, Oral, DAILY AT BEDTIME, First dose on Sun02/13/25 at 2100, Until Discontinued 2030 (Given - Provider: Che Cabrera RN) 2122 (Given - Provider: Shana Rees RN) calcium acetate - Phos Binder (PHOSLO) capsule 667 mg 667 mg, Oral, 3 TIMES DAILY WITH MEALS, First dose on Sun02/13/25 at 1700, Until Discontinued, On hold since Sun02/20/2025 at 0825 until manually unheld 0800 (Automatically Held)1200 (Automatically Held)1700 (Automatically Held) 0800 (Automatically Held)1200 (Automatically Held)1700 (Automatically Held) 0800 (Automatically Held)1200 (Automatically Held)1730 (Unheld by provider - Provider: System Discharge) Cinacalcet (SENSIPAR) tablet 30 mg 30 mg, Oral, TWICE WEEKLY (Once per day on Sunday), First dose on Sun02/13/25 at 1315, Until Discontinued 08 (Given - Provider: Sally Huff RN) Cyclobenzaprine (FLEXERIL) tablet 10 mg 10 mg, Oral, EVERY 12 HOURS, First dose on Sun02/13/25 at 1315, Until Discontinued 0848 (Given - Provider: Stella Swenson RN)2030 (Given - Provider: Che Cabrera RN) 08 (Given - Provider: Sally Huff RN)2122 (Given - Provider: Shana Rees RN) 0809 (Given - Provider: Adeel Ramon RN) Darbepoetin Yonis (ARANESP) injection 60 mcg 60 mcg, Subcutaneous, EVERY 7 DAYS, First dose on Sun03/03/25 at 1700, Until Discontinued, Indications: Iron Deficiency Anemia in Patients with ESRD on dialysis dialysate 3 K - 2.50 Ca Solution 1 (COMPLETED) Dialysis, Administer over 3.5 Hours, ONCE IN DIALYSIS, 1 dose, On Sun03/05/25 at 0000, Dialysis 1100 (Given - Provider: Thea Villa RN) 0000 (Due) Doxycycline monohydrate (MONODOX) capsule 100 mg 100 mg, Oral, EVERY 12 HOURS, First dose on Sun02/13/25 at 1315, Until Discontinued 0848 (Given - Provider: Stella Swenson RN)2030 (Given - Provider: Che Cabrera RN) 08 (Given - Provider: Sally Huff RN)2122 (Given - Provider: Shana Rees RN) 0809 (Given - Provider: Adeel Ramon RN) Fluconazole (DIFLUCAN) tablet 200 mg 200 mg, Oral, DAILY AT BEDTIME, First dose (after last modification) on Sun02/15/25 at 2100, Until Discontinued, Swallow tablet whole; do not crush, split or chew. Contact pharmacy if alternate route or dose is needed. 2030 (Given - Provider: Che Cabrera, GIO) 2122 (Given - Provider: Shana Rees RN) Lactulose (CHRONULAC) oral solution 10 g 10 g, Oral, 2 TIMES DAILY, First dose (after last modification) on 02/15/25 at 0900, Until Discontinued 0848 (Given - Provider: Stella Swenson RN)1705 (Given - Provider: Stella Swenson RN) 0848 (Given - Provider: Sally Huff RN)1757 (Given - Provider: Sally Huff RN) 0810 (Given - Provider: Adeel Ramon RN)1700 (Canceled Entry - Provider: System Discharge - Comment: Automatically canceled at discontinue of medication order) Levothyroxine (SYNTHROID) tablet 75 mcg 75 mcg, Oral, DAILY BEFORE BREAKFAST, First dose on Sun02/14/25 at 0600, Until Discontinued, Hold tube feedings for 1 hour before and 1 hour after medication administration. 0525 (Given - Provider: Chuck Syed RN) 0606 (Given - Provider: Che Cabrera RN) 0558 (Given - Provider: Sagrario Guevara RN) midodrine (ProAmatine) tablet 10 mg 10 mg, Oral, CUSTOM FREQUENCY (Once per day on Sunday), First dose on Sun02/16/25 at 0900, Until Discontinued 0808 (Given - Provider: Sally Huff RN) 0809 (Given - Provider: Adeel Ramon RN) Pantoprazole (PROTONIX) tablet DR 40 mg 40 mg, Oral, 2 TIMES DAILY, First dose on Sun02/18/25 at 1700, Until Discontinued, Swallow whole; do not crush or chew., Indications: Continuation of Home Therapy, GI Bleed 0849 (Given - Provider: Stella Swenson RN)1706 (Given - Provider: Stella Swenson RN) 0808 (Given - Provider: Sally Huff RN)1759 (Given - Provider: Sally Huff, RN) 0809 (Given - Provider: Adeel Ramon, RN)1700 (Canceled Entry - Provider: System Discharge - Comment: Automatically canceled at discontinue of medication order) vitamin C/B complex/folic acid (VIRT-CAPS) capsule 1 mg 1 mg (1 capsule), Oral, DAILY, First dose on Sun02/16/25 at 0900, Until Discontinued 0848 (Given - Provider: Stella Swenson RN) 0808 (Given - Provider: Sally Huff RN) 0809 (Given - Provider: Adeel Ramon, RN) warfarin (COUMADIN) tablet 2 mg 2 mg, Oral, DAILY EARLY EVENING, First dose (after last modification) on Sun03/05/25 at 1800, Until Discontinued, Swallow tablet whole; do not crush, split or chew. Contact pharmacy if alternate route or dose is needed. 175 (Given - Provider: Sally Huff RN) Warfarin (COUMADIN) tablet 3 mg (CANCELED) 3 mg, Oral, DAILY EARLY EVENING, First dose (after last modification) on Sun03/04/25 at 1800, Until Discontinued, Swallow tablet whole; do not crush, split or chew. Contact pharmacy if alternate route or dose is needed. 170 (Given - Provider: Stella Swenson RN) Continuous Medication Order 03/04/2025 03/05/2025 03/06/2025 Heparin 25,000 units in dextrose 5% 250 mL premix infusion (CANCELED) CONTINUOUS, Starting on Sun02/13/25 at 1630, Until Sun03/05/25 at 0713, INTERMEDIATE/CARDIAC SLIDING SCALE FOR PATIENTS EQUAL TO OR GREATER THAN 65KG: Initiate dose at 12 units/kg/hr. If PTT is less than 47, increase dose by 3 units/kg/hr. If PTT is 47-60, increase dose by 2 units/kg/hr. If PTT is 61-71, increase dose by 1 unit/kg/hr. If PTT is 72-95, no change. If PTT is 96-111, decrease dose by 1 unit/kg/hr. If PTT is 112-126, hold infusion for 60 minutes and decrease dose by 2 units/kg/hr. If PTT greater than 126, hold infusion and check PTT every 2 hours. Once PTT is in goal range or below, restart infusion at 3 units/kg/hr lower than the most recent dose. Note: Round PTT to nearest whole number (e.g. 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 0547 ($$New Bag$$ - Provider: Chuck Syed RN)0657 (Rate/Dose Verify - Provider: Chuck Syed RN)0815 (Rate/Dose Change - Provider: Stella Swenson RN - Comment: PTT 110.5, Per sliding scale If PTT is 96-111, decrease dose by 1 unit/kg/hr.)1529 (Rate/Dose Verify - Provider: Stella Swenson RN - Comment: PTT 94.9, per sliding scale, If PTT is 72-95, no change.)2158 (Hold - Provider: Che Cabrera RN - Reason: Other - Comment: PTT is 112.5, hold for 60 minutes per protocol)2326 (Rate/Dose Change - Provider: Che Cabrera RN) 0508 (Rate/Dose Verify - Provider: Che Cabrera RN - Comment: PTT-86.9, per protocol no change in rate)0810 (Stopped - Provider: Sally Huff RN) PRN Medication Order 03/04/2025 03/05/2025 03/06/2025 Albuterol inhaler 2 puff 2 puff, Inhalation, EVERY 6 HOURS NEEDED, Starting on 02/14/25 at 0630, Until Sun03/06/25 at 1730, Shortness of Breath, Wait at least one(1) full minute between inhalations hydrOXYzine hcl (ATARAX) tablet 10 mg 10 mg, Oral, 3 TIMES DAILY NEEDED, Starting on Sun02/20/25 at 0314, Until Sun03/06/25 at 1730, Anxiety, Itching Melatonin tablet 6 mg 6 mg, Oral, DAILY AT BEDTIME NEEDED, Starting on Sun02/13/25 at 1051, Until Sun03/06/25 at 1730, Insomnia Dialysis Access Sites (unrec ognized section and content) Type Status Location Placement Date Removal Da te Hemodialysis Peripheral AV Access 04/02/24 0748 HEMODIALYSIS USE ONLY;Hemodialysis Inactive Right Breast - Upper 04/02/2024 4 Arterial Line (Adult, Obstetrics) 05/08/16 1716 Right radial artery 20 gauge Inactive 05/08/2016 05/08/2016 Sheath (CV Access Device) 05/08/16 1612 Arterial 5 Fr 11 cm Right femoral Label 2 Inactive 05/08/201604/20 Sheath (CV Access Device) 05/08/16 1610 Venous 6 Fr 11 cm Right femoral Label 1 Inactive 05/08/201604/20 Sheath (CV Access Device) 02/26/13 1020 Venous 8 Fr 11 cm Right femoral Label 1 Inactive 02/26/201302/17 FOR RECORDS PERTAINING TO PATIENTS WHO ARE [...] BE BASED ON THE PRIMARY CLINICAL RECORDS. [facility] [employer] [facility]. provides no warranty or guarantee of the accuracy or completeness of information in this document.
--- NOTE | 2025-06-14 09:49 | EKG12_ITS ---
Test Reason : BACK PAIN Blood Pressure : */* mmHG Vent. Rate : 71 BPM Atrial Rate : 71 BPM P-R Int : * ms QRS Dur : 152 ms QT Int : 512 ms P-R-T Axes : * 213 121 degrees QTcB Int : 556 ms Ventricular-paced rhythm Biventricular pacemaker detected Abnormal ECG Confirmed by ALLEN NIX, AMINA ([id number]), newspaper managing editor TRINA VIVAR ([id number]) on 06/15/2025 1:01:33 PM Referred By: Confirmed By: AMINA VILLA MD
--- NOTE | 2025-06-14 09:50 | CT_ITS ---
PROCEDURE: ABDOMEN/PELVIS WITHOUT CONT 06/14/2025 REASON FOR EXAM: BACK PAIN TECHNIQUE: ABDOMEN/PELVIS WITHOUT CONT Noncontrast technique limits evaluation of the abdominal and pelvic viscera. Coronal and Sagittal reconstruction series were provided. One or more dose reduction techniques were used (e.g., Automated exposure control, adjustment of the mA and/or kV according to patient size, use of iterative reconstruction technique). RADIATION DOSE SUMMARY: CTDlvol: 8 mGy DLP: 456 mGycm COMPARISON: 03/23/2025. FINDINGS: Small left and trace right pleural effusions. Left basilar density which may represent atelectasis or aspiration/pneumonia. Chronic healing fractures of the right superior and inferior pubic rami. Mild superior endplate compression deformity of L3 which is new since the prior CT. Moderate atherosclerosis. No suspicious lymphadenopathy. Mildly irregular liver surface contour. Enlarged liver. Pancreas, spleen, and adrenals are unremarkable. Surgically absent gallbladder. Severe bilateral kidney atrophy. Bilateral kidney cysts. Additional bilateral renal subcentimeter hypodense lesions that are too small to characterize. No hydroureteronephrosis. Prostatomegaly. The urinary bladder is unremarkable. Normal caliber large and small bowel. Dense colonic stool. CT/Abdomen/Pelvis without Cont IMPRESSION: Mild superior endplate compression of L3 which is new since the prior CT. Mildly irregular hepatic surface contour in the setting of hepatomegaly may rep resent early fibrotic change. Consider elastography. Constipation. Reading Location: [id number]
[2025-06-14 10:01] LABS: Hematocrit 29.9 % (40-54); Hemoglobin 9.5 g/dL (13.0-16.5); Immature Granulocytes Count 0.040 X10^3/uL (0.0-0.0); Mean Corp Hgb Conc 31.8 g/dL (32-36); Mean Corpuscular Volume 98.7 fL (80-94); Mean Platelet Vol. 10.2 fl (6.2-12.0); NRBC Flagged by Analyzer 0 % (0-5); POSITIVE MORPHOLOGY YES; Platelet Count 216 K/mm3 (150-450); RBC Distribution Width CV 19.0 % (11.6-14.6); RBC Distribution Width SD 68.3 fl (35.1-43.9); Red Blood Count 3.03 M/mm3 (4.6-6.2); White Blood Count 11.5 K/mm3 (4.4-11.0)
[2025-06-14 10:02] LABS: Differential Indicated SCAN CRITERIA MET
[2025-06-14 10:27] LABS: Anisocytosis 1+
--- NOTE | 2025-06-14 10:37 | ED.RN ---
Pt states that he no longer makes urine dr luther made aware
[2025-06-14 10:55] LABS: Ammonia 45.0 umol/L (16-60)
[2025-06-14 10:56] LABS: Lipase 43 U/L (13-75)
[2025-06-14 11:04] LABS: AST(SGOT) 49 U/L (<=37); Alanine Aminotransfer ALT/SGPT 20 U/L (<=46); Albumin, Serum 3.3 g/dL (3.4-4.8); Alkaline Phosphatase 508 U/L (40-129); Anion Gap 17 (5-15); BUN 49 mg/dL (4-19); BUN/Creat Ratio 7.7 RATIO (10-20); Calcium,Total 9.6 mg/dL (7.6-11.0); Carbon Dioxide 26.6 mmol/L (21.0-32.0); Chloride 92 mmol/L (98-108); Estimated Creatinine Clearance 9.22 ml/min (50-250); Globulin 4.0 g/dL (2.2-4.2); Glucose 99 mg/dL (70-99); Potassium 3.7 mmol/L (3.3-5.1)
[2025-06-14 12:31] LABS: Prothrombin Time (Protime)PT. 24.2 SECONDS (11.7-14.9)
[2025-06-14 12:37] LABS: Partial Thromboplast Time 98.5 Seconds (24.1-36.2)
[2025-06-14 12:40] VITALS: BP 110/41; PULSE 70; RESP 18; O2SAT 100
[2025-06-14 13:45] VITALS: BP 120/43; PULSE 70; RESP 18; TEMP 36.4; O2SAT 99
== END 2025-06-14 14:31 | disposition home or self-care (01) ==
PROVIDERS: Emergency Provider Emergency Medicine; PCP Family Medicine; Visit Provider Emergency Medicine
DX: M54.50 Low back pain, unspecified (principal); I12.0 Hypertensive chronic kidney disease with stage 5 chronic kidney disease or end stage renal disease; N18.6 End stage renal disease; Z99.2 Dependence on renal dialysis; Z79.899 Other long term (current) drug therapy
CPT/HCPCS: 74176; 80053; 82140; 83605; 83690; 85025; 85610; 85730; 93005; 96374; 99285; A4216; J2405

== ENCOUNTER 2025-06-23 10:16 | Emergency (ER) | payer MEDICARE, OTHER, SELFPAY ==
[2025-06-23] VITALS (7 sets, daily range): BP systolic 113–134; BP diastolic 47–54; PULSE 68–85; RESP 18–26; TEMP 36.4; O2SAT 93–100; BMI 24.1
--- NOTE | 2025-06-23 11:14 | CT_ITS ---
PROCEDURE: ABDOMEN/PELVIS WITHOUT CONT 06/23/2025 REASON FOR EXAM: BACK PAIN TECHNIQUE: ABDOMEN/PELVIS WITHOUT CONT Noncontrast technique limits evaluation of the abdominal and pelvic viscera. Coronal and Sagittal reconstruction series were provided. One or more dose reduction techniques were used (e.g., Automated exposure control, adjustment of the mA and/or kV according to patient size, use of iterative reconstruction technique). RADIATION DOSE SUMMARY: CTDlvol: 9.93 mGy DLP: 52.21 mGycm COMPARISON: Prior study dated June 14, 2025. FINDINGS: Lung bases: Small bilateral pleural effusions with bibasilar infiltration worse at the left lung base. This has progressed slightly as compared to prior study. Prior midline sternotomy and coronary artery bypass surgery. Dual-chamber pacemaker is seen. Coronary artery calcifications present. Liver: Hepatomegaly. Gallbladder: Surgically absent. Spleen: Mild splenomegaly. Pancreas: Normal size. No surrounding inflammation. Adrenals: Stable bilateral adrenal adenomas. Kidneys: Bilateral renal cortical atrophy and bilateral renal cysts. Stable. Bladder: Diffuse thickening of the urinary bladder. Marked enlargement of the prostate gland with indentation of the bladder base. Bowel: Colonic diverticulosis without diverticulitis. Appendix: The appendix is not identified. There is no inflammatory process identified in the right lower quadrant to suggest appendicitis. Lymph nodes: Unremarkable. Vasculature: Mild diffuse atherosclerotic calcifications are noted. Peritoneum / Retroperitoneum: Unremarkable Bones: Irregularity of the inferior endplate of the L2 and superior endplate of the L3 vertebrae suggestive of possible infection. Multilevel disc space narrowing. CT/Abdomen/Pelvis without Cont IMPRESSION: Stable examination. There is evidence of irregularity of the inferior endplate of the L2 vertebrae and superior endplate of the L3 vertebrae. Infectious process should be ruled out. Reading Location: [id number]
--- NOTE | 2025-06-23 11:14 | ED.VIS.BACK ---
HPI History of Present Illness Chief Complaint: Back Detail of Chief Complaint: Back pain Informant: patient Narrative Narrative: Patient presents to the emergency department complaint of back pain that was severe last night. Had remote history of a fall in April 16 where he had a pelvic fracture. Was brought into the emergency department for back pain June [address] scan that showed an L3 compression fracture. Last night he had a hard time sleeping because of back pain and finally gave the Percocet this morning. EMS was called to bring him in because he was having a hard time walking even with his rollator. Patient gets home hemodialysis which needs to be done today. Patient also on Coumadin for history of mechanical aortic valve and history of A-fib. He has not had any recent falls or injuries to his back. [facility] Medical History Pleural effusion associated with hepatic disorder ABLA (acute blood loss anemia) Anemia requiring transfusions Atherosclerotic heart disease of [place] coronary artery without angina pectoris Cirrhosis HLD (hyperlipidemia) Other specified cardiac dysrhythmias ESRD (end stage renal disease) on dialysis CKD stage G5/A1, GFR <15 and albumin creatinine ratio <30 mg/g Sepsis Vitamin D insufficiency Polyneuropathy Mild cognitive impairment Epilepsy long term (current) use of 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 History of rheumatic fever as a child COVID-19 Infectious endocarditis Non-ST elevation (NSTEMI) myocardial infarction CAD (coronary artery disease) History of pacemaker Coagulopathy Airway intubation performed without difficulty Cardiopulmonary arrest with successful resuscitation Hypothyroidism (acquired) Abnormal results of thyroid function studies Hyperthyroidism MIA (obstructive sleep apnea) Dyspnea Non-rheumatic mitral regurgitation Non-rheumatic mitral valve stenosis Iron deficiency History of diffuse large B-cell lymphoma Anemia in chronic kidney disease Pure hypercholesterolemia Biventricular cardiac pacemaker in situ (~05/26/16) Encounter for long-term (current) use of high-risk medication 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, 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 TIA (transient ischemic attack) (~11/19/15) History of DVT (deep vein thrombosis) Gout Paroxysmal ventricular tachycardia Atrial flutter Cardiomyopathy in disease classified elsewhere MRSA (methicillin resistant Staphylococcus aureus) infection History of non-Hodgkin's lymphoma Endocarditis due to Staphylococcus Benign essential hypertension Home Medications ?Medication ?Instructions ?Recorded ?Last Taken ?Type levothyroxine 75 mcg tablet 75 mcg PO DAILY thyroid 08/24/21 12/16/24 History vitamin B complex-vitamin C-folic 1 tab PO DAILY vitamin 01/10/22 12/16/24 History acid 0.8 mg tablet (Nephro-Baltazar) doxycycline hyclate 100 mg tablet 100 mg PO BID infection 11/27/22 12/16/24 History fluconazole 200 mg tablet 200 mg PO DAILY 06/11/23 12/16/24 History albuterol sulfate 90 mcg/actuation 2 puff inhalation Q4-6H PRN 03/19/24 Unknown History aerosol inhaler shortness of breath or wheezing cyclobenzaprine 10 mg tablet 10 mg PO BID 05/28/24 12/16/24 History pantoprazole 40 mg tablet,delayed 40 mg PO QAM #90 tabs 12/01/24 12/16/24 Rx release warfarin 1 mg tablet (Jantoven) 2 mg PO .[place] 12/16/24 12/16/24 History warfarin 2 mg tablet 1 mg PO .-sun12/16/24 12/15/24 History amoxicillin 500 mg capsule 2,000 mg PO DAILY PRN DENTAL 12/17/24 Unknown History TREATMENT triamcinolone acetonide 0.1 % 1 applic topical BID PRN SKIN 12/17/24 Unknown History 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 lactulose 10 gram/15 mL oral 20 ml PO QDAY 01/28/25 Unknown History solution (Constulose) metoclopramide HCl 5 mg tablet 2.5 mg (1/2 x 5 mg) PO QAC #50 tabs 03/17/25 Unknown Rx midodrine 10 mg tablet See Rx Instructions PO .COMPLEX To 03/25/25 Unknown History keep BP up during dialysis alprazolam 1 mg tablet (Xanax) 1 mg PO QHS Sleep 05/27/25 Unknown History sucroferric oxyhydroxide 500 mg 500 mg PO TID To reduce phosphorus 05/27/25 Unknown History chewable tablet (Velphoro) in blood amino acids-protein hydrolysate 16 30 ml PO DAILY 06/23/25 Unknown History gram-100 kcal/30 mL oral liquid (Liquacel) docusate sodium 100 mg capsule 100 mg PO DAILY 06/23/25 Unknown History (Colace) docusate sodium 100 mg capsule 200 mg PO QHS 06/23/25 Unknown History (Colace) Allergy/AdvReac Type Severity Reaction Status Date / Time No Known Allergies Allergy Verified 06/23/25 10:22 Family History Father CAD (coronary artery disease) CABG Brother CAD (coronary artery disease) CABG Mother Diabetes Sister Breast cancer Diabetes Sister Cancer breast Diabetes Surgical History History of esophagogastroduodenoscopy (EGD) History of colonoscopy S/P arteriovenous (AV) fistula repair History of mechanical aortic valve replacement (~08/24/03) History of heart valve replacement with mechanical valve History of atrioventricular chiquita ablation History of heart valve replacement with mechanical valve History of evacuation of hematoma History of cholecystectomy History of appendectomy dual chamber pacemaker implantation (~10/2010) History of aortic valve replacement (~08/2003) History of mitral valve repair (~08/24/03) History of mechanical aortic valve replacement (~1986) Social History household members: spouse housing: house current occupational status: retired current occupational exposures/hazards: No history of recent travel: No Smoking Status: Never smoker alcohol intake: never substance use type: does not use caffeine: No what type of physical activity do you participate in: weight training and other details: Nustep frequency: 3-4 times per week duration: 45-60 minutes/day seatbelt use: always do you feel safe at home: Yes ROS ROS ED Review of Systems ROS Unobtainable: other Constitutional Constitutional ED: Reports lethargy; Denies chills, fever(s), sweats or weight loss Eyes Eyes: Denies blurry vision, change in vision or diplopia ENT ENT ED: Denies rhinorrhea or sore throat Cardiovascular Cardiovascular: Denies chest pain, orthopnea or racing heartbeat Respiratory/Chest Respiratory/Chest: Reports dyspnea and dyspnea on exertion; Denies cough, orthopnea or sputum Gastrointestinal Gastrointestinal: Denies abdominal pain, diarrhea, nausea or vomiting Genitourinary Genitourinary ED: Denies dysuria, hematuria or urinary frequency Musculoskeletal Musculoskeletal: Reports back pain; Denies arthralgias, myalgias or neck pain Integumentary Denies abscess, Abrasions or rash Neurologic Neurologic: Denies headache(s) or weakness Psychiatric Psychiatric: Denies anxiety, depression or suicidal thoughts Endocrine Endocrinology: Denies polydipsia, polyphagia or polyuria Hematologic/Lymphatic Hematologic/Lymphatic: Denies easy bleeding, easy bruising or lymphadenopathy Allergic/Immunologic Allergic/Immunologic ED: Denies mouth swelling, tongue swelling or urticaria EXAM Physical Exam Const Vital Signs: 06/23/25 10:17 06/23/25 12:16 Temperature 97.5 F L Temperature Source Oral Pulse Rate 85 68 Respiratory Rate 18 18 Blood Pressure 134/54 H 128/49 H Blood Pressure Mean 80 75 Pulse Ox 95 93 Oxygen Delivery Method Room Air Room Air Positive well nourished and well developed General Appearance ED: well developed and NAD HEENT Reports TM's clear and moist mucous membranes normocephalic and atraumatic; Negative for trauma or tenderness Tympanic Membrane ED: Yes TM's clear Eyes PERRL and EOMs intact bilaterally General Eye ED: Negative for pale conjunctiva or scleral icterus Neck no lymphadenopathy, supple and no JVD General: Negative for tenderness Chest Wall inspection of chest normal and palpation of chest normal Chest: Negative for tenderness Resp normal respiratory effort and clear to auscultation bilaterally Effort and Inspection: Negative for respiratory distress or pain with movement Auscultation: Negative for rhonchi, wheezes or diminished lung sounds Cardio regular rate, regular rhythm, S1 normal heart sound, S2 normal heart sound and no murmurs Peripheral Pulses: pulses 2+ throughout GI normal to inspection, nondistended, normoactive bowel sounds, soft to palpation, non-tender, non-distended and no masses Back/Spine no CVA tenderness and no thoracic nor lumbar tenderness Back/Spine Narrative: Tenderness palpation diffusely over lumbar spine. There is no ecchymosis or bruising. No erythema or warmth. Negative straight leg raises. Deep tendon reflexes plus 2 out of 4 bilaterally at the patella and Achilles. Normal L5 extension bilaterally. Normal sensation to light touch. Extremity normal to inspection General Extremety ED: Negative for edema General Extremity: Negative for edema Neuro oriented x3, CN's II-XII intact bilaterally, no sensory deficits noted and gait normal Sensorium / Orientation: awake, alert, oriented to person, oriented to place and oriented to time Motor Exam: strength 5/5 throughout and strength abnormal Psych mental status grossly normal Skin no rashes or lesions noted and no wounds MDM MDM MDM Narrative Medical decision making narrative: Patient presents with complicated medical history and ongoing back pain. Seen in the emergency department about a week ago and had a CT scan that showed an L3 compression fracture. Severe pain last night. No fever. Patient does home dialysis. He has a artificial aortic valve and is on chronic Coumadin therapy. IV line established. CBC with differential, 12.0 with hemoglobin 10.7 and platelet count of 146. Chemistries unremarkable. BUN was 43 and creatinine 5.88. AST was 41 with an ALT of 17 and alk phos of 515. Patient had a CT scan of the abdomen pelvis read by radiology as evidence of irregularity of the inferior endplate of L2 vertebrae and superior endplate of L3 vertebrae and infectious process should be ruled out. Case was discussed with hospitalist who recommended transfer to a tertiary care center as we do not have ability to perform biopsy of the area and patient will likely require back specialist which is not available here at this time. Dr. Jansen also spoke with Dr. March who did not recommend using antibiotics until biopsy results were obtained. Patient already currently on chronic doxycycline and Diflucan. Discussed this with patient's who is medical decision maker for him. I discussed case with [facility] Internal medicine physician who accepted transfer to their facility. We will be awaiting a bed for transfer. Lab Data Attestation: I reviewed the patient's lab results. Labs: Laboratory Results - last 24 hr 06/23/25 06/23/25 10:35 12:30 WBC 12.0 H RBC 3.41 L Hgb 10.7 L Hct 33.6 L MCV 98.5 H MCH 31.4 MCHC 31.8 L RDW Std Deviation 68.0 H RDW Coeff of Jennifer 18.8 H Plt Count 146 L MPV 11.8 Immature Gran % (Auto) 0.500 Neut % (Auto) 68.2 Lymph % (Auto) 15.5 L [place] % (Auto) 10.4 H Eos % (Auto) 4.8 Baso % (Auto) 0.6 Absolute Neuts (auto) 8.2 H Absolute Lymphs (auto) 1.85 Nucleated RBC % 0 Platelet Estimate SLT DEC Polychromasia 1+ Anisocytosis 1+ ESR 91 H PT 25.6 H INR 2.3 Sodium 135 Potassium 3.5 Chloride 91 L Carbon Dioxide 28.0 Anion Gap 16 H BUN 43 H Creatinine 5.88 H Estim Creat Clear Calc 9.99 L* Est GFR (MDRD) Non-Af 9 L BUN/Creatinine Ratio 7.3 L Glucose 103 H Calcium 9.5 Total Bilirubin 0.76 AST 41 H ALT 17 Alkaline Phosphatase 515 H Total Protein 7.2 Albumin 3.4 Globulin 3.8 Albumin/Globulin Ratio 0.9 Radiography Diagnostic Testing: Clinical Impression(s) from Imaging Studies Abdomen/Pelvis CT 06/23/25 11:14 IMPRESSION: Stable examination. There is evidence of irregularity of the inferior endplate of the L2 vertebrae and superior endplate of the L3 vertebrae. Infectious process should be ruled out. Reading Location: [id number] Discharge Plan Triage Chief Complaint: Back ED Provider: Amy Sellers Dx/Rx/DC Orders Clinical Impression: Back pain, Leukocytosis, Weakness Prescriptions: No Action alprazolam [Xanax] 1 mg tablet 1 mg PO QHS doxycycline hyclate 100 mg tablet 100 mg PO BID fluconazole 200 mg tablet 200 mg PO DAILY cyclobenzaprine 10 mg tablet 10 mg PO BID albuterol sulfate 90 mcg/actuation HFA aerosol inhaler 2 puff inhalation Q4-6H PRN (Reason: shortness of breath or wheezing) Patient Comments: pt hasnt taken in over year metoclopramide HCl 5 mg tablet 2.5 mg PO QAC Qty: 50 1RF Rx Instructions: administer 30 minutes before meals midodrine 10 mg tablet See Rx Instructions PO .COMPLEX Patient Comments: Take up to 4 tabs on dialysis days Rx Instructions: orally; up to 4 tabs on dialysis days (-) Velphoro 500 mg tablet,chewable 500 mg PO TID levothyroxine 75 mcg tablet 75 mcg PO DAILY Nephro-Baltazar 0.8 mg tablet 1 tab PO DAILY warfarin [Jantoven] 1 mg tablet 2 mg PO .[place] Protocol: Dose Management Condition: Sunday Dose/Route: 2 mg Instruction: 1 x 2 mg tablet Condition: Sunday Dose/Route: 1 mg Instruction: 1 x 1 mg tablet Condition: Sunday Dose/Route: 1 mg Instruction: 1 x 1 mg tablet Condition: Sunday Dose/Route: 1 mg Instruction: 1 x 1 mg tablet Condition: Dose/Route: 1 mg Instruction: 1 x 1 mg tablet Condition: Sunday Dose/Route: 1 mg Instruction: 1 x 1 mg tablet Condition: Sunday Dose/Route: 2 mg Instruction: 1 x 2 mg tablet Protocol Text: Adjustment Start Date: Sunday06/22/25 INR Value: 3.4 INR Date: 06/22/25 Recheck Date: 06/29/25 Patient Comments: BASED ON INR warfarin 2 mg tablet 1 mg PO . Protocol: Dose Management Condition: Sunday Dose/Route: 2 mg Instruction: 1 x 2 mg tablet Condition: Sunday Dose/Route: 1 mg Instruction: 1 x 1 mg tablet Condition: Sunday Dose/Route: 1 mg Instruction: 1 x 1 mg tablet Condition: Sunday Dose/Route: 1 mg Instruction: 1 x 1 mg tablet Condition: Dose/Route: 1 mg Instruction: 1 x 1 mg tablet Condition: Sunday Dose/Route: 1 mg Instruction: 1 x 1 mg tablet Condition: Sunday Dose/Route: 2 mg Instruction: 1 x 2 mg tablet Protocol Text: Adjustment Start Date: Sunday06/22/25 INR Value: 3.4 INR Date: 06/22/25 Recheck Date: 06/29/25 Patient Comments: BASED ON INR lactulose [Constulose] 10 gram/15 mL solution 20 ml PO QDAY amoxicillin 500 mg capsule 2,000 mg PO DAILY PRN (Reason: DENTAL TREATMENT) Rx Instructions: TAKE 1 HOUR PRIOR TO TREATMENT triamcinolone acetonide 0.1 % lotion 1 applic topical BID PRN (Reason: SKIN 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) Liquacel 16-100 gram-kcal/30 mL liquid 30 ml PO DAILY docusate sodium [Colace] 100 mg capsule 200 mg PO QHS docusate sodium [Colace] 100 mg capsule 100 mg PO DAILY pantoprazole 40 mg tablet,delayed release (DR/EC) 40 mg PO QAM Qty: 90 3RF Primary Care Provider: David Menjivar Referrals: David Menjivar DO [Primary Care Provider] - Print Language: Divehi Disposition Disposition: DC/Tx to Another Type of HCF
[2025-06-23 11:22] LABS: Hematocrit 33.6 % (40-54); Hemoglobin 10.7 g/dL (13.0-16.5); Immature Granulocytes Count 0.060 X10^3/uL (0.0-0.0); Mean Corp Hgb Conc 31.8 g/dL (32-36); Mean Corpuscular Volume 98.5 fL (80-94); Mean Platelet Vol. 11.8 fl (6.2-12.0); NRBC Flagged by Analyzer 0 % (0-5); POSITIVE MORPHOLOGY YES; Platelet Count 146 K/mm3 (150-450); RBC Distribution Width CV 18.8 % (11.6-14.6); RBC Distribution Width SD 68.0 fl (35.1-43.9); Red Blood Count 3.41 M/mm3 (4.6-6.2); White Blood Count 12.0 K/mm3 (4.4-11.0)
[2025-06-23 11:28] LABS: Differential Indicated SCAN CRITERIA MET
[2025-06-23 11:36] LABS: Prothrombin Time (Protime)PT. 25.6 SECONDS (11.7-14.9)
[2025-06-23 11:48] LABS: AST(SGOT) 41 U/L (<=37); Alanine Aminotransfer ALT/SGPT 17 U/L (<=46); Albumin, Serum 3.4 g/dL (3.4-4.8); Alkaline Phosphatase 515 U/L (40-129); Anion Gap 16 (5-15); BUN 43 mg/dL (4-19); BUN/Creat Ratio 7.3 RATIO (10-20); Calcium,Total 9.5 mg/dL (7.6-11.0); Carbon Dioxide 28.0 mmol/L (21.0-32.0); Chloride 91 mmol/L (98-108); Estimated Creatinine Clearance 9.99 ml/min (50-250); Globulin 3.8 g/dL (2.2-4.2); Glucose 103 mg/dL (70-99); Potassium 3.5 mmol/L (3.3-5.1)
[2025-06-23 11:53] LABS: Anisocytosis 1+; Polychromasia 1+
[2025-06-23 14:29] LABS: CRP 122.00 mg/L (0.0-3.0)
--- NOTE | 2025-06-23 19:25 | CM.ED ---
Social Work SW met with patient and patient . stated they will be transferring patient. states she is in agreement with plan as she is uncertain what could be causing the pain in his back. states that patient had been more independent until the last week or two when his pain began to escalate. Patient was sleeping during most of visit. No further needs identified at this time. Batsheva Pop, [employer], INTERIOR WALL [employer]SEM[employer]ER
[2025-06-24] VITALS: BP 139/50; PULSE 70; RESP 25; O2SAT 98
[2025-06-24 02:00] VITALS: BP 139/50; PULSE 70; RESP 25; O2SAT 98
[2025-06-24 04:00] VITALS: BP 123/48; PULSE 70; RESP 16; O2SAT 96
[2025-06-24 06:00] VITALS: BP 127/50; PULSE 70; RESP 19; O2SAT 99
--- NOTE | 2025-06-24 07:12 | PCA ---
CALLED [facility] AND TALKED TO RON @ [phone]. SHE SAID CHRISTIAN HAS A BED ASSIGNED TO HIM AND SOON THE DAY SHIFT MANAGER [employer]CH[employer] STARTS THE CLEANING PROCESS SHE WILL CALL ME TO SET TRANSPORT. SHE APOLOGIZED AND SAID THAT THEY ONLY HAD TWO HOUSEKEEPERS AT NIGHT.
--- NOTE | 2025-06-24 07:52 | PCA ---
RON CALLED AND HAS A BED ASSIGNMENT RM [id number]- BED 2 RIDE WILL BED HER IN 45 MINS- 60 MINS ([phone])
[2025-06-24 08:00] VITALS: BP 135/52; PULSE 71; RESP 22; O2SAT 91
--- NOTE | 2025-06-24 08:09 | ED.RN ---
CAlled and spoke with Bre about transfer. Pt is aware will be coming in prior to transfer.
[2025-06-24 08:45] VITALS: BP 135/52; PULSE 71; RESP 22; TEMP 36.4; O2SAT 91
== END 2025-06-24 08:47 | disposition short-term general hospital (02) ==
PROVIDERS: Emergency Provider Emergency Medicine; PCP Family Medicine; Visit Provider Emergency Medicine
DX: M54.9 Dorsalgia, unspecified (principal); I12.0 Hypertensive chronic kidney disease with stage 5 chronic kidney disease or end stage renal disease; N18.6 End stage renal disease; I42.9 Cardiomyopathy, unspecified; R53.1 Weakness; E78.00 Pure hypercholesterolemia, unspecified; I25.10 Atherosclerotic heart disease of native coronary artery without angina pectoris; D72.829 Elevated white blood cell count, unspecified; Z79.01 Long term (current) use of 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; Z86.718 Personal history of other venous thrombosis and embolism; I25.2 Old myocardial infarction; Z79.51 Long term (current) use of inhaled steroids; Z79.899 Other long term (current) drug therapy; Z86.16 Personal history of COVID-19; Z86.73 Personal history of transient ischemic attack (TIA), and cerebral infarction without residual deficits; Z95.0 Presence of cardiac pacemaker
CPT/HCPCS: 74176; 80053; 85025; 85610; 85652; 86140; 99285; A4216

== ENCOUNTER → 2025-07-20 | Outpatient (REF) | payer MEDICARE, OTHER, SELFPAY ==
--- OUTSIDE RECORDS SUMMARY | 2025-07-20 11:28 | XMS RPT_ITS | CCD ---
Author Organization [facility] Care Team Providers Care Radiator Specialist Name Role Phone GIO Cohen, Meron Goldberg Unavailable Unavailabl e GIO Cohen, Meron Goldberg Unavailable Unavailabl e PROVIDER, UNKNOWN Admitting Unavailable PROVIDER, UNKNOWN Attending Unavailable PROVIDER, UNKNOWN Admitting Unavailable PROVIDER, UNKNOWN Attending Unavailable Dr. Vinny Atkinson Primary Care Provider Dr. Vinny Atkinson Referring Provider Linda CANVAS GOODS MAKER, CANVAS GOODS MAKER-C Esa Norwood Attending Provider Isis Arce Attending Provider Unavailable Dr. Ford Wen Attending Provider Dr. Ford eWn Referring Provider MD Bruce Calderon Referring Provider Unavailable Dr. Timmy Miranda Attending Provider Dr. Lenora Victoria Referring Provider Dr. Marquis Gomes Emergency Provider [phone] Dr. Lenora Victoria Admit Provider Dr. Ford March Other Provider Dr. Jd Weeks Attending Provider Dr. Jd Weeks Other Provider Dr. Bruce Calderon Other Provider Dr. Siddharth Chowdhury Other Provider Dr. Siddharth Chowdhury Attending Provider [phone] Alejandra BUSTOS, JULI-C Sue Attending Provider [phone] Alejandra BUSTOS, JULI-C Sue Referring Provider Alejandra BUSTOS, CANVAS GOODS MAKER-C Sue Other Provider Dr. Isaac Min Attending Provider Dr. Vinny Atkinson Primary Care Provider Dr. Vinny Atkinson Referring Provider Isis Arce Attending Provider Unavailable Jeff Grullon MD Unavailable Vinny Atkinson MD Primary Care Provider [facility] MB/Karthikeyan KAMARA Unavailable Bruce Calderon DO Unavailable Isaac Min MD Unavailable Dr. Jodi Friedman Emergency Provider Dr. Ligia Peralta Admit Provider Unavailable Fabian, Dr. Morel Attending Provider Unavailable Fabian, Dr. Morel Other Provider Unavailable Dr. Rolo Mireles Other Provider Norm, Dr. Gates Attending Provider Dr. Vinny Atkinson Primary Care Provider Dr. Ford Wen Attending Provider Dr. Vinny Atkinson Primary Care Provider Dr. Vinny Atkinson Referring Provider Dr. Bruce Calderon Other Provider Dr. Ligia Peralta Referring Provider Unavailable Dr. Timmy Miranda [...] Provider Dr. Jodi Friedman Emergency Provider Dr. Ligia Peralta Admit Provider Unavailable Fabian, Dr. Morel Attending Provider Unavailable Fabian, Dr. Morel Other Provider Unavailable Dr. Ajith Mireles Other Provider Dr. Bruce Calderon Other Provider Dr. Jeff Grullon Attending Provider Dr. Nayeli Calderon Referring Provider Dr. Pako Valadez Referring Provider Dr. Kody Zheng Attending Provider Dr. Pako Valadez Attending Provider Dr. Vinny Atkinson Primary Care Provider Dr. Bruce Calderon Other Provider Dr. Vinny Atkinson Primary Care Provider Dr. Vinny Atkinson Referring Provider Dr. Vinny Atkinson Referring Provider Best [employer] GOODS MAKER, CANVAS GOODS MAKER-C Deja Goldberg Attending Provider [phone] Dr. Castro Ferrara Primary Care Provider Dr. Timmy Miranda Attending Provider Dr. Jeff Grullon Attending Provider Isis Arce Attending Provider Unavailable Jeff Grullon MD Unavailable Vinny Atkinson MD Primary Care Provider Johnny JACK/CHB, Karthikeyan Unavailable Bruce Calderon DO Unavailable Isaac Min MD Unavailable MD Claudio Garrison Emergency Provider Dr. Karthikeyan Rothman Admit Provider Dr. Karthikeyan Rothman Attending Provider Dr. Karthikeyan Rothman Other Provider Dr. Kody Zheng Attending Provider [phone] Dr. Kody Zheng Other Provider [phone] Bruce Calderon Other Provider Dr. Mimi Centeno Other Provider Dr. Mimi Centeno Attending Provider Dr. Vinny Atkinson Referring Provider [phone] Timmy Miranda Attending Provider [phone])[phone] Dr. Castro Ferrara Primary Care Provider [phone]([facility])[phone] Jeff Grullon Attending Provider [phone] MD Claudio Garrison Emergency Provider Dr. Karthikeyan Rothman Admit Provider Dr. Karthikeyan Rothman Attending Provider Dr. Karthikeyan Rothman Other Provider Dr. Kody Zheng Attending Provider [phone])[phone] Dr. Kody Zheng Other Provider 1([facility])[phone] Bruce Calderon Other Provider Dr. Mimi Centeno Other Provider Dr. Mimi Centeno Attending Provider Dr. Castro Ferrara Attending Provider Dr. Vinny Atkinson Referring Provider Dr. Castro Ferrara Primary Care Provider Dr. Mimi Centeno Referring Provider [phone])[phone] Castro Ferrara Referring Provider Dr. Niels Flores Attending Provider Alejandra BUSTOS, JULI-Eileen Rogers Attending Provider Castro Ferrara DO Primary Care Provider Dr. Castro Ferrara Primary Care Provider Dr. Jeff Grullon Attending Provider Best BUSTOS, JULI-Eileen Goldberg Attending Provider [phone] Dr. Ford Wen Attending Provider Dr. Ford Wen Referring Provider Dr. Ford Wen Other Provider Dr. Castro Ferrara Primary Care Provider [phone] Dr. Jeff Grullon Attending Provider MD Claudio Garrison Emergency Provider Dr. Karthikeyan Rothman Admit Provider Dr. Karthikeyan Rothman Attending Provider Dr. Karthikeyan Rothman Other Provider Dr. Kody Zheng Attending Provider [phone] Dr. Kody Zheng Other Provider [phone] Bruce Calderon Other Provider Dr. Mimi Centeno Referring Provider Dr. Mimi Centeno Other Provider Dr. Mimi Centeno Attending Provider Dr. Castro Ferrara Attending Provider Dr. Castro Ferrara Referring Provider Dr. Niels Flores Attending Provider [phone] AMY Roberts NP Attending Provider AMY Jewell NP Attending Provider [phone] Dr. Ford Wen Attending Provider Dr. Ford Wen Referring Provider Dr. Ford Wen Other Provider Dr. Castro Ferrara Primary Care Provider MD Claudio Garrison Emergency Provider Dr. Karthikeyan Rothman Admit Provider Dr. Karthikeyan Rothman Other Provider Norm, Dr. Gates Other Provider Dr. Bruce Calderon Other Provider Dr. Mimi Centeno Other Provider Norm, Dr. Gates Attending Provider [phone] Mimi Centeno Referring Provider Bertha KEMP, PASamantaC Trina Attending Provider Dr. Timmy Miranda Attending Provider Aniya Box Attending Provider Unavailable Mitchel NIX, Jeff Roberts Unavailable Morgan GUERO/CHBKarthikeyan Unavailable Bruce Calderon DO Unavailable Isaac Min MD Unavailable Castro Ferrara DO Primary Care Provider Dr. Castro Ferrara Primary Care Provider [phone] Dr. Castro Ferrara Attending Provider [phone] Castro Ferrara Referring Provider Dr. Karthikeyan Turner Attending Provider Linda [employer]AS GOODS MAKER, CANVAS GOODS MAKER-Eileen Norwood Attending Provider Dr. Castro Ferrara Primary Care Provider [phone] Dr. Castro Ferrara Attending Provider [phone] Castro Ferrara Referring Provider Dr. Castro Ferrara Primary Care Provider [phone] Dr. Castro Ferrara Referring Provider [phone] Roof CANVAS GOODS MAKER, CANVAS GOODS MAKER-C Esa Norwood Attending Provider Dr. Castro Ferrara Attending Provider Dr. Timmy Miranda Attending Provider Isis Arce Attending Provider Unavailable Dr. Isaac Min Attending Provider Dr. Castro Ferrara Primary Care Provider Dr. Castro Ferrara Attending Provider Dr. Castro Ferrara Referring Provider Dr. Niels Flores Attending Provider Roof CANVAS GOODS MAKER, CANVAS GOODS MAKER-C Esa Norwood Attending Provider Mitchel NIX, Jeff Roberts Unavailable Karthikeyan Turner MD Unavailable Niels Flores MD Unavailable Dr. Castro Ferrara DO Primary Care Provider Dr. Castro Ferrara DO Attending Provider Dr. Castro Ferrara DO Referring Provider Dr. Timmy Miranda MD Attending Provider Dr. Timmy Miranda MD Referring Provider [phone] Dr. Diego Reaves DO Attending Provider Dr. Diego Reaves DO Emergency Provider Dr. Diego Reaves DO Referring Provider Dr. Alonso Abdullahi MD Attending Provider Dr. Marquis Gomes DO Attending Provider Dr. Marquis Gomes DO Emergency Provider KELBY CHANCE Attending Provider KELBY CHANCE Referring Provider Dr. Bruce Calderon DO Attending Provider Dr. Bruce Calderon DO Referring Provider Dr. Niels Flores MD Attending Provider [phone] Isis Arce Attending Provider Unavailable Linda CANVAS GOODS MAKER-C, Esa Norwood Attending Provider [phone] Jomar LOPEZ, Dr. Linn Emergency Provider [phone] Karthikeyan Turner MD Unavailable Kvng LOPEZ, Bruce Unavailable Isaac Min MD Unavailable Unavailable Josias LOPEZ, Castro Clemons Primary Care Provider Raymundo Flores MD, Niels Ortega Unavailable Unavailable Josias LOPEZ, Dr. Hernandez Primary Care Provider Josias LOPEZ, Dr. Hernandez Attending Provider Josias LOPEZ, Dr. Hernandez Referring Provider Jomar LOPEZ, Dr. Linn Attending Provider Paulino CANVAS GOODS MAKER-C, Vaishnavi Attending Provider [phone] Paulino CANVAS GOODS MAKER-C, Vaishnavi Referring Provider Alejandra CANVAS GOODS MAKER-C, Sue Attending Provider Josias LOPEZ, Dr. Hernandez Primary Care Provider Josias LOPEZ, Dr. Hernandez Attending Provider Alejandra CANVAS GOODS MAKER-C, Sue Referring Provider Paulino CANVAS GOODS MAKER-C, Vaishnavi Other Provider [phone] Kvng LOPEZ, Bruce Unavailable Isaac Min MD Unavailable Castro Ferrara DO Primary Care Provider Niels Flores MD Unavailable RIKA CASTRO Attending Unavailable CARLY AMNE Admitting Unavailable CONSULT, IP TO NEPHROLOGY [facility] Consulti ng Unavailable CASTRO FERRARA A Primary Care Unavailable MARQUIS GOMES Referring Unavailable SELF, SELF Referring Unavailable CASTRO FERRARA Primary Care Unavailable KELBY CHANCE Attending Unavailable SELF, SELF Referring Unavailable VAISHNAVI FRY Attending Unavailable CASTRO FERRARA Primary Care Unavailable SELF, SELF Referring Unavailable CASTRO FERRARA Primary Care Unavailable KELBY CHANCE Attending Unavailable KAVEH HADLEY Referring Unavailable JOSIAS CASTRO Clemons Primary Care Unavailable CONSULT, NEPHROLOGY Consulting Unavailable NAYELI CASILLAS Admitting Unavailable HODA MOORE Attending Unavailable Josias LOPEZ, Dr. Hernandez Primary Care Provider Josias DO, Dr. Hernandez Attending Provider Dr. Kush Pool MD Emergency Provider Josias DO, Dr. Hernandez Primary Care Provider [facility] , Dr. Hernandez Attending Provider Yrn NIX, Dr. Currie Attending Provider Josias , Dr. Hernandez Primary Care Provider Josias DO, Dr. Hernandez Attending Provider [facility] Dr. Jd LOPEZ Attending Provider Johnny NIX, Dr. Napier Attending Provider Demetrio NIX, Dr. Casillas Primary Care Provider Dr. Vinny Nicholson MD Referring Provider Rachael Grullon MD, Dr. Aguilar Other Provider [phone] Josias LOPEZ, Dr. Hernandez Primary Care Provider Josias DO, Dr. Hernandez Attending Provider Josias DO, Dr. Hernandez Referring Provider Johnny NIX, Dr. Napier Attending Provider Demetrio NIX, Dr. Casillas Primary Care Provider Lyric Atkinson MD, Dr. Casillas Referring Provider Rachael Grullon MD, Dr. Aguilar Other Provider [phone] Jane Jhaveri Attending Provider Jane Jhaveri Referring Provider Dr. Pako Mendoza DO Emergency Provider [phone] Pako Mendoza DO Attending Provider [phone] Amy Viramontes DO Emergency Provider [phone] Kaylin Sosa Lefty Primary Care Provider UnavailJeff Brink MD Unavailable STEPHEN VIRAMONTESUS A Referring Unavailable KAYLIN SOSA Primary Care Unavailable PATEL MURPHY Admitting Unavailable BRUCE BACH Attending Unavailable LIGIA FUENTES Unavailable Kaveh Hadley Attending Unavailable Josias, Castro Primary Care Unavailable Josias, Castro Primary Care Unavailable Amy Viramontes Attending Unavailable Josias, Castro Primary Care Unavailable Pako Mendoza Attending Unavailable Josias, Castro Primary Care Unavailable Josias, Castro Attending Unavailable Alejandra BUSTOS, Sue Referring Unavailable Vaishnavi Bob Consulting Unavailable Josias, Castro Primary Care Unavailable Alejandra CANVAS GOODS MAKER, Sue Attending Unavailable Josias, Castro Primary Care Unavailable Josias, Castro Attending Unavailable Josias, Castro Primary Care Unavailable Josias, Castro Attending Unavailable Josias, Castro Primary Care Unavailable Niels Flores Attending Unavailable Niels Flores Attending Unavailable Josias, Castro Primary Care Unavailable Josias, Castro Primary Care Unavailable Kush Pool Attending Unavailable Josias, Castro Primary Care Unavailable Marquis Gomes Attending Unavailable MICHAELL, PRIYA Referring Unavailable Josias, Castro Primary Care Unavailable PRIYA GUERRA Attending Unavailable Timmy Miranda Referring Unavailable Josias, Castro Primary Care Unavailable Timmy Miranda Attending Unavailable Josias, Castro Referring Unavailable Josias, Castro Attending Unavailable Josias, Castro Primary Care Unavailable RUMMARCUSL JE Attending Unavailable RUMMELL, JE Referring Unavailable Josias, Castro Primary Care Unavailable Josias, Castro Primary Care Unavailable Vaishnavi Bob Referring Unavailable Vaishnavi Bob Attending Unavailable Karthikeyan Turner Attending Unavailable Vinny Atkinson Referring Unavailable Demetrio, Vinny Primary Care Unavailable Jeff Grullon Consulting Unavailable Bruce Calderon Referring Unavailable Bruce Calderon Attending Unavailable Josias, Castro Primary Care Unavailable Constantino Gant Attending Unavailabl e Josias, Castro Primary Care Unavailable Josias, Castro Primary Care Unavailable Josias, Castro Attending Unavailable Josias, Castro Primary Care Unavailable Josias, Castro Attending Unavailable Josias, Castor Primary Care Unavailable Josias, Castor Attending Unavailable Alejandra CANVAS GOODS MAKER, Sue Referring Unavailable Josias, Castro Primary Care Unavailable Jd Weeks Attending Unavailable Josias, Castro Primary Care Unavailable Josias, Castro Referring Unavailable Josias, Castro Attending Unavailable Josias, Castro Primary Care Unavailable Vaishnavi Bob Referring Unavailable Vaishnavi Bob Attending [...] Attending Unavailable Josias, Castro Primary Care Unavailable Castro Ferrara Attending Unavailable Timym Miranda Attending Unavailable Josias, Castro Primary Care Unavailable Josias Castro Referring Unavailable Josias, Castro Primary Care Unavailable Sue Roberts NP Attending Unavailable Josias, Castro Referring Unavailable Josias, Castro Primary Care Unavailable Vaishnavi Bob Attending Unavailable Josias, Castro Referring Unavailable Niels Flores Attending Unavailable Josias, Castro Referring Unavailable Josias, Castro Primary Care Unavailable Josias, Castro Primary Care Unavailable Josias, Castro Referring Unavailable Karthikeyan Turner Attending Unavailable Mark, [place] Attending Unavailable Josias, Castro Referring Unavailable Josias, Castro Primary Care Unavailable Josias, Castro Referring Unavailable Esa Mckeon NP Attending Unavailable Josias, Castro Primary Care Unavailable Josias Castro Referring Unavailable Isis Arce Attending Unavailable Josias, Castro Primary Care Unavailable Josias, Castro Primary Care Unavailable JosiasCastro parra Attending Unavailable JosiasCastro Attending Unavailable Josias, Castro Primary [...] Primary Care Unavailable JosiasCastro parra Attending Unavailable Roberts CANVAS GOODS MAKER, Sue Referring Unavailable Roberts CANVAS GOODS MAKER, Sue Consulting Unavailable JosiasCastro Primary Care Unavailable JosiasCastro parra Attending Unavailable JosiasCastro Primary Care Unavailable Diego Reaves Attending Unavailable JosiasCastro Primary Care Unavailable Constantino Gant Attending Unavailabl e JosiasCastro parra Primary Care Unavailable JosiasCastro parra Attending Unavailable JosiasCastro Primary Care Unavailable JosiasCastro parra Attending Unavailable Josias, Castro Primary Care Unavailable JosiasCastro parra Attending Unavailable JosiasCastro Attending Unavailable JosiasCastro Primary Care Unavailable JosiasCastro parra Primary Care Unavailable Castro Ferrara Attending Unavailable Jane Jhaveri Referring Unavail able JosiasCastro parra Primary Care Unavailable Jane Jhaveri Attending Unavail able JosiasCastro parra Primary Care Unavailable Castro Ferrara Attending Unavailable JosiasCastro parra Primary Care Unavailable Castro Ferrara Attending Unavailable JosiasCastro Primary Care Unavailable Castro Ferrara Attending Unavailable JosiasCastro Primary Care Unavailable JosiasCastro parra Attending Unavailable JosiasCastro parra Attending Unavailable JosiasCastro Primary Care Unavailable JosiasCastro parra Attending Unavailable JosiasCastro Primary Care Unavailable JosiasCastro parra Attending Unavailable Josias, Castro Primary Care Unavailable JosiasCastro parra Attending Unavailable JosiasCastro Primary Care Unavailable JosiasCastro parra Attending Unavailable JosiasCastro parra Primary Care Unavailable JosiasCastro parra Attending Unavailable JosiasCastro Primary Care Unavailable JosiasCastro parra Attending Unavailable JosiasCastro Primary Care Unavailable JosiasCastro parra Attending Unavailable Josias, Castro Primary Care Unavailable JosiasCastro Attending Unavailable JosiasCastro Primary Care Unavailable JosiasCastro parra Attending Unavailable JosiasCastro Primary Care Unavailable JosiasCastro parra Attending Unavailable JosiasCastro Primary Care Unavailable JosiasCastro parra Attending Unavailable JosiasCastro Primary Care Unavailable JosiasCastro Primary Care Unavailable JosiasCastro prara Attending Unavailable JosiasCastro Primary Care Unavailable JosiasCastro parra Attending Unavailable JosiasCastro parra Attending Unavailable JosiasCastro Primary Care Unavailable JosiasCastro parra Primary Care Unavailable Alonso Abdullahi Attending Unavailable Diego Reaves Referring Unavailable Castro Ferrara Attending Unavailable JosiasCastro moy Primary Care Unavailable JosiasCastro moy Attending Unavailable JosiasCastro moy Primary Care Unavailable Castro Ferrara Primary Care Unavailable JosiasCastro moy Attending Unavailable JosiasCastro moy Primary Care Unavailable JosiasCastro moy Attending Unavailable JosaisCastro moy Primary Care Unavailable JosiasCastro parra Attending Unavailable Castro Ferrara Primary Care Unavailable Castro Ferrara Attending Unavailable JosiasCastro moy Primary Care Unavailable Castro Ferrara Attending Unavailable JosiasCastro moy Primary Care Unavailable JosiasCastro moy Attending Unavailable Allergies Allergy Classification Reported Allergen(s) Allergy Type Date of Onset Reaction(s) Facility (2 sources) NKDA drug allergy 04-24-2013 [facility] [employer] Work Phone: (2 sources) NKA drug allergy 04-24-2013 [employer] Work Phone: Medications Current Medications Medication Drug Class(es) Dates Sig (Normalized) Sig (Original) ALPRAZolam 1 mg oral tablet (20 sources) Benzodiazepine Start: 12-18-2024 End: 12-19-2024 take 1 mg by mouth once daily at bedtime 1 mg, Oral, DAILY AT BEDTIME, First dose on Jerrica 12/18/24 at 2100, Until Discontinued Start: 01-18-2024 End: [...] 500 MG PO THREE TIMES A DAY 07 22April 07, 2022 11:00pm April 24, 2022 1:04pm B Hyjmyzr-Z-Dqqmu Acid (NEPHRO-BALTAZAR PO) (11 sources) take 1 tablet by dyana th at bedtime B Uenboxy-T-Ypenk Acid (NEPHRO-BALTAZAR PO) Take 1 tablet by mouth at bedtime. Active B Vwnghzn-B-Sdya c Acid (NEPHRO-BALTAZAR PO) Take by mouth. Active B Crcynub-W-Mxdo c Acid (NEPHRO-BALTAZAR PO) Take by mouth. [...] dyana th every eight hours as needed cyclobenzaprine (FLEXERIL) 10 mg tablet Take 10 mg by mouth three times daily as needed. Suspended take 1 tablet by dyana th every eight hours as needed Cyclobenzaprine 10 MG tablet Take 1 tablet by mouth Every 8 hours as needed. Active docusate sodium 100 mg oral capsule (20 sources) Start: 06-23-2025 Start: 04-24-2016 End: 07-03-2016 Start: 04-24-2016 End: 07-03-2016 take 2 tablets by mouth twice daily COLACE 100 MG CAPS Two tablets by mouth twice daily DOCUSATE SODIUM [id number] Jeff Grullon MD take 2 capsules by m out twice daily, then take 2 capsules by mouth in the morning, then take 4 capsules by mouth at bedtime docusate sodium (COLACE) 50 mg capsule Take 100 mg by mouth two times a day. 100mg in morning, 200mg at bedtime Suspended Docusate Sodium (COLACE PO) Take by mouth 2 times daily. Active Docusate Sodium (COLACE PO) Take by mouth. Active fluconazole 200 mg oral tabl et [...] One tablet by mouth twice daily FUROSEMIDE [id number] Jeff Grullon MD Start: 04-24-2013 End: 02-19-2017 take 1 tablet by mouth once daily as needed LASIX 40 MG TABS One tablet by mouth daily as needed FUROSEMIDE [id number] Patience Mccracken LPN Start: 12-05-2011 End: 01-15-2023 take 1 tablet by mouth twice daily LASIX 20 MG TABS One tablet by mouth twice daily FUROSEMIDE [id number] Oswaldo Ken MD Start: 05-01-2011 take 1 tablet by dyana th once daily LASIX 20 MG TABS One tablet by mouth daily FUROSEMIDE [id number] Philly Molina hydrOXYzine hydrochloride 25 mg oral [...] 12/28/2022 Active metoclopramide 5 mg oral tablet (10 sources) Dopamine-2 Receptor Antagonist Start: 03-17-2025 take 2.5 mg by mouth once daily at breakfast metoclopramide HCl (REGLAN) 5 mg tablet Take 2.5 mg by mouth daily with breakfast. Suspended midodrine hydrochloride 10 m g oral tablet (20 sources) alpha-Adrenergic Agonist Start: [...] 6PM or within 4 hrs of bedtime take 4 tablets by mo uth four times daily midodrine (PROAMATINE) 10 mg tablet Take 10 mg by mouth four times daily. Up to 4 tablets on dialysis on Sunday, Sunday, , and Sunday) Suspended triamcinolone acetonide 1 mg /ml topical lotion (10 sources) Corticosteroid Start: 12-17-2024 warfarin sodium 2 [...] Warfarin Discontinued 6 MG P O ONCE January 18, 2018 12:00am June 20, 2018 [...] mg daily or as directed WARFARIN SODIUM [id number] Jeff Grullon MD Start: 09-05-2013 COUMADIN 1 MG TABS two tablets every evening with a 6mg tablets and as directed WARFARIN SODIUM [id number] Jeff Grullon MD Start: 09-05-2013 End: 06-05-2016 COUMADIN 6 MG TABS This dosa ge includes: 7 mg daily Mon through Sunday, 8 mg on Sat and Sun. WARFARIN SODIUM [id number] Aleisha Alonso RN Start: 09-05-2013 COUMADIN 5 MG TABS 15 mg X 4 days per week and 10 mg X 3 days per week or as directed (dose changes often) WARFARIN SODIUM [id number] Jeff Grullon MD Start: 09-04-2013 COUMADIN 1 MG TABS This dosage includes: 7 mg daily Sun through Sunday, 6.5 mg on Sat and Sun. WARFARIN SODIUM [id number] Aleisha Alonso RN Start: 12-05-2011 End: 06-09-2014 WARFARIN SODIUM 7.5 MG TABS take one and half tablets by mouth every evening WARFARIN SODIUM [id number] Carla Schmid Start: 09-29-2011 COUMADIN 1 MG TABS Take 1 tablet with a 6 mg tablet to = 7 mg a day, except on Sunday take two 1 mg tablets with a 6 to = 8 WARFARIN SODIUM [id number] Aleisha Alonso RN Start: 09-29-2011 take 1 [...] 1 mg to =8 ) WARFARIN SODIUM [id number] Oswaldo Ken MD (20 sources) Start: 06-23-2025 Start: 01-10-2022 Start: 10-27-2020 End: 12-01-2020 Start: [...] One tablet by mouth twice daily ACETAMINOPHEN [id number] Jane Torres PA-C take 1000 mg by mout h twice daily Acetaminophen (TYLENOL PO) Take 1,000 mg by mouth 2 times daily. Active Acetaminophen (T YLENOL PO) Take by mouth. Active acetaminophen 325 mg / oxyCODONE hydrochloride 5 mg oral tablet (3 sources) Opioid Agonist Start: 06-14-2025 End: 06-23-2025 acyclovir 400 mg oral tablet (8 sources) Herpesvirus Nucleoside Analog DNA Polymerase Inhibitor, Herpes Simplex Virus Nucleoside Analog DNA Polymerase Inhibitor, Herpes Zoster Virus Nucleoside Analog DNA Polymerase Inhibitor Start: 11-16-2011 End: 02-26-2012 take 1 tablet by mouth twice daily ACYCLOVIR 400 MG TABS One tablet by mouth twice daily ACYCLOVIR [id number] Aleisha Alonso RN Start: 05-01-2011 End: 10-06-2011 take 1 tablet by mouth twice daily ACYCLOVIR 400 MG TABS One tablet by mouth twice daily ACYCLOVIR [id number] Oswaldo Ken MD [id number] actuat albuter ol 0.09 mg/actuat metered [...] AERS As needed - 90mcg/inh ALBUTEROL SULFATE [id number] Oswaldo Ken MD take 2 puff(s) by in halation every four hours as needed for wheezing albuterol HFA (PROVENTIL HFA, VENTOLIN HFA) 90 mcg/actuation inhaler Inhale 2 puffs as instructed every 4 hours as needed for wheezing/shortness of breath. Suspended allopurinol 100 mg oral tabl et (20 sources) Xanthine Oxidase Inhibitor Start: 08-29-2017 End: 10-31-2021 Start: 05-01-2011 End: 06-05-2016 take 1 tablet by mouth once daily ALLOPURINOL 100 MG TABS One tablet by mouth daily ALLOPURINOL [id number] Philly Molina aluminum hydroxide 40 mg/ml / [...] 200-200 mg and Simethicone 20 mg), Post-op/Post-Proc amino acids-protein hydrolys (LIQUACEL) 16-100 gram-kcal/30 mL liqd (1 source) amino acids-prot ein hydrolys (LIQUACEL) 16-100 gram-kcal/30 mL liqd Take 16-100 g by mouth once daily. Suspended amLODIPine 2.5 mg oral tablet (6 sources) Dihydropyridine Calcium Channel Lloyd Start: 10-29-20 14 End: 06-29-20 16 take 1 tablet by mouth once daily NORVASC 2.5 MG TABS One tablet by mouth daily AMLODIPINE BESYLATE [id number] Jeff Grullon MD ascorbic acid 500 mg chewable tablet (20 sources) Start: 07 End: 07-03-20 Start: 06-05-2016 End: 06-29-2016 take 1 tablet by mouth twice daily ASCORBIC ACID 250 MG TABS One tablet by mouth twice daily ASCORBIC ACID [id number] Jeff Grullon MD ascorbic acid 100 mg [...] TABS One tablet by mouth daily ASPIRIN [id number] Meron Cohen RN Start: 05-01-2011 End: 02-26-2012 take 1 tablet by mouth once daily ASPIRIN EC 81 MG TBEC One tablet by mouth daily ASPIRIN [id number] Gabi Mcconnell RN atropine sulfate 0.025 mg / diphenoxylate hydrochloride 2.5 mg oral tablet (4 sources) Anticholinergic, Cholinergic Muscarinic Antagonist, Antidiarrheal Start: 11-16-2011 End: 02-26-2012 LOMOTIL 2.5-0.025 MG TABS 1 tablet every 4 hours as needed DIPHENOXYLATE-ATROPINE [id number] Oswaldo Ken MD B Complex-Vitamin C-Folic Acid (NEPHRO-BALTAZAR) 0.8 mg tab (1 source) take 1 tablet by mouth once daily B Complex-Vitamin C-Folic Acid (NEPHRO-BALTAZAR) 0.8 mg tab Take 0.8 mg by mouth once daily. Suspended benzonatate (4 sources) Non-narcotic Antitussive Start: 11-16-2011 TESSALON 200 MG CAPS twice daily as needed BENZONATATE [id number] Aleisha Alonso RN Start: 11-16-2011 End: 02-26-2012 TESSALON 200 MG CAPS twice d aily as needed BENZONATATE [id number] Oswaldo Ken MD bisacodyl 5 mg delayed relea se oral tablet (2 sources) Stimulant Laxative Start: 02-15-2025 End: 02-15-2025 calcitriol 0.04334 mg oral c apsule (20 sources) Vitamin [...] 29, 2019 8:50am Start: 06-05-2016 End: 05-29-2019 take 3.125 mg by dyana th twice daily at mealtime carvedilol (COREG) 6.25 mg tablet Take 3.125 mg by mouth twice daily with meals. Suspended cefdinir 300 mg oral capsule (20 sources) [...] tablet by mouth three times daily CEPHALEXIN [id number] Jane Torres PA-C sugar-free cholestyramine resin 4000 mg powder for oral suspension (14 sources) Bile Acid Sequestrant Start: 01-29-2014 End: 06-05-2016 CHOLESTYRAMINE LIGHT 4 GM PACK 1 and 1/2 pack twice daily to = 6 Grams bid CHOLESTYRAMINE LIGHT [id number] Carla Schmid Start: 01-29-2014 QUESTRAN 4 GM PACK 1-1/2 pkts twice daily to equal 6 Gm twice a day CHOLESTYRAMINE [id number] Jeff Grullon MD Start: 01-16-2013 End: 01-21-2013 QUESTRAN 4 GM PACK 1-1/2 pkt s twice daily to equal 6 Gm twice a day CHOLESTYRAMINE [id number] Jeff Grullon MD cinacalcet 30 mg oral [...] mouth every 4 hours as needed GUAIFENESIN-CODEINE [id number] Oswaldo Ken MD Start: 11-16-2011 ROBAFEN AC 100 -10 MG/5ML SYRP 1-2 tbsp by mouth every 4 hours as needed GUAIFENESIN-CODEINE [id number] Aleisha Alonso RN colestipol hydrochloride 5000 mg oral granules (4 sources) Bile Acid Sequestrant Start: 06-09-2011 End: 01-21-2013 COLESTID 5 GM PACK 1 pkg by mouth 2 X daily COLESTIPOL HCL [id number] Oswaldo Ken MD 0.3 ml darbepoetin yonis 0.2 mg/ml prefilled syringe (2 sources) Erythropoiesis-sti mulating Agent Start: 03-03-2025 End: 03-06-2025 24 hr dilTIAZem hydrochloride 180 mg extended release oral capsule (6 sources) Calcium Channel Lloyd Start: 01-21-2013 End: 04-24-2013 take 1 tablet by mouth twice daily CARDIZEM CD 180 MG [id number] One tablet by mouth twice daily DILTIAZEM HCL COATED BEADS [id number] Jeff Grullon MD Start: 05-01-2011 take 1 tablet by dyana th once daily CARDIZEM CD 300 MG [id number] One tablet by mouth daily DILTIAZEM HCL COATED BEADS [id number] Oswaldo Ken MD diphenhydrAMINE hydrochloride 25 mg oral tablet (2 sources) Histamine-1 Receptor Antagonist Start: 02-18-2025 End: 02-20-2025 take 25 mg by mouth every six hours as needed doxycycline monohydrate 100 mg oral capsule (20 sources) Tetracycline-class Drug Start: 02-13-2025 End: 03-06-2025 Start: 12-18-2024 End: 12-19-2024 take 100 mg by mouth every twelve hours 100 mg, Oral, EVERY 12 HOURS, First dose on Jerrica 12/18/24 at 2100, Until Discontinued Start: 12-12-2022 take 1 capsule by mo uth twice daily doxycycline hyclate 100 MG capsule Take 1 capsule by mouth 2 times daily. 12/12/2022 Active Start: 11-27-2022 Start: 01-12-2022 End: 07-18-2022 Start: 01-23-2017 End: 01-23-2018 take 100 mg by mouth every twelve hours DOXYCYCLINE HYCLATE 100 MG CAPS 100 mg po q 12H DOXYCYCLINE HYCLATE [id number] Eli Rajan MD Start: 07-03-2016 End: 01-12-2022 Start: 06-29-2016 End: 02-19-2017 take 1 tablet by mouth twice daily DOXYCYCLINE HYCLATE 100 MG TABS One tablet by mouth twice daily DOXYCYCLINE HYCLATE [id number] Patience Mccracken LPN Drug or medicament (substanc [...] mg injection subq twice daily ENOXAPARIN SODIUM [id number] Jeff Grullon MD Start: 02-16-2016 LOVENOX 100 MG /ML SOLN one subcutaneous injection twice daily ENOXAPARIN SODIUM [id number] Jeff Grullon MD Start: 05-01-2011 End: 10-06-2011 LOVENOX 100 MG/ML SOLN Subcu taneously every morning ENOXAPARIN SODIUM [id number] Oswaldo Ken MD esomeprazole 40 mg delayed release oral capsule (4 sources) Proton Pump Inhibitor Start: 05-01-2011 End: 11-23-2011 take 1 tablet by mouth once daily NEXIUM 40 MG CPDR One tablet by mouth daily ESOMEPRAZOLE MAGNESIUM [id number] Oswaldo Ken MD ferrous sulfate 325 mg [...] 12/18/24 at 1402, Until Sun12/19/24 at 1904, Cough, Congestion 250 ml heparin [...] by topical route as needed SODIUM HYPOCHLORITE [id number] Carla Schmid 24 hr isosorbide mononitrate 30 [...] 10-31-2021 End: 01-12-2022 Start: 08-20-2021 End: 10-31-2021 take 20 g by mouth once daily la ctulose 10 gram/15 mL solution Take 20 g by mouth once daily. Suspended levETIRAcetam 250 mg oral ta blet (20 [...] 02-14-2025 End: 03-06-2025 Start: 04-14-2021 End: 12-19-2024 take 1 capsule by [facility] once daily before breakfast levothyroxine 75 mcg cap Take 75 mcg by mouth daily before breakfast. Suspended lidocaine hydrochloride 0.02 mg/mg topical gel (2 [...] tablet by mouth twice daily METOPROLOL TARTRATE [id number] Jeff Grullon MD Start: 05-12-2013 take 1 tablet by dyana twice daily METOPROLOL TARTRATE 25 MG TABS One tablet by mouth twice daily METOPROLOL TARTRATE [id number] Jane Torrse PA-C Start: 04-24-2013 take 1 tablet by dyana twice daily METOPROLOL TARTRATE 50 MG TABS One half tablet by mouth twice daily METOPROLOL TARTRATE [id number] Jane Torres PA-C MULTI-VITAMIN ORAL (1 source) MULTI-VITAMIN OR AL Take by mouth. Suspended MULTIPLE VITAMIN (2 sources) Start: 06-05-2016 take 1 tablet by mouth once daily DAILY VALUE MULTIVITAMIN TABS One tablet by mouth daily MULTIPLE VITAMIN [id number] Carla Schmid Multivitamin With Folic Acid (20 [...] TABS One tablet by mouth daily NIACIN [id number] Jeff Grullon MD Start: 03-03-2014 End: 06-05-2016 take 1 tablet by mouth once daily NIACIN ER 500 MG CR-TABS One tablet by mouth daily NIACIN [id number] Meron Cohen RN Start: 02-26-2012 take [address] [facility] once daily NIASPAN 500 MG CR-TABS two tablets by mouth daily NIACIN (ANTIHYPERLIPIDEMIC) [id number] Oswaldo Ken MD Start: 11-16-2011 End: 04-22-2013 take 1 tablet by mouth once daily NIASPAN 1000 MG CR-TABS One tablet by mouth daily NIACIN (ANTIHYPERLIPIDEMIC) [id number] Jeff Grullon MD Start: 05-01-2011 take 1 tablet by [facility] twice daily NIASPAN 500 MG CR-TABS One tablet by mouth twice daily NIACIN (ANTIHYPERLIPIDEMIC) [id number] Philly Molina 2 ml ondansetron 2 mg/ml injection (20 sources) Serotonin-3 Receptor Antagonist Start: 04-02-2024 End: 04-02-2024 4 mg, Intravenous, EVERY 4 HOURS NEEDED, Starting on Sun04/02/24 at 1136, Until Sun04/02/24 at 1530, Nausea / Vomiting, Post-op/Post-Proc Start: 10-10-2021 End: 07-18-2022 Start: 11-16-2011 End: 02-26-2012 ZOFRAN 4 MG TABS every 4 emmy rs As needed ONDANSETRON HCL [id number] Oswaldo Ken MD Start: 05-01-2011 End: 10-06-2011 ZOFRAN 4 MG TABS As needed 2 ONDANSETRON HCL [id number] Philly Molina Ondansetron 4mg/2ml (ZOFRAN) injection 4 [...] every 3 hours as needed OXYCODONE HCL [id number] Jeff Grullon MD Start: 04-11-2016 End: 06-23-2016 oxymetazoline hydrochloride 0.5 mg/ml nasal spray (20 sources) Start: 04-06-2022 End: 06-06-2022 Start: 04-06-2022 End: 06-06-2022 Oxymetazoline (Nasal [place] ( Oxymetazoline)) 0.05 % spray,non-aerosol Discontinued 1 SPRAY NASAL THREE TIMES A DAY May 08, 2022 2:39pm June 06, 2022 1:24pm Start: 04-06-2022 End: 06-06-2022 pantoprazole 40 mg delayed r elease oral tablet (20 sources) Proton Pump Inhibitor Start: 02-15-2025 End: 02-18-2025 Start: 08-02-2021 End: 12-19-2024 Start: 09-14-2020 End: 03-01-2021 Start: 09-02-2018 End: 03-06-2025 Start: 06-21-2018 End: 09-03-2018 Perflutren Lipid Microsphere [...] during procedure., Echo Procedure polyethylene glycol 3350 97035 mg powder for oral solution (20 sources) [...] packet by mouth daily POLYETHYLENE GLYCOL 3350 [id number] Jeff Grullon MD Start: 06-05-2016 take 1 dose by mouth once daily MIRALAX PACK one packet by mouth daily POLYETHYLENE GLYCOL 3350 [id number] Carla Goldberg Alam polysaccharide iron complex 150 mg oral capsule (20 sources) Start: 11-01-2017 End: 11-21-2018 Start: 11-01-2017 End: 11-21-2018 Polysaccharide Iron Complex (Ferrex 150) 150 mg iron capsule Discontinued 150 MG PO TWICE A DAY July 29, 2018 9:55am November 21, 2018 3:06pm Start: 07-16-2017 take 1 tablet by dyana th once daily FERREX 150 150 MG CAPS One tablet by mouth daily POLYSACCHARIDE IRON COMPLEX [id number] Ariana Maynard POTASSIUM CHLORIDE JOANNE CR (14 sources) Start: 02-15-2025 End: 02-15-2025 Start: 06-25-2012 End: 04-24-2013 take 1 tablet by mouth once daily KLOR-CON M20 20 MEQ CR-TABS One tablet by mouth daily POTASSIUM CHLORIDE JOANNE CR [id number] Jeff Grullon MD Start: 06-25-2012 take 1 tablet by dayna th once daily KLOR-CON M20 20 MEQ CR-TABS One tablet by mouth daily POTASSIUM CHLORIDE JOANNE CR [id number] Oswaldo Ken MD Start: 12-13-2011 KLOR-CON M20 2 0 MEQ CR-TABS POTASSIUM CHLORIDE JOANNE CR [id number] Aleisha Alonso RN Start: 10-06-2011 take 1 tablet by dyana th once daily POTASSIUM CHLORIDE 20 MEQ PACK One tablet by mouth daily POTASSIUM CHLORIDE [id number] Oswaldo Ken MD Start: 05-01-2011 take 1 tablet by dyana th once daily POTASSIUM CHLORIDE ER 10 MEQ CR-TABS One tablet by mouth daily POTASSIUM CHLORIDE [id number] Philly Molina promethazine (20 sources) Phenothiazine Start: 12-18-2024 End: 12-19-2024 take 1 tablet by mouth every six hours as needed Promethazine HCl (PHENERGAN) tablet 25 mg Start: 06-06-2016 End: 07-03-2016 Start: 06-05-2016 End: 08-28-2016 take 1-2 tablets by mouth every eight hours as needed PROMETHAZINE HCL 12.5 MG TABS one-two tabs by mouth every 8 hours as needed PROMETHAZINE HCL [id number] Jeff Grullon MD ramipril 2.5 mg oral capsule (8 sources) Angiotensin Converting Enzyme Inhibitor Start: 11-10-2013 End: 06-05-2016 take 1 tablet by mouth twice daily ALTACE 2.5 MG CAPS One tablet by mouth twice daily RAMIPRIL [id number] Carla Schmid Start: 05-01-2011 take 1 tablet by dyana th once daily ALTACE 2.5 MG CAPS One tablet by mouth daily RAMIPRIL [id number] Oswaldo Ken MD rifAMPin 300 mg oral capsule (20 sources) Rifamycin Antibacterial Start: 06-05-2016 End: 06-29-2016 rifAXIMin 550 mg oral tablet (20 sources) Rifamycin Antibacterial Start: 01-10-2022 End: 11-28-2025 take 1 tablet by mouth once rifA XIMin, M-1851, 550 MG tablet Take 1 tablet by mouth once. 0 01/15/2023 Discontinued senna leaves (4 sources) Start: 06-05-2016 take 1 tablet by dyana th twice daily as needed [facility] SENNA 8.6 MG TABS One tablet by mouth twice daily as needed SENNOSIDES [id number] Carla Schmid Start: 06-05-2016 End: 06-29-2016 take 1 tablet by mouth twice daily as needed [facility] SENNA 8.6 MG TABS One tablet by mouth twice daily as needed SENNOSIDES [id number] Jeff Grullon MD sennosides, correction 8.6 mg oral tablet (20 sources) Start: [...] 10-30-2018 Start: 06-05-2016 take 1 tablet by dyaan th three times daily SODIUM BICARBONATE 650 MG TABS One tablet by mouth three times daily SODIUM BICARBONATE [id number] Jeff Grullon MD 1000 ml sodium chloride [...] tablet by mouth twice daily SOTALOL HCL [id number] Oswaldo Ken MD Start: 07-04-2012 End: 04-24-2013 take 1 tablet by mouth twice daily SOTALOL HCL 120 MG TABS One tablet by mouth twice daily SOTALOL HCL [id number] Jeff Grullon MD Start: 05-01-2011 take 1 tablet by dyana twice daily SOTALOL HCL (AF) 120 MG TABS One tablet by mouth twice daily SOTALOL HCL AF [id number] Oswaldo Ken MD sucroferric oxyhydroxide 500 mg chewable tablet (20 sources) Start: 12-12-2023 End: 06-23-2025 Start: 08-16-2022 End: 02-24-2025 take 500 mg by mouth twice daily at mealtime Sucroferric Oxyhydroxide (VELPHORO PO) Take 500 mg by mouth 2 times daily. With each meal Active take 500 mg by mouth twice daily at mealtime Sucroferric Oxyhydroxide (VELPHORO PO) Take 500 mg by mouth 2 times daily. With each meal 0 Active sulfamethoxazole 800 mg / trimethoprim 160 mg oral tablet (4 sources) Dihydrofolate Reductase Inhibitor Antibacterial, Sulfonamide Antimicrobial Start: 05-01-2011 End: 10-06-2011 BACTRIM DS 800-160 MG TABS Adc-[id number] SULFAMETHOXAZOLE-TRIMETHOPRIM [id number] Oswaldo Ken MD tamsulosin hydrochloride 0.4 mg [...] 1,500 mg, Intravenous, Administer over 1 Hours, STOCKROOM ASSOCIATE TO PROCEDURE, 1 dose, Starting on Sun04/02/24 at 0000, Until Sun04/02/24 at 0902, Other, Preoperative antibiotic, Order should be timed for day of procedure. 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 Vancomycin is preferred agent for device implants, based on national, community and local ([facility]) MRSA rates., Pre-op/Pre-Proc VITAMIN A TABS (20 sources) Vitamin A Start: 06-27-2016 VITAMIN A PALM ITATE TABS 10,000 IU daily VITAMIN A TABS [id number] Gabi Mcconnell RN Start: 06-27-2016 End: 06-29-2016 VITAMIN A PALMITATE TABS 10, 000 IU daily VITAMIN A TABS [id number] Jeff Grullon MD Start: 06-06-2016 End: 07-03-2016 [...] Complications of surgical procedures or medical care (19 sources) Postoperative hemorrhage; 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: [Other complications of [...] Coronary arteriosclerosis; 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: [Atherosclerotic heart disease of [place] coronary artery without angina pectoris] Onset: 5 10-17-2021 Chronic Deficiency and other anemia (20 [...] 08-28-2021 Chronic Diseases of white blood cells (19 sources) Leukemoid reaction; 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: [Leukocytosis] Onset: 1 [...] infection (20 sources) Viral gastroenteritis due to [place]-like agent; 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: [Acute gastroenteropathy due to [place] agent] Episodic Intestinal obstruction without hernia (4 sources) Stenosis of colon; 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: [Other intestinal obstruction unspecified as to partial versus complete obstruction] Onset: 5 02-17-2025 Episodic Nausea and vomiting (20 sources) Vomiting; 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: [Vomiting, unspecified] 07-08-2021 Episodic Non-Hodgkin's lymphoma (20 sources) Non-Hodgkin's lymphoma (clinical); 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] Onset: 1 10-06-2011 Chronic Non-Hodgkin`s lymphoma (1 source) Personal history of non-Hodgkin lymphomas; 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: [Personal history of non-Hodgkin lymphomas] Onset: 5 Episodic Nutritional deficiencies (20 sources) Vitamin D deficiency; 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: [Vitamin D deficiency, unspecified] Onset: 2 Chronic Other aftercare (20 sources) Long-term current use of anticoagulant; 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: [long term care pharmacist (current) use of 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] 12-06-2022 Episodic Other aftercare (20 sources) nursing home (current) use of 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; 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: [Long-term (current) use of 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] Onset: 5 Episodic Other aftercare (1 source) Long-term current use of antibiotic; 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: [nursing home (current) use of antibiotics] Onset: 5 06-25-2025 Episodic Other aftercare (1 source) Encounter for therapeutic drug level monitoring; 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: [Encounter for therapeutic drug level monitoring] Onset: Episodic Other circulatory disease (2 sources) 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, unspecified; 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: [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, unspecified] Onset: 1 05-01-2011 Chronic Other ROOM INSPECTOR infection and poliomyelitis (1 source) Abscess in epidural space of lumbar spine; 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: [Intraspinal abscess and granuloma] Onset: 5 06-24-2025 Episodic Other connective tissue disease (1 source) Pain in right thigh; 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: [Pain in right thigh] Onset: 5 Episodic Other disorders of stomach and duodenum (16 sources) Persistent vomiting; 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: [Cyclical vomiting syndrome unrelated to migraine] 03-18-2025 Episodic Other fractures (1 source) Compression fracture of lumbar spine; 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: [Wedge compression fracture of unspecified lumbar vertebra, initial encounter for closed fracture] Onset: 5 06-24-2025 Episodic Other fractures (1 source) Wedge compression fracture of unspecified lumbar vertebra, initial encounter for closed fracture; 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: [Lumbar compression fracture, closed, initial encounter ([facility])] Onset: Episodic Other hereditary and degenerative nervous system conditions (20 sources) Impaired cognition; 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: [Mild cognitive impairment, so stated] 10-16-2022 Chronic Other hereditary and degenerative nervous system conditions (20 sources) Mild cognitive impairment, so stated; 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: [Mild cognitive impairment, so stated] Onset: Chronic Other hereditary and degenerative nervous system conditions (12 sources) Essential tremor; 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: [Essential tremor] 08-07-2023 [...] mention of alcohol] Chronic Other liver diseases (16 sources) 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 gastropathy; 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: [Portal hypertension] 03-18-2025 Chronic Other liver diseases (3 sources) Other cirrhosis of liver; Translations: [Other cirrhosis of liver] Onset: 4 Chronic Other liver diseases (2 sources) Portal hypertension; Translations: [Portal hypertension] Onset: 5 Chronic Other liver diseases (9 sources) Enzyme level - finding; Translations: [Elevated [...] disorders (20 sources) Polyneuropathy; Translations: [Polyneuropathy, unspecified] Onset: 5 10-16-2022 Chronic Other nervous system disorders (20 [...] conditions (not mental disorders or infectious disease) (16 sources) CT of chest abnormal; Translations: [Abnormal [...] 1 05-01-2011 Chronic Peripheral and visceral atherosclerosis (16 sources) Disorder of colon; Translations: [Acute infarction of large intestine, extent unspecified] 03-18-2025 Episodic Pleurisy; pneumothorax; pulmonary collapse (20 sources) Pleural effusion; Translations: [Pleural effusion, not elsewhere classified] Onset: 3 03-08-2023 Episodic Pneumonia (20 sources) Bronchopneumonia, unspecified organism; Translations: [Pneumonia] Onset: 1 10-06-2011 Episodic Residual codes; unclassified (20 sources) Obstructive sleep apnea syndrome; Translations: [Obstructive sleep apnea (adult) (pediatric)] Onset: 1 10-17-2021 Chronic Residual codes; unclassified (13 sources) [...] for arrhythmia; Translations: [Other specified postprocedural states] Onset: 5 08-07-2013 Episodic Residual codes; unclassified (20 sources) H/O: respiratory disease; Translations: [Personal history of other specified conditions] 04-16-2022 Episodic Residual codes; unclassified (20 sources) History of ablation of atrioventricular node; Translations: [Other specified postprocedural states] 11-24-2022 Episodic Residual codes; unclassified (16 sources) Early satiety; Translations: [Early satiety] 03-18-2025 Episodic Respiratory failure; insufficiency; arrest (adult) (20 sources) Acute respiratory failure; Translations: [Acute respiratory failure with hypoxia] Episodic Septicemia (except in labor) (20 sources) Sepsis; Translations: [Sepsis, unspecified organism] Onset: 6 Resolved: 6 Episodic Spondylosis; intervertebral disc disorders; other back problems (1 source) Lumbar discitis; Translations: [Discitis, unspecified, lumbar region] Onset: 5 06-25-2025 Chronic Spondylosis; intervertebral disc disorders; other back problems (5 sources) Acute low back pain; Translations: [Acute low back pain] Onset: 5 06-14-2025 Episodic Superficial injury; contusion (20 sources) Contusion [...] Unclassified (2 sources) Warfarin therapy started; Translations: [nursing home (current) use of 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] Onset: 7 02-28-2017 Unclassified (2 sources) Tuberculosis screening ; Translations: [Encounter for screening for respiratory tuberculosis] Onset: 1 10-06-2011 Unclassified (2 sources) Aftercare ; Translations: [Encounter for other specified surgical aftercare] Onset: 6 07-05-2016 Unclassified (2 sources) Drug therapy finding; Translations: [nursing home (current) use of 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] Onset: 6 03-01-2016 Unclassified (2 sources) Long-term drug therapy; Translations: [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) drug therapy] Onset: 1 05-01-2011 Unclassified (1 source) Autogenerated Problem Onset: 5 06-29-2025 Unclassified (1 source) Low back pain, unspecified; Translations: [Low back pain, unspecified] Onset: 5 Unclassified (1 source) Cough, unspecified; Translations: [Cough, [...] hematuria] Onset: 03-09-2016 Resolved: 03-30-2016 03-30-2016 Episodic Lymphadenitis (1 source) Lymphadenopathy; Translations: [Generalized enlarged lymph nodes] Onset: 11-15-2010 06-24-2025 Episodic Malaise and fatigue (20 sources) Fatigue; Translations: [Asthenia] Onset: 12-08-2013 12-08-2013 Episodic Mood disorders (13 sources) Mood disorders Onset: 07-07-2016 Resolved: 07-07-2016 07-07-2016 Mycoses (17 sources) Fungemia; Translations: [Unspecified mycosis] Onset: 09-24-2021 [...] Onset: 05-19-2016 Resolved: 06-26-2016 06-26-2016 Episodic Other aftercare (1 source) Warfarin therapy started; Translations: [nursing home (current) use of 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] Onset: 02-28-2017 06-24-2025 Episodic Other circulatory disease (1 source) Low blood pressure; Translations: [Hypotension, unspecified] Onset: 06-14-2018 06-24-2025 Episodic Other diseases of kidney and ureters (16 sources) Kidney disease; Translations: [Disorder of kidney and ureter, unspecified] Onset: 08-26-2021 08-27-2021 Episodic Other disorders of stomach and duodenum (15 sources) Cyclical vomiting syndrome; Translations: [Cyclical vomiting syndrome unrelated to migraine] Onset: 03-29-2016 Resolved: 06-26-2016 06-26-2016 Episodic Other disorders of stomach and duodenum (1 source) Other diseases of stomach and duodenum; Translations: [Other diseases of stomach and duodenum] Onset: 03-26-2025 Episodic Other gastrointestinal disorders (2 sources) Anterior abdominal wall mass; Translations: [Localized swelling, mass and lump, trunk] Onset: 01-26-2016 03-01-2016 Episodic Hilary-; endo-; and myocarditis; cardiomyopathy (19 [...] Test Name Value Interpretation Reference Range Facility CASE MANAGEMon 07-15-2025 CASE MANAGEM Normal [facility] CNDSon 07-15-2025 CNDS Normal [facility] CONSULT PROGon 07-15-2025 CONSULT PROG Normal [facility] PT panel Coag (PPP)on 2024 INR Coag (PPP) [Relative time] 3.4 {INR} High 0.9-1.3 [facility] Comment on above: Order Comment: Speci men Type: BLOOD SPECIMENOrdering Facility: [facility] Address: [address] [place] [address] Result Comment: Zina min K Antagonist (VKA) Therapeutic Range: INR 2 to 3 (Target INR of 2.5)Note: For patients treated with VKA drugs, such as warfarin, the [employer] 2012 Guideline recommends a therapeutic INR range of 2 to 3 (target INR of 2.5). This recommendation includes high-risk patients with antiphospholipid syndrome with previous arterial or venous thromboembolism, current-generation mechanical or bioprosthetic aortic heart valve replacement.Note: Patients with mechanical aortic valve replacement and additional risk factors for thromboembolic events (atrial fibrillation, previous thromboembolism, LV dysfunction, hypercoagulable conditions) or an older generation mechanical AVR (i.e., ball in-Cage) or any mechanical MVR should have a INR therapeutic range of 2.5 to 3.5 (target INR of 3).Karon NAPOLES, et al. Chest 2012, 141:7S-47SChino RA, et al. [facility] 2017, 70: 252-289 Performed By: #### 3 4528-0 ####[facility] LABORATORYCLIA [id number] [address] STATES OF [facility] PT Coag (PPP) [Time] 33.7 s High 9.7-13.0 [facility] Comment on above: Order Comment: Zach ortega Type: BLOOD SPECIMENOrdering Facility: [facility] Address: [address] [place] [address] Performed By: #### 3 4528-0 ####[facility] CAR[facility]ELCL[facility] [id number] [address] THERAPY NTon 07-15-2025 THERAPY NT Normal [facility] CBC panel Auto (Bld)on 07-14 Erythrocyte distribution width (RBC) [Ratio] 17.3 % High 11.5-15.0 [facility] Comment on above: Order Comment: Zach ortega Type: BLOOD SPECIMENOrdering Facility: [facility] Address: [address] [place] [address] Performed By: #### 5 8410-2 ####[facility] CARMELCLIA [id number] [address] Hematocrit (Bld) [Volume fraction] 29.7 % Low 39.0-51.0 [facility] Comment on above: Order Comment: Zach ortega Type: BLOOD SPECIMENOrdering Facility: [facility] Address: [address] [place] [address] Performed By: #### 5 8410-2 ####[facility] LABORATORYCLIA [id number] [address] Hemoglobin (Bld) [Mass/Vol] 8.9 g/dL Low 13.0-17.0 [facility] Comment on above: Order Comment: Speci men Type: BLOOD SPECIMENOrdering Facility: [facility] Address: [address] [place] [address] Performed By: #### 5 8410-2 ####[facility] LABORATORYCLIA [id number] [address] STATES [facility] MCH (RBC) [Entitic mass] 30.6 pg Normal 26.0-34.0 [facility] Comment on above: Order Comment: Speci men Type: BLOOD SPECIMENOrdering Facility: [facility] Address: [address] [place] [address] Performed By: #### 5 8410-2 ####[facility] LABORATORYCLIA [id number] [address] [place] MCHC (RBC) [Mass/Vol] 30.0 g/dL Low 30.5-36.0 [facility] Comment on above: Order Comment: Speci men Type: BLOOD SPECIMENOrdering Facility: [facility] Address: [address] [place] [address] Performed By: #### 5 8410-2 ####[facility] LABORATORYCLIA [id number] [address] MCV (RBC) [Entitic vol] 102.1 fL High 80.0-100.0 [facility] Comment on above: Order Comment: Speci men Type: BLOOD SPECIMENOrdering Facility: [facility] Address: [address] [place] [address] Performed By: #### 5 8410-2 ####[facility] LABORATORYCLIA [id number] [address] Nucleated RBC (Bld) [#/Vol] 10*3/uL Normal <0.01 [facility] Comment on above: Order Comment: Speci men Type: BLOOD SPECIMENOrdering Facility: [facility] Address: [address] [place] [address] Performed By: #### 5 8410-2 ####[facility] LABORATORYCLIA [id number] [place] [address] [place] Platelet mean volume (Bld) [Entitic vol] 8.9 fL Low 9.0-12.7 [facility] Comment on above: Order Comment: Speci men Type: BLOOD SPECIMENOrdering Facility: [facility] Address: [address] [place] [address] Performed By: #### 5 8410-2 ####[facility] LABORATORYCLIA [id number] [place] [address] [place] Platelets (Bld) [#/Vol] 171 10*3/uL Normal 150-400 [facility] Comment on above: Order Comment: Speci men Type: BLOOD SPECIMENOrdering Facility: [facility] Address: [address] [place] [address] Performed By: #### 5 8410-2 ####[facility] LABORATORYCLIA [id number] [place] [address] [place] RBC (Bld) [#/Vol] 2.91 10*6/uL Low 4.20-6.00 [facility] Comment on above: Order Comment: Speci men Type: BLOOD SPECIMENOrdering Facility: [facility] Address: [address] [place] [address] Performed By: #### 5 8410-2 ####[facility] LABORATORYCLIA [id number] [place] [address] [place] WBC (Bld) [#/Vol] 8.51 10*3/uL Normal 3.70-11.00 [facility] Comment on above: Order Comment: Speci men Type: BLOOD SPECIMENOrdering Facility: [facility] Address: [address] [place] [address] Performed By: #### 5 8410-2 ####[facility] LABORATORYCLIA [id number] [address] [place] CONSULT PROGon 07-14-2025 CONSULT PROG Normal [facility] PT panel Coag (PPP)on 2024 INR Coag (PPP) [Relative time] 2.7 {INR} High 0.9-1.3 [facility] Comment on above: Order Comment: Zach ortega Type: BLOOD SPECIMENOrdering Facility: [facility] Address: [address] [place] [address] Result Comment: Zina min K Antagonist (VKA) Therapeutic Range: INR 2 to 3 (Target INR of 2.5)Note: For patients treated with VKA drugs, such as warfarin, the [place] [employer] 2012 Guideline recommends a therapeutic INR range of 2 to 3 (target INR of 2.5). This recommendation includes high-risk patients with antiphospholipid syndrome with previous arterial or venous thromboembolism, current-generation mechanical or bioprosthetic aortic heart valve replacement.Note: Patients with mechanical aortic valve replacement and additional risk factors for thromboembolic events (atrial fibrillation, previous thromboembolism, LV dysfunction, hypercoagulable conditions) or an older generation mechanical AVR (i.e., ball in-Cage) or any mechanical MVR should have a INR therapeutic range of 2.5 to 3.5 (target INR of 3).Karon NAPOLES, et al. Chest 2012, 141:7S-47SNishdawood RA, et al. [facility] 2017, 70: 252-289 Performed By: #### 1 4979-9, 33817-8 ####[facility] LABORATORYCLIA [id number] [place] [address] [place] PT Coag (PPP) [Time] 27.0 s High 9.7-13.0 [facility] Comment on above: Order Comment: Zach ortega Type: BLOOD SPECIMENOrdering Facility: [facility] Address: [address] [place] [address] Performed By: #### 1 4979-9, 40489-7 ####[facility] LABORATORYCLIA [id number] [place] [address] [place] aPTT PPPon 07-14-2025 aPTT Coag (PPP) [Time] 70.6 s High 23.0-32.4 [facility] Comment on above: Order Comment: Zach ortega Type: BLOOD SPECIMENOrdering Facility: [facility] Address: [address] [place] [address] Performed By: #### 1 4979-9, 35418-9 ####[facility] LABORATORYCLIA [id number] [address] OF [facility] CASE MANAGEMon 07-13-2025 CASE MANAGEM Normal [facility] CBC panel Auto (Bld)on 07-13 Erythrocyte distribution width (RBC) [Ratio] 17.3 % High 11.5-15.0 [facility] Comment on above: Order Comment: Speci men Type: BLOOD SPECIMENOrdering Facility: [facility] Address: [address] [place] [address] Performed By: #### 5 8410-2 ####[facility] LABORATORYCLIA [id number] [address] STATES [facility] Hematocrit (Bld) [Volume fraction] 32.4 % Low 39.0-51.0 [facility] Comment on above: Order Comment: Speci men Type: BLOOD SPECIMENOrdering Facility: [facility] Address: [address] [place] [address] Performed By: #### 5 8410-2 ####[facility] LABORATORYCLIA [id number] [address] [place] Hemoglobin (Bld) [Mass/Vol] 9.9 g/dL Low 13.0-17.0 [facility] Comment on above: Order Comment: Speci men Type: BLOOD SPECIMENOrdering Facility: [facility] Address: [address] [place] [address] Performed By: #### 5 8410-2 ####[facility] LABORATORYCLIA [id number] [address] [place] MCH (RBC) [Entitic mass] 30.5 pg Normal 26.0-34.0 [facility] Comment on above: Order Comment: Speci men Type: BLOOD SPECIMENOrdering Facility: [facility] Address: [address] [place] [address] Performed By: #### 5 8410-2 ####[facility] LABORATORYCLIA [id number] [address] STATES OF [facility] MCHC (RBC) [Mass/Vol] 30.6 g/dL Normal 30.5-36.0 [facility] Comment on above: Order Comment: Speci men Type: BLOOD SPECIMENOrdering Facility: [facility] Address: [address] [place] [address] Performed By: #### 5 8410-2 ####[facility] LABORATORYCLIA [id number] [address] [place] MCV (RBC) [Entitic vol] 99.7 fL Normal 80.0-100.0 [facility] Comment on above: Order Comment: Speci men Type: BLOOD SPECIMENOrdering Facility: [facility] Address: [address] [place] [address] Performed By: #### 5 8410-2 ####[facility] LABORATORYCLIA [id number] [address] Nucleated RBC (Bld) [#/Vol] 10*3/uL Normal <0.01 [facility] Comment on above: Order Comment: Speci men Type: BLOOD SPECIMENOrdering Facility: [facility] Address: [address] [place] [address] Performed By: #### 5 8410-2 ####[facility] LABORATORYCLIA [id number] [address] [place] Platelet mean volume (Bld) [Entitic vol] 9.7 fL Normal 9.0-12.7 [facility] Comment on above: Order Comment: Speci men Type: BLOOD SPECIMENOrdering Facility: [facility] Address: [address] [place] [address] Performed By: #### 5 8410-2 ####[facility] LABORATORYCLIA [id number] [address] Platelets (Bld) [#/Vol] 243 10*3/uL Normal 150-400 [facility] Comment on above: Order Comment: Speci men Type: BLOOD SPECIMENOrdering Facility: [facility] Address: [address] [place] [address] Performed By: #### 5 8410-2 ####[facility] LABORATORYCLIA [id number] [place] [id number] [facility] [place] RBC (Bld) [#/Vol] 3.25 10*6/uL Low 4.20-6.00 [facility] Comment on above: Order Comment: Speci men Type: BLOOD SPECIMENOrdering Facility: [facility] Address: [address] [place] [address] Performed By: #### 5 8410-2 ####[facility] LABORATORYCLIA [id number] [place] [id number] [facility] WBC (Bld) [#/Vol] 9.29 10*3/uL Normal 3.70-11.00 [facility] Comment on above: Order Comment: Speci men Type: BLOOD SPECIMENOrdering Facility: [facility] Address: [address] [place] [address] Performed By: #### 5 8410-2 ####[facility] LABORATORYCLIA [id number] [address] CONSULT PROGon 07-13-2025 CONSULT PROG Normal [facility] CONSULT PROG Normal [facility] CONSULT PROG Normal [facility] PT panel Coag (PPP)on 2024 INR Coag (PPP) [Relative time] 2.1 {INR} High 0.9-1.3 [facility] Comment on above: Order Comment: Speci men Type: BLOOD SPECIMENOrdering Facility: [facility] Address: [address] [place] [address] Result Comment: Zina min K Antagonist (VKA) Therapeutic Range: INR 2 to 3 (Target INR of 2.5)Note: For patients treated with VKA drugs, such as warfarin, the [place] [employer] 2012 Guideline recommends a therapeutic INR range of 2 to 3 (target INR of 2.5). This recommendation includes high-risk patients with antiphospholipid syndrome with previous arterial or venous thromboembolism, current-generation mechanical or bioprosthetic aortic heart valve replacement.Note: Patients with mechanical aortic valve replacement and additional risk factors for thromboembolic events (atrial fibrillation, previous thromboembolism, LV dysfunction, hypercoagulable conditions) or an older generation mechanical AVR (i.e., ball in-Cage) or any mechanical MVR should have a INR therapeutic range of 2.5 to 3.5 (target INR of 3).Karon NAPOLES, et al. Chest 2012, 141:7S-47SChino RA, et al. [facility] 2017, 70: 252-289 Performed By: #### 3 4528-0, 06838-3 ####[facility] CARMELCLIA [id number] [place] [address] [place] [facility] PT Coag (PPP) [Time] 22.1 s High 9.7-13.0 [facility] Comment on above: Order Comment: Zach ortega Type: BLOOD SPECIMENOrdering Facility: [facility] Address: [address] [place] [address] Performed By: #### 3 4528-0, 16073-9 ####[facility] CARMELCLIA [id number] [place] [address] [place] Vancomycin random [Mass/Vol] on 07-13-2025 Vancomycin [Mass/Vol] 15.4 ug/mL Normal 10.0-20.0 [facility] Comment on above: Order Comment: Zach ortega Type: BLOOD SPECIMENOrdering Facility: [facility] Address: [address] [place] [address] Result Comment: Refe rence ranges and high/low indicator flags are provided as general guidelines only. The treating physician must determine appropriate target levels/dosing based on the specific clinical situation. Performed By: #### 4 091-5 ####[facility] CARMELCLIA [id number] [address] [place] aPTT PPPon 07-13-2025 aPTT Coag (PPP) [Time] 61.8 s High 23.0-32.4 [facility] Comment on above: Order Comment: Zach ortega Type: BLOOD SPECIMENOrdering Facility: [facility] Address: [address] [place] [address] Performed By: #### 3 4528-0, 41692-6 ####[facility] LABORATORYCLIA [id number] [address] [place] ALLIED HEALTHon 07-12-2025 ALLIED HEALTH Normal [facility] ALLIED HEALTH Normal [facility] Ammonia Plas-sCncon 07-12-20 25 Ammonia (P) [Moles/Vol] 17 umol/L Normal 16-60 [facility] Comment on above: Order Comment: Speci men Type: BLOOD SPECIMENOrdering Facility: [facility] Address: [address] [place] [address] Performed By: #### 1 6362-6 ####[facility] LABORATORYCLIA [id number] [address] OF [facility] Basic metabolic 2000 panelon 07-12-2025 Anion gap [Moles/Vol] 10 mmol/L Normal 8-15 [facility] Comment on above: Order Comment: Speci men Type: BLOOD SPECIMENOrdering Facility: [facility] Address: [address] [place] [address] Performed By: #### 3 3762-6, 27499-8 ####[facility]ORATORYCLIA [id number] [address] [place] Calcium [Mass/Vol] 9.3 mg/dL Normal 8.5-10.2 [facility] Comment on above: Order Comment: Speci men Type: BLOOD SPECIMENOrdering Facility: [facility] Address: [address] [place] [address] Performed By: #### 3 3762-6, 32454-2 ####[facility]ORATORYCLIA [id number] [address] [place] Chloride [Moles/Vol] 96 mmol/L Low 98-107 [facility] Comment on above: Order Comment: Speci men Type: BLOOD SPECIMENOrdering Facility: [facility] Address: [address] [place] [address] Performed By: #### 3 3762-6, 48496-2 ####[facility]ORATORYCLIA [id number] [place] [address] [place] CO2 [Moles/Vol] 27 mmol/L Normal 22-30 [facility] Comment on above: Order Comment: Speci men Type: BLOOD SPECIMENOrdering Facility: [facility] Address: [address] [place] [address] Performed By: #### 3 3762-6, 84934-7 ####[facility] LABORATORYCLIA [id number] [place] [address] [place] Creatinine [Mass/Vol] 4.95 mg/dL High 0.73-1.22 [facility] Comment on above: Order Comment: Speci men Type: BLOOD SPECIMENOrdering Facility: [facility] Address: [address] [place] [address] Performed By: #### 3 3762-6, 29186-2 ####[facility]ORATORYCLIA [id number] [address] eGFRcr SerPlBld CKD-EPI 2020 11 mL/min/1.73m??? Low >=60 [facility] Comment on above: Order Comment: Speci men Type: BLOOD SPECIMENOrdering Facility: [facility] Address: [address] [place] [address] Result Comment: Faviola mated Glomerular Filtration Rate (eGFR) is calculated using the 2020 CKD-EPI creatinine equation. This equation utilizes serum creatinine, sex, and age as parameters. The creatinine assay has traceable calibration to isotope dilution-mass spectrometry. Refer to KDIGO guidelines for clinical interpretation. In patients with unstable renal function, e.g. those with acute kidney injury, the eGFR may not accurately reflect actual GFR. Performed By: #### 3 3762-6, 97023-8 ####[facility]ORATORYCLIA [id number] [address] [place] Glucose [Mass/Vol] 97 mg/dL Normal 74-99 [facility] Comment on above: Order Comment: Speci men Type: BLOOD SPECIMENOrdering Facility: [facility] Address: [address] [place] [address] Result Comment: The [place] [employer] (ADA) provides guidance for cutoff values for fasting glucose and random glucose. The ADA defines fasting as no caloric intake for at least 8 hours. Fasting plasma glucose results between 100 to 125 mg/dL indicate increased risk for diabetes (prediabetes).Fasting plasma glucose results greater than or equal to 126 mg/dL meet the criteria for diagnosis of diabetes. In the absence of unequivocal hyperglycemia, results should be confirmed by repeat testing. In a patient with classic symptoms of hyperglycemia or hyperglycemic crisis, random plasma glucose results greater than or equal to 200 mg/dL meet the criteria for diagnosis of diabetes.Reference: Standards of Medical Care in Diabetes 2016, [place] [employer]. Diabetes Care. 2016.39(Suppl 1). Performed By: #### 3 3762-6, 66996-5 ####[facility] LABORATORYCLIA [id number] [place] [address] [place] Potassium [Moles/Vol] 4.9 mmol/L Normal 3.7-5.1 [facility] Comment on above: Order Comment: Speci men Type: BLOOD SPECIMENOrdering Facility: [facility] Address: [address] [place] [address] Performed By: #### 3 3762-6, 31380-5 ####[facility]ORATORYCLIA [id number] [place] [address] [place] Sodium [Moles/Vol] 133 mmol/L Low 136-144 [facility] Comment on above: Order Comment: Speci men Type: BLOOD SPECIMENOrdering Facility: [facility] Address: [address] [place] [address] Performed By: #### 3 3762-6, 99908-5 ####[facility] LABORATORYCLIA [id number] [place] [address] [place] Urea nitrogen [Mass/Vol] 28 mg/dL High 9-24 [facility] Comment on above: Order Comment: Speci men Type: BLOOD SPECIMENOrdering Facility: [facility] Address: [address] [place] [address] Performed By: #### 3 3762-6, 66334-4 ####[facility]ORATORYCLIA [id number] [address] CBC panel Auto (Bld)on 07-12 Erythrocyte distribution width (RBC) [Ratio] 17.2 % High 11.5-15.0 [facility] Comment on above: Order Comment: Speci men Type: BLOOD SPECIMENOrdering Facility: [facility] Address: [address] [place] [address] Performed By: #### 5 8410-2 ####[facility] LABORATORYCLIA [id number] [address] Hematocrit (Bld) [Volume fraction] 31.3 % Low 39.0-51.0 [facility] Comment on above: Order Comment: Speci men Type: BLOOD SPECIMENOrdering Facility: [facility] Address: [address] [place] [address] Performed By: #### 5 8410-2 ####[facility]ORATORYCLIA [id number] [address] Hemoglobin (Bld) [Mass/Vol] 9.6 g/dL Low 13.0-17.0 [facility] Comment on above: Order Comment: Speci men Type: BLOOD SPECIMENOrdering Facility: [facility] Address: [address] [place] [address] Performed By: #### 5 8410-2 ####[facility] LABORATORYCLIA [id number] [address] STATES [facility] MCH (RBC) [Entitic mass] 30.3 pg Normal 26.0-34.0 [facility] Comment on above: Order Comment: Speci men Type: BLOOD SPECIMENOrdering Facility: [facility] Address: [address] [place] [address] Performed By: #### 5 8410-2 ####[facility] LABORATORYCLIA [id number] [address] MCHC (RBC) [Mass/Vol] 30.7 g/dL Normal 30.5-36.0 [facility] Comment on above: Order Comment: Speci men Type: BLOOD SPECIMENOrdering Facility: [facility] Address: [address] [place] [address] Performed By: #### 5 8410-2 ####[facility] LABORATORYCLIA [id number] [address] MCV (RBC) [Entitic vol] 98.7 fL Normal 80.0-100.0 [facility] Comment on above: Order Comment: Speci men Type: BLOOD SPECIMENOrdering Facility: [facility] Address: [address] [place] [address] Performed By: #### 5 8410-2 ####[facility] LABORATORYCLIA [id number] [address] Nucleated RBC (Bld) [#/Vol] 10*3/uL Normal <0.01 [facility] Comment on above: Order Comment: Speci men Type: BLOOD SPECIMENOrdering Facility: [facility] Address: [address] [place] [address] Performed By: #### 5 8410-2 ####[facility] LABORATORYCLIA [id number] [address] OF [facility] Platelet mean volume (Bld) [Entitic vol] 9.5 fL Normal 9.0-12.7 [facility] Comment on above: Order Comment: Speci men Type: BLOOD SPECIMENOrdering Facility: [facility] Address: [address] [place] [address] Performed By: #### 5 8410-2 ####[facility]ORATORYCLIA [id number] [address] Platelets (Bld) [#/Vol] 219 10*3/uL Normal 150-400 [facility] Comment on above: Order Comment: Speci men Type: BLOOD SPECIMENOrdering Facility: [facility] Address: [address] [place] [address] Performed By: #### 5 8410-2 ####[facility] LABORATORYCLIA [id number] [address] [place] RBC (Bld) [#/Vol] 3.17 10*6/uL Low 4.20-6.00 [facility] Comment on above: Order Comment: Speci men Type: BLOOD SPECIMENOrdering Facility: [facility] Address: [address] [place] [address] Performed By: #### 5 8410-2 ####[facility] LABORATORYCLIA [id number] [place] [address] [place] WBC (Bld) [#/Vol] 11.40 10*3/uL High 3.70-11.00 [facility] Comment on above: Order Comment: Speci men Type: BLOOD SPECIMENOrdering Facility: [facility] Address: [address] [place] [address] Performed By: #### 5 8410-2 ####[facility]ORATORYCLIA [id number] [address] [place] CONSULT PROGon 07-12-2025 CONSULT PROG Normal [facility] CT BRAIN ATTACK WO IVCONon 0 07-12-2025 CT BRAIN ATTACK WO IVCON Invalid Interpretation Code [facility] CT BRAIN WO IVCONon 07-12-20 CT BRAIN WO IVCON Normal [facility] CTA HEAD W IVCONon 5 CTA HEAD W IVCON Normal [facility] CTA NECK W IVCONon 5 CTA NECK W IVCON Normal [facility] Gas and Carbon monoxide pane l (BldV)on 07-12-2025 Base excess Calc (BldV) [Moles/Vol] 4 mmol/L High 0-2 [facility] Comment on above: Order Comment: Speci men Type: VENOUS BLOOD SPECIMENOrdering Facility: [facility] Address: [address] [place] [address] Performed By: #### 2 4344-4 ####[facility] LABORATORYCLIA [id number] [address] [place] Body temperature 97.88 [degF] Normal [facility] Comment on above: Order Comment: Speci men Type: VENOUS BLOOD SPECIMENOrdering Facility: [facility] Address: [address] [place] [address] Performed By: #### 2 4344-4 ####[facility] LABORATORYCLIA [id number] [address] Calcium.ionized (BldV) [Mass/Vol] 1.19 mmol/L Normal 1.08-1.30 [facility] Comment on above: Order Comment: Speci men Type: VENOUS BLOOD SPECIMENOrdering Facility: [facility] Address: [address] [place] [address] Performed By: #### 2 4344-4 ####[facility]ORATORYCLIA [id number] [address] Calcium.ionized adjusted to pH 7.4 (BldA) [Moles/Vol] 1.18 mmol/L Normal 1.08-1.30 [facility] Comment on above: Order Comment: Speci men Type: VENOUS BLOOD SPECIMENOrdering Facility: [facility] Address: [address] [place] [address] Performed By: #### 2 4344-4 ####[facility] LABORATORYCLIA [id number] [address] OF [facility] Carboxyhemoglobin (BldV) [Mass fraction] 2.9 % High 0.0-2.0 [facility] Comment on above: Order Comment: Speci men Type: VENOUS BLOOD SPECIMENOrdering Facility: [facility] Address: [address] [place] [address] Result Comment: Carb oxyhemoglobin Reference Range for Smokers: 2.0-8.0% Performed By: #### 2 4344-4 ####[facility] LABORATORYCLIA [id number] [address] [place] Chloride [Moles/Vol] 100 mmol/L Normal 97-105 [facility] Comment on above: Order Comment: Speci men Type: VENOUS BLOOD SPECIMENOrdering Facility: [facility] Address: [address] [place] [address] Performed By: #### 2 4344-4 ####[facility] LABORATORYCLIA [id number] [address] [place] CO2 (BldV) [Partial pressure] 50 mm[Hg] Normal 42-55 [facility] Comment on above: Order Comment: Speci men Type: VENOUS BLOOD SPECIMENOrdering Facility: [facility] Address: [address] [place] [address] Performed By: #### 2 4344-4 ####[facility] LABORATORYCLIA [id number] [address] [place] CO2 adjusted to patient's actual temperature (BldV) [Partial pressure] 49 mmHg Normal 42-55 [facility] Comment on above: Order Comment: Speci men Type: VENOUS BLOOD SPECIMENOrdering Facility: [facility] Address: [address] [place] [address] Performed By: #### 2 4344-4 ####[facility] LABORATORYCLIA [id number] [address] [place] Glucose [Mass/Vol] 96 mg/dL Normal 60-105 [facility] Comment on above: Order Comment: Speci men Type: VENOUS BLOOD SPECIMENOrdering Facility: [facility] Address: [address] [place] [address] Performed By: #### 2 4344-4 ####[facility] LABORATORYCLIA [id number] [address] [place] HCO3 (Bld) [Moles/Vol] 30 mmol/L High 24-28 [facility] Comment on above: Order Comment: Speci men Type: VENOUS BLOOD SPECIMENOrdering Facility: [facility] Address: [address] [place] [address] Performed By: #### 2 4344-4 ####[facility] LABORATORYCLIA [id number] [address] [place] Hematocrit (Bld) [Volume fraction] 31.6 % Low 39.0-51.0 [facility] Comment on above: Order Comment: Speci men Type: VENOUS BLOOD SPECIMENOrdering Facility: [facility] Address: [address] [place] [address] Performed By: #### 2 4344-4 ####[facility] LABORATORYCLIA [id number] [address] [place] Hemoglobin (Bld) [Mass/Vol] 10.2 g/dL Low 13.0-17.0 [facility] Comment on above: Order Comment: Speci men Type: VENOUS BLOOD SPECIMENOrdering Facility: [facility] Address: [address] [place] [address] Performed By: #### 2 4344-4 ####[facility]ORATORYCLIA [id number] [address] [place] Lactate [Moles/Vol] 1.4 mmol/L Normal 0.5-2.2 [facility] Comment on above: Order Comment: Speci men Type: VENOUS BLOOD SPECIMENOrdering Facility: [facility] Address: [address] [place] [address] Performed By: #### 2 4344-4 ####[facility] LABORATORYCLIA [id number] [address] [place] Methemoglobin (Bld) [Mass fraction] 0.7 % Normal 0.0-1.5 [facility] Comment on above: Order Comment: Speci men Type: VENOUS BLOOD SPECIMENOrdering Facility: [facility] Address: [address] [place] [address] Performed By: #### 2 4344-4 ####[facility] LABORATORYCLIA [id number] [address] [place] O2 THERAPY RA=Room Air Normal [facility] Comment on above: Order Comment: Speci men Type: VENOUS BLOOD SPECIMENOrdering Facility: [facility] Address: [address] [place] [address] Performed By: #### 2 4344-4 ####[facility]ORATORYCLIA [id number] [address] [place] Oxygen (BldV) [Partial pressure] 42 mm[Hg] Normal 35-45 [facility] Comment on above: Order Comment: Speci men Type: VENOUS BLOOD SPECIMENOrdering Facility: [facility] Address: [address] [place] [address] Performed By: #### 2 4344-4 ####[facility]ORATORYCLIA [id number] [address] [place] Oxygen adjusted to patient's actual temperature (BldV) [Partial pressure] 41 mmHg Normal 35-45 [facility] Comment on above: Order Comment: Speci men Type: VENOUS BLOOD SPECIMENOrdering Facility: [facility] Address: [address] [place] [address] Performed By: #### 2 4344-4 ####[facility]ORATORYCLIA [id number] [address] Oxygen saturation in Venous blood 70 % Normal 60-85 [facility] Comment on above: Order Comment: Speci men Type: VENOUS BLOOD SPECIMENOrdering Facility: [facility] Address: [address] [place] [address] Performed By: #### 2 4344-4 ####[facility]ORATORYCLIA [id number] [address] [place] Oxyhemoglobin (BldV) [Mass fraction] 68 % Normal 60-85 [facility] Comment on above: Order Comment: Speci men Type: VENOUS BLOOD SPECIMENOrdering Facility: [facility] Address: [address] [place] [address] Performed By: #### 2 4344-4 ####[facility]ORATORYCLIA [id number] [address] [place] pH (BldV) 7.39 [pH] Normal 7.32-7.42 [facility] Comment on above: Order Comment: Speci men Type: VENOUS BLOOD SPECIMENOrdering Facility: [facility] Address: [address] [place] [address] Performed By: #### 2 4344-4 ####[facility]ORATORYCLIA [id number] [address] [place] pH adjusted to patient's actual temperature (BldV) 7.39 Normal 7.32-7.42 [facility] Comment on above: Order Comment: Speci men Type: VENOUS BLOOD SPECIMENOrdering Facility: [facility] Address: [address] [place] [address] Performed By: #### 2 4344-4 ####[facility] LABORATORYCLIA [id number] [address] OF [facility] Potassium [Moles/Vol] 4.7 mmol/L Normal 3.5-5.0 [facility] Comment on above: Order Comment: Speci men Type: VENOUS BLOOD SPECIMENOrdering Facility: [facility] Address: [address] [place] [address] Performed By: #### 2 4344-4 ####[facility]ORATORYCLIA [id number] [address] Sodium [Moles/Vol] 132 mmol/L Low 136-144 [facility] Comment on above: Order Comment: Speci men Type: VENOUS BLOOD SPECIMENOrdering Facility: [facility] Address: [address] [place] [address] Performed By: #### 2 4344-4 ####[facility] LABORATORYCLIA [id number] [address] [facility] Natriuretic peptide.B prohormone N-Terminal [Mass/Vol] >79718 High <450 [facility] Comment on above: Order Comment: Speci men Type: BLOOD SPECIMENOrdering Facility: [facility] Address: [address] [place] [address] Performed By: #### 3 3762-6, 65069-5 ####[facility]ORATORYCLIA [id number] [address] [place] NURSING PROGon 07-12-2025 NURSING PROG Normal [facility] PT panel Coag (PPP)on 2024 INR Coag (PPP) [Relative time] 1.9 {INR} High 0.9-1.3 [facility] Comment on above: Order Comment: Speci men Type: BLOOD SPECIMENOrdering Facility: [facility] Address: [place] [address] Result Comment: Zina min K Antagonist (VKA) Therapeutic Range: INR 2 to 3 (Target INR of 2.5)Note: For patients treated with VKA drugs, such as warfarin, the [employer] 2012 Guideline recommends a therapeutic INR range of 2 to 3 (target INR of 2.5). This recommendation includes high-risk patients with antiphospholipid syndrome with previous arterial or venous thromboembolism, current-generation mechanical or bioprosthetic aortic heart valve replacement.Note: Patients with mechanical aortic valve replacement and additional risk factors for thromboembolic events (atrial fibrillation, previous thromboembolism, LV dysfunction, hypercoagulable conditions) or an older generation mechanical AVR (i.e., ball in-Cage) or any mechanical MVR should have a INR therapeutic range of 2.5 to 3.5 (target INR of 3).Karon NAPOLES, et al. Chest 2012, 141:7S-47SChino RA, et al. [facility] 2017, 70: 252-289 Performed By: #### 1 4979-9, 99844-6 ####[facility] CARMELCLIA [id number] [place] [address] [place] PT Coag (PPP) [Time] 19.4 s High 9.7-13.0 [facility] Comment on above: Order Comment: Speci men Type: BLOOD SPECIMENOrdering Facility: [facility] Address: [address] [place] [address] Performed By: #### 1 4979-9, 08523-9 ####[facility] CARMELCLIA [id number] [address] [place] aPTT PPPon 07-12-2025 aPTT Coag (PPP) [Time] 79.6 s High 23.0-32.4 [facility] Comment on above: Order Comment: Speci men Type: BLOOD SPECIMENOrdering Facility: [facility] Address: [address] [place] [address] Performed By: #### 1 4979-9, 16768-5 ####[facility] CARMELCLIA [id number] [place] [address] CBC panel Auto (Bld)on 07-11 Erythrocyte distribution width (RBC) [Ratio] 17.5 % High 11.5-15.0 [facility] Comment on above: Order Comment: Speci men Type: BLOOD SPECIMENOrdering Facility: [facility] Address: [address] [place] [address] Performed By: #### 5 8410-2 ####[facility] LABORATORYCLIA [id number] [address] Hematocrit (Bld) [Volume fraction] 33.7 % Low 39.0-51.0 [facility] Comment on above: Order Comment: Speci men Type: BLOOD SPECIMENOrdering Facility: [facility] Address: [address] [place] [address] Performed By: #### 5 8410-2 ####[facility]ORATORYCLIA [id number] [address] Hemoglobin (Bld) [Mass/Vol] 10.4 g/dL Low 13.0-17.0 [facility] Comment on above: Order Comment: Speci men Type: BLOOD SPECIMENOrdering Facility: [facility] Address: [address] [place] [address] Performed By: #### 5 8410-2 ####[facility]ORATORYCLIA [id number] [address] MCH (RBC) [Entitic mass] 30.7 pg Normal 26.0-34.0 [facility] Comment on above: Order Comment: Speci men Type: BLOOD SPECIMENOrdering Facility: [facility] Address: [address] [place] [address] Performed By: #### 5 8410-2 ####[facility]ORATORYCLIA [id number] [address] MCHC (RBC) [Mass/Vol] 30.9 g/dL Normal 30.5-36.0 [facility] Comment on above: Order Comment: Speci men Type: BLOOD SPECIMENOrdering Facility: [facility] Address: [address] [place] [address] Performed By: #### 5 8410-2 ####[facility]ORATORYCLIA [id number] [address] MCV (RBC) [Entitic vol] 99.4 fL Normal 80.0-100.0 [facility] Comment on above: Order Comment: Speci men Type: BLOOD SPECIMENOrdering Facility: [facility] Address: [address] [place] [address] Performed By: #### 5 8410-2 ####[facility]ORATORYCLIA [id number] [address] Nucleated RBC (Bld) [#/Vol] 10*3/uL Normal <0.01 [facility] Comment on above: Order Comment: Speci men Type: BLOOD SPECIMENOrdering Facility: [facility] Address: [address] [place] [address] Performed By: #### 5 8410-2 ####[facility]ORATORYCLIA [id number] [address] Platelet mean volume (Bld) [Entitic vol] 9.3 fL Normal 9.0-12.7 [facility] Comment on above: Order Comment: Speci men Type: BLOOD SPECIMENOrdering Facility: [facility] Address: [address] [place] [address] Performed By: #### 5 8410-2 ####[facility]ORATORYCLIA [id number] [address] Platelets (Bld) [#/Vol] 242 10*3/uL Normal 150-400 [facility] Comment on above: Order Comment: Speci men Type: BLOOD SPECIMENOrdering Facility: [facility] Address: [address] [place] [address] Performed By: #### 5 8410-2 ####[facility]ORATORYCLIA [id number] [address] [place] RBC (Bld) [#/Vol] 3.39 10*6/uL Low 4.20-6.00 [facility] Comment on above: Order Comment: Zach ortega Type: BLOOD SPECIMENOrdering Facility: [facility] Address: [address] [place] [address] Performed By: #### 5 8410-2 ####[facility]ORATORYCLIA [id number] [place] [address] [place] WBC (Bld) [#/Vol] 11.06 10*3/uL High 3.70-11.00 [facility] Comment on above: Order Comment: Zach ortega Type: BLOOD SPECIMENOrdering Facility: [facility] Address: [address] [place] [address] Performed By: #### 5 8410-2 ####[facility]ORATORYCLIA [id number] [place] [id number] [facility] CONSULT PROGon 07-11-2025 CONSULT PROG Normal [facility] PT panel Coag (PPP)on 2024 INR Coag (PPP) [Relative time] 1.8 {INR} High 0.9-1.3 [facility] Comment on above: Order Comment: Zach ortega Type: BLOOD SPECIMENOrdering Facility: [facility] Address: [address] [place] [address] Result Comment: Zina min K Antagonist (VKA) Therapeutic Range: INR 2 to 3 (Target INR of 2.5)Note: For patients treated with VKA drugs, such as warfarin, the [employer] 2012 Guideline recommends a therapeutic INR range of 2 to 3 (target INR of 2.5). This recommendation includes high-risk patients with antiphospholipid syndrome with previous arterial or venous thromboembolism, current-generation mechanical or bioprosthetic aortic heart valve replacement.Note: Patients with mechanical aortic valve replacement and additional risk factors for thromboembolic events (atrial fibrillation, previous thromboembolism, LV dysfunction, hypercoagulable conditions) or an older generation mechanical AVR (i.e., ball in-Cage) or any mechanical MVR should have a INR therapeutic range of 2.5 to 3.5 (target INR of 3).Karon GH, et al. Chest 2012, 141:7S-47SNishimura RA, et al. [facility] 2017, 70: 252-289 Performed By: #### 3 4528-0, 54797-1 ####[facility] LABORATORYCLIA [id number] [place], [place] [id number] [place] [address] [place] [facility] PT Coag (PPP) [Time] 18.8 s High 9.7-13.0 [facility] Comment on above: Order Comment: Speci men Type: BLOOD SPECIMENOrdering Facility: [facility] Address: [address] [place] [address] Performed By: #### 3 4528-0, 48982-8 ####[facility]ORATORYCLIA [id number] [address] [place] aPTT PPPon 07-11-2025 aPTT Coag (PPP) [Time] 64.5 s High 23.0-32.4 [facility] Comment on above: Order Comment: Speci men Type: BLOOD SPECIMENOrdering Facility: [facility] Address: [address] [place] [address] Performed By: #### 1 4979-9 ####[facility]ORATORYCLIA [id number] [address] aPTT Coag (PPP) [Time] 75.6 s High 23.0-32.4 [facility] Comment on above: Order Comment: Speci men Type: BLOOD SPECIMENOrdering Facility: [facility] Address: [address] [place] [address] Performed By: #### 1 4979-9 ####[facility]ORATORYCLIA [id number] [address] aPTT Coag (PPP) [Time] 87.7 s High 23.0-32.4 [facility] Comment on above: Order Comment: Speci men Type: BLOOD SPECIMENOrdering Facility: [facility] Address: [address] [place] [address] Performed By: #### 3 4528-0, 12432-1 ####[facility]ORATORYCLIA [id number] [address] [place] CASE MANAGEMon 07-10-2025 CASE MANAGEM Normal [facility] CBC panel Auto (Bld)on 07-10 Erythrocyte distribution width (RBC) [Ratio] 17.2 % High 11.5-15.0 [facility] Comment on above: Order Comment: Speci men Type: BLOOD SPECIMENOrdering Facility: [facility] Address: [address] [place] [address] Performed By: #### 5 8410-2 ####[facility]ORATORYCLIA [id number] [address] Hematocrit (Bld) [Volume fraction] 34.1 % Low 39.0-51.0 [facility] Comment on above: Order Comment: Speci men Type: BLOOD SPECIMENOrdering Facility: [facility] Address: [address] [place] [address] Performed By: #### 5 8410-2 ####[facility]ORATORYCLIA [id number] [address] Hemoglobin (Bld) [Mass/Vol] 10.4 g/dL Low 13.0-17.0 [facility] Comment on above: Order Comment: Speci men Type: BLOOD SPECIMENOrdering Facility: [facility] Address: [address] [place] [address] Performed By: #### 5 8410-2 ####[facility]ORATORYCLIA [id number] [address] STATES [facility] MCH (RBC) [Entitic mass] 30.2 pg Normal 26.0-34.0 [facility] Comment on above: Order Comment: Speci men Type: BLOOD SPECIMENOrdering Facility: [facility] Address: [address] [place] [address] Performed By: #### 5 8410-2 ####[facility]ORATORYCLIA [id number] [address] [place] MCHC (RBC) [Mass/Vol] 30.5 g/dL Normal 30.5-36.0 [facility] Comment on above: Order Comment: Speci men Type: BLOOD SPECIMENOrdering Facility: [facility] Address: [address] [place] [address] Performed By: #### 5 8410-2 ####[facility]ORATORYCLIA [id number] [address] [place] MCV (RBC) [Entitic vol] 99.1 fL Normal 80.0-100.0 [facility] Comment on above: Order Comment: Speci men Type: BLOOD SPECIMENOrdering Facility: [facility] Address: [address] [place] [address] Performed By: #### 5 8410-2 ####[facility]ORATORYCLIA [id number] [address] OF [facility] Nucleated RBC (Bld) [#/Vol] 10*3/uL Normal <0.01 [facility] Comment on above: Order Comment: Speci men Type: BLOOD SPECIMENOrdering Facility: [facility] Address: [address] [place] [address] Performed By: #### 5 8410-2 ####[facility]ORATORYCLIA [id number] [address] Platelet mean volume (Bld) [Entitic vol] 9.0 fL Normal 9.0-12.7 [facility] Comment on above: Order Comment: Speci men Type: BLOOD SPECIMENOrdering Facility: [facility] Address: [address] [place] [address] Performed By: #### 5 8410-2 ####[facility]ATORYCLIA [id number] [address] [place] Platelets (Bld) [#/Vol] 245 10*3/uL Normal 150-400 [facility] Comment on above: Order Comment: Speci men Type: BLOOD SPECIMENOrdering Facility: [facility] Address: [address] [place] [address] Performed By: #### 5 8410-2 ####[facility]ORATORYCLIA [id number] [address] [place] RBC (Bld) [#/Vol] 3.44 10*6/uL Low 4.20-6.00 [facility] Comment on above: Order Comment: Zach ortega Type: BLOOD SPECIMENOrdering Facility: [facility] Address: [address] [place] [address] Performed By: #### 5 8410-2 ####[facility]ATORYCLIA [id number] [address] [place] WBC (Bld) [#/Vol] 10.52 10*3/uL Normal 3.70-11.00 [facility] Comment on above: Order Comment: Zach ortega Type: BLOOD SPECIMENOrdering Facility: [facility] Address: [address] [place] [address] Performed By: #### 5 8410-2 ####[facility]ATORYCLIA [id number] [address] CONSULT PROGon 07-10-2025 CONSULT PROG Normal [facility] CONSULT PROG Normal [facility] CONSULT PROG Normal [facility] PT panel Coag (PPP)on 2024 INR Coag (PPP) [Relative time] 1.4 {INR} High 0.9-1.3 [facility] Comment on above: Order Comment: Zach ortega Type: BLOOD SPECIMENOrdering Facility: [facility] Address: [address] [place] [address] Result Comment: Zina min K Antagonist (VKA) Therapeutic Range: INR 2 to 3 (Target INR of 2.5)Note: For patients treated with VKA drugs, such as warfarin, the [employer] [employer] 2012 Guideline recommends a therapeutic INR range of 2 to 3 (target INR of 2.5). This recommendation includes high-risk patients with antiphospholipid syndrome with previous arterial or venous thromboembolism, current-generation mechanical or bioprosthetic aortic heart valve replacement.Note: Patients with mechanical aortic valve replacement and additional risk factors for thromboembolic events (atrial fibrillation, previous thromboembolism, LV dysfunction, hypercoagulable conditions) or an older generation mechanical AVR (i.e., ball in-Cage) or any mechanical MVR should have a INR therapeutic range of 2.5 to 3.5 (target INR of 3).Karon GH, et al. Chest 2012, 141:7S-47SNishimura RA, et al. [facility] 2017, 70: 252-289 Performed By: #### 1 4979-9, 88693-1 ####[facility]ORATORYCLIA [id number] [address] PT Coag (PPP) [Time] 14.6 s High 9.7-13.0 [facility] Comment on above: Order Comment: Speci men Type: BLOOD SPECIMENOrdering Facility: [facility] Address: [address] [place] [address] Performed By: #### 1 4979-9, 18851-4 ####[facility] CARMELCLIA [id number] [address] Vancomycin random [Mass/Vol] on 07-10-2025 Vancomycin [Mass/Vol] 22.1 ug/mL High 10.0-20.0 [facility] Comment on above: Order Comment: Speci jordan Type: BLOOD SPECIMENOrdering Facility: [facility] Address: [address] [place] [address] Result Comment: Refe rence ranges and high/low indicator flags are provided as general guidelines only. The treating physician must determine appropriate target levels/dosing based on the specific clinical situation. Performed By: #### 4 091-5 ####[facility]ORATORYCLIA [id number] [address] aPTT PPPon 07-10-2025 aPTT Coag (PPP) [Time] 65.2 s High 23.0-32.4 [facility] Comment on above: Order Comment: Speci jordan Type: BLOOD SPECIMENOrdering Facility: [facility] Address: [address] [place] [address] Performed By: #### 1 4979-9, 76238-2 ####[facility]ORATORYCLIA [id number] [address] CBC panel Auto (Bld)on 07-09 Erythrocyte distribution width (RBC) [Ratio] 17.2 % High 11.5-15.0 [facility] Comment on above: Order Comment: Speci men Type: BLOOD SPECIMENOrdering Facility: [facility] Address: [address] [place] [address] Performed By: #### 5 8410-2 ####[facility]ORATORYCLIA [id number] [address] Hematocrit (Bld) [Volume fraction] 38.7 % Low 39.0-51.0 [facility] Comment on above: Order Comment: Speci men Type: BLOOD SPECIMENOrdering Facility: [facility] Address: [address] [place] [address] Performed By: #### 5 8410-2 ####[facility]ORATORYCLIA [id number] [address] Hemoglobin (Bld) [Mass/Vol] 11.6 g/dL Low 13.0-17.0 [facility] Comment on above: Order Comment: Speci men Type: BLOOD SPECIMENOrdering Facility: [facility] Address: [address] [place] [address] Performed By: #### 5 8410-2 ####[facility]ORATORYCLIA [id number] [address] [place] MCH (RBC) [Entitic mass] 30.1 pg Normal 26.0-34.0 [facility] Comment on above: Order Comment: Speci men Type: BLOOD SPECIMENOrdering Facility: [facility] Address: [address] [place] [address] Performed By: #### 5 8410-2 ####[facility]ORATORYCLIA [id number] [address] [place] MCHC (RBC) [Mass/Vol] 30.0 g/dL Low 30.5-36.0 [facility] Comment on above: Order Comment: Speci men Type: BLOOD SPECIMENOrdering Facility: [facility] Address: [address] [place] [address] Performed By: #### 5 8410-2 ####[facility]ORATORYCLIA [id number] [address] MCV (RBC) [Entitic vol] 100.5 fL High 80.0-100.0 [facility] Comment on above: Order Comment: Speci men Type: BLOOD SPECIMENOrdering Facility: [facility] Address: [facility] [place] [address] Performed By: #### 5 8410-2 ####[facility]ORATORYCLIA [id number] [address] [place] Nucleated RBC (Bld) [#/Vol] 10*3/uL Normal <0.01 [facility] Comment on above: Order Comment: Speci men Type: BLOOD SPECIMENOrdering Facility: [facility] Address: [address] [place] [address] Performed By: #### 5 8410-2 ####[facility] LABORATORYCLIA [id number] [address] STATES OF [facility] Platelet mean volume (Bld) [Entitic vol] 8.8 fL Low 9.0-12.7 [facility] Comment on above: Order Comment: Speci men Type: BLOOD SPECIMENOrdering Facility: [facility] Address: [address] [place] [address] Performed By: #### 5 8410-2 ####[facility] LABORATORYCLIA [id number] [address] [place] Platelets (Bld) [#/Vol] 259 10*3/uL Normal 150-400 [facility] Comment on above: Order Comment: Speci men Type: BLOOD SPECIMENOrdering Facility: [facility] Address: [facility] [place] [address] Performed By: #### 5 8410-2 ####[facility] LABORATORYCLIA [id number] [address] [place] RBC (Bld) [#/Vol] 3.85 10*6/uL Low 4.20-6.00 [facility] Comment on above: Order Comment: Zach ortega Type: BLOOD SPECIMENOrdering Facility: [facility] Address: [address] [place] [address] Performed By: #### 5 8410-2 ####[facility] LABORATORYCLIA [id number] [place] [id number] [place] WBC (Bld) [#/Vol] 9.89 10*3/uL Normal 3.70-11.00 [facility] Comment on above: Order Comment: Zach jordan Type: BLOOD SPECIMENOrdering Facility: [facility] Address: [address] [place] [address] Performed By: #### 5 8410-2 ####[facility] LABORATORYCLIA [id number] [place] [id number] [facility] [place] CONSULT PROGon 07-09-2025 CONSULT PROG Normal [facility] CONSULT PROG Normal [facility] CONSULT PROG Normal [facility] NURSING PROGon 07-09-2025 NURSING PROG Normal [facility] NUTRITIONon 07-09-2025 NUTRITION Normal [facility] PT panel Coag (PPP)on 2024 INR Coag (PPP) [Relative time] 1.2 {INR} Normal 0.9-1.3 [facility] Comment on above: Order Comment: Zach jordan Type: BLOOD SPECIMENOrdering Facility: [facility] Address: [address] [place] [address] Result Comment: Zina min K Antagonist (VKA) Therapeutic Range: INR 2 to 3 (Target INR of 2.5)Note: For patients treated with VKA drugs, such as warfarin, the [employer] 2012 Guideline recommends a therapeutic INR range of 2 to 3 (target INR of 2.5). This recommendation includes high-risk patients with antiphospholipid syndrome with previous arterial or venous thromboembolism, current-generation mechanical or bioprosthetic aortic heart valve replacement.Note: Patients with mechanical aortic valve replacement and additional risk factors for thromboembolic events (atrial fibrillation, previous thromboembolism, LV dysfunction, hypercoagulable conditions) or an older generation mechanical AVR (i.e., ball in-Cage) or any mechanical MVR should have a INR therapeutic range of 2.5 to 3.5 (target INR of 3).Karon GH, et al. Chest 2012, 141:7S-47SNishimura RA, et al. [facility] 2017, 70: 252-289 Performed By: #### 3 4528-0, 79260-1 ####[facility] LABORATORYCLIA [id number] [place] [id number] [place] OF [facility] PT Coag (PPP) [Time] 13.0 s Normal 9.7-13.0 [facility] Comment on above: Order Comment: Speci men Type: BLOOD SPECIMENOrdering Facility: [facility] Address: [address] [place] [address] Performed By: #### 3 4528-0, 89094-3 ####[facility] LABORATORYCLIA [id number] [address] aPTT PPPon 07-09-2025 aPTT Coag (PPP) [Time] 58.0 s High 23.0-32.4 [facility] Comment on above: Order Comment: Speci men Type: BLOOD SPECIMENOrdering Facility: [facility] Address: [address] [place] [address] Performed By: #### 3 4528-0, 72108-5 ####[facility] LABORATORYCLIA [id number] [address] CASE MANAGEMon 07-08-2025 CASE MANAGEM Normal [facility] CBC panel Auto (Bld)on 07-08 Erythrocyte distribution width (RBC) [Ratio] 17.1 % High 11.5-15.0 [facility] Comment on above: Order Comment: Speci men Type: BLOOD SPECIMENOrdering Facility: [facility] Address: [address] [place] [address] Performed By: #### 5 8410-2 ####[facility] LABORATORYCLIA [id number] [address] OF [facility] Hematocrit (Bld) [Volume fraction] 33.8 % Low 39.0-51.0 [facility] Comment on above: Order Comment: Speci men Type: BLOOD SPECIMENOrdering Facility: [facility] Address: [address] [place] [address] Performed By: #### 5 8410-2 ####[facility] LABORATORYCLIA [id number] [address] STATES OF [facility] Hemoglobin (Bld) [Mass/Vol] 10.0 g/dL Low 13.0-17.0 [facility] Comment on above: Order Comment: Speci men Type: BLOOD SPECIMENOrdering Facility: [facility] Address: [address] [place] [address] Performed By: #### 5 8410-2 ####[facility] LABORATORYCLIA [id number] [address] [place] MCH (RBC) [Entitic mass] 29.6 pg Normal 26.0-34.0 [facility] Comment on above: Order Comment: Speci men Type: BLOOD SPECIMENOrdering Facility: [facility] Address: [address] [place] [address] Performed By: #### 5 8410-2 ####[facility] LABORATORYCLIA [id number] [address] [place] MCHC (RBC) [Mass/Vol] 29.6 g/dL Low 30.5-36.0 [facility] Comment on above: Order Comment: Speci men Type: BLOOD SPECIMENOrdering Facility: [facility] Address: [address] [place] [address] Performed By: #### 5 8410-2 ####[facility] LABORATORYCLIA [id number] [address] [place] MCV (RBC) [Entitic vol] 100.0 fL Normal 80.0-100.0 [facility] Comment on above: Order Comment: Speci men Type: BLOOD SPECIMENOrdering Facility: [facility] Address: [address] [place] [address] Performed By: #### 5 8410-2 ####[facility] LABORATORYCLIA [id number] [address] [place] Nucleated RBC (Bld) [#/Vol] 10*3/uL Normal <0.01 [facility] Comment on above: Order Comment: Speci men Type: BLOOD SPECIMENOrdering Facility: [facility] Address: [address] [place] [address] Performed By: #### 5 8410-2 ####[facility] LABORATORYCLIA [id number] [place] [address] [place] Platelet mean volume (Bld) [Entitic vol] 9.6 fL Normal 9.0-12.7 [facility] Comment on above: Order Comment: Speci men Type: BLOOD SPECIMENOrdering Facility: [facility] Address: [address] [place] [address] Performed By: #### 5 8410-2 ####[facility] LABORATORYCLIA [id number] [address] [place] Platelets (Bld) [#/Vol] 248 10*3/uL Normal 150-400 [facility] Comment on above: Order Comment: Speci men Type: BLOOD SPECIMENOrdering Facility: [facility] Address: [address] [place] [address] Performed By: #### 5 8410-2 ####[facility] LABORATORYCLIA [id number] [place] [address] [place] RBC (Bld) [#/Vol] 3.38 10*6/uL Low 4.20-6.00 [facility] Comment on above: Order Comment: Speci men Type: BLOOD SPECIMENOrdering Facility: [facility] Address: [address] [place] [address] Performed By: #### 5 8410-2 ####[facility] LABORATORYCLIA [id number] [address] [place] WBC (Bld) [#/Vol] 8.67 10*3/uL Normal 3.70-11.00 [facility] Comment on above: Order Comment: Speci men Type: BLOOD SPECIMENOrdering Facility: [facility] Address: [address] [place] [address] Performed By: #### 5 8410-2 ####[facility] LABORATORYCLIA [id number] [address] [place] CONSULT PROGon 07-08-2025 CONSULT PROG Normal [facility] PT panel Coag (PPP)on 2024 INR Coag (PPP) [Relative time] 1.3 {INR} Normal 0.9-1.3 [facility] Comment on above: Order Comment: Speci men Type: BLOOD SPECIMENOrdering Facility: [facility] Address: [address] [place] [address] Result Comment: Zina min K Antagonist (VKA) Therapeutic Range: INR 2 to 3 (Target INR of 2.5)Note: For patients treated with VKA drugs, such as warfarin, the [employer] 2012 Guideline recommends a therapeutic INR range of 2 to 3 (target INR of 2.5). This recommendation includes high-risk patients with antiphospholipid syndrome with previous arterial or venous thromboembolism, current-generation mechanical or bioprosthetic aortic heart valve replacement.Note: Patients with mechanical aortic valve replacement and additional risk factors for thromboembolic events (atrial fibrillation, previous thromboembolism, LV dysfunction, hypercoagulable conditions) or an older generation mechanical AVR (i.e., ball in-Cage) or any mechanical MVR should have a INR therapeutic range of 2.5 to 3.5 (target INR of 3).Karon GH, et al. Chest 2012, 141:7S-47SNishimmel RA, et al. [facility] 2017, 70: 252-289 Performed By: #### 3 4528-0, 28245-0 ####[facility] LABORATORYCLIA [id number] [address] [place] PT Coag (PPP) [Time] 13.5 s High 9.7-13.0 [facility] Comment on above: Order Comment: Speci men Type: BLOOD SPECIMENOrdering Facility: [facility] Address: [address] [place] [address] Performed By: #### 3 4528-0, 72459-8 ####[facility] LABORATORYCLIA [id number] [address] [place] aPTT PPPon 07-08-2025 aPTT Coag (PPP) [Time] 77.9 s High 23.0-32.4 [facility] Comment on above: Order Comment: Speci men Type: BLOOD SPECIMENOrdering Facility: [facility] Address: [address] [place] [address] Performed By: #### 3 4528-0, 94905-7 ####[facility] LABORATORYCLIA [id number] [address] OF [facility] CASE MANAGEMon 07-07-2025 CASE MANAGEM Normal [facility] CBC panel Auto (Bld)on 07-07 Erythrocyte distribution width (RBC) [Ratio] 17.2 % High 11.5-15.0 [facility] Comment on above: Order Comment: Speci men Type: BLOOD SPECIMENOrdering Facility: [facility] Address: [address] [place] [address] Performed By: #### 5 8410-2 ####[facility] LABORATORYCLIA [id number] [address] STATES [facility] Hematocrit (Bld) [Volume fraction] 32.7 % Low 39.0-51.0 [facility] Comment on above: Order Comment: Speci men Type: BLOOD SPECIMENOrdering Facility: [facility] Address: [address] [place] [address] Performed By: #### 5 8410-2 ####[facility]ORATORYCLIA [id number] [address] [place] Hemoglobin (Bld) [Mass/Vol] 9.9 g/dL Low 13.0-17.0 [facility] Comment on above: Order Comment: Speci men Type: BLOOD SPECIMENOrdering Facility: [facility] Address: [address] [place] [address] Performed By: #### 5 8410-2 ####[facility] LABORATORYCLIA [id number] [address] [place] MCH (RBC) [Entitic mass] 29.9 pg Normal 26.0-34.0 [facility] Comment on above: Order Comment: Speci men Type: BLOOD SPECIMENOrdering Facility: [facility] Address: [address] [place] [address] Performed By: #### 5 8410-2 ####[facility] LABORATORYCLIA [id number] [address] [place] MCHC (RBC) [Mass/Vol] 30.3 g/dL Low 30.5-36.0 [facility] Comment on above: Order Comment: Speci men Type: BLOOD SPECIMENOrdering Facility: [facility] Address: [address] [place] [address] Performed By: #### 5 8410-2 ####[facility] LABORATORYCLIA [id number] [address] [place] MCV (RBC) [Entitic vol] 98.8 fL Normal 80.0-100.0 [facility] Comment on above: Order Comment: Speci men Type: BLOOD SPECIMENOrdering Facility: [facility] Address: [address] [place] [address] Performed By: #### 5 8410-2 ####[facility] LABORATORYCLIA [id number] [address] Nucleated RBC (Bld) [#/Vol] 10*3/uL Normal <0.01 [facility] Comment on above: Order Comment: Speci men Type: BLOOD SPECIMENOrdering Facility: [facility] Address: [address] [place] [address] Performed By: #### 5 8410-2 ####[facility] LABORATORYCLIA [id number] [address] Platelet mean volume (Bld) [Entitic vol] 9.8 fL Normal 9.0-12.7 [facility] Comment on above: Order Comment: Speci men Type: BLOOD SPECIMENOrdering Facility: [facility] Address: [address] [place] [address] Performed By: #### 5 8410-2 ####[facility] LABORATORYCLIA [id number] [address] [place] Platelets (Bld) [#/Vol] 295 10*3/uL Normal 150-400 [facility] Comment on above: Order Comment: Speci men Type: BLOOD SPECIMENOrdering Facility: [facility] Address: [address] [place] [address] Performed By: #### 5 8410-2 ####[facility] LABORATORYCLIA [id number] [place] [address] [place] RBC (Bld) [#/Vol] 3.31 10*6/uL Low 4.20-6.00 [facility] Comment on above: Order Comment: Speci men Type: BLOOD SPECIMENOrdering Facility: [facility] Address: [address] [place] [address] Performed By: #### 5 8410-2 ####[facility]ORATORYCLIA [id number] [address] OF [facility] WBC (Bld) [#/Vol] 8.86 10*3/uL Normal 3.70-11.00 [facility] Comment on above: Order Comment: Speci men Type: BLOOD SPECIMENOrdering Facility: [facility] Address: [address] [place] [address] Performed By: #### 5 8410-2 ####[facility]ORATORYCLIA [id number] [address] [place] CONSULT PROGon 07-07-2025 CONSULT PROG Normal [facility] CONSULT PROG Normal [facility] CRP SerPl-mCncon 07-07-2025 CRP [Mass/Vol] 5.0 mg/dL High <0.9 [facility] Comment on above: Order Comment: Speci men Type: BLOOD SPECIMENOrdering Facility: [facility] Address: [address] [place] [address] Performed By: #### 1 988-5, 3024-7, TSHRF ####[facility] LABORATORYCLIA [id number] [place] [address] [place] ECG COMPLETEon 07-07-2025 ECG COMPLETE Normal [facility] NURSING PROGon 07-07-2025 NURSING PROG Normal [facility] PT panel Coag (PPP)on 2024 INR Coag (PPP) [Relative time] 1.4 {INR} High 0.9-1.3 [facility] Comment on above: Order Comment: Zach ortega Type: BLOOD SPECIMENOrdering Facility: [facility] Address: [address] [place] [address] Result Comment: Zina min K Antagonist (VKA) Therapeutic Range: INR 2 to 3 (Target INR of 2.5)Note: For patients treated with VKA drugs, such as warfarin, the [employer] [employer] 2012 Guideline recommends a therapeutic INR range of 2 to 3 (target INR of 2.5). This recommendation includes high-risk patients with antiphospholipid syndrome with previous arterial or venous thromboembolism, current-generation mechanical or bioprosthetic aortic heart valve replacement.Note: Patients with mechanical aortic valve replacement and additional risk factors for thromboembolic events (atrial fibrillation, previous thromboembolism, LV dysfunction, hypercoagulable conditions) or an older generation mechanical AVR (i.e., ball in-Cage) or any mechanical MVR should have a INR therapeutic range of 2.5 to 3.5 (target INR of 3).Karon NAPOLES, et al. Chest 2012, 141:7S-47SChino RA, et al. [facility] 2017, 70: 252-289 Performed By: #### 3 4528-0, 27997-0 ####[facility] LABORATORYCLIA [id number] [place] [id number] [place] PT Coag (PPP) [Time] 14.6 s High 9.7-13.0 [facility] Comment on above: Order Comment: Zach ortega Type: BLOOD SPECIMENOrdering Facility: [facility] Address: [address] [place] [address] Performed By: #### 3 4528-0, 85128-1 ####[facility] LABORATORYCLIA [id number] [place] [address] [place] T4 Free SerPl-mCncon 025 Free T4 [Mass/Vol] 1.6 ng/dL Normal 0.9-1.7 [facility] Comment on above: Order Comment: Speci men Type: BLOOD SPECIMENOrdering Facility: [facility] Address: [address] [place] [address] Performed By: #### 1 988-5, 3024-7, TSHRF ####[facility]ORATORYCLIA [id number] [address] TSH W/REFLEX FT4on TSH Qn 10.600 m[IU]/L High 0.270-4.200 [facility] Comment on above: Order Comment: Speci men Type: BLOOD SPECIMENOrdering Facility: [facility] Address: [address] [place] [address] Performed By: #### 1 988-5, 3024-7, TSHRF ####[facility]ELCLIA [id number] [address] aPTT PPPon 07-07-2025 aPTT Coag (PPP) [Time] 55.4 s High 23.0-32.4 [facility] Comment on above: Order Comment: Speci men Type: BLOOD SPECIMENOrdering Facility: [facility] Address: [address] [place] [address] Performed By: #### 1 4979-9 ####[facility] LABORATORYCLIA [id number] [address] STATES OF [facility] aPTT Coag (PPP) [Time] 75.1 s High 23.0-32.4 [facility] Comment on above: Order Comment: Speci men Type: BLOOD SPECIMENOrdering Facility: [facility] Address: [address] [place] [address] Performed By: #### 1 4979-9 ####[facility]ORATORYCLIA [id number] [address] aPTT Coag (PPP) [Time] 48.7 s High 23.0-32.4 [facility] Comment on above: Order Comment: Speci men Type: BLOOD SPECIMENOrdering Facility: [facility] Address: [address] [place] [address] Performed By: #### 3 4528-0, 59605-3 ####[facility]ORATORYCLIA [id number] [address] [place] CASE MANAGEMon 07-06-2025 CASE MANAGEM Normal [facility] CBC panel Auto (Bld)on 07-06 Erythrocyte distribution width (RBC) [Ratio] 17.2 % High 11.5-15.0 [facility] Comment on above: Order Comment: Speci men Type: BLOOD SPECIMENOrdering Facility: [facility] Address: [address] [place] [address] Performed By: #### 5 8410-2 ####[facility]ORATORYCLIA [id number] [address] [place] Hematocrit (Bld) [Volume fraction] 32.3 % Low 39.0-51.0 [facility] Comment on above: Order Comment: Speci men Type: BLOOD SPECIMENOrdering Facility: [facility] Address: [address] [place] [address] Performed By: #### 5 8410-2 ####[facility]ORATORYCLIA [id number] [address] [place] Hemoglobin (Bld) [Mass/Vol] 10.0 g/dL Low 13.0-17.0 [facility] Comment on above: Order Comment: Speci men Type: BLOOD SPECIMENOrdering Facility: [facility] Address: [address] [place] [address] Performed By: #### 5 8410-2 ####[facility] LABORATORYCLIA [id number] [address] [place] MCH (RBC) [Entitic mass] 31.4 pg Normal 26.0-34.0 [facility] Comment on above: Order Comment: Speci men Type: BLOOD SPECIMENOrdering Facility: [facility] Address: [address] [place] [address] Performed By: #### 5 8410-2 ####[facility] LABORATORYCLIA [id number] [address] MCHC (RBC) [Mass/Vol] 31.0 g/dL Normal 30.5-36.0 [facility] Comment on above: Order Comment: Speci men Type: BLOOD SPECIMENOrdering Facility: [facility] Address: [facility] [place] [address] Performed By: #### 5 8410-2 ####[facility] LABORATORYCLIA [id number] [address] [place] MCV (RBC) [Entitic vol] 101.6 fL High 80.0-100.0 [facility] Comment on above: Order Comment: Speci men Type: BLOOD SPECIMENOrdering Facility: [facility] Address: [address] [place] [address] Performed By: #### 5 8410-2 ####[facility] LABORATORYCLIA [id number] [address] OF [facility] Nucleated RBC (Bld) [#/Vol] 10*3/uL Normal <0.01 [facility] Comment on above: Order Comment: Speci men Type: BLOOD SPECIMENOrdering Facility: [facility] Address: [address] [place] [address] Performed By: #### 5 8410-2 ####[facility] LABORATORYCLIA [id number] [address] STATES OF [facility] Platelet mean volume (Bld) [Entitic vol] 10.2 fL Normal 9.0-12.7 [facility] Comment on above: Order Comment: Speci men Type: BLOOD SPECIMENOrdering Facility: [facility] Address: [address] [place] [address] Performed By: #### 5 8410-2 ####[facility] LABORATORYCLIA [id number] [address] [place] Platelets (Bld) [#/Vol] 232 10*3/uL Normal 150-400 [facility] Comment on above: Order Comment: Speci men Type: BLOOD SPECIMENOrdering Facility: [facility] Address: [address] [place] [address] Performed By: #### 5 8410-2 ####[facility] LABORATORYCLIA [id number] [place] [address] [place] RBC (Bld) [#/Vol] 3.18 10*6/uL Low 4.20-6.00 [facility] Comment on above: Order Comment: Speci men Type: BLOOD SPECIMENOrdering Facility: [facility] Address: [address] [place] [address] Performed By: #### 5 8410-2 ####[facility] LABORATORYCLIA [id number] [address] STATES OF [facility] WBC (Bld) [#/Vol] 8.58 10*3/uL Normal 3.70-11.00 [facility] Comment on above: Order Comment: Speci men Type: BLOOD SPECIMENOrdering Facility: [facility] Address: [address] [place] [address] Performed By: #### 5 8410-2 ####[facility] LABORATORYCLIA [id number] [address] CONSULT PROGon 07-06-2025 CONSULT PROG Normal [facility] CONSULT PROG Normal [facility] CONSULT PROG Normal [facility] NURSING PROGon 07-06-2025 NURSING PROG Normal [facility] NURSING PROG Normal [facility] PT panel Coag (PPP)on 2024 INR Coag (PPP) [Relative time] 1.5 {INR} High 0.9-1.3 [facility] Comment on above: Order Comment: Speci men Type: BLOOD SPECIMENOrdering Facility: [facility] Address: [address] [place] [address] Result Comment: Zina min K Antagonist (VKA) Therapeutic Range: INR 2 to 3 (Target INR of 2.5)Note: For patients treated with VKA drugs, such as warfarin, the [employer] 2012 Guideline recommends a therapeutic INR range of 2 to 3 (target INR of 2.5). This recommendation includes high-risk patients with antiphospholipid syndrome with previous arterial or venous thromboembolism, current-generation mechanical or bioprosthetic aortic heart valve replacement.Note: Patients with mechanical aortic valve replacement and additional risk factors for thromboembolic events (atrial fibrillation, previous thromboembolism, LV dysfunction, hypercoagulable conditions) or an older generation mechanical AVR (i.e., ball in-Cage) or any mechanical MVR should have a INR therapeutic range of 2.5 to 3.5 (target INR of 3).Karon NAPOLES, et al. Chest 2012, 141:7S-47SNishdawood RA, et al. [facility] 2017, 70: 252-289 Performed By: #### 1 4979-9, 98590-6 ####[facility] LABORATORYCLIA [id number] [address] [place] PT Coag (PPP) [Time] 16.3 s High 9.7-13.0 [facility] Comment on above: Order Comment: Speci men Type: BLOOD SPECIMENOrdering Facility: [facility] Address: [address] [place] [address] Performed By: #### 1 4979-9, 67145-7 ####[facility] LABORATORYCLIA [id number] [address] [place] THERAPY NTon 07-06-2025 THERAPY NT Normal [facility] aPTT PPPon 07-06-2025 aPTT Coag (PPP) [Time] 73.0 s High 23.0-32.4 [facility] Comment on above: Order Comment: Speci men Type: BLOOD SPECIMENOrdering Facility: [facility] Address: [address] [place] [address] Performed By: #### 1 4979-9 ####[facility] LABORATORYCLIA [id number] [address] aPTT Coag (PPP) [Time] 67.3 s High 23.0-32.4 [facility] Comment on above: Order Comment: Speci men Type: BLOOD SPECIMENOrdering Facility: [facility] Address: [address] [place] [address] Performed By: #### 1 4979-9 ####[facility] LABORATORYCLIA [id number] [address] aPTT Coag (PPP) [Time] 99.1 s High 23.0-32.4 [facility] Comment on above: Order Comment: Speci men Type: BLOOD SPECIMENOrdering Facility: [facility] Address: [address] [place] [address] Performed By: #### 1 4979-9, 01557-9 ####[facility] LABORATORYCLIA [id number] [address] aPTT Coag (PPP) [Time] 100.9 s High 23.0-32.4 [facility] Comment on above: Order Comment: Speci men Type: BLOOD SPECIMENOrdering Facility: [facility] Address: [address] [place] [address] Performed By: #### 1 4979-9 ####[facility] LABORATORYCLIA [id number] [address] CBC panel Auto (Bld)on 07-05 Erythrocyte distribution width (RBC) [Ratio] 17.3 % High 11.5-15.0 [facility] Comment on above: Order Comment: Speci men Type: BLOOD SPECIMENOrdering Facility: [facility] Address: [address] [place] [address] Performed By: #### 5 8410-2 ####[facility] LABORATORYCLIA [id number] [address] Hematocrit (Bld) [Volume fraction] 34.6 % Low 39.0-51.0 [facility] Comment on above: Order Comment: Speci men Type: BLOOD SPECIMENOrdering Facility: [facility] Address: [address] [place] [address] Performed By: #### 5 8410-2 ####[facility] LABORATORYCLIA [id number] [address] Hemoglobin (Bld) [Mass/Vol] 10.6 g/dL Low 13.0-17.0 [facility] Comment on above: Order Comment: Speci men Type: BLOOD SPECIMENOrdering Facility: [facility] Address: [address] [place] [address] Performed By: #### 5 8410-2 ####[facility] LABORATORYCLIA [id number] [address] MCH (RBC) [Entitic mass] 30.0 pg Normal 26.0-34.0 [facility] Comment on above: Order Comment: Speci men Type: BLOOD SPECIMENOrdering Facility: [facility] Address: [address] [place] [address] Performed By: #### 5 8410-2 ####[facility] LABORATORYCLIA [id number] [address] MCHC (RBC) [Mass/Vol] 30.6 g/dL Normal 30.5-36.0 [facility] Comment on above: Order Comment: Speci men Type: BLOOD SPECIMENOrdering Facility: [facility] Address: [address] [place] [address] Performed By: #### 5 8410-2 ####[facility] LABORATORYCLIA [id number] [address] MCV (RBC) [Entitic vol] 98.0 fL Normal 80.0-100.0 [facility] Comment on above: Order Comment: Speci men Type: BLOOD SPECIMENOrdering Facility: [facility] Address: [address] [place] [address] Performed By: #### 5 8410-2 ####[facility] LABORATORYCLIA [id number] [address] Nucleated RBC (Bld) [#/Vol] 10*3/uL Normal <0.01 [facility] Comment on above: Order Comment: Speci men Type: BLOOD SPECIMENOrdering Facility: [facility] Address: [address] [place], [place] [address] Performed By: #### 5 8410-2 ####[facility] LABORATORYCLIA [id number] [address] [place] Platelet mean volume (Bld) [Entitic vol] 9.5 fL Normal 9.0-12.7 [facility] Comment on above: Order Comment: Speci men Type: BLOOD SPECIMENOrdering Facility: [facility] Address: [address] [place] [address] Performed By: #### 5 8410-2 ####[facility] LABORATORYCLIA [id number] [place] [address] [place] Platelets (Bld) [#/Vol] 250 10*3/uL Normal 150-400 [facility] Comment on above: Order Comment: Speci men Type: BLOOD SPECIMENOrdering Facility: [facility] Address: [address] [place] [address] Performed By: #### 5 8410-2 ####[facility] LABORATORYCLIA [id number] [place] [address] [place] RBC (Bld) [#/Vol] 3.53 10*6/uL Low 4.20-6.00 [facility] Comment on above: Order Comment: Speci men Type: BLOOD SPECIMENOrdering Facility: [facility] Address: [address] [place] [address] Performed By: #### 5 8410-2 ####[facility] LABORATORYCLIA [id number] [place] [address] [place] WBC (Bld) [#/Vol] 9.85 10*3/uL Normal 3.70-11.00 [facility] Comment on above: Order Comment: Speci men Type: BLOOD SPECIMENOrdering Facility: [facility] Address: [address] [place] [address] Performed By: #### 5 8410-2 ####[facility] LABORATORYCLIA [id number] [address] [place] CONSULT PROGon 07-05-2025 CONSULT PROG Normal [facility] PT panel Coag (PPP)on 2024 INR Coag (PPP) [Relative time] 1.6 {INR} High 0.9-1.3 [facility] Comment on above: Order Comment: Zach ortega Type: BLOOD SPECIMENOrdering Facility: [facility] Address: [address] [place] [address] Result Comment: Zina min K Antagonist (VKA) Therapeutic Range: INR 2 to 3 (Target INR of 2.5)Note: For patients treated with VKA drugs, such as warfarin, the [place] [employer] 2012 Guideline recommends a therapeutic INR range of 2 to 3 (target INR of 2.5). This recommendation includes high-risk patients with antiphospholipid syndrome with previous arterial or venous thromboembolism, current-generation mechanical or bioprosthetic aortic heart valve replacement.Note: Patients with mechanical aortic valve replacement and additional risk factors for thromboembolic events (atrial fibrillation, previous thromboembolism, LV dysfunction, hypercoagulable conditions) or an older generation mechanical AVR (i.e., ball in-Cage) or any mechanical MVR should have a INR therapeutic range of 2.5 to 3.5 (target INR of 3).Karon GH, et al. Chest 2012, 141:7S-47SNishimura RA, et al. [facility] 2017, 70: 252-289 Performed By: #### 3 4528-0, 31314-4 ####[facility] LABORATORYCLIA [id number] [place] [address] [place] PT Coag (PPP) [Time] 17.1 s High 9.7-13.0 [facility] Comment on above: Order Comment: Zach ortega Type: BLOOD SPECIMENOrdering Facility: [facility] Address: [address] [place] [address] Performed By: #### 3 4528-0, 25952-2 ####[facility] LABORATORYCLIA [id number] [address] [place] INR Coag (PPP) [Relative time] 1.7 {INR} High 0.9-1.3 [facility] Comment on above: Order Comment: Zach ortega Type: BLOOD SPECIMENOrdering Facility: [facility] Address: [address] [place] [address] Result Comment: Zina min K Antagonist (VKA) Therapeutic Range: INR 2 to 3 (Target INR of 2.5)Note: For patients treated with VKA drugs, such as warfarin, the [place] [employer] 2012 Guideline recommends a therapeutic INR range of 2 to 3 (target INR of 2.5). This recommendation includes high-risk patients with antiphospholipid syndrome with previous arterial or venous thromboembolism, current-generation mechanical or bioprosthetic aortic heart valve replacement.Note: Patients with mechanical aortic valve replacement and additional risk factors for thromboembolic events (atrial fibrillation, previous thromboembolism, LV dysfunction, hypercoagulable conditions) or an older generation mechanical AVR (i.e., ball in-Cage) or any mechanical MVR should have a INR therapeutic range of 2.5 to 3.5 (target INR of 3).Karon NAPOLES, et al. Chest 2012, 141:7S-47SNishdawood RA, et al. [facility] 2017, 70: 252-289 Performed By: #### 3 4528-0 ####[facility] LABORATORYCLIA [id number] [place] [address] [place] PT Coag (PPP) [Time] 17.3 s High 9.7-13.0 [facility] Comment on above: Order Comment: Speci men Type: BLOOD SPECIMENOrdering Facility: [facility] Address: [address] [place] [address] Performed By: #### 3 4528-0 ####[facility] LABORATORYCLIA [id number] [address] [place] THERAPY NTon 07-05-2025 THERAPY NT Normal [facility] THERAPY NT Normal [facility] aPTT PPPon 07-05-2025 aPTT Coag (PPP) [Time] 110.5 s High 23.0-32.4 [facility] Comment on above: Order Comment: Speci men Type: BLOOD SPECIMENOrdering Facility: [facility] Address: [address] [place] [address] Performed By: #### 1 4979-9 ####[facility]ORATORYCLIA [id number] [place] [id number] [place] aPTT Coag (PPP) [Time] 37.3 s High 23.0-32.4 [facility] Comment on above: Order Comment: Speci men Type: BLOOD SPECIMENOrdering Facility: [facility] Address: [address] [place] [address] Performed By: #### 3 4528-0, 55207-6 ####[facility] LABORATORYCLIA [id number] [place] [address] [place] Basic metabolic 2000 panelon 07-04-2025 Anion gap [Moles/Vol] 11 mmol/L Normal 8-15 [facility] Comment on above: Order Comment: Speci men Type: BLOOD SPECIMENOrdering Facility: [facility] Address: [address] [place] [address] Performed By: #### 2 4321-2 ####[facility] LABORATORYCLIA [id number] [place] [address] [place] Calcium [Mass/Vol] 9.0 mg/dL Normal 8.5-10.2 [facility] Comment on above: Order Comment: Speci men Type: BLOOD SPECIMENOrdering Facility: [facility] Address: [address] [place] [address] Performed By: #### 2 4321-2 ####[facility] LABORATORYCLIA [id number] [place] [address] [place] Chloride [Moles/Vol] 96 mmol/L Low 98-107 [facility] Comment on above: Order Comment: Speci men Type: BLOOD SPECIMENOrdering Facility: [facility] Address: [address] [place] [address] Performed By: #### 2 4321-2 ####[facility] LABORATORYCLIA [id number] [place] [address] [place] CO2 [Moles/Vol] 27 mmol/L Normal 22-30 [facility] Comment on above: Order Comment: Speci men Type: BLOOD SPECIMENOrdering Facility: [facility] Address: [address] [place] [address] Performed By: #### 2 4321-2 ####[facility] LABORATORYCLIA [id number] [place] [id number] [place] Creatinine [Mass/Vol] 3.11 mg/dL High 0.73-1.22 [facility] Comment on above: Order Comment: Speci men Type: BLOOD SPECIMENOrdering Facility: [facility] Address: [address] [place] [address] Performed By: #### 2 4321-2 ####[facility] CARMELCLIA [id number] [address] [place] eGFRcr SerPlBld CKD-EPI 2020 20 mL/min/1.73m??? Low >=60 [facility] Comment on above: Order Comment: Zach ortega Type: BLOOD SPECIMENOrdering Facility: [facility] Address: [address] [place] [address] Result Comment: Faviola mated Glomerular Filtration Rate (eGFR) is calculated using the 2020 CKD-EPI creatinine equation. This equation utilizes serum creatinine, sex, and age as parameters. The creatinine assay has traceable calibration to isotope dilution-mass spectrometry. Refer to KDIGO guidelines for clinical interpretation. In patients with unstable renal function, e.g. those with acute kidney injury, the eGFR may not accurately reflect actual GFR. Performed By: #### 2 4321-2 ####[facility] LABORATORYCLIA [id number] [place] [id number] [place] Glucose [Mass/Vol] 97 mg/dL Normal 74-99 [facility] Comment on above: Order Comment: Speci jordan Type: BLOOD SPECIMENOrdering Facility: [facility] Address: [address] [place] [address] Result Comment: The [place] [employer] (ADA) provides guidance for cutoff values for fasting glucose and random glucose. The ADA defines fasting as no caloric intake for at least 8 hours. Fasting plasma glucose results between 100 to 125 mg/dL indicate increased risk for diabetes (prediabetes).Fasting plasma glucose results greater than or equal to 126 mg/dL meet the criteria for diagnosis of diabetes. In the absence of unequivocal hyperglycemia, results should be confirmed by repeat testing. In a patient with classic symptoms of hyperglycemia or hyperglycemic crisis, random plasma glucose results greater than or equal to 200 mg/dL meet the criteria for diagnosis of diabetes.Reference: Standards of Medical Care in Diabetes 2016, [place] [employer]. Diabetes Care. 2016.39(Suppl 1). Performed By: #### 2 4321-2 ####[facility] LABORATORYCLIA [id number] [address] STATES OF [facility] Potassium [Moles/Vol] 3.8 mmol/L Normal 3.7-5.1 [facility] Comment on above: Order Comment: Speci men Type: BLOOD SPECIMENOrdering Facility: [facility] Address: [address] [place] [address] Performed By: #### 2 4321-2 ####[facility]ORATORYCLIA [id number] [address] Sodium [Moles/Vol] 134 mmol/L Low 136-144 [facility] Comment on above: Order Comment: Speci men Type: BLOOD SPECIMENOrdering Facility: [facility] Address: [address] [place] [address] Performed By: #### 2 4321-2 ####[facility]ORATORYCLIA [id number] [address] Urea nitrogen [Mass/Vol] 12 mg/dL Normal 9-24 [facility] Comment on above: Order Comment: Camdeni jordan Type: BLOOD SPECIMENOrdering Facility: [facility] Address: [address] [place] [address] Performed By: #### 2 4321-2 ####[facility] LABORATORYCLIA [id number] [address] [place] CBC panel Auto (Bld)on 07-04 Erythrocyte distribution width (RBC) [Ratio] 17.4 % High 11.5-15.0 [facility] Comment on above: Order Comment: Camdeni men Type: BLOOD SPECIMENOrdering Facility: [facility] Address: [address] [place] [address] Performed By: #### 5 8410-2 ####[facility]ORATORYCLIA [id number] [address] Hematocrit (Bld) [Volume fraction] 35.5 % Low 39.0-51.0 [facility] Comment on above: Order Comment: Speci men Type: BLOOD SPECIMENOrdering Facility: [facility] Address: [address] [place] [address] Performed By: #### 5 8410-2 ####[facility] LABORATORYCLIA [id number] [address] OF [facility] Hemoglobin (Bld) [Mass/Vol] 10.5 g/dL Low 13.0-17.0 [facility] Comment on above: Order Comment: Speci men Type: BLOOD SPECIMENOrdering Facility: [facility] Address: [address] [place] [address] Performed By: #### 5 8410-2 ####[facility] LABORATORYCLIA [id number] [address] MCH (RBC) [Entitic mass] 30.0 pg Normal 26.0-34.0 [facility] Comment on above: Order Comment: Speci men Type: BLOOD SPECIMENOrdering Facility: [facility] Address: [address] [place] [address] Performed By: #### 5 8410-2 ####[facility] LABORATORYCLIA [id number] [address] [place] MCHC (RBC) [Mass/Vol] 29.6 g/dL Low 30.5-36.0 [facility] Comment on above: Order Comment: Speci men Type: BLOOD SPECIMENOrdering Facility: [facility] Address: [address] [place] [address] Performed By: #### 5 8410-2 ####[facility] LABORATORYCLIA [id number] [address] OF [facility] MCV (RBC) [Entitic vol] 101.4 fL High 80.0-100.0 [facility] Comment on above: Order Comment: Speci men Type: BLOOD SPECIMENOrdering Facility: [facility] Address: [address] [place] [address] Performed By: #### 5 8410-2 ####[facility]ORATORYCLIA [id number] [address] Nucleated RBC (Bld) [#/Vol] 10*3/uL Normal <0.01 [facility] Comment on above: Order Comment: Speci men Type: BLOOD SPECIMENOrdering Facility: [facility] Address: [address] [place] [address] Performed By: #### 5 8410-2 ####[facility] LABORATORYCLIA [id number] [address] [place] Platelet mean volume (Bld) [Entitic vol] 10.5 fL Normal 9.0-12.7 [facility] Comment on above: Order Comment: Speci men Type: BLOOD SPECIMENOrdering Facility: [facility] Address: [address] [place] [address] Performed By: #### 5 8410-2 ####[facility] LABORATORYCLIA [id number] [address] [place] Platelets (Bld) [#/Vol] 223 10*3/uL Normal 150-400 [facility] Comment on above: Order Comment: Speci men Type: BLOOD SPECIMENOrdering Facility: [facility] Address: [address] [place] [address] Performed By: #### 5 8410-2 ####[facility] LABORATORYCLIA [id number] [address] [place] RBC (Bld) [#/Vol] 3.50 10*6/uL Low 4.20-6.00 [facility] Comment on above: Order Comment: Speci men Type: BLOOD SPECIMENOrdering Facility: [facility] Address: [address] [place] [address] Performed By: #### 5 8410-2 ####[facility]ORATORYCLIA [id number] [address] [place] WBC (Bld) [#/Vol] 9.55 10*3/uL Normal 3.70-11.00 [facility] Comment on above: Order Comment: Zach ortega Type: BLOOD SPECIMENOrdering Facility: [facility] Address: [address] [place] [address] Performed By: #### 5 8410-2 ####[facility] LABORATORYCLIA [id number] [address] CONSULT PROGon 07-04-2025 CONSULT PROG Normal [facility] CONSULT PROG Normal [facility] MEDICAL EMERon 07-04-2025 MEDICAL GRISELDA Normal [facility] PT panel Coag (PPP)on 2024 INR Coag (PPP) [Relative time] 2.1 {INR} High 0.9-1.3 [facility] Comment on above: Order Comment: Zach ortega Type: BLOOD SPECIMENOrdering Facility: [facility] Address: [address] [place] [address] Result Comment: Zina min K Antagonist (VKA) Therapeutic Range: INR 2 to 3 (Target INR of 2.5)Note: For patients treated with VKA drugs, such as warfarin, the [place] [employer] 2012 Guideline recommends a therapeutic INR range of 2 to 3 (target INR of 2.5). This recommendation includes high-risk patients with antiphospholipid syndrome with previous arterial or venous thromboembolism, current-generation mechanical or bioprosthetic aortic heart valve replacement.Note: Patients with mechanical aortic valve replacement and additional risk factors for thromboembolic events (atrial fibrillation, previous thromboembolism, LV dysfunction, hypercoagulable conditions) or an older generation mechanical AVR (i.e., ball in-Cage) or any mechanical MVR should have a INR therapeutic range of 2.5 to 3.5 (target INR of 3).Karon GH, et al. Chest 2012, 141:7S-47SNishimura RA, et al. [facility] 2017, 70: 252-289 Performed By: #### 3 4528-0 ####[facility] LABORATORYCLIA [id number] [address] PT Coag (PPP) [Time] 21.4 s High 9.7-13.0 [facility] Comment on above: Order Comment: Zach ortega Type: BLOOD SPECIMENOrdering Facility: [facility] Address: [address] [place] [address] Performed By: #### 3 4528-0 ####[facility] LABORATORYCLIA [id number] [place] [id number] [facility] CASE MANAGEMon 07-03-2025 CASE MANAGEM Normal [facility] CONSULT PROGon 07-03-2025 CONSULT PROG Normal [facility] CONSULT PROG Normal [facility] CONSULT PROG Normal [facility] NM INFECTION LIMITED WBCon 0 07-03-2025 NM INFECTION LIMITED WBC Normal [facility] PT panel Coag (PPP)on 2024 INR Coag (PPP) [Relative time] 3.4 {INR} High 0.9-1.3 [facility] Comment on above: Order Comment: Zach ortega Type: BLOOD SPECIMENOrdering Facility: [facility] Address: [address] [place] [address] Result Comment: Zina min K Antagonist (VKA) Therapeutic Range: INR 2 to 3 (Target INR of 2.5)Note: For patients treated with VKA drugs, such as warfarin, the [place] [employer] 2012 Guideline recommends a therapeutic INR range of 2 to 3 (target INR of 2.5). This recommendation includes high-risk patients with antiphospholipid syndrome with previous arterial or venous thromboembolism, current-generation mechanical or bioprosthetic aortic heart valve replacement.Note: Patients with mechanical aortic valve replacement and additional risk factors for thromboembolic events (atrial fibrillation, previous thromboembolism, LV dysfunction, hypercoagulable conditions) or an older generation mechanical AVR (i.e., ball in-Cage) or any mechanical MVR should have a INR therapeutic range of 2.5 to 3.5 (target INR of 3).Karon GH, et al. Chest 2012, 141:7S-47SChino ELIZABETH et al. [facility] 2017, 70: 252-289 Performed By: #### 3 4528-0 ####[facility] LABORATORYCLIA [id number] [place] [id number] [place] PT Coag (PPP) [Time] 33.5 s High 9.7-13.0 [facility] Comment on above: Order Comment: Speci men Type: BLOOD SPECIMENOrdering Facility: [facility] Address: [address] [place] [address] Performed By: #### 3 4528-0 ####[facility] LABORATORYCLIA [id number] [address] [place] Vancomycin random [Mass/Vol] on 07-03-2025 Vancomycin [Mass/Vol] 21.0 ug/mL High 10.0-20.0 [facility] Comment on above: Order Comment: Speci men Type: BLOOD SPECIMENOrdering Facility: [facility] Address: [address] [place] [address] Result Comment: Refe rence ranges and high/low indicator flags are provided as general guidelines only. The treating physician must determine appropriate target levels/dosing based on the specific clinical situation. Performed By: #### 4 091-5 ####[facility] LABORATORYCLIA [id number] [address] [place] Ammonia Plas-sCncon 07-02-20 25 Ammonia (P) [Moles/Vol] 29 umol/L Normal 16-60 [facility] Comment on above: Order Comment: Speci men Type: BLOOD SPECIMENOrdering Facility: [facility] Address: [address] [place] [address] Performed By: #### 1 6362-6 ####[facility] LABORATORYCLIA [id number] [place] [address] [place] Basic metabolic 2000 panelon 07-02-2025 Anion gap [Moles/Vol] 16 mmol/L High 8-15 [facility] Comment on above: Order Comment: Speci men Type: BLOOD SPECIMENOrdering Facility: [facility] Address: [address] [place] [address] Performed By: #### 2 4321-2, 84733-9 ####[facility] LABORATORYCLIA [id number] [place] [address] [place] Calcium [Mass/Vol] 9.0 mg/dL Normal 8.5-10.2 [facility] Comment on above: Order Comment: Speci men Type: BLOOD SPECIMENOrdering Facility: [facility] Address: [address] [place] [address] Performed By: #### 2 4321-2, ####[facility] LABORATORYCLIA [id number] [place] [address] [place] Chloride [Moles/Vol] 95 mmol/L Low 98-107 [facility] Comment on above: Order Comment: Speci men Type: BLOOD SPECIMENOrdering Facility: [facility] Address: [address] [place] [address] Performed By: #### 2 432-2, ####[facility] LABORATORYCLIA [id number] [place] [address] [place] CO2 [Moles/Vol] 24 mmol/L Normal 22-30 [facility] Comment on above: Order Comment: Speci men Type: BLOOD SPECIMENOrdering Facility: [facility] Address: [address] [place] [address] Performed By: #### 2 4320-2, ####[facility] LABORATORYCLIA [id number] [place] [address] [place] Creatinine [Mass/Vol] 3.38 mg/dL High 0.73-1.22 [facility] Comment on above: Order Comment: Speci men Type: BLOOD SPECIMENOrdering Facility: [facility] Address: [address] [place] [address] Performed By: #### 2 1-2, ####[facility] LABORATORYCLIA [id number] [place] [address] [place] eGFRcr SerPlBld CKD-EPI 2020 18 mL/min/1.73m??? Low >=60 [facility] Comment on above: Order Comment: Speci men Type: BLOOD SPECIMENOrdering Facility: [facility] Address: [address] [place] [address] Result Comment: Faviola mated Glomerular Filtration Rate (eGFR) is calculated using the 2020 CKD-EPI creatinine equation. This equation utilizes serum creatinine, sex, and age as parameters. The creatinine assay has traceable calibration to isotope dilution-mass spectrometry. Refer to KDIGO guidelines for clinical interpretation. In patients with unstable renal function, e.g. those with acute kidney injury, the eGFR may not accurately reflect actual GFR. Performed By: #### 2 432-, ####[facility] LABORATORYCLIA [id number] [place] [address] [place] Glucose [Mass/Vol] 95 mg/dL Normal 74-99 [facility] Comment on above: Order Comment: Zach ortega Type: BLOOD SPECIMENOrdering Facility: [facility] Address: [address] [place] [address] Result Comment: The [place] [employer] (ADA) provides guidance for cutoff values for fasting glucose and random glucose. The ADA defines fasting as no caloric intake for at least 8 hours. Fasting plasma glucose results between 100 to 125 mg/dL indicate increased risk for diabetes (prediabetes).Fasting plasma glucose results greater than or equal to 126 mg/dL meet the criteria for diagnosis of diabetes. In the absence of unequivocal hyperglycemia, results should be confirmed by repeat testing. In a patient with classic symptoms of hyperglycemia or hyperglycemic crisis, random plasma glucose results greater than or equal to 200 mg/dL meet the criteria for diagnosis of diabetes.Reference: Standards of Medical Care in Diabetes 2016, [place] [employer]. Diabetes Care. 2016.39(Suppl 1). Performed By: #### 2 432-, ####[facility] LABORATORYCLIA [id number] [place] [address] [place] Potassium [Moles/Vol] 4.1 mmol/L Normal 3.7-5.1 [facility] Comment on above: Order Comment: Zach ortega Type: BLOOD SPECIMENOrdering Facility: [facility] Address: [address] [address] Performed By: #### 2 432-, ####[facility] LABORATORYCLIA [id number] [place] [address] [place] Sodium [Moles/Vol] 135 mmol/L Low 136-144 [facility] Comment on above: Order Comment: Speci men Type: BLOOD SPECIMENOrdering Facility: [facility] Address: [address] [place] [address] Performed By: #### 2 4321-2, 41449-2 ####[facility] LABORATORYCLIA [id number] [place] [address] [place] Urea nitrogen [Mass/Vol] 16 mg/dL Normal 9-24 [facility] Comment on above: Order Comment: Speci men Type: BLOOD SPECIMENOrdering Facility: [facility] Address: [address] [place] [address] Performed By: #### 2 4321-2, 83241-4 ####[facility] LABORATORYCLIA [id number] [address] [place] CASE MANAGEMon 07-02-2025 CASE MANAGEM Normal [facility] CASE MANAGEM Normal [facility] CBC panel Auto (Bld)on 07-02 Erythrocyte distribution width (RBC) [Ratio] 17.3 % High 11.5-15.0 [facility] Comment on above: Order Comment: Speci men Type: BLOOD SPECIMENOrdering Facility: [facility] Address: [address] [place] [address] Performed By: #### 5 8410-2 ####[facility] LABORATORYCLIA [id number] [place] [address] [place] Hematocrit (Bld) [Volume fraction] 35.2 % Low 39.0-51.0 [facility] Comment on above: Order Comment: Speci men Type: BLOOD SPECIMENOrdering Facility: [facility] Address: [address] [place] [address] Performed By: #### 5 8410-2 ####[facility] LABORATORYCLIA [id number] [place] [address] [place] Hemoglobin (Bld) [Mass/Vol] 10.8 g/dL Low 13.0-17.0 [facility] Comment on above: Order Comment: Speci men Type: BLOOD SPECIMENOrdering Facility: [facility] Address: [address] [place] [address] Performed By: #### 5 8410-2 ####[facility] LABORATORYCLIA [id number] [address] MCH (RBC) [Entitic mass] 30.4 pg Normal 26.0-34.0 [facility] Comment on above: Order Comment: Speci men Type: BLOOD SPECIMENOrdering Facility: [facility] Address: [address] [place] [address] Performed By: #### 5 8410-2 ####[facility] LABORATORYCLIA [id number] [address] MCHC (RBC) [Mass/Vol] 30.7 g/dL Normal 30.5-36.0 [facility] Comment on above: Order Comment: Speci men Type: BLOOD SPECIMENOrdering Facility: [facility] Address: [address] [place] [address] Performed By: #### 5 8410-2 ####[facility] LABORATORYCLIA [id number] [address] MCV (RBC) [Entitic vol] 99.2 fL Normal 80.0-100.0 [facility] Comment on above: Order Comment: Speci men Type: BLOOD SPECIMENOrdering Facility: [facility] Address: [address] [place] [address] Performed By: #### 5 8410-2 ####[facility] LABORATORYCLIA [id number] [address] Nucleated RBC (Bld) [#/Vol] 10*3/uL Normal <0.01 [facility] Comment on above: Order Comment: Speci men Type: BLOOD SPECIMENOrdering Facility: [facility] Address: [address] [place] [address] Performed By: #### 5 8410-2 ####[facility] LABORATORYCLIA [id number] [address] [place] Platelet mean volume (Bld) [Entitic vol] 9.8 fL Normal 9.0-12.7 [facility] Comment on above: Order Comment: Speci men Type: BLOOD SPECIMENOrdering Facility: [facility] Address: [address] [place] [address] Performed By: #### 5 8410-2 ####[facility]ORATORYCLIA [id number] [place] [address] [place] Platelets (Bld) [#/Vol] 223 10*3/uL Normal 150-400 [facility] Comment on above: Order Comment: Speci men Type: BLOOD SPECIMENOrdering Facility: [facility] Address: [address] [place] [address] Performed By: #### 5 8410-2 ####[facility]ORATORYCLIA [id number] [place] [address] [place] RBC (Bld) [#/Vol] 3.55 10*6/uL Low 4.20-6.00 [facility] Comment on above: Order Comment: Speci men Type: BLOOD SPECIMENOrdering Facility: [facility] Address: [address] [place] [address] Performed By: #### 5 8410-2 ####[facility]ORATORYCLIA [id number] [address] [place] WBC (Bld) [#/Vol] 9.46 10*3/uL Normal 3.70-11.00 [facility] Comment on above: Order Comment: Speci men Type: BLOOD SPECIMENOrdering Facility: [facility] Address: [address] [place] [address] Performed By: #### 5 8410-2 ####[facility]ORATORYCLIA [id number] [address] [place] CONSULTon 07-02-2025 CONSULT Normal [facility] CONSULT PROGon 07-02-2025 CONSULT PROG Normal [facility] CONSULT PROG Normal [facility] CONSULT PROG Normal [facility] ECG COMPLETEon 07-02-2025 ECG COMPLETE Normal [facility] Gas and Carbon monoxide pane l (BldV)on 07-02-2025 Base excess Calc (BldV) [Moles/Vol] 1 mmol/L Normal 0-2 [facility] Comment on above: Order Comment: Speci men Type: VENOUS BLOOD SPECIMENOrdering Facility: [facility] Address: [address] [place] [address] Performed By: #### 2 4344-4 ####[facility]ORATORYCLIA [id number] [address] [place] Body temperature 98.6 [degF] Normal [facility] Comment on above: Order Comment: Speci men Type: VENOUS BLOOD SPECIMENOrdering Facility: [facility] Address: [address] [place] [address] Performed By: #### 2 4344-4 ####[facility]ORATORYCLIA [id number] [address] [place] Calcium.ionized (BldV) [Mass/Vol] 1.05 mmol/L Low 1.08-1.30 [facility] Comment on above: Order Comment: Speci men Type: VENOUS BLOOD SPECIMENOrdering Facility: [facility] Address: [address] [place] [address] Performed By: #### 2 4344-4 ####[facility]ORATORYCLIA [id number] [address] [place] Calcium.ionized adjusted to pH 7.4 (BldA) [Moles/Vol] 1.04 mmol/L Low 1.08-1.30 [facility] Comment on above: Order Comment: Speci men Type: VENOUS BLOOD SPECIMENOrdering Facility: [facility] Address: [address] [place] [address] Performed By: #### 2 4344-4 ####[facility]ORATORYCLIA [id number] [address] [place] Carboxyhemoglobin (BldV) [Mass fraction] 3.7 % High 0.0-2.0 [facility] Comment on above: Order Comment: Speci men Type: VENOUS BLOOD SPECIMENOrdering Facility: [facility] Address: [address] [place] [address] Result Comment: Carb oxyhemoglobin Reference Range for Smokers: 2.0-8.0% Performed By: #### 2 4344-4 ####[facility] LABORATORYCLIA [id number] [place] [address] [place] Chloride [Moles/Vol] 102 mmol/L Normal 97-105 [facility] Comment on above: Order Comment: Speci men Type: VENOUS BLOOD SPECIMENOrdering Facility: [facility] Address: [address] [place] [address] Performed By: #### 2 4344-4 ####[facility]ORATORYCLIA [id number] [address] [place] CO2 (BldV) [Partial pressure] 45 mm[Hg] Normal 42-55 [facility] Comment on above: Order Comment: Speci men Type: VENOUS BLOOD SPECIMENOrdering Facility: [facility] Address: [address] [place] [address] Performed By: #### 2 4344-4 ####[facility]ORATORYCLIA [id number] [place] [address] [place] Glucose [Mass/Vol] 96 mg/dL Normal 60-105 [facility] Comment on above: Order Comment: Speci men Type: VENOUS BLOOD SPECIMENOrdering Facility: [facility] Address: [address] [place] [address] Performed By: #### 2 4344-4 ####[facility] LABORATORYCLIA [id number] [place] [address] [place] HCO3 (Bld) [Moles/Vol] 26 mmol/L Normal 24-28 [facility] Comment on above: Order Comment: Speci men Type: VENOUS BLOOD SPECIMENOrdering Facility: [facility] Address: [address] [place] [address] Performed By: #### 2 4344-4 ####[facility]ORATORYCLIA [id number] [address] Hematocrit (Bld) [Volume fraction] 32.5 % Low 39.0-51.0 [facility] Comment on above: Order Comment: Speci men Type: VENOUS BLOOD SPECIMENOrdering Facility: [facility] Address: [address] [place] [address] Performed By: #### 2 4344-4 ####[facility]ORATORYCLIA [id number] [address] [place] Hemoglobin (Bld) [Mass/Vol] 10.5 g/dL Low 13.0-17.0 [facility] Comment on above: Order Comment: Speci men Type: VENOUS BLOOD SPECIMENOrdering Facility: [facility] Address: [address] [place] [address] Performed By: #### 2 4344-4 ####[facility] LABORATORYCLIA [id number] [address] STATES [facility] Lactate [Moles/Vol] 1.4 mmol/L Normal 0.5-2.2 [facility] Comment on above: Order Comment: Speci men Type: VENOUS BLOOD SPECIMENOrdering Facility: [facility] Address: [address] [place] [address] Performed By: #### 2 4344-4 ####[facility]ORATORYCLIA [id number] [address] [place] Methemoglobin (Bld) [Mass fraction] 0.7 % Normal 0.0-1.5 [facility] Comment on above: Order Comment: Speci men Type: VENOUS BLOOD SPECIMENOrdering Facility: [facility] Address: [address] [place] [address] Performed By: #### 2 4344-4 ####[facility]ORATORYCLIA [id number] [address] [place] O2 THERAPY RA=Room Air Normal [facility] Comment on above: Order Comment: Speci men Type: VENOUS BLOOD SPECIMENOrdering Facility: [facility] Address: [address] [place] [address] Performed By: #### 2 4344-4 ####[facility]ATORYCLIA [id number] [place] [address] [place] Oxygen (BldV) [Partial pressure] 57 mm[Hg] High 35-45 [facility] Comment on above: Order Comment: Speci men Type: VENOUS BLOOD SPECIMENOrdering Facility: [facility] Address: [address] [place] [address] Performed By: #### 2 4344-4 ####[facility]ORATORYCLIA [id number] [address] [place] Oxygen saturation in Venous blood 85 % Normal 60-85 [facility] Comment on above: Order Comment: Speci men Type: VENOUS BLOOD SPECIMENOrdering Facility: [facility] Address: [address] [place] [address] Performed By: #### 2 4344-4 ####[facility]ORATORYCLIA [id number] [address] [place] Oxyhemoglobin (BldV) [Mass fraction] 82 % Normal 60-85 [facility] Comment on above: Order Comment: Speci men Type: VENOUS BLOOD SPECIMENOrdering Facility: [facility] Address: [address] [place] [address] Performed By: #### 2 4344-4 ####[facility]ORATORYCLIA [id number] [place] [id number] [place] pH (BldV) 7.38 [pH] Normal 7.32-7.42 [facility] Comment on above: Order Comment: Speci men Type: VENOUS BLOOD SPECIMENOrdering Facility: [facility] Address: [address] [place] [address] Performed By: #### 2 4344-4 ####[facility]ORATORYCLIA [id number] [address] [place] Potassium [Moles/Vol] 4.0 mmol/L Normal 3.5-5.0 [facility] Comment on above: Order Comment: Speci men Type: VENOUS BLOOD SPECIMENOrdering Facility: [facility] Address: [address] [place] [address] Performed By: #### 2 4344-4 ####[facility]ATORYCLIA [id number] [address] [place] Sodium [Moles/Vol] 134 mmol/L Low 136-144 [facility] Comment on above: Order Comment: Speci men Type: VENOUS BLOOD SPECIMENOrdering Facility: [facility] Address: [address] [place] [address] Performed By: #### 2 4344-4 ####[facility]ORATORYCLIA [id number] [address] [place] Base excess Calc (BldV) [Moles/Vol] 3 mmol/L High 0-2 [facility] Comment on above: Order Comment: Speci men Type: VENOUS BLOOD SPECIMENOrdering Facility: [facility] Address: [address] [place] [address] Performed By: #### 2 4344-4 ####[facility]ORATORYCLIA [id number] [address] STATES OF [facility] Body temperature 98.6 [degF] Normal [facility] Comment on above: Order Comment: Speci men Type: VENOUS BLOOD SPECIMENOrdering Facility: [facility] Address: [address] [place] [address] Performed By: #### 2 4344-4 ####[facility]ORATORYCLIA [id number] [address] [place] Calcium.ionized (BldV) [Mass/Vol] 1.05 mmol/L Low 1.08-1.30 [facility] Comment on above: Order Comment: Speci men Type: VENOUS BLOOD SPECIMENOrdering Facility: [facility] Address: [address] [place] [address] Performed By: #### 2 4344-4 ####[facility]ORATORYCLIA [id number] [address] [place] Calcium.ionized adjusted to pH 7.4 (BldA) [Moles/Vol] 1.08 mmol/L Normal 1.08-1.30 [facility] Comment on above: Order Comment: Speci men Type: VENOUS BLOOD SPECIMENOrdering Facility: [facility] Address: [address] [place] [address] Performed By: #### 2 4344-4 ####[facility]ORATORYCLIA [id number] [address] [place] Carboxyhemoglobin (BldV) [Mass fraction] 3.6 % High 0.0-2.0 [facility] Comment on above: Order Comment: Speci men Type: VENOUS BLOOD SPECIMENOrdering Facility: [facility] Address: [address] [place] [address] Result Comment: Carb oxyhemoglobin Reference Range for Smokers: 2.0-8.0% Performed By: #### 2 4344-4 ####[facility]ORATORYCLIA [id number] [address] [place] Chloride [Moles/Vol] 101 mmol/L Normal 97-105 [facility] Comment on above: Order Comment: Speci men Type: VENOUS BLOOD SPECIMENOrdering Facility: [facility] Address: [address] [place] [address] Performed By: #### 2 4344-4 ####[facility]ORATORYCLIA [id number] [address] [place] CO2 (BldV) [Partial pressure] 39 mm[Hg] Low 42-55 [facility] Comment on above: Order Comment: Speci men Type: VENOUS BLOOD SPECIMENOrdering Facility: [facility] Address: [address] [place] [address] Performed By: #### 2 4344-4 ####[facility]ORATORYCLIA [id number] [place] [address] [place] Glucose [Mass/Vol] 96 mg/dL Normal 60-105 [facility] Comment on above: Order Comment: Speci men Type: VENOUS BLOOD SPECIMENOrdering Facility: [facility] Address: [address] [place] [address] Performed By: #### 2 4344-4 ####[facility]ORATORYCLIA [id number] [address] [place] HCO3 (Bld) [Moles/Vol] 27 mmol/L Normal 24-28 [facility] Comment on above: Order Comment: Speci men Type: VENOUS BLOOD SPECIMENOrdering Facility: [facility] Address: [address] [place] [address] Performed By: #### 2 4344-4 ####[facility]ORATORYCLIA [id number] [address] [place] Hematocrit (Bld) [Volume fraction] 34.8 % Low 39.0-51.0 [facility] Comment on above: Order Comment: Speci men Type: VENOUS BLOOD SPECIMENOrdering Facility: [facility] Address: [address] [place] [address] Performed By: #### 2 4344-4 ####[facility]ORATORYCLIA [id number] [address] [place] Hemoglobin (Bld) [Mass/Vol] 11.3 g/dL Low 13.0-17.0 [facility] Comment on above: Order Comment: Speci men Type: VENOUS BLOOD SPECIMENOrdering Facility: [facility] Address: [address] [place] [address] Performed By: #### 2 4344-4 ####[facility]ORATORYCLIA [id number] [address] [place] Lactate [Moles/Vol] 1.3 mmol/L Normal 0.5-2.2 [facility] Comment on above: Order Comment: Speci men Type: VENOUS BLOOD SPECIMENOrdering Facility: [facility] Address: [address] [place] [address] Performed By: #### 2 4344-4 ####[facility]ORATORYCLIA [id number] [address] [place] Methemoglobin (Bld) [Mass fraction] 0.6 % Normal 0.0-1.5 [facility] Comment on above: Order Comment: Speci men Type: VENOUS BLOOD SPECIMENOrdering Facility: [facility] Address: [address] [place] [address] Performed By: #### 2 4344-4 ####[facility]ORATORYCLIA [id number] [place] [id number] [facility] [place] O2 THERAPY RA=Room Air Normal [facility] Comment on above: Order Comment: Speci men Type: VENOUS BLOOD SPECIMENOrdering Facility: [facility] Address: [address] [place] [address] Performed By: #### 2 4344-4 ####[facility]ORATORYCLIA [id number] [place], [place] [address] [place] [address] [place] Oxygen (BldV) [Partial pressure] 71 mm[Hg] High 35-45 [facility] Comment on above: Order Comment: Speci men Type: VENOUS BLOOD SPECIMENOrdering Facility: [facility] Address: [address] [place] [address] Performed By: #### 2 4344-4 ####[facility]ORATORYCLIA [id number] [address] [place] Oxygen saturation in Venous blood 94 % High 60-85 [facility] Comment on above: Order Comment: Speci men Type: VENOUS BLOOD SPECIMENOrdering Facility: [facility] Address: [address] [place] [address] Performed By: #### 2 4344-4 ####[facility]ATORYCLIA [id number] [place] [address] [place] Oxyhemoglobin (BldV) [Mass fraction] 90 % High 60-85 [facility] Comment on above: Order Comment: Speci men Type: VENOUS BLOOD SPECIMENOrdering Facility: [facility] Address: [address] [place] [address] Performed By: #### 2 4344-4 ####[facility]ORATORYCLIA [id number] [place] [id number] [place] pH (BldV) 7.45 [pH] High 7.32-7.42 [facility] Comment on above: Order Comment: Speci men Type: VENOUS BLOOD SPECIMENOrdering Facility: [facility] Address: [address] [place] [address] Performed By: #### 2 4344-4 ####[facility] LABORATORYCLIA [id number] [place] [address] [place] Potassium [Moles/Vol] 3.9 mmol/L Normal 3.5-5.0 [facility] Comment on above: Order Comment: Speci men Type: VENOUS BLOOD SPECIMENOrdering Facility: [facility] Address: [address] [place] [address] Performed By: #### 2 4344-4 ####[facility]ORATORYCLIA [id number] [address] [place] Sodium [Moles/Vol] 133 mmol/L Low 136-144 [facility] Comment on above: Order Comment: Speci men Type: VENOUS BLOOD SPECIMENOrdering Facility: [facility] Address: [address] [place] [address] Performed By: #### 2 4344-4 ####[facility] LABORATORYCLIA [id number] [place] [address] [place] Magnesium SerPl-mCncon 07-02 Magnesium [Mass/Vol] 2.0 mg/dL Normal 1.7-2.3 [facility] Comment on above: Order Comment: Speci men Type: BLOOD SPECIMENOrdering Facility: [facility] Address: [address] [place] [address] Performed By: #### 2 4321-2, 87100-6 ####[facility] LABORATORYCLIA [id number] [place] [address] [place] NUTRITIONon 07-02-2025 NUTRITION Normal [facility] PT panel Coag (PPP)on 2024 INR Coag (PPP) [Relative time] 3.1 {INR} High 0.9-1.3 [facility] Comment on above: Order Comment: Speci men Type: BLOOD SPECIMENOrdering Facility: [facility] Address: [address] [place] [address] Result Comment: Zina min K Antagonist (VKA) Therapeutic Range: INR 2 to 3 (Target INR of 2.5)Note: For patients treated with VKA drugs, such as warfarin, the [employer] [employer] 2012 Guideline recommends a therapeutic INR range of 2 to 3 (target INR of 2.5). This recommendation includes high-risk patients with antiphospholipid syndrome with previous arterial or venous thromboembolism, current-generation mechanical or bioprosthetic aortic heart valve replacement.Note: Patients with mechanical aortic valve replacement and additional risk factors for thromboembolic events (atrial fibrillation, previous thromboembolism, LV dysfunction, hypercoagulable conditions) or an older generation mechanical AVR (i.e., ball in-Cage) or any mechanical MVR should have a INR therapeutic range of 2.5 to 3.5 (target INR of 3).Karon GH, et al. Chest 2012, 141:7S-47SNishimura RA, et al. [facility] 2017, 70: 252-289 Performed By: #### 3 4528-0 ####[facility]ORATORYCLIA [id number] [place] [address] [place] PT Coag (PPP) [Time] 31.4 s High 9.7-13.0 [facility] Comment on above: Order Comment: Speci men Type: BLOOD SPECIMENOrdering Facility: [facility] Address: [address] [place] [address] Performed By: #### 3 4528-0 ####[facility]ORATORYCLIA [id number] [address] [place] THERAPY NTon 07-02-2025 THERAPY NT Normal [facility] THERAPY NT Normal [facility] XR ABDOMEN 1V SUPINEon 07-02 XR ABDOMEN 1V SUPINE Normal [facility] CASE MANAGEMon 07-01-2025 CASE MANAGEM Normal [facility] CBC W Auto Differential pane l (Bld)on 07-01-2025 Basophils (Bld) [#/Vol] 0.10 10*3/uL Normal <0.11 [facility] Comment on above: Order Comment: Speci men Type: BLOOD SPECIMENOrdering Facility: [facility] Address: [address] [place] [address] Performed By: #### 5 7021-8 ####[facility] LABORATORYCLIA [id number] [address] [place] Basophils/100 WBC (Bld) 1.1 % Normal [facility] Comment on above: Order Comment: Speci men Type: BLOOD SPECIMENOrdering Facility: [facility] Address: [address] [place] [address] Performed By: #### 5 7021-8 ####[facility]ORATORYCLIA [id number] [address] OF [facility] Differential cell count method Nom (Bld) Auto Normal [facility] Comment on above: Order Comment: Speci men Type: BLOOD SPECIMENOrdering Facility: [facility] Address: [address] [place] [address] Performed By: #### 5 7021-8 ####[facility] LABORATORYCLIA [id number] [address] [place] Eosinophils (Bld) [#/Vol] 0.43 10*3/uL Normal <0.46 [facility] Comment on above: Order Comment: Speci men Type: BLOOD SPECIMENOrdering Facility: [facility] Address: [address] [place] [address] Performed By: #### 5 7021-8 ####[facility]ORATORYCLIA [id number] [address] Eosinophils/100 WBC (Bld) 4.7 % Normal [facility] Comment on above: Order Comment: Speci men Type: BLOOD SPECIMENOrdering Facility: [facility] Address: [address] [place] [address] Performed By: #### 5 7021-8 ####[facility]ORATORYCLIA [id number] [address] Erythrocyte distribution width (RBC) [Ratio] 17.8 % High 11.5-15.0 [facility] Comment on above: Order Comment: Speci men Type: BLOOD SPECIMENOrdering Facility: [facility] Address: [address] [place], [place] [address] Performed By: #### 5 7021-8 ####[facility] LABORATORYCLIA [id number] [address] [place] Hematocrit (Bld) [Volume fraction] 37.1 % Low 39.0-51.0 [facility] Comment on above: Order Comment: Speci men Type: BLOOD SPECIMENOrdering Facility: [facility] Address: [address] [place] [address] Performed By: #### 5 7021-8 ####[facility] LABORATORYCLIA [id number] [address] [place] Hemoglobin (Bld) [Mass/Vol] 10.9 g/dL Low 13.0-17.0 [facility] Comment on above: Order Comment: Speci men Type: BLOOD SPECIMENOrdering Facility: [facility] Address: [address] [place] [address] Performed By: #### 5 7021-8 ####[facility] LABORATORYCLIA [id number] [address] [place] Immature granulocytes (Bld) [#/Vol] 0.06 10*3/uL Normal <0.10 [facility] Comment on above: Order Comment: Speci men Type: BLOOD SPECIMENOrdering Facility: [facility] Address: [address] [place] [address] Performed By: #### 5 7021-8 ####[facility] LABORATORYCLIA [id number] [address] [place] Immature granulocytes/100 WBC (Bld) 0.7 % Normal [facility] Comment on above: Order Comment: Speci men Type: BLOOD SPECIMENOrdering Facility: [facility] Address: [address] [place] [address] Performed By: #### 5 7021-8 ####[facility] LABORATORYCLIA [id number] [place] [address] [place] Lymphocytes (Bld) [#/Vol] 1.54 10*3/uL Normal 1.00-4.00 [facility] Comment on above: Order Comment: Speci men Type: BLOOD SPECIMENOrdering Facility: [facility] Address: [address] [place] [address] Performed By: #### 5 7021-8 ####[facility] LABORATORYCLIA [id number] [address] STATES [facility] Lymphocytes/100 WBC (Bld) 16.8 % Normal [facility] Comment on above: Order Comment: Speci men Type: BLOOD SPECIMENOrdering Facility: [facility] Address: [address] [place] [address] Performed By: #### 5 7021-8 ####[facility] LABORATORYCLIA [id number] [address] STATES [facility] MCH (RBC) [Entitic mass] 29.7 pg Normal 26.0-34.0 [facility] Comment on above: Order Comment: Speci men Type: BLOOD SPECIMENOrdering Facility: [facility] Address: [address] [place] [address] Performed By: #### 5 7021-8 ####[facility] LABORATORYCLIA [id number] [address] MCHC (RBC) [Mass/Vol] 29.4 g/dL Low 30.5-36.0 [facility] Comment on above: Order Comment: Speci men Type: BLOOD SPECIMENOrdering Facility: [facility] Address: [address] [place] [address] Performed By: #### 5 7021-8 ####[facility] LABORATORYCLIA [id number] [address] [place] MCV (RBC) [Entitic vol] 101.1 fL High 80.0-100.0 [facility] Comment on above: Order Comment: Speci men Type: BLOOD SPECIMENOrdering Facility: [facility] Address: [address] [place] [address] Performed By: #### 5 7021-8 ####[facility] LABORATORYCLIA [id number] [place] [address] [place] Monocytes (Bld) [#/Vol] 0.96 10*3/uL High <0.87 [facility] Comment on above: Order Comment: Speci men Type: BLOOD SPECIMENOrdering Facility: [facility] Address: [address] [place] [address] Performed By: #### 5 7021-8 ####[facility]ORATORYCLIA [id number] [address] [place] Monocytes/100 WBC (Bld) 10.5 % Normal [facility] Comment on above: Order Comment: Speci men Type: BLOOD SPECIMENOrdering Facility: [facility] Address: [address] [place] [address] Performed By: #### 5 7021-8 ####[facility] LABORATORYCLIA [id number] [address] [place] Neutrophils (Bld) [#/Vol] 6.09 10*3/uL Normal 1.45-7.50 [facility] Comment on above: Order Comment: Speci men Type: BLOOD SPECIMENOrdering Facility: [facility] Address: [address] [place] [address] Performed By: #### 5 7021-8 ####[facility] [facility]ORATORYCLIA [id number] [address] [place] Neutrophils/100 WBC (Bld) 66.2 % Normal [facility] Comment on above: Order Comment: Speci men Type: BLOOD SPECIMENOrdering Facility: [facility] Address: [address] [place] [address] Performed By: #### 5 7021-8 ####[facility] [facility]ORATORYCLIA [id number] [place] [address] [place] Nucleated RBC (Bld) [#/Vol] 10*3/uL Normal <0.01 [facility] Comment on above: Order Comment: Speci men Type: BLOOD SPECIMENOrdering Facility: [facility] Address: [address] [place] [address] Performed By: #### 5 7021-8 ####[facility] [facility]ORATORYCLIA [id number] [address] [place] Nucleated RBC/100 WBC (Bld) [Ratio] 0.0 /100 WBC Normal [facility] Comment on above: Order Comment: Speci men Type: BLOOD SPECIMENOrdering Facility: [facility] Address: [address] [place] [address] Performed By: #### 5 7021-8 ####[facility] LABORATORYCLIA [id number] [address] [place] Platelet mean volume (Bld) [Entitic vol] 11.1 fL Normal 9.0-12.7 [facility] Comment on above: Order Comment: Speci men Type: BLOOD SPECIMENOrdering Facility: [facility] Address: [address] [place] [address] Performed By: #### 5 7021-8 ####[facility] LABORATORYCLIA [id number] [address] [place] Platelets (Bld) [#/Vol] 176 10*3/uL Normal 150-400 [facility] Comment on above: Order Comment: Speci men Type: BLOOD SPECIMENOrdering Facility: [facility] Address: [address] [place] [address] Performed By: #### 5 7021-8 ####[facility] LABORATORYCLIA [id number] [address] [place] RBC (Bld) [#/Vol] 3.67 10*6/uL Low 4.20-6.00 [facility] Comment on above: Order Comment: Speci men Type: BLOOD SPECIMENOrdering Facility: [facility] Address: [address] [place] [address] Performed By: #### 5 7021-8 ####[facility] LABORATORYCLIA [id number] [address] [place] WBC (Bld) [#/Vol] 9.18 10*3/uL Normal 3.70-11.00 [facility] Comment on above: Order Comment: Speci men Type: BLOOD SPECIMENOrdering Facility: [facility] Address: [address] [place] [address] Performed By: #### 5 7021-8 ####[facility] LABORATORYCLIA [id number] [address] OF [facility] CONSULT PROGon 07-01-2025 CONSULT PROG Normal [facility] CONSULT PROG Normal [facility] Comprehensive metabolic 2000 panelon 07-01-2025 Albumin [Mass/Vol] 3.0 g/dL Low 3.9-4.9 [facility] Comment on above: Order Comment: Speci men Type: BLOOD SPECIMENOrdering Facility: [facility] Address: [address] [place] [address] Performed By: #### 2 4323-8 ####[facility] LABORATORYCLIA [id number] [address] [place] ALP [Catalytic activity/Vol] 499 U/L High 38-113 [facility] Comment on above: Order Comment: Speci men Type: BLOOD SPECIMENOrdering Facility: [facility] Address: [address] [place] [address] Performed By: #### 2 4323-8 ####[facility] LABORATORYCLIA [id number] [address] [place] ALT With P-5'-P [Catalytic activity/Vol] 14 U/L Normal 10-54 [facility] Comment on above: Order Comment: Speci men Type: BLOOD SPECIMENOrdering Facility: [facility] Address: [address] [place] [address] Performed By: #### 2 4323-8 ####[facility] LABORATORYCLIA [id number] [address] [place] Anion gap [Moles/Vol] 15 mmol/L Normal 8-15 [facility] Comment on above: Order Comment: Speci men Type: BLOOD SPECIMENOrdering Facility: [facility] Address: [address] [place] [address] Performed By: #### 2 4323-8 ####[facility] LABORATORYCLIA [id number] [place] [address] [place] AST With P-5'-P [Catalytic activity/Vol] 32 U/L Normal 14-40 [facility] Comment on above: Order Comment: Speci men Type: BLOOD SPECIMENOrdering Facility: [facility] Address: [address] [place] [address] Performed By: #### 2 4323-8 ####[facility] LABORATORYCLIA [id number] [place] [address] [place] Bilirubin [Mass/Vol] 0.7 mg/dL Normal 0.2-1.3 [facility] Comment on above: Order Comment: Speci men Type: BLOOD SPECIMENOrdering Facility: [facility] Address: [address] [place] [address] Performed By: #### 2 4323-8 ####[facility] LABORATORYCLIA [id number] [place] [address] [place] Calcium [Mass/Vol] 9.0 mg/dL Normal 8.5-10.2 [facility] Comment on above: Order Comment: Speci men Type: BLOOD SPECIMENOrdering Facility: [facility] Address: [address] [place] [address] Performed By: #### 2 4323-8 ####[facility] LABORATORYCLIA [id number] [place] [address] [place] Chloride [Moles/Vol] 96 mmol/L Low 98-107 [facility] Comment on above: Order Comment: Speci men Type: BLOOD SPECIMENOrdering Facility: [facility] Address: [address] [place] [address] Performed By: #### 2 4323-8 ####[facility] LABORATORYCLIA [id number] [place] [address] [place] CO2 [Moles/Vol] 24 mmol/L Normal 22-30 [facility] Comment on above: Order Comment: Speci men Type: BLOOD SPECIMENOrdering Facility: [facility] Address: [address] [place] [address] Performed By: #### 2 4323-8 ####[facility] CARMELCLIA [id number] [place] [id number] [place] Creatinine [Mass/Vol] 4.73 mg/dL High 0.73-1.22 [facility] Comment on above: Order Comment: Zach ortega Type: BLOOD SPECIMENOrdering Facility: [facility] Address: [address] [place] [address] Performed By: #### 2 4323-8 ####[facility] HOSPITALIA [id number] [place] [id number] [place] eGFRcr SerPlBld CKD-EPI 2020 12 mL/min/1.73m??? Low >=60 [facility] Comment on above: Order Comment: Zach ortega Type: BLOOD SPECIMENOrdering Facility: [facility] Address: [address] [place] [address] Result Comment: Faviola mated Glomerular Filtration Rate (eGFR) is calculated using the 2020 CKD-EPI creatinine equation. This equation utilizes serum creatinine, sex, and age as parameters. The creatinine assay has traceable calibration to isotope dilution-mass spectrometry. Refer to KDIGO guidelines for clinical interpretation. In patients with unstable renal function, e.g. those with acute kidney injury, the eGFR may not accurately reflect actual GFR. Performed By: #### 2 4323-8 ####[facility] HOSPITALIA [id number] [address] [place] Glucose [Mass/Vol] 92 mg/dL Normal 74-99 [facility] Comment on above: Order Comment: Zach jordan Type: BLOOD SPECIMENOrdering Facility: [facility] Address: [address] [place] [address] Result Comment: The [place] [employer] (ADA) provides guidance for cutoff values for fasting glucose and random glucose. The ADA defines fasting as no caloric intake for at least 8 hours. Fasting plasma glucose results between 100 to 125 mg/dL indicate increased risk for diabetes (prediabetes).Fasting plasma glucose results greater than or equal to 126 mg/dL meet the criteria for diagnosis of diabetes. In the absence of unequivocal hyperglycemia, results should be confirmed by repeat testing. In a patient with classic symptoms of hyperglycemia or hyperglycemic crisis, random plasma glucose results greater than or equal to 200 mg/dL meet the criteria for diagnosis of diabetes.Reference: Standards of Medical Care in Diabetes 2016, [place] [employer]. Diabetes Care. 2016.39(Suppl 1). Performed By: #### 2 4323-8 ####[facility] LABORATORYCLIA [id number] [address] [place] Potassium [Moles/Vol] 4.8 mmol/L Normal 3.7-5.1 [facility] Comment on above: Order Comment: Speci men Type: BLOOD SPECIMENOrdering Facility: [facility] Address: [address] [place] [address] Performed By: #### 2 4323-8 ####[facility] LABORATORYCLIA [id number] [address] STATES OF [facility] Protein [Mass/Vol] 7.0 g/dL Normal 6.3-8.0 [facility] Comment on above: Order Comment: Camdeni men Type: BLOOD SPECIMENOrdering Facility: [facility] Address: [address] [place] [address] Performed By: #### 2 4323-8 ####[facility] LABORATORYCLIA [id number] [address] STATES [facility] Sodium [Moles/Vol] 135 mmol/L Low 136-144 [facility] Comment on above: Order Comment: Camdeni men Type: BLOOD SPECIMENOrdering Facility: [facility] Address: [address] [place] [address] Performed By: #### 2 4323-8 ####[facility] LABORATORYCLIA [id number] [place] [address] [place] Urea nitrogen [Mass/Vol] 24 mg/dL Normal 9-24 [facility] Comment on above: Order Comment: Camdeni men Type: BLOOD SPECIMENOrdering Facility: [facility] Address: [address] [place] [address] Performed By: #### 2 4323-8 ####[facility] LABORATORYCLIA [id number] [place] [address] [place] [facility] NURSING PROGon 07-01-2025 NURSING PROG Normal [facility] NURSING PROG Normal [facility] NURSING PROG Normal [facility] PT panel Coag (PPP)on 2024 INR Coag (PPP) [Relative time] 3.7 {INR} High 0.9-1.3 [facility] Comment on above: Order Comment: Zach ortega Type: BLOOD SPECIMENOrdering Facility: [facility] Address: [address] [place] [address] Result Comment: Zina min K Antagonist (VKA) Therapeutic Range: INR 2 to 3 (Target INR of 2.5)Note: For patients treated with VKA drugs, such as warfarin, the [place] [employer] 2012 Guideline recommends a therapeutic INR range of 2 to 3 (target INR of 2.5). This recommendation includes high-risk patients with antiphospholipid syndrome with previous arterial or venous thromboembolism, current-generation mechanical or bioprosthetic aortic heart valve replacement.Note: Patients with mechanical aortic valve replacement and additional risk factors for thromboembolic events (atrial fibrillation, previous thromboembolism, LV dysfunction, hypercoagulable conditions) or an older generation mechanical AVR (i.e., ball in-Cage) or any mechanical MVR should have a INR therapeutic range of 2.5 to 3.5 (target INR of 3).Karon GH, et al. Chest 2012, 141:7S-47SChino RA, et al. [facility] 2017, 70: 252-289 Performed By: #### 3 4528-0 ####[facility] LABORATORYCLIA [id number] [address] STATES OF [facility] PT Coag (PPP) [Time] 36.2 s High 9.7-13.0 [facility] Comment on above: Order Comment: Zach ortega Type: BLOOD SPECIMENOrdering Facility: [facility] Address: [address] [place] [address] Performed By: #### 3 4528-0 ####[facility] LABORATORYCLIA [id number] [address] [place] CASE MANAGEMon 06-30-2025 CASE MANAGEM Normal [facility] CBC W Auto Differential pane l (Bld)on 06-30-2025 Basophils (Bld) [#/Vol] 0.13 10*3/uL High <0.11 [facility] Comment on above: Order Comment: Speci men Type: BLOOD SPECIMENOrdering Facility: [facility] Address: [address] [place] [address] Performed By: #### 5 7021-8 ####[facility] [facility]ORATORYCLIA [id number] [place] [address] [place] Basophils/100 WBC (Bld) 1.2 % Normal [facility] Comment on above: Order Comment: Speci men Type: BLOOD SPECIMENOrdering Facility: [facility] Address: [address] [place] [address] Performed By: #### 5 7021-8 ####[facility] LABORATORYCLIA [id number] [place] [address] [place] Differential cell count method Nom (Bld) Auto Normal [facility] Comment on above: Order Comment: Speci men Type: BLOOD SPECIMENOrdering Facility: [facility] Address: [address] [place] [address] Performed By: #### 5 7021-8 ####[facility]ORATORYCLIA [id number] [place] [address] [place] Eosinophils (Bld) [#/Vol] 0.69 10*3/uL High <0.46 [facility] Comment on above: Order Comment: Speci men Type: BLOOD SPECIMENOrdering Facility: [facility] Address: [address] [place] [address] Performed By: #### 5 7021-8 ####[facility]ATORYCLIA [id number] [address] [place] Eosinophils/100 WBC (Bld) 6.5 % Normal [facility] Comment on above: Order Comment: Speci men Type: BLOOD SPECIMENOrdering Facility: [facility] Address: [address] [place] [address] Performed By: #### 5 7021-8 ####[facility]ORATORYCLIA [id number] [address] [place] Erythrocyte distribution width (RBC) [Ratio] 17.7 % High 11.5-15.0 [facility] Comment on above: Order Comment: Speci men Type: BLOOD SPECIMENOrdering Facility: [facility] Address: [address] [place] [address] Performed By: #### 5 7021-8 ####[facility] LABORATORYCLIA [id number] [address] [place] Hematocrit (Bld) [Volume fraction] 35.5 % Low 39.0-51.0 [facility] Comment on above: Order Comment: Speci men Type: BLOOD SPECIMENOrdering Facility: [facility] Address: [address] [place] [address] Performed By: #### 5 7021-8 ####[facility] LABORATORYCLIA [id number] [address] [place] Hemoglobin (Bld) [Mass/Vol] 10.5 g/dL Low 13.0-17.0 [facility] Comment on above: Order Comment: Speci men Type: BLOOD SPECIMENOrdering Facility: [facility] Address: [address] [place] [address] Performed By: #### 5 7021-8 ####[facility]ORATORYCLIA [id number] [address] [place] Immature granulocytes (Bld) [#/Vol] 0.04 10*3/uL Normal <0.10 [facility] Comment on above: Order Comment: Speci men Type: BLOOD SPECIMENOrdering Facility: [facility] Address: [address] [place] [address] Performed By: #### 5 7021-8 ####[facility] LABORATORYCLIA [id number] [address] Immature granulocytes/100 WBC (Bld) 0.4 % Normal [facility] Comment on above: Order Comment: Speci men Type: BLOOD SPECIMENOrdering Facility: [facility] Address: [address] [place] [address] Performed By: #### 5 7021-8 ####[facility] LABORATORYCLIA [id number] [address] [place] Lymphocytes (Bld) [#/Vol] 2.04 10*3/uL Normal 1.00-4.00 [facility] Comment on above: Order Comment: Speci men Type: BLOOD SPECIMENOrdering Facility: [facility] Address: [address] [place] [address] Performed By: #### 5 7021-8 ####[facility] LABORATORYCLIA [id number] [address] Lymphocytes/100 WBC (Bld) 19.3 % Normal [facility] Comment on above: Order Comment: Speci men Type: BLOOD SPECIMENOrdering Facility: [facility] Address: [address] [place] [address] Performed By: #### 5 7021-8 ####[facility] LABORATORYCLIA [id number] [address] STATES OF [facility] MCH (RBC) [Entitic mass] 29.7 pg Normal 26.0-34.0 [facility] Comment on above: Order Comment: Speci men Type: BLOOD SPECIMENOrdering Facility: [facility] Address: [address] [place] [address] Performed By: #### 5 7021-8 ####[facility] LABORATORYCLIA [id number] [address] [place] MCHC (RBC) [Mass/Vol] 29.6 g/dL Low 30.5-36.0 [facility] Comment on above: Order Comment: Speci men Type: BLOOD SPECIMENOrdering Facility: [facility] Address: [address] [place] [address] Performed By: #### 5 7021-8 ####[facility] LABORATORYCLIA [id number] [address] [place] MCV (RBC) [Entitic vol] 100.3 fL High 80.0-100.0 [facility] Comment on above: Order Comment: Speci men Type: BLOOD SPECIMENOrdering Facility: [facility] Address: [address] [place] [address] Performed By: #### 5 7021-8 ####[facility] GENER[facility] LABORATORYCLIA [id number] [address] [place] Monocytes (Bld) [#/Vol] 1.03 10*3/uL High <0.87 [facility] Comment on above: Order Comment: Speci men Type: BLOOD SPECIMENOrdering Facility: [facility] Address: [address] [place] [address] Performed By: #### 5 7021-8 ####[facility] LABORATORYCLIA [id number] [address] Monocytes/100 WBC (Bld) 9.8 % Normal [facility] Comment on above: Order Comment: Speci men Type: BLOOD SPECIMENOrdering Facility: [facility] Address: [address] [place] [address] Performed By: #### 5 7021-8 ####[facility] LABORATORYCLIA [id number] [address] [place] Neutrophils (Bld) [#/Vol] 6.62 10*3/uL Normal 1.45-7.50 [facility] Comment on above: Order Comment: Speci men Type: BLOOD SPECIMENOrdering Facility: [facility] Address: [address] [place] [address] Performed By: #### 5 7021-8 ####[facility]ATORYCLIA [id number] [address] [place] Neutrophils/100 WBC (Bld) 62.8 % Normal [facility] Comment on above: Order Comment: Speci men Type: BLOOD SPECIMENOrdering Facility: [facility] Address: [address] [place] [address] Performed By: #### 5 7021-8 ####[facility]ATORYCLIA [id number] [address] [place] Nucleated RBC (Bld) [#/Vol] 10*3/uL Normal <0.01 [facility] Comment on above: Order Comment: Speci men Type: BLOOD SPECIMENOrdering Facility: [facility] Address: [address] [place] [address] Performed By: #### 5 7021-8 ####[facility] LABORATORYCLIA [id number] [address] [place] Nucleated RBC/100 WBC (Bld) [Ratio] 0.0 /100 WBC Normal [facility] Comment on above: Order Comment: Speci men Type: BLOOD SPECIMENOrdering Facility: [facility] Address: [address] [place] [address] Performed By: #### 5 7021-8 ####[facility] LABORATORYCLIA [id number] [address] [place] Platelet mean volume (Bld) [Entitic vol] 9.7 fL Normal 9.0-12.7 [facility] Comment on above: Order Comment: Speci men Type: BLOOD SPECIMENOrdering Facility: [facility] Address: [address] [place] [address] Performed By: #### 5 7021-8 ####[facility] LABORATORYCLIA [id number] [address] [place] Platelets (Bld) [#/Vol] 240 10*3/uL Normal 150-400 [facility] Comment on above: Order Comment: Speci men Type: BLOOD SPECIMENOrdering Facility: [facility] Address: [address] [place] [address] Performed By: #### 5 7021-8 ####[facility] LABORATORYCLIA [id number] [place] [address] [place] RBC (Bld) [#/Vol] 3.54 10*6/uL Low 4.20-6.00 [facility] Comment on above: Order Comment: Speci men Type: BLOOD SPECIMENOrdering Facility: [facility] Address: [address] [place] [address] Performed By: #### 5 7021-8 ####[facility] LABORATORYCLIA [id number] [address] [place] WBC (Bld) [#/Vol] 10.55 10*3/uL Normal 3.70-11.00 [facility] Comment on above: Order Comment: Speci men Type: BLOOD SPECIMENOrdering Facility: [facility] Address: [address] [place] [address] Performed By: #### 5 7021-8 ####[facility] LABORATORYCLIA [id number] [address] CONSULT PROGon 06-30-2025 CONSULT PROG Normal [facility] CONSULT PROG Normal [facility] Comprehensive metabolic 2000 panelon 06-30-2025 Albumin [Mass/Vol] 3.1 g/dL Low 3.9-4.9 [facility] Comment on above: Order Comment: Speci men Type: BLOOD SPECIMENOrdering Facility: [facility] Address: [address] [place] [address] Performed By: #### 2 4323-8 ####[facility] LABORATORYCLIA [id number] [address] ALP [Catalytic activity/Vol] 488 U/L High 38-113 [facility] Comment on above: Order Comment: Speci men Type: BLOOD SPECIMENOrdering Facility: [facility] Address: [address] [place] [address] Performed By: #### 2 4323-8 ####[facility] LABORATORYCLIA [id number] [address] [place] ALT With P-5'-P [Catalytic activity/Vol] 14 U/L Normal 10-54 [facility] Comment on above: Order Comment: Speci men Type: BLOOD SPECIMENOrdering Facility: [facility] Address: [address] [place] [address] Performed By: #### 2 4323-8 ####[facility] LABORATORYCLIA [id number] [address] STATES [facility] Anion gap [Moles/Vol] 18 mmol/L High 8-15 [facility] Comment on above: Order Comment: Speci men Type: BLOOD SPECIMENOrdering Facility: [facility] Address: [address] [place] [address] Performed By: #### 2 4323-8 ####[facility]ORATORYCLIA [id number] [place] [address] [place] AST With P-5'-P [Catalytic activity/Vol] 32 U/L Normal 14-40 [facility] Comment on above: Order Comment: Speci men Type: BLOOD SPECIMENOrdering Facility: [facility] Address: [address] [place] [address] Performed By: #### 2 4323-8 ####[facility] LABORATORYCLIA [id number] [address] [place] Bilirubin [Mass/Vol] 0.7 mg/dL Normal 0.2-1.3 [facility] Comment on above: Order Comment: Speci men Type: BLOOD SPECIMENOrdering Facility: [facility] Address: [address] [place] [address] Performed By: #### 2 4323-8 ####[facility] LABORATORYCLIA [id number] [address] STATES OF [facility] Calcium [Mass/Vol] 9.0 mg/dL Normal 8.5-10.2 [facility] Comment on above: Order Comment: Speci men Type: BLOOD SPECIMENOrdering Facility: [facility] Address: [address] [place] [address] Performed By: #### 2 4323-8 ####[facility]ORATORYCLIA [id number] [place] [address] [place] Chloride [Moles/Vol] 94 mmol/L Low 98-107 [facility] Comment on above: Order Comment: Speci men Type: BLOOD SPECIMENOrdering Facility: [facility] Address: [address] [place] [address] Performed By: #### 2 4323-8 ####[facility]ORATORYCLIA [id number] [place] [address] [place] CO2 [Moles/Vol] 23 mmol/L Normal 22-30 [facility] Comment on above: Order Comment: Speci men Type: BLOOD SPECIMENOrdering Facility: [facility] Address: [address] [place] [address] Performed By: #### 2 4323-8 ####[facility] CARMELCLIA [id number] [place] [address] [place] Creatinine [Mass/Vol] 7.79 mg/dL High 0.73-1.22 [facility] Comment on above: Order Comment: Speci men Type: BLOOD SPECIMENOrdering Facility: [facility] Address: [address] [place] [address] Performed By: #### 2 4323-8 ####[facility] CARMELCLIA [id number] [address] eGFRcr SerPlBld CKD-EPI 2020 7 mL/min/1.73m??? Low >=60 [facility] Comment on above: Order Comment: Speci men Type: BLOOD SPECIMENOrdering Facility: [facility] Address: [address] [place] [address] Result Comment: Faviola mated Glomerular Filtration Rate (eGFR) is calculated using the 2020 CKD-EPI creatinine equation. This equation utilizes serum creatinine, sex, and age as parameters. The creatinine assay has traceable calibration to isotope dilution-mass spectrometry. Refer to KDIGO guidelines for clinical interpretation. In patients with unstable renal function, e.g. those with acute kidney injury, the eGFR may not accurately reflect actual GFR. Performed By: #### 2 4323-8 ####[facility] LABORATORYCLIA [id number] [address] STATES OF [facility] Glucose [Mass/Vol] 91 mg/dL Normal 74-99 [facility] Comment on above: Order Comment: Speci men Type: BLOOD SPECIMENOrdering Facility: [facility] Address: [address] [place] [address] Result Comment: The [place] [employer] (ADA) provides guidance for cutoff values for fasting glucose and random glucose. The ADA defines fasting as no caloric intake for at least 8 hours. Fasting plasma glucose results between 100 to 125 mg/dL indicate increased risk for diabetes (prediabetes).Fasting plasma glucose results greater than or equal to 126 mg/dL meet the criteria for diagnosis of diabetes. In the absence of unequivocal hyperglycemia, results should be confirmed by repeat testing. In a patient with classic symptoms of hyperglycemia or hyperglycemic crisis, random plasma glucose results greater than or equal to 200 mg/dL meet the criteria for diagnosis of diabetes.Reference: Standards of Medical Care in Diabetes 2016, [place] [employer]. Diabetes Care. 2016.39(Suppl 1). Performed By: #### 2 4323-8 ####[facility]ORATORYCLIA [id number] [place] [address] [place] Potassium [Moles/Vol] 5.6 mmol/L High 3.7-5.1 [facility] Comment on above: Order Comment: Zach ortega Type: BLOOD SPECIMENOrdering Facility: [facility] Address: [address] [place] [address] Performed By: #### 2 4323-8 ####[facility] LABORATORYCLIA [id number] [place] [address] [place] Protein [Mass/Vol] 6.9 g/dL Normal 6.3-8.0 [facility] Comment on above: Order Comment: Zach ortega Type: BLOOD SPECIMENOrdering Facility: [facility] Address: [address] [place] [address] Performed By: #### 2 4323-8 ####[facility]ORATORYCLIA [id number] [place] [address] [place] Sodium [Moles/Vol] 135 mmol/L Low 136-144 [facility] Comment on above: Order Comment: Zach ortega Type: BLOOD SPECIMENOrdering Facility: [facility] Address: [address] [place] [address] Performed By: #### 2 4323-8 ####[facility]ORATORYCLIA [id number] [place] [address] [place] Urea nitrogen [Mass/Vol] 53 mg/dL High 9-24 [facility] Comment on above: Order Comment: Zach ortega Type: BLOOD SPECIMENOrdering Facility: [facility] Address: [address] [place] [address] Performed By: #### 2 4323-8 ####[facility] LABORATORYCLIA [id number] [address] [place] NURSING PROGon 06-30-2025 NURSING PROG Normal [facility] NURSING PROG Normal [facility] PT panel Coag (PPP)on 2024 INR Coag (PPP) [Relative time] 3.1 {INR} High 0.9-1.3 [facility] Comment on above: Order Comment: Zach ortega Type: BLOOD SPECIMENOrdering Facility: [facility] Address: [address] [place] [address] Result Comment: Zina min K Antagonist (VKA) Therapeutic Range: INR 2 to 3 (Target INR of 2.5)Note: For patients treated with VKA drugs, such as warfarin, the [place] [employer] 2012 Guideline recommends a therapeutic INR range of 2 to 3 (target INR of 2.5). This recommendation includes high-risk patients with antiphospholipid syndrome with previous arterial or venous thromboembolism, current-generation mechanical or bioprosthetic aortic heart valve replacement.Note: Patients with mechanical aortic valve replacement and additional risk factors for thromboembolic events (atrial fibrillation, previous thromboembolism, LV dysfunction, hypercoagulable conditions) or an older generation mechanical AVR (i.e., ball in-Cage) or any mechanical MVR should have a INR therapeutic range of 2.5 to 3.5 (target INR of 3).Karon NAPOLES, et al. Chest 2012, 141:7S-47SChino RA, et al. [facility] 2017, 70: 252-289 Performed By: #### 3 4528-0 ####[facility] LABORATORYCLIA [id number] [address] [place] PT Coag (PPP) [Time] 31.2 s High 9.7-13.0 [facility] Comment on above: Order Comment: Zach ortega Type: BLOOD SPECIMENOrdering Facility: [facility] Address: [address] [place] [address] Performed By: #### 3 4528-0 ####[facility] LABORATORYCLIA [id number] [place] [address] [place] ANES PRE-OPon 06-29-2025 ANES PRE-OP Normal [facility] CASE MANAGEMon 06-29-2025 CASE MANAGEM Normal [facility] CBC W Auto Differential pane l (Bld)on 06-29-2025 Basophils (Bld) [#/Vol] 0.07 10*3/uL Normal <0.11 [facility] Comment on above: Order Comment: Speci men Type: BLOOD SPECIMENOrdering Facility: [facility] Address: [address] [place] [address] Performed By: #### 5 7021-8 ####[facility]ORATORYCLIA [id number] [place] [address] [place] Basophils/100 WBC (Bld) 0.7 % Normal [facility] Comment on above: Order Comment: Speci men Type: BLOOD SPECIMENOrdering Facility: [facility] Address: [address] [place] [address] Performed By: #### 5 7021-8 ####[facility]ORATORYCLIA [id number] [place] [address] [place] Differential cell count method Nom (Bld) Auto Normal [facility] Comment on above: Order Comment: Speci men Type: BLOOD SPECIMENOrdering Facility: [facility] Address: [address] [place] [address] Performed By: #### 5 7021-8 ####[facility]ORATORYCLIA [id number] [place] [address] [place] Eosinophils (Bld) [#/Vol] 0.93 10*3/uL High <0.46 [facility] Comment on above: Order Comment: Speci men Type: BLOOD SPECIMENOrdering Facility: [facility] Address: [address] [place] [address] Performed By: #### 5 7021-8 ####[facility]ORATORYCLIA [id number] [address] [place] Eosinophils/100 WBC (Bld) 9.2 % Normal [facility] Comment on above: Order Comment: Speci men Type: BLOOD SPECIMENOrdering Facility: [facility] Address: [address] [place] [address] Performed By: #### 5 7021-8 ####[facility] LABORATORYCLIA [id number] [address] Erythrocyte distribution width (RBC) [Ratio] 18.3 % High 11.5-15.0 [facility] Comment on above: Order Comment: Speci men Type: BLOOD SPECIMENOrdering Facility: [facility] Address: [address] [place] [address] Performed By: #### 5 7021-8 ####[facility] LABORATORYCLIA [id number] [address] Hematocrit (Bld) [Volume fraction] 34.0 % Low 39.0-51.0 [facility] Comment on above: Order Comment: Speci men Type: BLOOD SPECIMENOrdering Facility: [facility] Address: [address] [place] [address] Performed By: #### 5 7021-8 ####[facility]ORATORYCLIA [id number] [address] [place] Hemoglobin (Bld) [Mass/Vol] 10.9 g/dL Low 13.0-17.0 [facility] Comment on above: Order Comment: Speci men Type: BLOOD SPECIMENOrdering Facility: [facility] Address: [address] [place] [address] Performed By: #### 5 7021-8 ####[facility]ORATORYCLIA [id number] [address] Immature granulocytes (Bld) [#/Vol] 0.05 10*3/uL Normal <0.10 [facility] Comment on above: Order Comment: Speci men Type: BLOOD SPECIMENOrdering Facility: [facility] Address: [address] [place] [address] Performed By: #### 5 7021-8 ####[facility]ATORYCLIA [id number] [address] Immature granulocytes/100 WBC (Bld) 0.5 % Normal [facility] Comment on above: Order Comment: Speci men Type: BLOOD SPECIMENOrdering Facility: [facility] Address: [address] [place] [address] Performed By: #### 5 7021-8 ####[facility]ORATORYCLIA [id number] [address] [place] Lymphocytes (Bld) [#/Vol] 2.11 10*3/uL Normal 1.00-4.00 [facility] Comment on above: Order Comment: Speci men Type: BLOOD SPECIMENOrdering Facility: [facility] Address: [address] [place] [address] Performed By: #### 5 7021-8 ####[facility]ORATORYCLIA [id number] [address] Lymphocytes/100 WBC (Bld) 20.9 % Normal [facility] Comment on above: Order Comment: Speci men Type: BLOOD SPECIMENOrdering Facility: [facility] Address: [address] [place] [address] Performed By: #### 5 7021-8 ####[facility]ORATORYCLIA [id number] [address] [place] MCH (RBC) [Entitic mass] 32.2 pg Normal 26.0-34.0 [facility] Comment on above: Order Comment: Speci men Type: BLOOD SPECIMENOrdering Facility: [facility] Address: [address] [place] [address] Performed By: #### 5 7021-8 ####[facility]ORATORYCLIA [id number] [address] [place] MCHC (RBC) [Mass/Vol] 32.1 g/dL Normal 30.5-36.0 [facility] Comment on above: Order Comment: Speci men Type: BLOOD SPECIMENOrdering Facility: [facility] Address: [address] [place] [address] Performed By: #### 5 7021-8 ####[facility]ORATORYCLIA [id number] [address] [place] MCV (RBC) [Entitic vol] 100.3 fL High 80.0-100.0 [facility] Comment on above: Order Comment: Speci men Type: BLOOD SPECIMENOrdering Facility: [facility] Address: [address] [place] [address] Performed By: #### 5 7021-8 ####[facility]ORATORYCLIA [id number] [address] [place] Monocytes (Bld) [#/Vol] 0.75 10*3/uL Normal <0.87 [facility] Comment on above: Order Comment: Speci men Type: BLOOD SPECIMENOrdering Facility: [facility] Address: [address] [place] [address] Performed By: #### 5 7021-8 ####[facility]ORATORYCLIA [id number] [address] Monocytes/100 WBC (Bld) 7.4 % Normal [facility] Comment on above: Order Comment: Speci men Type: BLOOD SPECIMENOrdering Facility: [facility] Address: [address] [place] [address] Performed By: #### 5 7021-8 ####[facility]ORATORYCLIA [id number] [address] [place] Neutrophils (Bld) [#/Vol] 6.20 10*3/uL Normal 1.45-7.50 [facility] Comment on above: Order Comment: Speci men Type: BLOOD SPECIMENOrdering Facility: [facility] Address: [address] [place] [address] Performed By: #### 5 7021-8 ####[facility]ORATORYCLIA [id number] [address] [place] Neutrophils/100 WBC (Bld) 61.3 % Normal [facility] Comment on above: Order Comment: Speci men Type: BLOOD SPECIMENOrdering Facility: [facility] Address: [address] [place] [address] Performed By: #### 5 7021-8 ####[facility]ORATORYCLIA [id number] [address] [place] Nucleated RBC (Bld) [#/Vol] 10*3/uL Normal <0.01 [facility] Comment on above: Order Comment: Speci men Type: BLOOD SPECIMENOrdering Facility: [facility] Address: [address] [place] [address] Performed By: #### 5 7021-8 ####[facility]ORATORYCLIA [id number] [address] Nucleated RBC/100 WBC (Bld) [Ratio] 0.0 /100 WBC Normal [facility] Comment on above: Order Comment: Speci men Type: BLOOD SPECIMENOrdering Facility: [facility] Address: [address] [place] [address] Performed By: #### 5 7021-8 ####[facility]ORATORYCLIA [id number] [address] [place] Platelet mean volume (Bld) [Entitic vol] 10.1 fL Normal 9.0-12.7 [facility] Comment on above: Order Comment: Speci men Type: BLOOD SPECIMENOrdering Facility: [facility] Address: [address] [place] [address] Performed By: #### 5 7021-8 ####[facility]ORATORYCLIA [id number] [place] [address] [place] Platelets (Bld) [#/Vol] 218 10*3/uL Normal 150-400 [facility] Comment on above: Order Comment: Speci men Type: BLOOD SPECIMENOrdering Facility: [facility] Address: [address] [place] [address] Performed By: #### 5 7021-8 ####[facility]ORATORYCLIA [id number] [place] [address] [place] RBC (Bld) [#/Vol] 3.39 10*6/uL Low 4.20-6.00 [facility] Comment on above: Order Comment: Speci men Type: BLOOD SPECIMENOrdering Facility: [facility] Address: [address] [place] [address] Performed By: #### 5 7021-8 ####[facility]ORATORYCLIA [id number] [address] [place] WBC (Bld) [#/Vol] 10.11 10*3/uL Normal 3.70-11.00 [facility] Comment on above: Order Comment: Speci men Type: BLOOD SPECIMENOrdering Facility: [facility] Address: [address] [place] [address] Performed By: #### 5 7021-8 ####[facility]ORATORYCLIA [id number] [address] OF [facility] CONSULT PROGon 06-29-2025 CONSULT PROG Normal [facility] CONSULT PROG Normal [facility] CONSULT PROG Normal [facility] CRP SerPl-mCncon 06-29-2025 CRP [Mass/Vol] 8.3 mg/dL High <0.9 [facility] Comment on above: Order Comment: Speci men Type: BLOOD SPECIMENOrdering Facility: [facility] Address: [address] [place] [address] Performed By: #### 1 988-5, 29460-9 ####[facility]ORATORYCLIA [id number] [address] [place] CT BRAIN WO IVCONon 06-29-[address] BRAIN WO IVCON Normal [facility] Comprehensive metabolic 2000 panelon 06-29-2025 Albumin [Mass/Vol] 2.9 g/dL Low 3.9-4.9 [facility] Comment on above: Order Comment: Speci men Type: BLOOD SPECIMENOrdering Facility: [facility] Address: [address] [place] [address] Performed By: #### 1 988-5, 56249-7 ####[facility]ORATORYCLIA [id number] [place], [place] [address] [place] [address] STATES OF [facility] ALP [Catalytic activity/Vol] 479 U/L High 38-113 [facility] Comment on above: Order Comment: Speci men Type: BLOOD SPECIMENOrdering Facility: [facility] Address: [address] [place] [address] Performed By: #### 1 988-5, ####[facility]ORATORYCLIA [id number] [address] OF [facility] ALT With P-5'-P [Catalytic activity/Vol] 15 U/L Normal 10-54 [facility] Comment on above: Order Comment: Speci men Type: BLOOD SPECIMENOrdering Facility: [facility] Address: [address] [place] [address] Performed By: #### 1 988-5, ####[facility]ORATORYCLIA [id number] [address] Anion gap [Moles/Vol] 15 mmol/L Normal 8-15 [facility] Comment on above: Order Comment: Speci men Type: BLOOD SPECIMENOrdering Facility: [facility] Address: [address] [place] [address] Performed By: #### 1 988-5, ####[facility]ORATORYCLIA [id number] [address] [place] AST With P-5'-P [Catalytic activity/Vol] 36 U/L Normal 14-40 [facility] Comment on above: Order Comment: Speci men Type: BLOOD SPECIMENOrdering Facility: [facility] Address: [address] [place] [address] Performed By: #### 1 988-5, 10917-8 ####[facility]ORATORYCLIA [id number] [address] [place] Bilirubin [Mass/Vol] 0.7 mg/dL Normal 0.2-1.3 [facility] Comment on above: Order Comment: Speci men Type: BLOOD SPECIMENOrdering Facility: [facility] Address: [address] [place] [address] Performed By: #### 1 988-5, ####[facility]ORATORYCLIA [id number] [place] [address] [place] Calcium [Mass/Vol] 9.2 mg/dL Normal 8.5-10.2 [facility] Comment on above: Order Comment: Speci men Type: BLOOD SPECIMENOrdering Facility: [facility] Address: [address] [place] [address] Performed By: #### 1 988-5, ####[facility] LABORATORYCLIA [id number] [place] [address] [place] Chloride [Moles/Vol] 98 mmol/L Normal 98-107 [facility] Comment on above: Order Comment: Speci men Type: BLOOD SPECIMENOrdering Facility: [facility] Address: [address] [place] [address] Performed By: #### 1 988-5, ####[facility]ORATORYCLIA [id number] [place] [address] [place] CO2 [Moles/Vol] 24 mmol/L Normal 22-30 [facility] Comment on above: Order Comment: Speci men Type: BLOOD SPECIMENOrdering Facility: [facility] Address: [address] [place] [address] Performed By: #### 1 988-5, ####[facility] LABORATORYCLIA [id number] [place] [address] [place] Creatinine [Mass/Vol] 6.40 mg/dL High 0.73-1.22 [facility] Comment on above: Order Comment: Speci men Type: BLOOD SPECIMENOrdering Facility: [facility] Address: [address] [place] [address] Performed By: #### 1 988-5, ####[facility] CARMELCLIA [id number] [place] [address] [place] eGFRcr SerPlBld CKD-EPI 2020 8 mL/min/1.73m??? Low >=60 [facility] Comment on above: Order Comment: Zach ortega Type: BLOOD SPECIMENOrdering Facility: [facility] Address: [address] [place] [address] Result Comment: Faviola mated Glomerular Filtration Rate (eGFR) is calculated using the 2020 CKD-EPI creatinine equation. This equation utilizes serum creatinine, sex, and age as parameters. The creatinine assay has traceable calibration to isotope dilution-mass spectrometry. Refer to KDIGO guidelines for clinical interpretation. In patients with unstable renal function, e.g. those with acute kidney injury, the eGFR may not accurately reflect actual GFR. Performed By: #### 1 988-5, 88006-0 ####[facility] [id number] [place] [address] [place] Glucose [Mass/Vol] 98 mg/dL Normal 74-99 [facility] Comment on above: Order Comment: Zach ortega Type: BLOOD SPECIMENOrdering Facility: [facility] Address: [address] [place] [address] Result Comment: The [place] [employer] (ADA) provides guidance for cutoff values for fasting glucose and random glucose. The ADA defines fasting as no caloric intake for at least 8 hours. Fasting plasma glucose results between 100 to 125 mg/dL indicate increased risk for diabetes (prediabetes).Fasting plasma glucose results greater than or equal to 126 mg/dL meet the criteria for diagnosis of diabetes. In the absence of unequivocal hyperglycemia, results should be confirmed by repeat testing. In a patient with classic symptoms of hyperglycemia or hyperglycemic crisis, random plasma glucose results greater than or equal to 200 mg/dL meet the criteria for diagnosis of diabetes.Reference: Standards of Medical Care in Diabetes 2016, [place] [employer]. Diabetes Care. 2016.39(Suppl 1). Performed By: #### 1 988-5, 65494-5 ####[facility] LABORATORYIA [id number] [place] [id number] [place] Potassium [Moles/Vol] 4.7 mmol/L Normal 3.7-5.1 [facility] Comment on above: Order Comment: Speci men Type: BLOOD SPECIMENOrdering Facility: [facility] Address: [address] [place] [address] Performed By: #### 1 988-5, ####[facility] LABORATORYCLIA [id number] [address] [place] Protein [Mass/Vol] 6.8 g/dL Normal 6.3-8.0 [facility] Comment on above: Order Comment: Speci men Type: BLOOD SPECIMENOrdering Facility: [facility] Address: [address] [place] [address] Performed By: #### 1 988-5, 01897-7 ####[facility] LABORATORYCLIA [id number] [address] [place] Sodium [Moles/Vol] 137 mmol/L Normal 136-144 [facility] Comment on above: Order Comment: Speci men Type: BLOOD SPECIMENOrdering Facility: [facility] Address: [address] [place] [address] Performed By: #### 1 988-5, 31797-8 ####[facility] LABORATORYCLIA [id number] [address] [place] Urea nitrogen [Mass/Vol] 39 mg/dL High 9-24 [facility] Comment on above: Order Comment: Speci men Type: BLOOD SPECIMENOrdering Facility: [facility] Address: [address] [place] [address] Performed By: #### 1 988-5, ####[facility] LABORATORYCLIA [id number] [address] OF [facility] OPERATIVE NOon 06-29-2025 OPERATIVE NO Normal [facility] PT panel Coag (PPP)on 2024 INR Coag (PPP) [Relative time] 2.4 {INR} High 0.9-1.3 [facility] Comment on above: Order Comment: Speci men Type: BLOOD SPECIMENOrdering Facility: [facility] Address: [address] [address] Result Comment: Zina min K Antagonist (VKA) Therapeutic Range: INR 2 to 3 (Target INR of 2.5)Note: For patients treated with VKA drugs, such as warfarin, the [employer] 2012 Guideline recommends a therapeutic INR range of 2 to 3 (target INR of 2.5). This recommendation includes high-risk patients with antiphospholipid syndrome with previous arterial or venous thromboembolism, current-generation mechanical or bioprosthetic aortic heart valve replacement.Note: Patients with mechanical aortic valve replacement and additional risk factors for thromboembolic events (atrial fibrillation, previous thromboembolism, LV dysfunction, hypercoagulable conditions) or an older generation mechanical AVR (i.e., ball in-Cage) or any mechanical MVR should have a INR therapeutic range of 2.5 to 3.5 (target INR of 3).Karon GH, et al. Chest 2012, 141:7S-47SNishimmel RA, et al. [facility] 2017, 70: 252-289 Performed By: #### 3 4528-0 ####[facility] LABORATORYCLIA [id number] [place] [address] [place] PT Coag (PPP) [Time] 24.0 s High 9.7-13.0 [facility] Comment on above: Order Comment: Speci men Type: BLOOD SPECIMENOrdering Facility: [facility] Address: [address] [place] [address] Performed By: #### 3 4528-0 ####[facility] LABORATORYCLIA [id number] [address] [place] THERAPY NTon 06-29-2025 THERAPY NT Normal [facility] XR LUMBAR 2V AP/LATon 2024 XR LUMBAR 2V AP/LAT Normal [facility] CBC W Auto Differential pane l (Bld)on 06-28-2025 Basophils (Bld) [#/Vol] 0.06 10*3/uL Normal <0.11 [facility] Comment on above: Order Comment: Speci men Type: BLOOD SPECIMENOrdering Facility: [facility] Address: [address] [place], [place] [address] Performed By: #### 5 7021-8 ####[facility]ORATORYCLIA [id number] [address] Basophils/100 WBC (Bld) 0.6 % Normal [facility] Comment on above: Order Comment: Speci men Type: BLOOD SPECIMENOrdering Facility: [facility] Address: [address] [place] [address] Performed By: #### 5 7021-8 ####[facility]ORATORYCLIA [id number] [address] [place] Differential cell count method Nom (Bld) Auto Normal [facility] Comment on above: Order Comment: Speci men Type: BLOOD SPECIMENOrdering Facility: [facility] Address: [address] [place] [address] Performed By: #### 5 7021-8 ####[facility] LABORATORYCLIA [id number] [address] [place] Eosinophils (Bld) [#/Vol] 0.73 10*3/uL High <0.46 [facility] Comment on above: Order Comment: Speci men Type: BLOOD SPECIMENOrdering Facility: [facility] Address: [address] [place] [address] Performed By: #### 5 7021-8 ####[facility] LABORATORYCLIA [id number] [address] Eosinophils/100 WBC (Bld) 7.6 % Normal [facility] Comment on above: Order Comment: Speci men Type: BLOOD SPECIMENOrdering Facility: [facility] Address: [address] [place] [address] Performed By: #### 5 7021-8 ####[facility]ATORYCLIA [id number] [address] Erythrocyte distribution width (RBC) [Ratio] 18.4 % High 11.5-15.0 [facility] Comment on above: Order Comment: Speci men Type: BLOOD SPECIMENOrdering Facility: [facility] Address: [address] [place] [address] Performed By: #### 5 7021-8 ####[facility] LABORATORYCLIA [id number] [address] [place] Hematocrit (Bld) [Volume fraction] 33.5 % Low 39.0-51.0 [facility] Comment on above: Order Comment: Speci men Type: BLOOD SPECIMENOrdering Facility: [facility] Address: [address] [place] [address] Performed By: #### 5 7021-8 ####[facility]ORATORYCLIA [id number] [address] [place] Hemoglobin (Bld) [Mass/Vol] 10.0 g/dL Low 13.0-17.0 [facility] Comment on above: Order Comment: Speci men Type: BLOOD SPECIMENOrdering Facility: [facility] Address: [address] [place] [address] Performed By: #### 5 7021-8 ####[facility]ORATORYCLIA [id number] [address] [place] Immature granulocytes (Bld) [#/Vol] 0.03 10*3/uL Normal <0.10 [facility] Comment on above: Order Comment: Speci men Type: BLOOD SPECIMENOrdering Facility: [facility] Address: [address] [place] [address] Performed By: #### 5 7021-8 ####[facility]ORATORYCLIA [id number] [address] [place] Immature granulocytes/100 WBC (Bld) 0.3 % Normal [facility] Comment on above: Order Comment: Speci men Type: BLOOD SPECIMENOrdering Facility: [facility] Address: [address] [place] [address] Performed By: #### 5 7021-8 ####[facility]ORATORYCLIA [id number] [address] [place] Lymphocytes (Bld) [#/Vol] 1.44 10*3/uL Normal 1.00-4.00 [facility] Comment on above: Order Comment: Speci men Type: BLOOD SPECIMENOrdering Facility: [facility] Address: [address] [place] [address] Performed By: #### 5 7021-8 ####[facility]ORATORYCLIA [id number] [address] Lymphocytes/100 WBC (Bld) 14.9 % Normal [facility] Comment on above: Order Comment: Speci men Type: BLOOD SPECIMENOrdering Facility: [facility] Address: [address] [place] [address] Performed By: #### 5 7021-8 ####[facility]ORATORYCLIA [id number] [address] STATES OF [facility] MCH (RBC) [Entitic mass] 30.0 pg Normal 26.0-34.0 [facility] Comment on above: Order Comment: Speci men Type: BLOOD SPECIMENOrdering Facility: [facility] Address: [address] [place] [address] Performed By: #### 5 7021-8 ####[facility]ORATORYCLIA [id number] [address] OF [facility] MCHC (RBC) [Mass/Vol] 29.9 g/dL Low 30.5-36.0 [facility] Comment on above: Order Comment: Speci men Type: BLOOD SPECIMENOrdering Facility: [facility] Address: [address] [place] [address] Performed By: #### 5 7021-8 ####[facility] LABORATORYCLIA [id number] [address] [place] MCV (RBC) [Entitic vol] 100.6 fL High 80.0-100.0 [facility] Comment on above: Order Comment: Speci men Type: BLOOD SPECIMENOrdering Facility: [facility] Address: [address] [place] [address] Performed By: #### 5 7021-8 ####[facility]ORATORYCLIA [id number] [address] [place] Monocytes (Bld) [#/Vol] 0.86 10*3/uL Normal <0.87 [facility] Comment on above: Order Comment: Speci men Type: BLOOD SPECIMENOrdering Facility: [facility] Address: [address] [place] [address] Performed By: #### 5 7021-8 ####[facility] LABORATORYCLIA [id number] [place] [address] [place] Monocytes/100 WBC (Bld) 8.9 % Normal [facility] Comment on above: Order Comment: Speci men Type: BLOOD SPECIMENOrdering Facility: [facility] Address: [facility] [place] [address] Performed By: #### 5 7021-8 ####[facility]ORATORYCLIA [id number] [address] [place] Neutrophils (Bld) [#/Vol] 6.53 10*3/uL Normal 1.45-7.50 [facility] Comment on above: Order Comment: Speci men Type: BLOOD SPECIMENOrdering Facility: [facility] Address: [facility] [place] [address] Performed By: #### 5 7021-8 ####[facility]ORATORYCLIA [id number] [address] [place] Neutrophils/100 WBC (Bld) 67.7 % Normal [facility] Comment on above: Order Comment: Speci men Type: BLOOD SPECIMENOrdering Facility: [facility] Address: [address] [place] [address] Performed By: #### 5 7021-8 ####[facility]ORATORYCLIA [id number] [place] [address] [place] Nucleated RBC (Bld) [#/Vol] 10*3/uL Normal <0.01 [facility] Comment on above: Order Comment: Speci men Type: BLOOD SPECIMENOrdering Facility: [facility] Address: [facility] [place] [address] Performed By: #### 5 7021-8 ####[facility]ORATORYCLIA [id number] [address] [place] Nucleated RBC/100 WBC (Bld) [Ratio] 0.0 /100 WBC Normal [facility] Comment on above: Order Comment: Speci men Type: BLOOD SPECIMENOrdering Facility: [facility] Address: [address] [place] [address] Performed By: #### 5 7021-8 ####[facility]ORATORYCLIA [id number] [place] [address] [place] Platelet mean volume (Bld) [Entitic vol] 9.1 fL Normal 9.0-12.7 [facility] Comment on above: Order Comment: Speci men Type: BLOOD SPECIMENOrdering Facility: [facility] Address: [address] [place] [address] Performed By: #### 5 7021-8 ####[facility]ORATORYCLIA [id number] [address] [place] Platelets (Bld) [#/Vol] 209 10*3/uL Normal 150-400 [facility] Comment on above: Order Comment: Speci men Type: BLOOD SPECIMENOrdering Facility: [facility] Address: [address] [place] [address] Performed By: #### 5 7021-8 ####[facility]ORATORYCLIA [id number] [place] [address] [place] RBC (Bld) [#/Vol] 3.33 10*6/uL Low 4.20-6.00 [facility] Comment on above: Order Comment: Speci men Type: BLOOD SPECIMENOrdering Facility: [facility] Address: [address] [place] [address] Performed By: #### 5 7021-8 ####[facility]ORATORYCLIA [id number] [address] [place] WBC (Bld) [#/Vol] 9.65 10*3/uL Normal 3.70-11.00 [facility] Comment on above: Order Comment: Speci men Type: BLOOD SPECIMENOrdering Facility: [facility] Address: [address] [place] [address] Performed By: #### 5 7021-8 ####[facility]ORATORYCLIA [id number] [address] [place] CONSULT PROGon 06-28-2025 CONSULT PROG Normal [facility] CONSULT PROG Normal [facility] Comprehensive metabolic 2000 panelon 06-28-2025 Albumin [Mass/Vol] 2.9 g/dL Low 3.9-4.9 [facility] Comment on above: Order Comment: Speci men Type: BLOOD SPECIMENOrdering Facility: [facility] Address: [address] [place] [address] Performed By: #### 2 4323-8 ####[facility]ORATORYCLIA [id number] [address] [place] ALP [Catalytic activity/Vol] 424 U/L High 38-113 [facility] Comment on above: Order Comment: Speci men Type: BLOOD SPECIMENOrdering Facility: [facility] Address: [address] [place] [address] Performed By: #### 2 4323-8 ####[facility]ORATORYCLIA [id number] [address] [place] ALT With P-5'-P [Catalytic activity/Vol] 12 U/L Normal 10-54 [facility] Comment on above: Order Comment: Speci men Type: BLOOD SPECIMENOrdering Facility: [facility] Address: [address] [place] [address] Performed By: #### 2 4323-8 ####[facility]ORATORYCLIA [id number] [address] [place] Anion gap [Moles/Vol] 13 mmol/L Normal 8-15 [facility] Comment on above: Order Comment: Speci men Type: BLOOD SPECIMENOrdering Facility: [facility] Address: [address] [place] [address] Performed By: #### 2 4323-8 ####[facility]ATORYCLIA [id number] [place] [address] [place] AST With P-5'-P [Catalytic activity/Vol] 30 U/L Normal 14-40 [facility] Comment on above: Order Comment: Speci men Type: BLOOD SPECIMENOrdering Facility: [facility] Address: [address] [place] [address] Performed By: #### 2 4323-8 ####[facility]ORATORYCLIA [id number] [place] [address] [place] Bilirubin [Mass/Vol] 0.7 mg/dL Normal 0.2-1.3 [facility] Comment on above: Order Comment: Speci men Type: BLOOD SPECIMENOrdering Facility: [facility] Address: [address] [place] [address] Performed By: #### 2 4323-8 ####[facility]ATORYCLIA [id number] [address] [place] Calcium [Mass/Vol] 8.8 mg/dL Normal 8.5-10.2 [facility] Comment on above: Order Comment: Speci men Type: BLOOD SPECIMENOrdering Facility: [facility] Address: [address] [place] [address] Performed By: #### 2 4323-8 ####[facility]ORATORYCLIA [id number] [place] [address] [place] Chloride [Moles/Vol] 97 mmol/L Low 98-107 [facility] Comment on above: Order Comment: Speci men Type: BLOOD SPECIMENOrdering Facility: [facility] Address: [address] [place] [address] Performed By: #### 2 4323-8 ####[facility]ORATORYCLIA [id number] [place] [address] [place] CO2 [Moles/Vol] 26 mmol/L Normal 22-30 [facility] Comment on above: Order Comment: Speci men Type: BLOOD SPECIMENOrdering Facility: [facility] Address: [address] [place] [address] Performed By: #### 2 4323-8 ####[facility] CARMELCLIA [id number] [place] [id number] [place] [facility] Creatinine [Mass/Vol] 5.21 mg/dL High 0.73-1.22 [facility] Comment on above: Order Comment: Zach ortega Type: BLOOD SPECIMENOrdering Facility: [facility] Address: [address] [place] [address] Performed By: #### 2 4323-8 ####[facility] CARMELCLIA [id number] [address] OF [facility] eGFRcr SerPlBld CKD-EPI 2020 11 mL/min/1.73m??? Low >=60 [facility] Comment on above: Order Comment: Zach ortega Type: BLOOD SPECIMENOrdering Facility: [facility] Address: [address] [place] [address] Result Comment: Faviola mated Glomerular Filtration Rate (eGFR) is calculated using the 2020 CKD-EPI creatinine equation. This equation utilizes serum creatinine, sex, and age as parameters. The creatinine assay has traceable calibration to isotope dilution-mass spectrometry. Refer to KDIGO guidelines for clinical interpretation. In patients with unstable renal function, e.g. those with acute kidney injury, the eGFR may not accurately reflect actual GFR. Performed By: #### 2 4323-8 ####[facility]ITALIA [id number] [address] [place] Glucose [Mass/Vol] 103 mg/dL High 74-99 [facility] Comment on above: Order Comment: Zach ortega Type: BLOOD SPECIMENOrdering Facility: [facility] Address: [address] [place] [address] Result Comment: The [place] [employer] (ADA) provides guidance for cutoff values for fasting glucose and random glucose. The ADA defines fasting as no caloric intake for at least 8 hours. Fasting plasma glucose results between 100 to 125 mg/dL indicate increased risk for diabetes (prediabetes).Fasting plasma glucose results greater than or equal to 126 mg/dL meet the criteria for diagnosis of diabetes. In the absence of unequivocal hyperglycemia, results should be confirmed by repeat testing. In a patient with classic symptoms of hyperglycemia or hyperglycemic crisis, random plasma glucose results greater than or equal to 200 mg/dL meet the criteria for diagnosis of diabetes.Reference: Standards of Medical Care in Diabetes 2016, [place] [employer]. Diabetes Care. 2016.39(Suppl 1). Performed By: #### 2 4323-8 ####[facility] LABORATORYCLIA [id number] [place] [address] [place] Potassium [Moles/Vol] 4.0 mmol/L Normal 3.7-5.1 [facility] Comment on above: Order Comment: Speci [facility] Type: BLOOD SPECIMENOrdering Facility: [facility] Address: [address] [place] [address] Performed By: #### 2 4323-8 ####[facility]ORATORYCLIA [id number] [place] [address] [place] Protein [Mass/Vol] 6.3 g/dL Normal 6.3-8.0 [facility] Comment on above: Order Comment: Speci [facility] Type: BLOOD SPECIMENOrdering Facility: [facility] Address: [address] [place] [address] Performed By: #### 2 4323-8 ####[facility]ORATORYCLIA [id number] [place] [address] [place] Sodium [Moles/Vol] 136 mmol/L Normal 136-144 [facility] Comment on above: Order Comment: [facility] Type: BLOOD SPECIMENOrdering Facility: [facility] Address: [address] [place] [address] Performed By: #### 2 4323-8 ####[facility]ORATORYCLIA [id number] [place] [address] [place] Urea nitrogen [Mass/Vol] 24 mg/dL Normal 9-24 [facility] Comment on above: Order Comment: [facility] Type: BLOOD SPECIMENOrdering Facility: [facility] Address: [address] [place] [address] Performed By: #### 2 4323-8 ####[facility] LABORATORYCLIA [id number] [place] [address] [place] PT panel Coag (PPP)on 2024 INR Coag (PPP) [Relative time] 2.3 {INR} High 0.9-1.3 [facility] Comment on above: Order Comment: Zach ortega Type: BLOOD SPECIMENOrdering Facility: [facility] Address: [address] [place] [address] Result Comment: Zina min K Antagonist (VKA) Therapeutic Range: INR 2 to 3 (Target INR of 2.5)Note: For patients treated with VKA drugs, such as warfarin, the [place] [employer] 2012 Guideline recommends a therapeutic INR range of 2 to 3 (target INR of 2.5). This recommendation includes high-risk patients with antiphospholipid syndrome with previous arterial or venous thromboembolism, current-generation mechanical or bioprosthetic aortic heart valve replacement.Note: Patients with mechanical aortic valve replacement and additional risk factors for thromboembolic events (atrial fibrillation, previous thromboembolism, LV dysfunction, hypercoagulable conditions) or an older generation mechanical AVR (i.e., ball in-Cage) or any mechanical MVR should have a INR therapeutic range of 2.5 to 3.5 (target INR of 3).Henriettatt GH, et al. Chest 2012, 141:7S-47SNishimura RA, et al. [facility] 2017, 70: 252-289 Performed By: #### 3 4528-0 ####[facility]ORATORYCLIA [id number] [address] [place] PT Coag (PPP) [Time] 23.7 s High 9.7-13.0 [facility] Comment on above: Order Comment: Spectrent ortega Type: BLOOD SPECIMENOrdering Facility: [facility] Address: [address] [place] [address] Performed By: #### 3 4528-0 ####[facility]ORATORYCLIA [id number] [address] [place] Bacteria Bld Culton 06-27-20 25 Bacteria identified Cx Nom (Bld) CULTURE, BLOOD: No growth 5 days Normal [facility] Comment on above: Performed By: #### 6 - ####[facility]ATORYCLIA [id number] [address] Bacteria identified Cx Nom (Bld) CULTURE, BLOOD: No growth 5 days Normal [facility] Comment on above: Performed By: #### 6 -7 ####[facility]ATORYCLIA [id number] [address] [place] CBC W Auto Differential pane l (Bld)on 06-27-2025 Basophils (Bld) [#/Vol] 0.07 10*3/uL Normal <0.11 [facility] Comment on above: Order Comment: Speci men Type: BLOOD SPECIMENOrdering Facility: [facility] Address: [address] [place] [address] Performed By: #### 5 7021-8 ####[facility]ORATORYCLIA [id number] [address] [place] Basophils/100 WBC (Bld) 0.6 % Normal [facility] Comment on above: Order Comment: Speci men Type: BLOOD SPECIMENOrdering Facility: [facility] Address: [address] [place] [address] Performed By: #### 5 7021-8 ####[facility]ORATORYCLIA [id number] [address] Differential cell count method Nom (Bld) Auto Normal [facility] Comment on above: Order Comment: Speci men Type: BLOOD SPECIMENOrdering Facility: [facility] Address: [address] [place] [address] Performed By: #### 5 7021-8 ####[facility]ATORYCLIA [id number] [address] [place] Eosinophils (Bld) [#/Vol] 0.29 10*3/uL Normal <0.46 [facility] Comment on above: Order Comment: Speci men Type: BLOOD SPECIMENOrdering Facility: [facility] Address: [address] [place] [address] Performed By: #### 5 7021-8 ####[facility]ATORYCLIA [id number] [address] [place] Eosinophils/100 WBC (Bld) 2.5 % Normal [facility] Comment on above: Order Comment: Speci men Type: BLOOD SPECIMENOrdering Facility: [facility] Address: [address] [place] [address] Performed By: #### 5 7021-8 ####[facility]ORATORYCLIA [id number] [address] Erythrocyte distribution width (RBC) [Ratio] 18.6 % High 11.5-15.0 [facility] Comment on above: Order Comment: Speci men Type: BLOOD SPECIMENOrdering Facility: [facility] Address: [address] [place] [address] Performed By: #### 5 7021-8 ####[facility] LABORATORYCLIA [id number] [address] Hematocrit (Bld) [Volume fraction] 34.0 % Low 39.0-51.0 [facility] Comment on above: Order Comment: Speci men Type: BLOOD SPECIMENOrdering Facility: [facility] Address: [address] [place] [address] Performed By: #### 5 7021-8 ####[facility] LABORATORYCLIA [id number] [address] [place] Hemoglobin (Bld) [Mass/Vol] 10.3 g/dL Low 13.0-17.0 [facility] Comment on above: Order Comment: Speci men Type: BLOOD SPECIMENOrdering Facility: [facility] Address: [address] [place] [address] Performed By: #### 5 7021-8 ####[facility] LABORATORYCLIA [id number] [address] Immature granulocytes (Bld) [#/Vol] 0.05 10*3/uL Normal <0.10 [facility] Comment on above: Order Comment: Speci men Type: BLOOD SPECIMENOrdering Facility: [facility] Address: [address] [place] [address] Performed By: #### 5 7021-8 ####[facility]ORATORYCLIA [id number] [address] [place] Immature granulocytes/100 WBC (Bld) 0.4 % Normal [facility] Comment on above: Order Comment: Speci men Type: BLOOD SPECIMENOrdering Facility: [facility] Address: [address] [place] [address] Performed By: #### 5 7021-8 ####[facility] LABORATORYCLIA [id number] [place] [address] [place] Lymphocytes (Bld) [#/Vol] 1.17 10*3/uL Normal 1.00-4.00 [facility] Comment on above: Order Comment: Speci men Type: BLOOD SPECIMENOrdering Facility: [facility] Address: [address] [place] [address] Performed By: #### 5 7021-8 ####[facility] LABORATORYCLIA [id number] [address] Lymphocytes/100 WBC (Bld) 10.2 % Normal [facility] Comment on above: Order Comment: Speci men Type: BLOOD SPECIMENOrdering Facility: [facility] Address: [address] [place] [address] Performed By: #### 5 7021-8 ####[facility] LABORATORYCLIA [id number] [address] [place] MCH (RBC) [Entitic mass] 31.1 pg Normal 26.0-34.0 [facility] Comment on above: Order Comment: Speci men Type: BLOOD SPECIMENOrdering Facility: [facility] Address: [address] [place] [address] Performed By: #### 5 7021-8 ####[facility] LABORATORYCLIA [id number] [address] [place] MCHC (RBC) [Mass/Vol] 30.3 g/dL Low 30.5-36.0 [facility] Comment on above: Order Comment: Speci men Type: BLOOD SPECIMENOrdering Facility: [facility] Address: [address] [place] [address] Performed By: #### 5 7021-8 ####[facility] LABORATORYCLIA [id number] [address] [place] MCV (RBC) [Entitic vol] 102.7 fL High 80.0-100.0 [facility] Comment on above: Order Comment: Speci men Type: BLOOD SPECIMENOrdering Facility: [facility] Address: [address] [place] [address] Performed By: #### 5 7021-8 ####[facility] LABORATORYCLIA [id number] [place] [address] [place] Monocytes (Bld) [#/Vol] 0.96 10*3/uL High <0.87 [facility] Comment on above: Order Comment: Speci men Type: BLOOD SPECIMENOrdering Facility: [facility] Address: [address] [place] [address] Performed By: #### 5 7021-8 ####[facility] LABORATORYCLIA [id number] [address] [place] Monocytes/100 WBC (Bld) 8.4 % Normal [facility] Comment on above: Order Comment: Speci men Type: BLOOD SPECIMENOrdering Facility: [facility] Address: [address] [place] [address] Performed By: #### 5 7021-8 ####[facility] LABORATORYCLIA [id number] [address] [place] Neutrophils (Bld) [#/Vol] 8.89 10*3/uL High 1.45-7.50 [facility] Comment on above: Order Comment: Speci men Type: BLOOD SPECIMENOrdering Facility: [facility] Address: [address] [place] [address] Performed By: #### 5 7021-8 ####[facility] LABORATORYCLIA [id number] [address] [place] Neutrophils/100 WBC (Bld) 77.9 % Normal [facility] Comment on above: Order Comment: Speci men Type: BLOOD SPECIMENOrdering Facility: [facility] Address: [address] [place] [address] Performed By: #### 5 7021-8 ####[facility]ORATORYCLIA [id number] [address] [place] Nucleated RBC (Bld) [#/Vol] 10*3/uL Normal <0.01 [facility] Comment on above: Order Comment: Speci men Type: BLOOD SPECIMENOrdering Facility: [facility] Address: [address] [place] [address] Performed By: #### 5 7021-8 ####[facility] LABORATORYCLIA [id number] [address] Nucleated RBC/100 WBC (Bld) [Ratio] 0.0 /100 WBC Normal [facility] Comment on above: Order Comment: Speci men Type: BLOOD SPECIMENOrdering Facility: [facility] Address: [address] [place] [address] Performed By: #### 5 7021-8 ####[facility]ORATORYCLIA [id number] [address] [place] Platelet mean volume (Bld) [Entitic vol] 9.7 fL Normal 9.0-12.7 [facility] Comment on above: Order Comment: Speci men Type: BLOOD SPECIMENOrdering Facility: [facility] Address: [address] [place] [address] Performed By: #### 5 7021-8 ####[facility] LABORATORYCLIA [id number] [place] [address] [place] Platelets (Bld) [#/Vol] 207 10*3/uL Normal 150-400 [facility] Comment on above: Order Comment: Speci men Type: BLOOD SPECIMENOrdering Facility: [facility] Address: [address] [place] [address] Performed By: #### 5 7021-8 ####[facility]ORATORYCLIA [id number] [place] [address] [place] RBC (Bld) [#/Vol] 3.31 10*6/uL Low 4.20-6.00 [facility] Comment on above: Order Comment: Speci men Type: BLOOD SPECIMENOrdering Facility: [facility] Address: [address] [place] [address] Performed By: #### 5 7021-8 ####[facility] LABORATORYCLIA [id number] [address] OF [facility] WBC (Bld) [#/Vol] 11.43 10*3/uL High 3.70-11.00 [facility] Comment on above: Order Comment: Speci men Type: BLOOD SPECIMENOrdering Facility: [facility] Address: [address] [place] [address] Performed By: #### 5 7021-8 ####[facility]ORATORYCLIA [id number] [address] CONSULT PROGon 06-27-2025 CONSULT PROG Normal [facility] CONSULT PROG Normal [facility] Comprehensive metabolic 2000 panelon 06-27-2025 Albumin [Mass/Vol] 3.1 g/dL Low 3.9-4.9 [facility] Comment on above: Order Comment: Speci men Type: BLOOD SPECIMENOrdering Facility: [facility] Address: [address] [place] [address] Performed By: #### 2 4323-8 ####[facility]ORATORYCLIA [id number] [address] [place] ALP [Catalytic activity/Vol] 481 U/L High 38-113 [facility] Comment on above: Order Comment: Speci men Type: BLOOD SPECIMENOrdering Facility: [facility] Address: [address] [place] [address] Performed By: #### 2 4323-8 ####[facility]ORATORYCLIA [id number] [address] ALT With P-5'-P [Catalytic activity/Vol] 13 U/L Normal 10-54 [facility] Comment on above: Order Comment: Speci men Type: BLOOD SPECIMENOrdering Facility: [facility] Address: [address] [place] [address] Performed By: #### 2 4323-8 ####[facility]ORATORYCLIA [id number] [place] [address] [place] Anion gap [Moles/Vol] 15 mmol/L Normal 8-15 [facility] Comment on above: Order Comment: Speci men Type: BLOOD SPECIMENOrdering Facility: [facility] Address: [address] [place] [address] Performed By: #### 2 4323-8 ####[facility] LABORATORYCLIA [id number] [place] [address] [place] AST With P-5'-P [Catalytic activity/Vol] 33 U/L Normal 14-40 [facility] Comment on above: Order Comment: Speci men Type: BLOOD SPECIMENOrdering Facility: [facility] Address: [address] [place] [address] Performed By: #### 2 4323-8 ####[facility] LABORATORYCLIA [id number] [place] [address] [place] Bilirubin [Mass/Vol] 0.8 mg/dL Normal 0.2-1.3 [facility] Comment on above: Order Comment: Speci men Type: BLOOD SPECIMENOrdering Facility: [facility] Address: [address] [place] [address] Performed By: #### 2 4323-8 ####[facility]ORATORYCLIA [id number] [place] [address] [place] Calcium [Mass/Vol] 9.0 mg/dL Normal 8.5-10.2 [facility] Comment on above: Order Comment: Speci men Type: BLOOD SPECIMENOrdering Facility: [facility] Address: [address] [place] [address] Performed By: #### 2 4323-8 ####[facility]ORATORYCLIA [id number] [place] [address] [place] [facility] Chloride [Moles/Vol] 97 mmol/L Low 98-107 [facility] Comment on above: Order Comment: Speci men Type: BLOOD SPECIMENOrdering Facility: [facility] Address: [address] [place] [address] Performed By: #### 2 4323-8 ####[facility]ORATORYCLIA [id number] [address] [place] CO2 [Moles/Vol] 24 mmol/L Normal 22-30 [facility] Comment on above: Order Comment: Speci men Type: BLOOD SPECIMENOrdering Facility: [facility] Address: [address] [place] [address] Performed By: #### 2 4323-8 ####[facility] CARMELCLIA [id number] [address] STATES OF [facility] Creatinine [Mass/Vol] 3.65 mg/dL High 0.73-1.22 [facility] Comment on above: Order Comment: Speci men Type: BLOOD SPECIMENOrdering Facility: [facility] Address: [address] [place] [address] Performed By: #### 2 4323-8 ####[facility] LABORATORYCLIA [id number] [address] [place] eGFRcr SerPlBld CKD-EPI 2020 16 mL/min/1.73m??? Low >=60 [facility] Comment on above: Order Comment: Speci men Type: BLOOD SPECIMENOrdering Facility: [facility] Address: [address] [place] [address] Result Comment: Faviola mated Glomerular Filtration Rate (eGFR) is calculated using the 2020 CKD-EPI creatinine equation. This equation utilizes serum creatinine, sex, and age as parameters. The creatinine assay has traceable calibration to isotope dilution-mass spectrometry. Refer to KDIGO guidelines for clinical interpretation. In patients with unstable renal function, e.g. those with acute kidney injury, the eGFR may not accurately reflect actual GFR. Performed By: #### 2 4323-8 ####[facility]ORATORYCLIA [id number] [place] [address] [place] Glucose [Mass/Vol] 99 mg/dL Normal 74-99 [facility] Comment on above: Order Comment: Zach ortega Type: BLOOD SPECIMENOrdering Facility: [facility] Address: [address] [place] [address] Result Comment: The [place] [employer] (ADA) provides guidance for cutoff values for fasting glucose and random glucose. The ADA defines fasting as no caloric intake for at least 8 hours. Fasting plasma glucose results between 100 to 125 mg/dL indicate increased risk for diabetes (prediabetes).Fasting plasma glucose results greater than or equal to 126 mg/dL meet the criteria for diagnosis of diabetes. In the absence of unequivocal hyperglycemia, results should be confirmed by repeat testing. In a patient with classic symptoms of hyperglycemia or hyperglycemic crisis, random plasma glucose results greater than or equal to 200 mg/dL meet the criteria for diagnosis of diabetes.Reference: Standards of Medical Care in Diabetes 2016, [place] [employer]. Diabetes Care. 2016.39(Suppl 1). Performed By: #### 2 4323-8 ####[facility]ORATORYCLIA [id number] [place] [address] [place] Potassium [Moles/Vol] 3.8 mmol/L Normal 3.7-5.1 [facility] Comment on above: Order Comment: Zach ortega Type: BLOOD SPECIMENOrdering Facility: [facility] Address: [address] [place] [address] Performed By: #### 2 4323-8 ####[facility]ORATORYCLIA [id number] [place] [address] [place] Protein [Mass/Vol] 7.0 g/dL Normal 6.3-8.0 [facility] Comment on above: Order Comment: Camdeni men Type: BLOOD SPECIMENOrdering Facility: [facility] Address: [address] [place] [address] Performed By: #### 2 4323-8 ####[facility] LABORATORYCLIA [id number] [place] [address] [place] Sodium [Moles/Vol] 136 mmol/L Normal 136-144 [facility] Comment on above: Order Comment: Spectrent ortega Type: BLOOD SPECIMENOrdering Facility: [facility] Address: [address] [place] [address] Performed By: #### 2 4323-8 ####[facility]ORATORYCLIA [id number] [address] Urea nitrogen [Mass/Vol] 14 mg/dL Normal 9-24 [facility] Comment on above: Order Comment: Speci men Type: BLOOD SPECIMENOrdering Facility: [facility] Address: [address] [place] [address] Performed By: #### 2 4323-8 ####[facility] LABORATORYCLIA [id number] [address] PT panel Coag (PPP)on 2024 INR Coag (PPP) [Relative time] 2.2 {INR} High 0.9-1.3 [facility] Comment on above: Order Comment: Speci jordan Type: BLOOD SPECIMENOrdering Facility: [facility] Address: [address] [place] [address] Result Comment: Zina min K Antagonist (VKA) Therapeutic Range: INR 2 to 3 (Target INR of 2.5)Note: For patients treated with VKA drugs, such as warfarin, the [place] [employer] 2012 Guideline recommends a therapeutic INR range of 2 to 3 (target INR of 2.5). This recommendation includes high-risk patients with antiphospholipid syndrome with previous arterial or venous thromboembolism, current-generation mechanical or bioprosthetic aortic heart valve replacement.Note: Patients with mechanical aortic valve replacement and additional risk factors for thromboembolic events (atrial fibrillation, previous thromboembolism, LV dysfunction, hypercoagulable conditions) or an older generation mechanical AVR (i.e., ball in-Cage) or any mechanical MVR should have a INR therapeutic range of 2.5 to 3.5 (target INR of 3).Karon NAPOLES, et al. Chest 2012, 141:7S-47SChino ELIZABETH, et al. [facility] 2017, 70: 252-289 Performed By: #### 3 4528-0 ####[facility] LABORATORYCLIA [id number] [place] [id number] [place] PT Coag (PPP) [Time] 22.5 s High 9.7-13.0 [facility] Comment on above: Order Comment: Speci men Type: BLOOD SPECIMENOrdering Facility: [facility] Address: [address] [place] [address] Performed By: #### 3 4528-0 ####[facility] LABORATORYCLIA [id number] [place] [id number] [facility] CASE MANAGEMon 06-26-2025 CASE MANAGEM Normal [facility] CBC W Auto Differential pane l (Bld)on 06-26-2025 Basophils (Bld) [#/Vol] 0.05 10*3/uL Normal <0.11 [facility] Comment on above: Order Comment: Speci men Type: BLOOD SPECIMENOrdering Facility: [facility] Address: [address] [place] [address] Performed By: #### 5 7021-8 ####[facility]ORATORYCLIA [id number] [address] Basophils/100 WBC (Bld) 0.6 % Normal [facility] Comment on above: Order Comment: Speci men Type: BLOOD SPECIMENOrdering Facility: [facility] Address: [address] [place] [address] Performed By: #### 5 7021-8 ####[facility]ORATORYCLIA [id number] [address] Differential cell count method Nom (Bld) Auto Normal [facility] Comment on above: Order Comment: Speci men Type: BLOOD SPECIMENOrdering Facility: [facility] Address: [address] [place] [address] Performed By: #### 5 7021-8 ####[facility]ORATORYCLIA [id number] [address] [place] Eosinophils (Bld) [#/Vol] 0.65 10*3/uL High <0.46 [facility] Comment on above: Order Comment: Speci men Type: BLOOD SPECIMENOrdering Facility: [facility] Address: [address] [place] [address] Performed By: #### 5 7021-8 ####[facility]ORATORYCLIA [id number] [address] [place] Eosinophils/100 WBC (Bld) 7.4 % Normal [facility] Comment on above: Order Comment: Speci men Type: BLOOD SPECIMENOrdering Facility: [facility] Address: [address] [place] [address] Performed By: #### 5 7021-8 ####[facility]ORATORYCLIA [id number] [address] [place] Erythrocyte distribution width (RBC) [Ratio] 18.6 % High 11.5-15.0 [facility] Comment on above: Order Comment: Speci men Type: BLOOD SPECIMENOrdering Facility: [facility] Address: [address] [place] [address] Performed By: #### 5 7021-8 ####[facility]ORATORYCLIA [id number] [address] [place] Hematocrit (Bld) [Volume fraction] 34.5 % Low 39.0-51.0 [facility] Comment on above: Order Comment: Speci men Type: BLOOD SPECIMENOrdering Facility: [facility] Address: [address] [place] [address] Performed By: #### 5 7021-8 ####[facility]ORATORYCLIA [id number] [address] [place] Hemoglobin (Bld) [Mass/Vol] 10.4 g/dL Low 13.0-17.0 [facility] Comment on above: Order Comment: Speci men Type: BLOOD SPECIMENOrdering Facility: [facility] Address: [address] [place] [address] Performed By: #### 5 7021-8 ####[facility]ORATORYCLIA [id number] [address] [place] Immature granulocytes (Bld) [#/Vol] 0.03 10*3/uL Normal <0.10 [facility] Comment on above: Order Comment: Speci men Type: BLOOD SPECIMENOrdering Facility: [facility] Address: [address] [place] [address] Performed By: #### 5 7021-8 ####[facility]ORATORYCLIA [id number] [address] STATES [facility] Immature granulocytes/100 WBC (Bld) 0.3 % Normal [facility] Comment on above: Order Comment: Speci men Type: BLOOD SPECIMENOrdering Facility: [facility] Address: [address] [place] [address] Performed By: #### 5 7021-8 ####[facility]ORATORYCLIA [id number] [address] [place] Lymphocytes (Bld) [#/Vol] 1.62 10*3/uL Normal 1.00-4.00 [facility] Comment on above: Order Comment: Speci men Type: BLOOD SPECIMENOrdering Facility: [facility] Address: [address] [place] [address] Performed By: #### 5 7021-8 ####[facility]ORATORYCLIA [id number] [address] Lymphocytes/100 WBC (Bld) 18.4 % Normal [facility] Comment on above: Order Comment: Speci men Type: BLOOD SPECIMENOrdering Facility: [facility] Address: [address] [place] [address] Performed By: #### 5 7021-8 ####[facility]ORATORYCLIA [id number] [address] [place] MCH (RBC) [Entitic mass] 30.0 pg Normal 26.0-34.0 [facility] Comment on above: Order Comment: Speci men Type: BLOOD SPECIMENOrdering Facility: [facility] Address: [address] [place] [address] Performed By: #### 5 7021-8 ####[facility]ORATORYCLIA [id number] [address] [place] MCHC (RBC) [Mass/Vol] 30.1 g/dL Low 30.5-36.0 [facility] Comment on above: Order Comment: Speci men Type: BLOOD SPECIMENOrdering Facility: [facility] Address: [address] [place] [address] Performed By: #### 5 7021-8 ####[facility]ORATORYCLIA [id number] [address] [place] MCV (RBC) [Entitic vol] 99.4 fL Normal 80.0-100.0 [facility] Comment on above: Order Comment: Speci men Type: BLOOD SPECIMENOrdering Facility: [facility] Address: [address] [place] [address] Performed By: #### 5 7021-8 ####[facility]ATORYCLIA [id number] [address] [place] Monocytes (Bld) [#/Vol] 1.03 10*3/uL High <0.87 [facility] Comment on above: Order Comment: Speci men Type: BLOOD SPECIMENOrdering Facility: [facility] Address: [address] [place] [address] Performed By: #### 5 7021-8 ####[facility]ORATORYCLIA [id number] [address] STATES OF [facility] Monocytes/100 WBC (Bld) 11.7 % Normal [facility] Comment on above: Order Comment: Speci men Type: BLOOD SPECIMENOrdering Facility: [facility] Address: [address] [place] [address] Performed By: #### 5 7021-8 ####[facility]ORATORYCLIA [id number] [address] [place] Neutrophils (Bld) [#/Vol] 5.41 10*3/uL Normal 1.45-7.50 [facility] Comment on above: Order Comment: Speci men Type: BLOOD SPECIMENOrdering Facility: [facility] Address: [address] [place] [address] Performed By: #### 5 7021-8 ####[facility]ATORYCLIA [id number] [address] Neutrophils/100 WBC (Bld) 61.6 % Normal [facility] Comment on above: Order Comment: Speci men Type: BLOOD SPECIMENOrdering Facility: [facility] Address: [address] [place] [address] Performed By: #### 5 7021-8 ####[facility]ORATORYCLIA [id number] [address] [place] Nucleated RBC (Bld) [#/Vol] 10*3/uL Normal <0.01 [facility] Comment on above: Order Comment: Speci men Type: BLOOD SPECIMENOrdering Facility: [facility] Address: [address] [place] [address] Performed By: #### 5 7021-8 ####[facility]ORATORYCLIA [id number] [address] Nucleated RBC/100 WBC (Bld) [Ratio] 0.0 /100 WBC Normal [facility] Comment on above: Order Comment: Speci men Type: BLOOD SPECIMENOrdering Facility: [facility] Address: [address] [place] [address] Performed By: #### 5 7021-8 ####[facility]ORATORYCLIA [id number] [address] [place] Platelet mean volume (Bld) [Entitic vol] 8.6 fL Low 9.0-12.7 [facility] Comment on above: Order Comment: Speci men Type: BLOOD SPECIMENOrdering Facility: [facility] Address: [address] [place] [address] Performed By: #### 5 7021-8 ####[facility]ORATORYCLIA [id number] [address] [place] Platelets (Bld) [#/Vol] 212 10*3/uL Normal 150-400 [facility] Comment on above: Order Comment: Speci men Type: BLOOD SPECIMENOrdering Facility: [facility] Address: [address] [place] [address] Performed By: #### 5 7021-8 ####[facility]ORATORYCLIA [id number] [address] STATES OF [facility] RBC (Bld) [#/Vol] 3.47 10*6/uL Low 4.20-6.00 [facility] Comment on above: Order Comment: Speci men Type: BLOOD SPECIMENOrdering Facility: [facility] Address: [address] [place] [address] Performed By: #### 5 7021-8 ####[facility]ORATORYCLIA [id number] [address] STATES OF [facility] WBC (Bld) [#/Vol] 8.79 10*3/uL Normal 3.70-11.00 [facility] Comment on above: Order Comment: Speci men Type: BLOOD SPECIMENOrdering Facility: [facility] Address: [address] [place] [address] Performed By: #### 5 7021-8 ####[facility]ORATORYCLIA [id number] [address] OF [facility] CONSULT PROGon 06-26-2025 CONSULT PROG Normal [facility] CONSULT PROG Normal [facility] Comprehensive metabolic 2000 panelon 06-26-2025 Albumin [Mass/Vol] 3.1 g/dL Low 3.9-4.9 [facility] Comment on above: Order Comment: Speci men Type: BLOOD SPECIMENOrdering Facility: [facility] Address: [address] [place] [address] Performed By: #### 2 4323-8 ####[facility]ORATORYCLIA [id number] [address] [place] ALP [Catalytic activity/Vol] 493 U/L High 38-113 [facility] Comment on above: Order Comment: Speci men Type: BLOOD SPECIMENOrdering Facility: [facility] Address: [address] [place] [address] Performed By: #### 2 4323-8 ####[facility] LABORATORYCLIA [id number] [address] STATES OF [facility] ALT With P-5'-P [Catalytic activity/Vol] 13 U/L Normal 10-54 [facility] Comment on above: Order Comment: Speci men Type: BLOOD SPECIMENOrdering Facility: [facility] Address: [address] [place] [address] Performed By: #### 2 4323-8 ####[facility]ORATORYCLIA [id number] [address] [place] Anion gap [Moles/Vol] 14 mmol/L Normal 8-15 [facility] Comment on above: Order Comment: Speci men Type: BLOOD SPECIMENOrdering Facility: [facility] Address: [address] [place] [address] Performed By: #### 2 4323-8 ####[facility]ORATORYCLIA [id number] [address] STATES OF [facility] AST With P-5'-P [Catalytic activity/Vol] 27 U/L Normal 14-40 [facility] Comment on above: Order Comment: Speci men Type: BLOOD SPECIMENOrdering Facility: [facility] Address: [address] [place] [address] Performed By: #### 2 4323-8 ####[facility]ORATORYCLIA [id number] [address] [place] Bilirubin [Mass/Vol] 0.7 mg/dL Normal 0.2-1.3 [facility] Comment on above: Order Comment: Speci men Type: BLOOD SPECIMENOrdering Facility: [facility] Address: [address] [place] [address] Performed By: #### 2 4323-8 ####[facility] LABORATORYCLIA [id number] [address] STATES OF [facility] Calcium [Mass/Vol] 9.0 mg/dL Normal 8.5-10.2 [facility] Comment on above: Order Comment: Speci men Type: BLOOD SPECIMENOrdering Facility: [facility] Address: [address] [place] [address] Performed By: #### 2 4323-8 ####[facility] LABORATORYCLIA [id number] [address] STATES OF [facility] Chloride [Moles/Vol] 96 mmol/L Low 98-107 [facility] Comment on above: Order Comment: Speci men Type: BLOOD SPECIMENOrdering Facility: [facility] Address: [address] [place] [address] Performed By: #### 2 4323-8 ####[facility] LABORATORYCLIA [id number] [address] [place] CO2 [Moles/Vol] 27 mmol/L Normal 22-30 [facility] Comment on above: Order Comment: Speci men Type: BLOOD SPECIMENOrdering Facility: [facility] Address: [address] [place] [address] Performed By: #### 2 4323-8 ####[facility] LABORATORYCLIA [id number] [address] [place] Creatinine [Mass/Vol] 6.02 mg/dL High 0.73-1.22 [facility] Comment on above: Order Comment: Speci men Type: BLOOD SPECIMENOrdering Facility: [facility] Address: [address] [place] [address] Performed By: #### 2 4323-8 ####[facility] LABORATORYCLIA [id number] [address] [place] eGFRcr SerPlBld CKD-EPI 2020 9 mL/min/1.73m??? Low >=60 [facility] Comment on above: Order Comment: Speci men Type: BLOOD SPECIMENOrdering Facility: [facility] Address: [address] [place] [address] Result Comment: Faviola mated Glomerular Filtration Rate (eGFR) is calculated using the 2020 CKD-EPI creatinine equation. This equation utilizes serum creatinine, sex, and age as parameters. The creatinine assay has traceable calibration to isotope dilution-mass spectrometry. Refer to KDIGO guidelines for clinical interpretation. In patients with unstable renal function, e.g. those with acute kidney injury, the eGFR may not accurately reflect actual GFR. Performed By: #### 2 4323-8 ####[facility] LABORATORYCLIA [id number] [place] [address] [place] Glucose [Mass/Vol] 108 mg/dL High 74-99 [facility] Comment on above: Order Comment: Zach ortega Type: BLOOD SPECIMENOrdering Facility: [facility] Address: [address] [place] [address] Result Comment: The [place] [employer] (ADA) provides guidance for cutoff values for fasting glucose and random glucose. The ADA defines fasting as no caloric intake for at least 8 hours. Fasting plasma glucose results between 100 to 125 mg/dL indicate increased risk for diabetes (prediabetes).Fasting plasma glucose results greater than or equal to 126 mg/dL meet the criteria for diagnosis of diabetes. In the absence of unequivocal hyperglycemia, results should be confirmed by repeat testing. In a patient with classic symptoms of hyperglycemia or hyperglycemic crisis, random plasma glucose results greater than or equal to 200 mg/dL meet the criteria for diagnosis of diabetes.Reference: Standards of Medical Care in Diabetes 2016, [place] [employer]. Diabetes Care. 2016.39(Suppl 1). Performed By: #### 2 4323-8 ####[facility] LABORATORYCLIA [id number] [place] [address] [place] Potassium [Moles/Vol] 3.7 mmol/L Normal 3.7-5.1 [facility] Comment on above: Order Comment: Zach ortega Type: BLOOD SPECIMENOrdering Facility: [facility] Address: [address] [address] Performed By: #### 2 4323-8 ####[facility] LABORATORYCLIA [id number] [place] [id number] [place] Protein [Mass/Vol] 6.5 g/dL Normal 6.3-8.0 [facility] Comment on above: Order Comment: Zach ortega Type: BLOOD SPECIMENOrdering Facility: [facility] Address: [address] [place] [address] Performed By: #### 2 4323-8 ####[facility] LABORATORYCLIA [id number] [address] STATES [facility] Sodium [Moles/Vol] 137 mmol/L Normal 136-144 [facility] Comment on above: Order Comment: Speci men Type: BLOOD SPECIMENOrdering Facility: [facility] Address: [address] [place] [address] Performed By: #### 2 4323-8 ####[facility] LABORATORYCLIA [id number] [address] [place] Urea nitrogen [Mass/Vol] 32 mg/dL High 9-24 [facility] Comment on above: Order Comment: Speci men Type: BLOOD SPECIMENOrdering Facility: [facility] Address: [address] [place] [address] Performed By: #### 2 4323-8 ####[facility] LABORATORYCLIA [id number] [address] [place] ECG COMPLETEon 06-26-2025 ECG COMPLETE Normal [facility] ESR Westergren method (Bld) [Velocity]on 06-26-2025 ESR (Bld) [Velocity] 79 mm/h High 0-15 [facility] Comment on above: Order Comment: Speci men Type: BLOOD SPECIMENOrdering Facility: [facility] Address: [address] [place] [address] Performed By: #### 4 537-7 ####[facility] LABCLIA [id number] [address] [place] OPERATIVE NOon 06-26-2025 OPERATIVE NO Normal [facility] PT panel Coag (PPP)on 2024 INR Coag (PPP) [Relative time] 2.2 {INR} High 0.9-1.3 [facility] Comment on above: Order Comment: Speci men Type: BLOOD SPECIMENOrdering Facility: [facility] Address: [address] [place] [address] Result Comment: Zina min K Antagonist (VKA) Therapeutic Range: INR 2 to 3 (Target INR of 2.5)Note: For patients treated with VKA drugs, such as warfarin, the [place] [employer] 2012 Guideline recommends a therapeutic INR range of 2 to 3 (target INR of 2.5). This recommendation includes high-risk patients with antiphospholipid syndrome with previous arterial or venous thromboembolism, current-generation mechanical or bioprosthetic aortic heart valve replacement.Note: Patients with mechanical aortic valve replacement and additional risk factors for thromboembolic events (atrial fibrillation, previous thromboembolism, LV dysfunction, hypercoagulable conditions) or an older generation mechanical AVR (i.e., ball in-Cage) or any mechanical MVR should have a INR therapeutic range of 2.5 to 3.5 (target INR of 3).Karon GH, et al. Chest 2012, 141:7S-47SNisheugenieura RA, et al. [facility] 2017, 70: 252-289 Performed By: #### 3 4528-0 ####[facility] LABORATORYCLIA [id number] [place] [address] [place] PT Coag (PPP) [Time] 22.4 s High 9.7-13.0 [facility] Comment on above: Order Comment: Speci men Type: BLOOD SPECIMENOrdering Facility: [facility] Address: [address] [place] [address] Performed By: #### 3 4528-0 ####[facility] LABORATORYCLIA [id number] [place] [address] [place] THERAPY NTon 06-26-2025 THERAPY NT Normal [facility] THERAPY NT Normal [facility] ALLIED HEALTHon 06-25-2025 ALLIED HEALTH Normal [facility] Basic metabolic 2000 panelon 06-25-2025 Anion gap [Moles/Vol] 17 mmol/L High 8-15 [facility] Comment on above: Order Comment: Camdeni jordan Type: BLOOD SPECIMENOrdering Facility: [facility] Address: [address] [place] [address] Performed By: #### 2 4321-2, 2777-1, 1987- ####[facility] LABORATORYCLIA [id number] [place] [address] [place] Calcium [Mass/Vol] 8.5 mg/dL Normal 8.5-10.2 [facility] Comment on above: Order Comment: Speci men Type: BLOOD SPECIMENOrdering Facility: [facility] Address: [address] [place] [address] Performed By: #### 2 4321-2, 2776-11, 1988-03 ####[facility] LABORATORYCLIA [id number] [place] [address] [place] Chloride [Moles/Vol] 95 mmol/L Low 98-107 [facility] Comment on above: Order Comment: Speci men Type: BLOOD SPECIMENOrdering Facility: [facility] Address: [address] [place] [address] Performed By: #### 2 2, 2776-11, 1988-03 ####[facility] LABORATORYCLIA [id number] [address] STATES OF [facility] CO2 [Moles/Vol] 24 mmol/L Normal 22-30 [facility] Comment on above: Order Comment: Speci men Type: BLOOD SPECIMENOrdering Facility: [facility] Address: [address] [place] [address] Performed By: #### 2 2, 2776-11, 1988-03 ####[facility] LABORATORYCLIA [id number] [place] [address] [place] Creatinine [Mass/Vol] 4.32 mg/dL High 0.73-1.22 [facility] Comment on above: Order Comment: Speci men Type: BLOOD SPECIMENOrdering Facility: [facility] Address: [address] [place] [address] Performed By: #### 2 432-2, 2776-11, 1988-03 ####[facility] LABORATORYCLIA [id number] [place] [address] [place] eGFRcr SerPlBld CKD-EPI 2020 13 mL/min/1.73m??? Low >=60 [facility] Comment on above: Order Comment: Speci men Type: BLOOD SPECIMENOrdering Facility: [facility] Address: [address] [place] [address] Result Comment: Faviola mated Glomerular Filtration Rate (eGFR) is calculated using the 2020 CKD-EPI creatinine equation. This equation utilizes serum creatinine, sex, and age as parameters. The creatinine assay has traceable calibration to isotope dilution-mass spectrometry. Refer to KDIGO guidelines for clinical interpretation. In patients with unstable renal function, e.g. those with acute kidney injury, the eGFR may not accurately reflect actual GFR. Performed By: #### 2 4321-2, 2776-11, 1988-03 ####[facility] LABORATORYCLIA [id number] [place] [address] [place] Glucose [Mass/Vol] 98 mg/dL Normal 74-99 [facility] Comment on above: Order Comment: Zach ortega Type: BLOOD SPECIMENOrdering Facility: [facility] Address: [address] [place] [address] Result Comment: The [place] Diabetes [employer] (ADA) provides guidance for cutoff values for fasting glucose and random glucose. The ADA defines fasting as no caloric intake for at least 8 hours. Fasting plasma glucose results between 100 to 125 mg/dL indicate increased risk for diabetes (prediabetes).Fasting plasma glucose results greater than or equal to 126 mg/dL meet the criteria for diagnosis of diabetes. In the absence of unequivocal hyperglycemia, results should be confirmed by repeat testing. In a patient with classic symptoms of hyperglycemia or hyperglycemic crisis, random plasma glucose results greater than or equal to 200 mg/dL meet the criteria for diagnosis of diabetes.Reference: Standards of Medical Care in Diabetes 2016, [place] [employer]. Diabetes Care. 2016.39(Suppl 1). Performed By: #### 2 432-2, 2776-11, 1988-03 ####[facility] LABORATORYCLIA [id number] [place] [id number] [place] Potassium [Moles/Vol] 3.7 mmol/L Normal 3.7-5.1 [facility] Comment on above: Order Comment: Zach ortega Type: BLOOD SPECIMENOrdering Facility: [facility] Address: [address] [address] Performed By: #### 2 432-2, 2776-11, 1988-03 ####[facility] LABORATORYCLIA [id number] [place] [address] [place] Sodium [Moles/Vol] 136 mmol/L Normal 136-144 [facility] Comment on above: Order Comment: Speci men Type: BLOOD SPECIMENOrdering Facility: [facility] Address: [address] [place] [address] Performed By: #### 2 4321-2, 2776-11, 1988-03 ####[facility] LABORATORYCLIA [id number] [place] [address] [place] Urea nitrogen [Mass/Vol] 23 mg/dL Normal 9-24 [facility] Comment on above: Order Comment: Speci men Type: BLOOD SPECIMENOrdering Facility: [facility] Address: [address] [place] [address] Performed By: #### 2 4322, 2776-11, 1988-03 ####[facility] LABORATORYCLIA [id number] [address] [place] CASE MGT INIT ASSESon 2024 CASE MGT INIT ASSES Normal [facility] CBC W Auto Differential pane l (Bld)on 06-25-2025 Basophils (Bld) [#/Vol] 0.05 10*3/uL Normal <0.11 [facility] Comment on above: Order Comment: Speci men Type: BLOOD SPECIMENOrdering Facility: [facility] Address: [address] [place] [address] Performed By: #### 5 7021-8 ####[facility] LABORATORYCLIA [id number] [address] [place] Basophils/100 WBC (Bld) 0.6 % Normal [facility] Comment on above: Order Comment: Speci men Type: BLOOD SPECIMENOrdering Facility: [facility] Address: [address] [place] [address] Performed By: #### 5 7021-8 ####[facility] LABORATORYCLIA [id number] [address] [place] Differential cell count method Nom (Bld) Auto Normal [facility] Comment on above: Order Comment: Speci men Type: BLOOD SPECIMENOrdering Facility: [facility] Address: [address] [place] [address] Performed By: #### 5 7021-8 ####[facility] LABORATORYCLIA [id number] [address] [place] Eosinophils (Bld) [#/Vol] 0.38 10*3/uL Normal <0.46 [facility] Comment on above: Order Comment: Speci men Type: BLOOD SPECIMENOrdering Facility: [facility] Address: [address] [place] [address] Performed By: #### 5 7021-8 ####[facility] LABORATORYCLIA [id number] [address] Eosinophils/100 WBC (Bld) 4.7 % Normal [facility] Comment on above: Order Comment: Speci men Type: BLOOD SPECIMENOrdering Facility: [facility] Address: [address] [place] [address] Performed By: #### 5 7021-8 ####[facility] LABORATORYCLIA [id number] [address] Erythrocyte distribution width (RBC) [Ratio] 18.3 % High 11.5-15.0 [facility] Comment on above: Order Comment: Speci men Type: BLOOD SPECIMENOrdering Facility: [facility] Address: [address] [place] [address] Performed By: #### 5 7021-8 ####[facility] LABORATORYCLIA [id number] [address] [place] Hematocrit (Bld) [Volume fraction] 34.3 % Low 39.0-51.0 [facility] Comment on above: Order Comment: Speci men Type: BLOOD SPECIMENOrdering Facility: [facility] Address: [address] [place] [address] Performed By: #### 5 7021-8 ####[facility]ORATORYCLIA [id number] [place] [address] [place] Hemoglobin (Bld) [Mass/Vol] 10.3 g/dL Low 13.0-17.0 [facility] Comment on above: Order Comment: Speci men Type: BLOOD SPECIMENOrdering Facility: [facility] Address: [address] [place] [address] Performed By: #### 5 7021-8 ####[facility] LABORATORYCLIA [id number] [place] [address] [place] Immature granulocytes (Bld) [#/Vol] 0.03 10*3/uL Normal <0.10 [facility] Comment on above: Order Comment: Speci men Type: BLOOD SPECIMENOrdering Facility: [facility] Address: [address] [place] [address] Performed By: #### 5 7021-8 ####[facility] LABORATORYCLIA [id number] [address] [place] Immature granulocytes/100 WBC (Bld) 0.4 % Normal [facility] Comment on above: Order Comment: Speci men Type: BLOOD SPECIMENOrdering Facility: [facility] Address: [address] [place] [address] Performed By: #### 5 7021-8 ####[facility] LABORATORYCLIA [id number] [place] [address] [place] Lymphocytes (Bld) [#/Vol] 1.00 10*3/uL Normal 1.00-4.00 [facility] Comment on above: Order Comment: Speci men Type: BLOOD SPECIMENOrdering Facility: [facility] Address: [address] [place] [address] Performed By: #### 5 7021-8 ####[facility] LABORATORYCLIA [id number] [address] [place] Lymphocytes/100 WBC (Bld) 12.4 % Normal [facility] Comment on above: Order Comment: Speci men Type: BLOOD SPECIMENOrdering Facility: [facility] Address: [address] [place] [address] Performed By: #### 5 7021-8 ####[facility] LABORATORYCLIA [id number] [address] MCH (RBC) [Entitic mass] 30.3 pg Normal 26.0-34.0 [facility] Comment on above: Order Comment: Speci men Type: BLOOD SPECIMENOrdering Facility: [facility] Address: [address] [place] [address] Performed By: #### 5 7021-8 ####[facility] LABORATORYCLIA [id number] [address] STATES OF [facility] MCHC (RBC) [Mass/Vol] 30.0 g/dL Low 30.5-36.0 [facility] Comment on above: Order Comment: Speci men Type: BLOOD SPECIMENOrdering Facility: [facility] Address: [address] [place] [address] Performed By: #### 5 7021-8 ####[facility] LABORATORYCLIA [id number] [address] MCV (RBC) [Entitic vol] 100.9 fL High 80.0-100.0 [facility] Comment on above: Order Comment: Speci men Type: BLOOD SPECIMENOrdering Facility: [facility] Address: [address] [place] [address] Performed By: #### 5 7021-8 ####[facility] LABORATORYCLIA [id number] [address] OF [facility] Monocytes (Bld) [#/Vol] 0.82 10*3/uL Normal <0.87 [facility] Comment on above: Order Comment: Speci men Type: BLOOD SPECIMENOrdering Facility: [facility] Address: [address] [place] [address] Performed By: #### 5 7021-8 ####[facility]ORATORYCLIA [id number] [address] Monocytes/100 WBC (Bld) 10.2 % Normal [facility] Comment on above: Order Comment: Speci men Type: BLOOD SPECIMENOrdering Facility: [facility] Address: [address] [place] [address] Performed By: #### 5 7021-8 ####[facility] LABORATORYCLIA [id number] [address] [place] Neutrophils (Bld) [#/Vol] 5.76 10*3/uL Normal 1.45-7.50 [facility] Comment on above: Order Comment: Speci men Type: BLOOD SPECIMENOrdering Facility: [facility] Address: [address] [place] [address] Performed By: #### 5 7021-8 ####[facility] LABORATORYCLIA [id number] [address] [place] Neutrophils/100 WBC (Bld) 71.7 % Normal [facility] Comment on above: Order Comment: Speci men Type: BLOOD SPECIMENOrdering Facility: [facility] Address: [address] [place] [address] Performed By: #### 5 7021-8 ####[facility]ORATORYCLIA [id number] [address] [place] Nucleated RBC (Bld) [#/Vol] 10*3/uL Normal <0.01 [facility] Comment on above: Order Comment: Speci men Type: BLOOD SPECIMENOrdering Facility: [facility] Address: [address] [place] [address] Performed By: #### 5 7021-8 ####[facility] LABORATORYCLIA [id number] [address] [place] Nucleated RBC/100 WBC (Bld) [Ratio] 0.0 /100 WBC Normal [facility] Comment on above: Order Comment: Speci men Type: BLOOD SPECIMENOrdering Facility: [facility] Address: [address] [place] [address] Performed By: #### 5 7021-8 ####[facility]ORATORYCLIA [id number] [place] [address] [place] Platelet mean volume (Bld) [Entitic vol] 8.9 fL Low 9.0-12.7 [facility] Comment on above: Order Comment: Speci men Type: BLOOD SPECIMENOrdering Facility: [facility] Address: [address] [place] [address] Performed By: #### 5 7021-8 ####[facility] LABORATORYCLIA [id number] [place] [address] [place] Platelets (Bld) [#/Vol] 212 10*3/uL Normal 150-400 [facility] Comment on above: Order Comment: Speci men Type: BLOOD SPECIMENOrdering Facility: [facility] Address: [address] [place] [address] Performed By: #### 5 7021-8 ####[facility] LABORATORYCLIA [id number] [place] [address] [place] RBC (Bld) [#/Vol] 3.40 10*6/uL Low 4.20-6.00 [facility] Comment on above: Order Comment: Speci men Type: BLOOD SPECIMENOrdering Facility: [facility] Address: [address] [place] [address] Performed By: #### 5 7021-8 ####[facility] LABORATORYCLIA [id number] [address] WBC (Bld) [#/Vol] 8.04 10*3/uL Normal 3.70-11.00 [facility] Comment on above: Order Comment: Speci men Type: BLOOD SPECIMENOrdering Facility: [facility] Address: [address] [place] [address] Performed By: #### 5 7021-8 ####[facility] LABORATORYCLIA [id number] [address] [place] CONSULTon 06-25-2025 CONSULT Normal [facility] CONSULT Normal [facility] CONSULT PROGon 06-25-2025 CONSULT PROG Normal [facility] CONSULT PROG Normal [facility] CRP SerPl-mCncon 06-25-2025 CRP [Mass/Vol] 10.9 mg/dL High <0.9 [facility] Comment on above: Order Comment: Speci men Type: BLOOD SPECIMENOrdering Facility: [facility] Address: [address] [place] [address] Performed By: #### 2 4321-2, 2777-1, 1987- ####[facility] LABORATORYCLIA [id number] [address] [place] CT CERVICAL SPINE W IVCONon 06-25-2025 CT CERVICAL SPINE W IVCON Normal [facility] CT CHEST WO IVCONon 06-25-20 CT CHEST WO IVCON Normal [facility] CT LUMBAR SPINE W IVCONon CT LUMBAR SPINE W IVCON Normal A [facility] CT THORACIC SPINE W IVCONon 06-25-2025 CT THORACIC SPINE W IVCON Normal [facility] Lactate (Bld) [Moles/Vol]on 06-25-2025 Lactate [Moles/Vol] 1.7 mmol/L Normal 0.5-2.2 [facility] Comment on above: Order Comment: Zach ortega Type: BLOOD SPECIMENOrdering Facility: [facility] Address: [address] [place] [address] Performed By: #### 3 2693-4 ####[facility] LABORATORYCLIA [id number] [address] [place] NURSING PROGon 06-25-2025 NURSING PROG Normal [facility] NUTRITIONon 06-25-2025 NUTRITION Normal [facility] PT panel Coag (PPP)on 2024 INR Coag (PPP) [Relative time] 2.5 {INR} High 0.9-1.3 [facility] Comment on above: Order Comment: Zach ortega Type: BLOOD SPECIMENOrdering Facility: [facility] Address: [address] [place] [address] Result Comment: Zina min K Antagonist (VKA) Therapeutic Range: INR 2 to 3 (Target INR of 2.5)Note: For patients treated with VKA drugs, such as warfarin, the [place] [employer] 2012 Guideline recommends a therapeutic INR range of 2 to 3 (target INR of 2.5). This recommendation includes high-risk patients with antiphospholipid syndrome with previous arterial or venous thromboembolism, current-generation mechanical or bioprosthetic aortic heart valve replacement.Note: Patients with mechanical aortic valve replacement and additional risk factors for thromboembolic events (atrial fibrillation, previous thromboembolism, LV dysfunction, hypercoagulable conditions) or an older generation mechanical AVR (i.e., ball in-Cage) or any mechanical MVR should have a INR therapeutic range of 2.5 to 3.5 (target INR of 3).Karon GH, et al. Chest 2012, 141:7S-47SNishdawood RA, et al. [facility] 2017, 70: 252-289 Performed By: #### 3 4528-0 ####[facility] LABORATORYCLIA [id number] [address] [place] PT Coag (PPP) [Time] 26.0 s High 9.7-13.0 [facility] Comment on above: Order Comment: Zach ortega Type: BLOOD SPECIMENOrdering Facility: [facility] Address: [address] [place] [address] Performed By: #### 3 4528-0 ####[facility] LABORATORYCLIA [id number] [address] [place] Phosphate SerPl-mCncon 06-25 Phosphate [Mass/Vol] 3.4 mg/dL Normal 2.7-4.8 [facility] Comment on above: Order Comment: Zach ortega Type: BLOOD SPECIMENOrdering Facility: [facility] Address: [address] [place] [address] Performed By: #### 2 4321-2, 2777-1, 1987- ####[facility] LABORATORYCLIA [id number] [address] [place] THERAPY NTon 06-25-2025 THERAPY NT Normal [facility] Ammonia Plas-sCncon 06-24-20 25 Ammonia (P) [Moles/Vol] 20 umol/L Normal 16-60 [facility] Comment on above: Order Comment: Zach ortega Type: BLOOD SPECIMENOrdering Facility: [facility] Address: [address] [place] [address] Performed By: #### 1 6362-6 ####[facility] LABORATORYCLIA [id number] [address] STATES OF [facility] Bacteria Bld Culton 06-24-20 Bacteria identified Cx Nom (Bld) ORGANISM ID: 1 Culture report of Staphylococcus epidermidis Refer to specimen collected on 06/24/25 GRAM STAIN: Gram positive cocci Abnormal [facility] Comment on above: Performed By: #### I DBCGP, 600-7 ####[facility] LABORATORYCLIA [id number] [address] Bacteria identified Cx Nom (Bld) Abnormal [facility] Comment on above: Performed By: #### 6 00-7, IDBCGP ####[facility] LABORATORYCLIA [id number] [address] [place] Basic metabolic 2000 panelon 06-24-2025 Anion gap [Moles/Vol] 22 mmol/L High 8-15 [facility] Comment on above: Order Comment: Speci men Type: BLOOD SPECIMENOrdering Facility: [facility] Address: [address] [place] [address] Performed By: #### 2 4321-2 ####[facility] LABORATORYCLIA [id number] [place] [address] [place] Calcium [Mass/Vol] 8.2 mg/dL Low 8.5-10.2 [facility] Comment on above: Order Comment: Speci men Type: BLOOD SPECIMENOrdering Facility: [facility] Address: [address] [place] [address] Performed By: #### 2 4321-2 ####[facility] LABORATORYCLIA [id number] [address] [place] Chloride [Moles/Vol] 94 mmol/L Low 98-107 [facility] Comment on above: Order Comment: Speci men Type: BLOOD SPECIMENOrdering Facility: [facility] Address: [address] [place] [address] Performed By: #### 2 4321-2 ####[facility] LABORATORYCLIA [id number] [address] STATES OF [facility] CO2 [Moles/Vol] 21 mmol/L Low 22-30 [facility] Comment on above: Order Comment: Speci men Type: BLOOD SPECIMENOrdering Facility: [facility] Address: [address] [place] [address] Performed By: #### 2 4321-2 ####[facility] LABORATORYCLIA [id number] [address] [place] Creatinine [Mass/Vol] 3.28 mg/dL High 0.73-1.22 [facility] Comment on above: Order Comment: Speci men Type: BLOOD SPECIMENOrdering Facility: [facility] Address: [address] [place] [address] Performed By: #### 2 4321-2 ####[facility] [id number] [address] eGFRcr SerPlBld CKD-EPI 2020 19 mL/min/1.73m??? Low >=60 [facility] Comment on above: Order Comment: Speci men Type: BLOOD SPECIMENOrdering Facility: [facility] Address: [address] [place] [address] Result Comment: Faviola mated Glomerular Filtration Rate (eGFR) is calculated using the 2020 CKD-EPI creatinine equation. This equation utilizes serum creatinine, sex, and age as parameters. The creatinine assay has traceable calibration to isotope dilution-mass spectrometry. Refer to KDIGO guidelines for clinical interpretation. In patients with unstable renal function, e.g. those with acute kidney injury, the eGFR may not accurately reflect actual GFR. Performed By: #### 2 4321-2 ####[facility]ORATORYCLIA [id number] [address] OF [facility] Glucose [Mass/Vol] 98 mg/dL Normal 74-99 [facility] Comment on above: Order Comment: Speci men Type: BLOOD SPECIMENOrdering Facility: [facility] Address: [address] [place] [address] Result Comment: The [place] [employer] (ADA) provides guidance for cutoff values for fasting glucose and random glucose. The ADA defines fasting as no caloric intake for at least 8 hours. Fasting plasma glucose results between 100 to 125 mg/dL indicate increased risk for diabetes (prediabetes).Fasting plasma glucose results greater than or equal to 126 mg/dL meet the criteria for diagnosis of diabetes. In the absence of unequivocal hyperglycemia, results should be confirmed by repeat testing. In a patient with classic symptoms of hyperglycemia or hyperglycemic crisis, random plasma glucose results greater than or equal to 200 mg/dL meet the criteria for diagnosis of diabetes.Reference: Standards of Medical Care in Diabetes 2016, [place] [employer]. Diabetes Care. 2016.39(Suppl 1). Performed By: #### 2 4321-2 ####[facility]ORATORYCLIA [id number] [address] [place] Potassium [Moles/Vol] 3.3 mmol/L Low 3.7-5.1 [facility] Comment on above: Order Comment: Speci men Type: BLOOD SPECIMENOrdering Facility: [facility] Address: [address] [place] [address] Performed By: #### 2 4321-2 ####[facility]ORATORYCLIA [id number] [address] STATES [facility] Sodium [Moles/Vol] 137 mmol/L Normal 136-144 [facility] Comment on above: Order Comment: Speci men Type: BLOOD SPECIMENOrdering Facility: [facility] Address: [address] [place] [address] Performed By: #### 2 4321-2 ####[facility]ORATORYCLIA [id number] [address] STATES [facility] Urea nitrogen [Mass/Vol] 18 mg/dL Normal 9-24 [facility] Comment on above: Order Comment: Speci men Type: BLOOD SPECIMENOrdering Facility: [facility] Address: [address] [place] [address] Performed By: #### 2 4321-2 ####[facility]ORATORYCLIA [id number] [place] [address] [place] CBC W Auto Differential pane l (Bld)on 06-24-2025 Basophils (Bld) [#/Vol] 0.04 10*3/uL Normal <0.11 [facility] Comment on above: Order Comment: Speci men Type: BLOOD SPECIMENOrdering Facility: [facility] Address: [address] [place] [address] Performed By: #### 5 7021-8 ####[facility]ATORYCLIA [id number] [address] Basophils/100 WBC (Bld) 0.4 % Normal [facility] Comment on above: Order Comment: Speci men Type: BLOOD SPECIMENOrdering Facility: [facility] Address: [address] [place] [address] Performed By: #### 5 7021-8 ####[facility]ORATORYCLIA [id number] [address] Differential cell count method Nom (Bld) Auto Normal [facility] Comment on above: Order Comment: Speci men Type: BLOOD SPECIMENOrdering Facility: [facility] Address: [address] [place] [address] Performed By: #### 5 7021-8 ####[facility]ORATORYCLIA [id number] [address] STATES OF [facility] Eosinophils (Bld) [#/Vol] 0.27 10*3/uL Normal <0.46 [facility] Comment on above: Order Comment: Speci men Type: BLOOD SPECIMENOrdering Facility: [facility] Address: [address] [place] [address] Performed By: #### 5 7021-8 ####[facility]ATORYCLIA [id number] [address] Eosinophils/100 WBC (Bld) 2.7 % Normal [facility] Comment on above: Order Comment: Speci men Type: BLOOD SPECIMENOrdering Facility: [facility] Address: [address] [place] [address] Performed By: #### 5 7021-8 ####[facility]ORATORYCLIA [id number] [address] [place] Erythrocyte distribution width (RBC) [Ratio] 18.3 % High 11.5-15.0 [facility] Comment on above: Order Comment: Speci men Type: BLOOD SPECIMENOrdering Facility: [facility] Address: [address] [place] [address] Performed By: #### 5 7021-8 ####[facility]ORATORYCLIA [id number] [address] [place] Hematocrit (Bld) [Volume fraction] 32.2 % Low 39.0-51.0 [facility] Comment on above: Order Comment: Speci men Type: BLOOD SPECIMENOrdering Facility: [facility] Address: [address] [place] [address] Performed By: #### 5 7021-8 ####[facility]ORATORYCLIA [id number] [address] [place] Hemoglobin (Bld) [Mass/Vol] 9.9 g/dL Low 13.0-17.0 [facility] Comment on above: Order Comment: Speci men Type: BLOOD SPECIMENOrdering Facility: [facility] Address: [address] [place] [address] Performed By: #### 5 7021-8 ####[facility]ORATORYCLIA [id number] [address] [place] Immature granulocytes (Bld) [#/Vol] 0.05 10*3/uL Normal <0.10 [facility] Comment on above: Order Comment: Speci men Type: BLOOD SPECIMENOrdering Facility: [facility] Address: [address] [place] [address] Performed By: #### 5 7021-8 ####[facility]ORATORYCLIA [id number] [address] [place] Immature granulocytes/100 WBC (Bld) 0.5 % Normal [facility] Comment on above: Order Comment: Speci men Type: BLOOD SPECIMENOrdering Facility: [facility] Address: [address] [place] [address] Performed By: #### 5 7021-8 ####[facility]ORATORYCLIA [id number] [address] Lymphocytes (Bld) [#/Vol] 1.05 10*3/uL Normal 1.00-4.00 [facility] Comment on above: Order Comment: Speci men Type: BLOOD SPECIMENOrdering Facility: [facility] Address: [address] [place] [address] Performed By: #### 5 7021-8 ####[facility]ORATORYCLIA [id number] [address] Lymphocytes/100 WBC (Bld) 10.6 % Normal [facility] Comment on above: Order Comment: Speci men Type: BLOOD SPECIMENOrdering Facility: [facility] Address: [address] [place] [address] Performed By: #### 5 7021-8 ####[facility]ORATORYCLIA [id number] [address] MCH (RBC) [Entitic mass] 30.4 pg Normal 26.0-34.0 [facility] Comment on above: Order Comment: Speci men Type: BLOOD SPECIMENOrdering Facility: [facility] Address: [address] [place] [address] Performed By: #### 5 7021-8 ####[facility]ORATORYCLIA [id number] [address] STATES [facility] MCHC (RBC) [Mass/Vol] 30.7 g/dL Normal 30.5-36.0 [facility] Comment on above: Order Comment: Speci men Type: BLOOD SPECIMENOrdering Facility: [facility] Address: [address] [place] [address] Performed By: #### 5 7021-8 ####[facility]ORATORYCLIA [id number] [address] MCV (RBC) [Entitic vol] 98.8 fL Normal 80.0-100.0 [facility] Comment on above: Order Comment: Speci men Type: BLOOD SPECIMENOrdering Facility: [facility] Address: [facility] [place] [address] Performed By: #### 5 7021-8 ####[facility]ATORYCLIA [id number] [place] [address] [place] Monocytes (Bld) [#/Vol] 0.88 10*3/uL High <0.87 [facility] Comment on above: Order Comment: Speci men Type: BLOOD SPECIMENOrdering Facility: [facility] Address: [address] [place] [address] Performed By: #### 5 7021-8 ####[facility] LABORATORYCLIA [id number] [address] [place] Monocytes/100 WBC (Bld) 8.9 % Normal [facility] Comment on above: Order Comment: Speci men Type: BLOOD SPECIMENOrdering Facility: [facility] Address: [address] [place] [address] Performed By: #### 5 7021-8 ####[facility]ATORYCLIA [id number] [address] [place] Neutrophils (Bld) [#/Vol] 7.61 10*3/uL High 1.45-7.50 [facility] Comment on above: Order Comment: Speci men Type: BLOOD SPECIMENOrdering Facility: [facility] Address: [address] [place] [address] Performed By: #### 5 7021-8 ####[facility]ATORYCLIA [id number] [address] [place] Neutrophils/100 WBC (Bld) 76.9 % Normal [facility] Comment on above: Order Comment: Speci men Type: BLOOD SPECIMENOrdering Facility: [facility] Address: [address] [place] [address] Performed By: #### 5 7021-8 ####[facility]ATORYCLIA [id number] [address] [place] Nucleated RBC (Bld) [#/Vol] 10*3/uL Normal <0.01 [facility] Comment on above: Order Comment: Speci men Type: BLOOD SPECIMENOrdering Facility: [facility] Address: [address] [place] [address] Performed By: #### 5 7021-8 ####[facility]ORATORYCLIA [id number] [address] [place] Nucleated RBC/100 WBC (Bld) [Ratio] 0.0 /100 WBC Normal [facility] Comment on above: Order Comment: Speci men Type: BLOOD SPECIMENOrdering Facility: [facility] Address: [address] [place] [address] Performed By: #### 5 7021-8 ####[facility]ORATORYCLIA [id number] [address] [place] Platelet mean volume (Bld) [Entitic vol] 9.1 fL Normal 9.0-12.7 [facility] Comment on above: Order Comment: Speci men Type: BLOOD SPECIMENOrdering Facility: [facility] Address: [address] [place] [address] Performed By: #### 5 7021-8 ####[facility]ORATORYCLIA [id number] [address] [place] Platelets (Bld) [#/Vol] 214 10*3/uL Normal 150-400 [facility] Comment on above: Order Comment: Speci men Type: BLOOD SPECIMENOrdering Facility: [facility] Address: [address] [place] [address] Performed By: #### 5 7021-8 ####[facility]ORATORYCLIA [id number] [address] [place] RBC (Bld) [#/Vol] 3.26 10*6/uL Low 4.20-6.00 [facility] Comment on above: Order Comment: Speci men Type: BLOOD SPECIMENOrdering Facility: [facility] Address: [address] [place] [address] Performed By: #### 5 7021-8 ####[facility]ORATORYCLIA [id number] [place] [address] [place] WBC (Bld) [#/Vol] 9.90 10*3/uL Normal 3.70-11.00 [facility] Comment on above: Order Comment: Speci men Type: BLOOD SPECIMENOrdering Facility: [facility] Address: [address] [place] [address] Performed By: #### 5 7021-8 ####[facility]ORATORYCLIA [id number] [address] [place] CONSULTon 06-24-2025 CONSULT Normal [facility] CONSULT Normal [facility] CONSULT PROGon 06-24-2025 CONSULT PROG Normal [facility] CT CERVICAL SPINE WO IVCONon 06-24-2025 CT CERVICAL SPINE WO IVCON Normal [facility] CT THORACIC SPINE WO IVCONon 06-24-2025 CT THORACIC SPINE WO IVCON Normal [facility] GRAM POSITIVE ORGANISM ID BY MICROARRAY ([employer])on 06-24-2025 GRAM POSITIVE ORGANISM ID BY MICRO[employer] ([employer]) Abnormal [facility] Comment on above: Performed By: #### I DBCGP, 600-7 ####[facility]ORATORYCLIA [id number] [address] Performed By: #### 6 00-7, IDBCGP ####[facility]ORATORYCLIA [id number] [address] [place] HBV surface Ag Ser Qlon 08-0 HBV surface Ag Ql (S) Non-Reactive Normal Nonreactive [facility] Comment on above: Order Comment: Speci men Type: BLOOD SPECIMENOrdering Facility: [facility] Address: [address] [place] [address] Performed By: #### 5 195-3 ####[facility]ORATORYCLIA [id number] [address] [place] HISTORY PHYSICALon HISTORY PHYSICAL Normal [facility] NURSING PROGon 06-24-2025 NURSING PROG Normal [facility] NURSING PROG Normal [facility] PT panel Coag (PPP)on 2024 INR Coag (PPP) [Relative time] 2.9 {INR} High 0.9-1.3 [facility] Comment on above: Order Comment: Spectrent ortega Type: BLOOD SPECIMENOrdering Facility: [facility] Address: [address] [place] [address] Result Comment: Zina min K Antagonist (VKA) Therapeutic Range: INR 2 to 3 (Target INR of 2.5)Note: For patients treated with VKA drugs, such as warfarin, the [place] [employer] 2012 Guideline recommends a therapeutic INR range of 2 to 3 (target INR of 2.5). This recommendation includes high-risk patients with antiphospholipid syndrome with previous arterial or venous thromboembolism, current-generation mechanical or bioprosthetic aortic heart valve replacement.Note: Patients with mechanical aortic valve replacement and additional risk factors for thromboembolic events (atrial fibrillation, previous thromboembolism, LV dysfunction, hypercoagulable conditions) or an older generation mechanical AVR (i.e., ball in-Cage) or any mechanical MVR should have a INR therapeutic range of 2.5 to 3.5 (target INR of 3).Karon GH, et al. Chest 2012, 141:7S-47SNishimura RA, et al. [facility] 2017, 70: 252-289 Performed By: #### 3 4528-0, 00376-8 ####[facility]ORATORYCLIA [id number] [place] [address] [place] PT Coag (PPP) [Time] 29.0 s High 9.7-13.0 [facility] Comment on above: Order Comment: Speci men Type: BLOOD SPECIMENOrdering Facility: [facility] Address: [address] [address] Performed By: #### 3 4528-0, 74677-5 ####[facility]ORATORYCLIA [id number] [place] [address] [place] Procalcitonin SerPl-mCncon 0 06-24-2025 Procalcitonin [Mass/Vol] 0.50 ng/mL High <0.09 [facility] Comment on above: Order Comment: Speci men Type: BLOOD SPECIMENOrdering Facility: [facility] Address: [address] [place] [address] Result Comment: For a guided interpretation of test results, please visit the [facility] in Procalcitonin Calculator, [email or web address]. Performed By: #### 3 3959-8 ####[facility]ORATORYCLIA [id number] [address] [place] XR CHEST 1V FRONTALon 2024 XR CHEST 1V FRONTAL Normal [facility] aPTT PPPon 06-24-2025 aPTT Coag (PPP) [Time] 41.9 s High 23.0-32.4 [facility] Comment on above: Order Comment: Speci men Type: BLOOD SPECIMENOrdering Facility: [facility] Address: [address] [place], [place] [address] [address] Performed By: #### 3 4528-0, 15324-1 ####[facility]ORATORYCLIA [id number] [address] [place] Absolute lymphocyte countOrd ered By: Remus Verito on 06-23-2025 Lymphocytes Auto (Unsp spec) [#/Vol] 1.85 10*3/uL 0.83-4.51 [facility] Anion gap in Serum or Plasma Ordered By: Remus Verito on 06-23-2025 Anion gap [Moles/Vol] 16 mmol/L High 5-15 [facility] Automated lymphocyte count a s percentage of total leukocytesOrdered By: Remus Ungur on 06-23-2025 Lymphocytes/100 WBC Auto (Unsp spec) 15.5 % Low 19-41 [facility] BUN/creatinine ratioOrdered By: Remus Ungnaomie on 06-23-2025 Urea nitrogen/Creatinine [Mass ratio] 7.3 mg/mg Low 10-20 [facility] Basophil percentageOrdered B y: Remus Ungnaomie on 06-23-2025 Basophils/100 WBC (Bld) 0.6 % 0-[address] [facility] Bilirubin, totalOrdered By: Remus Ungur on 06-23-2025 Bilirubin [Mass/Vol] 0.76 mg/dL 0.00-1.30 [facility] Blood polychromasia detectio n by light microscopyOrdered By: Amy Viramontes on 06-23-2025 Polychromasia LM Ql (Bld) 1+ [facility] Carbon dioxide, total [Moles /volume] in Central venous bloodOrdered By: Amy Viramontes on 06-23-2025 CO2 [Moles/Vol] 28.0 mmol/L 21.0-32.0 [facility] Chloride assayOrdered By: Terra Viramontes on 06-23-2025 Chloride [Moles/Vol] 91 mmol/L Low 98-108 [facility] Eosinophil percentageOrdered By: Amy Viramontes on 06-23-2025 Eosinophils/100 WBC (Bld) 4.8 % 0-5 [facility] Erythrocyte distribution wid th ratioOrdered By: Amy Viramontes on 06-23-2025 Erythrocyte distribution width (RBC) [Ratio] 18.8 % High 11.6-14.6 [facility] Erythrocyte distribution wid th standard deviationOrdered By: Amy Viramontes on 06-23-2025 Erythrocyte distribution width (RBC) [Ratio] 68.0 fl High 35.1-43.9 [facility] Erythrocyte sedimentation ra teOrdered By: Amy Viramontes on 06-23-2025 ESR (Bld) [Velocity] 91 mm/h High 0-20 [facility] Glomerular filtration rate ( GFR) estimation/1.73 sq m using serum, plasma, or whole bOrdered By: Amy Viramontes on 06-23-2025 GFR/1.73 sq M.predicted among non-blacks MDRD (S/P/Bld) [Vol rate/Area] 9 mL/min/{1.73_m2} Low >60 [facility] Hematocrit Auto (Bld) [Volum e fraction]Ordered By: Amy Viramontes on 06-23-2025 Hematocrit (Bld) [Volume fraction] 33.6 % Low 40-54 [facility] Hemoglobin measurementOrdere d By: Amy Viramontes on 06-23-2025 Hemoglobin (Bld) [Mass/Vol] 10.7 g/dL Low 13.0-16.5 [facility] Immature granulocytes/100 WB C Auto (Bld)Ordered By: Amy Viramontes on 06-23-2025 Immature granulocytes/100 WBC (Bld) 0.500 % 0.0-0.9 [facility] MCV (mean corpuscular volume ) determinationOrdered By: Amy Viramontes on 06-23-2025 MCV (RBC) [Entitic vol] 98.5 fL High 80-[address] [facility] Mean corpuscular hemoglobin (MCH) determinationOrdered By: Amy Viramontes on 06-23-2025 MCH (RBC) [Entitic mass] 31.4 pg 27.0-32.0 [facility] Monocyte percentageOrdered B y: Amy Viramontes on 06-23-2025 Monocytes/100 WBC (Bld) 10.4 % High 0-[address] [facility] Neutrophil percentageOrdered By: Amy Viramontes on 06-23-2025 Neutrophils/100 WBC (Bld) 68.2 % 47-70 [facility] No Panel InformationOrdered By: Amy Viramontes on 06-23-2025 1+ [facility] 41 U/L High <38 [facility] Platelet countOrdered By: Terra Viramontes on 06-23-2025 Platelets (Bld) [#/Vol] 146 10*3/uL Low 150-450 [facility] Platelet estimateOrdered By: Amy Viramontes on 06-23-2025 Platelets LM Ql (Bld) SLT DEC ADEQ [facility] Potassium measurement (mass/ volume)Ordered By: Amy Viramontes on 06-23-2025 Potassium (Unsp spec) [Mass/Vol] 3.5 mmol/L 3.3-5.1 [facility] Prothrombin timeOrdered By: Amy Viramontes on 06-23-2025 PT Coag (PPP) [Time] 25.6 s High 11.7-14.9 [facility] RBC Auto (Bld) [#/Vol]Ordere d By: Amy Viramontes on 06-23-2025 RBC (Bld) [#/Vol] 3.41 10*6/uL Low 4.6-6.2 [facility] Serum creatinine measurement (mass/volume)Ordered By: Amy Viramontes on 06-23-2025 Creatinine [Mass/Vol] 5.88 mg/dL High 0.70-1.20 [facility] Serum globulin measurementOr dered By: Amy Viramontes on 06-23-2025 Globulin (S) [Mass/Vol] 3.8 g/dL 2.2-4.2 [facility] Serum glucose measurement (m ass/volume)Ordered By: Amy Viramontes on 06-23-2025 Glucose [Mass/Vol] 103 mg/dL High 70-99 [facility] Serum or plasma C reactive p rotein measurement (mass/volume)Ordered By: Remus Viramontes on 06-23-2025 CRP [Mass/Vol] 122.00 mg/L High 0.0-3.0 [facility] Serum or plasma alanine lorenzana otransferase (ALT) measurementOrdered By: Amy Viramontes on 06-23-2025 ALT [Catalytic activity/Vol] 17 U/L <47 [facility] Serum or plasma albumin khalif urement (mass/volume)Ordered By: Amy Viramontes on 06-23-2025 Albumin [Mass/Vol] 3.4 g/dL 3.4-4.8 [facility] Serum or plasma albumin/glob ulin mass ratioOrdered By: Remus Viramontes on 06-23-2025 Albumin/Globulin [Mass ratio] 0.9 {ratio} 0.9-2.4 [facility] Serum or plasma alkaline guille sphatase measurementOrdered By: Amy Viramontes on 06-23-2025 ALP [Catalytic activity/Vol] 515 U/L High 40-129 [facility] Serum or plasma calcium khalif urement (mass/volume)Ordered By: Remus Viramontes on 06-23-2025 Calcium [Mass/Vol] 9.5 mg/dL 7.6-11.0 [facility] Serum or plasma urea nitroge n measurement (mass/volume)Ordered By: Remus Viramontes on 06-23-2025 Urea nitrogen [Mass/Vol] 43 mg/dL High 4-19 [facility] Sodium levelOrdered By: Eileen Viramontes on 06-23-2025 Sodium [Moles/Vol] 135 mmol/L 133-145 [facility] Total proteinOrdered By: Rem us Verito on 06-23-2025 Protein [Mass/Vol] 7.2 g/dL 5.9-8.4 [facility] White blood cell (WBC) count Ordered By: Amy Pastornaomie on 06-23-2025 WBC (Bld) [#/Vol] 12.0 10*3/uL High 4.4-11.0 [facility] Absolute lymphocyte countOrd ered By: Pako Mendoza on 06-14-2025 Lymphocytes Auto (Unsp spec) [#/Vol] 2.16 10*3/uL 0.83-4.51 [facility] Activated partial thrombopla stin time (aPTT) in platelet poor plasma by coagulation aOrdered By: Pako Mendoza on 06-14-2025 aPTT Coag (PPP) [Time] 98.5 s High 24.1-36.2 [facility] Anion gap in Serum or Plasma Ordered By: Pako Mendoza on 06-14-2025 Anion gap [Moles/Vol] 17 mmol/L High 5-15 [facility] Automated lymphocyte count a s percentage of total leukocytesOrdered By: Pako Mendoza on 06-14-2025 Lymphocytes/100 WBC Auto (Unsp spec) 18.8 % Low 19-41 [facility] BUN/creatinine ratioOrdered By: Pako Mendoza on 06-14-2025 Urea nitrogen/Creatinine [Mass ratio] 7.7 mg/mg Low 10-20 [facility] Basophil percentageOrdered B y: Pako Mendoza on 06-14-2025 Basophils/100 WBC (Bld) 0.6 % 0-[address] [facility] Bilirubin, totalOrdered By: Pako Mendoza on 06-14-2025 Bilirubin [Mass/Vol] 0.67 mg/dL 0.00-1.30 [facility] Carbon dioxide, total [Moles /volume] in Central venous bloodOrdered By: Pako Mendoza on 06-14-2025 CO2 [Moles/Vol] 26.6 mmol/L 21.0-32.0 [facility] Chloride assayOrdered By: Mario Mendoza on 06-14-2025 Chloride [Moles/Vol] 92 mmol/L Low 98-[address] [facility] Eosinophil percentageOrdered By: Pako Mendoza on 06-14-2025 Eosinophils/100 WBC (Bld) 5.6 % High 0-5 [facility] Erythrocyte distribution wid th ratioOrdered By: Pako Mendoza on 06-14-2025 Erythrocyte distribution width (RBC) [Ratio] 19.0 % High 11.6-14.6 [facility] Erythrocyte distribution wid th standard deviationOrdered By: Pako Mendoza on 06-14-2025 Erythrocyte distribution width (RBC) [Ratio] 68.3 fl High 35.1-43.9 [facility] Glomerular filtration rate ( GFR) estimation/1.73 sq m using serum, plasma, or whole bOrdered By: Pako Mendoza on 06-14-2025 GFR/1.73 sq M.predicted among non-blacks MDRD (S/P/Bld) [Vol rate/Area] 8 mL/min/{1.73_m2} Low >60 [facility] Hematocrit Auto (Bld) [Volum e fraction]Ordered By: Pako Mendoza on 06-14-2025 Hematocrit (Bld) [Volume fraction] 29.9 % Low 40-54 [facility] Hemoglobin measurementOrdere d By: Pako Mendoza on 06-14-2025 Hemoglobin (Bld) [Mass/Vol] 9.5 g/dL Low 13.0-16.5 [facility] Immature granulocytes/100 WB C Auto (Bld)Ordered By: Pako Mendoza on 06-14-2025 Immature granulocytes/100 WBC (Bld) 0.300 % 0.0-0.9 [facility] MCV (mean corpuscular volume ) determinationOrdered By: Pako Mendoza on 06-14-2025 MCV (RBC) [Entitic vol] 98.7 fL High 80-[address] [facility] Mean corpuscular hemoglobin (MCH) determinationOrdered By: Pako Mendoza 06-14-2025 MCH (RBC) [Entitic mass] 31.4 pg 27.0-32.0 [facility] Monocyte percentageOrdered B y: Pako Mendoza on 06-14-2025 Monocytes/100 WBC (Bld) 9.8 % 0-[address] [facility] Neutrophil percentageOrdered By: Pako Mendoza on 06-14-2025 Neutrophils/100 WBC (Bld) 64.9 % 47-70 [facility] No Panel InformationOrdered By: Pako Mendoza on 06-14-2025 1+ [facility] 49 U/L High <38 [facility] Platelet countOrdered By: Mario Mendoza on 06-14-2025 Platelets (Bld) [#/Vol] 216 10*3/uL 150-450 [facility] Potassium measurement (mass/ volume)Ordered By: Pako Mendoza on 06-14-2025 Potassium (Unsp spec) [Mass/Vol] 3.7 mmol/L 3.3-5.1 [facility] Prothrombin timeOrdered By: Pako Mendoza on 06-14-2025 PT Coag (PPP) [Time] 24.2 s High 11.7-14.9 [facility] RBC Auto (Bld) [#/Vol]Ordere d By: Pako Mendoza on 06-14-2025 RBC (Bld) [#/Vol] 3.03 10*6/uL Low 4.6-6.2 [facility] Serum creatinine measurement (mass/volume)Ordered By: Pako Mendoza on 06-14-2025 Creatinine [Mass/Vol] 6.37 mg/dL High 0.70-1.20 [facility] Serum globulin measurementOr dered By: Pako Mendoza on 06-14-2025 Globulin (S) [Mass/Vol] 4.0 g/dL 2.2-4.[address] [facility] Serum glucose measurement (m ass/volume)Ordered By: Pako Mendoza on 06-14-2025 Glucose [Mass/Vol] 99 mg/dL 70-99 [facility] Serum or plasma alanine lorenzana otransferase (ALT) measurementOrdered By: Pako Mendoza on 06-14-2025 ALT [Catalytic activity/Vol] 20 U/L <47 [facility] Serum or plasma albumin khalif urement (mass/volume)Ordered By: Pako Mendoza on 06-14-2025 Albumin [Mass/Vol] 3.3 g/dL Low 3.4-4.8 [facility] Serum or plasma albumin/glob ulin mass ratioOrdered By: Pako Mendoza on 06-14-2025 Albumin/Globulin [Mass ratio] 0.8 {ratio} Low 0.9-2.4 [facility] Serum or plasma alkaline guille sphatase measurementOrdered By: Pako Mendoza on 06-14-2025 ALP [Catalytic activity/Vol] 508 U/L High 40-129 [facility] Serum or plasma calcium khalif urement (mass/volume)Ordered By: Pako Mendoza on 06-14-2025 Calcium [Mass/Vol] 9.6 mg/dL 7.6-11.0 [facility] Serum or plasma urea nitroge n measurement (mass/volume)Ordered By: Pako Mendoza on 06-14-2025 Urea nitrogen [Mass/Vol] 49 mg/dL High 4-19 [facility] Sodium levelOrdered By: Pako Mendoza on 06-14-2025 Sodium [Moles/Vol] 136 mmol/L 133-145 [facility] Total proteinOrdered By: Desiree Mendoza on 06-14-2025 Protein [Mass/Vol] 7.2 g/dL 5.9-8.4 [facility] Venous blood ammonia measure mentOrdered By: Pako Mendoza on 06-14-2025 Ammonia (P) [Moles/Vol] 45.0 umol/L 16-60 [facility] White blood cell (WBC) count Ordered By: Pako Mendoza on 06-14-2025 WBC (Bld) [#/Vol] 11.5 10*3/uL High 4.4-11.0 [facility] Prothrombin timeOrdered By: Jane Torres on 06-11-2025 PT Coag (PPP) [Time] 27.9 s High 11.7-14.9 [facility] No Panel InformationOrdered By: Jane Torres on 06-10-2025 4.7 [facility] No Panel InformationOrdered By: Jane Torres on 06-08-2025 4.4 [facility] Prothrombin timeOrdered By: Jane Torres on 06-01-2025 PT Coag (PPP) [Time] 30.9 s High 11.7-14.9 [facility] No Panel InformationOrdered By: Niels Flores on 05-29-2025 4.0 [facility] Absolute lymphocyte countOrd ered By: Karthikeyan Turner on 05-27-2025 Lymphocytes Auto (Unsp spec) [#/Vol] 1.55 10*3/uL 0.83-4.51 [facility] Anion gap in Serum or Plasma Ordered By: Karthikeyan Turner on 05-27-2025 Anion gap [Moles/Vol] 17 mmol/L High 5-15 [facility] Automated lymphocyte count a s percentage of total leukocytesOrdered By: Karthikeyan Turner on 05-27-2025 Lymphocytes/100 WBC Auto (Unsp spec) 14.9 % Low 19-41 [facility] BUN/creatinine ratioOrdered By: Karthikeyan Turner on 05-27-2025 Urea nitrogen/Creatinine [Mass ratio] 7.3 mg/mg Low 10-20 [facility] Basophil percentageOrdered B y: Karthikeyan Turner on 05-27-2025 Basophils/100 WBC (Bld) 0.6 % 0-[address] [facility] Bilirubin, totalOrdered By: Karthikeyan Turner on 05-27-2025 Bilirubin [Mass/Vol] 0.64 mg/dL 0.00-1.30 [facility] Carbon dioxide, total [Moles /volume] in Central venous bloodOrdered By: Karthikeyan Turner on 05-27-2025 CO2 [Moles/Vol] 25.4 mmol/L 21.0-32.0 [facility] Chloride assayOrdered By: Holly Tunrer on 05-27-2025 Chloride [Moles/Vol] 94 mmol/L Low 98-108 [facility] Eosinophil percentageOrdered By: Karthikeyan Turner on 05-27-2025 Eosinophils/100 WBC (Bld) 3.1 % 0-5 [facility] Erythrocyte distribution wid th ratioOrdered By: Karthikeyan Turner on 05-27-2025 Erythrocyte distribution width (RBC) [Ratio] 17.7 % High 11.6-14.6 [facility] Erythrocyte distribution wid th standard deviationOrdered By: Karthikeyan Turner on 05-27-2025 Erythrocyte distribution width (RBC) [Ratio] 62.8 fl High 35.1-43.9 [facility] Glomerular filtration rate ( GFR) estimation/1.73 sq m using serum, plasma, or whole bOrdered By: Karthikeyan Turner on 05-27-2025 GFR/1.73 sq M.predicted among non-blacks MDRD (S/P/Bld) [Vol rate/Area] 9 mL/min/{1.73_m2} Low >60 [facility] Hematocrit Auto (Bld) [Volum e fraction]Ordered By: Karthikeyan Turner on 05-27-2025 Hematocrit (Bld) [Volume fraction] 26.8 % Low 40-54 [facility] Hemoglobin measurementOrdere d By: Karthikeyan Turner on 05-27-2025 Hemoglobin (Bld) [Mass/Vol] 8.3 g/dL Low 13.0-16.5 [facility] Immature granulocytes/100 WB C Auto (Bld)Ordered By: Karthikeyan Turner on 05-27-2025 Immature granulocytes/100 WBC (Bld) 0.700 % 0.0-0.9 [facility] Iron measurement (mass/mass) Ordered By: Karthikeyan Turner on 05-27-2025 Iron (Unsp spec) [Mass/Mass] 42 ug/dL Low 65-175 [facility] MCV (mean corpuscular volume ) determinationOrdered By: Karthikeyan Turner on 05-27-2025 MCV (RBC) [Entitic vol] 98.2 fL High 80-[address] [facility] Mean corpuscular hemoglobin (MCH) determinationOrdered By: Karthikeyan Turner on 05-27-2025 MCH (RBC) [Entitic mass] 30.4 pg 27.0-32.0 [facility] Monocyte percentageOrdered B y: Karthikeyan Turner on 05-27-2025 Monocytes/100 WBC (Bld) 11.0 % High 0-[address] [facility] Neutrophil percentageOrdered By: Karthikeyan Turner on 05-27-2025 Neutrophils/100 WBC (Bld) 69.7 % 47-70 [facility] No Panel InformationOrdered By: Karthikeyan Turner on 05-27-2025 32 U/L <38 [facility] 148 ug/dL Low 228-428 [facility] No Panel InformationOrdered By: Jane Torres on 05-27-2025 6.0 High [facility] Platelet countOrdered By: Holly Turner on 05-27-2025 Platelets (Bld) [#/Vol] 344 10*3/uL 150-450 [facility] Potassium measurement (mass/ volume)Ordered By: Karthikeyan Turner on 05-27-2025 Potassium (Unsp spec) [Mass/Vol] 3.4 mmol/L 3.3-5.1 [facility] Prothrombin timeOrdered By: Karthikeyan Turner on 05-27-2025 PT Coag (PPP) [Time] 37.6 s High 11.7-14.9 [facility] RBC Auto (Bld) [#/Vol]Ordere d By: Karthikeyan Turner on 05-27-2025 RBC (Bld) [#/Vol] 2.73 10*6/uL Low 4.6-6.2 [facility] Serum creatinine measurement (mass/volume)Ordered By: Karthikeyan Turner on 05-27-2025 Creatinine [Mass/Vol] 5.97 mg/dL High 0.70-1.20 [facility] Serum globulin measurementOr dered By: Karthikeyan Turner on 05-27-2025 Globulin (S) [Mass/Vol] 4.7 g/dL High 2.2-4.[address] [facility] Serum glucose measurement (m ass/volume)Ordered By: Karthikeyan Turner on 05-27-2025 Glucose [Mass/Vol] 130 mg/dL High 70-99 [facility] Serum or plasma alanine lorenzana otransferase (ALT) measurementOrdered By: Karthikeyan Turner on 05-27-2025 ALT [Catalytic activity/Vol] 21 U/L <47 [facility] Serum or plasma albumin khalif urement (mass/volume)Ordered By: Karthikeyan Turner on 05-27-2025 Albumin [Mass/Vol] 3.3 g/dL Low 3.4-4.8 [facility] Serum or plasma albumin/glob ulin mass ratioOrdered By: Karthikeyan Turner on 05-27-2025 Albumin/Globulin [Mass ratio] 0.7 {ratio} Low 0.9-2.4 [facility] Serum or plasma alkaline guille sphatase measurementOrdered By: Karthikeyan Turner on 05-27-2025 ALP [Catalytic activity/Vol] 583 U/L High 40-129 [facility] Serum or plasma calcium khalif urement (mass/volume)Ordered By: Karthikeyan Turner on 07-09-2025 Calcium [Mass/Vol] 9.9 mg/dL 7.6-11.0 [facility] Serum or plasma ferritin vivienne surement (mass/volume)Ordered By: Karthikeyan Turner on 05-27-2025 Ferritin [Mass/Vol] 1558 ng/mL High 37-417 [facility] Serum or plasma iron saturat ion measurement (mass fraction)Ordered By: Karthikeyan Turner on 05-27-2025 Iron saturation [Mass fraction] 22.1 % 9-55 [facility] Serum or plasma urea nitroge n measurement (mass/volume)Ordered By: Karthikeyan Turner on 05-27-2025 Urea nitrogen [Mass/Vol] 44 mg/dL High 4-19 [facility] Sodium levelOrdered By: Lebron Turner on 05-27-2025 Sodium [Moles/Vol] 137 mmol/L 133-145 [facility] Total proteinOrdered By: Lul Turner on 05-27-2025 Protein [Mass/Vol] 8.0 g/dL 5.9-8.4 [facility] White blood cell (WBC) count Ordered By: Karthikeyan Turner on 05-27-2025 WBC (Bld) [#/Vol] 10.4 10*3/uL 4.4-11.0 [facility] No Panel InformationOrdered By: Jane Torres on 05-25-2025 5.7 [facility] No Panel InformationOrdered By: Niels Flores on 05-18-2025 3.2 [facility] No Panel InformationOrdered By: Jane Torres on 05-13-2025 2.1 [facility] No Panel InformationOrdered By: Jane Torres on 05-11-2025 1.9 [facility] No Panel InformationOrdered By: Jane Torres on 05-07-2025 2.5 [facility] No Panel InformationOrdered By: Jane Torres on 05-04-2025 4.8 [facility] No Panel InformationOrdered By: Jane Torres on 04-28-2025 4.2 [facility] No Panel InformationOrdered By: Jane Torres on 04-27-2025 2.4 [facility] No Panel Informationon 04-20 3.2 [facility] No Panel InformationOrdered By: Jane Torres on 04-13-2025 2.3 [facility] No Panel InformationOrdered By: Jane Torres on 04-06-2025 2.1 [facility] No Panel InformationOrdered By: Jane Torres on 03-30-2025 2.8 [facility] No Panel InformationOrdered By: Jane Torres on 03-25-2025 2.5 [facility] No Panel InformationOrdered By: Jane Torres on 03-23-2025 1.7 [facility] No Panel Informationon 03-16 2.2 [facility] No Panel InformationOrdered By: Jane Torres on 03-12-2025 3.5 [facility] No Panel InformationOrdered By: Jane Torres on 03-10-2025 4.7 [facility] No Panel InformationOrdered By: Esa Mckeon on 03-09-2025 4.5 [facility] Laboratory - Coagulationon 0 03-06-2025 INR Coag (Bld) [Relative time] 3.2 {INR} High 0.9 - 1.1 [facility] PT Coag (PPP) [Time] 32.[address] [facility] No Panel Informationon 03-06 [facility] 3.2 [facility] Interpretation and review of laboratory results Abnormal [facility] Radiology Study observation (narrative) [facility] PROTIME-INRon 03-06-2025 INR Coag (PPP) [Relative time] 3.2 {INR} High 0.9-1.1 [facility] Comment on above: Performed By: #### X M #### [facility] (DEFAULT) [address] [place] [address] PT Coag (PPP) [Time] 32.9 s High 11.9-14.2 [facility] Comment on above: Performed By: #### X M #### [facility] (DEFAULT) [address] [place] [address] CALCIUMon 03-05-2025 Calcium [Mass/Vol] 9.4 mg/dL Normal 8.6-10.5 [facility] Comment on above: Performed By: #### X M #### [facility] (DEFAULT) [address] [place] [address] 16574 CBC,PLATELETSon 03-05-2025 Hematocrit (Bld) [Volume fraction] 34.2 % Low 39.6-48.8 [facility] Comment on above: Performed By: #### H EMOGC #### [facility] (DEFAULT) [address] [place] [address] 94659 Hemoglobin (Bld) [Mass/Vol] 10.6 g/dL Low 13.4-16.8 [facility] Comment on above: Performed By: #### H EMOGC #### [facility] (DEFAULT) [address] [place] [address] 44883 MCV (RBC) [Entitic vol] 104.3 fL High 79.0-94.5 [facility] Comment on above: Performed By: #### H EMOGC #### [facility] (DEFAULT) [address] [place] [address] 00501 Mean Cell Hgb 32.3 pg Normal 26.1-33.3 [facility] Comment on above: Performed By: #### H EMOGC #### [facility] (DEFAULT) [address] [place] [address] 24441 Mean Cell Hgb Conc 31.0 g/dL Low 31.9-36.5 [facility] Comment on above: Performed By: #### H EMOGC #### [facility] (DEFAULT) [address] [place] [address] 91282 Platelet mean volume (Bld) [Entitic vol] 9.2 fL Normal 8.7-12.3 [facility] Comment on above: Performed By: #### H EMOGC #### [facility] (DEFAULT) [address] [place] [address] 68927 Platelets (Bld) [#/Vol] 303 10*3/uL Normal 146-337 [facility] Comment on above: Performed By: #### H EMO #### [facility] (DEFAULT) [address] [place] [address] 92037 RBC (Bld) [#/Vol] 3.28 10*6/uL Low 4.38-5.83 [facility] Comment on above: Performed By: #### H EMO #### [facility] (DEFAULT) [address] [place] [address] 34388 RBC Distribution 17.1 % High 10.9-14.3 [facility] Comment on above: Performed By: #### H EMO #### [facility] (DEFAULT) [address] [place] [address] 25037 WBC (Bld) [#/Vol] 10.65 10*3/uL High 3.73-10.10 [facility] Comment on above: Performed By: #### H [facility] #### [facility] (DEFAULT) [address] [place] [address] 94305 CHEM 7 (LYTES,BUN,CREA,GLUC) on 03-05-2025 Anion gap [Moles/Vol] 19 mmol/L High 7-17 [facility] Comment on above: Performed By: #### X M #### [facility] (DEFAULT) [address] [place] [address] 74210 Chloride [Moles/Vol] 100 mmol/L Normal 98-108 [facility] Comment on above: Performed By: #### X M #### [facility] (DEFAULT) [address] [place] [address] 17184 CO2 [Moles/Vol] 25 mmol/L Normal 21-31 [facility] Comment on above: Performed By: #### X M #### [facility] (DEFAULT) [address] [place] [address] 51579 Creatinine [Mass/Vol] 5.35 mg/dL High 0.70-1.30 [facility] Comment on above: Performed By: #### X M #### [facility] (DEFAULT) [address] [place] [address] 77460 GFR/1.73 sq M.predicted among non-blacks MDRD (S/P/Bld) [Vol rate/Area] 10 mL/min/{1.73_m2} Low >=60 [facility] Comment on above: Result Comment: Repo rted eGFR is based on the CKD-EPI 2020 equation using creatinine, age, and sex. Performed By: #### X M #### [facility] (DEFAULT) [address] [place] [address] 06660 Glucose [Mass/Vol] 95 mg/dL Normal Nonfastin -179 mg/dL; Fastin-99 [facility] Comment on above: Performed By: #### X M #### [facility] (DEFAULT) [address] [place] [address] 95586 Osmolality [Osmolality] 297 mosm/kg Normal 278-305 [facility] Comment on above: Performed By: #### X M #### [facility] (DEFAULT) [address] [place] [address] 93915 Potassium [Moles/Vol] 5.1 mmol/L High 3.5-5.0 [facility] Comment on above: Performed By: #### X M #### [facility] (DEFAULT) [address] [place] [address] 01596 Sodium [Moles/Vol] 139 mmol/L Normal 135-145 [facility] Comment on above: Performed By: #### X M #### [facility] (DEFAULT) [address] [place] [address] 95001 Urea nitrogen [Mass/Vol] 26 mg/dL High 7-25 [facility] Comment on above: Performed By: #### X M #### [facility] (DEFAULT) [address] [place] [address] 89011 Urea nitrogen/Creatinine [Mass ratio] 5 mg/mg Normal [facility] Comment on above: Performed By: #### X M #### [facility] (DEFAULT) [address] [place] [address] 56450 Laboratory - Chemistry and C hemistry - challengeon 03-05-2025 Anion gap [Moles/Vol] 19 mmol/L High 7 - 17 mmol/L [facility] Calcium [Mass/Vol] 9.4 mg/dL 8.6 - 10. 5 mg/dL [facility] Chloride [Moles/Vol] 100 mmol/L 98 - 10 8 mmol/L [facility] CO2 [Moles/Vol] 25 mmol/L 21 - 31 mmol/L [facility] Creatinine [Mass/Vol] 5.35 mg/dL High 0.70 - 1.30 mg/dL [facility] Glucose [Mass/Vol] 95 mg/dL 70 - 179 mg/dL [facility] Magnesium [Mass/Vol] 2 mg/dL 1.6 - 2 .6 mg/dL [facility] Osmolality Calc [Osmolality] [facility] Phosphate [Mass/Vol] 4.9 mg/dL High 2.2 - 4 .6 mg/dL [facility] Potassium [Moles/Vol] 5.1 mmol/L High 3.5 - 5.0 mmol/L [facility] Sodium [Moles/Vol] 139 mmol/L 135 - 145 mmol/L [facility] Urea nitrogen [Mass/Vol] 26 mg/dL High 7 - 25 mg/dL [facility] Urea nitrogen/Creatinine [Mass ratio] 5 mg/mg [facility] Laboratory - Coagulationon 0 03-05-2025 aPTT Coag (PPP) [Time] 86.9 s High OS [facility] INR Coag (Bld) [Relative time] 2.8 {INR} High 0.9 - 1.1 [facility] PT Coag (PPP) [Time] 29.[address] [facility] Laboratory - Hematology and Cell countson 03-05-2025 Erythrocyte distribution width (RBC) [Ratio] 17.1 % High 10.9 - 14.3 % [facility] Hematocrit (Bld) [Volume fraction] 34.2 % Low 39.6 - 48.8 % [facility] Hemoglobin (Bld) [Mass/Vol] 10.6 g/dL Low 13.4 - 16.8 g/dL [facility] MCH (RBC) [Entitic mass] 32.3 pg 26.1 - 33.[address] [facility] MCHC (RBC) [Mass/Vol] 31 g/dL Low 31.9 - 36.5 g/dL [facility] MCV (RBC) [Entitic vol] 104.3 fL High 79.0 - 94.[address] [facility] Platelet mean volume (Bld) [Entitic vol] 9.2 fL 8.7 - 12.[address] [facility] Platelets (Bld) [#/Vol] 303 10*3/uL 146 - 337 K/uL [facility] RBC (Bld) [#/Vol] 3.28 10*6/uL Low [facility] WBC (Bld) [#/Vol] 10.65 10*3/uL High 3.73 - 10 .10 K/uL [facility] MAGNESIUMon 03-05-2025 Magnesium [Mass/Vol] 2.0 mg/dL Normal 1.6-2.6 [facility] Comment on above: Performed By: #### X M #### [facility] (DEFAULT) [address] [place] [address] No Panel Informationon 03-05 ABO/RH(D) TYPE Positive [facility] Specimen Expiration 03/08/2025 23:59 [facility] Interpretation and review of laboratory results Abnormal [facility] Interpretation and review of laboratory results Abnormal [facility] eGFR, CKD-EPI, Male 10 Low - PINF [facility] Interpretation and review of laboratory results Abnormal [facility] Interpretation and review of laboratory results Normal [facility] Interpretation and review of laboratory results Abnormal [facility] PHOSPHATE, INORGANICon 03-05 Phosphorous 4.9 mg/dL High 2.2-4.6 [facility] Comment on above: Performed By: #### X M #### [facility] (DEFAULT) [address] [place] [address] 25405 PROTIME-INRon 03-05-2025 INR Coag (PPP) [Relative time] 2.8 {INR} High 0.9-1.1 [facility] Comment on above: Performed By: #### X M #### [facility] (DEFAULT) [address] [place] [address] 16509 PT Coag (PPP) [Time] 29.8 s High 11.9-14.2 [facility] Comment on above: Performed By: #### X M #### [facility] (DEFAULT) [address] [place] [address] 75328 PTTon 03-05-2025 aPTT Coag (Bld) [Time] 86.9 s High 24.0-34.3 [facility] Comment on above: Order Comment: After [...] instructions. Performed By: #### X M #### [facility] (DEFAULT) [address] [place] [address] 44672 TYPE AND SCREENon 03-05-2025 ABO/RH(D) TYPE Positive Normal [facility] Comment on above: Performed By: #### X M #### [facility] (DEFAULT) [address] [place] [address] 12466 Specimen Expiration 03/08/2025 23:59 Normal [facility] Comment on above: Performed By: #### X M #### [facility] (DEFAULT) [address] [place] [address] BLOOD CULTUREon 03-04-2025 Bacteria identified Cx Nom (Unsp spec) NO GROWTH DAY 5 OF 5 Normal [facility] Comment on above: Order Comment: 2 Bot tles (1 Set - consists of 1 Aerobic bottle and 1 Anaerobic bottle) -1st Peripheral DrawFor vacutainer method draw: Fill aerobic bottle first, then anaerobic Performed By: #### X M #### [facility] (DEFAULT) [address] [place] [address] 34682 Laboratory - Coagulationon 0 03-04-2025 aPTT Coag (PPP) [Time] 112.5 s High [facility] aPTT Coag (PPP) [Time] 94.9 s High [facility] aPTT Coag (PPP) [Time] 113.6 s High [facility] aPTT Coag (PPP) [Time] 110.5 s High [facility] INR Coag (Bld) [Relative time] 2.4 {INR} High 0.9 - 1.1 [facility] PT Coag (PPP) [Time] 26.[address] [facility] No Panel Informationon 03-04 Interpretation and review of laboratory results Abnormal [facility] Interpretation and review of laboratory results Abnormal [facility] Interpretation and review of laboratory results Abnormal [facility] Interpretation and review of laboratory results Abnormal [facility] Interpretation and review of laboratory results Abnormal [facility] Radiology Study observation (narrative) [facility] PROTIME-INRon 03-04-2025 INR Coag (PPP) [Relative time] 2.4 {INR} High 0.9-1.1 [facility] Comment on above: Performed By: #### X M #### [facility] (DEFAULT) [address] [place] [address] PT Coag (PPP) [Time] 26.1 s High 11.9-14.2 [facility] Comment on above: Performed By: #### X M #### [facility] (DEFAULT) [address] [place] [address]77 PTTon 03-04-2025 aPTT Coag (Bld) [Time] 112.5 s High 24.0-34.3 [facility] Comment on above: Order Comment: After [...] Performed By: #### X M #### [facility] (DEFAULT) [address] [address] aPTT Coag (Bld) [Time] 94.9 s High 24.0-34.3 [facility] Comment on above: Order Comment: After [...] Performed By: #### X M #### [facility] (DEFAULT) [address] [address] aPTT Coag (Bld) [Time] 113.6 s High 24.0-34.3 [facility] Comment on above: Order Comment: After [...] Performed By: #### X M #### [facility] (DEFAULT) [address] [address] aPTT Coag (Bld) [Time] 110.5 s High 24.0-34.3 [facility] Comment on above: Order Comment: After [...] Performed By: #### X M #### [facility] (DEFAULT) [address] [address] BLOOD CULTUREon 03-03-2025 Bacteria identified Cx Nom (Unsp spec) NO GROWTH DAY 5 OF 5 Normal [facility] Comment on above: Order Comment: 2 Bot tles (1 Set - consists of 1 Aerobic bottle and 1 Anaerobic bottle) -1st Peripheral DrawFor vacutainer method draw: Fill aerobic bottle first, then anaerobicResults may be compromised due to LOW VOLUME of the BACT\\ALERT bottle UNDER 8mLs, which can be associated with decreased sensitivity. The optimal blood volume is 8-10mLs per aerobic/anaerobic blood culture bottle. Performed By: #### X M #### [facility] (DEFAULT) [address] [place] [address] CALCIUMon 03-03-2025 Calcium [Mass/Vol] 9.0 mg/dL Normal 8.6-10.5 [facility] Comment on above: Performed By: #### X M #### [facility] (DEFAULT) [address] [place] [address]16 CBC,PLATELETSon 03-03-2025 Hematocrit (Bld) [Volume fraction] 35.1 % Low 39.6-48.8 [facility] Comment on above: Performed By: #### X M #### [facility] (DEFAULT) [address] [place] [address] Hemoglobin (Bld) [Mass/Vol] 10.9 g/dL Low 13.4-16.8 [facility] Comment on above: Performed By: #### X M #### [facility] (DEFAULT) [address] [place] [address]140 MCV (RBC) [Entitic vol] 104.5 fL High 79.0-94.5 [facility] Comment on above: Performed By: #### X M #### [facility] (DEFAULT) [address] [place] [address] 10569 Mean Cell Hgb 32.4 pg Normal 26.1-33.3 [facility] Comment on above: Performed By: #### X M #### [facility] (DEFAULT) [address] [place] [address]858 Mean Cell Hgb Conc 31.1 g/dL Low 31.9-36.5 [facility] Comment on above: Performed By: #### X M #### [facility] (DEFAULT) [address] [place] [address] 34205 Platelet mean volume (Bld) [Entitic vol] 9.5 fL Normal 8.7-12.3 [facility] Comment on above: Performed By: #### X M #### [facility] (DEFAULT) [address] [place] [address]310 Platelets (Bld) [#/Vol] 288 10*3/uL Normal 146-337 [facility] Comment on above: Performed By: #### X M #### [facility] (DEFAULT) [address] [place] [address] 08825 RBC (Bld) [#/Vol] 3.36 10*6/uL Low 4.38-5.83 [facility] Comment on above: Performed By: #### X M #### [facility] (DEFAULT) [address] [place] [address] 59479 RBC Distribution 17.4 % High 10.9-14.3 [facility] Comment on above: Performed By: #### X M #### [facility] (DEFAULT) [address] [place] [address]72 WBC (Bld) [#/Vol] 8.86 10*3/uL Normal 3.73-10.10 [facility] Comment on above: Performed By: #### X M #### [facility] (DEFAULT) [address] [place] [address]1968 CHEM 7 (LYTES,BUN,CREA,GLUC) on 03-03-2025 Anion gap [Moles/Vol] 18 mmol/L High 7-17 [facility] Comment on above: Performed By: #### X M #### [facility] (DEFAULT) [address] [place] [address]00 Chloride [Moles/Vol] 97 mmol/L Low 98-108 [facility] Comment on above: Performed By: #### X M #### [facility] (DEFAULT) [address] [place] [address] 67283 CO2 [Moles/Vol] 25 mmol/L Normal 21-31 [facility] Comment on above: Performed By: #### X M #### [facility] (DEFAULT) [address] [place] [address]52 Creatinine [Mass/Vol] 5.02 mg/dL High 0.70-1.30 [facility] Comment on above: Performed By: #### X M #### [facility] (DEFAULT) [address] [address] GFR/1.73 sq M.predicted among non-blacks MDRD (S/P/Bld) [Vol rate/Area] 11 mL/min/{1.73_m2} Low >=60 [facility] Comment on above: Result Comment: Repo rted eGFR is based on the CKD-EPI 2020 equation using creatinine, age, and sex. Performed By: #### X M #### [facility] (DEFAULT) [address] [address] Glucose [Mass/Vol] 89 mg/dL Normal Nonfastin -179 mg/dL; Fastin-99 [facility] Comment on above: Performed By: #### X M #### [facility] (DEFAULT) [address] [place] [address]207 Osmolality [Osmolality] 288 mosm/kg Normal 278-305 [facility] Comment on above: Performed By: #### X M #### [facility] (DEFAULT) [address] [address] Potassium [Moles/Vol] 4.6 mmol/L Normal 3.5-5.0 [facility] Comment on above: Performed By: #### X M #### [facility] (DEFAULT) [address] [place] [address] 20093 Sodium [Moles/Vol] 135 mmol/L Normal 135-145 [facility] Comment on above: Performed By: #### X M #### [facility] (DEFAULT) [address] [address] Urea nitrogen [Mass/Vol] 24 mg/dL Normal 7-25 [facility] Comment on above: Performed By: #### X M #### [facility] (DEFAULT) [address] [address] Urea nitrogen/Creatinine [Mass ratio] 5 mg/mg Normal [facility] Comment on above: Performed By: #### X M #### [facility] (DEFAULT) [address] [place] [address]44 IRON/IRON BINDING/TRANSFERRI Non 03-03-2025 Iron [Mass/Vol] 59 ug/dL Normal 40-174 [facility] Comment on above: Performed By: #### X M #### [facility] (DEFAULT) [address] [place] [address] Iron Saturation 24 % Normal 20-55 [facility] Comment on above: Performed By: #### X M #### [facility] (DEFAULT) [address] [place] [address] 65570 Total Iron Binding Capacity 241 mcg/dL Low 250-425 [facility] Comment on above: Performed By: #### X M #### [facility] (DEFAULT) [address] [place] [address]878 Transferrin [Mass/Vol] 193 mg/dL Low 200-400 [facility] Comment on above: Performed By: #### X M #### [facility] (DEFAULT) [address] [place] [address] Laboratory - Chemistry and C hemistry - challengeon 03-03-2025 Iron [Mass/Vol] 59 ug/dL [facility] Iron binding capacity [Mass/Vol] [address] [facility] Iron saturation [Mass fraction] 24 % 20 - 55 % [facility] Transferrin [Mass/Vol] 193 mg/dL Low 200 - 400 mg/dL [facility] Anion gap [Moles/Vol] 18 mmol/L High 7 - 17 mmol/L [facility] Chloride [Moles/Vol] 97 mmol/L Low 98 - 10 8 mmol/L [facility] CO2 [Moles/Vol] 25 mmol/L 21 - 31 mmol/L [facility] Creatinine [Mass/Vol] 5.02 mg/dL High 0.70 - 1.30 mg/dL [facility] Glucose [Mass/Vol] 89 mg/dL 70 - 179 mg/dL [facility] Osmolality Calc [Osmolality] 288 [facility] Potassium [Moles/Vol] 4.6 mmol/L 3.5 - 5.0 mmol[facility]L [facility] Sodium [Moles/Vol] 135 mmol/L 135 - 145 [facility]/L [facility] Urea nitrogen [Mass/Vol] 24 mg/dL 7 - 25 mg/dL [facility] Urea nitrogen/Creatinine [Mass ratio] 5 mg/mg [facility] Magnesium [Mass/Vol] 1.9 mg/dL 1.6 - 2 .6 mg/dL [facility] Phosphate [Mass/Vol] 4.5 mg/dL 2.2 - 4 .6 mg/dL [facility] Calcium [Mass/Vol] 9 mg/dL 8.6 - 10. 5 mg/dL [facility] Laboratory - Coagulationon 0 03-03-2025 aPTT Coag (PPP) [Time] 94.8 s High [facility] aPTT Coag (PPP) [Time] 80.8 s High [facility] INR Coag (Bld) [Relative time] 2.1 {INR} High 0.9 - 1.1 [facility] PT Coag (PPP) [Time] 23.6 s [facility] aP[facility] Coag (PPP) [Time] 102.3 s High [facility] Laboratory - Hematology and Cell countson 03-03-2025 Erythrocyte distribution width (RBC) [Ratio] 17.4 % High 10.9 - 14.3 % [facility] Hematocrit (Bld) [Volume fraction] 35.1 % Low 39.6 - 48.8 % [facility] Hemoglobin (Bld) [Mass/Vol] 10.9 g/dL Low 13.4 - 16.8 g/dL [facility] MCH (RBC) [Entitic mass] 32.4 pg 26.1 - 33.3 [facility] MCHC (RBC) [Mass/Vol] 31.1 g/dL Low 31.9 - 36.5 g/dL [facility] MCV (RBC) [Entitic vol] 104.5 fL High 79.0 - 94.[address] [facility] Platelet mean volume (Bld) [Entitic vol] 9.5 fL 8.7 - 12.[address] [facility] Platelets (Bld) [#/Vol] 288 10*3/uL 146 - 337 K/uL [facility] RBC (Bld) [#/Vol] 3.36 10*6/uL Low [facility] WBC (Bld) [#/Vol] 8.86 10*3/uL 3.73 - 10. 10 K/uL [facility] MAGNESIUMon 03-03-2025 Magnesium [Mass/Vol] 1.9 mg/dL Normal 1.6-2.6 [facility] Comment on above: Performed By: #### X M #### [facility] (DEFAULT) [address] [place] [address] No Panel Informationon 03-03 Interpretation and review of laboratory results Abnormal [facility] Interpretation and review of laboratory results Abnormal [facility] Interpretation and review of laboratory results Abnormal [facility] Interpretation and review of laboratory results Abnormal [facility] Interpretation and review of laboratory results Abnormal [facility] eGFR, CKD-EPI, Male 11 Low - PINF [facility] Interpretation and review of laboratory results Abnormal [facility] Interpretation and review of laboratory results Normal [facility] Interpretation and review of laboratory results Abnormal [facility] PHOSPHATE, INORGANICon 03-03 Phosphorous 4.5 mg/dL Normal 2.2-4.6 [facility] Comment on above: Performed By: #### X M #### [facility] (DEFAULT) [address] [place] [address] PROTIME-INRon 03-03-2025 INR Coag (PPP) [Relative time] 2.1 {INR} High 0.9-1.1 [facility] Comment on above: Performed By: #### X M #### [facility] (DEFAULT) [address] [place] [address] PT Coag (PPP) [Time] 23.6 s High 11.9-14.2 [facility] Comment on above: Performed By: #### X M #### [facility] (DEFAULT) [address] [place] [address]75 PTTon 03-03-2025 aPTT Coag (Bld) [Time] 94.8 s High 24.0-34.3 [facility] Comment on above: Order Comment: After [...] Performed By: #### S URGP #### [facility] (DEFAULT) [address] [place] [address]76 aPTT Coag (Bld) [Time] 80.8 s High 24.0-34.3 [facility] Comment on above: Order Comment: After [...] instructions. Performed By: #### X M #### [facility] (DEFAULT) [address] [place] [address]92 aPTT Coag (Bld) [Time] 102.3 s High 24.0-34.3 [facility] Comment on above: Order Comment: After [...] instructions. Performed By: #### X M #### [facility] (DEFAULT) [address] [place] [address] 18545 Bacteria identified Cx Nom ( Bld)Ordered By: Kia Higuera on 03-02-2025 Bacteria identified Cx Nom (Unsp spec) Growth [facility] Bacteria identified Cx Nom (Unsp spec) METHICILLIN RESISTANT STAPHYLOCOCCUS EPIDERMIDIS Abnormal [facility] Interpretation and review of laboratory results Abnormal [facility] Bacteria identified Cx Nom ( Unsp spec)Ordered By: Jaelyn Rodrigez on 03-02-2025 Microscopic observation Other stain Nom (Unsp spec) Neutrophils, Light [facility] Microscopic observation Other stain Nom (Unsp spec) No organisms seen [facility] CHEM 6 (LYTES, BUN CREA)on 0 03-02-2025 Anion gap [Moles/Vol] 21 mmol/L High 7-17 [facility] Comment on above: Performed By: #### X M #### [facility] (DEFAULT) [address] [place] [address] Chloride [Moles/Vol] 97 mmol/L Low 98-108 [facility] Comment on above: Performed By: #### X M #### [facility] (DEFAULT) [address] [place] [address]137 CO2 [Moles/Vol] 24 mmol/L Normal 21-31 [facility] Comment on above: Performed By: #### X M #### [facility] (DEFAULT) [address] [place] [address]62 Creatinine [Mass/Vol] 7.34 mg/dL High 0.70-1.30 [facility] Comment on above: Performed By: #### X M #### [facility] (DEFAULT) [address] [place] [address] 04591 GFR/1.73 sq M.predicted among non-blacks MDRD (S/P/Bld) [Vol rate/Area] 7 mL/min/{1.73_m2} Low >=60 [facility] Comment on above: Result Comment: Repo rted eGFR is based on the CKD-EPI 2020 equation using creatinine, age, and sex. Performed By: #### X M #### [facility] (DEFAULT) [address] [place] [address]401 Potassium [Moles/Vol] 4.6 mmol/L Normal 3.5-5.0 [facility] Comment on above: Performed By: #### X M #### [facility] (DEFAULT) [address] [place] [address] 02768 Sodium [Moles/Vol] 137 mmol/L Normal 135-145 [facility] Comment on above: Performed By: #### X M #### [facility] (DEFAULT) [address] [place] [address] 41671 Urea nitrogen [Mass/Vol] 44 mg/dL High 7-25 [facility] Comment on above: Performed By: #### X M #### [facility] (DEFAULT) [address] [place] [address]709 Urea nitrogen/Creatinine [Mass ratio] 6 mg/mg Normal [facility] Comment on above: Performed By: #### X M #### [facility] (DEFAULT) [address] [place] [address] 23886 HEMOGLOBIN & HEMATOCRITon Hematocrit (Bld) [Volume fraction] 30.8 % Low 39.6-48.8 [facility] Comment on above: Performed By: #### X M #### [facility] (DEFAULT) [address] [place] [address]73 Hemoglobin (Bld) [Mass/Vol] 9.7 g/dL Low 13.4-16.8 [facility] Comment on above: Performed By: #### X M #### [facility] (DEFAULT) [address] [place] [address]684 Laboratory - Chemistry and C hemistry - challengeon 03-02-2025 Anion gap [Moles/Vol] 21 mmol/L High 7 - 17 mmol/L [facility] Chloride [Moles/Vol] 97 mmol/L Low 98 - 10 8 mmol/L [facility] CO2 [Moles/Vol] 24 mmol/L 21 - 31 mmol/L [facility] Creatinine [Mass/Vol] 7.34 mg/dL High 0.70 - 1.30 mg/dL [facility] Potassium [Moles/Vol] 4.6 mmol/L 3.5 - 5.0 mmol/L [facility] Sodium [Moles/Vol] 137 mmol/L 135 - 145 mmol/L [facility] Urea nitrogen [Mass/Vol] 44 mg/dL High 7 - 25 mg/dL [facility] Urea nitrogen/Creatinine [Mass ratio] 6 mg/mg [facility] Laboratory - CoagulationOrde red By: Rae Meza on 03-02-2025 aPTT Coag (PPP) [Time] 88.4 s High [facility] Laboratory - Coagulationon 0 03-02-2025 INR Coag (Bld) [Relative time] 2.1 {INR} High 0.9 - 1.1 [facility] PT Coag (PPP) [Time] 23 s [facility] aP[facility] Coag (PPP) [Time] 61.2 s High [facility] aPTT Coag (PPP) [Time] 130.2 s High [facility] INR Coag (Bld) [Relative time] 1.9 {INR} High 0.9 - 1.1 [facility] PT Coag (PPP) [Time] 21.[address] [facility] Laboratory - CoagulationOrde red By: Jenni Calle on 03-02-2025 aPTT Coag (PPP) [Time] 53 s High [facility] Laboratory - Hematology and Cell countson 03-02-2025 Hematocrit (Bld) [Volume fraction] 30.8 % Low 39.6 - 48.8 % [facility] Hemoglobin (Bld) [Mass/Vol] 9.7 g/dL Low 13.4 - 16.8 g/dL [facility] Laboratory - Microbiology an d Antimicrobial susceptibilityOrdered By: Jaelyn Rodrigez on 03-02-2025 Bacteria identified Cx Nom (Unsp spec) NO GROWTH DAY [address] [facility] No Panel InformationOrdered By: Rae Meza on 03-02-2025 Interpretation and review of laboratory results Abnormal [facility] No Panel Informationon 03-02 Interpretation and review of laboratory results Abnormal [facility] Interpretation and review of laboratory results Abnormal [facility] eGFR, CKD-EPI, Male 7 Low - PINF [facility] Interpretation and review of laboratory results Abnormal [facility] Interpretation and review of laboratory results Abnormal [facility] Interpretation and review of laboratory results Abnormal [facility] ABO/RH(D) TYPE Positive [facility] Specimen Expiration 03/05/2025 05:08 [facility] Interpretation and review of laboratory results Abnormal [facility] No Panel InformationOrdered By: Jenni Calle on 03-02-2025 Interpretation and review of laboratory results Abnormal [facility] PROTIME-INRon 03-02-2025 INR Coag (PPP) [Relative time] 2.1 {INR} High 0.9-1.1 [facility] Comment on above: Performed By: #### X M #### [facility] (DEFAULT) [address] [place] [address]22 PT Coag (PPP) [Time] 23.0 s High 11.9-14.2 [facility] Comment on above: Performed By: #### X M #### [facility] (DEFAULT) [address] [place] [address] 04998 INR Coag (PPP) [Relative time] 1.9 {INR} High 0.9-1.1 [facility] Comment on above: Performed By: #### G EN #### [facility] (DEFAULT) [address] [place] [address]108 PT Coag (PPP) [Time] 21.4 s High 11.9-14.2 [facility] Comment on above: Performed By: #### G EN #### [facility] (DEFAULT) [address] [place] [address] 10873 PTTon 03-02-2025 aPTT Coag (Bld) [Time] 88.4 s High 24.0-34.3 [facility] Comment on above: Order Comment: After [...] instructions. Performed By: #### X M #### [facility] (DEFAULT) [address] [place] [address]69 aPTT Coag (Bld) [Time] 61.2 s High 24.0-34.3 [facility] Comment on above: Order Comment: After [...] Performed By: #### X M #### [facility] (DEFAULT) [address] [place] [address] aPTT Coag (Bld) [Time] 53.0 s High 24.0-34.3 [facility] Comment on above: Order Comment: After [...] Performed By: #### H EMO #### [facility] (DEFAULT) [address] [address] aPTT Coag (Bld) [Time] 130.2 s High 24.0-34.3 [facility] Comment on above: Performed By: #### G EN #### [facility] (DEFAULT) [address] [address] TYPE AND SCREENon 03-02-2025 ABO/RH(D) TYPE Positive Normal [facility] Comment on above: Performed By: #### X M #### [facility] (DEFAULT) [address] [address] Specimen Expiration 03/05/2025 05:08 Normal [facility] Comment on above: Performed By: #### X M #### [facility] (DEFAULT) [address] [place] [address] Laboratoryon 03-01-2025 Methicillin resistance mecA+mecC genes Molgen Ql (Islt/Spec) Detected Abnormal [facility] 0 03-01-2025 aPTT Coag (PPP) [Time] 103.5 s High [facility] aPTT Coag (PPP) [Time] 57.2 s High [facility] Laboratory - CoagulationOrde red By: Flaquita Cook on 03-01-2025 aPTT Coag (PPP) [Time] 102.3 s High [facility] Laboratory - Microbiology an d Antimicrobial susceptibilityon 03-01-2025 C. albicans DNA RENETTA+non-probe Ql (Pos bld culture) Not detected Not Detected [facility] C. glabrata DNA RENETTA+non-probe Ql (Pos bld culture) Not detected [facility] C. krusei DNA RENETTA+non-probe Ql (Pos bld culture) Not detected Not Detected [facility] C. parapsilosis DNA RENETTA+non-probe Ql (Pos bld culture) Not detected Not Detected [facility] C. tropicalis DNA RENETTA+non-probe Ql (Pos bld culture) Not detected Not Detected [facility] E. cloacae complex DNA RENETTA+non-probe Ql (Pos bld culture) Not detected Not Detected [facility] E. coli DNA RENETTA+non-probe Ql (Pos bld culture) Not detected Not Detected [facility] H. influenzae DNA RENETTA+non-probe Ql (Pos bld culture) Not detected Not Detected [facility] K. oxytoca DNA RENETTA+non-probe Ql (Pos bld culture) Not detected Not Detected [facility] L. monocytogenes DNA RENETTA+non-probe Ql (Pos bld culture) Not detected Not Detected [facility] N. meningitidis DNA RENETTA+non-probe Ql (Pos bld culture) Not detected Not Detected [facility] P. aeruginosa DNA RENETTA+non-probe Ql (Pos bld culture) Not detected Not Detected [facility] Proteus sp DNA RENETTA+non-probe Ql (Pos bld culture) Not detected Not Detected [facility] S. agalactiae DNA RENETTA+non-probe Ql (Pos bld culture) Not detected Not Detected [facility] S. aureus DNA RENETTA+non-probe Ql (Pos bld culture) Not detected Not Detected [facility] S. marcescens DNA RENETTA+non-probe Ql (Pos bld culture) Not detected Not Detected [facility] S. pneumoniae DNA RENETTA+non-probe Ql (Pos bld culture) Not detected Not Detected [facility] S. pyogenes DNA RENETTA+non-probe Ql (Pos bld culture) Not detected Not Detected [facility] Staphylococcus sp DNA RENETTA+non-probe Ql (Pos bld culture) Detected Abnormal Not Detected [facility] Streptococcus sp DNA RENETTA+non-probe Ql (Pos bld culture) Not detected Not Detected [facility] No Panel Informationon 03-01 Interpretation and review of laboratory results Abnormal [facility] Acinetobacter calcoaceticus-baumannii complex DNA Not detected Not Detected [facility] Bacteroides fragilis DNA Not detected Not Detected [facility] Marika auris DNA Not detected Not Detected [facility] Cryptococcus jaime/neoformans DNA Not detected Not Detected [facility] Enterobacterales DNA Not detected Not Detected [facility] Enterococcus faecalis DNA Not detected Not Detected [facility] Enterococcus faecium DNA Not detected Not Detected [facility] Interpretation and review of laboratory results Abnormal [facility] Klebsiella aerogenes DNA Not detected Not Detected [facility] Klebsiella pneumoniae group DNA Not detected Not Detected [facility] Salmonella species DNA Not detected Not Detecte d [facility] Staphylococcus epidermidis DNA Detected Abnormal Not Detected [facility] Staphylococcus lugdunensis DNA Not detected Not Detected [facility] Stenotrophomonas maltophilia DNA Not detected Not Detected [facility] Interpretation and review of laboratory results Abnormal [facility] No Panel InformationOrdered By: Flaquita Cook on 03-01-2025 Interpretation and review of laboratory results Abnormal [facility] PTTon 03-01-2025 aPTT Coag (Bld) [Time] 103.5 s High 24.0-34.3 [facility] Comment on above: Order Comment: After [...] instructions. Performed By: #### X M #### [facility] (DEFAULT) [address] [address] aPTT Coag (Bld) [Time] 102.3 s High 24.0-34.3 [facility] Comment on above: Order Comment: After [...] instructions. Performed By: #### S URGP #### [facility] (DEFAULT) [address] [address] aPTT Coag (Bld) [Time] 57.2 s High 24.0-34.3 [facility] Comment on above: Order Comment: After [...] instructions. Performed By: #### P TT #### [facility] (DEFAULT) [address] [place] [address] BACTERIAL CULTURE AND DIRECT SMEAR, LESION, TISSUE, DEVICEon 02-28-2025 Bacteria identified Cx Nom (Unsp spec) NO GROWTH DAY 2 OF 2 Normal [facility] Comment on above: Performed By: #### G EN #### [facility] (DEFAULT) [address] [place] [address] Microscopic observation Gram stain Nom (Unsp spec) [facility] Comment on above: Result Comment: Neut rophils, Light No organisms seen Performed By: #### G EN #### [facility] (DEFAULT) [address] [place] [id number] BLOOD CULTUREon 02-28-2025 Bacteria identified Cx Nom (Unsp spec) Normal [facility] Comment on above: Order Comment: 2 Bot tles (1 Set - consists of 1 Aerobic bottle and 1 Anaerobic bottle) -1st Peripheral DrawFor vacutainer method draw: Fill aerobic bottle first, then anaerobicResults may be compromised due to HIGH VOLUME of the BACT\\ALERT bottle EXCEEDING 10mLs, which can be associated [...] please contact the blood culture area at [phone] within 2 days. Performed By: #### X M #### [facility] (DEFAULT) [address] [address] BLOOD CULTURE IDENTIFICATION PANELon 02-28-2025 Acinetobacter calcoaceticus-baumannii complex DNA Not detected Normal Not Detected [facility] Comment on above: Order Comment: 2 Bot tles (1 Set - consists of 1 Aerobic bottle and 1 Anaerobic bottle) -1st Peripheral DrawFor vacutainer method draw: Fill aerobic bottle first, then anaerobicResults may be compromised due to HIGH VOLUME of the BACT\\ALERT bottle EXCEEDING 10mLs, which can be associated with increased contamination. The optimal blood volume is 8-10mLs per aerobic/anaerobic blood culture bottle.This test was performed using a multiplex nucleic acid test that detects and identifies multiple bacterial and yeast nucleic acids and select genetic determinants associated with antimicrobial resistance. Culture is necessary to confirm susceptibilities and identify organisms not detected by this test. A "Not Detected" result for a genetic marker of antimicrobial resistance does not indicate susceptibility to associated antimicrobial drugs or drug classes. Results should be used in conjunction with other clinical and laboratory findings. Performed By: #### X M #### [facility] (DEFAULT) [address] [place] [address] Bacteroides fragilis DNA Not detected Normal Not Detected [facility] Comment on above: Order Comment: 2 Bot tles (1 Set - consists of 1 Aerobic bottle and 1 Anaerobic bottle) -1st Peripheral DrawFor vacutainer method draw: Fill aerobic bottle first, then anaerobicResults may be compromised due to HIGH VOLUME of the BACT\\ALERT bottle EXCEEDING 10mLs, which can be associated with increased contamination. The optimal blood volume is 8-10mLs per aerobic/anaerobic blood culture bottle.This test was performed using a multiplex nucleic acid test that detects and identifies multiple bacterial and yeast nucleic acids and select genetic determinants associated with antimicrobial resistance. Culture is necessary to confirm susceptibilities and identify organisms not detected by this test. A "Not Detected" result for a genetic marker of antimicrobial resistance does not indicate susceptibility to associated antimicrobial drugs or drug classes. Results should be used in conjunction with other clinical and laboratory findings. Performed By: #### X M #### [facility] (DEFAULT) [address] [address] Marika albicans DNA Not detected Normal Not Detected [facility] Comment on above: Order Comment: 2 Bot tles (1 Set - consists of 1 Aerobic bottle and 1 Anaerobic bottle) -1st Peripheral DrawFor vacutainer method draw: Fill aerobic bottle first, then anaerobicResults may be compromised due to HIGH VOLUME of the BACT\\ALERT bottle EXCEEDING 10mLs, which can be associated with increased contamination. The optimal blood volume is 8-10mLs per aerobic/anaerobic blood culture bottle.This test was performed using a multiplex nucleic acid test that detects and identifies multiple bacterial and yeast nucleic acids and select genetic determinants associated with antimicrobial resistance. Culture is necessary to confirm susceptibilities and identify organisms not detected by this test. A "Not Detected" result for a genetic marker of antimicrobial resistance does not indicate susceptibility to associated antimicrobial drugs or drug classes. Results should be used in conjunction with other clinical and laboratory findings. Performed By: #### X M #### [facility] (DEFAULT) [address] [place] [address] Marika auris DNA Not detected Normal Not Detected [facility] Comment on above: Order Comment: 2 Bot tles (1 Set - consists of 1 Aerobic bottle and 1 Anaerobic bottle) -1st Peripheral DrawFor vacutainer method draw: Fill aerobic bottle first, then anaerobicResults may be compromised due to HIGH VOLUME of the BACT\\ALERT bottle EXCEEDING 10mLs, which can be associated with increased contamination. The optimal blood volume is 8-10mLs per aerobic/anaerobic blood culture bottle.This test was performed using a multiplex nucleic acid test that detects and identifies multiple bacterial and yeast nucleic acids and select genetic determinants associated with antimicrobial resistance. Culture is necessary to confirm susceptibilities and identify organisms not detected by this test. A "Not Detected" result for a genetic marker of antimicrobial resistance does not indicate susceptibility to associated antimicrobial drugs or drug classes. Results should be used in conjunction with other clinical and laboratory findings. Performed By: #### X M #### [facility] (DEFAULT) [address] [address] Marika glabrata DNA Not detected Normal Not Detected [facility] Comment on above: Order Comment: 2 Bot tles (1 Set - consists of 1 Aerobic bottle and 1 Anaerobic bottle) -1st Peripheral DrawFor vacutainer method draw: Fill aerobic bottle first, then anaerobicResults may be compromised due to HIGH VOLUME of the BACT\\ALERT bottle EXCEEDING 10mLs, which can be associated with increased contamination. The optimal blood volume is 8-10mLs per aerobic/anaerobic blood culture bottle.This test was performed using a multiplex nucleic acid test that detects and identifies multiple bacterial and yeast nucleic acids and select genetic determinants associated with antimicrobial resistance. Culture is necessary to confirm susceptibilities and identify organisms not detected by this test. A "Not Detected" result for a genetic marker of antimicrobial resistance does not indicate susceptibility to associated antimicrobial drugs or drug classes. Results should be used in conjunction with other clinical and laboratory findings. Performed By: #### X M #### [facility] (DEFAULT) [address] [place] [address] Marika krusei DNA Not detected Normal Not Detected [facility] Comment on above: Order Comment: 2 Bot tles (1 Set - consists of 1 Aerobic bottle and 1 Anaerobic bottle) -1st Peripheral DrawFor vacutainer method draw: Fill aerobic bottle first, then anaerobicResults may be compromised due to HIGH VOLUME of the BACT\\ALERT bottle EXCEEDING 10mLs, which can be associated with increased contamination. The optimal blood volume is 8-10mLs per aerobic/anaerobic blood culture bottle.This test was performed using a multiplex nucleic acid test that detects and identifies multiple bacterial and yeast nucleic acids and select genetic determinants associated with antimicrobial resistance. Culture is necessary to confirm susceptibilities and identify organisms not detected by this test. A "Not Detected" result for a genetic marker of antimicrobial resistance does not indicate susceptibility to associated antimicrobial drugs or drug classes. Results should be used in conjunction with other clinical and laboratory findings. Performed By: #### X M #### [facility] (DEFAULT) [address] [place] [address] Marika parapsilosis DNA Not detected Normal Not Detected [facility] Comment on above: Order Comment: 2 Bot tles (1 Set - consists of 1 Aerobic bottle and 1 Anaerobic bottle) -1st Peripheral DrawFor vacutainer method draw: Fill aerobic bottle first, then anaerobicResults may be compromised due to HIGH VOLUME of the BACT\\ALERT bottle EXCEEDING 10mLs, which can be associated with increased contamination. The optimal blood volume is 8-10mLs per aerobic/anaerobic blood culture bottle.This test was performed using a multiplex nucleic acid test that detects and identifies multiple bacterial and yeast nucleic acids and select genetic determinants associated with antimicrobial resistance. Culture is necessary to confirm susceptibilities and identify organisms not detected by this test. A "Not Detected" result for a genetic marker of antimicrobial resistance does not indicate susceptibility to associated antimicrobial drugs or drug classes. Results should be used in conjunction with other clinical and laboratory findings. Performed By: #### X M #### [facility] (DEFAULT) [address] [address] Marika tropicalis DNA Not detected Normal Not Detecte d [facility] Comment on above: Order Comment: 2 Bot tles (1 Set - consists of 1 Aerobic bottle and 1 Anaerobic bottle) -1st Peripheral DrawFor vacutainer method draw: Fill aerobic bottle first, then anaerobicResults may be compromised due to HIGH VOLUME of the BACT\\ALERT bottle EXCEEDING 10mLs, which can be associated with increased contamination. The optimal blood volume is 8-10mLs per aerobic/anaerobic blood culture bottle.This test was performed using a multiplex nucleic acid test that detects and identifies multiple bacterial and yeast nucleic acids and select genetic determinants associated with antimicrobial resistance. Culture is necessary to confirm susceptibilities and identify organisms not detected by this test. A "Not Detected" result for a genetic marker of antimicrobial resistance does not indicate susceptibility to associated antimicrobial drugs or drug classes. Results should be used in conjunction with other clinical and laboratory findings. Performed By: #### X M #### [facility] (DEFAULT) [address] [place] [address] Cryptococcus jaime/neoformans DNA Not detected Normal Not Detected [facility] Comment on above: Order Comment: 2 Bot tles (1 Set - consists of 1 Aerobic bottle and 1 Anaerobic bottle) -1st Peripheral DrawFor vacutainer method draw: Fill aerobic bottle first, then anaerobicResults may be compromised due to HIGH VOLUME of the BACT\\ALERT bottle EXCEEDING 10mLs, which can be associated with increased contamination. The optimal blood volume is 8-10mLs per aerobic/anaerobic blood culture bottle.This test was performed using a multiplex nucleic acid test that detects and identifies multiple bacterial and yeast nucleic acids and select genetic determinants associated with antimicrobial resistance. Culture is necessary to confirm susceptibilities and identify organisms not detected by this test. A "Not Detected" result for a genetic marker of antimicrobial resistance does not indicate susceptibility to associated antimicrobial drugs or drug classes. Results should be used in conjunction with other clinical and laboratory findings. Performed By: #### X M #### [facility] (DEFAULT) [address] [address] Enterobacter cloacae complex DNA Not detected Normal Not Detected [facility] Comment on above: Order Comment: 2 Bot tles (1 Set - consists of 1 Aerobic bottle and 1 Anaerobic bottle) -1st Peripheral DrawFor vacutainer method draw: Fill aerobic bottle first, then anaerobicResults may be compromised due to HIGH VOLUME of the BACT\\ALERT bottle EXCEEDING 10mLs, which can be associated with increased contamination. The optimal blood volume is 8-10mLs per aerobic/anaerobic blood culture bottle.This test was performed using a multiplex nucleic acid test that detects and identifies multiple bacterial and yeast nucleic acids and select genetic determinants associated with antimicrobial resistance. Culture is necessary to confirm susceptibilities and identify organisms not detected by this test. A "Not Detected" result for a genetic marker of antimicrobial resistance does not indicate susceptibility to associated antimicrobial drugs or drug classes. Results should be used in conjunction with other clinical and laboratory findings. Performed By: #### X M #### [facility] (DEFAULT) [address] [address] Enterobacterales DNA Not detected Normal Not Detected [facility] Comment on above: Order Comment: 2 Bot tles (1 Set - consists of 1 Aerobic bottle and 1 Anaerobic bottle) -1st Peripheral DrawFor vacutainer method draw: Fill aerobic bottle first, then anaerobicResults may be compromised due to HIGH VOLUME of the BACT\\ALERT bottle EXCEEDING 10mLs, which can be associated with increased contamination. The optimal blood volume is 8-10mLs per aerobic/anaerobic blood culture bottle.This test was performed using a multiplex nucleic acid test that detects and identifies multiple bacterial and yeast nucleic acids and select genetic determinants associated with antimicrobial resistance. Culture is necessary to confirm susceptibilities and identify organisms not detected by this test. A "Not Detected" result for a genetic marker of antimicrobial resistance does not indicate susceptibility to associated antimicrobial drugs or drug classes. Results should be used in conjunction with other clinical and laboratory findings. Performed By: #### X M #### [facility] (DEFAULT) [address] [address] Enterococcus faecalis DNA Not detected Normal Not Detected [facility] Comment on above: Order Comment: 2 Bot tles (1 Set - consists of 1 Aerobic bottle and 1 Anaerobic bottle) -1st Peripheral DrawFor vacutainer method draw: Fill aerobic bottle first, then anaerobicResults may be compromised due to HIGH VOLUME of the BACT\\ALERT bottle EXCEEDING 10mLs, which can be associated with increased contamination. The optimal blood volume is 8-10mLs per aerobic/anaerobic blood culture bottle.This test was performed using a multiplex nucleic acid test that detects and identifies multiple bacterial and yeast nucleic acids and select genetic determinants associated with antimicrobial resistance. Culture is necessary to confirm susceptibilities and identify organisms not detected by this test. A "Not Detected" result for a genetic marker of antimicrobial resistance does not indicate susceptibility to associated antimicrobial drugs or drug classes. Results should be used in conjunction with other clinical and laboratory findings. Performed By: #### X M #### [facility] (DEFAULT) [address] [place] [address] Enterococcus faecium DNA Not detected Normal Not Detected [facility] Comment on above: Order Comment: 2 Bot tles (1 Set - consists of 1 Aerobic bottle and 1 Anaerobic bottle) -1st Peripheral DrawFor vacutainer method draw: Fill aerobic bottle first, then anaerobicResults may be compromised due to HIGH VOLUME of the BACT\\ALERT bottle EXCEEDING 10mLs, which can be associated with increased contamination. The optimal blood volume is 8-10mLs per aerobic/anaerobic blood culture bottle.This test was performed using a multiplex nucleic acid test that detects and identifies multiple bacterial and yeast nucleic acids and select genetic determinants associated with antimicrobial resistance. Culture is necessary to confirm susceptibilities and identify organisms not detected by this test. A "Not Detected" result for a genetic marker of antimicrobial resistance does not indicate susceptibility to associated antimicrobial drugs or drug classes. Results should be used in conjunction with other clinical and laboratory findings. Performed By: #### X M #### [facility] (DEFAULT) [address] [place] [address] Escherichia coli DNA Not detected Normal Not Detected [facility] Comment on above: Order Comment: 2 Bot tles (1 Set - consists of 1 Aerobic bottle and 1 Anaerobic bottle) -1st Peripheral DrawFor vacutainer method draw: Fill aerobic bottle first, then anaerobicResults may be compromised due to HIGH VOLUME of the BACT\\ALERT bottle EXCEEDING 10mLs, which can be associated with increased contamination. The optimal blood volume is 8-10mLs per aerobic/anaerobic blood culture bottle.This test was performed using a multiplex nucleic acid test that detects and identifies multiple bacterial and yeast nucleic acids and select genetic determinants associated with antimicrobial resistance. Culture is necessary to confirm susceptibilities and identify organisms not detected by this test. A "Not Detected" result for a genetic marker of antimicrobial resistance does not indicate susceptibility to associated antimicrobial drugs or drug classes. Results should be used in conjunction with other clinical and laboratory findings. Performed By: #### X M #### [facility] (DEFAULT) [address] [address] Haemophilus influenzae DNA Not detected Normal Not Detected [facility] Comment on above: Order Comment: 2 Bot tles (1 Set - consists of 1 Aerobic bottle and 1 Anaerobic bottle) -1st Peripheral DrawFor vacutainer method draw: Fill aerobic bottle first, then anaerobicResults may be compromised due to HIGH VOLUME of the BACT\\ALERT bottle EXCEEDING 10mLs, which can be associated with increased contamination. The optimal blood volume is 8-10mLs per aerobic/anaerobic blood culture bottle.This test was performed using a multiplex nucleic acid test that detects and identifies multiple bacterial and yeast nucleic acids and select genetic determinants associated with antimicrobial resistance. Culture is necessary to confirm susceptibilities and identify organisms not detected by this test. A "Not Detected" result for a genetic marker of antimicrobial resistance does not indicate susceptibility to associated antimicrobial drugs or drug classes. Results should be used in conjunction with other clinical and laboratory findings. Performed By: #### X M #### [facility] (DEFAULT) [address] [address] Klebsiella aerogenes DNA Not detected Normal Not Detected [facility] Comment on above: Order Comment: 2 Bot tles (1 Set - consists of 1 Aerobic bottle and 1 Anaerobic bottle) -1st Peripheral DrawFor vacutainer method draw: Fill aerobic bottle first, then anaerobicResults may be compromised due to HIGH VOLUME of the BACT\\ALERT bottle EXCEEDING 10mLs, which can be associated with increased contamination. The optimal blood volume is 8-10mLs per aerobic/anaerobic blood culture bottle.This test was performed using a multiplex nucleic acid test that detects and identifies multiple bacterial and yeast nucleic acids and select genetic determinants associated with antimicrobial resistance. Culture is necessary to confirm susceptibilities and identify organisms not detected by this test. A "Not Detected" result for a genetic marker of antimicrobial resistance does not indicate susceptibility to associated antimicrobial drugs or drug classes. Results should be used in conjunction with other clinical and laboratory findings. Performed By: #### X M #### [facility] (DEFAULT) [address] [address] Klebsiella oxytoca DNA Not detected Normal Not Detecte d [facility] Comment on above: Order Comment: 2 Bot tles (1 Set - consists of 1 Aerobic bottle and 1 Anaerobic bottle) -1st Peripheral DrawFor vacutainer method draw: Fill aerobic bottle first, then anaerobicResults may be compromised due to HIGH VOLUME of the BACT\\ALERT bottle EXCEEDING 10mLs, which can be associated with increased contamination. The optimal blood volume is 8-10mLs per aerobic/anaerobic blood culture bottle.This test was performed using a multiplex nucleic acid test that detects and identifies multiple bacterial and yeast nucleic acids and select genetic determinants associated with antimicrobial resistance. Culture is necessary to confirm susceptibilities and identify organisms not detected by this test. A "Not Detected" result for a genetic marker of antimicrobial resistance does not indicate susceptibility to associated antimicrobial drugs or drug classes. Results should be used in conjunction with other clinical and laboratory findings. Performed By: #### X M #### [facility] (DEFAULT) [address] [place] [id number] Klebsiella pneumoniae group DNA Not detected Normal Not Detected [facility] Comment on above: Order Comment: 2 Bot tles (1 Set - consists of 1 Aerobic bottle and 1 Anaerobic bottle) -1st Peripheral DrawFor vacutainer method draw: Fill aerobic bottle first, then anaerobicResults may be compromised due to HIGH VOLUME of the BACT\\ALERT bottle EXCEEDING 10mLs, which can be associated with increased contamination. The optimal blood volume is 8-10mLs per aerobic/anaerobic blood culture bottle.This test was performed using a multiplex nucleic acid test that detects and identifies multiple bacterial and yeast nucleic acids and select genetic determinants associated with antimicrobial resistance. Culture is necessary to confirm susceptibilities and identify organisms not detected by this test. A "Not Detected" result for a genetic marker of antimicrobial resistance does not indicate susceptibility to associated antimicrobial drugs or drug classes. Results should be used in conjunction with other clinical and laboratory findings. Performed By: #### X M #### [facility] (DEFAULT) [address] [address] Listeria monocytogenes DNA Not detected Normal Not Detected [facility] Comment on above: Order Comment: 2 Bot tles (1 Set - consists of 1 Aerobic bottle and 1 Anaerobic bottle) -1st Peripheral DrawFor vacutainer method draw: Fill aerobic bottle first, then anaerobicResults may be compromised due to HIGH VOLUME of the BACT\\ALERT bottle EXCEEDING 10mLs, which can be associated with increased contamination. The optimal blood volume is 8-10mLs per aerobic/anaerobic blood culture bottle.This test was performed using a multiplex nucleic acid test that detects and identifies multiple bacterial and yeast nucleic acids and select genetic determinants associated with antimicrobial resistance. Culture is necessary to confirm susceptibilities and identify organisms not detected by this test. A "Not Detected" result for a genetic marker of antimicrobial resistance does not indicate susceptibility to associated antimicrobial drugs or drug classes. Results should be used in conjunction with other clinical and laboratory findings. Performed By: #### X M #### [facility] (DEFAULT) [address] [address] mecA/C Detected Abnormal Not Detected [facility] Comment on above: Order Comment: 2 Bot tles (1 Set - consists of 1 Aerobic bottle and 1 Anaerobic bottle) -1st Peripheral DrawFor vacutainer method draw: Fill aerobic bottle first, then anaerobicResults may be compromised due to HIGH VOLUME of the BACT\\ALERT bottle EXCEEDING 10mLs, which can be associated with increased contamination. The optimal blood volume is 8-10mLs per aerobic/anaerobic blood culture bottle.This test was performed using a multiplex nucleic acid test that detects and identifies multiple bacterial and yeast nucleic acids and select genetic determinants associated with antimicrobial resistance. Culture is necessary to confirm susceptibilities and identify organisms not detected by this test. A "Not Detected" result for a genetic marker of antimicrobial resistance does not indicate susceptibility to associated antimicrobial drugs or drug classes. Results should be used in conjunction with other clinical and laboratory findings. Performed By: #### X M #### [facility] (DEFAULT) [address] [address] Neisseria meningitidis DNA Not detected Normal Not Detected [facility] Comment on above: Order Comment: 2 Bot tles (1 Set - consists of 1 Aerobic bottle and 1 Anaerobic bottle) -1st Peripheral DrawFor vacutainer method draw: Fill aerobic bottle first, then anaerobicResults may be compromised due to HIGH VOLUME of the BACT\\ALERT bottle EXCEEDING 10mLs, which can be associated with increased contamination. The optimal blood volume is 8-10mLs per aerobic/anaerobic blood culture bottle.This test was performed using a multiplex nucleic acid test that detects and identifies multiple bacterial and yeast nucleic acids and select genetic determinants associated with antimicrobial resistance. Culture is necessary to confirm susceptibilities and identify organisms not detected by this test. A "Not Detected" result for a genetic marker of antimicrobial resistance does not indicate susceptibility to associated antimicrobial drugs or drug classes. Results should be used in conjunction with other clinical and laboratory findings. Performed By: #### X M #### [facility] (DEFAULT) [address] [place] [address] Proteus species DNA Not detected Normal Not Detected [facility] Comment on above: Order Comment: 2 Bot tles (1 Set - consists of 1 Aerobic bottle and 1 Anaerobic bottle) -1st Peripheral DrawFor vacutainer method draw: Fill aerobic bottle first, then anaerobicResults may be compromised due to HIGH VOLUME of the BACT\\ALERT bottle EXCEEDING 10mLs, which can be associated with increased contamination. The optimal blood volume is 8-10mLs per aerobic/anaerobic blood culture bottle.This test was performed using a multiplex nucleic acid test that detects and identifies multiple bacterial and yeast nucleic acids and select genetic determinants associated with antimicrobial resistance. Culture is necessary to confirm susceptibilities and identify organisms not detected by this test. A "Not Detected" result for a genetic marker of antimicrobial resistance does not indicate susceptibility to associated antimicrobial drugs or drug classes. Results should be used in conjunction with other clinical and laboratory findings. Performed By: #### X M #### [facility] (DEFAULT) [address] [place] [address] Pseudomonas aeruginosa DNA Not detected Normal Not Detected [facility] Comment on above: Order Comment: 2 Bot tles (1 Set - consists of 1 Aerobic bottle and 1 Anaerobic bottle) -1st Peripheral DrawFor vacutainer method draw: Fill aerobic bottle first, then anaerobicResults may be compromised due to HIGH VOLUME of the BACT\\ALERT bottle EXCEEDING 10mLs, which can be associated with increased contamination. The optimal blood volume is 8-10mLs per aerobic/anaerobic blood culture bottle.This test was performed using a multiplex nucleic acid test that detects and identifies multiple bacterial and yeast nucleic acids and select genetic determinants associated with antimicrobial resistance. Culture is necessary to confirm susceptibilities and identify organisms not detected by this test. A "Not Detected" result for a genetic marker of antimicrobial resistance does not indicate susceptibility to associated antimicrobial drugs or drug classes. Results should be used in conjunction with other clinical and laboratory findings. Performed By: #### X M #### [facility] (DEFAULT) [address] [address] Salmonella species DNA Not detected Normal Not Detecte d [facility] Comment on above: Order Comment: 2 Bot tles (1 Set - consists of 1 Aerobic bottle and 1 Anaerobic bottle) -1st Peripheral DrawFor vacutainer method draw: Fill aerobic bottle first, then anaerobicResults may be compromised due to HIGH VOLUME of the BACT\\ALERT bottle EXCEEDING 10mLs, which can be associated with increased contamination. The optimal blood volume is 8-10mLs per aerobic/anaerobic blood culture bottle.This test was performed using a multiplex nucleic acid test that detects and identifies multiple bacterial and yeast nucleic acids and select genetic determinants associated with antimicrobial resistance. Culture is necessary to confirm susceptibilities and identify organisms not detected by this test. A "Not Detected" result for a genetic marker of antimicrobial resistance does not indicate susceptibility to associated antimicrobial drugs or drug classes. Results should be used in conjunction with other clinical and laboratory findings. Performed By: #### X M #### [facility] (DEFAULT) [address] [address] Serratia marcescens DNA Not detected Normal Not Detect ed [facility] Comment on above: Order Comment: 2 Bot tles (1 Set - consists of 1 Aerobic bottle and 1 Anaerobic bottle) -1st Peripheral DrawFor vacutainer method draw: Fill aerobic bottle first, then anaerobicResults may be compromised due to HIGH VOLUME of the BACT\\ALERT bottle EXCEEDING 10mLs, which can be associated with increased contamination. The optimal blood volume is 8-10mLs per aerobic/anaerobic blood culture bottle.This test was performed using a multiplex nucleic acid test that detects and identifies multiple bacterial and yeast nucleic acids and select genetic determinants associated with antimicrobial resistance. Culture is necessary to confirm susceptibilities and identify organisms not detected by this test. A "Not Detected" result for a genetic marker of antimicrobial resistance does not indicate susceptibility to associated antimicrobial drugs or drug classes. Results should be used in conjunction with other clinical and laboratory findings. Performed By: #### X M #### [facility] (DEFAULT) [address] [address] Staphylococcus aureus DNA Not detected Normal Not Detected [facility] Comment on above: Order Comment: 2 Bot tles (1 Set - consists of 1 Aerobic bottle and 1 Anaerobic bottle) -1st Peripheral DrawFor vacutainer method draw: Fill aerobic bottle first, then anaerobicResults may be compromised due to HIGH VOLUME of the BACT\\ALERT bottle EXCEEDING 10mLs, which can be associated with increased contamination. The optimal blood volume is 8-10mLs per aerobic/anaerobic blood culture bottle.This test was performed using a multiplex nucleic acid test that detects and identifies multiple bacterial and yeast nucleic acids and select genetic determinants associated with antimicrobial resistance. Culture is necessary to confirm susceptibilities and identify organisms not detected by this test. A "Not Detected" result for a genetic marker of antimicrobial resistance does not indicate susceptibility to associated antimicrobial drugs or drug classes. Results should be used in conjunction with other clinical and laboratory findings. Performed By: #### X M #### [facility] (DEFAULT) [address] [address] Staphylococcus epidermidis DNA Detected Abnormal Not Detected [facility] Comment on above: Order Comment: 2 Bot tles (1 Set - consists of 1 Aerobic bottle and 1 Anaerobic bottle) -1st Peripheral DrawFor vacutainer method draw: Fill aerobic bottle first, then anaerobicResults may be compromised due to HIGH VOLUME of the BACT\\ALERT bottle EXCEEDING 10mLs, which can be associated with increased contamination. The optimal blood volume is 8-10mLs per aerobic/anaerobic blood culture bottle.This test was performed using a multiplex nucleic acid test that detects and identifies multiple bacterial and yeast nucleic acids and select genetic determinants associated with antimicrobial resistance. Culture is necessary to confirm susceptibilities and identify organisms not detected by this test. A "Not Detected" result for a genetic marker of antimicrobial resistance does not indicate susceptibility to associated antimicrobial drugs or drug classes. Results should be used in conjunction with other clinical and laboratory findings. Performed By: #### X M #### [facility] (DEFAULT) [address] [address] Staphylococcus lugdunensis DNA Not detected Normal Not Detected [facility] Comment on above: Order Comment: 2 Bot tles (1 Set - consists of 1 Aerobic bottle and 1 Anaerobic bottle) -1st Peripheral DrawFor vacutainer method draw: Fill aerobic bottle first, then anaerobicResults may be compromised due to HIGH VOLUME of the BACT\\ALERT bottle EXCEEDING 10mLs, which can be associated with increased contamination. The optimal blood volume is 8-10mLs per aerobic/anaerobic blood culture bottle.This test was performed using a multiplex nucleic acid test that detects and identifies multiple bacterial and yeast nucleic acids and select genetic determinants associated with antimicrobial resistance. Culture is necessary to confirm susceptibilities and identify organisms not detected by this test. A "Not Detected" result for a genetic marker of antimicrobial resistance does not indicate susceptibility to associated antimicrobial drugs or drug classes. Results should be used in conjunction with other clinical and laboratory findings. Performed By: #### X M #### [facility] (DEFAULT) [address] [address] Staphylococcus species DNA Detected Abnormal Not Detected [facility] Comment on above: Order Comment: 2 Bot tles (1 Set - consists of 1 Aerobic bottle and 1 Anaerobic bottle) -1st Peripheral DrawFor vacutainer method draw: Fill aerobic bottle first, then anaerobicResults may be compromised due to HIGH VOLUME of the BACT\\ALERT bottle EXCEEDING 10mLs, which can be associated with increased contamination. The optimal blood volume is 8-10mLs per aerobic/anaerobic blood culture bottle.This test was performed using a multiplex nucleic acid test that detects and identifies multiple bacterial and yeast nucleic acids and select genetic determinants associated with antimicrobial resistance. Culture is necessary to confirm susceptibilities and identify organisms not detected by this test. A "Not Detected" result for a genetic marker of antimicrobial resistance does not indicate susceptibility to associated antimicrobial drugs or drug classes. Results should be used in conjunction with other clinical and laboratory findings. Performed By: #### X M #### [facility] (DEFAULT) [address] [address] Stenotrophomonas maltophilia DNA Not detected Normal Not Detected [facility] Comment on above: Order Comment: 2 Bot tles (1 Set - consists of 1 Aerobic bottle and 1 Anaerobic bottle) -1st Peripheral DrawFor vacutainer method draw: Fill aerobic bottle first, then anaerobicResults may be compromised due to HIGH VOLUME of the BACT\\ALERT bottle EXCEEDING 10mLs, which can be associated with increased contamination. The optimal blood volume is 8-10mLs per aerobic/anaerobic blood culture bottle.This test was performed using a multiplex nucleic acid test that detects and identifies multiple bacterial and yeast nucleic acids and select genetic determinants associated with antimicrobial resistance. Culture is necessary to confirm susceptibilities and identify organisms not detected by this test. A "Not Detected" result for a genetic marker of antimicrobial resistance does not indicate susceptibility to associated antimicrobial drugs or drug classes. Results should be used in conjunction with other clinical and laboratory findings. Performed By: #### X M #### [facility] (DEFAULT) [address] [place] [address] Streptococcus agalactiae (Group B) DNA Not detected Normal Not Detected [facility] Comment on above: Order Comment: 2 Bot tles (1 Set - consists of 1 Aerobic bottle and 1 Anaerobic bottle) -1st Peripheral DrawFor vacutainer method draw: Fill aerobic bottle first, then anaerobicResults may be compromised due to HIGH VOLUME of the BACT\\ALERT bottle EXCEEDING 10mLs, which can be associated with increased contamination. The optimal blood volume is 8-10mLs per aerobic/anaerobic blood culture bottle.This test was performed using a multiplex nucleic acid test that detects and identifies multiple bacterial and yeast nucleic acids and select genetic determinants associated with antimicrobial resistance. Culture is necessary to confirm susceptibilities and identify organisms not detected by this test. A "Not Detected" result for a genetic marker of antimicrobial resistance does not indicate susceptibility to associated antimicrobial drugs or drug classes. Results should be used in conjunction with other clinical and laboratory findings. Performed By: #### X M #### [facility] (DEFAULT) [address] [place] [address] Streptococcus pneumoniae DNA Not detected Normal Not Detected [facility] Comment on above: Order Comment: 2 Bot tles (1 Set - consists of 1 Aerobic bottle and 1 Anaerobic bottle) -1st Peripheral DrawFor vacutainer method draw: Fill aerobic bottle first, then anaerobicResults may be compromised due to HIGH VOLUME of the BACT\\ALERT bottle EXCEEDING 10mLs, which can be associated with increased contamination. The optimal blood volume is 8-10mLs per aerobic/anaerobic blood culture bottle.This test was performed using a multiplex nucleic acid test that detects and identifies multiple bacterial and yeast nucleic acids and select genetic determinants associated with antimicrobial resistance. Culture is necessary to confirm susceptibilities and identify organisms not detected by this test. A "Not Detected" result for a genetic marker of antimicrobial resistance does not indicate susceptibility to associated antimicrobial drugs or drug classes. Results should be used in conjunction with other clinical and laboratory findings. Performed By: #### X M #### [facility] (DEFAULT) [address] [place] [address] Streptococcus pyogenes (Group A) DNA Not detected Normal Not Detected [facility] Comment on above: Order Comment: 2 Bot tles (1 Set - consists of 1 Aerobic bottle and 1 Anaerobic bottle) -1st Peripheral DrawFor vacutainer method draw: Fill aerobic bottle first, then anaerobicResults may be compromised due to HIGH VOLUME of the BACT\\ALERT bottle EXCEEDING 10mLs, which can be associated with increased contamination. The optimal blood volume is 8-10mLs per aerobic/anaerobic blood culture bottle.This test was performed using a multiplex nucleic acid test that detects and identifies multiple bacterial and yeast nucleic acids and select genetic determinants associated with antimicrobial resistance. Culture is necessary to confirm susceptibilities and identify organisms not detected by this test. A "Not Detected" result for a genetic marker of antimicrobial resistance does not indicate susceptibility to associated antimicrobial drugs or drug classes. Results should be used in conjunction with other clinical and laboratory findings. Performed By: #### X M #### [facility] (DEFAULT) [address] [place] [address] Streptococcus species DNA Not detected Normal Not Detected [facility] Comment on above: Order Comment: 2 Bot tles (1 Set - consists of 1 Aerobic bottle and 1 Anaerobic bottle) -1st Peripheral DrawFor vacutainer method draw: Fill aerobic bottle first, then anaerobicResults may be compromised due to HIGH VOLUME of the BACT\\ALERT bottle EXCEEDING 10mLs, which can be associated with increased contamination. The optimal blood volume is 8-10mLs per aerobic/anaerobic blood culture bottle.This test was performed using a multiplex nucleic acid test that detects and identifies multiple bacterial and yeast nucleic acids and select genetic determinants associated with antimicrobial resistance. Culture is necessary to confirm susceptibilities and identify organisms not detected by this test. A "Not Detected" result for a genetic marker of antimicrobial resistance does not indicate susceptibility to associated antimicrobial drugs or drug classes. Results should be used in conjunction with other clinical and laboratory findings. Performed By: #### X M #### [facility] (DEFAULT) [address] [address] CALCIUMon 02-28-2025 Calcium [Mass/Vol] 8.9 mg/dL Normal 8.6-10.5 [facility] Comment on above: Performed By: #### H EMO #### [facility] (DEFAULT) [address] [address] CBC,PLATELETSon 02-28-2025 Hematocrit (Bld) [Volume fraction] 31.0 % Low 39.6-48.8 [facility] Comment on above: Performed By: #### H EMOGC #### [facility] (DEFAULT) [address] [address] Hemoglobin (Bld) [Mass/Vol] 9.4 g/dL Low 13.4-16.8 [facility] Comment on above: Performed By: #### H EMOGC #### [facility] (DEFAULT) [address] [address] MCV (RBC) [Entitic vol] 107.3 fL High 79.0-94.5 [facility] Comment on above: Performed By: #### H EMOGC #### [facility] (DEFAULT) [address] [address] Mean Cell Hgb 32.5 pg Normal 26.1-33.3 [facility] Comment on above: Performed By: #### H EMOGC #### [facility] (DEFAULT) [address] [address] Mean Cell Hgb Conc 30.3 g/dL Low 31.9-36.5 [facility] Comment on above: Performed By: #### H EMOGC #### [facility] (DEFAULT) [address] [place] [address] Platelet mean volume (Bld) [Entitic vol] 9.7 fL Normal 8.7-12.3 [facility] Comment on above: Performed By: #### H EMOGC #### [facility] (DEFAULT) [address] [address] Platelets (Bld) [#/Vol] 220 10*3/uL Normal 146-337 [facility] Comment on above: Performed By: #### H EMOGC #### [facility] (DEFAULT) [address] [address] RBC (Bld) [#/Vol] 2.89 10*6/uL Low 4.38-5.83 [facility] Comment on above: Performed By: #### H EMOGC #### [facility] (DEFAULT) [address] [place] [address] RBC Distribution 17.6 % High 10.9-14.3 [facility] Comment on above: Performed By: #### H EMOGC #### [facility] (DEFAULT) [address] [address] WBC (Bld) [#/Vol] 6.86 10*3/uL Normal 3.73-10.10 [facility] Comment on above: Performed By: #### H EMOGC #### [facility] (DEFAULT) [address] [address] CHEM 7 (LYTES,BUN,CREA,GLUC) on 02-28-2025 Anion gap [Moles/Vol] 19 mmol/L High 7-17 [facility] Comment on above: Performed By: #### H EMOGC #### [facility] (DEFAULT) [address] [address] Chloride [Moles/Vol] 101 mmol/L Normal 98-108 [facility] Comment on above: Performed By: #### H EMOGC #### [facility] (DEFAULT) [address] [place] [address] CO2 [Moles/Vol] 25 mmol/L Normal 21-31 [facility] Comment on above: Performed By: #### H EMOGC #### [facility] (DEFAULT) [address] [place] [address] Creatinine [Mass/Vol] 6.59 mg/dL High 0.70-1.30 [facility] Comment on above: Performed By: #### H EMOGC #### [facility] (DEFAULT) [address] [place] [address] GFR/1.73 sq M.predicted among non-blacks MDRD (S/P/Bld) [Vol rate/Area] 8 mL/min/{1.73_m2} Low >=60 [facility] Comment on above: Result Comment: Repo rted eGFR is based on the CKD-EPI 2020 equation using creatinine, age, and sex. Performed By: #### H EMO #### [facility] (DEFAULT) [address] [place] [address] Glucose [Mass/Vol] 114 mg/dL Normal Nonfastin -179 mg/dL; Fastin-99 [facility] Comment on above: Performed By: #### H EMO #### [facility] (DEFAULT) [address] [place] [address] Osmolality [Osmolality] 303 mosm/kg Normal 278-305 [facility] Comment on above: Performed By: #### H EMOGC #### [facility] (DEFAULT) [address] [place] [address] Potassium [Moles/Vol] 4.5 mmol/L Normal 3.5-5.0 [facility] Comment on above: Performed By: #### H EMOGC #### [facility] (DEFAULT) [address] [place] [address] Sodium [Moles/Vol] 140 mmol/L Normal 135-145 [facility] Comment on above: Performed By: #### H [facility] #### [facility] (DEFAULT) [address] [place] [address] Urea nitrogen [Mass/Vol] 36 mg/dL High 7-25 [facility] Comment on above: Performed By: #### H [facility] #### [facility] (DEFAULT) [address] [place] [address] Urea nitrogen/Creatinine [Mass ratio] 5 mg/mg Normal [facility] Comment on above: Performed By: #### H [facility] #### [facility] (DEFAULT) [address] [place] [address] Laboratory - Chemistry and C hemistry - challengeon 02-28-2025 Anion gap [Moles/Vol] 19 mmol/L High 7 - 17 mmol/L [facility] Chloride [Moles/Vol] 101 mmol/L 98 - 10 8 mmol/L [facility] CO2 [Moles/Vol] 25 mmol/L 21 - 31 mmol/L [facility] Creatinine [Mass/Vol] 6.59 mg/dL High 0.70 - 1.30 mg/dL [facility] Glucose [Mass/Vol] 114 mg/dL 70 - 179 mg/dL [facility] Magnesium [Mass/Vol] 1.9 mg/dL 1.6 - 2 .6 mg/dL [facility] Osmolality Calc [Osmolality] 303 [facility] Phosphate [Mass/Vol] 4.7 mg/dL High 2.2 - 4 .6 mg/dL [facility] Potassium [Moles/Vol] 4.5 mmol/L 3.5 - 5.0 mmol/L [facility] Sodium [Moles/Vol] 140 mmol/L 135 - 145 mmol/L [facility] Urea nitrogen [Mass/Vol] 36 mg/dL High 7 - 25 mg/dL [facility] Urea nitrogen/Creatinine [Mass ratio] 5 mg[facility] Calcium [Mass/Vol] 8.9 mg/dL 8.6 - 10. 5 mg/dL [facility] Laboratory - Coagulationon 0 02-28-2025 aPTT Coag (PPP) [Time] 73.8 s High OS [facility] INR Coag (Bld) [Relative time] 1.5 {INR} High 0.9 - 1.1 [facility] PT Coag (PPP) [Time] 17.9 s High [facility] aPTT Coag (PPP) [Time] 82.1 s High [facility] aPTT Coag (PPP) [Time] 101.1 s High OS [facility] INR Coag (Bld) [Relative time] 1.5 {INR} High 0.9 - 1.1 [facility] Coag (PPP) [Time] 17.8 s [facility] CoagulationOrde red By: Mindi Abbott on 02-28-2025 aPTT Coag (PPP) [Time] 87.5 s High [facility] - Hematology and Cell countson 02-28-2025 Erythrocyte distribution width (RBC) [Ratio] 17.6 % High 10.9 - 14.3 % [facility] Hematocrit (Bld) [Volume fraction] 31 % Low 39.6 - 48.8 % [facility] Hemoglobin (Bld) [Mass/Vol] 9.4 g/dL Low 13.4 - 16.8 g/dL [facility] MCH (RBC) [Entitic mass] 32.5 pg 26.1 - 33.[address] [facility] MCHC (RBC) [Mass/Vol] 30.3 g/dL Low 31.9 - 36.5 g/dL [facility] MCV (RBC) [Entitic vol] 107.3 fL High 79.0 - 94.[address] [facility] Platelet mean volume (Bld) [Entitic vol] 9.7 fL 8.7 - 12.[address] [facility] Platelets (Bld) [#/Vol] 220 10*3/uL 146 - 337 K/uL [facility] RBC (Bld) [#/Vol] 2.89 10*6/uL Low [facility] WBC (Bld) [#/Vol] 6.86 10*3/uL 3.73 - 10. 10 K/uL [facility] MAGNESIUMon 02-28-2025 Magnesium [Mass/Vol] 1.9 mg/dL Normal 1.6-2.6 [facility] Comment on above: Performed By: #### H [facility] #### [facility] (DEFAULT) [address] [place] [address] No Panel Informationon 02-28 Interpretation and review of laboratory results Abnormal [facility] Interpretation and review of laboratory results Abnormal [facility] Interpretation and review of laboratory results Abnormal [facility] Interpretation and review of laboratory results Abnormal [facility] Interpretation and review of laboratory results Abnormal [facility] eGFR, CKD-EPI, Male 8 Low - PINF [facility] Interpretation and review of laboratory results Abnormal [facility] Interpretation and review of laboratory results Normal [facility] Interpretation and review of laboratory results Abnormal [facility] Radiology Study observation (narrative) [facility] No Panel InformationOrdered By: Mindi Abbott on 02-28-2025 Interpretation and review of laboratory results Abnormal [facility] PHOSPHATE, INORGANICon 02-28 Phosphorous 4.7 mg/dL High 2.2-4.6 [facility] Comment on above: Performed By: #### H [facility] #### [facility] (DEFAULT) [address] [place] [address] PROTIME-INRon 02-28-2025 INR Coag (PPP) [Relative time] 1.5 {INR} High 0.9-1.1 [facility] Comment on above: Performed By: #### P TI, PTT ####[facility] (DEFAULT)[address] [place] [address] PT Coag (PPP) [Time] 17.9 s High 11.9-14.2 [facility] Comment on above: Performed By: #### P TI, PTT ####[facility] (DEFAULT)[address] [place] [address]70 INR Coag (PPP) [Relative time] 1.5 {INR} High 0.9-1.1 [facility] Comment on above: Performed By: #### X M #### [facility] (DEFAULT) [address] [place] [address] 16842 PT Coag (PPP) [Time] 17.8 s High 11.9-14.2 [facility] Comment on above: Performed By: #### X M #### [facility] (DEFAULT) [address] [place] [address] 47797 PTTon 02-28-2025 aPTT Coag (Bld) [Time] 73.8 s High 24.0-34.3 [facility] Comment on above: Order Comment: After [...] instructions. Performed By: #### P TI, PTT ####[facility] (DEFAULT)[address] [place] [address]32 aPTT Coag (Bld) [Time] 82.1 s High 24.0-34.3 [facility] Comment on above: Order Comment: After [...] instructions. Performed By: #### G EN #### [facility] (DEFAULT) [address] [place] [address]269 aPTT Coag (Bld) [Time] 101.1 s High 24.0-34.3 [facility] Comment on above: Order Comment: After [...] Performed By: #### X M #### [facility] (DEFAULT) [address] [place] [address]1004 aPTT Coag (Bld) [Time] 87.5 s High 24.0-34.3 [facility] Comment on above: Order Comment: After [...] Performed By: #### X M #### [facility] (DEFAULT) [address] [address] Laboratory - CoagulationOrde red By: Sagrario Schulte on 2025 aPTT Coag (PPP) [Time] 66.9 s High [facility] Laboratory - CoagulationOrde red By: Kaylin Arthur on 2025 aPTT Coag (PPP) [Time] 97.6 s High [facility] Laboratory - Coagulationon 0 2025 aPTT Coag (PPP) [Time] 64.8 s High [facility] INR Coag (Bld) [Relative time] 1.5 {INR} High 0.9 - 1.1 [facility] PT Coag (PPP) [Time] 17.[address] [facility] No Panel InformationOrdered By: Sagrario Schulte on 2025 Interpretation and review of laboratory results Abnormal [facility] No Panel InformationOrdered By: Kaylin Arthur on 2025 Interpretation and review of laboratory results Abnormal [facility] No Panel Informationon 02-27 ABO/RH(D) TYPE Positive [facility] Specimen Expiration 03/02/2025 04:16 [facility] Interpretation and review of laboratory results Abnormal [facility] Interpretation and review of laboratory results Abnormal [facility] PROTIME-INRon 2025 INR Coag (PPP) [Relative time] 1.5 {INR} High 0.9-1.1 [facility] Comment on above: Performed By: #### X M #### [facility] (DEFAULT) [address] [place] [address] PT Coag (PPP) [Time] 17.6 s High 11.9-14.2 [facility] Comment on above: Performed By: #### X M #### [facility] (DEFAULT) [address] [place] [address]95 PTTon 2025 aPTT Coag (Bld) [Time] 66.9 s High 24.0-34.3 [facility] Comment on above: Order Comment: After [...] Performed By: #### X M #### [facility] (DEFAULT) [address] [address] aPTT Coag (Bld) [Time] 97.6 s High 24.0-34.3 [facility] Comment on above: Order Comment: After [...] administration instructions. Performed By: #### P TT ####[facility] (DEFAULT)[address] [place] [address]154 aPTT Coag (Bld) [Time] 64.8 s High 24.0-34.3 [facility] Comment on above: Order Comment: After [...] instructions. Performed By: #### X M #### [facility] (DEFAULT) [address] [place] [address] TYPE AND SCREENon 2025 ABO/RH(D) TYPE Positive Normal [facility] Comment on above: Performed By: #### X M #### [facility] (DEFAULT) [address] [place] [address] Specimen Expiration 03/02/2025 04:16 Normal [facility] Comment on above: Performed By: #### X M #### [facility] (DEFAULT) [address] [place] [address] Laboratory - Chemistry and C hemistry - challengeon 02-26-2025 Anion gap [Moles/Vol] 17 mmol/L 7 - 17 mmol/L [facility] Calcium [Mass/Vol] 8.7 mg/dL 8.6 - 10. 5 mg/dL [facility] Chloride [Moles/Vol] 98 mmol/L 98 - 10 8 mmol/L [facility] CO2 [Moles/Vol] 26 mmol/L 21 - 31 mmol/L [facility] Creatinine [Mass/Vol] 4.82 mg/dL High 0.70 - 1.30 mg/dL [facility] Glucose [Mass/Vol] 91 mg/dL 70 - 179 mg/dL [facility] Magnesium [Mass/Vol] 1.8 mg/dL 1.6 - 2 .6 mg/dL [facility] Osmolality Calc [[facility]olality] [facility] Phosphate [Mass/Vol] 4.3 mg/dL 2.2 - 4 .6 mg/dL [facility] Potassium [Moles/Vol] 4.4 mmol/L 3.5 - 5.0 mmol/L [facility] Sodium [Moles/Vol] 137 mmol/L 135 - 145 mmol/L [facility] Urea nitrogen [Mass/Vol] 22 mg/dL 7 - 25 mg/dL [facility] Urea nitrogen/Creatinine [Mass ratio] 5 mg/mg [facility] Laboratory - Coagulationon 0 02-26-2025 aPTT Coag (PPP) [Time] 95 s High [facility] aPTT Coag (PPP) [Time] 93.8 s High [facility] INR Coag (Bld) [Relative time] 1.4 {INR} High 0.9 - 1.1 [facility] PT Coag (PPP) [Time] 16.[address] [facility] Laboratory - Hematology and Cell countson 02-26-2025 Erythrocyte distribution width (RBC) [Ratio] 18.1 % High 10.9 - 14.3 % [facility] Hematocrit (Bld) [Volume fraction] 28 % Low 39.6 - 48.8 % [facility] Hemoglobin (Bld) [Mass/Vol] 8.5 g/dL Low 13.4 - 16.8 g/dL [facility] MCH (RBC) [Entitic mass] 33.1 pg 26.1 - 33.[address] [facility] MCHC (RBC) [Mass/Vol] 30.4 g/dL Low 31.9 - 36.5 g/dL [facility] MCV (RBC) [Entitic vol] 108.9 fL High 79.0 - 94.[address] [facility] Platelet mean volume (Bld) [Entitic vol] 10.1 fL 8.7 - 12.[address] [facility] Platelets (Bld) [#/Vol] 175 10*3/uL 146 - 337 K/uL [facility] RBC (Bld) [#/Vol] 2.57 10*6/uL Low [facility] WBC (Bld) [#/Vol] 5.9 10*3/uL 3.73 - 10. 10 K/uL [facility] No Panel Informationon 02-26 Interpretation and review of laboratory results Abnormal [facility] Interpretation and review of laboratory results Abnormal [facility] Interpretation and review of laboratory results Abnormal [facility] eGFR, CKD-EPI, Male 12 Low - PINF [facility] Interpretation and review of laboratory results Abnormal [facility] Interpretation and review of laboratory results Normal [facility] Interpretation and review of laboratory results Abnormal [facility] PTTon 02-26-2025 aPTT Coag (Bld) [Time] 95.0 s High 24.0-34.3 [facility] Comment on above: Order Comment: After [...] instructions. Performed By: #### S URGP #### [facility] (DEFAULT) [address] [place] [address] CALCIUMon 02-25-2025 Calcium [Mass/Vol] 8.7 mg/dL Normal 8.6-10.5 [facility] Comment on above: Performed By: #### X M #### [facility] (DEFAULT) [address] [place] [address]01 CBC,PLATELETSon 02-25-2025 Hematocrit (Bld) [Volume fraction] 28.0 % Low 39.6-48.8 [facility] Comment on above: Performed By: #### X M #### [facility] (DEFAULT) [address] [place] [address]65 Hemoglobin (Bld) [Mass/Vol] 8.5 g/dL Low 13.4-16.8 [facility] Comment on above: Performed By: #### X M #### [facility] (DEFAULT) [address] [place] [address]131 MCV (RBC) [Entitic vol] 108.9 fL High 79.0-94.5 [facility] Comment on above: Performed By: #### X M #### [facility] (DEFAULT) [address] [address] Mean Cell Hgb 33.1 pg Normal 26.1-33.3 [facility] Comment on above: Performed By: #### X M #### [facility] (DEFAULT) [address] [address] Mean Cell Hgb Conc 30.4 g/dL Low 31.9-36.5 [facility] Comment on above: Performed By: #### X M #### [facility] (DEFAULT) [address] [address] Platelet mean volume (Bld) [Entitic vol] 10.1 fL Normal 8.7-12.3 [facility] Comment on above: Performed By: #### X M #### [facility] (DEFAULT) [address] [address] Platelets (Bld) [#/Vol] 175 10*3/uL Normal 146-337 [facility] Comment on above: Performed By: #### X M #### [facility] (DEFAULT) [address] [address] RBC (Bld) [#/Vol] 2.57 10*6/uL Low 4.38-5.83 [facility] Comment on above: Performed By: #### X M #### [facility] (DEFAULT) [address] [address] RBC Distribution 18.1 % High 10.9-14.3 [facility] Comment on above: Performed By: #### X M #### [facility] (DEFAULT) [address] [address] WBC (Bld) [#/Vol] 5.90 10*3/uL Normal 3.73-10.10 [facility] Comment on above: Performed By: #### X M #### [facility] (DEFAULT) [address] [place] [address] CHEM 7 (LYTES,BUN,CREA,GLUC) on 02-25-2025 Anion gap [Moles/Vol] 17 mmol/L Normal 7-17 [facility] Comment on above: Performed By: #### X M #### [facility] (DEFAULT) [address] [place] [address] Chloride [Moles/Vol] 98 mmol/L Normal 98-108 [facility] Comment on above: Performed By: #### X M #### [facility] (DEFAULT) [address] [place] [address] 19995 CO2 [Moles/Vol] 26 mmol/L Normal 21-31 [facility] Comment on above: Performed By: #### X M #### [facility] (DEFAULT) [address] [place] [address]34 Creatinine [Mass/Vol] 4.82 mg/dL High 0.70-1.30 [facility] Comment on above: Performed By: #### X M #### [facility] (DEFAULT) [address] [place] [address] GFR/1.73 sq M.predicted among non-blacks MDRD (S/P/Bld) [Vol rate/Area] 12 mL/min/{1.73_m2} Low >=60 [facility] Comment on above: Result Comment: Repo rted eGFR is based on the CKD-EPI 2020 equation using creatinine, age, and sex. Performed By: #### X M #### [facility] (DEFAULT) [address] [place] [address] Glucose [Mass/Vol] 91 mg/dL Normal Nonfastin -179 mg/dL; Fastin-99 [facility] Comment on above: Performed By: #### X M #### [facility] (DEFAULT) [address] [place] [address] 66063 Osmolality [Osmolality] 291 mosm/kg Normal 278-305 [facility] Comment on above: Performed By: #### X M #### [facility] (DEFAULT) [address] [address] Potassium [Moles/Vol] 4.4 mmol/L Normal 3.5-5.0 [facility] Comment on above: Performed By: #### X M #### [facility] (DEFAULT) [address] [address] Sodium [Moles/Vol] 137 mmol/L Normal 135-145 [facility] Comment on above: Performed By: #### X M #### [facility] (DEFAULT) [address] [address] Urea nitrogen [Mass/Vol] 22 mg/dL Normal 7-25 [facility] Comment on above: Performed By: #### X M #### [facility] (DEFAULT) [address] [address] Urea nitrogen/Creatinine [Mass ratio] 5 mg/mg Normal [facility] Comment on above: Performed By: #### X M #### [facility] (DEFAULT) [address] [address] Laboratory - Coagulationon 0 02-25-2025 aPTT Coag (PPP) [Time] 79.7 s High [facility] MAGNESIUMon 02-25-2025 Magnesium [Mass/Vol] 1.8 mg/dL Normal 1.6-2.6 [facility] Comment on above: Performed By: #### X M #### [facility] (DEFAULT) [address] [address] No Panel Informationon 02-25 Interpretation and review of laboratory results Abnormal [facility] PHOSPHATE, INORGANICon 02-25 Phosphorous 4.3 mg/dL Normal 2.2-4.6 [facility] Comment on above: Performed By: #### X M #### [facility] (DEFAULT) [address] [place] [address] PROTIME-INRon 02-25-2025 INR Coag (PPP) [Relative time] 1.4 {INR} High 0.9-1.1 [facility] Comment on above: Performed By: #### P TI, PTT ####[facility] (DEFAULT)[address] [place] [address] PT Coag (PPP) [Time] 16.9 s High 11.9-14.2 [facility] Comment on above: Performed By: #### P TI, PTT ####[facility] (DEFAULT)[address] [place] [address] PTTon 02-25-2025 aPTT Coag (Bld) [Time] 93.8 s High 24.0-34.3 [facility] Comment on above: Order Comment: After [...] Performed By: #### P TI, PTT ####[facility] (DEFAULT)[address] [place] [address] aPTT Coag (Bld) [Time] 79.7 s High 24.0-34.3 [facility] Comment on above: Order Comment: After [...] instructions. Performed By: #### X M #### [facility] (DEFAULT) [address] [address] CALCIUMon 02-24-2025 Calcium [Mass/Vol] 8.6 mg/dL Normal 8.6-10.5 [facility] Comment on above: Performed By: #### X M #### [facility] (DEFAULT) [address] [address] CBC,PLATELETSon 02-24-2025 Hematocrit (Bld) [Volume fraction] 28.9 % Low 39.6-48.8 [facility] Comment on above: Performed By: #### X M #### [facility] (DEFAULT) [address] [address] Hemoglobin (Bld) [Mass/Vol] 8.8 g/dL Low 13.4-16.8 [facility] Comment on above: Performed By: #### X M #### [facility] (DEFAULT) [address] [address] MCV (RBC) [Entitic vol] 108.6 fL High 79.0-94.5 [facility] Comment on above: Performed By: #### X M #### [facility] (DEFAULT) [address] [address] Mean Cell Hgb 33.1 pg Normal 26.1-33.3 [facility] Comment on above: Performed By: #### X M #### [facility] (DEFAULT) [address] [address] Mean Cell Hgb Conc 30.4 g/dL Low 31.9-36.5 [facility] Comment on above: Performed By: #### X M #### [facility] (DEFAULT) [address] [address] Platelet mean volume (Bld) [Entitic vol] 10.4 fL Normal 8.7-12.3 [facility] Comment on above: Performed By: #### X M #### [facility] (DEFAULT) [address] [place] [address] Platelets (Bld) [#/Vol] 159 10*3/uL Normal 146-337 [facility] Comment on above: Performed By: #### X M #### [facility] (DEFAULT) [address] [address] RBC (Bld) [#/Vol] 2.66 10*6/uL Low 4.38-5.83 [facility] Comment on above: Performed By: #### X M #### [facility] (DEFAULT) [address] [address] RBC Distribution 18.4 % High 10.9-14.3 [facility] Comment on above: Performed By: #### X M #### [facility] (DEFAULT) [address] [address] WBC (Bld) [#/Vol] 6.26 10*3/uL Normal 3.73-10.10 [facility] Comment on above: Performed By: #### X M #### [facility] (DEFAULT) [address] [address] CHEM 7 (LYTES,BUN,CREA,GLUC) on 02-24-2025 Anion gap [Moles/Vol] 17 mmol/L Normal 7-17 [facility] Comment on above: Performed By: #### X M #### [facility] (DEFAULT) [address] [address] Chloride [Moles/Vol] 99 mmol/L Normal 98-108 [facility] Comment on above: Performed By: #### X M #### [facility] (DEFAULT) [address] [address] CO2 [Moles/Vol] 27 mmol/L Normal 21-31 [facility] Comment on above: Performed By: #### X M #### [facility] (DEFAULT) [address] [address] Creatinine [Mass/Vol] 3.74 mg/dL High 0.70-1.30 [facility] Comment on above: Performed By: #### X M #### [facility] (DEFAULT) [address] [place] [address] GFR/1.73 sq M.predicted among non-blacks MDRD (S/P/Bld) [Vol rate/Area] 16 mL/min/{1.73_m2} Low >=60 [facility] Comment on above: Result Comment: Repo rted eGFR is based on the CKD-EPI 2020 equation using creatinine, age, and sex. Performed By: #### X M #### [facility] (DEFAULT) [address] [place] [address] Glucose [Mass/Vol] 81 mg/dL Normal Nonfastin -179 mg/dL; Fastin-99 [facility] Comment on above: Performed By: #### X M #### [facility] (DEFAULT) [address] [place] [address] Osmolality [Osmolality] 291 mosm/kg Normal 278-305 [facility] Comment on above: Performed By: #### X M #### [facility] (DEFAULT) [address] [place] [address] Potassium [Moles/Vol] 4.0 mmol/L Normal 3.5-5.0 [facility] Comment on above: Performed By: #### X M #### [facility] (DEFAULT) [address] [place] [address] Sodium [Moles/Vol] 139 mmol/L Normal 135-145 [facility] Comment on above: Performed By: #### X M #### [facility] (DEFAULT) [address] [address] Urea nitrogen [Mass/Vol] 17 mg/dL Normal 7-25 [facility] Comment on above: Performed By: #### X M #### [facility] (DEFAULT) [address] [place] [address] Urea nitrogen/Creatinine [Mass ratio] 5 mg/mg Normal [facility] Comment on above: Performed By: #### X M #### [facility] (DEFAULT) [address] [place] [address] Laboratory - Chemistry and C hemistry - challengeon 02-24-2025 Anion gap [Moles/Vol] 17 mmol/L 7 - 17 mmol/L [facility] Chloride [Moles/Vol] 99 mmol/L 98 - 10 8 mmol/L [facility] CO2 [Moles/Vol] 27 mmol/L 21 - 31 mmol/L [facility] Creatinine [Mass/Vol] 3.74 mg/dL High 0.70 - 1.30 mg/dL [facility] Glucose [Mass/Vol] 81 mg/dL 70 - 179 mg/dL [facility] Osmolality Calc [Osmolality] 291 [facility] Potassium [Moles/Vol] 4 mmol/L 3.5 - 5.0 mmol/L [facility] Sodium [Moles/Vol] 139 mmol/L 135 - 145 mmol/L [facility] Urea nitrogen [Mass/Vol] 17 mg/dL 7 - 25 mg/dL [facility] Urea nitrogen/Creatinine [Mass ratio] 5 mg/mg [facility] Calcium [Mass/Vol] 8.6 mg/dL 8.6 - 10. 5 mg/dL [facility] Magnesium [Mass/Vol] 1.8 mg/dL 1.6 - 2 .6 mg/dL [facility] Phosphate [Mass/Vol] 2.8 mg/dL 2.2 - 4 .6 mg/dL [facility] Laboratory - Coagulationon 0 02-24-2025 aPTT Coag (PPP) [Time] 94.4 s High OS [facility] INR Coag (Bld) [Relative time] 1.3 {INR} High 0.9 - 1.1 [facility] PT Coag (PPP) [Time] 15.8 s [facility] aP[facility] Coag (PPP) [Time] 75.1 s High [facility] aPTT Coag (PPP) [Time] 81.3 s High [facility] INR Coag (Bld) [Relative time] 1.2 {INR} High 0.9 - 1.1 [facility] PT Coag (PPP) [Time] 15.5 s High [facility] aPTT Coag (PPP) [Time] 76.4 s High [facility] Laboratory - Hematology and Cell countson 02-24-2025 Erythrocyte distribution width (RBC) [Ratio] 18.4 % High 10.9 - 14.3 % [facility] Hematocrit (Bld) [Volume fraction] 28.9 % Low 39.6 - 48.8 % [facility] Hemoglobin (Bld) [Mass/Vol] 8.8 g/dL Low 13.4 - 16.8 g/dL [facility] MCH (RBC) [Entitic mass] 33.1 pg 26.1 - 33.[address] [facility] MCHC (RBC) [Mass/Vol] 30.4 g/dL Low 31.9 - 36.5 g/dL [facility] MCV (RBC) [Entitic vol] 108.6 fL High 79.0 - 94.[address] [facility] Platelet mean volume (Bld) [Entitic vol] 10.4 fL 8.7 - 12.[address] [facility] Platelets (Bld) [#/Vol] 159 10*3/uL 146 - 337 K/uL [facility] RBC (Bld) [#/Vol] 2.66 10*6/uL Low [facility] WBC (Bld) [#/Vol] 6.26 10*3/uL 3.73 - 10. 10 K/uL [facility] MAGNESIUMon 02-24-2025 Magnesium [Mass/Vol] 1.8 mg/dL Normal 1.6-2.6 [facility] Comment on above: Performed By: #### X M #### [facility] (DEFAULT) [address] [place] [address] No Panel Informationon 02-24 Interpretation and review of laboratory results Abnormal [facility] Interpretation and review of laboratory results Abnormal [facility] Interpretation and review of laboratory results Abnormal [facility] Interpretation and review of laboratory results Abnormal [facility] Interpretation and review of laboratory results Abnormal [facility] ABO/RH(D) TYPE Positive [facility] Specimen Expiration 2025 07:14 [facility] eGFR, CKD-EPI, Male 16 Low - PINF [facility] Interpretation and review of laboratory results Abnormal [facility] Interpretation and review of laboratory results Normal [facility] Interpretation and review of laboratory results Abnormal [facility] Interpretation and review of laboratory results Abnormal [facility] PHOSPHATE, INORGANICon 02-24 Phosphorous 2.8 mg/dL Normal 2.2-4.6 [facility] Comment on above: Performed By: #### X M #### [facility] (DEFAULT) [address] [place] [address] PROTIME-INRon 02-24-2025 INR Coag (PPP) [Relative time] 1.3 {INR} High 0.9-1.1 [facility] Comment on above: Performed By: #### X M #### [facility] (DEFAULT) [address] [place] [address] PT Coag (PPP) [Time] 15.8 s High 11.9-14.2 [facility] Comment on above: Performed By: #### X M #### [facility] (DEFAULT) [address] [place] [address] INR Coag (PPP) [Relative time] 1.2 {INR} High 0.9-1.1 [facility] Comment on above: Performed By: #### X M #### [facility] (DEFAULT) [address] [address] PT Coag (PPP) [Time] 15.5 s High 11.9-14.2 [facility] Comment on above: Performed By: #### X M #### [facility] (DEFAULT) [address] [address] PTTon 02-24-2025 aPTT Coag (Bld) [Time] 94.4 s High 24.0-34.3 [facility] Comment on above: Order Comment: After [...] Performed By: #### X M #### [facility] (DEFAULT) [address] [place] [address] aPTT Coag (Bld) [Time] 75.1 s High 24.0-34.3 [facility] Comment on above: Order Comment: After [...] instructions. Performed By: #### X M #### [facility] (DEFAULT) [address] [place] [address] aPTT Coag (Bld) [Time] 81.3 s High 24.0-34.3 [facility] Comment on above: Order Comment: After [...] instructions. Performed By: #### X M #### [facility] (DEFAULT) [address] [place] [address] TYPE AND SCREENon 02-24-2025 ABO/RH(D) TYPE Positive [facility] Comment on above: Performed By: #### X M #### [facility] (DEFAULT) [address] [place] [address] Specimen Expiration 2025 07:14 Normal [facility] Comment on above: Performed By: #### X M #### [facility] (DEFAULT) [address] [place], [place] [id number] Laboratory - CoagulationOrde red By: Yocasta Day on 02-23-2025 aPTT Coag (PPP) [Time] 140 s High OS [facility] Laboratory - CoagulationOrde red By: Lexis Chase on 02-23-2025 aPTT Coag (PPP) [Time] 97.4 s High [facility] Laboratory - Coagulationon 0 02-23-2025 aPTT Coag (PPP) [Time] 41.8 s High [facility] INR Coag (Bld) [Relative time] 1.1 {INR} 0.9 - 1.1 [facility] PT Coag (PPP) [Time] 14.5 [facility] No Panel InformationOrdered By: Yocasta Day on 02-23-2025 Interpretation and review of [facility] No Panel InformationOrdered By: Lexis Chase on 02-23-2025 Interpretation and review of laboratory results Abnormal [facility] No Panel Informationon 02-23 Interpretation and review of laboratory results Abnormal [facility] Interpretation and review of laboratory results Abnormal [facility] PROTIME-INRon 02-23-2025 INR Coag (PPP) [Relative time] 1.1 {INR} Normal 0.9-1.1 [facility] Comment on above: Performed By: #### X M #### [facility] (DEFAULT) [address] [place] [address]256 PT Coag (PPP) [Time] 14.5 s High 11.9-14.2 [facility] Comment on above: Performed By: #### X M #### [facility] (DEFAULT) [address] [place] [address] 43923 PTTon 02-23-2025 aPTT Coag (Bld) [Time] 76.4 s High 24.0-34.3 [facility] Comment on above: Order Comment: After [...] instructions. Performed By: #### X M #### [facility] (DEFAULT) [address] [place] [address] 69690 aPTT Coag (Bld) [Time] 140.0 s High 24.0-34.3 [facility] Comment on above: Order Comment: After [...] instructions. Performed By: #### P TT #### [facility] (DEFAULT) [address] [address] aPTT Coag (Bld) [Time] 97.4 s High 24.0-34.3 [facility] Comment on above: Order Comment: After [...] Performed By: #### X M #### [facility] (DEFAULT) [address] [address] aPTT Coag (Bld) [Time] 41.8 s High 24.0-34.3 [facility] Comment on above: Order Comment: After [...] Performed By: #### X M #### [facility] (DEFAULT) [address] [address] Laboratory - Coagulationon 0 02-22-2025 aPTT Coag (PPP) [Time] 93.6 s High [facility] aPTT Coag (PPP) [Time] 49.7 s High [facility] INR Coag (Bld) [Relative time] 1.1 {INR} 0.9 - 1.1 [facility] PT Coag (PPP) [Time] 14.[address] [facility] Laboratory - CoagulationOrde red By: Isidra Donnelly on 02-22-2025 aPTT Coag (PPP) [Time] 74 s High [facility] No Panel Informationon 02-22 Interpretation and review of laboratory results Abnormal [facility] Interpretation and review of laboratory results Abnormal [facility] Interpretation and review of laboratory results Normal [facility] No Panel InformationOrdered By: Isidra Donnelly on 02-22-2025 Interpretation and review of laboratory results Abnormal [facility] PROTIME-INRon 02-22-2025 INR Coag (PPP) [Relative time] 1.1 {INR} Normal 0.9-1.1 [facility] Comment on above: Performed By: #### X M #### [facility] (DEFAULT) [address] [place] [address] PT Coag (PPP) [Time] 14.2 s Normal 11.9-14.2 [facility] Comment on above: Performed By: #### X M #### [facility] (DEFAULT) [address] [place] [id number] PTTon 02-22-2025 aPTT Coag (Bld) [Time] 93.6 s High 24.0-34.3 [facility] Comment on above: Order Comment: After [...] instructions. Performed By: #### P TT #### [facility] (DEFAULT) [address] [place] [address] 5[address]31 aPTT Coag (Bld) [Time] 74.0 s High 24.0-34.3 [facility] Comment on above: Order Comment: After [...] instructions. Performed By: #### X M #### [facility] (DEFAULT) [address] [place] [address] 72224 aPTT Coag (Bld) [Time] 49.7 s High 24.0-34.3 [facility] Comment on above: Order Comment: After [...] Performed By: #### X M #### [facility] (DEFAULT) [address] [place] [address] 68087 CALCIUMon 02-21-2025 Calcium [Mass/Vol] 8.3 mg/dL Low 8.6-10.5 [facility] Comment on above: Performed By: #### S URGP #### [facility] (DEFAULT) [address] [place] [address] 68923 CBC,PLATELETSon 02-21-2025 Hematocrit (Bld) [Volume fraction] 27.2 % Low 39.6-48.8 [facility] Comment on above: Performed By: #### H EMOGC #### [facility] (DEFAULT) [address] [place] [address] 50871 Hemoglobin (Bld) [Mass/Vol] 8.1 g/dL Low 13.4-16.8 [facility] Comment on above: Performed By: #### H EMOGC #### [facility] (DEFAULT) [address] [place] [address] 59844 MCV (RBC) [Entitic vol] 109.7 fL High 79.0-94.5 [facility] Comment on above: Performed By: #### H EMOGC #### [facility] (DEFAULT) [address] [place] [address] 54264 Mean Cell Hgb 32.7 pg Normal 26.1-33.3 [facility] Comment on above: Performed By: #### H EMOGC #### [facility] (DEFAULT) [address] [address] Mean Cell Hgb Conc 29.8 g/dL Low 31.9-36.5 [facility] Comment on above: Performed By: #### H EMOGC #### [facility] (DEFAULT) [address] [place] [address] 02017 Platelet mean volume (Bld) [Entitic vol] 11.0 fL Normal 8.7-12.3 [facility] Comment on above: Performed By: #### H EMOGC #### [facility] (DEFAULT) [address] [address] Platelets (Bld) [#/Vol] 141 10*3/uL Low 146-337 [facility] Comment on above: Performed By: #### H EMOGC #### [facility] (DEFAULT) [address] [place] [address] 29099 RBC (Bld) [#/Vol] 2.48 10*6/uL Low 4.38-5.83 [facility] Comment on above: Performed By: #### H EMO #### [facility] (DEFAULT) [address] [place] [address] 00407 RBC Distribution 19.1 % High 10.9-14.3 [facility] Comment on above: Performed By: #### H EMOGC #### [facility] (DEFAULT) [address] [place] [address] 75190 WBC (Bld) [#/Vol] 8.97 10*3/uL Normal 3.73-10.10 [facility] Comment on above: Performed By: #### H [facility] #### [facility] (DEFAULT) [address] [place] [address] 82471 CHEM 7 (LYTES,BUN,CREA,GLUC) on 02-21-2025 Anion gap [Moles/Vol] 17 mmol/L Normal 7-17 [facility] Comment on above: Performed By: #### G EN #### [facility] (DEFAULT) [address] [place] [address] 28037 Chloride [Moles/Vol] 99 mmol/L Normal 98-108 [facility] Comment on above: Performed By: #### G EN #### [facility] (DEFAULT) [address] [place] [address] 30147 CO2 [Moles/Vol] 23 mmol/L Normal 21-31 [facility] Comment on above: Performed By: #### G EN #### [facility] (DEFAULT) [address] [address] Creatinine [Mass/Vol] 6.62 mg/dL High 0.70-1.30 [facility] Comment on above: Performed By: #### G EN #### [facility] (DEFAULT) [address] [place] [address] 82508 GFR/1.73 sq M.predicted among non-blacks MDRD (S/P/Bld) [Vol rate/Area] 8 mL/min/{1.73_m2} Low >=60 [facility] Comment on above: Result Comment: Repo rted eGFR is based on the CKD-EPI 2020 equation using creatinine, age, and sex. Performed By: #### G EN #### [facility] (DEFAULT) [address] [place] [address] 78264 Glucose [Mass/Vol] 108 mg/dL Normal Nonfastin -179 mg/dL; Fastin-99 [facility] Comment on above: Performed By: #### G EN #### [facility] (DEFAULT) [address] [place] [address] 81684 Osmolality [Osmolality] 289 mosm/kg Normal 278-305 [facility] Comment on above: Performed By: #### G EN #### [facility] (DEFAULT) [address] [place] [address] 88647 Potassium [Moles/Vol] 3.7 mmol/L Normal 3.5-5.0 [facility] Comment on above: Performed By: #### G EN #### [facility] (DEFAULT) [address] [place] [address] 07419 Sodium [Moles/Vol] 135 mmol/L Normal 135-145 [facility] Comment on above: Performed By: #### G EN #### [facility] (DEFAULT) [address] [place] [address] 18840 Urea nitrogen [Mass/Vol] 28 mg/dL High 7-25 [facility] Comment on above: Performed By: #### G EN #### [facility] (DEFAULT) [address] [place] [address] 47628 Urea nitrogen/Creatinine [Mass ratio] 4 mg/mg Normal [facility] Comment on above: Performed By: #### G EN #### [facility] (DEFAULT) [address] [place] [address] Laboratory - Chemistry and C hemistry - challengeOrdered By: Summer Thompson on 02-21-2025 Anion gap [Moles/Vol] 17 mmol/L 7 - 17 [facility] Chlor[facility] [Moles/Vol] 99 mmol/L 98 - 10 8 [facility]L [facility] CO2 [Moles/Vol] 23 mmol/L 21 - 31 mmol/L [facility] Creatinine [Mass/Vol] 6.62 mg/dL High 0.70 - 1.30 mg/dL [facility] Glucose [Mass/Vol] 108 mg/dL 70 - 179 mg/dL [facility] Osmolality Calc [Osmolality] 289 [facility] Potassium [Moles/Vol] 3.7 mmol/L 3.5 - 5.0 mmol/L [facility] Sodium [Moles/Vol] 135 mmol/L 135 - 145 mmol/L [facility] Urea nitrogen [Mass/Vol] 28 mg/dL High 7 - 25 mg/dL [facility] Urea nitrogen/Creatinine [Mass ratio] 4 mg/mg [facility] Laboratory - Chemistry and C hemistry - challengeon 02-21-2025 Calcium [Mass/Vol] 8.3 mg/dL Low 8.6 - 10. 5 mg/dL [facility] Magnesium [Mass/Vol] 1.5 mg/dL Low 1.6 - 2 .6 mg/dL [facility] Phosphate [Mass/Vol] 3.2 mg/dL 2.2 - 4 .6 mg/dL [facility] Laboratory - CoagulationOrde red By: Linh Jang on 02-21-2025 aPTT Coag (PPP) [Time] 132.7 s High OS [facility] Laboratory - Coagulationon 0 02-21-2025 aPTT Coag (PPP) [Time] 93.9 s High OS [facility] INR Coag (Bld) [Relative time] 1.2 {INR} High 0.9 - 1.1 [facility] PT Coag (PPP) [Time] 14.8 [facility]ematology and Cell countson 02-21-2025 Erythrocyte distribution width (RBC) [Ratio] 19.1 % High 10.9 - 14.3 % [facility] Hematocrit (Bld) [Volume fraction] 27.2 % Low 39.6 - 48.8 % [facility] Hemoglobin (Bld) [Mass/Vol] 8.1 g/dL Low 13.4 - 16.8 g/dL [facility] MCH (RBC) [Entitic mass] 32.7 pg 26.1 - 33.[address] [facility] MCHC (RBC) [Mass/Vol] 29.8 g/dL Low 31.9 - 36.5 g/dL [facility] MCV (RBC) [Entitic vol] 109.7 fL High 79.0 - 94.[address] [facility] Platelet mean volume (Bld) [Entitic vol] 11 fL 8.7 - 12.[address] [facility] Platelets (Bld) [#/Vol] 141 10*3/uL Low 146 - 337 K/uL [facility] RBC (Bld) [#/Vol] 2.48 10*6/uL Low [facility] WBC (Bld) [#/Vol] 8.97 10*3/uL 3.73 - 10. 10 K/uL [facility] MAGNESIUMon 02-21-2025 Magnesium [Mass/Vol] 1.5 mg/dL Low 1.6-2.6 [facility] Comment on above: Performed By: #### G EN #### [facility] (DEFAULT) [address] [place] [address] No Panel InformationOrdered By: Linh Jang on 02-21-2025 Interpretation and review of laboratory results Abnormal [facility] No Panel Informationon 02-21 Interpretation and review of laboratory results Abnormal [facility] ABO/RH(D) TYPE Positive [facility] Specimen Expiration 02/24/2025 01:05 [facility] Interpretation and review of laboratory results Abnormal [facility] Interpretation and review of laboratory results Normal [facility] Interpretation and review of laboratory results Abnormal [facility] Interpretation and review of laboratory results Abnormal [facility] No Panel InformationOrdered By: Summer Thompson on 02-21-2025 eGFR, CKD-EPI, Male 8 Low - PINF [facility] Interpretation and review of laboratory results Abnormal [facility] PHOSPHATE, INORGANICon 02-21 Phosphorous 3.2 mg/dL Normal 2.2-4.6 [facility] Comment on above: Performed By: #### G EN #### [facility] (DEFAULT) [address] [place] [address]453 PROTIME-INRon 02-21-2025 INR Coag (PPP) [Relative time] 1.2 {INR} High 0.9-1.1 [facility] Comment on above: Performed By: #### X M #### [facility] (DEFAULT) [address] [place] [address]335 PT Coag (PPP) [Time] 14.8 s High 11.9-14.2 [facility] Comment on above: Performed By: #### X M #### [facility] (DEFAULT) [address] [place] [address] 97102 PTTon 02-21-2025 aPTT Coag (Bld) [Time] 132.7 s High 24.0-34.3 [facility] Comment on above: Order Comment: After [...] Performed By: #### X M #### [facility] (DEFAULT) [address] [address] aPTT Coag (Bld) [Time] 93.9 s High 24.0-34.3 [facility] Comment on above: Order Comment: After [...] instructions. Performed By: #### G EN #### [facility] (DEFAULT) [address] [address] TYPE AND SCREENon 02-21-2025 ABO/RH(D) TYPE Positive Normal [facility] Comment on above: Performed By: #### S URGP #### [facility] (DEFAULT) [address] [address] Specimen Expiration 02/24/2025 01:05 Normal [facility] Comment on above: Performed By: #### S URGP #### [facility] (DEFAULT) [address] [address] CBC,PLATELETSon 02-20-2025 Hematocrit (Bld) [Volume fraction] 27.2 % Low 39.6-48.8 [facility] Comment on above: Performed By: #### H EMOGC #### [facility] (DEFAULT) [address] [address] Hemoglobin (Bld) [Mass/Vol] 8.2 g/dL Low 13.4-16.8 [facility] Comment on above: Performed By: #### H EMOGC #### [facility] (DEFAULT) [address] [address] MCV (RBC) [Entitic vol] 111.0 fL High 79.0-94.5 [facility] Comment on above: Performed By: #### H EMOGC #### [facility] (DEFAULT) [address] [address] Mean Cell Hgb 33.5 pg High 26.1-33.3 [facility] Comment on above: Performed By: #### H EMOGC #### [facility] (DEFAULT) [address] [address] Mean Cell Hgb Conc 30.1 g/dL Low 31.9-36.5 [facility] Comment on above: Performed By: #### H EMOGC #### [facility] (DEFAULT) [address] [address] Platelet mean volume (Bld) [Entitic vol] 9.5 fL Normal 8.7-12.3 [facility] Comment on above: Performed By: #### H EMOGC #### [facility] (DEFAULT) [address] [address] Platelets (Bld) [#/Vol] 169 10*3/uL Normal 146-337 [facility] Comment on above: Performed By: #### H EMOADA #### [facility] (DEFAULT) [address] [address] RBC (Bld) [#/Vol] 2.45 10*6/uL Low 4.38-5.83 [facility] Comment on above: Performed By: #### H EMOGC #### [facility] (DEFAULT) [address] [address] RBC Distribution 19.2 % High 10.9-14.3 [facility] Comment on above: Performed By: #### H EMOGC #### [facility] (DEFAULT) [address] [address] WBC (Bld) [#/Vol] 9.07 10*3/uL Normal 3.73-10.10 [facility] Comment on above: Performed By: #### H EMOGC #### [facility] [address] [place] [address] CHEM 7 (LYTES,BUN,CREA,GLUC) on 02-20-2025 Anion gap [Moles/Vol] 15 mmol/L Normal 7-17 [facility] Comment on above: Performed By: #### P TT #### [facility] (DEFAULT) [address] [place] [address] 89156 Chloride [Moles/Vol] 98 mmol/L Normal 98-108 [facility] Comment on above: Performed By: #### P TT #### [facility] (DEFAULT) [address] [place] [address] 87087 CO2 [Moles/Vol] 28 mmol/L Normal 21-31 [facility] Comment on above: Performed By: #### P TT #### [facility] (DEFAULT) [address] [place] [address] 55288 Creatinine [Mass/Vol] 4.40 mg/dL High 0.70-1.30 [facility] Comment on above: Performed By: #### P TT #### [facility] (DEFAULT) [address] [place] [address] 54710 GFR/1.73 sq M.predicted among non-blacks MDRD (S/P/Bld) [Vol rate/Area] 13 mL/min/{1.73_m2} Low >=60 [facility] Comment on above: Result Comment: Repo rted eGFR is based on the CKD-EPI 2020 equation using creatinine, age, and sex. Performed By: #### P TT #### [facility] (DEFAULT) [address] [place] [address] 54782 Glucose [Mass/Vol] 99 mg/dL Normal Nonfastin -179 mg/dL; Fastin-99 [facility] Comment on above: Performed By: #### P TT #### [facility] (DEFAULT) [address] [place] [address] 18979 Osmolality [Osmolality] 288 mosm/kg Normal 278-305 [facility] Comment on above: Performed By: #### P TT #### [facility] (DEFAULT) [address] [place] [address] 02713 Potassium [Moles/Vol] 4.0 mmol/L Normal 3.5-5.0 [facility] Comment on above: Performed By: #### P TT #### [facility] (DEFAULT) [address] [place] [address] 88816 Sodium [Moles/Vol] 137 mmol/L Normal 135-145 [facility] Comment on above: Performed By: #### P TT #### [facility] (DEFAULT) [address] [place] [address] 14210 Urea nitrogen [Mass/Vol] 14 mg/dL Normal 7-25 [facility] Comment on above: Performed By: #### P TT #### [facility] (DEFAULT) [address] [place] [address] 30077 Urea nitrogen/Creatinine [Mass ratio] 3 mg/mg Normal [facility] Comment on above: Performed By: #### P TT #### [facility] (DEFAULT) [address] [place] [address] 29556 Laboratory - Chemistry and C hemistry - challengeon 02-20-2025 Anion gap [Moles/Vol] 15 mmol/L 7 - 17 mmol/L [facility] Chloride [Moles/Vol] 98 mmol/L 98 - 10 8 mmol/L [facility] CO2 [Moles/Vol] 28 mmol/L 21 - 31 mmol/L [facility] Creatinine [Mass/Vol] 4.4 mg/dL High 0.70 - 1.30 mg/dL [facility] Glucose [Mass/Vol] 99 mg/dL 70 - 179 mg/dL [facility] Osmolality Calc [Osmolality] 288 [facility] Potassium [Moles/Vol] 4 mmol/L 3.5 - 5.0 mmol/L [facility] Sodium [Moles/Vol] 137 mmol/L 135 - 145 mmol/L [facility] Urea nitrogen [Mass/Vol] 14 mg/dL 7 - 25 mg/dL [facility] Urea nitrogen/Creatinine [Mass ratio] 3 mg/mg [facility] Magnesium [Mass/Vol] 1.7 mg/dL 1.6 - 2 .6 mg/dL [facility] Phosphate [Mass/Vol] 2.1 mg/dL Low 2.2 - 4 .6 mg/dL [facility] Laboratory - Coagulationon 0 02-20-2025 aPTT Coag (PPP) [Time] 93.3 s High [facility] aPTT Coag (PPP) [Time] 88.2 s High [facility] INR Coag (Bld) [Relative time] 1.1 {INR} 0.9 - 1.1 [facility] PT Coag (PPP) [Time] 14.5 s [facility] Cell countson 02-20-2025 Erythrocyte distribution width (RBC) [Ratio] 19.2 % High 10.9 - 14.3 % [facility] Hematocrit (Bld) [Volume fraction] 27.2 % Low 39.6 - 48.8 % [facility] Hemoglobin (Bld) [Mass/Vol] 8.2 g/dL Low 13.4 - 16.8 g/dL [facility] MCH (RBC) [Entitic mass] 33.5 pg High 26.1 - 33.[address] [facility] MCHC (RBC) [Mass/Vol] 30.1 g/dL Low 31.9 - 36.5 g/dL [facility] MCV (RBC) [Entitic vol] 111 fL High 79.0 - 94.[address] [facility] Platelet mean volume (Bld) [Entitic vol] 9.5 fL 8.7 - 12.[address] [facility] Platelets (Bld) [#/Vol] 169 10*3/uL 146 - 337 K/uL [facility] RBC (Bld) [#/Vol] 2.45 10*6/uL Low [facility] WBC (Bld) [#/Vol] 9.07 10*3/uL 3.73 - 10. 10 K/uL [facility] MAGNESIUMon 02-20-2025 Magnesium [Mass/Vol] 1.7 mg/dL Normal 1.6-2.6 [facility] Comment on above: Performed By: #### P TT #### [facility] (DEFAULT) [address] [place] [address] No Panel Informationon 02-20 Interpretation and review of laboratory results Abnormal [facility] Interpretation and review of laboratory results Abnormal [facility] eGFR, CKD-EPI, Male 13 Low - PINF [facility] Interpretation and review of laboratory results Abnormal [facility] Interpretation and review of laboratory results Normal [facility] Interpretation and review of laboratory results Abnormal [facility] Interpretation and review of laboratory results Abnormal [facility] Interpretation and review of laboratory results Abnormal [facility] PHOSPHATE, INORGANICon 02-20 Phosphorous 2.1 mg/dL Low 2.2-4.6 [facility] Comment on above: Performed By: #### P TT #### [facility] (DEFAULT) [address] [place] [address] 97077 PROTIME-INRon 02-20-2025 INR Coag (PPP) [Relative time] 1.1 {INR} Normal 0.9-1.1 [facility] Comment on above: Performed By: #### X M #### [facility] (DEFAULT) [address] [place] [address] 91456 PT Coag (PPP) [Time] 14.5 s High 11.9-14.2 [facility] Comment on above: Performed By: #### X M #### [facility] (DEFAULT) [address] [place] [address] 41434 PTTon 02-20-2025 aPTT Coag (Bld) [Time] 93.3 s High 24.0-34.3 [facility] Comment on above: Order Comment: After [...] instructions. Performed By: #### X M #### [facility] (DEFAULT) [address] [address] aPTT Coag (Bld) [Time] 88.2 s High 24.0-34.3 [facility] Comment on above: Order Comment: After [...] Performed By: #### X M #### [facility] (DEFAULT) [address] [place] [address] 43435 CBC,PLATELETSon 02-19-2025 Hematocrit (Bld) [Volume fraction] 26.3 % Low 39.6-48.8 [facility] Comment on above: Performed By: #### X M #### [facility] (DEFAULT) [address] [place] [address] 48486 Hemoglobin (Bld) [Mass/Vol] 8.0 g/dL Low 13.4-16.8 [facility] Comment on above: Performed By: #### X M #### [facility] (DEFAULT) [address] [place] [address] 57204 MCV (RBC) [Entitic vol] 110.5 fL High 79.0-94.5 [facility] Comment on above: Performed By: #### X M #### [facility] (DEFAULT) [address] [place] [address] 83889 Mean Cell Hgb 33.6 pg High 26.1-33.3 [facility] Comment on above: Performed By: #### X M #### [facility] (DEFAULT) [address] [place] [address] 83796 Mean Cell Hgb Conc 30.4 g/dL Low 31.9-36.5 [facility] Comment on above: Performed By: #### X M #### [facility] (DEFAULT) [address] [place] [address]389 Platelet mean volume (Bld) [Entitic vol] 10.0 fL Normal 8.7-12.3 [facility] Comment on above: Performed By: #### X M #### [facility] (DEFAULT) [address] [place] [address] 14909 Platelets (Bld) [#/Vol] 166 10*3/uL Normal 146-337 [facility] Comment on above: Performed By: #### X M #### [facility] (DEFAULT) [address] [place] [address] 85240 RBC (Bld) [#/Vol] 2.38 10*6/uL Low 4.38-5.83 [facility] Comment on above: Performed By: #### X M #### [facility] (DEFAULT) [address] [place] [address] 03288 RBC Distribution 19.2 % High 10.9-14.3 [facility] Comment on above: Performed By: #### X M #### [facility] (DEFAULT) [address] [place] [address] 84064 WBC (Bld) [#/Vol] 9.51 10*3/uL Normal 3.73-10.10 [facility] Comment on above: Performed By: #### X M #### [facility] (DEFAULT) [address] [place] [address] 99156 CHEM 7 (LYTES,BUN,CREA,GLUC) on 02-19-2025 Anion gap [Moles/Vol] 17 mmol/L Normal 7-17 [facility] Comment on above: Performed By: #### G EN #### [facility] (DEFAULT) [address] [place] [address] 91868 Chloride [Moles/Vol] 99 mmol/L Normal 98-108 [facility] Comment on above: Performed By: #### G EN #### [facility] (DEFAULT) [address] [place] [address] 48865 CO2 [Moles/Vol] 25 mmol/L Normal 21-31 [facility] Comment on above: Performed By: #### G EN #### [facility] (DEFAULT) [address] [place] [address] 33672 Creatinine [Mass/Vol] 7.51 mg/dL High 0.70-1.30 [facility] Comment on above: Performed By: #### G EN #### [facility] (DEFAULT) [address] [place] [address] 20422 GFR/1.73 sq M.predicted among non-blacks MDRD (S/P/Bld) [Vol rate/Area] 7 mL/min/{1.73_m2} Low >=60 [facility] Comment on above: Result Comment: Repo rted eGFR is based on the CKD-EPI 2020 equation using creatinine, age, and sex. Performed By: #### G EN #### [facility] (DEFAULT) [address] [place] [address] Glucose [Mass/Vol] 93 mg/dL Normal Nonfastin -179 mg/dL; Fastin-99 [facility] Comment on above: Performed By: #### G EN #### [facility] (DEFAULT) [address] [place] [address] Osmolality [Osmolality] 291 mosm/kg Normal 278-305 [facility] Comment on above: Performed By: #### G EN #### [facility] (DEFAULT) [address] [place] [address] Potassium [Moles/Vol] 3.8 mmol/L Normal 3.5-5.0 [facility] Comment on above: Performed By: #### G EN #### [facility] (DEFAULT) [address] [place] [address] Sodium [Moles/Vol] 137 mmol/L Normal 135-145 [facility] Comment on above: Performed By: #### G EN #### [facility] (DEFAULT) [address] [place] [address] Urea nitrogen [Mass/Vol] 27 mg/dL High 7-25 [facility] Comment on above: Performed By: #### G EN #### [facility] (DEFAULT) [address] [place] [address] Urea nitrogen/Creatinine [Mass ratio] 4 mg/mg Normal [facility] Comment on above: Performed By: #### G EN #### [facility] (DEFAULT) [address] [place] [address] Laboratory - Chemistry and C hemistry - challengeOrdered By: Fernanda Mcgill on 02-19-2025 Anion gap [Moles/Vol] 17 mmol/L 7 - 17 mmol/L [facility] Chloride [Moles/Vol] 99 mmol/L 98 - 10 8 mmol/L [facility] CO2 [Moles/Vol] 25 mmol/L 21 - 31 mmol/L [facility] Creatinine [Mass/Vol] 7.51 mg/dL High 0.70 - 1.30 mg/dL [facility] Glucose [Mass/Vol] 93 mg/dL 70 - 179 mg/dL [facility] Osmolality Calc [Osmolality] 291 [facility] Potassium [Moles/Vol] 3.8 mmol/L 3.5 - 5.0 mmol/L [facility] Sodium [Moles/Vol] 137 mmol/L 135 - 145 mmol/L [facility] Urea nitrogen [Mass/Vol] 27 mg/dL High 7 - 25 mg/dL [facility] Urea nitrogen/Creatinine [Mass ratio] 4 [facility] and C hem[facility] - challengeon 02-19-2025 Magnesium [Mass/Vol] 1.6 mg/dL 1.6 - 2 .6 mg/dL [facility] Phosphate [Mass/Vol] 3.2 mg/dL 2.2 - 4 .6 mg/dL [facility] Laboratory - Coagulationon 0 02-19-2025 aPTT Coag (PPP) [Time] 93.2 s High [facility] aPTT Coag (PPP) [Time] 95.8 s High [facility] aPTT Coag (PPP) [Time] 93.3 s High [facility] INR Coag (Bld) [Relative time] 1.2 {INR} High 0.9 - 1.1 [facility] PT Coag (PPP) [Time] 15.[address] [facility] Laboratory - Hematology and Cell countson 02-19-2025 Erythrocyte distribution width (RBC) [Ratio] 19.2 % High 10.9 - 14.3 % [facility] Hematocrit (Bld) [Volume fraction] 26.3 % Low 39.6 - 48.8 % [facility] Hemoglobin (Bld) [Mass/Vol] 8 g/dL Low 13.4 - 16.8 g/dL [facility] MCH (RBC) [Entitic mass] 33.6 pg High 26.1 - 33.[address] [facility] MCHC (RBC) [Mass/Vol] 30.4 g/dL Low 31.9 - 36.5 g/dL [facility] MCV (RBC) [Entitic vol] 110.5 fL High 79.0 - 94.[address] [facility] Platelet mean volume (Bld) [Entitic vol] 10 fL 8.7 - 12.[address] [facility] Platelets (Bld) [#/Vol] 166 10*3/uL 146 - 337 K/uL [facility] RBC (Bld) [#/Vol] 2.38 10*6/uL Low [facility] WBC (Bld) [#/Vol] 9.51 10*3/uL 3.73 - 10. 10 K/uL [facility] MAGNESIUMon 02-19-2025 Magnesium [Mass/Vol] 1.6 mg/dL Normal 1.6-2.6 [facility] Comment on above: Performed By: #### G EN #### [facility] (DEFAULT) [address] [place] [address] No Panel Informationon 02-19 Interpretation and review of laboratory results Abnormal [facility] Interpretation and review of laboratory results Abnormal [facility] Interpretation and review of laboratory results Abnormal [facility] Interpretation and review of laboratory results Abnormal [facility] Interpretation and review of laboratory results Normal [facility] Interpretation and review of laboratory results Abnormal [facility] No Panel InformationOrdered By: Fernanda Mcgill on 02-19-2025 eGFR, CKD-EPI, Male 7 Low - PINF [facility] Interpretation and review of laboratory results Abnormal [facility] PHOSPHATE, INORGANICon 02-19 Phosphorous 3.2 mg/dL Normal 2.2-4.6 [facility] Comment on above: Performed By: #### G EN #### [facility] (DEFAULT) [address] [place] [address] PROTIME-INRon 02-19-2025 INR Coag (PPP) [Relative time] 1.2 {INR} High 0.9-1.1 [facility] Comment on above: Performed By: #### S URGP #### [facility] (DEFAULT) [address] [place] [address] PT Coag (PPP) [Time] 15.4 s High 11.9-14.2 [facility] Comment on above: Performed By: #### S URGP #### [facility] (DEFAULT) [address] [place] [address] PTTon 02-19-2025 aPTT Coag (Bld) [Time] 93.2 s High 24.0-34.3 [facility] Comment on above: Order Comment: After [...] administration instructions. Performed By: #### P TT ####[facility] (DEFAULT)[address] [place] [address] aPTT Coag (Bld) [Time] 95.8 s High 24.0-34.3 [facility] Comment on above: Order Comment: After [...] instructions. Performed By: #### P TT #### [facility] (DEFAULT) [address] [place] [address] aPTT Coag (Bld) [Time] 93.3 s High 24.0-34.3 [facility] Comment on above: Order Comment: After [...] Performed By: #### S URGP #### [facility] (DEFAULT) [address] [address] CBC,PLATELETSon 02-18-2025 Hematocrit (Bld) [Volume fraction] 26.8 % Low 39.6-48.8 [facility] Comment on above: Performed By: #### P TT #### [facility] (DEFAULT) [address] [address] Hemoglobin (Bld) [Mass/Vol] 8.2 g/dL Low 13.4-16.8 [facility] Comment on above: Performed By: #### P TT #### [facility] (DEFAULT) [address] [address] MCV (RBC) [Entitic vol] 110.3 fL High 79.0-94.5 [facility] Comment on above: Performed By: #### P TT #### [facility] (DEFAULT) [address] [address] Mean Cell Hgb 33.7 pg High 26.1-33.3 [facility] Comment on above: Performed By: #### P TT #### [facility] (DEFAULT) [address] [address] Mean Cell Hgb Conc 30.6 g/dL Low 31.9-36.5 [facility] Comment on above: Performed By: #### P TT #### [facility] (DEFAULT) [address] [address] Platelet mean volume (Bld) [Entitic vol] 10.1 fL Normal 8.7-12.3 [facility] Comment on above: Performed By: #### P TT #### [facility] (DEFAULT) [address] [place] [address] Platelets (Bld) [#/Vol] 188 10*3/uL Normal 146-337 [facility] Comment on above: Performed By: #### P TT #### [facility] (DEFAULT) [address] [place] [address] RBC (Bld) [#/Vol] 2.43 10*6/uL Low 4.38-5.83 [facility] Comment on above: Performed By: #### P TT #### [facility] (DEFAULT) [address] [place] [address] RBC Distribution 19.2 % High 10.9-14.3 [facility] Comment on above: Performed By: #### P TT #### [facility] (DEFAULT) [address] [place] [address] WBC (Bld) [#/Vol] 9.23 10*3/uL Normal 3.73-10.10 [facility] Comment on above: Performed By: #### P TT #### [facility] (DEFAULT) [address] [place] [address] CHEM 7 (LYTES,BUN,CREA,GLUC) on 02-18-2025 Anion gap [Moles/Vol] 17 mmol/L Normal 7-17 [facility] Comment on above: Performed By: #### X M #### [facility] (DEFAULT) [address] [place] [address] Chloride [Moles/Vol] 98 mmol/L Normal 98-108 [facility] Comment on above: Performed By: #### X M #### [facility] (DEFAULT) [address] [place] [address] CO2 [Moles/Vol] 25 mmol/L Normal 21-31 [facility] Comment on above: Performed By: #### X M #### [facility] (DEFAULT) [address] [place] [address] Creatinine [Mass/Vol] 4.82 mg/dL High 0.70-1.30 [facility] Comment on above: Performed By: #### X M #### [facility] (DEFAULT) [address] [place] [address] GFR/1.73 sq M.predicted among non-blacks MDRD (S/P/Bld) [Vol rate/Area] 12 mL/min/{1.73_m2} Low >=60 [facility] Comment on above: Result Comment: Repo rted eGFR is based on the CKD-EPI 2020 equation using creatinine, age, and sex. Performed By: #### X M #### [facility] (DEFAULT) [address] [place] [address] Glucose [Mass/Vol] 84 mg/dL Normal Nonfastin -179 mg/dL; Fastin-99 [facility] Comment on above: Performed By: #### X M #### [facility] (DEFAULT) [address] [place] [address] Osmolality [Osmolality] 286 mosm/kg Normal 278-305 [facility] Comment on above: Performed By: #### X M #### [facility] (DEFAULT) [address] [place] [address] Potassium [Moles/Vol] 4.2 mmol/L Normal 3.5-5.0 [facility] Comment on above: Performed By: #### X M #### [facility] (DEFAULT) [address] [address] Sodium [Moles/Vol] 136 mmol/L Normal 135-145 [facility] Comment on above: Performed By: #### X M #### [facility] (DEFAULT) [address] [place] [address] Urea nitrogen [Mass/Vol] 16 mg/dL Normal 7-25 [facility] Comment on above: Performed By: #### X M #### [facility] (DEFAULT) [address] [place] [address] Urea nitrogen/Creatinine [Mass ratio] 3 mg/mg Normal [facility] Comment on above: Performed By: #### X M #### [facility] (DEFAULT) [address] [place] [address] Laboratory - Chemistry and C hemistry - challengeon 02-18-2025 Phosphate [Mass/Vol] 2.7 mg/dL 2.2 - 4 .6 [facility] Anion gap [Moles/Vol] 17 mmol/L 7 - 17 mmol/L [facility] Chloride [Moles/Vol] 98 mmol/L 98 - 10 8 mmol/L [facility] CO2 [Moles/Vol] 25 mmol/L 21 - 31 mmol/L [facility] Creatinine [Mass/Vol] 4.82 mg/dL High 0.70 - 1.30 mg/dL [facility] Glucose [Mass/Vol] 84 mg/dL 70 - 179 mg/dL [facility] Magnesium [Mass/Vol] 1.7 mg/dL 1.6 - 2 .6 mg/dL [facility] Osmolality Calc [Osmolality] 286 [facility] Potassium [Moles/Vol] 4.2 mmol/L 3.5 - 5.0 mmol/L [facility] Sodium [Moles/Vol] 136 mmol/L 135 - 145 mmol/L [facility] Urea nitrogen [Mass/Vol] 16 mg/dL 7 - 25 mg/dL [facility] Urea nitrogen/Creatinine [Mass ratio] 3 mg/mg [facility] Laboratory - Coagulationon 0 02-18-2025 aPTT Coag (PPP) [Time] 91.2 s High OS [facility] aPTT Coag (PPP) [Time] 80.4 s High OS [facility] INR Coag (Bld) [Relative time] 1.4 {INR} High 0.9 - 1.1 [facility] PT Coag (PPP) [Time] 16.[address] [facility] aPTT Coag (PPP) [Time] 64.5 s High OS [facility] - CoagulationOrde red By: Marybeth Bach on 02-18-2025 aPTT Coag (PPP) [Time] 49.3 s High OS [facility] - Hematology and Cell countson 02-18-2025 Erythrocyte distribution width (RBC) [Ratio] 19.2 % High 10.9 - 14.3 % [facility] Hematocrit (Bld) [Volume fraction] 26.8 % Low 39.6 - 48.8 % [facility] Hemoglobin (Bld) [Mass/Vol] 8.2 g/dL Low 13.4 - 16.8 g/dL [facility] MCH (RBC) [Entitic mass] 33.7 pg High 26.1 - 33.[address] [facility] MCHC (RBC) [Mass/Vol] 30.6 g/dL Low 31.9 - 36.5 g/dL [facility] MCV (RBC) [Entitic vol] 110.3 fL High 79.0 - 94.[address] [facility] Platelet mean volume (Bld) [Entitic vol] 10.1 fL 8.7 - 12.[address] [facility] Platelets (Bld) [#/Vol] 188 10*3/uL 146 - 337 K/uL [facility] RBC (Bld) [#/Vol] 2.43 10*6/uL [facility] ([facility] [#/Vol] 9.23 10*3/uL 3.73 - 10. 10 K/uL [facility] Platelet mean volume (Bld) [Entitic vol] 10.3 fL 8.7 - 12.[address] [facility] Platelets (Bld) [#/Vol] 186 10*3/uL 146 - 337 K/uL [facility] MAGNESIUMon 02-18-2025 Magnesium [Mass/Vol] 1.7 mg/dL Normal 1.6-2.6 [facility] Comment on above: Performed By: #### X M #### [facility] (DEFAULT) [address] [place] [address] No Panel Informationon 02-18 Interpretation and review of laboratory results Abnormal [facility] Interpretation and review of laboratory results Abnormal [facility] Interpretation and review of laboratory results Abnormal [facility] ABO/RH(D) TYPE Positive [facility] Specimen Expiration 02/21/2025 03:43 [facility] Interpretation and review of laboratory results Abnormal [facility] Interpretation and review of laboratory results Normal [facility] eGFR, CKD-EPI, Male 12 Low - PINF [facility] Interpretation and review of laboratory results Abnormal [facility] Interpretation and review of laboratory results Normal [facility] Interpretation and review of laboratory results Abnormal [facility] Interpretation and review of laboratory results Normal [facility] No Panel InformationOrdered By: Faith Pina on 02-18-[address] [facility] Work Phone: Clinical History [id number] NVxh wiHwPVWyuNOvA7CacdlcVQpj MW7bFC7ifLxllHXjcDSfYORq TuGay7lpn200mLZpu5nvRHMX hhurpFu5lQibH79do7N9Gkth Z0udFPHtDEfxAVOmSGgkgWJi VKp2OGHzoJMbrzMsEeZiSOCa mCRjuEI1EXDoWQ4xwghyHOzf YWawJPNvppP9AJVpkXGvY6Vf UAWbBO2vfddzBBC0VGatYYNz KWJ5BwMrCJBel7Dmvhz0AtVx yVp2y0rmOMUeRJHgcKxdj1bg OLW9ICSilZJaU1lkaS0sUAQn XT0opzxui4hhPTezQKmlJSCx wQM5ifH2APBynVWeW1LgpN4w WWYnRCWgiuFdlUyhmN6yYzZy MOemPgOnMb1bCDxnQ8bjpQkb RaIoOp3qEX7ehNktfkViO9fe DHKEPOAsJ7IcNOxoy9Gkjpl5 ICBBdHJpYWwgdGFjaHljYXJk oTVkWCQTr3QrvmBjeMSqsdDm xhhoPGyzVCLxNT4lLQz2nQWg gGPog2ufystuVxJefSdoCdIn N4GbeIO2I7ZtipRqs9dvTFMj QEOcGRFeWOTCJ8RsbxDguY1p yvFewMYmQ0ilIYKjEEXsk06u j7IdirD2oICeTAOhsiVouiBb lZEmrKywOzVjOT5zcQrkWpGc ESAmHS26rUIwTVz9lDIacHCy s8lblzhxRiPfpHajIyIuSDC4 aHJpdGlzLiAgSGVtYXRvbWEu MFUNtA2pfH9yQW4fREbjuRY3 b6TgIHvvQA1yVBk7aE30wSjl u9lfvTWcLcBmGTWtrWa6iO2w NJ7kWTh0jDIvmIklvVOqfIwv YiRbGJUuzXUoKIFngKR5KRIi NIGGH1ChKL6baIdeUIAbmNIg JAWxyRyoX5YcGT42HgYhJVU3 t93yeJApx9tbXiYyBvStfYfc VKSwg4S1JMAyLuXguNLubaHb KBFgLT3mNLwqhFYcUFUFIECa lEKgTKFoPDMRlTEtTHrnt2Gz vmDvOqJiQ11fQ6BncKl3XXUn TXDndZJpDMrehMUuTYL4wsYg BTYuKkdoZV9uTGOwbiMjb633 g3ZscBx2HvXdF0SlaCopXGYy y7NtGgZvDwldvS3kjYpjLSmz IGG1LLTea8Xtr5TlMVOUwTSl ciBkaXNlYXNlLiAgVHJhbnNp DG29CQbmA7uqtSpuBQY5jEJz cp0fDPlzg1Gch6Kqj5EjZPvd QIfheyQuiSF2GZBfo2Eea9Je JPOTNSk4yOCtbm8kOFYnn8K2 xDYzLOJsb6Svo9PlFQxcAYX0 [facility] Work Phone: For Immediate Release to Patient's MyChart? Yes Yes [facility] Work Phone: Gross Description k4mowIBbQDMug2ahHWBv bGFu ZzEwMzNcZnRuYmpcdWMxIHtc hdOjNNcdnMfqQGRgXENvHE4s lTsevOy7tHugBNRkhfM7sDGd AYnli5taAPC8l2qhnblqYLXd IZmsVa3bqPZxyOwzYfQmADVp OSl6gQ63YJUbfN2ygOXgKJjg zjJyZUChH6TtYS1oELvotVZe PIN0yYrnKJQbckjxOhK9ZWmt XCSpivfoLSq3JBmcGJNoqSD3 RTBjgUSzP9GkDSRcET9ljam8 HIB3SLifBRVjKlG5IHTghOUs KJIujFusUPcmm010JIZ1SiBg LRNzijEnaLgrrK7bPfPwHZFn VGhlIHNwZWNpbWVuIGlzIHJl Z4GkhxQsGVtuGJ8kNMXsyd3o ZXJseSBsYWJlbGVkIGNvbnRh lA7hlpT5bFObPBNdGGKdIHKc SL81Q9NihnMoDWJupnSmOHFt WNBdsO4rSL31fEYnfg0yCDZv ilodAPBxU2EpNMRjF6PxWV6j bPGtPLSoDIEigHHyhV8swjVt weCxZYXcF91ruGTnLSHkeWiu c1zqMDVhwN2iEIS5zxepng3y KRdoI8kmvUqkEFJnP12qnEXp uVdwDY6dzAAgZU2hGOPeniGf a4EdVP7sNW7lZBMaj3Z8EVKl cyKrk6G0vK2hWL2pHVXxd6I8 NNG2dLptdECpsmHjIxJzQ47s aM7wU2DrMWAbv5RyMKgzET0a zM2qLtQcQTIpNXLwkRYtBFEb mgGQQSQwWIWbSC6ytCq3GQcy VebKEKLcFIf3Kdh4BullWLIt kr31ELZ1MoRgw0K0JTDvXjSu YUOaDZ9vaPbeLBMxXS1tHYMx Z3ufbU2ladc2AhFhTRYuVvW4 XGIvuvI1Nyy8RKSnMOwov0iq t4DhZLTrHIj2oXciTvIcKMNp a4ltrwMwUzPxROFyEMBfQLEs bFPoE221k4vce4nekfXuqHO3 GGGuPEM9PZsvvgWjutM1XRsx hWSjYeO9EQdhbzUgUQpfclGy jnNvOgq4PYDrU669IFK2bQvj w6kaQBQ3UYPqWFEmNiCmHt1r bALdI298OPDeHLOVICWsbGs3 GHQluzUcffKqtYWAt283N967 b6hePGUsfhXqmHdRxtdob8sq G023ZCHdnRQzvoQcWdHhPNVv gGTvkPC9TRSbAZ1arsavINov EUjvFIXwecM2DKHhqWLaI8Vv GHEmFC1nffrvDUJ3VKiqLUAm EWU1SwZxIXByc2Lfxjp1AxMe oy9aqs95INT6q5IexIchCWN7 BUG0CsPqLs8tdKWgXQUrRQ1p SdYmdHLsBJZtlj71uFtaPDzn jdBjmM7tMvXdWJUkeNDlHBKe KT7zvOJqHFGalM5fwpbfXNXc EgOxldugPBKjcAtfwcSqIe3d eDeiQRQ3HDgzQ7tjaQ5dQwQ3 RUbsT7dpaI1aTZc2XHmyoSU6 RQVmnJ6oIZ1hgbcpv3euCRua CTeoOYPxllE7tzN0AVSkqSZk S2UxfW0dWQJjHB6mtfoda0uz JYB4TSpvSOWqNUH9ZeBkZOPt f6Julzi4XsPhp2VtfLXrNHkb B20ij414IDWskuKeK4qbrZEy dayqmNSzudthFMxjlzW2JNQf XHBsYWluXGYxXGZzMjJcbGFu ZzEwMzNcaGljaFxmMVxkYmNo CATbIHueU8mxLqCxSkOzIhNM gn7kt4BvHCVdujV6aTqnWGJy j0Iev4PqCgWDtlL1ZQvydWBt cnRccGFyfX0= [facility] Work Phone: Microscopic Description b1fhuACsXFGzg4bj ZGVmbGFu ZzEwMzNcZnRuYmpcdWMxIHtc nmTcJWsmj9IcY3PwNeXlFLaa bnNpXGRlZmxhbmcxMDMzXGZ0 xaZzBWFaGPlnMNDoVJhbOn5z yTBeqDdfFfAlOZBhd2hvhyIQ nbdhoMz9r8wjFGQpWhS6vTBk YVpkV2zszrVxsLYsANAoGHn1 iF82SMUfyZ1vdTUtKDzzkcAg XwU1XLqgWYWoEeJ5EYIcgLTf LDQiW0oqFYGxGDarDMZcWNfw eDIqICA7lJakg2A9jAXeaYNj sIdbGhEyUoCtRvJJo4CqQRf8 rOqgB0DtVHMtQtC8oBTvKAKb TZdvKQMtAYMhfcR4lI33BJac eoO7sUEpi7Vuq41bs642rS8c qOSmCWB7PPQjXFTszEIlFYLy VNN1ANSbuUAfG8hsZFDmXG3s tntpGFhaBPogHENweAR6KNXn fRMoA7CjITZlKWyeICMblmb6 KrKsZf2hnWTvdXarQVgja4dl c6csvUUcJvk9PEWoQsUeLebq WKjoe9Stl1ngXVFsim8zBYU7 rCVogQgfp3G8bZGrIEEwwVVp kgCjGEDjJtR0ESvmJD4bng71 VHXrVIX9cs9bhXAkcDczscDr vIEqDWuaO9ZoYIAff376EDIv G4ReXZYat9G9weFuYlBgCRNq nPI7jgV6IGUzOWs9dNWqifY6 zjQnyKHoD4tlmJ6pBEUrOM1o bfple5bjXRnwPXdxEPYuiSW6 jiQ6MORapCErM3TpgF6hVYNq VHtoDMFfpcs3GsPbQc6tuPQg eTcyMFxzYmtwYWdlXHBnbmNv bnRccGduZGVjXHBsYWluXHBs YWluXGYwXGZzMjRccWxccGxh bN6dZsKmEmLxYTpsSO7uKHWq L1spqOOnJXNcZBVgL0utKtDc jA8zsTqiZIuopdYiWWGqrPyb mf8aD79obLXlSBblcRdsTVRh k78af5IiUEYlwcUltw7kZK8k BOBmhg36AQC7FaBmk4S4YVMd RjLkVQMuPU6icAhpIUZiME1g DQTmL6gfpS1stui4BwInCAAs SqB3JVJlyjC0Jqq5VXPjVHef e1dtz6LjJBGyGKs1qEssRbEz SHVff2ynelUoPaXfJQGfBJTf MZBewUDfM128b0phg9gkolIv mPX7DCPkSYL3JUjhjdWezlT1 LNvkwADgLaP7OCsmdfLlAMpn gwSarbMtTun7AFUrV721ZBZ5 tTtft4liTIW6ORNfZSLzSiJr Dc5meBEyT423OUFkUAJZMASo tQk4XBQcyuAyuxXqfGEHo268 D864l6biJUIsslRnnNnYuyly e6eaU600NCNidDPprvJeHkBi NXLjhHXaiHG6BBFkOG3hgzil UGfdEZunZGSjicY1GHLbjDRx I1AhBZSiQE8sefrtWFM2OWef WMKbRIJ2JwPoOVYhf5Kfuln7 EcGvqm6omu74CZL1s9ZacXab NBA7LNK1LjSyWv7cgMYkYRSj TE2nOhTtyZPnYWHoho59tLfx KReuerVfsW5gElSxMJFbgBZm XLGxKO3jtPJdRIKjnL0owwdx XHBnYnJkcmhlYWRccGdicmRy Ch4kxLkmVTV9YBvoI4nrjE1r DgX2ZCytU3tixF3fVLk8HXqk jMQ8ZKEdxD4eZE3hvtoov7ch NJifVJmjORVjijW6ylV7UVCe qMNlE2VojE2cZFBkLI6oiprs a1loMNV9SJjhAVLuQCS1OqIz AYWdz4Ojqhj3JrNcr5QeaUQy QMltJ56ze187JJYivrAqA7wg bGFpblxwbGFpblxmMFxmczI0 XHFsXHBsYWluXGYxXGZzMjBc bGFuZzEwMzNcaGljaFxmMVxk AxTnVYWiBEukC4gsUgVoB9Gn EKCeHjTdpNPdCMAplOMfb066 fe5znaRepN28THXcfHQtgGNt KOWrWLKvUGG8qNMnzJguLUDq hFYdyU15lq4itLU2g9BgDX2i p0BhzOLqBDsRTSxxlW1os9k0 cJGxcRTgwZIwqcQ5jH5bPOoT S5tpSOKmjkQivKussN2meZPu eNQutSX9YRV1wsM5KPTwOHUy kjKmd5WmEKMvfUYncnCoRURi VCBsyyPmez1mTQMaiTJ6uOQs N3FMPPyprU9rksERJMHaA6Tv IENlbnRlciBDbGluaWNhbCBM XTXnaiH9q2Y6NTMJgXN3c1rh C8ytIF8fQNlDGgTJURDqQRA9 IPNSB6xbeo7lgiXTt9NtNTFY xRPAKTelRCUPw4j0aHL8gnmq O5xePZVbCNXqLNVAaQqyVI3q kS7mKfi4m1Xcz1AngzOxXUaL AVH6OJJ5bkM5BMCnRYItkoXh k2OtUFKtqUJimrPjWZUqXSXi emTyca8mJCEmmJY8yXOdM0EO OVrejV4synKKAKMrG0GnYLCo bnRlciBDbGluaWNhbCBMYWJv iuG0x6E5FBXITB6bbMFSfNNt z8olkmxfYLVpBYexFBKxaFep TSIsblVrGAPSr0t3qBH7livb B0qqSGLeTWTdSORtsZG6JDF7 cyByZXBvcnRlZCBoZXJlLCBl nAQqrVSaCt8iMENETWrwWKJk YTNqZI2pfTRwVXWeBTKcVIYo CJNiTihvg7BvLOTjli28AHHj EtbtoCpjMTBYGNXqg1UwPI9z OVOcnNrbIMRroM5sc7XfLIJq t42iYUHHMAbfXZVeSOYfJKAx dhN3n9Z8YNyvMKWsO0TyYZDf NQX4zpHtuzKAWJaZDNFjDMX1 TIvjGrgdGTL2taWnVSNsu1Qv EWmqB9btV86feAkjxWt1yRM5 IVK4tD4iBsUPzJQgfUQwoXOi JISfYNKoCMFiCa4lBLWkgK2q G7UuGJV0voHjd4TrWrCHrSP3 CGGaj8CjXGRsz7WoQvUhxnCz TEXrEJCvNSEanC43TQO3lTih tXqnzmMcJT6fSMRwzuEwRRCq UBIeyP5kvDOyeV5= [facility] Work Phone: Pathologic Diagnosis u4rakHNsJSCdbMTaOAX wNVxh snFiJGYaiGGxO5TaplljTLfn LC1vNY8wsWthsEPinMIxFDNb TtYop5lhj458hWPwm3anCIEH bqbzpCi1h5qqHVRYeJ8ce9j4 vY33TFBzaJ4udYKsJGzznhUx USkwhwTyllAsJdz8KCL8yEsz FrdkoST4jARpxCV6KHgyn3Bt iGcmzOjiDAXtBVZ2BVY3XZds q9O6YC5xyQS7EBcvFKT5SXcf d5ZkWY2tFWw0VHarh0JsrICy tKI0MXywd1KdVMLhtUszHZZf vT7xRoWiBDgtzoRhmlNbzaWk DHzgpfXxqaBuRPffyqRbq1Ru ywYazTO6CVyzboKaoGO4cLwm RCTxW8H8L264IKcryaYypxTy TwPwnlf5RAPlTPZgViJetJom HgZdDfjkZRW4v4pkwFO2wHK6 YVeimMH2FGfnXnVtB8vhFZSy tE6fU13sH5psDHDkoSdsAHpx ULUexWQ8ZEW0DJEfx4guNBNv dBIzcJDcDjXpVZkkQpi1r0zb AKRypW55vPPkraS9qNwaIMyp czIwfXtcbGlzdGxldmVsXGxl yaCowdMyVkYkfMG2ZSumLiHb KaMhwDL9PLasBaZziKM1LXtq kLFipRF7LXgkxYG6ABm7EKm6 DIzwLWriGnf4dXqfrFY9NQnc zO7sVCShK33vOnLlGeVqFB53 SRmlm7RwJXMawYntEMNmiI0g YzIzXGxldmVsbmZjbjIzXGxl pnAjthCiMXzfqlXfx2UfykDg sEG7JYpzqoRxdVD6oLshBLLh N1Q0X260PIzcfdVazeJuBdXr bny0GXJoDQBeHkR0j7ggsKR9 lES3WFhsuRV7EKqiYhXrS5yz UFZgqC4zO90iH8xfLHGhrXlf TPxzFTDiyZJ2FIN7OUVfy2si ZXZlbHRleHRcJzAxXCdiNzt9 o1boLPEyxA69yBIrckG6kZya MVxmczIwfXtcbGlzdGxldmVs GMgrqpHqmfDoArJhoHG0MNns HsEpUfAkmLU4DNzpXiAmdYS9 YPbdvXLxzUA9GLpweTK5CBu3 KUt1PVaqCEikAax2jWhzzXB4 ZUkevN0jWAQaA06tXmZjUyHv HJ58ZQbxb2StYJAwkHuxOLIj zK2vTxRnZUzjleDqqhRheeWa LEeuagOosvQmOAofvdRxm8Fk twPytAQ3ZOzdblEvxQO2bNnw UUIzB8B9N183PQjhuzZlejUk BeHjecm1ILGpJJPrQrA7o1mb dBS2eRH0BKcqwHN0MQoxFiZq O0hgJJZvkB7xK53eF2ziPFJd eMnpQVmaFSYbkWY8HRC4YMTa a3lfRGGprVKizHVwIsNlLVve Nas5k9eyCCRgwU41fDYkluX3 fVxmMVxmczIwfXtcbGlzdGxl dmVsXGxldmVsbmZjMjNcbGV2 RDrzRlDkInAayFJ4IMsdSfYv uKC3JScbzTAkiNZ6RPiqnWN3 YYm3JDf6CLiyVKfvWit6bUbl eLE1IWyqhW6yDFEsV11oAyGl HaRxEE30yOuaOusmzOF1f0Wz evKzARF9ZYUcERafPzwvoGX7 x4GvqoQuOWLuaDjxhStgIZAh DGU3FPW4WEfoi9TjpaBfgnrx KPSylC99TOruftP6tIbaYRZz cdmpFrE3WZusWGSacradAUp2 WLsdEKGlvPE3YPNvkRYsZ3Dy MLQjAM3sbgz4LWX7QWldPPMw LaF9NZDdlQAgFTKhwWddAMfs a482BYB7FxFjPCZwnlNanVlw oR1iRbzyizPxDVArYZBCOnLM i6sekdacl4bbrF1bIZufYzcn xNG7ZdxoGHGptPbzAcVkCnvx ODBcbGluMzYwXGxzMVxpbHZs MKvtrQQrftrkNXEgCwMyY0Tk QDG2wCUae0m5ZWXocKQyg7Es TOPzLZChgUQglJSji2CmPC4m L6Qzu1ffDXOmGDcbrOr4SYDv o6XozPMwoDeeGN6zhMndm2Il FNJdcV4tbmWoWRubKJTbIQ1t kC7yoIrkcP5wlCLytOFcbXFx cOImxpRgMt6jSBY9hN3qVRaw gK53mCE3thOhfcCuFQboaPy5 YGNos0FdhnhdIVgfiY0vbLWw jM4xze8fOXWqabjbdAIkZhyh SGktkmPrcHBjKRQnbsQLa90z KG23QlRNaQXtUnviEEdoF0Ux HMYfFSMmovHaq2XaoaPbp2g2 aCBjbGluaWNhbCBpbXByZXNz oK8rND3gFUBkbR8muMNndTMb aGVtaWEuIFNpbWlsYXIgZmlu DHkhW8KeQUY3CRlbVPH5ACEq M2IpsMdaGNIyexZpVWTaYZFa WDrfVQTjf03zpNE3dQ1qYRhc tLhpmI5aJEF5lY4yikGyarFu m4J3WZUpZP4uJMjeMEUfd24x aC1maMG2SzFMwTOtCRIsauEw jeWjrlrzGI1lTGMlCiZmJTir Y90bvlI9DbFsdXLoqH== [facility] Work Phone: Professional Interpretation Performed at: x8dvaVLzIMDqqXCoFvMhOETe APLwr9jgQXEpjQPiLqPxVvDo ElAdGmdwnVDwSZNiYlYhy3pv h723pTGou1jcOQYtNzX3yMIn LWIydMDhX876ASHyVMbae9rg q4OpUXEnqZSsj6C3IIYFfbgt hKe4hJtgX22wh6W9EmhaR0bx AXIdREJiR2VnRB0oCTSaJbi1 IXJ5GJA6IRHuKVYdG1NmRZ6r CGMguFLiBAb3q8hlsOegSOSl IZA5v9bnEDhizaIiIR7mri6z eNh4d6rierPbRUXzRMHtxOLT AVAuG3WumGuwSd8kfPb8hCbd AfnmBXJ1Nhn9YZ2zgj74zna0 aWjoTFZhcihmDwP5HYvdPTTi dcmwJIp2AZwdUUDwaLD8IUWq zKTxI8QdIZGgYJ5lwjt9QIU7 AOagFBBnNfA1JXPomUWeCOAd tPpoADhvg847PLK5JnTjST3c V9Giz4C5iX8jkWVjYPXmlXIv EqIkLRDwum2ygEWbSJeob1Sz GVE0fdE9xXHztVThOFUqPH10 Hccrt7OkBgggION3QANufiKb k5Cmv1ioYtJvucNiF7mnL5Oz VMXkAGVuUZYeSwHcamEvo0Ep k0ZsfMIynMb2z3jlIMYiHXXx hCtcg4jiWLW2KXMvO6I3pKUc p0blQRpkIWHcrKF2ruT4MPCi pXGpY6HbuD2dGWLhYQ4lbvo1 g1ncUYH1EEzpADOcVmD2csO5 GOOozKUrMZZvzYbdMTxcd079 SVT5XtHwKTRmz6GwI2DmcWns R15axGuiU32cVXVawLnxsN6n mHsliF0oZhLoIqTlHBxjORRm XHBsYWluXGYxXGZzMjJcbGFu ZzEwMzNcaGljaFxmMVxkYmNo EOFbMAyeZ7lqLgRpDqApFxSY E1WeB9UKKtMZHF0NJFaIDYxt O9GWQVZXYDCRFN4RM0XHVGeO Jf1IZBRGWcgbeEPzSAIlZXLT CIN5HERojNjgPYUpMWMutsGB x8q2yBV9qrzuL4lcfvO7FaOr MFxwYXJ9 [facility] Work Phone: [facility] Work Phone: No Panel InformationOrdered By: Marybeth Bach on 02-18-2025 Interpretation and review of laboratory results Abnormal [facility] PHOSPHATE, INORGANICon 02-18 Phosphorous 2.7 mg/dL Normal 2.2-4.6 [facility] Comment on above: Performed By: #### X M #### [facility] [facility] ([facility] [address] [place] [address] PLATELET COUNTon 02-18-2025 Platelet mean volume (Bld) [Entitic vol] 10.3 fL Normal 8.7-12.3 [facility] Comment on above: Performed By: #### X M #### [facility] (DEFAULT) [address] [place] [address] Platelets (Bld) [#/Vol] 186 10*3/uL Normal 146-337 [facility] Comment on above: Performed By: #### X M #### [facility] (DEFAULT) [address] [place] [address]29 PROTIME-INRon 02-18-2025 INR Coag (PPP) [Relative time] 1.4 {INR} High 0.9-1.1 [facility] Comment on above: Performed By: #### P TT, PTI ####[facility] (DEFAULT)[address] [place] [address] PT Coag (PPP) [Time] 16.7 s High 11.9-14.2 [facility] Comment on above: Performed By: #### P TT, PTI ####[facility] (DEFAULT)[address] [place] [address]288 PTTon 02-18-2025 aPTT Coag (Bld) [Time] 91.2 s High 24.0-34.3 [facility] Comment on above: Order Comment: After [...] instructions. Performed By: #### X M #### [facility] (DEFAULT) [address] [place] [address] aPTT Coag (Bld) [Time] 80.4 s High 24.0-34.3 [facility] Comment on above: Order Comment: After [...] instructions. Performed By: #### H EMOGC #### [facility] (DEFAULT) [address] [address] aPTT Coag (Bld) [Time] 64.5 s High 24.0-34.3 [facility] Comment on above: Order Comment: After [...] instructions. Performed By: #### P TT, PTI ####[facility] (DEFAULT)[address] [address] aPTT Coag (Bld) [Time] 49.3 s High 24.0-34.3 [facility] Comment on above: Order Comment: After [...] instructions. Performed By: #### X M #### [facility] (DEFAULT) [address] [address] TYPE AND SCREENon 02-18-2025 ABO/RH(D) TYPE Positive Normal [facility] Comment on above: Performed By: #### X M #### [facility] (DEFAULT) [address] [address] Specimen Expiration 02/21/2025 03:43 Normal [facility] Comment on above: Performed By: #### X M #### [facility] (DEFAULT) [address] [address] CBC,PLATELETSon 02-17-2025 Hematocrit (Bld) [Volume fraction] 24.0 % Low 39.6-48.8 [facility] Comment on above: Performed By: #### X M #### [facility] (DEFAULT) [address] [address] Hemoglobin (Bld) [Mass/Vol] 7.6 g/dL Low 13.4-16.8 [facility] Comment on above: Performed By: #### X M #### [facility] (DEFAULT) [address] [address] MCV (RBC) [Entitic vol] 108.6 fL High 79.0-94.5 [facility] Comment on above: Performed By: #### X M #### [facility] (DEFAULT) [address] [address] Mean Cell Hgb 34.4 pg High 26.1-33.3 [facility] Comment on above: Performed By: #### X M #### [facility] (DEFAULT) [address] [address] Mean Cell Hgb Conc 31.7 g/dL Low 31.9-36.5 [facility] Comment on above: Performed By: #### X M #### [facility] (DEFAULT) [address] [address] Platelet mean volume (Bld) [Entitic vol] 9.7 fL Normal 8.7-12.3 [facility] Comment on above: Performed By: #### X M #### [facility] (DEFAULT) [address] [address] Platelets (Bld) [#/Vol] 170 10*3/uL Normal 146-337 [facility] Comment on above: Performed By: #### X M #### [facility] (DEFAULT) [address] [address] RBC (Bld) [#/Vol] 2.21 10*6/uL Low 4.38-5.83 [facility] Comment on above: Performed By: #### X M #### [facility] (DEFAULT) [address] [address] RBC Distribution 19.4 % High 10.9-14.3 [facility] Comment on above: Performed By: #### X M #### [facility] (DEFAULT) [address] [place] [address] WBC (Bld) [#/Vol] 8.48 10*3/uL Normal 3.73-10.10 [facility] Comment on above: Performed By: #### X M #### [facility] (DEFAULT) [address] [place] [address] CHEM 7 (LYTES,BUN,CREA,GLUC) on 02-17-2025 Anion gap [Moles/Vol] 16 mmol/L Normal 7-17 [facility] Comment on above: Performed By: #### X M #### [facility] (DEFAULT) [address] [place] [address] Chloride [Moles/Vol] 98 mmol/L Normal 98-108 [facility] Comment on above: Performed By: #### X M #### [facility] (DEFAULT) [address] [place] [address] CO2 [Moles/Vol] 27 mmol/L Normal 21-31 [facility] Comment on above: Performed By: #### X M #### [facility] (DEFAULT) [address] [place] [address] Creatinine [Mass/Vol] 5.28 mg/dL High 0.70-1.30 [facility] Comment on above: Performed By: #### X M #### [facility] (DEFAULT) [address] [place] [address] GFR/1.73 sq M.predicted among non-blacks MDRD (S/P/Bld) [Vol rate/Area] 11 mL/min/{1.73_m2} Low >=60 [facility] Comment on above: Result Comment: Repo rted eGFR is based on the CKD-EPI 2020 equation using creatinine, age, and sex. Performed By: #### X M #### [facility] (DEFAULT) [address] [place] [address]53 Glucose [Mass/Vol] 99 mg/dL Normal Nonfastin -179 mg/dL; Fastin-99 [facility] Comment on above: Performed By: #### X M #### [facility] (DEFAULT) [address] [place] [address] Osmolality [Osmolality] 289 mosm/kg Normal 278-305 [facility] Comment on above: Performed By: #### X M #### [facility] (DEFAULT) [address] [place] [address] Potassium [Moles/Vol] 4.1 mmol/L Normal 3.5-5.0 [facility] Comment on above: Performed By: #### X M #### [facility] (DEFAULT) [address] [place] [address] Sodium [Moles/Vol] 137 mmol/L Normal 135-145 [facility] Comment on above: Performed By: #### X M #### [facility] (DEFAULT) [address] [place] [address] Urea nitrogen [Mass/Vol] 17 mg/dL Normal 7-25 [facility] Comment on above: Performed By: #### X M #### [facility] (DEFAULT) [address] [place] [address] 11355 Urea nitrogen/Creatinine [Mass ratio] 3 mg/mg Normal [facility] Comment on above: Performed By: #### X M #### [facility] (DEFAULT) [address] [place] [address] Cardiac echo study Procedure on 02-17-2025 Ao ASC index 2.02 cm/m2 [facility] Ao peak christie 1.92 m/s [facility] Ao SOV index 1.94 cm/m2 [facility] Ao STJ index 1.98 cm/m2 [facility] Ao VTI 38.[address] [facility] Ascending aorta 3.[address] [facility] AV LVOT peak gradient [address] [facility] AV mean gradient 9 mmHg [facility] AV peak gradient 15 mmHG [facility] AV valve area 1.24 cm2 [facility] AV Velocity Ratio 0.27 [facility] HAJA (continuity Vmax) 1 cm2 [facility] HAJA (continuity VTI) 1.24 cm2 [facility] HAJA index (continuity Vmax) 0.52 m/s [facility] HAJA index (continuity VTI) 0.65 cm2/m2 [facility] Avg e' pk christie 0.06 m/s [facility] Avg E/e' ratio 10.38 [facility] Body surface area Derived from formula 1.91 m2 [facility] BP EF 69 % [facility] DI (Vmax) 0.27 [facility] DI (VTI) 0.33 m/2 [facility] E wave decelartion time 298.06 msec O [facility] e' lateral pk christie 0.0664 m/s [facility] e' lateral pk christie 0.07 m/s [facility] e' septal pk christie 0.0482 m/s [facility] e' septal pk christie 0.05 [facility] 1.66 [facility] E/e' lateral ratio 8.73 [facility] E/e' septal ratio 12.03 [facility] Echo EF Estimated 55 % [facility] EF SP 2CH 73 [facility] EF SP 4CH 67 [facility] EST RAP 8 mmHg [facility] EST RVSP 55 mmHg [facility] FS 31 % [facility] IVC ostium 2.29 cm [facility] IVS 1.2 cm [facility] LA area 4CH 32.01 cm2 [facility] LA ESV BP (MOD) 108 mL [facility] LA ESV BP (MOD) index 57 mL/m2 [facility] LA ESV SP 2CH (MOD) 76 mL [facility] LA ESV SP 4CH (MOD) 127 mL [facility] LV EDV BP 103 mL [facility] LV EDV SP 2CH 134 mL [facility] LV EDV SP 4CH 78 mL [facility] LV ESV BP 32 mL [facility] LV ESV SP 2CH 36 mL [facility] LV ESV SP 4CH 26 mL [facility] LV mass 234.36 g [facility] LV Mass Index 122.7 g/m2 [facility] LV RWT 0.29 [facility] LV stroke volume BP (ml) 71 mL [facility] LV stroke volume index BP 37.17 mL/m2 [facility] LVIDD 5.73 cm [facility] LVIDS 3.98 cm [facility] LVOT area 3.76 cm2 [facility] LVOT diameter 2.19 cm [facility] LVOT peak christie 0.51 m/s [facility] LVOT peak VTI 12.66 cm [facility] LVOT stroke volume 48 cm3 [facility] LVOT stroke volume index 24.96 ml/m2 [facility] Mr max christie 5 m/s [facility] MR PISA EROA 0.15 cm2 [facility] MV mean gradient 4 mmHg [facility] MV peak gradient 12 mmHg [facility] MV pk A christie 0.35 m/s [facility] MV pk E christie 0.58 m/s [facility] MV valve area by continuity eq 0.99 cm2 [facility] MV VTI 48.32 cm [facility] MVA (continuity VTI) 0.99 cm [facility] AV VTI RATIO PRE STRESS 0.33 [facility] ECHO LV BIPLANE SYSTOLIC VOLUME INDEX 16.75 mL/m2 [facility] ECHO LV BP DIASTOLIC VOLUME INDEX 53.93 mL/m2 [facility] PW 0.84 cm [facility] RA area 4CH (MOD) 17.18 cm2 [facility] RA vol index 4CH (MOD) 26.18 mL/m2 [facility] Radius 0.6 cm [facility] Right atrium volume 4 chamber method of disks 50 mL [facility] RV Area diastolic 18 cm2 [facility] RV Area systolic 12.5 cm2 [facility] RV basal diam 3.54 [facility] Fractional area change 30.6 % [facility] RV long diam 8.08 cm [facility] RV mid diam 2.65 cm [facility] RV S' 6.95 cm/s [facility] RVOT peak gradient 1 mmHg [facility] RVOT peak christie 0.44 m/s [facility] RVOT peak VTI 11.1 cm [facility] RVOT PLAX DIAM 2.5 cm [facility] Sinus 3.71 cm [facility] STJ 3.[address] [facility] Stroke Volume 48 cm/mL [facility] Stroke volume index 25 [facility] TAPSE 1.81 cm [facility] TR pk grad 47 mmHg [facility] TR pk christie 3.41 m/s [facility] Vn Nyquist 0.33 m/s [facility] UMOUT [facility] Rad[facility] Study observation (narrative) [facility] ECHOCARDIOGRAMon 02-17-2025 Echocardiography Mildly dilated left ventricle [...] from the original result were not included. [facility] Facility [facility] Patient Information Patient Name Christian Amador Legal [...] Role Read Date Rosetta Sainz MD Echo [place], Test [employer] 02/17/2025 Left Heart Measurements LV - Systole [...] christie (more content not included)... Normal [facility] Laboratory - Chemistry and C hemistry - challengeOrdered By: Adrian Coronado on 02-17-2025 Anion gap [Moles/Vol] 16 mmol/L 7 - 17 mmol/L [facility] Chloride [Moles/Vol] 98 mmol/L 98 - 10 8 mmol/L [facility] CO2 [Moles/Vol] 27 mmol/L 21 - 31 mmol/L [facility] Creatinine [Mass/Vol] 5.28 mg/dL High 0.70 - 1.30 mg/dL [facility] Glucose [Mass/Vol] 99 mg/dL 70 - 179 mg/dL [facility] Osmolality Calc [Osmolality] 289 [facility] Potassium [Moles/Vol] 4.1 mmol/L 3.5 - 5.0 mmol/L [facility] Sodium [Moles/Vol] 137 mmol/L 135 - 145 mmol/L [facility] Urea nitrogen [Mass/Vol] 17 mg/dL 7 - 25 mg/dL [facility] Urea nitrogen/Creatinine [Mass ratio] 3 mg/mg [facility] - Chemistry and C hemistry - challengeon 02-17-2025 Magnesium [Mass/Vol] 1.7 mg/dL 1.6 - 2 .6 mg/dL [facility] Phosphate [Mass/Vol] 2.9 mg/dL 2.2 - 4 .6 mg/dL [facility] - CoagulationOrde red By: Ekta Cano on 02-17-2025 aPTT Coag (PPP) [Time] Critically high [facility] Coagulationon 0 02-17-2025 aPTT Coag (PPP) [Time] 109.2 s High OS [facility] aPTT Coag (PPP) [Time] 93.6 s High OS [facility] - Hematology and Cell countson 02-17-2025 Erythrocyte distribution width (RBC) [Ratio] 19.4 % High 10.9 - 14.3 % [facility] Hematocrit (Bld) [Volume fraction] 24 % Low 39.6 - 48.8 % [facility] Hemoglobin (Bld) [Mass/Vol] 7.6 g/dL Low 13.4 - 16.8 g/dL [facility] MCH (RBC) [Entitic mass] 34.4 pg High 26.1 - 33.[address] [facility] MCHC (RBC) [Mass/Vol] 31.7 g/dL Low 31.9 - 36.5 g/dL [facility] MCV (RBC) [Entitic vol] 108.6 fL High 79.0 - 94.[address] [facility] Platelet mean volume (Bld) [Entitic vol] 9.7 fL 8.7 - 12.[address] [facility] Platelets (Bld) [#/Vol] 170 10*3/uL 146 - 337 K/uL [facility] RBC (Bld) [#/Vol] 2.21 10*6/uL Low [facility] WBC (Bld) [#/Vol] 8.48 10*3/uL 3.73 - 10. 10 K/uL [facility] MAGNESIUMon 02-17-2025 Magnesium [Mass/Vol] 1.7 mg/dL Normal 1.6-2.6 [facility] Comment on above: Performed By: #### X M #### [facility] (DEFAULT) [address] [place] [address] No Panel InformationOrdered By: Ekta Cano on 02-17-2025 Interpretation and review of laboratory results Abnormal [facility] No Panel Informationon 02-17 Interpretation and review of laboratory results Abnormal [facility] Interpretation and review of laboratory results Normal [facility] Interpretation and review of laboratory results Abnormal [facility] Interpretation and review of laboratory results Abnormal [facility] No Panel InformationOrdered By: Adrian Coronado on 02-17-2025 eGFR, CKD-EPI, Male 11 Low - PINF [facility] Interpretation and review of laboratory results Abnormal [facility] PHOSPHATE, INORGANICon 02-17 Phosphorous 2.9 mg/dL Normal 2.2-4.6 [facility] Comment on above: Performed By: #### X M #### [facility] (DEFAULT) [address] [address] PTTon 02-17-2025 aPTT Coag (Bld) [Time] s Critically high 24.0-34. 3 [facility] Comment on above: Order Comment: After [...] verified Performed By: #### P TT #### [facility] (DEFAULT) [address] [address] aPTT Coag (Bld) [Time] 109.2 s High 24.0-34.3 [facility] Comment on above: Order Comment: After [...] instructions. Performed By: #### X M #### [facility] (DEFAULT) [address] [place] [address] aPTT Coag (Bld) [Time] 93.6 s High 24.0-34.3 [facility] Comment on above: Order Comment: After [...] instructions. Performed By: #### X M #### [facility] (DEFAULT) [address] [address] Bacteria identified Respirat ory culture Nom (Unsp spec)Ordered By: Momo Fofana on 02-16-2025 Bacteria identified Cx Nom (Unsp spec) Growth [facility] Bacteria identified Cx Nom (Unsp spec) Light Growth Common oropharyngeal microbes [facility] Microscopic observation Other stain Nom (Unsp spec) Neutrophils, Light [facility] Microscopic observation Other stain Nom (Unsp spec) Contaminating bacteria and epithelials present [facility] Microscopic observation Other stain Nom (Unsp spec) Specimen is of optimum quality [facility] CBC,PLATELETSon 02-16-2025 Hematocrit (Bld) [Volume fraction] 25.8 % Low 39.6-48.8 [facility] Comment on above: Performed By: #### X M #### [facility] (DEFAULT) [address] [address] Hemoglobin (Bld) [Mass/Vol] 7.8 g/dL Low 13.4-16.8 [facility] Comment on above: Performed By: #### X M #### [facility] (DEFAULT) [address] [address] MCV (RBC) [Entitic vol] 110.3 fL High 79.0-94.5 [facility] Comment on above: Performed By: #### X M #### [facility] (DEFAULT) [address] [place] [address] Mean Cell Hgb 33.3 pg Normal 26.1-33.3 [facility] Comment on above: Performed By: #### X M #### [facility] (DEFAULT) [address] [place] [address] Mean Cell Hgb Conc 30.2 g/dL Low 31.9-36.5 [facility] Comment on above: Performed By: #### X M #### [facility] (DEFAULT) [address] [place] [address]32 Platelet mean volume (Bld) [Entitic vol] 10.0 fL Normal 8.7-12.3 [facility] Comment on above: Performed By: #### X M #### [facility] (DEFAULT) [address] [place] [address]187 Platelets (Bld) [#/Vol] 181 10*3/uL Normal 146-337 [facility] Comment on above: Performed By: #### X M #### [facility] (DEFAULT) [address] [place] [address] RBC (Bld) [#/Vol] 2.34 10*6/uL Low 4.38-5.83 [facility] Comment on above: Performed By: #### X M #### [facility] (DEFAULT) [address] [place] [address] RBC Distribution 19.2 % High 10.9-14.3 [facility] Comment on above: Performed By: #### X M #### [facility] (DEFAULT) [address] [place] [address] WBC (Bld) [#/Vol] 16.30 10*3/uL High 3.73-10.10 [facility] Comment on above: Performed By: #### X M #### [facility] (DEFAULT) [address] [place] [address] CHEM 7 (LYTES,BUN,CREA,GLUC) on 02-16-2025 Anion gap [Moles/Vol] 23 mmol/L High 7-17 [facility] Comment on above: Performed By: #### X M #### [facility] (DEFAULT) [address] [place] [address]25 Chloride [Moles/Vol] 97 mmol/L Low 98-108 [facility] Comment on above: Performed By: #### X M #### [facility] (DEFAULT) [address] [place] [address] CO2 [Moles/Vol] 22 mmol/L Normal 21-31 [facility] Comment on above: Performed By: #### X M #### [facility] (DEFAULT) [address] [address] Creatinine [Mass/Vol] 8.21 mg/dL High 0.70-1.30 [facility] Comment on above: Performed By: #### X M #### [facility] (DEFAULT) [address] [address] GFR/1.73 sq M.predicted among non-blacks MDRD (S/P/Bld) [Vol rate/Area] 6 mL/min/{1.73_m2} Low >=60 [facility] Comment on above: Result Comment: Repo rted eGFR is based on the CKD-EPI 2020 equation using creatinine, age, and sex. Performed By: #### X M #### [facility] (DEFAULT) [address] [place] [address] Glucose [Mass/Vol] 84 mg/dL Normal Nonfastin -179 mg/dL; Fastin-99 [facility] Comment on above: Performed By: #### X M #### [facility] (DEFAULT) [address] [address] Osmolality [Osmolality] 293 mosm/kg Normal 278-305 [facility] Comment on above: Performed By: #### X M #### [facility] (DEFAULT) [address] [place] [address] Potassium [Moles/Vol] 4.7 mmol/L Normal 3.5-5.0 [facility] Comment on above: Performed By: #### X M #### [facility] (DEFAULT) [address] [place] [address] Sodium [Moles/Vol] 137 mmol/L Normal 135-145 [facility] Comment on above: Performed By: #### X M #### [facility] (DEFAULT) [address] [place] [address] Urea nitrogen [Mass/Vol] 29 mg/dL High 7-25 [facility] Comment on above: Performed By: #### X M #### [facility] (DEFAULT) [address] [place] [address] Urea nitrogen/Creatinine [Mass ratio] 4 mg/mg Normal [facility] Comment on above: Performed By: #### X M #### [facility] (DEFAULT) [address] [place] [address] Laboratory - Chemistry and C hemistry - challengeOrdered By: Shikha Mayo on 02-16-2025 Anion gap [Moles/Vol] 23 mmol/L High 7 - 17 mmol/L [facility] Chloride [Moles/Vol] 97 mmol/L Low 98 - 10 8 mmol/L [facility] CO2 [Moles/Vol] 22 mmol/L 21 - 31 mmol/L [facility] Creatinine [Mass/Vol] 8.21 mg/dL High 0.70 - 1.30 mg/dL [facility] Glucose [Mass/Vol] 84 mg/dL 70 - 179 mg/dL [facility] Osmolality Calc [Osmolality] 293 [facility] Potassium [Moles/Vol] 4.7 mmol/L 3.5 - 5.0 mmol/L [facility] Sodium [Moles/Vol] 137 mmol/L 135 - 145 mmol/L [facility] Urea nitrogen [Mass/Vol] 29 mg/dL High 7 - 25 mg/dL [facility] Urea nitrogen/Creatinine [Mass ratio] 4 mg/mg [facility] Laboratory - CoagulationOrde red By: Ernestine Sharpe on 02-16-2025 aPTT Coag (PPP) [Time] 86.8 s High OS [facility] Laboratory - Coagulationon 0 02-16-2025 aPTT Coag (PPP) [Time] 46 s High OS [facility] INR Coag (Bld) [Relative time] 1.5 {INR} High 0.9 - 1.1 [facility] PT Coag (PPP) [Time] 17.[address] [facility] Laboratory - Hematology and Cell countson 02-16-2025 Erythrocyte distribution width (RBC) [Ratio] 19.2 % High 10.9 - 14.3 % [facility] Hematocrit (Bld) [Volume fraction] 25.8 % Low 39.6 - 48.8 % [facility] Hemoglobin (Bld) [Mass/Vol] 7.8 g/dL Low 13.4 - 16.8 g/dL [facility] MCH (RBC) [Entitic mass] 33.3 pg 26.1 - 33.[address] [facility] MCHC (RBC) [Mass/Vol] 30.2 g/dL Low 31.9 - 36.5 g/dL [facility] MCV (RBC) [Entitic vol] 110.3 fL High 79.0 - 94.[address] [facility] Platelet mean volume (Bld) [Entitic vol] 10 fL 8.7 - 12.[address] [facility] Platelets (Bld) [#/Vol] 181 10*3/uL 146 - 337 K/uL [facility] RBC (Bld) [#/Vol] 2.34 10*6/uL Low [facility] WBC (Bld) [#/Vol] 16.3 10*3/uL High 3.73 - 10. 10 K/uL [facility] No Panel InformationOrdered By: Ernestine Sharpe on 02-16-2025 Interpretation and review of laboratory results Abnormal [facility] No Panel Informationon 02-16 [facility] Body surface area Derived from formula 1.[address] [facility] LAB, U [facility] Radiology Study observation (narrative) [facility] Interpretation and review of laboratory results Abnormal [facility] Interpretation and review of laboratory results Abnormal [facility] No Panel InformationOrdered By: Shikha Mayo on 02-16-2025 eGFR, CKD-EPI, Male 6 Low - PINF [facility] Interpretation and review of laboratory results Abnormal [facility] PT,INR,PTTon 02-16-2025 aPTT Coag (Bld) [Time] 46.0 s High 24.0-34.3 [facility] Comment on above: Performed By: #### X M #### [facility] (DEFAULT) [address] [place] [address] INR Coag (PPP) [Relative time] 1.5 {INR} High 0.9-1.1 [facility] Comment on above: Performed By: #### X M #### [facility] (DEFAULT) [address] [place] [address] PT Coag (PPP) [Time] 17.9 s High 11.9-14.2 [facility] Comment on above: Performed By: #### X M #### [facility] (DEFAULT) [address] [place] [address] PTTon 02-16-2025 aPTT Coag (Bld) [Time] 86.8 s High 24.0-34.3 [facility] Comment on above: Order Comment: After [...] Performed By: #### X M #### [facility] (DEFAULT) [address] [place] [address] SURG PATH REQUESTon 02-17-20 Case Report [facility] Comment on above: Result Comment: Surg ical Pathology Report Case: [id number] Authorizing Provider: Gen Oh MD Collected: 02/16/2025 09:28 AM Ordering Location: [facility] Received: 02/16/2025 11:19 AM Pathologist: ROSE Lawson Specimen: COLON TISSUE OR BIOPSY, sigmoid colon bxs; r/o ischemia, r/o malignancy Performed By: #### S URGP #### [facility] (DEFAULT) [address] [place] [address] Clinical History R/o ischemia. R/o malignancy. Medical [...] reflux disease. Seizures. Vascular disease. Normal [facility] Comment on above: Performed By: #### S URGP #### [facility] (DEFAULT) [address] [place] [address] Gross Description Normal [facility] Comment on above: Result Comment: The specimen is received in one properly labeled container with the patient's name and accession number. A. The specimen is designated "sigmoid colon bxs; r/o ischemia, r/o malignancy" and consists of one soft gayle portion of tissue which is 0.4 cm in greatest dimension. TE 1 Lab Use Only: JobID [id number] Grosser for this case was: Chris Wilson Performed By: #### S URGP #### [facility] (DEFAULT) [address] [address] Microscopic Description Normal [facility] Comment on above: Result Comment: A mi croscopic examination was performed. All controls show appropriate reactivity. All immunohistochemistry (IHC), in situ hybridization (DONNA), and histochemical tests were developed by and are performed at the [facility], Histology and IHC Lab, [address] [place] [address], [place] [address]. All Immunofluorescent (IF) tests were developed by and are performed at the [facility], Renal Division, [address] [place] [address]. All tests reported here, except for PD-L1, have not been cleared by or approved by the [place] Food and Drug Administration (FDA). The laboratory is regulated under CLIA as qualified to perform high-complexity testing. The tests are used for clinical purposes. They should not be regarded as investigational or for research. Performed By: #### S URGP #### [facility] (DEFAULT) [address] [place] [address] Pathologic Diagnosis [facility] Comment on above: Result Comment: Marifer reese, sigmoid, biopsy: Extensive mucosal and submucosal necrosis, negative for malignancy, see comment. Immunohistochemical stains for Cytomegalovirus is negative for viral inclusions. Comment: The findings are consistent with clinical impression of colonic ischemia. Similar findings (at least focally) can be seen in association with infections and severe medication injury. There is no evidence of malignancy. at 1116 EDT Performed By: #### S URGP #### [facility] (DEFAULT) [address] [address] Professional Interpretation Performed at: [facility] Comment on above: Result Comment: [facility] For Immediate Release to Patient's [facility]? Yes [address] [place] [address] Performed By: #### S URGP #### [facility] (DEFAULT) [address] [place] [id number] CBC,PLATELETSon 02-15-2025 Hematocrit (Bld) [Volume fraction] 25.0 % Low 39.6-48.8 [facility] Comment on above: Performed By: #### X M #### [facility] (DEFAULT) [address] [place] [address] Hemoglobin (Bld) [Mass/Vol] 7.6 g/dL Low 13.4-16.8 [facility] Comment on above: Performed By: #### X M #### [facility] (DEFAULT) [address] [place] [address] 13071 MCV (RBC) [Entitic vol] 111.1 fL High 79.0-94.5 [facility] Comment on above: Performed By: #### X M #### [facility] (DEFAULT) [address] [place] [address]2026 Mean Cell Hgb 33.8 pg High 26.1-33.3 [facility] Comment on above: Performed By: #### X M #### [facility] (DEFAULT) [address] [place] [address] 58088 Mean Cell Hgb Conc 30.4 g/dL Low 31.9-36.5 [facility] Comment on above: Performed By: #### X M #### [facility] (DEFAULT) [address] [place] [address] 88338 Platelet mean volume (Bld) [Entitic vol] 9.6 fL Normal 8.7-12.3 [facility] Comment on above: Performed By: #### X M #### [facility] (DEFAULT) [address] [place] [address] Platelets (Bld) [#/Vol] 158 10*3/uL Normal 146-337 [facility] Comment on above: Performed By: #### X M #### [facility] (DEFAULT) [address] [place] [address] 46076 RBC (Bld) [#/Vol] 2.25 10*6/uL Low 4.38-5.83 [facility] Comment on above: Performed By: #### X M #### [facility] (DEFAULT) [address] [place] [address] 51028 RBC Distribution 19.3 % High 10.9-14.3 [facility] Comment on above: Performed By: #### X M #### [facility] (DEFAULT) [address] [place] [address] 97400 WBC (Bld) [#/Vol] 8.41 10*3/uL Normal 3.73-10.10 [facility] Comment on above: Performed By: #### X M #### [facility] (DEFAULT) [address] [place] [address] 13108 CHEM 7 (LYTES,BUN,CREA,GLUC) on 02-15-2025 Anion gap [Moles/Vol] 16 mmol/L Normal 7-17 [facility] Comment on above: Performed By: #### X M #### [facility] (DEFAULT) [address] [place] [address] 00814 Chloride [Moles/Vol] 99 mmol/L Normal 98-108 [facility] Comment on above: Performed By: #### X M #### [facility] (DEFAULT) [address] [place] [address] 31651 CO2 [Moles/Vol] 26 mmol/L Normal 21-31 [facility] Comment on above: Performed By: #### X M #### [facility] (DEFAULT) [address] [place] [address] 29286 Creatinine [Mass/Vol] 7.08 mg/dL High 0.70-1.30 [facility] Comment on above: Performed By: #### X M #### [facility] (DEFAULT) [address] [place] [address] 94785 GFR/1.73 sq M.predicted among non-blacks MDRD (S/P/Bld) [Vol rate/Area] 7 mL/min/{1.73_m2} Low >=60 [facility] Comment on above: Result Comment: Repo rted eGFR is based on the CKD-EPI 2020 equation using creatinine, age, and sex. Performed By: #### X M #### [facility] (DEFAULT) [address] [place] [address] 38432 Glucose [Mass/Vol] 93 mg/dL Normal Nonfastin -179 mg/dL; Fastin-99 [facility] Comment on above: Performed By: #### X M #### [facility] (DEFAULT) [address] [place] [address] 43484 Osmolality [Osmolality] 292 mosm/kg Normal 278-305 [facility] Comment on above: Performed By: #### X M #### [facility] (DEFAULT) [address] [place] [address] 05640 Potassium [Moles/Vol] 3.4 mmol/L Low 3.5-5.0 [facility] Comment on above: Performed By: #### X M #### [facility] (DEFAULT) [address] [place] [address] 05497 Sodium [Moles/Vol] 138 mmol/L Normal 135-145 [facility] Comment on above: Performed By: #### X M #### [facility] (DEFAULT) [address] [place] [address] 65044 Urea nitrogen [Mass/Vol] 24 mg/dL Normal 7-25 [facility] Comment on above: Performed By: #### X M #### [facility] (DEFAULT) [address] [place] [address] 25335 Urea nitrogen/Creatinine [Mass ratio] 3 mg/mg Normal [facility] Comment on above: Performed By: #### X M #### [facility] (DEFAULT) [address] [place] [address] Laboratory - Chemistry and C hemistry - challengeOrdered By: Soto Layton on 02-15-2025 Anion gap [Moles/Vol] 16 mmol/L 7 - 17 [facility] Chloride [Moles/Vol] 99 mmol/L 98 - 10 8 mmol/L [facility] CO2 [Moles/Vol] 26 mmol/L 21 - 31 mmol/L [facility] Creatinine [Mass/Vol] 7.08 mg/dL High 0.70 - 1.30 mg/dL [facility] Glucose [Mass/Vol] 93 mg/dL 70 - 179 mg/dL [facility] Osmolality Calc [Osmolality] 292 [facility] Potassium [Moles/Vol] 3.4 mmol/L Low 3.5 - 5.0 mmol/L [facility] Sodium [Moles/Vol] 138 mmol/L 135 - 145 mmol/L [facility] Urea nitrogen [Mass/Vol] 24 mg/dL 7 - 25 mg/dL [facility] Urea nitrogen/Creatinine [Mass ratio] 3 mg/mg [facility] Laboratory - Coagulationon 0 02-15-2025 aPTT Coag (PPP) [Time] 77.2 s High [facility] aPTT Coag (PPP) [Time] 93.3 s High [facility] INR Coag (Bld) [Relative time] 1.6 {INR} High 0.9 - 1.1 [facility] PT Coag (PPP) [Time] 19.[address] [facility] Laboratory - Hematology and Cell countson 02-15-2025 Platelet mean volume (Bld) [Entitic vol] 10 fL 8.7 - 12.[address] [facility] Platelets (Bld) [#/Vol] 181 10*3/uL 146 - 337 K/uL [facility] Erythrocyte distribution width (RBC) [Ratio] 19.3 % High 10.9 - 14.3 % [facility] Hematocrit (Bld) [Volume fraction] 25 % Low 39.6 - 48.8 % [facility] Hemoglobin (Bld) [Mass/Vol] 7.6 g/dL Low 13.4 - 16.8 g/dL [facility] MCH (RBC) [Entitic mass] 33.8 pg High 26.1 - 33.[address] [facility] MCHC (RBC) [Mass/Vol] 30.4 g/dL Low 31.9 - 36.5 g/dL [facility] MCV (RBC) [Entitic vol] 111.1 fL High 79.0 - 94.[address] [facility] Platelet mean volume (Bld) [Entitic vol] 9.6 fL 8.7 - 12.[address] [facility] Platelets (Bld) [#/Vol] 158 10*3/uL 146 - 337 K/uL [facility] RBC (Bld) [#/Vol] 2.25 10*6/uL Low [facility] WBC (Bld) [#/Vol] 8.41 10*3/uL 3.73 - 10. 10 K/uL [facility] No Panel Informationon 02-15 Interpretation and review of laboratory results Abnormal [facility] Interpretation and review of laboratory results Normal [facility] ABO/RH(D) TYPE Positive [facility] Specimen Expiration 02/18/2025 06:12 [facility] Interpretation and review of laboratory results Abnormal [facility] Interpretation and review of laboratory results Abnormal [facility] Interpretation and review of laboratory results Abnormal [facility] No Panel InformationOrdered By: Soto Layton on 02-15-2025 eGFR, CKD-EPI, Male 7 Low - PINF [facility] Interpretation and review of laboratory results Abnormal [facility] PLATELET COUNTon 02-15-2025 Platelet mean volume (Bld) [Entitic vol] 10.0 fL Normal 8.7-12.3 [facility] Comment on above: Performed By: #### S URGP #### [facility] (DEFAULT) [address] [place] [address]881 Platelets (Bld) [#/Vol] 181 10*3/uL Normal 146-337 [facility] Comment on above: Performed By: #### S URGP #### [facility] (DEFAULT) [address] [place] [address] PROTIME-INRon 02-15-2025 INR Coag (PPP) [Relative time] 1.6 {INR} High 0.9-1.1 [facility] Comment on above: Order Comment: Ongoi ng: Daily until INR is therapeutic for 2 consecutive days, then every 2 days for 14 days or until discharged. Performed By: #### P TI, PTT ####[facility] (DEFAULT)[address] [place] [address] PT Coag (PPP) [Time] 19.2 s High 11.9-14.2 [facility] Comment on above: Order Comment: Ongoi ng: Daily until INR is therapeutic for 2 consecutive days, then every 2 days for 14 days or until discharged. Performed By: #### P TI, PTT ####[facility] (DEFAULT)[address] [place] [address] 81912 PTTon 02-15-2025 aPTT Coag (Bld) [Time] 77.2 s High 24.0-34.3 [facility] Comment on above: Order Comment: After [...] Performed By: #### X M #### [facility] (DEFAULT) [address] [place] [address] aPTT Coag (Bld) [Time] 93.3 s High 24.0-34.3 [facility] Comment on above: Order Comment: After [...] Performed By: #### P TI, PTT ####[facility] (DEFAULT)[address] [place] [address] 19000 TYPE AND SCREENon 02-15-2025 ABO/RH(D) TYPE Positive Normal [facility] Comment on above: Performed By: #### X M #### [facility] (DEFAULT) [address] [place] [address] Specimen Expiration 02/18/2025 06:12 Normal [facility] Comment on above: Performed By: #### X M #### [facility] (DEFAULT) [address] [place] [address] 23296 CALCIUMon 02-14-2025 Calcium [Mass/Vol] 8.0 mg/dL Low 8.6-10.5 [facility] Comment on above: Performed By: #### X M #### [facility] (DEFAULT) [address] [place] [address] 45176 CBC,PLATELETSon 02-14-2025 Hematocrit (Bld) [Volume fraction] 24.3 % Low 39.6-48.8 [facility] Comment on above: Performed By: #### X M #### [facility] (DEFAULT) [address] [place] [address] 76744 Hemoglobin (Bld) [Mass/Vol] 7.4 g/dL Low 13.4-16.8 [facility] Comment on above: Performed By: #### X M #### [facility] (DEFAULT) [address] [place] [address] 38743 MCV (RBC) [Entitic vol] 110.5 fL High 79.0-94.5 [facility] Comment on above: Performed By: #### X M #### [facility] (DEFAULT) [address] [place] [address] 84123 Mean Cell Hgb 33.6 pg High 26.1-33.3 [facility] Comment on above: Performed By: #### X M #### [facility] (DEFAULT) [address] [place] [address] 44129 Mean Cell Hgb Conc 30.5 g/dL Low 31.9-36.5 [facility] Comment on above: Performed By: #### X M #### [facility] (DEFAULT) [address] [place] [address] 48537 Platelet mean volume (Bld) [Entitic vol] 9.7 fL Normal 8.7-12.3 [facility] Comment on above: Performed By: #### X M #### [facility] (DEFAULT) [address] [place] [address] 69755 Platelets (Bld) [#/Vol] 157 10*3/uL Normal 146-337 [facility] Comment on above: Performed By: #### X M #### [facility] (DEFAULT) [address] [place] [address] 97081 RBC (Bld) [#/Vol] 2.20 10*6/uL Low 4.38-5.83 [facility] Comment on above: Performed By: #### X M #### [facility] (DEFAULT) [address] [place] [address] 00262 RBC Distribution 18.6 % High 10.9-14.3 [facility] Comment on above: Performed By: #### X M #### [facility] (DEFAULT) [address] [place] [address] 05180 WBC (Bld) [#/Vol] 8.48 10*3/uL Normal 3.73-10.10 [facility] Comment on above: Performed By: #### X M #### [facility] (DEFAULT) [address] [address] CHEM 7 (LYTES,BUN,CREA,GLUC) on 02-14-2025 Anion gap [Moles/Vol] 16 mmol/L Normal 7-17 [facility] Comment on above: Performed By: #### X M #### [facility] (DEFAULT) [address] [place] [address] 11373 Chloride [Moles/Vol] 98 mmol/L Normal 98-108 [facility] Comment on above: Performed By: #### X M #### [facility] (DEFAULT) [address] [place] [address] 81102 CO2 [Moles/Vol] 26 mmol/L Normal 21-31 [facility] Comment on above: Performed By: #### X M #### [facility] (DEFAULT) [address] [place] [address] 48679 Creatinine [Mass/Vol] 4.06 mg/dL High 0.70-1.30 [facility] Comment on above: Performed By: #### X M #### [facility] (DEFAULT) [address] [address] GFR/1.73 sq M.predicted among non-blacks MDRD (S/P/Bld) [Vol rate/Area] 15 mL/min/{1.73_m2} Low >=60 [facility] Comment on above: Result Comment: Repo rted eGFR is based on the CKD-EPI 2020 equation using creatinine, age, and sex. Performed By: #### X M #### [facility] (DEFAULT) [address] [address] Glucose [Mass/Vol] 100 mg/dL Normal Nonfastin -179 mg/dL; Fastin-99 [facility] Comment on above: Performed By: #### X M #### [facility] (DEFAULT) [address] [place] [address] 45661 Osmolality [Osmolality] 285 mosm/kg Normal 278-305 [facility] Comment on above: Performed By: #### X M #### [facility] (DEFAULT) [address] [place] [address] 29048 Potassium [Moles/Vol] 3.6 mmol/L Normal 3.5-5.0 [facility] Comment on above: Performed By: #### X M #### [facility] (DEFAULT) [address] [place] [address] 30319 Sodium [Moles/Vol] 136 mmol/L Normal 135-145 [facility] Comment on above: Performed By: #### X M #### [facility] (DEFAULT) [address] [place] [address] 81488 Urea nitrogen [Mass/Vol] 13 mg/dL Normal 7-25 [facility] Comment on above: Performed By: #### X M #### [facility] (DEFAULT) [address] [place] [address] 93296 Urea nitrogen/Creatinine [Mass ratio] 3 mg/mg Normal [facility] Comment on above: Performed By: #### X M #### [facility] (DEFAULT) [address] [place] [address] 90444 FOLATE, SERUMon 02-14-2025 Folate 38.32 ng/mL Normal >5.38 [facility] Comment on above: Performed By: #### X M #### [facility] (DEFAULT) [address] [place] [address] 94073 HEPATIC FUNCTION PANELon Albumin [Mass/Vol] 3.4 g/dL Low 3.5-5.0 [facility] Comment on above: Performed By: #### X M #### [facility] (DEFAULT) [address] [place] [address] 29585 ALP [Catalytic activity/Vol] 274 U/L High 32-126 [facility] Comment on above: Performed By: #### X M #### [facility] (DEFAULT) [address] [place] [address] 11162 ALT [Catalytic activity/Vol] 15 U/L Normal 10-52 [facility] Comment on above: Performed By: #### X M #### [facility] (DEFAULT) [address] [place] [address] 55307 AST [Catalytic activity/Vol] 41 U/L High 10-39 [facility] Comment on above: Performed By: #### X M #### [facility] (DEFAULT) [address] [place] [address] 74925 Bilirubin [Mass/Vol] 0.7 mg/dL Normal <1.5 [facility] Comment on above: Performed By: #### X M #### [facility] (DEFAULT) [address] [place] [address] 87271 Bilirubin.indirect [Mass/Vol] 0.3 mg/dL High <0.3 [facility] Comment on above: Performed By: #### X M #### [facility] (DEFAULT) [address] [place] [address] 79515 Protein [Mass/Vol] 7.0 g/dL Normal 6.4-8.3 [facility] Comment on above: Performed By: #### X M #### [facility] (DEFAULT) [address] [place] [address] 87666 IMMUNOCOMPROMISED RESPIRATOR Y PANELon 02-14-2025 Adenovirus - Pcr Not detected Normal Not Detected [facility] Comment on above: Order Comment: Viral transport media (red screw top with red liquid media) or BAL - Collection must be done while wearing N-95 mask, eye protection, gown and gloves.\\X09\\Results should be used in conjunction with other clinical and laboratory findings. This result does not rule out co-infections with pathogens that are not screened for by the Respiratory Panel(RP). This RP assay was performed using a Film Array multiplex nucleic acid assay. Performed By: #### X M #### [facility] (DEFAULT) [address] [place] [address] 85859 Bordetella Parapertussis Not detected Normal Not Detected [facility] Comment on above: Order Comment: Viral transport media (red screw top with red liquid media) or BAL - Collection must be done while wearing N-95 mask, eye protection, gown and gloves.\\X09\\Results should be used in conjunction with other clinical and laboratory findings. This result does not rule out co-infections with pathogens that are not screened for by the Respiratory Panel(RP). This RP assay was performed using a Film Array multiplex nucleic acid assay. Performed By: #### X M #### [facility] (DEFAULT) [address] [address] Bordetella Pertussis Not detected Normal Not Detected [facility] Comment on above: Order Comment: Viral transport media (red screw top with red liquid media) or BAL - Collection must be done while wearing N-95 mask, eye protection, gown and gloves.\\X09\\Results should be used in conjunction with other clinical and laboratory findings. This result does not rule out co-infections with pathogens that are not screened for by the Respiratory Panel(RP). This RP assay was performed using a Film Array multiplex nucleic acid assay. Performed By: #### X M #### [facility] (DEFAULT) [address] [address] Chlamydia Pneumoniae Not detected Normal Not Detected [facility] Comment on above: Order Comment: Viral transport media (red screw top with red liquid media) or BAL - Collection must be done while wearing N-95 mask, eye protection, gown and gloves.\\X09\\Results should be used in conjunction with other clinical and laboratory findings. This result does not rule out co-infections with pathogens that are not screened for by the Respiratory Panel(RP). This RP assay was performed using a Film Array multiplex nucleic acid assay. Performed By: #### X M #### [facility] (DEFAULT) [address] [place] [address] 08879 Coronavirus 229E Not detected Normal Not Detected [facility] Comment on above: Order Comment: Viral transport media (red screw top with red liquid media) or BAL - Collection must be done while wearing N-95 mask, eye protection, gown and gloves.\\X09\\Results should be used in conjunction with other clinical and laboratory findings. This result does not rule out co-infections with pathogens that are not screened for by the Respiratory Panel(RP). This RP assay was performed using a Film Array multiplex nucleic acid assay. Performed By: #### X M #### [facility] (DEFAULT) [address] [address] Coronavirus Hku1 Not detected Normal Not Detected [facility] Comment on above: Order Comment: Viral transport media (red screw top with red liquid media) or BAL - Collection must be done while wearing N-95 mask, eye protection, gown and gloves.\\X09\\Results should be used in conjunction with other clinical and laboratory findings. This result does not rule out co-infections with pathogens that are not screened for by the Respiratory Panel(RP). This RP assay was performed using a Film Array multiplex nucleic acid assay. Performed By: #### X M #### [facility] (DEFAULT) [address] [place] [address] Coronavirus [id number] Not detected Normal Not Detected [facility] Comment on above: Order Comment: Viral transport media (red screw top with red liquid media) or BAL - Collection must be done while wearing N-95 mask, eye protection, gown and gloves.\\X09\\Results should be used in conjunction with other clinical and laboratory findings. This result does not rule out co-infections with pathogens that are not screened for by the Respiratory Panel(RP). This RP assay was performed using a Film Array multiplex nucleic acid assay. Performed By: #### X M #### [facility] (DEFAULT) [address] [address] Coronavirus Oc43 Not detected Normal Not Detected [facility] Comment on above: Order Comment: Viral transport media (red screw top with red liquid media) or BAL - Collection must be done while wearing N-95 mask, eye protection, gown and gloves.\\X09\\Results should be used in conjunction with other clinical and laboratory findings. This result does not rule out co-infections with pathogens that are not screened for by the Respiratory Panel(RP). This RP assay was performed using a Film Array multiplex nucleic acid assay. Performed By: #### X M #### [facility] (DEFAULT) [address] [place] [address] 52720 Influenza A - Pcr Not detected Normal Not Detected [facility] Comment on above: Order Comment: Viral transport media (red screw top with red liquid media) or BAL - Collection must be done while wearing N-95 mask, eye protection, gown and gloves.\\X09\\Results should be used in conjunction with other clinical and laboratory findings. This result does not rule out co-infections with pathogens that are not screened for by the Respiratory Panel(RP). This RP assay was performed using a Film Array multiplex nucleic acid assay. Performed By: #### X M #### [facility] (DEFAULT) [address] [place] [id number] Influenza B - Pcr Not detected Normal Not Detected [facility] Comment on above: Order Comment: Viral transport media (red screw top with red liquid media) or BAL - Collection must be done while wearing N-95 mask, eye protection, gown and gloves.\\X09\\Results should be used in conjunction with other clinical and laboratory findings. This result does not rule out co-infections with pathogens that are not screened for by the Respiratory Panel(RP). This RP assay was performed using a Film Array multiplex nucleic acid assay. Performed By: #### X M #### [facility] (DEFAULT) [address] [place] [address] Metapneumovirus - Pcr Detected Abnormal Not Detected [facility] Comment on above: Order Comment: Viral transport media (red screw top with red liquid media) or BAL - Collection must be done while wearing N-95 mask, eye protection, gown and gloves.\\X09\\Results should be used in conjunction with other clinical and laboratory findings. This result does not rule out co-infections with pathogens that are not screened for by the Respiratory Panel(RP). This RP assay was performed using a Film Array multiplex nucleic acid assay. Result Comment: DROP LET PLUS CONTACT ISOLATION IS REQUIRED for INPATIENTS with human metapneumovirus. Performed By: #### X M #### [facility] (DEFAULT) [address] [address] Mycoplasma Pneumoniae Not detected Normal Not Detected [facility] Comment on above: Order Comment: Viral transport media (red screw top with red liquid media) or BAL - Collection must be done while wearing N-95 mask, eye protection, gown and gloves.\\X09\\Results should be used in conjunction with other clinical and laboratory findings. This result does not rule out co-infections with pathogens that are not screened for by the Respiratory Panel(RP). This RP assay was performed using a Film Array multiplex nucleic acid assay. Performed By: #### X M #### [facility] (DEFAULT) [address] [address] Parainfluenza 1 - Pcr Not detected Normal Not Detected [facility] Comment on above: Order Comment: Viral transport media (red screw top with red liquid media) or BAL - Collection must be done while wearing N-95 mask, eye protection, gown and gloves.\\X09\\Results should be used in conjunction with other clinical and laboratory findings. This result does not rule out co-infections with pathogens that are not screened for by the Respiratory Panel(RP). This RP assay was performed using a Film Array multiplex nucleic acid assay. Performed By: #### X M #### [facility] (DEFAULT) [address] [address] Parainfluenza 2 - Pcr Not detected Normal Not Detected [facility] Comment on above: Order Comment: Viral transport media (red screw top with red liquid media) or BAL - Collection must be done while wearing N-95 mask, eye protection, gown and gloves.\\X09\\Results should be used in conjunction with other clinical and laboratory findings. This result does not rule out co-infections with pathogens that are not screened for by the Respiratory Panel(RP). This RP assay was performed using a Film Array multiplex nucleic acid assay. Performed By: #### X M #### [facility] (DEFAULT) [address] [address] Parainfluenza 3 - Pcr Not detected Normal Not Detected [facility] Comment on above: Order Comment: Viral transport media (red screw top with red liquid media) or BAL - Collection must be done while wearing N-95 mask, eye protection, gown and gloves.\\X09\\Results should be used in conjunction with other clinical and laboratory findings. This result does not rule out co-infections with pathogens that are not screened for by the Respiratory Panel(RP). This RP assay was performed using a Film Array multiplex nucleic acid assay. Performed By: #### X M #### [facility] (DEFAULT) [address] [address] Parainfluenza 4 - Pcr Not detected Normal Not Detected [facility] Comment on above: Order Comment: Viral transport media (red screw top with red liquid media) or BAL - Collection must be done while wearing N-95 mask, eye protection, gown and gloves.\\X09\\Results should be used in conjunction with other clinical and laboratory findings. This result does not rule out co-infections with pathogens that are not screened for by the Respiratory Panel(RP). This RP assay was performed using a Film Array multiplex nucleic acid assay. Performed By: #### X M #### [facility] (DEFAULT) [address] [address] Rhinovirus/Enterovirus - PCR Not detected Normal Not Detected [facility] Comment on above: Order Comment: Viral transport media (red screw top with red liquid media) or BAL - Collection must be done while wearing N-95 mask, eye protection, gown and gloves.\\X09\\Results should be used in conjunction with other clinical and laboratory findings. This result does not rule out co-infections with pathogens that are not screened for by the Respiratory Panel(RP). This RP assay was performed using a Film Array multiplex nucleic acid assay. Performed By: #### X M #### [facility] (DEFAULT) [address] [address] Rsv - Pcr Not detected Normal Not Detected [facility] Comment on above: Order Comment: Viral transport media (red screw top with red liquid media) or BAL - Collection must be done while wearing N-95 mask, eye protection, gown and gloves.\\X09\\Results should be used in conjunction with other clinical and laboratory findings. This result does not rule out co-infections with pathogens that are not screened for by the Respiratory Panel(RP). This RP assay was performed using a Film Array multiplex nucleic acid assay. Performed By: #### X M #### [facility] (DEFAULT) [address] [address] SARS-CoV-2 (COVID-19) RNA RENETTA+probe Ql (Unsp spec) Not detected Normal NOT DETECTED [facility] Comment on above: Order Comment: Viral transport media (red screw top with red liquid media) or BAL - Collection must be done while wearing N-95 mask, eye protection, gown and gloves.\\X09\\Results should be used in conjunction with other clinical and laboratory findings. This result does not rule out co-infections with pathogens that are not screened for by the Respiratory Panel(RP). This RP assay was performed using a Film Array multiplex nucleic acid assay. Performed By: #### X M #### [facility] (DEFAULT) [address] [address] LOWER RESPIRATORY CULTURE, B ACTERIALon 02-14-2025 Bacteria identified Cx Nom (Unsp spec) Normal [facility] Comment on above: Result Comment: Grow 4470 Light Growth Common oropharyngeal microbes Performed By: #### X M #### [facility] (DEFAULT) [address] [address] Microscopic observation Gram stain Nom (Unsp spec) Normal [facility] Comment on above: Result Comment: Neut rophils, Light Contaminating bacteria and epithelials present Specimen is of optimum quality Performed By: #### X M #### [facility] (DEFAULT) [address] [address] Laboratory - Chemistry and C hemistry - challengeOrdered By: Ganesh Carson on 02-14-2025 Folate [Mass/Vol] 38.32 ng/mL 5.38 - PIN F ng/mL [facility] Laboratory - Chemistry and C hemistry - challengeon 02-14-2025 Cobalamin (Vitamin B12) [Mass/Vol] 1962 pg/mL High 211 - 911 pg/mL [facility] Calcium [Mass/Vol] 8 mg/dL Low 8.6 - 10. 5 mg/dL [facility] Albumin [Mass/Vol] 3.4 g/dL Low 3.5 - 5.0 g/dL [facility] ALP [Catalytic activity/Vol] 274 U/L High 32 - 126 U/L [facility] ALT [Catalytic activity/Vol] 15 U/L 10 - 52 U/L [facility] AST [Catalytic activity/Vol] 41 U/L High 10 - 39 U/L [facility] Bilirubin [Mass/Vol] 0.7 mg/dL [facility] mg/dL [facility] Bilirubin.direct [Mass/Vol] 0.3 mg/dL High NINF - 0.3 mg/dL [facility] Magnesium [Mass/Vol] 1.7 mg/dL 1.6 - 2 .6 mg/dL [facility] Phosphate [Mass/Vol] 2.1 mg/dL Low 2.2 - 4 .6 mg/dL [facility] Protein [Mass/Vol] 7 g/dL 6.4 - 8.3 g/dL [facility] Laboratory - Chemistry and C hemistry - challengeOrdered By: Jay Chin on 02-14-2025 Anion gap [Moles/Vol] 16 mmol/L 7 - 17 mmol/L [facility] Chloride [Moles/Vol] 98 mmol/L 98 - 10 8 mmol/L [facility] CO2 [Moles/Vol] 26 mmol/L 21 - 31 mmol/L [facility] Creatinine [Mass/Vol] 4.06 mg/dL High 0.70 - 1.30 mg/dL [facility] Glucose [Mass/Vol] 100 mg/dL 70 - 179 mg/dL [facility] Osmolality Calc [Osmolality] 285 [facility] Potassium [Moles/Vol] 3.6 mmol/L 3.5 - 5.0 mmol/L [facility] Sodium [Moles/Vol] 136 mmol/L 135 - 145 mmol/L [facility] Urea nitrogen [Mass/Vol] 13 mg/dL 7 - 25 mg/dL [facility] Urea nitrogen/Creatinine [Mass ratio] 3 mg[facility] Coagulation[facility] 0 02-14-2025 aPTT Coag (PPP) [Time] 80.1 s High [facility] aPTT Coag (PPP) [Time] 94.8 s High [facility] aPTT Coag (PPP) [Time] 98.3 s High [facility] Laboratory - CoagulationOrde red By: Simone Tong on 02-14-2025 aPTT Coag (PPP) [Time] 99.9 s High [facility] INR Coag (Bld) [Relative time] 1.7 {INR} High 0.9 - 1.1 [facility] PT Coag (PPP) [Time] 19.5 s [facility]ology and Cell countson 02-14-2025 Erythrocyte distribution width (RBC) [Ratio] 18.6 % High 10.9 - 14.3 % [facility] Hematocrit (Bld) [Volume fraction] 24.3 % Low 39.6 - 48.8 % [facility] Hemoglobin (Bld) [Mass/Vol] 7.4 g/dL Low 13.4 - 16.8 g/dL [facility] MCH (RBC) [Entitic mass] 33.6 pg High 26.1 - 33.[address] [facility] MCHC (RBC) [Mass/Vol] 30.5 g/dL Low 31.9 - 36.5 g/dL [facility] MCV (RBC) [Entitic vol] 110.5 fL High 79.0 - 94.[address] [facility] Platelet mean volume (Bld) [Entitic vol] 9.7 fL 8.7 - 12.[address] [facility] Platelets (Bld) [#/Vol] 157 10*3/uL 146 - 337 K/uL [facility] RBC (Bld) [#/Vol] 2.2 10*6/uL [facility] WBC (Bld[facility] [#/Vol] 8.48 10*3/uL 3.73 - 10. 10 K/uL [facility] MAGNESIUMon 02-14-2025 Magnesium [Mass/Vol] 1.7 mg/dL Normal 1.6-2.6 [facility] Comment on above: Performed By: #### X M #### [facility] (DEFAULT) [address] [place] [address] No Panel Informationon 02-14 Interpretation and review of laboratory results Abnormal [facility] Interpretation and review of laboratory results Abnormal [facility] Interpretation and review of laboratory results Abnormal [facility] Interpretation and review of laboratory results Abnormal [facility] Interpretation and review of laboratory results Abnormal [facility] Interpretation and review of laboratory results Normal [facility] Interpretation and review of laboratory results Abnormal [facility] Interpretation and review of laboratory results Abnormal [facility] No Panel InformationOrdered By: Ganesh Carson on 02-14-2025 Interpretation and review of laboratory results Normal [facility] No Panel InformationOrdered By: Unassigned Pacs on 02-14-2025 [facility] Work Phone: No Panel InformationOrdered By: Jay Chin on 02-14-2025 eGFR, CKD-EPI, Male 15 Low - PINF [facility] Interpretation and review of laboratory results Abnormal [facility] No Panel InformationOrdered By: Simone Tong on 02-14-2025 Interpretation and review of laboratory results Abnormal [facility] PHOSPHATE, INORGANICon 02-14 Phosphorous 2.1 mg/dL Low 2.2-4.6 [facility] Comment on above: Performed By: #### X M #### [facility] (DEFAULT) [address] [place] [address] PT,INR,PTTon 02-14-2025 aPTT Coag (Bld) [Time] 99.9 s High 24.0-34.3 [facility] Comment on above: Performed By: #### X M #### [facility] (DEFAULT) [address] [place] [address] INR Coag (PPP) [Relative time] 1.7 {INR} High 0.9-1.1 [facility] Comment on above: Performed By: #### X M #### [facility] (DEFAULT) [address] [place] [address] PT Coag (PPP) [Time] 19.5 s High 11.9-14.2 [facility] Comment on above: Performed By: #### X M #### [facility] (DEFAULT) [address] [place] [address] PTTon 02-14-2025 aPTT Coag (Bld) [Time] 80.1 s High 24.0-34.3 [facility] Comment on above: Order Comment: After [...] Performed By: #### X M #### [facility] (DEFAULT) [address] [place] [address] aPTT Coag (Bld) [Time] 94.8 s High 24.0-34.3 [facility] Comment on above: Order Comment: After [...] medication administration instructions. Performed By: #### H [facility] #### [facility] (DEFAULT) [address] [place] [address] aPTT Coag (Bld) [Time] 98.3 s High 24.0-34.3 [facility] Comment on above: Order Comment: After [...] instructions. Performed By: #### X M #### [facility] (DEFAULT) [address] [place] [address] Respiratory virus DNA+RNA NA A+probe Nom (Unsp spec)Ordered By: Jairon Jiménez on 02-14-2025 Adenovirus DNA RENETTA+probe Nom (Unsp spec) Not detected Not Detected [facility] B. parapertussis DNA RENETTA+probe Ql (Unsp spec) Not detected Not Detected [facility] B. pertussis DNA RENETTA+probe Ql (Unsp spec) Not detected Not Detected [facility] C. pneumoniae DNA RENETTA+probe Ql (Unsp spec) Not detected Not Detected [facility] FLUAV RNA RENETTA+probe Ql (Unsp spec) Not detected Not Detected [facility] FLUBV RNA RENETTA+probe Ql (Unsp spec) Not detected Not Detected [facility] HCoV 229E RNA RENETTA+non-probe Ql (Nph) Not detected Not Detected [facility] HCoV HKU1 RNA RENETTA+non-probe Ql (Nph) Not detected Not Detected [facility] HCoV NL63 RNA RENETTA+non-probe Ql (Nph) Not detected Not Detected [facility] HCoV OC43 RNA RENETTA+non-probe Ql (Nph) Not detected Not Detected [facility] hMPV A RNA RENETTA+probe Ql (Unsp spec) Detected Abnormal Not Detected [facility] Interpretation and review of laboratory results Abnormal [facility] M. pneumoniae DNA RENETTA+probe Ql (Unsp spec) Not detected Not Detected [facility] Parainfluenza virus 1 RNA RENETTA+probe Ql (Unsp spec) Not detected Not Detected [facility] Parainfluenza virus 2 RNA RENETTA+probe Ql (Unsp spec) Not detected Not Detected [facility] Parainfluenza virus 3 RNA RENETTA+probe Ql (Unsp spec) Not detected Not Detected [facility] Parainfluenza virus 4 RNA RENETTA+probe Ql (Unsp spec) Not detected Not Detected [facility] Rhinovirus+Enterovirus RNA RENETTA+probe Ql (Unsp spec) Not detected Not Detected [facility] RSV RNA RENETTA+probe Ql (Unsp spec) Not detected Not Detected [facility] SARS-CoV-2 (COVID-19) RNA RENETTA+probe Ql (Unsp spec) Not detected NOT DETECTED [facility] VITAMIN B12on 02-14-2025 Cobalamin (Vitamin B12) [Mass/Vol] 1962 pg/mL High 211-911 [facility] Comment on above: Result Comment: Test ing of Methylmalonic Acid and Intrinsic Factor Blocking Antibody are recommended if clinical suspicion for pernicious anemia due to B12 deficiency is high for patients with intermediate B12 levels (211 to 400 pg/mL) to rule out spurious heterophile antibodies. Performed By: #### X M #### [facility] (DEFAULT) [address] [place] [address] CALCIUMon 02-13-2025 Calcium [Mass/Vol] 7.5 mg/dL Low 8.6-10.5 [facility] Comment on above: Performed By: #### X M #### [facility] (DEFAULT) [address] [address] CBC AND ELECTRONIC DIFFon Abs Baso Auto < Normal 0.00-0.09 [facility] Comment on above: Performed By: #### X M #### [facility] (DEFAULT) [address] [place] [address] Basophils/100 WBC (Bld) 0.4 % Normal [facility] Comment on above: Performed By: #### X M #### [facility] (DEFAULT) [address] [place] [address] DIFF STATUS Electronic Differential Normal [facility] Comment on above: Performed By: #### X M #### [facility] (DEFAULT) [address] [address] Eosinophils (Bld) [#/Vol] 0.14 10*3/uL Normal 0.00-0.48 [facility] Comment on above: Performed By: #### X M #### [facility] (DEFAULT) [address] [address] Eosinophils/100 WBC (Bld) 1.8 % Normal [facility] Comment on above: Performed By: #### X M #### [facility] (DEFAULT) [address] [address] Hematocrit (Bld) [Volume fraction] 24.4 % Low 39.6-48.8 [facility] Comment on above: Performed By: #### X M #### [facility] (DEFAULT) [address] [address] Hemoglobin (Bld) [Mass/Vol] 7.3 g/dL Low 13.4-16.8 [facility] Comment on above: Performed By: #### X M #### [facility] (DEFAULT) [address] [place] [address] Immature Grans % 0.8 % Normal [facility] Comment on above: Performed By: #### X M #### [facility] (DEFAULT) [address] [place] [address] Immature Grans Absolute 0.06 K/uL Normal <=0.07 [facility] Comment on above: Performed By: #### X M #### [facility] (DEFAULT) [address] [place] [address] Lymphocytes (Bld) [#/Vol] 1.34 10*3/uL Normal 0.83-3.57 [facility] Comment on above: Performed By: #### X M #### [facility] (DEFAULT) [address] [address] Lymphocytes/100 WBC (Bld) 16.9 % Normal [facility] Comment on above: Performed By: #### X M #### [facility] (DEFAULT) [address] [place] [address] MCV (RBC) [Entitic vol] 110.4 fL High 79.0-94.5 [facility] Comment on above: Performed By: #### X M #### [facility] (DEFAULT) [address] [address] Mean Cell Hgb 33.0 pg Normal 26.1-33.3 [facility] Comment on above: Performed By: #### X M #### [facility] (DEFAULT) [address] [address] Mean Cell Hgb Conc 29.9 g/dL Low 31.9-36.5 [facility] Comment on above: Performed By: #### X M #### [facility] (DEFAULT) [address] [place] [address] Monocytes (Bld) [#/Vol] 0.90 10*3/uL Normal 0.24-0.93 [facility] Comment on above: Performed By: #### X M #### [facility] (DEFAULT) [address] [place] [address] Monocytes/100 WBC (Bld) 11.3 % Normal [facility] Comment on above: Performed By: #### X M #### [facility] (DEFAULT) [address] [place] [address] Nucleated RBC 0.0 /100 WBC Normal <=0.2 [facility] Comment on above: Performed By: #### X M #### [facility] (DEFAULT) [address] [place] [address] Platelet mean volume (Bld) [Entitic vol] 9.5 fL Normal 8.7-12.3 [facility] Comment on above: Performed By: #### X M #### [facility] (DEFAULT) [address] [place] [address] Platelets (Bld) [#/Vol] 139 10*3/uL Low 146-337 [facility] Comment on above: Performed By: #### X M #### [facility] (DEFAULT) [address] [place] [address] RBC (Bld) [#/Vol] 2.21 10*6/uL Low 4.38-5.83 [facility] Comment on above: Performed By: #### X M #### [facility] (DEFAULT) [address] [place] [address] RBC Distribution 18.6 % High 10.9-14.3 [facility] Comment on above: Performed By: #### X M #### [facility] (DEFAULT) [address] [place] [address] Segs + Bands Auto 68.8 % Normal [facility] Comment on above: Performed By: #### X M #### [facility] (DEFAULT) [address] [place] [address] Segs + Bands,Absolute Auto 5.46 K/uL Normal 1.57-6.19 [facility] Comment on above: Performed By: #### X M #### [facility] (DEFAULT) [address] [address] WBC (Bld) [#/Vol] 7.93 10*3/uL Normal 3.73-10.10 [facility] Comment on above: Performed By: #### X M #### [facility] (DEFAULT) [address] [address] CBC,PLATELETSon 02-13-2025 Hematocrit (Bld) [Volume fraction] 24.7 % Low 39.6-48.8 [facility] Comment on above: Order Comment: Basel ine: within 24 hours prior to treatment initiationOngoing: as needed for monitoring Performed By: #### X M #### [facility] (DEFAULT) [address] [address] Hemoglobin (Bld) [Mass/Vol] 7.6 g/dL Low 13.4-16.8 [facility] Comment on above: Order Comment: Basel ine: within 24 hours prior to treatment initiationOngoing: as needed for monitoring Performed By: #### X M #### [facility] (DEFAULT) [address] [address] MCV (RBC) [Entitic vol] 109.8 fL High 79.0-94.5 [facility] Comment on above: Order Comment: Basel ine: within 24 hours prior to treatment initiationOngoing: as needed for monitoring Performed By: #### X M #### [facility] (DEFAULT) [address] [address] Mean Cell Hgb 33.8 pg High 26.1-33.3 [facility] Comment on above: Order Comment: Basel ine: within 24 hours prior to treatment initiationOngoing: as needed for monitoring Performed By: #### X M #### [facility] (DEFAULT) [address] [address] Mean Cell Hgb Conc 30.8 g/dL Low 31.9-36.5 [facility] Comment on above: Order Comment: Basel ine: within 24 hours prior to treatment initiationOngoing: as needed for monitoring Performed By: #### X M #### [facility] (DEFAULT) [address] [address] Platelet mean volume (Bld) [Entitic vol] 10.1 fL Normal 8.7-12.3 [facility] Comment on above: Order Comment: Basel ine: within 24 hours prior to treatment initiationOngoing: as needed for monitoring Performed By: #### X M #### [facility] (DEFAULT) [address] [address] Platelets (Bld) [#/Vol] 156 10*3/uL Normal 146-337 [facility] Comment on above: Order Comment: Basel ine: within 24 hours prior to treatment initiationOngoing: as needed for monitoring Performed By: #### X M #### [facility] (DEFAULT) [address] [address] RBC (Bld) [#/Vol] 2.25 10*6/uL Low 4.38-5.83 [facility] Comment on above: Order Comment: Basel ine: within 24 hours prior to treatment initiationOngoing: as needed for monitoring Performed By: #### X M #### [facility] (DEFAULT) [address] [address] RBC Distribution 18.9 % High 10.9-14.3 [facility] Comment on above: Order Comment: Basel ine: within 24 hours prior to treatment initiationOngoing: as needed for monitoring Performed By: #### X M #### [facility] (DEFAULT) [address] [address] WBC (Bld) [#/Vol] 8.91 10*3/uL Normal 3.73-10.10 [facility] Comment on above: Order Comment: Basel ine: within 24 hours prior to treatment initiationOngoing: as needed for monitoring Performed By: #### X M #### [facility] (DEFAULT) [address] [place] [address] CHEM 7 (LYTES,BUN,CREA,GLUC) on 02-13-2025 Anion gap [Moles/Vol] 16 mmol/L Normal 7-17 [facility] Comment on above: Performed By: #### X M #### [facility] (DEFAULT) [address] [place] [address] Chloride [Moles/Vol] 97 mmol/L Low 98-108 [facility] Comment on above: Performed By: #### X M #### [facility] (DEFAULT) [address] [place] [address] CO2 [Moles/Vol] 31 mmol/L Normal 21-31 [facility] Comment on above: Performed By: #### X M #### [facility] (DEFAULT) [address] [place] [address] Creatinine [Mass/Vol] 7.16 mg/dL High 0.70-1.30 [facility] Comment on above: Performed By: #### X M #### [facility] (DEFAULT) [address] [place] [address]693 GFR/1.73 sq M.predicted among non-blacks MDRD (S/P/Bld) [Vol rate/Area] 7 mL/min/{1.73_m2} Low >=60 [facility] Comment on above: Result Comment: Repo rted eGFR is based on the CKD-EPI 2020 equation using creatinine, age, and sex. Performed By: #### X M #### [facility] (DEFAULT) [address] [place] [address] 73836 Glucose [Mass/Vol] 87 mg/dL Normal Nonfastin -179 mg/dL; Fastin-99 [facility] Comment on above: Performed By: #### X M #### [facility] (DEFAULT) [address] [place] [address] 21684 Osmolality [Osmolality] 298 mosm/kg Normal 278-305 [facility] Comment on above: Performed By: #### X M #### [facility] (DEFAULT) [address] [place] [address] 50284 Potassium [Moles/Vol] 3.6 mmol/L Normal 3.5-5.0 [facility] Comment on above: Performed By: #### X M #### [facility] (DEFAULT) [address] [place] [address] Sodium [Moles/Vol] 140 mmol/L Normal 135-145 [facility] Comment on above: Performed By: #### X M #### [facility] (DEFAULT) [address] [place] [address] 73594 Urea nitrogen [Mass/Vol] 33 mg/dL High 7-25 [facility] Comment on above: Performed By: #### X M #### [facility] (DEFAULT) [address] [place] [address] 65324 Urea nitrogen/Creatinine [Mass ratio] 5 mg/mg Normal [facility] Comment on above: Performed By: #### X M #### [facility] (DEFAULT) [address] [place] [address] CHEST (INTERPRETATION - O UTSIDE IMAGE)on [...] requested. 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 Normal [facility] CT Cheston 02-13-[address] [facility] Radiology Study observation (narrative) [facility] CT ChestOrdered By: Kaden Patterson on 02-13-2025 [facility] Work Phone: Chronic hepatitis differenti ation between hepatitis B and C virus panelon 02-13-2025 HBV core IgG+IgM Ql (S) Negative Negative [facility] HBV surface Ab IA Ql (S) Negative Negative [facility] HCV Ab Ql (S) Negative Negative [facility] Interpretation and review of laboratory results Normal [facility] DIALYSIS HEP PANEL-CHRONICon 02-13-2025 Hep B Core Ab,Total (IgG+IgM) Negative Normal Negative [facility] Comment on above: Performed By: #### X M #### [facility] (DEFAULT) [address] [address] Hep B Surface Ab Negative Normal Negative [facility] Comment on above: Performed By: #### X M #### [facility] (DEFAULT) [address] [address] Hepatitis C Antibody Negative Normal Negative [facility] Comment on above: Performed By: #### X M #### [facility] (DEFAULT) [address] [place] [address]3092 Electrocardiogram reportOrde red By: Niels Flores on 02-13-2025 EKG study [facility] Work Phone: HEP B SURFACE AG-Marylou 01-18 Hepatitis B Surface Ag-Stat Negative Normal Negative [facility] Comment on above: Performed By: #### X M #### [facility] (DEFAULT) [address] [place] [address]4813 HEPATIC FUNCTION PANELon Albumin [Mass/Vol] 3.3 g/dL Low 3.5-5.0 [facility] Comment on above: Performed By: #### X M #### [facility] (DEFAULT) [address] [place] [address]12 ALP [Catalytic activity/Vol] 265 U/L High 32-126 [facility] Comment on above: Performed By: #### X M #### [facility] (DEFAULT) [address] [place] [address] 15703 ALT [Catalytic activity/Vol] 19 U/L Normal 10-52 [facility] Comment on above: Performed By: #### X M #### [facility] (DEFAULT) [address] [place] [address] 14962 AST [Catalytic activity/Vol] 40 U/L High 10-39 [facility] Comment on above: Performed By: #### X M #### [facility] (DEFAULT) [address] [place] [address]002 Bilirubin [Mass/Vol] 0.7 mg/dL Normal <1.5 [facility] Comment on above: Performed By: #### X M #### [facility] (DEFAULT) [address] [place] [address] 35243 Bilirubin.indirect [Mass/Vol] 0.3 mg/dL High <0.3 [facility] Comment on above: Performed By: #### X M #### [facility] (DEFAULT) [address] [place] [address] 21949 Protein [Mass/Vol] 6.8 g/dL Normal 6.4-8.3 [facility] Comment on above: Performed By: #### X M #### [facility] (DEFAULT) [address] [place] [address] 82100 LACTATE DEHYDROGENASEon 01-18 LD Total 301 U/L High 100-190 [facility] Comment on above: Performed By: #### P TT #### [facility] (DEFAULT) [address] [address] Laboratory - Chemistry and C hemistry - challengeon 02-13-2025 LDH Lactate to pyruvate reaction [Catalytic activity/Vol] 301 U/L High 100 - 190 U/L [facility] Protein [Mass/Vol] 7 g/dL 6.4 - 8.3 g/dL [facility] Albumin [Mass/Vol] 3.3 g/dL Low 3.5 - 5.0 g/dL [facility] ALP [Catalytic activity/Vol] 265 U/L High 32 - 126 U/L [facility] ALT [Catalytic activity/Vol] 19 U/L 10 - 52 U/L [facility] Anion gap [Moles/Vol] 16 mmol/L 7 - 17 mmol/L [facility] AST [Catalytic activity/Vol] 40 U/L High 10 - 39 U/L [facility] Bilirubin [Mass/Vol] 0.7 mg/[facility] mg/dL [facility] Bilirubin.direct [Mass/Vol] 0.3 mg/dL High NINF - 0.3 mg/dL [facility] Calcium [Mass/Vol] 7.5 mg/dL Low 8.6 - 10. 5 mg/dL [facility] Chloride [Moles/Vol] 97 mmol/L Low 98 - 10 8 mmol/L [facility] CO2 [Moles/Vol] 31 mmol/L 21 - 31 mmol/L [facility] Creatinine [Mass/Vol] 7.16 mg/dL High 0.70 - 1.30 mg/dL [facility] Glucose [Mass/Vol] 87 mg/dL 70 - 179 mg/dL [facility] Magnesium [Mass/Vol] 1.8 mg/dL 1.6 - 2 .6 mg/dL [facility] Osmolality Calc [Osmolality] [facility] Phosphate [Mass/Vol] 2.9 mg/dL 2.2 - 4 .6 mg/dL [facility] Potassium [Moles/Vol] 3.6 mmol/L 3.5 - 5.0 mmol/L [facility] Protein [Mass/Vol] 6.8 g/dL 6.4 - 8.3 g/dL [facility] Sodium [Moles/Vol] 140 mmol/L 135 - 145 mmol/L [facility] Urea nitrogen [Mass/Vol] 33 mg/dL High 7 - 25 mg/dL [facility] Urea nitrogen/Creatinine [Mass ratio] 5 mg/mg [facility] Laboratory - Coagulationon 0 02-13-2025 aPTT Coag (PPP) [Time] 60.5 s High [facility] INR Coag (Bld) [Relative time] 1.7 {INR} High 0.9 - 1.1 [facility] PT Coag (PPP) [Time] [address] [facility] Laboratory - Hematology and Cell countson 02-13-2025 Erythrocyte distribution width (RBC) [Ratio] 18.9 % High 10.9 - 14.3 % [facility] Hematocrit (Bld) [Volume fraction] 24.7 % Low 39.6 - 48.8 % [facility] Hemoglobin (Bld) [Mass/Vol] 7.6 g/dL Low 13.4 - 16.8 g/dL [facility] MCH (RBC) [Entitic mass] 33.8 pg High 26.1 - 33.[address] [facility] MCHC (RBC) [Mass/Vol] 30.8 g/dL Low 31.9 - 36.5 g/dL [facility] MCV (RBC) [Entitic vol] 109.8 fL High 79.0 - 94.[address] [facility] Platelet mean volume (Bld) [Entitic vol] 10.1 fL 8.7 - 12.[address] [facility] Platelets (Bld) [#/Vol] 156 10*3/uL 146 - 337 K/uL [facility] RBC (Bld) [#/Vol] 2.25 10*6/uL Low [facility] WBC (Bld) [#/Vol] 8.91 10*3/uL 3.73 - 10. 10 K/uL [facility] Basophils (Bld) [#/Vol] K/uL 0.00 - 0.09 K/uL [facility] Basophils/100 WBC (Bld) 0.4 % [facility] Differential cell count method Nom (Bld) Electronic Differential [facility] Eosinophils (Bld) [#/Vol] 0.14 10*3/uL 0.00 - 0.48 K/uL [facility] Eosinophils/100 WBC (Bld) 1.8 % [facility] Erythrocyte distribution width (RBC) [Ratio] 18.6 % High 10.9 - 14.3 % [facility] Hematocrit (Bld) [Volume fraction] 24.4 % Low 39.6 - 48.8 % [facility] Hemoglobin (Bld) [Mass/Vol] 7.3 g/dL Low 13.4 - 16.8 g/dL [facility] Immature granulocytes (Bld) [#/Vol] 0.06 10*3/uL NINF - 0.07 K/uL [facility] Immature granulocytes/100 WBC (Bld) 0.8 % [facility] Lymphocytes (Bld) [#/Vol] 1.34 10*3/uL 0.83 - 3.57 K/uL [facility] Lymphocytes/100 WBC (Bld) 16.9 % [facility] MCH (RBC) [Entitic mass] 33 pg 26.1 - 33.[address] [facility] MCHC (RBC) [Mass/Vol] 29.9 g/dL Low 31.9 - 36.5 g/dL [facility] MCV (RBC) [Entitic vol] 110.4 fL High 79.0 - 94.[address] [facility] Monocytes (Bld) [#/Vol] 0.9 10*3/uL 0.24 - 0.93 K/uL [facility] Monocytes/100 WBC (Bld) 11.3 % [facility] Neutrophils (Bld) [#/Vol] 5.46 10*3/uL 1.57 - 6.19 K/uL [facility] Nucleated RBC/100 WBC (Bld) [Ratio] 0 % NINF [facility] Platelet mean volume (Bld) [Entitic vol] 9.5 fL 8.7 - 12.[address] [facility] Platelets (Bld) [#/Vol] 139 10*3/uL Low 146 - 337 K/uL [facility] RBC (Bld) [#/Vol] 2.21 10*6/uL Low [facility] Segmented neutrophils/100 WBC (Bld) 68.8 % [facility] WBC (Bld) [#/Vol] 7.93 10*3/uL 3.73 - 10. 10 K/uL [facility] Laboratory - Microbiology an d Antimicrobial susceptibilityOrdered By: Helga Yang on 02-13-2025 HBV surface Ag Ql (S) Negative Negative [facility] MAGNESIUMon 02-13-2025 Magnesium [Mass/Vol] 1.8 mg/dL Normal 1.6-2.6 [facility] Comment on above: Performed By: #### X M #### [facility] (DEFAULT) [address] [place] [address] No Panel Informationon 02-13 Interpretation and review of laboratory results Abnormal [facility] Interpretation and review of laboratory results Abnormal [facility] Interpretation and review of laboratory results Abnormal [facility] Interpretation and review of laboratory results Normal [facility] Interpretation and review of laboratory results Abnormal [facility] eGFR, CKD-EPI, Male 7 Low - PINF [facility] Interpretation and review of laboratory results Abnormal [facility] Interpretation and review of laboratory results Normal [facility] Interpretation and review of laboratory results Abnormal [facility] No Panel InformationOrdered By: Helga Yang on 02-13-2025 Interpretation and review of laboratory results Normal [facility] PHOSPHATE, INORGANICon 02-13 Phosphorous 2.9 mg/dL Normal 2.2-4.6 [facility] Comment on above: Performed By: #### X M #### [facility] (DEFAULT) [address] [place] [address] PROTEIN TOTALon 02-13-2025 Protein [Mass/Vol] 7.0 g/dL Normal 6.4-8.3 [facility] Comment on above: Performed By: #### P TT #### [facility] (DEFAULT) [address] [place] [address]26 PROTIME-INRon 02-13-2025 INR Coag (PPP) [Relative time] 1.7 {INR} High 0.9-1.1 [facility] Comment on above: Order Comment: Basel ine: within 24 hours prior to treatment initiationCheck for duplicate INR orders within the last 24 hours Performed By: #### X M #### [facility] (DEFAULT) [address] [place] [address] PT Coag (PPP) [Time] 20.0 s High 11.9-14.2 [facility] Comment on above: Order Comment: Basel ine: within 24 hours prior to treatment initiationCheck for duplicate INR orders within the last 24 hours Performed By: #### X M #### [facility] (DEFAULT) [address] [place] [address] 16986 PTTon 02-13-2025 aPTT Coag (Bld) [Time] 60.5 s High 24.0-34.3 [facility] Comment on above: Order Comment: Draw prior to initiation of intravenous Heparin. Performed By: #### X M #### [facility] (DEFAULT) [address] [place] [address]18 ALP [Catalytic activity/Vol] Ordered By: Kaveh Hadley on 02-12-2025 Serum or plasma alkaline phosphatase measurement 361 U/L High 40-129 [facility] ALT [Catalytic activity/Vol] Ordered By: Kaveh Hadley on 02-12-2025 Serum or plasma alanine aminotransferase (ALT) measurement 25 U/L <47 [facility] Absolute lymphocyte countOrd ered By: Kaveh Hadley on 02-12-2025 Lymphocytes Auto (Unsp spec) [#/Vol] 1.03 10*3/uL 0.83-4.51 [facility] Absolute lymphocyte countOrd ered By: Castro Ferrara on 02-12-2025 Lymphocytes Auto (Unsp spec) [#/Vol] 1.23 10*3/uL 0.83-4.51 [facility] Absolute neutrophil countOrd ered By: Kaveh Hadley on 02-12-2025 Absolute neutrophil count 5.9 X10^3/uL 2.0-7.7 [facility] Absolute neutrophil countOrd ered By: Castro Ferrara on 02-12-2025 Absolute neutrophil count 5.7 X10^3/uL 2.0-7.7 [facility] Activated partial thrombopla stin time (aPTT) in platelet poor plasma by coagulation aOrdered By: Kaveh Hadley on 02-12-2025 aPTT Coag (PPP) [Time] 66.1 s High 24.1-36.2 [facility] Albumin [Mass/Vol]Ordered By : Kaveh Hadley on 02-12-2025 Serum or plasma albumin measurement (mass/volume) 3.4 g/dL 3.4-4.8 [facility] Albumin/Globulin [Mass ratio ]Ordered By: Kaveh Hadley on 02-12-2025 Serum or plasma albumin/globulin mass ratio 1.0 RATIO 0.9-2.4 [facility] Anion gap [Moles/Vol]Ordered By: Kaveh Hadley on 02-12-2025 Anion gap in Serum or Plasma 21 High 5-15 [facility] Anion gap [Moles/Vol]Ordered By: Castro Ferrara on 02-12-2025 Anion gap in Serum or Plasma 20 High 5-15 [facility] Anion gap in Serum or Plasma Ordered By: Kaveh Hadley on 02-12-2025 Anion gap [Moles/Vol] 21 mmol/L High 5-15 [facility] Anion gap in Serum or Plasma Ordered By: Castro Ferrara on 02-12-2025 Anion gap [Moles/Vol] 20 mmol/L High 5-15 [facility] Automated lymphocyte count a s percentage of total leukocytesOrdered By: Kaveh Hadley on 02-12-2025 Lymphocytes/100 WBC Auto (Unsp spec) 13.1 % Low -41 [facility] Automated lymphocyte count a s percentage of total leukocytesOrdered By: Castro Ferrara on 02-12-2025 Lymphocytes/100 WBC Auto (Unsp spec) 15.8 % Low 19-41 [facility] BUN/creatinine ratioOrdered By: Kaveh Hadley on 02-12-2025 Urea nitrogen/Creatinine [Mass ratio] 4.4 mg/mg Low 10-20 [facility] BUN/creatinine ratio 4.4 RATIO Low 10-20 [facility] BUN/creatinine ratioOrdered By: Castro Ferrara on 02-12-2025 Urea nitrogen/Creatinine [Mass ratio] 4.2 mg/mg Low 10-20 [facility] BUN/creatinine ratio 4.2 RATIO Low 10-20 [facility] Basophil percentageOrdered B y: Kaveh Hadley on 02-12-2025 Basophils/100 WBC (Bld) 0.4 % 0-1 [facility] Basophil [facility] 0.4 % 0-1 [facility] Basophil percentageOrdered B y: Castro Ferrara on 02-12-2025 Basophils/100 WBC (Bld) 0.4 % 0-[address] [facility] Basophil percentage 0.4 % 0-1 [facility] Bilirubin, totalOrdered By: Kaveh Hadley on 02-12-2025 Bilirubin [Mass/Vol] 0.59 mg/dL 0.00-1.30 [facility] Bilirubin, total 0.59 mg/dL 0.00-1.30 [facility] Blood cultureOrdered By: Michelet Hadley on 02-12-2025 Bacteria identified Cx Nom (Bld) No growth in 5 days. [facility] Bacteria identified Cx Nom (Bld) No growth in 5 days. [facility] Blood manual differential co mment interpretation (narrative result)Ordered By: Castro Ferrara on 02-12-2025 Manual differential comment [place] (Bld) [Interp] @SLIDESCANNED [facility] Calcium [Mass/Vol]Ordered By : Kaveh Hadley on 02-12-2025 Serum or plasma calcium measurement (mass/volume) 8.1 mg/dL 7.6-11.0 [facility] Calcium [Mass/Vol]Ordered By : Castro Ferrara on 02-12-2025 Serum or plasma calcium measurement (mass/volume) 8.3 mg/dL 7.6-11.0 [facility] Carbon dioxide, total [Moles /volume] in Central venous bloodOrdered By: Kaveh Hadley on 02-12-2025 CO2 [Moles/Vol] 23.1 mmol/L 21.0-32.0 [facility] Carbon dioxide, total [Moles/volume] in Central venous blood 23.1 mmol/L 21.0-32.0 [facility] Carbon dioxide, total [Moles /volume] in Central venous bloodOrdered By: Castro Ferrara on 02-12-2025 CO2 [Moles/Vol] 23.2 mmol/L 21.0-32.0 [facility] Carbon dioxide, total [Moles/volume] in Central venous blood 23.2 mmol/L 21.0-32.0 [facility] Chloride assayOrdered By: Rommel Hadley on 02-12-2025 Chloride [Moles/Vol] 94 mmol/L Low 98-108 [facility] Chloride assay 94 mmol/L Low 98-108 [facility] Chloride assayOrdered By: Shailesh Ferrara on 02-12-2025 Chloride [Moles/Vol] 93 mmol/L Low 98-108 [facility] Chloride assay 93 mmol/L Low 98-108 [facility] Creatinine [Mass/Vol]Ordered By: Kaveh Hadley on 02-12-2025 Serum creatinine measurement (mass/volume) 6.24 mg/dL High 0.70-1.20 [facility] Creatinine [Mass/Vol]Ordered By: Castro Ferrara on 02-12-2025 Serum creatinine measurement (mass/volume) 5.84 mg/dL High 0.70-1.20 [facility] Eosinophil percentageOrdered By: Kaveh Hadley on 02-12-2025 Eosinophils/100 WBC (Bld) 1.7 % 0-5 [facility] Eosinophil percentage 1.7 % 0-5 [facility] Eosinophil percentageOrdered By: Castro Ferrara on 02-12-2025 Eosinophils/100 WBC (Bld) 1.9 % 0-5 [facility] Eosinophil percentage 1.9 % 0-5 [facility] Erythrocyte distribution wid th (RBC) [Entitic vol]Ordered By: Kaveh Hadley on 02-12-2025 Erythrocyte distribution width standard deviation 71.6 fl High 35.1-43.9 [facility] Erythrocyte distribution wid th (RBC) [Entitic vol]Ordered By: Castro Ferrara on 02-12-2025 Erythrocyte distribution width standard deviation 73.6 fl High 35.1-43.9 [facility] Erythrocyte distribution wid th (RBC) [Ratio]Ordered By: Kaveh Hadley on 02-12-2025 Erythrocyte distribution width ratio 18.6 % High 11.6-14.6 [facility] Erythrocyte distribution wid th (RBC) [Ratio]Ordered By: Castro Ferrara on 02-12-2025 Erythrocyte distribution width ratio 18.7 % High 11.6-14.6 [facility] Erythrocyte distribution wid th ratioOrdered By: Kaveh Hadley on 02-12-2025 Erythrocyte distribution width (RBC) [Ratio] 18.6 % High 11.6-14.6 [facility] Erythrocyte distribution wid th ratioOrdered By: Castro Ferrara on 02-12-2025 Erythrocyte distribution width (RBC) [Ratio] 18.7 % High 11.6-14.6 [facility] Erythrocyte distribution wid th standard deviationOrdered By: Kaveh Hadley on 02-12-2025 Erythrocyte distribution width (RBC) [Ratio] 71.6 fl High 35.1-43.9 [facility] Erythrocyte distribution wid th standard deviationOrdered By: Castro Ferrara on 02-12-2025 Erythrocyte distribution width (RBC) [Ratio] 73.6 fl High 35.1-43.9 [facility] Erythrocyte morphology asses smentOrdered By: Kaveh Hadley on 02-12-2025 RBC morphology finding Nom (Bld) N CHROM NORMAL NORM C&C [facility] Erythrocyte morphology asses smentOrdered By: Castro Ferrara on 02-12-2025 RBC morphology finding Nom (Bld) N CHROM NORMAL NORM C&C [facility] Estimation of creatinine omkar aranceOrdered By: Kaveh Hadley on 02-12-2025 Estimation of creatinine clearance 9.56 ml/min Low 50-250 [facility] GFR/1.73 sq M.predicted bonnie g non-blacks MDRD (S/P/Bld) [Vol rate/Area]Ordered By: Kaveh Hadley on 02-12-2025 Glomerular filtration rate (GFR) estimation/1.73 sq m using serum, plasma, or whole b 9 Low >60 [facility] GFR/1.73 sq M.predicted bonnie g non-blacks MDRD (S/P/Bld) [Vol rate/Area]Ordered By: Castro Ferrara on 02-12-2025 Glomerular filtration rate (GFR) estimation/1.73 sq m using serum, plasma, or whole b 9 Low >60 [facility] Glomerular filtration rate ( GFR) estimation/1.73 sq m using serum, plasma, or whole bOrdered By: Kaveh Hadley on 02-12-2025 GFR/1.73 sq M.predicted among non-blacks MDRD (S/P/Bld) [Vol rate/Area] 9 mL/min/{1.73_m2} Low >60 [facility] Glomerular filtration rate ( GFR) estimation/1.73 sq m using serum, plasma, or whole bOrdered By: Castro Ferrara on 02-12-2025 GFR/1.73 sq M.predicted among non-blacks MDRD (S/P/Bld) [Vol rate/Area] 9 mL/min/{1.73_m2} Low >60 [facility] Glucose [Mass/Vol]Ordered By : Kaveh Hadley on 02-12-2025 Serum glucose measurement (mass/volume) 97 mg/dL 70-99 [facility] Glucose [Mass/Vol]Ordered By : Castro Ferrara on 02-12-2025 Serum glucose measurement (mass/volume) 91 mg/dL 70-99 [facility] Hematocrit Auto (Bld) [Volum e fraction]Ordered By: Kaveh Hadley on 02-12-2025 Hematocrit (Bld) [Volume fraction] 25.0 % Low 40-54 [facility] Automated blood hematocrit (percentage) 25.0 % Low 40-54 [facility] Hematocrit Auto (Bld) [Volum e fraction]Ordered By: Castro Ferrara on 02-12-2025 Hematocrit (Bld) [Volume fraction] 24.8 % Low 40-54 [facility] Automated blood hematocrit (percentage) 24.8 % Low 40-54 [facility] Hemoglobin measurementOrdere d By: Kaveh Hadley on 02-12-2025 Hemoglobin (Bld) [Mass/Vol] 8.1 g/dL Low 13.0-16.5 [facility] Hemoglobin measurement 8.1 g/dL Low 13.0-16.5 [facility] Hemoglobin measurementOrdere d By: Castro Ferrara on 02-12-2025 Hemoglobin (Bld) [Mass/Vol] 7.8 g/dL Low 13.0-16.5 [facility] Hemoglobin measurement 7.8 g/dL Low 13.0-16.5 [facility] Hypochromatic red blood cell detectionOrdered By: Kaveh Hadley on 02-12-2025 Hypochromia Ql (Bld) RARE [facility] Hypochromatic red blood cell detection RARE [facility] Immature granulocytes/100 WB C Auto (Bld)Ordered By: Kaveh Hadley on 02-12-2025 Immature granulocytes/100 WBC (Bld) 1.000 % High 0.0-0.9 [facility] Automated immature granulocyte percentage 1.000 % High 0.0-0.9 [facility] Immature granulocytes/100 WB C Auto (Bld)Ordered By: Castro Ferrara on 02-12-2025 Immature granulocytes/100 WBC (Bld) 0.800 % 0.0-0.9 [facility] Automated immature granulocyte percentage 0.800 % 0.0-0.9 [facility] International normalized rat io (INR) calculationOrdered By: Kaveh Hadley on 02-12-2025 International normalized ratio (INR) calculation 1.4 [facility] Lactic acid measurementOrder ed By: Kaveh Hadley on 02-12-2025 Lactic acid measurement 3.0 mmol/L High 0.0-2.[address] [facility] Lower GI hemoglobin IA Ql (S tl)Ordered By: Kaveh Hadley on 02-12-2025 Stool gastrointestinal hemoglobin detection by immunologic method Positive Abnormal [facility] Lymphocytes Auto (Unsp spec) [#/Vol]Ordered By: Kaveh Hadley on 02-12-2025 Absolute lymphocyte count 1.03 X10^3/uL 0.83-4.51 [facility] Lymphocytes Auto (Unsp spec) [#/Vol]Ordered By: Castro Ferrara on 02-12-2025 Absolute lymphocyte count 1.23 X10^3/uL 0.83-4.51 [facility] Lymphocytes/100 WBC Auto (Un sp spec)Ordered By: Kaveh Hadley on 02-12-2025 Automated lymphocyte count as percentage of total leukocytes 13.1 % Low 19-41 [facility] Lymphocytes/100 WBC Auto (Un sp spec)Ordered By: Castro Ferrara on 02-12-2025 Automated lymphocyte count as percentage of total leukocytes 15.8 % Low 19-41 [facility] MCV (RBC) [Entitic vol]Order ed By: Kaveh Hadley on 02-12-2025 MCV (mean corpuscular volume) determination 106.8 fL High 80-94 [facility] MCV (RBC) [Entitic vol]Order ed By: Castro Ferrara on 02-12-2025 MCV (mean corpuscular volume) determination 108.3 fL High 80-94 [facility] MCV (mean corpuscular volume ) determinationOrdered By: Kaveh Hadley on 02-12-2025 MCV (RBC) [Entitic vol] 106.8 fL High 80-[address] [facility] MCV (mean corpuscular volume ) determinationOrdered By: Castro Ferrara on 02-12-2025 MCV (RBC) [Entitic vol] 108.3 fL High 80-[address] [facility] Macrocytes detectionOrdered By: Kaveh Hadley on 02-12-2025 Macrocytes Ql (Bld) 1+ [facility] Macrocytes detection 1+ [facility] Macrocytes detectionOrdered By: Castro Ferrara on 02-12-2025 Macrocytes Ql (Bld) 1+ [facility] Macrocytes detection 1+ [facility] Manual differential comment [place] (Bld) [Interp]Ordered By: Castro Ferrara on 02-12-2025 Blood manual differential comment interpretation (narrative result) @SLIDESCANNED [facility] Mean corpuscular hemoglobin (MCH) determinationOrdered By: Kaveh Hadley on 02-12-2025 MCH (RBC) [Entitic mass] 34.6 pg High 27.0-32.0 [facility] Mean corpuscular hemoglobin (MCH) determination 34.6 pg High 27.0-32.0 [facility] Mean corpuscular hemoglobin (MCH) determinationOrdered By: Castro Ferrara on 02-12-2025 MCH (RBC) [Entitic mass] 34.1 pg High 27.0-32.0 [facility] Mean corpuscular hemoglobin (MCH) determination 34.1 pg High 27.0-32.0 [facility] Mean corpuscular hemoglobin concentration (MCHC) determinationOrdered By: Kaveh Hadley on 02-12-2025 Mean corpuscular hemoglobin concentration (MCHC) determination 32.4 g/dL 32-36 [facility] Mean corpuscular hemoglobin concentration (MCHC) determinationOrdered By: Castro Ferrara on 02-12-2025 Mean corpuscular hemoglobin concentration (MCHC) determination 31.5 g/dL Low 32-36 [facility] Mean platelet volume determi nationOrdered By: Kaveh Hadley on 02-12-2025 Mean platelet volume determination 10.4 fl 6.2-12.0 [facility] Mean platelet volume determi nationOrdered By: Castro Ferrara on 02-12-2025 Mean platelet volume determination 10.5 fl 6.2-12.0 [facility] Monocyte percentageOrdered B y: Kaveh Hadley on 02-12-2025 Monocytes/100 WBC (Bld) 9.3 % 0-10 [facility] Monocyte percentage 9.3 % 0-10 [facility] Monocyte percentageOrdered B y: Castro Ferrara on 02-12-2025 Monocytes/100 WBC (Bld) 8.7 % 0-10 [facility] Monocyte percentage 8.7 % 0-10 [facility] Neutrophil percentageOrdered By: Kaveh Hadley on 02-12-2025 Neutrophils/100 WBC (Bld) 74.5 % High 47-70 [facility] Neutrophil percentage 74.5 % High 47-70 [facility] Neutrophil percentageOrdered By: Castro Ferrara on 02-12-2025 Neutrophils/100 WBC (Bld) 72.4 % High 47-70 [facility] Neutrophil percentage 72.4 % High 47-70 [facility] No Panel InformationOrdered By: Kaveh Hadley on 02-12-2025 72 U/L High <38 [facility] No Panel InformationOrdered By: Castro Ferrara on 02-12-2025 92839 pg/mL High <1800 [facility] Nucleated red blood cell per centageOrdered By: Kaveh Hadley on 02-12-2025 Nucleated red blood cell percentage 0.3 % 0-5 [facility] Nucleated red blood cell per centageOrdered By: Castro Ferrara on 02-12-2025 Nucleated red blood cell percentage 0 % 0-5 [facility] Ovalocyte detectionOrdered B y: Kaveh Hadley on 02-12-2025 Ovalocytes LM Ql (Bld) RARE [facility] Ovalocyte detectionOrdered B y: Castro Ferrara on 02-12-2025 Ovalocytes LM Ql (Bld) 1+ [facility] Platelet countOrdered By: Rommel Hadley on 02-12-2025 Platelets (Bld) [#/Vol] 151 10*3/uL 150-450 [facility] Platelet count 151 K/mm3 150-450 [facility] Platelet countOrdered By: Shailesh Ferrara on 02-12-2025 Platelets (Bld) [#/Vol] 146 10*3/uL Low 150-450 [facility] Platelet count 146 K/mm3 Low 150-450 [facility] Platelet estimateOrdered By: Kaveh Hadley on 02-12-2025 Platelets LM Ql (Bld) ADEQUATE ADEQ [facility] Platelet estimateOrdered By: Castro Ferrara on 02-12-2025 Platelets LM Ql (Bld) ADEQUATE ADEQ [facility] Platelets LM Ql (Bld)Ordered By: Kaveh Hadley on 02-12-2025 Platelet estimate ADEQUATE ADEQ [facility] Platelets LM Ql (Bld)Ordered By: Castro Ferrara on 02-12-2025 Platelet estimate ADEQUATE ADEQ [facility] Potassium (Unsp spec) [Mass/ Vol]Ordered By: Kaveh Hadley on 02-12-2025 Potassium measurement (mass/volume) 3.8 mmol/L 3.3-5.1 [facility] Potassium (Unsp spec) [Mass/ Vol]Ordered By: Castro Ferrara on 02-12-2025 Potassium measurement (mass/volume) 3.3 mmol/L 3.3-5.1 [facility] Potassium measurement (mass/ volume)Ordered By: Kaveh Hadley on 02-12-2025 Potassium (Unsp spec) [Mass/Vol] 3.8 mmol/L 3.3-5.1 [facility] Potassium measurement (mass/ volume)Ordered By: Castro Ferrara on 02-12-2025 Potassium (Unsp spec) [Mass/Vol] 3.3 mmol/L 3.3-5.1 [facility] Prothrombin timeOrdered By: Kaveh Hadley on 02-12-2025 PT Coag (PPP) [Time] 17.9 s High 11.7-14.9 [facility] Prothrombin time 17.9 SECONDS High 11.7-14.9 [facility] RBC Auto (Bld) [#/Vol]Ordere d By: Kaveh Hadley on 02-12-2025 RBC (Bld) [#/Vol] 2.34 10*6/uL Low 4.6-6.2 [facility] Automated blood erythrocyte count 2.34 M/mm3 Low 4.6-6.2 [facility] RBC Auto (Bld) [#/Vol]Ordere d By: Castro Ferrara on 02-12-2025 RBC (Bld) [#/Vol] 2.29 10*6/uL Low 4.6-6.2 [facility] Automated blood erythrocyte count 2.29 M/mm3 Low 4.6-6.2 [facility] RBC morphology finding Nom ( Bld)Ordered By: Kaveh Hadley on 02-12-2025 Erythrocyte morphology assessment N CHROM NORMAL NORM C&C [facility] RBC morphology finding Nom ( Bld)Ordered By: Castro Ferrara on 02-12-2025 Erythrocyte morphology assessment N CHROM NORMAL NORM C&C [facility] Serum creatinine measurement (mass/volume)Ordered By: Kaveh Hadley on 02-12-2025 Creatinine [Mass/Vol] 6.24 mg/dL High 0.70-1.20 [facility] Serum creatinine measurement (mass/volume)Ordered By: Castro Ferrara on 02-12-2025 Creatinine [Mass/Vol] 5.84 mg/dL High 0.70-1.20 [facility] Serum globulin measurementOr dered By: Kaveh Hadley on 02-12-2025 Globulin (S) [Mass/Vol] 3.5 g/dL 2.2-4.[address] [facility] Serum globulin measurement 3.5 g/dL 2.2-4.2 [facility] Serum glucose measurement (m ass/volume)Ordered By: Kaveh Hadley on 02-12-2025 Glucose [Mass/Vol] 97 mg/dL 70- [facility] Serum glucose measurement (m ass/volume)Ordered By: Castro Ferrara on 02-12-2025 Glucose [Mass/Vol] 91 mg/dL 70-99 [facility] Serum or plasma alanine lorenzana otransferase (ALT) measurementOrdered By: Kaveh Hadley on 02-12-2025 ALT [Catalytic activity/Vol] 25 U/L <47 [facility] Serum or plasma albumin khalif urement (mass/volume)Ordered By: Kaveh Hadley on 02-12-2025 Albumin [Mass/Vol] 3.4 g/dL 3.4-4.8 [facility] Serum or plasma albumin/glob ulin mass ratioOrdered By: Kaveh Hadley on 02-12-2025 Albumin/Globulin [Mass ratio] 1.0 {ratio} 0.9-2.4 [facility] Serum or plasma alkaline guille sphatase measurementOrdered By: Kaveh Hadley on 02-12-2025 ALP [Catalytic activity/Vol] 361 U/L High 40-129 [facility] Serum or plasma calcium khalif urement (mass/volume)Ordered By: Kaveh Hadley on 02-12-2025 Calcium [Mass/Vol] 8.1 mg/dL 7.6-11.0 [facility] Serum or plasma calcium khalif urement (mass/volume)Ordered By: Castro Ferrara on 02-12-2025 Calcium [Mass/Vol] 8.3 mg/dL 7.6-11.0 [facility] Serum or plasma urea nitroge n measurement (mass/volume)Ordered By: Kaveh Hadley on 02-12-2025 Urea nitrogen [Mass/Vol] 28 mg/dL High - [facility] Serum or plasma urea nitroge n measurement (mass/volume)Ordered By: Castro Ferrara on 02-12-2025 Urea nitrogen [Mass/Vol] 25 mg/dL High 03-07 [facility] Sodium levelOrdered By: Kody Hadley on 02-12-2025 Sodium [Moles/Vol] 139 mmol/L 133-145 [facility] Sodium level 139 mmol/L 133-145 [facility] Sodium levelOrdered By: Castro Ferrara on 02-12-2025 Sodium [Moles/Vol] 137 mmol/L 133-145 [facility] Sodium level 137 mmol/L 133-145 [facility] Stool gastrointestinal hemog lobin detection by immunologic methodOrdered By: Kaveh Hadley on 02-12-2025 Lower GI hemoglobin IA Ql (Stl) Positive Abnormal [facility] Total proteinOrdered By: Michelet Hdaley on 02-12-2025 Protein [Mass/Vol] 6.9 g/dL 5.9-8.4 [facility] Total protein 6.9 g/dL 5.9-8.4 [facility] Urea nitrogen [Mass/Vol]Orde red By: Kaveh Hadley on 02-12-2025 Serum or plasma urea nitrogen measurement (mass/volume) 28 mg/dL High - [facility] Urea nitrogen [Mass/Vol]Orde red By: Castro Ferrara on 02-12-2025 Serum or plasma urea nitrogen measurement (mass/volume) 25 mg/dL High 4-19 [facility] Venous blood ammonia measure mentOrdered By: Castro Ferrara on 02-12-2025 Ammonia (P) [Moles/Vol] 27.3 umol/L [facility] Venous blood ammonia measurement 27.3 umol/L [facility] White blood cell (WBC) count Ordered By: Kaveh Hadley on 02-12-2025 WBC (Bld) [#/Vol] 7.9 10*3/uL 4.4-11.0 [facility] White blood cell (WBC) count 7.9 K/mm3 4.4-11.0 [facility] White blood cell (WBC) count Ordered By: Castro Ferrara on 02-12-2025 WBC (Bld) [#/Vol] 7.8 10*3/uL 4.4-11.0 [facility] White blood cell (WBC) count 7.8 K/mm3 4.4-11.0 [facility] aPTT Coag (PPP) [Time]Ordere d By: Kaveh Hadley on 02-12-2025 Activated partial thromboplastin time (aPTT) in platelet poor plasma by coagulation a 66.1 Seconds High 24.1-36.2 [facility] No Panel InformationOrdered By: Jane Torres on 02-11-2025 2.7 [facility] No Panel InformationOrdered By: Jane Torres on 02-09-2025 1.9 [facility] No Panel InformationOrdered By: Jane Torres on 02-02-2025 4.1 [facility] No Panel InformationOrdered By: Jane Torres on 01-26-2025 3.9 [facility] Hematocrit Auto (Bld) [Volum e fraction]Ordered By: Bruce Calderon on 01-22-2025 Hematocrit (Bld) [Volume fraction] 31.3 % Low 40-54 [facility] Automated blood hematocrit (percentage) 31.3 % Low 4054 [facility] Hemoglobin measurementOrdere d By: Bruce Calderon on 01-22-2025 Hemoglobin (Bld) [Mass/Vol] 10.1 g/dL Low 13.0-16.5 [facility] Hemoglobin measurement 10.1 g/dL Low 13.0-16.5 [facility] No Panel Informationon 01-19 3.6 [facility] No Panel Informationon 01-05 3.9 [facility] No Panel InformationOrdered By: Jane Torres on 01-02-2025 3.2 [facility] No Panel Informationon 12-29 2.3 [facility] No Panel InformationOrdered By: Esa Mckeon on 12-24-2024 1.9 [facility] No Panel InformationOrdered By: Jane Torres on 12-22-2024 1.9 [facility] CASE REQUEST DEPARTMENT USE ONLY INTERVENTIONAL RADIOLOGY: REPAIR CENTRAL VENOUS ACCESS DEVICE CATHETER W/O PORT PUMPon 12-19-2024 ROSE Liriano 12/19/2024 10:51 AM CASE REQUEST DEPARTMENT USE ONLY INTERVENTIONAL RADIOLOGY: REPAIR CENTRAL VENOUS ACCESS DEVICE CATHETER W/O PORT PUMP Procedure Date: 12/19/2024 Performed by: ROSE Liriano Authorized by: PATRICIA Nina DIAGNOSIS End stage renal disease Indications Indications: broken port [place] Protocol Verbal consent obtained Risks and benefits were discussed. Consent given by: patient Patient identity confirmed: verbally with patient time out called Checklist was followed: Yes Procedure Details Hand hygiene used Landmarks identified Skin prep agent completely dried prior to procedure Maximum sterile barriers were used: cap, mask, sterile gown, sterile gloves, and large sterile sheet Location: right [facility] Patient position: Supine Anesthesia: Local anesthesia used: [...] capped. There were no complications. ROSE Liriano [facility] Radiology Study observation (narrative) [facility] CBC,PLATELETSon 12-19-2024 Erythrocyte distribution width (RBC) [Ratio] 17.7 % High 10.9 - 14.3 % [facility] Hematocrit (Bld) [Volume fraction] 35.8 % Low 39.6 - 48.8 % [facility] Hemoglobin (Bld) [Mass/Vol] 11.3 g/dL Low 13.4 - 16.8 g/dL [facility] Interpretation and review of laboratory results Abnormal [facility] MCH (RBC) [Entitic mass] 33.5 pg High 26.1 - 33.[address] [facility] MCHC (RBC) [Mass/Vol] 31.6 g/dL Low 31.9 - 36.5 g/dL [facility] MCV (RBC) [Entitic vol] 106.2 fL High 79.0 - 94.[address] [facility] Platelet mean volume (Bld) [Entitic vol] 10.3 fL 8.7 - 12.[address] [facility] Platelets (Bld) [#/Vol] 201 10*3/uL 146 - 337 K/uL [facility] RBC (Bld) [#/Vol] 3.37 10*6/uL Low [facility] WBC (Bld) [#/Vol] 9.85 10*3/uL 3.73 - 10. 10 K/uL [facility] Hematocrit (Bld) [Volume fraction] 35.8 % Low 39.6-48.8 [facility] Comment on above: Performed By: #### X M #### [facility] (DEFAULT) [address] [place] [address] Hemoglobin (Bld) [Mass/Vol] 11.3 g/dL Low 13.4-16.8 [facility] Comment on above: Performed By: #### X M #### [facility] (DEFAULT) [address] [address] MCV (RBC) [Entitic vol] 106.2 fL High 79.0-94.5 [facility] Comment on above: Performed By: #### X M #### [facility] (DEFAULT) [address] [address] Mean Cell Hgb 33.5 pg High 26.1-33.3 [facility] Comment on above: Performed By: #### X M #### [facility] (DEFAULT) [address] [address] Mean Cell Hgb Conc 31.6 g/dL Low 31.9-36.5 [facility] Comment on above: Performed By: #### X M #### [facility] (DEFAULT) [address] [address] Platelet mean volume (Bld) [Entitic vol] 10.3 fL Normal 8.7-12.3 [facility] Comment on above: Performed By: #### X M #### [facility] (DEFAULT) [address] [address] Platelets (Bld) [#/Vol] 201 10*3/uL Normal 146-337 [facility] Comment on above: Performed By: #### X M #### [facility] (DEFAULT) [address] [address] RBC (Bld) [#/Vol] 3.37 10*6/uL Low 4.38-5.83 [facility] Comment on above: Performed By: #### X M #### [facility] (DEFAULT) [address] [address] RBC Distribution 17.7 % High 10.9-14.3 [facility] Comment on above: Performed By: #### X M #### [facility] (DEFAULT) [address] [place] [address] WBC (Bld) [#/Vol] 9.85 10*3/uL Normal 3.73-10.10 [facility] Comment on above: Performed By: #### X M #### [facility] (DEFAULT) [address] [place] [address] CHEM 7 (LYTES,BUN,CREA,GLUC) on 12-19-2024 Anion gap [Moles/Vol] 21 mmol/L High 7 - 17 mmol/L [facility] Chloride [Moles/Vol] 94 mmol/L Low 98 - 10 8 mmol/L [facility] CO2 [Moles/Vol] 25 mmol/L 21 - 31 mmol/L [facility] Creatinine [Mass/Vol] 9.09 mg/dL High 0.70 - 1.30 mg/dL [facility] eGFR, CKD-EPI, Male 6 Low - PINF [facility] Comment on above: Reported eGFR is bas ed on the CKD-EPI 2020 equation using creatinine, age, and sex. Glucose [Mass/Vol] 83 mg/dL 70 - 99 mg/dL [facility] Interpretation and review of laboratory results Abnormal [facility] Osmolality Calc [Osmolality] 299 [facility] Potassium [Moles/Vol] 4.5 mmol/L 3.5 - 5.0 mmol/L [facility] Sodium [Moles/Vol] 135 mmol/L 135 - 145 mmol/L [facility] Urea nitrogen [Mass/Vol] 58 mg/dL High 7 - 25 mg/dL [facility] Urea nitrogen/Creatinine [Mass ratio] 6 mg/mg [facility] Anion gap [Moles/Vol] 21 mmol/L High 7-17 [facility] Comment on above: Performed By: #### X M #### [facility] (DEFAULT) [address] [place] [address] Chloride [Moles/Vol] 94 mmol/L Low 98-108 [facility] Comment on above: Performed By: #### X M #### [facility] (DEFAULT) [address] [place] [address] CO2 [Moles/Vol] 25 mmol/L Normal 21-31 [facility] Comment on above: Performed By: #### X M #### [facility] (DEFAULT) [address] [place] [address] Creatinine [Mass/Vol] 9.09 mg/dL High 0.70-1.30 [facility] Comment on above: Performed By: #### X M #### [facility] (DEFAULT) [address] [place] [address] GFR/1.73 sq M.predicted among non-blacks MDRD (S/P/Bld) [Vol rate/Area] 6 mL/min/{1.73_m2} Low >=60 [facility] Comment on above: Result Comment: Repo rted eGFR is based on the CKD-EPI 2020 equation using creatinine, age, and sex. Performed By: #### X M #### [facility] (DEFAULT) [address] [place] [address] Glucose [Mass/Vol] 83 mg/dL Normal 70-99 [facility] Comment on above: Performed By: #### X M #### [facility] (DEFAULT) [address] [place] [address] Osmolality [Osmolality] 299 mosm/kg Normal 278-305 [facility] Comment on above: Performed By: #### X M #### [facility] (DEFAULT) [address] [place] [address] Potassium [Moles/Vol] 4.5 mmol/L Normal 3.5-5.0 [facility] Comment on above: Performed By: #### X M #### [facility] (DEFAULT) [address] [place] [address] Sodium [Moles/Vol] 135 mmol/L Normal 135-145 [facility] Comment on above: Performed By: #### X M #### [facility] (DEFAULT) [address] [place] [address] Urea nitrogen [Mass/Vol] 58 mg/dL High 7-25 [facility] Comment on above: Performed By: #### X M #### [facility] (DEFAULT) [address] [place] [address] Urea nitrogen/Creatinine [Mass ratio] 6 mg/mg Normal [facility] Comment on above: Performed By: #### X M #### [facility] (DEFAULT) [address] [place] [address] No Panel Informationon 12-19 2.0 [facility] PT,INR,PTTon 12-19-2024 aPTT Coag (PPP) [Time] 80.4 s High [facility] INR Coag (Bld) [Relative time] 2.0 {INR} High 0.9 - 1.1 [facility] Interpretation and review of laboratory results Abnormal [facility] PT Coag (PPP) [Time] 22.3 s High [facility] aPTT Coag (Bld) [Time] 80.4 s High 24.0-34.3 [facility] Comment on above: Performed By: #### X M #### [facility] (DEFAULT) [address] [place] [address] INR Coag (PPP) [Relative time] 2.0 {INR} High 0.9-1.1 [facility] Comment on above: Performed By: #### X M #### [facility] (DEFAULT) [address] [place] [address] PT Coag (PPP) [Time] 22.3 s High 11.9-14.2 [facility] Comment on above: Performed By: #### X M #### [facility] (DEFAULT) [address] [place] [address] CBC,PLATELETSon 12-18-2024 Erythrocyte distribution width (RBC) [Ratio] 17.8 % High 10.9 - 14.3 % [facility] Hematocrit (Bld) [Volume fraction] 33.8 % Low 39.6 - 48.8 % [facility] Hemoglobin (Bld) [Mass/Vol] 11.0 g/dL Low 13.4 - 16.8 g/dL [facility] Interpretation and review of laboratory results Abnormal [facility] MCH (RBC) [Entitic mass] 34.4 pg High 26.1 - 33.[address] [facility] MCHC (RBC) [Mass/Vol] 32.5 g/dL 31.9 - 36.5 g/dL [facility] MCV (RBC) [Entitic vol] 105.6 fL High 79.0 - 94.[address] [facility] Platelet mean volume (Bld) [Entitic vol] 9.9 fL 8.7 - 12.[address] [facility] Platelets (Bld) [#/Vol] 198 10*3/uL 146 - 337 K/uL [facility] RBC (Bld) [#/Vol] 3.20 10*6/uL Low [facility] WBC (Bld) [#/Vol] 9.74 10*3/uL 3.73 - 10. 10 K/uL [facility] Hematocrit (Bld) [Volume fraction] 33.8 % Low 39.6-48.8 [facility] Comment on above: Performed By: #### X M #### [facility] (DEFAULT) [address] [place] [address] Hemoglobin (Bld) [Mass/Vol] 11.0 g/dL Low 13.4-16.8 [facility] Comment on above: Performed By: #### X M #### [facility] (DEFAULT) [address] [place] [address] MCV (RBC) [Entitic vol] 105.6 fL High 79.0-94.5 [facility] Comment on above: Performed By: #### X M #### [facility] (DEFAULT) [address] [address] Mean Cell Hgb 34.4 pg High 26.1-33.3 [facility] Comment on above: Performed By: #### X M #### [facility] (DEFAULT) [address] [address] Mean Cell Hgb Conc 32.5 g/dL Normal 31.9-36.5 [facility] Comment on above: Performed By: #### X M #### [facility] (DEFAULT) [address] [address] Platelet mean volume (Bld) [Entitic vol] 9.9 fL Normal 8.7-12.3 [facility] Comment on above: Performed By: #### X M #### [facility] (DEFAULT) [address] [address] Platelets (Bld) [#/Vol] 198 10*3/uL Normal 146-337 [facility] Comment on above: Performed By: #### X M #### [facility] (DEFAULT) [address] [address] RBC (Bld) [#/Vol] 3.20 10*6/uL Low 4.38-5.83 [facility] Comment on above: Performed By: #### X M #### [facility] (DEFAULT) [address] [address] RBC Distribution 17.8 % High 10.9-14.3 [facility] Comment on above: Performed By: #### X M #### [facility] (DEFAULT) [address] [address] WBC (Bld) [#/Vol] 9.74 10*3/uL Normal 3.73-10.10 [facility] Comment on above: Performed By: #### X M #### [facility] (DEFAULT) [address] [address] CHEM 7 (LYTES,BUN,CREA,GLUC) on 12-18-2024 Anion gap [Moles/Vol] 17 mmol/L 7 - 17 mmol/L [facility] Chloride [Moles/Vol] 93 mmol/L Low 98 - 10 8 mmol/L [facility] CO2 [Moles/Vol] 28 mmol/L 21 - 31 mmol/L [facility] Creatinine [Mass/Vol] 8.06 mg/dL High 0.70 - 1.30 mg/dL [facility] eGFR, CKD-EPI, Male 6 Low - PINF [facility] Comment on above: Reported eGFR is bas ed on the CKD-EPI 2020 equation using creatinine, age, and sex. Glucose [Mass/Vol] 89 mg/dL 70 - 99 mg/dL [facility] Osmolality Calc [Osmolality] 294 [facility] Potassium [Moles/Vol] 5.2 mmol/L High 3.5 - 5.0 mmol/L [facility] Comment on above: Specimen slightly he molyzed. Potassium results may be falsey elevated by more than 0.5 mmol/L. Consider recollection. Sodium [Moles/Vol] 133 mmol/L Low 135 - 145 mmol/L [facility] Urea nitrogen [Mass/Vol] 48 mg/dL High 7 - 25 mg/dL [facility] Urea nitrogen/Creatinine [Mass ratio] 6 mg/mg [facility] Anion gap [Moles/Vol] 17 mmol/L Normal 7-17 [facility] Comment on above: Performed By: #### X M #### [facility] (DEFAULT) [address] [place] [address] Chloride [Moles/Vol] 93 mmol/L Low 98-108 [facility] Comment on above: Performed By: #### X M #### [facility] (DEFAULT) [address] [place] [address] CO2 [Moles/Vol] 28 mmol/L Normal 21-31 [facility] Comment on above: Performed By: #### X M #### [facility] (DEFAULT) [address] [place] [address] Creatinine [Mass/Vol] 8.06 mg/dL High 0.70-1.30 [facility] Comment on above: Performed By: #### X M #### [facility] (DEFAULT) [address] [place] [id number] GFR/1.73 sq M.predicted among non-blacks MDRD (S/P/Bld) [Vol rate/Area] 6 mL/min/{1.73_m2} Low >=60 [facility] Comment on above: Result Comment: Repo rted eGFR is based on the CKD-EPI 2020 equation using creatinine, age, and sex. Performed By: #### X M #### [facility] (DEFAULT) [address] [place] [address] [id number] Glucose [Mass/Vol] 89 mg/dL Normal 70-99 [facility] Comment on above: Performed By: #### X M #### [facility] (DEFAULT) [address] [place] [address] 88560 Osmolality [Osmolality] 294 mosm/kg Normal 278-305 [facility] Comment on above: Performed By: #### X M #### [facility] (DEFAULT) [address] [place] [address] 66876 Potassium [Moles/Vol] 5.2 mmol/L High 3.5-5.0 [facility] Comment on above: Result Comment: Spec imen slightly hemolyzed. Potassium results may be falsey elevated by more than 0.5 mmol/L. Consider recollection. Performed By: #### X M #### [facility] (DEFAULT) [address] [place] [address] 32006 Sodium [Moles/Vol] 133 mmol/L Low 135-145 [facility] Comment on above: Performed By: #### X M #### [facility] (DEFAULT) [address] [place] [address] 90174 Urea nitrogen [Mass/Vol] 48 mg/dL High 7-25 [facility] Comment on above: Performed By: #### X M #### [facility] (DEFAULT) [address] [place] [address] 16307 Urea nitrogen/Creatinine [Mass ratio] 6 mg/mg Normal [facility] Comment on above: Performed By: #### X M #### [facility] (DEFAULT) [address] [place] [address] HEPATIC FUNCTION PANELon Albumin [Mass/Vol] 4.2 g/dL 3.5 - 5.0 g/dL [facility] ALP [Catalytic activity/Vol] 375 U/L High 32 - 126 U/L [facility] ALT [Catalytic activity/Vol] 37 U/L 10 - 52 U/L [facility] AST [Catalytic activity/Vol] 48 U/L High 10 - 39 U/L [facility] Comment on above: Specimen slightly he molyzed. AST results may be falsely elevated. Interpret within the clinical context. Bilirubin [Mass/Vol] 1.1 mg/dL [facility] - 1.5 mg/dL [facility] Bilirubin.direct [Mass/Vol] 0.2 mg/dL [facility] - 0.3 mg/dL [facility] Comment on above: Specimen hemolyzed. Direct bilirubin results may be falsely decreased. Interpret within the clinical context. Protein [Mass/Vol] 8.6 g/dL High 6.4 - 8.3 g/dL [facility] Albumin [Mass/Vol] 4.2 g/dL Normal 3.5-5.0 [facility] Comment on above: Performed By: #### X M #### [facility] (DEFAULT) [address] [place] [address] 8[address]11 ALP [Catalytic activity/Vol] 375 U/L High 32-126 [facility] Comment on above: Performed By: #### X M #### [facility] (DEFAULT) [address] [place] [address] ALT [Catalytic activity/Vol] 37 U/L Normal 10-52 [facility] Comment on above: Performed By: #### X M #### [facility] (DEFAULT) [address] [place] [address] 39296 AST [Catalytic activity/Vol] 48 U/L High 10-39 [facility] Comment on above: Result Comment: Spec imen slightly hemolyzed. AST results may be falsely elevated. Interpret within the clinical context. Performed By: #### X M #### [facility] (DEFAULT) [address] [place] [address] 15023 Bilirubin [Mass/Vol] 1.1 mg/dL Normal <1.5 [facility] Comment on above: Performed By: #### X M #### [facility] (DEFAULT) [address] [place] [address] 22100 Bilirubin.indirect [Mass/Vol] 0.2 mg/dL Normal <0.3 [facility] Comment on above: Result Comment: Spec imen hemolyzed. Direct bilirubin results may be falsely decreased. Interpret within the clinical context. Performed By: #### X M #### [facility] (DEFAULT) [address] [place] [address] 24296 Protein [Mass/Vol] 8.6 g/dL High 6.4-8.3 [facility] Comment on above: Performed By: #### X M #### [facility] (DEFAULT) [address] [place] [address] 55702 No Panel Informationon 12-18 Interpretation and review of laboratory results Abnormal [facility] PT,INR,PTTon 12-18-2024 aPTT Coag (PPP) [Time] 75.2 s High [facility] INR Coag (Bld) [Relative time] 1.9 {INR} High 0.9 - 1.1 [facility] Interpretation and review of laboratory results Abnormal [facility] PT Coag (PPP) [Time] 21.8 s High [facility] aPTT Coag (Bld) [Time] 75.2 s High 24.0-34.3 [facility] Comment on above: Performed By: #### X M #### [facility] (DEFAULT) [address] [place] [address] 51687 INR Coag (PPP) [Relative time] 1.9 {INR} High 0.9-1.1 [facility] Comment on above: Performed By: #### X M #### [facility] (DEFAULT) [address] [place] [address] [phone] PT Coag (PPP) [Time] 21.8 s High 11.9-14.2 [facility] Comment on above: Performed By: #### X M #### [facility] (DEFAULT) [address] [place] [address] 29087 Absolute lymphocyte countOrd ered By: Marquis Gomes on 12-17-2024 Lymphocytes Auto (Unsp spec) [#/Vol] 1.79 10*3/uL 0.83-4.51 [facility] Absolute neutrophil countOrd ered By: Marquis Gomes on 12-17-2024 Absolute neutrophil count 5.8 X10^3/uL 2.0-7.7 [facility] Automated lymphocyte count a s percentage of total leukocytesOrdered By: Marquis Gomes on 12-17-2024 Lymphocytes/100 WBC Auto (Unsp spec) 19.3 % 19-41 [facility] Basophil percentageOrdered B y: Marquis Gomes on 12-17-2024 Basophils/100 WBC (Bld) 0.8 % 0-[address] [facility] 0.8 % 0-[facility] Blood manual differential co mment interpretation (narrative result)Ordered By: Marquis Gomes on 12-17-2024 Manual differential comment [place] (Bld) [Interp] SCANNED [facility] Blood urea nitrogen (BUN)/cr eatinine ratioOrdered By: Marquis Gomes on 12-17-2024 Blood urea nitrogen (BUN)/creatinine ratio 6.3 RATIO Low 10-20 [facility] Calcium [Mass/Vol]Ordered By : Marquis Gomes on 12-17-2024 Serum or plasma calcium measurement (mass/volume) 8.6 mg/dL 8.5-10.1 [facility] Carbon dioxide measurementOr dered By: Marquis Gomes on 12-17-2024 CO2 [Moles/Vol] 24.0 mmol/L 21.0-32.0 [facility] Carbon dioxide measurement 24.0 mmol/L 21.0-32.0 [facility] Chloride measurementOrdered By: Marquis Gomes on 12-17-2024 Chloride [Moles/Vol] 94 mmol/L Low 98-107 [facility] Chloride measurement 94 mmol/L Low 98-107 [facility] Creatinine [Mass/Vol]Ordered By: Marquis Gomes on 12-17-2024 Serum or plasma creatinine measurement (mass/volume) 6.65 mg/dL High 0.70-1.30 [facility] Eosinophil percentageOrdered By: Marquis Gomes on 12-17-2024 Eosinophils/100 WBC (Bld) 5.3 % High 0-5 [facility] Eosinophil percentage 5.3 % High 0-5 [facility] Erythrocyte distribution wid th (RBC) [Entitic vol]Ordered By: Marquis Gomes on 12-17-2024 Erythrocyte distribution width standard deviation 69.6 fl High 35.1-43.9 [facility] Erythrocyte distribution wid th (RBC) [Ratio]Ordered By: Marquis Gomes on 12-17-2024 Erythrocyte distribution width ratio 17.7 % High 11.6-14.6 [facility] Erythrocyte distribution wid th ratioOrdered By: Marquis Gomes on 12-17-2024 Erythrocyte distribution width (RBC) [Ratio] 17.7 % High 11.6-14.6 [facility] Erythrocyte distribution wid th standard deviationOrdered By: Marquis Gomes on 12-17-2024 Erythrocyte distribution width (RBC) [Ratio] 69.6 fl High 35.1-43.9 [facility] Estimated glomerular filtrat ion rate (GFR) AmericanOrdered By: Marquis Gomes on 12-17-2024 Estimated glomerular filtration rate (GFR) 11 mL/min Low >60 [facility] Estimation of creatinine omkar aranceOrdered By: Marquis Gomes on 12-17-2024 Estimation of creatinine clearance 8.97 ml/min [facility] Glomerular filtration rate ( GFR) estimationOrdered By: Marquis Gomes on 12-17-2024 GFR/1.73 sq M.predicted among non-blacks MDRD (S/P/Bld) [Vol rate/Area] 9 mL/min/{1.73_m2} Low >60 [facility] Glomerular filtration rate (GFR) estimation 9 mL/min Low >60 [facility] Glucose measurementOrdered B y: Marquis Gomes on 12-17-2024 Glucose [Mass/Vol] 86 mg/dL 74-106 [facility] Glucose measurement 86 mg/dL 74-106 [facility] Hematocrit Auto (Bld) [Volum e fraction]Ordered By: Marquis Gomes on 12-17-2024 Hematocrit (Bld) [Volume fraction] 34.6 % Low 40-54 [facility] Automated blood hematocrit (percentage) 34.6 % Low 40-54 [facility] Hemoglobin measurementOrdere d By: Marquis Gomes on 12-17-2024 Hemoglobin (Bld) [Mass/Vol] 11.4 g/dL Low 13.0-16.5 [facility] Hemoglobin measurement 11.4 g/dL Low 13.0-16.5 [facility] Immature granulocytes/100 WB C Auto (Bld)Ordered By: Marquis Gomes on 12-17-2024 Immature granulocytes/100 WBC (Bld) 0.500 % 0.0-0.9 [facility] Automated immature granulocyte percentage 0.500 % 0.0-0.9 [facility] International normalized rat io (INR) calculationOrdered By: Marquis Gomes on 12-17-2024 International normalized ratio (INR) calculation 2.0 [facility] Lymphocytes Auto (Unsp spec) [#/Vol]Ordered By: Marquis Gomes on 12-17-2024 Absolute lymphocyte count 1.79 X10^3/uL 0.83-4.51 [facility] Lymphocytes/100 WBC Auto (Un sp spec)Ordered By: Marquis Gomes on 12-17-2024 Automated lymphocyte count as percentage of total leukocytes 19.3 % 19-41 [facility] MCV (RBC) [Entitic vol]Order ed By: Marquis Gomes on 12-17-2024 MCV (mean corpuscular volume) determination 105.8 fL High 80-94 [facility] MCV (mean corpuscular volume ) determinationOrdered By: Marquis Gomes on 12-17-2024 MCV (RBC) [Entitic vol] 105.8 fL High 80-94 [facility] Magnesium measurementOrdered By: Marquis Gomes on 12-17-2024 Magnesium [Mass/Vol] 2.2 mg/dL 1.6-2.6 [facility] Magnesium measurement 2.2 mg/dL 1.6-2.6 [facility] Manual differential comment [place] (Bld) [Interp]Ordered By: Marquis Gomes on 12-17-2024 Blood manual differential comment interpretation (narrative result) SCANNED [facility] Mean corpuscular hemoglobin (MCH) determinationOrdered By: Marquis Gomes on 12-17-2024 MCH (RBC) [Entitic mass] 34.9 pg High 27.0-32.0 [facility] Mean corpuscular hemoglobin (MCH) determination 34.9 pg High 27.0-32.0 [facility] Mean corpuscular hemoglobin concentration (MCHC) determinationOrdered By: Marquis Gomes on 12-17-2024 Mean corpuscular hemoglobin concentration (MCHC) determination 32.9 g/dL 32-36 [facility] Mean platelet volume determi nationOrdered By: Marquis Gomes on 12-17-2024 Mean platelet volume determination 9.7 fl 6.2-12.0 [facility] Monocyte percentageOrdered B y: Marquis Gomes on 12-17-2024 Monocytes/100 WBC (Bld) 11.0 % High 0-[address] [facility] Monocyte percentage 11.0 % High 0-10 [facility] Neutrophil percentageOrdered By: Marquis Gomes on 12-17-2024 Neutrophils/100 WBC (Bld) 63.1 % 47-70 [facility] Neutrophil percentage 63.1 % 47-70 [facility] No Panel InformationOrdered By: Marquis Gomes on 12-17-2024 2+ [facility] Nucleated red blood cell per centageOrdered By: Marquis Gomes on 12-17-2024 Nucleated red blood cell percentage 0 % 0-5 [facility] Phosphorus measurementOrdere d By: Marquis Gomes on 12-17-2024 Phosphorus measurement 3.6 mg/dL 2.5-4.9 [facility] Platelet countOrdered By: Anshu Gomes on 12-17-2024 Platelets (Bld) [#/Vol] 218 10*3/uL 150-450 [facility] Platelet count 218 K/mm3 150-450 [facility] Platelet estimateOrdered By: Marquis Gomes on 12-17-2024 Platelets LM Ql (Bld) ADEQUATE ADEQ [facility] Platelets LM Ql (Bld)Ordered By: Marquis Gomes on 12-17-2024 Platelet estimate ADEQUATE [facility] Potassium measurementOrdered By: Marquis Gomes on 12-17-2024 Potassium [Moles/Vol] 5.8 mmol/L High 3.5-5.1 [facility] Potassium measurement 5.8 mmol/L High 3.5-5.1 [facility] Prothrombin timeOrdered By: Marquis Gomes on 12-17-2024 PT Coag (PPP) [Time] 22.8 s High 11.7-14.9 [facility] Prothrombin time 22.8 SECONDS High 11.7-14.9 [facility] RBC Auto (Bld) [#/Vol]Ordere d By: Marquis Gomes on 12-17-2024 RBC (Bld) [#/Vol] 3.27 10*6/uL Low 4.6-6.2 [facility] Automated blood erythrocyte count 3.27 M/mm3 Low 4.6-6.2 [facility] Serum anion gap measurementO rdered By: Marquis Gomes on 12-17-2024 Serum anion gap measurement 11 5-15 [facility] Serum or plasma calcium khalif urement (mass/volume)Ordered By: Marquis Gomes on 12-17-2024 Calcium [Mass/Vol] 8.6 mg/dL 8.5-10.1 [facility] Serum or plasma creatinine m easurement (mass/volume)Ordered By: Marquis Gomes on 12-17-2024 Creatinine [Mass/Vol] 6.65 mg/dL High 0.70-1.30 [facility] Serum or plasma urea nitroge n measurement (mass/volume)Ordered By: Marquis Gomes on 12-17-2024 Urea nitrogen [Mass/Vol] 42 mg/dL High 7-18 [facility] Sodium levelOrdered By: Sourav Gomes on 12-17-2024 Sodium [Moles/Vol] 129 mmol/L Low 136-145 [facility] Sodium level 129 mmol/L Low 136-145 [facility] Urea nitrogen [Mass/Vol]Orde red By: Marquis Gomes on 12-17-2024 Serum or plasma urea nitrogen measurement (mass/volume) 42 mg/dL High 7-18 [facility] White blood cell (WBC) count Ordered By: Marquis Gomes on 12-17-2024 WBC (Bld) [#/Vol] 9.3 10*3/uL 4.4-11.0 [facility] White blood cell (WBC) count 9.3 K/mm3 4.4-11.0 [facility] ALP [Catalytic activity/Vol] Ordered By: Diego Reaves on 12-16-2024 Serum or plasma alkaline phosphatase measurement 449 U/L High 45-117 [facility] ALT [Catalytic activity/Vol] Ordered By: Diego Reaves on 12-16-2024 Serum or plasma alanine aminotransferase (ALT) measurement 66 U/L High 16-61 [facility] Absolute lymphocyte countOrd ered By: Diego Reaves on 12-16-2024 Lymphocytes Auto (Unsp spec) [#/Vol] 1.65 10*3/uL 0.83-4.51 [facility] Absolute neutrophil countOrd ered By: Diego Reaves on 12-16-2024 Absolute neutrophil count 5.4 X10^3/uL 2.0-7.7 [facility] Activated partial thrombopla stin time (aPTT) in platelet poor plasma by coagulation aOrdered By: Diego Reaves on 12-16-2024 aPTT Coag (PPP) [Time] 88.1 s High 24.1-36.2 [facility] Albumin [Mass/Vol]Ordered By : Diego Reaves on 12-16-2024 Serum or plasma albumin measurement (mass/volume) 3.5 g/dL 3.2-5.0 [facility] Automated lymphocyte count a s percentage of total leukocytesOrdered By: Diego Reaves on 12-16-2024 Lymphocytes/100 WBC Auto (Unsp spec) 19.7 % 19-41 [facility] Basophil percentageOrdered B y: Diego Reaves on 12-16-2024 Basophils/100 WBC (Bld) 1.1 % High 0-[address] [facility] Basophil percentage 1.1 % High 0-1 [facility] Bilirubin directOrdered By: Diego Reaves on 12-16-2024 Bilirubin.direct [Mass/Vol] 0.44 mg/dL High 0.00-0.30 [facility] Bilirubin, totalOrdered By: Diego Reaves on 12-16-2024 Bilirubin [Mass/Vol] 0.80 mg/dL 0.20-1.00 [facility] Bilirubin, total 0.80 mg/dL 0.20-1.00 [facility] Bilirubin.direct [Mass/Vol]O rdered By: Diego Reaves on 12-16-2024 Bilirubin direct 0.44 mg/dL High 0.00-0.30 [facility] Blood urea nitrogen (BUN)/cr eatinine ratioOrdered By: Diego Reaves on 12-16-2024 Blood urea nitrogen (BUN)/creatinine ratio 6.7 RATIO Low 10-20 [facility] Calcium [Mass/Vol]Ordered By : Diego Reaves on 12-16-2024 Serum or plasma calcium measurement (mass/volume) 9.0 mg/dL 8.5-10.1 [facility] Carbon dioxide measurementOr dered By: Diego Reaves on 12-16-2024 CO2 [Moles/Vol] 29.0 mmol/L 21.0-32.0 [facility] Carbon dioxide measurement 29.0 mmol/L 21.0-32.0 [facility] Chloride measurementOrdered By: Diego Reaves on 12-16-2024 Chloride [Moles/Vol] 97 mmol/L Low 98-107 [facility] Chloride measurement 97 mmol/L Low 98-107 [facility] Creatinine [Mass/Vol]Ordered By: Diego Reaves on 12-16-2024 Serum or plasma creatinine measurement (mass/volume) 8.22 mg/dL High 0.70-1.30 [facility] Eosinophil percentageOrdered By: Diego Reaves on 12-16-2024 Eosinophils/100 WBC (Bld) 5.8 % High 0-5 [facility] Eosinophil percentage 5.8 % High 0-5 [facility] Erythrocyte distribution wid th (RBC) [Entitic vol]Ordered By: Diego Reaves on 12-16-2024 Erythrocyte distribution width standard deviation 67.9 fl High 35.1-43.9 [facility] Erythrocyte distribution wid th (RBC) [Ratio]Ordered By: Diego Reaves on 12-16-2024 Erythrocyte distribution width ratio 17.8 % High 11.6-14.6 [facility] Erythrocyte distribution wid th ratioOrdered By: Diego Reaves on 12-16-2024 Erythrocyte distribution width (RBC) [Ratio] 17.8 % High 11.6-14.6 [facility] Erythrocyte distribution wid th standard deviationOrdered By: Diego Reaves on 12-16-2024 Erythrocyte distribution width (RBC) [Ratio] 67.9 fl High 35.1-43.9 [facility] Erythrocyte morphology asses smentOrdered By: Diego Reaves on 12-16-2024 RBC morphology finding Nom (Bld) N CHROM NORMAL NORM C&C [facility] Estimated glomerular filtrat ion rate (GFR) AmericanOrdered By: Diego Reaves on 12-16-2024 Estimated glomerular filtration rate (GFR) 8 mL/min Low >60 [facility] Estimation of creatinine omkar aranceOrdered By: Diego Reaves on 12-16-2024 Estimation of creatinine clearance 7.26 ml/min [facility] Glomerular filtration rate ( GFR) estimationOrdered By: Diego Reaves on 12-16-2024 GFR/1.73 sq M.predicted among non-blacks MDRD (S/P/Bld) [Vol rate/Area] 7 mL/min/{1.73_m2} Low >60 [facility] Glomerular filtration rate (GFR) estimation 7 mL/min Low >60 [facility] Glucose measurementOrdered B y: Diego Reaves on 12-16-2024 Glucose [Mass/Vol] 101 mg/dL 74-106 [facility] Glucose measurement 101 mg/dL 74-106 [facility] Hematocrit Auto (Bld) [Volum e fraction]Ordered By: Diego Reaves on 12-16-2024 Hematocrit (Bld) [Volume fraction] 33.7 % Low 40-54 [facility] Automated blood hematocrit (percentage) 33.7 % Low 40-54 [facility] Hemoglobin measurementOrdere d By: Diego Reaves on 12-16-2024 Hemoglobin (Bld) [Mass/Vol] 11.1 g/dL Low 13.0-16.5 [facility] Hemoglobin measurement 11.1 g/dL Low 13.0-16.5 [facility] Immature granulocytes/100 WB C Auto (Bld)Ordered By: Diego Reaves on 12-16-2024 Immature granulocytes/100 WBC (Bld) 0.500 % 0.0-0.9 [facility] Automated immature granulocyte percentage 0.500 % 0.0-0.9 [facility] International normalized rat io (INR) calculationOrdered By: Diego Reaves on 12-16-2024 International normalized ratio (INR) calculation 1.9 [facility] Lymphocytes Auto (Unsp spec) [#/Vol]Ordered By: Diego Reaves on 12-16-2024 Absolute lymphocyte count 1.65 X10^3/uL 0.83-4.51 [facility] Lymphocytes/100 WBC Auto (Un sp spec)Ordered By: Diego Reaves on 12-16-2024 Automated lymphocyte count as percentage of total leukocytes 19.7 % 19-41 [facility] MCV (RBC) [Entitic vol]Order ed By: Diego Reaves on 12-16-2024 MCV (mean corpuscular volume) determination 104.7 fL High 80-94 [facility] MCV (mean corpuscular volume ) determinationOrdered By: Diego Reaves on 12-16-2024 MCV (RBC) [Entitic vol] 104.7 fL High 80-[address] [facility] Macrocytes detectionOrdered By: Diego Reaves on 12-16-2024 Macrocytes Ql (Bld) 1+ [facility] Macrocytes detection 1+ [facility] Mean corpuscular hemoglobin (MCH) determinationOrdered By: Diego Reaves on 12-16-2024 MCH (RBC) [Entitic mass] 34.5 pg High 27.0-32.0 [facility] Mean corpuscular hemoglobin (MCH) determination 34.5 pg High 27.0-32.0 [facility] Mean corpuscular hemoglobin concentration (MCHC) determinationOrdered By: Diego Reaves on 12-16-2024 Mean corpuscular hemoglobin concentration (MCHC) determination 32.9 g/dL 32-36 [facility] Mean platelet volume determi nationOrdered By: Diego Reaves on 12-16-2024 Mean platelet volume determination 9.0 fl 6.2-12.0 [facility] Monocyte percentageOrdered B y: Diego Reaves on 12-16-2024 Monocytes/100 WBC (Bld) 9.1 % 0-[address] [facility] Monocyte percentage 9.1 % 0-10 [facility] Neutrophil percentageOrdered By: Diego Reaves on 12-16-2024 Neutrophils/100 WBC (Bld) 63.8 % 47-70 [facility] Neutrophil percentage 63.8 % 47-70 [facility] No Panel InformationOrdered By: Diego Reaves on 12-16-2024 52 U/L High 15-37 [facility] Nucleated red blood cell per centageOrdered By: Diego Reaves on 12-16-2024 Nucleated red blood cell percentage 0 % 0-5 [facility] Platelet countOrdered By: Costa Reaves on 12-16-2024 Platelets (Bld) [#/Vol] 214 10*3/uL 150-450 [facility] Platelet count 214 K/mm3 150-450 [facility] Platelet estimateOrdered By: Diego Reaves on 12-16-2024 Platelets LM Ql (Bld) ADEQUATE ADEQ [facility] Platelets LM Ql (Bld)Ordered By: Diego Reaves on 12-16-2024 Platelet estimate ADEQUATE [facility] Potassium measurementOrdered By: Diego Reaves on 12-16-2024 Potassium [Moles/Vol] 4.3 mmol/L 3.5-5.1 [facility] Potassium measurement 4.3 mmol/L 3.5-5.1 [facility] Prothrombin timeOrdered By: Diego Reaves on 12-16-2024 PT Coag (PPP) [Time] 22.6 s High 11.7-14.9 [facility] Prothrombin time 22.6 SECONDS High 11.7-14.9 [facility] RBC Auto (Bld) [#/Vol]Ordere d By: Diego Reaves on 12-16-2024 RBC (Bld) [#/Vol] 3.22 10*6/uL Low 4.6-6.2 [facility] Automated blood erythrocyte count 3.22 M/mm3 Low 4.6-6.2 [facility] RBC morphology finding Nom ( Bld)Ordered By: Diego Reaves on 12-16-2024 Erythrocyte morphology assessment N CHROM NORMAL NORM C&C [facility] Serum anion gap measurementO rdered By: Deigo Reaves on 12-16-2024 Serum anion gap measurement 10 5-15 [facility] Serum globulin measurementOr dered By: Diego Reaves on 12-16-2024 Globulin (S) [Mass/Vol] 5.5 g/dL High 2.2-4.2 [facility] Serum globulin measurement 5.5 g/dL High 2.2-4.2 [facility] Serum or plasma alanine lorenzana otransferase (ALT) measurementOrdered By: Diego Reaves on 12-16-2024 ALT [Catalytic activity/Vol] 66 U/L High 16-61 [facility] Serum or plasma albumin khalif urement (mass/volume)Ordered By: Diego Reaves on 12-16-2024 Albumin [Mass/Vol] 3.5 g/dL 3.2-5.0 [facility] Serum or plasma alkaline guille sphatase measurementOrdered By: Diego Reaves on 12-16-2024 ALP [Catalytic activity/Vol] 449 U/L High 45-117 [facility] Serum or plasma calcium khalif urement (mass/volume)Ordered By: Diego Reaves on 12-16-2024 Calcium [Mass/Vol] 9.0 mg/dL 8.5-10.1 [facility] Serum or plasma creatinine m easurement (mass/volume)Ordered By: Diego Reaves on 12-16-2024 Creatinine [Mass/Vol] 8.22 mg/dL High 0.70-1.30 [facility] Serum or plasma urea nitroge n measurement (mass/volume)Ordered By: Diego Reaves on 12-16-2024 Urea nitrogen [Mass/Vol] 55 mg/dL High - [facility] Sodium levelOrdered By: Diego Reaves on 12-16-2024 Sodium [Moles/Vol] 135 mmol/L Low 136-145 [facility] Sodium level 135 mmol/L Low 136-145 [facility] Total proteinOrdered By: Cristian Reaves on 12-16-2024 Protein [Mass/Vol] 9.0 g/dL High 6.4-8.2 [facility] Total protein 9.0 g/dL High 6.4-8.2 [facility] Urea nitrogen [Mass/Vol]Orde red By: Diego Reaves on 12-16-2024 Serum or plasma urea nitrogen measurement (mass/volume) 55 mg/dL High -18 [facility] White blood cell (WBC) count Ordered By: Diego Reaves on 12-16-2024 WBC (Bld) [#/Vol] 8.4 10*3/uL 4.4-11.0 [facility] White blood cell (WBC) count 8.4 K/mm3 4.4-11.0 [facility] aPTT Coag (PPP) [Time]Ordere d By: Diego Reaves on 12-16-2024 Activated partial thromboplastin time (aPTT) in platelet poor plasma by coagulation a 88.1 Seconds High 24.1-36.2 [facility] No Panel Informationon 12-15 2.5 [facility] No Panel Informationon 12-08 2.5 [facility] No Panel Informationon 12-03 2.5 [facility] No Panel Informationon 12-01 4.5 High [facility] ALP [Catalytic activity/Vol] Ordered By: Timmy Miranda on 11-25-2024 Serum or plasma alkaline phosphatase measurement 397 U/L High 45-117 [facility] ALT [Catalytic activity/Vol] Ordered By: Timmy Miranda on 11-25-2024 Serum or plasma alanine aminotransferase (ALT) measurement 83 U/L High 16-61 [facility] Albumin Elph [Mass/Vol]Order ed By: Timmy Miranda on 11-25-2024 Serum or plasma albumin measurement by electrophoresis (mass/volume) 4.1 g/dL 2.9-4.4 [facility] Albumin [Mass/Vol]Ordered By : Timmy Miranda on 11-25-2024 Serum or plasma albumin measurement (mass/volume) 3.6 g/dL 3.2-5.0 [facility] Albumin to globulin ratioOrd ered By: Timmy Miranda on 11-25-2024 Albumin to globulin ratio 0.6 RATIO Low 0.9-2.4 [facility] Alpha 1 globulin Elph [Mass/ Vol]Ordered By: Timmy Miranda on 11-25-2024 Serum or plasma alpha 1 globulin measurement by electrophoresis (mass/volume) 0.4 g/dL 0.0-0.4 [facility] Serum or plasma alpha 1 globulin measurement by electrophoresis (mass/volume) 0.8 g/dL 0.4-1.0 [facility] Beta globulin Elph [Mass/Vol ]Ordered By: Timmy Miranda on 11-25-2024 Serum or plasma beta globulin measurement by electrophoresis (mass/volume) 1.3 g/dL 0.7-1.3 [facility] Bilirubin, totalOrdered By: Timmy Miranda on 11-25-2024 Bilirubin, total 1.00 mg/dL 0.20-1.00 [facility] Blood urea nitrogen (BUN)/cr eatinine ratioOrdered By: Timmy Miranda on 11-25-2024 Blood urea nitrogen (BUN)/creatinine ratio 7.0 RATIO Low 10-20 [facility] Calcium [Mass/Vol]Ordered By : Timmy Miranda on 11-25-2024 Serum or plasma calcium measurement (mass/volume) 9.4 mg/dL 8.5-10.1 [facility] Carbon dioxide measurementOr dered By: Timmy Miranda on 11-25-2024 Carbon dioxide measurement 28.0 mmol/L 21.0-32.0 [facility] Chloride measurementOrdered By: Timmy Miranda on 11-25-2024 Chloride measurement 94 mmol/L Low 98-107 [facility] Creatinine [Mass/Vol]Ordered By: Timmy Miranda on 11-25-2024 Serum or plasma creatinine measurement (mass/volume) 6.61 mg/dL High 0.70-1.30 [facility] Estimated glomerular filtrat ion rate (GFR) AmericanOrdered By: Timmy Miranda on 11-25-2024 Estimated glomerular filtration rate (GFR) 11 mL/min Low >60 [facility] Gamma globulin Elph [Mass/Vo l]Ordered By: Timmy Miranad on 11-25-2024 Serum or plasma gamma globulin measurement by electrophoresis (mass/volume) 2.2 g/dL High 0.4-1.8 [facility] Globulin (S) [Mass/Vol]Order ed By: Timmy Miranda on 11-25-2024 Serum globulin measurement (mass/volume) 4.7 g/dL High 2.2-3.9 [facility] Glomerular filtration rate ( GFR) estimationOrdered By: Timmy Miranda on 11-25-2024 Glomerular filtration rate (GFR) estimation 9 mL/min Low >60 [facility] Glucose measurementOrdered B y: Timmy Miranda on 11-25-2024 Glucose measurement 107 mg/dL High 74-106 [facility] IgA [Mass/Vol]Ordered By: Ra john Miranda on 11-25-2024 Serum or plasma IgA measurement (mass/volume) 183 mg/dL 61-437 [facility] IgG [Mass/Vol]Ordered By: Ra john Miranda on 11-25-2024 Serum or plasma IgG measurement (mass/volume) 1583 mg/dL 603-1613 [facility] Immunoglobulin M measurement Ordered By: Timmy Miranda on 11-25-2024 Immunoglobulin M measurement 982 mg/dL High 15-143 [facility] No Panel InformationOrdered By: Timmy Miranda on 11-25-2024 82 U/L High 15-37 [facility] Potassium measurementOrdered By: Timmy Miranda on 11-25-2024 Potassium measurement 4.2 mmol/L 3.5-5.1 [facility] Protein Fractions Immunofixa tion [place] [Interp]Ordered By: Timmy Miranda on 11-25-2024 Interpretation of serum or plasma protein pattern by immunofixation (narrative result Not Observed g/dL Not Observed [facility] Protein [Mass/Vol]Ordered By : Timmy Miranda on 11-25-2024 Serum or plasma protein measurement (mass/volume) 8.8 g/dL High 6.0-8.5 [facility] Serum albumin/globulin ratio Ordered By: Timmy Miranda on 11-25-2024 Serum albumin/globulin ratio 0.9 0.7-1.7 [facility] Serum anion gap measurementO rdered By: Timmy Miranda on 11-25-2024 Serum anion gap measurement 10 5-15 [facility] Serum or plasma immunoelectr ophoresis interpretation (nominal result)Ordered By: Timmy Miranda on 11-25-2024 Serum or plasma immunoelectrophoresis interpretation (nominal result) Comment . [facility] Sodium levelOrdered By: Berenice Miranda on 11-25-2024 Sodium level 131 mmol/L Low 136-145 [facility] Total proteinOrdered By: Andres Miranda on 11-25-2024 Total protein 9.8 g/dL High 6.4-8.2 [facility] Urea nitrogen [Mass/Vol]Orde red By: Timmy Miranda on 11-25-2024 Serum or plasma urea nitrogen measurement (mass/volume) 46 mg/dL High 7-18 [facility] Venous blood ammonia measure mentOrdered By: Timmy Miranda on 11-25-2024 Venous blood ammonia measurement 74.0 umol/L High 11-32 [facility] No Panel Informationon 11-24 3.3 [facility] No Panel Informationon 11-17 3.6 High [facility] No Panel Informationon 11-03 2.7 [facility] No Panel Informationon 10-27 3.1 [facility] AFP TUMOR MARKERon AFP Tumor Marker 2.6 ng/mL Normal <8.1 [facility] Comment on above: Result Comment: This test was performed on the [email or web address] Immunoassay platform by [employer] which is a two-site sandwich chemiluminescent immunoassay. It is important to note that assays using different manufacturers and/or methods may not be comparable. Performed By: #### X M #### [facility] (DEFAULT) [address] [place] [address] CBC AND ELECTRONIC DIFFon Basophils (Bld) [#/Vol] 0.07 10*3/uL Normal 0.00-0.09 [facility] Comment on above: Performed By: #### X M #### [facility] (DEFAULT) [address] [place] [address] 52749 Basophils/100 WBC (Bld) 0.7 % Normal [facility] Comment on above: Performed By: #### X M #### [facility] (DEFAULT) [address] [place] [address] 98990 DIFF STATUS Electronic Differential Normal [facility] Comment on above: Performed By: #### X M #### [facility] (DEFAULT) [address] [place] [address] 19963 Eosinophils (Bld) [#/Vol] 0.45 10*3/uL Normal 0.00-0.48 [facility] Comment on above: Performed By: #### X M #### [facility] (DEFAULT) [address] [place] [address] 24179 Eosinophils/100 WBC (Bld) 4.5 % Normal [facility] Comment on above: Performed By: #### X M #### [facility] (DEFAULT) [address] [place] [address] 10824 Hematocrit (Bld) [Volume fraction] 36.5 % Low 39.6-48.8 [facility] Comment on above: Performed By: #### X M #### [facility] (DEFAULT) [address] [place] [address] 00111 Hemoglobin (Bld) [Mass/Vol] 11.5 g/dL Low 13.4-16.8 [facility] Comment on above: Performed By: #### X M #### [facility] (DEFAULT) [address] [place] [address] 22956 Immature Grans % 0.4 % Normal [facility] Comment on above: Performed By: #### X M #### [facility] (DEFAULT) [address] [place] [address] 41143 Immature Grans Absolute 0.04 K/uL Normal <=0.07 [facility] Comment on above: Performed By: #### X M #### [facility] (DEFAULT) [address] [place] [address] 50348 Lymphocytes (Bld) [#/Vol] 1.74 10*3/uL Normal 0.83-3.57 [facility] Comment on above: Performed By: #### X M #### [facility] (DEFAULT) [address] [place] [address] 90126 Lymphocytes/100 WBC (Bld) 17.6 % Normal [facility] Comment on above: Performed By: #### X M #### [facility] (DEFAULT) [address] [place] [address] 32271 MCV (RBC) [Entitic vol] 106.7 fL High 79.0-94.5 [facility] Comment on above: Performed By: #### X M #### [facility] (DEFAULT) [address] [place] [address] 59857 Mean Cell Hgb 33.6 pg High 26.1-33.3 [facility] Comment on above: Performed By: #### X M #### [facility] (DEFAULT) [address] [place] [address] 55525 Mean Cell Hgb Conc 31.5 g/dL Low 31.9-36.5 [facility] Comment on above: Performed By: #### X M #### [facility] (DEFAULT) [address] [place] [address] 23914 Monocytes (Bld) [#/Vol] 0.98 10*3/uL High 0.24-0.93 [facility] Comment on above: Performed By: #### X M #### [facility] (DEFAULT) [address] [place] [address] 74591 Monocytes/100 WBC (Bld) 9.9 % Normal [facility] Comment on above: Performed By: #### X M #### [facility] (DEFAULT) [address] [place] [address] 22860 Nucleated RBC 0.0 /100 WBC Normal <=0.2 [facility] Comment on above: Performed By: #### X M #### [facility] (DEFAULT) [address] [place] [address] 52468 Platelet mean volume (Bld) [Entitic vol] 11.2 fL Normal 8.7-12.3 [facility] Comment on above: Performed By: #### X M #### [facility] (DEFAULT) [address] [address] Platelets (Bld) [#/Vol] 180 10*3/uL Normal 146-337 [facility] Comment on above: Performed By: #### X M #### [facility] (DEFAULT) [address] [address] RBC (Bld) [#/Vol] 3.42 10*6/uL Low 4.38-5.83 [facility] Comment on above: Performed By: #### X M #### [facility] (DEFAULT) [address] [address] RBC Distribution 17.6 % High 10.9-14.3 [facility] Comment on above: Performed By: #### X M #### [facility] (DEFAULT) [address] [place] [address] 44406 Segs + Bands Auto 66.9 % Normal [facility] Comment on above: Performed By: #### X M #### [facility] (DEFAULT) [address] [address] Segs + Bands,Absolute Auto 6.63 K/uL High 1.57-6.19 [facility] Comment on above: Performed By: #### X M #### [facility] (DEFAULT) [address] [address] WBC (Bld) [#/Vol] 9.91 10*3/uL Normal 3.73-10.10 [facility] Comment on above: Performed By: #### X M #### [facility] (DEFAULT) [address] [place] [address] CHEM 6 (LYTES, BUN CREA)on 1 12-23-2023 Anion gap [Moles/Vol] 19 mmol/L High 7 - 17 mmol/L [facility] Chloride [Moles/Vol] 92 mmol/L Low 98 - 10 8 mmol/L [facility] CO2 [Moles/Vol] 31 mmol/L 21 - 31 mmol/L [facility] Creatinine [Mass/Vol] 7.96 mg/dL High 0.70 - 1.30 mg/dL [facility] eGFR, CKD-EPI, Male 7 Low - PINF [facility] Comment on above: Reported eGFR is bas ed on the CKD-EPI 2020 equation using creatinine, age, and sex. Potassium [Moles/Vol] 3.7 mmol/L 3.5 - 5.0 mmol/L [facility] Sodium [Moles/Vol] 138 mmol/L 135 - 145 mmol/L [facility] Urea nitrogen [Mass/Vol] 57 mg/dL High 7 - 25 mg/dL [facility] Urea nitrogen/Creatinine [Mass ratio] 7 mg/mg [facility] Anion gap [Moles/Vol] 19 mmol/L High 7-17 [facility] Comment on above: Performed By: #### S URGP #### [facility] (DEFAULT) [address] [place] [address] Chloride [Moles/Vol] 92 mmol/L Low 98-108 [facility] Comment on above: Performed By: #### S URGP #### [facility] (DEFAULT) [address] [place] [address] CO2 [Moles/Vol] 31 mmol/L Normal 21-31 [facility] Comment on above: Performed By: #### S URGP #### [facility] (DEFAULT) [address] [place] [address]193 Creatinine [Mass/Vol] 7.96 mg/dL High 0.70-1.30 [facility] Comment on above: Performed By: #### S URGP #### [facility] (DEFAULT) [address] [place] [address] 89965 GFR/1.73 sq M.predicted among non-blacks MDRD (S/P/Bld) [Vol rate/Area] 7 mL/min/{1.73_m2} Low >=60 [facility] Comment on above: Result Comment: Repo rted eGFR is based on the CKD-EPI 2020 equation using creatinine, age, and sex. Performed By: #### S URGP #### [facility] (DEFAULT) [address] [place] [address] 34276 Potassium [Moles/Vol] 3.7 mmol/L Normal 3.5-5.0 [facility] Comment on above: Performed By: #### S URGP #### [facility] (DEFAULT) [address] [place] [address] 88609 Sodium [Moles/Vol] 138 mmol/L Normal 135-145 [facility] Comment on above: Performed By: #### S URGP #### [facility] (DEFAULT) [address] [place] [address] 56350 Urea nitrogen [Mass/Vol] 57 mg/dL High 7-25 [facility] Comment on above: Performed By: #### S URGP #### [facility] (DEFAULT) [address] [place] [address] 41675 Urea nitrogen/Creatinine [Mass ratio] 7 mg/mg Normal [facility] Comment on above: Performed By: #### S URGP #### [facility] (DEFAULT) [address] [place] [address] 64643 HEPATIC FUNCTION PANELon Albumin [Mass/Vol] 4.4 g/dL 3.5 - 5.0 g/dL [facility] ALP [Catalytic activity/Vol] 410 U/L High 32 - 126 U/L [facility] ALT [Catalytic activity/Vol] 64 U/L High 10 - 52 U/L [facility] AST [Catalytic activity/Vol] 64 U/L High 10 - 39 U/L [facility] Bilirubin [Mass/Vol] 1.0 mg/dL NINF - 1.5 mg/dL [facility] Bilirubin.direct [Mass/Vol] 0.4 mg/dL High NINF - 0.3 mg/dL [facility] Protein [Mass/Vol] 9.0 g/dL High 6.4 - 8.3 g/dL [facility] Albumin [Mass/Vol] 4.4 g/dL Normal 3.5-5.0 [facility] Comment on above: Performed By: #### S URGP #### [facility] (DEFAULT) [address] [place] [address] ALP [Catalytic activity/Vol] 410 U/L High 32-126 [facility] Comment on above: Performed By: #### S URGP #### [facility] (DEFAULT) [address] [place] [address] 54000 ALT [Catalytic activity/Vol] 64 U/L High 10-52 [facility] Comment on above: Performed By: #### S URGP #### [facility] (DEFAULT) [address] [place] [address] 56230 AST [Catalytic activity/Vol] 64 U/L High 10-39 [facility] Comment on above: Performed By: #### S URGP #### [facility] (DEFAULT) [address] [place] [address] 11325 Bilirubin [Mass/Vol] 1.0 mg/dL Normal <1.5 [facility] Comment on above: Performed By: #### S URGP #### [facility] (DEFAULT) [address] [place] [address] 47888 Bilirubin.indirect [Mass/Vol] 0.4 mg/dL High <0.3 [facility] Comment on above: Performed By: #### S URGP #### [facility] (DEFAULT) [address] [address] Protein [Mass/Vol] 9.0 g/dL High 6.4-8.3 [facility] Comment on above: Performed By: #### S URGP #### [facility] (DEFAULT) [address] [place] [address] No Panel Informationon 10-22 Interpretation and review of laboratory results Abnormal [facility] PROTIME-INRon 10-22-2024 INR Coag (Bld) [Relative time] 2.1 {INR} High 0.9 - 1.1 [facility] Interpretation and review of laboratory results Abnormal [facility] PT Coag (PPP) [Time] 23.5 s High [facility] INR Coag (PPP) [Relative time] 2.1 {INR} High 0.9-1.1 [facility] Comment on above: Performed By: #### X M #### [facility] (DEFAULT) [address] [place] [address] 77369 PT Coag (PPP) [Time] 23.5 s High 11.9-14.2 [facility] Comment on above: Performed By: #### X M #### [facility] (DEFAULT) [address] [place] [address] 14479 No Panel Informationon 10-20 3.9 High [facility] Alanine aminotransferase (AL T) assayOrdered By: Karthikeyan Turner on 05-28-2024 ALT [Catalytic activity/Vol] 64 U/L High 16-61 [facility] Alkaline phosphataseOrdered By: Karthikeyan Turner on 05-28-2024 ALP [Catalytic activity/Vol] 359 U/L High 45-117 [facility] Bilirubin, totalOrdered By: Karthikeyan Turner on 05-28-2024 Bilirubin [Mass/Vol] 0.80 mg/dL 0.20-1.00 [facility] Carbon dioxide measurementOr dered By: Karthikeyan Turner on 05-28-2024 CO2 [Moles/Vol] 28.0 mmol/L 21.0-32.0 [facility] Chloride measurementOrdered By: Karthikeyan Turner on 05-28-2024 Chloride [Moles/Vol] 93 mmol/L Low 98-107 [facility] Glomerular filtration rate ( GFR) estimationOrdered By: Karthikeyan Turner on 05-28-2024 GFR/1.73 sq M.predicted among non-blacks MDRD (S/P/Bld) [Vol rate/Area] 7 mL/min/{1.73_m2} Low >60 [facility] Glucose measurementOrdered B y: Karthikeyan Turner on 05-28-2024 Glucose [Mass/Vol] 128 mg/dL High 74-106 [facility] No Panel InformationOrdered By: Karthikeyan Turner on 05-28-2024 RARE [facility] 63 U/L High 15-37 [facility] Potassium measurementOrdered By: Karthikeyan Turner on 05-28-2024 Potassium [Moles/Vol] 3.5 mmol/L 3.5-5.1 [facility] Serum albumin measurementOrd ered By: Karthikeyan Turner on 05-28-2024 Albumin [Mass/Vol] 3.4 g/dL 3.2-5.0 [facility] Serum globulin measurementOr dered By: Karthikeyan Turner on 05-28-2024 Globulin (S) [Mass/Vol] 5.8 g/dL High 2.2-4.2 [facility] Serum or plasma calcium khalif urement (mass/volume)Ordered By: Karthikeyan Turner on 05-28-2024 Calcium [Mass/Vol] 10.1 mg/dL 8.5-10.1 [facility] Serum or plasma creatinine m easurement (mass/volume)Ordered By: Karthikeyan Turner on 05-28-2024 Creatinine [Mass/Vol] 8.46 mg/dL High 0.70-1.30 [facility] Serum or plasma urea nitroge n measurement (mass/volume)Ordered By: Karthikeyan Turner on 05-28-2024 Urea nitrogen [Mass/Vol] 60 mg/dL High 7-18 [facility] Sodium levelOrdered By: Lebron Turner on 05-28-2024 Sodium [Moles/Vol] 133 mmol/L Low 136-145 [facility] Total proteinOrdered By: Lul Turner on 05-28-2024 Protein [Mass/Vol] 9.2 g/dL High 6.4-8.2 [facility] CBC AND ELECTRONIC DIFFon Basophils (Bld) [#/Vol] 0.09 10*3/uL 0.00 - 0.09 K/uL [facility] Basophils/100 WBC (Bld) 0.8 % [facility] Differential cell count method Nom (Bld) Electronic Differential [facility] Eosinophils (Bld) [#/Vol] 0.48 10*3/uL 0.00 - 0.48 K/uL [facility] Eosinophils/100 WBC (Bld) 4.3 % [facility] Erythrocyte distribution width (RBC) [Ratio] 17.2 % High 10.9 - 14.3 % [facility] Hematocrit (Bld) [Volume fraction] 38.7 % Low 39.6 - 48.8 % [facility] Hemoglobin (Bld) [Mass/Vol] 12.7 g/dL Low 13.4 - 16.8 g/dL [facility] Immature granulocytes (Bld) [#/Vol] 0.08 10*3/uL High NINF - 0.07 K/uL [facility] Immature granulocytes/100 WBC (Bld) 0.7 % [facility] Interpretation and review of laboratory results Abnormal [facility] Lymphocytes (Bld) [#/Vol] 2.40 10*3/uL 0.83 - 3.57 K/uL [facility] Lymphocytes/100 WBC (Bld) 21.7 % [facility] MCH (RBC) [Entitic mass] 34.9 pg High 26.1 - 33.[address] [facility] MCHC (RBC) [Mass/Vol] 32.8 g/dL 31.9 - 36.5 g/dL [facility] MCV (RBC) [Entitic vol] 106.3 fL High 79.0 - 94.[address] [facility] Comment on above: Results inconsistent with previous results Monocytes (Bld) [#/Vol] 1.24 10*3/uL High 0.24 - 0.93 K/uL [facility] Monocytes/100 WBC (Bld) 11.2 % [facility] Neutrophils (Bld) [#/Vol] 6.79 10*3/uL High 1.57 - 6.19 K/uL [facility] Nucleated RBC/100 WBC (Bld) [Ratio] 0.0 % [facility] Platelet mean volume (Bld) [Entitic vol] 9.3 fL 8.7 - 12.[address] [facility] Platelets (Bld) [#/Vol] 247 10*3/uL 146 - 337 K/uL [facility] RBC (Bld) [#/Vol] 3.64 10*6/uL Low [facility] Segmented neutrophils/100 WBC (Bld) 61.3 % [facility] WBC (Bld) [#/Vol] 11.08 10*3/uL High 3.73 - 10 .10 K/uL [facility] CHEM 7 (LYTES,BUN,CREA,GLUC) Ordered By: Jenni Espinal on 04-02-2024 Anion gap [Moles/Vol] 24 mmol/L High 7 - 17 mmol/L [facility] Chloride [Moles/Vol] 91 mmol/L Low 98 - 10 8 mmol/L [facility] CO2 [Moles/Vol] 25 mmol/L 21 - 31 mmol/L [facility] Creatinine [Mass/Vol] 7.94 mg/dL High 0.70 - 1.30 mg/dL [facility] eGFR, CKD-EPI, Male 7 Low - PINF [facility] Comment on above: Reported eGFR is bas ed on the CKD-EPI 2020 equation using creatinine, age, and sex. Glucose [Mass/Vol] 94 mg/dL 70 - 99 mg/dL [facility] Interpretation and review of laboratory results Abnormal [facility] Osmolality Calc [Osmolality] 300 [facility] Potassium [Moles/Vol] 4.0 mmol/L 3.5 - 5.0 mmol/L [facility] Sodium [Moles/Vol] 136 mmol/L 135 - 145 mmol/L [facility] Urea nitrogen [Mass/Vol] 54 mg/dL High 7 - 25 mg/dL [facility] Urea nitrogen/Creatinine [Mass ratio] 7 [facility],PTTon 04-02-2024 aPTT Coag (PPP) [Time] 56.0 s High [facility] INR Coag (Bld) [Relative time] 1.7 {INR} High 0.9 - 1.1 [facility] Interpretation and review of laboratory results Abnormal [facility] PT Coag (PPP) [Time] 19.9 s High [facility] US Heart limitedOrdered By: Jeff Grullon on 03-24-2024 Avg e' pk christie 0.10 m/s [facility] Work Phone: [phone] Avg E/e' ratio 12.35 [facility] Work Phone: [phone] Body surface area Derived from formula 1.[address] [facility] Work Phone: BP EF 49 % [facility] Work Phone: E wave decelartion time 295.09 msec O [facility] Work Phone: e' lateral pk christie 0.1095 m/s [facility] Work Phone: e' lateral pk christie 0.11 m/s [facility] Work Phone: e' septal pk chrsitie 0.0900 m/s [facility] Work Phone: e' septal pk christie 0.09 m/s [facility] [facility] [place] Work Phone: E/e' lateral ratio 11.14 [facility] Work Phone: E/e' septal ratio 13.56 [facility] Work Phone: EF SP 2CH 50 [facility] Work Phone: EF SP 4CH 49 [facility] Work Phone: EST RAP 3.00 mmHg [facility] Work Phone: EST RVSP 36 mmHg [facility] Work Phone: FS 32 % 28 - 44 [facility] IVC ostium 1.88 [facility] Work [facility]: IVS 1.08 cm [facility] Work Phone: LA area 4CH 22.62 cm2 [facility] Work Phone: LA ESV SP 4CH (MOD) [facility] Work Phone: LA size 5.[address] [facility] Work Phone: LEFT ATRIAL DIAMETER INDEX 2.67 cm/m2 [facility] Work Phone: LV EDV BP 110 mL [facility] Work Phone: LV EDV SP 2CH 113 mL [facility] Work Phone: LV EDV SP 4CH [facility]: LV ESV BP 56 mL [facility] Work Phone: LV ESV SP 2CH 57 mL [facility] Work Phone: LV ESV SP 4CH 53 [facility] LV mass 272.[address] [facility] Work Phone: LV Mass Index 144.2 g/m2 [facility] Work Phone: LV RWT 0.33 [facility] Work [facility]: LV stroke volume BP (ml) 54 [facility] Work [facility]: LV stroke volume index BP 28.57 mL/m2 [facility] Work Phone: LVIDD 6.[address] [facility] Work Phone: LVIDS 4.[address] [facility] Work Phone: LVOT area 3.[address] [facility] Work Phone: LVOT diameter 2.[address] [facility] Work Phone: MV pk E christie 1.22 m/s [facility] Work Phone: MV stenosis pressure 1/[address] [facility] Work Phone: MV valve area p 1/[address] [facility] Work Phone: [facility] ECHO LV BIPLANE SYSTOLIC VOLUME INDEX 29.63 mL/m2 [facility] Work Phone: [facility] ECHO LV BP DIASTOLIC VOLUME INDEX 58.20 mL/m2 [facility] Work Phone: PW 1.[address] [facility] Work Phone: RA vol index 4CH (MOD) 26.98 mL/m2 O [facility] Work Phone: Right atrium volume 4 chamber method [facility] disks [facility] RV S' 8.41 [facility] Work Phone: [phone] TR pk grad 33 mmHg [facility] Work Phone: [phone] TR pk christie 2.88 m/s [facility] Work Phone: [phone] [facility] Work Phone: Heart limited 4 Left Ventricle: Fede france size is [...] left ventricular wall motion is globally hypokinetic. [facility] Radiology Study observation (narrative) [facility] No Panel Informationon 12-24 INR International Normalized Ratio 2.7 [facility] No Panel Informationon 12-17 INR International Normalized Ratio 2.3 [facility] No Panel Informationon 12-10 INR International Normalized Ratio 2.6 [facility] AFP TUMOR MARKEROrdered By: Juan Carlos Calderon on 12-05-2023 AFP.tumor marker [Mass/Vol] ng/mL NINF - 8.1 ng/mL [facility] Comment on above: This test was perfor med on the [employer] IM Immunoassay platform by Siemens which is a two-site sandwich chemiluminescent immunoassay. It is important to note that assays using different manufacturers and/or methods may not be comparable. Interpretation and review of laboratory results Normal [facility] CHEM 6 (LYTES, BUN CREA)on 0 12-05-2023 Anion gap [Moles/Vol] 21 mmol/L High 7 - 17 mmol/L [facility] Chloride [Moles/Vol] 91 mmol/L Low 98 - 10 8 mmol/L [facility] CO2 [Moles/Vol] 28 mmol/L 21 - 31 mmol/L [facility] Creatinine [Mass/Vol] 8.10 mg/dL High 0.70 - 1.30 mg/dL [facility] eGFR, CKD-EPI, Male 6 Low - PINF [facility] Comment on above: Reported eGFR is bas ed on the CKD-EPI 2020 equation using creatinine, age, and sex. Potassium [Moles/Vol] 4.4 mmol/L 3.5 - 5.0 mmol/L [facility] Sodium [Moles/Vol] 136 mmol/L 135 - 145 mmol/L [facility] Urea nitrogen [Mass/Vol] 57 mg/dL High 7 - 25 mg/dL [facility] Urea nitrogen/Creatinine [Mass ratio] 7 mg/mg [facility] HEPATIC FUNCTION PANELon Albumin [Mass/Vol] 4.4 g/dL 3.5 - 5.0 g/dL [facility] ALP [Catalytic activity/Vol] 337 U/L High 32 - 126 U/L [facility] ALT [Catalytic activity/Vol] 56 U/L High 10 - 52 U/L [facility] AST [Catalytic activity/Vol] 63 U/L High 10 - 39 U/L [facility] Bilirubin [Mass/Vol] 1.0 mg/[facility]/dL [facility] Bilirubin.direct [Mass/Vol] 0.3 mg/dL High NINF - 0.3 mg/dL [facility] Protein [Mass/Vol] 9.3 g/dL High 6.4 - 8.3 g/dL [facility] No Panel Informationon 12-05 Interpretation and review of laboratory results Abnormal [facility] PROTIME-INRon 12-05-2023 INR Coag (Bld) [Relative time] 1.8 {INR} High 0.9 - 1.1 [facility] Interpretation and review of laboratory results Abnormal [facility] PT Coag (PPP) [Time] 20.8 s High [facility] No Panel Informationon 12-03 INR International Normalized Ratio 2.9 [facility] No Panel Informationon 11-26 INR International Normalized Ratio 3.2 [facility] No Panel Informationon 11-19 INR International Normalized Ratio 3.8 [facility] No Panel Informationon 11-12 INR International Normalized Ratio 2.7 [facility] No Panel Informationon 11-05 INR International Normalized Ratio 2.7 [facility] No Panel Informationon 10-29 INR International Normalized Ratio 3.1 [facility] No Panel Informationon 10-22 INR International Normalized Ratio 3.7 [facility] No Panel Informationon 10-15 INR International Normalized Ratio 3.1 [facility] No Panel Informationon 10-08 INR International Normalized Ratio 4.0 [facility] Laboratory - Chemistry and C hemistry - challengeOrdered By: Castro Ferrara on 10-03-2023 Cobalamin (Vitamin B12) [Mass/Vol] 905 pg/mL 211-911 [facility] Free T4 [Mass/Vol] 1.01 ng/dL 0.76-1.46 [facility] No Panel InformationOrdered By: Castro Ferrara on 10-03-2023 Thyroid Stimulating Hormone (TSH) 4.40 uIU/mL 0.358-3.74 [facility] No Panel Informationon 10-01 INR International Normalized Ratio 3.7 [facility] No Panel Informationon 09-24 INR International Normalized Ratio 2.2 [facility] No Panel Informationon 09-17 INR International Normalized Ratio 3.3 [facility] No Panel Informationon 09-10 INR International Normalized Ratio 2.9 [facility] No Panel Informationon 09-03 INR International Normalized Ratio 2.2 [facility] No Panel Informationon 08-27 INR International Normalized Ratio 4.3 [facility] No Panel Informationon 08-20 INR International Normalized Ratio 2.8 [facility] No Panel Informationon 08-13 INR International Normalized Ratio 2.5 [facility] No Panel Informationon 08-06 INR International Normalized Ratio 2.1 [facility] No Panel Informationon 07-30 INR International Normalized Ratio 2.9 [facility] No Panel Informationon 07-23 INR International Normalized Ratio 3.2 [facility] No Panel Informationon 07-16 INR International Normalized Ratio 2.3 [facility] Basophil percentageOrdered B y: Castro Ferrara on 07-11-2023 Ammonia (P) [Moles/Vol] 25.0 umol/L [facility] Bilirubin [Mass/Vol] 0.90 mg/dL 0.20-1.00 [facility] Comment on above: For patients on eltr ombopag therapy, use of Dimension [place] TBIL is not recommended. Protein [Mass/Vol] 7.9 g/dL 6.4-8.2 [facility] Direct bilirubinOrdered By: Castro Ferrara on 07-11-2023 Bilirubin.direct [Mass/Vol] 0.54 mg/dL 0.00-0.30 [facility] Laboratory - Chemistry and C hemistry - challengeOrdered By: Castro Ferrara on 07-11-2023 ALP [Catalytic activity/Vol] 572 U/L 45-117 [facility] ALT [Catalytic activity/Vol] 106 U/L 16-61 [facility] Globulin (S) [Mass/Vol] 5.2 g/dL 2.2-4.2 [facility] Serum or plasma albumin khalif urement (mass/volume)Ordered By: Castro Ferrara on 07-11-2023 Albumin [Mass/Vol] 2.7 g/dL 3.2-5.0 [facility] Thin prep Papanicolaou smear with manual screeningOrdered By: Castro Ferrara on 07-11-2023 Thin prep Papanicolaou smear with manual screening 99 U/L 15-37 [facility] No Panel Informationon 07-09 INR International Normalized Ratio 2.1 [facility] No Panel Informationon 07-02 INR International Normalized Ratio 2.7 [facility] No Panel Informationon 06-27 INR International Normalized Ratio 3.5 [facility] No Panel Informationon 06-25 INR International Normalized Ratio 4.8 [facility] No Panel Informationon 06-18 INR International Normalized Ratio 4.0 [facility] No Panel Informationon 06-15 INR International Normalized Ratio 3.3 [facility] INR in Blood by Coagulation assayOrdered By: Niels Flores on 06-11-2023 INR Coag (Bld) [Relative time] 1.8 {INR} [facility] Laboratory - CoagulationOrde red By: Niels Flores on 06-11-2023 PT Coag (PPP) [Time] 20.9 s 11.7-14.9 [facility] No Panel Informationon 06-08 INR International Normalized Ratio 2.5 [facility] No Panel Informationon 06-06 INR International Normalized Ratio 7.0 [facility] Absolute lymphocyte countOrd ered By: Karthikeyan Turner on 06-04-2023 Lymphocytes Auto (Unsp spec) [#/Vol] 1.59 10*3/uL 0.83-4.51 [facility] Albumin Elph [Mass/Vol]Order ed By: Timmy Miranda on 06-04-2023 Albumin [Mass/Vol] 3.6 g/dL 2.9-4.4 [facility] Basophil percentageOrdered B y: Timmy Miranda on 06-04-2023 Ammonia (P) [Moles/Vol] 26.0 umol/L 11-32 [facility] Basophil percentageOrdered B y: Karthikeyan Turner on 06-04-2023 Basophils/100 WBC (Bld) 0.5 % 0-1 [facility] Bilirubin [Mass/Vol] 0.80 mg/dL 0.20-1.00 [facility] Comment on above: For patients on eltr ombopag therapy, use of Dimension [place] TBIL is not recommended. Chloride [Moles/Vol] 97 mmol/L 98-107 [facility] Eosinophils/100 WBC (Bld) 1.2 % 0-5 [facility] Glucose [Mass/Vol] 183 mg/dL 74-106 [facility] Comment on above: Fasting Glucose resu lt greater than or equal to 126 mg/dL suggests DIABETES MELLITUS per A.D.A. criteria. LDH [Catalytic activity/Vol] 373 U/L 87-241 [facility] Neutrophils (Bld) [#/Vol] 12.0 10*3/uL 2.0-7.7 [facility] Neutrophils/100 WBC (Bld) 80.8 % 47-70 [facility] Potassium [Moles/Vol] 4.0 mmol/L 3.5-5.1 [facility] Protein [Mass/Vol] 9.6 g/dL 6.4-8.2 [facility] Sodium [Moles/Vol] 134 mmol/L 136-145 [facility] WBC (Bld) [#/Vol] 14.8 10*3/uL 4.4-11.0 [facility] Blood erythrocytes count (nu mber/volume)Ordered By: Karthikeyan Turner on 06-04-2023 RBC (Bld) [#/Vol] 3.30 10*6/uL 4.6-6.2 [facility] Blood hemoglobin measurement (mass/volume)Ordered By: Karthikeyan Turnre on 06-04-2023 Hemoglobin (Bld) [Mass/Vol] 10.6 g/dL 13.0-16.5 [facility] Blood lymphocytes/100 leukoc ytesOrdered By: Karthikeyan Turner on 06-04-2023 Lymphocytes/100 WBC (Bld) 10.7 % 19-41 [facility] Blood monocytes/100 leukocyt esOrdered By: Karthikeyan Turner on 06-04-2023 Monocytes/100 WBC (Bld) 5.5 % 0-[address] [facility] Blood platelet mean volumeOr dered By: Karthikeyan Turner on 06-04-2023 Platelet mean volume (Bld) [Entitic vol] 9.3 fL 6.2-12.0 [facility] Determination of erythrocyte mean corpuscular volume (MCV)Ordered By: Karthikeyan Turner on 06-04-2023 MCV (RBC) [Entitic vol] 100.6 fL 80-[address] [facility] Hematocrit Auto (Bld) [Volum e fraction]Ordered By: Karthikeyan Turner on 06-04-2023 Hematocrit (Bld) [Volume fraction] 33.2 % 40-54 [facility] Interpretation of serum or p lasma protein pattern by immunofixation (narrative resultOrdered By: Timmy Miranda on 06-04-2023 Protein Fractions Immunofixation [place] [Interp] See comment [facility] Comment on above: NOT OBSERVED Laboratory - Chemistry and C hemistry - challengeOrdered By: Karthikeyan Turner on 06-04-2023 ALP [Catalytic activity/Vol] 564 U/L 45-117 [facility] ALT [Catalytic activity/Vol] 119 U/L 16-61 [facility] CO2 [Moles/Vol] 28.0 mmol/L 21.0-32.0 [facility] Urea nitrogen/Creatinine [Mass ratio] 6.2 mg/mg 10-20 [facility] Laboratory - Hematology and Cell countsOrdered By: Karthikeyan Turner on 06-04-2023 Erythrocyte distribution width (RBC) [Entitic vol] 62.4 fL 35.1-43.9 [facility] Erythrocyte distribution width (RBC) [Ratio] 17.2 % 11.6-14.6 [facility] Immature granulocytes/100 WBC (Bld) 1.300 % 0.0-0.9 [facility] Comment on above: IG% - Immature Granu locytes (promyelocytes, myelocytes and metamyelocytes) > 1% indicates that a LEFT SHIFT is Present. MCH (RBC) [Entitic mass] 32.1 pg 27.0-32.0 [facility] Nucleated RBC/100 WBC (Bld) [Ratio] 0 % 0-5 [facility] MCHC Auto (RBC) [Mass/Vol]Or dered By: Karthikeyan Turner on 06-04-2023 MCHC (RBC) [Mass/Vol] 31.9 g/dL 32-36 [facility] No Panel InformationOrdered By: Timmy Miranda on 06-04-2023 Addendum Document Comment . [facility] Comment on above: Protein electrophore sis scan will follow via computer,mail, or shipyard laborer delivery.Performed at: [address] [id number] Director: Zen Joshi PhD, Phone: [phone] No Panel InformationOrdered By: Karthikeyan Turner on 06-04-2023 Estimated Creatinine Clearance Calc 7.94 ml/min [facility] Estimated GFR (MDRD) Amer 9 mL/min >60 [facility] Comment on above: GFR Calc Estimated GFR (MDRD) Non-Af Amer 7 mL/min >60 [facility] Comment on above: Non- GFR Calc No Panel Informationon 06-04 INR International Normalized Ratio 1.6 [facility] Platelets bldOrdered By: Lul Turner on 06-04-2023 Platelets (Bld) [#/Vol] 277 10*3/uL 150-450 [facility] Serum [id number] measu rement by electrophoresisOrdered By: Timmy Miranda on 06-04-2023 Alpha 1 globulin Elph [Mass/Vol] 0.4 g/dL 0.0-0.4 [facility] Alpha 1 globulin Elph [Mass/Vol] 1.0 g/dL 0.4-1.0 [facility] Serum globulin measurement ( mass/volume)Ordered By: Timmy Miranda on 06-04-2023 Globulin (S) [Mass/Vol] 4.6 g/dL 2.2-3.9 [facility] Serum or plasma IgA measurem ent (mass/volume)Ordered By: Timmy Miranda on 06-04-2023 IgA [Mass/Vol] 164 mg/dL 61-437 [facility] Serum or plasma IgG measurem ent (mass/volume)Ordered By: Timmy Miranda on 06-04-2023 IgG [Mass/Vol] 1594 mg/dL 603-1613 [facility] Serum or plasma IgM measurem ent (mass/volume)Ordered By: Timmy Miranda on 06-04-2023 IgM [Mass/Vol] 795 mg/dL High 15-143 [facility] Comment on above: Results confirmed on dilution. Serum or plasma albumin khalif urement (mass/volume)Ordered By: Karthikeyan Turner on 06-04-2023 Albumin [Mass/Vol] 3.3 g/dL 3.2-5.0 [facility] Serum or plasma albumin/glob ulin mass ratioOrdered By: Karthikeyan Turner on 06-04-2023 Albumin/Globulin [Mass ratio] 0.5 {ratio} 0.9-2.4 [facility] Serum or plasma beta globuli n measurement by electrophoresis (mass/volume)Ordered By: Timmy Miranda on 06-04-2023 Beta globulin Elph [Mass/Vol] 1.1 g/dL 0.7-1.3 [facility] Serum or plasma calcium khalif urement (mass/volume)Ordered By: Karthikeyan Turner on 06-04-2023 Calcium [Mass/Vol] 10.5 mg/dL 8.5-10.1 [facility] Serum or plasma creatinine m easurement (mass/volume)Ordered By: Karthikeyan Turner on 06-04-2023 Creatinine [Mass/Vol] 7.63 mg/dL 0.70-1.30 [facility] Comment on above: Critical Result(s) C alled at: 14:29:52 06/04/2023 by: Shana Herman to [facility]. Results read back by same.The validity of the calculated GFR & GFRAA in patients over 70 years has not been determined. Clinical correlation is essential. Serum or plasma gamma globul in measurement by electrophoresis (mass/volume)Ordered By: Timmy Miranda on 06-04-2023 Gamma globulin Elph [Mass/Vol] 2.0 g/dL High 0.4-1.8 [facility] Serum or plasma immunoelectr ophoresis interpretation (nominal result)Ordered By: Timmy Miranda on 06-04-2023 Interpretation IEP [Interp] Comment . [facility] Comment on above: No monoclonality det ected. Serum or plasma urea nitroge n measurement (mass/volume)Ordered By: Karthikeyan Turner on 06-04-2023 Urea nitrogen [Mass/Vol] 47 mg/dL 7-18 [facility] Thin prep Papanicolaou smear with manual screeningOrdered By: Karthikeyan Turner on 06-04-2023 Thin prep Papanicolaou smear with manual screening 98 U/L 15-37 [facility] Thin prep Papanicolaou smear with manual screening 9 5-15 [facility] Thin prep Papanicolaou smear with manual screeningOrdered By: Timmy Miranda on 06-04-2023 Thin prep Papanicolaou smear with manual screening 0.8 0.7-1.7 [facility] Total protein bloodOrdered B y: Timmy Miranda on 06-04-2023 Protein [Mass/Vol] 8.2 g/dL 6.0-8.5 [facility] No Panel Informationon 05-28 INR International Normalized Ratio 3.2 [facility] No Panel Informationon 05-25 INR International Normalized Ratio 2.8 [facility] No Panel Informationon 05-23 INR International Normalized Ratio 4.0 [facility] No Panel Informationon 05-21 INR International Normalized Ratio 5.1 [facility] No Panel Informationon 05-14 INR International Normalized Ratio 2.3 [facility] No Panel Informationon 05-07 INR International Normalized Ratio 3.0 [facility] No Panel Informationon 04-30 INR International Normalized Ratio 4.4 [facility] No Panel Informationon 04-23 INR International Normalized Ratio 2.6 [facility] INR in Blood by Coagulation assayOrdered By: Niels Flores on 04-19-2023 INR Coag (Bld) [Relative time] 2.7 {INR} [facility] Laboratory - CoagulationOrde red By: Niels Flores on 04-19-2023 PT Coag (PPP) [Time] 29.4 s 11.7-14.9 [facility] No Panel Informationon 04-16 INR International Normalized Ratio 4.1 [facility] No Panel Informationon 04-09 INR International Normalized Ratio 2.7 [facility] No Panel Informationon 04-02 INR International Normalized Ratio 2.2 [facility] Absolute lymphocyte countOrd ered By: Dr. Palafox on 03-29-2023 Lymphocytes Auto (Unsp spec) [#/Vol] 1.60 10*3/uL 0.83-4.51 [facility] Basophil percentageOrdered B y: Dr. Palafox on 03-29-2023 Basophil percentage 106 mg/dL 74-106 [facility] Basophil percentage 139 mmol/L 136-145 [facility] Basophil percentage 4.3 mmol/L 3.5-5.1 [facility] Basophil percentage 99 mmol/L 98-107 [facility] Basophils (Bld) [#/Vol] 9.9 10*3/uL 4.4-11.0 [facility] Basophils (Bld) [#/Vol] 6.5 10*3/uL 2.0-7.7 [facility] Basophils/100 WBC (Bld) 66.0 % 47-[address] [facility] Basophils/100 WBC (Bld) 5.5 % 0-[address] [facility] Basophils/100 WBC (Bld) 0.7 % 0-[address] [facility] Basophil percentageOrdered B y: Matt Palafox on 03-29-2023 Chloride [Moles/Vol] 99 mmol/L 98-107 [facility] Eosinophils/100 WBC (Bld) 5.5 % 0-5 [facility] Glucose [Mass/Vol] 106 mg/dL 74-106 [facility] Comment on above: Fasting Glucose resu lt from 100 to 125 mg/dL suggests IMPAIRED HOMEOSTASIS per A.D.A. criteria. Neutrophils (Bld) [#/Vol] 6.5 10*3/uL 2.0-7.7 [facility] Neutrophils/100 WBC (Bld) 66.0 % 47-70 [facility] Potassium [Moles/Vol] 4.3 mmol/L 3.5-5.1 [facility] Sodium [Moles/Vol] 139 mmol/L 136-145 [facility] WBC (Bld) [#/Vol] 9.9 10*3/uL 4.4-11.0 [facility] Basophil percentageOrdered B y: Dr. Wen on 03-29-2023 Basophil percentage 108 mg/dL 74-106 [facility] Basophil percentage 137 mmol/L 136-145 [facility] Basophil percentage 4.6 mmol/L 3.5-5.1 [facility] Basophil percentage 98 mmol/L 98-107 [facility] Basophils (Bld) [#/Vol] 10.5 10*3/uL 4.4-11.0 [facility] Chloride [Moles/Vol] 98 mmol/L 98-107 [facility] Glucose [Mass/Vol] 108 mg/dL 74-106 [facility] Comment on above: Fasting Glucose resu lt from 100 to 125 mg/dL suggests IMPAIRED HOMEOSTASIS per A.D.A. criteria. Potassium [Moles/Vol] 4.6 mmol/L 3.5-5.1 [facility] Sodium [Moles/Vol] 137 mmol/L 136-145 [facility] WBC (Bld) [#/Vol] 10.5 10*3/uL 4.4-11.0 [facility] Blood erythrocytes count (nu mber/volume)Ordered By: Dr. Palafox on 03-29-2023 RBC (Bld) [#/Vol] 3.09 10*6/uL 4.6-6.2 [facility] Blood erythrocytes count (nu mber/volume)Ordered By: Dr. Wen on 03-29-2023 RBC (Bld) [#/Vol] 3.19 10*6/uL 4.6-6.2 [facility] Blood hemoglobin measurement (mass/volume)Ordered By: Dr. Palafox on 03-29-2023 Hemoglobin (Bld) [Mass/Vol] 9.8 g/dL 13.0-16.5 [facility] Blood hemoglobin measurement (mass/volume)Ordered By: Dr. Wen on 03-29-2023 Hemoglobin (Bld) [Mass/Vol] 10.3 g/dL 13.0-16.5 [facility] Blood lymphocytes/100 leukoc ytesOrdered By: Dr. Palafox on 03-29-2023 Lymphocytes/100 WBC (Bld) 16.2 % 19-41 [facility] Blood monocytes/100 leukocyt esOrdered By: Dr. Palafox on 03-29-2023 Monocytes/100 WBC (Bld) 11.1 % 0-[address] [facility] Blood platelet mean volumeOr dered By: Dr. Palafox on 03-29-2023 Platelet mean volume (Bld) [Entitic vol] 9.4 fL 6.2-12.0 [facility] Blood platelet mean volumeOr dered By: Dr. Wen on 03-29-2023 Platelet mean volume (Bld) [Entitic vol] 8.9 fL 6.2-12.0 [facility] Determination of erythrocyte mean corpuscular volume (MCV)Ordered By: Dr. Palafox on 03-29-2023 MCV (RBC) [Entitic vol] 100.6 fL 80-[address] [facility] Determination of erythrocyte mean corpuscular volume (MCV)Ordered By: Dr. Wen on 03-29-2023 MCV (RBC) [Entitic vol] 100.9 fL 80-[address] [facility] Hematocrit Auto (Bld) [Volum e fraction]Ordered By: Dr. Palafox on 03-29-2023 Hematocrit (Bld) [Volume fraction] 31.1 % 40-54 [facility] Hematocrit Auto (Bld) [Volum e fraction]Ordered By: Dr. Wen on 03-29-2023 Hematocrit (Bld) [Volume fraction] 32.2 % 40-54 [facility] INR in Blood by Coagulation assayOrdered By: Dr. Palafox on 03-29-2023 INR Coag (Bld) [Relative time] 2.6 {INR} [facility] INR in Blood by Coagulation assayOrdered By: Dr. Wen on 03-29-2023 INR Coag (Bld) [Relative time] 2.4 {INR} [facility] Laboratory - Chemistry and C hemistry - challengeOrdered By: Matt Palafox on 03-29-2023 CO2 [Moles/Vol] 27.0 mmol/L 21.0-32.0 [facility] Urea nitrogen/Creatinine [Mass ratio] 7.9 mg/mg 09-07 [facility] Laboratory - Chemistry and C hemistry - challengeOrdered By: Dr. Wen on 03-29-2023 CO2 [Moles/Vol] 28.0 mmol/L 21.0-32.0 [facility] Urea nitrogen/Creatinine [Mass ratio] 8.2 mg/mg 09-07 [facility] Laboratory - CoagulationOrde red By: Matt Palafox on 03-29-2023 PT Coag (PPP) [Time] 28.3 s 11.7-14.9 [facility] - CoagulationOrde red By: Dr. Wen on 03-29-2023 PT Coag (PPP) [Time] 26.4 s 11.7-14.9 [facility] - Hematology and Cell countsOrdered By: Matt Palafox on 03-29-2023 Erythrocyte distribution width (RBC) [Entitic vol] 58.2 fL 35.1-43.9 [facility] Erythrocyte distribution width (RBC) [Ratio] 15.8 % 11.6-14.6 [facility] Immature granulocytes/100 WBC (Bld) 0.500 % 0.0-0.9 [facility] Comment on above: IG% - Immature Granu locytes (promyelocytes, myelocytes and metamyelocytes) > 1% indicates that a LEFT SHIFT is Present. MCH (RBC) [Entitic mass] 31.7 pg 27.0-32.0 [facility] Nucleated RBC/100 WBC (Bld) [Ratio] 0 % 0-5 [facility] Laboratory - Hematology and Cell countsOrdered By: Dr. Wen on 03-29-2023 Erythrocyte distribution width (RBC) [Entitic vol] 57.5 fL 35.1-43.9 [facility] Erythrocyte distribution width (RBC) [Ratio] 15.6 % 11.6-14.6 [facility] MCH (RBC) [Entitic mass] 32.3 pg 27.0-32.0 [facility] MCHC Auto (RBC) [Mass/Vol]Or dered By: Dr. Palafox on 03-29-2023 MCHC (RBC) [Mass/Vol] 31.5 g/dL 32-36 [facility] MCHC Auto (RBC) [Mass/Vol]Or dered By: Dr. Wen on 03-29-2023 MCHC (RBC) [Mass/Vol] 32.0 g/dL 32-36 [facility] No Panel InformationOrdered By: Matt Palafox on 03-29-2023 Estimated Creatinine Clearance Calc 6.08 ml/min [facility] Estimated GFR (MDRD) Amer 7 mL/min >60 [facility] Comment on above: GFR Calc Estimated GFR (MDRD) Non-Af Amer 6 mL/min >60 [facility] Comment on above: Non- GFR Calc No Panel InformationOrdered By: Dr. Palafox on 03-29-2023 31.7 pg 27.0-32.0 [facility] 15.8 % 11.6-14.6 [facility] 58.2 fl 35.1-43.9 [facility] 0.500 % 0.0-0.9 [facility] 0 % 0-5 [facility] 28.3 SECONDS 11.7-14.9 [facility] 6 mL/min >60 [facility] 7 mL/min >60 [facility] 6.08 ml/min [facility] 7.9 RATIO 10-20 [facility] 27.0 mmol/L 21.0-32.0 [facility] No Panel InformationOrdered By: Dr. Wen on 03-29-2023 Estimated Creatinine Clearance Calc 6.47 ml/min [facility] Estimated GFR (MDRD) Amer 7 mL/min >60 [facility] Comment on above: GFR Calc Estimated GFR (MDRD) Non-Af Amer 6 mL/min >60 [facility] Comment on above: Non- GFR Calc 32.3 pg 27.0-32.0 [facility] 15.6 % 11.6-14.6 [facility] 57.5 fl 35.1-43.9 [facility] 26.4 SECONDS 11.7-14.9 [facility] 6 mL/min >60 [facility] 7 mL/min >60 [facility] 6.47 ml/min [facility] 8.2 RATIO 10-20 [facility] 28.0 mmol/L 21.0-32.0 [facility] Platelets bldOrdered By: Dr. Palafox on 03-29-2023 Platelets (Bld) [#/Vol] 247 10*3/uL 150-450 [facility] Platelets bldOrdered By: Dr. Wen on 03-29-2023 Platelets (Bld) [#/Vol] 245 10*3/uL 150-450 [facility] Serum or plasma calcium khalif urement (mass/volume)Ordered By: Dr. Palafox on 03-29-2023 Calcium [Mass/Vol] 9.5 mg/dL 8.5-10.1 [facility] Serum or plasma calcium khalif urement (mass/volume)Ordered By: Dr. Wen on 03-29-2023 Calcium [Mass/Vol] 9.7 mg/dL 8.5-10.1 [facility] Serum or plasma creatinine m easurement (mass/volume)Ordered By: Dr. Palafox on 03-29-2023 Creatinine [Mass/Vol] 9.97 mg/dL 0.70-1.30 [facility] Comment on above: Critical Result(s) C alled at: 18:13:03 03/29/2023 by: KAYLIN VICTORIA to ANN MARIE PATINO. Results read back by same.The validity of the calculated GFR & GFRAA in patients over 70 years has not been determined. Clinical correlation is essential. Serum or plasma creatinine m easurement (mass/volume)Ordered By: Dr. Wen on 03-29-2023 Creatinine [Mass/Vol] 9.37 mg/dL 0.70-1.30 [facility] Comment on above: Critical Result(s) C alled at: 09:29:52 03/29/2023 by: Shana Feldman. Results read back by same.The validity of the calculated GFR & GFRAA in patients over 70 years has not been determined. Clinical correlation is essential. Serum or plasma urea nitroge n measurement (mass/volume)Ordered By: Dr. Palafox on 03-29-2023 Urea nitrogen [Mass/Vol] 79 mg/dL 06-05 [facility] Serum or plasma urea nitroge n measurement (mass/volume)Ordered By: Dr. Wen on 03-29-2023 Urea nitrogen [Mass/Vol] 77 mg/dL 06-05 [facility] Thin prep Papanicolaou smear with manual screeningOrdered By: Dr. Palafox on 03-29-2023 Thin prep Papanicolaou smear with manual screening 13 04-02 [facility] Thin prep Papanicolaou smear with manual screeningOrdered By: Dr. Wen on 03-29-2023 Thin prep Papanicolaou smear with manual screening 11 04-02 [facility] CYSTOSCOPYon 03-28-2023 Darrel echavarria MD 03/28/2023 12:02 [...] time he is not interested in this. [facility] Radiology Study observation (narrative) [facility] No Panel Informationon 03-26 INR International Normalized Ratio 3.2 [facility] 3.2 [facility] No Panel Informationon 03-19 INR International Normalized Ratio 4.0 [facility] 4.0 [facility] No Panel Informationon 03-12 INR International Normalized Ratio 2.4 [facility] 2.4 [facility] No Panel Informationon 03-05 INR International Normalized Ratio 2.0 [facility] 2.0 [facility] No Panel Informationon 03-01 INR International Normalized Ratio 2.9 [facility] 2.9 [facility] No Panel Informationon 02-28 INR International Normalized Ratio 4.2 [facility] 4.2 [facility] No Panel Informationon 02-26 INR International Normalized Ratio 5.4 [facility] 5.4 [facility] No Panel Informationon 02-23 INR International Normalized Ratio 4.4 [facility] 4.4 [facility] INR in Blood by Coagulation assayOrdered By: Dr. Grullon on 02-02-2023 INR Coag (Bld) [Relative time] 2.2 {INR} [facility] Laboratory - CoagulationOrde red By: Dr. Grullon on 02-02-2023 PT Coag (PPP) [Time] 24.0 s 11.7-14.9 [facility] No Panel InformationOrdered By: Dr. Grullon on 02-02-2023 24.0 SECONDS 11.7-14.9 [facility] No Panel Informationon 01-31 INR International Normalized Ratio 4.6 [facility] 4.6 [facility] No Panel Informationon 01-29 INR International Normalized Ratio 5.7 [facility] 5.7 [facility] Absolute lymphocyte countOrd ered By: Dr. Frerara on 01-24-2023 Lymphocytes Auto (Unsp spec) [#/Vol] 1.08 10*3/uL 0.83-4.51 [facility] Basophil percentageOrdered B y: Dr. Ferrara on 01-24-2023 Basophils (Bld) [#/Vol] 7.2 10*3/uL 4.4-11.0 [facility] Basophils (Bld) [#/Vol] 5.0 10*3/uL 2.0-7.7 [facility] Basophils/100 WBC (Bld) 0.8 % 0-[address] [facility] Basophils/100 WBC (Bld) 68.6 % 47-[address] [facility] Basophils/100 WBC (Bld) 4.9 % 0-[address] [facility] Eosinophils/100 WBC (Bld) 4.9 % 0-5 [facility] Neutrophils (Bld) [#/Vol] 5.0 10*3/uL 2.0-7.7 [facility] Neutrophils/100 WBC (Bld) 68.6 % 47-70 [facility] WBC (Bld) [#/Vol] 7.2 10*3/uL 4.4-11.0 [facility] Blood erythrocytes count (nu mber/volume)Ordered By: Dr. Ferrara on 01-24-2023 RBC (Bld) [#/Vol] 3.56 10*6/uL 4.6-6.2 [facility] Blood hemoglobin measurement (mass/volume)Ordered By: Dr. Ferrara on 01-24-2023 Hemoglobin (Bld) [Mass/Vol] 11.2 g/dL 13.0-16.5 [facility] Blood lymphocytes/100 leukoc ytesOrdered By: Dr. Ferrara on 01-24-2023 Lymphocytes/100 WBC (Bld) 15.0 % 19-41 [facility] Blood monocytes/100 leukocyt esOrdered By: Dr. Ferrara on 01-24-2023 Monocytes/100 WBC (Bld) 10.0 % 0-[address] [facility] Blood platelet mean volumeOr dered By: Dr. Ferrara on 01-24-2023 Platelet mean volume (Bld) [Entitic vol] 10.2 fL 6.2-12.0 [facility] Determination of erythrocyte mean corpuscular volume (MCV)Ordered By: Dr. Ferrara on 01-24-2023 MCV (RBC) [Entitic vol] 100.0 fL 80-[address] [facility] Hematocrit Auto (Bld) [Volum e fraction]Ordered By: Dr. Ferrara on 01-24-2023 Hematocrit (Bld) [Volume fraction] 35.6 % 40-54 [facility] INR in Blood by Coagulation assayOrdered By: Dr. Ferrara on 01-24-2023 INR Coag (Bld) [Relative time] 2.5 {INR} [facility] - CoagulationOrde red By: Dr. Ferrara on 01-24-2023 PT Coag (PPP) [Time] 26.8 s 11.7-14.9 [facility] - Hematology and Cell countsOrdered By: Dr. Ferrara on 01-24-2023 Erythrocyte distribution width (RBC) [Entitic vol] 60.6 fL 35.1-43.9 [facility] Erythrocyte distribution width (RBC) [Ratio] 16.6 % 11.6-14.6 [facility] Immature granulocytes/100 WBC (Bld) 0.700 % 0.0-0.9 [facility] Comment on above: IG% - Immature Granu locytes (promyelocytes, myelocytes and metamyelocytes) > 1% indicates that a LEFT SHIFT is Present. MCH (RBC) [Entitic mass] 31.5 pg 27.0-32.0 [facility] Nucleated RBC/100 WBC (Bld) [Ratio] 0 % 0-5 [facility] MCHC Auto (RBC) [Mass/Vol]Or dered By: Dr. Ferrara on 01-24-2023 MCHC (RBC) [Mass/Vol] 31.5 g/dL 32-36 [facility] No Panel InformationOrdered By: Dr. Ferrara on 01-24-2023 31.5 pg 27.0-32.0 [facility] 16.6 % 11.6-14.6 [facility] 60.6 fl 35.1-43.9 [facility] 0.700 % 0.0-0.9 [facility] 0 % 0-5 [facility] 26.8 SECONDS 11.7-14.9 [facility] Platelets bldOrdered By: Dr. Ferrara on 01-24-2023 Platelets (Bld) [#/Vol] 127 10*3/uL 150-450 [facility] No Panel Informationon 01-22 INR International Normalized Ratio 1.6 [facility] 1.6 [facility] Absolute lymphocyte countOrd ered By: Dr. Centeno on 01-19-2023 Lymphocytes Auto (Unsp spec) [#/Vol] 1.13 10*3/uL 0.83-4.51 [facility] Basophil percentageOrdered B y: Dr. Centeno on 01-19-2023 Ammonia (P) [Moles/Vol] 38.0 umol/L 11-32 [facility] Basophil percentage 94 mg/dL 74-106 [facility] Basophil percentage 8.0 g/dL 6.4-8.2 [facility] Basophil percentage 1.20 mg/dL 0.20-1.00 [facility] Basophil percentage 133 mmol/L 136-145 [facility] Basophil percentage 4.6 mmol/L 3.5-5.1 [facility] Basophil percentage 98 mmol/L 98-107 [facility] Basophil percentage 38.0 umol/L 11-32 [facility] Basophils (Bld) [#/Vol] 8.4 10*3/uL 4.4-11.0 [facility] Basophils (Bld) [#/Vol] 5.8 10*3/uL 2.0-7.7 [facility] Basophils/100 WBC (Bld) 0.8 % 0-[address] [facility] Basophils/100 WBC (Bld) 68.9 % 47-[address] [facility] Basophils/100 WBC (Bld) 4.9 % 0-[address] [facility] Bilirubin [Mass/Vol] 1.20 mg/dL 0.20-1.00 [facility] Comment on above: For patients on eltr ombopag therapy, use of Dimension [place] TBIL is not recommended. Chloride [Moles/Vol] 98 mmol/L 98-107 [facility] Eosinophils/100 WBC (Bld) 4.9 % 0-5 [facility] Glucose [Mass/Vol] 94 mg/dL 74-106 [facility] Neutrophils (Bld) [#/Vol] 5.8 10*3/uL 2.0-7.7 [facility] Neutrophils/100 WBC (Bld) 68.9 % 47-70 [facility] Potassium [Moles/Vol] 4.6 mmol/L 3.5-5.1 [facility] Protein [Mass/Vol] 8.0 g/dL 6.4-8.2 [facility] Sodium [Moles/Vol] 133 mmol/L 136-145 [facility] WBC (Bld) [#/Vol] 8.4 10*3/uL 4.4-11.0 [facility] Blood erythrocytes count (nu mber/volume)Ordered By: Dr. Centeno on 01-19-2023 RBC (Bld) [#/Vol] 3.45 10*6/uL 4.6-6.2 [facility] Blood hemoglobin measurement (mass/volume)Ordered By: Dr. Centeno on 01-19-2023 Hemoglobin (Bld) [Mass/Vol] 11.2 g/dL 13.0-16.5 [facility] Blood lymphocytes/100 leukoc ytesOrdered By: Dr. Centeno on 01-19-2023 Lymphocytes/100 WBC (Bld) 13.4 % 19-41 [facility] Blood monocytes/100 leukocyt esOrdered By: Dr. Centeno on 01-19-2023 Monocytes/100 WBC (Bld) 11.5 % 0-[address] [facility] Blood platelet mean volumeOr dered By: Dr. Centeno on 01-19-2023 Platelet mean volume (Bld) [Entitic vol] 8.3 fL 6.2-12.0 [facility] Determination of erythrocyte mean corpuscular volume (MCV)Ordered By: Dr. Centeno on 01-19-2023 MCV (RBC) [Entitic vol] 95.4 fL 80-[address] [facility] Comment on above: Delta: 103.7 on Hematocrit Auto (Bld) [Volum e fraction]Ordered By: Dr. Centeno on 01-19-2023 Hematocrit (Bld) [Volume fraction] 32.9 % 40-54 [facility] INR in Blood by Coagulation assayOrdered By: Dr. Rothman on 01-19-2023 INR Coag (Bld) [Relative time] 3.1 {INR} [facility] Laboratory - Chemistry and C hemistry - challengeOrdered By: Dr. Centeno on 01-19-2023 ALP [Catalytic activity/Vol] 517 U/L 45-117 [facility] ALT [Catalytic activity/Vol] 68 U/L 16-61 [facility] CO2 [Moles/Vol] 26.0 mmol/L 21.0-32.0 [facility] Globulin (S) [Mass/Vol] 4.9 g/dL 2.2-4.[address] [facility] Urea nitrogen/Creatinine [Mass ratio] 6.9 mg/mg 10-20 [facility] Laboratory - CoagulationOrde red By: Dr. Rothman on 01-19-2023 PT Coag (PPP) [Time] 31.9 s 11.7-14.9 [facility] - Hematology and Cell countsOrdered By: Dr. Centeno on 01-19-2023 Erythrocyte distribution width (RBC) [Entitic vol] 58.4 fL 35.1-43.9 [facility] Erythrocyte distribution width (RBC) [Ratio] 17.0 % 11.6-14.6 [facility] Immature granulocytes/100 WBC (Bld) 0.500 % 0.0-0.9 [facility] Comment on above: IG% - Immature Granu locytes (promyelocytes, myelocytes and metamyelocytes) > 1% indicates that a LEFT SHIFT is Present. MCH (RBC) [Entitic mass] 32.5 pg 27.0-32.0 [facility] Nucleated RBC/100 WBC (Bld) [Ratio] 0 % 0-5 [facility] MCHC Auto (RBC) [Mass/Vol]Or dered By: Dr. Centeno on 01-19-2023 MCHC (RBC) [Mass/Vol] 34.0 g/dL 32-36 [facility] Comment on above: Delta: 30.6 on 01/17 No Panel InformationOrdered By: Dr. Centeno on 01-19-2023 Estimated Creatinine Clearance Calc 10.32 ml/min [facility] Estimated GFR (MDRD) Amer 12 mL/min >60 [facility] Comment on above: GFR Calc Estimated GFR (MDRD) Non-Af Amer 10 mL/min >60 [facility] Comment on above: Non- GFR Calc 32.5 pg 27.0-32.0 [facility] 17.0 % 11.6-14.6 [facility] 58.4 fl 35.1-43.9 [facility] 0.500 % 0.0-0.9 [facility] 0 % 0-5 [facility] 10 mL/min >60 [facility] 12 mL/min >60 [facility] 10.32 ml/min [facility] 6.9 RATIO 10-20 [facility] 4.9 g/dL 2.2-4.2 [facility] 517 U/L 45-117 [facility] 68 U/L 16-61 [facility] 26.0 mmol/L 21.0-32.0 [facility] No Panel InformationOrdered By: Dr. Rothman on 01-19-2023 31.9 SECONDS 11.7-14.9 [facility] Platelets bldOrdered By: Dr. Centeno on 01-19-2023 Platelets (Bld) [#/Vol] 183 10*3/uL 150-450 [facility] Serum or plasma albumin khalif urement (mass/volume)Ordered By: Dr. Centeno on 01-19-2023 Albumin [Mass/Vol] 3.1 g/dL 3.2-5.0 [facility] Serum or plasma albumin/glob ulin mass ratioOrdered By: Dr. Centeno on 01-19-2023 Albumin/Globulin [Mass ratio] 0.6 {ratio} 0.9-2.4 [facility] Serum or plasma calcium khalif urement (mass/volume)Ordered By: Dr. Centeno on 01-19-2023 Calcium [Mass/Vol] 8.9 mg/dL 8.5-10.1 [facility] Serum or plasma creatinine m easurement (mass/volume)Ordered By: Dr. Centeno on 01-19-2023 Creatinine [Mass/Vol] 5.96 mg/dL 0.70-1.30 [facility] Comment on above: The validity of the calculated GFR & GFRAA in patients over 70 years has not been determined. Clinical correlation is essential. Serum or plasma urea nitroge n measurement (mass/volume)Ordered By: Dr. Centeno on 01-19-2023 Urea nitrogen [Mass/Vol] 41 mg/dL 7-18 [facility] Thin prep Papanicolaou smear with manual screeningOrdered By: Dr. Centeno on 01-19-2023 Thin prep Papanicolaou smear with manual screening 73 U/L 15-37 [facility] Thin prep Papanicolaou smear with manual screening 9 5-15 [facility] Lower GI hemoglobin IA Ql (S tl)Ordered By: Dr. Rothman on 01-18-2023 Stool Occult Blood (SANDRA) Positive [facility] Stool gastrointestinal hemoglobin detection by immunologic method Positive [facility] Absolute lymphocyte countOrd ered By: Dr. Garrison on 01-17-2023 Lymphocytes Auto (Unsp spec) [#/Vol] 1.26 10*3/uL 0.83-4.51 [facility] Absolute lymphocyte countOrd ered By: Dr. Grullon on 03-01-2023 Lymphocytes Auto (Unsp spec) [#/Vol] 1.42 10*3/uL 0.83-4.51 [facility] Basophil percentageOrdered B y: Dr. Garrison on 01-17-2023 Basophils/100 WBC (Bld) 0.7 % 0-1 [facility] Bilirubin [Mass/Vol] 0.80 mg/dL 0.20-1.00 [facility] Comment on above: For patients on eltr ombopag therapy, use of Dimension [place] TBIL is not recommended. Chloride [Moles/Vol] 98 mmol/L 98-107 [facility] Eosinophils/100 WBC (Bld) 6.0 % 0-5 [facility] Glucose [Mass/Vol] 120 mg/dL 74-106 [facility] Comment on above: Fasting Glucose resu lt from 100 to 125 mg/dL suggests IMPAIRED HOMEOSTASIS per A.D.A. criteria. Neutrophils (Bld) [#/Vol] 4.3 10*3/uL 2.0-7.7 [facility] Neutrophils/100 WBC (Bld) 61.7 % 47-70 [facility] Potassium [Moles/Vol] 4.0 mmol/L 3.5-5.1 [facility] Protein [Mass/Vol] 8.0 g/dL 6.4-8.2 [facility] Sodium [Moles/Vol] 137 mmol/L 136-145 [facility] WBC (Bld) [#/Vol] 7.0 10*3/uL 4.4-11.0 [facility] Basophil percentageOrdered B y: Dr. Grullon on 01-17-2023 Basophil percentage 96 mg/dL 74-106 [facility] Basophil percentage 8.3 g/dL 6.4-8.2 [facility] Basophil percentage 0.80 mg/dL 0.20-1.00 [facility] Basophil percentage 135 mmol/L 136-145 [facility] Basophil percentage 4.1 mmol/L 3.5-5.1 [facility] Basophil percentage 96 mmol/L 98-107 [facility] Basophils (Bld) [#/Vol] 8.0 10*3/uL 4.4-11.0 [facility] Basophils (Bld) [#/Vol] 5.2 10*3/uL 2.0-7.7 [facility] Basophils/100 WBC (Bld) 0.5 % 0-[address] [facility] Basophils/100 WBC (Bld) 64.8 % 47-[address] [facility] Basophils/100 WBC (Bld) 5.9 % 0-[address] [facility] Bilirubin [Mass/Vol] 0.80 mg/dL 0.20-1.00 [facility] Comment on above: For patients on eltr ombopag therapy, use of Dimension [place] TBIL is not recommended. Chloride [Moles/Vol] 96 mmol/L 98-107 [facility] Eosinophils/100 WBC (Bld) 5.9 % 0-5 [facility] Glucose [Mass/Vol] 96 mg/dL 74-106 [facility] Neutrophils (Bld) [#/Vol] 5.2 10*3/uL 2.0-7.7 [facility] Neutrophils/100 WBC (Bld) 64.8 % 47-70 [facility] Potassium [Moles/Vol] 4.1 mmol/L 3.5-5.1 [facility] Protein [Mass/Vol] 8.3 g/dL 6.4-8.2 [facility] Sodium [Moles/Vol] 135 mmol/L 136-145 [facility] WBC (Bld) [#/Vol] 8.0 10*3/uL 4.4-11.0 [facility] Blood erythrocytes count (nu mber/volume)Ordered By: Dr. Garrison on 01-17-2023 RBC (Bld) [#/Vol] 2.14 10*6/uL 4.6-6.2 [facility] Blood erythrocytes count (nu mber/volume)Ordered By: Dr. Grullon on 01-17-2023 RBC (Bld) [#/Vol] 2.34 10*6/uL 4.6-6.2 [facility] Blood hemoglobin measurement (mass/volume)Ordered By: Dr. Garrison on 01-17-2023 Hemoglobin (Bld) [Mass/Vol] 6.8 g/dL 13.0-16.5 [facility] Blood hemoglobin measurement (mass/volume)Ordered By: Dr. Grullon on 01-17-2023 Hemoglobin (Bld) [Mass/Vol] 7.5 g/dL 13.0-16.5 [facility] Blood lymphocytes/100 leukoc ytesOrdered By: Dr. Garrison on 01-17-2023 Lymphocytes/100 WBC (Bld) 18.1 % 19-41 [facility] Blood lymphocytes/100 leukoc ytesOrdered By: Dr. Grullon on 01-17-2023 Lymphocytes/100 WBC (Bld) 17.7 % 19-41 [facility] Blood monocytes/100 leukocyt esOrdered By: Dr. Garrison on 01-17-2023 Monocytes/100 WBC (Bld) 12.9 % 0-[address] [facility] Blood monocytes/100 leukocyt esOrdered By: Dr. Grullon on 01-17-2023 Monocytes/100 WBC (Bld) 10.5 % 0-[address] [facility] Blood platelet mean volumeOr dered By: Dr. Garrison on 01-17-2023 Platelet mean volume (Bld) [Entitic vol] 9.0 fL 6.2-12.0 [facility] Blood platelet mean volumeOr dered By: Dr. Grullon on 01-17-2023 Platelet mean volume (Bld) [Entitic vol] 9.4 fL 6.2-12.0 [facility] Determination of erythrocyte mean corpuscular volume (MCV)Ordered By: Dr. Garrison on 01-17-2023 MCV (RBC) [Entitic vol] 103.7 fL 80-[address] [facility] Determination of erythrocyte mean corpuscular volume (MCV)Ordered By: Dr. Grullon on 01-17-2023 MCV (RBC) [Entitic vol] 101.7 fL 80-[address] [facility] Direct bilirubinOrdered By: Dr. Grullon on 01-17-2023 Bilirubin.direct [Mass/Vol] 0.39 mg/dL 0.00-0.30 [facility] Hematocrit Auto (Bld) [Volum e fraction]Ordered By: Dr. Garrison on 01-17-2023 Hematocrit (Bld) [Volume fraction] 22.2 % 40-54 [facility] Hematocrit Auto (Bld) [Volum e fraction]Ordered By: Dr. Grullon on 01-17-2023 Hematocrit (Bld) [Volume fraction] 23.8 % [facility] INR in Blood by Coagulation assayOrdered By: Dr. Garrison on 01-17-2023 INR Coag (Bld) [Relative time] 3.6 {INR} [facility] INR in Blood by Coagulation assayOrdered By: Dr. Grullon on 01-17-2023 INR Coag (Bld) [Relative time] 3.4 {INR} [facility] Laboratory - Chemistry and C hemistry - challengeOrdered By: Dr. Garrison on 01-17-2023 ALP [Catalytic activity/Vol] 481 U/L 45- [facility] ALT [Catalytic activity/Vol] 71 U/L [facility] CO2 [Moles/Vol] 30.0 mmol/L 21.0-32.0 [facility] Globulin (S) [Mass/Vol] 4.8 g/dL 2.2-4.[address] [facility] Urea nitrogen/Creatinine [Mass ratio] 8.7 mg/mg 09-07 [facility] Laboratory - Chemistry and C hemistry - challengeOrdered By: Dr. Grullon on 01-17-2023 ALP [Catalytic activity/Vol] 519 U/L 45 [facility] ALT [Catalytic activity/Vol] 74 U/L [facility] CO2 [Moles/Vol] 28.0 mmol/L 21.0-32.0 [facility] Globulin (S) [Mass/Vol] 5.1 g/dL 2.2-4.[address] [facility] Urea nitrogen/Creatinine [Mass ratio] 8.6 mg/mg 09-07 [facility] Laboratory - CoagulationOrde red By: Dr. Garrison on 01-17-2023 PT Coag (PPP) [Time] 35.8 s 11.7-14.9 [facility] - CoagulationOrde red By: Dr. Grullon on 01-17-2023 PT Coag (PPP) [Time] 33.8 s 11.7-14.9 [facility] Laboratory - Hematology and Cell countsOrdered By: Dr. Garrison on 01-17-2023 Erythrocyte distribution width (RBC) [Entitic vol] 62.4 fL 35.1-43.9 [facility] Erythrocyte distribution width (RBC) [Ratio] 16.6 % 11.6-14.6 [facility] Immature granulocytes/100 WBC (Bld) 0.600 % 0.0-0.9 [facility] Comment on above: IG% - Immature Granu locytes (promyelocytes, myelocytes and metamyelocytes) > 1% indicates that a LEFT SHIFT is Present. MCH (RBC) [Entitic mass] 31.8 pg 27.0-32.0 [facility] Nucleated RBC/100 WBC (Bld) [Ratio] 0 % 0-5 [facility] Laboratory - Hematology and Cell countsOrdered By: Dr. Grullon on 01-17-2023 Erythrocyte distribution width (RBC) [Entitic vol] 61.4 fL 35.1-43.9 [facility] Erythrocyte distribution width (RBC) [Ratio] 16.7 % 11.6-14.6 [facility] Immature granulocytes/100 WBC (Bld) 0.600 % 0.0-0.9 [facility] Comment on above: IG% - Immature Granu locytes (promyelocytes, myelocytes and metamyelocytes) > 1% indicates that a LEFT SHIFT is Present. MCH (RBC) [Entitic mass] 32.1 pg 27.0-32.0 [facility] Nucleated RBC/100 WBC (Bld) [Ratio] 0 % 0-5 [facility] Lower GI hemoglobin IA Ql (S tl)Ordered By: Karthikeyan Rothman on 01-17-2023 Stool Occult Blood (SANDRA) Positive [facility] MCHC Auto (RBC) [Mass/Vol]Or dered By: Dr. Garrison on 01-17-2023 MCHC (RBC) [Mass/Vol] 30.6 g/dL [facility] MCHC Auto (RBC) [Mass/Vol]Or dered By: Dr. Grullon on 01-17-2023 MCHC (RBC) [Mass/Vol] 31.5 g/dL [facility] No Panel InformationOrdered By: Dr. Garrison on 01-17-2023 Estimated Creatinine Clearance Calc 8.02 ml/min [facility] Estimated GFR (MDRD) Amer 9 mL/min >60 [facility] Comment on above: GFR Calc Estimated GFR (MDRD) Non-Af Amer 7 mL/min >60 [facility] Comment on above: Non- GFR Calc No Panel InformationOrdered By: Dr. Grullon on 01-17-2023 Estimated GFR (MDRD) Amer 10 mL/min >60 [facility] Comment on above: GFR Calc Estimated GFR (MDRD) Non-Af Amer 8 mL/min >60 [facility] Comment on above: Non- GFR Calc 32.1 pg 27.0-32.0 [facility] 16.7 % 11.6-14.6 [facility] 61.4 fl 35.1-43.9 [facility] 0.600 % 0.0-0.9 [facility] 0 % 0-5 [facility] 8 mL/min >60 [facility] 10 mL/min >60 [facility] 8.6 RATIO 10-20 [facility] 5.1 g/dL 2.2-4.2 [facility] 519 U/L 45-117 [facility] 74 U/L 16-61 [facility] 28.0 mmol/L 21.0-32.0 [facility] Platelets bldOrdered By: Dr. Garrison on 01-17-2023 Platelets (Bld) [#/Vol] 235 10*3/uL 150-450 [facility] Platelets bldOrdered By: Dr. Grullon on 01-17-2023 Platelets (Bld) [#/Vol] 239 10*3/uL 150-450 [facility] Serum or plasma albumin khalif urement (mass/volume)Ordered By: Dr. Garrison on 01-17-2023 Albumin [Mass/Vol] 3.2 g/dL 3.2-5.0 [facility] Serum or plasma albumin khalif urement (mass/volume)Ordered By: Dr. Grullon on 01-17-2023 Albumin [Mass/Vol] 3.2 g/dL 3.2-5.0 [facility] Serum or plasma albumin/glob ulin mass ratioOrdered By: Dr. Garrison on 01-17-2023 Albumin/Globulin [Mass ratio] 0.7 {ratio} 0.9-2.4 [facility] Serum or plasma [id number] protein tumor marker measurement (units/volume)Ordered By: Dr. Grullon on 01-17-2023 AFP.tumor marker Qn < 1.8 ng/mL 0.0-8.4 [facility] Comment on above: [facility] El ectrochemiluminescence Immunoassay(ECLIA)Values obtained with different assay methods or kits cannotbe used interchangeably. Results cannot be interpreted asabsolute evidence of the presence or absence of malignantdisease.This test is not interpretable in females.Performed at: [employer] [id number] Director: Zen Joshi PhD, Phone: [phone] Serum or plasma calcium khalif urement (mass/volume)Ordered By: Dr. Garrison on 01-17-2023 Calcium [Mass/Vol] 9.2 mg/dL 8.5-10.1 [facility] Serum or plasma calcium khalif urement (mass/volume)Ordered By: Dr. Grullon on 01-17-2023 Calcium [Mass/Vol] 9.6 mg/dL 8.5-10.1 [facility] Serum or plasma creatinine m easurement (mass/volume)Ordered By: Dr. Garrison on 01-17-2023 Creatinine [Mass/Vol] 7.67 mg/dL 0.70-1.30 [facility] Comment on above: Critical Result(s) C alled at: 18:40:59 01/17/2023 by: Gabriela Blackwell. Results read back by same.The validity of the calculated GFR & GFRAA in patients over 70 years has not been determined. Clinical correlation is essential. Serum or plasma creatinine m easurement (mass/volume)Ordered By: Dr. Grullon on 01-17-2023 Creatinine [Mass/Vol] 7.21 mg/dL 0.70-1.30 [facility] Comment on above: The validity of the calculated GFR & GFRAA in patients over 70 years has not been determined. Clinical correlation is essential. Serum or plasma urea nitroge n measurement (mass/volume)Ordered By: Dr. Garrison on 01-17-2023 Urea nitrogen [Mass/Vol] 67 mg/dL 06-05 [facility] Serum or plasma urea nitroge n measurement (mass/volume)Ordered By: Dr. Grullon on 01-17-2023 Urea nitrogen [Mass/Vol] 62 mg/dL 06-05 [facility] Thin prep Papanicolaou smear with manual screeningOrdered By: Dr. Garrison on 01-17-2023 Thin prep Papanicolaou smear with manual screening 72 U/L [facility] Thin prep Papanicolaou smear with manual screening 9 04-02 [facility] Thin prep Papanicolaou smear with manual screeningOrdered By: Dr. Grullon on 01-17-2023 Thin prep Papanicolaou smear with manual screening 64 U/L [facility] Thin prep Papanicolaou smear with manual screening 11 04-02 [facility] INR in Blood by Coagulation assayOrdered By: Dr. Grullon on 01-03-2023 INR Coag (Bld) [Relative time] 3.6 {INR} [facility] Laboratory - CoagulationOrde red By: Dr. Grullon on 01-03-2023 PT Coag (PPP) [Time] 35.7 s 11.7-14.9 [facility] No Panel InformationOrdered By: Dr. Grullon on 01-03-2023 35.7 SECONDS 11.7-14.9 [facility] Basophil percentageOrdered B y: Dr. Grullon on 12-06-2022 Basophil percentage TNP [facility] Comment on above: Test not performed Basophil percentage 8.4 g/dL 6.4-8.2 [facility] Basophil percentage 1.00 mg/dL 0.20-1.00 [facility] Bilirubin [Mass/Vol] 1.00 mg/dL 0.20-1.00 [facility] Comment on above: For patients on eltr ombopag therapy, use of Dimension [place] TBIL is not recommended. Protein [Mass/Vol] 8.4 g/dL 6.4-8.2 [facility] Direct bilirubinOrdered By: Dr. Grullon on 12-06-2022 Bilirubin.direct [Mass/Vol] 0.61 mg/dL 0.00-0.30 [facility] INR in Blood by Coagulation assayOrdered By: Dr. Grullon on 12-06-2022 INR Coag (Bld) [Relative time] 2.4 {INR} [facility] Laboratory - Chemistry and C hemistry - challengeOrdered By: Dr. Grullon on 12-06-2022 ALP [Catalytic activity/Vol] 557 U/L 45-117 [facility] ALT [Catalytic activity/Vol] 143 U/L 16-61 [facility] Globulin (S) [Mass/Vol] 5.3 g/dL 2.2-4.2 [facility] Laboratory - CoagulationOrde red By: Dr. Grullon on 12-06-2022 PT Coag (PPP) [Time] 25.6 s 11.7-14.9 [facility] No Panel InformationOrdered By: Dr. Grullon on 12-06-2022 Addendum Document Comment . [facility] Comment on above: The quantitative ran ge of this assay is 15 IU/mL to 100million IU/mL. Hepatitis A Antibody Total Positive Negative [facility] Hepatitis B Core IgM Antibody Negative Negative [facility] Comment on above: Performed at: - [address] [id number] Director: Kenny Akbar MD, Phone: [phone] at: - [facility] [id number] Director: Zen Joshi PhD, Phone: [phone] Hepatitis B Surface Antigen Non-Reactive Nonreactive [facility] Hepatitis C Antibody Non-Reactive Nonreactive [facility] Comment on above: Non Reactive: < 0.8 Equivocal: >/= 0.8 to < 1.0 Reactive: >/= 1.0The [facility] recommends that a reactive/equivocal HCV antibody result be followed up by the HCV Nucleic Acid Amplificationtest ([id number]) 25.6 SECONDS 11.7-14.9 [facility] 5.3 g/dL 2.2-4.2 [facility] 557 U/L 45-117 [facility] 143 U/L 16-61 [facility] Positive Negative [facility] Negative Negative [facility] Non-Reactive Nonreactive [facility] Serum or plasma albumin khalif urement (mass/volume)Ordered By: Dr. Grullon on 12-06-2022 Albumin [Mass/Vol] 3.1 g/dL 3.2-5.0 [facility] Serum or plasma hepatitis C virus RNA measurement by probe and target amplification mOrdered By: Dr. Grullon on 12-06-2022 HCV RNA RENETTA+probe Qn Not detected . [facility] Thin prep Papanicolaou smear with manual screeningOrdered By: Dr. Grullon on 12-06-2022 Thin prep Papanicolaou smear with manual screening 101 U/L 15-37 [facility] Albumin Elph [Mass/Vol]on Albumin [Mass/Vol] 3.6 g/dL 2.9-4.4 [facility] Basophil percentageOrdered B y: Dr. Miranda on 11-22-2022 Basophil percentage 101 mg/dL 74-106 [facility] Basophil percentage 136 mmol/L 136-145 [facility] Basophil percentage 5.1 mmol/L 3.5-5.1 [facility] Basophil percentage 97 mmol/L 98-107 [facility] Basophils (Bld) [#/Vol] 9.5 10*3/uL 4.4-11.0 [facility] Chloride [Moles/Vol] 97 mmol/L 98-107 [facility] Glucose [Mass/Vol] 101 mg/dL 74-106 [facility] Comment on above: Fasting Glucose resu lt from 100 to 125 mg/dL suggests IMPAIRED HOMEOSTASIS per A.D.A. criteria. Potassium [Moles/Vol] 5.1 mmol/L 3.5-5.1 [facility] Sodium [Moles/Vol] 136 mmol/L 136-145 [facility] WBC (Bld) [#/Vol] 9.5 10*3/uL 4.4-11.0 [facility] Ammonia (P) [Moles/Vol] 27.0 umol/L [facility] Basophil percentage 27.0 umol/L [facility] Basophil percentageon 2022 Basophil percentage Comment: . [facility] Comment on above: Presence of monoclon al protein is unclear at this time. Suggestrepeat in 3 to 6 months if clinically indicated.Performed at: [facility] [id number] Director: Zen Joshi PhD, Phone: [phone] Blood erythrocytes count (nu mber/volume)Ordered By: Dr. Miranda on 11-22-2022 RBC (Bld) [#/Vol] 3.20 10*6/uL 4.6-6.2 [facility] Blood hemoglobin measurement (mass/volume)Ordered By: Dr. Miranda on 11-22-2022 Hemoglobin (Bld) [Mass/Vol] 10.3 g/dL 13.0-16.5 [facility] Blood platelet mean volumeOr dered By: Dr. Miranda on 11-22-2022 Platelet mean volume (Bld) [Entitic vol] 9.3 fL 6.2-12.0 [facility] Determination of erythrocyte mean corpuscular volume (MCV)Ordered By: Dr. Miranda on 11-22-2022 MCV (RBC) [Entitic vol] 102.2 fL 80-[address] [facility] Hematocrit Auto (Bld) [Volum e fraction]Ordered By: Dr. Miranda on 11-22-2022 Hematocrit (Bld) [Volume fraction] 32.7 % 40-54 [facility] Interpretation of serum or p lasma protein pattern by immunofixation (narrative resulton 11-22-2022 Protein Fractions Immunofixation [place] [Interp] See comment [facility] Comment on above: NOT OBSERVED Laboratory - Chemistry and C hemistry - challengeOrdered By: Dr. Miranda on 11-22-2022 CO2 [Moles/Vol] 32.0 mmol/L 21.0-32.0 [facility] Urea nitrogen/Creatinine [Mass ratio] 6.6 mg/mg 10- [facility] Laboratory - CoagulationOrde red By: Dr. Miranda on 11-22-2022 aPTT Coag (Bld) [Time] 63.2 s 24.1-36.2 [facility] Laboratory - Hematology and Cell countsOrdered By: Dr. Miranda on 11-22-2022 Erythrocyte distribution width (RBC) [Entitic vol] 62.9 fL 35.1-43.9 [facility] Erythrocyte distribution width (RBC) [Ratio] 17.2 % 11.6-14.6 [facility] MCH (RBC) [Entitic mass] 32.2 pg 27.0-32.0 [facility] MCHC Auto (RBC) [Mass/Vol]Or dered By: Dr. Miranda on 11-22-2022 MCHC (RBC) [Mass/Vol] 31.5 g/dL 32-36 [facility] No Panel InformationOrdered By: Dr. Miranda on 11-22-2022 Estimated GFR (MDRD) Amer 9 mL/min >60 [facility] Comment on above: GFR Calc Estimated GFR (MDRD) Non-Af Amer 8 mL/min >60 [facility] Comment on above: Non- GFR Calc 32.2 pg 27.0-32.0 [facility] 17.2 % 11.6-14.6 [facility] 62.9 fl 35.1-43.9 [facility] 63.2 Seconds 24.1-36.2 [facility] 8 mL/min >60 [facility] 9 mL/min >60 [facility] 6.6 RATIO 10-20 [facility] 32.0 mmol/L 21.0-32.0 [facility] No Panel Informationon 11-22 Addendum Document Comment . [facility] Comment on above: Protein electrophore sis scan will follow via computer,mail, or shipyard laborer delivery. Free Lambda Light Chains, Quant 166.5 mg/L 5.7-26.3 [facility] 166.5 mg/L 5.7-26.3 [facility] Platelets bldOrdered By: Dr. Miranda on 11-22-2022 Platelets (Bld) [#/Vol] 268 10*3/uL 150-450 [facility] Serum [id number] measu rement by electrophoresison 11-22-2022 Alpha 1 globulin Elph [Mass/Vol] 0.5 g/dL 0.0-0.4 [facility] Alpha 1 globulin Elph [Mass/Vol] 0.8 g/dL 0.4-1.0 [facility] Serum immunoglobulin kappa l ight chains/immunoglobulin lambda light chains mass ratioon 11-22-2022 Immunoglobulin light chains.kappa/Immunoglob ulin light chains.lambda (S) [Mass ratio] 1.77 0.26-1.65 [facility] Serum or plasma IgA measurem ent (mass/volume)on 11-22-2022 IgA [Mass/Vol] 147 mg/dL 61-437 [facility] Serum or plasma IgG measurem ent (mass/volume)on 11-22-2022 IgG [Mass/Vol] 1495 mg/dL 603-1613 [facility] Serum or plasma IgM measurem ent (mass/volume)on 11-22-2022 IgM [Mass/Vol] 785 mg/dL 15-143 [facility] Comment on above: Results confirmed on dilution. Serum or plasma beta globuli n measurement by electrophoresis (mass/volume)on 11-22-2022 Beta globulin Elph [Mass/Vol] 1.2 g/dL 0.7-1.3 [facility] Serum or plasma calcium khalif urement (mass/volume)Ordered By: Dr. Miranda on 11-22-2022 Calcium [Mass/Vol] 9.4 mg/dL 8.5-10.1 [facility] Serum or plasma creatinine m easurement (mass/volume)Ordered By: Dr. Miranda on 11-22-2022 Creatinine [Mass/Vol] 7.58 mg/dL 0.70-1.30 [facility] Comment on above: Critical Result(s) C alled at: 11:20:48 11/22/2022 by: Shana Herman to Adalgisa Lofton. Results read back by same.The validity of the calculated GFR & GFRAA in patients over 70 years has not been determined. Clinical correlation is essential. Serum or plasma gamma globul in measurement by electrophoresis (mass/volume)on 11-22-2022 Gamma globulin Elph [Mass/Vol] 1.9 g/dL 0.4-1.8 [facility] Serum or plasma immunoelectr ophoresis interpretation (nominal result)on 11-22-2022 Interpretation IEP [Interp] Comment . [facility] Comment on above: No monoclonality det ected. Serum or plasma immunoglobul in kappa light chains measurement (mass/volume)on 11-22-2022 Immunoglobulin light chains.kappa [Mass/Vol] 294.0 mg/L 3.3-19.4 [facility] Serum or plasma urea nitroge n measurement (mass/volume)Ordered By: Dr. Miranda on 11-22-2022 Urea nitrogen [Mass/Vol] 50 mg/dL 7-18 [facility] Thin prep Papanicolaou smear with manual screeningOrdered By: Dr. Miranda on 11-22-2022 Thin prep Papanicolaou smear with manual screening 7 5-15 [facility] Thin prep Papanicolaou smear with manual screeningon 11-22-2022 Thin prep Papanicolaou smear with manual screening 0.9 0.7-1.7 [facility] Total protein bloodon 2022 Protein [Mass/Vol] 8.0 g/dL 6.0-8.5 [facility] INR in Blood by Coagulation assayOrdered By: Dr. Grullon on 11-06-2022 INR Coag (Bld) [Relative time] 2.4 {INR} [facility] Laboratory - CoagulationOrde red By: Dr. Grullon on 11-06-2022 PT Coag (PPP) [Time] 25.7 s 11.7-14.9 [facility] INR in Blood by Coagulation assayOrdered By: Dr. Grullon on 10-16-2022 INR Coag (Bld) [Relative time] 2.8 {INR} [facility] Laboratory - CoagulationOrde red By: Dr. Grullon on 10-16-2022 PT Coag (PPP) [Time] 29.0 s 11.7-14.9 [facility] Absolute lymphocyte countOrd ered By: Deja Jewell on 09-29-2022 Lymphocytes Auto (Unsp spec) [#/Vol] 1.69 10*3/uL 0.83-4.51 [facility] Basophil percentageOrdered B y: Deja Jewell on 09-29-2022 Basophils/100 WBC (Bld) 0.9 % 0-[address] [facility] Eosinophils/100 WBC (Bld) 5.1 % 0-5 [facility] Neutrophils (Bld) [#/Vol] 3.8 10*3/uL 2.0-7.7 [facility] Neutrophils/100 WBC (Bld) 55.8 % 47-70 [facility] WBC (Bld) [#/Vol] 6.8 10*3/uL 4.4-11.0 [facility] Blood erythrocytes count (nu mber/volume)Ordered By: Deja Jewell on 09-29-2022 RBC (Bld) [#/Vol] 3.93 10*6/uL 4.6-6.2 [facility] Blood hemoglobin measurement (mass/volume)Ordered By: Deja Jewell on 09-29-2022 Hemoglobin (Bld) [Mass/Vol] 12.4 g/dL 13.0-16.5 [facility] Blood lymphocytes/100 leukoc ytesOrdered By: Deja Jewell on 09-29-2022 Lymphocytes/100 WBC (Bld) 24.9 % 19-41 [facility] Blood monocytes/100 leukocyt esOrdered By: Deja Jewell on 09-29-2022 Monocytes/100 WBC (Bld) 13.2 % 0-[address] [facility] Blood platelet mean volumeOr dered By: Deja Jewell on 09-29-2022 Platelet mean volume (Bld) [Entitic vol] 10.2 fL 6.2-12.0 [facility] Determination of erythrocyte mean corpuscular volume (MCV)Ordered By: Deja Jewell on 09-29-2022 MCV (RBC) [Entitic vol] 99.0 fL 80-[address] [facility] Hematocrit Auto (Bld) [Volum e fraction]Ordered By: Deja Jewell on 09-29-2022 Hematocrit (Bld) [Volume fraction] 38.9 % 40-54 [facility] Laboratory - Chemistry and C hemistry - challengeOrdered By: Dr. Grullon on 09-29-2022 Free T4 [Mass/Vol] 1.13 ng/dL 0.76-1.46 [facility] Laboratory - Hematology and Cell countsOrdered By: Deja Jewell on 09-29-2022 Erythrocyte distribution width (RBC) [Entitic vol] 54.4 fL 35.1-43.9 [facility] Erythrocyte distribution width (RBC) [Ratio] 14.8 % 11.6-14.6 [facility] Immature granulocytes/100 WBC (Bld) 0.100 % 0.0-0.9 [facility] Comment on above: IG% - Immature Granu locytes (promyelocytes, myelocytes and metamyelocytes) > 1% indicates that a LEFT SHIFT is Present. MCH (RBC) [Entitic mass] 31.6 pg 27.0-32.0 [facility] Nucleated RBC/100 WBC (Bld) [Ratio] 0 % 0-5 [facility] Lower GI hemoglobin IA Ql (S tl)Ordered By: Deja Jewell on 09-29-2022 Stool Occult Blood (SANDRA) Positive [facility] MCHC Auto (RBC) [Mass/Vol]Or dered By: Deja Jewell on 09-29-2022 MCHC (RBC) [Mass/Vol] 31.9 g/dL 32-36 [facility] No Panel InformationOrdered By: Dr. Grullon on 09-29-2022 Thyroid Stimulating Hormone (TSH) 0.72 uIU/mL 0.358-3.74 [facility] Platelets bldOrdered By: Ritu Jewell on 09-29-2022 Platelets (Bld) [#/Vol] 163 10*3/uL 150-450 [facility] INR in Blood by Coagulation assayOrdered By: Dr. Grullon on 09-18-2022 INR Coag (Bld) [Relative time] 2.3 {INR} [facility] Laboratory - CoagulationOrde red By: Dr. Grullon on 09-18-2022 PT Coag (PPP) [Time] 25.0 s 11.7-14.9 [facility] Absolute lymphocyte countOrd ered By: Dr. Ferrara on 09-04-2022 Lymphocytes Auto (Unsp spec) [#/Vol] 1.26 10*3/uL 0.83-4.51 [facility] Basophil percentageOrdered B y: Dr. Ferrara on 09-04-2022 Basophils/100 WBC (Bld) 0.8 % 0-[address] [facility] Eosinophils/100 WBC (Bld) 7.1 % 0-5 [facility] Neutrophils (Bld) [#/Vol] 3.7 10*3/uL 2.0-7.7 [facility] Neutrophils/100 WBC (Bld) 58.9 % 47-70 [facility] WBC (Bld) [#/Vol] 6.2 10*3/uL 4.4-11.0 [facility] Blood erythrocytes count (nu mber/volume)Ordered By: Dr. Ferrara on 09-04-2022 RBC (Bld) [#/Vol] 3.67 10*6/uL 4.6-6.2 [facility] Blood hemoglobin measurement (mass/volume)Ordered By: Dr. Ferrara on 09-04-2022 Hemoglobin (Bld) [Mass/Vol] 11.6 g/dL 13.0-16.5 [facility] Blood lymphocytes/100 leukoc ytesOrdered By: Dr. Ferrara on 09-04-2022 Lymphocytes/100 WBC (Bld) 20.2 % 19-41 [facility] Blood monocytes/100 leukocyt esOrdered By: Dr. Ferrara on 09-04-2022 Monocytes/100 WBC (Bld) 12.8 % 0-[address] [facility] Blood platelet mean volumeOr dered By: Dr. Ferrara on 09-04-2022 Platelet mean volume (Bld) [Entitic vol] 10.1 fL 6.2-12.0 [facility] Determination of erythrocyte mean corpuscular volume (MCV)Ordered By: Dr. Ferrara on 09-04-2022 MCV (RBC) [Entitic vol] 100.3 fL 80-[address] [facility] Hematocrit Auto (Bld) [Volum e fraction]Ordered By: Dr. Ferrara on 09-04-2022 Hematocrit (Bld) [Volume fraction] 36.8 % 40-54 [facility] Laboratory - Hematology and Cell countsOrdered By: Dr. Ferrara on 09-04-2022 Erythrocyte distribution width (RBC) [Entitic vol] 59.2 fL 35.1-43.9 [facility] Erythrocyte distribution width (RBC) [Ratio] 16.1 % 11.6-14.6 [facility] Immature granulocytes/100 WBC (Bld) 0.200 % 0.0-0.9 [facility] Comment on above: IG% - Immature Granu locytes (promyelocytes, myelocytes and metamyelocytes) > 1% indicates that a LEFT SHIFT is Present. MCH (RBC) [Entitic mass] 31.6 pg 27.0-32.0 [facility] Nucleated RBC/100 WBC (Bld) [Ratio] 0 % 0-5 [facility] MCHC Auto (RBC) [Mass/Vol]Or dered By: Dr. Ferrara on 09-04-2022 MCHC (RBC) [Mass/Vol] 31.5 g/dL 32-36 [facility] Platelets bldOrdered By: Dr. Ferrara on 09-04-2022 Platelets (Bld) [#/Vol] 164 10*3/uL 150-450 [facility] INR in Blood by Coagulation assayOrdered By: Dr. Grullon on 08-28-2022 INR Coag (Bld) [Relative time] 4.1 {INR} [facility] Comment on above: CRITICAL VALUE VERIF IED. CALLED TO TRINA CORMIER08/28/22 1324 Sherley Mckeon.RESULTS READ BACK BY SAME . Laboratory - CoagulationOrde red By: Dr. Grullon on 08-28-2022 PT Coag (PPP) [Time] 39.5 s 11.7-14.9 [facility] INR in Blood by Coagulation assayon 08-17-2022 INR Coag (Bld) [Relative time] 5.9 {INR} [facility] Work Phone: Comment on above: CRITICAL VALUE VERIF IED. CALLED TO FELIC[facility]O [facility]08/17/22 1134 Hubert De Los Santos.RESULTS READ BACK BY SAME. Laboratory - Coagulationon 0 08-17-2022 PT Coag (PPP) [Time] 52.7 s 11.7-14.9 [facility] Work Phone: INR in Blood by Coagulation assayon 08-03-2022 INR Coag (Bld) [Relative time] 3.3 {INR} [facility] Work Phone: Laboratory - Coagulationon 0 08-03-2022 PT Coag (PPP) [Time] 33.3 s 11.7-14.9 [facility] Work Phone: Absolute lymphocyte counton 07-28-2022 Lymphocytes Auto (Unsp spec) [#/Vol] 1.04 10*3/uL 0.83-4.51 [facility] Work Phone: Basophil percentageon 2021 Basophils/100 WBC (Bld) 0.5 % 0-[address] [facility] Work Phone: Eosinophils/100 WBC (Bld) 5.2 % 0-5 [facility] Work Phone: Neutrophils (Bld) [#/Vol] 3.7 10*3/uL 2.0-7.7 [facility] Work Phone: Neutrophils/100 WBC (Bld) 63.4 % 47-70 [facility] Work Phone: WBC (Bld) [#/Vol] 5.8 10*3/uL 4.4-11.0 [facility] Work Phone: Blood erythrocytes count (nu mber/volume)on 07-28-2022 RBC (Bld) [#/Vol] 2.57 10*6/uL 4.6-6.2 [facility] Work Phone: Blood hemoglobin measurement (mass/volume)on 07-28-2022 Hemoglobin (Bld) [Mass/Vol] 8.2 g/dL 13.0-16.5 [facility] Work Phone: Blood lymphocytes/100 leukoc yteson 07-28-2022 Lymphocytes/100 WBC (Bld) 17.9 % 19-41 [facility] Work Phone: Blood monocytes/100 leukocyt eson 07-28-2022 Monocytes/100 WBC (Bld) 12.7 % 0-[address] [facility] Work Phone: Blood platelet mean volumeon 07-28-2022 Platelet mean volume (Bld) [Entitic vol] 10.0 fL 6.2-12.0 [facility] Work Phone: [phone] Determination of erythrocyte mean corpuscular volume (MCV)on 07-28-2022 MCV (RBC) [Entitic vol] 102.7 fL 80-[address] [facility] Work Phone: Hematocrit Auto (Bld) [Volum e fraction]on 07-28-2022 Hematocrit (Bld) [Volume fraction] 26.4 % 40-54 [facility] Work Phone: Laboratory - Hematology and Cell countson 07-28-2022 Erythrocyte distribution width (RBC) [Entitic vol] 63.8 fL 35.1-43.9 [facility] Work Phone: Erythrocyte distribution width (RBC) [Ratio] 17.0 % 11.6-14.6 [facility] Work Phone: Immature granulocytes/100 WBC (Bld) 0.300 % 0.0-0.9 [facility] Work Phone: Comment on above: IG% - Immature Granu locytes (promyelocytes, myelocytes and metamyelocytes) > 1% indicates that a LEFT SHIFT is Present. MCH (RBC) [Entitic mass] 31.9 pg 27.0-32.0 [facility] Work Phone: Nucleated RBC/100 WBC (Bld) [Ratio] 0 % 0-5 [facility] Work Phone: MCHC Auto (RBC) [Mass/Vol]on 07-28-2022 MCHC (RBC) [Mass/Vol] 31.1 g/dL 32-36 [facility] Work Phone: Platelets bldon 07-28-2022 Platelets (Bld) [#/Vol] 103 10*3/uL 150-450 [facility] Work Phone: Basophil percentageon 2021 Bilirubin [Mass/Vol] 0.70 mg/dL 0.20-1.00 [facility] Work Phone: Comment on above: For patients on eltr ombopag therapy, use of Dimension [place] TBIL is not recommended. Chloride [Moles/Vol] 99 mmol/L 98-107 [facility] Work Phone: Glucose [Mass/Vol] 142 mg/dL 74-106 [facility] Work Phone: Comment on above: Fasting Glucose resu lt greater than or equal to 126 mg/dL suggests DIABETES MELLITUS per A.D.A. criteria. Potassium [Moles/Vol] 3.8 mmol/L 3.5-5.1 [facility] Work Phone: Protein [Mass/Vol] 6.2 g/dL 6.4-8.2 [facility] Work Phone: Sodium [Moles/Vol] 136 mmol/L 136-145 [facility] Work Phone: Direct bilirubinon 2 Bilirubin.direct [Mass/Vol] 0.41 mg/dL 0.00-0.30 [facility] Work Phone: Laboratory - Chemistry and C hemistry - challengeon 07-20-2022 ALP [Catalytic activity/Vol] 297 U/L 45-117 [facility] Work Phone: ALT [Catalytic activity/Vol] 26 U/L 16-61 [facility] Work Phone: CO2 [Moles/Vol] 25.0 mmol/L 21.0-32.0 [facility] Work Phone: Globulin (S) [Mass/Vol] 3.4 g/dL 2.2-4.[address] [facility] Work Phone: Urea nitrogen/Creatinine [Mass ratio] 7.6 mg/mg 10-20 [facility] Work Phone: Laboratory - Coagulationon 0 07-20-2022 aPTT Coag (Bld) [Time] 37.8 s 24.1-36.2 [facility] Work Phone: No Panel Informationon 07-20 Estimated GFR (MDRD) Amer 10 mL/min >60 [facility] Work Phone: Comment on above: GFR Calc Estimated GFR (MDRD) Non-Af Amer 8 mL/min >60 [facility] Work Phone: Comment on above: Non- GFR Calc Serum or plasma albumin khalif urement (mass/volume)on 07-20-2022 Albumin [Mass/Vol] 2.8 g/dL 3.2-5.0 [facility] Work Phone: Serum or plasma [id number] protein tumor marker measurement (units/volume)on 07-20-2022 AFP.tumor marker Qn 1.1 ng/mL 0.0-8.4 [facility] Work Phone: Comment on above: [employer] El ectrochemiluminescence Immunoassay(ECLIA)Values obtained with different assay methods or kits cannotbe used interchangeably. Results cannot be interpreted asabsolute evidence of the presence or absence of malignantdisease.This test is not interpretable in females.Performed at: [address] [id number] Director: Zen Joshi PhD, Phone: [phone] Serum or plasma calcium khalif urement (mass/volume)on 07-20-2022 Calcium [Mass/Vol] 7.4 mg/dL 8.5-10.1 [facility] Work Phone: Serum or plasma creatinine m easurement (mass/volume)on 07-20-2022 Creatinine [Mass/Vol] 6.95 mg/dL 0.70-1.30 [facility] Work Phone: Comment on above: The validity of the calculated GFR & GFRAA in patients over 70 years has not been determined. Clinical correlation is essential. Serum or plasma urea nitroge n measurement (mass/volume)on 07-20-2022 Urea nitrogen [Mass/Vol] 53 mg/dL 7-18 [facility] Work Phone: Thin prep Papanicolaou smear with manual screeningon 07-20-2022 Thin prep Papanicolaou smear with manual screening 31 U/L 15-37 [facility] Work Phone: [phone] Thin prep Papanicolaou smear with manual screening 12 5-15 [facility] Work Phone: Absolute lymphocyte counton 07-18-2022 Lymphocytes Auto (Unsp spec) [#/Vol] 0.97 10*3/uL 0.83-4.51 [facility] Work Phone: Basophil percentageon 2021 Basophils/100 WBC (Bld) 0.6 % 0-[address] [facility] Work Phone: Bilirubin [Mass/Vol] 0.80 mg/dL 0.20-1.00 [facility] Work Phone: Comment on above: For patients on eltr ombopag therapy, use of Dimension [place] TBIL is not recommended. Chloride [Moles/Vol] 95 mmol/L 98-107 [facility] Work Phone: Eosinophils/100 WBC (Bld) 5.8 % 0-5 [facility] Work Phone: [phone] Glucose [Mass/Vol] 83 mg/dL 74-106 [facility] Work Phone: Neutrophils (Bld) [#/Vol] 4.5 10*3/uL 2.0-7.7 [facility] Work Phone: [phone] Neutrophils/100 WBC (Bld) 66.9 % 47-70 [facility] Work Phone: [phone] Potassium [Moles/Vol] 3.9 mmol/L 3.5-5.1 [facility] Work Phone: [phone] Protein [Mass/Vol] 5.7 g/dL 6.4-8.2 [facility] Work Phone: Sodium [Moles/Vol] 133 mmol/L 136-145 [facility] Work Phone: WBC (Bld) [#/Vol] 6.7 10*3/uL 4.4-11.0 [facility] Work Phone: Blood erythrocytes count (nu mber/volume)on 07-18-2022 RBC (Bld) [#/Vol] 2.59 10*6/uL 4.6-6.2 [facility] Work Phone: Blood hemoglobin measurement (mass/volume)on 07-18-2022 Hemoglobin (Bld) [Mass/Vol] 8.1 g/dL 13.0-16.5 [facility] Work Phone: Blood lymphocytes/100 leukoc yteson 07-18-2022 Lymphocytes/100 WBC (Bld) 14.4 % 19-41 [facility] Work Phone: [phone] Blood monocytes/100 leukocyt eson 07-18-2022 Monocytes/100 WBC (Bld) 11.9 % 0-[address] [facility] Work Phone: Blood platelet mean volumeon 07-18-2022 Platelet mean volume (Bld) [Entitic vol] 9.6 fL 6.2-12.0 [facility] Work Phone: Determination of erythrocyte mean corpuscular volume (MCV)on 07-18-2022 MCV (RBC) [Entitic vol] 95.8 fL 80-[address] [facility] Work Phone: Hematocrit Auto (Bld) [Volum e fraction]on 07-18-2022 Hematocrit (Bld) [Volume fraction] 24.8 % 40-54 [facility] Work Phone: INR in Blood by Coagulation assayon 07-18-2022 INR Coag (Bld) [Relative time] 3.4 {INR} [facility] Work Phone: Laboratory - Chemistry and C hemistry - challengeon 07-18-2022 ALP [Catalytic activity/Vol] 275 U/L 45-117 [facility] Work Phone: ALT [Catalytic activity/Vol] 26 U/L 16-61 [facility] Work Phone: CO2 [Moles/Vol] 29.0 mmol/L 21.0-32.0 [facility] Work Phone: [phone] Globulin (S) [Mass/Vol] 3.1 g/dL 2.2-4.[address] [facility] Work Phone: Urea nitrogen/Creatinine [Mass ratio] 7.8 mg/mg 10-20 [facility] Work Phone: Laboratory - Coagulationon 0 07-18-2022 PT Coag (PPP) [Time] 34.4 s 11.7-14.9 [facility] Work Phone: Laboratory - Hematology and Cell countson 07-18-2022 Erythrocyte distribution width (RBC) [Entitic vol] 57.6 fL 35.1-43.9 [facility] Work Phone: Erythrocyte distribution width (RBC) [Ratio] 16.8 % 11.6-14.6 [facility] Work Phone: Immature granulocytes/100 WBC (Bld) 0.400 % 0.0-0.9 [facility] Work Phone: Comment on above: IG% - Immature Granu locytes (promyelocytes, myelocytes and metamyelocytes) > 1% indicates that a LEFT SHIFT is Present. MCH (RBC) [Entitic mass] 31.3 pg 27.0-32.0 [facility] Work Phone: Nucleated RBC/100 WBC (Bld) [Ratio] 0 % 0-5 [facility] Work Phone: MCHC Auto (RBC) [Mass/Vol]on 07-18-2022 MCHC (RBC) [Mass/Vol] 32.7 g/dL 32-36 [facility] Work Phone: No Panel Informationon 07-18 Estimated Creatinine Clearance Calc 15.89 ml/min [facility] Work Phone: Estimated GFR (MDRD) Amer 20 mL/min >60 [facility] Work Phone: Comment on above: GFR Calc Estimated GFR (MDRD) Non-Af Amer 16 mL/min >60 [facility] Work Phone: Comment on above: Non- GFR Calc Platelets bldon 07-18-2022 Platelets (Bld) [#/Vol] 133 10*3/uL 150-450 [facility] Work Phone: Serum or plasma albumin khalif urement (mass/volume)on 07-18-2022 Albumin [Mass/Vol] 2.6 g/dL 3.2-5.0 [facility] Work Phone: Serum or plasma albumin/glob ulin mass ratioon 07-18-2022 Albumin/Globulin [Mass ratio] 0.8 {ratio} 0.9-2.4 [facility] Work Phone: Serum or plasma calcium khalif urement (mass/volume)on 07-18-2022 Calcium [Mass/Vol] 7.4 mg/dL 8.5-10.1 [facility] Work Phone: Serum or plasma creatinine m easurement (mass/volume)on 07-18-2022 Creatinine [Mass/Vol] 3.87 mg/dL 0.70-1.30 [facility] Work Phone: Comment on above: The validity of the calculated GFR & GFRAA in patients over 70 years has not been determined. Clinical correlation is essential. Serum or plasma urea nitroge n measurement (mass/volume)on 07-18-2022 Urea nitrogen [Mass/Vol] 30 mg/dL 7-18 [facility] Work Phone: Thin prep Papanicolaou smear with manual screeningon 07-18-2022 Thin prep Papanicolaou smear with manual screening 39 U/L 15-37 [facility] Work Phone: Thin prep Papanicolaou smear with manual screening 9 5-15 [facility] Work Phone: Basophil percentageon 2021 Basophil percentage 6.0 mg/dL 2.5-4.9 [facility]: Laboratory - Chemistry and C hemistry - challengeon 07-17-2022 Magnesium [Mass/Vol] 2.0 mg/dL 1.6-2.6 [facility] Work Phone: [phone] Absolute lymphocyte counton 07-15-2022 Lymphocytes Auto (Unsp spec) [#/Vol] 0.72 10*3/uL 0.83-4.51 [facility] Work Phone: Basophil percentageon 2021 Bas[facility] 0-5 [facility] Work Phone: [phone] Ammonia (P) [Moles/Vol] 46.0 umol/L 11-32 [facility] Work Phone: Basophils/100 WBC (Bld) 0.2 % 0-[address] [facility] Work Phone: Bilirubin [Mass/Vol] 0.70 mg/dL 0.20-1.00 [facility] Work Phone: Comment on above: For patients on eltr ombopag therapy, use of Dimension [place] TBIL is not recommended. Chloride [Moles/Vol] 99 mmol/L 98-107 [facility] Work Phone: Eosinophils/100 WBC (Bld) 1.5 % 0-5 [facility] Work Phone: Glucose [Mass/Vol] 95 mg/dL 74-106 [facility] Work Phone: Neutrophils (Bld) [#/Vol] 4.1 10*3/uL 2.0-7.7 [facility] Work Phone: Neutrophils/100 WBC (Bld) 75.5 % 47-70 [facility] Work Phone: Potassium [Moles/Vol] 4.2 mmol/L 3.5-5.1 [facility] Work Phone: Protein [Mass/Vol] 6.3 g/dL 6.4-8.2 [facility] Work Phone: Sodium [Moles/Vol] 138 mmol/L 136-145 [facility] Work Phone: WBC (Bld) [#/Vol] 5.4 10*3/uL 4.4-11.0 [facility] Work Phone: Bilirubin Test strip Ql (U)o n 07-15-2022 Bilirubin Ql (U) 1 mg/dL Negative [facility] Work Phone: Comment on above: COLOR OF URINE MAY A FFECT DIPSTICK RESULTS. Blood erythrocytes count (nu mber/volume)on 07-15-2022 RBC (Bld) [#/Vol] 1.59 10*6/uL 4.6-6.2 [facility] Work Phone: Blood hemoglobin measurement (mass/volume)on 07-15-2022 Hemoglobin (Bld) [Mass/Vol] 5.4 g/dL 13.0-16.5 [facility] Work Phone: Blood lymphocytes/100 leukoc yteson 07-15-2022 Lymphocytes/100 WBC (Bld) 13.2 % 19-41 [facility] Work Phone: [phone] Blood monocytes/100 leukocyt eson 07-15-2022 Monocytes/100 WBC (Bld) 9.2 % 0-[address] [facility] Work Phone: Blood platelet adequacy dete ction by light microscopyon 07-15-2022 Platelets LM Ql (Bld) 5.4 ADEQ [facility] Work Phone: Blood platelet mean volumeon 07-15-2022 Platelet mean volume (Bld) [Entitic vol] 9.4 fL 6.2-12.0 [facility] Work Phone: Determination of erythrocyte mean corpuscular volume (MCV)on 07-15-2022 MCV (RBC) [Entitic vol] 99.4 fL 80-[address] [facility] Work Phone: [phone] Direct bilirubinon 2 Bilirubin.direct [Mass/Vol] 0.37 mg/dL 0.00-0.30 [facility] Work Phone: Hematocrit Auto (Bld) [Volum e fraction]on 07-15-2022 Hematocrit (Bld) [Volume fraction] 15.8 % 40-54 [facility] Work Phone: Hypochromatic red blood cell detectionon 07-15-2022 Hypochromia Ql (Bld) 2+ [facility] Work Phone: INR in Blood by Coagulation assayon 07-15-2022 INR Coag (Bld) [Relative time] 5.9 {INR} [facility] Work Phone: Ketones Test strip Ql (U)on 07-15-2022 Ketones Ql (U) Negative Negative [facility] Work Phone: Laboratory - Chemistry and C hemistry - challengeon 07-15-2022 ALP [Catalytic activity/Vol] 297 U/L 45-117 [facility] Work Phone: ALT [Catalytic activity/Vol] 27 U/L 16-61 [facility] Work Phone: CO2 [Moles/Vol] 35.0 mmol/L 21.0-32.0 [facility] Work Phone: Globulin (S) [Mass/Vol] 3.5 g/dL 2.2-4.[address] [facility] Work Phone: Lipase [Catalytic activity/Vol] 277 U/L 73-393 [facility] Work Phone: Natriuretic peptide B (Bld) [Mass/Vol] 277.9 pg/mL 0-100 [facility] Work Phone: Urea nitrogen/Creatinine [Mass ratio] 11.8 mg/mg 10-20 [facility] Work Phone: Laboratory - Coagulationon 0 07-15-2022 PT Coag (PPP) [Time] 52.8 s 11.7-14.9 [facility] Work Phone: Laboratory - Hematology and Cell countson 07-15-2022 Erythrocyte distribution width (RBC) [Entitic vol] 59.7 fL 35.1-43.9 [facility] Work Phone: Erythrocyte distribution width (RBC) [Ratio] 16.9 % 11.6-14.6 [facility] Work Phone: Immature granulocytes/100 WBC (Bld) 0.400 % 0.0-0.9 [facility] Work Phone: Comment on above: IG% - Immature Granu locytes (promyelocytes, myelocytes and metamyelocytes) > 1% indicates that a LEFT SHIFT is Present. MCH (RBC) [Entitic mass] 34.0 pg 27.0-32.0 [facility] Work Phone: Nucleated RBC/100 WBC (Bld) [Ratio] 0 % 0-5 [facility] Work Phone: MCHC Auto (RBC) [Mass/Vol]on 07-15-2022 MCHC (RBC) [Mass/Vol] 34.2 g/dL 32-36 [facility] Work Phone: Mucus LM Ql (Urine sed)on Mucus Ql (Urine sed) 0 SEEN /hpf [facility] Work Phone: Nitrite Test strip Ql (U)on 07-15-2022 Nitrite Ql (U) Negative Negative [facility] Work Phone: No Panel Informationon 07-15 Estimated Creatinine Clearance Calc 20.10 ml/min [facility] Work Phone: Estimated GFR (MDRD) Amer 26 mL/min >60 [facility] Work Phone: Comment on above: GFR Calc Estimated GFR (MDRD) Non-Af Amer 21 mL/min >60 [facility] Work Phone: Comment on above: Non- GFR Calc Troponin I High Sensitivity 59 pg/mL 3.0-78.0 [facility] Work Phone: Comment on above: Please Note: New Nichole t Units and Gender Specific Reference Ranges. For more information see Policy Stat Procedure [place] High Sensitivity Troponin (TNIH) and attachments. Platelets bldon 07-15-2022 Platelets (Bld) [#/Vol] 125 10*3/uL 150-450 [facility] Work Phone: Protein Test strip Ql (U)on 07-15-2022 Protein Ql (U) 30 mg/dl Negative [facility] Work Phone: Review by pathologiston 06-20 Pathologist review [place] (Unsp spec) [Interp] Flor barber [facility] Work Phone: Pathologist review [place] (Unsp spec) [Interp] Reviewed [facility] Work Phone: Comment on above: Previous reported re sult: Flor barber Edited by: RGOOD on 07/17/22:1533Severe Microcytic anemia.Mild Thrombocytopenia.Clinical correlation necessary.Jose Farnk M.D. 07/17/22 AMENDED REPORT 07/17/22 1533 PATH REV previously reported as: Flor barber Serum or plasma albumin khalif urement (mass/volume)on 07-15-2022 Albumin [Mass/Vol] 2.8 g/dL 3.2-5.0 [facility] Work Phone: Serum or plasma calcium khalif urement (mass/volume)on 07-15-2022 Calcium [Mass/Vol] 8.5 mg/dL 8.5-10.1 [facility] Work Phone: Serum or plasma creatinine m easurement (mass/volume)on 07-15-2022 Creatinine [Mass/Vol] 3.06 mg/dL 0.70-1.30 [facility] Work Phone: Comment on above: The validity of the calculated GFR & GFRAA in patients over 70 years has not been determined. Clinical correlation is essential. Serum or plasma urea nitroge n measurement (mass/volume)on 07-15-2022 Urea nitrogen [Mass/Vol] 36 mg/dL 7-18 [facility] Work Phone: Squamous epithelial cells de tection in urine sediment by light microscopyon 07-15-2022 Epithelial cells.squamous LM Ql (Urine sed) 0 SEEN /hpf 0-5 [facility] Work Phone: Thin prep Papanicolaou smear with manual screeningon 07-15-2022 Thin prep Papanicolaou smear with manual screening 32 U/L 15-37 [facility] Work Phone: Thin prep Papanicolaou smear with manual screening 4 5-15 [facility] Work Phone: Urine blood detectionon 06-20 RBC Ql (U) Negative Negative [facility] Work Phone: RBC Ql (U) 0 SEEN /hpf 0-5 [facility] Work Phone: Urine clarityon 07-15-2022 Clarity (U) Clear Clear [facility] Work Phone: Urine color determinationon 07-15-2022 Color (U) Yellow Yellow [facility] Work Phone: Urine glucose detectionon Glucose Ql (U) Normal mg/dl Normal [facility] Work Phone: Urine leukocyte esterase det ection by dipstickon 07-15-2022 Leukocyte esterase Test strip Ql (U) 25 /ul Negative [facility] Work Phone: Urine pHon 07-15-2022 pH (U) 8.0 [pH] 5.0 - 8.0 [facility] Work Phone: Urine sediment bacteria coun t by microscopy (number/high power field)on 07-15-2022 Bacteria LM.HPF (Urine sed) [#/Area] 1 /[HPF] None Seen [facility] Work Phone: Urine specific gravity measu rementon 07-15-2022 Specific gravity (U) [Rel density] 1.010 1.002-1.030 [facility] Work Phone: Urobilinogen Auto test strip Ql (U)on 07-15-2022 Urobilinogen Ql (U) Normal mg/dl Normal [facility] Work Phone: INR in Blood by Coagulation assayon 07-05-2022 INR Coag (Bld) [Relative time] 3.0 {INR} [facility] Work Phone: Laboratory - Coagulationon 0 07-05-2022 PT Coag (PPP) [Time] 30.7 s 11.7-14.9 [facility] Work Phone: [phone] INR in Blood by Coagulation assayon 06-14-2022 INR Coag (Bld) [Relative time] 1.7 {INR} [facility] Work Phone: Laboratory - Coagulationon 0 06-14-2022 PT Coag (PPP) [Time] 19.9 s 11.7-14.9 [facility] Work Phone: Absolute lymphocyte counton 06-06-2022 Lymphocytes Auto (Unsp spec) [#/Vol] 1.06 10*3/uL 0.83-4.51 [facility] Work Phone: Basophil percentageon 2021 Basophils/100 WBC (Bld) 0.9 % 0-1 [facility] Work Phone: Bilirubin [Mass/Vol] 1.40 mg/dL 0.20-1.00 [facility] Work Phone: Comment on above: For patients on eltr ombopag therapy, use of Dimension [place] TBIL is not recommended. Chloride [Moles/Vol] 99 mmol/L 98-107 [facility] Work Phone: Eosinophils/100 WBC (Bld) 5.5 % 0-5 [facility] Work Phone: Glucose [Mass/Vol] 132 mg/dL 74-106 [facility] Work Phone: Comment on above: Fasting Glucose resu lt greater than or equal to 126 mg/dL suggests DIABETES MELLITUS per A.D.A. criteria. Neutrophils (Bld) [#/Vol] 3.8 10*3/uL 2.0-7.7 [facility] Work Phone: Neutrophils/100 WBC (Bld) 64.1 % 47-70 [facility] Work Phone: [phone] Potassium [Moles/Vol] 4.2 mmol/L 3.5-5.1 [facility] Work Phone: [phone] Protein [Mass/Vol] 8.9 g/dL 6.4-8.2 [facility] Work Phone: Sodium [Moles/Vol] 139 mmol/L 136-145 [facility] Work Phone: WBC (Bld) [#/Vol] 5.9 10*3/uL 4.4-11.0 [facility] Work Phone: Blood erythrocytes count (nu mber/volume)on 06-06-2022 RBC (Bld) [#/Vol] 3.86 10*6/uL 4.6-6.2 [facility] Work Phone: [phone] Blood hemoglobin measurement (mass/volume)on 06-06-2022 Hemoglobin (Bld) [Mass/Vol] 12.4 g/dL 13.0-16.5 [facility] Work Phone: Blood lymphocytes/100 leukoc yteson 06-06-2022 Lymphocytes/100 WBC (Bld) 18.1 % 19-41 [facility] Work Phone: [phone] Blood monocytes/100 leukocyt eson 06-06-2022 Monocytes/100 WBC (Bld) 11.2 % 0-[address] [facility] Work Phone: Blood platelet mean volumeon 06-06-2022 Platelet mean volume (Bld) [Entitic vol] 9.2 fL 6.2-12.0 [facility] Work Phone: Determination of erythrocyte mean corpuscular volume (MCV)on 06-06-2022 MCV (RBC) [Entitic vol] 98.4 fL 80-[address] [facility] Work Phone: [phone] Hematocrit Auto (Bld) [Volum e fraction]on 06-06-2022 Hematocrit (Bld) [Volume fraction] 38.0 % 40-54 [facility] Work Phone: Iron measurement (mass/mass) Ordered By: Karthikeyan Turner on 06-06-2022 Iron (Unsp spec) [Mass/Mass] 143 ug/dL 65-175 [facility] Laboratory - Chemistry and C hemistry - challengeon 06-06-2022 ALP [Catalytic activity/Vol] 566 U/L 45-117 [facility] Work Phone: ALT [Catalytic activity/Vol] 56 U/L 16-61 [facility] Work Phone: CO2 [Moles/Vol] 33.0 mmol/L 21.0-32.0 [facility] Work Phone: Globulin (S) [Mass/Vol] 5.1 g/dL 2.2-4.[address] [facility] Work Phone: Urea nitrogen/Creatinine [Mass ratio] 8.7 mg/mg 10-20 [facility] Work Phone: Laboratory - Chemistry and C hemistry - challengeOrdered By: Karthikeyan Turner on 06-06-2022 Cobalamin (Vitamin B12) [Mass/Vol] 1049 pg/mL 211-911 [facility] [facility] - Hematology and Cell countson 06-06-2022 Erythrocyte distribution width (RBC) [Entitic vol] 50.9 fL 35.1-43.9 [facility] Work Phone: Erythrocyte distribution width (RBC) [Ratio] 14.0 % 11.6-14.6 [facility] Work Phone: Immature granulocytes/100 WBC (Bld) 0.200 % 0.0-0.9 [facility] Work Phone: Comment on above: IG% - Immature Granu locytes (promyelocytes, myelocytes and metamyelocytes) > 1% indicates that a LEFT SHIFT is Present. MCH (RBC) [Entitic mass] 32.1 pg 27.0-32.0 [facility] Work Phone: Nucleated RBC/100 WBC (Bld) [Ratio] 0 % 0-5 [facility] Work Phone: MCHC Auto (RBC) [Mass/Vol]on 06-06-2022 MCHC (RBC) [Mass/Vol] 32.6 g/dL 32-36 [facility] Work Phone: No Panel Informationon 06-06 Estimated Creatinine Clearance Calc 19.91 ml/min [facility] Work Phone: Estimated GFR (MDRD) Amer 26 mL/min >60 [facility] Work Phone: Comment on above: GFR Calc Estimated GFR (MDRD) Non-Af Amer 21 mL/min >60 [facility] Work Phone: Comment on above: Non- GFR Calc No Panel InformationOrdered By: Karthikeyan Turner on 06-06-2022 Total Iron Binding Capacity 297 ug/dL 250-450 [facility] 1049 pg/mL High 211-911 [facility] 297 ug/dL 250-450 [facility] Platelets bldon 06-06-2022 Platelets (Bld) [#/Vol] 133 10*3/uL 150-450 [facility] Work Phone: Serum or plasma albumin khalif urement (mass/volume)on 06-06-2022 Albumin [Mass/Vol] 3.8 g/dL 3.2-5.0 [facility] Work Phone: Serum or plasma albumin/glob ulin mass ratioon 06-06-2022 Albumin/Globulin [Mass ratio] 0.7 {ratio} 0.9-2.4 [facility] Work Phone: Serum or plasma calcium khalif urement (mass/volume)on 06-06-2022 Calcium [Mass/Vol] 9.8 mg/dL 8.5-10.1 [facility] Work Phone: Serum or plasma creatinine m easurement (mass/volume)on 06-06-2022 Creatinine [Mass/Vol] 3.09 mg/dL 0.70-1.30 [facility] Work Phone: Comment on above: The validity of the calculated GFR & GFRAA in patients over 70 years has not been determined. Clinical correlation is essential. Serum or plasma ferritin vivienne surement (mass/volume)Ordered By: Karthikeyan Turner on 06-06-2022 Ferritin [Mass/Vol] 829 ng/mL High 26-388 [facility] Serum or plasma folate measu rement (mass/volume)Ordered By: Karthikeyan Turner on 06-06-2022 Folate [Mass/Vol] 54.20 ng/mL 3.1-55.4 [facility] Serum or plasma iron saturat ion measurement (mass fraction)Ordered By: Karthikeyan Turner on 06-06-2022 Iron saturation [Mass fraction] 48.1 % 15.0-55.0 [facility] Serum or plasma urea nitroge n measurement (mass/volume)on 06-06-2022 Urea nitrogen [Mass/Vol] 27 mg/dL 7-18 [facility] Work Phone: Thin prep Papanicolaou smear with manual screeningon 06-06-2022 Thin prep Papanicolaou smear with manual screening 71 U/L 15-37 [facility] Work Phone: Thin prep Papanicolaou smear with manual screening 7 5-15 [facility] Work Phone: Thin prep Papanicolaou smear with manual screening 537 U/L 87-241 [facility] Work Phone: INR in Blood by Coagulation assayon 05-17-2022 INR Coag (Bld) [Relative time] 2.6 {INR} [facility] Work Phone: Laboratory - Coagulationon 0 05-17-2022 PT Coag (PPP) [Time] 27.7 s 11.7-14.9 [facility] Work Phone: Albumin Elph [Mass/Vol]on Albumin [Mass/Vol] 3.6 g/dL 2.9-4.4 [facility] Work Phone: Basophil percentageon 2021 Ammonia (P) [Moles/Vol] 37.0 umol/L 11-32 [facility] Work Phone: Basophil percentage Comment: . [facility] Work Phone: Comment on above: Presence of monoclon al protein is unclear at this time. Suggestrepeat in 3 to 6 months if clinically indicated.Performed at: - [address] [id number] Director: Zen Joshi PhD, Phone: [phone] Interpretation of serum or p lasma protein pattern by immunofixation (narrative resulton 04-26-2022 Protein Fractions Immunofixation [place] [Interp] See comment [facility] Work Phone: Comment on above: NOT OBSERVED No Panel Informationon 04-26 Addendum Document Comment . [facility] Work Phone: Comment on above: Protein electrophore sis scan will follow via computer,mail, or shipyard laborer delivery. Free Lambda Light Chains, Quant 98.8 mg/L 5.7-26.3 [facility] Work Phone: Serum aisqk-5-[id number] measu rement by electrophoresison 04-26-2022 Alpha 1 globulin Elph [Mass/Vol] 0.4 g/dL 0.0-0.4 [facility] Work Phone: Alpha 1 globulin Elph [Mass/Vol] 0.6 g/dL 0.4-1.0 [facility] Work Phone: Serum globulin measurement ( mass/volume)on 04-26-2022 Globulin (S) [Mass/Vol] 3.5 g/dL 2.2-3.[address] [facility] Work Phone: Serum immunoglobulin kappa l ight chains/immunoglobulin lambda light chains mass ratioon 04-26-2022 Immunoglobulin light chains.kappa/Immunoglob ulin light chains.lambda (S) [Mass ratio] 1.89 0.26-1.65 [facility] Work Phone: Serum or plasma IgA measurem ent (mass/volume)on 04-26-2022 IgA [Mass/Vol] 106 mg/dL 61-437 [facility] Work Phone: Serum or plasma IgG measurem ent (mass/volume)on 04-26-2022 IgG [Mass/Vol] 1296 mg/dL 603-1613 [facility] Work Phone: Serum or plasma IgM measurem ent (mass/volume)on 04-26-2022 IgM [Mass/Vol] 423 mg/dL 15-143 [facility] Work Phone: Serum or plasma beta globuli n measurement by electrophoresis (mass/volume)on 04-26-2022 Beta globulin Elph [Mass/Vol] 0.9 g/dL 0.7-1.3 [facility] Work Phone: Serum or plasma gamma globul in measurement by electrophoresis (mass/volume)on 04-26-2022 Gamma globulin Elph [Mass/Vol] 1.6 g/dL 0.4-1.8 [facility] Work Phone: Serum or plasma immunoelectr ophoresis interpretation (nominal result)on 04-26-2022 Interpretation IEP [Interp] Comment . [facility] Work Phone: Comment on above: No monoclonality det ected. Serum or plasma immunoglobul in kappa light chains measurement (mass/volume)on 04-26-2022 Immunoglobulin light chains.kappa [Mass/Vol] 187.0 mg/L 3.3-19.4 [facility] Work Phone: Thin prep Papanicolaou smear with manual screeningon 04-26-2022 Thin prep Papanicolaou smear with manual screening 1.1 0.7-1.7 [facility] Work Phone: Total protein bloodon 2021 Protein [Mass/Vol] 7.1 g/dL 6.0-8.5 [facility] Work Phone: INR in Blood by Coagulation assayon 04-14-2022 INR Coag (Bld) [Relative time] 2.1 {INR} [facility] Work Phone: Laboratory - Coagulationon 0 04-14-2022 PT Coag (PPP) [Time] 23.1 s 11.7-14.9 [facility] Work Phone: [phone] INR in Blood by Coagulation assayon 04-07-2022 INR Coag (Bld) [Relative time] 3.3 {INR} [facility] Work Phone: Laboratory - Coagulationon 0 04-07-2022 PT Coag (PPP) [Time] 33.3 s 11.7-14.9 [facility] Work Phone: Absolute lymphocyte counton 04-06-2022 Lymphocytes Auto (Unsp spec) [#/Vol] 1.36 10*3/uL 0.83-4.51 [facility] Work Phone: Basophil percentageon 2021 Basophils/100 WBC (Bld) 0.5 % 0-[address] [facility] Work Phone: [phone] Chloride [Moles/Vol] 97 mmol/L 98-107 [facility] Work Phone: Eosinophils/100 WBC (Bld) 5.6 % 0-5 [facility] Work Phone: [phone] Glucose [Mass/Vol] 87 mg/dL 74-106 [facility] Work Phone: Neutrophils (Bld) [#/Vol] 3.8 10*3/uL 2.0-7.7 [facility] Work Phone: Neutrophils/100 WBC (Bld) 60.1 % 47-70 [facility] Work Phone: [phone] Potassium [Moles/Vol] 4.5 mmol/L 3.5-5.1 [facility] Work Phone: Sodium [Moles/Vol] 132 mmol/L 136-145 [facility] Work Phone: WBC (Bld) [#/Vol] 6.3 10*3/uL 4.4-11.0 [facility] Work Phone: Blood erythrocytes count (nu mber/volume)on 04-06-2022 RBC (Bld) [#/Vol] 2.59 10*6/uL 4.6-6.2 [facility]: Blood hemoglobin measurement (mass/volume)on 04-06-2022 Hemoglobin (Bld) [Mass/Vol] 8.3 g/dL 13.0-16.5 [facility] Work Phone: Blood lymphocytes/100 leukoc yteson 04-06-2022 Lymphocytes/100 WBC (Bld) 21.8 % 19-41 [facility] Work Phone: Blood monocytes/100 leukocyt eson 04-06-2022 Monocytes/100 WBC (Bld) 11.5 % 0-[address] [facility] Work Phone: Blood platelet mean volumeon 04-06-2022 Platelet mean volume (Bld) [Entitic vol] 9.7 fL 6.2-12.0 [facility] Work Phone: Determination of erythrocyte mean corpuscular volume (MCV)on 04-06-2022 MCV (RBC) [Entitic vol] 94.6 fL 80-[address] [facility] Work Phone: Hematocrit Auto (Bld) [Volum e fraction]on 04-06-2022 Hematocrit (Bld) [Volume fraction] 24.5 % 40-54 [facility] Work Phone: INR in Blood by Coagulation assayon 04-06-2022 INR Coag (Bld) [Relative time] 3.7 {INR} [facility] Work Phone: Laboratory - Chemistry and C hemistry - challengeon 04-06-2022 CO2 [Moles/Vol] 25.0 mmol/L 21.0-32.0 [facility] Work Phone: Urea nitrogen/Creatinine [Mass ratio] 10.1 mg/mg 10-20 [facility] Work Phone: Laboratory - Coagulationon 0 04-06-2022 PT Coag (PPP) [Time] 36.5 s 11.7-14.[address] [facility] Work Phone: Laboratory - Hematology and Cell countson 04-06-2022 Erythrocyte distribution width (RBC) [Entitic vol] 49.9 fL 35.1-43.9 [facility] Work Phone: Erythrocyte distribution width (RBC) [Ratio] 14.6 % 11.6-14.6 [facility] Work Phone: Immature granulocytes/100 WBC (Bld) 0.500 % 0.0-0.9 [facility] Work Phone: Comment on above: IG% - Immature Granu locytes (promyelocytes, myelocytes and metamyelocytes) > 1% indicates that a LEFT SHIFT is Present. MCH (RBC) [Entitic mass] 32.0 pg 27.0-32.0 [facility] Work Phone: Nucleated RBC/100 WBC (Bld) [Ratio] 0 % 0-5 [facility] Work Phone: MCHC Auto (RBC) [Mass/Vol]on 04-06-2022 MCHC (RBC) [Mass/Vol] 33.9 g/dL 32-36 [facility] Work Phone: No Panel Informationon 04-06 Estimated Creatinine Clearance Calc 12.66 ml/min [facility] Work Phone: Estimated GFR (MDRD) Amer 15 mL/min >60 [facility] Work Phone: Comment on above: GFR Calc Estimated GFR (MDRD) Non-Af Amer 13 mL/min >60 [facility] Work Phone: Comment on above: Non- GFR Calc Platelets bldon 04-06-2022 Platelets (Bld) [#/Vol] 131 10*3/uL 150-450 [facility] Work Phone: Serum or plasma calcium khalif urement (mass/volume)on 04-06-2022 Calcium [Mass/Vol] 9.5 mg/dL 8.5-10.1 [facility] Work Phone: Serum or plasma creatinine m easurement (mass/volume)on 04-06-2022 Creatinine [Mass/Vol] 4.86 mg/dL 0.70-1.30 [facility] Work Phone: Comment on above: The validity of the calculated GFR & GFRAA in patients over 70 years has not been determined. Clinical correlation is essential. Serum or plasma urea nitroge n measurement (mass/volume)on 04-06-2022 Urea nitrogen [Mass/Vol] 49 mg/dL 06-05 [facility] Work Phone: Thin prep Papanicolaou smear with manual screeningon 04-06-2022 Thin prep Papanicolaou smear with manual screening 04-02 [facility] Work Phone: Basophil percentageon 2021 Basophil percentage 4.2 mg/dL 2.5-4.9 [facility] Work Phone: Laboratory - Chemistry and C hemistry - challengeon 04-05-2022 Magnesium [Mass/Vol] 1.8 mg/dL 1.6-2.6 [facility] Work Phone: Lower GI hemoglobin IA Ql (S tl)on 04-04-2022 Stool Occult Blood (SANDRA) Positive [facility] Work Phone: INR in Blood by Coagulation assayon 04-03-2022 INR Coag (Bld) [Relative time] 4.3 {INR} [facility] Work Phone: Comment on above: CRITICAL VALUE VERIF IED. CALLED TO KOYIAFD60/16/22 0849 Shana Herman.RESULTS READ BACK BY SAME . Laboratory - Coagulationon 0 04-03-2022 PT Coag (PPP) [Time] 41.2 s 11.7-14.9 [facility] Work Phone: INR in Blood by Coagulation assayon 03-03-2022 INR Coag (Bld) [Relative time] 3.1 {INR} [facility] Work Phone: Laboratory - Coagulationon 0 4-15-2022 PT Coag (PPP) [Time] 31.8 s 11.7-14.9 [facility] Work Phone: INR in Blood by Coagulation assayon 02-17-2022 INR Coag (Bld) [Relative time] 2.8 {INR} [facility] Work Phone: Laboratory - Coagulationon 0 02-17-2022 PT Coag (PPP) [Time] 28.7 s 11.7-14.9 [facility] Work Phone: INR in Blood by Coagulation assayon 02-10-2022 INR Coag (Bld) [Relative time] 2.6 {INR} [facility] Work Phone: Laboratory - Coagulationon 0 02-10-2022 PT Coag (PPP) [Time] 27.1 s 11.7-14.9 [facility] Work Phone: Basophil percentageon 2021 Ammonia (P) [Moles/Vol] 50.0 umol/L 11-32 [facility] Work Phone: INR in Blood by Coagulation assayon 01-16-2022 INR Coag (Bld) [Relative time] 2.0 {INR} [facility] Work Phone: Laboratory - Coagulationon 0 01-16-2022 PT Coag (PPP) [Time] 22.0 s 11.7-14.9 [facility] Work Phone: No Panel Informationon 01-16 Levetiracetam (Keppra) Level 31.9 ug/mL [facility] Work Phone: Comment on above: Performed at: [address] [id number] Director: Kenny Akbar MD, Phone: [phone] Absolute lymphocyte counton 01-12-2022 Lymphocytes Auto (Unsp spec) [#/Vol] 1.10 10*3/uL 0.83-4.51 [facility] Work Phone: Basophil percentageon 2021 Basophils/100 WBC (Bld) 0.4 % 0-[address] [facility] Work Phone: Bilirubin [Mass/Vol] 2.10 mg/dL 0.20-1.00 [facility] Work Phone: Comment on above: For patients on eltr ombopag therapy, use of Dimension [place] TBIL is not recommended. Chloride [Moles/Vol] 109 mmol/L 98-107 [facility] Work Phone: Eosinophils/100 WBC (Bld) 4.0 % 0-5 [facility] Work Phone: Glucose [Mass/Vol] 98 mg/dL 74-106 [facility] Work Phone: [phone] Neutrophils (Bld) [#/Vol] 3.5 10*3/uL 2.0-7.7 [facility] Work Phone: Neutrophils/100 WBC (Bld) 63.4 % 47-70 [facility] Work Phone: [phone] Potassium [Moles/Vol] 3.5 mmol/L 3.5-5.1 [facility] Work Phone: Protein [Mass/Vol] 6.4 g/dL 6.4-8.2 [facility] Work Phone: [phone] Sodium [Moles/Vol] 143 mmol/L 136-145 [facility] Work Phone: [phone] WBC (Bld) [#/Vol] 5.5 10*3/uL 4.4-11.0 [facility] Work Phone: [phone] Blood erythrocytes count (nu mber/volume)on 01-12-2022 RBC (Bld) [#/Vol] 3.76 10*6/uL 4.6-6.2 [facility] Work Phone: [phone] Blood hemoglobin measurement (mass/volume)on 01-12-2022 Hemoglobin (Bld) [Mass/Vol] 12.2 g/dL 13.0-16.5 [facility] Work Phone: Blood lymphocytes/100 leukoc yteson 01-12-2022 Lymphocytes/100 WBC (Bld) 20.1 % 19-41 [facility] Work Phone: Blood monocytes/100 leukocyt eson 01-12-2022 Monocytes/100 WBC (Bld) 11.9 % 0-[address] [facility] Work Phone: Blood platelet adequacy dete ction by light microscopyon 01-12-2022 Platelets LM Ql (Bld) MOD [facility] Work Phone: Blood platelet mean volumeon 01-12-2022 Platelet mean volume (Bld) [Entitic vol] 11.8 fL 6.2-12.0 [facility] Work Phone: Determination of erythrocyte mean corpuscular volume (MCV)on 01-12-2022 MCV (RBC) [Entitic vol] 99.5 fL 80-[address] [facility] Work Phone: Hematocrit Auto (Bld) [Volum e fraction]on 01-12-2022 Hematocrit (Bld) [Volume fraction] 37.4 % 40-54 [facility] Work Phone: INR in Blood by Coagulation assayon 01-12-2022 INR Coag (Bld) [Relative time] 2.9 {INR} [facility] Work Phone: Laboratory - Chemistry and C hemistry - challengeon 01-12-2022 ALP [Catalytic activity/Vol] 239 U/L 45-117 [facility] Work Phone: ALT [Catalytic activity/Vol] 29 U/L 16-61 [facility] Work Phone: CO2 [Moles/Vol] 27.0 mmol/L 21.0-32.0 [facility] Work Phone: Globulin (S) [Mass/Vol] 3.7 g/dL 2.2-4.[address] [facility] Work Phone: Urea nitrogen/Creatinine [Mass ratio] 14.0 mg/mg 10-20 [facility] Work Phone: Laboratory - Coagulationon 0 01-12-2022 PT Coag (PPP) [Time] 29.2 s 11.7-14.9 [facility] Work Phone: Laboratory - Hematology and Cell countson 01-12-2022 Anisocytosis Ql (Bld) 2+ [facility] Work Phone: Erythrocyte distribution width (RBC) [Entitic vol] 74.4 fL 35.1-43.9 [facility] Work Phone: Erythrocyte distribution width (RBC) [Ratio] 20.3 % 11.6-14.6 [facility] Work Phone: Immature granulocytes/100 WBC (Bld) 0.200 % 0.0-0.9 [facility] Work Phone: Comment on above: IG% - Immature Granu locytes (promyelocytes, myelocytes and metamyelocytes) > 1% indicates that a LEFT SHIFT is Present. MCH (RBC) [Entitic mass] 32.4 pg 27.0-32.0 [facility] Work Phone: Nucleated RBC/100 WBC (Bld) [Ratio] 0 % 0-5 [facility] Work Phone: MCHC Auto (RBC) [Mass/Vol]on 01-12-2022 MCHC (RBC) [Mass/Vol] 32.6 g/dL 32-36 [facility] Work Phone: No Panel Informationon 01-12 Estimated Creatinine Clearance Calc 27.35 ml/min [facility] Work Phone: Estimated GFR (MDRD) Amer 33 mL/min >60 [facility] Work Phone: Comment on above: GFR Calc Estimated GFR (MDRD) Non-Af Amer 27 mL/min >60 [facility] Work Phone: Comment on above: Non- GFR Calc Platelets bldon 01-12-2022 Platelets (Bld) [#/Vol] 87 10*3/uL 150-[address] [facility] Work Phone: Serum or plasma albumin khalif urement (mass/volume)on 01-12-2022 Albumin [Mass/Vol] 2.7 g/dL 3.2-5.0 [facility] Work Phone: Serum or plasma albumin/glob ulin mass ratioon 01-12-2022 Albumin/Globulin [Mass ratio] 0.7 {ratio} 0.9-2.4 [facility] Work Phone: Serum or plasma calcium khalif urement (mass/volume)on 01-12-2022 Calcium [Mass/Vol] 8.8 mg/dL 8.5-10.1 [facility] Work Phone: Serum or plasma creatinine m easurement (mass/volume)on 01-12-2022 Creatinine [Mass/Vol] 2.50 mg/dL 0.70-1.30 [facility] Work Phone: Comment on above: The validity of the calculated GFR & GFRAA in patients over 70 years has not been determined. Clinical correlation is essential. Serum or plasma urea nitroge n measurement (mass/volume)on 01-12-2022 Urea nitrogen [Mass/Vol] 35 mg/dL 7-18 [facility] Work Phone: Thin prep Papanicolaou smear with manual screeningon 01-12-2022 Thin prep Papanicolaou smear with manual screening 46 U/L 15-37 [facility] Work Phone: Thin prep Papanicolaou smear with manual screening 7 5-15 [facility] Work Phone: Activated partial thrombopla stin time (aPTT) in platelet poor plasma by coagulation aon 01-11-2022 aPTT Coag (PPP) [Time] 218.1 s 24.1-36.2 [facility] Work Phone: Comment on above: CRITICAL VALUE VERIF IED. CALLED TO Eileen FINNEY RN ICU01/11/22 0447 Robert Odonnell.RESULTS READ BACK BY SAME. Basophil percentageon 2021 Basophil percentage 0-5 SEEN /hpf [facility] Work Phone: Ammonia (P) [Moles/Vol] 46.0 umol/L 11-32 [facility] Work Phone: Bilirubin Test strip Ql (U)o n 01-11-2022 Bilirubin Ql (U) 1 mg/dL Negative [facility] Work Phone: Comment on above: COLOR OF URINE MAY A FFECT DIPSTICK RESULTS. Ketones Test strip Ql (U)on 01-11-2022 Ketones Ql (U) Negative Negative [facility] Work Phone: Laboratory - Chemistry and C hemistry - challengeon 01-11-2022 Natriuretic peptide B (Bld) [Mass/Vol] 1573.3 pg/mL 0-100 [facility] Work Phone: Mucus LM Ql (Urine sed)on Mucus Ql (Urine sed) 0 SEEN /hpf [facility] Work Phone: Nitrite Test strip Ql (U)on 01-11-2022 Nitrite Ql (U) Negative Negative [facility] Work Phone: No Panel Informationon 01-11 Thyroid Stimulating Hormone (TSH) 1.42 uIU/mL 0.358-3.74 [facility] Work Phone: Streptococcus pneumoniae Antigen (M [facility] Work Phone: Protein Test strip Ql (U)on 01-11-2022 Protein Ql (U) 30 mg/dl Negative [facility] Work Phone: Serum procalcitonin measurem enton 01-11-2022 Procalcitonin [Mass/Vol] 0.83 ng/mL 0.00-0.09 [facility] Work Phone: Comment on above: A procalcitonin [...] (Urine sed) 0-5 SEEN /hpf [facility] Work Phone: Urine blood detectionon 12-21 RBC Ql (U) 25 /ul Negative [facility] Work Phone: RBC Ql (U) 0-5 SEEN /hpf [facility] Work Phone: Urine clarityon 01-11-2022 Clarity (U) Clear Clear [facility] Work Phone: Urine color determinationon 01-11-2022 Color (U) Jaelyn Yellow [facility] Work Phone: Urine glucose detectionon Glucose Ql (U) Normal mg/dl Normal [facility] Work Phone: Urine leukocyte esterase det ection by dipstickon 01-11-2022 Leukocyte esterase Test strip Ql (U) 25 /ul Negative [facility] Work Phone: Urine pHon 01-11-2022 pH (U) 5.0 [pH] [facility] Work Phone: Urine sediment bacteria coun t by microscopy (number/high power field)on 01-11-2022 Bacteria LM.HPF (Urine sed) [#/Area] RARE /hpf None Seen [facility] Work Phone: Urine specific gravity measu rementon 01-11-2022 Specific gravity (U) [Rel density] 1.025 [facility] Work Phone: Urobilinogen Auto test strip Ql (U)on 01-11-2022 Urobilinogen Ql (U) Normal mg/dl Normal [facility] Work Phone: Basophil percentageon 2021 Lactate [Moles/Vol] 1.2 mmol/L 0.4-2.0 [facility] Work Phone: Basophil percentage 2.4 mg/dL 2.5-4.9 [facility] Work Phone: Blood poikilocytosis detecti on by light microscopyon 01-10-2022 Poikilocytosis LM Ql (Bld) 1+ [facility] Work Phone: Laboratory - Chemistry and C hemistry - challengeon 01-10-2022 Lipase [Catalytic activity/Vol] 109 U/L 73-393 [facility] Work Phone: Magnesium [Mass/Vol] 1.6 mg/dL 1.6-2.6 [facility] Work Phone: Comment on above: Slight Hemolysis, Re sult may be falsely increased. Laboratory - Microbiology an d Antimicrobial susceptibilityon 01-10-2022 Bacteria identified Cx Nom (Bld) No growth in 5 days. [facility] Work Phone: No Panel Informationon 01-10 Methicillin-Resist S.aureus DNA PCR Negative Negative [facility] Work Phone: SARS-CoV-2 Antigen (Rapid) [facility] Work Phone: Troponin I High Sensitivity 41 pg/mL 3.0-78.0 [facility] Work Phone: Comment on above: Please Note: New Nichole t Units and Gender Specific Reference Ranges. For more information see Policy Stat Procedure [place] High Sensitivity Troponin (TNIH) and attachments. Ovalocyte detectionon 2021 Ovalocytes LM Ql (Bld) 1+ [facility] Work Phone: No Panel Informationon 01-09 Free Lambda Light Chains, Quant 54.5 mg/L [facility] Work Phone: Vitamin D 25-Hydroxy 52.6 ng/mL [facility] Work Phone: Comment on above: Vitamin D 25(OH) Sta tus Range Deficiency <20 ng/mL (50nmol/L) Insufficiency 20 - 30 ng/mL (50 - 75 nmol/L) Sufficiency 30 - 100 ng/mL (75 - 250 nmol/L) Toxicity >100 ng/mL (>250 nmol/L) Whole Blood Vitamin B1 Level 166.3 nmol/L [facility] Work Phone: Comment on above: Performed at: [address] [id number] Director: Zen Joshi PhD, Phone: [phone] at: [facility] [address] [id number] Director: Kenny Akbar MD, Phone: [phone] Serum immunoglobulin kappa l ight chains/immunoglobulin lambda light chains mass ratioon 01-09-2022 Immunoglobulin light chains.kappa/Immunoglob ulin light chains.lambda (S) [Mass ratio] 1.85 [facility] Work Phone: Serum or plasma immunoglobul in kappa light chains measurement (mass/volume)on 01-09-2022 Immunoglobulin light chains.kappa [Mass/Vol] 100.9 mg/L [facility] Work Phone: Basophil percentageon 2021 Potassium [Moles/Vol] 3.2 mmol/L 3.5-5.1 [facility] Work Phone: Absolute lymphocyte counton 12-20-2021 Lymphocytes Auto (Unsp spec) [#/Vol] 1.08 10*3/uL 0.83-4.51 [facility] Work Phone: Basophil percentageon 2021 Basophils/100 WBC (Bld) 0.7 % 0-[address] [facility] Work Phone: Bilirubin [Mass/Vol] 2.50 mg/dL 0.20-1.00 [facility] Work Phone: Comment on above: For patients on eltr ombopag therapy, use of Dimension [place] TBIL is not recommended. Chloride [Moles/Vol] 99 mmol/L 98-107 [facility] Work Phone: Eosinophils/100 WBC (Bld) 4.7 % 0-5 [facility] Work Phone: Glucose [Mass/Vol] 83 mg/dL 74-106 [facility] Work Phone: Neutrophils (Bld) [#/Vol] 2.2 10*3/uL 2.0-7.7 [facility] Work Phone: Neutrophils/100 WBC (Bld) 54.0 % 47-70 [facility] Work Phone: Potassium [Moles/Vol] 2.8 mmol/L 3.5-5.1 [facility] Work Phone: Protein [Mass/Vol] 7.1 g/dL 6.4-8.2 [facility] Work Phone: Sodium [Moles/Vol] 136 mmol/L 136-145 [facility] Work Phone: WBC (Bld) [#/Vol] 4.0 10*3/uL 4.4-11.0 [facility] Work Phone: Blood erythrocytes count (nu mber/volume)on 12-20-2021 RBC (Bld) [#/Vol] 3.95 10*6/uL 4.6-6.2 [facility] Work Phone: Blood hemoglobin measurement (mass/volume)on 12-20-2021 Hemoglobin (Bld) [Mass/Vol] 12.4 g/dL 13.0-16.5 [facility] Work Phone: Blood lymphocytes/100 leukoc yteson 12-20-2021 Lymphocytes/100 WBC (Bld) 26.9 % 19-41 [facility] Work Phone: Blood monocytes/100 leukocyt eson 02-01-2022 Monocytes/100 WBC (Bld) 13.2 % 0-[address] [facility] Work Phone: Blood platelet mean volumeon 12-20-2021 Platelet mean volume (Bld) [Entitic vol] 10.9 fL 6.2-12.0 [facility] Work Phone: Determination of erythrocyte mean corpuscular volume (MCV)on 12-20-2021 MCV (RBC) [Entitic vol] 95.7 fL 80-[address] [facility] Work Phone: Direct bilirubinon 2 Bilirubin.direct [Mass/Vol] 1.28 mg/dL 0.00-0.30 [facility] Work Phone: Hematocrit Auto (Bld) [Volum e fraction]on 12-20-2021 Hematocrit (Bld) [Volume fraction] 37.8 % 40-54 [facility] Work Phone: Iron measurement (mass/mass) on 12-20-2021 Iron (Unsp spec) [Mass/Mass] 95 ug/dL 65-175 [facility] Work Phone: Laboratory - Chemistry and C hemistry - challengeon 12-20-2021 ALP [Catalytic activity/Vol] 236 U/L 45-117 [facility] Work Phone: ALT [Catalytic activity/Vol] 23 U/L 16-61 [facility] Work Phone: CO2 [Moles/Vol] 33.0 mmol/L 21.0-32.0 [facility] Work Phone: Globulin (S) [Mass/Vol] 4.0 g/dL 2.2-4.[address] [facility] Work Phone: Urea nitrogen/Creatinine [Mass ratio] 10.3 mg/mg 10-20 [facility] Work Phone: Laboratory - Hematology and Cell countson 12-20-2021 Erythrocyte distribution width (RBC) [Entitic vol] 62.1 fL 35.1-43.9 [facility] Work Phone: Erythrocyte distribution width (RBC) [Ratio] 18.7 % 11.6-14.6 [facility] Work Phone: Immature granulocytes/100 WBC (Bld) 0.500 % 0.0-0.9 [facility] Work Phone: Comment on above: IG% - Immature Granu locytes (promyelocytes, myelocytes and metamyelocytes) > 1% indicates that a LEFT SHIFT is Present. MCH (RBC) [Entitic mass] 31.4 pg 27.0-32.0 [facility] Work Phone: Nucleated RBC/100 WBC (Bld) [Ratio] 0 % 0-5 [facility] Work Phone: MCHC Auto (RBC) [Mass/Vol]on 12-20-2021 MCHC (RBC) [Mass/Vol] 32.8 g/dL 32-36 [facility] Work Phone: No Panel Informationon 12-20 Estimated GFR (MDRD) Amer 79 mL/min >60 [facility] Work Phone: Comment on above: GFR Calc Estimated GFR (MDRD) Non-Af Amer 66 mL/min >60 [facility] Work Phone: Comment on above: Non- GFR Calc Parathyroid Hormone (Intact) 93.7 pg/mL 18.4-80.1 [facility] Work Phone: Total Iron Binding Capacity 315 ug/dL 250-450 [facility] Work Phone: Platelets bldon 12-20-2021 Platelets (Bld) [#/Vol] 88 10*3/uL 150-[address] [facility] Work Phone: Serum or plasma albumin khalif urement (mass/volume)on 12-20-2021 Albumin [Mass/Vol] 3.1 g/dL 3.2-5.0 [facility] Work Phone: Serum or plasma calcium khalif urement (mass/volume)on 12-20-2021 Calcium [Mass/Vol] 8.4 mg/dL 8.5-10.1 [facility] Work Phone: Serum or plasma creatinine m easurement (mass/volume)on 12-20-2021 Creatinine [Mass/Vol] 1.16 mg/dL 0.70-1.30 [facility] Work Phone: Comment on above: The validity of the calculated GFR & GFRAA in patients over 70 years has not been determined. Clinical correlation is essential. Serum or plasma iron saturat ion measurement (mass fraction)on 12-20-2021 Iron saturation [Mass fraction] 30.2 % 15.0-55.0 [facility] Work Phone: Serum or plasma urea nitroge n measurement (mass/volume)on 12-20-2021 Urea nitrogen [Mass/Vol] 12 mg/dL 7-18 [facility] Work Phone: Thin prep Papanicolaou smear with manual screeningon 12-20-2021 Thin prep Papanicolaou smear with manual screening 44 U/L 15-37 [facility] Work Phone: Thin prep Papanicolaou smear with manual screening 4 5-15 [facility] Work Phone: INR in Blood by Coagulation assayon 12-14-2021 INR Coag (Bld) [Relative time] 2.6 {INR} [facility] Work Phone: Laboratory - Coagulationon 0 12-14-2021 PT Coag (PPP) [Time] 27.0 s 11.7-14.9 [facility] Work Phone: Basophil percentageon 2021 Basophil percentage 4.0 mg/dL 2.5-4.9 [facility] Work Phone: Chloride [Moles/Vol] 113 mmol/L 98-107 [facility] Work Phone: Glucose [Mass/Vol] 122 mg/dL 74-106 [facility] Work Phone: Comment on above: Fasting Glucose resu lt from 100 to 125 mg/dL suggests IMPAIRED HOMEOSTASIS per A.D.A. criteria.Please note revised GLUCOSE reference range effective 2017. Potassium [Moles/Vol] 3.5 mmol/L 3.5-5.1 [facility] Work Phone: Sodium [Moles/Vol] 144 mmol/L 136-145 [facility] Work Phone: Laboratory - Chemistry and C hemistry - challengeon 11-30-2021 CO2 [Moles/Vol] 21.0 mmol/L 21.0-32.0 [facility] Work Phone: Urea nitrogen/Creatinine [Mass ratio] 16.7 mg/mg 10-20 [facility] Work Phone: No Panel Informationon 11-30 Estimated GFR (MDRD) Amer 29 mL/min >60 [facility] Work Phone: Comment on above: GFR Calc Estimated GFR (MDRD) Non-Af Amer 24 mL/min >60 [facility] Work Phone: Comment on above: Non- GFR Calc Serum or plasma albumin khalif urement (mass/volume)on 11-30-2021 Albumin [Mass/Vol] 3.3 g/dL 3.2-5.0 [facility] Work Phone: Serum or plasma calcium khalif urement (mass/volume)on 11-30-2021 Calcium [Mass/Vol] 10.3 mg/dL 8.5-10.1 [facility] Work Phone: Serum or plasma creatinine m easurement (mass/volume)on 11-30-2021 Creatinine [Mass/Vol] 2.82 mg/dL 0.70-1.30 [facility] Work Phone: Comment on above: The validity of the calculated GFR & GFRAA in patients over 70 years has not been determined. Clinical correlation is essential. Serum or plasma urea nitroge n measurement (mass/volume)on 11-30-2021 Urea nitrogen [Mass/Vol] 47 mg/dL 7-18 [facility] Work Phone: Urine creatinine measurement (mass/volume)on 11-30-2021 Creatinine (U) [Mass/Vol] 197.00 mg/dL NO RANGE EST. [facility] Work Phone: Basophil percentageon 2021 Ammonia (P) [Moles/Vol] 53.0 umol/L 11-32 [facility] Work Phone: 24 hour urine protein measur ement (mass/time)on 11-28-2021 Protein (24H U) [Mass/Time] 318.8 mg/24HR 0-151 [facility] Work Phone: 24 hour urine protein measur ement (mass/volume)on 11-28-2021 Protein (24H U) [Mass/Vol] 85.0 mg/dL 0.0-11.8 [facility] Work Phone: Creatinine clearanceon 11-28 Creatinine renal clearance Unsp time (U+S/P) [Vol/Time] 19 ml/min 100-200 [facility] Work Phone: Laboratory - Specimen inform ationon 11-28-2021 Collection duration (U) 24.0 HOURS 24.0-24.[address] [facility] Work Phone: No Panel Informationon 11-28 Timed Urine Volume 375 mL [facility] Work Phone: Basophil percentageon 2021 Chloride [Moles/Vol] 105 mmol/L 98-107 [facility] Work Phone: Glucose [Mass/Vol] 131 mg/dL 74-106 [facility] Work Phone: Comment on above: Fasting Glucose resu lt greater than or equal to 126 mg/dL suggests DIABETES MELLITUS per A.D.A. criteria.Please note revised GLUCOSE reference range effective 2017. Potassium [Moles/Vol] 3.6 mmol/L 3.5-5.1 [facility] Work Phone: Sodium [Moles/Vol] 139 mmol/L 136-145 [facility] Work Phone: Laboratory - Chemistry and C hemistry - challengeon 11-21-2021 CO2 [Moles/Vol] 25.0 mmol/L 21.0-32.0 [facility] Work Phone: Urea nitrogen/Creatinine [Mass ratio] 13.4 mg/mg 10-20 [facility] Work Phone: No Panel Informationon 11-21 Estimated GFR (MDRD) Amer 32 mL/min >60 [facility] Work Phone: Comment on above: GFR Calc Estimated GFR (MDRD) Non-Af Amer 27 mL/min >60 [facility] Work Phone: Comment on above: Non- GFR Calc Serum or plasma calcium khalif urement (mass/volume)on 11-21-2021 Calcium [Mass/Vol] 10.5 mg/dL 8.5-10.1 [facility] Work Phone: Serum or plasma creatinine m easurement (mass/volume)on 11-21-2021 Creatinine [Mass/Vol] 2.53 mg/dL 0.70-1.30 [facility] Work Phone: Comment on above: The validity of the calculated GFR & GFRAA in patients over 70 years has not been determined. Clinical correlation is essential. Serum or plasma urea nitroge n measurement (mass/volume)on 11-21-2021 Urea nitrogen [Mass/Vol] 34 mg/dL 7-18 [facility] Work Phone: Thin prep Papanicolaou smear with manual screeningon 11-21-2021 Thin prep Papanicolaou smear with manual screening 9 5-15 [facility] Work Phone: INR in Blood by Coagulation assayon 11-16-2021 INR Coag (Bld) [Relative time] 3.5 {INR} [facility] Work Phone: Laboratory - Coagulationon 1 PT Coag (PPP) [Time] 34.5 s 11.7-14.9 [facility] Work Phone: CNPNon 09-14-2021 [facility] Telephone (CARDMN) -------- CHRISTIAN AMADOR ([id number]) 1950 M Date Time Provider Department 08/02/21 ALFONSO DAHL During your visit today, we recorded the following information about you: Laverne Weber [facility] 08/02/2021 5:14 PM Addendum Patient referred to Dr. Dahl from [facility], [place], [place], Dr. Jeff Grullon. Records Scanned into Plan Me Up Request sent to the appointment center to schedule patient. Laverne Tia [facility] Allergies As of Date: 08/02/2021 (No Known Allergies) Date Reviewed: 08/06/2020 Reviewed by: Rachael GuRn) GIO Forrest - Fully Assessed Reason for Visit: Received Outside Medical Records [[id number]] Prescriptions as of 08/02/2021 - calcitriol (ROCALTROL) [...] Status:Closed by LAVERNE DAVISON on 08/02/21 Normal [facility] INR in Blood by Coagulation assayon 06-03-2021 INR Coag (Bld) [Relative time] 3.0 {INR} [facility] Laboratory - Coagulationon 0 06-03-2021 PT Coag (PPP) [Time] 30.4 s 11.7-14.9 [facility] Erythrocyte distribution wid th standard deviationon 12-31-2018 Erythrocyte distribution width (RBC) [Entitic vol] 52.8 fL High 35.1-43.9 [facility] Laboratory - Hematology and Cell countson 12-31-2018 Erythrocyte distribution width (RBC) [Ratio] 14.8 % 11.6-14.6 [facility] No Panel Informationon 12-31 14.8 % High 11.6-14.6 [facility] Total cell counton 9 Cells counted [employer] (Bld/Tiss) [#] Not Reportable [facility] No Panel Informationon 08-13 Stool Occult Blood (SANDRA) Positive [facility] Positive Abnormal [facility] No Panel Informationon 06-18 Positive Abnormal [facility] Coumadin Management: Valery Loaizaon 10-09-2017 INR Coag RelTime (Bld) 2.5 to 3.5 Invalid Interpretation Code [facility] Work Phone: [phone] Lab Report: Prothrombin Time w/INRon 10-08-2017 INR Coag RelTime (PPP) 2.4 {INR} Invalid Interpretation Code [facility] Work Phone: [phone] Prothrombin time (PT) Coag time (PPP) 25.3 s High 11.7-14.9 [facility] Work Phone: [phone] Coumadin Management: Valery rod Calcon 09-20-2017 INR Coag RelTime (Bld) Hospital lab Invalid Interpretation Code [facility] Work Phone: [phone] INR Coag RelTime (Bld) 2.5 to 3.5 Invalid Interpretation Code [facility] Work Phone: [phone] INR Coag RelTime (PPP) 3.5 {INR} Invalid Interpretation Code [facility] Work Phone: [phone] Prothrombin time (PT) Coag time (PPP) 33.8 s Invalid Interpretation Code [facility] Work Phone: [phone] Lab Report: Prothrombin Time w/INRon 09-20-2017 Prothrombin time (PT) Coag time (PPP) 33.8 s High 11.7-14.9 [facility] Work Phone: [phone] Replaced Document: Uric Acid on 08-08-2017 Urate 9.1 mg/dL High 3.5-7.2 [facility] Work Phone: [phone] Office Visiton 07-16-2017 Dietary management education, guidance, and counseling (procedure) yes Invalid Interpretation Code [facility] Work Phone: [phone] Documentation of current medications (procedure) Done Invalid Interpretation Code [facility] Work Phone: [phone] Fall risk assessment No Invalid Interpretation Code [facility] Work Phone: [phone] Tobacco use CPHS Never smoker Invalid Interpretation Code [facility] Work Phone: [phone] Lab Report: BNP,B-Type NATRI URETIC PEPTIDEon 05-02-2017 BNP 410.2 pg/mL High 0-100 [facility] Work Phone: [phone] Lab Report: Basic Metabolic Profile (BMP)on 05-02-2017 Anion gap 8 mmol/L Invalid Interpretation Code 5-15 [facility] Work Phone: [phone] BUN/Creatinine Ratio 18.4 RATIO Invalid Interpretation Code 10-20 [facility] Work Phone: [phone] Calcium 9.0 mg/dL Invalid Interpretation Code 8.5-10.1 [facility] Work Phone: [phone] Chloride 105 mmol/L Invalid Interpretation Code 98-107 [facility] Work Phone: [phone] CO2 24.0 mmol/L Invalid Interpretation Code 21.0-32.0 [facility] Work Phone: [phone] Creatinine 1.96 mg/dL High 0.70-1.30 [facility] Work Phone: [phone] eGFR (non-black) 44 mL/min/{1.73_m2} Low >60 [facility] Work Phone: [phone] eGFR (non-black) 36 mL/min/{1.73_m2} Low >60 [facility] Work Phone: [phone] Glucose mass conc 94 mg/dL Invalid Interpretation Code 70-110 [facility] Work Phone: [phone] Potassium molar conc 4.4 mmol/L Invalid Interpretation Code 3.5-5.1 [facility] Work Phone: [phone] Sodium 137 mmol/L Invalid Interpretation Code 136-145 [facility] Work Phone: [phone] Urea nitrogen 36 mg/dL High 7-18 [facility] Work Phone: [phone] Lab Report: CBC W/Diff, Auto matedon 05-02-2017 Absolute Neut 3.4 X10 3/UL Invalid Interpretation Code 2.0-7.7 [facility] Phone: [phone] Basophils/100 WBC Auto (Bld) 0.5 % Invalid Interpretation Code 0-1 [facility] Work Phone: [phone] Eosinophils/100 leukocytes 3.9 % Invalid Interpretation Code 0-5 [facility] Work Phone: Erythrocyte distribution width Auto Ratio (RBC) 14.8 % High 11.6-14.6 [facility] Work Phone: [phone] Erythrocytes (RBC) 3.77 10*6/uL Low 4.6-6.[address] [facility] Work Phone: [phone] Hematocrit (HCT) 36.8 % Low 40-54 [facility] Work Phone: [phone] Hemoglobin mass conc (Bld) 12.0 g/dL Low 13.0-16.5 [facility] Work Phone: [phone] Immature granulocytes/100 WBC (Bld) 0.200 % Invalid Interpretation Code 0.0-0.9 [facility] Work Phone: [phone] Lymphocytes 1.49 X10 3/UL Invalid Interpretation Code 0.83-4.51 [facility] Work Phone: [phone] Lymphocytes/100 leukocytes 25.5 % Invalid Interpretation Code 19-41 [facility] Work Phone: [phone] MCH 31.8 pg Invalid Interpretation Code 27.0-32.0 [facility] Work Phone: [phone] MCHC mass conc (RBC) 32.6 G/GL Invalid Interpretation Code 32-36 [facility] Work Phone: [phone] MCV 97.6 fL High 80-94 [facility] Work Phone: [phone] Monocytes/100 leukocytes 12.5 % High 0-10 [facility] Work Phone: [phone] Neutrophils/100 WBC Auto (Bld) 57.4 % Invalid Interpretation Code 47-70 [facility] Work Phone: [phone] Platelets 117 10*3/mm3 Low 150-450 [facility] Work Phone: [phone] PMV by Tao 10.8 fL Invalid Interpretation Code 6.2-12.0 [facility] Work Phone: RDW SD 53.3 fL High 35.1-43.9 [facility] Work Phone: WBC (Leukocytes) 5.9 10*3/uL Invalid Interpretation Code 4.4-11.0 [facility] Work Phone: [phone] Lab Report: T4 Total, Thyrox inon 05-02-2017 Thyroxine (T4) 7.8 ug/dL Invalid Interpretation Code 4.5-12.1 [facility] Work Phone: [phone] Lab Report: Thyroid Stim Hor radha (TSH)on 05-02-2017 Thyroid stimulating hormone (TSH) 2.38 u[iU]/mL Invalid Interpretation Code 0.358-3.74 [facility] Work Phone: [phone]) Lab Report: PTH,INTACTon Parathyrin intact (PTH) 186 pg/mL High 14-72 [facility] Work Phone: [phone]) Lab Report: Vitamin D,25 Hyd roxyon 04-11-2017 Vitamin D 25-OH 28.0 ng/mL Invalid Interpretation Code [facility] Work Phone: [phone] Lab Report: Renal Profileon 04-10-2017 Albumin 3.6 g/dL Invalid Interpretation Code 3.4-5.0 [facility] Work Phone: [phone] PHOS 2.4 mg/dL Low 2.5-4.9 [facility] Work Phone: [phone] Lab Report: Comprehensive Me tabolic Profilon 02-19-2017 Alanine aminotransferase (ALT) 42 U/L Invalid Interpretation Code 12-78 [facility] Work Phone: [phone] Albumin/Globulin Ratio 1 {ratio} Invalid Interpretation Code 0.9-2.4 [facility] Work Phone: [phone] Alkaline phosphatase (ALP) 173 U/L High 45-117 [facility] Work Phone: [phone] Aspartate aminotransferase (AST) 40 U/L High 15-37 [facility] Work Phone: [phone] Bilirubin (total) 1.10 mg/dL High 0.20-1.00 [facility] Work Phone: [phone] Globulin 4.3 g/dL High 2.3-3.5 [facility] Work Phone: [phone] Protein 8.5 g/dL High 6.4-8.2 [facility] Work Phone: [phone] Lab Report: LDHon 02-19-2017 LDH 344 U/L High 87-241 [facility] Work Phone: [phone] Lab Report: Magnesiumon 04-0 Magnesium 2.3 mg/dL Invalid Interpretation Code 1.8-2.4 [facility] Phone: [phone] Lab Report: PSA,Total- Diagn osticon 02-19-2017 PSA, DIAGNOSTIC 4.73 ng/mL High 0.0-4.0 [facility] Work Phone: [phone] Office Visit: 6 MO - LABSon 02-19-2017 Tobacco smoking status NHIS Never Invalid Interpretation Code [facility] Work Phone: [phone] Clinical Lists Update: Prelo meat hostess 12-13-2016 Left ventricular Ejection fraction 60 % Invalid Interpretation Code [facility] Phone: [phone] 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 See lab report for original value. [facility] Work Phone: [phone] Lab Report: Erythrocyte Sed Rateon 09-11-2016 Erythrocyte sedimentation rate 41 mm/h High 0-20 [facility] Work Phone: [phone] Lab Report: PSA,Total - Viirdiana al Screenon 09-05-2016 PSA,TOT SCREEN 4.68 ng/mL High 0.00-4.00 [facility] Work Phone: [phone] Microbiology: Culture, Fungu s w/ [id number] 04-05-2016 CUFST . Invalid Interpretation Code [facility] Phone: [phone] Microbiology: Culture, Blood (WB)on 03-12-2016 Bacteria culture BCNo growth in 5 days. Invalid Interpretation Code [facility] Phone: [phone] Microbiology: Culture, Sputu mon 03-10-2016 Bacteria sputum culture . Invalid Interpretation Code [facility] Phone: Lab Report: Basic Metabolic Profile (BMP)on 03-07-2016 Creatinine 34.13 mL/min Invalid Interpretation Code [facility] Work Phone: [phone] Lab Report: CBC W/Diff, Auto matedon 03-07-2016 Pathologist (cervix/vaginal) May foll Invalid Interpretation Code [facility] Work Phone: [phone] SMEAR COMMENT SCANNED Invalid Interpretation Code [facility] Work Phone: [phone] Lab Report: Partial Thrombop last Timeon 03-07-2016 aPTT 62.4 s High 24.1-36.2 [facility] Work Phone: [phone] Replaced Document: M R Staph Aureus DNA by PCRon 03-07-2016 INR Coag RelTime (Bld) Negative Invalid Interpretation Code Negative [facility] Work Phone: [phone] Lab Report: Hemoglobin A1con 03-06-2016 Hemoglobin A1c/Hemoglobin.total mass fraction (Bld) 5.3 % Invalid Interpretation Code 4.2-6.3 [facility] Work Phone: [phone] Lab Report: Lactic Acidon Lactate 1.8 mmol/L Invalid Interpretation Code 0.4-2.0 [facility] Work Phone: Lab Report: CBC W/Diff, Auto matedon 03-05-2016 Anisocytosis presence 3+ Invalid Interpretation Code [facility] Work Phone: MICROCYTES 1+ Invalid Interpretation Code [facility] Work Phone: Lab Report: Prealbuminon Prealbumin 25.3 mg/dL Invalid Interpretation Code 20.0-40.0 [facility] Work Phone: [phone] Lab Report: Prothrombin Time Fingerstickon 03-02-2016 Prothrombin time (PT) Coag time (PPP) 14.7 s High 11.9-14.4 [facility] Work Phone: Office Visiton 01-18-2016 Colonoscopy (procedure) Diverticulosis Invalid Interpretation Code [facility] Work Phone: [phone] Lab Report: Lipid Profileon 12-09-2015 Cholesterol 229 mg/dL High 200 [facility] Work Phone: [phone] HDL Cholesterol 44 mg/dL Invalid Interpretation Code [facility] Work Phone: [phone] LDL Cholesterol 127 mg/dL Invalid Interpretation Code 0-130 [facility] Work Phone: [phone] Triglyceride 291 mg/dL High [facility] Work Phone: [phone] very low density lipoproteins 58 mg/dL High 5-40 [facility] Work Phone: [phone] Lab Report: Liver Profileon 12-09-2015 Bilirubin (direct) 0.18 mg/dL Invalid Interpretation Code 0.00-0.30 [facility] Work Phone: [phone] Office Visit: [facility] 09-13-20 15 General cardiovascular disease 10Y risk [#] Travis'Vesta 27 % Invalid Interpretation Code [facility] Work Phone: [phone] Replaced Document: Mable Elmira CADET Observationson 09-13-2015 EKG QRS axis -96 deg Invalid Interpretation Code [facility] Work Phone: [phone] Interpretation Electronic ventricul ar pacemaker Pacemaker ECG, No further analysis INSUFFICIENT DATA Invalid Interpretation Code [facility] Work Phone: [phone] P [place] 1 deg Invalid Interpretation Code [facility] Work Phone: [phone] ND Interval 0 ms Invalid Interpretation Code [facility] Work Phone: [phone] Pulse (Heart Rate) 71 /min Invalid Interpretation Code [facility] Work Phone: [phone] QRS Duration 144 ms Invalid Interpretation Code [facility] Work Phone: [phone] QT Interval new path ms Invalid Interpretation Code [facility] [facility] Work Phone: [phone] [place] 109 deg Invalid Interpretation Code [facility] Work Phone: [phone] Replaced Document: Mable CADET Observationson 05-08-2013 Pulse (Heart Rate) 532 ms Invalid Interpretation Code [facility] Work Phone: [phone] Office Visiton 10-06-2011 cardiac risk group B Invalid Interpretation Code [employer] Work Phone: [phone] cholesterol, target level 200 mg/dL Invalid Interpretation Code [facility] Work Phone: HDL cholesterol, serum, target level 40 mg/dL Invalid Interpretation Code [facility] Work Phone: [phone] LDL target level 130 mg/dL Invalid Interpretation Code [facility] Work Phone: [phone] triglyceride, target level 150 mg/dL Invalid Interpretation Code [facility] Work Phone: [phone] Stool gastrointestinal hemog lobin detection by immunologic method Stool Occult Blood (SANDRA) Positive [facility] Work Phone: Vital Signs Date Time Vital Sign Value Performing Clinician Facility 06-24-2025 08:45-0400 Body temperature 97.6 [degF] Dr. Castro Ferrara DO Work Phone: [facility] 06-24-2025 08:45-0400 Diastolic blood pressure 52 mm[Hg] Dr. Castro Ferrara DO Work Phone: [facility] 06-24-2025 08:45-0400 Heart rate 71 /min Dr. Castro Ferrara DO Work Phone: [facility] 06-24-2025 08:45-0400 Respiratory rate 22 /min Dr. Castro Ferrara DO Work Phone: [facility] 06-24-2025 08:45-0400 SaO2% (BldA) [Mass fraction] 91 % Dr. Castro Ferrara DO Work Phone: [facility] 06-24-2025 08:45-0400 Systolic blood pressure 135 mm[Hg] Dr. Castro Ferrara DO Work Phone: [facility] 06-23-2025 14:00-0400 Inhaled oxygen flow rate 2 L/min Dr. Castro Ferrara DO Work Phone: [facility] 06-23-2025 10:17-0400 Body height 170.[address] Castro Ferrara DO Work Phone: [facility] 06-23-2025 10:17-0400 Body mass index (BMI) [Ratio] 24.1 kg/m2 Dr. Castro Ferrara DO Work Phone: [facility] 06-23-2025 10:17-0400 Body weight 69.[address] Castro Ferrara DO Work Phone: [facility] 06-14-2025 13:45-0400 Body temperature 97.6 [degF] Dr. Castro Ferrara DO Work Phone: [facility] 06-14-2025 13:45-0400 Diastolic blood pressure 43 mm[Hg] Dr. Castro Ferrara DO Work Phone: [facility] 06-14-2025 13:45-0400 Heart rate 70 /min Dr. Castro Ferrara DO Work Phone: [facility] 06-14-2025 13:45-0400 Respiratory rate 18 /min Dr. Castro Ferrara DO Work Phone: [facility] 06-14-2025 13:45-0400 SaO2% (BldA) [Mass fraction] 99 % Dr. Castro Ferrara DO Work Phone: [facility] 06-14-2025 13:45-0400 Systolic blood pressure 120 mm[Hg] Dr. Castro Ferrara DO Work Phone: [facility] 06-14-2025 08:53-0400 Body height 170.[address] Castro Ferrara DO Work Phone: [facility] 06-14-2025 08:53-0400 Body mass index (BMI) [Ratio] 26.2 kg/m2 Dr. Castro Ferrara DO Work Phone: [facility] 06-14-2025 08:53-0400 Body weight 76.[address] Castro Ferrara DO Work Phone: [facility] 05-27-2025 13:14-0400 Body height 170.[address] Castro Ferrara DO Work Phone: [facility] 05-27-2025 13:14-0400 Body mass index (BMI) [Ratio] 25 kg/m2 Dr. Castro Ferrara DO Work Phone: [facility] 05-27-2025 13:14-0400 Body weight 72.[address] Castro Ferrara DO Work Phone: [facility] 05-27-2025 13:14-0400 Diastolic blood pressure 48 mm[Hg] Dr. Castro Ferrara DO Work Phone: [facility] 05-27-2025 13:14-0400 Heart rate 72 /min Dr. Castro Ferrara DO Work Phone: [facility] 05-27-2025 13:14-0400 Respiratory rate 14 /min Dr. Castro Ferrara DO Work Phone: [facility] 05-27-2025 13:14-0400 SaO2% (BldA) [Mass fraction] 97 % Dr. Castro Ferrara DO Work Phone: [facility] 05-27-2025 13:14-0400 Systolic blood pressure 105 mm[Hg] Dr. Castro Ferrara DO Work Phone: [facility] 04-18-2025 18:27-0400 Body mass index (BMI) [Ratio] 26.5 kg/m2 Dr. Castro Ferrara DO Work Phone: [facility] 04-18-2025 18:27-0400 Body weight 76.[address] Castro Ferrara DO Work Phone: [facility] 04-18-2025 18:01-0400 Body height 170.[address] Castro Ferrara DO Work Phone: [facility] 04-18-2025 18:01-0400 Body temperature 97.6 [degF] Dr. Castro Ferrara DO Work Phone: [facility] 04-18-2025 18:01-0400 Diastolic blood pressure 52 mm[Hg] Dr. Castro Ferrara DO Work Phone: [facility] 04-18-2025 18:01-0400 Heart rate 94 /min Dr. Castro Ferrara DO Work Phone: [facility] 04-18-2025 18:01-0400 Respiratory rate 16 /min Dr. Castro Ferrara DO Work Phone: [facility] 04-18-2025 18:01-0400 SaO2% (BldA) [Mass fraction] 100 % Dr. Castro Ferrara DO Work Phone: [facility] 04-18-2025 18:01-0400 Systolic blood pressure 106 mm[Hg] Dr. Castro Ferrara DO Work Phone: [facility] 04-15-2025 15:44-0400 Body height 170.8 cm Vaishnavi Blancootka DO Work Phone: [facility] Comment on above: pt. stated 04-15-2025 15:44-0400 Body mass index (BMI) [Ratio] 21.45 kg/m2 Vaishnavi Sobotka DO Work Phone: [facility] 04-15-2025 15:44-0400 Body weight 62.6 kg Vaishnavi Sobotka DO Work Phone: [facility] 04-15-2025 15:44-0400 Diastolic blood pressure 40 mm[Hg] Vaishnavi Sobotka DO Work Phone: [facility] Comment on above: provider made aware 04-15-2025 15:44-0400 Heart rate 70 /min Vaishnavi Sobotka DO Work Phone: [facility] 04-15-2025 15:44-0400 Respiratory rate 16 /min Vaishnavi Sobotka DO Work Phone: [facility] 04-15-2025 15:44-0400 SaO2% (BldA) [Mass fraction] 96 % Vaishnavi Sobotka DO Work Phone: [facility] 04-15-2025 15:44-0400 Systolic blood pressure 90 mm[Hg] Vaishnavi Fry DO Work Phone: [facility] Comment on above: provider made aware 03-25-2025 08:28-0400 Body mass index (BMI) [Ratio] 25.2 kg/m2 Dr. Castro Ferrara DO Work Phone: [facility] 03-25-2025 08:28-0400 Body temperature 96.8 [degF] Dr. Castro Ferrara DO Work Phone: [facility] 03-25-2025 08:28-0400 Body weight 73.[address] Castro Ferrara DO Work Phone: [facility] 03-25-2025 08:28-0400 Diastolic blood pressure 56 mm[Hg] Dr. Castro Ferrara DO Work Phone: [facility] 03-25-2025 08:28-0400 Heart rate 52 /min Dr. Castro Ferrara DO Work Phone: [facility] 03-25-2025 08:28-0400 Respiratory rate 18 /min Dr. Castro Ferrara DO Work Phone: [facility] 03-25-2025 08:28-0400 SaO2% (BldA) [Mass fraction] 96 % Dr. Castro Ferrara DO Work Phone: [facility] 03-25-2025 08:28-0400 Systolic blood pressure 95 mm[Hg] Dr. Castro Ferrara DO Work Phone: [facility] 03-17-2025 15:11-0400 Body weight 73.[address] Castro Ferrara DO Work Phone: [facility] 03-06-2025 14:24-0400 Body temperature 97.5 [degF] Hoda Moore MD Work Phone: [facility] 03-06-2025 14:24-0400 Diastolic blood pressure 57 mm[Hg] Hoda Moore MD Work Phone: [facility] 03-06-2025 14:24-0400 Heart rate 69 /min Hoda Moore MD Work Phone: [facility] 03-06-2025 14:24-0400 Respiratory rate 18 /min Hoda Moore MD Work Phone: [facility] 03-06-2025 14:24-0400 SaO2% (BldA) [Mass fraction] 100 % Hoda Moore MD Work Phone: [facility] 03-06-2025 14:24-0400 Systolic blood pressure 116 mm[Hg] Hoda Moore MD Work Phone: [facility] 02-17-2025 07:32-0400 Body height 170.2 cm Hoda Moore MD Work Phone: [facility] 02-17-2025 07:32-0400 Body mass index (BMI) [Ratio] 27.24 kg/m2 Hoda Moore MD Work Phone: [facility] 02-17-2025 07:32-0400 Body weight 78.9 kg Hoda Moore MD Work Phone: [facility] 02-13-2025 08:00-0400 Diastolic blood pressure 55 mm[Hg] Dr. Castro Ferrara DO Work Phone: [facility] 02-13-2025 08:00-0400 Heart rate 74 /min Dr. Castro Ferrara DO Work Phone: [facility] 02-13-2025 08:00-0400 Inhaled oxygen flow rate 2 L/min Dr. Castro Ferrara DO Work Phone: [facility] 02-13-2025 08:00-0400 Respiratory rate 16 /min Dr. Castro Ferrara DO Work Phone: [facility] 02-13-2025 08:00-0400 SaO2% (BldA) [Mass fraction] 95 % Dr. Castro Ferrara DO Work Phone: [facility] 02-13-2025 08:00-0400 Systolic blood pressure 92 mm[Hg] Dr. Castro Ferrara DO Work Phone: [facility] 02-13-2025 06:12-0400 Body temperature 98.2 [degF] Dr. Castro Ferrara DO Work Phone: [facility] 02-12-2025 22:19-0400 Body mass index (BMI) [Ratio] 27.2 kg/m2 Dr. Castro Ferrara DO Work Phone: [facility] 02-12-2025 22:19-0400 Body weight 78.[address] Castro Ferrara DO Work Phone: [facility] 02-12-2025 22:16-0400 Body height 170.[address] Castro Ferrara DO Work Phone: [facility] 01-28-2025 10:39-0400 Body mass index (BMI) [Ratio] 27.2 kg/m2 Dr. Castro Ferrara DO Work Phone: [facility] 01-28-2025 10:39-0400 Body weight 78.[address] Castro Ferrara DO Work Phone: [facility] 01-28-2025 10:39-0400 Diastolic blood pressure 51 mm[Hg] Dr. Castro Ferrara DO Work Phone: [facility] 01-28-2025 10:39-0400 Heart rate 73 /min Dr. Castro Ferrara DO Work Phone: [facility] 01-28-2025 10:39-0400 Respiratory rate 16 /min Dr. Castro Ferrara DO Work Phone: [facility] 01-28-2025 10:39-0400 Systolic blood pressure 92 mm[Hg] Dr. Castro Ferrara DO Work Phone: [facility] 12-19-2024 16:00-0500 Body temperature 97.7 [degF] Carly Mane MD Work Phone: [facility] 12-19-2024 16:00-0500 Diastolic blood pressure 55 mm[Hg] Carly Mane MD Work Phone: [facility] 12-19-2024 16:00-0500 Heart rate 87 /min Carly Mane MD Work Phone: [facility] 12-19-2024 16:00-0500 Respiratory rate 18 /min Carly Mane MD Work Phone: [facility] 12-19-2024 16:00-0500 SaO2% (BldA) [Mass fraction] 96 % Carly Mane MD Work Phone: [facility] 12-19-2024 16:00-0500 Systolic blood pressure 115 mm[Hg] Carly Mane MD Work Phone: [facility] 12-18-2024 17:00-0500 Body height 170.2 cm Carly Mane MD Work Phone: [facility] 12-18-2024 17:00-0500 Body mass index (BMI) [Ratio] 27.32 kg/m2 Carly Mane MD Work Phone: [facility] 12-18-2024 17:00-0500 Body weight 79.15 kg Carly Mane MD Work Phone: [facility] 12-18-2024 10:11-0500 Diastolic blood pressure 48 mm[Hg] Dr. Castro Ferrara DO Work Phone: [facility] 12-18-2024 10:11-0500 Heart rate 80 /min Dr. Castro Ferrara DO Work Phone: [facility] 12-18-2024 10:11-0500 Respiratory rate 16 /min Dr. Castro Ferrara DO Work Phone: [facility] 12-18-2024 10:11-0500 SaO2% (BldA) [Mass fraction] 95 % Dr. Castro Ferrara DO Work Phone: [facility] 12-18-2024 10:11-0500 Systolic blood pressure 116 mm[Hg] Dr. Castro Ferrara DO Work Phone: [facility] 12-18-2024 09:09-0500 Body temperature 98.2 [degF] Dr. Castro Ferrara DO Work Phone: [facility] 12-17-2024 16:00-0500 Body mass index (BMI) [Ratio] 27.2 kg/m2 Dr. Castro Ferrara DO Work Phone: [facility] 12-17-2024 16:00-0500 Body weight 78.[address] Castro Ferrara DO Work Phone: [facility] 12-16-2024 19:52-0500 Body temperature 97.8 [degF] Dr. Castro Ferrara DO Work Phone: [facility] 12-16-2024 19:52-0500 Diastolic blood pressure 56 mm[Hg] Dr. Castro Ferrara DO Work Phone: [facility] 12-16-2024 19:52-0500 Heart rate 70 /min Dr. Castro Ferrara DO Work Phone: [facility] 12-16-2024 19:52-0500 Respiratory rate 18 /min Dr. Castro Ferrara DO Work Phone: [facility] 12-16-2024 19:52-0500 SaO2% (BldA) [Mass fraction] 100 % Dr. Castro Ferrara DO Work Phone: [facility] 12-16-2024 19:52-0500 Systolic blood pressure 112 mm[Hg] Dr. Castro Ferrara DO Work Phone: [facility] 12-16-2024 14:29-0500 Body mass index (BMI) [Ratio] 26.9 kg/m2 Dr. Castro Ferrara DO Work Phone: [facility] 12-16-2024 14:29-0500 Body weight [address] Castro Ferrara DO Work Phone: [facility] 11-25-2024 16:09-0500 Diastolic blood pressure 44 mm[Hg] Dr. Castro Ferrara DO Work Phone: [facility] 11-25-2024 16:09-0500 Systolic blood pressure 90 mm[Hg] Dr. Castro Ferrara DO Work Phone: [facility] 11-25-2024 13:49-0500 Body mass index (BMI) [Ratio] 27.2 kg/m2 Dr. Castro Ferrara DO Work Phone: [facility] 11-25-2024 13:49-0500 Body temperature 97.7 [degF] Dr. Castro Ferrara DO Work Phone: [facility] 11-25-2024 13:49-0500 Body weight 78.[address] Castro Ferrara DO Work Phone: [facility] 11-25-2024 13:49-0500 Heart rate 80 /min Dr. Castro Ferrara DO Work Phone: [facility] 11-25-2024 13:49-0500 Respiratory rate 17 /min Dr. Castro Ferrara DO Work Phone: [facility] 11-25-2024 13:49-0500 SaO2% (BldA) [Mass fraction] 100 % Dr. Castro Ferrara DO Work Phone: [facility] 10-22-2024 10:51-0500 Body height 170.2 cm Kelbyshane Chance TANK HOUSE OPERATOR-SURGICAL SALES REPRESENTATIVE Work Phone: [facility] 10-22-2024 10:51-0500 Body mass index (BMI) [Ratio] 27.25 kg/m2 Kelby Chance TANK HOUSE OPERATOR-SURGICAL SALES REPRESENTATIVE Work Phone: [facility] 10-22-2024 10:51-0500 Body weight 78.93 kg Kelby Chance APRN-SURGICAL SALES REPRESENTATIVE Work Phone: [facility] 10-22-2024 10:51-0500 Diastolic blood pressure 48 mm[Hg] Kelby Chance APRN-SURGICAL SALES REPRESENTATIVE Work Phone: [facility] 10-22-2024 10:51-0500 Systolic blood pressure 122 mm[Hg] Kelby Meron TANK HOUSE OPERATOR-SURGICAL SALES REPRESENTATIVE Work Phone: [facility] 04-16-2024 10:19-0400 Diastolic blood pressure 38 mm[Hg] Vaishnavi Sobotka DO Work Phone: [facility] 04-16-2024 10:19-0400 Heart rate 70 /min Vaishnavi Sobotka DO Work Phone: [facility] 04-16-2024 10:19-0400 SaO2% (BldA) [Mass fraction] 100 % Vaishnavi Sobotka DO Work Phone: [facility] 04-16-2024 10:19-0400 Systolic blood pressure 78 mm[Hg] Vaishnavi Sobotka DO Work Phone: [facility] 04-02-2024 13:15-0400 Diastolic blood pressure 54 mm[Hg] Ronnie Ferrari MD Work Phone: [facility] 04-02-2024 13:15-0400 Heart rate 69 /min Ronnie Ferrari MD Work Phone: 6(517)[phone] [address] 04-02-2024 13:15-0400 Respiratory rate 18 /min Ronnie Ferrari MD Work Phone: 2(626)473-704548 [place] [address] 04-02-2024 13:15-0400 SaO2% (BldA) [Mass fraction] 99 % Ronnie Ferrari MD Work Phone: 4(474)315-846348 [place] [address] 04-02-2024 13:15-0400 Systolic blood pressure 98 mm[Hg] Ronnie Ferrari MD Work Phone: 6(374)[phone] [place] [address] 04-02-2024 08:03-0400 Body height 170.2 cm Ronnie Ferrari MD Work Phone: 1(526)258-334748 [place] [address] 04-02-2024 08:03-0400 Body mass index (BMI) [Ratio] 26.41 kg/m2 Ronnie Ferrari MD Work Phone: 5(514)[phone] [place] [address] 04-02-2024 08:03-0400 Body temperature 98.1 [degF] Ronnie Ferrari MD Work Phone: 3(884)533-595548 [place] [address] 04-02-2024 08:03-0400 Body weight 76.5 kg Ronnie Ferrari MD Work Phone: 6(350)[phone] [place] [address] 03-24-2024 16:11-0400 Body height 170.2 cm Carla ROSE Work Phone: 5(664)069-545048 [place] [address] 03-24-2024 16:11-0400 Body mass index (BMI) [Ratio] 26.62 kg/m2 Carla ROSE Work Phone: 3(988)398-443548 [place] [address] 03-24-2024 16:11-0400 Body weight 77.1 kg Carla ROSE Work Phone: 2(984)431-836948 [place] [address] 03-24-2024 16:11-0400 Diastolic blood pressure 62 mm[Hg] Carla Espinozal MBBS Work Phone: [facility] 03-24-2024 16:11-0400 Systolic blood pressure 108 mm[Hg] Carla Espinozal MBBS Work Phone: [facility] 12-12-2023 11:12-0500 Body height 170.[address] Castro Ferrara Work Phone: [facility] 12-12-2023 11:12-0500 Body mass index (BMI) [Ratio] 27.3 kg/m2 Dr. Castro Ferrara Work Phone: [facility] 12-12-2023 11:12-0500 Body weight 79.[address] Castro Ferrara Work Phone: [facility] 12-12-2023 11:12-0500 Diastolic blood pressure 57 mm[Hg] Dr. Castro Ferrara Work Phone: [facility] 12-12-2023 11:12-0500 Heart rate 71 /min Dr. Castro Ferrara Work Phone: [facility] 12-12-2023 11:12-0500 Respiratory rate 16 /min Dr. Castro Ferrara Work Phone: [facility] 12-12-2023 11:12-0500 Systolic blood pressure 96 mm[Hg] Dr. Castro Ferrara Work Phone: [facility] 12-05-2023 09:47-0500 Body height 170.2 cm Kelby Chance APRN-SURGICAL SALES REPRESENTATIVE Work Phone: [facility] 12-05-2023 09:47-0500 Body mass index (BMI) [Ratio] 26.63 kg/m2 Kelby Chnace APRN-SURGICAL SALES REPRESENTATIVE Work Phone: [facility] 12-05-2023 09:47-0500 Body weight 77.11 kg Kelby Meron TANK HOUSE OPERATOR-SURGICAL SALES REPRESENTATIVE Work Phone: [facility] 12-05-2023 09:47-0500 Diastolic blood pressure 62 mm[Hg] Kelby CARLOSSURGICAL SALES REPRESENTATIVE Work Phone: [facility] 12-05-2023 09:47-0500 Heart rate 74 /min Kelby Chance APRNSamantaSURGICAL SALES REPRESENTATIVE Work Phone: [facility] 12-05-2023 09:47-0500 SaO2% (BldA) [Mass fraction] 93 % Kelby Chance APRN-SURGICAL SALES REPRESENTATIVE Work Phone: [facility] 12-05-2023 09:47-0500 Systolic blood pressure 108 mm[Hg] Kelby Chance APRN-SURGICAL SALES REPRESENTATIVE Work Phone: [facility] 09-19-2023 06:08-0400 Body height 170.[address] Castro Ferrara Work Phone: [facility] 09-19-2023 06:08-0400 Body mass index (BMI) [Ratio] 26.9 kg/m2 Dr. Castro Ferrara Work Phone: [facility] 09-19-2023 06:08-0400 Body temperature 97.3 [degF] Dr. Castro Ferrara Work Phone: [facility] 09-19-2023 06:08-0400 Body weight 78.[address] Castro Ferrara Work Phone: [facility] 09-19-2023 06:08-0400 Diastolic blood pressure 54 mm[Hg] Dr. Castro Ferrara Work Phone: [facility] 09-19-2023 06:08-0400 Heart rate 92 /min Dr. Castro Ferrara Work Phone: [facility] 09-19-2023 06:08-0400 Respiratory rate 18 /min Dr. Castro Ferrara Work Phone: [facility] 09-19-2023 06:08-0400 SaO2% (BldA) [Mass fraction] 92 % Dr. Castro Ferrara Work Phone: [facility] 09-19-2023 06:08-0400 Systolic blood pressure 88 mm[Hg] Dr. Castro Ferrara Work Phone: [facility] 08-07-2023 14:36-0400 Body temperature 98.2 [degF] Dr. Castro Ferrara Work Phone: [facility] 08-07-2023 14:36-0400 Diastolic blood pressure 40 mm[Hg] Dr. Castro Ferrara Work Phone: [facility] 08-07-2023 14:36-0400 Heart rate 74 /min Dr. Castro Ferrara Work Phone: [facility] 08-07-2023 14:36-0400 Respiratory rate 16 /min Dr. Castro Ferrara Work Phone: [facility] 08-07-2023 14:36-0400 SaO2% (BldA) [Mass fraction] 99 % Dr. Castro Ferrara Work Phone: [facility] 08-07-2023 14:36-0400 Systolic blood pressure 98 mm[Hg] Dr. Castro Ferrara Work Phone: [facility] 07-13-2023 08:33-0400 Body height 170.2 cm Vaishnavi Bellaashkanavril DO Work Phone: [facility] 07-13-2023 08:33-0400 Body mass index (BMI) [Ratio] 27.41 kg/m2 Vaishnavi Bellaashkanavril DO Work Phone: [facility] 07-13-2023 08:33-0400 Body temperature 97.2 [degF] Vaishnavi Fry DO Work Phone: [facility] 07-13-2023 08:33-0400 Body weight 79.38 kg Vaishnavi Fry DO Work Phone: [facility] 07-13-2023 08:33-0400 Diastolic blood pressure 38 mm[Hg] Vaishnavi Fry DO Work Phone: [facility] 07-13-2023 08:33-0400 Systolic blood pressure 88 mm[Hg] Vaishnavi Fry DO Work Phone: [facility] 06-11-2023 10:09-0400 Body height 170.[address] Castro Ferrara Work Phone: [facility] 06-11-2023 10:09-0400 Body mass index (BMI) [Ratio] 27.3 kg/m2 Dr. Castro Ferrara Work Phone: [facility] 06-11-2023 10:09-0400 Body weight 79.[address] Castro Ferrara Work Phone: [facility] 06-11-2023 10:09-0400 Diastolic blood pressure 59 mm[Hg] Dr. Castro Ferrara Work Phone: [facility] 06-11-2023 10:09-0400 Heart rate 88 /min Dr. Castro Ferrara Work Phone: [facility] 06-11-2023 10:09-0400 Respiratory rate 22 /min Dr. Castro Ferrara Work Phone: [facility] 06-11-2023 10:09-0400 SaO2% (BldA) [Mass fraction] 99 % Dr. Castro Ferrara Work Phone: [facility] 06-11-2023 10:09-0400 Systolic blood pressure 98 mm[Hg] Dr. Castro Ferrara Work Phone: [facility] 06-04-2023 14:32-0400 Body mass index (BMI) [Ratio] 26.6 kg/m2 Dr. Castro Ferrara Work Phone: [facility] 06-04-2023 14:32-0400 Body temperature 97.2 [degF] Dr. Castro Ferrara Work Phone: [facility] 06-04-2023 14:32-0400 Body weight 77.[address] Castro Ferrara Work Phone: [facility] 06-04-2023 14:32-0400 Diastolic blood pressure 54 mm[Hg] Dr. Castro Ferrara Work Phone: [facility] 06-04-2023 14:32-0400 Heart rate 69 /min Dr. Castro Ferrara Work Phone: [facility] 06-04-2023 14:32-0400 Respiratory rate 16 /min Dr. Castro Ferrara Work Phone: [facility] 06-04-2023 14:32-0400 SaO2% (BldA) [Mass fraction] 99 % Dr. Castro Ferrara Work Phone: [facility] 06-04-2023 14:32-0400 Systolic blood pressure 98 mm[Hg] Dr. Castro Ferrara Work Phone: [facility] 05-18-2023 22:35-0400 Body mass index (BMI) [Ratio] 28.8 kg/m2 Dr. Castro Ferrara Work Phone: [facility] 04-09-2023 11:02-0400 Body height 170.[address] Castro Ferrara Work Phone: [facility] 04-09-2023 11:02-0400 Body mass index (BMI) [Ratio] 27.4 kg/m2 Dr. Castro Ferrara Work Phone: [facility] 04-09-2023 11:02-0400 Body temperature 97.8 [degF] Dr. Castro Ferrara Work Phone: [facility] 04-09-2023 11:02-0400 Body weight 79.[address] Castro Ferrara Work Phone: [facility] 04-09-2023 11:02-0400 Diastolic blood pressure 50 mm[Hg] Dr. Castro Ferrara Work Phone: [facility] 04-09-2023 11:02-0400 Heart rate 87 /min Dr. Castro Ferrara Work Phone: [facility] 04-09-2023 11:02-0400 Respiratory rate 16 /min Dr. Castro Ferrara Work Phone: [facility] 04-09-2023 11:02-0400 SaO2% (BldA) [Mass fraction] 99 % Dr. Castro Ferrara Work Phone: [facility] 04-09-2023 11:02-0400 Systolic blood pressure 116 mm[Hg] Dr. Castro Ferrara Work Phone: [facility] 03-29-2023 21:59-0400 Respiratory rate 22 /min Dr. Castro Ferrara Work Phone: [facility] 03-29-2023 21:09-0400 Diastolic blood pressure 47 mm[Hg] Dr. Castro Ferrara Work Phone: [facility] 03-29-2023 21:09-0400 Heart rate 70 /min Dr. Castro Ferrara Work Phone: [facility] 03-29-2023 21:09-0400 SaO2% (BldA) [Mass fraction] 100 % Dr. Castro Ferrara Work Phone: [facility] [facility] 03-29-2023 21:09-0400 Systolic blood pressure 106 mm[Hg] Dr. Castro Ferrara Work Phone: [facility] 03-29-2023 17:03-0400 Body height 170.[address] Castro Ferrara Work Phone: [facility] 03-29-2023 17:03-0400 Body mass index (BMI) [Ratio] 27.3 kg/m2 Dr. Castro Ferrara Work Phone: [facility] 03-29-2023 17:03-0400 Body temperature 98 [degF] Dr. Castro Ferrara Work Phone: [facility] 03-29-2023 17:03-0400 Body weight 79.[address] Castro Ferrara Work Phone: [facility] 03-29-2023 09:06-0400 Body height 170.[address] Castro Ferrara Work Phone: [facility] 03-29-2023 09:06-0400 Body weight 70.[address] Castro Ferrara Work Phone: [facility] 03-29-2023 07:24-0400 Body mass index (BMI) [Ratio] 24.3 kg/m2 Dr. Castro Ferrara Work Phone: [facility] 03-28-2023 09:52-0400 Diastolic blood pressure 53 mm[Hg] Darrel Garcia MD Work Phone: [facility] 03-28-2023 09:52-0400 Heart rate 90 /min Darrel Garcia MD Work Phone: [facility] 03-28-2023 09:52-0400 SaO2% (BldA) [Mass fraction] 97 % Darrel Garcia MD Work Phone: [facility] 03-28-2023 09:52-0400 Systolic blood pressure 83 mm[Hg] Darrel Garcia MD Work Phone: [facility] 03-27-2023 14:44-0400 Body temperature 96.6 [degF] Dr. Castro Ferrara Work Phone: [facility] 03-27-2023 14:44-0400 Diastolic blood pressure 61 mm[Hg] Dr. Castro Ferrara Work Phone: [facility] 03-27-2023 14:44-0400 Heart rate 70 /min Dr. Castro Ferrara Work Phone: [facility] 03-27-2023 14:44-0400 Respiratory rate 18 /min Dr. Castro Ferrara Work Phone: [facility] 03-27-2023 14:44-0400 SaO2% (BldA) [Mass fraction] 98 % Dr. Castro Ferrara Work Phone: [facility] 03-27-2023 14:44-0400 Systolic blood pressure 97 mm[Hg] Dr. Castro Ferrara Work Phone: [facility] 03-08-2023 10:27-0400 Body height 170.[address] Vinny Atkinson Work Phone: [facility] 03-08-2023 10:27-0400 Body mass index (BMI) [Ratio] 29.1 kg/m2 Dr. Vinny Atkinson Work Phone: [facility] 03-08-2023 10:27-0400 Body temperature 97.3 [degF] Dr. Vinny Atkinson Work Phone: [facility] 03-08-2023 10:27-0400 Body weight 84.[address] Vinny Atkinson Work Phone: [facility] 03-08-2023 10:27-0400 Diastolic blood pressure 48 mm[Hg] Dr. Vinny Atkinson Work Phone: [facility] 03-08-2023 10:27-0400 Heart rate 88 /min Dr. Vinny Atkinson Work Phone: [facility] 03-08-2023 10:27-0400 Respiratory rate 18 /min Dr. Vinny Atkinson Work Phone: [facility] 03-08-2023 10:27-0400 SaO2% (BldA) [Mass fraction] 99 % Dr. Vinny Atkinson Work Phone: [facility] 03-08-2023 10:27-0400 Systolic blood pressure 81 mm[Hg] Dr. Vinny Atkinson Work Phone: [facility] 02-16-2023 23:14-0400 Body mass index (BMI) [Ratio] 28.8 kg/m2 Dr. Castro Ferraar Work Phone: [facility] 01-19-2023 15:47-0500 Body temperature 98.4 [degF] Dr. Vinny Atkinson Work Phone: [facility] 01-19-2023 15:47-0500 Diastolic blood pressure 53 mm[Hg] Dr. Vinny Atkinson Work Phone: [facility] 01-19-2023 15:47-0500 Heart rate 69 /min Dr. Vinny Atkinson Work Phone: [facility] 01-19-2023 15:47-0500 Respiratory rate 16 /min Dr. Vinny Atkinson Work Phone: [facility] 01-19-2023 15:47-0500 SaO2% (BldA) [Mass fraction] 99 % Dr. Vinny Atkinson Work Phone: [facility] 01-19-2023 15:47-0500 Systolic blood pressure 127 mm[Hg] Dr. Vinny Atkinson Work Phone: [facility] 01-19-2023 15:28-0500 Body height 170.[address] Vinny Atkinson Work Phone: [facility] 01-19-2023 15:28-0500 Body weight 78.[address] Vinny Atkinson Work Phone: [facility] 01-19-2023 06:00-0500 Body mass index (BMI) [Ratio] 27.1 kg/m2 Dr. Vinny Atkinson Work Phone: [facility] 01-17-2023 22:04-0500 Body temperature 97.8 [degF] Dr. Vinny Atkinson Work Phone: [facility] 01-17-2023 22:04-0500 Diastolic blood pressure 47 mm[Hg] Dr. Vinny Atkinson Work Phone: [facility] 01-17-2023 22:04-0500 Heart rate 74 /min Dr. Vinny Atkinson Work Phone: [facility] 01-17-2023 22:04-0500 Respiratory rate 18 /min Dr. Vinny Atkinson Work Phone: [facility] 01-17-2023 22:04-0500 SaO2% (BldA) [Mass fraction] 99 % Dr. Vinny Atkinson Work Phone: [facility] 01-17-2023 22:04-0500 Systolic blood pressure 106 mm[Hg] Dr. Vinny Atkinson Work Phone: [facility] 01-17-2023 16:23-0500 Body height 170.[address] Vinny Atkinson Work Phone: [facility] 01-17-2023 16:23-0500 Body mass index (BMI) [Ratio] 26.9 kg/m2 Dr. Vinny Atkinson Work Phone: [facility] 01-17-2023 16:23-0500 Body weight 78.[address] Vinny Atkinson Work Phone: [facility] 01-16-2023 22:30-0500 Body mass index (BMI) [Ratio] 28.8 kg/m2 Dr. Vinny Atkinson Work Phone: [facility] 01-15-2023 10:51-0500 Body height 170.2 cm Kelby GOMEZ Work Phone: [facility] 01-15-2023 10:51-0500 Body mass index (BMI) [Ratio] 27.41 kg/m2 Kelby Chance APRN-SURGICAL SALES REPRESENTATIVE Work Phone: [facility] 01-15-2023 10:51-0500 Body temperature 97.9 [degF] Kelby GOMEZ Work Phone: [facility] 01-15-2023 10:51-0500 Body weight 79.38 kg Kelby Chance APRN-SURGICAL SALES REPRESENTATIVE Work Phone: [facility] 01-15-2023 10:51-0500 Diastolic blood pressure 54 mm[Hg] Kelby Chance APRNSamantaSURGICAL SALES REPRESENTATIVE Work Phone: [facility] 01-15-2023 10:51-0500 Heart rate 69 /min Kelby Chance APRNSamantaSURGICAL SALES REPRESENTATIVE Work Phone: [facility] 01-15-2023 10:51-0500 Respiratory rate 16 /min Kelby Chance APRN-SURGICAL SALES REPRESENTATIVE Work Phone: [facility] 01-15-2023 10:51-0500 SaO2% (BldA) [Mass fraction] 100 % Kelby Chance APRNJOANN Work Phone: [facility] 01-15-2023 10:51-0500 Systolic blood pressure 116 mm[Hg] Kelby CARLOSSURGICAL SALES REPRESENTATIVE Work Phone: [facility] 12-20-2022 08:35-0500 Body mass index (BMI) [Ratio] 28.8 kg/m2 Dr. Vinny Atkinson Work Phone: [facility] 11-27-2022 13:21-0500 Body height 170.[address] Vinny Atkinson Work Phone: [facility] 11-27-2022 13:21-0500 Body mass index (BMI) [Ratio] 26 kg/m2 Dr. Vinny Atkinson Work Phone: [facility] 11-27-2022 13:21-0500 Body weight 75.[address] Vinny Atkinson Work Phone: [facility] 11-27-2022 13:21-0500 Diastolic blood pressure 60 mm[Hg] Dr. Vinny Atkinson Work Phone: [facility] 11-27-2022 13:21-0500 Heart rate 72 /min Dr. Vinny Atkinson Work Phone: [facility] 11-27-2022 13:21-0500 Respiratory rate 16 /min Dr. Vinny Atkinson Work Phone: [facility] 11-27-2022 13:21-0500 Systolic blood pressure 110 mm[Hg] Dr. Vinny Atkinson Work Phone: [facility] 11-19-2022 04:08-0500 Body mass index (BMI) [Ratio] 28.8 kg/m2 Dr. Vinny Atkinson Work Phone: [facility] 10-19-2022 00:35-0500 Body mass index (BMI) [Ratio] 28.8 kg/m2 Dr. Vinny Atkinson Work Phone: [facility] 10-16-2022 12:06-0500 Body mass index (BMI) [Ratio] 25.8 kg/m2 Dr. Vinny Atkinson Work Phone: [facility] 10-16-2022 12:06-0500 Diastolic blood pressure 42 mm[Hg] Dr. Vinny Atkinson Work Phone: [facility] 10-16-2022 12:06-0500 Systolic blood pressure 100 mm[Hg] Dr. Vinny Atkinson Work Phone: [facility] 10-16-2022 11:16-0500 Body temperature 98.2 [degF] Dr. Vinny Atkinson Work Phone: [facility] 10-16-2022 11:16-0500 Body weight 74.[address] Vinny Atkinson Work Phone: [facility] 10-16-2022 11:16-0500 Heart rate 87 /min Dr. Vinny Aktinson Work Phone: [facility] 10-16-2022 11:16-0500 Respiratory rate 16 /min Dr. Vinny Atkinson Work Phone: [facility] 10-16-2022 11:16-0500 SaO2% (BldA) [Mass fraction] 97 % Dr. Vinny Atkinson Work Phone: [facility] 09-27-2022 08:33-0500 Body mass index (BMI) [Ratio] 25.3 kg/m2 Dr. Vinny Atkinson Work Phone: [facility] 09-27-2022 08:33-0500 Body weight 73.[address] Vinny Atkinson Work Phone: [facility] 09-27-2022 08:33-0500 Diastolic blood pressure 64 mm[Hg] Dr. Vinny Atkinson Work Phone: [facility] 09-27-2022 08:33-0500 Heart rate 70 /min Dr. Vinny Atkinson Work Phone: [facility] 09-27-2022 08:33-0500 SaO2% (BldA) [Mass fraction] 98 % Dr. Vinny Atkinson Work Phone: [facility] 09-27-2022 08:33-0500 Systolic blood pressure 108 mm[Hg] Dr. Vinny Atkinson Work Phone: [facility] 09-19-2022 00:10-0400 Body mass index (BMI) [Ratio] 28.8 kg/m2 Dr. Vinny Atkinson Work Phone: [facility] 08-18-2022 22:00-0400 Body mass index (BMI) [Ratio] 28.8 kg/m2 Dr. Vinny Atkinson Work Phone: [facility] 07-19-2022 23:22-0400 Body mass index (BMI) [Ratio] 28.8 kg/m2 Dr. Vinny Atkinson Work Phone: [facility] Work Phone: 07-18-2022 11:07-0400 Heart rate 72 /min Dr. Vinny Atkinson Work Phone: [facility] Work Phone: 07-18-2022 09:12-0400 Body temperature 97.9 [degF] Dr. Vinny Atkinson Work Phone: [facility] Work Phone: 07-18-2022 09:12-0400 Diastolic blood pressure 58 mm[Hg] Dr. Vinny Atkinson Work Phone: [facility] Work Phone: 07-18-2022 09:12-0400 Respiratory rate 14 /min Dr. Vinny Atkinson Work Phone: [facility] Work Phone: 07-18-2022 09:12-0400 SaO2% (BldA) [Mass fraction] 93 % Dr. Vinny Atkinson Work Phone: [facility] Work Phone: 07-18-2022 09:12-0400 Systolic blood pressure 121 mm[Hg] Dr. Vinny Atkinson Work Phone: [facility] Work Phone: 07-18-2022 03:58-0400 Body weight 72.[address] Vinny Atkinson Work Phone: [facility] Work Phone: 07-16-2022 13:00-0400 Body height 170.[address] Vinny Atkinson Work Phone: [facility] Work Phone: 07-16-2022 13:00-0400 Body mass index (BMI) [Ratio] 25.4 kg/m2 Dr. Vinny Atkinson Work Phone: [facility] Work Phone: 07-15-2022 19:00-0400 Body temperature 98.3 [degF] Dr. Vinny Atkinson Work Phone: [facility] Work Phone: 07-15-2022 19:00-0400 Diastolic blood pressure 59 mm[Hg] Dr. Vinny Atkinson Work Phone: [facility] Work Phone: 07-15-2022 19:00-0400 Heart rate 74 /min Dr. Vinny Atkinson Work Phone: [facility] Work Phone: 07-15-2022 19:00-0400 Respiratory rate 18 /min Dr. Vinny Atkinson Work Phone: [facility] Work Phone: 07-15-2022 19:00-0400 SaO2% (BldA) [Mass fraction] 99 % Dr. Vinny Atkinson Work Phone: [facility] Work Phone: 07-15-2022 19:00-0400 Systolic blood pressure 113 mm[Hg] Dr. Vinny Atkinson Work Phone: [facility] Work Phone: 07-15-2022 11:47-0400 Body height 170.[address] Vinny Atkinson Work Phone: [facility] Work Phone: 07-15-2022 11:47-0400 Body mass index (BMI) [Ratio] 27.1 kg/m2 Dr. Vinny Atkinson Work Phone: [facility] Work Phone: 07-15-2022 11:47-0400 Body weight 78.[address] Vinny Atkinson Work Phone: [facility] Work Phone: 07-14-2022 11:12-0400 Body height 170.2 cm Vaishnavi Garciaka DO Work Phone: [facility] 07-14-2022 11:12-0400 Body mass index (BMI) [Ratio] 25.87 kg/m2 Vaishnavi Sobotka DO Work Phone: [facility] 07-14-2022 11:12-0400 Body temperature 98.1 [degF] Vaishnavi Sobotka DO Work Phone: [facility] 07-14-2022 11:12-0400 Body weight 74.93 kg Vaishnavi Sobotka DO Work Phone: [facility] 07-14-2022 11:12-0400 Diastolic blood pressure 59 mm[Hg] Vaishnavi Sobotka DO Work Phone: [facility] 07-14-2022 11:12-0400 Heart rate 71 /min Vaishnavi Sobotka DO Work Phone: [facility] 07-14-2022 11:12-0400 Respiratory rate 16 /min Vaishnavi Sobotka DO Work Phone: [facility] 07-14-2022 11:12-0400 SaO2% (BldA) [Mass fraction] 99 % Vaishnavi Sobotka DO Work Phone: [facility] 07-14-2022 11:12-0400 Systolic blood pressure 103 mm[Hg] Vaishnavi Sobotka DO Work Phone: [facility] 06-18-2022 02:49-0400 Body mass index (BMI) [Ratio] 28.8 kg/m2 Dr. Vinny Atkisnon Work Phone: [facility] Work Phone: 06-06-2022 14:06-0400 Body mass index (BMI) [Ratio] 24 kg/m2 Dr. Vinny Atkinson Work Phone: [facility] Work Phone: 06-06-2022 14:06-0400 Body temperature 98.2 [degF] Dr. Vinny Atkinson Work Phone: [facility] Work Phone: 06-06-2022 14:06-0400 Body weight 69.[address] Vinny Atkinson Work Phone: [facility] Work Phone: 06-06-2022 14:06-0400 Diastolic blood pressure 61 mm[Hg] Dr. Vinny Atkinson Work Phone: [facility] Work Phone: 06-06-2022 14:06-0400 Heart rate 69 /min Dr. Vinny Atkinson Work Phone: [facility] Work Phone: 06-06-2022 14:06-0400 Respiratory rate 18 /min Dr. Vinny Atkinson Work Phone: [facility] Work Phone: 06-06-2022 14:06-0400 SaO2% (BldA) [Mass fraction] 98 % Dr. Vinny Atkinson Work Phone: [facility] Work Phone: 06-06-2022 14:06-0400 Systolic blood pressure 123 mm[Hg] Dr. Vinny Atkinson Work Phone: [facility] Work Phone: 05-23-2022 10:47-0400 Body mass index (BMI) [Ratio] 23.8 kg/m2 Dr. Vinny Atkinson Work Phone: [facility] Work Phone: 05-23-2022 10:47-0400 Body temperature 98.6 [degF] Dr. Vinny Atkinson Work Phone: [facility] Work Phone: 05-23-2022 10:47-0400 Body weight 68.[address] Vinny Atkinson Work Phone: [facility] Work Phone: 05-23-2022 10:47-0400 Diastolic blood pressure 54 mm[Hg] Dr. Vinny Atkinson Work Phone: [facility] Work Phone: 05-23-2022 10:47-0400 Heart rate 78 /min Dr. Vinny Atkinson Work Phone: [facility] Work Phone: 05-23-2022 10:47-0400 Respiratory rate 17 /min Dr. Vinny Atkinson Work Phone: [facility] Work Phone: 05-23-2022 10:47-0400 SaO2% (BldA) [Mass fraction] 98 % Dr. Vinny Atkinson Work Phone: [facility] Work Phone: 05-23-2022 10:47-0400 Systolic blood pressure 122 mm[Hg] Dr. Vinny Atkinson Work Phone: [facility] Work Phone: 05-19-2022 07:22-0400 Body mass index (BMI) [Ratio] 28.8 kg/m2 Dr. Vinny Atkinson Work Phone: [facility] Work Phone: 05-08-2022 15:37-0400 Body height 170.[address] Vinny Atkinson Work Phone: [facility] Work Phone: 05-08-2022 15:37-0400 Body mass index (BMI) [Ratio] 24.5 kg/m2 Dr. Vinny Atkinson Work Phone: [facility] Work Phone: 05-08-2022 15:37-0400 Body weight 71.[address] Vinny Atkinson Work Phone: [facility] Work Phone: 05-08-2022 15:37-0400 Diastolic blood pressure 56 mm[Hg] Dr. Vinny Atkinson Work Phone: [facility] Work Phone: 05-08-2022 15:37-0400 Heart rate 80 /min Dr. Vinny Atkinson Work Phone: [facility] Work Phone: 05-08-2022 15:37-0400 Respiratory rate 16 /min Dr. Vinny Atkinson Work Phone: [facility] Work Phone: 05-08-2022 15:37-0400 Systolic blood pressure 124 mm[Hg] Dr. Vinny Atkinson Work Phone: [facility] Work Phone: 04-24-2022 14:04-0400 Body temperature 98.5 [degF] Dr. Vinny Atkinson Work Phone: [facility] Work Phone: 04-24-2022 14:04-0400 Diastolic blood pressure 52 mm[Hg] Dr. Vinny Atkinson Work Phone: [facility] Work Phone: 04-24-2022 14:04-0400 Heart rate 72 /min Dr. Vinny Atkinson Work Phone: [facility] Work Phone: 04-24-2022 14:04-0400 Respiratory rate 17 /min Dr. Vinny Atkinson Work Phone: [facility] Work Phone: 04-24-2022 14:04-0400 SaO2% (BldA) [Mass fraction] 97 % Dr. Vinny Atkinson Work Phone: [facility] Work Phone: 04-24-2022 14:04-0400 Systolic blood pressure 116 mm[Hg] Dr. Vinny Atkinson Work Phone: [facility] Work Phone: 04-18-2022 20:58-0400 Body mass index (BMI) [Ratio] 28.8 kg/m2 Dr. Vinny Atkinson Work Phone: [facility] Work Phone: 04-08-2022 06:33-0400 Heart rate 96 /min Dr. Vinny Atkinson Work Phone: [facility] Work Phone: 04-08-2022 06:33-0400 SaO2% (BldA) [Mass fraction] 96 % Dr. Vinny Atkinson Work Phone: [facility] Work Phone: 04-08-2022 05:42-0400 Body height 170.[address] Vinny Atkinson Work Phone: [facility] Work Phone: 04-08-2022 05:42-0400 Body mass index (BMI) [Ratio] 24.1 kg/m2 Dr. Vinny Atkinson Work Phone: [facility] Work Phone: 04-08-2022 05:42-0400 Body temperature 97.9 [degF] Dr. Vinny Atkinson Work Phone: [facility] Work Phone: 04-08-2022 05:42-0400 Body weight [address] Vinny Atkinson Work Phone: [facility] Work Phone: 04-08-2022 05:42-0400 Diastolic blood pressure 47 mm[Hg] Dr. Vinny Atkinson Work Phone: [facility] Work Phone: 04-08-2022 05:42-0400 Respiratory rate 20 /min Dr. Vinny Atkinson Work Phone: [facility] Work Phone: 04-08-2022 05:42-0400 Systolic blood pressure 109 mm[Hg] Dr. Vinny Atkinson Work Phone: [facility] Work Phone: 04-06-2022 14:15-0400 Body temperature 97.6 [degF] Dr. Vinny Atkinson Work Phone: [facility] Work Phone: 04-06-2022 14:15-0400 Diastolic blood pressure 41 mm[Hg] Dr. Vinny Atkinson Work Phone: [facility] Work Phone: 04-06-2022 14:15-0400 Heart rate 70 /min Dr. Vinny Atkinson Work Phone: [facility] Work Phone: 04-06-2022 14:15-0400 Respiratory rate 16 /min Dr. Vinny Atkinson Work Phone: [facility] Work Phone: 04-06-2022 14:15-0400 SaO2% (BldA) [Mass fraction] 98 % Dr. Vinny Atkinson Work Phone: [facility] Work Phone: 04-06-2022 14:15-0400 Systolic blood pressure 103 mm[Hg] Dr. Vinny Atkinson Work Phone: [facility] Work Phone: 04-06-2022 06:00-0400 Body weight 68.[address] Vinny Atkinson Work Phone: [facility] Work Phone: 04-04-2022 14:50-0400 Body height 170.[address] Vinny Atkinson Work Phone: [facility] Work Phone: 04-04-2022 09:01-0400 Body mass index (BMI) [Ratio] 24 kg/m2 Dr. Vinny Atkinson Work Phone: [facility] Work Phone: 03-19-2022 03:35-0400 Body mass index (BMI) [Ratio] 28.8 kg/m2 Dr. Vinny Atkinson Work Phone: [facility] Work Phone: 02-17-2022 02:42-0400 Body mass index (BMI) [Ratio] 28.8 kg/m2 Dr. Vinny Atkinson Work Phone: [facility] Work Phone: 02-16-2022 13:47-0400 Body height 170.[address] Vinny Atkinson Work Phone: [facility] Work Phone: 02-16-2022 13:47-0400 Body weight 72.[address] Vinny Atkinson Work Phone: [facility] Work Phone: 02-16-2022 13:47-0400 Heart rate 71 /min Dr. Vinny Atkinson Work Phone: [facility] Work Phone: 02-16-2022 13:47-0400 SaO2% (BldA) [Mass fraction] 94 % Dr. Vinny Atkinson Work Phone: [facility] Work Phone: 02-01-2022 08:44-0400 Body mass index (BMI) [Ratio] 22.5 kg/m2 Dr. Vinny Atkinson Work Phone: [facility] Work Phone: 02-01-2022 08:44-0400 Body weight 71.[address] Vinny Atkinson Work Phone: [facility] Work Phone: 02-01-2022 08:44-0400 Diastolic blood pressure 58 mm[Hg] Dr. Vinny Atkinson Work Phone: [facility] Work Phone: 02-01-2022 08:44-0400 Heart rate 69 /min Dr. Vinny Atkinson Work Phone: [facility] Work Phone: 02-01-2022 08:44-0400 Respiratory rate 18 /min Dr. Vinny Atkinson Work Phone: [facility] Work Phone: 02-01-2022 08:44-0400 Systolic blood pressure 114 mm[Hg] Dr. Vinny Atkinson Work Phone: [facility] Work Phone: 02-01-2022 08:44-0400 Body mass index (BMI) [Ratio] 22.5 kg/m2 Dr. Vinny Atkinson Work Phone: [facility] Work Phone: 02-01-2022 08:44-0400 Body weight 71.[address] Vinny Atkinson Work Phone: [facility] Work Phone: 02-01-2022 08:44-0400 Diastolic blood pressure 58 mm[Hg] Dr. Vinny Atkinson Work Phone: [facility] Work Phone: 02-01-2022 08:44-0400 Heart rate 69 /min Dr. Vinny Atkinson Work Phone: [facility] Work Phone: 02-01-2022 08:44-0400 Respiratory rate 18 /min Dr. Vinny Atkinson Work Phone: [facility] Work Phone: 02-01-2022 08:44-0400 Systolic blood pressure 114 mm[Hg] Dr. Vinny Atkinson Work Phone: [facility] Work Phone: 01-26-2022 13:40-0500 Diastolic blood pressure 66 mm[Hg] Dr. Vinny Atkinson Work Phone: [facility] Work Phone: 01-26-2022 13:40-0500 Heart rate 70 /min Dr. Vinny Atkinson Work Phone: [facility] Work Phone: 01-26-2022 13:40-0500 Respiratory rate 16 /min Dr. Vinny Atkinson Work Phone: [facility] Work Phone: 01-26-2022 13:40-0500 SaO2% (BldA) [Mass fraction] 97 % Dr. Vinny Atkinson Work Phone: [facility] Work Phone: 01-26-2022 13:40-0500 Systolic blood pressure 131 mm[Hg] Dr. Vinny Atkinson Work Phone: [facility] Work Phone: 01-26-2022 12:40-0500 Diastolic blood pressure 66 mm[Hg] Dr. Vinny Atkinson Work Phone: [facility] Work Phone: 01-26-2022 12:40-0500 Heart rate 70 /min Dr. Vinny Atkinson Work Phone: [facility] Work Phone: 01-26-2022 12:40-0500 Respiratory rate 16 /min Dr. Vinny Atkinson Work Phone: [facility] Work Phone: 01-26-2022 12:40-0500 SaO2% (BldA) [Mass fraction] 97 % Dr. Vinny Atkinson Work Phone: [facility] Work Phone: 01-26-2022 12:40-0500 Systolic blood pressure 131 mm[Hg] Dr. Vinny Atkinson Work Phone: [facility] Work Phone: 01-17-2022 09:51-0500 Body mass index (BMI) [Ratio] 28.8 kg/m2 Dr. Vinny Atkinson Work Phone: [facility] Work Phone: 01-17-2022 08:51-0500 Body mass index (BMI) [Ratio] 28.8 kg/m2 Dr. Vinny Atkinson Work Phone: [facility] Work Phone: 01-12-2022 12:48-0500 Body temperature 97.6 [degF] Dr. Vinny Atkinson Work Phone: [facility] Work Phone: 01-12-2022 12:48-0500 Diastolic blood pressure 55 mm[Hg] Dr. Vinny Atkinson Work Phone: [facility] Work Phone: 01-12-2022 12:48-0500 Heart rate 72 /min Dr. Vinny Atkinson Work Phone: [facility] Work Phone: 01-12-2022 12:48-0500 Respiratory rate 18 /min Dr. Vinny Atkinson Work Phone: [facility] Work Phone: 01-12-2022 12:48-0500 SaO2% (BldA) [Mass fraction] 100 % Dr. Vinny Atkinson Work Phone: [facility] Work Phone: 01-12-2022 12:48-0500 Systolic blood pressure 134 mm[Hg] Dr. Vinny Atkinson Work Phone: [facility] Work Phone: 01-12-2022 05:00-0500 Body weight 73.[address] Vinny Atkinson Work Phone: [facility] Work Phone: 01-10-2022 14:05-0500 Body mass index (BMI) [Ratio] 23 kg/m2 Dr. Vinny Atkinson Work Phone: [facility] Work Phone: 01-10-2022 13:48-0500 Inhaled oxygen concentration 100 % Dr. Vinny Atkinson Work Phone: [facility] Work Phone: 01-09-2022 19:31-0500 Diastolic blood pressure 66 mm[Hg] Dr. Vinny Atkinson Work Phone: [facility] Work Phone: 01-09-2022 19:31-0500 Systolic blood pressure 150 mm[Hg] Dr. Vinny Atkinson Work Phone: [facility] Work Phone: 01-09-2022 07:57-0500 Heart rate 75 /min Dr. Vinny Atkinson Work Phone: [facility] Work Phone: 01-09-2022 07:57-0500 SaO2% (BldA) [Mass fraction] 98 % Dr. Vinny Atkinson Work Phone: [facility] Work Phone: 12-20-2021 00:26-0500 Body mass index (BMI) [Ratio] 28.8 kg/m2 Dr. Vinny Atkinson Work Phone: [facility] Work Phone: 12-15-2021 11:30-0500 Body mass index (BMI) [Ratio] 24.3 kg/m2 Dr. Vinny Atkinson Work Phone: [facility] Work Phone: 12-15-2021 11:30-0500 Body temperature 96.7 [degF] Dr. Vinny Atkinson Work Phone: [facility] Work Phone: 12-15-2021 11:30-0500 Body weight 70.[address] Vinny Atkinson Work Phone: [facility] Work Phone: 12-15-2021 11:30-0500 Diastolic blood pressure 71 mm[Hg] Dr. Vinny Atkinson Work Phone: [facility] Work Phone: 12-15-2021 11:30-0500 Heart rate 70 /min Dr. Vinny Atkinson Work Phone: [facility] Work Phone: 12-15-2021 11:30-0500 Respiratory rate 20 /min Dr. Vinny Atkinson Work Phone: [facility] Work Phone: 12-15-2021 11:30-0500 SaO2% (BldA) [Mass fraction] 97 % Dr. Vinny Atkinson Work Phone: [facility] Work Phone: 12-15-2021 11:30-0500 Systolic blood pressure 136 mm[Hg] Dr. Vinny Atkinson Work Phone: [facility] Work Phone: 11-20-2021 03:36-0500 Body mass index (BMI) [Ratio] 28.8 kg/m2 Dr. Vinny Atkinson Work Phone: [facility] Work Phone: 10-31-2021 12:56-0500 Body mass index (BMI) [Ratio] 25.7 kg/m2 Dr. Vinny Atkinson Work Phone: [facility] Work Phone: 10-31-2021 12:56-0500 Body weight 74.[address] Vinny Atkinson Work Phone: [facility] Work Phone: 10-31-2021 12:56-0500 Diastolic blood pressure 58 mm[Hg] Dr. Vinny Atkinson Work Phone: [facility] Work Phone: 10-31-2021 12:56-0500 Heart rate 72 /min Dr. Vinny Atkinson Work Phone: [facility] Work Phone: 10-31-2021 12:56-0500 Respiratory rate 16 /min Dr. Vinny Atiknson Work Phone: [facility] Work Phone: 10-31-2021 12:56-0500 Systolic blood pressure 144 mm[Hg] Dr. Vinny Atkinson Work Phone: [facility] Work Phone: 08-18-2021 21:58-0400 Body mass index (BMI) [Ratio] 28.8 kg/m2 Dr. Vinny Atkinson Work Phone: [facility] Work Phone: 05-19-2021 14:32-0400 Body mass index (BMI) [Ratio] 29.2 kg/m2 Dr. Vinny Atkinson Work Phone: [facility] Work Phone: 12-14-2020 14:51-0500 Body mass index (BMI) [Ratio] 29 kg/m2 Dr. Vinny Atkinson Work Phone: [facility] 12-14-2020 14:51-0500 Body temperature 97.6 [degF] Dr. Vinny Atkinson Work Phone: [facility] 12-14-2020 14:51-0500 Body weight 84.[address] Vinny Atkinson Work Phone: [facility] Work Phone: 12-14-2020 14:51-0500 Diastolic blood pressure 64 mm[Hg] Dr. Vinny Atkinson Work Phone: [facility] 12-14-2020 14:51-0500 Heart rate 70 /min Dr. Vinny Atkinson Work Phone: [facility] 12-14-2020 14:51-0500 Respiratory rate 16 /min Dr. Vinny Atkinson Work Phone: [facility] 12-14-2020 14:51-0500 SaO2% (BldA) [Mass fraction] 100 % Dr. Vinny Atkinson Work Phone: [facility] 12-14-2020 14:51-0500 Systolic blood pressure 154 mm[Hg] Dr. Vinny Atkinson Work Phone: [facility] 07-16-2017 16:22-0400 BMI (Body Mass Index) 28.35 [...] Pulse Oximetry 98 % Meron Cohen RN [facility] Work Phone: Encounters Encounter Date Encounter Type Care Provider Facility Start: 07-17-2025 ambulatory Castro Ferrara Facility: [facility] Start: 07-16-2025 ambulatory Isabelaritu QUIÑONES Facility:[facility] Start: 07-01-2025 End: 07-01-2025 ambulatory Kirsten Angeles PA-C Work Phone: [facility] Comment on above: CoPat Start Start: 06-24-2025 End: 07-15-2025 Evaluation and management of inpatient REMUS A UNGUR Facility:[facility] Start: 06-23-2025 End: 06-24-2025 Dr. Castro Ferrara DO Work Phone: -Emergency Department Work Phone: Start: 06-23-2025 End: 06-24-2025 Emergency department patient visit Dr. Castro Ferrara DO Work Phone: -Emergency Department Start: 06-22-2025 ambulatory Castro Ferrara Facility: [facility] Start: 06-22-2025 Dr. Castro moy DO -[facility] Work Phone: Start: 06-17-2025 ambulatory PRIYA GUERRA Facility:[facility] Start: 06-14-2025 End: 06-14-2025 Dr. Castro Ferrara DO Work Phone: -Emergency Department Work Phone: Start: 06-14-2025 End: 06-14-2025 Emergency department patient visit Dr. Castro Ferrara DO Work Phone: -Emergency Department Start: 06-11-2025 End: 06-11-[address] Castro Ferrara DO Work Phone: -Laboratory Start: 06-11-2025 End: 06-11-2025 Jane KEMP -Laboratory Work Phone: Start: 06-10-2025 End: 06-11-2025 ambulatory Jane KEMP Facility:[facility] Start: 06-10-2025 Dr. Castro moy DO -[facility] Work Phone: Start: 06-08-2025 ambulatory [facility] Facility: [facility] Start: 06-08-2025 Dr. Castro moy DO -[facility] Work Phone: Start: 06-01-2025 ambulatory Karthikeyan Turner Facility:[facility] Start: 06-01-2025 Dr. Karthikeyan Turner MD -[facility] Start: 05-29-2025 ambulatory [facility] Facility: [facility] Start: 05-29-2025 Dr. Castro moy DO -[facility] Work Phone: Start: 05-27-2025 End: 05-27-[address] Castro Ferrara DO Work Phone: [facility] Start: 05-27-2025 End: 05-27-2025 Dr. Karthikeyan Turner MD -[facility] Work Phone: Start: 05-27-2025 ambulatory Castro [facility] Facility: [facility] Start: 05-27-2025 Dr. Castro moy DO -[facility] Work Phone: Start: 05-25-2025 ambulatory [facility] Facility: [facility] Start: 05-25-2025 Dr. Castro moy DO -[facility] Work Phone: Start: 05-18-2025 ambulatory Castro [facility] Facility: [facility] Start: 05-18-2025 Dr. Castro moy DO -[facility] Work Phone: Start: 05-13-2025 ambulatory Castro [facility] Facility: [facility] Start: 05-13-2025 Dr. aCstro moy DO -[facility] Work Phone: Start: 05-11-2025 ambulatory [facility] Facility: [facility] Start: 05-11-2025 Dr. Castro moy DO -[facility] Work Phone: Start: 05-07-2025 ambulatory [facility] Facility: [facility] Start: 05-07-2025 Dr. Castro moy DO -[facility] Work Phone: Start: 05-04-2025 ambulatory Castro Ferrara Facility: [facility] Start: 05-04-2025 Dr. Castro moy DO -[facility] Work Phone: Start: 04-29-2025 End: 04-29-[address] Castro Ferrara DO Work Phone: [facility] Work Phone: Start: 04-29-2025 End: 04-29-2025 Dr. Castro Ferrara DO -[facility] Work Phone: Start: 04-28-2025 End: 04-29-2025 ambulatory Sue Roberts NP Facility:[facility] Start: 04-28-2025 Dr. Castro moy DO -[facility] Work Phone: Start: 04-27-2025 ambulatory Castro Ferrara Facility: [facility] Start: 04-27-2025 Dr. Castro moy DO -[facility] Work Phone: Start: 04-20-2025 ambulatory Castro Ferrara Facility: [facility] Start: 04-20-2025 Dr. Castro moy DO -[facility] Work Phone: Start: 04-18-2025 End: 04-18-2025 Dr. Castro Ferrara DO Work Phone: -Emergency Department Work Phone: Start: 04-18-2025 End: 04-18-2025 Emergency department patient visit Dr. Castro Ferrara DO Work Phone: [facility] Work Phone: Start: 04-15-2025 End: 04-15-2025 Office outpatient visit 25 minutes Vaishnavi Fry DO Work Phone: Gastroenterology and Hepatology Outpatient [facility] Comment on above: Other cirrhosis of l iver (Primary Dx); Hepatic encephalopathy; Metabolic dysfunction-associated steatohepatitis (MASH) Start: 04-15-2025 ambulatory SELF SELF Facility:[facility] Start: 04-13-2025 ambulatory [facility] Facility: [facility] Start: 04-13-2025 Dr. Castro moy -[facility] Work Phone: Start: 04-08-2025 ambulatory [facility] Facility: [facility] Start: 04-08-2025 End: 04-08-[address] Castro Ferrara DO Work Phone: [facility] Work Phone: Start: 04-08-2025 End: 04-08-2025 Sue Roberts [employer]C -Pulmonary Services/Neurology Work Phone: Start: 04-08-2025 End: 04-08-2025 ambulatory Sue Roberts NP Facility:[facility] Start: 04-06-2025 ambulatory [facility] Facility: [facility] Start: 04-06-2025 Dr. Castro moy -[facility] Work Phone: Start: 03-30-2025 ambulatory [facility] Facility: [facility] Start: 03-30-2025 Dr. Castro moy -[facility] Work Phone: Start: 03-25-2025 End: 03-25-2025 Sue Roberts [employer] -[facility] Work Phone: Start: 03-25-2025 End: 03-25-2025 ambulatory [facility] Start: 03-23-2025 End: 03-23-[address] Castro Ferrara DO Work Phone: [facility] Work Phone: Start: 03-23-2025 End: 03-23-2025 Vaishnavi Bob [employer]C [facility] Work Phone: Start: 03-23-2025 ambulatory [facility]: [facility] Start: 03-23-2025 Dr. Castro moy -[facility] Work Phone: Start: 03-23-2025 End: 03-23-2025 ambulatory [facility] Facility:[facility] Start: 03-17-2025 End: 03-17-2025 Vaishnavi REYES -[facility] Work Phone: Start: 03-17-2025 End: 03-17-2025 ambulatory [facility] Start: 03-16-2025 ambulatory [facility]: [facility] Start: 03-16-2025 Dr. Castro moy DO -[facility] Work Phone: Start: 03-12-2025 ambulatory [facility]: [facility] Start: 03-12-2025 Dr. Castro moy DO -[facility] Work Phone: Start: 03-10-2025 ambulatory [facility]: [facility] Start: 03-10-2025 Dr. Castro moy DO -[facility] Work Phone: Start: 03-09-2025 ambulatory [facility] Facility: [facility] Start: 03-09-2025 Dr. Castro moy DO -[facility] Work Phone: Start: 03-06-2025 ambulatory [facility]: [facility] Start: 03-06-2025 Dr. Castro moy -[facility] Work Phone: Start: 02-13-2025 End: 03-06-2025 Evaluation and management of inpatient Fernanda Parra MD Work Phone: [id number] Start: 02-12-2025 End: 02-13-2025 Dr. Castro Ferrara DO Work Phone: -Emergency Department Work Phone: Start: 02-12-2025 End: 02-13-2025 Emergency department patient visit Dr. Castro Ferrara DO Work Phone: [facility] Work Phone: Start: 02-12-2025 End: 02-12-2025 Dr. Castro Ferrara DO -Laboratory Work Phone: Start: 02-11-2025 End: 02-12-2025 ambulatory [facility] Facility:[facility] Start: 02-11-2025 Dr. Castro moy DO -[facility] Work Phone: Start: 02-09-2025 ambulatory [facility]: [facility] Start: 02-09-2025 Dr. Castro moy DO -[facility] Work Phone: Start: 02-02-2025 ambulatory [facility]: [facility] Start: 02-02-2025 Dr. Castro moy DO -[facility] Work Phone: Start: 01-28-2025 End: 01-28-2025 ambulatory [facility] Start: 01-28-2025 End: 01-28-2025 Dr. Niels Flores MD -[facility] Work Phone: Start: 01-26-2025 ambulatory [facility]: [facility] Start: 01-26-2025 Dr. Castro moy DO -[facility] Work Phone: Start: 01-22-2025 Dr. Bruce Calderon DO -Laboratory Work Phone: Start: 01-22-2025 ambulatory Bruce Calderon Facility: [facility] Start: 01-19-2025 ambulatory [facility]: [facility] Start: 01-19-2025 Dr. Castro moy DO -[facility] Work Phone: Start: 01-05-2025 ambulatory [facility]: [facility] Start: 01-05-2025 Dr. Castro moy DO -[facility] Work Phone: Start: 01-02-2025 ambulatory [facility]: [facility] Start: 01-02-2025 Dr. Castro moy DO -[facility] Work Phone: Start: 12-31-2024 End: 12-31-2024 Dr. Castro Ferrara DO Work Phone: -[facility] Work Phone: Start: 12-31-2024 End: 12-31-2024 [facility] Start: 12-29-2024 ambulatory [facility]: [facility] Start: 12-29-2024 Dr. Castro moy DO -[facility] Work Phone: Start: 12-24-2024 ambulatory [facility]: [facility] Start: 12-24-2024 Dr. Castro moy DO -[facility] Work Phone: Start: 12-22-2024 ambulatory [facility]: [facility] Start: 12-22-2024 Dr. Castro moy DO -[facility] Work Phone: Start: 12-19-2024 ambulatory [facility]: [facility] Start: 12-19-2024 Dr. Castro moy DO -[facility] Work Phone: Start: 12-18-2024 End: 12-19-2024 Evaluation and management of inpatient Carly Mane MD Work Phone: [id number] Comment on above: Acute candidal endoc arditis Start: 12-17-2024 End: 12-18-2024 Dr. Marquis Gomes DO -Emergency Department Work Phone: Start: 12-17-2024 End: 12-18-2024 Emergency department patient visit [facility] Facility:[facility] Start: 12-16-2024 ambulatory [facility]: [facility] Start: 12-16-2024 Dr. Alonso connor MD -[facility] Start: 12-16-2024 End: 12-16-2024 Dr[facility] Start: 12-16-2024 End: 12-16-2024 Emergency department patient visit [facility] Facility:[facility] Start: 12-15-2024 ambulatory [facility]: [facility] Start: 12-15-2024 Dr. Castro moy DO -[facility] Work Phone: Start: 12-08-2024 ambulatory [facility]: [facility] Start: 12-08-2024 Dr. Castro moy DO -[facility] Work Phone: Start: 12-03-2024 ambulatory [facility]: [facility] Start: 12-03-2024 Dr. Castro moy DO -[facility] Work Phone: Start: 12-01-2024 ambulatory [facility]: [facility] Start: 12-01-2024 Dr. Castro moy DO -[facility] Work Phone: Start: 11-25-2024 End: 11-25-2024 Dr. Timmy Miranda MD -[facility] Work Phone: Start: 11-25-2024 End: 11-25-2024 ambulatory Timmy Miranda Facility:[facility] Start: 11-24-2024 End: 11-25-2024 ambulatory Timmylong Miranda Facility:[facility] Start: 11-24-2024 Dr. Castro moy DO -[facility] Work Phone: Start: 11-17-2024 ambulatory [facility]: [facility] Start: 11-17-2024 Dr. Castro moy -[facility] Work Phone: Start: 11-03-2024 ambulatory [facility]: [facility] Start: 11-03-2024 Dr. Castro moy DO -[facility] Work Phone: Start: 10-27-2024 ambulatory [facility]: [facility] Start: 10-27-2024 Dr. Castro moy -[facility] Work Phone: Start: 10-22-2024 End: 10-22-2024 Office outpatient visit 25 minutes Kelby Chance APRN-SURGICAL SALES REPRESENTATIVE Work Phone: [facility] Gastrointestinal Surgery [facility] [place] Comment on above: Other cirrhosis of l iver (Primary Dx) Start: 10-22-2024 ambulatory SELF SELF Facility:[facility] Start: 10-20-2024 ambulatory [facility]: [facility] Start: 10-20-2024 Dr. Castro moy DO -[facility] Work Phone: Start: 10-13-2024 ambulatory Castro DavisJosias Facility: [facility] Start: 10-08-2024 End: 10-08-2024 ambulatory Castro DavisJosias Facility:[facility] Start: 10-06-2024 ambulatory Castro DavisJosias [facility]: [facility] Start: 09-29-2024 ambulatory Castro DavisJosias Facility: [facility] Start: 09-22-2024 ambulatory Castro DavisJosias Facility: [facility] Start: 09-15-2024 ambulatory Castro Josias Facility: [facility] Start: 09-08-2024 ambulatory Castro DavisJosias Facility: [facility] Start: 09-01-2024 ambulatory Castro DavisJosias Facility: [facility] Start: 08-25-2024 ambulatory Castro DavisJosias Facility: [facility] Start: 08-18-2024 ambulatory Castro DavisJosias Facility: [facility] Start: 08-11-2024 ambulatory Castro DavisJosias Facility: [facility] Start: 08-07-2024 ambulatory Castro DavisJosias Facility: [facility] Start: 08-04-2024 ambulatory Castro DavisJosias Facility: [facility] Start: 07-31-2024 End: 07-31-2024 ambulatory Niels Flores Facility:[facility] Start: 07-28-2024 ambulatory Castro DavisJosias Facility: [facility] Start: 07-22-2024 ambulatory Castro DavisJosias Facility: [facility] Start: 07-21-2024 ambulatory Castro DavisJosias [facility]: [facility] Start: 04-16-2024 End: 04-16-2024 Office outpatient visit 25 minutes Vaishnavi Fry DO Work Phone: Gastroenterology and Hepatology Outpatient [facility] Comment on above: Other cirrhosis of l iver (Primary Dx) Start: 04-02-2024 End: 04-02-2024 Subsequent hospital visit by physician Ronnie Ferrari MD Work Phone: Cardiology [facility] Comment on above: SSS (sick sinus synd theodora) Start: 03-24-2024 End: 03-24-2024 Subsequent hospital visit by physician Carla ROSE Work Phone: [facility] [place] Start: 12-31-2023 Non-patient / Non-visit Dr. Shailesh Ferrara Work Phone: [facility] Work Phone: Start: 12-26-2023 End: 12-26-[address] Castro Ferrara Work Phone: [facility] Work Phone: Start: 12-26-2023 End: 12-26-[address] Castro Ferrara Work Phone: [facility]-Ultrasound, [facility] Work Phone: Start: 12-24-2023 Non-patient / Non-visit Dr. Shailesh Ferrara Work Phone: [facility] Work Phone: Start: 12-17-2023 Non-patient / Non-visit Dr. Shailesh Ferrara Work Phone: [facility] Work Phone: Start: 12-12-2023 End: 12-12-[address] Castro Ferrara Work Phone: [facility] Work Phone: Start: 12-10-2023 Non-patient / Non-visit Dr. Shailesh Ferrara Work Phone: [facility] Work Phone: Start: 12-05-2023 End: 12-05-2023 Office outpatient visit 25 minutes Kelby Chance APRN-SURGICAL SALES REPRESENTATIVE Work Phone: [facility] Gastro[facility] [place] Comment on above: Other cirrhosis of l iver (Primary Dx); Cirrhosis of liver without ascites, unspecified hepatic cirrhosis type; Frailty; Physical deconditioning Start: 12-03-2023 Non-patient / Non-visit Dr. Shailesh Ferrara Work Phone: [facility] Work Phone: Start: 11-26-2023 Non-patient / Non-visit Dr. Shailesh Ferrara Work Phone: [facility] Work Phone: Start: 11-19-2023 Non-patient / Non-visit Dr. Shailesh Davisutzman Work Phone: [facility] Work Phone: Start: 11-12-2023 Non-patient / Non-visit Dr. Shailesh Ferrara Work Phone: [facility] Work Phone: Start: 11-05-2023 Non-patient / Non-visit Dr. Shailesh verduzco Josias Work Phone: [facility] Work Phone: Start: 10-29-2023 Non-patient / Non-visit Dr. Shailesh Ferrara Work Phone: [facility] Work Phone: Start: 10-22-2023 Non-patient / Non-visit Dr. Shailesh Ferrara Work Phone: [facility] Work Phone: Start: 10-15-2023 Non-patient / Non-visit Dr. Shailesh Ferrara Work Phone: [facility] Work Phone: Start: 10-08-2023 Non-patient / Non-visit Dr. Shailesh Ferrara Work Phone: [facility] Work Phone: Start: 10-03-2023 End: 10-03-2023 Ashlee Chatman Central Scheduling Start: 10-03-2023 End: 10-03-[address] Castro Ferrara Work Phone: [facility] Start: 10-01-2023 Non-patient / Non-visit Dr. Shailesh Ferrara Work Phone: [facility] Work Phone: Start: 09-24-2023 Non-patient / Non-visit Dr. Shailesh Ferrara Work Phone: [facility] Work Phone: Start: 09-19-2023 End: 09-19-[address] Castro Ferrara Work Phone: [facility] Work Phone: Start: 09-17-2023 Non-patient / Non-visit Dr. Shailesh Ferrara Work Phone: [facility] Work Phone: Start: 09-12-2023 End: 09-12-[address] Castro Ferrara Work Phone: [facility] Work Phone: Start: 09-10-2023 Non-patient / Non-visit Dr. Shailesh Ferrara Work Phone: [facility] Work Phone: Start: 09-03-2023 Non-patient / Non-visit Dr. Shailesh Ferrara Work Phone: [facility] Work Phone: Start: 08-27-2023 Non-patient / Non-visit Dr. Shailesh Ferrara Work Phone: [facility] Work Phone: Start: 08-20-2023 Non-patient / Non-visit Dr. Shailesh Ferrara Work Phone: [facility] Work Phone: Start: 08-13-2023 Non-patient / Non-visit Dr. Shailesh Ferrara Work Phone: [facility] Work Phone: Start: 08-07-2023 End: 08-07-[address] Castro Ferrara Work Phone: [facility] Work Phone: Start: 08-06-2023 Non-patient / Non-visit Dr. Shailesh Ferrara Work Phone: [facility] Work Phone: Start: 07-31-2023 End: 07-31-[address] Castro Ferrara Work Phone: [facility] Work Phone: Start: 07-31-2023 End: 07-31-[address] Castro Ferrara Work Phone: [facility] Work Phone: Start: 07-30-2023 Non-patient / Non-visit Dr. Shailesh Ferrara Work Phone: [facility] Work Phone: Start: 07-23-2023 Non-patient / Non-visit Dr. Shailesh Ferrara Work Phone: [facility] Work Phone: Start: 07-16-2023 Non-patient / Non-visit Dr. Shailesh Ferrara Work Phone: [facility] Work Phone: Start: 07-13-2023 End: 07-13-2023 Office outpatient visit 25 minutes Vaishnavi Fry DO Work Phone: Gastroenterology and Hepatology [facility] Comment on above: Other cirrhosis of l iver (Primary Dx) Start: 07-11-2023 End: 07-11-[address] Castro Ferrara Work Phone: [facility] Work Phone: Start: 07-11-2023 End: 07-11-[address] Castro Ferrara Work Phone: [facility]-Laboratory, [facility] Start: 07-09-2023 Non-patient / Non-visit Dr. Shailesh Ferrara Work Phone: [facility] Work Phone: Start: 07-02-2023 Non-patient / Non-visit Dr. Shailesh Ferrara Work Phone: [facility] Work Phone: Start: 06-27-2023 Non-patient / Non-visit Dr. Shailesh Ferrara Work Phone: [facility] Work Phone: Start: 06-25-2023 Non-patient / Non-visit Dr. Shailesh Ferrara Work Phone: [facility] Work Phone: Start: 06-18-2023 Non-patient / Non-visit Dr. Shailesh Ferrara Work Phone: [facility] Work Phone: Start: 06-15-2023 Non-patient / Non-visit Dr. Shailesh Ferrara Work Phone: [facility] Work Phone: Start: 06-11-2023 End: 06-18-[address] Castro Ferrara Work Phone: [facility]-Laboratory Work Phone: Start: 06-11-2023 End: 06-11-[address] Castro Ferrara Work Phone: [facility] Work Phone: Start: 06-08-2023 Non-patient / Non-visit Dr. Shailesh Ferrara Work Phone: [facility] Work Phone: Start: 06-06-2023 Non-patient / Non-[facility] [facility] Work Phone: Start: 06-04-2023 End: 06-04-[address] Castro Ferrara Work Phone: [facility] Work Phone: Start: 06-04-[address] Castro Ferrara Work Phone: [facility] Start: 06-04-2023 Non-patient / Non-[facility]ail[facility]: Start: 05-28-2023 Non-patient / Non-visit Dr. Shailesh Ferrara Work Phone: [facility] Work Phone: Start: 05-25-2023 Non-patient / Non-visit Dr. Shailesh Ferrara Work Phone: [facility] Work Phone: Start: 05-23-2023 Non-patient / Non-visit Dr. Shailesh Ferrara Work Phone: [facility] Work Phone: Start: 05-21-2023 Non-patient / Non-visit Dr. Shail[facility] Ferr[facility] Work [facility]: Start: 05-14-2023 Non-patient / Non-visit Dr. Shailesh Ferrara Work Phone: [facility] Work Phone: Start: 05-07-2023 Non-patient / Non-visit Dr. Shailesh Ferrara Work Phone: [facility] Work Phone: Start: 04-30-2023 Non-patient / Non-visit Dr. Shailesh Ferrara Work Phone: [facility] Work Phone: Start: 04-23-2023 Non-patient / Non-visit Dr. Shailesh Ferrara Work Phone: [facility] Work Phone: Start: 04-19-2023 End: 04-19-[address] Castro Ferrara Work Phone: [facility] Work Phone: Start: 04-19-2023 End: 04-19-[address] Castro Ferrara Work Phone: [facility]-Laboratory Work Phone: Start: 04-17-2023 Non-patient / Non-visit Dr. Shaielsh Ferrara Work Phone: [facility] Work Phone: Start: 04-16-2023 Non-patient / Non-visit Dr. Shailesh Ferrara Work Phone: [facility] Work Phone: Start: 04-09-2023 End: 04-09-[address] Castro Ferrara Work Phone: [facility] Work Phone: Start: 04-09-2023 Non-patient / Non-visit Dr. Shailesh Ferrara Work Phone: [facility] Work Phone: Start: 04-04-2023 End: 04-04-[address] Castro Ferrara Work Phone: [facility] Work Phone: Start: 04-02-2023 End: 04-02-[address] Castro Ferrara Work Phone: [facility] Work Phone: Start: 03-29-2023 End: 03-29-2023 Emergency department patient visit Dr. Castro Ferrara Work Phone: [facility] Work Phone: Start: 03-29-2023 End: 03-29-2023 Dr. Castro Ferrara Work Phone: [facility]-Emergency Department Start: 03-29-2023 Non-patient / Non-visit Dr. Shailesh Ferrara Work Phone: [facility] Start: 03-29-2023 End: 03-29-2023 Admission to same day surgery center Dr. Castro Ferrara Work Phone: [facility]-Health Clinician/Special Procedures Start: 03-29-2023 End: 03-29-[address] Castro Ferrara Work Phone: [facility] Work Phone: Start: 03-29-2023 End: 03-29-2023 Dr. Castro Ferrara Work Phone: [facility]-Health Clinician/Special Procedures Start: 03-28-2023 End: 03-28-2023 Patient encounter procedure Darrel Garcia MD Work Phone: [facility] Comment on above: Urinary frequency (P rimary Dx) Start: 03-27-2023 End: 03-27-[address] Castro Ferrara Work Phone: [facility] Start: 03-27-2023 End: 03-27-2023 Dr. Castro Ferrara Work Phone: [facility] Start: 03-26-2023 End: 03-26-[address] Castro Ferrara Work Phone: [facility] Start: 03-26-2023 End: 03-26-2023 Dr. Castro Ferrara Work Phone: [facility] Start: 03-19-2023 Non-patient / Non-visit Dr. Shailesh Ferrara Work Phone: [facility] Start: 03-19-2023 Dr. Castro moy Work Phone: [facility] Start: 03-12-2023 Non-patient / Non-visit Dr. Domingo Atkinson Work Phone: [facility] Start: 03-12-2023 Dr. Castro moy Work Phone: [facility] Start: 03-12-2023 End: 03-12-[address] Vinny Atkinson Work Phone: [facility] Work Phone: Start: 03-12-2023 End: 03-12-[address] Vinny Atkinson Work Phone: [facility] Start: 03-12-2023 End: 03-12-2023 Dr. Castro Ferrara Work Phone: [facility] Start: 03-08-2023 End: 03-08-[address] Vinny Atkinson Work Phone: [facility] Start: 03-08-2023 End: 03-08-2023 Dr. Castro Ferrara Work Phone: [facility] Start: 03-05-2023 End: 03-05-[address] Vinny Atkinson Work Phone: [facility] Start: 03-05-2023 End: 03-05-2023 Dr. Castro Ferrara Work Phone: [facility] Start: 03-01-2023 Non-patient / Non-visit Dr. Domingo Atkinson Work Phone: [facility] Start: 03-01-2023 Dr. Castro moy Work Phone: [facility] Start: 02-28-2023 Non-patient / Non-visit Dr. Domingo Atkinson Work Phone: [facility] Start: 02-28-2023 Dr. Castro moy Work Phone: [facility] Start: 02-26-2023 Non-patient / Non-visit Dr. Domingo Atkinson Work Phone: [facility] Start: 02-26-2023 Dr. Castro moy Work Phone: [facility] Start: 02-23-2023 Non-patient / Non-visit Dr. Domingo Atkinson Work Phone: [facility] Start: 02-23-2023 Dr. Castro moy Work Phone: [facility] Start: 02-02-2023 End: 02-16-[address] Vinny Atkinson Work Phone: [facility] Work Phone: Start: 02-02-2023 End: 02-16-[address] Vinny Atkinson Work Phone: [facility] Start: 02-02-2023 End: 02-16-2023 Dr. Castro [facility]ara [facility] Start: 01-31-2023 Non-patient / Non-visit Dr. Domingo Atkinson Work Phone: [facility] Start: 01-31-2023 Dr. Castro moy Work Phone: [facility] Start: 01-29-2023 Non-patient / Non-visit Dr. Domingo Atkinson Work Phone: [facility] Start: 01-29-2023 Dr. Castro moy Work Phone: [facility] Start: 01-24-2023 End: 01-24-[address] Vinny Atkinson Work Phone: [facility] Work Phone: Start: 01-24-2023 End: 01-24-[address] Vinny Atkinson Work Phone: [facility] Start: 01-24-2023 End: 01-24-2023 Dr. Castro Ferrara Work Phone: [facility] Start: 01-22-2023 Non-patient / Non-visit Dr. Domingo Atkinson Work Phone: [facility] Start: 01-22-2023 Dr. Castro moy Work Phone: [facility] Start: 01-19-2023 Non-patient / Non-visit Dr. oDmingo Atkinson Work Phone: [facility] Inpatient Physicians Start: 01-19-2023 Dr. Castro moy Work Phone: [facility] Start: 01-18-2023 Non-patient / Non-visit Dr. Domingo Atkinson Work Phone: [facility] Start: 01-18-2023 Dr. Castro moy Work Phone: [facility] Start: 01-18-2023 Non-patient / Non-visit Dr. Domingo Atkinson Work Phone: [facility] Start: 01-18-2023 Dr. Castro moy Work Phone: [facility] Start: 01-17-2023 Non-patient / Non-visit Dr. Domingo Atkinson Work Phone: [facility] Start: 01-17-2023 Dr. Castro moy Work Phone: [facility] Start: 01-17-2023 Non-patient / Non-visit Dr. Domingo Atkinson Work Phone: [facility] Start: 01-17-2023 End: 01-19-2023 Evaluation and management of inpatient Dr. Vinny Atkinson [facility] Start: 01-17-2023 End: 01-19-2023 Dr. Castro Ferrara [facility] Start: 01-17-[address] Vinny Atkinson Work Phone: [facility]-Laboratory Start: 01-15-2023 End: 01-15-2023 Office outpatient visit 25 minutes Kelby Chance APRN-SURGICAL SALES REPRESENTATIVE Work Phone: [facility]enterology [facility] Hepatology [facility] Comment on above: Cirrhosis of liver w ithout ascites, unspecified hepatic cirrhosis type (Primary Dx) Start: 01-03-2023 End: 01-03-[address] Vinny Atkinson Work Phone: [facility] Work Phone: Start: 01-03-2023 End: 01-03-[address] Vinny Atkinson Work Phone: [facility]-Laboratory Start: 01-03-2023 End: 01-03-2023 Dr. Castro Ferrara [facility] Start: 12-08-2022 End: 12-08-[address] Vinny Atkinson Work Phone: [facility] Work Phone: Start: 12-08-2022 End: 12-08-[address] Vinny Atkinson Work Phone: [facility] Start: 12-08-2022 End: 12-08-2022 Dr. Castro Ferrara Work Phone: [facility] Start: 12-06-2022 Non-patient / Non-visit Dr. Domingo Atkinson Work Phone: [facility] Start: 12-06-2022 End: 12-06-[address] Vinny Atkinson Work Phone: [facility]-Cardiovascular Services Start: 12-06-2022 End: 12-06-[address] Vinny Atkinson Work Phone: [facility] Work Phone: Start: 12-06-2022 End: 12-06-[address] Vinny Atkinson [facility] Start: 12-06-[address] Vinny Atkinson [facility] Start: 12-06-2022 End: 12-06-2022 Dr. Castro Ferrara [facility] Start: 11-27-2022 End: 11-27-[address] Vinny Atkinson Work Phone: [facility] Start: 11-06-2022 End: 11-06-[address] Vinny Atkinson [facility] Start: 10-16-2022 End: 10-16-[address] Vinny Atkinson Work Phone: [facility] Neurology Start: 10-16-2022 End: 10-18-[address] Vinny Atkinson [facility] Start: 09-27-2022 End: 09-27-[address] Vinny Atkinson Work Phone: [facility] Gastroenterology Start: 09-18-2022 End: 09-18-[address] Vinny Atkinson Work Phone: [facility] Work Phone: Start: 09-18-2022 End: 09-18-[address] Vniny Atkinson [facility] Start: 09-18-[address] Vinny Atkinson Work Phone: [facility]-Laboratory Start: 08-28-2022 End: 09-18-[address] Vinny Atkinson Work Phone: [facility] Work Phone: Start: 08-28-2022 End: 09-18-[address] Vinny Atkinson Work Phone: [facility]-[employer] Start: 08-17-2022 End: 08-17-[address] Vinny Atkinson Work Phone: [facility] Work Phone: Start: 08-17-2022 End: 08-17-[address] Vinny Atkinson Work Phone: [facility]-Laboratory Start: 08-03-[address] Vinny Atkinson Work Phone: [facility]-Laboratory Start: 07-31-2022 End: 07-31-[address] Vinny Atkinson Work Phone: [facility] Work Phone: Start: 07-31-2022 End: 07-31-[address] Vinny Atkinson Work Phone: [facility] Start: 07-18-2022 Non-patient / Non-visit Dr. Domingo Atkinson Work Phone: [facility] Phys[facility] Start: 07-17-2022 Non-patient / Non-visit Dr. Domingo Atkinson Work Phone: [facility] Start: 07-17-2022 Non-patient / Non-visit Dr. Domingo Atkinson Work Phone: [facility] Inpatient Physicians Start: 07-16-2022 Non-patient / Non-visit Dr. Domingo Atkinson Work Phone: [facility] Start: 07-16-2022 Non-patient / Non-visit Dr. Domingo Atkinson Work Phone: [facility] Phys[facility] Start: 07-15-2022 End: 07-18-2022 Non-patient / Non-visit Dr. Vinny Atkinson Work Phone: [facility] Start: 07-15-2022 End: 07-18-2022 Evaluation and management of inpatient Dr. Vinny Atkinson Work Phone: [facility]-Progressive Care Unit Start: 07-14-2022 End: 07-14-2022 Office outpatient visit 25 minutes Ethel GOMEZ Work Phone: [facility]ology [facility] Hepatology [facility] Comment on above: Cirrhosis of liver w ithout ascites, unspecified hepatic cirrhosis type (Primary Dx) Start: 07-05-2022 End: 07-05-[address] Vinny Atkinson Work Phone: [facility] Work Phone: Start: 07-05-2022 End: 07-05-[address] Vinny Atkinson [facility] Start: 07-05-[address] Vinny Atkinson [facility] Start: 06-14-2022 End: 06-18-[address] Vinny Atkinson [facility] Start: 06-06-2022 End: 06-06-[address] Vinny Atkinson Work Phone: [facility] Start: 06-06-[address] Vinny Atkinson Work Phone: [facility] On[facility] Start: 05-23-2022 End: 05-23-[address] Vinny Atkinson Work Phone: [facility] Start: 05-17-2022 End: 05-17-[address] Vinny Atkinson Work Phone: [facility]-Laboratory Start: 05-08-2022 End: 05-08-[address] Vinny Atkinson Work Phone: [facility] Start: 04-24-2022 End: 04-24-[address] Vinny Atkinson Work Phone: [facility] Neurology Start: 04-14-2022 End: 04-14-[address] Vinny Atkinson [facility] Start: 04-08-2022 End: 04-08-2022 Emergency department patient visit Dr. Vinny Atkinson Work Phone: [facility]-Emergency Department Start: 04-07-[address] Vinny Atkinson Work Phone: [facility]-Laboratory Start: 04-06-2022 Non-patient / Non-visit Dr. Domingo Atkinson Work Phone: [facility] Phys[facility] Start: 04-05-2022 Non-patient / Non-visit Dr. Domingo Atkinson Work Phone: [facility] Start: 04-04-2022 Non-patient / Non-visit Dr. Domingo Atkinson Work Phone: [facility] Start: 04-04-2022 Non-patient / Non-visit Dr. Domingo Atkinson Work Phone: [facility] In[facility] Physicians Start: 04-04-2022 End: 04-06-2022 Evaluation and management of inpatient Dr. Vinny Atkinson Work Phone: [facility]-Progressive Care Unit Start: 04-03-[address] Vinny Atkinson Work Phone: [facility]-Laboratory Start: 03-17-2022 End: 03-17-2022 Subsequent hospital visit by physician Kelby CARLOSSURGICAL SALES REPRESENTATIVE Work Phone: [facility] Comment on above: Arrived Start: 03-03-2022 End: 03-03-[address] Vinny Atkinson Work Phone: [facility]-Laboratory Start: 02-20-2022 End: 02-20-[address] Vinny Atkinson Work Phone: [facility]-Pulmonary Services/Neurology Start: 02-17-[address] Vinny Atkinson Work Phone: [facility]-Laboratory Start: 02-16-2022 Non-patient / Non-visit Dr. Domingo Atkinson Work Phone: [facility] Start: 02-16-2022 End: 02-16-[address] Vinny Atkinson Work Phone: [facility]-Pulmonary Services/Neurology Start: 02-10-2022 End: 02-16-[address] Vinny Atkinson Work Phone: [facility]-Laboratory Start: 02-09-2022 End: 02-09-[address] Vinny Atkinson Work Phone: [facility]-Sleep Lab Start: 02-01-2022 End: 02-01-[address] Vinny Atkinson Work Phone: [facility] Start: 01-26-2022 End: 01-26-[address] Vinny Atkinson Work Phone: [facility] Start: 01-16-2022 End: 01-16-[address] Vinny Atkinson Work Phone: [facility]-Laboratory Start: 01-12-2022 Non-patient / Non-visit Dr. Domingo Atkinson Work Phone: [facility] Inpatient Physicians Start: 01-12-2022 Non-patient / Non-visit Dr. Domingo Atkinson Work Phone: [facility] Start: 01-11-2022 Non-patient / Non-visit Dr. Domingo Atkinson Work Phone: [facility] Phys[facility] Start: 01-10-2022 Non-patient / Non-visit Dr. Domingo Atkinson Work Phone: [facility] Start: 01-10-2022 End: 01-12-2022 Evaluation and management of inpatient Dr. Vinny Atkinson Work Phone: [facility]-Progressive Care Unit Start: 01-09-2022 End: 01-09-[address] Vinny Atkinson Work Phone: [facility] Neurology Start: 12-27-2021 End: 12-27-[address] Vinny Atkinson [facility] Start: 12-15-2021 End: 12-15-[address] Vinny Atkinson Work Phone: [facility] Start: 12-14-2021 Non-patient / Non-visit Dr. Domingo Atkinson Work Phone: [facility] Start: 12-14-2021 End: 12-14-[address] Vinny Atkinson [facility] Start: 12-14-2021 End: 12-19-[address] Vinny Atkinson [facility] Start: 11-29-2021 End: 11-29-[address] Vinny Atkinson Work Phone[facility] 3rd Flr Start: 11-25-2021 End: 11-25-[address] Vinny Atkinson Work Phone: [facility]-Physical Therapy Start: 11-21-2021 End: 11-21-[address] Vinny Atkinson [facility] Start: 11-16-2021 End: 11-19-[address] Vinny Atkinson [facility] Start: 10-31-2021 End: 10-31-[address] Vinny Atkinson Work Phone: [facility] Start: 10-31-2021 End: 10-31-[address] Vinny Atkinson Work Phone: [facility] Start: 05-24-2021 End: 05-24-2021 ambulatory UNKNOWN PROVIDER Facility:[facility] Start: 05-19-2021 ambulatory UNKNOWN PROVIDER Facili ty:[facility] Procedures Date Procedure Procedure Detail Performing Clinician Start: 06-26-2025 Echocardiography REMUS UNGNAOMIE Start: 06-23-2025 CT of abdomen and pelvis without contrast Dr. Castro Ferrara DO Work Phone: Start: 06-23-2025 Blood count smear mcrscp w/mnl difrntl wbc count Dr. Castro Ferrara DO Work Phone: Start: 06-23-2025 Calculation of international normalized ratio Dr. Castro Ferrara DO Work Phone: Start: 06-23-[address] Castro Ferrara DO Work Phone: Start: 06-23-2025 Mean corpuscular hemoglobin concentration determination Dr. Castro Ferrara DO Work Phone: Start: 06-23-2025 Nucleated red blood cell count procedure Dr. Castro Ferrara DO Work Phone: Start: 06-23-2025 Platelet mean volume determination Dr. Mk Ferrara DO Work Phone: Start: 06-14-2025 End: 06-14-[address] Castro Ferrara DO Work Phone: Start: 06-14-2025 CT of abdomen and pelvis without contrast Dr. Castro Ferrara DO Work Phone: Start: 06-14-2025 Calculation of international normalized ratio Dr. Castro Ferrara DO Work Phone: Start: 06-14-[address] Castro Ferrara DO Work Phone: Start: 06-14-2025 Mean corpuscular hemoglobin concentration determination Dr. Castro Ferrara DO Work Phone: Start: 06-14-2025 Nucleated red blood cell count procedure Dr. Castro Ferrara DO Work Phone: Start: 06-14-2025 Platelet mean volume determination Dr. Mk Ferrara DO Work Phone: Start: 06-14-[address] Mk Ferrara DO Work Phone: Start: 06-11-2025 Calculation of international normalized ratio Dr. Castro Ferrara DO Work Phone: Start: 06-01-2025 Calculation of international normalized ratio Dr. Castro Ferrara DO Work Phone: Start: 05-27-2025 Blood count smear mcrscp w/mnl difrntl wbc count Dr. Castro Ferrara DO Work Phone: Start: 05-27-2025 Calculation of international normalized ratio Dr. Castro Ferrara DO Work Phone: Start: 05-27-[address] Castro Ferrara DO Work Phone: Start: 05-27-2025 Mean corpuscular hemoglobin concentration determination Dr. Castro Ferrara DO Work Phone: Start: 05-27-2025 Nucleated red blood cell count procedure Dr. Castro Ferrara DO Work Phone: Start: 05-27-2025 Platelet mean volume determination Dr. kM Ferrara DO Work Phone: Start: 05-27-2025 Total iron binding capacity measurement Dr. Castro Ferrara DO Work Phone: Start: 04-29-2025 MRI [...] above: Performed By: #### XM #### [facility] ([facility]) [address] [place] [address] Start: 03-05-2025 Assay of magnesium Hien Anderson [...] MD Work Phone: Start: 03-02-2025 Antibody screen RIKA CASTRO Comment on above: Performed By: #### XM #### [facility] ([facility]) [address] [place] [address] Start: 03-02-2025 Blood typing serologic abo Agueda mcconnell MD Work Phone: Start: 03-02-2025 Prothrombin time Key Rizo MD Work Phone: Start: 03-01-2025 Thromboplastin time partial plasma/whole blood Nayeli Casillas MD Work Phone: Start: 03-01-2025 Thromboplastin time partial plasma/whole blood Nayeli Casillas MD Work Phone: Start: 03-01-2025 Thromboplastin time partial plasma/whole blood Nayeli Casillas MD Work Phone: Start: 03-01-2025 Hemodialysis [place] J Kalani JACK Work Phone: Start: 02-28-2025 Prothrombin time Key Rizo MD Work Phone: Start: 02-28-2025 BLOOD CULTURE IDENTIFICATION PANEL Heladio Stiles MD Work Phone: Start: 02-28-2025 Cul [...] Casillas MD Work Phone: Start: 2025 Hemodialysis [place] Kurt ORSE Work Phone: Start: 2025 Thromboplastin time partial plasma/whole blood Nayeli Casillas MD Work Phone: Start: 2025 Antibody screen Hoda Moore MD Work Phone: Start: 2025 Antibody screen RIKA CASTRO Comment on above: Performed By: #### XM #### [facility] (DEFAULT) [address] [place] [id number] Start: 2025 Blood typing serologic abo Agueda mcconnell MD Work Phone: Start: 2025 Prothrombin time Key Rizo MD Work Phone: Start: 02-26-2025 Thromboplastin time partial plasma/whole blood Nayeli Casillas MD Work Phone: Start: 02-25-2025 Assay of magnesium Hien Anderson MD Work Phone: Start: 02-25-2025 Hemodialysis Maria Eugenia [place] Work Phone: Start: 02-25-2025 Thromboplastin time partial plasma/whole blood Nayeli Casillas MD Work Phone: Start: 02-24-2025 Prothrombin time Key Rizo MD Work Phone: Start: 02-24-2025 Hemodialysis Aialin [place] Work Phone: Start: 02-24-2025 Thromboplastin time partial plasma/whole blood Nayeli Casillas MD Work Phone: Start: 02-24-2025 Prothrombin time Key Rizo MD Work Phone: Start: 02-24-2025 Antibody screen Hoda Moore MD Work Phone: Start: 02-24-2025 Antibody screen RIKA CASTRO Comment on above: Performed By: #### XM #### [facility] (DEFAULT) [address] [place] [id number] Start: 02-23-2025 End: 02-24-2025 Assay of magnesium [...] above: Performed By: #### SURGP #### [facility] ([facility]) [address] [place] [address] Start: 02-21-2025 Assay of magnesium Castro A Yann [facility] Work Phone: Start: 02-21-2025 Blood typing serologic abo Agueda mcconnell MD Work Phone: Start: 02-20-2025 Thromboplastin time partial plasma/whole blood Nayeli Casillas MD Work Phone: Start: 02-20-2025 Thromboplastin time partial plasma/whole blood Nayeli Casillas MD Work Phone: Start: 02-20-2025 Hemodialysis Taya Uriarte [facility] Work Phone: Start: 02-20-2025 Assay of magnesium Castro [facility] Work Phone: Start: 02-19-2025 Thromboplastin time partial plasma/whole blood Nayeli Casillas MD Work Phone: Start: 02-19-2025 Thromboplastin time partial plasma/whole blood Nayeli Casillas MD Work Phone: Start: 02-19-2025 Assay of magnesium Castro A [facility] Work Phone: Start: 02-18-2025 Thromboplastin time partial plasma/whole blood Nayeli Casillas MD Work Phone: Start: 02-18-2025 Hemodialysis Kelby Elizondo TANK HOUSE OPERATOR-SURGICAL SALES REPRESENTATIVE Work Phone: Start: 02-18-2025 Thromboplastin time partial plasma/whole blood Nayeli Casillas MD Work Phone: Start: 02-18-2025 Antibody screen Hoda Moore MD Work Phone: Start: 02-18-2025 Antibody screen RIKA CASTRO Comment on above: Performed By: #### XM #### [facility] ([facility]) [address] [place] [address] Start: 02-18-2025 End: 02-18-2025 Assay of magnesium Castro A [facility] Work Phone: Start: 02-18-2025 Blood typing serologic [...] Phone: Start: 02-17-2025 Assay of magnesium Castro A Yann [facility] Work Phone: Start: 02-16-2025 Thromboplastin time partial plasma/whole blood Nayeli Casillas MD Work Phone: Start: 02-16-2025 Hemodialysis Maria Eugenia Landry [facility] Work Phone: Start: 02-16-2025 CONTINUOUS CARDIAC MONITORING STRIP Other Other Start: 02-16-2025 CARDIAC RHYTHM (SCANNED) Other Other OT Start: 02-16-2025 Hemodialysis Maria Eugenia [place]ry [facility] Work Phone: Start: 02-16-2025 Colonoscopy flx dx w/collj spec when pfrmd Elie Sanches MD Work Phone: Start: 02-16-2025 DIAGNOSTIC UPPER ENDOSCOPY Elie Aparicio Work Phone: Start: 02-16-2025 Level iv surg pathology gross&microscopic exam Gen Oh MD Work Phone: Start: 02-16-2025 Creatinine blood Agueda Collins MD Work Phone: Start: 02-15-2025 Blood count platelet automated Nayeli Casillas MD Work Phone: Start: 02-15-2025 Antibody screen Hoda Moore MD Work Phone: Start: 02-15-2025 Antibody screen RIKA CASTRO Comment on above: Performed By: #### XM #### [facility] ([facility]) [address] [place] [id number] Start: 02-15-2025 Blood typing serologic abo Agueda [...] CHRONIC HEPATITIS PANEL(DIALYSIS, ESRD, TIEN) Maria Eugenia ROSE Work Phone: Start: 02-13-2025 Hepatitis b surf antibody hbsab Maria Eugenia ROSE Work Phone: Start: 02-13-2025 Iaad ia hepatitis b surface antigen Maria Eugenia ROSE Work Phone: Start: 03-28-2025 Lactate dehydrogenase ldh Nayeli echavarria MD Work Phone: Start: 02-13-2025 Hemodialysis Maria Eugenia Landry MB Work Phone: Start: 02-13-2025 Ct thorax w/o [...] Phone: Start: 12-31-[address] Catsro lira DO Work Phone: Start: 12-19-2024 Hemodialysis Trina B Santos TANK HOUSE OPERATOR-[facility] Work Phone: Start: 12-19-2024 Creatinine blood Malcom [...] 04-02-2024 CBC AND ELECTRONIC DIFF Aileen Phoenix TANK HOUSE OPERATOR-SURGICAL SALES REPRESENTATIVE Work Phone: Start: 04-02-2024 Complete blood count with white cell differential, automated Aileen Phoenix TANK HOUSE OPERATOR-SURGICAL SALES REPRESENTATIVE Work Phone: Start: 04-02-2024 Creatinine blood Aileen Phoenix TANK HOUSE OPERATOR-SURGICAL SALES REPRESENTATIVE Work Phone: Start: 04-02-2024 Ecg routine ecg w/least 12 lds w/i&r Aileen Phoenix TANK HOUSE OPERATOR-SURGICAL SALES REPRESENTATIVE Work Phone: Start: 03-24-2024 Echo transthorc r-t 2d w/wo m-mode rec f-up/lmtd Aguirre R Nelson ROSE Work Phone: Start: 12-26-2023 Ultrasonography [...] 1996 panel - Serum or Plasma Darrel Garcai MD Work Phone: Start: 01-18-2023 Measurement of [...] panel - Serum or Plasma Kelby Chance TANK HOUSE OPERATOR-SURGICAL SALES REPRESENTATIVE Work Phone: Start: 08-13-2018 Stool Occult Blood (SANDRA) Dr. Castro sutherland Work Phone: Start: 08-13-2018 Dr. Castro Ferrara [...] Jeff Grullon MD Start: 12-18-2016 End: 12-18-2016 [facility] Jeff Grullon MD Start: 10-17-2016 End: [...] CBC W Auto Differential panel - Blood Jnae Torres PA-C Work Phone: Start: 12-08-2013 End: [...] Jeff Grullon MD Start: 09-04-2013 End: 09-04-2013 MMM Jeff Grullon MD Start: 09-04-2013 End: 11-10-2013 [...] 05-08-2013 End: 05-08-2013 Follow Up Appt Other aJne Torres PA-C Work Phone: Start: 05-08-2013 End: 11-10-2013 [facility] Niels Flores MD Start: 05-08-2013 End: 05-08-2013 Program eval implantable in persn dual ld pacer Niels Flores MD Start: 04-24-2013 End: 05-06-2013 *BMP [...] Oswaldo Ken MD Start: 10-24-2012 End: 01-01-2013 *MAILE Ken MD Start: 10-24-2012 End: 10-30-2012 Echocardiography [...] Activity Detail Author Start: 07-24-[address] [facility] Start: 07-24-2028 Urine microalbumin profile DTaP,Tdap,Td Vaccine (2 - Td or Tdap) [facility] Start: 07-01-2028 Diabetes Screening Diabetes Screening [facility] Start: 02-04-2028 Lipid panel LIPID SCREENING [facility] Start: 07-01-2026 Complete blood count Hemoglobin/Hematocrit [facility] Start: 07-01-2026 Creatinine measurement Serum Creatinine [facility] Start: 05-20-2026 Fasting lipid profile LIPID SCREENING [facility] Start: 05-20-2026 Lipid panel LIPID SCREENING [facility] Start: 02-16-2026 Screening for malignant neoplasm of colon [facility] Start: 11-18-2025 End: 11-18-2025 Patient encounter procedure 11/18/2025 11:00 AM EST Office Visit General and Gastrointestinal Surgery [facility] [address] [place] [address] Kelby Chance, TANK HOUSE OPERATOR-SURGICAL SALES REPRESENTATIVE [address] [place], [place] [phone] [facility] Gastro[facility] Start: 10-16-2025 End: 04-15-2026 US Abdomen RUQ US ABDOMEN RUQ/LIVER/GB Imaging Routine Other cirrhosis of liver Expected: 10/16/2025 (Approximate), Expires: 04/15/2026 [facility] Comment on above: Expected: 10/16/2025 (Approximate), Expi res: 04/15/2026 Start: 07-20-2025 Influenza vaccination Influenza Vaccine (#1) [facility] Start: 06-24-2025 End: 06-24-2025 Patient encounter procedure 06/24/2025 1:30 PM EDT Office Visit Gastroenterology and Hepatology Outpatient Care [facility] [address] [place] [address] Vaishnavi Fry, DO [address] [place], [place] [id number] Gastroenterology and Hepatology Outpatient Care [facility] Start: 06-23-2025 [facility] Start: 06-14-2025 [facility] Start: 06-14-2025 [facility] Start: 06-03-2025 End: 06-03-2025 Patient encounter procedure 06/03/2025 11:30 AM EDT Office Visit Gastroenterology and Hepatology Outpatient Care [facility] [address] [place] [address] Vaishnavi Fry A, DO [address] [place] [address] Gastroenterology and Hepatology Outpatient Care [facility] Start: 05-27-2025 [facility] Start: 04-29-2025 Walking distance 6 minutes [facility] Start: 04-18-2025 [facility] Start: 04-16-2025 End: 04-16-2026 AFP TUMOR MARKER AFP TUMOR MARKER Lab Routine Other cirrhosis of liver Expected: 04/16/2025 (Approximate), Expires: 04/16/2026 [facility] Comment on above: Expected: 04/16/2025 (Approximate), Expi res: 04/16/2026 Start: 04-15-2025 End: 04-15-2025 ambulatory Gastroenterology and Hepatology Outpatient Care [facility] Start: 04-08-2025 Measurement of respiratory function [facility] Start: 03-23-2025 Computed tomography of abdomen and pelvis with contrast [facility] Start: 03-23-2025 CT Abdomen and Pelvis W contrast IV [facility] Start: 02-13-2025 End: 02-13-2025 [facility] Start: 02-12-2025 End: 02-12-2025 [facility] Start: 02-03-2025 COVID-19 VACCINE (6 - Pfizer risk season) COVID-19 VACCINE (6 - Pfizer risk season) [facility] Start: 12-29-2024 End: 10-22-2025 US Abdomen RUQ US ABDOMEN RUQ/LIVER/GB Imaging Routine Other cirrhosis of liver Expected: 12/29/2024 (Approximate), Expires: 10/22/2025 [facility] Comment on above: Expected: 12/29/2024 (Approximate), Expi res: 10/22/2025 Start: 12-17-2024 [facility] Start: 12-16-2024 [facility] Start: 12-16-2024 [facility] Start: 11-19-2024 Advance Directive Discussion Advance Directive Discussion [facility] Start: 10-22-2024 End: 10-22-[address] [facility] Comment on above: Expected: 10/22/2024 (Approximate), Expi res: 10/22/2025 Start: 10-22-2024 End: 10-22-2024 Patient encounter procedure 10/22/2024 11:00 AM EST Office Visit [facility] Gastrointestinal [facility] [address] [place] [phone] Kelby Chance, TANK HOUSE OPERATOR-SURGICAL SALES REPRESENTATIVE [address] [place] [address] General and Gastrointestinal [facility] Start: 07-17-2024 End: 04-16-2025 US Abdomen RUQ US ABDOMEN RUQ/LIVER/GB Imaging Routine Other cirrhosis of liver Expected: 07/17/2024 (Approximate), Expires: 04/16/2025 [facility] Comment on above: Expected: 07/17/2024 (Approximate), Expi res: 04/16/2025 Start: 05-01-2024 Hepatitis B Vaccine (7 of 7 - Risk Dialysis Recombivax 3-dose series) Hepatitis B Vaccine (7 of 7 - Risk Dialysis Recombivax 3-dose series) [facility] Start: 04-16-2024 End: 04-16-2024 Patient encounter procedure 04/16/2024 10:30 AM EDT Office Visit Gastroenterology and Hepatology Outpatient Care [facility] [address] [place] [address] Vaishnavi Fry, DO [address] [place] [address] Gastroenterology and Hepatology Outpatient Care [facility] Start: 04-02-2024 End: 04-02-2024 Admission to same day surgery center 04/02/2024 9:45 AM EDT - 04/02/2024 11:00 AM EDT Surgery Cardiovascular [facility] [address] [place] [address] Narciso, All [address] [place] [address] ICD Generator Changeout Cardiovascular Imaging Lab [facility] Comment on above: ICD Generator Changeout Start: 04-02-2024 Subsequent hospital visit by physician 04/02/2024 9:45 AM EDT Hospital Encounter Cardiology [facility] [address] [place] [address] Ronnie Ferrari MD [address] [place] [address] SSS (sick sinus syndrome) [facility] Comment on above: SSS (sick sinus syndrome) Start: 02-28-2024 RSV Vaccine (1 - 1-dose 75+ series) RSV Vaccine (1 - 1-dose 75+ series) [facility] Start: 02-08-2024 Prostate specific antigen measurement PROSTATE CANCER SCREENING DISCUSSION [facility] Start: 01-18-2024 End: 12-05-2024 US Abdomen RUQ US ABDOMEN RUQ/LIVER/GB Imaging Routine Other cirrhosis of liver Cirrhosis of liver without ascites, unspecified hepatic cirrhosis type Frailty Expected: 01/18/2024 (Approximate), Expires: 12/05/2024 [facility] Comment on above: Expected: 01/18/2024 (Approximate), Expi res: 12/05/2024 Start: 12-05-2023 End: 12-05-2023 Patient encounter procedure 12/05/2023 10:00 AM EST Office Visit [facility] and Gastrointestinal Surgery [facility] [address] [place] [address] Kelby Chance, TANK HOUSE OPERATOR-SURGICAL SALES REPRESENTATIVE [address] [place], [place] [id number] [facility] Start: 12-04-2023 Zoster vaccine hzv live for subcutaneous use ZOSTER (SHINGLES) VACCINE (2 of 2) [facility] Start: 07-20-2023 COVID-19 VACCINE () COVID-19 VACCINE () [facility] Start: 07-20-2023 End: 07-12-2024 CT Abdomen WO and W contrast IV CT ABDOMEN WITH AND WITHOUT CONTRAST Imaging Routine Other cirrhosis of liver Expected: 07/20/2023 (Approximate), Expires: 07/12/2024 [facility] Comment on above: Expected: 07/20/2023 (Approximate), Expi res: 07/12/2024 Start: 07-20-2023 Influenza vaccination INFLUENZA VACCINE (#1) [facility] Start: 05-08-2023 End: 05-08-2023 Patient encounter procedure 05/08/2023 Office Visit Gastroenterology Vaishnavi Fry, DO [address] [place] [id number] Gastroenterology and Hepatology [facility] Start: 03-29-2023 [facility] Start: 03-29-2023 Plain chest X-ray Chest 1 View (Portable) [facility] Start: 03-29-2023 XR Chest Single view [facility] Start: 03-28-2023 End: 03-28-2024 Bacteria identified in Urine by Culture [facility] Comment on above: Expected: 03/28/2023, Expires: Start: 01-19-2023 Patient discharge [facility] Start: 01-18-2023 Application of intermittent pneumatic compression device [facility] Start: 01-18-2023 Administration of blood product [facility] Start: 01-17-2023 Following clinical pathway protocol [facility] Start: 01-17-2023 Assessment of risk of venous thromboembolism [facility] Start: 01-17-2023 Insertion of catheter into peripheral vein [facility] Start: 01-17-2023 Oxygen therapy [facility] Start: 01-17-2023 Providing care according to standard [facility] Start: 01-17-2023 Provision of activity privileges [facility] Start: 01-17-2023 Referral to gastroenterology service [facility] Start: 01-17-2023 Referral to water resource specialist [facility] Start: 01-17-2023 [facility] Start: 01-17-2023 Verification routine [facility] Start: 01-17-2023 Admission procedure [facility] Start: 01-17-2023 Administration of blood product [facility] Start: 01-17-2023 Transfusion of red blood cells [facility] Start: 01-17-2023 Leukocyte reduced red blood cells [facility] Start: 01-15-2023 End: 01-15-2024 AFP TUMOR MARKER AFP TUMOR MARKER Lab Routine Cirrhosis of liver without ascites, unspecified hepatic cirrhosis type Expected: 01/15/2023 (Approximate), Expires: 01/15/2024 [facility] Comment on above: Expected: 01/15/2023 (Approximate), Expi res: 01/15/2024 Start: 01-15-2023 End: 01-15-2024 CHEM 6 (LYTES, BUN CREA) CHEM 6 (LYTES, BUN CREA) Lab Routine Cirrhosis of liver without ascites, unspecified hepatic cirrhosis type Expected: 01/15/2023, Expires: 01/15/2024 [facility] Comment on above: Expected: 01/15/2023, Expires: Start: 01-15-2023 End: 01-15-2024 Complete blood count with white cell differential, automated CBC, EDIF, PLATELET Lab Routine Cirrhosis of liver without ascites, unspecified hepatic cirrhosis type Expected: 01/15/2023 (Approximate), Expires: 01/15/2024 [facility] Comment on above: Expected: 01/15/2023 (Approximate), Expi res: 01/15/2024 Start: 01-15-2023 End: 01-15-2024 Hepatic function 2000 panel - Serum or Plasma HEPATIC FUNCTION PANEL Lab Routine Cirrhosis of liver without ascites, unspecified hepatic cirrhosis type Expected: 01/15/2023 (Approximate), Expires: 01/15/2024 [facility] Comment on above: Expected: 01/15/2023 (Approximate), Expi res: 01/15/2024 Start: 01-15-2023 End: 01-15-2024 PROTIME-INR PROTIME-INR Lab Routine Cirrhosis of liver without ascites, unspecified hepatic cirrhosis type Expected: 01/15/2023 (Approximate), Expires: 01/15/2024 [facility] Comment on above: Expected: 01/15/2023 (Approximate), Expi res: 01/15/2024 Start: 01-15-2023 End: 01-15-2024 US.doppler Abdominal vessels US ABDOMEN LIVER DOPPLER Imaging Routine Cirrhosis of liver without ascites, unspecified hepatic cirrhosis type Expected: 01/15/2023, Expires: 01/15/2024 [facility] Comment on above: Expected: 01/15/2023, Expires: 4 Start: 01-15-2023 End: 01-15-2023 Patient encounter procedure 01/15/2023 Office Visit Gastroenterology Kelby Chance, TANK HOUSE OPERATOR-SURGICAL SALES REPRESENTATIVE [address] [place] [address] Gastroenterology and Hepatology [facility] Start: 10-24-2022 Pneumococcal vaccination [facility] Start: 08-26-2022 Thyroid stimulating hormone measurement [facility] Start: 08-19-2022 End: 07-14-2023 US Abdomen RUQ US ABDOMEN RUQ/LIVER/GB Imaging Routine Cirrhosis of liver without ascites, unspecified hepatic cirrhosis type Expected: 08/19/2022, Expires: 07/14/2023 [facility] Comment on above: Expected: 08/19/2022, Expires: 3 Start: 07-20-2022 Influenza vaccination INFLUENZA VACCINE (#1) [facility] Start: 07-18-2022 Patient discharge [facility] Work Phone: Start: 07-18-2022 [facility] Work Phone: Start: 07-17-2022 Referral to occupational therapist [facility] Work Phone: Start: 07-17-2022 Dialysis procedure [facility] Work Phone: Start: 07-17-2022 Prothrombin time [facility] Work Phone: Start: 07-17-2022 Administration of blood product [facility] Work Phone: Start: 07-17-2022 [facility] Work Phone: Start: 07-16-2022 Referral to water resource specialist [facility] Work Phone: Start: 07-16-2022 Prothrombin time [facility] Work Phone: Start: 07-15-2022 Following clinical pathway protocol [facility] Work Phone: Start: 07-15-2022 Assessment of risk of venous thromboembolism [facility] Work Phone: Start: 07-15-2022 Catheterization of vein [facility] Work Phone: Start: 07-15-2022 Incentive spirometry [facility] Work Phone: Start: 07-15-2022 Insertion of catheter into peripheral vein [facility] Work Phone: Start: 07-15-2022 Measuring intake and output [facility] Work Phone: Start: 07-15-2022 Providing care according to standard [facility] Work Phone: Start: 07-15-2022 Provision of activity privileges [facility] Work Phone: Start: 07-15-2022 Referral to gastroenterology service [facility] Work Phone: Start: 07-15-2022 Referral to service [facility] Work Phone: Start: 07-15-2022 [facility] Work Phone: Start: 07-15-2022 Admission procedure [facility] Work Phone: Start: 07-15-2022 Administration of blood product [facility] Work Phone: Start: 07-15-2022 End: 07-16-2022 [facility] Work Phone: Start: 05-20-2022 Hepatitis B surface antibody level LDL Cholesterol [facility] Start: 04-20-2022 End: 04-20-2022 Patient encounter procedure 04/20/2022 Office Visit Gastroenterology Vaishnavi Fry, DO [address] [place] [address] Gastroenterology and Hepatology [facility] Start: 04-08-2022 Control nasal hemorrhage anterior simple CONTROL OF NOSEBLEED [facility] Work Phone: Start: 04-06-2022 Patient discharge [facility] Work Phone: Start: 04-04-2022 Administration of blood product [facility] Work Phone: Start: 04-04-2022 Dialysis procedure [facility] Work Phone: Start: 04-04-2022 Following clinical pathway protocol [facility] Work Phone: Start: 04-04-2022 Referral to ear, nose and throat service [facility] Work Phone: Start: 04-04-2022 Referral to water resource specialist [facility] Work Phone: Start: 04-04-2022 Referral to gastroenterology service [facility] Work Phone: Start: 04-04-2022 Catheterization of vein [facility] Work Phone: Start: 04-04-2022 Incentive spirometry [facility] Work Phone: Start: 04-04-2022 Admission procedure [facility] Work Phone: Start: 04-04-2022 Assessment of risk of venous thromboembolism [facility] Work Phone: Start: 04-04-2022 Insertion of catheter into peripheral vein [facility] Work Phone: Start: 04-04-2022 Measuring intake and output [facility] Work Phone: Start: 05-17-2022 Providing care according to standard [facility] Work Phone: Start: 04-04-2022 End: 04-04-2022 [facility] Work Phone: Start: 04-04-2022 Ambulation without limitation [facility] Work Phone: Start: 04-04-2022 Transfusion of red blood cells [facility] Work Phone: Start: 12-23-2021 COVID-19 VACCINE (4 - Booster for Pfizer series) COVID-19 VACCINE (4 - Booster for Pfizer series) [facility] Start: 08-06-2021 Screening for malignant neoplasm of colon COLORECTAL CANCER SCREENING DISCUSSION [facility] Start: 09-12-2018 Administration of blood product [facility] Start: 09-12-2018 [facility] Start: 08-14-2018 Administration of blood product [facility] Start: 08-14-2018 [facility] Start: 07-17-2018 Administration of blood product [facility] Start: 07-17-2018 [facility] Start: 01-18-2018 End: 01-18-2018 Appointment Appointment [facility] Work Phone: Start: 12-04-2017 End: 12-04-2017 Appointment Appointment [facility] Work Phone: Start: 11-19-2017 Medicare Annual Wellness Visit Medicare Annual Wellness Visit [facility] Start: 10-08-2017 End: 10-08-2017 INR Coag RelTime (PPP) *PT/INR - Standing Order [facility] Work Phone: Start: 08-28-2017 End: 08-28-2017 Follow Up Appt 3 months Follow Up Appt 3 months [facility] Work Phone: Start: 08-28-2017 End: 08-28-2017 Pacer Clinic Pacer Clinic [facility] Work Phone: Start: 08-21-2017 End: 02-19-2017 *CBC w/Diff - oncology ONLY *CBC w/Diff - oncology ONLY [facility] Work Phone: Start: 08-21-2017 End: 02-19-2017 *CMP Complete Metabolic Panel *CMP Complete Metabolic Panel [facility] Work Phone: Start: 08-21-2017 End: 02-19-2017 Lactate dehydrogenase (LDH) *LDH -LDH (Lactate Dehydrogenase) [facility] Work Phone: Start: 07-16-2017 End: 07-16-2017 Follow Up Appt 6 months Follow Up Appt 6 months [facility] Work Phone: Start: 07-16-2017 End: 07-16-2017 MMM MMM [facility] Work Phone: Start: 05-04-2017 End: 06-26-2017 Follow Up Appt 3 months Follow Up Appt 3 months [facility] Work Phone: Start: 05-04-2017 End: 06-26-2017 Pacer Clinic Pacer Clinic [facility] Work Phone: Start: 05-02-2017 End: 05-02-2017 *BMP *BMP [facility] Work Phone: Start: 05-02-2017 End: 05-02-2017 *CBC with Differential *CBC with Differential [facility] Work Phone: Start: 05-02-2017 End: 05-02-2017 BNP *Brain Natriuretic Peptide BNP [facility] Work Phone: Start: 05-02-2017 End: 05-02-2017 Chest x-ray X-Ray, Chest, PA & Lateral [facility] Work Phone: Start: 05-02-2017 End: 06-26-2017 Follow Up Appt Other Follow Up Appt Other [facility] Work Phone: Start: 05-02-2017 End: 06-26-2017 PFM PFM [facility] Work Phone: Start: 05-02-2017 End: 05-02-2017 Thyroid stimulating hormone (TSH) *TSH [facility] Work Phone: Start: 05-02-2017 End: 05-02-2017 Thyroxine (T4) *T4 (Total) [facility] Work Phone: Start: 05-01-2017 Colonoscopy COLORECTAL CANCER SCREENING DISCUSSION [facility] Start: 05-01-2017 Screening for malignant neoplasm of colon COLORECTAL CANCER SCREENING DISCUSSION [facility] Start: 02-28-2017 End: 03-06-2017 INR Coag RelTime (PPP) *PT/INR - Standing Order [facility] Work Phone: Start: 02-19-2017 End: 02-22-2017 *CBC w/Diff - oncology ONLY *CBC w/Diff - oncology ONLY [facility] Work Phone: Start: 02-19-2017 End: 02-22-2017 *CMP Complete Metabolic Panel *CMP Complete Metabolic Panel [employer] Work Phone: Start: 02-19-2017 End: 02-22-2017 Carcinoembryonic antigen *CEA (Carcinoembryonic Ag) [facility] Work Phone: Start: 02-19-2017 End: 02-19-2017 Lactate dehydrogenase (LDH) *LDH -LDH (Lactate Dehydrogenase) [facility] Work Phone: Start: 02-19-2017 End: 02-19-2017 Magnesium *Magnesium [facility] Work Phone: Start: 02-19-2017 End: 02-22-2017 Office outpatient visit 15 minutes [id number] Ofc Vst, Est Level III [facility] Work Phone: Start: 02-19-2017 End: 02-19-2017 Urate *Uric Acid Blood [facility] Work Phone: Start: 01-23-2017 End: 04-17-2017 Follow Up Appt 3 months Follow Up Appt 3 months [facility] Work Phone: Start: 01-23-2017 End: 04-17-2017 Pacer Clinic Pacer Clinic [facility] Work Phone: Start: 12-18-2016 End: 12-18-2016 Follow Up Appt 6 months Follow Up Appt 6 months [facility] Work Phone: Start: 12-18-2016 End: 12-18-2016 PFM PFM [facility] Work Phone: Start: 11-29-2016 End: 09-07-2016 Echocardiography Echocardiogram (complete) [facility] Work Phone: Start: 10-17-2016 End: 04-10-2017 Follow Up Appt 3 months Follow Up Appt 3 months [facility] Work Phone: Start: 10-17-2016 End: 04-10-2017 Pacer Clinic Pacer Clinic [facility] Work Phone: Start: 09-06-2016 End: 09-11-2016 C reactive protein (hsCRP) *CRP - C-Reative Protein [facility] Work Phone: Start: 09-06-2016 End: 09-11-2016 Erythrocyte sedimentation rate *Sedimentation Rate (ESR) [facility] Work Phone: Start: 09-04-2016 End: 06-05-2016 *CBC with Differential *CBC with Differential [facility] Work Phone: Start: 09-04-2016 End: 06-05-2016 *CMP Complete Metabolic Panel *CMP Complete Metabolic Panel [facility] Work Phone: Start: 09-04-2016 End: 06-05-2016 Lactate dehydrogenase (LDH) *LDH -LDH (Lactate Dehydrogenase) [facility] Work Phone: Start: 09-04-2016 End: 06-05-2016 Urate *Uric Acid Blood [facility] Work Phone: Start: 08-28-2016 End: 08-28-2016 Follow Up Appt 3 months Follow Up Appt 3 months [facility] Work Phone: Start: 08-28-2016 End: 08-28-2016 Follow Up Appt Other Follow Up Appt Other [facility] Work Phone: Start: 08-28-2016 End: 08-28-2016 PFM PFM [facility] Work Phone: Start: 07-13-2016 End: 07-13-2016 *BMP *BMP [facility] Work Phone: Start: 07-13-2016 End: 07-13-2016 INR Coag RelTime (PPP) *PT/INR [facility] Work Phone: Start: 07-05-2016 End: 08-28-2016 Follow Up Appt 3 months Follow Up Appt 3 months [facility] Work Phone: Start: 07-05-2016 End: 08-28-2016 Pacer Clinic Pacer Clinic [facility] Work Phone: Start: 06-29-2016 End: 06-29-2016 Echocardiography Echocardiogram (complete) [facility] Work Phone: Start: 06-29-2016 End: 06-29-2016 Follow Up Appt 6 weeks Follow Up Appt 6 weeks [facility] Work Phone: Start: 06-29-2016 End: 06-29-2016 MMM MMM [facility] Work Phone: Start: 05-25-2016 End: 11-25-2015 *CBC with Differential *CBC with Differential [facility] Work Phone: Start: 05-25-2016 End: 11-25-2015 *CMP Complete Metabolic Panel *CMP Complete Metabolic Panel [facility] Work Phone: Start: 05-25-2016 End: 11-25-2015 Lactate dehydrogenase (LDH) *LDH -LDH (Lactate Dehydrogenase) [facility] Work Phone: Start: 05-25-2016 End: 11-25-2015 Urate *Uric Acid Blood [facility] Work Phone: Start: 04-10-2016 End: 10-16-2016 Follow Up Appt 2 weeks Follow Up Appt 2 weeks [facility] Work Phone: Start: 03-09-2016 End: 04-10-2017 *Hepatic Function Panel *Hepatic Function Panel [facility] Work Phone: Start: 03-09-2016 End: 04-10-2017 Lipid panel [AGGREGATE] *Lipid Profile CC PCP [facility] Work Phone: Start: 01-26-2016 End: 03-01-2016 Follow Up Appt Other Follow Up Appt Other [facility] Work Phone: Start: 01-04-2016 End: 01-05-2016 Surgery Referral Surgery Referral Kaylin Kyle MD, [facility], [address], [address], [place], [address] [facility] Work Phone: Start: 12-15-2015 End: 06-29-2016 Follow Up Appt 3 months Follow Up Appt 3 months [facility] Work Phone: Start: 12-15-2015 End: 06-29-2016 Pacer Clinic Pacer Clinic [facility] Work Phone: Start: 12-03-2015 End: 12-09-2015 *Hepatic Function Panel *Hepatic Function Panel [facility] Work Phone: Start: 12-03-2015 End: 12-09-2015 Lipid panel [AGGREGATE] *Lipid Profile CC PCP [facility] Work Phone: Start: 09-13-2015 End: 09-21-2015 *BMP *BMP [facility] Work Phone: Start: 09-13-2015 End: 09-21-2015 *CBC with Differential *CBC with Differential [facility] Work Phone: Start: 09-13-2015 End: 06-29-2016 Follow Up Appt 3 months Follow Up Appt 3 months [facility] Work Phone: Start: 09-13-2015 End: 06-29-2016 Follow Up Appt 6 months Follow Up Appt 6 months [facility] Work Phone: Start: 09-13-2015 End: 06-29-2016 Pacer Clinic Pacer Clinic [facility] Work Phone: Start: 09-13-2015 End: 06-29-2016 PFM PFM [facility] Work Phone: Start: 06-03-2015 End: 06-03-2015 *Hepatic Function Panel *Hepatic Function Panel [facility] Work Phone: Start: 06-03-2015 End: 06-03-2015 Lipid panel [AGGREGATE] *Lipid Profile CC PCP [facility] Work Phone: Start: 05-14-2015 End: 09-01-2015 Follow Up Appt 3 months Follow Up Appt 3 months [facility] Work Phone: Start: 05-14-2015 End: 09-01-2015 Pacer Clinic Pacer Clinic [facility] Work Phone: Start: 03-03-2015 End: 03-04-2015 *BMP *BMP [facility] Work Phone: Start: 02-26-2015 End: 03-01-2015 Follow Up Appt 6 months Follow Up Appt 6 months [facility] Work Phone: Start: 02-26-2015 End: 03-01-2015 MMM MMM [facility] Work Phone: Start: 02-17-2015 End: 02-16-2015 *Hepatic Function Panel *Hepatic Function Panel [facility] Work Phone: Start: 02-17-2015 End: 02-16-2015 Lipid panel [AGGREGATE] *Lipid Profile CC PCP [facility] Work Phone: Start: 02-08-2015 End: 03-01-2015 Follow Up Appt 3 months Follow Up Appt 3 months [facility] Work Phone: Start: 02-08-2015 End: 03-01-2015 Pacer Clinic Pacer Clinic [facility] Work Phone: Start: 12-17-2014 End: 03-01-2015 INR Coag RelTime (PPP) *PT/INR - Standing Order [facility] Work Phone: Start: 10-29-2014 End: 11-16-2014 Follow Up BP Check Follow Up BP Check [facility] Work Phone: Start: 10-27-2014 End: 03-01-2015 Follow Up Appt 3 months Follow Up Appt 3 months [facility] Work Phone: Start: 10-27-2014 End: 03-01-2015 Pacer Clinic Pacer Clinic [facility] Work Phone: Start: 07-28-2014 End: 07-28-2014 Follow Up Appt 6 months Follow Up Appt 6 months [facility] Work Phone: Start: 07-28-2014 End: 07-28-2014 PFM PFM [facility] Work Phone: Start: 07-23-2014 End: 07-28-2014 Follow Up Appt 3 months Follow Up Appt 3 months [facility] Work Phone: Start: 07-23-2014 End: 07-28-2014 Pacer Clinic Pacer Clinic [facility] Work Phone: Start: 05-19-2014 End: 06-09-2014 Lipid panel [AGGREGATE] *Lipid Profile CC PCP [facility] Work Phone: Start: 05-15-2014 End: 05-15-2014 *Hepatic Function Panel *Hepatic Function Panel [facility] Work Phone: Start: 04-29-2014 End: 04-24-2014 Echocardiography Echocardiogram (complete) [facility] Work Phone: Start: 04-23-2014 End: 07-06-2014 Device Interrogation Device Interrogation [facility] Work Phone: Start: 04-23-2014 End: 04-24-2014 Echocardiography Echocardiogram (complete) [facility] Work Phone: Start: 04-23-2014 End: 07-06-2014 Follow Up Appt 3 months Follow Up Appt 3 months [facility] Work Phone: Start: 04-23-2014 End: 07-06-2014 MMM MMM [facility] Work Phone: Start: 04-23-2014 End: 04-24-2014 Pacer Clinic Pacer Clinic [facility] Work Phone: Start: 03-30-2014 End: 03-24-2014 *Hepatic Function Panel *Hepatic Function Panel [facility] Work Phone: Start: 03-19-2014 End: 02-24-2014 Lipid panel [AGGREGATE] *Lipid Profile CC PCP [facility] Work Phone: Start: 12-08-2013 End: 12-09-2013 CBC W Auto Differential panel - Blood *CBC without Diff [facility] Work Phone: Start: 12-08-2013 End: 12-08-2013 Follow Up Appt 3 months Follow Up Appt 3 months [facility] Work Phone: Start: 12-08-2013 End: 12-08-2013 Follow Up Appt 4 months Follow Up Appt 4 months [facility] Work Phone: Start: 12-08-2013 End: 12-08-2013 Pacer Clinic Pacer Clinic [facility] Work Phone: Start: 12-08-2013 End: 12-08-2013 PFM PFM [facility] Work Phone: Start: 11-18-2013 End: 12-03-2013 *BMP *BMP [facility] Work Phone: Start: 09-15-2013 End: 11-10-2013 *Hepatic Function Panel *Hepatic Function Panel [facility] Work Phone: Start: 09-15-2013 End: 11-10-2013 Lipid panel [AGGREGATE] *Lipid Profile CC PCP [facility] Work Phone: Start: 09-11-2013 End: 09-24-2013 *BMP *BMP [facility] Work Phone: Start: 09-04-2013 End: 09-04-2013 Echocardiography Echocardiogram (limited) [facility] Work Phone: Start: 09-04-2013 End: 11-10-2013 Follow Up Appt 3 months Follow Up Appt 3 months [facility] Work Phone: Start: 09-04-2013 End: 09-04-2013 MMM MMM [facility] Work Phone: Start: 09-04-2013 End: 11-10-2013 Pacer Clinic Pacer Clinic [facility] Work Phone: Start: 08-15-2013 End: 11-10-2013 Follow Up Appt 1 month Follow Up Appt 1 month [facility] Work Phone: Start: 08-15-2013 End: 11-10-2013 Pacer Clinic Pacer Clinic [facility] Work Phone: Start: 07-23-2013 End: 06-09-2013 *Hepatic Function Panel *Hepatic Function Panel [facility] Work Phone: Start: 07-23-2013 End: 06-09-2013 Lipid panel [AGGREGATE] *Lipid Profile CC PCP [facility] Work Phone: Start: 06-03-2013 End: 06-09-2013 *Hepatic Function Panel *Hepatic Function Panel [facility] Work Phone: Start: 05-13-2013 End: 11-10-2013 *BMP *BMP [facility] Work Phone: Start: 05-12-2013 End: 05-13-2013 *BMP *BMP [facility] Work Phone: Start: 05-12-2013 End: 05-13-2013 *CBC with Differential *CBC with Differential [facility] Work Phone: Start: 05-12-2013 End: 05-13-2013 BNP *Brain Natriuretic Peptide BNP [facility] Work Phone: Start: 05-12-2013 End: 05-12-2013 Echocardiography Echocardiogram (complete) [facility] Work Phone: Start: 05-08-2013 End: 11-10-2013 Follow Up Appt 3 months Follow Up Appt 3 months [facility] Work Phone: Start: 05-08-2013 End: 05-08-2013 Follow Up Appt Other Follow Up Appt Other [facility] Work Phone: Start: 05-08-2013 End: 11-10-2013 Pacer Clinic Pacer Clinic [facility] Work Phone: Start: 04-24-2013 End: 05-06-2013 *BMP *BMP [facility] Work Phone: Start: 04-24-2013 End: 05-08-2013 *Hepatic Function Panel *Hepatic Function Panel [facility] Work Phone: Start: 04-24-2013 End: 05-08-2013 Follow Up Appt 3 months Follow Up Appt 3 months [facility] Work Phone: Start: 04-24-2013 End: 05-08-2013 Lipid panel [AGGREGATE] *Lipid Profile CC PCP [facility] Work Phone: Start: 04-24-2013 End: 05-08-2013 PFM PFM [facility] Work Phone: Start: 01-21-2013 End: 03-18-2013 *BMP *BMP [facility] Work Phone: Start: 01-21-2013 End: 03-18-2013 *CBC with Differential *CBC with Differential [facility] Work Phone: Start: 01-21-2013 End: 01-21-2013 Follow Up Appt 3 months Follow Up Appt 3 months [facility] Work Phone: Start: 01-21-2013 End: 03-18-2013 Magnesium *Magnesium [facility] Work Phone: Start: 01-21-2013 End: 03-18-2013 Thyroid stimulating hormone (TSH) *TSH [facility] Work Phone: Start: 01-21-2013 End: 03-18-2013 Thyroxine (T4) *T4 (Total) [facility] Work Phone: Start: 10-24-2012 End: 01-01-2013 *BMP *BMP [facility] Work Phone: Start: 10-24-2012 End: 10-24-2012 Echocardiography Echocardiogram (complete) [facility] Work Phone: Start: 10-24-2012 End: 10-24-2012 Follow Up Appt 3 months Follow Up Appt 3 months [facility] Work Phone: Start: 10-24-2012 End: 01-01-2013 Magnesium *Magnesium [facility] Work Phone: Start: 10-24-2012 End: 01-01-2013 Thyroid stimulating hormone (TSH) *TSH [facility] Work Phone: Start: 10-24-2012 End: 01-01-2013 Thyroxine (T4) *T4 (Total) [facility] Work Phone: Start: 09-25-2012 End: 10-07-2012 *Hepatic Function Panel *Hepatic Function Panel [facility] Work Phone: Start: 09-25-2012 End: 10-07-2012 Lipid panel [AGGREGATE] *Lipid Profile [facility] Work Phone: Start: 07-04-2012 End: 07-04-2012 Follow Up Appt 4 months Follow Up Appt 4 months [facility] Work Phone: Start: 06-26-2012 End: 06-17-2012 *BMP *BMP [facility] Work Phone: Start: 06-26-2012 End: 06-17-2012 *Hepatic Function Panel *Hepatic Function Panel [facility] Work Phone: Start: 06-26-2012 End: 06-17-2012 Lipid panel [AGGREGATE] *Lipid Profile [facility] Work Phone: Start: 06-26-2012 End: 06-17-2012 Magnesium *Magnesium [facility] Work Phone: Start: 05-22-2012 End: 12-12-2011 *Hepatic Function Panel *Hepatic Function Panel [facility] Work Phone: Start: 05-22-2012 End: 12-12-2011 Lipid panel [AGGREGATE] *Lipid Profile [facility] Work Phone: Start: 02-26-2012 End: 02-26-2012 Follow Up Appt 4 months Follow Up Appt 4 months [facility] Work Phone: Start: 12-11-2011 End: 12-12-2011 *BMP *BMP [facility] Work Phone: Start: 12-11-2011 End: 12-12-2011 INR Coag RelTime (PPP) *PT/INR [facility] Work Phone: Start: 11-23-2011 End: 11-23-2011 Follow Up Appt 3 months Follow Up Appt 3 months [facility] Work Phone: Start: 10-06-2011 End: 10-06-2011 Ecg routine ecg w/least 12 lds w/i&r EKG (In office) [facility] Work Phone: Start: 10-06-2011 End: 10-06-2011 Follow Up Appt Other Follow Up Appt Other [facility] Work Phone: Start: 1999 Prostate specific antigen measurement PROSTATE CANCER SCREENING DISCUSSION [facility] Start: 1999 Shingrix Vaccine (1 of 2) Shingrix Vaccine (1 of 2) [facility] Start: 1999 Zoster vaccine hzv live for subcutaneous use ZOSTER (SHINGLES) VACCINE (1 of 2) [facility] Start: 02-28-1968 Hepatitis A Vaccine (1 of 2 - Risk 2-dose series) Hepatitis A Vaccine (1 of 2 - Risk 2-dose series) [facility] Start: 02-28-1968 Third diphtheria, tetanus and acellular pertussis (DTaP) vaccination TDAP (ADULT) [facility] Start: 02-28-1968 Zoster vaccine hzv live for subcutaneous use ZOSTER (SHINGLES) VACCINE (1 of 2) [facility] Start: 1967 Annual PCP Team Chronic Disease Visit Annual PCP Team Chronic Disease Visit [facility] Start: 1967 Anxiety Screening Anxiety Screening [facility] Start: 1967 Depression Screening Depression Screening [facility] Start: [address] [facility] Start: 1954 COVID-19 VACCINE (#1) COVID-19 VACCINE (#1) [facility] Start: 1949 COVID-19 VACCINE (#1) COVID-19 VACCINE (#1) [facility] AFP TUMOR MARKER AFP TUMOR MARKE R Lab Routine Cirrhosis of liver without ascites, unspecified hepatic cirrhosis type Ordered: 07/14/2022 [facility] Comment on above: Ordered: 07/14/2022 AFP TUMOR MARKER AFP TUMOR MARKE R Lab Routine Other cirrhosis of liver Ordered: 04/16/2024 [facility] Comment on above: Ordered: 04/16/2024 Alanine aminotransfe rase [Enzymatic activity/volume] in Serum or Plasma [facility] Albumin [Mass/volume ] in Serum or Plasma [facility] Alkaline phosphatase [Enzymatic activity/volume] in Serum or Plasma [facility] Lngck-4-ssasxufubaz. tumo r marker [Units/volume] in Serum or Plasma [facility] Anion gap in Serum o r Plasma [facility] End: 02-28-2025 Bacteria identified in Blood by Culture [facility] End: 03-03-2025 Bacteria identified in Blood by Culture [facility] End: 03-04-2025 Bacteria identified in Blood by Culture [facility] Bilirubin, total measurement [facility] BUN/Creatinine ratio [facility] Calcium [Mass/volume ] in Serum or Plasma [facility] CALCULI, URINARY (KI DNEY STONE) CALCULI, URINARY (KIDNEY STONE) Fluids Routine Urinary frequency 03/28/2023 10:[address] [facility] Carbon dioxide, tota l [Moles/volume] in Central venous blood [facility] CBC,PLATELETS CBC,PLATELETS La b Routine Cirrhosis of liver without ascites, unspecified hepatic cirrhosis type Ordered: 07/14/2022 [facility] Comment on above: Ordered: 07/14/2022 CHEM 6 (LYTES, BUN CREA) CHEM 6 (LYTES, BUN CREA) Lab Routine Cirrhosis of liver without ascites, unspecified hepatic cirrhosis type Ordered: 07/14/2022 [facility] Comment on above: Ordered: 07/14/2022 Creatinine [Mass/vol ume] in Serum or Plasma [facility] CT Abdomen and Pelvi s WO contrast [facility] Work Phone: CT Abdomen and Pelvi s WO contrast [facility] CT Chest WO contrast [facility] Work Phone: CT Chest WO contrast [facility] CT Chest WO contrast [facility] CYTOLOGY, NON-TELEVISION NEWSCAST DIRECTOR CYTOLOGY, NON- TELEVISION NEWSCAST DIRECTOR Cytology Routine Urinary frequency 03/28/2023 10:[address] [facility] Echo transesophag r- t 2d w/prb img acquisj i&r ECHOCARDIOGRAM TRANSESOPHOGEAL, REAL TIME W/IMAGE DOCUMENT (2D) Endocarditis, unspecified chronicity, unspecified endocarditis type [facility] Electrophysiology study EP PROCE DURE - EPS/ABLATION/DEVICE Electrophysiology Routine SSS (sick sinus syndrome) 04/02/2024 11:[address] [facility] Work Phone: Ferritin [Mass/volum e] in Serum or Plasma [facility] Glucose [Mass/volume ] in Serum or Plasma [facility] Hemoglobin [Mass/vol ume] in Blood [facility] Work Phone: Hepatic function 200 0 panel - Serum or Plasma HEPATIC FUNCTION PANEL Lab Routine Cirrhosis of liver without ascites, unspecified hepatic cirrhosis type Ordered: 07/14/2022 [facility] Comment on above: Ordered: 07/14/2022 Hepatic function 200 0 panel - Serum or Plasma HEPATIC FUNCTION PANEL Lab Routine Other cirrhosis of liver Ordered: 04/16/2024 [facility] Comment on above: Ordered: 04/16/2024 INR in Blood by Coagulation assay [facility] Work Phone: Iron [Mass/mass] in Unspecified specimen [facility] Iron saturation [Mas s Fraction] in Serum or Plasma [facility] Lactate dehydrogenas e measurement [facility] Measurement of renal function [facility] Patient Education [facility] [employer] Work Phone: Patient referral [facility] Work Phone: Potassium measurement [facility] Prothrombin time [facility] Work Phone: PT,INR,PTT PT,INR,PTT Lab R outine Cirrhosis of liver without ascites, unspecified hepatic cirrhosis type Ordered: 07/14/2022 [facility] Comment on above: Ordered: 07/14/2022 Radionuclide gastric emptying study [facility] Serum chloride measurement [facility] Sodium measurement [facility] Total iron binding capacity measurement [facility] Total protein measurement [facility] Urea nitrogen [Mass/volume] in Serum or Plasma [facility] Urine immunofixation [facility] End: 03-17-[address] [facility] Comment on above: 1 Occurrences starting 03/17/2022 until 03/17/2022 Walking distance 6 minutes [facility] Immunizations Immunization Date Immunization Notes Care Provider Frantz patel 08-26-2024 influenza virus vaccine, unspecified formulation Kirsten Angeles PA-C Work Phone: [facility] 10-09-2023 zoster vaccine, unspecified formulation Kelby Chance TANK HOUSE OPERATOR-SURGICAL SALES REPRESENTATIVE Work Phone: [facility] 08-22-2022 influenza virus vaccine, unspecified formulation Vaishnavi Sobotka DO Work Phone: [facility] 10-25-2021 influenza virus vaccine, unspecified formulation Vaishnavi Sobotka DO Work Phone: [facility] 10-24-2021 pneumococcal conjuga te vaccine, 13 valent Kelby Chance TANK HOUSE OPERATOR-SURGICAL SALES REPRESENTATIVE Work Phone: [facility] 09-19-[address] Vinny Atkinson Work Phone: [facility] 01-21-2021 Covid (Pfizer) Dr. Vinny guido Work Phone: [facility] 12-24-2020 Covid (Pfizer) Dr. Vinny guido Work Phone: [facility] 08-25-[address] Vinny Atkinson Work Phone: [facility] 07-20-2012 influenza virus vaccine, unspecified formulation Kelby Chance TANK HOUSE OPERATOR-SURGICAL SALES REPRESENTATIVE Work Phone: [facility] 08-16-2011 influenza virus vaccine, whole virus Kelby Chance TANK HOUSE OPERATOR-SURGICAL SALES REPRESENTATIVE Work Phone: [facility] Work Phone: Payers Date Payer Category Payer Private Health Insurance [id number] Member Subscriber Plan / Payer (Effective 2017-Present) Name: Christian Amador Relation to Subscriber: Self Name: Christian Amador Payer ID: [id number] (NAIC) Group ID: Not on file Type: [employer] Address: [place] [id number] 2017 Self-pay [id number] 2015 Medicare [id number] 1.13.172.2 .[id number] 2013 Medicare [id number] 2013 Medicare [id number] 2011 Managed Care (unspecified) 1.2.840.798678.1.13.172.2 .7.9.994337.47429.315 2011 Unknown AARP AARP [id number] [id number]-Present [address] [place] [address] 1.2.840.691469.1.13.172.2 .7.3.541008.315 2011 Unknown [id number] 1950 Unknown [id number] 2.16.840.1.263695.3.579.2 .732 1950 Unknown [id number] 2.16.840.1.542957.3.579.2 .594 1950 Unknown [id number] 2..840.1.840305.3.579.2 .594 1950 Unknown [id number] 2..840.1.480972.3.579.2 .594 1950 Unknown [id number] 2..840.1.885938.3.579.2 .594 1950 Unknown [id number] 2..840.1.535293.3.579.2 .594 Unknown [id number] 2.840.1.419688.3.579.2 .462 Unknown [id number] 2.840.1.281623.3.579.2 .462 Unknown [id number] 2.840.1.074551.3.579.2 .462 Unknown [id number] 2.16.840.1.767342.3.579.2 .462 Unknown [id number] 2.16840.1.794056.3.579.2 .462 Unknown [id number] 2.840.1.189290.3.579.2 .462 Unknown [id number] 2.16840.1.527800.3.579.2 .462 Unknown [id number] 2.16.840.1.665932.3.579.2 .462 Unknown [id number] 2.16.840.1.848369.3.579.2 .462 Unknown [id number] 2.16.840.1.693610.3.579.2 .462 Unknown [id number] 2.16.840.1.801786.3.579.2 .462 Unknown [id number] 2.16.840.1.093654.3.579.2 .462 Unknown [id number] 2.16840.1.350832.3.579.2 .462 Unknown [id number] 2.16.840.1.232604.3.579.2 .462 Unknown [id number] 2.840.1.294140.3.579.2 .462 Unknown [id number] 2.840.1.800497.3.579.2 .462 Unknown [id number] 2.840.1.268540.3.579.2 .462 Unknown [id number] 2.840.1.992562.3.579.2 .462 Unknown [id number] 2.840.1.667552.3.579.2 .462 Unknown [id number] 2.840.1.054518.3.579.2 .462 Unknown [id number] 2.840.1.544270.3.579.2 .462 Unknown [id number] 2.840.1.947617.3.579.2 .462 Unknown [id number] 2.840.1.210301.3.579.2 .462 Unknown [id number] 2.840.1.534168.3.579.2 .462 Unknown [id number] .840.1.268819.3.579.2 .462 Unknown [id number] .840.1.487361.3.579.2 .462 Unknown [id number] 2.840.1.893328.3.579.2 .462 Unknown [id number] 2.840.1.451410.3.579.2 .462 Unknown [id number] 2.840.1.897681.3.579.2 .462 Unknown [id number] 2.16.840.1.530203.3.579.2 .462 Unknown [id number] 2.16.840.1.467972.3.579.2 .462 Unknown [id number] 2.16.840.1.177086.3.579.2 .462 Unknown [id number] 2.16.840.1.046730.3.579.2 .462 Unknown [id number] 2.16.840.1.271628.3.579.2 .462 Unknown [id number] 2.16.840.1.148313.3.579.2 .462 Unknown [id number] 2.16.840.1.518547.3.579.2 .462 Unknown [id number] 2.16840.1.888338.3.579.2 .462 Unknown [id number] 2.16840.1.894671.3.579.2 .462 Unknown [id number] 2.16840.1.390591.3.579.2 .462 Unknown [id number] 2.16.840.1.676107.3.579.2 .462 Unknown [id number] 2..840.1.326301.3.579.2 .462 Unknown [id number] 2.16.840.1.462461.3.579.2 .462 Unknown [id number] 2.840.1.866387.3.579.2 .462 Unknown [id number] 2.16.840.1.549925.3.579.2 .462 Unknown [id number] 2.16.840.1.512458.3.579.2 .462 Unknown [id number] 2.16.840.1.209462.3.579.2 .462 Unknown [id number] 2.16.840.1.674954.3.579.2 .462 Unknown [id number] 2.16.840.1.964001.3.579.2 .462 Unknown [id number] 2.16.840.1.184042.3.579.2 .462 Unknown [id number] 2.16.840.1.641119.3.579.2 .462 Unknown [id number] 2.16.840.1.008558.3.579.2 .462 Unknown [id number] 2.16.840.1.608916.3.579.2 .462 Unknown [id number] 2.16.840.1.980821.3.579.2 .462 Unknown [id number] 2.16.840.1.969619.3.579.2 .462 Unknown [id number] 2.16.840.1.336248.3.579.2 .462 Unknown [id number] 2.16.840.1.323179.3.579.2 .462 Unknown [id number] 2.16.840.1.756749.3.579.2 .462 Unknown [id number] 2.16.840.1.226665.3.579.2 .462 Unknown [id number] 2.16.840.1.012598.3.579.2 .462 Unknown [id number] 2.16.840.1.588357.3.579.2 .462 Unknown [id number] 2.16.840.1.261005.3.579.2 .462 Unknown [id number] 2.16.840.1.378729.3.579.2 .462 Unknown [id number] 2.16.840.1.452717.3.579.2 .462 Unknown [id number] 2.16.840.1.756257.3.579.2 .462 Unknown [id number] 2.16.840.1.083176.3.579.2 .462 Unknown [id number] 2.16.840.1.341046.3.579.2 .462 Unknown [id number] 2.16.840.1.210629.3.579.2 .462 Unknown [id number] 2.16.840.1.955569.3.579.2 .462 Unknown [id number] 2.16.840.1.025049.3.579.2 .462 Unknown [id number] 2.16.840.1.806757.3.579.2 .462 Unknown [id number] 2.16.840.1.411220.3.579.2 .462 Unknown [id number] 2.16.840.1.303511.3.579.2 .462 Unknown [id number] 2.16.840.1.276018.3.579.2 .462 Unknown [id number] 2.16.840.1.937944.3.579.2 .462 Unknown [id number] 2.16.840.1.403433.3.579.2 .462 Unknown [id number] 2.16840.1.107845.3.579.2 .462 Unknown [id number] 2.16.840.1.880977.3.579.2 .462 Unknown [id number] 2.16.840.1.267782.3.579.2 .462 Unknown [id number] 2.16.840.1.465829.3.579.2 .462 Unknown [id number] 2.16.840.1.435557.3.579.2 .462 Unknown [id number] 2.16.840.1.335801.3.579.2 .462 Unknown [id number] 2.16.840.1.952059.3.579.2 .462 Unknown [id number] 2.16.840.1.448155.3.579.2 .462 Unknown [id number] 2.16.840.1.787485.3.579.2 .462 Unknown [id number] 2.16.840.1.125769.3.579.2 .462 Unknown [id number] 2.16840.1.220894.3.579.2 .462 Unknown [id number] 2.16.840.1.279780.3.579.2 .462 Unknown [id number] 2.16.840.1.075993.3.579.2 .462 Unknown [id number] 2.840.1.597688.3.579.2 .462 Unknown [id number] 2.840.1.528860.3.579.2 .462 Social History Date Type Detail Facility Start: 02-01-2022 End: 12-12-2023 Tobacco smoking status NHIS Unknown if ever smoked [facility] Start: 03-15-2021 None [facility] Start: 03-15-2021 Non-smoker [facility] Start: 1950 Sex Assigned At Male [facility] Start: 08-07-2013 End: 07-19-2020 Tobacco smoking status NHIS Never smoked tobacco [facility] Start: 08-07-2013 End: 07-19-2020 Tobacco use and exposure Smokeless tobacco non-user [facility] Start: 11-01-2020 End: 12-19-2021 Alcohol intake Current non-drinker of alcohol (finding) [facility] Start: 1950 Sex Assigned At Not on file [facility] Start: 01-05-2023 End: 01-15-2023 Exposure to SARS-CoV-2 (event) Not sure [facility] Start: 06-21-2018 Spouse/ Significant Other [facility] Start: 10-24-2020 End: 07-13-2023 History of Social function [facility] Start: 10-24-2020 End: 07-13-[address] [facility] Start: 04-16-2024 End: 04-15-2025 Alcoholic beverage intake Lifetime non-drinker (finding) [facility] Start: 08-12-2020 Gender identity Identifies as male gender (finding) [facility] Start: 08-12-2020 Sexual orientation Heterosexual (finding) [facility] Has the electric, ga s, oil, or water company threatened to shut off services in your home in past 12Mo No [facility] How hard is it for y ou to pay for the very basics like food, housing, medical care, and heating Not very hard [facility] (I/We) worried wheth er (my/our) food would run out before (I/we) got money to buy more. Never true [facility] Start: 10-20-2012 In the past 12 months, has lack of transportation kept you from medical appointments or from getting medications? No [facility] Start: 12-22-2012 End: 02-13-2025 Sex Male (finding) [facility] Medical Equipment Procedure Code Equipment Code Equipment Original Text Equipment Identifier Dates [employer] DIALYSIS TECH-P [id number] FDA Start: 05-26-2016 [employer] DIALYSIS TECH-P [id number] FDA Start: 05-26-2016 [employer]a DIALYSIS TECH-P [id number] FDA Start: 05-26-2016 [employer] DIALYSIS TECH-P [id number] FDA Start: 05-26-2016 [employer] DIALYSIS TECH-P [id number] FDA Start: 05-26-2016 [id number] Start: 08-07-2013 Lead Pace Lv [id number]/75 - [id number]_[facility] Start: 05-26-2016 Cardiac pacemaker, device (physical object) ([id number]) Pacer Brim Presser [employer] - [id number]_[facility] Start: 05-26-2016 Comment on above: Description: Pin plu g in Atrial port. ([id number], [id number]_[facility] FDA Start: 10-10-2021 Comment on above: Description: Implant time-out completed by intra-procedural staff including this RN, science technicians, and performing physician. The following was completed. RN reads out loud implant type/size/ expiration date, and verbalizes location. Holds package up to tech to visually verify implant details. Tech reads back package details MD verifies verbally correct implant Time-out was completed for each coil during embolization, if applicable. [employer] DIALYSIS TECH-P [id number] FDA Start: 05-26-2016 [employer] DIALYSIS TECH-P [id number] FDA Start: 05-26-2016 [employer]a DIALYSIS TECH-P [id number] FDA Start: 05-26-2016 [employer]onic Consulta DIALYSIS TECH-P [id number] FDA Start: 05-26-2016 Med[employer]onic Consulta DIALYSIS TECH-P [id number] FDA Start: 05-26-2016 Med[employer]onic Consulta DIALYSIS TECH-P [id number] FDA Start: 05-26-2016 Med[employer]onic Consulta DIALYSIS TECH-P [id number] FDA Start: 05-26-2016 Med[employer]onic Consulta DIALYSIS TECH-P [id number] FDA Start: 05-26-2016 Med[employer]onic Consulta DIALYSIS TECH-P [id number] FDA Start: 05-26-2016 [employer] Consulta DIALYSIS TECH-P [id number] FDA Start: 05-26-2016 [employer]onic Consulta DIALYSIS TECH-P [id number] FDA Start: 05-26-2016 [employer] Consulta DIALYSIS TECH-P [id number] FDA Start: 05-26-2016 Med[employer]onic Consulta DIALYSIS TECH-P [id number] FDA Start: 05-26-2016 Med[employer]onic Consulta DIALYSIS TECH-P [id number] FDA Start: 05-26-2016 Med[employer] Consulta DIALYSIS TECH-P [id number] FDA Start: 05-26-2016 Med[employer]onic Consulta DIALYSIS TECH-P [id number] FDA Start: 05-26-2016 Med[employer]onic Consulta DIALYSIS TECH-P [id number] FDA Start: 05-26-2016 Med[employer]onic Consulta DIALYSIS TECH-P [id number] FDA Start: 05-26-2016 [employer] Consulta DIALYSIS TECH-P [id number] FDA Start: 05-26-2016 Med[employer] Consulta DIALYSIS TECH-P [id number] FDA Start: 05-26-2016 [employer] Consulta DIALYSIS TECH-P [id number] FDA Start: 05-26-2016 [employer] Consulta DIALYSIS TECH-P [id number] FDA Start: 05-26-2016 FDA Start: 05-26-2016 [id number] FDA Start: 03-29-2023 [employer]onic Consulta DIALYSIS TECH-P [id number] FDA Start: 05-26-2016 [employer] Consulta DIALYSIS TECH-P [id number] FDA Start: 05-26-2016 Med[employer]onic Consulta DIALYSIS TECH-P [id number] FDA Start: 05-26-2016 [employer]onic Consulta DIALYSIS TECH-P [id number] FDA Start: 05-26-2016 [employer] DIALYSIS TECH-P [id number] FDA Start: 05-26-2016 Lead Pace Standard Mdt 52cm - [id number] Start: 05-26-2016 Cardiac pacemaker, device (physical object) ([id number]) [id number] Start: 04-02-2024 Cardiac pacemaker, device (physical object) ([id number]) 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 FDA Start: 05-26-2016 FDA Start: 05-26-2016 FDA Start: 05-26-2016 FDA Start: 05-26-2016 FDA Start: 05-26-2016 FDA Start: 05-26-2016 FDA Start: 05-26-2016 FDA Start: 05-26-2016 FDA Start: 05-26-2016 Pacemaker-06/25/20 1 6 [id number] Start: 06-25-2016 Comment on above: Description: Medtron ic pacemaker Goals Date Patient Goal Desired Activity /State Personal health goal Personal health goal Functional Status Date Assessment Result Facility 02-15-2025 Within the last year , have you been humiliated or emotionally abused in other ways by your partner or ex-partner? No [facility] 02-15-2025 Within the last year , have you been afraid of your partner or ex-partner? No [facility] 02-15-2025 Within the last year , have you been kicked, hit, slapped, or otherwise physically hurt by your partner or ex-partner? No [facility] 02-13-2025 Are you deaf, or do you have serious difficulty hearing Yes [facility] 02-13-2025 Are you blind, or do you have serious difficulty seeing, even when wearing glasses No [facility] 02-13-2025 Do you have serious difficulty walking or climbing stairs No [facility] 02-13-2025 Do you have difficul ty dressing or bathing Yes [facility] 02-13-2025 Because of a physica l, mental, or emotional condition, do you have difficulty doing errands alone such as visiting a physician's office or shopping No [facility] 01-19-2023 Functional status Ambulates;Bill r;Bathroom Privilege [facility] Work Phone: 07-18-2022 Functional status Patient Activity Chair [facility] Work Phone: 07-18-2022 Functional status Activity Abili ty With Assist of 1 [facility] Work Phone: 07-17-2022 Functional status None [facility] Work Phone: 04-06-2022 Functional status Chair [facility] Work Phone: 01-12-2022 Functional status Patient Activi ty Ambulates [facility] Work Phone: 01-12-2022 Functional status Activity Abili ty With Assist of 1 [facility] Work Phone: 01-12-2022 Functional status None [facility] Work Phone: Mental Status Date Assessment Result Facility 02-13-2025 Because of a physica l, mental, or emotional condition, do you have serious difficulty concentrating, remembering, or making decisions [facility] 12-16-2024 Cognitive function Awake;Alert;Appropriat e [facility] Work Phone: 01-19-2023 Cognitive function Voice/Name [facility] Work Phone: 01-17-2023 Cognitive function Level Of Cons ciousness Awake;Alert;Appropriate;Fol lows Commands [facility] Work Phone: 07-18-2022 Cognitive function Voice/Name [facility] Work Phone: 07-15-2022 Cognitive function Level Of Cons ciousness Drowsy [facility] Work Phone: 04-06-2022 Cognitive function Voice/Name [facility] Work Phone: 01-12-2022 Cognitive function Voice/Name [facility] Work Phone: 09-27-2020 Cognitive function Awake;Alert;A ppropriate;Fol lows Commands [facility] Work Phone: 09-24-2020 Cognitive function Voice/Name [facility] Work Phone: 09-12-2018 Cognitive function Appropriate;C ashlee;Relaxed;Ch eerful [facility] Work Phone: Clinical Notes 08-19-2003 to 07-15-2025 Kirsten Angeles PA-C - 07/01/2025 10:52 AM EDT Note Date & Type Note Facility 07-15-2025 Note HNO ID: [id number] Author: KAYLIN SHARP, RN Service: Dialysis Author Type: Registered Nurse Type: Nursing Progress Note Filed: 07/15/2025 10:45 Note Text: 3 hour hemo treatment complete,tolerated well, fluid removed 1 liter. See scanned flow sheet. [facility] 07-14-2025 Note [facility] 07-14-2025 Note [facility] 07-13-2025 Note HNO ID: [id number] Author: SHARDA JAVIER RN Service: ? Author Type: Registered Nurse Type: Progress Notes Filed: 07/13/2025 12:00 Note Text: Hemodialysis completed, pt tolerated well. See flow sheet. Fluid balance -500 ml [facility] 07-13-2025 Note [facility] 07-13-2025 Note [facility] 07-12-2025 Note [facility] 07-12-2025 Note [facility] 07-11-2025 Note [facility] 07-10-2025 Note HNO ID: [id number] Author: KAYLIN SHARP, GIO Service: Dialysis Author Type: Registered Nurse Type: Nursing Progress Note Filed: 07/10/2025 10:58 Note Text: 3 hour hemo treatment complete,tolerated well,fluid removed 1 liter. See scanned flow sheet. [facility] 07-10-2025 Note [facility] 07-10-2025 Note [facility] 07-09-2025 Note [facility] 07-08-2025 Note HNO ID: [id number] Author: SHARDA JAVIER, GIO Service: ? Author Type: Registered Nurse Type: Progress Notes Filed: 07/08/2025 10:57 Note Text: Hemodialysis completed, pt tolerated well. See flow sheet. Fluid balance -1000 ml [facility] 07-08-2025 Note [facility] 07-08-2025 Note [facility] 07-07-2025 Note [facility] 07-06-2025 Note [facility] 07-06-2025 Note [facility] 07-05-2025 Note [facility] 07-04-2025 Note [facility] 07-03-2025 Note [facility] 07-03-2025 Note [facility] 07-03-2025 Note HNO ID: [id number] Author: SHARDA JAVIER, GIO Service: ? Author Type: Registered Nurse Type: Progress Notes Filed: 07/03/2025 11:40 Note Text: Hemodialysis completed, pt tolerated well. See flow sheet. Fluid balance -1000 ml [facility] 07-03-2025 Note [facility] 07-02-2025 Note [facility] 07-02-2025 Note [facility] 07-02-2025 Note [facility] 07-02-2025 Note [facility] 07-01-2025 Note HNO ID: [id number] Author: PAKO FITCH, GIO Service: Nursing Author Type: Registered Nurse Type: Progress Notes Filed: 07/01/2025 23:34 Note Text: Patient given suppository. Tolerated well. 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 Flush IV line with 10-20 mL of normal saline (0.9%) after lab draw. Labs may be drawn on Sunday if Sunday is a holiday. Follow up Provider Follow up date/time Appointment type Ligia Fuentes MD In-person Provider Monitoring Treatment Course Ligia Fuentes MD Address [address] [place] [address] documented in this encounter [facility] 07-01-2025 Note [facility] 07-01-2025 Note [facility] 06-30-2025 Note [facility] 06-30-2025 Note [facility] 06-30-2025 Note [facility] 06-30-2025 Note [facility] 06-30-2025 Note [facility] 06-29-2025 Note [facility] 06-29-2025 Note [facility] 06-29-2025 Note [facility] 06-28-2025 Note [facility] 06-27-2025 Note [facility] 06-27-2025 Note [facility] 06-27-2025 Note [facility] 06-27-2025 Note HNO ID: [id number] Author: SANCHEZ RASCON, RN Service: Nursing Author Type: Registered Nurse Type: Progress Notes Filed: 06/27/2025 06:20 Note Text: Patient removed IV. No scheduled IV medications; Per SOUND ok to leave out at this time. [facility] 06-27-2025 Note HNO ID: [id number] Author: NOTE, INTERFACE, ? Service: ? Author Type: ? Type: Progress Notes Filed: 06/27/2025 15:51 Note Text: Epic Scheduled Downtime: 06/27/2025 1:00:00 AM to 06/27/2025 2:17:00 AM [facility] 06-26-2025 Note HNO ID: [id number] Author: SHARDA JAVIER, GIO Service: ? Author Type: Registered Nurse Type: Progress Notes Filed: 06/26/2025 17:13 Note Text: Hemodialysis completed, pt tolerated well. See flow sheet. Fluid balance -500 ml [facility] 06-26-2025 Note [facility] 06-26-2025 Note [facility] 06-26-2025 Note [facility] 06-25-2025 Note [facility] 06-25-2025 Note [facility] 06-24-2025 Note [facility] 06-23-2025 Discharge summary Note Date/Time June 23, 2025 3:16pm [facility] Medical Records Department [address] [place] [id number] Emergency Department Summary 06/23/25 MR#: [id number] Acct: [id number] Name: CHRISTIAN AMADOR Rep #:[id number] : 1950 75 From: Amy Viramontes DO PCP: Dr. Castro Ferrara, DO Status:REG ER Location: ED HPI History of Present Illness Chief Complaint: Back Detail of Chief Complaint: Back pain Informant: patient Narrative Narrative: Patient presents to the emergency department complaint of back pain that was severe last night. Had remote history of a fall in April 16 where he had a pelvicfracture. Was brought into the emergency department for back pain June [address] scan that showed an L3 compression fracture. Last night he had a hard time sleeping because of back pain and finally gave the Percocet this morning. EMS was called to bring him in because he was having a hard time walking even with his rollator. Patient gets home hemodialysis which needs to be done today. Patient also on Coumadin for history of mechanical aortic valve and history of A-fib. He has not had any recent falls or injuries to his back. [facility] Medical History Pleural effusion associated with hepatic disorder ABLA (acute blood loss anemia) Anemia requiring transfusions Atherosclerotic heart disease of [place] coronary artery without angina pectoris Cirrhosis HLD (hyperlipidemia) Other specified cardiac dysrhythmias ESRD (end stage renal disease) on dialysis CKD stage G5/A1, GFR <15 and albumin creatinine ratio <30 mg/g Sepsis Vitamin D insufficiency Polyneuropathy Mild cognitive impairment Epilepsy nursing home (current) use of 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 History of rheumatic [...] tablet 200 mg PO DAILY 06/11/23 History albuterol sulfate 90 mcg/actuation 2 puff inhalation Q 4-6H PRN 03/19/24 Unknown History aerosol inhaler shortness of breath or wheez ing cyclobenzaprine 10 mg tablet 10 mg PO BID 05/28/24 History pantoprazole 40 mg tablet,delayed 40 mg PO QAM #90 tab s 12/01/24 12/16/24 Rx release warfarin 1 mg tablet (Jantoven) 2 mg PO .satsun 12/16/24 History warfarin 2 mg tablet 1 mg PO .-sun12/16/2411/20 History amoxicillin 500 mg capsule 2,000 mg PO DAILY PRN DENTA L 12/17/24 Unknown History TREATMENT triamcinolone acetonide 0.1 % 1 applic topical BID PRN SKIN 12/17/24 Unknown History 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 lactulose 10 gram/15 mL oral 20 ml PO QDAY 01/28/25 Un known History solution (Constulose) metoclopramide HCl 5 mg tablet 2.5 mg (1/2 x 5 mg) PO QAC #50 tabs 03/17/25 Unknown Rx midodrine 10 mg tablet See Rx Instructions PO .COMP STU To 03/25/25 Unknown History keep BP up during dialysis alprazolam 1 mg tablet (Xanax) 1 mg PO QHS Sleep 05/27 Unknown History sucroferric oxyhydroxide 500 mg 500 mg PO TID To reduc e phosphorus 05/27/25 Unknown History chewable tablet (Velphoro) in blood amino acids-protein hydrolysate 16 30 ml PO DAILY 04/12 Unknown History gram-100 kcal/30 mL oral liquid (Liquacel) docusate sodium 100 mg capsule 100 mg PO DAILY 5 Unknown History (Colace) docusate sodium 100 mg capsule 200 mg PO QHS 06/23/25 Unknown History (Colace) Allergy/AdvReac Type Severity Reaction Status Date / Time No Known Allergies Allergy Verified 06/23/25 10:22 Family History Father CAD (coronary artery disease) CABG Brother CAD (coronary artery disease) CABG Mother Diabetes Sister Breast cancer Diabetes Sister Cancer breast Diabetes Surgical History History of esophagogastroduodenoscopy (EGD) History of colonoscopy S/P arteriovenous (AV) fistula repair History of mechanical aortic valve replacement (~08/24/03) History of heart valve replacement with mechanical valve History of atrioventricular hciquita ablation History of heart valve replacement with [...] safe at home: Yes ROS ROS ED Review of Systems ROS Unobtainable: other Constitutional Constitutional ED: Reports lethargy; Denies chills, fever(s), sweats or weight loss Eyes Eyes: Denies blurry vision, change in vision or diplopia ENT ENT ED: Denies rhinorrhea or sore throat Cardiovascular Cardiovascular: Denies chest pain, orthopnea or racing heartbeat Respiratory/Chest Respiratory/Chest: Reports dyspnea and dyspnea on exertion; Denies cough, orthopnea or sputum Gastrointestinal Gastrointestinal: Denies abdominal pain, diarrhea, nausea or vomiting Genitourinary Genitourinary ED: Denies dysuria, hematuria or urinary frequency Musculoskeletal Musculoskeletal: Reports back pain; Denies arthralgias, myalgias or neck pain Integumentary Denies abscess, Abrasions or rash Neurologic Neurologic: Denies headache(s) or weakness Psychiatric Psychiatric: Denies anxiety, depression or suicidal thoughts Endocrine Endocrinology: Denies polydipsia, polyphagia or polyuria Hematologic/Lymphatic Hematologic/Lymphatic: Denies easy bleeding, easy bruising or lymphadenopathy Allergic/Immunologic Allergic/Immunologic ED: Denies mouth swelling, tongue swelling or urticaria EXAM Physical Exam Const Vital Signs: 06/23/25 10:17 06/23/25 12:16 Temperature 97.5 F L Temperature Source Oral Pulse Rate 85 68 Respiratory Rate 18 18 Blood Pressure 134/54 H 128/49 H Blood Pressure Mean 80 75 Pulse Ox 95 93 Oxygen Delivery Method Room Air Room Air Positive well nourished and well developed General Appearance ED: well developed and NAD HEENT Reports TM's clear and moist mucous membranes normocephalic and atraumatic; Negative for trauma or tenderness Tympanic Membrane ED: Yes TM's clear Eyes PERRL and EOMs intact bilaterally General Eye ED: Negative for pale conjunctiva or scleral icterus Neck no lymphadenopathy, supple and no JVD General: Negative for tenderness Chest Wall inspection of chest normal and palpation of chest normal Chest: Negative for tenderness Resp normal respiratory effort and clear to auscultation bilaterally Effort and Inspection: Negative for respiratory distress or pain with movement Auscultation: Negative for rhonchi, wheezes or diminished lung sounds Cardio regular rate, regular rhythm, S1 normal heart sound, S2 normal heart sound and no murmurs Peripheral Pulses: pulses 2+ throughout GI normal to inspection, nondistended, normoactive bowel sounds, soft to palpation,non-tender, non-distended and no masses Back/Spine no CVA tenderness and no thoracic nor lumbar tenderness Back/Spine Narrative: Tenderness palpation diffusely over lumbar spine. There is no ecchymosis or bruising. No erythema or warmth. Negative straight leg raises. Deep tendon reflexes plus 2 out of 4 bilaterally at the patella and Achilles. Normal L5 extension bilaterally. Normal sensation to light touch. Extremity normal to inspection General Extremety ED: Negative for edema General Extremity: Negative for edema Neuro oriented x3, CN's II-XII intact bilaterally, no sensory deficits noted and gait normal Sensorium / Orientation: awake, alert, oriented to person, oriented to place andoriented to time Motor Exam: strength 5/5 throughout and strength abnormal Psych mental status grossly normal Skin no rashes or lesions noted and no wounds MDM MDM MDM Narrative Medical decision making narrative: Patient presents with complicated medical history and ongoing back pain. Seen in the emergency department about a week ago and had a CT scan that showed an R2sichfscllhy fracture. Severe pain last night. No fever. Patient does home dialysis. He has a artificial aortic valve and is on chronic Coumadin therapy. IV line established. CBC with differential, 12.0 with hemoglobin 10.7 and platelet count of 146. Chemistries unremarkable. BUN was 43 and creatinine 5.88. AST was 41 with an ALT of 17 and alk phos of 515. Patient had a CT scan of the abdomen pelvis read by radiology as evidence of irregularity of the inferior endplate of L2 vertebrae and superior endplate of L3 vertebrae and infectious process should be ruled out. Case was discussed with hospitalist whorecommended transfer to a tertiary care center as we do not have ability to perform biopsy of the area and patient will likely require back specialist whichis not available here at this time. Dr. Jansen also spoke with Dr. March who did not recommend using antibiotics until biopsy results were obtained. Patient already currently on chronic doxycycline and Diflucan. Discussed this with patient's who is medical decision maker for him. I discussed case with [facility] physician who accepted transfer to their facility. We will be awaiting a bed for transfer. Lab Data Attestation: I reviewed the patient's lab results. Labs: Laboratory Results - last 24 hr 06/23/25 06/23/25 10:35 12:30 WBC 12.0 H RBC 3.41 L Hgb 10.7 L Hct 33.6 L MCV 98.5 H MCH 31.4 MCHC 31.8 L RDW Std Deviation 68.0 H RDW Coeff of Jennifer 18.8 H Plt Count 146 L MPV 11.8 Immature Gran % (Auto) 0.500 Neut % (Auto) 68.2 Lymph % (Auto) 15.5 L Rankin % (Auto) 10.4 H Eos % (Auto) 4.8 Baso % (Auto) 0.6 Absolute Neuts (auto) 8.2 H Absolute Lymphs (auto) 1.85 Nucleated RBC % 0 Platelet Estimate SLT DEC Polychromasia 1+ Anisocytosis 1+ ESR 91 H PT 25.6 H INR 2.3 Sodium 135 Potassium 3.5 Chloride 91 L Carbon Dioxide 28.0 Anion Gap 16 H BUN 43 H Creatinine 5.88 H Estim Creat Clear Calc 9.99 L* Est GFR (MDRD) Non-Af 9 L BUN/Creatinine Ratio 7.3 L Glucose 103 H Calcium 9.5 Total Bilirubin 0.76 AST 41 H ALT 17 Alkaline Phosphatase 515 H Total Protein 7.2 Albumin 3.4 Globulin 3.8 Albumin/Globulin Ratio 0.9 Radiography Diagnostic Testing: Clinical Impression(s) from Imaging Studies Abdomen/Pelvis CT 06/23/25 11:14 IMPRESSION: Stable examination. There is evidence of irregularity of the inferior endplate of the L2 vertebrae and superior endplate of the L3 vertebrae. Infectious process should be ruled out. Reading Location: [id number] Discharge Plan Triage Chief Complaint: Back ED Provider: Amy Viramontes Dx/Rx/DC Orders Clinical Impression: Back pain, Leukocytosis, Weakness Prescriptions: No Action alprazolam [Xanax] 1 mg tablet 1 mg PO QHS doxycycline hyclate 100 mg tablet 100 mg PO BID fluconazole 200 mg tablet 200 mg PO DAILY cyclobenzaprine 10 mg tablet 10 mg PO BID albuterol sulfate 90 mcg/actuation HFA aerosol inhaler 2 puff inhalation Q4-6H PRN (Reason: shortness of breath or wheezing) Patient Comments: pt hasnt taken in over year metoclopramide HCl 5 mg tablet 2.5 mg PO QAC Qty: 50 1RF Rx Instructions: administer 30 minutes before meals midodrine 10 mg tablet See Rx Instructions PO .COMPLEX Patient Comments: Take up to 4 tabs on dialysis days Rx Instructions: orally; up to 4 tabs on dialysis days (-) Velphoro 500 mg tablet,chewable 500 mg PO TID levothyroxine 75 mcg tablet 75 mcg PO DAILY Nephro-Baltazar 0.8 mg tablet 1 tab PO DAILY warfarin [Jantoven] 1 mg tablet 2 mg PO .satn Protocol: Dose Management Condition: Sunday Dose/Route: 2 mg Instruction: 1 x 2 mg tablet Condition: Sunday Dose/Route: 1 mg Instruction: 1 x 1 mg tablet Condition: Sunday Dose/Route: 1 mg Instruction: 1 x 1 mg tablet Condition: Sunday Dose/Route: 1 mg Instruction: 1 x 1 mg tablet Condition: Dose/Route: 1 mg Instruction: 1 x 1 mg tablet Condition: Sunday Dose/Route: 1 mg Instruction: 1 x 1 mg tablet Condition: Sunday Dose/Route: 2 mg Instruction: 1 x 2 mg tablet Protocol Text: Adjustment Start Date: Sunday06/22/25 INR Value: 3.4 INR Date: 06/22/25 Recheck Date: 06/29/25 Patient Comments: BASED ON INR warfarin 2 mg tablet 1 mg PO . Protocol: Dose Management Condition: Sunday Dose/Route: 2 mg Instruction: 1 x 2 mg tablet Condition: Sunday Dose/Route: 1 mg Instruction: 1 x 1 mg tablet Condition: Sunday Dose/Route: 1 mg Instruction: 1 x 1 mg tablet Condition: Sunday Dose/Route: 1 mg Instruction: 1 x 1 mg tablet Condition: Dose/Route: 1 mg Instruction: 1 x 1 mg tablet Condition: Sunday Dose/Route: 1 mg Instruction: 1 x 1 mg tablet Condition: Sunday Dose/Route: 2 mg Instruction: 1 x 2 mg tablet Protocol Text: Adjustment Start Date: Sunday06/22/25 INR Value: 3.4 INR Date: 06/22/25 Recheck Date: 06/29/25 Patient Comments: BASED ON INR lactulose [Constulose] 10 gram/15 mL solution 20 ml PO QDAY amoxicillin 500 mg capsule 2,000 mg PO DAILY PRN (Reason: DENTAL TREATMENT) Rx Instructions: TAKE 1 HOUR PRIOR TO TREATMENT triamcinolone acetonide 0.1 % lotion 1 applic topical BID PRN (Reason: SKIN 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) Liquacel 16-100 gram-kcal/30 mL liquid 30 ml PO DAILY docusate sodium [Colace] 100 mg capsule 200 mg PO QHS docusate sodium [Colace] 100 mg capsule 100 mg PO DAILY pantoprazole 40 mg tablet,delayed release (DR/EC) 40 mg PO QAM Qty: 90 3RF Primary Care Provider: Castro Ferrara Referrals: Castro Ferrara DO [Primary Care Provider] - Print Language: Montenegrin Disposition Disposition: DC/Tx to Another Type of HCF What to do if you have Problems For any increased pain, shortness of breath, bleeding, nausea or vomiting, chestpain, or any unexpected problems, contact your Primary Care Provider. Call [facility] ([phone]) or report to the closest Emergency Room. Call 911 if necessary. 06/23/25 0254 <Electronically signed by Remus Ungur DO> Cosigner Signature (if applicable): CC: Dr. Castro Ferrara, DO ~ Signed [facility] Work Phone: 1(242) 473-548408-05-2025 Radiology Diagnostic study [facility]07-27-2025 Radiology Diagnostic study [facility]06-12-2025 Radiology Diagnostic study [facility] 04-30-2025 Radiology Diagnostic study [facility]05-31-2025 Radiology Diagnostic study [facility]05-31-2025 Radiology Diagnostic study [facility]05-31-2025 Hospital Discharge instructions Additional Instructions The x-rays of your hip, pelvis, and femur show no fractures. I suspect you have pain from bruising. I recommend you ice and 20-minute sessions off-and-on throughout the day and take Tylenol every 6 hours as needed. Pain is not improving in 7 to 10 days see your family doctor. [facility] Work Phone: 1(214) 542-762605-28-2025 History of Present illness Narrative* Vaishnavi Fry, - 04/15/2025 4:00 PM EDT -Referring Provider for today's consult: Self, Self -Primary Care Provider: Castro Ferrara History of Present Illness Christian Amador is a 75 y.o. male who presents to the [facility] today for consultation regarding his diagnosis of Follow-up (Pt's states he was in the hospital at [facility] in 02/13/2025-03/09/2025 for pneumonia, rectal bleeding, cat scan of abdomen and gastric emptying test done at [place]. ). I have reviewed his medical, surgical, [...] due to a loculated pleural effusion thought annmarie related to PNA which was treated with [...] with evidence of colonic ischemia which was thoughtto be the source. Since discharge, he has been feeling overall ok. Fatigue/energy level has been fluctuating. Itchingremains a prominent issue. He denies signs of [...] N/A; Surgeon: Ronnie Ferrari MD; Location: [facility] [place] [facility] 06/2022 INSERTION CVC TUNNELED N/A 10/10/2021 Laterality: N/A; Surgeon: Remy Ferrer MD; Location: [facility] INTERVENTIONAL RADIOLOGY (VIR) INSERTION CVC TUNNELED N/A 10/03/2021 Laterality: N/A; Surgeon: Kaylin Duran II, MD; Location: [facility] INTERVENTIONAL RADIOLOGY (VIR) PLACEMENT PROBE FOR TRANSESOPHAGEAL ECHOCARDIOGRAPHY N/A 09/23/2021 Laterality: N/A; Surgeon: Sadia Nieto MD; Location: [facility] MAIN OR ESS NASAL DIAGNOSTIC Bilateral 09/20/2021 Laterality: Bilateral; Surgeon: You Wise MD; [facility] SPHENOID SINUSOTOMY WITH REMOVAL TISSUE Right 09/20/2021 Laterality: Right; Surgeon: You Wise MD; Location: [facility] MA[facility] OR ESS TOTAL ETHMOIDECTOMY Right 09/20/2021 Laterality: Right; Surgeon: You Wise MD; Location: [facility] MAIN OR REMOVAL CVC TUNNELED Right 07/07/2016 Laterality: Right; Surgeon: Kaylin Grider MD; Location: [facility] INTERVENTIONAL RADIOLOGY ([facility]) CARDIAC VEIN ELECTRODE PLACEMENT FOR LV PACING N/A 05/26/2016 Laterality: N/A; Surgeon: Yi Cody MD; Location: [facility] EP PACEMAKER PLACEMENT N/A 05/26/2016 Laterality: N/A; Surgeon: Yi Cody MD; Location: [facility] EP INSERTION CVC TUNNELED Right 05/19/2016 Laterality: Right; Surgeon: Kaylin Grider MD; Location: [facility] INTERVENTIONAL RADIOLOGY (VIR) INSERTION CVC TUNNELED Left 05/18/2016 Laterality: Left; Surgeon: Kaylin Grider MD; Location: [facility] INTERVENTIONAL RADIOLOGY (VIR) PACEMAKER ELECTRODE [...] [facility] CARDIAC PACEMAKER PLACEMENT 08/31/2003 Implant: [employer] [id number] [place] [address] APPENDECTOMY ND ANES HRT PERICRD SAC&GRT VSLS W/SENIOR DATA MINING ANALYST OXTJ >1MO PO Home Medications Current Outpatient Medications Medication Sig Acetaminophen (TYLENOL PO) Take 1,000 mg by mouth 2 times daily. ALPRAZolam 1 MG tablet Take 1 tablet by mouth at bedtime. B Fracihc-M-Emhhi Acid (NEPHRO-BALTAZAR PO) Take 1 tablet by [...] resp. rate 16, height 1.708 m (5' 7.25"), weight 62.6 kg (138 lb), SpO2 96%. [...] septal wall wall thickness (max 1.2 cm). Normalsystolic function, LVEF 55-60%, with abnormal septal motion. [...] DI Vmax 0.27, DI VTI 0.33) with mildregurgitation. Mild to moderate tricuspid regurgitation with moderate [...] at 71 bpm. - Mild TR, mild ND. - RVSP estimated 42 mmHg. - Compared [...] care of Christian Amador. Vaishnavi Fry DO Elevator Constructor Electric of Clinical Medicine Division of Gastroenterology, Hepatology and Nutrition [facility] Pager: [phone] * Brenda Arana LPN - 04/15/2025 4:00 PM EDT Patient verified name and date of with this LABOR RELATIONS SPECIALIST. Pt. Is accompanied by his today. [facility] Inst[facility]* Patient Instructions* Vaishnavi Fry DO - 04/15/2025 4:00 PM EDT Plan for repeat liver ultrasound in 6months which can be completed locally Atarax prescribed for itching Follow up in 6months with Kelby Chance [facility] medicine Diagnostic study [facility]04-29-2025 Evaluation note* Diagnosis Onset Date Resolution Status Admit Date Early satiety acute March 17, 2025 2:51pm Emesis, persistent acute March 17, 2025 2:51pm Necrosis of colon acute February 182024 2:51pm 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 gastropathy 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 March 17, 2025 2:51pm Abnormal CT scan, chest acute M 2024 9:12am Cardiomyopathy chronic March 25, 025 9:12am Dyspnea chronic March 25, 2025 9:12am MIA (obstructive sleep apnea) chroni c March 25, 2025 9:12am GI bleed acute June 01 8:34am Hematochezia resolved June 01 025 8:34am [facility] Work Phone: 1(454) 210-957704-18-2025 Miscellaneous Notes* Nursing Notes - Adeel Ramon RN - 03/06/2025 3:07 PM EDTSummary: discharge Patient discharge instructions reviewed, to include follow-up scheduling, discharge medications andchanges to home medications, discharge plans. IV removed; patient denies any questions. Patient discharged in stable condition, by wheelchair, accompanied by RN * Nursing Notes - Alyssa Molina RN - 03/06/2025 2:12 PM EDT Tunneled HD CVC used for HD treatment, [...] O2 (Room air) Changes In Status no [place] Procedure Orders Written no Sending RN/Tech Name Alyssa Phone [phone] Returning to Patient Care Unit Transport yes General Pain Documentation (Adult, OB, Peds) Presence of Pain denies pain/discomfort Presence of Pain Score (Auto-calculated) 0 LOC/Significant Event RASS ([place] Agitation-Sedation Scale) 0-->alert and calm Significant Event HD treatment end Post-Hemodialysis Assessment Report given to GIO Donnelly * Plan of Care - Alyssa Molina RN - 03/06/2025 11:24 AM EDT Problem: Hemodialysis Goal: Safe, Effective Therapy Delivery Outcome: Progressing Goal: Effective Tissue Perfusion Outcome: Progressing Goal: Absence of Infection Signs and Symptoms Outcome: Progressing iHD tx ordered x 3.5 hrs. Plan to remove 2 kg as pt tolerates.. Pt on 2K bath as ordered, K+ of 5.1on 03/06/2025. During Christian Amador's Dialysis Treatment on [...] monitor patient throughout for tolerance to treatment * Plan of Care - Sagrario Guevara RN - 03/05/2025 11:30 PM EDT Problem: Infection Goal: Absence of Infection Signs and Symptoms Outcome: Progressing Problem: Fall Injury Risk Goal: Fall/Trauma/Injury Risk: Absence of Trauma/Injury/Falls Description: Patient will demonstrate the desired outcomes. Outcome: Progressing Problem: Pain Acute Goal: Optimal Pain Control and Function Outcome: Progressing * Nursing Notes - Kenn Olivo RN - 03/04/2025 2:12 PM EDT During Christian Sequeiras Dialysis Treatment on 03/04/2025 [...] Testing Complete yes Changes In Status no [place] Procedure Orders Written no Sending RN/Tech Name [...] Post-Hemodialysis Assessment Report given to GIO Douglas * Nursing Notes - Stella Swenson RN - 03/04/2025 12:03 PM EDT Pt next PTT is due at 1415. HD RN accidentally draw pt PTT whiles the pt is at HD and it was 113.6.Per sliding scale, If PTT is 112-126, hold infusion for 60 minutes and decrease dose by 2 units/kg/hr. DO you want me to hold the heparin drip or let it run and draw the right PTT, which is due at 1415. MD Aldana notified. * Plan of Care - Thea Villa RN - 03/04/2025 11:12 AM EDT During Christian Amador's Dialysis Treatment on 03/04/2025 [...] patient on home care, and reportable symptoms * Nursing Notes - Chuck Syed RN - 03/04/2025 7:28 AM EDT The blood culture order from the line was mistakenly marked as collected by the GAS REGULATOR REPAIRER, but it was notcollected properly. Dr. Mel Aldana was notified and a re-order was requested. * Plan of Care - Chuck Syed RN - 03/04/2025 2:46 AM EDT Problem: Adult Inpatient Plan of Care Goal: Plan of Care Review Outcome: Progressing Goal: Patient-Specific Goal (Individualized) Outcome: Progressing Goal: Absence of Hospital-Acquired Illness or Injury Outcome: Progressing Goal: Optimal Comfort and Wellbeing Outcome: Progressing Goal: Readiness for Transition of Care Outcome: Progressing * Nursing Notes - Lorene Méndez RN - 03/02/2025 2:47 PM EDT HD Treatment Note iHD treatment complete, blood [...] window dressing to his TDC. Small amounts ofblood still seeping from tears, so sterile 2x2 gauze placed under window and Kristina ROOM INSPECTOR, consulted. Art & Yovani pressures were mildly [...] Unit. 03/02/25 1430 Machine Checks Station/Room Number [id number] Tx Assessment/Safety (Pre/Post) Blood Liters Processed (BLP) 78.2 Transport Modality bed Dialyzer Clearance clear Tolerance to Dialysis Procedure well Treatment Assessment Blood Flow Rate (BFR) mL/min 400 Dialysate Flow Rate (DFR) mL/min 800 mL/min Arterial Pressure (AP) mmHg -250 Venous Pressure (TISSUE TECHNICIAN) mmHg 200 Transmembrane Pressure (TMP) mmHg 40 [...] Additional Restrictions no Changes In Status no [place] Procedure Orders Written no Sending RN/Felix Name GIO Paulson Phone [phone] Returning to Patient Care Unit Transport yes [...] Assessment Report given to Stella Clemons RN * Plan of Care - Lorene Méndez RN - 03/02/2025 11:58 AM EDT Problem: Hemodialysis Goal: Safe, Effective Therapy Delivery Outcome: Progressing Goal: Effective Tissue Perfusion Outcome: Progressing Goal: Absence of Infection Signs and Symptoms Outcome: Progressing iHD tx ordered x 3.5 hrs. Plan to remove 2 kg as pt tolerates. Last iHD tx was 02/28/2025. Pt on 3Kbath as ordered, K+ of 4.6 on 03/02/2025. [...] monitor patient throughout for tolerance to treatment * Plan of Care - Elisa Perera RN - 03/01/2025 1:31 PM EDT Problem: Infection Goal: Absence of Infection Signs and Symptoms Outcome: Progressing Problem: Fall Injury Risk Goal: Fall/Trauma/Injury Risk: Absence of Trauma/Injury/Falls Description: Patient will demonstrate the desired outcomes. Outcome: Progressing Goal: Knowledge of risk factors/behavior modification Description: Knowledge of risk factors/behavior modification for fall/injury prevention Outcome: Progressing * Nursing Notes - Liiga Zabala RN - 02/28/2025 8:11 PM EDT 02/28/251918 Tx Assessment/Safety (Pre/Post) Blood Liters Processed [...] Post-Hemodialysis Assessment Report given to abraham lundberg * Plan of Care - Ligia Zabala RN - 02/28/2025 4:45 PM EDT During Christian Amador's Dialysis Treatment on 02/28/2025 the following interventions for Prevent/Manage Dialysis Procedure Complication were completed: Ensure system correctly primed, connections secure, and air detector alarms engaged. Verify correct machine setting with physician order. Assure proper dialysate conductivity and water quality prior to starting treatment Closely monitor patient throughout for tolerance to treatment During Christian Amador's Dialysis Treatment on 02/28/2025 the following interventions [...] patient on home care, and reportable symptoms * Nursing Notes - Stella Swenson RN - 02/28/2025 3:14 PM EDT Pt PTT is due but pt is at HD. Told Ligia DWYER RN about the PTT and he said he will draw it. * Plan of Care - Perla Greer RN - 02/28/2025 5:56 AM EDT Problem: Adult Inpatient Plan of Care Goal: Plan of Care Review Outcome: Progressing Goal: Absence of Hospital-Acquired Illness or Injury Outcome: Progressing Goal: Optimal Comfort and Wellbeing Outcome: Progressing Problem: Hemodialysis Goal: Safe, Effective Therapy Delivery Outcome: Progressing Goal: Effective Tissue Perfusion Outcome: Progressing Goal: Absence of Infection Signs and Symptoms Outcome: Progressing Problem: Breathing Pattern Ineffective Goal: Effective Breathing Pattern Outcome: Progressing * Nursing Notes - Jordi Rodas RN - 02/26/2025 10:32 AM EDT 02/26/25 1032 Tx Assessment/Safety (Pre/Post) Blood Liters [...] Additional Restrictions no Changes In Status no [place] Procedure Orders Written no Sending RN/Tech Name Jordi POWERS Returning to Patient Care Unit Transport yes LOC/Significant Event Significant Event iHD completed Post-Hemodialysis Assessment Report given to Primary RN * Plan of Care - Jordi Rodas RN - 02/26/2025 7:32 AM EDT Problem: Hemodialysis Goal: Safe, Effective Therapy Delivery [...] patient on home care, and reportable symptoms * Plan of Care - Nini Keane RN - 02/25/2025 9:54 PM EDT Problem: Adult Inpatient Plan of Care Goal: Absence of Hospital-Acquired Illness or Injury Outcome: Progressing Goal: Optimal Comfort and Wellbeing Outcome: Progressing Problem: Breathing Pattern Ineffective Goal: Effective Breathing Pattern Outcome: Progressing * Nursing Notes - Stella Swenson RN - 02/25/2025 7:20 PM EDT A dual assessment of skin condition was performed by this credit underwriter and Bonnie Layton RN> Skin Assessment: Skin not within defined limits. - Photo taken and uploaded into notes in IHIS: Yes Fabian Score: 19 LDA Added:No Stella Swenson RN * Nursing Notes - Jordi Rodas RN - 02/25/2025 10:57 AM EDT 02/25/25 1057 Tx Assessment/Safety (Pre/Post) Blood Liters [...] Additional Restrictions no Changes In Status no [place] Procedure Orders Written no Sending RN/Tech Name Jordi POWERS Returning to Patient Care Unit Transport yes LOC/Significant Event Significant Event iHD completed Post-Hemodialysis Assessment Report given to Primary RN * Plan of Care - Jordi Rodas RN - 02/25/2025 7:56 AM EDT Problem: Hemodialysis Goal: Safe, Effective Therapy Delivery [...] treatment During Christian Amador's Dialysis Treatment on 02/25/2025 the following interventions to Protect/Monitor Dialysis Line/Access Site were completed: Inspect and monitor dialysis line and access site. Change dressing and caps per protocol Educate patient on home care, and reportable symptoms * Plan of Care - Enrico Kyle RN - 02/24/2025 10:09 PM EDT Problem: Adult Inpatient Plan of Care Goal: Plan of Care Review Outcome: Progressing Goal: Patient-Specific Goal (Individualized) Outcome: Progressing Goal: Absence of Hospital-Acquired Illness or Injury Outcome: Progressing Problem: Hemodialysis Goal: Safe, Effective Therapy Delivery Outcome: Progressing Goal: Effective Tissue Perfusion Outcome: Progressing Goal: Absence of Infection Signs and Symptoms Outcome: Progressing Problem: Breathing Pattern Ineffective Goal: Effective Breathing Pattern Outcome: Progressing * Nursing Notes - Thea Villa RN - 02/23/2025 5:47 PM EDT 02/23/25 1730 Tx Assessment/Safety (Pre/Post) Blood Liters Processed (BLP) 76.4 Transport Modality bed Dialyzer Clearance moderate Tolerance to Dialysis Procedure Well with 2L UF off. Profile A/B throughout tx. Treatment Assessment Blood Flow Rate (BFR) mL/min 400 Dialysate Flow Rate (DFR) mL/min 800 mL/min Arterial Pressure (AP) mmHg -230 Venous Pressure (TISSUE TECHNICIAN) mmHg 160 Transmembrane Pressure (TMP) mmHg 30 [...] Additional Restrictions no Changes In Status no [place] Procedure Orders Written no Sending RN/Tech Name Juju GIO Phone [phone] Returning to Patient Care Unit Transport yes Cognitive/Neuro/Behavioral WDL Cognitive/Neuro/Behavioral WDL WDL Safety Patient Safety WDL ex;safety factors Safety Management Safety Promotion/Fall Prevention safety round/check completed;fall prevention program maintained LOC/Significant Event RASS (Crain Agitation-Sedation Scale) 0-->alert and calm Significant Event HD completed Post-Hemodialysis Assessment Report given to Raissa POWERS * Plan of Care - Thea Villa RN - 02/23/2025 2:40 PM EDT During Christian Amador's Dialysis Treatment on 02/23/2025 the following interventions for Monitoring and Managing Fluid Electrolyte/Acid Base Balance were completed: Monitor intake and output. Monitor daily weight. Enforce fluid restriction. Manage electrolyte shifts and resulting effect. Assess presence/location of edema. During [facility] Dialysis Treatment on 02/23/2025 [...] patient on home care, and reportable symptoms * Nursing Notes - Nayeli Holloway RN - 02/23/2025 2:04 PM EDT 02/23/25 1402 Outlier Review Reviewing for: Outlier Meeting Medical Necessity: Yes Medical Necessity Summary: heparin gtt until INR therapeutic. Lovenox bridge not appropriate due todialysis patient and mechanical mitral valve. Barriers: IV Drug Needs;Standard Treatment/Therapy Barrier(s) Comments: no discharge barriers. INR 1.1 today - goal 2.5-3.5 Intervention: No intervention needed;Discussion with team Ever is established w/a local coumadin clinic - will follow up there once INR is therapeutic. Juju Su RN Clinical Legal Office Administrator Please note that I am a float career services representative and may not cover the same service every day. Please call the main Care Management office at [phone] for up-to-date coverage. * Plan of Care - Nellie Murphy RN - 02/22/2025 9:35 AM EDT Problem: Adult Inpatient Plan of Care Goal: [...] Ineffective Goal: Effective Breathing Pattern Outcome: Progressing * Plan of Care - Rik Bird RN - 02/22/2025 1:24 AM EDT Problem: Adult Inpatient Plan of Care Goal: Plan of Care Review Outcome: Progressing Goal: Patient-Specific Goal (Individualized) Outcome: Progressing Goal: Absence of Hospital-Acquired Illness or Injury Outcome: Progressing Goal: Optimal Comfort and Wellbeing Outcome: Progressing Goal: Readiness for Transition of Care Outcome: Progressing * Nursing Notes - Lorene Méndez RN - 02/21/2025 6:42 PM EDT HD Treatment Note iHD treatment complete, blood [...] tx. Report given to Farrah Anthony, RN, [phone]. HD RN remained at bedside for duration of treatment. Pt stable upon departure from Dialysis Unit. 02/21/25 1830 Machine Checks Station/Room Number [id number] Tx Assessment/Safety (Pre/Post) Blood Liters Processed (BLP) 77.3 Transport Modality bed Dialyzer Clearance moderate Tolerance to Dialysis Procedure well Treatment Assessment Blood Flow Rate (BFR) mL/min 400 Dialysate Flow Rate (DFR) mL/min 800 mL/min Arterial Pressure (AP) mmHg -190 Venous Pressure (TISSUE TECHNICIAN) mmHg 170 Transmembrane Pressure (TMP) mmHg 10 [...] Additional Restrictions no Changes In Status no [place] Procedure Orders Written no Sending RN/Felix Name GIO Paulson Phone [phone] Returning to Patient Care Unit Transport yes [...] Assessment Report given to Farrah Anthony RN, [phone] * Plan of Care - Lorene Méndez RN - 02/21/2025 4:44 PM EDT Problem: Hemodialysis Goal: Safe, Effective Therapy Delivery Outcome: Progressing Goal: Effective Tissue Perfusion Outcome: Progressing Goal: Absence of Infection Signs and Symptoms Outcome: Progressing iHD tx ordered x 3.5 hrs. Plan to remove 2 kg as pt tolerates. Last iHD tx was 02/19/2025. Pt on 3Kbath as ordered, K+ of 3.7 on 02/21/2025. [...] monitor patient throughout for tolerance to treatment * Plan of Care - Nalini Elizabeth RN - 02/20/2025 9:55 AM EDT Problem: Adult Inpatient Plan of Care Goal: Optimal Comfort and Wellbeing Outcome: Progressing Goal: Readiness for Transition of Care Outcome: Progressing Problem: Hemodialysis Goal: Absence of Infection Signs and Symptoms Outcome: Progressing * Nursing Notes - Lolis Manriquez RN - 02/19/2025 7:44 PM EDT 1820: PTT came back at 95.8. Physician renita'd Heparin gtt. To continue to run at the current rate. * Nursing Notes - Alonso Cohen RN - 02/19/2025 6:28 PM EDT HD Treatment Note Access used for this [...] Negative Hepatitis B Surface Antigen Resulted From [facility] lab Date Hepatitis B Surface Antigen Status [...] and calm Significant Event HD treatment complete; * Plan of Care - Alonso Cohen RN - 02/19/2025 2:57 PM EDT HD Treatment Plan of Care Plan for [...] monitor patient throughout for tolerance to treatment * Plan of Care - Nalini Elizabeth RN - 02/19/2025 10:43 AM EDT Problem: Adult Inpatient Plan of Care Goal: Optimal Comfort and Wellbeing Outcome: Progressing Goal: Readiness for Transition of Care Outcome: Progressing Problem: Hemodialysis Goal: Effective Tissue Perfusion Outcome: Progressing Goal: Absence of Infection Signs and Symptoms Outcome: Progressing * Plan of Care - Casey Natarajan RN - 02/18/2025 4:09 PM EDT Problem: Adult Inpatient Plan of Care Goal: Plan of Care Review Outcome: Progressing * Plan of Care - Nalini Elizabeth RN - 02/18/2025 11:48 AM EDT Problem: Adult Inpatient Plan of Care Goal: Optimal Comfort and Wellbeing Outcome: Progressing Goal: Readiness for Transition of Care Outcome: Progressing Problem: Breathing Pattern Ineffective Goal: Effective Breathing Pattern Outcome: Progressing Problem: Hemodialysis Goal: Effective Tissue Perfusion Outcome: Progressing Goal: Absence of Infection Signs and Symptoms Outcome: Progressing * Nursing Notes - Abigail Hollingsworth RN - 02/17/2025 8:28 PM EDT 02/17/251939 Tx Assessment/Safety (Pre/Post) Blood Liters Processed [...] Device room air Treatment Record Stop Time 194 Initiation prime given (specify mL) Fluid Volume Removal 2300 Total Fluid Given 300 Returning to Patient Care Unit Transport Testing Complete yes NPO no Additional Restrictions none Changes In Status no [place] Procedure Orders Written no Sending RN/Tech Name Abigail RN Phone [phone] Returning to Patient Care Unit Transport yes Cognitive/Neuro/Behavioral WDL Cognitive/Neuro/Behavioral WDL WDL Motor Response General General return to WDL General Pain Documentation (Adult, OB, Peds) Presence of Pain denies pain/discomfort Presence of Pain Score (Auto-calculated) 0 Sleep/Rest/Relaxation (Adult,Pediatric,OB) Sleep/Rest/Relaxation awake LOC/Significant Event RASS ([place] Agitation-Sedation Scale) 0-->alert and calm Significant Event Off circ, conversant Post-Hemodialysis Assessment Report given to Prim RN * Plan of Care - Abigail Hollingsworth RN - 02/17/2025 5:12 PM EDT Problem: Hemodialysis Goal: Safe, Effective Therapy Delivery [...] monitor patient throughout for tolerance to treatment * Nursing Notes - Nalini Elizabeth RN - 02/17/2025 1:45 PM EDT Requested that pt do walk of life with staff. Pt refused saying that he was to weak to walk today. Since pt is not leaving today will attempt to do walk of like again tomorrow when his is here. * Plan of Care - Tia Billingsley MD - 02/16/2025 9:29 PM EDT Brief GI/Hepatology update Christian Amador is a 74 y.o. 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 Colonoscopy 02/16/25 Impression: - Moderate [...] any questions. Tia Billingsley MD Fellow, Gastroenterology * Nursing Notes - Ivan Mcmahon RN - 02/16/2025 5:25 PM EDT 02/16/25 1725 Tx Assessment/Safety (Pre/Post) Post Procedure [...] Additional Restrictions none Changes In Status no [place] Procedure Orders Written no Sending RN/Tech Name Ivan POWERS Phone [phone] Returning to Patient Care Unit Transport yes LOC/Significant Event RASS ([place]rain Agitation-Sedation Scale) 0-->alert and calm Significant Event HD tx completed. Post-Hemodialysis Assessment Report given to To Nalini POWERS 3 hour HD tx completed. Blood returned. NET UF=2kgs. DML=461rr/min. No medications administered. Stable tx with soft bp, systolic in the 90's most of session. Alert and oriented X4. * Plan of Care - Ivan Mcmahon RN - 02/16/2025 2:57 PM EDT Planning a 3 hour dialysis session today [...] and resulting effect. Assess presence/location of edema. * Plan of Care - Nalini Elizabeth RN - 02/16/2025 11:07 AM EDT Problem: Adult Inpatient Plan of Care Goal: Optimal Comfort and Wellbeing Outcome: Progressing Goal: Readiness for Transition of Care Outcome: Progressing Problem: Hemodialysis Goal: Effective Tissue Perfusion Outcome: Progressing Goal: Absence of Infection Signs and Symptoms Outcome: Progressing Problem: Breathing Pattern Ineffective Goal: Effective Breathing Pattern Outcome: Progressing * Nursing Notes - Juan Alberto Fernandez RN - 02/16/2025 10:25 AM EDT Per Farrah with [facility] ([phone]) who states blood cultures drawn01/2725 have no growth. Expected to finalize tomorrow. Notified hospitalist Dr Rizo. Si[place] Fern[place] [phone] * Nursing Notes - Nalini Duke RN - 02/16/2025 10:05 AM EDT Report called to Nalini Webber updated on patient status post procedure. * Nursing Notes - Beckie Mota RN - 02/16/2025 3:21 AM EDT MD Serrano notified that patients BM at 0300 was yellow liquid with some particles and picture was uploaded into media. also notified that patient had finished initial 4000mL of colonoscopy prep. This RN asked if patient needed to receive PRN Golytely dose. MD declined PRN dose stating BM did not have any stool in it and it would be fine. * Plan of Care - Beckie Mota RN - 02/16/2025 12:24 AM EDT Problem: Adult Inpatient Plan of Care Goal: Plan of Care Review Outcome: Progressing Goal: Patient-Specific Goal (Individualized) Outcome: Progressing Goal: Absence of Hospital-Acquired Illness or Injury Outcome: Progressing Goal: Optimal Comfort and Wellbeing Outcome: Progressing Goal: Readiness for Transition of Care Outcome: Progressing * Plan of Care - Nini Keane RN - 02/15/2025 12:42 AM EDT Problem: Adult Inpatient Plan of Care Goal: Optimal Comfort and Wellbeing Outcome: Progressing Problem: Breathing Pattern Ineffective Goal: Effective Breathing Pattern Outcome: Progressing * Significant Event - Linn Serrano MD - 02/14/2025 7:37 PM EDT RPP + for human metapneumo virus will place required contact and droplet precautions. Linn Serrano MD Overnight cross covering physician [phone] * Plan of Care - Ekta Rasmussen RN - 02/14/2025 11:13 AM EDT Problem: Breathing Pattern Ineffective Goal: Effective Breathing Pattern Outcome: Progressing Intervention: Promote Improved Breathing Pattern Flowsheets (Taken 02/14/2025 1112) Head of Bed (HOB) Positioning: HOB at 30-45 degrees * Plan of Care - Kenrick Lopez MD - 02/14/2025 9:49 AM EDT Thoracic Surgery Updated Plan of Care Thoracic [...] Please identify the Thoracic Surgery consult resident carton waxing machine operator via [employer]. The credit underwriter of this note may not be the resident carton waxing machine operator or available for immediate responses. Thank you for allowing us to participate in the excellent care of this patient. Kenrick Lopez MD Cardiothoracic Surgery PGY-2 #[id number] * Plan of Care - Linn Serrano MD - 02/14/2025 6:58 AM EDT Overnight Call: Previous Progress Notes and/or H&P Reviewed. Informed that pt with "pt has twitching of face states a little more since HD done but his "body was twitching then and not so much now. we are getting ready to draw PTT (heparin gtt) and am labs do you want anything added? " - advised RN to get chem 7 earlier and added calcium and mag. No further reports of twitching. Linn Serrano MD Overnight cross covering physician [phone] * Plan of Care - Nini Keane RN - 02/14/2025 2:49 AM EDT Problem: Adult Inpatient Plan of Care Goal: Absence of Hospital-Acquired Illness or Injury Outcome: Progressing Goal: Optimal Comfort and Wellbeing Outcome: Progressing * Nursing Notes - Ivan Mcmahon RN - 02/13/2025 6:40 PM EDT 02/13/25 1840 Tx Assessment/Safety (Pre/Post) Less Than 30 Days Hepatitis B Surface Antigen Status Negative Hepatitis B Surface Antigen Resulted From [facility] lab Date Hepatitis B Surface Antigen [...] Additional Restrictions none Changes In Status no [place] Procedure Orders Written no Sending RN/Tech Name Ivan POWERS Phone [phone] Returning to Patient Care Unit Transport yes LOC/Significant Event RASS (Crain Agitation-Sedation Scale) 0-->alert and calm Significant Event HD tx completed. Post-Hemodialysis Assessment Report given to Report to Adiel POWERS 3 hour HD tx completed. Blood returned. NET UF=1kg per pt request. States "usually it's 0.5-1kg". TCO=799ui/min. Coumadin 2mg and Heparin drip started at 12units/kg/hr. Stable tx. * Plan of Care - Ivan Mcmahon RN - 02/13/2025 4:39 PM EDT Planning a 3 hour HD tx with [...] and resulting effect. Assess presence/location of edema. * Plan of Care - Shana Lew MD - 02/13/2025 3:02 PM EDT Interventional Plan of Care Note After Pulmonary evaluated, it was determined that the effusion was chronic and does not require chest tube placement. Will cancel chest tube placement. Please reach out to IR if this changes. Shana Lew MD Diagnostic Radiology PGY3 R2 * Nursing Notes - Adiel Olvera RN - 02/13/2025 12:33 PM EDT Images from the original note were [...] Added:Yes [facility]vera [facility] Miscellaneous Notes* Nursing Notes - Adeel Ramon RN - 03/06/2025 3:07 PM EDTSummary: discharge Patient discharge instructions reviewed, to include follow-up scheduling, discharge medications andchanges to home medications, discharge plans. IV removed; patient denies any questions. Patient discharged in stable condition, by wheelchair, accompanied by RN * Nursing Notes - Alyssa Molina RN - 03/06/2025 2:12 PM EDT Tunneled HD CVC used for HD treatment, [...] O2 (Room air) Changes In Status no [place] Procedure Orders Written no Sending RN/Tech Name Alyssa Phone [phone] Returning to Patient Care Unit Transport yes General Pain Documentation (Adult, OB, Peds) Presence of Pain denies pain/discomfort Presence of Pain Score (Auto-calculated) 0 LOC/Significant Event RASS ([place]rain Agitation-Sedation Scale) 0-->alert and calm Significant Event HD treatment end Post-Hemodialysis Assessment Report given to GIO Donnelly * Plan of Care - Alyssa Molina RN - 03/06/2025 11:24 AM EDT Problem: Hemodialysis Goal: Safe, Effective Therapy Delivery Outcome: Progressing Goal: Effective Tissue Perfusion Outcome: Progressing Goal: Absence of Infection Signs and Symptoms Outcome: Progressing iHD tx ordered x 3.5 hrs. Plan to remove 2 kg as pt tolerates.. Pt on 2K bath as ordered, K+ of 5.1on 03/06/2025. During [facility] Dialysis Treatment on [...] monitor patient throughout for tolerance to treatment * Plan of Care - Sagrario Guevara RN - 03/05/2025 11:30 PM EDT Problem: Infection Goal: Absence of Infection Signs and Symptoms Outcome: Progressing Problem: Fall Injury Risk Goal: Fall/Trauma/Injury Risk: Absence of Trauma/Injury/Falls Description: Patient will demonstrate the desired outcomes. Outcome: Progressing Problem: Pain Acute Goal: Optimal Pain Control and Function Outcome: Progressing * Nursing Notes - Kenn Olivo RN - 03/04/2025 2:12 PM EDT During [facility] Dialysis Treatment on 03/04/2025 [...] Testing Complete yes Changes In Status no [place] Procedure Orders Written no Sending RN/Tech Name [...] Post-Hemodialysis Assessment Report given to GIO Douglas * Nursing Notes - Stella Swenson RN - 03/04/2025 12:03 PM EDT Pt next PTT is due at 1415. HD RN accidentally draw pt PTT whiles the pt is at HD and it was 113.6.Per sliding scale, If PTT is 112-126, hold infusion for 60 minutes and decrease dose by 2 units/kg/hr. DO you want me to hold the heparin drip or let it run and draw the right PTT, which is due at 1415. MD Aldana notified. * Plan of Care - Thea Villa RN - 03/04/2025 11:12 AM EDT During [facility] Dialysis Treatment on 03/04/2025 the following interventions for Monitoring and Managing Fluid Electrolyte/Acid Base Balance were completed: Monitor intake and output. Monitor daily weight. Enforce fluid restriction. Manage electrolyte shifts and resulting effect. Assess presence/location of edema. During [facility] Dialysis Treatment on 03/04/2025 the following [...] patient on home care, and reportable symptoms * Nursing Notes - Chuck Syed RN - 03/04/2025 7:28 AM EDT The blood culture order from the line was mistakenly marked as collected by the GAS REGULATOR REPAIRER, but it was notcollected properly. Dr. Mel Aldana was notified and a re-order was requested. * Plan of Care - Chuck Syed RN - 03/04/2025 2:46 AM EDT Problem: Adult Inpatient Plan of Care Goal: Plan of Care Review Outcome: Progressing Goal: Patient-Specific Goal (Individualized) Outcome: Progressing Goal: Absence of Hospital-Acquired Illness or Injury Outcome: Progressing Goal: Optimal Comfort and Wellbeing Outcome: Progressing Goal: Readiness for Transition of Care Outcome: Progressing * Nursing Notes - Lorene Méndez RN - 03/02/2025 2:47 PM EDT HD Treatment Note iHD treatment complete, blood [...] window dressing to his TDC. Small amounts ofblood still seeping from tears, so sterile 2x2 gauze placed under window and Kritsina ROOM INSPECTOR, consulted. Art & Yovani pressures were mildly [...] Unit. 03/02/25 1430 Machine Checks Station/Room Number [id number] Tx Assessment/Safety (Pre/Post) Blood Liters Processed (BLP) 78.2 Transport Modality bed Dialyzer Clearance clear Tolerance to Dialysis Procedure well Treatment Assessment Blood Flow Rate (BFR) mL/min 400 Dialysate Flow Rate (DFR) mL/min 800 mL/min Arterial Pressure (AP) mmHg -250 Venous Pressure (TISSUE TECHNICIAN) mmHg 200 Transmembrane Pressure (TMP) mmHg 40 [...] Additional Restrictions no Changes In Status no [place] Procedure Orders Written no Sending RN/Tech Name GIO Paulson Phone [phone] Returning to Patient Care Unit Transport yes [...] Assessment Report given to Stella Clemons RN * Plan of Care - Lorene Méndez RN - 03/02/2025 11:58 AM EDT Problem: Hemodialysis Goal: Safe, Effective Therapy Delivery Outcome: Progressing Goal: Effective Tissue Perfusion Outcome: Progressing Goal: Absence of Infection Signs and Symptoms Outcome: Progressing iHD tx ordered x 3.5 hrs. Plan to remove 2 kg as pt tolerates. Last iHD tx was 02/28/2025. Pt on 3Kbath as ordered, K+ of 4.6 on 03/02/2025. [...] monitor patient throughout for tolerance to treatment * Plan of Care - Elisa Perera RN - 03/01/2025 1:31 PM EDT Problem: Infection Goal: Absence of Infection Signs and Symptoms Outcome: Progressing Problem: Fall Injury Risk Goal: Fall/Trauma/Injury Risk: Absence of Trauma/Injury/Falls Description: Patient will demonstrate the desired outcomes. Outcome: Progressing Goal: Knowledge of risk factors/behavior modification Description: Knowledge of risk factors/behavior modification for fall/injury prevention Outcome: Progressing * Nursing Notes - Ligia Zabala RN - 02/28/2025 8:11 PM EDT 02/28/251918 Tx Assessment/Safety (Pre/Post) Blood Liters Processed [...] Post-Hemodialysis Assessment Report given to abraham lundberg * Plan of Care - Ligia Zabala RN - 02/28/2025 4:45 PM EDT During [facility] Dialysis Treatment on 02/28/2025 [...] edema. During Christian Amador's Dialysis Treatment on 02/28/2025 the following interventions to Protect/Monitor Dialysis Line/Access Site were completed: Inspect and monitor dialysis line and access site. Change dressing and caps per protocol Educate patient on home care, and reportable symptoms * Nursing Notes - Stella Swenson RN - 02/28/2025 3:14 PM EDT Pt PTT is due but pt is at HD. Told Ligia DWYER RN about the PTT and he said he will draw it. * Plan of Care - Perla Greer RN - 02/28/2025 5:56 AM EDT Problem: Adult Inpatient Plan of Care Goal: Plan of Care Review Outcome: Progressing Goal: Absence of Hospital-Acquired Illness or Injury Outcome: Progressing Goal: Optimal Comfort and Wellbeing Outcome: Progressing Problem: Hemodialysis Goal: Safe, Effective Therapy Delivery Outcome: Progressing Goal: Effective Tissue Perfusion Outcome: Progressing Goal: Absence of Infection Signs and Symptoms Outcome: Progressing Problem: Breathing Pattern Ineffective Goal: Effective Breathing Pattern Outcome: Progressing * Nursing Notes - Jordi Rodas RN - 02/26/2025 10:32 AM EDT 02/26/25 1032 Tx Assessment/Safety (Pre/Post) Blood Liters [...] Additional Restrictions no Changes In Status no [place] Procedure Orders Written no Sending RN/Tech Name Jordi POWERS Returning to Patient Care Unit Transport yes LOC/Significant Event Significant Event iHD completed Post-Hemodialysis Assessment Report given to Primary RN * Plan of Care - Jordi Rodas RN - 02/26/2025 7:32 AM EDT Problem: Hemodialysis Goal: Safe, Effective Therapy Delivery [...] treatment During [facility] Dialysis Treatment on 02/26/2025 the following interventions to Protect/Monitor Dialysis Line/Access Site were completed: Inspect and monitor dialysis line and access site. Change dressing and caps per protocol Educate patient on home care, and reportable symptoms * Plan of Care - Nini Keane RN - 02/25/2025 9:54 PM EDT Problem: Adult Inpatient Plan of Care Goal: Absence of Hospital-Acquired Illness or Injury Outcome: Progressing Goal: Optimal Comfort and Wellbeing Outcome: Progressing Problem: Breathing Pattern Ineffective Goal: Effective Breathing Pattern Outcome: Progressing * Nursing Notes - Stella Swenson RN - 02/25/2025 7:20 PM EDT A dual assessment of skin condition was performed by this credit underwriter and Bonnie Layton RN> Skin Assessment: Skin not within defined limits. - Photo taken and uploaded into notes in [facility]: Yes Fabian Score: 19 LDA Added:No Stella Swenson RN * Nursing Notes - Jordi Rodas RN - 02/25/2025 10:57 AM EDT 02/25/25 1057 Tx Assessment/Safety (Pre/Post) Blood Liters [...] Additional Restrictions no Changes In Status no [place] Procedure Orders Written no Sending RN/Tech Name Jordi POWERS Returning to Patient Care Unit Transport yes LOC/Significant Event Significant Event iHD completed Post-Hemodialysis Assessment Report given to Primary RN * Plan of Care - Jordi Rodas RN - 02/25/2025 7:56 AM EDT Problem: Hemodialysis Goal: Safe, Effective Therapy Delivery [...] treatment During [facility] Dialysis Treatment on 02/25/2025 the following interventions to Protect/Monitor Dialysis Line/Access Site were completed: Inspect and monitor dialysis line and access site. Change dressing and caps per protocol Educate patient on home care, and reportable symptoms * Plan of Care - Enrico Kyle RN - 02/24/2025 10:09 PM EDT Problem: Adult Inpatient Plan of Care Goal: Plan of Care Review Outcome: Progressing Goal: Patient-Specific Goal (Individualized) Outcome: Progressing Goal: Absence of Hospital-Acquired Illness or Injury Outcome: Progressing Problem: Hemodialysis Goal: Safe, Effective Therapy Delivery Outcome: Progressing Goal: Effective Tissue Perfusion Outcome: Progressing Goal: Absence of Infection Signs and Symptoms Outcome: Progressing Problem: Breathing Pattern Ineffective Goal: Effective Breathing Pattern Outcome: Progressing * Nursing Notes - Thea Villa RN - 02/23/2025 5:47 PM EDT 02/23/25 1730 Tx Assessment/Safety (Pre/Post) Blood Liters Processed (BLP) 76.4 Transport Modality bed Dialyzer Clearance moderate Tolerance to Dialysis Procedure Well with 2L UF off. Profile A/B throughout tx. Treatment Assessment Blood Flow Rate (BFR) mL/min 400 Dialysate Flow Rate (DFR) mL/min 800 mL/min Arterial Pressure (AP) mmHg -230 Venous Pressure (TISSUE TECHNICIAN) mmHg 160 Transmembrane Pressure (TMP) mmHg 30 [...] Additional Restrictions no Changes In Status no [place] Procedure Orders Written no Sending RN/Tech Name Juju GIO Phone [phone] Returning to Patient Care Unit Transport yes Cognitive/Neuro/Behavioral WDL Cognitive/Neuro/Behavioral WDL WDL Safety Patient Safety WDL ex;safety factors Safety Management Safety Promotion/Fall Prevention safety round/check completed;fall prevention program maintained LOC/Significant Event RASS (Crain Agitation-Sedation Scale) 0-->alert and calm Significant Event HD completed Post-Hemodialysis Assessment Report given to Raissa RN * Plan of Care - Thea Villa RN - 02/23/2025 2:40 PM EDT During Christian Sequeiras Dialysis Treatment on 02/23/2025 [...] treatment During Christian Amador's Dialysis Treatment on 02/23/2025 the following interventions to Protect/Monitor Dialysis Line/Access Site were completed: Inspect and monitor dialysis line and access site. Change dressing and caps per protocol Educate patient on home care, and reportable symptoms * Nursing Notes - Nayeli Holloway RN - 02/23/2025 2:04 PM EDT 02/23/25 1402 Outlier Review Reviewing for: Outlier Meeting Medical Necessity: Yes Medical Necessity Summary: heparin gtt until INR therapeutic. Lovenox bridge not appropriate due todialysis patient and mechanical mitral valve. Barriers: IV Drug Needs;Standard Treatment/Therapy Barrier(s) Comments: no discharge barriers. INR 1.1 today - goal 2.5-3.5 Intervention: No intervention needed;Discussion with team Ever is established w/a local coumadin clinic - will follow up there once INR is therapeutic. Juju Su RN Clinical Legal Office Administrator Please note that I am a float career services representative and may not cover the same service every day. Please call the main Care Management office at [phone] for up-to-date coverage. * Plan of Care - Nellie Murphy RN - 02/22/2025 9:35 AM EDT Problem: Adult Inpatient Plan of Care Goal: [...] Ineffective Goal: Effective Breathing Pattern Outcome: Progressing * Plan of Care - Rik Bird RN - 02/22/2025 1:24 AM EDT Problem: Adult Inpatient Plan of Care Goal: Plan of Care Review Outcome: Progressing Goal: Patient-Specific Goal (Individualized) Outcome: Progressing Goal: Absence of Hospital-Acquired Illness or Injury Outcome: Progressing Goal: Optimal Comfort and Wellbeing Outcome: Progressing Goal: Readiness for Transition of Care Outcome: Progressing * Nursing Notes - Lorene Méndez RN - 02/21/2025 6:42 PM EDT HD Treatment Note iHD treatment complete, blood [...] tx. Report given to Farrah Anthony RN, [phone]. HD RN remained at bedside for duration of treatment. Pt stable upon departure from Dialysis Unit. 02/21/25 1830 Machine Checks Station/Room Number [id number] Tx Assessment/Safety (Pre/Post) Blood Liters Processed (BLP) 77.3 Transport Modality bed Dialyzer Clearance moderate Tolerance to Dialysis Procedure well Treatment Assessment Blood Flow Rate (BFR) mL/min 400 Dialysate Flow Rate (DFR) mL/min 800 mL/min Arterial Pressure (AP) mmHg -190 Venous Pressure (TISSUE TECHNICIAN) mmHg 170 Transmembrane Pressure (TMP) mmHg 10 [...] Additional Restrictions no Changes In Status no [place] Procedure Orders Written no Sending RN/Felix Name GIO Paulson Phone [phone] Returning to Patient Care Unit Transport yes [...] Assessment Report given to Farrah Anthony RN, [phone] * Plan of Care - Lorene Méndez RN - 02/21/2025 4:44 PM EDT Problem: Hemodialysis Goal: Safe, Effective Therapy Delivery Outcome: Progressing Goal: Effective Tissue Perfusion Outcome: Progressing Goal: Absence of Infection Signs and Symptoms Outcome: Progressing iHD tx ordered x 3.5 hrs. Plan to remove 2 kg as pt tolerates. Last iHD tx was 02/19/2025. Pt on 3Kbath as ordered, K+ of 3.7 on 02/21/2025. [...] monitor patient throughout for tolerance to treatment * Plan of Care - Nalini Elizabeth RN - 02/20/2025 9:55 AM EDT Problem: Adult Inpatient Plan of Care Goal: Optimal Comfort and Wellbeing Outcome: Progressing Goal: Readiness for Transition of Care Outcome: Progressing Problem: Hemodialysis Goal: Absence of Infection Signs and Symptoms Outcome: Progressing * Nursing Notes - Lolis Manriquez RN - 02/19/2025 7:44 PM EDT 1820: PTT came back at 95.8. Physician okay'd Heparin gtt. To continue to run at the current rate. * Nursing Notes - Alonso Cohen RN - 02/19/2025 6:28 PM EDT HD Treatment Note Access used for this [...] Bath Used: 3 K / 2.5 Ca 02/19/251827 Tx Assessment/Safety (Pre/Post) Less Than 30 Days Hepatitis B Surface Antigen Status Negative Hepatitis B Surface Antigen Resulted From [facility] lab Date Hepatitis B Surface Antigen Status [...] and calm Significant Event HD treatment complete; * Plan of Care - Alonso Cohen RN - 02/19/2025 2:57 PM EDT HD Treatment Plan of Care Plan for [...] monitor patient throughout for tolerance to treatment * Plan of Care - Nalini Elizabeth RN - 02/19/2025 10:43 AM EDT Problem: Adult Inpatient Plan of Care Goal: Optimal Comfort and Wellbeing Outcome: Progressing Goal: Readiness for Transition of Care Outcome: Progressing Problem: Hemodialysis Goal: Effective Tissue Perfusion Outcome: Progressing Goal: Absence of Infection Signs and Symptoms Outcome: Progressing * Plan of Care - Casey Natarajan RN - 02/18/2025 4:09 PM EDT Problem: Adult Inpatient Plan of Care Goal: Plan of Care Review Outcome: Progressing * Plan of Care - Nalini Elizabeth RN - 02/18/2025 11:48 AM EDT Problem: Adult Inpatient Plan of Care Goal: Optimal Comfort and Wellbeing Outcome: Progressing Goal: Readiness for Transition of Care Outcome: Progressing Problem: Breathing Pattern Ineffective Goal: Effective Breathing Pattern Outcome: Progressing Problem: Hemodialysis Goal: Effective Tissue Perfusion Outcome: Progressing Goal: Absence of Infection Signs and Symptoms Outcome: Progressing * Nursing Notes - Abigail Hollingsworth RN - 02/17/2025 8:28 PM EDT 02/17/251939 Tx Assessment/Safety (Pre/Post) Blood Liters Processed [...] Device room air Treatment Record Stop Time 1940 Initiation prime given (specify mL) Fluid Volume Removal 2300 Total Fluid Given 300 Returning to Patient Care Unit Transport Testing Complete yes NPO no Additional Restrictions none Changes In Status no [place] Procedure Orders Written no Sending RN/Tech Name Abigail POWERS Phone [phone] Returning to Patient Care Unit Transport yes Cognitive/Neuro/Behavioral WDL Cognitive/Neuro/Behavioral WDL WDL Motor Response General General return to WDL General Pain Documentation (Adult, OB, Peds) Presence of Pain denies pain/discomfort Presence of Pain Score (Auto-calculated) 0 Sleep/Rest/Relaxation (Adult,Pediatric,OB) Sleep/Rest/Relaxation awake LOC/Significant Event RASS (Crain Agitation-Sedation Scale) 0-->alert and calm Significant Event Off circ, conversant Post-Hemodialysis Assessment Report given to Lara RN * Plan of Care - Abigail Hollingsworth RN - 02/17/2025 5:12 PM EDT Problem: Hemodialysis Goal: Safe, Effective Therapy Delivery Outcome: Progressing Goal: Effective Tissue Perfusion Outcome: Progressing Goal: Absence of Infection Signs and Symptoms Outcome: Progressing During [facility] Sequeiras Dialysis Treatment on 02/17/2025 [...] monitor patient throughout for tolerance to treatment * Nursing Notes - Nalini Elizabeth RN - 02/17/2025 1:45 PM EDT Requested that pt do walk of life with staff. Pt refused saying that he was to weak to walk today. Since pt is not leaving today will attempt to do walk of like again tomorrow when his is here. * Plan of Care - Tia Billingsley MD - 02/16/2025 9:29 PM EDT Brief GI/Hepatology update Christian Amador is a 74 y.o. 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 Colonoscopy 02/16/25 Impression: - Moderate [...] any questions. Tia Billingsley MD Fellow, Gastroenterology * Nursing Notes - Ivan Mcmahon RN - 02/16/2025 5:25 PM EDT 02/16/25 1725 Tx Assessment/Safety (Pre/Post) Post Procedure [...] Additional Restrictions none Changes In Status no [place] Procedure Orders Written no Sending RN/Tech Name Ivan POWERS Phone [phone] Returning to Patient Care Unit Transport yes LOC/Significant Event RASS (Crain Agitation-Sedation Scale) 0-->alert and calm Significant Event HD tx completed. Post-Hemodialysis Assessment Report given to To Nalini POWERS 3 hour HD tx completed. Blood returned. NET UF=2kgs. UUT=905zj/min. No medications administered. Stable tx with soft bp, systolic in the 90's most of session. Alert and oriented X4. * Plan of Care - Ivan Mcmahon RN - 02/16/2025 2:57 PM EDT Planning a 3 hour dialysis session today [...] and resulting effect. Assess presence/location of edema. * Plan of Care - Nalini Elizabeth RN - 02/16/2025 11:07 AM EDT Problem: Adult Inpatient Plan of Care Goal: Optimal Comfort and Wellbeing Outcome: Progressing Goal: Readiness for Transition of Care Outcome: Progressing Problem: Hemodialysis Goal: Effective Tissue Perfusion Outcome: Progressing Goal: Absence of Infection Signs and Symptoms Outcome: Progressing Problem: Breathing Pattern Ineffective Goal: Effective Breathing Pattern Outcome: Progressing * Nursing Notes - Juan Alberto Fernandez RN - 02/16/2025 10:25 AM EDT Per Farrah with [facility] lab ([phone]) who states blood cultures drawn01/2725 have no growth. Expected to finalize tomorrow. Notified hospitalist Dr Rizo. Siobhan Fern[place] [phone] * Nursing Notes - Nalini Duke RN - 02/16/2025 10:05 AM EDT Report called to Nalini Webber updated on patient status post procedure. * Nursing Notes - Beckie Mota RN - 02/16/2025 3:21 AM EDT MD Serrano notified that patients BM at 0300 was yellow liquid with some particles and picture was uploaded into media. also notified that patient had finished initial 4000mL of colonoscopy prep. This RN asked if patient needed to receive PRN Golytely dose. MD declined PRN dose stating BM did not have any stool in it and it would be fine. * Plan of Care - Beckie Mota RN - 02/16/2025 12:24 AM EDT Problem: Adult Inpatient Plan of Care Goal: Plan of Care Review Outcome: Progressing Goal: Patient-Specific Goal (Individualized) Outcome: Progressing Goal: Absence of Hospital-Acquired Illness or Injury Outcome: Progressing Goal: Optimal Comfort and Wellbeing Outcome: Progressing Goal: Readiness for Transition of Care Outcome: Progressing * Plan of Care - Nini Keane RN - 02/15/2025 12:42 AM EDT Problem: Adult Inpatient Plan of Care Goal: Optimal Comfort and Wellbeing Outcome: Progressing Problem: Breathing Pattern Ineffective Goal: Effective Breathing Pattern Outcome: Progressing * Significant Event - Linn Serrano MD - 02/14/2025 7:37 PM EDT RPP + for human metapneumo virus will place required contact and droplet precautions. Linn Serrano MD Overnight cross covering physician [phone] * Plan of Care - Ekta Rasmussen RN - 02/14/2025 11:13 AM EDT Problem: Breathing Pattern Ineffective Goal: Effective Breathing Pattern Outcome: Progressing Intervention: Promote Improved Breathing Pattern Flowsheets (Taken 02/14/2025 1112) Head of Bed (HOB) Positioning: HOB at 30-45 degrees * Plan of Care - Kenrick Lopez MD - 02/14/2025 9:49 AM EDT Thoracic Surgery Updated Plan of Care Thoracic [...] Please identify the Thoracic Surgery consult resident carton waxing machine operator via [employer]. The credit underwriter of this note may not be the resident carton waxing machine operator or available for immediate responses. Thank you for allowing us to participate in the excellent care of this patient. Kenrick Lopez MD Cardiothoracic Surgery PGY-2 #[id number] * Plan of Care - Linn Serrano MD - 02/14/2025 6:58 AM EDT Overnight Call: Previous Progress Notes and/or H&P Reviewed. Informed that pt with "pt has twitching of face states a little more since HD done but his "body was twitching then and not so much now. we are getting ready to draw PTT (heparin gtt) and am labs do you want anything added? " - advised RN to get chem 7 earlier and added calcium and mag. No further reports of twitching. Linn Serrano MD Overnight cross covering physician [phone] * Plan of Care - Nini Keane RN - 02/14/2025 2:49 AM EDT Problem: Adult Inpatient Plan of Care Goal: Absence of Hospital-Acquired Illness or Injury Outcome: Progressing Goal: Optimal Comfort and Wellbeing Outcome: Progressing * Nursing Notes - Ivan Mcmahon RN - 02/13/2025 6:40 PM EDT 02/13/25 1840 Tx Assessment/Safety (Pre/Post) Less Than 30 Days Hepatitis B Surface Antigen Status Negative Hepatitis B Surface Antigen Resulted From [facility] lab Date Hepatitis B Surface Antigen Status [...] Additional Restrictions none Changes In Status no [place] Procedure Orders Written no Sending RN/Tech Name Ivan POWERS Phone [phone] Returning to Patient Care Unit Transport yes LOC/Significant Event RASS (Crain Agitation-Sedation Scale) 0-->alert and calm Significant Event HD tx completed. Post-Hemodialysis Assessment Report given to Report to Adiel POWERS 3 hour HD tx completed. Blood returned. NET UF=1kg per pt request. States "usually it's 0.5-1kg". KGM=976cl/min. Coumadin 2mg and Heparin drip started at 12units/kg/hr. Stable tx. * Plan of Care - Ivan Mcmahon RN - 02/13/2025 4:39 PM EDT Planning a 3 hour HD tx with [...] and resulting effect. Assess presence/location of edema. * Plan of Care - Shana Lew MD - 02/13/2025 3:02 PM EDT Interventional Plan of Care Note After Pulmonary evaluated, it was determined that the effusion was chronic and does not require chest tube placement. Will cancel chest tube placement. Please reach out to IR if this changes. Shana Lew MD Diagnostic Radiology PGY3 R2 * Nursing Notes - Adiel Olvera RN - 02/13/2025 12:33 PM EDT Images from the original note were [...] Added:Yes [facility]vera [facility] History of Present illness Narrative* Mel Brooks RN - 03/06/2025 12:36 PM EDT Care Management Discharge Note Selected Continued Care - Admitted Since 02/13/2025 Dialysis/Infusion Coordination complete. Service Provider Services Address Phone Fax Patient Preferred [facility] D[facility] [address] [facility] [address] [phone] -- Internal Comment last updated by ELAYNE Vo 2025 1307 Home HD Confirmed with patients at bedside that patient checks his INR every Sunday and follows up his Copy Center Operator with results. to transport patient home. AVS updated. Patient medically stable for discharge per physician/medical team. Patient/Stock Receiver remain in agreement with the discharge plan. Mel MARIE, RN Clinical Legal Office Administrator [address] [place] [address] Can be reached by phone at [phone] or by Secure Chat * Garcia Bay MD, PhD - 03/05/2025 5:07 PM EDT Images from the original note were [...] forearm, posterior, right 22 gauge 02/14/25 1840 --18 Wound Skin Tear 02/03/23 1515 Midline;Posterior Buttocks 02/03/23 1515 Buttocks 761 Wound Surgical 02/13/23 0820 incision Left Back 02/13/23 0820 Back 751 PHYSICAL EXAM: General: Laying in bed, no apparent distress. CV: S1 and S2 normal, no murmurs, clicks, gallops or rubs. Regular rate and rhythm. Pulm: Chest is clear, no wheezing or rales. Normal symmetric air entry throughout both lung chavez.No chest wall deformities or tenderness. Trunk/Abd: The abdomen is soft without tenderness, guarding, mass, rebound or organomegaly. Bowel sounds are normal. Ext& Skin: No edema, No rash. DIAGNOSTIC RESULTS/PROCEDURES: Labs: WBC/Hgb/Hct/Plts: 10.65/10.6/34.2/303 (03/05 416) Bun/Creat/Cl/CO2/Glucose: 26/5.35/100/25/95 (03/05 416) Na/K+/Phos/Mg/Ca: 139/5.1/4.9/2.0/9.4 (03/05 416) Radiology/Images: Reviewed TTE: Mildly dilated left ventricle with mild increase in septal wall wall thickness (max 1.2 cm). Normalsystolic function, LVEF 55-60%, with abnormal septal motion. [...] DI Vmax 0.27, DI VTI 0.33) with mildregurgitation. Mild to moderate tricuspid regurgitation with moderate [...] questions. Garcia Bay MD, PhD [facility] * Hoda Moore MD - 03/05/2025 1:52 PM EDT Hospital Medicine Progress Note Patient: Christian Amador, [...] regimen of 2mg M-F, 1mg on Sat andSun (12mg total weekly dose, started about 1 [...] clinical status (no fevers, normal WBC), but nephremains concerned about site. - ID consulted for [...] 26/5.35/100/25/95 (03/05 416) Ptt/Pt/Inr: 86.9/29.8/2.8 (03/05 416) * Mel Aldana MD - 03/04/2025 11:49 AM EDT Hospital Medicine Progress Note Patient: Christian Amador, [...] regimen of 2mg M-F, 1mg on Sat andSun (12mg total weekly dose). Stable dose regimen [...] clinical status (no fevers, normal WBC), but nephremains concerned about site. - ID consulted for [...] Data Review Ptt/Pt/Inr: 113.6/26.1/2.4 (03/04 0322-03/04 1040) * ELAYNE Vo - 03/03/2025 2:28 PM EDT Care Management Progress Note Plan of Care- Treatment Updates: Working on therapeutic INR, must be 2.5 prior to discharge. INR was 2.1. Patientwith positive cultures, ID consulted, awaiting final recs. Discharge updates: Patient to discharge home with spouse, spouse to provide transportation. Patienthas home HD, patient to follow with home hemo RN at discharge. Barriers: medical readiness (therapeutic INR, final ID plan) Current Referrals and Status Home Dialysis info Selected Continued Care - Admitted Since 02/13/2025 Dialysis/Infusion Service Provider Services Address Phone Fax Patient Preferred [facility] D[facility] [address] [address] [phone] -- Internal Comment last updated by ELAYNE Vo 2025 1307 Home HD ELAYNE Guzman Retort Furnace Helper [phone] Available on secure chat. * Laney Crowe - 03/03/2025 1:26 PM EDT NUTRITION FOLLOW-UP Pt with identified nutrition risk factors: Current admit and PMHx Nutrition Plan of Care: 1. Continue current diet order. 2. Pt declined oral nutrition supplements. 3. Monitor for significant weight changes. 4. Monitor GI and skin integrity. 5. Monitor and encourage po intakes with goal of average po being 75%. 6. Dredge Pipe Operator to follow. Met with patient today at bedside wearing [...] lb 15.1 oz) Height: 170.2 cm (5' 7.01") no significant weight changes in 1 month [...] oral supplement. Pt states they don't have anynausea or vomiting. Laney Crowe [facility] data technician student Cosigned by PAMELA Riggins at 03/03/2025 2:33 PM EDT Associated attestation - Tamiko Boss DT - 03/03/2025 2:33 PM EDT I have reviewed/corrected the Dredge Pipe Operator student note and agree with the nutrition plan of care. PAMELA Riggins Pager [phone] * Mel Aldana MD - 03/03/2025 11:54 AM EDT Hospital Medicine Progress Note Patient: Christian Amador, [...] regimen of 2mg M-F, 1mg on Sat andSun (12mg total weekly dose). Stable dose regimen [...] clinical status (no fevers, normal WBC), but nephremains concerned about site. - ID consulted for [...] (03/03 517) Ptt/Pt/Inr: 102.3/23.0/2.1 (03/02 2226-03/03 517) * ROSE Sinclair - 03/02/2025 3:06 PM EDT ESRD Note: Diagnosis: ESRD on dialysis currently hospitalized for workup of hematochezia. Remains hospitalizedto get his INR therapeutic Subjective: Feels ok [...] (Axillary) Resp 23 Ht 1.702 m (5' 7.01") Wt 78.9 kg (173 lb 15.1 oz) [...] Daily early evening ROSE Browne, MS Attending Edge Bander Operator * ELAYNE Vo - 03/02/2025 11:52 AM EDT 03/02/25 1151 Outlier Review Reviewing for: Outlier Meeting Medical Necessity: Yes Medical Necessity Summary: Patient's INR must be 2.5 prior to discharge, today 03/02 INR 1.9 Barriers: Standard Treatment/Therapy Intervention: No intervention needed Action by Other Stakeholder SW;Legal Office AdministratorProfiler Hand Comments: CM/SW continue to follow Escalated to: None Required Sarah ANGULO, ELAYNE Retort Furnace Helper [phone] Available on secure chat. * Mel Aldana MD - 03/02/2025 10:35 AM EDT Hospital Medicine Progress Note Patient: Christian Amador, [...] regimen of 2mg M-F, 1mg on Sat andSun (12mg total weekly dose). Stable dose regimen [...] cognition Data Review Ptt/Pt/Inr: 53.0/21.4/1.9 (03/02 0325-03/02 08) * Mel Aldana MD - 03/01/2025 10:36 AM EDT Hospital Medicine Progress Note Patient: Christian Amador, [...] regimen of 2mg M-F, 1mg on Sat andSun (12mg total weekly dose). Stable dose regimen [...] affect and cognition Data Review Ptt/Pt/Inr: 57.2/17.9/1.5 (04/12 2221-03/01 0539) * Mel Aldana MD - 02/28/2025 11:[address] [facility] Medicine Progress Note Patient: Christian Amador, : 1950, Impression / Plan Christian Amador is a 74 y.o. 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 He presented to OSH [...] regimen of 2mg M-F, 1mg on Sat andSun (12mg total weekly dose). Stable dose regimen [...] 109) Na/K+/Phos/Mg/Ca: 140/4.5/4.7/1.9/8.9 (02/28 109) Bun/Creat/Cl/CO2/Glucose: 36/6.59/101/25/114 (04/12 0109) Ptt/Pt/Inr: 101.1/17.8/1.5 (02/28 0109-02/28 0759) * ELAYNE Vo - 2025 1:08 PM EDT Care Management Progress Note Plan of Care- Treatment Updates: Working on therapeutic INR, must be 2.5 prior to discharge. INR today 02/27 was 1.5 Discharge updates: Patient to discharge home with spouse, spouse to provide transportation. Patienthas home HD, patient to follow with home hemo RN at discharge. Current Referrals and Status Home Dialysis info Selected Continued Care - Admitted Since 02/13/2025 Dialysis/Infusion Service Provider Services Address Phone Fax Patient Preferred [facility] D[facility] [address], [facility] [address] [phone] -- Internal Comment last updated by ELAYNE Vo 2025 1307 Home HD Sarah ANGULO, ADJUNCT INSTRUCTOR Retort Furnace Helper [phone] Available on secure chat. * Mel Aldana MD - 2025 11:33 AM EDT Hospital Medicine Progress Note Patient: Christian Amador, [...] regimen of 2mg M-F, 1mg on Sat andSun (12mg total weekly dose). Stable dose regimen [...] Data Review Ptt/Pt/Inr: 97.6/17.6/1.5 (02/27 0205-02/27 0935) * Mel Aldana MD - 02/26/2025 11:49 AM EDT Hospital Medicine Progress Note Patient: Christian Amador, [...] regimen of 2mg M-F, 1mg on Sat andSun (12mg total weekly dose). Stable dose regimen [...] affect and cognition Data Review WBC/Hgb/Hct/Plts: 5.90/8.5/28.0/175 (02/25 2345) Na/K+/Phos/Mg/Ca: 137/4.4/4.3/1.8/8.7 (02/25 2345) Bun/Creat/Cl/CO2/Glucose: 22/4.82/98/26/91 (02/25 2345) Ptt/Pt/Inr: 93.8/16.9/1.4 (02/25 2345) * ROSE Hill - 02/26/2025 9:28 AM EDT ESRD Note: Diagnosis: ESRD on dialysis currently hospitalized for workup of hematochezia. And pleural effusionRemains hospitalized to get his INR therapeutic Subjective: [...] Resp (!) 31 Ht 1.702 m (5' 7.01") Wt 78.9 kg (173 lb 15.1 oz) [...] per day on Sunday MARIA EUGENIA LANDRY M.D,FASN Attending Nephrology * ROSE Hill - 02/25/2025 10:24 AM EDT ESRD Note: Diagnosis: ESRD on dialysis currently hospitalized for workup of hematochezia. And pleural effusionRemains hospitalized to get his INR therapeutic Subjective: [...] Resp (!) 32 Ht 1.702 m (5' 7.01") Wt 78.9 kg (173 lb 15.1 oz) [...] evening MARIA EUGENIA LANDRY M.D,ALEJANDRO Attending Nephrology * Hien Anderson MD - 02/25/2025 8:33 AM EDT Hospital Medicine Progress Note Patient: Christian Amador, [...] regimen of 2mg M-F, 1mg on Sat andSun (12mg total weekly dose). Stable dose regimen [...] be determined by GI pending path results andbased on clinical status at that time (needs [...] status is Full Code Hien Anderson MD [facility] p3921 Interval History / Subjective [...] cognition Data Review Ptt/Pt/Inr: 79.7/15.8/1.3 (02/24 2307-02/25 113) * ROSE Hill - 02/24/2025 3:42 PM EDT Follow up Note: Diagnosis: ESRD on dialysis [...] (Oral) Resp 16 Ht 1.702 m (5' 7.01") Wt 78.9 kg (173 lb 15.1 oz) [...] evening MARIA EUGENIA LANDRY M.D,ALEJANDRO Attending Nephrology * Hien Anderson MD - 02/24/2025 8:41 AM EDT Hospital Medicine Progress Note Patient: Christian Amador, [...] regimen of 2mg M-F, 1mg on Sat andSun (12mg total weekly dose) - heparin gtt to bridge until therapeutic on home warfarin (high risk medication requiring monitoring for toxicity) - pharmacy consulted for assistance with warfarin management and dose adjustments. Will give 8mg today 4/8 as his INR has not increased after [...] be determined by GI pending path results andbased on clinical status at that time (needs [...] status is Full Code Hien Anderson MD [facility] p3921 Interval History / Subjective [...] (02/24 0002) Ptt/Pt/Inr: 75.1/15.5/1.2 (02/24 0433-02/24 1049) * ROSE Sinclair - 02/23/2025 3:36 PM EDT ESRD Note: Diagnosis: ESRD on dialysis currently hospitalized for workup of hematochezia. Remains hospitalizedto get his INR therapeutic Subjective: Feels ok [...] Resp (!) 26 Ht 1.702 m (5' 7.01") Wt 78.9 kg (173 lb 15.1 oz) [...] day on Sunday ROSE Browne, MS Attending Edge Bander Operator * Alonzo Renteria, DT - 02/23/2025 3:14 PM EDT NUTRITION RISK SCREENING NOTE Pt with identified nutrition risk factors: Current admit, PMHx, and Low Fabian score Nutrition Plan of Care: 1. Continue current diet order. 2. No oral supplements warranted at this time. 3. Monitor for significant weight changes. 4. Monitor GI and skin integrity. 5. Monitor and encourage po intakes with goal of average po being 75%. 6. Dredge Pipe Operator to follow. Christian Amador is a 74 y.o. male admitted with a PMH of ESRD on home dialysis, atrial fibrillation s/p AVN ablation and PPM, MRSA bacteremia on life long suppressive antibiotics, fungemia on chronic fluconazole, mechanical mitral valve, and MADRID cirrhosis of liver, presented to OSH with fatigue,transferred to [facility] for pleural fluid collection that [...] and/or swallowing Food Allergies reviewed:None Cultural or Baptist Restrictions/Preferences: None Pt reports weight loss of [...] past three months. Follow for tolerance to POand weight changes. Current Diet Order DIET PHOSPHORUS AND POTASSIUM RESTRICTED (RENAL) Anthropometrics Height: 170.2 cm (5' 7.01") Admit wt: 174 lb IBW: 148 lb [...] 01/15/23 79.4 kg (175 lb) PAMELA Greenberg Pager:[phone] * Hien Anderson MD - 02/23/2025 8:55 AM EDT Hospital Medicine Progress Note Patient: Christian Amador, [...] regimen of 2mg M-F, 1mg on Sat andSun (12mg total weekly dose) - heparin gtt [...] be determined by GI pending path results andbased on clinical status at that time (needs [...] status is Full Code Hien Anderson MD [facility] p3921 Interval History / Subjective [...] Data Review Ptt/Pt/Inr: 41.8/14.5/1.1 (02/23 0417-02/23 0548) * Hien Anderson MD - 02/22/2025 8:[address] [facility] Progress Note Patient: Christian Amador, [...] regimen of 2mg M-F, 1mg on Sat andSun (12mg total weekly dose) - heparin gtt [...] be determined by GI pending path results andbased on clinical status at that time (needs [...] status is Full Code Hien Anderson MD [facility] p3921 Interval History / Subjective [...] affect and cognition Data Review Ptt/Pt/Inr: 74.0/14.2/1.1 (02/22 0132-02/22 08) * Kaveh Perez MD - 02/21/2025 12:36 PM EDT ESRD Note: Diagnosis: ESRD on dialysis currently [...] (Oral) Resp 22 Ht 1.702 m (5' 7.01") Wt 78.9 kg (173 lb 15.1 oz) [...] Sunday Kaveh Perez MD Division of Nephrology * Hien Anderson MD - 02/21/2025 9:04 AM EDT Hospital Medicine Progress Note Patient: Christian Amador, [...] regimen of 2mg M-F, 1mg on Sat andSun (12mg total weekly dose) - heparin gtt [...] be determined by GI pending path results andbased on clinical status at that time (needs [...] status is Full Code Hien Anderson MD [facility] p3921 Interval History / Subjective [...] (02/21 319) Ptt/Pt/Inr: 93.9/14.8/1.2 (02/21 319-02/21 1014) * ELAYNE Vo - 02/20/2025 3:30 PM EDT Care Management Progress Note Plan of Care- Treatment Updates: Currently working on heparin drip bridge to home warfarin. INR must be 2.5-3.5 to be therapeutic. Patient's INR 1.1 today 02/20. Discharge updates: Patient to discharge home with spouse. Patient to resume home HD through [facility]. Spouse to provide transportation. Barriers: Medical readiness (therapeutic INR) Sarah ANGULO, ADJUNCT INSTRUCTOR Retort Furnace Helper [phone] Available on secure chat. * Hien Anderson MD - 02/20/2025 10:25 AM EDT Hospital Medicine Progress Note Patient: Christian Amador, [...] regimen of 2mg M-F, 1mg on Sat andSun (12mg total weekly dose) - heparin gtt [...] be determined by GI pending path results andbased on clinical status at that time (needs [...] (02/20 303) Ptt/Pt/Inr: 88.2/14.5/1.1 (02/20 030-02/20 1009) * Sue Hollingsworth - 02/20/2025 9:33 AM EDT Pt is currently a Home Hemo pt at [facility] [place] . Pt will need to follow up with their Home Hemo RN at discharge. * Hien Anderson MD - 02/19/2025 4:56 PM EDT Hospital Medicine Progress Note Patient: Christian Amador, [...] regimen of 2mg M-F, 1mg on Sat andSun. - heparin gtt to bridge until therapeutic [...] be determined by GI pending path results andbased on clinical status at that time (needs [...] status is Full Code Hien Anderson MD [facility] p3921 Interval History / Subjective [...] 27/7.51/99/25/93 (02/19 423) Ptt/Pt/Inr: 93.3/15.4/1.2 (02/19 423) * ROSE Sinclair - 02/19/2025 2:40 PM EDT ESRD Note: Diagnosis: ESRD on dialysis currently [...] (Oral) Resp 16 Ht 1.702 m (5' 7.01") Wt 78.9 kg (173 lb 15.1 oz) [...] day on Sunday ROSE Browne, MS Attending Edge Bander Operator * Key Rizo MD - 02/18/2025 1:[address] [facility] Progress Note Patient: Christian Amador, [...] x2 weeks and had chest tube placed fordrainage. Although he has cough, he has not [...] regimen of 2mg M-F, 1mg on Sat andSun. - Resuming warfarin today, monitor INR - [...] (02/18 537) Ptt/Pt/Inr: 80.4/16.7/1.4 (02/18 0559-02/18 0932) * Kelby Elizondo APRN-SURGICAL SALES REPRESENTATIVE - 02/17/2025 6:12 PM EDT Dialysis Note: Patient seen on hemodialysis. Chart [...] Qb 400 ml/min. Thank you, Kelby Elizondo APRN-[facility] Nephrology Pager #[phone] Physical Examination: Constitutional: no acute distress, appears [...] Component Value Date PTH 283.6 (H) 02/04/2023 [id number] 40.3 09/03/2021 CALCIUM 8.0 (L) 02/14/2025 ICA 4.6 09/15/2021 PHOSPHORUS 2.9 02/17/2025 MAGNESIUM 1.7 02/17/2025 Lab Results Component Value Date WBC 8.48 02/17/2025 HGB 7.6 (L) 02/17/2025 HCT 24.0 (L) 02/17/2025 PLATELET 170 02/17/2025 MCV 108.6 (H) 02/17/2025 Lab Results Component Value Date PH 7.346 09/16/2021 PCO2 43.7 09/16/2021 PO2 51.4 09/16/2021 HCO3 23.4 09/16/2021 LACT 1.5 02/04/2023 * Key Rizo MD - 02/17/2025 2:[address] [facility] Progress Note Patient: Christian Amador, [...] x2 weeks and had chest tube placed fordrainage. Although he has cough, he has not [...] regimen of 2mg M-F, 1mg on Sat andSun. - Resuming warfarin today, monitor INR - [...] 17/5.28/98/27/99 (02/17 103) Ptt/Pt/Inr: 109.2/--/-- (02/17 1329) * ELAYNE Vo - 02/17/2025 2:48 PM EDT Care Management Progress Note Plan of Care- [...] HD. Spouse to provide transportation. ELAYNE Guzman Retort Furnace Helper [phone] Available on secure chat. * ROSE Hill - 02/16/2025 3:42 PM EDT NEPHROLOGY INPATIENT FOLLOW UP NOTE Reason for Consultation: ESRD Referring Provider: Key Rizo MD Hospital Day: 3 SUBJECTIVE Seen during dialysis doing well talked earlier to his also denies cp or sob no nausea or vommiting had echocardiogram earlier OBJECTIVE Vitals: BP 93/52 Pulse 69 Temp 97.9 F (36.6 C) (Oral) Resp (!) 25 Ht 1.702 m (5' 7") Wt 78.9 kg (174 lb) SpO2 94% [...] of this patient. Please page with questions orconcerns. MARIA EUGENIA LANDRY M.D,ALEJANDRO Attending Nephrology page [phone] * Key Rizo MD - 02/16/2025 3:05 PM EDT Hospital Medicine Progress Note Patient: Christian Amador, [...] x2 weeks and had chest tube placed fordrainage. Although he has cough, he has not [...] regimen of 2mg M-F, 1mg on Sat andSun. - holding warfarin - heparin gtt to [...] 29/8.21/97/22/84 (02/16 431) Ptt/Pt/Inr: 46.0/17.9/1.5 (02/16 431) * Castro Lerner [facility] - 02/16/2025 6:45 AM EDT Department of Pharmacy Renal Documentation Note Patient: [...] Phoslo. I have modified the orders in [facility] to reflect the above plan. Please feel free to contact me with any further questions. Name: Castro Kaci Yann [facility] Date/Time: 02/16/2025 6:45 AM * Castro Lerner [facility] - 02/16/2025 6:44 AM EDT Department of Pharmacy Renal Documentation Note Patient: Christian Amador Room/Bed: 1191/A Patient is on Intermittent Hemodialysis Nephrocap Addition Because this patient is on hemodialysis, I have added a daily nephrocap to the orders in [facility]. Please feel free to contact me with any further questions. Name: Castro Lerner [facility] Date/Time: 02/16/2025 6:44 AM * Agueda Collins MD - 02/15/2025 12:23 PM EDT Hospital Medicine Progress Note Patient: Christian Amador, [...] x2 weeks and had chest tube placed fordrainage. Although he has cough, he has not [...] regimen of 2mg M-F, 1mg on Sat andSun. - holding warfarin - heparin gtt to [...] 24/7.08/99/26/93 (02/15 447) Ptt/Pt/Inr: 93.3/19.2/1.6 (02/15 447) * ELEAZAR Brown-S - 02/15/2025 11:19 AM EDT Discharge Planning Assessment Is the patient able [...] Name and Contact information: Sean Amador, son [phone]. Anna noted he lives about 30 min from them Reviewed and Updated in Demographics? : Yes Advanced Care Planning Medication Management Does the patient have prescription insurance coverage? : Yes (medicare, AARP) Is the patient on Anticoagulation? : No [facility] [address] [place] [phone] - [address] [facility] [phone] Living Environment and Support System Is the patient from a facility or shelter?: No Living Environment: Condominium (ranch condo with [...] care for themselves at home? : No Sequins Winder Does the patient or welding equipment sales representative express financial concerns? : No Patient is a 74 yo male admitted for hematochezia as well as concern for empyema at OSH (which patient does not have). Care plan includes GI, pulmonary and thoracic surgery consults. Planning for EGDand colonoscopy tomorrow. Patient on IV ATB for concern for pneumonia. Patient has multiple chronicmedical problems. He is on home dialysis. 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 She is extremely supportive. Patient reports that he lives in [place] with his and will return home at discharge. Patient does use some DME at home but no HHC. Patient and family deny any active SDOH concerns. Anna noted that the ambulance company made her pay $1400 before they would transport the patient to [facility] on Sunday since he was not going [...] discharge, they have a favorite place to gooutpatient. She states that patient has been SOB [...] hospital for a bit. Deborah ARCE CM * Nini Keane RN - 02/15/2025 12:15 AM EDT Pt called out stating arm was bleeding. Rt arm bleeding from small pinpoint area from old IV start attempt. Pressure held 20minutes then pressure dressing applied. No bleeding at this time noted. Circ checks WNL to rt arm. Heparin gtt infusing with no problem. Pt at bedside. 0115: no bleeding from Rt arm site. Pt resting easy. Heparin gtt continues * Agueda Collins MD - 02/14/2025 11:58 AM EDT Hospital Medicine Progress Note Patient: Christian Amador, [...] x2 weeks and had chest tube placed fordrainage. Although he has cough, he has not [...] regimen of 2mg M-F, 1mg on Sat andSun. - Continue warfarin - heparin gtt to [...] 13/4.06/98/26/100 (02/14 26) Ptt/Pt/Inr: 98.3/19.5/1.7 (02/14 26-02/14 07) * Nini Keane RN - 02/13/2025 11:46 PM EDT Pt noted to have facial twitching at [...] sleep. Tele and cpox wnl at rest. * Omid Bonilla RPh,PharmD - 02/13/2025 5:17 PM EDT Department of Pharmacy Renal Documentation Note Patient: [...] contact with any questions, Name: Omid Bonilla RPh,PharmMarkus Phone: [phone] Date/Time: 02/13/2025 5:19 PM [facility] History of Present illness Narrative* Mel Brooks RN - 03/06/2025 12:36 PM EDT Care Management Discharge Note Selected Continued Care - Admitted Since 02/13/2025 Dialysis/Infusion Coordination complete. Service Provider Services Address Phone Fax Patient Preferred [facility] Dialysis [address], [facility] [address] -- Internal Comment last updated by ELAYNE oV 2025 1307 Home HD Confirmed with patients at bedside that patient checks his INR every Sunday and follows up his Copy Center Operator with results. to transport patient home. AVS updated. Patient medically stable for discharge per physician/medical team. Patient/Stock Receiver remain in agreement with the discharge plan. Mel MARIE, RN Clinical Legal Office Administrator [address] [place], [place] [address]an Can be reached by phone at [phone] or by Secure Chat * Garcia Bay MD, PhD - 03/05/2025 5:07 PM EDT Images from the original note were [...] 1242 Peripheral IV Line - Single Lumen 03/29/25 1840 forearm, posterior, right 22 gauge 02/14/25 1840 --18 Wound Skin Tear 02/03/23 1515 Midline;Posterior Buttocks 02/03/23 1515 Buttocks 761 Wound Surgical 02/13/23 0820 incision Left Back 02/13/23 0820 Back 751 PHYSICAL EXAM: General: Laying in bed, no apparent distress. CV: S1 and S2 normal, no murmurs, clicks, gallops or rubs. Regular rate and rhythm. Pulm: Chest is clear, no wheezing or rales. Normal symmetric air entry throughout both lung chavez.No chest wall deformities or tenderness. Trunk/Abd: The abdomen is soft without tenderness, guarding, mass, rebound or organomegaly. Bowel sounds are normal. Ext& Skin: No edema, No rash. DIAGNOSTIC RESULTS/PROCEDURES: Labs: WBC/Hgb/Hct/Plts: 10.65/10.6/34.2/303 (03/05 416) Bun/Creat/Cl/CO2/Glucose: 26/5.35/100/25/95 (03/05 416) Na/K+/Phos/Mg/Ca: 139/5.1/4.9/2.0/9.4 (03/05 416) Radiology/Images: Reviewed TTE: Mildly dilated left ventricle with mild increase in septal wall wall thickness (max 1.2 cm). Normalsystolic function, LVEF 55-60%, with abnormal septal motion. [...] DI Vmax 0.27, DI VTI 0.33) with mildregurgitation. Mild to moderate tricuspid regurgitation with moderate [...] questions. Garcia Bay MD, PhD [facility] * Hoda Moore MD - 03/05/2025 1:52 PM EDT Hospital Medicine Progress Note Patient: Christian Amador, [...] regimen of 2mg M-F, 1mg on Sat andSun (12mg total weekly dose, started about 1 [...] clinical status (no fevers, normal WBC), but nephremains concerned about site. - ID consulted for [...] 26/5.35/100/25/95 (03/05 416) Ptt/Pt/Inr: 86.9/29.8/2.8 (03/05 416) * Mel Aldana MD - 03/04/2025 11:[address] [facility] Progress Note Patient: Christian Amador, [...] regimen of 2mg M-F, 1mg on Sat andSun (12mg total weekly dose). Stable dose regimen [...] clinical status (no fevers, normal WBC), but nephremains concerned about site. - ID consulted for [...] Data Review Ptt/Pt/Inr: 113.6/26.1/2.4 (03/04 0322-03/04 1040) * Sarah ELAYNE Berkowitz - 03/03/2025 2:28 PM EDT Care Management Progress Note Plan of Care- Treatment Updates: Working on therapeutic INR, must be 2.5 prior to discharge. INR was 2.1. Patientwith positive cultures, ID consulted, awaiting final recs. Discharge updates: Patient to discharge home with spouse, spouse to provide transportation. Patienthas home HD, patient to follow with home hemo RN at discharge. Barriers: medical readiness (therapeutic INR, final ID plan) Current Referrals and Status Home Dialysis info Selected Continued Care - Admitted Since 02/13/2025 Dialysis/Infusion Service Provider Services Address Phone Fax Patient Preferred [facility] Dialysis [address] [place] [address] RD, [facility] [id number] -- Internal Comment last updated by ELAYNE Vo 2025 1307 Home HD Sarah Su MSW, ADJUNCT INSTRUCTOR Retort Furnace Helper [phone] Available on secure chat. * Laney Amrita - 03/03/2025 1:26 PM EDT NUTRITION FOLLOW-UP Pt with identified nutrition risk factors: Current admit and PMHx Nutrition Plan of Care: 1. Continue current diet order. 2. Pt declined oral nutrition supplements. 3. Monitor for significant weight changes. 4. Monitor GI and skin integrity. 5. Monitor and encourage po intakes with goal of average po being 75%. 6. Dredge Pipe Operator to follow. Met with patient today at bedside wearing [...] lb 15.1 oz) Height: 170.2 cm (5' 7.01") no significant weight changes in 1 month [...] oral supplement. Pt states they don't have anynausea or vomiting. Laney Crowe [facility] data technician student Cosigned by PAMELA Riggins at 03/03/2025 2:33 PM EDT Associated attestation - Tamiko Boss DT - 03/03/2025 2:33 PM EDT I have reviewed/corrected the Dredge Pipe Operator student note and agree with the nutrition plan of care. PAMELA Riggins Pager [phone] * Mel Aldana MD - 03/03/2025 11:54 AM EDT Hospital Medicine Progress Note Patient: Christian Amador, [...] regimen of 2mg M-F, 1mg on Sat andSun (12mg total weekly dose). Stable dose regimen [...] clinical status (no fevers, normal WBC), but nephremains concerned about site. - ID consulted for [...] (03/03 517) Ptt/Pt/Inr: 102.3/23.0/2.1 (03/02 2226-03/03 517) * ROSE Sinclair - 03/02/2025 3:06 PM EDT ESRD Note: Diagnosis: ESRD on dialysis currently hospitalized for workup of hematochezia. Remains hospitalizedto get his INR therapeutic Subjective: Feels ok [...] (Axillary) Resp 23 Ht 1.702 m (5' 7.01") Wt 78.9 kg (173 lb 15.1 oz) [...] Daily early evening ROSE Browne, MS Attending Edge Bander Operator * ELAYNE Vo - 03/02/2025 11:52 AM EDT 03/02/25 1151 Outlier Review Reviewing for: Outlier Meeting Medical Necessity: Yes Medical Necessity Summary: Patient's INR must be 2.5 prior to discharge, today 03/02 INR 1.9 Barriers: Standard Treatment/Therapy Intervention: No intervention needed Action by Other Stakeholder SW;Legal Office AdministratorProfiler Hand Comments: CM/SW continue to follow Escalated to: None Required Sarah ANGULO, ADJUNCT INSTRUCTOR Retort Furnace Helper [phone] Available on secure chat. * Mel Aldana MD - 03/02/2025 10:35 AM EDT Hospital Medicine Progress Note Patient: Christian Amador, [...] regimen of 2mg M-F, 1mg on Sat andSun (12mg total weekly dose). Stable dose regimen [...] Data Review Ptt/Pt/Inr: 53.0/21.4/1.9 (03/02 0325-03/02 0813) * Mel Aldana MD - 03/01/2025 10:36 AM EDT Hospital Medicine Progress Note Patient: Christian Amador, [...] regimen of 2mg M-F, 1mg on Sat andSun (12mg total weekly dose). Stable dose regimen [...] Data Review Ptt/Pt/Inr: 57.2/17.9/1.5 (02/28 2221-03/01 0539) * Mel Aldana MD - 02/28/2025 11:[address] [facility] Progress Note Patient: Christian Amador, [...] regimen of 2mg M-F, 1mg on Sat andSun (12mg total weekly dose). Stable dose regimen [...] 36/6.59/101/25/114 (02/28 109) Ptt/Pt/Inr: 101.1/17.8/1.5 (02/28 109-02/28 759) * ELAYNE Vo - 2025 1:08 PM EDT Care Management Progress Note Plan of Care- Treatment Updates: Working on therapeutic INR, must be 2.5 prior to discharge. INR today 02/27 was 1.5 Discharge updates: Patient to discharge home with spouse, spouse to provide transportation. Patienthas home HD, patient to follow with home hemo RN at discharge. Current Referrals and Status Home Dialysis info Selected Continued Care - Admitted Since 02/13/2025 Dialysis/Infusion Service Provider Services Address Phone Fax Patient Preferred [facility] D[facility] [address], [facility] [address] [phone] -- Internal Comment last updated by ELAYNE Vo 2025 1307 Home HD ELAYNE Guzman Retort Furnace Helper [phone] Available on secure chat. * Mel Aldana MD - 2025 11:33 AM EDT Hospital Medicine Progress Note Patient: Christian Amador, [...] regimen of 2mg M-F, 1mg on Sat andSun (12mg total weekly dose). Stable dose regimen [...] Data Review Ptt/Pt/Inr: 97.6/17.6/1.5 (02/27 0205-02/27 0935) * Mel Aldana MD - 02/26/2025 11:49 AM EDT Hospital Medicine Progress Note Patient: Christian Amador, [...] regimen of 2mg M-F, 1mg on Sat andSun (12mg total weekly dose). Stable dose regimen [...] affect and cognition Data Review WBC/Hgb/Hct/Plts: 5.90/8.5/28.0/175 (02/25 2345) Na/K+/Phos/Mg/Ca: 137/4.4/4.3/1.8/8.7 (02/25 2345) Bun/Creat/Cl/CO2/Glucose: 22/4.82/98/26/91 (02/25 2345) Ptt/Pt/Inr: 93.8/16.9/1.4 (02/25 2345) * ROSE Hill - 02/26/2025 9:28 AM EDT ESRD Note: Diagnosis: ESRD on dialysis currently hospitalized for workup of hematochezia. And pleural effusionRemains hospitalized to get his INR therapeutic Subjective: [...] Resp (!) 31 Ht 1.702 m (5' 7.01") Wt 78.9 kg (173 lb 15.1 oz) [...] Sunday MARIA EUGENIA LANDRY M.D,ALEJANDRO Attending Nephrology * ROSE Hill - 02/25/2025 10:24 AM EDT ESRD Note: Diagnosis: ESRD on dialysis currently hospitalized for workup of hematochezia. And pleural effusionRemains hospitalized to get his INR therapeutic Subjective: [...] Resp (!) 32 Ht 1.702 m (5' 7.01") Wt 78.9 kg (173 lb 15.1 oz) [...] evening MARIA EUGENIA LANDRY M.D,ALEJANDRO Attending Nephrology * Hien Anderson MD - 02/25/2025 8:[address] [facility] Progress Note Patient: Christian Amador, [...] regimen of 2mg M-F, 1mg on Sat andSun (12mg total weekly dose). Stable dose regimen [...] be determined by GI pending path results andbased on clinical status at that time (needs [...] status is Full Code Hien Anderson MD [facility] p3921 Interval History / Subjective [...] Data Review Ptt/Pt/Inr: 79.7/15.8/1.3 (02/24 2307-02/25 1135) * ROSE Hill - 02/24/2025 3:42 PM EDT Follow up Note: Diagnosis: ESRD on dialysis [...] (Oral) Resp 16 Ht 1.702 m (5' 7.01") Wt 78.9 kg (173 lb 15.1 oz) [...] evening MARIA EUGENIA LANDRY M.D,ALEJANDRO Attending Nephrology * Hien Anderson MD - 02/24/2025 8:41 AM EDT Hospital Medicine Progress Note Patient: Christian Amador, [...] regimen of 2mg M-F, 1mg on Sat andSun (12mg total weekly dose) - heparin gtt to bridge until therapeutic on home warfarin (high risk medication requiring monitoring for toxicity) - pharmacy consulted for assistance with warfarin management and dose adjustments. Will give 8mg today 48 as his INR has not increased after [...] be determined by GI pending path results andbased on clinical status at that time (needs [...] status is Full Code Hien Anderson MD [facility] p3921 Interval History / Subjective [...] (02/24 0002) Ptt/Pt/Inr: 75.1/15.5/1.2 (02/24 0433-02/24 1049) * ROSE Sinclair - 02/23/2025 3:36 PM EDT ESRD Note: Diagnosis: ESRD on dialysis currently hospitalized for workup of hematochezia. Remains hospitalizedto get his INR therapeutic Subjective: Feels ok [...] Resp (!) 26 Ht 1.702 m (5' 7.01") Wt 78.9 kg (173 lb 15.1 oz) [...] day on Sunday ROSE Browne, MS Attending Edge Bander Operator * PAMELA Greenberg - 02/23/2025 3:14 PM EDT NUTRITION RISK SCREENING NOTE Pt with identified nutrition risk factors: Current admit, PMHx, and Low Fabian score Nutrition Plan of Care: 1. Continue current diet order. 2. No oral supplements warranted at this time. 3. Monitor for significant weight changes. 4. Monitor GI and skin integrity. 5. Monitor and encourage po intakes with goal of average po being 75%. 6. Dredge Pipe Operator to follow. Christian Amador is a 74 y.o. male admitted with a PMH of ESRD on home dialysis, atrial fibrillation s/p AVN ablation and PPM, MRSA bacteremia on life long suppressive antibiotics, fungemia on chronic fluconazole, mechanical mitral valve, and MADRID cirrhosis of liver, presented to OSH with fatigue,transferred to [facility] for pleural fluid collection that [...] and/or swallowing Food Allergies reviewed:None Cultural or Baptist Restrictions/Preferences: None Pt reports weight loss of [...] past three months. Follow for tolerance to POand weight changes. Current Diet Order DIET PHOSPHORUS AND POTASSIUM RESTRICTED (RENAL) Anthropometrics Height: 170.2 cm (5' 7.01") Admit wt: 174 lb IBW: 148 lb [...] 01/15/23 79.4 kg (175 lb) PAMELA Greenberg Pager:[phone] * Hien Anderson MD - 02/23/2025 8:55 AM EDT Hospital Medicine Progress Note Patient: Christian Amador, [...] regimen of 2mg M-F, 1mg on Sat andSun (12mg total weekly dose) - heparin gtt [...] be determined by GI pending path results andbased on clinical status at that time (needs [...] status is Full Code Hien Anderson MD [facility] Medicine [id number] Interval History / Subjective [...] and cognition Data Review Ptt/Pt/Inr: 41.8/14.5/1.1 (02/23 8437-02/23 8227) * Hien Anderson MD - 02/22/2025 8:41 AM EDT Hospital Medicine Progress Note Patient: Christian Amador, [...] regimen of 2mg M-F, 1mg on Sat andSun (12mg total weekly dose) - heparin gtt [...] be determined by GI pending path results andbased on clinical status at that time (needs [...] status is Full Code Hien Anderson MD [facility] [id number] Interval History / Subjective [...] affect and cognition Data Review Ptt/Pt/Inr: 74.0/14.2/1.1 (02/22 0132-02/22 0829) * Kaveh Perez MD - 02/21/2025 12:36 PM EDT ESRD Note: Diagnosis: ESRD on dialysis currently [...] (Oral) Resp 22 Ht 1.702 m (5' 7.01") Wt 78.9 kg (173 lb 15.1 oz) [...] Sunday Kaveh Perez MD Division of Nephrology * Hien Anderson MD - 02/21/2025 9:[address] [facility] Medicine Progress Note Patient: Christian Amador, [...] regimen of 2mg M-F, 1mg on Sat andSun (12mg total weekly dose) - heparin gtt [...] be determined by GI pending path results andbased on clinical status at that time (needs [...] status is Full Code Hien Anderson MD [facility] [id number] Interval History / Subjective No new issues [...] (02/21 319) Ptt/Pt/Inr: 93.9/14.8/1.2 (02/21 319-02/21 1014) * ELAYNE Vo - 02/20/2025 3:30 PM EDT Care Management Progress Note Plan of Care- Treatment Updates: Currently working on heparin drip bridge to home warfarin. INR must be 2.5-3.5 to be therapeutic. Patient's INR 1.1 today 4/4. Discharge updates: Patient to discharge home with spouse. Patient to resume home HD through [facility] dialysis. Spouse to provide transportation. Barriers: Medical readiness (therapeutic INR) Sarah ANGULO, ELAYNE Retort Furnace Helper [phone] Available on secure chat. * Hien Anderson MD - 02/20/2025 10:25 AM EDT Hospital Medicine Progress Note Patient: Christian Amador, [...] regimen of 2mg M-F, 1mg on Sat andSun (12mg total weekly dose) - heparin gtt [...] be determined by GI pending path results andbased on clinical status at that time (needs [...] Bun/Creat/Cl/CO2/Glucose: 14/4.40/98/28/99 (02/20 303) Ptt/Pt/Inr: 88.2/14.5/1.1 (02/20 0303-02/20 1009) * Sue Hollingsworth - 02/20/2025 9:33 AM EDT Pt is currently a Home Hemo pt at [facility] . Pt will need to follow up with their Home Hemo RN at discharge. * Hien Anderson MD - 02/19/2025 4:[address] [facility] Progress Note Patient: Christian Amador, : 1950, Impression / Plan hCristian Amador is a 74 y.o. male with [...] regimen of 2mg M-F, 1mg on Sat andSun. - heparin gtt to bridge until therapeutic [...] be determined by GI pending path results andbased on clinical status at that time (needs [...] status is Full Code Hien Anderson MD [facility] [id number] Interval History / Subjective [...] 27/7.51/99/25/93 (02/19 423) Ptt/Pt/Inr: 93.3/15.4/1.2 (02/19 423) * ROSE Sinclair - 02/19/2025 2:40 PM EDT ESRD Note: Diagnosis: ESRD on dialysis currently [...] (Oral) Resp 16 Ht 1.702 m (5' 7.01") Wt 78.9 kg (173 lb 15.1 oz) [...] day on Sunday ROSE Browne, MS Attending Edge Bander Operator * Key Rizo MD - 02/18/2025 1:[address] [facility] Progress Note Patient: Christian Amador, [...] x2 weeks and had chest tube placed fordrainage. Although he has cough, he has not [...] regimen of 2mg M-F, 1mg on Sat andSun. - Resuming warfarin today, monitor INR - [...] Bun/Creat/Cl/CO2/Glucose: 16/4.82/98/25/84 (02/18 537) Ptt/Pt/Inr: 80.4/16.7/1.4 (02/18 559-02/19 932) * PATRICIA Rader - 02/17/2025 6:12 PM EDT Dialysis Note: Patient seen on hemodialysis. Chart [...] working well, Qb 400 ml/min. Thank you, PATRICIA Vilchis Nephrology Pager #[phone] Physical Examination: Constitutional: no acute distress, appears [...] Component Value Date PTH 283.6 (H) 02/04/2023 [id number] 40.3 09/03/2021 CALCIUM 8.0 (L) 02/14/2025 ICA 4.6 09/15/2021 PHOSPHORUS 2.9 02/17/2025 MAGNESIUM 1.7 02/17/2025 Lab Results Component Value Date WBC 8.48 02/17/2025 HGB 7.6 (L) 02/17/2025 HCT 24.0 (L) 02/17/2025 PLATELET 170 02/17/2025 MCV 108.6 (H) 02/17/2025 Lab Results Component Value Date PH 7.346 09/16/2021 PCO2 43.7 09/16/2021 PO2 51.4 09/16/2021 HCO3 23.4 09/16/2021 LACT 1.5 02/04/2023 * Key Rizo MD - 02/17/2025 2:[address] [facility] Progress Note Patient: Christian Amador, [...] x2 weeks and had chest tube placed fordrainage. Although he has cough, he has not [...] regimen of 2mg M-F, 1mg on Sat andSun. - Resuming warfarin today, monitor INR - [...] 17/5.28/98/27/99 (02/17 103) Ptt/Pt/Inr: 109.2/--/-- (02/17 1329) * ELAYNE Vo - 02/17/2025 2:48 PM EDT Care Management Progress Note Plan of Care- [...] HD. Spouse to provide transportation. ELAYNE Guzman Retort Furnace Helper [phone] Available on secure chat. * ROSE Hill - 02/16/2025 3:42 PM EDT NEPHROLOGY INPATIENT FOLLOW UP NOTE Reason for Consultation: ESRD Referring Provider: Key Rizo MD Hospital Day: 3 SUBJECTIVE Seen during dialysis doing well talked earlier to his also denies cp or sob no nausea or vommiting had echocardiogram earlier OBJECTIVE Vitals: BP 93/52 Pulse 69 Temp 97.9 F (36.6 C) (Oral) Resp (!) 25 Ht 1.702 m (5' 7") Wt 78.9 kg (174 lb) SpO2 94% [...] of this patient. Please page with questions orconcerns. MARIA EUGENIA LANDRY M.D,ALEJANDRO Attending Nephrology page [phone] * Key Rizo MD - 02/16/2025 3:05 PM EDT Hospital Medicine Progress Note Patient: Christian Amador, [...] x2 weeks and had chest tube placed fordrainage. Although he has cough, he has not [...] regimen of 2mg M-F, 1mg on Sat andSun. - holding warfarin - heparin gtt to [...] 29/8.21/97/22/84 (02/16 431) Ptt/Pt/Inr: 46.0/17.9/1.5 (02/16 431) * Castro Lerner [facility] - 02/16/2025 6:45 AM EDT Department of Pharmacy Renal Documentation Note Patient: [...] Phoslo. I have modified the orders in [facility] to reflect the above plan. Please feel free to contact me with any further questions. Name: Castro Lerner [facility] Date/Time: 02/16/2025 6:45 AM * Castro Lerner [facility] - 02/16/2025 6:44 AM EDT Department of Pharmacy Renal Documentation Note Patient: Christian Amador Room/Bed: 1191/A Patient is on Intermittent Hemodialysis Nephrocap Addition Because this patient is on hemodialysis, I have added a daily nephrocap to the orders in [facility]. Please feel free to contact me with any further questions. Name: Castro Lerner [facility] Date/Time: 02/16/2025 6:44 AM * Agueda Collins MD - 02/15/2025 12:23 PM EDT Hospital Medicine Progress Note Patient: Christian Amador, [...] x2 weeks and had chest tube placed fordrainage. Although he has cough, he has not [...] regimen of 2mg M-F, 1mg on Sat andSun. - holding warfarin - heparin gtt to [...] 24/7.08/99/26/93 (02/15 447) Ptt/Pt/Inr: 93.3/19.2/1.6 (02/15 447) * CLAUDE Brown - 02/15/2025 11:19 AM EDT Discharge Planning Assessment Is the patient able [...] Name and Contact information: Sean Amador, son [phone]. Anna noted he lives about 30 min from them Reviewed and Updated in Demographics? : Yes Advanced Care Planning Medication Management Does the patient have prescription insurance coverage? : Yes (medicare, AARP) Is the patient on Anticoagulation? : No [facility] [address] [place] [phone] - [address] [facility] [phone] Living Environment and Support System Is the patient from a facility or shelter?: No Living Environment: Condominium (ranch condo with [...] care for themselves at home? : No Sequins Winder Does the patient or welding equipment sales representative express financial concerns? : No Patient is a 74 yo male admitted for hematochezia as well as concern for empyema at OSH (which patient does not have). Care plan includes GI, pulmonary and thoracic surgery consults. Planning for EGDand colonoscopy tomorrow. Patient on IV ATB for concern for pneumonia. Patient has multiple chronicmedical problems. He is on home dialysis. 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 She is extremely supportive. Patient reports that he lives in [place] with his and will return home at discharge. Patient does use some DME at home but no HHC. Patient and family deny any active SDOH concerns. Anna noted that the ambulance company made her pay $1400 before they would transport the patient to [facility] on Sunday since he was not going to the next closest hospital. She states that she has never been charged like this before and patient has been transferred her other times previously. I encouraged her to call the ambulance company, as I also have never heard of a patient being charged up front to be transported to a higher level of care hospital. nAna also noted that if patient needs outpatient PT at discharge, they have a favorite place to gooutpatient. She states that patient has been SOB [...] hospital for a bit. Deborah ARCE CM * Nini Keane RN - 02/15/2025 12:15 AM EDT Pt called out stating arm was bleeding. Rt arm bleeding from small pinpoint area from old IV start attempt. Pressure held 20minutes then pressure dressing applied. No bleeding at this time noted. Circ checks WNL to rt arm. Heparin gtt infusing with no problem. Pt at bedside. 0115: no bleeding from Rt arm site. Pt resting easy. Heparin gtt continues * Agueda Collins MD - 02/14/2025 11:[address] [facility] Progress Note Patient: Christian Amador, [...] x2 weeks and had chest tube placed fordrainage. Although he has cough, he has not [...] regimen of 2mg M-F, 1mg on Sat andSun. - Continue warfarin - heparin gtt to [...] (02/14 26) Ptt/Pt/Inr: 98.3/19.5/1.7 (02/14 26-02/14 701) * Nini Keane RN - 02/13/2025 11:46 PM EDT Pt noted to have facial twitching at [...] sleep. Tele and cpox wnl at rest. * Omid Bonilla RPh, PharmD - 02/13/2025 5:17 PM EDT Department of Pharmacy Renal Documentation Note Patient: [...] contact with any questions, Name: Omid Bonilla RPh, PharmD Phone: [phone] Date/Time: 02/13/2025 5:19 PM documented in this encounterSt[facility] Hospital course Narrative* Hoda Moore MD - 03/06/2025 11:35 AM EDT Images from the original note [...] Amador during his recent hospital stay at [facility]. As you may know, Christian Amador is a 75 y.o. male with PMH ESRD on home dialysis, atrial fibrillation s/p AVN ablation and PPM, MRSA bacteremia on life long suppressive antibiotics, fungemia on chronic fluconazole, mechanical aortic valve on warfarin, and MADRID cirrhosis of liver [facility]. The below details his hospital [...] Pathology with extensive mucosal and submucosal necrosis, negativefor malignancy or CMV. Overall suspected related to [...] He will follow up with his local water resource specialist for consideration for starting Aranesp versus alternative agent and his phos binder was resumed ondischarge. Finally, patient had a subtherapeutic INR on admission with his goal INR of 2.5- 3.5 with his mechanical AV (+Afib, recognizing goal without this would be 2-3). He was ultimately bridged with heparin to Coumadin (required a few boosts of dosing for warfarin before got to goal); given overall trend, he will discharge on 2mg daily (from 2mg M-F and 1mg Sat + Sun), with repeat INR on 03/09/25. He willfollow up with his local community support specialist for continued care. Upon discharge the patient's code was Full Code Please see the remainder of this document for relevant data from this admission as well as the patient's discharge instructions and follow-up appointments.. An electronic copy of the patient's records can be obtained via [facility] at [email or web address] It has been my pleasure participating in [...] reviewed and agreed with the Nutrition plan outlinedin the Dietitian s note. Patient Instructions on Discharge Future Appointments Date Time Provider Department Center 03/24/2025 2:30 PM Wm Nicholas MD [facility] 04/15/2025 4:00 PM Vaishnavi Fry DO [facility] Other [facility] [address] [facility] [id number] Follow up Follow up with your [...] Commonly known as: XIFAXAN documented in this [facility]St[facility] Hospital course Narrative* Hoda Moore MD - 03/06/2025 11:35 AM EDT Images from the original note were not included. Hospital Medicine Discharge Summary Patient Name Chrsitian Amador Age (Date of ) 75 y.o. [...] Amador during his recent hospital stay at [facility]. As you may know, Christian Amador is a 75 y.o. male with PMH ESRD on home dialysis, atrial fibrillation s/p AVN ablation and PPM, MRSA bacteremia on life long suppressive antibiotics, fungemia on chronic fluconazole, mechanical aortic valve on warfarin, and MADRID cirrhosis of liver [facility]. The below details his hospital [...] Pathology with extensive mucosal and submucosal necrosis, negativefor malignancy or CMV. Overall suspected related to [...] He will follow up with his local water resource specialist for consideration for starting Aranesp versus alternative agent and his phos binder was resumed ondischarge. Finally, patient had a subtherapeutic INR on admission with his goal INR of 2.5- 3.5 with his mechanical AV (+Afib, recognizing goal without this would be 2-3). He was ultimately bridged with heparin to Coumadin (required a few boosts of dosing for warfarin before got to goal); given overall trend, he will discharge on 2mg daily (from 2mg M-F and 1mg Sat + Sun), with repeat INR on 03/09/25. He willfollow up with his local community support specialist for continued care. Upon discharge the patient's code was Full Code Please see the remainder of this document for relevant data from this admission as well as the patient's discharge instructions and follow-up appointments.. An electronic copy of the patient's records can be obtained via [facility] at [email or web address] It has been my pleasure participating in [...] reviewed and agreed with the Nutrition plan outlinedin the Dietitian s note. Patient Instructions on Discharge Future Appointments Date Time Provider Department Center 03/24/2025 2:30 PM Wm Nicholas MD [facility] 04/15/2025 4:00 PM Vaishnavi Fry DO [facility] Other [facility] [address] [facility] [id number] Follow up Follow up with your Home [...] Commonly known as: XIFAXAN documented in this encounterSt. [facility] Procedure note* Alexander Stiles MD - 03/06/2025 11:03 AM EDTAssociated Order(s): GENERAL PROCEDURE Dialysis Procedure Note Subjective/ [...] Alexander Stiles MD Division of Nephrology Pager: [phone] * Alexander Stiles MD - 03/04/2025 11:43 AM EDTAssociated Order(s): GENERAL PROCEDURE Dialysis Procedure Note Subjective/ [...] Alexander Stiles MD Division of Nephrology Pager: [phone] * Alexander Stiles MD - 02/28/2025 3:33 PM EDTAssociated Order(s): GENERAL PROCEDURE Dialysis Procedure Note Subjective/ [...] Pulse: 71 79 76 76 Resp: 16 Temp: 98.6 degrees F (37 degrees C) 98.2 degrees F (36.8 degrees C) 98.5 degrees F (36.9 degrees C)97.5 degrees F (36.4 degrees C) TempSrc: Oral [...] Alexander Stiles MD Division of Nephrology Pager: [phone] documented in this encounterSt. [facility]04-[facility] Procedure note* lAexander Stiles MD - 03/06/2025 11:03 AM EDTAssociated Order(s): GENERAL PROCEDURE Dialysis Procedure Note Subjective/ [...] Alexander Stiles MD Division of Nephrology Pager: [phone] * Alexander Stiles MD - 03/04/2025 11:43 AM EDTAssociated Order(s): GENERAL PROCEDURE Dialysis Procedure Note Subjective/ [...] Alexander Stiles MD Division of Nephrology Pager: [phone] * Alexander Stiles MD - 02/28/2025 3:33 PM EDTAssociated Order(s): GENERAL PROCEDURE Dialysis Procedure Note Subjective/ [...] 71 79 76 76 Resp: 16 16 16 22 Temp: 98.6 degrees F (37 degrees C) 98.2 degrees F (36.8 degrees C) 98.5 degrees F (36.9 degrees C)97.5 degrees F (36.4 degrees C) TempSrc: Oral [...] Alexander Stiles MD Division of Nephrology Pager: [phone] documented in this encounterSt. [facility]04-[facility] Consult note* Garcia Bay MD, PhD - 03/03/2025 11:21 AM EDTAssociated Order(s): IP CONSULT TO INFECTIOUS DISEASE Images from [...] AVN ablation and PPM, s/p AVR x3 c/bMRSA bacteremia on suppressive doxy, fungemia on chronic [...] breath or cough Gastrointestinal: No abdominal pain, nausea/vomiting/constipation/diarrhea. Genitourinary: No urinary frequency or dysuria Musculoskeletal: No myalgia or arthralgia Skin: No rash Neurology: No paresthesias Hematology/Lymphatic: No edema CURRENT HOSPITALIZATION/LOS: Admit Date: 02/13/2025 [facility] Hospital LOS: 18 days MEDICAL HISTORY: [...] Laterality: N/A; Surgeon: Ronnie Ferrari MD; Location: [facility] EGD DIAGNOSTIC 06/2022 INSERTION CVC TUNNELED N/A 10/10/2021 Laterality: N/A; Surgeon: Remy Ferrer MD; Location: [facility] INTERVENTIONAL RADIOLOGY (VIR) INSERTION CVC TUNNELED N/A 10/03/2021 Laterality: N/A; Surgeon: Kaylin Duran II, MD; Location: [facility] INTERVENTIONAL RADIOLOGY (VIR) PLACEMENT PROBE [...] Laterality: Left; Surgeon: Kaylin Grider MD; [facility] INTER[facility]AL [facility] (VIR) PACEMAKER ELECTRODE [...] Versa CARDIAC PACEMAKER PLACEMENT 08/31/2003 Implant: Medtronic [id number] APPENDECTOMY ND ANES HRT PERICRD SAC&GRT VSLS W/SENIOR DATA MINING ANALYST OXTJ >1MO PO FAMILY HISTORY: Family History [...] 1 tablet by mouth at bedtime. B Sngzznm-P-Rvque Acid (NEPHRO-BALTAZAR PO) Take 1 tablet by [...] evening Continuous Infusions: heparin 7 Units/kg/hr (03/03/25 0629) PRN Meds:Albuterol, hydroxyzine, Melatonin OBJECTIVE FINDINGS: Vital [...] forearm, posterior, right 22 gauge 02/14/25 1840 --16 Wound Skin Tear 02/03/23 1515 Midline;Posterior Buttocks [...] Normal symmetric air entry throughout both lung chavez.No chest wall deformities or tenderness. Trunk/Abd: The [...] septal wall wall thickness (max 1.2 cm). Normalsystolic function, LVEF 55-60%, with abnormal septal motion. [...] DI Vmax 0.27, DI VTI 0.33) with mildregurgitation. Mild to moderate tricuspid regurgitation with moderate [...] follow. Garcia Bay MD, PhD [facility] * Elie Sanches MD - 02/14/2025 10:32 AM EDTAssociated Order(s): IP CONSULT TO GASTROENTEROLOGY Images from the original note were not included. HEPATOLOGY INITIAL CONSULT NOTE Reason for Consultation: "anemia and hematochezia" HISTORY OF PRESENT ILLNESS: Christian Amador is a 74 y.o. 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 Follows with Dr. Fry outpatient. GI consulted for BRBPR, anemia. Endorses intermittent rectal bleeding (describes as blood mixed with stool) which he has noticed inthe past and attributed to his known external [...] no acute GI bleed but multiple small Ladrenal nodules, markedly enlarged prostate. OSH notable for Hb 8.1, WBC 7.9, INR 1.4. Most recent vitals: stable, on 2L NC. Pertinent labs: WBC 8.5, Hgb 7.4 (baseline 11-12), PLT 157, INR 1.7. Evaluated by pulmonology and thoracic surgery for pleural effusion-- neither plan intervention given apparent chronicity of collection. Decompensated [facility] cirrhosis history - HE: rifaximin 550mg bid [...] Laterality: N/A; Surgeon: Ronnie Ferrari MD; Location: [facility] EGD DIAGNOSTIC 06/2022 INSERTION CVC TUNNELED N/A 10/10/2021 Laterality: N/A; Surgeon: Remy Ferrer MD; Location: [facility] INTERVENTIONAL RADIOLOGY (VIR) INSERTION CVC TUNNELED N/A 10/03/2021 Laterality: N/A; Surgeon: Kaylin Duran II, MD; Location: [facility] INTERVENTIONAL RADIOLOGY (VIR) PLACEMENT PROBE [...] Laterality: Right; Surgeon: Kaylin Grider MD; Location: [facility] INTERVENTIONAL RADIOLOGY (VIR) CARDIAC VEIN ELECTRODE PLACEMENT FOR LV PACING N/A 05/26/2016 Laterality: N/A; Surgeon: Yi Cody MD; Location: [facility] EP PACEMAKER PLACEMENT N/A 05/26/2016 Laterality: N/A; Surgeon: Yi Cody MD; Location: [facility] INSERTION CVC TUNNELED Right 05/19/2016 Laterality: Right; Surgeon: Kaylin Grider MD; Location: [facility] INTERVENTIONAL RADIOLOGY (VIR) INSERTION CVC TUNNELED Left 05/18/2016 Laterality: Left; Surgeon: Kaylin Grider MD; Location: [facility] INTERVENTIONAL RADIOLOGY (VIR) PACEMAKER ELECTRODE [...] Versa CARDIAC PACEMAKER PLACEMENT 08/31/2003 Implant: Medtronic [id number] APPENDECTOMY ND ANES HRT PERICRD SAC&GRT VSLS W/SENIOR DATA MINING ANALYST OXTJ >1MO PO CURRENT MEDICATIONS ALPRAZolam 1 [...] 12/18/24 79.2 kg (174 lb 8 oz) 12/04/24 78.9 kg (174 lb) Gen: AAO x [...] and MV annuloplasty, Aflutter (on warfarin) w/ DIALYSIS TECH-P, CAD, ESRD on HD, MRSA bacteremia and [...] colonoscopy for further evaluation -- do not suspectthat he is having a variceal bleed but [...] but not limited to the following: urgent /emergent procedures, change in clinic status (example - [...] result in delay of patient's colonoscopy Decompensated [facility] cirrhosis history - HE: continue rifaximin 550mg [...] reasonable to pursue both EGD (history of GAVE)and colonoscopy. Prep instructions as noted by Dr. Sanches. Warfarin should be held (with heparin gtt co ntinued). Please ensure BID lactulose is continued. Please contact the hepatology consult service with additional questions and concerns. Fernanda Marcos MD Elevator Constructor Electric of Internal Medicine Division of Gastroenterology, Hepatology, and Nutrition Pager: [phone] * Layo Steward MD - 02/13/2025 1:45 PM EDTAssociated Order(s): IP CONSULT TO PULMONOLOGY Images from [...] on 02/13/2025 with from an OSH for eval uation of a pleural effusion. He originally presented to a hospital in [place], [place] with subacute worsening of chronic weakness over the course of about 1.5-3 weeks. Prior to this, he was able to perform ADLs and walk about half acity block: now, he can barely sit on [...] minimal workplace exposures. Never in the or shelter. No history of lung cancer. No history [...] Laterality: N/A; Surgeon: Ronnie Ferrari MD; Location: [facility] EGD DIAGNOSTIC 06/2022 INSERTION CVC TUNNELED N/A 10/10/2021 Laterality: N/A; Surgeon: Remy Ferrer MD; Location: [facility] INTERVENTIONAL RADIOLOGY (VIR) INSERTION CVC TUNNELED N/A 10/03/2021 Laterality: N/A; Surgeon: Kaylin Duran II, MD; Location: [facility] INTERVENTIONAL RADIOLOGY (VIR) PLACEMENT PROBE FOR TRANSESOPHAGEAL [...] Laterality: Right; Surgeon: Kaylin Grider MD; Location: [facility] INTERVENTIONAL RADIOLOGY (VIR) CARDIAC VEIN ELECTRODE PLACEMENT FOR LV PACING N/A 05/26/2016 Laterality: N/A; Surgeon: Yi Cody MD; Location[facility] EP PACEMAKER PLACEMENT N/A 05/26/2016 Laterality: N/A; Surgeon: Yi Cody MD; Location: [facility] EP INSERTION CVC TUNNELED Right 05/19/2016 Laterality: Right; Surgeon: Kaylin Grider MD; Location: [facility] INTERVENTIONAL RADIOLOGY (VIR) INSERTION CVC TUNNELED Left 05/18/2016 Laterality: Left; Surgeon: Kaylin Grider MD; Location: [facility] INTERVENTIONAL RADIOLOGY (VIR) PACEMAKER ELECTRODE [...] N/A; Surgeon: Favio Kline MD; Location: [facility] EP CARDIAC PACEMAKER PLACEMENT 10/20/2010 Implant: Medtronic [id number] Versa CARDIAC PACEMAKER PLACEMENT 08/31/2003 Implant: Medtronic [id number] APPENDECTOMY ND ANES HRT PERICRD SAC&GRT VSLS W/SENIOR DATA MINING ANALYST OXTJ >1MO PO Family History Problem Relation [...] pleural effusion from an OSH. This pleural effusionis chronic and most likely secondary to a previous cardiac surgery and does not likely represent anactive empyema or acute process. 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 I reviewed the history [...] check a sputum culture. Israel Kemp MD machine deicer element winder Division of Pulmonary Medicine, Critical Care and Sleep Dept of Internal Medicine [facility] * Shana Lew MD - 02/13/2025 1:34 PM EDTAssociated Order(s): IP CONSULT TO INTERVENTIONAL RADIOLOGY Interventional Radiology Consult [facility] r[facility] palliative care [id number] - [facility] rn palliative care [id number] PATIENT: Mr. Christian Amador Admission Date: 02/13/2025 Requesting Provider/Service: Fernanda Parra MD HPI: Christian Amador is a 74 y.o. male with HTN, ESRD on dialysis, lymphoma s/p chemotherapy, whopresented with worsening cough, was found to have left lung loculated effusion. Reason for Consult: "74 yo [facility] for L pleural fluid collection concerning for empyema. Thoracic recommending pulm consult" Currently on Blood Thinner: Warfarin, currently being [...] Clark MD at 02/13/2025 2:03 PM EDT * ROSE Hill - 02/13/2025 12:57 PM EDTAssociated Order(s): IP CONSULT TO NEPHROLOGY Inpatient Nephrology Consult Note Reason for Consultation: ESRD Requesting Physician: Fernanda Parra MD History of Present Illness: Christian Amador is a 74 y.o. male who we have been consulted to see on 02/13/2025. Christian Amador has a past medical history of HTN,ESRD on home hemodialysis ,HTN,S/P AVR,lymphomas/p chemo Patient was having progressive weakness for [...] Laterality: N/A; Surgeon: Remy Ferrer MD; Location: [facility] INTERVENTIONAL RADIOLOGY (VIR) INSERTION CVC TUNNELED N/A 10/03/2021 Laterality: N/A; Surgeon: Kaylin Duran II, MD; Location: [facility] INTERVENTIONAL RADIOLOGY (VIR) PLACEMENT PROBE [...] Laterality: Right; Surgeon: Kaylin Grider MD; Location: [facility] INTERVENTIONAL RADIOLOGY (VIR) CARDIAC VEIN ELECTRODE PLACEMENT FOR LV PACING N/A 05/26/2016 Laterality: N/A; Surgeon: Yi Cody MD; Location: [facility] EP PACEMAKER PLACEMENT N/A 05/26/2016 Laterality: N/A; Surgeon: Yi Cody MD; Location: [facility] EP INSERTION CVC TUNNELED Right 05/19/2016 Laterality: Right; Surgeon: Kaylin Grider MD; Location: [facility] INTERVENTIONAL RADIOLOGY (VIR) INSERTION CVC TUNNELED Left 05/18/2016 Laterality: Left; Surgeon: Kaylin Grider MD; Location: [facility] INTERVENTIONAL RADIOLOGY (VIR) PACEMAKER ELECTRODE REMOVAL N/A 05/08/2016 Laterality: N/A; Surgeon: Luigi Mart MD; Location: [facility] EP COLONOSCOPY DIAGNOSTIC N/A 03/20/2016 Laterality: N/A; Surgeon: Jeremiah García MD; Location: [facility] ENDOSCOPY EP IMPLANT BIVENTRICULAR PACEMAKER TOTAL 08/07/2013 3 leads CARDIAC VEIN ELECTRODE PLACEMENT FOR LV PACING N/A 08/07/2013 Laterality: N/A; Surgeon: Favio Kline MD; [facility] [place] EP PACEMAKER ELECTRODE REMOVAL 08/07/2013 Surgeon: Favio Kline MD; Location: [facility] EP AV NODE ABLATION N/A 02/26/2013 Laterality: N/A; Surgeon: Favio Kline MD; Location: [facility] EP CARDIAC PACEMAKER PLACEMENT 10/20/2010 Implant: Medtronic [id number] Versa CARDIAC PACEMAKER PLACEMENT 08/31/2003 Implant: Medtronic [id number] [address] APPENDECTOMY ND ANES HRT PERICRD SAC&GRT VSLS W/SENIOR DATA MINING ANALYST OXTJ >1MO PO Medications Prior to Admission Medication Sig Dispense Refill Last Dose/Taking Acetaminophen (TYLENOL PO) Take by mouth. ALPRAZolam 1 MG tablet Take 1 tablet by mouth at bedtime. B Zmfdigk-F-Qvala Acid (NEPHRO-BALTAZAR PO) Take 1 tablet by [...] patient. MARIA EUGENIA LANDRY M.D,ALEJANDRO Attending Nephrology * Mindi Lozano MD - 02/13/2025 11:59 AM EDTAssociated Order(s): IP CONSULT TO SURGERY - THORACIC THORACIC SURGERY CONSULT NOTE Patient Name: Christian Amador Admit Date: 02/13/2025 [facility] Hospital: LOS: 0 days Date of Evaluation: 02/13/2025 11:59 AM Reason for Consult / Chief Complaint: "74 yo [facility] for [facility] evaluation in setting of empyema" ASSESSMENT: Christian Amador is a 74 y.o. [...] OSH. [facility]. No chest tube was placed. [...] appendectomy; pr anes hrt pericrd sac&grt vsls w/photographer's model oxtj >1mopo; ep implant biventricular pacemaker total (08/07/2013); cardiac [...] Sandra den Cardiac in his paternal uncle. He He indicated that his mother is . He indicated that his father is . He indicated that two of his three sisters are alive. He indicated thatonly one of his four brothers is alive. [...] mouth at bedtime. 01/18/24 Historical Provider B Qpguvxz-J-Mrovc Acid (NEPHRO-BALTAZAR PO) Take 1 tablet by [...] Constitutional: Well-developed, well-nourished, in no distress. Skin/Wounds: [place], warm and dry Neurological: Awake, alert, follows [...] study was sent from an outside facility [facility] for support of clinical care of the patient within the [facility] system. XR CHEST (OUTSIDE IMAGE) Result Date: 02/13/2025 Outside Imaging Study for Support of Clinical Care. This study was sent from an outside facility [facility] for support of clinical care of the patient within the [facility] system. CT CHEST (OUTSIDE IMAGE) Result Date: 02/13/2025 Outside Imaging Study for Support of Clinical Care. This study was sent from an outside facility [facility] for support of clinical care of the patient within the [facility] system. Cosigned by Galileo Nash MD at 02/18/2025 4:59 PM EDT documented in this encounterU [facility] Consult note* Garcia Bay MD, PhD - 03/03/2025 11:21 AM EDTAssociated Order(s): IP CONSULT TO INFECTIOUS DISEASE Images from [...] AVN ablation and PPM, s/p AVR x3 c/bMRSA bacteremia on suppressive doxy, fungemia on chronic [...] breath or cough Gastrointestinal: No abdominal pain, nausea/vomiting/constipation/diarrhea. Genitourinary: No urinary frequency or dysuria Musculoskeletal: No myalgia or arthralgia Skin: No rash Neurology: No paresthesias Hematology/Lymphatic: No edema CURRENT HOSPITALIZATION/LOS: Admit Date: 02/13/2025 [facility] LOS: 18 days MEDICAL HISTORY: Past [...] N/A; Surgeon: Kaylin Duran II, MD; Location: [facility] INTERVENTIONAL RADIOLOGY (VIR) PLACEMENT PROBE [...] Laterality: Right; Surgeon: Kaylin Grider MD; Location: [facility] INTERVENTIONAL RADIOLOGY (VIR) CARDIAC VEIN ELECTRODE PLACEMENT FOR LV PACING N/A 05/26/2016 Laterality: N/A; Surgeon: Yi Cody MD; Location: [facility] EP PACEMAKER PLACEMENT N/A 05/26/2016 Laterality: N/A; Surgeon: Yi Cody MD; Location: [facility] EP INSERTION CVC TUNNELED Right 05/19/2016 Laterality: Right; Surgeon: Kaylin Grider MD; Location: [facility] INTERVENTIONAL RADIOLOGY (VIR) INSERTION CVC TUNNELED Left 05/18/2016 Laterality: Left; Surgeon: Kaylin Grider MD; Location: [facility] INTERVENTIONAL RADIOLOGY (VIR) PACEMAKER ELECTRODE [...] Versa CARDIAC PACEMAKER PLACEMENT 08/31/2003 Implant: Medtronic [id number] APPENDECTOMY ND ANES HRT PERICRD SAC&GRT VSLS W/SENIOR DATA MINING ANALYST OXTJ >1MO PO FAMILY HISTORY: Family History [...] 1 tablet by mouth at bedtime. B Xkcogfe-F-Egscc Acid (NEPHRO-BALTAZAR PO) Take 1 tablet by [...] evening Continuous Infusions: heparin 7 Units/kg/hr (03/03/25 0629) PRN Meds:Albuterol, hydroxyzine, Melatonin OBJECTIVE FINDINGS: Vital [...] forearm, posterior, right 22 gauge 02/14/25 1840 --16 Wound Skin Tear 02/03/23 1515 Midline;Posterior Buttocks [...] Normal symmetric air entry throughout both lung chavez.No chest wall deformities or tenderness. Trunk/Abd: The [...] septal wall wall thickness (max 1.2 cm). Normalsystolic function, LVEF 55-60%, with abnormal septal motion. [...] DI Vmax 0.27, DI VTI 0.33) with mildregurgitation. Mild to moderate tricuspid regurgitation with moderate [...] follow. Garcia Bay MD, PhD [facility] * Elie Sanches MD - 02/14/2025 10:32 AM EDTAssociated Order(s): IP CONSULT TO GASTROENTEROLOGY Images from the original note were not included. HEPATOLOGY INITIAL CONSULT NOTE Reason for Consultation: "anemia and hematochezia" HISTORY OF PRESENT ILLNESS: Christian Amador is a 74 y.o. 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 Follows with Dr. Fry outpatient. GI consulted for BRBPR, anemia. Endorses intermittent rectal bleeding (describes as blood mixed with stool) which he has noticed inthe past and attributed to his known external [...] no acute GI bleed but multiple small Ladrenal nodules, markedly enlarged prostate. OSH notable for Hb 8.1, WBC 7.9, INR 1.4. Most recent vitals: stable, on 2L NC. Pertinent labs: WBC 8.5, Hgb 7.4 (baseline 11-12), PLT 157, INR 1.7. Evaluated by pulmonology and thoracic surgery for pleural effusion-- neither plan intervention given apparent chronicity of collection. Decompensated [facility] cirrhosis history - HE: rifaximin 550mg bid [...] Laterality: N/A; Surgeon: Remy Ferrer MD; Location: [facility] INTERVENTIONAL RADIOLOGY (VIR) INSERTION CVC TUNNELED N/A 10/03/2021 Laterality: N/A; Surgeon: Kaylin Duran II, MD; Location: [facility] INTERVENTIONAL RADIOLOGY (VIR) PLACEMENT PROBE [...] Laterality: Right; Surgeon: Kaylin Grider MD; Location: [facility] INTERVENTIONAL RADIOLOGY (VIR) CARDIAC VEIN ELECTRODE PLACEMENT FOR LV PACING N/A 05/26/2016 Laterality: N/A; Surgeon: Yi Cody MD; Location: [facility] EP PACEMAKER PLACEMENT N/A 05/26/2016 Laterality: N/A; Surgeon: Yi Cody MD; Location: [facility] EP INSERTION CVC TUNNELED Right 05/19/2016 Laterality: Right; Surgeon: Kaylin Grider MD; Location: [facility] INTERVENTIONAL RADIOLOGY (VIR) INSERTION CVC [...] Versa CARDIAC PACEMAKER PLACEMENT 08/31/2003 Implant: Medtronic [id number] [address] APPENDECTOMY ND ANES HRT PERICRD SAC&GRT VSLS W/SENIOR DATA MINING ANALYST OXTJ >1MO PO CURRENT MEDICATIONS ALPRAZolam 1 [...] and MV annuloplasty, Aflutter (on warfarin) w/ DIALYSIS TECH-P, CAD, ESRD on HD, MRSA bacteremia and [...] colonoscopy for further evaluation -- do not suspectthat he is having a variceal bleed but [...] but not limited to the following: urgent /emergent procedures, change in clinic status (example - [...] result in delay of patient's colonoscopy Decompensated [facility] cirrhosis history - HE: continue rifaximin 550mg [...] reasonable to pursue both EGD (history of GAVE)and colonoscopy. Prep instructions as noted by Dr. Sanches. Warfarin should be held (with heparin gtt co ntinued). Please ensure BID lactulose is continued. Please contact the hepatology consult service with additional questions and concerns. Fernanda Marcos MD Elevator Constructor [employer] of Internal Medicine Division of Gastroenterology, Hepatology, and Nutrition Pager: [phone] * Layo Steward MD - 02/13/2025 1:45 PM EDTAssociated Order(s): IP CONSULT TO PULMONOLOGY Images from [...] on 02/13/2025 with from an OSH for eval uation of a pleural effusion. He originally presented to a hospital in [place], [place] with subacute worsening of chronic weakness over the course of about 1.5-3 weeks. Prior to this, he was able to perform ADLs and walk about half acity block: now, he can barely sit on [...] minimal workplace exposures. Never in the or shelter. No history of lung cancer. No history [...] N/A; Surgeon: Ronnie Ferrari MD; Location: [facility] EP EGD DIAGNOSTIC 06/2022 INSERTION CVC TUNNELED N/A 10/10/2021 Laterality: N/A; Surgeon: Remy Ferrer MD; Location: [facility] INTERVENTIONAL RADIOLOGY (VIR) INSERTION CVC TUNNELED N/A 10/03/2021 Laterality: N/A; Surgeon: Kaylin Duran II, MD; Location: [facility] INTERVENTIONAL RADIOLOGY (VIR) PLACEMENT PROBE [...] Laterality: Right; Surgeon: Kaylin Grider MD; Location: [facility] INTERVENTIONAL RADIOLOGY (VIR) CARDIAC VEIN ELECTRODE PLACEMENT FOR LV PACING N/A 05/26/2016 Laterality: N/A; Surgeon: Yi Cody MD; Location: [facility] EP PACEMAKER PLACEMENT N/A 05/26/2016 Laterality: N/A; Surgeon: Yi Cody MD; Location: [facility] EP INSERTION CVC TUNNELED Right 05/19/2016 Laterality: Right; Surgeon: Kaylin Grider MD; Location: [facility] INTERVENTIONAL RADIOLOGY (VIR) INSERTION CVC [...] Versa CARDIAC PACEMAKER PLACEMENT 08/31/2003 Implant: Medtronic [id number] APPENDECTOMY ND ANES HRT PERICRD SAC&GRT VSLS W/SENIOR DATA MINING ANALYST OXTJ >1MO PO Family History Problem Relation [...] pleural effusion from an OSH. This pleural effusionis chronic and most likely secondary to a previous cardiac surgery and does not likely represent anactive empyema or acute process. Impression: Chronic Left Pleural Effusion Etiology is possibly a prior cardiac surgery given the exudative, but noninfected and nonmalignant nature of the effusion in 2022. Unlikely to represent an acute infection like empyema. He has few symptoms of intrapleural sepsis and the effusion is nearly identical to the previous effusion Remarkably similar in size and character as 2022. There is a chance the effusion is contributing to his chronic dyspnea. 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 I reviewed the history [...] check a sputum culture. Israel Kemp MD machine deicer element winder Division of Pulmonary Medicine, Critical Care and Sleep Dept of Internal Medicine [facility] * Shana Lew MD - 02/13/2025 1:34 PM EDTAssociated Order(s): IP CONSULT TO INTERVENTIONAL RADIOLOGY Interventional Radiology Consult Note [facility] r[facility] palliative care [id number] - [facility] rn palliative care [id number] PATIENT: Mr. Christian Amador Admission Date: 02/13/2025 Requesting Provider/Service: Fernanda Parra MD HPI: Christian Amador is a 74 y.o. male with HTN, ESRD on dialysis, lymphoma s/p chemotherapy, whopresented with worsening cough, was found to have left lung loculated effusion. Reason for Consult: "74 yo [facility] for [facility] pleural fluid collection concerning for empyema. Thoracic recommending pulm consult" Currently on Blood Thinner: Warfarin, currently being [...] Clark MD at 02/13/2025 2:03 PM EDT * ROSE Hill - 02/13/2025 12:57 PM EDTAssociated Order(s): IP CONSULT TO NEPHROLOGY Inpatient Nephrology Consult Note Reason for Consultation: ESRD Requesting Physician: Fernanda Parra MD History of Present Illness: Christian Amador is a 74 y.o. male who we have been consulted to see on 02/13/2025. Christian Amador has a past medical history of HTN,ESRD on home hemodialysis ,HTN,S/P AVR,lymphomas/p chemo Patient was having progressive weakness for [...] Laterality: N/A; Surgeon: Ronnie Ferrari MD; Location: [facility] EP EGD DIAGNOSTIC 06/2022 INSERTION CVC TUNNELED N/A 10/10/2021 Laterality: N/A; Surgeon: Remy Ferrer MD; Location: [facility] INTERVENTIONAL RADIOLOGY (VIR) INSERTION CVC TUNNELED N/A 10/03/2021 Laterality: N/A; Surgeon: Kaylin Duran II, MD; Location: [facility] INTERVENTIONAL RADIOLOGY (VIR) PLACEMENT PROBE FOR TRANSESOPHAGEAL ECHOCARDIOGRAPHY N/A 09/23/2021 Laterality: N/A; Surgeon: Sadia Nieto MD; Location: [facility] ROSS MAIN OR ESS NASAL DIAGNOSTIC Bilateral 09/20/2021 Laterality: Bilateral; Surgeon: You Wise MD; Location: [facility] MAIN OR ESS SPHENOID SINUSOTOMY WITH REMOVAL TISSUE Right 09/20/2021 Laterality: Right; Surgeon: You Wise MD; [facility] ESS TOTAL ETHMOIDECTOMY Right 09/20/2021 Laterality: Right; Surgeon: You Wise MD; [facility] MAIN OR REMOVAL CVC TUNNELED Right 07/07/2016 Laterality: Right; Surgeon: Kaylin Grider MD; Location: [facility] INTERVENTIONAL RADIOLOGY ([facility]) CARDIAC VEIN ELECTRODE PLACEMENT FOR LV PACING N/A 05/26/2016 Laterality: N/A; Surgeon: Yi Cody MD; Location: [facility] EP PACEMAKER PLACEMENT N/A 05/26/2016 Laterality: N/A; Surgeon: Yi Cody MD; Location: [facility] EP INSERTION CVC TUNNELED Right 05/19/2016 Laterality: Right; Surgeon: Kaylin Grider MD; [facility]OLOG[facility] ([facility]) INSERTION CVC TUNNELED Left 05/18/2016 Laterality: Left; Surgeon: Kaylin Grider MD; Location: [facility] INTERVENT[facility]AL [facility]OLOGY ([facility]) PACEMAKER ELECTRODE REMOVAL N/A 05/08/2016 Laterality: N/A; Surgeon: Luigi Mart MD; Location: [facility] EP COLONOSCOPY DIAGNOSTIC N/A 03/20/2016 Laterality: N/A; [...] Versa CARDIAC PACEMAKER PLACEMENT 08/31/2003 Implant: Medtronic [id number] APPENDECTOMY ND ANES HRT PERICRD SAC&GRT VSLS W/SENIOR DATA MINING ANALYST OXTJ >1MO PO Medications Prior to Admission Medication Sig Dispense Refill Last Dose/Taking Acetaminophen (TYLENOL PO) Take by mouth. ALPRAZolam 1 MG tablet Take 1 tablet by mouth at bedtime. B Ytydidp-W-Dpmap Acid (NEPHRO-BALTAZAR PO) Take 1 tablet by [...] care of your patient. MARIA EUGENIA LANDRY M.D,KTAHRINEN Attending Nephrology * Mindi Lozano MD - 02/13/2025 11:59 AM EDTAssociated Order(s): IP CONSULT TO SURGERY - THORACIC THORACIC SURGERY CONSULT NOTE Patient Name: Christian Amador Admit Date: 02/13/2025 [facility] Hospital: LOS: 0 days Date of Evaluation: 02/13/2025 11:59 AM Reason for Consult / Chief Complaint: "74 yo [facility] for [facility] evaluation in setting of empyema" ASSESSMENT: Christian Amador is a 74 y.o. [...] OSH. [facility]. No chest tube was placed. [...] appendectomy; pr anes hrt pericrd sac&grt vsls w/photographer's model oxtj >1mopo; ep implant biventricular pacemaker total (08/07/2013); cardiac [...] Sandra den Cardiac in his paternal uncle. He He indicated that his mother is . He indicated that his father is . He indicated that two of his three sisters are alive. He indicated thatonly one of his four brothers is alive. [...] mouth at bedtime. 01/18/24 Historical Provider B Ktsyxff-A-Avxqr Acid (NEPHRO-BALTAZAR PO) Take 1 tablet by [...] Constitutional: Well-developed, well-nourished, in no distress. Skin/Wounds: [place], warm and dry Neurological: Awake, alert, follows [...] study was sent from an outside facility [facility] for support of clinical care of the patient within the [facility]. XR CHEST (OUTSIDE IMAGE) Result Date: 02/13/2025 Outside Imaging Study for Support of Clinical Care. This study was sent from an outside facility [facility] for support of clinical care of the patient within the [facility]. CT CHEST (OUTSIDE IMAGE) Result Date: 02/13/2025 Outside Imaging Study for Support of Clinical Care. This study was sent from an outside facility [facility] for support of clinical care of the patient within the [facility]. Cosigned by Galileo Nash MD at 02/18/2025 4:59 PM EDT documented in this encounterOSU [facility]03-[facility] Hospital Discharge instructions* Discharge Instructions* Hoda Moore MD - 02/16/2025 10:21 AM EDT Patient Experience Survey Reminder You may receive a survey in the mail within a few weeks regarding your hospitalization. This helps us to improve the care and services we provide at [facility]. We truly appreciate you taking the [...] performed colonoscopy which showed some stenosis and possibleischemia in the sigmoid colon. EGD did not [...] Fibrosis Pulmonary Hypertension Sarcoidosis Scheduling Please call [phone] to schedule this appointment. Many appointments can also be scheduled online using [employer] by visiting ([email or web address]). The outpatient pulmonary clinics are at the following locations: [facility]; [address]; [address] [address] Out[facility] [place]; [address] [address] Outpatient [facility] [place], [facility] [facility][1] 4th Floor, [address], [place] [address] You can go to the following website for more information: [email or web address] Please review the first page of your after-visit summary for a detailed list of medication changes,follow-up instructions and scheduled appointments. Please note that not all appointments will be set up on discharge per case management policy. Please check your my chart if needed and follow up with your appointments if you do not receive a call. If you have any questions after your discharge, please call our office at [phone] or your floor and one of our nurses will call you back. Division of Hospital Medicine [phone] documented in this encounterOSU [facility]03-31-2025 Hospital Discharge instructions* Discharge Instructions* Hoda Moore MD - 02/16/2025 10:21 AM EDT Patient Experience Survey Reminder You may receive a survey in the mail within a few weeks regarding your hospitalization. This helps us to improve the care and services we provide at [facility]. We truly appreciate you taking the [...] performed colonoscopy which showed some stenosis and possibleischemia in the sigmoid colon. EGD did not [...] Fibrosis Pulmonary Hypertension Sarcoidosis Scheduling Please call [phone] to schedule this appointment. Many appointments can also be scheduled online using [employer] by visiting ([email or web address]). The outpatient pulmonary clinics are at the following locations: [facility]; [address] [facility] [address] [facility]; [address] [facility] [address] Outpatient [facility] [place]; [address], [facility] [address] [facility] [place], [address] 4[address], [address], [place] [address] You can go to the following website for more information: [email or web address] Please review the first page of your after-visit summary for a detailed list of medication changes,follow-up instructions and scheduled appointments. Please note that not all appointments will be set up on discharge per case management policy. Please check your my chart if needed and follow up with your appointments if you do not receive a call. If you have any questions after your discharge, please call our office at [phone] or your floor and one of our nurses will call you back. Division of Hospital Medicine [phone] documented in this encounterOS[facility]03-28-[facility]25 History and physical note* Nayeli Casillas MD - 02/13/2025 10:55 AM EDT Hospital Medicine Admission History & Physical Patient: [...] x2 weeks and had chest tube placed fordrainage. Although he has cough, he has not [...] regimen of 2mg M-F, 1mg on Sat andSun. - Continue warfarin - heparin gtt to [...] what seemed to be large pleural effusion onCXR so he advised pt go to the [...] N/A; Surgeon: Ronnie Ferrari MD; [facility]STIC 06/2022 INSERTION CVC TUNNELED [...] Laterality: Right; Surgeon: Kaylin Grider MD; Location: [facility] INTERVENTIONAL RADIOLOGY (VIR) CARDIAC VEIN ELECTRODE PLACEMENT FOR LV PACING N/A 05/26/2016 Laterality: N/A; Surgeon: Yi Cody MD; [facility] EP PACEMAKER PLACEMENT N/A 05/26/2016 Laterality: N/A; Surgeon: Yi Cody MD; Location: [facility] INSERTION CVC TUNNELED Right 05/19/2016 Laterality: Right; Surgeon: Kaylin Grider MD; Location: [facility] INTERVENTIONAL RADIOLOGY (VIR) INSERTION CVC TUNNELED Left 05/18/2016 Laterality: Left; Surgeon: Kaylin Grider MD; [facility] INTER[facility]AL RAD[facility]OLOG[facility] (VIR) PACEMAKER ELECTRODE [...] N/A; Surgeon: Favio Kline MD; [facility] CARDIAC PACEMAKER PLACEMENT 10/20/2010 Implant: Medtronic [id number] Versa CARDIAC PACEMAKER PLACEMENT 08/31/2003 Implant: Medtronic [id number] APPENDECTOMY ND ANES HRT PERICRD SAC&GRT VSLS W/SENIOR DATA MINING ANALYST OXTJ >1MO PO Social History he reports [...] paternal uncle; SuddenCardiac in his paternal uncle. Medications / Allergies Prior to Admission Medications Prescriptions ALPRAZolam 1 MG tablet Sig: Take 1 tablet by mouth at bedtime. Acetaminophen (TYLENOL PO) Sig: Take by mouth. B Oehhtqd-Z-Tudwg Acid (NEPHRO-BALTAZAR PO) Sig: Take 1 tablet [...] morning before breakfast. pantoprazole 40 MG Tab tablet Sig: Take 1 tablet by mouth [...] and cognition Data Review documented in this encounterU [facility]03-28-[facility]25 History and physical note* Nayeli Casillas MD - 02/13/2025 10:55 AM EDT Hospital Medicine Admission History & Physical Patient: [...] x2 weeks and had chest tube placed fordrainage. Although he has cough, he has not [...] regimen of 2mg M-F, 1mg on Sat andSun. - Continue warfarin - heparin gtt to [...] what seemed to be large pleural effusion onCXR so he advised pt go to the ED for further evaluation. CT Chest obtained at [facility] showing moderate sized Left pleural fluid [...] Laterality: N/A; Surgeon: Ronnie Ferrari MD; Location: [facility] EP EGD DIAGNOSTIC 06/2022 INSERTION CVC TUNNELED N/A 10/10/2021 Laterality: N/A; Surgeon: Remy Ferrer MD; Location: [facility] INTERVENTIONAL RADIOLOGY (VIR) INSERTION CVC TUNNELED N/A 10/03/2021 Laterality: N/A; Surgeon: Kaylin Duran II, MD; Location: [facility] INTERVENTIONAL RADIOLOGY (VIR) PLACEMENT PROBE FOR TRANSESOPHAGEAL ECHOCARDIOGRAPHY N/A 09/23/2021 Laterality: N/A; Surgeon: Sadia Nieto MD; Location: [facility] MAIN OR ESS NASAL DIAGNOSTIC [...] Versa CARDIAC PACEMAKER PLACEMENT 08/31/2003 Implant: Medtronic [id number] [address] APPENDECTOMY ND ANES HRT PERICRD SAC&GRT VSLS W/SENIOR DATA MINING ANALYST OXTJ >1MO PO Social History he reports [...] paternal uncle; SuddenCardiac in his paternal uncle. Medications / Allergies Prior to Admission Medications Prescriptions ALPRAZolam 1 MG tablet Sig: Take 1 tablet by mouth at bedtime. Acetaminophen (TYLENOL PO) Sig: Take by mouth. B Piotcag-K-Nihqu Acid (NEPHRO-BALTAZAR PO) Sig: Take 1 tablet [...] and cognition Data Review documented in this [facility]03-28-2025 Discharge summary Author Kaveh Hadley [facility] Note Date/Time February 13, 2025 6:0 7am [facility] Medical Records Department [address] [place] [address] Emergency Department Summary 02/12/25 MR#: [id number] Acct: [id number] Name: CHRISTIAN AMADOR Rep #:[id number] : 1950 74 From: Kaveh Hadley DO [...] on a medication with high iron supplementation. 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 After several hours of waiting callback from physician the patient will ultimately be excepted and transferred down to [facility] by Dr. Weber. They were updated [...] 74.5 H Lymph % (Auto) 13.1 L Rankin % (Auto) 9.3 Eos % (Auto) 1.7 [...] prostate. Correlation with PSA recommended. Reading Location: [facility] Chest CT 02/12/25 23:02 IMPRESSION: 1. Moderate-sized [...] Correlation with prior imaging recommended. Reading Location: [facility] Discharge Plan Triage Chief Complaint: GI Bleed [...] [Jantoven] 1 mg tablet 1 mg PO .satn Protocol: Dose Management Condition: Sunday Dose/Route: 1 [...] DO [Primary Care Provider] - Print Language: Montenegrin Disposition Disposition: DC/Tx to Another Type of HCF What to do if you have Problems For any increased pain, shortness of breath, bleeding, nausea or vomiting, chestpain, or any unexpected problems, contact your Primary Care Provider. Call [facility] ([phone]) or report to the closest Emergency Room. Call 911 if necessary. 02/13/25 0559 <Electronically signed by Kaveh Hadley DO> Cosigner Signature (if applicable): CC: Dr. Castro Ferrara, ~ Signed [facility] Work Phone: 1(571) 367-599803-28-2025 Radiology Diagnostic study [facility]03-28-2025 Radiology Diagnostic study [facility]01-31-2025 Nurse Note* Nursing Notes - Katherine Enciso RN - 12/19/2024 4:55 PM EST Pt is discharge to home at this time to continue with home dialysis, piv removed without issues, discharge education provided including medication picker/puller location, [facility] welding equipment sales representative called to let the agency know that pt has been discharged to home, pt's stated she has also called the home HD nurse to notify them of pt's discharge, this nurse escorted pt in a wheelchair to the [facility], pt's provided ride to home. [facility]01-31-2025 Miscellaneous Notes* Nursing Notes - Katherine Enciso RN - 12/19/2024 4:55 PM EST Pt is discharge to home at this time to continue with home dialysis, piv removed without issues, discharge education provided including medication picker/puller location, [facility] welding equipment sales representative called to let the agency know that pt has been discharged to home, pt's stated she has also called the home HD nurse to notify them of pt's discharge, this nurse [facility], pt's provided ride to home. * Plan of Care - Shikha Johnson RN - 12/19/2024 4:48 PM EST Problem: Hemodialysis Goal: Safe, Effective Therapy Delivery Outcome: Progressing Goal: Effective Tissue Perfusion Outcome: Progressing Goal: Absence of Infection Signs and Symptoms Outcome: Progressing * Nursing Notes - Shikha Johnson RN - [...] Care Unit Transport yes Sending RN/Tech Name [facility] GIO Cognitive/Neuro/Behavioral WDL Cognitive/Neuro/Behavioral WDL WDL Cardiovascular [...] Selected Services Address Phone Fax Patient Preferred [facility] Dialysis [address] [facility] [address] [phone] -- Internal Comment last updated by ELAYNE [...] identified: None Signed, Rosangela MARIE, RN Clinical Legal Office Administrator/ Float * Nursing Notes - Ayana Crouch [...] Yes Name and Contact information: Anna Mcguire [phone] Adult Child(jane), List All Adult Children: Yes Name and Contact information: [phone] Would you like to add additional adult children?: Yes Name and Contact information: Sean Amador [phone] Parent(s) - List All Living Parents: No [...] Is the patient on Anticoagulation? : No [facility] [address], [address] [place] [address] Living Environment and Support System Is the patient from a facility or shelter?: No Living Environment: House Patient Caregiving Responsibilities: [...] care for themselves at home? : No Sequins Winder Does the patient or welding equipment sales representative express financial concerns? : No Signed, Rosangela MARIE, RN Clinical Legal Office Administrator/ Float * Nursing Notes - Farrah Schafer RN - 12/18/2024 1:32 PM EST Received Christian Amador to [place] [phone] from outside ED Transferred to bed without incident. Vital signs stable. Pain level is good. Pt oriented to room, call light, and bed alarms. Bed in low position, siderails elevated x2 to allow for pt mobility and bed alarm set. MCB tablet offered, pt acceptedAssessment complete. documented in this encounterOSU [facility]01-31-2025 Nurse Note* Nursing Notes - Shikha Johnson [...] Care Unit Transport yes Sending RN/Tech Name [facility] GIO Cognitive/Neuro/Behavioral WDL Cognitive/Neuro/Behavioral WDL WDL Cardiovascular [...] Post-Hemodialysis Assessment Report given to Katherine POWERS [facility]01-31-2025 Plan of care note* Plan of Care - Shikha Johnson RN - 12/19/2024 4:48 PM EST Problem: Hemodialysis Goal: Safe, Effective Therapy Delivery Outcome: Progressing Goal: Effective Tissue Perfusion Outcome: Progressing Goal: Absence of Infection Signs and Symptoms Outcome: Progressing [facility]01-31-2025 Nurse Note* Nursing Notes - Rosangela Yousif RN - 12/19/2024 1:39 PM EST Final Discharge Planning and Transportation Final Discharge Planning Discharge Disposition: Home Services at Discharge: Outpatient dialysis/Peritoneal dialysis Selected Continued Care - Admitted Since 12/18/2024 Dialysis/Infusion Service Provider Selected Services Address Phone Fax Patient Preferred [facility] Dialysis [address], [facility] [id number] -- Internal Comment last updated by ELAYNE [...] identified: None Signed, Rosangela MARIE, RN Clinical Legal Office Administrator/ Float [facility] Hospital course Narrative* Rika Castro MD - 12/19/2024 11:50 AM EST Hospital Medicine Discharge Summary Patient: Christian Amador, : 1950, Admission Details Admit Date 12/18/2024 [...] Amador during his recent hospital stay at [facility]. Christian Amador is a 74 y.o. [...] dialyzed for 1 hour, he contacted his Edge Bander Operator and they recommended him to go to the ED, after adm, nephrology consulted, exchanged the port at bedside. He tolerated well. Go for HD today.tolerate well, port works well. His INR at 2.0. called to Dr. Flores's [employer] Donnell, was instructed to just taking his warfarin 2mg and follow up with him. Ok to dc today. BMI: 27.4 Upon discharge the patient's code was Full Code Please see the remainder of this document for relevant data from this admission as well as the patient's discharge instructions and follow-up appointments. An electronic copy of the patient's recordscan be obtained via [facility] [employer] at [email or web address] It has been my pleasure participating [...] Provider Department Center 12/19/2024 12:30 PM DIALYSIS [address], [facility] 06/24/2025 1:30 PM Vaishnavi Fry, CPNGAS CPEAST Castro Ferrara [address] [facility] [phone] Schedule an appointment as soon as possible [...] Commonly known as: COUMADIN documented in this [facility]OSC[facility] Clinic01-31-2025 Nurse Note* Nursing Notes - Ayana Crouch RN - 12/19/2024 11:47 AM EST Hep B Surface Ag (HBsAg) Negative No Reference Range Provided - November 25, 2024 [facility]01-31-2025 History of Present illness Narrative* ELAYNE Guzman - 12/19/2024 10:50 AM EST Care Management Discharge Note Selected Continued Care - Admitted Since 12/18/2024 Dialysis/Infusion Service Provider Selected Services Address Phone Fax Patient Preferred [facility] Dialysis [address] [facility] [address] [phone] -- Internal Comment last updated by ELAYNE Guzman 12/19/2024 1050 Patient does PD at home Patient to resume dialysis at discharge. Please let Air Intelligence Specialist know if patient will need iv antibiotics with dialysis at dc. RN to fax discharge information to dialysis day of discharge : john/avs/dc summary/last dialysis order or flowsheet information. KEV Sanz Retort Furnace Helper * PATRICIA Nina - 12/19/2024 10:16 AM [...] (Oral) Resp 18 Ht 1.702 m (5' 7.01") Wt 79.2 kg (174 lb 8 oz) [...] Component Value Date PTH 283.6 (H) 02/04/2023 [id number] 40.3 09/03/2021 [id number] 10.3 (L) 05/15/2016 CALCIUM 9.4 02/21/2023 PHOSPHORUS [...] this patient! PATRICIA Nina Nephrology Pager # [phone] documented in this encounterOSU [facility]01-31-2025 Procedure note* ROSE Liriano - 12/19/2024 10:48 [...] stage renal disease Indications Indications: broken port [place] Protocol Verbal consent obtained Risks and benefits [...] capped. There were no complications. ROSE Liriano [facility]01-[facility]25 Procedure note* ROSE Liriano - 12/19/2024 10:48 [...] stage renal disease Indications Indications: broken port [place] Protocol Verbal consent obtained Risks and benefits were discussed. Consent given by: patient Patient identity confirmed: verbally with patient time out called Checklist was followed: Yes Procedure Details Hand hygiene used Landmarks identified Skin prep agent completely dried prior to procedure Maximum sterile barriers were used: cap, mask, sterile gown, sterile gloves, and large sterile sheet Location: right [facility] Patient position: Supine Anesthesia: Local anesthesia used: [...] complications. ROSE Liriano documented in this encounterOSU [facility]ma Health01-31-2025 Hospital Discharge instructions* Discharge Instructions* Kayleigh Izquierdo RN - 12/19/2024 9:44 AM EST Patient Experience Survey Reminder You may receive a survey in the mail within a few weeks regarding your hospitalization. This helps us to improve the care and services we provide at [facility]. We truly appreciate you taking the time to fill this out. We particularly welcome any specific comments you may have (good or bad!) regarding [facility]at [facility] so that we may use them to continue to strive towards excellence for our patients. documented in this encounterSt. [facility] Plan of care note* Plan of Care - Rachael Platt RN - 12/19/2024 12:58 AM EST Problem: Adult Inpatient Plan of Care Goal: Plan of Care Review Outcome: Progressing Goal: Patient-Specific Goal (Individualized) Outcome: Progressing Problem: Pain Acute Goal: Optimal Pain Control and Function Outcome: Progressing [facility]01-30-2025 Plan of care note* Plan of Care [...] Optimal Eating/Swallowing without Aspiration Outcome: Progressing [facility] Nurse Note* Nursing Notes - Rosangela Yousif [...] Yes Name and Contact information: Anna Mcguire [phone] Adult Child(jnae), List All Adult Children: Yes Name and Contact information: Alina Guillen [phone] Would you like to add additional adult children?: Yes Name and Contact information: Sean Amador [phone] Parent(s) - List All Living Parents: No [...] Is the patient on Anticoagulation? : No [facility] [address] [place] [address], [address] [place] [address] Living Environment and Support System Is the patient from a facility or shelter?: No Living Environment: House Patient Caregiving Responsibilities: Self, Spouse Patient-identified caregiver/support network: Family Who does the patient identify as a teachable caregiver(s)?: Spouse or Partner Services Does the patient use a home health or hospice agency?: No Current with dialysis?: Yes Dialysis Overview Updated?: Yes Does the patient use any community programs or services?: No Does patient use DME? : gial perera DME provider name and contact: unknown [...] care for themselves at home? : No Sequins Winder Does the patient or welding equipment sales representative express financial concerns? : No Signed, Rosangela MARIE, RN Clinical Legal Office Administrator/ Float [facility]01-30-2025 Consult note* Trina Carmelina Graham APRN-SURGICAL SALES REPRESENTATIVE - 12/18/2024 2:33 PM ESTAssociated Order(s): IP CONSULT TO NEPHROLOGY [facility] NEPHROLOGY INPATIENT CONSULTATION NOTE I saw Christian Amador at the [facility] on 12/18/2024. Reason for Consultation: ESRD Evaluation [...] his TDC during dialysis on Sunday. His water resource specialist encouraged him to be evaluated in the ED, where it was recommended he apply tape to the crack as they were unable to repair/replace the catheter. This did not resolve the issue. He was transferred to [facility] for further intervention. His last dialysis session [...] on // under the care of Dr. Bruce Calderon Dialysis Vintage: 2020 Access History: RIJ [...] Laterality: N/A; Surgeon: Ronnie Ferrari MD; Location: [facility] EP EGD DIAGNOSTIC 06/2022 INSERTION CVC TUNNELED N/A 10/10/2021 Laterality: N/A; Surgeon: Remy Ferrer MD; Location: [facility] INTERVENTIONAL RADIOLOGY (VIR) INSERTION CVC TUNNELED N/A 10/03/2021 Laterality: N/A; Surgeon: Kaylin Duran II, MD; Location: [facility] INTERVENTIONAL RADIOLOGY (VIR) PLACEMENT PROBE FOR TRANSESOPHAGEAL ECHOCARDIOGRAPHY N/A 09/23/2021 Laterality: N/A; Surgeon: Sadia Nieto MD; Location: [facility] MAIN OR ESS NASAL DIAGNOSTIC Bilateral 09/20/2021 Laterality: Bilateral; Surgeon: You Wise MD; Location: [facility] MAIN OR ESS SPHENOID SINUSOTOMY WITH REMOVAL TISSUE Right 09/20/2021 Laterality: Right; Surgeon: You Wise MD; [facility] TOTAL ETHMOIDECTOMY Right 09/20/2021 Laterality: Right; Surgeon: You Wise MD; [facility] MAIN OR REMOVAL CVC TUNNELED Right 07/07/2016 Laterality: Right; Surgeon: Kaylin Grider MD; Location: [facility] INTERVENTIONAL RADIOLOGY (VIR) CARDIAC VEIN [...] Versa CARDIAC PACEMAKER PLACEMENT 08/31/2003 Implant: Medtronic [id number] APPENDECTOMY ND ANES HRT PERICRD SAC&GRT VSLS W/SENIOR DATA MINING ANALYST OXTJ >1MO PO Scheduled Meds: ALPRAZolam 1 [...] (Oral) Resp 16 Ht 1.702 m (5' 7") Wt 79.2 kg (174 lb 8 oz) [...] intact Skin: No obvious rash Dialysis Access: RIJ TD Relevant Data: Lab Results Component Value Date [...] this patient! PATRICIA Nina Nephrology Pager # [phone] [facility]01-30-2025 Consult note* PATRICIA Nina - 12/18/2024 2:33 PM ESTAssociated Order(s): IP CONSULT TO NEPHROLOGY [facility] NEPHROLOGY INPATIENT CONSULTATION NOTE I saw Christian Amador at the [facility] on 12/18/2024. Reason for Consultation: ESRD Evaluation [...] his TDC during dialysis on Sunday. His water resource specialist encouraged him to be evaluated in the ED, where it was recommended he apply tape to the crack as they were unable to repair/replace the catheter. This did not resolve the issue. He was transferred to [facility] for further intervention. His last dialysis session [...] on // under the care of Dr. Bruce Calderon Dialysis Vintage: 2020 Access History: [facility] Residual Kidney Function: Anuric Past Medical [...] Laterality: N/A; Surgeon: Ronnie Ferrari MD; Location: [facility] EP EGD DIAGNOSTIC 06/2022 INSERTION CVC TUNNELED N/A 10/10/2021 Laterality: N/A; Surgeon: Remy Ferrer MD; Location: [facility] INTERVENTIONAL RADIOLOGY (VIR) INSERTION CVC TUNNELED N/A 10/03/2021 Laterality: N/A; Surgeon: Kaylin Duran II, MD; Location: [facility] INTERVENTIONAL RADIOLOGY (VIR) PLACEMENT PROBE FOR TRANSESOPHAGEAL ECHOCARDIOGRAPHY N/A 09/23/2021 Laterality: N/A; Surgeon: Sadia Nieto MD; Location: [facility] MAIN OR ESS NASAL DIAGNOSTIC [...] Versa CARDIAC PACEMAKER PLACEMENT 08/31/2003 Implant: Medtronic [id number] [address] APPENDECTOMY ND ANES HRT PERICRD SAC&GRT VSLS W/SENIOR DATA MINING ANALYST OXTJ >1MO PO Scheduled Meds: ALPRAZolam 1 [...] (Oral) Resp 16 Ht 1.702 m (5' 7") Wt 79.2 kg (174 lb 8 oz) [...] intact Skin: No obvious rash Dialysis Access: [facility] Relevant Data: Lab Results Component Value [...] the care of this patient! Trina Graham APRN-[facility] Nephrology Pager # [phone] documented in this encounterOSU [facility]ma Health01-30-2025 History and physical note* Malcom Araiza MD - 12/18/2024 2:03 PM EST Images from the original note were not included. Hospital Medicine Admission History & Physical Patient: Christian Amador, 1950, [id number] Physician: Malcom Fuller MD, Attending Physician, Pager #[phone], [facility] service Date of face to [...] the ED, from ED he was admitted [facility]. Consult Nephrology. Check labs. - Renal [...] male that has been admitted to [facility]. Christian Amador is a 74 y.o. male [...] [facility] He denied [...] Laterality: N/A; Surgeon: Ronnie Ferrari MD; Location: [facility] EP EGD DIAGNOSTIC 06/2022 INSERTION CVC TUNNELED N/A 10/10/2021 Laterality: N/A; Surgeon: Remy Ferrer MD; Location: [facility] INTERVENTIONAL RADIOLOGY (VIR) INSERTION CVC TUNNELED N/A 10/03/2021 Laterality: N/A; Surgeon: Kaylin Duran II, MD; Location: [facility] INTERVENTIONAL RADIOLOGY (VIR) PLACEMENT PROBE FOR TRANSESOPHAGEAL ECHOCARDIOGRAPHY N/A 09/23/2021 Laterality: N/A; Surgeon: Sadia Nieto MD; Location: [facility] MAIN OR ESS NASAL DIAGNOSTIC Bilateral [...] LV PACING N/A 08/07/2013 Laterality: N/A; Surgeon: Favoi Kline MD; [facility] EP PACEMAKER ELECTRODE REMOVAL 08/07/2013 Surgeon: Favio Kline MD; Location: [facility] EP AV NODE ABLATION N/A 02/26/2013 Laterality: N/A; Surgeon: Favio Kline MD; Location: [facility] CARDIAC PACEMAKER PLACEMENT 10/20/2010 Implant: Medtronic [id number] Versa CARDIAC PACEMAKER PLACEMENT 08/31/2003 Implant: Medtronic [id number] [address] DR APPENDECTOMY ND ANES HRT PERICRD SAC&GRT VSLS W/SENIOR DATA MINING ANALYST OXTJ >1MO PO Social History Social History [...] Yes No Sig: Take by mouth. B Elivcwv-L-Pbfqa Acid (NEPHRO-BALTAZAR PO) Yes No Sig: Take [...] laboratory and imaging studies. Malcom Fuller MD Elevator Constructor Electric-Clinical, Division of Hospital Medicine [facility] 12/18/2024 2:03 PM [facility]01-30-2025 History and physical note* Malcom Araiza MD - 12/18/2024 2:03 PM EST Images from the original note were not included. Hospital Medicine Admission History & Physical Patient: Christian Amador, 1950, [id number] Physician: Malcom Fuller MD, Attending Physician, Pager #[phone], [facility] service Date of face to [...] the ED, from ED he was admitted [facility]. Consult Nephrology. Check labs. - Renal [...] male that has been admitted to [facility]. Christian Amador is a 74 y.o. male [...] [facility] [...] Laterality: N/A; Surgeon: Remy Ferrer MD; Location: [facility] INTERVENTIONAL RADIOLOGY (VIR) INSERTION CVC TUNNELED N/A 10/03/2021 Laterality: N/A; Surgeon: Kaylin Duran II, MD; Location: [facility] INTERVENTIONAL RADIOLOGY (VIR) PLACEMENT PROBE FOR TRANSESOPHAGEAL ECHOCARDIOGRAPHY N/A 09/23/2021 Laterality: N/A; Surgeon: Sadia Nieto MD; Location[facility] MAIN OR ESS NASAL DIAGNOSTIC Bilateral 09/20/2021 Laterality: Bilateral; Surgeon: You Wise MD; [facility] SPHENOID SINUSOTOMY WITH REMOVAL TISSUE Right 09/20/2021 Laterality: Right; Surgeon: You Wise MD; Location[facility] MAIN OR ESS TOTAL ETHMOIDECTOMY Right 09/20/2021 Laterality: Right; Surgeon: You Wise MD; Location: [facility] MAIN OR REMOVAL CVC TUNNELED Right 07/07/2016 Laterality: Right; Surgeon: Kaylin Grider MD; Location: [facility] INTERVENTIONAL RADIOLOGY (VIR) CARDIAC VEIN ELECTRODE PLACEMENT FOR LV PACING N/A 05/26/2016 Laterality: N/A; Surgeon: Yi Cody MD; Location: [facility] EP PACEMAKER PLACEMENT N/A 05/26/2016 Laterality: N/A; Surgeon: Yi Cody MD; Location: [facility] EP INSERTION CVC TUNNELED Right 05/19/2016 Laterality: Right; Surgeon: Kaylin Grider MD; Location: [facility] INTERVENTIONAL RADIOLOGY (VIR) INSERTION CVC TUNNELED Left 05/18/2016 Laterality: Left; Surgeon: Kaylin Grider MD; Location: [facility] INTERVENTIONAL RADIOLOGY (VIR) PACEMAKER ELECTRODE REMOVAL N/A 05/08/2016 Laterality: N/A; Surgeon: Luigi Mart MD; Location: [facility] EP COLONOSCOPY DIAGNOSTIC N/A 03/20/2016 Laterality: N/A; Surgeon: Jeremiah García MD; Location: [facility] ENDOSCOPY EP IMPLANT BIVENTRICULAR PACEMAKER TOTAL 08/07/2013 3 leads CARDIAC VEIN ELECTRODE PLACEMENT FOR LV PACING N/A 08/07/2013 Laterality: N/A; Surgeon: Favio Kline MD; Location: [facility] EP PACEMAKER ELECTRODE REMOVAL 08/07/2013 Surgeon: Favio Kline MD; Location: [facility] [place] EP AV NODE ABLATION N/A 02/26/2013 Laterality: N/A; Surgeon: Favio Kline MD; Location: [facility] EP CARDIAC PACEMAKER PLACEMENT 10/20/2010 Implant: Medtronic [id number] Versa CARDIAC PACEMAKER PLACEMENT 08/31/2003 Implant: Medtronic [id number] [address] APPENDECTOMY ND ANES HRT PERICRD SAC&GRT VSLS W/SENIOR DATA MINING ANALYST OXTJ >1MO PO Social History Social History [...] Yes No Sig: Take by mouth. B Lkrnkoc-C-Btupr Acid (NEPHRO-BALTAZAR PO) Yes No Sig: Take [...] laboratory and imaging studies. Malcom Fuller MD Elevator Constructor Electric-Clinical, Division of Hospital Medicine [facility] 12/18/2024 2:03 PM [facility] Nurse Note* Nursing Notes - Farrah Schafer RN - 12/18/2024 1:32 PM EST Received Christian Amador to [place] 10 from outside ED Transferred to bed without incident. Vital signs stable. Pain level is good. Pt oriented to room, call light, and bed alarms. Bed in low position, siderails elevated x2 to allow for pt mobility and bed alarm set. MCB tablet offered, pt acceptedAssessment complete. [facility]01-07-2025 Evaluation note* Diagnosis Onset Date Resolution Status Admit Date Essential tremor chronic November 25, 2024 1:45pm Hyperammonemia chronic November 1:45pm Mild cognitive impairment chronic November 25, 2024 1:45pm Polyneuropathy chronic November 1:45pm Syncope resolved November 25 1:45pm Biventricular cardiac pacemaker in situ May, acute January 28 10:02am Cardiomyopathy chronic January 10:02am History of cardiac radiofrequency ablation (RFA) [facility] 2024 10:02am Biventricular cardiac pacemaker in situ May, acute January 28 10:03am History of mitral valve repair August, acute January 28, 2025 10:03am Benign essential hypertension chroni c January 28, 2025 10:03am CAD (coronary artery disease) chroni c January 28, 2025 10:03am Cardiomyopathy chronic January 10:03am History of aortic valve replacement 2002January 28, 2025 10:03am History of cardiac radiofrequency ablation (RFA) chronic [facility] 2024 10:03am HLD (hyperlipidemia) [facility] 2024 10:03am Other specified cardiac dysrhythmias January 28, 2025 10:03am [facility] Work Phone: 1(273) 828-223212-04-2024 History of Present illness Narrative* Kelby Chance, TANK HOUSE OPERATOR-SURGICAL SALES REPRESENTATIVE - 10/22/2024 11:00 AM EST Images from [...] ordered. His currently on iHD; schedule is ,, and Sunday. [...] Laterality: N/A; Surgeon: Ronnie Ferrari MD; Location: [facility] EP EGD DIAGNOSTIC 06/2022 INSERTION CVC TUNNELED N/A 10/10/2021 Laterality: N/A; Surgeon: Remy Ferrer MD; Location: [facility] INTERVENTIONAL RADIOLOGY (VIR) INSERTION CVC TUNNELED N/A 10/03/2021 Laterality: N/A; Surgeon: Kaylin Duran II, MD; Location: [facility] INTERVENTIONAL RADIOLOGY (VIR) PLACEMENT PROBE FOR TRANSESOPHAGEAL ECHOCARDIOGRAPHY N/A 09/23/2021 Laterality: N/A; Surgeon: Sadia Nieto MD; Location: [facility] MAIN OR ESS NASAL DIAGNOSTIC Bilateral 09/20/2021 Laterality: Bilateral; Surgeon: You Wise MD; [facility] SPHENOID SINUSOTOMY WITH REMOVAL TISSUE Right 09/20/2021 Laterality: Right; Surgeon: You Wise MD; Location[facility] MAIN OR ESS TOTAL ETHMOIDECTOMY Right 09/20/2021 Laterality: Right; Surgeon: You Wise MD; Location: [facility] MAIN OR REMOVAL CVC TUNNELED Right 07/07/2016 Laterality: Right; Surgeon: Kaylin Grider MD; Location: [facility] INTERVENTIONAL RADIOLOGY (VIR) CARDIAC VEIN [...] Versa CARDIAC PACEMAKER PLACEMENT 08/31/2003 Implant: Medtronic [id number] [address] APPENDECTOMY ND ANES HRT PERICRD SAC&GRT VSLS W/SENIOR DATA MINING ANALYST OXTJ >1MO PO Family History Problem Relation [...] 1 tablet by mouth at bedtime. B Hevycto-Y-Jmnuf Acid (NEPHRO-BALTAZAR PO) Take 1 tablet by [...] BP Position: Sitting) Ht 1.702 m (5' 7") Wt 78.9 kg (174 lb) BMI 27.25 [...] participate in the care of Christian Amador. Kelby Chance APRN-SURGICAL SALES REPRESENTATIVE Hepatology Nurse Practitioner Division of Gastroenterology, Hepatology, and Nutrition documented in this [facility]12-04-2024 Instructions* Patient Instructions* PATRICIA Flower - 10/22/2024 11:00 AM EST Labs today Schedule your ultrasound for 12/2024 locally [facility] History of Present illness Narrative* Vaishnavi Fry DO - 04/16/2024 10:30 AM EDT -Referring Provider [...] Laterality: N/A; Surgeon: Ronnie Ferrari MD; Location: [facility] EP EGD DIAGNOSTIC 06/2022 INSERTION CVC TUNNELED N/A 10/10/2021 Laterality: N/A; Surgeon: Remy Ferrer MD; Location: [facility] INTERVENTIONAL RADIOLOGY (VIR) INSERTION CVC TUNNELED N/A 10/03/2021 Laterality: N/A; Surgeon: Kaylin Duran II, MD; Location: [facility] INTERVENTIONAL RADIOLOGY (VIR) PLACEMENT PROBE FOR TRANSESOPHAGEAL ECHOCARDIOGRAPHY N/A 09/23/2021 Laterality: N/A; Surgeon: Sadia Nieto MD; Location: [facility] MAIN OR ESS NASAL DIAGNOSTIC Bilateral 09/20/2021 Laterality: Bilateral; Surgeon: You Wise MD; [facility] SPHENOID SINUSOTOMY WITH REMOVAL TISSUE Right 09/20/2021 Laterality: Right; Surgeon: You Wise MD; [facility] TOTAL ETHMOIDECTOMY Right [...] Versa CARDIAC PACEMAKER PLACEMENT 08/31/2003 Implant: Medtronic [id number] [address] APPENDECTOMY ND ANES HRT PERICRD SAC&GRT VSLS W/SENIOR DATA MINING ANALYST 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 ALPRAZolam 1 MG tablet Take 1 tablet by mouth at bedtime. B Sjgrpwu-A-Afdnn Acid (NEPHRO-BALTAZAR PO) Take 1 tablet by [...] (P) 24, height (P) 1.702 m (5' 7"), weight (P) 78.9 kg (174 lb), SpO2 [...] at 71 bpm. - Mild TR, mild ND. - RVSP estimated 42 mmHg. - Compared [...] US confirmed not to have HCC--completed at [facility]) and ordered today to complete locally. [...] encouraged him to review this with his Edge Bander Operator to see if dose needs adjustment. - For follow up, he will return to clinic in 6months with Kelby Chance and with me in 1 year. Thank you for allowing us to participate in the care of Christian Amador. Vaishnavi Fry DO Elevator Constructor Electric of Clinical Medicine Division of Gastroenterology, Hepatology and Nutrition [facility] Pager: [phone] * Brenda Arana LPN - 04/16/2024 10:30 AM EDT Patient verified name and date of with this LABOR RELATIONS SPECIALIST. Patient is accompanied by his today. [facility] Instructions* Patient Instructions* Vaishnavi Fry DO - 04/16/2024 10:30 AM EDT Follow up in 6months with Kelby Chance Print liver ultrasound to complete around 06/2024 Print labs to complete with next blood draw documented in this [facility] Nurse Note* Nursing Notes - Enrico Bateman [...] radial pulses. Ice pack applied to site. [facility]05-15-2024 Miscellaneous Notes* Nursing Notes - Enrico Bateman [...] monitor shows Vpaced . documented in this [facility]OS[facility]24 Hospital Discharge instructions* Discharge Instr - Activity* [...] Where can you learn more? Go to [email or web address]/osumychart. * Discharge Instr - Wound Care* PATRICIA Bunch - 04/02/2024 11:04 AM EDT Your [...] Everywhere. * [facility] ([facility]) (Montenegrin) documented [facility] History and physical note* PATRICIA Bunch - 04/02/2024 8:15 AM EDT Chief Complaint Device Change Out HPI Christian Amador is a 74 y.o. 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 He has undergone DIALYSIS TECH-P implant in the past, reportedly by after [...] Laterality: N/A; Surgeon: Remy Ferrer MD; Location: [facility] INTERVENTIONAL RADIOLOGY (VIR) INSERTION CVC TUNNELED N/A 10/03/2021 Laterality: N/A; Surgeon: Kaylin Duran II, MD; Location: [facility] INTERVENTIONAL RADIOLOGY (VIR) PLACEMENT PROBE [...] Laterality: Left; Surgeon: Kaylin Grider MD; Location: [facility] INTERVENTIONAL RADIOLOGY (VIR) PACEMAKER ELECTRODE [...] Versa CARDIAC PACEMAKER PLACEMENT 08/31/2003 Implant: Medtronic [id number] [address] APPENDECTOMY ND ANESTH,OPEN HEART SURGERY+PUMP Medications Prior to Admission Medication Sig Dispense Refill Last Dose ALPRAZolam 1 MG tablet Take 1 tablet by mouth at bedtime. 04/01/2024 B Unxslky-R-Jsfvz Acid (NEPHRO-BALTAZAR PO) Take 1 tablet by [...] When was the last dose taken. 04/01/2024 [id number]- Vasc score: 9 (Vrt-YXV-KLL-CHF-HTN-DVT) Prior Cardiac testing: Results for orders placed [...] (Oral) Resp 16 Ht 1.702 m (5' 7") Wt 76.5 kg (168 lb 10.4 oz) [...] change out with routine post procedure orders. [facility] Work Phone: 1(352) 498-168805-15-2024 History and physical note* Miracle Parks, AILIN-SURGICAL SALES REPRESENTATIVE - 04/02/2024 8:15 AM EDT Chief Complaint Device Change Out HPI Christian Amador is a 74 y.o. 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 He has undergone DIALYSIS TECH-P implant in the past, reportedly by after [...] TUNNELED N/A 10/10/2021 Laterality: N/A; Surgeon: Remy eFrrer MD; Location: [facility] INTERVENTIONAL RADIOLOGY (VIR) INSERTION CVC TUNNELED N/A 10/03/2021 Laterality: N/A; Surgeon: Kaylin Duran II, MD; Location: [facility] INTERVENTIONAL RADIOLOGY (VIR) PLACEMENT PROBE [...] Versa CARDIAC PACEMAKER PLACEMENT 08/31/2003 Implant: Medtronic [id number] [address] APPENDECTOMY ND ANESTH,OPEN HEART SURGERY+PUMP Medications Prior to Admission Medication Sig Dispense Refill Last Dose ALPRAZolam 1 MG tablet Take 1 tablet by mouth at bedtime. 04/01/2024 B Rjsowue-I-Emxkh Acid (NEPHRO-BALTAZAR PO) Take 1 tablet by [...] When was the last dose taken. 04/01/2024 [id number]- Vasc score: 9 (Xrk-WWJ-DIR-CHF-HTN-DVT) Prior Cardiac testing: Results for orders placed [...] (Oral) Resp 16 Ht 1.702 m (5' 7") Wt 76.5 kg (168 lb 10.4 oz) [...] routine post procedure orders. documented in this [facility]OS[facility] Nurse Note* Nursing Notes - Enrico Bateman RN - 04/02/2024 8:06 AM EDT Pt arrives to room 2446 in [facility] for ICD c/o. ECG completed. IV started in R arm. Labs drawn and sent. 0.9 NS IVF initiated @ 10mL/ hr per pump. Pt prep completed. Valuables given to spouse. Clothes secured in room. Questions about procedure answered. Family brought to bedside. Bed in low position, side rail up x2 and call light given to pt. Tele monitor shows Vpaced . [facility] History of Present illness Narrative* Alina Kulkarni [...] intact. Adequate hemostasis achieved. [facility] History of Present illness Narrative* Kelby Chance, TANK HOUSE OPERATOR-SURGICAL SALES REPRESENTATIVE - 12/05/2023 10:00 AM EST CLINICAL CARE TEAM: -Referring Provider for today's consult: Castro Ferrara DO -Primary Care Provider: Castro Ferrara HISTORY OF [...] liver. NICOLAS was with Dr. Fry 07/13/2023. Christina Amador is doing well. Denies any recent [...] N/A; Surgeon: Kaylin Duran II, MD; Location: [facility] INTERVENTIONAL RADIOLOGY (VIR) PLACEMENT PROBE [...] Laterality: Right; Surgeon: Kaylin Grider MD; Location: [facility] INTERVENTIONAL RADIOLOGY (VIR) CARDIAC VEIN ELECTRODE PLACEMENT FOR LV PACING N/A 05/26/2016 Laterality: N/A; Surgeon: Yi Cody MD; Location: [facility] EP PACEMAKER PLACEMENT N/A 05/26/2016 Laterality: N/A; Surgeon: Yi Cody MD; Location: [facility] EP INSERTION CVC TUNNELED Right 05/19/2016 Laterality: Right; Surgeon: Kaylin Grider MD; Location: [facility] INTERVENTIONAL RADIOLOGY (VIR) INSERTION CVC TUNNELED Left 05/18/2016 Laterality: Left; Surgeon: Kaylin Grider MD; Location: [facility] INTERVENTIONAL RADIOLOGY (VIR) PACEMAKER ELECTRODE [...] Versa CARDIAC PACEMAKER PLACEMENT 08/31/2003 Implant: Medtronic [id number] APPENDECTOMY ND ANESTH,OPEN HEART SURGERY+PUMP Family History Problem Relation [...] At bedtime as needed for Anxiety. B Kztkvxh-D-Cisxd Acid (NEPHRO-BALTAZAR PO) Take by mouth. Cyclobenzaprine [...] Sitting) Pulse 74 Ht 1.702 m (5' 7") Wt 77.1 kg (170 lb) SpO2 93% [...] Gastroenterology, Hepatology, and Nutrition documented in this [facility]01-17-2024 Instructions* Patient Instructions* PATRICIA Flower - 12/05/2023 10:00 AM EST Labs today Schedule your ultrasound locally for 01/2024 Return to clinic in 4 months documented in this [facility]11-15-2023 Telephone encounter Note* Telephone Encounter - [...] clinic in 4 months with Kelby Chance[address] [facility] Miscellaneous Notes* Telephone Encounter - Tayler Pineda [...] Leia Chatman - 10/03/2023 10:40 AM EST DONYN REFILL REQUEST Provider: Dr Fry Name of [...] supply PREFERRED PHARMACY IS ATTACHED TO ENCOUNTER [facility] documented in this [facility] Telephone encounter Note* Telephone Encounter - Leia Chatman - 10/03/2023 10:40 AM EST DONYN REFILL REQUEST Provider: Dr Fry Name of [...] supply PREFERRED PHARMACY IS ATTACHED TO ENCOUNTER [employer] [facility]08-[facility] History of Present illness Narrative* Vaishnavi Fry DO - 07/13/2023 9:00 AM EDT -Referring Provider for today's consult: Vaishnavi Fry DO -Primary Care Provider: Castro Ferrara History of Present Illness Christian Amador is a 73 y.o. male who presents to the [facility] today for consultation regarding [...] Laterality: N/A; Surgeon: Remy Ferrer MD; Location: [facility] INTERVENTIONAL RADIOLOGY (VIR) INSERTION CVC TUNNELED N/A 10/03/2021 Laterality: N/A; Surgeon: Kaylin Duran II, MD; Location: [facility] INTERVENTIONAL RADIOLOGY (VIR) PLACEMENT PROBE FOR TRANSESOPHAGEAL ECHOCARDIOGRAPHY N/A 09/23/2021 Laterality: N/A; Surgeon: Sadia Nieto MD; Location: [facility] MAIN OR ESS NASAL DIAGNOSTIC Bilateral 09/20/2021 Laterality: Bilateral; Surgeon: You Wise MD; Location: [facility] MAIN OR ESS SPHENOID SINUSOTOMY WITH REMOVAL TISSUE Right 09/20/2021 Laterality: Right; Surgeon: You Wise MD; Location: [facility] MAIN OR ESS TOTAL ETHMOIDECTOMY Right 09/20/2021 Laterality: Right; Surgeon: You Wise MD; [facility] CVC TUNNELED Right 07/07/2016 Laterality: Right; Surgeon: Kaylin Grider MD; Location: [facility] INTERVENTIONAL RADIOLOGY (VIR) CARDIAC VEIN ELECTRODE PLACEMENT FOR LV PACING N/A 05/26/2016 Laterality: N/A; Surgeon: Yi Cody MD; Location: [facility] EP PACEMAKER PLACEMENT N/A 05/26/2016 Laterality: N/A; Surgeon: Yi Cody MD; Location: [facility] EP INSERTION CVC TUNNELED Right 05/19/2016 Laterality: Right; Surgeon: Kaylin Grider MD; Location: [facility] INTERVENTIONAL RADIOLOGY (VIR) INSERTION CVC TUNNELED Left 05/18/2016 Laterality: Left; Surgeon: Kaylin Grider MD; Location: [facility] INTERVENTIONAL RADIOLOGY (VIR) PACEMAKER ELECTRODE REMOVAL N/A 05/08/2016 Laterality: N/A; Surgeon: Luigi Mart MD; Location: [facility] EP COLONOSCOPY DIAGNOSTIC N/A 03/20/2016 Laterality: N/A; Surgeon: Jeremiah García MD; Location: [facility] ENDOSCOPY EP IMPLANT BIVENTRICULAR PACEMAKER [...] Versa CARDIAC PACEMAKER PLACEMENT 08/31/2003 Implant: Medtronic [id number] APPENDECTOMY ND ANESTH,OPEN HEART SURGERY+PUMP Home Medications Current Outpatient Medications Medication Sig ALPRAZolam 0.5 MG tablet Take 1 tablet by mouth At bedtime as needed for Anxiety. B Arolaib-X-Trqpe Acid (NEPHRO-BALTAZAR PO) Take by mouth. Cyclobenzaprine [...] temperature source Temporal, height 1.702 m (5' 7"), weight 79.4 kg (175 lb). Wt Readings [...] care of Christian Amador. Vaishnavi Fry DO Elevator Constructor Electric of Clinical Medicine Division of Gastroenterology, Hepatology and Nutrition [facility] Pager: [phone] * Gianfrancokaci Morgan - 07/13/2023 9:00 AM EDT This Reed Repairer verified the patients name and date of . documented in this encounterOSU [facility]05-11-[address] Wen [facility] March 29, 2023 7:23pm Note Date/Time March 29, 2023 7:23p [facility] Medical Records Department [address] [place] [address] Progress Note - Surgery 03/29/231919 MR#: [id number] Acct: [id number] Name: CHRISTIAN AMADOR Rep #:[id number] : 1950 73 From: Ford Wen MD [...] (Auto) 66.0, Lymph % (Auto) 16.2 L, Rankin % (Auto) 11.1 H, Eos % (Auto) [...] (if applicable): CC: ~ Signed [facility] Work Phone: 1(311) 147-557905-11-[address] Palafox [facility] March 29, 2023 9:10pm Note Date/Time March 29, 2023 5:21p m [facility] Medical Records Department [address] [place] [address] Emergency Department Summary 03/29/23 MR#: [id number] Acct: [id number] Name: CHRISTIAN AMADOR Rep #:[id number] : 1950 73 From: Matt Drake PCP: Dr. 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 ? [facility] Narrative: Patient had oozing from a suture [...] (Auto) 66.0 Lymph % (Auto) 16.2 L Rankin % (Auto) 11.1 H Eos % (Auto) [...] your Primary Care Provider. Call [facility] ([phone]) or report to the closest Emergency Room. Call 911 if necessary. 03/29/232109 <Electronically signed by Matt Palafox DO> Cosigner Signature (if applicable): CC: Dr. Castro Ferrara DO ~ Signed [facility] Work Phone: 1(214) 462-637705-11-[address] Wen [facility] March 29, 2023 11:15am Note Date/Time March 29, 2023 11:15 am [facility] Medical Records Department [address] [place], [place] [address] [place] [address] Instructions for Home/Discharge Instructions 03/29/23 1112 MR#: [id number] Acct: [id number] Name: CHRISTIAN AMADOR Rep #:[id number] : 1950 73 From: Ford Wen MD PCP: Dr. Castro Ferrara DO Status:REG SDC Discharge Instructions Diet Discharge Diet: Renal Diet [...] MD When: Approximately 2 to 3 months [phone] Test Results: Test results from this visit [...] Wen MD>Ford Wen MD CC: Dr. Castro Ferrara DO ~ Signed [facility] Work Phone: 1(267) 366-501205-11-2023 History and physical note Author Dr. Wen [facility] March 29, 2023 9:04am Note Date/Time March 29, 2023 8:51a m [facility] Medical Records Department [address] [place] [address] History & Physical Exam 03/29/23 0850 MR#: [id number] Acct: [id number] Name: CHRISTIAN AMADOR Rep #:[id number] : 1950 73 From: Ford Wen MD PCP: Dr. 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 There is risk in this and that he already had central venous stenosis at the time of the placement of this catheter 2 years ago Thirdly we could refer to a tertiary center and allow them down at [facility] to either repair the catheter or attempt replacement. He has had an opportunity to ask and have questions answered.? He and his will try to decide how they would like to approach this.? Tentatively I have himscheduled in our Health Clinician for potential intervention on March 29, 2023.? As noted we are attempting to see if we can get a repair kit for this style the catheter as this is not the catheter that we will utilize locally. Copy: [facility] Ford Wen M.D., F.A.C.S. The patient had [...] Dr. Ford Wen MD~ Signed [facility] Work Phone: 1(201) 693-941605-11-2023 Procedure [facility] 03-28-2023 History of Present illness Narrative* Bouchra [...] not interested in this. [facility] Centeno [facility] January 18, 2023 4:50pm Note Date/Time January 18, 2023 9:20 am [facility] Medical Records Department [address] [place] [id number] Progress Note - Hospitalist 01/18/23919 MR#: [id number] Acct: [id number] Name: CHRISTIAN AMADOR Rep #:[id number] : 1950 72 From: Mimi eCnteno MD PCP: Dr. Castro Ferrara, DO Status:ADM IN Location: [place] [address] Reason for Visit Reason for Visit: Diagnoses [...] (Auto) 61.7, Lymph % (Auto) 18.1 L, Rankin % (Auto) 12.9 H, Eos % (Auto) [...] positive -Status post endoscopy with Dr. Zheng 01/18 which showed red blood in the gastricbody, [...] stage II diastolic dysfunction -Follows with Dr. Moodispaw on an outpatient basis -Monitor respiratory and [...] documentation, 30minutes Charges/Coding Visit Charges Inpatient E&M: 01320 Subs Hosp L2 01/18/23 1631 <Electronically signed [...] (if applicable): cc: ~* Signed [facility] Work Phone: 1(838) 808-892203-02-2023 Consult note Author Kody Zheng [facility] January 18, 2023 11:55am Note Date/Time January 18, 2023 11:5 5am [facility] Medical Records Department [address] [place] [address] Consultation - GI 01/17/23 2330 MR#: [id number] Acct: [id number] Name: CHRISTIAN AMADOR Rep #:[id number] : 1950 72 From: Kody Zheng DO PCP: Dr. Castro Ferrara, DO Status:ADM [facility] H[facility] Consult Data Date of Consult: 01/17/23 [...] liver failure and sees a specialist at [facility].? 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 [facility] Medical History Abnormal results of thyroid function studies Airway intubation performed without difficulty Anemia in chronic kidney disease Atherosclerotic heart disease of [place] coronary artery without angina pectoris Atrial flutter [...] Hyperthyroidism Hypothyroidism (acquired) Infectious endocarditis Iron deficiency long term care pharmacist (current) use of 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 Mild cognitive impairment [...] (Auto) 61.7, Lymph % (Auto) 18.1 L, Rankin % (Auto) 12.9 H, Eos % (Auto) [...] and mortality. Charges/Coding Visit Charges Inpatient E&M: 30269 Init Hosp L3 01/18/23 1155 <Electronically signed by Kody Zheng DO> Cosigner Signature (if applicable): CC: Dr. Bruce Calderon DO; Dr. Karthikeyan Rothman MD; Dr. Castro Ferrara DO; Kody Zheng DO~ Signed [facility] Work Phone: 1(640) 812-553703-02-2023 Procedure [facility] 01-18-2023 Procedure [facility]03-02-2023 History and physical note Author Dr. Rothman [facility] January 18, 2023 5:12am Note Date/Time January 17, 2023 9:38 pm [facility] Medical Records Department [address] [place] [address] H&P Exam - Hospitalist 01/17/232137 MR#: [id number] Acct: [id number] Name: CHRISTIAN AMADOR Rep #:[id number] : 1950 72 From: Karthikeyan Rothman MD PCP: Dr. aCstro Ferrara DO Status:ADM IN Location: [facility] [id number]- 1 HPI - General General Date of [...] day of presentation ordered hemoglobin by his quantitative equity head returned as 7.4 (? 7.5) patient was [...] for him to have a scope. [facility] Medical History Abnormal results of thyroid function studies Airway intubation performed without difficulty Anemia in chronic kidney disease Atherosclerotic heart disease of [place] coronary artery without angina pectoris Atrial flutter [...] Hyperthyroidism Hypothyroidism (acquired) Infectious endocarditis Iron deficiency long term care pharmacist (current) use of 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 Mild cognitive impairment [...] (Auto) 61.7, Lymph % (Auto) 18.1 L, Rankin % (Auto) 12.9 H, Eos % (Auto) [...] on INR. Charges/Coding Visit Charges Inpatient E&M: 07816 Init Hosp 01/18/23 0512 <Electronically signed by Karthikeyan Rothman MD> Cosigner Signature (if applicable): CC: Dr. Karthikeyan Rothman MD; Dr. Castro Ferrara, DO~ Signed [facility] Work Phone: 1(771) 763-801403-01-[address] Garrison [facility] January 17, 2023 9:34pm Note Date/Time January 17, 2023 5:24 pm [facility] Medical Records Department [address] [place] [address] Emergency Department Summary 01/17/23 MR#: [id number] Acct: [id number] Name: CHRISTIAN AMADOR Rep #:[id number] : 1950 72 From: Claudio Garrison MD PCP: Dr. Castro Ferrara, DO Status:REG ER [...] his state that they went to his quantitative equity head in [place] and had lab work yesterday which showed he was anemic. They also state that he had lab work today with a hemoglobin of 7.4. He was sent in by gastroenterologybecause he will require scoping. He denies any dizziness or lightheadedness. [facility] Medical History Abnormal results of thyroid function studies Airway intubation performed without difficulty Anemia in chronic kidney disease Atherosclerotic heart disease of [place] coronary artery without angina pectoris Atrial flutter [...] Hyperthyroidism Hypothyroidism (acquired) Infectious endocarditis Iron deficiency long term care pharmacist (current) use of 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 Mild cognitive impairment [...] the hospitalist, Dr. Rothman, for admission to [facility] for gastroenterology consultation for endoscopy. Prior to [...] (Auto) 61.7 Lymph % (Auto) 18.1 L Rankin % (Auto) 12.9 H Eos % (Auto) [...] (Auto) Neut % (Auto) Lymph % (Auto) Rankin % (Auto) Eos % (Auto) Baso % [...] Dx/Rx/DC Orders Clinical Impression: Anemia requiring transfusions, long term care pharmacist (current) use of 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, Symptomatic anemia, ESRD (end stage renal disease) on dialysis Disposition Disposition: Acute Care Hospital [facility] What to do if you have Problems For any increased pain, shortness of breath, bleeding, nausea or vomiting, chestpain, or any unexpected problems, contact your Primary Care Provider. Call [facility] ([phone]) or report to the closest Emergency Room. Call 911 if necessary. 01/17/232133 <Electronically signed by Claudio Garrison MD> Cosigner Signature (if applicable): CC: Dr. Castro Ferrara DO ~ Signed [facility] Work Phone: 1(708) 969-868503-01-[address] Garrison [facility] January 17, 2023 9:34pm Note Date/Time January 17, 2023 5:24 pm [facility] Medical Records Department [address] [place] [address] Emergency Department Summary 01/17/23 MR#: [id number] Acct: [id number] Name: CHRISTIAN AMADOR Rep #:[id number] : 1950 72 From: Claudio Garrison MD [...] his state that they went to his quantitative equity head in [place] and had lab work yesterday which showed he was anemic. They also state that he had lab work today with a hemoglobin of 7.4. He was sent in by gastroenterologybecause he will require scoping. He denies any dizziness or lightheadedness. [facility] Medical History Abnormal results of thyroid function studies Airway intubation performed without difficulty Anemia in chronic kidney disease Atherosclerotic heart disease of [place] coronary artery without angina pectoris Atrial flutter [...] Hyperthyroidism Hypothyroidism (acquired) Infectious endocarditis Iron deficiency long term care pharmacist (current) use of 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 Mild cognitive impairment [...] the hospitalist, Dr. Rothman, for admission to [facility] for gastroenterology consultation for endoscopy. Prior to [...] (Auto) 61.7 Lymph % (Auto) 18.1 L Rankin % (Auto) 12.9 H Eos % (Auto) [...] (Auto) Neut % (Auto) Lymph % (Auto) Rankin % (Auto) Eos % (Auto) Baso % [...] Dx/Rx/DC Orders Clinical Impression: Anemia requiring transfusions, nursing home (current) use of 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, Symptomatic anemia, ESRD (end stage renal disease) on dialysis Disposition Disposition: [facility] What to do if you have Problems For any increased pain, shortness of breath, bleeding, nausea or vomiting, chestpain, or any unexpected problems, contact your Primary Care Provider. Call [facility] ([phone]) or report to the closest Emergency Room. Call 911 if necessary. 01/17/232133 <Electronically signed by Claudio Garrison MD> Cosigner Signature (if applicable): CC: Dr. Castro Ferrara, DO ~ Signed [facility] Work Phone: 1(444) 565-815902-27-2023 History of Present illness Narrative* Kelby Chance, TANK HOUSE OPERATOR-SURGICAL SALES REPRESENTATIVE - 01/15/2023 11:30 AM EST Images from [...] with EF 54%. NICOLAS was with Dr. rFy 07/14/2022. Christian Amador is doing well. He [...] Laterality: N/A; Surgeon: Remy Ferrer MD; Location: [facility] INTERVENTIONAL RADIOLOGY (VIR) INSERTION CVC [...] Laterality: Right; Surgeon: Kaylin Grider MD; Location: [facility] INTERVENTIONAL RADIOLOGY (VIR) CARDIAC VEIN ELECTRODE PLACEMENT FOR LV PACING N/A 05/26/2016 Laterality: N/A; Surgeon: Yi Cody MD; Location: [facility] EP PACEMAKER PLACEMENT N/A 05/26/2016 Laterality: N/A; Surgeon: Yi Cody MD; Location: [facility] EP INSERTION CVC TUNNELED Right 05/19/2016 Laterality: Right; Surgeon: Kaylin Grider MD; Location: [facility] INTERVENTIONAL RADIOLOGY (VIR) INSERTION CVC [...] N/A; Surgeon: Favio Kline MD; Location: [facility] EP CARDIAC PACEMAKER PLACEMENT 10/20/2010 Implant: Medtronic [id number] Versa CARDIAC PACEMAKER PLACEMENT 08/31/2003 Implant: Medtronic [id number] APPENDECTOMY ND ANESTH,OPEN HEART SURGERY+PUMP Family History Problem Relation [...] by mouth at bedtime for sleep B Lyqqlqk-X-Yslbq Acid (NEPHRO-BALTAZAR PO) Take by mouth. Cyclobenzaprine [...] C) Resp 16 Ht 1.702 m (5' 7") Wt 79.4 kg (175 lb) SpO2 100% [...] Hepatology, and Nutrition [facility] History of Present illness Narrative* Vaishnavi Fry, DO - 07/14/2022 11:30 AM EDT -Referring Provider for today's consult: Vinny Atkinson MD -Primary Care Provider: Vinny Atkinson History of Present Illness Christian Amador is [...] Laterality: N/A; Surgeon: Remy Ferrer MD; Location: [facility] INTERVENTIONAL RADIOLOGY (VIR) INSERTION CVC TUNNELED N/A 10/03/2021 Laterality: N/A; Surgeon: Kaylin Duran II, MD; Location: [facility] INTERVENTIONAL RADIOLOGY (VIR) PLACEMENT PROBE FOR TRANSESOPHAGEAL ECHOCARDIOGRAPHY N/A 09/23/2021 Laterality: N/A; Surgeon: Sadia Nieto MD; Location: [facility] MAIN OR ESS NASAL DIAGNOSTIC Bilateral 09/20/2021 Laterality: Bilateral; Surgeon: You Wise MD; Location: [facility] MAIN OR ESS SPHENOID SINUSOTOMY WITH REMOVAL TISSUE Right 09/20/2021 Laterality: Right; Surgeon: You Wise MD; [facility] TOTAL ETHMOIDECTOMY Right 09/20/2021 Laterality: Right; Surgeon: You Wise MD; Location: [facility] MAIN OR REMOVAL CVC TUNNELED Right 07/07/2016 Laterality: Right; Surgeon: Kaylin Grider MD; Location: [facility] INTERVENTIONAL RADIOLOGY (VIR) CARDIAC VEIN ELECTRODE PLACEMENT FOR LV PACING N/A 05/26/2016 Laterality: N/A; Surgeon: Yi Cody MD; Location: [facility] EP PACEMAKER PLACEMENT N/A 05/26/2016 Laterality: N/A; Surgeon: Yi Cody MD; Location: [facility] EP INSERTION CVC TUNNELED Right 05/19/2016 Laterality: Right; Surgeon: Kaylin Grider MD; Location: [facility] INTERVENTIONAL RADIOLOGY (VIR) INSERTION CVC TUNNELED Left 05/18/2016 Laterality: Left; Surgeon: Kaylin Grider MD; Location: [facility] INTERVENTIONAL RADIOLOGY (VIR) PACEMAKER ELECTRODE REMOVAL N/A 05/08/2016 Laterality: N/A; Surgeon: Luigi Mart MD; Location: [facility] EP COLONOSCOPY DIAGNOSTIC N/A 03/20/2016 Laterality: N/A; Surgeon: Jeremiah García MD; Location: [facility] ENDOSCOPY EP IMPLANT BIVENTRICULAR PACEMAKER TOTAL 08-07-2013 3 leads CARDIAC VEIN ELECTRODE PLACEMENT FOR LV PACING N/A 08/07/2013 Laterality: N/A; Surgeon: Favio Kline MD; Location: [facility] EP PACEMAKER ELECTRODE REMOVAL 08/07/2013 Surgeon: Favio Kline MD; Location: [facility] EP AV NODE ABLATION N/A 02/26/2013 Laterality: N/A; Surgeon: Favio Kline MD; Location: [facility] EP CARDIAC PACEMAKER PLACEMENT 10/20/2010 Implant: Medtronic [id number] Versa CARDIAC PACEMAKER PLACEMENT 08/31/2003 Implant: Medtronic [id number] APPENDECTOMY ND ANESTH,OPEN HEART SURGERY+PUMP Home Medications Current Outpatient [...] resp. rate 16, height 1.702 m (5' 7"), weight 74.9 kg (165 lb 3.2 oz), [...] care of Christian Amador. Vaishnavi Fry DO Elevator Constructor Electric of Clinical Medicine Division of Gastroenterology, Hepatology and Nutrition [facility] Pager: [phone] [facility] Evaluation note * Diagnosis Onset Date Resolution Status Benign essential hypertension chronic Biventricular cardiac pacemaker in situ May, chronic History of aortic valve replacement 2002 chronic History of mitral valve repair 2002 chronic Syncope resolved Biventricular cardiac pacemaker in situ May, chronic 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, stage III (moderate) acute nursing home (current) use of 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 acute Polyneuropathy acute Mild cognitive impairment ch ronic Vitamin D insufficiency 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 Hyperammonemia resolved Syncope resolved Encephalopathy acute Sepsis acute Vitamin D insufficiency 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 Acute encephalopathy resolve d Acute respiratory [...] pacemaker in situ May, chronic [facility] Work Phone: 1(957) 565-347807-01-2016 Evaluation note* Diagnosis Onset Date Resolution Status [...] cirrhosis acute GI bleed resolved [facility] Work Phone: 1([phone]) 352-231107-01-2016 Evaluation note* Diagnosis Onset Date Resolution Status [...] cirrhosis acute GI bleed resolved [facility] Work Phone: 1(480) 226-891507-01-2016 Evaluation note* Diagnosis Onset Date Resolution Status [...] (RFA) acute Pleural effusion acute [facility] Work Phone: 1([phone]) 484-479607-01-2016 Evaluation note* Diagnosis Onset Date Resolution Status Biventricular cardiac pacemaker in situ May, acute History of atrioventricular chiquita ablation acute Cardiomyopathy chronic Biventricular cardiac pacemaker in situ May, acute History of mitral valve repair August, acute HLD (hyperlipidemia) acute Cardiomyopathy chronic History of aortic valve replacement 2002 chronic History of cardiac radiofrequency ablation (RFA) chronic 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 care 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 (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) 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 of 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 chronic Other specified cardiac dysrhythmias chronic Benign essential hypertension resolved Essential tremor chronic Mild cognitive impairment ch ronic Polyneuropathy chronic Syncope resolved Biventricular cardiac pacemaker in situ May, acute History of atrioventricular chiquita ablation acute Cardiomyopathy chronic History of cardiac radiofrequency ablation (RFA) chronic Dyspnea chronic [facility] Work Phone: 1(371) 252-100007-01-2016 Evaluation note* Diagnosis Onset Date Resolution Status [...] HLD (hyperlipidemia) chronic Other specified cardiac dysrhythmias [facility] Work Phone: 1([phone]) 204-111007-01-2016 Evaluation note* Diagnosis Onset Date Resolution Status Admit Date Biventricular cardiac pacema ker in situ May, acute January 28, 2025 10:02am Cardiomyopathy chronic January 10:02am History of cardiac radiofrequency ablation (RFA) chronic [facility] 2024 10:02am Biventricular cardiac pacema ker in situ May, acute January 28, 2025 10:03am History of mitral valve repair August, ac [place] January 28, 2025 10:03am Benign essential hypertension chroni c January 28, 2025 10:03am CAD (coronary artery disease) chroni c January 28, 2025 10:03am Cardiomyopathy chronic January 10:03am History of aortic valve replacement 2003 chronic January 28, 2025 10:03am History of cardiac radiofrequency ablation (RFA) chronic [facility] 2024 10:03am HLD (hyperlipidemia) chronic [facility] 2024 10:03am Other specified cardiac dysrhythmias chronic January 28, 2025 10:03am Early satiety acute March 17, 2025 2:51pm Emesis, persistent acute March 17, 2025 2:51pm Necrosis of colon acute February 182024 2:51pm 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 gastropathy 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 March 17, 2025 2:51pm Abnormal CT scan, chest acute M 2024 9:12am Cardiomyopathy chronic March 25, 2 025 9:12am Dyspnea chronic March 25, 2025 9:12am [facility]ob[facility]ive [facility] March 25, 2025 9:12am [facility] Work Phone: [phone] Evaluation note* Diagnosis Onset Date Resolution Status Admit Date Biventricular cardiac pacemaker in situ May, acute January 28 10:02am Cardiomyopathy chronic January 10:02am History of cardiac radiofrequency ablation (RFA) [facility] 2024 10:02am Biventricular cardiac pacemaker in situ May, acute January 28 10:03am History of mitral valve repair August, ac [place] January 28, 2025 10:03am Benign essential hypertension [facility] January 28, 2025 10:03am CAD (coronary artery disease) [facility] January 28, 2025 10:03am Cardiomyopathy chronic January 10:03am History of aortic valve replacement 2002 [facility] January 28, 2025 10:03am History of cardiac radiofrequency ablation (RFA) [facility] 2024 10:03am HLD (hyperlipidemia) [facility] 2024 10:03am Other specified cardiac dysrhythmias chronic January 28, 2025 10:03am Early satiety acute March 17, 2025 2:51pm Emesis, persistent acute March 17, 2025 2:51pm Necrosis of colon acute February 182024 2:51pm 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 gastropathy chronic March 17, 2025 2:51pm Abnormal CT scan, chest acute M ay 2024 9:12am Cardiomyopathy chronic March 25, 025 9:12am Dyspnea chronic March 25, 2025 9:12am MIA (obstructive sleep apnea) chroni c March 25, 2025 9:12am GI bleed acute May 27, 2025 12:45pm Hematochezia resolved May 27 12:45pm [facility] Work Phone: 1([phone]) 887-335610-01-2003 Evaluation note* Diagnosis Onset Date Resolution Status [...] Problem with dialysis access acute [facility] Work Phone: 1([phone]) 373-457610-01-2003 Evaluation note* Diagnosis Onset Date Resolution Status [...] Problem with dialysis access acute [facility] Work Phone: Discharge summary Author Dr. Centeno [facility] January 19, 2023 3:37pm Note Date/Time January 19, 2023 3:37 pm [facility] Medical Records Department [address] [place] [address] Instructions for Home/Discharge Instructions 01/19/23 1536 MR#: [id number] Acct: [id number] Name: CHRISTIAN AMADOR Rep #:[id number] : 1950 72 From: Mimi Centeno MD [...] Primary Care Provider: Castro Ferrara Consulting Providers: Kody Zheng ; Bruce Calderon ; Karthikeyan Rothman Instructions Patient Instructions: [...] to schedule your hospital follow-up appointment (ph. [phone]) or call your outside provider to schedule a hospital follow-up appointment if preferred -Please resume your home Coumadin, your INR was 3.4 initially and on 01/19 it was 3.1 after a dose was held on admission due to bleeding. 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 Grullon your community support specialist -Please continue dialysis as scheduled -You had [...] can be placed): Home, Self Care 01/19/23 0907<Electronically signed by iMmi Centeno MD>Mimi Centeno MD CC: Dr. Bruce Calderon DO; Dr. Karthikeyan Rothman MD; Dr. Castro Ferrara DO; Kody Zheng, ~ Signed [facility] Work Phone: Evaluation note* Diagnosis Onset Date Resolution Status 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, stage III (moderate) acute long term care pharmacist (current) use of 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 acute Polyneuropathy acute Mild cognitive impairment ch ronic Vitamin D insufficiency 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 Hyperammonemia resolved Syncope resolved Encephalopathy acute Sepsis acute Vitamin D insufficiency 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 Acute encephalopathy resolve d Acute respiratory [...] chronic Biventricular cardiac pacemaker in situ May, [facility] Work Phone: Evaluation note* Diagnosis Cirrhosis of liver without ascites, unspecified hepatic cirrhosis type [facility] Diagnosis Onset Date Resolution Status 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, stage III (moderate) acute long term care pharmacist (current) use of 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 acute Polyneuropathy acute Mild cognitive impairment ch ronic Vitamin D insufficiency 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 Hyperammonemia resolved Syncope resolved Encephalopathy acute Sepsis acute Vitamin D insufficiency 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 Acute encephalopathy resolve d Acute respiratory [...] Supratherapeutic INR acute Acute on chronic anemia 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 History of aortic valve replacement 2002 chronic History of mitral valve repair 2002 [facility] Work Phone: Evaluation note* Diagnosis Onset Date Resolution Status Polyneuropathy acute Mild cognitive impairment ch ronic Vitamin D insufficiency 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 Hyperammonemia resolved Syncope resolved Encephalopathy acute Sepsis acute Vitamin D insufficiency 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 Acute encephalopathy resolve d Acute respiratory [...] resolved GI (gastrointestinal bleed) resolved [facility] Work Phone: Evaluation note* Diagnosis Onset Date [...] radiofrequency ablation (RFA) acute HLD (hyperlipidemia) acute long term care pharmacist (current) use of 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 acute Other specified [...] mitral valve repair 2002 chronic [facility] Work Phone: Evaluation note* Diagnosis Cirrhosis of liver without ascites, unspecified hepatic cirrhosis type- Primary [facility] Diagnosis Onset Date Resolution Status Debility [...] radiofrequency ablation (RFA) acute HLD (hyperlipidemia) acute long term care pharmacist (current) use of 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 acute Other specified [...] sleep apnea) acute Hematochezia resolved [facility] Work Phone: Evaluation note* Diagnosis Onset Date [...] radiofrequency ablation (RFA) acute HLD (hyperlipidemia) acute nursing home (current) use of 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 acute Other specified [...] Supratherapeutic INR acute Acute on chronic anemia 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 Benign essential hypertension chronic History of aortic valve replacement 2003 chronic History of mitral valve repair 2003 chronic Hyperammonemia chronic Acute metabolic encephalopathy resolved [facility] Work Phone: Evaluation note* Diagnosis Onset Date [...] resolved Supratherapeutic INR resolve d [facility] Work Phone: Evaluation note* Diagnosis Onset Date Resolution Status Hyperammonemia resolved Syncope resolved Cough resolved Dyspnea resolved GI bleed acute Hematochezia resolved Acute metabolic encephalopathy resolved Acute on chronic anemia reso lved Debility resolved GI bleed resolved Hyperammonemia resolved Hyperkalemia resolved Supratherapeutic INR resolve [facility] Work Phone: Evaluation note* Diagnosis Onset Date Resolution Status Cough resolved Dyspnea resolved GI bleed acute Hematochezia resolved Acute metabolic encephalopathy resolved Acute on chronic anemia reso lved Debility resolved GI bleed resolved Hyperammonemia resolved Hyperkalemia resolved Supratherapeutic INR resolve [facility] Work Phone: Evaluation note* Diagnosis Onset Date Resolution Status GI bleed acute Hyperammonemia chronic Mild cognitive impairment ch ronic Polyneuropathy chronic Syncope resolved Benign essential hypertension acute Biventricular cardiac pacemaker in situ May, acute History of cardiac radiofrequency ablation (RFA) acute History of mitral valve repair August, acute HLD (hyperlipidemia) acute nursing home (current) use of 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 acute Biventricular cardiac pacemaker in situ May, acute History of atrioventricular chiquita ablation acute History of cardiac radiofrequency ablation (RFA) acute [facility] Work Phone: Evaluation note* Diagnosis Cirrhosis of liver without ascites, unspecified hepatic cirrhosis type- Primary [facility] Diagnosis Onset Date Resolution Status GI bleed acute Hyperammonemia chronic Mild cognitive impairment ch ronic Polyneuropathy chronic Syncope resolved Benign essential hypertension acute Biventricular cardiac pacemaker in situ May, acute History of cardiac radiofrequency ablation (RFA) acute History of mitral valve repair August, acute HLD (hyperlipidemia) acute long term care pharmacist (current) use of 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 acute Biventricular cardiac pacemaker in situ May, acute History of atrioventricular chiquita ablation acute History of cardiac radiofrequency ablation (RFA) acute Anemia requiring transfusions acute ESRD (end stage renal disease) on dialysis acute long term care pharmacist (current) use of 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 acute Symptomatic anemia acute [facility] Work Phone: Evaluation note* Diagnosis Onset Date Resolution Status GI bleed acute Hyperammonemia chronic Mild cognitive impairment ch ronic Polyneuropathy chronic Syncope resolved Benign essential hypertension acute Biventricular cardiac pacemaker in situ May, acute History of cardiac radiofrequency ablation (RFA) acute History of mitral valve repair August, acute HLD (hyperlipidemia) acute nursing home (current) use of 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 acute Biventricular cardiac pacemaker in situ May, acute History of atrioventricular chiquita ablation acute History of cardiac radiofrequency ablation (RFA) acute ABLA (acute blood loss anemia) acute Anemia requiring transfusions acute Atherosclerotic heart diseas e of [place] coronary artery without angina pectoris acute Benign essential hypertension acute ESRD (end stage renal disease) on dialysis acute History of mechanical aortic valve replacement August acute History of mitral valve repair August, acute Liver cirrhosis acute nursing home (current) use of 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 acute Symptomatic anemia acute GI bleed resolved [facility] Work Phone: Evaluation note* Diagnosis Urinary frequency- [facility] Other cirrhosis of liver- [facility] Diagnosis Onset Date Resolution Status Anemia [...] History of cardiac radiofrequency ablation (RFA) chronic long term care pharmacist (current) use of 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 chronic Other specified cardiac dysrhythmias chronic Benign essential hypertension resolved [facility] Work Phone: Evaluation note* Diagnosis Onset Date [...] History of cardiac radiofrequency ablation (RFA) chronic nursing home (current) use of 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 chronic Other specified cardiac dysrhythmias chronic Benign essential hypertension resolved [facility] Work Phone: Evaluation note* Diagnosis SSS (sick [...] Sinoatrial node dysfunction [facility] Diagnosis SSS (sick sinus syndrome) Sinoatrial node dysfunction SSS (sick sinus syndrome) Sinoatrial node dysfunction [facility] Diagnosis Other cirrhosis of liver- [facility] Diagnosis Cirrhosis of liver without ascites, unspecified hepatic cirrhosis type Frailty Senility without mention of psychosis Physical deconditioning Debility, unspecified [facility] Diagnosis Atrial fibrillation- Primary A-fib Atrial [...] of liver- [facility] Diagnosis Atrial fibrillation- Primary A-fib Atrial [...] Coronary atherosclerosis of unspecified type of vessel, [place] or graft Chronic systolic heart failure Electrolyte disorder (K, Cl, or Na) Electrolyte and fluid disorders not elsewhere classified H/O mechanical aortic valve replacement Heart valve replaced by other means HTN (hypertension), benign Essential hypertension, benign S/P radiofrequency ablation operation for arrhythmia Other postprocedural status [facility] Diagnosis Atrial fibrillation- Primary A-fib Atrial [...] Platelets) Thrombocytopenia, unspecified [facility] Diagnosis Atrial fibrillation- Primary A-fib Atrial [...] dysfunction-associated steatohepatitis (MASH) [facility] Attachments The following attachments cannot be sent through Care Everywhere. * [facility] ([facility] ([place]) [facility] for [facility] (narrative)No reason for referral information availableWSt. Charles [facility] Work Phone: Reason for visit Narrative* Auth/Cert (Routine) Specialty Diagnoses / Procedures Referred By Pricila anthony Referred To Contact Diagnoses Pneumonia (Empyema) Fernanda Parra MD [address] [place] [address] Phone: tel: fax: [facility] [address] [place] [address] Referral ID Status Reason Start Date Expiration Date Visits Re quested Visits Authorized [id number] [address] [facility] Summary Purpose Family History No Family History [...] 22, 2020 1:15pm Living Will Yes January 10, 2 022 4:07pm Power of Poultry Scientist Yes January 10, 2022 4:07pm Latest Code [...] Date/ Time Name of Medical Power of Poultry Scientist ANNA AMADOR January 10, 2022 4:07pm Advance Directives Yes September 22, 2020 1:15pm Living Will No April 04, 2022 9 :10am Power of Poultry Scientist No April 04, 2022 9:10am Advance Directive Response Recorded Date/ Time Name of Medical Power of Poultry Scientist ANNA AMADOR January 10, 2022 4:07pm Advance Directives Yes September 22, 2020 1:15pm Living Will No April 08, 2022 5 :45am Power of Poultry Scientist No April 08, 2022 5:45am Advance Directive Response Recorded Date/ Time Advance Directives Yes September 22, 2020 1:15pm Living Will No April 08, 2022 5 :45am Power of Poultry Scientist No April 08, 2022 5:45am Advance Directive Response Recorded Date/ Time Advance Directives on File Yes 2019 1:15pm Name of Medical Power of Poultry Scientist ANNA AMADOR () September 22, 2020 1:15pm Name of Medical Power of Poultry Scientist July 15, 2022 11:54am Advance Directives Yes September 22, 2020 1:15pm Living Will Yes July 15 11:54am Power of Poultry Scientist Yes July 15 11:54am Advance Directive Response Recorded Date/ Time Advance Directives on File Yes 2019 1:15pm Name of Medical Power of Poultry Scientist ANNA AMADOR () September 22, 2020 1:15pm Name of Medical Power of Poultry Scientist Anna Amador July 15, 2022 8:00pm Advance Directives Yes September 22, 2020 1:15pm Living Will Yes July 15 2 8:00pm Power of Poultry Scientist Yes July 15 8:00pm Advance Directive Response Recorded Date/ Time Advance Directives Yes September 22, 2020 12:15pm Living Will Yes July 15 7:00pm Power of Poultry Scientist Yes July 15 7:00pm Latest Code Status [...] No January 17, 2023 5:51pm Power of Poultry Scientist No January 17 5:51pm Advance Directive Response Recorded Date/ Time Name of Medical Power of Poultry Scientist anna lacy ana maría January 17, 2023 10:33pm Advance Directives Yes September 22, 2020 12:15pm Living Will Yes January 17, 2023 10:33pm Power of Poultry Scientist Yes January 17 10:33pm Advance Directive Response Recorded Date/ Time Name of Medical Power of Poultry Scientist anna lacy ana maría January 17, 2023 11:33pm Advance Directives Yes September 22, 2020 1:15pm Living Will Yes January 17, 2023 11:33pm Power of Poultry Scientist Yes January 17 11:33pm Latest Code Status [...] Date/ Time Name of Medical Power of Poultry Scientist anna lacy ana maría January 17, 2023 11:33pm Advance Directives on File Yes March 192022 9:06am Name of Medical Power of Poultry Scientist Martin March 29, 2023 9:06am Advance Directives Yes March 29 9:06am Living Will Yes March 29, 2023 9 :06am Power of Poultry Scientist Yes March 29, 2023 9:06am Advance Directive Response Recorded Date/ Time Name of Medical Power of Poultry Scientist anna gotti January 17, 2023 11:33pm Advance Directives on File Yes March 192022 9:06am Name of Medical Power of Poultry Scientist (Anna March 29, 2023 9:06am Name of Medical Power of Poultry Scientist Anna MOISE wi fe March 29, 2023 5:12pm Advance Directives Yes March 29 9:06am Living Will Yes March 29, 2023 5 :12pm Power of Poultry Scientist Yes March 29, 2023 5:12pm Latest Code [...] 2019 1:15pm Name of Medical Power of Poultry Scientist ANNA AMADOR () September 22, 2020 1:15pm Advance Directives on File Yes March 192022 9:06am Name of Medical Power of Poultry Scientist (Anna March 29, 2023 9:06am Name of Medical Power of Poultry Scientist Anna MOISE wi fe March 29, 2023 5:12pm Advance Directives Yes March 29 9:06am Living Will Yes March 29, 2023 5 :12pm Power of Poultry Scientist Yes March 29, 2023 5:12pm Advance Directive Response Recorded Date/ Time Advance Directives on File Yes 2019 1:15pm Name of Medical Power of Poultry Scientist ANNA AMADOR () September 22, 2020 1:15pm Advance Directives Yes March 29 9:06am Living Will Yes March 29, 2023 5 :12pm Power of Poultry Scientist Yes March 29, 2023 5:12pm Advance Directive Response Recorded Date/ Time Advance Directives Yes March 29 8:06am Living Will Yes March 29, 2023 4 :12pm Power of Poultry Scientist Yes March 29, 2023 4:12pm Date Activated [...] Do you have a Healthcare Power of Poultry Scientist? Yes March 29, 2023 5:12pm Living Will Yes December 16 6:17pm Do you have a Healthcare Power of Poultry Scientist? Yes December 16, 2024 6:17pm Name of Medical Power of Poultry Scientist Crys Mcguire December 16, 2024 6:17pm Living Will Yes February 12, 2025 10:36pm Do you have a Healthcare Power of Poultry Scientist? Yes February 12, 2025 10:36pm Name of Medical Power of Poultry Scientist --anna February 12, 2025 10:36pm Living Will Yes December 17 8:43pm Do you have a Healthcare Power of Poultry Scientist? Yes December 17, 2024 8:43pm Name of Medical Power of Poultry Scientist ANNA MCGUIRE December 17, 2024 8:43pm Advance [...] Do you have a Healthcare Power of Poultry Scientist? Yes March 29, 2023 5:12pm Living Will Yes February 12, 2025 10:36pm Do you have a Healthcare Power of Poultry Scientist? Yes February 12, 2025 10:36pm Name of Medical Power of Poultry Scientist --anna February 12, 2025 10:36pm Do you have a Healthcare Power of Poultry Scientist? Yes April 18, 2025 6:23pm Name of Medical Power of Poultry Scientist Anna Amador April 18, 2025 6:23pm Advance Directives Yes March 29 9:06am Advance Directive Response Recorded Date/ Time Living Will Yes March 29, 2023 5 :12pm Do you have a Healthcare Pow er of Poultry Scientist? Yes March 29, 2023 5:12pm Advance Directives on File Yes 2019 1:15pm Living Will Yes September 22 1:15pm Do you have a Healthcare Pow er of Poultry Scientist? Yes September 22, 2020 1:15pm Name of Medical Power of Poultry Scientist ANNA AMADOR () September 22, 2020 1:15pm Living Will Yes February 12, 2025 10:36pm Do you have a Healthcare Pow er of Poultry Scientist? Yes February 12, 2025 10:36pm Name of Medical Power of Poultry Scientist --anna February 12, 2025 10:36pm Do you have a Healthcare Pow er of Poultry Scientist? Yes April 18, 2025 6:23pm Name of Medical Power of Poultry Scientist Anna Amador April 18, 2025 6:23pm Advance Directives Yes March 29 9:06am Advance Directive Response Recorded Date/ Time Advance Directives on File Yes 2019 1:15pm Living Will Yes September 22 1:15pm Do you have a Healthcare Pow er of Poultry Scientist? Yes September 22, 2020 1:15pm Name of Medical Power of Poultry Scientist ANNA AMADOR () September 22, 2020 1:15pm Do you have a Healthcare Pow er of Poultry Scientist? Yes April 18, 2025 6:23pm Name of Medical Power of Poultry Scientist Anna Amador April 18, 2025 6:23pm Do you have a Healthcare Pow er of Poultry Scientist? Yes June 14, 2025 9:01am Advance Directives Yes March 29 9:06am Advance Directive Response Recorded Date/ Time Advance Directives on File Yes 2019 1:15pm Living Will Yes September 22 1:15pm Do you have a Healthcare Pow er of Poultry Scientist? Yes September 22, 2020 1:15pm Name of Medical Power of Poultry Scientist ANNA AMADOR () September 22, 2020 1:15pm Do you have a Healthcare Pow er of Poultry Scientist? Yes April 18, 2025 6:23pm Name of Medical Power of Poultry Scientist Anna Amadro April 18, 2025 6:23pm Do you have a Healthcare Pow er of Poultry Scientist? Yes June 14, 2025 9:01am Do you have a Healthcare Pow er of Poultry Scientist? Yes June 23, 2025 10:41am Advance Directives Yes March 29 9:06am Date Activated Date Inactivated Comments 06/24/2025 10:31 AM Question Answer Comments Full Code Order Discussed With: Patient Chief Complaint and Reason for Visit Chief Complaint S/P [facility] (RECORDS [facility]) PPM CK S/O TIEN WEAKNESS/ PT BRING RX S/O kidney desaese VM 12/12, FISTULA HYPERKALEMIA SYNCOPE EPISODES/HOSP FU SEPSIS,ACUTE HYPOXIC RESP FAILURE,ENCEPHALOPATHY SEPSIS,ACUTE HYPOXIC RESP FAILURE,ENCEPHALOPATHY SEPSIS,ACUTE HYPOXIC RESP FAILURE,ENCEPHALOPATHY SEPSIS,ACUTE HYPOXIC RESP FAILURE,ENCEPHALOPATHY SEPSIS,ACUTE HYPOXIC RESP FAILURE,ENCEPHALOPATHY S/O/ LABS FROM 2 OTHER DRS/CC INR TO [facility] FU 3 mos DIALYSIS TECH-P f/u Sees JHR @ 9AM SLEEP APNEA; LM 02/06 S/O/ LABS FROM 2 OTHER DRS/CC INR TO [facility] Dyspnea, unspecified Dyspnea, unspecified Reason for Visit Benign essential hyp ertension Biventricular cardiac pacemaker in situ History of aortic valve replacement History of mitral valve repair Syncope Biventricular cardiac pacemaker in situ 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, stage III (moderate) long term care pharmacist (current) use of 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 Polyneuropathy Mild cognitive [...] LABS FROM 2 OTHER DRS/CC INR TO [facility] FU 3 mos DIALYSIS TECH-P f/u Sees JHR @ 9AM SLEEP APNEA; LM 02/06 S/O/ LABS FROM 2 OTHER DRS/CC [facility] TO [facility] Dyspnea, unspecified Dyspnea, unspecified S/O/ LABS FROM 2 OTHER DRS/CC INR TO [facility] ENCEPHALOPATHY Reason for Visit Benign essential hyp ertension Biventricular cardiac pacemaker in situ History of aortic valve replacement History of mitral valve repair Syncope Biventricular cardiac pacemaker in situ 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, stage III (moderate) nursing home (current) use of 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 Polyneuropathy Mild cognitive [...] LABS FROM 2 OTHER DRS/CC INR TO [facility] FU 3 mos DIALYSIS TECH-P f/u Sees JHR @ 9AM SLEEP APNEA; LM 02/06 S/O/ LABS FROM 2 OTHER DRS/CC INR TO [facility] Dyspnea, unspecified Dyspnea, unspecified S/O/ LABS FROM 2 OTHER DRS/CC [facility] TO [facility] ENCEPHALOPATHY Reason for Visit Chronic kidney disea se, stage III (moderate) nursing home (current) use of 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 Polyneuropathy Mild cognitive [...] LABS FROM 2 OTHER DRS/CC INR TO [facility] FU 3 mos DIALYSIS TECH-P f/u Sees JHR @ 9AM SLEEP APNEA; LM 02/06 S/O/ [facility] Dyspnea, unspecified Dyspnea, unspecified ENCEPHALOPATHY S/O/ LABS FROM 2 OTHER DRS/CC [facility] Reason for Visit Chronic kidney disea se, stage III (moderate) long term care pharmacist (current) use of anticoagulants Polyneuropathy Mild cognitive [...] LABS FROM 2 OTHER DRS/CC INR TO [facility] FU 3 mos DIALYSIS TECH-P f/u Sees JHR @ 9AM SLEEP APNEA; LM 02/06 S/O/ LABS FROM 2 OTHER DRS/CC INR TO [facility] Dyspnea, unspecified Dyspnea, unspecified ENCEPHALOPATHY S/O/ LABS FROM 2 OTHER DRS/CC [facility] S/O GI BLEED GI BLEED GI BLEED GI BLEED GI BLEED Reason for Visit Chronic kidney disea se, stage III (moderate) nursing home (current) use of anticoagulants Polyneuropathy Mild cognitive [...] LABS FROM 2 OTHER DRS/CC INR TO [facility] FU 3 mos DIALYSIS TECH-P f/u Sees JHR @ 9AM SLEEP APNEA; LM 02/06 S/O/ LABS FROM 2 OTHER DRS/CC [facility] Dyspnea, unspecified Dyspnea, unspecified ENCEPHALOPATHY S/O/ LABS [facility]LE[facility] GI BLEED GI BLEED GI BLEED GI BLEED S/O nose bleed Reason for Visit Chronic kidney disea se, stage III (moderate) long term care pharmacist (current) use of anticoagulants Polyneuropathy Mild cognitive [...] 2 OTHER DRS[facility] FU 3 mos DIALYSIS TECH-P f/u Sees JHR @ 9AM SLEEP APNEA; LM 02/06 S/O/ LABS [facility] Dyspnea, unspecified Dyspnea, unspecified ENCEPHALOPATHY S/O/ LABS [...] bleed) Chief Complaint Hospital FU 3 mos DIALYSIS TECH-P f/u Sees JHR @ 9AM SLEEP APNEA; LM 02/06 S/O/ LABS FROM 2 OTHER DRS/CC [facility] TO [facility] Dyspnea, unspecified Dyspnea, unspecified ENCEPHALOPATHY S/O/ LABS FROM 2 OTHER DRS/CC [facility] TO [facility] GI BLEED GI BLEED GI BLEED GI BLEED GI BLEED nose bleed S/O 3 M FU 3 mo DIALYSIS TECH-P fu/PFM 3:30 S/O ADD'L E ORDERS DR [...] of cardiac radiofrequency ablation (RFA) HLD (hyperlipidemia) long term care pharmacist (current) use of anticoagulants Other specified cardiac [...] bleed S/O 3 M FU 3 mo DIALYSIS TECH-P fu/PFM 3:30 S/O ADD'L E ORDERS DR [...] of cardiac radiofrequency ablation (RFA) HLD (hyperlipidemia) long term care pharmacist (current) use of anticoagulants Other specified cardiac [...] bleed S/O 3 M FU 3 mo DIALYSIS TECH-P fu/PFM 3:30 S/O ADD'L E ORDERS DR [...] of cardiac radiofrequency ablation (RFA) HLD (hyperlipidemia) nursing home (current) use of anticoagulants Other specified cardiac [...] bleed S/O 3 M FU 3 mo DIALYSIS TECH-P fu/PFM 3:30 S/O ADD'L E ORDERS DR [...] Chief Complaint 3 M FU 3 mo DIALYSIS TECH-P fu/PFM 3:30 S/O ADD'L E ORDERS DR [...] History of mitral valve repair HLD (hyperlipidemia) nursing home (current) use of anticoagulants Biventricular cardiac pacemaker [...] History of mitral valve repair HLD (hyperlipidemia) long term care pharmacist (current) use of anticoagulants Biventricular cardiac pacemaker [...] History of mitral valve repair HLD (hyperlipidemia) long term care pharmacist (current) use of anticoagulants Biventricular cardiac pacemaker in situ History of atrioventricular chiquita ablation History of cardiac radiofrequency ablation (RFA) Anemia requiring transfusions ESRD (end stage renal disease) on dialysis nursing home (current) use of anticoagulants Symptomatic anemia Chief [...] History of mitral valve repair HLD (hyperlipidemia) nursing home (current) use of anticoagulants Biventricular cardiac pacemaker in situ History of atrioventricular chiquita ablation History of cardiac radiofrequency ablation (RFA) ABLA (acute blood loss anemia) Anemia requiring transfusions Atherosclerotic heart disease of [place] coronary artery without angina pectoris Benign essential hypertension ESRD (end stage renal disease) on dialysis History of mechanical aortic valve replacement History of mitral valve repair Liver cirrhosis long term care pharmacist (current) use of anticoagulants Symptomatic anemia GI [...] SYMPTOMATIC ANEMIA SYMPTOMATIC ANEMIA s/o 3 MO [facility] FU EORDER Reason for [...] SYMPTOMATIC ANEMIA SYMPTOMATIC ANEMIA s/o 3 MO [facility] FU EORDER 6 MO [...] SYMPTOMATIC ANEMIA SYMPTOMATIC ANEMIA s/o 3 MO [facility] FU EORDER 6 MO [...] SYMPTOMATIC ANEMIA SYMPTOMATIC ANEMIA s/o 3 MO [facility] FU EORDER 6 MO [...] replacement History of cardiac radiofrequency ablation (RFA) long term care pharmacist (current) use of anticoagulants Other specified cardiac [...] replacement History of cardiac radiofrequency ablation (RFA) long term care pharmacist (current) use of anticoagulants Other specified cardiac [...] replacement History of cardiac radiofrequency ablation (RFA) nursing home (current) use of anticoagulants Other specified cardiac [...] January 28, 2025 9:0 0am 3 mos DIALYSIS TECH-P f/u / JHR @ 10:30 January 10:02am [...] 10: 03am History of aortic valve replacement [facility] 2024 10:03am History of cardiac radiofrequency ablati on (RFA) January 28, 2025 10:03am HLD (hyperlipidemia) January 28, 2025 10 :03am Other specified cardiac dysrhythmias [facility] 2024 10:03am Chief Complaint Admit Date DIALYSIS CATHETER CHECK December 16 2:27pm DIALYSIS CATHETER CHECK December 16 7:36pm DIALYSIS PORT LEAKING December 17, 2024 3:59pm MADRID CIRRHOSIS, HCC SCREEN December 8:45am D63.1 January 22, 2025 2:00 pm Pacer Check Remote January 28, 2025 9:0 0am 3 mos DIALYSIS TECH-P f/u / JHR @ 10:30 January 10:02am [...] 10: 03am History of aortic valve replacement [facility] 2024 10:03am History of cardiac radiofrequency ablati on (RFA) January 28, 2025 10:03am HLD (hyperlipidemia) January 28, 2025 10 :03am Other specified cardiac dysrhythmias [facility] 2024 10:03am Early satiety March 17, 2025 2:5 1pm Emesis, persistent March 17, 2025 2:5 1pm Necrosis of colon March 17, 2025 2:5 1pm 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 gastropathy March 172024 2:51pm Abnormal CT scan, chest March 25, 2025 9: 12am Cardiomyopathy March 25, 2025 9:12am Dyspnea March 25, 2025 9:12am MIA (obstructive sleep apnea) March 25 9:12am Chief Complaint Admit Date DIALYSIS CATHETER CHECK December 16 2:27pm DIALYSIS CATHETER CHECK December 16 7:36pm DIALYSIS PORT LEAKING December 17, 2024 3:59pm MADRID CIRRHOSIS, HCC SCREEN December 8:45am D63.1 January 22, 2025 2:00 pm Pacer Check Remote January 28, 2025 9:0 0am 3 mos DIALYSIS TECH-P f/u / JHR @ :January 10:02am 6 m fu / ALLY @ [...] January 28, 2025 9:0 0am 3 mos DIALYSIS TECH-P f/u / JHR @ :January 10:02am 6 m fu / ALLY @ [...] January 28, 2025 9:0 0am 3 mos DIALYSIS TECH-P f/u / JHR @ :January 10:02am 6 m fu / ALLY @ [...] January 28, 2025 9:0 0am 3 mos DIALYSIS TECH-P f/u / JHR @ 10:30 January 10:02am [...] 2025 10 :03am Other specified cardiac dysrhythmias [facility] 2024 10:03am Early satiety March 17, 2025 2:5 1pm Emesis, persistent March 17, 2025 2:5 1pm Necrosis of colon March 17, 2025 2:5 1pm 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 gastropathy March 172024 2:51pm Abnormal CT scan, chest March 25, 2025 9: 12am Cardiomyopathy March 25, 2025 9:12am Dyspnea March 25, 2025 9:12am MIA (obstructive sleep apnea) March 25, 025 9:12am GI bleed May 27, 2025 12:45 pm Hematochezia May 27, 2025 12:45 pm Chief Complaint Admit Date Hospital FU March 17, 2025 2:5 1pm HYPEREMESIS March 23, 2025 1:53pm Hospital Follow up March 25, 2025 9:12am R06.00 - Dyspnea, unspecified April 08, 2025 7:52am R06.00 - Dyspnea, unspecified April 08, 2025 8:15am lower extre April 18, 2025 5:59p m R06.00 - Dyspnea, unspecified / PAIN IN R THIGH April 29, 2025 1:50pm 1 YEAR LABS May 27, 2025 12:51 pm 6MO LABS June 01, 2025 8:34 am INT LABS June 11, 2025 10:3 8am back pain June 14, 2025 8:52 am Reason for Visit Admit Date Early satiety March 17, 2025 2:5 1pm Emesis, persistent March 17, 2025 2:5 1pm Necrosis of colon March 17, 2025 2:5 1pm 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 gastropathy March 172024 2:51pm Abnormal CT scan, chest March 25, 2025 9: 12am Cardiomyopathy March 25, 2025 9:12am Dyspnea March 25, 2025 9:12am MIA (obstructive sleep apnea) March 25, 025 9:12am GI bleed June 01, 2025 8:34 am Hematochezia June 01, 2025 8:34 am Chief Complaint Admit Date Hospital March 17, 2025 2:5 1pm HYPEREMESIS March 23, 2025 1:53pm Hospital Follow up March 25, 2025 9:12am R06.00 - Dyspnea, unspecified April 08, 2025 7:52am R06.00 - Dyspnea, unspecified April 08, 2025 8:15am lower extre April 18, 2025 5:59p m R06.00 - Dyspnea, unspecified / PAIN IN R THIGH April 29, 2025 1:50pm 1 YEAR LABS May 27, 2025 12:51 pm 6MO LABS June 01, 2025 8:34 am INT LABS June 11, 2025 10:3 8am back pain June 14, 2025 8:52 am back pain June 23, 2025 10: 16am Reason for Referral Specialty Diagnoses / Procedures Referred By Contac t Referred To Contact Diagnoses Cirrhosis of liver without ascites, unspecified hepatic cirrhosis type Procedures US ABDOMEN RUQ/LIVER/GB Kelby Chance, TANK HOUSE OPERATOR-SURGICAL SALES REPRESENTATIVE [address] [place] [address] Referral ID Status Reason Start Date Expiration Date V isits Requested Visits Authorized [id number] New Request 12/19/2021 01/13/2023 1 1 Specialty Diagnoses / Procedures Referred By Contac t Referred To Contact Diagnoses Cirrhosis of liver without ascites, unspecified hepatic cirrhosis type Procedures US ABDOMEN RUQ/LIVER/GB Vaishnavi Fry, DO [address] [place] [address] Referral ID Status Reason Start Date Expiration Date V isits Requested Visits Authorized [id number] New Request 07/14/2022 08/08/2023 1 1 Specialty Diagnoses / Procedures Referred By Contac t Referred To Contact Diagnoses Cirrhosis of liver without ascites, unspecified hepatic cirrhosis type Procedures US ABDOMEN LIVER DOPPLER Kelby Chance, TANK HOUSE OPERATOR-SURGICAL SALES REPRESENTATIVE [address] [place] [address] Referral ID Status Reason Start Date Expiration Date V isits Requested Visits Authorized [id number] New Request 01/15/2023 02/09/2024 1 1 Specialty Diagnoses / Procedures Referred By Contac t Referred To Contact Diagnoses Other cirrhosis of liver Procedures CT ABDOMEN WITH AND WITHOUT CONTRAST ND CT SCAN OF ABDOMEN COMBO Vaishnavi Fry, DO [address] [place] [address] Referral ID Status Reason Start Date Expiration Date V isits Requested Visits Authorized [id number] New Request 07/13/2023 08/06/2024 1 1 Specialty Diagnoses / Procedures Referred By Contac t Referred To Contact Diagnoses SSS (sick sinus syndrome) PAF (paroxysmal atrial fibrillation) Procedures ECHOCARDIOGRAM LIMITED/FOLLOWUP ND ECHO HEART XTHORACIC,LIMITED ND DOPPLER ECHO HEART,LIMITED,F/U ND DOPPLER COLOR FLOW VELOCITY MAP Carla Damon, MBNADEGE [address] [place] [address] Referral ID Status Reason Start Date Expiration Date V isits Requested Visits Authorized [id number] New Request 03/17/2024 04/11/2025 1 1 Specialty Diagnoses / Procedures Referred By Contac t Referred To Contact Procedures ECG Aileen Phoenix, TANK HOUSE OPERATOR-SURGICAL SALES REPRESENTATIVE [address] [place] [address] Referral ID Status Reason Start Date Expiration Date V isits Requested Visits Authorized [id number] New Request 04/02/2024 04/27/2025 1 1 Specialty Diagnoses / Procedures Referred By Contac t Referred To Contact Diagnoses Other cirrhosis of liver Procedures US ABDOMEN RUQ/LIVER/GB Vaishnavi Fry, DO [address] [place] [address] Referral ID Status Reason Start Date Expiration Date V isits Requested Visits Authorized [id number] New Request 04/16/2024 05/11/2025 1 1 Specialty Diagnoses / Procedures Referred By Contac t Referred To Contact Diagnoses Other cirrhosis of liver Cirrhosis of liver without ascites, unspecified hepatic cirrhosis type Frailty Procedures US ABDOMEN RUQ/LIVER/GB Kelby Chance, TANK HOUSE OPERATOR-SURGICAL SALES REPRESENTATIVE [address] [place] [address] Referral ID Status Reason Start Date Expiration Date V isits Requested Visits Authorized [id number] New Request 12/05/2023 12/29/2024 1 1 Specialty Diagnoses / Procedures Referred By Contac t Referred To Contact Diagnoses Other cirrhosis of liver Procedures US ABDOMEN RUQ/LIVER/GB Kelby Chance Jayesh, TANK HOUSE OPERATOR-SURGICAL SALES REPRESENTATIVE [address] [place] [address] Referral ID Status Reason Start Date Expiration Date V isits Requested Visits Authorized [id number] New Request 10/22/2024 11/16/2025 1 1 Specialty Diagnoses / Procedures Referred By Contac t Referred To Contact Procedures HEMODIALYSIS Trina Graham, TANK HOUSE OPERATOR-SURGICAL SALES REPRESENTATIVE [address] [place], [place] [id number] Referral ID Status Reason Start Date Expiration Date V isits Requested Visits Authorized [id number] New Request 12/19/2024 01/13/2026 1 1 Specialty Diagnoses / Procedures Referred By Contac t Referred To Contact Procedures NO PHARMACOLOGICAL DVT PROPHYLAXIS Malcom Chicas MD [address] [place] [address] Referral ID Status Reason Start Date Expiration Date V isits Requested Visits Authorized [id number] New Request 12/18/2024 01/12/2026 1 1 Specialty Diagnoses / Procedures Referred By Contac t Referred To Contact Procedures DVT/VTE RISK ASSESSMENT Malcom Chicas MD [address] [place] [address] Referral ID Status Reason Start Date Expiration Date V isits Requested Visits Authorized [id number] New Request 12/18/2024 01/12/2026 1 1 Additional Source Comments (unrecognized sect ion and content) No Status Records FoundNo Status Records FoundNo Status Records FoundNo Status Records FoundNo Status Records Found INFORMATION SOURCE (unrecogn ized section and content) DATE CREATED AUTHOR 06/25/2021 [facility] [employer] [facility] DATE CREATED AUTHOR AUTHOR'S ORGANIZ ATION 12/26/2021 [facility] DATE CREATED AUTHOR AUTHOR'S ORGANIZ ATION 04/18/2025 [facility] DATE CREATED AUTHOR AUTHOR'S ORGANIZ ATION 07/17/2025 [facility] DATE CREATED AUTHOR AUTHOR'S ORGANIZ ATION 07/17/2025 [facility] Goals (unrecognized section and content) Goals [...] type Procedures US ABDOMEN RUQ/LIVER/GB Kelby Chance APRN-SURGICAL SALES REPRESENTATIVE [address] [place] [address] Referral ID Status Reason Start Date Expiration Date V isits Requested Visits Authorized [id number] New Request 12/19/2021 01/13/2023 1 1 Reason Comments Follow-up Reason Comments Follow-up Cirrhosis Reason Comments Cystoscopy Specialty Diagnoses / Procedures Referred By Pricila anthony Referred To Contact Urology Diagnoses Abnormal radiologic findings on diagnostic imaging of renal pelvis, ureter, or bladder Procedures ND CYSTOURETHROSCOPY FOR DIAGNOSIS Mingo Shine MD [address] [place] [address] Referral ID Status Reason Start Date Expiration Date V isits Requested Visits Authorized [id number] New Request 02/06/2023 03/02/2024 1 1 Reason Onset Date Comments Medication Refill 10/03/2023 Specialty Diagnoses / Procedures Referred By Contac t Referred To Contact Diagnoses SSS (sick sinus syndrome) PAF (paroxysmal atrial fibrillation) Procedures ECHOCARDIOGRAM LIMITED/FOLLOWUP ND ECHO HEART XTHORACIC,LIMITED ND DOPPLER ECHO HEART,LIMITED,F/U ND DOPPLER COLOR FLOW VELOCITY MAP Carla Damon MBBS [address] [place] [address] Referral ID Status Reason Start Date Expiration Date V isits Requested Visits Authorized [id number] New Request 03/17/2024 04/11/2025 1 1 Specialty Diagnoses / Procedures Referred By Contac t Referred To Contact Diagnoses SSS (sick sinus syndrome) SSS (sick sinus syndrome) [I49.5] Procedures ND RMVL IMPLTBL DFB PLSE GEN W/REPL PLSE GEN 1 LEAD ICD GENERATOR CHANGEOUT Ronnie Ferrari MD [address] [facility] 2[address] [place] [address] [facility] [address] [place] [address] Referral ID Status Reason Start Date Expiration Date Visits Re quested Visits Authorized [id number] 1 1 Reason Comments Follow-up Patient's state s he gets tired often. Reason Comments Cirrhosis Cirrhosis of liver w ithout ascites, unspecified hepatic cirrhosis type Follow-up Reason Comments Follow-up Pt is being seen for 6 month follow up. Specialty Diagnoses / Procedures Referred By Contac t Referred To Contact Diagnoses Issues with Carly Saab MD [address] [place] [address] [facility] [address] [place] [address] Referral ID Status Reason Start Date Expiration Date Visits Re quested Visits Authorized [id number] 1 1 Reason Comments Follow-up Pt's states he was in the hospital at [facility] in 02/13/2025- 03/09/2025 for pneumonia, rectal bleeding, cat scan of abdomen and gastric emptying test done at [place]. Reason Comments CoPat Start Care Teams (unrecognized sec tion and content) Radiator Specialist Relationship Specialty Start Date End Date Vinny Atkinson MD [address] [place] [phone] PCP - General Family Medicine 02/26/21 Jeff Grullon MD [address] [facility] [place] [address] Cardiovascular Medicine 05/19/13 Karthikeyan Turner MB/CHB [address] [place] [address] Oncologist Hematology 08/28/21 Bruce Calderon DO [address] [place] [address] Edge Bander Operator Nephrology 08/28/21 Isaac Min MD [address] [place] [address] Physical Therapy Resident Pulmonary Disease 08/28/21 Radiator Specialist Relationship Specialty Start Date End Date Vinny Atkinson MD [address] [place] [phone] PCP - General Family Medicine 02/26/21 Jeff Grullon MD [address] [facility] [place] [address] Cardiovascular Disease 05/19/13 Karthikeyan Turner MB/CHB [address] [place] [address] Oncologist Hematology 08/28/21 Bruce Calderon DO [address] [place] [address] Edge Bander Operator Nephrology 08/28/21 Isaac Min MD [address] [place] [address] Physical Therapy Resident Pulmonary Disease 08/28/21 Team Status: Active Member [...] Atkinson MD Referring Provider Active Deja Jewell [employer]AS GOODS MAKER, [employer]AS GOODS MAKER-C Attending Provider Active Dr. Castro Ferrara DO [...] Vinny Atkinson MD Primary Care Provider, Family Pr ovider Active Dr. Jeff Grullon MD Attending Provider, Referring Provider Active Dr. Katrhikeyan Turner MD Other Provider Active Dr. Pedro Melton MD Other Provider Active LETICIA SUAREZ Other Provider Active Dr. Bruce Calderon DO Other Provider Active MERON LAMA Other Provider Active Dr. Timmy Miranda MD Other Provider Active JUDY DAVIS Other Provider Active Dr. Castro Ferrara DO Other Provider Active Team Status: Inactive Member Role Status Dates Dr. Castro Ferrara DO Primary Care Provider Active Dr. Jeff Grullon MD Attending Provider, Referring Provider Active Dr. Kody Friend , DO Other Provider Active Dr. Vinny [...] Dr. Timmy Miranda MD Other Provider Active JUDY DAVIS Other Provider Active Team Status: Active Member Role Status Dates Dr. Castro Ferrara , DO Primary Care Provider Active JUDY DAVIS Attending Provider, Referring Provide r Active Team Status: Inactive Member Role Status Dates Dr. Castro Ferrara , DO Primary Care Provider Active Dr. Jeff Grullon MD Attending Provider, Referring Provider Active Team Status: Inactive Member Role Status Dates Dr. Castro Ferrara , DO Primary Care Provider Active JUDY DAVIS Attending Provider, Referring Provide r Active Team Status: Inactive Member Role Status Dates Dr. Castro Ferrara , DO Primary Care Provider Active Dr. Jeff Gruloln MD Attending Provider, Referring Provider Active Dr. Kody Zheng , DO Other Provider Active Dr. Vinny Atkinson MD Other Provider Active Dr. Timmy Miranda MD Other Provider Active JUDY DAVIS Other Provider Active Radiator Specialist Relationship Specialty Start Date End Date Vinny Atkinson MD [address] [place] [address] PCP - General Family Medicine 02/26/21 Jeff Grullon MD [address] [facility] [address] [place] [phone] Cardiovascular Disease 05/19/13 Karthikeyan Turner MB/CHB [address] [place], [place] [phone] Oncologist Hematology 08/28/21 Bruce Calderon DO [address] [place] [phone] Edge Bander Operator Nephrology 08/28/21 Isaac Min MD [address] [place] [address] Physical Therapy Resident Pulmonary Disease 08/28/21 Team Status: Inactive Member [...] Dr. Timmy Miranda MD Other Provider Active JUDY DAVIS Other Provider Active MERON LAMA Other Provider Active Team Status: Active Member Role Status Dates Dr. Castro Ferrara , DO Primary Care Provider Active Claudio Garrison MD Emergency Provider Active Dr. Karthikeyan Rothman MD Admit Provider, Attending Pro vider Active Team Status: Active Member Role Status Dates Dr. Castro Ferrara DO Primary Care Provider Active Claudio Garrison [...] Attending Provider, Other Prov ider Active Dr. Bruce Calderon , DO Other Provider Active Dr. Mimi Centeno MD Other Provider Active Team Status: Active Member Role Status Dates Dr. Castro Ferrara , DO Primary Care Provider Active Dr. Kody Zheng , DO Attending Provider Active Team Status: Active Member Role Status Dates Dr. Castro Ferrara , DO Primary Care Provider Active Claudio Garrison MD Emergency Provider Active Dr. Krathikeyan Rothman MD Admit Provider, Other Provide r Active Dr. Kody Zheng , DO Other Provider Active Dr. Bruce Calderon , DO Other Provider Active Dr. Mimi Centeno MD Attending Provider, Other Provid er Active Team Status: Inactive Member Role Status Dates Dr. Castro Ferrara , DO Primary Care Provider Active Claudio Garrison MD Emergency Provider Active Dr. Karthikeyan Rothman MD Admit Provider, Other Provide r Active Dr. Kody Zheng , DO Other Provider Active Dr. Bruce Calderon , DO Other Provider Active Dr. [...] Dr. Timmy Miranda MD Other Provider Active JUDY DAVIS Other Provider Active MERON LAMA Other [...] Attending Provider, Other Prov ider Active Dr. Bruce Calderon , DO Other Provider Active Dr. Mimi Centeno MD Referring Provider, Other Provid er Active Team Status: Active Member Role Status Dates Dr. Castor Ferrara , DO Primary Care Provider Active Dr. Kody Zheng , DO Attending Provider Active Dr. Mimi Centeno MD Referring Provider Active Team Status: Inactive Member Role Status Dates Dr. Castro Ferrara , DO Primary Care Provider, Referrin g Provider Active Sue Roberts [employer] MAKER, [employer] MAKER-C Attending Provider Active Team Status: Inactive Member Role Status Dates Dr. Castro Ferrara , DO Primary Care Provider Active Sue Roberts [employer] MAKER, [employer] MAKER-C Attending Provider, Referrin g Provider Active Radiator Specialist Relationship Specialty Start Date End Date Castro Ferrara DO [address] [address] [place] [address] PCP - General Family Medicine 02/03/23 Jeff Grullon MD [address] [facility] [address] [place] [phone] Cardiovascular Disease 05/19/13 Karthikeyan Turner MB/CHB [address] [place], [place] [address] Oncologist Hematology 08/28/21 Bruce Calderon DO [address] [facility] [address] [place] [phone] Edge Bander Operator Nephrology 08/28/21 Isaac Min MD [address] [place] [phone] Physical Therapy Resident Pulmonary Disease 08/28/21 Team Status: Inactive Member Role Status Dates Dr. Castro Ferrara DO Primary Care Provider, Referrin g Provider Active Deja Jewell [employer] MAKER, [employer] MAKER-C Attending Provider Active Team Status: Inactive Member [...] Ferrara DO Primary Care Provider Active Dr. Matt [...] Care Provider Active Dr. Kody Zheng , Other Provider Active Dr. Vinny Atkinson MD Other Provider Active Dr. Timmy Miranda MD Other Provider Active JUDY DAVIS Other Provider Active MERON LAMA Other Provider Active Dr. Niels Flores MD Attending Provider, Referring Pro vider Active Team Status: Inactive Member Role Status Dates Dr. Castro Ferrara DO Primary Care Provider Active Dr. Matt Palafox , Attending Provider, Emergency P nelly Active Radiator Specialist Relationship Specialty Start Date End Date Castro Ferrara DO [address] [place] [address] [place] [address] PCP - General Family Medicine 02/03/23 Jeff Grullon MD [address] [facility] [place] [phone] Cardiovascular Disease 05/19/13 Karthikeyan Turner MB/ASAD [address] [place], [place] [phone] Oncologist Hematology 08/28/21 Bruce Calderon DO [address] [place] [address] Edge Bander Operator Nephrology 08/28/21 Isaac Min MD [address] [place] [address] Physical Therapy Resident Pulmonary Disease 08/28/21 Team Status: Inactive Member Role Status Dates Dr. Castro Ferrara DO Primary Care Provider, Referrin g Provider Active Esa Mckeon [employer] MAKER, [employer]VAS [employer] MAKER-C Attending Provider Active Team Status: Inactive Member Role Status Dates Dr. aCstro Ferrara DO Primary Care Provider, Referrin g [...] Castro Ferrara DO Primary Care Provider Active JUDY DAVIS Attending Provider Active Radiator Specialist Relationship Specialty Start Date End Date Castro Ferrara DO [address] [place] [address] [place] [address] PCP - General Family Medicine 02/03/23 Jeff Grullon MD [address] [facility] [place] [address] Cardiovascular Disease 05/19/13 Karthikeyan Turner MB/CHB [address] [place] [id number] Oncologist Hematology 08/28/21 Bruce Calderon DO [address] [phone] Edge Bander Operator Nephrology 08/28/21 Isaac Min MD [address] [place] [address] Physical Therapy Resident Pulmonary Disease 08/28/21 Team Status: Inactive Member [...] MERON LAMA Attending Provider, Referring Provider Active Radiator Specialist Relationship Specialty Start Date End Date Castro Ferrara DO [address] [place] [address] [place] [address] PCP - General Family Medicine 02/03/23 Jeff Grullon MD Cardiovascular Disease 05/19/13 Karthikeyan Turner MD [address] [place], [place] [phone] Oncologist Hematology 08/28/21 Bruce Calderon DO [address] [facility] [place] [address] Edge Bander Operator Nephrology 08/28/21 Isaac Min MD [address] [place] [address] Physical Therapy Resident Pulmonary Disease 08/28/21 Radiator Specialist Relationship Specialty Start Date End Date Castro Ferrara DO [address] [place] [address] [place] [phone] PCP - General Family Medicine 02/03/23 Karthikeyan Turner MD [address] [place], [place] [address] Oncologist Hematology 08/28/21 Bruce Calderon DO [address] [place] [address] Edge Bander Operator Nephrology 08/28/21 Isaac Min MD [address] [place] [address] Physical Therapy Resident Pulmonary Disease 08/28/21 Niels Flores MD [address] [place] [address] Cardiovascular Disease 04/02/24 Radiator Specialist Relationship Specialty [place] [address] [place] [address] [place] [address] [place] [address] PCP - General Family Medicine 02/03/23 Karthikeyan Turner MD [address] [place], [place] [address] Oncologist Hematology 08/28/21 Bruce Calderon DO [address] [place] [address] Edge Bander Operator Nephrology 08/28/21 Isaac Min MD [address] [place] [address] Physical Therapy Resident Pulmonary Disease 08/28/21 Niels Flores MD [address] [place] [address] Cardiovascular Disease 04/02/24 Radiator Specialist Relationship Specialty Start Date End Date Castro FerraraDO [address] [place] [address] [place] [address] PCP - General Family Medicine 02/03/23 Jeff Grullon MD [address] [facility] [place] [address] Cardiovascular Disease 05/19/13 Karthikeyan Turner MB/ASAD [address] [place], [place] [phone] Oncologist Hematology 08/28/21 Bruce Calderon DO [address] [place] [phone] Edge Bander Operator Nephrology 08/28/21 Isaac Min MD [address] [place] [address] Physical Therapy Resident Pulmonary Disease 08/28/21 Radiator Specialist Relationship Specialty Start Date End Date Castro Ferrara DO [address] [place] [address] [place] [address] PCP - General Family Medicine 02/03/23 Karthikeyan Turner MD [address] [place], [place] [phone] Oncologist Hematology 08/28/21 Bruce Calderon DO [address] [place] [address] Edge Bander Operator Nephrology 08/28/21 Isaac Min MD [address] [place] [address] Physical Therapy Resident Pulmonary Disease 08/28/21 Niels Flores MD [address] [place] [address] Cardiovascular Disease 04/02/24 Radiator Specialist Relationship Specialty Start Date End Date Castro Ferrara DO [address] [facility] [place] [address] PCP - General Family Medicine 02/03/23 Karthikeyan Turner MD [address], [place] [phone] Oncologist Hematology 08/28/21 Bruce Calderon DO [address] [place] [phone] Edge Bander Operator Nephrology 08/28/21 Isaac Min MD [address] [place] [phone] Physical Therapy Resident Pulmonary Disease 08/28/21 Niels Flores MD [address] [place] [address] Cardiovascular Disease 04/02/24 Team Status: Active Member [...] Provider Active Start: January 22, 2025 Dr. Bruce Calderon DO Attending Provider Active Start: January 22, 2025 Dr. Bruce Calderon DO Referring Provider Active Start: January [...] 2025 End: January 28, 2025 Esa Mckeon [employer]VAS GOODS MAKER, [employer]AS GOODS MAKER-C Attending Provider Active S tart: January 28, [...] February 12, 2025 End: February 13, 2025 Radiator Specialist Relationship Specialty Start Date End Date Castro Ferrara DO [address] [place] [address] PCP - General Family Medicine 02/03/23 Karthikeyan Turner MD [address] [place] [address] Oncologist Hematology 08/28/21 Bruce Calderon DO [address] [place] [address] Edge Bander Operator Nephrology 08/28/21 Isaac Min MD [address] [place] [address] Physical Therapy Resident Pulmonary Disease 08/28/21 Niels Flores MD [address] [place] [address] Cardiovascular Disease 04/02/24 Radiator Specialist Relationship Specialty Start Date End Date Castro Ferrara DO [address] [place] [address] PCP - General Family Medicine 02/03/23 Karthikeyan Turner MD [address] [place] [address] Oncologist Hematology 08/28/21 Bruce aClderon DO [address] [place] [address] Edge Bander Operator Nephrology 08/28/21 Isaac Min MD [address] [place] [address] Physical Therapy Resident Pulmonary Disease 08/28/21 Niels Flores MD [address] [place] [address] Cardiovascular Disease 04/02/24 Team Status: Inactive Member [...] 2025 End: March 25, 2025 Sue Roberts [employer] GOODS MAKER, [employer] MAKER-C Attending Provider Active Start: March 25, 2025 [...] End: April 08, 2025 Sue Roberts NP, [employer] GOODS MAKER-C Attending Provider Active Start: April 08, 2025 End: April 08, 2025 Sue Roberts NP, [employer] MAKER-C Referring Provider Active Start: April 08, 2025 End: April 08, 2025 Vaishnavi Bob NP-C Other Provider Active Start : April 08, 2025 End: April 08, 2025 Radiator Specialist Relationship Specialty Start Date End Date Castro Ferrara DO [address] [place] [address] PCP - General Family Medicine 02/03/23 Karthikeyan Turner MD [address] [place] [address] Oncologist Hematology 08/28/21 Bruce Calderon DO [address] [place] [address] Edge Bander Operator Nephrology 08/28/21 Isaac Min MD [address] [place] [address] Physical Therapy Resident Pulmonary Disease 08/28/21 Niels Flores MD [address] [place] [address] Cardiovascular Disease 04/02/24 Team Status: Active Member [...] 2025 End: April 29, 2025 Sue Roberts NP, [employer] Referring Provider Active Start: April 29, 2025 [...] 2025 End: January 28, 2025 Esa Mckeon [employer], [employer] Attending Provider Active S tart: January 28, [...] 2025 End: March 23, 2025 Vaishnavi Bob [employer] Referring Provider Active S tart: March 23, 2025 End: March 23, 2025 Team Status: Inactive Member Role/Relationship Status Dates Dr. Castro Ferrara DO Primary Care Provider Active Start: March 25, 2025 End: March 25, 2025 Dr. Castro Ferrara DO Referring Provider Active Start: March 25, 2025 End: March 25, 2025 Sue Roberts [employer], [employer] Attending Provider Active Start: March 25, 2025 [...] 2025 End: April 08, 2025 Sue Roberts [employer], [employer] Attending Provider Active Start: April 08, 2025 End: April 08, 2025 Sue Roberts [employer], [employer] Referring Provider Active Start: April 08, 2025 End: April 08, 2025 Vaishnavi Bob [employer] Other Provider Active Start : April 08, 2025 End: April 08, 2025 Team Status: Active Member Role/Relationship Status Dates Dr. Castro Ferrara DO Primary Care Provider Active Start: April 08, 2025 Dr. Jd Weeks DO Attending Provider Active S tart: April 08, 2025 Sue Roberts [employer], [employer] Referring Provider Active Start: April 08, 2025 [...] 2025 End: April 29, 2025 Sue Roberts [employer], [employer] Referring Provider Active Start: April 29, 2025 [...] Provider Active Start: May 25, 2025 Dr. Castro Ferrara DO Attending Provider Active Start: May 25, 2025 Team Status: Active Member Role/Relationship Status Dates Dr. Castro Ferrara DO Primary Care Provider Active Start: May 27, 2025 Dr. Castro Ferrara DO Attending Provider Active Start: May 27, 2025 Team Status: Active Member Role/Relationship Status Dates Dr. Karthikeyan Turner MD Attending [...] May 27, 2025 End: May 27, 2025 Team Status: Active Member [...] March 17, 2025 End: March 17, 2025 RADHA CaroC Attending Provider Active S tart: March 17, [...] March 23, 2025 End: March 23, 2025 RADHA CaroC Referring Provider Active S tart: March 23, 2025 End: March 23, 2025 Team Status: Inactive Member Role/Relationship Status Dates Dr. Castro Ferrara DO Primary Care Provider Active Start: March 25, 2025 End: March 25, 2025 Dr. Castro Ferrara DO Referring Provider Active Start: March 25, 2025 End: March 25, 2025 Sue Roberts NP, [employer] Attending Provider Active Start: March 25, 2025 [...] 2025 End: April 08, 2025 Sue Roberts [employer], [employer] Attending Provider Active Start: April 08, 2025 End: April 08, 2025 Sue Roberts [employer], [employer] Referring Provider Active Start: April 08, 2025 End: April 08, 2025 Vaishnavi Bob [employer] Other Provider Active Start : April 08, 2025 End: April 08, 2025 Team Status: Active Member Role/Relationship Status Dates Dr. Castro Ferrara DO Primary Care Provider Active Start: April 08, 2025 Dr. Jd Weeks DO Attending Provider Active S tart: April 08, 2025 Sue Roberts [employer], [employer] Referring Provider Active Start: April 08, 2025 Team Status: Active Member Role/Relationship Status Dates Dr. Castro Ferrara DO Primary Care Provider Active Start: April 13, 2025 Dr. Castro Ferrara DO Attending Provider Active Start: April 13, 2025 Team Status: Inactive Member Role/Relationship Status Dates Dr. Catsro Ferrara DO Primary Care Provider Active Start: [...] 2025 End: April 29, 2025 Sue Roberts [employer], [employer] Referring Provider Active Start: April 29, 2025 [...] Provider Active Start: May 25, 2025 Dr. Castro Ferrara DO Attending Provider Active Start: May 25, 2025 Team Status: Active Member Role/Relationship Status Dates Dr. Castro Ferrara DO Primary Care Provider Active Start: May 27, 2025 Dr. Castro Ferrara DO Attending Provider Active Start: May 27, 2025 Team Status: Inactive Member Role/Relationship Status Dates Dr. Castro Ferrara DO Primary Care Provider Active Start: May 27, 2025 End: May 27, 2025 Dr. Castro Ferrara DO Referring Provider Active Start: May 27, 2025 End: May 27, 2025 Dr. Karthikeyan Turner MD Attending Provider Active S tart: May 27, 2025 End: May 27, 2025 Team Status: Active Member Role/Relationship Status Dates Dr. Castro Ferrara DO Primary Care Provider Active Start: May 29, 2025 Dr. Castro Ferrara DO Attending Provider Active Start: May 29, 2025 Team Status: Active Member Role/Relationship Status Dates Dr. Karthikeyan Turner MD Attending Provider Active S tart: June 01, 2025 Dr. Vinny Atkinson MD Primary Care Provider Active Start: June 01, 2025 Dr. Vinny Atkinson MD Family Provider Active Sta rt: June 01, 2025 Dr. Vinny Atkinson MD Referring Provider Active Start: June 01, 2025 Dr. Jeff Grullon MD Other Provider Active St art: June 01, 2025 Team Status: Active Member Role/Relationship Status Dates Dr. Castro Ferrara DO Primary Care Provider Active Start: June 08, 2025 Dr. Castro Ferrara DO Attending Provider Active Start: June 08, 2025 Team Status: Active Member Role/Relationship Status Dates Dr. Castro Ferrara DO Primary Care Provider Active Start: June 10, 2025 Dr. Castro Ferrara DO Attending Provider Active Start: June 10, 2025 Team Status: Active Member Role/Relationship Status Dates Dr. Castro Ferrara DO Primary Care Provider Active Start: June 11, 2025 Jane Torres PA, PA Attending Provider Active Start: June 11, 2025 Jane Torres PA, PA Referring Provider Active Start: June 11, 2025 Team Status: Inactive Member Role/Relationship Status Dates Dr. Castro Ferrara DO Primary Care Provider Active Start: June 14, 2025 End: June 14, 2025 Dr. Pako Mendoza DO Emergency Provider Active Start: June 14, 2025 End: June 14, 2025 Team Status: Inactive Member Role/Relationship Status Dates Dr. Castro Ferrara DO Primary Care Provider Active Start: June 11, 2025 End: June 11, 2025 Jane Torres PA, PA Attending Provider Active Start: June 11, 2025 End: June 11, 2025 Jane Torres PA, PA Referring Provider Active Start: June 11, 2025 End: June 11, 2025 Team Status: Inactive Member Role/Relationship Status Dates Dr. Castro Ferrara DO Primary Care Provider Active Start: June 14, 2025 End: June 14, 2025 Dr. Pako Mendoza , DO Attending Provider Active Start: June 14, 2025 End: June 14, 2025 Dr. Pako Mendoza DO Emergency Provider Active Start: June 14, 2025 End: June 14, 2025 Team Status: Active Member Role/Relationship Status Dates Dr. Castro Ferrara DO Primary Care Provider Active Start: June 22, 2025 Dr. Castro Ferrara DO Attending Provider Active Start: June 22, 2025 Team Status: Inactive Member Role/Relationship Status Dates Dr. Castro Ferrara DO Primary Care Provider Active Start: June 23, 2025 End: June 24, 2025 Dr. Amy Viramontes DO Emergency Provider Active S tart: June 23, 2025 End: June 24, 2025 Radiator Specialist Relationship Specialty Start Date End Date Kaylin Sosa PCP - General Family Medicine 11/08/10 Jeff Grullon MD [address] [address] Cardiology 07/30/20 Continuous Active and Recently Administ ered Medications (unrecognized section and content) Medication Order 03/31/2024 04/01/2024 04/02/2024 Sodium chloride 0.9% IV solution 500 mL Intravenous, at 10 mL/hr, CONTINUOUS, Starting on Sun04/02/24 at 0745, Until Sun04/02/24 at 1530, KVO fluids, start the morning of procedure., Pre-op/Pre-Proc 0801 ($$New Bag$$ - Provider: Enrico Bateman, RN) PRN Medication Order 03/31/2024 04/01/2024 04/02/2024 [...] 1,500 mg, Intravenous, Administer over 1 Hours, STOCK[employer] ASSOCIATE TO PROCEDURE, 1 dose, Starting on Sun04/02/24 at 0000, Until Sun04/02/24 at 0902, Other, Preoperative antibiotic, Order should be timed for day of procedure. 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 Vancomycin is preferred agent for device implants, based on national, community and local ([facility]) MRSA rates., Pre-op/Pre-Proc 0802 ($$New Bag$$ - [...] Oral, DAILY AT BEDTIME, First dose on Jerrica 12/18/24 at 2100, Until Discontinued 2031 (Given - Provider: Rachael Platt RN) Cinacalcet (SENSIPAR) tablet 30 mg 30 mg, Oral, EVERY M, W & F, First dose on Sun12/19/24 at 0900, Until Discontinued 835 (Given - Provid er: Katherine Enciso RN) Cyclobenzaprine (FLEXERIL) tablet 10 mg 10 mg, Oral, EVERY 12 HOURS, First dose on Sun12/18/24 at 2100, Until Discontinued 2031 (Given - Provider: aRchael Platt RN) 08 (Given - Provider: Katherine [...] is needed. 08 (Given - Provid er: Ktaherine Enciso RN) Lactulose (CHRONULAC) oral solution 20 g 20 g, Oral, 2 TIMES DAILY, First dose (after last modification) on Sun12/18/24 at 1700, Until Discontinued, Monitor frequency of bowel movements, Titrate the dose for 2-3 soft bowel movements/day 174 (Given - Provider: Farrah Schfaer RN) 828 (Given - Provider: Katherine Enciso RN)1700 (Canceled Entry - Provider: System Discharge - Comment: Automatically canceled at discontinue of medication order) Levothyroxine (SYNTHROID) tablet 75 mcg 75 mcg, Oral, DAILY BEFORE BREAKFAST, First dose on Sun12/19/24 at 0600, Until Discontinued 626 (Given - Provid er: Rachael Platt RN) Pantoprazole (PROTONIX) tablet DR 40 mg 40 mg, Oral, DAILY, First dose on Sun12/18/24 at 1430, Until Discontinued, Swallow whole; do not crush or chew., Indications: Continuation of Home Therapy 151 (Given - Provider: Farrah Schafer RN) 0829 (Given - Provider: Katherine Enciso, GIO) sevelamer (RENVELA) tablet 800 mg 800 mg, [...] on Jerrica 12/18/24 at 1430, Until Discontinued 1513 (Given - Provider: Farrah Schafer RN) 0829 (Given - Provider: Katherine Enciso RN) PRN Medication Order 12/17/2024 12/18/2024 12/19/2024 Acetaminophen (TYLENOL) tablet 650 mg 650 mg, Oral, EVERY 6 HOURS NEEDED, Starting on Sun12/18/24 at 1402, Until Sun12/19/24 at 1904, Mild [...] 12/18/24 at 1402, Until Sun12/19/24 at 1904, Cough, Congestion Melatonin tablet 6 mg 6 mg, Oral, DAILY AT BEDTIME NEEDED, Starting on Sun12/18/24 at 1402, Until Sun12/19/24 at 1904, Insomnia midodrine (ProAmatine) tablet 10 mg 10 mg, Oral, DAILY NEEDED, Starting on Sun12/18/24 at 1358, Until Sun12/19/24 at 1904, Other, [...] Intravenous, EVERY 6 HOURS NEEDED, Starting on Sun12/18/24 at 1402, Until Sun12/19/24 at 1904, Nausea / Vomiting, 1st line for Nausea/Vomiting Polyethylene glycol (MIRALAX) packet 17 g 17 g, Oral, DAILY NEEDED, Starting on Sun12/18/24 at 1402, Until Sun12/19/24 at 1904, Constipation [...] Intravenous, EVERY 6 HOURS NEEDED, Starting on Sun12/18/24 [...] dose on Sun02/13/25 at 1315, Until Discontinued 0809 (Given - Provider: Sally Huff RN) Cyclobenzaprine (FLEXERIL) tablet 10 mg 10 mg, Oral, EVERY 12 HOURS, First dose on Sun02/13/25 at 1315, Until Discontinued 0848 (Given - Provider: Stella Swenson RN)2030 (Given - Provider: Che Cabrera RN) 08 (Given - Provider: Sally Huff RN)2122 (Given - Provider: Shana Rees, RN) 0809 (Given - Provider: Adeel Ramon, RN) Darbepoetin Yonis (ARANESP) injection 60 mcg [...] RN)2030 (Given - Provider: Che Cabrera RN) 807 (Given - Provider: Sally Huff RN)2122 (Given - Provider: Shana Rees, RN) 0809 (Given - Provider: Adeel Ramon, GIO) Fluconazole (DIFLUCAN) tablet 200 mg 200 mg, Oral, DAILY AT BEDTIME, First dose (after last modification) on Sun02/15/25 at 2100, Until Discontinued, Swallow tablet whole; do not crush, split or chew. Contact pharmacy if alternate route or dose is needed. 2030 (Given - Provider: Che Cabrera RN) 2122 (Given - Provider: Shana Rees, RN) Lactulose (CHRONULAC) oral solution 10 g [...] Syed RN) 0606 (Given - Provider: Che Cabrera, RN) 0558 (Given - Provider: Sagrario Guevara, GIO) midodrine (ProAmatine) tablet 10 mg 10 mg, Oral, CUSTOM FREQUENCY (Once per day on Sunday), First dose on Sun02/16/25 at 0900, Until Discontinued 0808 (Given - Provider: Sally Huff, GIO) 0809 (Given - Provider: Adeel Ramon, RN) Pantoprazole (PROTONIX) tablet DR 40 mg 40 mg, Oral, 2 TIMES DAILY, First dose on Sun02/18/25 at 1700, Until Discontinued, Swallow whole; do not crush or chew., Indications: Continuation of Home Therapy, GI Bleed 0849 (Given - Provider: Stella Swenson RN)1706 (Given - Provider: Stella Swenson, GIO) 0808 (Given - Provider: Sally Huff, GIO)1759 (Given - Provider: Sally Huff, GIO) 0809 (Given - Provider: Adeel Ramon, RN)1700 [...] dose on Sun02/13/25 at 1315, Until Discontinued 0809 (Given - Provider: Sally Huff RN) Cyclobenzaprine (FLEXERIL) tablet 10 mg 10 mg, Oral, EVERY 12 HOURS, First dose on Sun02/13/25 at 1315, Until Discontinued 0848 (Given - Provider: Stella Swenson RN)2030 (Given - Provider: Che Cabrera RN) 08 (Given - Provider: Sally Huff RN)2122 (Given - Provider: Shana Rees RN) 08 (Given - Provider: Adeel Ramon RN) Darbepoetin [...] RN)2030 (Given - Provider: Che Cabrera RN) 807 (Given - Provider: Sally Huff RN)2122 (Given - Provider: Shana Rees RN) 0809 (Given - Provider: Adeel Ramon, GIO) Fluconazole [...] Discontinued 0848 (Given - Provider: Stella Swenson RN)1704 (Given - Provider: Stella Swenson RN) 0848 [...] Sally Huff RN)1759 (Given - Provider: Sally Huff RN) 0809 (Given - Provider: Adeel Ramon RN)1700 (Canceled [...] 0809 (Given - Provider: Adeel Ramon RN) warfarin (COUMADIN) tablet 2 mg 2 [...] is needed. 170 (Given - Provider: Stella Swenson, GIO) Continuous Medication Order 03/04/2025 03/05/2025 03/06/2025 Heparin [...] cm Right femoral Label 1 Inactive 02/26/201302/17 Source Comments (unrecognize d section and content) In the event this informatio n is protected by the Federal Confidentiality of Alcohol and Drug Abuse Patient Records regulations: The Federal rules restrict any use of the information to criminally investigate or prosecute any alcohol or drug abuse patient.[facility] FOR RECORDS PERTAINING TO PATIENTS WHO ARE [...] BE BASED ON THE PRIMARY CLINICAL RECORDS. [facility] [employer] [facility]. provides no warranty or guarantee of the accuracy or completeness of information in this document.
[2025-07-20 11:34] LABS: Prothrombin Time (Protime)PT. 21.5 SECONDS (11.7-14.9)
== END ==
LOC: OLS.WHL 11:16
PROVIDERS: PCP Family Medicine; Visit Provider Internal Medicine
DX: I48.91 Unspecified atrial fibrillation (principal)
CPT/HCPCS: 85610

== ENCOUNTER 2025-08-09 03:21 | Inpatient (IN) | payer MEDICARE, OTHER, SELFPAY ==
[2025-08-09] VITALS (9 sets, daily range): BP systolic 104–127; BP diastolic 44–87; PULSE 70–93; RESP 14–18; TEMP 36.3–36.8; O2SAT 86–99; BMI 25.4
--- NOTE | 2025-08-09 03:39 | RAD_ITS ---
PROCEDURE: PELVIS 1 OR 2 VIEWS 08/09/2025 REASON FOR EXAM: PAIN TECHNIQUE: Procedure Code: RADPEL Modality: DX Procedure: PELVIS 1 OR 2 VIEWS COMPARISON: None. FINDINGS: Hardware: Surgical clips in the right pelvis. Bones: Acute nondisplaced right intertrochanteric femoral fracture. Joints: No dislocation of the right hip. soft tissues: No soft tissue abnormalities. Other: RAD/Pelvis 1 or 2 Views IMPRESSION: Acute nondisplaced right intertrochanteric femoral fracture. Reading Location: [id number]
--- NOTE | 2025-08-09 03:39 | RAD_ITS ---
PROCEDURE: FEMUR MIN 2 VIEWS 08/09/2025 REASON FOR EXAM: PAIN TECHNIQUE: Procedure Code: RADFEM Modality: DX Procedure: FEMUR MIN 2 VIEWS Laterality: Right COMPARISON: None. FINDINGS: Bones: Acute nondisplaced intratrochanteric fracture. Osteopenia which limits the evaluation. Joints: No dislocations. Arthritic changes of the right hip and right knee. Soft tissues: No soft tissue abnormalities. Other: RAD/Femur Min 2 Views IMPRESSION: Acute nondisplaced intratrochanteric fracture. Reading Location: [id number]
--- NOTE | 2025-08-09 03:39 | CT_ITS ---
PROCEDURE: BRAIN/HEAD WITHOUT CONTRAST 08/09/2025 REASON FOR EXAM: FALL TECHNIQUE: Procedure Code: CTBR Modality: CT Procedure: BRAIN/HEAD WITHOUT CONTRAST Coronal and Sagittal reconstruction series were provided. One or more dose reduction techniques were used (e.g., Automated exposure control, adjustment of the mA and/or kV according to patient size, use of iterative reconstruction technique. COMPARISON: CT head 07/15/2022 FINDINGS: There is no extra-axial or intra-axial intracranial hemorrhage. No mass effect or midline shift is seen. Generalized intracranial volume loss and findings compatible with chronic microvascular white matter ischemia. There is normal hart-white matter differentiation. The posterior fossa is grossly unremarkable. The skull is unremarkable. Visualized paranasal sinuses are clear. The mastoid air cells show normal translucency. CT/Brain/Head without Contrast IMPRESSION: 1. No intracranial hemorrhage. No mass effect or midline shift. 2. 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 Reading Location: [facility]
--- NOTE | 2025-08-09 03:56 | EX.ED.DYSGE1 ---
HPI History of Present Illness Chief Complaint: Fall Informant: patient and EMS Narrative Narrative: Patient is a 75[place]year[place] [facility] with past medical history of hypertension paroxysmal ventricular tachycardia currently on Coumadin as well as end-stage renal disease on dialysis. He states that he was lying in bed sleeping when he must have "rolled over" and fell out of bed landing on his right side. He states that he awoke when he struck the ground and has pain in his right hip/leg region. He states he has injured his hip/leg before and this feels similar nature. Therefore with concern for underlying trauma EMS was called and he was sent in for evaluation [facility] Medical History Pleural effusion associated with hepatic disorder ABLA (acute blood loss anemia) Anemia requiring transfusions Atherosclerotic heart disease of [place] coronary artery without angina pectoris Cirrhosis HLD (hyperlipidemia) Other specified cardiac dysrhythmias ESRD (end stage renal disease) on dialysis CKD stage G5/A1, GFR <15 and albumin creatinine ratio <30 mg/g Sepsis Vitamin D insufficiency Polyneuropathy Mild cognitive impairment Epilepsy MCFP (current) use of anticoagulants History of rheumatic fever as a child COVID-19 Infectious endocarditis Non-ST elevation (NSTEMI) myocardial infarction CAD (coronary artery disease) History of pacemaker Coagulopathy Airway intubation performed without difficulty Cardiopulmonary arrest with successful resuscitation Hypothyroidism (acquired) Abnormal results of thyroid function studies Hyperthyroidism MIA (obstructive sleep apnea) Dyspnea Non-rheumatic mitral regurgitation Non-rheumatic mitral valve stenosis Iron deficiency History of diffuse large B-cell lymphoma Anemia in chronic kidney disease Pure hypercholesterolemia Biventricular cardiac pacemaker in situ (~05/26/16) Encounter for long-term (current) use of high-risk medication 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, 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 TIA (transient ischemic attack) (~11/19/15) History of DVT (deep vein thrombosis) Gout Paroxysmal ventricular tachycardia Atrial flutter Cardiomyopathy in disease classified elsewhere MRSA (methicillin resistant Staphylococcus aureus) infection History of non-Hodgkin's lymphoma Endocarditis due to Staphylococcus Benign essential hypertension Home Medications Medication Instructions Recorded Last Taken Type levothyroxine 75 mcg tablet 75 mcg PO DAILY thyroid 08/24/21 12/16/24 History vitamin B complex-vitamin C-folic 1 tab PO DAILY vitamin 01/10/22 12/16/24 History acid 0.8 mg tablet (Nephro-Baltazar) doxycycline hyclate 100 mg tablet 100 mg PO BID infection 11/27/22 12/16/24 History fluconazole 200 mg tablet 200 mg PO DAILY 06/11/23 12/16/24 History albuterol sulfate 90 mcg/actuation 2 puff inhalation Q4-6H PRN 03/19/24 Unknown History aerosol inhaler shortness of breath or wheezing cyclobenzaprine 10 mg tablet 10 mg PO BID 05/28/24 12/16/24 History pantoprazole 40 mg tablet,delayed 40 mg PO QAM #90 tabs 12/01/24 12/16/24 Rx release warfarin 1 mg tablet (Jantoven) 2 mg PO .satsun 12/16/24 12/16/24 History warfarin 2 mg tablet 1 mg PO .-sun12/16/24 12/15/24 History amoxicillin 500 mg capsule 2,000 mg PO DAILY PRN DENTAL 12/17/24 Unknown History TREATMENT triamcinolone acetonide 0.1 % 1 applic topical BID PRN SKIN 12/17/24 Unknown History 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 lactulose 10 gram/15 mL oral 20 ml PO QDAY 01/28/25 Unknown History solution (Constulose) metoclopramide HCl 5 mg tablet 2.5 mg (1/2 x 5 mg) PO QAC #50 tabs 03/17/25 Unknown Rx midodrine 10 mg tablet See Rx Instructions PO .COMPLEX To 03/25/25 Unknown History keep BP up during dialysis alprazolam 1 mg tablet (Xanax) 1 mg PO QHS Sleep 05/27/25 Unknown History sucroferric oxyhydroxide 500 mg 500 mg PO TID To reduce phosphorus 05/27/25 Unknown History chewable tablet (Velphoro) in blood amino acids-protein hydrolysate 16 30 ml PO DAILY 06/23/25 Unknown History gram-100 kcal/30 mL oral liquid (Liquacel) docusate sodium 100 mg capsule 100 mg PO DAILY 06/23/25 Unknown History (Colace) docusate sodium 100 mg capsule 200 mg PO QHS 06/23/25 Unknown History (Colace) oxycodone 5 mg tablet 5 mg PO Q6H PRN PRN pain 08/09/25 Unknown History Allergy/AdvReac Type Severity Reaction Status Date / Time No Known Allergies Allergy Verified 08/09/25 03:22 Family History Father CAD (coronary artery disease) CABG Brother CAD (coronary artery disease) CABG Mother Diabetes Sister Breast cancer Diabetes Sister Cancer breast Diabetes Surgical History History of esophagogastroduodenoscopy (EGD) History of colonoscopy S/P arteriovenous (AV) fistula repair History of mechanical aortic valve replacement (~08/24/03) History of heart valve replacement with mechanical valve History of atrioventricular chiquita ablation History of heart valve replacement with mechanical valve History of evacuation of hematoma History of cholecystectomy History of appendectomy dual chamber pacemaker implantation (~10/2010) History of aortic valve replacement (~08/2003) History of mitral valve repair (~08/24/03) History of mechanical aortic valve replacement (~1986) Social History household members: spouse housing: house current occupational status: retired current occupational exposures/hazards: No history of recent travel: No Smoking Status: Never smoker alcohol intake: never substance use type: does not use caffeine: No what type of physical activity do you participate in: weight training and other details: Nustep frequency: 3-4 times per week duration: 45-60 minutes/day seatbelt use: always do you feel safe at home: Yes ROS ROS ED Constitutional Constitutional ED: Denies chills or fever(s) Eyes Eyes: Denies blurry vision or change in vision ENT ENT ED: Denies sore throat Cardiovascular Cardiovascular: Denies chest pain, palpitations or racing heartbeat Respiratory/Chest Respiratory/Chest: Denies cough or dyspnea Gastrointestinal Gastrointestinal: Denies abdominal pain, diarrhea, nausea or vomiting Musculoskeletal Musculoskeletal: Reports other Details: Positive right hip/leg pain ; Denies back pain or neck pain Integumentary Denies Abrasions Neurologic Neurologic: Denies headache(s) Hematologic/Lymphatic Hematologic/Lymphatic: Reports easy bleeding and easy bruising EXAM Physical Exam Const Vital Signs: 08/09/25 03:22 08/09/25 03:22 08/09/25 04:15 Temperature 97.4 F L Temperature Source Oral Pulse Rate 84 Respiratory Rate 16 Respiratory Effort Normal Respiratory Depth Normal Respiratory Pattern Normal Blood Pressure 127/58 H Blood Pressure Mean 81 Pulse Ox 93 86 Oxygen Delivery Method Room Air Room Air Room Air Oxygen Flow Rate (L/min) 08/09/25 04:16 08/09/25 06:17 08/09/25 08:00 Temperature Temperature Source Pulse Rate 72 70 Respiratory Rate 16 18 Respiratory Effort Respiratory Depth Respiratory Pattern Blood Pressure 126/50 H 109/47 L Blood Pressure Mean 75 67 Pulse Ox 99 95 96 Oxygen Delivery Method Nasal Cannula Nasal Cannula Room Air Oxygen Flow Rate (L/min) 2 2 Positive well nourished and well developed General Appearance ED: well developed HEENT HEENT Narrative: Normocephalic atraumatic No signs of depressed or basilar skull fracture Eyes PERRL and EOMs intact bilaterally General Eye ED: Negative for scleral icterus Neck supple Neck Narrative: No bony deformity or step-off of the cervical spine; no midline tenderness to palpation Chest Wall palpation of chest normal Chest Narrative: Chest wall stable there is no bony deformity or crepitus noted No pain on palpation Dialysis catheter in the right upper chest wall without surrounding secondary soft tissue skin findings to suggest trauma or infection. Resp normal respiratory effort and clear to auscultation bilaterally Resp Narrative: Breath sounds are diminished throughout but overall clear to auscultation without signs of respiratory distress Cardio regular rate and regular rhythm GI non-tender, non-distended and no masses GI Narrative: Soft nontender nondistended with hypoactive bowel sounds. No voluntary guarding or rigidity or pulsatile mass Auscultation: hypoactive bowel sounds Palpation: soft Back/Spine Back/Spine Narrative: No bony deformity or step-off of the thoracic or lumbar spine; no midline tenderness to palpation Extremity Extremity Narrative: Pelvis is stable there is no shortening or external rotation of either lower extremity. There is pain on palpation just below the right greater trochanter and along the proximal third of the femur. However no obvious bony deformity or joint effusion. No ecchymosis or abrasions noted. Compartments are soft and compressible going against compartment syndrome There is increased pain with active and passive motion of the right leg No pain on palpation in the inguinal region Bilateral upper extremities are neurovascularly intact. No obvious bony deformity or joint effusion or sulcus sign noted. There is full active range of motion at bilateral upper elbows and shoulders. Neuro oriented x3 and CN's II-XII intact bilaterally Sensorium / Orientation: alert Psych mental status grossly normal Skin no rashes or lesions noted and no wounds Skin Narrative: No abrasions or ecchymosis noted MDM MDM MDM Narrative Medical decision making narrative: Patient arrived to the ER hemodynamically stable. He reported a mechanical fall out of bed and therefore I felt no need for cardiac or syncope workup. He is on Coumadin however and even though there are no signs of head injury there is concern for a subarachnoid or subdural hemorrhage. Therefore CT of the head was obtained. This revealed chronic findings without acute bleed or skull fracture. The right hip is not shortened or rotated but he has pain with palpation as well as active and passive range of motion concerning for fracture. X-rays were obtained and do show a nondisplaced intertrochanteric fracture which would correlate with his report of landing on his right side and pain. The patient is closed and neurovascularly intact. However he will need the area surgically fixed and secondary to this I discussed the case with orthopedic surgeon on-call Dr. Smith. He states from a surgical standpoint he feels comfortable keeping the patient at this facility to surgically fix the fracture. However because of his complex medical conditions he does recommend patient be admitted to the medical service. Therefore I discussed the case with the hospitalist on-call Dr. Kaur. Because the patient has history of CABG as well as AICD aortic and mitral valve repair and cardiomyopathy she recommends also consultation with cardiology. I discussed the case with Dr. Flores/operations vice president. He states that he cannot provide guidance about medical clearance until he evaluates the patient but states he will be willing to do so. He also recommended I discussed the case with anesthesia. Therefore the case was discussed with Dr. Prieto. He states from an anesthesia standpoint he feels comfortable being able to intubate the patient and provide anesthesia care for the provided surgery. However as he has a chronic large left pleural effusion with renal failure and most likely poor ejection fraction that he feels he will need to stay intubated status post surgery and will need to be kept in the ICU secondary to this. Once more discussed the case with the hospitalist and informed her of cardiology's willingness to see the patient as well as anesthesias reported willingness to provide care for the surgical case but that the patient will most likely need intubated for the next few days status post surgery. After informing her of the multiple consultations and their willingness to see the patient and perform evaluations for medical clearance and operation she states she will evaluate the patient in the ER at this time to make the final decision whether he is safe for admission at our facility or not. After evaluating the patient in the ER Dr. Kaur does feel comfortable excepting the patient to the hospital for continued medical management and therefore he will be admitted to her service at this time. Of note the chest x-ray shows a left-sided pleural effusion and chart review reveals a CT scan from May 29 of this year which noted an unchanged moderate left-sided pleural effusion and unchanged airspace consolidation in the left lower lobe with bilateral bibasilar atelectatic changes. I do feel this correlates with his x-ray today and even though his white blood cell count is elevated he does not have signs of infection to the skin and I do not believe there is true pneumonia present and this is most likely stress response and therefore we will hold off on antibiotics at this time. History & Record Review Discussion w/independent historian: Patient and Other (halfway) Additional record(s) reviewed:: Prior outpatient record and Prior ED visit Lab Data Attestation: I reviewed the patient's lab results. Labs: Laboratory Results - last 24 hr 08/09/25 06:44 WBC 14.2 H RBC 3.63 L Hgb 11.1 L Hct 35.0 L MCV 96.4 H MCH 30.6 MCHC 31.7 L RDW Std Deviation 61.9 H RDW Coeff of Jennifer 18.0 H Plt Count 184 MPV 10.3 Immature Gran % (Auto) 0.600 Neut % (Auto) 80.9 H Lymph % (Auto) 7.7 L [place] % (Auto) 6.0 Eos % (Auto) 4.3 Baso % (Auto) 0.5 Absolute Neuts (auto) 11.5 H Absolute Lymphs (auto) 1.10 Nucleated RBC % 0 PT 16.5 H INR 1.3 APTT 34.3 Sodium 134 Potassium 4.1 Chloride 95 L Carbon Dioxide 24.9 Anion Gap 14 BUN 25 H Creatinine 4.09 H Estim Creat Clear Calc 14.37 L Est GFR (MDRD) Non-Af 14 L BUN/Creatinine Ratio 6.2 L Glucose 99 Calcium 9.0 Phosphorus 2.5 L Radiography Diagnostic Testing: Clinical Impression(s) from Imaging Studies Brain CT 08/09/25 03:39 IMPRESSION: 1. No intracranial hemorrhage. No mass effect or midline shift. 2. 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 Reading Location: [id number] Femur X-Ray 08/09/25 03:39 IMPRESSION: Acute nondisplaced intratrochanteric fracture. Reading Location: [id number] Pelvis X-Ray 08/09/25 03:39 IMPRESSION: Acute nondisplaced right intertrochanteric femoral fracture. Reading Location: [id number] Chest X-Ray 08/09/25 06:38 IMPRESSION: Limited AP radiographs of the chest. Opacification of the right lower lung chavez may reflect underlying airway disease. Left pleural effusion. Reading Location: [id number] X-ray of the pelvis and right femur as interpreted by the emergency medicine physician reveals an acute nondisplaced intertrochanteric fracture Chest x-ray as interpreted by the emergency medicine physician reveals cardiomegaly with left-sided pleural effusion and atelectasis bilaterally Management Discussion w/another healthcare provider: Hospitalist and Wafer Fabrication Operator Discharge Plan Dx/Rx/DC Orders Clinical Impression: Closed intertrochanteric fracture of right femur, Benign essential hypertension, MCFP (current) use of anticoagulants, CAD (coronary artery disease), Cardiomyopathy, ESRD (end stage renal disease) on dialysis, Biventricular cardiac pacemaker in situ, HLD (hyperlipidemia) Disposition Disposition: Acute Care Hospital [facility]
[2025-08-09] MEDS: HYDROmorphone 0.5 MG/0.5 ML SYRINGE IV ×2 (05:58→07:52)
--- NOTE | 2025-08-09 06:38 | RAD_ITS ---
PROCEDURE: CHEST 1 VIEW (PORTABLE) 08/09/2025 REASON FOR EXAM: SURGICAL CLEARANCE TECHNIQUE: Frontal view of the chest. COMPARISON: Chest radiograph 02/12/2025. FINDINGS: Limited AP radiographs of the chest are provided. Opacification of the right lower lung chavez. Left pleural effusion. Prominent appearing cardiac silhouette, limited on AP projection. Degenerative changes of the thoracic spine. Right-sided dual lead permanent pacemaker. A right central venous catheter extends to the cavoatrial junction. Median sternotomy wires. RAD/Chest 1 View (Portable) IMPRESSION: Limited AP radiographs of the chest. Opacification of the right lower lung fie lds may reflect underlying airway disease. Left pleural effusion. Reading Location: [facility]
--- NOTE | 2025-08-09 06:38 | EKG12_ITS ---
Test Reason : PRE OP Blood Pressure : */* mmHG Vent. Rate : 71 BPM Atrial Rate : 76 BPM P-R Int : * ms QRS Dur : 138 ms QT Int : 502 ms P-R-T Axes : * 237 171 degrees QTcB Int : 545 ms Ventricular-paced rhythm Biventricular pacemaker detected Abnormal ECG Confirmed by AMINA VILLA MD ([id number]), film or videotape editor SIMON JARA ([id number]) on 08/10/2025 7:53:23 AM Referred By: Confirmed By: AMINA VILLA MD
[2025-08-09 06:53] LABS: Hematocrit 35.0 % (40-54); Hemoglobin 11.1 g/dL (13.0-16.5); Immature Granulocytes Count 0.090 X10^3/uL (0.0-0.0); Mean Corp Hgb Conc 31.7 g/dL (32-36); Mean Corpuscular Volume 96.4 fL (80-94); Mean Platelet Vol. 10.3 fl (6.2-12.0); NRBC Flagged by Analyzer 0 % (0-5); Platelet Count 184 K/mm3 (150-450); RBC Distribution Width CV 18.0 % (11.6-14.6); RBC Distribution Width SD 61.9 fl (35.1-43.9); Red Blood Count 3.63 M/mm3 (4.6-6.2); White Blood Count 14.2 K/mm3 (4.4-11.0)
[2025-08-09 07:03] LABS: Partial Thromboplast Time 34.3 Seconds (24.1-36.2); Prothrombin Time (Protime)PT. 16.5 SECONDS (11.7-14.9)
[2025-08-09 07:16] LABS: Anion Gap 14 (5-15); BUN 25 mg/dL (4-19); BUN/Creat Ratio 6.2 RATIO (10-20); Calcium,Total 9.0 mg/dL (7.6-11.0); Carbon Dioxide 24.9 mmol/L (21.0-32.0); Chloride 95 mmol/L (98-108); Estimated Creatinine Clearance 14.37 ml/min (50-250); Glucose 99 mg/dL (70-99); Potassium 4.1 mmol/L (3.3-5.1)
--- OUTSIDE RECORDS SUMMARY | 2025-08-09 08:31 | XMS RPT_ITS | CCD ---
Author Organization [facility] Care Team Providers Care Window Installer Name Role Phone GIO Cohen, Meron Goldberg Unavailable Unavailabl e GIO Cohen, Meron Goldberg Unavailable Unavailabl e PROVIDER, UNKNOWN Admitting Unavailable PROVIDER, UNKNOWN Attending Unavailable PROVIDER, UNKNOWN Admitting Unavailable PROVIDER, UNKNOWN Attending Unavailable Dr. Vinny Atkinson Primary Care Provider Dr. Vinny Atkinson Referring Provider Linda DOG CONTROL OFFICER, DOG CONTROL OFFICER-C Esa Norwood Attending Provider Isis Arec Attending Provider Unavailable Dr. Ford Wen Attending Provider Dr. Ford Wen Referring Provider MD Bruce Calderon Referring Provider Unavailable Dr. Timmy Miranda Attending Provider Dr. Lenora Victoria Referring Provider Dr. Marquis Gomes Emergency Provider Dr. Lenora Victoria Admit Provider Dr. Ford March Other Provider Dr. Jd Weeks Attending Provider Dr. Jd Weeks Other Provider Dr. Bruce Calderon Other Provider Dr. Siddharth Chowdhury Other Provider Dr. Siddharth Chowdhury Attending Provider Alejandra DOG CONTROL OFFICER, DOG CONTROL OFFICER-C Sue Attending Provider Alejandra DOG CONTROL OFFICER, DOG CONTROL OFFICER-C Sue Referring Provider Alejandra DOG CONTROL OFFICER, RADHAC Sue Other Provider Dr. Isaac Min Attending Provider Dr. Vinny Atkinson Primary Care Provider Dr. Vinny Atkinson Referring Provider Isis Arce Attending Provider Unavailable Jeff Grullon MD Unavailable Vinny Atkinson MD Primary Care Provider [facility] MB/CHBKarthikeyan Unavailable Bruce Calderon DO Unavailable sIaac Min MD Unavailable Dr. Jodi Friedman Emergency Provider Dr. Ligia Peralta Admit Provider Unavailable Dr. Ligia Peralta Attending Provider Unavailable Fabian, Dr. Morel Other Provider Unavailable Dr. Rolo Mireles Other Provider Dr. Kody Zheng Attending Provider Dr. Vinny Atkinson Primary Care Provider Dr. Ford Wen Attending Provider Dr. Vinny Atkinson Primary Care Provider Dr. Vinny Atkinson Referring Provider Dr. Bruce Calderon Other Provider [phone] Ligia Peralta Referring Provider Unavailable Dr. [...] Provider Dr. Ligia Peralta Admit Provider Unavailable Dr. Ligia Peralta Attending Provider Unavailable Dr. Ligia Peralta Other Provider Unavailable Dr. Ajith Mireles Other [...] Provider Dr. Vinny Atkinson Referring Provider Best DOG CONTROL OFFICER, DOG CONTROL OFFICER-C Deja Goldberg Attending Provider [phone] Dr. Castro Ferrara Primary Care Provider Dr. Timmy Miranda Attending Provider Dr. Jeff Grullon Attending Provider Isis Arce Attending Provider Unavailable Jeff Grullon MD Unavailable Vinny Atkinson MD Primary Care Provider [facility] GUERO/Karthikeyan KAMARA Unavailable Bruce Calderon DO Unavailable Isaac Min MD Unavailable MD Claudio Garrison Emergency Provider Dr. Karthikeyan Rothman Admit Provider Dr. Karthikeyan Rothman Attending Provider Dr. Karthikeyan Rothman Other Provider Dr. Kody Zheng Attending Provider [phone] Norm, Dr. Gates Other Provider [phone] Bruce Calderon Other Provider [phone] Dr. Mimi Centeno Other Provider Dr. Mimi Centeno Attending Provider Dr. Vinny Atkinson Referring Provider Dr. Timmy Miranda Attending Provider Dr. Castro Ferrara Primary Care Provider [phone] Jeff Grullon Attending Provider MD Claudio Garrison Emergency Provider Dr. Karthikeyan Rothman Admit Provider Dr. Karthikeyan Rothman Attending Provider Dr. Karthikeyan Rothman Other Provider Dr. Kody Zheng Attending Provider [phone] Dr. Kody Zheng Other Provider [phone] Bruce Calderon Other Provider [phone] Mimi Centeno Other Provider Dr. Mimi Centeno Attending Provider Dr. Castro Ferrara Attending Provider Dr. Vinny Atkinson Referring Provider Dr. Castro Ferrara Primary Care Provider Dr. Mimi Centeno Referring Provider Dr. Castro Ferrara Referring Provider Dr. Niels Flores Attending Provider [phone] Alejandra DOG CONTROL OFFICER, DOG CONTROL OFFICER-C Sue Attending Provider Castro Ferrara DO Primary Care Provider Dr. Castro Ferrara Primary Care Provider Dr. Jeff Grullon Attending Provider Best BUSTOS, JULI-C Deja Goldberg Attending Provider [phone] Dr. Ford Wen Attending Provider Dr. Ford Wen Referring Provider Dr. Ford Wen Other Provider Dr. Castro Ferrara Primary Care Provider [phone] Dr. Jeff Grullon Attending Provider [phone] MD Claudio Garrison Emergency Provider Dr. Karthikeyan [...] Dr. Niels Flores Attending Provider [phone] Alejandra BUSTOS, JULI-Eileen Rogers Attending Provider Best BUSTOS, AMY Goldberg Attending Provider [phone] Dr. Ford Wen Attending Provider [phone] Ford Wen Referring Provider Dr. Ford Wen Other Provider Dr. Castro Ferrara Primary Care Provider MD Claudio Garrison Emergency Provider Dr. Karthikeyan Rothman Admit Provider Dr. Karthikeyan Rothman Other Provider Norm, Dr. Gates Other Provider Dr. Bruce Calderon Other Provider Dr. Mimi Centeno Other Provider Norm, Dr. Gates Attending Provider Dr. Mimi Centeno Referring Provider Bertha KEMP, PA-C Trina Attending Provider Dr. Timmy Miranda Attending Provider Aniya Box Attending Provider Unavailable Mitchel NIX, Jeff Robetrs Unavailable Johnny JACK/CHBKarthikeyan Unavailable Bruce Calderon DO Unavailable Isaac Min MD Unavailable Castro Ferrara DO Primary Care Provider Dr. Castro Ferrara Primary Care Provider [phone] Dr. Castro Ferrara Attending Provider [phone] Castro Ferrara Referring Provider Dr. Karthikeyan Turner Attending Provider Roof DOG CONTROL OFFICER, DOG CONTROL OFFICER-C Esa Norwood Attending Provider Dr. Castro Ferrara Primary Care Provider [phone] Dr. Castro Ferrara Attending Provider Dr. Castro Ferrara Referring Provider Dr. Castro Ferrara Primary Care Provider [phone] Dr. Castro Ferrara Referring Provider Roof DOG CONTROL OFFICER, DOG CONTROL OFFICER-C Esa Norwood Attending Provider Dr. Castro Ferrara Attending Provider Dr. Timmy Miranda Attending Provider Isis Arce Attending Provider Unavailable Dr. Isaac Min Attending Provider Dr. Castro Ferrara Primary Care Provider Dr. Castro Ferrara Attending Provider Dr. Castro Ferrara Referring Provider Dr. Niels Flores Attending Provider Roof DOG CONTROL OFFICER, DOG CONTROL OFFICER-C Esa Norwood Attending Provider Mitchel NIX, Jeff Roberts Unavailable Johnny NIX, Karthikeyan Unavailable Niels Flores MD Unavailable Dr. Castro Ferrara DO Primary Care Provider Dr. Castro Ferrara DO Attending Provider Dr. Castro Ferrara DO Referring Provider Dr. Timmy Miranda MD Attending Provider Dr. Timmy Miranda MD Referring Provider Dr. Diego Reaves DO Attending Provider [phone] Dr. Diego Reaves DO Emergency Provider Dr. Diego Reaves DO Referring Provider Dr. Alonso Abdullahi MD Attending Provider Dr. Marquis Gomes DO Attending Provider [phone] Dr. Marquis Gomes DO Emergency Provider KELBY CHANCE Attending Provider KELBY CHANCE Referring Provider Dr. Bruce Calderon DO Attending Provider Dr. Bruce Calderon DO Referring Provider Mark NIX, Dr. Bowser Attending Provider Isis Arce Attending Provider Unavailable Linda DOG CONTROL OFFICER-C, Esa Norwood Attending Provider Jomar LOPEZ, Dr. Linn Emergency Provider Karthikeyan Turner MD Unavailable Kvng LOPEZ, Bruce Unavailable Isaac Min MD Unavailable Unavailable Josias LOPEZ, Castro Clemons Primary Care Provider Niels Goff MD Unavailable Unavailable Josias LOPEZ, Dr. Hernandez Primary Care Provider Josias LOPEZ, Dr. Hernandez Attending Provider Josias LOPEZ, Dr. Hernandez Referring Provider Jomar LOPEZ, Dr. Linn Attending Provider [phone] Paulino DOG CONTROL OFFICER-C, Vaishnavi Attending Provider [phone] Paulino DOG CONTROL OFFICER-C, Vaishnavi Referring Provider [phone] Alejandra DOG CONTROL OFFICER-C, Sue Attending Provider Josias LOPEZ, Dr. Hernandez Primary Care Provider Josias LOPEZ, Dr. Hernandez Attending Provider Alejandra DOG CONTROL OFFICER-C, Sue Referring Provider Paulino DOG CONTROL OFFICER-C, Vaishnavi Other Provider Kvng LOPEZ, Bruce Unavailable Isaac Min MD Unavailable Castro Ferrara DO Primary Care Provider Niels Flores MD Unavailable RIKA CASTRO Attending Unavailable CARLY MANE Admitting Unavailable CONSULT, IP TO NEPHROLOGY [facility] Consulti ng Unavailable CASTRO FERRARA Primary Care Unavailable MARQUIS GOMES Referring Unavailable SELF, SELF Referring Unavailable CASTRO FERRARA Primary Care Unavailable KELBY CHANCE Attending Unavailable SELF, SELF Referring Unavailable VAISHNAVI FRY Attending Unavailable CASTRO FERRARA Primary Care Unavailable SELF, SELF Referring Unavailable JOSIAS, CASTRO A Primary Care Unavailable KELBY CHANCE Attending Unavailable KAVEH HADLEY Referring Unavailable JOSIAS CASTRO Clemons Primary Care Unavailable CONSULT, NEPHROLOGY Consulting Unavailable NAYELI CASILLAS Admitting Unavailable HODA MOORE Attending Unavailable Josias LOPEZ, Dr. Hernandez Primary Care Provider [facility] , Dr. Hernandez Attending Provider Dr. Kush Pool MD Emergency Provider [facility] , Dr. Hernandez Primary Care Provider [facility], Dr. Hernandez Attending Provider Yrn NIX, Dr. Currie Attending Provider [facility] , Dr. Hernandez Primary Care Provider [facility] , Dr. Hernandez Attending Provider [phone] Dr. Jd Weeks DO Attending Provider Johnny NIX, Dr. Napier Attending Provider Demetrio NIX, Dr. Casillas Primary Care Provider Lyric Atkinson MD, Dr. Casillas Referring Provider Rachael Grullon MD, Dr. Aguilar Other Provider Josias LOPEZ, Dr. Hernandez Primary Care Provider [facility] , Dr. Hernandez Attending Provider [facility] , Dr. Hernandez Referring Provider Johnny NIX, Dr. Napier Attending Provider Demetrio NIX, Dr. Casillas Primary Care Provider Lyric Atkinson MD, Dr. Casillas Referring Provider Rachael Grullon MD, Dr. Aguilar Other Provider Jane Jhaveri Attending Provider Jane Jhaveri Referring Provider Dr. Pako Mendoza DO Emergency Provider [phone] Pako Mendoza DO Attending Provider [phone] Amy Viramontes DO Emergency Provider [phone] Kaylin Sosa Primary Care Provider Unavailmauro Grullon MD, Jeff Roberts Unavailable [phone] AMY VIRAMONTES Referring Unavailable KAYLIN SOSA Primary Care Unavailable PATEL MURPHY Admitting Unavailable BRUCE BACH Attending Unavailable LIGIA FUENTES Consulting Unavailable Dr. Castro Ferrara DO Primary Care Provider Dr. Castro Ferrara DO Attending Provider Alejandra DOG CONTROL OFFICER-C, Sue Attending Provider Josias LOPEZ, Dr. Hernandez Referring Provider Verito DO, Dr. Reyes Attending Provider Constantino Frank MD Attending Provider Unavailkaci Parmar DOG CONTROL OFFICER-C, Silvina Attending Provider Josias, Castro Primary Care Unavailable Esa Ansari Referring Unavailable Esa Ansari Attending Unavailable Alejandra DOG CONTROL OFFICER, Sue Attending Unavailable Alejandra DOG CONTROL OFFICER, Sue Referring Unavailable Vaishnavi Bob Consulting Unavailable Josias, Castro Primary Care Unavailable Josias, Castro Referring Unavailable Alejandra DOG CONTROL OFFICER, Sue Attending Unavailable Josias, Castro Primary Care Unavailable Josias, Castro Primary Care Unavailable Alejandra DOG CONTROL OFFICER, Sue Referring Unavailable Alejandra DOG CONTROL OFFICER, Sue Consulting Unavailable Castro Ferrara Attending Unavailable Vaishnavi Bob Referring Unavailable BobVaishnavi Attending Unavailable Josias, Castro Primary Care Unavailable Constantino Gant Attending Unavailabl e Josias, Castro Primary Care Unavailable Josias, Castro Primary Care Unavailable Kaveh Hadley Attending Unavailable Constantino Gant Attending Unavailabl e Josias, Castro Primary Care Unavailable Josias, Castro Primary Care Unavailable Pako Mendoza Attending Unavailable Josias, Castro Primary Care Unavailable Marquis Gomes Attending Unavailable Timmy Miranda Referring Unavailable Josias, Castro Primary Care Unavailable Timmy Miranda Attending Unavailable Josias, Castro Primary Care Unavailable Josias, Castro Referring Unavailable Josias, Castro Attending Unavailable Paulino, Vaishnavi Referring Unavailable Bob, Vaishnavi Attending Unavailable Josias, Castro Primary Care Unavailable Josias, Castro Referring Unavailable JosiasCastro Attending Unavailable Josias, Castro Primary Care Unavailable Vinny Atkinson Referring Unavailable Karthikeyan Turner Attending Unavailable Vinny Atkinson Primary Care Unavailable Jeff Grullon Consulting Unavailable Josias, Castro Primary Care Unavailable Bruce Calderon Referring Unavailable Bruce Calderon Attending Unavailable Josias, Castro Primary Care Unavailable JosiasCastro Attending Unavailable Josias, Castro Primary Care Unavailable JosiasCastro Attending Unavailable Josias, Castro Primary Care Unavailable JosiasCastro Attending Unavailable Josias, Castro Primary Care Unavailable JosiasCastro Attending Unavailable Josias, Castro Primary Care Unavailable Castro Ferrara Attending Unavailable Timmy Miranda Attending Unavailable Josias, Castro Primary Care Unavailable Josias, Castro Referring Unavailable Karthikeyan Turner Attending Unavailable Josias, Castro Primary Care Unavailable Josias, Castro Referring Unavailable Josias, Castro Primary Care Unavailable Silvina Parmar NP Attending Unavailable Josias, Castro Primary Care Unavailable Josias, Castro Referring Unavailable Esa Mckeon NP Attending Unavailable Josias, Castro Primary Care Unavailable JosiasCastro Referring Unavailable Isis Arce Attending Unavailable Josias, Castro Primary Care Unavailable JosiasCastro parra Attending Unavailable Josias, Castro Primary Care Unavailable JosiasCastro Attending Unavailable Josias, Castro Primary Care Unavailable JosiasCastro parra Attending Unavailable Josias, Castro Primary Care Unavailable JosiasCastro parra Attending Unavailable Josias, Castro Primary Care Unavailable JosiasCastro parra Attending Unavailable Josias, Castro Primary Care Unavailable JosiasCastro Attending Unavailable Josias, Castro Primary Care Unavailable Alonso Abdullahi Attending Unavailable Diego Reaves Referring Unavailable JosiasCastro Attending Unavailable Josias, Castro Primary [...] Primary Care Unavailable Niels Flores Attending Unavailable Vaishnavi Bob Attending Unavailable Josias, Castro Primary Care Unavailable JosiasCastro Referring Unavailable Josias, Castro Primary Care Unavailable JosiasCastro parra Attending Unavailable Josias, Castro Primary Care Unavailable JosiasCastro Attending Unavailable Josias, Castro Primary Care Unavailable JosiasCastro parra Attending Unavailable JosiasCastro Attending Unavailable Josias, Castro Primary Care Unavailable Esa Ansari Attending Unavailable Esa Ansari Referring Unavailable Josias, Castro Primary Care Unavailable Jane Jhaveri Referring Unavail able Josias, Castro Primary Care Unavailable Jane Jhaveri Attending Unavail able Josias, Castro Primary Care Unavailable Diego Reaves Attending Unavailable Oleghe OLS, Efewongbe Attending Unavailabl e Josias, Castro Primary Care Unavailable Olemekae OLS, Efewongbe Attending Unavailabl e Josias, Castro Primary Care Unavailable Oleghe OLS, Efewongbe Attending Unavailabl e Oleghe OLS, Efewongbe Referring Unavailabl e Josias, Castro Primary Care Unavailable Olemekae OLS, Efewongbe Attending Unavailabl e JosiasCastro parra Primary Care Unavailable Josias, Castor Primary Care Unavailable Kush Pool Attending Unavailable JosiasCastro Primary Care Unavailable Amy Viramontes Attending Unavailable Castro Ferrara Attending Unavailable JosiasCastro parra Primary Care Unavailable Carole OLS, Efewongbe Attending Unavailabl e Josias, Castro Primary Care Unavailable JosiasCastro parra Attending Unavailable Josias, Castro Primary Care Unavailable JosiasCastro parra Primary Care Unavailable JosiasCastro parra Attending Unavailable JosiasCastro parra Primary Care Unavailable JosiasCastro parra Attending Unavailable Castro Ferrara Attending Unavailable JosiasCastro parra Primary Care Unavailable JosiasCastro parra Attending Unavailable Josias, Castro Primary Care Unavailable JosiasCastro Primary Care Unavailable Castro Ferrara [...] Josias, Castro Primary Care Unavailable JosiasCastro parra Primary Care Unavailable Castro Ferrara Attending Unavailable Castro Ferrara Attending Unavailable Josias, Castro Primary Care Unavailable [...] Attending Unavailable Josias, Castro Primary Care Unavailable Alejandra DOG CONTROL OFFICER, Sue Referring Unavailable Jd Weeks Attending Unavailable JosiasCastro parra Primary Care Unavailable JosiasCastro parra Attending Unavailable Josias, Castro Primary Care Unavailable Josias, Castro Attending Unavailable Josias, Castro Primary Care Unavailable JosiasCastro parra Attending Unavailable Josias, Castro Primary Care Unavailable JosiasCastro parra Attending Unavailable Josias, Castro Primary Care Unavailable Castro Ferrara Attending Unavailable Contsantino Gant Attending Unavailabl e JosiasCastro parra Primary Care Unavailable Constantino Gant Attending Unavailabl e JosiasCastro parra Primary Care Unavailable Constantino Gant Attending Unavailmauro e Castro Ferrara Primary Care Unavailable JosiasCastro parra Primary Care Unavailable Constantino Gant Attending Unavailabl e Allergies Allergy Classification Reported Allergen(s) Allergy Type Date of Onset Reaction(s) Facility (2 sources) NKDA drug allergy 04-24-2013 [facility] Work Phone: (2 sources) NKA drug allergy 04-24-2013 [facility] Work Phone: Medications Current Medications Medication Drug Class(es) Dates Sig (Normalized) Sig (Original) ALPRAZolam 1 mg oral tablet (20 sources) Benzodiazepine Start: 12-18-2024 End: 12-19-2024 take 1 mg by mouth once daily at bedtime 1 mg, Oral, DAILY AT BEDTIME, First dose on Sun12/18/24 at 2100, Until Discontinued Start: 02-01-2022 take 0.5 mg by mouth at bedtime Alprazolam (Xanax) 1 mg tablet Active 0.5 MG PO AT BEDTIME February 01, 2022 7:48am Start: 01-09-2022 End: 05-27-2025 Start: 01-09-2022 End: 05-27-2025 End: 04-02-2024 take 1 tablet by mouth at bedtime as needed for anxiety ALPRAZolam 0.5 MG tablet Take 1 tablet by mouth At bedtime as needed for Anxiety. 04/02/2024 Discontinued (Medication Reconciliation (suppress cancel msg)) amino acids-protein hydrolys (LIQUACEL) 16-100 gram-kcal/30 mL liqd (6 sources) amino acids-prot ein hydrolys (LIQUACEL) 16-100 gram-kcal/30 mL liqd Take 16-100 g by mouth once daily. Active amino acids-prot ein hydrolys (LIQUACEL) 16-100 gram-kcal/30 mL liqd Take 16- 100 g by mouth once daily. Suspended amoxicillin 500 mg oral caps ule (20 sources) Penicillin-class Antibacterial Start: 12-17-2024 Start: 03-27-2023 End: 12-12-2023 Start: 04-08-2022 End: 04-24-2022 Start: 04-08-2022 End: 04-24-2022 take 500 mg by mouth three times daily Amoxicillin Discontinued 500 MG PO THREE TIMES A DAY 9 April 07, 2022 11:00pm April 24, 2022 1:04pm b complex, c, folic acid 1 mg renal vitamins (NEPHROCAPS) 1 mg capsule (5 sources) Start: 07-16-2025 take 1 capsule by mouth once daily b complex, c, folic acid 1 mg renal vitamins (NEPHROCAPS) 1 mg capsule Take 1 capsule by mouth once daily. 07/16/2025 Active B Vypksdf-S-Lqjoe Acid (NEPHRO-BALTAZAR PO) (11 sources) take 1 tablet by mouth at bedtime B Iyijgyi-A-Prwjp Acid (NEPHRO-BALTAZAR PO) Take 1 tablet by mouth at bedtime. Active B Zzxjmzd-O-Ksjs c Acid (NEPHRO-BALTAZAR PO) Take by mouth. Active B Ekagufb-X-Jpmd c Acid (NEPHRO-BALTAZAR PO) Take by mouth. 0 Active B Complex-Vitamin C-Folic Ac id (NEPHRO-BALTAZAR) 0.8 mg tab (6 sources) take 1 tablet by mouth once daily B Complex-Vitamin C-Folic Acid (NEPHRO-BALTAZAR) 0.8 mg tab Take 0.8 mg by mouth once daily. Active take 1 tablet by mouth once darcie y B Complex-Vitamin C-Folic Acid (NEPHRO-BALTAZAR) 0.8 mg tab Take 0.8 mg by mouth once daily. Suspended B Complex-Vitamin C-Folic Acid (Nephro-Baltazar) 0.8 mg [...] by mouth three times daily as needed. Active take 1 tablet by dyana th every eight hours as needed Cyclobenzaprine 10 MG tablet Take 1 tablet by mouth Every 8 hours as needed. Active docusate sodium 100 mg oral capsule (20 sources) Start: 06-23-2025 Start: 04-24-2016 End: 07-03-2016 Start: 04-24-2016 End: 07-03-2016 take 2 tablets by mouth twice daily COLACE 100 MG CAPS Two tablets by mouth twice daily DOCUSATE SODIUM [id number] Jeff Grullon MD take 2 capsules by m outh twice daily, then take 2 capsules by mouth in the morning, then take 4 capsules by mouth at bedtime docusate sodium (COLACE) 50 mg capsule Take 100 mg by mouth two times a day. 100mg in morning, 200mg at bedtime Active Docusate Sodium (COLACE PO) Take by mouth 2 times daily. Active Docusate Sodium (COLACE PO) Take by mouth. Active fluconazole 100 mg oral tablet (20 sources) Azole Antifungal Start: 07-15-2025 take 1 tablet by mouth once daily in the evening fluconazole (DIFLUCAN) 100 mg tablet Take 1 tablet by mouth daily at 6 pm. 07/15/2025 Active Start: 02-15-2025 End: 03-06-2025 Start: 02-13-2025 End: [...] One tablet by mouth twice daily FUROSEMIDE [id number] Jeff Grullon MD Start: 04-24-2013 End: 02-19-2017 take 1 tablet by mouth once daily as needed LASIX 40 MG TABS One tablet by mouth daily as needed FUROSEMIDE [id number] Patience Mccracken LPN Start: 12-05-2011 End: 01-15-2023 take 1 tablet by mouth twice daily LASIX 20 MG TABS One tablet by mouth twice daily FUROSEMIDE [id number] Oswaldo Ken MD Start: 05-01-2011 take 1 tablet by dyana th once daily LASIX 20 MG TABS One tablet by mouth daily FUROSEMIDE [id number] Philly Molina hydrOXYzine hydrochloride 25 mg oral tablet (5 sources) Antihistamine Start: 04-15-2025 take 1 tablet by mouth three times daily as needed hydrOXYzine HCl 25 MG tablet Take 1 tablet by mouth 3 times daily as needed for Itching. 30 tablet 2 04/15/2025 Active Start: 02-19-2025 End: 03-06-2025 lidocaine 0.04 mg/mg medicated patch (7 sources) Antiarrhythmic, Amide Local Anesthetic Start: 07-16-2025 apply 1 dose transdermal route once daily lidocaine (SALONPAS) 4 % patch Apply 1 patch as directed once daily. 07/16/2025 Active Start: 03-28-2023 End: 03-28-2023 Lidocaine HCl Urethral/Mucos al 2 % jelly prefilled syringe (Urojet) PRSY 10 mL Methoxy PEG-Epoetin Beta (MIRCERA IJ) (1 source) Start: 12-28-2022 Methoxy PEG-Ep oetin Beta (MIRCERA IJ) Inject 200 mcg under the skin. 0 12/28/2022 Active metoclopramide 5 mg oral tablet (16 sources) Dopamine-2 Receptor Antagonist Start: 03-17-2025 take 2.5 mg by mouth once daily at breakfast metoclopramide HCl (REGLAN) 5 mg tablet Take 2.5 mg by mouth daily with breakfast. Active midodrine hydrochloride 10 m g oral tablet [...] dialysis on Sunday, Sunday, , and Sunday) Active oxyCODONE hydrochloride 5 mg oral tablet (20 sources) Opioid Agonist Start: 07-16-2025 Start: 04-02-2024 End: 04-02-2024 take 1 tablet by mouth every four hours as needed oxyCODONE (ROXICODONE) tablet 5 mg Start: 06-05-2016 End: 06-29-2016 take 1 tablet by mouth every three hours as needed OXYCODONE HCL 10 MG TABS one tab by mouth every 3 hours as needed OXYCODONE HCL [id number] Jeff Grullon MD Start: 04-11-2016 End: 06-23-2016 sevelamer carbonate 800 mg powder for oral suspension (20 sources) Phosphate Binder Start: 07-15-2025 take 1.6 g by mouth three times daily at mealtime sevelamer carbonate (RENVELA) 0.8 gram pwpk Take 1.6 g by mouth three times a day with meals. 07/15/2025 Active Start: 12-18-2024 End: 12-19-2024 take 800 mg by mouth three times daily at mealtime 800 mg, Oral, 3 TIMES DAILY WITH MEALS, First dose on Sun12/18/24 at 1700, Until Discontinued, Swallow whole; do [...] 07/11/2022 01/15/2023 Discontinued Start: 06-06-2022 End: 11-27-2022 triamcinolone acetonide 1 mg /ml topical lotion (16 sources) Corticosteroid Start: 12-17-2024 warfarin sodium 2 [...] daily Warfarin Discontinued 1 0 MG PO DAILY@0 July 03, 2016 9:21am November 01, 2017 9:09am Start: 06-23-2016 End: 07-03-2016 take 3 tablets by mouth once daily Warfarin (Jantoven) 5 MG tablet Discontinued 15 MG PO DAILY@1700 June 22, 2016 11:00pm July 03, 2016 [...] mg daily or as directed WARFARIN SODIUM [id number] Jeff Grullon MD Start: 09-05-2013 COUMADIN 1 MG TABS two tablets every evening with a 6mg tablets and as directed WARFARIN SODIUM [id number] Jeff Grullon MD Start: 09-05-2013 End: 06-05-2016 COUMADIN 6 MG TABS This dosa ge includes: 7 mg daily Sun through Sunday, 8 mg on Sat and Sun. WARFARIN SODIUM [id number] Aleisha Alonso RN Start: 09-05-2013 COUMADIN 5 MG TABS 15 mg X 4 days per week and 10 mg X 3 days per week or as directed (dose changes often) WARFARIN SODIUM [id number] Jeff Grullon MD Start: 09-04-2013 COUMADIN 1 MG TABS This dosage includes: 7 mg daily Sun through Sunday, 6.5 mg on Sat and Sun. WARFARIN SODIUM [id number] Aleisha Alonso RN Start: 12-05-2011 End: 06-09-2014 WARFARIN SODIUM 7.5 MG TABS take one and half tablets by mouth every evening WARFARIN SODIUM [id number] Carla Schmid Start: 09-29-2011 COUMADIN 1 MG TABS Take 1 tablet with a 6 mg tablet to = 7 mg a day, except on Sunday take two 1 mg tablets with a 6 to = 8 WARFARIN SODIUM [id number] Aleisha Alonso RN Start: 09-29-2011 take 1 [...] 1 mg to =8 ) WARFARIN SODIUM [id number] Oswaldo Ken MD (20 sources) Start: 06-23-2025 [...] One tablet by mouth twice daily ACETAMINOPHEN [id number] Jane Torres PA-C take 1000 mg by mout h twice daily Acetaminophen (TYLENOL PO) Take 1,000 mg by mouth 2 times daily. Active Acetaminophen (T YLENOL PO) Take by mouth. Active acetaminophen 325 mg / oxyCODONE hydrochloride 5 mg oral tablet (4 sources) Opioid Agonist Start: 06-14-2025 End: 06-23-2025 acyclovir 400 mg oral tablet (8 sources) Herpesvirus Nucleoside Analog DNA Polymerase Inhibitor, Herpes Simplex Virus Nucleoside Analog DNA Polymerase Inhibitor, Herpes Zoster Virus Nucleoside Analog DNA Polymerase Inhibitor Start: 11-16-2011 End: 02-26-2012 take 1 tablet by mouth twice daily ACYCLOVIR 400 MG TABS One tablet by mouth twice daily ACYCLOVIR [id number] Aleisha Alonso RN Start: 05-01-2011 End: 10-06-2011 take 1 tablet by mouth twice daily ACYCLOVIR 400 MG TABS One tablet by mouth twice daily ACYCLOVIR [id number] Oswaldo Ken MD [id number] actuat albuter ol 0.09 mg/actuat metered [...] AERS As needed - 90mcg/inh ALBUTEROL SULFATE [id number] Oswaldo Ken MD take 2 puff(s) by in halation every four hours as needed for wheezing albuterol HFA (PROVENTIL HFA, VENTOLIN HFA) 90 mcg/actuation inhaler Inhale 2 puffs as instructed every 4 hours as needed for wheezing/shortness of breath. Active allopurinol 100 mg oral tabl et (20 sources) Xanthine Oxidase Inhibitor Start: 08-29-2017 End: 10-31-2021 Start: 05-01-2011 End: 06-05-2016 take 1 tablet by mouth once daily ALLOPURINOL 100 MG TABS One tablet by mouth daily ALLOPURINOL [id number] Philly Molina aluminum hydroxide 40 mg/ml / [...] One tablet by mouth daily AMLODIPINE BESYLATE [id number] Jeff Grullon MD ascorbic acid 500 mg chewable tablet (20 sources) Start: 06-06-2016 End: 07-03-2016 Start: 06-05-2016 End: 06-29-2016 take 1 tablet by mouth twice daily ASCORBIC ACID 250 MG TABS One tablet by mouth twice daily ASCORBIC ACID [id number] Jeff Grullon MD ascorbic acid 100 mg [...] 03-07-2021 Start: 05-01-2011 take 1 tablet by [facility] once daily ASPIRIN 81 MG TABS One tablet by mouth daily ASPIRIN [id number] Meron Cohen RN Start: 05-01-2011 End: 02-26-2012 take 1 tablet by mouth once daily ASPIRIN EC 81 MG TBEC One tablet by mouth daily ASPIRIN [id number] Gabi Mcconnell RN atropine sulfate 0.025 mg / diphenoxylate hydrochloride 2.5 mg oral tablet (4 sources) Anticholinergic, Cholinergic Muscarinic Antagonist, Antidiarrheal Start: 11-16-2011 End: 02-26-2012 LOMOTIL 2.5-0.025 MG TABS 1 tablet every 4 hours as needed DIPHENOXYLATE-ATROPINE [id number] Oswaldo Ken MD benzonatate (4 sources) Non-narcotic Antitussive Start: 11-16-2011 TESSALON 200 MG CAPS twice daily as needed BENZOSHANEATE [id number] Aleisha Alonso RN Start: 11-16-2011 End: 02-26-2012 TESSALON 200 MG CAPS twice d aily as needed BENZONATATE [id number] Oswaldo Ken MD bisacodyl 5 mg delayed relea se oral tablet (2 sources) Stimulant Laxative Start: 02-15-2025 End: 02-15-2025 calcitriol 0.28730 mg oral c apsule (20 sources) Vitamin [...] tablet by mouth three times daily CEPHALEXIN [id number] Jane Torres PA-C sugar-free cholestyramine resin 4000 mg powder for oral suspension (14 sources) Bile Acid Sequestrant Start: 01-29-2014 End: 06-05-2016 CHOLESTYRAMINE LIGHT 4 GM PACK 1 and 1/2 pack twice daily to = 6 Grams bid CHOLESTYRAMINE LIGHT [id number] Carla Schmid Start: 01-29-2014 QUESTRAN 4 GM PACK 1-1/2 pkts twice daily to equal 6 Gm twice a day CHOLESTYRAMINE [id number] Jeff Grullon MD Start: 01-16-2013 End: 01-21-2013 QUESTRAN 4 GM PACK 1-1/2 pkt s twice daily to equal 6 Gm twice a day CHOLESTYRAMINE [id number] Jeff Grullon MD cinacalcet 30 mg oral [...] mouth every 4 hours as needed GUAIFENESIN-CODEINE [id number] Oswlado Ken MD Start: 11-16-2011 ROBAFEN AC 100 -10 MG/5ML SYRP 1-2 tbsp by mouth every 4 hours as needed GUAIFENESIN-CODEINE [id number] Aleisha Alonso RN colestipol hydrochloride 5000 mg oral granules (4 sources) Bile Acid Sequestrant Start: 06-09-2011 End: 01-21-2013 COLESTID 5 GM PACK 1 pkg by mouth 2 X daily COLESTIPOL HCL [id number] Oswaldo Ken MD 0.3 ml darbepoetin yonis 0.2 mg/ml prefilled syringe (2 sources) Erythropoiesis-sti mulating Agent Start: 03-03-2025 End: 03-06-2025 24 hr dilTIAZem hydrochloride 180 mg extended release oral capsule (6 sources) Calcium Channel Lloyd Start: 01-21-2013 End: 04-24-2013 take 1 tablet by mouth twice daily CARDIZEM CD 180 MG [id number] One tablet by mouth twice daily DILTIAZEM HCL COATED BEADS [id number] Jeff Grullon MD Start: 05-01-2011 take 1 tablet by dyana th once daily CARDIZEM CD 300 MG [id number] One tablet by mouth daily DILTIAZEM HCL COATED BEADS [id number] Oswaldo Ken MD diphenhydrAMINE hydrochloride 25 mg [...] 100 mg po q 12H DOXYCYCLINE HYCLATE [id number] Eli Rajan MD Start: 07-03-2016 End: 01-12-2022 Start: 06-29-2016 End: 02-19-2017 take 1 tablet by mouth twice daily DOXYCYCLINE HYCLATE 100 MG TABS One tablet by mouth twice daily DOXYCYCLINE HYCLATE [id number] Patience Mccracken LPN Drug or medicament (substanc [...] mg injection subq twice daily ENOXAPARIN SODIUM [id number] Jeff Grullon MD Start: 02-16-2016 LOVENOX 100 MG /ML SOLN one subcutaneous injection twice daily ENOXAPARIN SODIUM [id number] Jeff Grullon MD Start: 05-01-2011 End: 10-06-2011 LOVENOX 100 MG/ML SOLN Subcu taneously every morning ENOXAPARIN SODIUM [id number] Oswaldo Ken MD esomeprazole 40 mg delayed release oral capsule (4 sources) Proton Pump Inhibitor Start: 05-01-2011 End: 11-23-2011 take 1 tablet by mouth once daily NEXIUM 40 MG CPDR One tablet by mouth daily ESOMEPRAZOLE MAGNESIUM [id number] Oswaldo Ken MD ferrous sulfate 325 mg [...] by topical route as needed SODIUM HYPOCHLORITE [id number] Carla Schmid 24 hr isosorbide mononitrate 30 [...] Take 20 g by mouth once daily. Active levETIRAcetam 250 mg oral ta blet (20 [...] 04-14-2021 End: 12-19-2024 take 1 capsule by [facility] once daily before breakfast levothyroxine 75 mcg cap Take 75 mcg by mouth daily before breakfast. Active lisinopril 10 mg oral tablet (20 sources) [...] tablet by mouth twice daily METOPROLOL TARTRATE [id number] Jeff Grullon MD Start: 05-12-2013 take 1 tablet by dyana th twice daily METOPROLOL TARTRATE 25 MG TABS One tablet by mouth twice daily METOPROLOL TARTRATE [id number] Jane Torres, LORENA Start: 04-24-2013 take 1 tablet by dyana th twice daily METOPROLOL TARTRATE 50 MG TABS One half tablet by mouth twice daily METOPROLOL TARTRATE [id number] Jane Torres, RUPAC MULTI-VITAMIN ORAL (1 source) MULTI-VITAMIN OR AL Take by mouth. Suspended MULTIPLE VITAMIN (2 sources) Start: 06-05-2016 take 1 tablet by mouth once daily DAILY VALUE MULTIVITAMIN TABS One tablet by mouth daily MULTIPLE VITAMIN [id number] Carla Schmid Multivitamin With Folic Acid (20 [...] TABS One tablet by mouth daily NIACIN [id number] Jeff Grullon MD Start: 03-03-2014 End: 06-05-2016 take 1 tablet by mouth once daily NIACIN ER 500 MG CR-TABS One tablet by mouth daily NIACIN [id number] Meron Cohen RN Start: 02-26-2012 take 2 tablets by mo ut once daily NIASPAN 500 MG CR-TABS two tablets by mouth daily NIACIN (ANTIHYPERLIPIDEMIC) [id number] Oswaldo Ken MD Start: 11-16-2011 End: 04-22-2013 take 1 tablet by mouth once daily NIASPAN 1000 MG CR-TABS One tablet by mouth daily NIACIN (ANTIHYPERLIPIDEMIC) [id number] Jeff Grullon MD Start: 05-01-2011 take 1 tablet by dyana twice daily NIASPAN 500 MG CR-TABS One tablet by mouth twice daily NIACIN (ANTIHYPERLIPIDEMIC) [id number] Philly Molina 2 ml ondansetron 2 mg/ml injection (20 sources) Serotonin-3 Receptor Antagonist Start: 04-02-2024 End: 04-02-2024 4 mg, Intravenous, EVERY 4 HOURS NEEDED, Starting on Sun04/02/24 at 1136, Until Sun04/02/24 at 1530, Nausea / Vomiting, Post-op/Post-Proc Start: 10-10-2021 End: 07-18-2022 Start: 11-16-2011 End: 02-26-2012 ZOFRAN 4 MG TABS every 4 emmy rs As needed ONDANSETRON HCL [id number] Oswaldo Ken MD Start: 05-01-2011 End: 10-06-2011 ZOFRAN 4 MG TABS As needed 2 ONDANSETRON HCL [id number] Philly Molina Ondansetron 4mg/2ml (ZOFRAN) injection 4 mg (1 source) Start: 12-18-2024 End: 12-19-2024 take 4 mg intravenously every six hours as needed Ondansetron 4mg/2ml (ZOFRAN) injection 4 mg oxymetazoline hydrochloride 0.5 mg/ml nasal spray (20 sources) Start: 04-06-2022 End: 06-06-2022 Start: 04-06-2022 End: 06-06-2022 Oxymetazoline (Nasal [place] ( Oxymetazoline)) 0.05 % spray,non-aerosol Discontinued 1 SPRAY NASAL THREE TIMES A DAY May 08, 2022 2:39pm June 06, 2022 1:24pm Start: 04-06-2022 End: 06-06-2022 pantoprazole 40 mg delayed r elease oral tablet (20 sources) Proton Pump Inhibitor Start: 02-15-2025 End: 02-18-2025 Start: 08-02-2021 End: 12-19-2024 Start: 09-14-2020 End: 03-01-2021 Start: 09-02-2018 End: 03-06-2025 take 1 tablet by mouth twice daily pantoprazole DR (PROTONIX) 40 mg tablet Take 1 tablet by mouth twice daily. 60 tablet 1 09/02/2018 Active Start: 06-21-2018 End: 09-03-2018 Perflutren Lipid Microsphere [...] during procedure., Echo Procedure polyethylene glycol 3350 24837 mg powder for oral solution (20 sources) Osmotic Laxative Start: 12-18-2024 End: 12-19-2024 17 g, Oral, DAILY NEEDED, Starting on Jerrica 12/18/24 at 1402, Until 12/19/24 at 1904, Constipation 1st Line Start: 04-02-2024 End: 04-02-2024 17 g, Oral, DAILY NEEDED, Starting on 04/02/24 at 1136, Until Sun04/02/24 at 1530, Constipation 1st Line, Post-op/Post-Proc Start: 06-06-2016 End: 07-03-2016 POLYETHYLENE GLYCOL 3350 (4 sources) Start: 06-05-2016 End: 06-29-2016 take 1 dose by mouth once daily MIRALAX PACK one packet by mouth daily POLYETHYLENE GLYCOL 3350 [id number] Jeff Grullon MD Start: 06-05-2016 take 1 dose by mouth once daily MIRALAX PACK one packet by mouth daily POLYETHYLENE GLYCOL 3350 [id number] Carla Schmid polysaccharide iron complex 150 mg [...] tablet by mouth daily POLYSACCHARIDE IRON COMPLEX [id number] Ariana Maynard POTASSIUM CHLORIDE JOANNE CR (14 sources) Start: 02-15-2025 End: 02-15-2025 Start: 06-25-2012 End: 04-24-2013 take 1 tablet by mouth once daily KLOR-CON M20 20 MEQ CR-TABS One tablet by mouth daily POTASSIUM CHLORIDE JOANNE CR [id number] Jeff Grullon MD Start: 06-25-2012 take 1 tablet by dyana th once daily KLOR-CON M20 20 MEQ CR-TABS One tablet by mouth daily POTASSIUM CHLORIDE JOANNE CR [id number] Oswaldo Ken MD Start: 12-13-2011 KLOR-CON M20 2 0 MEQ CR-TABS POTASSIUM CHLORIDE JOANNE CR [id number] Aleisha Alonso RN Start: 10-06-2011 take 1 tablet by dyana th once daily POTASSIUM CHLORIDE 20 MEQ PACK One tablet by mouth daily POTASSIUM CHLORIDE [id number] Oswadlo Ken MD Start: 05-01-2011 take 1 tablet by dyana th once daily POTASSIUM CHLORIDE ER 10 MEQ CR-TABS One tablet by mouth daily POTASSIUM CHLORIDE [id number] Philly Mk Molina promethazine (20 sources) Phenothiazine Start: 12-18-2024 End: 12-19-2024 take 1 tablet by mouth every six hours as needed Promethazine HCl (PHENERGAN) tablet 25 mg Start: 06-06-2016 End: 07-03-2016 Start: 06-05-2016 End: 08-28-2016 take 1-2 tablets by mouth every eight hours as needed PROMETHAZINE HCL 12.5 MG TABS one-two tabs by mouth every 8 hours as needed PROMETHAZINE HCL [id number] Jeff Grullon MD ramipril 2.5 mg oral capsule (8 sources) Angiotensin Converting Enzyme Inhibitor Start: 11-10-2013 End: 06-05-2016 take 1 tablet by mouth twice daily ALTACE 2.5 MG CAPS One tablet by mouth twice daily RAMIPRIL [id number] Carla Schmid Start: 05-01-2011 take 1 tablet by dyana th once daily ALTACE 2.5 MG CAPS One tablet by mouth daily RAMIPRIL [id number] Oswaldo Ken MD rifAMPin 300 mg oral [...] by mouth twice daily as needed SENNOSIDES [id number] Carla Schmid Start: 06-05-2016 End: 06-29-2016 take 1 tablet by mouth twice daily as needed [facility] SENNA 8.6 MG TABS One tablet by mouth twice daily as needed SENNOSIDES [id number] Jeff Grullon MD sennosides, shelter 8.6 mg oral tablet (20 sources) Start: 06-06-2016 End: 07-03-2016 Start: 06-06-2016 End: 07-03-2016 take 1 tablet by mouth once daily as needed Sennosides (Ying-Mona) 1 TABLET tablet Discontinued 1 TABLET PO DAILY NEEDED June 05, 2016 11:00pm July 03, 2016 9:17am Start: 06-06-2016 End: 07-03-2016 sodium bicarbonate 650 mg or al tablet (20 sources) Start: 07-13-2020 End: 10-31-2021 Start: 06-05-2016 End: 10-30-2018 Start: 06-05-2016 take 1 tablet by dyana th three times daily SODIUM BICARBONATE 650 MG TABS One tablet by mouth three times daily SODIUM BICARBONATE [id number] Jeff Grullon MD 1000 ml sodium chloride [...] tablet by mouth twice daily SOTALOL HCL [id number] Oswaldo Ken MD Start: 07-04-2012 End: 04-24-2013 take 1 tablet by mouth twice daily SOTALOL HCL 120 MG TABS One tablet by mouth twice daily SOTALOL HCL [id number] Jeff Grullon MD Start: 05-01-2011 take 1 tablet by dyana twice daily SOTALOL HCL (AF) 120 MG TABS One tablet by mouth twice daily SOTALOL HCL AF [id number] Oswaldo Ken MD sucroferric oxyhydroxide 500 mg [...] End: 10-06-2011 BACTRIM DS 800-160 MG TABS Hdr-Vat-Lteagvb SULFAMETHOXAZOLE-TRIMETHOPRIM [id number] Oswaldo Ken MD tamsulosin hydrochloride 0.4 mg [...] 1,500 mg, Intravenous, Administer over 1 Hours, 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 Vancomycin is preferred agent for device implants, based on national, community and local (OSUM) MRSA rates., Pre-op/Pre-Proc VITAMIN A TABS (20 sources) Vitamin A Start: 06-27-2016 VITAMIN A PALM ITATE TABS 10,000 IU daily VITAMIN A TABS [id number] Gabi Mcconnell RN Start: 06-27-2016 End: 06-29-2016 VITAMIN A PALMITATE TABS 10, 000 IU daily VITAMIN A TABS [id number] Jeff Grullon MD Start: 06-06-2016 End: 07-03-2016 [...] Complications of surgical procedures or medical care (20 sources) Postoperative hemorrhage; Translations: [Other complications of [...] Coronary arteriosclerosis; Translations: [Atherosclerotic heart disease of [place] coronary artery without angina pectoris] Onset: 5 [...] 08-28-2021 Chronic Diseases of white blood cells (20 sources) Leukemoid reaction; Translations: [Leukocytosis] Onset: 1 [...] infection (20 sources) Viral gastroenteritis due to [place]-like agent; Translations: [Acute gastroenteropathy due to [place] agent] Episodic Intestinal obstruction without hernia (4 [...] sources) Long-term current use of anticoagulant; Translations: [rn long term care (current) use of anticoagulants] 12-06-2022 Episodic Other aftercare (20 sources) rn long term care (current) use of anticoagulants; Translations: [Long-term (current) use of anticoagulants] Onset: 5 Episodic Other aftercare (6 sources) Long-term current use of antibiotic; Translations: [rn long term care (current) use of antibiotics] Onset: 5 06-25-2025 Episodic Other aftercare (1 source) Encounter for therapeutic drug level monitoring; Translations: [Encounter for therapeutic drug level monitoring] Onset: 5 Episodic Other circulatory disease (2 sources) 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, unspecified; Translations: [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, unspecified] Onset: 1 05-01-2011 Chronic Other CUSTOM SHOE DESIGNER AND MAKER infection and poliomyelitis (6 sources) Abscess in epidural space of lumbar spine; Translations: [Intraspinal abscess and granuloma] Onset: 5 06-24-2025 Episodic Other disorders of stomach and duodenum (17 sources) Persistent vomiting; Translations: [Cyclical vomiting syndrome unrelated to migraine] 03-18-2025 Episodic Other fractures (6 sources) Compression fracture of lumbar spine; Translations: [Wedge compression fracture of unspecified lumbar vertebra, initial encounter for closed fracture] Onset: 5 06-24-2025 Episodic Other fractures (1 source) Wedge compression fracture of unspecified lumbar vertebra, initial encounter for closed fracture; Translations: [Lumbar compression fracture, closed, initial encounter ([facility])] Onset: 5 Episodic Other hereditary and degenerative nervous system conditions (20 sources) Impaired cognition; Translations: [Mild cognitive impairment, so stated] 10-16-2022 Chronic Other hereditary and degenerative nervous system conditions (20 sources) Mild cognitive impairment, so stated; Translations: [Mild cognitive impairment, so stated] Onset: 5 Chronic Other hereditary and degenerative nervous system conditions (13 sources) Essential tremor; Translations: [Essential tremor] 08-07-2023 Chronic Other hereditary and degenerative nervous system conditions (1 source) Essential tremor; Translations: [Essential and other specified forms of tremor] 08-07-2023 Chronic Other injuries and conditions due to external causes (20 sources) Closed injury of head; Translations: [Unspecified injury of head, initial encounter] 08-28-2021 Episodic Other injuries and conditions due to external causes (1 source) Compression fracture ; Translations: [Fracture of unspecified bone, closed] 07-16-2025 Episodic Other liver diseases (20 sources) Cirrhosis of liver; Translations: [Unspecified cirrhosis of liver] Onset: 1 Chronic Other liver diseases (9 sources) Unspecified cirrhosis of liver; Translations: [Cirrhosis of liver without mention of alcohol] Chronic Other liver diseases (17 sources) 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 gastropathy; Translations: [Portal hypertension] 03-18-2025 Chronic Other liver diseases (3 sources) Other cirrhosis of liver; Translations: [Other cirrhosis of liver] Onset: 4 Chronic Other liver diseases (2 sources) Portal hypertension; Translations: [Portal hypertension] Onset: 5 Chronic Other liver diseases (10 sources) Enzyme level - finding; Translations: [Elevated transaminase measurement] 12-24-2024 Episodic Other liver diseases (1 source) Hepatic encephalopathy; Translations: [Hepatic encephalopathy] 04-16-2025 Episodic Other lower respiratory disease (20 sources) Dyspnea; Translations: [Dyspnea, unspecified] Onset: 1 09-29-2011 Episodic Other lower respiratory disease (20 sources) Hypoxemia; Translations: [Hypoxemia] 08-28-2021 Episodic Other lower respiratory disease (20 sources) Cough; Translations: [Cough] Episodic Other nervous system disorders (20 sources) [...] Translations: [Disorders of urea cycle metabolism] Onset: 5 Chronic Other screening for suspected conditions (not mental disorders or infectious disease) (17 sources) CT of chest abnormal; Translations: [Abnormal [...] 1 05-01-2011 Chronic Peripheral and visceral atherosclerosis (17 sources) Disorder of colon; Translations: [Acute infarction [...] status; Translations: [Altered mental status, unspecified] Onset: Resolved: 5 09-09-2021 Episodic Residual codes; unclassified [...] postprocedural states] 11-24-2022 Episodic Residual codes; unclassified (17 sources) Early satiety; Translations: [Early satiety] 03-18-2025 Episodic Residual codes; unclassified (1 source) Acute pain; Translations: [Pain, unspecified] 07-16-2025 Episodic Respiratory failure; insufficiency; arrest (adult) (20 sources) Acute respiratory failure; Translations: [Acute respiratory failure with hypoxia] Episodic Septicemia (except in labor) (20 sources) Sepsis; Translations: [Sepsis, unspecified organism] Onset: 6 Resolved: 6 Episodic Spondylosis; intervertebral disc disorders; other back problems (6 sources) Lumbar discitis; Translations: [Discitis, unspecified, lumbar region] Onset: 5 06-25-2025 Chronic Spondylosis; intervertebral disc disorders; other back problems (7 sources) Acute low back pain; Translations: [Acute [...] Unclassified (2 sources) Warfarin therapy started; Translations: [rn long term care (current) use of anticoagulants] Onset: 7 02-28-2017 Unclassified (2 sources) Tuberculosis screening ; Translations: [Encounter for screening for respiratory tuberculosis] Onset: 1 10-06-2011 Unclassified (2 sources) Aftercare ; Translations: [Encounter for other specified surgical aftercare] Onset: 6 07-05-2016 Unclassified (2 sources) Drug therapy finding; Translations: [rn long term care (current) use of anticoagulants] Onset: 6 03-01-2016 Unclassified (2 sources) Long-term drug therapy; Translations: [Other prison (current) drug therapy] Onset: 1 05-01-2011 Unclassified [...] Onset: 03-09-2016 Resolved: 03-30-2016 03-30-2016 Episodic Lymphadenitis (6 sources) Lymphadenopathy; Translations: [Generalized enlarged lymph nodes] Onset: 11-15-2010 06-24-2025 Episodic Malaise and fatigue (20 sources) Fatigue; Translations: [Asthenia] Onset: 12-08-2013 12-08-2013 Episodic Mood disorders (13 sources) Mood disorders Onset: 07-07-2016 Resolved: 07-07-2016 07-07-2016 Mycoses (20 sources) Fungemia; Translations: [Unspecified mycosis] Onset: 09-24-2021 [...] 05-19-2016 Resolved: 06-26-2016 06-26-2016 Episodic Other aftercare (6 sources) Warfarin therapy started; Translations: [intermediate (current) use of anticoagulants] Onset: 02-28-2017 06-24-2025 Episodic Other circulatory disease (6 sources) Low blood pressure; Translations: [Hypotension, unspecified] Onset: 06-14-2018 06-24-2025 Episodic Other connective tissue disease (1 source) Pain in right thigh; Translations: [Pain in right thigh] Onset: 05-05-2025 Episodic Other diseases of kidney and ureters [...] injury of right hip, initial encounter] Onset: 04-23-2025 Episodic Other lower respiratory disease (20 sources) Dyspnea, unspecified; Translations: [Other respiratory abnormalities] Onset: 05-07-2025 Episodic Hilary-; endo-; and myocarditis; cardiomyopathy (19 [...] Test Name Value Interpretation Reference Range Facility [facility] 07-31-2025 [facility] Telephone (INFDAK) -------- CHRISTIAN AMADOR ([id number]) 1950 M Date Time Provider Department 07/31/25 LIGIA FUENTES During your visit today, we recorded the following information about you: Ethel Zuniga RN 07/31/2025 2:40 PM Signed External copat lab results entered. Ethel Zuniga RN Allergies As of Date: 07/31/2025 (No Known Allergies) Date Reviewed: 07/08/2025 Reviewed by: Mehreen Guerrero RN - Fully Assessed Reason for Visit: Results [95] Order(s):CBCDIF (EXTERNAL) [9779729] Order #: [id number] CREATININE BLOOD (AK,AV,EU,FV,HL,NNEKA,MM,SP ) [2953687] Order #: [id number] VANCOMYCIN PRE DOSE (AK) [7449663] Order #: [id number] Prescriptions as of 07/31/2025 - b complex, c, folic acid 1 mg renal vitamins (NEPHROCAPS) 1 mg capsule Take 1 capsule by mouth once daily. - lidocaine (SALONPAS) 4 % patch Apply 1 patch as directed once daily. - sevelamer carbonate (RENVELA) 0.8 gram pwpk Take 1.6 g by mouth three times a day with meals. - fluconazole (DIFLUCAN) 100 mg tablet Take 1 tablet by mouth daily at 6 pm. - albuterol HFA (PROVENTIL HFA, VENTOLIN HFA) 90 mcg/actuation inhaler Inhale 2 puffs as instructed every 4 hours as needed for wheezing/shortness of breath. - metoclopramide HCl (REGLAN) 5 mg tablet Take 2.5 mg by mouth daily with breakfast. - midodrine (PROAMATINE) 10 mg tablet Take 10 mg by mouth four times daily. Up to 4 tablets on dialysis on Sunday, Sunday, , and Sunday) - sucroferric oxyhydroxide (VELPHORO) 500 mg chew Take 500 mg by mouth three times a day. - levothyroxine 75 mcg cap Take 75 mcg by mouth daily before breakfast. - B Complex-Vitamin C-Folic Acid (NEPHRO-BALTAZAR) 0.8 mg tab Take 0.8 mg by mouth once daily. - lactulose 10 gram/15 mL solution Take 20 g by mouth once daily. - triamcinolone (KENALOG) 0.1 % lotion Apply 0.1 % to affected area three times a day. - amino acids-protein hydrolys (LIQUACEL) 16-100 gram-kcal/30 mL liqd Take 16-100 g by mouth once daily. - docusate sodium (COLACE) 50 mg capsule Take 100 mg by mouth two times a day. 100mg in morning, 200mg at bedtime - cyclobenzaprine (FLEXERIL) 10 mg tablet Take 10 mg by mouth three times daily as needed. - ferrous sulfate (IRON) 325 mg (65 mg iron) tablet Take 325 mg by mouth daily with breakfast. - pantoprazole DR (PROTONIX) 40 mg tablet Take 1 tablet by mouth twice daily. - warfarin (COUMADIN) 2 mg tablet Take 2 mg Sunday and Sunday, 1 mg all other days of the week Problem List As Of Date 07/31/2025 Noted Resolved Lymphadenopathy [R59.1] 11/15/2010 Lumbar compression fracture, closed, initial en*06/24/2025 Acute encephalopathy [G93.40] 08/26/2021 Anemia due to chronic kidney disease, on chroni*01/12/2011 ESRD (end stage renal disease) (HCC) [N18.6] 02/17/2022 Atherosclerosis of coronary artery [I25.10] 06/24/2025 Atrial fibrillation (HCC) [I48.91] 02/26/2013 Cardiomyopathy, nonischemic (HCC) [I42.8] 08/07/2013 Chronic systolic heart failure (HCC) [I50.22] 2013 Essential (primary) hypertension [I10] 06/14/2018 Hypotension, unspecified [I95.9] 06/14/2018 Debility [R53.81] 10/10/2021 H/O mechanical aortic valve replacement [Z95.2] 05/01/2011 Fungemia [B49] 09/24/2021 Cirrhosis of liver without ascites (HCC) [K74.6*08/25/2021 Hyperlipidemia [E78.5] 05/01/2011 Leukocytosis [D72.829] 06/24/2025 Warfarin therapy started [Z79.01] 02/28/2017 MIA (obstructive sleep apnea) [G47.33] 10/21/2021 Polyneuropathy [G62.9] 06/24/2025 Protein-calorie malnutrition (HCC) [E46] 02/17/2022 S/P radiofrequency ablation operation for arrhy*06/24/2025 Stage 3 chronic kidney disease (HCC) [N18.30] 06/27/2016 SSS (sick sinus syndrome) (HCC) [I49.5] 06/24/2025 Epidural abscess, L2-L5 (HCC) [G06.1] 06/24/2025 Pleural effusion [J90] 06/25/2025 Lumbar discitis [M46.46] 06/25/2025 Staphylococcus epidermidis bacteremia [R78.81, *06/25/2025 rn long term care (current) use of antibiotics [Z79.2] 06/25/2025 Pacemaker [Z95.0] 06/25/2025 Encounter Status:Closed by ETHEL ZUNIGA on 07/31/25 Normal [facility] CBCDIF (EXTERNAL)on 07-28-20 BASO ABS [facility] Basophils/100 WBC (Bld) 0.8 % 0 - 1.5 % [facility] EOS ABS [facility] Eosinophils/100 WBC (Bld) 8.8 % Abnormal 1 - 3 % [facility] Erythrocyte distribution width (RBC) [Ratio] 17.6 % Abnormal 11.5 - 14.5 % [facility] Hematocrit (Bld) [Volume fraction] 34.4 % Abnormal 39 - 55 % [facility] Hemoglobin (Bld) [Mass/Vol] 11.1 g/dL Abnormal 14 - 16.5 g/dL [facility] LYMPH ABS [facility] Lymphocytes/100 WBC (Bld) 14.5 % Abnormal 20 - 30 % [facility] MCH (RBC) [Entitic mass] 31.7 pg 25.4 - 34.6 pg [facility] MCHC (RBC) [Mass/Vol] 32.3 g/dL 30 - 36 g/dL [facility] MCV (RBC) [Entitic vol] 98 fL 79 - 98 fL [facility] MONO ABS [facility] Monocytes/100 WBC (Bld) 4.8 % 2 - 8 % [facility] MPV [facility] NEUT ABS [facility] Neutrophils/100 WBC (Bld) 69.8 % 40 - 74 % [facility] Platelets (Bld) [#/Vol] 178 10*3/uL 140 - 440 K/uL [facility] RBC (Bld) [#/Vol] 3.5 10*6/uL Abnormal [facility] WBC (Bld) [#/Vol] 9.49 10*3/uL 3.9 - 11 K/uL [facility] CREATININE BLOOD (AK,AV,EU,F V,HL,NNEKA,MM,SP)on 07-28-2025 Creatinine [Mass/Vol] 6.05 mg/dL Abnormal 0.70 - 1.20 mg/dL [facility] No Panel Informationon 07-28 Interpretation and review of laboratory results Abnormal [facility] VANCOMYCIN PRE DOSE (AK)on 0 07-28-2025 Vancomycin Pre 9 Abnormal [facility] CNPNon 07-27-2025 CNPN Telephone (INFDAK) -------- MARJORIECHRISTIAN ([id number]) 1950 M Date Time Provider Department 07/27/25 LIGIA FUENTES INFDAK During your visit today, we recorded the following information about you: Ethel Zuniga RN 07/27/2025 2:19 PM Signed External copat lab results entered. Ethel Zuniga RN Allergies As of Date: 07/27/2025 (No Known Allergies) Date Reviewed: 07/08/2025 Reviewed by: Mehreen Guerrero, GIO - Fully Assessed Reason for Visit: Results [95] Order(s):VANCOMYCIN PRE DOSE (AK) [[id number]] Order #: [id number] Prescriptions as of 07/27/2025 - b complex, c, folic acid 1 mg renal vitamins (NEPHROCAPS) 1 mg capsule Take 1 capsule by mouth once daily. - lidocaine (SALONPAS) 4 % patch Apply 1 patch as directed once daily. - sevelamer carbonate (RENVELA) 0.8 gram pwpk Take 1.6 g by mouth three times a day with meals. - fluconazole (DIFLUCAN) 100 mg tablet Take 1 tablet by mouth daily at 6 pm. - albuterol HFA (PROVENTIL HFA, VENTOLIN HFA) 90 mcg/actuation inhaler Inhale 2 puffs as instructed every 4 hours as needed for wheezing/shortness of breath. - metoclopramide HCl (REGLAN) 5 mg tablet Take 2.5 mg by mouth daily with breakfast. - midodrine (PROAMATINE) 10 mg tablet Take 10 mg by mouth four times daily. Up to 4 tablets on dialysis on Sunday, Sunday, , and Sunday) - sucroferric oxyhydroxide (VELPHORO) 500 mg chew Take 500 mg by mouth three times a day. - levothyroxine 75 mcg cap Take 75 mcg by mouth daily before breakfast. - B Complex-Vitamin C-Folic Acid (NEPHRO-BALTAZAR) 0.8 mg tab Take 0.8 mg by mouth once daily. - lactulose 10 gram/15 mL solution Take 20 g by mouth once daily. - triamcinolone (KENALOG) 0.1 % lotion Apply 0.1 % to affected area three times a day. - amino acids-protein hydrolys (LIQUACEL) 16-100 gram-kcal/30 mL liqd Take 16-100 g by mouth once daily. - docusate sodium (COLACE) 50 mg capsule Take 100 mg by mouth two times a day. 100mg in morning, 200mg at bedtime - cyclobenzaprine (FLEXERIL) 10 mg tablet Take 10 mg by mouth three times daily as needed. - ferrous sulfate (IRON) 325 mg (65 mg iron) tablet Take 325 mg by mouth daily with breakfast. - pantoprazole DR (PROTONIX) 40 mg tablet Take 1 tablet by mouth twice daily. - warfarin (COUMADIN) 2 mg tablet Take 2 mg Sunday and Sunday, 1 mg all other days of the week Problem List As Of Date 07/27/2025 Noted Resolved Lymphadenopathy [R59.1] 11/15/2010 Lumbar compression fracture, closed, initial en*06/24/2025 Acute encephalopathy [G93.40] 08/26/2021 Anemia due to chronic kidney disease, on chroni*01/12/2011 ESRD (end stage renal disease) (HCC) [N18.6] 02/17/2022 Atherosclerosis of coronary artery [I25.10] 06/24/2025 Atrial fibrillation (HCC) [I48.91] 02/26/2013 Cardiomyopathy, nonischemic (HCC) [I42.8] 08/07/2013 Chronic systolic heart failure (HCC) [I50.22] 2013 Essential (primary) hypertension [I10] 06/14/2018 Hypotension, unspecified [I95.9] 06/14/2018 Debility [R53.81] 10/10/2021 H/O mechanical aortic valve replacement [Z95.2] 05/01/2011 Fungemia [B49] 09/24/2021 Cirrhosis of liver without ascites (HCC) [K74.6*08/25/2021 Hyperlipidemia [E78.5] 05/01/2011 Leukocytosis [D72.829] 06/24/2025 Warfarin therapy started [Z79.01] 02/28/2017 MIA (obstructive sleep apnea) [G47.33] 10/21/2021 Polyneuropathy [G62.9] 06/24/2025 Protein-calorie malnutrition (HCC) [E46] 02/17/2022 S/P radiofrequency ablation operation for arrhy*06/24/2025 Stage 3 chronic kidney disease (HCC) [N18.30] 06/27/2016 SSS (sick sinus syndrome) (HCC) [I49.5] 06/24/2025 Epidural abscess, L2-L5 (HCC) [G06.1] 06/24/2025 Pleural effusion [J90] 06/25/2025 Lumbar discitis [M46.46] 06/25/2025 Staphylococcus epidermidis bacteremia [R78.81, *06/25/2025 intermediate (current) use of antibiotics [Z79.2] 06/25/2025 Pacemaker [Z95.0] 06/25/2025 Encounter Status:Closed by ETHEL ZUNIGA on 07/27/25 [facility] Prothrombin timeOrdered By: Constantino Frank on 07-23-2025 PT Coag (PPP) [Time] 17.7 s High 11.7-14.9 [facility] Dina 07-22-2025 LINDA Telephone (INFDAK) -------- CHRISTIAN AMADOR ([id number]) 1950 M Date Time Provider Department 07/22/25 LIGIA FUENTES During your visit today, we recorded the following information about you: Ethel Zuniga RN 07/22/2025 2:23 PM Signed External copat lab results entered. Ethel Zuniga RN Allergies As of Date: 07/22/2025 (No Known Allergies) Date Reviewed: 07/08/2025 Reviewed by: Mehreen Guerrero RN - Fully Assessed Reason for Visit: Results [95] Order(s):CBCDIF (EXTERNAL) [[id number]] Order #: [id number] VANCOMYCIN PRE DOSE (AK) [[id number]] Order #: [id number] Prescriptions as of 07/22/2025 - b complex, c, folic acid 1 mg renal vitamins (NEPHROCAPS) 1 mg capsule Take 1 capsule by mouth once daily. - lidocaine (SALONPAS) 4 % patch Apply 1 patch as directed once daily. - sevelamer carbonate (RENVELA) 0.8 gram pwpk Take 1.6 g by mouth three times a day with meals. - fluconazole (DIFLUCAN) 100 mg tablet Take 1 tablet by mouth daily at 6 pm. - albuterol HFA (PROVENTIL HFA, VENTOLIN HFA) 90 mcg/actuation inhaler Inhale 2 puffs as instructed every 4 hours as needed for wheezing/shortness of breath. - metoclopramide HCl (REGLAN) 5 mg tablet Take 2.5 mg by mouth daily with breakfast. - midodrine (PROAMATINE) 10 mg tablet Take 10 mg by mouth four times daily. Up to 4 tablets on dialysis on Sunday, Sunday, , and Sunday) - sucroferric oxyhydroxide (VELPHORO) 500 mg chew Take 500 mg by mouth three times a day. - levothyroxine 75 mcg cap Take 75 mcg by mouth daily before breakfast. - B Complex-Vitamin C-Folic Acid (NEPHRO-BALTAZAR) 0.8 mg tab Take 0.8 mg by mouth once daily. - lactulose 10 gram/15 mL solution Take 20 g by mouth once daily. - triamcinolone (KENALOG) 0.1 % lotion Apply 0.1 % to affected area three times a day. - amino acids-protein hydrolys (LIQUACEL) 16-100 gram-kcal/30 mL liqd Take 16-100 g by mouth once daily. - docusate sodium (COLACE) 50 mg capsule Take 100 mg by mouth two times a day. 100mg in morning, 200mg at bedtime - cyclobenzaprine (FLEXERIL) 10 mg tablet Take 10 mg by mouth three times daily as needed. - ferrous sulfate (IRON) 325 mg (65 mg iron) tablet Take 325 mg by mouth daily with breakfast. - pantoprazole DR (PROTONIX) 40 mg tablet Take 1 tablet by mouth twice daily. - warfarin (COUMADIN) 2 mg tablet Take 2 mg Sunday and Sunday, 1 mg all other days of the week Problem List As Of Date 07/22/2025 Noted Resolved Lymphadenopathy [R59.1] 11/15/2010 Lumbar compression fracture, closed, initial en*06/24/2025 Acute encephalopathy [G93.40] 08/26/2021 Anemia due to chronic kidney disease, on chroni*01/12/2011 ESRD (end stage renal disease) (HCC) [N18.6] 02/17/2022 Atherosclerosis of coronary artery [I25.10] 06/24/2025 Atrial fibrillation (HCC) [I48.91] 02/26/2013 Cardiomyopathy, nonischemic (HCC) [I42.8] 08/07/2013 Chronic systolic heart failure (HCC) [I50.22] 2013 Essential (primary) hypertension [I10] 06/14/2018 Hypotension, unspecified [I95.9] 06/14/2018 Debility [R53.81] 10/10/2021 H/O mechanical aortic valve replacement [Z95.2] 05/01/2011 Fungemia [B49] 09/24/2021 Cirrhosis of liver without ascites (HCC) [K74.6*08/25/2021 Hyperlipidemia [E78.5] 05/01/2011 Leukocytosis [D72.829] 06/24/2025 Warfarin therapy started [Z79.01] 02/28/2017 MIA (obstructive sleep apnea) [G47.33] 10/21/2021 Polyneuropathy [G62.9] 06/24/2025 Protein-calorie malnutrition (HCC) [E46] 02/17/2022 S/P radiofrequency ablation operation for arrhy*06/24/2025 Stage 3 chronic kidney disease (HCC) [N18.30] 06/27/2016 SSS (sick sinus syndrome) (HCC) [I49.5] 06/24/2025 Epidural abscess, L2-L5 (HCC) [G06.1] 06/24/2025 Pleural effusion [J90] 06/25/2025 Lumbar discitis [M46.46] 06/25/2025 Staphylococcus epidermidis bacteremia [R78.81, *06/25/2025 rn long term care (current) use of antibiotics [Z79.2] 06/25/2025 Pacemaker [Z95.0] 06/25/2025 Encounter Status:Closed by ETHEL ZUNIGA on 07/22/25 Normal [facility] Absolute lymphocyte countOrd ered By: Constantino Frank on 07-21-2025 Lymphocytes Auto (Unsp spec) [#/Vol] 1.74 10*3/uL 0.83-4.51 [facility] Anion gap in Serum or Plasma Ordered By: Constantino Frank on 07-21-2025 Anion gap [Moles/Vol] 15 mmol/L 5-15 [facility] Automated lymphocyte count a s percentage of total leukocytesOrdered By: Constantino Frank on 07-21-2025 Lymphocytes/100 WBC Auto (Unsp spec) 16.4 % Low 19-41 [facility] BUN/creatinine ratioOrdered By: Constantino Frank on 07-21-2025 Urea nitrogen/Creatinine [Mass ratio] 7.5 mg/mg Low 10-20 [facility] Basophil percentageOrdered B y: Constantino Frank on 07-21-2025 Basophils/100 WBC (Bld) 0.7 % 0-1 [facility] Carbon dioxide, total [Moles /volume] in Central venous bloodOrdered By: Constantino Frank on 07-21-2025 CO2 [Moles/Vol] 25.2 mmol/L 21.0-32.0 [facility] Chloride assayOrdered By: Isabela Frank on 07-21-2025 Chloride [Moles/Vol] 99 mmol/L 98-108 [facility] Eosinophil percentageOrdered By: Constantino Frank on 07-21-2025 Eosinophils/100 WBC (Bld) 8.9 % High 0-5 [facility] Erythrocyte distribution wid th ratioOrdered By: Constantino Frank on 07-21-2025 Erythrocyte distribution width (RBC) [Ratio] 17.7 % High 11.6-14.6 [facility] Erythrocyte distribution wid th standard deviationOrdered By: Constantino Frank on 07-21-2025 Erythrocyte distribution width (RBC) [Ratio] 61.1 fl High 35.1-43.9 [facility] Glomerular filtration rate ( GFR) estimation/1.73 sq m using serum, plasma, or whole bOrdered By: Constantino Frank on 07-21-2025 GFR/1.73 sq M.predicted among non-blacks MDRD (S/P/Bld) [Vol rate/Area] 8 mL/min/{1.73_m2} Low >60 [facility] Hematocrit Auto (Bld) [Volum e fraction]Ordered By: Constantino Frank on 07-21-2025 Hematocrit (Bld) [Volume fraction] 32.2 % Low 40-54 [facility] Hemoglobin measurementOrdere d By: Constantino Frank on 07-21-2025 Hemoglobin (Bld) [Mass/Vol] 10.2 g/dL Low 13.0-16.5 [facility] Immature granulocytes/100 WB C Auto (Bld)Ordered By: Constantino Frank on 07-21-2025 Immature granulocytes/100 WBC (Bld) 0.400 % 0.0-0.9 [facility] MCV (mean corpuscular volume ) determinationOrdered By: Constantino Frank 07-21-2025 MCV (RBC) [Entitic vol] 95.5 fL High 80-94 [facility] Mean corpuscular hemoglobin (MCH) determinationOrdered By: Constantino Frank on 07-21-2025 MCH (RBC) [Entitic mass] 30.3 pg 27.0-32.0 [facility] Monocyte percentageOrdered B y: Constantino Clementerenate on 07-21-2025 Monocytes/100 WBC (Bld) 8.9 % 0-10 [facility] Neutrophil percentageOrdered By: Isabelaabellois Clementerenate on 07-21-2025 Neutrophils/100 WBC (Bld) 64.7 % 47-70 [facility] Platelet countOrdered By: Isabela ritu Clementemekaguilherme on 07-21-2025 Platelets (Bld) [#/Vol] 212 10*3/uL 150-450 [facility] Potassium measurement (mass/ volume)Ordered By: Constantino Frank on 07-21-2025 Potassium (Unsp spec) [Mass/Vol] 4.1 mmol/L 3.3-5.1 [facility] Prothrombin timeOrdered By: Constantino Frank on 07-21-2025 PT Coag (PPP) [Time] 19.4 s High 11.7-14.9 [facility] RBC Auto (Bld) [#/Vol]Ordere d By: Christinabenniesally Frank on 07-21-2025 RBC (Bld) [#/Vol] 3.37 10*6/uL Low 4.6-6.2 [facility] Serum creatinine measurement (mass/volume)Ordered By: Constantino Frank on 07-21-2025 Creatinine [Mass/Vol] 6.47 mg/dL High 0.70-1.20 [facility] Serum glucose measurement (m ass/volume)Ordered By: Constantino Frank on 07-21-2025 Glucose [Mass/Vol] 100 mg/dL High 70-99 [facility] Serum or plasma calcium khalif urement (mass/volume)Ordered By: Constantino Frank on 07-21-2025 Calcium [Mass/Vol] 8.9 mg/dL 7.6-11.0 [facility] Serum or plasma urea nitroge n measurement (mass/volume)Ordered By: Constantino Frank on 07-21-2025 Urea nitrogen [Mass/Vol] 48 mg/dL High 4-19 [facility] Sodium levelOrdered By: Christina leyvaclotilde Zac on 07-21-2025 Sodium [Moles/Vol] 139 mmol/L 133-145 [facility] VANCOMYCIN PRE DOSE (AK)on 0 07-21-2025 Vancomycin Pre 15.8 [facility] White blood cell (WBC) count Ordered By: Constantino Frank on 07-21-2025 WBC (Bld) [#/Vol] 10.6 10*3/uL 4.4-11.0 [facility] Prothrombin timeOrdered By: Constantino Frank on 07-20-2025 PT Coag (PPP) [Time] 21.5 s High 11.7-14.9 [facility] Prothrombin timeOrdered By: Constantino Frank on 07-17-2025 PT Coag (PPP) [Time] 27.3 s High 11.7-14.9 [facility] TSH DL <= 0.005 mIU/L QnOrde red By: Constantino Frank on 07-17-2025 TSH Qn 9.880 uIU/mL High 0.300-4.200 [facility] Venous blood ammonia measure mentOrdered By: Constantino Frank on 07-17-2025 Ammonia (P) [Moles/Vol] 28.2 umol/L 16-60 [facility] Absolute lymphocyte countOrd ered By: Constantino Frank on 07-16-2025 Lymphocytes Auto (Unsp spec) [#/Vol] 1.92 10*3/uL 0.83-4.51 [facility] Anion gap in Serum or Plasma Ordered By: Constantino Frank on 07-16-2025 Anion gap [Moles/Vol] 10 mmol/L 5-15 [facility] Automated lymphocyte count a s percentage of total leukocytesOrdered By: Constantino Frank on 07-16-2025 Lymphocytes/100 WBC Auto (Unsp spec) 21.9 % 19-41 [facility] BUN/creatinine ratioOrdered By: Constantino Frank on 07-16-2025 Urea nitrogen/Creatinine [Mass ratio] 4.9 mg/mg Low 10-20 [facility] Basophil percentageOrdered B y: Constantino Frank on 08-28-2025 Basophils/100 WBC (Bld) 1.0 % 0-1 [facility] Bilirubin, totalOrdered By: Constantino Frank on 07-16-2025 Bilirubin [Mass/Vol] 0.67 mg/dL 0.00-1.30 [facility] CBCDIF (EXTERNAL)on 07-16-20 25 BASO ABS [facility] Basophils/100 WBC (Bld) 0.5 % 0 - 1.5 % [facility] EOS ABS [facility] Eosinophils/100 WBC (Bld) 3.3 % Abnormal 1 - 3 % [facility] Erythrocyte distribution width (RBC) [Ratio] 17.3 % Abnormal 11.5 - 14.5 % [facility] Hematocrit (Bld) [Volume fraction] 34.4 % Abnormal 39 - 55 % [facility] Hemoglobin (Bld) [Mass/Vol] 10.4 g/dL Abnormal 14 - 16.5 g/dL [facility] Interpretation and review of laboratory results Abnormal [facility] LYMPH ABS [facility] Lymphocytes/100 WBC (Bld) 13.6 % Abnormal 20 - 30 % [facility] MCH (RBC) [Entitic mass] 29.8 pg 25.4 - 34.6 pg [facility] MCHC (RBC) [Mass/Vol] 30.3 g/dL 30 - 36 g/dL [facility] MCV (RBC) [Entitic vol] 98 fL 79 - 98 fL [facility] MONO ABS [facility] Monocytes/100 WBC (Bld) 8.2 % Abnormal 2 - 8 % [facility] MPV [facility] NEUT ABS [facility] Neutrophils/100 WBC (Bld) 72.5 % 40 - 74 % [facility] Platelets (Bld) [#/Vol] 169 10*3/uL 140 - 440 K/uL [facility] RBC (Bld) [#/Vol] 3.51 10*6/uL Abnormal [facility] WBC (Bld) [#/Vol] 9.8 10*3/uL 3.9 - 11 K/uL [facility] Carbon dioxide, total [Moles /volume] in Central venous bloodOrdered By: Constantino Frank on 07-16-2025 CO2 [Moles/Vol] 27.2 mmol/L 21.0-32.0 [facility] Chloride assayOrdered By: Isabela Medinae on 07-16-2025 Chloride [Moles/Vol] 97 mmol/L Low 98-108 [facility] Eosinophil percentageOrdered By: Isabelalois Clementemekaguilherme on 07-16-2025 Eosinophils/100 WBC (Bld) 6.3 % High 0-5 [facility] Erythrocyte distribution wid th ratioOrdered By: Constantino Clementemekaguilherme on 07-16-2025 Erythrocyte distribution width (RBC) [Ratio] 17.6 % High 11.6-14.6 [facility] Erythrocyte distribution wid th standard deviationOrdered By: Jacksonsally Cornejomekaguilherme on 07-16-2025 Erythrocyte distribution width (RBC) [Ratio] 61.8 fl High 35.1-43.9 [facility] Glomerular filtration rate ( GFR) estimation/1.73 sq m using serum, plasma, or whole bOrdered By: Constantino Cornejomekaguilherme on 07-16-2025 GFR/1.73 sq M.predicted among non-blacks MDRD (S/P/Bld) [Vol rate/Area] 14 mL/min/{1.73_m2} Low >60 [facility] Hematocrit Auto (Bld) [Volum e fraction]Ordered By: Constantino Cornejomekaguilherme on 07-16-2025 Hematocrit (Bld) [Volume fraction] 32.7 % Low 40-54 [facility] Hemoglobin measurementOrdere d By: Constantino Cornejomekaguilherme 07-16-2025 Hemoglobin (Bld) [Mass/Vol] 10.2 g/dL Low 13.0-16.5 [facility] Immature granulocytes/100 WB C Auto (Bld)Ordered By: Constantino Cornejomekaguilherme on 07-16-2025 Immature granulocytes/100 WBC (Bld) 0.500 % 0.0-0.9 [facility] MCV (mean corpuscular volume ) determinationOrdered By: Constantino Cornejomekaguilherme 07-16-2025 MCV (RBC) [Entitic vol] 96.7 fL High 80-94 [facility] Mean corpuscular hemoglobin (MCH) determinationOrdered By: Constantino Frank 07-16-2025 MCH (RBC) [Entitic mass] 30.2 pg 27.0-32.0 [facility] Monocyte percentageOrdered B y: Constantino Frank on 07-16-2025 Monocytes/100 WBC (Bld) 12.3 % High 0-10 [facility] Neutrophil percentageOrdered By: Constantino Frank on 07-16-2025 Neutrophils/100 WBC (Bld) 58.0 % 47-70 [facility] No Panel Informationon 07-16 [facility] No Panel InformationOrdered By: Constantino Frank on 07-16-2025 51 U/L High <38 [facility] Platelet countOrdered By: Isabela Frank on 07-16-2025 Platelets (Bld) [#/Vol] 179 10*3/uL 150-450 [facility] Potassium measurement (mass/ volume)Ordered By: Constantino Frank on 07-16-2025 Potassium (Unsp spec) [Mass/Vol] 4.7 mmol/L 3.3-5.1 [facility] RBC Auto (Bld) [#/Vol]Ordere d By: Constantino Frank on 07-16-2025 RBC (Bld) [#/Vol] 3.38 10*6/uL Low 4.6-6.2 [facility] Serum creatinine measurement (mass/volume)Ordered By: Constantino Frank on 07-16-2025 Creatinine [Mass/Vol] 4.25 mg/dL High 0.70-1.20 [facility] Serum globulin measurementOr dered By: Constantino Frank on 07-16-2025 Globulin (S) [Mass/Vol] 4.0 g/dL 2.2-4.2 [facility] Serum glucose measurement (m ass/volume)Ordered By: Constantino Frank on 07-16-2025 Glucose [Mass/Vol] 92 mg/dL 70-99 [facility] Serum or plasma alanine lorenzana otransferase (ALT) measurementOrdered By: Constantino Frank on 07-16-2025 ALT [Catalytic activity/Vol] 24 U/L <47 [facility] Serum or plasma albumin khalif urement (mass/volume)Ordered By: Constantino Frank on 07-16-2025 Albumin [Mass/Vol] 3.1 g/dL Low 3.4-4.8 [facility] Serum or plasma albumin/glob ulin mass ratioOrdered By: Constantino Frank on 07-16-2025 Albumin/Globulin [Mass ratio] 0.8 {ratio} Low 0.9-2.4 [facility] Serum or plasma alkaline guille sphatase measurementOrdered By: Constantino Frank on 07-16-2025 ALP [Catalytic activity/Vol] 659 U/L High 40-129 [facility] Serum or plasma calcium khalif urement (mass/volume)Ordered By: Constantino Frank on 07-16-2025 Calcium [Mass/Vol] 9.2 mg/dL 7.6-11.0 [facility] Serum or plasma urea nitroge n measurement (mass/volume)Ordered By: Constantino Frank on 07-16-2025 Urea nitrogen [Mass/Vol] 21 mg/dL High 4-19 [facility] Sodium levelOrdered By: Christina Frank on 07-16-2025 Sodium [Moles/Vol] 134 mmol/L 133-145 [facility] Total proteinOrdered By: Angelito Frank on 07-16-2025 Protein [Mass/Vol] 7.1 g/dL 5.9-8.4 [facility] VANCOMYCIN PRE DOSE (AK)on 0 07-16-2025 Vancomycin Pre 13.1 [facility] White blood cell (WBC) count Ordered By: Constantino Frank on 07-16-2025 WBC (Bld) [#/Vol] 8.8 10*3/uL 4.4-11.0 [facility] CASE MANAGEMon 07-15-2025 CASE MANAGEM Normal [facility] CNDSon 07-15-2025 CNDS Normal [facility] CONSULT PROGon 07-15-2025 CONSULT PROG Normal [facility] PT panel Coag (PPP)on 2024 INR Coag (PPP) [Relative time] 3.4 {INR} High 0.9-1.3 [facility] Comment on above: Order Comment: Speci men Type: BLOOD SPECIMENOrdering Facility: [facility] Address: [address] [place] [address] Result Comment: Zina min K Antagonist (VKA) Therapeutic Range: INR 2 to 3 (Target INR of 2.5)Note: For patients treated with VKA drugs, such as warfarin, the [place] [employer] 2012 Guideline recommends [...] al. Chest 2012, 141:7S-47SNishimmel RA, et al. [facility] 2017, 70: 252-289 Performed By: #### 3 4528-0 ####[facility] LABORATORYCLIA [id number] [place] [address] [place] PT Coag (PPP) [Time] 33.7 s High 9.7-13.0 [facility] Comment on above: Order Comment: Zach schwartz Type: BLOOD SPECIMENOrdering Facility: [facility] Address: [address] [place] [address] Performed By: #### 3 4528-0 ####[facility] LABORATORYCLIA [id number] [address] [place] THERAPY NTon 07-15-2025 THERAPY NT Normal [facility] CBC panel Auto (Bld)on 07-14 Erythrocyte distribution width (RBC) [Ratio] 17.3 % High 11.5-15.0 [facility] Comment on above: Order Comment: Zach schwartz Type: BLOOD SPECIMENOrdering Facility: [facility] Address: [address] [place] [address] Performed By: #### 5 8410-2 ####[facility] LABORATORYCLIA [id number] [address] Hematocrit (Bld) [Volume fraction] 29.7 % Low 39.0-51.0 [facility] Comment on above: Order Comment: Speci men Type: BLOOD SPECIMENOrdering Facility: [facility] Address: [address] [place] [address] Performed By: #### 5 8410-2 ####[facility] LABORATORYCLIA [id number] [address] Hemoglobin (Bld) [Mass/Vol] 8.9 g/dL Low 13.0-17.0 [facility] Comment on above: Order Comment: Speci men Type: BLOOD SPECIMENOrdering Facility: [facility] Address: [address] [place] [address] Performed By: #### 5 8410-2 ####[facility] LABORATORYCLIA [id number] [address] MCH (RBC) [Entitic mass] 30.6 pg Normal 26.0-34.0 [facility] Comment on above: Order Comment: Speci men Type: BLOOD SPECIMENOrdering Facility: [facility] Address: [address] [place] [address] Performed By: #### 5 8410-2 ####[facility] LABORATORYCLIA [id number] [address] [place] MCHC (RBC) [Mass/Vol] 30.0 g/dL Low 30.5-36.0 [facility] Comment on above: Order Comment: Speci men Type: BLOOD SPECIMENOrdering Facility: [facility] Address: [address] [place] [address] Performed By: #### 5 8410-2 ####[facility] LABORATORYCLIA [id number] [address] MCV (RBC) [Entitic vol] 102.1 fL High 80.0-100.[address] [facility] Comment on above: Order Comment: Speci men Type: BLOOD SPECIMENOrdering Facility: [facility] Address: [address] [place] [address] Performed By: #### 5 8410-2 ####[facility] LABORATORYCLIA [id number] [address] [place] Nucleated RBC (Bld) [#/Vol] 10*3/uL Normal <0.01 [facility] Comment on above: Order Comment: Speci men Type: BLOOD SPECIMENOrdering Facility: [facility] Address: [address] [place] [address] Performed By: #### 5 8410-2 ####[facility]ORATORYCLIA [id number] [address] [place] Platelet mean volume (Bld) [Entitic vol] 8.9 fL Low 9.0-12.7 [facility] Comment on above: Order Comment: Speci men Type: BLOOD SPECIMENOrdering Facility: [facility] Address: [address] [place] [address] Performed By: #### 5 8410-2 ####[facility]ORATORYCLIA [id number] [address] [place] Platelets (Bld) [#/Vol] 171 10*3/uL Normal 150-400 [facility] Comment on above: Order Comment: Speci men Type: BLOOD SPECIMENOrdering Facility: [facility] Address: [address] [place] [address] Performed By: #### 5 8410-2 ####[facility]ORATORYCLIA [id number] [address] [place] RBC (Bld) [#/Vol] 2.91 10*6/uL Low 4.20-6.00 [facility] Comment on above: Order Comment: Speci men Type: BLOOD SPECIMENOrdering Facility: [facility] Address: [address] [place] [address] Performed By: #### 5 8410-2 ####[facility] LABORATORYCLIA [id number] [place] [address] [place] WBC (Bld) [#/Vol] 8.51 10*3/uL Normal 3.70-11.00 [facility] Comment on above: Order Comment: Zach schwartz Type: BLOOD SPECIMENOrdering Facility: [facility] Address: [address] [place] [address] Performed By: #### 5 8410-2 ####[facility]ORATORYCLIA [id number] [address] CONSULT PROGon 07-14-2025 CONSULT PROG Normal [facility] PT panel Coag (PPP)on 2024 INR Coag (PPP) [Relative time] 2.7 {INR} High 0.9-1.3 [facility] Comment on above: Order Comment: Zach schwartz Type: BLOOD SPECIMENOrdering Facility: [facility] Address: [address] [place] [address] Result Comment: Zina min K Antagonist (VKA) Therapeutic Range: INR 2 to 3 (Target INR of 2.5)Note: For patients treated with VKA drugs, such as warfarin, the [place] [employer] 2012 Guideline recommends [...] al. Chest 2012, 141:7S-47SNishimmel RA, et al. [facility] 2017, 70: 252-289 Performed By: #### 1 4979-9, 78810-2 ####[facility]ORATORYCLIA [id number] [address] [place] PT Coag (PPP) [Time] 27.0 s High 9.7-13.0 [facility] Comment on above: Order Comment: Speci men Type: BLOOD SPECIMENOrdering Facility: [facility] Address: [address] [place] [address] Performed By: #### 1 4979-9, 01135-4 ####[facility] LABORATORYCLIA [id number] [address] [place] aPTT PPPon 07-14-2025 aPTT Coag (PPP) [Time] 70.6 s High 23.0-32.4 [facility] Comment on above: Order Comment: Speci men Type: BLOOD SPECIMENOrdering Facility: [facility] Address: [address] [place] [address] Performed By: #### 1 4979-9, 03686-7 ####[facility] LABORATORYCLIA [id number] [address] OF [facility] CASE MANAGEMon 07-13-2025 CASE MANAGEM Normal [facility] CBC panel Auto (Bld)on 07-13 Erythrocyte distribution width (RBC) [Ratio] 17.3 % High 11.5-15.0 [facility] Comment on above: Order Comment: Speci men Type: BLOOD SPECIMENOrdering Facility: [facility] Address: [address] [place] [address] Performed By: #### 5 8410-2 ####[facility]ITALCLIA [id number] [address] STATES OF [facility] Hematocrit (Bld) [Volume fraction] 32.4 % Low 39.0-51.0 [facility] Comment on above: Order Comment: Speci men Type: BLOOD SPECIMENOrdering Facility: [facility] Address: [address] [place] [address] Performed By: #### 5 8410-2 ####[facility]ORATORYCLIA [id number] [address] [place] Hemoglobin (Bld) [Mass/Vol] 9.9 g/dL Low 13.0-17.0 [facility] Comment on above: Order Comment: Speci men Type: BLOOD SPECIMENOrdering Facility: [facility] Address: [address] [place] [address] Performed By: #### 5 8410-2 ####[facility] LABORATORYCLIA [id number] [address] MCH (RBC) [Entitic mass] 30.5 pg Normal 26.0-34.0 [facility] Comment on above: Order Comment: Speci men Type: BLOOD SPECIMENOrdering Facility: [facility] Address: [address] [place] [address] Performed By: #### 5 8410-2 ####[facility]ORATORYCLIA [id number] [address] OF [facility] MCHC (RBC) [Mass/Vol] 30.6 g/dL Normal 30.5-36.0 [facility] Comment on above: Order Comment: Speci men Type: BLOOD SPECIMENOrdering Facility: [facility] Address: [address] [place] [address] Performed By: #### 5 8410-2 ####[facility] LABORATORYCLIA [id number] [address] MCV (RBC) [Entitic vol] 99.7 fL Normal 80.0-100.0 [facility] Comment on above: Order Comment: Speci men Type: BLOOD SPECIMENOrdering Facility: [facility] Address: [address] [place] [address] Performed By: #### 5 8410-2 ####[facility]ORATORYCLIA [id number] [address] Nucleated RBC (Bld) [#/Vol] 10*3/uL Normal <0.01 [facility] Comment on above: Order Comment: Speci men Type: BLOOD SPECIMENOrdering Facility: [facility] Address: [address] [place] [address] Performed By: #### 5 8410-2 ####[facility] LABORATORYCLIA [id number] [address] Platelet mean volume (Bld) [Entitic vol] 9.7 fL Normal 9.0-12.7 [facility] Comment on above: Order Comment: Speci men Type: BLOOD SPECIMENOrdering Facility: [facility] Address: [address] [place] [address] Performed By: #### 5 8410-2 ####[facility] LABORATORYCLIA [id number] [address] OF [facility] Platelets (Bld) [#/Vol] 243 10*3/uL Normal 150-400 [facility] Comment on above: Order Comment: Speci men Type: BLOOD SPECIMENOrdering Facility: [facility] Address: [address] [place] [address] Performed By: #### 5 8410-2 ####[facility]ORATORYCLIA [id number] [address] [place] RBC (Bld) [#/Vol] 3.25 10*6/uL Low 4.20-6.00 [facility] Comment on above: Order Comment: Speci men Type: BLOOD SPECIMENOrdering Facility: [facility] Address: [address] [place] [address] Performed By: #### 5 8410-2 ####[facility]ORATORYCLIA [id number] [address] OF [facility] WBC (Bld) [#/Vol] 9.29 10*3/uL Normal 3.70-11.00 [facility] Comment on above: Order Comment: Speci men Type: BLOOD SPECIMENOrdering Facility: [facility] Address: [address] [place] [address] Performed By: #### 5 8410-2 ####[facility] LABORATORYCLIA [id number] [address] OF [facility] CONSULT PROGon 07-13-2025 CONSULT PROG Normal [facility] CONSULT PROG Normal [facility] CONSULT PROG Normal [facility] PT panel Coag (PPP)on 2024 INR Coag (PPP) [Relative time] 2.1 {INR} High 0.9-1.3 [facility] Comment on above: Order Comment: Speci men Type: BLOOD SPECIMENOrdering Facility: [facility] Address: [address] [place] [address] Result Comment: Zina min K Antagonist (VKA) Therapeutic Range: INR 2 to 3 (Target INR of 2.5)Note: For patients treated with VKA drugs, such as warfarin, the [place] [employer] 2012 Guideline recommends [...] al. Chest 2012, 141:7S-47SNishdawood RA, et al. [facility] 2017, 70: 252-289 Performed By: #### 3 4528-0, 76110-1 ####[facility]PITALCLIA [id number] [place] [address] [place] PT Coag (PPP) [Time] 22.1 s High 9.7-13.0 [facility] Comment on above: Order Comment: Zach schwartz Type: BLOOD SPECIMENOrdering Facility: [facility] Address: [address] [place] [address] Performed By: #### 3 4528-0, 79514-1 ####[facility] LABORATORYCLIA [id number] [place] [id number] [place] Vancomycin random [Mass/Vol] on 07-13-2025 Vancomycin [Mass/Vol] 15.4 ug/mL Normal 10.0-20.0 [facility] Comment on above: Order Comment: Zach schwartz Type: BLOOD SPECIMENOrdering Facility: [facility] Address: [address] [place] [id number] Result Comment: Refe rence ranges and high/low indicator flags are provided as general guidelines only. The treating physician must determine appropriate target levels/dosing based on the specific clinical situation. Performed By: #### 4 091-5 ####[facility] LABORATORYCLIA [id number] [address] [place] aPTT PPPon 07-13-2025 aPTT Coag (PPP) [Time] 61.8 s High 23.0-32.4 [facility] Comment on above: Order Comment: Speci men Type: BLOOD SPECIMENOrdering Facility: [facility] Address: [address] [place] [address] Performed By: #### 3 4528-0, 60543-1 ####[facility] LABORATORYCLIA [id number] [place] [address] [place] ALLIED HEALTHon 07-12-2025 ALLIED HEALTH Normal [facility] ALLIED HEALTH Normal [facility] Ammonia Plas-sCncon 07-12-20 Ammonia (P) [Moles/Vol] 17 umol/L Normal 16-[address] [facility] Comment on above: Order Comment: Speci men Type: BLOOD SPECIMENOrdering Facility: [facility] Address: [address] [place] [address] Performed By: #### 1 6362-6 ####[facility] LABORATORYCLIA [id number] [place] [address] [place] Basic metabolic 2000 panelon 07-12-2025 Anion gap [Moles/Vol] 10 mmol/L Normal 8-15 [facility] Comment on above: Order Comment: Speci men Type: BLOOD SPECIMENOrdering Facility: [facility] Address: [address] [place] [address] Performed By: #### 3 3762-6, 95365-2 ####[facility]ORATORYCLIA [id number] [place] [address] [place] Calcium [Mass/Vol] 9.3 mg/dL Normal 8.5-10.2 [facility] Comment on above: Order Comment: Speci men Type: BLOOD SPECIMENOrdering Facility: [facility] Address: [address] [place] [address] Performed By: #### 3 3762-6, 33175-5 ####[facility] LABORATORYCLIA [id number] [place] [id number] [place] Chloride [Moles/Vol] 96 mmol/L Low 98-107 [facility] Comment on above: Order Comment: Speci men Type: BLOOD SPECIMENOrdering Facility: [facility] Address: [address] [place] [address] Performed By: #### 3 3762-6, 42007-4 ####[facility]ORATORYCLIA [id number] [place] [address] [place] CO2 [Moles/Vol] 27 mmol/L Normal 22-30 [facility] Comment on above: Order Comment: Speci men Type: BLOOD SPECIMENOrdering Facility: [facility] Address: [address] [place] [address] Performed By: #### 3 3762-6, 86782-5 ####[facility] LABORATORYCLIA [id number] [address] STATES OF [facility] Creatinine [Mass/Vol] 4.95 mg/dL High 0.73-1.22 [facility] Comment on above: Order Comment: Speci men Type: BLOOD SPECIMENOrdering Facility: [facility] Address: [address] [place] [address] Performed By: #### 3 3762-6, 05838-4 ####[facility] LABORATORYCLIA [id number] [address] [place] eGFRcr SerPlBld CKD-EPI 2020 11 mL/min/1.73m??? Low >=60 [facility] Comment on above: Order Comment: Speci men Type: BLOOD SPECIMENOrdering Facility: [facility] Address: [address] [place] [address] Result Comment: Faviola mated Glomerular Filtration Rate [...] actual GFR. Performed By: #### 3 3762-6, 89802-5 ####[facility]ORATORYCLIA [id number] [place] [address] [place] Glucose [Mass/Vol] 97 mg/dL Normal 74-99 [facility] Comment on above: Order Comment: Zach schwartz Type: BLOOD SPECIMENOrdering Facility: [facility] Address: [address] [place] [address] Result Comment: The [place] [employer] (ADA) provides guidance for cutoff [...] Standards of Medical Care in Diabetes 2016, [place] [employer]. Diabetes Care. 2016.39(Suppl 1). Performed By: #### 3 3762-6, 22013-9 ####[facility]ORATORYCLIA [id number] [place] [address] [place] Potassium [Moles/Vol] 4.9 mmol/L Normal 3.7-5.1 [facility] Comment on above: Order Comment: Zach schwartz Type: BLOOD SPECIMENOrdering Facility: [facility] Address: [address] [place] [address] Performed By: #### 3 3762-6, 92100-8 ####[facility]ORATORYCLIA [id number] [place] [address] [place] Sodium [Moles/Vol] 133 mmol/L Low 136-144 [facility] Comment on above: Order Comment: Zach schwartz Type: BLOOD SPECIMENOrdering Facility: [facility] Address: [address] [place] [address] Performed By: #### 3 3762-6, 03349-3 ####[facility] LABORATORYCLIA [id number] [address] STATES [facility] Urea nitrogen [Mass/Vol] 28 mg/dL High 08-12 [facility] Comment on above: Order Comment: Speci men Type: BLOOD SPECIMENOrdering Facility: [facility] Address: [address] [place] [address] Performed By: #### 3 3762-6, 47726-5 ####[facility] LABORATORYCLIA [id number] [address] OF [facility] CBC panel Auto (Bld)on 07-12 Erythrocyte distribution width (RBC) [Ratio] 17.2 % High 11.5-15.0 [facility] Comment on above: Order Comment: Speci men Type: BLOOD SPECIMENOrdering Facility: [facility] Address: [address] [place] [address] Performed By: #### 5 8410-2 ####[facility] LABORATORYCLIA [id number] [address] STATES [facility] Hematocrit (Bld) [Volume fraction] 31.3 % Low 39.0-51.0 [facility] Comment on above: Order Comment: Speci men Type: BLOOD SPECIMENOrdering Facility: [facility] Address: [address] [place] [address] Performed By: #### 5 8410-2 ####[facility] LABORATORYCLIA [id number] [address] Hemoglobin (Bld) [Mass/Vol] 9.6 g/dL Low 13.0-17.0 [facility] Comment on above: Order Comment: Speci men Type: BLOOD SPECIMENOrdering Facility: [facility] Address: [address] [place] [address] Performed By: #### 5 8410-2 ####[facility] LABORATORYCLIA [id number] [address] MCH (RBC) [Entitic mass] 30.3 pg Normal 26.0-34.0 [facility] Comment on above: Order Comment: Speci men Type: BLOOD SPECIMENOrdering Facility: [facility] Address: [address] [place] [address] Performed By: #### 5 8410-2 ####[facility]ORATORYCLIA [id number] [address] STATES OF [facility] MCHC (RBC) [Mass/Vol] 30.7 g/dL Normal 30.5-36.0 [facility] Comment on above: Order Comment: Speci men Type: BLOOD SPECIMENOrdering Facility: [facility] Address: [address] [place] [address] Performed By: #### 5 8410-2 ####[facility] LABORATORYCLIA [id number] [address] [place] MCV (RBC) [Entitic vol] 98.7 fL Normal 80.0-100.0 [facility] Comment on above: Order Comment: Speci men Type: BLOOD SPECIMENOrdering Facility: [facility] Address: [address] [place] [address] Performed By: #### 5 8410-2 ####[facility] LABORATORYCLIA [id number] [address] Nucleated RBC (Bld) [#/Vol] 10*3/uL Normal <0.01 [facility] Comment on above: Order Comment: Speci men Type: BLOOD SPECIMENOrdering Facility: [facility] Address: [address] [place] [address] Performed By: #### 5 8410-2 ####[facility] LABORATORYCLIA [id number] [address] Platelet mean volume (Bld) [Entitic vol] 9.5 fL Normal 9.0-12.7 [facility] Comment on above: Order Comment: Speci men Type: BLOOD SPECIMENOrdering Facility: [facility] Address: [address] [place] [address] Performed By: #### 5 8410-2 ####[facility] LABORATORYCLIA [id number] [address] [place] Platelets (Bld) [#/Vol] 219 10*3/uL Normal 150-400 [facility] Comment on above: Order Comment: Speci men Type: BLOOD SPECIMENOrdering Facility: [facility] Address: [address] [place] [address] Performed By: #### 5 8410-2 ####[facility]ORATORYCLIA [id number] [address] [place] RBC (Bld) [#/Vol] 3.17 10*6/uL Low 4.20-6.00 [facility] Comment on above: Order Comment: Speci men Type: BLOOD SPECIMENOrdering Facility: [facility] Address: [address] [place] [address] Performed By: #### 5 8410-2 ####[facility]ORATORYCLIA [id number] [address] [place] WBC (Bld) [#/Vol] 11.40 10*3/uL High 3.70-11.00 [facility] Comment on above: Order Comment: Speci men Type: BLOOD SPECIMENOrdering Facility: [facility] Address: [address] [place] [address] Performed By: #### 5 8410-2 ####[facility] LABORATORYCLIA [id number] [address] OF [facility] CONSULT PROGon 07-12-2025 CONSULT PROG Normal [facility] CT BRAIN ATTACK WO IVCONon 0 07-12-2025 CT BRAIN ATTACK WO IVCON Invalid Interpretation Code [facility] CT BRAIN WO IVCONon 07-12-[address] BRAIN WO IVCON Normal [facility] CTA HEAD W IVCONon 5 CTA HEAD W IVCON Normal [facility] CTA NECK W IVCONon 5 CTA NECK W IVCON Normal [facility] Gas and Carbon monoxide pane l (BldV)on 07-12-2025 Base excess Calc (BldV) [Moles/Vol] 4 mmol/L High 0-2 [facility] Comment on above: Order Comment: Speci men Type: VENOUS BLOOD SPECIMENOrdering Facility: [facility] Address: [address] [place] [address] Performed By: #### 2 4344-4 ####[facility] LABORATORYCLIA [id number] [address] [place] Body temperature 97.88 [degF] Normal [facility] Comment on above: Order Comment: Speci men Type: VENOUS BLOOD SPECIMENOrdering Facility: [facility] Address: [address] [place] [address] Performed By: #### 2 4344-4 ####[facility] LABORATORYCLIA [id number] [address] [place] Calcium.ionized (BldV) [Mass/Vol] 1.19 mmol/L Normal 1.08-1.30 [facility] [facility] Comment on above: Order Comment: Speci men Type: VENOUS BLOOD SPECIMENOrdering Facility: [facility] Address: [address] [place] [address] Performed By: #### 2 4344-4 ####[facility] LABORATORYCLIA [id number] [address] [place] Calcium.ionized adjusted to pH 7.4 (BldA) [Moles/Vol] 1.18 mmol/L Normal 1.08-1.30 [facility] Comment on above: Order Comment: Speci men Type: VENOUS BLOOD SPECIMENOrdering Facility: [facility] Address: [address] [place] [address] Performed By: #### 2 4344-4 ####[facility] LABORATORYCLIA [id number] [address] [place] Carboxyhemoglobin (BldV) [Mass fraction] 2.9 % High 0.0-2.0 [facility] Comment on above: Order Comment: Speci men Type: VENOUS BLOOD SPECIMENOrdering Facility: [facility] Address: [address] [place] [address] Result Comment: Carb oxyhemoglobin Reference Range for Smokers: 2.0-8.0% Performed By: #### 2 4344-4 ####[facility]ATORYCLIA [id number] [address] [place] Chloride [Moles/Vol] 100 mmol/L Normal 97-105 [facility] Comment on above: Order Comment: Speci men Type: VENOUS BLOOD SPECIMENOrdering Facility: [facility] Address: [address] [place] [address] Performed By: #### 2 4344-4 ####[facility] LABORATORYCLIA [id number] [address] [place] CO2 (BldV) [Partial pressure] 50 mm[Hg] Normal 42-55 [facility] Comment on above: Order Comment: Speci men Type: VENOUS BLOOD SPECIMENOrdering Facility: [facility] Address: [address] [place] [address] Performed By: #### 2 4344-4 ####[facility] LABORATORYCLIA [id number] [address] CO2 adjusted to patient's actual temperature (BldV) [Partial pressure] 49 mmHg Normal 42-55 [facility] Comment on above: Order Comment: Speci men Type: VENOUS BLOOD SPECIMENOrdering Facility: [facility] Address: [address] [place] [address] Performed By: #### 2 4344-4 ####[facility] LABORATORYCLIA [id number] [place] [address] [place] Glucose [Mass/Vol] 96 mg/dL Normal 60-105 [facility] Comment on above: Order Comment: Speci men Type: VENOUS BLOOD SPECIMENOrdering Facility: [facility] Address: [address] [place] [address] Performed By: #### 2 4344-4 ####[facility]ORATORYCLIA [id number] [place] [address] [place] HCO3 (Bld) [Moles/Vol] 30 mmol/L High 24-28 [facility] Comment on above: Order Comment: Speci men Type: VENOUS BLOOD SPECIMENOrdering Facility: [facility] Address: [address] [place] [address] Performed By: #### 2 4344-4 ####[facility] LABORATORYCLIA [id number] [address] Hematocrit (Bld) [Volume fraction] 31.6 % Low 39.0-51.0 [facility] Comment on above: Order Comment: Speci men Type: VENOUS BLOOD SPECIMENOrdering Facility: [facility] Address: [address] [place] [address] Performed By: #### 2 4344-4 ####[facility] LABORATORYCLIA [id number] [address] [place] Hemoglobin (Bld) [Mass/Vol] 10.2 g/dL Low 13.0-17.0 [facility] Comment on above: Order Comment: Speci men Type: VENOUS BLOOD SPECIMENOrdering Facility: [facility] Address: [address] [place] [address] Performed By: #### 2 4344-4 ####[facility] LABORATORYCLIA [id number] [address] Lactate [Moles/Vol] 1.4 mmol/L Normal 0.5-2.2 [facility] Comment on above: Order Comment: Speci men Type: VENOUS BLOOD SPECIMENOrdering Facility: [facility] Address: [address] [place] [address] Performed By: #### 2 4344-4 ####[facility] LABORATORYCLIA [id number] [address] [place] Methemoglobin (Bld) [Mass fraction] 0.7 % Normal 0.0-1.5 [facility] Comment on above: Order Comment: Speci men Type: VENOUS BLOOD SPECIMENOrdering Facility: [facility] Address: [address] [place] [address] Performed By: #### 2 4344-4 ####[facility]ORYCLIA [id number] [address] [place] O2 THERAPY RA=Room Air Normal [facility] Comment on above: Order Comment: Speci men Type: VENOUS BLOOD SPECIMENOrdering Facility: [facility] Address: [address] [place] [address] Performed By: #### 2 4344-4 ####[facility]ORATORYCLIA [id number] [address] [place] Oxygen (BldV) [Partial pressure] 42 mm[Hg] Normal 35-45 [facility] Comment on above: Order Comment: Speci men Type: VENOUS BLOOD SPECIMENOrdering Facility: [facility] Address: [address] [place] [address] Performed By: #### 2 4344-4 ####[facility] LABORATORYCLIA [id number] [address] [place] Oxygen adjusted to patient's actual temperature (BldV) [Partial pressure] 41 mmHg Normal 35-45 [facility] Comment on above: Order Comment: Speci men Type: VENOUS BLOOD SPECIMENOrdering Facility: [facility] Address: [address] [place] [id number] Performed By: #### 2 4344-4 ####[facility]ATORYCLIA [id number] [address] [place] Oxygen saturation in Venous blood 70 % Normal 60-85 [facility] Comment on above: Order Comment: Speci men Type: VENOUS BLOOD SPECIMENOrdering Facility: [facility] Address: [address] [place] [id number] Performed By: #### 2 4344-4 ####[facility]ATORYCLIA [id number] [address] [place] Oxyhemoglobin (BldV) [Mass fraction] 68 % Normal 60-85 [facility] Comment on above: Order Comment: Speci men Type: VENOUS BLOOD SPECIMENOrdering Facility: [facility] Address: [address] [place] [address] Performed By: #### 2 4344-4 ####[facility]ORATORYCLIA [id number] [address] [place] pH (BldV) 7.39 [pH] Normal 7.32-7.42 [facility] Comment on above: Order Comment: Speci men Type: VENOUS BLOOD SPECIMENOrdering Facility: [facility] Address: [address] [place] [address] Performed By: #### 2 4344-4 ####[facility]ORATORYCLIA [id number] [address] [place] pH adjusted to patient's actual temperature (BldV) 7.39 Normal 7.32-7.42 [facility] Comment on above: Order Comment: Speci men Type: VENOUS BLOOD SPECIMENOrdering Facility: [facility] Address: [address] [place] [address] Performed By: #### 2 4344-4 ####[facility] LABORATORYCLIA [id number] [address] STATES OF [facility] Potassium [Moles/Vol] 4.7 mmol/L Normal 3.5-5.0 [facility] Comment on above: Order Comment: Speci men Type: VENOUS BLOOD SPECIMENOrdering Facility: [facility] Address: [address] [place] [address] Performed By: #### 2 4344-4 ####[facility] LABORATORYCLIA [id number] [address] [place] Sodium [Moles/Vol] 132 mmol/L Low 136-144 [facility] Comment on above: Order Comment: Speci men Type: VENOUS BLOOD SPECIMENOrdering Facility: [facility] Address: [address] [place] [address] Performed By: #### 2 4344-4 ####[facility] LABORATORYCLIA [id number] [address] [place] NT-proBNP [facility] 07-12 Natriuretic peptide.B prohormone N-Terminal [Mass/Vol] >77764 High <450 [facility] Comment on above: Order Comment: Speci men Type: BLOOD SPECIMENOrdering Facility: [facility] Address: [address] [place], [place] [address] [address] Performed By: #### 3 3762-6, 24093-0 ####[facility] LABORATORYCLIA [id number] [address] [place] NURSING PROGon 07-12-2025 NURSING PROG Normal [facility] PT panel Coag (PPP)on 2024 INR Coag (PPP) [Relative time] 1.9 {INR} High 0.9-1.3 [facility] Comment on above: Order Comment: Speci men Type: BLOOD SPECIMENOrdering Facility: [facility] Address: [address] [place] [address] Result Comment: Zina min K Antagonist (VKA) Therapeutic Range: INR 2 to 3 (Target INR of 2.5)Note: For patients treated with VKA drugs, such as warfarin, the [place] [employer] 2012 Guideline recommends [...] al. Chest 2012, 141:7S-47SNishimura RA, et al. [facility] 2017, 70: 252-289 Performed By: #### 1 4979-9, 88861-2 ####[facility] LABORATORYCLIA [id number] [address] [place] PT Coag (PPP) [Time] 19.4 s High 9.7-13.0 [facility] Comment on above: Order Comment: Speci men Type: BLOOD SPECIMENOrdering Facility: [facility] Address: [address] [place] [id number] Performed By: #### 1 4979-9, 57628-7 ####[facility] LABORATORYCLIA [id number] [address] [place] aPTT PPPon 07-12-2025 aPTT Coag (PPP) [Time] 79.6 s High 23.0-32.4 [facility] Comment on above: Order Comment: Speci men Type: BLOOD SPECIMENOrdering Facility: [facility] Address: [address] [place] [address] Performed By: #### 1 4979-9, 38926-2 ####[facility]ORATORYCLIA [id number] [address] CBC panel Auto (Bld)on 07-11 Erythrocyte distribution width (RBC) [Ratio] 17.5 % High 11.5-15.0 [facility] Comment on above: Order Comment: Speci men Type: BLOOD SPECIMENOrdering Facility: [facility] Address: [address] [place] [address] Performed By: #### 5 8410-2 ####[facility] LABORATORYCLIA [id number] [address] STATES OF [facility] Hematocrit (Bld) [Volume fraction] 33.7 % Low 39.0-51.0 [facility] Comment on above: Order Comment: Speci men Type: BLOOD SPECIMENOrdering Facility: [facility] Address: [address] [place] [address] Performed By: #### 5 8410-2 ####[facility] LABORATORYCLIA [id number] [address] STATES [facility] Hemoglobin (Bld) [Mass/Vol] 10.4 g/dL Low 13.0-17.0 [facility] Comment on above: Order Comment: Speci men Type: BLOOD SPECIMENOrdering Facility: [facility] Address: [address] [place] [address] Performed By: #### 5 8410-2 ####[facility] LABORATORYCLIA [id number] [address] STATES [facility] MCH (RBC) [Entitic mass] 30.7 pg Normal 26.0-34.0 [facility] Comment on above: Order Comment: Speci men Type: BLOOD SPECIMENOrdering Facility: [facility] Address: [address] [place] [address] Performed By: #### 5 8410-2 ####[facility] LABORATORYCLIA [id number] [address] OF [facility] MCHC (RBC) [Mass/Vol] 30.9 g/dL Normal 30.5-36.0 [facility] Comment on above: Order Comment: Speci men Type: BLOOD SPECIMENOrdering Facility: [facility] Address: [address] [place] [address] Performed By: #### 5 8410-2 ####[facility] LABORATORYCLIA [id number] [address] [place] MCV (RBC) [Entitic vol] 99.4 fL Normal 80.0-100.0 [facility] Comment on above: Order Comment: Speci men Type: BLOOD SPECIMENOrdering Facility: [facility] Address: [address] [place] [address] Performed By: #### 5 8410-2 ####[facility]ORATORYCLIA [id number] [address] Nucleated RBC (Bld) [#/Vol] 10*3/uL Normal <0.01 [facility] Comment on above: Order Comment: Speci men Type: BLOOD SPECIMENOrdering Facility: [facility] Address: [address] [place] [address] Performed By: #### 5 8410-2 ####[facility]ORATORYCLIA [id number] [address] Platelet mean volume (Bld) [Entitic vol] 9.3 fL Normal 9.0-12.7 [facility] Comment on above: Order Comment: Speci men Type: BLOOD SPECIMENOrdering Facility: [facility] Address: [address] [place] [address] Performed By: #### 5 8410-2 ####[facility] LABORATORYCLIA [id number] [address] STATES OF [facility] Platelets (Bld) [#/Vol] 242 10*3/uL Normal 150-400 [facility] Comment on above: Order Comment: Speci men Type: BLOOD SPECIMENOrdering Facility: [facility] Address: [address] [place] [address] Performed By: #### 5 8410-2 ####[facility] LABORATORYCLIA [id number] [place] [address] [place] RBC (Bld) [#/Vol] 3.39 10*6/uL Low 4.20-6.00 [facility] Comment on above: Order Comment: Speci men Type: BLOOD SPECIMENOrdering Facility: [facility] Address: [address] [place] [address] Performed By: #### 5 8410-2 ####[facility] LABORATORYCLIA [id number] [address] OF [facility] WBC (Bld) [#/Vol] 11.06 10*3/uL High 3.70-11.00 [facility] Comment on above: Order Comment: Speci men Type: BLOOD SPECIMENOrdering Facility: [facility] Address: [address] [place] [address] Performed By: #### 5 8410-2 ####[facility] LABORATORYCLIA [id number] [address] CONSULT PROGon 07-11-2025 CONSULT PROG Normal [facility] PT panel Coag (PPP)on 2024 INR Coag (PPP) [Relative time] 1.8 {INR} High 0.9-1.3 [facility] Comment on above: Order Comment: Speci men Type: BLOOD SPECIMENOrdering Facility: [facility] Address: [address] [place] [address] Result Comment: Zina min K Antagonist (VKA) Therapeutic Range: INR 2 to 3 (Target INR of 2.5)Note: For patients treated with VKA drugs, such as warfarin, the [place] [employer] 2012 Guideline recommends [...] of 3).Karon NAPOLES, et al. Chest 2012, 141:7S-47SNishimmel RA, et al. [facility] 2017, 70: 252-289 Performed By: #### 3 4528-0, 69444-1 ####[facility] LABORATORYCLIA [id number] [place] [address] [place] [facility] PT Coag (PPP) [Time] 18.8 s High 9.7-13.0 [facility] Comment on above: Order Comment: Speci men Type: BLOOD SPECIMENOrdering Facility: [facility] Address: [address] [place] [address] Performed By: #### 3 4528-0, 64203-4 ####[facility]ITALCLIA [id number] [address] [place] aPTT PPPon 07-11-2025 aPTT Coag (PPP) [Time] 64.5 s High 23.0-32.4 [facility] Comment on above: Order Comment: Speci men Type: BLOOD SPECIMENOrdering Facility: [facility] Address: [address] [place] [address] Performed By: #### 1 4979-9 ####[facility] LABORATORYCLIA [id number] [address] OF [facility] aPTT Coag (PPP) [Time] 75.6 s High 23.0-32.4 [facility] Comment on above: Order Comment: Speci men Type: BLOOD SPECIMENOrdering Facility: [facility] Address: [address] [place] [address] Performed By: #### 1 4979-9 ####[facility] LABORATORYCLIA [id number] [address] aPTT Coag (PPP) [Time] 87.7 s High 23.0-32.4 [facility] Comment on above: Order Comment: Speci men Type: BLOOD SPECIMENOrdering Facility: [facility] Address: [address] [place] [address] Performed By: #### 3 4528-0, 22028-2 ####[facility] LABORATORYCLIA [id number] [address] CASE MANAGEMon 07-10-2025 CASE MANAGEM Normal [facility] CBC panel Auto (Bld)on 07-10 Erythrocyte distribution width (RBC) [Ratio] 17.2 % High 11.5-15.0 [facility] Comment on above: Order Comment: Speci men Type: BLOOD SPECIMENOrdering Facility: [facility] Address: [address] [place] [address] Performed By: #### 5 8410-2 ####[facility] LABORATORYCLIA [id number] [address] Hematocrit (Bld) [Volume fraction] 34.1 % Low 39.0-51.0 [facility] Comment on above: Order Comment: Speci men Type: BLOOD SPECIMENOrdering Facility: [facility] Address: [address] [place] [address] Performed By: #### 5 8410-2 ####[facility] LABORATORYCLIA [id number] [address] [place] Hemoglobin (Bld) [Mass/Vol] 10.4 g/dL Low 13.0-17.0 [facility] Comment on above: Order Comment: Speci men Type: BLOOD SPECIMENOrdering Facility: [facility] Address: [address] [place] [address] Performed By: #### 5 8410-2 ####[facility] LABORATORYCLIA [id number] [place] [address] MCH (RBC) [Entitic mass] 30.2 pg Normal 26.0-34.0 [facility] Comment on above: Order Comment: Speci men Type: BLOOD SPECIMENOrdering Facility: [facility] Address: [address] [place] [address] Performed By: #### 5 8410-2 ####[facility] LABORATORYCLIA [id number] [address] [place] MCHC (RBC) [Mass/Vol] 30.5 g/dL Normal 30.5-36.0 [facility] Comment on above: Order Comment: Speci men Type: BLOOD SPECIMENOrdering Facility: [facility] Address: [address] [place] [address] Performed By: #### 5 8410-2 ####[facility] LABORATORYCLIA [id number] [address] MCV (RBC) [Entitic vol] 99.1 fL Normal 80.0-100.0 [facility] Comment on above: Order Comment: Speci men Type: BLOOD SPECIMENOrdering Facility: [facility] Address: [address] [place] [address] Performed By: #### 5 8410-2 ####[facility] LABORATORYCLIA [id number] [address] Nucleated RBC (Bld) [#/Vol] 10*3/uL Normal <0.01 [facility] Comment on above: Order Comment: Speci men Type: BLOOD SPECIMENOrdering Facility: [facility] Address: [address] [place] [address] Performed By: #### 5 8410-2 ####[facility] LABORATORYCLIA [id number] [address] Platelet mean volume (Bld) [Entitic vol] 9.0 fL Normal 9.0-12.7 [facility] Comment on above: Order Comment: Speci men Type: BLOOD SPECIMENOrdering Facility: [facility] Address: [address] [place] [address] Performed By: #### 5 8410-2 ####[facility] LABORATORYCLIA [id number] [address] OF [facility] Platelets (Bld) [#/Vol] 245 10*3/uL Normal 150-400 [facility] Comment on above: Order Comment: Speci men Type: BLOOD SPECIMENOrdering Facility: [facility] Address: [address] [place] [address] Performed By: #### 5 8410-2 ####[facility] LABORATORYCLIA [id number] [address] [place] RBC (Bld) [#/Vol] 3.44 10*6/uL Low 4.20-6.00 [facility] Comment on above: Order Comment: Speci men Type: BLOOD SPECIMENOrdering Facility: [facility] Address: [address] [place] [address] Performed By: #### 5 8410-2 ####[facility] LABORATORYCLIA [id number] [address] OF [facility] WBC (Bld) [#/Vol] 10.52 10*3/uL Normal 3.70-11.00 [facility] Comment on above: Order Comment: Speci men Type: BLOOD SPECIMENOrdering Facility: [facility] Address: [address] [place] [address] Performed By: #### 5 8410-2 ####[facility] LABORATORYCLIA [id number] [address] CONSULT PROGon 07-10-2025 CONSULT PROG Normal [facility] CONSULT PROG Normal [facility] CONSULT PROG Normal [facility] PT panel Coag (PPP)on 2024 INR Coag (PPP) [Relative time] 1.4 {INR} High 0.9-1.3 [facility] Comment on above: Order Comment: Speci men Type: BLOOD SPECIMENOrdering Facility: [facility] Address: [address] [place] [address] Result Comment: Zina min K Antagonist (VKA) Therapeutic Range: INR 2 to 3 (Target INR of 2.5)Note: For patients treated with VKA drugs, such as warfarin, the [place] [employer] 2012 Guideline recommends [...] al. Chest 2012, 141:7S-47SNishimura RA, et al. [facility] 2017, 70: 252-289 Performed By: #### 1 4979-9, 56449-7 ####[facility]PITALCLIA [id number] [place] [address] [place] PT Coag (PPP) [Time] 14.6 s High 9.7-13.0 [facility] Comment on above: Order Comment: Zach schwartz Type: BLOOD SPECIMENOrdering Facility: [facility] Address: [address] [place] [address] Performed By: #### 1 4979-9, 05444-5 ####[facility] LABORATORYCLIA [id number] [address] [place] Vancomycin random [Mass/Vol] on 07-10-2025 Vancomycin [Mass/Vol] 22.1 ug/mL High 10.0-20.0 [facility] Comment on above: Order Comment: Zach schwartz Type: BLOOD SPECIMENOrdering Facility: [facility] Address: [address] [place] [address] Result Comment: Refe rence ranges and high/low indicator flags are provided as general guidelines only. The treating physician must determine appropriate target levels/dosing based on the specific clinical situation. Performed By: #### 4 091-5 ####[facility] [employer] LABORATORYCLIA [id number] [address] [place] aPTT PPPon 07-10-2025 aPTT Coag (PPP) [Time] 65.2 s High 23.0-32.4 [facility] Comment on above: Order Comment: Speci men Type: BLOOD SPECIMENOrdering Facility: [facility] Address: [address] [place] [address] Performed By: #### 1 4979-9, 99552-4 ####[facility] LABORATORYCLIA [id number] [address] STATES OF [facility] CBC panel Auto (Bld)on 07-09 Erythrocyte distribution width (RBC) [Ratio] 17.2 % High 11.5-15.0 [facility] Comment on above: Order Comment: Speci men Type: BLOOD SPECIMENOrdering Facility: [facility] Address: [address] [place] [address] Performed By: #### 5 8410-2 ####[facility] LABORATORYCLIA [id number] [address] [place] Hematocrit (Bld) [Volume fraction] 38.7 % Low 39.0-51.0 [facility] Comment on above: Order Comment: Speci men Type: BLOOD SPECIMENOrdering Facility: [facility] Address: [address] [place] [address] Performed By: #### 5 8410-2 ####[facility] LABORATORYCLIA [id number] [address] [place] Hemoglobin (Bld) [Mass/Vol] 11.6 g/dL Low 13.0-17.0 [facility] Comment on above: Order Comment: Speci men Type: BLOOD SPECIMENOrdering Facility: [facility] Address: [address] [place] [address] Performed By: #### 5 8410-2 ####[facility] LABORATORYCLIA [id number] [address] [place] MCH (RBC) [Entitic mass] 30.1 pg Normal 26.0-34.0 [facility] Comment on above: Order Comment: Speci men Type: BLOOD SPECIMENOrdering Facility: [facility] Address: [address] [place] [address] Performed By: #### 5 8410-2 ####[facility] LABORATORYCLIA [id number] [address] [place] [facility] MCHC (RBC) [Mass/Vol] 30.0 g/dL Low 30.5-36.0 [place] [facility] Comment on above: Order Comment: Speci men Type: BLOOD SPECIMENOrdering Facility: [facility] Address: [address] [place] [address] Performed By: #### 5 8410-2 ####[facility] LABORATORYCLIA [id number] [address] MCV (RBC) [Entitic vol] 100.5 fL High 80.0-100.0 [facility] Comment on above: Order Comment: Speci men Type: BLOOD SPECIMENOrdering Facility: [facility] Address: [address] [place] [address] Performed By: #### 5 8410-2 ####[facility] LABORATORYCLIA [id number] [address] Nucleated RBC (Bld) [#/Vol] 10*3/uL Normal <0.01 [facility] Comment on above: Order Comment: Speci men Type: BLOOD SPECIMENOrdering Facility: [facility] Address: [address] [place] [address] Performed By: #### 5 8410-2 ####[facility]ORATORYCLIA [id number] [address] Platelet mean volume (Bld) [Entitic vol] 8.8 fL Low 9.0-12.7 [facility] Comment on above: Order Comment: Speci men Type: BLOOD SPECIMENOrdering Facility: [facility] Address: [address] [place] [address] Performed By: #### 5 8410-2 ####[facility] LABORATORYCLIA [id number] [place] [address] [place] Platelets (Bld) [#/Vol] 259 10*3/uL Normal 150-400 [facility] Comment on above: Order Comment: Speci men Type: BLOOD SPECIMENOrdering Facility: [facility] Address: [address] [place] [address] Performed By: #### 5 8410-2 ####[facility] LABORATORYCLIA [id number] [place] [address] [place] RBC (Bld) [#/Vol] 3.85 10*6/uL Low 4.20-6.00 [facility] Comment on above: Order Comment: Speci men Type: BLOOD SPECIMENOrdering Facility: [facility] Address: [address] [place] [address] Performed By: #### 5 8410-2 ####[facility]ORATORYCLIA [id number] [place] [address] [place] WBC (Bld) [#/Vol] 9.89 10*3/uL Normal 3.70-11.00 [facility] Comment on above: Order Comment: Speci men Type: BLOOD SPECIMENOrdering Facility: [facility] Address: [address] [place] [address] Performed By: #### 5 8410-2 ####[facility]ORATORYCLIA [id number] [address] [place] CONSULT PROGon 07-09-2025 CONSULT PROG Normal [facility] CONSULT PROG Normal [facility] CONSULT PROG Normal [facility] NURSING PROGon 07-09-2025 NURSING PROG Normal [facility] NUTRITIONon 07-09-2025 NUTRITION Normal [facility] PT panel Coag (PPP)on 2024 INR Coag (PPP) [Relative time] 1.2 {INR} Normal 0.9-1.3 [facility] Comment on above: Order Comment: Speci men Type: BLOOD SPECIMENOrdering Facility: [facility] Address: [address] [place] [address] Result Comment: Zina min K Antagonist (VKA) Therapeutic Range: INR 2 to 3 (Target INR of 2.5)Note: For patients treated with VKA drugs, such as warfarin, the [place] [employer] 2012 Guideline recommends [...] al. Chest 2012, 141:7S-47SNishimura RA, et al. [facility] 2017, 70: 252-289 Performed By: #### 3 4528-0, 05298-7 ####[facility]ITALCL[facility] [id number] [address] PT Coag (PPP) [Time] 13.0 s Normal 9.7-13.0 [facility] Comment on above: Order Comment: Spectrent schwartz Type: BLOOD SPECIMENOrdering Facility: [facility] Address: [address] [place] [address] Performed By: #### 3 4528-0, 23267-0 ####[facility]ITALCLIA [id number] [address] aPTT PPPon 07-09-2025 aPTT Coag (PPP) [Time] 58.0 s High 23.0-32.4 [facility] Comment on above: Order Comment: Camdeni jordan Type: BLOOD SPECIMENOrdering Facility: [facility] Address: [address] [place] [address] Performed By: #### 3 4528-0, 20937-3 ####[facility] LABORATORYCLIA [id number] [place] [id number] [facility] CASE MANAGEMon 07-08-2025 CASE MANAGEM Normal [facility] CBC panel Auto (Bld)on 07-08 Erythrocyte distribution width (RBC) [Ratio] 17.1 % High 11.5-15.0 [facility] Comment on above: Order Comment: Speci men Type: BLOOD SPECIMENOrdering Facility: [facility] Address: [address] [place] [address] Performed By: #### 5 8410-2 ####[facility] LABORATORYCLIA [id number] [address] STATES OF [facility] Hematocrit (Bld) [Volume fraction] 33.8 % Low 39.0-51.0 [facility] Comment on above: Order Comment: Speci men Type: BLOOD SPECIMENOrdering Facility: [facility] Address: [address] [place] [address] Performed By: #### 5 8410-2 ####[facility]ORATORYCLIA [id number] [address] STATES OF [facility] Hemoglobin (Bld) [Mass/Vol] 10.0 g/dL Low 13.0-17.0 [facility] Comment on above: Order Comment: Speci men Type: BLOOD SPECIMENOrdering Facility: [facility] Address: [address] [place] [address] Performed By: #### 5 8410-2 ####[facility] LABORATORYCLIA [id number] [address] [place] MCH (RBC) [Entitic mass] 29.6 pg Normal 26.0-34.0 [facility] Comment on above: Order Comment: Speci men Type: BLOOD SPECIMENOrdering Facility: [facility] Address: [address] [place] [address] Performed By: #### 5 8410-2 ####[facility] LABORATORYCLIA [id number] [address] [place] MCHC (RBC) [Mass/Vol] 29.6 g/dL Low 30.5-36.0 [facility] Comment on above: Order Comment: Speci men Type: BLOOD SPECIMENOrdering Facility: [facility] Address: [address] [place] [address] Performed By: #### 5 8410-2 ####[facility]ORATORYCLIA [id number] [address] MCV (RBC) [Entitic vol] 100.0 fL Normal 80.0-100.[address] [facility] Comment on above: Order Comment: Speci men Type: BLOOD SPECIMENOrdering Facility: [facility] Address: [facility] [place] [address] Performed By: #### 5 8410-2 ####[facility] LABORATORYCLIA [id number] [address] [place] Nucleated RBC (Bld) [#/Vol] 10*3/uL Normal <0.01 [facility] Comment on above: Order Comment: Speci men Type: BLOOD SPECIMENOrdering Facility: [facility] Address: [address] [place] [address] Performed By: #### 5 8410-2 ####[facility]ATORYCLIA [id number] [address] Platelet mean volume (Bld) [Entitic vol] 9.6 fL Normal 9.0-12.7 [facility] Comment on above: Order Comment: Speci men Type: BLOOD SPECIMENOrdering Facility: [facility] Address: [address] [place] [address] Performed By: #### 5 8410-2 ####[facility]ORATORYCLIA [id number] [address] [place] Platelets (Bld) [#/Vol] 248 10*3/uL Normal 150-400 [facility] Comment on above: Order Comment: Speci men Type: BLOOD SPECIMENOrdering Facility: [facility] Address: [address] [place] [address] Performed By: #### 5 8410-2 ####[facility]ORATORYCLIA [id number] [address] [place] RBC (Bld) [#/Vol] 3.38 10*6/uL Low 4.20-6.00 [facility] Comment on above: Order Comment: Camdentrent schwartz Type: BLOOD SPECIMENOrdering Facility: [facility] Address: [address] [place] [address] Performed By: #### 5 8410-2 ####[facility]ORATORYCLIA [id number] [address] [place] WBC (Bld) [#/Vol] 8.67 10*3/uL Normal 3.70-11.00 [facility] Comment on above: Order Comment: Speci men Type: BLOOD SPECIMENOrdering Facility: [facility] Address: [address] [place] [address] Performed By: #### 5 8410-2 ####[facility]ATORYCLIA [id number] [address] CONSULT PROGon 07-08-2025 CONSULT PROG Normal [facility] PT panel Coag (PPP)on 2024 INR Coag (PPP) [Relative time] 1.3 {INR} Normal 0.9-1.3 [facility] Comment on above: Order Comment: Zach schwartz Type: BLOOD SPECIMENOrdering Facility: [facility] Address: [address] [place] [address] Result Comment: Zina min K Antagonist (VKA) Therapeutic Range: INR 2 to 3 (Target INR of 2.5)Note: For patients treated with VKA drugs, such as warfarin, the [place] [employer] 2012 Guideline recommends [...] al. Chest 2012, 141:7S-47SNishdawood RA, et al. [facility] 2017, 70: 252-289 Performed By: #### 3 4528-0, 82447-6 ####[facility]ORATORYCLIA [id number] [address] OF [facility] PT Coag (PPP) [Time] 13.5 s High 9.7-13.0 [facility] Comment on above: Order Comment: Speci men Type: BLOOD SPECIMENOrdering Facility: [facility] Address: [address] [place] [address] Performed By: #### 3 4528-0, 27007-1 ####[facility]ATORYCLIA [id number] [address] aPTT PPPon 07-08-2025 aPTT Coag (PPP) [Time] 77.9 s High 23.0-32.4 [facility] Comment on above: Order Comment: Speci men Type: BLOOD SPECIMENOrdering Facility: [facility] Address: [address] [place] [address] Performed By: #### 3 4528-0, 21164-7 ####[facility]ATORYCLIA [id number] [address] CASE MANAGEMon 07-07-2025 CASE MANAGEM Normal [facility] CBC panel Auto (Bld)on 07-07 Erythrocyte distribution width (RBC) [Ratio] 17.2 % High 11.5-15.0 [facility] Comment on above: Order Comment: Speci men Type: BLOOD SPECIMENOrdering Facility: [facility] Address: [address] [place] [address] Performed By: #### 5 8410-2 ####[facility]ATORYCLIA [id number] [address] Hematocrit (Bld) [Volume fraction] 32.7 % Low 39.0-51.0 [facility] Comment on above: Order Comment: Speci men Type: BLOOD SPECIMENOrdering Facility: [facility] Address: [address] [place] [address] Performed By: #### 5 8410-2 ####[facility]ORATORYCLIA [id number] [address] Hemoglobin (Bld) [Mass/Vol] 9.9 g/dL Low 13.0-17.0 [facility] Comment on above: Order Comment: Speci men Type: BLOOD SPECIMENOrdering Facility: [facility] Address: [address] [place] [address] Performed By: #### 5 8410-2 ####[facility]ATORYCLIA [id number] [address] MCH (RBC) [Entitic mass] 29.9 pg Normal 26.0-34.0 [facility] Comment on above: Order Comment: Speci men Type: BLOOD SPECIMENOrdering Facility: [facility] Address: [address] [place] [address] Performed By: #### 5 8410-2 ####[facility]ORATORYCLIA [id number] [address] MCHC (RBC) [Mass/Vol] 30.3 g/dL Low 30.5-36.0 [facility] Comment on above: Order Comment: Speci men Type: BLOOD SPECIMENOrdering Facility: [facility] Address: [address] [place] [address] Performed By: #### 5 8410-2 ####[facility]ORATORYCLIA [id number] [address] MCV (RBC) [Entitic vol] 98.8 fL Normal 80.0-100.0 [facility] Comment on above: Order Comment: Speci men Type: BLOOD SPECIMENOrdering Facility: [facility] Address: [address] [place] [address] Performed By: #### 5 8410-2 ####[facility]ORATORYCLIA [id number] [address] Nucleated RBC (Bld) [#/Vol] 10*3/uL Normal <0.01 [facility] Comment on above: Order Comment: Speci men Type: BLOOD SPECIMENOrdering Facility: [facility] Address: [address] [place] [address] Performed By: #### 5 8410-2 ####[facility] LABORATORYCLIA [id number] [address] [place] Platelet mean volume (Bld) [Entitic vol] 9.8 fL Normal 9.0-12.7 [facility] Comment on above: Order Comment: Speci men Type: BLOOD SPECIMENOrdering Facility: [facility] Address: [address] [place] [address] Performed By: #### 5 8410-2 ####[facility]ORATORYCLIA [id number] [address] [place] Platelets (Bld) [#/Vol] 295 10*3/uL Normal 150-400 [facility] Comment on above: Order Comment: Speci men Type: BLOOD SPECIMENOrdering Facility: [facility] Address: [address] [place] [address] Performed By: #### 5 8410-2 ####[facility]ORATORYCLIA [id number] [place] [address] [place] RBC (Bld) [#/Vol] 3.31 10*6/uL Low 4.20-6.00 [facility] Comment on above: Order Comment: Speci men Type: BLOOD SPECIMENOrdering Facility: [facility] Address: [address] [place] [address] Performed By: #### 5 8410-2 ####[facility]ORATORYCLIA [id number] [place] [address] [place] WBC (Bld) [#/Vol] 8.86 10*3/uL Normal 3.70-11.00 [facility] Comment on above: Order Comment: Speci men Type: BLOOD SPECIMENOrdering Facility: [facility] Address: [address] [place] [address] Performed By: #### 5 8410-2 ####[facility] LABORATORYCLIA [id number] [address] [place] CONSULT PROGon 07-07-2025 CONSULT PROG Normal [facility] CONSULT PROG Normal [facility] CRP SerPl-mCncon 07-07-2025 CRP [Mass/Vol] 5.0 mg/dL High <0.9 [facility] Comment on above: Order Comment: Zach schwartz Type: BLOOD SPECIMENOrdering Facility: [facility] Address: [address] [place] [address] Performed By: #### 1 988-5, 3024-7, [facility] ####[facility]ORATORYCLIA [id number] [address] ECG COMPLETEon 07-07-2025 ECG COMPLETE Normal [facility] NURSING PROGon 07-07-2025 NURSING PROG Normal [facility] PT panel Coag (PPP)on 2024 INR Coag (PPP) [Relative time] 1.4 {INR} High 0.9-1.3 [facility] Comment on above: Order Comment: Spectrent schwartz Type: BLOOD SPECIMENOrdering Facility: [facility] Address: [address] [place] [address] Result Comment: Zina min K Antagonist (VKA) Therapeutic Range: INR 2 to 3 (Target INR of 2.5)Note: For patients treated with VKA drugs, such as warfarin, the [place] [employer] 2012 Guideline recommends [...] al. Chest 2012, 141:7S-47SChino RA, et al. [facility] 2017, 70: 252-289 Performed By: #### 3 4528-0, 45147-3 ####[facility]ITALCLIA [id number] [place] [address] [place] PT Coag (PPP) [Time] 14.6 s High 9.7-13.0 [facility] Comment on above: Order Comment: Speci men Type: BLOOD SPECIMENOrdering Facility: [facility] Address: [address] [place] [address] Performed By: #### 3 4528-0, 40734-9 ####[facility]ITALCLIA [id number] [place] [address] [place] T4 Free SerPl-mCncon 025 Free T4 [Mass/Vol] 1.6 ng/dL Normal 0.9-1.7 [facility] Comment on above: Order Comment: Speci men Type: BLOOD SPECIMENOrdering Facility: [facility] Address: [address] [place] [address] Performed By: #### 1 988-5, 3024-7, TSHRF ####[facility] HOSPITALIA [id number] [address] [place] TSH W/REFLEX FT4on TSH Qn 10.600 m[IU]/L High 0.270-4.200 [facility] Comment on above: Order Comment: Speci men Type: BLOOD SPECIMENOrdering Facility: [facility] Address: [address] [place] [address] Performed By: #### 1 988-5, 3024-7, TSHRF ####[facility] HOSPITALIA [id number] [address] [place] aPTT PPPon 07-07-2025 aPTT Coag (PPP) [Time] 55.4 s High 23.0-32.4 [facility] Comment on above: Order Comment: Speci men Type: BLOOD SPECIMENOrdering Facility: [facility] Address: [address] [place] [address] Performed By: #### 1 4979-9 ####[facility] LABORATORYCLIA [id number] [address] STATES [facility] aPTT Coag (PPP) [Time] 75.1 s High 23.0-32.4 [facility] Comment on above: Order Comment: Speci men Type: BLOOD SPECIMENOrdering Facility: [facility] Address: [address] [place] [address] Performed By: #### 1 4979-9 ####[facility]ORATORYCLIA [id number] [address] STATES [facility] aPTT Coag (PPP) [Time] 48.7 s High 23.0-32.4 [facility] Comment on above: Order Comment: Speci men Type: BLOOD SPECIMENOrdering Facility: [facility] Address: [address] [place] [address] Performed By: #### 3 4528-0, 58401-0 ####[facility]ORATORYCLIA [id number] [address] CASE MANAGEMon 07-06-2025 CASE MANAGEM Normal [facility] CBC panel Auto (Bld)on 07-06 Erythrocyte distribution width (RBC) [Ratio] 17.2 % High 11.5-15.0 [facility] Comment on above: Order Comment: Speci men Type: BLOOD SPECIMENOrdering Facility: [facility] Address: [address] [place] [address] Performed By: #### 5 8410-2 ####[facility]ORATORYCLIA [id number] [place] [address] [place] Hematocrit (Bld) [Volume fraction] 32.3 % Low 39.0-51.0 [facility] Comment on above: Order Comment: Speci men Type: BLOOD SPECIMENOrdering Facility: [facility] Address: [address] [place] [address] Performed By: #### 5 8410-2 ####[facility]ORATORYCLIA [id number] [address] [place] Hemoglobin (Bld) [Mass/Vol] 10.0 g/dL Low 13.0-17.0 [facility] Comment on above: Order Comment: Speci men Type: BLOOD SPECIMENOrdering Facility: [facility] Address: [address] [place] [address] Performed By: #### 5 8410-2 ####[facility]ORATORYCLIA [id number] [address] MCH (RBC) [Entitic mass] 31.4 pg Normal 26.0-34.0 [facility] Comment on above: Order Comment: Speci men Type: BLOOD SPECIMENOrdering Facility: [facility] Address: [address] [place] [address] Performed By: #### 5 8410-2 ####[facility]ORATORYCLIA [id number] [address] MCHC (RBC) [Mass/Vol] 31.0 g/dL Normal 30.5-36.0 [facility] Comment on above: Order Comment: Speci men Type: BLOOD SPECIMENOrdering Facility: [facility] Address: [address] [place] [address] Performed By: #### 5 8410-2 ####[facility]ORATORYCLIA [id number] [address] MCV (RBC) [Entitic vol] 101.6 fL High 80.0-100.0 [facility] Comment on above: Order Comment: Speci men Type: BLOOD SPECIMENOrdering Facility: [facility] Address: [address] [place] [address] Performed By: #### 5 8410-2 ####[facility]ATORYCLIA [id number] [address] Nucleated RBC (Bld) [#/Vol] 10*3/uL Normal <0.01 [facility] Comment on above: Order Comment: Speci men Type: BLOOD SPECIMENOrdering Facility: [facility] Address: [address] [place] [address] Performed By: #### 5 8410-2 ####[facility]ORATORYCLIA [id number] [address] [place] Platelet mean volume (Bld) [Entitic vol] 10.2 fL Normal 9.0-12.7 [facility] Comment on above: Order Comment: Speci men Type: BLOOD SPECIMENOrdering Facility: [facility] Address: [address] [place] [address] Performed By: #### 5 8410-2 ####[facility]ORATORYCLIA [id number] [place] [address] [place] Platelets (Bld) [#/Vol] 232 10*3/uL Normal 150-400 [facility] Comment on above: Order Comment: Speci men Type: BLOOD SPECIMENOrdering Facility: [facility] Address: [address] [place] [address] Performed By: #### 5 8410-2 ####[facility]ORATORYCLIA [id number] [place] [address] [place] RBC (Bld) [#/Vol] 3.18 10*6/uL Low 4.20-6.00 [facility] Comment on above: Order Comment: Speci men Type: BLOOD SPECIMENOrdering Facility: [facility] Address: [address] [place] [address] Performed By: #### 5 8410-2 ####[facility]ORATORYCLIA [id number] [place] [address] [place] WBC (Bld) [#/Vol] 8.58 10*3/uL Normal 3.70-11.00 [facility] Comment on above: Order Comment: Speci men Type: BLOOD SPECIMENOrdering Facility: [facility] Address: [address] [place] [address] Performed By: #### 5 8410-2 ####[facility]ORATORYCLIA [id number] [address] [place] CONSULT PROGon 07-06-2025 CONSULT PROG Normal [facility] CONSULT PROG Normal [facility] CONSULT PROG Normal [facility] NURSING PROGon 07-06-2025 NURSING PROG Normal [facility] NURSING PROG Normal [facility] PT panel Coag (PPP)on 2024 INR Coag (PPP) [Relative time] 1.5 {INR} High 0.9-1.3 [facility] Comment on above: Order Comment: Zach schwartz Type: BLOOD SPECIMENOrdering Facility: [facility] Address: [address] [place] [address] Result Comment: Zina min K Antagonist (VKA) Therapeutic Range: INR 2 to 3 (Target INR of 2.5)Note: For patients treated with VKA drugs, such as warfarin, the [place] [employer] 2012 Guideline recommends [...] of 3).Henriettatt GH, et al. Chest 2012, 141:7S-47SNishdawood RA, et al. [facility] 2017, 70: 252-289 Performed By: #### 1 4979-9, 23958-3 ####[facility]ORATORYCLIA [id number] [address] [place] PT Coag (PPP) [Time] 16.3 s High 9.7-13.0 [facility] Comment on above: Order Comment: Zach schwartz Type: BLOOD SPECIMENOrdering Facility: [facility] Address: [address] [id number] Performed By: #### 1 4979-9, 93340-7 ####[facility]ORATORYCLIA [id number] [address] [place] THERAPY NTon 07-06-2025 THERAPY NT Normal [facility] aPTT PPPon 07-06-2025 aPTT Coag (PPP) [Time] 73.0 s High 23.0-32.4 [facility] Comment on above: Order Comment: Speci men Type: BLOOD SPECIMENOrdering Facility: [facility] Address: [address] [place] [address] Performed By: #### 1 4979-9 ####[facility] LABORATORYCLIA [id number] [address] STATES OF [facility] aPTT Coag (PPP) [Time] 67.3 s High 23.0-32.4 [facility] Comment on above: Order Comment: Speci men Type: BLOOD SPECIMENOrdering Facility: [facility] Address: [address] [place] [address] Performed By: #### 1 4979-9 ####[facility] LABORATORYCLIA [id number] [address] STATES [facility] aPTT Coag (PPP) [Time] 99.1 s High 23.0-32.4 [facility] Comment on above: Order Comment: Speci men Type: BLOOD SPECIMENOrdering Facility: [facility] Address: [address] [place] [address] Performed By: #### 1 4979-9, 26985-6 ####[facility] LABORATORYCLIA [id number] [address] STATES OF [facility] aPTT Coag (PPP) [Time] 100.9 s High 23.0-32.4 [facility] Comment on above: Order Comment: Speci men Type: BLOOD SPECIMENOrdering Facility: [facility] Address: [address] [place] [address] Performed By: #### 1 4979-9 ####[facility] LABORATORYCLIA [id number] [address] CBC panel Auto (Bld)on 07-05 Erythrocyte distribution width (RBC) [Ratio] 17.3 % High 11.5-15.0 [facility] Comment on above: Order Comment: Speci men Type: BLOOD SPECIMENOrdering Facility: [facility] Address: [address] [place] [address] Performed By: #### 5 8410-2 ####[facility] LABORATORYCLIA [id number] [address] Hematocrit (Bld) [Volume fraction] 34.6 % Low 39.0-51.0 [facility] Comment on above: Order Comment: Speci men Type: BLOOD SPECIMENOrdering Facility: [facility] Address: [address] [place] [address] Performed By: #### 5 8410-2 ####[facility]ORATORYCLIA [id number] [address] OF [facility] Hemoglobin (Bld) [Mass/Vol] 10.6 g/dL Low 13.0-17.0 [facility] Comment on above: Order Comment: Speci men Type: BLOOD SPECIMENOrdering Facility: [facility] Address: [address] [place] [address] Performed By: #### 5 8410-2 ####[facility] LABORATORYCLIA [id number] [address] OF [facility] MCH (RBC) [Entitic mass] 30.0 pg Normal 26.0-34.0 [facility] Comment on above: Order Comment: Speci men Type: BLOOD SPECIMENOrdering Facility: [facility] Address: [address] [place] [address] Performed By: #### 5 8410-2 ####[facility]ORATORYCLIA [id number] [address] [place] MCHC (RBC) [Mass/Vol] 30.6 g/dL Normal 30.5-36.0 [facility] Comment on above: Order Comment: Speci men Type: BLOOD SPECIMENOrdering Facility: [facility] Address: [address] [place] [address] Performed By: #### 5 8410-2 ####[facility]ORATORYCLIA [id number] [address] [place] MCV (RBC) [Entitic vol] 98.0 fL Normal 80.0-100.0 [facility] Comment on above: Order Comment: Speci men Type: BLOOD SPECIMENOrdering Facility: [facility] Address: [address] [place] [address] Performed By: #### 5 8410-2 ####[facility]ATORYCLIA [id number] [place] [address] [place] Nucleated RBC (Bld) [#/Vol] 10*3/uL Normal <0.01 [facility] Comment on above: Order Comment: Speci men Type: BLOOD SPECIMENOrdering Facility: [facility] Address: [address] [place] [address] Performed By: #### 5 8410-2 ####[facility]ORATORYCLIA [id number] [place] [address] [place] Platelet mean volume (Bld) [Entitic vol] 9.5 fL Normal 9.0-12.7 [facility] Comment on above: Order Comment: Speci men Type: BLOOD SPECIMENOrdering Facility: [facility] Address: [address] [place] [address] Performed By: #### 5 8410-2 ####[facility]ATORYCLIA [id number] [place] [address] [place] Platelets (Bld) [#/Vol] 250 10*3/uL Normal 150-400 [facility] Comment on above: Order Comment: Speci men Type: BLOOD SPECIMENOrdering Facility: [facility] Address: [address] [place] [address] Performed By: #### 5 8410-2 ####[facility]ORATORYCLIA [id number] [place] [address] [place] RBC (Bld) [#/Vol] 3.53 10*6/uL Low 4.20-6.00 [facility] Comment on above: Order Comment: Speci men Type: BLOOD SPECIMENOrdering Facility: [facility] Address: [address] [place] [address] Performed By: #### 5 8410-2 ####[facility]ORATORYCLIA [id number] [address] WBC (Bld) [#/Vol] 9.85 10*3/uL Normal 3.70-11.00 [facility] Comment on above: Order Comment: Zach jordan Type: BLOOD SPECIMENOrdering Facility: [facility] Address: [address] [place] [address] Performed By: #### 5 8410-2 ####[facility]ORATORYCLIA [id number] [address] CONSULT PROGon 07-05-2025 CONSULT PROG Normal [facility] PT panel Coag (PPP)on 2024 INR Coag (PPP) [Relative time] 1.6 {INR} High 0.9-1.3 [facility] Comment on above: Order Comment: Zach schwartz Type: BLOOD SPECIMENOrdering Facility: [facility] Address: [address] [place] [address] Result Comment: Zina min K Antagonist (VKA) Therapeutic Range: INR 2 to 3 (Target INR of 2.5)Note: For patients treated with VKA drugs, such as warfarin, the [place] [employer] 2012 Guideline recommends [...] al. Chest 2012, 141:7S-47SNishimura RA, et al. JAC 2017, 70: 252-289 Performed By: #### 3 4528-0, 57049-6 ####[facility]ORATORYCLIA [id number] [address] [place] PT Coag (PPP) [Time] 17.1 s High 9.7-13.0 [facility] Comment on above: Order Comment: Speci men Type: BLOOD SPECIMENOrdering Facility: [facility] Address: [address] [place] [address] Performed By: #### 3 4528-0, 63613-5 ####[facility]ORATORYCLIA [id number] [place] [address] [place] INR Coag (PPP) [Relative time] 1.7 {INR} High 0.9-1.3 [facility] Comment on above: Order Comment: Speci men Type: BLOOD SPECIMENOrdering Facility: [facility] Address: [address] [place] [address] Result Comment: Zina min K Antagonist (VKA) Therapeutic Range: INR 2 to 3 (Target INR of 2.5)Note: For patients treated with VKA drugs, such as warfarin, the [place] [employer] 2012 Guideline recommends [...] al. Chest 2012, 141:7S-47SNishimura RA, et al. [facility] 2017, 70: 252-289 Performed By: #### 3 4528-0 ####[facility]ORATORYCLIA [id number] [place] [address] [place] PT Coag (PPP) [Time] 17.3 s High 9.7-13.0 [facility] Comment on above: Order Comment: Speci men Type: BLOOD SPECIMENOrdering Facility: [facility] Address: [address] [place] [address] Performed By: #### 3 4528-0 ####[facility]ORATORYCLIA [id number] [address] [place] THERAPY NTon 07-05-2025 THERAPY NT Normal [facility] THERAPY NT Normal [facility] aPTT PPPon 07-05-2025 aPTT Coag (PPP) [Time] 110.5 s High 23.0-32.4 [facility] Comment on above: Order Comment: Speci men Type: BLOOD SPECIMENOrdering Facility: [facility] Address: [address] [place] [address] Performed By: #### 1 4979-9 ####[facility]ORATORYCLIA [id number] [address] aPTT Coag (PPP) [Time] 37.3 s High 23.0-32.4 [facility] Comment on above: Order Comment: Speci men Type: BLOOD SPECIMENOrdering Facility: [facility] Address: [address] [place] [address] Performed By: #### 3 4528-0, 69226-8 ####[facility]ORATORYCLIA [id number] [address] [place] Basic metabolic 2000 panelon 07-04-2025 Anion gap [Moles/Vol] 11 mmol/L Normal 8-15 [facility] Comment on above: Order Comment: Speci men Type: BLOOD SPECIMENOrdering Facility: [facility] Address: [address] [place] [address] Performed By: #### 2 4321-2 ####[facility]ORATORYCLIA [id number] [place] [address] [place] Calcium [Mass/Vol] 9.0 mg/dL Normal 8.5-10.2 [facility] Comment on above: Order Comment: Speci men Type: BLOOD SPECIMENOrdering Facility: [facility] Address: [address] [place] [address] Performed By: #### 2 4321-2 ####[facility]ORATORYCLIA [id number] [address] [place] Chloride [Moles/Vol] 96 mmol/L Low 98-107 [facility] Comment on above: Order Comment: Speci men Type: BLOOD SPECIMENOrdering Facility: [facility] Address: [address] [place] [address] Performed By: #### 2 4321-2 ####[facility]ORATORYCLIA [id number] [address] [place] CO2 [Moles/Vol] 27 mmol/L Normal 22-30 [facility] Comment on above: Order Comment: Speci men Type: BLOOD SPECIMENOrdering Facility: [facility] Address: [address] [place] [address] Performed By: #### 2 4321-2 ####[facility]ORATORYCLIA [id number] [address] STATES OF [facility] Creatinine [Mass/Vol] 3.11 mg/dL High 0.73-1.22 [facility] Comment on above: Order Comment: Speci men Type: BLOOD SPECIMENOrdering Facility: [facility] Address: [address] [place] [address] Performed By: #### 2 4321-2 ####[facility]ORATORYCLIA [id number] [address] eGFRcr SerPlBld CKD-EPI 2020 20 mL/min/1.73m??? Low >=60 [facility] Comment on above: Order Comment: Speci men Type: BLOOD SPECIMENOrdering Facility: [facility] Address: [address] [place] [address] Result Comment: Faviola mated Glomerular Filtration Rate [...] actual GFR. Performed By: #### 2 4321-2 ####[facility]ORATORYCLIA [id number] [address] [place] Glucose [Mass/Vol] 97 mg/dL Normal 74-99 [facility] Comment on above: Order Comment: Speci men Type: BLOOD SPECIMENOrdering Facility: [facility] Address: [address] [place], [place] [id number] Result Comment: The [place] [employer] (ADA) provides guidance for cutoff [...] Standards of Medical Care in Diabetes 2016, [place] [employer]. Diabetes Care. 2016.39(Suppl 1). Performed By: #### 2 4321-2 ####[facility]ORATORYCLIA [id number] [place] [address] [place] Potassium [Moles/Vol] 3.8 mmol/L Normal 3.7-5.1 [facility] Comment on above: Order Comment: Zach jordan Type: BLOOD SPECIMENOrdering Facility: [facility] Address: [address] [place] [address] Performed By: #### 2 4321-2 ####[facility]ORATORYCLIA [id number] [place] [address] [place] Sodium [Moles/Vol] 134 mmol/L Low 136-144 [facility] Comment on above: Order Comment: Camdeni men Type: BLOOD SPECIMENOrdering Facility: [facility] Address: [address] [place] [id number] Performed By: #### 2 4321-2 ####[facility]ORATORYCLIA [id number] [place] [address] [place] Urea nitrogen [Mass/Vol] 12 mg/dL Normal 9-24 [facility] Comment on above: Order Comment: Camdeni men Type: BLOOD SPECIMENOrdering Facility: [facility] Address: [address] [place] [address] Performed By: #### 2 4321-2 ####[facility] LABORATORYCLIA [id number] [address] CBC panel Auto (Bld)on 07-04 Erythrocyte distribution width (RBC) [Ratio] 17.4 % High 11.5-15.0 [facility] Comment on above: Order Comment: Speci men Type: BLOOD SPECIMENOrdering Facility: [facility] Address: [address] [place] [address] Performed By: #### 5 8410-2 ####[facility] LABORATORYCLIA [id number] [address] Hematocrit (Bld) [Volume fraction] 35.5 % Low 39.0-51.0 [facility] Comment on above: Order Comment: Speci men Type: BLOOD SPECIMENOrdering Facility: [facility] Address: [address] [place] [address] Performed By: #### 5 8410-2 ####[facility]ORATORYCLIA [id number] [address] Hemoglobin (Bld) [Mass/Vol] 10.5 g/dL Low 13.0-17.0 [facility] Comment on above: Order Comment: Speci men Type: BLOOD SPECIMENOrdering Facility: [facility] Address: [address] [place] [address] Performed By: #### 5 8410-2 ####[facility]ORATORYCLIA [id number] [address] MCH (RBC) [Entitic mass] 30.0 pg Normal 26.0-34.0 [facility] Comment on above: Order Comment: Speci men Type: BLOOD SPECIMENOrdering Facility: [facility] Address: [address] [place] [address] Performed By: #### 5 8410-2 ####[facility] LABORATORYCLIA [id number] [address] [place] MCHC (RBC) [Mass/Vol] 29.6 g/dL Low 30.5-36.0 [facility] Comment on above: Order Comment: Speci men Type: BLOOD SPECIMENOrdering Facility: [facility] Address: [address] [place] [address] Performed By: #### 5 8410-2 ####[facility]ORATORYCLIA [id number] [place] [address] [place] MCV (RBC) [Entitic vol] 101.4 fL High 80.0-100.0 [facility] Comment on above: Order Comment: Speci men Type: BLOOD SPECIMENOrdering Facility: [facility] Address: [address] [place] [address] Performed By: #### 5 8410-2 ####[facility]ORATORYCLIA [id number] [address] [place] Nucleated RBC (Bld) [#/Vol] 10*3/uL Normal <0.01 [facility] Comment on above: Order Comment: Speci men Type: BLOOD SPECIMENOrdering Facility: [facility] Address: [address] [place] [address] Performed By: #### 5 8410-2 ####[facility]ORATORYCLIA [id number] [address] [place] Platelet mean volume (Bld) [Entitic vol] 10.5 fL Normal 9.0-12.7 [facility] Comment on above: Order Comment: Speci men Type: BLOOD SPECIMENOrdering Facility: [facility] Address: [address] [place] [address] Performed By: #### 5 8410-2 ####[facility]ORATORYCLIA [id number] [place] [address] [place] Platelets (Bld) [#/Vol] 223 10*3/uL Normal 150-400 [facility] Comment on above: Order Comment: Speci men Type: BLOOD SPECIMENOrdering Facility: [facility] Address: [address] [place] [address] Performed By: #### 5 8410-2 ####[facility]ORATORYCLIA [id number] [place] [address] [place] RBC (Bld) [#/Vol] 3.50 10*6/uL Low 4.20-6.00 [facility] Comment on above: Order Comment: Zach schwartz Type: BLOOD SPECIMENOrdering Facility: [facility] Address: [address] [place] [address] Performed By: #### 5 8410-2 ####[facility]ORATORYCLIA [id number] [address] STATES OF [facility] WBC (Bld) [#/Vol] 9.55 10*3/uL Normal 3.70-11.00 [facility] Comment on above: Order Comment: Zach schwartz Type: BLOOD SPECIMENOrdering Facility: [facility] Address: [address] [place] [address] Performed By: #### 5 8410-2 ####[facility]ORATORYCLIA [id number] [address] CONSULT PROGon 07-04-2025 CONSULT PROG Normal [facility] CONSULT PROG Normal [facility] MEDICAL EMERon 07-04-2025 MEDICAL GRISELDA Normal [facility] PT panel Coag (PPP)on 2024 INR Coag (PPP) [Relative time] 2.1 {INR} High 0.9-1.3 [facility] Comment on above: Order Comment: Zach schwartz Type: BLOOD SPECIMENOrdering Facility: [facility] Address: [address] [place] [address] Result Comment: Zina min K Antagonist (VKA) Therapeutic Range: INR 2 to 3 (Target INR of 2.5)Note: For patients treated with VKA drugs, such as warfarin, the [place] [employer] 2012 Guideline recommends [...] al. Chest 2012, 141:7S-47SChino RA, et al. [facility] 2017, 70: 252-289 Performed By: #### 3 4528-0 ####[facility]ORATORYCLIA [id number] [place] [id number] [facility] PT Coag (PPP) [Time] 21.4 s High 9.7-13.0 [facility] Comment on above: Order Comment: Zach schwartz Type: BLOOD SPECIMENOrdering Facility: [facility] Address: [address] [place] [address] Performed By: #### 3 4528-0 ####[facility]ORATORYCLIA [id number] [place] [id number] [facility] CASE MANAGEMon 07-03-2025 CASE MANAGEM Normal [facility] CONSULT PROGon 07-03-2025 CONSULT PROG Normal [facility] CONSULT PROG Normal [facility] CONSULT PROG Normal [facility] NM INFECTION LIMITED WBCon 0 07-03-2025 NM INFECTION LIMITED WBC Normal [facility] PT panel Coag (PPP)on 2024 INR Coag (PPP) [Relative time] 3.4 {INR} High 0.9-1.3 [facility] Comment on above: Order Comment: Zach schwartz Type: BLOOD SPECIMENOrdering Facility: [facility] Address: [address] [id number] Result Comment: Zina min K Antagonist (VKA) Therapeutic Range: INR 2 to 3 (Target INR of 2.5)Note: For patients treated with VKA drugs, such as warfarin, the [place] [employer] 2012 Guideline recommends [...] al. Chest 2012, 141:7S-47SNishdawood RA, et al. [facility] 2017, 70: 252-289 Performed By: #### 3 4528-0 ####[facility]ITALCL[facility] [id number] [address] STATES OF [facility] PT Coag (PPP) [Time] 33.5 s High 9.7-13.0 [facility] Comment on above: Order Comment: Zach schwartz Type: BLOOD SPECIMENOrdering Facility: [facility] Address: [address] [place] [address] Performed By: #### 3 4528-0 ####[facility]ITALCLIA [id number] [address] [place] Vancomycin random [Mass/Vol] on 07-03-2025 Vancomycin [Mass/Vol] 21.0 ug/mL High 10.0-20.0 [facility] Comment on above: Order Comment: Zach schwartz Type: BLOOD SPECIMENOrdering Facility: [facility] Address: [address] [place] [address] Result Comment: Refe rence ranges and high/low indicator flags are provided as general guidelines only. The treating physician must determine appropriate target levels/dosing based on the specific clinical situation. Performed By: #### 4 091-5 ####[facility]ORATORYCLIA [id number] [address] [place] Ammonia Plas-sCncon 07-02-20 25 Ammonia (P) [Moles/Vol] 29 umol/L Normal 16-60 [facility] Comment on above: Order Comment: Zach schwartz Type: BLOOD SPECIMENOrdering Facility: [facility] Address: [address] [place] [address] Performed By: #### 1 6362-6 ####[facility]ORATORYCLIA [id number] [place] [address] [place] Basic metabolic 2000 panelon 07-02-2025 Anion gap [Moles/Vol] 16 mmol/L High 8-15 [facility] Comment on above: Order Comment: Speci men Type: BLOOD SPECIMENOrdering Facility: [facility] Address: [address] [place] [address] Performed By: #### 2 4321-2, ####[facility]ATORYCLIA [id number] [place] [address] [place] Calcium [Mass/Vol] 9.0 mg/dL Normal 8.5-10.2 [facility] Comment on above: Order Comment: Speci men Type: BLOOD SPECIMENOrdering Facility: [facility] Address: [address] [place] [address] Performed By: #### 2 4320-2, ####[facility]ORATORYCLIA [id number] [place] [address] [place] Chloride [Moles/Vol] 95 mmol/L Low 98-107 [facility] Comment on above: Order Comment: Speci men Type: BLOOD SPECIMENOrdering Facility: [facility] Address: [address] [place] [address] Performed By: #### 2 432-2, ####[facility]ATORYCLIA [id number] [place] [address] [place] CO2 [Moles/Vol] 24 mmol/L Normal 22-30 [facility] Comment on above: Order Comment: Speci men Type: BLOOD SPECIMENOrdering Facility: [facility] Address: [address] [place] [address] Performed By: #### 2 4321-2, ####[facility]ATORYCLIA [id number] [place] [address] [place] Creatinine [Mass/Vol] 3.38 mg/dL High 0.73-1.22 [facility] Comment on above: Order Comment: Speci men Type: BLOOD SPECIMENOrdering Facility: [facility] Address: [address] [place] [address] Performed By: #### 2 4321-2, 13635-5 ####[facility]ORATORYCLIA [id number] [place] [id number] [place] eGFRcr SerPlBld CKD-EPI 2020 18 mL/min/1.73m??? Low >=60 [facility] Comment on above: Order Comment: Zach jordan Type: BLOOD SPECIMENOrdering Facility: [facility] Address: [address] [place] [address] Result Comment: Faviola mated Glomerular Filtration Rate [...] actual GFR. Performed By: #### 2 4321-2, 61684-9 ####[facility]ORATORYCLIA [id number] [place] [address] [place] Glucose [Mass/Vol] 95 mg/dL Normal 74-99 [facility] Comment on above: Order Comment: Zach schwartz Type: BLOOD SPECIMENOrdering Facility: [facility] Address: [address] [place] [address] Result Comment: The [place] Diabetes [employer] (ADA) provides guidance for cutoff [...] Standards of Medical Care in Diabetes 2016, [place] [employer]. Diabetes Care. 2016.39(Suppl 1). Performed By: #### 2 432-2, ####[facility]ORATORYCLIA [id number] [place] [address] [place] Potassium [Moles/Vol] 4.1 mmol/L Normal 3.7-5.1 [facility] Comment on above: Order Comment: Speci men Type: BLOOD SPECIMENOrdering Facility: [facility] Address: [address] [place] [address] Performed By: #### 2 4321-2, ####[facility]ORATORYCLIA [id number] [place] [id number] [place] Sodium [Moles/Vol] 135 mmol/L Low 136-144 [facility] Comment on above: Order Comment: Speci men Type: BLOOD SPECIMENOrdering Facility: [facility] Address: [address] [place] [address] Performed By: #### 2 432-2, ####[facility]ORATORYCLIA [id number] [address] [place] Urea nitrogen [Mass/Vol] 16 mg/dL Normal 9-24 [facility] Comment on above: Order Comment: Speci men Type: BLOOD SPECIMENOrdering Facility: [facility] Address: [address] [place] [address] Performed By: #### 2 4322, ####[facility] LABORATORYCLIA [id number] [place] [id number] [place] CASE MANAGEMon 07-02-2025 CASE MANAGEM Normal [facility] CASE MANAGEM Normal [facility] CBC panel Auto (Bld)on 07-02 Erythrocyte distribution width (RBC) [Ratio] 17.3 % High 11.5-15.0 [facility] Comment on above: Order Comment: Speci men Type: BLOOD SPECIMENOrdering Facility: [facility] Address: [address] [place], [place] [address] Performed By: #### 5 8410-2 ####[facility] LABORATORYCLIA [id number] [address] Hematocrit (Bld) [Volume fraction] 35.2 % Low 39.0-51.0 [facility] Comment on above: Order Comment: Speci men Type: BLOOD SPECIMENOrdering Facility: [facility] Address: [address] [place] [address] Performed By: #### 5 8410-2 ####[facility] LABORATORYCLIA [id number] [address] [place] Hemoglobin (Bld) [Mass/Vol] 10.8 g/dL Low 13.0-17.0 [facility] Comment on above: Order Comment: Speci men Type: BLOOD SPECIMENOrdering Facility: [facility] Address: [address] [place] [address] Performed By: #### 5 8410-2 ####[facility] LABORATORYCLIA [id number] [address] STATES OF [facility] MCH (RBC) [Entitic mass] 30.4 pg Normal 26.0-34.0 [facility] Comment on above: Order Comment: Speci men Type: BLOOD SPECIMENOrdering Facility: [facility] Address: [address] [place] [address] Performed By: #### 5 8410-2 ####[facility]ATORYCLIA [id number] [address] [place] MCHC (RBC) [Mass/Vol] 30.7 g/dL Normal 30.5-36.0 [facility] Comment on above: Order Comment: Speci men Type: BLOOD SPECIMENOrdering Facility: [facility] Address: [address] [place] [address] Performed By: #### 5 8410-2 ####[facility]ORATORYCLIA [id number] [address] MCV (RBC) [Entitic vol] 99.2 fL Normal 80.0-100.0 [facility] Comment on above: Order Comment: Speci men Type: BLOOD SPECIMENOrdering Facility: [facility] Address: [address] [place] [address] Performed By: #### 5 8410-2 ####[facility] LABORATORYCLIA [id number] [address] [place] Nucleated RBC (Bld) [#/Vol] 10*3/uL Normal <0.01 [facility] Comment on above: Order Comment: Speci men Type: BLOOD SPECIMENOrdering Facility: [facility] Address: [address] [place] [address] Performed By: #### 5 8410-2 ####[facility]ORATORYCLIA [id number] [address] [place] Platelet mean volume (Bld) [Entitic vol] 9.8 fL Normal 9.0-12.7 [facility] Comment on above: Order Comment: Speci men Type: BLOOD SPECIMENOrdering Facility: [facility] Address: [address] [place] [address] Performed By: #### 5 8410-2 ####[facility]ATORYCLIA [id number] [address] [place] Platelets (Bld) [#/Vol] 223 10*3/uL Normal 150-400 [facility] Comment on above: Order Comment: Speci men Type: BLOOD SPECIMENOrdering Facility: [facility] Address: [address] [place] [address] Performed By: #### 5 8410-2 ####[facility]ATORYCLIA [id number] [place] [address] [place] RBC (Bld) [#/Vol] 3.55 10*6/uL Low 4.20-6.00 [facility] Comment on above: Order Comment: Speci men Type: BLOOD SPECIMENOrdering Facility: [facility] Address: [address] [place] [address] Performed By: #### 5 8410-2 ####[facility]ORATORYCLIA [id number] [address] [place] WBC (Bld) [#/Vol] 9.46 10*3/uL Normal 3.70-11.00 [facility] Comment on above: Order Comment: Speci men Type: BLOOD SPECIMENOrdering Facility: [facility] Address: [address] [place] [address] Performed By: #### 5 8410-2 ####[facility]ORATORYCLIA [id number] [address] [place] CONSULTon 07-02-2025 CONSULT Normal [facility] CONSULT PROGon 07-02-2025 CONSULT PROG Normal [facility] CONSULT PROG Normal [facility] CONSULT PROG Normal [facility] ECG COMPLETEon 07-02-2025 ECG COMPLETE Normal [facility] Gas and Carbon monoxide pane l (BldV)on 07-02-2025 Base excess Calc (BldV) [Moles/Vol] 1 mmol/L Normal 0-2 [facility] Comment on above: Order Comment: Speci men Type: VENOUS BLOOD SPECIMENOrdering Facility: [facility] Address: [address] [place] [address] Performed By: #### 2 4344-4 ####[facility] LABORATORYCLIA [id number] [address] STATES [facility] Body temperature 98.6 [degF] Normal [facility] Comment on above: Order Comment: Speci men Type: VENOUS BLOOD SPECIMENOrdering Facility: [facility] Address: [address] [place] [address] Performed By: #### 2 4344-4 ####[facility]ORATORYCLIA [id number] [address] [place] Calcium.ionized (BldV) [Mass/Vol] 1.05 mmol/L Low 1.08-1.30 [facility] Comment on above: Order Comment: Speci men Type: VENOUS BLOOD SPECIMENOrdering Facility: [facility] Address: [address] [place] [address] Performed By: #### 2 4344-4 ####[facility]ORATORYCLIA [id number] [address] [place] Calcium.ionized adjusted to pH 7.4 (BldA) [Moles/Vol] 1.04 mmol/L Low 1.08-1.30 [facility] Comment on above: Order Comment: Speci men Type: VENOUS BLOOD SPECIMENOrdering Facility: [facility] Address: [address] [place] [address] Performed By: #### 2 4344-4 ####[facility]ORATORYCLIA [id number] [address] [place] Carboxyhemoglobin (BldV) [Mass fraction] 3.7 % High 0.0-2.0 [facility] Comment on above: Order Comment: Speci men Type: VENOUS BLOOD SPECIMENOrdering Facility: [facility] Address: [address] [place] [address] Result Comment: Carb oxyhemoglobin Reference Range for Smokers: 2.0-8.0% Performed By: #### 2 4344-4 ####[facility]ORATORYCLIA [id number] [place] [address] [place] Chloride [Moles/Vol] 102 mmol/L Normal 97-105 [facility] Comment on above: Order Comment: Speci men Type: VENOUS BLOOD SPECIMENOrdering Facility: [facility] Address: [address] [place] [address] Performed By: #### 2 4344-4 ####[facility]ORATORYCLIA [id number] [address] [place] CO2 (BldV) [Partial pressure] 45 mm[Hg] Normal 42-55 [facility] Comment on above: Order Comment: Speci men Type: VENOUS BLOOD SPECIMENOrdering Facility: [facility] Address: [address] [place] [address] Performed By: #### 2 4344-4 ####[facility]ORATORYCLIA [id number] [address] [place] Glucose [Mass/Vol] 96 mg/dL Normal 60-105 [facility] Comment on above: Order Comment: Speci men Type: VENOUS BLOOD SPECIMENOrdering Facility: [facility] Address: [address] [place] [address] Performed By: #### 2 4344-4 ####[facility]ATORYCLIA [id number] [address] [place] HCO3 (Bld) [Moles/Vol] 26 mmol/L Normal 24-28 [facility] Comment on above: Order Comment: Speci men Type: VENOUS BLOOD SPECIMENOrdering Facility: [facility] Address: [address] [place] [address] Performed By: #### 2 4344-4 ####[facility]ORATORYCLIA [id number] [address] [place] Hematocrit (Bld) [Volume fraction] 32.5 % Low 39.0-51.0 [facility] Comment on above: Order Comment: Speci men Type: VENOUS BLOOD SPECIMENOrdering Facility: [facility] Address: [address] [place] [address] Performed By: #### 2 4344-4 ####[facility]ATORYCLIA [id number] [address] [place] Hemoglobin (Bld) [Mass/Vol] 10.5 g/dL Low 13.0-17.0 [facility] Comment on above: Order Comment: Speci men Type: VENOUS BLOOD SPECIMENOrdering Facility: [facility] Address: [address] [place] [address] Performed By: #### 2 4344-4 ####[facility]ORATORYCLIA [id number] [address] [place] Lactate [Moles/Vol] 1.4 mmol/L Normal 0.5-2.2 [facility] Comment on above: Order Comment: Speci men Type: VENOUS BLOOD SPECIMENOrdering Facility: [facility] Address: [address] [place] [address] Performed By: #### 2 4344-4 ####[facility]ATORYCLIA [id number] [address] [place] Methemoglobin (Bld) [Mass fraction] 0.7 % Normal 0.0-1.5 [facility] Comment on above: Order Comment: Speci men Type: VENOUS BLOOD SPECIMENOrdering Facility: [facility] Address: [address] [place] [address] Performed By: #### 2 4344-4 ####[facility]ORATORYCLIA [id number] [address] [place] O2 THERAPY RA=Room Air Normal [facility] Comment on above: Order Comment: Speci men Type: VENOUS BLOOD SPECIMENOrdering Facility: [facility] Address: [address] [place] [address] Performed By: #### 2 4344-4 ####[facility]ORATORYCLIA [id number] [address] [place] Oxygen (BldV) [Partial pressure] 57 mm[Hg] High 35-45 [facility] Comment on above: Order Comment: Speci men Type: VENOUS BLOOD SPECIMENOrdering Facility: [facility] Address: [address] [place] [address] Performed By: #### 2 4344-4 ####[facility]ORATORYCLIA [id number] [address] [place] Oxygen saturation in Venous blood 85 % Normal 60-85 [facility] Comment on above: Order Comment: Speci men Type: VENOUS BLOOD SPECIMENOrdering Facility: [facility] Address: [address] [place] [address] Performed By: #### 2 4344-4 ####[facility]ATORYCLIA [id number] [address] [place] Oxyhemoglobin (BldV) [Mass fraction] 82 % Normal 60-85 [facility] Comment on above: Order Comment: Speci men Type: VENOUS BLOOD SPECIMENOrdering Facility: [facility] Address: [address] [place] [address] Performed By: #### 2 4344-4 ####[facility]ORATORYCLIA [id number] [place] [id number] [place] pH (BldV) 7.38 [pH] Normal 7.32-7.42 [facility] Comment on above: Order Comment: Speci men Type: VENOUS BLOOD SPECIMENOrdering Facility: [facility] Address: [address] [place] [address] Performed By: #### 2 4344-4 ####[facility]ORATORYCLIA [id number] [place] [address] [place] Potassium [Moles/Vol] 4.0 mmol/L Normal 3.5-5.0 [facility] Comment on above: Order Comment: Speci men Type: VENOUS BLOOD SPECIMENOrdering Facility: [facility] Address: [address] [place] [address] Performed By: #### 2 4344-4 ####[facility]ORATORYCLIA [id number] [address] [place] Sodium [Moles/Vol] 134 mmol/L Low 136-144 [facility] Comment on above: Order Comment: Speci men Type: VENOUS BLOOD SPECIMENOrdering Facility: [facility] Address: [address] [place] [address] Performed By: #### 2 4344-4 ####[facility] LABORATORYCLIA [id number] [address] [place] Base excess Calc (BldV) [Moles/Vol] 3 mmol/L High 0-2 [facility] Comment on above: Order Comment: Speci men Type: VENOUS BLOOD SPECIMENOrdering Facility: [facility] Address: [address] [place] [address] Performed By: #### 2 4344-4 ####[facility]ORATORYCLIA [id number] [address] [place] Body temperature 98.6 [degF] Normal [facility] Comment on above: Order Comment: Speci men Type: VENOUS BLOOD SPECIMENOrdering Facility: [facility] Address: [address] [place] [address] Performed By: #### 2 4344-4 ####[facility]ORATORYCLIA [id number] [place] [address] [place] Calcium.ionized (BldV) [Mass/Vol] 1.05 mmol/L Low 1.08-1.30 [facility] Comment on above: Order Comment: Speci men Type: VENOUS BLOOD SPECIMENOrdering Facility: [facility] Address: [address] [place] [address] Performed By: #### 2 4344-4 ####[facility]ATORYCLIA [id number] [place] [address] [place] Calcium.ionized adjusted to pH 7.4 (BldA) [Moles/Vol] 1.08 mmol/L Normal 1.08-1.30 [facility] Comment on above: Order Comment: Speci men Type: VENOUS BLOOD SPECIMENOrdering Facility: [facility] Address: [address] [place] [address] Performed By: #### 2 4344-4 ####[facility]ORATORYCLIA [id number] [address] [place] Carboxyhemoglobin (BldV) [Mass fraction] 3.6 % High 0.0-2.0 [facility] Comment on above: Order Comment: Speci men Type: VENOUS BLOOD SPECIMENOrdering Facility: [facility] Address: [address] [place] [address] Result Comment: Carb oxyhemoglobin Reference Range for Smokers: 2.0-8.0% Performed By: #### 2 4344-4 ####[facility]ORATORYCLIA [id number] [place] [address] [place] Chloride [Moles/Vol] 101 mmol/L Normal 97-105 [facility] Comment on above: Order Comment: Speci men Type: VENOUS BLOOD SPECIMENOrdering Facility: [facility] Address: [address] [place] [address] Performed By: #### 2 4344-4 ####[facility]ORATORYCLIA [id number] [place] [address] [place] CO2 (BldV) [Partial pressure] 39 mm[Hg] Low 42-55 [facility] Comment on above: Order Comment: Speci men Type: VENOUS BLOOD SPECIMENOrdering Facility: [facility] Address: [address] [place] [address] Performed By: #### 2 4344-4 ####[facility]ORATORYCLIA [id number] [place] [address] [place] Glucose [Mass/Vol] 96 mg/dL Normal 60-105 [facility] Comment on above: Order Comment: Speci men Type: VENOUS BLOOD SPECIMENOrdering Facility: [facility] Address: [address] [place] [address] Performed By: #### 2 4344-4 ####[facility]ORATORYCLIA [id number] [place] [address] [place] HCO3 (Bld) [Moles/Vol] 27 mmol/L Normal 24-28 [facility] Comment on above: Order Comment: Speci men Type: VENOUS BLOOD SPECIMENOrdering Facility: [facility] Address: [address] [place] [address] Performed By: #### 2 4344-4 ####[facility]ORATORYCLIA [id number] [place] [address] [place] Hematocrit (Bld) [Volume fraction] 34.8 % Low 39.0-51.0 [facility] Comment on above: Order Comment: Speci men Type: VENOUS BLOOD SPECIMENOrdering Facility: [facility] Address: [address] [place] [address] Performed By: #### 2 4344-4 ####[facility]ATORYCLIA [id number] [place] [address] [place] Hemoglobin (Bld) [Mass/Vol] 11.3 g/dL Low 13.0-17.0 [facility] Comment on above: Order Comment: Speci men Type: VENOUS BLOOD SPECIMENOrdering Facility: [facility] Address: [address] [place] [address] Performed By: #### 2 4344-4 ####[facility]ATORYCLIA [id number] [place] [address] [place] Lactate [Moles/Vol] 1.3 mmol/L Normal 0.5-2.2 [facility] Comment on above: Order Comment: Speci men Type: VENOUS BLOOD SPECIMENOrdering Facility: [facility] Address: [address] [place] [address] Performed By: #### 2 4344-4 ####[facility]ATORYCLIA [id number] [place] [address] [place] Methemoglobin (Bld) [Mass fraction] 0.6 % Normal 0.0-1.5 [facility] Comment on above: Order Comment: Speci men Type: VENOUS BLOOD SPECIMENOrdering Facility: [facility] Address: [address] [place] [address] Performed By: #### 2 4344-4 ####[facility]ORATORYCLIA [id number] [address] O2 THERAPY RA=Room Air Normal [facility] Comment on above: Order Comment: Speci men Type: VENOUS BLOOD SPECIMENOrdering Facility: [facility] Address: [address] [place] [address] Performed By: #### 2 4344-4 ####[facility]ORATORYCLIA [id number] [place] [address] [place] Oxygen (BldV) [Partial pressure] 71 mm[Hg] High 35-45 [facility] Comment on above: Order Comment: Speci men Type: VENOUS BLOOD SPECIMENOrdering Facility: [facility] Address: [address] [place] [address] Performed By: #### 2 4344-4 ####[facility]ATORYCLIA [id number] [address] [place] Oxygen saturation in Venous blood 94 % High 60-85 [facility] Comment on above: Order Comment: Speci men Type: VENOUS BLOOD SPECIMENOrdering Facility: [facility] Address: [address] [place] [address] Performed By: #### 2 4344-4 ####[facility]ORATORYCLIA [id number] [place] [address] [place] Oxyhemoglobin (BldV) [Mass fraction] 90 % High 60-85 [facility] Comment on above: Order Comment: Speci men Type: VENOUS BLOOD SPECIMENOrdering Facility: [facility] Address: [address] [place] [address] Performed By: #### 2 4344-4 ####[facility]ATORYCLIA [id number] [place] [address] [place] pH (BldV) 7.45 [pH] High 7.32-7.42 [facility] Comment on above: Order Comment: Speci men Type: VENOUS BLOOD SPECIMENOrdering Facility: [facility] Address: [address] [place] [address] Performed By: #### 2 4344-4 ####[facility]ORATORYCLIA [id number] [place] [address] [place] Potassium [Moles/Vol] 3.9 mmol/L Normal 3.5-5.0 [facility] Comment on above: Order Comment: Speci men Type: VENOUS BLOOD SPECIMENOrdering Facility: [facility] Address: [address] [place] [address] Performed By: #### 2 4344-4 ####[facility]ATORYCLIA [id number] [place] [address] [place] Sodium [Moles/Vol] 133 mmol/L Low 136-144 [facility] Comment on above: Order Comment: Speci men Type: VENOUS BLOOD SPECIMENOrdering Facility: [facility] Address: [address] [place] [address] Performed By: #### 2 4344-4 ####[facility]ORATORYCLIA [id number] [place] [address] [place] Magnesium SerPl-mCncon 07-02 Magnesium [Mass/Vol] 2.0 mg/dL Normal 1.7-2.3 [facility] Comment on above: Order Comment: Speci men Type: BLOOD SPECIMENOrdering Facility: [facility] Address: [address] [place] [address] Performed By: #### 2 4321-2, 74062-5 ####[facility]ORATORYCLIA [id number] [place] [id number] [place] NUTRITIONon 07-02-2025 NUTRITION Normal [facility] PT panel Coag (PPP)on 2024 INR Coag (PPP) [Relative time] 3.1 {INR} High 0.9-1.3 [facility] Comment on above: Order Comment: Zach schwartz Type: BLOOD SPECIMENOrdering Facility: [facility] Address: [address] [place] [address] Result Comment: Zina min K Antagonist (VKA) Therapeutic Range: INR 2 to 3 (Target INR of 2.5)Note: For patients treated with VKA drugs, such as warfarin, the [employer] 2012 Guideline recommends [...] al. Chest 2012, 141:7S-47SChino RA, et al. [facility] 2017, 70: 252-289 Performed By: #### 3 4528-0 ####[facility]ORATORYCLIA [id number] [place] [id number] [place] PT Coag (PPP) [Time] 31.4 s High 9.7-13.0 [facility] Comment on above: Order Comment: Zach schwartz Type: BLOOD SPECIMENOrdering Facility: [facility] Address: [address] [place] [address] Performed By: #### 3 4528-0 ####[facility]ORATORYCLIA [id number] [place] [id number] [place] THERAPY NTon 07-02-2025 THERAPY NT Normal [facility] THERAPY NT Normal [facility] XR ABDOMEN 1V SUPINEon 07-02 XR ABDOMEN 1V SUPINE Normal [facility] CASE MANAGEMon 07-01-2025 CASE MANAGEM Normal [facility] CBC W Auto Differential pane l (Bld)on 07-01-2025 Basophils (Bld) [#/Vol] 0.10 10*3/uL Normal <0.11 [facility] Comment on above: Order Comment: Speci men Type: BLOOD SPECIMENOrdering Facility: [facility] Address: [address] [place] [address] Performed By: #### 5 7021-8 ####[facility]ATORYCLIA [id number] [place] [address] [place] Basophils/100 WBC (Bld) 1.1 % Normal [facility] Comment on above: Order Comment: Speci men Type: BLOOD SPECIMENOrdering Facility: [facility] Address: [address] [place] [address] Performed By: #### 5 7021-8 ####[facility]ATORYCLIA [id number] [place] [address] [place] Differential cell count method Nom (Bld) Auto Normal [facility] Comment on above: Order Comment: Speci men Type: BLOOD SPECIMENOrdering Facility: [facility] Address: [address] [place] [address] Performed By: #### 5 7021-8 ####[facility]ORYCLIA [id number] [place] [address] [place] Eosinophils (Bld) [#/Vol] 0.43 10*3/uL Normal <0.46 [facility] Comment on above: Order Comment: Speci men Type: BLOOD SPECIMENOrdering Facility: [facility] Address: [address] [place] [address] Performed By: #### 5 7021-8 ####[facility]ORYCLIA [id number] [place] [address] [place] Eosinophils/100 WBC (Bld) 4.7 % Normal [facility] Comment on above: Order Comment: Speci men Type: BLOOD SPECIMENOrdering Facility: [facility] Address: [address] [place] [address] Performed By: #### 5 7021-8 ####[facility]ORATORYCLIA [id number] [address] [place] Erythrocyte distribution width (RBC) [Ratio] 17.8 % High 11.5-15.0 [facility] Comment on above: Order Comment: Speci men Type: BLOOD SPECIMENOrdering Facility: [facility] Address: [address] [place] [address] Performed By: #### 5 7021-8 ####[facility]ORATORYCLIA [id number] [address] [place] Hematocrit (Bld) [Volume fraction] 37.1 % Low 39.0-51.0 [facility] Comment on above: Order Comment: Speci men Type: BLOOD SPECIMENOrdering Facility: [facility] Address: [address] [place] [address] Performed By: #### 5 7021-8 ####[facility] LABORATORYCLIA [id number] [address] [place] Hemoglobin (Bld) [Mass/Vol] 10.9 g/dL Low 13.0-17.0 [facility] Comment on above: Order Comment: Speci men Type: BLOOD SPECIMENOrdering Facility: [facility] Address: [address] [place] [address] Performed By: #### 5 7021-8 ####ST. [facility]ATORYCLIA [id number] [address] [place] Immature granulocytes (Bld) [#/Vol] 0.06 10*3/uL Normal <0.10 [facility] Comment on above: Order Comment: Speci men Type: BLOOD SPECIMENOrdering Facility: [facility] Address: [address] [place] [address] Performed By: #### 5 7021-8 ####[facility] LABORATORYCLIA [id number] [address] OF [facility] Immature granulocytes/100 WBC (Bld) 0.7 % Normal [facility] Comment on above: Order Comment: Speci men Type: BLOOD SPECIMENOrdering Facility: [facility] Address: [address] [place] [address] Performed By: #### 5 7021-8 ####[facility] LABORATORYCLIA [id number] [place] [address] [place] Lymphocytes (Bld) [#/Vol] 1.54 10*3/uL Normal 1.00-4.00 [facility] Comment on above: Order Comment: Speci men Type: BLOOD SPECIMENOrdering Facility: [facility] Address: [address] [place] [address] Performed By: #### 5 7021-8 ####[facility]ORATORYCLIA [id number] [address] Lymphocytes/100 WBC (Bld) 16.8 % Normal [facility] Comment on above: Order Comment: Speci men Type: BLOOD SPECIMENOrdering Facility: [facility] Address: [address] [place] [address] Performed By: #### 5 7021-8 ####[facility]ORATORYCLIA [id number] [address] [place] MCH (RBC) [Entitic mass] 29.7 pg Normal 26.0-34.0 [facility] Comment on above: Order Comment: Speci men Type: BLOOD SPECIMENOrdering Facility: [facility] Address: [address] [place] [address] Performed By: #### 5 7021-8 ####[facility]ORATORYCLIA [id number] [address] [place] MCHC (RBC) [Mass/Vol] 29.4 g/dL Low 30.5-36.0 [facility] Comment on above: Order Comment: Speci men Type: BLOOD SPECIMENOrdering Facility: [facility] Address: [address] [place] [address] Performed By: #### 5 7021-8 ####[facility]ORATORYCLIA [id number] [place] [address] [place] MCV (RBC) [Entitic vol] 101.1 fL High 80.0-100.[address] [facility] Comment on above: Order Comment: Speci men Type: BLOOD SPECIMENOrdering Facility: [facility] Address: [address] [place] [address] Performed By: #### 5 7021-8 ####[facility]ORATORYCLIA [id number] [address] [place] Monocytes (Bld) [#/Vol] 0.96 10*3/uL High <0.87 [facility] Comment on above: Order Comment: Speci men Type: BLOOD SPECIMENOrdering Facility: [facility] Address: [address] [place] [address] Performed By: #### 5 7021-8 ####[facility]ATORYCLIA [id number] [address] Monocytes/100 WBC (Bld) 10.5 % Normal A [facility] Comment on above: Order Comment: Speci men Type: BLOOD SPECIMENOrdering Facility: [facility] Address: [address] [place] [address] Performed By: #### 5 7021-8 ####[facility]ORATORYCLIA [id number] [address] [place] Neutrophils (Bld) [#/Vol] 6.09 10*3/uL Normal 1.45-7.50 [facility] Comment on above: Order Comment: Speci men Type: BLOOD SPECIMENOrdering Facility: [facility] Address: [address] [place] [address] Performed By: #### 5 7021-8 ####[facility]ORATORYCLIA [id number] [address] [place] Neutrophils/100 WBC (Bld) 66.2 % Normal [facility] Comment on above: Order Comment: Speci men Type: BLOOD SPECIMENOrdering Facility: [facility] Address: [address] [place] [address] Performed By: #### 5 7021-8 ####[facility]ORATORYCLIA [id number] [address] [place] Nucleated RBC (Bld) [#/Vol] 10*3/uL Normal <0.01 [facility] Comment on above: Order Comment: Speci men Type: BLOOD SPECIMENOrdering Facility: [facility] Address: [address] [place] [address] Performed By: #### 5 7021-8 ####[facility]ORATORYCLIA [id number] [address] [place] Nucleated RBC/100 WBC (Bld) [Ratio] 0.0 /100 WBC Normal [facility] Comment on above: Order Comment: Speci men Type: BLOOD SPECIMENOrdering Facility: [facility] Address: [address] [place] [address] Performed By: #### 5 7021-8 ####[facility]ORATORYCLIA [id number] [address] [place] Platelet mean volume (Bld) [Entitic vol] 11.1 fL Normal 9.0-12.7 [facility] Comment on above: Order Comment: Speci men Type: BLOOD SPECIMENOrdering Facility: [facility] Address: [address] [place] [address] Performed By: #### 5 7021-8 ####[facility]ORATORYCLIA [id number] [address] [place] Platelets (Bld) [#/Vol] 176 10*3/uL Normal 150-400 [facility] Comment on above: Order Comment: Speci men Type: BLOOD SPECIMENOrdering Facility: [facility] Address: [address] [place] [address] Performed By: #### 5 7021-8 ####[facility]ORATORYCLIA [id number] [place] [address] [place] RBC (Bld) [#/Vol] 3.67 10*6/uL Low 4.20-6.00 [facility] Comment on above: Order Comment: Speci men Type: BLOOD SPECIMENOrdering Facility: [facility] Address: [address] [place] [address] Performed By: #### 5 7021-8 ####[facility]ATORYCLIA [id number] [place] [address] [place] WBC (Bld) [#/Vol] 9.18 10*3/uL Normal 3.70-11.00 [facility] Comment on above: Order Comment: Speci men Type: BLOOD SPECIMENOrdering Facility: [facility] Address: [address] [place] [address] Performed By: #### 5 7021-8 ####[facility]ORATORYCLIA [id number] [address] OF [facility] CONSULT PROGon 07-01-2025 CONSULT PROG Normal [facility] CONSULT PROG Normal [facility] Comprehensive metabolic 2000 panelon 07-01-2025 Albumin [Mass/Vol] 3.0 g/dL Low 3.9-4.9 [facility] Comment on above: Order Comment: Speci men Type: BLOOD SPECIMENOrdering Facility: [facility] Address: [address] [place] [address] Performed By: #### 2 4323-8 ####[facility]ATORYCLIA [id number] [address] [place] ALP [Catalytic activity/Vol] 499 U/L High 38-113 [facility] Comment on above: Order Comment: Speci men Type: BLOOD SPECIMENOrdering Facility: [facility] Address: [address] [place] [address] Performed By: #### 2 4323-8 ####[facility]ORATORYCLIA [id number] [address] [place] ALT With P-5'-P [Catalytic activity/Vol] 14 U/L Normal 10-54 [facility] Comment on above: Order Comment: Speci men Type: BLOOD SPECIMENOrdering Facility: [facility] Address: [address] [place] [address] Performed By: #### 2 4323-8 ####[facility]ORATORYCLIA [id number] [place] [address] [place] Anion gap [Moles/Vol] 15 mmol/L Normal 8-15 [facility] Comment on above: Order Comment: Speci men Type: BLOOD SPECIMENOrdering Facility: [facility] Address: [address] [place] [address] Performed By: #### 2 4323-8 ####[facility]ATORYCLIA [id number] [place] [address] [place] AST With P-5'-P [Catalytic activity/Vol] 32 U/L Normal 14-40 [facility] Comment on above: Order Comment: Speci men Type: BLOOD SPECIMENOrdering Facility: [facility] Address: [address] [place] [address] Performed By: #### 2 4323-8 ####[facility]ORATORYCLIA [id number] [place] [address] [place] Bilirubin [Mass/Vol] 0.7 mg/dL Normal 0.2-1.3 [facility] Comment on above: Order Comment: Speci men Type: BLOOD SPECIMENOrdering Facility: [facility] Address: [address] [place] [address] Performed By: #### 2 4323-8 ####[facility]ATORYCLIA [id number] [address] [place] Calcium [Mass/Vol] 9.0 mg/dL Normal 8.5-10.2 [facility] Comment on above: Order Comment: Speci men Type: BLOOD SPECIMENOrdering Facility: [facility] Address: [address] [place] [address] Performed By: #### 2 4323-8 ####[facility]ORATORYCLIA [id number] [place] [address] [place] Chloride [Moles/Vol] 96 mmol/L Low 98-107 [facility] Comment on above: Order Comment: Speci men Type: BLOOD SPECIMENOrdering Facility: [facility] Address: [address] [place] [address] Performed By: #### 2 4323-8 ####[facility]ATORYCLIA [id number] [place] [address] [place] CO2 [Moles/Vol] 24 mmol/L Normal 22-30 [facility] Comment on above: Order Comment: Speci men Type: BLOOD SPECIMENOrdering Facility: [facility] Address: [address] [place] [address] Performed By: #### 2 4323-8 ####[facility]ATORYCLIA [id number] [place] [address] [place] Creatinine [Mass/Vol] 4.73 mg/dL High 0.73-1.22 [facility] Comment on above: Order Comment: Speci men Type: BLOOD SPECIMENOrdering Facility: [facility] Address: [address] [place] [address] Performed By: #### 2 4323-8 ####[facility]ATORYCLIA [id number] [address] [place] eGFRcr SerPlBld CKD-EPI 2020 12 mL/min/1.73m??? Low >=60 [facility] Comment on above: Order Comment: Speci men Type: BLOOD SPECIMENOrdering Facility: [facility] Address: [address] [place] [address] Result Comment: Faviola mated Glomerular Filtration Rate [...] actual GFR. Performed By: #### 2 4323-8 ####[facility]ORATORYCLIA [id number] [place] [address] [place] Glucose [Mass/Vol] 92 mg/dL Normal 74-99 [facility] Comment on above: Order Comment: Speci men Type: BLOOD SPECIMENOrdering Facility: [facility] Address: [address] [place] [address] Result Comment: The [place] [employer] (ADA) provides guidance for cutoff [...] Standards of Medical Care in Diabetes 2016, [place] [employer]. Diabetes Care. 2016.39(Suppl 1). Performed By: #### 2 4323-8 ####[facility]ORATORYCLIA [id number] [place] [address] [place] Potassium [Moles/Vol] 4.8 mmol/L Normal 3.7-5.1 [facility] Comment on above: Order Comment: Speci men Type: BLOOD SPECIMENOrdering Facility: [facility] Address: [address] [place] [address] Performed By: #### 2 4323-8 ####[facility]ATORYCLIA [id number] [place] [address] [place] Protein [Mass/Vol] 7.0 g/dL Normal 6.3-8.0 [facility] Comment on above: Order Comment: Speci men Type: BLOOD SPECIMENOrdering Facility: [facility] Address: [address] [place] [address] Performed By: #### 2 4323-8 ####[facility]ATORYCLIA [id number] [place] [address] [place] Sodium [Moles/Vol] 135 mmol/L Low 136-144 [facility] Comment on above: Order Comment: Speci men Type: BLOOD SPECIMENOrdering Facility: [facility] Address: [address] [place] [address] Performed By: #### 2 4323-8 ####[facility]ORATORYCLIA [id number] [place] [id number] [place] [facility] Urea nitrogen [Mass/Vol] 24 mg/dL Normal 9-24 [facility] Comment on above: Order Comment: Speci men Type: BLOOD SPECIMENOrdering Facility: [facility] Address: [address] [place] [address] Performed By: #### 2 4323-8 ####[facility]ORATORYCLIA [id number] [address] OF [facility] NURSING PROGon 07-01-2025 NURSING PROG Normal [facility] NURSING PROG Normal [facility] NURSING PROG Normal [facility] PT panel Coag (PPP)on 2024 INR Coag (PPP) [Relative time] 3.7 {INR} High 0.9-1.3 [facility] Comment on above: Order Comment: Speci men Type: BLOOD SPECIMENOrdering Facility: [facility] Address: [address] [facility] [place] [address] Result Comment: Zina min K Antagonist (VKA) Therapeutic Range: INR 2 to 3 (Target INR of 2.5)Note: For patients treated with VKA drugs, such as warfarin, the [place] [employer] 2012 Guideline recommends [...] al. Chest 2012, 141:7S-47SChino ELIZABETH, et al. [facility] 2017, 70: 252-289 Performed By: #### 3 4528-0 ####[facility]ATORYCLIA [id number] [address] [place] PT Coag (PPP) [Time] 36.2 s High 9.7-13.0 [facility] Comment on above: Order Comment: Speci men Type: BLOOD SPECIMENOrdering Facility: [facility] Address: [address] [place] [address] Performed By: #### 3 4528-0 ####[facility]ORATORYCLIA [id number] [address] OF [facility] CASE MANAGEMon 06-30-2025 CASE MANAGEM Normal [facility] CBC W Auto Differential pane l (Bld)on 06-30-2025 Basophils (Bld) [#/Vol] 0.13 10*3/uL High <0.11 [facility] Comment on above: Order Comment: Speci men Type: BLOOD SPECIMENOrdering Facility: [facility] Address: [address] [place] [address] Performed By: #### 5 7021-8 ####[facility]ORATORYCLIA [id number] [address] [place] Basophils/100 WBC (Bld) 1.2 % Normal A [facility] Comment on above: Order Comment: Speci men Type: BLOOD SPECIMENOrdering Facility: [facility] Address: [address] [place] [address] Performed By: #### 5 7021-8 ####[facility]ATORYCLIA [id number] [address] STATES OF [facility] Differential cell count method Nom (Bld) Auto Normal [facility] Comment on above: Order Comment: Speci men Type: BLOOD SPECIMENOrdering Facility: [facility] Address: [address] [place] [address] Performed By: #### 5 7021-8 ####[facility]ORATORYCLIA [id number] [place] [address] [place] Eosinophils (Bld) [#/Vol] 0.69 10*3/uL High <0.46 [facility] Comment on above: Order Comment: Speci men Type: BLOOD SPECIMENOrdering Facility: [facility] Address: [address] [place] [address] Performed By: #### 5 7021-8 ####[facility]ATORYCLIA [id number] [address] Eosinophils/100 WBC (Bld) 6.5 % Normal [facility] Comment on above: Order Comment: Speci men Type: BLOOD SPECIMENOrdering Facility: [facility] Address: [address] [place] [address] Performed By: #### 5 7021-8 ####[facility]ORATORYCLIA [id number] [address] Erythrocyte distribution width (RBC) [Ratio] 17.7 % High 11.5-15.0 [facility] Comment on above: Order Comment: Speci men Type: BLOOD SPECIMENOrdering Facility: [facility] Address: [address] [place] [address] Performed By: #### 5 7021-8 ####[facility]ATORYCLIA [id number] [address] Hematocrit (Bld) [Volume fraction] 35.5 % Low 39.0-51.0 [facility] Comment on above: Order Comment: Speci men Type: BLOOD SPECIMENOrdering Facility: [facility] Address: [address] [place] [address] Performed By: #### 5 7021-8 ####[facility]ATORYCLIA [id number] [address] [place] Hemoglobin (Bld) [Mass/Vol] 10.5 g/dL Low 13.0-17.0 [facility] Comment on above: Order Comment: Speci men Type: BLOOD SPECIMENOrdering Facility: [facility] Address: [address] [place] [address] Performed By: #### 5 7021-8 ####[facility]ATORYCLIA [id number] [address] [place] Immature granulocytes (Bld) [#/Vol] 0.04 10*3/uL Normal <0.10 [facility] Comment on above: Order Comment: Speci men Type: BLOOD SPECIMENOrdering Facility: [facility] Address: [address] [place] [address] Performed By: #### 5 7021-8 ####[facility]ATORYCLIA [id number] [address] [place] Immature granulocytes/100 WBC (Bld) 0.4 % Normal [facility] Comment on above: Order Comment: Speci men Type: BLOOD SPECIMENOrdering Facility: [facility] Address: [address] [place] [address] Performed By: #### 5 7021-8 ####[facility]ATORYCLIA [id number] [address] [place] Lymphocytes (Bld) [#/Vol] 2.04 10*3/uL Normal 1.00-4.00 [facility] Comment on above: Order Comment: Speci men Type: BLOOD SPECIMENOrdering Facility: [facility] Address: [address] [place] [address] Performed By: #### 5 7021-8 ####[facility]ATORYCLIA [id number] [address] Lymphocytes/100 WBC (Bld) 19.3 % Normal [facility] Comment on above: Order Comment: Speci men Type: BLOOD SPECIMENOrdering Facility: [facility] Address: [address] [place] [address] Performed By: #### 5 7021-8 ####[facility]ATORYCLIA [id number] [place] [address] [place] MCH (RBC) [Entitic mass] 29.7 pg Normal 26.0-34.0 [facility] Comment on above: Order Comment: Speci men Type: BLOOD SPECIMENOrdering Facility: [facility] Address: [address] [place] [address] Performed By: #### 5 7021-8 ####[facility]ORYCLIA [id number] [address] [place] MCHC (RBC) [Mass/Vol] 29.6 g/dL Low 30.5-36.0 [facility] Comment on above: Order Comment: Speci men Type: BLOOD SPECIMENOrdering Facility: [facility] Address: [address] [place] [address] Performed By: #### 5 7021-8 ####[facility]ORATORYCLIA [id number] [address] [place] MCV (RBC) [Entitic vol] 100.3 fL High 80.0-100.[address] [facility] Comment on above: Order Comment: Speci men Type: BLOOD SPECIMENOrdering Facility: [facility] Address: [address] [place] [address] Performed By: #### 5 7021-8 ####[facility]ATORYCLIA [id number] [address] [place] Monocytes (Bld) [#/Vol] 1.03 10*3/uL High <0.87 [facility] Comment on above: Order Comment: Speci men Type: BLOOD SPECIMENOrdering Facility: [facility] Address: [address] [place] [address] Performed By: #### 5 7021-8 ####[facility]ATORYCLIA [id number] [address] [place] Monocytes/100 WBC (Bld) 9.8 % Normal A [facility] Comment on above: Order Comment: Speci men Type: BLOOD SPECIMENOrdering Facility: [facility] Address: [address] [place] [address] Performed By: #### 5 7021-8 ####[facility]ATORYCLIA [id number] [address] [place] Neutrophils (Bld) [#/Vol] 6.62 10*3/uL Normal 1.45-7.50 [facility] Comment on above: Order Comment: Speci men Type: BLOOD SPECIMENOrdering Facility: [facility] Address: [address] [place] [address] Performed By: #### 5 7021-8 ####[facility]ATORYCLIA [id number] [address] Neutrophils/100 WBC (Bld) 62.8 % Normal [facility] Comment on above: Order Comment: Speci men Type: BLOOD SPECIMENOrdering Facility: [facility] Address: [address] [place] [address] Performed By: #### 5 7021-8 ####[facility]ATORYCLIA [id number] [address] [place] Nucleated RBC (Bld) [#/Vol] 10*3/uL Normal <0.01 [facility] Comment on above: Order Comment: Speci men Type: BLOOD SPECIMENOrdering Facility: [facility] Address: [address] [place] [address] Performed By: #### 5 7021-8 ####[facility]ATORYCLIA [id number] [address] Nucleated RBC/100 WBC (Bld) [Ratio] 0.0 /100 WBC Normal [facility] Comment on above: Order Comment: Speci men Type: BLOOD SPECIMENOrdering Facility: [facility] Address: [address] [place] [address] Performed By: #### 5 7021-8 ####[facility]ATORYCLIA [id number] [address] [place] Platelet mean volume (Bld) [Entitic vol] 9.7 fL Normal 9.0-12.7 [facility] Comment on above: Order Comment: Speci men Type: BLOOD SPECIMENOrdering Facility: [facility] Address: [address] [place] [address] Performed By: #### 5 7021-8 ####[facility]ATORYCLIA [id number] [address] [place] Platelets (Bld) [#/Vol] 240 10*3/uL Normal 150-400 [facility] Comment on above: Order Comment: Speci men Type: BLOOD SPECIMENOrdering Facility: [facility] Address: [address] [place] [address] Performed By: #### 5 7021-8 ####[facility]ATORYCLIA [id number] [address] OF [facility] RBC (Bld) [#/Vol] 3.54 10*6/uL Low 4.20-6.00 [facility] Comment on above: Order Comment: Speci men Type: BLOOD SPECIMENOrdering Facility: [facility] Address: [address] [place] [address] Performed By: #### 5 7021-8 ####[facility]ORYCLIA [id number] [address] OF [facility] WBC (Bld) [#/Vol] 10.55 10*3/uL Normal 3.70-11.00 [facility] Comment on above: Order Comment: Speci men Type: BLOOD SPECIMENOrdering Facility: [facility] Address: [address] [place] [address] Performed By: #### 5 7021-8 ####[facility]ORYCLIA [id number] [address] CONSULT PROGon 06-30-2025 CONSULT PROG Normal [facility] CONSULT PROG Normal [facility] Comprehensive metabolic 2000 panelon 06-30-2025 Albumin [Mass/Vol] 3.1 g/dL Low 3.9-4.9 [facility] Comment on above: Order Comment: Speci men Type: BLOOD SPECIMENOrdering Facility: [facility] Address: [address] [place] [address] Performed By: #### 2 4323-8 ####[facility] LABORATORYCLIA [id number] [address] ALP [Catalytic activity/Vol] 488 U/L High 38-113 [facility] Comment on above: Order Comment: Speci men Type: BLOOD SPECIMENOrdering Facility: [facility] Address: [address] [place] [address] Performed By: #### 2 4323-8 ####[facility] LABORATORYCLIA [id number] [place] [address] [place] [place] ALT With P-5'-P [Catalytic activity/Vol] 14 U/L Normal 10-54 [facility] Comment on above: Order Comment: Speci men Type: BLOOD SPECIMENOrdering Facility: [facility] Address: [address] [place] [address] Performed By: #### 2 4323-8 ####[facility] LABORATORYCLIA [id number] [place] [address] [place] Anion gap [Moles/Vol] 18 mmol/L High 8-15 [facility] Comment on above: Order Comment: Speci men Type: BLOOD SPECIMENOrdering Facility: [facility] Address: [address] [place] [address] Performed By: #### 2 4323-8 ####[facility] LABORATORYCLIA [id number] [address] STATES OF [facility] AST With P-5'-P [Catalytic activity/Vol] 32 U/L Normal 14-40 [facility] Comment on above: Order Comment: Speci men Type: BLOOD SPECIMENOrdering Facility: [facility] Address: [address] [place] [address] Performed By: #### 2 4323-8 ####[facility] LABORATORYCLIA [id number] [address] STATES [place] Bilirubin [Mass/Vol] 0.7 mg/dL Normal 0.2-1.3 [facility] Comment on above: Order Comment: Speci men Type: BLOOD SPECIMENOrdering Facility: [facility] Address: [address] [place] [address] Performed By: #### 2 4323-8 ####[facility]ORATORYCLIA [id number] [address] [place] Calcium [Mass/Vol] 9.0 mg/dL Normal 8.5-10.2 [facility] Comment on above: Order Comment: Speci men Type: BLOOD SPECIMENOrdering Facility: [facility] Address: [address] [place] [address] Performed By: #### 2 4323-8 ####[facility]ORATORYCLIA [id number] [place] [address] [place] Chloride [Moles/Vol] 94 mmol/L Low 98-107 [facility] Comment on above: Order Comment: Speci men Type: BLOOD SPECIMENOrdering Facility: [facility] Address: [address] [place] [address] Performed By: #### 2 4323-8 ####[facility] LABORATORYCLIA [id number] [address] STATES OF [place] CO2 [Moles/Vol] 23 mmol/L Normal 22-30 [facility] Comment on above: Order Comment: Speci men Type: BLOOD SPECIMENOrdering Facility: [facility] Address: [address] [place] [address] Performed By: #### 2 4323-8 ####[facility] LABORATORYCLIA [id number] [address] STATES [place] Creatinine [Mass/Vol] 7.79 mg/dL High 0.73-1.22 [facility] Comment on above: Order Comment: Speci men Type: BLOOD SPECIMENOrdering Facility: [facility] Address: [address] [place] [address] Performed By: #### 2 4323-8 ####[facility]ORATORYCLIA [id number] [place] [address] [place] eGFRcr SerPlBld CKD-EPI 2020 7 mL/min/1.73m??? Low >=60 [facility] Comment on above: Order Comment: Speci men Type: BLOOD SPECIMENOrdering Facility: [facility] Address: [address] [place] [address] Result Comment: Faviola mated Glomerular Filtration Rate [...] actual GFR. Performed By: #### 2 4323-8 ####[facility]ORATORYCLIA [id number] [place] [address] [place] Glucose [Mass/Vol] 91 mg/dL Normal 74-99 [facility] Comment on above: Order Comment: Zach schwartz Type: BLOOD SPECIMENOrdering Facility: [facility] Address: [address] [place] [address] Result Comment: The [place] [employer] (ADA) provides guidance for cutoff [...] Standards of Medical Care in Diabetes 2016, [place] [employer]. Diabetes Care. 2016.39(Suppl 1). Performed By: #### 2 4323-8 ####[facility]ORATORYCLIA [id number] [place] [address] [place] Potassium [Moles/Vol] 5.6 mmol/L High 3.7-5.1 [facility] Comment on above: Order Comment: Zach schwartz Type: BLOOD SPECIMENOrdering Facility: [facility] Address: [address] [place] [address] Performed By: #### 2 4323-8 ####[facility]ORATORYCLIA [id number] [place] [id number] [place] Protein [Mass/Vol] 6.9 g/dL Normal 6.3-8.0 [facility] Comment on above: Order Comment: Zach schwartz Type: BLOOD SPECIMENOrdering Facility: [facility] Address: [address] [place] [address] Performed By: #### 2 4323-8 ####[facility]ORATORYCLIA [id number] [address] STATES [place] Sodium [Moles/Vol] 135 mmol/L Low 136-144 [facility] Comment on above: Order Comment: Zach schwartz Type: BLOOD SPECIMENOrdering Facility: [facility] Address: [address] [place] [address] Performed By: #### 2 4323-8 ####[facility]ORATORYCLIA [id number] [address] STATES OF [facility] Urea nitrogen [Mass/Vol] 53 mg/dL High 9-24 [facility] Comment on above: Order Comment: Speci men Type: BLOOD SPECIMENOrdering Facility: [facility] Address: [address] [place] [address] Performed By: #### 2 4323-8 ####[facility]ORATORYCLIA [id number] [address] STATES [place] NURSING PROGon 06-30-2025 NURSING PROG Normal [facility] NURSING PROG Normal [facility] PT panel Coag (PPP)on 2024 INR Coag (PPP) [Relative time] 3.1 {INR} High 0.9-1.3 [facility] Comment on above: Order Comment: Zach schwartz Type: BLOOD SPECIMENOrdering Facility: [facility] Address: [address] [place] [address] Result Comment: Zina min K Antagonist (VKA) Therapeutic Range: INR 2 to 3 (Target INR of 2.5)Note: For patients treated with VKA drugs, such as warfarin, the [place] [employer] 2012 Guideline recommends [...] al. Chest 2012, 141:7S-47SNishimura RA, et al. [facility] 2017, 70: 252-289 Performed By: #### 3 4528-0 ####[facility] LABORATORYCLIA [id number] [place] [address] [place] PT Coag (PPP) [Time] 31.2 s High 9.7-13.0 [facility] Comment on above: Order Comment: Speci men Type: BLOOD SPECIMENOrdering Facility: [facility] Address: [address] [place] [address] Performed By: #### 3 4528-0 ####[facility]ORATORYCLIA [id number] [address] STATES [place] ANES PRE-OPon 06-29-2025 ANES PRE-OP Normal [facility] CASE MANAGEMon 06-29-2025 CASE MANAGEM Normal [facility] CBC W Auto Differential pane l (Bld)on 06-29-2025 Basophils (Bld) [#/Vol] 0.07 10*3/uL Normal <0.11 [facility] Comment on above: Order Comment: Speci men Type: BLOOD SPECIMENOrdering Facility: [facility] Address: [address] [place] [address] Performed By: #### 5 7021-8 ####[facility]ORATORYCLIA [id number] [address] [place] Basophils/100 WBC (Bld) 0.7 % Normal A [facility] Comment on above: Order Comment: Speci men Type: BLOOD SPECIMENOrdering Facility: [facility] Address: [address] [place] [address] Performed By: #### 5 7021-8 ####[facility]ORATORYCLIA [id number] [address] [place] Differential cell count method Nom (Bld) Auto Normal [facility] Comment on above: Order Comment: Speci men Type: BLOOD SPECIMENOrdering Facility: [facility] Address: [address] [place] [address] Performed By: #### 5 7021-8 ####[facility]ATORYCLIA [id number] [address] [place] Eosinophils (Bld) [#/Vol] 0.93 10*3/uL High <0.46 [facility] Comment on above: Order Comment: Speci men Type: BLOOD SPECIMENOrdering Facility: [facility] Address: [address] [place] [address] Performed By: #### 5 7021-8 ####[facility]ORATORYCLIA [id number] [address] Eosinophils/100 WBC (Bld) 9.2 % Normal [facility] Comment on above: Order Comment: Speci men Type: BLOOD SPECIMENOrdering Facility: [facility] Address: [address] [place] [address] Performed By: #### 5 7021-8 ####[facility]ORATORYCLIA [id number] [address] Erythrocyte distribution width (RBC) [Ratio] 18.3 % High 11.5-15.0 [facility] Comment on above: Order Comment: Speci men Type: BLOOD SPECIMENOrdering Facility: [facility] Address: [address] [place] [address] Performed By: #### 5 7021-8 ####[facility]ORATORYCLIA [id number] [address] [place] Hematocrit (Bld) [Volume fraction] 34.0 % Low 39.0-51.0 [facility] Comment on above: Order Comment: Speci men Type: BLOOD SPECIMENOrdering Facility: [facility] Address: [address] [place] [address] Performed By: #### 5 7021-8 ####[facility]ORATORYCLIA [id number] [address] OF [place] Hemoglobin (Bld) [Mass/Vol] 10.9 g/dL Low 13.0-17.0 [facility] Comment on above: Order Comment: Speci men Type: BLOOD SPECIMENOrdering Facility: [facility] Address: [address] [place] [address] Performed By: #### 5 7021-8 ####[facility]ORATORYCLIA [id number] [address] [place] Immature granulocytes (Bld) [#/Vol] 0.05 10*3/uL Normal <0.10 [facility] Comment on above: Order Comment: Speci men Type: BLOOD SPECIMENOrdering Facility: [facility] Address: [address] [place] [address] Performed By: #### 5 7021-8 ####[facility]ORATORYCLIA [id number] [address] Immature granulocytes/100 WBC (Bld) 0.5 % Normal [facility] Comment on above: Order Comment: Speci men Type: BLOOD SPECIMENOrdering Facility: [facility] Address: [address] [place] [address] Performed By: #### 5 7021-8 ####[facility]ORATORYCLIA [id number] [address] [place] Lymphocytes (Bld) [#/Vol] 2.11 10*3/uL Normal 1.00-4.00 [facility] Comment on above: Order Comment: Speci men Type: BLOOD SPECIMENOrdering Facility: [facility] Address: [address] [place] [address] Performed By: #### 5 7021-8 ####[facility]ORATORYCLIA [id number] [address] [place] Lymphocytes/100 WBC (Bld) 20.9 % Normal [facility] Comment on above: Order Comment: Speci men Type: BLOOD SPECIMENOrdering Facility: [facility] Address: [address] [place] [address] Performed By: #### 5 7021-8 ####[facility]ORATORYCLIA [id number] [address] [place] MCH (RBC) [Entitic mass] 32.2 pg Normal 26.0-34.0 [facility] Comment on above: Order Comment: Speci men Type: BLOOD SPECIMENOrdering Facility: [facility] Address: [address] [place] [address] Performed By: #### 5 7021-8 ####[facility] LABORATORYCLIA [id number] [address] OF [facility] MCHC (RBC) [Mass/Vol] 32.1 g/dL Normal 30.5-36.0 [facility] Comment on above: Order Comment: Speci men Type: BLOOD SPECIMENOrdering Facility: [facility] Address: [address] [place] [address] Performed By: #### 5 7021-8 ####[facility]ORATORYCLIA [id number] [address] MCV (RBC) [Entitic vol] 100.3 fL High 80.0-100.0 [facility] Comment on above: Order Comment: Speci men Type: BLOOD SPECIMENOrdering Facility: [facility] Address: [address] [place] [address] Performed By: #### 5 7021-8 ####[facility]ORATORYCLIA [id number] [address] Monocytes (Bld) [#/Vol] 0.75 10*3/uL Normal <0.87 [facility] Comment on above: Order Comment: Speci men Type: BLOOD SPECIMENOrdering Facility: [facility] Address: [address] [place] [address] Performed By: #### 5 7021-8 ####[facility]ORATORYCLIA [id number] [address] Monocytes/100 WBC (Bld) 7.4 % Normal A [facility] Comment on above: Order Comment: Speci men Type: BLOOD SPECIMENOrdering Facility: [facility] Address: [address] [place] [address] Performed By: #### 5 7021-8 ####[facility]ORATORYCLIA [id number] [place] [address] [place] Neutrophils (Bld) [#/Vol] 6.20 10*3/uL Normal 1.45-7.50 [facility] Comment on above: Order Comment: Speci men Type: BLOOD SPECIMENOrdering Facility: [facility] Address: [address] [place] [address] Performed By: #### 5 7021-8 ####[facility] LABORATORYCLIA [id number] [address] [place] Neutrophils/100 WBC (Bld) 61.3 % Normal [facility] Comment on above: Order Comment: Speci men Type: BLOOD SPECIMENOrdering Facility: [facility] Address: [address] [place] [address] Performed By: #### 5 7021-8 ####[facility]ORATORYCLIA [id number] [address] [place] Nucleated RBC (Bld) [#/Vol] 10*3/uL Normal <0.01 [facility] Comment on above: Order Comment: Speci men Type: BLOOD SPECIMENOrdering Facility: [facility] Address: [address] [place] [address] Performed By: #### 5 7021-8 ####[facility] LABORATORYCLIA [id number] [address] [place] Nucleated RBC/100 WBC (Bld) [Ratio] 0.0 /100 WBC Normal [facility] Comment on above: Order Comment: Speci men Type: BLOOD SPECIMENOrdering Facility: [facility] Address: [address] [place] [address] Performed By: #### 5 7021-8 ####[facility]ORATORYCLIA [id number] [address] OF [place] Platelet mean volume (Bld) [Entitic vol] 10.1 fL Normal 9.0-12.7 [facility] Comment on above: Order Comment: Speci men Type: BLOOD SPECIMENOrdering Facility: [facility] Address: [address] [place] [address] Performed By: #### 5 7021-8 ####[facility] LABORATORYCLIA [id number] [address] OF [facility] Platelets (Bld) [#/Vol] 218 10*3/uL Normal 150-400 [facility] Comment on above: Order Comment: Speci men Type: BLOOD SPECIMENOrdering Facility: [facility] Address: [address] [place] [address] Performed By: #### 5 7021-8 ####[facility]ORATORYCLIA [id number] [address] OF [facility] RBC (Bld) [#/Vol] 3.39 10*6/uL Low 4.20-6.00 [facility] Comment on above: Order Comment: Speci men Type: BLOOD SPECIMENOrdering Facility: [facility] Address: [address] [place] [address] Performed By: #### 5 7021-8 ####[facility]ORATORYCLIA [id number] [address] [place] WBC (Bld) [#/Vol] 10.11 10*3/uL Normal 3.70-11.00 [facility] Comment on above: Order Comment: Speci men Type: BLOOD SPECIMENOrdering Facility: [facility] Address: [address] [place] [address] Performed By: #### 5 7021-8 ####[facility]ORATORYCLIA [id number] [address] CONSULT PROGon 06-29-2025 CONSULT PROG Normal [facility] CONSULT PROG Normal [facility] CONSULT PROG Normal [facility] CRP SerPl-mCncon 06-29-2025 CRP [Mass/Vol] 8.3 mg/dL High <0.9 [facility] Comment on above: Order Comment: Speci men Type: BLOOD SPECIMENOrdering Facility: [facility] Address: [address] [place] [address] Performed By: #### 1 988-5, 22778-5 ####[facility]ORATORYCLIA [id number] [address] OF [facility] CT BRAIN WO IVCONon 06-29-[address] BRAIN WO IVCON Normal [facility] Comprehensive metabolic 2000 panelon 06-29-2025 Albumin [Mass/Vol] 2.9 g/dL Low 3.9-4.9 [facility] Comment on above: Order Comment: Speci men Type: BLOOD SPECIMENOrdering Facility: [facility] Address: [address] [place] [address] Performed By: #### 1 988-5, 45765-0 ####[facility]ORATORYCLIA [id number] [address] [place] ALP [Catalytic activity/Vol] 479 U/L High 38-113 [facility] Comment on above: Order Comment: Speci men Type: BLOOD SPECIMENOrdering Facility: [facility] Address: [address] [place] [address] Performed By: #### 1 988-5, 92065-5 ####[facility]ATORYCLIA [id number] [address] OF [facility] ALT With P-5'-P [Catalytic activity/Vol] 15 U/L Normal 10-54 [facility] Comment on above: Order Comment: Speci men Type: BLOOD SPECIMENOrdering Facility: [facility] Address: [address] [place] [address] Performed By: #### 1 988-5, 70553-9 ####[facility]ORATORYCLIA [id number] [address] STATES OF [facility] Anion gap [Moles/Vol] 15 mmol/L Normal 8-15 [facility] Comment on above: Order Comment: Speci men Type: BLOOD SPECIMENOrdering Facility: [facility] Address: [address] [place] [address] Performed By: #### 1 988-5, 40438-9 ####[facility]ORATORYCLIA [id number] [place] [address] [place] AST With P-5'-P [Catalytic activity/Vol] 36 U/L Normal 14-40 [facility] Comment on above: Order Comment: Speci men Type: BLOOD SPECIMENOrdering Facility: [facility] Address: [address] [place] [address] Performed By: #### 1 988-5, 77897-3 ####[facility]ATORYCLIA [id number] [place] [address] [place] Bilirubin [Mass/Vol] 0.7 mg/dL Normal 0.2-1.3 [facility] Comment on above: Order Comment: Speci men Type: BLOOD SPECIMENOrdering Facility: [facility] Address: [address] [place] [address] Performed By: #### 1 988-5, 06418-9 ####[facility]ORATORYCLIA [id number] [place] [address] [place] Calcium [Mass/Vol] 9.2 mg/dL Normal 8.5-10.2 [facility] Comment on above: Order Comment: Speci men Type: BLOOD SPECIMENOrdering Facility: [facility] Address: [address] [place] [address] Performed By: #### 1 988-5, 30809-9 ####[facility]ATORYCLIA [id number] [place] [address] [place] Chloride [Moles/Vol] 98 mmol/L Normal 98-107 [facility] Comment on above: Order Comment: Speci men Type: BLOOD SPECIMENOrdering Facility: [facility] Address: [address] [place] [address] Performed By: #### 1 988-5, 06007-8 ####[facility]ORATORYCLIA [id number] [place] [address] [place] CO2 [Moles/Vol] 24 mmol/L Normal 22-30 [facility] Comment on above: Order Comment: Speci men Type: BLOOD SPECIMENOrdering Facility: [facility] Address: [address] [place] [id number] Performed By: #### 1 988-5, 43612-0 ####[facility]ITALCLIA [id number] [place] [id number] [place] [facility] Creatinine [Mass/Vol] 6.40 mg/dL High 0.73-1.22 [facility] Comment on above: Order Comment: Speci men Type: BLOOD SPECIMENOrdering Facility: [facility] Address: [address] [place] [address] Performed By: #### 1 988-5, 30986-2 ####[facility]ITALCLIA [id number] [place] [id number] [facility] eGFRcr SerPlBld CKD-EPI 2020 8 mL/min/1.73m??? Low >=60 [facility] Comment on above: Order Comment: Speci men Type: BLOOD SPECIMENOrdering Facility: [facility] Address: [address] [place] [address] Result Comment: Faviola mated Glomerular Filtration Rate [...] actual GFR. Performed By: #### 1 988-5, 94327-9 ####[facility]ORATORYCLIA [id number] [place] [id number] [place] Glucose [Mass/Vol] 98 mg/dL Normal 74-99 [facility] Comment on above: Order Comment: Speci men Type: BLOOD SPECIMENOrdering Facility: [facility] Address: [address] [place] [address] Result Comment: The [place] [employer] (ADA) provides guidance for cutoff [...] Standards of Medical Care in Diabetes 2016, [place] [employer]. Diabetes Care. 2016.39(Suppl 1). Performed By: #### 1 988-5, 15287-1 ####[facility]ORATORYCLIA [id number] [place] [address] [place] Potassium [Moles/Vol] 4.7 mmol/L Normal 3.7-5.1 [facility] Comment on above: Order Comment: Camdeni jordan Type: BLOOD SPECIMENOrdering Facility: [facility] Address: [address] [place] [address] Performed By: #### 1 988-5, 11053-2 ####[facility]ORATORYCLIA [id number] [place] [address] [place] Protein [Mass/Vol] 6.8 g/dL Normal 6.3-8.0 [facility] Comment on above: Order Comment: Camdeni jordan Type: BLOOD SPECIMENOrdering Facility: [facility] Address: [address] [place] [address] Performed By: #### 1 988-5, 55529-4 ####[facility]ORATORYCLIA [id number] [place] [address] [place] Sodium [Moles/Vol] 137 mmol/L Normal 136-144 [facility] Comment on above: Order Comment: Speci men Type: BLOOD SPECIMENOrdering Facility: [facility] Address: [address] [place] [address] Performed By: #### 1 988-5, 46160-3 ####[facility]ORATORYCLIA [id number] [address] [place] Urea nitrogen [Mass/Vol] 39 mg/dL High 9-24 [facility] Comment on above: Order Comment: Speci men Type: BLOOD SPECIMENOrdering Facility: [facility] Address: [address] [place] [address] Performed By: #### 1 988-5, 85671-0 ####[facility]ORATORYCLIA [id number] [address] OPERATIVE NOon 06-29-2025 OPERATIVE NO Normal [facility] PT panel Coag (PPP)on 2024 INR Coag (PPP) [Relative time] 2.4 {INR} High 0.9-1.3 [facility] Comment on above: Order Comment: Speci men Type: BLOOD SPECIMENOrdering Facility: [facility] Address: [address] [place] [address] Result Comment: Zina min K Antagonist (VKA) Therapeutic Range: INR 2 to 3 (Target INR of 2.5)Note: For patients treated with VKA drugs, such as warfarin, the [place] [employer] 2012 Guideline recommends [...] al. Chest 2012, 141:7S-47SNishimura RA, et al. [facility] 2017, 70: 252-289 Performed By: #### 3 4528-0 ####[facility] LABORATORYCLIA [id number] [address] [place] PT Coag (PPP) [Time] 24.0 s High 9.7-13.0 [facility] Comment on above: Order Comment: Speci men Type: BLOOD SPECIMENOrdering Facility: [facility] Address: [address] [place] [address] Performed By: #### 3 4528-0 ####[facility] LABORATORYCLIA [id number] [place] [address] [place] THERAPY NTon 06-29-2025 THERAPY NT Normal [facility] XR LUMBAR 2V AP/LATon 2024 XR LUMBAR 2V AP/LAT Normal [facility] CBC W Auto Differential pane l (Bld)on 06-28-2025 Basophils (Bld) [#/Vol] 0.06 10*3/uL Normal <0.11 [facility] Comment on above: Order Comment: Speci men Type: BLOOD SPECIMENOrdering Facility: [facility] Address: [address] [place] [address] Performed By: #### 5 7021-8 ####[facility] LABORATORYCLIA [id number] [address] [place] [facility] Basophils/100 WBC (Bld) 0.6 % Normal A [facility] Comment on above: Order Comment: Speci men Type: BLOOD SPECIMENOrdering Facility: [facility] Address: [address] [place] [address] Performed By: #### 5 7021-8 ####[facility] LABORATORYCLIA [id number] [address] [place] [facility] Differential cell count method Nom (Bld) Auto Normal [facility] Comment on above: Order Comment: Speci men Type: BLOOD SPECIMENOrdering Facility: [facility] Address: [address] [place] [address] Performed By: #### 5 7021-8 ####[facility] LABORATORYCLIA [id number] [place] [address] [place] Eosinophils (Bld) [#/Vol] 0.73 10*3/uL High <0.46 [facility] Comment on above: Order Comment: Speci men Type: BLOOD SPECIMENOrdering Facility: [facility] Address: [address] [place] [address] Performed By: #### 5 7021-8 ####[facility]ORATORYCLIA [id number] [address] [place] Eosinophils/100 WBC (Bld) 7.6 % Normal [facility] Comment on above: Order Comment: Speci men Type: BLOOD SPECIMENOrdering Facility: [facility] Address: [address] [place] [address] Performed By: #### 5 7021-8 ####[facility]ORATORYCLIA [id number] [address] [place] Erythrocyte distribution width (RBC) [Ratio] 18.4 % High 11.5-15.0 [facility] Comment on above: Order Comment: Speci men Type: BLOOD SPECIMENOrdering Facility: [facility] Address: [address] [place] [address] Performed By: #### 5 7021-8 ####[facility]ORATORYCLIA [id number] [address] [place] Hematocrit (Bld) [Volume fraction] 33.5 % Low 39.0-51.0 [facility] Comment on above: Order Comment: Speci men Type: BLOOD SPECIMENOrdering Facility: [facility] Address: [address] [place] [address] Performed By: #### 5 7021-8 ####[facility]ORATORYCLIA [id number] [address] [place] Hemoglobin (Bld) [Mass/Vol] 10.0 g/dL Low 13.0-17.0 [facility] Comment on above: Order Comment: Speci men Type: BLOOD SPECIMENOrdering Facility: [facility] Address: [address] [place] [address] Performed By: #### 5 7021-8 ####[facility]ORATORYCLIA [id number] [address] [place] Immature granulocytes (Bld) [#/Vol] 0.03 10*3/uL Normal <0.10 [facility] Comment on above: Order Comment: Speci men Type: BLOOD SPECIMENOrdering Facility: [facility] Address: [address] [place] [address] Performed By: #### 5 7021-8 ####[facility]ORATORYCLIA [id number] [address] [place] Immature granulocytes/100 WBC (Bld) 0.3 % Normal [facility] Comment on above: Order Comment: Speci men Type: BLOOD SPECIMENOrdering Facility: [facility] Address: [address] [place] [address] Performed By: #### 5 7021-8 ####[facility]ORATORYCLIA [id number] [place] [address] [place] Lymphocytes (Bld) [#/Vol] 1.44 10*3/uL Normal 1.00-4.00 [facility] Comment on above: Order Comment: Speci men Type: BLOOD SPECIMENOrdering Facility: [facility] Address: [address] [place] [address] Performed By: #### 5 7021-8 ####[facility] LABORATORYCLIA [id number] [address] Lymphocytes/100 WBC (Bld) 14.9 % Normal [facility] Comment on above: Order Comment: Speci men Type: BLOOD SPECIMENOrdering Facility: [facility] Address: [address] [place] [address] Performed By: #### 5 7021-8 ####[facility] LABORATORYCLIA [id number] [address] [place] MCH (RBC) [Entitic mass] 30.0 pg Normal 26.0-34.0 [facility] Comment on above: Order Comment: Speci men Type: BLOOD SPECIMENOrdering Facility: [facility] Address: [address] [place] [address] Performed By: #### 5 7021-8 ####[facility] LABORATORYCLIA [id number] [address] [place] MCHC (RBC) [Mass/Vol] 29.9 g/dL Low 30.5-36.0 [facility] Comment on above: Order Comment: Speci men Type: BLOOD SPECIMENOrdering Facility: [facility] Address: [address] [place] [address] Performed By: #### 5 7021-8 ####[facility]ORATORYCLIA [id number] [address] [place] MCV (RBC) [Entitic vol] 100.6 fL High 80.0-100.[address] [facility] Comment on above: Order Comment: Speci men Type: BLOOD SPECIMENOrdering Facility: [facility] Address: [address] [place] [address] Performed By: #### 5 7021-8 ####[facility]ORATORYCLIA [id number] [address] [place] Monocytes (Bld) [#/Vol] 0.86 10*3/uL Normal <0.87 [facility] Comment on above: Order Comment: Speci men Type: BLOOD SPECIMENOrdering Facility: [facility] Address: [address] [place] [address] Performed By: #### 5 7021-8 ####[facility]ORATORYCLIA [id number] [address] [place] Monocytes/100 WBC (Bld) 8.9 % Normal A [facility] Comment on above: Order Comment: Speci men Type: BLOOD SPECIMENOrdering Facility: [facility] Address: [address] [place] [address] Performed By: #### 5 7021-8 ####[facility]ORATORYCLIA [id number] [address] [place] Neutrophils (Bld) [#/Vol] 6.53 10*3/uL Normal 1.45-7.50 [facility] Comment on above: Order Comment: Speci men Type: BLOOD SPECIMENOrdering Facility: [facility] Address: [address] [place] [address] Performed By: #### 5 7021-8 ####[facility]ATORYCLIA [id number] [address] [place] Neutrophils/100 WBC (Bld) 67.7 % Normal [facility] Comment on above: Order Comment: Speci men Type: BLOOD SPECIMENOrdering Facility: [facility] Address: [address] [place] [address] Performed By: #### 5 7021-8 ####[facility] LABORATORYCLIA [id number] [address] [place] [facility] Nucleated RBC (Bld) [#/Vol] 10*3/uL Normal <0.01 [facility] Comment on above: Order Comment: Speci men Type: BLOOD SPECIMENOrdering Facility: [facility] Address: [address] [place] [address] Performed By: #### 5 7021-8 ####[facility] LABORATORYCLIA [id number] [address] Nucleated RBC/100 WBC (Bld) [Ratio] 0.0 /100 WBC Normal [facility] Comment on above: Order Comment: Speci men Type: BLOOD SPECIMENOrdering Facility: [facility] Address: [address] [place] [address] Performed By: #### 5 7021-8 ####[facility]ORATORYCLIA [id number] [place] [address] [place] Platelet mean volume (Bld) [Entitic vol] 9.1 fL Normal 9.0-12.7 [facility] Comment on above: Order Comment: Speci men Type: BLOOD SPECIMENOrdering Facility: [facility] Address: [address] [place] [address] Performed By: #### 5 7021-8 ####[facility]ORATORYCLIA [id number] [place] [address] [place] Platelets (Bld) [#/Vol] 209 10*3/uL Normal 150-400 [facility] Comment on above: Order Comment: Speci men Type: BLOOD SPECIMENOrdering Facility: [facility] Address: [address] [place] [address] Performed By: #### 5 7021-8 ####[facility]ORATORYCLIA [id number] [place] [address] [place] RBC (Bld) [#/Vol] 3.33 10*6/uL Low 4.20-6.00 [facility] Comment on above: Order Comment: Speci men Type: BLOOD SPECIMENOrdering Facility: [facility] Address: [address] [place] [address] Performed By: #### 5 7021-8 ####[facility]ORATORYCLIA [id number] [place] [address] [place] WBC (Bld) [#/Vol] 9.65 10*3/uL Normal 3.70-11.00 [facility] Comment on above: Order Comment: Speci men Type: BLOOD SPECIMENOrdering Facility: [facility] Address: [address] [place] [address] Performed By: #### 5 7021-8 ####[facility] LABORATORYCLIA [id number] [address] [place] CONSULT PROGon 06-28-2025 CONSULT PROG Normal [facility] CONSULT PROG Normal [facility] Comprehensive metabolic 2000 panelon 06-28-2025 Albumin [Mass/Vol] 2.9 g/dL Low 3.9-4.9 [facility] Comment on above: Order Comment: Speci men Type: BLOOD SPECIMENOrdering Facility: [facility] Address: [address] [place] [address] Performed By: #### 2 4323-8 ####[facility]ORATORYCLIA [id number] [place] [address] [place] ALP [Catalytic activity/Vol] 424 U/L High 38-113 [facility] Comment on above: Order Comment: Speci men Type: BLOOD SPECIMENOrdering Facility: [facility] Address: [address] [place] [address] Performed By: #### 2 4323-8 ####[facility]ORATORYCLIA [id number] [place] [address] [place] ALT With P-5'-P [Catalytic activity/Vol] 12 U/L Normal 10-54 [facility] Comment on above: Order Comment: Speci men Type: BLOOD SPECIMENOrdering Facility: [facility] Address: [address] [place] [address] Performed By: #### 2 4323-8 ####[facility]ORATORYCLIA [id number] [place] [address] [place] Anion gap [Moles/Vol] 13 mmol/L Normal 8-15 [facility] Comment on above: Order Comment: Speci men Type: BLOOD SPECIMENOrdering Facility: [facility] Address: [address] [place] [address] Performed By: #### 2 4323-8 ####[facility]ORATORYCLIA [id number] [place] [address] [place] AST With P-5'-P [Catalytic activity/Vol] 30 U/L Normal 14-40 [facility] Comment on above: Order Comment: Speci men Type: BLOOD SPECIMENOrdering Facility: [facility] Address: [address] [place] [address] Performed By: #### 2 4323-8 ####[facility]ORATORYCLIA [id number] [place] [address] [place] Bilirubin [Mass/Vol] 0.7 mg/dL Normal 0.2-1.3 [facility] Comment on above: Order Comment: Speci men Type: BLOOD SPECIMENOrdering Facility: [facility] Address: [address] [place] [address] Performed By: #### 2 4323-8 ####[facility]ORATORYCLIA [id number] [place] [address] [place] Calcium [Mass/Vol] 8.8 mg/dL Normal 8.5-10.2 [facility] Comment on above: Order Comment: Speci men Type: BLOOD SPECIMENOrdering Facility: [facility] Address: [address] [place] [address] Performed By: #### 2 4323-8 ####[facility]ORATORYCLIA [id number] [place] [address] [place] Chloride [Moles/Vol] 97 mmol/L Low 98-107 [facility] Comment on above: Order Comment: Speci men Type: BLOOD SPECIMENOrdering Facility: [facility] Address: [address] [place] [address] Performed By: #### 2 4323-8 ####[facility]ORATORYCLIA [id number] [address] [place] CO2 [Moles/Vol] 26 mmol/L Normal 22-30 [facility] Comment on above: Order Comment: Speci men Type: BLOOD SPECIMENOrdering Facility: [facility] Address: [address] [place] [address] Performed By: #### 2 4323-8 ####[facility]ORATORYCLIA [id number] [address] [place] Creatinine [Mass/Vol] 5.21 mg/dL High 0.73-1.22 [facility] Comment on above: Order Comment: Speci men Type: BLOOD SPECIMENOrdering Facility: [facility] Address: [address] [place] [address] Performed By: #### 2 4323-8 ####[facility] LABORATORYCLIA [id number] [address] eGFRcr SerPlBld CKD-EPI 2020 11 mL/min/1.73m??? Low >=60 [facility] Comment on above: Order Comment: Speci men Type: BLOOD SPECIMENOrdering Facility: [facility] Address: [address] [place] [address] Result Comment: Faviola mated Glomerular Filtration Rate [...] actual GFR. Performed By: #### 2 4323-8 ####[facility]ORATORYCLIA [id number] [address] [place] Glucose [Mass/Vol] 103 mg/dL High 74-99 [facility] Comment on above: Order Comment: Speci men Type: BLOOD SPECIMENOrdering Facility: [facility] Address: [address] [place] [address] Result Comment: The [place] [employer] (ADA) provides guidance for cutoff [...] Standards of Medical Care in Diabetes 2016, [place] [employer]. Diabetes Care. 2016.39(Suppl 1). Performed By: #### 2 4323-8 ####[facility]ORATORYCLIA [id number] [place] [address] [place] Potassium [Moles/Vol] 4.0 mmol/L Normal 3.7-5.1 [facility] Comment on above: Order Comment: Zach jordan Type: BLOOD SPECIMENOrdering Facility: [facility] Address: [address] [place] [address] Performed By: #### 2 4323-8 ####[facility]ORATORYCLIA [id number] [place] [address] [place] Protein [Mass/Vol] 6.3 g/dL Normal 6.3-8.0 [facility] Comment on above: Order Comment: Camdeni men Type: BLOOD SPECIMENOrdering Facility: [facility] Address: [address] [place] [address] Performed By: #### 2 4323-8 ####[facility]ORATORYCLIA [id number] [place] [address] [place] Sodium [Moles/Vol] 136 mmol/L Normal 136-144 [facility] Comment on above: Order Comment: Speci men Type: BLOOD SPECIMENOrdering Facility: [facility] Address: [address] [place] [address] Performed By: #### 2 4323-8 ####[facility] LABORATORYCLIA [id number] [place] [id number] [place] [facility] Urea nitrogen [Mass/Vol] 24 mg/dL Normal 9-24 [facility] Comment on above: Order Comment: Speci men Type: BLOOD SPECIMENOrdering Facility: [facility] Address: [address] [place] [address] Performed By: #### 2 4323-8 ####[facility]ITALCLIA [id number] [place] [id number] [place] [facility] PT panel Coag (PPP)on 2024 INR Coag (PPP) [Relative time] 2.3 {INR} High 0.9-1.3 [facility] Comment on above: Order Comment: Speci men Type: BLOOD SPECIMENOrdering Facility: [facility] Address: [address] [place] [address] Result Comment: Zina min K Antagonist (VKA) Therapeutic Range: INR 2 to 3 (Target INR of 2.5)Note: For patients treated with VKA drugs, such as warfarin, the [place] [employer] 2012 Guideline recommends [...] al. Chest 2012, 141:7S-47SNishimura RA, et al. [facility] 2017, 70: 252-289 Performed By: #### 3 4528-0 ####[facility] LABORATORYCLIA [id number] [place] [id number] [place] PT Coag (PPP) [Time] 23.7 s High 9.7-13.0 [facility] Comment on above: Order Comment: Speci men Type: BLOOD SPECIMENOrdering Facility: [facility] Address: [address] [place] [address] Performed By: #### 3 4528-0 ####[facility] LABORATORYCLIA [id number] [address] Bacteria Bld Culton 06-27-20 Bacteria identified Cx Nom (Bld) CULTURE, BLOOD: No growth 5 days Normal [facility] Comment on above: Performed By: #### 6 00-7 ####[facility]ATORYCLIA [id number] [address] Bacteria identified Cx Nom (Bld) CULTURE, BLOOD: No growth 5 days Normal [facility] Comment on above: Performed By: #### 6 00-7 ####[facility]ATORYCLIA [id number] [address] CBC W Auto Differential pane l (Bld)on 06-27-2025 Basophils (Bld) [#/Vol] 0.07 10*3/uL Normal <0.11 [facility] Comment on above: Order Comment: Speci men Type: BLOOD SPECIMENOrdering Facility: [facility] Address: [address] [place] [address] Performed By: #### 5 7021-8 ####[facility]ATORYCLIA [id number] [address] Basophils/100 WBC (Bld) 0.6 % Normal A [facility] Comment on above: Order Comment: Speci men Type: BLOOD SPECIMENOrdering Facility: [facility] Address: [address] [place] [address] Performed By: #### 5 7021-8 ####[facility]ATORYCLIA [id number] [address] Differential cell count method Nom (Bld) Auto Normal [facility] Comment on above: Order Comment: Speci men Type: BLOOD SPECIMENOrdering Facility: [facility] Address: [address] [place] [address] Performed By: #### 5 7021-8 ####[facility]ATORYCLIA [id number] [address] [place] Eosinophils (Bld) [#/Vol] 0.29 10*3/uL Normal <0.46 [facility] Comment on above: Order Comment: Speci men Type: BLOOD SPECIMENOrdering Facility: [facility] Address: [address] [place] [address] Performed By: #### 5 7021-8 ####[facility]ATORYCLIA [id number] [address] Eosinophils/100 WBC (Bld) 2.5 % Normal [facility] Comment on above: Order Comment: Speci men Type: BLOOD SPECIMENOrdering Facility: [facility] Address: [address] [place] [address] Performed By: #### 5 7021-8 ####[facility]ORATORYCLIA [id number] [address] Erythrocyte distribution width (RBC) [Ratio] 18.6 % High 11.5-15.0 [facility] Comment on above: Order Comment: Speci men Type: BLOOD SPECIMENOrdering Facility: [facility] Address: [address] [place] [address] Performed By: #### 5 7021-8 ####[facility]ORATORYCLIA [id number] [address] [place] Hematocrit (Bld) [Volume fraction] 34.0 % Low 39.0-51.0 [facility] Comment on above: Order Comment: Speci men Type: BLOOD SPECIMENOrdering Facility: [facility] Address: [address] [place] [address] Performed By: #### 5 7021-8 ####[facility]ORATORYCLIA [id number] [address] [place] Hemoglobin (Bld) [Mass/Vol] 10.3 g/dL Low 13.0-17.0 [facility] Comment on above: Order Comment: Speci men Type: BLOOD SPECIMENOrdering Facility: [facility] Address: [address] [place] [address] Performed By: #### 5 7021-8 ####[facility]ORATORYCLIA [id number] [address] Immature granulocytes (Bld) [#/Vol] 0.05 10*3/uL Normal <0.10 [facility] Comment on above: Order Comment: Speci men Type: BLOOD SPECIMENOrdering Facility: [facility] Address: [address] [place] [address] Performed By: #### 5 7021-8 ####[facility]ORATORYCLIA [id number] [address] Immature granulocytes/100 WBC (Bld) 0.4 % Normal [facility] Comment on above: Order Comment: Speci men Type: BLOOD SPECIMENOrdering Facility: [facility] Address: [address] [place] [address] Performed By: #### 5 7021-8 ####[facility]ORATORYCLIA [id number] [address] Lymphocytes (Bld) [#/Vol] 1.17 10*3/uL Normal 1.00-4.00 [facility] Comment on above: Order Comment: Speci men Type: BLOOD SPECIMENOrdering Facility: [facility] Address: [address] [place] [address] Performed By: #### 5 7021-8 ####[facility]ATORYCLIA [id number] [address] Lymphocytes/100 WBC (Bld) 10.2 % Normal [facility] Comment on above: Order Comment: Speci men Type: BLOOD SPECIMENOrdering Facility: [facility] Address: [address] [place] [address] Performed By: #### 5 7021-8 ####[facility]ORYCLIA [id number] [address] [place] MCH (RBC) [Entitic mass] 31.1 pg Normal 26.0-34.0 [facility] Comment on above: Order Comment: Speci men Type: BLOOD SPECIMENOrdering Facility: [facility] Address: [address] [place] [address] Performed By: #### 5 7021-8 ####[facility]ORATORYCLIA [id number] [address] [place] MCHC (RBC) [Mass/Vol] 30.3 g/dL Low 30.5-36.0 [facility] Comment on above: Order Comment: Speci men Type: BLOOD SPECIMENOrdering Facility: [facility] Address: [address] [place] [address] Performed By: #### 5 7021-8 ####[facility]ORATORYCLIA [id number] [address] OF [facility] MCV (RBC) [Entitic vol] 102.7 fL High 80.0-100.0 [facility] Comment on above: Order Comment: Speci men Type: BLOOD SPECIMENOrdering Facility: [facility] Address: [address] [place] [address] Performed By: #### 5 7021-8 ####[facility]ORATORYCLIA [id number] [address] Monocytes (Bld) [#/Vol] 0.96 10*3/uL High <0.87 [facility] Comment on above: Order Comment: Speci men Type: BLOOD SPECIMENOrdering Facility: [facility] Address: [address] [place] [address] Performed By: #### 5 7021-8 ####[facility]ORATORYCLIA [id number] [address] Monocytes/100 WBC (Bld) 8.4 % Normal A [facility] Comment on above: Order Comment: Speci men Type: BLOOD SPECIMENOrdering Facility: [facility] Address: [address] [place] [address] Performed By: #### 5 7021-8 ####[facility]ORATORYCLIA [id number] [place] [address] [place] Neutrophils (Bld) [#/Vol] 8.89 10*3/uL High 1.45-7.50 [facility] Comment on above: Order Comment: Speci men Type: BLOOD SPECIMENOrdering Facility: [facility] Address: [address] [place] [address] Performed By: #### 5 7021-8 ####[facility] LABORATORYCLIA [id number] [address] [place] Neutrophils/100 WBC (Bld) 77.9 % Normal [facility] Comment on above: Order Comment: Speci men Type: BLOOD SPECIMENOrdering Facility: [facility] Address: [address] [place] [address] Performed By: #### 5 7021-8 ####[facility] LABORATORYCLIA [id number] [place] [address] [place] Nucleated RBC (Bld) [#/Vol] 10*3/uL Normal <0.01 [facility] [facility] Comment on above: Order Comment: Speci men Type: BLOOD SPECIMENOrdering Facility: [facility] Address: [address] [place] [address] Performed By: #### 5 7021-8 ####[facility] LABORATORYCLIA [id number] [address] [place] Nucleated RBC/100 WBC (Bld) [Ratio] 0.0 /100 WBC Normal [facility] Comment on above: Order Comment: Speci men Type: BLOOD SPECIMENOrdering Facility: [facility] Address: [address] [place] [address] Performed By: #### 5 7021-8 ####[facility] LABORATORYCLIA [id number] [address] [place] Platelet mean volume (Bld) [Entitic vol] 9.7 fL Normal 9.0-12.7 [facility] Comment on above: Order Comment: Speci men Type: BLOOD SPECIMENOrdering Facility: [facility] Address: [address] [place] [address] Performed By: #### 5 7021-8 ####[facility] LABORATORYCLIA [id number] [address] STATES OF [facility] Platelets (Bld) [#/Vol] 207 10*3/uL Normal 150-400 [facility] Comment on above: Order Comment: Speci men Type: BLOOD SPECIMENOrdering Facility: [facility] Address: [address] [place] [address] Performed By: #### 5 7021-8 ####[facility] LABORATORYCLIA [id number] [address] STATES OF [facility] RBC (Bld) [#/Vol] 3.31 10*6/uL Low 4.20-6.00 [facility] Comment on above: Order Comment: Speci men Type: BLOOD SPECIMENOrdering Facility: [facility] Address: [address] [place] [address] Performed By: #### 5 7021-8 ####[facility] LABORATORYCLIA [id number] [address] [place] WBC (Bld) [#/Vol] 11.43 10*3/uL High 3.70-11.00 [facility] Comment on above: Order Comment: Speci men Type: BLOOD SPECIMENOrdering Facility: [facility] Address: [address] [place] [address] Performed By: #### 5 7021-8 ####[facility] LABORATORYCLIA [id number] [address] OF [facility] CONSULT PROGon 06-27-2025 CONSULT PROG Normal [facility] CONSULT PROG Normal [facility] Comprehensive metabolic 2000 panelon 06-27-2025 Albumin [Mass/Vol] 3.1 g/dL Low 3.9-4.9 [facility] Comment on above: Order Comment: Speci men Type: BLOOD SPECIMENOrdering Facility: [facility] Address: [address] [place] [address] Performed By: #### 2 4323-8 ####[facility]ORATORYCLIA [id number] [place] [address] [place] ALP [Catalytic activity/Vol] 481 U/L High 38-113 [facility] Comment on above: Order Comment: Speci men Type: BLOOD SPECIMENOrdering Facility: [facility] Address: [address] [place] [address] Performed By: #### 2 4323-8 ####[facility]ORATORYCLIA [id number] [address] [place] ALT With P-5'-P [Catalytic activity/Vol] 13 U/L Normal 10-54 [facility] Comment on above: Order Comment: Speci men Type: BLOOD SPECIMENOrdering Facility: [facility] Address: [address] [place] [address] Performed By: #### 2 4323-8 ####[facility] LABORATORYCLIA [id number] [address] STATES [facility] Anion gap [Moles/Vol] 15 mmol/L Normal 8-15 [facility] Comment on above: Order Comment: Speci men Type: BLOOD SPECIMENOrdering Facility: [facility] Address: [address] [place] [address] Performed By: #### 2 4323-8 ####[facility] LABORATORYCLIA [id number] [address] [place] AST With P-5'-P [Catalytic activity/Vol] 33 U/L Normal 14-40 [facility] Comment on above: Order Comment: Speci men Type: BLOOD SPECIMENOrdering Facility: [facility] Address: [address] [place] [address] Performed By: #### 2 4323-8 ####[facility] LABORATORYCLIA [id number] [address] [place] Bilirubin [Mass/Vol] 0.8 mg/dL Normal 0.2-1.3 [facility] Comment on above: Order Comment: Speci men Type: BLOOD SPECIMENOrdering Facility: [facility] Address: [address] [place] [address] Performed By: #### 2 4323-8 ####[facility]ORATORYCLIA [id number] [place] [address] [place] Calcium [Mass/Vol] 9.0 mg/dL Normal 8.5-10.2 [facility] Comment on above: Order Comment: Speci men Type: BLOOD SPECIMENOrdering Facility: [facility] Address: [address] [place] [address] Performed By: #### 2 4323-8 ####[facility] LABORATORYCLIA [id number] [place] [address] [place] Chloride [Moles/Vol] 97 mmol/L Low 98-107 [facility] Comment on above: Order Comment: Speci men Type: BLOOD SPECIMENOrdering Facility: [facility] Address: [address] [place] [address] Performed By: #### 2 4323-8 ####[facility] LABORATORYCLIA [id number] [place] [address] [place] CO2 [Moles/Vol] 24 mmol/L Normal 22-30 [facility] Comment on above: Order Comment: Speci men Type: BLOOD SPECIMENOrdering Facility: [facility] Address: [address] [place] [address] Performed By: #### 2 4323-8 ####[facility] LABORATORYCLIA [id number] [place] [address] [place] Creatinine [Mass/Vol] 3.65 mg/dL High 0.73-1.22 [facility] Comment on above: Order Comment: Speci men Type: BLOOD SPECIMENOrdering Facility: [facility] Address: [address] [place] [address] Performed By: #### 2 4323-8 ####[facility] LABORATORYCLIA [id number] [place] [address] [place] eGFRcr SerPlBld CKD-EPI 2020 16 mL/min/1.73m??? Low >=60 [facility] Comment on above: Order Comment: Zach schwartz Type: BLOOD SPECIMENOrdering Facility: [facility] Address: [address] [place] [address] Result Comment: Faviola mated Glomerular Filtration Rate [...] actual GFR. Performed By: #### 2 4323-8 ####[facility] LABORATORYCLIA [id number] [place] [address] [place] Glucose [Mass/Vol] 99 mg/dL Normal 74-99 [facility] Comment on above: Order Comment: Zach schwartz Type: BLOOD SPECIMENOrdering Facility: [facility] Address: [address] [place] [address] Result Comment: The [place] Diabetes [employer] (ADA) provides guidance for cutoff [...] Standards of Medical Care in Diabetes 2016, [place] [employer]. Diabetes Care. 2016.39(Suppl 1). Performed By: #### 2 4323-8 ####[facility]ORATORYCLIA [id number] [place] [address] [place] Potassium [Moles/Vol] 3.8 mmol/L Normal 3.7-5.1 [facility] Comment on above: Order Comment: Zach schwartz Type: BLOOD SPECIMENOrdering Facility: [facility] Address: [address] [place] [address] Performed By: #### 2 4323-8 ####[facility] LABORATORYCLIA [id number] [address] [place] Protein [Mass/Vol] 7.0 g/dL Normal 6.3-8.0 [facility] Comment on above: Order Comment: Zach schwartz Type: BLOOD SPECIMENOrdering Facility: [facility] Address: [address] [place] [address] Performed By: #### 2 4323-8 ####[facility] LABORATORYCLIA [id number] [address] STATES OF [facility] Sodium [Moles/Vol] 136 mmol/L Normal 136-144 [facility] Comment on above: Order Comment: Zach schwartz Type: BLOOD SPECIMENOrdering Facility: [facility] Address: [address] [place] [address] Performed By: #### 2 4323-8 ####[facility] LABORATORYCLIA [id number] [address] [place] Urea nitrogen [Mass/Vol] 14 mg/dL Normal 9-24 [facility] Comment on above: Order Comment: Zach schwartz Type: BLOOD SPECIMENOrdering Facility: [facility] Address: [address] [place] [address] Performed By: #### 2 4323-8 ####[facility]ORATORYCLIA [id number] [address] [place] PT panel Coag (PPP)on 2024 INR Coag (PPP) [Relative time] 2.2 {INR} High 0.9-1.3 [facility] Comment on above: Order Comment: Zach schwartz Type: BLOOD SPECIMENOrdering Facility: [facility] Address: [address] [place] [address] Result Comment: Zina min K Antagonist (VKA) Therapeutic Range: INR 2 to 3 (Target INR of 2.5)Note: For patients treated with VKA drugs, such as warfarin, the [place] [employer] 2012 Guideline recommends [...] al. Chest 2012, 141:7S-47SNishimura RA, et al. [facility] 2017, 70: 252-289 Performed By: #### 3 4528-0 ####[facility] LABORATORYCLIA [id number] [address] OF [facility] PT Coag (PPP) [Time] 22.5 s High 9.7-13.0 [facility] Comment on above: Order Comment: Zach schwartz Type: BLOOD SPECIMENOrdering Facility: [facility] Address: [address] [place] [address] Performed By: #### 3 4528-0 ####[facility] LABORATORYCLIA [id number] [address] CASE MANAGEMon 06-26-2025 CASE MANAGEM Normal [facility] CBC W Auto Differential pane l (Bld)on 06-26-2025 Basophils (Bld) [#/Vol] 0.05 10*3/uL Normal <0.11 [facility] Comment on above: Order Comment: Zach schwartz Type: BLOOD SPECIMENOrdering Facility: [facility] Address: [address] [place] [address] Performed By: #### 5 7021-8 ####[facility] LABORATORYCLIA [id number] [address] Basophils/100 WBC (Bld) 0.6 % Normal [facility] Comment on above: Order Comment: Zach schwartz Type: BLOOD SPECIMENOrdering Facility: [facility] Address: [address] [place] [address] Performed By: #### 5 7021-8 ####[facility] LABORATORYCLIA [id number] [address] Differential cell count method Nom (Bld) Auto Normal [facility] Comment on above: Order Comment: Speci men Type: BLOOD SPECIMENOrdering Facility: [facility] Address: [address] [place] [address] Performed By: #### 5 7021-8 ####[facility] LABORATORYCLIA [id number] [address] [place] Eosinophils (Bld) [#/Vol] 0.65 10*3/uL High <0.46 [facility] Comment on above: Order Comment: Speci men Type: BLOOD SPECIMENOrdering Facility: [facility] Address: [address] [place] [address] Performed By: #### 5 7021-8 ####[facility]ORATORYCLIA [id number] [address] Eosinophils/100 WBC (Bld) 7.4 % Normal [facility] Comment on above: Order Comment: Speci men Type: BLOOD SPECIMENOrdering Facility: [facility] Address: [address] [place] [address] Performed By: #### 5 7021-8 ####[facility] LABORATORYCLIA [id number] [address] [place] Erythrocyte distribution width (RBC) [Ratio] 18.6 % High 11.5-15.0 [facility] Comment on above: Order Comment: Speci men Type: BLOOD SPECIMENOrdering Facility: [facility] Address: [address] [place] [address] Performed By: #### 5 7021-8 ####[facility] LABORATORYCLIA [id number] [address] [place] Hematocrit (Bld) [Volume fraction] 34.5 % Low 39.0-51.0 [facility] Comment on above: Order Comment: Speci men Type: BLOOD SPECIMENOrdering Facility: [facility] Address: [address] [place] [address] Performed By: #### 5 7021-8 ####[facility]ORATORYCLIA [id number] [place] [address] [place] Hemoglobin (Bld) [Mass/Vol] 10.4 g/dL Low 13.0-17.0 [facility] Comment on above: Order Comment: Speci men Type: BLOOD SPECIMENOrdering Facility: [facility] Address: [address] [place] [address] Performed By: #### 5 7021-8 ####[facility] LABORATORYCLIA [id number] [place] [address] [place] Immature granulocytes (Bld) [#/Vol] 0.03 10*3/uL Normal <0.10 [facility] Comment on above: Order Comment: Speci men Type: BLOOD SPECIMENOrdering Facility: [facility] Address: [address] [place] [address] Performed By: #### 5 7021-8 ####[facility] LABORATORYCLIA [id number] [address] [place] Immature granulocytes/100 WBC (Bld) 0.3 % Normal [facility] Comment on above: Order Comment: Speci men Type: BLOOD SPECIMENOrdering Facility: [facility] Address: [address] [place] [address] Performed By: #### 5 7021-8 ####[facility]ORATORYCLIA [id number] [place] [address] [place] Lymphocytes (Bld) [#/Vol] 1.62 10*3/uL Normal 1.00-4.00 [facility] Comment on above: Order Comment: Speci men Type: BLOOD SPECIMENOrdering Facility: [facility] Address: [address] [place] [address] Performed By: #### 5 7021-8 ####[facility] LABORATORYCLIA [id number] [address] [place] Lymphocytes/100 WBC (Bld) 18.4 % Normal [facility] Comment on above: Order Comment: Speci men Type: BLOOD SPECIMENOrdering Facility: [facility] Address: [address] [place] [address] Performed By: #### 5 7021-8 ####[facility] LABORATORYCLIA [id number] [address] MCH (RBC) [Entitic mass] 30.0 pg Normal 26.0-34.0 [facility] Comment on above: Order Comment: Speci men Type: BLOOD SPECIMENOrdering Facility: [facility] Address: [address] [place] [address] Performed By: #### 5 7021-8 ####[facility] LABORATORYCLIA [id number] [address] [place] MCHC (RBC) [Mass/Vol] 30.1 g/dL Low 30.5-36.0 [facility] Comment on above: Order Comment: Speci men Type: BLOOD SPECIMENOrdering Facility: [facility] Address: [address] [place] [address] Performed By: #### 5 7021-8 ####[facility] LABORATORYCLIA [id number] [address] OF [facility] MCV (RBC) [Entitic vol] 99.4 fL Normal 80.0-100.0 [facility] Comment on above: Order Comment: Speci men Type: BLOOD SPECIMENOrdering Facility: [facility] Address: [address] [place] [address] Performed By: #### 5 7021-8 ####[facility] LABORATORYCLIA [id number] [address] STATES OF [facility] Monocytes (Bld) [#/Vol] 1.03 10*3/uL High <0.87 [facility] Comment on above: Order Comment: Speci men Type: BLOOD SPECIMENOrdering Facility: [facility] Address: [address] [place] [address] Performed By: #### 5 7021-8 ####[facility] LABORATORYCLIA [id number] [address] Monocytes/100 WBC (Bld) 11.7 % Normal [facility] Comment on above: Order Comment: Speci men Type: BLOOD SPECIMENOrdering Facility: [facility] Address: [address] [place] [address] Performed By: #### 5 7021-8 ####[facility]ORATORYCLIA [id number] [address] [place] Neutrophils (Bld) [#/Vol] 5.41 10*3/uL Normal 1.45-7.50 [facility] Comment on above: Order Comment: Speci men Type: BLOOD SPECIMENOrdering Facility: [facility] Address: [address] [place] [address] Performed By: #### 5 7021-8 ####[facility]ORATORYCLIA [id number] [address] Neutrophils/100 WBC (Bld) 61.6 % Normal [facility] Comment on above: Order Comment: Speci men Type: BLOOD SPECIMENOrdering Facility: [facility] Address: [address] [place] [address] Performed By: #### 5 7021-8 ####[facility]ORATORYCLIA [id number] [address] [place] Nucleated RBC (Bld) [#/Vol] 10*3/uL Normal <0.01 [facility] Comment on above: Order Comment: Speci men Type: BLOOD SPECIMENOrdering Facility: [facility] Address: [address] [place] [address] Performed By: #### 5 7021-8 ####[facility]ORATORYCLIA [id number] [address] [place] Nucleated RBC/100 WBC (Bld) [Ratio] 0.0 /100 WBC Normal [facility] Comment on above: Order Comment: Speci men Type: BLOOD SPECIMENOrdering Facility: [facility] Address: [address] [place] [address] Performed By: #### 5 7021-8 ####[facility]ORATORYCLIA [id number] [place] [address] [place] Platelet mean volume (Bld) [Entitic vol] 8.6 fL Low 9.0-12.7 [facility] Comment on above: Order Comment: Speci men Type: BLOOD SPECIMENOrdering Facility: [facility] Address: [address] [place] [address] Performed By: #### 5 7021-8 ####[facility] LABORATORYCLIA [id number] [place] [address] [place] Platelets (Bld) [#/Vol] 212 10*3/uL Normal 150-400 [facility] Comment on above: Order Comment: Speci men Type: BLOOD SPECIMENOrdering Facility: [facility] Address: [address] [place] [address] Performed By: #### 5 7021-8 ####[facility]ORATORYCLIA [id number] [place] [address] [place] RBC (Bld) [#/Vol] 3.47 10*6/uL Low 4.20-6.00 [facility] Comment on above: Order Comment: Speci men Type: BLOOD SPECIMENOrdering Facility: [facility] Address: [address] [place] [address] Performed By: #### 5 7021-8 ####[facility]ORATORYCLIA [id number] [place] [address] [place] WBC (Bld) [#/Vol] 8.79 10*3/uL Normal 3.70-11.00 [facility] Comment on above: Order Comment: Speci men Type: BLOOD SPECIMENOrdering Facility: [facility] Address: [address] [place] [address] Performed By: #### 5 7021-8 ####[facility]ORATORYCLIA [id number] [address] [place] CONSULT PROGon 06-26-2025 CONSULT PROG Normal [facility] CONSULT PROG Normal [facility] Comprehensive metabolic 2000 panelon 06-26-2025 Albumin [Mass/Vol] 3.1 g/dL Low 3.9-4.9 [facility] Comment on above: Order Comment: Speci men Type: BLOOD SPECIMENOrdering Facility: [facility] Address: [address] [place] [address] Performed By: #### 2 4323-8 ####[facility]ORATORYCLIA [id number] [place] [address] [place] ALP [Catalytic activity/Vol] 493 U/L High 38-113 [facility] Comment on above: Order Comment: Speci men Type: BLOOD SPECIMENOrdering Facility: [facility] Address: [address] [place] [address] Performed By: #### 2 4323-8 ####[facility]ORATORYCLIA [id number] [place] [address] [place] ALT With P-5'-P [Catalytic activity/Vol] 13 U/L Normal 10-54 [facility] Comment on above: Order Comment: Speci men Type: BLOOD SPECIMENOrdering Facility: [facility] Address: [address] [place] [address] Performed By: #### 2 4323-8 ####[facility]ORATORYCLIA [id number] [place] [address] [place] Anion gap [Moles/Vol] 14 mmol/L Normal 8-15 [facility] Comment on above: Order Comment: Speci men Type: BLOOD SPECIMENOrdering Facility: [facility] Address: [address] [place] [address] Performed By: #### 2 4323-8 ####[facility]ORATORYCLIA [id number] [place] [address] [place] AST With P-5'-P [Catalytic activity/Vol] 27 U/L Normal 14-40 [facility] Comment on above: Order Comment: Speci men Type: BLOOD SPECIMENOrdering Facility: [facility] Address: [address] [place] [address] Performed By: #### 2 4323-8 ####[facility]ORATORYCLIA [id number] [place] [address] [place] Bilirubin [Mass/Vol] 0.7 mg/dL Normal 0.2-1.3 [facility] Comment on above: Order Comment: Speci men Type: BLOOD SPECIMENOrdering Facility: [facility] Address: [address] [place] [address] Performed By: #### 2 4323-8 ####[facility]ORATORYCLIA [id number] [place] [address] [place] Calcium [Mass/Vol] 9.0 mg/dL Normal 8.5-10.2 [facility] Comment on above: Order Comment: Speci men Type: BLOOD SPECIMENOrdering Facility: [facility] Address: [address] [place] [address] Performed By: #### 2 4323-8 ####[facility]ORATORYCLIA [id number] [place] [address] [place] Chloride [Moles/Vol] 96 mmol/L Low 98-107 [facility] Comment on above: Order Comment: Speci men Type: BLOOD SPECIMENOrdering Facility: [facility] Address: [address] [place] [address] Performed By: #### 2 4323-8 ####[facility]ORATORYCLIA [id number] [place] [address] [place] CO2 [Moles/Vol] 27 mmol/L Normal 22-30 [facility] Comment on above: Order Comment: Speci men Type: BLOOD SPECIMENOrdering Facility: [facility] Address: [address] [place] [address] Performed By: #### 2 4323-8 ####[facility]ORATORYCLIA [id number] [place] [address] [place] Creatinine [Mass/Vol] 6.02 mg/dL High 0.73-1.22 [facility] Comment on above: Order Comment: Speci men Type: BLOOD SPECIMENOrdering Facility: [facility] Address: [address] [place] [address] Performed By: #### 2 4323-8 ####[facility]ORATORYCLIA [id number] [place] [address] [place] eGFRcr SerPlBld CKD-EPI 2020 9 mL/min/1.73m??? Low >=60 [facility] Comment on above: Order Comment: Zach schwartz Type: BLOOD SPECIMENOrdering Facility: [facility] Address: [address] [place] [address] Result Comment: Faviola mated Glomerular Filtration Rate [...] actual GFR. Performed By: #### 2 4323-8 ####[facility]ORATORYCLIA [id number] [place] [address] [place] Glucose [Mass/Vol] 108 mg/dL High 74-99 [facility] Comment on above: Order Comment: Zach schwartz Type: BLOOD SPECIMENOrdering Facility: [facility] Address: [address] [place] [address] Result Comment: The [place] Diabetes [employer] (ADA) provides guidance for cutoff [...] Standards of Medical Care in Diabetes 2016, [place] [employer]. Diabetes Care. 2016.39(Suppl 1). Performed By: #### 2 4323-8 ####[facility] LABORATORYCLIA [id number] [place] [id number] [place] Potassium [Moles/Vol] 3.7 mmol/L Normal 3.7-5.1 [facility] Comment on above: Order Comment: Speci men Type: BLOOD SPECIMENOrdering Facility: [facility] Address: [address] [place] [address] Performed By: #### 2 4323-8 ####[facility]ORATORYCLIA [id number] [address] STATES OF [facility] Protein [Mass/Vol] 6.5 g/dL Normal 6.3-8.0 [facility] Comment on above: Order Comment: Speci men Type: BLOOD SPECIMENOrdering Facility: [facility] Address: [address] [place] [address] Performed By: #### 2 4323-8 ####[facility] LABORATORYCLIA [id number] [address] [place] Sodium [Moles/Vol] 137 mmol/L Normal 136-144 [facility] Comment on above: Order Comment: Speci men Type: BLOOD SPECIMENOrdering Facility: [facility] Address: [address] [place] [address] Performed By: #### 2 4323-8 ####[facility] LABORATORYCLIA [id number] [address] [place] Urea nitrogen [Mass/Vol] 32 mg/dL High 9-24 [facility] Comment on above: Order Comment: Speci men Type: BLOOD SPECIMENOrdering Facility: [facility] Address: [address] [place] [address] Performed By: #### 2 4323-8 ####[facility] LABORATORYCLIA [id number] [address] [place] ECG COMPLETEon 06-26-2025 ECG COMPLETE Normal [facility] ESR Westergren method (Bld) [Velocity]on 06-26-2025 ESR (Bld) [Velocity] 79 mm/h High 0-15 [facility] Comment on above: Order Comment: Speci men Type: BLOOD SPECIMENOrdering Facility: [facility] Address: [address] [place] [address] Performed By: #### 4 537-7 ####[facility] LABCLIA [id number] [place] [id number] [facility] [place] OPERATIVE NOon 06-26-2025 OPERATIVE NO Normal [facility] PT panel Coag (PPP)on 2024 INR Coag (PPP) [Relative time] 2.2 {INR} High 0.9-1.3 [facility] Comment on above: Order Comment: Speci jordan Type: BLOOD SPECIMENOrdering Facility: [facility] Address: [address] [place] [address] Result Comment: Zina min K Antagonist (VKA) Therapeutic Range: INR 2 to 3 (Target INR of 2.5)Note: For patients treated with VKA drugs, such as warfarin, the [place] [employer] 2012 Guideline recommends [...] al. Chest 2012, 141:7S-47SNishdawood RA, et al. [facility] 2017, 70: 252-289 Performed By: #### 3 4528-0 ####[facility] LABORATORYCLIA [id number] [place] [id number] [place] PT Coag (PPP) [Time] 22.4 s High 9.7-13.0 [facility] Comment on above: Order Comment: Speci men Type: BLOOD SPECIMENOrdering Facility: [facility] Address: [address] [place] [id number] Performed By: #### 3 4528-0 ####[facility] LABORATORYCLIA [id number] [place] [id number] [place] THERAPY NTon 06-26-2025 THERAPY NT Normal [facility] THERAPY NT Normal [facility] ALLIED HEALTHon 06-25-2025 ALLIED HEALTH Normal [facility] Basic metabolic 2000 panelon 06-25-2025 Anion gap [Moles/Vol] 17 mmol/L High 8-15 [facility] Comment on above: Order Comment: Speci men Type: BLOOD SPECIMENOrdering Facility: [facility] Address: [address] [place] [address] Performed By: #### 2 4320-2, 2776-11, 1988-03 ####[facility] LABORATORYCLIA [id number] [place] [address] [place] Calcium [Mass/Vol] 8.5 mg/dL Normal 8.5-10.2 [facility] Comment on above: Order Comment: Speci men Type: BLOOD SPECIMENOrdering Facility: [facility] Address: [address] [place] [address] Performed By: #### 2 4322, 2776-11, 1988-03 ####[facility] LABORATORYCLIA [id number] [place] [address] [place] Chloride [Moles/Vol] 95 mmol/L Low 98-107 [facility] Comment on above: Order Comment: Speci men Type: BLOOD SPECIMENOrdering Facility: [facility] Address: [address] [place] [address] Performed By: #### 2 2, 2776-11, 1988-03 ####[facility] LABORATORYCLIA [id number] [place] [address] [place] CO2 [Moles/Vol] 24 mmol/L Normal 22-30 [facility] Comment on above: Order Comment: Speci men Type: BLOOD SPECIMENOrdering Facility: [facility] Address: [address] [place] [address] Performed By: #### 2 4322, 2776-11, 1988-03 ####[facility] LABORATORYCLIA [id number] [place] [address] [place] Creatinine [Mass/Vol] 4.32 mg/dL High 0.73-1.22 [facility] Comment on above: Order Comment: Zach schwartz Type: BLOOD SPECIMENOrdering Facility: [facility] Address: [address] [place] [address] Performed By: #### 2 4321-2, 2776-11, 1988-03 ####[facility] LABORATORYCLIA [id number] [place] [id number] [place] eGFRcr SerPlBld CKD-EPI 2020 13 mL/min/1.73m??? Low >=60 [facility] Comment on above: Order Comment: Zach schwartz Type: BLOOD SPECIMENOrdering Facility: [facility] Address: [address] [place] [address] Result Comment: Faviola mated Glomerular Filtration Rate [...] Performed By: #### 2 4321-2, 2776-11, 1988-03 ####[facility] HOSPITALIA [id number] [place] [address] [place] Glucose [Mass/Vol] 98 mg/dL Normal 74-99 [facility] Comment on above: Order Comment: Camdentrent schwartz Type: BLOOD SPECIMENOrdering Facility: [facility] Address: [address] [place] [address] Result Comment: The [place] Diabetes Association (ADA) provides guidance for cutoff [...] Standards of Medical Care in Diabetes 2016, [place] [employer]. Diabetes Care. 2016.39(Suppl 1). Performed By: #### 2 4321-2, 2776-11, 1988-03 ####[facility] LABORATORYCLIA [id number] [place] [address] [place] Potassium [Moles/Vol] 3.7 mmol/L Normal 3.7-5.1 [facility] Comment on above: Order Comment: Speci men Type: BLOOD SPECIMENOrdering Facility: [facility] Address: [address] [place] [address] Performed By: #### 2 432-2, 2776-11, 1988-03 ####[facility] LABORATORYCLIA [id number] [place] [address] [place] Sodium [Moles/Vol] 136 mmol/L Normal 136-144 [facility] Comment on above: Order Comment: Speci men Type: BLOOD SPECIMENOrdering Facility: [facility] Address: [address] [place] [address] Performed By: #### 2 432-2, 2776-11, 1988-03 ####[facility] LABORATORYCLIA [id number] [place] [address] [place] Urea nitrogen [Mass/Vol] 23 mg/dL Normal 9-24 [facility] Comment on above: Order Comment: Speci men Type: BLOOD SPECIMENOrdering Facility: [facility] Address: [address] [place] [address] Performed By: #### 2 432-2, 2776-11, 1988-03 ####[facility] LABORATORYCLIA [id number] [place] [address] [place] CASE MGT INIT ASSESon 2024 CASE MGT INIT ASSES Normal [facility] CBC W Auto Differential pane l (Bld)on 06-25-2025 Basophils (Bld) [#/Vol] 0.05 10*3/uL Normal <0.11 [facility] Comment on above: Order Comment: Speci men Type: BLOOD SPECIMENOrdering Facility: [facility] Address: [address] [place] [address] Performed By: #### 5 7021-8 ####[facility]ORATORYCLIA [id number] [address] STATES [facility] Basophils/100 WBC (Bld) 0.6 % Normal A [facility] Comment on above: Order Comment: Speci men Type: BLOOD SPECIMENOrdering Facility: [facility] Address: [address] [place] [address] Performed By: #### 5 7021-8 ####[facility]ORATORYCLIA [id number] [address] OF [facility] Differential cell count method Nom (Bld) Auto Normal [facility] Comment on above: Order Comment: Speci men Type: BLOOD SPECIMENOrdering Facility: [facility] Address: [address] [place] [address] Performed By: #### 5 7021-8 ####[facility]ORATORYCLIA [id number] [address] [place] Eosinophils (Bld) [#/Vol] 0.38 10*3/uL Normal <0.46 [facility] Comment on above: Order Comment: Speci men Type: BLOOD SPECIMENOrdering Facility: [facility] Address: [address] [place] [address] Performed By: #### 5 7021-8 ####[facility]ORATORYCLIA [id number] [address] Eosinophils/100 WBC (Bld) 4.7 % Normal [facility] Comment on above: Order Comment: Speci men Type: BLOOD SPECIMENOrdering Facility: [facility] Address: [address] [place] [address] Performed By: #### 5 7021-8 ####[facility]ORATORYCLIA [id number] [address] Erythrocyte distribution width (RBC) [Ratio] 18.3 % High 11.5-15.0 [facility] Comment on above: Order Comment: Speci men Type: BLOOD SPECIMENOrdering Facility: [facility] Address: [address] [place] [address] Performed By: #### 5 7021-8 ####[facility] LABORATORYCLIA [id number] [address] [place] Hematocrit (Bld) [Volume fraction] 34.3 % Low 39.0-51.0 [facility] Comment on above: Order Comment: Speci men Type: BLOOD SPECIMENOrdering Facility: [facility] Address: [address] [place] [address] Performed By: #### 5 7021-8 ####[facility] LABORATORYCLIA [id number] [address] [place] Hemoglobin (Bld) [Mass/Vol] 10.3 g/dL Low 13.0-17.0 [facility] Comment on above: Order Comment: Speci men Type: BLOOD SPECIMENOrdering Facility: [facility] Address: [address] [place] [address] Performed By: #### 5 7021-8 ####[facility] LABORATORYCLIA [id number] [address] [place] Immature granulocytes (Bld) [#/Vol] 0.03 10*3/uL Normal <0.10 [facility] Comment on above: Order Comment: Speci men Type: BLOOD SPECIMENOrdering Facility: [facility] Address: [address] [place] [address] Performed By: #### 5 7021-8 ####[facility] LABORATORYCLIA [id number] [address] [place] Immature granulocytes/100 WBC (Bld) 0.4 % Normal [facility] Comment on above: Order Comment: Speci men Type: BLOOD SPECIMENOrdering Facility: [facility] Address: [address] [place] [address] Performed By: #### 5 7021-8 ####[facility] LABORATORYCLIA [id number] [address] [place] Lymphocytes (Bld) [#/Vol] 1.00 10*3/uL Normal 1.00-4.00 [facility] Comment on above: Order Comment: Speci men Type: BLOOD SPECIMENOrdering Facility: [facility] Address: [address] [place] [address] Performed By: #### 5 7021-8 ####[facility] LABORATORYCLIA [id number] [address] Lymphocytes/100 WBC (Bld) 12.4 % Normal [facility] Comment on above: Order Comment: Speci men Type: BLOOD SPECIMENOrdering Facility: [facility] Address: [address] [place] [address] Performed By: #### 5 7021-8 ####[facility] LABORATORYCLIA [id number] [address] MCH (RBC) [Entitic mass] 30.3 pg Normal 26.0-34.0 [facility] Comment on above: Order Comment: Speci men Type: BLOOD SPECIMENOrdering Facility: [facility] Address: [address] [place] [address] Performed By: #### 5 7021-8 ####[facility] LABORATORYCLIA [id number] [address] MCHC (RBC) [Mass/Vol] 30.0 g/dL Low 30.5-36.0 [facility] Comment on above: Order Comment: Speci men Type: BLOOD SPECIMENOrdering Facility: [facility] Address: [address] [place] [address] Performed By: #### 5 7021-8 ####[facility] LABORATORYCLIA [id number] [address] MCV (RBC) [Entitic vol] 100.9 fL High 80.0-100.0 [facility] Comment on above: Order Comment: Speci men Type: BLOOD SPECIMENOrdering Facility: [facility] Address: [address] [place] [address] Performed By: #### 5 7021-8 ####[facility] LABORATORYCLIA [id number] [address] [place] Monocytes (Bld) [#/Vol] 0.82 10*3/uL Normal <0.87 [facility] Comment on above: Order Comment: Speci men Type: BLOOD SPECIMENOrdering Facility: [facility] Address: [address] [place] [address] Performed By: #### 5 7021-8 ####[facility] LABORATORYCLIA [id number] [address] [place] Monocytes/100 WBC (Bld) 10.2 % Normal [facility] Comment on above: Order Comment: Speci men Type: BLOOD SPECIMENOrdering Facility: [facility] Address: [address] [place] [address] Performed By: #### 5 7021-8 ####[facility] LABORATORYCLIA [id number] [address] [place] Neutrophils (Bld) [#/Vol] 5.76 10*3/uL Normal 1.45-7.50 [facility] Comment on above: Order Comment: Speci men Type: BLOOD SPECIMENOrdering Facility: [facility] Address: [address] [place] [address] Performed By: #### 5 7021-8 ####[facility] LABORATORYCLIA [id number] [address] [place] Neutrophils/100 WBC (Bld) 71.7 % Normal [facility] Comment on above: Order Comment: Speci men Type: BLOOD SPECIMENOrdering Facility: [facility] Address: [address] [place] [address] Performed By: #### 5 7021-8 ####[facility] LABORATORYCLIA [id number] [place] [address] [place] Nucleated RBC (Bld) [#/Vol] 10*3/uL Normal <0.01 [facility] Comment on above: Order Comment: Speci men Type: BLOOD SPECIMENOrdering Facility: [facility] Address: [address] [place] [address] Performed By: #### 5 7021-8 ####[facility] LABORATORYCLIA [id number] [address] [place] Nucleated RBC/100 WBC (Bld) [Ratio] 0.0 /100 WBC Normal [facility] Comment on above: Order Comment: Speci men Type: BLOOD SPECIMENOrdering Facility: [facility] Address: [address] [place] [address] Performed By: #### 5 7021-8 ####[facility] LABORATORYCLIA [id number] [address] [place] Platelet mean volume (Bld) [Entitic vol] 8.9 fL Low 9.0-12.7 [facility] Comment on above: Order Comment: Speci men Type: BLOOD SPECIMENOrdering Facility: [facility] Address: [address] [place] [address] Performed By: #### 5 7021-8 ####[facility] LABORATORYCLIA [id number] [address] [place] Platelets (Bld) [#/Vol] 212 10*3/uL Normal 150-400 [facility] Comment on above: Order Comment: Speci men Type: BLOOD SPECIMENOrdering Facility: [facility] Address: [address] [place] [address] Performed By: #### 5 7021-8 ####[facility] LABORATORYCLIA [id number] [place] [address] [place] RBC (Bld) [#/Vol] 3.40 10*6/uL Low 4.20-6.00 [facility] Comment on above: Order Comment: Speci men Type: BLOOD SPECIMENOrdering Facility: [facility] Address: [address] [place] [address] Performed By: #### 5 7021-8 ####[facility] LABORATORYCLIA [id number] [address] [place] WBC (Bld) [#/Vol] 8.04 10*3/uL Normal 3.70-11.00 [facility] Comment on above: Order Comment: Speci men Type: BLOOD SPECIMENOrdering Facility: [facility] Address: [address] [place] [address] [place] [address] Performed By: #### 5 7021-8 ####[facility] LABORATORYCLIA [id number] [address] [place] CONSULTon 06-25-2025 CONSULT Normal [facility] CONSULT Normal [facility] CONSULT PROGon 06-25-2025 CONSULT PROG Normal [facility] CONSULT PROG Normal [facility] CRP SerPl-mCncon 06-25-2025 CRP [Mass/Vol] 10.9 mg/dL High <0.9 [facility] Comment on above: Order Comment: Speci men Type: BLOOD SPECIMENOrdering Facility: [facility] Address: [address] [place] [address] [place] [address] Performed By: #### 2 4321-2, 2777-1, 1988-03 ####[facility] LABORATORYCLIA [id number] [address] [place] CT CERVICAL SPINE W IVCONon 06-25-2025 CT CERVICAL SPINE W IVCON Normal [facility] CT CHEST WO IVCONon 06-25-20 CT CHEST WO IVCON Normal [facility] CT LUMBAR SPINE W IVCONon CT LUMBAR SPINE W IVCON Normal A [facility] CT THORACIC SPINE W IVCONon 06-25-2025 CT THORACIC SPINE W IVCON Normal [facility] Lactate (Bld) [Moles/Vol]on 06-25-2025 Lactate [Moles/Vol] 1.7 mmol/L Normal 0.5-2.2 [facility] Comment on above: Order Comment: Speci men Type: BLOOD SPECIMENOrdering Facility: [facility] Address: [address] [place] [address] Performed By: #### 3 2693-4 ####[facility] LABORATORYCLIA [id number] [address] [place] NURSING PROGon 06-25-2025 NURSING PROG Normal [facility] NUTRITIONon 06-25-2025 NUTRITION Normal [facility] PT panel Coag (PPP)on 2024 INR Coag (PPP) [Relative time] 2.5 {INR} High 0.9-1.3 [facility] Comment on above: Order Comment: Zach schwartz Type: BLOOD SPECIMENOrdering Facility: [facility] Address: [address] [place] [id number] Result Comment: Zina min K Antagonist (VKA) Therapeutic Range: INR 2 to 3 (Target INR of 2.5)Note: For patients treated with VKA drugs, such as warfarin, the [place] [employer] 2012 Guideline recommends [...] al. Chest 2012, 141:7S-47SNishimmel RA, et al. JAC 2017, 70: 252-289 Performed By: #### 3 4528-0 ####[facility] LABORATORYCLIA [id number] [place] [address] [place] PT Coag (PPP) [Time] 26.0 s High 9.7-13.0 [facility] Comment on above: Order Comment: Zach schwartz Type: BLOOD SPECIMENOrdering Facility: [facility] Address: [address] [place] [id number] Performed By: #### 3 4528-0 ####[facility] LABORATORYCLIA [id number] [place] [address] [place] Phosphate SerPl-mCncon 06-25 Phosphate [Mass/Vol] 3.4 mg/dL Normal 2.7-4.8 [facility] Comment on above: Order Comment: Zach schwartz Type: BLOOD SPECIMENOrdering Facility: [facility] Address: [address] [place] [id number] Performed By: #### 2 4321-2, 2777-1, 1987- ####[facility] LABORATORYCLIA [id number] [address] [place] THERAPY NTon 06-25-2025 THERAPY NT Normal [facility] Ammonia Plas-sCncon 06-24-20 25 Ammonia (P) [Moles/Vol] 20 umol/L Normal 16-[address] [facility] Comment on above: Order Comment: Speci men Type: BLOOD SPECIMENOrdering Facility: [facility] Address: [address] [place] [address] Performed By: #### 1 6362-6 ####[facility] LABORATORYCLIA [id number] [address] STATES OF [facility] Bacteria Bld Culton 06-24-20 25 Bacteria identified Cx Nom (Bld) ORGANISM ID: 1 Culture report of Staphylococcus epidermidis Refer to specimen collected on 06/24/25 GRAM STAIN: Gram positive cocci Abnormal [facility] Comment on above: Performed By: #### I DBCGP, 600-7 ####[facility] LABORATORYCLIA [id number] [address] Bacteria identified Cx Nom (Bld) Abnormal [facility] Comment on above: Performed By: #### 6 00-7, IDBCGP ####[facility] LABORATORYCLIA [id number] [place] [address] [place] Basic metabolic 2000 panelon 06-24-2025 Anion gap [Moles/Vol] 22 mmol/L High 8-15 [facility] Comment on above: Order Comment: Speci men Type: BLOOD SPECIMENOrdering Facility: [facility] Address: [address] [place] [id number] Performed By: #### 2 4321-2 ####[facility] LABORATORYCLIA [id number] [place] [address] [place] Calcium [Mass/Vol] 8.2 mg/dL Low 8.5-10.2 [facility] Comment on above: Order Comment: Speci men Type: BLOOD SPECIMENOrdering Facility: [facility] Address: [address] [place] [address] Performed By: #### 2 4321-2 ####[facility] LABORATORYCLIA [id number] [place] [address] [place] Chloride [Moles/Vol] 94 mmol/L Low 98-107 [facility] Comment on above: Order Comment: Speci men Type: BLOOD SPECIMENOrdering Facility: [facility] Address: [address] [place] [address] Performed By: #### 2 4321-2 ####[facility] LABORATORYCLIA [id number] [place] [address] [place] CO2 [Moles/Vol] 21 mmol/L Low 22-30 [facility] Comment on above: Order Comment: Speci men Type: BLOOD SPECIMENOrdering Facility: [facility] Address: [address] [place] [address] Performed By: #### 2 4321-2 ####[facility] LABORATORYCLIA [id number] [place] [address] [place] Creatinine [Mass/Vol] 3.28 mg/dL High 0.73-1.22 [facility] Comment on above: Order Comment: Speci men Type: BLOOD SPECIMENOrdering Facility: [facility] Address: [address] [place] [address] Performed By: #### 2 4321-2 ####[facility] LABORATORYCLIA [id number] [place] [address] [place] eGFRcr SerPlBld CKD-EPI 2020 19 mL/min/1.73m??? Low >=60 [facility] Comment on above: Order Comment: Speci men Type: BLOOD SPECIMENOrdering Facility: [facility] Address: [address] [place] [address] Result Comment: Faviola mated Glomerular Filtration Rate [...] actual GFR. Performed By: #### 2 4321-2 ####[facility]ORATORYCLIA [id number] [place] [address] [place] Glucose [Mass/Vol] 98 mg/dL Normal 74-99 [facility] Comment on above: Order Comment: Spectrent men Type: BLOOD SPECIMENOrdering Facility: [facility] Address: [address] [place] [address] Result Comment: The [place] [employer] (ADA) provides guidance for cutoff [...] Standards of Medical Care in Diabetes 2016, [place] [employer]. Diabetes Care. 2016.39(Suppl 1). Performed By: #### 2 4321-2 ####[facility] LABORATORYCLIA [id number] [place] [address] [place] Potassium [Moles/Vol] 3.3 mmol/L Low 3.7-5.1 [facility] Comment on above: Order Comment: Zach schwartz Type: BLOOD SPECIMENOrdering Facility: [facility] Address: [address] [place] [address] Performed By: #### 2 4321-2 ####[facility] LABORATORYCLIA [id number] [place] [address] [place] Sodium [Moles/Vol] 137 mmol/L Normal 136-144 [facility] Comment on above: Order Comment: Zach men Type: BLOOD SPECIMENOrdering Facility: [facility] Address: [address] [place] [address] Performed By: #### 2 4321-2 ####[facility] LABORATORYCLIA [id number] [address] Urea nitrogen [Mass/Vol] 18 mg/dL Normal 9-24 [facility] Comment on above: Order Comment: Speci men Type: BLOOD SPECIMENOrdering Facility: [facility] Address: [address] [place] [address] Performed By: #### 2 4321-2 ####[facility]ORATORYCLIA [id number] [address] [place] CBC W Auto Differential pane l (Bld)on 06-24-2025 Basophils (Bld) [#/Vol] 0.04 10*3/uL Normal <0.11 [facility] Comment on above: Order Comment: Speci men Type: BLOOD SPECIMENOrdering Facility: [facility] Address: [address] [place] [address] Performed By: #### 5 7021-8 ####[facility] LABORATORYCLIA [id number] [address] Basophils/100 WBC (Bld) 0.4 % Normal [facility] Comment on above: Order Comment: Speci men Type: BLOOD SPECIMENOrdering Facility: [facility] Address: [address] [place] [address] Performed By: #### 5 7021-8 ####[facility] LABORATORYCLIA [id number] [address] Differential cell count method Nom (Bld) Auto Normal [facility] Comment on above: Order Comment: Speci men Type: BLOOD SPECIMENOrdering Facility: [facility] Address: [address] [place] [address] Performed By: #### 5 7021-8 ####[facility] LABORATORYCLIA [id number] [address] [place] Eosinophils (Bld) [#/Vol] 0.27 10*3/uL Normal <0.46 [facility] Comment on above: Order Comment: Speci men Type: BLOOD SPECIMENOrdering Facility: [facility] Address: [address] [place] [address] Performed By: #### 5 7021-8 ####[facility] LABORATORYCLIA [id number] [address] [place] Eosinophils/100 WBC (Bld) 2.7 % Normal [facility] Comment on above: Order Comment: Speci men Type: BLOOD SPECIMENOrdering Facility: [facility] Address: [address] [place] [address] Performed By: #### 5 7021-8 ####[facility]ATORYCLIA [id number] [address] [place] Erythrocyte distribution width (RBC) [Ratio] 18.3 % High 11.5-15.0 [facility] Comment on above: Order Comment: Speci men Type: BLOOD SPECIMENOrdering Facility: [facility] Address: [address] [place] [address] Performed By: #### 5 7021-8 ####[facility] LABORATORYCLIA [id number] [address] [place] Hematocrit (Bld) [Volume fraction] 32.2 % Low 39.0-51.0 [facility] Comment on above: Order Comment: Speci men Type: BLOOD SPECIMENOrdering Facility: [facility] Address: [address] [place] [address] Performed By: #### 5 7021-8 ####[facility]ATORYCLIA [id number] [address] [place] Hemoglobin (Bld) [Mass/Vol] 9.9 g/dL Low 13.0-17.0 [facility] Comment on above: Order Comment: Speci men Type: BLOOD SPECIMENOrdering Facility: [facility] Address: [address] [place] [address] Performed By: #### 5 7021-8 ####[facility]ATORYCLIA [id number] [address] [place] Immature granulocytes (Bld) [#/Vol] 0.05 10*3/uL Normal <0.10 [facility] Comment on above: Order Comment: Speci men Type: BLOOD SPECIMENOrdering Facility: [facility] Address: [address] [place] [address] Performed By: #### 5 7021-8 ####[facility]ORATORYCLIA [id number] [address] STATES [facility] Immature granulocytes/100 WBC (Bld) 0.5 % Normal [facility] Comment on above: Order Comment: Speci men Type: BLOOD SPECIMENOrdering Facility: [facility] Address: [address] [place] [address] Performed By: #### 5 7021-8 ####[facility]ATORYCLIA [id number] [address] [place] Lymphocytes (Bld) [#/Vol] 1.05 10*3/uL Normal 1.00-4.00 [facility] Comment on above: Order Comment: Speci men Type: BLOOD SPECIMENOrdering Facility: [facility] Address: [address] [place] [address] Performed By: #### 5 7021-8 ####[facility]ORATORYCLIA [id number] [address] Lymphocytes/100 WBC (Bld) 10.6 % Normal [facility] Comment on above: Order Comment: Speci men Type: BLOOD SPECIMENOrdering Facility: [facility] Address: [address] [place] [address] Performed By: #### 5 7021-8 ####[facility]ORATORYCLIA [id number] [address] [place] MCH (RBC) [Entitic mass] 30.4 pg Normal 26.0-34.0 [facility] Comment on above: Order Comment: Speci men Type: BLOOD SPECIMENOrdering Facility: [facility] Address: [address] [place] [address] Performed By: #### 5 7021-8 ####[facility]ATORYCLIA [id number] [address] [place] MCHC (RBC) [Mass/Vol] 30.7 g/dL Normal 30.5-36.0 [facility] Comment on above: Order Comment: Speci men Type: BLOOD SPECIMENOrdering Facility: [facility] Address: [address] [place] [address] Performed By: #### 5 7021-8 ####[facility]ORATORYCLIA [id number] [address] [place] MCV (RBC) [Entitic vol] 98.8 fL Normal 80.0-100.0 [facility] Comment on above: Order Comment: Speci men Type: BLOOD SPECIMENOrdering Facility: [facility] Address: [address] [place] [address] Performed By: #### 5 7021-8 ####[facility] LABORATORYCLIA [id number] [address] [place] Monocytes (Bld) [#/Vol] 0.88 10*3/uL High <0.87 [facility] Comment on above: Order Comment: Speci men Type: BLOOD SPECIMENOrdering Facility: [facility] Address: [address] [place] [address] Performed By: #### 5 7021-8 ####[facility]ORATORYCLIA [id number] [address] STATES OF [facility] Monocytes/100 WBC (Bld) 8.9 % Normal [facility] Comment on above: Order Comment: Speci men Type: BLOOD SPECIMENOrdering Facility: [facility] Address: [address] [place] [address] Performed By: #### 5 7021-8 ####[facility] LABORATORYCLIA [id number] [place] [address] [place] Neutrophils (Bld) [#/Vol] 7.61 10*3/uL High 1.45-7.50 [facility] Comment on above: Order Comment: Speci men Type: BLOOD SPECIMENOrdering Facility: [facility] Address: [address] [place] [address] Performed By: #### 5 7021-8 ####[facility]ATORYCLIA [id number] [address] Neutrophils/100 WBC (Bld) 76.9 % Normal [facility] Comment on above: Order Comment: Speci men Type: BLOOD SPECIMENOrdering Facility: [facility] Address: [address] [place] [address] Performed By: #### 5 7021-8 ####[facility]ORATORYCLIA [id number] [address] [place] Nucleated RBC (Bld) [#/Vol] 10*3/uL Normal <0.01 [facility] Comment on above: Order Comment: Speci men Type: BLOOD SPECIMENOrdering Facility: [facility] Address: [address] [place] [address] Performed By: #### 5 7021-8 ####[facility]ORATORYCLIA [id number] [address] STATES [facility] Nucleated RBC/100 WBC (Bld) [Ratio] 0.0 /100 WBC Normal [facility] Comment on above: Order Comment: Speci men Type: BLOOD SPECIMENOrdering Facility: [facility] Address: [address] [place] [address] Performed By: #### 5 7021-8 ####[facility]ORATORYCLIA [id number] [address] [place] Platelet mean volume (Bld) [Entitic vol] 9.1 fL Normal 9.0-12.7 [facility] Comment on above: Order Comment: Speci men Type: BLOOD SPECIMENOrdering Facility: [facility] Address: [address] [place] [address] Performed By: #### 5 7021-8 ####[facility]ATORYCLIA [id number] [address] [place] Platelets (Bld) [#/Vol] 214 10*3/uL Normal 150-400 [facility] Comment on above: Order Comment: Speci men Type: BLOOD SPECIMENOrdering Facility: [facility] Address: [address] [place] [address] Performed By: #### 5 7021-8 ####[facility]ORATORYCLIA [id number] [address] [place] RBC (Bld) [#/Vol] 3.26 10*6/uL Low 4.20-6.00 [facility] Comment on above: Order Comment: Speci men Type: BLOOD SPECIMENOrdering Facility: [facility] Address: [address] [place] [address] Performed By: #### 5 7021-8 ####[facility]ORATORYCLIA [id number] [address] STATES OF [facility] WBC (Bld) [#/Vol] 9.90 10*3/uL Normal 3.70-11.00 [facility] Comment on above: Order Comment: Speci men Type: BLOOD SPECIMENOrdering Facility: [facility] Address: [address] [place] [address] Performed By: #### 5 7021-8 ####[facility]ORATORYCLIA [id number] [address] CONSULTon 06-24-2025 CONSULT Normal [facility] CONSULT Normal [facility] CONSULT PROGon 06-24-2025 CONSULT PROG Normal [facility] CT CERVICAL SPINE WO IVCONon 06-24-2025 CT CERVICAL SPINE WO IVCON Normal [facility] CT THORACIC SPINE WO IVCONon 06-24-2025 CT THORACIC SPINE WO IVCON Normal [facility] GRAM POSITIVE ORGANISM ID BY MICROARRAY (goviral)on 06-24-2025 GRAM POSITIVE ORGANISM ID BY MICROARRAY (goviral) Abnormal [facility] Comment on above: Performed By: #### I DBCGP, 600-7 ####[facility]ORATORYCLIA [id number] [address] Performed By: #### 6 00-7, IDBCGP ####[facility]ORATORYCLIA [id number] [address] [place] HBV surface Ag Ser Qlon 08- HBV surface Ag Ql (S) Non-Reactive Normal Nonreactive [facility] Comment on above: Order Comment: Spectrent schwartz Type: BLOOD SPECIMENOrdering Facility: [facility] Address: [address] [place] [address] Performed By: #### 5 195-3 ####[facility] LABORATORYCLIA [id number] [address] HISTORY PHYSICALon HISTORY PHYSICAL Normal [facility] NURSING PROGon 06-24-2025 NURSING PROG Normal [facility] NURSING PROG Normal [facility] PT panel Coag (PPP)on 2024 INR Coag (PPP) [Relative time] 2.9 {INR} High 0.9-1.3 [facility] Comment on above: Order Comment: Speci jordan Type: BLOOD SPECIMENOrdering Facility: [facility] Address: [address] [place] [address] Result Comment: Zina min K Antagonist (VKA) Therapeutic Range: INR 2 to 3 (Target INR of 2.5)Note: For patients treated with VKA drugs, such as warfarin, the [place] [employer] 2012 Guideline recommends [...] al. Chest 2012, 141:7S-47SNishimmel RA, et al. [facility] 2017, 70: 252-289 Performed By: #### 3 4528-0, 73226-1 ####[facility]ORATORYCLIA [id number] [address] [place] PT Coag (PPP) [Time] 29.0 s High 9.7-13.0 [facility] Comment on above: Order Comment: Speci men Type: BLOOD SPECIMENOrdering Facility: [facility] Address: [address] [place] [address] Performed By: #### 3 4528-0, 71193-3 ####[facility]ORATORYCLIA [id number] [address] Procalcitonin SerPl-mCncon 0 06-24-2025 Procalcitonin [Mass/Vol] 0.50 ng/mL High <0.09 [facility] Comment on above: Order Comment: Speci men Type: BLOOD SPECIMENOrdering Facility: [facility] Address: [address] [place] [address] Result Comment: For a guided interpretation of test results, please visit the [facility] in Procalcitonin Calculator, [email or web address]. Performed By: #### 3 3959-8 ####[facility] LABORATORYCLIA [id number] [address] OF [facility] XR CHEST 1V FRONTALon 2024 XR CHEST 1V FRONTAL Normal [facility] aPTT PPPon 06-24-2025 aPTT Coag (PPP) [Time] 41.9 s High 23.0-32.4 [facility] Comment on above: Order Comment: Speci men Type: BLOOD SPECIMENOrdering Facility: [facility] Address: [address] [place] [address] Performed By: #### 3 4528-0, 18625-3 ####[facility]ORATORYCLIA [id number] [address] Absolute lymphocyte countOrd ered By: Amy Viramontes on 06-23-2025 Lymphocytes Auto (Unsp spec) [#/Vol] 1.85 10*3/uL 0.83-4.51 [facility] Anion gap in Serum or Plasma Ordered By: Amy Viramontes on 06-23-2025 Anion gap [Moles/Vol] 16 mmol/L High 5-15 [facility] Automated lymphocyte count a s percentage of total leukocytesOrdered By: Amy Viramontes on 06-23-2025 Lymphocytes/100 WBC Auto (Unsp spec) 15.5 % Low 19-41 [facility] BUN/creatinine ratioOrdered By: Remus Ungjake on 06-23-2025 Urea nitrogen/Creatinine [Mass ratio] 7.3 mg/mg Low 10-20 [facility] Basophil percentageOrdered B y: Rem Ungjake on 06-23-2025 Basophils/100 WBC (Bld) 0.6 % 0-1 [facility] Bilirubin, totalOrdered By: Remus Ungjake on 06-23-2025 Bilirubin [Mass/Vol] 0.76 mg/dL 0.00-1.30 [facility] Blood polychromasia detectio n by light microscopyOrdered By: Amy Viramontes on 06-23-2025 Polychromasia LM Ql (Bld) 1+ [facility] Carbon dioxide, total [Moles /volume] in Central venous bloodOrdered By: Amy Viramontes on 06-23-2025 CO2 [Moles/Vol] 28.0 mmol/L 21.0-32.0 [facility] Chloride assayOrdered By: Terra Viramontes on 06-23-2025 Chloride [Moles/Vol] 91 mmol/L Low 98-108 [facility] Eosinophil percentageOrdered By: Amy Ungjake on 06-23-2025 Eosinophils/100 WBC (Bld) 4.8 % 0-5 [facility] Erythrocyte distribution wid th ratioOrdered By: Remus Viramontes on 06-23-2025 Erythrocyte distribution width (RBC) [Ratio] 18.8 % High 11.6-14.6 [facility] Erythrocyte distribution wid th standard deviationOrdered By: Remus Ungjake on 06-23-2025 Erythrocyte distribution width (RBC) [Ratio] 68.0 fl High 35.1-43.9 [facility] Erythrocyte sedimentation ra teOrdered By: Remus Ungjake on 06-23-2025 ESR (Bld) [Velocity] 91 mm/h High 0-20 [facility] Glomerular filtration rate ( GFR) estimation/1.73 sq m using serum, plasma, or whole bOrdered By: Amy Viramontes on 06-23-2025 GFR/1.73 sq M.predicted among non-blacks MDRD (S/P/Bld) [Vol rate/Area] 9 mL/min/{1.73_m2} Low >60 [facility] Hematocrit Auto (Bld) [Volum e fraction]Ordered By: Amy Viramontes on 06-23-2025 Hematocrit (Bld) [Volume fraction] 33.6 % Low 40-54 [facility] Hemoglobin measurementOrdere d By: Amy Viramontes on 06-23-2025 Hemoglobin (Bld) [Mass/Vol] 10.7 g/dL Low 13.0-16.5 [facility] Immature granulocytes/100 WB C Auto (Bld)Ordered By: Amy Viramontes on 06-23-2025 Immature granulocytes/100 WBC (Bld) 0.500 % 0.0-0.9 [facility] MCV (mean corpuscular volume ) determinationOrdered By: Amy Viramontes on 06-23-2025 MCV (RBC) [Entitic vol] 98.5 fL High 80-94 [facility] Mean corpuscular hemoglobin (MCH) determinationOrdered By: Amy Viramontes on 06-23-2025 MCH (RBC) [Entitic mass] 31.4 pg 27.0-32.0 [facility] Monocyte percentageOrdered B y: Amy Viramontes on 06-23-2025 Monocytes/100 WBC (Bld) 10.4 % High 0-10 [facility] Neutrophil percentageOrdered By: Amy Viramontes on 06-23-2025 Neutrophils/100 WBC (Bld) 68.2 % 47-70 [facility] No Panel InformationOrdered By: Amy Viramontes on 06-23-2025 1+ [facility] 41 U/L High <38 [facility] Platelet countOrdered By: Terra Viramontes on 06-23-2025 Platelets (Bld) [#/Vol] 146 10*3/uL Low 150-450 [facility] Platelet estimateOrdered By: Amy Viramontes on 06-23-2025 Platelets LM Ql (Bld) SLT DEC ADEQ [facility] Potassium measurement (mass/ volume)Ordered By: Amy Viramontes on 06-23-2025 Potassium (Unsp spec) [Mass/Vol] 3.5 mmol/L 3.3-5.1 [facility] Prothrombin timeOrdered By: Amy Viramontes on 06-23-2025 PT Coag (PPP) [Time] 25.6 s High 11.7-14.9 [facility] RBC Auto (Bld) [#/Vol]Ordere d By: Amy Viramontes on 06-23-2025 RBC (Bld) [#/Vol] 3.41 10*6/uL Low 4.6-6.2 [facility] Serum creatinine measurement (mass/volume)Ordered By: Amy Viramontes on 06-23-2025 Creatinine [Mass/Vol] 5.88 mg/dL High 0.70-1.20 [facility] Serum globulin measurementOr dered By: Amy Viramontes on 06-23-2025 Globulin (S) [Mass/Vol] 3.8 g/dL 2.2-4.2 [facility] Serum glucose measurement (m ass/volume)Ordered By: Amy Viramontes on 06-23-2025 Glucose [Mass/Vol] 103 mg/dL High 70-99 [facility] Serum or plasma C reactive p rotein measurement (mass/volume)Ordered By: Amy Viramontes on 06-23-2025 CRP [Mass/Vol] 122.00 mg/L High 0.0-3.0 [facility] Serum or plasma alanine lorenzana otransferase (ALT) measurementOrdered By: Amy Viramontes on 06-23-2025 ALT [Catalytic activity/Vol] 17 U/L <47 [facility] Serum or plasma albumin khalif urement (mass/volume)Ordered By: Amy Viramontes on 06-23-2025 Albumin [Mass/Vol] 3.4 g/dL 3.4-4.8 [facility] Serum or plasma albumin/glob ulin mass ratioOrdered By: Amy Viramontes on 06-23-2025 Albumin/Globulin [Mass ratio] 0.9 {ratio} 0.9-2.4 [facility] Serum or plasma alkaline guille sphatase measurementOrdered By: Amy Viramontes on 06-23-2025 ALP [Catalytic activity/Vol] 515 U/L High 40-129 [facility] Serum or plasma calcium khalif urement (mass/volume)Ordered By: Remus Ungjake on 06-23-2025 Calcium [Mass/Vol] 9.5 mg/dL 7.6-11.0 [facility] Serum or plasma urea nitroge n measurement (mass/volume)Ordered By: Remus Ungjake on 06-23-2025 Urea nitrogen [Mass/Vol] 43 mg/dL High 4-19 [facility] Sodium levelOrdered By: Remu s Dawitjake on 06-23-2025 Sodium [Moles/Vol] 135 mmol/L 133-145 [facility] Total proteinOrdered By: Rem us Ungjake on 06-23-2025 Protein [Mass/Vol] 7.2 g/dL 5.9-8.4 [facility] White blood cell (WBC) count Ordered By: Remus Dawitjake on 06-23-2025 WBC (Bld) [#/Vol] 12.0 10*3/uL High 4.4-11.0 [facility] No Panel InformationOrdered By: Jane Torres on 06-22-2025 3.4 [facility] Absolute lymphocyte countOrd ered By: Pako Mendoza on 06-14-2025 Lymphocytes Auto (Unsp spec) [#/Vol] 2.16 10*3/uL 0.83-4.51 [facility] Activated partial thrombopla stin time (aPTT) in platelet poor plasma by coagulation aOrdered By: Pako Mendoza on 06-14-2025 aPTT Coag (PPP) [Time] 98.5 s High 24.1-36.2 [facility] Anion gap in Serum or Plasma Ordered By: Pako Mendoza on 06-14-2025 Anion gap [Moles/Vol] 17 mmol/L High 5-15 [facility] Automated lymphocyte count a s percentage of total leukocytesOrdered By: Pako Mendoza on 06-14-2025 Lymphocytes/100 WBC Auto (Unsp spec) 18.8 % Low 19-41 [facility] BUN/creatinine ratioOrdered By: Pako Mendoza on 06-14-2025 Urea nitrogen/Creatinine [Mass ratio] 7.7 mg/mg Low 10-20 [facility] Basophil percentageOrdered B y: Pako Mendoza on 06-14-2025 Basophils/100 WBC (Bld) 0.6 % 0-1 [facility] Bilirubin, totalOrdered By: Pako Mendoza on 06-14-2025 Bilirubin [Mass/Vol] 0.67 mg/dL 0.00-1.30 [facility] Carbon dioxide, total [Moles /volume] in Central venous bloodOrdered By: Pako Mendoza on 06-14-2025 CO2 [Moles/Vol] 26.6 mmol/L 21.0-32.0 [facility] Chloride assayOrdered By: Mario Mendoza on 06-14-2025 Chloride [Moles/Vol] 92 mmol/L Low 98-108 [facility] Eosinophil percentageOrdered By: Pako Mendoza on 06-14-2025 Eosinophils/100 WBC (Bld) 5.6 % High 0-5 [facility] Erythrocyte distribution wid th ratioOrdered By: Pako Mendoza on 06-14-2025 Erythrocyte distribution width (RBC) [Ratio] 19.0 % High 11.6-14.6 [facility] Erythrocyte distribution wid th standard deviationOrdered By: Pako Mendoza on 06-14-2025 Erythrocyte distribution width (RBC) [Ratio] 68.3 fl High 35.1-43.9 [facility] Glomerular filtration rate ( GFR) estimation/1.73 sq m using serum, plasma, or whole bOrdered By: Pako Mendoza on 06-14-2025 GFR/1.73 sq M.predicted among non-blacks MDRD (S/P/Bld) [Vol rate/Area] 8 mL/min/{1.73_m2} Low >60 [facility] Hematocrit Auto (Bld) [Volum e fraction]Ordered By: Pako Mendoza on 06-14-2025 Hematocrit (Bld) [Volume fraction] 29.9 % Low 40-54 [facility] Hemoglobin measurementOrdere d By: Pako Mendoza on 06-14-2025 Hemoglobin (Bld) [Mass/Vol] 9.5 g/dL Low 13.0-16.5 [facility] Immature granulocytes/100 WB C Auto (Bld)Ordered By: Pako Mendoza on 06-14-2025 Immature granulocytes/100 WBC (Bld) 0.300 % 0.0-0.9 [facility] MCV (mean corpuscular volume ) determinationOrdered By: Pako Mendoza on 06-14-2025 MCV (RBC) [Entitic vol] 98.7 fL High 80-94 [facility] Mean corpuscular hemoglobin (MCH) determinationOrdered By: Pako Mendoza on 06-14-2025 MCH (RBC) [Entitic mass] 31.4 pg 27.0-32.0 [facility] Monocyte percentageOrdered B y: Pako Mendoza on 06-14-2025 Monocytes/100 WBC (Bld) 9.8 % 0-10 [facility] Neutrophil percentageOrdered By: Pako Mendoza on 06-14-2025 Neutrophils/100 WBC (Bld) 64.9 % 47-70 [facility] No Panel InformationOrdered By: Pako Mendoza on 06-14-2025 1+ [facility] 49 U/L High <38 [facility] Platelet countOrdered By: Mario Mendoza on 06-14-2025 Platelets (Bld) [#/Vol] 216 10*3/uL 150-450 [facility] Potassium measurement (mass/ volume)Ordered By: Pako Mendoza on 06-14-2025 Potassium (Unsp spec) [Mass/Vol] 3.7 mmol/L 3.3-5.1 [facility] Prothrombin timeOrdered By: Pako Mendoza on 06-14-2025 PT Coag (PPP) [Time] 24.2 s High 11.7-14.9 [facility] RBC Auto (Bld) [#/Vol]Ordere d By: Pako Mendoza on 06-14-2025 RBC (Bld) [#/Vol] 3.03 10*6/uL Low 4.6-6.2 [facility] Serum creatinine measurement (mass/volume)Ordered By: Pako Mendoza on 06-14-2025 Creatinine [Mass/Vol] 6.37 mg/dL High 0.70-1.20 [facility] Serum globulin measurementOr dered By: Pako Mendoza on 06-14-2025 Globulin (S) [Mass/Vol] 4.0 g/dL 2.2-4.2 [facility] Serum glucose measurement (m ass/volume)Ordered By: Pako Mendoza on 06-14-2025 Glucose [Mass/Vol] 99 mg/dL 70-99 [facility] Serum or plasma alanine lorenzana otransferase (ALT) measurementOrdered By: Pako Mendoza on 06-14-2025 ALT [Catalytic activity/Vol] 20 U/L <47 [facility] Serum or plasma albumin khalif urement (mass/volume)Ordered By: Pako Mendoza on 06-14-2025 Albumin [Mass/Vol] 3.3 g/dL Low 3.4-4.8 [facility] Serum or plasma albumin/glob ulin mass ratioOrdered By: Pako Mendoza on 06-14-2025 Albumin/Globulin [Mass ratio] 0.8 {ratio} Low 0.9-2.4 [facility] Serum or plasma alkaline guille sphatase measurementOrdered By: Pako Mendoza on 06-14-2025 ALP [Catalytic activity/Vol] 508 U/L High 40-129 [facility] Serum or plasma calcium khalif urement (mass/volume)Ordered By: Pako Mendoza on 06-14-2025 Calcium [Mass/Vol] 9.6 mg/dL 7.6-11.0 [facility] Serum or plasma urea nitroge n measurement (mass/volume)Ordered By: Pako Mendoza on 06-14-2025 Urea nitrogen [Mass/Vol] 49 mg/dL High 4-19 [facility] Sodium levelOrdered By: aPko Mendoza on 06-14-2025 Sodium [Moles/Vol] 136 mmol/L 133-145 [facility] Total proteinOrdered By: Desiree Mendoza on 06-14-2025 Protein [Mass/Vol] 7.2 g/dL 5.9-8.4 [facility] Venous blood ammonia measure mentOrdered By: Pako Mendoza on 06-14-2025 Ammonia (P) [Moles/Vol] 45.0 umol/L 16-60 [facility] White blood cell (WBC) count Ordered By: Pako Mendoza on 06-14-2025 WBC (Bld) [#/Vol] 11.5 10*3/uL High 4.4-11.0 [facility] Prothrombin timeOrdered By: Jane Torres on 06-11-2025 PT Coag (PPP) [Time] 27.9 s High 11.7-14.9 [facility] No Panel InformationOrdered By: Jane Torres on 06-10-2025 4.7 [facility] No Panel InformationOrdered By: Jane Torres on 06-08-2025 4.4 [facility] Prothrombin timeOrdered By: Jane Torres on 06-01-2025 PT Coag (PPP) [Time] 30.9 s High 11.7-14.9 [facility] No Panel InformationOrdered By: Niels Flores on 05-29-2025 4.0 [facility] Absolute lymphocyte countOrd ered By: Karthikeyan Turner on 05-27-2025 Lymphocytes Auto (Unsp spec) [#/Vol] 1.55 10*3/uL 0.83-4.51 [facility] Anion gap in Serum or Plasma Ordered By: Karthikeyan Turner on 05-27-2025 Anion gap [Moles/Vol] 17 mmol/L High 5-15 [facility] Automated lymphocyte count a s percentage of total leukocytesOrdered By: Karthikeyan Turner on 05-27-2025 Lymphocytes/100 WBC Auto (Unsp spec) 14.9 % Low 19-41 [facility] BUN/creatinine ratioOrdered By: Karthikeyan Turner on 05-27-2025 Urea nitrogen/Creatinine [Mass ratio] 7.3 mg/mg Low 10-20 [facility] Basophil percentageOrdered B y: Karthikeyan Turner on 05-27-2025 Basophils/100 WBC (Bld) 0.6 % 0-1 [facility] Bilirubin, totalOrdered By: Karthikeyan Turner on 05-27-2025 Bilirubin [Mass/Vol] 0.64 mg/dL 0.00-1.30 [facility] Carbon dioxide, total [Moles /volume] in Central venous bloodOrdered By: Karthikeyan Turner on 05-27-2025 CO2 [Moles/Vol] 25.4 mmol/L 21.0-32.0 [facility] Chloride assayOrdered By: Holly Turner on 05-27-2025 Chloride [Moles/Vol] 94 mmol/L Low 98-108 [facility] Eosinophil percentageOrdered By: Karthikeyan Turner on 05-27-2025 Eosinophils/100 WBC (Bld) 3.1 % 0-5 [facility] Erythrocyte distribution wid th ratioOrdered By: Karthikeyan Turner on 05-27-2025 Erythrocyte distribution width (RBC) [Ratio] 17.7 % High 11.6-14.6 [facility] Erythrocyte distribution wid th standard deviationOrdered By: Karthikeyan Turner on 05-27-2025 Erythrocyte distribution width (RBC) [Ratio] 62.8 fl High 35.1-43.9 [facility] Glomerular filtration rate ( GFR) estimation/1.73 sq m using serum, plasma, or whole bOrdered By: Karthikeyan Turner on 05-27-2025 GFR/1.73 sq M.predicted among non-blacks MDRD (S/P/Bld) [Vol rate/Area] 9 mL/min/{1.73_m2} Low >60 [facility] Hematocrit Auto (Bld) [Volum e fraction]Ordered By: Karthikeyan Turner on 05-27-2025 Hematocrit (Bld) [Volume fraction] 26.8 % Low 40-54 [facility] Hemoglobin measurementOrdere d By: Karthikeyan Turner on 05-27-2025 Hemoglobin (Bld) [Mass/Vol] 8.3 g/dL Low 13.0-16.5 [facility] Immature granulocytes/100 WB C Auto (Bld)Ordered By: Karthikeyan Turner on 05-27-2025 Immature granulocytes/100 WBC (Bld) 0.700 % 0.0-0.9 [facility] Iron measurement (mass/mass) Ordered By: Karthikeyan Turner on 05-27-2025 Iron (Unsp spec) [Mass/Mass] 42 ug/dL Low 65-175 [facility] MCV (mean corpuscular volume ) determinationOrdered By: Karthikeyan Turner on 05-27-2025 MCV (RBC) [Entitic vol] 98.2 fL High 80-94 [facility] Mean corpuscular hemoglobin (MCH) determinationOrdered By: Karthikeyan Turner on 05-27-2025 MCH (RBC) [Entitic mass] 30.4 pg 27.0-32.0 [facility] Monocyte percentageOrdered B y: Karthikeyan Turner on 05-27-2025 Monocytes/100 WBC (Bld) 11.0 % High 0-10 [facility] Neutrophil percentageOrdered By: Karthikeyan Turner on 05-27-2025 Neutrophils/100 WBC (Bld) 69.7 % 47-70 [facility] No Panel InformationOrdered By: Karthikeyan Turner on 05-27-2025 32 U/L <38 [facility] 148 ug/dL Low 228-428 [facility] No Panel InformationOrdered By: Jane Torres on 05-27-2025 6.0 High [facility] Platelet countOrdered By: Holly Turner on 05-27-2025 Platelets (Bld) [#/Vol] 344 10*3/uL 150-450 [facility] Potassium measurement (mass/ volume)Ordered By: Karthikeyan Turner on 05-27-2025 Potassium (Unsp spec) [Mass/Vol] 3.4 mmol/L 3.3-5.1 [facility] Prothrombin timeOrdered By: Karthikeyan Turner on 05-27-2025 PT Coag (PPP) [Time] 37.6 s High 11.7-14.9 [facility] RBC Auto (Bld) [#/Vol]Ordere d By: Karthikeyan Turner on 05-27-2025 RBC (Bld) [#/Vol] 2.73 10*6/uL Low 4.6-6.2 [facility] Serum creatinine measurement (mass/volume)Ordered By: Karthikeyan Turner on 05-27-2025 Creatinine [Mass/Vol] 5.97 mg/dL High 0.70-1.20 [facility] Serum globulin measurementOr dered By: Karthikeyan Turner on 05-27-2025 Globulin (S) [Mass/Vol] 4.7 g/dL High 2.2-4.2 [facility] Serum glucose measurement (m ass/volume)Ordered By: Karthikeyan Turner on 05-27-2025 Glucose [Mass/Vol] 130 mg/dL High 70-99 [facility] Serum or plasma alanine lorenzana otransferase (ALT) measurementOrdered By: Karthikeyan Turner on 05-27-2025 ALT [Catalytic activity/Vol] 21 U/L <47 [facility] Serum or plasma albumin khalif urement (mass/volume)Ordered By: Karthikeyan Turner on 05-27-2025 Albumin [Mass/Vol] 3.3 g/dL Low 3.4-4.8 [facility] Serum or plasma albumin/glob ulin mass ratioOrdered By: Karthikeyan Turner on 05-27-2025 Albumin/Globulin [Mass ratio] 0.7 {ratio} Low 0.9-2.4 [facility] Serum or plasma alkaline guille sphatase measurementOrdered By: Karthikeyan Turner on 05-27-2025 ALP [Catalytic activity/Vol] 583 U/L High 40-129 [facility] Serum or plasma calcium khalif urement (mass/volume)Ordered By: Karthikeyan Turner on 05-27-2025 Calcium [Mass/Vol] 9.9 mg/dL 7.6-11.0 [facility] Serum or plasma ferritin vivienne surement (mass/volume)Ordered By: Karthikeyan Turner on 05-27-2025 Ferritin [Mass/Vol] 1558 ng/mL High 37-417 [facility] Serum or plasma iron saturat ion measurement (mass fraction)Ordered By: Karthikeyan Turner on 05-27-2025 Iron saturation [Mass fraction] 22.1 % 9-55 [facility] Serum or plasma urea nitroge n measurement (mass/volume)Ordered By: Karthikeyan Turner on 05-27-2025 Urea nitrogen [Mass/Vol] 44 mg/dL High 4-19 [facility] Sodium levelOrdered By: Lebron Turner on 05-27-2025 Sodium [Moles/Vol] 137 mmol/L 133-145 [facility] Total proteinOrdered By: Lul Turner on 05-27-2025 Protein [Mass/Vol] 8.0 g/dL 5.9-8.4 [facility] White blood cell (WBC) count Ordered By: Karthikeyan Turner on 05-27-2025 WBC (Bld) [#/Vol] 10.4 10*3/uL 4.4-11.0 [facility] No Panel InformationOrdered By: Jane Torres on 05-25-2025 5.7 High [facility] No Panel InformationOrdered By: Niels Flores on 05-18-2025 3.2 [facility] No Panel InformationOrdered By: Jane Torres on 05-13-2025 2.1 [facility] No Panel InformationOrdered By: Jane Torres on 05-11-2025 1.9 [facility] No Panel InformationOrdered By: Jane Torres on 05-07-2025 2.5 [facility] No Panel InformationOrdered By: Jane Torres on 05-04-2025 4.8 [facility] No Panel InformationOrdered By: Jane Torres on 04-28-2025 4.2 [facility] No Panel InformationOrdered By: Jane Torres on 04-27-2025 2.4 [facility] No Panel Informationon 04-20 3.2 [facility] No Panel InformationOrdered By: Jane Torres on 04-13-2025 2.3 [facility] No Panel InformationOrdered By: Jane Torres on 04-06-2025 2.1 [facility] No Panel InformationOrdered By: Jane Torres on 03-30-2025 2.8 [facility] No Panel InformationOrdered By: Jane Torres on 03-25-2025 2.5 [facility] No Panel InformationOrdered By: Jane Torres on 03-23-2025 1.7 [facility] No Panel Informationon 03-16 2.2 [facility] No Panel InformationOrdered By: Jane Torres on 03-12-2025 3.5 [facility] No Panel InformationOrdered By: Jane Torres on 03-10-2025 4.7 [facility] No Panel InformationOrdered By: Esa Mckeon on 03-09-2025 4.5 [facility] Laboratory - Coagulationon 0 03-06-2025 INR Coag (Bld) [Relative time] 3.2 {INR} High 0.9 - 1.1 [facility] PT Coag (PPP) [Time] 32.9 s High [facility] No Panel Informationon 03-06 [facility] 3.2 [facility] Interpretation and review of laboratory results Abnormal [facility] Radiology Study observation (narrative) [facility] PROTIME-INRon 03-06-2025 INR Coag (PPP) [Relative time] 3.2 {INR} High 0.9-1.1 [facility] Comment on above: Performed By: #### X M #### [facility] (DEFAULT) [address] [place] [address] PT Coag (PPP) [Time] 32.9 s High 11.9-14.2 [facility] Comment on above: Performed By: #### X M #### [facility] (DEFAULT) [address] [place] [address] CALCIUMon 03-05-2025 Calcium [Mass/Vol] 9.4 mg/dL Normal 8.6-10.5 [facility] Comment on above: Performed By: #### X M #### [facility] (DEFAULT) [address] [place] [address] CBC,PLATELETSon 03-05-2025 Hematocrit (Bld) [Volume fraction] 34.2 % Low 39.6-48.8 [facility] Comment on above: Performed By: #### H EMO #### [facility] (DEFAULT) [address] [place] [address] Hemoglobin (Bld) [Mass/Vol] 10.6 g/dL Low 13.4-16.8 [facility] Comment on above: Performed By: #### H EMOGC #### [facility] (DEFAULT) [address] [place] [address] MCV (RBC) [Entitic vol] 104.3 fL High 79.0-94.[address] [facility] Comment on above: Performed By: #### H EMOGC #### [facility] (DEFAULT) [address] [place] [address] Mean Cell Hgb 32.3 pg Normal 26.1-33.3 [facility] Comment on above: Performed By: #### H EMOGC #### [facility] (DEFAULT) [address] [address] Mean Cell Hgb Conc 31.0 g/dL Low 31.9-36.5 [facility] Comment on above: Performed By: #### H EMOGC #### [facility] (DEFAULT) [address] [address] Platelet mean volume (Bld) [Entitic vol] 9.2 fL Normal 8.7-12.3 [facility] Comment on above: Performed By: #### H EMOGC #### [facility] (DEFAULT) [address] [address] Platelets (Bld) [#/Vol] 303 10*3/uL Normal 146-337 [facility] Comment on above: Performed By: #### H EMOGC #### [facility] (DEFAULT) [address] [address] RBC (Bld) [#/Vol] 3.28 10*6/uL Low 4.38-5.83 [facility] Comment on above: Performed By: #### H EMOGC #### [facility] (DEFAULT) [address] [address] RBC Distribution 17.1 % High 10.9-14.3 [facility] Comment on above: Performed By: #### H EMOGC #### [facility] (DEFAULT) [address] [address] WBC (Bld) [#/Vol] 10.65 10*3/uL High 3.73-10.10 [facility] Comment on above: Performed By: #### H EMOGC #### [facility] (DEFAULT) [address] [address] CHEM 7 (LYTES,BUN,CREA,GLUC) on 03-05-2025 Anion gap [Moles/Vol] 19 mmol/L High 7- [facility] Comment on above: Performed By: #### X M #### [facility] (DEFAULT) [address] [place] [address] Chloride [Moles/Vol] 100 mmol/L Normal 98-108 [facility] Comment on above: Performed By: #### X M #### [facility] (DEFAULT) [address] [place] [address] CO2 [Moles/Vol] 25 mmol/L Normal 21-31 [facility] Comment on above: Performed By: #### X M #### [facility] (DEFAULT) [address] [place] [address] Creatinine [Mass/Vol] 5.35 mg/dL High 0.70-1.30 [facility] Comment on above: Performed By: #### X M #### [facility] (DEFAULT) [address] [place] [address] GFR/1.73 sq M.predicted among non-blacks MDRD (S/P/Bld) [Vol rate/Area] 10 mL/min/{1.73_m2} Low >=60 [facility] Comment on above: Result Comment: Repo rted eGFR is based on the CKD-EPI 2020 equation using creatinine, age, and sex. Performed By: #### X M #### [facility] (DEFAULT) [address] [place] [address] Glucose [Mass/Vol] 95 mg/dL Normal Nonfastin -179 mg/dL; Fastin-99 [facility] Comment on above: Performed By: #### X M #### [facility] (DEFAULT) [address] [place] [address] Osmolality [Osmolality] 297 mosm/kg Normal 278-305 [facility] Comment on above: Performed By: #### X M #### [facility] (DEFAULT) [address] [place] [address] Potassium [Moles/Vol] 5.1 mmol/L High 3.5-5.0 [facility] Comment on above: Performed By: #### X M #### [facility] (DEFAULT) [address] [place] [address] Sodium [Moles/Vol] 139 mmol/L Normal 135-145 [facility] Comment on above: Performed By: #### X M #### [facility] (DEFAULT) [address] [place] [address] Urea nitrogen [Mass/Vol] 26 mg/dL High 7-25 [facility] Comment on above: Performed By: #### X M #### [facility] (DEFAULT) [address] [place] [address] Urea nitrogen/Creatinine [Mass ratio] 5 mg/mg Normal [facility] Comment on above: Performed By: #### X M #### [facility] (DEFAULT) [address] [place] [address] Laboratory - Chemistry and C hemistry - challengeon 03-05-2025 Anion gap [Moles/Vol] 19 mmol/L High 7 - 17 mmol/L [facility] Calcium [Mass/Vol] 9.4 mg/dL 8.6 - 10. 5 mg/dL [facility] Chloride [Moles/Vol] 100 mmol/L 98 - 10 8 mmol/L [facility] CO2 [Moles/Vol] 25 mmol/L 21 - 31 mmol/L [facility] Creatinine [Mass/Vol] 5.35 mg/dL High 0.70 - 1.30 mg/dL [facility] Glucose [Mass/Vol] 95 mg/dL 70 - 179 mg/dL [facility] Magnesium [Mass/Vol] 2 mg/dL 1.6 - 2 .6 mg/dL [facility] Osmolality Calc [Osmolality] 297 [facility] Phosphate [Mass/Vol] 4.9 mg/dL High 2.2 - 4 .6 mg/dL [facility] Potassium [Moles/Vol] 5.1 mmol/L High 3.5 - 5.0 mmol/L [facility] Sodium [Moles/Vol] 139 mmol/L 135 - 145 mmol/L [facility] Urea nitrogen [Mass/Vol] 26 mg/dL High 7 - 25 mg/dL [facility] Urea nitrogen/Creatinine [Mass ratio] 5 mg/mg [facility] Laboratory - Coagulationon 0 03-05-2025 aPTT Coag (PPP) [Time] 86.9 s High [facility] INR Coag (Bld) [Relative time] 2.8 {INR} High 0.9 - 1.1 [facility] PT Coag (PPP) [Time] 29.8 s High [facility] Laboratory - Hematology and Cell countson 03-05-2025 Erythrocyte distribution width (RBC) [Ratio] 17.1 % High 10.9 - 14.3 % [facility] Hematocrit (Bld) [Volume fraction] 34.2 % Low 39.6 - 48.8 % [facility] Hemoglobin (Bld) [Mass/Vol] 10.6 g/dL Low 13.4 - 16.8 g/dL [facility] MCH (RBC) [Entitic mass] 32.3 pg 26.1 - 33.3 pg [facility] MCHC (RBC) [Mass/Vol] 31 g/dL Low 31.9 - 36.5 g/dL [facility] MCV (RBC) [Entitic vol] 104.3 fL High 79.0 - 94.5 fL [facility] Platelet mean volume (Bld) [Entitic vol] 9.2 fL 8.7 - 12.3 fL [facility] Platelets (Bld) [#/Vol] 303 10*3/uL 146 - 337 K/uL [facility] RBC (Bld) [#/Vol] 3.28 10*6/uL Low [facility] WBC (Bld) [#/Vol] 10.65 10*3/uL High 3.73 - 10 .10 K/uL [facility] MAGNESIUMon 03-05-2025 Magnesium [Mass/Vol] 2.0 mg/dL Normal 1.6-2.6 [facility] Comment on above: Performed By: #### X M #### [facility] (DEFAULT) [address] [place] [address] No Panel Informationon 03-05 ABO/RH(D) TYPE Positive [facility] Specimen Expiration 03/08/2025 23:59 [facility] Interpretation and review of laboratory results Abnormal [facility] Interpretation and review of laboratory results Abnormal [facility] eGFR, CKD-EPI, Male 10 Low - PINF [facility] Interpretation and review of laboratory results Abnormal [facility] Interpretation and review of laboratory results Normal [facility] Interpretation and review of laboratory results Abnormal [facility] PHOSPHATE, INORGANICon 03-05 Phosphorous 4.9 mg/dL High 2.2-4.6 [facility] Comment on above: Performed By: #### X M #### [facility] (DEFAULT) [address] [place] [address] PROTIME-INRon 03-05-2025 INR Coag (PPP) [Relative time] 2.8 {INR} High 0.9-1.1 [facility] Comment on above: Performed By: #### X M #### [facility] (DEFAULT) [address] [place] [address] PT Coag (PPP) [Time] 29.8 s High 11.9-14.2 [facility] Comment on above: Performed By: #### X M #### [facility] (DEFAULT) [address] [place] [address] PTTon 03-05-2025 aPTT Coag (Bld) [Time] 86.9 s High 24.0-34.3 [facility] Comment on above: Order Comment: After [...] Performed By: #### X M #### [facility] (DEFAULT) [address] [place] [address] TYPE AND SCREENon 03-05-2025 ABO/RH(D) TYPE Positive Normal [facility] Comment on above: Performed By: #### X M #### [facility] (DEFAULT) [address] [address] Specimen Expiration 03/08/2025 23:59 [facility] Comment on above: Performed By: #### X M #### [facility] (DEFAULT) [address] [place] [address] BLOOD CULTUREon 03-04-2025 Bacteria identified Cx Nom (Unsp spec) NO GROWTH DAY 5 OF 5 [facility] Comment on above: Order Comment: 2 Bot tles (1 Set - consists of 1 Aerobic bottle and 1 Anaerobic bottle) -1st Peripheral DrawFor vacutainer method draw: Fill aerobic bottle first, then anaerobic Performed By: #### X M #### [facility] (DEFAULT) [address] [place] [address] Laboratory - Coagulationon 0 03-04-2025 aPTT Coag (PPP) [Time] 112.5 s High [facility] aPTT Coag (PPP) [Time] 94.9 s High [facility] aPTT Coag (PPP) [Time] 113.6 s High [facility] aPTT Coag (PPP) [Time] 110.5 s High [facility] INR Coag (Bld) [Relative time] 2.4 {INR} High 0.9 - 1.1 [facility] PT Coag (PPP) [Time] 26.1 s High [facility] No Panel Informationon 03-04 Interpretation and review of laboratory results Abnormal [facility] Interpretation and review of laboratory results Abnormal [facility] Interpretation and review of laboratory results Abnormal [facility] Interpretation and review of laboratory results Abnormal [facility] Interpretation and review of laboratory results Abnormal [facility] Radiology Study observation (narrative) [facility] PROTIME-INRon 03-04-2025 INR Coag (PPP) [Relative time] 2.4 {INR} High 0.9-1.1 [facility] Comment on above: Performed By: #### X M #### [facility] (DEFAULT) [address] [place] [address] PT Coag (PPP) [Time] 26.1 s High 11.9-14.2 [facility] Comment on above: Performed By: #### X M #### [facility] (DEFAULT) [address] [place] [address] PTTon 03-04-2025 aPTT Coag (Bld) [Time] 112.5 s High 24.0-34.3 [facility] Comment on above: Order Comment: After [...] instructions. Performed By: #### X M #### [facility] (DEFAULT) [address] [place] [address] aPTT Coag (Bld) [Time] 94.9 s High 24.0-34.3 [facility] Comment on above: Order Comment: After [...] instructions. Performed By: #### X M #### [facility] (DEFAULT) [address] [address] aPTT Coag (Bld) [Time] 113.6 s High 24.0-34.3 [facility] Comment on above: Order Comment: After [...] Performed By: #### X M #### [facility] (DEFAULT) [address] [address] aPTT Coag (Bld) [Time] 110.5 s High 24.0-34.3 [facility] Comment on above: Order Comment: After [...] instructions. Performed By: #### X M #### [facility] (DEFAULT) [address] [address] BLOOD CULTUREon 03-03-2025 Bacteria identified Cx Nom (Unsp spec) NO GROWTH DAY 5 OF 5 Normal [facility] Comment on above: Order Comment: [...] bottle. Performed By: #### X M #### [facility] (DEFAULT) [address] [address] CALCIUMon 03-03-2025 Calcium [Mass/Vol] 9.0 mg/dL Normal 8.6-10.5 [facility] Comment on above: Performed By: #### X M #### [facility] (DEFAULT) [address] [address] CBC,PLATELETSon 03-03-2025 Hematocrit (Bld) [Volume fraction] 35.1 % Low 39.6-48.8 [facility] Comment on above: Performed By: #### X M #### [facility] (DEFAULT) [address] [address] Hemoglobin (Bld) [Mass/Vol] 10.9 g/dL Low 13.4-16.8 [facility] Comment on above: Performed By: #### X M #### [facility] (DEFAULT) [address] [address] MCV (RBC) [Entitic vol] 104.5 fL High 79.0-94.[address] [facility] Comment on above: Performed By: #### X M #### [facility] (DEFAULT) [address] [address] Mean Cell Hgb 32.4 pg Normal 26.1-33.3 [facility] Comment on above: Performed By: #### X M #### [facility] (DEFAULT) [address] [address] Mean Cell Hgb Conc 31.1 g/dL Low 31.9-36.5 [facility] Comment on above: Performed By: #### X M #### [facility] (DEFAULT) [address] [address] Platelet mean volume (Bld) [Entitic vol] 9.5 fL Normal 8.7-12.3 [facility] Comment on above: Performed By: #### X M #### [facility] (DEFAULT) [address] [address] Platelets (Bld) [#/Vol] 288 10*3/uL Normal 146-337 [facility] Comment on above: Performed By: #### X M #### [facility] (DEFAULT) [address] [address] RBC (Bld) [#/Vol] 3.36 10*6/uL Low 4.38-5.83 [facility] Comment on above: Performed By: #### X M #### [facility] (DEFAULT) [address] [address] RBC Distribution 17.4 % High 10.9-14.3 [facility] Comment on above: Performed By: #### X M #### [facility] (DEFAULT) [address] [address] WBC (Bld) [#/Vol] 8.86 10*3/uL Normal 3.73-10.10 [facility] Comment on above: Performed By: #### X M #### [facility] (DEFAULT) [address] [address] CHEM 7 (LYTES,BUN,CREA,GLUC) on 03-03-2025 Anion gap [Moles/Vol] 18 mmol/L High 7-17 [facility] Comment on above: Performed By: #### X M #### [facility] (DEFAULT) [address] [place] [address] Chloride [Moles/Vol] 97 mmol/L Low 98-108 [facility] Comment on above: Performed By: #### X M #### [facility] (DEFAULT) [address] [place] [address] CO2 [Moles/Vol] 25 mmol/L Normal 21-31 [facility] Comment on above: Performed By: #### X M #### [facility] (DEFAULT) [address] [place] [address] Creatinine [Mass/Vol] 5.02 mg/dL High 0.70-1.30 [facility] Comment on above: Performed By: #### X M #### [facility] (DEFAULT) [address] [place] [address] GFR/1.73 sq M.predicted among non-blacks MDRD (S/P/Bld) [Vol rate/Area] 11 mL/min/{1.73_m2} Low >=60 [facility] Comment on above: Result Comment: Repo rted eGFR is based on the CKD-EPI 2020 equation using creatinine, age, and sex. Performed By: #### X M #### [facility] (DEFAULT) [address] [place] [address] Glucose [Mass/Vol] 89 mg/dL Normal Nonfastin -179 mg/dL; Fastin-99 [facility] Comment on above: Performed By: #### X M #### [facility] (DEFAULT) [address] [place] [address] Osmolality [Osmolality] 288 mosm/kg Normal 278-305 [facility] Comment on above: Performed By: #### X M #### [facility] (DEFAULT) [address] [place] [address] Potassium [Moles/Vol] 4.6 mmol/L Normal 3.5-5.0 [facility] Comment on above: Performed By: #### X M #### [facility] (DEFAULT) [address] [place] [address] Sodium [Moles/Vol] 135 mmol/L Normal 135-145 [facility] Comment on above: Performed By: #### X M #### [facility] (DEFAULT) [address] [place] [address] Urea nitrogen [Mass/Vol] 24 mg/dL Normal 7-25 [facility] Comment on above: Performed By: #### X M #### [facility] (DEFAULT) [address] [place] [address] Urea nitrogen/Creatinine [Mass ratio] 5 mg/mg Normal [facility] Comment on above: Performed By: #### X M #### [facility] (DEFAULT) [address] [place] [address] IRON/IRON BINDING/TRANSFERRI Non 03-03-2025 Iron [Mass/Vol] 59 ug/dL Normal 40-174 [facility] Comment on above: Performed By: #### X M #### [facility] (DEFAULT) [address] [place] [address] Iron Saturation 24 % Normal 20-55 [facility] Comment on above: Performed By: #### X M #### [facility] (DEFAULT) [address] [place] [address] Total Iron Binding Capacity 241 mcg/dL Low 250-425 [facility] Comment on above: Performed By: #### X M #### [facility] (DEFAULT) [address] [place] [address] Transferrin [Mass/Vol] 193 mg/dL Low 200-400 [facility] Comment on above: Performed By: #### X M #### [facility] (DEFAULT) [address] [place] [address] Laboratory - Chemistry and C hemistry - challengeon 03-03-2025 Iron [facility]Mass/Vol] 59 [facility] Iron binding capacity [Mass/Vol] 241 Low [facility] Iron saturation [Mass fraction] 24 % 20 - 55 % [facility] Transferrin [Mass/Vol] 193 mg/dL Low 200 - 400 mg/dL [facility] Anion gap [Moles/Vol] 18 mmol/L High 7 - 17 mmol/L [facility] Chloride [Moles/Vol] 97 mmol/L Low 98 - 10 8 mmol/L [facility] CO2 [Moles/Vol] 25 mmol/L 21 - 31 mmol/L [facility] Creatinine [Mass/Vol] 5.02 mg/dL High 0.70 - 1.30 mg/dL [facility] Glucose [Mass/Vol] 89 mg/dL 70 - 179 mg/dL [facility] Osmolality Calc [Osmolality] 288 [facility] Potassium [Moles/Vol] 4.6 mmol/L 3.5 - 5.0 mmol/L [facility] Sodium [Moles/Vol] 135 mmol/L 135 - 145 mmol/L [facility] Urea nitrogen [Mass/Vol] 24 mg/dL 7 - 25 mg/dL [facility] Urea nitrogen/Creatinine [Mass ratio] 5 mg/mg [facility] Magnesium [Mass/Vol] 1.9 mg/dL 1.6 - 2 .6 mg/dL [facility] Phosphate [Mass/Vol] 4.5 mg/dL 2.2 - 4 .6 mg/dL [facility] Calcium [Mass/Vol] 9 mg/dL 8.6 - 10. 5 mg/dL [facility] Laboratory - Coagulationon 0 03-03-2025 aPTT Coag (PPP) [Time] 94.8 s High [facility] aPTT Coag (PPP) [Time] 80.8 s High [facility] INR Coag (Bld) [Relative time] 2.1 {INR} High 0.9 - 1.1 [facility] PT Coag (PPP) [Time] 23.6 s High [facility] aPTT Coag (PPP) [Time] 102.3 s High [facility] Laboratory - Hematology and Cell countson 03-03-2025 Erythrocyte distribution width (RBC) [Ratio] 17.4 % High 10.9 - 14.3 % [facility] Hematocrit (Bld) [Volume fraction] 35.1 % Low 39.6 - 48.8 % [facility] Hemoglobin (Bld) [Mass/Vol] 10.9 g/dL Low 13.4 - 16.8 g/dL [facility] MCH (RBC) [Entitic mass] 32.4 pg 26.1 - 33.3 pg [facility] MCHC (RBC) [Mass/Vol] 31.1 g/dL Low 31.9 - 36.5 g/dL [facility] MCV (RBC) [Entitic vol] 104.5 fL High 79.0 - 94.5 fL [facility] Platelet mean volume (Bld) [Entitic vol] 9.5 fL 8.7 - 12.3 fL [facility] Platelets (Bld) [#/Vol] 288 10*3/uL 146 - 337 K/uL [facility] RBC (Bld) [#/Vol] 3.36 10*6/uL Low [facility] WBC (Bld) [#/Vol] 8.86 10*3/uL 3.73 - 10. 10 K/uL [facility] MAGNESIUMon 03-03-2025 Magnesium [Mass/Vol] 1.9 mg/dL Normal 1.6-2.6 [facility] Comment on above: Performed By: #### X M #### [facility] (DEFAULT) [address] [place] [address] No Panel Informationon 03-03 Interpretation and review of laboratory results Abnormal [facility] Interpretation and review of laboratory results Abnormal [facility] Interpretation and review of laboratory results Abnormal [facility] Interpretation and review of laboratory results Abnormal [facility] Interpretation and review of laboratory results Abnormal [facility] eGFR, CKD-EPI, Male 11 Low - PINF [facility] Interpretation and review of laboratory results Abnormal [facility] Interpretation and review of laboratory results Normal [facility] Interpretation and review of laboratory results Abnormal [facility] PHOSPHATE, INORGANICon 03-03 Phosphorous 4.5 mg/dL Normal 2.2-4.6 [facility] Comment on above: Performed By: #### X M #### [facility] (DEFAULT) [address] [place] [address] PROTIME-INRon 03-03-2025 INR Coag (PPP) [Relative time] 2.1 {INR} High 0.9-1.1 [facility] Comment on above: Performed By: #### X M #### [facility] (DEFAULT) [address] [place] [address] PT Coag (PPP) [Time] 23.6 s High 11.9-14.2 [facility] Comment on above: Performed By: #### X M #### [facility] (DEFAULT) [address] [place] [address] PTTon 03-03-2025 aPTT Coag (Bld) [Time] 94.8 s High 24.0-34.3 [facility] Comment on above: Order Comment: After [...] Performed By: #### S URGP #### [facility] (DEFAULT) [address] [address] aPTT Coag (Bld) [Time] 80.8 s High 24.0-34.3 [facility] Comment on above: Order Comment: After [...] instructions. Performed By: #### X M #### [facility] (DEFAULT) [address] [address] aPTT Coag (Bld) [Time] 102.3 s High 24.0-34.3 [facility] Comment on above: Order Comment: After [...] instructions. Performed By: #### X M #### [facility] (DEFAULT) [address] [address] Bacteria identified Cx Nom ( Bld)Ordered By: Kia Higuera on 03-02-2025 Bacteria identified Cx Nom (Unsp spec) Growth [facility] Bacteria identified Cx Nom (Unsp spec) METHICILLIN RESISTANT STAPHYLOCOCCUS EPIDERMIDIS Abnormal [facility] Interpretation and review of laboratory results Abnormal [facility] Bacteria identified Cx Nom ( Unsp spec)Ordered By: Jaelyn Rodrigez on 03-02-2025 Microscopic observation Other stain Nom (Unsp spec) Neutrophils, Light [facility] Microscopic observation Other stain Nom (Unsp spec) No organisms seen [facility] CHEM 6 (LYTES, BUN CREA)on 0 - Anion gap [Moles/Vol] 21 mmol/L High 7-17 [facility] Comment on above: Performed By: #### X M #### [facility] (DEFAULT) [address] [place] [address] Chloride [Moles/Vol] 97 mmol/L Low 98-108 [facility] Comment on above: Performed By: #### X M #### [facility] (DEFAULT) [address] [address] CO2 [Moles/Vol] 24 mmol/L Normal 21-31 [facility] Comment on above: Performed By: #### X M #### [facility] (DEFAULT) [address] [address] Creatinine [Mass/Vol] 7.34 mg/dL High 0.70-1.30 [facility] Comment on above: Performed By: #### X M #### [facility] (DEFAULT) [address] [address] GFR/1.73 sq M.predicted among non-blacks MDRD (S/P/Bld) [Vol rate/Area] 7 mL/min/{1.73_m2} Low >=60 [facility] Comment on above: Result Comment: Repo rted eGFR is based on the CKD-EPI 2020 equation using creatinine, age, and sex. Performed By: #### X M #### [facility] (DEFAULT) [address] [address] Potassium [Moles/Vol] 4.6 mmol/L Normal 3.5-5.0 [facility] Comment on above: Performed By: #### X M #### [facility] (DEFAULT) [address] [address] Sodium [Moles/Vol] 137 mmol/L Normal 135-145 [facility] Comment on above: Performed By: #### X M #### [facility] (DEFAULT) [address] [place] [address] Urea nitrogen [Mass/Vol] 44 mg/dL High 7-25 [facility] Comment on above: Performed By: #### X M #### [facility] (DEFAULT) [address] [place] [address] Urea nitrogen/Creatinine [Mass ratio] 6 mg/mg Normal [facility] Comment on above: Performed By: #### X M #### [facility] (DEFAULT) [address] [place] [address] HEMOGLOBIN & HEMATOCRITon Hematocrit (Bld) [Volume fraction] 30.8 % Low 39.6-48.8 [facility] Comment on above: Performed By: #### X M #### [facility] (DEFAULT) [address] [place] [address] Hemoglobin (Bld) [Mass/Vol] 9.7 g/dL Low 13.4-16.8 [facility] Comment on above: Performed By: #### X M #### [facility] (DEFAULT) [address] [place] [address] Laboratory - Chemistry and C hemistry - challengeon 03-02-2025 Anion gap [Moles/Vol] 21 mmol/L High 7 - 17 mmol/L [facility] Chloride [Moles/Vol] 97 mmol/L Low 98 - 10 8 mmol/L [facility] CO2 [Moles/Vol] 24 mmol/L 21 - 31 mmol/L [facility] Creatinine [Mass/Vol] 7.34 mg/dL High 0.70 - 1.30 mg/dL [facility] Potassium [Moles/Vol] 4.6 mmol/L 3.5 - 5.0 mmol/L [facility] Sodium [Moles/Vol] 137 mmol/L 135 - 145 mmol/L [facility] Urea nitrogen [Mass/Vol] 44 mg/dL High 7 - 25 mg/dL [facility] Urea nitrogen/Creatinine [Mass ratio] 6 mg/mg [facility] Laboratory - CoagulationOrde red By: Rae Meza on 03-02-2025 aPTT Coag (PPP) [Time] 88.4 s High OS [facility] Laboratory - Coagulationon 0 03-02-2025 INR Coag (Bld) [Relative time] 2.1 {INR} High 0.9 - 1.1 [facility] PT Coag (PPP) [Time] 23 s High [facility] aPTT Coag (PPP) [Time] 61.2 s High [facility] aPTT Coag (PPP) [Time] 130.2 s High [facility] INR Coag (Bld) [Relative time] 1.9 {INR} High 0.9 - 1.1 [facility] PT Coag (PPP) [Time] 21.4 s High [facility] Laboratory - CoagulationOrde red By: Jenni Calle on 03-02-2025 aPTT Coag (PPP) [Time] 53 s High [facility] Laboratory - Hematology and Cell countson 03-02-2025 Hematocrit (Bld) [Volume fraction] 30.8 % Low 39.6 - 48.8 % [facility] Hemoglobin (Bld) [Mass/Vol] 9.7 g/dL Low 13.4 - 16.8 g/dL [facility] Laboratory - Microbiology an d Antimicrobial susceptibilityOrdered By: Jaelyn Rodrigez on 03-02-2025 Bacteria identified Cx Nom (Unsp spec) NO GROWTH DAY 2 OF 2 [facility] No Panel InformationOrdered By: Rae Meza on 03-02-2025 Interpretation and review of laboratory results Abnormal [facility] No Panel Informationon 03-02 Interpretation and review of laboratory results Abnormal [facility] Interpretation and review of laboratory results Abnormal [facility] eGFR, CKD-EPI, Male 7 Low - PINF [facility] Interpretation and review of laboratory results Abnormal [facility] Interpretation and review of laboratory results Abnormal [facility] Interpretation and review of laboratory results Abnormal [facility] ABO/RH(D) TYPE Positive [facility] Specimen Expiration 03/05/2025 05:08 [facility] Interpretation and review of laboratory results Abnormal [facility] No Panel InformationOrdered By: Jenni Calle on 03-02-2025 Interpretation and review of laboratory results Abnormal [facility] PROTIME-INRon 03-02-2025 INR Coag (PPP) [Relative time] 2.1 {INR} High 0.9-1.1 [facility] Comment on above: Performed By: #### X M #### [facility] (DEFAULT) [address] [place] [address] PT Coag (PPP) [Time] 23.0 s High 11.9-14.2 [facility] Comment on above: Performed By: #### X M #### [facility] (DEFAULT) [address] [place] [address] INR Coag (PPP) [Relative time] 1.9 {INR} High 0.9-1.1 [facility] Comment on above: Performed By: #### G EN #### [facility] (DEFAULT) [address] [place] [address] PT Coag (PPP) [Time] 21.4 s High 11.9-14.2 [facility] Comment on above: Performed By: #### G EN #### [facility] (DEFAULT) [address] [place] [address] PTTon 03-02-2025 aPTT Coag (Bld) [Time] 88.4 s High 24.0-34.3 [facility] Comment on above: Order Comment: After [...] Performed By: #### X M #### [facility] (DEFAULT) [address] [place] [address] aPTT Coag (Bld) [Time] 61.2 s High 24.0-34.3 [facility] Comment on above: Order Comment: After [...] Performed By: #### X M #### [facility] (DEFAULT) [address] [place] [address] aPTT Coag (Bld) [Time] 53.0 s High 24.0-34.3 [facility] Comment on above: Order Comment: After [...] medication administration instructions. Performed By: #### H [facility] #### [facility] (DEFAULT) [address] [place] [address] aPTT Coag (Bld) [Time] 130.2 s High 24.0-34.3 [facility] Comment on above: Performed By: #### G EN #### [facility] (DEFAULT) [address] [place] [address] TYPE AND SCREENon 03-02-2025 ABO/RH(D) TYPE Positive Normal [facility] Comment on above: Performed By: #### X M #### [facility] (DEFAULT) [address] [place] [address] Specimen Expiration 03/05/2025 05:08 Normal [facility] Comment on above: Performed By: #### X M #### [facility] (DEFAULT) [address] [place] [address] Laboratoryon 03-01-2025 Methicillin resistance mecA+mecC genes Molgen Ql (Islt/Spec) Detected Abnormal Not Detected [facility] Laboratory - Coagulationon 0 03-01-2025 aPTT Coag (PPP) [Time] 103.5 s High [facility] aPTT Coag (PPP) [Time] 57.2 s High [facility] Laboratory - CoagulationOrde red By: Flaquita Cook on 03-01-2025 aPTT Coag (PPP) [Time] 102.3 s High [facility] Laboratory - Microbiology an d Antimicrobial susceptibilityon 03-01-2025 C. albicans DNA RENETTA+non-probe Ql (Pos bld culture) Not detected Not Detected [facility] C. glabrata DNA RENETTA+non-probe Ql (Pos bld culture) Not detected Not Detected [facility] C. krusei DNA RENETTA+non-probe Ql (Pos bld culture) Not detected Not Detected [facility] C. parapsilosis DNA RENETTA+non-probe Ql (Pos bld culture) Not detected Not Detected [facility] C. tropicalis DNA RENETTA+non-probe Ql (Pos bld culture) Not detected Not Detected [facility] E. cloacae complex DNA RENETTA+non-probe Ql (Pos bld culture) Not detected Not Detected [facility] E. coli DNA RENETTA+non-probe Ql (Pos bld culture) Not detected Not Detected [facility] H. influenzae DNA RENETTA+non-probe Ql (Pos bld culture) Not detected Not Detected [facility] K. oxytoca DNA RENETTA+non-probe Ql (Pos bld culture) Not detected Not Detected [facility] L. monocytogenes DNA RENETTA+non-probe Ql (Pos bld culture) Not detected Not Detected [facility] N. meningitidis DNA RENETTA+non-probe Ql (Pos bld culture) Not detected Not Detected [facility] P. aeruginosa DNA RENETTA+non-probe Ql (Pos bld culture) Not detected Not Detected [facility] Proteus sp DNA RENETTA+non-probe Ql (Pos bld culture) Not detected Not Detected [facility] S. agalactiae DNA RENETTA+non-probe Ql (Pos bld culture) Not detected Not Detected [facility] S. aureus DNA RENETTA+non-probe Ql (Pos bld culture) Not detected Not Detected [facility] S. marcescens DNA RENETTA+non-probe Ql (Pos bld culture) Not detected Not Detected [facility] S. pneumoniae DNA RENETTA+non-probe Ql (Pos bld culture) Not detected Not Detected [facility] S. pyogenes DNA RENETTA+non-probe Ql (Pos bld culture) Not detected Not Detected [facility] Staphylococcus sp DNA RENETTA+non-probe Ql (Pos bld culture) Detected Abnormal Not Detected [facility] Streptococcus sp DNA RENETTA+non-probe Ql (Pos bld culture) Not detected Not Detected [facility] No Panel Informationon 03-01 Interpretation and review of laboratory results Abnormal [facility] Acinetobacter calcoaceticus-baumannii complex DNA Not detected Not Detected [facility] Bacteroides fragilis DNA Not detected Not Detected [facility] Marika auris DNA Not detected Not Detected [facility] Cryptococcus jaime/neoformans DNA Not detected Not Detected [facility] Enterobacterales DNA Not detected Not Detected [facility] Enterococcus faecalis DNA Not detected Not Detected [facility] Enterococcus faecium DNA Not detected Not Detected [facility] Interpretation and review of laboratory results Abnormal [facility] Klebsiella aerogenes DNA Not detected Not Detected [facility] Klebsiella pneumoniae group DNA Not detected Not Detected [facility] Salmonella species DNA Not detected Not Detecte d [facility] Staphylococcus epidermidis DNA Detected Abnormal Not Detected [facility] Staphylococcus lugdunensis DNA Not detected Not Detected [facility] Stenotrophomonas maltophilia DNA Not detected Not Detected [facility] Interpretation and review of laboratory results Abnormal [facility] No Panel InformationOrdered By: Flaquita Cook on 03-01-2025 Interpretation and review of laboratory results Abnormal [facility] PTTon 03-01-2025 aPTT Coag (Bld) [Time] 103.5 s High 24.0-34.3 [facility] Comment on above: Order Comment: After [...] instructions. Performed By: #### X M #### [facility] (DEFAULT) [address] [address] aPTT Coag (Bld) [Time] 102.3 s High 24.0-34.3 [facility] Comment on above: Order Comment: After [...] Performed By: #### S URGP #### [facility] (DEFAULT) [address] [address] aPTT Coag (Bld) [Time] 57.2 s High 24.0-34.3 [facility] Comment on above: Order Comment: After [...] Performed By: #### P TT #### [facility] (DEFAULT) [address] [address] BACTERIAL CULTURE AND DIRECT SMEAR, LESION, TISSUE, DEVICEon 02-28-2025 Bacteria identified Cx Nom (Unsp spec) NO GROWTH DAY 2 OF 2 Normal [facility] Comment on above: Performed By: #### G EN #### [facility] (DEFAULT) [address] [address] Microscopic observation Gram stain Nom (Unsp spec) [facility] Comment on above: Result Comment: Neut rophils, Light No organisms seen Performed By: #### G EN #### [facility] (DEFAULT) [address] [address] BLOOD CULTUREon 02-28-2025 Bacteria identified Cx Nom (Unsp spec) [facility] Comment on above: Order Comment: 2 Bot [...] aerobic/anaerobic blood culture bottle. Result Comment: Grow 4649 Methicillin Resistant Staphylococcus epidermidis The recovery of this organism(s) from a single blood culture most likely represents contamination during collection. Susceptibility testing will not be performed. Please evaluate carefully prior to initiation or continuation of microbial therapy. If further workup is needed, please contact the blood culture area at [phone] within 2 days. Performed By: #### X M #### [facility] (DEFAULT) [address] [place] [address] BLOOD CULTURE IDENTIFICATION PANELon 02-28-2025 Acinetobacter calcoaceticus-baumannii complex DNA Not detected Normal Not Detected [facility] Comment on above: Order Comment: [...] Performed By: #### X M #### [facility] (DEFAULT) [address] [address] Bacteroides fragilis DNA Not detected Normal Not Detected [facility] Comment on above: Order Comment: [...] findings. Performed By: #### X M #### [facility] (DEFAULT) [address] [place] [address] Marika albicans DNA Not detected Normal Not Detected [facility] Comment on above: Order Comment: [...] findings. Performed By: #### X M #### [facility] (DEFAULT) [address] [place] [id number] Marika auris DNA Not detected Normal Not Detected [facility] Comment on above: Order [...] Performed By: #### X M #### [facility] (DEFAULT) [address] [place] [address] Marika glabrata DNA Not detected Normal Not Detected [facility] Comment on above: Order Comment: [...] Performed By: #### X M #### [facility] (DEFAULT) [address] [place] [address] Marika krusei DNA Not detected Normal Not Detected [facility] Comment on above: Order Comment: 2 [...] Performed By: #### X M #### [facility] (DEFAULT) [address] [address] Marika parapsilosis DNA Not detected Normal Not Detected [facility] Comment on above: Order Comment: [...] Performed By: #### X M #### [facility] (DEFAULT) [address] [address] Marika tropicalis DNA Not detected Normal Not Detecte d [facility] Comment on above: Order Comment: [...] Performed By: #### X M #### [facility] (DEFAULT) [address] [address] Cryptococcus jaime/neoformans DNA Not detected Normal Not Detected [facility] Comment on above: Order Comment: [...] Performed By: #### X M #### [facility] (DEFAULT) [address] [place] [address] Enterobacter cloacae complex DNA Not detected Normal Not Detected [facility] Comment on above: Order Comment: [...] Performed By: #### X M #### [facility] (DEFAULT) [address] [place] [address] Enterobacterales DNA Not detected Normal Not Detected [facility] Comment on above: Order Comment: [...] findings. Performed By: #### X M #### [facility] (DEFAULT) [address] [address] Enterococcus faecalis DNA Not detected Normal Not Detected [facility] Comment on above: Order Comment: [...] Performed By: #### X M #### [facility] (DEFAULT) [address] [address] Enterococcus faecium DNA Not detected Normal Not Detected [facility] Comment on above: Order Comment: [...] Performed By: #### X M #### [facility] (DEFAULT) [address] [place] [address] Escherichia coli DNA Not detected Normal Not Detected [facility] Comment on above: Order Comment: [...] Performed By: #### X M #### [facility] (DEFAULT) [address] [place] [address] Haemophilus influenzae DNA Not detected Normal Not Detected [facility] Comment on above: Order Comment: [...] Performed By: #### X M #### [facility] (DEFAULT) [address] [address] Klebsiella aerogenes DNA Not detected Normal Not Detected [facility] Comment on above: Order Comment: [...] Performed By: #### X M #### [facility] (DEFAULT) [address] [address] Klebsiella oxytoca DNA Not detected Normal Not Detecte d [facility] Comment on above: Order Comment: [...] Performed By: #### X M #### [facility] (DEFAULT) [address] [place] [address] Klebsiella pneumoniae group DNA Not detected Normal Not Detected [facility] Comment on above: Order Comment: [...] Performed By: #### X M #### [facility] (DEFAULT) [address] [place] [address] Listeria monocytogenes DNA Not detected Normal Not Detected [facility] Comment on above: Order Comment: [...] Performed By: #### X M #### [facility] (DEFAULT) [address] [place] [address] mecA/C Detected Abnormal Not Detected [facility] Comment on above: Order Comment: [...] findings. Performed By: #### X M #### [facility] (DEFAULT) [address] [place] [address] Neisseria meningitidis DNA Not detected Normal Not Detected [facility] Comment on above: Order Comment: [...] findings. Performed By: #### X M #### [facility] (DEFAULT) [address] [place] [address] Proteus species DNA Not detected Normal Not Detected [facility] Comment on above: Order Comment: [...] findings. Performed By: #### X M #### [facility] (DEFAULT) [address] [address] Pseudomonas aeruginosa DNA Not detected Normal Not Detected [facility] Comment on above: Order Comment: [...] findings. Performed By: #### X M #### [facility] (DEFAULT) [address] [address] Salmonella species DNA Not detected Normal Not Detecte d [facility] Comment on above: Order Comment: [...] Performed By: #### X M #### [facility] (DEFAULT) [address] [address] Serratia marcescens DNA Not detected Normal Not Detect ed [facility] Comment on above: Order Comment: [...] Performed By: #### X M #### [facility] (DEFAULT) [address] [address] Staphylococcus aureus DNA Not detected Normal Not Detected [facility] Comment on above: Order Comment: [...] Performed By: #### X M #### [facility] (DEFAULT) [address] [address] Staphylococcus epidermidis DNA Detected Abnormal Not Detected [facility] Comment on above: Order Comment: [...] Performed By: #### X M #### [facility] (DEFAULT) [address] [place] [address] Staphylococcus lugdunensis DNA Not detected Normal Not Detected [facility] Comment on above: Order Comment: [...] Performed By: #### X M #### [facility] (DEFAULT) [address] [place] [address] Staphylococcus species DNA Detected Abnormal Not Detected [facility] Comment on above: Order Comment: [...] findings. Performed By: #### X M #### [facility] (DEFAULT) [address] [place] [address] Stenotrophomonas maltophilia DNA Not detected Normal Not Detected [facility] Comment on above: Order Comment: [...] findings. Performed By: #### X M #### [facility] (DEFAULT) [address] [address] Streptococcus agalactiae (Group B) DNA Not detected Normal Not Detected [facility] Comment on above: Order Comment: [...] Performed By: #### X M #### [facility] (DEFAULT) [address] [place] [address] Streptococcus pneumoniae DNA Not detected Normal Not Detected [facility] Comment on above: Order Comment: [...] findings. Performed By: #### X M #### [facility] (DEFAULT) [address] [place] [address] Streptococcus pyogenes (Group A) DNA Not detected Normal Not Detected [facility] Comment on above: Order Comment: [...] findings. Performed By: #### X M #### [facility] (DEFAULT) [address] [address] Streptococcus species DNA Not detected Normal Not Detected [facility] Comment on above: Order Comment: [...] findings. Performed By: #### X M #### [facility] (DEFAULT) [address] [address] CALCIUMon 02-28-2025 Calcium [Mass/Vol] 8.9 mg/dL Normal 8.6-10.5 [facility] Comment on above: Performed By: #### [facility] #### [facility] (DEFAULT) [address] [address] CBC,PLATELETSon 02-28-2025 Hematocrit (Bld) [Volume fraction] 31.0 % Low 39.6-48.8 [facility] Comment on above: Performed By: #### [facility] #### [facility] (DEFAULT) [address] [address] Hemoglobin (Bld) [Mass/Vol] 9.4 g/dL Low 13.4-16.8 [facility] Comment on above: Performed By: #### [facility] #### [facility] (DEFAULT) [address] [place] [address] MCV (RBC) [Entitic vol] 107.3 fL High 79.0-94.[address] [facility] Comment on above: Performed By: #### H EMOGC #### [facility] (DEFAULT) [address] [place] [address] Mean Cell Hgb 32.5 pg Normal 26.1-33.3 [facility] Comment on above: Performed By: #### H EMOGC #### [facility] (DEFAULT) [address] [address] Mean Cell Hgb Conc 30.3 g/dL Low 31.9-36.5 [facility] Comment on above: Performed By: #### H EMOGC #### [facility] (DEFAULT) [address] [place] [address] Platelet mean volume (Bld) [Entitic vol] 9.7 fL Normal 8.7-12.3 [facility] Comment on above: Performed By: #### H EMOGC #### [facility] (DEFAULT) [address] [address] Platelets (Bld) [#/Vol] 220 10*3/uL Normal 146-337 [facility] Comment on above: Performed By: #### H EMOGC #### [facility] (DEFAULT) [address] [address] RBC (Bld) [#/Vol] 2.89 10*6/uL Low 4.38-5.83 [facility] Comment on above: Performed By: #### H EMOGC #### [facility] (DEFAULT) [address] [address] RBC Distribution 17.6 % High 10.9-14.3 [facility] Comment on above: Performed By: #### H EMOGC #### [facility] (DEFAULT) [address] [place] [address] WBC (Bld) [#/Vol] 6.86 10*3/uL Normal 3.73-10.10 [facility] Comment on above: Performed By: #### [facility] #### [facility] (DEFAULT) [address] [place] [address] CHEM 7 (LYTES,BUN,CREA,GLUC) on 02-28-2025 Anion gap [Moles/Vol] 19 mmol/L High 7-17 [facility] Comment on above: Performed By: #### [facility] #### [facility] (DEFAULT) [address] [place] [address] Chloride [Moles/Vol] 101 mmol/L Normal 98-108 [facility] Comment on above: Performed By: #### [facility] #### [facility] (DEFAULT) [address] [place] [address] CO2 [Moles/Vol] 25 mmol/L Normal 21-31 [facility] Comment on above: Performed By: #### [facility] #### [facility] (DEFAULT) [address] [place] [address] Creatinine [Mass/Vol] 6.59 mg/dL High 0.70-1.30 [facility] Comment on above: Performed By: #### [facility] #### [facility] (DEFAULT) [address] [place] [address] GFR/1.73 sq M.predicted among non-blacks MDRD (S/P/Bld) [Vol rate/Area] 8 mL/min/{1.73_m2} Low >=60 [facility] Comment on above: Result Comment: Repo rted eGFR is based on the CKD-EPI 2020 equation using creatinine, age, and sex. Performed By: #### [facility] #### [facility] (DEFAULT) [address] [place] [address] Glucose [Mass/Vol] 114 mg/dL Normal Nonfastin -179 mg/dL; Fastin-99 [facility] Comment on above: Performed By: #### [facility] #### [facility] (DEFAULT) [address] [place] [address] Osmolality [Osmolality] 303 mosm/kg Normal 278-305 [facility] Comment on above: Performed By: #### H EMOGC #### [facility] (DEFAULT) [address] [place] [address] Potassium [Moles/Vol] 4.5 mmol/L Normal 3.5-5.0 [facility] Comment on above: Performed By: #### H EMOGC #### [facility] (DEFAULT) [address] [place] [address] Sodium [Moles/Vol] 140 mmol/L Normal 135-145 [facility] Comment on above: Performed By: #### H EMOGC #### [facility] (DEFAULT) [address] [place] [address] Urea nitrogen [Mass/Vol] 36 mg/dL High 7-25 [facility] Comment on above: Performed By: #### H EMOGC #### [facility] (DEFAULT) [address] [place] [address] Urea nitrogen/Creatinine [Mass ratio] 5 mg/mg Normal [facility] Comment on above: Performed By: #### H EMOGC #### [facility] (DEFAULT) [address] [place] [address] Laboratory - Chemistry and C hemistry - challengeon 02-28-2025 Anion gap [Moles/Vol] 19 mmol/L High 7 - 17 mmol/L [facility] Chloride [Moles/Vol] 101 mmol/L 98 - 10 8 mmol/L [facility] CO2 [Moles/Vol] 25 mmol/L 21 - 31 mmol/L [facility] Creatinine [Mass/Vol] 6.59 mg/dL High 0.70 - 1.30 mg/dL [facility] Glucose [Mass/Vol] 114 mg/dL 70 - 179 mg/dL [facility] Magnesium [Mass/Vol] 1.9 mg/dL 1.6 - 2 .6 mg/dL [facility] Osmolality Calc [Osmolality] 303 [facility] Phosphate [Mass/Vol] 4.7 mg/dL High 2.2 - 4 .6 mg/dL [facility] Potassium [Moles/Vol] 4.5 mmol/L 3.5 - 5.0 mmol/L [facility] Sodium [Moles/Vol] 140 mmol/L 135 - 145 mmol/L [facility] Urea nitrogen [Mass/Vol] 36 mg/dL High 7 - 25 mg/dL [facility] Urea nitrogen/Creatinine [Mass ratio] 5 mg/mg [facility] Calcium [Mass/Vol] 8.9 mg/dL 8.6 - 10. 5 mg/dL [facility] Laboratory - Coagulationon 0 02-28-2025 aPTT Coag (PPP) [Time] 73.8 s High [facility] INR Coag (Bld) [Relative time] 1.5 {INR} High 0.9 - 1.1 [facility] PT Coag (PPP) [Time] 17.9 s [facility] aPTT Coag (PPP) [Time] 82.1 s High [facility] aPTT Coag (PPP) [Time] 101.1 s High [facility] INR Coag (Bld) [Relative time] 1.5 {INR} High 0.9 - 1.1 [facility] PT Coag (PPP) [Time] 17.8 s High [facility] - CoagulationOrde red By: Mindi Abbott on 02-28-2025 aPTT Coag (PPP) [Time] 87.5 s High [facility] Laboratory - Hematology and Cell countson 02-28-2025 Erythrocyte distribution width (RBC) [Ratio] 17.6 % High 10.9 - 14.3 % [facility] Hematocrit (Bld) [Volume fraction] 31 % Low 39.6 - 48.8 % [facility] Hemoglobin (Bld) [Mass/Vol] 9.4 g/dL Low 13.4 - 16.8 g/dL [facility] MCH (RBC) [Entitic mass] 32.5 pg 26.1 - 33.3 pg [facility] MCHC (RBC) [Mass/Vol] 30.3 g/dL Low 31.9 - 36.5 g/dL [facility] MCV (RBC) [Entitic vol] 107.3 fL High 79.0 - 94.5 fL [facility] Platelet mean volume (Bld) [Entitic vol] 9.7 fL 8.7 - 12.3 fL [facility] Platelets (Bld) [#/Vol] 220 10*3/uL 146 - 337 K/uL [facility] RBC (Bld) [#/Vol] 2.89 10*6/uL Low [facility] WBC (Bld) [#/Vol] 6.86 10*3/uL 3.73 - 10. 10 K/uL [facility] MAGNESIUMon 02-28-2025 Magnesium [Mass/Vol] 1.9 mg/dL Normal 1.6-2.6 [facility] Comment on above: Performed By: #### [facility] #### [facility] (DEFAULT) [address] [place] [address] No Panel Informationon 02-28 Interpretation and review of laboratory results Abnormal [facility] Interpretation and review of laboratory results Abnormal [facility] Interpretation and review of laboratory results Abnormal [facility] Interpretation and review of laboratory results Abnormal [facility] Interpretation and review of laboratory results Abnormal [facility] eGFR, CKD-EPI, Male 8 Low - PINF [facility] Interpretation and review of laboratory results Abnormal [facility] Interpretation and review of laboratory results Normal [facility] Interpretation and review of laboratory results Abnormal [facility] Radiology Study observation [facility]narrative) [facility] No Panel InformationOrdered By: Mindi Abbott on 02-28-2025 Interpretation and review of laboratory results Abnormal [facility] PHOSPHATE, INORGANICon 02-28 Phosphorous 4.7 mg/dL High 2.2-4.6 [facility] Comment on above: Performed By: #### H EMOGC #### [facility] (DEFAULT) [address] [place] [address] PROTIME-INRon 02-28-2025 INR Coag (PPP) [Relative time] 1.5 {INR} High 0.9-1.1 [facility] Comment on above: Performed By: #### P TI, PTT ####[facility] (DEFAULT)[address] [place] [address] PT Coag (PPP) [Time] 17.9 s High 11.9-14.2 [facility] Comment on above: Performed By: #### P TI, PTT ####[facility] (DEFAULT)[address] [place] [address] INR Coag (PPP) [Relative time] 1.5 {INR} High 0.9-1.1 [facility] Comment on above: Performed By: #### X M #### [facility] (DEFAULT) [address] [place] [address] PT Coag (PPP) [Time] 17.8 s High 11.9-14.2 [facility] Comment on above: Performed By: #### X M #### [facility] (DEFAULT) [address] [place] [address] PTTon 02-28-2025 aPTT Coag (Bld) [Time] 73.8 s High 24.0-34.3 [facility] Comment on above: Order Comment: After [...] Performed By: #### P TI, PTT ####[facility] (DEFAULT)[address] [address] aPTT Coag (Bld) [Time] 82.1 s High 24.0-34.3 [facility] Comment on above: Order Comment: After [...] Performed By: #### G EN #### [facility] (DEFAULT) [address] [address] aPTT Coag (Bld) [Time] 101.1 s High 24.0-34.3 [facility] Comment on above: Order Comment: After [...] Performed By: #### X M #### [facility] (DEFAULT) [address] [address] aPTT Coag (Bld) [Time] 87.5 s High 24.0-34.3 [facility] Comment on above: Order Comment: After [...] instructions. Performed By: #### X M #### [facility] (DEFAULT) [address] [place] [address] Laboratory - CoagulationOrde red By: Sagrario Schulte on 2025 aPTT Coag (PPP) [Time] 66.9 s High [facility] Laboratory - CoagulationOrde red By: Kaylin Arthur on 2025 aPTT Coag (PPP) [Time] 97.6 s High [facility] Laboratory - Coagulationon 0 2025 aPTT Coag (PPP) [Time] 64.8 s High [facility] INR Coag (Bld) [Relative time] 1.5 {INR} High 0.9 - 1.1 [facility] PT Coag (PPP) [Time] 17.6 s High [facility] No Panel InformationOrdered By: Sagrario Schulte on 2025 Interpretation and review of laboratory results Abnormal [facility] No Panel InformationOrdered By: Kaylin Arthur on 2025 Interpretation and review of laboratory results Abnormal [facility] No Panel Informationon 02-27 ABO/RH(D) TYPE Positive [facility] Specimen Expiration 03/02/2025 04:16 [facility] Interpretation and review of laboratory results Abnormal [facility] Interpretation and review of laboratory results Abnormal [facility] PROTIME-INRon 2025 INR Coag (PPP) [Relative time] 1.5 {INR} High 0.9-1.1 [facility] Comment on above: Performed By: #### X M #### [facility] (DEFAULT) [address] [place] [address] PT Coag (PPP) [Time] 17.6 s High 11.9-14.2 [facility] Comment on above: Performed By: #### X M #### [facility] (DEFAULT) [address] [place] [address] PTTon 2025 aPTT Coag (Bld) [Time] 66.9 s High 24.0-34.3 [facility] Comment on above: Order Comment: After [...] instructions. Performed By: #### X M #### [facility] (DEFAULT) [address] [place] [address] aPTT Coag (Bld) [Time] 97.6 s High 24.0-34.3 [facility] Comment on above: Order Comment: After [...] instructions. Performed By: #### P TT ####[facility] (DEFAULT)[address] [place] [address] aPTT Coag (Bld) [Time] 64.8 s High 24.0-34.3 [facility] Comment on above: Order Comment: After [...] instructions. Performed By: #### X M #### [facility] (DEFAULT) [address] [address] TYPE AND SCREENon 2025 ABO/RH(D) TYPE Positive [facility] Comment on above: Performed By: #### X M #### [facility] (DEFAULT) [address] [address] Specimen Expiration 03/02/2025 04:16 [facility] Comment on above: Performed By: #### X M #### [facility] (DEFAULT) [address] [address] Laboratory - Chemistry and C hemistry - challengeon 02-26-2025 Anion gap [Moles/Vol] 17 mmol/L 7 - 17 mmol/L [facility] Calcium [Mass/Vol] 8.7 mg/dL 8.6 - 10. 5 mg/dL [facility] Chloride [Moles/Vol] 98 mmol/L 98 - 10 8 mmol/L [facility] CO2 [Moles/Vol] 26 mmol/L 21 - 31 mmol/L [facility] Creatinine [Mass/Vol] 4.82 mg/dL High 0.70 - 1.30 mg/dL [facility] Glucose [Mass/Vol] 91 mg/dL 70 - 179 mg/dL [facility] Magnesium [Mass/Vol] 1.8 mg/dL 1.6 - 2 .6 mg/dL [facility] Osmolality Calc [Osmolality] 291 [facility] Phosphate [Mass/Vol] 4.3 mg/dL 2.2 - 4 .6 mg/dL [facility] Potassium [Moles/Vol] 4.4 mmol/L 3.5 - 5.0 mmol/L [facility] Sodium [Moles/Vol] 137 mmol/L 135 - 145 mmol/L [facility] Urea nitrogen [Mass/Vol] 22 mg/dL 7 - 25 mg/dL [facility] Urea nitrogen/Creatinine [Mass ratio] 5 mg/mg [facility] Laboratory - Coagulationon 0 02-26-2025 aPTT Coag (PPP) [Time] 95 s High [facility] aPTT Coag (PPP) [Time] 93.8 s High [facility] INR Coag (Bld) [Relative time] 1.4 {INR} High 0.9 - 1.1 [facility] PT Coag (PPP) [Time] 16.9 s High [facility] Laboratory - Hematology and Cell countson 02-26-2025 Erythrocyte distribution width (RBC) [Ratio] 18.1 % High 10.9 - 14.3 % [facility] Hematocrit (Bld) [Volume fraction] 28 % Low 39.6 - 48.8 % [facility] Hemoglobin (Bld) [Mass/Vol] 8.5 g/dL Low 13.4 - 16.8 g/dL [facility] MCH (RBC) [Entitic mass] 33.1 pg 26.1 - 33.3 pg [facility] MCHC (RBC) [Mass/Vol] 30.4 g/dL Low 31.9 - 36.5 g/dL [facility] MCV (RBC) [Entitic vol] 108.9 fL High 79.0 - 94.5 fL [facility] Platelet mean volume (Bld) [Entitic vol] 10.1 fL 8.7 - 12.3 fL [facility] Platelets (Bld) [#/Vol] 175 10*3/uL 146 - 337 K/uL [facility] RBC (Bld) [#/Vol] 2.57 10*6/uL Low [facility] WBC (Bld) [#/Vol] 5.9 10*3/uL 3.73 - 10. 10 K/uL [facility] No Panel Informationon 02-26 Interpretation and review of laboratory results Abnormal [facility] Interpretation and review of laboratory results Abnormal [facility] Interpretation and review of laboratory results Abnormal [facility] eGFR, CKD-EPI, Male 12 Low - PINF [facility] Interpretation and review of laboratory results Abnormal [facility] Interpretation and review of laboratory results Normal [facility] Interpretation and review of laboratory results Abnormal [facility] PTTon 02-26-2025 aPTT Coag (Bld) [Time] 95.0 s High 24.0-34.3 [facility] Comment on above: Order Comment: After [...] instructions. Performed By: #### S URGP #### [facility] (DEFAULT) [address] [place] [address] CALCIUMon 02-25-2025 Calcium [Mass/Vol] 8.7 mg/dL Normal 8.6-10.5 [facility] Comment on above: Performed By: #### X M #### [facility] (DEFAULT) [address] [place] [address]646 CBC,PLATELETSon 02-25-2025 Hematocrit (Bld) [Volume fraction] 28.0 % Low 39.6-48.8 [facility] Comment on above: Performed By: #### X M #### [facility] (DEFAULT) [address] [place] [address] 28768 Hemoglobin (Bld) [Mass/Vol] 8.5 g/dL Low 13.4-16.8 [facility] Comment on above: Performed By: #### X M #### [facility] (DEFAULT) [address] [place] [address] 06320 MCV (RBC) [Entitic vol] 108.9 fL High 79.0-94.5 [facility] Comment on above: Performed By: #### X M #### [facility] (DEFAULT) [address] [place] [address] 21905 Mean Cell Hgb 33.1 pg Normal 26.1-33.3 [facility] Comment on above: Performed By: #### X M #### [facility] (DEFAULT) [address] [address] Mean Cell Hgb Conc 30.4 g/dL Low 31.9-36.5 [facility] Comment on above: Performed By: #### X M #### [facility] (DEFAULT) [address] [place] [address] 29323 Platelet mean volume (Bld) [Entitic vol] 10.1 fL Normal 8.7-12.3 [facility] Comment on above: Performed By: #### X M #### [facility] (DEFAULT) [address] [address] Platelets (Bld) [#/Vol] 175 10*3/uL Normal 146-337 [facility] Comment on above: Performed By: #### X M #### [facility] (DEFAULT) [address] [place] [address] 44959 RBC (Bld) [#/Vol] 2.57 10*6/uL Low 4.38-5.83 [facility] Comment on above: Performed By: #### X M #### [facility] (DEFAULT) [address] [place] [address] 48780 RBC Distribution 18.1 % High 10.9-14.3 [facility] Comment on above: Performed By: #### X M #### [facility] (DEFAULT) [address] [place] [address] 69065 WBC (Bld) [#/Vol] 5.90 10*3/uL Normal 3.73-10.10 [facility] Comment on above: Performed By: #### X M #### [facility] (DEFAULT) [address] [place] [address] 62197 CHEM 7 (LYTES,BUN,CREA,GLUC) on 02-25-2025 Anion gap [Moles/Vol] 17 mmol/L Normal 7-17 [facility] Comment on above: Performed By: #### X M #### [facility] (DEFAULT) [address] [place] [address] 21249 Chloride [Moles/Vol] 98 mmol/L Normal 98-108 [facility] Comment on above: Performed By: #### X M #### [facility] (DEFAULT) [address] [place] [address] 12606 CO2 [Moles/Vol] 26 mmol/L Normal 21-31 [facility] Comment on above: Performed By: #### X M #### [facility] (DEFAULT) [address] [place] [address] 37801 Creatinine [Mass/Vol] 4.82 mg/dL High 0.70-1.30 [facility] Comment on above: Performed By: #### X M #### [facility] (DEFAULT) [address] [place] [address] 47014 GFR/1.73 sq M.predicted among non-blacks MDRD (S/P/Bld) [Vol rate/Area] 12 mL/min/{1.73_m2} Low >=60 [facility] Comment on above: Result Comment: Repo rted eGFR is based on the CKD-EPI 2020 equation using creatinine, age, and sex. Performed By: #### X M #### [facility] (DEFAULT) [address] [place] [address] 27821 Glucose [Mass/Vol] 91 mg/dL Normal Nonfastin -179 mg/dL; Fastin-99 [facility] Comment on above: Performed By: #### X M #### [facility] (DEFAULT) [address] [place] [address] 78477 Osmolality [Osmolality] 291 mosm/kg Normal 278-305 [facility] Comment on above: Performed By: #### X M #### [facility] (DEFAULT) [address] [place] [address] 15883 Potassium [Moles/Vol] 4.4 mmol/L Normal 3.5-5.0 [facility] Comment on above: Performed By: #### X M #### [facility] (DEFAULT) [address] [place] [address] 13748 Sodium [Moles/Vol] 137 mmol/L Normal 135-145 [facility] Comment on above: Performed By: #### X M #### [facility] (DEFAULT) [address] [place] [address] 86091 Urea nitrogen [Mass/Vol] 22 mg/dL Normal 7-25 [facility] Comment on above: Performed By: #### X M #### [facility] (DEFAULT) [address] [place] [address] 29585 Urea nitrogen/Creatinine [Mass ratio] 5 mg/mg Normal [facility] Comment on above: Performed By: #### X M #### [facility] (DEFAULT) [address] [place] [address] 92609 Laboratory - Coagulationon 0 02-25-2025 aPTT Coag (PPP) [Time] 79.7 s High [facility] MAGNESIUMon 02-25-2025 Magnesium [Mass/Vol] 1.8 mg/dL Normal 1.6-2.6 [facility] Comment on above: Performed By: #### X M #### [facility] (DEFAULT) [address] [place] [address] 32930 No Panel Informationon 02-25 Interpretation and review of laboratory results Abnormal [facility] PHOSPHATE, INORGANICon 02-25 Phosphorous 4.3 mg/dL Normal 2.2-4.6 [facility] Comment on above: Performed By: #### X M #### [facility] (DEFAULT) [address] [place] [address] 63807 PROTIME-INRon 02-25-2025 INR Coag (PPP) [Relative time] 1.4 {INR} High 0.9-1.1 [facility] Comment on above: Performed By: #### P TI, PTT ####[facility] (DEFAULT)[address] [place] [address] 61025 PT Coag (PPP) [Time] 16.9 s High 11.9-14.2 [facility] Comment on above: Performed By: #### P TI, PTT ####[facility] (DEFAULT)[address] [place] [address] 61108 PTTon 02-25-2025 aPTT Coag (Bld) [Time] 93.8 s High 24.0-34.3 [facility] Comment on above: Order Comment: After [...] Performed By: #### P TI, PTT ####[facility] (DEFAULT)[address] [place] [address] 67639 aPTT Coag (Bld) [Time] 79.7 s High 24.0-34.3 [facility] Comment on above: Order Comment: After [...] Performed By: #### X M #### [facility] (DEFAULT) [address] [place] [address] 86617 CALCIUMon 02-24-2025 Calcium [Mass/Vol] 8.6 mg/dL Normal 8.6-10.5 [facility] Comment on above: Performed By: #### X M #### [facility] (DEFAULT) [address] [place] [address] 58939 CBC,PLATELETSon 02-24-2025 Hematocrit (Bld) [Volume fraction] 28.9 % Low 39.6-48.8 [facility] Comment on above: Performed By: #### X M #### [facility] (DEFAULT) [address] [place] [address] 39423 Hemoglobin (Bld) [Mass/Vol] 8.8 g/dL Low 13.4-16.8 [facility] Comment on above: Performed By: #### X M #### [facility] (DEFAULT) [address] [address]10 MCV (RBC) [Entitic vol] 108.6 fL High 79.0-94.5 [facility] Comment on above: Performed By: #### X M #### [facility] (DEFAULT) [address] [place] [address] 40726 Mean Cell Hgb 33.1 pg Normal 26.1-33.3 [facility] Comment on above: Performed By: #### X M #### [facility] (DEFAULT) [address] [address] Mean Cell Hgb Conc 30.4 g/dL Low 31.9-36.5 [facility] Comment on above: Performed By: #### X M #### [facility] (DEFAULT) [address] [place] [address] 19854 Platelet mean volume (Bld) [Entitic vol] 10.4 fL Normal 8.7-12.3 [facility] Comment on above: Performed By: #### X M #### [facility] (DEFAULT) [address] [address] Platelets (Bld) [#/Vol] 159 10*3/uL Normal 146-337 [facility] Comment on above: Performed By: #### X M #### [facility] (DEFAULT) [address] [address] RBC (Bld) [#/Vol] 2.66 10*6/uL Low 4.38-5.83 [facility] Comment on above: Performed By: #### X M #### [facility] (DEFAULT) [address] 55873 RBC Distribution 18.4 % High 10.9-14.3 [facility] Comment on above: Performed By: #### X M #### [facility] (DEFAULT) [address] [place] [address] 43014 WBC (Bld) [#/Vol] 6.26 10*3/uL Normal 3.73-10.10 [facility] Comment on above: Performed By: #### X M #### [facility] (DEFAULT) [address] [address]592 CHEM 7 (LYTES,BUN,CREA,GLUC) on 02-24-2025 Anion gap [Moles/Vol] 17 mmol/L Normal 7-17 [facility] Comment on above: Performed By: #### X M #### [facility] (DEFAULT) [address] [place] [address] 89836 Chloride [Moles/Vol] 99 mmol/L Normal 98-108 [facility] Comment on above: Performed By: #### X M #### [facility] (DEFAULT) [address] [place] [address] 96992 CO2 [Moles/Vol] 27 mmol/L Normal 21-31 [facility] Comment on above: Performed By: #### X M #### [facility] (DEFAULT) [address] [place] [address] 99885 Creatinine [Mass/Vol] 3.74 mg/dL High 0.70-1.30 [facility] Comment on above: Performed By: #### X M #### [facility] (DEFAULT) [address] [place] [address] 74915 GFR/1.73 sq M.predicted among non-blacks MDRD (S/P/Bld) [Vol rate/Area] 16 mL/min/{1.73_m2} Low >=60 [facility] Comment on above: Result Comment: Repo rted eGFR is based on the CKD-EPI 2020 equation using creatinine, age, and sex. Performed By: #### X M #### [facility] (DEFAULT) [address] [place] [address] 77368 Glucose [Mass/Vol] 81 mg/dL Normal Nonfastin -179 mg/dL; Fastin-99 [facility] Comment on above: Performed By: #### X M #### [facility] (DEFAULT) [address] [address] Osmolality [Osmolality] 291 mosm/kg Normal 278-305 [facility] Comment on above: Performed By: #### X M #### [facility] (DEFAULT) [address] [place] [address] 91076 Potassium [Moles/Vol] 4.0 mmol/L Normal 3.5-5.0 [facility] Comment on above: Performed By: #### X M #### [facility] (DEFAULT) [address] [address] Sodium [Moles/Vol] 139 mmol/L Normal 135-145 [facility] Comment on above: Performed By: #### X M #### [facility] (DEFAULT) [address] [address] Urea nitrogen [Mass/Vol] 17 mg/dL Normal 7-25 [facility] Comment on above: Performed By: #### X M #### [facility] (DEFAULT) [address] [address] Urea nitrogen/Creatinine [Mass ratio] 5 mg/mg Normal [facility] Comment on above: Performed By: #### X M #### [facility] (DEFAULT) [address] [address] Laboratory - Chemistry and C hemistry - challengeon 02-24-2025 Anion gap [Moles/Vol] 17 mmol/L 7 - 17 mmol/L [facility] Chloride [Moles/Vol] 99 mmol/L 98 - 10 8 mmol/L [facility] CO2 [Moles/Vol] 27 mmol/L 21 - 31 mmol/L [facility] Creatinine [Mass/Vol] 3.74 mg/dL High 0.70 - 1.30 mg/dL [facility] Glucose [Mass/Vol] 81 mg/dL 70 - 179 mg/dL [facility] Osmolality Calc [Osmolality] 291 [facility] Potassium [Moles/Vol] 4 mmol/L 3.5 - 5.0 mmol/L [facility] Sodium [Moles/Vol] 139 mmol/L 135 - 145 mmol/L [facility] Urea nitrogen [Mass/Vol] 17 mg/dL 7 - 25 mg/dL [facility] Urea nitrogen/Creatinine [Mass ratio] 5 mg[facility] Calcium [Mass/Vol] 8.6 mg/dL 8.6 - 10. 5 mg/dL [facility] Magnesium [Mass/Vol] 1.8 mg/dL 1.6 - 2 .6 mg/dL [facility] Phosphate [Mass/Vol] 2.8 mg/dL 2.2 - 4 .6 mg/dL [facility] Laboratory - Coagulationon 0 02-24-2025 aPTT Coag (PPP) [Time] 94.4 s High [facility] INR Coag (Bld) [Relative time] 1.3 {INR} High 0.9 - 1.1 [facility] PT Coag (PPP) [Time] 15.8 s High [facility] aPTT Coag (PPP) [Time] 75.1 s High [facility] aPTT Coag (PPP) [Time] 81.3 s High [facility] INR Coag (Bld) [Relative time] 1.2 {INR} High 0.9 - 1.1 [facility] PT Coag (PPP) [Time] 15.5 s [facility] aPTT Coag (PPP) [Time] 76.4 s High [facility] Laboratory - Hematology and Cell countson 02-24-2025 Erythrocyte distribution width (RBC) [Ratio] 18.4 % High 10.9 - 14.3 % [facility] Hematocrit (Bld) [Volume fraction] 28.9 % Low 39.6 - 48.8 % [facility] Hemoglobin (Bld) [Mass/Vol] 8.8 g/dL Low 13.4 - 16.8 g/dL [facility] MCH (RBC) [Entitic mass] 33.1 pg 26.1 - 33.3 pg [facility] MCHC (RBC) [Mass/Vol] 30.4 g/dL Low 31.9 - 36.5 g/dL [facility] MCV (RBC) [Entitic vol] 108.6 fL High 79.0 - 94.5 fL [facility] Platelet mean volume (Bld) [Entitic vol] 10.4 fL 8.7 - 12.3 fL [facility] Platelets (Bld) [#/Vol] 159 10*3/uL 146 - 337 K/uL [facility] RBC (Bld) [#/Vol] 2.66 10*6/uL Low [facility] WBC (Bld) [#/Vol] 6.26 10*3/uL 3.73 - 10. 10 K/uL [facility] MAGNESIUMon 02-24-2025 Magnesium [Mass/Vol] 1.8 mg/dL Normal 1.6-2.6 [facility] Comment on above: Performed By: #### X M #### [facility] (DEFAULT) [address] [address] No Panel Informationon 02-24 Interpretation and review of laboratory results Abnormal [facility] Interpretation and review of laboratory results Abnormal [facility] Interpretation and review of laboratory results Abnormal [facility] Interpretation and review of laboratory results Abnormal [facility] Interpretation and review of laboratory results Abnormal [facility] ABO/RH(D) TYPE Positive [facility] Specimen Expiration 2025 07:14 [facility] eGFR, CKD-EPI, Male 16 Low - PINF [facility] Interpretation and review of laboratory results Abnormal [facility] Interpretation and review of laboratory results Normal [facility] Interpretation and review of laboratory results Abnormal [facility] Interpretation and review of laboratory results Abnormal [facility] PHOSPHATE, INORGANICon 02-24 Phosphorous 2.8 mg/dL Normal 2.2-4.6 [facility] Comment on above: Performed By: #### X M #### [facility] (DEFAULT) [address] [place] [address] 59542 PROTIME-INRon 02-24-2025 INR Coag (PPP) [Relative time] 1.3 {INR} High 0.9-1.1 [facility] Comment on above: Performed By: #### X M #### [facility] (DEFAULT) [address] [place] [address] 45347 PT Coag (PPP) [Time] 15.8 s High 11.9-14.2 [facility] Comment on above: Performed By: #### X M #### [facility] (DEFAULT) [address] [place] [address] 85969 INR Coag (PPP) [Relative time] 1.2 {INR} High 0.9-1.1 [facility] Comment on above: Performed By: #### X M #### [facility] (DEFAULT) [address] [place] [address] 44121 PT Coag (PPP) [Time] 15.5 s High 11.9-14.2 [facility] Comment on above: Performed By: #### X M #### [facility] (DEFAULT) [address] [place] [address] 02095 PTTon 02-24-2025 aPTT Coag (Bld) [Time] 94.4 s High 24.0-34.3 [facility] Comment on above: Order Comment: After [...] Performed By: #### X M #### [facility] (DEFAULT) [address] [place] [address] 12151 aPTT Coag (Bld) [Time] 75.1 s High 24.0-34.3 [facility] Comment on above: Order Comment: After [...] Performed By: #### X M #### [facility] (DEFAULT) [address] [address] aPTT Coag (Bld) [Time] 81.3 s High 24.0-34.3 [facility] Comment on above: Order Comment: After [...] Performed By: #### X M #### [facility] (DEFAULT) [address] [address] TYPE AND SCREENon 02-24-2025 ABO/RH(D) TYPE Positive Normal [facility] Comment on above: Performed By: #### X M #### [facility] (DEFAULT) [address] [address] Specimen Expiration 2025 07:14 [facility] Comment on above: Performed By: #### X M #### [facility] (DEFAULT) [address] [address] Laboratory - CoagulationOrde red By: Yocasta Day on 02-23-2025 aPTT Coag (PPP) [Time] 140 s High [facility] Laboratory - CoagulationOrde red By: Lexis Chase on 02-23-2025 aPTT Coag (PPP) [Time] 97.4 s High [facility] Laboratory - Coagulationon 0 02-23-2025 aPTT Coag (PPP) [Time] 41.8 s High [facility] INR Coag (Bld) [Relative time] 1.1 {INR} 0.9 - 1.1 [facility] PT Coag (PPP) [Time] 14.5 s High [facility] No Panel InformationOrdered By: Yocasta Day on 02-23-2025 Interpretation and review of laboratory results Abnormal [facility] No Panel InformationOrdered By: Lexis Chase on 02-23-2025 Interpretation and review of laboratory results Abnormal [facility] No Panel Informationon 02-23 Interpretation and review of laboratory results Abnormal [facility] Interpretation and review of laboratory results Abnormal [facility] PROTIME-INRon 02-23-2025 INR Coag (PPP) [Relative time] 1.1 {INR} Normal 0.9-1.1 [facility] Comment on above: Performed By: #### X M #### [facility] (DEFAULT) [address] [place] [address] 26121 PT Coag (PPP) [Time] 14.5 s High 11.9-14.2 [facility] Comment on above: Performed By: #### X M #### [facility] (DEFAULT) [address] [place] [address] PTTon 02-23-2025 aPTT Coag (Bld) [Time] 76.4 s High 24.0-34.3 [facility] Comment on above: Order Comment: After [...] Performed By: #### X M #### [facility] (DEFAULT) [address] [address] aPTT Coag (Bld) [Time] 140.0 s High 24.0-34.3 [facility] Comment on above: Order Comment: After [...] instructions. Performed By: #### P TT #### [facility] (DEFAULT) [address] [address] aPTT Coag (Bld) [Time] 97.4 s High 24.0-34.3 [facility] Comment on above: Order Comment: After [...] Performed By: #### X M #### [facility] (DEFAULT) [address] [address] aPTT Coag (Bld) [Time] 41.8 s High 24.0-34.3 [facility] Comment on above: Order Comment: After [...] instructions. Performed By: #### X M #### [facility] (DEFAULT) [address] [place] [address] 47116 Laboratory - Coagulationon 0 02-22-2025 aPTT Coag (PPP) [Time] 93.6 s High [facility] aPTT Coag (PPP) [Time] 49.7 s High [facility] INR Coag (Bld) [Relative time] 1.1 {INR} 0.9 - 1.1 [facility] PT Coag (PPP) [Time] 14.2 s [facility] Laboratory - CoagulationOrde red By: Isidra Donnelly on 02-22-2025 aPTT Coag (PPP) [Time] 74 s High [facility] No Panel Informationon 02-22 Interpretation and review of laboratory results Abnormal [facility] Interpretation and review of laboratory results Abnormal [facility] Interpretation and review of laboratory results Normal [facility] No Panel InformationOrdered By: Isidra Donnelly on 02-22-2025 Interpretation and review of laboratory results Abnormal [facility] PROTIME-INRon 02-22-2025 INR Coag (PPP) [Relative time] 1.1 {INR} Normal 0.9-1.1 [facility] Comment on above: Performed By: #### X M #### [facility] (DEFAULT) [address] [place] [address] 83238 PT Coag (PPP) [Time] 14.2 s Normal 11.9-14.2 [facility] Comment on above: Performed By: #### X M #### [facility] (DEFAULT) [address] [address] PTTon 02-22-2025 aPTT Coag (Bld) [Time] 93.6 s High 24.0-34.3 [facility] Comment on above: Order Comment: After [...] instructions. Performed By: #### P TT #### [facility] (DEFAULT) [address] [place] [address] 81504 aPTT Coag (Bld) [Time] 74.0 s High 24.0-34.3 [facility] Comment on above: Order Comment: After [...] instructions. Performed By: #### X M #### [facility] (DEFAULT) [address] [address] aPTT Coag (Bld) [Time] 49.7 s High 24.0-34.3 [facility] Comment on above: Order Comment: After [...] instructions. Performed By: #### X M #### [facility] (DEFAULT) [address] [place] [address] 90035 CALCIUMon 02-21-2025 Calcium [Mass/Vol] 8.3 mg/dL Low 8.6-10.5 [facility] Comment on above: Performed By: #### S URGP #### [facility] (DEFAULT) [address] [address] CBC,PLATELETSon 02-21-2025 Hematocrit (Bld) [Volume fraction] 27.2 % Low 39.6-48.8 [facility] Comment on above: Performed By: #### H EMOGC #### [facility] (DEFAULT) [address] [place] [address] 40015 Hemoglobin (Bld) [Mass/Vol] 8.1 g/dL Low 13.4-16.8 [facility] Comment on above: Performed By: #### H EMOGC #### [facility] (DEFAULT) [address] [place] [address] 74219 MCV (RBC) [Entitic vol] 109.7 fL High 79.0-94.5 [facility] Comment on above: Performed By: #### H EMOGC #### [facility] (DEFAULT) [address] [place] [address] 47600 Mean Cell Hgb 32.7 pg Normal 26.1-33.3 [facility] Comment on above: Performed By: #### H EMOGC #### [facility] (DEFAULT) [address] [place] [address] 83969 Mean Cell Hgb Conc 29.8 g/dL Low 31.9-36.5 [facility] Comment on above: Performed By: #### H EMOGC #### [facility] (DEFAULT) [address] [place] [address] 00859 Platelet mean volume (Bld) [Entitic vol] 11.0 fL Normal 8.7-12.3 [facility] Comment on above: Performed By: #### H EMOGC #### [facility] (DEFAULT) [address] [place] [address] 09019 Platelets (Bld) [#/Vol] 141 10*3/uL Low 146-337 [facility] Comment on above: Performed By: #### H EMOGC #### [facility] (DEFAULT) [address] [place] [address] 11853 RBC (Bld) [#/Vol] 2.48 10*6/uL Low 4.38-5.83 [facility] Comment on above: Performed By: #### H EMOGC #### [facility] (DEFAULT) [address] [place] [address] 80136 RBC Distribution 19.1 % High 10.9-14.3 [facility] Comment on above: Performed By: #### H EMOGC #### [facility] (DEFAULT) [address] [place] [address] 77343 WBC (Bld) [#/Vol] 8.97 10*3/uL Normal 3.73-10.10 [facility] Comment on above: Performed By: #### H EMOGC #### [facility] (DEFAULT) [address] [place] [address] 39008 CHEM 7 (LYTES,BUN,CREA,GLUC) on 02-21-2025 Anion gap [Moles/Vol] 17 mmol/L Normal 7-17 [facility] Comment on above: Performed By: #### G EN #### [facility] (DEFAULT) [address] [place] [address] 45359 Chloride [Moles/Vol] 99 mmol/L Normal 98-108 [facility] Comment on above: Performed By: #### G EN #### [facility] (DEFAULT) [address] [place] [address] [id number] CO2 [Moles/Vol] 23 mmol/L Normal 21-31 [facility] Comment on above: Performed By: #### G EN #### [facility] (DEFAULT) [address] [place] [address] 08683 Creatinine [Mass/Vol] 6.62 mg/dL High 0.70-1.30 [facility] Comment on above: Performed By: #### G EN #### [facility] (DEFAULT) [address] [place] [address] 21914 GFR/1.73 sq M.predicted among non-blacks MDRD (S/P/Bld) [Vol rate/Area] 8 mL/min/{1.73_m2} Low >=60 [facility] Comment on above: Result Comment: Repo rted eGFR is based on the CKD-EPI 2020 equation using creatinine, age, and sex. Performed By: #### G EN #### [facility] (DEFAULT) [address] [place] [address] 11513 Glucose [Mass/Vol] 108 mg/dL Normal Nonfastin -179 mg/dL; Fastin-99 [facility] Comment on above: Performed By: #### G EN #### [facility] (DEFAULT) [address] [place] [address] 14740 Osmolality [Osmolality] 289 mosm/kg Normal 278-305 [facility] Comment on above: Performed By: #### G EN #### [facility] (DEFAULT) [address] [place] [address] 15133 Potassium [Moles/Vol] 3.7 mmol/L Normal 3.5-5.0 [facility] Comment on above: Performed By: #### G EN #### [facility] (DEFAULT) [address] [place] [address] 50468 Sodium [Moles/Vol] 135 mmol/L Normal 135-145 [facility] Comment on above: Performed By: #### G EN #### [facility] (DEFAULT) [address] [place] [address] Urea nitrogen [Mass/Vol] 28 mg/dL High 7-25 [facility] Comment on above: Performed By: #### G EN #### [facility] (DEFAULT) [address] [place] [address] Urea nitrogen/Creatinine [Mass ratio] 4 mg/mg Normal [facility] Comment on above: Performed By: #### G EN #### [facility] (DEFAULT) [address] [place] [address] Laboratory - Chemistry and C hemistry - challengeOrdered By: Summer Thompson on 02-21-2025 Anion gap [Moles/Vol] 17 mmol/L 7 - 17 mmol/L [facility] Chloride [Moles/Vol] 99 mmol/L 98 - 10 8 mmol/L [facility] CO2 [Moles/Vol] 23 mmol/L 21 - 31 mmol/L [facility] Creatinine [Mass/Vol] 6.62 mg/dL High 0.70 - 1.30 mg/dL [facility] Glucose [Mass/Vol] 108 mg/dL 70 - 179 mg/dL [facility] Osmolality Calc [Osmolality] 289 [facility] Potassium [Moles/Vol] 3.7 mmol/L 3.5 - 5.0 mmol/L [facility] Sodium [Moles/Vol] 135 mmol/L 135 - 145 mmol/L [facility] Urea nitrogen [Mass/Vol] 28 mg/dL High 7 - 25 mg/dL [facility] Urea nitrogen/Creatinine [Mass ratio] 4 mg/mg [facility] Laboratory - Chemistry and C hemistry - challengeon 02-21-2025 Calcium [Mass/Vol] 8.3 mg/dL Low 8.6 - 10. 5 mg/dL [facility] Magnesium [Mass/Vol] 1.5 mg/dL Low 1.6 - 2 .6 mg/dL [facility] Phosphate [Mass/Vol] 3.2 mg/dL 2.2 - 4 .6 mg/dL [facility] Laboratory - CoagulationOrde red By: Linh Jang on 02-21-2025 aPTT Coag (PPP) [Time] 132.7 s High OS [facility] Laboratory - Coagulationon 0 02-21-2025 aPTT Coag (PPP) [Time] 93.9 s High OS [facility] INR Coag (Bld) [Relative time] 1.2 {INR} High 0.9 - 1.1 [facility] PT Coag (PPP) [Time] 14.8 [facility] - Hematology and Cell countson 02-21-2025 Erythrocyte distribution width (RBC) [Ratio] 19.1 % High 10.9 - 14.3 % [facility] Hematocrit (Bld) [Volume fraction] 27.2 % Low 39.6 - 48.8 % [facility] Hemoglobin (Bld) [Mass/Vol] 8.1 g/dL Low 13.4 - 16.8 g/dL [facility] MCH (RBC) [Entitic mass] 32.7 pg 26.1 - 33.3 pg [facility] MCHC (RBC) [Mass/Vol] 29.8 g/dL Low 31.9 - 36.5 g/dL [facility] MCV (RBC) [Entitic vol] 109.7 fL High 79.0 - 94.5 fL [facility] Platelet mean volume (Bld) [Entitic vol] 11 fL 8.7 - 12.3 fL [facility] Platelets (Bld) [#/Vol] 141 10*3/uL Low 146 - 337 K/uL [facility] RBC (Bld) [#/Vol] 2.48 10*6/uL Low [facility] WBC (Bld) [#/Vol] 8.97 10*3/uL 3.73 - 10. 10 K/uL [facility] MAGNESIUMon 02-21-2025 Magnesium [Mass/Vol] 1.5 mg/dL Low 1.6-2.6 [facility] Comment on above: Performed By: #### G EN #### [facility] (DEFAULT) [address] [place] [address] 81185 No Panel InformationOrdered By: Linh Jang on 02-21-2025 Interpretation and review of laboratory results Abnormal [facility] No Panel Informationon 02-21 Interpretation and review of laboratory results Abnormal [facility] ABO/RH(D) TYPE Positive [facility] Specimen Expiration 02/24/2025 01:05 [facility] Interpretation and review of laboratory results Abnormal [facility] Interpretation and review of laboratory results Normal [facility] Interpretation and review of laboratory results Abnormal [facility] Interpretation and review of laboratory results Abnormal [facility] No Panel InformationOrdered By: Summer Thompson on 02-21-2025 eGFR, CKD-EPI, Male 8 Low - PINF [facility] Interpretation and review of laboratory results Abnormal [facility] PHOSPHATE, INORGANICon 02-21 Phosphorous 3.2 mg/dL Normal 2.2-4.6 [facility] Comment on above: Performed By: #### G EN #### [facility] (DEFAULT) [address] [place] [address] 39920 PROTIME-INRon 02-21-2025 INR Coag (PPP) [Relative time] 1.2 {INR} High 0.9-1.1 [facility] Comment on above: Performed By: #### X M #### [facility] (DEFAULT) [address] [place] [address] PT Coag (PPP) [Time] 14.8 s High 11.9-14.2 [facility] Comment on above: Performed By: #### X M #### [facility] (DEFAULT) [address] [place] [address] 10865 PTTon 02-21-2025 aPTT Coag (Bld) [Time] 132.7 s High 24.0-34.3 [facility] Comment on above: Order Comment: After [...] Performed By: #### X M #### [facility] (DEFAULT) [address] [place] [address] aPTT Coag (Bld) [Time] 93.9 s High 24.0-34.3 [facility] Comment on above: Order Comment: After [...] Performed By: #### G EN #### [facility] (DEFAULT) [address] [address] TYPE AND SCREENon 02-21-2025 ABO/RH(D) TYPE Positive Normal [facility] Comment on above: Performed By: #### S URGP #### [facility] (DEFAULT) [address] [place] [address] Specimen Expiration 02/24/2025 01:05 Normal [facility] Comment on above: Performed By: #### S URGP #### [facility] (DEFAULT) [address] [address] CBC,PLATELETSon 02-20-2025 Hematocrit (Bld) [Volume fraction] 27.2 % Low 39.6-48.8 [facility] Comment on above: Performed By: #### H EMOGC #### [facility] (DEFAULT) [address] [place] [address] 12537 Hemoglobin (Bld) [Mass/Vol] 8.2 g/dL Low 13.4-16.8 [facility] Comment on above: Performed By: #### H EMOGC #### [facility] (DEFAULT) [address] [place] [address] 51926 MCV (RBC) [Entitic vol] 111.0 fL High 79.0-94.5 [facility] Comment on above: Performed By: #### H EMOGC #### [facility] (DEFAULT) [address] [place] [address] 76072 Mean Cell Hgb 33.5 pg High 26.1-33.3 [facility] Comment on above: Performed By: #### H EMOGC #### [facility] (DEFAULT) [address] [place] [address] 26244 Mean Cell Hgb Conc 30.1 g/dL Low 31.9-36.5 [facility] Comment on above: Performed By: #### H EMOGC #### [facility] (DEFAULT) [address] [place] [address] 97949 Platelet mean volume (Bld) [Entitic vol] 9.5 fL Normal 8.7-12.3 [facility] Comment on above: Performed By: #### H EMOGC #### [facility] (DEFAULT) [address] [place] [address] 74040 Platelets (Bld) [#/Vol] 169 10*3/uL Normal 146-337 [facility] Comment on above: Performed By: #### H EMOGC #### [facility] (DEFAULT) [address] [place] [address] 70221 RBC (Bld) [#/Vol] 2.45 10*6/uL Low 4.38-5.83 [facility] Comment on above: Performed By: #### H EMO #### [facility] (DEFAULT) [address] [address] RBC Distribution 19.2 % High 10.9-14.3 [facility] Comment on above: Performed By: #### H EMOGC #### [facility] (DEFAULT) [address] [address] WBC (Bld) [#/Vol] 9.07 10*3/uL Normal 3.73-10.10 [facility] Comment on above: Performed By: #### H EMO #### [facility] (DEFAULT) [address] [place] [address] 66372 CHEM 7 (LYTES,BUN,CREA,GLUC) on 02-20-2025 Anion gap [Moles/Vol] 15 mmol/L Normal 7-17 [facility] Comment on above: Performed By: #### P TT #### [facility] (DEFAULT) [address] [place] [address] 34972 Chloride [Moles/Vol] 98 mmol/L Normal 98-108 [facility] Comment on above: Performed By: #### P TT #### [facility] (DEFAULT) [address] [place] [address] 26271 CO2 [Moles/Vol] 28 mmol/L Normal 21-31 [facility] Comment on above: Performed By: #### P TT #### [facility] (DEFAULT) [address] [place] [address] 53048 Creatinine [Mass/Vol] 4.40 mg/dL High 0.70-1.30 [facility] Comment on above: Performed By: #### P TT #### [facility] (DEFAULT) [address] [place] [address] 33745 GFR/1.73 sq M.predicted among non-blacks MDRD (S/P/Bld) [Vol rate/Area] 13 mL/min/{1.73_m2} Low >=60 [facility] Comment on above: Result Comment: Repo rted eGFR is based on the CKD-EPI 2020 equation using creatinine, age, and sex. Performed By: #### P TT #### [facility] (DEFAULT) [address] [place] [address] 73542 Glucose [Mass/Vol] 99 mg/dL Normal Nonfastin -179 mg/dL; Fastin-99 [facility] Comment on above: Performed By: #### P TT #### [facility] (DEFAULT) [address] [place] [address] 46418 Osmolality [Osmolality] 288 mosm/kg Normal 278-305 [facility] Comment on above: Performed By: #### P TT #### [facility] (DEFAULT) [address] [place] [address] 07570 Potassium [Moles/Vol] 4.0 mmol/L Normal 3.5-5.0 [facility] Comment on above: Performed By: #### P TT #### [facility] (DEFAULT) [address] [place] [address] 71317 Sodium [Moles/Vol] 137 mmol/L Normal 135-145 [facility] Comment on above: Performed By: #### P TT #### [facility] (DEFAULT) [address] [place] [address] 04329 Urea nitrogen [Mass/Vol] 14 mg/dL Normal 7-25 [facility] Comment on above: Performed By: #### P TT #### [facility] (DEFAULT) [address] [place] [address] 01621 Urea nitrogen/Creatinine [Mass ratio] 3 mg/mg Normal [facility] Comment on above: Performed By: #### P TT #### [facility] (DEFAULT) [address] [place] [address] 85765 Laboratory - Chemistry and C hemistry - challengeon 02-20-2025 Anion gap [Moles/Vol] 15 mmol/L 7 - 17 mmol/L [facility] Chloride [Moles/Vol] 98 mmol/L 98 - 10 8 mmol/L [facility] CO2 [Moles/Vol] 28 mmol/L 21 - 31 mmol/L [facility] Creatinine [Mass/Vol] 4.4 mg/dL High 0.70 - 1.30 mg/dL [facility] Glucose [Mass/Vol] 99 mg/dL 70 - 179 mg/dL [facility] Osmolality Calc [Osmolality] 288 [facility] Potassium [Moles/Vol] 4 mmol/L 3.5 - 5.0 mmol/L [facility] Sodium [Moles/Vol] 137 mmol/L 135 - 145 mmol/L [facility] Urea nitrogen [Mass/Vol] 14 mg/dL 7 - 25 mg/dL [facility] Urea nitrogen/Creatinine [Mass ratio] 3 mg/mg [facility] Magnesium [Mass/Vol] 1.7 mg/dL 1.6 - 2 .6 mg/dL [facility] Phosphate [Mass/Vol] 2.1 mg/dL Low 2.2 - 4 .6 mg/dL [facility] Laboratory - Coagulationon 0 02-20-2025 aPTT Coag (PPP) [Time] 93.3 s High [facility] aPTT Coag (PPP) [Time] 88.2 s High [facility] INR Coag (Bld) [Relative time] 1.1 {INR} 0.9 - 1.1 [facility] PT Coag (PPP) [Time] 14.5 s High [facility] Laboratory - Hematology and Cell countson 02-20-2025 Erythrocyte distribution width (RBC) [Ratio] 19.2 % High 10.9 - 14.3 % [facility] Hematocrit (Bld) [Volume fraction] 27.2 % Low 39.6 - 48.8 % [facility] Hemoglobin (Bld) [Mass/Vol] 8.2 g/dL Low 13.4 - 16.8 g/dL [facility] MCH (RBC) [Entitic mass] 33.5 pg High 26.1 - 33.3 pg [facility] MCHC (RBC) [Mass/Vol] 30.1 g/dL Low 31.9 - 36.5 g/dL [facility] MCV (RBC) [Entitic vol] 111 fL High 79.0 - 94.5 fL [facility] Platelet mean volume (Bld) [Entitic vol] 9.5 fL 8.7 - 12.3 fL [facility] Platelets (Bld) [#/Vol] 169 10*3/uL 146 - 337 K/uL [facility] RBC (Bld) [#/Vol] 2.45 10*6/uL Low [facility] WBC (Bld) [#/Vol] 9.07 10*3/uL 3.73 - 10. 10 K/uL [facility] MAGNESIUMon 02-20-2025 Magnesium [Mass/Vol] 1.7 mg/dL Normal 1.6-2.6 [facility] Comment on above: Performed By: #### P TT #### [facility] (DEFAULT) [address] [place] [address] No Panel Informationon 02-20 Interpretation and review of laboratory results Abnormal [facility] Interpretation and review of laboratory results Abnormal [facility] eGFR, CKD-EPI, Male 13 Low - PINF [facility] Interpretation and review of laboratory results Abnormal [facility] Interpretation and review of laboratory results Normal [facility] Interpretation and review of laboratory results Abnormal [facility] Interpretation and review of laboratory results Abnormal [facility] Interpretation and review of laboratory results Abnormal [facility] PHOSPHATE, INORGANICon 02-20 Phosphorous 2.1 mg/dL Low 2.2-4.6 [facility] Comment on above: Performed By: #### P TT #### [facility] (DEFAULT) [address] [place] [address] 69727 PROTIME-INRon 02-20-2025 INR Coag (PPP) [Relative time] 1.1 {INR} Normal 0.9-1.1 [facility] Comment on above: Performed By: #### X M #### [facility] (DEFAULT) [address] [place] [address] 31112 PT Coag (PPP) [Time] 14.5 s High 11.9-14.2 [facility] Comment on above: Performed By: #### X M #### [facility] (DEFAULT) [address] [place] [address] 04490 PTTon 02-20-2025 aPTT Coag (Bld) [Time] 93.3 s High 24.0-34.3 [facility] Comment on above: Order Comment: After [...] instructions. Performed By: #### X M #### [facility] (DEFAULT) [address] [place] [address] 53749 aPTT Coag (Bld) [Time] 88.2 s High 24.0-34.3 [facility] Comment on above: Order Comment: After [...] Performed By: #### X M #### [facility] (DEFAULT) [address] [place] [address] 91940 CBC,PLATELETSon 02-19-2025 Hematocrit (Bld) [Volume fraction] 26.3 % Low 39.6-48.8 [facility] Comment on above: Performed By: #### X M #### [facility] (DEFAULT) [address] [place] [address] 78713 Hemoglobin (Bld) [Mass/Vol] 8.0 g/dL Low 13.4-16.8 [facility] Comment on above: Performed By: #### X M #### [facility] (DEFAULT) [address] [place] [address] 24791 MCV (RBC) [Entitic vol] 110.5 fL High 79.0-94.5 [facility] Comment on above: Performed By: #### X M #### [facility] (DEFAULT) [address] [place] [address] 30447 Mean Cell Hgb 33.6 pg High 26.1-33.3 [facility] Comment on above: Performed By: #### X M #### [facility] (DEFAULT) [address] [place] [address] 22626 Mean Cell Hgb Conc 30.4 g/dL Low 31.9-36.5 [facility] Comment on above: Performed By: #### X M #### [facility] (DEFAULT) [address] [place] [address] 68759 Platelet mean volume (Bld) [Entitic vol] 10.0 fL Normal 8.7-12.3 [facility] Comment on above: Performed By: #### X M #### [facility] (DEFAULT) [address] [place] [address] 98856 Platelets (Bld) [#/Vol] 166 10*3/uL Normal 146-337 [facility] Comment on above: Performed By: #### X M #### [facility] (DEFAULT) [address] [place] [address] 73217 RBC (Bld) [#/Vol] 2.38 10*6/uL Low 4.38-5.83 [facility] Comment on above: Performed By: #### X M #### [facility] (DEFAULT) [address] [place] [address] 69190 RBC Distribution 19.2 % High 10.9-14.3 [facility] Comment on above: Performed By: #### X M #### [facility] (DEFAULT) [address] [place] [address] 52339 WBC (Bld) [#/Vol] 9.51 10*3/uL Normal 3.73-10.10 [facility] Comment on above: Performed By: #### X M #### [facility] (DEFAULT) [address] [place] [address] 66309 CHEM 7 (LYTES,BUN,CREA,GLUC) on 02-19-2025 Anion gap [Moles/Vol] 17 mmol/L Normal 7-17 [facility] Comment on above: Performed By: #### G EN #### [facility] (DEFAULT) [address] [place] [address] 06992 Chloride [Moles/Vol] 99 mmol/L Normal 98-108 [facility] Comment on above: Performed By: #### G EN #### [facility] (DEFAULT) [address] [place] [address] 53123 CO2 [Moles/Vol] 25 mmol/L Normal 21-31 [facility] Comment on above: Performed By: #### G EN #### [facility] (DEFAULT) [address] [place] [address] 44617 Creatinine [Mass/Vol] 7.51 mg/dL High 0.70-1.30 [facility] Comment on above: Performed By: #### G EN #### [facility] (DEFAULT) [address] [place] [address] 23767 GFR/1.73 sq M.predicted among non-blacks MDRD (S/P/Bld) [Vol rate/Area] 7 mL/min/{1.73_m2} Low >=60 [facility] Comment on above: Result Comment: Repo rted eGFR is based on the CKD-EPI 2020 equation using creatinine, age, and sex. Performed By: #### G EN #### [facility] (DEFAULT) [address] [place] [address] 55800 Glucose [Mass/Vol] 93 mg/dL Normal Nonfastin -179 mg/dL; Fastin-99 [facility] Comment on above: Performed By: #### G EN #### [facility] (DEFAULT) [address] [place] [address] 01306 Osmolality [Osmolality] 291 mosm/kg Normal 278-305 [facility] Comment on above: Performed By: #### G EN #### [facility] (DEFAULT) [address] [place] [address] 08049 Potassium [Moles/Vol] 3.8 mmol/L Normal 3.5-5.0 [facility] Comment on above: Performed By: #### G EN #### [facility] (DEFAULT) [address] [place] [address] 50025 Sodium [Moles/Vol] 137 mmol/L Normal 135-145 [facility] Comment on above: Performed By: #### G EN #### [facility] (DEFAULT) [address] [place] [address] 56607 Urea nitrogen [Mass/Vol] 27 mg/dL High 7-25 [facility] Comment on above: Performed By: #### G EN #### [facility] (DEFAULT) [address] [address] Urea nitrogen/Creatinine [Mass ratio] 4 mg/mg Normal [facility] Comment on above: Performed By: #### G EN #### [facility] (DEFAULT) [address] [place] [address] 76453 Laboratory - Chemistry and C hemistry - challengeOrdered By: Fernanda Mcgill on 02-19-2025 Anion gap [Moles/Vol] 17 mmol/L 7 - 17 mmol/L [facility] Chloride [Moles/Vol] 99 mmol/L 98 - 10 8 mmol/L [facility] CO2 [Moles/Vol] 25 mmol/L 21 - 31 mmol/L [facility] Creatinine [Mass/Vol] 7.51 mg/dL High 0.70 - 1.30 mg/dL [facility] Glucose [Mass/Vol] 93 mg/dL 70 - 179 mg/dL [facility] Osmolality Calc [Osmolality] 291 [facility] Potassium [Moles/Vol] 3.8 mmol/L 3.5 - 5.0 mmol/L [facility] Sodium [Moles/Vol] 137 mmol/L 135 - 145 mmol/L [facility] Urea nitrogen [Mass/Vol] 27 mg/dL High 7 - 25 mg/dL [facility] Urea nitrogen/Creatinine [Mass ratio] 4 mg/mg [facility] Laboratory - Chemistry and C hemistry - challengeon 02-19-2025 Magnesium [Mass/Vol] 1.6 mg/dL 1.6 - 2 .6 mg/dL [facility] Phosphate [Mass/Vol] 3.2 mg/dL 2.2 - 4 .6 mg/dL [facility] Laboratory - Coagulationon 0 02-19-2025 aPTT Coag (PPP) [Time] 93.2 s High [facility] aPTT Coag (PPP) [Time] 95.8 s High [facility] aPTT Coag (PPP) [Time] 93.3 s High [facility] INR Coag (Bld) [Relative time] 1.2 {INR} High 0.9 - 1.1 [facility] PT Coag (PPP) [Time] 15.4 s High [facility] Laboratory - Hematology and Cell countson 02-19-2025 Erythrocyte distribution width (RBC) [Ratio] 19.2 % High 10.9 - 14.3 % [facility] Hematocrit (Bld) [Volume fraction] 26.3 % Low 39.6 - 48.8 % [facility] Hemoglobin (Bld) [Mass/Vol] 8 g/dL Low 13.4 - 16.8 g/dL [facility] MCH (RBC) [Entitic mass] 33.6 pg High 26.1 - 33.3 pg [facility] MCHC (RBC) [Mass/Vol] 30.4 g/dL Low 31.9 - 36.5 g/dL [facility] MCV (RBC) [Entitic vol] 110.5 fL High 79.0 - 94.5 fL [facility] Platelet mean volume (Bld) [Entitic vol] 10 fL 8.7 - 12.3 fL [facility] Platelets (Bld) [#/Vol] 166 10*3/uL 146 - 337 K/uL [facility] RBC (Bld) [#/Vol] 2.38 10*6/uL Low [facility] WBC (Bld) [#/Vol] 9.51 10*3/uL 3.73 - 10. 10 K/uL [facility] MAGNESIUMon 02-19-2025 Magnesium [Mass/Vol] 1.6 mg/dL Normal 1.6-2.6 [facility] Comment on above: Performed By: #### G EN #### [facility] (DEFAULT) [address] [place] [address] No Panel Informationon 02-19 Interpretation and review of laboratory results Abnormal [facility] Interpretation and review of laboratory results Abnormal [facility] Interpretation and review of laboratory results Abnormal [facility] Interpretation and review of laboratory results Abnormal [facility] Interpretation and review of laboratory results Normal [facility] Interpretation and review of laboratory results Abnormal [facility] No Panel InformationOrdered By: Fernanda Mcgill on 02-19-2025 eGFR, CKD-EPI, Male 7 Low - PINF [facility] Interpretation and review of laboratory results Abnormal [facility] PHOSPHATE, INORGANICon 02-19 Phosphorous 3.2 mg/dL Normal 2.2-4.6 [facility] Comment on above: Performed By: #### G EN #### [facility] (DEFAULT) [address] [place] [id number] PROTIME-INRon 02-19-2025 INR Coag (PPP) [Relative time] 1.2 {INR} High 0.9-1.1 [facility] Comment on above: Performed By: #### S URGP #### [facility] (DEFAULT) [address] [place] [address] PT Coag (PPP) [Time] 15.4 s High 11.9-14.2 [facility] Comment on above: Performed By: #### S URGP #### [facility] (DEFAULT) [address] [place] [address] PTTon 02-19-2025 aPTT Coag (Bld) [Time] 93.2 s High 24.0-34.3 [facility] Comment on above: Order Comment: After [...] administration instructions. Performed By: #### P TT ####[facility] (DEFAULT)[address] [place] [address] aPTT Coag (Bld) [Time] 95.8 s High 24.0-34.3 [facility] Comment on above: Order Comment: After [...] Performed By: #### P TT #### [facility] (DEFAULT) [address] [address] aPTT Coag (Bld) [Time] 93.3 s High 24.0-34.3 [facility] Comment on above: Order Comment: After [...] instructions. Performed By: #### S URGP #### [facility] (DEFAULT) [address] [place] [address] CBC,PLATELETSon 02-18-2025 Hematocrit (Bld) [Volume fraction] 26.8 % Low 39.6-48.8 [facility] Comment on above: Performed By: #### P TT #### [facility] (DEFAULT) [address] [address] Hemoglobin (Bld) [Mass/Vol] 8.2 g/dL Low 13.4-16.8 [facility] Comment on above: Performed By: #### P TT #### [facility] (DEFAULT) [address] [address] MCV (RBC) [Entitic vol] 110.3 fL High 79.0-94.[address] [facility] Comment on above: Performed By: #### P TT #### [facility] (DEFAULT) [address] [address] Mean Cell Hgb 33.7 pg High 26.1-33.3 [facility] Comment on above: Performed By: #### P TT #### [facility] (DEFAULT) [address] [address] Mean Cell Hgb Conc 30.6 g/dL Low 31.9-36.5 [facility] Comment on above: Performed By: #### P TT #### [facility] (DEFAULT) [address] [address] Platelet mean volume (Bld) [Entitic vol] 10.1 fL Normal 8.7-12.3 [facility] Comment on above: Performed By: #### P TT #### [facility] (DEFAULT) [address] [address] Platelets (Bld) [#/Vol] 188 10*3/uL Normal 146-337 [facility] Comment on above: Performed By: #### P TT #### [facility] (DEFAULT) [address] [address] RBC (Bld) [#/Vol] 2.43 10*6/uL Low 4.38-5.83 [facility] Comment on above: Performed By: #### P TT #### [facility] (DEFAULT) [address] [address] RBC Distribution 19.2 % High 10.9-14.3 [facility] Comment on above: Performed By: #### P TT #### [facility] (DEFAULT) [address] [address] WBC (Bld) [#/Vol] 9.23 10*3/uL Normal 3.73-10.10 [facility] Comment on above: Performed By: #### P TT #### [facility] (DEFAULT) [address] [address] CHEM 7 (LYTES,BUN,CREA,GLUC) on 02-18-2025 Anion gap [Moles/Vol] 17 mmol/L Normal 7-17 [facility] Comment on above: Performed By: #### X M #### [facility] (DEFAULT) [address] [place] [address] Chloride [Moles/Vol] 98 mmol/L Normal 98-108 [facility] Comment on above: Performed By: #### X M #### [facility] (DEFAULT) [address] [place] [address]11 CO2 [Moles/Vol] 25 mmol/L Normal 21-31 [facility] Comment on above: Performed By: #### X M #### [facility] (DEFAULT) [address] [place] [address] Creatinine [Mass/Vol] 4.82 mg/dL High 0.70-1.30 [facility] Comment on above: Performed By: #### X M #### [facility] (DEFAULT) [address] [place] [address] GFR/1.73 sq M.predicted among non-blacks MDRD (S/P/Bld) [Vol rate/Area] 12 mL/min/{1.73_m2} Low >=60 [facility] Comment on above: Result Comment: Repo rted eGFR is based on the CKD-EPI 2020 equation using creatinine, age, and sex. Performed By: #### X M #### [facility] (DEFAULT) [address] [place] [address] Glucose [Mass/Vol] 84 mg/dL Normal Nonfastin -179 mg/dL; Fastin-99 [facility] Comment on above: Performed By: #### X M #### [facility] (DEFAULT) [address] [place] [address] Osmolality [Osmolality] 286 mosm/kg Normal 278-305 [facility] Comment on above: Performed By: #### X M #### [facility] (DEFAULT) [address] [place] [address] Potassium [Moles/Vol] 4.2 mmol/L Normal 3.5-5.0 [facility] Comment on above: Performed By: #### X M #### [facility] (DEFAULT) [address] [place] [address] Sodium [Moles/Vol] 136 mmol/L Normal 135-145 [facility] Comment on above: Performed By: #### X M #### [facility] (DEFAULT) [address] [place] [address] Urea nitrogen [Mass/Vol] 16 mg/dL Normal 7-25 [facility] Comment on above: Performed By: #### X M #### [facility] (DEFAULT) [address] [place] [address] Urea nitrogen/Creatinine [Mass ratio] 3 mg/mg Normal [facility] Comment on above: Performed By: #### X M #### [facility] (DEFAULT) [address] [place] [address] Laboratory - Chemistry and C hemistry - challengeon 02-18-2025 Phosphate [Mass/Vol] 2.7 mg/dL 2.2 - 4 .6 mg/dL [facility] Anion gap [Moles/Vol] 17 mmol/L 7 - 17 mmol/L [facility] Chloride [Moles/Vol] 98 mmol/L 98 - 10 8 mmol/L [facility] CO2 [Moles/Vol] 25 mmol/L 21 - 31 mmol/L [facility] Creatinine [Mass/Vol] 4.82 mg/dL High 0.70 - 1.30 mg/dL [facility] Glucose [Mass/Vol] 84 mg/dL 70 - 179 mg/dL [facility] Magnesium [Mass/Vol] 1.7 mg/dL 1.6 - 2 .6 mg/dL [facility] Osmolality Calc [Osmolality] 286 [facility] Potassium [Moles/Vol] 4.2 mmol/L 3.5 - 5.0 mmol/L [facility] Sodium [Moles/Vol] 136 mmol/L 135 - 145 mmol/L [facility] Urea nitrogen [Mass/Vol] 16 mg/dL 7 - 25 mg/dL [facility] Urea nitrogen/Creatinine [Mass ratio] 3 mg/mg [facility] Laboratory - Coagulationon 0 02-18-2025 aPTT Coag (PPP) [Time] 91.2 s High OS [facility] aPTT Coag (PPP) [Time] 80.4 s High [facility] INR Coag (Bld) [Relative time] 1.4 {INR} High 0.9 - 1.1 [facility] PT Coag (PPP) [Time] 16.7 s High [facility] aPTT Coag (PPP) [Time] 64.5 s High [facility] Laboratory - CoagulationOrde red By: Marybeth Bach on 02-18-2025 aPTT Coag (PPP) [Time] 49.3 s High [facility] Laboratory - Hematology and Cell countson 02-18-2025 Erythrocyte distribution width (RBC) [Ratio] 19.2 % High 10.9 - 14.3 % [facility] Hematocrit (Bld) [Volume fraction] 26.8 % Low 39.6 - 48.8 % [facility] Hemoglobin (Bld) [Mass/Vol] 8.2 g/dL Low 13.4 - 16.8 g/dL [facility] MCH (RBC) [Entitic mass] 33.7 pg High 26.1 - 33.3 pg [facility] MCHC (RBC) [Mass/Vol] 30.6 g/dL Low 31.9 - 36.5 g/dL [facility] MCV (RBC) [Entitic vol] 110.3 fL High 79.0 - 94.5 fL [facility] Platelet mean volume (Bld) [Entitic vol] 10.1 fL 8.7 - 12.3 fL [facility] Platelets (Bld) [#/Vol] 188 10*3/uL 146 - 337 K/uL [facility] RBC (Bld) [#/Vol] 2.43 10*6/uL Low [facility] WBC (Bld) [#/Vol] 9.23 10*3/uL 3.73 - 10. 10 K/uL [facility] Platelet mean volume (Bld) [Entitic vol] 10.3 fL 8.7 - 12.3 fL [facility] Platelets (Bld) [#/Vol] 186 10*3/uL 146 - 337 K/uL [facility] MAGNESIUMon 02-18-2025 Magnesium [Mass/Vol] 1.7 mg/dL Normal 1.6-2.6 [facility] Comment on above: Performed By: #### X M #### [facility] (DEFAULT) [address] [place] [address] No Panel Informationon 02-18 Interpretation and review of laboratory results Abnormal [facility] Interpretation and review of laboratory results Abnormal [facility] Interpretation and review of laboratory results Abnormal [facility] ABO/RH(D) TYPE Positive [facility] Specimen Expiration 02/21/2025 03:43 [facility] Interpretation and review of laboratory results Abnormal [facility] Interpretation and review of laboratory results Normal [facility] eGFR, CKD-EPI, Male 12 Low - PINF [facility] Interpretation and review of laboratory results Abnormal [facility] Interpretation and review of laboratory results Normal [facility] Interpretation and review of laboratory results Abnormal [facility] Interpretation and review of laboratory results Normal [facility] No Panel InformationOrdered By: Faith Pina on 02-18-2025 Case Report [facility] Work Phone: Clinical History n3bauYQsEYUweUQvLPLu NVxh krEtEDYpkSMzS9FeglgpPSwu QA2wXE9jfIdecQPrgPRpGBEa WrVnj0olz582wADmq6bvBEWR klzkhVw0jOhoY37hs5J7Cbvn C5ldHQCzVEmgUYOjDAltdVWk DHo6MLQnzHBahzTdXhHyQYKo gBNxkVW8KTEgNQ9xthhgYDhj TVucPNGxovI3LAPbbKOuC8Ge LWBeOE1mxpheBWP8JIywLDZx XKF7LqQaTZKel4Nxzhv2WwSn iBw5u5lvKXKoKDSxxGzei1ve SMB3HLLouUPiI3qafH0yWGRt ZQ8fpwroh4lvKHqdMRsiEDXt nLZ5koU3PFLmhRUcK8LccO2u UFCbMXShzwXmhAogkX9qLqAu FDsqGiRmOk8oCDshG5akyIjr AkYvVv5bHN1rdMopgsKvU9xx SLHUNKOkF9ApJZufy1Vrrkd6 ICBBdHJpYWwgdGFjaHljYXJk tMGeKSNUi5WzksYqfRBdrtNq xrjkSNqpZPSaUA6bNPv7fSQv tOQgz3ilmnocTdUivHmqCyHq R4OvjYR8W9MmzkKhd8joLQDo OYMwQJVzYQMEH1JhhbUjyO3h wnUynSEhM5pfQQWqRPOwc00t o2XnjzA1hJMkJNNwtpMosnBx oTXpdRsiFyTbNI1ccUtgKwCq PKOdMA18hUHkQFc9dTBgiKIw n1fahgbnGxXiwOdxSuWqMER6 aHJpdGlzLiAgSGVtYXRvbWEu YDJWfQ4yaV5wWJ2qCTmjiQC4 z4OkFZnbAR2fTWg3mA73lDtj g8xcsGEyGeCaMOLglXc1zN0u SO4oOMx8bICatDrlvPPlkIuf PsNiGLUvcMCkWXEqyXP2OENl OZVEA0KdAK1zqWidUWQugKDo RVBveAqkZ1GkSU44YyDdGOK5 v36joRBsj8dvSiWqCrDupTuv VOPte7K2MBJqUiIpoWZsspTh AAPzAH8mVDidoPNjYRMWKYQa qWZeXNXcRHURcSQhVHpmp5Uw nuJtEhSwN61eA9PnjIm9ZEHj SLIuzGYgOZshaFLkTRE9gnFj SRLpSxmcTV3yXSIsndHlo542 g3ItlOx4AiEcZ6SwhTcdGGWm x8JiOtCnDzqpsJ5ptHhoDZso YLZ9LUDje5Udn9McMBXQzQEu ciBkaXNlYXNlLiAgVHJhbnNp ZR03AAgpX4inkYrbVOU0aLGo po8zLProt5Nft5Aiu5DwAYjd WJqjnqYphHE7TZVdk5Ian9Wc SOZRXEr7eJXdyb6uOKLxm7X3 yULkNYNfc6Yeu6WzGLsiMET7 [facility] Work Phone: For Immediate Release to Patient's MyChart? Yes Yes [facility] Work Phone: Gross Description x9ouxXHkEOYim9zkSBPv bGFu ZzEwMzNcZnRuYmpcdWMxIHtc cwIvDNjmxNkgYBMqUXCeLT4l dJvevKm4nRwsKOWbgrK4hSNd KDokt9pmFEL3a6vssbpdGRMq UMffDy2itQAcnHpmQmCeZFRz TNt7hM08TFWwuU4dxPLcDRrz gqEcAEMuQ6KoRW2mSYesjFBj IJR0aUihCXAyfoauStK3KKkx HYLksyghWUb3PAvhHKGayNW9 JPReuBSfS9RbVNJkYD8ihza4 KWM3VNygKZOiQyP8WOSwfHXl BBEsiBiaUZqpk512ZEO7IeGz BBIxpiMisMmruO5pQgSeJAWc VGhlIHNwZWNpbWVuIGlzIHJl O9QbinMeVFtqVE2qANFfva8g ZXJseSBsYWJlbGVkIGNvbnRh dG9blkS0jYLdWWEfODHrJHCv SG32H2VcmwIsZOUiyeLoLJPk YZVpcM9pJU22lEIeyj6tHFKq rbsySUMsU4QbFXHjJ7KpCJ7d aTBhHRNhWPQvtSPszZ6shtTs hnWhGBBxO34wyNJyHDGfzHpm x7opFGRegW8mKDL2hanpsz1v PHocO6pzvLdtUURlG69ehRCw uYkoJL8svYTeUN2rISSgcpEl l7FgDQ0mLG5lTHHde5Z0LMXu gpKuf2T5aA4jFV5eHVFui9R8 DND8vYohwYHwzoYgCfTcM26n uN3tU8XdTSYig1ApBMrhOX3e wX5jVxHlRNEnPUHpiVKxUBDa eaZZOUIfPVBtZU0ymYk0SBwd DmxQASCkGVb6Wxz9CktdBTOj zk55PGO6YaHde2T2TDEdCmNu EPPsBY8vuEskGLNdXX3aCMSm U3lhoT2olah3BtKqADPmLuA9 PVZkmhY1Iaa2CRFuGAvse1tl o6JbSNErSYz8aJcuNnJyHPYl y7vnjpWuQeHvXZRgKXWiNAFu sYMrM345u7fcv7eryyQecNN3 WEXnZEE8IJattwIlguK6QEtq pIDoYnG1YCozbmFoNNqfdfZf myEbVtl4CSEnP727JXH5sBwp p1wzHMG3UEOaOQRxUyPxFt0c dBKiI162PCVaSWFWYCGhzEv4 YOHwybPpwnCrfYQKf493Y143 i4ntJJKjvtNexHgKbqbon3xa J100ZTSrvWFadkVvApTnYMRq yCSagBP1IYQjRW2gfeasSIpv XUwzOONrprH9LXPejQRbF6Ky HOUjYB7tqlksIKT1VKseZODo FMQ0EcLzXHCke0Ahkfh8XdBq fm3ndj42RFC5i6ZcfRbtRZZ2 FMF5TsYiBk6isXMdAHWhOV6x SyUzrVHlCCVzid04jNuuUWad sqTmgR7tGiYwBTVdaJGiLWHb SJ5vjCLnOAFghD9gfhfdCVFr EpJeyqfdZHDuqZrystPrQy8s xNdbKOX8ALtgC7rqlT3vUiP7 YOsaM0pluT4pBVi8JZaayWJ8 FOIliC3pZA6daxmkm7lrLAje XFkmYQSmlqN3xvM4IDBerCOf W0BajP0jLOAxID4gaijjf8py DAF2QXemNDYaQSJ2QyRzWIKt m1Ahooc1KtAfl8PekCVnIAnt J84kj459RVZauwNkT2kesBDn vtigqSZuqpzmPMildyA5CVQc XHBsYWluXGYxXGZzMjJcbGFu ZzEwMzNcaGljaFxmMVxkYmNo QUKxHWxrV1nhBdFcOrUmOiNF pn9sg4InCBVylqE6cMvsVPEs a7Ozp6AfYcJNabV2BXldtMIr cnRccGFyfX0= [facility] Work Phone: Microscopic Description o8dinKViMAMiv3pt ZGVmbGFu ZzEwMzNcZnRuYmpcdWMxIHtc ocIaUWfun5NbY0XyXgXpAXkh bnNpXGRlZmxhbmcxMDMzXGZ0 awRiYRWfZVbrCZLzOWtzAr3h gIVzzXdcZtGgRWRhw3hutcNF dnkbiPj7l0cqUGTwHqD5pDTj GGyfU2xrayBqvHHxCBJkILh6 xR65YSBcaD4wkKGuLMltnuWd LzX2VVvpSJIpElT5HVIqfZUk ERCbR2dkADRnQTxqDNTgMMrp tMNjYAD0cAhrb5F7cEXzyVOa lAdyEfRfNxEiJlYMx4QkFVw1 sMmiD7NaXNHeDwD8sMTuWUXq ABpmGCEzTOAxfuP9mZ32BJme duL9bOJpv9Vyv48qp589gT6c gJYwCGZ5LMIuJMNmeEViZEUd HWF1MADhfQKmN1ojEALfXF7q xvsxRXzyEGciDJIvwFT7SLWz lIJhP2KfBCDeWOltBCMbvjb2 AeCxEi8lnJYwzEwlGOmie2uh o9mveJCgSiv1TCReZaTiPprt TGvcl8Bcz6ohNAHwsk4jUSG5 nBQtqZgvt2J1uMHqSCLhjMDl gjLeFOBtNdE3ORjtXN7cgl06 GZBxFIW5ez2hrZWbvNybwyXj cICsTJgwN5DqAYXuh091TRCs N3WfDIDsg9B1rpWaRoFiGKGj dMG4umW8TBGiRXr5rENjrsC4 ypTbnOPxO5nibS9qLCLzQR6o eibcs8bcGGykCNoaIZJysTM0 ypB5OWRudAZeU5UfnP5lMCHd HYimKDAmehq4HhZpQc1puYDp eTcyMFxzYmtwYWdlXHBnbmNv bnRccGduZGVjXHBsYWluXHBs YWluXGYwXGZzMjRccWxccGxh sK9gUfGtSkWmAQglEE6xLQVp M3xsqNOgYMIbCJLdO2drEfXm jG7xrWlmJOlppjLvKRPxtYfv jm5eI84spJNnYAcfnZtwESNp g92wf7NvUNFsixErto3nWH4w NKXmwy47YFR5GvGut8X2SZTx LdFaMJHzBP8yrXutHSQgMX7u DCPqZ8fmrL8rogg4LvKfKYHn BaP2JXHwwyD6Huh6IIXfYMqp n8wqd1CiPEGxKCk5wUxqRoXi NHTkf5ejmkHdCyJxPFLaOLXh DBVfzVLbC111j6edg7nkehBx zPP3IEYzHPZ5KNmcvzEktuV8 SLmxdJEzUhW4LPoaroUoXClh dkGmanHlPly4BFOwO971UWG8 sPfdt3odJQL4HIMkSIKkHhGj Ua2ejWVzN118ROLxGRSXSXPr yJg5HZNmaoGpfwJotWTQm902 B265w8raUZRcudCevHoXtqny g4vuL587LYXhrELazaOfGbFj ZXWzfRIbdTQ0ABGjZZ8coimg JPfoBGnmARQioeM8PSEvpNRz D4EsELHjTU2uanklMKE8FCkq QYFfELI1EsOhTIIho8Nmoya4 UhYufn1gzr20KXE2r6GmdDdq AZB5HRS4OhWpRz3qiKQdPDHc WJ1cWhHboJYxJXAbyx11qTcu EMrukfJgjD1hYxTvSFFoaHVh TLWzBL2efHSsRWIjbC3dcpyq XHBnYnJkcmhlYWRccGdicmRy Nw8nnEygKWH4YCgpW1hzuK8d DxC0EZnuG3aqkF7nLPc5RRgd gST0JBKloL9wTH4xulwbu4be QQygGIfsMXGcfnI6jqE6MOYo pYZwK0YaeY9sSFRpEX0ekzko f6huXUV6ZVvvOVZgFSM3QzNe PWCda9Lorxy9JpMpn8ZpnROj AZstY15xf100YQIdliHzW8ic bGFpblxwbGFpblxmMFxmczI0 XHFsXHBsYWluXGYxXGZzMjBc bGFuZzEwMzNcaGljaFxmMVxk MeSzQQZeNFucN0imZlZrM0Ct TUYoHjNihEUqRSDrwFBrb973 dt7fnrNhsQ40STDjpXXcoSQd ESIgWNOpNOE4fKJgxKopMCQy uVCjmG92gd1seTZ8d6ZjFJ2v k7ZhuKOvRJkCJSseeR0yo0t6 rBQdbOJcbMMuinG9bN5oBCkR U4ukNXDlisTorImigO8fwHSd fRMvsFX9FKC7ebU6TRSgADRj qxJdb2BgEUKetYSxvxVlDIRl CBUajrCdjm7tTEIcvJM1lDHi L7BLSXwczA5rygEKWEQbI2Ie IENlbnRlciBDbGluaWNhbCBM UZJkzgN3d6R6FDEPtKN6i7sj H2izCR3nOYyFGsLEHGOsKWB7 VFTWE3blge6derNOb7TfVJKT jUILNUutBRDKp4k9pEA8ijxr T1skKXIaRLLtUIHFlCuaIO6x rZ2wFdw3c7Aue3IfvdSgWCaL SHU9DIZ7cdW5WMEwSXNhsdRz j5RzZYKvzTYyrbYlKOAnDRWe xtWmuc6aHWDiaRC5jCWrF6JG FOauaN1ryfHACLEtH7DuBURn bnRlciBDbGluaWNhbCBMYWJv gvI0s3L5ZTWYPI5bnHFWzPCw d9kqpyutBAObFYhmIYIezTyv LCXxvnFyCDPEv2i7vFI5auhp O5bzKCZyNJUrKYZszYC9JTQ9 cyByZXBvcnRlZCBoZXJlLCBl bPYvjOBxHo9zDPUATOuaKBIi TGWwCE5mlMTxBJBkXSVjAOZh YCIaBoham9IvEPUyei08ZAEq DdbeaTryNJHNOXSgp4TrFJ3h ILGpcTweHZBelN4bn3MbOEUu o64tMCZBVDnpBCSjUTJfPNSu kzT8w7U4QIjlPPYnN8TbHACj UBO6soDhxzBZAHhKKRMkMZQ2 GTbeHlupMPX1vpRwKWHhi1Ok DNcvJ9msT63uyHwlyXl1gIX2 KKP4oC0pJlUOxGHijMQweCKa QHJiNJVpQHKkAh3rZQRglY9h N5GrLVR2wuMxj6RzEsNCdWM2 IQThu6CbGUEju8UgQiKtxxKh FTSkGNVtDEPsvO44VHX6nZjz cAaphbTzRQ5dWFEgvyFpPSTf WSXwkB0kbIOcaD7= [facility] Work Phone: Pathologic Diagnosis n0rcrTOhFEZahRCrQSU wNVxh gtTeLPBmoJNhT2UsmyklXAdl ZZ5yKN6rvKdjdQRntYHaCGBv KiHsl3oci395aWZcx1ccNUBJ rwhtqLn8c7eqBIKUbY1rc0h9 nS05DXIrwC4fgQTtGBsfkgUb GHktcwRlfqPcKch1VHG3eWpc BchgvPL0dLGflUV6SUykr7Vl mWxsjYioBHFrJQE1FJD8BMhj y0V6EF3xzNT0UDsrUOY9CPvx i1PhSK7lCLk8HWhew4OdxHDe aEB8ESzen3PcZEOkfMbkKJKq gU0vMmKsMYoigpRjbxQnlbCu OHcnczKslvDkFQwikbIfj9Tm ckNpuWC2VPgakgKcfGX6tOgy SOVwM7X1C774YCmsvyQcifBj WvZmgmy5VEMuGRWjNtSyiVoi HwHkEzhoHEZ4g8aopGJ7wQF3 FAbzrNW3HDrsUmDnA2pcUQSt fN6lB64aB2xqNDUzfAqvUOma LASoyNO4TYD0DEWuj3ktGKPy vGSwcZQhPxCsMYdiJpc9k5ef LOGcsA29nKKbdjG3vJfhYDce czIwfXtcbGlzdGxldmVsXGxl sfSviaZmSqArtGG2BRnvEwDh PqBthBB7MTesBgYhtUF0QFnt dISenAZ3SLtqkWU7ZUu1ZNt5 UDrnUIdeOxi6dNcdoPV2GMhf oQ0eBTVoF01tKvNaGqBiDY18 ONynu0IbSYQipJdfACRbtW8u YzIzXGxldmVsbmZjbjIzXGxl syMsleHlIObufsNjr9GrisAd gBP5NZcbryLrtGX9bAkxWWXa Y7Q8J419FXznjeUyhwBgEoRx yfi1RHDhBCQtGyH8h1vmtIT0 jWU4QXipwLY8QBlkOnAsU6uo AWYaxZ5qE61zC0sxJKGbyIzw MNvzCNLglZI6BFP6UFUic9dp ZXZlbHRleHRcJzAxXCdiNzt9 q5cpQJEsvU75uPKhdkK7dNhs MVxmczIwfXtcbGlzdGxldmVs YDhhpdFjyzEhSpVkuZS4KOoq GwKsZkLmhFW0FUuoTuBnmWZ4 SWxojNQqiKC0FSzxpDB0QTu6 HGk2NUzbOGguAep4pBistCT2 BAepaS1zSDXaH56sGpWdGoGa IG53CYigd3UiOBQufXimGHOa vK7jRqMoWBfjjbBxghJmpaLi SLzmvaOtcqAbKEdiiuTbj2Oi oeElwOE2UUifsvCznHH9rWcu EEQbE3R2V719RIhswrAfqoXz TjXfjqy3MLVzQLYhTxI3x0ya zIQ7lDG0DWyqyEK9ILlzZqZs B9adPTZnmR8aI50tR7cjPPTn yJpnMSknDQLigVC0LVJ0LMPx t6wpSSYbnZYjbSMePfYrAKvj Sra0a8fkUFGsrB06kSNollD3 fVxmMVxmczIwfXtcbGlzdGxl dmVsXGxldmVsbmZjMjNcbGV2 YEwwIdUhLtNnlGF4DGgxZhQo fIE6LBeuxQFwoNV3LUingCR6 TDk1CGh9UXkcLDhxOqi3fAof iWE7JYjojU0mIOCbX34iTcSi DyPvFL38wTiwAybwlXC0v0Pw ddRcDII7XMXfGNpxEqdrdKW2 b0LagaEzGDKkiPzopYqkXEIb TCU4LBP2BNenf7JzmmDogxwn UCCqpQ48VRnnssI2tUsaWMJc oqvrEtV1STfoQZHjzspgJCf3 RKsjHJNhuVX8QMCttUCsR0El ODSaIO4htae8XZK0VMwvTSQb AyT1UQHtwOInUOBgnOrbQLqj w025ZYD8LmQhJSZsmzQnuQrn xP7gGpmfxhRlQURsQNZNXoYN t3lcglgzq7nftE6xITlgPfmr eEN1NjfyEIUfhKmqVdVyQvoy ODBcbGluMzYwXGxzMVxpbHZs TVodiSKzfhudRSRxSvIeI3Cz GFP6jZJka3x8TKFdrBMhf7Dt TKHcTLNkyLYbmYUxk0GsPO1j G7Und1ndUGWsIXakxQv9SQBn k3WhtHBhcTxxSQ1zdXnkp0Hs ZRWewZ7nlqMcVHlyZQErAT5w hL3aqVwsuP9tyVRdbCWlmHFk aCDrpcRhRy9dSVU3lH7gKRti eC22xOQ7ntPfxiHbKCryxSk7 AFMrh8GlapnxMRoljR4heRAz uE1pdl4yXQQzimlomEYcJtwx UXlysgXvlNVrDMEhdrFKs74b RD39OoOQpSRoGcpqJGmjX6Lj ECWmXUVrcfXed3YrhxKbh0e8 aCBjbGluaWNhbCBpbXByZXNz pS6fLP5uRDJzcU2eeAYpoDKo aGVtaWEuIFNpbWlsYXIgZmlu FDvcM8KcGHE8CIweKTJ3MYOp L7DhlYdjHHHfyqDcYRIrUJHh XOlhXDEbq19enTK0cE0pCYux aRxhbA4pSWH6sX8tcrJwqwOl e5Y6NLMgNC9pIBhuKZWfv38l rB8xzJH6GvSYhCSmZYPspcEa ljYuvqkiQB9bMPCcBfZiYQkx N41bonW0HdYlbLQmoM== [facility] Work Phone: Professional Interpretation Performed at: g0lznZOmTIKnwCPwKtWgBXOt TFBbu5jpNMQenNJgQtWvKmPf QeTxHoticDBsVQOlAnPqp0nu g214tREzt0jpMARuSmA3bNFw KJCmmNFhC051BNYePYwmy6us u9VdTIStcMEzz7N2FXJVuecx oIi8jMlwJ67zb6L0XbvlY3zq IENeDYFtH1WuUU4oVFZkYou2 JLJ0NDA0JRXtCDOvQ6NoHS3x QBEhpYRiRMa2u6ahgTqeDYPj RPW6p7zcHApshnNiUI0ehf1a vPr3f5mbglDrXEHfIYQutYBT SDYoK7VqoQgpTs1dcUe9cPhg LmmgMJP5Hkg3BG4rhk03dxi8 pVqqZVOmbmttFqM8KHacLKLk hjmkEOc8YYzkQWOimRM2YFBo dRAvO5YgYVXxDF5fwgx0CON0 GElpKWJxDmY3IWIzvYLqRXGm zDsaULpvz972KBO7FrJlMS2q A6Ckg2R1kZ1wdQPhOVEawMHx CqKrXPJgnz2eqBKdDGlxs7Eg ZXF6zlI2uAMudCHeFNPuEP63 Vqpbf0GbAtalENX0YAOxrbSh t1Sce8vdIuGdzkQpD2ytR0Sv HAHzRDEpOODkNvIwaaQdx4Ho l3VdxWNmnEw9c5feEGHzQHJx bKgil0auBEX7CEMkI2X5gQQz b6wnQScqAVLdgVP2hoF2MKVh hSKrN2UtuW2pUQRuPI9mrrq3 u0yzJCE3TGzcGJKdBbT1mzU8 EDHedJPkMPRduLcnPIfzj320 XEV0ViUzUHZby2SqK4AycVsf R22jnTanX64lKVRpzZvkyP3q bWmiiJ9hFjFqYpAiRLncSFGc XHBsYWluXGYxXGZzMjJcbGFu ZzEwMzNcaGljaFxmMVxkYmNo CAWnJZfrS5koEpAlOfIyByBL F3MpM8KFWtBIVW5BJXgPHUhi R1TUECUMXUPKKF2JF3WQQViR Nz8KLKATPgdsvUEsFDPsTXPF CRT7VYNumVcbLLAeOVBwqrMN f0j3mGW2ejslL5ugeyM1YgZc MFxwYXJ9 [facility] Work Phone: [facility] Work Phone: No Panel InformationOrdered By: Marybeth Bach on 02-18-2025 Interpretation and review of laboratory results Abnormal [facility] PHOSPHATE, INORGANICon 02-18 Phosphorous 2.7 mg/dL Normal 2.2-4.6 [facility] Comment on above: Performed By: #### X M #### [facility] (DEFAULT) [address] [address] PLATELET COUNTon 02-18-2025 Platelet mean volume (Bld) [Entitic vol] 10.3 fL Normal 8.7-12.3 [facility] Comment on above: Performed By: #### X M #### [facility] (DEFAULT) [address] [address] Platelets (Bld) [#/Vol] 186 10*3/uL Normal 146-337 [facility] Comment on above: Performed By: #### X M #### [facility] (DEFAULT) [address] [address] PROTIME-INRon 02-18-2025 INR Coag (PPP) [Relative time] 1.4 {INR} High 0.9-1.1 [facility] Comment on above: Performed By: #### P TT, PTI ####[facility] (DEFAULT)[address] [address] PT Coag (PPP) [Time] 16.7 s High 11.9-14.2 [facility] Comment on above: Performed By: #### P TT, PTI ####[facility] (DEFAULT)[address] [address] PTTon 02-18-2025 aPTT Coag (Bld) [Time] 91.2 s High 24.0-34.3 [facility] Comment on above: Order Comment: After [...] instructions. Performed By: #### X M #### [facility] (DEFAULT) [address] [address] aPTT Coag (Bld) [Time] 80.4 s High 24.0-34.3 [facility] Comment on above: Order Comment: After [...] Performed By: #### H EMOGC #### [facility] (DEFAULT) [address] [address] aPTT Coag (Bld) [Time] 64.5 s High 24.0-34.3 [facility] Comment on above: Order Comment: After [...] Performed By: #### P TT, PTI ####[facility] (DEFAULT)[address] [address] aPTT Coag (Bld) [Time] 49.3 s High 24.0-34.3 [facility] Comment on above: Order Comment: After [...] Performed By: #### X M #### [facility] (DEFAULT) [address] [address] TYPE AND SCREENon 02-18-2025 ABO/RH(D) TYPE Positive Normal [facility] Comment on above: Performed By: #### X M #### [facility] (DEFAULT) [address] [address] Specimen Expiration 02/21/2025 03:43 Normal [facility] Comment on above: Performed By: #### X M #### [facility] (DEFAULT) [address] [address] CBC,PLATELETSon 02-17-2025 Hematocrit (Bld) [Volume fraction] 24.0 % Low 39.6-48.8 [facility] Comment on above: Performed By: #### X M #### [facility] (DEFAULT) [address] [address] Hemoglobin (Bld) [Mass/Vol] 7.6 g/dL Low 13.4-16.8 [facility] Comment on above: Performed By: #### X M #### [facility] (DEFAULT) [address] [address] MCV (RBC) [Entitic vol] 108.6 fL High 79.0-94.[address] [facility] Comment on above: Performed By: #### X M #### [facility] (DEFAULT) [address] [address] Mean Cell Hgb 34.4 pg High 26.1-33.3 [facility] Comment on above: Performed By: #### X M #### [facility] (DEFAULT) [address] [address] Mean Cell Hgb Conc 31.7 g/dL Low 31.9-36.5 [facility] Comment on above: Performed By: #### X M #### [facility] (DEFAULT) [address] [address] Platelet mean volume (Bld) [Entitic vol] 9.7 fL Normal 8.7-12.3 [facility] Comment on above: Performed By: #### X M #### [facility] (DEFAULT) [address] [address] Platelets (Bld) [#/Vol] 170 10*3/uL Normal 146-337 [facility] Comment on above: Performed By: #### X M #### [facility] (DEFAULT) [address] [place] [address] RBC (Bld) [#/Vol] 2.21 10*6/uL Low 4.38-5.83 [facility] Comment on above: Performed By: #### X M #### [facility] (DEFAULT) [address] [place] [address] RBC Distribution 19.4 % High 10.9-14.3 [facility] Comment on above: Performed By: #### X M #### [facility] (DEFAULT) [address] [place] [address] WBC (Bld) [#/Vol] 8.48 10*3/uL Normal 3.73-10.10 [facility] Comment on above: Performed By: #### X M #### [facility] (DEFAULT) [address] [place] [address]131 CHEM 7 (LYTES,BUN,CREA,GLUC) on 02-17-2025 Anion gap [Moles/Vol] 16 mmol/L Normal 7-17 [facility] Comment on above: Performed By: #### X M #### [facility] (DEFAULT) [address] [place] [address] 06806 Chloride [Moles/Vol] 98 mmol/L Normal 98-108 [facility] Comment on above: Performed By: #### X M #### [facility] (DEFAULT) [address] [place] [address] 76172 CO2 [Moles/Vol] 27 mmol/L Normal 21-31 [facility] Comment on above: Performed By: #### X M #### [facility] (DEFAULT) [address] [place] [address] 12449 Creatinine [Mass/Vol] 5.28 mg/dL High 0.70-1.30 [facility] Comment on above: Performed By: #### X M #### [facility] (DEFAULT) [address] [place] [address] 04058 GFR/1.73 sq M.predicted among non-blacks MDRD (S/P/Bld) [Vol rate/Area] 11 mL/min/{1.73_m2} Low >=60 [facility] Comment on above: Result Comment: Repo rted eGFR is based on the CKD-EPI 2020 equation using creatinine, age, and sex. Performed By: #### X M #### [facility] (DEFAULT) [address] [place] [address] 34775 Glucose [Mass/Vol] 99 mg/dL Normal Nonfastin -179 mg/dL; Fastin-99 [facility] Comment on above: Performed By: #### X M #### [facility] (DEFAULT) [address] [place] [address] 24571 Osmolality [Osmolality] 289 mosm/kg Normal 278-305 [facility] Comment on above: Performed By: #### X M #### [facility] (DEFAULT) [address] [place] [address] 93881 Potassium [Moles/Vol] 4.1 mmol/L Normal 3.5-5.0 [facility] Comment on above: Performed By: #### X M #### [facility] (DEFAULT) [address] [place] [address] 53027 Sodium [Moles/Vol] 137 mmol/L Normal 135-145 [facility] Comment on above: Performed By: #### X M #### [facility] (DEFAULT) [address] [address] Urea nitrogen [Mass/Vol] 17 mg/dL Normal 7-25 [facility] Comment on above: Performed By: #### X M #### [facility] (DEFAULT) [address] [place] [address] 69787 Urea nitrogen/Creatinine [Mass ratio] 3 mg/mg Normal [facility] Comment on above: Performed By: #### X M #### [facility] (DEFAULT) [address] [place] [address] Cardiac echo study Procedure on 02-17-2025 Ao ASC index 2.02 cm/[facility]2 [facility] Ao peak christie 1.92 m/s [facility] Ao SOV index 1.94 cm/m2 [facility] Ao STJ index 1.98 cm/m2 [facility] Ao VTI 38.33 cm [facility] peak gradient 1 mmHg [facility] 15 mmHG [facility] AV valve area 1.24 cm2 [facility] AV Velocity Ratio 0.27 [facility] HAJA (continuity Vmax) 1 cm2 [facility] HAJA (continuity VTI) 1.24 cm2 [facility] HAJA index (continuity Vmax) 0.52 m/s [facility] HAJA index (continuity VTI) 0.65 cm2/m2 [facility] Avg e' pk christie 0.06 m/s [facility] Avg E/e' ratio 10.38 [facility] Body surface area Derived from formula 1.91 m2 [facility] BP EF 69 % [facility] DI (Vmax) 0.27 [facility] DI (VTI) 0.33 m/2 [facility] E wave decelartion time 298.06 msec O [facility] e' lateral pk christie 0.0664 m[facility] pk christie 0.07 m/s [facility] e' septal pk christie 0.0482 m/s [facility] e' septal pk christie 0.05 m/s [facility] E/A ratio 1.66 [facility] E/e' lateral ratio 8.73 [facility] E/e' septal ratio 12.03 [facility] Echo EF Estimated 55 % [facility] EF SP 2CH 73 [facility] EF SP 4CH 67 [facility] EST RAP 8 mmHg [facility] EST RVSP 55 mmHg [facility] FS 31 % [facility] IVC ostium 2.29 cm [facility] IVS 1.2 cm [facility] LA area 4CH 32.01 cm2 [facility] LA ESV BP (MOD) 108 mL [facility] LA ESV BP (MOD) index 57 mL/m2 [facility] LA ESV SP 2CH (MOD) 76 mL [facility] LA ESV SP 4CH (MOD) 127 mL [facility] LV EDV BP 103 mL [facility] LV EDV SP 2CH 134 mL [facility] LV EDV SP 4CH 78 mL [facility] LV ESV BP 32 mL [facility] LV ESV SP 2CH 36 mL [facility] LV ESV SP 4CH 26 mL [facility] LV mass 234.36 g [facility] LV Mass Index 122.7 g/m2 [facility] LV RWT 0.29 [facility] LV stroke volume BP (ml) 71 mL [facility] LV stroke volume index BP 37.17 mL/m2 [facility] LVIDD 5.73 cm [facility] LVIDS 3.98 cm [facility] LVOT area 3.76 cm2 [facility] LVOT diameter 2.19 cm [facility] LVOT peak christie 0.51 m/s [facility] LVOT peak VTI 12.66 cm [facility] LVOT stroke volume 48 cm3 [facility] LVOT stroke volume index 24.96 ml/m2 [facility] Mr max christie 5 m/s [facility] MR PISA EROA 0.15 cm2 [facility] MV mean gradient 4 mmHg [facility] MV peak gradient 12 mmHg [facility] MV pk A christie 0.35 m/s [facility] MV pk E christie 0.58 m/s [facility] MV valve area by continuity eq 0.99 cm2 [facility] MV VTI 48.32 cm [facility] MVA (continuity VTI) 0.99 cm [facility] AV VTI RATIO PRE STRESS 0.33 [facility] ECHO LV BIPLANE SYSTOLIC VOLUME INDEX 16.75 mL/m2 [facility] ECHO LV BP DIASTOLIC VOLUME INDEX 53.93 mL/m2 [facility] PW 0.84 cm [facility] RA area 4CH (MOD) 17.18 cm2 [facility] RA vol index 4CH (MOD) 26.18 mL/m2 [facility] Radius 0.6 cm [facility] Right atrium volume 4 chamber method of disks 50 mL [facility] RV Area diastolic 18 cm2 [facility] RV Area systolic 12.5 cm2 [facility] RV basal diam 3.54 cm [facility] RV Fractional area change 30.6 % [facility] RV long diam 8.08 cm [facility] RV mid diam 2.65 cm [facility] RV S' 6.95 cm/s [facility] RVOT peak gradient 1 mmHg [facility] RVOT peak christie 0.44 m/s [facility] RVOT peak VTI 11.1 cm [facility] RVOT PLAX DIAM 2.5 cm [facility] Sinus 3.71 cm [facility] STJ 3.79 cm [facility] Stroke Volume 48 cm/mL [facility] Stroke volume index 25 [facility] TAPSE 1.81 cm [facility] TR pk grad 47 mmHg [facility] TR pk christie 3.41 m/s [facility] Vn Nyquist 0.33 m/s [facility] UMOUT [facility] Radiology Study observation (narrative) [facility] ECHOCARDIOGRAMon 02-17-2025 Echocardiography Mildly dilated left [...] from the original result were not included. [facility] Facility [facility] Patient Information Patient Name Christian Amador Legal [...] Role Read Date Rosetta Sainz MD Echo [place], Test Unit Aide Tech 02/17/2025 Left Heart Measurements LV - Systole [...] E christie (more content not included)... Normal [facility] Laboratory - Chemistry and C hemistry - challengeOrdered By: Adrian Coronado on 02-17-2025 Anion gap [Moles/Vol] 16 mmol/L 7 - 17 mmol/L [facility] Chloride [Moles/Vol] 98 mmol/L 98 - 10 8 mmol/L [facility] CO2 [Moles/Vol] 27 mmol/L 21 - 31 mmol/L [facility] Creatinine [Mass/Vol] 5.28 mg/dL High 0.70 - 1.30 mg/dL [facility] Glucose [Mass/Vol] 99 mg/dL 70 - 179 mg/dL [facility] Osmolality Calc [Osmolality] 289 [facility] Potassium [Moles/Vol] 4.1 mmol/L 3.5 - 5.0 mmol/L [facility] Sodium [Moles/Vol] 137 mmol/L 135 - 145 mmol/L [facility] Urea nitrogen [Mass/Vol] 17 mg/dL 7 - 25 mg/dL [facility] Urea nitrogen/Creatinine [Mass ratio] 3 mg/mg [facility] Laboratory - Chemistry and C hemistry - challengeon 02-17-2025 Magnesium [Mass/Vol] 1.7 mg/dL 1.6 - 2 .6 mg/dL [facility] Phosphate [Mass/Vol] 2.9 mg/dL 2.2 - 4 .6 mg/dL [facility] Laboratory - CoagulationOrde red By: Ekta Cano on 02-17-2025 aPTT Coag (PPP) [Time] Critically high [facility] Laboratory - Coagulationon 0 02-17-2025 aPTT Coag (PPP) [Time] 109.2 s High [facility] aPTT Coag (PPP) [Time] 93.6 s High [facility] Laboratory - Hematology and Cell countson 02-17-2025 Erythrocyte distribution width (RBC) [Ratio] 19.4 % High 10.9 - 14.3 % [facility] Hematocrit (Bld) [Volume fraction] 24 % Low 39.6 - 48.8 % [facility] Hemoglobin (Bld) [Mass/Vol] 7.6 g/dL Low 13.4 - 16.8 g/dL [facility] MCH (RBC) [Entitic mass] 34.4 pg High 26.1 - 33.3 pg [facility] MCHC (RBC) [Mass/Vol] 31.7 g/dL Low 31.9 - 36.5 g/dL [facility] MCV (RBC) [Entitic vol] 108.6 fL High 79.0 - 94.5 fL [facility] Platelet mean volume (Bld) [Entitic vol] 9.7 fL 8.7 - 12.3 fL [facility] Platelets (Bld) [#/Vol] 170 10*3/uL 146 - 337 K/uL [facility] RBC (Bld) [#/Vol] 2.21 10*6/uL Low [facility] WBC (Bld) [#/Vol] 8.48 10*3/uL 3.73 - 10. 10 K/uL [facility] MAGNESIUMon 02-17-2025 Magnesium [Mass/Vol] 1.7 mg/dL Normal 1.6-2.6 [facility] Comment on above: Performed By: #### X M #### [facility] (DEFAULT) [address] [place] [address] 89792 No Panel InformationOrdered By: Ekta Cano on 02-17-2025 Interpretation and review of laboratory results Abnormal [facility] No Panel Informationon 02-17 Interpretation and review of laboratory results Abnormal [facility] Interpretation and review of laboratory results Normal [facility] Interpretation and review of laboratory results Abnormal [facility] Interpretation and review of laboratory results Abnormal [facility] No Panel InformationOrdered By: Adrian Coronado on 02-17-2025 eGFR, CKD-EPI, Male 11 Low - PINF [facility] Interpretation and review of laboratory results Abnormal [facility] PHOSPHATE, INORGANICon 02-17 Phosphorous 2.9 mg/dL Normal 2.2-4.6 [facility] Comment on above: Performed By: #### X M #### [facility] (DEFAULT) [address] [place] [address] 96237 PTTon 02-17-2025 aPTT Coag (Bld) [Time] s Critically high 24.0-34. 3 [facility] Comment on above: Order Comment: After initiation [...] verified Performed By: #### P TT #### [facility] (DEFAULT) [address] [place] [address]177 aPTT Coag (Bld) [Time] 109.2 s High 24.0-34.3 [facility] Comment on above: Order Comment: After [...] instructions. Performed By: #### X M #### [facility] (DEFAULT) [address] [address] aPTT Coag (Bld) [Time] 93.6 s High 24.0-34.3 [facility] Comment on above: Order Comment: After [...] instructions. Performed By: #### X M #### [facility] (DEFAULT) [address] [address] Bacteria identified Respirat ory culture Nom (Unsp spec)Ordered By: Momo Fofana on 02-16-2025 Bacteria identified Cx Nom (Unsp spec) Growth [facility] Bacteria identified Cx Nom (Unsp spec) Light Growth Common oropharyngeal microbes [facility] Microscopic observation Other stain Nom (Unsp spec) Neutrophils, Light [facility] Microscopic observation Other stain Nom (Unsp spec) Contaminating bacteria and epithelials present [facility] Microscopic observation Other stain Nom (Unsp spec) Specimen is of optimum quality [facility] CBC,PLATELETSon 02-16-2025 Hematocrit (Bld) [Volume fraction] 25.8 % Low 39.6-48.8 [facility] Comment on above: Performed By: #### X M #### [facility] (DEFAULT) [address] [address] Hemoglobin (Bld) [Mass/Vol] 7.8 g/dL Low 13.4-16.8 [facility] Comment on above: Performed By: #### X M #### [facility] (DEFAULT) [address] [address] MCV (RBC) [Entitic vol] 110.3 fL High 79.0-94.5 [facility] Comment on above: Performed By: #### X M #### [facility] (DEFAULT) [address] [address] Mean Cell Hgb 33.3 pg Normal 26.1-33.3 [facility] Comment on above: Performed By: #### X M #### [facility] (DEFAULT) [address] [address] Mean Cell Hgb Conc 30.2 g/dL Low 31.9-36.5 [facility] Comment on above: Performed By: #### X M #### [facility] (DEFAULT) [address] [address] Platelet mean volume (Bld) [Entitic vol] 10.0 fL Normal 8.7-12.3 [facility] Comment on above: Performed By: #### X M #### [facility] (DEFAULT) [address] [address] Platelets (Bld) [#/Vol] 181 10*3/uL Normal 146-337 [facility] Comment on above: Performed By: #### X M #### [facility] (DEFAULT) [address] [address] RBC (Bld) [#/Vol] 2.34 10*6/uL Low 4.38-5.83 [facility] Comment on above: Performed By: #### X M #### [facility] (DEFAULT) [address] [place] [address] 12633 RBC Distribution 19.2 % High 10.9-14.3 [facility] Comment on above: Performed By: #### X M #### [facility] (DEFAULT) [address] [place] [address] 44666 WBC (Bld) [#/Vol] 16.30 10*3/uL High 3.73-10.10 [facility] Comment on above: Performed By: #### X M #### [facility] (DEFAULT) [address] [place] [address] 19925 CHEM 7 (LYTES,BUN,CREA,GLUC) on 02-16-2025 Anion gap [Moles/Vol] 23 mmol/L High 7-17 [facility] Comment on above: Performed By: #### X M #### [facility] (DEFAULT) [address] [place] [address] 32729 Chloride [Moles/Vol] 97 mmol/L Low 98-108 [facility] Comment on above: Performed By: #### X M #### [facility] (DEFAULT) [address] [place] [address] 61862 CO2 [Moles/Vol] 22 mmol/L Normal - [facility] Comment on above: Performed By: #### X M #### [facility] (DEFAULT) [address] [place] [address] 96313 Creatinine [Mass/Vol] 8.21 mg/dL High 0.70-1.30 [facility] Comment on above: Performed By: #### X M #### [facility] (DEFAULT) [address] [place] [address] 19123 GFR/1.73 sq M.predicted among non-blacks MDRD (S/P/Bld) [Vol rate/Area] 6 mL/min/{1.73_m2} Low >=60 [facility] Comment on above: Result Comment: Repo rted eGFR is based on the CKD-EPI 2020 equation using creatinine, age, and sex. Performed By: #### X M #### [facility] (DEFAULT) [address] [place] [address] 58710 Glucose [Mass/Vol] 84 mg/dL Normal Nonfastin -179 mg/dL; Fastin-99 [facility] Comment on above: Performed By: #### X M #### [facility] (DEFAULT) [address] [place] [address]376 Osmolality [Osmolality] 293 mosm/kg Normal 278-305 [facility] Comment on above: Performed By: #### X M #### [facility] (DEFAULT) [address] [place] [address] 56914 Potassium [Moles/Vol] 4.7 mmol/L Normal 3.5-5.0 [facility] Comment on above: Performed By: #### X M #### [facility] (DEFAULT) [address] [place] [address] 30487 Sodium [Moles/Vol] 137 mmol/L Normal 135-145 [facility] Comment on above: Performed By: #### X M #### [facility] (DEFAULT) [address] [place] [address]24 Urea nitrogen [Mass/Vol] 29 mg/dL High 7-25 [facility] Comment on above: Performed By: #### X M #### [facility] (DEFAULT) [address] [place] [address] 03687 Urea nitrogen/Creatinine [Mass ratio] 4 mg/mg Normal [facility] Comment on above: Performed By: #### X M #### [facility] (DEFAULT) [address] [place] [address] Laboratory - Chemistry and C hemistry - challengeOrdered By: Shikha Mayo on 02-16-2025 Anion gap [Moles/Vol] 23 mmol/L High 7 - 17 mmol/L [facility] Chloride [Moles/Vol] 97 mmol/L Low 98 - 10 8 mmol/L [facility] CO2 [Moles/Vol] 22 mmol/L 21 - 31 mmol/L [facility] Creatinine [Mass/Vol] 8.21 mg/dL High 0.70 - 1.30 mg/dL [facility] Glucose [Mass/Vol] 84 mg/dL 70 - 179 mg/dL [facility] Osmolality Calc [Osmolality] 293 [facility] Potassium [Moles/Vol] 4.7 mmol/L 3.5 - 5.0 mmol/L [facility] Sodium [Moles/Vol] 137 mmol/L 135 - 145 mmol/L [facility] Urea nitrogen [Mass/Vol] 29 mg/dL High 7 - 25 mg/dL [facility] Urea nitrogen/Creatinine [Mass ratio] 4 mg/mg [facility] Laboratory - CoagulationOrde red By: Ernestine Sharpe on 02-16-2025 aPTT Coag (PPP) [Time] 86.8 s High [facility] Laboratory - Coagulationon 0 02-16-2025 aPTT Coag (PPP) [Time] 46 s High [facility] INR Coag (Bld) [Relative time] 1.5 {INR} High 0.9 - 1.1 [facility] PT Coag (PPP) [Time] 17.9 s High [facility] Laboratory - Hematology and Cell countson 02-16-2025 Erythrocyte distribution width (RBC) [Ratio] 19.2 % High 10.9 - 14.3 % [facility] Hematocrit (Bld) [Volume fraction] 25.8 % Low 39.6 - 48.8 % [facility] Hemoglobin (Bld) [Mass/Vol] 7.8 g/dL Low 13.4 - 16.8 g/dL [facility] MCH (RBC) [Entitic mass] 33.3 pg 26.1 - 33.3 pg [facility] MCHC (RBC) [Mass/Vol] 30.2 g/dL Low 31.9 - 36.5 g/dL [facility] MCV (RBC) [Entitic vol] 110.3 fL High 79.0 - 94.5 fL [facility] Platelet mean volume (Bld) [Entitic vol] 10 fL 8.7 - 12.3 fL [facility] Platelets (Bld) [#/Vol] 181 10*3/uL 146 - 337 K/uL [facility] RBC (Bld) [#/Vol] 2.34 10*6/uL Low [facility] WBC (Bld) [#/Vol] 16.3 10*3/uL High 3.73 - 10. 10 K/uL [facility] No Panel InformationOrdered By: Ernestine Sharpe on 02-16-2025 Interpretation and review of laboratory results Abnormal [facility] No Panel Informationon 02-16 [facility] Body surface area Derived from formula 1.91 m2 [facility] LAB, [facility] Radiology Study observation (narrative) [facility] Interpretation and review of laboratory results Abnormal [facility] Interpretation and review of laboratory results Abnormal [facility] No Panel InformationOrdered By: Shikha Mayo on 02-16-2025 eGFR, CKD-EPI, Male 6 Low - PINF [facility] Interpretation and review of laboratory results Abnormal [facility] PT,INR,PTTon 02-16-2025 aPTT Coag (Bld) [Time] 46.0 s High 24.0-34.3 [facility] Comment on above: Performed By: #### X M #### [facility] (DEFAULT) [address] [place] [address] INR Coag (PPP) [Relative time] 1.5 {INR} High 0.9-1.1 [facility] Comment on above: Performed By: #### X M #### [facility] (DEFAULT) [address] [place] [address] PT Coag (PPP) [Time] 17.9 s High 11.9-14.2 [facility] Comment on above: Performed By: #### X M #### [facility] (DEFAULT) [address] [address] PTTon 02-16-2025 aPTT Coag (Bld) [Time] 86.8 s High 24.0-34.3 [facility] Comment on above: Order Comment: After [...] Performed By: #### X M #### [facility] (DEFAULT) [address] [place] [address] SURG PATH REQUESTon 02-17-20 Case Report Normal [facility] Comment on above: Result Comment: Surg ical Pathology Report Case: [id number] Authorizing Provider: Gen Oh MD Collected: 02/16/2025 09:28 AM Ordering Location: [facility] Received: 02/16/2025 11:19 AM Pathologist: ROSE Lawson Specimen: COLON TISSUE OR BIOPSY, sigmoid colon bxs; r/o ischemia, r/o malignancy Performed By: #### S URGP #### [facility] (DEFAULT) [address] [place] [address] Clinical History R/o ischemia. R/o malignancy. Medical [...] Gastroesophageal reflux disease. Seizures. Vascular disease. Normal [facility] Comment on above: Performed By: #### S URGP #### [facility] (DEFAULT) [address] [place] [address] Gross Description Normal [facility] Comment on above: Result Comment: The specimen is received in one properly labeled container with the patient's name and accession number. A. The specimen is designated "sigmoid colon bxs; r/o ischemia, r/o malignancy" and consists of one soft gayle portion of tissue which is 0.4 cm in greatest dimension. TE 1 Lab Use Only: JobID [id number] Grosser for this case was: Chris Wilson Performed By: #### S URGP #### [facility] (DEFAULT) [address] [place] [address] Microscopic Description Normal [facility] Comment on above: Result Comment: A mi croscopic examination was performed. All controls show appropriate reactivity. All immunohistochemistry (IHC), in situ hybridization (DONNA), and histochemical tests were developed by and are performed at the [facility], Histology and IHC Lab, [address] [place] [address]. All Immunofluorescent (IF) tests were developed by and are performed at the [facility], Renal Division, [address] [place] [address]. All tests reported here, except for PD-L1, have not been cleared by or approved by the [place] Food and Drug Administration (FDA). The laboratory is regulated under CLIA as qualified to perform high-complexity testing. The tests are used for clinical purposes. They should not be regarded as investigational or for research. Performed By: #### S URGP #### [facility] (DEFAULT) [address] [place] [address] Pathologic Diagnosis Normal [facility] Comment on above: Result Comment: Marifer reese, [...] EDT Performed By: #### S URGP #### [facility] (DEFAULT) [address] [address] [address] Professional Interpretation Performed at: Normal [facility] Comment on above: Result Comment: [facility] For Immediate Release to Patient's [facility]? Yes [address] [address] Performed By: #### S URGP #### [facility] (DEFAULT) [address] [address] CBC,PLATELETSon 02-15-2025 Hematocrit (Bld) [Volume fraction] 25.0 % Low 39.6-48.8 [facility] Comment on above: Performed By: #### X M #### [facility] (DEFAULT) [address] [address] Hemoglobin (Bld) [Mass/Vol] 7.6 g/dL Low 13.4-16.8 [facility] Comment on above: Performed By: #### X M #### [facility] (DEFAULT) [address] [address] MCV (RBC) [Entitic vol] 111.1 fL High 79.0-94.[address] [facility] Comment on above: Performed By: #### X M #### [facility] (DEFAULT) [address] [address] Mean Cell Hgb 33.8 pg High 26.1-33.3 [facility] Comment on above: Performed By: #### X M #### [facility] (DEFAULT) [address] [address] Mean Cell Hgb Conc 30.4 g/dL Low 31.9-36.5 [facility] Comment on above: Performed By: #### X M #### [facility] (DEFAULT) [address] [place] [address] Platelet mean volume (Bld) [Entitic vol] 9.6 fL Normal 8.7-12.3 [facility] Comment on above: Performed By: #### X M #### [facility] (DEFAULT) [address] [place] [address] Platelets (Bld) [#/Vol] 158 10*3/uL Normal 146-337 [facility] Comment on above: Performed By: #### X M #### [facility] (DEFAULT) [address] [place] [address] RBC (Bld) [#/Vol] 2.25 10*6/uL Low 4.38-5.83 [facility] Comment on above: Performed By: #### X M #### [facility] (DEFAULT) [address] [place] [address] RBC Distribution 19.3 % High 10.9-14.3 [facility] Comment on above: Performed By: #### X M #### [facility] (DEFAULT) [address] [place] [address] WBC (Bld) [#/Vol] 8.41 10*3/uL Normal 3.73-10.10 [facility] Comment on above: Performed By: #### X M #### [facility] (DEFAULT) [address] [place] [address] CHEM 7 (LYTES,BUN,CREA,GLUC) on 02-15-2025 Anion gap [Moles/Vol] 16 mmol/L Normal 7-17 [facility] Comment on above: Performed By: #### X M #### [facility] (DEFAULT) [address] [place] [address] Chloride [Moles/Vol] 99 mmol/L Normal 98-108 [facility] Comment on above: Performed By: #### X M #### [facility] (DEFAULT) [address] [place] [address] CO2 [Moles/Vol] 26 mmol/L Normal 21-31 [facility] Comment on above: Performed By: #### X M #### [facility] (DEFAULT) [address] [place] [address] Creatinine [Mass/Vol] 7.08 mg/dL High 0.70-1.30 [facility] Comment on above: Performed By: #### X M #### [facility] (DEFAULT) [address] [place] [address] GFR/1.73 sq M.predicted among non-blacks MDRD (S/P/Bld) [Vol rate/Area] 7 mL/min/{1.73_m2} Low >=60 [facility] Comment on above: Result Comment: Repo rted eGFR is based on the CKD-EPI 2020 equation using creatinine, age, and sex. Performed By: #### X M #### [facility] (DEFAULT) [address] [place] [address] Glucose [Mass/Vol] 93 mg/dL Normal Nonfastin -179 mg/dL; Fastin-99 [facility] Comment on above: Performed By: #### X M #### [facility] (DEFAULT) [address] [place] [address] Osmolality [Osmolality] 292 mosm/kg Normal 278-305 [facility] Comment on above: Performed By: #### X M #### [facility] (DEFAULT) [address] [place] [address] Potassium [Moles/Vol] 3.4 mmol/L Low 3.5-5.0 [facility] Comment on above: Performed By: #### X M #### [facility] (DEFAULT) [address] [place] [address] Sodium [Moles/Vol] 138 mmol/L Normal 135-145 [facility] Comment on above: Performed By: #### X M #### [facility] (DEFAULT) [address] [place] [address] Urea nitrogen [Mass/Vol] 24 mg/dL Normal 7-25 [facility] Comment on above: Performed By: #### X M #### [facility] (DEFAULT) [address] [place] [address] Urea nitrogen/Creatinine [Mass ratio] 3 mg/mg Normal [facility] Comment on above: Performed By: #### X M #### [facility] (DEFAULT) [address] [place] [address] Laboratory - Chemistry and C hemistry - challengeOrdered By: Soto Layton on 02-15-2025 Anion gap [Moles/Vol] 16 mmol/L 7 - 17 mmol/L [facility] Chloride [Moles/Vol] 99 mmol/L 98 - 10 8 mmol/L [facility] CO2 [Moles/Vol] 26 mmol/L 21 - 31 mmol/L [facility] Creatinine [Mass/Vol] 7.08 mg/dL High 0.70 - 1.30 mg/dL [facility] Glucose [Mass/Vol] 93 mg/dL 70 - 179 mg/dL [facility] Osmolality Calc [Osmolality] 292 [facility] Potassium [Moles/Vol] 3.4 mmol/L Low 3.5 - 5.0 mmol/L [facility] Sodium [Moles/Vol] 138 mmol/L 135 - 145 mmol/L [facility] Urea nitrogen [Mass/Vol] 24 mg/dL 7 - 25 mg/dL [facility] Urea nitrogen/Creatinine [Mass ratio] 3 mg/mg [facility] Laboratory - Coagulationon 0 02-15-2025 aPTT Coag (PPP) [Time] 77.2 s High [facility] aPTT Coag (PPP) [Time] 93.3 s High [facility] INR Coag (Bld) [Relative time] 1.6 {INR} High 0.9 - 1.1 [facility] PT Coag (PPP) [Time] 19.2 s High [facility] Laboratory - Hematology and Cell countson 02-15-2025 Platelet mean volume (Bld) [Entitic vol] 10 fL 8.7 - 12.3 fL [facility] Platelets (Bld) [#/Vol] 181 10*3/uL 146 - 337 K/uL [facility] Erythrocyte distribution width (RBC) [Ratio] 19.3 % High 10.9 - 14.3 % [facility] Hematocrit (Bld) [Volume fraction] 25 % Low 39.6 - 48.8 % [facility] Hemoglobin (Bld) [Mass/Vol] 7.6 g/dL Low 13.4 - 16.8 g/dL [facility] MCH (RBC) [Entitic mass] 33.8 pg High 26.1 - 33.3 pg [facility] MCHC (RBC) [Mass/Vol] 30.4 g/dL Low 31.9 - 36.5 g/dL [facility] MCV (RBC) [Entitic vol] 111.1 fL High 79.0 - 94.5 fL [facility] Platelet mean volume (Bld) [Entitic vol] 9.6 fL 8.7 - 12.3 fL [facility] Platelets (Bld) [#/Vol] 158 10*3/uL 146 - 337 K/uL [facility] RBC (Bld) [#/Vol] 2.25 10*6/uL Low [facility] WBC (Bld) [#/Vol] 8.41 10*3/uL 3.73 - 10. 10 K/uL [facility] No Panel Informationon 02-15 Interpretation and review of laboratory results Abnormal [facility] Interpretation and review of laboratory results Normal [facility] ABO/RH(D) TYPE Positive [facility] Specimen Expiration 02/18/2025 06:12 [facility] Interpretation and review of laboratory results Abnormal [facility] Interpretation and review of laboratory results Abnormal [facility] Interpretation and review of laboratory results Abnormal [facility] No Panel InformationOrdered By: Soto Layton on 02-15-2025 eGFR, CKD-EPI, Male 7 Low - PINF [facility] Interpretation and review of laboratory results Abnormal [facility] PLATELET COUNTon 02-15-2025 Platelet mean volume (Bld) [Entitic vol] 10.0 fL Normal 8.7-12.3 [facility] Comment on above: Performed By: #### S URGP #### [facility] (DEFAULT) [address] [place] [address] Platelets (Bld) [#/Vol] 181 10*3/uL Normal 146-337 [facility] Comment on above: Performed By: #### S URGP #### [facility] (DEFAULT) [address] [place] [address] PROTIME-INRon 02-15-2025 INR Coag (PPP) [Relative time] 1.6 {INR} High 0.9-1.1 [facility] Comment on above: Order Comment: Ongoi ng: Daily until INR is therapeutic for 2 consecutive days, then every 2 days for 14 days or until discharged. Performed By: #### P TI, PTT ####[facility] (DEFAULT)[address] [place] [address] PT Coag (PPP) [Time] 19.2 s High 11.9-14.2 [facility] Comment on above: Order Comment: Ongoi ng: Daily until INR is therapeutic for 2 consecutive days, then every 2 days for 14 days or until discharged. Performed By: #### P TI, PTT ####[facility] (DEFAULT)[address] [place] [address] PTTon 02-15-2025 aPTT Coag (Bld) [Time] 77.2 s High 24.0-34.3 [facility] Comment on above: Order Comment: After [...] Performed By: #### X M #### [facility] (DEFAULT) [address] [address] aPTT Coag (Bld) [Time] 93.3 s High 24.0-34.3 [facility] Comment on above: Order Comment: After [...] Performed By: #### P TI, PTT ####[facility] (DEFAULT)[address] [place] [address] TYPE AND SCREENon 02-15-2025 ABO/RH(D) TYPE Positive [facility] Comment on above: Performed By: #### X M #### [facility] (DEFAULT) [address] [place] [address] Specimen Expiration 02/18/2025 06:12 [facility] Comment on above: Performed By: #### X M #### [facility] (DEFAULT) [address] [address] CALCIUMon 02-14-2025 Calcium [Mass/Vol] 8.0 mg/dL Low 8.6-10.5 [facility] Comment on above: Performed By: #### X M #### [facility] (DEFAULT) [address] [place] [address] CBC,PLATELETSon 02-14-2025 Hematocrit (Bld) [Volume fraction] 24.3 % Low 39.6-48.8 [facility] Comment on above: Performed By: #### X M #### [facility] (DEFAULT) [address] [place] [address] Hemoglobin (Bld) [Mass/Vol] 7.4 g/dL Low 13.4-16.8 [facility] Comment on above: Performed By: #### X M #### [facility] (DEFAULT) [address] [place] [address] MCV (RBC) [Entitic vol] 110.5 fL High 79.0-94.[address] [facility] Comment on above: Performed By: #### X M #### [facility] (DEFAULT) [address] [place] [address] Mean Cell Hgb 33.6 pg High 26.1-33.3 [facility] Comment on above: Performed By: #### X M #### [facility] (DEFAULT) [address] [place] [address] Mean Cell Hgb Conc 30.5 g/dL Low 31.9-36.5 [facility] Comment on above: Performed By: #### X M #### [facility] (DEFAULT) [address] [place] [address] Platelet mean volume (Bld) [Entitic vol] 9.7 fL Normal 8.7-12.3 [facility] Comment on above: Performed By: #### X M #### [facility] (DEFAULT) [address] [place] [address] Platelets (Bld) [#/Vol] 157 10*3/uL Normal 146-337 [facility] Comment on above: Performed By: #### X M #### [facility] (DEFAULT) [address] [place] [address] RBC (Bld) [#/Vol] 2.20 10*6/uL Low 4.38-5.83 [facility] Comment on above: Performed By: #### X M #### [facility] (DEFAULT) [address] [place] [address] RBC Distribution 18.6 % High 10.9-14.3 [facility] Comment on above: Performed By: #### X M #### [facility] (DEFAULT) [address] [place] [address] WBC (Bld) [#/Vol] 8.48 10*3/uL Normal 3.73-10.10 [facility] Comment on above: Performed By: #### X M #### [facility] (DEFAULT) [address] [place] [address] CHEM 7 (LYTES,BUN,CREA,GLUC) on 02-14-2025 Anion gap [Moles/Vol] 16 mmol/L Normal 7-17 [facility] Comment on above: Performed By: #### X M #### [facility] (DEFAULT) [address] [place] [address] Chloride [Moles/Vol] 98 mmol/L Normal 98-108 [facility] Comment on above: Performed By: #### X M #### [facility] (DEFAULT) [address] [place] [address] CO2 [Moles/Vol] 26 mmol/L Normal 21-31 [facility] Comment on above: Performed By: #### X M #### [facility] (DEFAULT) [address] [address] Creatinine [Mass/Vol] 4.06 mg/dL High 0.70-1.30 [facility] Comment on above: Performed By: #### X M #### [facility] (DEFAULT) [address] [place] [address] GFR/1.73 sq M.predicted among non-blacks MDRD (S/P/Bld) [Vol rate/Area] 15 mL/min/{1.73_m2} Low >=60 [facility] Comment on above: Result Comment: Repo rted eGFR is based on the CKD-EPI 2020 equation using creatinine, age, and sex. Performed By: #### X M #### [facility] (DEFAULT) [address] [place] [address] Glucose [Mass/Vol] 100 mg/dL Normal Nonfastin -179 mg/dL; Fastin-99 [facility] Comment on above: Performed By: #### X M #### [facility] (DEFAULT) [address] [place] [address] Osmolality [Osmolality] 285 mosm/kg Normal 278-305 [facility] Comment on above: Performed By: #### X M #### [facility] (DEFAULT) [address] [place] [address] Potassium [Moles/Vol] 3.6 mmol/L Normal 3.5-5.0 [facility] Comment on above: Performed By: #### X M #### [facility] (DEFAULT) [address] [place] [address] Sodium [Moles/Vol] 136 mmol/L Normal 135-145 [facility] Comment on above: Performed By: #### X M #### [facility] (DEFAULT) [address] [place] [address] Urea nitrogen [Mass/Vol] 13 mg/dL Normal 7-25 [facility] Comment on above: Performed By: #### X M #### [facility] (DEFAULT) [address] [place] [address] Urea nitrogen/Creatinine [Mass ratio] 3 mg/mg Normal [facility] Comment on above: Performed By: #### X M #### [facility] (DEFAULT) [address] [place] [address]42 FOLATE, SERUMon 03-29-2025 Folate 38.32 ng/mL Normal >5.38 [facility] Comment on above: Performed By: #### X M #### [facility] (DEFAULT) [address] [address] HEPATIC FUNCTION PANELon Albumin [Mass/Vol] 3.4 g/dL Low 3.5-5.0 [facility] Comment on above: Performed By: #### X M #### [facility] (DEFAULT) [address] [address] ALP [Catalytic activity/Vol] 274 U/L High 32-126 [facility] Comment on above: Performed By: #### X M #### [facility] (DEFAULT) [address] [address] ALT [Catalytic activity/Vol] 15 U/L Normal 10-52 [facility] Comment on above: Performed By: #### X M #### [facility] (DEFAULT) [address] [address] AST [Catalytic activity/Vol] 41 U/L High 10-39 [facility] Comment on above: Performed By: #### X M #### [facility] (DEFAULT) [address] [address] Bilirubin [Mass/Vol] 0.7 mg/dL Normal <1.5 [facility] Comment on above: Performed By: #### X M #### [facility] (DEFAULT) [address] [address] Bilirubin.indirect [Mass/Vol] 0.3 mg/dL High <0.3 [facility] Comment on above: Performed By: #### X M #### [facility] (DEFAULT) [address] [address] Protein [Mass/Vol] 7.0 g/dL Normal 6.4-8.3 [facility] Comment on above: Performed By: #### X M #### [facility] (DEFAULT) [address] [address] IMMUNOCOMPROMISED RESPIRATOR Y PANELon 02-14-2025 Adenovirus - Pcr Not detected Normal Not Detected [facility] Comment on above: Order Comment: [...] assay. Performed By: #### X M #### [facility] (DEFAULT) [address] [place] [address] Bordetella Parapertussis Not detected Normal Not Detected [facility] Comment on above: Order Comment: [...] Performed By: #### X M #### [facility] (DEFAULT) [address] [place] [address] Bordetella Pertussis Not detected Normal Not Detected [facility] Comment on above: Order Comment: [...] assay. Performed By: #### X M #### [facility] (DEFAULT) [address] [address] Chlamydia Pneumoniae Not detected Normal Not Detected [facility] Comment on above: Order Comment: [...] assay. Performed By: #### X M #### [facility] (DEFAULT) [address] [address] Coronavirus 229E Not detected Normal Not Detected [facility] Comment on above: Order Comment: [...] assay. Performed By: #### X M #### [facility] (DEFAULT) [address] [place] [address] Coronavirus Hku1 Not detected Normal Not Detected [facility] Comment on above: Order Comment: [...] assay. Performed By: #### X M #### [facility] (DEFAULT) [address] [place] [address] Coronavirus Nl63 Not detected Normal Not Detected [facility] Comment on above: Order Comment: [...] assay. Performed By: #### X M #### [facility] (DEFAULT) [address] [place] [address] Coronavirus Oc43 Not detected Normal Not Detected [facility] Comment on above: Order Comment: [...] assay. Performed By: #### X M #### [facility] (DEFAULT) [address] [place] [address] 28463 Influenza A - Pcr Not detected Normal Not Detected [facility] Comment on above: Order [...] assay. Performed By: #### X M #### [facility] (DEFAULT) [address] [place] [address] Influenza B - Pcr Not detected Normal Not Detected [facility] Comment on above: Order [...] Performed By: #### X M #### [facility] (DEFAULT) [address] [address] Metapneumovirus - Pcr Detected Abnormal Not Detected [facility] Comment on above: Order Comment: Viral [...] Performed By: #### X M #### [facility] (DEFAULT) [address] [place] [address] Mycoplasma Pneumoniae Not detected Normal Not Detected [facility] Comment on above: Order Comment: [...] Performed By: #### X M #### [facility] (DEFAULT) [address] [address] Parainfluenza 1 - Pcr Not detected Normal Not Detected [facility] Comment on above: Order Comment: [...] Performed By: #### X M #### [facility] (DEFAULT) [address] [address] Parainfluenza 2 - Pcr Not detected Normal Not Detected [facility] Comment on above: Order Comment: [...] Performed By: #### X M #### [facility] (DEFAULT) [address] [address] Parainfluenza 3 - Pcr Not detected Normal Not Detected [facility] Comment on above: Order Comment: [...] Performed By: #### X M #### [facility] (DEFAULT) [address] [place] [address] Parainfluenza 4 - Pcr Not detected Normal Not Detected [facility] Comment on above: Order Comment: [...] Performed By: #### X M #### [facility] (DEFAULT) [address] [place] [address] Rhinovirus/Enterovirus - PCR Not detected Normal Not Detected [facility] Comment on above: Order Comment: [...] assay. Performed By: #### X M #### [facility] (DEFAULT) [address] [address] Rsv - Pcr Not detected Normal Not Detected [facility] Comment on above: Order Comment: [...] assay. Performed By: #### X M #### [facility] (DEFAULT) [address] [address] SARS-CoV-2 (COVID-19) RNA RENETTA+probe Ql (Unsp spec) Not detected Normal NOT DETECTED [facility] Comment on above: Order Comment: [...] assay. Performed By: #### X M #### [facility] (DEFAULT) [address] [address] LOWER RESPIRATORY CULTURE, B ACTERIALon 02-14-2025 Bacteria identified Cx Nom (Unsp spec) Normal [facility] Comment on above: Result Comment: Grow th 4471 Light Growth Common oropharyngeal microbes Performed By: #### X M #### [facility] (DEFAULT) [address] [address] Microscopic observation Gram stain Nom (Unsp spec) Normal [facility] Comment on above: Result Comment: Neut rophils, Light Contaminating bacteria and epithelials present Specimen is of optimum quality Performed By: #### X M #### [facility] (DEFAULT) [address] [place] [address] Laboratory - Chemistry and C hemistry - challengeOrdered By: Ganesh Carson on 02-14-2025 Folate [Mass/Vol] 38.32 ng/mL 5.38 - PIN F ng/mL [facility] Laboratory - Chemistry and C hemistry - challengeon 02-14-2025 Cobalamin (Vitamin B12) [Mass/Vol] 1962 pg/mL High 211 - 911 pg/mL [facility] Calcium [Mass/Vol] 8 mg/dL Low 8.6 - 10. 5 mg/dL [facility] Albumin [Mass/Vol] 3.4 g/dL Low 3.5 - 5.0 g/dL [facility] ALP [Catalytic activity/Vol] 274 U/L High 32 - 126 U/L [facility] ALT [Catalytic activity/Vol] 15 U/L 10 - 52 U/L [facility] AST [Catalytic activity/Vol] 41 U/L High 10 - 39 U/L [facility] Bilirubin [Mass/Vol] 0.7 mg/dL [facility] mg/dL [facility] Bilirubin.direct [Mass/Vol] 0.3 mg/dL High NINF - 0.3 mg/dL [facility] Magnesium [Mass/Vol] 1.7 mg/dL 1.6 - 2 .6 mg/dL [facility] Phosphate [Mass/Vol] 2.1 mg/dL Low 2.2 - 4 .6 mg/dL [facility] Protein [Mass/Vol] 7 g/dL 6.4 - 8.3 g/dL [facility] Laboratory - Chemistry and C hemistry - challengeOrdered By: Jay Chin on 02-14-2025 Anion gap [Moles/Vol] 16 mmol/L 7 - 17 mmol/L [facility] Chloride [Moles/Vol] 98 mmol/L 98 - 10 8 mmol/L [facility] CO2 [Moles/Vol] 26 mmol/L 21 - 31 mmol/L [facility] Creatinine [Mass/Vol] 4.06 mg/dL High 0.70 - 1.30 mg/dL [facility] Glucose [Mass/Vol] 100 mg/dL 70 - 179 mg/dL [facility] Osmolality Calc [Osmolality] 285 [facility] Potassium [Moles/Vol] 3.6 mmol/L 3.5 - 5.0 mmol/L [facility] Sodium [Moles/Vol] 136 mmol/L 135 - 145 mmol/L [facility] Urea nitrogen [Mass/Vol] 13 mg/dL 7 - 25 mg/dL [facility] Urea nitrogen/Creatinine [Mass ratio] 3 mg/mg [facility] Laboratory - Coagulationon 0 02-14-2025 aPTT Coag (PPP) [Time] 80.1 s High [facility] aPTT Coag (PPP) [Time] 94.8 s High [facility] aPTT Coag (PPP) [Time] 98.3 s High [facility] Laboratory - CoagulationOrde red By: Simone on 02-14-2025 aPTT Coag (PPP) [Time] 99.9 s High [facility] INR Coag (Bld) [Relative time] 1.7 {INR} High 0.9 - 1.1 [facility] PT Coag (PPP) [Time] 19.5 s High [facility] Laboratory - Hematology and Cell countson 02-14-2025 Erythrocyte distribution width (RBC) [Ratio] 18.6 % High 10.9 - 14.3 % [facility] Hematocrit (Bld) [Volume fraction] 24.3 % Low 39.6 - 48.8 % [facility] Hemoglobin (Bld) [Mass/Vol] 7.4 g/dL Low 13.4 - 16.8 g/dL [facility] MCH (RBC) [Entitic mass] 33.6 pg High 26.1 - 33.3 pg [facility] MCHC (RBC) [Mass/Vol] 30.5 g/dL Low 31.9 - 36.5 g/dL [facility] MCV (RBC) [Entitic vol] 110.5 fL High 79.0 - 94.5 fL [facility] Platelet mean volume (Bld) [Entitic vol] 9.7 fL 8.7 - 12.3 fL [facility] Platelets (Bld) [#/Vol] 157 10*3/uL 146 - 337 K/uL [facility] RBC (Bld) [#/Vol] 2.2 10*6/uL Low [facility] WBC (Bld) [#/Vol] 8.48 10*3/uL 3.73 - 10. 10 K/uL [facility] MAGNESIUMon 02-14-2025 Magnesium [Mass/Vol] 1.7 mg/dL Normal 1.6-2.6 [facility] Comment on above: Performed By: #### X M #### [facility] (DEFAULT) [address] [place] [address] No Panel Informationon 02-14 Interpretation and review of laboratory results Abnormal [facility] Interpretation and review of laboratory results Abnormal [facility] Interpretation and review of laboratory results Abnormal [facility] Interpretation and review of laboratory results Abnormal [facility] Interpretation and review of laboratory results Abnormal [facility] Interpretation and review of laboratory results Normal [facility] Interpretation and review of laboratory results Abnormal [facility] Interpretation and review of laboratory results Abnormal [facility] No Panel InformationOrdered By: Ganesh Carson on 02-14-2025 Interpretation and review of laboratory results Normal [facility] No Panel InformationOrdered By: Unassigned Pacs on 02-14-2025 [facility] Work Phone: No Panel InformationOrdered By: Jay Chin on 02-14-2025 eGFR, CKD-EPI, Male 15 Low - PINF [facility] Interpretation and review of laboratory results Abnormal [facility] No Panel InformationOrdered By: Simone Tong on 02-14-2025 Interpretation and review of laboratory results Abnormal [facility] PHOSPHATE, INORGANICon 02-14 Phosphorous 2.1 mg/dL Low 2.2-4.6 [facility] Comment on above: Performed By: #### X M #### [facility] (DEFAULT) [address] [place] [address] PT,INR,PTTon 02-14-2025 aPTT Coag (Bld) [Time] 99.9 s High 24.0-34.3 [facility] Comment on above: Performed By: #### X M #### [facility] (DEFAULT) [address] [place] [address] INR Coag (PPP) [Relative time] 1.7 {INR} High 0.9-1.1 [facility] Comment on above: Performed By: #### X M #### [facility] (DEFAULT) [address] [place] [address] PT Coag (PPP) [Time] 19.5 s High 11.9-14.2 [facility] Comment on above: Performed By: #### X M #### [facility] (DEFAULT) [address] [place] [address] PTTon 02-14-2025 aPTT Coag (Bld) [Time] 80.1 s High 24.0-34.3 [facility] Comment on above: Order Comment: After [...] Performed By: #### X M #### [facility] (DEFAULT) [address] [address] aPTT Coag (Bld) [Time] 94.8 s High 24.0-34.3 [facility] Comment on above: Order Comment: After [...] medication administration instructions. Performed By: #### H [facility] #### [facility] (DEFAULT) [address] [address] aPTT Coag (Bld) [Time] 98.3 s High 24.0-34.3 [facility] Comment on above: Order Comment: After [...] Performed By: #### X M #### [facility] (DEFAULT) [address] [address] Respiratory virus DNA+RNA NA A+probe Nom (Unsp spec)Ordered By: Jairon Jiménez on 02-14-2025 Adenovirus DNA RENETTA+probe Nom (Unsp spec) Not detected Not Detected [facility] B. parapertussis DNA RENETTA+probe Ql (Unsp spec) Not detected Not Detected [facility] B. pertussis DNA RENETTA+probe Ql (Unsp spec) Not detected Not Detected [facility] C. pneumoniae DNA RENETTA+probe Ql (Unsp spec) Not detected Not Detected [facility] FLUAV RNA RENETTA+probe Ql (Unsp spec) Not detected Not Detected [facility] FLUBV RNA RENETTA+probe Ql (Unsp spec) Not detected Not Detected [facility] HCoV 229E RNA RENETTA+non-probe Ql (Nph) Not detected Not Detected [facility] HCoV HKU1 RNA RENETTA+non-probe Ql (Nph) Not detected Not Detected [facility] HCoV NL63 RNA RENETTA+non-probe Ql (Nph) Not detected Not Detected [facility] HCoV OC43 RNA RENETTA+non-probe Ql (Nph) Not detected Not Detected [facility] hMPV A RNA RENETTA+probe Ql (Unsp spec) Detected Abnormal Not Detected [facility] Interpretation and review of laboratory results Abnormal [facility] M. pneumoniae DNA RENETTA+probe Ql (Unsp spec) Not detected Not Detected [facility] Parainfluenza virus 1 RNA RENETTA+probe Ql (Unsp spec) Not detected Not Detected [facility] Parainfluenza virus 2 RNA RENETTA+probe Ql (Unsp spec) Not detected Not Detected [facility] Parainfluenza virus 3 RNA RENETTA+probe Ql (Unsp spec) Not detected Not Detected [facility] Parainfluenza virus 4 RNA RENETTA+probe Ql (Unsp spec) Not detected Not Detected [facility] Rhinovirus+Enterovirus RNA RENETTA+probe Ql (Unsp spec) Not detected Not Detected [facility] RSV RNA RENETTA+probe Ql (Unsp spec) Not detected Not Detected [facility] SARS-CoV-2 (COVID-19) RNA RENETTA+probe Ql (Unsp spec) Not detected NOT DETECTED [facility] VITAMIN B12on 02-14-2025 Cobalamin (Vitamin B12) [Mass/Vol] 1962 pg/mL High 211-911 [facility] Comment on above: Result Comment: Test ing of Methylmalonic Acid and Intrinsic Factor Blocking Antibody are recommended if clinical suspicion for pernicious anemia due to B12 deficiency is high for patients with intermediate B12 levels (211 to 400 pg/mL) to rule out spurious heterophile antibodies. Performed By: #### X M #### [facility] (DEFAULT) [address] [address] CALCIUMon 02-13-2025 Calcium [Mass/Vol] 7.5 mg/dL Low 8.6-10.5 [facility] Comment on above: Performed By: #### X M #### [facility] (DEFAULT) [address] [address] CBC AND ELECTRONIC DIFFon Abs Baso Auto < Normal 0.00-0.09 [facility] Comment on above: Performed By: #### X M #### [facility] (DEFAULT) [address] [address] Basophils/100 WBC (Bld) 0.4 % Normal O [facility] Comment on above: Performed By: #### X M #### [facility] (DEFAULT) [address] [address] DIFF STATUS Electronic Differential Normal [facility] Comment on above: Performed By: #### X M #### [facility] (DEFAULT) [address] [address] Eosinophils (Bld) [#/Vol] 0.14 10*3/uL Normal 0.00-0.48 [facility] Comment on above: Performed By: #### X M #### [facility] (DEFAULT) [address] [address] Eosinophils/100 WBC (Bld) 1.8 % Normal [facility] Comment on above: Performed By: #### X M #### [facility] (DEFAULT) [address] [place] [address] Hematocrit (Bld) [Volume fraction] 24.4 % Low 39.6-48.8 [facility] Comment on above: Performed By: #### X M #### [facility] (DEFAULT) [address] [place] [address] Hemoglobin (Bld) [Mass/Vol] 7.3 g/dL Low 13.4-16.8 [facility] Comment on above: Performed By: #### X M #### [facility] (DEFAULT) [address] [address] Immature Grans % 0.8 % Normal [facility] Comment on above: Performed By: #### X M #### [facility] (DEFAULT) [address] [place] [address] Immature Grans Absolute 0.06 K/uL Normal <=0.[address] [facility] Comment on above: Performed By: #### X M #### [facility] (DEFAULT) [address] [place] [address] Lymphocytes (Bld) [#/Vol] 1.34 10*3/uL Normal 0.83-3.57 [facility] Comment on above: Performed By: #### X M #### [facility] (DEFAULT) [address] [address] Lymphocytes/100 WBC (Bld) 16.9 % Normal [facility] Comment on above: Performed By: #### X M #### [facility] (DEFAULT) [address] [address] MCV (RBC) [Entitic vol] 110.4 fL High 79.0-94.[address] [facility] Comment on above: Performed By: #### X M #### [facility] (DEFAULT) [address] [place] [address] Mean Cell Hgb 33.0 pg Normal 26.1-33.3 [facility] Comment on above: Performed By: #### X M #### [facility] (DEFAULT) [address] [address] Mean Cell Hgb Conc 29.9 g/dL Low 31.9-36.5 [facility] Comment on above: Performed By: #### X M #### [facility] (DEFAULT) [address] [address] Monocytes (Bld) [#/Vol] 0.90 10*3/uL Normal 0.24-0.93 [facility] Comment on above: Performed By: #### X M #### [facility] (DEFAULT) [address] [address] Monocytes/100 WBC (Bld) 11.3 % Normal O [facility] Comment on above: Performed By: #### X M #### [facility] (DEFAULT) [address] [address] Nucleated RBC 0.0 /100 WBC Normal <=0.2 [facility] Comment on above: Performed By: #### X M #### [facility] (DEFAULT) [address] [address] Platelet mean volume (Bld) [Entitic vol] 9.5 fL Normal 8.7-12.3 [facility] Comment on above: Performed By: #### X M #### [facility] (DEFAULT) [address] [address] Platelets (Bld) [#/Vol] 139 10*3/uL Low 146-337 [facility] Comment on above: Performed By: #### X M #### [facility] (DEFAULT) [address] [address] RBC (Bld) [#/Vol] 2.21 10*6/uL Low 4.38-5.83 [facility] Comment on above: Performed By: #### X M #### [facility] (DEFAULT) [address] [place] [address] RBC Distribution 18.6 % High 10.9-14.3 [facility] Comment on above: Performed By: #### X M #### [facility] (DEFAULT) [address] [place] [address] Segs + Bands Auto 68.8 % Normal [facility] Comment on above: Performed By: #### X M #### [facility] (DEFAULT) [address] [address] Segs + Bands,Absolute Auto 5.46 K/uL Normal 1.57-6.19 [facility] Comment on above: Performed By: #### X M #### [facility] (DEFAULT) [address] [address] WBC (Bld) [#/Vol] 7.93 10*3/uL Normal 3.73-10.10 [facility] Comment on above: Performed By: #### X M #### [facility] (DEFAULT) [address] [address] CBC,PLATELETSon 02-13-2025 Hematocrit (Bld) [Volume fraction] 24.7 % Low 39.6-48.8 [facility] Comment on above: Order Comment: Basel ine: within 24 hours prior to treatment initiationOngoing: as needed for monitoring Performed By: #### X M #### [facility] (DEFAULT) [address] [address] Hemoglobin (Bld) [Mass/Vol] 7.6 g/dL Low 13.4-16.8 [facility] Comment on above: Order Comment: Basel ine: within 24 hours prior to treatment initiationOngoing: as needed for monitoring Performed By: #### X M #### [facility] (DEFAULT) [address] [address] MCV (RBC) [Entitic vol] 109.8 fL High 79.0-94.5 [facility] Comment on above: Order Comment: Basel ine: within 24 hours prior to treatment initiationOngoing: as needed for monitoring Performed By: #### X M #### [facility] (DEFAULT) [address] [address] Mean Cell Hgb 33.8 pg High 26.1-33.3 [facility] Comment on above: Order Comment: Basel ine: within 24 hours prior to treatment initiationOngoing: as needed for monitoring Performed By: #### X M #### [facility] (DEFAULT) [address] [place] [address] Mean Cell Hgb Conc 30.8 g/dL Low 31.9-36.5 [facility] Comment on above: Order Comment: Basel ine: within 24 hours prior to treatment initiationOngoing: as needed for monitoring Performed By: #### X M #### [facility] (DEFAULT) [address] [address] Platelet mean volume (Bld) [Entitic vol] 10.1 fL Normal 8.7-12.3 [facility] Comment on above: Order Comment: Basel ine: within 24 hours prior to treatment initiationOngoing: as needed for monitoring Performed By: #### X M #### [facility] (DEFAULT) [address] [address] Platelets (Bld) [#/Vol] 156 10*3/uL Normal 146-337 [facility] Comment on above: Order Comment: Basel ine: within 24 hours prior to treatment initiationOngoing: as needed for monitoring Performed By: #### X M #### [facility] (DEFAULT) [address] [address] RBC (Bld) [#/Vol] 2.25 10*6/uL Low 4.38-5.83 [facility] Comment on above: Order Comment: Basel ine: within 24 hours prior to treatment initiationOngoing: as needed for monitoring Performed By: #### X M #### [facility] (DEFAULT) [address] [address] RBC Distribution 18.9 % High 10.9-14.3 [facility] Comment on above: Order Comment: Basel ine: within 24 hours prior to treatment initiationOngoing: as needed for monitoring Performed By: #### X M #### [facility] (DEFAULT) [address] [address] WBC (Bld) [#/Vol] 8.91 10*3/uL Normal 3.73-10.10 [facility] Comment on above: Order Comment: Basel ine: within 24 hours prior to treatment initiationOngoing: as needed for monitoring Performed By: #### X M #### [facility] (DEFAULT) [address] [address] CHEM 7 (LYTES,BUN,CREA,GLUC) on 02-13-2025 Anion gap [Moles/Vol] 16 mmol/L Normal 7-17 [facility] Comment on above: Performed By: #### X M #### [facility] (DEFAULT) [address] [address] Chloride [Moles/Vol] 97 mmol/L Low 98-108 [facility] Comment on above: Performed By: #### X M #### [facility] (DEFAULT) [address] [address] CO2 [Moles/Vol] 31 mmol/L Normal 21-31 [facility] Comment on above: Performed By: #### X M #### [facility] (DEFAULT) [address] [address] Creatinine [Mass/Vol] 7.16 mg/dL High 0.70-1.30 [facility] Comment on above: Performed By: #### X M #### [facility] (DEFAULT) [address] [address] GFR/1.73 sq M.predicted among non-blacks MDRD (S/P/Bld) [Vol rate/Area] 7 mL/min/{1.73_m2} Low >=60 [facility] Comment on above: Result Comment: Repo rted eGFR is based on the CKD-EPI 2020 equation using creatinine, age, and sex. Performed By: #### X M #### [facility] (DEFAULT) [address] [place] [address] Glucose [Mass/Vol] 87 mg/dL Normal Nonfastin -179 mg/dL; Fastin-99 [facility] Comment on above: Performed By: #### X M #### [facility] (DEFAULT) [address] [place] [address] Osmolality [Osmolality] 298 mosm/kg Normal 278-305 [facility] Comment on above: Performed By: #### X M #### [facility] (DEFAULT) [address] [place] [address] Potassium [Moles/Vol] 3.6 mmol/L Normal 3.5-5.0 [facility] Comment on above: Performed By: #### X M #### [facility] (DEFAULT) [address] [place] [address] Sodium [Moles/Vol] 140 mmol/L Normal 135-145 [facility] Comment on above: Performed By: #### X M #### [facility] (DEFAULT) [address] [place] [address] Urea nitrogen [Mass/Vol] 33 mg/dL High 7-25 [facility] Comment on above: Performed By: #### X M #### [facility] (DEFAULT) [address] [place] [address] Urea nitrogen/Creatinine [Mass ratio] 5 mg/mg Normal [facility] Comment on above: Performed By: #### X M #### [facility] (DEFAULT) [address] [place] [address] CHEST (INTERPRETATION - O UTSIDE IMAGE)on [...] requested. Image quality is good but a solar technician view was not provided STUDY DESCRIPTION: CT [...] groundglass attenuation bilaterally, suggestive of pneumonia. Normal [facility] CT Cheston 02-13-2025 RADIOLOGY RADIOLOGY [facility] Radiology Study observation (narrative) [facility] ChestOrdered By: Kaden Patterson on 02-13-2025 [facility] Work Phone: Chronic hepatitis differenti ation between hepatitis B and C virus panelon 02-13-2025 HBV core IgG+IgM Ql (S) Negative Negative O [facility] HBV surface Ab IA Ql (S) Negative Negative [facility] HCV Ab Ql (S) Negative Negative [facility] Interpretation and review of laboratory results Normal [facility] DIALYSIS HEP PANEL-CHRONICon 02-13-2025 Hep B Core Ab,Total (IgG+IgM) Negative Normal Negative [facility] Comment on above: Performed By: #### X M #### [facility] (DEFAULT) [address] [place] [address] Hep B Surface Ab Negative Normal Negative [facility] Comment on above: Performed By: #### X M #### [facility] (DEFAULT) [address] [place] [address] Hepatitis C Antibody Negative Normal Negative [facility] Comment on above: Performed By: #### X M #### [facility] (DEFAULT) [address] [place] [address] Electrocardiogram reportOrde red By: Niels Flores on 02-13-2025 EKG study [facility] Work Phone: HEP B SURFACE AG-Marylou 01-18 Hepatitis B Surface Ag-Stat Negative Normal Negative [facility] Comment on above: Performed By: #### X M #### [facility] (DEFAULT) [address] [place] [address] HEPATIC FUNCTION PANELon Albumin [Mass/Vol] 3.3 g/dL Low 3.5-5.0 [facility] Comment on above: Performed By: #### X M #### [facility] (DEFAULT) [address] [place] [address] ALP [Catalytic activity/Vol] 265 U/L High 32-126 [facility] Comment on above: Performed By: #### X M #### [facility] (DEFAULT) [address] [place] [address] ALT [Catalytic activity/Vol] 19 U/L Normal 10-52 [facility] Comment on above: Performed By: #### X M #### [facility] (DEFAULT) [address] [place] [address] AST [Catalytic activity/Vol] 40 U/L High 10-39 [facility] Comment on above: Performed By: #### X M #### [facility] (DEFAULT) [address] [place] [address] Bilirubin [Mass/Vol] 0.7 mg/dL Normal <1.5 [facility] Comment on above: Performed By: #### X M #### [facility] (DEFAULT) [address] [place] [address] Bilirubin.indirect [Mass/Vol] 0.3 mg/dL High <0.3 [facility] Comment on above: Performed By: #### X M #### [facility] (DEFAULT) [address] [place] [address] Protein [Mass/Vol] 6.8 g/dL Normal 6.4-8.3 [facility] Comment on above: Performed By: #### X M #### [facility] (DEFAULT) [address] [place] [address] LACTATE DEHYDROGENASEon 01-18 LD Total 301 U/L High 100-190 [facility] Comment on above: Performed By: #### P TT #### [facility] (DEFAULT) [address] [place] [address] Laboratory - Chemistry and C hemistry - challengeon 02-13-2025 LDH Lactate to pyruvate reaction [Catalytic activity/Vol] 301 U/L High 100 - 190 U/L [facility] Protein [Mass/Vol] 7 g/dL 6.4 - 8.3 g/dL [facility] Albumin [Mass/Vol] 3.3 g/dL Low 3.5 - 5.0 g/dL [facility] ALP [Catalytic activity/Vol] 265 U/L High 32 - 126 U/L [facility] ALT [Catalytic activity/Vol] 19 U/L 10 - 52 U/L [facility] Anion gap [Moles/Vol] 16 mmol/L 7 - 17 mmol/L [facility] AST [Catalytic activity/Vol] 40 U/L High 10 - 39 U/L [facility] Bilirubin [Mass/Vol] 0.7 mg/dL NINF - 1.5 mg/dL [facility] Bilirubin.direct [Mass/Vol] 0.3 mg/dL High NINF - 0.3 mg/dL [facility] Calcium [Mass/Vol] 7.5 mg/dL Low 8.6 - 10. 5 mg/dL [facility] Chloride [Moles/Vol] 97 mmol/L Low 98 - 10 8 mmol/L [facility] CO2 [Moles/Vol] 31 mmol/L 21 - 31 mmol/L [facility] Creatinine [Mass/Vol] 7.16 mg/dL High 0.70 - 1.30 mg/dL [facility] Glucose [Mass/Vol] 87 mg/dL 70 - 179 mg/dL [facility] Magnesium [Mass/Vol] 1.8 mg/dL 1.6 - 2 .6 mg/dL [facility] Osmolality Calc [Osmolality] 298 [facility] Phosphate [Mass/Vol] 2.9 mg/dL 2.2 - 4 .6 mg/dL [facility] Potassium [Moles/Vol] 3.6 mmol/L 3.5 - 5.0 mmol/L [facility] Protein [Mass/Vol] 6.8 g/dL 6.4 - 8.3 g/dL [facility] Sodium [Moles/Vol] 140 mmol/L 135 - 145 mmol/L [facility] Urea nitrogen [Mass/Vol] 33 mg/dL High 7 - 25 mg/dL [facility] Urea nitrogen/Creatinine [Mass ratio] 5 mg/mg [facility] Laboratory - Coagulationon 0 02-13-2025 aPTT Coag (PPP) [Time] 60.5 s High [facility] INR Coag (Bld) [Relative time] 1.7 {INR} High 0.9 - 1.1 [facility] PT Coag (PPP) [Time] 20 s High [facility] Laboratory - Hematology and Cell countson 02-13-2025 Erythrocyte distribution width (RBC) [Ratio] 18.9 % High 10.9 - 14.3 % [facility] Hematocrit (Bld) [Volume fraction] 24.7 % Low 39.6 - 48.8 % [facility] Hemoglobin (Bld) [Mass/Vol] 7.6 g/dL Low 13.4 - 16.8 g/dL [facility] MCH (RBC) [Entitic mass] 33.8 pg High 26.1 - 33.3 pg [facility] MCHC (RBC) [Mass/Vol] 30.8 g/dL Low 31.9 - 36.5 g/dL [facility] MCV (RBC) [Entitic vol] 109.8 fL High 79.0 - 94.5 fL [facility] Platelet mean volume (Bld) [Entitic vol] 10.1 fL 8.7 - 12.3 fL [facility] Platelets (Bld) [#/Vol] 156 10*3/uL 146 - 337 K/uL [facility] RBC (Bld) [#/Vol] 2.25 10*6/uL Low [facility] WBC (Bld) [#/Vol] 8.91 10*3/uL 3.73 - 10. 10 K/uL [facility] Basophils (Bld) [#/Vol] K/uL 0.00 - 0.09 K/uL [facility] Basophils/100 WBC (Bld) 0.4 % [facility] Differential cell count method Nom (Bld) Electronic Differential [facility] Eosinophils (Bld) [#/Vol] 0.14 10*3/uL 0.00 - 0.48 K/uL [facility] Eosinophils/100 WBC (Bld) 1.8 % [facility] Erythrocyte distribution width (RBC) [Ratio] 18.6 % High 10.9 - 14.3 % [facility] Hematocrit (Bld) [Volume fraction] 24.4 % Low 39.6 - 48.8 % [facility] Hemoglobin (Bld) [Mass/Vol] 7.3 g/dL Low 13.4 - 16.8 g/dL [facility] Immature granulocytes (Bld) [#/Vol] 0.06 10*3/uL NINF - 0.07 K/uL [facility] Immature granulocytes/100 WBC (Bld) 0.8 % [facility] Lymphocytes (Bld) [#/Vol] 1.34 10*3/uL 0.83 - 3.57 K/uL [facility] Lymphocytes/100 WBC (Bld) 16.9 % [facility] MCH (RBC) [Entitic mass] 33 pg 26.1 - 33.3 pg [facility] MCHC (RBC) [Mass/Vol] 29.9 g/dL Low 31.9 - 36.5 g/dL [facility] MCV (RBC) [Entitic vol] 110.4 fL High 79.0 - 94.5 fL [facility] Monocytes (Bld) [#/Vol] 0.9 10*3/uL 0.24 - 0.93 K/uL [facility] Monocytes/100 WBC (Bld) 11.3 % [facility] Neutrophils (Bld) [#/Vol] 5.46 10*3/uL 1.57 - 6.19 K/uL [facility] Nucleated RBC/100 WBC (Bld) [Ratio] 0 % [facility] Platelet mean volume (Bld) [Entitic vol] 9.5 fL 8.7 - 12.3 fL [facility] Platelets (Bld) [#/Vol] 139 10*3/uL Low 146 - 337 K/uL [facility] RBC (Bld) [#/Vol] 2.21 10*6/uL Low [facility] Segmented neutrophils/100 WBC (Bld) 68.8 % [facility] WBC (Bld) [#/Vol] 7.93 10*3/uL 3.73 - 10. 10 K/uL [facility] Laboratory - Microbiology an d Antimicrobial susceptibilityOrdered By: Helga Yang on 02-13-2025 HBV surface Ag Ql (S) Negative Negative [facility] MAGNESIUMon 02-13-2025 Magnesium [Mass/Vol] 1.8 mg/dL Normal 1.6-2.6 [facility] Comment on above: Performed By: #### X M #### [facility] (DEFAULT) [address] [place] [id number] No Panel Informationon 02-13 Interpretation and review of laboratory results Abnormal [facility] Interpretation and review of laboratory results Abnormal [facility] Interpretation and review of laboratory results Abnormal [facility] Interpretation and review of laboratory results Normal [facility] Interpretation and review of laboratory results Abnormal [facility] eGFR, CKD-EPI, Male 7 Low - PINF [facility] Interpretation and review of laboratory results Abnormal [facility] Interpretation and review of laboratory results Normal [facility] Interpretation and review of laboratory results Abnormal [facility] No Panel InformationOrdered By: Helga Yang on 02-13-2025 Interpretation and review of laboratory results Normal [facility] PHOSPHATE, INORGANICon 02-13 Phosphorous 2.9 mg/dL Normal 2.2-4.6 [facility] Comment on above: Performed By: #### X M #### [facility] (DEFAULT) [address] [place] [id number] PROTEIN TOTALon 02-13-2025 Protein [Mass/Vol] 7.0 g/dL Normal 6.4-8.3 [facility] Comment on above: Performed By: #### P TT #### [facility] (DEFAULT) [address] [place] [address] PROTIME-INRon 02-13-2025 INR Coag (PPP) [Relative time] 1.7 {INR} High 0.9-1.1 [facility] Comment on above: Order Comment: Basel ine: within 24 hours prior to treatment initiationCheck for duplicate INR orders within the last 24 hours Performed By: #### X M #### [facility] (DEFAULT) [address] [id number] PT Coag (PPP) [Time] 20.0 s High 11.9-14.2 [facility] Comment on above: Order Comment: Basel ine: within 24 hours prior to treatment initiationCheck for duplicate INR orders within the last 24 hours Performed By: #### X M #### [facility] (DEFAULT) [address] [id number] PTTon 02-13-2025 aPTT Coag (Bld) [Time] 60.5 s High 24.0-34.3 [facility] Comment on above: Order Comment: Draw prior to initiation of intravenous Heparin. Performed By: #### X M #### [facility] (DEFAULT) [address] [address] ALP [Catalytic activity/Vol] Ordered By: Kaveh Hadley on 02-12-2025 Serum or plasma alkaline phosphatase measurement 361 U/L High 40-129 [facility] ALT [Catalytic activity/Vol] Ordered By: Kaveh Hadley on 02-12-2025 Serum or plasma alanine aminotransferase (ALT) measurement 25 U/L <47 [facility] Absolute lymphocyte countOrd ered By: Kaveh Hadley on 02-12-2025 Lymphocytes Auto (Unsp spec) [#/Vol] 1.03 10*3/uL 0.83-4.51 [facility] Absolute lymphocyte countOrd ered By: Castro Ferrara on 02-12-2025 Lymphocytes Auto (Unsp spec) [#/Vol] 1.23 10*3/uL 0.83-4.51 [facility] Absolute neutrophil countOrd ered By: Kaveh Hadley on 02-12-2025 Absolute neutrophil count 5.9 X10^3/uL 2.0-7.7 [facility] Absolute neutrophil countOrd ered By: Castro Ferrara on 02-12-2025 Absolute neutrophil count 5.7 X10^3/uL 2.0-7.7 [facility] Activated partial thrombopla stin time (aPTT) in platelet poor plasma by coagulation aOrdered By: Kaveh Hadley on 02-12-2025 aPTT Coag (PPP) [Time] 66.1 s High 24.1-36.2 [facility] Albumin [Mass/Vol]Ordered By : Kaveh Hadley on 02-12-2025 Serum or plasma albumin measurement (mass/volume) 3.4 g/dL 3.4-4.8 [facility] Albumin/Globulin [Mass ratio ]Ordered By: Kaveh Hadley on 02-12-2025 Serum or plasma albumin/globulin mass ratio 1.0 RATIO 0.9-2.4 [facility] Anion gap [Moles/Vol]Ordered By: Kaveh Hadley on 02-12-2025 Anion gap in Serum or Plasma 21 High 5-15 [facility] Anion gap [Moles/Vol]Ordered By: Castro Ferrara on 02-12-2025 Anion gap in Serum or Plasma 20 High 5-15 [facility] Anion gap in Serum or Plasma Ordered By: Kaveh Hadley on 02-12-2025 Anion gap [Moles/Vol] 21 mmol/L High 5-15 [facility] Anion gap in Serum or Plasma Ordered By: Castro Ferrara on 02-12-2025 Anion gap [Moles/Vol] 20 mmol/L High 5-15 [facility] Automated lymphocyte count a s percentage of total leukocytesOrdered By: Kaveh Hadley on 02-12-2025 Lymphocytes/100 WBC Auto (Unsp spec) 13.1 % Low [facility] Automated lymphocyte count a s percentage of total leukocytesOrdered By: Castro Ferrara on 02-12-2025 Lymphocytes/100 WBC Auto (Unsp spec) 15.8 % Low - [facility] BUN/creatinine ratioOrdered By: Kaveh Hadley on 02-12-2025 Urea nitrogen/Creatinine [Mass ratio] 4.4 mg/mg Low 10- [facility] BUN/creatinine ratio 4.4 RATIO Low 10-20 [facility] BUN/creatinine ratioOrdered By: Castro Ferrara on 02-12-2025 Urea nitrogen/Creatinine [Mass ratio] 4.2 mg/mg Low 10-20 [facility] BUN/creatinine ratio 4.2 RATIO Low 10-20 [facility] Basophil percentageOrdered B y: Kaveh Hadley on 02-12-2025 Basophils/100 WBC (Bld) 0.4 % 0-1 [facility] Basophil percentage 0.4 % 0-1 [facility] Basophil percentageOrdered B y: Castro Ferrara on 02-12-2025 Basophils/100 WBC (Bld) 0.4 % 0-1 [facility] Basophil percentage 0.4 % 0-1 [facility] Bilirubin, totalOrdered By: Kaveh Hadley on 02-12-2025 Bilirubin [Mass/Vol] 0.59 mg/dL 0.00-1.30 [facility] Bilirubin, total 0.59 mg/dL 0.00-1.30 [facility] Blood cultureOrdered By: Michelet Hadley on 02-12-2025 Bacteria identified Cx Nom (Bld) No growth in 5 days. [facility] Bacteria identified Cx Nom (Bld) No growth in 5 days. [facility] Blood manual differential co mment interpretation (narrative result)Ordered By: Castro Ferrara on 02-12-2025 Manual differential comment [place] (Bld) [Interp] @SLIDESCANNED [facility] Calcium [Mass/Vol]Ordered By : Kaveh Hadley on 02-12-2025 Serum or plasma calcium measurement (mass/volume) 8.1 mg/dL 7.6-11.0 [facility] Calcium [Mass/Vol]Ordered By : Castro Ferrara on 02-12-2025 Serum or plasma calcium measurement (mass/volume) 8.3 mg/dL 7.6-11.0 [facility] Carbon dioxide, total [Moles /volume] in Central venous bloodOrdered By: Kaveh Hadley on 02-12-2025 CO2 [Moles/Vol] 23.1 mmol/L 21.0-32.0 [facility] Carbon dioxide, total [Moles/volume] in Central venous blood 23.1 mmol/L 21.0-32.0 [facility] Carbon dioxide, total [Moles /volume] in Central venous bloodOrdered By: Castro Ferrara on 02-12-2025 CO2 [Moles/Vol] 23.2 mmol/L 21.0-32.0 [facility] Carbon dioxide, total [Moles/volume] in Central venous blood 23.2 mmol/L 21.0-32.0 [facility] Chloride assayOrdered By: Rommel aHdley on 02-12-2025 Chloride [Moles/Vol] 94 mmol/L Low 98-108 [facility] Chloride assay 94 mmol/L Low 98-108 [facility] Chloride assayOrdered By: Shailesh Ferrara on 02-12-2025 Chloride [Moles/Vol] 93 mmol/L Low 98-108 [facility] Chloride assay 93 mmol/L Low 98-108 [facility] Creatinine [Mass/Vol]Ordered By: Kaveh Hadley on 02-12-2025 Serum creatinine measurement (mass/volume) 6.24 mg/dL High 0.70-1.20 [facility] Creatinine [Mass/Vol]Ordered By: Castro Ferrara on 02-12-2025 Serum creatinine measurement (mass/volume) 5.84 mg/dL High 0.70-1.20 [facility] Eosinophil percentageOrdered By: Kaveh Hadley on 02-12-2025 Eosinophils/100 WBC (Bld) 1.7 % 0-5 [facility] Eosinophil percentage 1.7 % 0-5 [facility] Eosinophil percentageOrdered By: Castro Ferrara on 02-12-2025 Eosinophils/100 WBC (Bld) 1.9 % 0-5 [facility] Eosinophil percentage 1.9 % 0-5 [facility] Erythrocyte distribution wid th (RBC) [Entitic vol]Ordered By: Kaveh Hadley on 02-12-2025 Erythrocyte distribution width standard deviation 71.6 fl High 35.1-43.9 [facility] Erythrocyte distribution wid th (RBC) [Entitic vol]Ordered By: Castro Ferrara on 02-12-2025 Erythrocyte distribution width standard deviation 73.6 fl High 35.1-43.9 [facility] Erythrocyte distribution wid th (RBC) [Ratio]Ordered By: Kaveh Hadley on 02-12-2025 Erythrocyte distribution width ratio 18.6 % High 11.6-14.6 [facility] Erythrocyte distribution wid th (RBC) [Ratio]Ordered By: Castro Ferrara on 02-12-2025 Erythrocyte distribution width ratio 18.7 % High 11.6-14.6 [facility] Erythrocyte distribution wid th ratioOrdered By: Kaveh Hadley on 02-12-2025 Erythrocyte distribution width (RBC) [Ratio] 18.6 % High 11.6-14.6 [facility] Erythrocyte distribution wid th ratioOrdered By: Castro Ferrara on 02-12-2025 Erythrocyte distribution width (RBC) [Ratio] 18.7 % High 11.6-14.6 [facility] Erythrocyte distribution wid th standard deviationOrdered By: Kaveh Hadley on 02-12-2025 Erythrocyte distribution width (RBC) [Ratio] 71.6 fl High 35.1-43.9 [facility] Erythrocyte distribution wid th standard deviationOrdered By: Castro Ferrara on 02-12-2025 Erythrocyte distribution width (RBC) [Ratio] 73.6 fl High 35.1-43.9 [facility] Erythrocyte morphology asses smentOrdered By: Kaveh Hadley on 02-12-2025 RBC morphology finding Nom (Bld) N CHROM NORMAL NORM C&C [facility] Erythrocyte morphology asses smentOrdered By: Castro Ferrara on 02-12-2025 RBC morphology finding Nom (Bld) N CHROM NORMAL NORM C&C [facility] Estimation of creatinine omkar aranceOrdered By: Kaveh Hadley on 02-12-2025 Estimation of creatinine clearance 9.56 ml/min Low 50-250 [facility] GFR/1.73 sq M.predicted bonnie g non-blacks MDRD (S/P/Bld) [Vol rate/Area]Ordered By: Kaveh Hadley on 02-12-2025 Glomerular filtration rate (GFR) estimation/1.73 sq m using serum, plasma, or whole b 9 Low >60 [facility] GFR/1.73 sq M.predicted bonnie g non-blacks MDRD (S/P/Bld) [Vol rate/Area]Ordered By: Castro Ferrara on 02-12-2025 Glomerular filtration rate (GFR) estimation/1.73 sq m using serum, plasma, or whole b 9 Low >60 [facility] Glomerular filtration rate ( GFR) estimation/1.73 sq m using serum, plasma, or whole bOrdered By: Kaveh Hadley on 02-12-2025 GFR/1.73 sq M.predicted among non-blacks MDRD (S/P/Bld) [Vol rate/Area] 9 mL/min/{1.73_m2} Low >60 [facility] Glomerular filtration rate ( GFR) estimation/1.73 sq m using serum, plasma, or whole bOrdered By: Castro Ferrara on 02-12-2025 GFR/1.73 sq M.predicted among non-blacks MDRD (S/P/Bld) [Vol rate/Area] 9 mL/min/{1.73_m2} Low >60 [facility] Glucose [Mass/Vol]Ordered By : Kaveh Hadley on 02-12-2025 Serum glucose measurement (mass/volume) 97 mg/dL 70-99 [facility] Glucose [Mass/Vol]Ordered By : Castro Ferrara on 02-12-2025 Serum glucose measurement (mass/volume) 91 mg/dL 70-99 [facility] Hematocrit Auto (Bld) [Volum e fraction]Ordered By: Kaveh Hadley on 02-12-2025 Hematocrit (Bld) [Volume fraction] 25.0 % Low 40-54 [facility] Automated blood hematocrit (percentage) 25.0 % Low 40-54 [facility] Hematocrit Auto (Bld) [Volum e fraction]Ordered By: Castro Ferrara on 02-12-2025 Hematocrit (Bld) [Volume fraction] 24.8 % Low 40-54 [facility] Automated blood hematocrit (percentage) 24.8 % Low 40-54 [facility] Hemoglobin measurementOrdere d By: Kaveh Hadley on 02-12-2025 Hemoglobin (Bld) [Mass/Vol] 8.1 g/dL Low 13.0-16.5 [facility] Hemoglobin measurement 8.1 g/dL Low 13.0-16.5 [facility] Hemoglobin measurementOrdere d By: Castro Ferrara on 02-12-2025 Hemoglobin (Bld) [Mass/Vol] 7.8 g/dL Low 13.0-16.5 [facility] Hemoglobin measurement 7.8 g/dL Low 13.0-16.5 [facility] Hypochromatic red blood cell detectionOrdered By: Kaveh Hadley on 02-12-2025 Hypochromia Ql (Bld) RARE [facility] Hypochromatic red blood cell detection RARE [facility] Immature granulocytes/100 WB C Auto (Bld)Ordered By: Kaveh Hadley on 02-12-2025 Immature granulocytes/100 WBC (Bld) 1.000 % High 0.0-0.9 [facility] Automated immature granulocyte percentage 1.000 % High 0.0-0.9 [facility] Immature granulocytes/100 WB C Auto (Bld)Ordered By: Castro Ferrara on 02-12-2025 Immature granulocytes/100 WBC (Bld) 0.800 % 0.0-0.9 [facility] Automated immature granulocyte percentage 0.800 % 0.0-0.9 [facility] International normalized rat io (INR) calculationOrdered By: Kaveh Hadley on 02-12-2025 International normalized ratio (INR) calculation 1.4 [facility] Lactic acid measurementOrder ed By: Kaveh Hadley on 02-12-2025 Lactic acid measurement 3.0 mmol/L High 0.0-2.0 [facility] Lower GI hemoglobin IA Ql (S tl)Ordered By: Kaveh Hadley on 02-12-2025 Stool gastrointestinal hemoglobin detection by immunologic method Positive Abnormal [facility] Lymphocytes Auto (Unsp spec) [#/Vol]Ordered By: Kaveh Hadley on 02-12-2025 Absolute lymphocyte count 1.03 X10^3/uL 0.83-4.51 [facility] Lymphocytes Auto (Unsp spec) [#/Vol]Ordered By: Castro Ferrara on 02-12-2025 Absolute lymphocyte count 1.23 X10^3/uL 0.83-4.51 [facility] Lymphocytes/100 WBC Auto (Un sp spec)Ordered By: Kaveh Hadley on 02-12-2025 Automated lymphocyte count as percentage of total leukocytes 13.1 % Low [facility] Lymphocytes/100 WBC Auto (Un sp spec)Ordered By: Castro Ferarra on 02-12-2025 Automated lymphocyte count as percentage of total leukocytes 15.8 % Low [facility] MCV (RBC) [Entitic vol]Order ed By: Kaveh Hadley on 02-12-2025 MCV (mean corpuscular volume) determination 106.8 fL High 80-94 [facility] MCV (RBC) [Entitic vol]Order ed By: Castro Ferrara on 02-12-2025 MCV (mean corpuscular volume) determination 108.3 fL High 80-94 [facility] MCV (mean corpuscular volume ) determinationOrdered By: Kaveh Hadley on 02-12-2025 MCV (RBC) [Entitic vol] 106.8 fL High 80-94 [facility] MCV (mean corpuscular volume ) determinationOrdered By: Castro Ferrara on 02-12-2025 MCV (RBC) [Entitic vol] 108.3 fL High 80-94 [facility] Macrocytes detectionOrdered By: Kaveh Hadley on 02-12-2025 Macrocytes Ql (Bld) 1+ [facility] Macrocytes detection 1+ [facility] Macrocytes detectionOrdered By: Castro Ferrara on 02-12-2025 Macrocytes Ql (Bld) 1+ [facility] Macrocytes detection 1+ [facility] Manual differential comment [place] (Bld) [Interp]Ordered By: Castro Ferrara on 02-12-2025 Blood manual differential comment interpretation (narrative result) @SLIDESCANNED [facility] Mean corpuscular hemoglobin (MCH) determinationOrdered By: Kaveh Hadley on 02-12-2025 MCH (RBC) [Entitic mass] 34.6 pg High 27.0-32.0 [facility] Mean corpuscular hemoglobin (MCH) determination 34.6 pg High 27.0-32.0 [facility] Mean corpuscular hemoglobin (MCH) determinationOrdered By: Castro Ferrara on 02-12-2025 MCH (RBC) [Entitic mass] 34.1 pg High 27.0-32.0 [facility] Mean corpuscular hemoglobin (MCH) determination 34.1 pg High 27.0-32.0 [facility] Mean corpuscular hemoglobin concentration (MCHC) determinationOrdered By: Kaveh Hadley on 02-12-2025 Mean corpuscular hemoglobin concentration (MCHC) determination 32.4 g/dL 32-36 [facility] Mean corpuscular hemoglobin concentration (MCHC) determinationOrdered By: Castro Ferrara on 02-12-2025 Mean corpuscular hemoglobin concentration (MCHC) determination 31.5 g/dL Low 32-36 [facility] Mean platelet volume determi nationOrdered By: Kaveh Hadley on 02-12-2025 Mean platelet volume determination 10.4 fl 6.2-12.0 [facility] Mean platelet volume determi nationOrdered By: Castro Ferrara on 02-12-2025 Mean platelet volume determination 10.5 fl 6.2-12.0 [facility] Monocyte percentageOrdered B y: Kaveh Hadley on 02-12-2025 Monocytes/100 WBC (Bld) 9.3 % 0-10 [facility] Monocyte percentage 9.3 % 0-10 [facility] Monocyte percentageOrdered B y: Castro Ferrara on 02-12-2025 Monocytes/100 WBC (Bld) 8.7 % 0-10 [facility] Monocyte percentage 8.7 % 0-10 [facility] Neutrophil percentageOrdered By: Kaveh Hadley on 02-12-2025 Neutrophils/100 WBC (Bld) 74.5 % High 47-70 [facility] Neutrophil percentage 74.5 % High 47-70 [facility] Neutrophil percentageOrdered By: Castro Ferrara on 02-12-2025 Neutrophils/100 WBC (Bld) 72.4 % High 47-70 [facility] Neutrophil percentage 72.4 % High 47-70 [facility] No Panel InformationOrdered By: Kaveh Hadley on 02-12-2025 72 U/L High <38 [facility] No Panel InformationOrdered By: Castro Ferrara on 02-12-2025 [address] pg/mL High <1800 [facility] Nucleated red blood cell per centageOrdered By: Kaveh Hadley on 02-12-2025 Nucleated red blood cell percentage 0.3 % 0-5 [facility] Nucleated red blood cell per centageOrdered By: Castro Ferrara on 02-12-2025 Nucleated red blood cell percentage 0 % 0-5 [facility] Ovalocyte detectionOrdered B y: Kaveh Hadley on 02-12-2025 Ovalocytes LM Ql (Bld) RARE [facility] Ovalocyte detectionOrdered B y: Castro Ferrara on 02-12-2025 Ovalocytes LM Ql (Bld) 1+ [facility] Platelet countOrdered By: Rommel Hadley on 02-12-2025 Platelets (Bld) [#/Vol] 151 10*3/uL 150-450 [facility] Platelet count 151 K/mm3 150-450 [facility] Platelet countOrdered By: Shailesh Ferrara on 02-12-2025 Platelets (Bld) [#/Vol] 146 10*3/uL Low 150-450 [facility] Platelet count 146 K/mm3 Low 150-450 [facility] Platelet estimateOrdered By: Kaveh Hadley on 02-12-2025 Platelets LM Ql (Bld) ADEQUATE ADEQ [facility] Platelet estimateOrdered By: Castro Ferrara on 02-12-2025 Platelets LM Ql (Bld) ADEQUATE ADEQ [facility] Platelets LM Ql (Bld)Ordered By: Kaveh Hadley on 02-12-2025 Platelet estimate ADEQUATE ADEQ [facility] Platelets LM Ql (Bld)Ordered By: Castro Ferrara on 02-12-2025 [facility] Potassium (Unsp spec) [Mass/ Vol]Ordered By: Kaveh Hadley on 02-12-2025 Potassium measurement (mass/volume) 3.8 mmol/L 3.3-5.1 [facility] Potassium (Unsp spec) [Mass/ Vol]Ordered By: Castro Ferrara on 02-12-2025 Potassium measurement (mass/volume) 3.3 mmol/L 3.3-5.1 [facility] Potassium measurement (mass/ volume)Ordered By: Kaveh Hadley on 02-12-2025 Potassium (Unsp spec) [Mass/Vol] 3.8 mmol/L 3.3-5.1 [facility] Potassium measurement (mass/ volume)Ordered By: Castro Ferrara on 02-12-2025 Potassium (Unsp spec) [Mass/Vol] 3.3 mmol/L 3.3-5.1 [facility] Prothrombin timeOrdered By: Kaveh Hadley on 02-12-2025 PT Coag (PPP) [Time] 17.9 s High 11.7-14.9 [facility] Prothrombin time 17.9 SECONDS High 11.7-14.9 [facility] RBC Auto (Bld) [#/Vol]Ordere d By: Kaveh Hadley on 02-12-2025 RBC (Bld) [#/Vol] 2.34 10*6/uL Low 4.6-6.2 [facility] Automated blood erythrocyte count 2.34 M/mm3 Low 4.6-6.2 [facility] RBC Auto (Bld) [#/Vol]Ordere d By: Castro Ferrara on 02-12-2025 RBC (Bld) [#/Vol] 2.29 10*6/uL Low 4.6-6.2 [facility] Automated blood erythrocyte count 2.29 M/mm3 Low 4.6-6.2 [facility] RBC morphology finding Nom ( Bld)Ordered By: Kaveh Hadley on 02-12-2025 Erythrocyte morphology assessment N CHROM NORMAL NORM C&C [facility] RBC morphology finding Nom ( Bld)Ordered By: Castro Ferrara on 02-12-2025 Erythrocyte morphology assessment N CHROM NORMAL NORM C&C [facility] Serum creatinine measurement (mass/volume)Ordered By: Kaveh Hadley on 02-12-2025 Creatinine [Mass/Vol] 6.24 mg/dL High 0.70-1.20 [facility] Serum creatinine measurement (mass/volume)Ordered By: Castro Ferrara on 02-12-2025 Creatinine [Mass/Vol] 5.84 mg/dL High 0.70-1.20 [facility] Serum globulin measurementOr dered By: Kaveh Hadley on 02-12-2025 Globulin (S) [Mass/Vol] 3.5 g/dL 2.2-4.2 [facility] Serum globulin measurement 3.5 g/dL 2.2-4.2 [facility] Serum glucose measurement (m ass/volume)Ordered By: Kaveh Hadley on 02-12-2025 Glucose [Mass/Vol] 97 mg/dL 70-99 [facility] Serum glucose measurement (m ass/volume)Ordered By: Castro Ferrara on 02-12-2025 Glucose [Mass/Vol] 91 mg/dL 70-99 [facility] Serum or plasma alanine lorenzana otransferase (ALT) measurementOrdered By: Kaveh Hadley on 02-12-2025 ALT [Catalytic activity/Vol] 25 U/L <47 [facility] Serum or plasma albumin khalif urement (mass/volume)Ordered By: Kaveh Hadley on 02-12-2025 Albumin [Mass/Vol] 3.4 g/dL 3.4-4.8 [facility] Serum or plasma albumin/glob ulin mass ratioOrdered By: Kaveh Hadley on 02-12-2025 Albumin/Globulin [Mass ratio] 1.0 {ratio} 0.9-2.4 [facility] Serum or plasma alkaline guille sphatase measurementOrdered By: Kaveh Hadley on 02-12-2025 ALP [Catalytic activity/Vol] 361 U/L High 40-129 [facility] Serum or plasma calcium khalif urement (mass/volume)Ordered By: Kaveh Hadley on 02-12-2025 Calcium [Mass/Vol] 8.1 mg/dL 7.6-11.0 [facility] Serum or plasma calcium khalif urement (mass/volume)Ordered By: Castro Ferrara on 02-12-2025 Calcium [Mass/Vol] 8.3 mg/dL 7.6-11.0 [facility] Serum or plasma urea nitroge n measurement (mass/volume)Ordered By: Kaveh Hadley on 02-12-2025 Urea nitrogen [Mass/Vol] 28 mg/dL High 4-19 [facility] Serum or plasma urea nitroge n measurement (mass/volume)Ordered By: Castro Ferrara on 02-12-2025 Urea nitrogen [Mass/Vol] 25 mg/dL High 4-19 [facility] Sodium levelOrdered By: Kody Hadley on 02-12-2025 Sodium [Moles/Vol] 139 mmol/L 133-145 [facility] Sodium level 139 mmol/L 133-145 [facility] Sodium levelOrdered By: Castro Ferrara on 02-12-2025 Sodium [Moles/Vol] 137 mmol/L 133-145 [facility] Sodium level 137 mmol/L 133-145 [facility] Stool gastrointestinal hemog lobin detection by immunologic methodOrdered By: Kaveh Hadley on 02-12-2025 Lower GI hemoglobin IA Ql (Stl) Positive Abnormal [facility] Total proteinOrdered By: Michelet Hadley on 02-12-2025 Protein [Mass/Vol] 6.9 g/dL 5.9-8.4 [facility] Total protein 6.9 g/dL 5.9-8.4 [facility] Urea nitrogen [Mass/Vol]Orde red By: Kaveh Hadley on 02-12-2025 Serum or plasma urea nitrogen measurement (mass/volume) 28 mg/dL High 03-07 [facility] Urea nitrogen [Mass/Vol]Orde red By: Castro Ferrara on 02-12-2025 Serum or plasma urea nitrogen measurement (mass/volume) 25 mg/dL High 03-07 [facility] Venous blood ammonia measure mentOrdered By: Castro Ferrara on 02-12-2025 Ammonia (P) [Moles/Vol] 27.3 umol/L 16- [facility] Venous blood ammonia measurement 27.3 umol/L - [facility] White blood cell (WBC) count Ordered By: Kaveh Hadley on 02-12-2025 WBC (Bld) [#/Vol] 7.9 10*3/uL 4.4-11.0 [facility] White blood cell (WBC) count 7.9 K/mm3 4.4-11.0 [facility] White blood cell (WBC) count Ordered By: Castro Ferrara on 02-12-2025 WBC (Bld) [#/Vol] 7.8 10*3/uL 4.4-11.0 [facility] White blood cell (WBC) count 7.8 K/mm3 4.4-11.0 [facility] aPTT Coag (PPP) [Time]Ordere d By: Kaveh Hadley on 02-12-2025 Activated partial thromboplastin time (aPTT) in platelet poor plasma by coagulation a 66.1 Seconds High 24.1-36.2 [facility] No Panel InformationOrdered By: Jane Torres on 02-11-2025 2.7 [facility] No Panel InformationOrdered By: Jane Torres on 02-09-2025 1.9 [facility] No Panel InformationOrdered By: Jane Torres on 02-02-2025 4.1 [facility] No Panel InformationOrdered By: Jane Torres on 01-26-2025 3.9 [facility] Hematocrit Auto (Bld) [Volum e fraction]Ordered By: Bruce Calderon on 01-22-2025 Hematocrit (Bld) [Volume fraction] 31.3 % [facility] 4054 [facility] Automated blood hematocrit (percentage) 31.3 % [facility] 4054 [facility] Hemoglobin measurementOrdere d By: Bruce Calderon on 01-22-2025 Hemoglobin (Bld) [Mass/Vol] 10.1 g/dL Low 13.0-16.5 [facility] Hemoglobin measurement 10.1 g/dL Low 13.0-16.5 [facility] No Panel Informationon 01-19 3.6 [facility] No Panel Informationon 01-05 3.9 [facility] No Panel InformationOrdered By: Jane Torres on 01-02-2025 3.2 [facility] No Panel Informationon 12-29 2.3 [facility] No Panel InformationOrdered By: Esa Mckeon on 12-24-2024 1.9 [facility] No Panel InformationOrdered By: Jane Torres on 12-22-2024 1.9 [facility] CASE REQUEST DEPARTMENT USE ONLY INTERVENTIONAL RADIOLOGY: REPAIR CENTRAL VENOUS ACCESS DEVICE CATHETER W/O PORT PUMPon 12-19-2024 ROSE Liriano 12/19/2024 10:51 AM CASE REQUEST DEPARTMENT USE ONLY INTERVENTIONAL RADIOLOGY: REPAIR CENTRAL VENOUS ACCESS DEVICE CATHETER W/O PORT PUMP Procedure Date: 12/19/2024 Performed by: ROSE Liriano Authorized by: PATRICIA Nina DIAGNOSIS End stage renal disease Indications Indications: broken port Pearce Protocol Verbal consent obtained Risks and benefits were discussed. Consent given by: patient Patient identity confirmed: verbally with patient time out called Checklist was followed: Yes Procedure Details Hand hygiene used Landmarks identified Skin prep agent completely dried prior to procedure Maximum sterile barriers were used: cap, mask, sterile gown, sterile gloves, and large sterile sheet Location: right IJ THIA Patient position: Supine Anesthesia: Local anesthesia used: [...] capped. There were no complications. ROSE Liriano [facility] Radiology [facility] observation [facility]narrative) [facility] CBC,PLATELETSon 12-19-2024 Erythrocyte distribution width (RBC) [Ratio] 17.7 % High 10.9 - 14.3 % [facility] Hematocrit (Bld) [Volume fraction] 35.8 % Low 39.6 - 48.8 % [facility] Hemoglobin (Bld) [Mass/Vol] 11.3 g/dL Low 13.4 - 16.8 g/dL [facility] Interpretation and review of laboratory results Abnormal [facility] MCH (RBC) [Entitic mass] 33.5 pg High 26.1 - 33.3 pg [facility] MCHC (RBC) [Mass/Vol] 31.6 g/dL Low 31.9 - 36.5 g/dL [facility] MCV (RBC) [Entitic vol] 106.2 fL High 79.0 - 94.5 fL [facility] Platelet mean volume (Bld) [Entitic vol] 10.3 fL 8.7 - 12.3 fL [facility] Platelets (Bld) [#/Vol] 201 10*3/uL 146 - 337 K/uL [facility] RBC (Bld) [#/Vol] 3.37 10*6/uL Low [facility] WBC (Bld) [#/Vol] 9.85 10*3/uL 3.73 - 10. 10 K/uL [facility] Hematocrit (Bld) [Volume fraction] 35.8 % Low 39.6-48.8 [facility] Comment on above: Performed By: #### X M #### [facility] (DEFAULT) [address] [place] [address]652 Hemoglobin (Bld) [Mass/Vol] 11.3 g/dL Low 13.4-16.8 [facility] Comment on above: Performed By: #### X M #### [facility] (DEFAULT) [address] [place] [address] 11227 MCV (RBC) [Entitic vol] 106.2 fL High 79.0-94.5 [facility] Comment on above: Performed By: #### X M #### [facility] (DEFAULT) [address] [place] [address] 87135 Mean Cell Hgb 33.5 pg High 26.1-33.3 [facility] Comment on above: Performed By: #### X M #### [facility] (DEFAULT) [address] [place] [address] 74681 Mean Cell Hgb Conc 31.6 g/dL Low 31.9-36.5 [facility] Comment on above: Performed By: #### X M #### [facility] (DEFAULT) [address] [place] [address] 57877 Platelet mean volume (Bld) [Entitic vol] 10.3 fL Normal 8.7-12.3 [facility] Comment on above: Performed By: #### X M #### [facility] (DEFAULT) [address] [place] [address] 57590 Platelets (Bld) [#/Vol] 201 10*3/uL Normal 146-337 [facility] Comment on above: Performed By: #### X M #### [facility] (DEFAULT) [address] [place] [address] 92179 RBC (Bld) [#/Vol] 3.37 10*6/uL Low 4.38-5.83 [facility] Comment on above: Performed By: #### X M #### [facility] (DEFAULT) [address] [place] [address] 43931 RBC Distribution 17.7 % High 10.9-14.3 [facility] Comment on above: Performed By: #### X M #### [facility] (DEFAULT) [address] [place] [address] 33248 WBC (Bld) [#/Vol] 9.85 10*3/uL Normal 3.73-10.10 [facility] Comment on above: Performed By: #### X M #### [facility] (DEFAULT) [address] [place] [address] 66039 CHEM 7 (LYTES,BUN,CREA,GLUC) on 12-19-2024 Anion gap [Moles/Vol] 21 mmol/L High 7 - 17 mmol/L [facility] Chloride [Moles/Vol] 94 mmol/L Low 98 - 10 8 mmol/L [facility] CO2 [Moles/Vol] 25 mmol/L 21 - 31 mmol/L [facility] Creatinine [Mass/Vol] 9.09 mg/dL High 0.70 - 1.30 mg/dL [facility] eGFR, CKD-EPI, Male 6 Low - PINF [facility] Comment on above: Reported eGFR is bas ed on the CKD-EPI 2020 equation using creatinine, age, and sex. Glucose [Mass/Vol] 83 mg/dL 70 - 99 mg/dL [facility] Interpretation and review of laboratory results Abnormal [facility] Osmolality Calc [Osmolality] 299 [facility] Potassium [Moles/Vol] 4.5 mmol/L 3.5 - 5.0 mmol/L [facility] Sodium [Moles/Vol] 135 mmol/L 135 - 145 mmol/L [facility] Urea nitrogen [Mass/Vol] 58 mg/dL High 7 - 25 mg/dL [facility] Urea nitrogen/Creatinine [Mass ratio] 6 mg/mg [facility] Anion gap [Moles/Vol] 21 mmol/L High 7-17 [facility] Comment on above: Performed By: #### X M #### [facility] (DEFAULT) [address] [place] [address] 34726 Chloride [Moles/Vol] 94 mmol/L Low 98-108 [facility] Comment on above: Performed By: #### X M #### [facility] (DEFAULT) [address] [place] [address] 22441 CO2 [Moles/Vol] 25 mmol/L Normal 21-31 [facility] Comment on above: Performed By: #### X M #### [facility] (DEFAULT) [address] [place] [address] 59490 Creatinine [Mass/Vol] 9.09 mg/dL High 0.70-1.30 [facility] Comment on above: Performed By: #### X M #### [facility] (DEFAULT) [address] [place] [address] 50941 GFR/1.73 sq M.predicted among non-blacks MDRD (S/P/Bld) [Vol rate/Area] 6 mL/min/{1.73_m2} Low >=60 [facility] Comment on above: Result Comment: Repo rted eGFR is based on the CKD-EPI 2020 equation using creatinine, age, and sex. Performed By: #### X M #### [facility] (DEFAULT) [address] [place] [address] 89128 Glucose [Mass/Vol] 83 mg/dL Normal 70-99 [facility] Comment on above: Performed By: #### X M #### [facility] (DEFAULT) [address] [place] [address] Osmolality [Osmolality] 299 mosm/kg Normal 278-305 [facility] Comment on above: Performed By: #### X M #### [facility] (DEFAULT) [address] [place] [address] Potassium [Moles/Vol] 4.5 mmol/L Normal 3.5-5.0 [facility] Comment on above: Performed By: #### X M #### [facility] (DEFAULT) [address] [place] [address] Sodium [Moles/Vol] 135 mmol/L Normal 135-145 [facility] Comment on above: Performed By: #### X M #### [facility] (DEFAULT) [address] [place] [address] 57313 Urea nitrogen [Mass/Vol] 58 mg/dL High 7-25 [facility] Comment on above: Performed By: #### X M #### [facility] (DEFAULT) [address] [place] [address] 34706 Urea nitrogen/Creatinine [Mass ratio] 6 mg/mg Normal [facility] Comment on above: Performed By: #### X M #### [facility] (DEFAULT) [address] [place] [address] 96859 No Panel Informationon 12-19 2.0 [facility] PT,INR,PTTon 12-19-2024 aPTT Coag (PPP) [Time] 80.4 s High [facility] INR Coag (Bld) [Relative time] 2.0 {INR} High 0.9 - 1.1 [facility] Interpretation and review of laboratory results Abnormal [facility] PT Coag (PPP) [Time] 22.3 s High [facility] aPTT Coag (Bld) [Time] 80.4 s High 24.0-34.3 [facility] Comment on above: Performed By: #### X M #### [facility] (DEFAULT) [address] [place] [address] INR Coag (PPP) [Relative time] 2.0 {INR} High 0.9-1.1 [facility] Comment on above: Performed By: #### X M #### [facility] (DEFAULT) [address] [place] [address] PT Coag (PPP) [Time] 22.3 s High 11.9-14.2 [facility] Comment on above: Performed By: #### X M #### [facility] (DEFAULT) [address] [place] [address] CBC,PLATELETSon 12-18-2024 Erythrocyte distribution width (RBC) [Ratio] 17.8 % High 10.9 - 14.3 % [facility] Hematocrit (Bld) [Volume fraction] 33.8 % Low 39.6 - 48.8 % [facility] Hemoglobin (Bld) [Mass/Vol] 11.0 g/dL Low 13.4 - 16.8 g/dL [facility] Interpretation and review of laboratory results Abnormal [facility] MCH (RBC) [Entitic mass] 34.4 pg High 26.1 - 33.3 pg [facility] MCHC (RBC) [Mass/Vol] 32.5 g/dL 31.9 - 36.5 g/dL [facility] MCV (RBC) [Entitic vol] 105.6 fL High 79.0 - 94.5 fL [facility] Platelet mean volume (Bld) [Entitic vol] 9.9 fL 8.7 - 12.3 fL [facility] Platelets (Bld) [#/Vol] 198 10*3/uL 146 - 337 K/uL [facility] RBC (Bld) [#/Vol] 3.20 10*6/uL Low [facility] WBC (Bld) [#/Vol] 9.74 10*3/uL 3.73 - 10. 10 K/uL [facility] Hematocrit (Bld) [Volume fraction] 33.8 % Low 39.6-48.8 [facility] Comment on above: Performed By: #### X M #### [facility] (DEFAULT) [address] [address] Hemoglobin (Bld) [Mass/Vol] 11.0 g/dL Low 13.4-16.8 [facility] Comment on above: Performed By: #### X M #### [facility] (DEFAULT) [address] [place] [address] 45077 MCV (RBC) [Entitic vol] 105.6 fL High 79.0-94.5 [facility] Comment on above: Performed By: #### X M #### [facility] (DEFAULT) [address] [address] Mean Cell Hgb 34.4 pg High 26.1-33.3 [facility] Comment on above: Performed By: #### X M #### [facility] (DEFAULT) [address] [place] [address] 94388 Mean Cell Hgb Conc 32.5 g/dL Normal 31.9-36.5 [facility] Comment on above: Performed By: #### X M #### [facility] (DEFAULT) [address] [place] [address] 53668 Platelet mean volume (Bld) [Entitic vol] 9.9 fL Normal 8.7-12.3 [facility] Comment on above: Performed By: #### X M #### [facility] (DEFAULT) [address] [place] [address] 65245 Platelets (Bld) [#/Vol] 198 10*3/uL Normal 146-337 [facility] Comment on above: Performed By: #### X M #### [facility] (DEFAULT) [address] [place] [address] 77549 RBC (Bld) [#/Vol] 3.20 10*6/uL Low 4.38-5.83 [facility] Comment on above: Performed By: #### X M #### [facility] (DEFAULT) [address] [place] [address] RBC Distribution 17.8 % High 10.9-14.3 [facility] Comment on above: Performed By: #### X M #### [facility] (DEFAULT) [address] [place] [address] WBC (Bld) [#/Vol] 9.74 10*3/uL Normal 3.73-10.10 [facility] Comment on above: Performed By: #### X M #### [facility] (DEFAULT) [address] [place] [address] CHEM 7 (LYTES,BUN,CREA,GLUC) on 12-18-2024 Anion gap [Moles/Vol] 17 mmol/L 7 - 17 mmol/L [facility] Chloride [Moles/Vol] 93 mmol/L Low 98 - 10 8 mmol/L [facility] CO2 [Moles/Vol] 28 mmol/L 21 - 31 mmol/L [facility] Creatinine [Mass/Vol] 8.06 mg/dL High 0.70 - 1.30 mg/dL [facility] eGFR, CKD-EPI, Male 6 Low - PINF [facility] Comment on above: Reported eGFR is bas ed on the CKD-EPI 2020 equation using creatinine, age, and sex. Glucose [Mass/Vol] 89 mg/dL 70 - 99 mg/dL [facility] Osmolality Calc [Osmolality] 294 [facility] Potassium [Moles/Vol] 5.2 mmol/L High 3.5 - 5.0 mmol/L [facility] Comment on above: Specimen slightly he molyzed. Potassium results may be falsey elevated by more than 0.5 mmol/L. Consider recollection. Sodium [Moles/Vol] 133 mmol/L Low 135 - 145 mmol/L [facility] Urea nitrogen [Mass/Vol] 48 mg/dL High 7 - 25 mg/dL [facility] Urea nitrogen/Creatinine [Mass ratio] 6 mg/mg [facility] Anion gap [Moles/Vol] 17 mmol/L Normal 7-17 [facility] Comment on above: Performed By: #### X M #### [facility] (DEFAULT) [address] [place] [address] 03490 Chloride [Moles/Vol] 93 mmol/L Low 98-108 [facility] Comment on above: Performed By: #### X M #### [facility] (DEFAULT) [address] [place] [address] 39389 CO2 [Moles/Vol] 28 mmol/L Normal 21-31 [facility] Comment on above: Performed By: #### X M #### [facility] (DEFAULT) [address] [place] [address] 39225 Creatinine [Mass/Vol] 8.06 mg/dL High 0.70-1.30 [facility] Comment on above: Performed By: #### X M #### [facility] (DEFAULT) [address] [place] [address] 10756 GFR/1.73 sq M.predicted among non-blacks MDRD (S/P/Bld) [Vol rate/Area] 6 mL/min/{1.73_m2} Low >=60 [facility] Comment on above: Result Comment: Repo rted eGFR is based on the CKD-EPI 2020 equation using creatinine, age, and sex. Performed By: #### X M #### [facility] (DEFAULT) [address] [place] [address] 10151 Glucose [Mass/Vol] 89 mg/dL Normal 70-99 [facility] Comment on above: Performed By: #### X M #### [facility] (DEFAULT) [address] [place] [address] 660[address] Osmolality [Osmolality] 294 mosm/kg Normal 278-305 [facility] Comment on above: Performed By: #### X M #### [facility] (DEFAULT) [address] [place] [address] 25675 Potassium [Moles/Vol] 5.2 mmol/L High 3.5-5.0 [facility] Comment on above: Result Comment: Spec imen slightly hemolyzed. Potassium results may be falsey elevated by more than 0.5 mmol/L. Consider recollection. Performed By: #### X M #### [facility] (DEFAULT) [address] [place] [address] Sodium [Moles/Vol] 133 mmol/L Low 135-145 [facility] Comment on above: Performed By: #### X M #### [facility] (DEFAULT) [address] [place] [address] Urea nitrogen [Mass/Vol] 48 mg/dL High 7-25 [facility] Comment on above: Performed By: #### X M #### [facility] (DEFAULT) [address] [place] [address] Urea nitrogen/Creatinine [Mass ratio] 6 mg/mg Normal [facility] Comment on above: Performed By: #### X M #### [facility] (DEFAULT) [address] [place] [address] 39873 HEPATIC FUNCTION PANELon Albumin [Mass/Vol] 4.2 g/dL 3.5 - 5.0 g/dL [facility] ALP [Catalytic activity/Vol] 375 U/L High 32 - 126 U/L [facility] ALT [Catalytic activity/Vol] 37 U/L 10 - 52 U/L [facility] AST [Catalytic activity/Vol] 48 U/L High 10 - 39 U/L [facility] Comment on above: Specimen slightly he molyzed. AST results may be falsely elevated. Interpret within the clinical context. Bilirubin [Mass/Vol] 1.1 mg/dL NINF - 1.5 mg/dL [facility] Bilirubin.direct [Mass/Vol] 0.2 mg/dL [facility] 0.[facility] mg/dL [facility] Comment on above: Specimen hemolyzed. Direct bilirubin results may be falsely decreased. Interpret within the clinical context. Protein [Mass/Vol] 8.6 g/dL High 6.4 - 8.3 g/dL [facility] Albumin [Mass/Vol] 4.2 g/dL Normal 3.5-5.0 [facility] Comment on above: Performed By: #### X M #### [facility] (DEFAULT) [address] [place] [address]407 ALP [Catalytic activity/Vol] 375 U/L High 32-126 [facility] Comment on above: Performed By: #### X M #### [facility] (DEFAULT) [address] [place] [address] 32799 ALT [Catalytic activity/Vol] 37 U/L Normal 10-52 [facility] Comment on above: Performed By: #### X M #### [facility] (DEFAULT) [address] [place] [address] 40700 AST [Catalytic activity/Vol] 48 U/L High 10-39 [facility] Comment on above: Result Comment: Spec imen slightly hemolyzed. AST results may be falsely elevated. Interpret within the clinical context. Performed By: #### X M #### [facility] (DEFAULT) [address] [place] [address] 16643 Bilirubin [Mass/Vol] 1.1 mg/dL Normal <1.5 [facility] Comment on above: Performed By: #### X M #### [facility] (DEFAULT) [address] [place] [address] 04335 Bilirubin.indirect [Mass/Vol] 0.2 mg/dL Normal <0.3 [facility] Comment on above: Result Comment: Spec imen hemolyzed. Direct bilirubin results may be falsely decreased. Interpret within the clinical context. Performed By: #### X M #### [facility] (DEFAULT) [address] [place] [address] 67979 Protein [Mass/Vol] 8.6 g/dL High 6.4-8.3 [facility] Comment on above: Performed By: #### X M #### [facility] (DEFAULT) [address] [place] [address] 37345 No Panel Informationon 12-18 Interpretation and review of laboratory results Abnormal [facility] PT,INR,PTTon 12-18-2024 aPTT Coag (PPP) [Time] 75.2 s High [facility] INR Coag (Bld) [Relative time] 1.9 {INR} High 0.9 - 1.1 [facility] Interpretation and review of laboratory results Abnormal [facility] PT Coag (PPP) [Time] 21.8 s High [facility] aPTT Coag (Bld) [Time] 75.2 s High 24.0-34.3 [facility] Comment on above: Performed By: #### X M #### [facility] (DEFAULT) [address] [place] [address] 78189 INR Coag (PPP) [Relative time] 1.9 {INR} High 0.9-1.1 [facility] Comment on above: Performed By: #### X M #### [facility] (DEFAULT) [address] [place] [address] 08170 PT Coag (PPP) [Time] 21.8 s High 11.9-14.2 [facility] Comment on above: Performed By: #### X M #### [facility] (DEFAULT) [address] [place] [address] 99304 Absolute lymphocyte countOrd ered By: Marquis Gomes on 12-17-2024 Lymphocytes Auto (Unsp spec) [#/Vol] 1.79 10*3/uL 0.83-4.51 [facility] Absolute neutrophil countOrd ered By: Marquis Gomes on 12-17-2024 Absolute neutrophil count 5.8 X10^3/uL 2.0-7.7 [facility] Automated lymphocyte count a s percentage of total leukocytesOrdered By: Marquis Gomes on 12-17-2024 Lymphocytes/100 WBC Auto (Unsp spec) 19.3 % 19-41 [facility] Basophil percentageOrdered B y: Marquis Gomes on 12-17-2024 Basophils/100 WBC (Bld) 0.8 % 0-1 [facility] Basophil percentage 0.8 % 0-1 [facility] Blood manual differential co mment interpretation (narrative result)Ordered By: Marquis Gomes on 12-17-2024 Manual differential comment [place] (Bld) [Interp] SCANNED [facility] Blood urea nitrogen (BUN)/cr eatinine ratioOrdered By: Marquis Gomes on 12-17-2024 Blood urea nitrogen (BUN)/creatinine ratio 6.3 RATIO Low 10-20 [facility] Calcium [Mass/Vol]Ordered By : Marquis Gomes on 12-17-2024 Serum or plasma calcium measurement (mass/volume) 8.6 mg/dL 8.5-10.1 [facility] [place] dioxide measurementOr dered By: Marquis Gomes on 12-17-2024 CO2 [Moles/Vol] 24.0 mmol/L 21.0-32.0 [facility] Carbon dioxide measurement 24.0 mmol/L 21.0-32.0 [facility] Chloride measurementOrdered By: Marquis Gomes on 12-17-2024 Chloride [Moles/Vol] 94 mmol/L Low 98-107 [facility] Chloride measurement 94 mmol/L Low 98-107 [facility] Creatinine [Mass/Vol]Ordered By: Marquis Gomes on 12-17-2024 Serum or plasma creatinine measurement (mass/volume) 6.65 mg/dL High 0.70-1.30 [facility] Eosinophil percentageOrdered By: Marquis Gomes on 12-17-2024 Eosinophils/100 WBC (Bld) 5.3 % High 0-5 [facility] Eosinophil percentage 5.3 % High 0-5 [facility] Erythrocyte distribution wid th (RBC) [Entitic vol]Ordered By: Marquis Goems on 12-17-2024 Erythrocyte distribution width standard deviation 69.6 fl High 35.1-43.9 [facility] Erythrocyte distribution wid th (RBC) [Ratio]Ordered By: Marquis Gomes on 12-17-2024 Erythrocyte distribution width ratio 17.7 % High 11.6-14.6 [facility] Erythrocyte distribution wid th ratioOrdered By: Marquis Gomes on 12-17-2024 Erythrocyte distribution width (RBC) [Ratio] 17.7 % High 11.6-14.6 [facility] Erythrocyte distribution wid th standard deviationOrdered By: Marquis Gomes on 12-17-2024 Erythrocyte distribution width (RBC) [Ratio] 69.6 fl High 35.1-43.9 [facility] Estimated glomerular filtrat ion rate (GFR) AmericanOrdered By: Marquis Gomes on 12-17-2024 Estimated glomerular filtration rate (GFR) 11 mL/min Low >60 [facility] Estimation of creatinine omkar aranceOrdered By: Marquis Gomes on 12-17-2024 Estimation of creatinine clearance 8.97 ml/min [facility] Glomerular filtration rate ( GFR) estimationOrdered By: Marquis Gomes on 12-17-2024 GFR/1.73 sq M.predicted among non-blacks MDRD (S/P/Bld) [Vol rate/Area] 9 mL/min/{1.73_m2} Low >60 [facility] Glomerular filtration rate (GFR) estimation 9 mL/min Low >60 [facility] Glucose measurementOrdered B y: Marquis Gomes on 12-17-2024 Glucose [Mass/Vol] 86 mg/dL 74-106 [facility] Glucose measurement 86 mg/dL 74-106 [facility] Hematocrit Auto (Bld) [Volum e fraction]Ordered By: Marquis Gomes on 12-17-2024 Hematocrit (Bld) [Volume fraction] 34.6 % Low 40-54 [facility] Automated blood hematocrit (percentage) 34.6 % Low 40-54 [facility] Hemoglobin measurementOrdere d By: Marquis Gomes on 12-17-2024 Hemoglobin (Bld) [Mass/Vol] 11.4 g/dL Low 13.0-16.5 [facility] Hemoglobin measurement 11.4 g/dL Low 13.0-16.5 [facility] Immature granulocytes/100 WB C Auto (Bld)Ordered By: Marquis Gomes on 12-17-2024 Immature granulocytes/100 WBC (Bld) 0.500 % 0.0-0.9 [facility] Automated immature granulocyte percentage 0.500 % 0.0-0.9 [facility] International normalized rat io (INR) calculationOrdered By: Marquis Gomes on 12-17-2024 International normalized ratio (INR) calculation 2.0 [facility] Lymphocytes Auto (Unsp spec) [#/Vol]Ordered By: Marquis Gomes on 12-17-2024 Absolute lymphocyte count 1.79 X10^3/uL 0.83-4.51 [facility] Lymphocytes/100 WBC Auto (Un sp spec)Ordered By: Marquis Gomes on 12-17-2024 Automated lymphocyte count as percentage of total leukocytes 19.3 % 19-41 [facility] MCV (RBC) [Entitic vol]Order ed By: Marquis Gomes on 12-17-2024 MCV (mean corpuscular volume) determination 105.8 fL High 80-94 [facility] MCV (mean corpuscular volume ) determinationOrdered By: Marquis Gomes on 12-17-2024 MCV (RBC) [Entitic vol] 105.8 fL High 80-94 [facility] Magnesium measurementOrdered By: Marquis Gomes on 12-17-2024 Magnesium [Mass/Vol] 2.2 mg/dL 1.6-2.6 [facility] Magnesium measurement 2.2 mg/dL 1.6-2.6 [facility] Manual differential comment [place] (Bld) [Interp]Ordered By: Marquis Gomes on 12-17-2024 Blood manual differential comment interpretation (narrative result) SCANNED [facility] Mean corpuscular hemoglobin (MCH) determinationOrdered By: Marquis Gomes on 12-17-2024 MCH (RBC) [Entitic mass] 34.9 pg High 27.0-32.0 [facility] Mean corpuscular hemoglobin (MCH) determination 34.9 pg High 27.0-32.0 [facility] Mean corpuscular hemoglobin concentration (MCHC) determinationOrdered By: Marquis Gomes on 12-17-2024 Mean corpuscular hemoglobin concentration (MCHC) determination 32.9 g/dL 32-36 [facility] Mean platelet volume determi nationOrdered By: Marquis Gomes on 12-17-2024 Mean platelet volume determination 9.7 fl 6.2-12.0 [facility] Monocyte percentageOrdered B y: Marquis Gomes on 12-17-2024 Monocytes/100 WBC (Bld) 11.0 % High 0-10 [facility] Monocyte percentage 11.0 % High 0-10 [facility] Neutrophil percentageOrdered By: Marquis Gomes on 12-17-2024 Neutrophils/100 WBC (Bld) 63.1 % 47-70 [facility] Neutrophil percentage 63.1 % 47-70 [facility] No Panel InformationOrdered By: Marquis Gomes on 12-17-2024 2+ [facility] Nucleated red blood cell per centageOrdered By: Marquis Gomes on 12-17-2024 Nucleated red blood cell percentage 0 % 0-5 [facility] Phosphorus measurementOrdere d By: Marquis Gomes on 12-17-2024 Phosphorus measurement 3.6 mg/dL 2.5-4.9 [facility] Platelet countOrdered By: Anshu Gomes on 12-17-2024 Platelets (Bld) [#/Vol] 218 10*3/uL 150-450 [facility] Platelet count 218 K/mm3 150-450 [facility] Platelet estimateOrdered By: Marquis Gomes on 12-17-2024 Platelets LM Ql (Bld) ADEQUATE ADEQ [facility] Platelets LM Ql (Bld)Ordered By: Marquis Gomes on 12-17-2024 Platelet estimate ADEQUATE [facility] Potassium measurementOrdered By: Marquis Gomes on 12-17-2024 Potassium [Moles/Vol] 5.8 mmol/L High 3.5-5.1 [facility] Potassium measurement 5.8 mmol/L High 3.5-5.1 [facility] Prothrombin timeOrdered By: Marquis Gomes on 12-17-2024 PT Coag (PPP) [Time] 22.8 s High 11.7-14.9 [facility] Prothrombin time 22.8 SECONDS High 11.7-14.9 [facility] RBC Auto (Bld) [#/Vol]Ordere d By: Marquis Gomes on 12-17-2024 RBC (Bld) [#/Vol] 3.27 10*6/uL Low 4.6-6.2 [facility] Automated blood erythrocyte count 3.27 M/mm3 Low 4.6-6.2 [facility] Serum anion gap measurementO rdered By: Marquis Gomes on 12-17-2024 Serum anion gap measurement 11 5-15 [facility] Serum or plasma calcium khlaif urement (mass/volume)Ordered By: Marquis Gomes on 12-17-2024 Calcium [Mass/Vol] 8.6 mg/dL 8.5-10.1 [facility] Serum or plasma creatinine m easurement (mass/volume)Ordered By: Marquis Gomes on 12-17-2024 Creatinine [Mass/Vol] 6.65 mg/dL High 0.70-1.30 [facility] Serum or plasma urea nitroge n measurement (mass/volume)Ordered By: Marquis Gomes on 12-17-2024 Urea nitrogen [Mass/Vol] 42 mg/dL High 7-18 [facility] Sodium levelOrdered By: Sourav Gomes on 12-17-2024 Sodium [Moles/Vol] 129 mmol/L Low 136-145 [facility] Sodium level 129 mmol/L Low 136-145 [facility] Urea nitrogen [Mass/Vol]Orde red By: Marquis Gomes on 12-17-2024 Serum or plasma urea nitrogen measurement (mass/volume) 42 mg/dL High 7-18 [facility] White blood cell (WBC) count Ordered By: Marquis Gomes on 12-17-2024 WBC (Bld) [#/Vol] 9.3 10*3/uL 4.4-11.0 [facility] White blood cell (WBC) count 9.3 K/mm3 4.4-11.0 [facility] ALP [Catalytic activity/Vol] Ordered By: Diego Reaves on 12-16-2024 Serum or plasma alkaline phosphatase measurement 449 U/L High 45-117 [facility] ALT [Catalytic activity/Vol] Ordered By: Diego Reaves on 12-16-2024 Serum or plasma alanine aminotransferase (ALT) measurement 66 U/L High 16-61 [facility] Absolute lymphocyte countOrd ered By: Diego Reaves on 12-16-2024 Lymphocytes Auto (Unsp spec) [#/Vol] 1.65 10*3/uL 0.83-4.51 [facility] Absolute neutrophil countOrd ered By: Diego Reaves on 12-16-2024 Absolute neutrophil count 5.4 X10^3/uL 2.0-7.7 [facility] Activated partial thrombopla stin time (aPTT) in platelet poor plasma by coagulation aOrdered By: Diego Reaves on 12-16-2024 aPTT Coag (PPP) [Time] 88.1 s High 24.1-36.2 [facility] Albumin [Mass/Vol]Ordered By : Diego Reaves on 12-16-2024 Serum or plasma albumin measurement (mass/volume) 3.5 g/dL 3.2-5.0 [facility] Automated lymphocyte count a s percentage of total leukocytesOrdered By: Diego Reaves on 12-16-2024 Lymphocytes/100 WBC Auto (Unsp spec) 19.7 % 19-41 [facility] Basophil percentageOrdered B y: Diego Reaves on 12-16-2024 Basophils/100 WBC (Bld) 1.1 % High 0-1 [facility] Basophil percentage 1.1 % High 0-1 [facility] Bilirubin directOrdered By: Diego Reaves on 12-16-2024 Bilirubin.direct [Mass/Vol] 0.44 mg/dL High 0.00-0.30 [facility] Bilirubin, totalOrdered By: Diego Reaves on 12-16-2024 Bilirubin [Mass/Vol] 0.80 mg/dL 0.20-1.00 [facility] Bilirubin, total 0.80 mg/dL 0.20-1.00 [facility] Bilirubin.direct [Mass/Vol]O rdered By: Diego Reaves on 12-16-2024 Bilirubin direct 0.44 mg/dL High 0.00-0.30 [facility] Blood urea nitrogen (BUN)/cr eatinine ratioOrdered By: Diego Reaves on 12-16-2024 Blood urea nitrogen (BUN)/creatinine ratio 6.7 RATIO Low 10-20 [facility] Calcium [Mass/Vol]Ordered By : Diego Reaves on 12-16-2024 Serum or plasma calcium measurement (mass/volume) 9.0 mg/dL 8.5-10.1 [facility] Carbon dioxide measurementOr dered By: Diego Reaves on 12-16-2024 CO2 [Moles/Vol] 29.0 mmol/L 21.0-32.0 [facility] Carbon dioxide measurement 29.0 mmol/L 21.0-32.0 [facility] Chloride measurementOrdered By: Diego Reaves on 12-16-2024 Chloride [Moles/Vol] 97 mmol/L Low 98-107 [facility] Chloride measurement 97 mmol/L Low 98-107 [facility] Creatinine [Mass/Vol]Ordered By: Diego Revaes on 12-16-2024 Serum or plasma creatinine measurement (mass/volume) 8.22 mg/dL High 0.70-1.30 [facility] Eosinophil percentageOrdered By: Diego Reaves on 12-16-2024 Eosinophils/100 WBC (Bld) 5.8 % High 0-5 [facility] Eosinophil percentage 5.8 % High 0-5 [facility] Erythrocyte distribution wid th (RBC) [Entitic vol]Ordered By: Diego Reaves on 12-16-2024 Erythrocyte distribution width standard deviation 67.9 fl High 35.1-43.9 [facility] Erythrocyte distribution wid th (RBC) [Ratio]Ordered By: Diego Reaves on 12-16-2024 Erythrocyte distribution width ratio 17.8 % High 11.6-14.6 [facility] Erythrocyte distribution wid th ratioOrdered By: Diego Reaves on 12-16-2024 Erythrocyte distribution width (RBC) [Ratio] 17.8 % High 11.6-14.6 [facility] Erythrocyte distribution wid th standard deviationOrdered By: Diego Reaves on 12-16-2024 Erythrocyte distribution width (RBC) [Ratio] 67.9 fl High 35.1-43.9 [facility] Erythrocyte morphology asses smentOrdered By: Diego Reaves on 12-16-2024 RBC morphology finding Nom (Bld) N CHROM NORMAL NORM C&C [facility] Estimated glomerular filtrat ion rate (GFR) AmericanOrdered By: Diego Reaves on 12-16-2024 Estimated glomerular filtration rate (GFR) 8 mL/min Low >60 [facility] Estimation of creatinine omkar aranceOrdered By: Diego Reaves on 12-16-2024 Estimation of creatinine clearance 7.26 ml/min [facility] Glomerular filtration rate ( GFR) estimationOrdered By: Diego Reaves on 12-16-2024 GFR/1.73 sq M.predicted among non-blacks MDRD (S/P/Bld) [Vol rate/Area] 7 mL/min/{1.73_m2} Low >60 [facility] Glomerular filtration rate (GFR) estimation 7 mL/min Low >60 [facility] Glucose measurementOrdered B y: Diego Reaves on 12-16-2024 Glucose [Mass/Vol] 101 mg/dL 74-106 [facility] Glucose measurement 101 mg/dL 74-106 [facility] Hematocrit Auto (Bld) [Volum e fraction]Ordered By: Diego Reaves on 12-16-2024 Hematocrit (Bld) [Volume fraction] 33.7 % Low 40-54 [facility] Automated blood hematocrit (percentage) 33.7 % Low 40-54 [facility] Hemoglobin measurementOrdere d By: Diego Reaves on 12-16-2024 Hemoglobin (Bld) [Mass/Vol] 11.1 g/dL Low 13.0-16.5 [facility] Hemoglobin measurement 11.1 g/dL Low 13.0-16.5 [facility] Immature granulocytes/100 WB C Auto (Bld)Ordered By: Diego Reaves on 12-16-2024 Immature granulocytes/100 WBC (Bld) 0.500 % 0.0-0.9 [facility] Automated immature granulocyte percentage 0.500 % 0.0-0.9 [facility] International normalized rat io (INR) calculationOrdered By: Diego Reaves on 12-16-2024 International normalized ratio (INR) calculation 1.9 [facility] Lymphocytes Auto (Unsp spec) [#/Vol]Ordered By: Diego Reaves on 12-16-2024 Absolute lymphocyte count 1.65 X10^3/uL 0.83-4.51 [facility] Lymphocytes/100 WBC Auto (Un sp spec)Ordered By: Diego Reaves on 12-16-2024 Automated lymphocyte count as percentage of total leukocytes 19.7 % 19-41 [facility] MCV (RBC) [Entitic vol]Order ed By: Diego Reaves on 12-16-2024 MCV (mean corpuscular volume) determination 104.7 fL High 80-94 [facility] MCV (mean corpuscular volume ) determinationOrdered By: Diego Reaves on 12-16-2024 MCV (RBC) [Entitic vol] 104.7 fL High 80-94 [facility] Macrocytes detectionOrdered By: Diego Reaves on 12-16-2024 Macrocytes Ql (Bld) 1+ [facility] Macrocytes detection 1+ [facility] Mean corpuscular hemoglobin (MCH) determinationOrdered By: Diego Reaves on 12-16-2024 MCH (RBC) [Entitic mass] 34.5 pg High 27.0-32.0 [facility] Mean corpuscular hemoglobin (MCH) determination 34.5 pg High 27.0-32.0 [facility] Mean corpuscular hemoglobin concentration (MCHC) determinationOrdered By: Diego Reaves on 12-16-2024 Mean corpuscular hemoglobin concentration (MCHC) determination 32.9 g/dL 32-36 [facility] Mean platelet volume determi nationOrdered By: Diego Reaves on 12-16-2024 Mean platelet volume determination 9.0 fl 6.2-12.0 [facility] Monocyte percentageOrdered B y: Diego Reaves on 12-16-2024 Monocytes/100 WBC (Bld) 9.1 % 0-10 [facility] Monocyte percentage 9.1 % 0-10 [facility] Neutrophil percentageOrdered By: Diego Reaves on 12-16-2024 Neutrophils/100 WBC (Bld) 63.8 % 47-70 [facility] Neutrophil percentage 63.8 % 47-70 [facility] No Panel InformationOrdered By: Diego Reaves on 12-16-2024 52 U/L High 15-37 [facility] Nucleated red blood cell per centageOrdered By: Diego Reaves on 12-16-2024 Nucleated red blood cell percentage 0 % 0-5 [facility] Platelet countOrdered By: Costa Reaves on 12-16-2024 Platelets (Bld) [#/Vol] 214 10*3/uL 150-450 [facility] Platelet count 214 K/mm3 150-450 [facility] Platelet estimateOrdered By: Diego Reaves on 12-16-2024 Platelets LM Ql (Bld) ADEQUATE ADEQ [facility] Platelets LM Ql (Bld)Ordered By: Diego Reaves on 12-16-2024 Platelet estimate ADEQUATE ADEQ [facility] Potassium measurementOrdered By: Diego Reaves on 12-16-2024 Potassium [Moles/Vol] 4.3 mmol/L 3.5-5.1 [facility] Potassium measurement 4.3 mmol/L 3.5-5.1 [facility] Prothrombin timeOrdered By: Diego Reaves on 12-16-2024 PT Coag (PPP) [Time] 22.6 s High 11.7-14.9 [facility] Prothrombin time 22.6 SECONDS High 11.7-14.9 [facility] RBC Auto (Bld) [#/Vol]Ordere d By: Diego Reaves on 12-16-2024 RBC (Bld) [#/Vol] 3.22 10*6/uL Low 4.6-6.2 [facility] Automated blood erythrocyte count 3.22 M/mm3 Low 4.6-6.2 [facility] RBC morphology finding Nom ( Bld)Ordered By: Diego Reaves on 12-16-2024 Erythrocyte morphology assessment N CHROM NORMAL NORM C&C [facility] Serum anion gap measurementO rdered By: Diego Reaves on 12-16-2024 Serum anion gap measurement 10 5-15 [facility] Serum globulin measurementOr dered By: Diego Reaves on 12-16-2024 Globulin (S) [Mass/Vol] 5.5 g/dL High 2.2-4.2 [facility] Serum globulin measurement 5.5 g/dL High 2.2-4.2 [facility] Serum or plasma alanine lorenzana otransferase (ALT) measurementOrdered By: Diego Reaves on 12-16-2024 ALT [Catalytic activity/Vol] 66 U/L High 16-61 [facility] Serum or plasma albumin khalif urement (mass/volume)Ordered By: Diego Reaves on 12-16-2024 Albumin [Mass/Vol] 3.5 g/dL 3.2-5.0 [facility] Serum or plasma alkaline guille sphatase measurementOrdered By: Diego Reaves on 12-16-2024 ALP [Catalytic activity/Vol] 449 U/L High 45-117 [facility] Serum or plasma calcium khalif urement (mass/volume)Ordered By: Diego Reaves on 12-16-2024 Calcium [Mass/Vol] 9.0 mg/dL 8.5-10.1 [facility] Serum or plasma creatinine m easurement (mass/volume)Ordered By: Diego Reaves on 12-16-2024 Creatinine [Mass/Vol] 8.22 mg/dL High 0.70-1.30 [facility] Serum or plasma urea nitroge n measurement (mass/volume)Ordered By: Diego Reaves on 12-16-2024 Urea nitrogen [Mass/Vol] 55 mg/dL High 7-18 [facility] Sodium levelOrdered By: Diego Reaves on 12-16-2024 Sodium [Moles/Vol] 135 mmol/L Low 136-145 [facility] Sodium level 135 mmol/L Low 136-145 [facility] Total proteinOrdered By: Cristian Reaves on 12-16-2024 Protein [Mass/Vol] 9.0 g/dL High 6.4-8.2 [facility] Total protein 9.0 g/dL High 6.4-8.2 [facility] Urea nitrogen [Mass/Vol]Orde red By: Diego Reaves on 12-16-2024 Serum or plasma urea nitrogen measurement (mass/volume) 55 mg/dL High 7-18 [facility] White blood cell (WBC) count Ordered By: Diego Reaves on 12-16-2024 WBC (Bld) [#/Vol] 8.4 10*3/uL 4.4-11.0 [facility] White blood cell (WBC) count 8.4 K/mm3 4.4-11.0 [facility] aPTT Coag (PPP) [Time]Ordere d By: Diego Reaves on 12-16-2024 Activated partial thromboplastin time (aPTT) in platelet poor plasma by coagulation a 88.1 Seconds High 24.1-36.2 [facility] No Panel Informationon 12-15 2.5 [facility] No Panel Informationon 12-08 2.5 [facility] No Panel Informationon 12-03 2.5 [facility] No Panel Informationon 12-01 4.5 High [facility] ALP [Catalytic activity/Vol] Ordered By: Timmy Miranda on 11-25-2024 Serum or plasma alkaline phosphatase measurement 397 U/L High 45-117 [facility] ALT [Catalytic activity/Vol] Ordered By: Timmy Miranda on 11-25-2024 Serum or plasma alanine aminotransferase (ALT) measurement 83 U/L High 16-61 [facility] Albumin Elph [Mass/Vol]Order ed By: Timmy Miranda on 11-25-2024 Serum or plasma albumin measurement by electrophoresis (mass/volume) 4.1 g/dL 2.9-4.4 [facility] Albumin [Mass/Vol]Ordered By : Timmy Miranda on 11-25-2024 Serum or plasma albumin measurement (mass/volume) 3.6 g/dL 3.2-5.0 [facility] Albumin to globulin ratioOrd ered By: Timmy Miranda on 11-25-2024 Albumin to globulin ratio 0.6 RATIO Low 0.9-2.4 [facility] Alpha 1 globulin Elph [Mass/ Vol]Ordered By: Timmy Miranda on 11-25-2024 Serum or plasma alpha 1 globulin measurement by electrophoresis (mass/volume) 0.4 g/dL 0.0-0.4 [facility] Serum or plasma alpha 1 globulin measurement by electrophoresis (mass/volume) 0.8 g/dL 0.4-1.0 [facility] Beta globulin Elph [Mass/Vol ]Ordered By: Timmy Miranda on 11-25-2024 Serum or plasma beta globulin measurement by electrophoresis (mass/volume) 1.3 g/dL 0.7-1.3 [facility] Bilirubin, totalOrdered By: Timmy Miranda on 11-25-2024 Bilirubin, total 1.00 mg/dL 0.20-1.00 [facility] Blood urea nitrogen (BUN)/cr eatinine ratioOrdered By: Timmy Miranda on 11-25-2024 Blood urea nitrogen (BUN)/creatinine ratio 7.0 RATIO Low 10-20 [facility] Calcium [Mass/Vol]Ordered By : Timmy Miranda on 11-25-2024 Serum or plasma calcium measurement (mass/volume) 9.4 mg/dL 8.5-10.1 [facility] Carbon dioxide measurementOr dered By: Timmy Miranda on 11-25-2024 Carbon dioxide measurement 28.0 mmol/L 21.0-32.0 [facility] Chloride measurementOrdered By: Timmy Miranda on 11-25-2024 Chloride measurement 94 mmol/L Low 98-107 [facility] Creatinine [Mass/Vol]Ordered By: Timmy Miranda on 11-25-2024 Serum or plasma creatinine measurement (mass/volume) 6.61 mg/dL High 0.70-1.30 [facility] Estimated glomerular filtrat ion rate (GFR) AmericanOrdered By: Timmy Miranda on 11-25-2024 Estimated glomerular filtration rate (GFR) 11 mL/min Low >60 [facility] Gamma globulin Elph [Mass/Vo l]Ordered By: Timmy Miranda on 11-25-2024 Serum or plasma gamma globulin measurement by electrophoresis (mass/volume) 2.2 g/dL High 0.4-1.8 [facility] Globulin (S) [Mass/Vol]Order ed By: Timmy Miranda on 11-25-2024 Serum globulin measurement (mass/volume) 4.7 g/dL High 2.2-3.9 [facility] Glomerular filtration rate ( GFR) estimationOrdered By: Timmy Miranda on 11-25-2024 Glomerular filtration rate (GFR) estimation 9 mL/min Low >60 [facility] Glucose measurementOrdered B y: Timmy Miranda on 11-25-2024 Glucose measurement 107 mg/dL High 74-106 [facility] IgA [Mass/Vol]Ordered By: Ra john Miranda on 11-25-2024 Serum or plasma IgA measurement (mass/volume) 183 mg/dL 61-437 [facility] IgG [Mass/Vol]Ordered By: Ra john Miranda on 11-25-2024 Serum or plasma IgG measurement (mass/volume) 1583 mg/dL 603-1613 [facility] Immunoglobulin M measurement Ordered By: Timmy Miranda on 11-25-2024 Immunoglobulin M measurement 982 mg/dL High 15-143 [facility] No Panel InformationOrdered By: Timmy Miranda on 11-25-2024 82 U/L High 15-37 [facility] Potassium measurementOrdered By: Timmy Miranda on 11-25-2024 Potassium measurement 4.2 mmol/L 3.5-5.1 [facility] Protein Fractions Immunofixa tion [place] [Interp]Ordered By: Timmy Miranda on 11-25-2024 Interpretation of serum or plasma protein pattern by immunofixation (narrative result Not Observed g/dL Not Observed [facility] Protein [Mass/Vol]Ordered By : Timmy Miranda on 11-25-2024 Serum or plasma protein measurement (mass/volume) 8.8 g/dL High 6.0-8.5 [facility] Serum albumin/globulin ratio Ordered By: Timmy Miranda on 11-25-2024 Serum albumin/globulin ratio 0.9 0.7-1.7 [facility] Serum anion gap measurementO rdered By: Timmy Miranda on 11-25-2024 Serum anion gap measurement 10 5-15 [facility] Serum or plasma immunoelectr ophoresis interpretation (nominal result)Ordered By: Timmy Miranda on 11-25-2024 Serum or plasma immunoelectrophoresis interpretation (nominal result) Comment . [facility] Sodium levelOrdered By: Berenice Miranda on 11-25-2024 Sodium level 131 mmol/L Low 136-145 [facility] Total proteinOrdered By: Andres Miranda on 11-25-2024 Total protein 9.8 g/dL High 6.4-8.2 [facility] Urea nitrogen [Mass/Vol]Orde red By: Timmy Miranda on 11-25-2024 Serum or plasma urea nitrogen measurement (mass/volume) 46 mg/dL High 7-18 [facility] Venous blood ammonia measure mentOrdered By: Timmy Miranda on 11-25-2024 Venous blood ammonia measurement 74.0 umol/L High 11-32 [facility] No Panel Informationon 11-24 3.3 [facility] No Panel Informationon 12-30 -2024 3.6 High [facility] No Panel Informationon 11-03 2.7 [facility] No Panel Informationon 10-27 3.1 [facility] AFP TUMOR MARKERon 4 AFP Tumor Marker 2.6 ng/mL Normal <8.1 [facility] Comment on above: Result Comment: This test was performed on the [employer] Immunoassay platform by [employer] which is a two-site sandwich chemiluminescent immunoassay. It is important to note that assays using different manufacturers and/or methods may not be comparable. Performed By: #### X M #### [facility] (DEFAULT) [address] [address] CBC AND ELECTRONIC DIFFon Basophils (Bld) [#/Vol] 0.07 10*3/uL Normal 0.00-0.09 [facility] Comment on above: Performed By: #### X M #### [facility] (DEFAULT) [address] [address] Basophils/100 WBC (Bld) 0.7 % Normal [facility] Comment on above: Performed By: #### X M #### [facility] (DEFAULT) [address] [address] DIFF STATUS Electronic Differential Normal [facility] Comment on above: Performed By: #### X M #### [facility] (DEFAULT) [address] [address] Eosinophils (Bld) [#/Vol] 0.45 10*3/uL Normal 0.00-0.48 [facility] Comment on above: Performed By: #### X M #### [facility] (DEFAULT) [address] [address] Eosinophils/100 WBC (Bld) 4.5 % Normal [facility] Comment on above: Performed By: #### X M #### [facility] (DEFAULT) [address] [address] Hematocrit (Bld) [Volume fraction] 36.5 % Low 39.6-48.8 [facility] Comment on above: Performed By: #### X M #### [facility] (DEFAULT) [address] [address] Hemoglobin (Bld) [Mass/Vol] 11.5 g/dL Low 13.4-16.8 [facility] Comment on above: Performed By: #### X M #### [facility] (DEFAULT) [address] [address] Immature Grans % 0.4 % Normal [facility] Comment on above: Performed By: #### X M #### [facility] (DEFAULT) [address] [address] Immature Grans Absolute 0.04 K/uL Normal <=0.[address] [facility] Comment on above: Performed By: #### X M #### [facility] (DEFAULT) [address] [address] Lymphocytes (Bld) [#/Vol] 1.74 10*3/uL Normal 0.83-3.57 [facility] Comment on above: Performed By: #### X M #### [facility] (DEFAULT) [address] [address] Lymphocytes/100 WBC (Bld) 17.6 % Normal [facility] Comment on above: Performed By: #### X M #### [facility] (DEFAULT) [address] [address] MCV (RBC) [Entitic vol] 106.7 fL High 79.0-94.[address] [facility] Comment on above: Performed By: #### X M #### [facility] (DEFAULT) [address] [address] Mean Cell Hgb 33.6 pg High 26.1-33.3 [facility] Comment on above: Performed By: #### X M #### [facility] (DEFAULT) [address] [place] [address] Mean Cell Hgb Conc 31.5 g/dL Low 31.9-36.5 [facility] Comment on above: Performed By: #### X M #### [facility] (DEFAULT) [address] [place] [address] Monocytes (Bld) [#/Vol] 0.98 10*3/uL High 0.24-0.93 [facility] Comment on above: Performed By: #### X M #### [facility] (DEFAULT) [address] [place] [address] Monocytes/100 WBC (Bld) 9.9 % Normal [facility] Comment on above: Performed By: #### X M #### [facility] (DEFAULT) [address] [place] [address] Nucleated RBC 0.0 /100 WBC Normal <=0.2 [facility] Comment on above: Performed By: #### X M #### [facility] (DEFAULT) [address] [place] [address] Platelet mean volume (Bld) [Entitic vol] 11.2 fL Normal 8.7-12.3 [facility] Comment on above: Performed By: #### X M #### [facility] (DEFAULT) [address] [place] [address] Platelets (Bld) [#/Vol] 180 10*3/uL Normal 146-337 [facility] Comment on above: Performed By: #### X M #### [facility] (DEFAULT) [address] [place] [address] RBC (Bld) [#/Vol] 3.42 10*6/uL Low 4.38-5.83 [facility] Comment on above: Performed By: #### X M #### [facility] (DEFAULT) [address] [place] [address] RBC Distribution 17.6 % High 10.9-14.3 [facility] Comment on above: Performed By: #### X M #### [facility] (DEFAULT) [address] [place] [address] Segs + Bands Auto 66.9 % Normal [facility] Comment on above: Performed By: #### X M #### [facility] (DEFAULT) [address] [place] [address] Segs + Bands,Absolute Auto 6.63 K/uL High 1.57-6.19 [facility] Comment on above: Performed By: #### X M #### [facility] (DEFAULT) [address] [place] [address] WBC (Bld) [#/Vol] 9.91 10*3/uL Normal 3.73-10.10 [facility] Comment on above: Performed By: #### X M #### [facility] (DEFAULT) [address] [place] [address] CHEM 6 (LYTES, BUN CREA)on 1 12-23-2023 Anion gap [Moles/Vol] 19 mmol/L High 7 - 17 mmol/L [facility] Chloride [Moles/Vol] 92 mmol/L Low 98 - 10 8 mmol/L [facility] CO2 [Moles/Vol] 31 mmol/L 21 - 31 mmol/L [facility] Creatinine [Mass/Vol] 7.96 mg/dL High 0.70 - 1.30 mg/dL [facility] eGFR, CKD-EPI, Male 7 Low - PINF [facility] Comment on above: Reported eGFR is bas ed on the CKD-EPI 2020 equation using creatinine, age, and sex. Potassium [Moles/Vol] 3.7 mmol/L 3.5 - 5.0 mmol/L [facility] Sodium [Moles/Vol] 138 mmol/L 135 - 145 mmol/L [facility] Urea nitrogen [Mass/Vol] 57 mg/dL High 7 - 25 mg/dL [facility] Urea nitrogen/Creatinine [Mass ratio] 7 mg/mg [facility] Anion gap [Moles/Vol] 19 mmol/L High 7-17 [facility] Comment on above: Performed By: #### S URGP #### [facility] (DEFAULT) [address] [place] [address] Chloride [Moles/Vol] 92 mmol/L Low 98-108 [facility] Comment on above: Performed By: #### S URGP #### [facility] (DEFAULT) [address] [place] [address] CO2 [Moles/Vol] 31 mmol/L Normal 21-31 [facility] Comment on above: Performed By: #### S URGP #### [facility] (DEFAULT) [address] [place] [address] Creatinine [Mass/Vol] 7.96 mg/dL High 0.70-1.30 [facility] Comment on above: Performed By: #### S URGP #### [facility] (DEFAULT) [address] [place] [address] GFR/1.73 sq M.predicted among non-blacks MDRD (S/P/Bld) [Vol rate/Area] 7 mL/min/{1.73_m2} Low >=60 [facility] Comment on above: Result Comment: Repo rted eGFR is based on the CKD-EPI 2020 equation using creatinine, age, and sex. Performed By: #### S URGP #### [facility] (DEFAULT) [address] [place] [address] Potassium [Moles/Vol] 3.7 mmol/L Normal 3.5-5.0 [facility] Comment on above: Performed By: #### S URGP #### [facility] (DEFAULT) [address] [place] [address] Sodium [Moles/Vol] 138 mmol/L Normal 135-145 [facility] Comment on above: Performed By: #### S URGP #### [facility] (DEFAULT) [address] [place] [address] Urea nitrogen [Mass/Vol] 57 mg/dL High 7-25 [facility] Comment on above: Performed By: #### S URGP #### [facility] (DEFAULT) [address] [place] [address] Urea nitrogen/Creatinine [Mass ratio] 7 mg/mg Normal [facility] Comment on above: Performed By: #### S URGP #### [facility] (DEFAULT) [address] [place] [address] HEPATIC FUNCTION PANELon Albumin [Mass/Vol] 4.4 g/dL 3.5 - 5.0 g/dL [facility] ALP [Catalytic activity/Vol] 410 U/L High 32 - 126 U/L [facility] ALT [Catalytic activity/Vol] 64 U/L High 10 - 52 U/L [facility] AST [Catalytic activity/Vol] 64 U/L High 10 - 39 U/L [facility] Bilirubin [Mass/Vol] 1.0 mg/dL [facility] mg/dL [facility] Bilirubin.direct [Mass/Vol] 0.4 mg/dL High NINF - 0.3 mg/dL [facility] Protein [Mass/Vol] 9.0 g/dL High 6.4 - 8.3 g/dL [facility] Albumin [Mass/Vol] 4.4 g/dL Normal 3.5-5.0 [facility] Comment on above: Performed By: #### S URGP #### [facility] (DEFAULT) [address] [place] [address] ALP [Catalytic activity/Vol] 410 U/L High 32-126 [facility] Comment on above: Performed By: #### S URGP #### [facility] (DEFAULT) [address] [place] [address] ALT [Catalytic activity/Vol] 64 U/L High 10-52 [facility] Comment on above: Performed By: #### S URGP #### [facility] (DEFAULT) [address] [place] [address] AST [Catalytic activity/Vol] 64 U/L High 10-39 [facility] Comment on above: Performed By: #### S URGP #### [facility] (DEFAULT) [address] [place] [address] Bilirubin [Mass/Vol] 1.0 mg/dL Normal <1.5 [facility] Comment on above: Performed By: #### S URGP #### [facility] (DEFAULT) [address] [place] [address] Bilirubin.indirect [Mass/Vol] 0.4 mg/dL High <0.3 [facility] Comment on above: Performed By: #### S URGP #### [facility] (DEFAULT) [address] [place] [address] Protein [Mass/Vol] 9.0 g/dL High 6.4-8.3 [facility] Comment on above: Performed By: #### S URGP #### [facility] (DEFAULT) [address] [place] [address] No Panel Informationon 10-22 Interpretation and review of laboratory results Abnormal [facility] PROTIME-INRon 10-22-2024 INR Coag (Bld) [Relative time] 2.1 {INR} High 0.9 - 1.1 [facility] Interpretation and review of laboratory results Abnormal [facility] PT Coag (PPP) [Time] 23.5 s High [facility] INR Coag (PPP) [Relative time] 2.1 {INR} High 0.9-1.1 [facility] Comment on above: Performed By: #### X M #### [facility] (DEFAULT) [address] [place] [address] PT Coag (PPP) [Time] 23.5 s High 11.9-14.2 [facility] Comment on above: Performed By: #### X M #### [facility] (DEFAULT) [address] [place] [address] No Panel Informationon 10-20 3.9 High [facility] Alanine aminotransferase (AL T) assayOrdered By: Karthikeyan Turner on 05-28-2024 ALT [Catalytic activity/Vol] 64 U/L High 16-61 [facility] Alkaline phosphataseOrdered By: Karthikeyan Turner on 05-28-2024 ALP [Catalytic activity/Vol] 359 U/L High 45-117 [facility] Bilirubin, totalOrdered By: Karthikeyan Turner on 05-28-2024 Bilirubin [Mass/Vol] 0.80 mg/dL 0.20-1.00 [facility] Carbon dioxide measurementOr dered By: Karthikyean Turner on 05-28-2024 CO2 [Moles/Vol] 28.0 mmol/L 21.0-32.0 [facility] Chloride measurementOrdered By: Karthikeyan Turner on 05-28-2024 Chloride [Moles/Vol] 93 mmol/L Low 98-107 [facility] Glomerular filtration rate ( GFR) estimationOrdered By: Karthikeyan Turner on 05-28-2024 GFR/1.73 sq M.predicted among non-blacks MDRD (S/P/Bld) [Vol rate/Area] 7 mL/min/{1.73_m2} Low >60 [facility] Glucose measurementOrdered B y: Karthikeyan Turner on 05-28-2024 Glucose [Mass/Vol] 128 mg/dL High 74-106 [facility] No Panel InformationOrdered By: Karthikeyan Turner on 05-28-2024 RARE [facility] 63 U/L High 15-37 [facility] Potassium measurementOrdered By: Karthikeyan uTrner on 05-28-2024 Potassium [Moles/Vol] 3.5 mmol/L 3.5-5.1 [facility] Serum albumin measurementOrd ered By: Karthikeyan Turner on 05-28-2024 Albumin [Mass/Vol] 3.4 g/dL 3.2-5.0 [facility] Serum globulin measurementOr dered By: Karthikeyan Turner on 05-28-2024 Globulin (S) [Mass/Vol] 5.8 g/dL High 2.2-4.2 [facility] Serum or plasma calcium khalif urement (mass/volume)Ordered By: Karthikeyan Turner on 05-28-2024 Calcium [Mass/Vol] 10.1 mg/dL 8.5-10.1 [facility] Serum or plasma creatinine m easurement (mass/volume)Ordered By: Karthikeyan Turner on 05-28-2024 Creatinine [Mass/Vol] 8.46 mg/dL High 0.70-1.30 [facility] Serum or plasma urea nitroge n measurement (mass/volume)Ordered By: Karthikeyan Turner on 05-28-2024 Urea nitrogen [Mass/Vol] 60 mg/dL High 7-18 [facility] Sodium levelOrdered By: Lebron Turner on 05-28-2024 Sodium [Moles/Vol] 133 mmol/L Low 136-145 [facility] Total proteinOrdered By: Lul Turner on 05-28-2024 Protein [Mass/Vol] 9.2 g/dL High 6.4-8.2 [facility] CBC AND ELECTRONIC DIFFon Basophils (Bld) [#/Vol] 0.09 10*3/uL 0.00 - 0.09 K/uL [facility] Basophils/100 WBC (Bld) 0.8 % [facility] Differential cell count method Nom (Bld) Electronic Differential [facility] Eosinophils (Bld) [#/Vol] 0.48 10*3/uL 0.00 - 0.48 K/uL [facility] Eosinophils/100 WBC (Bld) 4.3 % [facility] Erythrocyte distribution width (RBC) [Ratio] 17.2 % High 10.9 - 14.3 % [facility] Hematocrit (Bld) [Volume fraction] 38.7 % Low 39.6 - 48.8 % [facility] Hemoglobin (Bld) [Mass/Vol] 12.7 g/dL Low 13.4 - 16.8 g/dL [facility] Immature granulocytes (Bld) [#/Vol] 0.08 10*3/uL High NINF - 0.07 K/uL [facility] Immature granulocytes/100 WBC (Bld) 0.7 % [facility] Interpretation and review of laboratory results Abnormal [facility] Lymphocytes (Bld) [#/Vol] 2.40 10*3/uL 0.83 - 3.57 K/uL [facility] Lymphocytes/100 WBC (Bld) 21.7 % [facility] MCH (RBC) [Entitic mass] 34.9 pg High 26.1 - 33.3 pg [facility] MCHC (RBC) [Mass/Vol] 32.8 g/dL 31.9 - 36.5 g/dL [facility] MCV (RBC) [Entitic vol] 106.3 fL High 79.0 - 94.5 fL [facility] Comment on above: Results inconsistent with previous results Monocytes (Bld) [#/Vol] 1.24 10*3/uL High 0.24 - 0.93 K/uL [facility] Monocytes/100 WBC (Bld) 11.2 % [facility] Neutrophils (Bld) [#/Vol] 6.79 10*3/uL High 1.57 - 6.19 K/uL [facility] Nucleated RBC/100 WBC (Bld) [Ratio] 0.0 % [facility] Platelet mean volume (Bld) [Entitic vol] 9.3 fL 8.7 - 12.3 fL [facility] Platelets (Bld) [#/Vol] 247 10*3/uL 146 - 337 K/uL [facility] RBC (Bld) [#/Vol] 3.64 10*6/uL Low [facility] Segmented neutrophils/100 WBC (Bld) 61.3 % [facility] WBC (Bld) [#/Vol] 11.08 10*3/uL High 3.73 - 10 .10 K/uL [facility] CHEM 7 (LYTES,BUN,CREA,GLUC) Ordered By: Jenni Espinal on 04-02-2024 Anion gap [Moles/Vol] 24 mmol/L High 7 - 17 mmol/L [facility] Chloride [Moles/Vol] 91 mmol/L Low 98 - 10 8 mmol/L [facility] CO2 [Moles/Vol] 25 mmol/L 21 - 31 mmol/L [facility] Creatinine [Mass/Vol] 7.94 mg/dL High 0.70 - 1.30 mg/dL [facility] eGFR, CKD-EPI, Male 7 Low - PINF [facility] Comment on above: Reported eGFR is bas ed on the CKD-EPI 2020 equation using creatinine, age, and sex. Glucose [Mass/Vol] 94 mg/dL 70 - 99 mg/dL [facility] Interpretation and review of laboratory results Abnormal [facility] Osmolality Calc [Osmolality] 300 [facility] Potassium [Moles/Vol] 4.0 mmol/L 3.5 - 5.0 mmol/L [facility] Sodium [Moles/Vol] 136 mmol/L 135 - 145 mmol/L [facility] Urea nitrogen [Mass/Vol] 54 mg/dL High 7 - 25 mg/dL [facility] Urea nitrogen/Creatinine [Mass ratio] 7 mg/mg [facility] PT,INR,PTTon 04-02-2024 aPTT Coag (PPP) [Time] 56.0 s High [facility] INR Coag (Bld) [Relative time] 1.7 {INR} High 0.9 - 1.1 [facility] Interpretation and review of laboratory results Abnormal [facility] PT Coag (PPP) [Time] 19.9 s High [facility] US Heart limitedOrdered By: Jeff Grullon on 03-24-2024 Avg e' pk christie 0.10 m/s [facility] Work Phone: Avg E/e' ratio 12.35 [facility] Work Phone: Body surface area Derived from formula 1.89 m2 [facility] Work Phone: BP EF 49 % [facility] Work Phone: E wave decelartion time 295.09 msec O [facility] Work Phone: e' lateral pk christie 0.1095 m/s [facility] Work Phone: e' lateral pk christie 0.11 m/s [facility] Work Phone: e' septal pk christie 0.0900 m[facility]s [facility]: e' septal pk christie 0.09 m/s [facility] Work [facility]/e' [facility]: E/e' septal ratio 13.56 [facility] Work Phone: EF SP 2CH 50 [facility] Work Phone: EF SP 4CH 49 [facility] Work Phone: EST RAP 3.00 mmHg [facility] Work Phone: EST RVSP 36 mmHg [facility] Work Phone: FS 32 % 28 - 44 % [facility] Work Phone: IVC ostium 1.88 cm [facility] Work Phone: IVS 1.08 cm [facility] Work Phone: LA area 4CH 22.62 cm2 [facility] Work Phone: LA ESV SP 4CH (MOD) 77 mL [facility] Work Phone: LA size 5.04 cm [facility] Work Phone: LEFT ATRIAL DIAMETER INDEX 2.67 cm/m2 [facility] Work Phone: LV EDV BP 110 mL [facility] Work Phone: LV EDV SP 2CH 113 mL [facility] Work Phone: LV EDV SP 4CH 103 mL [facility] Work Phone: LV ESV BP 56 mL [facility] Work Phone: LV ESV SP 2CH 57 mL [facility] Work Phone: LV ESV SP 4CH 53 mL [facility] Work Phone: LV mass 272.55 g [facility] Work Phone: LV Mass Index 144.2 g/m2 [facility] Work Phone: LV RWT 0.33 [facility] Work Phone: LV stroke volume BP (ml) 54 mL [facility] Work Phone: LV stroke volume index BP 28.57 mL/m2 [facility] Work Phone: LVIDD 6.15 cm [facility] Work Phone: LVIDS 4.19 cm [facility] Work Phone: LVOT area 3.87 cm2 [facility] Work Phone: LVOT diameter 2.22 cm [facility] Work Phone: MV pk E christie 1.22 m/s [facility] Work Phone: MV stenosis pressure 1/2 time 85.57 ms [facility] Work Phone: MV valve area p 1/2 method 2.57 cm2 [facility] Work Phone: OSU ECHO LV BIPLANE SYSTOLIC VOLUME INDEX 29.63 mL/m2 [facility] Work Phone: [facility] ECHO LV BP DIASTOLIC VOLUME INDEX 58.20 mL/m2 [facility] Work Phone: [phone] PW 1.01 cm [facility] Work Phone: [phone] RA vol index 4CH (MOD) 26.98 mL/m2 [facility] Work Phone: [phone] Right atrium volume 4 chamber method of disks 51 mL [facility] Work Phone: [phone] RV S' 8.41 cm/s [facility] Work Phone: TR pk grad 33 mmHg [facility] Work Phone: [phone] TR pk christie 2.88 m/s [facility] Work Phone: [phone] [facility] Work Phone: Heart limited 4 Left [...] include technically difficult study. Imaging system used: [employer]. Clinical history: Prior to device changeout, scheduled 04/02. Asses EF to confirm if device upgrade is needed.. Indications Indications for study: LV function, abnormal ecg and atrial fib / atrial flutter. Wall Scoring Score Index: 2.00 The left ventricular wall motion is globally hypokinetic. [facility] Radiology Study observation (narrative) [facility] No Panel Informationon 12-24 INR International Normalized Ratio 2.7 [facility] No Panel Informationon 12-17 INR International Normalized Ratio 2.3 [facility] No Panel Informationon 12-10 INR International Normalized Ratio 2.6 [facility] AFP TUMOR MARKEROrdered By: Juan Carlos Calderon on 12-05-2023 AFP.tumor marker [Mass/Vol] ng/mL NINF - 8.1 ng/mL [facility] Comment on above: This test was perfor med on the [employer] IM Immunoassay platform by [employer] which is a two-site sandwich chemiluminescent immunoassay. It is important to note that assays using different manufacturers and/or methods may not be comparable. Interpretation and review of laboratory results Normal [facility] CHEM 6 (LYTES, BUN CREA)on 0 12-05-2023 Anion gap [Moles/Vol] 21 mmol/L High 7 - 17 mmol/L [facility] Chloride [Moles/Vol] 91 mmol/L Low 98 - 10 8 mmol/L [facility] CO2 [Moles/Vol] 28 mmol/L 21 - 31 mmol/L [facility] Creatinine [Mass/Vol] 8.10 mg/dL High 0.70 - 1.30 mg/dL [facility] eGFR, CKD-EPI, Male 6 Low - PINF [facility] Comment on above: Reported eGFR is bas ed on the CKD-EPI 2020 equation using creatinine, age, and sex. Potassium [Moles/Vol] 4.4 mmol/L 3.5 - 5.0 mmol/L [facility] Sodium [Moles/Vol] 136 mmol/L 135 - 145 mmol/L [facility] Urea nitrogen [Mass/Vol] 57 mg/dL High 7 - 25 mg/dL [facility] Urea nitrogen/Creatinine [Mass ratio] 7 mg/mg [facility] HEPATIC FUNCTION PANELon Albumin [Mass/Vol] 4.4 g/dL 3.5 - 5.0 g/dL [facility] ALP [Catalytic activity/Vol] 337 U/L High 32 - 126 U/L [facility] [facility] ALT [Catalytic activity/Vol] 56 U/L High 10 - 52 U/L [facility] AST [Catalytic activity/Vol] 63 U/L High 10 - 39 U/L [facility] Bilirubin [Mass/Vol] 1.0 mg/dL NINF - 1.5 mg/dL [facility] Bilirubin.direct [Mass/Vol] 0.3 mg/dL High NINF - 0.3 mg/dL [facility] Protein [Mass/Vol] 9.3 g/dL High 6.4 - 8.3 g/dL [facility] No Panel Informationon 12-05 Interpretation and review of laboratory results Abnormal [facility] PROTIME-INRon 01-17-2024 INR Coag (Bld) [Relative time] 1.8 {INR} High 0.9 - 1.1 [facility] Interpretation and review of laboratory results Abnormal [facility] PT Coag (PPP) [Time] 20.8 s High [facility] No Panel Informationon 12-03 INR International Normalized Ratio 2.9 [facility] No Panel Informationon 11-26 INR International Normalized Ratio 3.2 [facility] No Panel Informationon 11-19 INR International Normalized Ratio 3.8 [facility] No Panel Informationon 11-12 INR International Normalized Ratio 2.7 [facility] No Panel Informationon 11-05 INR International Normalized Ratio 2.7 [facility] No Panel Informationon 10-29 INR International Normalized Ratio 3.1 [facility] No Panel Informationon 10-22 INR International Normalized Ratio 3.7 [facility] No Panel Informationon 10-15 INR International Normalized Ratio 3.1 [facility] No Panel Informationon 10-08 INR International Normalized Ratio 4.0 [facility] Laboratory - Chemistry and C hemistry - challengeOrdered By: Castro Ferrara on 10-03-2023 Cobalamin (Vitamin B12) [Mass/Vol] 905 pg/mL 211-911 [facility] Free T4 [Mass/Vol] 1.01 ng/dL 0.76-1.46 [facility] No Panel InformationOrdered By: Castro Ferrara on 10-03-2023 Thyroid Stimulating Hormone (TSH) 4.40 uIU/mL 0.358-3.74 [facility] No Panel Informationon 10-01 INR International Normalized Ratio 3.7 [facility] No Panel Informationon 09-24 INR International Normalized Ratio 2.2 [facility] No Panel Informationon 09-17 INR International Normalized Ratio 3.3 [facility] No Panel Informationon 09-10 INR International Normalized Ratio 2.9 [facility] No Panel Informationon 09-03 INR International Normalized Ratio 2.2 [facility] No Panel Informationon 08-27 INR International Normalized Ratio 4.3 [facility] No Panel Informationon 08-20 INR International Normalized Ratio 2.8 [facility] No Panel Informationon 08-13 INR International Normalized Ratio 2.5 [facility] No Panel Informationon 08-06 INR International Normalized Ratio 2.1 [facility] No Panel Informationon 07-30 INR International Normalized Ratio 2.9 [facility] No Panel Informationon 07-23 INR International Normalized Ratio 3.2 [facility] No Panel Informationon 07-16 INR International Normalized Ratio 2.3 [facility] Basophil percentageOrdered B y: Castro Ferrara on 07-11-2023 Ammonia (P) [Moles/Vol] 25.0 umol/L 11-32 [facility] Bilirubin [Mass/Vol] 0.90 mg/dL 0.20-1.00 [facility] Comment on above: For patients on eltr ombopag therapy, use of Dimension [place] TBIL is not recommended. Protein [Mass/Vol] 7.9 g/dL 6.4-8.2 [facility] Direct bilirubinOrdered By: Castro Ferrara on 07-11-2023 Bilirubin.direct [Mass/Vol] 0.54 mg/dL 0.00-0.30 [facility] Laboratory - Chemistry and C hemistry - challengeOrdered By: Castro Ferrara on 07-11-2023 ALP [Catalytic activity/Vol] 572 U/L 45-117 [facility] ALT [Catalytic activity/Vol] 106 U/L 16-61 [facility] Globulin (S) [Mass/Vol] 5.2 g/dL 2.2-4.2 [facility] Serum or plasma albumin khalif urement (mass/volume)Ordered By: Castro Ferrara on 07-11-2023 Albumin [Mass/Vol] 2.7 g/dL 3.2-5.0 [facility] Thin prep Papanicolaou smear with manual screeningOrdered By: Castro Ferrara on 07-11-2023 Thin prep Papanicolaou smear with manual screening 99 U/L 15-37 [facility] No Panel Informationon 07-09 INR International Normalized Ratio 2.1 [facility] No Panel Informationon 07-02 INR International Normalized Ratio 2.7 [facility] No Panel Informationon 06-27 INR International Normalized Ratio 3.5 [facility] No Panel Informationon 06-25 INR International Normalized Ratio 4.8 [facility] No Panel Informationon 06-18 INR International Normalized Ratio 4.0 [facility] No Panel Informationon 06-15 INR International Normalized Ratio 3.3 [facility] INR in Blood by Coagulation assayOrdered By: Niels Flores on 06-11-2023 INR Coag (Bld) [Relative time] 1.8 {INR} [facility] Laboratory - CoagulationOrde red By: Niels Mark on 06-11-2023 PT Coag (PPP) [Time] 20.9 s 11.7-14.9 [facility] No Panel Informationon 06-08 INR International Normalized Ratio 2.5 [facility] No Panel Informationon 06-06 INR International Normalized Ratio 7.0 [facility] Absolute lymphocyte countOrd ered By: Karthikeyan Turner on 06-04-2023 Lymphocytes Auto (Unsp spec) [#/Vol] 1.59 10*3/uL 0.83-4.51 [facility] Albumin Elph [Mass/Vol]Order ed By: Timmy Miranda on 06-04-2023 Albumin [Mass/Vol] 3.6 g/dL 2.9-4.4 [facility] Basophil percentageOrdered B y: Timmy Miranda on 06-04-2023 Ammonia (P) [Moles/Vol] 26.0 umol/L 11-32 [facility] Basophil percentageOrdered B y: Karthikeyan Turner on 06-04-2023 Basophils/100 WBC (Bld) 0.5 % 0-1 [facility] Bilirubin [Mass/Vol] 0.80 mg/dL 0.20-1.00 [facility] Comment on above: For patients on eltr ombopag therapy, use of Dimension [place] TBIL is not recommended. Chloride [Moles/Vol] 97 mmol/L 98-107 [facility] Eosinophils/100 WBC (Bld) 1.2 % 0-5 [facility] Glucose [Mass/Vol] 183 mg/dL 74-106 [facility] Comment on above: Fasting Glucose resu lt greater than or equal to 126 mg/dL suggests DIABETES MELLITUS per A.D.A. criteria. LDH [Catalytic activity/Vol] 373 U/L 87-241 [facility] Neutrophils (Bld) [#/Vol] 12.0 10*3/uL 2.0-7.7 [facility] Neutrophils/100 WBC (Bld) 80.8 % 47-70 [facility] Potassium [Moles/Vol] 4.0 mmol/L 3.5-5.1 [facility] Protein [Mass/Vol] 9.6 g/dL 6.4-8.2 [facility] Sodium [Moles/Vol] 134 mmol/L 136-145 [facility] WBC (Bld) [#/Vol] 14.8 10*3/uL 4.4-11.0 [facility] Blood erythrocytes count (nu mber/volume)Ordered By: Karthikeyan Turner on 06-04-2023 RBC (Bld) [#/Vol] 3.30 10*6/uL 4.6-6.2 [facility] Blood hemoglobin measurement (mass/volume)Ordered By: Karthikeyan Turner on 06-04-2023 Hemoglobin (Bld) [Mass/Vol] 10.6 g/dL 13.0-16.5 [facility] Blood lymphocytes/100 leukoc ytesOrdered By: Karthikeyan Turner on 06-04-2023 Lymphocytes/100 WBC (Bld) 10.7 % 19-41 [facility] Blood monocytes/100 leukocyt esOrdered By: Karthikeyan Turner on 06-04-2023 Monocytes/100 WBC (Bld) 5.5 % 0-10 [facility] Blood platelet mean volumeOr dered By: Karthikeyan Turner on 06-04-2023 Platelet mean volume (Bld) [Entitic vol] 9.3 fL 6.2-12.0 [facility] Determination of erythrocyte mean corpuscular volume (MCV)Ordered By: Karthikeyan Turner on 06-04-2023 MCV (RBC) [Entitic vol] 100.6 fL 80-94 [facility] Hematocrit Auto (Bld) [Volum e fraction]Ordered By: Karthikeyan Turner on 06-04-2023 Hematocrit (Bld) [Volume fraction] 33.2 % 40-54 [facility] Interpretation of serum or p lasma protein pattern by immunofixation (narrative resultOrdered By: Timmy Miranda on 06-04-2023 Protein Fractions Immunofixation [place] [Interp] See comment [facility] Comment on above: NOT OBSERVED Laboratory - Chemistry and C hemistry - challengeOrdered By: Karthikeyan Turner on 06-04-2023 ALP [Catalytic activity/Vol] 564 U/L 45-117 [facility] ALT [Catalytic activity/Vol] 119 U/L 16-61 [facility] CO2 [Moles/Vol] 28.0 mmol/L 21.0-32.0 [facility] Urea nitrogen/Creatinine [Mass ratio] 6.2 mg/mg 10-20 [facility] Laboratory - Hematology and Cell countsOrdered By: Karthikeyan Turner on 06-04-2023 Erythrocyte distribution width (RBC) [Entitic vol] 62.4 fL 35.1-43.9 [facility] Erythrocyte distribution width (RBC) [Ratio] 17.2 % 11.6-14.6 [facility] Immature granulocytes/100 WBC (Bld) 1.300 % 0.0-0.9 [facility] Comment on above: IG% - Immature Granu locytes (promyelocytes, myelocytes and metamyelocytes) > 1% indicates that a LEFT SHIFT is Present. MCH (RBC) [Entitic mass] 32.1 pg 27.0-32.0 [facility] Nucleated RBC/100 WBC (Bld) [Ratio] 0 % 0-5 [facility] MCHC Auto (RBC) [Mass/Vol]Or dered By: Karthikeyan Turner on 06-04-2023 MCHC (RBC) [Mass/Vol] 31.9 g/dL 32-36 [facility] No Panel InformationOrdered By: Timmy Miranda on 06-04-2023 Addendum Document Comment . [facility] Comment on above: Protein electrophore sis scan will follow via computer,mail, or curtain fitter delivery.Performed at: [address] [id number] Director: Zen Joshi PhD, Phone: [phone] No Panel InformationOrdered By: Karthikeyan Turner on 06-04-2023 Estimated Creatinine Clearance Calc 7.94 ml/min [facility] Estimated GFR (MDRD) Amer 9 mL/min >60 [facility] Comment on above: GFR Calc Estimated GFR (MDRD) Non-Af Amer 7 mL/min >60 [facility] Comment on above: Non- GFR Calc No Panel Informationon 06-04 INR International Normalized Ratio 1.6 [facility] Platelets bldOrdered By: Lul Turner on 06-04-2023 Platelets (Bld) [#/Vol] 277 10*3/uL 150-450 [facility] Serum [id number] measu rement by electrophoresisOrdered By: Timmy Miranda on 06-04-2023 Alpha 1 globulin Elph [Mass/Vol] 0.4 g/dL 0.0-0.4 [facility] Alpha 1 globulin Elph [Mass/Vol] 1.0 g/dL 0.4-1.0 [facility] Serum globulin measurement ( mass/volume)Ordered By: Timmy Miranda on 06-04-2023 Globulin (S) [Mass/Vol] 4.6 g/dL 2.2-3.9 [facility] Serum or plasma IgA measurem ent (mass/volume)Ordered By: Timmy Miranda on 06-04-2023 IgA [Mass/Vol] 164 mg/dL 61-437 [facility] Serum or plasma IgG measurem ent (mass/volume)Ordered By: Timmy Miranda on 06-04-2023 IgG [Mass/Vol] 1594 mg/dL 603-1613 [facility] Serum or plasma IgM measurem ent (mass/volume)Ordered By: Timmy Miranda on 06-04-2023 IgM [Mass/Vol] 795 mg/dL High 15-143 [facility] Comment on above: Results confirmed on dilution. Serum or plasma albumin khalif urement (mass/volume)Ordered By: Karthikeyan Turner on 06-04-2023 Albumin [Mass/Vol] 3.3 g/dL 3.2-5.0 [facility] Serum or plasma albumin/glob ulin mass ratioOrdered By: Karthikeyan Turner on 06-04-2023 Albumin/Globulin [Mass ratio] 0.5 {ratio} 0.9-2.4 [facility] Serum or plasma beta globuli n measurement by electrophoresis (mass/volume)Ordered By: Timmy Miranda on 06-04-2023 Beta globulin Elph [Mass/Vol] 1.1 g/dL 0.7-1.3 [facility] Serum or plasma calcium khalif urement (mass/volume)Ordered By: Karthikeyan Turner on 06-04-2023 Calcium [Mass/Vol] 10.5 mg/dL 8.5-10.1 [facility] Serum or plasma creatinine m easurement (mass/volume)Ordered By: Karthikeyan Turner on 06-04-2023 Creatinine [Mass/Vol] 7.63 mg/dL 0.70-1.30 [facility] Comment on above: Critical Result(s) C alled at: 14:29:52 06/04/2023 by: Shana Herman to [facility]. Results read back by same.The validity of the calculated GFR & GFRAA in patients over 70 years has not been determined. Clinical correlation is essential. Serum or plasma gamma globul in measurement by electrophoresis (mass/volume)Ordered By: Timmy Miranda on 06-04-2023 Gamma globulin Elph [Mass/Vol] 2.0 g/dL High 0.4-1.8 [facility] Serum or plasma immunoelectr ophoresis interpretation (nominal result)Ordered By: Timmy Miranda on 06-04-2023 Interpretation IEP [Interp] Comment . [facility] Comment on above: No monoclonality det ected. Serum or plasma urea nitroge n measurement (mass/volume)Ordered By: Karthikeyan Turner on 06-04-2023 Urea nitrogen [Mass/Vol] 47 mg/dL 7-18 [facility] Thin prep Papanicolaou smear with manual screeningOrdered By: Karthikeyan Turner on 06-04-2023 Thin prep Papanicolaou smear with manual screening 98 U/L 15-37 [facility] Thin prep Papanicolaou smear with manual screening 9 5-15 [facility] Thin prep Papanicolaou smear with manual screeningOrdered By: Timmy Miranda on 06-04-2023 Thin prep Papanicolaou smear with manual screening 0.8 0.7-1.7 [facility] Total protein bloodOrdered B y: Timmy Miranda on 06-04-2023 Protein [Mass/Vol] 8.2 g/dL 6.0-8.5 [facility] No Panel Informationon 05-28 INR International Normalized Ratio 3.2 [facility] No Panel Informationon 05-25 INR International Normalized Ratio 2.8 [facility] No Panel Informationon 05-23 INR International Normalized Ratio 4.0 [facility] No Panel Informationon 05-21 INR International Normalized Ratio 5.1 [facility] No Panel Informationon 05-14 INR International Normalized Ratio 2.3 [facility] No Panel Informationon 05-07 INR International Normalized Ratio 3.0 [facility] No Panel Informationon 04-30 INR International Normalized Ratio 4.4 [facility] No Panel Informationon 04-23 INR International Normalized Ratio 2.6 [facility] INR in Blood by Coagulation assayOrdered By: Niesl Flores on 04-19-2023 INR Coag (Bld) [Relative time] 2.7 {INR} [facility] Laboratory - CoagulationOrde red By: Niels Flores on 04-19-2023 PT Coag (PPP) [Time] 29.4 s 11.7-14.9 [facility] No Panel Informationon 04-16 INR International Normalized Ratio 4.1 [facility] No Panel Informationon 04-09 INR International Normalized Ratio 2.7 [facility] No Panel Informationon 04-02 INR International Normalized Ratio 2.2 [facility] Absolute lymphocyte countOrd ered By: Dr. Palafox on 03-29-2023 Lymphocytes Auto (Unsp spec) [#/Vol] 1.60 10*3/uL 0.83-4.51 [facility] Basophil percentageOrdered B y: Dr. Palafox on 03-29-2023 Basophil percentage 106 mg/dL 74-106 [facility] Basophil percentage 139 mmol/L 136-145 [facility] Basophil percentage 4.3 mmol/L 3.5-5.1 [facility] Basophil percentage 99 mmol/L 98-107 [facility] Basophils (Bld) [#/Vol] 9.9 10*3/uL 4.4-11.0 [facility] Basophils (Bld) [#/Vol] 6.5 10*3/uL 2.0-7.7 [facility] Basophils/100 WBC (Bld) 66.0 % 47-70 [facility] Basophils/100 WBC (Bld) 5.5 % 0-5 [facility] Basophils/100 WBC (Bld) 0.7 % 0-1 [facility] Basophil percentageOrdered B y: Matt Palafox on 03-29-2023 Chloride [Moles/Vol] 99 mmol/L 98-107 [facility] Eosinophils/100 WBC (Bld) 5.5 % 0-5 [facility] Glucose [Mass/Vol] 106 mg/dL 74-106 [facility] Comment on above: Fasting Glucose resu lt from 100 to 125 mg/dL suggests IMPAIRED HOMEOSTASIS per A.D.A. criteria. Neutrophils (Bld) [#/Vol] 6.5 10*3/uL 2.0-7.7 [facility] Neutrophils/100 WBC (Bld) 66.0 % 47-70 [facility] Potassium [Moles/Vol] 4.3 mmol/L 3.5-5.1 [facility] Sodium [Moles/Vol] 139 mmol/L 136-145 [facility] WBC (Bld) [#/Vol] 9.9 10*3/uL 4.4-11.0 [facility] Basophil percentageOrdered B y: Dr. Wen on 03-29-2023 Basophil percentage 108 mg/dL 74-106 [facility] Basophil percentage 137 mmol/L 136-145 [facility] Basophil percentage 4.6 mmol/L 3.5-5.1 [facility] Basophil percentage 98 mmol/L 98-107 [facility] Basophils (Bld) [#/Vol] 10.5 10*3/uL 4.4-11.0 [facility] Chloride [Moles/Vol] 98 mmol/L 98-107 [facility] Glucose [Mass/Vol] 108 mg/dL 74-106 [facility] Comment on above: Fasting Glucose resu lt from 100 to 125 mg/dL suggests IMPAIRED HOMEOSTASIS per A.D.A. criteria. Potassium [Moles/Vol] 4.6 mmol/L 3.5-5.1 [facility] Sodium [Moles/Vol] 137 mmol/L 136-145 [facility] WBC (Bld) [#/Vol] 10.5 10*3/uL 4.4-11.0 [facility] Blood erythrocytes count (nu mber/volume)Ordered By: Dr. Palafox on 03-29-2023 RBC (Bld) [#/Vol] 3.09 10*6/uL 4.6-6.2 [facility] Blood erythrocytes count (nu mber/volume)Ordered By: Dr. Wen on 03-29-2023 RBC (Bld) [#/Vol] 3.19 10*6/uL 4.6-6.2 [facility] Blood hemoglobin measurement (mass/volume)Ordered By: Dr. Palafox on 03-29-2023 Hemoglobin (Bld) [Mass/Vol] 9.8 g/dL 13.0-16.5 [facility] Blood hemoglobin measurement (mass/volume)Ordered By: Dr. Wen on 03-29-2023 Hemoglobin (Bld) [Mass/Vol] 10.3 g/dL 13.0-16.5 [facility] Blood lymphocytes/100 leukoc ytesOrdered By: Dr. Palafox on 03-29-2023 Lymphocytes/100 WBC (Bld) 16.2 % 19-41 [facility] Blood monocytes/100 leukocyt esOrdered By: Dr. Palafox on 03-29-2023 Monocytes/100 WBC (Bld) 11.1 % 0-10 [facility] Blood platelet mean volumeOr dered By: Dr. Palafox on 03-29-2023 Platelet mean volume (Bld) [Entitic vol] 9.4 fL 6.2-12.0 [facility] Blood platelet mean volumeOr dered By: Dr. Wen on 03-29-2023 Platelet mean volume (Bld) [Entitic vol] 8.9 fL 6.2-12.0 [facility] Determination of erythrocyte mean corpuscular volume (MCV)Ordered By: Dr. Palafox on 03-29-2023 MCV (RBC) [Entitic vol] 100.6 fL 80-94 [facility] Determination of erythrocyte mean corpuscular volume (MCV)Ordered By: Dr. Wen on 03-29-2023 MCV (RBC) [Entitic vol] 100.9 fL 80-94 [facility] Hematocrit Auto (Bld) [Volum e fraction]Ordered By: Dr. Palafox on 03-29-2023 Hematocrit (Bld) [Volume fraction] 31.1 % 40-54 [facility] Hematocrit Auto (Bld) [Volum e fraction]Ordered By: Dr. Wen on 03-29-2023 Hematocrit (Bld) [Volume fraction] 32.2 % -54 [facility] INR in Blood by Coagulation assayOrdered By: Dr. Palafox on 03-29-2023 INR Coag (Bld) [Relative time] 2.6 {INR} [facility] INR in Blood by Coagulation assayOrdered By: Dr. Wen on 03-29-2023 INR Coag (Bld) [Relative time] 2.4 {INR} [facility] Laboratory - Chemistry and C hemistry - challengeOrdered By: Matt Palafox on 03-29-2023 CO2 [Moles/Vol] 27.0 mmol/L 21.0-32.0 [facility] Urea nitrogen/Creatinine [Mass ratio] 7.9 mg/mg 09-07 [facility] Laboratory - Chemistry and C hemistry - challengeOrdered By: Dr. Wen on 03-29-2023 CO2 [Moles/Vol] 28.0 mmol/L 21.0-32.0 [facility] Urea nitrogen/Creatinine [Mass ratio] 8.2 mg/mg 09-07 [facility] Laboratory - CoagulationOrde red By: Matt Palafox on 03-29-2023 PT Coag (PPP) [Time] 28.3 s 11.7-14.9 [facility] - CoagulationOrde red By: Dr. Wen on 03-29-2023 PT Coag (PPP) [Time] 26.4 s 11.7-14.9 [facility] Laboratory - Hematology and Cell countsOrdered By: Matt Palafox on 03-29-2023 Erythrocyte distribution width (RBC) [Entitic vol] 58.2 fL 35.1-43.9 [facility] Erythrocyte distribution width (RBC) [Ratio] 15.8 % 11.6-14.6 [facility] Immature granulocytes/100 WBC (Bld) 0.500 % 0.0-0.9 [facility] Comment on above: IG% - Immature Granu locytes (promyelocytes, myelocytes and metamyelocytes) > 1% indicates that a LEFT SHIFT is Present. MCH (RBC) [Entitic mass] 31.7 pg 27.0-32.0 [facility] Nucleated RBC/100 WBC (Bld) [Ratio] 0 % 0-5 [facility] Laboratory - Hematology and Cell countsOrdered By: Dr. Wen on 03-29-2023 Erythrocyte distribution width (RBC) [Entitic vol] 57.5 fL 35.1-43.9 [facility] Erythrocyte distribution width (RBC) [Ratio] 15.6 % 11.6-14.6 [facility] MCH (RBC) [Entitic mass] 32.3 pg 27.0-32.0 [facility] MCHC Auto (RBC) [Mass/Vol]Or dered By: Dr. Palafox on 03-29-2023 MCHC (RBC) [Mass/Vol] 31.5 g/dL 32-36 [facility] MCHC Auto (RBC) [Mass/Vol]Or dered By: Dr. Wen on 03-29-2023 MCHC (RBC) [Mass/Vol] 32.0 g/dL 32-36 [facility] No Panel InformationOrdered By: Matt Palafox on 03-29-2023 Estimated Creatinine Clearance Calc 6.08 ml/min [facility] Estimated GFR (MDRD) Amer 7 mL/min >60 [facility] Comment on above: GFR Calc Estimated GFR (MDRD) Non-Af Amer 6 mL/min >60 [facility] Comment on above: Non- GFR Calc No Panel InformationOrdered By: Dr. Palafox on 03-29-2023 31.7 pg 27.0-32.0 [facility] 15.8 % 11.6-14.6 [facility] 58.2 fl 35.1-43.9 [facility] 0.500 % 0.0-0.9 [facility] 0 % 0-5 [facility] 28.3 SECONDS 11.7-14.9 [facility] 6 mL/min >60 [facility] 7 mL/min >60 [facility] 6.08 ml/min [facility] 7.9 RATIO 10-20 [facility] 27.0 mmol/L 21.0-32.0 [facility] No Panel InformationOrdered By: Dr. Wen on 03-29-2023 Estimated Creatinine Clearance Calc 6.47 ml/min [facility] Estimated GFR (MDRD) Amer 7 mL/min >60 [facility] Comment on above: GFR Calc Estimated GFR (MDRD) Non-Af Amer 6 mL/min >60 [facility] Comment on above: Non- GFR Calc 32.3 pg 27.0-32.0 [facility] 15.6 % 11.6-14.6 [facility] 57.5 fl 35.1-43.9 [facility] 26.4 SECONDS 11.7-14.9 [facility] 6 mL/min >60 [facility] 7 mL/min >60 [facility] 6.47 ml/min [facility] 8.2 RATIO 10-20 [facility] 28.0 mmol/L 21.0-32.0 [facility] Platelets bldOrdered By: Dr. Palafox on 03-29-2023 Platelets (Bld) [#/Vol] 247 10*3/uL 150-450 [facility] Platelets bldOrdered By: Dr. Wen on 03-29-2023 Platelets (Bld) [#/Vol] 245 10*3/uL 150-450 [facility] Serum or plasma calcium khalif urement (mass/volume)Ordered By: Dr. Palafox on 03-29-2023 Calcium [Mass/Vol] 9.5 mg/dL 8.5-10.1 [facility] Serum or plasma calcium khalif urement (mass/volume)Ordered By: Dr. Wen on 03-29-2023 Calcium [Mass/Vol] 9.7 mg/dL 8.5-10.1 [facility] Serum or plasma creatinine m easurement (mass/volume)Ordered By: Dr. Palafox on 03-29-2023 Creatinine [Mass/Vol] 9.97 mg/dL 0.70-1.30 [facility] Comment on above: Critical Result(s) C alled at: 18:13:03 03/29/2023 by: KAYLIN VICTORIA to ANN MARIE PATINO. Results read back by same.The validity of the calculated GFR & GFRAA in patients over 70 years has not been determined. Clinical correlation is essential. Serum or plasma creatinine m easurement (mass/volume)Ordered By: Dr. Wen on 03-29-2023 Creatinine [Mass/Vol] 9.37 mg/dL 0.70-1.30 [facility] Comment on above: Critical Result(s) C alled at: 09:29:52 03/29/2023 by: Shana Feldman. Results read back by same.The validity of the calculated GFR & GFRAA in patients over 70 years has not been determined. Clinical correlation is essential. Serum or plasma urea nitroge n measurement (mass/volume)Ordered By: Dr. Palafox on 03-29-2023 Urea nitrogen [Mass/Vol] 79 mg/dL 06-05 [facility] Serum or plasma urea nitroge n measurement (mass/volume)Ordered By: Dr. Wen on 03-29-2023 Urea nitrogen [Mass/Vol] 77 mg/dL 06-05 [facility] Thin prep Papanicolaou smear with manual screeningOrdered By: Dr. Palafox on 03-29-2023 Thin prep Papanicolaou smear with manual screening 04-02 [facility] Thin prep Papanicolaou smear with manual screeningOrdered By: Dr. Wen on 03-29-2023 Thin prep Papanicolaou smear with manual screening 04-02 [facility] CYSTOSCOPYon 03-28-2023 Darrel echavarria MD 03/28/2023 [...] time he is not interested in this. [facility] Rad[facility] observation (narrative) [facility] No Panel Informationon 03-26 INR International Normalized Ratio 3.2 [facility] 3.2 [facility] No Panel Informationon 03-19 INR International Normalized Ratio 4.0 [facility] 4.0 [facility] No Panel Informationon 03-12 INR International Normalized Ratio 2.4 [facility] 2.4 [facility] No Panel Informationon 03-05 INR International Normalized Ratio 2.0 [facility] 2.0 [facility] No Panel Informationon 03-01 INR International Normalized Ratio 2.9 [facility] 2.9 [facility] No Panel Informationon 02-28 INR International Normalized Ratio 4.2 [facility] 4.2 [facility] No Panel Informationon 02-26 INR International Normalized Ratio 5.4 [facility] 5.4 [facility] No Panel Informationon 02-23 INR International Normalized Ratio 4.4 [facility] 4.4 [facility] INR in Blood by Coagulation assayOrdered By: Dr. Grullon on 02-02-2023 INR Coag (Bld) [Relative time] 2.2 {INR} [facility] Laboratory - CoagulationOrde red By: Dr. Grullon on 02-02-2023 PT Coag (PPP) [Time] 24.0 s 11.7-14.9 [facility] No Panel InformationOrdered By: Dr. Grullon on 02-02-2023 24.0 SECONDS 11.7-14.9 [facility] No Panel Informationon 01-31 INR International Normalized Ratio 4.6 [facility] 4.6 [facility] No Panel Informationon 01-29 INR International Normalized Ratio 5.7 [facility] 5.7 [facility] Absolute lymphocyte countOrd ered By: Dr. Ferrara on 01-24-2023 Lymphocytes Auto (Unsp spec) [#/Vol] 1.08 10*3/uL 0.83-4.51 [facility] Basophil percentageOrdered B y: Dr. Ferrara on 01-24-2023 Basophils (Bld) [#/Vol] 7.2 10*3/uL 4.4-11.0 [facility] Basophils (Bld) [#/Vol] 5.0 10*3/uL 2.0-7.7 [facility] Basophils/100 WBC (Bld) 0.8 % 0-1 [facility] Basophils/100 WBC (Bld) 68.6 % 47-70 [facility] Basophils/100 WBC (Bld) 4.9 % 0-5 [facility] Eosinophils/100 WBC (Bld) 4.9 % 0-5 [facility] Neutrophils (Bld) [#/Vol] 5.0 10*3/uL 2.0-7.7 [facility] Neutrophils/100 WBC (Bld) 68.6 % 47-70 [facility] WBC (Bld) [#/Vol] 7.2 10*3/uL 4.4-11.0 [facility] Blood erythrocytes count (nu mber/volume)Ordered By: Dr. Ferrara on 01-24-2023 RBC (Bld) [#/Vol] 3.56 10*6/uL 4.6-6.2 [facility] Blood hemoglobin measurement (mass/volume)Ordered By: Dr. Ferrara on 01-24-2023 Hemoglobin (Bld) [Mass/Vol] 11.2 g/dL 13.0-16.5 [facility] Blood lymphocytes/100 leukoc ytesOrdered By: Dr. Ferrara on 01-24-2023 Lymphocytes/100 WBC (Bld) 15.0 % 19-41 [facility] Blood monocytes/100 leukocyt esOrdered By: Dr. Ferrara on 01-24-2023 Monocytes/100 WBC (Bld) 10.0 % 0-10 [facility] Blood platelet mean volumeOr dered By: Dr. Ferrara on 01-24-2023 Platelet mean volume (Bld) [Entitic vol] 10.2 fL 6.2-12.0 [facility] Determination of erythrocyte mean corpuscular volume (MCV)Ordered By: Dr. Ferrara on 01-24-2023 MCV (RBC) [Entitic vol] 100.0 fL 80-94 [facility] Hematocrit Auto (Bld) [Volum e fraction]Ordered By: Dr. Ferrara on 01-24-2023 Hematocrit (Bld) [Volume fraction] 35.6 % 40-54 [facility] INR in Blood by Coagulation assayOrdered By: Dr. Ferrara on 01-24-2023 INR Coag (Bld) [Relative time] 2.5 {INR} [facility] Laboratory - CoagulationOrde red By: Dr. Ferrara on 01-24-2023 PT Coag (PPP) [Time] 26.8 s 11.7-14.9 [facility] Laboratory - Hematology and Cell countsOrdered By: Dr. Ferrara on 01-24-2023 Erythrocyte distribution width (RBC) [Entitic vol] 60.6 fL 35.1-43.9 [facility] Erythrocyte distribution width (RBC) [Ratio] 16.6 % 11.6-14.6 [facility] Immature granulocytes/100 WBC (Bld) 0.700 % 0.0-0.9 [facility] Comment on above: IG% - Immature Granu locytes (promyelocytes, myelocytes and metamyelocytes) > 1% indicates that a LEFT SHIFT is Present. MCH (RBC) [Entitic mass] 31.5 pg 27.0-32.0 [facility] Nucleated RBC/100 WBC (Bld) [Ratio] 0 % 0-5 [facility] MCHC Auto (RBC) [Mass/Vol]Or dered By: Dr. Ferrara on 01-24-2023 MCHC (RBC) [Mass/Vol] 31.5 g/dL 32-36 [facility] No Panel InformationOrdered By: Dr. Ferrara on 01-24-2023 31.5 pg 27.0-32.0 [facility] 16.6 % 11.6-14.6 [facility] 60.6 fl 35.1-43.9 [facility] 0.700 % 0.0-0.9 [facility] 0 % 0-5 [facility] 26.8 SECONDS 11.7-14.9 [facility] Platelets bldOrdered By: Dr. Ferrara on 01-24-2023 Platelets (Bld) [#/Vol] 127 10*3/uL 150-450 [facility] No Panel Informationon 01-22 INR International Normalized Ratio 1.6 [facility] 1.6 [facility] Absolute lymphocyte countOrd ered By: Dr. Centeno on 01-19-2023 Lymphocytes Auto (Unsp spec) [#/Vol] 1.13 10*3/uL 0.83-4.51 [facility] Basophil percentageOrdered B y: Dr. Centeno on 01-19-2023 Ammonia (P) [Moles/Vol] 38.0 umol/L 11-32 [facility] Basophil percentage 94 mg/dL 74-106 [facility] Basophil percentage 8.0 g/dL 6.4-8.2 [facility] Basophil percentage 1.20 mg/dL 0.20-1.00 [facility] Basophil percentage 133 mmol/L 136-145 [facility] Basophil percentage 4.6 mmol/L 3.5-5.1 [facility] Basophil percentage 98 mmol/L 98-107 [facility] Basophil percentage 38.0 umol/L 11-32 [facility] Basophils (Bld) [#/Vol] 8.4 10*3/uL 4.4-11.0 [facility] Basophils (Bld) [#/Vol] 5.8 10*3/uL 2.0-7.7 [facility] Basophils/100 WBC (Bld) 0.8 % 0-1 [facility] Basophils/100 WBC (Bld) 68.9 % 47-70 [facility] Basophils/100 WBC (Bld) 4.9 % 0-5 [facility] Bilirubin [Mass/Vol] 1.20 mg/dL 0.20-1.00 [facility] Comment on above: For patients on eltr ombopag therapy, use of Dimension [place] TBIL is not recommended. Chloride [Moles/Vol] 98 mmol/L 98-107 [facility] Eosinophils/100 WBC (Bld) 4.9 % 0-5 [facility] Glucose [Mass/Vol] 94 mg/dL 74-106 [facility] Neutrophils (Bld) [#/Vol] 5.8 10*3/uL 2.0-7.7 [facility] Neutrophils/100 WBC (Bld) 68.9 % 47-70 [facility] Potassium [Moles/Vol] 4.6 mmol/L 3.5-5.1 [facility] Protein [Mass/Vol] 8.0 g/dL 6.4-8.2 [facility] Sodium [Moles/Vol] 133 mmol/L 136-145 [facility] WBC (Bld) [#/Vol] 8.4 10*3/uL 4.4-11.0 [facility] Blood erythrocytes count (nu mber/volume)Ordered By: Dr. Centeno on 01-19-2023 RBC (Bld) [#/Vol] 3.45 10*6/uL 4.6-6.2 [facility] Blood hemoglobin measurement (mass/volume)Ordered By: Dr. Centeno on 01-19-2023 Hemoglobin (Bld) [Mass/Vol] 11.2 g/dL 13.0-16.5 [facility] Blood lymphocytes/100 leukoc ytesOrdered By: Dr. Centeno on 01-19-2023 Lymphocytes/100 WBC (Bld) 13.4 % 19-41 [facility] Blood monocytes/100 leukocyt esOrdered By: Dr. Centeno on 01-19-2023 Monocytes/100 WBC (Bld) 11.5 % 0-10 [facility] Blood platelet mean volumeOr dered By: Dr. Centeno on 01-19-2023 Platelet mean volume (Bld) [Entitic vol] 8.3 fL 6.2-12.0 [facility] Determination of erythrocyte mean corpuscular volume (MCV)Ordered By: Dr. Centeno on 01-19-2023 MCV (RBC) [Entitic vol] 95.4 fL 80-94 [facility] Comment on above: Delta: 103.7 on Hematocrit Auto (Bld) [Volum e fraction]Ordered By: Dr. Centeno on 01-19-2023 Hematocrit (Bld) [Volume fraction] 32.9 % 40-54 [facility] INR in Blood by Coagulation assayOrdered By: Dr. Rothman on 01-19-2023 INR Coag (Bld) [Relative time] 3.1 {INR} [facility] Laboratory - Chemistry and C hemistry - challengeOrdered By: Dr. Centeno on 01-19-2023 ALP [Catalytic activity/Vol] 517 U/L 45-117 [facility] ALT [Catalytic activity/Vol] 68 U/L 16-61 [facility] CO2 [Moles/Vol] 26.0 mmol/L 21.0-32.0 [facility] Globulin (S) [Mass/Vol] 4.9 g/dL 2.2-4.2 [facility] Urea nitrogen/Creatinine [Mass ratio] 6.9 mg/mg 10-20 [facility] - CoagulationOrde red By: Dr. Rothman on 01-19-2023 PT Coag (PPP) [Time] 31.9 s 11.7-14.9 [facility] - Hematology and Cell countsOrdered By: Dr. Centeno on 01-19-2023 Erythrocyte distribution width (RBC) [Entitic vol] 58.4 fL 35.1-43.9 [facility] Erythrocyte distribution width (RBC) [Ratio] 17.0 % 11.6-14.6 [facility] Immature granulocytes/100 WBC (Bld) 0.500 % 0.0-0.9 [facility] Comment on above: IG% - Immature Granu locytes (promyelocytes, myelocytes and metamyelocytes) > 1% indicates that a LEFT SHIFT is Present. MCH (RBC) [Entitic mass] 32.5 pg 27.0-32.0 [facility] Nucleated RBC/100 WBC (Bld) [Ratio] 0 % 0-5 [facility] MCHC Auto (RBC) [Mass/Vol]Or dered By: Dr. Centeno on 01-19-2023 MCHC (RBC) [Mass/Vol] 34.0 g/dL 32-36 [facility] Comment on above: Delta: 30.6 on 01/17 No Panel InformationOrdered By: Dr. Centeno on 01-19-2023 Estimated Creatinine Clearance Calc 10.32 ml/min [facility] Estimated GFR (MDRD) Amer 12 mL/min >60 [facility] Comment on above: GFR Calc Estimated GFR (MDRD) Non-Af Amer 10 mL/min >60 [facility] Comment on above: Non- GFR Calc 32.5 pg 27.0-32.0 [facility] 17.0 % 11.6-14.6 [facility] 58.4 fl 35.1-43.9 [facility] 0.500 % 0.0-0.9 [facility] 0 % 0-5 [facility] 10 mL/min >60 [facility] 12 mL/min >60 [facility] 10.32 ml/min [facility] 6.9 RATIO 10-20 [facility] 4.9 g/dL 2.2-4.2 [facility] 517 U/L 45-117 [facility] 68 U/L 16-61 [facility] 26.0 mmol/L 21.0-32.0 [facility] No Panel InformationOrdered By: Dr. Rothman on 01-19-2023 31.9 SECONDS 11.7-14.9 [facility] Platelets bldOrdered By: Dr. Centeno on 01-19-2023 Platelets (Bld) [#/Vol] 183 10*3/uL 150-450 [facility] Serum or plasma albumin khalif urement (mass/volume)Ordered By: Dr. Centeno on 01-19-2023 Albumin [Mass/Vol] 3.1 g/dL 3.2-5.0 [facility] Serum or plasma albumin/glob ulin mass ratioOrdered By: Dr. Centeno on 01-19-2023 Albumin/Globulin [Mass ratio] 0.6 {ratio} 0.9-2.4 [facility] Serum or plasma calcium khalif urement (mass/volume)Ordered By: Dr. Centeno on 01-19-2023 Calcium [Mass/Vol] 8.9 mg/dL 8.5-10.1 [facility] Serum or plasma creatinine m easurement (mass/volume)Ordered By: Dr. Centeno on 01-19-2023 Creatinine [Mass/Vol] 5.96 mg/dL 0.70-1.30 [facility] Comment on above: The validity of the calculated GFR & GFRAA in patients over 70 years has not been determined. Clinical correlation is essential. Serum or plasma urea nitroge n measurement (mass/volume)Ordered By: Dr. Centeno on 01-19-2023 Urea nitrogen [Mass/Vol] 41 mg/dL 7-18 [facility] Thin prep Papanicolaou smear with manual screeningOrdered By: Dr. Centeno on 01-19-2023 Thin prep Papanicolaou smear with manual screening 73 U/L 15-37 [facility] Thin prep Papanicolaou smear with manual screening 9 5-15 [facility] Lower GI hemoglobin IA Ql (S tl)Ordered By: Dr. Rothman on 01-18-2023 Stool Occult Blood (SNADRA) Positive [facility] Stool gastrointestinal hemoglobin detection by immunologic method Positive [facility] Absolute lymphocyte countOrd ered By: Dr. Garrison on 01-17-2023 Lymphocytes Auto (Unsp spec) [#/Vol] 1.26 10*3/uL 0.83-4.51 [facility] Absolute lymphocyte countOrd ered By: Dr. Grullon on 01-17-2023 Lymphocytes Auto (Unsp spec) [#/Vol] 1.42 10*3/uL 0.83-4.51 [facility] Basophil percentageOrdered B y: Dr. Garrison on 01-17-2023 Basophils/100 WBC (Bld) 0.7 % 0-1 [facility] Bilirubin [Mass/Vol] 0.80 mg/dL 0.20-1.00 [facility] Comment on above: For patients on eltr ombopag therapy, use of Dimension [place] TBIL is not recommended. Chloride [Moles/Vol] 98 mmol/L 98-107 [facility] Eosinophils/100 WBC (Bld) 6.0 % 0-5 [facility] Glucose [Mass/Vol] 120 mg/dL 74-106 [facility] Comment on above: Fasting Glucose resu lt from 100 to 125 mg/dL suggests IMPAIRED HOMEOSTASIS per A.D.A. criteria. Neutrophils (Bld) [#/Vol] 4.3 10*3/uL 2.0-7.7 [facility] Neutrophils/100 WBC (Bld) 61.7 % 47-70 [facility] Potassium [Moles/Vol] 4.0 mmol/L 3.5-5.1 [facility] Protein [Mass/Vol] 8.0 g/dL 6.4-8.2 [facility] Sodium [Moles/Vol] 137 mmol/L 136-145 [facility] WBC (Bld) [#/Vol] 7.0 10*3/uL 4.4-11.0 [facility] Basophil percentageOrdered B y: Dr. Grullon on 01-17-2023 Basophil percentage 96 mg/dL 74-106 [facility] Basophil percentage 8.3 g/dL 6.4-8.2 [facility] Basophil percentage 0.80 mg/dL 0.20-1.00 [facility] Basophil percentage 135 mmol/L 136-145 [facility] Basophil percentage 4.1 mmol/L 3.5-5.1 [facility] Basophil percentage 96 mmol/L 98-107 [facility] Basophils (Bld) [#/Vol] 8.0 10*3/uL 4.4-11.0 [facility] Basophils (Bld) [#/Vol] 5.2 10*3/uL 2.0-7.7 [facility] Basophils/100 WBC (Bld) 0.5 % 0-1 [facility] Basophils/100 WBC (Bld) 64.8 % 47-70 [facility] Basophils/100 WBC (Bld) 5.9 % 0-5 [facility] Bilirubin [Mass/Vol] 0.80 mg/dL 0.20-1.00 [facility] Comment on above: For patients on eltr ombopag therapy, use of Dimension [place] TBIL is not recommended. Chloride [Moles/Vol] 96 mmol/L 98-107 [facility] Eosinophils/100 WBC (Bld) 5.9 % 0-5 [facility] Glucose [Mass/Vol] 96 mg/dL 74-106 [facility] Neutrophils (Bld) [#/Vol] 5.2 10*3/uL 2.0-7.7 [facility] Neutrophils/100 WBC (Bld) 64.8 % 47-70 [facility] Potassium [Moles/Vol] 4.1 mmol/L 3.5-5.1 [facility] Protein [Mass/Vol] 8.3 g/dL 6.4-8.2 [facility] Sodium [Moles/Vol] 135 mmol/L 136-145 [facility] WBC (Bld) [#/Vol] 8.0 10*3/uL 4.4-11.0 [facility] Blood erythrocytes count (nu mber/volume)Ordered By: Dr. Garrison on 01-17-2023 RBC (Bld) [#/Vol] 2.14 10*6/uL 4.6-6.2 [facility] Blood erythrocytes count (nu mber/volume)Ordered By: Dr. Grullon on 01-17-2023 RBC (Bld) [#/Vol] 2.34 10*6/uL 4.6-6.2 [facility] Blood hemoglobin measurement (mass/volume)Ordered By: Dr. Garrison on 01-17-2023 Hemoglobin (Bld) [Mass/Vol] 6.8 g/dL 13.0-16.5 [facility] Blood hemoglobin measurement (mass/volume)Ordered By: Dr. Grullon on 01-17-2023 Hemoglobin (Bld) [Mass/Vol] 7.5 g/dL 13.0-16.5 [facility] Blood lymphocytes/100 leukoc ytesOrdered By: Dr. Garrison on 01-17-2023 Lymphocytes/100 WBC (Bld) 18.1 % 19-41 [facility] Blood lymphocytes/100 leukoc ytesOrdered By: Dr. Grullon on 01-17-2023 Lymphocytes/100 WBC (Bld) 17.7 % 19-41 [facility] Blood monocytes/100 leukocyt esOrdered By: Dr. Garrison on 01-17-2023 Monocytes/100 WBC (Bld) 12.9 % 0-10 [facility] Blood monocytes/100 leukocyt esOrdered By: Dr. Grullon on 01-17-2023 Monocytes/100 WBC (Bld) 10.5 % 0-10 [facility] Blood platelet mean volumeOr dered By: Dr. Garrison on 01-17-2023 Platelet mean volume (Bld) [Entitic vol] 9.0 fL 6.2-12.0 [facility] Blood platelet mean volumeOr dered By: Dr. Grullon on 01-17-2023 Platelet mean volume (Bld) [Entitic vol] 9.4 fL 6.2-12.0 [facility] Determination of erythrocyte mean corpuscular volume (MCV)Ordered By: Dr. Garrison on 01-17-2023 MCV (RBC) [Entitic vol] 103.7 fL 80-94 [facility] Determination of erythrocyte mean corpuscular volume (MCV)Ordered By: Dr. Grullon on 01-17-2023 MCV (RBC) [Entitic vol] 101.7 fL 80-94 [facility] Direct bilirubinOrdered By: Dr. Grullon on 01-17-2023 Bilirubin.direct [Mass/Vol] 0.39 mg/dL 0.00-0.30 [facility] Hematocrit Auto (Bld) [Volum e fraction]Ordered By: Dr. Garrison on 01-17-2023 Hematocrit (Bld) [Volume fraction] 22.2 % 40-54 [facility] Hematocrit Auto (Bld) [Volum e fraction]Ordered By: Dr. Grullon on 01-17-2023 Hematocrit (Bld) [Volume fraction] 23.8 % 40-54 [facility] INR in Blood by Coagulation assayOrdered By: Dr. Garrison on 01-17-2023 INR Coag (Bld) [Relative time] 3.6 {INR} [facility] INR in Blood by Coagulation assayOrdered By: Dr. Grullon on 01-17-2023 INR Coag (Bld) [Relative time] 3.4 {INR} [facility] - Chemistry and C hemistry - challengeOrdered By: Dr. Garrison on 01-17-2023 ALP [Catalytic activity/Vol] 481 U/L 45-117 [facility] ALT [Catalytic activity/Vol] 71 U/L 16- [facility] CO2 [Moles/Vol] 30.0 mmol/L 21.0-32.0 [facility] Globulin (S) [Mass/Vol] 4.8 g/dL 2.2-4.2 [facility] Urea nitrogen/Creatinine [Mass ratio] 8.7 mg/mg 10-20 [facility] - Chemistry and C hemistry - challengeOrdered By: Dr. Grullon on 01-17-2023 ALP [Catalytic activity/Vol] 519 U/L 45-117 [facility] ALT [Catalytic activity/Vol] 74 U/L 16-61 [facility] CO2 [Moles/Vol] 28.0 mmol/L 21.0-32.0 [facility] Globulin (S) [Mass/Vol] 5.1 g/dL 2.2-4.2 [facility] Urea nitrogen/Creatinine [Mass ratio] 8.6 mg/mg 10-20 [facility] - CoagulationOrde red By: Dr. Garrison on 01-17-2023 PT Coag (PPP) [Time] 35.8 s 11.7-14.9 [facility] - CoagulationOrde red By: Dr. Grullon on 01-17-2023 PT Coag (PPP) [Time] 33.8 s 11.7-14.9 [facility] - Hematology and Cell countsOrdered By: Dr. Garrison on 01-17-2023 Erythrocyte distribution width (RBC) [Entitic vol] 62.4 fL 35.1-43.9 [facility] Erythrocyte distribution width (RBC) [Ratio] 16.6 % 11.6-14.6 [facility] Immature granulocytes/100 WBC (Bld) 0.600 % 0.0-0.9 [facility] Comment on above: IG% - Immature Granu locytes (promyelocytes, myelocytes and metamyelocytes) > 1% indicates that a LEFT SHIFT is Present. MCH (RBC) [Entitic mass] 31.8 pg 27.0-32.0 [facility] Nucleated RBC/100 WBC (Bld) [Ratio] 0 % 0-5 [facility] - Hematology and Cell countsOrdered By: Dr. Grullon on 01-17-2023 Erythrocyte distribution width (RBC) [Entitic vol] 61.4 fL 35.1-43.9 [facility] Erythrocyte distribution width (RBC) [Ratio] 16.7 % 11.6-14.6 [facility] Immature granulocytes/100 WBC (Bld) 0.600 % 0.0-0.9 [facility] Comment on above: IG% - Immature Granu locytes (promyelocytes, myelocytes and metamyelocytes) > 1% indicates that a LEFT SHIFT is Present. MCH (RBC) [Entitic mass] 32.1 pg 27.0-32.0 [facility] Nucleated RBC/100 WBC (Bld) [Ratio] 0 % 0-5 [facility] Lower GI hemoglobin IA Ql (S tl)Ordered By: Karthikeyan Rothman on 01-17-2023 [facility] [Mass/Vol]Or dered By: Dr. Garrison on 01-17-2023 MCHC (RBC) [Mass/Vol] 30.6 g/dL 32-36 [facility] MCHC Auto (RBC) [Mass/Vol]Or dered By: Dr. Grullon on 01-17-2023 MCHC (RBC) [Mass/Vol] 31.5 g/dL 32-36 [facility] No Panel InformationOrdered By: Dr. Garrison on 01-17-2023 Estimated Creatinine Clearance Calc 8.02 ml/min [facility] Estimated GFR (MDRD) Amer 9 mL/min >60 [facility] Comment on above: GFR Calc Estimated GFR (MDRD) Non-Af Amer 7 mL/min >60 [facility] Comment on above: Non- GFR Calc No Panel InformationOrdered By: Dr. Grullon on 01-17-2023 Estimated GFR (MDRD) Amer 10 mL/min >60 [facility] [facility] Comment on above: GFR Calc Estimated GFR (MDRD) Non-Af Amer 8 mL/min >60 [facility] Comment on above: Non- GFR Calc 32.1 pg 27.0-32.0 [facility] 16.7 % 11.6-14.6 [facility] 61.4 fl 35.1-43.9 [facility] 0.600 % 0.0-0.9 [facility] 0 % 0-5 [facility] 8 mL/min >60 [facility] 10 mL/min >60 [facility] 8.6 RATIO 10-20 [facility] 5.1 g/dL 2.2-4.2 [facility] 519 U/L 45-117 [facility] 74 U/L 16-61 [facility] 28.0 mmol/L 21.0-32.0 [facility] Platelets bldOrdered By: Dr. Garrison on 01-17-2023 Platelets (Bld) [#/Vol] 235 10*3/uL 150-450 [facility] Platelets bldOrdered By: Dr. Grullon on 01-17-2023 Platelets (Bld) [#/Vol] 239 10*3/uL 150-450 [facility] Serum or plasma albumin khalif urement (mass/volume)Ordered By: Dr. Garrison on 01-17-2023 Albumin [Mass/Vol] 3.2 g/dL 3.2-5.0 [facility] Serum or plasma albumin khalif urement (mass/volume)Ordered By: Dr. Grullon on 01-17-2023 Albumin [Mass/Vol] 3.2 g/dL 3.2-5.0 [facility] Serum or plasma albumin/glob ulin mass ratioOrdered By: Dr. Garrison on 01-17-2023 Albumin/Globulin [Mass ratio] 0.7 {ratio} 0.9-2.4 [facility] Serum or plasma [id number] protein tumor marker measurement (units/volume)Ordered By: Dr. Grullon on 01-17-2023 AFP.tumor marker Qn < 1.8 ng/mL 0.0-8.4 [facility] Comment on above: [facility] [employer] El ectrochemiluminescence Immunoassay(ECLIA)Values obtained with different assay methods or kits cannotbe used interchangeably. Results cannot be interpreted asabsolute evidence of the presence or absence of malignantdisease.This test is not interpretable in females.Performed at: [address] [id number] Director: Zen Joshi PhD, Phone: [phone] Serum or plasma calcium khalif urement (mass/volume)Ordered By: Dr. Garrison on 01-17-2023 Calcium [Mass/Vol] 9.2 mg/dL 8.5-10.1 [facility] Serum or plasma calcium khalif urement (mass/volume)Ordered By: Dr. Grullon on 01-17-2023 Calcium [Mass/Vol] 9.6 mg/dL 8.5-10.1 [facility] Serum or plasma creatinine m easurement (mass/volume)Ordered By: Dr. Garrison on 01-17-2023 Creatinine [Mass/Vol] 7.67 mg/dL 0.70-1.30 [facility] Comment on above: Critical Result(s) C alled at: 18:40:59 01/17/2023 by: [facility] Results read back by same.The validity of the calculated GFR & GFRAA in patients over 70 years has not been determined. Clinical correlation is essential. Serum or plasma creatinine m easurement (mass/volume)Ordered By: Dr. Grullon on 01-17-2023 Creatinine [Mass/Vol] 7.21 mg/dL 0.70-1.30 [facility] Comment on above: The validity of the calculated GFR & GFRAA in patients over 70 years has not been determined. Clinical correlation is essential. Serum or plasma urea nitroge n measurement (mass/volume)Ordered By: Dr. Garrison on 01-17-2023 Urea nitrogen [Mass/Vol] 67 mg/dL 06-05 [facility] Serum or plasma urea nitroge n measurement (mass/volume)Ordered By: Dr. Grullon on 01-17-2023 Urea nitrogen [Mass/Vol] 62 mg/dL 06-05 [facility] Thin prep Papanicolaou smear with manual screeningOrdered By: Dr. Garrison on 01-17-2023 Thin prep Papanicolaou smear with manual screening 72 U/L [facility] Thin prep Papanicolaou smear with manual screening 9 04-02 [facility] Thin prep Papanicolaou smear with manual screeningOrdered By: Dr. Grullon on 01-17-2023 Thin prep Papanicolaou smear with manual screening 64 U/L [facility] Thin prep Papanicolaou smear with manual screening 11 04-02 [facility] INR in Blood by Coagulation assayOrdered By: Dr. Grullon on 01-03-2023 INR Coag (Bld) [Relative time] 3.6 {INR} [facility] Laboratory - CoagulationOrde red By: Dr. Grullon on 01-03-2023 PT Coag (PPP) [Time] 35.7 s 11.7-14.9 [facility] No Panel InformationOrdered By: Dr. Grullon on 01-03-2023 35.7 SECONDS 11.7-14.9 [facility] Basophil percentageOrdered B y: Dr. Grullon on 12-06-2022 Basophil percentage TNP [facility] Comment on above: Test not performed Basophil percentage 8.4 g/dL 6.4-8.2 [facility] Basophil percentage 1.00 mg/dL 0.20-1.00 [facility] Bilirubin [Mass/Vol] 1.00 mg/dL 0.20-1.00 [facility] Comment on above: For patients on eltr ombopag therapy, use of Dimension [place] TBIL is not recommended. Protein [Mass/Vol] 8.4 g/dL 6.4-8.2 [facility] Direct bilirubinOrdered By: Dr. Grullon on 12-06-2022 Bilirubin.direct [Mass/Vol] 0.61 mg/dL 0.00-0.30 [facility] INR in Blood by Coagulation assayOrdered By: Dr. Grullon on 12-06-2022 INR Coag (Bld) [Relative time] 2.4 {INR} [facility] Laboratory - Chemistry and C hemistry - challengeOrdered By: Dr. Grullon on 12-06-2022 ALP [Catalytic activity/Vol] 557 U/L 45-117 [facility] ALT [Catalytic activity/Vol] 143 U/L 16-61 [facility] Globulin (S) [Mass/Vol] 5.3 g/dL 2.2-4.2 [facility] Laboratory - CoagulationOrde red By: Dr. Grullon on 12-06-2022 PT Coag (PPP) [Time] 25.6 s 11.7-14.9 [facility] No Panel InformationOrdered By: Dr. Grullon on 12-06-2022 Addendum Document Comment . [facility] Comment on above: The quantitative ran ge of this assay is 15 IU/mL to 100million IU/mL. Hepatitis A Antibody Total Positive Negative [facility] Hepatitis B Core IgM Antibody Negative Negative [facility] Comment on above: Performed at: [id number] [place], [place] [id number] Director: Kenny Akbar MD, Phone: [phone] at: CB - [facility] [id number] [place], [place] [id number] Director: Zen Joshi PhD, Phone: [phone] Hepatitis B Surface Antigen Non-Reactive Nonreactive [facility] Hepatitis C Antibody Non-Reactive Nonreactive [facility] Comment on above: Non Reactive: < 0.8 Equivocal: >/= 0.8 to < 1.0 Reactive: >/= 1.0The [facility] recommends that a reactive/equivocal HCV antibody result be followed up by the HCV Nucleic Acid Amplificationtest (086566) 25.6 SECONDS 11.7-14.9 [facility] 5.3 g/dL 2.2-4.2 [facility] 557 U/L 45-117 [facility] 143 U/L 16-61 [facility] Positive Negative [facility] Negative Negative [facility] Non-Reactive Nonreactive [facility] Serum or plasma albumin khalif urement (mass/volume)Ordered By: Dr. Grullon on 12-06-2022 Albumin [Mass/Vol] 3.1 g/dL 3.2-5.0 [facility] Serum or plasma hepatitis C virus RNA measurement by probe and target amplification mOrdered By: Dr. Grullon on 12-06-2022 HCV RNA RENETTA+probe Qn Not detected . [facility] Thin prep Papanicolaou smear with manual screeningOrdered By: Dr. Grullon on 12-06-2022 Thin prep Papanicolaou smear with manual screening 101 U/L 15-37 [facility] Albumin Elph [Mass/Vol]on Albumin [Mass/Vol] 3.6 g/dL 2.9-4.4 [facility] Basophil percentageOrdered B y: Dr. Miranda on 11-22-2022 Basophil percentage 101 mg/dL 74-106 [facility] Basophil percentage 136 mmol/L 136-145 [facility] Basophil percentage 5.1 mmol/L 3.5-5.1 [facility] Basophil percentage 97 mmol/L 98-107 [facility] Basophils (Bld) [#/Vol] 9.5 10*3/uL 4.4-11.0 [facility] Chloride [Moles/Vol] 97 mmol/L 98-107 [facility] Glucose [Mass/Vol] 101 mg/dL 74-106 [facility] Comment on above: Fasting Glucose resu lt from 100 to 125 mg/dL suggests IMPAIRED HOMEOSTASIS per A.D.A. criteria. Potassium [Moles/Vol] 5.1 mmol/L 3.5-5.1 [facility] Sodium [Moles/Vol] 136 mmol/L 136-145 [facility] WBC (Bld) [#/Vol] 9.5 10*3/uL 4.4-11.0 [facility] Ammonia (P) [Moles/Vol] 27.0 umol/L - [facility] Basophil percentage 27.0 umol/L [facility] Basophil percentageon 2022 Basophil percentage Comment: . [facility] Comment on above: Presence of monoclon al protein is unclear at this time. Suggestrepeat in 3 to 6 months if clinically indicated.Performed at: - [place] [id number] Director: Zen Joshi PhD, Phone: [phone] Blood erythrocytes count (nu mber/volume)Ordered By: Dr. Miranda on 11-22-2022 RBC (Bld) [#/Vol] 3.20 10*6/uL 4.6-6.2 [facility] Blood hemoglobin measurement (mass/volume)Ordered By: Dr. Miranda on 11-22-2022 Hemoglobin (Bld) [Mass/Vol] 10.3 g/dL 13.0-16.5 [facility] Blood platelet mean volumeOr dered By: Dr. Miranda on 11-22-2022 Platelet mean volume (Bld) [Entitic vol] 9.3 fL 6.2-12.0 [facility] Determination of erythrocyte mean corpuscular volume (MCV)Ordered By: Dr. Miranda on 11-22-2022 MCV (RBC) [Entitic vol] 102.2 fL 80-94 [facility] Hematocrit Auto (Bld) [Volum e fraction]Ordered By: Dr. Miranda on 11-22-2022 Hematocrit (Bld) [Volume fraction] 32.7 % 40-54 [facility] Interpretation of serum or p lasma protein pattern by immunofixation (narrative resulton 11-22-2022 Protein Fractions Immunofixation [place] [Interp] See comment [facility] Comment on above: NOT OBSERVED Laboratory - Chemistry and C hemistry - challengeOrdered By: Dr. Miranda on 11-22-2022 CO2 [Moles/Vol] 32.0 mmol/L 21.0-32.0 [facility] Urea nitrogen/Creatinine [Mass ratio] 6.6 mg/mg 10-20 [facility] Laboratory - CoagulationOrde red By: Dr. Miranda on 11-22-2022 aPTT Coag (Bld) [Time] 63.2 s 24.1-36.2 [facility] Laboratory - Hematology and Cell countsOrdered By: Dr. Miranda on 11-22-2022 Erythrocyte distribution width (RBC) [Entitic vol] 62.9 fL 35.1-43.9 [facility] Erythrocyte distribution width (RBC) [Ratio] 17.2 % 11.6-14.6 [facility] MCH (RBC) [Entitic mass] 32.2 pg 27.0-32.0 [facility] MCHC Auto (RBC) [Mass/Vol]Or dered By: Dr. Miranda on 11-22-2022 MCHC (RBC) [Mass/Vol] 31.5 g/dL 32-36 [facility] No Panel InformationOrdered By: Dr. Miranda on 11-22-2022 Estimated GFR (MDRD) Amer 9 mL/min >60 [facility] Comment on above: GFR Calc Estimated GFR (MDRD) Non-Af Amer 8 mL/min >60 [facility] Comment on above: Non- GFR Calc 32.2 pg 27.0-32.0 [facility] 17.2 % 11.6-14.6 [facility] 62.9 fl 35.1-43.9 [facility] 63.2 Seconds 24.1-36.2 [facility] 8 mL/min >60 [facility] 9 mL/min >60 [facility] 6.6 RATIO 10-20 [facility] 32.0 mmol/L 21.0-32.0 [facility] No Panel Informationon 11-22 Addendum Document Comment . [facility] Comment on above: Protein electrophore sis scan will follow via computer,mail, or curtain fitter delivery. Free Lambda Light Chains, Quant 166.5 mg/L 5.7-26.3 [facility] 166.5 mg/L 5.7-26.3 [facility] Platelets bldOrdered By: Dr. Miranda on 11-22-2022 Platelets (Bld) [#/Vol] 268 10*3/uL 150-450 [facility] Serum [id number] measu rement by electrophoresison 11-22-2022 Alpha 1 globulin Elph [Mass/Vol] 0.5 g/dL 0.0-0.4 [facility] Alpha 1 globulin Elph [Mass/Vol] 0.8 g/dL 0.4-1.0 [facility] Serum immunoglobulin kappa l ight chains/immunoglobulin lambda light chains mass ratioon 11-22-2022 Immunoglobulin light chains.kappa/Immunoglob ulin light chains.lambda (S) [Mass ratio] 1.77 0.26-1.65 [facility] Serum or plasma IgA measurem ent (mass/volume)on 11-22-2022 IgA [Mass/Vol] 147 mg/dL 61-437 [facility] Serum or plasma IgG measurem ent (mass/volume)on 11-22-2022 IgG [Mass/Vol] 1495 mg/dL 603-1613 [facility] Serum or plasma IgM measurem ent (mass/volume)on 11-22-2022 IgM [Mass/Vol] 785 mg/dL 15-143 [facility] Comment on above: Results confirmed on dilution. Serum or plasma beta globuli n measurement by electrophoresis (mass/volume)on 11-22-2022 Beta globulin Elph [Mass/Vol] 1.2 g/dL 0.7-1.3 [facility] Serum or plasma calcium khalif urement (mass/volume)Ordered By: Dr. Miranda on 11-22-2022 Calcium [Mass/Vol] 9.4 mg/dL 8.5-10.1 [facility] Serum or plasma creatinine m easurement (mass/volume)Ordered By: Dr. Miranda on 11-22-2022 Creatinine [Mass/Vol] 7.58 mg/dL 0.70-1.30 [facility] Comment on above: Critical Result(s) C alled at: 11:20:48 11/22/2022 by: Shana Herman to Adalgisa Lofton. Results read back by same.The validity of the calculated GFR & GFRAA in patients over 70 years has not been determined. Clinical correlation is essential. Serum or plasma gamma globul in measurement by electrophoresis (mass/volume)on 11-22-2022 Gamma globulin Elph [Mass/Vol] 1.9 g/dL 0.4-1.8 [facility] Serum or plasma immunoelectr ophoresis interpretation (nominal result)on 11-22-2022 Interpretation IEP [Interp] Comment . [facility] Comment on above: No monoclonality det ected. Serum or plasma immunoglobul in kappa light chains measurement (mass/volume)on 11-22-2022 Immunoglobulin light chains.kappa [Mass/Vol] 294.0 mg/L 3.3-19.4 [facility] Serum or plasma urea nitroge n measurement (mass/volume)Ordered By: Dr. Miranda on 11-22-2022 Urea nitrogen [Mass/Vol] 50 mg/dL 7-18 [facility] Thin prep Papanicolaou smear with manual screeningOrdered By: Dr. Miranda on 11-22-2022 Thin prep Papanicolaou smear with manual screening 7 5-15 [facility] Thin prep Papanicolaou smear with manual screeningon 11-22-2022 Thin prep Papanicolaou smear with manual screening 0.9 0.7-1.7 [facility] Total protein bloodon 2022 Protein [Mass/Vol] 8.0 g/dL 6.0-8.5 [facility] INR in Blood by Coagulation assayOrdered By: Dr. Grullon on 11-06-2022 INR Coag (Bld) [Relative time] 2.4 {INR} [facility] Laboratory - CoagulationOrde red By: Dr. Grullon on 11-06-2022 PT Coag (PPP) [Time] 25.7 s 11.7-14.9 [facility] INR in Blood by Coagulation assayOrdered By: Dr. Grullon on 10-16-2022 INR Coag (Bld) [Relative time] 2.8 {INR} [facility] Laboratory - CoagulationOrde red By: Dr. Grullon on 10-16-2022 PT Coag (PPP) [Time] 29.0 s 11.7-14.9 [facility] Absolute lymphocyte countOrd ered By: Deja Jewell on 09-29-2022 Lymphocytes Auto (Unsp spec) [#/Vol] 1.69 10*3/uL 0.83-4.51 [facility] Basophil percentageOrdered B y: Deja Jewell on 09-29-2022 Basophils/100 WBC (Bld) 0.9 % 0-1 [facility] Eosinophils/100 WBC (Bld) 5.1 % 0-5 [facility] Neutrophils (Bld) [#/Vol] 3.8 10*3/uL 2.0-7.7 [facility] Neutrophils/100 WBC (Bld) 55.8 % 47-70 [facility] WBC (Bld) [#/Vol] 6.8 10*3/uL 4.4-11.0 [facility] Blood erythrocytes count (nu mber/volume)Ordered By: Deja Jewell on 09-29-2022 RBC (Bld) [#/Vol] 3.93 10*6/uL 4.6-6.2 [facility] Blood hemoglobin measurement (mass/volume)Ordered By: Deja Jewell on 09-29-2022 Hemoglobin (Bld) [Mass/Vol] 12.4 g/dL 13.0-16.5 [facility] Blood lymphocytes/100 leukoc ytesOrdered By: Deja Jewell on 09-29-2022 Lymphocytes/100 WBC (Bld) 24.9 % 19-41 [facility] Blood monocytes/100 leukocyt esOrdered By: Deja Jewell on 09-29-2022 Monocytes/100 WBC (Bld) 13.2 % 0-10 [facility] Blood platelet mean volumeOr dered By: Deja Jewell on 09-29-2022 Platelet mean volume (Bld) [Entitic vol] 10.2 fL 6.2-12.0 [facility] Determination of erythrocyte mean corpuscular volume (MCV)Ordered By: Deja Jewell on 09-29-2022 MCV (RBC) [Entitic vol] 99.0 fL 80-94 [facility] Hematocrit Auto (Bld) [Volum e fraction]Ordered By: Deja Jewell on 09-29-2022 Hematocrit (Bld) [Volume fraction] 38.9 % 40-54 [facility] Laboratory - Chemistry and C hemistry - challengeOrdered By: Dr. Grullon on 09-29-2022 Free T4 [Mass/Vol] 1.13 ng/dL 0.76-1.46 [facility] Laboratory - Hematology and Cell countsOrdered By: Deja Jewell on 09-29-2022 Erythrocyte distribution width (RBC) [Entitic vol] 54.4 fL 35.1-43.9 [facility] Erythrocyte distribution width (RBC) [Ratio] 14.8 % 11.6-14.6 [facility] Immature granulocytes/100 WBC (Bld) 0.100 % 0.0-0.9 [facility] Comment on above: IG% - Immature Granu locytes (promyelocytes, myelocytes and metamyelocytes) > 1% indicates that a LEFT SHIFT is Present. MCH (RBC) [Entitic mass] 31.6 pg 27.0-32.0 [facility] Nucleated RBC/100 WBC (Bld) [Ratio] 0 % 0-5 [facility] Lower GI hemoglobin IA Ql (S tl)Ordered By: Deja Jewell on 09-29-2022 Stool Occult Blood (SANDRA) Positive [facility] MCHC Auto (RBC) [Mass/Vol]Or dered By: Deja Jewell on 09-29-2022 MCHC (RBC) [Mass/Vol] 31.9 g/dL 32-36 [facility] No Panel InformationOrdered By: Dr. Grullon on 09-29-2022 Thyroid Stimulating Hormone (TSH) 0.72 uIU/mL 0.358-3.74 [facility] Platelets bldOrdered By: Ritu garcía Chicasne on 09-29-2022 Platelets (Bld) [#/Vol] 163 10*3/uL 150-450 [facility] INR in Blood by Coagulation assayOrdered By: Dr. Grullon on 09-18-2022 INR Coag (Bld) [Relative time] 2.3 {INR} [facility] Laboratory - CoagulationOrde red By: Dr. Grullon on 09-18-2022 PT Coag (PPP) [Time] 25.0 s 11.7-14.9 [facility] Absolute lymphocyte countOrd ered By: Dr. Ferrara on 09-04-2022 Lymphocytes Auto (Unsp spec) [#/Vol] 1.26 10*3/uL 0.83-4.51 [facility] Basophil percentageOrdered B y: Dr. Ferrara on 09-04-2022 Basophils/100 WBC (Bld) 0.8 % 0-1 [facility] Eosinophils/100 WBC (Bld) 7.1 % 0-5 [facility] Neutrophils (Bld) [#/Vol] 3.7 10*3/uL 2.0-7.7 [facility] Neutrophils/100 WBC (Bld) 58.9 % 47-70 [facility] WBC (Bld) [#/Vol] 6.2 10*3/uL 4.4-11.0 [facility] Blood erythrocytes count (nu mber/volume)Ordered By: Dr. Ferrara on 09-04-2022 RBC (Bld) [#/Vol] 3.67 10*6/uL 4.6-6.2 [facility] Blood hemoglobin measurement (mass/volume)Ordered By: Dr. Ferrara on 09-04-2022 Hemoglobin (Bld) [Mass/Vol] 11.6 g/dL 13.0-16.5 [facility] Blood lymphocytes/100 leukoc ytesOrdered By: Dr. Ferrara on 09-04-2022 Lymphocytes/100 WBC (Bld) 20.2 % 19-41 [facility] Blood monocytes/100 leukocyt esOrdered By: Dr. Ferrara on 09-04-2022 Monocytes/100 WBC (Bld) 12.8 % 0-10 [facility] Blood platelet mean volumeOr dered By: Dr. Ferrara on 09-04-2022 Platelet mean volume (Bld) [Entitic vol] 10.1 fL 6.2-12.0 [facility] Determination of erythrocyte mean corpuscular volume (MCV)Ordered By: Dr. Ferrara on 09-04-2022 MCV (RBC) [Entitic vol] 100.3 fL 80-94 [facility] Hematocrit Auto (Bld) [Volum e fraction]Ordered By: Dr. Ferrara on 09-04-2022 Hematocrit (Bld) [Volume fraction] 36.8 % 40-54 [facility] Laboratory - Hematology and Cell countsOrdered By: Dr. Ferrara on 09-04-2022 Erythrocyte distribution width (RBC) [Entitic vol] 59.2 fL 35.1-43.9 [facility] Erythrocyte distribution width (RBC) [Ratio] 16.1 % 11.6-14.6 [facility] Immature granulocytes/100 WBC (Bld) 0.200 % 0.0-0.9 [facility] Comment on above: IG% - Immature Granu locytes (promyelocytes, myelocytes and metamyelocytes) > 1% indicates that a LEFT SHIFT is Present. MCH (RBC) [Entitic mass] 31.6 pg 27.0-32.0 [facility] Nucleated RBC/100 WBC (Bld) [Ratio] 0 % 0-5 [facility] MCHC Auto (RBC) [Mass/Vol]Or dered By: Dr. Ferrara on 09-04-2022 MCHC (RBC) [Mass/Vol] 31.5 g/dL 32-36 [facility] Platelets bldOrdered By: Dr. Ferrara on 09-04-2022 Platelets (Bld) [#/Vol] 164 10*3/uL 150-450 [facility] INR in Blood by Coagulation assayOrdered By: Dr. Grullon on 08-28-2022 INR Coag (Bld) [Relative time] 4.1 {INR} [facility] Comment on above: CRITICAL VALUE VERIF IED. CALLED TO TRINA CORMIER08/28/22 1324 Sherley Mckeon.RESULTS READ BACK BY SAME . Laboratory - CoagulationOrde red By: Dr. Grullon on 08-28-2022 PT Coag (PPP) [Time] 39.5 s 11.7-14.9 [facility] INR in Blood by Coagulation assayon 08-17-2022 INR Coag (Bld) [Relative time] 5.9 {INR} [facility] Work Phone: Comment on above: CRITICAL VALUE VERIF IED. CALLED TO [place] 1989808/17/22 1134 Hubert De Los Santos.RESULTS READ BACK BY SAME. Laboratory - Coagulationon 0 08-17-2022 PT Coag (PPP) [Time] 52.7 s 11.7-14.9 [facility] Work Phone: [phone] INR in Blood by Coagulation assayon 08-03-2022 INR Coag (Bld) [Relative time] 3.3 {INR} [facility] Work Phone: Laboratory - Coagulationon 0 08-03-2022 PT Coag (PPP) [Time] 33.3 s 11.7-14.9 [facility] Work Phone: [phone] Absolute lymphocyte counton 07-28-2022 Lymphocytes Auto (Unsp spec) [#/Vol] 1.04 10*3/uL 0.83-4.51 [facility] Work Phone: [phone] Basophil percentageon 2021 Basophils/100 WBC (Bld) 0.5 % 0-1 [facility] Work Phone: Eosinophils/100 WBC (Bld) 5.2 % 0-5 [facility] Work Phone: Neutrophils (Bld) [#/Vol] 3.7 10*3/uL 2.0-7.7 [facility] Work Phone: Neutrophils/100 WBC (Bld) 63.4 % 47-70 [facility] Work Phone: WBC (Bld) [#/Vol] 5.8 10*3/uL 4.4-11.0 [facility] Work Phone: Blood erythrocytes count (nu mber/volume)on 07-28-2022 RBC (Bld) [#/Vol] 2.57 10*6/uL 4.6-6.2 [facility] Work Phone: Blood hemoglobin measurement (mass/volume)on 07-28-2022 Hemoglobin (Bld) [Mass/Vol] 8.2 g/dL 13.0-16.5 [facility] Work Phone: Blood lymphocytes/100 leukoc yteson 07-28-2022 Lymphocytes/100 WBC (Bld) 17.9 % 19-41 [facility] Work Phone: Blood monocytes/100 leukocyt eson 07-28-2022 Monocytes/100 WBC (Bld) 12.7 % 0-10 [facility] Work Phone: Blood platelet mean volumeon 07-28-2022 Platelet mean volume (Bld) [Entitic vol] 10.0 fL 6.2-12.0 [facility] Work Phone: Determination of erythrocyte mean corpuscular volume (MCV)on 07-28-2022 MCV (RBC) [Entitic vol] 102.7 fL 80-94 [facility] Work Phone: Hematocrit Auto (Bld) [Volum e fraction]on 07-28-2022 Hematocrit (Bld) [Volume fraction] 26.4 % 40-54 [facility] [facility] Work [facility]: Laboratory - Hematology and Cell countson 07-28-2022 Erythrocyte distribution width (RBC) [Entitic vol] 63.8 fL 35.1-43.9 [facility] Work Phone: Erythrocyte distribution width (RBC) [Ratio] 17.0 % 11.6-14.6 [facility] Work Phone: Immature granulocytes/100 WBC (Bld) 0.300 % 0.0-0.9 [facility] Work Phone: Comment on above: IG% - Immature Granu locytes (promyelocytes, myelocytes and metamyelocytes) > 1% indicates that a LEFT SHIFT is Present. MCH (RBC) [Entitic mass] 31.9 pg 27.0-32.0 [facility] Work Phone: Nucleated RBC/100 WBC (Bld) [Ratio] 0 % 0-5 [facility] Work Phone: MCHC Auto (RBC) [Mass/Vol]on 07-28-2022 MCHC (RBC) [Mass/Vol] 31.1 g/dL 32-36 [facility] Work Phone: Platelets bldon 07-28-2022 Platelets (Bld) [#/Vol] 103 10*3/uL 150-450 [facility] Work Phone: Basophil percentageon 2021 Bilirubin [Mass/Vol] 0.70 mg/dL 0.20-1.00 [facility] Work Phone: Comment on above: For patients on eltr ombopag therapy, use of Dimension [place] TBIL is not recommended. Chloride [Moles/Vol] 99 mmol/L 98-107 [facility] Work Phone: Glucose [Mass/Vol] 142 mg/dL 74-106 [facility] Work Phone: Comment on above: Fasting Glucose resu lt greater than or equal to 126 mg/dL suggests DIABETES MELLITUS per A.D.A. criteria. Potassium [Moles/Vol] 3.8 mmol/L 3.5-5.1 [facility] Work Phone: Protein [Mass/Vol] 6.2 g/dL 6.4-8.2 [facility] Work Phone: Sodium [Moles/Vol] 136 mmol/L 136-145 [facility] Work Phone: Direct bilirubinon 2 Bilirubin.direct [Mass/Vol] 0.41 mg/dL 0.00-0.30 [facility] Work Phone: Laboratory - Chemistry and C hemistry - challengeon 07-20-2022 ALP [Catalytic activity/Vol] 297 U/L 45-117 [facility] Work Phone: ALT [Catalytic activity/Vol] 26 U/L 16-61 [facility] Work Phone: CO2 [Moles/Vol] 25.0 mmol/L 21.0-32.0 [facility] Work Phone: Globulin (S) [Mass/Vol] 3.4 g/dL 2.2-4.2 [facility] Work Phone: Urea nitrogen/Creatinine [Mass ratio] 7.6 mg/mg 10-20 [facility] Work Phone: Laboratory - Coagulationon 0 07-20-2022 aPTT Coag (Bld) [Time] 37.8 s 24.1-36.2 [facility] Work Phone: No Panel Informationon 07-20 Estimated GFR (MDRD) Amer 10 mL/min >60 [facility] Work Phone: Comment on above: GFR Calc Estimated GFR (MDRD) Non-Af Amer 8 mL/min >60 [facility] Work Phone: Comment on above: Non- GFR Calc Serum or plasma albumin khalif urement (mass/volume)on 07-20-2022 Albumin [Mass/Vol] 2.8 g/dL 3.2-5.0 [facility] Work Phone: Serum or plasma [id number] protein tumor marker measurement (units/volume)on 07-20-2022 AFP.tumor marker Qn 1.1 ng/mL 0.0-8.4 [facility] Work Phone: Comment on above: [facility] [employer] [place] ectrochemiluminescence Immunoassay(ECLIA)Values obtained with different assay methods or kits cannotbe used interchangeably. Results cannot be interpreted asabsolute evidence of the presence or absence of malignantdisease.This test is not interpretable in females.Performed at: [address] [id number] Director: Zen Joshi PhD, Phone: [phone] Serum or plasma calcium khalif urement (mass/volume)on 07-20-2022 Calcium [Mass/Vol] 7.4 mg/dL 8.5-10.1 [facility] Work Phone: Serum or plasma creatinine m easurement (mass/volume)on 07-20-2022 Creatinine [Mass/Vol] 6.95 mg/dL 0.70-1.30 [facility] Work Phone: Comment on above: The validity of the calculated GFR & GFRAA in patients over 70 years has not been determined. Clinical correlation is essential. Serum or plasma urea nitroge n measurement (mass/volume)on 07-20-2022 Urea nitrogen [Mass/Vol] 53 mg/dL 7-18 [facility] Work Phone: Thin prep Papanicolaou smear with manual screeningon 07-20-2022 Thin prep Papanicolaou smear with manual screening 31 U/L 15-37 [facility] Work Phone: Thin prep Papanicolaou smear with manual screening 12 5-15 [facility] Work Phone: Absolute lymphocyte counton 07-18-2022 Lymphocytes Auto (Unsp spec) [#/Vol] 0.97 10*3/uL 0.83-4.51 [facility] Work Phone: Basophil percentageon 2021 Basophils/100 WBC (Bld) 0.6 % 0-1 [facility] Work Phone: Bilirubin [Mass/Vol] 0.80 mg/dL 0.20-1.00 [facility] Work Phone: Comment on above: For patients on eltr ombopag therapy, use of Dimension [place] TBIL is not recommended. Chloride [Moles/Vol] 95 mmol/L 98-107 [facility] Work Phone: Eosinophils/100 WBC (Bld) 5.8 % 0-5 [facility] Work Phone: Glucose [Mass/Vol] 83 mg/dL 74-106 [facility] Work Phone: Neutrophils (Bld) [#/Vol] 4.5 10*3/uL 2.0-7.7 [facility] Work Phone: Neutrophils/100 WBC (Bld) 66.9 % 47-70 [facility] Work Phone: [phone] Potassium [Moles/Vol] 3.9 mmol/L 3.5-5.1 [facility]: Protein [Mass/Vol] 5.7 g/dL 6.4-8.2 [facility]: Sodium [Moles/Vol] 133 mmol/L 136-145 [facility] Work Phone: WBC (Bld) [#/Vol] 6.7 10*3/uL 4.4-11.0 [facility] Work Phone: Blood erythrocytes count (nu mber/volume)on 07-18-2022 RBC (Bld) [#/Vol] 2.59 10*6/uL 4.6-6.2 [facility] Work Phone: Blood hemoglobin measurement (mass/volume)on 07-18-2022 Hemoglobin (Bld) [Mass/Vol] 8.1 g/dL 13.0-16.5 [facility] Work Phone: Blood lymphocytes/100 leukoc yteson 07-18-2022 Lymphocytes/100 WBC (Bld) 14.4 % 19-41 [facility] Work Phone: [phone] Blood monocytes/100 leukocyt eson 07-18-2022 Monocytes/100 WBC (Bld) 11.9 % 0-10 [facility] Work Phone: Blood platelet mean volumeon 07-18-2022 Platelet mean volume (Bld) [Entitic vol] 9.6 fL 6.2-12.0 [facility] Work Phone: Determination of erythrocyte mean corpuscular volume (MCV)on 07-18-2022 MCV (RBC) [Entitic vol] 95.8 fL 80-94 [facility] Work Phone: Hematocrit Auto (Bld) [Volum e fraction]on 07-18-2022 Hematocrit (Bld) [Volume fraction] 24.8 % 40-54 [facility] Work Phone: INR in Blood by Coagulation assayon 07-18-2022 INR Coag (Bld) [Relative time] 3.4 {INR} [facility] Work Phone: Laboratory - Chemistry and C hemistry - challengeon 07-18-2022 ALP [Catalytic activity/Vol] 275 U/L 45-117 [facility] Work Phone: ALT [Catalytic activity/Vol] 26 U/L 16-61 [facility] Work Phone: CO2 [Moles/Vol] 29.0 mmol/L 21.0-32.0 [facility] Work Phone: Globulin (S) [Mass/Vol] 3.1 g/dL 2.2-4.2 [facility] Work Phone: Urea nitrogen/Creatinine [Mass ratio] 7.8 mg/mg 10-20 [facility] Work Phone: Laboratory - Coagulationon 0 07-18-2022 PT Coag (PPP) [Time] 34.4 s 11.7-14.9 [facility] Laboratory - Hematology and Cell countson 07-18-2022 Erythrocyte distribution width (RBC) [Entitic vol] 57.6 fL 35.1-43.9 [facility] Work Phone: Erythrocyte distribution width (RBC) [Ratio] 16.8 % 11.6-14.6 [facility] Work Phone: Immature granulocytes/100 WBC (Bld) 0.400 % 0.0-0.9 [facility] Work Phone: Comment on above: IG% - Immature Granu locytes (promyelocytes, myelocytes and metamyelocytes) > 1% indicates that a LEFT SHIFT is Present. MCH (RBC) [Entitic mass] 31.3 pg 27.0-32.0 [facility] Work Phone: Nucleated RBC/100 WBC (Bld) [Ratio] 0 % 0-5 [facility] Work Phone: MCHC Auto (RBC) [Mass/Vol]on 07-18-2022 MCHC (RBC) [Mass/Vol] 32.7 g/dL 32-36 [facility] Work Phone: No Panel Informationon 07-18 Estimated Creatinine Clearance Calc 15.89 ml/min [facility] Work Phone: Estimated GFR (MDRD) Amer 20 mL/min >60 [facility] Work Phone: Comment on above: GFR Calc Estimated GFR (MDRD) Non-Af Amer 16 mL/min >60 [facility] Work Phone: Comment on above: Non- GFR Calc Platelets bldon 07-18-2022 Platelets (Bld) [#/Vol] 133 10*3/uL 150-450 [facility] Work Phone: Serum or plasma albumin khalif urement (mass/volume)on 07-18-2022 Albumin [Mass/Vol] 2.6 g/dL 3.2-5.0 [facility] Work Phone: Serum or plasma albumin/glob ulin mass ratioon 07-18-2022 Albumin/Globulin [Mass ratio] 0.8 {ratio} 0.9-2.4 [facility] Work Phone: Serum or plasma calcium khalif urement (mass/volume)on 07-18-2022 Calcium [Mass/Vol] 7.4 mg/dL 8.5-10.1 [facility] Work Phone: Serum or plasma creatinine m easurement (mass/volume)on 07-18-2022 Creatinine [Mass/Vol] 3.87 mg/dL 0.70-1.30 [facility] Work Phone: Comment on above: The validity of the calculated GFR & GFRAA in patients over 70 years has not been determined. Clinical correlation is essential. Serum or plasma urea nitroge n measurement (mass/volume)on 07-18-2022 Urea nitrogen [Mass/Vol] 30 mg/dL 7-18 [facility] Work Phone: Thin prep Papanicolaou smear with manual screeningon 07-18-2022 Thin prep Papanicolaou smear with manual screening 39 U/L 15-37 [facility] Work Phone: Thin prep Papanicolaou smear with manual screening 9 5-15 [facility] Work Phone: Basophil percentageon 2021 Basophil percentage 6.0 mg/dL 2.5-4.9 [facility] Work Phone: Laboratory - Chemistry and C hemistry - challengeon 07-17-2022 Magnesium [Mass/Vol] 2.0 mg/dL 1.6-2.6 [facility] Work Phone: Absolute lymphocyte counton 07-15-2022 Lymphocytes Auto (Unsp spec) [#/Vol] 0.72 10*3/uL 0.83-4.51 [facility] Work Phone: Basophil percentageon 2021 Basophil percentage 0-5 SEEN /hpf 0-5 [facility] Work Phone: [phone] Ammonia (P) [Moles/Vol] 46.0 umol/L 11-32 [facility] Work Phone: Basophils/100 WBC (Bld) 0.2 % 0-1 [facility] Work Phone: Bilirubin [Mass/Vol] 0.70 mg/dL 0.20-1.00 [facility] Work Phone: Comment on above: For patients on eltr ombopag therapy, use of Dimension [place] TBIL is not recommended. Chloride [Moles/Vol] 99 mmol/L 98-107 [facility] Work Phone: Eosinophils/100 WBC (Bld) 1.5 % 0-5 [facility] Work Phone: Glucose [Mass/Vol] 95 mg/dL 74-106 [facility] Work Phone: Neutrophils (Bld) [#/Vol] 4.1 10*3/uL 2.0-7.7 [facility] Work Phone: Neutrophils/100 WBC (Bld) 75.5 % 47-70 [facility] Work Phone: [phone] Potassium [Moles/Vol] 4.2 mmol/L 3.5-5.1 [facility] Work Phone: Protein [Mass/Vol] 6.3 g/dL 6.4-8.2 [facility] Work Phone: [phone] Sodium [Moles/Vol] 138 mmol/L 136-145 [facility] Work Phone: WBC (Bld) [#/Vol] 5.4 10*3/uL 4.4-11.0 [facility] Work Phone: Bilirubin Test strip Ql (U)o n 07-15-2022 Bilirubin Ql (U) 1 mg/dL Negative [facility] Work Phone: Comment on above: COLOR OF URINE MAY A FFECT DIPSTICK RESULTS. Blood erythrocytes count (nu mber/volume)on 07-15-2022 RBC (Bld) [#/Vol] 1.59 10*6/uL 4.6-6.2 [facility] Work Phone: Blood hemoglobin measurement (mass/volume)on 07-15-2022 Hemoglobin (Bld) [Mass/Vol] 5.4 g/dL 13.0-16.5 [facility] Work Phone: [phone] Blood lymphocytes/100 leukoc yteson 07-15-2022 Lymphocytes/100 WBC (Bld) 13.2 % 19-41 [facility] Work Phone: Blood monocytes/100 leukocyt eson 07-15-2022 Monocytes/100 WBC (Bld) 9.2 % 0-10 [facility] Work Phone: Blood platelet adequacy dete ction by light microscopyon 07-15-2022 Platelets LM Ql (Bld) 5.4 ADEQ [facility] Work Phone: Blood platelet mean volumeon 07-15-2022 Platelet mean volume (Bld) [Entitic vol] 9.4 fL 6.2-12.0 [facility] Work Phone: Determination of erythrocyte mean corpuscular volume (MCV)on 07-15-2022 MCV (RBC) [Entitic vol] 99.4 fL 80-94 [facility] Work Phone: Direct bilirubinon 2 Bilirubin.direct [Mass/Vol] 0.37 mg/dL 0.00-0.30 [facility] Work Phone: Hematocrit Auto (Bld) [Volum e fraction]on 07-15-2022 Hematocrit (Bld) [Volume fraction] 15.8 % 40-54 [facility] Work Phone: Hypochromatic red blood cell detectionon 07-15-2022 Hypochromia Ql (Bld) 2+ [facility] Work Phone: INR in Blood by Coagulation assayon 07-15-2022 INR Coag (Bld) [Relative time] 5.9 {INR} [facility] Work Phone: Ketones Test strip Ql (U)on 07-15-2022 Ketones Ql (U) Negative Negative [facility] Work Phone: Laboratory - Chemistry and C hemistry - challengeon 07-15-2022 ALP [Catalytic activity/Vol] 297 U/L 45-117 [facility] Work Phone: ALT [Catalytic activity/Vol] 27 U/L 16-61 [facility] Work Phone: CO2 [Moles/Vol] 35.0 mmol/L 21.0-32.0 [facility] Work Phone: Globulin (S) [Mass/Vol] 3.5 g/dL 2.2-4.2 [facility] Work Phone: Lipase [Catalytic activity/Vol] 277 U/L 73-393 [facility] Work Phone: Natriuretic peptide B (Bld) [Mass/Vol] 277.9 pg/mL 0-100 [facility] Work Phone: Urea nitrogen/Creatinine [Mass ratio] 11.8 mg/mg 10-20 [facility] Work Phone: Laboratory - Coagulationon 0 07-15-2022 PT Coag (PPP) [Time] 52.8 s 11.7-14.9 [facility] Work Phone: Laboratory - Hematology and Cell countson 07-15-2022 Erythrocyte distribution width (RBC) [Entitic vol] 59.7 fL 35.1-43.9 [facility] Work Phone: Erythrocyte distribution width (RBC) [Ratio] 16.9 % 11.6-14.6 [facility] Work Phone: Immature granulocytes/100 WBC (Bld) 0.400 % 0.0-0.9 [facility] Work Phone: Comment on above: IG% - Immature Granu locytes (promyelocytes, myelocytes and metamyelocytes) > 1% indicates that a LEFT SHIFT is Present. MCH (RBC) [Entitic mass] 34.0 pg 27.0-32.0 [facility] Work Phone: Nucleated RBC/100 WBC (Bld) [Ratio] 0 % 0-5 [facility] Work Phone: MCHC Auto (RBC) [Mass/Vol]on 07-15-2022 MCHC (RBC) [Mass/Vol] 34.2 g/dL 32-36 [facility] Work Phone: Mucus LM Ql (Urine sed)on Mucus Ql (Urine sed) 0 SEEN /hpf [facility] Work Phone: Nitrite Test strip Ql (U)on 07-15-2022 Nitrite Ql (U) Negative Negative [facility] Work Phone: No Panel Informationon 07-15 Estimated Creatinine Clearance Calc 20.10 ml/min [facility] Work Phone: Estimated GFR (MDRD) Amer 26 mL/min >60 [facility] Work Phone: Comment on above: GFR Calc Estimated GFR (MDRD) Non-Af Amer 21 mL/min >60 [facility] Work Phone: Comment on above: Non- GFR Calc Troponin I High Sensitivity 59 pg/mL 3.0-78.0 [facility] Work Phone: Comment on above: Please Note: New Nichole t Units and Gender Specific Reference Ranges. For more information see Policy Stat Procedure [place] High Sensitivity Troponin (TNIH) and attachments. Platelets bldon 07-15-2022 Platelets (Bld) [#/Vol] 125 10*3/uL 150-450 [facility] Work Phone: Protein Test strip Ql (U)on 07-15-2022 Protein Ql (U) 30 mg/dl Negative [facility] Work Phone: Review by pathologiston 06-20 Pathologist review [place] (Unsp spec) [Interp] Flor barber [facility] Work Phone: Pathologist review [place] (Unsp spec) [Interp] Reviewed [facility] Work Phone: Comment on above: Previous reported re sult: Flor barber Edited by: RGOOD on 07/17/22:1533Severe Microcytic anemia.Mild Thrombocytopenia.Clinical correlation necessary.Jose Frank M.D. 07/17/22 AMENDED REPORT 07/17/22 1533 PATH REV previously reported as: Flor barber Serum or plasma albumin khalif urement (mass/volume)on 07-15-2022 Albumin [Mass/Vol] 2.8 g/dL 3.2-5.0 [facility] Work Phone: Serum or plasma calcium khalif urement (mass/volume)on 07-15-2022 Calcium [Mass/Vol] 8.5 mg/dL 8.5-10.1 [facility] Work Phone: Serum or plasma creatinine m easurement (mass/volume)on 07-15-2022 Creatinine [Mass/Vol] 3.06 mg/dL 0.70-1.30 [facility] Work Phone: Comment on above: The validity of the calculated GFR & GFRAA in patients over 70 years has not been determined. Clinical correlation is essential. Serum or plasma urea nitroge n measurement (mass/volume)on 07-15-2022 Urea nitrogen [Mass/Vol] 36 mg/dL 7-18 [facility] Work Phone: Squamous epithelial cells de tection in urine sediment by light microscopyon 07-15-2022 Epithelial cells.squamous LM Ql (Urine sed) 0 SEEN /hpf 0-5 [facility] Work Phone: Thin prep Papanicolaou smear with manual screeningon 07-15-2022 Thin prep Papanicolaou smear with manual screening 32 U/L 15-37 [facility] Work Phone: Thin prep Papanicolaou smear with manual screening 4 5-15 [facility] Work Phone: Urine blood detectionon 06-20 RBC Ql (U) Negative Negative [facility] Work Phone: RBC Ql (U) 0 SEEN /hpf 0-5 [facility] Work Phone: Urine clarityon 07-15-2022 Clarity (U) Clear Clear [facility] Work Phone: Urine color determinationon 07-15-2022 Color (U) Yellow Yellow [facility] Work Phone: Urine glucose detectionon Glucose Ql (U) Normal mg/dl Normal [facility] Work Phone: Urine leukocyte esterase det ection by dipstickon 07-15-2022 Leukocyte esterase Test strip Ql (U) 25 /ul Negative [facility] Work Phone: Urine pHon 07-15-2022 pH (U) 8.0 [pH] 5.0 - 8.0 [facility] Work Phone: Urine sediment bacteria coun t by microscopy (number/high power field)on 07-15-2022 Bacteria LM.HPF (Urine sed) [#/Area] 1 /[HPF] None Seen [facility] Work Phone: Urine specific gravity measu rementon 07-15-2022 Specific gravity (U) [Rel density] 1.010 1.002-1.030 [facility] Work Phone: [phone] Urobilinogen Auto test strip Ql (U)on 07-15-2022 Urobilinogen Ql (U) Normal mg/dl Normal [facility] Work Phone: INR in Blood by Coagulation assayon 07-05-2022 INR Coag (Bld) [Relative time] 3.0 {INR} [facility] Work Phone: [phone] Laboratory - Coagulationon 0 07-05-2022 PT Coag (PPP) [Time] 30.7 s 11.7-14.9 [facility] Work Phone: INR in Blood by Coagulation assayon 06-14-2022 INR Coag (Bld) [Relative time] 1.7 {INR} [facility] Work Phone: [phone] Laboratory - Coagulationon 0 06-14-2022 PT Coag (PPP) [Time] 19.9 s 11.7-14.9 [facility] Work Phone: Absolute lymphocyte counton 06-06-2022 Lymphocytes Auto (Unsp spec) [#/Vol] 1.06 10*3/uL 0.83-4.51 [facility] Work Phone: Basophil percentageon 2021 Basophils/100 WBC (Bld) 0.9 % 0-1 [facility] Work Phone: Bilirubin [Mass/Vol] 1.40 mg/dL 0.20-1.00 [facility] Work Phone: Comment on above: For patients on eltr ombopag therapy, use of Dimension [place] TBIL is not recommended. Chloride [Moles/Vol] 99 mmol/L 98-107 [facility] Work Phone: Eosinophils/100 WBC (Bld) 5.5 % 0-5 [facility] Work Phone: Glucose [Mass/Vol] 132 mg/dL 74-106 [facility] Work Phone: Comment on above: Fasting Glucose resu lt greater than or equal to 126 mg/dL suggests DIABETES MELLITUS per A.D.A. criteria. Neutrophils (Bld) [#/Vol] 3.8 10*3/uL 2.0-7.7 [facility] Work Phone: Neutrophils/100 WBC (Bld) 64.1 % 47-70 [facility] Work Phone: [phone] Potassium [Moles/Vol] 4.2 mmol/L 3.5-5.1 [facility] Work Phone: Protein [Mass/Vol] 8.9 g/dL 6.4-8.2 [facility] Work Phone: Sodium [Moles/Vol] 139 mmol/L 136-145 [facility] Work Phone: [phone] WBC (Bld) [#/Vol] 5.9 10*3/uL 4.4-11.0 [facility] Work Phone: Blood erythrocytes count (nu mber/volume)on 06-06-2022 RBC (Bld) [#/Vol] 3.86 10*6/uL 4.6-6.2 [facility] Work Phone: Blood hemoglobin measurement (mass/volume)on 06-06-2022 Hemoglobin (Bld) [Mass/Vol] 12.4 g/dL 13.0-16.5 [facility] Work Phone: Blood lymphocytes/100 leukoc yteson 06-06-2022 Lymphocytes/100 WBC (Bld) 18.1 % 19-41 [facility] Work Phone: Blood monocytes/100 leukocyt eson 06-06-2022 Monocytes/100 WBC (Bld) 11.2 % 0-10 [facility] Work Phone: Blood platelet mean volumeon 06-06-2022 Platelet mean volume (Bld) [Entitic vol] 9.2 fL 6.2-12.0 [facility] Work Phone: Determination of erythrocyte mean corpuscular volume (MCV)on 06-06-2022 MCV (RBC) [Entitic vol] 98.4 fL 80-94 [facility] Work Phone: Hematocrit Auto (Bld) [Volum e fraction]on 06-06-2022 Hematocrit (Bld) [Volume fraction] 38.0 % 40-54 [facility] Work Phone: Iron measurement (mass/mass) Ordered By: Karthikeyan Turner on 06-06-2022 Iron (Unsp spec) [Mass/Mass] 143 ug/dL 65-175 [facility] Laboratory - Chemistry and C hemistry - challengeon 06-06-2022 ALP [Catalytic activity/Vol] 566 U/L 45-117 [facility] Work Phone: ALT [Catalytic activity/Vol] 56 U/L 16-61 [facility] Work Phone: CO2 [Moles/Vol] 33.0 mmol/L 21.0-32.0 [facility] Work Phone: Globulin (S) [Mass/Vol] 5.1 g/dL 2.2-4.2 [facility] Work Phone: Urea nitrogen/Creatinine [Mass ratio] 8.7 mg/mg 10-20 [facility] Work Phone: Laboratory - Chemistry and C hemistry - challengeOrdered By: Karthikeyan Turner on 06-06-2022 Cobalamin (Vitamin B12) [Mass/Vol] 1049 pg/mL 211-911 [facility] Laboratory - Hematology and Cell countson 06-06-2022 Erythrocyte distribution width (RBC) [Entitic vol] 50.9 fL 35.1-43.9 [facility] Work Phone: Erythrocyte distribution width (RBC) [Ratio] 14.0 % 11.6-14.6 [facility] Work Phone: Immature granulocytes/100 WBC (Bld) 0.200 % 0.0-0.9 [facility] Work Phone: Comment on above: IG% - Immature Granu locytes (promyelocytes, myelocytes and metamyelocytes) > 1% indicates that a LEFT SHIFT is Present. MCH (RBC) [Entitic mass] 32.1 pg 27.0-32.0 [facility] Work Phone: Nucleated RBC/100 WBC (Bld) [Ratio] 0 % 0-5 [facility] Work Phone: MCHC Auto (RBC) [Mass/Vol]on 06-06-2022 MCHC (RBC) [Mass/Vol] 32.6 g/dL 32-36 [facility] Work Phone: No Panel Informationon 06-06 Estimated Creatinine Clearance Calc 19.91 ml/min [facility] Work Phone: Estimated GFR (MDRD) Amer 26 mL/min >60 [facility] Work Phone: Comment on above: GFR Calc Estimated GFR (MDRD) Non-Af Amer 21 mL/min >60 [facility] Work Phone: Comment on above: Non- GFR Calc No Panel InformationOrdered By: Karthikeyan Turner on 06-06-2022 Total Iron Binding Capacity 297 ug/dL 250-450 [facility] 1049 pg/mL High 211-911 [facility] 297 ug/dL 250-450 [facility] Platelets bldon 06-06-2022 Platelets (Bld) [#/Vol] 133 10*3/uL 150-450 [facility] Work Phone: Serum or plasma albumin khalif urement (mass/volume)on 06-06-2022 Albumin [Mass/Vol] 3.8 g/dL 3.2-5.0 [facility] Work Phone: Serum or plasma albumin/glob ulin mass ratioon 06-06-2022 Albumin/Globulin [Mass ratio] 0.7 {ratio} 0.9-2.4 [facility] Work Phone: Serum or plasma calcium khalif urement (mass/volume)on 06-06-2022 Calcium [Mass/Vol] 9.8 mg/dL 8.5-10.1 [facility] Work Phone: Serum or plasma creatinine m easurement (mass/volume)on 06-06-2022 Creatinine [Mass/Vol] 3.09 mg/dL 0.70-1.30 [facility] Work Phone: Comment on above: The validity of the calculated GFR & GFRAA in patients over 70 years has not been determined. Clinical correlation is essential. Serum or plasma ferritin vivienne surement (mass/volume)Ordered By: Karthikeyan Turner on 06-06-2022 Ferritin [Mass/Vol] 829 ng/mL High 26-388 [facility] Serum or plasma folate measu rement (mass/volume)Ordered By: Karthikeyan Turner on 06-06-2022 Folate [Mass/Vol] 54.20 ng/mL 3.1-55.4 [facility] Serum or plasma iron saturat ion measurement (mass fraction)Ordered By: Karthikeyan Turner on 06-06-2022 Iron saturation [Mass fraction] 48.1 % 15.0-55.0 [facility] Serum or plasma urea nitroge n measurement (mass/volume)on 06-06-2022 Urea nitrogen [Mass/Vol] 27 mg/dL 7-18 [facility] Work Phone: Thin prep Papanicolaou smear with manual screeningon 06-06-2022 Thin prep Papanicolaou smear with manual screening 71 U/L 15-37 [facility] Work Phone: Thin prep Papanicolaou smear with manual screening 7 5-15 [facility] Work Phone: Thin prep Papanicolaou smear with manual screening 537 U/L 87-241 [facility] Work Phone: INR in Blood by Coagulation assayon 05-17-2022 INR Coag (Bld) [Relative time] 2.6 {INR} [facility] Work Phone: Laboratory - Coagulationon 0 05-17-2022 PT Coag (PPP) [Time] 27.7 s 11.7-14.[address] [facility] Work Phone: Albumin Elph [Mass/Vol]on Albumin [Mass/Vol] 3.6 g/dL 2.9-4.4 [place] [facility] Work Phone: Basophil percentageon 2021 Ammonia (P) [Moles/Vol] 37.0 umol/L 11-32 [facility] Work Phone: Basophil percentage Comment: . [facility] Work Phone: Comment on above: Presence of monoclon al protein is unclear at this time. Suggestrepeat in 3 to 6 months if clinically indicated.Performed at: [place] [id number] Director: Zen Joshi PhD, Phone: [phone] Interpretation of serum or p lasma protein pattern by immunofixation (narrative resulton 04-26-2022 Protein Fractions Immunofixation [place] [Interp] See comment [facility] Work Phone: Comment on above: NOT OBSERVED No Panel Informationon 04-26 Addendum Document Comment . [facility] Work Phone: Comment on above: Protein electrophore sis scan will follow via computer,mail, or curtain fitter delivery. Free Lambda Light Chains, Quant 98.8 mg/L 5.7-26.3 [facility] Work Phone: Serum dxioi-6-ruvmuldw measu rement by electrophoresison 04-26-2022 Alpha 1 globulin Elph [Mass/Vol] 0.4 g/dL 0.0-0.4 [facility] Work Phone: Alpha 1 globulin Elph [Mass/Vol] 0.6 g/dL 0.4-1.0 [facility] Work Phone: Serum globulin measurement ( mass/volume)on 04-26-2022 Globulin (S) [Mass/Vol] 3.5 g/dL 2.2-3.9 [facility] Work Phone: Serum immunoglobulin kappa l ight chains/immunoglobulin lambda light chains mass ratioon 04-26-2022 Immunoglobulin light chains.kappa/Immunoglob ulin light chains.lambda (S) [Mass ratio] 1.89 0.26-1.65 [facility] Work Phone: Serum or plasma IgA measurem ent (mass/volume)on 04-26-2022 IgA [Mass/Vol] 106 mg/dL 61-437 [facility] Work Phone: Serum or plasma IgG measurem ent (mass/volume)on 04-26-2022 IgG [Mass/Vol] 1296 mg/dL 603-1613 [facility] Work Phone: Serum or plasma IgM measurem ent (mass/volume)on 04-26-2022 IgM [Mass/Vol] 423 mg/dL 15-143 [facility] Work Phone: Serum or plasma beta globuli n measurement by electrophoresis (mass/volume)on 04-26-2022 Beta globulin Elph [Mass/Vol] 0.9 g/dL 0.7-1.3 [facility] Work Phone: Serum or plasma gamma globul in measurement by electrophoresis (mass/volume)on 04-26-2022 Gamma globulin Elph [Mass/Vol] 1.6 g/dL 0.4-1.8 [facility] Work Phone: Serum or plasma immunoelectr ophoresis interpretation (nominal result)on 04-26-2022 Interpretation IEP [Interp] Comment . [facility] Work Phone: Comment on above: No monoclonality det ected. Serum or plasma immunoglobul in kappa light chains measurement (mass/volume)on 04-26-2022 Immunoglobulin light chains.kappa [Mass/Vol] 187.0 mg/L 3.3-19.4 [facility] Work Phone: [phone] Thin prep Papanicolaou smear with manual screeningon 04-26-2022 Thin prep Papanicolaou smear with manual screening 1.1 0.7-1.7 [facility] Work Phone: Total protein bloodon 2021 Protein [Mass/Vol] 7.1 g/dL 6.0-8.5 [facility] Work Phone: INR in Blood by Coagulation assayon 04-14-2022 INR Coag (Bld) [Relative time] 2.1 {INR} [facility] Work Phone: Laboratory - Coagulationon 0 04-14-2022 PT Coag (PPP) [Time] 23.1 s 11.7-14.9 [facility] Work Phone: [phone] INR in Blood by Coagulation assayon 04-07-2022 INR Coag (Bld) [Relative time] 3.3 {INR} [facility] Work Phone: Laboratory - Coagulationon 0 04-07-2022 PT Coag (PPP) [Time] 33.3 s 11.7-14.9 [facility] Work Phone: [phone] Absolute lymphocyte counton 04-06-2022 Lymphocytes Auto (Unsp spec) [#/Vol] 1.36 10*3/uL 0.83-4.51 [facility] Work Phone: Basophil percentageon 2021 Basophils/100 WBC (Bld) 0.5 % 0-1 [facility] Work Phone: Chloride [Moles/Vol] 97 mmol/L 98-107 [facility] Work Phone: Eosinophils/100 WBC (Bld) 5.6 % 0-5 [facility] Work Phone: Glucose [Mass/Vol] 87 mg/dL 74-106 [facility] Work Phone: Neutrophils (Bld) [#/Vol] 3.8 10*3/uL 2.0-7.7 [facility] Work Phone: Neutrophils/100 WBC (Bld) 60.1 % 47-70 [facility] Work Phone: Potassium [Moles/Vol] 4.5 mmol/L 3.5-5.1 [place] [facility] Work Phone: Sodium [Moles/Vol] 132 mmol/L 136-145 [facility] Work Phone: WBC (Bld) [#/Vol] 6.3 10*3/uL 4.4-11.0 [facility] Work Phone: Blood erythrocytes count (nu mber/volume)on 04-06-2022 RBC (Bld) [#/Vol] 2.59 10*6/uL 4.6-6.2 [facility] Work Phone: Blood hemoglobin measurement (mass/volume)on 04-06-2022 Hemoglobin (Bld) [Mass/Vol] 8.3 g/dL 13.0-16.5 [facility] Work Phone: Blood lymphocytes/100 leukoc yteson 04-06-2022 Lymphocytes/100 WBC (Bld) 21.8 % 19-41 [facility] Work Phone: Blood monocytes/100 leukocyt eson 04-06-2022 Monocytes/100 WBC (Bld) 11.5 % 0-10 [facility] Work Phone: Blood platelet mean volumeon 04-06-2022 Platelet mean volume (Bld) [Entitic vol] 9.7 fL 6.2-12.0 [facility] Work Phone: [phone] Determination of erythrocyte mean corpuscular volume (MCV)on 04-06-2022 MCV (RBC) [Entitic vol] 94.6 fL 80-94 [facility] Work Phone: Hematocrit Auto (Bld) [Volum e fraction]on 04-06-2022 Hematocrit (Bld) [Volume fraction] 24.5 % 40-54 [facility] Work Phone: INR in Blood by Coagulation assayon 04-06-2022 INR Coag (Bld) [Relative time] 3.7 {INR} [facility] Work Phone: Laboratory - Chemistry and C hemistry - challengeon 04-06-2022 CO2 [Moles/Vol] 25.0 mmol/L 21.0-32.0 [facility] Work Phone: Urea nitrogen/Creatinine [Mass ratio] 10.1 mg/mg 10-20 [facility] Work Phone: Laboratory - Coagulationon 0 04-06-2022 PT Coag (PPP) [Time] 36.5 s 11.7-14.9 [facility] Work Phone: Laboratory - Hematology and Cell countson 04-06-2022 Erythrocyte distribution width (RBC) [Entitic vol] 49.9 fL 35.1-43.9 [facility] Work Phone: Erythrocyte distribution width (RBC) [Ratio] 14.6 % 11.6-14.6 [facility] Work Phone: Immature granulocytes/100 WBC (Bld) 0.500 % 0.0-0.9 [facility] Work Phone: Comment on above: IG% - Immature Granu locytes (promyelocytes, myelocytes and metamyelocytes) > 1% indicates that a LEFT SHIFT is Present. MCH (RBC) [Entitic mass] 32.0 pg 27.0-32.0 [facility] Work Phone: Nucleated RBC/100 WBC (Bld) [Ratio] 0 % 0-5 [facility] Work Phone: MCHC Auto (RBC) [Mass/Vol]on 04-06-2022 MCHC (RBC) [Mass/Vol] 33.9 g/dL 32-36 [facility] Work Phone: No Panel Informationon 04-06 Estimated Creatinine Clearance Calc 12.66 ml/min [facility] Work Phone: Estimated GFR (MDRD) Amer 15 mL/min >60 [facility] Work Phone: Comment on above: GFR Calc Estimated GFR (MDRD) Non-Af Amer 13 mL/min >60 [facility] Work Phone: Comment on above: Non- GFR Calc Platelets bldon 04-06-2022 Platelets (Bld) [#/Vol] 131 10*3/uL 150-450 [facility] Work Phone: Serum or plasma calcium khalif urement (mass/volume)on 04-06-2022 Calcium [Mass/Vol] 9.5 mg/dL 8.5-10.1 [facility] r [facility] Work Phone: Serum or plasma creatinine m easurement (mass/volume)on 04-06-2022 Creatinine [Mass/Vol] 4.86 mg/dL 0.70-1.30 [facility] Work Phone: Comment on above: The validity of the calculated GFR & GFRAA in patients over 70 years has not been determined. Clinical correlation is essential. Serum or plasma urea nitroge n measurement (mass/volume)on 04-06-2022 Urea nitrogen [Mass/Vol] 49 mg/dL 7-18 [facility] Work Phone: Thin prep Papanicolaou smear with manual screeningon 04-06-2022 Thin prep Papanicolaou smear with manual screening 10 5-15 [facility] Work Phone: Basophil percentageon 2021 Basophil percentage 4.2 mg/dL 2.5-4.9 [facility] Work Phone: Laboratory - Chemistry and C hemistry - challengeon 04-05-2022 Magnesium [Mass/Vol] 1.8 mg/dL 1.6-2.6 [facility] Work Phone: Lower GI hemoglobin IA Ql (S tl)on 04-04-2022 Stool Occult Blood (SANDRA) Positive [facility] Work Phone: INR in Blood by Coagulation assayon 04-03-2022 INR Coag (Bld) [Relative time] 4.3 {INR} [facility] Work Phone: Comment on above: CRITICAL VALUE VERIF IED. CALLED TO GKCLJPF05/16/22 Isac Herman.RESULTS READ BACK BY SAME . Laboratory - Coagulationon 0 04-03-2022 PT Coag (PPP) [Time] 41.2 s 11.7-14.9 [facility] Work Phone: INR in Blood by Coagulation assayon 03-03-2022 INR Coag (Bld) [Relative time] 3.1 {INR} [facility] Work Phone: Laboratory - Coagulationon 0 03-03-2022 PT Coag (PPP) [Time] 31.8 s 11.7-14.9 [facility] Work Phone: INR in Blood by Coagulation assayon 02-17-2022 INR Coag (Bld) [Relative time] 2.8 {INR} [facility] Work Phone: Laboratory - Coagulationon 0 02-17-2022 PT Coag (PPP) [Time] 28.7 s 11.7-14.9 [facility] Work Phone: INR in Blood by Coagulation assayon 02-10-2022 INR Coag (Bld) [Relative time] 2.6 {INR} [facility] Work Phone: Laboratory - Coagulationon 0 02-10-2022 PT Coag (PPP) [Time] 27.1 s 11.7-14.9 [facility] Work Phone: Basophil percentageon 2021 Ammonia (P) [Moles/Vol] 50.0 umol/L [facility] Work Phone: INR in Blood by Coagulation assayon 01-16-2022 INR Coag (Bld) [Relative time] 2.0 {INR} [facility] Work Phone: Laboratory - Coagulationon 0 01-16-2022 PT Coag (PPP) [Time] 22.0 s 11.7-14.9 [facility] Work Phone: No Panel Informationon 01-16 Levetiracetam (Keppra) Level 31.9 ug/mL [facility] Work Phone: Comment on above: Performed at: [address] [id number] Director: Kenny Akbar MD, Phone: [phone] Absolute lymphocyte counton 01-12-2022 Lymphocytes Auto (Unsp spec) [#/Vol] 1.10 10*3/uL 0.83-4.51 [facility] Work Phone: Basophil percentageon 2021 Basophils/100 WBC (Bld) 0.4 % 0-1 [facility] Work Phone: Bilirubin [Mass/Vol] 2.10 mg/dL 0.20-1.00 [facility] Work Phone: Comment on above: For patients on eltr ombopag therapy, use of Dimension [place] TBIL is not recommended. Chloride [Moles/Vol] 109 mmol/L 98-107 [facility] Work Phone: Eosinophils/100 WBC (Bld) 4.0 % 0-5 [facility] Work Phone: [phone] Glucose [Mass/Vol] 98 mg/dL 74-106 [facility] Work Phone: Neutrophils (Bld) [#/Vol] 3.5 10*3/uL 2.0-7.7 [facility] Work Phone: Neutrophils/100 WBC (Bld) 63.4 % 47-70 [facility] Work Phone: Potassium [Moles/Vol] 3.5 mmol/L 3.5-5.1 [facility] Work Phone: Protein [Mass/Vol] 6.4 g/dL 6.4-8.2 [facility] Work Phone: Sodium [Moles/Vol] 143 mmol/L 136-145 [facility] Work Phone: WBC (Bld) [#/Vol] 5.5 10*3/uL 4.4-11.0 [facility] Work Phone: Blood erythrocytes count (nu mber/volume)on 01-12-2022 RBC (Bld) [#/Vol] 3.76 10*6/uL 4.6-6.2 [facility] Work Phone: Blood hemoglobin measurement (mass/volume)on 01-12-2022 Hemoglobin (Bld) [Mass/Vol] 12.2 g/dL 13.0-16.5 [facility] Work Phone: Blood lymphocytes/100 leukoc yteson 01-12-2022 Lymphocytes/100 WBC (Bld) 20.1 % 19-41 [facility] Work Phone: Blood monocytes/100 leukocyt eson 01-12-2022 Monocytes/100 WBC (Bld) 11.9 % 0-10 [facility] Work Phone: Blood platelet adequacy dete ction by light microscopyon 01-12-2022 Platelets LM Ql (Bld) MOD DEC ADEQ [facility] Work Phone: Blood platelet mean volumeon 01-12-2022 Platelet mean volume (Bld) [Entitic vol] 11.8 fL 6.2-12.0 [facility] Work Phone: Determination of erythrocyte mean corpuscular volume (MCV)on 01-12-2022 MCV (RBC) [Entitic vol] 99.5 fL 80-94 [facility] Work Phone: Hematocrit Auto (Bld) [Volum e fraction]on 01-12-2022 Hematocrit (Bld) [Volume fraction] 37.4 % 40-54 [facility] Work Phone: INR in Blood by Coagulation assayon 01-12-2022 INR Coag (Bld) [Relative time] 2.9 {INR} [facility] Work Phone: Laboratory - Chemistry and C hemistry - challengeon 01-12-2022 ALP [Catalytic activity/Vol] 239 U/L 45-117 [facility] Work Phone: ALT [Catalytic activity/Vol] 29 U/L 16-61 [facility] Work Phone: CO2 [Moles/Vol] 27.0 mmol/L 21.0-32.0 [facility] Work Phone: Globulin (S) [Mass/Vol] 3.7 g/dL 2.2-4.2 [facility] Work Phone: Urea nitrogen/Creatinine [Mass ratio] 14.0 mg/mg 10-20 [facility] Work Phone: Laboratory - Coagulationon 0 01-12-2022 PT Coag (PPP) [Time] 29.2 s 11.7-14.9 [facility]: Laboratory - Hematology and Cell countson 01-12-2022 Anisocytosis [facility]l (Bld) 2[facility] Work [facility]: Erythrocyte distribution width (RBC) [Entitic vol] 74.4 fL 35.1-43.9 [facility] Work Phone: Erythrocyte distribution width (RBC) [Ratio] 20.3 % 11.6-14.6 [facility] Work Phone: Immature granulocytes/100 WBC (Bld) 0.200 % 0.0-0.9 [facility] Work Phone: Comment on above: IG% - Immature Granu locytes (promyelocytes, myelocytes and metamyelocytes) > 1% indicates that a LEFT SHIFT is Present. MCH (RBC) [Entitic mass] 32.4 pg 27.0-32.0 [facility] Work Phone: Nucleated RBC/100 WBC (Bld) [Ratio] 0 % 0-5 [facility] Work Phone: MCHC Auto (RBC) [Mass/Vol]on 01-12-2022 MCHC (RBC) [Mass/Vol] 32.6 g/dL 32-36 [facility] Work Phone: No Panel Informationon 01-12 Estimated Creatinine Clearance Calc 27.35 ml/min [facility] Work Phone: Estimated GFR (MDRD) Amer 33 mL/min >60 [facility] Work Phone: Comment on above: GFR Calc Estimated GFR (MDRD) Non-Af Amer 27 mL/min >60 [facility] Work Phone: Comment on above: Non- GFR Calc Platelets bldon 01-12-2022 Platelets (Bld) [#/Vol] 87 10*3/uL 150-450 [facility] Work Phone: Serum or plasma albumin khalif urement (mass/volume)on 01-12-2022 Albumin [Mass/Vol] 2.7 g/dL 3.2-5.0 [facility] Work Phone: Serum or plasma albumin/glob ulin mass ratioon 01-12-2022 Albumin/Globulin [Mass ratio] 0.7 {ratio} 0.9-2.4 [facility] Work Phone: Serum or plasma calcium khalif urement (mass/volume)on 01-12-2022 Calcium [Mass/Vol] 8.8 mg/dL 8.5-10.1 [facility] Work Phone: Serum or plasma creatinine m easurement (mass/volume)on 01-12-2022 Creatinine [Mass/Vol] 2.50 mg/dL 0.70-1.30 [facility] Work Phone: Comment on above: The validity of the calculated GFR & GFRAA in patients over 70 years has not been determined. Clinical correlation is essential. Serum or plasma urea nitroge n measurement (mass/volume)on 01-12-2022 Urea nitrogen [Mass/Vol] 35 mg/dL 7-18 [facility] Work Phone: Thin prep Papanicolaou smear with manual screeningon 01-12-2022 Thin prep Papanicolaou smear with manual screening 46 U/L 15-37 [facility] Work Phone: Thin prep Papanicolaou smear with manual screening 7 5-15 [facility] Work Phone: Activated partial thrombopla stin time (aPTT) in platelet poor plasma by coagulation aon 01-11-2022 aPTT Coag (PPP) [Time] 218.1 s 24.1-36.2 [facility] Work Phone: Comment on above: CRITICAL VALUE VERIF IED. CALLED TO Eileen FINNEY RN ICU01/11/22 [id number] Robert Odonnell.RESULTS READ BACK BY SAME. Basophil percentageon 2021 Basophil percentage 0-5 SEEN /hpf [facility] Work Phone: Ammonia (P) [Moles/Vol] 46.0 umol/L 11-32 [facility] Work Phone: Bilirubin Test strip Ql (U)o n 01-11-2022 Bilirubin Ql (U) 1 mg/dL Negative [facility] Work Phone: Comment on above: COLOR OF URINE MAY A FFECT DIPSTICK RESULTS. Ketones Test strip Ql (U)on 01-11-2022 Ketones Ql (U) Negative Negative [facility] Work Phone: Laboratory - Chemistry and C hemistry - challengeon 01-11-2022 Natriuretic peptide B (Bld) [Mass/Vol] 1573.3 pg/mL 0-100 [facility] Work Phone: Mucus LM Ql (Urine sed)on Mucus Ql (Urine sed) 0 SEEN /hpf [facility] Work Phone: Nitrite Test strip Ql (U)on 01-11-2022 Nitrite Ql (U) Negative Negative [facility] Work Phone: No Panel Informationon 01-11 Thyroid Stimulating Hormone (TSH) 1.42 uIU/mL 0.358-3.74 [facility] Work Phone: Streptococcus pneumoniae Antigen (M [facility] Work Phone: Protein Test strip Ql (U)on 01-11-2022 Protein Ql (U) 30 mg/dl Negative [facility] Work Phone: Serum procalcitonin measurem enton 01-11-2022 Procalcitonin [Mass/Vol] 0.83 ng/mL 0.00-0.09 [facility] Work Phone: Comment on above: A [...] LM Ql (Urine sed) 0-5 SEEN /hpf [facility] Work Phone: Urine blood detectionon 12-21 RBC Ql (U) 25 /ul Negative [facility] Work Phone: RBC Ql (U) 0-5 SEEN /hpf [facility] Work Phone: Urine clarityon 01-11-2022 Clarity (U) Clear Clear [facility] Work Phone: Urine color determinationon 01-11-2022 Color (U) Jaelyn Yellow [facility] Work Phone: Urine glucose detectionon Glucose Ql (U) Normal mg/dl Normal [facility] Work Phone: Urine leukocyte esterase det ection by dipstickon 01-11-2022 Leukocyte esterase Test strip Ql (U) 25 /ul Negative [facility] Work Phone: Urine pHon 01-11-2022 pH (U) 5.0 [pH] [facility] Work Phone: Urine sediment bacteria coun t by microscopy (number/high power field)on 01-11-2022 Bacteria LM.HPF (Urine sed) [#/Area] RARE /hpf None Seen [facility] Work Phone: Urine specific gravity measu rementon 01-11-2022 Specific gravity (U) [Rel density] 1.025 [facility] Work Phone: Urobilinogen Auto test strip Ql (U)on 01-11-2022 Urobilinogen Ql (U) Normal mg/dl Normal [facility] Work Phone: Basophil percentageon 2021 Lactate [Moles/Vol] 1.2 mmol/L 0.4-2.0 [facility] Work Phone: Basophil percentage 2.4 mg/dL 2.5-4.9 [facility] Work Phone: Blood poikilocytosis detecti on by light microscopyon 01-10-2022 Poikilocytosis LM Ql (Bld) 1+ [facility] Work Phone: Laboratory - Chemistry and C hemistry - challengeon 01-10-2022 Lipase [Catalytic activity/Vol] 109 U/L 73-393 [facility] Work Phone: Magnesium [Mass/Vol] 1.6 mg/dL 1.6-2.6 [facility] Work Phone: Comment on above: Slight Hemolysis, Re sult may be falsely increased. Laboratory - Microbiology an d Antimicrobial susceptibilityon 01-10-2022 Bacteria identified Cx Nom (Bld) No growth in 5 days. [facility] Work Phone: No Panel Informationon 01-10 Methicillin-Resist S.aureus DNA PCR Negative Negative [facility] Work Phone: SARS-CoV-2 Antigen (Rapid) [facility] Work Phone: Troponin I High Sensitivity 41 pg/mL 3.0-78.0 [facility] Work Phone: Comment on above: Please Note: New Nichole t Units and Gender Specific Reference Ranges. For more information see Policy Stat Procedure [place] High Sensitivity Troponin (TNIH) and attachments. Ovalocyte detectionon 2021 Ovalocytes LM Ql (Bld) 1+ [facility] Work Phone: No Panel Informationon 01-09 Free Lambda Light Chains, Quant 54.5 mg/L [facility] Work Phone: Vitamin D 25-Hydroxy 52.6 ng/mL [facility] Work Phone: Comment on above: Vitamin D 25(OH) Sta tus Range Deficiency <20 ng/mL (50nmol/L) Insufficiency 20 - 30 ng/mL (50 - 75 nmol/L) Sufficiency 30 - 100 ng/mL (75 - 250 nmol/L) Toxicity >100 ng/mL (>250 nmol/L) Whole Blood Vitamin B1 Level 166.3 nmol/L [facility] Work Phone: Comment on above: Performed at: [address] [id number] Director: Zen Joshi PhD, Phone: [phone] at: [address] [id number] Director: Kenny Akbar MD, Phone: [phone] Serum immunoglobulin kappa l ight chains/immunoglobulin lambda light chains mass ratioon 01-09-2022 Immunoglobulin light chains.kappa/Immunoglob ulin light chains.lambda (S) [Mass ratio] 1.85 [facility] Work Phone: Serum or plasma immunoglobul in kappa light chains measurement (mass/volume)on 01-09-2022 Immunoglobulin light chains.kappa [Mass/Vol] 100.9 mg/L [facility] [facility] Work [facility]: Basophil percentageon 2021 Potassium [Moles/Vol] 3.2 mmol/L 3.5-5.1 [facility] Work Phone: [phone] Absolute lymphocyte counton 12-20-2021 Lymphocytes Auto (Unsp spec) [#/Vol] 1.08 10*3/uL 0.83-4.51 [facility] Work Phone: Basophil percentageon 2021 Basophils/100 WBC (Bld) 0.7 % 0-1 [facility] Work Phone: Bilirubin [Mass/Vol] 2.50 mg/dL 0.20-1.00 [facility] Work Phone: Comment on above: For patients on eltr ombopag therapy, use of Dimension [place] TBIL is not recommended. Chloride [Moles/Vol] 99 mmol/L 98-107 [facility] Work Phone: Eosinophils/100 WBC (Bld) 4.7 % 0-5 [facility] Work Phone: [phone] Glucose [Mass/Vol] 83 mg/dL 74-106 [facility] Work Phone: [phone] Neutrophils (Bld) [#/Vol] 2.2 10*3/uL 2.0-7.7 [facility] Work Phone: [phone] Neutrophils/100 WBC (Bld) 54.0 % 47-70 [facility] Work Phone: Potassium [Moles/Vol] 2.8 mmol/L 3.5-5.1 [facility] Work Phone: Protein [Mass/Vol] 7.1 g/dL 6.4-8.2 [facility] Work Phone: Sodium [Moles/Vol] 136 mmol/L 136-145 [facility] Work Phone: [phone] WBC (Bld) [#/Vol] 4.0 10*3/uL 4.4-11.0 [facility] Work Phone: Blood erythrocytes count (nu mber/volume)on 12-20-2021 RBC (Bld) [#/Vol] 3.95 10*6/uL 4.6-6.2 [facility] Work [facility]: Blood hemoglobin measurement (mass/volume)on 12-20-2021 Hemoglobin (Bld) [Mass/Vol] 12.4 g/dL 13.0-16.5 [facility] Work Phone: Blood lymphocytes/100 leukoc yteson 12-20-2021 Lymphocytes/100 WBC (Bld) 26.9 % 19-41 [facility] Work Phone: Blood monocytes/100 leukocyt eson 12-20-2021 Monocytes/100 WBC (Bld) 13.2 % 0-10 [facility] Work Phone: Blood platelet mean volumeon 12-20-2021 Platelet mean volume (Bld) [Entitic vol] 10.9 fL 6.2-12.0 [facility] Work Phone: Determination of erythrocyte mean corpuscular volume (MCV)on 12-20-2021 MCV (RBC) [Entitic vol] 95.7 fL 80-94 [facility] Work Phone: Direct bilirubinon 2 Bilirubin.direct [Mass/Vol] 1.28 mg/dL 0.00-0.30 [facility] Work Phone: Hematocrit Auto (Bld) [Volum e fraction]on 12-20-2021 Hematocrit (Bld) [Volume fraction] 37.8 % 40-54 [facility] Work Phone: Iron measurement (mass/mass) on 12-20-2021 Iron (Unsp spec) [Mass/Mass] 95 ug/dL 65-175 [facility] Work Phone: Laboratory - Chemistry and C hemistry - challengeon 12-20-2021 ALP [Catalytic activity/Vol] 236 U/L 45-117 [facility] Work Phone: ALT [Catalytic activity/Vol] 23 U/L 16-61 [facility] Work Phone: CO2 [Moles/Vol] 33.0 mmol/L 21.0-32.0 [facility] Work Phone: Globulin (S) [Mass/Vol] 4.0 g/dL 2.2-4.2 [facility] Work Phone: Urea nitrogen/Creatinine [Mass ratio] 10.3 mg/mg 10-20 [facility] Work Phone: Laboratory - Hematology and Cell countson 12-20-2021 Erythrocyte distribution width (RBC) [Entitic vol] 62.1 fL 35.1-43.9 [facility] Work Phone: Erythrocyte distribution width (RBC) [Ratio] 18.7 % 11.6-14.6 [facility] Work Phone: Immature granulocytes/100 WBC (Bld) 0.500 % 0.0-0.9 [facility] Work Phone: Comment on above: IG% - Immature Granu locytes (promyelocytes, myelocytes and metamyelocytes) > 1% indicates that a LEFT SHIFT is Present. MCH (RBC) [Entitic mass] 31.4 pg 27.0-32.0 [facility] Work Phone: Nucleated RBC/100 WBC (Bld) [Ratio] 0 % 0-5 [facility] Work Phone: MCHC Auto (RBC) [Mass/Vol]on 12-20-2021 MCHC (RBC) [Mass/Vol] 32.8 g/dL 32-36 [facility] Work Phone: No Panel Informationon 12-20 Estimated GFR (MDRD) Amer 79 mL/min >60 [facility] Work Phone: Comment on above: GFR Calc Estimated GFR (MDRD) Non-Af Amer 66 mL/min >60 [facility] Work Phone: Comment on above: Non- GFR Calc Parathyroid Hormone (Intact) 93.7 pg/mL 18.4-80.1 [facility] Work Phone: Total Iron Binding Capacity 315 ug/dL 250-450 [facility] Work Phone: Platelets bldon 12-20-2021 Platelets (Bld) [#/Vol] 88 10*3/uL 150-450 [facility] Work Phone: Serum or plasma albumin khalif urement (mass/volume)on 12-20-2021 Albumin [Mass/Vol] 3.1 g/dL 3.2-5.0 [facility] Work Phone: Serum or plasma calcium khalif urement (mass/volume)on 12-20-2021 Calcium [Mass/Vol] 8.4 mg/dL 8.5-10.1 [facility] Work Phone: Serum or plasma creatinine m easurement (mass/volume)on 12-20-2021 Creatinine [Mass/Vol] 1.16 mg/dL 0.70-1.30 [facility] Work Phone: Comment on above: The validity of the calculated GFR & GFRAA in patients over 70 years has not been determined. Clinical correlation is essential. Serum or plasma iron saturat ion measurement (mass fraction)on 12-20-2021 Iron saturation [Mass fraction] 30.2 % 15.0-55.0 [facility] Work Phone: Serum or plasma urea nitroge n measurement (mass/volume)on 12-20-2021 Urea nitrogen [Mass/Vol] 12 mg/dL 7-18 [facility] Work Phone: Thin prep Papanicolaou smear with manual screeningon 12-20-2021 Thin prep Papanicolaou smear with manual screening 44 U/L 15-37 [facility] Work Phone: Thin prep Papanicolaou smear with manual screening 4 5-15 [facility] Work Phone: INR in Blood by Coagulation assayon 12-14-2021 INR Coag (Bld) [Relative time] 2.6 {INR} [facility] Work Phone: Laboratory - Coagulationon 0 12-14-2021 PT Coag (PPP) [Time] 27.0 s 11.7-14.9 [facility] Work Phone: Basophil percentageon 2021 Basophil percentage 4.0 mg/dL 2.5-4.9 [facility] Work Phone: Chloride [Moles/Vol] 113 mmol/L 98-107 [facility] Work Phone: Glucose [Mass/Vol] 122 mg/dL 74-106 [facility] Work Phone: Comment on above: Fasting Glucose resu lt from 100 to 125 mg/dL suggests IMPAIRED HOMEOSTASIS per A.D.A. criteria.Please note revised GLUCOSE reference range effective 2017. Potassium [Moles/Vol] 3.5 mmol/L 3.5-5.1 [facility] Work Phone: Sodium [Moles/Vol] 144 mmol/L 136-145 [facility] Work Phone: Laboratory - Chemistry and C hemistry - challengeon 11-30-2021 CO2 [Moles/Vol] 21.0 mmol/L 21.0-32.0 [facility] Work Phone: Urea nitrogen/Creatinine [Mass ratio] 16.7 mg/mg 10-20 [facility] Work Phone: No Panel Informationon 11-30 Estimated GFR (MDRD) Amer 29 mL/min >60 [facility] Work Phone: Comment on above: GFR Calc Estimated GFR (MDRD) Non-Af Amer 24 mL/min >60 [facility] Work Phone: Comment on above: Non- GFR Calc Serum or plasma albumin khalif urement (mass/volume)on 11-30-2021 Albumin [Mass/Vol] 3.3 g/dL 3.2-5.0 [facility] Work Phone: Serum or plasma calcium khalif urement (mass/volume)on 11-30-2021 Calcium [Mass/Vol] 10.3 mg/dL 8.5-10.1 [facility] Work Phone: Serum or plasma creatinine m easurement (mass/volume)on 11-30-2021 Creatinine [Mass/Vol] 2.82 mg/dL 0.70-1.30 [facility] Work Phone: Comment on above: The validity of the calculated GFR & GFRAA in patients over 70 years has not been determined. Clinical correlation is essential. Serum or plasma urea nitroge n measurement (mass/volume)on 11-30-2021 Urea nitrogen [Mass/Vol] 47 mg/dL 7-18 [facility] Work Phone: Urine creatinine measurement (mass/volume)on 11-30-2021 Creatinine (U) [Mass/Vol] 197.00 mg/dL NO RANGE EST. [facility] Work Phone: Basophil percentageon 2021 Ammonia (P) [Moles/Vol] 53.0 umol/L 11-32 [facility] Work Phone: 24 hour urine protein measur ement (mass/time)on 11-28-2021 Protein (24H U) [Mass/Time] 318.8 mg/24HR 0-151 [facility] Work Phone: 24 hour urine protein measur ement (mass/volume)on 11-28-2021 Protein (24H U) [Mass/Vol] 85.0 mg/dL 0.0-11.8 [facility] Work Phone: Creatinine clearanceon 11-28 Creatinine renal clearance Unsp time (U+S/P) [Vol/Time] 19 ml/min 100-200 [facility] Work Phone: Laboratory - Specimen inform ationon 11-28-2021 Collection duration (U) 24.0 HOURS 24.0-24.0 [facility] Work Phone: No Panel Informationon 11-28 Timed Urine Volume 375 mL [facility] Work Phone: Basophil percentageon 2021 Chloride [Moles/Vol] 105 mmol/L 98-107 [facility] Work Phone: Glucose [Mass/Vol] 131 mg/dL 74-106 [facility] Work Phone: Comment on above: Fasting Glucose resu lt greater than or equal to 126 mg/dL suggests DIABETES MELLITUS per A.D.A. criteria.Please note revised GLUCOSE reference range effective 2017. Potassium [Moles/Vol] 3.6 mmol/L 3.5-5.1 [facility] Work Phone: Sodium [Moles/Vol] 139 mmol/L 136-145 [facility] Work Phone: Laboratory - Chemistry and C hemistry - challengeon 11-21-2021 CO2 [Moles/Vol] 25.0 mmol/L 21.0-32.0 [facility] Work Phone: Urea nitrogen/Creatinine [Mass ratio] 13.4 mg/mg 10-20 [facility] Work Phone: No Panel Informationon 11-21 Estimated GFR (MDRD) Amer 32 mL/min >60 [facility] Work Phone: Comment on above: GFR Calc Estimated GFR (MDRD) Non-Af Amer 27 mL/min >60 [facility] Work Phone: Comment on above: Non- GFR Calc Serum or plasma calcium khalif urement (mass/volume)on 11-21-2021 Calcium [Mass/Vol] 10.5 mg/dL 8.5-10.1 [facility] Work Phone: Serum or plasma creatinine m easurement (mass/volume)on 11-21-2021 Creatinine [Mass/Vol] 2.53 mg/dL 0.70-1.30 [facility] Work Phone: Comment on above: The validity of the calculated GFR & GFRAA in patients over 70 years has not been determined. Clinical correlation is essential. Serum or plasma urea nitroge n measurement (mass/volume)on 11-21-2021 Urea nitrogen [Mass/Vol] 34 mg/dL 7-18 [facility] Work Phone: Thin prep Papanicolaou smear with manual screeningon 11-21-2021 Thin prep Papanicolaou smear with manual screening 9 5-15 [facility] Work Phone: INR in Blood by Coagulation assayon 11-16-2021 INR Coag (Bld) [Relative time] 3.5 {INR} [facility] Work Phone: Laboratory - Coagulationon 1 PT Coag (PPP) [Time] 34.5 s 11.7-14.9 [facility] Work Phone: INR in Blood by Coagulation assayon 06-03-2021 INR Coag (Bld) [Relative time] 3.0 {INR} [facility] Laboratory - Coagulationon 0 06-03-2021 PT Coag (PPP) [Time] 30.4 s 11.7-14.9 [facility] Erythrocyte distribution wid th standard deviationon 12-31-2018 Erythrocyte distribution width (RBC) [Entitic vol] 52.8 fL High 35.1-43.9 [facility] Laboratory - Hematology and Cell countson 12-31-2018 Erythrocyte distribution width (RBC) [Ratio] 14.8 % 11.6-14.6 [facility] No Panel Informationon 12-31 14.8 % High 11.6-14.6 [facility] Total cell counton 9 Cells counted Molgen (Bld/Tiss) [#] Not Reportable [facility] No Panel Informationon 08-13 Stool Occult Blood (SANDRA) Positive [facility] Positive Abnormal [facility] No Panel Informationon 06-18 Positive Abnormal [facility] Coumadin Management: Warfari n Calcon 10-09-2017 INR Coag RelTime (Bld) 2.5 to 3.5 Invalid Interpretation Code [facility] Work Phone: Lab Report: Prothrombin Time w/INRon 10-08-2017 INR Coag RelTime (PPP) 2.4 {INR} Invalid Interpretation Code [facility] Work Phone: [phone] Prothrombin time (PT) Coag time (PPP) 25.3 s High 11.7-14.9 [facility] Work Phone: [phone] Coumadin Management: Valery rod Calcon 09-20-2017 INR Coag RelTime (Bld) Hospital lab Invalid Interpretation Code [facility] Work Phone: [phone] INR Coag RelTime (Bld) 2.5 to 3.5 Invalid Interpretation Code [facility] Work Phone: [phone] INR Coag RelTime (PPP) 3.5 {INR} Invalid Interpretation Code [facility] Work Phone: [phone] Prothrombin time (PT) Coag time (PPP) 33.8 s Invalid Interpretation Code [facility] Work Phone: [phone] Lab Report: Prothrombin Time w/INRon 09-20-2017 Prothrombin time (PT) Coag time (PPP) 33.8 s High 11.7-14.9 [facility] Work Phone: [phone] Replaced Document: Uric Acid on 08-08-2017 Urate 9.1 mg/dL High 3.5-7.2 [facility] Work Phone: [phone] Office Visiton 07-16-2017 Dietary management education, guidance, and counseling (procedure) yes Invalid Interpretation Code [facility] Work Phone: [phone] Documentation of current medications (procedure) Done Invalid Interpretation Code [facility] Work Phone: [phone] Fall risk assessment No Invalid Interpretation Code [facility] Work Phone: [phone] Tobacco use CPHS Never smoker Invalid Interpretation Code [facility] Work Phone: [phone] Lab Report: BNP,B-Type NATRI URETIC PEPTIDEon 05-02-2017 BNP 410.2 pg/mL High 0-100 [facility] Work Phone: [phone] Lab Report: Basic Metabolic Profile (BMP)on 05-02-2017 Anion gap 8 mmol/L Invalid Interpretation Code 5-15 [facility] Work Phone: [phone] BUN/Creatinine Ratio 18.4 RATIO Invalid Interpretation Code 09-07 [facility] Work Phone: [phone] Calcium 9.0 mg/dL Invalid Interpretation Code 8.5-10.1 [facility] Work Phone: [phone] Chloride 105 mmol/L Invalid Interpretation Code 98-107 [facility] Work Phone: [phone] CO2 24.0 mmol/L Invalid Interpretation Code 21.0-32.0 [facility] Work Phone: [phone] Creatinine 1.96 mg/dL High 0.70-1.30 [facility] Work Phone: [phone] eGFR (non-black) 44 mL/min/{1.73_m2} Low >60 [facility] Work Phone: [phone] eGFR (non-black) 36 mL/min/{1.73_m2} Low >60 [facility] Work Phone: [phone] Glucose mass conc 94 mg/dL Invalid Interpretation Code 70-110 [facility] Work Phone: [phone] Potassium molar conc 4.4 mmol/L Invalid Interpretation Code 3.5-5.1 [facility] Work Phone: [phone] Sodium 137 mmol/L Invalid Interpretation Code 136-145 [facility] Work Phone: [phone] Urea nitrogen 36 mg/dL High 7-18 [facility] Work Phone: [phone] Lab Report: CBC W/Diff, Auto matedon 05-02-2017 Absolute Neut 3.4 X10 3/UL Invalid Interpretation Code 2.0-7.7 [facility] Work Phone: [phone] Basophils/100 WBC Auto (Bld) 0.5 % Invalid Interpretation Code 0-1 [facility] Work Phone: [phone] Eosinophils/100 leukocytes 3.9 % Invalid Interpretation Code 0-5 [facility] Work Phone: [phone] Erythrocyte distribution width Auto Ratio (RBC) 14.8 % High 11.6-14.6 [facility] Work Phone: [phone] Erythrocytes (RBC) 3.77 10*6/uL Low 4.6-6.2 [facility] Work Phone: [phone] Hematocrit (HCT) 36.8 % Low 40-54 [facility] Work Phone: [phone] Hemoglobin mass conc (Bld) 12.0 g/dL Low 13.0-16.5 [facility] Work Phone: [phone] Immature granulocytes/100 WBC (Bld) 0.200 % Invalid Interpretation Code 0.0-0.9 [facility] Work Phone: [phone] Lymphocytes 1.49 X10 3/UL Invalid Interpretation Code 0.83-4.51 [facility] Work Phone: [phone] Lymphocytes/100 leukocytes 25.5 % Invalid Interpretation Code 19-41 [facility] Work Phone: [phone] MCH 31.8 pg Invalid Interpretation Code 27.0-32.0 [facility] Work Phone: [phone] MCHC mass conc (RBC) 32.6 G/GL Invalid Interpretation Code 32-36 [facility] Work Phone: [phone] MCV 97.6 fL High 80-94 [facility] Work Phone: [phone] Monocytes/100 leukocytes 12.5 % High 0-10 [facility] Work Phone: [phone] Neutrophils/100 WBC Auto (Bld) 57.4 % Invalid Interpretation Code 47-70 [facility] Work Phone: [phone] Platelets 117 10*3/mm3 Low 150-450 [facility] Work Phone: [phone] PMV by Tao 10.8 fL Invalid Interpretation Code 6.2-12.0 [facility] Work Phone: [phone] RDW SD 53.3 fL High 35.1-43.9 [facility] Work Phone: [phone] WBC (Leukocytes) 5.9 10*3/uL Invalid Interpretation Code 4.4-11.0 [facility] Work Phone: [phone] Lab Report: T4 Total, Thyrox inon 05-02-2017 Thyroxine (T4) 7.8 ug/dL Invalid Interpretation Code 4.5-12.1 [facility] Work Phone: [phone] Lab Report: Thyroid Stim Hor radha (TSH)on 05-02-2017 Thyroid stimulating hormone (TSH) 2.38 u[iU]/mL Invalid Interpretation Code 0.358-3.74 [facility] Work Phone: [phone] Lab Report: PTH,INTACTon Parathyrin intact (PTH) 186 pg/mL High 14-72 [facility] Work Phone: [phone] Lab Report: Vitamin D,25 Hyd roxyon 04-11-2017 Vitamin D 25-OH 28.0 ng/mL Invalid Interpretation Code [facility] Work Phone: [phone] Lab Report: Renal Profileon 04-10-2017 Albumin 3.6 g/dL Invalid Interpretation Code 3.4-5.0 [facility] Work Phone: [phone] PHOS 2.4 mg/dL Low 2.5-4.9 [facility] Work Phone: [phone]) Lab Report: Comprehensive Me tabolic Profilon 02-19-2017 Alanine aminotransferase (ALT) 42 U/L Invalid Interpretation Code 12-78 [facility] Work Phone: [phone] Albumin/Globulin Ratio 1 {ratio} Invalid Interpretation Code 0.9-2.4 [facility] Work Phone: [phone] Alkaline phosphatase (ALP) 173 U/L High 45-117 [facility] Work Phone: [phone] Aspartate aminotransferase (AST) 40 U/L High 15-37 [facility] Work Phone: [phone] Bilirubin (total) 1.10 mg/dL High 0.20-1.00 [facility] Work Phone: [phone] Globulin 4.3 g/dL High 2.3-3.5 [facility] Work Phone: [phone] Protein 8.5 g/dL High 6.4-8.2 [facility] Work Phone: [phone] Lab Report: LDHon 02-19-2017 LDH 344 U/L High 87-241 [facility] Work Phone: [phone] Lab Report: Magnesiumon Magnesium 2.3 mg/dL Invalid Interpretation Code 1.8-2.4 [facility] Work Phone: Lab Report: PSA,Total- Diagn osticon 02-19-2017 PSA, DIAGNOSTIC 4.73 ng/mL High 0.0-4.0 [facility] Phone: Office Visit: 6 MO - LABSon 02-19-2017 Tobacco smoking status NHIS Never Invalid Interpretation Code [facility] Phone: 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 See lab report for original value. [facility] Phone: [phone] Lab Report: Erythrocyte Sed Rateon 09-11-2016 Erythrocyte sedimentation rate 41 mm/h High 0-20 [facility] Phone: [phone] Lab Report: PSA,Total - Viridiana al Screenon 09-05-2016 PSA,TOT SCREEN 4.68 ng/mL High 0.00-4.00 [facility] Phone: [phone] Microbiology: Culture, Fungu s w/ [id number] 04-05-2016 CUFST . Invalid Interpretation Code [facility] Phone: [phone] Microbiology: Culture, Blood (WB)on 03-12-2016 Bacteria culture BCNo growth in 5 days. Invalid Interpretation Code [facility] Phone: [phone] Microbiology: Culture, Sputu mon 03-10-2016 Bacteria sputum culture . Invalid Interpretation Code [facility] Phone: [phone] Lab Report: Basic Metabolic Profile (BMP)on 03-07-2016 Creatinine 34.13 mL/min Invalid Interpretation Code [facility] Phone: [phone] Lab Report: CBC W/Diff, Auto matedon 03-07-2016 Pathologist (cervix/vaginal) May foll Invalid Interpretation Code [facility] Work Phone: [phone] SMEAR COMMENT SCANNED Invalid Interpretation Code [facility] Work Phone: [phone] Lab Report: Partial Thrombop last Timeon 03-07-2016 aPTT 62.4 s High 24.1-36.2 [facility] Work Phone: [phone] Replaced Document: Mk Domínguez Staph Aureus DNA by PCRon 03-07-2016 INR Coag RelTime (Bld) Negative Invalid Interpretation Code Negative [facility] Work Phone: [phone] Lab Report: Hemoglobin A1con 03-06-2016 Hemoglobin A1c/Hemoglobin.total mass fraction (Bld) 5.3 % Invalid Interpretation Code 4.2-6.3 [facility] Work Phone: [phone] Lab Report: Lactic Acidon Lactate 1.8 mmol/L Invalid Interpretation Code 0.4-2.0 [facility] Work Phone: [phone] Lab Report: CBC W/Diff, Auto matedon 03-05-2016 Anisocytosis presence 3+ Invalid Interpretation Code [facility] Work Phone: [phone] MICROCYTES 1+ Invalid Interpretation Code [facility] Work Phone: [phone] Lab Report: Prealbuminon Prealbumin 25.3 mg/dL Invalid Interpretation Code 20.0-40.0 [facility] Phone: [phone] Lab Report: Prothrombin Time Fingerstickon 03-02-2016 Prothrombin time (PT) Coag time (PPP) 14.7 s High 11.9-14.4 [facility] Work Phone: [phone] Office Visiton 01-18-2016 Colonoscopy (procedure) Diverticulosis Invalid Interpretation Code [facility] Phone: [phone] Lab Report: Lipid Profileon 12-09-2015 Cholesterol 229 mg/dL High 200 [facility] Work Phone: [phone] HDL Cholesterol 44 mg/dL Invalid Interpretation Code [facility] Phone: [phone] LDL Cholesterol 127 mg/dL Invalid Interpretation Code 0-130 [facility] Work Phone: [phone] Triglyceride 291 mg/dL High [facility] Work Phone: [phone] very low density lipoproteins 58 mg/dL High 5-40 [facility] Work Phone: [phone] Lab Report: Liver Profileon 12-09-2015 Bilirubin (direct) 0.18 mg/dL Invalid Interpretation Code 0.00-0.30 [facility] Work Phone: [phone] Office Visit: [facility] 09-13-20 15 General cardiovascular disease 10Y risk [#] Aspen.D'Agostino 27 % Invalid Interpretation Code [facility] Work Phone: [phone] Replaced Document: Mable CADET Observationson 09-13-2015 EKG QRS axis -96 deg Invalid Interpretation Code [facility] Work Phone: [phone] Interpretation Electronic ventricul ar pacemaker Pacemaker ECG, No further analysis INSUFFICIENT DATA Invalid Interpretation Code [facility] Work Phone: [phone] P [place] 1 deg Invalid Interpretation Code [facility] Work Phone: [phone] VT Interval 0 ms Invalid Interpretation Code [facility] Work Phone: [phone] Pulse (Heart Rate) 71 /min Invalid Interpretation Code [facility] Work Phone: [phone] QRS Duration 144 ms Invalid Interpretation Code [facility] Work Phone: [phone] QT Interval new path ms Invalid Interpretation Code [facility] Work Phone: [phone] T [place] 109 deg Invalid Interpretation Code [facility] Work Phone: [phone] Replaced Document: Mable CADET Observationson 05-08-2013 Pulse (Heart Rate) 532 ms Invalid Interpretation Code [facility] Work Phone: [phone] Office Visiton 10-06-2011 cardiac risk group B Invalid Interpretation Code [facility] Work Phone: [phone] cholesterol, target level 200 mg/dL Invalid Interpretation Code [facility] Work Phone: [phone] HDL cholesterol, serum, target level 40 mg/dL Invalid Interpretation Code [facility] Work Phone: [phone] LDL target level 130 mg/dL Invalid Interpretation Code [facility] Work Phone: [phone] triglyceride, target level 150 mg/dL Invalid Interpretation Code [facility] Work Phone: Stool gastrointestinal hemog lobin detection by immunologic method Stool Occult Blood (SANDRA) Positive [facility] Work Phone: Vital Signs Date Time Vital Sign Value Performing Clinician Facility 06-24-2025 08:45-0400 Body temperature 97.6 [degF] Dr. Castro Ferrara DO Work Phone: [facility] 06-24-2025 08:45-0400 Diastolic blood pressure 52 mm[Hg] Dr. Castro Ferrara DO Work Phone: [facility] 06-24-2025 08:45-0400 Heart rate 71 /min Dr. Castro Ferrara DO Work Phone: [facility] 06-24-2025 08:45-0400 Respiratory rate 22 /min Dr. Castro Ferrara DO Work Phone: [facility] 06-24-2025 08:45-0400 SaO2% (BldA) [Mass fraction] 91 % Dr. Castro Ferrara DO Work Phone: [facility] 06-24-2025 08:45-0400 Systolic blood pressure 135 mm[Hg] Dr. Castro Ferrara DO Work Phone: [facility] 06-23-2025 14:00-0400 Inhaled oxygen flow rate 2 L/min Dr. Castro Ferrara DO Work Phone: [facility] 06-23-2025 10:17-0400 Body height 170.[address] Castro Ferrara DO Work Phone: [facility] 06-23-2025 10:17-0400 Body mass index (BMI) [Ratio] 24.1 kg/m2 Dr. Castro Ferrara DO Work Phone: [facility] 06-23-2025 10:17-0400 Body weight 69.[address] Castro Ferrara DO Work Phone: [facility] 06-14-2025 13:45-0400 Body temperature 97.6 [degF] Dr. Castro Ferrara DO Work Phone: [facility] 06-14-2025 13:45-0400 Diastolic blood pressure 43 mm[Hg] Dr. Castro Ferrara DO Work Phone: [facility] 06-14-2025 13:45-0400 Heart rate 70 /min Dr. Castro Ferrara DO Work Phone: [facility] 06-14-2025 13:45-0400 Respiratory rate 18 /min Dr. Castro Ferrara DO Work Phone: [facility] 06-14-2025 13:45-0400 SaO2% (BldA) [Mass fraction] 99 % Dr. Castro Ferrara DO Work Phone: [facility] 06-14-2025 13:45-0400 Systolic blood pressure 120 mm[Hg] Dr. Castro Ferrara DO Work Phone: [facility] 06-14-2025 08:53-0400 Body height 170.[address] Castro Ferrara DO Work Phone: [facility] 06-14-2025 08:53-0400 Body mass index (BMI) [Ratio] 26.2 kg/m2 Dr. Castro Ferrara DO Work Phone: [facility] 06-14-2025 08:53-0400 Body weight 76.[address] Castro Ferrara DO Work Phone: [facility] 05-27-2025 13:14-0400 Body height 170.[address] Castro Ferrara DO Work Phone: [facility] 05-27-2025 13:14-0400 Body mass index (BMI) [Ratio] 25 kg/m2 Dr. Castro Ferrara DO Work Phone: [facility] 05-27-2025 13:14-0400 Body weight 72.[address] Castro Ferrara DO Work Phone: [facility] 05-27-2025 13:14-0400 Diastolic blood pressure 48 mm[Hg] Dr. Castro Ferrara DO Work Phone: [facility] 05-27-2025 13:14-0400 Heart rate 72 /min Dr. Castro Ferrara DO Work Phone: [facility] 05-27-2025 13:14-0400 Respiratory rate 14 /min Dr. Castro Ferrara DO Work Phone: [facility] 05-27-2025 13:14-0400 SaO2% (BldA) [Mass fraction] 97 % Dr. Castro Ferrara DO Work Phone: [facility] 05-27-2025 13:14-0400 Systolic blood pressure 105 mm[Hg] Dr. Castro Ferrara DO Work Phone: [facility] 04-18-2025 18:27-0400 Body mass index (BMI) [Ratio] 26.5 kg/m2 Dr. Castro Ferrara DO Work Phone: [facility] 04-18-2025 18:27-0400 Body weight 76.[address] Castro Ferrara DO Work Phone: [facility] 04-18-2025 18:01-0400 Body height 170.[address] Castro Ferrara DO Work Phone: [facility] 04-18-2025 18:01-0400 Body temperature 97.6 [degF] Dr. Castro Ferrara DO Work Phone: [facility] 04-18-2025 18:01-0400 Diastolic blood pressure 52 mm[Hg] Dr. Castro Ferrara DO Work Phone: [facility] 04-18-2025 18:01-0400 Heart rate 94 /min Dr. Castro Ferrara DO Work Phone: [facility] 04-18-2025 18:01-0400 Respiratory rate 16 /min Dr. Castro Ferrara DO Work Phone: [facility] 04-18-2025 18:01-0400 SaO2% (BldA) [Mass fraction] 100 % Dr. Castro Ferrara DO Work Phone: [facility] 04-18-2025 18:01-0400 Systolic blood pressure 106 mm[Hg] Dr. Castro Ferrara DO Work Phone: [facility] 04-15-2025 15:44-0400 Body height 170.8 cm Vaishnavi Blancootka DO Work Phone: [facility] Comment on above: pt. stated 04-15-2025 15:44-0400 Body mass index (BMI) [Ratio] 21.45 kg/m2 Vaishnavi Sobotka DO Work Phone: [facility] 04-15-2025 15:44-0400 Body weight 62.6 kg Vaishnavi Sobotka DO Work Phone: [facility] 04-15-2025 15:44-0400 Diastolic blood pressure 40 mm[Hg] Vaishnavi Sobotka DO Work Phone: [facility] Comment on above: provider made aware 04-15-2025 15:44-0400 Heart rate 70 /min Vaishnavi Sobotka DO Work Phone: [facility] 04-15-2025 15:44-0400 Respiratory rate 16 /min Vaishnavi Sobotka DO Work Phone: [facility] 04-15-2025 15:44-0400 SaO2% (BldA) [Mass fraction] 96 % Vaishnavi Sobotka DO Work Phone: [facility] 04-15-2025 15:44-0400 Systolic blood pressure 90 mm[Hg] Vaishnavi Sobotka DO Work Phone: [facility] Comment on above: provider made aware 03-25-2025 08:28-0400 Body mass index (BMI) [Ratio] 25.2 kg/m2 Dr. Castro Ferrara DO Work Phone: [facility] 03-25-2025 08:28-0400 Body temperature 96.8 [degF] Dr. Castro Ferrara DO Work Phone: [facility] 03-25-2025 08:28-0400 Body weight 73.[address] Castro Ferrara DO Work Phone: [facility] 03-25-2025 08:28-0400 Diastolic blood pressure 56 mm[Hg] Dr. Castro Ferrara DO Work Phone: [facility] 03-25-2025 08:28-0400 Heart rate 52 /min Dr. Castro Ferrara DO Work Phone: [facility] 03-25-2025 08:28-0400 Respiratory rate 18 /min Dr. Castro Ferrara DO Work Phone: [facility] 03-25-2025 08:28-0400 SaO2% (BldA) [Mass fraction] 96 % Dr. Castro Ferrara DO Work Phone: [facility] 03-25-2025 08:28-0400 Systolic blood pressure 95 mm[Hg] Dr. Castro Ferrara DO Work Phone: [facility] 03-17-2025 15:11-0400 Body weight 73.[address] Castro Ferrara DO Work Phone: [facility] 03-06-2025 14:24-0400 Body temperature 97.5 [degF] Hoda Moore MD Work Phone: [facility] 03-06-2025 14:24-0400 Diastolic blood pressure 57 mm[Hg] Hoda Moore MD Work Phone: [facility] 03-06-2025 14:24-0400 Heart rate 69 /min Hoda Moore MD Work Phone: [facility] 03-06-2025 14:24-0400 Respiratory rate 18 /min Hoda Moore MD Work Phone: [facility] 03-06-2025 14:24-0400 SaO2% (BldA) [Mass fraction] 100 % Hoda Moore MD Work Phone: [facility] 03-06-2025 14:24-0400 Systolic blood pressure 116 mm[Hg] Hoda Moore MD Work Phone: [facility] 02-17-2025 07:32-0400 Body height 170.2 cm Hoda Moore MD Work Phone: [facility] 02-17-2025 07:32-0400 Body mass index (BMI) [Ratio] 27.24 kg/m2 Hoda Moore MD Work Phone: [facility] 02-17-2025 07:32-0400 Body weight 78.9 kg Hoda Moore MD Work Phone: [facility] 02-13-2025 08:00-0400 Diastolic blood pressure 55 mm[Hg] Dr. Castro Ferrara DO Work Phone: [facility] 02-13-2025 08:00-0400 Heart rate 74 /min Dr. Castro Ferrara DO Work Phone: [facility] 02-13-2025 08:00-0400 Inhaled oxygen flow rate 2 L/min Dr. Castro Ferrara DO Work Phone: [facility] 02-13-2025 08:00-0400 Respiratory rate 16 /min Dr. Castro Ferrara DO Work Phone: [facility] 02-13-2025 08:00-0400 SaO2% (BldA) [Mass fraction] 95 % Dr. Castro Ferrara DO Work Phone: [facility] 02-13-2025 08:00-0400 Systolic blood pressure 92 mm[Hg] Dr. Castro Ferrara DO Work Phone: [facility] 02-13-2025 06:12-0400 Body temperature 98.2 [degF] Dr. Castro Ferrara DO Work Phone: [facility] 02-12-2025 22:19-0400 Body mass index (BMI) [Ratio] 27.2 kg/m2 Dr. Castro Ferrara DO Work Phone: [facility] 02-12-2025 22:19-0400 Body weight 78.[address] Castro Ferrara DO Work Phone: [facility] 02-12-2025 22:16-0400 Body height 170.[address] Castro Ferrara DO Work Phone: [facility] 01-28-2025 10:39-0400 Body mass index (BMI) [Ratio] 27.2 kg/m2 Dr. Castro Ferrara DO Work Phone: [facility] 01-28-2025 10:39-0400 Body weight 78.[address] Castro Ferrara DO Work Phone: [facility] 01-28-2025 10:39-0400 Diastolic blood pressure 51 mm[Hg] Dr. Castro Ferrara DO Work Phone: [facility] 01-28-2025 10:39-0400 Heart rate 73 /min Dr. Castro Ferrara DO Work Phone: [facility] 01-28-2025 10:39-0400 Respiratory rate 16 /min Dr. Castro Ferrara DO Work Phone: [facility] 01-28-2025 10:39-0400 Systolic blood pressure 92 mm[Hg] Dr. Castro Ferrara DO Work Phone: [facility] 12-19-2024 16:00-0500 Body temperature 97.7 [degF] Carly Mane MD Work Phone: [facility] 12-19-2024 16:00-0500 Diastolic blood pressure 55 mm[Hg] Carly Mane MD Work Phone: [facility] 12-19-2024 16:00-0500 Heart rate 87 /min Carly Mane MD Work Phone: [facility] 12-19-2024 16:00-0500 Respiratory rate 18 /min Carly Mane MD Work Phone: [facility] 12-19-2024 16:00-0500 SaO2% (BldA) [Mass fraction] 96 % Carly Mane MD Work Phone: [facility] 12-19-2024 16:00-0500 Systolic blood pressure 115 mm[Hg] Carly Mane MD Work Phone: [facility] 12-18-2024 17:00-0500 Body height 170.2 cm Carly Mane MD Work Phone: [facility] 12-18-2024 17:00-0500 Body mass index (BMI) [Ratio] 27.32 kg/m2 Carly Mane MD Work Phone: [facility] 12-18-2024 17:00-0500 Body weight 79.15 kg Carly Mane MD Work Phone: [facility] 12-18-2024 10:11-0500 Diastolic blood pressure 48 mm[Hg] Dr. Castro Ferrara DO Work Phone: [facility] 12-18-2024 10:11-0500 Heart rate 80 /min Dr. Castro Ferrara DO Work Phone: [facility] 12-18-2024 10:11-0500 Respiratory rate 16 /min Dr. Castro Ferrara DO Work Phone: [facility] 12-18-2024 10:11-0500 SaO2% (BldA) [Mass fraction] 95 % Dr. Castro Ferrara DO Work Phone: [facility] 12-18-2024 10:11-0500 Systolic blood pressure 116 mm[Hg] Dr. Castro Ferrara DO Work Phone: [facility] 12-18-2024 09:09-0500 Body temperature 98.2 [degF] Dr. Castro Ferrara DO Work Phone: [facility] 12-17-2024 16:00-0500 Body mass index (BMI) [Ratio] 27.2 kg/m2 Dr. Castro Ferrara DO Work Phone: [facility] 12-17-2024 16:00-0500 Body weight 78.[address] Castro Ferrara DO Work Phone: [facility] 12-16-2024 19:52-0500 Body temperature 97.8 [degF] Dr. Castro Ferrara DO Work Phone: [facility] 12-16-2024 19:52-0500 Diastolic blood pressure 56 mm[Hg] Dr. Castro Ferrara DO Work Phone: [facility] 12-16-2024 19:52-0500 Heart rate 70 /min Dr. Castro Ferrara DO Work Phone: [facility] 12-16-2024 19:52-0500 Respiratory rate 18 /min Dr. Castro Ferrara DO Work Phone: [facility] 12-16-2024 19:52-0500 SaO2% (BldA) [Mass fraction] 100 % Dr. Castro Ferrara DO Work Phone: [facility] 12-16-2024 19:52-0500 Systolic blood pressure 112 mm[Hg] Dr. Castro Ferrara DO Work Phone: [facility] 12-16-2024 14:29-0500 Body mass index (BMI) [Ratio] 26.9 kg/m2 Dr. Castro Ferrara DO Work Phone: [facility] 12-16-2024 14:29-0500 Body weight [address] Castro Ferrara DO Work Phone: [facility] 11-25-2024 16:09-0500 Diastolic blood pressure 44 mm[Hg] Dr. Castro Ferrara DO Work Phone: [facility] 11-25-2024 16:09-0500 Systolic blood pressure 90 mm[Hg] Dr. Castro Ferrara DO Work Phone: [facility] 11-25-2024 13:49-0500 Body mass index (BMI) [Ratio] 27.2 kg/m2 Dr. Castro Ferrara DO Work Phone: [facility] 11-25-2024 13:49-0500 Body temperature 97.7 [degF] Dr. Castro Ferrara DO Work Phone: [facility] 11-25-2024 13:49-0500 Body weight 78.[address] Castro Ferrara DO Work Phone: [facility] 11-25-2024 13:49-0500 Heart rate 80 /min Dr. Castro Ferrara DO Work Phone: [facility] 11-25-2024 13:49-0500 Respiratory rate 17 /min Dr. Castro Ferrara DO Work Phone: [facility] 11-25-2024 13:49-0500 SaO2% (BldA) [Mass fraction] 100 % Dr. Castro Ferrara DO Work Phone: [facility] 10-22-2024 10:51-0500 Body height 170.2 cm Kelby GOMEZ Work Phone: [facility] 10-22-2024 10:51-0500 Body mass index (BMI) [Ratio] 27.25 kg/m2 Kelby Chance MACHINE AD[employer]ER [employer]RER MACHINE Work Phone: [facility] 10-22-2024 10:51-0500 Body weight 78.93 kg Kelby Chance MACHINE ADJUSTER LEADER [employer]IM-DEBURRER MACHINE Work Phone: [facility] 10-22-2024 10:51-0500 Diastolic blood pressure 48 mm[Hg] Kelby Chance MACHINE ADJUSTER LEADER [employer]IM-DEBURRER MACHINE Work Phone: [facility] 10-22-2024 10:51-0500 Systolic blood pressure 122 mm[Hg] Kelby Chance MACHINE ADJUSTER LEADER [employer]IM-DEBURRER MACHINE Work Phone: [facility] 04-16-2024 10:19-0400 Diastolic blood pressure 38 mm[Hg] Vaishnavi Sobotka DO Work Phone: [facility] 04-16-2024 10:19-0400 Heart rate 70 /min Vaishnavi Sobotka DO Work Phone: [facility] 04-16-2024 10:19-0400 SaO2% (BldA) [Mass fraction] 100 % Vaishnavi Sobotka DO Work Phone: [facility] 04-16-2024 10:19-0400 Systolic blood pressure 78 mm[Hg] Vaishnavi Sobotka DO Work Phone: [facility] 04-02-2024 13:15-0400 Diastolic blood pressure 54 mm[Hg] Ronnie Ferrari MD Work Phone: [facility] 04-02-2024 13:15-0400 Heart rate 69 /min Ronnie Ferrari MD Work Phone: [facility] 04-02-2024 13:15-0400 Respiratory rate 18 /min Ronnie Ferrari MD Work Phone: [facility] 04-02-2024 13:15-0400 SaO2% (BldA) [Mass fraction] 99 % Ronnie Ferrari MD Work Phone: 5(353)015-250612 [place] [address] 04-02-2024 13:15-0400 Systolic blood pressure 98 mm[Hg] Ronnie Ferrari MD Work Phone: 6(778)452-774012 [place] [address] 04-02-2024 08:03-0400 Body height 170.2 cm Ronnie Ferrari MD Work Phone: 6(909)157-591212 [place] [address] 04-02-2024 08:03-0400 Body mass index (BMI) [Ratio] 26.41 kg/m2 Ronnie Ferrari MD Work Phone: 6(985)[phone] [place] [address] 04-02-2024 08:03-0400 Body temperature 98.1 [degF] Ronnie Ferrari MD Work Phone: 0(790)330-277412 [place] [address] 04-02-2024 08:03-0400 Body weight 76.5 kg Ronnie Ferrari MD Work Phone: 9(847)882-929512 [place] [address] 03-24-2024 16:11-0400 Body height 170.2 cm Carla ROSE Work Phone: 0(726)933-995312 [place] [address] 03-24-2024 16:11-0400 Body mass index (BMI) [Ratio] 26.62 kg/m2 Carla ROSE Work Phone: 2(063)532-180612 [place] [address] 03-24-2024 16:11-0400 Body weight 77.1 kg Carla ROSE Work Phone: 1(441)024-708812 [place] [address] 03-24-2024 16:11-0400 Diastolic blood pressure 62 mm[Hg] Carla De Andazal MBNADEGE Work Phone: 5(835)992-556812 [place] [address] 03-24-2024 16:11-0400 Systolic blood pressure 108 mm[Hg] Carla ROSE Work Phone: [facility] 12-12-2023 11:12-0500 Body height 170.[address] Castro Ferrara Work Phone: [facility] 12-12-2023 11:12-0500 Body mass index (BMI) [Ratio] 27.3 kg/m2 Dr. Castro Ferrara Work Phone: [facility] 12-12-2023 11:12-0500 Body weight 79.[address] Castro Ferrara Work Phone: [facility] 12-12-2023 11:12-0500 Diastolic blood pressure 57 mm[Hg] Dr. Castro Ferrara Work Phone: [facility] 12-12-2023 11:12-0500 Heart rate 71 /min Dr. Castro Ferrara Work Phone: [facility] 12-12-2023 11:12-0500 Respiratory rate 16 /min Dr. Castro Ferrara Work Phone: [facility] 12-12-2023 11:12-0500 Systolic blood pressure 96 mm[Hg] Dr. Castro Ferrara Work Phone: [facility] 12-05-2023 09:47-0500 Body height 170.2 cm Kelby Chance APRN-DEBURRER MACHINE Work Phone: [facility] 12-05-2023 09:47-0500 Body mass index (BMI) [Ratio] 26.63 kg/m2 Kelby Chance APRN-DEBURRER MACHINE Work Phone: [facility] 12-05-2023 09:47-0500 Body weight 77.11 kg Kelby Chance APRN-DEBURRER MACHINE Work Phone: [facility] 12-05-2023 09:47-0500 Diastolic blood pressure 62 mm[Hg] Kelby Chance APRN-DEBURRER MACHINE Work Phone: [facility] 01-17-2024 09:47-0500 Heart rate 74 /min Kelby Chance APRN-DEBURRER MACHINE Work Phone: [facility] 12-05-2023 09:47-0500 SaO2% (BldA) [Mass fraction] 93 % Kelby Chance APRN-DEBURRER MACHINE Work Phone: [facility] 12-05-2023 09:47-0500 Systolic blood pressure 108 mm[Hg] Kelby Chance APRN-DEBURRER MACHINE Work Phone: [facility] 09-19-2023 06:08-0400 Body height 170.[address] Castro Ferrara Work Phone: [facility] 09-19-2023 06:08-0400 Body mass index (BMI) [Ratio] 26.9 kg/m2 Dr. Castro Ferrara Work Phone: [facility] 09-19-2023 06:08-0400 Body temperature 97.3 [degF] Dr. Castro Ferrara Work Phone: [facility] 09-19-2023 06:08-0400 Body weight 78.[address] Castro Ferrara Work Phone: [facility] 09-19-2023 06:08-0400 Diastolic blood pressure 54 mm[Hg] Dr. Castro Ferrara Work Phone: [facility] 09-19-2023 06:08-0400 Heart rate 92 /min Dr. Castro Ferrara Work Phone: [facility] 09-19-2023 06:08-0400 Respiratory rate 18 /min Dr. Castro Ferrara Work Phone: [facility] 09-19-2023 06:08-0400 SaO2% (BldA) [Mass fraction] 92 % Dr. Castro Ferrara Work Phone: [facility] 09-19-2023 06:08-0400 Systolic blood pressure 88 mm[Hg] Dr. Castro Ferrara Work Phone: [facility] 08-07-2023 14:36-0400 Body temperature 98.2 [degF] Dr. Castro Ferrara Work Phone: [facility] 08-07-2023 14:36-0400 Diastolic blood pressure 40 mm[Hg] Dr. Castro Ferrara Work Phone: [facility] 08-07-2023 14:36-0400 Heart rate 74 /min Dr. Castro Ferrara Work Phone: [facility] 08-07-2023 14:36-0400 Respiratory rate 16 /min Dr. Castro Ferrara Work Phone: [facility] 08-07-2023 14:36-0400 SaO2% (BldA) [Mass fraction] 99 % Dr. Castro Ferrara Work Phone: [facility] 08-07-2023 14:36-0400 Systolic blood pressure 98 mm[Hg] Dr. Castro Ferrara Work Phone: [facility] 07-13-2023 08:33-0400 Body height 170.2 cm Vaishnavi Sobotka DO Work Phone: [facility] 07-13-2023 08:33-0400 Body mass index (BMI) [Ratio] 27.41 kg/m2 Vaishnavi Sobotka DO Work Phone: [facility] 07-13-2023 08:33-0400 Body temperature 97.2 [degF] Vaishnavi Sobotka DO Work Phone: [facility] 07-13-2023 08:33-0400 Body weight 79.38 kg Vaishnavi Sobotka DO Work Phone: [facility] 07-13-2023 08:33-0400 Diastolic blood pressure 38 mm[Hg] Vaishnavi Sobotka DO Work Phone: [facility] 07-13-2023 08:33-0400 Systolic blood pressure 88 mm[Hg] Vaishnavi Fry DO Work Phone: [facility] 06-11-2023 10:09-0400 Body height 170.[address] Castro Ferrara Work Phone: [facility] 06-11-2023 10:09-0400 Body mass index (BMI) [Ratio] 27.3 kg/m2 Dr. Castro Ferrara Work Phone: [facility] 06-11-2023 10:09-0400 Body weight 79.[address] Castro Ferrara Work Phone: [facility] 06-11-2023 10:09-0400 Diastolic blood pressure 59 mm[Hg] Dr. Castro Ferrara Work Phone: [facility] 06-11-2023 10:09-0400 Heart rate 88 /min Dr. Castro Ferrara Work Phone: [facility] 06-11-2023 10:09-0400 Respiratory rate 22 /min Dr. Castro Ferrara Work Phone: [facility] 06-11-2023 10:09-0400 SaO2% (BldA) [Mass fraction] 99 % Dr. Castro Ferrara Work Phone: [facility] 06-11-2023 10:09-0400 Systolic blood pressure 98 mm[Hg] Dr. Castro Ferrara Work Phone: [facility] 06-04-2023 14:32-0400 Body mass index (BMI) [Ratio] 26.6 kg/m2 Dr. Castro Ferrara Work Phone: [facility] 06-04-2023 14:32-0400 Body temperature 97.2 [degF] Dr. Castro Ferrara Work Phone: [facility] 06-04-2023 14:32-0400 Body weight 77.[address] Castro Ferrara Work Phone: [facility] 06-04-2023 14:32-0400 Diastolic blood pressure 54 mm[Hg] Dr. Castro Ferrara Work Phone: [facility] 06-04-2023 14:32-0400 Heart rate 69 /min Dr. Castro Ferrara Work Phone: [facility] 06-04-2023 14:32-0400 Respiratory rate 16 /min Dr. Castro Ferrara Work Phone: [facility] 06-04-2023 14:32-0400 SaO2% (BldA) [Mass fraction] 99 % Dr. Castro Ferrara Work Phone: [facility] 06-04-2023 14:32-0400 Systolic blood pressure 98 mm[Hg] Dr. Castro Ferrara Work Phone: [facility] 05-18-2023 22:35-0400 Body mass index (BMI) [Ratio] 28.8 kg/m2 Dr. Castro Ferrara Work Phone: [facility] 04-09-2023 11:02-0400 Body height 170.[address] Castro Ferrara Work Phone: [facility] 04-09-2023 11:02-0400 Body mass index (BMI) [Ratio] 27.4 kg/m2 Dr. Castro Ferrara Work Phone: [facility] 04-09-2023 11:02-0400 Body temperature 97.8 [degF] Dr. Castro Ferrara Work Phone: [facility] 04-09-2023 11:02-0400 Body weight 79.[address] Castro Ferrara Work Phone: [facility] 04-09-2023 11:02-0400 Diastolic blood pressure 50 mm[Hg] Dr. Castro Ferrara Work Phone: [facility] 04-09-2023 11:02-0400 Heart rate 87 /min Dr. Castro Ferrara Work Phone: [facility] 04-09-2023 11:02-0400 Respiratory rate 16 /min Dr. Castro Ferrara Work Phone: [facility] 04-09-2023 11:02-0400 SaO2% (BldA) [Mass fraction] 99 % Dr. Castro Ferrara Work Phone: [facility] 04-09-2023 11:02-0400 Systolic blood pressure 116 mm[Hg] Dr. Castro Ferrara Work Phone: [facility] 03-29-2023 21:59-0400 Respiratory rate 22 /min Dr. Castro Ferrara Work Phone: [facility] 03-29-2023 21:09-0400 Diastolic blood pressure 47 mm[Hg] Dr. Castro Ferrara Work Phone: [facility] 03-29-2023 21:09-0400 Heart rate 70 /min Dr. Castro Ferrara Work Phone: [facility] 03-29-2023 21:09-0400 SaO2% (BldA) [Mass fraction] 100 % Dr. Castro Ferrara Work Phone: [facility] 03-29-2023 21:09-0400 Systolic blood pressure 106 mm[Hg] Dr. Castro Ferrara Work Phone: [facility] 03-29-2023 17:03-0400 Body height 170.[address] Castro Ferrara Work Phone: [facility] 03-29-2023 17:03-0400 Body mass index (BMI) [Ratio] 27.3 kg/m2 Dr. Castro Ferrara Work Phone: [facility] 03-29-2023 17:03-0400 Body temperature 98 [degF] Dr. Castro Ferrara Work Phone: [facility] 03-29-2023 17:03-0400 Body weight 79.[address] Castro Ferrara Work Phone: [facility] 03-29-2023 09:06-0400 Body height 170.[address] Castro Ferrara Work Phone: [facility] 03-29-2023 09:06-0400 Body weight 70.[address] Castro Ferrara Work Phone: [facility] 03-29-2023 07:24-0400 Body mass index (BMI) [Ratio] 24.3 kg/m2 Dr. Castro Ferrara Work Phone: [facility] 03-28-2023 09:52-0400 Diastolic blood pressure 53 mm[Hg] Darrel Garcia MD Work Phone: [facility] 03-28-2023 09:52-0400 Heart rate 90 /min Darrel Garcia MD Work Phone: [facility] 03-28-2023 09:52-0400 SaO2% (BldA) [Mass fraction] 97 % Darrel Garcia MD Work Phone: [facility] 03-28-2023 09:52-0400 Systolic blood pressure 83 mm[Hg] Darrel Garcia MD Work Phone: [facility] 03-27-2023 14:44-0400 Body temperature 96.6 [degF] Dr. Castro Ferrara Work Phone: [facility] 03-27-2023 14:44-0400 Diastolic blood pressure 61 mm[Hg] Dr. Castro Ferrara Work Phone: [facility] 03-27-2023 14:44-0400 Heart rate 70 /min Dr. Castro Ferrara Work Phone: [facility] 03-27-2023 14:44-0400 Respiratory rate 18 /min Dr. Castro Ferrara Work Phone: [facility] 03-27-2023 14:44-0400 SaO2% (BldA) [Mass fraction] 98 % Dr. Castro Ferrara Work Phone: [facility] 03-27-2023 14:44-0400 Systolic blood pressure 97 mm[Hg] Dr. Castro Ferrara Work Phone: [facility] 03-08-2023 10:27-0400 Body height 170.[address] Vinny Atkinson Work Phone: [facility] 03-08-2023 10:27-0400 Body mass index (BMI) [Ratio] 29.1 kg/m2 Dr. Vinny Atkinson Work Phone: [facility] 03-08-2023 10:27-0400 Body temperature 97.3 [degF] Dr. Vinny Atkinson Work Phone: [facility] 03-08-2023 10:27-0400 Body weight 84.[address] Vinny Atkinson Work Phone: [facility] 03-08-2023 10:27-0400 Diastolic blood pressure 48 mm[Hg] Dr. Vinny Atkinson Work Phone: [facility] 03-08-2023 10:27-0400 Heart rate 88 /min Dr. Vinny Atkinson Work Phone: [facility] 03-08-2023 10:27-0400 Respiratory rate 18 /min Dr. Vinny Atkinson Work Phone: [facility] 03-08-2023 10:27-0400 SaO2% (BldA) [Mass fraction] 99 % Dr. Vinny Atkinson Work Phone: [facility] 03-08-2023 10:27-0400 Systolic blood pressure 81 mm[Hg] Dr. Vinny Atkinson Work Phone: [facility] 02-16-2023 23:14-0400 Body mass index (BMI) [Ratio] 28.8 kg/m2 Dr. Castro Ferrara Work Phone: [facility] 01-19-2023 15:47-0500 Body temperature 98.4 [degF] Dr. Vinny Atkinson Work Phone: [facility] 01-19-2023 15:47-0500 Diastolic blood pressure 53 mm[Hg] Dr. Vinny Atkinson Work Phone: [facility] 01-19-2023 15:47-0500 Heart rate 69 /min Dr. Vinny Atkinson Work Phone: [facility] 01-19-2023 15:47-0500 Respiratory rate 16 /min Dr. Vinny Atkinson Work Phone: [facility] 01-19-2023 15:47-0500 SaO2% (BldA) [Mass fraction] 99 % Dr. Vinny Atkinson Work Phone: [facility] 01-19-2023 15:47-0500 Systolic blood pressure 127 mm[Hg] Dr. Vinny Atkinson Work Phone: [facility] 01-19-2023 15:28-0500 Body height 170.[address] Vinny Atkinson Work Phone: [facility] 01-19-2023 15:28-0500 Body weight 78.[address] Vinny Atkinson Work Phone: [facility] 01-19-2023 06:00-0500 Body mass index (BMI) [Ratio] 27.1 kg/m2 Dr. Vinny Atkinson Work Phone: [facility] 01-17-2023 22:04-0500 Body temperature 97.8 [degF] Dr. Vinny Atkinson Work Phone: [facility] 01-17-2023 22:04-0500 Diastolic blood pressure 47 mm[Hg] Dr. Vinny Atkinson Work Phone: [facility] 01-17-2023 22:04-0500 Heart rate 74 /min Dr. Vinny Atkinson Work Phone: [facility] 01-17-2023 22:04-0500 Respiratory rate 18 /min Dr. Vinny Atkinson Work Phone: [facility] 01-17-2023 22:04-0500 SaO2% (BldA) [Mass fraction] 99 % Dr. Vinny Atkinson Work Phone: [facility] 01-17-2023 22:04-0500 Systolic blood pressure 106 mm[Hg] Dr. Vinny Atkinson Work Phone: [facility] 01-17-2023 16:23-0500 Body height 170.[address] Vinny Atkinson Work Phone: [facility] 01-17-2023 16:23-0500 Body mass index (BMI) [Ratio] 26.9 kg/m2 Dr. Vinny Atkinson Work Phone: [facility] 01-17-2023 16:23-0500 Body weight 78.[address] Vinny Atkinson Work Phone: [facility] 01-16-2023 22:30-0500 Body mass index (BMI) [Ratio] 28.8 kg/m2 Dr. Vinny Atkinson Work Phone: [facility] 01-15-2023 10:51-0500 Body height 170.2 cm Kelby Chance APRN-DEBURRER MACHINE Work Phone: [facility] 01-15-2023 10:51-0500 Body mass index (BMI) [Ratio] 27.41 kg/m2 Kelby Chance APRN-DEBURRER MACHINE Work Phone: [facility] 01-15-2023 10:51-0500 Body temperature 97.9 [degF] Kelby Chance APRN-[employer]RER MACHINE Work Phone: [facility] 01-15-2023 10:51-0500 Body weight 79.38 kg Kelby Chance APRN-DEBURRER MACHINE Work Phone: [facility] 01-15-2023 10:51-0500 Diastolic blood pressure 54 mm[Hg] Kelby Chance MACHINE ADJUSTER LEADER CASE [employer]IM-[employer] MACHINE Work Phone: [facility] 01-15-2023 10:51-0500 Heart rate 69 /min Kelby Chance MACHINE ADJUSTER LEADER CASE TRIM-[employer]RER MACHINE Work Phone: [facility] 01-15-2023 10:51-0500 Respiratory rate 16 /min Kelby Chance MACHINE ADJUSTER LEADER CASE [employer]IM-[employer]ER MACHINE Work Phone: [facility] 01-15-2023 10:51-0500 SaO2% (BldA) [Mass fraction] 100 % Kelby Chance MACHINE ADJUSTER LEADER CASE TRIM-[employer]RER MACHINE Work Phone: [facility] 01-15-2023 10:51-0500 Systolic blood pressure 116 mm[Hg] Kelby Chance MACHINE ADJUSTER LEADER CASE [employer]IM-[employer]RER MACHINE Work Phone: [facility] 12-20-2022 08:35-0500 Body mass index (BMI) [Ratio] 28.8 kg/m2 Dr. Vinny Atkinson Work Phone: [facility] 11-27-2022 13:21-0500 Body height 170.[address] Vinny Atkinson Work Phone: [facility] 11-27-2022 13:21-0500 Body mass index (BMI) [Ratio] 26 kg/m2 Dr. Vinny Atkinson Work Phone: [facility] 11-27-2022 13:21-0500 Body weight 75.[address] Vinny Atkinson Work Phone: [facility] 11-27-2022 13:21-0500 Diastolic blood pressure 60 mm[Hg] Dr. Vinny Atkinson Work Phone: [facility] 11-27-2022 13:21-0500 Heart rate 72 /min Dr. Vinny Atkinson Work Phone: [facility] 11-27-2022 13:21-0500 Respiratory rate 16 /min Dr. Vinny Atkinson Work Phone: [facility] 11-27-2022 13:21-0500 Systolic blood pressure 110 mm[Hg] Dr. Vinny Atkinson Work Phone: [facility] 11-19-2022 04:08-0500 Body mass index (BMI) [Ratio] 28.8 kg/m2 Dr. Vinny Atkinson Work Phone: [facility] 10-19-2022 00:35-0500 Body mass index (BMI) [Ratio] 28.8 kg/m2 Dr. Vinny Atkinson Work Phone: [facility] 10-16-2022 12:06-0500 Body mass index (BMI) [Ratio] 25.8 kg/m2 Dr. Vinny Atkinson Work Phone: [facility] 10-16-2022 12:06-0500 Diastolic blood pressure 42 mm[Hg] Dr. Vinny Atkinson Work Phone: [facility] 10-16-2022 12:06-0500 Systolic blood pressure 100 mm[Hg] Dr. Vinny Atkinson Work Phone: [facility] 10-16-2022 11:16-0500 Body temperature 98.2 [degF] Dr. Vinny Atkinson Work Phone: [facility] 10-16-2022 11:16-0500 Body weight 74.[address] Vinny Atkinson Work Phone: [facility] 10-16-2022 11:16-0500 Heart rate 87 /min Dr. Vinny Atkinson Work Phone: [facility] 10-16-2022 11:16-0500 Respiratory rate 16 /min Dr. Vinny Atkinson Work Phone: [facility] 10-16-2022 11:16-0500 SaO2% (BldA) [Mass fraction] 97 % Dr. Vinny Atkinson Work Phone: [facility] 09-27-2022 08:33-0500 Body mass index (BMI) [Ratio] 25.3 kg/m2 Dr. Vinny Atkinson Work Phone: [facility] 09-27-2022 08:33-0500 Body weight 73.[address] Vinny Atkinson Work Phone: [facility] 09-27-2022 08:33-0500 Diastolic blood pressure 64 mm[Hg] Dr. Vinny Atkinson Work Phone: [facility] 09-27-2022 08:33-0500 Heart rate 70 /min Dr. Vinny Atkinson Work Phone: [facility] 09-27-2022 08:33-0500 SaO2% (BldA) [Mass fraction] 98 % Dr. Vinny Atkinson Work Phone: [facility] 09-27-2022 08:33-0500 Systolic blood pressure 108 mm[Hg] Dr. Vinny Atkinson Work Phone: [facility] 09-19-2022 00:10-0400 Body mass index (BMI) [Ratio] 28.8 kg/m2 Dr. Vinny Atkinson Work Phone: [facility] 08-18-2022 22:00-0400 Body mass index (BMI) [Ratio] 28.8 kg/m2 Dr. Vinny Atkinson Work Phone: [facility] 07-19-2022 23:22-0400 Body mass index (BMI) [Ratio] 28.8 kg/m2 Dr. Vinny Atkinson Work Phone: [facility] Work Phone: 07-18-2022 11:07-0400 Heart rate 72 /min Dr. Vinny Atkinson Work Phone: [facility] Work Phone: 07-18-2022 09:12-0400 Body temperature 97.9 [degF] Dr. Vinny Atkinson Work Phone: [facility] Work Phone: 07-18-2022 09:12-0400 Diastolic blood pressure 58 mm[Hg] Dr. Vinny Atkinson Work Phone: [facility] Work Phone: 07-18-2022 09:12-0400 Respiratory rate 14 /min Dr. Vinny Atkinson Work Phone: [facility] Work Phone: 07-18-2022 09:12-0400 SaO2% (BldA) [Mass fraction] 93 % Dr. Vinny Atkinson Work Phone: [facility] Work Phone: 07-18-2022 09:12-0400 Systolic blood pressure 121 mm[Hg] Dr. Vinny Atkinson Work Phone: [facility] Work Phone: 07-18-2022 03:58-0400 Body weight 72.[address] Vinny Atkinson Work Phone: [facility] Work Phone: 07-16-2022 13:00-0400 Body height 170.[address] Vinny Atkinson Work Phone: [facility] Work Phone: 07-16-2022 13:00-0400 Body mass index (BMI) [Ratio] 25.4 kg/m2 Dr. Vinny Atkinson Work Phone: [facility] Work Phone: 07-15-2022 19:00-0400 Body temperature 98.3 [degF] Dr. Vinny Atkinson Work Phone: [facility] Work Phone: 07-15-2022 19:00-0400 Diastolic blood pressure 59 mm[Hg] Dr. Vinny Atkinson Work Phone: [facility] Work Phone: 07-15-2022 19:00-0400 Heart rate 74 /min Dr. Vinny Atkinson Work Phone: [facility] Work Phone: 07-15-2022 19:00-0400 Respiratory rate 18 /min Dr. Vinny Atkinson Work Phone: [facility] Work Phone: 07-15-2022 19:00-0400 SaO2% (BldA) [Mass fraction] 99 % Dr. Vinny Atkinson Work Phone: [facility] Work Phone: 07-15-2022 19:00-0400 Systolic blood pressure 113 mm[Hg] Dr. Vinny Atkinson Work Phone: [facility] Work Phone: 07-15-2022 11:47-0400 Body height 170.[address] Vinny Atkinson Work Phone: [facility] Work Phone: 07-15-2022 11:47-0400 Body mass index (BMI) [Ratio] 27.1 kg/m2 Dr. Vinny Atkinson Work Phone: [facility] Work Phone: 07-15-2022 11:47-0400 Body weight 78.[address] Vinny Atkinson Work Phone: [facility] Work Phone: 07-14-2022 11:12-0400 Body height 170.2 cm Vaishnavi Ang DO Work Phone: [facility] 07-14-2022 11:12-0400 Body mass index (BMI) [Ratio] 25.87 kg/m2 Vaishnavi Joseka DO Work Phone: [facility] 07-14-2022 11:12-0400 Body temperature 98.1 [degF] Vaishnavi Bellaashkanavril DO Work Phone: [facility] 07-14-2022 11:12-0400 Body weight 74.93 kg Vaishnavi Fry DO Work Phone: [facility] 07-14-2022 11:12-0400 Diastolic blood pressure 59 mm[Hg] Vaishnavi Garciaka DO Work Phone: [facility] 07-14-2022 11:12-0400 Heart rate 71 /min Vaishnavi Blancootka DO Work Phone: [facility] 07-14-2022 11:12-0400 Respiratory rate 16 /min Vaishnavi Garciaka DO Work Phone: [facility] 07-14-2022 11:12-0400 SaO2% (BldA) [Mass fraction] 99 % Vaishnavi Garciaka DO Work Phone: [facility] 07-14-2022 11:12-0400 Systolic blood pressure 103 mm[Hg] Vaishnavi Fry DO Work Phone: [facility] 06-18-2022 02:49-0400 Body mass index (BMI) [Ratio] 28.8 kg/m2 Dr. Vinny Atkinson Work Phone: [facility] Work Phone: 06-06-2022 14:06-0400 Body mass index (BMI) [Ratio] 24 kg/m2 Dr. Vinny Atkinson Work Phone: [facility] Work Phone: 06-06-2022 14:06-0400 Body temperature 98.2 [degF] Dr. Vinny Atkinson Work Phone: [facility] Work Phone: 06-06-2022 14:06-0400 Body weight 69.[address] Vinny Atkinson Work Phone: [facility] Work Phone: 06-06-2022 14:06-0400 Diastolic blood pressure 61 mm[Hg] Dr. Vinny Atkinson Work Phone: [facility] Work Phone: 06-06-2022 14:06-0400 Heart rate 69 /min Dr. Vinny Atkinson Work Phone: [facility] Work Phone: 06-06-2022 14:06-0400 Respiratory rate 18 /min Dr. Vinny Atkinson Work Phone: [facility] Work Phone: 06-06-2022 14:06-0400 SaO2% (BldA) [Mass fraction] 98 % Dr. Vinny Atkinson Work Phone: [facility] Work Phone: 06-06-2022 14:06-0400 Systolic blood pressure 123 mm[Hg] Dr. Vinny Atkinson Work Phone: [facility] Work Phone: 05-23-2022 10:47-0400 Body mass index (BMI) [Ratio] 23.8 kg/m2 Dr. Vinny Atkinson Work Phone: [facility] Work Phone: 05-23-2022 10:47-0400 Body temperature 98.6 [degF] Dr. Vinny Atkinson Work Phone: [facility] Work Phone: 05-23-2022 10:47-0400 Body weight 68.[address] Vinny Atkinson Work Phone: [facility] Work Phone: 05-23-2022 10:47-0400 Diastolic blood pressure 54 mm[Hg] Dr. Vinny Atkinson Work Phone: [facility] Work Phone: 05-23-2022 10:47-0400 Heart rate 78 /min Dr. Vinny Atkinson Work Phone: [facility] Work Phone: 05-23-2022 10:47-0400 Respiratory rate 17 /min Dr. Vinny Atkinson Work Phone: [facility] Work Phone: 05-23-2022 10:47-0400 SaO2% (BldA) [Mass fraction] 98 % Dr. Vinny Atkinson Work Phone: [facility] Work Phone: 05-23-2022 10:47-0400 Systolic blood pressure 122 mm[Hg] Dr. Vinny Atkinson Work Phone: [facility] Work Phone: 05-19-2022 07:22-0400 Body mass index (BMI) [Ratio] 28.8 kg/m2 Dr. Vinny Atkinson Work Phone: [facility] Work Phone: 05-08-2022 15:37-0400 Body height 170.[address] Vinny Atkinson Work Phone: [facility] Work Phone: 05-08-2022 15:37-0400 Body mass index (BMI) [Ratio] 24.5 kg/m2 Dr. Vinny Atkinson Work Phone: [facility] Work Phone: 05-08-2022 15:37-0400 Body weight 71.[address] Vinny Atkinson Work Phone: [facility] Work Phone: 05-08-2022 15:37-0400 Diastolic blood pressure 56 mm[Hg] Dr. Vinny Atkinson Work Phone: [facility] Work Phone: 05-08-2022 15:37-0400 Heart rate 80 /min Dr. Vinny Atkinson Work Phone: [facility] Work Phone: 05-08-2022 15:37-0400 Respiratory rate 16 /min Dr. Vinny Atkinson Work Phone: [facility] Work Phone: 05-08-2022 15:37-0400 Systolic blood pressure 124 mm[Hg] Dr. Vinny Atkinson Work Phone: [facility] Work Phone: 04-24-2022 14:04-0400 Body temperature 98.5 [degF] Dr. Vinny Atkinson Work Phone: [facility] Work Phone: 04-24-2022 14:04-0400 Diastolic blood pressure 52 mm[Hg] Dr. Vinny Atkinson Work Phone: [facility] Work Phone: 04-24-2022 14:04-0400 Heart rate 72 /min Dr. Vinny Atkinson Work Phone: [facility] Work Phone: 04-24-2022 14:04-0400 Respiratory rate 17 /min Dr. Vinny Atkinson Work Phone: [facility] Work Phone: 04-24-2022 14:04-0400 SaO2% (BldA) [Mass fraction] 97 % Dr. Vinny Atkinson Work Phone: [facility] Work Phone: 04-24-2022 14:04-0400 Systolic blood pressure 116 mm[Hg] Dr. Vinny Atkinson Work Phone: [facility] Work Phone: 04-18-2022 20:58-0400 Body mass index (BMI) [Ratio] 28.8 kg/m2 Dr. Vinny Atkinson Work Phone: [facility] Work Phone: 04-08-2022 06:33-0400 Heart rate 96 /min Dr. Vinny Atkinson Work Phone: [facility] Work Phone: 04-08-2022 06:33-0400 SaO2% (BldA) [Mass fraction] 96 % Dr. Vinny Atkinson Work Phone: [facility] Work Phone: 04-08-2022 05:42-0400 Body height 170.[address] Vinny Atkinson Work Phone: [facility] Work Phone: 04-08-2022 05:42-0400 Body mass index (BMI) [Ratio] 24.1 kg/m2 Dr. Vniny Atkinson Work Phone: [facility] Work Phone: 04-08-2022 05:42-0400 Body temperature 97.9 [degF] Dr. Vinny Atkinson Work Phone: [facility] Work Phone: 04-08-2022 05:42-0400 Body weight [address] Vinny Atkinson Work Phone: [facility] Work Phone: 04-08-2022 05:42-0400 Diastolic blood pressure 47 mm[Hg] Dr. Vinny Atkinson Work Phone: [facility] Work Phone: 04-08-2022 05:42-0400 Respiratory rate 20 /min Dr. Vinny Atkinson Work Phone: [facility] Work Phone: 04-08-2022 05:42-0400 Systolic blood pressure 109 mm[Hg] Dr. Vinny Atkinson Work Phone: [facility] Work Phone: 04-06-2022 14:15-0400 Body temperature 97.6 [degF] Dr. Vinny Atkinson Work Phone: [facility] Work Phone: 04-06-2022 14:15-0400 Diastolic blood pressure 41 mm[Hg] Dr. Vinny Atkinson Work Phone: [facility] Work Phone: 04-06-2022 14:15-0400 Heart rate 70 /min Dr. Vinny Atkinson Work Phone: [facility] Work Phone: 04-06-2022 14:15-0400 Respiratory rate 16 /min Dr. Vinny Atkinson Work Phone: [facility] Work Phone: 04-06-2022 14:15-0400 SaO2% (BldA) [Mass fraction] 98 % Dr. Vinny Atkinson Work Phone: [facility] Work Phone: 04-06-2022 14:15-0400 Systolic blood pressure 103 mm[Hg] Dr. Vinny Atkinson Work Phone: [facility] Work Phone: 04-06-2022 06:00-0400 Body weight 68.[address] Vinny Atkinson Work Phone: [facility] Work Phone: 04-04-2022 14:50-0400 Body height 170.[address] Vinny Atkinson Work Phone: [facility] Work Phone: 04-04-2022 09:01-0400 Body mass index (BMI) [Ratio] 24 kg/m2 Dr. Vinny Atkinson Work Phone: [facility] Work Phone: 03-19-2022 03:35-0400 Body mass index (BMI) [Ratio] 28.8 kg/m2 Dr. Vinny Atkinson Work Phone: [facility] Work Phone: 02-17-2022 02:42-0400 Body mass index (BMI) [Ratio] 28.8 kg/m2 Dr. Vinny Atkinson Work Phone: [facility] Work Phone: 02-16-2022 13:47-0400 Body height 170.[address] Vinny Atkinson Work Phone: [facility] Work Phone: 02-16-2022 13:47-0400 Body weight 72.[address] Vinny Atkinson Work Phone: [facility] Work Phone: 02-16-2022 13:47-0400 Heart rate 71 /min Dr. Vinny Atkinson Work Phone: [facility] Work Phone: 02-16-2022 13:47-0400 SaO2% (BldA) [Mass fraction] 94 % Dr. Vinny Atkinson Work Phone: [facility] Work Phone: 02-01-2022 08:44-0400 Body mass index (BMI) [Ratio] 22.5 kg/m2 Dr. Vinny Atkinson Work Phone: [facility] Work Phone: 02-01-2022 08:44-0400 Body weight 71.[address] Vinny Atkinson Work Phone: [facility] Work Phone: 02-01-2022 08:44-0400 Diastolic blood pressure 58 mm[Hg] Dr. Vinny Atkinson Work Phone: [facility] Work Phone: 02-01-2022 08:44-0400 Heart rate 69 /min Dr. Vinny Atkinson Work Phone: [facility] Work Phone: 02-01-2022 08:44-0400 Respiratory rate 18 /min Dr. Vinny Atkinson Work Phone: [facility] Work Phone: 02-01-2022 08:44-0400 Systolic blood pressure 114 mm[Hg] Dr. Vinny Atkinson Work Phone: [facility] Work Phone: 02-01-2022 08:44-0400 Body mass index (BMI) [Ratio] 22.5 kg/m2 Dr. Vinny Atkinson Work Phone: [facility] Work Phone: 02-01-2022 08:44-0400 Body weight 71.[address] Vinny Atkinson Work Phone: [facility] Work Phone: 02-01-2022 08:44-0400 Diastolic blood pressure 58 mm[Hg] Dr. Vinny Atkinson Work Phone: [facility] Work Phone: 02-01-2022 08:44-0400 Heart rate 69 /min Dr. Vinny Atkinson Work Phone: [facility] Work Phone: 02-01-2022 08:44-0400 Respiratory rate 18 /min Dr. Vinny Atkinson Work Phone: [facility] Work Phone: 02-01-2022 08:44-0400 Systolic blood pressure 114 mm[Hg] Dr. Vinny Atkinson Work Phone: [facility] Work Phone: 01-26-2022 13:40-0500 Diastolic blood pressure 66 mm[Hg] Dr. Vinny Atkinson Work Phone: [facility] Work Phone: 01-26-2022 13:40-0500 Heart rate 70 /min Dr. Vinny Atkinson Work Phone: [facility] Work Phone: 01-26-2022 13:40-0500 Respiratory rate 16 /min Dr. Vinny Atkinson Work Phone: [facility] Work Phone: 01-26-2022 13:40-0500 SaO2% (BldA) [Mass fraction] 97 % Dr. Vinny Atkinson Work Phone: [facility] Work Phone: 01-26-2022 13:40-0500 Systolic blood pressure 131 mm[Hg] Dr. Vinny Atkinson Work Phone: [facility] Work Phone: 01-26-2022 12:40-0500 Diastolic blood pressure 66 mm[Hg] Dr. Vinny Atkinson Work Phone: [facility] Work Phone: 01-26-2022 12:40-0500 Heart rate 70 /min Dr. Vinny Atkinson Work Phone: [facility] Work Phone: 01-26-2022 12:40-0500 Respiratory rate 16 /min Dr. Vinny Atkinson Work Phone: [facility] Work Phone: 01-26-2022 12:40-0500 SaO2% (BldA) [Mass fraction] 97 % Dr. Vinny Atkinson Work Phone: [facility] Work Phone: 01-26-2022 12:40-0500 Systolic blood pressure 131 mm[Hg] Dr. Vinny Atkinson Work Phone: [facility] Work Phone: 01-17-2022 09:51-0500 Body mass index (BMI) [Ratio] 28.8 kg/m2 Dr. Vinny Atkinson Work Phone: [facility] Work Phone: 01-17-2022 08:51-0500 Body mass index (BMI) [Ratio] 28.8 kg/m2 Dr. Vinny Atkinson Work Phone: [facility] Work Phone: 01-12-2022 12:48-0500 Body temperature 97.6 [degF] Dr. Vinny Atkinson Work Phone: [facility] Work Phone: 01-12-2022 12:48-0500 Diastolic blood pressure 55 mm[Hg] Dr. Vinny Atkinson Work Phone: [facility] Work Phone: 01-12-2022 12:48-0500 Heart rate 72 /min Dr. Vinny Atkinson Work Phone: [facility] Work Phone: 01-12-2022 12:48-0500 Respiratory rate 18 /min Dr. Vinny Atkinson Work Phone: [facility] Work Phone: 01-12-2022 12:48-0500 SaO2% (BldA) [Mass fraction] 100 % Dr. Vinny Atkinson Work Phone: [facility] Work Phone: 01-12-2022 12:48-0500 Systolic blood pressure 134 mm[Hg] Dr. Vinny Atkinson Work Phone: [facility] Work Phone: 01-12-2022 05:00-0500 Body weight 73.[address] Vinny Atkinson Work Phone: [facility] Work Phone: 01-10-2022 14:05-0500 Body mass index (BMI) [Ratio] 23 kg/m2 Dr. Vinny Atkinson Work Phone: [facility] Work Phone: 01-10-2022 13:48-0500 Inhaled oxygen concentration 100 % Dr. Vinny Atkinson Work Phone: [facility] Work Phone: 01-09-2022 19:31-0500 Diastolic blood pressure 66 mm[Hg] Dr. Vinny Atkinson Work Phone: [facility] Work Phone: 01-09-2022 19:31-0500 Systolic blood pressure 150 mm[Hg] Dr. Vinny Atkinson Work Phone: [facility] Work Phone: 01-09-2022 07:57-0500 Heart rate 75 /min Dr. Vinny Atkinson Work Phone: [facility] Work Phone: 01-09-2022 07:57-0500 SaO2% (BldA) [Mass fraction] 98 % Dr. Vinny Atkinson Work Phone: [facility] Work Phone: 12-20-2021 00:26-0500 Body mass index (BMI) [Ratio] 28.8 kg/m2 Dr. Vinny Atkinson Work Phone: [facility] Work Phone: 12-15-2021 11:30-0500 Body mass index (BMI) [Ratio] 24.3 kg/m2 Dr. Vinny Atkinson Work Phone: [facility] Work Phone: 12-15-2021 11:30-0500 Body temperature 96.7 [degF] Dr. Vinny Atkinson Work Phone: [facility] Work Phone: 12-15-2021 11:30-0500 Body weight 70.[address] Vinny Atkinson Work Phone: [facility] Work Phone: 12-15-2021 11:30-0500 Diastolic blood pressure 71 mm[Hg] Dr. Vinny Atkinson Work Phone: [facility] Work Phone: 12-15-2021 11:30-0500 Heart rate 70 /min Dr. Vinny Atkinson Work Phone: [facility] Work Phone: 12-15-2021 11:30-0500 Respiratory rate 20 /min Dr. Vinny Atkinson Work Phone: [facility] Work Phone: 12-15-2021 11:30-0500 SaO2% (BldA) [Mass fraction] 97 % Dr. Vinny Atkinson Work Phone: [facility] Work Phone: 12-15-2021 11:30-0500 Systolic blood pressure 136 mm[Hg] Dr. Vinny Atkinson Work Phone: [facility] Work Phone: 11-20-2021 03:36-0500 Body mass index (BMI) [Ratio] 28.8 kg/m2 Dr. Vinny Atkinson Work Phone: [facility] Work Phone: 10-31-2021 12:56-0500 Body mass index (BMI) [Ratio] 25.7 kg/m2 Dr. Vinny Atkinson Work Phone: [facility] Work Phone: 10-31-2021 12:56-0500 Body weight 74.[address] Vinyn Atkinson Work Phone: [facility] Work Phone: 10-31-2021 12:56-0500 Diastolic blood pressure 58 mm[Hg] Dr. Vinny Atkinson Work Phone: [facility] Work Phone: 10-31-2021 12:56-0500 Heart rate 72 /min Dr. Vinny Atkinson Work Phone: [facility] Work Phone: 10-31-2021 12:56-0500 Respiratory rate 16 /min Dr. Vinny Atkinson Work Phone: [facility] Work Phone: 10-31-2021 12:56-0500 Systolic blood pressure 144 mm[Hg] Dr. Vinny Atkinson Work Phone: [facility] Work Phone: 08-18-2021 21:58-0400 Body mass index (BMI) [Ratio] 28.8 kg/m2 Dr. Vinny Atkinson Work Phone: [facility] Work Phone: 05-19-2021 14:32-0400 Body mass index (BMI) [Ratio] 29.2 kg/m2 Dr. Vinny Atkinson Work Phone: [facility] Work Phone: 12-14-2020 14:51-0500 Body mass index (BMI) [Ratio] 29 kg/m2 Dr. Vinny Atkinson Work Phone: [facility] 12-14-2020 14:51-0500 Body temperature 97.6 [degF] Dr. Vinny Atkinson Work Phone: [facility] 12-14-2020 14:51-0500 Body weight 84.[address] Vinny Atkinson Work Phone: [facility] Work Phone: 12-14-2020 14:51-0500 Diastolic blood pressure 64 mm[Hg] Dr. Vinny Atkinson Work Phone: [facility] 12-14-2020 14:51-0500 Heart rate 70 /min Dr. Vinny Atkinson Work Phone: [facility] 12-14-2020 14:51-0500 Respiratory rate 16 /min Dr. Vinny Atkinson Work Phone: [facility] 12-14-2020 14:51-0500 SaO2% (BldA) [Mass fraction] 100 % Dr. Vinny Atkinson Work Phone: [facility] 12-14-2020 14:51-0500 Systolic blood pressure 154 mm[Hg] Dr. Vinny Atkinson Work Phone: [facility] 07-16-2017 16:22-0400 BMI (Body Mass Index) 28.35 kg/m2 Meron Cohen RN [facility] Work Phone: 07-16-2017 16:22-0400 BP Diastolic 56 [...] Date Encounter Type Care Provider Facility Start: 08-06-2025 ambulatory Constantino QUIÑONES Facility:[facility] Start: 08-04-2025 ambulatory [facility] Facility: [facility] Start: 08-03-2025 ambulatory Constantino cabral OLS Facility:[facility] Start: 07-31-2025 End: 07-31-2025 Telephone encounter Ligia Fuentes MD Work Phone: [facility] Comment on above: Results Start: 07-30-2025 ambulatory Constantino cabral OLS Facility:[facility] Start: 07-29-2025 End: 07-29-2025 ambulatory [facility] of [facility]ious Disease Comment on above: [facility] Management Start: 07-28-2025 ambulatory Constantino cabral OLS Facility:[facility] Start: 07-27-2025 End: 07-27-2025 Telephone encounter Ligia Fuentes MD Work Phone: [facility] Comment on above: Results Start: 07-27-2025 ambulatory Isabelaritu cabral OLS Facility:[facility] Start: 07-23-2025 ambulatory Isabelaritu Shant marianna OLS Facility:[facility] Start: 07-23-2025 Constantino Ham Start: 07-22-2025 End: 07-22-2025 Telephone encounter Ligia Fuentes MD Work Phone: [facility] Comment on above: Results Start: 07-21-2025 ambulatory Isabelaritu Shant he OLS Facility:[facility] Start: 07-21-2025 Constantino Ham Start: 07-20-2025 Constantino cabral MD [facility] Start: 07-20-2025 ambulatory Jacksonsally Shant marianna OLS Facility:[facility] Start: 07-17-2025 ambulatory Constantino cabral OLS Facility:[facility] Start: 07-17-2025 Constantino Ham Start: 07-16-2025 End: 07-16-[address] Castro Ferrara DO Work Phone: [facility] Start: 07-16-2025 End: 07-16-2025 Silvina GARCIAC -[facility] Work Phone: Start: 07-01-2025 End: 07-01-2025 ambulatory Kirsten Angeles PA-C Work Phone: [facility] Comment on above: CoPat Start Start: 06-24-2025 End: 07-15-2025 Evaluation and management of inpatient REMUS A UNGUR Facility:[facility] Start: 06-23-2025 End: 06-24-2025 Dr. Castro Ferrara DO Work Phone: -Emergency Department Work Phone: Start: 06-23-2025 End: 06-24-2025 Emergency department patient visit Dr. Castro Ferrara DO Work Phone: -Emergency Department Start: 06-22-2025 ambulatory Casrto Ferrara Facility: [facility] Start: 06-22-2025 Dr. Castro moy DO -[facility] Work Phone: Start: 06-17-2025 ambulatory Esa Ansari Facility:[facility] Start: 06-14-2025 End: 06-14-2025 Dr. Castro Ferrara DO Work Phone: -Emergency Department Work Phone: Start: 06-14-2025 End: 06-14-2025 Emergency department patient visit Dr. Castro Ferrara DO Work Phone: -Emergency Department Start: 06-11-2025 End: 06-11-[address] Castro Ferrara DO Work Phone: -Laboratory Start: 06-11-2025 End: 06-11-2025 Jane KEMP -Laboratory Work Phone: Start: 06-10-2025 End: 06-11-2025 ambulatory Jane KEMP Facility:[facility] Start: 06-10-2025 Dr. Castro moy DO -[facility] Work Phone: Start: 06-08-2025 ambulatory Castro Ferrara Facility: [facility] Start: 06-08-2025 Dr. Castro moy DO -[facility] Work Phone: Start: 06-01-2025 ambulatory [facility] Facility:[facility] Start: 06-01-2025 Dr. Karthikeyan Turner MD -[facility] Start: 05-29-2025 ambulatory [facility] Facility: [facility] Start: 05-29-2025 Dr. Castro moy DO -[facility] Work Phone: Start: 05-27-2025 End: 05-27-[address] Castro Ferrara DO Work Phone: [facility] Start: 05-27-2025 End: 05-27-2025 Dr. Karthikeyan Turner MD -[facility] Work Phone: Start: 05-27-2025 ambulatory Castro Josias Facility: [facility] Start: 05-27-2025 Dr. Castro moy DO -[facility] Work Phone: Start: 05-25-2025 ambulatory [facility] Facility: [facility] Start: 05-25-2025 Dr. Castro moy DO -[facility] Work Phone: Start: 05-18-2025 ambulatory [facility] Facility: [facility] Start: 05-18-2025 Dr. Castro moy DO -[facility] Work Phone: Start: 05-13-2025 ambulatory Castro Josias Facility: [facility] Start: 05-13-2025 Dr. Castro moy DO -[facility] Work Phone: Start: 05-11-2025 ambulatory [facility] Facility: [facility] Start: 05-11-2025 Dr. Castro moy DO -[facility] Work Phone: Start: 05-07-2025 ambulatory [facility] Facility[facility] Start: 05-07-2025 Dr. Castro moy DO -[facility] Work Phone: Start: 05-04-2025 ambulatory [facility] Facility: [facility] Start: 05-04-2025 Dr. Castro moy DO -[facility] Work Phone: Start: 04-29-2025 End: 04-29-[address] Castro Ferrara DO Work Phone: [facility] Work Phone: Start: 04-29-2025 End: 04-29-2025 Dr. Castro Ferrara DO -[facility] Work Phone: Start: 04-28-2025 End: 04-29-2025 ambulatory Castro Josias Facility:[facility] Start: 04-28-2025 Dr. Castro moy DO -[facility] Work Phone: Start: 04-27-2025 [facility] Start: 04-27-2025 Dr. Castro moy DO -[facility] Work Phone: Start: 04-20-2025 ambulatory Castro Josias [facility] Start: 04-20-2025 Dr. Castro moy DO [facility] Work Phone: Start: 04-18-2025 End: 04-18-2025 Dr. Castro Ferrara DO Work Phone: -Emergency Department Work Phone: Start: 04-18-2025 End: 04-18-2025 Emergency department patient visit Dr. Castro Ferrara DO Work Phone: [facility] Work Phone: Start: 04-15-2025 End: 04-15-2025 Office outpatient visit 25 minutes Vaishnavi Fry DO Work Phone: [facility]enterology [facility] Hepatology [facility] Comment on above: Other cirrhosis of l iver (Primary Dx); Hepatic encephalopathy; Metabolic dysfunction-associated steatohepatitis (MASH) Start: 04-15-2025 ambulatory SELF SELF Facility:[facility] Start: 04-13-2025 ambulatory [facility] Facility: [facility] Start: 04-13-2025 Dr. Castro moy [facility] Work Phone: Start: 04-08-2025 ambulatory Vaishnavi Bob Facility: [facility] Start: 04-08-2025 End: 04-08-[address] Castro Ferrara DO Work Phone: [facility] Work Phone: Start: 04-08-2025 End: 04-08-2025 Sue Roberts DOG CONTROL OFFICER-C -Pulmonary Services/Neurology Work Phone: Start: 04-08-2025 End: 04-08-2025 ambulatory Sue Roberts NP Facility:[facility] Start: 04-06-2025 ambulatory Castro Josias Facility: [facility] Start: 04-06-2025 Dr. Castro moy DO -[facility] Work Phone: Start: 03-30-2025 ambulatory Castro Ferrara Facility: [facility] Start: 03-30-2025 Dr. Castro moy -[facility] Work Phone: Start: 03-25-2025 End: 03-25-2025 Sue Roberts DOG CONTROL OFFICER-C -[facility] Work Phone: Start: 03-25-2025 End: 03-25-2025 ambulatory Castro Ferrara Facility:[facility] Start: 03-23-2025 End: 03-23-[address] Castro Ferrara DO Work Phone: [facility] Work Phone: Start: 03-23-2025 End: 03-23-2025 Vaishnavi Bob DOG CONTROL OFFICER-C -Cat Scan, [facility] Work Phone: Start: 03-23-2025 ambulatory Castro Ferrara Facility: [facility] Start: 03-23-2025 Dr. Castro moy -[facility] Work Phone: Start: 03-23-2025 End: 03-23-2025 ambulatory Vaishnavi Bob Facility:[facility] Start: 03-17-2025 End: 03-17-2025 Vaishnavi Bob DOG CONTROL OFFICER-C -[facility] Work Phone: Start: 03-17-2025 End: 03-17-2025 ambulatory [facility] Facility:[facility] Start: 03-16-2025 ambulatory Castro Murilloman Facility: [facility] Start: 03-16-2025 Dr. Castro moy DO -[facility] Work Phone: Start: 03-12-2025 ambulatory Castro Ferrara Facility: [facility] Start: 03-12-2025 Dr. Castro moy DO -[facility] Work Phone: Start: 03-10-2025 ambulatory Castro Ferrara Facility: [facility] Start: 03-10-2025 Dr. Castro moy DO -[facility] Work Phone: Start: 03-09-2025 ambulatory Castro Ferrara Facility: [facility] Start: 03-09-2025 Dr. Castro moy DO -[facility] Work Phone: Start: 03-06-2025 ambulatory Castro Ferrara Facility: [facility] Start: 03-06-2025 Dr. Castro moy DO -[facility] Work Phone: Start: 02-13-2025 End: 03-06-2025 Evaluation and management of inpatient Fernanda Parra MD Work Phone: [id number] Start: 02-12-2025 End: 02-13-2025 Dr. Castro Ferrara DO Work Phone: -Emergency Department Work Phone: Start: 02-12-2025 End: 02-13-2025 Emergency department patient visit Dr. Castro Ferrara DO Work Phone: [facility] Work Phone: Start: 02-12-2025 End: 02-12-2025 Dr. Castro Ferrara DO -Laboratory Work Phone: Start: 02-11-2025 End: 02-12-2025 ambulatory Castro Josias Facility:[facility] Start: 02-11-2025 Dr. Castro moy DO -[facility] Work Phone: Start: 02-09-2025 ambulatory [facility] Facility: [facility] Start: 02-09-2025 Dr. Castro moy DO -[facility] Work Phone: Start: 02-02-2025 ambulatory [facility] Facility: [facility] Start: 02-02-2025 Dr. Castro moy DO -[facility] Work Phone: Start: 01-28-2025 End: 01-28-2025 ambulatory [facility] Facility:[facility] Start: 01-28-2025 End: 01-28-2025 Dr. Niels Flores MD -[facility] Work Phone: Start: 01-26-2025 ambulatory [facility] Facility: [facility] Start: 01-26-2025 Dr. Castro moy DO -[facility] Work Phone: Start: 01-22-2025 Dr. Bruce Calderon DO -[facility] Work Phone: Start: 01-22-2025 ambulatory [facility] Facility: [facility] Start: 01-19-2025 ambulatory [facility] Facility: [facility] Start: 01-19-2025 Dr. Castro moy DO -[facility] Work Phone: Start: 01-05-2025 ambulatory [facility] Facility: [facility] Start: 01-05-2025 Dr. Castro moy DO -[facility] Work Phone: Start: 01-02-2025 ambulatory [facility] Facility: [facility] Start: 01-02-2025 Dr. Castro moy DO -[facility] Work Phone: Start: 12-31-2024 End: 12-31-2024 Dr. Castro Ferrara DO Work Phone: -[place] Work Phone: Start: 12-31-2024 End: 12-31-2024 ambulatory [facility] Facility:[facility] Start: 12-29-2024 ambulatory [facility] Facility: [facility] Start: 12-29-2024 Dr. Castro moy DO -[facility] Work Phone: Start: 12-24-2024 ambulatory [facility] Facility: [facility] Start: 12-24-2024 Dr. Castro moy DO -[facility] Work Phone: Start: 12-22-2024 ambulatory [facility] Facility: [facility] Start: 12-22-2024 Dr. Castro moy DO -[facility] Work Phone: Start: 12-19-2024 ambulatory [facility] Facility: [facility] Start: 12-19-2024 Dr. Castro moy DO -[facility] Work Phone: Start: 12-18-2024 End: 12-19-2024 Evaluation and management of inpatient Carly Mane MD Work Phone: [id number] Comment on above: Acute candidal endoc arditis Start: 12-17-2024 End: 12-18-2024 Dr. Marquis Gomes DO -Emergency Department Work Phone: Start: 12-17-2024 End: 12-18-2024 Emergency department patient visit [facility] Facility:[facility] Start: 12-16-2024 ambulatory [facility] Facility: [facility] Start: 12-16-2024 Dr. Alonso connor MD -[facility] Start: 12-16-2024 End: 12-16-2024 Dr. Diego Reaves DO -Emergency [facility] Work Phone: Start: 12-16-2024 End: 12-16-2024 Emergency department patient visit [facility] Facility:[facility] Start: 12-15-2024 ambulatory [facility] Facility: [facility] Start: 12-15-2024 Dr. Castro moy DO -[facility] Work Phone: Start: 12-08-2024 ambulatory [facility] Facility: [facility] Start: 12-08-2024 Dr. Castro moy DO -[facility] Work Phone: Start: 12-03-2024 ambulatory [facility] Facility: [facility] Start: 12-03-2024 Dr. Castro moy DO -[facility] Work Phone: Start: 12-01-2024 ambulatory [facility] Facility: [facility] Start: 12-01-2024 Dr. Castro moy DO -[facility] Work Phone: Start: 11-25-2024 End: 11-25-2024 Dr. Timmy Miranda MD -[facility] Work Phone: Start: 11-25-2024 End: 11-25-[facility] Start: 11-24-2024 End: 11-25-[facility]24 [facility] Start: 11-24-2024 Dr. Castro moy DO -[facility] Work Phone: Start: 11-17-2024 ambulatory [facility] Facility: [facility] Start: 11-17-2024 Dr. Castro moy -[facility] Work Phone: Start: 11-03-2024 ambulatory [facility] Facility: [facility] Start: 11-03-2024 Dr. Castro moy DO -[facility] Work Phone: Start: 10-27-2024 ambulatory [facility] Facility: [facility] Start: 10-27-2024 Dr. Castro moy DO -[facility] Work Phone: Start: 10-22-2024 End: 10-22-2024 Office outpatient visit 25 minutes Kelby Chance MACHINE ADJUSTER LEADER CASE TRIM-DEBURRER MACHINE Work Phone: [facility] and Gastrointestinal Surgery [facility] [place] Comment on above: Other cirrhosis of l iver (Primary Dx) Start: 10-22-2024 ambulatory SELF SELF Facility:[facility] Start: 10-20-2024 ambulatory [facility] Facility: [facility] Start: 10-20-2024 Dr. Castro moy -[facility] Work Phone: Start: 10-13-2024 ambulatory [facility] Facility: [facility] Start: 10-08-2024 End: 10-08-2024 ambulatory [facility] Facility:[facility] Start: 10-06-2024 ambulatory [facility]: [facility] Start: 09-29-2024 ambulatory [facility]: [facility] Start: 09-22-2024 ambulatory [facility]: [facility] Start: 09-15-2024 ambulatory [facility]: [facility] Start: 09-08-2024 ambulatory [facility]: [facility] Start: 09-01-2024 ambulatory [facility]: [facility] Start: 08-25-2024 ambulatory [facility]: [facility] Start: 08-18-2024 ambulatory [facility]: [facility] Start: 08-11-2024 ambulatory [facility]: [facility] Start: 04-16-2024 End: 04-16-2024 Office outpatient visit 25 minutes Vaishnavi Fry DO Work Phone: Gastroenterology and Hepatology Outpatient [facility] Comment on above: Other cirrhosis of l iver (Primary Dx) Start: 04-02-2024 End: 04-02-2024 Subsequent hospital visit by physician Ronnie Ferrari MD Work Phone: Cardiology [facility] Comment on above: SSS (sick sinus synd theodora) Start: 03-24-2024 End: 03-24-2024 Subsequent hospital visit by physician Carla ROSE Work Phone: [facility] [place] Start: 12-31-2023 Non-patient / Non-visit Dr. Shailesh Ferrara Work Phone: [facility] Work Phone: Start: 12-26-2023 End: 12-26-[address] Castro Ferrara Work Phone: [facility] Work Phone: Start: 12-26-2023 End: 12-26-[address] Castro Ferrara Work Phone: [facility], [facility] Work Phone: Start: 12-24-2023 Non-patient / Non-visit Dr. Shailesh Ferrara Work Phone: [facility] Work Phone: Start: 12-17-2023 Non-patient / Non-visit Dr. Shailesh Ferrara Work Phone: [facility] Work Phone: Start: 12-12-2023 End: 12-12-[address] Castro Ferrara Work Phone: [facility] Work Phone: Start: 12-10-2023 Non-patient / Non-visit Dr. Shailesh Ferrara Work Phone: [facility] Work Phone: Start: 12-05-2023 End: 12-05-2023 Office outpatient visit 25 minutes [facility] Work Phone: [facility] [place] Comment on above: Other cirrhosis of l iver (Primary Dx); Cirrhosis of liver without ascites, unspecified hepatic cirrhosis type; Frailty; Physical deconditioning Start: 12-03-2023 Non-patient / Non-visit Dr. Shailesh Ferrara Work Phone: [facility] Work Phone: Start: 11-26-2023 Non-patient / Non-visit Dr. Shailesh Ferrara Work Phone: [facility] Work Phone: Start: 11-19-2023 Non-patient / Non-visit Dr. Shailesh Ferrara Work Phone: [facility] Work Phone: Start: 11-12-2023 Non-patient / Non-visit Dr. Shailesh Ferrara Work Phone: [facility] Work Phone: Start: 11-05-2023 Non-patient / Non-visit Dr. Shailesh Ferrara Work Phone: [facility] Work Phone: Start: 10-29-2023 Non-patient / Non-visit [facility]ail[facility]ar [facility] Work Phone: Start: 10-22-2023 Non-patient / Non-visit Dr. Shailesh Ferrara Work Phone: [facility] Work Phone: Start: 10-15-2023 Non-patient / Non-visit Dr. Shailesh Ferrara Work Phone: [facility] Work Phone: Start: 10-08-2023 Non-patient / Non-visit Dr. Shailesh Ferrara Work Phone: [facility] Work Phone: Start: 10-03-2023 End: 10-03-2023 Ashlee Chatman Central Scheduling Start: 10-03-2023 End: 10-03-[address] Castro Ferrara Work Phone: [facility] Start: 10-01-2023 Non-patient / Non-visit Dr. Shailesh Ferrara Work Phone: [facility] Work Phone: Start: 09-24-2023 Non-patient / Non-visit Dr. Shailesh Ferrara Work Phone: [facility] Work Phone: Start: 09-19-2023 End: 09-19-[address] Castro Ferrara Work Phone: [facility] Work Phone: Start: 09-17-2023 Non-patient / Non-visit Dr. Shailesh Murilloman Work Phone: [facility] Work Phone: Start: 09-12-2023 End: 09-12-[address] Castro Ferrara Work Phone: [facility] Work Phone: Start: 09-10-2023 Non-patient / Non-visit Dr. Shailesh Ferrara Work Phone: [facility] Work Phone: Start: 09-03-2023 Non-patient / Non-visit Dr. Shailesh verduzco Josias Work Phone: [facility] Work Phone: Start: 08-27-2023 Non-patient / Non-visit Dr. Shailesh Ferrara Work Phone: [facility] Work Phone: Start: 08-20-2023 Non-patient / Non-visit Dr. Shailesh Ferrara Work Phone: [facility] Work Phone: Start: 08-13-2023 Non-patient / Non-visit Dr. Shailesh Ferrara Work Phone: [facility] Work Phone: Start: 08-07-2023 End: 08-07-[address] Castro Ferrara Work Phone: [facility] Work Phone: Start: 08-06-2023 Non-patient / Non-visit Dr. Shailesh Ferrara Work Phone: [facility] Work Phone: Start: 07-31-2023 End: 07-31-[address] Castro Ferrara Work Phone: [facility] Work Phone: Start: 07-31-2023 End: 07-31-[address] Castro Ferrara Work Phone: [facility] Work Phone: Start: 07-30-2023 Non-patient / Non-visit Dr. Shailesh Ferrara Work Phone: [facility] Work Phone: Start: 07-23-2023 Non-patient / Non-visit Dr. Shailesh Ferrara Work Phone: [facility] Work Phone: Start: 07-16-2023 Non-patient / Non-visit Dr. Shailesh Ferrara Work Phone: [facility] Work Phone: Start: 07-13-2023 End: 07-13-2023 Office outpatient visit 25 minutes Vaishnavi Kaci Garciaavril DO Work Phone: Gastroenterology and Hepatology [facility] Comment on above: Other cirrhosis of l iver (Primary Dx) Start: 07-11-2023 End: 07-11-[address] Castro Ferrara Work Phone: [facility] Work Phone: Start: 07-11-2023 End: 07-11-[address] Castro Ferrara Work Phone: [facility]-Jorge Garciaeyguilherme Tate [facility] Start: 07-09-2023 Non-patient / Non-visit Dr. Shailesh Ferrara Work Phone: [facility] Work Phone: Start: 07-02-2023 Non-patient / Non-visit Dr. Shailesh Ferrara Work Phone: [facility] Work Phone: Start: 06-27-2023 Non-patient / Non-visit Dr. Shailesh Ferrara Work Phone: [facility] Work Phone: Start: 06-25-2023 Non-patient / Non-visit Dr. Shailesh Ferrara Work Phone: [facility] Work Phone: Start: 06-18-2023 Non-patient / Non-visit Dr. Shailesh Ferrara Work Phone: [facility] Work Phone: Start: 06-15-2023 Non-patient / Non-visit Dr. Shailesh Ferrara Work Phone: [facility] Work Phone: Start: 06-11-2023 End: 06-18-[address] Castro Ferrara Work Phone: [facility] Work Phone: Start: 06-11-2023 End: 06-11-[address] Castro Ferrara Work Phone: [facility] Work Phone: Start: 06-08-2023 Non-patient / Non-visit Dr. Shailesh Ferrara Work Phone: [facility] Work Phone: Start: 06-06-2023 Non-patient / Non-visit Dr. Shailesh Ferrara Work Phone: [facility] Work Phone: Start: 06-04-2023 End: 06-04-[address] Castro Ferrara Work Phone: [facility] Work Phone: Start: 06-04-[address] Castro Ferrara Work Phone: [facility] Start: 06-04-2023 Non-patient / Non-visit Dr. Shailesh verduzco Josias Work Phone: [facility] Work Phone: Start: 05-28-2023 Non-patient / Non-visit Dr. Shailesh verduzco Josias Work Phone: [facility] Work Phone: Start: 05-25-2023 Non-patient / Non-visit Dr. Shailesh verduzco [employer] Work Phone: [facility] Work Phone: Start: 05-23-2023 Non-patient / Non-visit Dr. Shailesh verduzco [employer] Work Phone: [facility] Work Phone: Start: 05-21-2023 Non-patient / Non-visit Dr. Shailesh verduzco [employer] Work Phone: [facility] Work Phone: Start: 05-14-2023 Non-patient / Non-visit Dr. Shailesh verduzco [employer] Work Phone: [facility] Work Phone: Start: 05-07-2023 Non-patient / Non-visit Dr. Shailesh verduzco [employer] Work Phone: [facility] Work Phone: Start: 04-30-2023 Non-patient / Non-visit Dr. Shailesh verduzco [employer] Work Phone: [facility] Work Phone: Start: 04-23-2023 Non-patient / Non-visit Dr. Shailesh Ferrara Work Phone: [facility] Work Phone: Start: 04-19-2023 End: 04-19-[address] Castro Ferrara Work Phone: [facility] Work Phone: Start: 04-19-2023 End: 04-19-[address] Castro Ferrara Work Phone: [facility] Work Phone: Start: 04-17-2023 Non-patient / Non-visit Dr. Shailesh Ferrara Work Phone: [facility] Work Phone: Start: 04-16-2023 Non-patient / Non-visit [facility] Shail[facility] Work Phone: Start: 04-09-2023 End: 04-09-[address] Castro Ferrara Work Phone: [facility] Work Phone: Start: 04-09-2023 Non-patient / Non-visit Dr. Shailesh Ferrara Work Phone: [facility] Work Phone: Start: 04-04-2023 End: 04-04-[address] Castro Ferrara Work Phone: [facility] Work Phone: Start: 04-02-2023 End: 04-02-[address] Castro Ferrara Work Phone: [facility] Work Phone: Start: 03-29-2023 End: 03-29-2023 Emergency department patient visit Dr. Castro Ferrara Work Phone: [facility] Work Phone: Start: 03-29-2023 End: 03-29-2023 Dr. Castro Ferrara Work Phone: [facility]-Emergency Department Start: 03-29-2023 Non-patient / Non-visit Dr. Shailesh Ferrara Work Phone: [facility] Start: 03-29-2023 End: 03-29-2023 Admission to same day surgery center Dr. Castro Ferrara Work Phone: [facility]-Floor Sweeper/Special Procedures Start: 03-29-2023 End: 03-29-[address] Castro Ferrara Work Phone: [facility] Work Phone: Start: 03-29-2023 End: 03-29-2023 Dr. Castro Ferrara Work Phone: [facility]-Floor Sweeper/Special Procedures Start: 03-28-2023 End: 03-28-2023 Patient encounter procedure Darrel Garcia MD Work Phone: [facility] Comment on above: Urinary frequency (P rimary Dx) Start: 03-27-2023 End: 03-27-[address] Castro Ferrara Work Phone: [facility] Start: 03-27-2023 End: 03-27-2023 Dr. Castro Ferrara Work Phone: [facility] Start: 03-26-2023 End: 03-26-[address] Castro Ferrara Work Phone: [facility] Gastroenterology Start: 03-26-2023 End: 03-26-2023 Dr. Castro Ferrara Work Phone: [facility]astroenter[facility] Start: 03-19-2023 Non-patient / Non-visit Dr. Shailesh Ferrara Work Phone: [facility] Start: 03-19-2023 Dr. Castro moy Work Phone: [facility] Start: 03-12-2023 Non-patient / Non-visit Dr. Domingo Atkinson Work Phone: [facility] Start: 03-12-2023 Dr. Castro moy Work Phone: [facility] Start: 03-12-2023 End: 03-12-[address] Vinny Atkinson Work Phone: [facility] Work Phone: Start: 03-12-2023 End: 03-12-[address] Vinny Atkinson Work Phone: [facility] Start: 03-12-2023 End: 03-12-2023 Dr. Castro Ferrara Work Phone: [facility] Start: 03-08-2023 End: 03-08-[address] Vinny Atkinson [facility] Start: 03-08-2023 End: 03-08-2023 Dr. Castro Ferrara Work Phone: [facility] Start: 03-05-2023 End: 03-05-[address] Vinny Atkinson Work Phone: [facility] Start: 03-05-2023 End: 03-05-2023 Dr. Castro Ferrara Work Phone: [facility] Start: 03-01-2023 Non-patient / Non-visit Dr. Domingo Atkinson Work Phone: [facility] Start: 03-01-2023 Dr. Castro moy Work Phone: [facility] Start: 02-28-2023 Non-patient / Non-visit Dr. Domingo Atkinson Work Phone: [facility] Start: 02-28-2023 Dr. Castro moy Work Phone: [facility] Start: 02-26-2023 Non-patient / Non-visit Dr. Domingo Atkinson Work Phone: [facility] Start: 02-26-2023 Dr. Castro moy Work Phone: [facility] Start: 02-23-2023 Non-patient / Non-visit Dr. Domingo Atkinson Work Phone: [facility] Start: 02-23-2023 Dr. Castro moy Work Phone: [facility] Start: 02-02-2023 End: 02-16-[address] Vinny Atkinson Work Phone: [facility] Work Phone: Start: 02-02-2023 End: 02-16-[address] Vinny Atkinson Work Phone: [facility] Start: 02-02-2023 End: 02-16-2023 Dr. Castro Ferrara Work Phone: [facility] Start: 01-31-2023 Non-patient / Non-visit Dr. Domingo Atkinson Work Phone: [facility] Start: 01-31-2023 Dr. Castro moy Work Phone: [facility] Start: 01-29-2023 Non-patient / Non-visit Dr. Domingo Atkinson Work Phone: [facility] Start: 01-29-2023 Dr. Castro moy Work Phone: [facility] Start: 01-24-2023 End: 01-24-[address] Vinny Atkinson Work Phone: [facility] Work Phone: Start: 01-24-2023 End: 01-24-[address] Vinny Atkinson Work Phone: [facility] Start: 01-24-2023 End: 01-24-2023 Dr. Castro Ferrara Work Phone: [facility] Start: 01-22-2023 Non-patient / Non-visit Dr. Domingo Atkinson Work Phone: [facility] Start: 01-22-2023 Dr. Castro moy Work Phone: [facility] Start: 01-19-2023 Non-patient / Non-visit Dr. Domingo Atkinson Work Phone: [facility] Inpatient Physicians Start: 01-19-2023 Dr. Castro moy Work Phone: [facility] Inpatient Physicians Start: 01-18-2023 Non-patient / Non-visit Dr. Domingo Atkinson Work Phone: [facility] Start: 01-18-2023 Dr. Castro moy Work Phone: [facility] Start: 01-18-2023 Non-patient / Non-visit Dr. Domingo Atkinson Work Phone: [facility] Inpatient Physicians Start: 01-18-2023 Dr. Castro moy Work Phone: [facility] Inpatient Physicians Start: 01-17-2023 Non-patient / Non-visit Dr. Domingo Atkinson Work Phone: [facility] Start: 01-17-2023 Dr. Castro moy Work Phone: [facility] Start: 01-17-2023 Non-patient / Non-visit Dr. Domingo Atkinson Work Phone: [facility] Inpatient Physicians Start: 01-17-2023 End: 01-19-2023 Evaluation and management of inpatient Dr. Vinny Atkinson Work Phone: [facility] Start: 01-17-2023 End: 01-19-2023 Dr. Castro Ferrara Work Phone: [facility] Start: 01-17-[address] Vinny Atkinson Work Phone: [facility]Labor[facility] Start: 01-15-2023 End: 01-15-2023 Office outpatient visit 25 minutes Kelby Chance APRN-DEBURRER MACHINE Work Phone: Gastroenterology and Hepatology [facility] Comment on above: Cirrhosis of liver w ithout ascites, unspecified hepatic cirrhosis type (Primary Dx) Start: 01-03-2023 End: 01-03-[address] Vinny Atkinson Work Phone: [facility] Work Phone: Start: 01-03-2023 End: 01-03-[address] Vinny Atkinson Work Phone: [facility] Start: 01-03-2023 End: 01-03-2023 Dr. Castro Ferrara Work Phone: [facility] Start: 12-08-2022 End: 12-08-[address] Vinny Atkinson Work Phone: [facility] Work Phone: Start: 12-08-2022 End: 12-08-[address] Vinny Atkinson Work Phone: [facility] Start: 12-08-2022 End: 12-08-2022 Dr. Castro Ferrara Work Phone: [facility], [facility] Start: 12-06-2022 Non-patient / Non-visit Dr. Domingo Atkinson Work Phone: [facility] Start: 12-06-2022 End: 12-06-[address] Vinny Atkinson Work Phone: [facility]-Cardiovascular Services Start: 12-06-2022 End: 12-06-[address] Vinny Atkinson Work Phone: [facility] Work Phone: Start: 12-06-2022 End: 12-06-[address] Vinny Atkinson Work Phone: [facility] Start: 12-06-[address] Vinny Atkinson Work Phone: [facility] Start: 12-06-2022 End: 12-06-2022 Dr. Castro Ferrara Work Phone: [facility] Start: 11-27-2022 End: 11-27-[address] Vinny Atkinson Work Phone: [facility] Start: 11-06-2022 End: 11-06-[address] Vinny Atkinson Work Phone: [facility] Start: 10-16-2022 End: 10-16-[address] Vinny Atkinson Work Phone: [facility] Neurology Start: 10-16-2022 End: 10-18-[address] Vinny Atkinson Work Phone: [facility] Start: 09-27-2022 End: 09-27-[address] Vinny Atkinson Work Phone: [facility] Gastroenterology Start: 09-18-2022 End: 09-18-[address] Vinny Atkinson Work Phone: [facility] Work Phone: Start: 09-18-2022 End: 09-18-[address] Vinny Atkinson Work Phone: [facility] Start: 09-18-[address] Vinny Atkinson Work Phone: [facility] Start: 08-28-2022 End: 09-18-[address] Vinny Atkinson Work Phone: [facility] Work Phone: Start: 08-28-2022 End: 09-18-[address] Vinny Atkinson Work Phone: [facility]-[employer] Operator Start: 08-17-2022 End: 08-17-[address] Vinny Atkinson Work Phone: [facility] Work Phone: Start: 08-17-2022 End: 08-17-[address] Vinny Atkinson Work Phone: [facility] Start: 08-03-[address] Vinny Atkinson Work Phone: [facility] Start: 07-31-2022 End: 07-31-[address] Vinny Atkinson Work Phone: [facility] Work Phone: Start: 07-31-2022 End: 07-31-[address] Vinny Atkinson Work Phone: [facility] Start: 07-18-2022 Non-patient / Non-visit Dr. Domingo Atkinson Work Phone: [facility] Inpatient Physicians Start: 07-17-2022 Non-patient / Non-visit Dr. Domingo Atkinson Work Phone: [facility] Start: 07-17-2022 Non-patient / Non-visit Dr. Domingo Atkinson Work Phone: [facility] Inpatient Physicians Start: 07-16-2022 Non-patient / Non-visit Dr. Domingo Atkinson Work Phone: [facility] Start: 07-16-2022 Non-patient / Non-visit Dr. Domingo Atkinson Work Phone: [facility] Inpatient Physicians Start: 07-15-2022 End: 07-18-2022 Non-patient / Non-visit Dr. Vinny Atkinson Work Phone: [facility] Inpatient Physicians Start: 07-15-2022 End: 07-18-2022 Evaluation and management of inpatient Dr. Vinny Atkinson Work Phone: [facility]-Progressive Care Unit Start: 07-14-2022 End: 07-14-2022 Office outpatient visit 25 minutes Ethel CARLOSDEBURRER MACHINE Work Phone: Gastroenterology and Hepatology [facility] Comment on above: Cirrhosis of liver w ithout ascites, unspecified hepatic cirrhosis type (Primary Dx) Start: 07-05-2022 End: 07-05-[address] Vinny Atkinson Work Phone: [facility] Work Phone: Start: 07-05-2022 End: 07-05-[address] Vinny Atkinson Work Phone: [facility] Start: 07-05-[address] V[facility] Atkinson [facility] Start: 06-14-2022 End: 06-18-[address] Vinny Atkinson [facility] Start: 06-06-2022 End: 06-06-[address] Vinny Atkinson Work Phone: [facility] Cancer Care Start: 06-06-[address] Vinny Atkinson Work Phone: [facility] Oncology Start: 05-23-2022 End: 05-23-[address] Vinny Atkinson [facility] Start: 05-17-2022 End: 05-17-[address] Vinny Atkinson [facility] Start: 05-08-2022 End: 05-08-[address] Vinny Atkinson Work Phone: [facility] Heart Group Start: 04-24-2022 End: 04-24-[address] Vinny Atkinson Work Phone: [facility] Neurology Start: 04-14-2022 End: 04-14-[address] Vinny Atkinson [facility] Start: 04-08-2022 End: 04-08-2022 Emergency department patient visit Dr. Vinny Atkinson Work Phone: [facility]-Emergency Department Start: 04-07-[address] Vinny Atkinson [facility] Start: 04-06-2022 Non-patient / Non-visit Dr. Domingo Atkinson Work Phone: [facility] Inpatient Physicians Start: 04-05-2022 Non-patient / Non-visit Dr. Domingo Atkinson Work Phone: [facility] Inpatient Physicians Start: 04-04-2022 Non-patient / Non-visit Dr. Domingo Atkinson Work Phone: [facility] Start: 04-04-2022 Non-patient / Non-visit Dr. Domingo Atkinson Work Phone: [facility] Inpatient Physicians Start: 04-04-2022 End: 04-06-2022 Evaluation and management of inpatient Dr. Vinny Atkinson Work Phone: [facility]-Progressive Care Unit Start: 04-03-[address] Vinny Atkinson Work Phone: [facility]Laboratory Start: 03-17-2022 End: 03-17-2022 Subsequent hospital visit by physician Kelby Chance APRN-DEBURRER MACHINE Work Phone: [facility] Comment on above: Arrived Start: 03-03-2022 End: 03-03-[address] Vinny Atkinson Work Phone: [facility]Labor[facility] Start: 02-20-2022 End: 02-20-[address] Vinny Atkinson Work Phone: [facility]-Pulmonary Services/Neurology Start: 02-17-[address] Vinny Atkinson Work Phone: [facility]Laboratory Start: 02-16-2022 Non-patient / Non-visit Dr. Domingo Atkinson Work Phone: [facility] Start: 02-16-2022 End: 02-16-[address] Vinny Atkinson Work Phone: [facility]-Pulmonary Services/Neurology Start: 02-10-2022 End: 02-16-[address] Vinny Atkinson Work Phone: [facility]Labor[facility] Start: 02-09-2022 End: 02-09-[address] Vinny Atkinson Work Phone: [facility]-Sleep Lab Start: 02-01-2022 End: 02-01-[address] Vinny Atkinson Work Phone: [facility] Start: 01-26-2022 End: 01-26-[address] Vinny Atkinson Work Phone: [facility]-Pulmonary Medicine [facility] Start: 01-16-2022 End: 01-16-[address] Vinny Atkinson Work Phone: [facility]Labor[facility] Start: 01-12-2022 Non-patient / Non-visit Dr. Domingo Atkinson Work Phone: [facility] Inpatient Physicians Start: 01-12-2022 Non-patient / Non-visit Dr. Domingo Atkinson Work Phone: [facility] Start: 01-11-2022 Non-patient / Non-visit Dr. Domingo Atkinson Work Phone: [facility] Inpatient Physicians Start: 01-10-2022 Non-patient / Non-visit Dr. Domingo Atkinson Work Phone: [facility] Start: 01-10-2022 End: 01-12-2022 Evaluation and management of inpatient Dr. Vinny Atkinson Work Phone: [facility]-Progressive Care Unit Start: 01-09-2022 End: 01-09-[address] Vinny Atkinson Work Phone: [facility] Neurology Start: 12-27-2021 End: 12-27-[address] Vinny Atkinson Work Phone: [facility]-Laboratory, Specimen Start: 12-15-2021 End: 12-15-[address] Vinny Atkinson Work Phone: [facility] Surgical Associates Start: 12-14-2021 Non-patient / Non-visit Dr. Domingo Atkinson Work Phone: [facility] Start: 12-14-2021 End: 12-14-[address] Vinny Atkinson [facility] Start: 12-14-2021 End: 12-19-[address] Vinny Atkinson [facility] Start: 11-29-2021 End: 11-29-[address] Vinny Atkinson [facility] Start: 11-25-2021 End: 11-25-[address] Vinny Atkinson [facility] Start: 11-21-2021 End: 11-21-[address] Vinny Atkinson [facility] Start: 11-16-2021 End: 11-19-[address] Vinny Atkinson [facility] Start: 10-31-2021 End: 10-31-[address] Vinny Atkinson Work Phone: [facility] Start: 10-31-2021 End: 10-31-[address] Vinny Atkinson Work Phone: [facility] Start: 05-24-2021 End: 05-24-2021 ambulatory UNKNOWN PROVIDER Facility:[facility] Start: 05-19-2021 ambulatory UNKNOWN PROVIDER Facili ty:[facility] Procedures Date Procedure Procedure Detail Performing Clinician Start: 07-28-2025 CBCDIF (EXTERNAL) Ligia Fuentes MD Work Phone: Start: 07-28-2025 Creatinine [Mass/volume] in Serum or Plasma Ligia Fuentes MD Work Phone: Start: 07-28-2025 VANCOMYCIN PRE DOSE (AK) Ligia Fuentes MD Work Phone: Start: 07-23-2025 Calculation of international normalized ratio Dr. Castro Ferrara DO Work Phone: Start: 07-21-2025 VANCOMYCIN PRE DOSE (AK) Ligia Fuentes MD Work Phone: Start: 07-21-2025 Blood count smear mcrscp w/mnl difrntl wbc count Dr. Castro Ferrara DO Work Phone: Start: 07-21-2025 Calculation of international normalized ratio Dr. Castro Ferrara DO Work Phone: Start: 07-21-2025 Mean corpuscular hemoglobin concentration determination Dr. Castro Ferrara DO Work Phone: Start: 07-21-2025 Nucleated red blood cell count procedure Dr. Castro Ferrara DO Work Phone: Start: 07-21-2025 Platelet mean volume determination Dr. Mk Ferrara DO Work Phone: Start: 07-20-2025 Calculation of international normalized ratio Dr. Castro Ferrara DO Work Phone: Start: 07-17-2025 Calculation of international normalized ratio Dr. Castro Ferrara DO Work Phone: Start: 07-17-2025 Serum inorganic phosphate measurement Dr. Castro Ferrara DO Work Phone: Start: 07-16-2025 CBCDIF (EXTERNAL) Ligia Fuentes MD Work Phone: Start: 07-16-2025 VANCOMYCIN PRE DOSE (AK) Ligia Fuentes MD Work Phone: Start: 07-16-2025 Blood count smear mcrscp w/mnl difrntl wbc count Dr. Castro Ferrara DO Work Phone: Start: 07-16-2025 Mean corpuscular hemoglobin concentration determination Dr. Castro Ferrara DO Work Phone: Start: 07-16-2025 Nucleated red blood cell count procedure Dr. Castro Ferrara DO Work Phone: Start: 07-16-2025 Platelet mean volume determination Dr. Mk Ferrara DO Work Phone: Start: 06-26-2025 Echocardiography REMUS UNGUR Start: 06-23-2025 CT of abdomen and pelvis [...] Dr. Mk Ferrara DO Work Phone: Start: 05-27-2025 Total [...] above: Performed By: #### XM #### [facility] ([place] [address] Start: 03-05-2025 Assay of magnesium Hien Anderson [...] above: Performed By: #### XM #### [facility] ([facility]) [address] [place] [address] Start: 03-02-2025 Blood typing serologic abo Agueda mcconnell MD Work Phone: Start: 03-02-2025 Prothrombin time Key Rizo MD Work Phone: Start: 03-01-2025 Thromboplastin time partial plasma/whole blood Nayeli Casillas MD Work Phone: Start: 03-01-2025 Thromboplastin time partial plasma/whole blood Nayeli Casillas MD Work Phone: Start: 03-01-2025 Thromboplastin time partial plasma/whole blood Nayeli Casillas MD Work Phone: Start: 03-01-2025 Hemodialysis [place] J Kalani [facility] Work Phone: Start: 02-28-2025 Prothrombin time Key Rizo MD Work Phone: Start: 02-28-2025 BLOOD CULTURE IDENTIFICATION PANEL Ladyhet praful Stiles MD Work Phone: Start: 02-28-2025 Cul [...] Casillas MD Work Phone: Start: 2025 Hemodialysis [place] Kurt JACK Work Phone: Start: 2025 Thromboplastin time partial plasma/whole blood Nayeli Casillas MD Work Phone: Start: 2025 Antibody screen Hoda Moore MD Work Phone: Start: 2025 Antibody screen RIKA CASTRO Comment on above: Performed By: #### XM #### [facility] (DEFAULT) [address] [address] Start: 2025 Blood typing serologic abo Agueda [...] MD Work Phone: Start: 02-24-2025 Antibody screen SILVIADIANTrent MARBELLA Comment on above: Performed By: #### XM #### [facility] (DEFAULT) [address] [address] Start: 02-23-2025 End: 02-24-2025 Assay of magnesium [...] above: Performed By: #### SURGP #### [facility] ([facility]) [address] [place] [address] Start: 02-21-2025 Assay of magnesium Castro A Yann [facility] Work Phone: Start: 02-21-2025 Blood typing serologic abo Agueda mcconnell MD Work Phone: Start: 02-20-2025 Thromboplastin time partial plasma/whole blood Nayeli Casillas MD Work Phone: Start: 02-20-2025 Thromboplastin time partial plasma/whole blood Nayeli Casillas MD Work Phone: Start: 02-20-2025 Hemodialysis Taya JACK Work Phone: Start: 02-20-2025 Assay of magnesium Castro A [facility] Work Phone: Start: 02-19-2025 Thromboplastin time partial plasma/whole blood Nayeli Casillas MD Work Phone: Start: 02-19-2025 Thromboplastin time partial plasma/whole blood Nayeli Casillas MD Work Phone: Start: 02-19-2025 Assay of magnesium Castro A [facility] Work Phone: Start: 02-18-2025 Thromboplastin time partial plasma/whole blood Nayeli Casillas MD Work Phone: Start: 02-18-2025 Hemodialysis Kelby Elizondo MACHINE ADJUSTER [employer] Work Phone: Start: 02-18-2025 Thromboplastin time partial plasma/whole blood Nayeli Casillas MD Work Phone: Start: 02-18-2025 Antibody screen Hoda Moore MD Work Phone: Start: 02-18-2025 Antibody screen SILVIATAMAR MARBELLA Comment on above: Performed By: #### XM #### [facility] ([place] [address] Start: 02-18-2025 End: 02-18-2025 Assay of magnesium Castro A [facility] Work Phone: Start: 02-18-2025 Blood typing serologic [...] Start: 02-17-2025 Assay of magnesium Castro Lerner [facility] Work Phone: Start: 02-16-2025 Thromboplastin time partial [...] above: Performed By: #### XM #### [facility] (DEFAULT) [address] [place] [address] Start: 02-15-2025 Blood typing serologic abo Agueda [...] MD Work Phone: Start: 02-13-2025 Hemodialysis Maria Eugneia Landry ROSE Work Phone: Start: 02-13-2025 Ct [...] 02-12-2025 Mean corpuscular hemoglobin concentration determination Dr. Csatro Ferrara DO Work Phone: Start: 02-12-2025 Nucleated [...] Phone: Start: 12-19-2024 Hemodialysis Trina B Santos MACHINE ADJUSTER [employer] Work Phone: Start: 12-19-2024 Creatinine blood [...] Phone: Start: 12-16-2024 BUN/Creatinine ratio Dr. Castro Ferraar DO Work Phone: Start: 12-16-2024 Calculation of [...] 04-02-2024 CBC AND ELECTRONIC DIFF Aileen Phoenix MACHINE ADJUSTER LEADER [employer] Work Phone: Start: 04-02-2024 Complete blood count with white cell differential, automated Aileen Phoenix MACHINE ADJUSTER LEADER [employer] Work Phone: Start: 04-02-2024 Creatinine blood Aileen Phoenix MACHINE ADJUSTER LEADER [employer] Work Phone: Start: 04-02-2024 Ecg routine ecg w/least 12 lds w/i&r Aileen Phoenix MACHINE ADJUSTER LEADER [employer] Work Phone: Start: 03-24-2024 Echo transthorc r-t [...] panel - Serum or Plasma Kelby Chance MACHINE ADJUSTER LEADER [employer] Work Phone: Start: 08-13-2018 Stool Occult Blood [...] Jeff Grullon MD Start: 12-18-2016 End: 12-18-2016 [facility] Jeff Grullon MD Start: 10-17-2016 End: [...] 11-10-2013 Follow Up Appt 3 months Jeff Gurllon MD Start: 09-04-2013 End: 09-04-2013 MM Jeff [...] Program eval implantable in persn dual ld mag Flores MD Start: 04-24-2013 End: 05-06-2013 *BMP [...] Activity Detail Author Start: 07-24-2028 Tetanus vaccination [facility] Start: 07-24-2028 Urine microalbumin profile DTaP,Tdap,Td Vaccine (2 - Td or Tdap) [facility] Start: 07-12-2028 Diabetes Screening Diabetes Screening [facility] Start: 07-01-2028 Diabetes Screening Diabetes Screening [facility] Start: 02-04-2028 Lipid panel LIPID SCREENING [facility] Start: 07-28-2026 Complete blood count Hemoglobin/Hematocrit [facility] Start: 07-16-2026 Complete blood count Hemoglobin/Hematocrit [facility] Start: 07-12-2026 Creatinine measurement Serum Creatinine [facility] Start: 07-01-2026 Complete blood count Hemoglobin/Hematocrit [facility] Start: 07-01-2026 Creatinine measurement Serum Creatinine [facility] Start: 05-20-2026 Fasting lipid profile LIPID SCREENING [facility] Start: 05-20-2026 Lipid panel LIPID SCREENING [facility] Start: 02-16-2026 Screening for malignant neoplasm of colon [facility] Start: 11-18-2025 End: 11-18-2025 Patient encounter procedure 11/18/2025 11:00 AM EST Office Visit [facility] [place] [address] [place] [phone] Kelby Chance, MACHINE ADJUSTER LEADER CASE TRIM[employer] MACHINE [address] [place] [address] [facility] [place] Start: 10-16-2025 End: 04-15-2026 US Abdomen RUQ US ABDOMEN RUQ/LIVER/GB Imaging Routine Other cirrhosis of liver Expected: 10/16/2025 (Approximate), Expires: 04/15/2026 [facility] Comment on above: Expected: 10/16/2025 (Approximate), Expi res: 04/15/2026 Start: 08-21-2025 End: 08-21-2025 Patient encounter procedure 08/21/2025 10:30 AM EDT Office Visit [facility] [address] [place] [address] Ligia Fuentes MD [address] [place] [address] [facility] Comment on above: [facility] Start: 07-20-2025 Influenza vaccination Influ[facility] Vacc[facility] Start: 06-24-2025 End: 06-24-2025 Patient encounter procedure 06/24/2025 1:30 PM EDT Office Visit [facility] [address] [place] [address] Vaishnavi Fry, DO [address] [place] [address] Gastroenterology and Hepatology [facility] Start: 06-23-2025 [facility] Start: 06-14-2025 [facility] Start: 06-14-2025 [facility] Start: 06-03-2025 End: 06-03-2025 Patient encounter procedure 06/03/2025 11:30 AM EDT Office Visit [facility] [address] [place] [address] Vaishnavi Fry, DO [address] [place] [address] [facility]ology [facility]ology [facility] Start: 05-27-2025 [facility] Start: 04-29-2025 Walking distance 6 minutes [facility] Start: 04-18-2025 [facility] Start: 04-16-2025 End: 04-16-2026 AFP TUMOR MARKER AFP TUMOR MARKER Lab Routine Other cirrhosis of liver Expected: 04/16/2025 (Approximate), Expires: 04/16/2026 [facility] Comment on above: Expected: 04/16/2025 (Approximate), Expi res: 04/16/2026 Start: 04-15-2025 End: 04-15-2025 ambulatory G[facility]enterology [facility]atology [facility] Start: 04-08-2025 Measurement of respiratory function [facility] Start: 03-23-2025 Computed tomography of abdomen and pelvis with contrast [facility] Start: 03-23-2025 CT Abdomen and Pelvis W contrast IV [facility] Start: 02-13-2025 End: 02-13-2025 [facility] Start: 02-12-2025 End: 02-12-2025 [facility] Start: 02-03-2025 COVID-19 VACCINE (6 - Pfizer risk ) COVID-19 VACCINE (6 - Pfizer risk season) [facility] Start: 12-29-2024 End: 10-22-2025 US Abdomen RUQ US ABDOMEN RUQ/LIVER/GB Imaging Routine Other cirrhosis of liver Expected: 12/29/2024 (Approximate), Expires: 10/22/2025 [facility] Comment on above: Expected: 12/29/2024 (Approximate), Expi res: 10/22/2025 Start: 12-17-2024 [facility] Start: 12-16-2024 [facility] Start: 12-16-2024 [facility] Start: 11-19-2024 Advance Directive Discussion Advance Directive Discussion [facility] Start: 10-22-2024 End: 10-22-2025 AFP TUMOR MARKER [facility] Comment on above: Expected: 10/22/2024 (Approximate), Expi res: 10/22/2025 Start: 10-22-2024 End: 10-22-2024 Patient encounter procedure 10/22/2024 11:00 AM EST Office Visit [facility] [place] [address] [place] [address] Kelby Chance, MACHINE ADJUSTER LEADER CASE TRIM[employer] MACHINE [address] [place] [address] [facility] [place] Start: 07-17-2024 End: 04-16-2025 US Abdomen RUQ US ABDOMEN RUQ/LIVER/GB Imaging Routine Other cirrhosis of liver Expected: 07/17/2024 (Approximate), Expires: 04/16/2025 [facility] Comment on above: Expected: 07/17/2024 (Approximate), Expi res: 04/16/2025 Start: 05-01-2024 Hepatitis B Vaccine (7 of 7 - Risk Dialysis Recombivax 3-dose series) Hepatitis B Vaccine (7 of 7 - Risk Dialysis Recombivax 3-dose series) [facility] Start: 04-16-2024 End: 04-16-2024 Patient encounter procedure 04/16/2024 10:30 AM EDT Office Visit [facility] [address] [place] [phone] Vaishnavi Fry, DO [address] [place], [place] [id number] G[facility]enterology and Hepatology [facility] Start: 04-02-2024 End: 04-02-2024 Admission to same day surgery center 04/02/2024 9:45 AM EDT - 04/02/2024 11:00 AM EDT Surgery Cardiovascular Imaging Lab [facility] [address] [place] [address] Rick Stuart All [address] [place] [address] ICD Generator Changeout Cardiovascular Imaging Lab [facility] Comment on above: ICD Generator Changeout Start: 04-02-2024 Subsequent hospital visit by physician 04/02/2024 9:45 AM EDT Hospital Encounter Cardiology [facility] [address] [place] [phone] Ronnie Ferrari MD [address] [place] [address] SSS (sick sinus syndrome) [facility] Comment on above: SSS (sick sinus syndrome) Start: 02-28-2024 RSV Vaccine (1 - 1-dose 75+ series) RSV Vaccine (1 - 1-dose 75+ series) [facility] Start: 02-08-2024 Prostate specific antigen measurement PROSTATE CANCER SCREENING DISCUSSION [facility] Start: 01-18-2024 End: 12-05-2024 US Abdomen RUQ US ABDOMEN RUQ/LIVER/GB Imaging Routine Other cirrhosis of liver Cirrhosis of liver without ascites, unspecified hepatic cirrhosis type Frailty Expected: 01/18/2024 (Approximate), Expires: 12/05/2024 [facility] Comment on above: Expected: 01/18/2024 (Approximate), Expi res: 12/05/2024 Start: 12-05-2023 End: 12-05-2023 Patient encounter procedure 12/05/2023 10:00 AM EST Office Visit [facility] [place] [address] [place] [address] Kelby Chance, MACHINE ADJUSTER LEADER CASE TRIM-[employer] MACHINE [address] [place] [address] [facility] [place] [facility] Start: 12-04-2023 Zoster vaccine hzv live for subcutaneous use ZOSTER (SHINGLES) VACCINE (2 of 2) [facility] Start: 07-20-2023 COVID-19 VACCINE () COVID-19 VACCINE () [facility] Start: 07-20-2023 End: 07-12-2024 CT Abdomen WO and W contrast IV CT ABDOMEN WITH AND WITHOUT CONTRAST Imaging Routine Other cirrhosis of liver Expected: 07/20/2023 (Approximate), Expires: 07/12/2024 [facility] Comment on above: Expected: 07/20/2023 (Approximate), Expi res: 07/12/2024 Start: 07-20-2023 Influenza vaccination INFLUENZA VACCINE (#1) [facility] Start: 05-08-2023 End: 05-08-2023 Patient encounter procedure 05/08/2023 Office Visit Gastroenterology Vaishnavi Fry, DO [address] [place], [place] [id number] Gastroenterology and Hepatology [facility] Start: 03-29-2023 [facility] Start: 03-29-2023 Plain chest X-ray Chest 1 View (Portable) [facility] Start: 03-29-2023 XR Chest Single view [facility] Start: 03-28-2023 End: 03-28-2024 Bacteria identified in Urine by Culture [facility] Comment on above: Expected: 03/28/2023, Expires: Start: 01-19-2023 Patient discharge [facility] Start: 01-18-2023 Application of intermittent pneumatic compression device [facility] Start: 01-18-2023 Administration of blood product [facility] Start: 01-17-2023 Following clinical pathway protocol [facility] Start: 01-17-2023 Assessment of risk of venous thromboembolism [facility] Start: 01-17-2023 Insertion of catheter into peripheral vein [facility] Start: 01-17-2023 Oxygen therapy [facility] Start: 01-17-2023 Providing care according to standard [facility] Start: 01-17-2023 Provision of activity privileges [facility] Start: 01-17-2023 Referral to gastroenterology service [facility] Start: 01-17-2023 Referral to [facility] Start: 01-17-2023 [facility] Start: 01-17-2023 Verification routine [facility] Start: 01-17-2023 Admission procedure [facility] Start: 01-17-2023 Administration of blood product [facility] Start: 01-17-2023 Transfusion of red blood cells [facility] Start: 01-17-2023 Leukocyte reduced red blood cells [facility] Start: 01-15-2023 End: 01-15-2024 AFP TUMOR MARKER AFP TUMOR MARKER Lab Routine Cirrhosis of liver without ascites, unspecified hepatic cirrhosis type Expected: 01/15/2023 (Approximate), Expires: 01/15/2024 [facility] Comment on above: Expected: 01/15/2023 (Approximate), Expi res: 01/15/2024 Start: 01-15-2023 End: 01-15-2024 CHEM 6 (LYTES, BUN CREA) CHEM 6 (LYTES, BUN CREA) Lab Routine Cirrhosis of liver without ascites, unspecified hepatic cirrhosis type Expected: 01/15/2023, Expires: 01/15/2024 [facility] Comment on above: Expected: 01/15/2023, Expires: Start: 01-15-2023 End: 01-15-2024 Complete blood count with white cell differential, automated CBC, EDIF, PLATELET Lab Routine Cirrhosis of liver without ascites, unspecified hepatic cirrhosis type Expected: 01/15/2023 (Approximate), Expires: 01/15/2024 [facility] Comment on above: Expected: 01/15/2023 (Approximate), Expi res: 01/15/2024 Start: 01-15-2023 End: 01-15-2024 Hepatic function 2000 panel - Serum or Plasma HEPATIC FUNCTION PANEL Lab Routine Cirrhosis of liver without ascites, unspecified hepatic cirrhosis type Expected: 01/15/2023 (Approximate), Expires: 01/15/2024 [facility] Comment on above: Expected: 01/15/2023 (Approximate), Expi res: 01/15/2024 Start: 01-15-2023 End: 01-15-2024 PROTIME-INR PROTIME-INR Lab Routine Cirrhosis of liver without ascites, unspecified hepatic cirrhosis type Expected: 01/15/2023 (Approximate), Expires: 01/15/2024 [facility] Comment on above: Expected: 01/15/2023 (Approximate), Expi res: 01/15/2024 Start: 01-15-2023 End: 01-15-2024 US.doppler Abdominal vessels US ABDOMEN LIVER DOPPLER Imaging Routine Cirrhosis of liver without ascites, unspecified hepatic cirrhosis type Expected: 01/15/2023, Expires: 01/15/2024 [facility] Comment on above: Expected: 01/15/2023, Expires: Start: 01-15-2023 End: 01-15-2023 Patient encounter procedure 01/15/2023 Office Visit Gastroenterology Kelby Chance, MACHINE ADJUSTER LEADER CASE TRIM-[employer] MACHINE [address] [place] [address] Gastroenterology and Hepatology [facility] Start: 10-24-2022 Pneumococcal vaccination [facility] Start: 08-26-2022 Thyroid stimulating hormone measurement [facility] Start: 08-19-2022 End: 07-14-2023 US Abdomen RUQ US ABDOMEN RUQ/LIVER/GB Imaging Routine Cirrhosis of liver without ascites, unspecified hepatic cirrhosis type Expected: 08/19/2022, Expires: 07/14/2023 [facility] Comment on above: Expected: 08/19/2022, Expires: Start: 07-20-2022 Influenza vaccination INFLUENZA VACCINE (#1) [facility] Start: 07-18-2022 Patient discharge [facility] Work Phone: Start: 07-18-2022 [facility] Work Phone: Start: 07-17-2022 Referral to occupational therapist [facility] Work Phone: Start: 07-17-2022 Dialysis procedure [facility] Work Phone: Start: 07-17-2022 Prothrombin time [facility] Work Phone: Start: 07-17-2022 Administration of blood product [facility] Work Phone: Start: 07-17-2022 [facility] Work Phone: Start: 07-16-2022 Referral to [facility] Work Phone: Start: 07-16-2022 Prothrombin time [facility] Work Phone: Start: 07-15-2022 Following clinical pathway protocol [facility] Work Phone: Start: 07-15-2022 Assessment of risk of venous thromboembolism [facility] Work Phone: Start: 07-15-2022 Catheterization of vein [facility] Work Phone: Start: 07-15-2022 Incentive spirometry [facility] Work Phone: Start: 07-15-2022 Insertion of catheter into peripheral vein [facility] Work Phone: Start: 07-15-2022 Measuring intake and output [facility] Work Phone: Start: 07-15-2022 Providing care according to standard [facility] Work Phone: Start: 07-15-2022 Provision of activity privileges [facility] Work Phone: Start: 07-15-2022 Referral to gastroenterology service [facility] Work Phone: Start: 07-15-2022 Referral to service [facility] Work Phone: Start: 07-15-2022 [facility] Work Phone: Start: 07-15-2022 Admission procedure [facility] Work Phone: Start: 07-15-2022 Administration of blood product [facility] Work Phone: Start: 07-15-2022 End: 07-16-2022 [facility] Work Phone: Start: 05-20-2022 Hepatitis B surface antibody level LDL Cholesterol [facility] Start: 04-20-2022 End: 04-20-2022 Patient encounter procedure 04/20/2022 Office Visit Gastroenterology Vaishnavi Fry, DO [address] [place], [place] [id number] Gastroenterology and Hepatology [facility] Start: 04-08-2022 Control nasal hemorrhage anterior simple CONTROL OF NOSEBLEED [facility] Work Phone: Start: 04-06-2022 Patient discharge [facility] Work Phone: Start: 04-04-2022 Administration of blood product [facility] Work Phone: Start: 04-04-2022 Dialysis procedure [facility] Work Phone: Start: 04-04-2022 Following clinical pathway protocol [facility] Work Phone: Start: 04-04-2022 Referral to ear, nose and throat service [facility] Work Phone: Start: 04-04-2022 Referral to [facility] Work Phone: Start: 04-04-2022 Referral to gastroenterology service [facility] Work Phone: Start: 04-04-2022 Catheterization of vein [facility] Work Phone: Start: 04-04-2022 Incentive spirometry [facility] Work Phone: Start: 04-04-2022 Admission procedure [facility] Work Phone: Start: 04-04-2022 Assessment of risk of venous thromboembolism [facility] Work Phone: Start: 04-04-2022 Insertion of catheter into peripheral vein [facility] Work Phone: Start: 04-04-2022 Measuring intake and output [facility] Work Phone: Start: 04-04-2022 Providing care according to standard [facility] Work Phone: Start: 04-04-2022 End: 04-04-2022 [facility] Work Phone: Start: 04-04-2022 Ambulation without limitation [facility] Work Phone: Start: 04-04-2022 Transfusion of red blood cells [facility] Work Phone: Start: 12-23-2021 COVID-19 VACCINE (4 - Booster for Pfizer series) COVID-19 VACCINE (4 - Booster for Pfizer series) [facility] Start: 08-06-2021 Screening for malignant neoplasm of colon COLORECTAL CANCER SCREENING DISCUSSION [facility] Start: 09-12-2018 Administration of blood product [facility] Start: 09-12-2018 [facility] Start: 08-14-2018 Administration of blood product [facility] Start: 08-14-2018 [facility] Start: 07-17-2018 Administration of blood product [facility] Start: 07-17-2018 [facility] Start: 01-18-2018 End: 01-18-2018 Appointment Appointment [facility] Work Phone: Start: 12-04-2017 End: 12-04-2017 Appointment Appointment [facility] Work Phone: Start: 11-19-2017 Medicare Annual Wellness Visit Medicare Annual Wellness Visit [facility] Start: 10-08-2017 End: 10-08-2017 INR Coag RelTime (PPP) *PT/INR - Standing Order [facility] Work Phone: Start: 08-28-2017 End: 08-28-2017 Follow Up Appt 3 months Follow Up Appt 3 months [facility] Work Phone: Start: 08-28-2017 End: 08-28-2017 Pacer Clinic Pacer Clinic [facility] Work Phone: Start: 08-21-2017 End: 02-19-2017 *CBC w/Diff - oncology ONLY *CBC w/Diff - oncology ONLY [facility] Work Phone: Start: 08-21-2017 [...] Phone: Start: 07-16-2017 End: 07-16-2017 MMM MMM [facility] Work Phone: Start: 05-04-2017 End: 06-26-2017 Follow Up Appt 3 months Follow Up Appt 3 months [facility] Work Phone: Start: 05-04-2017 End: 06-26-2017 Pacer Clinic Pacer [facility] Work Phone: Start: 05-02-2017 End: 05-02-2017 *BMP *BMP [facility] Work Phone: Start: 05-02-2017 End: 05-02-2017 *CBC with Differential *CBC with Differential [facility] Work Phone: Start: 05-02-2017 End: 05-02-2017 BNP *Brain Natriuretic Peptide BNP [facility] Work Phone: Start: 05-02-2017 End: 05-02-2017 Chest x-ray X-Ray, Chest, PA & Lateral [facility] Work Phone: Start: 05-02-2017 End: 06-26-2017 Follow Up Appt Other Follow Up Appt Other [facility] Work Phone: Start: 05-02-2017 End: 06-26-2017 PFM PFM [facility] Work Phone: Start: 05-02-2017 End: 05-02-2017 Thyroid stimulating hormone (TSH) *TSH [facility] Work Phone: Start: 05-02-2017 End: 05-02-2017 Thyroxine (T4) *T4 (Total) [facility] Work Phone: Start: 05-01-2017 Colonoscopy COLORECTAL CANCER SCREENING DISCUSSION [facility] Start: 05-01-2017 Screening for malignant neoplasm of colon COLORECTAL CANCER SCREENING DISCUSSION [facility] Start: 02-28-2017 End: 03-06-2017 INR Coag RelTime (PPP) *PT/INR - Standing Order [facility] Work Phone: Start: 02-19-2017 End: 02-22-2017 *CBC w/Diff - oncology ONLY *CBC w/Diff - oncology ONLY [facility] Work Phone: Start: 02-19-2017 End: 02-22-2017 *CMP Complete Metabolic Panel *CMP Complete Metabolic Panel [facility] Work Phone: Start: 02-19-2017 End: 02-22-2017 Carcinoembryonic antigen *CEA (Carcinoembryonic Ag) [facility] Work Phone: Start: 02-19-2017 End: 02-19-2017 Lactate dehydrogenase (LDH) *LDH -LDH (Lactate Dehydrogenase) [facility] Work Phone: Start: 02-19-2017 End: 02-19-2017 Magnesium *Magnesium [facility] Work Phone: Start: 02-19-2017 End: 02-22-2017 Office outpatient visit 15 minutes [id number] Ofc Vst, Est Level III [facility] Work Phone: Start: 02-19-2017 End: 02-19-2017 Urate *Uric Acid Blood [facility] Work Phone: Start: 01-23-2017 End: 04-17-2017 Follow Up Appt 3 months Follow Up Appt 3 months [facility] Work Phone: Start: 01-23-2017 End: 04-17-2017 Pacer Clinic Pacer Clinic [facility] Work Phone: Start: 12-18-2016 End: 12-18-2016 Follow Up Appt 6 months Follow Up Appt 6 months [facility] Work Phone: Start: 12-18-2016 End: 12-18-2016 PFM PFM [facility] Work Phone: Start: 11-29-2016 End: 09-07-2016 Echocardiography Echocardiogram (complete) [facility] Work Phone: Start: 10-17-2016 End: 04-10-2017 Follow Up Appt 3 months Follow Up Appt 3 months [facility] Work Phone: Start: 10-17-2016 End: 04-10-2017 Pacer [facility]er [facility] Work Phone: Start: 09-06-2016 End: 09-11-2016 C reactive protein (hsCRP) *CRP - C-Reative Protein [facility] Work Phone: Start: 09-06-2016 End: 09-11-2016 Erythrocyte sedimentation rate *Sedimentation Rate (ESR) [facility] Work Phone: Start: 09-04-2016 End: 06-05-2016 *CBC with Differential *CBC with Differential [facility] Work Phone: Start: 09-04-2016 End: 06-05-2016 *CMP Complete Metabolic Panel *CMP Complete Metabolic Panel [facility] Work Phone: Start: 09-04-2016 End: 06-05-2016 Lactate dehydrogenase (LDH) *LDH -LDH (Lactate Dehydrogenase) [facility] Work Phone: Start: 09-04-2016 End: 06-05-2016 Urate *Uric Acid Blood [facility] Work Phone: Start: 08-28-2016 End: 08-28-2016 Follow Up Appt 3 months Follow Up Appt 3 months [facility] Work Phone: Start: 08-28-2016 End: 08-28-2016 Follow Up Appt Other Follow Up Appt Other [facility] Work Phone: Start: 08-28-2016 End: 08-28-2016 PFM PFM [facility] Work Phone: Start: 07-13-2016 End: 07-13-2016 *BMP *BMP [facility] Work Phone: Start: 07-13-2016 End: 07-13-2016 INR Coag RelTime (PPP) *PT/INR [facility] Work Phone: Start: 07-05-2016 End: 08-28-2016 Follow Up Appt 3 months Follow Up Appt 3 months [facility] Work Phone: Start: 07-05-2016 End: 08-28-2016 Pacer Clinic Pacer Clinic [facility] Work Phone: Start: 06-29-2016 End: 06-29-2016 Echocardiography Echocardiogram (complete) [facility] Work Phone: Start: 06-29-2016 End: 06-29-2016 Follow Up Appt 6 weeks Follow Up Appt 6 weeks [facility] Work Phone: Start: 06-29-2016 End: 06-29-2016 MMM MMM [facility] Work Phone: Start: 05-25-2016 End: 11-25-2015 *CBC with Differential *CBC with Differential [facility] Work Phone: Start: 05-25-2016 End: 11-25-2015 *CMP Complete Metabolic Panel *CMP Complete Metabolic Panel [facility] Work Phone: Start: 05-25-2016 End: 11-25-2015 Lactate dehydrogenase (LDH) *LDH -LDH (Lactate Dehydrogenase) [facility] Work Phone: Start: 05-25-2016 End: 11-25-2015 Urate *Uric Acid Blood [facility] Work Phone: Start: 04-10-2016 End: 10-16-2016 Follow Up Appt 2 weeks Follow Up Appt 2 weeks [facility] Work Phone: Start: 03-09-2016 End: 04-10-2017 *Hepatic Function Panel *Hepatic Function Panel [facility] Work Phone: Start: 03-09-2016 End: 04-10-2017 Lipid panel [AGGREGATE] *Lipid Profile CC PCP [facility] Work Phone: Start: 01-26-2016 End: 03-01-2016 Follow Up Appt Other Follow Up Appt Other [facility] Work Phone: Start: 01-04-2016 End: 01-05-2016 Surgery Referral Surgery Referral Kaylin Kyle MD, [facility], [address], [address], [place], [address] [facility] Work Phone: Start: 12-15-2015 End: 06-29-2016 Follow Up Appt 3 months Follow Up Appt 3 months [facility] Work Phone: Start: 12-15-2015 End: 06-29-2016 Pacer Clinic Pacer Clinic [facility] Work Phone: Start: 12-03-2015 End: 12-09-2015 *Hepatic Function Panel *Hepatic Function Panel [facility] Work Phone: Start: 12-03-2015 End: 12-09-2015 Lipid panel [AGGREGATE] *Lipid Profile CC PCP [facility] Work Phone: Start: 09-13-2015 End: 09-21-2015 *BMP *BMP [facility] Work Phone: Start: 09-13-2015 End: 09-21-2015 *CBC with Differential *CBC with Differential [facility] Work Phone: Start: 09-13-2015 End: 06-29-2016 Follow Up Appt 3 months Follow Up Appt 3 months [facility] Work Phone: Start: 09-13-2015 End: 06-29-2016 Follow Up Appt 6 months Follow Up Appt 6 months [facility] Work Phone: Start: 09-13-2015 End: 06-29-2016 Pacer Clinic Pacer [facility] Work Phone: Start: 09-13-2015 End: 06-29-2016 PFM PFM [facility] Work Phone: Start: 06-03-2015 End: 06-03-2015 *Hepatic Function Panel *Hepatic Function Panel [facility] Work Phone: Start: 06-03-2015 End: 06-03-2015 Lipid panel [AGGREGATE] *Lipid Profile CC PCP [facility] Work Phone: Start: 05-14-2015 End: 09-01-2015 Follow Up Appt 3 months Follow Up Appt 3 months [facility] Work Phone: Start: 05-14-2015 End: 09-01-2015 Pacer [facility] Pacer [facility] Work Phone: Start: 03-03-2015 End: 03-04-2015 *BMP *BMP [facility] Work Phone: Start: 02-26-2015 End: 03-01-2015 Follow Up Appt 6 months Follow Up Appt 6 months [facility] Work Phone: Start: 02-26-2015 End: 03-01-2015 MMM MMM [facility] Work Phone: Start: 02-17-2015 End: 02-16-2015 *Hepatic Function Panel *Hepatic Function Panel [facility] Work Phone: Start: 02-17-2015 End: 02-16-2015 Lipid panel [AGGREGATE] *Lipid Profile CC PCP [facility] Work Phone: Start: 02-08-2015 End: 03-01-2015 Follow Up Appt 3 months Follow Up Appt 3 months [facility] Work Phone: Start: 02-08-2015 End: 03-01-2015 Pacer Clinic Pacer Clinic [facility] Work Phone: Start: 12-17-2014 End: 03-01-2015 INR Coag RelTime (PPP) *PT/INR - Standing Order [facility] Work Phone: Start: 10-29-2014 End: 11-16-2014 Follow Up BP Check Follow Up BP Check [facility] Work Phone: Start: 10-27-2014 End: 03-01-2015 Follow Up Appt 3 months Follow Up Appt 3 months [facility] Work Phone: Start: 10-27-2014 End: 03-01-2015 Pacer Clinic Pacer Clinic [facility] Work Phone: Start: 07-28-2014 End: 07-28-2014 Follow Up Appt 6 months Follow Up Appt 6 months [facility] Work Phone: Start: 07-28-2014 End: 07-28-2014 PFM PFM [facility] Work Phone: Start: 07-23-2014 End: 07-28-2014 Follow Up Appt 3 months Follow Up Appt 3 months [facility] Work Phone: Start: 07-23-2014 End: 07-28-2014 Pacer Clinic Pacer Clinic [facility] Work Phone: Start: 05-19-2014 End: 06-09-2014 Lipid panel [AGGREGATE] *Lipid Profile CC PCP [facility] Work Phone: Start: 05-15-2014 End: 05-15-2014 *Hepatic Function Panel *Hepatic Function Panel [facility] Work Phone: Start: 04-29-2014 End: 04-24-2014 Echocardiography Echocardiogram (complete) [facility] Work Phone: Start: 04-23-2014 End: 07-06-2014 Device Interrogation Device Interrogation [facility] Work Phone: Start: 04-23-2014 End: 04-24-2014 Echocardiography Echocardiogram (complete) [facility] Work Phone: Start: 04-23-2014 End: 07-06-2014 Follow Up Appt 3 months Follow Up Appt 3 months [facility] Work Phone: Start: 04-23-2014 End: 07-06-2014 MMM MMM [facility] Work Phone: Start: 04-23-2014 End: 04-24-2014 Pacer Clinic Pacer Clinic [facility] Work Phone: Start: 03-30-2014 End: 03-24-2014 *Hepatic Function Panel *Hepatic Function Panel [facility] Work Phone: Start: 03-19-2014 End: 02-24-2014 Lipid panel [AGGREGATE] *Lipid Profile CC PCP [facility] Work Phone: Start: 12-08-2013 End: 12-09-2013 CBC W Auto Differential panel - Blood *CBC without Diff [facility] Work Phone: Start: 12-08-2013 End: 12-08-2013 Follow Up Appt 3 months Follow Up Appt 3 months [facility] Work Phone: Start: 12-08-2013 End: 12-08-2013 Follow Up Appt 4 months Follow Up Appt 4 months [facility] Work Phone: Start: 12-08-2013 End: 12-08-2013 Pacer Clinic Pacer Clinic [facility] Work Phone: Start: 12-08-2013 End: 12-08-2013 PFM PFM [facility] Work Phone: Start: 11-18-2013 End: 12-03-2013 *BMP *BMP [facility] Work Phone: Start: 09-15-2013 End: 11-10-2013 *Hepatic Function Panel *Hepatic Function Panel [facility] Work Phone: Start: 09-15-2013 End: 11-10-2013 Lipid panel [AGGREGATE] *Lipid Profile CC PCP [facility] Work Phone: Start: 09-11-2013 End: 09-24-2013 *BMP *BMP [facility] Work Phone: Start: 09-04-2013 End: 09-04-2013 Echocardiography Echocardiogram (limited) [facility] Work Phone: Start: 09-04-2013 End: 11-10-2013 Follow Up Appt 3 months Follow Up Appt 3 months [facility] Work Phone: Start: 09-04-2013 End: 09-04-2013 MMM MMM [facility] Work Phone: Start: 09-04-2013 End: 11-10-2013 Pacer Clinic Pacer Clinic [facility] Work Phone: Start: 08-15-2013 End: 11-10-2013 Follow Up Appt 1 month Follow Up Appt 1 month [facility] Work Phone: Start: 08-15-2013 End: 11-10-2013 Pacer Clinic Pacer Clinic [facility] Work Phone: Start: 07-23-2013 End: [...] Phone: Start: 05-12-2013 End: 05-13-2013 *BMP *BMP [facility] Work Phone: Start: 05-12-2013 End: 05-13-2013 *CBC with Differential *CBC with Differential [facility] Work Phone: Start: 05-12-2013 End: 05-13-2013 BNP *Brain Natriuretic Peptide BNP [facility] Work Phone: Start: 05-12-2013 End: 05-12-2013 Echocardiography Echocardiogram (complete) [facility] Work Phone: Start: 05-08-2013 End: 11-10-2013 Follow Up Appt 3 months Follow Up Appt 3 months [facility] Work Phone: Start: 05-08-2013 End: 05-08-2013 Follow Up Appt Other Follow Up Appt Other [facility] Work Phone: Start: 05-08-2013 End: 11-10-2013 Pacer Clinic Pacer Clinic [facility] Work Phone: Start: 04-24-2013 End: 05-06-2013 *BMP *BMP [facility] Work Phone: Start: 04-24-2013 End: 05-08-2013 *Hepatic Function Panel *Hepatic Function Panel [facility] Work Phone: Start: 04-24-2013 End: 05-08-2013 Follow Up Appt 3 months Follow Up Appt 3 months [facility] Work Phone: Start: 04-24-2013 End: 05-08-2013 Lipid panel [AGGREGATE] *Lipid Profile CC PCP [facility] Work Phone: Start: 04-24-2013 End: 05-08-2013 PFM PFM [facility] Work Phone: Start: 01-21-2013 End: 03-18-2013 *BMP *BMP [facility] Work Phone: Start: 01-21-2013 End: 03-18-2013 *CBC with Differential *CBC with Differential [facility] Work Phone: Start: 01-21-2013 End: 01-21-2013 Follow Up Appt 3 months Follow Up Appt 3 months [facility] Work Phone: Start: 01-21-2013 End: 03-18-2013 Magnesium *Magnesium [facility] Work Phone: Start: 01-21-2013 End: 03-18-2013 Thyroid stimulating hormone (TSH) *TSH [facility] Work Phone: Start: 01-21-2013 End: 03-18-2013 Thyroxine (T4) *T4 (Total) [facility] Work Phone: Start: 10-24-2012 End: 01-01-2013 *BMP *BMP [facility] Work Phone: Start: 10-24-2012 End: 10-24-2012 Echocardiography Echocardiogram (complete) [facility] Work Phone: Start: 10-24-2012 End: 10-24-2012 Follow Up Appt 3 months Follow Up Appt 3 months [facility] Work Phone: Start: 10-24-2012 End: 01-01-2013 Magnesium *Magnesium [facility] Work Phone: Start: 10-24-2012 End: 01-01-2013 Thyroid stimulating hormone (TSH) *TSH [facility] Work Phone: Start: 10-24-2012 End: 01-01-2013 Thyroxine (T4) *T4 (Total) [facility] Work Phone: Start: 09-25-2012 End: 10-07-2012 *Hepatic Function Panel *Hepatic Function Panel [facility] Work Phone: Start: 09-25-2012 End: 10-07-2012 Lipid panel [AGGREGATE] *Lipid Profile [facility] Work Phone: Start: 07-04-2012 End: 07-04-2012 Follow Up Appt 4 months Follow Up Appt 4 months [facility] Work Phone: Start: 06-26-2012 End: 06-17-2012 *BMP *BMP [facility] Work Phone: Start: 06-26-2012 End: 06-17-2012 *Hepatic Function Panel *Hepatic Function Panel [facility] Work Phone: Start: 06-26-2012 End: 06-17-2012 Lipid panel [AGGREGATE] *Lipid Profile [facility] Work Phone: Start: 06-26-2012 End: 06-17-2012 Magnesium *Magnesium [facility] Work Phone: Start: 05-22-2012 End: 12-12-2011 *Hepatic Function Panel *Hepatic Function Panel [facility] Work Phone: Start: 05-22-2012 End: 12-12-2011 Lipid panel [AGGREGATE] *Lipid Profile [facility] Work Phone: Start: 02-26-2012 End: 02-26-2012 Follow Up Appt 4 months Follow Up Appt 4 months [facility] Work Phone: Start: 12-11-2011 End: 12-12-2011 *BMP *BMP [facility] Work Phone: Start: 12-11-2011 End: 12-12-2011 INR Coag RelTime (PPP) *PT/INR [facility] Work Phone: Start: 11-23-2011 End: 11-23-2011 Follow Up Appt 3 months Follow Up Appt 3 months [facility] Work Phone: Start: 10-06-2011 End: 10-06-2011 Ecg routine ecg w/least 12 lds w/i&r EKG (In office) [facility] Work Phone: Start: 10-06-2011 End: 10-06-2011 Follow Up Appt Other Follow Up Appt Other [facility] Work Phone: Start: 1999 Prostate specific antigen measurement PROSTATE CANCER SCREENING DISCUSSION [facility] Start: 1999 Shingrix Vaccine (1 of 2) Shingrix Vaccine (1 of 2) [facility] Start: 1999 Zoster vaccine hzv live for subcutaneous use ZOSTER (SHINGLES) VACCINE (1 of 2) [facility] Start: 02-28-1968 Hepatitis A Vaccine (1 of 2 - Risk 2-dose series) Hepatitis A Vaccine (1 of 2 - Risk 2-dose series) [facility] Start: 02-28-1968 Third diphtheria, tetanus and acellular pertussis (DTaP) vaccination TDAP (ADULT) [facility] Start: 02-28-1968 Zoster vaccine hzv live for subcutaneous use ZOSTER (SHINGLES) VACCINE (1 of 2) [facility] Start: 1967 Annual PCP Team Chronic Disease Visit Annual PCP Team Chronic Disease Visit [facility] Start: 1967 Anxiety Screening Anxiety Screening [facility] Start: 1967 Depression Screening Depression Screening [facility] Start: 1967 Tetanus vaccination TETANUS [facility] Start: 1954 COVID-19 VACCINE (#1) COVID-19 VACCINE (#1) [facility] Start: 1949 COVID-19 VACCINE (#1) COVID-19 VACCINE (#1) [facility] AFP TUMOR MARKER AFP TUMOR MARKE R Lab Routine Cirrhosis of liver without ascites, unspecified hepatic cirrhosis type Ordered: 07/14/2022 [facility] Comment on above: Ordered: 07/14/2022 AFP TUMOR MARKER AFP TUMOR MARKE R Lab Routine Other cirrhosis of liver Ordered: 04/16/2024 [facility] Comment on above: Ordered: 04/16/2024 Alanine aminotransfe rase [Enzymatic activity/volume] in Serum or Plasma [facility] Albumin [Mass/volume ] in Serum or Plasma [facility] Alkaline phosphatase [Enzymatic activity/volume] in Serum or Plasma [facility] Dhekq-3-ckfmabhpuxp. tumo r marker [Units/volume] in Serum or Plasma [facility] Anion gap in Serum o r Plasma [facility] End: 02-28-2025 Bacteria identified in Blood by Culture [facility] End: 03-03-2025 Bacteria identified in Blood by Culture [facility] End: 03-04-2025 Bacteria identified in Blood by Culture [facility] Bilirubin, total measurement [facility] BUN/Creatinine ratio [facility] Calcium [Mass/volume ] in Serum or Plasma [facility] CALCULI, URINARY (KI DNEY STONE) CALCULI, URINARY (KIDNEY STONE) Fluids Routine Urinary frequency 03/28/2023 10:56 AM EDT [facility] Carbon dioxide, tota l [Moles/volume] in Central venous blood [facility] CBC,PLATELETS CBC,PLATELETS La b Routine Cirrhosis of liver without ascites, unspecified hepatic cirrhosis type Ordered: 07/14/2022 [facility] Comment on above: Ordered: 07/14/2022 CHEM 6 (LYTES, BUN CREA) CHEM 6 (LYTES, BUN CREA) Lab Routine Cirrhosis of liver without ascites, unspecified hepatic cirrhosis type Ordered: 07/14/2022 [facility] Comment on above: Ordered: 07/14/2022 Creatinine [Mass/vol ume] in Serum or Plasma [facility] CT Abdomen and Pelvi s contrast [facility] Work Phone: CT Abdomen and Pelvi s contrast [facility] CT Chest contrast [facility] Work Phone: CT Chest contrast [facility] CT Chest contrast [facility] CYTOLOGY, NON-FEEDMOBILE DRIVER CYTOLOGY, NON- FEEDMOBILE DRIVER Cytology Routine Urinary frequency 03/28/2023 10:56 AM EDT [facility] Echo transesophag r- t 2d w/prb img acquisj i&r ECHOCARDIOGRAM TRANSESOPHOGEAL, REAL TIME W/IMAGE DOCUMENT (2D) Endocarditis, unspecified chronicity, unspecified endocarditis type [facility] Electrophysiology study EP PROCE DURE - EPS/ABLATION/DEVICE Electrophysiology Routine SSS (sick sinus syndrome) 04/02/2024 11:28 AM EDT [facility] Work Phone: Ferritin [Mass/volum e] in Serum or Plasma [facility] Glucose [Mass/volume ] in Serum or Plasma [facility] Hemoglobin [Mass/vol ume] in Blood [facility] Work Phone: Hepatic function 200 0 panel - Serum or Plasma HEPATIC FUNCTION PANEL Lab Routine Cirrhosis of liver without ascites, unspecified hepatic cirrhosis type Ordered: 07/14/2022 [facility] Comment on above: Ordered: 07/14/2022 Hepatic function 200 0 panel - Serum or Plasma HEPATIC FUNCTION PANEL Lab Routine Other cirrhosis of liver Ordered: 04/16/2024 [facility] Comment on above: Ordered: 04/16/2024 INR in Blood by Coagulation assay [facility] Work Phone: Iron [Mass/mass] in Unspecified specimen [facility] Iron saturation [Mas s Fraction] in Serum or Plasma [facility] Lactate dehydrogenas e measurement [facility] Measurement of renal function [facility] Patient Education [facility] Work Phone: Patient referral [facility] Work Phone: Potassium measurement [facility] Prothrombin time [facility] Work Phone: PT,INR,PTT PT,INR,PTT Lab R outine Cirrhosis of liver without ascites, unspecified hepatic cirrhosis type Ordered: 07/14/2022 [facility] Comment on above: Ordered: 07/14/2022 Radionuclide gastric emptying study [facility] Serum chloride measurement [facility] Sodium measurement [facility] Total iron binding capacity measurement [facility] Total protein measurement [facility] Urea nitrogen [Mass/volume] in Serum or Plasma [facility] Urine immunofixation [facility] End: 03-17-2022 US Abdomen RUQ [facility] Comment on above: 1 Occurrences starting 03/17/2022 until 03/17/2022 Walking distance 6 minutes [facility] Immunizations Immunization Date Immunization Notes Care Provider Frantz patel 08-26-2024 influenza virus vaccine, unspecified formulation Kirsten Angeles PA-C Work Phone: [facility] 10-09-2023 zoster vaccine, unspecified formulation Kelby Chance APRN-DEBURRER MACHINE Work Phone: [facility] 08-22-2022 influenza virus vaccine, unspecified formulation Vaishnavi Fry DO Work Phone: [facility] 10-25-2021 influenza virus vaccine, unspecified formulation Vaishnavi Fry DO Work Phone: [facility] 10-24-2021 pneumococcal conjuga te vaccine, 13 valent Kelby Chance MACHINE ADJUSTER LEADER CASE TRIM-DEBURRER MACHINE Work Phone: [facility] 09-19-[address] Vinny Atkinson Work Phone: [facility] 01-21-2021 Covid (Pfizer) Dr. Vinny guido Work Phone: [facility] 12-24-2020 Covid (Pfizer) Dr. Vinny guido Work Phone: [facility] 08-25-[address] Vinny Atkinson Work Phone: [facility] 07-20-2012 influenza virus vaccine, unspecified formulation Kelby Chance MACHINE ADJUSTER LEADER CASE TRIM-DEBURRER MACHINE Work Phone: [facility] 08-16-2011 influenza virus vaccine, whole virus Kelby Chance MACHINE ADJUSTER LEADER CASE TRIM-DEBURRER MACHINE Work Phone: [facility] Work Phone: Payers Date Payer Category Payer Private Health Insurance [facility] [id number] 2017 Self-pay [id number] 2015 Medicare [id number] 2013 Medicare [id number] 2013 Medicare [id number] 2011 Managed Care (unspecified) 1.2.840.590259.1.13.172.2 .7.9.277369.76512.315 2011 Unknown AARP AARP [id number] [id number]-Present [address] [place] [address] 1.2.840.141579.1.13.172.2 .7.3.201152.315 2011 Unknown [id number] 1949 Unknown [id number] 2.840.1.090233.3.579.2 .732 1949 Unknown [id number] 2.840.1.510864.3.579.2 .594 1949 Unknown [id number] 2.840.1.374148.3.579.2 .594 1949 Unknown [id number] 2.840.1.023666.3.579.2 .594 1949 Unknown [id number] 2.840.1.930587.3.579.2 .594 1949 Unknown [id number] 2.840.1.471073.3.579.2 .594 Unknown [id number] 2.16840.1.570855.3.579.2 .462 Unknown [id number] 2.16840.1.026064.3.579.2 .462 Unknown [id number] 2.16840.1.503671.3.579.2 .462 Unknown [id number] 2.16840.1.289471.3.579.2 .462 Unknown [id number] 2.16840.1.948684.3.579.2 .462 Unknown [id number] 2.16.840.1.305301.3.579.2 .462 Unknown [id number] 2.16.840.1.453864.3.579.2 .462 Unknown [id number] 2.16.840.1.195091.3.579.2 .462 Unknown [id number] 2.16.840.1.059020.3.579.2 .462 Unknown [id number] 2.16.840.1.523219.3.579.2 .462 Unknown [id number] 2.16.840.1.312101.3.579.2 .462 Unknown [id number] 2.16.840.1.325769.3.579.2 .462 Unknown [id number] 2.16.840.1.782245.3.579.2 .462 Unknown [id number] 2.16.840.1.276370.3.579.2 .462 Unknown [id number] 2.16.840.1.660024.3.579.2 .462 Unknown [id number] 2.16.840.1.953668.3.579.2 .462 Unknown [id number] 2.16.840.1.485000.3.579.2 .462 Unknown [id number] 2.16.840.1.342324.3.579.2 .462 Unknown [id number] 2.16.840.1.678700.3.579.2 .462 Unknown [id number] 2.16.840.1.382260.3.579.2 .462 Unknown [id number] 2.16.840.1.582371.3.579.2 .462 Unknown [id number] 2.16.840.1.809248.3.579.2 .462 Unknown [id number] 2.16.840.1.355419.3.579.2 .462 Unknown [id number] 2.16.840.1.065493.3.579.2 .462 Unknown [id number] 2.16840.1.435594.3.579.2 .462 Unknown [id number] 2.16840.1.141034.3.579.2 .462 Unknown [id number] 2.16840.1.911503.3.579.2 .462 Unknown [id number] 2.16840.1.760000.3.579.2 .462 Unknown [id number] 2.840.1.074441.3.579.2 .462 Unknown [id number] 2.840.1.747950.3.579.2 .462 Unknown [id number] 2.840.1.469886.3.579.2 .462 Unknown [id number] 2.840.1.625321.3.579.2 .462 Unknown [id number] 2.840.1.318749.3.579.2 .462 Unknown [id number] .840.1.586259.3.579.2 .462 Unknown [id number] 2.840.1.513473.3.579.2 .462 Unknown [id number] 2.840.1.297461.3.579.2 .462 Unknown [id number] 2.840.1.064578.3.579.2 .462 Unknown [id number] 2.840.1.386470.3.579.2 .462 Unknown [id number] .840.1.344185.3.579.2 .462 Unknown [id number] 2.840.1.104946.3.579.2 .462 Unknown [id number] 2.840.1.031858.3.579.2 .462 Unknown [id number] 2.840.1.982884.3.579.2 .462 Unknown [id number] 2.16.840.1.122368.3.579.2 .462 Unknown [id number] 2.16.840.1.715639.3.579.2 .462 Unknown [id number] 2.16.840.1.509065.3.579.2 .462 Unknown [id number] 2.16.840.1.904085.3.579.2 .462 Unknown [id number] 2.16.840.1.871186.3.579.2 .462 Unknown [id number] 2.16.840.1.423642.3.579.2 .462 Unknown [id number] 2.16.840.1.436417.3.579.2 .462 Unknown [id number] 2.16.840.1.701241.3.579.2 .462 Unknown [id number] 2.16.840.1.669855.3.579.2 .462 Unknown [id number] 2.16.840.1.877121.3.579.2 .462 Unknown [id number] 2.16.840.1.653968.3.579.2 .462 Unknown [id number] 2.16.840.1.776709.3.579.2 .462 Unknown [id number] 2.16.840.1.762974.3.579.2 .462 Unknown [id number] 2.16.840.1.563641.3.579.2 .462 Unknown [id number] 2.16.840.1.843048.3.579.2 .462 Unknown [id number] 2.16.840.1.973526.3.579.2 .462 Unknown [id number] 2.16.840.1.288089.3.579.2 .462 Unknown [id number] 2.16.840.1.115508.3.579.2 .462 Unknown [id number] 2.16.840.1.823976.3.579.2 .462 Unknown [id number] 2.16.840.1.298571.3.579.2 .462 Unknown [id number] 2.16.840.1.889329.3.579.2 .462 Unknown [id number] 2.16.840.1.635720.3.579.2 .462 Unknown [id number] 2.16.840.1.077199.3.579.2 .462 Unknown [id number] 2.16.840.1.366441.3.579.2 .462 Unknown [id number] 2.16.840.1.183016.3.579.2 .462 Unknown [id number] 2.16.840.1.598938.3.579.2 .462 Unknown [id number] 2.16.840.1.633488.3.579.2 .462 Unknown [id number] 2.16840.1.479444.3.579.2 .462 Unknown [id number] 2.16.840.1.614386.3.579.2 .462 Unknown [id number] 2.16.840.1.326109.3.579.2 .462 Unknown [id number] 2.16.840.1.242633.3.579.2 .462 Unknown [id number] 2.16.840.1.630302.3.579.2 .462 Unknown [id number] 2.16.840.1.440007.3.579.2 .462 Unknown [id number] 2.16.840.1.708403.3.579.2 .462 Unknown [id number] 2.16.840.1.952693.3.579.2 .462 Unknown [id number] 2.16.840.1.122807.3.579.2 .462 Unknown [id number] 2.16.840.1.047949.3.579.2 .462 Unknown [id number] 2.16.840.1.771882.3.579.2 .462 Unknown [id number] 2.16.840.1.243324.3.579.2 .462 Unknown [id number] 2.16.840.1.676259.3.579.2 .462 Unknown [id number] 2.16.840.1.298390.3.579.2 .462 Unknown [id number] 2.16.840.1.849052.3.579.2 .462 Unknown [id number] 2.16.840.1.245487.3.579.2 .462 Unknown [id number] 2.16.840.1.220682.3.579.2 .462 Unknown [id number] 2.16.840.1.857839.3.579.2 .462 Unknown [id number] 2.16.840.1.409081.3.579.2 .462 Unknown [id number] 2.16840.1.241840.3.579.2 .462 Unknown [id number] 2.16840.1.961351.3.579.2 .462 Unknown [id number] 2.16840.1.082902.3.579.2 .462 Unknown [id number] 2.16840.1.642017.3.579.2 .462 Social History Date Type Detail Facility Start: 02-01-2022 End: 12-12-2023 Tobacco smoking status PRIS Unknown if ever smoked [facility] Start: 03-15-2021 None [facility] Start: 03-15-2021 Non-smoker [facility] Start: 1950 Sex Assigned At Male [facility] Start: 08-07-2013 End: 07-19-2020 Tobacco smoking status NHIS Never smoked tobacco [facility] Start: 08-07-2013 End: 07-19-2020 Tobacco use and exposure Smokeless tobacco non-user [facility] Start: 11-01-2020 End: 12-19-2021 Alcohol intake Current non-drinker of alcohol (finding) [facility] Start: 1950 Sex Assigned At Not on file [facility] Start: 01-05-2023 End: 01-15-2023 Exposure to SARS-CoV-2 (event) Not sure [facility] Start: 06-21-2018 Spouse/ Significant Other [facility] Start: 10-24-2020 End: 07-13-2023 History of Social [facility] Start: 10-24-2020 End: 07-13-2023 Tobacco use panel [facility] Start: 04-16-2024 End: 04-15-2025 Alcoholic beverage intake Lifetime non-drinker (finding) [facility] Start: 08-12-2020 Gender identity Identifies as male gender (finding) [facility] Start: 08-12-2020 Sexual orientation Heterosexual (finding) [facility] Has the [employer], [employer], or water company threatened to shut off services in your home in past 12Mo No [facility] How hard is it for y ou to pay for the very basics like food, housing, medical care, and heating Not very hard [facility] (I/We) worried hannah er (my/our) food would run out before (I/we) got money to buy more. Never true [facility] Start: 10-20-2012 In the past 12 months, has lack of transportation kept you from medical appointments or from getting medications? No [facility] Start: 12-22-2012 End: 02-13-2025 Sex Male (finding) [facility] Medical Equipment Procedure Code Equipment Code Equipment Original Text Equipment Identifier Dates [employer] SALES INTERN-P [id number] FDA Start: 05-26-2016 [employer] SALES INTERN-P [id number] FDA Start: 05-26-2016 [employer] SALES INTERN-P [id number] FDA Start: 05-26-2016 [employer] SALES INTERN-P [id number] FDA Start: 05-26-2016 [employer] SALES INTERN-P [id number] FDA Start: 05-26-2016 [id number] Start: 08-07-2013 Lead Pace Lv [id number] - [id number] Start: 05-26-2016 Cardiac pacemaker, device (physical object) ([id number]) 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 ([id number], [id number] FDA Start: 10-10-2021 Comment on above: Description: Implant time-out completed by intra-procedural staff including this RN, test technician, and performing physician. The following was completed. RN reads out loud implant type/size/ expiration date, and verbalizes location. Holds package up to tech to visually verify implant details. Tech reads back package details MD verifies verbally correct implant Time-out was completed for each coil during embolization, if applicable. [employer] SALES INTERN-P [id number] FDA Start: 05-26-2016 [employer] SALES INTERN-P [id number] FDA Start: 05-26-2016 [employer] SALES INTERN-P [id number] FDA Start: 05-26-2016 [employer] SALES INTERN-P [id number] FDA Start: 05-26-2016 [employer] Consult[employer] SALES INTERN-P [id number] FDA Start: 05-26-2016 [employer] SALES INTERN-P [id number] FDA Start: 05-26-2016 [employer] Consult[employer] SALES INTERN-P [id number] FDA Start: 05-26-2016 [employer] SALES INTERN-P [id number] FDA Start: 05-26-2016 [employer] SALES INTERN-P [id number] FDA Start: 05-26-2016 [employer] SALES INTERN-P [id number] FDA Start: 05-26-2016 [employer] SALES INTERN-P [id number] FDA Start: 05-26-2016 [employer] SALES INTERN-P [id number] FDA Start: 05-26-2016 [employer] SALES INTERN-P [id number] FDA Start: 05-26-2016 [employer] SALES INTERN-P [id number] FDA Start: 05-26-2016 [employer] SALES INTERN-P [id number] FDA Start: 05-26-2016 [employer] Consult[employer] SALES INTERN-P [id number] FDA Start: 05-26-2016 [employer] SALES INTERN-P [id number] FDA Start: 05-26-2016 [employer] SALES INTERN-P [id number] FDA Start: 05-26-2016 [employer] SALES INTERN-P [id number] FDA Start: 05-26-2016 [employer] SALES INTERN-P [id number] FDA Start: 05-26-2016 [employer] SALES INTERN-P [id number] FDA Start: 05-26-2016 [employer] SALES INTERN-P [id number] FDA Start: 05-26-2016 FDA Start: 05-26-2016 [id number] [facility] [id number] FDA Start: 03-29-2023 [employer] SALES INTERN-P [id number] FDA Start: 05-26-2016 [employer] SALES INTERN-P [id number] FDA Start: 05-26-2016 [employer] SALES INTERN-P C4TR01 FDA Start: 05-26-2016 [employer] SALES INTERN-P C4TR01 FDA Start: 05-26-2016 [employer] SALES INTERN-P C4TR01 FDA Start: 05-26-2016 Lead Pace Standard Mdt 52 - [id number] Start: 05-26-2016 Cardiac pacemaker, device (physical object) ([id number]) [id number] Start: 04-02-2024 Cardiac pacemaker, device (physical object) ([id number]) 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 FDA Start: 05-26-2016 FDA Start: 05-26-2016 FDA Start: 05-26-2016 FDA Start: 05-26-2016 FDA Start: 05-26-2016 FDA Start: 05-26-2016 FDA Start: 05-26-2016 FDA Start: 05-26-2016 FDA Start: 05-26-2016 Pacemaker-06/25/20 1 6 [id number] Start: 06-25-2016 Comment on above: Description: Medtron ic pacemaker FDA Start: 05-26-2016 Goals Date Patient Goal Desired Activity /State Personal health goal Personal health goal Functional Status Date Assessment Result Facility 02-15-2025 Within the last year , have you been humiliated or emotionally abused in other ways by your partner or ex-partner? No [facility] 02-15-2025 Within the last year , have you been afraid of your partner or ex-partner? No [facility] 02-15-2025 Within the last year , have you been kicked, hit, slapped, or otherwise physically hurt by your partner or ex-partner? No [facility] 02-13-2025 Are you deaf, or do you have serious difficulty hearing Yes [facility] 02-13-2025 Are you blind, or do you have serious difficulty seeing, even when wearing glasses No [facility] 02-13-2025 Do you have serious difficulty walking or climbing stairs No [facility] 02-13-2025 Do you have difficul ty dressing or bathing Yes [facility] 02-13-2025 Because of a physica l, mental, or emotional condition, do you have difficulty doing errands alone such as visiting a physician's office or shopping No [facility] 01-19-2023 Functional status Ambulates;Bill r;Bathroom Privilege [facility] Work Phone: 07-18-2022 Functional status Patient Activity Chair [facility] Work Phone: 07-18-2022 Functional status Activity Abili ty With Assist of 1 [facility] Work Phone: 07-17-2022 Functional status None [facility] Work Phone: 04-06-2022 Functional status Chair [facility] Work Phone: 01-12-2022 Functional status Patient Activi ty Ambulates [facility] Work Phone: 01-12-2022 Functional status Activity Abili ty With Assist of 1 [facility] Work Phone: 01-12-2022 Functional status None [facility] Work Phone: Mental Status Date Assessment Result Facility 02-13-2025 Because of a physica l, mental, or emotional condition, do you have serious difficulty concentrating, remembering, or making decisions No [facility] 12-16-2024 Cognitive function Awake;Alert;Appropriat e [facility] Work Phone: 01-19-2023 Cognitive function Voice/Name [facility] Work Phone: 01-17-2023 Cognitive function Level Of Cons ciousness Awake;Alert;Appropriate;Fol lows Commands [facility] Work Phone: 07-18-2022 Cognitive function Voice/Name [facility] Work Phone: 07-15-2022 Cognitive function Level Of Cons ciousness Drowsy [facility] Work Phone: 04-06-2022 Cognitive function Voice/Name [facility] Work Phone: 01-12-2022 Cognitive function Voice/Name [facility] Work Phone: 09-27-2020 Cognitive function Awake;Alert;A ppropriate;Fol lows Commands [facility] Work Phone: 09-24-2020 Cognitive function Voice/Name [facility] Work Phone: 09-12-2018 Cognitive function Appropriate;C ashlee;Relaxed;Ch eerful [facility] Work Phone: Clinical Notes 08-19-2003 to 07-31-2025 Telephone Encounter - Ethel Zuniga RN - 07/31/2025 2:35 PM EDTTelephone Encounter - Ethel Zuniga RN - 07/31/2025 2:35 [facility] 07/29/2025 7:45 AM EDT Note Date & Type Note Facility 07-31-2025 Telephone encounter Note External copat lab results entered. Ethel Zuniga RN [facility] Work Phone: 07-31-2025 Miscellaneous Notes External copat lab results entered. Ethel Zuniga RN documented in this encounter [facility] 07-30-2025 Note HNO ID: [id number] Author: LIGIA FUENTES MD Service: ? Author Type: Physician Type: Progress Notes Filed: 07/30/2025 14:30 Note Text: Agree and appreciated [facility] 07-29-2025 History of Presen t illness Narrative Summary: OPAT Management [facility] OPAT Documentation Note OPAT Vancomycin Monitoring - OPAT Pharmacist Consult Weekly OPAT labs reviewed. The patient is currently receiving the following IV antimicrobials as part of their OPAT therapy: vancomycin 500 mg IV after each dialysis session (TThSa). Tentative OPAT stop date is 08/22/2025. No pharmacist recommendations at this time. Please see below for additional vancomycin recommendations. [facility] OPAT PHARMACIST VANCOMYCIN DOSING NOTE Patient Name: Christian Amador Date of Consult: 07/29/2025 Time of Consult: 7:46 AM Indication: Bone & joint Goal Range: 10-20 mcg/mL RECOMMENDATIONS/PLAN: Pharmacy consulted for vancomycin dosing for Christian Amador, a 75 year old male. 1. Patient is currently ordered vancomycin 500 mg IV after each dialysis session (TThSa). 2. The most recent vancomycin level was 15.8 mcg/mL drawn on 07/27/2025. Therapeutic. 3. The present dose of vancomycin is the recommended dosage for this patient at this time. Continue therapy as prescribed. 4. The next vancomycin level will be collected 08/03/2025 unless clinically indicated sooner. 5. No orders warranted at this time We will follow patient renal function, vancomycin levels and doses with you during the course of therapy. Additional recommendations will appear in follow up notes. If you have any questions, please contact Sam Bauer RPh at . Age: [age] year old Allergies: ALLERGIES No Known Allergies Last 3 Encounter Wt Readings: Date: Wt: 06/23/2025 72.6 kg (160 lb 0.9 oz) 07/19/2020 90.5 kg (199 lb 8.3 oz) 07/19/2020 90.5 kg (199 lb 9.6 oz) Last 1 Encounter Ht Readings: Date: Ht: 06/23/2025 170.2 cm (5' 7") Intermittent hemodialysis Labs BUN (mg/dL) Date Value 07/12/2025 28 (H) 07/04/2025 12 07/02/2025 16 Creatinine (mg/dL) Date Value 07/12/2025 4.95 (H) 07/04/2025 3.11 (H) 07/02/2025 3.38 (H) WBC Date Value 07/16/2025 9.8 K/uL 07/14/2025 8.51 k/uL 07/13/2025 9.29 k/uL Vancomycin Levels: Vancomycin (ug/mL) Date Value 07/13/2025 15.4 07/10/2025 22.1 (H) Lab Abnormalities Noted: anemia Total Time Spent on this Encounter (in minutes): 5- Sam Bauer RPh documented in this encounter [facility] 07-29-2025 Note HNO ID: [id number] Author: SAM BAUER RPh Service: ? Author Type: Pharmacist Type: Progress Notes Filed: 07/29/2025 07:50 Note Text: Summary: OPAT Management [facility] OPAT Documentation Note OPAT Vancomycin Monitoring - OPAT Pharmacist Consult Weekly OPAT labs reviewed. The patient is currently receiving the following IV antimicrobials as part of their OPAT therapy: vancomycin 500 mg IV after each dialysis session (TThSa). Tentative OPAT stop date is 08/22/2025. No pharmacist recommendations at this time. Please see below for additional vancomycin recommendations. [facility] OPAT PHARMACIST VANCOMYCIN DOSING NOTE Patient Name: Christian Amador Date of Consult: 07/29/2025 Time of Consult: 7:46 AM Indication: Bone AND joint Goal Range: 10-20 mcg/mL RECOMMENDATIONS/PLAN: Pharmacy consulted for vancomycin dosing for Christian Amador, a 75 year old male. 1. Patient is currently ordered vancomycin 500 mg IV after each dialysis session (TThSa). 2. The most recent vancomycin level was 15.8 mcg/mL drawn on 07/27/2025. Therapeutic. 3. The present dose of vancomycin is the recommended dosage for this patient at this time. Continue therapy as prescribed. 4. The next vancomycin level will be collected 08/03/2025 unless clinically indicated sooner. 5. No orders warranted at this time We will follow patient renal function, vancomycin levels and doses with you during the course of therapy. Additional recommendations will appear in follow up notes. If you have any questions, please contact Sam Bauer RPh at . Age: [age] year old Allergies: ALLERGIES No Known Allergies Last 3 Encounter Wt Readings: Date: Wt: 06/23/2025 72.6 kg (160 lb 0.9 oz) 07/19/2020 90.5 kg (199 lb 8.3 oz) 07/19/2020 90.5 kg (199 lb 9.6 oz) Last 1 Encounter Ht Readings: Date: Ht: 06/23/2025 170.2 cm (5' 7") Intermittent hemodialysis Labs BUN (mg/dL) Date Value 07/12/2025 28 (H) 07/04/2025 12 07/02/2025 16 Creatinine (mg/dL) Date Value 07/12/2025 4.95 (H) 07/04/2025 3.11 (H) 07/02/2025 3.38 (H) WBC Date Value 07/16/2025 9.8 K/uL 07/14/2025 8.51 k/uL 07/13/2025 9.29 k/uL Vancomycin Levels: Vancomycin (ug/mL) Date Value 07/13/2025 15.4 07/10/2025 22.1 (H) Lab Abnormalities Noted: anemia Total Time Spent on this Encounter (in minutes): 5-10 Sam Bauer RPh [facility] 07-29-2025 History of Presen t illness Narrative Summary: OPAT Management Infectious Diseases Outpatient Parenteral Antimicrobial Therapy Pharmacist Review Patient, Christian Amador ([id number]), was reviewed by an OPAT pharmacist and is eligible for OPAT Pharmacist Consult Service for the following medications: Vancomycin. Managing ID provider, Dr. Ligia Fuentes, has opted-in to the OPAT Pharmacist Consult Service. OPAT pharmacists will continue to follow patient renal function, therapeutic drug monitoring, and laboratory monitoring throughout the course of therapy. Additional recommendations will appear in follow up notes. If you have any questions, please contact Sam Bauer at . Sam Bauer RPh 07/29/2025 7:45 AM documented in this encounter [facility] 07-29-2025 Note HNO ID: [id number] Author: SAM BAUER RPh Service: ? Author Type: Pharmacist Type: Progress Notes Filed: 07/29/2025 07:45 Note Text: Summary: OPAT Management Infectious Diseases Outpatient Parenteral Antimicrobial Therapy Pharmacist Review Patient, Christian Amador ([id number]), was reviewed by an OPAT pharmacist and is eligible for OPAT Pharmacist Consult Service for the following medications: Vancomycin. Managing ID provider, Dr. Ligia Fuentes, has opted-in to the OPAT Pharmacist Consult Service. OPAT pharmacists will continue to follow patient renal function, therapeutic drug monitoring, and laboratory monitoring throughout the course of therapy. Additional recommendations will appear in follow up notes. If you have any questions, please contact Sam Bauer at . Sam Bauer [facility] 07/29/2025 7:45 AM [facility] 07-27-2025 Telephone encounter Note External copat lab results entered. Ethel Zuniga RN [facility] Work Phone: 07-27-2025 Miscellaneous Notes External copat lab results entered. Ethel Zuniga RN documented in this encounter [facility] 07-22-2025 Telephone encounter Note External copat lab results entered. Ethel Zuniga RN [facility] Work Phone: 07-22-2025 Miscellaneous Notes External copat lab results entered. Ethel Zuniga RN documented in this encounter [facility] 07-15-2025 Note HNO ID: [id number] Author: KAYLIN SHARP, GIO Service: Dialysis Author Type: Registered Nurse Type: Nursing Progress Note Filed: 07/15/2025 10:45 Note Text: 3 hour hemo treatment complete,tolerated well, fluid removed 1 liter. See scanned flow sheet. [facility] 07-14-2025 Note [facility] 07-14-2025 Note [facility] 07-13-2025 Note HNO ID: [id number] Author: SHARDA JAVIER, GIO Service: ? Author Type: Registered Nurse Type: Progress Notes Filed: 07/13/2025 12:00 Note Text: Hemodialysis completed, pt tolerated well. See flow sheet. Fluid balance -500 ml [facility] 07-13-2025 Note [facility] 07-13-2025 Note [facility] 07-12-2025 Note [facility] 07-12-2025 Note [facility] 07-11-2025 Note [facility] 07-10-2025 Note HNO ID: [id number] Author: KAYLIN SHARP RN Service: Dialysis Author Type: Registered Nurse Type: Nursing Progress Note Filed: 07/10/2025 10:58 Note Text: 3 hour hemo treatment complete,tolerated well,fluid removed 1 liter. See scanned flow sheet. [facility] 07-10-2025 Note [facility] 07-10-2025 Note [facility] 07-09-2025 Note [facility] 07-08-2025 Note HNO ID: [id number] Author: SHARDA JAVIER RN Service: ? Author Type: Registered Nurse Type: Progress Notes Filed: 07/08/2025 10:57 Note Text: Hemodialysis completed, pt tolerated well. See flow sheet. Fluid balance -1000 ml [facility] 07-08-2025 Note [facility] 07-08-2025 Note [facility] 07-07-2025 Note [facility] 07-06-2025 Note [facility] 07-06-2025 Note [facility] 07-05-2025 Note [facility] 07-04-2025 Note [facility] 07-03-2025 Note [facility] 07-03-2025 Note [facility] 07-03-2025 Note HNO ID: [id number] Author: SHARDA JAVIER RN Service: ? Author Type: Registered Nurse Type: Progress Notes Filed: 07/03/2025 11:40 Note Text: Hemodialysis completed, pt tolerated well. See flow sheet. Fluid balance -1000 ml [facility] 07-03-2025 Note [facility] 07-02-2025 Note [facility] 07-02-2025 Note [facility] 07-02-2025 Note [facility] [facility] 07-02-2025 Note [facility] 07-01-2025 Note HNO ID: [id number] Author: PAKO FITCH, RN Service: Nursing Author Type: Registered Nurse Type: Progress Notes Filed: 07/01/2025 23:34 Note Text: Patient given suppository. Tolerated well. [facility] 07-01-2025 Note [facility] 07-01-2025 Note [facility] 07-01-2025 Note 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 [...] Monitoring Treatment Course Ligia Fuentes MD Address [address] [place] [address], [place] [address] documented in this encounter [facility] 07-01-2025 Note [facility] [place] 07-01-2025 Note [facility] [place] 06-30-2025 Note [facility] 06-30-2025 Note [facility] 06-30-2025 Note [facility] 06-30-2025 Note [facility] 06-30-2025 [facility] 06-29-2025 Note [facility] 06-29-2025 Note [facility] [place] 06-29-2025 Note [facility] 06-28-2025 [facility] 06-27-2025 Note [facility] 06-27-2025 [facility] 06-27-2025 [facility] 06-27-2025 Note HNO ID: [id number] Author: SANCHEZ RASCON, GIO Service: Nursing Author Type: Registered Nurse Type: Progress Notes Filed: 06/27/2025 06:20 Note Text: Patient removed IV. No scheduled IV medications; Per SOUND ok to leave out at this time. [facility] 06-27-2025 Note HNO ID: [id number] Author: NOTE, INTERFACE, ? Service: ? Author Type: ? Type: Progress Notes Filed: 06/27/2025 15:51 Note Text: Epic Scheduled Downtime: 06/27/2025 1:00:00 AM to 06/27/2025 2:17:00 AM [facility] 06-26-2025 Note HNO ID: [id number] Author: SHARDA JAVIER, GIO Service: ? Author Type: Registered Nurse Type: Progress Notes Filed: 06/26/2025 17:13 Note Text: Hemodialysis completed, pt tolerated well. See flow sheet. Fluid balance -500 ml [facility] 06-26-2025 Note [facility] [place] 06-26-2025 [facility] [place] 06-26-2025 Note [facility] 06-25-2025 Note [facility] 06-25-2025 Note [facility] 06-24-2025 Note [facility] 06-23-2025 Discharge summary Note Date/Time June 23, 2025 3:16pm [facility] Medical Records Department [address] [place] [address] Emergency Department Summary 06/23/25 MR#: [id number] Acct: [id number] Name: CHRISTIAN AMADOR Rep #:[id number] : 1950 75 From: Amy Viramontes DO PCP: Dr. Castro Ferrara, Status:REG ER Location: ED HPI History of [...] recent falls or injuries to his back. [facility] Medical History Pleural effusion associated with hepatic disorder ABLA (acute blood loss anemia) Anemia requiring transfusions Atherosclerotic heart disease of [place] coronary artery without angina pectoris Cirrhosis HLD (hyperlipidemia) Other specified cardiac dysrhythmias ESRD (end stage renal disease) on dialysis CKD stage G5/A1, GFR <15 and albumin creatinine ratio <30 mg/g Sepsis Vitamin D insufficiency Polyneuropathy Mild cognitive impairment Epilepsy intermediate (current) use of anticoagulants History of rheumatic [...] had a CT scan that showed an C0kikbyalpcam fracture. Severe pain last night. No fever. [...] maker for him. I discussed case with [facility] physician who accepted transfer [...] (Auto) 68.2 Lymph % (Auto) 15.5 L [place] % (Auto) 10.4 H Eos % (Auto) [...] process should be ruled out. Reading Location: [facility] Discharge Plan Triage Chief Complaint: Back ED [...] up to 4 tabs on dialysis days (--) Velphoro 500 mg tablet,chewable 500 mg PO TID levothyroxine 75 mcg tablet 75 mcg PO DAILY Nephro-Baltazar 0.8 mg tablet 1 tab PO DAILY warfarin [Jantoven] 1 mg tablet 2 mg PO . Protocol: [...] DO [Primary Care Provider] - Print Language: [place] Islander Disposition Disposition: DC/Tx to Another Type of HCF What to do if you have Problems For any increased pain, shortness of breath, bleeding, nausea or vomiting, chestpain, or any unexpected problems, contact your Primary Care Provider. Call [facility] ([phone]) or report to the closest Emergency Room. Call 911 if necessary. 06/23/25 1516 <Electronically signed by Amy Viramontes DO> Cosigner Signature (if applicable): CC: Dr. Castro Ferrara DO ~ Signed [facility] Work Phone: 1(443) 193-911708-05-2025 Radiology Diagnostic study [facility]07-27-2025 Radiology Diagnostic study [facility]07-14-2025 Evaluation note* Diagnosis Onset Date Resolution Status Admit Date GI bleed acute June 01 8:34am Hematochezia resolved June 01 025 8:34am [facility] Work Phone: 1(300) 616-523806-12-2025 Radiology Diagnostic study [facility]06-12-2025 Radiology Diagnostic study [facility]05-31-2025 Radiology Diagnostic study [facility] 04-18-2025 Radiology Diagnostic study [facility]05-31-2025 Hospital Discharge instructions Additional Instructions The x-rays of your hip, pelvis, and femur show no fractures. I suspect you have pain from bruising. I recommend you ice and 20-minute sessions off-and-on throughout the day and take Tylenol every 6 hours as needed. Pain is not improving in 7 to 10 days see your family doctor. [facility] Work Phone: 1(175) 720-489005-28-2025 History of Present illness Narrative* Vaishnavi Fry, - 04/15/2025 4:00 PM EDT -Referring Provider for today's consult: Self, Self -Primary Care Provider: Castro Ferrara History of Present Illness Christian Amador is a 75 y.o. male who presents to the [facility] today for consultation regarding his diagnosis of Follow-up (Pt's states he was in the hospital at [facility] in 02/13/2025-03/09/2025 for pneumonia, rectal bleeding, cat scan of abdomen and gastric emptying test done at [facility]. ). I have reviewed his medical, surgical, [...] Laterality: N/A; Surgeon: Ronnie Ferrari MD; Location: [facility] EP EGD DIAGNOSTIC 06/2022 INSERTION CVC TUNNELED N/A 10/10/2021 Laterality: N/A; Surgeon: Remy Ferrer MD; Location: [facility] INTERVENTIONAL RADIOLOGY (VIR) INSERTION CVC TUNNELED N/A 10/03/2021 Laterality: N/A; Surgeon: Kaylin Duran II, MD; Location: [facility] INTERVENTIONAL RADIOLOGY (VIR) PLACEMENT PROBE FOR TRANSESOPHAGEAL ECHOCARDIOGRAPHY N/A 09/23/2021 Laterality: N/A; Surgeon: Sadia Nieto MD; Location: [facility] MAIN OR ESS NASAL DIAGNOSTIC Bilateral 09/20/2021 Laterality: Bilateral; Surgeon: You Wise MD; Location: [facility] MAIN OR ESS SPHENOID SINUSOTOMY WITH REMOVAL TISSUE Right 09/20/2021 Laterality: Right; Surgeon: You Wise MD; Location: [facility] MAIN OR ESS TOTAL ETHMOIDECTOMY Right 09/20/2021 Laterality: Right; Surgeon: You Wise MD; Location[facility] MAIN OR REMOVAL CVC TUNNELED Right 07/07/2016 Laterality: Right; Surgeon: Kaylin Grider MD[facility] INTERVENT[facility]AL RADIOLOGY (VIR) CARDIAC VEIN ELECTRODE [...] N/A; Surgeon: Luigi Mart MD; Location: [facility] EP COLONOSCOPY DIAGNOSTIC N/A 03/20/2016 Laterality: N/A; [...] Versa CARDIAC PACEMAKER PLACEMENT 08/31/2003 Implant: [employer] CHR239 [place] [address] APPENDECTOMY [place] ANES HRT PERICRD SAC&GRT VSLS W/HOUSEKEEPER CLEANING COOKING OXTJ >1MO PO Home Medications Current Outpatient Medications Medication Sig Acetaminophen (TYLENOL PO) Take 1,000 mg by mouth 2 times daily. ALPRAZolam 1 MG tablet Take 1 tablet by mouth at bedtime. B Mqgbhsb-J-Kiqfu Acid (NEPHRO-BALTAZAR PO) Take 1 tablet by [...] at 71 bpm. - Mild TR, mild VT. - RVSP estimated 42 mmHg. - Compared [...] care of Christian Amador. 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 Pt. Is accompanied by his today. [facility] Instructions* Patient Instructions* Vaishnavi Fry DO - 04/15/2025 4:00 PM EDT Plan for repeat liver ultrasound in 6months which can be completed locally Atarax prescribed for itching Follow up in 6months with Kelby Chance [facility] Nuclear medicine Diagnostic study [facility]04-29-2025 Evaluation note* Diagnosis Onset Date Resolution Status Admit Date Early satiety acute March 17, 2025 2:51pm Emesis, persistent acute March 17, 2025 2:51pm Necrosis of colon acute February 182024 2:51pm 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 gastropathy 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 During Christian Vera Dialysis Treatment on 03/04/2025 [...] Testing Complete yes Changes In Status no Almond Procedure Orders Written no Sending RN/Tech Name [...] treatment During Christian Amador's Dialysis Treatment on 03/04/2025 [...] was mistakenly marked as collected by the PARACHUTE INSPECTOR, but it was notcollected properly. Dr. Mel [...] 2x2 gauze placed under window and Kristina CUSTOM SHOE DESIGNER AND MAKER, consulted. Art & Yovani pressures were mildly [...] Unit. 03/02/25 1430 Machine Checks Station/Room Number [id number] Tx Assessment/Safety (Pre/Post) Blood Liters Processed (BLP) 78.2 Transport Modality bed Dialyzer Clearance clear Tolerance to Dialysis Procedure well Treatment Assessment Blood Flow Rate (BFR) mL/min 400 Dialysate Flow Rate (DFR) mL/min 800 mL/min Arterial Pressure (AP) mmHg -250 Venous Pressure (AVIATION BOATSWAIN'S MATE) mmHg 200 Transmembrane Pressure (TMP) mmHg 40 [...] Additional Restrictions no Changes In Status no Almond Procedure Orders Written no Sending RN/Tech Name GIO Paulson Phone [phone] Returning to Patient Care Unit Transport yes [...] treatment During Christian Vera Dialysis Treatment on 03/02/2025 the following interventions to Protect/Monitor Dialysis Line/Access Site were completed: Inspect and monitor dialysis line and access site. Change dressing and caps per protocol Educate patient on home care, and reportable symptoms During Christian Vera Dialysis Treatment on 03/02/2025 the following interventions [...] Additional Restrictions no Changes In Status no Almond Procedure Orders Written no Sending RN/Tech Name [...] edema. During Christian Vera Dialysis Treatment on 02/26/2025 [...] of skin condition was performed by this hand sign writer and Bonnie Layton RN> Skin Assessment: Skin [...] Additional Restrictions no Changes In Status no Almond Procedure Orders Written no Sending RN/Tech Name [...] Arterial Pressure (AP) mmHg -230 Venous Pressure (AVIATION BOATSWAIN'S MATE) mmHg 160 Transmembrane Pressure (TMP) mmHg 30 [...] Additional Restrictions no Changes In Status no Almond Procedure Orders Written no Sending RN/Tech Name Juju RN Phone [phone] Returning to Patient Care Unit Transport yes [...] INR is therapeutic. Juju Su RN Clinical Pbx Mechanic Please note that I am a float career development coordinator/teacher and may not cover the same service every day. Please call the main Care Management office at [phone] for up-to-date coverage. * Plan of Care [...] Outcome: Progressing * Nursing Notes - Lorene Méndez, RN - 02/21/2025 6:42 PM EDT HD [...] tx. Report given to Farrah Anthony RN, [phone]. HD RN remained at bedside for duration of treatment. Pt stable upon departure from Dialysis Unit. 02/21/25 1830 Machine Checks Station/Room Number [id number] Tx Assessment/Safety (Pre/Post) Blood Liters Processed (BLP) 77.3 Transport Modality bed Dialyzer Clearance moderate Tolerance to Dialysis Procedure well Treatment Assessment Blood Flow Rate (BFR) mL/min 400 Dialysate Flow Rate (DFR) mL/min 800 mL/min Arterial Pressure (AP) mmHg -190 Venous Pressure (AVIATION BOATSWAIN'S MATE) mmHg 170 Transmembrane Pressure (TMP) mmHg 10 [...] Additional Restrictions no Changes In Status no Almond Procedure Orders Written no Sending RN/Felix Name GIO Paulson Phone [phone] Returning to Patient Care Unit Transport yes [...] Assessment Report given to Farrah Anthony RN, [phone] * Plan of Care - Lorene Méndez [...] treatment During Christian Vera Dialysis Treatment on 02/21/2025 the following interventions to Protect/Monitor Dialysis Line/Access Site were completed: Inspect and monitor dialysis line and access site. Change dressing and caps per protocol Educate patient on home care, and reportable symptoms During Christian Vera Dialysis Treatment on 02/21/2025 the following interventions [...] Manriquez RN - 02/19/2025 7:44 PM EDT 1821: PTT came back at 95.8. Physician okay'd [...] Negative Hepatitis B Surface Antigen Resulted From [facility] lab Date Hepatitis B Surface Antigen [...] of 2 kg as tolerated During Christian Amador's Dialysis Treatment on 02/19/2025 the following interventions [...] Additional Restrictions none Changes In Status no Almond Procedure Orders Written no Sending RN/Tech Name Abigail POWERS Phone [phone] Returning to Patient Care Unit Transport yes [...] and MV annuloplasty, Aflutter (on warfarin) w/ SALES INTERN-P, CAD, ESRD on HD, MRSA bacteremia and [...] Additional Restrictions none Changes In Status no Almond Procedure Orders Written no Sending RN/Tech Name Ivan POWERS Phone [phone] Returning to Patient Care Unit Transport yes LOC/Significant Event RASS (Crain Agitation-Sedation Scale) 0-->alert and calm Significant Event HD tx completed. Post-Hemodialysis Assessment Report given to To Nalini POWERS 3 hour HD tx completed. Blood returned. NET UF=2kgs. BUS=198pk/min. No medications administered. Stable tx with soft [...] symptoms During Christian Amador's Dialysis Treatment on 02/16/2025 [...] 02/16/2025 10:25 AM EDT Per Farrah with [facility] micro lab ([phone]) who states blood cultures drawn01/2725 have no growth. Expected to finalize tomorrow. Notified hospitalist Dr Rizo. Siobhan Fernandez[place] [phone] * Nursing Notes - Nalini Duke RN [...] Please identify the Thoracic Surgery consult resident tile professional via Icarus. The hand sign writer of this note may not be the resident tile professional or available for immediate responses. Thank you for allowing us to participate in the excellent care of this patient. Kenrick Lopez MD Cardiothoracic Surgery PGY-2 #[id number] * Plan of Care - Linn Serrano [...] Negative Hepatitis B Surface Antigen Resulted From [facility] lab Date Hepatitis B Surface Antigen [...] Additional Restrictions none Changes In Status no Almond Procedure Orders Written no Sending RN/Tech Name Ivan POWERS Phone [phone] Returning to Patient Care Unit Transport yes LOC/Significant Event RASS (Crain Agitation-Sedation Scale) 0-->alert and calm Significant Event HD tx completed. Post-Hemodialysis Assessment Report given to Report to Adiel POWERS 3 hour HD tx completed. Blood returned. NET UF=1kg per pt request. States "usually it's 0.5-1kg". SQH=328ze/min. Coumadin 2mg and Heparin drip started at [...] Adiel Olvera RN [facility] Miscellaneous Notes* Nursing Notes - Adeel Ramon [...] O2 (Room air) Changes In Status no Almond Procedure Orders Written no Sending RN/Tech Name Alyssa Phone [phone] Returning to Patient Care Unit Transport yes [...] - 03/04/2025 2:12 PM EDT During Christian Vera Dialysis Treatment on 03/04/2025 [...] edema. During Christian Vera Dialysis Treatment on 03/04/2025 [...] Testing Complete yes Changes In Status no Almond Procedure Orders Written no Sending RN/Tech Name [...] was mistakenly marked as collected by the PARACHUTE INSPECTOR, but it was notcollected properly. Dr. Mel [...] Care Outcome: Progressing * Nursing Notes - Lornee Méndez RN - 03/02/2025 2:47 PM EDT [...] Unit. 03/02/25 1430 Machine Checks Station/Room Number [id number] Tx Assessment/Safety (Pre/Post) Blood Liters Processed (BLP) 78.2 Transport Modality bed Dialyzer Clearance clear Tolerance to Dialysis Procedure well Treatment Assessment Blood Flow Rate (BFR) mL/min 400 Dialysate Flow Rate (DFR) mL/min 800 mL/min Arterial Pressure (AP) mmHg -250 Venous Pressure (AVIATION BOATSWAIN'S MATE) mmHg 200 Transmembrane Pressure (TMP) mmHg 40 [...] Additional Restrictions no Changes In Status no Almond Procedure Orders Written no Sending RN/Tech Name GIO Paulson Phone [phone] Returning to Patient Care Unit Transport yes [...] symptoms During Christian Amador's Dialysis Treatment on 03/02/2025 [...] treatment During Christian Vera Dialysis Treatment on 02/28/2025 the following interventions for Monitoring and Managing Fluid Electrolyte/Acid Base Balance were completed: Monitor intake and output. Monitor daily weight. Enforce fluid restriction. Manage electrolyte shifts and resulting effect. Assess presence/location of edema. During Christian Vera Dialysis Treatment on 02/28/2025 [...] Additional Restrictions no Changes In Status no Almond Procedure Orders Written no Sending RN/Tech Name [...] of skin condition was performed by this hand sign writer and Bonnie Layton RN> Skin Assessment: Skin [...] Additional Restrictions no Changes In Status no Almond Procedure Orders Written no Sending RN/Tech Name [...] Arterial Pressure (AP) mmHg -230 Venous Pressure (AVIATION BOATSWAIN'S MATE) mmHg 160 Transmembrane Pressure (TMP) mmHg 30 [...] Additional Restrictions no Changes In Status no Almond Procedure Orders Written no Sending RN/Felix Name Juju POWERS Phone [phone] Returning to Patient Care Unit Transport yes [...] RN - 02/23/2025 2:04 PM EDT 02/23/25 5790 Outlier Review Reviewing for: Outlier Meeting Medical [...] INR is therapeutic. Juju Su RN Clinical Pbx Mechanic Please note that I am a float career development coordinator/teacher and may not cover the same service every day. Please call the main Care Management office at [phone] for up-to-date coverage. * Plan of Care [...] tx. Report given to Farrah Anthony RN, [phone]. HD RN remained at bedside for duration of treatment. Pt stable upon departure from Dialysis Unit. 02/21/25 1830 Machine Checks Station/Room Number [id number] Tx Assessment/Safety (Pre/Post) Blood Liters Processed (BLP) 77.3 Transport Modality bed Dialyzer Clearance moderate Tolerance to Dialysis Procedure well Treatment Assessment Blood Flow Rate (BFR) mL/min 400 Dialysate Flow Rate (DFR) mL/min 800 mL/min Arterial Pressure (AP) mmHg -190 Venous Pressure (AVIATION BOATSWAIN'S MATE) mmHg 170 Transmembrane Pressure (TMP) mmHg 10 [...] Additional Restrictions no Changes In Status no Almond Procedure Orders Written no Sending RN/Tech Name GIO Paulson Phone [phone] Returning to Patient Care Unit Transport yes [...] Assessment Report given to Farrah Anthony RN, [phone] * Plan of Care - Lorene Méndez [...] treatment During Christian Vera Dialysis Treatment on 02/21/2025 the following interventions to Protect/Monitor Dialysis Line/Access Site were completed: Inspect and monitor dialysis line and access site. Change dressing and caps per protocol Educate patient on home care, and reportable symptoms During Christian Vera Dialysis Treatment on 02/21/2025 the following interventions [...] Manriquez RN - 02/19/2025 7:44 PM EDT 1821: PTT came back at 95.8. Physician okay'd [...] Negative Hepatitis B Surface Antigen Resulted From [facility] lab Date Hepatitis B Surface Antigen [...] Treatment Record Start Time 1457 Stop Time 182 Fluid Volume Removal 2400 Total Fluid Given [...] Additional Restrictions none Changes In Status no Almond Procedure Orders Written no Sending RN/Tech Name Abigail POWERS Phone [phone] Returning to Patient Care Unit Transport yes [...] and MV annuloplasty, Aflutter (on warfarin) w/ SALES INTERN-P, CAD, ESRD on HD, MRSA bacteremia and [...] Additional Restrictions none Changes In Status no Almond Procedure Orders Written no Sending RN/Tech Name Ivan POWERS Phone [phone] Returning to Patient Care Unit Transport yes LOC/Significant Event RASS (Crain Agitation-Sedation Scale) 0-->alert and calm Significant Event HD tx completed. Post-Hemodialysis Assessment Report given to To Nalini POWERS 3 hour HD tx completed. Blood returned. NET UF=2kgs. JVV=997rx/min. No medications administered. Stable tx with soft [...] 02/16/2025 10:25 AM EDT Per Farrah with [facility] micro lab ([phone]) who states blood cultures drawn01/2725 have no growth. Expected to finalize tomorrow. Notified hospitalist Dr Rizo. Siobhan Fern[place] [phone] * Nursing Notes - Nalini Duke RN [...] Please identify the Thoracic Surgery consult resident tile professional via Icarus. The hand sign writer of this note may not be the resident tile professional or available for immediate responses. Thank you for allowing us to participate in the excellent care of this patient. Kenrick Lopez MD Cardiothoracic Surgery PGY-2 #[id number] * Plan of Care - Linn Serrano [...] Negative Hepatitis B Surface Antigen Resulted From [facility] lab Date Hepatitis B Surface Antigen [...] Additional Restrictions none Changes In Status no Almond Procedure Orders Written no Sending RN/Felix Name Ivan POWERS Phone [phone] Returning to Patient Care Unit Transport yes LOC/Significant Event RASS (Crain Agitation-Sedation Scale) 0-->alert and calm Significant Event HD tx completed. Post-Hemodialysis Assessment Report given to Report to Adiel POWERS 3 hour HD tx completed. Blood returned. NET UF=1kg per pt request. States "usually it's 0.5-1kg". HFL=125bq/min. Coumadin 2mg and Heparin drip started at [...] Adiel Olvera RN [facility] History of Present illness Narrative* Mel Brooks RN - 03/06/2025 12:36 PM EDT Care Management Discharge Note Selected Continued Care - Admitted Since 02/13/2025 Dialysis/Infusion Coordination complete. Service Provider Services Address Phone Fax Patient Preferred [facility] [address], [facility] [address] [phone] -- Internal Comment last updated by ELAYNE Vo 2025 1307 Home HD Confirmed with patients at bedside that patient checks his INR every Sunday and follows up his Woodwind Instrument Repairer with results. to transport patient home. AVS updated. Patient medically stable for discharge per physician/medical team. Patient/Strawberry Grower remain in agreement with the discharge plan. Mel MARIE RN Clinical Pbx Mechanic [address] [place] [address] Can be reached by phone at [phone] or by Secure Chat * [place] [...] Provider Services Address Phone Fax Patient [facility] [address], [place] [facility] [address] [phone] -- Internal Comment last updated by ELAYNE Vo [phone] Home HD ELAYNE Guzman Cheesemaker [phone] Available on secure chat. * Laney Crowe [...] goal of average po being 75%. 6. 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 Met with patient today [...] don't have anynausea or vomiting. Laney Crowe [facility] outpatient dietitian student Cosigned by PAMELA Riggins at 03/03/2025 2:33 PM EDT Associated attestation - Tamiko Boss DT - 03/03/2025 2:33 PM EDT I have reviewed/corrected the Tractor Drill Operator student note and agree with the nutrition plan of care. PAMELA Riggins Pager [phone] * Mel Aldana MD - 03/03/2025 11:54 AM EDT [facility] Medicine Progress Note Patient: Christian Amador, : [...] Daily early evening ROSE Browne, MS Attending Technical Buyer * ELAYNE Vo - 03/02/2025 11:52 AM EDT 03/02/25 1151 Outlier Review Reviewing for: Outlier Meeting Medical Necessity: Yes Medical Necessity Summary: Patient's INR must be 2.5 prior to discharge, today 03/02 INR 1.9 Barriers: Standard Treatment/Therapy Intervention: No intervention needed Action by Other Stakeholder SW;Pbx MechanicSalvage Grinder Comments: CM/SW continue to follow Escalated to: None Required ELAYNE Guzman Cheesemaker [phone] Available on secure Force-A. * Mel Aldana MD - 03/02/2025 10:35 [...] Aldana MD - 03/01/2025 10:36 AM EDT [facility] Medicine Progress Note Patient: Christian Amador, : [...] affect and cognition Data Review Ptt/Pt/Inr: 57.2/17.9/1.5 (02/281-03/01 0539) * Mel Aldana MD - 02/28/2025 11:09 AM EDT [facility] Medicine Progress Note Patient: Christian Amador, : [...] Provider Services Address Phone Fax Patient [facility] [address], [facility] [address] -- Internal Comment last updated by ELAYNE Vo 2025 1307 Home HD Sarah ANGULO, ELAYNE Cheesemaker [phone] Available on secure chat. * Mel Aldana MD - 2025 11:33 AM EDT [facility] Medicine Progress Note Patient: Christian Amador, : [...] Anderson MD - 02/25/2025 8:33 AM EDT [facility] Medicine Progress Note Patient: Christian Amador, : [...] evening MARIA EUGENIA LANDRY M.D,KATHRINEN Attending Nephrology * Hien Anderson MD - [...] status is Full Code Hien Anderson MD [facility] Medicine p3921 Interval History / Subjective No [...] 17/3.74/99/27/81 (02/24 0002) Ptt/Pt/Inr: 75.1/15.5/1.2 (02/24 0433-02/24 104) * ROSE Sinclair - 02/23/2025 3:36 PM [...] day on Sunday ROSE Browne, MS Attending Technical Buyer * Alonzo Renteria, DT - 02/23/2025 3:14 [...] goal of average po being 75%. 6. 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 Christian Amador is a [...] and/or swallowing Food Allergies reviewed:None Cultural or Mu-Ism Restrictions/Preferences: None Pt reports weight loss of [...] 01/15/23 79.4 kg (175 lb) PAMELA Greenberg Pager:[phone] * Hien Anderson MD - 02/23/2025 8:55 AM EDT [facility] Medicine Progress Note Patient: Christian Amador, : [...] Anderson MD - 02/22/2025 8:41 AM EDT [facility] Medicine Progress Note Patient: Christian Amador, : [...] status is Full Code Hien Anderson MD [facility] Medicine p3921 Interval History / Subjective No [...] status is Full Code Hien Anderson MD [facility] Medicine p3921 Interval History / Subjective No [...] spouse. Patient to resume home HD through [facility] dialysis. Spouse to provide transportation. Barriers: Medical readiness (therapeutic INR) Sarah ANGULO, ELAYNE Cheesemaker [phone] Available on secure chat. * Hien Anderson [...] status is Full Code Hien Anderson MD [facility] Medicine p3921 Interval History / Subjective No [...] affect and cognition Data Review WBC/Hgb/Hct/Plts: 9.07/8.2/27.2/169 (04/04 0303) Na/K+/Phos/Mg/Ca: 137/4.0/2.1/1.7/-- (02/20 303) Bun/Creat/Cl/CO2/Glucose: 14/4.40/98/28/99 (02/20 303) Ptt/Pt/Inr: 88.2/14.5/1.1 (02/20 303-02/20 100) * Sue Hollingsworth - 02/20/2025 9:33 AM EDT Pt is currently a Home Hemo pt at [facility] . Pt will need to follow [...] status is Full Code Hien Anderson MD [facility] Medicine p3924 Interval History / Subjective Pt feeling tired [...] day on Sunday ROSE Browne, MS Attending Technical Buyer * Key Rizo MD - 02/18/2025 1:16 PM EDT [facility] Medicine Progress Note Patient: Christian Amador, : [...] 537) Ptt/Pt/Inr: 80.4/16.7/1.4 (02/18 559-02/19 932) * Kelby Elizondo, MACHINE ADJUSTER LEADER CASE TRIM-DEBURRER MACHINE - 02/17/2025 6:12 PM EDT Dialysis Note: [...] Qb 400 ml/min. Thank you, Kelby Elizondo APRN-DEBURRER MACHINE Nephrology Pager #[phone] Physical Examination: Constitutional: no acute distress, appears [...] Component Value Date PTH 283.6 (H) 02/04/2023 [id number] 40.3 09/03/2021 CALCIUM 8.0 (L) 02/14/2025 ICA [...] Rizo MD - 02/17/2025 2:58 PM EDT [facility] Medicine Progress Note Patient: Christian Amador, : [...] HD. Spouse to provide transportation. ELAYNE Guzman Cheesemaker [phone] Available on secure chat. * ROSE Hill [...] MARIA EUGENIA LANDRY M.D,ALEJANDRO Attending Nephrology page [phone] * Key Rizo MD - 02/16/2025 3:05 PM EDT [facility] Medicine Progress Note Patient: Christian Amador, : [...] Ptt/Pt/Inr: 46.0/17.9/1.5 (02/16 431) * Castro Lerner [facility] - 02/16/2025 6:45 AM EDT Department of [...] with any further questions. Name: Castro Lerner [facility] Date/Time: 02/16/2025 6:45 AM * Castro Lerner [facility] - 02/16/2025 6:44 AM EDT Department of Pharmacy Renal Documentation Note Patient: Christian Amador Room/Bed: 1191/A Patient is on Intermittent Hemodialysis Nephrocap Addition Because this patient is on hemodialysis, I have added a daily nephrocap to the orders in IHIS. Please feel free to contact me with any further questions. Name: Castro Lerner RPH Date/Time: 02/16/2025 6:44 AM * Agueda Collins [...] (02/15 447) Ptt/Pt/Inr: 93.3/19.2/1.6 (02/15 447) * Deborah Dolan, COMPUTATIONAL SCIENCES PROFESSOR-S - 02/15/2025 11:19 AM EDT Discharge Planning [...] Name and Contact information: Sean Amador, son [phone]. Anna noted he lives about 30 min from them Reviewed and Updated in Demographics? : Yes Advanced Care Planning Medication Management Does the patient have prescription insurance coverage? : Yes (medicare, AARP) Is the patient on Anticoagulation? : No [facility] [address] [place] [phone] - [address] [facility] [phone] Living Environment and Support System Is the patient from a facility or fdc?: No Living Environment: Condominium (ranch condo with [...] care for themselves at home? : No Health Actuary Does the patient or new accounts representative express financial concerns? : No Patient is a 74 yo male admitted for hematochezia as well as concern for empyema at [facility] (which patient does not have). Care plan includes GI, pulmonary and thoracic surgery consults. Planning for EGDand colonoscopy tomorrow. Patient on IV ATB for concern for pneumonia. Patient has multiple chronicmedical problems. He is on home dialysis. 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 She is extremely supportive. Patient reports that he lives in [place] with his and will return home at discharge. Patient does use some DME at home but no HHC. Patient and family deny any active SDOH concerns. Anna noted that the ambulance company made her pay $1400 before they would transport the patient to [facility] on Sunday since he was not [...] cpox wnl at rest. * Omid Bonilla [facility],PharmD - 02/13/2025 5:17 PM EDT Department of [...] questions, Name: Omid Bonilla RPh, PharmD Phone: [phone] Date/Time: 02/13/2025 5:19 PM documented [facility] History of Present illness Narrative* Mel Brooks RN - 03/06/2025 12:36 PM EDT Care Management Discharge Note Selected Continued Care - Admitted Since 02/13/2025 Dialysis/Infusion Coordination complete. Service Provider Services Address Phone Fax Patient [facility] [address] [facility] [phone] -- Internal Comment last updated by ELAYNE Vo 2025 1307 Home HD Confirmed with patients at bedside that patient checks his INR every Sunday and follows up his Wood[employer] Instrument Repairer with results. to transport patient home. AVS updated. Patient medically stable for discharge per physician/medical team. Patient/Strawberry Grower remain in agreement with the discharge plan. Mel MARIE RN Clinical Pbx Mechanic [address] [place] [address] Can be reached by phone at [phone] or by Secure Chat * Garcia Bay [...] at TDC site. Grew staph epi in 1/, high suspicion for contaminant given specimen and [...] Provider Services Address Phone Fax Patient [facility] [address], [facility] [address] [phone] -- Internal Comment last updated by ELAYNE Vo 2025 1307 Home HD ELAYNE Guzman Cheesemaker [phone] Available on secure chat. * Laney Crowe [...] goal of average po being 75%. 6. 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 Met with patient today [...] don't have anynausea or vomiting. Laney Crowe [facility] outpatient dietitian student Cosigned by PAMELA Riggins at 03/03/2025 2:33 PM EDT Associated attestation - Tamiko Boss DT - 03/03/2025 2:33 PM EDT I have reviewed/corrected the Tractor Drill Operator student note and agree with the nutrition plan of care. PAMELA Riggins Pager [phone] * Mel Aldana MD - 03/03/2025 11:54 AM EDT Hospital Medicine Progress Note Patient: Christian Roberts Marjorie, : 1950, Impression / Plan Christian Amador [...] (03/03 517) Na/K+/Phos/Mg/Ca: 135/4.6/4.5/1.9/9.0 (03/03 517) Bun/Creat/Cl/CO2/Glucose: 24/5./// (03/03 517) Ptt/Pt/Inr: 102.3/23.0/2.1 (03/02 2226-03/03 517) [...] Daily early evening ROSE Browne, MS Attending Technical Buyer * ELAYNE Vo - 03/02/2025 11:52 AM EDT 03/02/25 1151 Outlier Review Reviewing for: Outlier Meeting Medical Necessity: Yes Medical Necessity Summary: Patient's INR must be 2.5 prior to discharge, today 03/02 INR 1.9 Barriers: Standard Treatment/Therapy Intervention: No intervention needed Action by Other Stakeholder SW;Pbx MechanicSalvage Grinder Comments: CM/SW continue to follow Escalated to: None Required ELAYNE Guzman Cheesemaker [phone] Available on secure chat. * Mel Aldana [...] and cognition Data Review Ptt/Pt/Inr: 53.0/21.4/1.9 (03/02 0325-04/14 0813) * Mel Aldana MD - 03/01/2025 10:36 AM EDT [facility] Medicine Progress Note Patient: Christian Amador, : [...] cognition Data Review Ptt/Pt/Inr: 57.2/17.9/1.5 (02/28 2221-03/01 539) * Mel Aldana MD - 02/28/2025 11:09 AM EDT Hospital Medicine Progress Note Patient: [...] Provider Services Address Phone Fax Patient [facility] [address], [facility] [address] -- Internal Comment last updated by ELAYNE Vo 2025 1307 Home HD Sarah ANGULO, [facility] Cheesemaker [phone] Available on secure chat. * Mel Aldana MD - 2025 11:33 AM EDT [facility] Medicine Progress Note Patient: Christian Amador, : [...] MARIA EUGENIA LANDRY M.D,ALEJANDRO Attending Nephrology * Maria Eugenia Clemons ROSE Landry - 02/25/2025 10:24 AM EDT ESRD Note: [...] Anderson MD - 02/25/2025 8:33 AM EDT [facility] Medicine Progress Note Patient: Christian Amador, : [...] status is Full Code Hien Anderson MD [facility] Medicine p3921 Interval History / Subjective No [...] Anderson MD - 02/24/2025 8:41 AM EDT [facility] Medicine Progress Note Patient: Christian Amador, : [...] status is Full Code Hien Anderson MD [facility] Medicine p3926 Interval History / Subjective No [...] WBC/Hgb/Hct/Plts: 6.26/8.8/28.9/159 (02/24 0002) Na/K+/Phos/Mg/Ca: 139/4.0/2.8/1.8/8.6 (02/24 2) Bun/Creat/Cl/CO2/Glucose: 17/3.74/99/27/81 (02/24 2) Ptt/Pt/Inr: 75.1/15.5/1.2 (02/24 0433-02/24 1049) * ROSE [...] day on Sunday ROSE Browne, MS Attending Technical Buyer * Alonzo Renteria, PAMELA - 02/23/2025 3:14 PM EDT NUTRITION RISK [...] goal of average po being 75%. 6. 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 Christian Amador is a [...] and/or swallowing Food Allergies reviewed:None Cultural or Mu-Ism Restrictions/Preferences: None Pt reports weight loss of [...] 01/15/23 79.4 kg (175 lb) PAMELA Greenberg Pager:[phone] * Hien Anderson MD - 02/23/2025 8:55 AM EDT [facility] Medicine Progress Note Patient: JUAN PABLO Emanuel: 1950, Impression / Plan Christian Amador is [...] Anderson MD - 02/22/2025 8:41 AM EDT [facility] Medicine Progress Note Patient: Christian Amador, : [...] status is Full Code Hien Anderson MD [facility] Medicine p3924 Interval History / Subjective No new issues [...] cognition Data Review Ptt/Pt/Inr: 74.0/14.2/1.1 (02/22 0132-02/22 829) * Kaveh Perez MD - 02/21/2025 12:36 [...] Anderson MD - 02/21/2025 9:04 AM EDT [facility] Medicine Progress Note Patient: Christian Amador, : [...] status is Full Code Hien Anderson MD [facility] Medicine p3921 Interval History / Subjective No [...] 28/6.62/99/23/108 (02/21 319) Ptt/Pt/Inr: 93.9/14.8/1.2 (02/21 319-02/21 101) * ELAYNE Vo - 02/20/2025 3:30 PM EDT Care Management Progress Note Plan of Care- Treatment Updates: Currently working on heparin drip bridge to home warfarin. INR must be 2.5-3.5 to be therapeutic. Patient's INR 1.1 today 02/20. Discharge updates: Patient to discharge home with spouse. Patient to resume home HD through [facility]. Spouse to provide transportation. Barriers: Medical readiness (therapeutic INR) Sarah ANGULO, ELAYNE Cheesemaker [phone] Available on secure chat. * Hien Anderson [...] status is Full Code Hien Anderson MD [facility] Medicine p3928 Interval History / Subjective No new issues [...] Bun/Creat/Cl/CO2/Glucose: 14/4.40/98/28/99 (02/20 303) Ptt/Pt/Inr: 88.2/14.5/1.1 (02/20 303-02/20 1009) * Sue Hollingsworth - 02/20/2025 9:33 AM EDT Pt is currently a Home Hemo pt at [facility] . Pt will need to follow [...] status is Full Code Hien Anderson MD [facility] Medicine p3921 Interval History / Subjective Pt [...] day on Sunday ROSE Browne, MS Attending Technical Buyer * Key Rizo MD - 02/18/2025 1:16 PM EDT [facility] Medicine Progress Note Patient: Christian Amador, : [...] (02/18 537) Ptt/Pt/Inr: 80.4/16.7/1.4 (02/18 0559-02/19 932) * Kelby Elizondo, MACHINE ADJUSTER LEADER CASE TRIM-DEBURRER MACHINE - 02/17/2025 6:12 PM EDT Dialysis Note: [...] Qb 400 ml/min. Thank you, Kelby Elizondo APRN-[facility] Nephrology Pager #[phone] Physical Examination: Constitutional: no acute distress, appears [...] Component Value Date PTH 283.6 (H) 02/04/2023 [id number] 40.3 09/03/2021 CALCIUM 8.0 (L) 02/14/2025 ICA [...] Rizo MD - 02/17/2025 2:58 PM EDT Hospital Medicine Progress Note Patient: [...] 17/5.28/98/27/99 (02/17 103) Ptt/Pt/Inr: 109.2/--/-- (02/17 132) * ELAYNE Vo - 02/17/2025 2:48 PM [...] resume home HD. Spouse to provide transportation. Sarah ANGULO, DYE HOUSE WHEEL OPERATOR Cheesemaker [phone] Available on secure chat. * ROSE Hill [...] MARIA EUGENIA LANDRY M.D,ALEJANDRO Attending Nephrology page [phone] * Key Rizo MD - 02/16/2025 3:05 PM EDT [facility] Medicine Progress Note Patient: Christian Amador, : [...] (02/16 431) Ptt/Pt/Inr: 46.0/17.9/1.5 (02/16 431) * Catsro Lerner [facility] - 02/16/2025 6:45 AM EDT Department of [...] with any further questions. Name: Castro Lerner [facility] Date/Time: 02/16/2025 6:45 AM * Castro Lerner [facility] - 02/16/2025 6:44 AM EDT Department of Pharmacy Renal Documentation Note Patient: Christian Amador Room/Bed: 1191/A Patient is on Intermittent Hemodialysis Nephrocap Addition Because this patient is on hemodialysis, I have added a daily nephrocap to the orders in IS. Please feel free to contact me with any further questions. Name: Castro Lerner [facility] Date/Time: 02/16/2025 6:44 AM * Agueda Collins [...] (02/15 447) Ptt/Pt/Inr: 93.3/19.2/1.6 (02/15 447) * Deborah ELEAZAR Dolan-S - 02/15/2025 11:19 AM EDT Discharge Planning [...] Name and Contact information: Sean Amador, son [phone]. Anna noted he lives about 30 min from them Reviewed and Updated in Demographics? : Yes Advanced Care Planning Medication Management Does the patient have prescription insurance coverage? : Yes (medicare, AARP) Is the patient on Anticoagulation? : No [facility] [address] [place] [phone] - [address] [place] [address] Living Environment and Support System Is the patient from a facility or fdc?: No Living Environment: Condominium (ranch condo with [...] care for themselves at home? : No Health Actuary Does the patient or new accounts representative express financial concerns? : No Patient is a 74 yo male admitted for hematochezia as well as concern for empyema at [facility] (which patient does not have). Care plan includes GI, pulmonary and thoracic surgery consults. Planning for EGDand colonoscopy tomorrow. Patient on IV ATB for concern for pneumonia. Patient has multiple chronicmedical problems. He is on home dialysis. 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 She is extremely supportive. Patient reports that he lives in [place] with his and will return home at discharge. Patient does use some DME at home but no HHC. Patient and family deny any active SDOH concerns. Anna noted that the ambulance company made her pay $1400 before they would transport the patient to [facility] from [facility] on Sunday since he was not [...] Collins MD - 02/14/2025 11:58 AM EDT [facility] Medicine Progress Note Patient: Christian Amador, : [...] 13/4.06/98/26/100 (02/14 26) Ptt/Pt/Inr: 98.3/19.5/1.7 (02/14 26-02/14 0701) * Nini Keane RN - 02/13/2025 11:46 [...] questions, Name: Omid Bonilla RPh, PharmD Phone: [phone] Date/Time: 02/13/2025 5:19 PM documented in this encounterZanesville City Hospital04-18-[facility] Hospital course Narrative* Hoda Moore MD [...] Amador during his recent hospital stay at [facility]. As you may know, Christian Amador is [...] request from his line on which grew MRSE. Subsequent repeat culture was negative. ID thought contaminant. He will follow up with his local edge baster for consideration for starting Aranesp versus alternative [...] 03/09/25. He willfollow up with his local post office markup clerk for continued care. Upon discharge the patient's code was Full Code Please see the remainder of this document for relevant data from this admission as well as the patient's discharge instructions and follow-up appointments.. An electronic copy of the patient's records can be obtained via [email or web address] at [email or web address] It has been my pleasure [...] PM Vaishnavi Fry DO CPNGAS CPEAST Other [facility] [address] [place] [address] Follow up Follow up with your Home [...] Sunday, Sunday, Sunday 2 Tablets Sun And Fri NEPHRO-BALTAZAR PO Take 1 tablet by mouth [...] Commonly known as: XIFAXAN documented in this encounterZanesville City Hospital04-18-2025 Hospital course Narrative* Hoda Moore MD [...] Amador during his recent hospital stay at [facility]. As you may know, Christian Amador is [...] request from his line on which grew MRSE. Subsequent repeat culture was negative. ID thought contaminant. He will follow up with his local edge baster for consideration for starting Aranesp versus alternative [...] 03/09/25. He willfollow up with his local post office markup clerk for continued care. Upon discharge the patient's code was Full Code Please see the remainder of this document for relevant data from this admission as well as the patient's discharge instructions and follow-up appointments.. An electronic copy of the patient's records can be obtained via [employer] at [email or web address] It has been my pleasure [...] CEPPUL CPEAST 04/15/2025 4:00 PM Vaishnavi Fry, DO VALLENGAS CPEAST Other [facility] [address] [place] [address] Follow up Follow up with your Home [...] Commonly known as: XIFAXAN documented in this encounterZanesville City Hospital04-18-2025 Procedure note* Alexander Stiles MD - [...] Alexander Stiles MD Division of Nephrology Pager: [phone] * Alexander Stiles MD - 03/04/2025 11:43 [...] Alexander Stiles MD Division of Nephrology Pager: [phone] * Alexander Stiles MD - 02/28/2025 3:33 [...] Alexander Stiles MD Division of Nephrology Pager: [phone] documented in this encounterZanesville City Hospital04-18-2025 Procedure note* Alexander Stiles MD - [...] Stiles MD Division of Nephrology Pager: [phone] * Alexander Stiles MD - 03/04/2025 11:43 [...] Alexander Stiles MD Division of Nephrology Pager: [phone] * Alexander Stiles MD - 02/28/2025 3:33 [...] Alexander Stiles MD Division of Nephrology Pager: [phone] documented in this encounterZanesville City Hospital04-15-2025 Consult note* Garcia Bay MD, PhD [...] No edema CURRENT HOSPITALIZATION/LOS: Admit Date: 02/13/2025 [facility] Hospital LOS: 18 days MEDICAL HISTORY: [...] Laterality: N/A; Surgeon: Ronnie Ferrari MD; Location: [facility] EP EGD DIAGNOSTIC 06/2022 INSERTION CVC TUNNELED N/A 10/10/2021 Laterality: N/A; Surgeon: Remy Ferrer MD; Location: [facility] INTERVENTIONAL RADIOLOGY (VIR) INSERTION CVC TUNNELED N/A 10/03/2021 Laterality: N/A; Surgeon: Kaylin Duran II, MD; Location: [facility] INTERVENTIONAL RADIOLOGY (VIR) PLACEMENT PROBE FOR TRANSESOPHAGEAL ECHOCARDIOGRAPHY N/A 09/23/2021 Laterality: N/A; Surgeon: Sadia Nieto MD; Location: [facility] ROSS MAIN OR ESS NASAL DIAGNOSTIC Bilateral 09/20/2021 Laterality: Bilateral; Surgeon: You Wise MD; [facility] SPHENOID SINUSOTOM[facility] WITH REMOVAL TISSUE Right 09/20/2021 Laterality: Right; Surgeon: You Wise MD; Location: [facility] MAIN OR ESS TOTAL ETHMOIDECTOMY Right 09/20/2021 Laterality: Right; Surgeon: You Wise MD; Location: [facility] MAIN OR REMOVAL CVC TUNNELED Right 07/07/2016 Laterality: Right; Surgeon: Kaylin Grider MD; Location: [facility] INTERVENTIONAL RADIOLOGY (VIR) CARDIAC VEIN ELECTRODE PLACEMENT FOR LV PACING N/A 05/26/2016 Laterality: N/A; Surgeon: Yi Cody MD; Location: [facility] EP PACEMAKER PLACEMENT N/A 05/26/2016 Laterality: N/A; Surgeon: Yi Cody MD; Location: [facility] EP INSERTION CVC TUNNELED Right 05/19/2016 Laterality: Right; Surgeon: Kaylin Grider MD; Location: [facility] INTERVENTIONAL RADIOLOGY (VIR) INSERTION CVC TUNNELED Left 05/18/2016 Laterality: Left; Surgeon: Kaylin Grider MD; [facility] INTER[facility] (VIR) PACEMAKER ELECTRODE REMOVAL N/A 05/08/2016 Laterality: N/A; Surgeon: Luigi Mart MD; Location: [facility] EP COLONOSCOPY DIAGNOSTIC N/A 03/20/2016 Laterality: N/A; Surgeon: Jeremiah García MD; [facility] EP IMPLANT BIVENTRICULAR PACEMAKER TOTAL 08/07/2013 3 leads CARDIAC VEIN ELECTRODE PLACEMENT FOR LV PACING N/A 08/07/2013 Laterality: N/A; Surgeon: Favio Kline MD; Location[facility] EP PACEMAKER ELECTRODE REMOVAL 08/07/2013 Surgeon: Favio Kline MD; Location: [facility] EP AV NODE ABLATION N/A 02/26/2013 Laterality: N/A; Surgeon: Favio Kline MD; Location: [facility] EP CARDIAC PACEMAKER PLACEMENT 10/20/2010 Implant: Medtronic [id number] Versa CARDIAC PACEMAKER PLACEMENT 08/31/2003 Implant: Medtronic [id number] [place] [address] APPENDECTOMY [place] ANES HRT PERICRD SAC&GRT VSLS W/HOUSEKEEPER CLEANING COOKING OXTJ >1MO PO FAMILY HISTORY: Family History [...] 1 tablet by mouth at bedtime. B Jekxwee-I-Zygcd Acid (NEPHRO-BALTAZAR PO) Take 1 tablet by [...] early evening Continuous Infusions: heparin 7 Units/kg/hr (03/03/25628) PRN Meds:Albuterol, hydroxyzine, Melatonin OBJECTIVE FINDINGS: Vital [...] and MV annuloplasty, Aflutter (on warfarin) w/ SALES INTERN-P, CAD, ESRD on HD, MRSA bacteremia and [...] intervention given apparent chronicity of collection. Decompensated [facility] cirrhosis history - HE: rifaximin 550mg [...] Laterality: N/A; Surgeon: Ronnie Ferrari MD; Location: [facility] EP EGD DIAGNOSTIC 06/2022 INSERTION CVC TUNNELED N/A 10/10/2021 Laterality: N/A; Surgeon: Remy Ferrer MD; Location: [facility] INTERVENTIONAL RADIOLOGY (VIR) INSERTION CVC TUNNELED N/A 10/03/2021 Laterality: N/A; Surgeon: Kaylin Duran II, MD; Location: [facility] INTERVENTIONAL RADIOLOGY (VIR) PLACEMENT PROBE FOR TRANSESOPHAGEAL ECHOCARDIOGRAPHY N/A 09/23/2021 Laterality: N/A; Surgeon: Sadia Nieto MD; Location[facility] MAIN OR ESS NASAL DIAGNOSTIC Bilateral 09/20/2021 Laterality: Bilateral; Surgeon: You Wise MD; [facility] SPHENOID SINUSOTOMY WITH REMOVAL TISSUE Right 09/20/2021 Laterality: Right; Surgeon: You Wise MD; [facility] MA[facility] OR ESS TOTAL ETHMOIDECTOMY Right 09/20/2021 Laterality: Right; Surgeon: You Wise MD; Location[facility] MAIN OR REMOVAL CVC TUNNELED Right 07/07/2016 Laterality: Right; Surgeon: Kaylin Grider MD; Location: [facility] INTERVENTIONAL RADIOLOGY (VIR) CARDIAC VEIN ELECTRODE PLACEMENT FOR LV PACING N/A 05/26/2016 Laterality: N/A; Surgeon: Yi Cody MD; Location: [facility] EP PACEMAKER PLACEMENT N/A 05/26/2016 Laterality: N/A; Surgeon: Yi Cody MD; Location: [facility] EP INSERTION CVC TUNNELED Right 05/19/2016 Laterality: Right; Surgeon: Kaylin Grider MD; [facility] INTER[facility] (VIR) INSERTION CVC TUNNELED [...] Versa CARDIAC PACEMAKER PLACEMENT 08/31/2003 Implant: Medtronic [id number] [place] [address] APPENDECTOMY [place] ANES HRT PERICRD SAC&GRT VSLS W/HOUSEKEEPER CLEANING COOKING OXTJ >1MO PO CURRENT MEDICATIONS ALPRAZolam 1 [...] 2 mg Oral Once per day on Sundayday And Warfarin 1 mg Oral Once per [...] and MV annuloplasty, Aflutter (on warfarin) w/ SALES INTERN-P, CAD, ESRD on HD, MRSA bacteremia and [...] result in delay of patient's colonoscopy Decompensated [facility] cirrhosis history - HE: continue rifaximin [...] Christian Amador is a 74 y.o.male with [facility] cirrhosis c/b HE, rheumatic heart disease s/p [...] additional questions and concerns. Fernanda Marcos MD Financial Operations Analyst of Internal Medicine Division of Gastroenterology, Hepatology, and Nutrition Pager: [phone] * Layo Steward MD - 02/13/2025 1:45 [...] He originally presented to a hospital in [place], [place] with subacute worsening of chronic weakness [...] minimal workplace exposures. Never in the or skilled nursing. No history of lung cancer. No history [...] Laterality: N/A; Surgeon: Ronnie Ferrari MD; Location: [facility] EP EGD DIAGNOSTIC 06/2022 INSERTION CVC TUNNELED N/A 10/10/2021 Laterality: N/A; Surgeon: Remy Ferrer MD; Location: [facility] INTERVENTIONAL RADIOLOGY (VIR) INSERTION CVC TUNNELED N/A 10/03/2021 Laterality: N/A; Surgeon: Kaylin Duran II, MD; Location: [facility] INTERVENTIONAL RADIOLOGY (VIR) PLACEMENT PROBE FOR TRANSESOPHAGEAL ECHOCARDIOGRAPHY N/A 09/23/2021 Laterality: N/A; Surgeon: Sadia Nieto MD; Location: [facility] MAIN OR ESS NASAL DIAGNOSTIC Bilateral 09/20/2021 Laterality: Bilateral; Surgeon: You Wise MD; Location: [facility] MAIN OR ESS SPHENOID SINUSOTOMY WITH REMOVAL TISSUE Right 09/20/2021 Laterality: Right; Surgeon: You Wise MD; [facility] TOTAL ETHMOIDECTOMY Right 09/20/2021 Laterality: Right; Surgeon: You Wise MD; Location[facility] MAIN OR REMOVAL CVC TUNNELED Right 07/07/2016 Laterality: Right; Surgeon: Kaylin Grider MD; Location: [facility] INTERVENTIONAL RADIOLOGY (VIR) CARDIAC VEIN ELECTRODE [...] Versa CARDIAC PACEMAKER PLACEMENT 08/31/2003 Implant: Medtronic [id number] [place] [address] APPENDECTOMY [place] ANES HRT PERICRD SAC&GRT VSLS W/HOUSEKEEPER CLEANING COOKING OXTJ >1MO PO Family History Problem Relation [...] This is unlikely to be the main sales route driver of his dyspnea, considering his very [...] effusion is chronic andstable appearing compared to 202 and we have very little concern for [...] check a sputum culture. Israel Kemp MD computer customer support specialist Division of Pulmonary Medicine, Critical Care and Sleep Dept of Internal Medicine [facility] * Shana Lew MD - 02/13/2025 1:34 PM EDTAssociated Order(s): IP CONSULT TO INTERVENTIONAL RADIOLOGY Interventional Radiology Consult Note [facility] automotive service writer [id number] - [facility] automotive service writer [id number] PATIENT: Mr. Christian Amador Admission Date: 02/13/2025 [...] Laterality: N/A; Surgeon: Ronnie Ferrari MD; Location: [facility] RICK EGD DIAGNOSTIC 06/2022 INSERTION CVC TUNNELED N/A 10/10/2021 Laterality: N/A; Surgeon: Remy Ferrer MD; Location: [facility] INTERVENTIONAL RADIOLOGY (VIR) INSERTION CVC TUNNELED N/A 10/03/2021 Laterality: N/A; Surgeon: Kaylin Duran II, MD; Location: [facility] INTERVENTIONAL RADIOLOGY (VIR) PLACEMENT PROBE FOR [...] Laterality: Right; Surgeon: Kaylin Grider MD; Location: [facility] INTERVENTIONAL RADIOLOGY (VIR) CARDIAC VEIN ELECTRODE PLACEMENT FOR LV PACING N/A 05/26/2016 Laterality: N/A; Surgeon: Yi Cody MD; [facility] EP PACEMAKER PLACEMENT N/A 05/26/2016 Laterality: N/A; Surgeon: Yi Cody MD; Location: [facility] EP INSERTION CVC TUNNELED Right 05/19/2016 Laterality: Right; Surgeon: Kaylin Grider MD; Location: [facility] INTERVENTIONAL RADIOLOGY (VIR) INSERTION CVC TUNNELED Left 05/18/2016 Laterality: Left; Surgeon: Kaylin Grider MD; Location: [facility] INTERVENTIONAL RADIOLOGY (VIR) PACEMAKER ELECTRODE REMOVAL [...] Versa CARDIAC PACEMAKER PLACEMENT 08/31/2003 Implant: Medtronic [id number] [place] [address] APPENDECTOMY [place] ANES HRT PERICRD SAC&GRT VSLS W/HOUSEKEEPER CLEANING COOKING OXTJ >1MO PO Medications Prior to Admission Medication Sig Dispense Refill Last Dose/Taking Acetaminophen (TYLENOL PO) Take by mouth. ALPRAZolam 1 MG tablet Take 1 tablet by mouth at bedtime. B Rzdamwl-I-Uijee Acid (NEPHRO-BALTAZAR PO) Take 1 tablet by [...] care of your patient. MARIA EUGENIA LANDRY M.D,KATHRINEN Attending Nephrology * Mindi Lozano MD - 02/13/2025 11:59 AM EDTAssociated Order(s): IP CONSULT TO SURGERY - THORACIC THORACIC SURGERY CONSULT NOTE Patient Name: Christian Amador Admit Date: 02/13/2025 [facility] Hospital: LOS: 0 days Date of [...] appendectomy; pr anes hrt pericrd sac&grt vsls w/flame degreaser oxtj >1mopo; ep implant biventricular pacemaker total [...] mouth at bedtime. 01/18/24 Historical Provider B Hlhdjdf-L-Apzma Acid (NEPHRO-BALTAZAR PO) Take 1 tablet by [...] Constitutional: Well-developed, well-nourished, in no distress. Skin/Wounds: [place], warm and dry Neurological: Awake, alert, follows [...] study was sent from an outside facility [facility] for support of clinical care of the patient within the [facility]. XR CHEST (OUTSIDE IMAGE) Result Date: 02/13/2025 Outside Imaging Study for Support of Clinical Care. This study was sent from an outside facility [facility] for support of clinical care of the patient within the [facility] system. CT CHEST (OUTSIDE IMAGE) Result Date: 02/13/2025 Outside Imaging Study for Support of Clinical Care. This study was sent from an outside facility [facility] for support of clinical care of the patient within the [facility]. Cosigned by Galileo Nash MD at 02/18/2025 4:59 PM EDT documented [facility] Consult note* Garcia Bay MD, PhD [...] No edema CURRENT HOSPITALIZATION/LOS: Admit Date: 02/13/2025 [facility] Hospital LOS: 18 days MEDICAL HISTORY: [...] Laterality: N/A; Surgeon: Ronnie Ferrari MD; [facility]/2022 INSERTION CVC TUNNELED N/A 10/10/2021 Laterality: N/A; Surgeon: Remy Ferrer MD; Location: [facility] INTERVENTIONAL RADIOLOGY (VIR) INSERTION CVC TUNNELED N/A 10/03/2021 Laterality: N/A; Surgeon: Kaylin Duran II, MD; Location: [facility] INTERVENTIONAL RADIOLOGY (VIR) PLACEMENT PROBE FOR [...] Versa CARDIAC PACEMAKER PLACEMENT 08/31/2003 Implant: Medtronic [id number] [place] [address] APPENDECTOMY [place] ANES HRT PERICRD SAC&GRT VSLS W/HOUSEKEEPER CLEANING COOKING OXTJ >1MO PO FAMILY HISTORY: Family History [...] 1 tablet by mouth at bedtime. B Hucfskd-S-Nydtu Acid (NEPHRO-BALTAZAR PO) Take 1 tablet by [...] and MV annuloplasty, Aflutter (on warfarin) w/ SALES INTERN-P, CAD, ESRD on HD, MRSA bacteremia and [...] intervention given apparent chronicity of collection. Decompensated [facility] cirrhosis history - HE: rifaximin 550mg [...] N/A; Surgeon: Ronnie Ferrari MD; [facility] EGD DIAGNOSTIC 06/2022 INSERTION CVC TUNNELED N/A [...] Laterality: Right; Surgeon: Kaylin Grider MD; Location: [facility] INTERVENTIONAL RADIOLOGY (VIR) CARDIAC VEIN ELECTRODE PLACEMENT FOR LV PACING N/A 05/26/2016 Laterality: N/A; Surgeon: Yi Cody MD; Location[facility] EP PACEMAKER PLACEMENT N/A 05/26/2016 Laterality: N/A; Surgeon: Yi Cody MD; Location: [facility] EP INSERTION CVC TUNNELED Right 05/19/2016 Laterality: Right; Surgeon: Kaylin Grider MD; Location: [facility] INTERVENTIONAL RADIOLOGY (VIR) INSERTION CVC TUNNELED Left 05/18/2016 Laterality: Left; Surgeon: Kaylin Grider MD; Location: [facility] INTERVENTIONAL RADIOLOGY (VIR) PACEMAKER ELECTRODE REMOVAL [...] Versa CARDIAC PACEMAKER PLACEMENT 08/31/2003 Implant: Medtronic [id number] [place] [address] APPENDECTOMY [place] ANES HRT PERICRD SAC&GRT VSLS W/HOUSEKEEPER CLEANING COOKING OXTJ >1MO PO CURRENT MEDICATIONS ALPRAZolam 1 [...] and MV annuloplasty, Aflutter (on warfarin) w/ SALES INTERN-P, CAD, ESRD on HD, MRSA bacteremia and [...] result in delay of patient's colonoscopy Decompensated [facility] cirrhosis history - HE: continue rifaximin [...] additional questions and concerns. Fernanda Marcos MD Financial Operations Analyst of Internal Medicine Division of Gastroenterology, Hepatology, and Nutrition Pager: [phone] * Layo Steward MD - 02/13/2025 1:45 [...] He originally presented to a hospital in [place], [place] with subacute worsening of chronic weakness [...] minimal workplace exposures. Never in the or skilled nursing. No history of lung cancer. No history [...] N/A; Surgeon: Ronnie Ferrari MD; [facility] EGD DIAGNOSTIC 06/2022 INSERTION CVC TUNNELED [...] Laterality: Right; Surgeon: Yuo Wise MD; [facility] MAIN OR REMOVAL CVC TUNNELED Right 07/07/2016 Laterality: Right; Surgeon: Kaylin Grider MD; Location: [facility] INTERVENTIONAL RADIOLOGY (VIR) CARDIAC VEIN ELECTRODE PLACEMENT FOR LV PACING N/A 05/26/2016 Laterality: N/A; Surgeon: Yi Cody MD; Location: [facility] EP PACEMAKER PLACEMENT N/A 05/26/2016 Laterality: N/A; Surgeon: Yi Cody MD; Location: [facility] EP INSERTION CVC TUNNELED Right 05/19/2016 Laterality: Right; Surgeon: Kaylin Grider MD; [facility] INTER[facility]AL RAD[facility]OLOGY (VIR) INSERTION CVC TUNNELED Left 05/18/2016 Laterality: Left; Surgeon: Kaylin Grider MD; [facility] INTERVENTIONAL RADIOLOGY (VIR) PACEMAKER ELECTRODE REMOVAL [...] Versa CARDIAC PACEMAKER PLACEMENT 08/31/2003 Implant: Medtronic [id number] [place] [address] APPENDECTOMY [place] ANES HRT PERICRD SAC&GRT VSLS W/HOUSEKEEPER CLEANING COOKING OXTJ >1MO PO Family History Problem Relation [...] This is unlikely to be the main sales route driver of his dyspnea, considering his very [...] check a sputum culture. Israel Kemp MD computer customer support specialist Division of Pulmonary Medicine, Critical Care and Sleep Dept of Internal Medicine [facility] * Shana Lew MD - 02/13/2025 1:34 PM EDTAssociated Order(s): IP CONSULT TO INTERVENTIONAL RADIOLOGY Interventional Radiology Consult Note [facility] automotive service writer [id number] - [facility] automotive service writer [id number] PATIENT: Mr. Christian Amador Admission Date: 02/13/2025 [...] from consult to procedure. Cosigned by Dilan Clakr MD at 02/13/2025 2:03 PM EDT * [...] CHAMBER SYSTEM N/A 04/02/2024 Laterality: N/A; Surgeon: Ronnei Ferrari MD; Location[facility] EP EGD DIAGNOSTIC 06/2022 INSERTION CVC TUNNELED N/A 10/10/2021 Laterality: N/A; Surgeon: Remy Ferrer MD; Location: [facility] INTERVENTIONAL RADIOLOGY (VIR) INSERTION CVC TUNNELED N/A 10/03/2021 Laterality: N/A; Surgeon: Kaylin Duran II, MD; Location: [facility] INTERVENTIONAL RADIOLOGY (VIR) PLACEMENT PROBE FOR [...] Laterality: Right; Surgeon: Kaylin Grider MD; Location: [facility] INTERVENTIONAL RADIOLOGY (VIR) CARDIAC VEIN ELECTRODE PLACEMENT FOR LV PACING N/A 05/26/2016 Laterality: N/A; Surgeon: Yi Cody MD; Location: [facility] EP PACEMAKER PLACEMENT N/A 05/26/2016 Laterality: N/A; Surgeon: Yi Cody MD; Location: [facility] EP INSERTION CVC TUNNELED Right 05/19/2016 Laterality: Right; Surgeon: Kaylin Grider MD; Location: [facility] INTERVENTIONAL RADIOLOGY (VIR) INSERTION CVC TUNNELED Left 05/18/2016 Laterality: Left; Surgeon: Kaylin Grider MD; [facility] INTERVENTIONAL RADIOLOGY (VIR) PACEMAKER ELECTRODE REMOVAL N/A 05/08/2016 Laterality: N/A; Surgeon: Luigi Mart MD; Location: [facility] EP COLONOSCOPY DIAGNOSTIC N/A 03/20/2016 Laterality: N/A; Surgeon: Jeremiah García MD; [facility] END[facility]COPY EP IMPLANT BIVENTRICULAR PACEMAKER TOTAL 08/07/2013 3 leads CARDIAC VEIN ELECTRODE PLACEMENT FOR LV PACING N/A 08/07/2013 Laterality: N/A; Surgeon: Favio Kline MD; Location: [facility] EP PACEMAKER ELECTRODE REMOVAL 08/07/2013 Surgeon: Favio Kline MD; Location[facility] AV NODE ABLATION N/A 02/26/2013 Laterality: N/A; Surgeon: Favio Kline MD; [facility] EP CARDIAC PACEMAKER PLACEMENT 10/20/2010 Implant: Medtronic [id number] Versa CARDIAC PACEMAKER PLACEMENT 08/31/2003 Implant: Medtronic [id number] [place] [address] APPENDECTOMY [place] ANES HRT PERICRD SAC&GRT VSLS W/HOUSEKEEPER CLEANING COOKING OXTJ >1MO PO Medications Prior to Admission Medication Sig Dispense Refill Last Dose/Taking Acetaminophen (TYLENOL PO) Take by mouth. ALPRAZolam 1 MG tablet Take 1 tablet by mouth at bedtime. B Swjmwjl-O-Lrnnr Acid (NEPHRO-BALTAZAR PO) Take 1 tablet by [...] 1 Tablet Sunday, Sunday, Sunday 2 Tablets Mon [place] pantoprazole [address] tablet [address] [...] Patient Name: Christian Amador Admit Date: 02/13/2025 [facility] Hospital: LOS: 0 days Date of [...] appendectomy; pr anes hrt pericrd sac&grt vsls w/flame degreaser oxtj >1mopo; ep implant biventricular pacemaker total [...] mouth at bedtime. 01/18/24 Historical Provider B Lshoppf-Q-Cwuiq Acid (NEPHRO-BALTAZAR PO) Take 1 tablet by [...] Constitutional: Well-developed, well-nourished, in no distress. Skin/Wounds: [place], warm and dry Neurological: Awake, alert, follows [...] study was sent from an outside facility [facility] for support of clinical care of the [facility] within [facility]. XR CHEST (OUTSIDE IMAGE) Result Date: 02/13/2025 Outside Imaging Study for Support of Clinical Care. This study was sent from an outside facility [facility] for support of clinical care of the patient within [facility]. CT CHEST (OUTSIDE IMAGE) Result Date: 02/13/2025 Outside Imaging Study for Support of Clinical Care. This study was sent from an outside facility [facility] for support of clinical care of the patient within the [facility]. Cosigned by Galileo Nash MD at 02/18/2025 4:59 PM EDT documented [facility] Discharge instructions* Discharge Instructions* Hoda Moore MD - 02/16/2025 10:21 AM EDT Patient Experience Survey Reminder You may receive a survey in the mail within a few weeks regarding your hospitalization. This helps us to improve the care and services we provide at [facility]. We truly appreciate you taking the time [...] Fibrosis Pulmonary Hypertension Sarcoidosis Scheduling Please call [phone] to schedule this appointment. Many appointments can also be scheduled online using [employer] by visiting ([email or web address]). The outpatient pulmonary clinics are at the following locations: Outpatient Care [facility]; [address] [facility] [address] [facility] Outpatient Care; [address] [facility] [address] Outpatient [facility] [place]; [address], [facility] [address] Outpatient [facility] [place], [address], [address], [place] [address] You can go to the following website for more information: [email or web address] Please review the first page of your [...] your discharge, please call our office at [phone] or your floor and one of our nurses will call you back. Division of Hospital Medicine [phone] documented in this encounterOS[facility] Hospital Discharge instructions* Discharge Instructions* Hoda Moore MD - 02/16/2025 10:21 AM EDT Patient Experience Survey Reminder You may receive a survey in the mail within a few weeks regarding your hospitalization. This helps us to improve the care and services we provide at [facility]. We truly appreciate you taking the time [...] Fibrosis Pulmonary Hypertension Sarcoidosis Scheduling Please call [phone] to schedule this appointment. Many appointments can also be scheduled online using [employer] by visiting ([email or web address]). The outpatient pulmonary clinics are at the following locations: Outpatient Care [facility]; [address] [id number] [facility] Care; [address] [facility] [address] Outpatient Care [place]; [address] [facility] [address] Outpatient Care [place], [address], [address], [place] [address] You can go to the following website for more information: [email or web address] Please review the first page of your [...] your discharge, please call our office at [phone] or your floor and one of our nurses will call you back. Division of Hospital Medicine [phone] documented in this encounterU [facility]03[facility] History and physical note* Nayeli Casillas MD [...] N/A; Surgeon: Ronnie Ferrari MD; [facility] EGD DI[facility]STIC 06/2022 INSERTION CVC TUNNELED [...] Bilateral; Surgeon: You Wise MD; [facility] SPHENOID SINUSOTOM[facility] WITH REMOVAL TISSUE Right 09/20/2021 Laterality: Right; Surgeon: You Wise MD; [facility] MAIN OR ESS TOTAL ETHMOIDECTOMY Right 09/20/2021 Laterality: Right; Surgeon: You Wise MD; Location: [facility] MAIN OR REMOVAL CVC TUNNELED Right 07/07/2016 Laterality: Right; Surgeon: Kaylin Grider MD; Location: [facility] INTERVENTIONAL RADIOLOGY (VIR) CARDIAC VEIN ELECTRODE PLACEMENT FOR LV PACING N/A 05/26/2016 Laterality: N/A; Surgeon: Yi Cody MD; Location: [facility] EP PACEMAKER PLACEMENT N/A 05/26/2016 Laterality: N/A; Surgeon: Yi Cody MD; Location: [facility] EP INSERTION CVC TUNNELED Right 05/19/2016 Laterality: Right; Surgeon: Kaylin Grider MD; Location: [facility] INTERVENTIONAL RADIOLOGY (VIR) INSERTION CVC TUNNELED Left 05/18/2016 Laterality: Left; Surgeon: Kaylin Grider MD; Location: [facility] INTERVENTIONAL RADIOLOGY (VIR) PACEMAKER ELECTRODE REMOVAL N/A 05/08/2016 Laterality: N/A; Surgeon: Luigi Mart MD; [facility] COL[facility] DIAGNOSTIC N/A 03/20/2016 Laterality: N/A; Surgeon: Jeremiah García MD; Location: [facility] ENDOSCOPY EP IMPLANT BIVENTRICULAR PACEMAKER TOTAL [...] Versa CARDIAC PACEMAKER PLACEMENT 08/31/2003 Implant: Medtronic [id number] [place] [address] APPENDECTOMY [place] ANES HRT PERICRD SAC&GRT VSLS W/HOUSEKEEPER CLEANING COOKING OXTJ >1MO PO Social History he reports [...] (TYLENOL PO) Sig: Take by mouth. B Avobsjo-S-Wczzu Acid (NEPHRO-BALTAZAR PO) Sig: Take 1 tablet [...] pantoprazole [address] tablet DR Sig: Take 1 tablet by mouth daily. [...] and cognition Data Review documented in this encounterOS[facility] History and physical note* Nayeli Casillas MD [...] Laterality: N/A; Surgeon: Ronnie Ferrari MD; Location: [facility] EP EGD DIAGNOSTIC 06/2022 INSERTION CVC TUNNELED N/A 10/10/2021 Laterality: N/A; Surgeon: Remy Ferrer MD; Location: [facility] INTERVENTIONAL RADIOLOGY (VIR) INSERTION CVC TUNNELED N/A 10/03/2021 Laterality: N/A; Surgeon: Kaylin Duran II, MD; Location: [facility] INTERVENTIONAL RADIOLOGY (VIR) PLACEMENT PROBE FOR TRANSESOPHAGEAL ECHOCARDIOGRAPHY N/A 09/23/2021 Laterality: N/A; Surgeon: Sadia Nieto MD; Location: [facility] MAIN OR ESS NASAL DIAGNOSTIC Bilateral 09/20/2021 Laterality: Bilateral; Surgeon: You Wise MD; Location: [facility] MAIN OR ESS SPHENOID SINUSOTOMY WITH REMOVAL TISSUE Right 09/20/2021 Laterality: Right; Surgeon: You Wise MD; [facility] TOTAL ETHMOIDECTOMY Right 09/20/2021 Laterality: Right; Surgeon: You Wise MD; Location: [facility] MAIN OR REMOVAL CVC TUNNELED Right 07/07/2016 Laterality: Right; Surgeon: Kaylin Grider MD; Location: [facility] INTERVENTIONAL RADIOLOGY (VIR) CARDIAC VEIN ELECTRODE PLACEMENT FOR LV PACING N/A 05/26/2016 Laterality: N/A; Surgeon: Yi Cody MD; Location: [facility] EP PACEMAKER PLACEMENT N/A 05/26/2016 Laterality: N/A; Surgeon: Yi Cody MD; Location: [facility] EP INSERTION CVC TUNNELED Right 05/19/2016 Laterality: Right; Surgeon: Kaylin Grider MD; Location: [facility] INTERVENTIONAL RADIOLOGY (VIR) INSERTION CVC TUNNELED Left 05/18/2016 Laterality: Left; Surgeon: Kaylin Grider MD; Location: [facility] INTERVENTIONAL RADIOLOGY (VIR) PACEMAKER ELECTRODE REMOVAL N/A 05/08/2016 Laterality: N/A; Surgeon: Luigi Mart MD; Location: [facility] EP COLONOSCOPY DIAGNOSTIC N/A 03/20/2016 Laterality: N/A; Surgeon: Jeremiah García MD; [facility] [facility] ENDOSCOPY EP IMPLANT BIVENTRICULAR PACEMAKER TOTAL 08/07/2013 3 leads CARDIAC VEIN ELECTRODE PLACEMENT FOR LV PACING N/A 08/07/2013 Laterality: N/A; Surgeon: Favio Kline MD; [facility] EP PACEMAKER ELECTRODE REMOVAL 08/07/2013 Surgeon: Favio Kline MD; [facility] EP AV NODE ABLATION N/A 02/26/2013 Laterality: N/A; Surgeon: Favio Kline MD; Location: [facility] EP CARDIAC PACEMAKER PLACEMENT 10/20/2010 Implant: Medtronic [id number] Versa CARDIAC PACEMAKER PLACEMENT 08/31/2003 Implant: Medtronic [id number] [place] [address] APPENDECTOMY [place] ANES HRT PERICRD SAC&GRT VSLS W/HOUSEKEEPER CLEANING COOKING OXTJ >1MO PO Social History he reports [...] (TYLENOL PO) Sig: Take by mouth. B Sgmvzfi-J-Siniy Acid (NEPHRO-BALTAZAR PO) Sig: Take 1 tablet [...] pantoprazole [address] tablet DR Sig: Take 1 tablet by mouth daily. [...] and cognition Data Review [facility] Discharge summary Author Kaveh Hadley [facility] Note Date/Time February 13, 2025 6:0 7am [facility] Medical Records Department [address] [place] [address] Emergency Department Summary 02/12/25 MR#: [id number] Acct: [id number] Name: CHRISTIAN AMADOR Rep #:[id number] : 1950 74 From: Kaveh Hadley DO [...] on a medication with high iron supplementation. [facility] Medical History Pleural effusion associated with hepatic disorder ABLA (acute blood loss anemia) Anemia requiring transfusions Atherosclerotic heart disease of [place] coronary artery without angina pectoris Cirrhosis HLD (hyperlipidemia) Other specified cardiac dysrhythmias ESRD (end stage renal disease) on dialysis CKD stage G5/A1, GFR <15 and albumin creatinine ratio <30 mg/g Sepsis Vitamin D insufficiency Polyneuropathy Mild cognitive impairment Epilepsy rn long term care (current) use of anticoagulants History of rheumatic [...] warfarin 2 mg tablet 2 mg PO .m-sun12/16/24/06/12 History amoxicillin 500 mg capsule 2,000 mg [...] has an empyema we will discussed with [facility] for transfer as he has been [...] with this plan will reach out to [facility] for transfer. After several hours of waiting callback from physician the patient will ultimately be excepted and transferred down to [facility] by Dr. Weber. They were updated with [...] 74.5 H Lymph % (Auto) 13.1 L [place] % (Auto) 9.3 Eos % (Auto) 1.7 [...] prostate. Correlation with PSA recommended. Reading Location: [id number] Chest CT 02/12/25 23:02 IMPRESSION: 1. Moderate-sized [...] Correlation with prior imaging recommended. Reading Location: [facility] Discharge Plan Triage Chief Complaint: GI Bleed [...] [Jantoven] 1 mg tablet 1 mg PO .sun Protocol: Dose Management Condition: Sunday Dose/Route: 1 [...] DO [Primary Care Provider] - Print Language: [place] Islander Disposition Disposition: DC/Tx to Another Type of HCF What to do if you have Problems For any increased pain, shortness of breath, bleeding, nausea or vomiting, chestpain, or any unexpected problems, contact your Primary Care Provider. Call [facility] ([phone]) or report to the closest Emergency Room. Call 911 if necessary. 02/13/25 0559 <Electronically signed by Kaveh Hadley DO> Cosigner Signature (if applicable): CC: Dr. 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, [facility] new accounts representative called to let the agency know [...] Care Unit Transport yes Sending RN/Tech Name [facility] RN Cognitive/Neuro/Behavioral WDL Cognitive/Neuro/Behavioral WDL WDL Cardiovascular WDL [...] Selected Services Address Phone Fax Patient Preferred [facility] [address], [place] [address] [phone] -- Internal Comment last updated by ELAYNE [...] identified: None Signed, Rosangela MARIE, RN Clinical Pbx Mechanic/ Float * Nursing Notes - Ayana Crouch [...] Yes Name and Contact information: Anna Mcguire [phone] Adult Child(jane), List All Adult Children: Yes Name and Contact information: Alina Guillen [phone] Would you like to add additional adult children?: Yes Name and Contact information: Sean Amador [phone] Parent(s) - List All Living Parents: No [...] the patient on Anticoagulation? : No [facility] [address], [address] [place] [address] Living Environment and Support System Is the patient from a facility or fdc?: No Living Environment: House Patient Caregiving Responsibilities: Self, Spouse Patient-identified caregiver/support network: Family Who does the patient identify as a teachable caregiver(s)?: Spouse or Partner Services Does the patient use a home health or hospice agency?: No Current with dialysis?: Yes Dialysis Overview Updated?: Yes Does the patient use any community programs or services?: No Does patient use DME? : walker, straight cane DME provider name and contact: unknown Would [...] care for themselves at home? : No Health Actuary Does the patient or new accounts representative express financial concerns? : No Signed, Rosangela MARIE, RN Clinical Pbx Mechanic/ Float * Nursing Notes - Farrah Schafer RN - 12/18/2024 1:32 PM EST Received Christian Amador to [place] [phone] from outside ED Transferred to bed without incident. Vital signs stable. Pain level is good. Pt oriented to room, call light, and bed alarms. Bed in low position, siderails elevated x2 to allow for pt mobility and bed alarm set. MCB tablet offered, pt acceptedAssessment complete. documented in this encounter[facility] Nurse Note* Nursing Notes - Shikha Johnson [...] Care Unit Transport yes Sending RN/Tech Name [facility] RN Cognitive/Neuro/Behavioral WDL Cognitive/Neuro/Behavioral WDL WDL Cardiovascular WDL [...] Post-Hemodialysis Assessment Report given to Katherine POWERS [facility]01-31-2025 Plan of care note* Plan of Care - Shikha Johnson RN - 12/19/2024 4:48 PM EST Problem: Hemodialysis Goal: Safe, Effective Therapy Delivery Outcome: Progressing Goal: Effective Tissue Perfusion Outcome: Progressing Goal: Absence of Infection Signs and Symptoms Outcome: Progressing [facility]01-31-2025 Nurse Note* Nursing Notes - Rosangela Yousif RN - 12/19/2024 1:39 PM EST Final Discharge Planning and Transportation Final Discharge Planning Discharge Disposition: Home Services at Discharge: Outpatient dialysis/Peritoneal dialysis Selected Continued Care - Admitted Since 12/18/2024 Dialysis/Infusion Service Provider Selected Services Address Phone Fax Patient Preferred [facility] [place] [address], [facility] [address] [phone] -- Internal Comment last updated by ELAYNE [...] identified: None Signed, Rosangela MARIE, RN Clinical Pbx Mechanic/ Float [facility]01-31-2025 Hospital course Narrative* Rika Castro MD - [...] Amador during his recent hospital stay at [facility]. Christian Amador is a 74 [...] dialyzed for 1 hour, he contacted his Technical Buyer and they recommended him to go to the ED, after adm, nephrology consulted, exchanged the port at bedside. He tolerated well. Go for HD today.tolerate well, port works well. His INR at 2.0. called to Dr. Flores's DOG CONTROL OFFICER Donnell, was instructed to just taking his warfarin 2mg and follow up with him. Ok to dc today. BMI: 27.4 Upon discharge the patient's code was Full Code Please see the remainder of this document for relevant data from this admission as well as the patient's discharge instructions and follow-up appointments. An electronic copy of the patient's recordscan be obtained via [facility] [employer] at [email or web address] It has been my pleasure participating in [...] Department Center 12/19/2024 12:30 PM DIALYSIS E [address] [place] [address] 06/24/2025 1:30 PM Vaishnavi Fry DO CPNGAS CPEAST Castro Ferrara DO [address] [facility] [phone] Schedule an appointment as soon as possible [...] Commonly known as: COUMADIN [facility] Nurse Note* Nursing Notes - Ayana Crouch RN - 12/19/2024 11:47 AM EST Hep B Surface Ag (HBsAg) Negative No Reference Range Provided - November 25, 2024 [facility]01-31-2025 History of Present illness Narrative* ELAYNE Guzman - 12/19/2024 10:50 AM EST Care Management Discharge Note Selected Continued Care - Admitted Since 12/18/2024 Dialysis/Infusion Service Provider Selected Services Address Phone Fax Patient Preferred [facility] Dialysis [address], [facility] [address] [phone] -- Internal Comment last updated by ELAYNE Guzman 12/19/2024 1050 Patient does PD at home Patient to resume dialysis at discharge. Please let Paint Spray Inspector know if patient will need iv antibiotics with dialysis at dc. RN to fax discharge information to dialysis day of discharge : john/avs/dc summary/last dialysis order or flowsheet information. KEV Sanz Cheesemaker * PATRICIA Nina - 12/19/2024 10:16 AM [...] Component Value Date PTH 283.6 (H) 02/04/2023 EEYS95FBC 40.3 09/03/2021 [id number] 10.3 (L) 05/15/2016 CALCIUM 9.4 02/21/2023 PHOSPHORUS [...] this patient! PATRICIA Nina Nephrology Pager # [phone] documented in this encounter[facility] Procedure note* ROSE Liriano - 12/19/2024 10:48 [...] stage renal disease Indications Indications: broken port Pearce Protocol Verbal consent obtained Risks and benefits [...] capped. There were no complications. ROSE Liriano [facility]01-31-2025 Procedure note* ROSE Liriano - 12/19/2024 10:48 [...] stage renal disease Indications Indications: broken port Pearce Protocol Verbal consent obtained Risks and benefits [...] complications. ROSE Liriano documented in this encounterOS[facility]25 Hospital Discharge instructions* Discharge Instructions* Kayleigh Izquierdo RN - 12/19/2024 9:44 AM EST Patient Experience Survey Reminder You may receive a survey in the mail within a few weeks regarding your hospitalization. This helps us to improve the care and services we provide at [facility]. We truly appreciate you taking the time to fill this out. We particularly welcome any specific comments you may have (good or bad!) [facility] so that we may use them to continue to strive towards excellence for our patients. documented in this encounterOS[facility]01-[facility]-20[facility] Plan of care note* Plan of Care - Rachael Platt RN - 12/19/2024 12:58 AM EST Problem: Adult Inpatient Plan of Care Goal: Plan of Care Review Outcome: Progressing Goal: Patient-Specific Goal (Individualized) Outcome: Progressing Problem: Pain Acute Goal: Optimal Pain Control and Function Outcome: Progressing [facility]01-30-2025 Plan of care note* Plan of [...] Goal: Optimal Eating/Swallowing without Aspiration Outcome: Progressing [facility]01-30-2025 Nurse Note* Nursing Notes - Rosangela Yousif [...] Spouse: Yes Name and Contact information: Anna Maynor [phone] Adult Child(jane), List All Adult Children: Yes Name and Contact information: Alina Mindy [phone] Would you like to add additional adult children?: Yes Name and Contact information: Sean Amador [phone] Parent(s) - List All Living Parents: No [...] Is the patient on Anticoagulation? : No [facility] [address], [address] [place] [address] Living Environment and Support System Is the patient from a facility or fdc?: No Living Environment: House Patient Caregiving Responsibilities: [...] care for themselves at home? : No Health Actuary Does the patient or new accounts representative express financial concerns? : No Signed, Rosangela MARIE, RN Clinical Pbx Mechanic/ Float [facility]01-30-[facility] Consult note* Trina Graham APRN-DEBURRER MACHINE - 12/18/2024 2:33 PM ESTAssociated Order(s): IP CONSULT TO NEPHROLOGY [facility] NEPHROLOGY INPATIENT CONSULTATION NOTE I saw Christian Amador at the [facility] on 12/18/2024. Reason for Consultation: ESRD [...] his TDC during dialysis on Sunday. His edge baster encouraged him to be evaluated in the ED, where it was recommended he apply tape to the crack as they were unable to repair/replace the catheter. This did not resolve the issue. He was transferred to [facility] for further intervention. His last dialysis session [...] The patient dialyzes at home (HHD) on / under the care of Dr. Bruce Calderon Dialysis Vintage: 2020 Access History: RI TDC Residual Kidney Function: Anuric Past Medical [...] Laterality: N/A; Surgeon: Ronnie Ferrari MD; Location: [facility] RICK EGD DIAGNOSTIC 06/2022 INSERTION CVC TUNNELED [...] Laterality: Right; Surgeon: Kaylin Grider MD; [facility] (VIR) CARDIAC VEIN ELECTRODE [...] Laterality: Left; Surgeon: Kaylin Grider MD; [facility] INTER[facility] (VIR) PACEMAKER ELECTRODE REMOVAL N/A 05/08/2016 Laterality: N/A; Surgeon: Luigi Mart MD; [facility] EP COLONOSCOPY DIAGNOSTIC N/A 03/20/2016 Laterality: N/A; Surgeon: Jeremiah García MD; [facility] ENDOSCOPY EP IMPLANT BIVENTRICULAR PACEMAKER TOTAL 08/07/2013 3 leads CARDIAC VEIN ELECTRODE PLACEMENT FOR LV PACING N/A 08/07/2013 Laterality: N/A; Surgeon: Favio Kline MD; Location[facility] EP PACEMAKER ELECTRODE REMOVAL 08/07/2013 Surgeon: Favio Kline MD; Location: [facility] EP AV NODE ABLATION N/A 02/26/2013 Laterality: N/A; Surgeon: Favio Kline MD; Location: [facility] EP CARDIAC PACEMAKER PLACEMENT 10/20/2010 Implant: Medtronic [id number] Versa CARDIAC PACEMAKER PLACEMENT 08/31/2003 Implant: Medtronic [id number] [place] [address] APPENDECTOMY [place] ANES HRT PERICRD SAC&GRT VSLS W/HOUSEKEEPER CLEANING COOKING OXTJ >1MO PO Scheduled Meds: ALPRAZolam 1 [...] Skin: No obvious rash Dialysis Access: [facility] Relevant Data: Lab Results Component Value [...] this patient! PATRICIA Nina Nephrology Pager # [phone] [facility] Consult note* PATRICIA Nina - 12/18/2024 2:33 PM ESTAssociated Order(s): IP CONSULT TO NEPHROLOGY [facility] NEPHROLOGY INPATIENT CONSULTATION NOTE I saw Christian Amador at the [facility] on 12/18/2024. Reason for Consultation: ESRD [...] his TDC during dialysis on Sunday. His edge baster encouraged him to be evaluated in the ED, where it was recommended he apply tape to the crack as they were unable to repair/replace the catheter. This did not resolve the issue. He was transferred to [facility] for further intervention. His last dialysis [...] [facility] Vintage: 2020 Access History: RIJ TD Residual Kidney Function: Anuric Past Medical History: [...] Laterality: N/A; Surgeon: Ronnie Ferrari MD; Location: [facility] EP EGD DIAGNOSTIC 06/2022 INSERTION CVC TUNNELED N/A 10/10/2021 Laterality: N/A; Surgeon: Remy Ferrer MD; Location: [facility] INTERVENTIONAL RADIOLOGY (VIR) INSERTION CVC TUNNELED N/A 10/03/2021 Laterality: N/A; Surgeon: Kaylin Duran II, MD; Location: [facility] INTERVENTIONAL RADIOLOGY (VIR) PLACEMENT PROBE FOR TRANSESOPHAGEAL ECHOCARDIOGRAPHY N/A 09/23/2021 Laterality: N/A; Surgeon: Sadia Nieto MD; Location: [facility] MAIN OR ESS NASAL DIAGNOSTIC Bilateral 09/20/2021 Laterality: Bilateral; Surgeon: You Wise MD; Location: [facility] MAIN OR ESS SPHENOID SINUSOTOMY WITH REMOVAL TISSUE Right 09/20/2021 Laterality: Right; Surgeon: You Wise MD; [facility] MAIN OR ESS TOTAL ETHMOIDECTOMY Right 09/20/2021 Laterality: Right; Surgeon: You Wsie MD; Location: [facility] MAIN OR REMOVAL CVC TUNNELED Right 07/07/2016 Laterality: Right; Surgeon: Kaylin Grider MD; Location: [facility] INTERVENTIONAL RADIOLOGY (VIR) CARDIAC VEIN ELECTRODE PLACEMENT FOR LV PACING N/A 05/26/2016 Laterality: N/A; Surgeon: Yi Cody MD; Location: [facility] EP PACEMAKER PLACEMENT N/A 05/26/2016 Laterality: N/A; [...] Versa CARDIAC PACEMAKER PLACEMENT 08/31/2003 Implant: Medtronic [id number] [place] [address] APPENDECTOMY [place] ANES HRT PERICRD SAC&GRT VSLS W/HOUSEKEEPER CLEANING COOKING OXTJ >1MO PO Scheduled Meds: ALPRAZolam 1 [...] intact Skin: No obvious rash Dialysis Access: [facility] Relevant Data: Lab Results Component Value [...] the care of this patient! Trina Graham APRN-[facility] Nephrology Pager # [phone] documented in this [facility] History and physical note* Malcom Araiza MD - 12/18/2024 2:03 PM EST Images from the original note were not included. Hospital Medicine Admission History & Physical Patient: Christian Amador, 1950, [id number] Physician: Malcom Fuller MD, Attending Physician, Pager #[phone], [facility] service Date of face to face [...] the ED, [facility] Consult Nephrology. Check labs. - Renal [...] male that has been admitted to [facility]. Christian Amador is a 74 y.o. [...] [facility] He denied [...] Laterality: N/A; Surgeon: Remy Ferrer MD; Location: [facility] INTERVENTIONAL RADIOLOGY (VIR) INSERTION CVC TUNNELED N/A 10/03/2021 Laterality: N/A; Surgeon: Kaylin Duran II, MD; Location: [facility] INTERVENTIONAL RADIOLOGY (VIR) PLACEMENT PROBE FOR TRANSESOPHAGEAL ECHOCARDIOGRAPHY N/A 09/23/2021 Laterality: N/A; Surgeon: Sadia Nieto MD; [facility] MAIN OR ESS NASAL DIAGNOSTIC Bilateral 09/20/2021 Laterality: Bilateral; Surgeon: You Wise MD; Location: [facility] MAIN OR ESS SPHENOID SINUSOTOMY WITH REMOVAL TISSUE Right 09/20/2021 Laterality: Right; Surgeon: You Wise MD; [facility] TOTAL ETHMOIDECTOMY Right 09/20/2021 Laterality: Right; Surgeon: You Wise MD; [facility] MAIN OR REMOVAL CVC TUNNELED Right 07/07/2016 Laterality: Right; Surgeon: Kaylin Grider MD; Location: [facility] INTERVENTIONAL RADIOLOGY (VIR) CARDIAC VEIN ELECTRODE PLACEMENT FOR LV PACING N/A 05/26/2016 Laterality: N/A; Surgeon: Yi Cody MD; Location: [facility] EP PACEMAKER PLACEMENT N/A 05/26/2016 Laterality: N/A; Surgeon: Yi Cody MD; Location: [facility] EP INSERTION CVC TUNNELED Right 05/19/2016 Laterality: Right; Surgeon: Kaylin Grider MD; Location: [facility] INTERVENTIONAL RADIOLOGY (VIR) INSERTION CVC TUNNELED Left 05/18/2016 Laterality: Left; Surgeon: Kaylin Grider MD; Location: [facility] INTERVENTIONAL RADIOLOGY (VIR) PACEMAKER ELECTRODE REMOVAL N/A 05/08/2016 Laterality: N/A; Surgeon: Luigi Mart MD; Location: [facility] EP COLONOSCOPY DIAGNOSTIC N/A 03/20/2016 Laterality: N/A; Surgeon: Jeremiah García MD; Location: [facility] ENDOSCOPY EP IMPLANT BIVENTRICULAR PACEMAKER TOTAL 08/07/2013 3 leads CARDIAC VEIN ELECTRODE PLACEMENT FOR LV PACING N/A 08/07/2013 Laterality: N/A; Surgeon: Favio Kline MD; Location[facility] EP PACEMAKER ELECTRODE REMOVAL 08/07/2013 Surgeon: F[facility]io Kline MD; [facility] N/A 02/26/2013 Laterality: N/A; Surgeon: Favio Kline MD; Location: [facility] EP CARDIAC PACEMAKER PLACEMENT 10/20/2010 Implant: Medtronic [id number] Versa CARDIAC PACEMAKER PLACEMENT 08/31/2003 Implant: Medtronic [id number] [place] [address] APPENDECTOMY [place] ANES HRT PERICRD SAC&GRT VSLS W/HOUSEKEEPER CLEANING COOKING OXTJ >1MO PO Social History Social History [...] Yes No Sig: Take by mouth. B Ragenho-L-Gathj Acid (NEPHRO-BALTAZAR PO) Yes No Sig: Take [...] laboratory and imaging studies. Malcom Fuller MD Financial Operations Analyst-Clinical, Division of Hospital Medicine [facility] 12/18/2024 2:03 PM [facility]01[facility] History and physical note* Malcom Araiza MD - 12/18/2024 2:03 PM EST Images from the original note were not included. Hospital Medicine Admission History & Physical Patient: Christian Amador, 1950, [id number] Physician: Malcom Fuller MD, Attending Physician, Pager #[phone], [facility] service Date of face to face [...] the ED, [facility] Consult Nephrology. Check labs. - Renal [...] male that has been admitted to [facility]. Christian Amador is a 74 y.o. [...] [facility] He denied [...] Laterality: N/A; Surgeon: Ronnie Ferrari MD; [facility]22 INSERTION CVC TUNNELED N/A 10/10/2021 Laterality: N/A; Surgeon: Remy Ferrer MD; [facility] (VIR) INSERTION CVC TUNNELED N/A 10/03/2021 Laterality: N/A; Surgeon: Kaylin Duran II, MD; Location: [facility] INTERVENTIONAL RAD[facility]OLOGY [facility]) PLACEMENT PROBE FOR TRANSESOPHAGEAL ECHOCARDIOGRAPHY N/A 09/23/2021 [...] Laterality: Right; Surgeon: Kaylin Grider MD; Location: [facility] INTERVENTIONAL RADIOLOGY (VIR) CARDIAC VEIN ELECTRODE PLACEMENT FOR LV PACING N/A 05/26/2016 Laterality: N/A; Surgeon: Yi Cody MD; Location: [facility] EP PACEMAKER PLACEMENT N/A 05/26/2016 Laterality: N/A; Surgeon: Yi Cody MD; Location: [facility] EP INSERTION CVC TUNNELED Right 05/19/2016 Laterality: Right; Surgeon: Kaylin Grider MD; Location: [facility] INTERVENTIONAL RADIOLOGY (VIR) INSERTION CVC TUNNELED Left 05/18/2016 Laterality: Left; Surgeon: Kaylin Grider MD; Location: [facility] INTERVENTIONAL RADIOLOGY (VIR) PACEMAKER ELECTRODE REMOVAL N/A 05/08/2016 Laterality: N/A; Surgeon: Luigi Mart MD; Location: [facility] EP COLONOSCOPY DIAGNOSTIC N/A 03/20/2016 Laterality: N/A; Surgeon: Jeremiah García MD; Location: [facility] ENDOSCOPY EP IMPLANT BIVENTRICULAR PACEMAKER TOTAL [...] Versa CARDIAC PACEMAKER PLACEMENT 08/31/2003 Implant: Medtronic [id number] [place] [address] APPENDECTOMY [place] ANES HRT PERICRD SAC&GRT VSLS W/HOUSEKEEPER CLEANING COOKING OXTJ >1MO PO Social History Social History [...] Yes No Sig: Take by mouth. B Pqgyexm-X-Kwkby Acid (NEPHRO-BALTAZAR PO) Yes No Sig: Take [...] breakfast. pantoprazole [address] tablet No No Sig: Take 1 tablet [...] laboratory and imaging studies. Malcom Fuller MD Financial Operations Analyst-Clinical, Division of Hospital Medicine [facility] 12/18/2024 2:03 PM documented in this [facility] Nurse Note* Nursing Notes - Farrah Schafer RN - 12/18/2024 1:32 PM EST Received Christian Amador to [place] 10 from outside ED Transferred to bed without incident. Vital signs stable. Pain level is good. Pt oriented to room, call light, and bed alarms. Bed in low position, siderails elevated x2 to allow for pt mobility and bed alarm set. MCB tablet offered, pt acceptedAssessment complete. [facility]01-07-2025 Evaluation note* Diagnosis Onset Date Resolution Status Admit Date Essential tremor chronic November 25, 2024 1:45pm Hyperammonemia chronic November 1:45pm Mild cognitive impairment chronic November 25, 2024 1:45pm Polyneuropathy chronic November 1:45pm Syncope resolved November 25 1:45pm Biventricular cardiac pacemaker in situ May, acute January 28 10:02am Cardiomyopathy chronic January 10:02am History of cardiac radiofrequency ablation (RFA) [facility] 2024 10:02am Biventricular cardiac pacemaker in situ May, acute January 28 10:03am History of mitral valve repair August, acute January 28, 2025 10:03am Benign essential hypertension chroni c January 28, 2025 10:03am CAD [facility]coronary artery disease[facility] January 28, 2025 10:03am Cardiomyopathy chronic January 10:03am History of aortic valve replacement 2002January 28, 2025 10:03am History of cardiac radiofrequency ablation (RFA) chronic [facility] 2024 10:03am HLD (hyperlipidemia) [facility] 2024 10:03am Other specified cardiac dysrhythmias [facility] January 28, 2025 10:03am [facility] Work Phone: 1(339) 504-644212-04-2024 History of Present illness Narrative* Kelby Chance, MACHINE ADJUSTER LEADER CASE TRIM-DEBURRER MACHINE - 10/22/2024 11:00 AM EST Images from the original note were not included. CLINICAL CARE TEAM: -Referring Provider for today's consult: Self, Self -Primary Care Provider: Castro Ferrara HISTORY OF PRESENT ILLNESS: Christian Amador is a 74 y.o. male who presents to the [facility] Hep[facility] today for follow-up. I have [...] N/A; Surgeon: Kaylin Duran II, MD; Location: [facility] INTERVENTIONAL RADIOLOGY (VIR) PLACEMENT PROBE FOR [...] Laterality: Right; Surgeon: Kaylin Grider MD; Location: [facility] INTERVENTIONAL RADIOLOGY ([facility]) CARDIAC VEIN ELECTRODE PLACEMENT FOR LV PACING N/A 05/26/2016 Laterality: N/A; Surgeon: Yi Cody MD; Location[facility] EP PACEMAKER PLACEMENT N/A 05/26/2016 Laterality: N/A; Surgeon: Yi Cody MD; Location: [facility] EP INSERTION CVC TUNNELED Right 05/19/2016 Laterality: Right; Surgeon: Kaylin Grider MD; Location: [facility] INTERVENTIONAL RADIOLOGY (VIR) INSERTION CVC TUNNELED Left 05/18/2016 Laterality: Left; Surgeon: Kaylin Grider MD; [facility] (VIR) PACEMAKER ELECTRODE REMOVAL [...] Versa CARDIAC PACEMAKER PLACEMENT 08/31/2003 Implant: Medtronic [id number] [place] [address] APPENDECTOMY [place] ANES HRT PERICRD SAC&GRT VSLS W/HOUSEKEEPER CLEANING COOKING OXTJ >1MO PO Family History Problem Relation [...] 1 tablet by mouth at bedtime. B Gikxzdr-T-Lpndn Acid (NEPHRO-BALTAZAR PO) Take 1 tablet by [...] Gastroenterology, Hepatology, and Nutrition documented in this [facility]12-04-2024 Instructions* Patient Instructions* PATRICIA Flowre - 10/22/2024 11:00 AM EST Labs today Schedule your ultrasound for 12/2024 locally documented in this [facility]05-29-2024 History of Present illness Narrative* Vaishnavi [...] Laterality: N/A; Surgeon: Ronnie Ferrari MD; [facility]/2022 INSERTION CVC TUNNELED N/A 10/10/2021 Laterality: N/A; Surgeon: Remy Ferrer MD; Location: [facility] INTERVENTIONAL RADIOLOGY (VIR) INSERTION CVC TUNNELED N/A 10/03/2021 Laterality: N/A; Surgeon: Kaylin Duran II, MD; Location: [facility] INTERVENTIONAL RADIOLOGY (VIR) PLACEMENT PROBE FOR TRANSESOPHAGEAL ECHOCARDIOGRAPHY N/A 09/23/2021 Laterality: N/A; Surgeon: Sadia Nieto MD; Location[facility] MA[facility] OR ESS NASAL DIAGNOSTIC Bilateral 09/20/2021 Laterality: Bilateral; Surgeon: You Wise MD; [facility] SPHENOID SINUSOT[facility] WITH REMOVAL TISSUE Right 09/20/2021 Laterality: Right; Surgeon: You Wise MD; Location[facility] MAIN OR ESS TOTAL ETHMOIDECTOMY Right 09/20/2021 Laterality: Right; Surgeon: You Wise MD; Location: [facility] MAIN OR REMOVAL CVC TUNNELED Right 07/07/2016 Laterality: Right; Surgeon: Kaylin Grider MD; Location: [facility] INTERVENTIONAL RADIOLOGY (VIR) CARDIAC VEIN ELECTRODE PLACEMENT FOR LV PACING N/A 05/26/2016 Laterality: N/A; Surgeon: Yi Cody MD; Location: [facility] EP PACEMAKER PLACEMENT N/A 05/26/2016 Laterality: N/A; Surgeon: Yi Cody MD; Location: [facility] EP INSERTION CVC TUNNELED Right 05/19/2016 Laterality: Right; Surgeon: Kaylin Grider MD; Location: [facility] INTERVENTIONAL RADIOLOGY (VIR) INSERTION CVC TUNNELED Left 05/18/2016 Laterality: Left; Surgeon: Kaylin Grider MD; Location: [facility] INTERVENTIONAL RADIOLOGY (VIR) PACEMAKER ELECTRODE REMOVAL N/A 05/08/2016 Laterality: N/A; Surgeon: Luigi Mart MD; Location: [facility] EP COLONOSCOPY DIAGNOSTIC N/A 03/20/2016 Laterality: N/A; Surgeon: Jeremiah García MD; [facility] ENDOS[facility] EP IMPLANT BIVENTRICULAR PACEMAKER TOTAL 08/07/2013 3 leads CARDIAC VEIN ELECTRODE PLACEMENT FOR LV PACING N/A 08/07/2013 Laterality: N/A; Surgeon: Favio Kline MD; Location: [facility] EP PACEMAKER ELECTRODE REMOVAL 08/07/2013 Surgeon: Favio Kline MD; Location: [facility] EP AV NODE ABLATION N/A 02/26/2013 Laterality: N/A; Surgeon: Favio Kline MD; Location: [facility] ROSS EP CARDIAC PACEMAKER PLACEMENT 10/20/2010 Implant: Medtronic [id number] Versa CARDIAC PACEMAKER PLACEMENT 08/31/2003 Implant: Medtronic [id number] [place] [address] APPENDECTOMY [place] ANES HRT PERICRD SAC&GRT VSLS W/HOUSEKEEPER CLEANING COOKING 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 ALPRAZolam 1 MG tablet Take 1 tablet by mouth at bedtime. B Kemyjxx-E-Vqopf Acid (NEPHRO-BALTAZAR PO) Take 1 tablet by [...] at 71 bpm. - Mild TR, mild VT. - RVSP estimated 42 mmHg. - Compared [...] encouraged him to review this with his Technical Buyer to see if dose needs adjustment. - For follow up, he will return to clinic in 6months with Kelby Chance and with me in 1 year. Thank you for allowing us to participate in the care of Christian Amador. Vaishnavi Fry DO Financial Operations Analyst of Clinical Medicine Division of Gastroenterology, Hepatology and Nutrition [facility] Pager: [phone] * Brenda Arana LPN - 04/16/2024 10:30 AM EDT Patient verified name and date of with this MINE INSPECTOR FEDERAL. Patient is accompanied by his today. documented [facility] Instructions* Patient Instructions* Vaishnavi Fry DO - 04/16/2024 10:30 AM EDT Follow up in 6months with Kelby Chance Print liver ultrasound to complete around 06/2024 Print labs to complete with next blood draw documented in this [facility]-2024 Nurse Note* Nursing Notes - Enrico Bateman [...] pulses. Ice pack applied to site. [facility] Miscellaneous Notes* Nursing Notes - Enrico Bateman [...] shows Vpaced . documented in this [facility]24 Hospital Discharge instructions* Discharge Instr - Activity* [...] Where can you learn more? Go to https://www.healthwise.net/osumychart. * Discharge Instr - Wound Care* PATRICIA [...] Everywhere. * [facility] Control ([facility]) ([place] Island[place]) documented in this [facility]-15-[facility]24 History and physical note* PATRICIA Bunch - 04/02/2024 8:15 AM EDT Chief Complaint Device Change Out HPI Christian Amador is a 74 y.o. 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 He has undergone SALES INTERN-P implant in the past, reportedly by after [...] Laterality: N/A; Surgeon: Remy Ferrer MD; Location: [facility] INTERVENTIONAL RADIOLOGY (VIR) INSERTION CVC TUNNELED N/A 10/03/2021 Laterality: N/A; Surgeon: Kaylin Duran II, MD; Location: [facility] INTERVENTIONAL RADIOLOGY (VIR) PLACEMENT PROBE FOR TRANSESOPHAGEAL ECHOCARDIOGRAPHY N/A 09/23/2021 Laterality: N/A; Surgeon: Sadia Nieto MD; Location: [facility] ROSS MAIN OR ESS NASAL DIAGNOSTIC Bilateral 09/20/2021 Laterality: Bilateral; Surgeon: You Wise MD; [facility]SS SPHENOID SINUSOTOMY WITH REMOVAL TISSUE Right 09/20/2021 Laterality: Right; Surgeon: You Wise MD; Location[facility] MAIN OR ESS TOTAL ETHMOIDECTOMY Right 09/20/2021 Laterality: Right; Surgeon: You Wise MD; Location: [facility] MAIN OR REMOVAL CVC TUNNELED Right 07/07/2016 Laterality: Right; Surgeon: Kaylin Grider MD; Location: [facility] INTERVENTIONAL RADIOLOGY (VIR) CARDIAC VEIN ELECTRODE PLACEMENT FOR LV PACING N/A 05/26/2016 Laterality: N/A; Surgeon: Yi Cody MD; Location: [facility] EP PACEMAKER PLACEMENT N/A 05/26/2016 Laterality: N/A; Surgeon: Yi Cody MD; Location: [facility] INSERTION CVC TUNNELED Right 05/19/2016 Laterality: Right; Surgeon: Kaylin Grider MD; Location: [facility] INTERVENTIONAL RADIOLOGY (VIR) INSERTION CVC TUNNELED Left 05/18/2016 Laterality: Left; Surgeon: Kaylin Grider MD; [facility] INTER[facility]AL [facility]OLOGY (VIR) PACEMAKER ELECTRODE REMOVAL N/A 05/08/2016 Laterality: N/A; Surgeon: Luigi Mart MD; Location: [facility] EP COLONOSCOPY DIAGNOSTIC N/A 03/20/2016 Laterality: N/A; [...] Versa CARDIAC PACEMAKER PLACEMENT 08/31/2003 Implant: Medtronic [id number] [place] [address] APPENDECTOMY [place] ANESTH,OPEN HEART SURGERY+PUMP Medications Prior to Admission Medication Sig Dispense Refill Last Dose ALPRAZolam 1 MG tablet Take 1 tablet by mouth at bedtime. 04/01/2024 B Rcdpocs-U-Blhof Acid (NEPHRO-BALTAZAR PO) Take 1 tablet by [...] When was the last dose taken. 04/01/2024 [id number]- Vasc score: 9 (Xqg-HZM-CPQ-CHF-HTN-DVT) Prior Cardiac testing: Results for orders placed [...] change out with routine post procedure orders. [facility] Work Phone: 1(196) 439-489905-15-2024 History and physical note* Miracle Parks, MACHINE ADJUSTER LEADER CASE TRIM-DEBURRER MACHINE - 04/02/2024 8:15 AM EDT Chief Complaint Device Change Out HPI Christian Amador is a 74 y.o. 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 He has undergone SALES INTERN-P implant in the past, reportedly by after [...] Laterality: N/A; Surgeon: Remy Ferrer MD; Location: [facility] INTERVENTIONAL RADIOLOGY (VIR) INSERTION CVC TUNNELED N/A 10/03/2021 Laterality: N/A; Surgeon: Kaylin Duran II, MD; Location: [facility] INTERVENTIONAL RADIOLOGY (VIR) PLACEMENT PROBE FOR TRANSESOPHAGEAL ECHOCARDIOGRAPHY N/A 09/23/2021 Laterality: N/A; Surgeon: Sadia Nieto MD; Location: [facility] ROSS MAIN OR ESS NASAL DIAGNOSTIC Bilateral 09/20/2021 Laterality: Bilateral; Surgeon: You Wise MD; [facility]SS SPHENOID SINUSOTOMY WITH REMOVAL TISSUE Right 09/20/2021 Laterality: Right; Surgeon: You Wise MD; [facility] ESS TOTAL ETHMOIDECTOMY Right 09/20/2021 Laterality: Right; Surgeon: You Wise MD; Location: [facility] MAIN OR REMOVAL CVC TUNNELED Right 07/07/2016 Laterality: Right; Surgeon: Kaylin Grider MD; Location: [facility] INTERVENTIONAL RADIOLOGY (VIR) CARDIAC VEIN ELECTRODE PLACEMENT FOR LV PACING N/A 05/26/2016 Laterality: N/A; Surgeon: Yi Cody MD; Location: [facility] EP PACEMAKER PLACEMENT N/A 05/26/2016 Laterality: N/A; Surgeon: Yi Cody MD; Location: [facility] INSERTION CVC TUNNELED Right 05/19/2016 Laterality: Right; Surgeon: Kaylin Grider MD; Location: [facility] INTERVENTIONAL RADIOLOGY (VIR) INSERTION CVC TUNNELED Left 05/18/2016 Laterality: Left; Surgeon: Kaylin Grider MD; [facility] INTER[facility]IONAL RADIOLOGY (VIR) PACEMAKER ELECTRODE REMOVAL N/A 05/08/2016 Laterality: N/A; Surgeon: Luigi Mart MD; Location: [facility] EP COLONOSCOPY DIAGNOSTIC N/A 03/20/2016 Laterality: N/A; Surgeon: Jeremiah García MD; Location[facility]OS[facility] EP IMPLANT BIVENTRICULAR PACEMAKER TOTAL 08/07/2013 3 leads CARDIAC VEIN ELECTRODE PLACEMENT FOR LV PACING N/A 08/07/2013 Laterality: N/A; Surgeon: Favio Kline MD; Location: [facility] EP PACEMAKER ELECTRODE REMOVAL 08/07/2013 Surgeon: Favio Kline MD; Location: [facility] AV NODE ABLATION N/A 02/26/2013 Laterality: N/A; Surgeon: Favio Kline MD; Location: [facility] EP CARDIAC PACEMAKER PLACEMENT 10/20/2010 Implant: Medtronic [id number] Versa CARDIAC PACEMAKER PLACEMENT 08/31/2003 Implant: Medtronic [id number] [place] [address] APPENDECTOMY [place] ANESTH,OPEN HEART SURGERY+PUMP Medications Prior to Admission Medication Sig Dispense Refill Last Dose ALPRAZolam 1 MG tablet Take 1 tablet by mouth at bedtime. 04/01/2024 B Nudejri-Y-Whiak Acid (NEPHRO-BALTAZAR PO) Take 1 tablet by [...] When was the last dose taken. 04/01/2024 [id number]- Vasc score: 9 (Msr-BLB-QTJ-CHF-HTN-DVT) Prior Cardiac testing: Results for orders placed [...] post procedure orders. documented in this [facility] Nurse Note* Nursing Notes - Enrico Bateman RN - 04/02/2024 8:06 AM EDT Pt arrives to room 2446 in [facility] for ICD c/o. ECG completed. IV started in R arm. Labs drawn and sent. 0.9 NS IVF initiated @ 10mL/ hr per pump. Pt prep completed. Valuables given to spouse. Clothes secured in room. Questions about procedure answered. Family brought to bedside. Bed in low position, side rail up x2 and call light given to pt. Tele monitor shows Vpaced . [facility]05-06-2024 History of Present illness Narrative* Alina [...] intact. Adequate hemostasis achieved. documented in this [facility]01[facility] History of Present illness Narrative* Kelby Chance, MACHINE ADJUSTER LEADER CASE TRIM-DEBURRER MACHINE - 12/05/2023 10:00 AM EST CLINICAL CARE TEAM: -Referring Provider for today's consult: Castro Ferrara DO -Primary Care Provider: Castro Ferrara HISTORY OF PRESENT ILLNESS: Christian Amador is a 73 y.o. male who [facility] [...] Laterality: N/A; Surgeon: Remy Ferrer MD; Location: [facility] INTERVENTIONAL RADIOLOGY (VIR) INSERTION CVC TUNNELED N/A 10/03/2021 Laterality: N/A; Surgeon: Kaylin Duran II, MD; Location: [facility] INTERVENTIONAL RADIOLOGY (VIR) PLACEMENT PROBE FOR TRANSESOPHAGEAL ECHOCARDIOGRAPHY N/A 09/23/2021 Laterality: N/A; Surgeon: Sadia Nieto MD; Location: [facility] MAIN OR ESS NASAL DIAGNOSTIC Bilateral 09/20/2021 Laterality: Bilateral; Surgeon: You Wise MD; Location: [facility] MAIN OR ESS SPHENOID SINUSOTOMY WITH REMOVAL TISSUE Right 09/20/2021 Laterality: Right; Surgeon: You Wise MD; [facility] TOTAL ETHMOIDECTOMY Right [...] Versa CARDIAC PACEMAKER PLACEMENT 08/31/2003 Implant: Medtronic [id number] [place] [address] APPENDECTOMY [place] ANESTH,OPEN HEART SURGERY+PUMP Family History Problem Relation [...] At bedtime as needed for Anxiety. B Oookhai-K-Qthxf Acid (NEPHRO-BALTAZAR PO) Take by mouth. Cyclobenzaprine [...] participate in the care of Christian Alejandra Amador. Kelby Chance APRN-DEBURRER MACHINE Hepatology Nurse Practitioner Division of Gastroenterology, Hepatology, and Nutrition documented in this [facility]01[facility]17-[facility]24 Instructions* Patient Instructions* PATRICIA Flower - 12/05/2023 10:00 AM EST Labs today Schedule your ultrasound locally for 01/2024 Return to clinic in 4 months documented in this [facility]OS[facility]11[facility]23 Telephone encounter Note* Telephone Encounter - [...] imaging so if again stable, can resume RU US for screening. Update AFP. - Variceal [...] clinic in 4 months with Kelby Chance. [facility]11-15-2023 Miscellaneous Notes* Telephone Encounter - Tayler [...] Leia Chatman - 10/03/2023 10:40 AM EST GHN REFILL REQUEST Provider: Dr Fry Name [...] supply PREFERRED PH[facility]AC[facility] [address] [facility] Telephone encounter Note* Telephone Encounter - Leia Chatman - 10/03/2023 10:40 AM EST MEKAN REFILL REQUEST Provider: Dr Fry Name of [...] supply PREFERRED PHARMACY IS ATTACHED TO ENCOUNTER [facility] [phone] [facility]08-25-2023 History of Present illness Narrative* Vaishnavi Fry DO - 07/13/2023 9:00 AM EDT -Referring Provider for today's consult: Vaishnavi Fry DO -Primary Care Provider: Castro Ferrara History of Present Illness Christian Amador is a 73 y.o. male who presents to the [facility] Hep[facility]ology [facility] today for consultation regarding [...] Laterality: N/A; Surgeon: Remy Ferrer MD; [facility] INTER[facility]AL RADIOLOGY (VIR) INSERTION CVC TUNNELED N/A 10/03/2021 Laterality: N/A; Surgeon: Kaylin Duran II, MD; [facility] INTER[facility]IONAL RADIOLOGY (VIR) PLACEMENT PROBE FOR TRANSESOPHAGEAL ECHOCARDIOGRAPHY N/A 09/23/2021 Laterality: N/A; Surgeon: Sadia Nieto MD; Location[facility] MAIN OR ESS NASAL DIAGNOSTIC Bilateral 09/20/2021 Laterality: Bilateral; Surgeon: You Wise MD; [facility] SPHENOID SINUSOTOMY WITH REMOVAL TISSUE Right 09/20/2021 Laterality: Right; Surgeon: You Wise MD; Location: [facility] MAIN OR ESS TOTAL ETHMOIDECTOMY Right 09/20/2021 Laterality: Right; Surgeon: You Wise MD; Location: [facility] MAIN OR REMOVAL CVC TUNNELED Right 07/07/2016 Laterality: Right; Surgeon: Kaylin Grider MD; Location: [facility] INTERVENTIONAL RADIOLOGY ([facility]) CARDIAC VEIN ELECTRODE PLACEMENT FOR LV PACING N/A 05/26/2016 Laterality: N/A; Surgeon: Yi Cody MD; Location: [facility] EP PACEMAKER PLACEMENT N/A 05/26/2016 Laterality: N/A; Surgeon: Yi Cody MD; Location: [facility] EP INSERTION CVC TUNNELED Right 05/19/2016 Laterality: Right; Surgeon: Kaylin Grider MD; Location: [facility] INTERVENTIONAL RADIOLOGY (VIR) INSERTION CVC TUNNELED Left 05/18/2016 Laterality: Left; Surgeon: Kaylin Grider MD; Location: [facility] INTERVENTIONAL RADIOLOGY (VIR) PACEMAKER ELECTRODE REMOVAL N/A 05/08/2016 Laterality: N/A; Surgeon: Luigi Mart MD; Location: [facility] EP COLONOSCOPY DIAGNOSTIC N/A 03/20/2016 Laterality: N/A; Surgeon: Jeremiah García MD; [facility] ENDOS[facility] EP IMPLANT BIVENTRICULAR PACEMAKER TOTAL [...] Versa CARDIAC PACEMAKER PLACEMENT 08/31/2003 Implant: Medtronic [id number] [place] [address] APPENDECTOMY [place] ANESTH,OPEN HEART SURGERY+PUMP Home Medications Current Outpatient Medications Medication Sig ALPRAZolam 0.5 MG tablet Take 1 tablet by mouth At bedtime as needed for Anxiety. B Ugbovff-R-Uzvjx Acid (NEPHRO-BALTAZAR PO) Take by mouth. Cyclobenzaprine [...] care of Christian Amador. Vaishnavi Fry DO Financial Operations Analyst of Clinical Medicine Division of Gastroenterology, Hepatology and Nutrition [facility] Pager: [phone] * Ismael Mora - 07/13/2023 9:00 AM EDT This Boiler Operators Supervisor verified the patients name and date of . documented in this encounterOS[facility]05-11-[address] Wen [facility] March 29, 2023 7:23pm Note Date/Time March 29, 2023 7:23p m [facility] Medical Records Department [address] [place] [address] Progress Note - Surgery 03/29/231919 MR#: [id number] Acct: [id number] Name: CHRISTIAN AMADOR Rep #:[id number] : 1950 73 From: Ford Wen MD PCP: Dr. Castro Ferrara, DO Status:REG ER Location: ED Subjective Subjective Patient [...] (Auto) 66.0, Lymph % (Auto) 16.2 L, [place] % (Auto) 11.1 H, Eos % (Auto) [...] Cosigner Signature (if applicable): CC: ~ Signed [facility] Work Phone: 1(410) 984-620205-11-[address] Palafox [facility] March 29, 2023 9:10pm Note Date/Time March 29, 2023 5:21p m [facility] Medical Records Department [address] [place] [address] Emergency Department Summary 03/29/23 MR#: [id number] Acct: [id number] Name: CHRISTIAN AMADOR Rep #:[id number] : 1950 73 From: Matt Drake PCP: Dr. Castro Ferrara, DO Status:REG ER Location: ED HPI History of Present Illness Chief Complaint: Wound PFSH [facility] Medical History ABLA (acute blood loss anemia) Abnormal results of thyroid function studies Airway intubation performed without difficulty Anemia in chronic kidney disease Anemia requiring transfusions Atherosclerotic heart disease of [place] coronary artery without angina pectoris Atrial flutter [...] Method Room Air Room Air Room Air [facility] Narrative Medical decision making narrative: HISTORY OF [...] there has been essentially no change. ? [facility] Narrative: Patient had oozing from a suture [...] (Auto) 66.0 Lymph % (Auto) 16.2 L [place] % (Auto) 11.1 H Eos % (Auto) [...] Primary Care Provider: Castro Ferrara Referrals: Castro Ferrara, [Primary Care Provider] - What to do if you have Problems For any increased pain, shortness of breath, bleeding, nausea or vomiting, chestpain, or any unexpected problems, contact your Primary Care Provider. Call [facility] ([phone]) or report to the closest Emergency Room. Call 911 if necessary. 03/29/232109 <Electronically signed by Matt Palafox DO> Cosigner Signature (if applicable): CC: Dr. Castro Ferrara, ~ Signed [facility] Work Phone: 1(889) 802-575605-11-[address] Wen [facility] March 29, 2023 11:15am Note Date/Time March 29, 2023 11:15 am [facility] Medical Records Department [address] [place] [address] Instructions for Home/Discharge Instructions 03/29/23 1112 MR#: [id number] Acct: [id number] Name: CHRISTIAN AMADOR Rep #:[id number] : 1950 73 From: Ford Wen MD [...] MD When: Approximately 2 to 3 months [phone] Test Results: Test results from this visit [...] Ford Wen MD>Ford Wen MD CC: Dr. Catsro Ferrara DO ~ Signed [facility] Work Phone: 1(677) 594-642505-11-2023 History and physical note Author Dr. Wen [facility] March 29, 2023 9:04am Note Date/Time March 29, 2023 8:51a m [facility] Medical Records Department [address] [place] [address] History & Physical Exam 03/29/23 0850 MR#: [id number] Acct: [id number] Name: CHRISTIAN AMADOR Rep #:[id number] : 1950 73 From: Ford Wen MD PCP: Dr. Castro Ferrara, DO Status:REG [facility] Location: [facility] History and Physical Date of Admission: 03/29/23 isit Reasons:?CVC EXCHANGE FOR DAMAGED ART LUMEN Chief Complaint: CVC exchange consult Record Changer Assembler Required: No Is patient in pain?: No [...] Anemia requiring transfusions Atherosclerotic heart disease of [place] coronary artery without angina pectoris Atrial flutter [...] option would be to go to the Floor Sweeper and to attempt an ufel-xjz-lcjw replacement of the current catheter.? 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 He has had an opportunity to ask and have questions answered.? He and his will try to decide how they would like to approach this.? Tentatively I have himscheduled in our Floor Sweeper for potential intervention on March 29, 2023.? As noted we are attempting to see if we can get a repair kit for this style the catheter as this is not the catheter that we will utilize locally. Copy: [facility] Ford Wen M.D., F.A.C.S. The [...] Ferrara, DO; Dr. Ford Wen MD~ Signed [facility] Work Phone: 1(101) 633-945105-11-2023 Procedure [facility] 03-28-2023 History of Present illness Narrative* Bouchra Lim LPN - 03/28/2023 10:00 AM EDT Patient here [...] not interested in this. [facility] Centeno [facility] January 18, 2023 4:50pm Note Date/Time January 18, 2023 9:20 am [facility] Medical Records Department [address] [place] [address] Progress Note - Hospitalist 01/18/23919 MR#: [id number] Acct: [id number] Name: CHRISTIAN AMADOR Rep #:[id number] : 1950 72 From: Mimi Centeno MD PCP: Dr. Castro Ferrara, DO Status:ADM IN Location: [place] [address] Reason for Visit Reason for Visit: Diagnoses [...] (Auto) 61.7, Lymph % (Auto) 18.1 L, [place] % (Auto) 12.9 H, Eos % (Auto) [...] documentation, 30minutes Charges/Coding Visit Charges Inpatient E&M: 31576 Subs Hosp L2 01/18/23 1631 <Electronically signed [...] Cosigner Signature (if applicable): cc: ~* Signed [facility] Work Phone: 1(200) 886-572203-02-2023 Consult note Author Kody Zheng [facility] January 18, 2023 11:55am Note Date/Time January 18, 2023 11:5 5am [facility] Medical Records Department [address] [place] [address] Consultation - GI 01/17/23 2330 MR#: [id number] Acct: [id number] Name: CHRISTIAN AMADOR Rep #:[id number] : 1950 72 From: Koyd Zheng DO PCP: Dr. Castro Ferrara, DO Status:ADM IN Location: [place] [id number] HPI Consult Data Date of Consult: [...] liver failure and sees a specialist at [facility].? He is on lactulose for a very [...] and he followed up with his outside fisher trap. [facility] Medical History Abnormal results of thyroid function studies Airway intubation performed without difficulty Anemia in chronic kidney disease Atherosclerotic heart disease of [place] coronary artery without angina pectoris Atrial flutter [...] (Auto) 61.7, Lymph % (Auto) 18.1 L, [place] % (Auto) 12.9 H, Eos % (Auto) [...] and mortality. Charges/Coding Visit Charges Inpatient E&M: 79746 Init Hosp L3 01/18/23 1155 <Electronically signed by Kody Zheng DO> Cosigner Signature (if applicable): CC: Dr. Bruce Calderon DO; Dr. Karthikeyan Rothman MD; Dr. Castro Ferrara DO; Kody Zheng DO~ Signed [facility] Work Phone: 1(557) 140-516003-02-2023 Procedure [facility] 01-18-2023 Procedure [facility]03-02-2023 History and physical note Author Dr. Rothman [facility] January 18, 2023 5:12am Note Date/Time January 17, 2023 9:38 pm [facility] Medical Records Department [address] [place] [address] H&P Exam - Hospitalist 01/17/232137 MR#: [id number] Acct: [id number] Name: CHRISTIAN AMADOR Rep #:[id number] : 1950 72 From: Karthikeyan Rothman MD PCP: Dr. Castro Ferrara DO Status:ADM IN Location: [facility] [id number]- 1 HPI - General General Date of [...] day of presentation ordered hemoglobin by his machine programmer returned as 7.4 (? 7.5) patient was [...] is for him to have a scope. [facility] Medical History Abnormal results of thyroid function studies Airway intubation performed without difficulty Anemia in chronic kidney disease Atherosclerotic heart disease of [place] coronary artery without angina pectoris Atrial flutter [...] (Auto) 61.7, Lymph % (Auto) 18.1 L, [place] % (Auto) 12.9 H, Eos % (Auto) [...] on INR. Charges/Coding Visit Charges Inpatient E&M: 18106 Init Hosp L3 01/18/23 0512 <Electronically signed by Karthikeyan Rothman MD> Cosigner Signature (if applicable): CC: Dr. Karthikeyan Rothman MD; Dr. Castro Ferrara DO~ Signed [facility] Work Phone: 1(942) 199-440503-01-[address] Garrison [facility] January 17, 2023 9:34pm Note Date/Time January 17, 2023 5:24 pm [facility] Medical Records Department [address] [place] [address] Emergency Department Summary 01/17/23 MR#: [id number] Acct: [id number] Name: CHRISTIAN AMADOR Rep #:[id number] : 1950 72 From: Claudio Garrison MD [...] his state that they went to his machine programmer in [place] and had lab work yesterday which showed he was anemic. They also state that he had lab work today with a hemoglobin of 7.4. He was sent in by gastroenterologybecause he will require scoping. He denies any dizziness or lightheadedness. [facility] Medical History Abnormal results of thyroid function studies Airway intubation performed without difficulty Anemia in chronic kidney disease Atherosclerotic heart disease of [place] coronary artery without angina pectoris Atrial flutter [...] patient was discussed with the hospitalist, Dr. Rotmhan, for admission to [facility] for gastroenterology consultation for endoscopy. Prior [...] (Auto) 61.7 Lymph % (Auto) 18.1 L [place] % (Auto) 12.9 H Eos % (Auto) [...] (Auto) Neut % (Auto) Lymph % (Auto) [place] % (Auto) Eos % (Auto) Baso % [...] Dx/Rx/DC Orders Clinical Impression: Anemia requiring transfusions, rn long term care (current) use of anticoagulants, Symptomatic anemia, ESRD (end stage renal disease) on dialysis Disposition Disposition: Acute Care [facility] What to do if you have Problems For any increased pain, shortness of breath, bleeding, nausea or vomiting, chestpain, or any unexpected problems, contact your Primary Care Provider. Call [facility] ([phone]) or report to the closest Emergency Room. Call 911 if necessary. 01/17/232133 <Electronically signed by Claudio Garrison MD> Cosigner Signature (if applicable): CC: Dr. Castro Ferrara, DO ~ Signed [facility] Work Phone: 1(778) 814-928003-01-[address] Garrison [facility] January 17, 2023 9:34pm Note Date/Time January 17, 2023 5:24 pm [facility] Medical Records Department [address] [place] [address] Emergency Department Summary 01/17/23 MR#: [id number] Acct: [id number] Name: CHRISTIAN AMADOR Rep #:[id number] : 1950 72 From: Claudio Garrison MD [...] his state that they went to his machine programmer in [place] and had lab work yesterday which showed he was anemic. They also state that he had lab work today with a hemoglobin of 7.4. He was sent in by gastroenterologybecause he will require scoping. He denies any dizziness or lightheadedness. [facility] Medical History Abnormal results of thyroid function studies Airway intubation performed without difficulty Anemia in chronic kidney disease Atherosclerotic heart disease of [place] coronary artery without angina pectoris Atrial flutter [...] Hyperthyroidism Hypothyroidism (acquired) Infectious endocarditis Iron deficiency rn long term care (current) use of anticoagulants Mild cognitive impairment [...] the hospitalist, Dr. Rothman, for admission to [facility] for gastroenterology consultation for endoscopy. Prior [...] (Auto) 61.7 Lymph % (Auto) 18.1 L [place] % (Auto) 12.9 H Eos % (Auto) [...] (Auto) Neut % (Auto) Lymph % (Auto) [place] % (Auto) Eos % (Auto) Baso % [...] on dialysis Disposition Disposition: Acute Care Hospital [facility] What to do if you have Problems For any increased pain, shortness of breath, bleeding, nausea or vomiting, chestpain, or any unexpected problems, contact your Primary Care Provider. Call [facility] ([phone]) or report to the closest Emergency Room. Call 911 if necessary. 01/17/232133 <Electronically signed by Claudio Garrison MD> Cosigner Signature (if applicable): CC: Dr. Castro Ferrara, DO ~ Signed [facility] Work Phone: 1(906) 489-814802-27-2023 History of Present illness Narrative* Kelby Chance, MACHINE ADJUSTER LEADER CASE TRIM-DEBURRER MACHINE - 01/15/2023 11:30 AM EST Images from [...] Laterality: N/A; Surgeon: Remy Ferrer MD; Location: [facility] INTERVENTIONAL RADIOLOGY (VIR) INSERTION CVC TUNNELED N/A 10/03/2021 Laterality: N/A; Surgeon: Kaylin Duran II, MD; Location: [facility] INTERVENTIONAL RADIOLOGY (VIR) PLACEMENT PROBE FOR [...] Laterality: Right; Surgeon: Kaylin Grider MD; [facility] INTERVENTIONAL RADIOLOGY (VIR) CARDIAC VEIN ELECTRODE PLACEMENT FOR LV PACING N/A 05/26/2016 Laterality: N/A; Surgeon: Yi Cody MD; Location: [facility] EP PACEMAKER PLACEMENT N/A 05/26/2016 Laterality: N/A; Surgeon: Yi Cody MD; Location: [facility] EP INSERTION CVC TUNNELED Right 05/19/2016 Laterality: Right; Surgeon: Kaylin Grider MD; [facility] INTERVENTIONAL RADIOLOGY (VIR) INSERTION CVC TUNNELED Left 05/18/2016 Laterality: Left; Surgeon: Kaylin Grider MD; [facility] INTERVENTIONAL RADIOLOGY (VIR) PACEMAKER ELECTRODE REMOVAL [...] Versa CARDIAC PACEMAKER PLACEMENT 08/31/2003 Implant: [employer] [id number] [place] [address] APPENDECTOMY [place] ANESTH,OPEN HEART SURGERY+PUMP Family History Problem Relation [...] by mouth at bedtime for sleep B Hqgjomt-Y-Tlmob Acid (NEPHRO-BALTAZAR PO) Take by mouth. 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 [...] N/A; Surgeon: Kaylin Duran II, MD; Location: [facility] INTERVENTIONAL RADIOLOGY (VIR) PLACEMENT PROBE FOR [...] Laterality: Right; Surgeon: Kaylin Grider MD; Location: [facility] INTERVENTIONAL RADIOLOGY (VIR) CARDIAC VEIN ELECTRODE PLACEMENT FOR LV PACING N/A 05/26/2016 Laterality: N/A; Surgeon: Yi Cody MD; Location: [facility] EP PACEMAKER PLACEMENT N/A 05/26/2016 Laterality: N/A; Surgeon: Yi Cody MD; Location: [facility] EP INSERTION CVC TUNNELED Right 05/19/2016 Laterality: Right; Surgeon: Kaylin Grider MD; Location: [facility] INTERVENTIONAL RADIOLOGY (VIR) INSERTION CVC TUNNELED Left 05/18/2016 Laterality: Left; Surgeon: Kaylin Grider MD; Location: [facility] INTERVENTIONAL RADIOLOGY (VIR) PACEMAKER ELECTRODE REMOVAL N/A 05/08/2016 Laterality: N/A; Surgeon: Luigi Mart MD; Location: [facility] EP COLONOSCOPY DIAGNOSTIC N/A 03/20/2016 Laterality: N/A; Surgeon: Jeremiah García MD; Location: [facility] ENDOSCOPY EP IMPLANT BIVENTRICULAR PACEMAKER TOTAL [...] Versa CARDIAC PACEMAKER PLACEMENT 08/31/2003 Implant: [employer] [id number] [place] [address] [place] ANESTH,OPEN HEART SURGERY+PUMP Home Medications Current Outpatient [...] care of Christian Amador. Vaishnavi Fry DO Financial Operations Analyst of Clinical Medicine Division of Gastroenterology, Hepatology and Nutrition [facility] Pager: [phone] [facility] note * Diagnosis Onset Date Resolution Status Benign essential hypertension chronic Biventricular cardiac pacemaker in situ May, chronic History of aortic valve replacement 2002 chronic History of mitral valve repair 2002 chronic Syncope resolved Biventricular cardiac pacemaker in situ May, chronic 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, stage III (moderate) acute rn long term care (current) use of anticoagulants acute Polyneuropathy acute Mild cognitive impairment ch ronic Vitamin D insufficiency cement sack breaker marvin Hyperammonemia resolved Syncope resolved Encephalopathy acute Sepsis acute Vitamin D insufficiency cement sack breaker marvin Acute encephalopathy resolve d Acute respiratory [...] Biventricular cardiac pacemaker in situ May, chronic [facility] Work Phone: 1(474) 122-874207-01-2016 Evaluation note* Diagnosis Onset Date Resolution Status [...] acute Liver cirrhosis acute GI bleed resolved [facility] Work Phone: 1(803) 758-831807-01-2016 Evaluation note* Diagnosis Onset Date Resolution Status [...] acute Liver cirrhosis acute GI bleed resolved [facility] Work Phone: 1(257) 366-596707-01-2016 Evaluation note* Diagnosis Onset Date Resolution Status [...] radiofrequency ablation (RFA) acute Pleural effusion acute [facility] Work Phone: 1(800) 251-663107-01-2016 Evaluation note* Diagnosis Onset Date Resolution Status Biventricular cardiac pacemaker in situ May, acute History of atrioventricular chiquita ablation acute Cardiomyopathy chronic Biventricular cardiac pacemaker in situ May, acute History of mitral valve repair August, acute HLD (hyperlipidemia) acute Cardiomyopathy chronic History of aortic valve replacement 2002 chronic History of cardiac radiofrequency ablation (RFA) chronic intermediate (current) use of anticoagulants chronic Other specified cardiac dysrhythmias chronic Benign essential hypertension resolved Essential tremor chronic Mild cognitive impairment ch ronic Polyneuropathy chronic Syncope resolved Biventricular cardiac pacemaker in situ May, acute History of atrioventricular chiquita ablation acute Cardiomyopathy chronic History of cardiac radiofrequency ablation (RFA) chronic Dyspnea chronic [facility] Work Phone: 1(602) 551-361707-01-2016 Evaluation note* Diagnosis Onset Date Resolution Status [...] HLD (hyperlipidemia) chronic Other specified cardiac dysrhythmias chronic [facility] Work Phone: 1([phone]) 621-688607-01-2016 Evaluation note* Diagnosis Onset Date Resolution Status Admit Date Biventricular cardiac pacema ker in situ May, acute January 28, 2025 10:02am Cardiomyopathy chronic January 10:02am History of cardiac radiofrequency ablation (RFA) chronic [facility] 2024 10:02am Biventricular cardiac pacema ker in situ May, acute January 28, 2025 10:03am History of mitral valve repair August, [facility] January 28, 2025 10:03am Benign essential hypertension chroni c January 28, 2025 10:03am CAD (coronary artery disease) chroni c January 28, 2025 10:03am Cardiomyopathy chronic January 10:03am History of aortic valve replacement 2003 chronic January 28, 2025 10:03am History of cardiac radiofrequency ablation (RFA) chronic [facility] 2024 10:03am HLD (hyperlipidemia) chronic [facility] 2024 10:03am Other specified cardiac dysrhythmias chronic January 28, 2025 10:03am Early satiety acute March 17, 2025 2:51pm Emesis, persistent acute March 17, 2025 2:51pm Necrosis of colon acute February 182024 2:51pm 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 gastropathy cement sack breaker marvin March 17, 2025 2:51pm Abnormal CT scan, chest acute M 2024 9:12am Cardiomyopathy chronic March 25, 2 025 9:12am Dyspnea chronic March 25, 2025 9:12am MIA (obstructive sleep apnea) chroni c March 25, 2025 9:12am [facility] Work Phone: 1(485) 977-487207-01-2016 Evaluation note* Diagnosis Onset Date Resolution Status Admit Date Biventricular cardiac pacemaker in situ May, acute January 28 10:02am Cardiomyopathy chronic January 10:02am History of cardiac radiofrequency ablation (RFA) chronic [facility] 2024 10:02am Biventricular cardiac pacemaker in situ May, acute January 28 10:03am History of mitral valve repair August, [facility] January 28, 2025 10:03am Benign essential hypertension chroni c January 28, 2025 10:03am CAD (coronary artery disease) chroni c January 28, 2025 10:03am Cardiomyopathy chronic January 10:03am History of aortic valve replacement 2002 chronic January 28, 2025 10:03am History of cardiac radiofrequency ablation (RFA) chronic [facility] 2024 10:03am HLD (hyperlipidemia) chronic [facility] 2024 10:03am Other specified cardiac dysrhythmias chronic [...] 2025 12:45pm Hematochezia resolved May 27 12:45pm [facility] Work Phone: 1(955) 123-267510-01-2003 Evaluation note* Diagnosis Onset Date Resolution Status [...] Anemia chronic Problem with dialysis access acute [facility] Work Phone: 1(229) 649-744310-01-2003 Evaluation note* Diagnosis Onset Date Resolution Status [...] dialysis acute Problem with dialysis access acute [facility] Work Phone: Discharge summary Author Dr. Centeno [facility] January 19, 2023 3:37pm Note Date/Time January 19, 2023 3:37 pm [facility] Medical Records Department [address] [place] [address] Instructions for Home/Discharge Instructions 01/19/23 1536 MR#: [id number] Acct: [id number] Name: CHRISTIAN AMADOR Rep #:[id number] : 1950 72 From: Mimi Centeno MD [...] office to schedule your hospital follow-up appointment (. [phone]) or call your outside provider to schedule a hospital follow-up appointment if preferred -Please resume your home Coumadin, your INR was 3.4 initially and on 01/19 it was 3.1 after a dose was held on admission due to bleeding. 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 Grullon your post office markup clerk -Please continue dialysis as scheduled -You had [...] can be placed): Home, Self Care 01/19/23 0892<Electronically signed by Mimi Centeno MD>Mimi Centeno MD CC: Dr. Bruce Calderon DO; Dr. Karthikeyan Rothman MD; Dr. Castro Ferrara DO; Kody Zheng, ~ Signed [facility] Work Phone: Evaluation note* Diagnosis Onset Date Resolution Status 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, stage III (moderate) acute rn long term care (current) use of anticoagulants acute Polyneuropathy acute Mild cognitive impairment ch ronic Vitamin D insufficiency cement sack breaker marvin Hyperammonemia resolved Syncope resolved Encephalopathy acute Sepsis acute Vitamin D insufficiency cement sack breaker marvin Acute encephalopathy resolve d Acute respiratory [...] Biventricular cardiac pacemaker in situ May, chronic [facility] Work Phone: Evaluation note* Diagnosis Cirrhosis of liver without ascites, unspecified hepatic cirrhosis type [facility] Diagnosis Onset Date Resolution Status 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, stage III (moderate) acute intermediate (current) use of anticoagulants acute Polyneuropathy acute Mild cognitive impairment ch ronic Vitamin D insufficiency cement sack breaker marvin Hyperammonemia resolved Syncope resolved Encephalopathy acute Sepsis acute Vitamin D insufficiency cement sack breaker marvin Acute encephalopathy resolve d Acute respiratory [...] Supratherapeutic INR acute Acute on chronic anemia cement sack breaker marvin History of aortic valve replacement 2002 chronic History of mitral valve repair 2002 chronic [facility] Work Phone: Evaluation note* Diagnosis Onset Date Resolution Status Polyneuropathy acute Mild cognitive impairment ch ronic Vitamin D insufficiency cement sack breaker marvin Hyperammonemia resolved Syncope resolved Encephalopathy acute Sepsis acute Vitamin D insufficiency cement sack breaker marvin Acute encephalopathy resolve d Acute respiratory [...] lved Epistaxis resolved GI (gastrointestinal bleed) resolved [facility] Work Phone: Evaluation note* Diagnosis [...] radiofrequency ablation (RFA) acute HLD (hyperlipidemia) acute rn long term care (current) use of anticoagulants acute Other specified [...] History of mitral valve repair 2002 chronic [facility] Work Phone: Evaluation note* Diagnosis Cirrhosis of liver without ascites, unspecified hepatic cirrhosis type- Primary [facility] Diagnosis Onset Date Resolution Status Debility [...] MIA (obstructive sleep apnea) acute Hematochezia resolved [facility] Work Phone: Evaluation note* Diagnosis [...] Supratherapeutic INR acute Acute on chronic anemia cement sack breaker marvin Benign essential hypertension chronic History of aortic valve replacement 2002 chronic History of mitral valve repair 2002 chronic Hyperammonemia chronic Acute metabolic encephalopathy resolved [facility] Work Phone: Evaluation note* Diagnosis [...] resolved Hyperkalemia resolved Supratherapeutic INR resolve d [facility] Work Phone: Evaluation note* Diagnosis Onset Date Resolution Status Hyperammonemia resolved Syncope resolved Cough resolved Dyspnea resolved GI bleed acute Hematochezia resolved Acute metabolic encephalopathy resolved Acute on chronic anemia reso lved Debility resolved GI bleed resolved Hyperammonemia resolved Hyperkalemia resolved Supratherapeutic INR resolve d [facility] Work Phone: Evaluation note* Diagnosis Onset Date Resolution Status Cough resolved Dyspnea resolved GI bleed acute Hematochezia resolved Acute metabolic encephalopathy resolved Acute on chronic anemia reso lved Debility resolved GI bleed resolved Hyperammonemia resolved Hyperkalemia resolved Supratherapeutic INR resolve d [facility] Work Phone: Evaluation note* Diagnosis [...] History of cardiac radiofrequency ablation (RFA) acute [facility] Work Phone: Evaluation note* Diagnosis Cirrhosis of liver without ascites, unspecified hepatic cirrhosis type- Primary [facility] Diagnosis Onset Date Resolution Status GI [...] (end stage renal disease) on dialysis acute rn long term care (current) use of anticoagulants acute Symptomatic anemia acute [facility] Work Phone: Evaluation note* Diagnosis Onset Date Resolution Status GI bleed acute Hyperammonemia chronic Mild cognitive impairment ch ronic Polyneuropathy chronic Syncope resolved Benign essential hypertension acute Biventricular cardiac pacemaker in situ May, acute History of cardiac radiofrequency ablation (RFA) acute History of mitral valve repair August, acute HLD (hyperlipidemia) acute rn long term care (current) use of anticoagulants acute Biventricular cardiac pacemaker in situ May, acute History of atrioventricular chiquita ablation acute History of cardiac radiofrequency ablation (RFA) acute ABLA (acute blood loss anemia) acute Anemia requiring transfusions acute Atherosclerotic heart diseas e of [place] coronary artery without angina pectoris acute Benign essential hypertension acute ESRD (end stage renal disease) on dialysis acute History of mechanical aortic valve replacement August acute History of mitral valve repair August, acute Liver cirrhosis acute intermediate (current) use of anticoagulants acute Symptomatic anemia acute GI bleed resolved [facility] Work Phone: Evaluation note* Diagnosis Urinary frequency- Primary [facility] Other cirrhosis of liver- Primary [facility] Onset Date Resolution Status [...] History of cardiac radiofrequency ablation (RFA) chronic intermediate (current) use of anticoagulants chronic Other specified cardiac dysrhythmias chronic Benign essential hypertension resolved [facility] Work Phone: Evaluation note* Diagnosis [...] History of cardiac radiofrequency ablation (RFA) chronic intermediate (current) use of anticoagulants chronic Other specified cardiac dysrhythmias chronic Benign essential hypertension resolved [facility] Work Phone: Evaluation note* Diagnosis SSS [...] Sinoatrial node dysfunction [facility] Diagnosis SSS (sick sinus syndrome) Sinoatrial node dysfunction SSS (sick sinus syndrome) Sinoatrial node dysfunction [facility] Other cirrhosis of liver- Primary [facility] Diagnosis Cirrhosis of liver without ascites, unspecified hepatic cirrhosis type Frailty Senility without mention of psychosis Physical deconditioning Debility, unspecified [facility] Atrial fibrillation- Primary A-fib [...] of liver- Primary [facility] Atrial fibrillation- Primary A-fib [...] Coronary atherosclerosis of unspecified type of vessel, [place] or graft Chronic systolic heart failure Electrolyte disorder (K, Cl, or Na) Electrolyte and fluid disorders not elsewhere classified H/O mechanical aortic valve replacement Heart valve replaced by other means HTN (hypertension), benign Essential hypertension, benign S/P radiofrequency ablation operation for arrhythmia Other postprocedural status [facility] Atrial fibrillation- Primary A-fib [...] Platelets) Thrombocytopenia, unspecified [facility] Atrial fibrillation- Primary A-fib [...] steatohepatitis (MASH) [facility] Attachments The following attachments cannot be sent through Care Everywhere. * [facility] ([facility] ([place]) [facility] for [facility] (narrative)No reason for referral information availableWCleveland Clinic [facility] Work Phone: Reason for visit Narrative* Auth/Cert (Routine) Specialty Diagnoses / Procedures Referred By Pricial anthony Referred To Contact Diagnoses Pneumonia (Empyema) Fernanda Parra MD [address] [place] [address] Phone: tel: fax: [facility] [address] [place] [address] Referral ID Status Reason Start Date Expiration Date Visits Re quested Visits Authorized [id number] 1 1 [facility] Summary Purpose Family History No Family History Records Found Relationship Condition Age at Onset Recorded Date/T carleen father Coronary artery disease Unknown brother Coronary artery disease Unknown mother Diabetes mellitus Unknown sister Malignant neoplasm of breast Unknown Diabetes mellitus Unknown sister Malignant neoplasm Unknown Advance Directives No Advanced Directives Records Found Date Activated Date Inactivated Comments 06/24/2025 10:31 AM 07/15/2025 8:50 PM Question Answer Comments Full Code Order Discussed With: Patient Advance Directive Response Recorded Date/ Time Advance Directives Yes September 22, 2020 1:15pm Living Will Yes January 10 4:07pm Power of Lead Printer Yes January 10, 2022 4:07pm Latest Code [...] Date/ Time Name of Medical Power of Lead Printer ANNA AMADOR January 10, 2022 4:07pm Advance Directives Yes September 22, 2020 1:15pm Living Will No April 04, 2022 9 :10am Power of Lead Printer No April 04, 2022 9:10am Advance Directive Response Recorded Date/ Time Name of Medical Power of Lead Printer ANNA AMADOR January 10, 2022 4:07pm Advance Directives Yes September 22, 2020 1:15pm Living Will No April 08, 2022 5 :45am Power of Lead Printer No April 08, 2022 5:45am Advance Directive Response Recorded Date/ Time Advance Directives Yes September 22, 2020 1:15pm Living Will No April 08, 2022 5 :45am Power of Lead Printer No April 08, 2022 5:45am Advance Directive Response Recorded Date/ Time Advance Directives on File Yes 2019 1:15pm Name of Medical Power of Lead Printer ANNA AMADOR () September 22, 2020 1:15pm Name of Medical Power of Lead Printer July 15, 2022 11:54am Advance Directives Yes September 22, 2020 1:15pm Living Will Yes July 15 11:54am Power of Lead Printer Yes July 15, 022 11:54am Advance Directive Response Recorded Date/ Time Advance Directives on File Yes 2019 1:15pm Name of Medical Power of Lead Printer ANNA AMADOR () September 22, 2020 1:15pm Name of Medical Power of Lead Printer Anna Amador July 15, 2022 8:00pm Advance Directives Yes September 22, 2020 1:15pm Living Will Yes July 15 8:00pm Power of Lead Printer Yes July 15, 022 8:00pm Advance Directive Response Recorded Date/ Time Advance Directives Yes September 22, 2020 12:15pm Living Will Yes July 15 7:00pm Power of Lead Printer Yes July 15, 7:00pm Latest Code Status on File Code [...] No January 17, 2023 5:51pm Power of Lead Printer No January 17 5:51pm Advance Directive Response Recorded Date/ Time Name of Medical Power of Lead Printer anna gotti January 17, 2023 10:33pm Advance Directives Yes September 22, 2020 12:15pm Living Will Yes January 17, 2023 10:33pm Power of Lead Printer Yes January 17 10:33pm Advance Directive Response Recorded Date/ Time Name of Medical Power of Lead Printer anna lacy ana maría January 17, 2023 11:33pm Advance Directives Yes September 22, 2020 1:15pm Living Will Yes January 17, 2023 11:33pm Power of Lead Printer Yes January 17 11:33pm Latest Code Status [...] Date/ Time Name of Medical Power of Lead Printer anna gotti January 17, 2023 11:33pm Advance Directives on File Yes March 192022 9:06am Name of Medical Power of Lead Printer (Anna March 29, 2023 9:06am Advance Directives Yes March 29 9:06am Living Will Yes March 29, 2023 9 :06am Power of Lead Printer Yes March 29, 2023 9:06am Advance Directive Response Recorded Date/ Time Name of Medical Power of Lead Printer anna lacy ana maría January 17, 2023 11:33pm Advance Directives on File Yes March 192022 9:06am Name of Medical Power of Lead Printer (Anna March 29, 2023 9:06am Name of Medical Power of Lead Printer Anna MOISE wi fe March 29, 2023 5:12pm Advance Directives Yes March 29 9:06am Living Will Yes March 29, 2023 5 :12pm Power of Lead Printer Yes March 29, 2023 5:12pm Latest Code [...] 2019 1:15pm Name of Medical Power of Lead Printer ANNA AMADOR () September 22, 2020 1:15pm Advance Directives on File Yes March 192022 9:06am Name of Medical Power of Lead Printer (Anna March 29, 2023 9:06am Name of Medical Power of Lead Printer Anna MOISE, wi fe March 29, 2023 5:12pm Advance Directives Yes March 29 9:06am Living Will Yes March 29, 2023 5 :12pm Power of Lead Printer Yes March 29, 2023 5:12pm Advance Directive Response Recorded Date/ Time Advance Directives on File Yes 2019 1:15pm Name of Medical Power of Lead Printer ANNA AMADOR () September 22, 2020 1:15pm Advance Directives Yes March 29 9:06am Living Will Yes March 29, 2023 5 :12pm Power of Lead Printer Yes March 29, 2023 5:12pm Advance Directive Response Recorded Date/ Time Advance Directives Yes March 29 8:06am Living Will Yes March 29, 2023 4 :12pm Power of Lead Printer Yes March 29, 2023 4:12pm Date Activated [...] Do you have a Healthcare Power of Lead Printer? Yes March 29, 2023 5:12pm Living Will Yes December 16 6:17pm Do you have a Healthcare Power of Lead Printer? Yes December 16, 2024 6:17pm Name of Medical Power of Lead Printer Crys Mcguire December 16, 2024 6:17pm Living Will Yes February 12, 2025 10:36pm Do you have a Healthcare Power of Lead Printer? Yes February 12, 2025 10:36pm Name of Medical Power of Lead Printer --anna February 12, 2025 10:36pm Living Will Yes December 17 8:43pm Do you have a Healthcare Power of Lead Printer? Yes December 17, 2024 8:43pm Name of Medical Power of Lead Printer ANNA MCGUIRE December 17, 2024 8:43pm Advance [...] Do you have a Healthcare Power of Lead Printer? Yes March 29, 2023 5:12pm Living Will Yes February 12, 2025 10:36pm Do you have a Healthcare Power of Lead Printer? Yes February 12, 2025 10:36pm Name of Medical Power of Lead Printer --anna February 12, 2025 10:36pm Do you have a Healthcare Power of Lead Printer? Yes April 18, 2025 6:23pm Name of Medical Power of Lead Printer Anna Amador April 18, 2025 6:23pm Advance Directives Yes March 29 9:06am Advance Directive Response Recorded Date/ Time Living Will Yes March 29, 2023 5 :12pm Do you have a Healthcare Pow er of Lead Printer? Yes March 29, 2023 5:12pm Advance Directives on File Yes 2019 1:15pm Living Will Yes September 22 1:15pm Do you have a Healthcare Pow er of Lead Printer? Yes September 22, 2020 1:15pm Name of Medical Power of Lead Printer ANNA AMADOR () September 22, 2020 1:15pm Living Will Yes February 12, 2025 10:36pm Do you have a Healthcare Pow er of Lead Printer? Yes February 12, 2025 10:36pm Name of Medical Power of Lead Printer --anna February 12, 2025 10:36pm Do you have a Healthcare Pow er of Lead Printer? Yes April 18, 2025 6:23pm Name of Medical Power of Lead Printer Anna Amador April 18, 2025 6:23pm Advance Directives Yes March 29 9:06am Advance Directive Response Recorded Date/ Time Advance Directives on File Yes 2019 1:15pm Living Will Yes September 22 1:15pm Do you have a Healthcare Pow er of Lead Printer? Yes September 22, 2020 1:15pm Name of Medical Power of Lead Printer ANNA AMADOR () September 22, 2020 1:15pm Do you have a Healthcare Pow er of Lead Printer? Yes April 18, 2025 6:23pm Name of Medical Power of Lead Printer Anna Amador April 18, 2025 6:23pm Do you have a Healthcare Pow er of Lead Printer? Yes June 14, 2025 9:01am Advance Directives Yes March 29 9:06am Advance Directive Response Recorded Date/ Time Advance Directives on File Yes 2019 1:15pm Living Will Yes September 22 1:15pm Do you have a Healthcare Pow er of Lead Printer? Yes September 22, 2020 1:15pm Name of Medical Power of Lead Printer ANNA AMADOR () September 22, 2020 1:15pm Do you have a Healthcare Pow er of Lead Printer? Yes April 18, 2025 6:23pm Name of Medical Power of Lead Printer Anna Amador April 18, 2025 6:23pm Do you have a Healthcare Pow er of Lead Printer? Yes June 14, 2025 9:01am Do you have a Healthcare Pow er of Lead Printer? Yes June 23, 2025 10:41am Advance Directives Yes March 29 9:06am Date Activated Date Inactivated Comments 06/24/2025 10:31 AM Chief Complaint and Reason for Visit Chief Complaint S/P [facility] ([facility]) PPM CK S/O TIEN WEAKNESS/ PT BRING RX S/O kidney desaese VM 12/12, FISTULA HYPERKALEMIA SYNCOPE EPISODES/HOSP FU SEPSIS,ACUTE HYPOXIC RESP FAILURE,ENCEPHALOPATHY SEPSIS,ACUTE HYPOXIC RESP FAILURE,ENCEPHALOPATHY SEPSIS,ACUTE HYPOXIC RESP FAILURE,ENCEPHALOPATHY SEPSIS,ACUTE HYPOXIC RESP FAILURE,ENCEPHALOPATHY SEPSIS,ACUTE HYPOXIC RESP FAILURE,ENCEPHALOPATHY S/O/ LABS FROM 2 OTHER DRS/CC [facility] Hospital FU 3 mos SALES INTERN-P f/u Sees J[facility] @ 9AM SLEEP APNEA; LM 02/06 S/O/ LABS FROM 2 OTHER DRS/CC [facility] Dyspnea, unspecified Dyspnea, unspecified [...] LABS FROM 2 OTHER DRS/CC INR TO [facility] FU 3 mos SALES INTERN-P f/u Sees JHR @ 9AM SLEEP APNEA; LM 02/06 S/O/ LABS FROM 2 OTHER DRS/CC [facility] TO [facility] Dyspnea, unspecified Dyspnea, unspecified S/O/ LABS FROM 2 OTHER DRS/CC [facility] TO [facility] ENCEPHALOPATHY Reason for Visit Benign essential hyp ertension Biventricular cardiac pacemaker in situ History of aortic valve replacement History of mitral valve repair Syncope Biventricular cardiac pacemaker in situ 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, stage III (moderate) rn long term care (current) use of anticoagulants Polyneuropathy Mild cognitive [...] FROM 2 OTHER DRS/CC INR [facility] FU 3 mos SALES INTERN-P f/u Sees J[facility] @ 9AM SLEEP APNEA; LM 02/06 S/O/ LABS FROM 2 OTHER DRS/CC [facility] Dyspnea, unspecified Dyspnea, unspecified S/O/ LABS FROM 2 OTHER DRS/CC [facility]R TO [facility] ENCEPHALOPATHY Reason for Visit Chronic kidney disea [...] LABS FROM 2 OTHER DRS/CC INR TO [facility] FU 3 mos SALES INTERN-P f/u Sees JHR @ 9AM SLEEP APNEA; LM 02/06 S/O/ LABS FROM 2 OTHER DRS/CC [facility]R TO [facility] Dyspnea, unspecified Dyspnea, unspecified ENCEPHALOPATHY S/O/ LABS FROM 2 OTHER DRS/CC INR TO [facility] Reason for Visit Chronic kidney disea se, stage III (moderate) rn long term care (current) use of anticoagulants Polyneuropathy Mild cognitive [...] LABS FROM 2 OTHER DRS/CC INR TO [facility] FU 3 mos SALES INTERN-P f/u Sees JHR @ 9AM SLEEP APNEA; LM 02/06 S/O/ LABS FROM 2 OTHER DRS/CC [facility]R [facility] Dyspnea, unspecified Dyspnea, unspecified ENCEPHALOPATHY S/O/ LABS FROM 2 OTHER DRS/CC [facility]R TO [facility] S/O GI BLEED GI BLEED GI BLEED [...] LABS FROM 2 OTHER DRS/CC INR TO [facility] FU 3 mos SALES INTERN-P f/u Sees JHR @ 9AM SLEEP APNEA; LM 02/06 S/O/ [facility], [facility] Dyspnea, unspecified ENCEPHALOPATHY S/O/ LABS FROM 2 OTHER DRS/CC [facility] GI BLEED GI BLEED GI BLEED GI BLEED GI BLEED S/O nose bleed Reason for Visit Chronic kidney disea se, stage III (moderate) rn long term care (current) use of anticoagulants Polyneuropathy Mild cognitive [...] 2 OTHER DRS/CC [facility] Hospital FU 3 mos SALES INTERN-P f/u Sees JHR @ 9AM SLEEP APNEA; LM 02/06 S/O/ LAB[facility] D[facility], unspecified Dyspnea, unspecified ENCEPHALOPATHY S/O/ LABS [facility]LE[facility] GI BLEED GI BLEED GI [...] bleed) Chief Complaint Hospital FU 3 mos SALES INTERN-P f/u Sees JHR @ 9AM SLEEP APNEA; LM 02/06 S/O/ LABS [facility] Dyspnea, unspecified Dyspnea, unspecified ENCEPHALOPATHY S/O/ LABS FROM 2 OTHER DRS/CC [facility] GI BLEED GI BLEED GI BLEED GI BLEED GI BLEED nose bleed S/O 3 M FU 3 mo SALES INTERN-P fu/PFM 3:30 S/O ADD'L E ORDERS DR [...] bleed S/O 3 M FU 3 mo SALES INTERN-P fu/PFM 3:30 S/O ADD'L E ORDERS DR [...] bleed S/O 3 M FU 3 mo SALES INTERN-P fu/PFM 3:30 S/O ADD'L E ORDERS DR [...] of cardiac radiofrequency ablation (RFA) HLD (hyperlipidemia) rn long term care (current) use of anticoagulants Other specified cardiac [...] bleed S/O 3 M FU 3 mo SALES INTERN-P fu/PFM 3:30 S/O ADD'L E ORDERS DR [...] Chief Complaint 3 M FU 3 mo SALES INTERN-P fu/PFM 3:30 S/O ADD'L E ORDERS DR [...] ESRD (end stage renal disease) on dialysis rn long term care (current) use of anticoagulants Symptomatic anemia Chief [...] History of mitral valve repair HLD (hyperlipidemia) rn long term care (current) use of anticoagulants Biventricular cardiac pacemaker in situ History of atrioventricular chiquita ablation History of cardiac radiofrequency ablation (RFA) ABLA (acute blood loss anemia) Anemia requiring transfusions Atherosclerotic heart disease of [place] coronary artery without angina pectoris Benign essential hypertension ESRD (end stage renal disease) on dialysis History of mechanical aortic valve replacement History of mitral valve repair Liver cirrhosis intermediate (current) use of anticoagulants Symptomatic anemia GI [...] SYMPTOMATIC ANEMIA SYMPTOMATIC ANEMIA s/o 3 MO [facility] FU EORDER Reason for Visit Biventricular [...] SYMPTOMATIC ANEMIA SYMPTOMATIC ANEMIA s/o 3 MO [facility] FU EORDER 6 MO FU CVC [...] SYMPTOMATIC ANEMIA SYMPTOMATIC ANEMIA s/o 3 MO [facility] FU EORDER 6 MO FU CVC [...] SYMPTOMATIC ANEMIA SYMPTOMATIC ANEMIA s/o 3 MO [facility] FU EORDER 6 MO FU CVC [...] January 28, 2025 9:0 0am 3 mos SALES INTERN-P f/u / JHR @ 10:30 January 10:02am 6 m fu / ALLY @ 10 January 28, 2025 10: 03am GI BLEED, PNEUMONIA February 12, 2025 10: 15pm Reason for Visit Admit Date Essential tremor November 25, 2024 1: 45pm Hyperammonemia November 25, 2024 1: 45pm Mild cognitive impairment November 25, 025 1:45pm Polyneuropathy November 25, 2024 1: [...] 10: 03am History of aortic valve replacement [facility] 2024 10:03am History of cardiac radiofrequency ablati on (RFA) January 28, 2025 10:03am HLD (hyperlipidemia) January 28, 2025 10 :03am Other specified cardiac dysrhythmias [facility] 2024 10:03am Chief Complaint Admit Date DIALYSIS CATHETER CHECK December 16 2:27pm DIALYSIS CATHETER CHECK December 16 7:36pm DIALYSIS PORT LEAKING December 17, 2024 3:59pm MADRID CIRRHOSIS, HCC SCREEN December 8:45am D63.1 January 22, 2025 2:00 pm Pacer Check Remote January 28, 2025 9:0 0am 3 mos SALES INTERN-P f/u / JHR @ 10:30 January 10:02am [...] 10: 03am History of aortic valve replacement [facility] 2024 10:03am History of cardiac radiofrequency ablati on (RFA) January 28, 2025 10:03am HLD (hyperlipidemia) January 28, 2025 10 :03am Other specified cardiac dysrhythmias [facility] 2024 10:03am Early satiety March 17, 2025 2:5 1pm Emesis, persistent March 17, 2025 2:5 1pm Necrosis of colon March 17, 2025 2:5 1pm 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 gastropathy March 172024 2:51pm Abnormal CT scan, chest March 25, 2025 9: 12am Cardiomyopathy March 25, 2025 9:12am Dyspnea March 25, 2025 9:12am MIA (obstructive sleep apnea) March 25, 025 9:12am Chief Complaint Admit Date DIALYSIS CATHETER CHECK December 16 2:27pm DIALYSIS CATHETER CHECK December 16 7:36pm DIALYSIS PORT LEAKING December 17, 2024 3:59pm MADRID CIRRHOSIS, HCC SCREEN December 8:45am D63.1 January 22, 2025 2:00 pm Pacer Check Remote January 28, 2025 9:0 0am 3 mos SALES INTERN-P f/u / JHR @ 10:30 January 10:02am 6 m fu / ALLY @ 10 January 28, 2025 10: 03am GI BLEED, PNEUMONIA February 12, 2025 10: 15pm Hospital FU March 17, 2025 2:5 1pm HYPEREMESIS March 23, 2025 1:53pm Hospital Follow up March 25, 2025 9:12am R06.00 - Dyspnea, unspecified April 08, 2025 7:52am Chief Complaint Admit Date MADIRD CIRRHOSIS, HCC SCREEN December 8:45am D63.1 January 22, 2025 2:00 pm Pacer Check Remote January 28, 2025 9:0 0am 3 mos SALES INTERN-P f/u / JHR @ 10:January 10:02am 6 [...] January 28, 2025 9:0 0am 3 mos SALES INTERN-P f/u / JHR @ :January 10:02am 6 [...] January 28, 2025 9:0 0am 3 mos SALES INTERN-P f/u / JHR @ 10:January 10:02am 6 [...] 10: 03am History of aortic valve replacement [facility] 2024 10:03am History of cardiac radiofrequency ablati on (RFA) January 28, 2025 10:03am HLD (hyperlipidemia) January 28, 2025 10 :03am Other specified cardiac dysrhythmias [facility] 2024 10:03am Early satiety March 17, 2025 2:5 1pm Emesis, persistent March 17, 2025 2:5 1pm Necrosis of colon March 17, 2025 2:5 1pm 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 gastropathy March 172024 2:51pm Abnormal CT scan, chest March 25, 2025 9: 12am Cardiomyopathy March 25, 2025 9:12am Dyspnea March 25, 2025 9:12am MIA (obstructive sleep apnea) March 25, 2 025 9:12am GI bleed May 27, 2025 [...] 9:12am MIA (obstructive sleep apnea) March 25, 2 025 9:12am GI bleed June 01, 2025 8:34 am Hematochezia June 01, 2025 8:34 am Chief Complaint Admit Date Hospital FU March [...] back pain June 23, 2025 10: 16am Chief Complaint Admit Date R06.00 - Dyspnea, unspecified April 08, 2025 [...] back pain June 23, 2025 10: 16am LAB WORK July 16, 2025 5: 00am Admission exam July 16, 2025 2: 52pm LAB WORK July 17, 2025 5: 00am Reason for Visit Admit Date GI bleed June 01, 2025 8:34 am Hematochezia June 01, 2025 8:34 am Reason for Referral Specialty Diagnoses / Procedures Referred By Contac t Referred To Contact Diagnoses Cirrhosis of liver without ascites, unspecified hepatic cirrhosis type Procedures US ABDOMEN RUQ/LIVER/GB Kelby Chance MACHINE ADJUSTER LEADER CASE TRIM-DEBURRER MACHINE [address] [place] [address] Referral ID Status Reason Start Date Expiration Date V isits Requested Visits Authorized [id number] New Request 12/19/2021 01/13/2023 1 1 Specialty Diagnoses / Procedures Referred By Contac t Referred To Contact Diagnoses Cirrhosis of liver without ascites, unspecified hepatic cirrhosis type Procedures US ABDOMEN RUQ/LIVER/GB Vaishnavi Fry, DO [address] [place] [address] Referral ID Status Reason Start Date Expiration Date V isits Requested Visits Authorized [id number] New Request 07/14/2022 08/08/2023 1 1 Specialty Diagnoses / Procedures Referred By Contac t Referred To Contact Diagnoses Cirrhosis of liver without ascites, unspecified hepatic cirrhosis type Procedures US ABDOMEN LIVER DOPPLER Kelby Chance MACHINE ADJUSTER LEADER CASE TRIM-DEBURRER MACHINE [address] [place] [address] Referral ID Status Reason Start Date Expiration Date V isits Requested Visits Authorized [id number] New Request 01/15/2023 02/09/2024 1 1 Specialty Diagnoses / Procedures Referred By Contac t Referred To Contact Diagnoses Other cirrhosis of liver Procedures CT ABDOMEN WITH AND WITHOUT CONTRAST VT CT SCAN OF ABDOMEN COMBO Vaishnavi Fry, DO [address] [place] [address] Referral ID Status Reason Start Date Expiration Date V isits Requested Visits Authorized [id number] New Request 07/13/2023 08/06/2024 1 1 Specialty Diagnoses / Procedures Referred By Contac t Referred To Contact Diagnoses SSS (sick sinus syndrome) PAF (paroxysmal atrial fibrillation) Procedures ECHOCARDIOGRAM LIMITED/FOLLOWUP VT ECHO HEART XTHORACIC,LIMITED VT DOPPLER ECHO HEART,LIMITED,F/U VT DOPPLER COLOR FLOW VELOCITY MAP Carla Damon, MBBS [address] [place] [address] Referral ID Status Reason Start Date Expiration Date V isits Requested Visits Authorized [id number] New Request 03/17/2024 04/11/2025 1 1 Specialty Diagnoses / Procedures Referred By Contac t Referred To Contact Procedures ECG Aileen Phoenix, MACHINE ADJUSTER LEADER CASE TRIM-DEBURRER MACHINE [address] [place] [address] Referral ID Status Reason Start Date Expiration Date V isits Requested Visits Authorized [id number] New Request 04/02/2024 04/27/2025 1 1 Specialty Diagnoses / Procedures Referred By Contac t Referred To Contact Diagnoses Other cirrhosis of liver Procedures US ABDOMEN RUQ/LIVER/GB Vaishnavi Fry, DO [address] [place] [address] Referral ID Status Reason Start Date Expiration Date V isits Requested Visits Authorized [id number] New Request 04/16/2024 05/11/2025 1 1 Specialty Diagnoses / Procedures Referred By Contac t Referred To Contact Diagnoses Other cirrhosis of liver Cirrhosis of liver without ascites, unspecified hepatic cirrhosis type Frailty Procedures US ABDOMEN RUQ/LIVER/GB Kelby Chance, MACHINE ADJUSTER LEADER CASE TRIM-DEBURRER MACHINE [address] [place] [address] Referral ID Status Reason Start Date Expiration Date V isits Requested Visits Authorized [id number] New Request 12/05/2023 12/29/2024 1 1 Specialty Diagnoses / Procedures Referred By Contac t Referred To Contact Diagnoses Other cirrhosis of liver Procedures US ABDOMEN RUQ/LIVER/GB Jackie Chanceah Jayesh, MACHINE ADJUSTER LEADER CASE [facility] [address] [place] [address] Referral ID Status Reason Start Date Expiration Date V isits Requested Visits Authorized [id number] New Request 10/22/2024 11/16/2025 1 1 Specialty Diagnoses / Procedures Referred By Contac t Referred To Contact Procedures Trina No, MACHINE ADJUSTER LEADER CASE [facility] [address] [place] [id number] Referral ID Status Reason Start Date Expiration Date V isits Requested Visits Authorized [id number] New Request 12/19/2024 01/13/2026 1 1 Specialty Diagnoses / Procedures Referred By Contac t Referred To Contact Procedures NO PHARMACOLOGICAL DVT PROPHYLAXIS Malcom Chicas MD [address] [place] [address] Referral ID Status Reason Start Date Expiration Date V isits Requested Visits Authorized [id number] New Request 12/18/2024 01/12/2026 1 1 Specialty Diagnoses / Procedures Referred By Contac t Referred To Contact Procedures DVT/VTE RISK ASSESSMENT Malcom Chicas MD [address] [place] [address] Referral ID Status Reason Start Date Expiration Date V isits Requested Visits Authorized [id number] New Request 12/18/2024 01/12/2026 1 1 Additional Source Comments (unrecognized sect ion and content) No Status Records FoundNo Status Records FoundNo Status Records FoundNo Status Records FoundNo Status Records Found INFORMATION SOURCE (unrecogn ized section and content) DATE CREATED AUTHOR 06/25/2021 [email or web address] [facility] DATE CREATED AUTHOR 'S SCOTIZ ATION 04/18/2025 [facility] DATE CREATED AUTHOR AUTHOR'S ORGANIZ ATION 07/17/2025 [facility] DATE CREATED AUTHOR AUTHOR'S ORGANIZ ATION 08/02/2025 [facility] DATE CREATED AUTHOR AUTHOR'S ORGANIZ ATION 08/07/2025 [facility] Goals (unrecognized section and content) Goals may [...] content) Specialty Diagnoses / Procedures Referred By Contspencer anthony Referred To Contact Diagnoses Cirrhosis of liver without ascites, unspecified hepatic cirrhosis type Procedures US ABDOMEN RUQ/LIVER/GB Kelby Chance, MACHINE ADJUSTER LEADER CASE [facility] [address] [place] [address] Referral ID Status Reason Start Date Expiration Date V isits Requested Visits Authorized [id number] New Request 12/19/2021 01/13/2023 1 1 Reason Comments Follow-up Reason Comments Follow-up Cirrhosis Reason Comments Cystoscopy Specialty Diagnoses / Procedures Referred By Contac t Referred To Contact Urology Diagnoses Abnormal radiologic findings on diagnostic imaging of renal pelvis, ureter, or bladder Procedures VT CYSTOURETHROSCOPY FOR DIAGNOSIS Mingo Shine MD [address] [place] [address] Referral ID Status Reason Start Date Expiration Date V isits Requested Visits Authorized [id number] New Request 02/06/2023 03/02/2024 1 1 Reason Onset Date Comments Medication Refill 10/03/2023 Specialty Diagnoses / Procedures Referred By Contac t Referred To Contact Diagnoses SSS (sick sinus syndrome) PAF (paroxysmal atrial fibrillation) Procedures ECHOCARDIOGRAM LIMITED/FOLLOWUP VT ECHO HEART XTHORACIC,LIMITED VT DOPPLER ECHO HEART,LIMITED,F/U VT DOPPLER COLOR FLOW VELOCITY MAP Carla Damon MBBS [address] [place] [address] Referral ID Status Reason Start Date Expiration Date V isits Requested Visits Authorized [id number] New Request 03/17/2024 04/11/2025 1 1 Specialty Diagnoses / Procedures Referred By Contac t Referred To Contact Diagnoses SSS (sick sinus syndrome) SSS (sick sinus syndrome) [I49.5] Procedures VT RMVL IMPLTBL DFB PLSE GEN W/REPL PLSE GEN 1 LEAD ICD GENERATOR CHANGEOUT Ronnie Ferrari MD [address] [place] [address] [address] [place] [address] [facility] [address] [place] [address] Referral ID Status Reason Start Date Expiration Date Visits Re quested Visits Authorized [id number] 1 1 Reason Comments Follow-up Patient's state s he gets tired often. Reason Comments Cirrhosis Cirrhosis of liver w ithout ascites, unspecified hepatic cirrhosis type Follow-up Reason Comments Follow-up Pt is being seen for 6 month follow up. Specialty Diagnoses / Procedures Referred By Contac t Referred To Contact Diagnoses Issues with Carly Saab MD [address] [place] [address] [facility] [address] [place] [address] Referral ID Status Reason Start Date Expiration Date Visits Re quested Visits Authorized [id number] 1 1 Reason Comments Follow-up Pt's states he was in the hospital at [facility] in 02/13/2025- 03/09/2025 for pneumonia, rectal bleeding, cat scan of abdomen and gastric emptying test done at [place]. Reason Comments CoPat Start Reason Comments Results Reason Comments CoPat Management Care Teams (unrecognized sec tion and content) Window Installer Relationship Specialty Start Date End Date Vinny Atkinson MD [address] [place] [phone] PCP - General Family Medicine 02/26/21 Jeff Grullon MD [address] [facility] [place] [address] Cardiovascular Medicine 05/19/13 Karthikeyan Turner MB/CHB [address] [place] [address] Oncologist Hematology 08/28/21 [place] Calderon DO [address] [place] [address] Technical Buyer Nephrology 08/28/21 Isaac Min MD [address] [place] [address] Social Sciences Research Scientist Pulmonary Disease 08/28/21 Window Installer Relationship Specialty Start Date End Date Vinny Atkinson MD [address] [place] [phone] PCP - General Family Medicine 02/26/21 Jeff Grullon MD [address] [facility] [place] [address] Cardiovascular Disease 05/19/13 Karthikeyan Turner MB/CHB [address] [place] [address] Oncologist Hematology 08/28/21 [place] Calderon DO [address] [place] [address] Technical Buyer Nephrology 08/28/21 Isaac Min MD [address] [place] [address] Social Sciences Research Scientist Pulmonary Disease 08/28/21 Team Status: Active Member [...] Atkinson MD Referring Provider Active Deja Jewell DOG CONTROL OFFICER, DOG CONTROL OFFICER-C Attending Provider Active Dr. Castro Ferrara DO [...] Vinny Atkinson MD Primary Care Provider, Family Sc ovider Active Dr. Jeff Grullon MD Attending [...] Provider Active ANG DAVIS Other Provider Active Window Installer Relationship Specialty Start Date End Date Vinny Atkinson MD [address] [place] [address] PCP - General Family Medicine 02/26/21 Jeff Grullon MD [address] [facility], [address] [place] [address] Cardiovascular Disease 05/19/13 Karthikeyan Turner MB/CHB [address] [place], [place] [address] Oncologist Hematology 08/28/21 [place] Calderon DO [address] [place] [address] Technical Buyer Nephrology 08/28/21 Isaac Min MD [address] [place] [address] Social Sciences Research Scientist Pulmonary Disease 08/28/21 Team Status: Inactive Member [...] Active Member Role Status Dates Dr. Castro Josias , DO Primary Care Provider Active Dr. oKdy Zheng , DO Attending Provider Active Team [...] Provider, Referrin g Provider Active Sue Roberts DOG CONTROL OFFICER, DOG CONTROL OFFICER-C Attending Provider Active Team Status: Inactive Member Role Status Dates Dr. Castro Ferrara DO Primary Care Provider Active Sue Roberts DOG CONTROL OFFICER, DOG CONTROL OFFICER-C Attending Provider, Referrin g Provider Active Window Installer Relationship Specialty Start Date End Date Castro Ferrara DO [address] [place] [address] [place] [address] PCP - General Family Medicine 02/03/23 Jeff Grullon MD [address]61 [facility] [place] [address] Cardiovascular Disease 05/19/13 Karthikeyan Turner MB/ASAD [address] [facility] [place] [address] Oncologist Hematology 08/28/21 [place] Calderon DO [address] [place] [address] Technical Buyer Nephrology 08/28/21 Isaac Min MD [address] [facility] [place] [address] Social Sciences Research Scientist Pulmonary Disease 08/28/21 Team Status: Inactive Member Role Status Dates Dr. Castro Ferrara DO Primary Care Provider, Referrin g Provider Active Deja Jewell DOG CONTROL OFFICER, DOG CONTROL OFFICER-C Attending Provider Active Team Status: Inactive Member [...] Inactive Member Role Status Dates Dr. Castro Josias , DO Primary Care Provider Active Dr. [...] Ferrara , DO Primary Care Provider Active Aniya Box [...] Provider Active Dr. Matt Palafox , DO Attending Provider, Emergency P nelly Active Window Installer Relationship Specialty Start Date End Date Castro Ferrara DO [address] [place] [address] [place] [address] PCP - General Family Medicine 02/03/23 Jeff Grullon MD [address] [facility] [place] [address] Cardiovascular Disease 05/19/13 Karthikeyan Turner MB/CHB [address] [place] [address] Oncologist Hematology 08/28/21 [place] Calderon DO [address] [place] [address] Technical Buyer Nephrology 08/28/21 Isaac Min MD [address] [place] [address] Social Sciences Research Scientist Pulmonary Disease 08/28/21 Team Status: Inactive Member Role Status Dates Dr. Castro Ferrara DO Primary Care Provider, Referrin g Provider Active Esa Mckeon DOG CONTROL OFFICER, DOG CONTROL OFFICER-C Attending Provider Active Team Status: Inactive Member [...] Castro Ferrara DO Primary Care Provider Active NAG DAVIS Attending Provider Active Window Installer Relationship Specialty Start Date End Date Castro Ferrara DO [address] [place] [address] [place] [address] PCP - General Family Medicine 02/03/23 Jeff Grullon MD [address] [facility] [place] [address] Cardiovascular Disease 05/19/13 Karthikeyan Turner MB/CHB [address] [place], [place] [phone] Oncologist Hematology 08/28/21 [place] Calderon DO [address] [place] [address] Technical Buyer Nephrology 08/28/21 Isaac Min MD [address] [place] [address] Social Sciences Research Scientist Pulmonary Disease 08/28/21 Team Status: Inactive Member [...] MERON LAMA Attending Provider, Referring Provider Active Window Installer Relationship Specialty Start Date End Date Castro Ferrara DO [address] [place] [address] PCP - General Family Medicine 02/03/23 Jeff Grullon MD Cardiovascular Disease 05/19/13 Karthikeyan Turner MD [address] [place] [phone] Oncologist Hematology 08/28/21 [place] Calderon DO [address] [place] [phone] Technical Buyer Nephrology 08/28/21 Isaac Min MD [address] [place] [address] Social Sciences Research Scientist Pulmonary Disease 08/28/21 Window Installer Relationship Specialty Start Date End Date Castro Ferrara DO [address] [place] [address] [place] [address] PCP - General Family Medicine 02/03/23 Karthikeyan Turner MD [address] [place] [address] Oncologist Hematology 08/28/21 [place] Calderon DO [address] [place] [address] Technical Buyer Nephrology 08/28/21 Isaac Min MD [address] [place] [address] Social Sciences Research Scientist Pulmonary Disease 08/28/21 Niels Flores MD [address] [place] [address] Cardiovascular Disease 04/02/24 Window Installer Relationship Specialty Start Date End Date Castro FerraraDO [address] [place] [address] [place] [address] PCP - General Family Medicine 02/03/23 Karthikeyan Turner MD [address] [place] [address] Oncologist Hematology 08/28/21 [place] Calderon DO [address] [place] [address] Technical Buyer Nephrology 08/28/21 Isaac Min MD [address] [place] [address] Social Sciences Research Scientist Pulmonary Disease 08/28/21 Niels Flores MD [address] [facility] [place] [address] Cardiovascular Disease 04/02/24 Window Installer Relationship Specialty Start Date End Date Castro Ferrara DO [address] [place] [address] [place] [address] PCP - General Family Medicine 02/03/23 Jeff Gurllon MD [address] [facility] [place] [address] Cardiovascular Disease 05/19/13 Karthikeyan Turner MB/CHB [address] [place] [address] Oncologist Hematology 08/28/21 [place] Calderon DO [address] [place] [address] Technical Buyer Nephrology 08/28/21 Isaac Min MD [address] [place] [address] Social Sciences Research Scientist Pulmonary Disease 08/28/21 Window Installer Relationship Specialty Start Date End Date Castro Ferrara DO [address] [place] [address] PCP - General Family Medicine 02/03/23 Karthikeyan Turner MD [address] [place], [place] [address] Oncologist Hematology 08/28/21 [place] Calderon DO [address] [place] [address] Technical Buyer Nephrology 08/28/21 Isaac Min MD [address] [place] [address] Social Sciences Research Scientist Pulmonary Disease 08/28/21 Niels Flores MD [address] [place] [address] Cardiovascular Disease 04/02/24 Window Installer Relationship Specialty Start [place] [address] [place], [place] [address] [place] [address] [place] [address] PCP - General Family Medicine 02/03/23 Karthikeyan Turner MD [address] [place], [place] [address] Oncologist Hematology 08/28/21 [place] Calderon DO [address] [place] [address] Technical Buyer Nephrology 08/28/21 Isaac Min MD [address] [place] [address] Social Sciences Research Scientist Pulmonary Disease 08/28/21 Niels Flores MD [address] [place] [address] Cardiovascular Disease 04/02/24 Team Status: Active Member [...] Provider Active Start: December 01, 2024 Dr. Catsro Ferrara DO Attending Provider Active Start: December [...] 2025 End: January 28, 2025 Esa Mckeon DOG CONTROL OFFICER, DOG CONTROL OFFICER-C Attending Provider Active S tart: January 28, [...] February 12, 2025 End: February 13, 2025 Window Installer Relationship Specialty Start Date End Date Castro Ferrara DO [address] [place] [address] PCP - General Family Medicine 02/03/23 Karthikeyan Turner MD [address] [place] [address] Oncologist Hematology 08/28/21 [place] Calderon DO [address] [place] [address] Technical Buyer Nephrology 08/28/21 Isaac Min MD [address] [place] [address] Social Sciences Research Scientist Pulmonary Disease 08/28/21 Niels Flores MD [address] [place] [address] Cardiovascular Disease 04/02/24 Window Installer Relationship Specialty Start Date End Date Castro Ferrara DO [address] [place] [address] PCP - General Family Medicine 02/03/23 Karthikeyan Turner MD [address] [place] [address] Oncologist Hematology 08/28/21 [place] Calderon DO [address] [place] [address] Technical Buyer Nephrology 08/28/21 Isaac Min MD [address] [place] [address] Social Sciences Research Scientist Pulmonary Disease 08/28/21 Niels Flores MD [address] [place] [address] Cardiovascular Disease 04/02/24 Team Status: Inactive Member [...] 2025 End: March 23, 2025 Vaishnavi Bob , DOG CONTROL OFFICER-C Referring Provider Active S tart: March 23, 2025 End: March 23, 2025 Team Status: Inactive Member Role Status Dates Dr. Castro Ferrara DO Primary Care Provider Active Start: March 25, 2025 End: March 25, 2025 Dr. Castro Ferrara DO Referring Provider Active Start: March 25, 2025 End: March 25, 2025 Sue Roberts DOG CONTROL OFFICER, DOG CONTROL OFFICER-C Attending Provider Active Start: March 25, 2025 [...] End: April 08, 2025 Sue Roberts NP, DOG CONTROL OFFICER-C Attending Provider Active Start: April 08, 2025 End: April 08, 2025 Sue Roberts NP, DOG CONTROL OFFICER-C Referring Provider Active Start: April 08, 2025 End: April 08, 2025 AMY Caro Other Provider Active Start : April 08, 2025 End: April 08, 2025 Window Installer Relationship Specialty Start Date End Date Castro Ferrara DO [address] [place] [address] PCP - General Family Medicine 02/03/23 Karthikeyan Turner MD [address] [place] [address] Oncologist Hematology 08/28/21 [place] Calderon DO [address] [place], [place] [address] Technical Buyer Nephrology 08/28/21 Isaac Min MD [address] [place] [address] Social Sciences Research Scientist Pulmonary Disease 08/28/21 Niels Flores MD [address] [place] [address] Cardiovascular Disease 04/02/24 Team Status: Active Member [...] 2025 End: April 29, 2025 Dr. Castro Ferraar DO Attending Provider Active Start: April 29, 2025 End: April 29, 2025 Sue Roberts DOG CONTROL OFFICER, DOG CONTROL OFFICER-C Referring Provider Active Start: April 29, 2025 [...] 2025 End: January 28, 2025 Esa Mckeon DOG CONTROL OFFICER, DOG CONTROL OFFICER-C Attending Provider Active S tart: January 28, [...] 2025 End: March 23, 2025 Vaishnavi Bob DOG CONTROL OFFICER-C Attending Provider Active S tart: March 23, 2025 End: March 23, 2025 Vaishnavi Bob DOG CONTROL OFFICER-C Referring Provider Active S tart: March 23, 2025 End: March 23, 2025 Team Status: Inactive Member Role/Relationship Status Dates Dr. Castro Ferrara DO Primary Care Provider Active Start: March 25, 2025 End: March 25, 2025 Dr. Castro Ferrara DO Referring Provider Active Start: March 25, 2025 End: March 25, 2025 Sue Roberts DOG CONTROL OFFICER, DOG CONTROL OFFICER-C Attending Provider Active Start: March 25, 2025 [...] 2025 End: April 08, 2025 Sue Roberts DOG CONTROL OFFICER, DOG CONTROL OFFICER-C Attending Provider Active Start: April 08, 2025 End: April 08, 2025 Sue Roberts DOG CONTROL OFFICER, DOG CONTROL OFFICER-C Referring Provider Active Start: April 08, 2025 End: April 08, 2025 Vaishnavi Bob DOG CONTROL OFFICER-C Other Provider Active Start : April 08, 2025 End: April 08, 2025 Team Status: Active Member Role/Relationship Status Dates Dr. Castro Ferrara DO Primary Care Provider Active Start: April 08, 2025 Dr. Jd Weeks DO Attending Provider Active S tart: April 08, 2025 Sue Roberts DOG CONTROL OFFICER, DOG CONTROL OFFICER-C Referring Provider Active Start: April 08, 2025 [...] 2025 End: April 29, 2025 Sue Roberts DOG CONTROL OFFICER, DOG CONTROL OFFICER-C Referring Provider Active Start: April 29, 2025 [...] 2025 End: March 23, 2025 RADHA CaroC Attending Provider Active S tart: March 23, [...] 2025 End: March 25, 2025 Sue Roberts NP DOG CONTROL OFFICER-C Attending Provider Active Start: March 25, 2025 [...] 2025 End: April 08, 2025 Sue Roberts DOG CONTROL OFFICER, DOG CONTROL OFFICER-C Attending Provider Active Start: April 08, 2025 End: April 08, 2025 Sue Roberts DOG CONTROL OFFICER, DOG CONTROL OFFICER-C Referring Provider Active Start: April 08, 2025 End: April 08, 2025 Vaishnavi Bob DOG CONTROL OFFICER-C Other Provider Active Start : April 08, 2025 End: April 08, 2025 Team Status: Active Member Role/Relationship Status Dates Dr. Castro Ferrara DO Primary Care Provider Active Start: April 08, 2025 Dr. Jd Weeks DO Attending Provider Active S tart: April 08, 2025 Sue Roberts DOG CONTROL OFFICER, DOG CONTROL OFFICER-C Referring Provider Active Start: April 08, 2025 [...] Inactive Member Role/Relationship Status Dates Dr. Castro Ferarra DO Primary Care Provider Active Start: April 29, 2025 End: April 29, 2025 Dr. Castro Ferrara DO Attending Provider Active Start: April 29, 2025 End: April 29, 2025 Sue Roberts DOG CONTROL OFFICER, DOG CONTROL OFFICER-C Referring Provider Active Start: April 29, 2025 [...] Active Start: June 08, 2025 Dr. Castro eFrrara DO Attending Provider Active Start: June 08, [...] June 14, 2025 Dr. Pako Mendoza DO Attending Provider Active Start: June 14, [...] June 23, 2025 End: June 24, 2025 Window Installer Relationship Specialty Start Date End Date Ian Kaylin Lefty PCP - General Family Medicine 11/08/10 Jeff Grullon MD [address] [place] [address] Cardiology 07/30/20 Window Installer Relationship Specialty Start Date End Date Kaylin Sosa PCP - General Family Medicine 11/08/10 Jeff Grullon MD [address] [place] [address] Cardiology 07/30/20 Team Status: Active Member Role/Relationship Status Dates [...] 2025 End: April 08, 2025 Sue Roberts DOG CONTROL OFFICER, DOG CONTROL OFFICER-C Attending Provider Active Start: April 08, 2025 End: April 08, 2025 Sue Roberts DOG CONTROL OFFICER, DOG CONTROL OFFICER-C Referring Provider Active Start: April 08, 2025 End: April 08, 2025 Vaishnavi Bob DOG CONTROL OFFICER-C Other Provider Active Start : April 08, 2025 End: April 08, 2025 Team Status: Active Member Role/Relationship Status Dates Dr. Castro Ferrara DO Primary Care Provider Active Start: April 08, 2025 Dr. Jd Weeks DO Attending Provider Active S tart: April 08, 2025 Sue Roberts DOG CONTROL OFFICER, DOG CONTROL OFFICER-C Referring Provider Active Start: April 08, 2025 [...] 2025 End: April 29, 2025 Sue Roberts DOG CONTROL OFFICER, DOG CONTROL OFFICER-C Referring Provider Active Start: April 29, 2025 [...] Active Member Role/Relationship Status Dates Dr. Castro Ferarra DO Primary Care Provider Active Start: June 10, 2025 Dr. Castro Ferrara DO Attending Provider Active Start: June 10, 2025 Team Status: Inactive Member Role/Relationship Status Dates Dr. Castro Ferrara DO Primary Care Provider Active Start: June 11, 2025 End: June 11, 2025 Jane Torres PA PA Attending Provider Active Start: June 11, 2025 End: June 11, 2025 Jane Torres PA, PA Referring Provider Active Start: June 11, 2025 End: June 11, 2025 Team Status: Inactive Member Role/Relationship Status Dates Dr. Castro Ferrara DO Primary Care Provider Active Start: June 14, 2025 End: June 14, 2025 Dr. Pako Mendoza DO Attending Provider Active Start: June 14, [...] June 24, 2025 Dr. Amy Viramontes DO Attending Provider Active S tart: June 23, 2025 End: June 24, 2025 Dr. Amy Viramontes DO Emergency Provider Active S tart: June 23, 2025 End: June 24, 2025 Team Status: Active Member Role/Relationship Status Dates Dr. Castro Ferrara DO Primary Care Provider Active Start: July 16, 2025 Constantino QUIÑONES MD Attending Provider Active Start: July 16, 2025 Team Status: Inactive Member Role/Relationship Status Dates Dr. Castro Ferrara DO Primary Care Provider Active Start: July 16, 2025 End: July 16, 2025 Silvina Parmar NP, DOG CONTROL OFFICER-C Attending Provider Active Start: July 16, 2025 End: July 16, 2025 Team Status: Active Member Role/Relationship Status Dates Dr. Castro Ferrara DO Primary Care Provider Active Start: July 17, 2025 Constantino QUIÑONES MD Attending Provider Active Start: July 17, 2025 Team Status: Active Member Role/Relationship Status Dates Dr. Castro Ferrara DO Primary Care Provider Active Start: July 20, 2025 Constantino QUIÑONES MD Attending Provider Active Start: July 20, 2025 Team Status: Active Member Role/Relationship Status Dates Dr. Castro Ferrara DO Primary Care Provider Active Start: July 21, 2025 Constantino QUIÑONES MD Attending Provider Active Start: July 21, 2025 Team Status: Active Member Role/Relationship Status Dates Dr. Castro Ferrara DO Primary Care Provider Active Start: July 23, 2025 Constantino QUIÑONES MD Attending Provider Active Start: July 23, 2025 Window Installer Relationship Specialty Start Date End Date Kaylin Sosa PCP - General Family Medicine 11/08/10 Jeff Grullon MD [address] [address] Cardiology 07/30/20 Window Installer Relationship Specialty Start Date End Date Kaylin Sosa PCP - General Family Medicine 11/08/10 Jeff Grullon MD [address] [place] [address] Cardiology 07/30/20 Continuous Active and Recently Administ [...] 1,500 mg, Intravenous, Administer over 1 Hours, 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 Vancomycin is preferred agent for device implants, based on national, community and local ([facility]) MRSA rates., Pre-op/Pre-Proc 0802 ($$New Bag$$ - Provider: Enrico Bateman RN) No Frequency Medication Order 03/31/2024 04/01/2024 04/02/2024 Sodium chloride 0.9% IV solution 1 dose, Starting on Sun04/02/24 at 0738, Until Sun04/02/24 at 1530, Created by cabinet override [id number] (Canceled Entry - Provider: System Discharge - [...] the dose for 2-3 soft bowel movements/day 1745 (Given - Provider: Farrah Schafer RN) [...] 151 (Given - Provider: Farrah Schafer RN) 08 (Given - Provider: Katherine Enciso RN) sevelamer (RENVELA) tablet 800 mg 800 mg, Oral, 3 TIMES DAILY WITH MEALS, First dose on Sun12/18/24 at 1700, Until Discontinued, Swallow whole; do [...] (1 capsule), Oral, DAILY, First dose on Sun12/18/24 at 1430, Until Discontinued 1513 (Given - [...] 2122 (Given - Provider: Shana Rees, RN) calcium acetate - Phos Binder (PHOSLO) [...] Until Discontinued 808 (Given - Provider: Sally Huff RN) Cyclobenzaprine (FLEXERIL) tablet 10 mg 10 mg, Oral, EVERY 12 HOURS, First dose on Sun02/13/25 at 1315, Until Discontinued 0848 (Given - Provider: Stella Swenson RN)2030 (Given - Provider: Che Cabrera RN) 0808 (Given - Provider: Sally Huff, GIO)2122 (Given - Provider: Shana Rees RN) 08 [...] Rees RN) 08 (Given - Provider: Adeel Ramon, RN) Fluconazole (DIFLUCAN) tablet 200 mg 200 mg, Oral, DAILY AT BEDTIME, First dose (after last modification) on Sun02/15/25 at 2100, Until Discontinued, Swallow tablet whole; do not crush, split or chew. Contact pharmacy if alternate route or dose is needed. 2030 (Given - Provider: Che Cabrera RN) 2122 (Given - Provider: Shana Rese RN) Lactulose (CHRONULAC) oral solution 10 g 10 g, Oral, 2 TIMES DAILY, First dose (after last modification) on 02/15/25 at 0900, Until Discontinued 0848 (Given - Provider: Stella Swenson RN)1705 (Given - Provider: Stella Swenson RN) 0848 (Given - Provider: Sally Huff, GIO)1757 (Given - Provider: Sally Huff, GIO) 0810 [...] 0808 (Given - Provider: Sally Huff RN) 08 (Given - Provider: Adeel Ramon, IGO) Pantoprazole (PROTONIX) tablet DR 40 mg 40 mg, Oral, 2 TIMES DAILY, First dose on Sun02/18/25 at 1700, Until Discontinued, Swallow whole; do not crush or chew., Indications: Continuation of Home Therapy, GI Bleed 0849 (Given - Provider: Stella Swenson RN)1706 (Given - Provider: Stella Swenson RN) 0808 (Given - Provider: Sally Huff RN)175 (Given - Provider: Sally Huff RN) 08 (Given - Provider: Adeel Ramon RN)1700 (Canceled [...] if alternate route or dose is needed. 1758 (Given - Provider: Sally Huff RN) Warfarin (COUMADIN) tablet 3 mg (CANCELED) 3 mg, Oral, DAILY EARLY EVENING, First dose (after last modification) on Sun03/04/25 at 1800, Until Discontinued, Swallow tablet whole; do not crush, split or chew. Contact pharmacy if alternate route or dose is needed. 1705 (Given - Provider: Stella Swenson RN) Continuous [...] Until Discontinued 808 (Given - Provider: Sally Huff RN) Cyclobenzaprine (FLEXERIL) tablet 10 mg 10 mg, Oral, EVERY 12 HOURS, First dose on Sun02/13/25 at 1315, Until Discontinued 0848 (Given - Provider: Stella Swenson RN)2030 (Given - Provider: Che Cabrera RN) 807 (Given - Provider: Sally Huff RN)2122 (Given - Provider: Shana Rees, GIO) 08 (Given - Provider: Adeel Ramon RN) [...] RN)2030 (Given - Provider: Che Cabrera, RN) 08 (Given - Provider: Sally Huff RN)2122 (Given - Provider: Shana Rees RN) 08 (Given - Provider: Adeel Ramon, GIO) Fluconazole [...] 0525 (Given - Provider: Chuck Syed RN) 06 (Given - Provider: Che Cabrera RN) 0558 [...] if alternate route or dose is needed. 1705 (Given - Provider: Stella Swenson RN) Continuous [...] NEEDED, Starting on 02/14/25 at 0630, Until 03/06/25 at 1730, Shortness of Breath, Wait at [...] ONLY;Hemodialysis Inactive Right Breast - Upper 04/02/2024 Arterial Line (Adult, Obstetrics) 05/08/16 1716 Right [...] any alcohol or drug abuse patient.[facility] the event this information is protected by the Federal Confidentiality of Alcohol and Drug Abuse Patient Records regulations: The Federal rules restrict any use of the information to criminally investigate or prosecute any alcohol or drug abuse patient.[facility] HospitalIn the event this information is protected by the Federal Confidentiality of Alcohol and Drug Abuse Patient Records regulations: The Federal rules restrict any use of the information to criminally investigate or prosecute any alcohol or drug abuse patient.[facility] HospitalIn the event this information is protected by the Federal Confidentiality of Alcohol and Drug Abuse Patient Records regulations: The Federal rules restrict any use of the information to criminally investigate or prosecute any alcohol or drug abuse patient.[facility] Hospital[facility] the event this information is protected by the Federal Confidentiality of Alcohol and Drug Abuse Patient Records regulations: The Federal rules restrict any use of the information to criminally investigate or prosecute any alcohol or drug abuse patient.[facility] HospitalIn the event this information is protected by the Federal Confidentiality of Alcohol and Drug Abuse Patient Records regulations: The Federal rules restrict any use of the information to criminally investigate or prosecute any alcohol or drug abuse patient.[facility] FOR RECORDS PERTAINING TO PATIENTS WHO [...] BE BASED ON THE PRIMARY CLINICAL RECORDS. [facility] [employer] [facility]. provides no warranty or guarantee of the accuracy or completeness of information in this document.
--- NOTE | 2025-08-09 08:39 | CON.PCM.CA_ITS ---
Assessment & Plan Assessment/Plan (1) Closed intertrochanteric fracture of right femur: PLAN: He has suffered a right hip intertrochanteric fracture. This is deemed at this time to be a fairly emergent nature. Based on his exam and his risk factors it does not appear that any further testing will change the outcome. He is at higher risk. Fortunately his INR level is low at this time. I will therefore suggest that we proceed with surgery and immediately postop to start him on anticoagulation with warfarin and then subsequently with heparin without a bolus dose after 24 to 48 hours depending on hemostasis. It may be prudent to admit him postoperatively to the intensive care unit. (2) Benign essential hypertension: PLAN: His blood pressure appears to be under good control at this time I would not recommend that we make any changes. (3) History of mechanical aortic valve replacement: PLAN: He does have a history of mechanical aortic valve replacement on anticoagulation. His INR however is subtherapeutic at this time. His warfarin should be resumed postoperatively and he will need bridging with heparin. Target INR is 2.5-3.5. (4) History of mitral valve repair: PLAN: He does have a history of mitral valve repair and his mitral valve appears to be stable at this particular time. (5) Biventricular cardiac pacemaker in situ: PLAN: Is status post biventricular pacemaker implantation. His last pacemaker interrogation appeared to be stable. (6) HLD (hyperlipidemia): QUALIFIERS: Hyperlipidemia type: mixed hyperlipidemia Qualified Code(s): E78.2 - Mixed hyperlipidemia PLAN: He will continue with risk factor modification. HPI Consult Data Date of Consult: 08/09/25 HPI Narrative HPI Narrative: CHRISTIAN RICHMOND, is a 75 M who presents to the emergency room after sustaining a right hip fracture following a mechanical fall. Cardiology was called by phone call to see whether the patient will be appropriate for surgery over here in this hospital. At this particular time the patient has no complaints. He does have a history of aortic valve replacement with the most recent being a mechanical aortic valve prosthesis with a 21 mm [place] valve, a mitral valve repair with a 28 mm Brady, atrial fibrillation flutter, status post AV chiquita ablation, status post permanent pacemaker implantation with subsequent upgrade to a biventricular pacemaker. He also has a history of hypertension, hyperlipidemia, chronic antibiotic therapy, and dialysis. He is currently a resident of the retirement. His last echocardiographic evaluation was in February of this year at [facility] demonstrating ejection fraction of 55 to 60% stable mitral valve repair, stable aortic valve prosthesis, and pulmonary systolic pressure of 55 mmHg. At his last office visit he denied any chest pain or shortness of breath or paroxysmal nocturnal dyspnea or pedal edema. He is EKG in the emergency room demonstrates ventricular pacing. 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 History of rheumatic fever as a child COVID-19 Infectious endocarditis Non-ST elevation (NSTEMI) myocardial infarction CAD (coronary artery disease) History of pacemaker Coagulopathy Airway intubation performed without difficulty Cardiopulmonary arrest with successful resuscitation Hypothyroidism (acquired) Abnormal results of thyroid function studies Hyperthyroidism MIA (obstructive sleep apnea) Dyspnea Non-rheumatic mitral regurgitation Non-rheumatic mitral valve stenosis Iron deficiency History of diffuse large B-cell lymphoma Anemia in chronic kidney disease Pure hypercholesterolemia Biventricular cardiac pacemaker in situ (~05/26/16) Encounter for long-term (current) use of high-risk medication 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, 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 TIA (transient ischemic attack) (~11/19/15) History of DVT (deep vein thrombosis) Gout Paroxysmal ventricular tachycardia Atrial flutter Cardiomyopathy in disease classified elsewhere MRSA (methicillin resistant Staphylococcus aureus) infection History of non-Hodgkin's lymphoma Endocarditis due to Staphylococcus Benign essential hypertension Home Medications Medication Instructions Recorded Last Taken Type levothyroxine 75 mcg tablet 75 mcg PO DAILY thyroid 12/16/24 History vitamin B complex-vitamin C-folic 1 tab PO DAILY vitam in 01/10/22 12/16/24 History acid 0.8 mg tablet (Nephro-Baltazar) doxycycline hyclate 100 mg tablet 100 mg PO BID infect ion 11/27/22 12/16/24 History fluconazole 200 mg tablet 200 mg PO DAILY 06/11/23 History albuterol sulfate 90 mcg/actuation 2 puff inhalation Q 4-6H PRN 03/19/24 Unknown History aerosol inhaler shortness of breath or wheez ing cyclobenzaprine 10 mg tablet 10 mg PO BID 05/28/24 History pantoprazole 40 mg tablet,delayed 40 mg PO QAM #90 tab s 12/01/24 12/16/24 Rx release warfarin 1 mg tablet (Jantoven) 2 mg PO .satsun 12/16/24 History warfarin 2 mg tablet 1 mg PO .-sun12/16/2411/20 History amoxicillin 500 mg capsule 2,000 mg PO DAILY PRN DENTA L 12/17/24 Unknown History TREATMENT triamcinolone acetonide 0.1 % 1 applic topical BID PRN SKIN 12/17/24 Unknown History 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 lactulose 10 gram/15 mL oral 20 ml PO QDAY 01/28/25 Un known History solution (Constulose) metoclopramide HCl 5 mg tablet 2.5 mg (1/2 x 5 mg) PO QAC #50 tabs 03/17/25 Unknown Rx midodrine 10 mg tablet See Rx Instructions PO .COMP STU To 03/25/25 Unknown History keep BP up during dialysis alprazolam 1 mg tablet (Xanax) 1 mg PO QHS Sleep 05/27 Unknown History sucroferric oxyhydroxide 500 mg 500 mg PO TID To reduc e phosphorus 05/27/25 Unknown History chewable tablet (Velphoro) in blood amino acids-protein hydrolysate 16 30 ml PO DAILY 04/12 Unknown History gram-100 kcal/30 mL oral liquid (Liquacel) docusate sodium 100 mg capsule 100 mg PO DAILY 5 Unknown History (Colace) docusate sodium 100 mg capsule 200 mg PO QHS 06/23/25 Unknown History (Colace) oxycodone 5 mg tablet 5 mg PO Q6H PRN PRN pain Unknown History Allergy/AdvReac Type Severity Reaction Status Date / Time No Known Allergies Allergy Verified 08/09/25 03:22 Family History Father CAD (coronary artery disease) CABG Brother CAD (coronary artery disease) CABG Mother Diabetes Sister Breast cancer Diabetes Sister Cancer breast Diabetes Surgical History History of esophagogastroduodenoscopy (EGD) History of colonoscopy S/P arteriovenous (AV) fistula repair History of mechanical aortic valve replacement (~08/24/03) History of heart valve replacement with mechanical valve History of atrioventricular chiquita ablation History of heart valve replacement with mechanical valve History of evacuation of hematoma History of cholecystectomy History of appendectomy dual chamber pacemaker implantation (~10/2010) History of aortic valve replacement (~08/2003) History of mitral valve repair (~08/24/03) History of mechanical aortic valve replacement (~1986) Social History household members: spouse housing: house current occupational status: retired current occupational exposures/hazards: No history of recent travel: No Smoking Status: Never smoker alcohol intake: never substance use type: does not use caffeine: No what type of physical activity do you participate in: weight training and other details: Nustep frequency: 3-4 times per week duration: 45-60 minutes/day seatbelt use: always do you feel safe at home: Yes ROS Constitutional Constitutional: Denies fever(s) or weight loss Eyes Eyes: Reports systems reviewed and no addt'l complaints, except as documented ENT HEENT: Reports systems reviewed and no addt'l complaints, except as documented Cardiovascular Cardiovascular: Denies chest pain at rest, chest pain with activity, dyspnea at rest, dyspnea on exertion, edema, palpitations or paroxysmal nocturnal dyspnea Respiratory/Chest Respiratory/Chest: Denies dyspnea on exertion, productive cough, shortness of breath at rest or shortness of breath with exertion Gastrointestinal Gastrointestinal: Denies change in bowel habits, nausea, vomiting or weight changes Genitourinary Genitourinary: Denies difficulty urinating Musculoskeletal Musculoskeletal: Denies joint stiffness or muscle weakness Integumentary Integumentary: Denies lesions Neurologic Neurologic: Denies dizziness or syncope Psychiatric Psychiatric: Denies anxiety Endocrine Endocrinology: Denies excessive sweating or fatigue Hematologic/Lymphatic Hematologic/Lymphatic: Denies anemia Allergic/Immunologic Allergic/Immunologic: Denies seasonal rhinorrhea Physical Exam Const alert, oriented x3 and no apparent distress General Appearance: cooperative HEENT hearing grossly normal bilaterally Head and Scalp: atraumatic Eyes EOMs intact bilaterally Neck General: normal visual inspection Chest inspection of chest normal and palpation of chest normal Resp normal respiratory effort Auscultation: clear to auscultation bilaterally Cardio regular rate, regular rhythm, S1 normal heart sound and S2 normal heart sound Jugular Venous Distention: JVD Heart Sounds: prosthetic sounds crisp prosthetic S2 GI normal to inspection, nondistended, normoactive bowel sounds Extremity normal capillary refill and no pedal edema Peripheral Pulses: Yes pulses 2+ throughout and femoral pulses present Skin no rashes or lesions noted Neuro oriented x3 and CN's II-XII intact bilaterally Psych Appearance: grossly normal and appropriate Objective Data Vital Signs: Vital Signs Temp Pulse Resp BP Pulse Ox O2 Del Method O2 Flow Rate 97.9 F 71 18 109/47 L 97 Room Air 2 08/09/25 08:24 08/09/25 08:24 08/09/25 08:24 08/09/25 08:24 08/09/25 08:24 08/09/25 08:00 08/09/25 06:17 Oxygen Flow Rate (L/min) 2 Oxygen Delivery Method Room Air Weight: 162 lb 11.218 oz Body Mass Index (BMI) 25.4 Lab / Micro Data 08/09/25 06:44 08/09/25 06:44 Labs: Laboratory Results - last 24 hr 08/09/25 06:44: WBC 14.2 H, RBC 3.63 L, Hgb 11.1 L, Hct 35.0 L, MCV 96.4 H, MCH 30.6, MCHC 31.7 L, RDW Std Deviation 61.9 H, RDW Coeff of Jennifer 18.0 H, Plt Count 184, MPV 10.3, Immature Gran % (Auto) 0.600, Neut % (Auto) 80.9 H, Lymph % (Auto) 7.7 L, [place] % (Auto) 6.0, Eos % (Auto) 4.3, Baso % (Auto) 0.5, Absolute Neuts (auto) 11.5 H, Absolute Lymphs (auto) 1.10, Nucleated RBC % 0, PT 16.5 H, INR 1.3, APTT 34.3, Sodium 134, Potassium 4.1, Chloride 95 L, Carbon Dioxide 24.9, Anion Gap 14, BUN 25 H, Creatinine 4.09 H, Estim Creat Clear Calc 14.37 L, Est GFR (MDRD) Non-Af 14 L, BUN/Creatinine Ratio 6.2 L, Glucose 99, Calcium 9.0, Phosphorus 2.5 L Cardiology Labs/Tests 08/09/25 06:44: WBC 14.2 H, RBC 3.63 L, Hgb 11.1 L, Hct 35.0 L, MCV 96.4 H, MCH 30.6, MCHC 31.7 L, Plt Count 184, MPV 10.3, Immature Gran % (Auto) 0.600, Neut % (Auto) 80.9 H, Lymph % (Auto) 7.7 L, [place] % (Auto) 6.0, Eos % (Auto) 4.3, Baso % (Auto) 0.5, Absolute Neuts (auto) 11.5 H, Nucleated RBC % 0, PT 16.5 H, INR 1.3, APTT 34.3, Sodium 134, Potassium 4.1, Chloride 95 L, Carbon Dioxide 24.9, Anion Gap 14, BUN 25 H, Creatinine 4.09 H, Est GFR (MDRD) Non-Af 14 L, BUN/Creatinine Ratio 6.2 L, Glucose 99, Calcium 9.0, Phosphorus 2.5 L Rhythm: EKG: ECHO: Stress Test: Cardiac Cath: PCI: CT Surgery: Holter monitor: EPS: PPM: CXR: Chest CT Scan: Radiography Diagnostic Testing: Radiology Impression Brain CT 08/09/25 03:39 IMPRESSION: 1. No intracranial hemorrhage. No mass effect or midline shift. 2. 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 Reading [facility] Femur X-Ray 08/09/25 03:39 IMPRESSION: Acute nondisplaced intratrochanteric fracture. Reading Location: [facility] Pelvis X-Ray 08/09/25 03:39 IMPRESSION: Acute nondisplaced right intertrochanteric femoral fracture. Reading Location: [id number] Chest X-Ray 08/09/25 06:38 IMPRESSION: Limited AP radiographs of the chest. Opacification of the right lower lung chavez may reflect underlying airway disease. Left pleural effusion. Reading Location: [id number] Risk Score for UA/STEMI Assesmment (YES = 1) Risk Stratification Applicable: No
--- NOTE | 2025-08-09 09:42 | PCM.HP.STD ---
HPI - General General Date of Admission: 08/09/25 Date of Service: 08/09/25 Chief Complaint: Hip fracture HPI Narrative CHRISTIAN RICHMOND, is a 75 M with a past medical history as outlined who presents from his [facility] [place] on 08/09/2025 with a complaint of mechanical fall. Patient apparently rolled out of his bed and landed on his right side. He had subsequent pain in his right hip and leg so he was brought into the ED. I could not obtain much of a history as patient was quite confused and lethargic at time of my review. History was mainly obtained from the ED physician. Vitals in the ED at time of review where temperature of 97.9 Fahrenheit, blood pressure of 109/47, respiratory rate of 18 and pulse ox of 96% on room air. CBC showed hemoglobin of 11.1 with WBC of 14.2 and platelets of 184. INR was 1.3. Chemistry showed sodium of 134 with potassium of 4.1 and bicarb of 24.9. Creatinine was 4.09. CT brain showed no acute intracranial hemorrhage and showed chronic involutional and ischemic gliotic white matter changes. Femur x-ray showed acute nondisplaced intratrochanteric fracture. Chest x-ray showed opacification of the right lower lung chavez which may reflect underlying airway disease and left pleural effusion which was chronic. Initial concern was the patient was too high risk for admission here in light of his history of aortic and mitral valve replacement and extensive cardiac disease. The ED doctor spoke to orthopedic surgery who are comfortable doing the procedure here. ED doctor also spoke to anesthesia who stated that they felt patient could have a surgery here but he would be admitted to the ICU afterwards. ED doctor also spoke to assistant women's tennis coach who agreed to consult on the patient for pre op cardiac risk stratification. Patient was therefore admitted to be managed for right intertrochanteric hip fracture due to mechanical fall. [facility] Medical History (Updated 08/09/25 @ 11:34 by Cheyanne Lowery) Pleural effusion associated with hepatic disorder ABLA (acute blood loss anemia) Anemia requiring transfusions Atherosclerotic heart disease of [place] coronary artery without angina pectoris Cirrhosis HLD (hyperlipidemia) Other specified cardiac dysrhythmias ESRD (end stage renal disease) on dialysis CKD stage G5/A1, GFR <15 and albumin creatinine ratio <30 mg/g Sepsis Vitamin D insufficiency Polyneuropathy Mild cognitive impairment Epilepsy [facility] (current) use of anticoagulants History of rheumatic fever as a child COVID-19 Infectious endocarditis Non-ST elevation (NSTEMI) myocardial infarction CAD (coronary artery disease) History of pacemaker Coagulopathy Airway intubation performed without difficulty Cardiopulmonary arrest with successful resuscitation Hypothyroidism (acquired) Abnormal results of thyroid function studies Hyperthyroidism MIA (obstructive sleep apnea) Dyspnea Non-rheumatic mitral regurgitation Non-rheumatic mitral valve stenosis Iron deficiency History of diffuse large B-cell lymphoma Anemia in chronic kidney disease Pure hypercholesterolemia Biventricular cardiac pacemaker in situ (~05/26/16) Encounter for long-term (current) use of high-risk medication 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, 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 TIA (transient ischemic attack) (~11/19/15) History of DVT (deep vein thrombosis) Gout Paroxysmal ventricular tachycardia Atrial flutter Cardiomyopathy in disease classified elsewhere MRSA (methicillin resistant Staphylococcus aureus) infection (Unknown) History of non-Hodgkin's lymphoma Endocarditis due to Staphylococcus (~03/2025) Benign essential hypertension Home Medications Medication Instructions Recorded Last Taken Type levothyroxine 75 mcg tablet 75 mcg PO DAILY thyroid 08/24/21 12/16/24 History vitamin B complex-vitamin C-folic 1 tab PO DAILY vitamin 01/10/22 12/16/24 History acid 0.8 mg tablet (Nephro-Baltazar) doxycycline hyclate 100 mg tablet 100 mg PO BID infection 11/27/22 12/16/24 History fluconazole 200 mg tablet 200 mg PO DAILY 06/11/23 12/16/24 History albuterol sulfate 90 mcg/actuation 2 puff inhalation Q4-6H PRN 03/19/24 Unknown History aerosol inhaler shortness of breath or wheezing cyclobenzaprine 10 mg tablet 10 mg PO BID 05/28/24 12/16/24 History pantoprazole 40 mg tablet,delayed 40 mg PO QAM #90 tabs 12/01/24 12/16/24 Rx release warfarin 1 mg tablet (Jantoven) 2 mg PO .satsun 12/16/24 12/16/24 History warfarin 2 mg tablet 1 mg PO .-sun12/16/24 12/15/24 History amoxicillin 500 mg capsule 2,000 mg PO DAILY PRN DENTAL 12/17/24 Unknown History TREATMENT triamcinolone acetonide 0.1 % 1 applic topical BID PRN SKIN 12/17/24 Unknown History 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 lactulose 10 gram/15 mL oral 20 ml PO QDAY 01/28/25 Unknown History solution (Constulose) metoclopramide HCl 5 mg tablet 2.5 mg (1/2 x 5 mg) PO QAC #50 tabs 03/17/25 Unknown Rx midodrine 10 mg tablet See Rx Instructions PO .COMPLEX To 03/25/25 Unknown History keep BP up during dialysis alprazolam 1 mg tablet (Xanax) 1 mg PO QHS Sleep 05/27/25 Unknown History sucroferric oxyhydroxide 500 mg 500 mg PO TID To reduce phosphorus 05/27/25 Unknown History chewable tablet (Velphoro) in blood amino acids-protein hydrolysate 16 30 ml PO DAILY 06/23/25 Unknown History gram-100 kcal/30 mL oral liquid (Liquacel) docusate sodium 100 mg capsule 100 mg PO DAILY 06/23/25 Unknown History (Colace) docusate sodium 100 mg capsule 200 mg PO QHS 06/23/25 Unknown History (Colace) oxycodone 5 mg tablet 5 mg PO Q6H PRN PRN pain 08/09/25 Unknown History Allergy/AdvReac Type Severity Reaction Status Date / Time No Known Allergies Allergy Verified 08/09/25 03:22 Family History Father CAD (coronary artery disease) CABG Brother CAD (coronary artery disease) CABG Mother Diabetes Sister Breast cancer Diabetes Sister Cancer breast Diabetes Surgical History History of esophagogastroduodenoscopy (EGD) History of colonoscopy S/P arteriovenous (AV) fistula repair History of mechanical aortic valve replacement (~08/24/03) History of heart valve replacement with mechanical valve History of atrioventricular chiquita ablation History of heart valve replacement with mechanical valve History of evacuation of hematoma History of cholecystectomy History of appendectomy dual chamber pacemaker implantation (~10/2010) History of aortic valve replacement (~08/2003) History of mitral valve repair (~08/24/03) History of mechanical aortic valve replacement (~1986) Social History household members: spouse housing: house current occupational status: retired current occupational exposures/hazards: No history of recent travel: No Smoking Status: Never smoker alcohol intake: never substance use type: does not use caffeine: No what type of physical activity do you participate in: weight training and other details: Nustep frequency: 3-4 times per week duration: 45-60 minutes/day seatbelt use: always do you feel safe at home: Yes ROS Review of Systems ROS Unobtainable: due to encephalopathy Vital Signs Vital Signs Vital Signs: 08/09/25 03:22 08/09/25 03:22 08/09/25 04:15 Temperature 97.4 F L Temperature Source Oral Pulse Rate 84 Respiratory Rate 16 Respiratory Effort Normal Respiratory Depth Normal Respiratory Pattern Normal Blood Pressure 127/58 H Blood Pressure Mean 81 Pulse Ox 93 86 Oxygen Delivery Method Room Air Room Air Room Air Oxygen Flow Rate (L/min) 08/09/25 04:16 08/09/25 06:17 08/09/25 08:00 Temperature Temperature Source Pulse Rate 72 70 Respiratory Rate 16 18 Respiratory Effort Respiratory Depth Respiratory Pattern Blood Pressure 126/50 H 109/47 L Blood Pressure Mean 75 67 Pulse Ox 99 95 96 Oxygen Delivery Method Nasal Cannula Nasal Cannula Room Air Oxygen Flow Rate (L/min) 2 2 08/09/25 08:24 Temperature 97.9 F Temperature Source Pulse Rate 71 Respiratory Rate 18 Respiratory Effort Respiratory Depth Respiratory Pattern Blood Pressure 109/47 L Blood Pressure Mean 67 Pulse Ox 97 Oxygen Delivery Method Oxygen Flow Rate (L/min) Weight Weight: 162 lb 11.218 oz Body Mass Index (BMI) 25.4 Physical Exam Const Constitutional Narrative: lethargic, confused HEENT normocephalic and head/scalp atraumatic Eyes EOMs intact bilaterally and conjunctivae normal Neck supple and no JVD Cardio Cardio Narrative: mildly diminished breath sounds bibasally, no wheezes or crackles. On room air. GI soft to palpation and non-tender Extremity Extremity Narrative: RLE shortened, externally rotated. Neuro Neuro Narrative: patient lethargic, confused Results Lab / Micro Data 08/09/25 06:44 08/09/25 06:44 Labs: Laboratory Results - last 24 hr 08/09/25 06:44: WBC 14.2 H, RBC 3.63 L, Hgb 11.1 L, Hct 35.0 L, MCV 96.4 H, MCH 30.6, MCHC 31.7 L, RDW Std Deviation 61.9 H, RDW Coeff of Jennifer 18.0 H, Plt Count 184, MPV 10.3, Immature Gran % (Auto) 0.600, Neut % (Auto) 80.9 H, Lymph % (Auto) 7.7 L, [place] % (Auto) 6.0, Eos % (Auto) 4.3, Baso % (Auto) 0.5, Absolute Neuts (auto) 11.5 H, Absolute Lymphs (auto) 1.10, Nucleated RBC % 0, PT 16.5 H, INR 1.3, APTT 34.3, Sodium 134, Potassium 4.1, Chloride 95 L, Carbon Dioxide 24.9, Anion Gap 14, BUN 25 H, Creatinine 4.09 H, Estim Creat Clear Calc 14.37 L, Est GFR (MDRD) Non-Af 14 L, BUN/Creatinine Ratio 6.2 L, Glucose 99, Calcium 9.0, Phosphorus 2.5 L Imaging Radiology Impression Brain CT 08/09/25 03:39 IMPRESSION: 1. No intracranial hemorrhage. No mass effect or midline shift. 2. 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 Reading [facility] Femur X-Ray 08/09/25 03:39 IMPRESSION: Acute nondisplaced intratrochanteric fracture. Reading Location: [id number] Pelvis X-Ray 08/09/25 03:39 IMPRESSION: Acute nondisplaced right intertrochanteric femoral fracture. Reading Location: [id number] Chest X-Ray 08/09/25 06:38 IMPRESSION: Limited AP radiographs of the chest. Opacification of the right lower lung chavez may reflect underlying airway disease. Left pleural effusion. Reading Location: [id number] Assessment & Plan Assessment/Plan (1) Closed intertrochanteric fracture of right femur: QUALIFIERS: Encounter type: initial encounter Fracture alignment: nondisplaced Qualified Code(s): S72.144A - Nondisplaced intertrochanteric fracture of right femur, initial encounter for closed fracture PLAN: Plan #Acute right hip intertrochanteric femoral fracture due to mechanical fall Patient will out of his bed in the [facility] [place] and landed on the floor. CT of the brain did not show any acute intracranial pathology. Imaging done showed right intertrochanteric femoral fracture Due to patient's high risk status in light of his mitral and aortic valve replacements as well as further extensive cardiac history, cardiology consulted for cardiac risk stratification. ED doctor spoke to anesthesia also who said they would do the surgery here but patient was high risk and so recommended that he be admitted to the ICU and intubated afterwards. In light of the not being an in-house ICU doctor today, I did discuss with Dr. Irvin the orthopedic surgeon and per the discussion due to patient's high risk status we will delay the surgery till tomorrow so that he will be admitted to the ICU afterwards and be seen by the in-house wood barker. Patient's however subsequently came in and stated that she wanted patient sent to [facility] For any surgery as that is where he had had his previous care. Orthopedic surgeon informed me of this and so called me to [facility] Transfer line where he was accepted by the hospitalist service with orthopedics to be consulted. Disposition now is transferred to [facility] Pending bed availability. On p.o. Tylenol, IV morphine as needed for pain as well as p.o. oxycodone Fall precautions. #History of aortic and mitral valve stenosis: S/p aortic and mitral valve replacement On Coumadin. INR is subtherapeutic at 1.3. Started on heparin drip to keep him anticoagulated until he is transferred. Hold Coumadin for now #History of chronic pleural effusion: As per chest x-ray. Currently on room air. Will monitor closely. History of paroxysmal ventricular tachycardia: S/p radiofrequency ablation and also has a pacemaker in situ #ESRD: On hemodialysis. If patient not transferred by tomorrow, will need nephrology consult for dialysis #History of hypothyroidism: On Synthroid #History of cirrhosis with hyperammonemia: On lactulose DVT prophylaxis: on heparin drip Disposition: Patient accepted at [facility] and being transferred here per family request. Has been accepted and is awaiting a bed. CODE STATUS: Full code as per documents from [facility] [place]. Charges/Coding Visit Charges Inpatient E&M: 23330 Init Hosp L3
--- NOTE | 2025-08-09 10:42 | CON.PCM_ITS ---
Assessment & Plan Assessment/Plan (1) Closed intertrochanteric fracture of right femur: QUALIFIERS: Encounter type: initial encounter Fracture alignment: nondisplaced Qualified Code(s): S72.144A - Nondisplaced intertrochanteric fracture of right femur, initial encounter for closed fracture PLAN: Plan 75-year-old male with multiple medical comorbidities status post ground-level fall this a.m. with nondisplaced intertrochanteric right femur fracture. 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 He does ambulate with a walker typically, he does have periods of intermittent lucidity. I did review his injury and fracture pattern with his and discussed operative versus nonoperative intervention including cephalomedullary fixation of the right femur, there is increased risk of infection considering his osteomyelitis state, but overall from a orthopedic standpoint the surgery itself is pretty straightforward. Her concerns with his medical comorbidities which are significant and she states that if he needs anything done she would like him to be transferred to [facility] Due to his complexity and history there. I did notify the hospitalist of her wishes she will make arrangements for transfer. HPI Consult Data Date of Consult: 08/09/25 HPI Narrative HPI Narrative: CHRISTIAN RICHMOND, is a 75 M who has a complicated medical history with multiple comorbidities including osteomyelitis active on vancomycin who who is a previous patient of [facility]. Had a history of nondisplaced acetabular fracture in March who has had a recent fall this morning out of his bed injuring his right hip. Sustaining a nondisplaced intertrochanteric femur fracture significant pain he does have his present at bedside who provides all of the history he cannot comply with history or very much with commands. He does seem to be very uncomfortable. [facility] Medical History Pleural effusion associated with hepatic disorder ABLA (acute blood loss anemia) Anemia requiring transfusions Atherosclerotic heart disease of [place] coronary artery without angina pectoris Cirrhosis HLD (hyperlipidemia) Other specified cardiac dysrhythmias ESRD (end stage renal disease) on dialysis CKD stage G5/A1, GFR <15 and albumin creatinine ratio <30 mg/g Sepsis Vitamin D insufficiency Polyneuropathy Mild cognitive impairment Epilepsy residential (current) use of anticoagulants History of rheumatic fever as a child COVID-19 Infectious endocarditis Non-ST elevation (NSTEMI) myocardial infarction CAD (coronary artery disease) History of pacemaker Coagulopathy Airway intubation performed without difficulty Cardiopulmonary arrest with successful resuscitation Hypothyroidism (acquired) Abnormal results of thyroid function studies Hyperthyroidism MIA (obstructive sleep apnea) Dyspnea Non-rheumatic mitral regurgitation Non-rheumatic mitral valve stenosis Iron deficiency History of diffuse large B-cell lymphoma Anemia in chronic kidney disease Pure hypercholesterolemia Biventricular cardiac pacemaker in situ (~05/26/16) Encounter for long-term (current) use of high-risk medication 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, 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 TIA (transient ischemic attack) (~11/19/15) History of DVT (deep vein thrombosis) Gout Paroxysmal ventricular tachycardia Atrial flutter Cardiomyopathy in disease classified elsewhere MRSA (methicillin resistant Staphylococcus aureus) infection History of non-Hodgkin's lymphoma Endocarditis due to Staphylococcus Benign essential hypertension Home Medications Medication Instructions Recorded Last Taken Type levothyroxine 75 mcg tablet 75 mcg PO DAILY thyroid 12/16/24 History vitamin B complex-vitamin C-folic 1 tab PO DAILY vitam in 01/10/22 12/16/24 History acid 0.8 mg tablet (Nephro-Baltazar) doxycycline hyclate 100 mg tablet 100 mg PO BID infect ion 11/27/22 12/16/24 History fluconazole 200 mg tablet 200 mg PO DAILY 06/11/23 History albuterol sulfate 90 mcg/actuation 2 puff inhalation Q 4-6H PRN 03/19/24 Unknown History aerosol inhaler shortness of breath or wheez ing cyclobenzaprine 10 mg tablet 10 mg PO BID 05/28/24 History pantoprazole 40 mg tablet,delayed 40 mg PO QAM #90 tab s 12/01/24 12/16/24 Rx release warfarin 1 mg tablet (Jantoven) 2 mg PO .satsun 12/16/24 History warfarin 2 mg tablet 1 mg PO .-sun12/16/2411/20 History amoxicillin 500 mg capsule 2,000 mg PO DAILY PRN DENTA L 12/17/24 Unknown History TREATMENT triamcinolone acetonide 0.1 % 1 applic topical BID PRN SKIN 12/17/24 Unknown History 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 lactulose 10 gram/15 mL oral 20 ml PO QDAY 01/28/25 Un known History solution (Constulose) metoclopramide HCl 5 mg tablet 2.5 mg (1/2 x 5 mg) PO QAC #50 tabs 03/17/25 Unknown Rx midodrine 10 mg tablet See Rx Instructions PO .COMP STU To 03/25/25 Unknown History keep BP up during dialysis alprazolam 1 mg tablet (Xanax) 1 mg PO QHS Sleep 05/27 Unknown History sucroferric oxyhydroxide 500 mg 500 mg PO TID To reduc e phosphorus 05/27/25 Unknown History chewable tablet (Velphoro) in blood amino acids-protein hydrolysate 16 30 ml PO DAILY 04/12 Unknown History gram-100 kcal/30 mL oral liquid (Liquacel) docusate sodium 100 mg capsule 100 mg PO DAILY 5 Unknown History (Colace) docusate sodium 100 mg capsule 200 mg PO QHS 06/23/25 Unknown History (Colace) oxycodone 5 mg tablet 5 mg PO Q6H PRN PRN pain Unknown History Allergy/AdvReac Type Severity Reaction Status Date / Time No Known Allergies Allergy Verified 08/09/25 03:22 Family History Father CAD (coronary artery disease) CABG Brother CAD (coronary artery disease) CABG Mother Diabetes Sister Breast cancer Diabetes Sister Cancer breast Diabetes Surgical History History of esophagogastroduodenoscopy (EGD) History of colonoscopy S/P arteriovenous (AV) fistula repair History of mechanical aortic valve replacement (~08/24/03) History of heart valve replacement with mechanical valve History of atrioventricular chiquita ablation History of heart valve replacement with mechanical valve History of evacuation of hematoma History of cholecystectomy History of appendectomy dual chamber pacemaker implantation (~10/2010) History of aortic valve replacement (~08/2003) History of mitral valve repair (~08/24/03) History of mechanical aortic valve replacement (~1986) Social History household members: spouse housing: house current occupational status: retired current occupational exposures/hazards: No history of recent travel: No Smoking Status: Never smoker alcohol intake: never substance use type: does not use caffeine: No what type of physical activity do you participate in: weight training and other details: Nustep frequency: 3-4 times per week duration: 45-60 minutes/day seatbelt use: always do you feel safe at home: Yes Physical Exam Const Negative for alert, oriented x3, no apparent distress or healthy appearing General Appearance: disheveled and ill appearing Orientation / Consciousness: awake; Negative for oriented to place or oriented to time Extremity Extremity Narrative: His right hip has some superficial excoriations but no significant ecchymosis or swelling he does have a positive logroll his compartments are soft he has palpable pedal pulses and he is able to move his ankle and toes with significant prompting from his . Lab / Micro Data 08/09/25 06:44 08/09/25 06:44 Labs: Laboratory Results - last 24 hr 08/09/25 06:44: WBC 14.2 H, RBC 3.63 L, Hgb 11.1 L, Hct 35.0 L, MCV 96.4 H, MCH 30.6, MCHC 31.7 L, RDW Std Deviation 61.9 H, RDW Coeff of Jennifer 18.0 H, Plt Count 184, MPV 10.3, Immature Gran % (Auto) 0.600, Neut % (Auto) 80.9 H, Lymph % (Auto) 7.7 L, [place] % (Auto) 6.0, Eos % (Auto) 4.3, Baso % (Auto) 0.5, Absolute Neuts (auto) 11.5 H, Absolute Lymphs (auto) 1.10, Nucleated RBC % 0, PT 16.5 H, INR 1.3, APTT 34.3, Sodium 134, Potassium 4.1, Chloride 95 L, Carbon Dioxide 24.9, Anion Gap 14, BUN 25 H, Creatinine 4.09 H, Estim Creat Clear Calc 14.37 L, Est GFR (MDRD) Non-Af 14 L, BUN/Creatinine Ratio 6.2 L, Glucose 99, Calcium 9.0, Phosphorus 2.5 L Imaging Radiology Impression Brain CT 08/09/25 03:39 IMPRESSION: 1. No intracranial hemorrhage. No mass effect or midline shift. 2. 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 Reading [facility] Femur X-Ray 08/09/25 03:39 IMPRESSION: Acute nondisplaced intratrochanteric fracture. Reading Location: [id number] Pelvis X-Ray 08/09/25 03:39 IMPRESSION: Acute nondisplaced right intertrochanteric femoral fracture. Reading Location: [id number] Chest X-Ray 08/09/25 06:38 IMPRESSION: Limited AP radiographs of the chest. Opacification of the right lower lung chavez may reflect underlying airway disease. Left pleural effusion. Reading Location: [id number]
[2025-08-09] MEDS: HEPARIN/D5w 25,000 UNITS 25,000 UNITS/250 ML IV.SOLN. 11.1 UNITS CONT INF (11:18)
[2025-08-09 18:14] LABS: Partial Thromboplast Time 137.4 Seconds (24.1-36.2)
--- NOTE | 2025-08-09 19:33 | NURSING ---
Called report to Leda at [facility]. No other questions.
== END 2025-08-09 22:27 | disposition short-term general hospital (02) | DRG 542 ==
LOC: ED 07:40 → PCU 08:23
PROVIDERS: Admitting Provider Student in an Organized Health Care Education/Training Program; Emergency Provider Emergency Medicine; PCP Internal Medicine; Visit Provider Student in an Organized Health Care Education/Training Program
DX: M80.051A Age-related osteoporosis with current pathological fracture, right femur, initial encounter for fracture (principal); N18.6 End stage renal disease; I12.0 Hypertensive chronic kidney disease with stage 5 chronic kidney disease or end stage renal disease; I47.20 Ventricular tachycardia, unspecified; J90 Pleural effusion, not elsewhere classified; K74.60 Unspecified cirrhosis of liver; E03.9 Hypothyroidism, unspecified; Z95.2 Presence of prosthetic heart valve; Z99.2 Dependence on renal dialysis; E78.2 Mixed hyperlipidemia; I25.10 Atherosclerotic heart disease of native coronary artery without angina pectoris; W06.XXXA Fall from bed, initial encounter; I25.2 Old myocardial infarction; Z95.0 Presence of cardiac pacemaker; Z79.01 Long term (current) use of 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; Z79.890 Hormone replacement therapy; Z79.899 Other long term (current) drug therapy; Z86.16 Personal history of COVID-19; Z86.718 Personal history of other venous thrombosis and embolism; Z86.73 Personal history of transient ischemic attack (TIA), and cerebral infarction without residual deficits; Z86.74 Personal history of sudden cardiac arrest
CPT/HCPCS: 70450; 71045; 72170; 73552; 80048; 84100; 85025; 85610; 85730; 93005; 97802; 99285; A4216; J2405

== ENCOUNTER → 2025-09-09 | Outpatient (CLI) | payer MEDICARE, OTHER, SELFPAY ==
--- NOTE | 2025-09-09 09:46 | ART_ITS ---
Reason For Study Reason For Study: Toe Wound Procedure A bilateral lower extremity continuous wave Doppler with analog waveform analysis,segmental pressures,and ankle brachial indexes without exercise. Left Segmental Pressures Left brachial= 95mmHg. Left posterior tibial artery = 90mmHg. Left dorsalis pedis artery = 132mmHg. Left digit = 54 mmHg. The left posterior tibial artery waveforms are biphasic. The left dorsalis pedis waveforms are biphasic. Right Segmental Pressures Right brachial= 99mmHg. Right posterior tibial artery = 127mmHg. Right dorsalis pedis artery = >254mmHg. Right digit = 91 mmHg. The right posterior tibial artery waveforms are biphasic. The right dorsalis pedis waveforms are triphasic. Indices The right ankle brachial index by the posterior tibial artery is 1.28. The right ankle brachial index by the dorsalis pedis is N/C. The right digital-brachial index is 0.92. The left ankle brachial index by the posterior tibial artery is 0.91. The left ankle brachial index by the dorsalis pedis is 1.33. The left digital-brachial index is 0.55. VL/Lower Ext Art Exam w/o Exercis Interpretation Summary Right OUMAR 1.28, normal. TBI and Doppler/PVR waveforms of the right leg normal a t rest. Left OUMAR 1.33, may be artificially elevated. Doppler/PVR waveforms of the left leg mildly diminished infrapopliteal. Ordering Physician: Ekta To Referring Physician: Constantino Frank Performed By: Chris Chen, RVT
== END | disposition home or self-care (01) ==
LOC: CVS 09:46
PROVIDERS: PCP Internal Medicine; Referring Provider Physician Assistant; Visit Provider Physician Assistant
DX: I73.9 Peripheral vascular disease, unspecified (principal)
CPT/HCPCS: 93923

== ENCOUNTER 2025-09-16 10:51 | Emergency (ER) | payer MEDICARE, OTHER, SELFPAY ==
[2025-09-16 10:56] VITALS: BP 107/31; PULSE 72; RESP 16; TEMP 36.8; O2SAT 100; BMI 21.9
--- NOTE | 2025-09-16 11:44 | RAD_ITS ---
PROCEDURE: RAD/Lumbar Spine 2 or 3 Views
[2025-09-16 12:07] LABS: Hematocrit 34.8 % (40-54); Hemoglobin 11.2 g/dL (13.0-16.5); Immature Granulocytes Count 0.060 X10^3/uL (0.0-0.0); Mean Corp Hgb Conc 32.2 g/dL (32-36); Mean Corpuscular Volume 96.1 fL (80-94); Mean Platelet Vol. 9.4 fl (6.2-12.0); NRBC Flagged by Analyzer 0 % (0-5); POSITIVE MORPHOLOGY YES; Platelet Count 235 K/mm3 (150-450); RBC Distribution Width CV 18.5 % (11.6-14.6); RBC Distribution Width SD 65.7 fl (35.1-43.9); Red Blood Count 3.62 M/mm3 (4.6-6.2); White Blood Count 7.5 K/mm3 (4.4-11.0)
[2025-09-16 12:08] LABS: Differential Indicated SCAN CRITERIA MET
[2025-09-16 12:17] LABS: Prothrombin Time (Protime)PT. 34.9 SECONDS (11.7-14.9)
[2025-09-16 12:35] LABS: Anisocytosis 1+
[2025-09-16 12:42] LABS: Anion Gap 11 (5-15); BUN 14 mg/dL (4-19); BUN/Creat Ratio 4.1 RATIO (10-20); Calcium,Total 9.5 mg/dL (7.6-11.0); Carbon Dioxide 28.3 mmol/L (21.0-32.0); Chloride 99 mmol/L (98-108); Estimated Creatinine Clearance 16.13 ml/min (50-250); Glucose 90 mg/dL (70-99); Potassium 4.0 mmol/L (3.3-5.1)
[2025-09-16 12:53] VITALS: PULSE 79; RESP 18; O2SAT 99
[2025-09-16 13:12] VITALS: BP 111/50; PULSE 79; RESP 18; O2SAT 100
[2025-09-16 15:00] VITALS: BP 89/46; PULSE 69; RESP 18; O2SAT 100
--- NOTE | 2025-09-16 16:22 | ED.VIS.BACK ---
HPI History of Present Illness Chief Complaint: Back Informant: patient, spouse/S.O., family and EMS Narrative Narrative: Patient is a 75-year-old male with a history of mechanical valve replacement, pacemaker, and dialysis, presenting to the ED with worsening back pain and a noticeable lump on the back. Patient is accompanied by his , who is supplementing history. - Patient's reports a lump on the patient's back, which has been increasing in size over the past few months. - Lump was initially small but has grown significantly; noticed it while applying lotion and reports it is the source of the patient's pain. - Pain is described as the worst it has been; patient reportedly yelled out when the area was touched by his physician earlier today. - Lump is more prominent when patient is sitting up; not associated with erythema or signs of infection. - Patient has been scratching the area due to pruritus; recently discontinued Atarax. -Apparently today, the patient was doing fairly well this morning, but then he was in the doctor's office for his post-SNF follow-up, and was in a wheelchair waiting for practitioner and was not able to lie down like he wanted to for comfort, and his pain increased and was then significant upon the primary care doctor evaluating him, and he felt like he was not able to do so adequately due to the amount of pain that he was in. - Patient has a history of two compression fractures at L2 and L3, diagnosed in July and apparently complicated by osteomyelitis diagnosed with CTs at outside hospital because he has an MRI-incompatible pacemaker; following the fractures and was on parenteral antibiotics (following with ID) for 1-2 months, which finished at the beginning of this month, August. Had been in senior living and now home with for the last 1.5-2 weeks, and she has had him back on doxycycline which he was on prior to this because of a history of MRSA. No recent fevers. No new numbness or weakness in lower extremities. Working with multiple therapists that are coming to the home, and doing more ambulating with assistance and activity and therapy lately. - Patient has been experiencing chronic back pain since the fractures, managed with Tylenol and occasionally oxycodone which ran out today or yesterday. - Patient has had multiple falls recently; reports his INR is possibly very high via attempted reading at home, above 8, and did not register on their machine today. His minor abrasions/wounds have been oozing more blood today. - Denies fevers; temperature is monitored during dialysis sessions. 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 History of rheumatic fever as a child COVID-19 Infectious endocarditis Non-ST elevation (NSTEMI) myocardial infarction CAD (coronary artery disease) History of pacemaker Coagulopathy Airway intubation performed without difficulty Cardiopulmonary arrest with successful resuscitation Hypothyroidism (acquired) Abnormal results of thyroid function studies Hyperthyroidism MIA (obstructive sleep apnea) Dyspnea Non-rheumatic mitral regurgitation Non-rheumatic mitral valve stenosis Iron deficiency History of diffuse large B-cell lymphoma Anemia in chronic kidney disease Pure hypercholesterolemia Biventricular cardiac pacemaker in situ (~05/26/16) Encounter for long-term (current) use of high-risk medication 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, 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 TIA (transient ischemic attack) (~11/19/15) History of DVT (deep vein thrombosis) Gout Paroxysmal ventricular tachycardia Atrial flutter Cardiomyopathy in disease classified elsewhere MRSA (methicillin resistant Staphylococcus aureus) infection (Unknown) History of non-Hodgkin's lymphoma Endocarditis due to Staphylococcus (~03/2025) Benign essential hypertension Home Medications ?Medication ?Instructions ?Recorded ?Last Taken ?Type levothyroxine 75 mcg tablet 75 mcg PO DAILY thyroid 08/24/21 12/16/24 History vitamin B complex-vitamin C-folic 1 tab PO DAILY vitamin 01/10/22 12/16/24 History acid 0.8 mg tablet (Nephro-Baltazar) fluconazole 200 mg tablet 200 mg PO DAILY 06/11/23 12/16/24 History albuterol sulfate 90 mcg/actuation 2 puff inhalation Q4-6H PRN 03/19/24 Unknown History aerosol inhaler shortness of breath or wheezing pantoprazole 40 mg tablet,delayed 40 mg PO QAM #90 tabs 12/01/24 12/16/24 Rx release warfarin 1 mg tablet (Jantoven) 2 mg PO .COMPLEX Atherosclerotic 12/16/24 12/16/24 History heart disease warfarin 2 mg tablet 3 mg PO .COMPLEX Atherosclerotic 12/16/24 12/15/24 History heart disease triamcinolone acetonide 0.1 % 1 applic topical BID PRN SKIN 12/17/24 Unknown History 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 lactulose 10 gram/15 mL oral 20 ml PO QDAY 01/28/25 Unknown History solution (Constulose) metoclopramide HCl 5 mg tablet 2.5 mg (1/2 x 5 mg) PO QAC #50 tabs 03/17/25 Unknown Rx midodrine 10 mg tablet See Rx Instructions PO .COMPLEX To 03/25/25 Unknown History keep BP up during dialysis sucroferric oxyhydroxide 500 mg 500 mg PO TID To reduce phosphorus 05/27/25 Unknown History chewable tablet (Velphoro) in blood amino acids-protein hydrolysate 16 30 ml PO DAILY 06/23/25 Unknown History gram-100 kcal/30 mL oral liquid (Liquacel) docusate sodium 100 mg capsule 100 mg PO DAILY 06/23/25 Unknown History (Colace) ferrous sulfate 325 mg (65 mg 325 mg PO QDAY 08/27/25 Unknown History iron) tablet lidocaine 4 % topical patch 1 patch topical BID PRN 08/27/25 Unknown History naloxone 0.4 mg/mL injection 0.2 mg IM ONCE 08/27/25 Unknown History syringe oxycodone 10 mg tablet 10 mg PO DIRECTED pain 20 days 09/04/25 Unknown Rx #20 tabs enoxaparin 60 mg/0.6 mL 60 mg subcut Q12H PRN 09/07/25 Unknown History subcutaneous syringe oxycodone 5 mg tablet 5 - 10 mg (1 - 2 x 5 mg) PO Q6H 09/16/25 Unknown Rx PRN pain 3 days #20 tabs Allergy/AdvReac Type Severity Reaction Status Date / Time No Known Allergies Allergy Verified 08/27/25 09:51 Family History Father CAD (coronary artery disease) CABG Brother CAD (coronary artery disease) CABG Mother Diabetes Sister Breast cancer Diabetes Sister Cancer breast Diabetes Surgical History History of esophagogastroduodenoscopy (EGD) History of colonoscopy S/P arteriovenous (AV) fistula repair History of mechanical aortic valve replacement (~08/24/03) History of heart valve replacement with mechanical valve History of atrioventricular chiquita ablation History of heart valve replacement with mechanical valve History of evacuation of hematoma History of cholecystectomy History of appendectomy dual chamber pacemaker implantation (~10/2010) History of aortic valve replacement (~08/2003) History of mitral valve repair (~08/24/03) History of mechanical aortic valve replacement (~1986) Social History household members: spouse housing: house current occupational status: retired current occupational exposures/hazards: No history of recent travel: No Smoking Status: Never smoker alcohol intake: never substance use type: does not use caffeine: No what type of physical activity do you participate in: weight training and other details: Nustep frequency: 3-4 times per week duration: 45-60 minutes/day seatbelt use: always do you feel safe at home: Yes ROS ROS ED Constitutional Constitutional ED: Reports fatigue; Denies chills or fever(s) Eyes Eyes: Denies change in vision or diplopia ENT ENT ED: Denies rhinorrhea or sore throat Cardiovascular Cardiovascular: Denies chest pain or palpitations Respiratory/Chest Respiratory/Chest: Denies cough or dyspnea Gastrointestinal Gastrointestinal: Denies abdominal pain, diarrhea, nausea or vomiting Genitourinary Genitourinary ED: Denies dysuria or hematuria Musculoskeletal Musculoskeletal: Reports arthralgias and back pain; Denies neck pain Integumentary Reports Abrasions and wounds; Denies abscess or rash Neurologic Neurologic: Denies headache(s), paresthesias or weakness Psychiatric Psychiatric: Denies anxiety or suicidal thoughts Hematologic/Lymphatic Hematologic/Lymphatic: Reports easy bleeding and easy bruising EXAM Physical Exam Const Vital Signs: 09/16/25 10:56 09/16/25 12:53 09/16/25 13:12 Temperature 98.2 F Temperature Source Axillary Pulse Rate 72 79 79 Respiratory Rate 16 18 18 Blood Pressure 107/31 L 111/50 L Blood Pressure Mean 56 70 Pulse Ox 100 99 100 Oxygen Delivery Method Room Air Room Air 10/29/25 15:00 Temperature Temperature Source Pulse Rate 69 Respiratory Rate 18 Blood Pressure 89/46 L Blood Pressure Mean 59 Pulse Ox 100 Oxygen Delivery Method Positive well nourished and well developed General Appearance ED: well developed and NAD HEENT Reports moist mucous membranes normocephalic and atraumatic Eyes PERRL and EOMs intact bilaterally Neck full ROM and supple Resp normal respiratory effort and clear to auscultation bilaterally Cardio regular rate, regular rhythm and no murmurs GI non-tender and non-distended Auscultation: normoactive bowel sounds Palpation: soft Back/Spine no CVA tenderness Back/Spine Narrative: Superficial healing abrasion left low back around the thoracolumbar junction, nontender, no palpable mass or lump, no erythema or signs of infection. Spine nontender. General Back: other Range of motion limited due to pain, has pain about the lumbar back with movement, but no reproducible tenderness or masses. Extremity normal to inspection General Extremety ED: Negative for edema, pulses abnormal or tenderness General Extremity: Negative for edema or pulses abnormal Neuro CN's II-XII intact bilaterally and no sensory deficits noted Neuro Narrative: Generally weak symmetrically so throughout lower extremities. Baseline mental status per family. Sensorium / Orientation: awake and alert Psych mental status grossly normal Skin no rashes or lesions noted and no wounds MDM MDM MDM Narrative Medical decision making narrative: Regarding the swelling that the was concerned about, there is no swelling on the patient?s back. I can palpate his spine, and it is non-tender. He has pain in the upper lumbar area with movement, but otherwise he is doing fairly well lying in bed leaning to the left. There are minor abrasions over the area where the reports the swelling was present, which she states resulted from his scratching. There is currently no swelling, and she confirms this. We even sat the patient up?she said it was more prominent when he sat up, but it is simply not present right now, and she agrees with that assessment. None of the area is tender, and there is no sign of erythema or infection, including where the abrasions are present. I cannot reproduce any tenderness in the patient?s back with palpation, even deeply into the musculature. There is no ecchymosis or purpura and no Bryson or Clark-George signs. His abdomen is benign and non-tender. He is neurovascularly intact distally throughout both lower extremities. He is generally symmetrically weak, but his reflexes are intact and there is no clonus. He does not have a fever, his vital signs are normal, and ancillary labs show no leukocytosis. His white blood cell count is 7.5 with no leftward shift or bandemia. He has chronic renal failure. His INR is 3.4, which is a bit high but not as high as the thought it would be. His electrolytes are all normal at this time. His lactate is 1.2, which argues against sepsis. We gave him a dose of morphine while waiting for the tests, and he did very well, experiencing no pain as long as he did not move. I obtained lumbar x-rays (three views). My interpretation, which radiology confirmed, shows some abnormalities in L2 and L3. These are nonspecific and do not rule out infection, but I do not suspect an acute recurrence of his osteomyelitis or another acute spinal condition at this time. These are the same two vertebrae affected before, so I would expect them to appear abnormal on x-ray. I did not see any additional compression fractures related to his recent minor falls, and the confirms there have been no major falls or back injuries. He has been doing more work with therapy, which may explain why his back is more painful today. Overall, since he completed parenteral antibiotics at the beginning of August, his back pain has not been gradually worsening. He has had good days and bad days, and the reports today was a bad day, but he was not as uncomfortable before the office visit. They are out of oxycodone. We discussed getting repeat advanced imaging of the low back, such as a CT scan. All parties agree that our suspicion for recurrence of his previous issues is not high at this time. The patient and family decline additional imaging and are comfortable taking him home with a prescription for oxycodone, which I provided, and following up with Dr. Menjivar. I discussed the situation with Dr. Menjivar by phone, and he was similarly more concerned about the patient?s level of pain rather than the swelling. He also did not notice any significant swelling in the office. With regards to the patient's elevated INR, the is already spoke with the cardiology office staff and received new instructions with regards to providing his warfarin dosing and rechecking his INR at home which she has the equipment to do. I do not see evidence of an emergent condition right now. The family understands the limitations of what I can tell them regarding his chronic back discomfort, especially without the possibility of an MRI. If his issues continue, they are welcome to return, at which time I would be happy to obtain a CT. For now, we will send him home with prescriptions for oxycodone. He will follow up with his primary care provider within the next 24 to 48 hours, and they will address the other issues that were going to be discussed at today?s visit. He should continue therapy and ambulate with assistance from a walker and his as needed. The and son are comfortable with this plan. Lab Data Attestation: I reviewed the patient's lab results. Labs: Laboratory Results - last 24 hr 09/16/25 11:58 WBC 7.5 RBC 3.62 L Hgb 11.2 L Hct 34.8 L MCV 96.1 H MCH 30.9 MCHC 32.2 RDW Std Deviation 65.7 H RDW Coeff of Jennifer 18.5 H Plt Count 235 MPV 9.4 Immature Gran % (Auto) 0.800 Neut % (Auto) 66.9 Lymph % (Auto) 16.1 L Waller % (Auto) 9.8 Eos % (Auto) 5.5 H Baso % (Auto) 0.9 Absolute Neuts (auto) 5.0 Absolute Lymphs (auto) 1.20 Nucleated RBC % 0 Anisocytosis 1+ PT 34.9 H INR 3.4 Sodium 139 Potassium 4.0 Chloride 99 Carbon Dioxide 28.3 Anion Gap 11 BUN 14 Creatinine 3.50 H Estim Creat Clear Calc 16.13 L Est GFR (MDRD) Non-Af 17 L BUN/Creatinine Ratio 4.1 L Glucose 90 Lactic Acid 1.2 Calcium 9.5 Radiography Diagnostic Testing: Clinical Impression(s) from Imaging Studies Lumbar Spine X-Ray 09/16/25 11:44 IMPRESSION: Significant bone volume loss is seen at the opposing endplates of L2 and L3. Underlying infection is not excluded. This has progressed when compared to June 23, 2025 CT. Correlate with history, fever, white count. Consider contrast-enhanced MRI. Reading Location: [id number] Management Discussion w/another healthcare provider: PCP Discharge Plan Triage Chief Complaint: Back ED Provider: Alli Centeno Dx/Rx/DC Orders Clinical Impression: Acute exacerbation of chronic low back pain, ESRD (end stage renal disease) on dialysis, Debility, Supratherapeutic INR, Mild cognitive impairment Instructions: ED Back Pain (Acute or Chronic) Prescriptions: New oxycodone 5 mg tablet 5 - 10 mg PO Q6H PRN (Reason: pain) 3 Days Qty: 20 0RF No Action fluconazole 200 mg tablet 200 mg PO DAILY albuterol sulfate 90 mcg/actuation HFA aerosol inhaler 2 puff inhalation Q4-6H PRN (Reason: shortness of breath or wheezing) Patient Comments: pt hasnt taken in over year metoclopramide HCl 5 mg tablet 2.5 mg PO QAC Qty: 50 1RF Rx Instructions: administer 30 minutes before meals midodrine 10 mg tablet See Rx Instructions PO .COMPLEX Patient Comments: Take up to 4 tabs on dialysis days Rx Instructions: orally; up to 4 tabs on dialysis days () Velphoro 500 mg tablet,chewable 500 mg PO TID levothyroxine 75 mcg tablet 75 mcg PO DAILY Nephro-Baltazar 0.8 mg tablet 1 tab PO DAILY warfarin [Novtoven] 1 mg tablet 2 mg PO .COMPLEX Protocol: Dose Management Condition: Sunday Dose/Route: 3 mg Instruction: 1 x 1 mg tablet, 1 x 2 mg tablet Condition: Sunday Dose/Route: 3 mg Instruction: 1 x 1 mg tablet, 1 x 2 mg tablet Condition: Sunday Dose/Route: 3 mg Instruction: 1 x 1 mg tablet, 1 x 2 mg tablet Condition: Sunday Dose/Route: 2 mg Instruction: 1 x 2 mg tablet Condition: Dose/Route: 3 mg Instruction: 1 x 1 mg tablet, 1 x 2 mg tablet Condition: Sunday Dose/Route: 3 mg Instruction: 1 x 1 mg tablet, 1 x 2 mg tablet Condition: Sunday Dose/Route: 3 mg Instruction: 1 x 1 mg tablet, 1 x 2 mg tablet Protocol Text: Adjustment Start Date: Sunday09/16/25 INR Value: 3.4 INR Date: 09/16/25 Recheck Date: 09/18/25 Patient Comments: BASED ON INR Rx Instructions: 2 mg orally , Sun, Sun; warfarin 2 mg tablet 3 mg PO .COMPLEX Protocol: Dose Management Condition: Sunday Dose/Route: 3 mg Instruction: 1 x 1 mg tablet, 1 x 2 mg tablet Condition: Sunday Dose/Route: 3 mg Instruction: 1 x 1 mg tablet, 1 x 2 mg tablet Condition: Sunday Dose/Route: 3 mg Instruction: 1 x 1 mg tablet, 1 x 2 mg tablet Condition: Sunday Dose/Route: 2 mg Instruction: 1 x 2 mg tablet Condition: Dose/Route: 3 mg Instruction: 1 x 1 mg tablet, 1 x 2 mg tablet Condition: Sunday Dose/Route: 3 mg Instruction: 1 x 1 mg tablet, 1 x 2 mg tablet Condition: Sunday Dose/Route: 3 mg Instruction: 1 x 1 mg tablet, 1 x 2 mg tablet Protocol Text: Adjustment Start Date: Sunday09/16/25 INR Value: 3.4 INR Date: 09/16/25 Recheck Date: 09/18/25 Patient Comments: BASED ON INR Rx Instructions: 3 mg orally Sun, Sun, , Sat; lactulose [Constulose] 10 gram/15 mL solution 20 ml PO QDAY triamcinolone acetonide 0.1 % lotion 1 applic topical BID PRN (Reason: SKIN 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) Liquacel 16-100 gram-kcal/30 mL liquid 30 ml PO DAILY docusate sodium [Colace] 100 mg capsule 100 mg PO DAILY pantoprazole 40 mg tablet,delayed release (DR/EC) 40 mg PO QAM Qty: 90 3RF oxycodone 10 mg tablet 10 mg PO DIRECTED 20 Days Qty: 20 0RF Rx Instructions: 10mg p.o. at 5am and 10mg p.o. q 6 hours prn enoxaparin 60 mg/0.6 mL syringe 60 mg subcut Q12H PRN Primary Care Provider: David Menjivar Referrals: David Menjivar DO [Primary Care Provider, Family Practice] Referral Note: office to contact you within a day Activity Restrictions/Additional Instructions: Warfarin schedule adjustments according to your cardiology office recommendations as well as retesting. Print Language: Bolivian Disposition Disposition: Home, Self Care Discharge Date/Time: 09/16/25 16:50
[2025-09-16 16:49] VITALS: BP 105/54; PULSE 74; RESP 14; TEMP 36.4; O2SAT 99
== END 2025-09-16 16:50 | disposition home or self-care (01) ==
PROVIDERS: Emergency Provider Emergency Medicine; PCP Family Medicine; Visit Provider Emergency Medicine
DX: M54.50 Low back pain, unspecified (principal); N18.6 End stage renal disease; I12.0 Hypertensive chronic kidney disease with stage 5 chronic kidney disease or end stage renal disease; I25.2 Old myocardial infarction; G89.29 Other chronic pain; G31.84 Mild cognitive impairment of uncertain or unknown etiology; Z99.2 Dependence on renal dialysis; R79.1 Abnormal coagulation profile; R53.81 Other malaise; Z95.0 Presence of cardiac pacemaker; Z95.2 Presence of prosthetic heart valve; Z79.01 Long term (current) use of 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; Z79.899 Other long term (current) drug therapy; Z86.16 Personal history of COVID-19
CPT/HCPCS: 72100; 80048; 83605; 85025; 85610; 96374; 96375; 99285; A4216; J2405

== ENCOUNTER 2025-09-22 07:53 | Emergency (ER) | payer MEDICARE, OTHER, SELFPAY ==
[2025-09-22 07:57] VITALS: BP 114/40; PULSE 85; RESP 20; TEMP 37.1; O2SAT 100; BMI 20.9
--- NOTE | 2025-09-22 08:41 | CT_ITS ---
PROCEDURE: CT/Spine Cervical without Contras
--- NOTE | 2025-09-22 08:41 | CT_ITS ---
PROCEDURE: CT/Brain/Head without Contrast
[2025-09-22 08:44] VITALS: BP 97/38; PULSE 71; RESP 17; O2SAT 97
--- NOTE | 2025-09-22 08:46 | EX.ED.GENINJ ---
HPI History of Present Illness Chief Complaint: Fall Informant: patient Narrative Narrative: Patient 75-year-old male with history of end-stage renal disease on dialysis (last dialysis was on and is due for it later this morning), chronic anticoagulation on Coumadin (had INR 4.8 yesterday), mechanical aortic valve replacement, liver cirrhosis (on lactulose), mild cognitive impairment, pacemaker, cardiomyopathy, coronary artery disease, MIA, chronic back pain and prior osteomyelitis/bacteremia of staph epidermis earlier this year. He is presenting after a fall out of bed. Reportedly from he was try to get out of bed (states he was getting ready for islam) when she heard to thumps. She thinks he hit his knees and his head when he fell out of the bed. No reported loss of conscious and she went to the bedside soon as she heard a thump. States that he is a little confused but this is his baseline since his last hospitalization. Does notes that he had blood cultures last week that were negative and he is currently being followed by [facility]. Denies any vomiting, recent change in appetite or change in bowel movements. No fevers reported no new rash reported. States he is chronically itchy but that is unchanged. Feels that he is at his normal state of health currently and just wants to make sure he does not have any intracranial hemorrhage because he hit his head this morning. Patient is complaining of pain but does not localize. states he has chronic pain and takes oxycodone 10 mg in the morning but has not had it yet today. He is anuric. No other complaints or concerns reported at this time. [facility] Medical History Pleural effusion associated with hepatic disorder ABLA (acute blood loss anemia) Anemia requiring transfusions Atherosclerotic heart disease of [place] coronary artery without angina pectoris Cirrhosis HLD (hyperlipidemia) Other specified cardiac dysrhythmias ESRD (end stage renal disease) on dialysis CKD stage G5/A1, GFR <15 and albumin creatinine ratio <30 mg/g Sepsis Vitamin D insufficiency Polyneuropathy Mild cognitive impairment Epilepsy senior care (current) use of anticoagulants History of rheumatic fever as a child COVID-19 Infectious endocarditis Non-ST elevation (NSTEMI) myocardial infarction CAD (coronary artery disease) History of pacemaker Coagulopathy Airway intubation performed without difficulty Cardiopulmonary arrest with successful resuscitation Hypothyroidism (acquired) Abnormal results of thyroid function studies Hyperthyroidism MIA (obstructive sleep apnea) Dyspnea Non-rheumatic mitral regurgitation Non-rheumatic mitral valve stenosis Iron deficiency History of diffuse large B-cell lymphoma Anemia in chronic kidney disease Pure hypercholesterolemia Biventricular cardiac pacemaker in situ (~05/26/16) Encounter for long-term (current) use of high-risk medication 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, 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 TIA (transient ischemic attack) (~11/19/15) History of DVT (deep vein thrombosis) Gout Paroxysmal ventricular tachycardia Atrial flutter Cardiomyopathy in disease classified elsewhere MRSA (methicillin resistant Staphylococcus aureus) infection (Unknown) History of non-Hodgkin's lymphoma Endocarditis due to Staphylococcus (~03/2025) Benign essential hypertension Home Medications ?Medication ?Instructions ?Recorded ?Last Taken ?Type vitamin B complex-vitamin C-folic 1 tab PO DAILY vitamin 01/10/22 12/16/24 History acid 0.8 mg tablet (Nephro-Baltazar) albuterol sulfate 90 mcg/actuation 2 puff inhalation Q4-6H PRN 03/19/24 Unknown History aerosol inhaler shortness of breath or wheezing pantoprazole 40 mg tablet,delayed 40 mg PO QAM #90 tabs 12/01/24 12/16/24 Rx release warfarin 1 mg tablet (Jantoven) 2 mg PO .COMPLEX Atherosclerotic 12/16/24 12/16/24 History heart disease warfarin 2 mg tablet 3 mg PO .COMPLEX Atherosclerotic 12/16/24 12/15/24 History heart disease triamcinolone acetonide 0.1 % 1 applic topical BID PRN SKIN 12/17/24 Unknown History 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 lactulose 10 gram/15 mL oral 20 ml PO QDAY 01/28/25 Unknown History solution (Constulose) metoclopramide HCl 5 mg tablet 2.5 mg (1/2 x 5 mg) PO QAC #50 tabs 03/17/25 Unknown Rx midodrine 10 mg tablet See Rx Instructions PO .COMPLEX To 03/25/25 Unknown History keep BP up during dialysis sucroferric oxyhydroxide 500 mg 500 mg PO TID To reduce phosphorus 05/27/25 Unknown History chewable tablet (Velphoro) in blood amino acids-protein hydrolysate 16 30 ml PO DAILY 06/23/25 Unknown History gram-100 kcal/30 mL oral liquid (Liquacel) docusate sodium 100 mg capsule 100 mg PO DAILY 06/23/25 Unknown History (Colace) lidocaine 4 % topical patch 1 patch topical BID PRN 08/27/25 Unknown History oxycodone 10 mg tablet 10 mg PO DIRECTED pain 20 days 09/04/25 Unknown Rx #20 tabs enoxaparin 60 mg/0.6 mL 60 mg subcut Q12H PRN 09/07/25 Unknown History subcutaneous syringe oxycodone 5 mg tablet 5 - 10 mg (1 - 2 x 5 mg) PO Q6H 09/16/25 Unknown Rx PRN pain 3 days #20 tabs doxycycline hyclate 100 mg capsule 100 mg PO BID chronically for MRSA 09/17/25 Unknown History fluconazole 100 mg tablet 100 mg PO QDAY chronically for 09/17/25 Unknown History yeast in urine levothyroxine 88 mcg tablet 88 mcg PO QDAY 09/17/25 Unknown History (Levoxyl) Allergy/AdvReac Type Severity Reaction Status Date / Time No Known Allergies Allergy Verified 09/22/25 07:57 Family History Father CAD (coronary artery disease) CABG Brother CAD (coronary artery disease) CABG Mother Diabetes Sister Breast cancer Diabetes Sister Cancer breast Diabetes Surgical History History of esophagogastroduodenoscopy (EGD) History of colonoscopy S/P arteriovenous (AV) fistula repair History of mechanical aortic valve replacement (~08/24/03) History of heart valve replacement with mechanical valve History of atrioventricular chiquita ablation History of heart valve replacement with mechanical valve History of evacuation of hematoma History of cholecystectomy History of appendectomy dual chamber pacemaker implantation (~10/2010) History of aortic valve replacement (~08/2003) History of mitral valve repair (~08/24/03) History of mechanical aortic valve replacement (~1986) Social History household members: spouse housing: house current occupational status: retired current occupational exposures/hazards: No history of recent travel: No Smoking Status: Never smoker alcohol intake: never substance use type: does not use caffeine: No what type of physical activity do you participate in: weight training and other details: Nustep frequency: 3-4 times per week duration: 45-60 minutes/day seatbelt use: always do you feel safe at home: Yes [facility] ED Constitutional Constitutional ED: Denies chills or fever(s) Cardiovascular Cardiovascular: Denies chest pain Respiratory/Chest Respiratory/Chest: Denies dyspnea Gastrointestinal Gastrointestinal: Denies abdominal pain, diarrhea or vomiting Genitourinary Genitourinary ED: Reports other Details: anuric at baseline Musculoskeletal Musculoskeletal: Reports back pain and other Details: chronic Integumentary Reports Abrasions Neurologic Neurologic: Denies paresthesias Hematologic/Lymphatic Hematologic/Lymphatic: Reports easy bleeding, easy bruising and other Details: on coumadin EXAM Physical Exam Const Vital Signs: 09/22/25 07:57 09/22/25 08:00 09/22/25 08:44 Temperature 98.7 F Temperature Source Oral Pulse Rate 85 71 Respiratory Rate 20 H 17 Respiratory Effort Normal Respiratory Depth Normal Respiratory Pattern Normal Blood Pressure 114/40 L 97/38 L Blood Pressure Mean 64 57 Pulse Ox 100 97 Oxygen Delivery Method Room Air Room Air Room Air 09/22/25 09:00 09/22/25 09:23 Temperature 97.1 F L Temperature Source Pulse Rate 70 69 Respiratory Rate 17 23 H Respiratory Effort Respiratory Depth Respiratory Pattern Blood Pressure 104/34 L 104/34 L Blood Pressure Mean 57 57 Pulse Ox 99 99 Oxygen Delivery Method Positive well developed Constitutional Narrative: Chronically ill-appearing, no acute distress General Appearance ED: well developed HEENT HEENT Narrative: No cephalohematoma appreciated. No hemotympanum. No epistaxis. No signs of basilar skull fracture. No signs of facial trauma. atraumatic Eyes PERRL and EOMs intact bilaterally Neck full ROM General: Negative for tenderness Chest Wall inspection of chest normal and palpation of chest normal Chest Narrative: Tunneled dialysis catheter present in the right anterior chest wall. No chest wall tenderness present. No crepitus present. Resp normal respiratory effort and clear to auscultation bilaterally Cardio regular rhythm Rate: regular rate GI normal to inspection, nondistended, normoactive bowel sounds and non-tender Back/Spine normal to inspection and no thoracic nor lumbar tenderness Back/Spine Narrative: No step-off sign. Patient is uncomfortable being sat up in bed but had no obvious bony tenderness to his back. Extremity normal to inspection and full ROM General Extremety ED: Negative for deformity or tenderness General Extremity: Negative for deformity Neuro Neuro Narrative: Patient at his cognitive baseline. Moving all extremities independently. No focal deficits appreciated. [place] Coma Scale: document GCS findings Spontaneous Obeys Commands Confused 14 Sensorium / Orientation: alert and oriented to person Psych Attitude: agitated Mood & Affect: Negative for tearful Skin Skin Narrative: Skin tear to the left forearm? states this is from a couple days ago. Bandage over it. Scattered excoriations on the scalp and body in very stages of healing. MDM MDM MDM Narrative Medical decision making narrative: Patient evaluated after what sound like mechanical fall out of bed. He is confused but seems to be at his baseline. No recent change in behavior per or new infectious symptoms. In addition patient reportedly had negative blood cultures through [facility] On 09/14 and has a second set of blood culture drawn the following day that are pending. His INR was supratherapeutic at 4.8 yesterday (goal 2.5-3.5) however he did not have his Coumadin last night. He is due for dialysis in a little over an hour. Sound like this was a mechanical fall. As he does not have any obvious neurologic deficits or signs of infection on exam she is comfortable deferring further workup and just evaluating for acute trauma based on his fall and anticoagulation. Will hold off on blood work at this time in an effort to try to get patient to dialysis this morning. Blood pressure soft in the ER but this is his baseline per . Patient is given his morning dose of oxycodone for his chronic pain. Anticipate if CT imaging is negative can be discharged home to dialysis. does comment that she is ordered a bed rolling to help prevent further falls from bed. CT does not show any acute traumatic process. Patient seems more comfortable on repeat evaluation. Hemodynamically stable. Discharged home to go to dialysis. Radiography Diagnostic Testing: Clinical Impression(s) from Imaging Studies Brain CT 09/22/25 08:41 IMPRESSION: No acute intracranial abnormalities. Reading Location: [facility] Cervical Spine CT 09/22/25 08:41 IMPRESSION: No acute injury to the cervical spine. Reading Location: [facility] Discharge Plan Triage Chief Complaint: Fall ED Provider: Jodi Friedman Dx/Rx/DC Orders Clinical Impression: Accidental fall from bed, Closed head injury, Anticoagulant long-term use, ESRD (end stage renal disease) on dialysis Instructions: ED Head Injury (Adult) Prescriptions: No Action albuterol sulfate 90 mcg/actuation HFA aerosol inhaler 2 puff inhalation Q4-6H PRN (Reason: shortness of breath or wheezing) Patient Comments: pt hasnt taken in over year metoclopramide HCl 5 mg tablet 2.5 mg PO QAC Qty: 50 1RF Rx Instructions: administer 30 minutes before meals midodrine 10 mg tablet See Rx Instructions PO .COMPLEX Patient Comments: Take up to 4 tabs on dialysis days Rx Instructions: orally; up to 4 tabs on dialysis days () Velphoro 500 mg tablet,chewable 500 mg PO TID lidocaine 4 % adhesive patch,medicated 1 patch topical BID PRN levothyroxine [Levoxyl] 88 mcg tablet 88 mcg PO QDAY fluconazole 100 mg tablet 100 mg PO QDAY doxycycline hyclate 100 mg capsule 100 mg PO BID Nephro-Baltazar 0.8 mg tablet 1 tab PO DAILY warfarin [Jantoven] 1 mg tablet 2 mg PO .COMPLEX Protocol: Dose Management Condition: Sunday Dose/Route: 2 mg Instruction: 1 x 2 mg tablet Condition: Sunday Dose/Route: 0 mg Instruction: 0 tablets Condition: Sunday Dose/Route: 0 mg Instruction: 0 tablets Condition: Sunday Dose/Route: 2 mg Instruction: 1 x 2 mg tablet Condition: Dose/Route: 2 mg Instruction: 1 x 2 mg tablet Condition: Sunday Dose/Route: 2 mg Instruction: 1 x 2 mg tablet Condition: Sunday Dose/Route: 2 mg Instruction: 1 x 2 mg tablet Protocol Text: Adjustment Start Date: Sunday09/21/25 INR Value: 4.8 INR Date: 09/21/25 Recheck Date: 09/23/25 Patient Comments: BASED ON INR Rx Instructions: 2 mg orally , Sun, Sun; warfarin 2 mg tablet 3 mg PO .COMPLEX Protocol: Dose Management Condition: Sunday Dose/Route: 2 mg Instruction: 1 x 2 mg tablet Condition: Sunday Dose/Route: 0 mg Instruction: 0 tablets Condition: Sunday Dose/Route: 0 mg Instruction: 0 tablets Condition: Sunday Dose/Route: 2 mg Instruction: 1 x 2 mg tablet Condition: Dose/Route: 2 mg Instruction: 1 x 2 mg tablet Condition: Sunday Dose/Route: 2 mg Instruction: 1 x 2 mg tablet Condition: Sunday Dose/Route: 2 mg Instruction: 1 x 2 mg tablet Protocol Text: Adjustment Start Date: Sunday09/21/25 INR Value: 4.8 INR Date: 09/21/25 Recheck Date: 09/23/25 Patient Comments: BASED ON INR Rx Instructions: 3 mg orally Sun, Sun, , Sat; lactulose [Constulose] 10 gram/15 mL solution 20 ml PO QDAY oxycodone 5 mg tablet 5 - 10 mg PO Q6H PRN (Reason: pain) 3 Days Qty: 20 0RF triamcinolone acetonide 0.1 % lotion 1 applic topical BID PRN (Reason: SKIN 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) Liquacel 16-100 gram-kcal/30 mL liquid 30 ml PO DAILY docusate sodium [Colace] 100 mg capsule 100 mg PO DAILY pantoprazole 40 mg tablet,delayed release (DR/EC) 40 mg PO QAM Qty: 90 3RF oxycodone 10 mg tablet 10 mg PO DIRECTED 20 Days Qty: 20 0RF Rx Instructions: 10mg p.o. at 5am and 10mg p.o. q 6 hours prn enoxaparin 60 mg/0.6 mL syringe 60 mg subcut Q12H PRN Primary Care Provider: David Menjivar Referrals: David Menjivar DO [Primary Care Provider, Family Practice] Print Language: Japanese Disposition Disposition: Home, Self Care Discharge Date/Time: 09/22/25 09:24
[2025-09-22 09:00] VITALS: BP 104/34; PULSE 70; RESP 17; O2SAT 99
[2025-09-22 09:23] VITALS: BP 104/34; PULSE 69; RESP 23; TEMP 36.2; O2SAT 99
== END 2025-09-22 09:24 | disposition home or self-care (01) ==
LOC: ED 09:15
PROVIDERS: Emergency Provider Emergency Medicine; PCP Family Medicine; Visit Provider Emergency Medicine
DX: S09.90XA Unspecified injury of head, initial encounter (principal); N18.6 End stage renal disease; I12.0 Hypertensive chronic kidney disease with stage 5 chronic kidney disease or end stage renal disease; W06.XXXA Fall from bed, initial encounter; Z95.2 Presence of prosthetic heart valve; Z99.2 Dependence on renal dialysis; Z79.01 Long term (current) use of 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; Z79.899 Other long term (current) drug therapy; Z86.16 Personal history of COVID-19
CPT/HCPCS: 70450; 72125; 99284